=== PATIENT | female | born 1995 | race Two or more races ===

== ENCOUNTER 2021-04-28 03:15 | Emergency (ER) | payer MEDICAID, SELFPAY ==
[2021-04-28 03:16] VITALS: BP 120/97; PULSE 77; RESP 18; TEMP 36.2; O2SAT 99; BMI 32.3
--- NOTE | 2021-04-28 03:23 | EKG12_ITS ---
Test Reason : CP Blood Pressure : / mmHG Vent. Rate : 094 BPM Atrial Rate : 094 BPM P-R Int : 192 ms QRS Dur : 084 ms QT Int : 358 ms P-R-T Axes : 040 057 037 degrees QTc Int : 447 ms Normal sinus rhythm Normal ECG Confirmed by LOLLY ALONZO, GABINO ([id number]), film editor LEELEE ESCAMILLA ([id number]) on 05/02/2021 7:47:48 AM Referred By: TAB Confirmed By:GABINO AMBROCIO MD
--- NOTE | 2021-04-28 03:23 | RAD_ITS ---
STUDY: X-RAY CHEST REASON FOR EXAM: Female, 26 years old. Chest pain TECHNIQUE: Portable, upright, AP chest radiograph COMPARISON: None. FINDINGS: The lungs are clear and expanded. There is no demonstrated pleural abnormality. Normal size heart. Normal mediastinum and graciela. Normal visualized pulmonary arteries. Normal visualized aortic arch and descending thoracic aorta. Normal visualized thoracic spine. Normal visualized ribs, clavicles, and shoulders. There is no demonstrated abnormality of the visualized soft tissue structures of the upper abdomen. RAD/Chest 1 View (Portable) IMPRESSION: Normal x-ray examination of the chest. Electronically Signed: Yang Gilbert MD at 4:19 EDT Tel , Service support ,
[2021-04-28 03:45] LABS: Absolute Lymphocyte Count 2.74 X10^3/uL (0.83-4.51); Absolute Neutrophil Count 3.9 X10^3/uL (2.0-7.7); Basophil# 0.02 X10^3/uL; Basophil% 0.3 % (0-1); Eosinophil# 0.11 X10^3/uL; Eosinophils% 1.5 % (0-5); Hematocrit 37.8 % (37-47); Hemoglobin 12.3 g/dL (12.0-15.0); Lymphocyte # 2.74 X10^3/ul (0.83-4.51); Lymphocyte % 38.2 % (19-41); Mean Corp Hgb Conc 32.5 g/dL (32-36); Mean Corpuscular Hgb 29.5 pg (27.0-32.0); Mean Corpuscular Volume 90.6 fL (81-99); Mean Platelet Vol. 11.8 fl (6.2-12.0); Monocyte# 0.41 X10^3/uL; Monocyte% 5.7 % (0-10); NRBC Flagged by Analyzer 0 % (0-5); Neutrophil # 3.89 X10^3/uL (2.7-7.7); Neutrophil % 54.2 % (47-70); Platelet Count 190 K/mm3 (150-450); RBC Distribution Width CV 12.7 % (11.6-14.6); RBC Distribution Width SD 41.9 fl (35.1-43.9); Red Blood Count 4.17 M/mm3 (4.2-5.4); White Blood Count 7.2 K/mm3 (4.4-11.0)
[2021-04-28 04:19] LABS: Anion Gap 6 (5-15); BUN 7 mg/dL (7-18); BUN/Creat Ratio 9.3 RATIO (10-20); Calcium,Total 8.7 mg/dL (8.5-10.1); Chloride 108 mmol/L (98-107); Creatinine, Serum 0.75 mg/dL (0.55-1.02); EST Glomerular Filtration Rate 99 mL/min (>60); Est Glom Filt Rate - Afr Amer 119 mL/min (>60); Estimated Creatinine Clearance 122.92 ml/min; Glucose 124 mg/dL (74-106); Potassium 3.9 mmol/L (3.5-5.1); Sodium Level 140 mmol/L (136-145); Troponin-I HS 4 pg/mL (3.0-54.0)
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
[2021-04-28 05:42] VITALS: RESP 16
== END 2021-04-28 05:43 | disposition home or self-care (01) ==
PROVIDERS: Emergency Provider Emergency Medicine
DX: R07.9 Chest pain, unspecified (principal); R20.2 Paresthesia of skin; M54.2 Cervicalgia; R20.0 Anesthesia of skin; R73.9 Hyperglycemia, unspecified; E66.9 Obesity, unspecified; F17.210 Nicotine dependence, cigarettes, uncomplicated
CPT/HCPCS: 71045; 80048; 84484; 85025; 87426; 93005; 99285; A4216

== ENCOUNTER 2021-05-17 23:35 | Emergency (ER) | payer MEDICAID, SELFPAY ==
[2021-05-17 23:36] VITALS: BP 137/96; PULSE 97; RESP 15; TEMP 36.6; O2SAT 100; BMI 33.0
== END 2021-05-18 00:20 | disposition left against medical advice (07) ==
LOC: ED 05-18 00:44
DX: R05.9 Cough, unspecified (principal); Z53.21 Procedure and treatment not carried out due to patient leaving prior to being seen by health care provider

== ENCOUNTER 2021-05-25 04:45 | Emergency (ER) | payer MEDICAID, SELFPAY ==
[2021-05-25 04:48] VITALS: BP 147/99; PULSE 104; RESP 16; TEMP 35.9; O2SAT 98; BMI 32.6
--- NOTE | 2021-05-25 05:05 | EDS_ITS ---
HPI History of Present Illness Chief Complaint: Wound Informant: patient Narrative Narrative: Patient presents with swelling under her arms. She states the armpit on the right has been swollen for so long she cannot remember. It is always very soft. It is never tender. It never gets red. She thought she would mention it. Because it is different than the other side. She also has an area under the left axilla that has been getting inflamed and then draining. It was first noticed about a month and a half or 2 months ago. It swelled up and then went down. It recently swelled up and then started draining a couple days ago. Is now going down again. No fevers or chills. No trauma. She has no history of Gray problems. She has never had these seen or looked at. No antibiotics. No firm diagnosis of hidradenitis suppurativa. No history of diabetes. Nothing makes them better or worse specifically. After they drained they do tend to get better on the left. The right side has never had pain discomfort or drainage. The right side has not changed to any degree that she knows of. [facility] Medical History Anxiety Home Medications sulfamethoxazole-trimethoprim [Bactrim DS] 1 tab PO BID #20 tab 05/25/21 [Rx Last Taken Unknown] Allergy/AdvReac Type Severity Reaction Status Date / Time acetaminophen [From Vicodin] Allergy Hives Verified 05/25/21 04:46 hydrocodone [From Vicodin] Allergy Hives Verified 05/25/21 04:46 Social History Smoking Status: Current every day smoker tobacco type: cigarettes ROS ROS ED Constitutional Constitutional ED: Denies chills or fever(s) ENT ENT ED: Denies sore throat Cardiovascular Cardiovascular: Denies chest pain Respiratory/Chest Respiratory/Chest: Denies cough or dyspnea Gastrointestinal Gastrointestinal: Denies abdominal pain, nausea or vomiting Musculoskeletal Musculoskeletal: Denies arthralgias, back pain, myalgias or neck pain Integumentary Reports abscess and other Details: See history of present illness. Neurologic Neurologic: Denies headache(s) or weakness Psychiatric Psychiatric: Denies anxiety or depression Endocrine Endocrinology: Denies polydipsia or polyuria Allergic/Immunologic Allergic/Immunologic ED: Denies mouth swelling or urticaria EXAM Physical Exam Const Vital Signs: 05/25/21 04:48 Temperature 96.7 F L Temperature Source Oral Pulse Rate 104 H Respiratory Rate 16 Blood Pressure 147/99 H Blood Pressure Mean 115 Pulse Ox 98 Oxygen Delivery Method Room Air Positive well nourished, well developed and obese General Appearance ED: well developed and NAD Nutritional Appearance: obese HEENT Negative for trauma Eyes General Eye ED: Negative for pale conjunctiva or scleral icterus Neck no JVD Resp normal respiratory effort and clear to auscultation bilaterally Cardio regular rate and regular rhythm GI normal to inspection, nondistended, normoactive bowel sounds and non-tender Palpation: soft Skin Skin Narrative: The right axilla has an area that just seems to be soft and swollen. It is approximately 7 x 10 cm. Not real well-circumscribed or defined. It is not at all tender. Is not red. No sign of abscess. This feels like it may either be a lipoma or possible accessory breast tissue since it has been there for so long. The left axilla does not have the swelling of the right. There is an area that has some firm swelling that is only about a centimeter half around. In the middle of it there is an open hole. There has been some drainage but no active drainage. There is some mild erythema. There is no fluctuance. MDM MDM MDM Narrative Medical decision making narrative: I explained to the patient that the axilla on the right needs follow-up. It may need ultrasound or even fine-needle biopsy. It does not need incision or drainage at this time. There is no sign of abscess formation whatsoever. The left side is already drained. It is going down. But there is some erythema. We will treat with antibiotics. I explained that this is more consistent with hidradenitis suppurativa on the left. This will likely need a more formal procedure for final treatment. I do not think incision would help at this point. She did have an appointment with a tub tender but she missed it. I explained she should follow-up with dermatology. I will also give a referral to surgery so she can be seen for these as I think that might be needed for this area especially in the right axilla. Discharge Plan Triage Chief Complaint: Wound ED Provider: Alberto Marks Dx/Rx/DC Orders Clinical Impression: Axillary hidradenitis suppurativa, Right axillary swelling Instructions: ED Hidradenitis Suppurativa, Abx Prescriptions: New sulfamethoxazole-trimethoprim [Bactrim DS] 800-160 mg tablet 1 tab PO BID Qty: 20 RF: 0 Primary Care Provider: Care Physician,No Primary Referrals: Grzegorz Weston MD [STAFF PHYSICIAN] - As soon as possible Care Physician,No Primary [Primary Care Provider] - Disposition Disposition: Home, Self Care
== END 2021-05-25 05:23 | disposition home or self-care (01) ==
PROVIDERS: Emergency Provider Emergency Medicine
DX: L73.2 Hidradenitis suppurativa (principal); F17.210 Nicotine dependence, cigarettes, uncomplicated; E66.9 Obesity, unspecified
CPT/HCPCS: 99282

== ENCOUNTER → 2021-06-01 15:14 | Outpatient (CLI) | payer MEDICAID, SELFPAY ==
--- NOTE | 2021-06-01 15:50 | RAD_ITS ---
STUDY: X-RAY - CERVICAL SPINE REASON FOR EXAM: Female, 26 years old. Pain and stiffness TECHNIQUE: 3 view(s) of the cervical spine were obtained. COMPARISON: None FINDINGS: Normal anterior atlantoaxial articulation. Normal odontoid process. There is straightening of the normal cervical lordosis. Normal vertebral bodies and endplates. There is minimal disc space narrowing C4-C5 C5-C6. Normal visualized intervertebral neuroforamina. The soft tissue structures are unremarkable. RAD/Cerv Spine 2 or 3 Views IMPRESSION: Minimal degenerative change. No visualized fracture. Straightening of the physiologic lordosis may be associated with muscle spasm or pain. Electronically Signed: Tamar Duff MD at 2:28 EDT Tel , Service support ,
[2021-06-01 16:52] LABS: Absolute Lymphocyte Count 2.34 X10^3/uL (0.83-4.51); Absolute Neutrophil Count 3.7 X10^3/uL (2.0-7.7); Basophil# 0.02 X10^3/uL; Basophil% 0.3 % (0-1); Eosinophil# 0.12 X10^3/uL; Eosinophils% 1.8 % (0-5); Hematocrit 38.4 % (37-47); Hemoglobin 12.8 g/dL (12.0-15.0); Lymphocyte # 2.34 X10^3/ul (0.83-4.51); Lymphocyte % 35.3 % (19-41); Mean Corp Hgb Conc 33.3 g/dL (32-36); Mean Corpuscular Hgb 29.5 pg (27.0-32.0); Mean Corpuscular Volume 88.5 fL (81-99); Mean Platelet Vol. 11.9 fl (6.2-12.0); Monocyte# 0.42 X10^3/uL; Monocyte% 6.3 % (0-10); NRBC Flagged by Analyzer 0 % (0-5); Neutrophil # 3.72 X10^3/uL (2.7-7.7); Neutrophil % 56.1 % (47-70); Platelet Count 222 K/mm3 (150-450); RBC Distribution Width CV 12.7 % (11.6-14.6); RBC Distribution Width SD 41.3 fl (35.1-43.9); Red Blood Count 4.34 M/mm3 (4.2-5.4); White Blood Count 6.6 K/mm3 (4.4-11.0)
[2021-06-01 16:59] LABS: Vitamin B12 337 pg/mL (211-911)
[2021-06-01 17:06] LABS: Hemoglobin A1c 6.3 % (3.8-5.6)
[2021-06-01 17:10] LABS: AST(SGOT) 14 U/L (15-37); Alanine Aminotransfer ALT/SGPT 29 U/L (13-56); Albumin, Serum 3.9 g/dL (3.2-5.0); Alkaline Phosphatase 91 U/L (45-117); Anion Gap 4 (5-15); BUN 6 mg/dL (7-18); BUN/Creat Ratio 7.5 RATIO (10-20); Calcium,Total 9.2 mg/dL (8.5-10.1); Chloride 105 mmol/L (98-107); EST Glomerular Filtration Rate 92 mL/min (>60); Est Glom Filt Rate - Afr Amer 111 mL/min (>60); Glucose 130 mg/dL (74-106); Magnesium 2.3 mg/dL (1.6-2.6); Protein, Total 7.9 g/dL (6.4-8.2); Sodium Level 137 mmol/L (136-145); Thyroid Stim Hormone (TSH) 0.55 uIU/mL (0.358-3.74)
== END ==
PROVIDERS: PCP Internal Medicine; Referring Provider Nurse Practitioner Family; Visit Provider Nurse Practitioner Family
DX: M54.2 Cervicalgia (principal); M54.12 Radiculopathy, cervical region; R20.2 Paresthesia of skin; F41.9 Anxiety disorder, unspecified; R73.09 Other abnormal glucose
CPT/HCPCS: 36415; 72040; 80053; 82607; 83036; 83735; 84443; 85025

== ENCOUNTER → 2021-06-09 12:49 | Outpatient (CLI) | payer MEDICAID, SELFPAY ==
[2021-06-13 18:07] LABS: Free Kappa Light Chains 16.7 mg/L (3.3-19.4); Free Lambda Light Chains 17.2 mg/L (5.7-26.3)
== END ==
PROVIDERS: PCP Internal Medicine; Referring Provider Psychiatry & Neurology Neurology; Visit Provider Psychiatry & Neurology Neurology
DX: R20.2 Paresthesia of skin (principal)
CPT/HCPCS: 36415; 82746; 83883

== ENCOUNTER 2024-04-03 06:09 | Emergency (ER) | payer MEDICAID, SELFPAY ==
[2024-04-03 06:10] VITALS: BP 129/99; PULSE 90; RESP 14; TEMP 36.7; O2SAT 98; BMI 30.8
[2024-04-03 06:16] VITALS: BP 129/99; PULSE 90; RESP 18; TEMP 36.7; O2SAT 99
--- NOTE | 2024-04-03 06:23 | EKG12_ITS ---
Test Reason : GEN ILLNESS Blood Pressure : / mmHG Vent. Rate : 083 BPM Atrial Rate : 083 BPM P-R Int : 190 ms QRS Dur : 086 ms QT Int : 372 ms P-R-T Axes : 031 053 030 degrees QTc Int : 437 ms Normal sinus rhythm Normal ECG Confirmed by LOLLY ALONZO, GABINO ([id number]), pictures editor LEELEE ESCAMILLA ([id number]) on 04/03/2024 1:56:29 PM Referred By: Confirmed By:GABINO AMBROCIO MD
--- NOTE | 2024-04-03 06:24 | EDS_ITS ---
HPI History of Present Illness Chief Complaint: General Illness Narrative Narrative: 29-year-old female presents with multiple somatic complaints, stating that yesterday, she began having a runny nose and she has sick contacts in her kids. She also recently found out that she was . She is unsure of her last menstrual period but thinks that it was February 17, approximately a month and a half ago. She denies any vaginal bleeding or pelvic pressure or pain, but states she had cramping. She believes she is a G7, P5 as she did a home test that was positive. She is now far along she is in her . She presents today because she states that she awoke this morning at 5 AM, approximately an hour and a half ago and had a fast, pounding heart rate. She states she still feels like her heart is racing. She is also diabetic and takes metformin 500 mg daily. She states with her last they changed her to insulin because she had gestational diabetes, but she has not followed up with an [facility] yet. [facility] Medical History Anxiety Paresthesias Cervical radiculopathy Cervicalgia Anxiety Home Medications ?Medication ?Instructions ?Recorded ?Last Taken ?Type duloxetine 30 mg capsule,delayed 30 mg PO DAILY #30 caps 06/01/21 Unknown Rx release (Cymbalta) duloxetine 30 mg capsule,delayed 30 mg PO DAILY #7 caps 06/09/21 Unknown Rx release duloxetine 60 mg capsule,delayed 60 mg PO DAILY #30 caps 06/09/21 Unknown Rx release ferrous sulfate 325 mg (65 mg PO 04/03/24 Unknown History iron) tablet (FeroSul) metformin 500 mg tablet 500 mg PO DAILY 04/03/24 Unknown History Allergy/AdvReac Type Severity Reaction Status Date / Time acetaminophen (From Vicodin) Allergy Hives Verified 04/03/24 06:10 hydrocodone (From Vicodin) Allergy Hives Verified 04/03/24 06:10 Family History Other Cancer Diabetes Seizures Social History Smoking Status: Current every day smoker tobacco type: cigarettes Tobacco: How many years used: 6 second hand exposure: Yes alcohol intake: current alcohol intake frequency: holidays/special occasions only substance use type: former substance user Date of last use: used some marijuana in the past ROS ROS ED ROS Narrative Constitutional: No fever, no chills. HEENT: No sore throat. No neck pain. No loss of vision. Positive nasal congestion and rhinorrhea. Cardiovascular: No chest pain. Positive fast, pounding heart rate/palpitations. No pedal edema. Respiratory: No cough, no shortness of breath. Abdominal: No abdominal pain. Cramping. No nausea. No vomiting. Genitourinary: No dysuria. No hematuria. Musculoskeletal: No myalgias. No arthralgias. Neurologic: Positive headaches. No dizziness. No lightheadedness. Skin: No rash. No change in color. Psychiatric: No depression. No anxiety. EXAM Physical Exam Narrative Exam Narrative: Afebrile. Vital signs noted. HEENT: Normocephalic. Atraumatic. PERRL, EOMI. Neck soft and supple. No point tenderness or step off. Alternating rhinorrhea and nasal congestion. Cardiovascular: Regular rate and rhythm. No murmurs, rubs, or gallops appreciated. Respiratory: No tachypnea. Lungs clear to auscultation bilaterally. Gastrointestinal: Abdomen soft, nontender, with normoactive bowel sounds. No rebound or guarding. Neurological: Awake. Alert. Nonfocal, nonlateralizing. Skin: No rash. Normal color. No pallor. Musculoskeletal: No pedal edema. Full range of motion extremities. Const Vital Signs: 04/03/24 06:10 04/03/24 06:10 04/03/24 06:16 Temperature 98.1 F 98.1 F Temperature Source Oral Oral Pulse Rate 90 90 Respiratory Rate 14 18 Respiratory Effort Normal Non-Labored Respiratory Pattern Normal Blood Pressure 129/99 H 129/99 H Blood Pressure Mean 109 109 Pulse Ox 98 99 Oxygen Delivery Method Room Air Room Air MDM MDM MDM Narrative Medical decision making narrative: Differential diagnosis includes upper respiratory infection from COVID/influenza/RSV versus other virus. I have low concern for pneumonia. Pulse ox is 98% on room air without evidence of hypoxia. For her palpitations, she may be dehydrated but she does not appear anemic on examination. Although she is not having vaginal bleeding or pelvic pain, given her cramping, ectopic would be in the differential. She will be swabbed for COVID and influenza and RSV. EKG will be obtained, but she is not tachycardic currently. I do not feel that she requires an x-ray. I will obtain a CBC and a CMP as well as a urine and hCG titer. Should her urine test be positive, hCG quantitative will be obtained. She may require ultrasound should she be to rule out ectopic. EKG was obtained and interpreted by myself independently as normal sinus rhythm at 83 bpm without ectopy or acute ST changes. No STEMI. She is not tachycardic on her EKG so I am unsure as to the cause of her reported palpitations. I reviewed her CBC and she has normal white count of 5.1, hemoglobin stable at 11.5, hematocrit 36.1, platelet count 167. When compared to previous laboratories, she is only slightly anemic so I do not feel that this would be the cause of her palpitations either. In review of her other laboratories, she has normal sodium of 136, potassium normal at 3.7, BUN of 7 and creatinine 0.74, glucose appropriately elevated at 110 with a normal anion gap of 5 so I doubt diabetic ketoacidosis. LFTs are grossly unremarkable. hCG quantitative elevated at 434. Although this is too low to see anything on ultrasound, this was ordered for baseline. I had a discussion with the patient that she needs to have her beta hCG redrawn in 2 days at this hospital and follow-up with the [facility] on-call. At this point in time, patient will be signed out to Dr. Guerin to check the urinalysis, and her COVID swab, and discussed the patient with Dr. Maurice to arrange for close follow-up. Additionally, patient was told that ectopic cannot be ruled out as well as possible miscarriage as she is unsure of her last menstrual period. I anticipate discharge, but final disposition is pending. Patient is in stable condition. History & Record Review Discussion w/independent historian: Patient Lab Data Attestation: I reviewed the patient's lab results. Labs: Laboratory Results - last 24 hr 04/03/24 06:30 WBC 5.1 RBC 4.25 Hgb 11.5 L Hct 36.1 L MCV 84.9 MCH 27.1 MCHC 31.9 L RDW Std Deviation 54.1 H RDW Coeff of Ghada 17.5 H Plt Count 167 MPV 11.2 Immature Gran % (Auto) 0.200 Neut % (Auto) 42.5 L Lymph % (Auto) 44.2 H [place] % (Auto) 10.9 H Eos % (Auto) 2.0 Baso % (Auto) 0.2 Absolute Neuts (auto) 2.2 Absolute Lymphs (auto) 2.23 Nucleated RBC % 0 Sodium 136 Potassium 3.7 Chloride 106 Carbon Dioxide 25.0 Anion Gap 5 BUN 7 Creatinine 0.74 Estim Creat Clear Calc 141.89 Est GFR (MDRD) Af Amer 118 Est GFR (MDRD) Non-Af 98 BUN/Creatinine Ratio 9.4 L Glucose 110 H Calcium 8.8 Total Bilirubin 0.10 L AST 16 ALT 17 Alkaline Phosphatase 50 Total Protein 7.1 Albumin 3.5 Globulin 3.6 Albumin/Globulin Ratio 1.0 HCG, Quant 434 H Discharge Plan Triage Chief Complaint: General Illness ED Provider: René Mohan Dx/Rx/DC Orders Prescriptions: No Action duloxetine 30 mg capsule,delayed release(DR/EC) 30 mg PO DAILY Qty: 7 0RF duloxetine 60 mg capsule,delayed release(DR/EC) 60 mg PO DAILY Qty: 30 2RF Rx Instructions: begin after completing one week course of duloxetine 30mg daily duloxetine [Cymbalta] 30 mg capsule,delayed release(DR/EC) 30 mg PO DAILY Qty: 30 1RF metformin 500 mg tablet 500 mg PO DAILY ferrous sulfate [FeroSul] 325 mg (65 mg iron) tablet PO Other Ambulatory Orders: hCG Titer Quant., Serum (Routine) Timeframe: 2 Days Facility: [facility] - Location: Laboratory Ordered By: René Mohan Primary Care Provider: Care Physician,No Primary Referrals: Kizzy Jimenez MD [Med Staff - Active Staff] - 3-5 Days [facility] Doctor,Out of [Non-Staff] - Print Language: Latvian
[2024-04-03 06:42] LABS: Bacteria 0 SEEN /hpf (None Seen); Mucous, Urine 0 SEEN /hpf (<or=2+); Red Blood Cells-Urine 0 SEEN /hpf (0-5); White Blood Cells 0 SEEN /hpf (0-5)
[2024-04-03 06:43] LABS: Absolute Lymphocyte Count 2.23 X10^3/uL (0.83-4.51); Absolute Neutrophil Count 2.2 X10^3/uL (2.0-7.7); Basophil# 0.01 X10^3/uL; Basophil% 0.2 % (0-1); Hematocrit 36.1 % (37-47); Hemoglobin 11.5 g/dL (12.0-15.0); Lymphocyte # 2.23 X10^3/ul (0.83-4.51); Lymphocyte % 44.2 % (19-41); Mean Corp Hgb Conc 31.9 g/dL (32-36); Mean Corpuscular Hgb 27.1 pg (27.0-32.0); Mean Corpuscular Volume 84.9 fL (81-99); Mean Platelet Vol. 11.2 fl (6.2-12.0); Monocyte# 0.55 X10^3/uL; Monocyte% 10.9 % (0-10); NRBC Flagged by Analyzer 0 % (0-5); Neutrophil # 2.15 X10^3/uL (2.7-7.7); Neutrophil % 42.5 % (47-70); Platelet Count 167 K/mm3 (150-450); RBC Distribution Width CV 17.5 % (11.6-14.6); RBC Distribution Width SD 54.1 fl (35.1-43.9); Red Blood Count 4.25 M/mm3 (4.2-5.4); White Blood Count 5.1 K/mm3 (4.4-11.0)
[2024-04-03 06:46] LABS: Color, Urine Yellow (Yellow); Glucose, Dipstick Normal (Normal); Ketone-Dipstick Negative (Negative); Leukocyte Esterase-Dipstick Negative /ul (Negative); Nitrite-Dipstick Negative (Negative); Occult Blood-Urine Negative /ul (Negative); Protein-Dipstick Negative (Negative); Specific Gravity, Urine 1.015 (1.002-1.030); Urine Bilirubin Dipstick Negative (Negative); Urine Clarity Clear (Clear); Urine Urobilinogen Normal (Normal)
[2024-04-03 06:50] LABS: Internal QC Validated? YES +Cl - CLEAR BKGD
[2024-04-03 06:52] LABS: Pregnancy, Urine Positive Negative
[2024-04-03 07:00] LABS: AST(SGOT) 16 U/L (15-37); Alanine Aminotransfer ALT/SGPT 17 U/L (13-56); Albumin, Serum 3.5 g/dL (3.2-5.0); Alkaline Phosphatase 50 U/L (45-117); Anion Gap 5 (5-15); BUN 7 mg/dL (7-18); BUN/Creat Ratio 9.4 RATIO (10-20); Calcium,Total 8.8 mg/dL (8.5-10.1); Chloride 106 mmol/L (98-107); Creatinine, Serum 0.74 mg/dL (0.55-1.02); EST Glomerular Filtration Rate 98 mL/min (>60); Est Glom Filt Rate - Afr Amer 118 mL/min (>60); Estimated Creatinine Clearance 141.89 ml/min; Globulin 3.6 g/dL (2.2-4.2); Glucose 110 mg/dL (74-106); Potassium 3.7 mmol/L (3.5-5.1); Protein, Total 7.1 g/dL (6.4-8.2); Sodium Level 136 mmol/L (136-145)
[2024-04-03 07:01] LABS: hCG Titer Quant., Serum 434 mIU/mL (1-3)
--- NOTE | 2024-04-03 07:02 | US_ITS ---
EXAM: US , TRANSVAGINAL CLINICAL INDICATION: Elevated Beta hcg Elevated Beta hcg TECHNIQUE: Real-time transvaginal obstetrical ultrasound of the maternal pelvis and a first trimester with image documentation. Transvaginal imaging was used for better evaluation of the fetus and adnexa. COMPARISON: No relevant prior studies available. FINDINGS: GESTATION: There is a 0.5 x 1.0 x 0.6 cm fluid collection in the endometrium of the uterine fundus which questionably represents an early intrauterine gestational sac. This is too small for age estimation. There is no demonstrated pole or yolk sac. PLACENTA/AMNIOTIC FLUID: Cannot be adequately evaluated due to the early gestational age. UTERUS/CERVIX: The uterus is anteverted and measures 12.3 x 9.3 x 7.4 cm. The endometrium is hyperechoic and is thickened, measuring 2.4 cm. No myometrial mass. OVARIES: Ovary was not successfully visualized. The left ovary measures 3.4 x 2.0 x 1.9 cm. There is vascular flow in the left ovary. FREE FLUID: No free fluid. US/Transvaginal w/Preg US IMPRESSION: 1. Small fluid collection in the endometrium of the uterine fundus might represent an early intrauterine gestation, however, the appearance is nonspecific.. 2. There are no positive findings for ectopic in this study, however, an occult ectopic cannot be excluded in the absence of a definitively demonstrated intrauterine gestation. Suggest correlation with serial quantitative ? hCG measurements as well as follow-up ultrasound.. Electronically Signed: Zack Carlos MD at 7:55 EDT ,
[2024-04-03 07:21] LABS: Squamous Epithelial Cells - UA 0-5 SEEN /hpf (5-10)
[2024-04-03 08:10] VITALS: BP 114/59; PULSE 71; RESP 19; O2SAT 97
[2024-04-03 09:57] VITALS: BP 106/70; PULSE 79; RESP 17; O2SAT 100
[2024-04-03 10:18] VITALS: BP 115/83; PULSE 89; RESP 18; TEMP 36.7; O2SAT 97
== END 2024-04-03 10:19 | disposition home or self-care (01) ==
PROVIDERS: Emergency Provider Emergency Medicine; Visit Provider Emergency Medicine
DX: O98.519 Other viral diseases complicating pregnancy, unspecified trimester (principal); O99.330 Smoking (tobacco) complicating pregnancy, unspecified trimester; Z79.84 Long term (current) use of oral hypoglycemic drugs; F17.210 Nicotine dependence, cigarettes, uncomplicated; U07.1 COVID-19; O24.119 Pre-existing type 2 diabetes mellitus, in pregnancy, unspecified trimester; Z3A.00 Weeks of gestation of pregnancy not specified
CPT/HCPCS: 76817; 80053; 81001; 81025; 84702; 85025; 87631; 93005; 99283

== ENCOUNTER → 2024-04-05 | Outpatient (CLI) | payer MEDICAID, SELFPAY ==
[2024-04-05 13:56] LABS: hCG Titer Quant., Serum 787 mIU/mL (1-3)
== END | disposition home or self-care (01) ==
LOC: LAB 13:17
PROVIDERS: Visit Provider Emergency Medicine
DX: R79.89 Other specified abnormal findings of blood chemistry (principal)
CPT/HCPCS: 84702

== ENCOUNTER 2024-05-08 03:47 | Emergency (ER) | payer MEDICAID, SELFPAY ==
[2024-05-08 03:47] VITALS: BP 125/79; PULSE 90; RESP 18; TEMP 36.8; O2SAT 99; BMI 31.3
--- NOTE | 2024-05-08 04:05 | RAD_ITS ---
INDICATION: dyspnea EXAMINATION/TECHNIQUE: X-RAY - XR Chest 2 Views COMPARISON: CR ChestSep 2020 3:39am FINDINGS: LINES/DEVICES: None. LUNGS: No consolidation, edema or effusion. No pneumothorax. MEDIASTINUM AND CARDIOVASCULAR STRUCTURES: Cardiac silhouette not enlarged. Central airways and mediastinal contour are unremarkable. BONES AND SOFT TISSUES: Unremarkable. RAD/Chest PA and Lateral IMPRESSION: No radiographic evidence of acute cardiopulmonary disease. Electronically Signed: Ning Hess MD at 4:43 EDT ,
--- NOTE | 2024-05-08 04:08 | EDS_ITS ---
HPI History of Present Illness Chief Complaint: Shortness of Breath Informant: patient and spouse/S.O. Narrative Narrative: Patient is a 29-year-old female with past medical history of anxiety iron deficiency anemia and diabetes on metformin. She states that just a few days ago she had undergo a D&C for a spontaneous miscarriage that led to profuse bleeding. She states that she stays up throughout the evening and roughly 2 hours prior to arrival while at rest she felt shaky and short of breath. She denies any sick symptoms such as congestion drainage or cough. She denies any hormone use or previous history of DVT/PE. She does state that she is concerned about need for blood transfusion based on the amount that she was bleeding during her miscarriage and therefore with the shortness of breath sensation she presents for evaluation [facility] Medical History Anxiety Paresthesias Cervical radiculopathy Cervicalgia Anxiety Home Medications ?Medication ?Instructions ?Recorded ?Last Taken ?Type duloxetine 30 mg capsule,delayed 30 mg PO DAILY #30 caps 06/01/21 Unknown Rx release (Cymbalta) duloxetine 30 mg capsule,delayed 30 mg PO DAILY #7 caps 06/09/21 Unknown Rx release duloxetine 60 mg capsule,delayed 60 mg PO DAILY #30 caps 06/09/21 Unknown Rx release ferrous sulfate 325 mg (65 mg 325 mg PO 04/03/24 Unknown History iron) tablet (FeroSul) metformin 500 mg tablet 500 mg PO DAILY 04/03/24 Unknown History Allergy/AdvReac Type Severity Reaction Status Date / Time acetaminophen (From Vicodin) Allergy Hives Verified 04/03/24 06:10 hydrocodone (From Vicodin) Allergy Hives Verified 04/03/24 06:10 Family History Other Cancer Diabetes Seizures Social History Smoking Status: Current every day smoker tobacco type: cigarettes Tobacco: How many years used: 6 second hand exposure: Yes alcohol intake: current alcohol intake frequency: holidays/special occasions only substance use type: former substance user Date of last use: used some marijuana in the past ROS ROS ED Constitutional Constitutional ED: Denies chills or fever(s) Eyes Eyes: Denies blurry vision or change in vision ENT ENT ED: Denies rhinorrhea or sore throat Cardiovascular Cardiovascular: Denies chest pain, palpitations or racing heartbeat Respiratory/Chest Respiratory/Chest: Reports dyspnea; Denies cough Gastrointestinal Gastrointestinal: Denies abdominal pain, diarrhea, nausea or vomiting Genitourinary Genitourinary ED: Denies dysuria Musculoskeletal Musculoskeletal: Denies myalgias Integumentary Denies rash Neurologic Neurologic: Denies headache(s) Psychiatric Psychiatric: Reports anxiety Hematologic/Lymphatic Hematologic/Lymphatic: Denies easy bleeding or easy bruising Allergic/Immunologic Allergic/Immunologic ED: Denies mouth swelling or tongue swelling EXAM Physical Exam Const Vital Signs: 05/08/24 03:47 Temperature 98.3 F Temperature Source Oral Pulse Rate 90 Respiratory Rate 18 Blood Pressure 125/79 H Blood Pressure Mean 94 Pulse Ox 99 Oxygen Delivery Method Room Air Positive well nourished and well developed General Appearance ED: well developed; Negative for pallor HEENT HEENT Narrative: No tongue or lip swelling no oral lesions no airway edema or compromise Eyes PERRL and EOMs intact bilaterally General Eye ED: Yes pale conjunctiva; Negative for scleral icterus Neck supple and no JVD Neck Narrative: No nuchal rigidity or meningeal signs Chest Wall palpation of chest normal Resp normal respiratory effort Resp Narrative: Patient has faint rhonchi present in the bilateral lower lobes but otherwise no nasal flaring retractions tachypnea accessory muscle use stridor or shortness of breath with speech Cardio regular rate and regular rhythm Rate: other Other Details: Heart is regular rate and rhythm without murmurs rubs or gallops Radial and carotid pulses are equal and symmetric Extremity normal to inspection Extremity Narrative: No asymmetric edema no pitting edema negative Homans' sign bilaterally Neuro oriented x3, CN's II-XII intact bilaterally and no sensory deficits noted Sensorium / Orientation: alert Motor Exam: strength 5/5 throughout Psych Psych Narrative: Patient has a nervous/anxious affect Mood & Affect: anxious Skin no rashes or lesions noted General Skin Exam: Negative for jaundice or pallor MDM MDM MDM Narrative Medical decision making narrative: Patient arrived to the ER with stable vitals and in no acute respiratory distress. She reported shortness of breath but was satting at 100% on room air and had no increased work of breathing or abnormal breath sounds. With her recent spontaneous miscarriage report of bleeding and D&C there is concern for acute blood loss anemia as well as pneumonia or PE. Secondary to this basic blood work was obtained with a D-dimer and chest x-ray. Chest x-ray revealed no acute findings in the lung. D-dimer was elevated however and therefore CTA was obtained. CTA was normal without findings for pneumonia pneumothorax pleural effusion or pulmonary embolus. The patient's hemoglobin is low at 8.6 and this is dropped roughly 3 points in the last 5 weeks. However she is not hypotensive or tachycardic she is not having bouts of orthostatic hypotension and reporting passing out with changes in position. She also states that her bleeding is much improved and only going through roughly 1-2 pads a day versus 3 pads an hour before she had her D&C. Therefore at this time as she is hemodynamically stable with a hemoglobin above a transfusion value and reports that her bleeding is minimal compared to previous I do not feel there is need for OB consultation or admission. Patient can be discharged and follow-up with them on an outpatient basis as previously directed History & Record Review Discussion w/independent historian: Patient Lab Data Attestation: I reviewed the patient's lab results. Labs: Laboratory Results - last 24 hr 05/08/24 04:13 WBC 7.4 RBC 3.01 L Hgb 8.6 L Hct 26.7 L MCV 88.7 MCH 28.6 MCHC 32.2 RDW Std Deviation 53.8 H RDW Coeff of Ghada 16.6 H Plt Count 142 L MPV 11.5 Immature Gran % (Auto) 0.300 Neut % (Auto) 46.4 L Lymph % (Auto) 43.4 H [place] % (Auto) 6.1 Eos % (Auto) 3.4 Baso % (Auto) 0.4 Absolute Neuts (auto) 3.4 Absolute Lymphs (auto) 3.19 Nucleated RBC % 0 D-Dimer Quant (PE/DVT) 0.91 H* Sodium 138 Potassium 4.1 Chloride 106 Carbon Dioxide 30.0 Anion Gap 2 L BUN 14 Creatinine 0.78 Estim Creat Clear Calc 135.58 Est GFR (MDRD) Af Amer 112 Est GFR (MDRD) Non-Af 92 BUN/Creatinine Ratio 17.9 Glucose 114 H Calcium 8.6 Magnesium 2.1 Radiography Diagnostic Testing: Clinical Impression(s) from Imaging Studies Chest X-Ray 05/08/24 04:05 IMPRESSION: No radiographic evidence of acute cardiopulmonary disease. Electronically Signed: Ning Hess MD at 4:43 EDT Reading Location ID and State: [facility] / [place] Tel , Service support , Chest CTA 05/08/24 04:44 IMPRESSION: Normal CTA chest examination, without a demonstrated pulmonary embolism or arterial dissection. Electronically Signed: Ning Hess MD at 5:30 EDT , 2 view chest x-ray as interpreted by the emergency medicine physician reveals no acute infiltrate pneumothorax or pleural effusion Discharge Plan Triage Chief Complaint: Shortness of Breath ED Provider: Nelson Ulloa Dx/Rx/DC Orders Clinical Impression: Anemia, Dyspnea, Anxiety Instructions: Anemia, ED Dyspnea Prescriptions: No Action duloxetine 30 mg capsule,delayed release(DR/EC) 30 mg PO DAILY Qty: 7 0RF duloxetine 60 mg capsule,delayed release(DR/EC) 60 mg PO DAILY Qty: 30 2RF Rx Instructions: begin after completing one week course of duloxetine 30mg daily duloxetine [Cymbalta] 30 mg capsule,delayed release(DR/EC) 30 mg PO DAILY Qty: 30 1RF metformin 500 mg tablet 500 mg PO DAILY ferrous sulfate [FeroSul] 325 mg (65 mg iron) tablet 325 mg PO Primary Care Provider: ARLINE CORADO Referrals: Scarlett Ma MD [Med Staff - Active Staff] - Care Physician,No Primary [Non-Staff] - Activity Restrictions/Additional Instructions: Please follow-up with your MEDICAL INFORMATION OFFICER as directed. Please notify them of your hemoglobin value of 8.6 today in the ER and request repeat labs prior to your appointment. If your bleeding drastically increases or you are having bouts of fainting or any further concerns please return to the ER for repeat evaluation Print Language: Turkish Disposition Disposition: Home, Self Care
[2024-05-08 04:20] LABS: Absolute Lymphocyte Count 3.19 X10^3/uL (0.83-4.51); Absolute Neutrophil Count 3.4 X10^3/uL (2.0-7.7); Basophil# 0.03 X10^3/uL; Basophil% 0.4 % (0-1); Eosinophil# 0.25 X10^3/uL; Eosinophils% 3.4 % (0-5); Hematocrit 26.7 % (37-47); Hemoglobin 8.6 g/dL (12.0-15.0); Lymphocyte # 3.19 X10^3/ul (0.83-4.51); Lymphocyte % 43.4 % (19-41); Mean Corp Hgb Conc 32.2 g/dL (32-36); Mean Corpuscular Hgb 28.6 pg (27.0-32.0); Mean Corpuscular Volume 88.7 fL (81-99); Mean Platelet Vol. 11.5 fl (6.2-12.0); Monocyte# 0.45 X10^3/uL; Monocyte% 6.1 % (0-10); NRBC Flagged by Analyzer 0 % (0-5); Neutrophil # 3.41 X10^3/uL (2.7-7.7); Neutrophil % 46.4 % (47-70); Platelet Count 142 K/mm3 (150-450); RBC Distribution Width CV 16.6 % (11.6-14.6); RBC Distribution Width SD 53.8 fl (35.1-43.9); Red Blood Count 3.01 M/mm3 (4.2-5.4); White Blood Count 7.4 K/mm3 (4.4-11.0)
[2024-05-08 04:39] LABS: Anion Gap 2 (5-15); BUN 14 mg/dL (7-18); BUN/Creat Ratio 17.9 RATIO (10-20); Calcium,Total 8.6 mg/dL (8.5-10.1); Chloride 106 mmol/L (98-107); Creatinine, Serum 0.78 mg/dL (0.55-1.02); D-Dimer Quantitative (DVT/PE) 0.91 FEU/ug/m (0.27-0.49); EST Glomerular Filtration Rate 92 mL/min (>60); Est Glom Filt Rate - Afr Amer 112 mL/min (>60); Estimated Creatinine Clearance 135.58 ml/min; Glucose 114 mg/dL (74-106); Magnesium 2.1 mg/dL (1.6-2.6); Potassium 4.1 mmol/L (3.5-5.1); Sodium Level 138 mmol/L (136-145)
--- NOTE | 2024-05-08 04:44 | CT_ITS ---
STUDY: CTA CHEST REASON FOR EXAM: Female, 29 years old. dyspnea with elevated d-dimer RADIATION DOSAGE (If Supplied By Facility): CTDIvol = ( 19.35 ) mGy, DLP = ( 488.15 ) mGycm TECHNIQUE: The examination was performed with the intravenous administration of ISOVUE 370 100ML. Post-processing of the angiographic images was performed, with multiplanar reformation and 3D reconstruction. The protocol utilizes one or more of the following dose reduction techniques: automated exposure control, adjustment of mA and/or kV according to patient size,and/or use of iterative reconstruction technique. COMPARISON: No relevant prior comparison study available FINDINGS: Normal enhancement of the main pulmonary artery and right and left pulmonary arteries. Normal enhancement of the bilateral peripheral pulmonary arteries. There is no demonstrated pulmonary embolism. Normal thoracic aorta and visualized great vessels. There is no demonstrated aortic dissection. Normal heart and pericardium. Normal mediastinum. Normal hilar regions. Normal visualized trachea and bronchi. The lungs are well expanded. Normal pulmonary parenchyma. Normal pleura. Normal chest wall structures. Normal osseous structures. Normal visualized upper abdomen. CT/CTA Chest W/WO Contrast IMPRESSION: Normal CTA chest examination, without a demonstrated pulmonary embolism or arterial dissection. Electronically Signed: Ning Hess MD at 5:30 EDT ,
[2024-05-08 05:47] VITALS: BP 106/62; PULSE 81; RESP 18; O2SAT 95
[2024-05-08 05:54] VITALS: BP 106/62; PULSE 81; RESP 16; TEMP 36.6; O2SAT 95
[2024-05-08 05:55] VITALS: O2SAT 95
== END 2024-05-08 05:55 | disposition home or self-care (01) ==
PROVIDERS: Emergency Provider Emergency Medicine; Visit Provider Emergency Medicine
DX: D64.9 Anemia, unspecified (principal); E11.9 Type 2 diabetes mellitus without complications; R06.00 Dyspnea, unspecified; F41.9 Anxiety disorder, unspecified; Z79.84 Long term (current) use of oral hypoglycemic drugs
CPT/HCPCS: 71046; 71275; 80048; 83735; 85025; 85379; 99282; Q9967; A4216

== ENCOUNTER 2024-05-18 09:00 | Emergency (ER) | payer MEDICAID, SELFPAY ==
[2024-05-18 09:00] VITALS: BP 142/91; PULSE 87; RESP 18; TEMP 36.1; O2SAT 100; BMI 31.1
--- NOTE | 2024-05-18 09:20 | CT_ITS ---
INDICATION: headache EXAMINATION: CT BRAIN - CT Head or Brain W/O Contrast Injection TECHNIQUE: Multiple axial images were obtained of the head without intravenous contrast. The protocol utilizes one or more of the following dose reduction techniques: automated exposure control, adjustment of mA and/or kV according to patient size,and/or use of iterative reconstruction technique. IV Contrast dosage and agent: None. RADIATION DOSAGE (If Supplied By Facility): CTDIvol = ( 44.99 ) mGy, DLP = ( 832.67 ) mGycm COMPARISON: No relevant prior comparison study available FINDINGS: BRAIN PARENCHYMA: No intra- or extra-axial hemorrhage. No evidence of acute infarct. No intracranial mass or mass effect. There is preservation of the bagley/white matter interface. Posterior fossa structures are unremarkable. CSF SPACES: Appropriate for age. No hydrocephalus. Basal cisterns are patent. CALVARIUM, SKULL BASE, PARANASAL SINUSES AND MASTOID AIR CELLS: Clear. No discrete lytic or blastic abnormalities. ORBITS: Both globes, extraocular muscles, optic nerves and retrobulbar fat appear unremarkable. CT/Brain/Head without Contrast IMPRESSION: Negative Brain CT without contrast. Electronically Signed: Vitaliy Alberto MD at 10:36 EDT ,
--- NOTE | 2024-05-18 09:26 | EX.ED.DYSGE1 ---
HPI History of Present Illness Chief Complaint: Headache Informant: patient Narrative Narrative: 29-year-old female presenting to the emergency room with headache. Patient states for the past week she has had a frontal headache intermittently. She states she takes ibuprofen and gets better but then it comes back. She states that has been more constant this morning. She states that she did drink alcohol last night which probably did not help. She denies any rashes or fever. She denies any nasal congestion earache. She notes that she had a miscarriage and D&C in the preceding months. She states that she is not ever been diagnosed with migraines. She denies any neck pain. She denies any visual changes arm or leg symptoms. Headache is not positional in nature. [facility] Medical History Anxiety Paresthesias Cervical radiculopathy Cervicalgia Anxiety Home Medications ?Medication ?Instructions ?Recorded ?Last Taken ?Type duloxetine 30 mg capsule,delayed 30 mg PO DAILY #30 caps 06/01/21 Unknown Rx release (Cymbalta) duloxetine 30 mg capsule,delayed 30 mg PO DAILY #7 caps 06/09/21 Unknown Rx release duloxetine 60 mg capsule,delayed 60 mg PO DAILY #30 caps 06/09/21 Unknown Rx release ferrous sulfate 325 mg (65 mg 325 mg PO 04/03/24 Unknown History iron) tablet (FeroSul) metformin 500 mg tablet 500 mg PO DAILY 04/03/24 Unknown History [id number]-stnwmjwxaxzyq-[id number] 1 cap PO TID PRN pain #15 caps 05/18/24 Unknown Rx 50 mg-300 mg-40 mg capsule (Fioricet) Allergy/AdvReac Type Severity Reaction Status Date / Time acetaminophen (From Vicodin) Allergy Hives Verified 05/18/24 09:02 hydrocodone (From Vicodin) Allergy Hives Verified 05/18/24 09:02 Family History Other Cancer Diabetes Seizures Social History Smoking Status: Current every day smoker tobacco type: cigarettes Tobacco: How many years used: 6 second hand exposure: Yes alcohol intake: current alcohol intake frequency: holidays/special occasions only substance use type: former substance user Date of last use: used some marijuana in the past ROS ROS ED Constitutional Constitutional ED: Denies chills, fever(s) or weight loss Eyes Eyes: Denies blurry vision, change in vision or diplopia ENT ENT ED: Denies ear pain, rhinorrhea or sore throat Cardiovascular Cardiovascular: Denies chest pain, orthopnea, palpitations or racing heartbeat Respiratory/Chest Respiratory/Chest: Denies cough, dyspnea or orthopnea Gastrointestinal Gastrointestinal: Denies abdominal pain, diarrhea, nausea or vomiting Genitourinary Genitourinary ED: Denies dysuria, hematuria or urinary frequency Musculoskeletal Musculoskeletal: Denies arthralgias, myalgias or neck pain Integumentary Denies abscess or rash Neurologic Neurologic: Reports headache(s); Denies weakness Psychiatric Psychiatric: Denies anxiety, depression, suicidal ideation or suicidal thoughts Endocrine Endocrinology: Denies polydipsia, polyphagia or polyuria Allergic/Immunologic Allergic/Immunologic ED: Denies mouth swelling, tongue swelling or urticaria EXAM Physical Exam Const Vital Signs: 05/18/24 09:00 05/18/24 11:00 05/18/24 13:00 Temperature 96.9 F L Temperature Source Temporal Pulse Rate 87 77 78 Respiratory Rate 18 Blood Pressure 142/91 H 108/76 132/86 H Blood Pressure Mean 108 86 101 Pulse Ox 100 99 Oxygen Delivery Method Room Air 05/18/24 13:22 05/18/24 13:23 Temperature 97.8 F 97.8 F Temperature Source Pulse Rate 77 77 Respiratory Rate 16 16 Blood Pressure 127/68 H 127/68 H Blood Pressure Mean 87 87 Pulse Ox 99 99 Oxygen Delivery Method Positive well nourished and well developed General Appearance ED: well developed HEENT Reports normocephalic, head/scalp atraumatic and moist mucous membranes Eyes PERRL and EOMs intact bilaterally Eyes Narrative: No photophobia. Normal consensual reflex. No conjunctival injection. No ocular pain with movements Neck no lymphadenopathy, supple and no JVD Resp normal respiratory effort and clear to auscultation bilaterally Cardio regular rate, regular rhythm and no murmurs GI normal to inspection, nondistended, normoactive bowel sounds and non-tender Palpation: soft Back/Spine no CVA tenderness and normal ROM Extremity normal to inspection General Extremety ED: Negative for edema General Extremity: Negative for edema Neuro oriented x3 and CN's II-XII intact bilaterally Sensorium / Orientation: alert Motor Exam: strength 5/5 throughout Psych mental status grossly normal Mood & Affect: Negative for depressed or tearful Skin no rashes or lesions noted and no wounds MDM MDM MDM Narrative Medical decision making narrative: Differential thyroid does include but not limited to migraine headache sinusitis venous thrombosis stroke intracranial hemorrhage A CBC was obtained as the patient was noted to be anemic following her procedure and her last ED visit. Her hemoglobin is up to 9.5 white count 6.4 platelet count of 260. Does not appear to be a shift in the white count. Electrolytes appear within normal limits glucose noted to be 112 CT of the brain shows no acute findings. Patient received a dose of Toradol but notes no improvement. I am rather limited what I can give her as she has her 3 small children with her and she is driving. This does not sound like classic migraine. She still notes that there is more of a component that when she gets up she feels a swooshing pain from her occiput to the forehead. I do not think this is sinus related. She is neurovascularly intact with no deficits she ambulates normally I can write for some Fioricet but she would like to try. Would recommend PCP follow-up continued ibuprofen as it helps just does not relieve return if worsening or concerns History & Record Review Discussion w/independent historian: Patient Lab Data Attestation: I reviewed the patient's lab results. Labs: Laboratory Results - last 24 hr 05/18/24 09:30 WBC 6.4 RBC 3.28 L Hgb 9.5 L Hct 29.5 L MCV 89.9 MCH 29.0 MCHC 32.2 RDW Std Deviation 51.3 H RDW Coeff of Ghada 15.5 H Plt Count 260 MPV 10.1 Immature Gran % (Auto) 0.200 Neut % (Auto) 58.0 Lymph % (Auto) 31.6 [place] % (Auto) 7.2 Eos % (Auto) 2.7 Baso % (Auto) 0.3 Absolute Neuts (auto) 3.7 Absolute Lymphs (auto) 2.02 Nucleated RBC % 0 Sodium 141 Potassium 3.8 Chloride 110 H Carbon Dioxide 28.0 Anion Gap 3 L BUN 11 Creatinine 0.74 Estim Creat Clear Calc 142.50 Est GFR (MDRD) Af Amer 119 Est GFR (MDRD) Non-Af 99 BUN/Creatinine Ratio 14.9 Glucose 112 H Calcium 8.9 Radiography Diagnostic Testing: Clinical Impression(s) from Imaging Studies Brain CT 05/18/24 09:20 IMPRESSION: Negative Brain CT without contrast. Electronically Signed: Vitaliy Alberto MD at 10:36 EDT Reading Location ID and State: [facility] / [place] Tel , Service support , Discharge Plan Triage Chief Complaint: Headache ED Provider: Trae Kessler Dx/Rx/DC Orders Clinical Impression: Headache Instructions: ED Headache Unspecified Prescriptions: New ysaiojongd-dflpfqeyqtxlz-kblz [Fioricet] 50-300-40 mg capsule 1 cap PO TID PRN (Reason: pain) Qty: 15 0RF No Action duloxetine 30 mg capsule,delayed release(DR/EC) 30 mg PO DAILY Qty: 7 0RF duloxetine 60 mg capsule,delayed release(DR/EC) 60 mg PO DAILY Qty: 30 2RF Rx Instructions: begin after completing one week course of duloxetine 30mg daily duloxetine [Cymbalta] 30 mg capsule,delayed release(DR/EC) 30 mg PO DAILY Qty: 30 1RF metformin 500 mg tablet 500 mg PO DAILY ferrous sulfate [FeroSul] 325 mg (65 mg iron) tablet 325 mg PO Primary Care Provider: Care Physician,No Primary Referrals: NOT,DEFINED [Non-Staff] - Print Language: Hebrew Disposition Disposition: Home, Self Care Discharge Date/Time: 05/18/24 13:23
[2024-05-18 09:50] LABS: Absolute Lymphocyte Count 2.02 X10^3/uL (0.83-4.51); Absolute Neutrophil Count 3.7 X10^3/uL (2.0-7.7); Basophil# 0.02 X10^3/uL; Basophil% 0.3 % (0-1); Eosinophil# 0.17 X10^3/uL; Eosinophils% 2.7 % (0-5); Hematocrit 29.5 % (37-47); Hemoglobin 9.5 g/dL (12.0-15.0); Lymphocyte # 2.02 X10^3/ul (0.83-4.51); Lymphocyte % 31.6 % (19-41); Mean Corp Hgb Conc 32.2 g/dL (32-36); Mean Corpuscular Volume 89.9 fL (81-99); Mean Platelet Vol. 10.1 fl (6.2-12.0); Monocyte# 0.46 X10^3/uL; Monocyte% 7.2 % (0-10); NRBC Flagged by Analyzer 0 % (0-5); Neutrophil # 3.71 X10^3/uL (2.7-7.7); Platelet Count 260 K/mm3 (150-450); RBC Distribution Width CV 15.5 % (11.6-14.6); RBC Distribution Width SD 51.3 fl (35.1-43.9); Red Blood Count 3.28 M/mm3 (4.2-5.4); White Blood Count 6.4 K/mm3 (4.4-11.0)
[2024-05-18 09:55] LABS: Anion Gap 3 (5-15); BUN 11 mg/dL (7-18); BUN/Creat Ratio 14.9 RATIO (10-20); Calcium,Total 8.9 mg/dL (8.5-10.1); Chloride 110 mmol/L (98-107); Creatinine, Serum 0.74 mg/dL (0.55-1.02); EST Glomerular Filtration Rate 99 mL/min (>60); Est Glom Filt Rate - Afr Amer 119 mL/min (>60); Glucose 112 mg/dL (74-106); Potassium 3.8 mmol/L (3.5-5.1); Sodium Level 141 mmol/L (136-145)
[2024-05-18 11:00] VITALS: BP 108/76; PULSE 77
[2024-05-18] MEDS: Ketorolac 30 MG/ML Syringe IV (11:46)
[2024-05-18 13:00] VITALS: BP 132/86; PULSE 78; O2SAT 99
[2024-05-18 13:22] VITALS: BP 127/68; PULSE 77; RESP 16; TEMP 36.6; O2SAT 99
[2024-05-18 13:23] VITALS: BP 127/68; PULSE 77; RESP 16; TEMP 36.6; O2SAT 99
== END 2024-05-18 13:23 | disposition home or self-care (01) ==
PROVIDERS: Emergency Provider Emergency Medicine; Visit Provider Emergency Medicine
DX: R51.9 Headache, unspecified (principal); F17.210 Nicotine dependence, cigarettes, uncomplicated
CPT/HCPCS: 70450; 80048; 85025; 96374; 99282; A4216

== ENCOUNTER 2024-06-16 06:02 | Emergency (ER) | payer MEDICAID, SELFPAY ==
[2024-06-16 06:02] VITALS: BP 139/86
[2024-06-16 06:03] VITALS: PULSE 91; RESP 18; TEMP 35.8; O2SAT 100; BMI 31.8
[2024-06-16 06:29] LABS: Absolute Lymphocyte Count 3.38 X10^3/uL (0.83-4.51); Absolute Neutrophil Count 4.1 X10^3/uL (2.0-7.7); Basophil# 0.04 X10^3/uL; Basophil% 0.5 % (0-1); Eosinophil# 0.18 X10^3/uL; Eosinophils% 2.2 % (0-5); Hemoglobin 9.8 g/dL (12.0-15.0); Lymphocyte # 3.38 X10^3/ul (0.83-4.51); Mean Corp Hgb Conc 31.6 g/dL (32-36); Mean Corpuscular Hgb 26.9 pg (27.0-32.0); Mean Corpuscular Volume 85.2 fL (81-99); Mean Platelet Vol. 10.4 fl (6.2-12.0); Monocyte# 0.54 X10^3/uL; Monocyte% 6.5 % (0-10); NRBC Flagged by Analyzer 0 % (0-5); Neutrophil % 49.7 % (47-70); Platelet Count 257 K/mm3 (150-450); RBC Distribution Width CV 14.6 % (11.6-14.6); RBC Distribution Width SD 45.7 fl (35.1-43.9); Red Blood Count 3.64 M/mm3 (4.2-5.4); White Blood Count 8.3 K/mm3 (4.4-11.0)
--- NOTE | 2024-06-16 06:33 | EX.ED.DYSGE1 ---
HPI History of Present Illness Chief Complaint: General Illness Informant: patient Narrative Narrative: Patient is a 29-year-old female with past medical history of anxiety. She states over the past 1 to 2 weeks she is felt like she has had an uncontrollable appetite despite eating is much as she wants. She states that she always feels warm and sweaty and that she has difficulty sleeping. She states that a few months ago she was seen her family doctor and reported her TSH was abnormal and she was never able to follow back up to confirm whether she truly had hyper or hypothyroidism. The patient states that she has not been able to see a family doctor and with these persistent symptoms and difficulty sleeping she is concerned this may be her thyroid and therefore comes in for evaluation [facility] Medical History Anxiety Paresthesias Cervical radiculopathy Cervicalgia Anxiety Home Medications ?Medication ?Instructions ?Recorded ?Last Taken ?Type metformin 500 mg tablet 500 mg PO DAILY 04/03/24 Unknown History Allergy/AdvReac Type Severity Reaction Status Date / Time acetaminophen (From Vicodin) Allergy Hives Verified 06/16/24 06:06 hydrocodone (From Vicodin) Allergy Hives Verified 06/16/24 06:06 Family History Other Cancer Diabetes Seizures Social History Smoking Status: Current every day smoker tobacco type: cigarettes Tobacco: How many years used: 6 second hand exposure: Yes alcohol intake: current alcohol intake frequency: holidays/special occasions only substance use type: former substance user Date of last use: used some marijuana in the past ROS ROS ED Constitutional Constitutional ED: Denies chills or fever(s) Eyes Eyes: Denies change in vision ENT ENT ED: Denies sore throat Cardiovascular Cardiovascular: Reports racing heartbeat; Denies chest pain or palpitations Respiratory/Chest Respiratory/Chest: Denies cough or dyspnea Gastrointestinal Gastrointestinal: Denies abdominal pain, diarrhea, nausea or vomiting Genitourinary Genitourinary ED: Denies dysuria Musculoskeletal Musculoskeletal: Denies myalgias Integumentary Denies rash Neurologic Neurologic: Denies headache(s) Psychiatric Psychiatric: Reports anxiety Hematologic/Lymphatic Hematologic/Lymphatic: Denies easy bleeding or easy bruising EXAM Physical Exam Const Vital Signs: 06/16/24 06:02 06/16/24 06:03 06/16/24 06:05 Temperature 96.5 F L Temperature Source Temporal Pulse Rate 91 Respiratory Rate 18 Respiratory Effort Normal Blood Pressure 139/86 H Blood Pressure Mean 103 Pulse Ox 100 Positive well nourished and well developed General Appearance ED: well developed; Negative for pallor HEENT Reports moist mucous membranes Eyes PERRL and EOMs intact bilaterally General Eye ED: Negative for scleral icterus Neck supple Neck Narrative: No palpable nodule or goiter noted on the thyroid Chest Wall palpation of chest normal Resp normal respiratory effort and clear to auscultation bilaterally Cardio regular rate and regular rhythm Rate: other Other Details: Heart is regular rate and rhythm without murmurs rubs or gallops Radial and carotid pulses are equal and symmetric GI normal to inspection, nondistended, normoactive bowel sounds, non-tender, non-distended and no masses GI Narrative: No voluntary guarding or rigidity or pulsatile mass Auscultation: normoactive bowel sounds Palpation: soft Extremity normal to inspection Extremity Narrative: No asymmetric edema no pitting edema negative Homans' sign bilaterally Neuro oriented x3, CN's II-XII intact bilaterally and no sensory deficits noted Sensorium / Orientation: alert Motor Exam: strength 5/5 throughout Psych Psych Narrative: Patient has a nervous/anxious affect Mood & Affect: anxious Skin no rashes or lesions noted and no wounds General Skin Exam: Negative for jaundice or pallor MDM MDM MDM Narrative Medical decision making narrative: Patient arrived to the ER hypertensive but otherwise with stable vitals. She had multiple complaints such as palpitations increased appetite difficulty sleeping and feeling overall flushed/warm. There is potential this could be related to hyperthyroidism so therefore TSH was obtained. She has a history of anemia in order to ensure there is no acute blood loss anemia stimuli and her symptoms a CBC was added. In order to ensure that she does not have acute kidney injury hypomagnesemia or hypokalemia as a potential cause a basic metabolic profile was also obtained. Blood work showed anemia with hemoglobin of 9.8 but chart review reveals this is her baseline. Remainder the labs did not reveal any clinically significant findings. Therefore at this time she does not have a cardiac dysrhythmia by exam there is no signs of infection or acute blood loss anemia or acute kidney injury electrolyte abnormality or thyroid dysfunction so there is no need for further intervention and she can follow-up as an outpatient for further testing. History & Record Review Discussion w/independent historian: Patient Lab Data Attestation: I reviewed the patient's lab results. Labs: Laboratory Results - last 24 hr 06/16/24 06:25 WBC 8.3 RBC 3.64 L Hgb 9.8 L Hct 31.0 L MCV 85.2 MCH 26.9 L MCHC 31.6 L RDW Std Deviation 45.7 H RDW Coeff of Ghada 14.6 Plt Count 257 MPV 10.4 Immature Gran % (Auto) 0.100 Neut % (Auto) 49.7 Lymph % (Auto) 41.0 [place] % (Auto) 6.5 Eos % (Auto) 2.2 Baso % (Auto) 0.5 Absolute Neuts (auto) 4.1 Absolute Lymphs (auto) 3.38 Nucleated RBC % 0 Sodium 139 Potassium 3.8 Chloride 108 H Carbon Dioxide 28.0 Anion Gap 3 L BUN 13 Creatinine 0.77 Estim Creat Clear Calc 138.63 Est GFR (MDRD) Af Amer 114 Est GFR (MDRD) Non-Af 94 BUN/Creatinine Ratio 16.9 Glucose 104 Calcium 9.0 Magnesium 2.0 TSH 0.884 Discharge Plan Triage Chief Complaint: General Illness ED Provider: Nelson Ulloa Dx/Rx/DC Orders Clinical Impression: Palpitations, Insomnia, Anxiety Instructions: What Is Insomnia?, ED Hyperthyroidism, ED Palpitations Prescriptions: No Action metformin 500 mg tablet 500 mg PO DAILY Primary Care Provider: Care Physician,No Primary Referrals: Susy Davis MD [Med Staff - Religious Education Coordinator] - Care Physician,No Primary [Primary Care Provider] - Activity Restrictions/Additional Instructions: Please follow-up with a family doctor for further testing but on today's laboratory values your potassium magnesium and thyroid values were within normal limits Print Language: Telugu Disposition Disposition: Home, Self Care
[2024-06-16 06:54] LABS: Anion Gap 3 (5-15); BUN 13 mg/dL (7-18); BUN/Creat Ratio 16.9 RATIO (10-20); Chloride 108 mmol/L (98-107); Creatinine, Serum 0.77 mg/dL (0.55-1.02); EST Glomerular Filtration Rate 94 mL/min (>60); Est Glom Filt Rate - Afr Amer 114 mL/min (>60); Estimated Creatinine Clearance 138.63 ml/min; Glucose 104 mg/dL (74-106); Potassium 3.8 mmol/L (3.5-5.1); Sodium Level 139 mmol/L (136-145); Thyroid Stim Hormone (TSH) 0.884 uIU/mL (0.358-3.740)
== END 2024-06-16 07:25 | disposition home or self-care (01) ==
PROVIDERS: Emergency Provider Emergency Medicine; Visit Provider Emergency Medicine
DX: R63.2 Polyphagia (principal); R00.2 Palpitations; F41.9 Anxiety disorder, unspecified; G47.00 Insomnia, unspecified; F17.210 Nicotine dependence, cigarettes, uncomplicated
CPT/HCPCS: 80048; 83735; 84443; 85025; 99282; A4216

== ENCOUNTER 2024-07-12 05:04 | Emergency (ER) | payer MEDICAID, SELFPAY ==
[2024-07-12 05:05] VITALS: BP 129/82; PULSE 102; RESP 18; TEMP 37.1; O2SAT 99; BMI 31.9
--- NOTE | 2024-07-12 05:51 | EDS_ITS ---
HPI History of Present Illness Chief Complaint: Cold Sx Informant: patient Onset/Context/Timing Onset: Yesterday Context: Sudden Onset Timing: Continuous Quality: Stabbing Location: Throat Worsened by: Movement Relieved by: Nothing Narrative Narrative: Patient presents with sore throat and headache that began yesterday. Patient describes her pain as stabbing. Patient states it is worse with movement. Patient states it radiates into her neck. Patient also admits to an occipital headache. Patient denies any fevers or chills. Patient denies any cough. Patient does admit to some mild pain in her chest. Patient denies any nausea or vomiting. Patient denies any rhinorrhea. [facility] Medical History Anxiety Paresthesias Cervical radiculopathy Cervicalgia Anxiety Home Medications ?Medication ?Instructions ?Recorded ?Last Taken ?Type metformin 500 mg tablet 500 mg PO DAILY 04/03/24 Unknown History amoxicillin 500 mg tablet 500 mg PO TID #30 tabs 07/12/24 Unknown Rx Allergy/AdvReac Type Severity Reaction Status Date / Time acetaminophen (From Vicodin) Allergy Hives Verified 07/12/24 05:04 hydrocodone (From Vicodin) Allergy Hives Verified 07/12/24 05:04 Family History Other Cancer Diabetes Seizures Social History Smoking Status: Former smoker quit date: 05/30/21 Tobacco: How many years used: 6 second hand exposure: Yes alcohol intake: current alcohol intake frequency: holidays/special occasions only substance use type: former substance user Date of last use: used some marijuana in the past ROS ROS ED Constitutional Constitutional ED: Denies chills or fever(s) Eyes Eyes: Denies blurry vision or change in vision ENT ENT ED: Reports sore throat; Denies rhinorrhea Cardiovascular Cardiovascular: Reports chest pain; Denies palpitations Respiratory/Chest Respiratory/Chest: Denies cough or dyspnea Gastrointestinal Gastrointestinal: Denies nausea or vomiting Genitourinary Genitourinary ED: Denies dysuria or hematuria Musculoskeletal Musculoskeletal: Reports neck pain; Denies back pain Integumentary Denies abscess or rash Neurologic Neurologic: Reports headache(s); Denies weakness Allergic/Immunologic Allergic/Immunologic ED: Denies mouth swelling or urticaria EXAM Physical Exam Const Vital Signs: 07/12/24 05:05 07/12/24 05:07 Temperature 98.8 F Temperature Source Oral Pulse Rate 102 H Respiratory Rate 18 Respiratory Effort Normal Non-Labored Respiratory Pattern Normal Blood Pressure 129/82 H Blood Pressure Mean 97 Pulse Ox 99 Oxygen Delivery Method Room Air Positive well nourished and well developed General Appearance ED: well developed and NAD HEENT Reports moist mucous membranes HEENT Narrative: Oropharynx is erythematous. There are no exudates noted. There is some postnasal drainage. Neck no lymphadenopathy, supple and no JVD Resp normal respiratory effort and clear to auscultation bilaterally Cardio regular rate and regular rhythm GI non-tender and non-distended Palpation: soft Neuro oriented x3, CN's II-XII intact bilaterally and no sensory deficits noted Sensorium / Orientation: alert Motor Exam: strength 5/5 throughout Psych mental status grossly normal MDM MDM MDM Narrative Medical decision making narrative: Differential diagnose includes strep pharyngitis, viral pharyngitis, and viral upper respiratory infection. Rapid strep will be obtained to assess for strep pharyngitis. COVID-19, RSV, and influenza PCR will be obtained to assess for viral upper respiratory infection. Lab Data Attestation: I reviewed the patient's lab results. Lab results narrative: Rapid strep was reviewed and was positive. Treatment and Re-Evaluation :: Patient was given a dose of tramadol here. Patient was advised of her findings. Patient was given a dose of amoxicillin here. Patient was given a prescription for amoxicillin. Patient was instructed to follow-up with her primary care physician in 5 to 7 days. Patient was instructed to take Tylenol or ibuprofen as needed for any pain or fever. Patient was instructed to return if worse in any way. Patient understood and was agreeable with the plan. All questions were answered. Discharge Plan Triage Chief Complaint: Cold Sx ED Provider: Abhinav Sofia Dx/Rx/DC Orders Clinical Impression: Acute streptococcal pharyngitis, Fatigue Instructions: ED Pharyngitis, Strep (Confirmed) Prescriptions: New amoxicillin 500 mg tablet 500 mg PO TID Qty: 30 0RF No Action metformin 500 mg tablet 500 mg PO DAILY Primary Care Provider: Care Physician,No Primary Referrals: Abhinav Gilbert MD [Med Staff - Automobile Leasing Supervisor] - 5-7 Days Care Physician,No Primary [Primary Care Provider] - Print Language: Telugu Disposition Disposition: Home, Self Care
[2024-07-12] MEDS: traMADol 50 MG Tablet PO (06:06)
[2024-07-12 07:23] VITALS: BP 110/67; PULSE 81; RESP 16; TEMP 36.6; O2SAT 99
[2024-07-12] MEDS: AMOXICILLIN 500 MG CAPSULE PO (07:23)
== END 2024-07-12 07:25 | disposition home or self-care (01) ==
PROVIDERS: Emergency Provider Emergency Medicine; Visit Provider Emergency Medicine
DX: J02.0 Streptococcal pharyngitis (principal); R53.83 Other fatigue; Z87.891 Personal history of nicotine dependence
CPT/HCPCS: 87631; 87651; 99283

== ENCOUNTER 2024-07-17 19:39 | Emergency (ER) | payer MEDICAID, SELFPAY ==
[2024-07-17 19:39] VITALS: BP 136/85; PULSE 86; RESP 16; TEMP 35.8; O2SAT 99; BMI 32.0
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
[2024-07-17] MEDS: Ibuprofen 600 MG Tablet PO (20:24)
== END 2024-07-17 20:27 | disposition home or self-care (01) ==
PROVIDERS: Emergency Provider Emergency Medicine; Visit Provider Emergency Medicine
DX: T23.021A Burn of unspecified degree of single right finger (nail) except thumb, initial encounter (principal); Z87.891 Personal history of nicotine dependence; X58.XXXA Exposure to other specified factors, initial encounter
CPT/HCPCS: 99282

== ENCOUNTER 2024-08-08 00:09 | Emergency (ER) | payer MEDICAID, SELFPAY ==
[2024-08-08 00:09] VITALS: BP 140/88; PULSE 81; RESP 16; TEMP 36.9; O2SAT 92; BMI 32.1
--- NOTE | 2024-08-08 00:44 | EDS_ITS ---
HPI History of Present Illness Chief Complaint: Chest Other Informant: patient Narrative Narrative: Patient is a 29-year-old female with past medical history of cervical radiculopathy and anxiety. She states over the past 2 to 3 days she has been feeling pain around the left breast. She states is localized around the areola and nipple. She states that there has been no fevers or chills and she denies any skin discoloration. She denies any recent trauma or breast-feeding. She states she is concerned she is developing infection secondary to her pain and therefore comes in for evaluation [facility] Medical History (Updated 08/08/24 @ 01:[address] Nelson Ulloa DO) Anxiety Paresthesias Cervical radiculopathy Cervicalgia Home Medications ?Medication ?Instructions ?Recorded ?Last Taken ?Type metformin 500 mg tablet 500 mg PO DAILY 04/03/24 Unknown History ibuprofen 600 mg tablet 600 mg PO Q6H PRN PRN fever or 07/12/24 Unknown Rx pain #20 TABLETS clindamycin HCl 300 mg capsule 300 mg PO 4X/DAY 7 days #28 caps 08/08/24 Unknown Rx Allergy/AdvReac Type Severity Reaction Status Date / Time acetaminophen (From Vicodin) Allergy Hives Verified 08/08/24 00:10 hydrocodone (From Vicodin) Allergy Hives Verified 08/08/24 00:10 Family History Other Cancer Diabetes Seizures Social History Smoking Status: Former smoker quit date: 05/30/21 Tobacco: How many years used: 6 second hand exposure: Yes alcohol intake: current alcohol intake frequency: holidays/special occasions only substance use type: former substance user Date of last use: used some marijuana in the past ROS ROS ED Constitutional Constitutional ED: Denies chills or fever(s) Eyes Eyes: Denies change in vision ENT ENT ED: Denies sore throat Cardiovascular Cardiovascular: Reports other Details: Negative pleuritic chest pain ; Denies chest pain, palpitations or racing heartbeat Respiratory/Chest Respiratory/Chest: Denies cough or dyspnea Gastrointestinal Gastrointestinal: Denies abdominal pain, diarrhea, nausea or vomiting Genitourinary Genitourinary ED: Denies dysuria Musculoskeletal Musculoskeletal: Reports other Details: Positive left breast pain Integumentary Denies abscess, Abrasions or rash Neurologic Neurologic: Denies headache(s) Hematologic/Lymphatic Hematologic/Lymphatic: Denies easy bleeding or easy bruising EXAM Physical Exam Const Vital Signs: 08/08/24 00:09 Temperature 98.5 F Temperature Source Temporal Pulse Rate 81 Respiratory Rate 16 Blood Pressure 140/88 H Blood Pressure Mean 105 Pulse Ox 92 Oxygen Delivery Method Room Air Positive well nourished and well developed General Appearance ED: well developed HEENT HEENT Narrative: Normocephalic atraumatic Eyes PERRL and EOMs intact bilaterally General Eye ED: Negative for scleral icterus Neck supple Chest Wall Chest Narrative: Left breast is normal in appearance. There is no erythema or warmth or streaking. No masses palpated. No nipple discharge noted. Resp normal respiratory effort and clear to auscultation bilaterally Cardio regular rate and regular rhythm Extremity normal to inspection Neuro oriented x3, CN's II-XII intact bilaterally and no sensory deficits noted Sensorium / Orientation: alert Motor Exam: strength 5/5 throughout Psych mental status grossly normal Skin no rashes or lesions noted Skin Narrative: No erythema or warmth no abrasions or ecchymosis no vesicular or pustule changes MDM MDM MDM Narrative Medical decision making narrative: Patient arrived to the ER with stable vitals and reported 2 to 3 days of left breast pain without trauma. She denies any recent breast-feeding to suggest mastitis. Physical exam does not show overlying soft tissue skin changes to suggest cellulitis or abscess or shingles. There is no nipple discharge noted. No masses palpated to suggest breast cancer or abscess. As the patient has concern for developing infection and has had pain without any type of trauma there is concern for potential underlying breast infection that is not progressed to the surface at this time. Therefore I will place her on clindamycin. Breast ultrasounds are the most sensitive study to check for mass or abscess but that cannot be performed at this time of night. As vitals are stable and there is no obvious physical exam findings to suggest the cause of her pain I will order an outpatient ultrasound. Lungs are clear she is not pleuritic chest pain and therefore I have low concern for pneumonia pneumothorax or pulmonary embolus and do not feel the need for chest x-ray or CTA. A plan of care of infection prophylaxis while awaiting outpatient study was discussed with the patient she is agreeable to it and therefore we discharged home at this time History & Record Review Discussion w/independent historian: Patient Discharge Plan Triage Chief Complaint: Chest Other Other Complaint: Female C/O ED Provider: Nelson Ulloa Dx/Rx/DC Orders Clinical Impression: Pain of left breast, Anxiety, Cervical radiculopathy Instructions: Breast Pain (Mastalgia) Prescriptions: New clindamycin HCl 300 mg capsule 300 mg PO 4X/DAY 7 Days Qty: 28 0RF No Action metformin 500 mg tablet 500 mg PO DAILY ibuprofen 600 mg tablet 600 mg PO Q6H PRN PRN (Reason: fever or pain) Qty: 20 0RF Other Ambulatory Orders: Breast Limited Unilateral (Routine) Facility: [facility] - Location: [facility] Ordered By: Dr. Nelson Ulloa Primary Care Provider: Care Physician,No Primary Referrals: Lesley South MD [Med Staff - Active Staff] - Care Physician,No Primary [Primary Care Provider] - Activity Restrictions/Additional Instructions: Please obtain the outpatient breast ultrasound to look for potential masses or an abscess. Your exam today does not reveal any signs of obvious infection but with your increasing pain take the clindamycin as directed for potential infection that is not reached the external surface yet. Follow-up with [facility] [employer] SET UP OPERATOR for further evaluation and return to the ER should you have any further concern. Print Language: Macanese Disposition Disposition: Home, Self Care Discharge Date/Time: 08/08/24 00:57
[2024-08-08] MEDS: Clindamycin HCl 150 MG Capsule 300 MG PO (00:56)
== END 2024-08-08 00:57 | disposition home or self-care (01) ==
PROVIDERS: Emergency Provider Emergency Medicine; Visit Provider Emergency Medicine
DX: N64.4 Mastodynia (principal); F41.9 Anxiety disorder, unspecified; M54.12 Radiculopathy, cervical region; Z87.891 Personal history of nicotine dependence
CPT/HCPCS: 99283

== ENCOUNTER 2025-01-11 21:47 | Emergency (ER) | payer MEDICAID, SELFPAY ==
[2025-01-11 21:48] VITALS: BP 158/97; PULSE 106; RESP 20; TEMP 36.9; O2SAT 100; BMI 33.3
[2025-01-11 21:52] VITALS: BP 158/97; PULSE 106; RESP 20; TEMP 36.9; O2SAT 100
--- OUTSIDE RECORDS SUMMARY | 2025-01-11 22:20 | XMS RPT_ITS | CCD ---
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 Bacteriuria; Translations: [Bacteriuria] Onset: 01-29-2019 01-29-2019 Episodic Inflammatory diseases of female pelvic organs (9 sources) Vaginitis; Translations: [Acute vaginitis] Onset: 01-29-2019 01-29-2019 Episodic Nonspecific chest pain (5 sources) Atypical chest pain; Translations: [Other chest pain] Onset: 08-25-2023 Episodic Other complications of (7 sources) Maternal tobacco use; Translations: [Smoking (tobacco) complicating , second trimester] Onset: 01-29-2019 01-29-2019 Episodic Other connective tissue disease (1 source) Other symptoms and signs involving the musculoskeletal system; Translations: [Other symptoms and signs involving the musculoskeletal system] Onset: 05-12-2023 Episodic Other connective tissue disease (1 source) Pain in right thigh; Translations: [Pain in right thigh] Onset: 02-13-2023 Episodic Other female genital disorders (3 sources) Vaginal discharge; Translations: [Other specified noninflammatory disorders of vagina] Onset: 03-15-2021 Episodic Other infections; including parasitic (7 sources) History of sexually transmitted disease; Translations: [Personal history of other infectious and parasitic diseases] Onset: 01-29-2019 01-29-2019 Episodic Other lower respiratory disease (3 sources) Cough; Translations: [Cough] Onset: 03-15-2021 Resolved: 04-14-2021 Episodic Other lower respiratory disease (2 sources) Shortness of breath; Translations: [Shortness of breath] Onset: 02-13-2023 Episodic Other lower respiratory disease (1 source) Dyspnea, unspecified; Translations: [Dyspnea, unspecified type] Onset: 12-13-2023 Episodic Other nervous system disorders (1 source) Anesthesia of skin; Translations: [Anesthesia of skin] Onset: 05-12-2023 Episodic Other nervous system disorders (7 sources) Numbness; Translations: [Anesthesia of skin] Onset: 12-09-2023 12-09-2023 Episodic Other nervous system disorders (5 sources) Numbness of face; Translations: [Anesthesia of skin] Onset: 12-09-2023 12-09-2023 Episodic Other nervous system disorders (1 source) Paresthesia of skin; Translations: [Facial paresthesia] Onset: 12-11-2023 Episodic Other screening for suspected conditions (not mental disorders or infectious disease) (1 source) Other specified abnormal findings of blood chemistry; Translations: [Other specified abnormal findings of blood chemistry] Onset: 04-24-2024 Episodic Residual codes; unclassified (7 sources) Gestation period, 14 weeks; Translations: [14 weeks gestation of ] Onset: 01-29-2019 01-29-2019 Episodic Spondylosis; intervertebral disc disorders; other back problems (1 source) Pain in thoracic spine; Translations: [Pain in thoracic spine] Onset: 02-13-2023 Episodic Results Test Name Value Interpretation Reference Range Facility A1Con 08-23-2024 Glucose [Mass/Vol] 134 mg/dL High <=114 [facility] Comment on above: Result Comment: Sarah mated Average Glucose calculated by equation ((28.7xA1C)-46.7) Estimated average glucose (eAG) is a calculated value from Hemoglobin A1C and is senior sales representative of the average blood glucose level in the last 2-3 month period. Normal range: less than 114 mg/dL Performed By: #### A 1C, ANEU, FT3, FT4, CMP, GFR, ADIFF, FERR, TSH, CBC, FE #### [facility] [address], [place] [address] HbA1c (Bld) [Mass fraction] 6.3 % Normal [facility] Comment on above: Result Comment: Inte rpretation of Hgb A1C results: <5.7% Normal 5.7% - 6.4% Prediabetes >6.4% Diabetes Samples from patients with hemolytic anemias or the presence of unstable hemoglobins like HbSS or HbSC will exhibit decreased glycated Hgb due to the shortened life span of the red cells. Results are not reliable in patients with chronic blood loss. Performed By: #### A 1C, ANEU, FT3, FT4, CMP, GFR, ADIFF, FERR, TSH, CBC, FE #### [facility] [address], [place] [address] .Auto Diffon 08-22-2024 Basophil, Absolute 0.0 10 3/mcL Normal 0.0-0.3 [facility] Comment on above: Performed By: #### A 1C, ANEU, FT3, FT4, CMP, GFR, ADIFF, FERR, TSH, CBC, FE #### [facility] [address] [place], [place] [address] Basophils/100 WBC (Bld) 0.5 % Normal 0.0-2.5 [facility] Comment on above: Performed By: #### A 1C, ANEU, FT3, FT4, CMP, GFR, ADIFF, FERR, TSH, CBC, FE #### [address] [address] Eosinophil, Absolute 0.1 10 3/mcL Normal 0.0-0.7 [facility] Comment on above: Performed By: #### A 1C, ANEU, FT3, FT4, CMP, GFR, ADIFF, FERR, TSH, CBC, FE #### [address] [address] Eosinophils/100 WBC (Bld) 2.2 % Normal 0.0-6.0 [facility] Comment on above: Performed By: #### A 1C, ANEU, FT3, FT4, CMP, GFR, ADIFF, FERR, TSH, CBC, FE #### [address] [address] Lymphocyte, Absolute 2.3 10 3/mcL Normal 0.9-4.3 [facility] Comment on above: Performed By: #### A 1C, ANEU, FT3, FT4, CMP, GFR, ADIFF, FERR, TSH, CBC, FE #### [address] [address] Lymphocytes/100 WBC (Bld) 40.9 % High 20.0-40.0 [facility] Comment on above: Performed By: #### A 1C, ANEU, FT3, FT4, CMP, GFR, ADIFF, FERR, TSH, CBC, FE #### [address] [address] Monocyte, Absolute 0.4 10 3/mcL Normal 0.1-1.4 [facility] Comment on above: Performed By: #### A 1C, ANEU, FT3, FT4, CMP, GFR, ADIFF, FERR, TSH, CBC, FE #### [address] [address] Monocytes/100 WBC (Bld) 7.2 % Normal 2.0-13.0 [facility] Comment on above: Performed By: #### A 1C, ANEU, FT3, FT4, CMP, GFR, ADIFF, FERR, TSH, CBC, FE #### [facility] [address], [place] [address] Neutrophils/100 WBC (Bld) 49.2 % Low 50.0-75.0 [facility] Comment on above: Performed By: #### A 1C, ANEU, FT3, FT4, CMP, GFR, ADIFF, FERR, TSH, CBC, FE #### [facility] [address] [place], [place] [address] .GFRon 08-22-2024 GFR Non- 87 ml/min/1.73sqm Normal [facility] Comment on above: Result Comment: GFR Population mean for , Non- Americans Ages 20-29 = 116 mL/min/1.73 sq.m. Ages 30-39 = 107 mL/min/1.73 sq.m. Ages 40-49 = 99 mL/min/1.73 sq.m. Ages 50-59 = 93 mL/min/1.73 sq.m. Ages 60-69 = 85 mL/min/1.73 sq.m. Ages 70+ = 75 mL/min/1.73 sq.m. Chronic Kidney Disease: Less than 60 mL/min/1.73 square meters End Stage Renal Disease: Less than 15 mL/min/1.73 square meters Performed By: #### A 1C, ANEU, FT3, FT4, CMP, GFR, ADIFF, FERR, TSH, CBC, FE #### [facility] [address] [place], [place] [address] GFR 106 ml/min/1.73sqm Normal [facility] Comment on above: Result Comment: GFR Population mean for , Non- Americans Ages 20-29 = 116 mL/min/1.73 sq.m. Ages 30-39 = 107 mL/min/1.73 sq.m. Ages 40-49 = 99 mL/min/1.73 sq.m. Ages 50-59 = 93 mL/min/1.73 sq.m. Ages 60-69 = 85 mL/min/1.73 sq.m. Ages 70+ = 75 mL/min/1.73 sq.m. Chronic Kidney Disease: Less than 60 mL/min/1.73 square meters End Stage Renal Disease: Less than 15 mL/min/1.73 square meters Performed By: #### A 1C, ANEU, FT3, FT4, CMP, GFR, ADIFF, FERR, TSH, CBC, FE #### [facility] [address] [place] [address] .NEUABSon 08-22-2024 Neutrophil, Absolute 2.7 10 3/mcL Normal 2.3-8.1 [facility] Comment on above: Performed By: #### A 1C, ANEU, FT3, FT4, CMP, GFR, ADIFF, FERR, TSH, CBC, FE #### [facility] [address] [place] [address] CBCon 08-22-2024 Erythrocyte distribution width (RBC) [Ratio] 17.9 % High 11.5-15.5 [facility] Comment on above: Performed By: #### A 1C, ANEU, FT3, FT4, CMP, GFR, ADIFF, FERR, TSH, CBC, FE #### [place] [address] Hematocrit (Bld) [Volume fraction] 34.1 % Normal 34.0-46.0 [facility] Comment on above: Performed By: #### A 1C, ANEU, FT3, FT4, CMP, GFR, ADIFF, FERR, TSH, CBC, FE #### [place] [address] Hgb 10.7 G/dL Low 12.0-16.0 [facility] Comment on above: Performed By: #### A 1C, ANEU, FT3, FT4, CMP, GFR, ADIFF, FERR, TSH, CBC, FE #### [place] [address] MCH (RBC) [Entitic mass] 25.3 pg Low 27.0-33.0 [facility] Comment on above: Performed By: #### A 1C, ANEU, FT3, FT4, CMP, GFR, ADIFF, FERR, TSH, CBC, FE #### [facility] [address] [place] [address] MCHC 31.4 G/dL Low 32.0-36.0 [facility] Comment on above: Performed By: #### A 1C, ANEU, FT3, FT4, CMP, GFR, ADIFF, FERR, TSH, CBC, FE #### [facility] [address] [place] [address] MCV (RBC) [Entitic vol] 80.4 fL Normal 80.0-99.0 [facility] Comment on above: Performed By: #### A 1C, ANEU, FT3, FT4, CMP, GFR, ADIFF, FERR, TSH, CBC, FE #### [facility] [address] [place] [address] Platelet 215 10 3/mcL Normal 150-450 [facility] Comment on above: Performed By: #### A 1C, ANEU, FT3, FT4, CMP, GFR, ADIFF, FERR, TSH, CBC, FE #### [facility] [address] [place] [address] Platelet mean volume (Bld) [Entitic vol] 8.8 fL Normal 6.6-10.5 [facility] Comment on above: Performed By: #### A 1C, ANEU, FT3, FT4, CMP, GFR, ADIFF, FERR, TSH, CBC, FE #### [place] [address] RBC 4.24 10 6/mcL Normal 4.10-5.30 [facility] Comment on above: Performed By: #### A 1C, ANEU, FT3, FT4, CMP, GFR, ADIFF, FERR, TSH, CBC, FE #### [place] [address] WBC 5.6 10 3/mcL Normal 4.5-10.8 [facility] Comment on above: Performed By: #### A 1C, ANEU, FT3, FT4, CMP, GFR, ADIFF, FERR, TSH, CBC, FE #### [facility] [address] [place] [address] CMPon 08-22-2024 Albumin Level 3.8 G/dL Normal 3.4-5.0 [facility] Comment on above: Performed By: #### A 1C, ANEU, FT3, FT4, CMP, GFR, ADIFF, FERR, TSH, CBC, FE #### [facility] [address] [place] [address] Albumin/Globulin [Mass ratio] 1.0 {ratio} Low 1.1-1.8 [facility] Comment on above: Performed By: #### A 1C, ANEU, FT3, FT4, CMP, GFR, ADIFF, FERR, TSH, CBC, FE #### [facility] [address] [place] [address] ALP [Catalytic activity/Vol] 76 U/L Normal 45-117 [facility] Comment on above: Performed By: #### A 1C, ANEU, FT3, FT4, CMP, GFR, ADIFF, FERR, TSH, CBC, FE #### [facility] [address] [place] [address] ALT [Catalytic activity/Vol] 28 U/L Normal 12-78 [facility] Comment on above: Performed By: #### A 1C, ANEU, FT3, FT4, CMP, GFR, ADIFF, FERR, TSH, CBC, FE #### [facility] [address] [place] [address] AST [Catalytic activity/Vol] 17 U/L Normal 15-37 [facility] Comment on above: Performed By: #### A 1C, ANEU, FT3, FT4, CMP, GFR, ADIFF, FERR, TSH, CBC, FE #### [facility] [address] [place] [address] Bili Total 0.4 mg/dL Normal 0.2-1.0 [facility] Comment on above: Result Comment: Use of this assay is not recommended for patients undergoing treatment with eltrombopag due to the potential for falsely elevated results. Performed By: #### A 1C, ANEU, FT3, FT4, CMP, GFR, ADIFF, FERR, TSH, CBC, FE #### [facility] [address] [place] [address] BUN/Creatinine Ratio 9.0 ratio Low 10.0-22.0 [facility] Comment on above: Performed By: #### A 1C, ANEU, FT3, FT4, CMP, GFR, ADIFF, FERR, TSH, CBC, FE #### [facility] [address] [place] [address] Calcium [Mass/Vol] 8.6 mg/dL Normal 8.5-10.1 [facility] Comment on above: Performed By: #### A 1C, ANEU, FT3, FT4, CMP, GFR, ADIFF, FERR, TSH, CBC, FE #### [facility] [address] [place] [address] Chloride [Moles/Vol] 106 mmol/L Normal 98-107 [facility] Comment on above: Performed By: #### A 1C, ANEU, FT3, FT4, CMP, GFR, ADIFF, FERR, TSH, CBC, FE #### [facility] [address] [place] [address] CO2 [Moles/Vol] 26 mmol/L Normal 21-32 [facility] Comment on above: Performed By: #### A 1C, ANEU, FT3, FT4, CMP, GFR, ADIFF, FERR, TSH, CBC, FE #### [place] [address] Creatinine [Mass/Vol] 0.78 mg/dL Normal 0.55-1.02 [facility] Comment on above: Result Comment: Test ing performed on Siemens Dimension Edmond analyzer using a modified kinetic Patricio technique. Performed By: #### A 1C, ANEU, FT3, FT4, CMP, GFR, ADIFF, FERR, TSH, CBC, FE #### [facility] [address] [place] [address] Electrolyte Balance 4.0 mEq/L Normal 4.0-15.0 [facility] Comment on above: Performed By: #### A 1C, ANEU, FT3, FT4, CMP, GFR, ADIFF, FERR, TSH, CBC, FE #### [facility] [address] [place], [place] [address] Globulin 3.7 G/dL Normal 2.5-4.6 [facility] Comment on above: Performed By: #### A 1C, ANEU, FT3, FT4, CMP, GFR, ADIFF, FERR, TSH, CBC, FE #### [facility] [address] [place] [id number] Glucose [Mass/Vol] 109 mg/dL High 70-100 [facility] Comment on above: Performed By: #### A 1C, ANEU, FT3, FT4, CMP, GFR, ADIFF, FERR, TSH, CBC, FE #### [facility] [address] [place] [address] Potassium [Moles/Vol] 4.0 mmol/L Normal 3.5-5.1 [facility] Comment on above: Performed By: #### A 1C, ANEU, FT3, FT4, CMP, GFR, ADIFF, FERR, TSH, CBC, FE #### [facility] [address] [place] [id number] Sodium [Moles/Vol] 136 mmol/L Normal 136-145 [facility] Comment on above: Performed By: #### A 1C, ANEU, FT3, FT4, CMP, GFR, ADIFF, FERR, TSH, CBC, FE #### [place] [address] Total Protein 7.5 G/dL Normal 6.0-8.3 [facility] Comment on above: Performed By: #### A 1C, ANEU, FT3, FT4, CMP, GFR, ADIFF, FERR, TSH, CBC, FE #### [facility] [address] [place] [address] Urea nitrogen [Mass/Vol] 7.0 mg/dL Normal 7.0-18.0 [facility] Comment on above: Performed By: #### A 1C, ANEU, FT3, FT4, CMP, GFR, ADIFF, FERR, TSH, CBC, FE #### [place] [address] FEon 08-22-2024 Iron [Mass/Vol] 38 ug/dL Low 50-170 [facility] Comment on above: Performed By: #### A 1C, ANEU, FT3, FT4, CMP, GFR, ADIFF, FERR, TSH, CBC, FE #### [facility] [address] [place] [address] Michael 08-22-2024 Ferritin 3.8 CD:[id number] Low 8.0-252.0 [facility] Comment on above: Performed By: #### A 1C, ANEU, FT3, FT4, CMP, GFR, ADIFF, FERR, TSH, CBC, FE #### [facility] [address] [place] [address] FT3on 08-22-2024 Free T3 [Mass/Vol] 2.66 pg/mL Normal 2.18-3.98 [facility] Comment on above: Performed By: #### A 1C, ANEU, FT3, FT4, CMP, GFR, ADIFF, FERR, TSH, CBC, FE #### [facility] [address] [place] [address] FT4on 08-22-2024 Free T4 [Mass/Vol] 0.99 ng/dL Normal 0.76-1.46 [facility] Comment on above: Performed By: #### A 1C, ANEU, FT3, FT4, CMP, GFR, ADIFF, FERR, TSH, CBC, FE #### [facility] [address] [place] [address] TSHon 08-22-2024 TSH 0.583 mIU/mL Normal 0.358-3.740 [facility] Comment on above: Performed By: #### A 1C, ANEU, FT3, FT4, CMP, GFR, ADIFF, FERR, TSH, CBC, FE #### [facility] [address] [place] [address] ALLIED HEALTHon 08-11-2024 [facility] HNO ID: [id number] Author: TIFFANY GRIMES RT(R) Service: Radiology Author Type: Technologist Type: Allied Health Filed: 08/11/2024 03:38 Note Text: Summary: CT Radiology Service Progress Note DATE OF SERVICE: August 11, 2024 TIME: 3:37 AM PATIENT IDENTITY VERIFICATION COMPLETED USING TWO (2) STANDARD IDENTIFIERS: Name and Date of confirmed by patient verbally. FALL SCREENING: Has the patient had 2 falls in the last year or 1 fall with injury or currently using an Ambulatory Assistive Device (Walker, Cane, Wheelchair, Crutches, etc.)? No PATIENT GENDER DATA: Assigned female at . status: : No status: NO. PATIENT RELEVANT IMPLANT DATA REVIEWED: Not Applicable PATIENT PRESENTS WITH AN IMPLANTABLE OR ATTACHED CLINICAL PROFESSOR: No ALLERGIES: Reviewed and unchanged CONTRAST ALLERGY: NO. EXAM: CT -CONTRAST INDUCED NEPHROPATHY RISK FACTORS: Not applicable CREATININE: Creatinine Date Value Ref Range Status 08/11/2024 0.63 0.51 - 0.95 mg/dL Final Comment: Patients receiving either N-Acetylcysteine (NAC) or Metamizole prior to venipuncture, may have falsely depressed results. 02/05/2024 0.71 0.51 - 0.95 mg/dL Final Comment: Patients receiving either N-Acetylcysteine (NAC) or Metamizole prior to venipuncture, may have falsely depressed results. 12/13/2023 0.78 0.51 - 0.95 mg/dL Final Comment: Patients receiving either N-Acetylcysteine (NAC) or Metamizole prior to venipuncture, may have falsely depressed results. Estimated Glomerular Filtration Rate Date Value Ref Range Status 08/11/2024 123 >=60 mL/min/1.73m? Final Comment: Estimated Glomerular Filtration Rate (eGFR) is calculated using the 2020 CKD-EPI creatinine equation. This equation utilizes serum creatinine, sex, and age as parameters. The creatinine assay has traceable calibration to isotope dilution-mass spectrometry. Refer to KDIGO guidelines for clinical interpretation. In patients with unstable renal function, e.g. those with acute kidney injury, the eGFR may not accurately reflect actual GFR. eGFR- (POCT) Date Value Ref Range Status 12/09/2023 >60 mL/min/1.73m2 Final P.O.C.T. RESULTS: POC done: Yes, See Lab Tab August 11, 2024 TREATMENT: Oral Hydration: ml water. PERIPHERAL IV DATA: Inpatient - refer to [facility] documentation RADIOLOGY DEPARTMENT: CT; Exam(s) Completed: Abdomen/Pelvis and PE Study SIGNATURE: RT Jazmin(R) PATIENT NAME: Lisa Mesa DATE: August 11, 2024 TIME: 3:37 AM Normal [facility] CBC W Auto Differential pane l (Bld)on 08-11-2024 Basophils (Bld) [#/Vol] 0.03 10*3/uL Normal <0.11 [facility] Comment on above: Order Comment: Speci men Type: BLOOD SPECIMEN Ordering Facility: [facility] Address: [address] [place] [address] Performed By: #### 2 432-, , HCG #### [facility] CLIA [id number] [address] [place] [address] [place] Basophils/100 WBC (Bld) 0.5 % Normal [facility] Comment on above: Order Comment: Speci men Type: BLOOD SPECIMEN Ordering Facility: [facility] Address: [address] [place] [id number] Performed By: #### 2 432-2, , HCG #### [facility] CLIA [id number] [address] [place] [address] [place] Differential cell count method Nom (Bld) Auto Normal [facility] Comment on above: Order Comment: Speci men Type: BLOOD SPECIMEN Ordering Facility: [facility] Address: [address] [place] [address] Performed By: #### 2 432-2, , HCG #### [facility] CLIA [id number] [address] [place], [place] [id number] [place] Eosinophils (Bld) [#/Vol] 0.14 10*3/uL Normal <0.46 [facility] Comment on above: Order Comment: Speci men Type: BLOOD SPECIMEN Ordering Facility: [facility] Address: [address] [place] [address] Performed By: #### 2 4320-2, , HCG #### [facility] CLIA [id number] [address] [place] [address] [place] Eosinophils/100 WBC (Bld) 2.2 % Normal [facility] Comment on above: Order Comment: Speci men Type: BLOOD SPECIMEN Ordering Facility: [facility] Address: [address] [place] [address] Performed By: #### 2 2, , HCG #### [facility] CLIA [id number] [address] [place] [address] [place] Erythrocyte distribution width (RBC) [Ratio] 15.6 % High 11.5-15.0 [facility] Comment on above: Order Comment: Speci men Type: BLOOD SPECIMEN Ordering Facility: [facility] Address: [address] [place] [address] Performed By: #### 2 2, , HCG #### [facility] CLIA [id number] [address] [place] [address] [place] Hematocrit (Bld) [Volume fraction] 32.8 % Low 36.0-46.0 [facility] Comment on above: Order Comment: Speci men Type: BLOOD SPECIMEN Ordering Facility: [facility] Address: [address] [place] [address] Performed By: #### 2 4320-2, , HCG #### [facility] CLIA [id number] [address] [place] [address] [place] Hemoglobin (Bld) [Mass/Vol] 10.3 g/dL Low 11.5-15.5 [facility] Comment on above: Order Comment: Speci men Type: BLOOD SPECIMEN Ordering Facility: [facility] Address: [address] [place] [address] Performed By: #### 2 4321-2, , HCG #### [facility] CLIA [id number] [address] [place] [address] [place] Immature granulocytes (Bld) [#/Vol] 10*3/uL Normal <0.10 [facility] Comment on above: Order Comment: Speci men Type: BLOOD SPECIMEN Ordering Facility: [facility] Address: [address] [place] [address] Performed By: #### 2 432-2, , HCG #### [facility] CLIA [id number] [address] [place] [address] [place] Immature granulocytes/100 WBC (Bld) 0.3 % Normal [facility] Comment on above: Order Comment: Speci men Type: BLOOD SPECIMEN Ordering Facility: [facility] Address: [address] [place] [address] Performed By: #### 2 432-2, , HCG #### [facility] CLIA [id number] [address] [place] [address] [place] Lymphocytes (Bld) [#/Vol] 2.36 10*3/uL Normal 1.00-4.00 [facility] Comment on above: Order Comment: Speci men Type: BLOOD SPECIMEN Ordering Facility: [facility] Address: [address] [place] [address] Performed By: #### 2 432-2, , HCG #### [facility] CLIA [id number] [address] [place] [address] [place] Lymphocytes/100 WBC (Bld) 36.6 % Normal [facility] Comment on above: Order Comment: Speci men Type: BLOOD SPECIMEN Ordering Facility: [facility] Address: [address] [place] [address] Performed By: #### 2 432-2, , HCG #### [facility] CLIA [id number] [address] [place] [address] MCH (RBC) [Entitic mass] 25.6 pg Low 26.0-34.0 [facility] Comment on above: Order Comment: Speci men Type: BLOOD SPECIMEN Ordering Facility: [facility] Address: [address] [place] [address] Performed By: #### 2 432-2, , HCG #### [facility] CLIA [id number] [address] [place] [address] [place] MCHC (RBC) [Mass/Vol] 31.4 g/dL Normal 30.5-36.0 [facility] Comment on above: Order Comment: Speci men Type: BLOOD SPECIMEN Ordering Facility: [facility] Address: [address] [place] [address] Performed By: #### 2 43207-31, , HCG #### [facility] CLIA [id number] [address] [place] [address] [place] MCV (RBC) [Entitic vol] 81.4 fL Normal 80.0-100.0 [facility] Comment on above: Order Comment: Speci men Type: BLOOD SPECIMEN Ordering Facility: [facility] Address: [address] [place] [address] Performed By: #### 2 4322, , HCG #### [facility] CLIA [id number] [address] [place] [address] [place] Monocytes (Bld) [#/Vol] 0.46 10*3/uL Normal <0.87 [facility] Comment on above: Order Comment: Speci men Type: BLOOD SPECIMEN Ordering Facility: [facility] Address: [address] [place] [address] Performed By: #### 2 432-2, , HCG #### [facility] CLIA [id number] [address] [place] [id number] [place] Monocytes/100 WBC (Bld) 7.1 % Normal [facility] Comment on above: Order Comment: Speci men Type: BLOOD SPECIMEN Ordering Facility: [facility] Address: [address] [place], [place] [address] Performed By: #### 2 4320-2, , HCG #### [facility] CLIA [id number] [address] [place] [address] [place] Neutrophils (Bld) [#/Vol] 3.44 10*3/uL Normal 1.45-7.50 [facility] Comment on above: Order Comment: Speci men Type: BLOOD SPECIMEN Ordering Facility: [facility] Address: [address] [place] [address] Performed By: #### 2 4320-08, , HCG #### [facility] CLIA [id number] [address] [place] [address] [place] Neutrophils/100 WBC (Bld) 53.3 % Normal [facility] Comment on above: Order Comment: Speci men Type: BLOOD SPECIMEN Ordering Facility: [facility] Address: [address] [place] [address] Performed By: #### 2 2, , HCG #### [facility] CLIA [id number] [address] [place] [address] [place] Nucleated RBC (Bld) [#/Vol] 10*3/uL Normal <0.01 [facility] Comment on above: Order Comment: Speci men Type: BLOOD SPECIMEN Ordering Facility: [facility] Address: [address] [place] [address] Performed By: #### 2 4320-2, , HCG #### [facility] CLIA [id number] [address] [place] [address] [place] Nucleated RBC/100 WBC (Bld) [Ratio] 0.0 /100 WBC Normal [facility] Comment on above: Order Comment: Speci men Type: BLOOD SPECIMEN Ordering Facility: [facility] Address: [address] [place], [place] [address] Performed By: #### 2 4321-2, , HCG #### [facility] CLIA [id number] [address] [place] [address] [place] Platelet mean volume (Bld) [Entitic vol] 10.8 fL Normal 9.0-12.7 [facility] Comment on above: Order Comment: Speci men Type: BLOOD SPECIMEN Ordering Facility: [facility] Address: [address] [place], [place] [address] Performed By: #### 2 432-2, , HCG #### [facility] CLIA [id number] [address] [place], [place] [address] [place] Platelets (Bld) [#/Vol] 220 10*3/uL Normal 150-400 [facility] Comment on above: Order Comment: Speci men Type: BLOOD SPECIMEN Ordering Facility: [facility] Address: [address] [place] [address] Performed By: #### 2 4320-2, , HCG #### [facility] CLIA [id number] [address] [place], [place] [address] [place] RBC (Bld) [#/Vol] 4.03 10*6/uL Normal 3.90-5.20 [facility] Comment on above: Order Comment: Speci men Type: BLOOD SPECIMEN Ordering Facility: [facility] Address: [address] [place] [address] Performed By: #### 2 4321-2, , HCG #### [facility] CLIA [id number] [address] [place] [address] [place] WBC (Bld) [#/Vol] 6.45 10*3/uL Normal 3.70-11.00 [facility] Comment on above: Order Comment: Speci men Type: BLOOD SPECIMEN Ordering Facility: [facility] Address: [address] [place] [address] [place] [id number] Performed By: #### 2 4321-2, 10052-1, [facility] #### [facility] CLIA [id number] [address] [place], [place] [address] [place] CT ABD/PEL W IVCONon 025 CT ABD/PEL W IVCON * * *Final Report* * * DATE OF EXAM: Aug 11 2024 3:50AM [facility] 0530 - CT ABD/PEL W IVCON / PROCEDURE REASON: Diarrhea * * * * Physician Interpretation * * * * EXAMINATION: CHEST CTA (NON GATED) WITH CONTRAST (PULMONARY EMBOLISM PROTOCOL) CT ABDOMEN PELVIS WITH IV CONTRAST Clinical History: Shortness of breath pain diarrhea Technique: Spiral CT acquisition of the chest from the thoracic inlet to the upper abdomen following IV contrast. Axial 1 and 3 mm thick slices plus coronal and sagittal reformatted images. MQ: CTCP_5 Contrast: 100 mL Omnipaque [address] Radiation dose: Integrated Dose-length product (DLP) for this visit = 2063.75 mGy*cm CT Dose Reduction Employed: Automated exposure control(AEC) and iterative recon CTA: Post-processed images (Maximum intensity Projection (MIP), Volume-rendered (VR), or Surface shaded display images (SSD) were created, reviewed and archived. Comparison: Chest CT 12/13/2023, CT abdomen pelvis 03/17/2022 RESULT: Limitations: None. Evaluation for thromboembolic disease: - Right heart chambers: No thromboembolic disease. - Main pulmonary arteries: No thromboembolic disease. - Lobar pulmonary arteries: No thromboembolic disease. - Segmental pulmonary arteries: No thromboembolic disease. - Subsegmental pulmonary arteries: No thromboembolic disease. - Additional pulmonary artery findings: The main pulmonary artery is dilated and can be seen with pulmonary arterial hypertension.. Lines, tubes, and devices: None. Lung parenchyma and airways: No consolidation. No suspicious pulmonary nodule. The central airways are patent. Pleural space: No pleural effusion. No pleural thickening. Lower neck, lymph nodes, and mediastinum: The imaged thyroid gland is normal. No lymphadenopathy in the supraclavicular, axillary, mediastinal, or hilar regions. Heart, pericardium, and thoracic vessels: The thoracic aorta is normal in caliber. The cardiac chambers are normal in size. No coronary artery atherosclerotic calcifications are noted, although the study is not optimized for coronary assessment. No pericardial effusion or thickening. Bones and soft tissues: No destructive bone lesion. Chest wall is unremarkable. abdomen: Normal kidneys adrenal glands spleen pancreas liver stomach small and large bowel appendix urinary bladder. Uterus present. No suspicious osseous lesion. Bilateral subcortical sclerosis of the sacroiliac joints can represent chronic sacroiliitis. Ventral abdominal wall diastasis. Localizer images: No additional findings. IMPRESSION: 1. No CT evidence of pulmonary embolism. 2. No acute abdominal abnormality Material Mover: [facility] Transcribe Date/Time: Aug 11 2024 3:59A Dictated by : MARCELO LAI MD This examination was interpreted and the report reviewed and electronically signed by: MARCELO LAI MD on Aug 11 2024 4:12AM EST [id number] Normal [facility] CTA CHEST (NON GATED) W IVCO N PEon 08-11-2024 CTA CHEST (NON GATED) W IVCON PE * * *Final Report* * * DATE OF EXAM: Aug 11 2024 3:50AM [facility] 0564 - CTA CHEST (NON GATED) W IVCON PE / PROCEDURE REASON: Pulmonary embolism (PE) suspected, high prob * * * * Physician Interpretation * * * * EXAMINATION: CHEST CTA (NON GATED) WITH CONTRAST (PULMONARY EMBOLISM PROTOCOL) CT ABDOMEN PELVIS WITH IV CONTRAST Clinical History: Shortness of breath pain diarrhea Technique: Spiral CT acquisition of the chest from the thoracic inlet to the upper abdomen following IV contrast. Axial 1 and 3 mm thick slices plus coronal and sagittal reformatted images. MQ: CTCP_5 Contrast: 100 mL Omnipaque [address] Radiation dose: Integrated Dose-length product (DLP) for this visit = 2063.75 mGy*cm CT Dose Reduction Employed: Automated exposure control(AEC) and iterative recon CTA: Post-processed images (Maximum intensity Projection (MIP), Volume-rendered (VR), or Surface shaded display images (SSD) were created, reviewed and archived. Comparison: Chest CT 12/13/2023, CT abdomen pelvis 03/17/2022 RESULT: Limitations: None. Evaluation for thromboembolic disease: - Right heart chambers: No thromboembolic disease. - Main pulmonary arteries: No thromboembolic disease. - Lobar pulmonary arteries: No thromboembolic disease. - Segmental pulmonary arteries: No thromboembolic disease. - Subsegmental pulmonary arteries: No thromboembolic disease. - Additional pulmonary artery findings: The main pulmonary artery is dilated and can be seen with pulmonary arterial hypertension.. Lines, tubes, and devices: None. Lung parenchyma and airways: No consolidation. No suspicious pulmonary nodule. The central airways are patent. Pleural space: No pleural effusion. No pleural thickening. Lower neck, lymph nodes, and mediastinum: The imaged thyroid gland is normal. No lymphadenopathy in the supraclavicular, axillary, mediastinal, or hilar regions. Heart, pericardium, and thoracic vessels: The thoracic aorta is normal in caliber. The cardiac chambers are normal in size. No coronary artery atherosclerotic calcifications are noted, although the study is not optimized for coronary assessment. No pericardial effusion or thickening. Bones and soft tissues: No destructive bone lesion. Chest wall is unremarkable. abdomen: Normal kidneys adrenal glands spleen pancreas liver stomach small and large bowel appendix urinary bladder. Uterus present. No suspicious osseous lesion. Bilateral subcortical sclerosis of the sacroiliac joints can represent chronic sacroiliitis. Ventral abdominal wall diastasis. Localizer images: No additional findings. IMPRESSION: 1. No CT evidence of pulmonary embolism. 2. No acute abdominal abnormality Material Mover: [facility] Transcribe Date/Time: Aug 11 2024 3:59A Dictated by : MARCELO LAI MD This examination was interpreted and the report reviewed and electronically signed by: MARCELO LAI MD on Aug 11 2024 4:12AM EST [id number] Normal [facility] Comprehensive metabolic 2000 panelon 08-11-2024 Albumin [Mass/Vol] 3.6 g/dL Normal 3.2-5.0 [facility] Comment on above: Order Comment: Jessica rojo Type: BLOOD SPECIMEN Ordering Facility: [facility] Address: [address] [place] [address] Performed By: #### 2 4321-2, 86863-5, HCG #### [facility] CLIA [id number] [address] [place] [address] [place] ALP [Catalytic activity/Vol] 83 U/L Normal 45-117 [facility] Comment on above: Order Comment: Speci men Type: BLOOD SPECIMEN Ordering Facility: [facility] Address: [address] [place] [address] Performed By: #### 2 4321-2, , HCG #### [facility] CLIA [id number] [address] [place], [place] [address] [place] ALT [Catalytic activity/Vol] 21 U/L Normal 13-61 [facility] Comment on above: Order Comment: Speci men Type: BLOOD SPECIMEN Ordering Facility: [facility] Address: [address] [place] [address] Result Comment: Resu lts may be falsely depressed after the administration of Sulfasalazine and/or Sulfapyridine. Performed By: #### 2 432-2, , HCG #### [facility] CLIA [id number] [address] [place], [place] [address] [place] Anion gap [Moles/Vol] 5 mmol/L Normal 5-16 [facility] Comment on above: Order Comment: Yuriyi men Type: BLOOD SPECIMEN Ordering Facility: [facility] Address: [address] [place] [address] Performed By: #### 2 432-2, , HCG #### [facility] CLIA [id number] [address] [place], [place] [address] [place] AST [Catalytic activity/Vol] 19 U/L Normal 8-34 [facility] Comment on above: Order Comment: Speci men Type: BLOOD SPECIMEN Ordering Facility: [facility] Address: [address] [place] [address] Result Comment: Resu lts may be falsely depressed after the administration of Sulfasalazine and/or Sulfapyridine. Performed By: #### 2 432-2, , HCG #### [facility] CLIA [id number] [address] [place], [place] [address] [place] Bilirubin [Mass/Vol] 0.2 mg/dL Normal 0.2-1.0 [facility] Comment on above: Order Comment: Speci men Type: BLOOD SPECIMEN Ordering Facility: [facility] Address: [address] [id number] Performed By: #### 2 4321-2, , HCG #### [facility] CLIA [id number] [address] [place] [address] [place] Calcium [Mass/Vol] 9.4 mg/dL Normal 8.5-10.5 [facility] Comment on above: Order Comment: Speci men Type: BLOOD SPECIMEN Ordering Facility: [facility] Address: [address] [place] [address] Performed By: #### 2 4321-2, , HCG #### [facility] CLIA [id number] [address] [place], [place] [address] [place] Chloride [Moles/Vol] 106 mmol/L Normal 98-107 [facility] Comment on above: Order Comment: Speci men Type: BLOOD SPECIMEN Ordering Facility: [facility] Address: [address] [place] [address] Performed By: #### 2 432-2, , HCG #### [facility] CLIA [id number] [address] [place], [place] [address] [place] CO2 [Moles/Vol] 25 mmol/L Normal 21-32 [facility] Comment on above: Order Comment: Speci men Type: BLOOD SPECIMEN Ordering Facility: [facility] Address: [address] [place] [address] Performed By: #### 2 432-2, , HCG #### [facility] CLIA [id number] [address] [place] [address] [place] Creatinine [Mass/Vol] 0.63 mg/dL Normal 0.51-0.95 [facility] Comment on above: Order Comment: Speci men Type: BLOOD SPECIMEN Ordering Facility: [facility] Address: [address] [place] [address] Result Comment: Kelsey ents receiving either N-Acetylcysteine (NAC) or Metamizole prior to venipuncture, may have falsely depressed results. Performed By: #### 2 432-2, , HCG #### [facility] CLIA [id number] [address] [place], [place] [address] [place] Creatinine and Glomerular filtration rate.predicted panel (S/P/Bld) 123 mL/min/1.73m??? Normal >=60 [facility] Comment on above: Order Comment: Jessica rojo Type: BLOOD SPECIMEN Ordering Facility: [facility] Address: [address] [place] [address] Result Comment: Sarah mated Glomerular Filtration Rate (eGFR) is calculated using the 2020 CKD-EPI creatinine equation. This equation utilizes serum creatinine, sex, and age as parameters. The creatinine assay has traceable calibration to isotope dilution-mass spectrometry. Refer to KDIGO guidelines for clinical interpretation. In patients with unstable renal function, e.g. those with acute kidney injury, the eGFR may not accurately reflect actual GFR. Performed By: #### 2 4321-2, , HCG #### [facility] CLIA [id number] [address] [place], [place] [address] [place] Glucose [Mass/Vol] 142 mg/dL High 70-100 [facility] Comment on above: Order Comment: Jessica rojo Type: BLOOD SPECIMEN Ordering Facility: [facility] Address: [address] [place] [address] Result Comment: The [place] [employer] (ADA) provides guidance for cutoff values for fasting glucose and random glucose. The ADA defines fasting as no caloric intake for at least 8 hours. Fasting plasma glucose results between 100 to 125 mg/dL indicate increased risk for diabetes (prediabetes). Fasting plasma glucose results greater than or equal to 126 mg/dL meet the criteria for diagnosis of diabetes. In the absence of unequivocal hyperglycemia, results should be confirmed by repeat testing. In a patient with classic symptoms of hyperglycemia or hyperglycemic crisis, random plasma glucose results greater than or equal to 200 mg/dL meet the criteria for diagnosis of diabetes. Reference: Standards of Medical Care in Diabetes 2016, [place] [employer]. Diabetes Care. 2016.39(Suppl 1). Results may be falsely elevated after the administration of Sulfapyridine. Results may be falsely depressed after the administration of Sulfasalazine. Performed By: #### 2 4321-2, , HCG #### [facility] CLIA [id number] [address] [place], [place] [address] [place] Potassium [Moles/Vol] 3.7 mmol/L Normal 3.5-5.1 [facility] Comment on above: Order Comment: Speci men Type: BLOOD SPECIMEN Ordering Facility: [facility] Address: [address] [place] [address] Performed By: #### 2 432-2, , HCG #### [facility] CLIA [id number] [address] [place] [address] [place] Protein [Mass/Vol] 7.2 g/dL Normal 6.0-8.5 [facility] Comment on above: Order Comment: Speci men Type: BLOOD SPECIMEN Ordering Facility: [facility] Address: [address] [place] [address] Performed By: #### 2 4320-2, , HCG #### [facility] CLIA [id number] [address] [place] [address] [place] Sodium [Moles/Vol] 136 mmol/L Normal 136-145 [facility] Comment on above: Order Comment: Speci men Type: BLOOD SPECIMEN Ordering Facility: [facility] Address: [address] [place] [address] Performed By: #### 2 432-2, , HCG #### [facility] CLIA [id number] [address] [place] [address] [place] Urea nitrogen [Mass/Vol] 10 mg/dL Normal 7-26 [facility] Comment on above: Order Comment: Speci men Type: BLOOD SPECIMEN Ordering Facility: [facility] Address: [address] [place] [address] Performed By: #### 2 432-2, , HCG #### [facility] CLIA [id number] [address] [place], [place] [address] [place] ECG COMPLETEon 08-11-2024 ECG COMPLETE Ventricular Rate : 7 8 BPM Atrial Rate : 78 BPM P-R Interval : 198 ms QRS Duration : 84 ms Q-T Interval : 374 ms QTC Calculation(Bazett) : 426 ms Calculated P [place] : 47 degrees Calculated R [place] : 63 degrees Calculated T [place] : 47 degrees Normal sinus rhythm Normal ECG When compared with ECG of 05-Feb-2024 04:52, No significant change was found Confirmed by CECIL LANDEROS MD ([id number]) on 08/12/2024 2:10:44 PM NAME : LISA MESA PID : [id number] : 1995 Gender : Female Race : Other ORD : [id number] Procedure Date : Aug 11 2024 02:58:03 Edit Date : Aug 12 2024 14:10:44 Diagnosis: Normal sinus rhythm Normal ECG When compared with ECG of 05-Feb-2024 04:52, No significant change was found Confirmed by CECIL LANDEROS MD ([id number]) on 08/12/2024 2:10:44 PM Test Reason : STAT Location : 0 : ED [id number] Overread By : CECIL LANDEROS MD Edited By : CECIL LANDEROS MD Referred By : , Acquired by : [id number], [facility] ED PROV NOTEon 08-11-2024 ED PROV NOTE HNO ID: [id number] Author: RUBEN QUINTANA MD Service: ? Author Type: Physician Type: ED Provider Notes Filed: 08/11/2024 04:31 Note Text: ED Provider Note Patient Name: Lisa Mesa : 1995 SERVICE DATE: 08/11/24 History Patient presents with: Dizziness: STATED FOR THE PAST 2-3 DAYS HAS BEEN FEELING FATIGUED, LIGHTHEADED. STATED NO N/V. YES TO DIARRHEA . ALSO LEFT RIB PAIN. Patient is a 29-year-old female presenting for evaluation of dizziness. For the last 2 to 3 days she has been increasingly fatigued and feeling lightheaded. She feels a whooshing in her head when she stands up. She has been nauseous but not had vomiting. She has been having diarrhea. She denies any headache or abdominal pain. She has been having pain over her left side. She also has had pain in her left breast. She was seen at an outside facility and placed on an antibiotic. She has not had any imaging of that breast. She has not yet followed up. She has had about 5 doses of antibiotics. Now she is feeling weak all over. She denies any numbness. 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: Patient PAST MEDICAL HISTORY Diagnosis Date Anemia previous Diabetes mellitus (HCC) 2023 Headaches History of gestational diabetes 2021 History of sexually transmitted disease PAST SURGICAL HISTORY Procedure Laterality Date NONE NONE FAMILY HISTORY Problem Relation Age of Onset Diabetes Mother Cancer Mother Throat Leukemia Mother No Known Problems Father Diabetes Sister other (Epilepsy) Sister Social History Tobacco Use Smoking status: Former Types: Cigarettes Smokeless tobacco: Never Vaping Use Vaping status: Never Used Substance and Sexual Activity Alcohol use: Yes Comment: socially Drug use: Never Sexual activity: Yes Partners: Male ALLERGIES Allergen Reactions Acetaminophen Hives Hydrocodone Hives Hydrocodone-Acetami* Hives Review of Systems All other systems reviewed and are negative. Physical Exam Vitals [08/11/24 0041] BP Pulse Temp Temp src Resp SpO2 Weight Height 138/84 (!) 102 36.8 ?C (98.2 ?F) Oral 17 97 % 104.3 kg (230 lb) 1.803 m (5' 11) Physical Exam HENT: Head: Normocephalic. Eyes: Extraocular Movements: Extraocular movements intact. Cardiovascular: Rate and Rhythm: Normal rate and regular rhythm. Pulmonary: Effort: Pulmonary effort is normal. Breath sounds: Normal breath sounds. Abdominal: Palpations: Abdomen is soft. Tenderness: There is no abdominal tenderness. Musculoskeletal: General: Normal range of motion. Cervical back: Normal range of motion. Skin: General: Skin is warm. Neurological: General: No focal deficit present. Mental Status: She is alert and oriented to person, place, and time. Sensory: No sensory deficit. Motor: No weakness. Diagnostic Testing ED Labs Ordered and Reviewed COMPLETE BLOOD COUNT AND DIFFERENTIAL - Abnormal; Notable for the following components: Result Value Ref Range Hemoglobin 10.3 (*) 11.5 - 15.5 g/dL Hematocrit 32.8 (*) 36.0 - 46.0 % MCH 25.6 (*) 26.0 - 34.0 pg RDW-CV 15.6 (*) 11.5 - 15.0 % All other components within normal limits URINALYSIS, WITH MICROSCOPIC - Abnormal; Notable for the following components: Hemoglobin/Blood,Ur 3+ (*) Negative Leuk Esterase Trace (*) Negative WBC, Urine >25 /HPF (*) 0-5 /HPF RBC, Urine >25 /HPF (*) 0-3 /HPF Calcium Oxalate Crystals Few (*) None Seen /HPF All other components within normal limits COMPREHENSIVE METABOLIC PANEL - Abnormal; Notable for the following components: Glucose 142 (*) 70 - 100 mg/dL All other components within normal limits HCG, QUALITATIVE, URINE - Normal HIGH SENSITIVITY TROPONIN I - Normal LIPASE - Normal EXPANDED STOOL GASTROINTESTINAL PANEL BY PCR - Normal Procedures ED Course / Clinical Impression Clinical Impressions as of 08/11/24 0431 Malaise and fatigue Diarrhea, unspecified type MDM / Disposition / Plan Patient presents for evaluation of generalized weakness and fatigue. I reviewed her chart without any significant contributory information. Laboratory evaluation does not show leukocytosis to suggest significant systemic infection. She has baseline anemic without worsening to suggest hemorrhage. She is currently menstruating. She is not . She has no evidence of liver or renal failure or electrolyte disturbance. Lipase is not elevated to suggest pancreatitis. Troponin is not elevated to suggest ACS or arrhythmia. Urinalysis shows some blood consistent with her current menses. Stool panel is negative. CT of the chest does not show any evidence of pneumonia, pneumothorax, CHF, effusion, soft tissue abscess, pulmonary emboli, dissection, bony abnormality, or any acute process. CT abdomen pelvis does not show any evidence of colitis, diverticulitis, appendicitis, bowel perforation or obstruction. There is no evidence of cholecystitis, pancreatitis, pyelone (more content not included)... Normal [facility] Gastrointestinal pathogens p tyra HUNG+probe (Stl)on 08-11-2024 ADENOVIRUS F 40/41 DNA Not detected Normal Not Detected [facility] Comment on above: Order Comment: Speci men Type: STOOL SPECIMENOrdering Facility: [facility] Address: [address] [place] [address] Performed By: #### 7 9381-0 ####[facility] [id number] [place] [address] [place] ASTROVIRUS RNA Not detected Normal Not Detected [facility] Comment on above: Order Comment: Speci men Type: STOOL SPECIMENOrdering Facility: [facility] Address: [address] [place] [address] Performed By: #### 7 9381-0 ####[facility] [id number] [place] [address] [facility] C. cayetanensis DNA HUNG+probe Ql (Unsp spec) Not detected Normal Not Detected [facility] Comment on above: Order Comment: Speci men Type: STOOL SPECIMENOrdering Facility: [facility] Address: [address] [place] [address] Performed By: #### 7 9381-0 ####[facility] LABORATORYCLIA [id number] [place] [address] [place] Campylobacter sp DNA.diarrheagenic HUNG+probe Ql (Stl) Not detected Normal Not Detected [facility] Comment on above: Order Comment: Speci men Type: STOOL SPECIMENOrdering Facility: [facility] Address: [address] [place] [address] Performed By: #### 7 9381-0 ####[facility] LABORATORYCLIA [id number] [place] [address] [place] Cryptosporidium sp DNA HUNG+probe Ql (Unsp spec) Not detected Normal Not Detected [facility] Comment on above: Order Comment: Speci men Type: STOOL SPECIMENOrdering Facility: [facility] Address: [address] [place] [address] Performed By: #### 7 9381-0 ####[facility] LABORATORYCLIA [id number] [place] [address] [place] E. coli O157:H7 DNA HUNG+probe Ql (Unsp spec) Not applicable Normal Not detected [facility] Comment on above: Order Comment: Speci men Type: STOOL SPECIMENOrdering Facility: [facility] Address: [address] [place] [address] Performed By: #### 7 9381-0 ####[facility] LABORATORYCLIA [id number] [place] [address] [place] E. coli stx1+stx2 genes HUNG+probe Ql (Stl) Not detected Normal Not Detected [facility] Comment on above: Order Comment: Speci men Type: STOOL SPECIMENOrdering Facility: [facility] Address: [address] [place] [address] Performed By: #### 7 9381-0 ####[facility] LABORATORYCLIA [id number] [place] [address] [place] E. histolytica DNA HUNG+probe Ql (Unsp spec) Not detected Normal Not Detected [facility] Comment on above: Order Comment: Speci men Type: STOOL SPECIMENOrdering Facility: [facility] Address: [address] [place] [address] Performed By: #### 7 9381-0 ####[facility] LABORATORYCLIA [id number] [place] [address] [place] ENTEROAGGREGATIVE E. COLI (EAEC) DNA Not detected Normal Not Detected [facility] Comment on above: Order Comment: Speci men Type: STOOL SPECIMENOrdering Facility: [facility] Address: [address] [place] [address] Performed By: #### 7 9381-0 ####[facility] LABORATORYCLIA [id number] [place] [address] [place] ENTEROPATHOGENIC E. COLI (EPEC) DNA Not detected Normal Not detected [facility] Comment on above: Order Comment: Speci men Type: STOOL SPECIMENOrdering Facility: [facility] Address: [address] [place] [address] Performed By: #### 7 9381-0 ####[facility] LABORATORYCLIA [id number] [place] [address] [place] ENTEROTOXIGENIC E. COLI (ETEC) DNA Not detected Normal Not Detected [facility] Comment on above: Order Comment: Speci men Type: STOOL SPECIMENOrdering Facility: [facility] Address: [address] [place] [address] Performed By: #### 7 9381-0 ####[facility] LABORATORYCLIA [id number] [place] [address] [place] G. lamblia DNA HUNG+probe Ql (Unsp spec) Not detected Normal Not Detected [facility] Comment on above: Order Comment: Speci men Type: STOOL SPECIMENOrdering Facility: [facility] Address: [address] [place] [address] Performed By: #### 7 9381-0 ####[facility] LABORATORYCLIA [id number] [place] [address] [place] NOROVIRUS GI/GII RNA Not detected Normal Not Detected [facility] Comment on above: Order Comment: Speci men Type: STOOL SPECIMENOrdering Facility: [facility] Address: [address] [place] [address] Performed By: #### 7 9381-0 ####[facility] LABORATORYCLIA [id number] [place] [address] [place] PLESIOMONAS SHIGELLOIDES DNA Not detected Normal Not Detected [facility] Comment on above: Order Comment: Speci men Type: STOOL SPECIMENOrdering Facility: [facility] Address: [address] [place] [address] Performed By: #### 7 9381-0 ####[facility] LABORATORYCLIA [id number] [place] [address] [place] ROTAVIRUS A RNA Not detected Normal Not Detected [facility] Comment on above: Order Comment: Speci men Type: STOOL SPECIMENOrdering Facility: [facility] Address: [address] [place] [address] Performed By: #### 7 9381-0 ####[facility]ORATORYCLIA [id number] [place] [address] [place] Salmonella sp DNA HUNG+probe Ql (Unsp spec) Not detected Normal Not Detected [facility] Comment on above: Order Comment: Speci men Type: STOOL SPECIMENOrdering Facility: [facility] Address: [address] [place] [address] Performed By: #### 7 9381-0 ####[facility] LABORATORYCLIA [id number] [place] [address] [place] SAPOVIRUS (GENOGROUPS I, II, IV, V) RNA Not detected Normal Not Detected [facility] Comment on above: Order Comment: Speci men Type: STOOL SPECIMENOrdering Facility: [facility] Address: [address] [place] [address] Performed By: #### 7 9381-0 ####[facility]ORATORYCLIA [id number] [place] [address] [place] Shigella species+EIEC invasion plasmid antigen H ipaH gene HUNG+probe Ql (Stl) Not detected Normal Not Detected [facility] Comment on above: Order Comment: Speci men Type: STOOL SPECIMENOrdering Facility: [facility] Address: [address] [place] [address] Performed By: #### 7 9381-0 ####[facility] LABORATORYCLIA [id number] [place] [address] [place] V. cholerae DNA HUNG+probe Ql (Unsp spec) Not detected Normal Not Detected [facility] Comment on above: Order Comment: Speci men Type: STOOL SPECIMENOrdering Facility: [facility] Address: [address] [place] [address] Performed By: #### 7 9381-0 ####[facility]ORATORYCLIA [id number] [place] [address] [place] Vibrio sp DNA HUNG+probe Nom (Unsp spec) Not detected Normal Not Detected [facility] Comment on above: Order Comment: Speci men Type: STOOL SPECIMENOrdering Facility: [facility] Address: [address] [place] [address] Performed By: #### 7 9381-0 ####[facility]ORATORYCLIA [id number] [place] [address] [place] Yersinia sp DNA HUNG+probe Nom (Unsp spec) Not detected Normal Not Detected [facility] Comment on above: Order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 L100.0100, L500.2500, L501.5200 ####[facility] [address] [place], [address] Eosinophils/100 WBC (Bld) 2.2 % Normal 0-5 [facility] Comment on above: Performed By: #### L 501.9520, L100.0100, L500.2500, L501.5200 ####[facility] [address] [place], [address] Erythrocyte distribution width (RBC) [Ratio] 14.6 % Normal 11.6-14.6 [facility] Comment on above: Performed By: #### L 501.9520, L100.0100, L500.2500, L501.5200 ####[facility] [address] [place], [address] Hematocrit (Bld) [Volume fraction] 31.0 % Low 37-47 [facility] Comment on above: Performed By: #### L 501.9520, L100.0100, L500.2500, L501.5200 ####[facility] [address] [place], [address] Hemoglobin (Bld) [Mass/Vol] 9.8 g/dL Low 12.0-15.0 [facility] Comment on above: Performed By: #### L 501.9520, L100.0100, L500.2500, L501.5200 ####[facility] [address] [place], [address] IG% 0.100 Normal 0.0-0.9 [facility] Comment on above: Result Comment: IG% - Immature Granulocytes (promyelocytes, myelocytes and metamyelocytes) > 1% indicates that a LEFT SHIFT is Present. Performed By: #### L 501.9520, L100.0100, L500.2500, L501.5200 ####[facility] [address] [place], [address] Lymphocytes/100 WBC (Bld) 41.0 % Normal 19-41 [facility] Comment on above: Performed By: #### L 501.9520, L100.0100, L500.2500, L501.5200 ####[facility] [address] [place], [address] MCH (RBC) [Entitic mass] 26.9 pg Low 27.0-32.0 [facility] Comment on above: Performed By: #### L 501.9520, L100.0100, L500.2500, L501.5200 ####[facility] [address] [place], [address] MCHC (RBC) [Mass/Vol] 31.6 g/dL Low 32-36 [facility] Comment on above: Performed By: #### L 501.9520, L100.0100, L500.2500, L501.5200 ####[facility] [address] [place], [address] MCV (RBC) [Entitic vol] 85.2 fL Normal 81-99 [facility] Comment on above: Performed By: #### L 501.9520, L100.0100, L500.2500, L501.5200 ####[facility] [address] [place], [address] Monocytes/100 WBC (Bld) 6.5 % Normal 0-10 [facility] Comment on above: Performed By: #### L 501.9520, L100.0100, L500.2500, L501.5200 ####[facility] [address] [place], [address] Neutrophils/100 WBC (Bld) 49.7 % Normal 47-70 [facility] Comment on above: Performed By: #### L 501.9520, L100.0100, L500.2500, L501.5200 ####[facility] [address] [place], [address] Nucleated RBC (Bld) [#/Vol] 0 10*3/uL Normal 0-5 [facility] Comment on above: Performed By: #### L 501.9520, L100.0100, L500.2500, L501.5200 ####[facility] [address] [place], [address] Platelet mean volume (Bld) [Entitic vol] 10.4 fL Normal 6.2-12.0 [facility] Comment on above: Performed By: #### L 501.9520, L100.0100, L500.2500, L501.5200 ####[facility] [address] [place], [address] Platelets (Bld) [#/Vol] 257 10*3/uL Normal 150-450 [facility] Comment on above: Performed By: #### L 501.9520, L100.0100, L500.2500, L501.5200 ####[facility] [address] [place], [address] RBC (Bld) [#/Vol] 3.64 10*6/uL Low 4.2-5.4 [facility] Comment on above: Performed By: #### L 501.9520, L100.0100, L500.2500, L501.5200 ####[facility] [address] [place], [address] RDW SD 45.7 fl High 35.1-43.9 [facility] Comment on above: Performed By: #### L 501.9520, L100.0100, L500.2500, L501.5200 ####[facility] [address] [place], [address] WBC (Bld) [#/Vol] 8.3 10*3/uL Normal 4.4-11.0 [facility] Comment on above: Performed By: #### L 501.9520, L100.0100, L500.2500, L501.5200 ####[facility] [address] [place], [address] Emergency Department Summary on 06-16-2024 Emergency Department Summary [facility] Medical Records Department [address] [place] [address] Emergency Department Summary 06/16/24 MR#: [id number] Acct: [id number] Name: LISA MESA Rep #: [id number] : 1995 29 From: Nelson Ulloa DO PCP: Care Physician,No Primary Status:REG ER Location: ED HPI History of Present Illness Chief Complaint: General Illness Informant: patient Narrative Narrative: Patient is a 29-year-old female with past medical history of anxiety. She states over the past 1 to 2 weeks she is felt like she has had an uncontrollable appetite despite eating is much as she wants. She states that she always feels warm and sweaty and that she has difficulty sleeping. She states that a few months ago she was seen her family doctor and reported her TSH was abnormal and she was never able to follow back up to confirm whether she truly had hyper or hypothyroidism. The patient states that she has not been able to see a family doctor and with these persistent symptoms and difficulty sleeping she is concerned this may be her thyroid and therefore comes in for evaluation [facility] Medical History Anxiety Paresthesias Cervical radiculopathy Cervicalgia Anxiety Home Medications ???Medication ???Instructions ???Recorded ???Last Taken ???Type metformin 500 mg tablet 500 mg PO DAILY 04/03/24 Unknown History Allergy/AdvReac Type Severity Reaction Status Date / Time acetaminophen (From Vicodin) Allergy Hives Verified 06/16/24 06:06 hydrocodone (From Vicodin) Allergy Hives Verified 06/16/24 06:06 Family History Other Cancer Diabetes Seizures Social History Smoking Status: Current every day smoker tobacco type: cigarettes Tobacco: How many years used: 6 second hand exposure: Yes alcohol intake: current alcohol intake frequency: holidays/special occasions only substance use type: former substance user Date of last use: used some marijuana in the past ROS ROS ED Constitutional Constitutional ED: Denies chills or fever(s) Eyes Eyes: Denies change in vision ENT ENT ED: Denies sore throat Cardiovascular Cardiovascular: Reports racing heartbeat; Denies chest pain or palpitations Respiratory/Chest Respiratory/Chest: Denies cough or dyspnea Gastrointestinal Gastrointestinal: Denies abdominal pain, diarrhea, nausea or vomiting Genitourinary Genitourinary ED: Denies dysuria Musculoskeletal Musculoskeletal: Denies myalgias Integumentary Denies rash Neurologic Neurologic: Denies headache(s) Psychiatric Psychiatric: Reports anxiety Hematologic/Lymphatic Hematologic/Lymphatic: Denies easy bleeding or easy bruising EXAM Physical Exam Const Vital Signs: 06/16/24 06:02 06/16/24 06:03 06/16/24 06:05 Temperature 96.5 F L Temperature Source Temporal Pulse Rate 91 Respiratory Rate 18 Respiratory Effort Normal Blood Pressure 139/86 H Blood Pressure Mean 103 Pulse Ox 100 Positive well nourished and well developed General Appearance ED: well developed; Negative for pallor HEENT Reports moist mucous membranes Eyes PERRL and EOMs intact bilaterally General Eye ED: Negative for scleral icterus Neck supple Neck Narrative: No palpable nodule or goiter noted on the thyroid Chest Wall palpation of chest normal Resp normal respiratory effort and clear to auscultation bilaterally Cardio regular rate and regular rhythm Rate: other Other Details: Heart is regular rate and rhythm without murmurs rubs or gallops Radial and carotid pulses are equal and symmetric GI normal to inspection, nondistended, normoactive bowel sounds, non-tender, non-distended and no masses GI Narrative: No voluntary guarding or rigidity or pulsatile mass Auscultation: normoactive bowel sounds Palpation: soft Extremity normal to inspection Extremity Narrative: No asymmetric edema no pitting edema negative Homans' sign bilaterally Neuro oriented x3, CN's II-XII intact bilaterally and no sensory deficits noted Sensorium / Orientation: alert Motor Exam: strength 5/5 throughout Psych Psych Narrative: Patient has a nervous/anxious affect Mood Affect: anxious Skin no rashes or lesions noted and no wounds General Skin Exam: Negative for jaundice or pallor MDM MDM MDM Narrative Medical decision making narrative: Patient arrived to the ER hypertensive but otherwise with stable vitals. She had multiple complaints such as palpitations increased appetite difficulty sleeping and feeling overall flushed/warm. There is potential this could be related to hyperthyroidism so therefore TSH was obtained. She has a history of anemia in order to ensure (more content not included)... Normal [facility] Magnesiumon 06-16-2024 Magnesium [Mass/Vol] 2.0 mg/dL Normal 1.6-2.6 [facility] Comment on above: Performed By: #### L 501.9520, L100.0100, L500.2500, L501.5200 ####[facility] [address] [place], [address] Thyroid Stim Hormone (TSH)on 06-16-2024 TSH 0.884 uIU/mL Normal 0.358-3.740 [facility] Comment on above: Performed By: #### L 501.9520, L100.0100, L500.2500, L501.5200 ####[facility] [address], [address] Basic Metabolic Profile (BMP )on 05-18-2024 BUN/CRE 14.9 RATIO Normal 05-18 [facility] Comment on above: Performed By: #### L 100.0100, L500.2500 ####[facility] [address], [address] CA,Total 8.9 mg/dL Normal 8.5-10.1 [facility] Comment on above: Performed By: #### L 100.0100, L500.2500 ####[facility] [address] [place], [address] Chloride [Moles/Vol] 110 mmol/L High 98-107 [facility] Comment on above: Performed By: #### L 100.0100, L500.2500 ####[facility] [address] [place], [address] CO2 [Moles/Vol] 28.0 mmol/L Normal 21.0-32.0 [facility] Comment on above: Performed By: #### L 100.0100, L500.2500 ####[facility] [address] [place], [address] Creatinine [Mass/Vol] 0.74 mg/dL Normal 0.55-1.02 [facility] Comment on above: Result Comment: The validity of the calculated GFR GFRAA in patients over 70 years has not been determined. Clinical correlation is essential. Performed By: #### L 100.0100, L500.2500 ####[facility] [address] [place], [address] ECRCL 142.50 ml/min Normal [facility] Comment on above: Performed By: #### L 100.0100, L500.2500 ####[facility] [address] [place], [address] EST GFR - AA 119 mL/min Normal >60 [facility] Comment on above: Result Comment: Afri can [place] GFR Calc Performed By: #### L 100.0100, L500.2500 ####[facility] [address] [place], [address] GAP 3 Low 5-15 [facility] Comment on above: Performed By: #### L 100.0100, L500.2500 ####[facility] [address] [place], [address] GFR/1.73 sq M.predicted among non-blacks MDRD (S/P/Bld) [Vol rate/Area] 99 mL/min/{1.73_m2} Normal >60 [facility] Comment on above: Result Comment: Non- GFR Calc Performed By: #### L 100.0100, L500.2500 ####[facility] [address] [place], [address] Glucose [Mass/Vol] 112 mg/dL High 74-106 [facility] Comment on above: Result Comment: Fast ing Glucose result from 100 to 125 mg/dL suggests IMPAIRED HOMEOSTASIS per A.D.A. criteria. Performed By: #### L 100.0100, L500.2500 ####[facility] [address] [place], [address] Potassium [Moles/Vol] 3.8 mmol/L Normal 3.5-5.1 [facility] Comment on above: Performed By: #### L 100.0100, L500.2500 ####[facility] [address] [place], [address] Sodium [Moles/Vol] 141 mmol/L Normal 136-145 [facility] Comment on above: Performed By: #### L 100.0100, L500.2500 ####[facility] [address] [place], [address] Urea nitrogen [Mass/Vol] 11 mg/dL Normal 7-18 [facility] Comment on above: Performed By: #### L 100.0100, L500.2500 ####[facility] [address] [place], [address] Brain/Head without Contrasto n 05-18-2024 Brain/Head without Contrast [facility] Imaging Services [address] [place] [address] Brain/Head without Contrast MR#: [id number] Acct: [id number] Name: LISA MESA Rep #: [id number] : 1995 F 29 From: Vitaliy Talley PCP: Care Physician,No Primary Status: REG ER Study: Brain/Head without Contrast Date of Exam: 04/30 Exam# [id number] Ordering Dr: Trae Kessler DO [id number] INDICATION: headache EXAMINATION: CT BRAIN - CT Head or Brain W/O Contrast Injection TECHNIQUE: Multiple axial images were obtained of the head without intravenous contrast. The protocol utilizes one or more of the following dose reduction techniques: automated exposure control, adjustment of mA and/or kV according to patient size,and/or use of iterative reconstruction technique. IV Contrast dosage and agent: None. RADIATION DOSAGE (If Supplied By Facility): CTDIvol = ( 44.99 ) mGy, DLP = ( 832.67 ) mGycm COMPARISON: No relevant prior comparison study available FINDINGS: BRAIN PARENCHYMA: No intra- or extra-axial hemorrhage. No evidence of acute infarct. No intracranial mass or mass effect. There is preservation of the medina/white matter interface. Posterior fossa structures are unremarkable. CSF SPACES: Appropriate for age. No hydrocephalus. Basal cisterns are patent. CALVARIUM, SKULL BASE, PARANASAL SINUSES AND MASTOID AIR CELLS: Clear. No discrete lytic or blastic abnormalities. ORBITS: Both globes, extraocular muscles, optic nerves and retrobulbar fat appear unremarkable. CT/Brain/Head without Contrast IMPRESSION: Negative Brain CT without contrast. Electronically Signed: Vitaliy Alberto MD at 10:36 EDT , CC: Dr. Trae Kessler DO; No Primary Care Physician Material Mover: Signed Normal [facility] CBC W/Diff, Automatedon 10-2 0-2023 Absolute Lymph 2.02 X10 3/uL Normal 0.83-4.51 [facility] Comment on above: Performed By: #### L 100.0100, L500.2500 ####[facility] [address] [place], [address] Absolute Neut 3.7 X10 3/uL Normal 2.0-7.7 [facility] Comment on above: Performed By: #### L 100.0100, L500.2500 ####[facility] [address] [place], [address] Basophils/100 WBC (Bld) 0.3 % Normal 0-1 [facility] Comment on above: Performed By: #### L 100.0100, L500.2500 ####[facility] [address] [place], [address] Eosinophils/100 WBC (Bld) 2.7 % Normal 0-5 [facility] Comment on above: Performed By: #### L 100.0100, L500.2500 ####[facility] [address] [place], [address] Erythrocyte distribution width (RBC) [Ratio] 15.5 % High 11.6-14.6 [facility] Comment on above: Performed By: #### L 100.0100, L500.2500 ####[facility] [address] [place], [address] Hematocrit (Bld) [Volume fraction] 29.5 % Low 37-47 [facility] Comment on above: Performed By: #### L 100.0100, L500.2500 ####[facility] [address] [place], [address] Hemoglobin (Bld) [Mass/Vol] 9.5 g/dL Low 12.0-15.0 [facility] Comment on above: Performed By: #### L 100.0100, L500.2500 ####[facility] [address] [place], [address] IG% 0.200 Normal 0.0-0.9 [facility] Comment on above: Result Comment: IG% - Immature Granulocytes (promyelocytes, myelocytes and metamyelocytes) > 1% indicates that a LEFT SHIFT is Present. Performed By: #### L 100.0100, L500.2500 ####[facility] [address] [place], [address] Lymphocytes/100 WBC (Bld) 31.6 % Normal 19-41 [facility] Comment on above: Performed By: #### L 100.0100, L500.2500 ####[facility] [address] [place], [address] MCH (RBC) [Entitic mass] 29.0 pg Normal 27.0-32.0 [facility] Comment on above: Performed By: #### L 100.0100, L500.2500 ####[facility] [address] [place], [address] MCHC (RBC) [Mass/Vol] 32.2 g/dL Normal 32-36 [facility] Comment on above: Performed By: #### L 100.0100, L500.2500 ####[facility] [address] [place], [address] MCV (RBC) [Entitic vol] 89.9 fL Normal 81-99 [facility] Comment on above: Performed By: #### L 100.0100, L500.2500 ####[facility] [address] [place], [address] Monocytes/100 WBC (Bld) 7.2 % Normal 0-10 [facility] Comment on above: Performed By: #### L 100.0100, L500.2500 ####[facility] [address] [place], [address] Neutrophils/100 WBC (Bld) 58.0 % Normal 47-70 [facility] Comment on above: Performed By: #### L 100.0100, L500.2500 ####[facility] [address] [place], [address] Nucleated RBC (Bld) [#/Vol] 0 10*3/uL Normal 0-5 [facility] Comment on above: Performed By: #### L 100.0100, L500.2500 ####[facility] [address] [place], [address] Platelet mean volume (Bld) [Entitic vol] 10.1 fL Normal 6.2-12.0 [facility] Comment on above: Performed By: #### L 100.0100, L500.2500 ####[facility] [address] [place], [address] Platelets (Bld) [#/Vol] 260 10*3/uL Normal 150-450 [facility] Comment on above: Performed By: #### L 100.0100, L500.2500 ####[facility] [address] [place], [address] RBC (Bld) [#/Vol] 3.28 10*6/uL Low 4.2-5.4 [facility] Comment on above: Performed By: #### L 100.0100, L500.2500 ####[facility] [address] [place], [address] RDW SD 51.3 fl High 35.1-43.9 [facility] Comment on above: Performed By: #### L 100.0100, L500.2500 ####[facility] [address] [place], [address] WBC (Bld) [#/Vol] 6.4 10*3/uL Normal 4.4-11.0 [facility] Comment on above: Performed By: #### L 100.0100, L500.2500 ####[facility] [address] [place], [address] Emergency Department Summary on 05-18-2024 Emergency Department Summary [facility] Medical Records Department [address] [place] [address] Emergency Department Summary 05/18/24 MR#: [id number] Acct: [id number] Name: LISA MESA Rep #: [id number] : 1995 29 From: Trae Kessler DO PCP: Care Physician,No Primary Status:DEP ER Location: ED HPI History of Present Illness Chief Complaint: Headache Informant: patient Narrative Narrative: 29-year-old female presenting to the emergency room with headache. Patient states for the past week she has had a frontal headache intermittently. She states she takes ibuprofen and gets better but then it comes back. She states that has been more constant this morning. She states that she did drink alcohol last night which probably did not help. She denies any rashes or fever. She denies any nasal congestion earache. She notes that she had a miscarriage and D C in the preceding months. She states that she is not ever been diagnosed with migraines. She denies any neck pain. She denies any visual changes arm or leg symptoms. Headache is not positional in nature. [facility] Medical History Anxiety Paresthesias Cervical radiculopathy Cervicalgia Anxiety Home Medications ???Medication ???Instructions ???Recorded ???Last Taken ???Type duloxetine 30 mg capsule,delayed 30 mg PO DAILY #30 caps 06/01/21 Unknown Rx release (Cymbalta) duloxetine 30 mg capsule,delayed 30 mg PO DAILY #7 caps 06/09/21 Unknown Rx release duloxetine 60 mg capsule,delayed 60 mg PO DAILY #30 caps 06/09/21 Unknown Rx release ferrous sulfate 325 mg (65 mg 325 mg PO 04/03/24 Unknown History iron) tablet (FeroSul) metformin 500 mg tablet 500 mg PO DAILY 04/03/24 Unknown History butalbital-acetaminoph en-caffeine 1 cap PO TID PRN pain #15 caps 05/18/24 Unknown Rx 50 mg-300 mg-40 mg capsule (Fioricet) Allergy/AdvReac Type Severity Reaction Status Date / Time acetaminophen (From Vicodin) Allergy Hives Verified 05/18/24 09:02 hydrocodone (From Vicodin) Allergy Hives Verified 05/18/24 09:02 Family History Other Cancer Diabetes Seizures Social History Smoking Status: Current every day smoker tobacco type: cigarettes Tobacco: How many years used: 6 second hand exposure: Yes alcohol intake: current alcohol intake frequency: holidays/special occasions only substance use type: former substance user Date of last use: used some marijuana in the past ROS ROS ED Constitutional Constitutional ED: Denies chills, fever(s) or weight loss Eyes Eyes: Denies blurry vision, change in vision or diplopia ENT ENT ED: Denies ear pain, rhinorrhea or sore throat Cardiovascular Cardiovascular: Denies chest pain, orthopnea, palpitations or racing heartbeat Respiratory/Chest Respiratory/Chest: Denies cough, dyspnea or orthopnea Gastrointestinal Gastrointestinal: Denies abdominal pain, diarrhea, nausea or vomiting Genitourinary Genitourinary ED: Denies dysuria, hematuria or urinary frequency Musculoskeletal Musculoskeletal: Denies arthralgias, myalgias or neck pain Integumentary Denies abscess or rash Neurologic Neurologic: Reports headache(s); Denies weakness Psychiatric Psychiatric: Denies anxiety, depression, suicidal ideation or suicidal thoughts Endocrine Endocrinology: Denies polydipsia, polyphagia or polyuria Allergic/Immunologic Allergic/Immunologic ED: Denies mouth swelling, tongue swelling or urticaria EXAM Physical Exam Const Vital Signs: 05/18/24 09:00 05/18/24 11:00 05/18/24 13:00 Temperature 96.9 F L Temperature Source Temporal Pulse Rate 87 77 78 Respiratory Rate 18 Blood Pressure 142/91 H 108/76 132/86 H Blood Pressure Mean 108 86 101 Pulse Ox 100 99 Oxygen Delivery Method Room Air 05/18/24 13:22 05/18/24 13:23 Temperature 97.8 F 97.8 F Temperature Source Pulse Rate 77 77 Respiratory Rate 16 16 Blood Pressure 127/68 H 127/68 H Blood Pressure Mean 87 87 Pulse Ox 99 99 Oxygen Delivery Method Positive well nourished and well developed General Appearance ED: well developed HEENT Reports normocephalic, head/scalp atraumatic and moist mucous membranes Eyes PERRL and EOMs intact bilaterally Eyes Narrative: No photophobia. Normal consensual reflex. No conjunctival injection. No ocular pain with movements Neck no lymphadenopathy, supple and no JVD Resp normal respiratory effort and clear to auscultation bilaterally Cardio regular rate, regular rhythm and no murmurs GI normal to inspection, nondistended, normoactive bowel sounds and non-tender Palpation: soft Back/Spine no CVA tenderness and normal ROM Ext (more content not included)... Normal [facility] Basic Metabolic Profile (BMP )on 05-08-2024 BUN/CRE 17.9 RATIO Normal - [facility] Comment on above: Performed By: #### L 300.8000, L501.5200, L500.2500 #### [facility] [address] [place], [address] CA,Total 8.6 mg/dL Normal 8.5-10.1 [facility] Comment on above: Performed By: #### L 300.8000, L501.5200, L500.2500 #### [facility] [address] [place], [address] Chloride [Moles/Vol] 106 mmol/L Normal 98-107 [facility] Comment on above: Performed By: #### L 300.8000, L501.5200, L500.2500 #### [facility] [address] [place], [address] CO2 [Moles/Vol] 30.0 mmol/L Normal 21.0-32.0 [facility] Comment on above: Performed By: #### L 300.8000, L501.5200, L500.2500 #### [facility] [address] [place], [address] Creatinine [Mass/Vol] 0.78 mg/dL Normal 0.55-1.02 [facility] Comment on above: Result Comment: The validity of the calculated GFR GFRAA in patients over 70 years has not been determined. Clinical correlation is essential. Performed By: #### L 300.8000, L501.5200, L500.2500 #### [facility] [address] [place], [address] ECRCL 135.58 ml/min Normal [facility] Comment on above: Performed By: #### L 300.8000, L501.5200, L500.2500 #### [facility] [address] [place], [address] EST GFR - AA 112 mL/min Normal >60 [facility] Comment on above: Result Comment: Afri can [place] GFR Calc Performed By: #### L 300.8000, L501.5200, L500.2500 #### [facility] [address] [place], [address] GAP 2 Low 5-15 [facility] Comment on above: Performed By: #### L 300.8000, L501.5200, L500.2500 #### [facility] [address] [place], [address] GFR/1.73 sq M.predicted among non-blacks MDRD (S/P/Bld) [Vol rate/Area] 92 mL/min/{1.73_m2} Normal >60 [facility] Comment on above: Result Comment: Non- GFR Calc Performed By: #### L 300.8000, L501.5200, L500.2500 #### [facility] [address] [place], [address] Glucose [Mass/Vol] 114 mg/dL High 74-106 [facility] Comment on above: Result Comment: Fast ing Glucose result from 100 to 125 mg/dL suggests IMPAIRED HOMEOSTASIS per A.D.A. criteria. Performed By: #### L 300.8000, L501.5200, L500.2500 #### [facility] [address] [place], [address] Potassium [Moles/Vol] 4.1 mmol/L Normal 3.5-5.1 [facility] Comment on above: Performed By: #### L 300.8000, L501.5200, L500.2500 #### [facility] [address] [place], [address] Sodium [Moles/Vol] 138 mmol/L Normal 136-145 [facility] Comment on above: Performed By: #### L 300.8000, L501.5200, L500.2500 #### [facility] [address] [place], [address] Urea nitrogen [Mass/Vol] 14 mg/dL Normal 7-18 [facility] Comment on above: Performed By: #### L 300.8000, L501.5200, L500.2500 #### [facility] [address] [place], [address] CBC W/Diff, Automatedon 10-1 0-2024 Absolute Lymph 3.19 X10 3/uL Normal 0.83-4.51 [facility] Comment on above: Performed By: #### L 100.0100 #### [facility] [address] [place], [address] Absolute Neut 3.4 X10 3/uL Normal 2.0-7.7 [facility] Comment on above: Performed By: #### L 100.0100 #### [facility] [address] [place], [address] Basophils/100 WBC (Bld) 0.4 % Normal 0-1 [facility] Comment on above: Performed By: #### L 100.0100 #### [facility] [address] [place], [address] Eosinophils/100 WBC (Bld) 3.4 % Normal 0-5 [facility] Comment on above: Performed By: #### L 100.0100 #### [facility] [address] [place], [address] Erythrocyte distribution width (RBC) [Ratio] 16.6 % High 11.6-14.6 [facility] Comment on above: Performed By: #### L 100.0100 #### [facility] [address] [place], [address] Hematocrit (Bld) [Volume fraction] 26.7 % Low 37-47 [facility] Comment on above: Performed By: #### L 100.0100 #### [facility] [address] [place], [address] Hemoglobin (Bld) [Mass/Vol] 8.6 g/dL Low 12.0-15.0 [facility] Comment on above: Performed By: #### L 100.0100 #### [facility] [address] [place], [address] IG% 0.300 Normal 0.0-0.9 [facility] Comment on above: Result Comment: IG% - Immature Granulocytes (promyelocytes, myelocytes and metamyelocytes) > 1% indicates that a LEFT SHIFT is Present. Performed By: #### L 100.0100 #### [facility] [address] [place], [address] Lymphocytes/100 WBC (Bld) 43.4 % High 19-41 [facility] Comment on above: Performed By: #### L 100.0100 #### [facility] [address] [place], [address] MCH (RBC) [Entitic mass] 28.6 pg Normal 27.0-32.0 [facility] Comment on above: Performed By: #### L 100.0100 #### [facility] [address] [place], [address] MCHC (RBC) [Mass/Vol] 32.2 g/dL Normal 32-36 [facility] Comment on above: Performed By: #### L 100.0100 #### [facility] [address] [place], [address] MCV (RBC) [Entitic vol] 88.7 fL Normal 81-99 [facility] Comment on above: Performed By: #### L 100.0100 #### [facility] [address] [place], [address] Monocytes/100 WBC (Bld) 6.1 % Normal 0-10 [facility] Comment on above: Performed By: #### L 100.0100 #### [facility] [address] [place], [address] Neutrophils/100 WBC (Bld) 46.4 % Low 47-70 [facility] Comment on above: Performed By: #### L 100.0100 #### [facility] [address] [place], [address] Nucleated RBC (Bld) [#/Vol] 0 10*3/uL Normal 0-5 [facility] Comment on above: Performed By: #### L 100.0100 #### [facility] [address] [place], [address] Platelet mean volume (Bld) [Entitic vol] 11.5 fL Normal 6.2-12.0 [facility] Comment on above: Performed By: #### L 100.0100 #### [facility] [address] [place], [address] Platelets (Bld) [#/Vol] 142 10*3/uL Low 150-450 [facility] Comment on above: Performed By: #### L 100.0100 #### [facility] [address] [place], [address] RBC (Bld) [#/Vol] 3.01 10*6/uL Low 4.2-5.4 [facility] Comment on above: Performed By: #### L 100.0100 #### [facility] [address] [place], [address] RDW SD 53.8 fl High 35.1-43.9 [facility] Comment on above: Performed By: #### L 100.0100 #### [facility] [address] [place], [address] WBC (Bld) [#/Vol] 7.4 10*3/uL Normal 4.4-11.0 [facility] Comment on above: Performed By: #### L 100.0100 #### [facility] [address] [place], [address] CTA Chest W/WO Contraston CTA Chest W/WO Contrast [facility] Imaging Services [address] [facility] [address] CTA Chest W/WO Contrast MR#: [id number] Acct: [id number] Name: LISA MESA Rep #: [id number] : 1995 F 29 From: Ning Talley PCP: ARLINE CORADO Status: [facility] ER Study: CTA Chest W/WO Contrast Date of Exam: 05/08/24 Exam# [id number] Ordering Dr: Nelson Ulloa DO [id number] STUDY: CTA CHEST REASON FOR EXAM: Female, 29 years old. dyspnea with elevated d-dimer RADIATION DOSAGE (If Supplied By Facility): CTDIvol = ( 19.35 ) mGy, DLP = ( 488.15 ) mGycm TECHNIQUE: The examination was performed with the intravenous administration of ISOVUE 370 100ML. Post-processing of the angiographic images was performed, with multiplanar reformation and 3D reconstruction. The protocol utilizes one or more of the following dose reduction techniques: automated exposure control, adjustment of mA and/or kV according to patient size,and/or use of iterative reconstruction technique. COMPARISON: No relevant prior comparison study available FINDINGS: Normal enhancement of the main pulmonary artery and right and left pulmonary arteries. Normal enhancement of the bilateral peripheral pulmonary arteries. There is no demonstrated pulmonary embolism. Normal thoracic aorta and visualized great vessels. There is no demonstrated aortic dissection. Normal heart and pericardium. Normal mediastinum. Normal hilar regions. Normal visualized trachea and bronchi. The lungs are well expanded. Normal pulmonary parenchyma. Normal pleura. Normal chest wall structures. Normal osseous structures. Normal visualized upper abdomen. CT/CTA Chest W/WO Contrast IMPRESSION: Normal CTA chest examination, without a demonstrated pulmonary embolism or arterial dissection. Electronically Signed: Ning Hess MD at 5:30 EDT Reading Location ID and State: [facility] / [place] Tel , Service support , CC: ARLINE CORADO; Nelson Ulloa DO Material Mover: Signed Normal [facility] Chest PA and Lateralon 05-08 Chest PA and Lateral [facility] Imaging Services [address] [place], [place] [id number] Chest PA and Lateral MR#: [id number] Acct: [id number] Name: LISA MESA Rep #: [id number] : 1995 F 29 From: Ning Talley PCP: ARLINE CORADO Status: REG ER Study: Chest PA and Lateral Date of Exam: 05/08/24 Exam# [id number] Ordering Dr: Nelson Ulloa DO [id number] INDICATION: dyspnea EXAMINATION/TECHNIQUE: X-RAY - XR Chest 2 Views COMPARISON: CR ChestSep 2020 3:39am FINDINGS: LINES/DEVICES: None. LUNGS: No consolidation, edema or effusion. No pneumothorax. MEDIASTINUM AND CARDIOVASCULAR STRUCTURES: Cardiac silhouette not enlarged. Central airways and mediastinal contour are unremarkable. BONES AND SOFT TISSUES: Unremarkable. RAD/Chest PA and Lateral IMPRESSION: No radiographic evidence of acute cardiopulmonary disease. Electronically Signed: Ning Hess MD at 4:43 EDT Reading Location ID and State: [facility] / [place] Tel , Service support , CC: ARLINE CORADO; Nelson Ulloa DO Material Mover: Signed Normal [facility] D-Dimer Quantitative (DVT/PE )on 05-08-2024 D-DIMER QUANT 0.91 FEU/ug/m Invalid Interpretation Code 0.27-0.49 [facility] Comment on above: Result Comment: D-Di sagar ELEVATED (>0.49): Additional studies and clinical assessments are indicated to conclude diagnosis of: Deep Vein Thrombosis (DVT) or Pulmonary Embolism (PE) CRITICAL VALUE CALLED TO [place] [address] 05/08/24 0438 Shikha Navas. RESULTS READ BACK BY SAME. Performed By: #### L 300.8000, L501.5200, L500.2500 #### [facility] [address] [place], [address] Emergency Department Summary on 05-08-2024 Emergency Department Summary [facility] Medical Records Department [address] [place] [address] Emergency Department Summary 05/08/24 MR#: [id number] Acct: [id number] Name: LISA MESA Rep #: [id number] : 1995 29 From: Nelson Ulloa DO PCP: ARLINE CORADO Status:REG ER Location: ED HPI History of Present Illness Chief Complaint: Shortness of Breath Informant: patient and spouse/S.O. Narrative Narrative: Patient is a 29-year-old female with past medical history of anxiety iron deficiency anemia and diabetes on metformin. She states that just a few days ago she had undergo a D C for a spontaneous miscarriage that led to profuse bleeding. She states that she stays up throughout the evening and roughly 2 hours prior to arrival while at rest she felt shaky and short of breath. She denies any sick symptoms such as congestion drainage or cough. She denies any hormone use or previous history of DVT/PE. She does state that she is concerned about need for blood transfusion based on the amount that she was bleeding during her miscarriage and therefore with the shortness of breath sensation she presents for evaluation [facility] Medical History Anxiety Paresthesias Cervical radiculopathy Cervicalgia Anxiety Home Medications ???Medication ???Instructions ???Recorded ???Last Taken ???Type duloxetine 30 mg capsule,delayed 30 mg PO DAILY #30 caps 06/01/21 Unknown Rx release (Cymbalta) duloxetine 30 mg capsule,delayed 30 mg PO DAILY #7 caps 06/09/21 Unknown Rx release duloxetine 60 mg capsule,delayed 60 mg PO DAILY #30 caps 06/09/21 Unknown Rx release ferrous sulfate 325 mg (65 mg 325 mg PO 04/03/24 Unknown History iron) tablet (FeroSul) metformin 500 mg tablet 500 mg PO DAILY 04/03/24 Unknown History Allergy/AdvReac Type Severity Reaction Status Date / Time acetaminophen (From Vicodin) Allergy Hives Verified 04/03/24 06:10 hydrocodone (From Vicodin) Allergy Hives Verified 04/03/24 06:10 Family History Other Cancer Diabetes Seizures Social History Smoking Status: Current every day smoker tobacco type: cigarettes Tobacco: How many years used: 6 second hand exposure: Yes alcohol intake: current alcohol intake frequency: holidays/special occasions only substance use type: former substance user Date of last use: used some marijuana in the past ROS ROS ED Constitutional Constitutional ED: Denies chills or fever(s) Eyes Eyes: Denies blurry vision or change in vision ENT ENT ED: Denies rhinorrhea or sore throat Cardiovascular Cardiovascular: Denies chest pain, palpitations or racing heartbeat Respiratory/Chest Respiratory/Chest: Reports dyspnea; Denies cough Gastrointestinal Gastrointestinal: Denies abdominal pain, diarrhea, nausea or vomiting Genitourinary Genitourinary ED: Denies dysuria Musculoskeletal Musculoskeletal: Denies myalgias Integumentary Denies rash Neurologic Neurologic: Denies headache(s) Psychiatric Psychiatric: Reports anxiety Hematologic/Lymphatic Hematologic/Lymphatic: Denies easy bleeding or easy bruising Allergic/Immunologic Allergic/Immunologic ED: Denies mouth swelling or tongue swelling EXAM Physical Exam Const Vital Signs: 05/08/24 03:47 Temperature 98.3 F Temperature Source Oral Pulse Rate 90 Respiratory Rate 18 Blood Pressure 125/79 H Blood Pressure Mean 94 Pulse Ox 99 Oxygen Delivery Method Room Air Positive well nourished and well developed General Appearance ED: well developed; Negative for pallor HEENT HEENT Narrative: No tongue or lip swelling no oral lesions no airway edema or compromise Eyes PERRL and EOMs intact bilaterally General Eye ED: Yes pale conjunctiva; Negative for scleral icterus Neck supple and no JVD Neck Narrative: No nuchal rigidity or meningeal signs Chest Wall palpation of chest normal Resp normal respiratory effort Resp Narrative: Patient has faint rhonchi present in the bilateral lower lobes but otherwise no nasal flaring retractions tachypnea accessory muscle use stridor or shortness of breath with speech Cardio regular rate and regular rhythm Rate: other Other Details: Heart is regular rate and rhythm without murmurs rubs or gallops Radial and carotid pulses are equal and symmetric Extremity normal to inspection Extremity Narrative: No asymmetric edema no pitting edema negative Homans' sign bilaterally Neuro oriented x3, CN's II-XII intact bilaterally and no sensory deficits noted Sensorium / Orientation: alert Motor Exam: strength 5/5 throughout Psych Psych Narrative: Patient has a nervous/anxious affect Mood Affect: anxious Skin no (more content not included)... Normal [facility] Magnesiumon 05-08-2024 Magnesium [Mass/Vol] 2.1 mg/dL Normal 1.6-2.6 [facility] Comment on above: Performed By: #### L 300.8000, L501.5200, L500.2500 #### [facility] [address] [place], [address] B-HCG SerPl-aCncon 4 HCG.beta subunit Qn 2327.0 m[IU]/mL High <5.0 [facility] Comment on above: Order Comment: Speci men Type: TISSUE SPECIMEN Ordering Facility: [facility] Address: [address] [place] [address] Result Comment: JALYN TITATIVE HCG NORMAL RANGES Weeks of Gestation (Weeks Since LMP) 3 Weeks (5.8-71.2 mIU/mL) 4 Weeks (9.5-750 mIU/mL) 5 Weeks (217-7138 mIU/mL) 6 Weeks (158-12137 mIU/mL) 7 Weeks (3697-323137 mIU/mL) 8 Weeks (13813-565351 mIU/mL) 9 Weeks (32212-112831 mIU/mL) 10 Weeks (46010-579515 mIU/mL) 12 Weeks (22152-531436 mIU/mL) Referenced to 4th IS of [facility] Performed By: #### S #### [facility] CLIA [id number] [address] [place] [address] [place] [facility] CNOVon 05-06-2024 CNOV Office Visit (OBGYWM ) LISA MESA ([id number]) 1995 F Date Time Provider Department 05/06/24 2:30 PM ZACHARIAH CURRIE OBGYWM During your visit today, we recorded the following information about you: Pulse Respiration Blood pressure Weight 102/minute 18/minute 108/70 96.2 kg Zachariah Currie MD 05/07/2024 10:35 AM Signed Lisa Waters Bonita is a 29 year old female who presents for problem visit for vaginal bleeding, falling HCG levels. Patient's last menstrual period was 02/18/2024 (within days). Last week was seen for this and dx w/ SAB. Last night started bleeding and went to [facility] ED but long wait so went to [facility] ED and they offered patient to go to [facility] or f/u in office. Patient was d/jose home to f/u today. Having waves of cramping nad passing clots, bleeding heavier than a period. Soaked through pads last night then it slowed and passed more clots. OB History T3 L3 SAB0 IAB0 Ectopic0 Multiple0 Live Births3 Research Quality Assurance Specialist History LMP: 02/18/2024 (Within Days), Recent Age at Menarche: Age at First : Age at Menopause: Research Quality Assurance Specialist History Comments: Sexual Activity: Yes; Male Contraception: No contraception data on record PAST MEDICAL HISTORY Diagnosis Date Anemia previous Diabetes mellitus (HCC) 2023 Headaches History of gestational diabetes 2021 History of sexually transmitted disease PAST SURGICAL HISTORY Procedure Laterality Date NONE NONE FAMILY HISTORY Problem Relation Age of Onset Diabetes Mother Cancer Mother Throat Leukemia Mother No Known Problems Father Diabetes Sister other (Epilepsy) Sister Social History Tobacco Use Smoking status: Former Types: Cigarettes Smokeless tobacco: Never Vaping Use Vaping status: Never Used Substance Use Topics Alcohol use: Yes Comment: socially Drug use: Never Current Outpatient Medications Medication Sig ONETOUCH ULTRA TEST test strip TEST BLOOD SUGAR EVERY DAY ferrous sulfate 325 mg (65 mg iron) EC tablet Take 325 mg by mouth. vit no.124/iron/folic ( VITAMIN ORAL) Take 1 tablet by mouth once daily. metFORMIN (GLUCOPHAGE) 500 mg tablet Take 1 tablet by mouth daily with breakfast. amLODIPine (NORVASC) 5 mg tablet Take 1 tablet by mouth once daily. (Patient not taking: Reported on 05/06/2024) No current facility-administered medications for this visit. Allergies As of Date: 05/06/2024 Allergen Noted Reaction ACETAMINOPHEN 06/09/2021 Hives HYDROCODONE 06/09/2021 Hives HYDROCODONE-ACETAMINOP HEN 03/16/2022 Hives Fully Assessed 05/06/2024 REVIEW OF SYSTEMS denies CP/SOB/CP or palpitations, fever or chills. Allergies and current medication updated:Yes SENSITIVE EXAM: The sensitive examination was discussed with the Patient or Patient's Authorized Marinator. As applicable, any other physician, advance practice provider, medical student, or other health professional student that will be observing or involved in the sensitive examination for educational or training purposes was discussed with the Patient or Authorized Marinator. The Patient or Authorized Marinator has agreed to proceed with the sensitive examination. (Sensitive examination includes inspection and/or palpation of the breasts, pelvis, prostate and anorectal regions). EXAM: Wt 212 lb (96.2kg) LMP 02/18/2024 GENERAL: in pain, female in mild distress ABDOMEN: soft, non-tender, and no masses PELVIC: external genitalia normal, normal Bartholin's glands, urethra, Chatmoss's glands, no vulvar lesions, no cervical lesions, good vaginal support, normal appearing perineal body and perianal region, cervix dilated, large clots in vault, approx 100 cc cleared out and on pads. Some active bleeding. NO POCs visible at os. TVUS done- 3 x 5 cm heterogeneous debris noted. BIMANUAL: anteverted, no adnexal masses, and appropriately tender ASSESSMENT AND PLAN: incomplete sab, active bleeding R/B/A to suction DANDC in ED vs in office IPAS reviewed, questions answered, decision for surgery today. Quant pending, will not send for CBC due to timing and need to get procedure done by end of day. UNIVERSAL PROTOCOL / SAFETY CHECKLIST Procedure to be Performed: IPAS in office for miscarriage Sign In: A Moment of CARE was completed. Personnel directly involved with the procedure wore the appropriate PPE (Personal Protective Equipment). Patient/Surrogate Stated/Verified: PATIENT VERIFIED(optional for EMERGENT procedures): Patient name, Date of , Relevant allergies, and The intended procedure Time Out Communication: Intended patient and procedure match the source documents. Consent documented and matches the intended procedure. Relevant labs, photos, and/or imaging studies have been reviewed. No implant(s) inserted. Sign Out: SIGN OUT (optional for EMERGENT p (more content not included)... Normal [facility] SURGICAL PATHOLOGYon CASE REPORT Normal [facility] Comment on above: Order Comment: Speci men Type: TISSUE SPECIMEN Ordering Facility: [facility] Address: [address] [place] [address] Result Comment: Surg ica Pathology Report Case: [id number] Authorizing Provider: Zachariah Currie MD Collected: 05/06/2024 04:56 PM Ordering Location: OB/Gynecology Received: 05/07/2024 12:08 PM Pathologist: Eli Bowen MD Specimen: Products of Conception Performed By: #### S #### [facility] CLIA [id number] [address] [place] [address] [place] CLINICAL HISTORY incomplete spontaneo us Normal [facility] Comment on above: Order Comment: Speci men Type: TISSUE SPECIMEN Ordering Facility: [facility] Address: [address] [place] [address] Performed By: #### S #### [facility] CLIA [id number] [address] [place] [address] [place] FINAL DIAGNOSIS Normal [facility] Comment on above: Order Comment: Speci men Type: TISSUE SPECIMEN Ordering Facility: [facility] Address: [address] [place] [address] Result Comment: A. Products of conception: - Products of conception, to include immature chorionic villi. - Decidua and gestational endometrium. Performed By: #### S #### [facility] CLIA [id number] [address] [place] [address] [place] FINAL PERFORMING LAB Normal [facility] Comment on above: Order Comment: Speci men Type: TISSUE SPECIMEN Ordering Facility: [facility] Address: [address] [place] [address] Result Comment: Diag nostic interpretation performed at [facility], [address] [place] [address] CLIA# [id number] Watch Parts Inspector: Jeremiah Lemons M.D. Performed By: #### S #### [facility] CLIA [id number] [address] [place] [address] [place] GROSS DESCRIPTION Normal [facility] Comment on above: Order Comment: Speci men Type: TISSUE SPECIMEN Ordering Facility: [facility] Address: [address] [place] [address] Result Comment: A. P roducts of Conception Received in formalin labeled products of conception are multiple irregularly-shaped, purple-medina, soft tissue fragments admixed with blood clot aggregating to 6 x 4.5 x 0.5 cm. There is possible chorionic villi. There are no vesicles or parts. Marinator sections are submitted in cassettes A1-A3. DAVINA May 07, 2024 3:45 PM Gross examination performed at [facility], [address] [place] [address] CLIA# [id number] Performed By: #### S #### [facility] CLIA [id number] [address] [place] [address] [place] PREGUon 05-05-2024 HCG ( test) Ql (U) Positive Normal [facility] Comment on above: Performed By: #### U A, PREGU, UAMIC #### [facility] [address] [place] [address] test (u) int Detected Invalid Interpretation Code [facility] Comment on above: Performed By: #### U A, PREGU, UAMIC #### [facility] [address] [id number] UAon 05-05-2024 Color (U) Straw Normal [facility] Comment on above: Performed By: #### U A, PREGU, UAMIC #### [facility] [address] [place] [phone] Glucose (U) [Mass/Vol] Negative Normal Negative [facility] Comment on above: Performed By: #### U A, PREGU, UAMIC #### [facility] [address] [place], [place] [address] Ketones Ql (U) Negative Normal Neg-Trace [facility] Comment on above: Performed By: #### U A, PREGU, UAMIC #### [facility] [address] [place] [id number] UA Appear Clear Normal [facility] Comment on above: Performed By: #### U A, PREGU, UAMIC #### [facility] [address] [address] UA Blood Large Abnormal Neg-Trace [facility] Comment on above: Performed By: #### U A, PREGU, UAMIC #### [facility] [address] [address] UA Leuk Est Negative Normal Negative [facility] Comment on above: Performed By: #### U A, PREGU, UAMIC #### [facility] [address] [place] [address] UA Nitrite Negative Normal Negative [facility] Comment on above: Performed By: #### U A, PREGU, UAMIC #### [facility] [address] [address] UA pH 5.5 Normal 5.0 - 8.0 [facility] Comment on above: Performed By: #### U A, PREGU, UAMIC #### [facility] [address] [place] [address] UA Protein Negative Normal Negative [facility] Comment on above: Performed By: #### U A, PREGU, UAMIC #### [facility] [address] [place] [address] UA Spec Grav <=1.005 Abnormal [facility] Comment on above: Performed By: #### U A, PREGU, UAMIC #### [facility] [address] [place] [address] UA Specimen Type Clean Catch Normal [facility] Comment on above: Performed By: #### U A, PREGU, UAMIC #### [facility] [address] [place] [address] UA Urobilinogen 0.2 E.U./dL Normal [facility] Comment on above: Performed By: #### U A, PREGU, UAMIC #### [facility] [address] [place] [address] Urobilinogen (U) [Mass/Vol] Negative Normal Neg-Trace [facility] Comment on above: Performed By: #### U A, PREGU, UAMIC #### [facility] [address] [place] [id number] UAMICon 05-05-2024 UA Bacteria Negative Normal Negative [facility] Comment on above: Performed By: #### U A, PREGU, UAMIC #### [facility] [address] [place], [place] [address] UA RBC 25-50 Abnormal 0-2 [facility] Comment on above: Performed By: #### U A, PREGU, UAMIC #### [facility] [address] [place] [id number] UA Squam Epithelial 0-2 Normal 0-20 [facility] Comment on above: Performed By: #### U A, PREGU, UAMIC #### [facility] [address] [place] [id number] UA WBC 0-2 Normal 0-5 [facility] Comment on above: Performed By: #### U A, PREGU, UAMIC #### [facility] [address] [place] [phone] CNPNon 05-02-2024 CNPN Telephone (BOLIVARGYWErick) LISA MESA ([id number]) 1995 F Date Time Provider Department 05/02/24 LETI ARANDA During your visit today, we recorded the following information about you: Irma Lin RN 05/02/2024 1:59 PM Signed ----- Message from Leti Aranda APRN.CNM sent at 05/02/2024 1:12 PM EDT ----- HCG level is decreasing. Patient aware that she needs to complete follow up levels. RESHMA Momin Tara, RN 05/02/2024 1:59 PM Signed CP notified Pt. Please leave phone note open to f/u on HCG results. TRUMAN Ramírez Jennifer, RN 05/05/2024 12:24 PM Signed Spoke with patient. She will have another HCG level drawn today since she has an appointment with [facility] on Sunday. Bleeding a little more. Changing a pad every 2-3 hours for comfort. Not soaking a pad. Scarlett Robledo RN Allergies As of Date: 05/02/2024 Noted Allergy Reaction ACETAMINOPHEN 06/09/2021 4 - Hives HYDROCODONE 06/09/2021 4 - Hives HYDROCODONE-ACETAMINOP HEN 03/16/2022 4 - Hives Date Reviewed: 05/01/2024 Reviewed by: Luis Felipe Ordoñez MA - Fully Assessed Reason for Visit: Results [95] Prescriptions as of 05/07/2024 - ONETOUCH ULTRA TEST test strip TEST BLOOD SUGAR EVERY DAY - ferrous sulfate 325 mg (65 mg iron) EC tablet Take 325 mg by mouth. - vit no.124/iron/folic ( VITAMIN ORAL) Take 1 tablet by mouth once daily. - amLODIPine (NORVASC) 5 mg tablet Take 1 tablet by mouth once daily. - metFORMIN (GLUCOPHAGE) 500 mg tablet Take 1 tablet by mouth daily with breakfast. Problem List As Of Date 05/02/2024 Noted Resolved GBS bacteriuria [R82.71] 01/29/2019 headache in second trimester [O26.892*01/29/2019 History of sexually transmitted disease [Z86.19]01/29/2019 Tobacco smoking affecting in second t*01/29/2019 Vaginitis [N76.0] 01/29/2019 14 weeks gestation of [Z3A.14] 01/29/2019 Numbness [R20.0] 12/09/2023 Facial numbness [R20.0] 12/09/2023 Nicotine use disorder, F17.2 [F17.200] 12/10/2023 Obesity, Class I, BMI 30-34.9 [E66.811] 12/10/2023 Encounter Status:Closed by IRMA LIN on 05/07/24 Normal [facility] B-HCG SerPl-aCncon HCG.beta subunit Qn 4890.0 m[IU]/mL High <5.0 [facility] Comment on above: Order Comment: Speci men Type: TISSUE SPECIMEN Ordering Facility: [facility] Address: [address] [place] [address] Result Comment: JALYN TITATIVE HCG NORMAL RANGES Weeks of Gestation (Weeks Since LMP) 3 Weeks (5.8-71.2 mIU/mL) 4 Weeks (9.5-750 mIU/mL) 5 Weeks (217-7138 mIU/mL) 6 Weeks (158-18875 mIU/mL) 7 Weeks (3697-392707 mIU/mL) 8 Weeks (31550-136575 mIU/mL) 9 Weeks (62480-619054 mIU/mL) 10 Weeks (70246-039737 mIU/mL) 12 Weeks (73375-955454 mIU/mL) Referenced to 4th IS of [facility] Performed By: #### S #### [facility] CLIA [id number] [address] [place] [address] OF [facility] CNOVon 05-01-2024 CNOV Office Visit (OBGYWM ) LISA MESA ([id number]) 1995 F Date Time Provider Department 05/01/24 1:30 PM LETI ARANDA OBJEFFERY During your visit today, we recorded the following information about you: Blood pressure Weight 108/70 97.1 kg Leti Aranda APRN.CNM 05/01/2024 2:31 PM Signed Lisa Levya is a 29 year old female who presents for follow up visit. HPI: Positive test in ED on 04/03/24. At that time and ultrasound showed a possible small gestational sac with NO pole or yolk sac. Patient having HCG levels drawn and returned today for a formal ultrasound for viability. TODAY: Small, abnormally shaped gestational sac visualized with NO pole or yolk sac. Patient reports that she started spotting and cramping this morning. Research Quality Assurance Specialist History LMP: 02/18/2024 (Within Days), Age at Menarche: Age at First : Age at Menopause: Research Quality Assurance Specialist History Comments: Sexual Activity: Yes; Male Contraception: No contraception data on record PAST MEDICAL HISTORY Diagnosis Date Anemia previous Headaches History of sexually transmitted disease PAST SURGICAL HISTORY Procedure Laterality Date NONE NONE FAMILY HISTORY Problem Relation Age of Onset Diabetes Mother Cancer Mother Throat Leukemia Mother No Known Problems Father Diabetes Sister other (Epilepsy) Sister Social History Tobacco Use Smoking status: Former Types: Cigarettes Smokeless tobacco: Never Vaping Use Vaping status: Never Used Substance Use Topics Alcohol use: Yes Comment: socially Drug use: Never Current Outpatient Medications Medication Sig ferrous sulfate 325 mg (65 mg iron) EC tablet Take 325 mg by mouth. vit no.124/iron/folic ( VITAMIN ORAL) Take 1 tablet by mouth once daily. metFORMIN (GLUCOPHAGE) 500 mg tablet Take 1 tablet by mouth daily with breakfast. amLODIPine (NORVASC) 5 mg tablet Take 1 tablet by mouth once daily. No current facility-administered medications for this visit. Allergies As of Date: 05/01/2024 Allergen Noted Reaction ACETAMINOPHEN 06/09/2021 Hives HYDROCODONE 06/09/2021 Hives HYDROCODONE-ACETAMINOP HEN 03/16/2022 Hives Fully Assessed 05/01/2024 REVIEW OF SYSTEMS Abdomen: No bloating, early satiety, indigestion, or increased flatulence. Bladder: No dysuria, gross hematuria, urinary frequency, urinary urgency, or incontinence. Breast: No breast lumps, nipple d/c, overlying skin changes, redness or skin retraction. Expanded ROS: N/A Allergies and current medication updated:Yes SENSITIVE EXAM: Sensitive exam not performed. EXAM: BP 108/70 Wt 214 lb (97.1kg) LMP 02/18/2024 GENERAL: pleasant, female in no apparent distress HEENT: Normocephalic and atraumatic NECK: Supple and full range of motion DERMATOLOGY: Normal and without lesions ASSESSMENT/PLAN: 1. Positive test - ICD9: V72.42, ICD10: Z32.01 (primary diagnosis) 2. Threatened miscarriage - ICD9: 640.00, ICD10: O20.0 3. with uncertain dates in first trimester - ICD9: V22.1, ICD10: Z34.91 4. Spotting affecting in first trimester - ICD9: 649.53, ICD10: O26.851 - Discussed today's ultrasound findings with patient and partner - No s/s of ectopic per US commercial kitchen service technician - Current gestational sac is 82 mm - Advised patient that at this time we should have seen a change in the ultrasound findings and visualize either a yolk sac or pole - Patient will need to continue to get HCG levels drawn - Bleeding precautions reviewed - Discussed returning to office next week for follow up visit and US. - If still small sac present - may need medical and/or surgical intervention - Patient and partner voice understanding - Support provided Leti Aranda APRN.CNM Referring Provider: SUSHIL VILLANUEVA [[id number]] Allergies As of Date: 05/01/2024 Noted Allergy Reaction ACETAMINOPHEN 06/09/2021 4 - Hives HYDROCODONE 06/09/2021 4 - Hives HYDROCODONE-ACETAMINOP HEN 03/16/2022 4 - Hives Date Reviewed: 05/01/2024 Reviewed by: Luis Felipe Ordoñez MA - Fully Assessed Reason for Visit: Follow Up [171] Cmt: Viability US f/u Primary Visit Diagnosis:Positive test [Z32.01] Other Visit Diagnoses:Threatened miscarriage [O20.0] with uncertain dates in first trimester [Z34.91] Spotting affecting in first trimester [O26.851] Prescriptions as of 05/01/2024 - ferrous sulfate 325 mg (65 mg iron) EC tablet Take 325 mg by mouth. - vit no.124/iron/folic ( VITAMIN ORAL) Take 1 tablet by mouth once daily. - amLODIPine (NORVASC) 5 mg tablet Take 1 tablet by mouth once daily. - metFORMIN (GLUCOPHAGE) 500 mg tablet Take 1 tablet by mouth daily with breakfast. Problem List As Of Date 05/01/2024 Noted Resolved GBS bacteriuria [R82.71] 01/29/2019 headache in seco (more content not included)... Normal [facility] US Pelvison 05-01-2024 Indication viability, spotting Impression Normal appearing anteverted uterus measuring 118 mm x 88 mm x 80 mm. The central endometrial complex has a heterogeneous echotexture. Within the endometrium, there is a gestational sac with irregular shape. No yolk sac or pole is observed. Both ovaries are visualized and appear normal. No adnexal masses identified. There is no free fluid visualized in the peritoneal cavity. Ultrasound Consultation Recommendations Repeat hCG is pending. Follow up as clinically indicated. Method Transabdominal and transvaginal ultrasound examination Bhatia . Number of fetuses: 1 Dating LMP on: 02/18/2024 GA by LMP 10 w + 3 d KORINA by LMP: 11/24/2024 Assigned: based on the LMP, selected on 04/28/2024 Assigned GA 10 w + 3 d Assigned KORINA: 11/24/2024 Assessment Gestational sac: visualized GS 8.2 mm -/- <1% Darion Location: intrauterine Yolk sac: not visualized Embryo: not visualized Type: possible Missed Uterus Uterus: Visualized Uterus position: anteverted Endometrium: intrauterine gestational sac, inhomogeneous endo. Cervix details: normal Uterus length 118 mm Uterus width 88 mm Uterus height 80 mm Uterus Vol 432.2 cm Cul de Sac Visualized. no free fluid visualized Right Ovary Rt ovary: Visualized Rt ovary morphology: premenopausal normal follicular Rt ovary D1 44 mm Rt ovary D2 26 mm Rt ovary D3 16 mm Rt ovary Vol 9.4 cm Left Ovary Lt ovary: Visualized Lt ovary morphology: premenopausal normal follicular Lt ovary D1 32 mm Lt ovary D2 18 mm Lt ovary D3 21 mm Lt ovary Vol 6.3 cm Performed By: Melissa Murry RDMS Read By: Magda Moscoso M.D. MATERNAL MEDICINE [facility] Radiology Study observation (narrative) [facility] B-HCG SerPl-aCncon 4 HCG.beta subunit Qn 5643.0 m[IU]/mL High <5.0 [facility] Comment on above: Order Comment: Speci men Type: TISSUE SPECIMEN Ordering Facility: [facility] Address: [address] [place] [address] Result Comment: JALYN TITATIVE HCG NORMAL RANGES Weeks of Gestation (Weeks Since LMP) 3 Weeks (5.8-71.2 mIU/mL) 4 Weeks (9.5-750 mIU/mL) 5 Weeks (217-7138 mIU/mL) 6 Weeks (158-31569 mIU/mL) 7 Weeks (3697-045657 mIU/mL) 8 Weeks (96177-475850 mIU/mL) 9 Weeks (55175-421027 mIU/mL) 10 Weeks (96992-746839 mIU/mL) 12 Weeks (19473-060696 mIU/mL) Referenced to 4th IS of [facility] Performed By: #### S #### [facility] CLIA [id number] [address] [place] [address] [place] Bacteria Ur Culton Bacteria identified Cx Nom (U) ORGANISM ID: 1 50,000-<100,000 CFU/ml Normal urogenital marilu Normal [facility] Comment on above: Performed By: #### S #### [facility] CLIA [id number] [address] [place] [address] [place] CBC panel Auto (Bld)on 04-28 Erythrocyte distribution width (RBC) [Ratio] 16.9 % High 11.5 - 15.0 % [facility] Hematocrit (Bld) [Volume fraction] 35.1 % Low 36.0 - 46.0 % [facility] Hemoglobin (Bld) [Mass/Vol] 11.8 g/dL 11.5 - 15.5 g/dL [facility] Interpretation and review of laboratory results Abnormal [facility] MCH (RBC) [Entitic mass] 28.4 pg 26.0 - 34.0 pg [facility] MCHC (RBC) [Mass/Vol] 33.6 g/dL 30.5 - 36.0 g/dL [facility] MCV (RBC) [Entitic vol] 84.6 fL 80.0 - 100.0 fL [facility] Nucleated RBC (Bld) [#/Vol] NINF [facility] Platelet mean volume (Bld) [Entitic vol] 11.4 fL 9.0 - 12.7 fL [facility] Platelets (Bld) [#/Vol] 176 10*3/uL [facility] RBC (Bld) [#/Vol] 4.15 10*6/uL 3.90 - 5.2 0 m/uL [facility] WBC (Bld) [#/Vol] 6.68 10*3/uL [facility] Erythrocyte distribution width (RBC) [Ratio] 16.9 % High 11.5-15.0 [facility] Comment on above: Order Comment: Speci men Type: TISSUE SPECIMEN Ordering Facility: [facility] Address: [address] [place] [address] Performed By: #### S #### [facility] CLIA [id number] [address] [place] [address] [place] Hematocrit (Bld) [Volume fraction] 35.1 % Low 36.0-46.0 [facility] Comment on above: Order Comment: Speci men Type: TISSUE SPECIMEN Ordering Facility: [facility] Address: [address] [place] [address] Performed By: #### S #### [facility] CLIA [id number] [address] [place] [address] [place] Hemoglobin (Bld) [Mass/Vol] 11.8 g/dL Normal 11.5-15.5 [facility] Comment on above: Order Comment: Speci men Type: TISSUE SPECIMEN Ordering Facility: [facility] Address: [address] [place] [address] Performed By: #### S #### [facility] CLIA [id number] [address] [place] [address] [place] MCH (RBC) [Entitic mass] 28.4 pg Normal 26.0-34.0 [facility] Comment on above: Order Comment: Speci men Type: TISSUE SPECIMEN Ordering Facility: [facility] Address: [address] [place] [address] Performed By: #### S #### [facility] CLIA [id number] [address] [place] [address] [place] MCHC (RBC) [Mass/Vol] 33.6 g/dL Normal 30.5-36.0 [facility] Comment on above: Order Comment: Speci men Type: TISSUE SPECIMEN Ordering Facility: [facility] Address: [address] [place] [address] Performed By: #### S #### [facility] CLIA [id number] [address] [place] [address] [place] MCV (RBC) [Entitic vol] 84.6 fL Normal 80.0-100.0 [facility] Comment on above: Order Comment: Speci men Type: TISSUE SPECIMEN Ordering Facility: [facility] Address: [address] [place] [address] Performed By: #### S #### [facility] CLIA [id number] [address] [place] [address] [place] Nucleated RBC (Bld) [#/Vol] 10*3/uL Normal <0.01 [facility] Comment on above: Order Comment: Speci men Type: TISSUE SPECIMEN Ordering Facility: [facility] Address: [address] [place] [address] Performed By: #### S #### [facility] CLIA [id number] [address] [place] [address] [place] Platelet mean volume (Bld) [Entitic vol] 11.4 fL Normal 9.0-12.7 [facility] Comment on above: Order Comment: Speci men Type: TISSUE SPECIMEN Ordering Facility: [facility] Address: [address] [place] [address] Performed By: #### S #### [facility] CLIA [id number] [address] [place] [address] [place] Platelets (Bld) [#/Vol] 176 10*3/uL Normal 150-400 [facility] Comment on above: Order Comment: Speci men Type: TISSUE SPECIMEN Ordering Facility: [facility] Address: [address] [place] [address] Performed By: #### S #### [facility] CLIA [id number] [address] [place], [place] [id number] [place] RBC (Bld) [#/Vol] 4.15 10*6/uL Normal 3.90-5.20 [facility] [place] Comment on above: Order Comment: Speci men Type: TISSUE SPECIMEN Ordering Facility: [facility] Address: [address] [place] [address] Performed By: #### S #### [facility] CLIA [id number] [address] [place] [address] [place] WBC (Bld) [#/Vol] 6.68 10*3/uL Normal 3.70-11.00 [facility] Comment on above: Order Comment: Speci men Type: TISSUE SPECIMEN Ordering Facility: [facility] Address: [address] [place] [address] Performed By: #### S #### [facility] CLIA [id number] [address] [place] [address] [place] CNOVon 04-28-2024 CNOV Office Visit (OBGYWM ) LISA MESA ([id number]) 1995 F Date Time Provider Department 04/28/24 11:00 AM SUSHIL VILLANUEVA OBJEFFERY During your visit today, we recorded the following information about you: Blood pressure Weight Height Last Period 116 97.8 kg 1.784 m 02/18/24 Sushil Villanueva, YANNICK.ENVIRONMENTAL HEALTH AND SAFETY LEADER 04/28/2024 12:59 PM Signed Lisa Levya is a 29 year old female who presents for problem visit of follow up ER visit for positive HCG. HPI: Lisa had a positive test in ER on 04/03/24. HCG was 434. Ultrasound showed GESTATION: There is a 0.5 x 1.0 x 0.6 cm fluid collection in the endometrium of the uterine fundus which questionably represents an early intrauterine gestational sac. This is too small for age estimation. There is no demonstrated pole or yolk sac. HCG wanda to 789 on 04/05/24. She denies any pain or bleeding. Some headaches. OB History T3 L3 SAB0 IAB0 Ectopic0 Multiple0 Live Births3 Research Quality Assurance Specialist History LMP: 02/18/2024 (Within Days), Having periods Age at Menarche: Age at First : Age at Menopause: Research Quality Assurance Specialist History Comments: Sexual Activity: Yes; Male Contraception: No contraception data on record PAST MEDICAL HISTORY Diagnosis Date Anemia previous Headaches History of sexually transmitted disease PAST SURGICAL HISTORY Procedure Laterality Date NONE NONE FAMILY HISTORY Problem Relation Age of Onset Diabetes Mother Cancer Mother Throat Leukemia Mother No Known Problems Father Diabetes Sister other (Epilepsy) Sister Social History Tobacco Use Smoking status: Former Types: Cigarettes Smokeless tobacco: Never Vaping Use Vaping status: Never Used Substance Use Topics Alcohol use: Yes Comment: socially Drug use: Never Current Outpatient Medications Medication Sig vit no.124/iron/folic ( VITAMIN ORAL) Take 1 tablet by mouth once daily. metFORMIN (GLUCOPHAGE) 500 mg tablet Take 1 tablet by mouth daily with breakfast. amLODIPine (NORVASC) 5 mg tablet Take 1 tablet by mouth once daily. acetaminophen (TYLENOL EXTRA STRENGTH) 500 mg tablet Take 2 tablets by mouth every 6 hours as needed for Pain. (Patient not taking: Reported on 04/28/2024) No current facility-administered medications for this visit. Allergies As of Date: 04/28/2024 Allergen Noted Reaction ACETAMINOPHEN 06/09/2021 Hives HYDROCODONE 06/09/2021 Hives HYDROCODONE-ACETAMINOP HEN 03/16/2022 Hives Fully Assessed 04/28/2024 REVIEW OF SYSTEMS Expanded ROS: WINDERMAN: + amenorrhea Allergies and current medication updated:Yes SENSITIVE EXAM: The sensitive examination was discussed with the Patient or Patient's Authorized Marinator. As applicable, any other physician, advance practice provider, medical student, or other health professional student that will be observing or involved in the sensitive examination for educational or training purposes was discussed with the Patient or Authorized Marinator. The Patient or Authorized Marinator has agreed to proceed with the sensitive examination. (Sensitive examination includes inspection and/or palpation of the breasts, pelvis, prostate and anorectal regions). EXAM: LMP 02/18/24-Pt does not recall having any period in month of February 2024 GENERAL: pleasant, female in no apparent distress CHEST: Normal inspiratory effort NEURO: alert and oriented x3,exam grossly non-focal EXTREMITIES: normal ASSESSMENT AND PLAN: 1. with uncertain viability, single or unspecified fetus - ICD9: V23.87, ICD10: O36.80X0 (primary diagnosis) - Discussed ultrasound results and concern for unviable - Bleeding and pain precautions reviewed 2. with uncertain dates in first trimester - ICD9: V22.1, ICD10: Z34.91 - POC NURSE LEADER ULTRASOUND - HCG QUANTITATIVE - COMPLETE BLOOD COUNT - TYPE + SCREEN - URINE CULTURE - PELVIC US WHI - HEMOGLOBIN A1C RTO for formal ultrasound and visit after or sooner as needed. Sushil Villanueva APRN.CNP Medical Decision Making: Problems: Moderate: New problem with uncertain prognosis Data: Unique test result(s) reviewed: 2 Unique test(s) ordered: 3+ Risk: Low: Low risk from testing/treatment Medical Decision Making Level: 4 - Moderate Referring Provider: SELF [200] Allergies As of Date: 04/28/2024 Noted Allergy Reaction ACETAMINOPHEN 06/09/2021 4 - Hives HYDROCODONE 06/09/2021 4 - Hives HYDROCODONE-ACETAMINOP HEN 03/16/2022 4 - Hives Date Reviewed: 04/28/2024 Reviewed by: Sushil Villanueva APRN.ENVIRONMENTAL HEALTH AND SAFETY LEADER - Fully Assessed Reason for Visit: Missed menses [Other] Primary Visit Diagnosis: with uncertain viability, single or unspecified fetus [O36.80X0] Other Visit Diagnosis: with uncertain dates in first trimester [Z34.91] Order(s):POC NURSE LEADER ULTRASOUND [[id number]] Order #: [id number]. (more content not included)... Normal [facility] HbA1c (Bld)on 04-28-2024 Average glucose Estimated from glycated hemoglobin (Bld) [Mass/Vol] 120 mg/dL Normal [facility] Comment on above: Order Comment: Speci men Type: BLOOD SPECIMEN Ordering Facility: [facility] Address: [address] [place] [address] Result Comment: eAG: (Estimated average glucose) is a calculated value from HgbA1c and is senior sales representative of the average blood glucose level in the last 2-3 month period. Performed By: #### 5 5454-3 #### [facility] CLIA [id number] [address] [place] [address] [place] HbA1c (Bld) [Mass fraction] 5.8 % High 4.3-5.6 [facility] Comment on above: Order Comment: Speci men Type: BLOOD SPECIMEN Ordering Facility: [facility] Address: [address] [place] [address] Result Comment: [place] Diabetes Association guidelines indicate that patients with HgbA1c in the range 5.7-6.4% are at increased risk for development of diabetes, and intervention by lifestyle modification may be beneficial. HgbA1c greater or equal to 6.5% is considered diagnostic of diabetes. Performed By: #### 5 5454-3 #### [facility] CLIA [id number] [address] [place] [address] [place] POC NURSE LEADER ULTRASOUNDon 04-28-20 24 Indication Viability; confirm cardiac activity Impression Single intrauterine gestational sac. No yolk sac or pole visualized. Recommendations Follow up for repeat ultrasound this week. Method Transabdominal ultrasound examination. Transvaginal ultrasound examination. View: Adequate visualization Bhatia . Number of fetuses: 1 Dating LMP on: 02/18/2024 GA by LMP 10 w + 0 d KORINA by LMP: 11/24/2024 Assigned: based on the LMP, selected on 04/28/2024 Assigned GA 10 w + 0 d Assigned KORINA: 11/24/2024 Biometry Extended GS 75.0 mm -/- >99% Darion GS D2 78.0 mm GS D3 72.0 mm Assessment Gestational sac: visualized GS 75.0 mm -/- >99% Darion Location: intrauterine GS D2 78.0 mm GS D3 72.0 mm Yolk sac: not visualized Embryo: not visualized Performed By: Sushil Villanueva NP Read By: Sushil Villanueva NP MATERNAL MEDICINE [facility] Radiology Study observation (narrative) [facility] TYPE + SCREEN PRENATALon ABO O Normal [facility] Comment on above: Order Comment: Speci men Type: BLOOD SPECIMEN Ordering Facility: [facility] Address: [address] [place] [address] Performed By: #### T SPN #### [facility] CLIA [id number] [address] [place] [address] [place] Rh Nom (Bld) Positive Normal [facility] Comment on above: Order Comment: Speci men Type: BLOOD SPECIMEN Ordering Facility: [facility] Address: [address] [place] [address] Performed By: #### T SPN #### [facility] CLIA [id number] [address] [place] [address] [place] TYPE AND SCREEN EXPIRATION 05/01/2024 23:59 Normal [facility] Comment on above: Order Comment: Speci men Type: BLOOD SPECIMEN Ordering Facility: [facility] Address: [address] [place] [address] Performed By: #### T SPN #### [facility] CLIA [id number] [address] [place] [address] [place] hCG Titer Quant., Serumon HCG QUANT. 787 mIU/mL High 1-3 [facility] Comment on above: Result Comment: hCG levels with Gestational Age Gestational Age hCG mIU/mL (IU/L) 0.2 - 1 week 5 - 50 1-2 weeks 50 - 500 2-3 weeks 100 - 5000 3-4 weeks 500 - 26938 4-5 weeks 1000 - 09003 5-6 weeks 26052 - 100,000 6-8 weeks 50605 - 200,000 2-3 months 11522 - 100,000 Performed By: #### L 700.8000 ####[facility] [address] [facility] [place], [address] 12 Lead EKGon 04-03-2024 12 Lead EKG [facility] [address] [place] [address] 12 Lead EKG 04/03/24 0641 MR#: [id number] Acct: [id number] Name: LISA MESA Rep #: [id number] : 1995 29 From: Hero Mcadams MD Attending Dr: Status: DEP ER Ordering Dr: eRné Mohan MD Date: 04/03/24 Location: ED Sex: F UTD Admitted: Test Reason : GEN ILLNESS Blood Pressure : / mmHG Vent. Rate : 083 BPM Atrial Rate : 083 BPM P-R Int : 190 ms QRS Dur : 086 ms QT Int : 372 ms P-R-T Axes : 031 053 030 degrees QTc Int : 437 ms Normal sinus rhythm Normal ECG Confirmed by LOLLY ALONZO, HERO ([id number]), offline editor SHIKHA ESCAMILLA ([id number]) on 04/03/2024 1:56:29 PM Referred By: Confirmed By:HERO MCADAMS MD 04/03/24 1356 Date Hero Mcadams MD CC: Dr. René Mohan MD; No Primary Care Physician Signed Normal [facility] CBC W/Diff, Automatedon Absolute Lymph 2.23 X10 3/uL Normal 0.83-4.51 [facility] Comment on above: Performed By: #### L 100.0100, L700.8000 ####[facility] [address] [place], [address] Absolute Neut 2.2 X10 3/uL Normal 2.0-7.7 [facility] Comment on above: Performed By: #### L 100.0100, L700.8000 ####[facility] [address] [place], [address] Basophils/100 WBC (Bld) 0.2 % Normal 0-1 [facility] Comment on above: Performed By: #### L 100.0100, L700.8000 ####[facility] [address] [place], [address] Eosinophils/100 WBC (Bld) 2.0 % Normal 0-5 [facility] Comment on above: Performed By: #### L 100.0100, L700.8000 ####[facility] [address] [place], [address] Erythrocyte distribution width (RBC) [Ratio] 17.5 % High 11.6-14.6 [facility] Comment on above: Performed By: #### L 100.0100, L700.8000 ####[facility] [address] [place], [address] Hematocrit (Bld) [Volume fraction] 36.1 % Low 37-47 [facility] Comment on above: Performed By: #### L 100.0100, L700.8000 ####[facility] [address] [place], [address] Hemoglobin (Bld) [Mass/Vol] 11.5 g/dL Low 12.0-15.0 [facility] Comment on above: Performed By: #### L 100.0100, L700.8000 ####[facility] [address] [place], [address] IG% 0.200 Normal 0.0-0.9 [facility] Comment on above: Result Comment: IG% - Immature Granulocytes (promyelocytes, myelocytes and metamyelocytes) > 1% indicates that a LEFT SHIFT is Present. Performed By: #### L 100.0100, L700.8000 ####[facility] [address] [place], [address] Lymphocytes/100 WBC (Bld) 44.2 % High 19-41 [facility] Comment on above: Performed By: #### L 100.0100, L700.8000 ####[facility] [address] [place], [address] MCH (RBC) [Entitic mass] 27.1 pg Normal 27.0-32.0 [facility] Comment on above: Performed By: #### L 100.0100, L700.8000 ####[facility] [address] [place], [address] MCHC (RBC) [Mass/Vol] 31.9 g/dL Low 32-36 [facility] Comment on above: Performed By: #### L 100.0100, L700.8000 ####[facility] [address] [place], [address] MCV (RBC) [Entitic vol] 84.9 fL Normal 81-99 [facility] Comment on above: Performed By: #### L 100.0100, L700.8000 ####[facility] [address] [place], [address] Monocytes/100 WBC (Bld) 10.9 % High 0-10 [facility] Comment on above: Performed By: #### L 100.0100, L700.8000 ####[facility] [address] [place], [address] Neutrophils/100 WBC (Bld) 42.5 % Low 47-70 [facility] Comment on above: Performed By: #### L 100.0100, L700.8000 ####[facility] [address] [place], [address] Nucleated RBC (Bld) [#/Vol] 0 10*3/uL Normal 0-5 [facility] Comment on above: Performed By: #### L 100.0100, L700.8000 ####[facility] [address] [place], [address] Platelet mean volume (Bld) [Entitic vol] 11.2 fL Normal 6.2-12.0 [facility] Comment on above: Performed By: #### L 100.0100, L700.8000 ####[facility] [address] [place], [address] Platelets (Bld) [#/Vol] 167 10*3/uL Normal 150-450 [facility] Comment on above: Performed By: #### L 100.0100, L700.8000 ####[facility] [address] [place], [address] RBC (Bld) [#/Vol] 4.25 10*6/uL Normal 4.2-5.4 [facility] Comment on above: Performed By: #### L 100.0100, L700.8000 ####[facility] [address] [place], [address] RDW SD 54.1 fl High 35.1-43.9 [facility] Comment on above: Performed By: #### L 100.0100, L700.8000 ####[facility] [address] [place], [address] WBC (Bld) [#/Vol] 5.1 10*3/uL Normal 4.4-11.0 [facility] Comment on above: Performed By: #### L 100.0100, L700.8000 ####[facility] [address] [place], [address] Comprehensive Metabolic Prof ilon 04-03-2024 Albumin [Mass/Vol] 3.5 g/dL Normal 3.2-5.0 [facility] Comment on above: Performed By: #### L 500.4050 ####[facility] [address] [place], [address] Albumin/Globulin [Mass ratio] 1.0 {ratio} Normal 0.9-2.4 [facility] Comment on above: Performed By: #### L 500.4050 ####[facility] [address] [place], [address] ALK P 50 U/L Normal 45-117 [facility] Comment on above: Performed By: #### L 500.4050 ####[facility] [address] [place], [address] ALT [Catalytic activity/Vol] 17 U/L Normal 13-56 [facility] Comment on above: Performed By: #### L 500.4050 ####[facility] [address] [place], [address] AST [Catalytic activity/Vol] 16 U/L Normal 15-37 [facility] Comment on above: Performed By: #### L 500.4050 ####[facility] [address] [place], [address] Bilirubin [Mass/Vol] 0.10 mg/dL Low 0.20-1.00 [facility] Comment on above: Result Comment: For patients on eltrombopag therapy, use of Dimension [place] TBIL is not recommended. Performed By: #### L 500.4050 ####[facility] [address] [place], [address] BUN/CRE 9.4 RATIO Low 10-20 [facility] Comment on above: Performed By: #### L 500.4050 ####[facility] [address] [place], [address] CA,Total 8.8 mg/dL Normal 8.5-10.1 [facility] Comment on above: Performed By: #### L 500.4050 ####[facility] [address] [place], [address] Chloride [Moles/Vol] 106 mmol/L Normal 98-107 [facility] Comment on above: Performed By: #### L 500.4050 ####[facility] [address] [place], [address] CO2 [Moles/Vol] 25.0 mmol/L Normal 21.0-32.0 [facility] Comment on above: Performed By: #### L 500.4050 ####[facility] [address] [place], [address] Creatinine [Mass/Vol] 0.74 mg/dL Normal 0.55-1.02 [facility] Comment on above: Result Comment: The validity of the calculated GFR GFRAA in patients over 70 years has not been determined. Clinical correlation is essential. Performed By: #### L 500.4050 ####[facility] [address] [place], [address] ECRCL 141.89 ml/min Normal [facility] Comment on above: Performed By: #### L 500.4050 ####[facility] [address] [place], [address] EST GFR - AA 118 mL/min Normal >60 [facility] Comment on above: Result Comment: Afri can [place] GFR Calc Performed By: #### L 500.4050 ####[facility] [address] [place], [address] GAP 5 Normal 5-15 [facility] Comment on above: Performed By: #### L 500.4050 ####[facility] [address] [place], [address] GFR/1.73 sq M.predicted among non-blacks MDRD (S/P/Bld) [Vol rate/Area] 98 mL/min/{1.73_m2} Normal >60 [facility] Comment on above: Result Comment: Non- GFR Calc Performed By: #### L 500.4050 ####[facility] [address] [place], [address] Globulin (S) [Mass/Vol] 3.6 g/dL Normal 2.2-4.2 [facility] Comment on above: Performed By: #### L 500.4050 ####[facility] [address] [place], [address] Glucose [Mass/Vol] 110 mg/dL High 74-106 [facility] Comment on above: Result Comment: Fast ing Glucose result from 100 to 125 mg/dL suggests IMPAIRED HOMEOSTASIS per A.D.A. criteria. Performed By: #### L 500.4050 ####[facility] [address] [place], [address] Potassium [Moles/Vol] 3.7 mmol/L Normal 3.5-5.1 [facility] Comment on above: Performed By: #### L 500.4050 ####[facility] [address] [place], [address] Sodium [Moles/Vol] 136 mmol/L Normal 136-145 [facility] Comment on above: Performed By: #### L 500.4050 ####[facility] [address] [place], [address] T PROT 7.1 g/dL Normal 6.4-8.2 [facility] Comment on above: Performed By: #### L 500.4050 ####[facility] [address] [place], [address] Urea nitrogen [Mass/Vol] 7 mg/dL Normal 7-18 [facility] Comment on above: Performed By: #### L 500.4050 ####[facility] [address] [place], [address] Emergency Department Summary on 04-03-2024 Emergency Department Summary [facility] Medical Records Department [address] [place] [address] Emergency Department Summary 04/03/24 MR#: [id number] Acct: [id number] Name: LISA MESA Evelin Rep #: [id number] : 1995 29 From: René Mohan MD PCP: Care Physician,No Primary Status:REG ER Location: ED ADDENDUM by Dr. Harjit Guerin DO on 04/03/24 at 1010 Patient case was signed out to me from previous provider Patient did test positive for COVID-19 , patient's ultrasound was reviewed and showed a small fluid collection in the endometrium of the uterine fundus might represent early intrauterine gestation, however appearance is nonspecific. There is no positive findings for ectopic and the study however ectopic cannot be excluded in the absence of a definitively demonstrated intrauterine gestation they are recommending serial quantitative hCGs. I did call and discussed the case with Dr. Maurice as she is on for no doc. Patient will be referred to her for further evaluation management. She was encouraged to have a repeat beta-hCG quantitative level redrawn in 2 days which order was provided for her. Patient was already noted to be on a she is advised to use this. She was notified that she did test positive for COVID- 19 as well. Patient was encouraged return for worsening symptoms or any concerns. She would like to go home all question concerns answered discharged home in stable condition. 04/03/24 1010 Cosigner Signature (if applicable): cc: No Primary Care Physician * Signed HPI History of Present Illness Chief Complaint: General Illness Narrative Narrative: 29-year-old female presents with multiple somatic complaints, stating that yesterday, she began having a runny nose and she has sick contacts in her kids. She also recently found out that she was . She is unsure of her last menstrual period but thinks that it was February 17, approximately a month and a half ago. She denies any vaginal bleeding or pelvic pressure or pain, but states she had cramping. She believes she is a G7, P5 as she did a home test that was positive. She is now far along she is in her . She presents today because she states that she awoke this morning at 5 AM, approximately an hour and a half ago and had a fast, pounding heart rate. She states she still feels like her heart is racing. She is also diabetic and takes metformin 500 mg daily. She states with her last they changed her to insulin because she had gestational diabetes, but she has not followed up with an GOVERNMENT CLERK yet. [facility] Medical History Anxiety Paresthesias Cervical radiculopathy Cervicalgia Anxiety Home Medications ???Medication ???Instructions ???Recorded ???Last Taken ???Type duloxetine 30 mg capsule,delayed 30 mg PO DAILY #30 caps 06/01/21 Unknown Rx release (Cymbalta) duloxetine 30 mg capsule,delayed 30 mg PO DAILY #7 caps 06/09/21 Unknown Rx release duloxetine 60 mg capsule,delayed 60 mg PO DAILY #30 caps 06/09/21 Unknown Rx release ferrous sulfate 325 mg (65 mg PO 04/03/24 Unknown History iron) tablet (FeroSul) metformin 500 mg tablet 500 mg PO DAILY 04/03/24 Unknown History Allergy/AdvReac Type Severity Reaction Status Date / Time acetaminophen (From Vicodin) Allergy Hives Verified 04/03/24 06:10 hydrocodone (From Vicodin) Allergy Hives Verified 04/03/24 06:10 Family History Other Cancer Diabetes Seizures Social History Smoking Status: Current every day smoker tobacco type: cigarettes Tobacco: How many years used: 6 second hand exposure: Yes alcohol intake: current alcohol intake frequency: holidays/special occasions only substance use type: former substance user Date of last use: used some marijuana in the past ROS ROS ED ROS Narrative Constitutional: No fever, no chills. HEENT: No sore throat. No neck pain. No loss of vision. Positive nasal congestion and rhinorrhea. Cardiovascular: No chest pain. Positive fast, pounding heart rate/palpitations. No pedal edema. Respiratory: No cough, no shortness of breath. Abdominal: No abdominal pain. Cramping. No nausea. No vomiting. Genitourinary: No dysuria. No hematuria. Musculoskeletal: No myalgias. No arthralgias. Neurologic: Positive headaches. No dizziness. No lightheadedness. Skin: No rash. No change in color. Psychiatric: No depression. No anxiety. EXAM Physical Exam Narrative Exam Narrative: Afebrile. Vital signs noted. HEENT: Normocephalic. Atraumatic. PERRL, EOMI. Neck soft and supple. No point tenderness or step off. Alternating rhinorrhea and nasal congestion. Cardiovascular: Regular rate and rhythm. No (more content not included)... Normal [facility] M100.678on 04-03-2024 M100.678 Copy of report sent to Infection Control Printer [id number] 04/03/24 0747 BLUCAS. FLUABV+SARS-CoV-2+RSV Pnl Resp HUNG+probe SARS-CoV-2 (COVID 19) A Positive A INFLUENZA A Negative INFLUENZA B Negative RSV PCR Negative SARS-CoV-2 (COVID 19 PCR) Normal [facility] Comment on above: Performed By: #### M 100.678, L400.7600, L400.0001 #### [facility] [address] [place], [address] ,Urineon 04-03-2024 Beta HCG ( test) Ql (U) Positive Abnormal [facility] Comment on above: Order Comment: CLEAN CATCH Result Comment: PREG LAMIN TEST is *POSITIVE* Performed By: #### M 100.678, L400.7600, L400.0001 #### [facility] [address] [place], [address] Transvaginal w/Preg USon Transvaginal w/Preg US [facility] [address] [place] [address] Transvaginal w/Preg US MR#: [id number] Acct: [id number] Name: LISA MESA Evelin Rep #: [id number] : 1995 F 29 From: Zack de la torre MD PCP: Care Physician,No Primary Status: REG ER Study: Transvaginal w/Preg US Date of Exam: 04/03/24 Exam# [id number] Ordering Dr: René Mohan [place] [id number] EXAM: US , TRANSVAGINAL CLINICAL INDICATION: Elevated Beta hcg Elevated Beta hcg TECHNIQUE: Real-time transvaginal obstetrical ultrasound of the maternal pelvis and a first trimester with image documentation. Transvaginal imaging was used for better evaluation of the fetus and adnexa. COMPARISON: No relevant prior studies available. FINDINGS: GESTATION: There is a 0.5 x 1.0 x 0.6 cm fluid collection in the endometrium of the uterine fundus which questionably represents an early intrauterine gestational sac. This is too small for age estimation. There is no demonstrated pole or yolk sac. PLACENTA/AMNIOTIC FLUID: Cannot be adequately evaluated due to the early gestational age. UTERUS/CERVIX: The uterus is anteverted and measures 12.3 x 9.3 x 7.4 cm. The endometrium is hyperechoic and is thickened, measuring 2.4 cm. No myometrial mass. OVARIES: Ovary was not successfully visualized. The left ovary measures 3.4 x 2.0 x 1.9 cm. There is vascular flow in the left ovary. FREE FLUID: No free fluid. US/Transvaginal w/Preg US IMPRESSION: 1. Small fluid collection in the endometrium of the uterine fundus might represent an early intrauterine gestation, however, the appearance is nonspecific.. 2. There are no positive findings for ectopic in this study, however, an occult ectopic cannot be excluded in the absence of a definitively demonstrated intrauterine gestation. Suggest correlation with serial quantitative ? hCG measurements as well as follow-up ultrasound.. Electronically Signed: Zack Carlos MD at 7:55 EDT Reading Location ID and State: [facility] / [place] , Service support , CC: Dr. René Mohan MD; No Primary Care Physician Material Mover: Signed Normal [facility] Urinalysis, Completeon 04-03 EPI,SQUAMOUS 0-5 SEEN Normal 5-10 [facility] Comment on above: Order Comment: CLEAN CATCH Performed By: #### M 100.678, L400.7600, L400.0001 #### [facility] [address] [place], [address] BACTERIA 0 SEEN Normal None Seen [facility] Comment on above: Order Comment: CLEAN CATCH Performed By: #### M 100.678, L400.7600, L400.0001 #### [facility] [address] [place], [address] Mucus Ql (Urine sed) 0 SEEN Normal [facility] Comment on above: Order Comment: CLEAN CATCH Performed By: #### M 100.678, L400.7600, L400.0001 #### [facility] [address] [place], [address] RBC 0 SEEN Normal 0-5 [facility] Comment on above: Order Comment: CLEAN CATCH Performed By: #### M 100.678, L400.7600, L400.0001 #### [facility] [address] [place], [address] WBC 0 SEEN Normal 0-5 [facility] Comment on above: Order Comment: CLEAN CATCH Performed By: #### M 100.678, L400.7600, L400.0001 #### [facility] [address] [place], [address] hCG Titer Quant., Serumon HCG QUANT. 434 mIU/mL High 1-3 [facility] Comment on above: Result Comment: hCG levels with Gestational Age Gestational Age hCG mIU/mL (IU/L) 0.2 - 1 week 5 - 50 1-2 weeks 50 - 500 2-3 weeks 100 - 5000 3-4 weeks 500 - 25296 4-5 weeks 1000 - 53436 5-6 weeks 01195 - 100,000 6-8 weeks 41199 - 200,000 2-3 months 05442 - 100,000 Performed By: #### L 100.0100, L700.8000 ####[facility] [address] [place], [address] A1Con 02-20-2024 Glucose [Mass/Vol] 137 mg/dL Normal [facility] ([place]) Comment on above: Result Comment: Sarah mated Average Glucose calculated by equation ((28.7xA1C)-46.7) Estimated average glucose (eAG) is a calculated value from Hemoglobin A1C and is senior sales representative of the average blood glucose level in the last 2-3 month period. Normal range: less than 114 mg/dL Performed By: #### N GPCR1, CTPCR #### [place] [address] HbA1c (Bld) [Mass fraction] 6.4 % High 4.0-6.0 [facility] ([place]) Comment on above: Performed By: #### N GPCR1, CTPCR #### [place] [address] FT3on 02-20-2024 Free T3 [Mass/Vol] 3.01 pg/mL Normal 2.30-4.20 [facility] ([place]) Comment on above: Performed By: #### F T4, FT3 #### [place] [address] FT4on 02-20-2024 Free T4 [Mass/Vol] 1.02 ng/dL Normal 0.89-1.76 [facility] ([place]) Comment on above: Result Comment: No te - New Reference Range in effect 20 Performed By: #### F T4, FT3 #### [place] [address] .Auto Diffon 02-19-2024 Basophil, Absolute 0.0 10 3/mcL Normal 0.0-0.3 [facility] ([place]) Comment on above: Performed By: #### T SH, CBC, A1C, FE, ANEU, FERR, ADIFF, CMP, GFR, MG #### [place] [address] Basophils/100 WBC (Bld) 0.4 % Normal 0.0-2.5 [facility] ([place]) Comment on above: Performed By: #### T SH, CBC, A1C, FE, ANEU, FERR, ADIFF, CMP, GFR, MG #### [place] [address] Eosinophil, Absolute 0.2 10 3/mcL Normal 0.0-0.7 [facility] ([place]) Comment on above: Performed By: #### T SH, CBC, A1C, FE, ANEU, FERR, ADIFF, CMP, GFR, MG #### [place] [address] Eosinophils/100 WBC (Bld) 2.7 % Normal 0.0-6.0 [facility] ([place]) Comment on above: Performed By: #### T SH, CBC, A1C, FE, ANEU, FERR, ADIFF, CMP, GFR, MG #### [address] [address] Lymphocyte, Absolute 2.1 10 3/mcL Normal 0.9-4.3 [facility] ([place]) Comment on above: Performed By: #### T SH, CBC, A1C, FE, ANEU, FERR, ADIFF, CMP, GFR, MG #### [address] [address] Lymphocytes/100 WBC (Bld) 30.6 % Normal 20.0-40.0 [facility] ([place]) Comment on above: Performed By: #### T SH, CBC, A1C, FE, ANEU, FERR, ADIFF, CMP, GFR, MG #### [address] [address] Monocyte, Absolute 0.4 10 3/mcL Normal 0.1-1.4 [facility] ([place]) Comment on above: Performed By: #### T SH, CBC, A1C, FE, ANEU, FERR, ADIFF, CMP, GFR, MG #### [address] [address] Monocytes/100 WBC (Bld) 5.7 % Normal 2.0-13.0 [facility] ([place]) Comment on above: Performed By: #### T SH, CBC, A1C, FE, ANEU, FERR, ADIFF, CMP, GFR, MG #### [address] [address] Neutrophils/100 WBC (Bld) 60.6 % Normal 50.0-75.0 [facility] ([place]) Comment on above: Performed By: #### T SH, CBC, A1C, FE, ANEU, FERR, ADIFF, CMP, GFR, MG #### [address] [address] .GFRon 02-19-2024 GFR >60 Normal [facility] ([place]) Comment on above: Result Comment: GFR Population mean for , Non- Americans Ages 20-29 = 116 mL/min/1.73 sq.m. Ages 30-39 = 107 mL/min/1.73 sq.m. Ages 40-49 = 99 mL/min/1.73 sq.m. Ages 50-59 = 93 mL/min/1.73 sq.m. Ages 60-69 = 85 mL/min/1.73 sq.m. Ages 70+ = 75 mL/min/1.73 sq.m. Chronic Kidney Disease: Less than 60 mL/min/1.73 square meters End Stage Renal Disease: Less than 15 mL/min/1.73 square meters Performed By: #### N GPCR1, CTPCR #### [address] [address] GFR Non- >60 Normal [facility] ([place]) Comment on above: Result Comment: GFR Population mean for , Non- Americans Ages 20-29 = 116 mL/min/1.73 sq.m. Ages 30-39 = 107 mL/min/1.73 sq.m. Ages 40-49 = 99 mL/min/1.73 sq.m. Ages 50-59 = 93 mL/min/1.73 sq.m. Ages 60-69 = 85 mL/min/1.73 sq.m. Ages 70+ = 75 mL/min/1.73 sq.m. Chronic Kidney Disease: Less than 60 mL/min/1.73 square meters End Stage Renal Disease: Less than 15 mL/min/1.73 square meters Performed By: #### N GPCR1, CTPCR #### [address] [address] .NEUABSon 02-19-2024 Neutrophil, Absolute 4.1 10 3/mcL Normal 2.3-8.1 [facility] ([place]) Comment on above: Performed By: #### T SH, CBC, A1C, FE, ANEU, FERR, ADIFF, CMP, GFR, MG #### [address] [address] CBCon 02-19-2024 Erythrocyte distribution width (RBC) [Ratio] 17.6 % High 11.5-15.5 [facility] ([place]) Comment on above: Performed By: #### T SH, CBC, A1C, FE, ANEU, FERR, ADIFF, CMP, GFR, MG #### [place] [address] Hematocrit (Bld) [Volume fraction] 35.4 % Normal 34.0-46.0 [facility] ([place]) Comment on above: Performed By: #### T SH, CBC, A1C, FE, ANEU, FERR, ADIFF, CMP, GFR, MG #### [place] [address] Hgb 11.3 G/dL Low 12.0-16.0 [facility] ([place]) Comment on above: Performed By: #### T SH, CBC, A1C, FE, ANEU, FERR, ADIFF, CMP, GFR, MG #### [place] [address] MCH (RBC) [Entitic mass] 26.5 pg Low 27.0-33.0 [facility] ([place]) Comment on above: Performed By: #### T SH, CBC, A1C, FE, ANEU, FERR, ADIFF, CMP, GFR, MG #### [place] [address] MCHC 32.0 G/dL Normal 32.0-36.0 [facility] ([place]) Comment on above: Performed By: #### T SH, CBC, A1C, FE, ANEU, FERR, ADIFF, CMP, GFR, MG #### [place] [address] MCV (RBC) [Entitic vol] 82.9 fL Normal 80.0-99.0 [facility] ([place]) Comment on above: Performed By: #### T SH, CBC, A1C, FE, ANEU, FERR, ADIFF, CMP, GFR, MG #### [place] [address] Platelet 205 10 3/mcL Normal 150-450 [facility] ([place]) Comment on above: Performed By: #### T SH, CBC, A1C, FE, ANEU, FERR, ADIFF, CMP, GFR, MG #### [address] [address] Platelet mean volume (Bld) [Entitic vol] 9.5 fL Normal 6.6-10.5 [facility] ([place] Comment on above: Performed By: #### T SH, CBC, A1C, FE, ANEU, FERR, ADIFF, CMP, GFR, MG #### [place] [id number] RBC 4.27 10 6/mcL Normal 4.10-5.30 [facility] ([place]) Comment on above: Performed By: #### T SH, CBC, A1C, FE, ANEU, FERR, ADIFF, CMP, GFR, MG #### [place] [address] WBC 6.8 10 3/mcL Normal 4.5-10.8 [facility] ([place] Comment on above: Performed By: #### T SH, CBC, A1C, FE, ANEU, FERR, ADIFF, CMP, GFR, MG #### [place] [address] CMPon 02-19-2024 Albumin Level 3.8 G/dL Normal 3.2-4.8 [facility] ([place] Comment on above: Performed By: #### N GPCR1, CTPCR #### [place] [address] Albumin/Globulin [Mass ratio] 1.2 {ratio} Normal 0.9-1.6 [facility] ([place]) Comment on above: Performed By: #### N GPCR1, CTPCR #### [address] [address] ALP [Catalytic activity/Vol] 63 U/L Normal 38-126 [facility] ([place]) Comment on above: Performed By: #### N GPCR1, CTPCR #### [place] [id number] ALT [Catalytic activity/Vol] 17 U/L Normal 10-49 [facility] ([place]) Comment on above: Performed By: #### N GPCR1, CTPCR #### [address] [address] AST [Catalytic activity/Vol] 14 U/L Normal 8-34 [facility] ([place]) Comment on above: Performed By: #### N GPCR1, CTPCR #### [place] [address] Bili Total 0.30 mg/dL Normal 0.20-1.20 [facility] ([place]) Comment on above: Result Comment: Use of this assay is not recommended for patients undergoing treatment with eltrombopag due to the potential for falsely elevated results. Performed By: #### N GPCR1, CTPCR #### [place] [address] BUN/Creatinine Ratio 14.3 ratio Normal 10.0-22.0 [facility] ([place]) Comment on above: Performed By: #### N GPCR1, CTPCR #### [place] [address] Calcium [Mass/Vol] 9.9 mg/dL Normal 8.7-10.4 [facility] ([place]) Comment on above: Performed By: #### N GPCR1, CTPCR #### [place] [address] Chloride [Moles/Vol] 108 mmol/L Normal 98-110 [facility] ([place]) Comment on above: Performed By: #### N GPCR1, CTPCR #### [place] [address] CO2 [Moles/Vol] 28 mmol/L Normal 22-32 [facility] ([place]) Comment on above: Performed By: #### N GPCR1, CTPCR #### [place] [address] Creatinine [Mass/Vol] 0.70 mg/dL Normal 0.50-1.20 [facility] ([place]) Comment on above: Performed By: #### N GPCR1, CTPCR #### [place] [address] Electrolyte Balance 3.0 mEq/L Low 4.0-15.0 [facility] ([place]) Comment on above: Performed By: #### N GPCR1, CTPCR #### [address] [address] Globulin 3.3 G/dL Normal 1.5-3.8 [facility] ([place]) Comment on above: Performed By: #### N GPCR1, CTPCR #### [address] [address] Glucose [Mass/Vol] 94 mg/dL Normal 70-110 [facility] ([place]) Comment on above: Performed By: #### N GPCR1, CTPCR #### [address] [address] Potassium [Moles/Vol] 4.3 mmol/L Normal 3.5-5.0 [facility] ([place]) Comment on above: Performed By: #### N GPCR1, CTPCR #### [place] [id number] Sodium [Moles/Vol] 139 mmol/L Normal 136-145 [facility] ([place] Comment on above: Performed By: #### N GPCR1, CTPCR #### [place] [address] Total Protein 7.1 G/dL Normal 5.7-8.2 [facility] ([place]) Comment on above: Result Comment: No te - New Reference Range in effect 20 Performed By: #### N GPCR1, CTPCR #### [address] [address] Urea nitrogen [Mass/Vol] 10.0 mg/dL Normal 8.0-22.0 [facility] ([place]) Comment on above: Performed By: #### N GPCR1, CTPCR #### [address] [address] FEon 02-19-2024 Iron [Mass/Vol] 36 ug/dL Low 50-170 [facility] ([place]) Comment on above: Performed By: #### T SH, CBC, A1C, FE, ANEU, FERR, ADIFF, CMP, GFR, MG #### [address] [address] Michael 02-19-2024 Ferritin [Mass/Vol] 2.7 ng/mL Low 8.0-252.0 [facility] ([place]) Comment on above: Performed By: #### T SH, CBC, A1C, FE, ANEU, FERR, ADIFF, CMP, GFR, MG #### [facility] [address] [place] [address] LABORATORYOrdered By: SYSTEM SYSTEM on 02-19-2024 Albumin BCP dye [Mass/Vol] 3.8 G/dL Normal 3.2 - 4.8 G/dL ADM SS Albumin/Globulin [Mass ratio] 1.2 {ratio} Normal 0.9 - 1.6 ratio AH ADM SS ALP [Catalytic activity/Vol] 63 U/L Normal 38 - 126 U/L ADM SS ALT No additional P-5'-P [Catalytic activity/Vol] 17 U/L Normal 10 - 49 U/L ADM SS AST [Catalytic activity/Vol] 14 U/L Normal 8 - 34 U/L ADM SS Basophils (Bld) [#/Vol] 0.0 103/mcL Normal 0.0 - 0.3 10^3/mcL Workflow SS Basophils/100 WBC (Bld) 0.4 % Normal 0.0 - 2.5 % Workflow SS Bilirubin [Mass/Vol] 0.30 mg/dL Normal 0.20 - 1.20 mg/dL AH ADM SS Comment on above: Interpretive Data: U se of this assay is not recommended for patients undergoing treatment with eltrombopag due to the potential for falsely elevated results. Calcium [Mass/Vol] 9.9 mg/dL Normal 8.7 - 10. 4 mg/dL AH ADM SS Chloride [Moles/Vol] 108 mmol/L Normal 98 - 11 0 mEq/L AH ADM SS CO2 [Moles/Vol] 28 mmol/L Normal 22 - 32 mEq/L AH ADM SS Creatinine [Mass/Vol] 0.70 mg/dL Normal 0.50 - 1.20 mg/dL AH ADM SS Electrolyte Balance 3.0 mEq/L Low 4.0 - 15 .0 mEq/L ADM SS Eosinophils (Bld) [#/Vol] 0.2 103/mcL Normal 0.0 - 0.7 10^3/mcL Workflow SS Eosinophils/100 WBC (Bld) 2.7 % Normal 0.0 - 6.0 % Workflow SS Erythrocyte distribution width (RBC) [Ratio] 17.6 % High 11.5 - 15.5 % Workflow SS Ferritin [Mass/Vol] 2.7 ng/mL Low 8.0 - 25 2.0 ng/mL ADM SS GFR/1.73 sq M.predicted among blacks MDRD (S/P/Bld) [Vol rate/Area] ml/min/1.73sqm Invalid Interpretation Code flo.do Chemistry S Comment on above: Interpretive Data: GFR Population mean for , Non- Americans Ages 20-29 = 116 mL/min/1.73 sq.m. Ages 30-39 = 107 mL/min/1.73 sq.m. Ages 40-49 = 99 mL/min/1.73 sq.m. Ages 50-59 = 93 mL/min/1.73 sq.m. Ages 60-69 = 85 mL/min/1.73 sq.m. Ages 70+ = 75 mL/min/1.73 sq.m. Chronic Kidney Disease: Less than 60 mL/min/1.73 square meters End Stage Renal Disease: Less than 15 mL/min/1.73 square meters GFR/1.73 sq M.predicted among non-blacks MDRD (S/P/Bld) [Vol rate/Area] ml/min/1.73sqm Invalid Interpretation Code flo.do Chemistry S Comment on above: Interpretive Data: GFR Population mean for , Non- Americans Ages 20-29 = 116 mL/min/1.73 sq.m. Ages 30-39 = 107 mL/min/1.73 sq.m. Ages 40-49 = 99 mL/min/1.73 sq.m. Ages 50-59 = 93 mL/min/1.73 sq.m. Ages 60-69 = 85 mL/min/1.73 sq.m. Ages 70+ = 75 mL/min/1.73 sq.m. Chronic Kidney Disease: Less than 60 mL/min/1.73 square meters End Stage Renal Disease: Less than 15 mL/min/1.73 square meters Globulin 3.3 G/dL Normal 1.5 - 3.8 G/dL ADM SS Glucose [Mass/Vol] 94 mg/dL Normal 70 - 110 mg/dL ADM SS Glucose [Mass/Vol] 137 mg/dL Invalid Interpretation Code AH Auto Chem SS Comment on above: Interpretive Data: E stimated average glucose (eAG) is a calculated value from Hemoglobin A1C and is senior sales representative of the average blood glucose level in the last 2-3 month period. Normal range: less than 114 mg/dL HbA1c (Bld) [Mass fraction] 6.4 % High 4.0 - 6.0 % AH Auto Chem SS Hematocrit (Bld) [Volume fraction] 35.4 % Normal 34.0 - 46.0 % AH Workflow SS Hemoglobin (Bld) [Mass/Vol] 11.3 G/dL Low 12.0 - 16.0 G/dL AH Workflow SS Iron [Mass/Vol] 36 ug/dL Low 50 - 170 mcg/dL ADM SS Lymphocytes (Bld) [#/Vol] 2.1 103/mcL Normal 0.9 - 4.3 10^3/mcL AH Workflow SS Lymphocytes/100 WBC (Bld) 30.6 % Normal 20.0 - 40.0 % AH Workflow SS Magnesium [Mass/Vol] 1.9 mg/dL Normal 1.6 - 2 .4 mg/dL ADM SS MCH (RBC) [Entitic mass] 26.5 pg Low 27.0 - 33.0 pg AH Workflow SS MCHC 32.0 G/dL Normal 32.0 - 36.0 G/dL AH Workflow SS MCV (RBC) [Entitic vol] 82.9 fL Normal 80.0 - 99.0 fL AH Workflow SS Monocytes (Bld) [#/Vol] 0.4 103/mcL Normal 0.1 - 1.4 10^3/mcL AH Workflow SS Monocytes/100 WBC (Bld) 5.7 % Normal 2.0 - 13.0 % AH Workflow SS Neutrophils (Bld) [#/Vol] 4.1 103/mcL Normal 2.3 - 8.1 10^3/mcL AH Workflow SS Neutrophils/100 WBC (Bld) 60.6 % Normal 50.0 - 75.0 % AH Workflow SS Platelet mean volume (Bld) [Entitic vol] 9.5 fL Normal 6.6 - 10.5 fL AH Workflow SS Platelets (Bld) [#/Vol] 205 103/mcL Normal 150 - 450 10^3/mcL AH Workflow SS Potassium [Moles/Vol] 4.3 mmol/L Normal 3.5 - 5.0 mEq/L ADM SS Protein [Mass/Vol] 7.1 G/dL Normal 5.7 - 8.2 G/dL ADM SS Comment on above: Interpretive Data: * *Note - New Reference Range in effect 20 RBC (Bld) [#/Vol] 4.27 106/mcL Normal 4.10 - 5.3 0 10^6/mcL Workflow SS Sodium [Moles/Vol] 139 mmol/L Normal 136 - 145 mEq/L ADM SS TSH Qn 0.121 mIU/mL Low 0.550 - 4.780 mIU/mL ADM SS Comment on above: Interpretive Data: * *Note - New Reference Range in effect 20 Urea nitrogen [Mass/Vol] 10.0 mg/dL Normal 8.0 - 22.0 mg/dL ADM SS Urea nitrogen/Creatinine [Mass ratio] 14.3 ratio Normal 10.0 - 22.0 ratio ADM SS WBC (Bld) [#/Vol] 6.8 103/mcL Normal 4.5 - 10.8 10^3/mcL Workflow SS MGon 02-19-2024 Magnesium [Mass/Vol] 1.9 mg/dL Normal 1.6-2.4 [facility] ([place]) Comment on above: Performed By: #### N GPCR1, CTPCR #### [place] [address] TSHon 02-19-2024 TSH 0.121 mIU/mL Low 0.550-4.780 [facility] ([place]) Comment on above: Result Comment: No te - New Reference Range in effect 20 Performed By: #### N GPCR1, CTPCR #### [place] [address] CTPCRon 02-07-2024 C. trachomatis Interp Normal See CT Interp N [facility] ([place]) Comment on above: Result Comment: C. t rachomatis DNA not detected. Specimen is presumptive negative for C. trachomatis. A negative result does not preclude C. trachomatis infection because results depend on adequate specimen collection, absence of inhibitors, and sufficient DNA to be detected. See CT Interp N Performed By: #### N GPCR1, CTPCR #### [address] [address] C.trachomatis PCR Negative Normal Negative [facility] ([place]) Comment on above: Result Comment: Mole cular (PCR) assay performed on the [employer] 4800 system. Performed By: #### N GPCR1, CTPCR #### [address] [address] [employer]lam Source Cervix Normal [facility] ([place]) Comment on above: Performed By: #### N GPCR1, CTPCR #### [address] [address] [id number] 02-07-2024 GC PCR Source Cervix Normal [facility] ([place]) Comment on above: Performed By: #### N GPCR1, CTPCR #### [address] [address] N. gonorrhoeae (PCR) Negative Normal Negative [facility] ([place]) Comment on above: Result Comment: Mole cular (PCR) assay performed on the [employer] 4800 System. Performed By: #### N GPCR1, CTPCR #### [address] [address] N. gonorrhoeae Interp Normal See NG Interp N [facility] ([place]) Comment on above: Result Comment: N. g onorrhoeae DNA not detected. Specimen is presumptive negative for N. gonorrhoeae. A negative result does not preclude Neisseria gonorrhoeae infection because results depend on adequate specimen collection, absence of inhibitors, and sufficient DNA to be detected. See NG Interp N Performed By: #### N GPCR1, CTPCR #### [address] [address] CBC panel Auto (Bld)on 02-04 Erythrocyte distribution width (RBC) [Ratio] 15.8 % High 11.5-15.0 [facility] Comment on above: Order Comment: Speci men Type: BLOOD SPECIMEN Ordering Facility: [facility] Address: [address] [place] [address] [place] [address] Performed By: #### 2 432-2, , HCG #### [facility] CLIA [id number] [address] [place], [place] [id number] [place] Hematocrit (Bld) [Volume fraction] 32.8 % Low 36.0-46.0 [facility] Comment on above: Order Comment: Speci men Type: BLOOD SPECIMEN Ordering Facility: [facility] Address: [address] [place] [address] Performed By: #### 2 4320-2, , HCG #### [facility] CLIA [id number] [address] [place] [address] [place] Hemoglobin (Bld) [Mass/Vol] 10.6 g/dL Low 11.5-15.5 [facility] Comment on above: Order Comment: Speci men Type: BLOOD SPECIMEN Ordering Facility: [facility] Address: [address] [place] [address] Performed By: #### 2 , HCG #### [facility] CLIA [id number] [address] [place] [address] [place] MCH (RBC) [Entitic mass] 27.2 pg Normal 26.0-34.0 [facility] Comment on above: Order Comment: Speci men Type: BLOOD SPECIMEN Ordering Facility: [facility] Address: [address] [place] [address] Performed By: #### 2 2, , HCG #### [facility] [facility] CLIA [id number] [address] [place] [address] [place] MCHC (RBC) [Mass/Vol] 32.3 g/dL Normal 30.5-36.0 [facility] Comment on above: Order Comment: Speci men Type: BLOOD SPECIMEN Ordering Facility: [facility] Address: [address] [place] [address] Performed By: #### 2 4322, , HCG #### [facility] CLIA [id number] [address] [place] [address] [place] MCV (RBC) [Entitic vol] 84.1 fL Normal 80.0-100.0 [facility] Comment on above: Order Comment: Speci men Type: BLOOD SPECIMEN Ordering Facility: [facility] Address: [address] [place] [address] Performed By: #### 2 4321-2, , HCG #### [facility] CLIA [id number] [address] [place], [place] [address] [place] Nucleated RBC (Bld) [#/Vol] 10*3/uL Normal <0.01 [facility] Comment on above: Order Comment: Speci men Type: BLOOD SPECIMEN Ordering Facility: [facility] Address: [address] [place] [address] Performed By: #### 2 4321-2, , HCG #### [facility] CLIA [id number] [address] [place], [place] [address] [place] Platelet mean volume (Bld) [Entitic vol] 10.8 fL Normal 9.0-12.7 [facility] Comment on above: Order Comment: Speci men Type: BLOOD SPECIMEN Ordering Facility: [facility] Address: [address] [place] [address] Performed By: #### 2 4320-2, , HCG #### [facility] CLIA [id number] [address] [place], [place] [address] [place] Platelets (Bld) [#/Vol] 202 10*3/uL Normal 150-400 [facility] Comment on above: Order Comment: Speci men Type: BLOOD SPECIMEN Ordering Facility: [facility] Address: [address] [place] [address] Performed By: #### 2 4320-2, , HCG #### [facility] CLIA [id number] [address] [place] [address] [place] RBC (Bld) [#/Vol] 3.90 10*6/uL Normal 3.90-5.20 [facility] Comment on above: Order Comment: Speci men Type: BLOOD SPECIMEN Ordering Facility: [facility] Address: [address] [place] [address] Performed By: #### 2 4321-2, , HCG #### [facility] CLIA [id number] [address] [place], [place] [address] [place] WBC (Bld) [#/Vol] 8.22 10*3/uL Normal 3.70-11.00 [facility] Comment on above: Order Comment: Speci men Type: BLOOD SPECIMEN Ordering Facility: [facility] Address: [address] [place] [address] Performed By: #### 2 4321-2, , HCG #### [facility] CLIA [id number] [address] [place], [place] [address] [facility] Comprehensive metabolic 2000 panelon 02-05-2024 Albumin [Mass/Vol] 3.8 g/dL Normal 3.2-5.0 [facility] Comment on above: Order Comment: Speci men Type: BLOOD SPECIMEN Ordering Facility: [facility] Address: [address] [place] [address] Performed By: #### 2 432-2, , HCG #### [facility] CLIA [id number] [address] [place] [address] [place] ALP [Catalytic activity/Vol] 63 U/L Normal 45-117 [facility] Comment on above: Order Comment: Speci men Type: BLOOD SPECIMEN Ordering Facility: [facility] Address: [address] [place] [address] Performed By: #### 2 4321-2, , HCG #### [facility] CLIA [id number] [address] [place], [place] [address] [place] ALT [Catalytic activity/Vol] 12 U/L Low 13-61 [facility] Comment on above: Order Comment: Speci men Type: BLOOD SPECIMEN Ordering Facility: [facility] Address: [address] [place] [address] Result Comment: Resu lts may be falsely depressed after the administration of Sulfasalazine and/or Sulfapyridine. Performed By: #### 2 4321-2, , HCG #### [facility] CLIA [id number] [address] [place], [place] [address] [place] Anion gap [Moles/Vol] 4 mmol/L Low 5-16 [facility] Comment on above: Order Comment: Speci men Type: BLOOD SPECIMEN Ordering Facility: [facility] Address: [address] [place] [address] Performed By: #### 2 4321-2, , HCG #### [facility] CLIA [id number] [address] [place] [address] [place] AST [Catalytic activity/Vol] 14 U/L Normal 8-34 [facility] Comment on above: Order Comment: Speci men Type: BLOOD SPECIMEN Ordering Facility: [facility] Address: [address] [place] [address] Result Comment: Resu lts may be falsely depressed after the administration of Sulfasalazine and/or Sulfapyridine. Performed By: #### 2 4321-2, , HCG #### [facility] CLIA [id number] [address] [place] [address] [place] Bilirubin [Mass/Vol] 0.2 mg/dL Normal 0.2-1.0 [facility] Comment on above: Order Comment: Speci men Type: BLOOD SPECIMEN Ordering Facility: [facility] Address: [address] [place] [address] Performed By: #### 2 4321-2, , HCG #### [facility] CLIA [id number] [address] [place], [place] [address] [place] Calcium [Mass/Vol] 9.3 mg/dL Normal 8.5-10.5 [facility] Comment on above: Order Comment: Speci men Type: BLOOD SPECIMEN Ordering Facility: [facility] Address: [address] [place] [address] Performed By: #### 2 4321-2, , HCG #### [facility] CLIA [id number] [address] [place] [address] [place] Chloride [Moles/Vol] 111 mmol/L High 98-107 [facility] Comment on above: Order Comment: Speci men Type: BLOOD SPECIMEN Ordering Facility: [facility] Address: [address] [place] [address] Performed By: #### 2 4321-2, , HCG #### [facility] CLIA [id number] [address] [place], [place] [address] [place] CO2 [Moles/Vol] 24 mmol/L Normal 21-32 [facility] Comment on above: Order Comment: Speci men Type: BLOOD SPECIMEN Ordering Facility: [facility] Address: [address] [place] [address] Performed By: #### 2 432-2, , HCG #### [facility] CLIA [id number] [address] [place], [place] [address] [place] Creatinine [Mass/Vol] 0.71 mg/dL Normal 0.51-0.95 [facility] Comment on above: Order Comment: Speci men Type: BLOOD SPECIMEN Ordering Facility: [facility] Address: [address] [place] [address] Result Comment: Kelsey ents receiving either N-Acetylcysteine (NAC) or Metamizole prior to venipuncture, may have falsely depressed results. Performed By: #### 2 4321-2, , HCG #### [facility] CLIA [id number] [address] [place], [place] [address] [place] Creatinine and Glomerular filtration rate.predicted panel (S/P/Bld) 119 mL/min/1.73m??? Normal >=60 [facility] Comment on above: Order Comment: Speci men Type: BLOOD SPECIMEN Ordering Facility: [facility] Address: [address] [place] [address] Result Comment: Sarah mated Glomerular Filtration Rate (eGFR) is calculated using the 2020 CKD-EPI creatinine equation. This equation utilizes serum creatinine, sex, and age as parameters. The creatinine assay has traceable calibration to isotope dilution-mass spectrometry. Refer to KDIGO guidelines for clinical interpretation. In patients with unstable renal function, e.g. those with acute kidney injury, the eGFR may not accurately reflect actual GFR. Performed By: #### 2 432-2, , HCG #### [facility] CLIA [id number] [address] [place], [place] [address] [place] Glucose [Mass/Vol] 116 mg/dL High 70-100 [facility] Comment on above: Order Comment: Specalesia men Type: BLOOD SPECIMEN Ordering Facility: [facility] Address: [address] [place] [address] Result Comment: The [place] [employer] (ADA) provides guidance for cutoff values for fasting glucose and random glucose. The ADA defines fasting as no caloric intake for at least 8 hours. Fasting plasma glucose results between 100 to 125 mg/dL indicate increased risk for diabetes (prediabetes). Fasting plasma glucose results greater than or equal to 126 mg/dL meet the criteria for diagnosis of diabetes. In the absence of unequivocal hyperglycemia, results should be confirmed by repeat testing. In a patient with classic symptoms of hyperglycemia or hyperglycemic crisis, random plasma glucose results greater than or equal to 200 mg/dL meet the criteria for diagnosis of diabetes. Reference: Standards of Medical Care in Diabetes 2016, [place] [employer]. Diabetes Care. 2016.39(Suppl 1). Results may be falsely elevated after the administration of Sulfapyridine. Results may be falsely depressed after the administration of Sulfasalazine. Performed By: #### 2 432-, , HCG #### [facility] CLIA [id number] [address] [place], [place] [address] [place] Potassium [Moles/Vol] 4.1 mmol/L Normal 3.5-5.1 [facility] Comment on above: Order Comment: Jessica rojo Type: BLOOD SPECIMEN Ordering Facility: [facility] Address: [address] [place] [address] Performed By: #### 2 432-2, , HCG #### [facility] CLIA [id number] [address] [place] [address] [place] Protein [Mass/Vol] 6.9 g/dL Normal 6.0-8.5 [facility] Comment on above: Order Comment: Speci men Type: BLOOD SPECIMEN Ordering Facility: [facility] Address: [address] [place] [address] Performed By: #### 2 4321-2, 30156-4, HCG #### [facility] CLIA [id number] [address] [place], [place] [address] [place] Sodium [Moles/Vol] 139 mmol/L Normal 136-145 [facility] Comment on above: Order Comment: Speci men Type: BLOOD SPECIMEN Ordering Facility: [facility] Address: [address] [place] [address] Performed By: #### 2 4321-2, , HCG #### [facility] CLIA [id number] [address] [place] [address] [place] Urea nitrogen [Mass/Vol] 10 mg/dL Normal 7-26 [facility] Comment on above: Order Comment: Speci men Type: BLOOD SPECIMEN Ordering Facility: [facility] Address: [address] [place] [address] Performed By: #### 2 4321-2, , HCG #### [facility] CLIA [id number] [address] [place], [place] [address] [place] ECG COMPLETEon 02-05-2024 ECG COMPLETE Ventricular Rate : 7 7 BPM Atrial Rate : 77 BPM P-R Interval : 174 ms QRS Duration : 82 ms Q-T Interval : 356 ms QTC Calculation(Bazett) : 402 ms Calculated P [place] : 10 degrees Calculated R [place] : 86 degrees Calculated T [place] : 59 degrees Normal sinus rhythm Normal ECG When compared with ECG of 13-Dec-2023 05:05, No significant change was found Confirmed by CECIL LANDEROS MD ([id number]) on 02/06/2024 12:46:07 PM NAME : LUÍS MESAKI PID : [id number] : 1995 Gender : Female Race : Other ORD : [id number] Procedure Date : Feb 05 2024 04:52:56 Edit Date : Feb 06 2024 12:46:09 Diagnosis: Normal sinus rhythm Normal ECG When compared with ECG of 13-Dec-2023 05:05, No significant change was found Confirmed by CECIL LANDEROS MD ([id number]) on 02/06/2024 12:46:07 PM Test Reason : HCS Location : 0 : ED Overread By : CECIL LANDEROS MD Edited By : CECIL LANDEROS MD Referred By : , Acquired by : [id number], [facility] ED NOTEon 02-05-2024 ED NOTE HNO ID: [id number] Author: MALINDA THACKER RN Service: Emergency Medicine Author Type: Registered Nurse Type: ED Notes Filed: 02/05/2024 06:46 Note Text: PT came to window and asked for IV to be removed so she could leave at this time [facility] ED NOTE HNO ID: [id number] Author: MALINDA THACKER RN Service: Emergency Medicine Author Type: Registered Nurse Type: ED Notes Filed: 02/05/2024 04:51 Note Text: PT c/o chest pain intermittent x few days. PT states this morning it woke her up out of her sleep. PT states burning sensation. PT c/o SOB with chest pain. Pt c/o headache and lightheaded. PT c/o nausea. [facility] HIGH SENSITIVITY TROPONIN Io n 02-05-2024 Tropinin I.cardiac panel High sensitivity method <2.5 Normal 0.0-34.0 [facility] Comment on above: Order Comment: Jessica rojo Type: BLOOD SPECIMEN Ordering Facility: [facility] Address: [address] [place] [address] Performed By: #### 2 4321-2, 18745-4, HCG #### [facility] CLIA [id number] [address] [place], [place] [address] [place] Magnesium SerPl-mCncon 02-04 Magnesium [Mass/Vol] 2.1 mg/dL Normal 1.6-2.6 [facility] Comment on above: Order Comment: Jessica rojo Type: BLOOD SPECIMEN Ordering Facility: [facility] Address: [address] [place] [id number] Performed By: #### 2 4321-2, 94146-4, HCG #### [facility] CLIA [id number] [address] [place] [address] [facility] CTPCRon 01-02-2024 C. trachomatis Interp Normal [facility] ([place]) Comment on above: Result Comment: C. t rachomatis DNA not detected. Specimen is presumptive negative for C. trachomatis. A negative result does not preclude C. trachomatis infection because results depend on adequate specimen collection, absence of inhibitors, and sufficient DNA to be detected. See CT Interp N Performed By: #### C TPCR #### [address] [address] C.trachomatis PCR Negative Normal Negative [facility] ([place]) Comment on above: Result Comment: Mole cular (PCR) assay performed on the Jose Sera 4800 system. Performed By: #### C TPCR #### [address] [address] Chlam Source Vaginal Normal [facility] ([place]) Comment on above: Performed By: #### C TPCR #### [address] [address] [id number] 01-02-2024 GC PCR Source Vaginal Normal [facility] ([place]) Comment on above: Performed By: #### N GPCR1, CTPCR #### [address] [address] N. gonorrhoeae (PCR) Negative Normal Negative [facility] ([place]) Comment on above: Result Comment: Mole cular (PCR) assay performed on the Jose Sera 4800 System. Performed By: #### N GPCR1, CTPCR #### [address] [address] N. gonorrhoeae Interp Normal See NG Interp N [facility] ([place]) Comment on above: Result Comment: N. g onorrhoeae DNA not detected. Specimen is presumptive negative for N. gonorrhoeae. A negative result does not preclude Neisseria gonorrhoeae infection because results depend on adequate specimen collection, absence of inhibitors, and sufficient DNA to be detected. See NG Interp N Performed By: #### N GPCR1, CTPCR #### [address] HEALTH 12-13-2023 ALLIED HEALTH HNO ID: [id number] Author: RAUL WYATT RT(R) Service: Radiology Author Type: Technologist Type: Allied Health Filed: 12/13/2023 04:57 Note Text: Summary: xray Radiology Service Progress Note PATIENT NAME: Lisa Mesa DATE OF SERVICE: December 13, 2023 TIME: 4:57 AM PATIENT IDENTITY VERIFICATION COMPLETED USING TWO (2) IDENTIFIERS: Name and Date of confirmed by patient verbally and Name and Date of confirmed by identification band. FALL SCREENING: Has the patient had 2 falls in the last year or 1 fall with injury or currently using an Ambulatory Assistive Device (Walker, Cane, Wheelchair, Crutches, etc.)? Emergency Room Patient: Screened in ED PATIENT GENDER DATA: Female. status: Unknown status: N/A PATIENT RELEVANT IMPLANT DATA REVIEWED: Not Applicable PATIENT PRESENTS WITH AN IMPLANTABLE OR ATTACHED CLINICAL PROFESSOR: No RADIOLOGY DEPARTMENT: General X-ray: Exam(s) Completed: Chest X-Ray PERIPHERAL IV DATA: Not applicable SIGNED BY: RT Brayden(R) December 13, 2023 4:57 AM [facility] CBC W Auto Differential pane l (Bld)on 12-13-2023 Basophils (Bld) [#/Vol] 10*3/uL Normal <0.11 [facility] Comment on above: Order Comment: Speci men Type: BLOOD SPECIMEN Ordering Facility: [facility] Address: [address] [place] [address] Performed By: #### 2 4320-2, , HCG #### [facility] CLIA [id number] [address] [place], [place] [address] [place] Basophils/100 WBC (Bld) 0.3 % Normal [facility] Comment on above: Order Comment: Speci men Type: BLOOD SPECIMEN Ordering Facility: [facility] Address: [address] [place] [address] Performed By: #### 2 4320-2, , HCG #### [facility] CLIA [id number] [address] [place], [place] [address] [place] Differential cell count method Nom (Bld) Auto Normal [facility] Comment on above: Order Comment: Speci men Type: BLOOD SPECIMEN Ordering Facility: [facility] Address: [address] [place] [address] Performed By: #### 2 2, , HCG #### [facility] CLIA [id number] [address] [place], [place] [address] [place] Eosinophils (Bld) [#/Vol] 0.14 10*3/uL Normal <0.46 [facility] Comment on above: Order Comment: Speci men Type: BLOOD SPECIMEN Ordering Facility: [facility] Address: [address] [place] [address] Performed By: #### 2 4320-2, , HCG #### [facility] CLIA [id number] [address] [place], [place] [address] [place] Eosinophils/100 WBC (Bld) 2.0 % Normal [facility] Comment on above: Order Comment: Speci men Type: BLOOD SPECIMEN Ordering Facility: [facility] Address: [address] [place] [address] Performed By: #### 2 4320-2, , HCG #### [facility] CLIA [id number] [address] [place] [address] [place] Erythrocyte distribution width (RBC) [Ratio] 15.1 % High 11.5-15.0 [facility] Comment on above: Order Comment: Speci men Type: BLOOD SPECIMEN Ordering Facility: [facility] Address: [address] [place] [address] Performed By: #### 2 4322, , HCG #### [facility] CLIA [id number] [address] [place] [address] [place] Hematocrit (Bld) [Volume fraction] 32.0 % Low 36.0-46.0 [facility] Comment on above: Order Comment: Speci men Type: BLOOD SPECIMEN Ordering Facility: [facility] Address: [address] [place] [address] Performed By: #### 2 43207-31, , HCG #### [facility] CLIA [id number] [address] [place] [address] [place] Hemoglobin (Bld) [Mass/Vol] 10.2 g/dL Low 11.5-15.5 [facility] Comment on above: Order Comment: Speci men Type: BLOOD SPECIMEN Ordering Facility: [facility] Address: [address] [place] [address] Performed By: #### 2 4320-08, , HCG #### [facility] CLIA [id number] [address] [place] [address] [place] Immature granulocytes (Bld) [#/Vol] 10*3/uL Normal <0.10 [facility] Comment on above: Order Comment: Speci men Type: BLOOD SPECIMEN Ordering Facility: [facility] Address: [address] [place] [address] Performed By: #### 2 4322, , HCG #### [facility] CLIA [id number] [address] [place], [place] [address] [place] Immature granulocytes/100 WBC (Bld) 0.3 % Normal [facility] Comment on above: Order Comment: Speci men Type: BLOOD SPECIMEN Ordering Facility: [facility] Address: [address] [place] [address] Performed By: #### 2 432-2, , HCG #### [facility] CLIA [id number] [address] [place] [address] [place] Lymphocytes (Bld) [#/Vol] 2.50 10*3/uL Normal 1.00-4.00 [facility] Comment on above: Order Comment: Speci men Type: BLOOD SPECIMEN Ordering Facility: [facility] Address: [address] [place] [address] Performed By: #### 2 432-2, , HCG #### [facility] CLIA [id number] [address] [place] [address] [place] Lymphocytes/100 WBC (Bld) 36.0 % Normal [facility] Comment on above: Order Comment: Speci men Type: BLOOD SPECIMEN Ordering Facility: [facility] Address: [address] [place] [address] Performed By: #### 2 4320-2, , HCG #### [facility] CLIA [id number] [address] [place], [place] [address] [place] MCH (RBC) [Entitic mass] 26.7 pg Normal 26.0-34.0 [facility] Comment on above: Order Comment: Speci men Type: BLOOD SPECIMEN Ordering Facility: [facility] Address: [address] [place] [address] Performed By: #### 2 4320-2, , HCG #### [facility] CLIA [id number] [address] [place], [place] [address] [place] MCHC (RBC) [Mass/Vol] 31.9 g/dL Normal 30.5-36.0 [facility] Comment on above: Order Comment: Speci men Type: BLOOD SPECIMEN Ordering Facility: [facility] Address: [address] [place] [address] Performed By: #### 2 432-2, , HCG #### [facility] CLIA [id number] [address] [place], [place] [address] [place] MCV (RBC) [Entitic vol] 83.8 fL Normal 80.0-100.0 [facility] Comment on above: Order Comment: Speci men Type: BLOOD SPECIMEN Ordering Facility: [facility] Address: [address] [place], [place] [address] Performed By: #### 2 4320-2, , HCG #### [facility] CLIA [id number] [address] [place], [place] [address] [place] Monocytes (Bld) [#/Vol] 0.45 10*3/uL Normal <0.87 [facility] Comment on above: Order Comment: Speci men Type: BLOOD SPECIMEN Ordering Facility: [facility] Address: [address] [place], [place] [address] Performed By: #### 2 2, , HCG #### [facility] CLIA [id number] [address] [place] [address] [place] Monocytes/100 WBC (Bld) 6.5 % Normal [facility] Comment on above: Order Comment: Speci men Type: BLOOD SPECIMEN Ordering Facility: [facility] Address: [address] [place], [place] [address] Performed By: #### 2 4320-2, , HCG #### [facility] CLIA [id number] [address] [place], [place] [address] [place] Neutrophils (Bld) [#/Vol] 3.82 10*3/uL Normal 1.45-7.50 [facility] Comment on above: Order Comment: Speci men Type: BLOOD SPECIMEN Ordering Facility: [facility] Address: [address] [place] [address] Performed By: #### 2 432-2, , HCG #### [facility] CLIA [id number] [address] [place] [address] [place] Neutrophils/100 WBC (Bld) 54.9 % Normal [facility] Comment on above: Order Comment: Speci men Type: BLOOD SPECIMEN Ordering Facility: [facility] Address: [address] [place] [address] Performed By: #### 2 4321-2, , HCG #### [facility] CLIA [id number] [address] [place], [place] [address] [place] Nucleated RBC (Bld) [#/Vol] 10*3/uL Normal <0.01 [facility] Comment on above: Order Comment: Speci men Type: BLOOD SPECIMEN Ordering Facility: [facility] Address: [address] [place] [address] Performed By: #### 2 432-2, , HCG #### [facility] CLIA [id number] [address] [place] [address] [place] Nucleated RBC/100 WBC (Bld) [Ratio] 0.0 /100 WBC Normal [facility] Comment on above: Order Comment: Speci men Type: BLOOD SPECIMEN Ordering Facility: [facility] Address: [address] [place] [address] Performed By: #### 2 4320-2, , HCG #### [facility] CLIA [id number] [address] [place], [place] [address] [place] Platelet mean volume (Bld) [Entitic vol] 11.3 fL Normal 9.0-12.7 [facility] Comment on above: Order Comment: Speci men Type: BLOOD SPECIMEN Order[facility] Facility: [facility] Address: [address] [place] [address] Performed By: #### 2 4320-2, , HCG #### [facility] CLIA [id number] [address] [place], [place] [address] [place] Platelets (Bld) [#/Vol] 168 10*3/uL Normal 150-400 [facility] Comment on above: Order Comment: Speci men Type: BLOOD SPECIMEN Ordering Facility: [facility] Address: [address] [place] [address] Performed By: #### 2 4321-2, 40368-0, HCG #### [facility] CLIA [id number] [address] [place] [address] [place] RBC (Bld) [#/Vol] 3.82 10*6/uL Low 3.90-5.20 [facility] Comment on above: Order Comment: Speci men Type: BLOOD SPECIMEN Ordering Facility: [facility] Address: [address] [place], [place] [address] Performed By: #### 2 4321-2, 74699-7, HCG #### [facility] CLIA [id number] [address] [place], [place] [address] [place] WBC (Bld) [#/Vol] 6.95 10*3/uL Normal 3.70-11.00 [facility] Comment on above: Order Comment: Speci men Type: BLOOD SPECIMEN Ordering Facility: [facility] Address: [address] [place], [place] [address] Performed By: #### 2 4321-2, , HCG #### [facility] CLIA [id number] [address] [place], [place] [address] [place] CT CHEST W IVCON PEon 2023 CT CHEST W IVCON PE * * *Final Report* * * DATE OF EXAM: Dec 13 2023 6:35AM [facility] 0540 - CT CHEST W IVCON PE / PROCEDURE REASON: Pulmonary embolism (PE) suspected, high prob * * * * Physician Interpretation * * * * EXAMINATION: CHEST CT WITH CONTRAST (PULMONARY EMBOLISM PROTOCOL) CLINICAL HISTORY: Chest pain, shortness of breath. Lethargy, lightheadedness. Technique: Spiral CT acquisition of the chest from the thoracic inlet to the upper abdomen following IV contrast. Axial 1 and 3 mm thick slices plus coronal and sagittal reformatted images. MQ: CTCP_5 Contrast: 85 mL Omnipaque [address] Radiation dose: Integrated Dose-length product (DLP) for this visit = 551.17 mGy*cm CT Dose Reduction Employed: Automated exposure control(AEC) and iterative recon Comparison: Chest radiograph from earlier the same day RESULT: Limitations: None. Evaluation for thromboembolic disease: - Right heart chambers: No thromboembolic disease. - Main pulmonary arteries: No thromboembolic disease. - Lobar pulmonary arteries: No thromboembolic disease. - Segmental pulmonary arteries: No thromboembolic disease. - Subsegmental pulmonary arteries: No thromboembolic disease. - Additional pulmonary artery findings: The main pulmonary artery is normal in caliber. Lines, tubes, and devices: None. Lung parenchyma and airways: No consolidation. No suspicious pulmonary nodule. The central airways are patent. Pleural space: No pleural effusion. No pleural thickening. Lower neck, lymph nodes, and mediastinum: The imaged thyroid gland is normal. No lymphadenopathy in the supraclavicular, axillary, mediastinal, or hilar regions. Heart, pericardium, and thoracic vessels: The thoracic aorta is normal in caliber. The cardiac chambers are normal in size. No coronary artery atherosclerotic calcifications are noted, although the study is not optimized for coronary assessment. No pericardial effusion or thickening. Bones and soft tissues: No destructive bone lesion. Chest wall is unremarkable. Upper abdomen: No abnormality in the imaged upper abdomen. Localizer images: No additional findings. IMPRESSION: No CT evidence of pulmonary embolism. No other acute findings in the chest. Material Mover: PSCB Transcribe Date/Time: Dec 13 2023 6:52A Dictated by : PAMELA MACHADO MD This examination was interpreted and the report reviewed and electronically signed by: PAMELA MACHADO MD on Dec 13 2023 6:55AM EST [id number] Normal [facility] Comprehensive metabolic 2000 panelon 12-13-2023 Albumin [Mass/Vol] 3.8 g/dL Normal 3.2-5.0 [facility] Comment on above: Order Comment: Speci men Type: BLOOD SPECIMEN Ordering Facility: [facility] Address: [address] [place] [address] [place] [address] Performed By: #### 2 4321-2, 59567-1, HCG #### [facility] CLIA [id number] [address] [place] [address] [place] ALP [Catalytic activity/Vol] 75 U/L Normal 45-117 [facility] Comment on above: Order Comment: Speci men Type: BLOOD SPECIMEN Ordering Facility: [facility] Address: [address] [place] [address] Performed By: #### 2 4321-2, , HCG #### [facility] CLIA [id number] [address] [place] [address] [place] ALT [Catalytic activity/Vol] 16 U/L Normal 13-61 [facility] Comment on above: Order Comment: Speci men Type: BLOOD SPECIMEN Ordering Facility: [facility] Address: [address] [place] [address] Result Comment: Resu lts may be falsely depressed after the administration of Sulfasalazine and/or Sulfapyridine. Performed By: #### 2 4321-2, , HCG #### [facility] CLIA [id number] [address] [place], [place] [address] [place] Anion gap [Moles/Vol] 6 mmol/L Normal 5-16 [facility] Comment on above: Order Comment: Speci men Type: BLOOD SPECIMEN Ordering Facility: [facility] Address: [address] [place] [address] Performed By: #### 2 4321-2, , HCG #### [facility] CLIA [id number] [address] [place], [place] [address] [place] AST [Catalytic activity/Vol] 13 U/L Normal 8-34 [facility] Comment on above: Order Comment: Speci men Type: BLOOD SPECIMEN Ordering Facility: [facility] Address: [address] [place] [address] Result Comment: Resu lts may be falsely depressed after the administration of Sulfasalazine and/or Sulfapyridine. Performed By: #### 2 4321-2, , HCG #### [facility] CLIA [id number] [address] [place], [place] [address] [place] Bilirubin [Mass/Vol] 0.4 mg/dL Normal 0.2-1.0 [facility] Comment on above: Order Comment: Speci men Type: BLOOD SPECIMEN Ordering Facility: [facility] Address: [address] [place], [place] [address] Performed By: #### 2 4321-2, , HCG #### [facility] CLIA [id number] [address] [place] [address] [place] Calcium [Mass/Vol] 9.3 mg/dL Normal 8.5-10.5 [facility] Comment on above: Order Comment: Speci men Type: BLOOD SPECIMEN Ordering Facility: [facility] Address: [address] [place] [address] Performed By: #### 2 4321-2, , HCG #### [facility] CLIA [id number] [address] [place], [place] [address] [place] Chloride [Moles/Vol] 107 mmol/L Normal 98-107 [facility] Comment on above: Order Comment: Speci men Type: BLOOD SPECIMEN Ordering Facility: [facility] Address: [address] [place] [address] Performed By: #### 2 432-2, , HCG #### [facility] CLIA [id number] [address] [place], [place] [address] [place] CO2 [Moles/Vol] 25 mmol/L Normal 21-32 [facility] Comment on above: Order Comment: Speci men Type: BLOOD SPECIMEN Ordering Facility: [facility] Address: [address] [place] [address] Performed By: #### 2 432-2, , HCG #### [facility] CLIA [id number] [address] [place] [address] [place] Creatinine [Mass/Vol] 0.78 mg/dL Normal 0.51-0.95 [facility] Comment on above: Order Comment: Speci men Type: BLOOD SPECIMEN Ordering Facility: [facility] Address: [address] [place] [address] Result Comment: Kelsey ents receiving either N-Acetylcysteine (NAC) or Metamizole prior to venipuncture, may have falsely depressed results. Performed By: #### 2 4321-2, 02578-2, HCG #### [facility] CLIA [id number] [address] [place], [place] [address] [place] Creatinine and Glomerular filtration rate.predicted panel (S/P/Bld) 106 mL/min/1.73m??? Normal >=60 [facility] Comment on above: Order Comment: Jessica rojo Type: BLOOD SPECIMEN Ordering Facility: [facility] Address: [address] [place] [address] Result Comment: Sarah mated Glomerular Filtration Rate (eGFR) is calculated using the 2020 CKD-EPI creatinine equation. This equation utilizes serum creatinine, sex, and age as parameters. The creatinine assay has traceable calibration to isotope dilution-mass spectrometry. Refer to KDIGO guidelines for clinical interpretation. In patients with unstable renal function, e.g. those with acute kidney injury, the eGFR may not accurately reflect actual GFR. Performed By: #### 2 4321-2, , HCG #### [facility] CLIA [id number] [address] [place], [place] [address] [place] Glucose [Mass/Vol] 109 mg/dL High 70-100 [facility] Comment on above: Order Comment: Jessica rojo Type: BLOOD SPECIMEN Ordering Facility: [facility] Address: [address] [place] [address] Result Comment: The [place] [employer] (ADA) provides guidance for cutoff values for fasting glucose and random glucose. The ADA defines fasting as no caloric intake for at least 8 hours. Fasting plasma glucose results between 100 to 125 mg/dL indicate increased risk for diabetes (prediabetes). Fasting plasma glucose results greater than or equal to 126 mg/dL meet the criteria for diagnosis of diabetes. In the absence of unequivocal hyperglycemia, results should be confirmed by repeat testing. In a patient with classic symptoms of hyperglycemia or hyperglycemic crisis, random plasma glucose results greater than or equal to 200 mg/dL meet the criteria for diagnosis of diabetes. Reference: Standards of Medical Care in Diabetes 2016, [place] [employer]. Diabetes Care. 2016.39(Suppl 1). Results may be falsely elevated after the administration of Sulfapyridine. Results may be falsely depressed after the administration of Sulfasalazine. Performed By: #### 2 4321-2, , HCG #### [facility] CLIA [id number] [address] [place], [place] [address] [place] Potassium [Moles/Vol] 3.0 mmol/L Low 3.5-5.1 [facility] Comment on above: Order Comment: Speci men Type: BLOOD SPECIMEN Ordering Facility: [facility] Address: [address] [place] [address] Performed By: #### 2 4320-2, , HCG #### [facility] CLIA [id number] [address] [place], [place] [address] [place] Protein [Mass/Vol] 6.9 g/dL Normal 6.0-8.5 [facility] Comment on above: Order Comment: Speci men Type: BLOOD SPECIMEN Ordering Facility: [facility] Address: [address] [place] [address] Performed By: #### 2 4320-2, , HCG #### [facility] CLIA [id number] [address] [place] [address] [place] Sodium [Moles/Vol] 138 mmol/L Normal 136-145 [facility] Comment on above: Order Comment: Speci men Type: BLOOD SPECIMEN Ordering Facility: [facility] Address: [address] [place] [address] Performed By: #### 2 4320-2, , HCG #### [facility] CLIA [id number] [address] [place], [place] [address] [place] Urea nitrogen [Mass/Vol] 12 mg/dL Normal 7-26 [facility] Comment on above: Order Comment: Speci men Type: BLOOD SPECIMEN Ordering Facility: [facility] Address: [address] [place] [address] Performed By: #### 2 432-2, , HCG #### [facility] CLIA [id number] [address] [place], [place] [address] [place] D dimer FEU PPP-mCncon 12-12 Fibrin D-dimer FEU (PPP) [Mass/Vol] 760 ng/mL FEU High <500 [facility] Comment on above: Order Comment: Speci men Type: BLOOD SPECIMEN Ordering Facility: [facility] Address: [address] [place] [address] Performed By: #### 2 4321-2, 13470-8, HCG #### [facility] CLIA [id number] [address] [place] [id number] [place] [facility] ECG COMPLETEon 12-13-2023 ECG COMPLETE Ventricular Rate : 7 0 BPM Atrial Rate : 70 BPM P-R Interval : 196 ms QRS Duration : 88 ms Q-T Interval : 388 ms QTC Calculation(Bazett) : 419 ms Calculated P [place] : 78 degrees Calculated R [place] : 53 degrees Calculated T [place] : 51 degrees Normal sinus rhythm Normal ECG When compared with ECG of 25-Aug-2023 10:32, No significant change was found Confirmed by CECIL LANDEROS MD ([id number]) on 12/14/2023 1:47:47 PM NAME : LISA MESA PID : [id number] : 1995 Gender : Female Race : Other ORD : [id number] Procedure Date : Dec 13 2023 05:05:57 Edit Date : Dec 14 2023 13:47:48 Diagnosis: Normal sinus rhythm Normal ECG When compared with ECG of 25-Aug-2023 10:32, No significant change was found Confirmed by CECIL LANDEROS MD ([id number]) on 12/14/2023 1:47:47 PM Test Reason : STAT Location : 0 : ED EDH11 Overread By : CECIL LANDEROS MD Edited By : CECIL LANDEROS MD Referred By : , Acquired by : [facility], [facility] ED NOTEon 12-13-2023 ED NOTE HNO ID: [id number] Author: DASHA HERRERA RN Service: ? Author Type: Registered Nurse Type: ED Notes Filed: 12/13/2023 07:32 Note Text: Went over discharge instructions with patient. Discussed the importance of getting established at a PCP. Also discussed her script for potassium, and potassium rich foods to help get her potassium level back WNL. Patient verbalized understanding of this. [facility] ED NOTE HNO ID: [id number] Author: DASHA HERRERA, TRUMAN Service: ? Author Type: Registered Nurse Type: ED Notes Filed: 12/13/2023 04:03 Note Text: Patient states she has been super super drowsy tonight, like cannot keep my eyes open. States she is very lightheaded, legs feel like jello, that it is hard to breath. These symptoms started tonight. States she has been feeling numbness in the right side of her face since mother's day. [facility] ED PROV NOTEon 12-13-2023 ED PROV NOTE HNO ID: [id number] Author: RUBEN QUINTANA MD Service: ? Author Type: Physician Type: ED Provider Notes Filed: 12/13/2023 07:07 Note Text: ED Provider Note Patient Name: Lisa Mesa : 1995 SERVICE DATE: 12/13/23 History Patient presents with: Chills Shortness of Breath: Pt states she woke up feeling short of breath along with having some shakiness/chills. States she cannot get warm. Pt also states she was seen here last night for numbness in her face and the numbness has come back. Patient is a 28-year-old female presenting for evaluation of shortness of breath. She is recently admitted for facial numbness and had a full stroke workup. She started medications for blood pressure and diabetes but she has not taken them since she has been out of the hospital. She comes in today saying she woke up feeling very short of breath. She feels lightheaded like she is going to pass out. She denies any chest pain. She has not had any coughing or nasal congestion. She denies any abdominal pain, nausea or vomiting. She continues to have issues with the facial numbness although that has not changed. She is not having a headache. 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: Patient PAST MEDICAL HISTORY Diagnosis Date Anemia previous Headaches History of sexually transmitted disease PAST SURGICAL HISTORY Procedure Laterality Date NONE NONE FAMILY HISTORY Problem Relation Age of Onset Diabetes Mother Cancer Mother Throat Leukemia Mother No Known Problems Father Diabetes Sister other (Epilepsy) Sister Social History Tobacco Use Smoking status: Former Types: Cigarettes Smokeless tobacco: Never Vaping Use Vaping Use: Never used Substance and Sexual Activity Alcohol use: Yes Comment: socially Drug use: Never Sexual activity: Yes Partners: Male ALLERGIES Allergen Reactions Acetaminophen Hives Hydrocodone Hives Hydrocodone-Acetami* Hives Review of Systems All other systems reviewed and are negative. Physical Exam Vitals [12/13/23 0354] BP Pulse Temp Temp src Resp SpO2 Weight Height 156/94 (!) 99 37.1 ?C (98.7 ?F) Oral 16 99 % 104.3 kg (230 lb) 1.778 m (5' 10) Physical Exam HENT: Head: Normocephalic and atraumatic. Cardiovascular: Rate and Rhythm: Normal rate and regular rhythm. Pulmonary: Effort: Pulmonary effort is normal. Breath sounds: Normal breath sounds. Abdominal: Palpations: Abdomen is soft. Tenderness: There is no abdominal tenderness. Musculoskeletal: General: Normal range of motion. Cervical back: Normal range of motion. Skin: General: Skin is warm. Neurological: Mental Status: She is alert and oriented to person, place, and time. Motor: No weakness. Diagnostic Testing ED Labs Ordered and Reviewed COMPREHENSIVE METABOLIC PANEL - Abnormal; Notable for the following components: Result Value Ref Range Glucose 109 (*) 70 - 100 mg/dL Potassium 3.0 (*) 3.5 - 5.1 mmol/L All other components within normal limits COMPLETE BLOOD COUNT AND DIFFERENTIAL - Abnormal; Notable for the following components: RBC 3.82 (*) 3.90 - 5.20 m/uL Hemoglobin 10.2 (*) 11.5 - 15.5 g/dL Hematocrit 32.0 (*) 36.0 - 46.0 % RDW-CV 15.1 (*) 11.5 - 15.0 % All other components within normal limits VENOUS BLOOD GASES - Abnormal; Notable for the following components: pO2, Venous 69 (*) 35 - 45 mmHg O2 Saturation, Venous 92 (*) 60 - 85 % Hemoglobin, Whole Blood 16.9 (*) 11.5 - 15.5 g/dL All other components within normal limits D-DIMER - Abnormal; Notable for the following components: D Dimer 760 (*) <500 ng/mL FEU All other components within normal limits Narrative: 500 ng/mL FEU is the D Dimer cutoff to exclude DVT (deep vein thrombosis) and PE (pulmonary embolism) in patients with a low pre test probability. Supplemental Comment: In patients over 50 years with a low pre test probability for DVT and/or PE, an age adjusted D dimer cutoff can be calculated as [age x 10] ng/mL FEU. For example, a patient of 88 years would have an age adjusted D dimer cutoff of 880 ng/mL FEU. For patients with a suspected DVT, a D dimer level below 500 ng/mL FEU has a negative predictive value of >98.9%, a sensitivity of >96.9% and a specificity of >35.7%. For patients with a suspected PE, a D dimer level below 500 ng/mL FEU has a negative predictive value of >98.5%, and a sensitivity of >96.5% and a specificity of >38.8%. Reference: Cindy M, et al. RENA 2014 311:1117 and Cruz Simpson N, et al. Tea Int Med 2016 165:253. HIGH SENSITIVITY TROPONIN I - Normal NT PRO BNP - Normal HCG QUALITATIVE - Normal COVID AND INFLUENZA A/B AND RSV NAAT, EXPEDITED - Normal Narrative: This test has been authorized by FDA under an Emergency Use Authorization (EUA). Procedures ED Course / Clinical Impression Clinical Impressions as of 12/13/23 0707 Lightheadedness Dyspnea, unspecified type Hypokalemia COVID-19 test performed per (more content not included)... Normal [facility] FLUABV+SARS-CoV-2+RSV Pnl Re sp HUNG+probeon 12-13-2023 FLUABV+SARS-CoV-2+RS V Pnl Resp HUNG+probe COVID 19 RESULT: Not detected The method used is RT-PCR or an equivalent NAAT method. Reference Range(the expected result in uninfected individuals): Not detected INFLUENZA A PCR: Not detected INFLUENZA B PCR: Not detected RSV PCR: Not detected Normal [facility] Comment on above: Performed By: #### 2 4321-2, 33413-3, HCG #### [facility] CLIA [id number] [address] [place] [address] [place] Gas and Carbon monoxide pane l (BldV)on 12-13-2023 BASE DEFICIT, VENOUS -1 mmol/L Normal -2-0 [facility] Comment on above: Order Comment: Speci men Type: BLOOD SPECIMEN Ordering Facility: [facility] Address: [address] [place] [address] Performed By: #### 2 4321-2, , HCG #### [facility] CLIA [id number] [address] [place], [place] [address] [place] Body temperature 98.78 [degF] Normal [facility] Comment on above: Order Comment: Speci men Type: BLOOD SPECIMEN Ordering Facility: [facility] Address: [address] [place], [place] [address] Performed By: #### 2 432-2, , HCG #### [facility] CLIA [id number] [address] [place], [place] [address] [place] Calcium.ionized (Bld) [Mass/Vol] 1.20 mmol/L Normal 1.08-1.30 [facility] Comment on above: Order Comment: Speci men Type: BLOOD SPECIMEN Ordering Facility: [facility] Address: [address] [place], [place] [address] Performed By: #### 2 432-2, , HCG #### [facility] CLIA [id number] [address] [place], [place] [address] [place] Carboxyhemoglobin (BldV) [Mass fraction] 1.1 % Normal 0.0-2.0 [facility] Comment on above: Order Comment: Speci men Type: BLOOD SPECIMEN Ordering Facility: [facility] Address: [address] [place], [place] [address] Result Comment: Carb oxyhemoglobin Reference Range for Smokers: 2.0-8.0% Performed By: #### 2 4321-2, , HCG #### [facility] CLIA [id number] [address] [place], [place] [address] [place] CO2 (BldV) [Partial pressure] 43 mm[Hg] Normal 42-55 [facility] Comment on above: Order Comment: Speci men Type: BLOOD SPECIMEN Ordering Facility: [facility] Address: [address] [place] [address] Performed By: #### 2 4320-2, , HCG #### [facility] CLIA [id number] [address] [place], [place] [address] [place] CO2 adjusted to patient's actual temperature (BldV) [Partial pressure] Normal [facility] Comment on above: Order Comment: Speci men Type: BLOOD SPECIMEN Ordering Facility: [facility] Address: [address] [place] [address] Performed By: #### 2 4322, , HCG #### [facility] CLIA [id number] [address] [place], [place] [address] [place] Glucose [Mass/Vol] 100 mg/dL Normal 60-105 [facility] Comment on above: Order Comment: Speci men Type: BLOOD SPECIMEN Ordering Facility: [facility] Address: [address] [place] [address] Performed By: #### 2 2, , HCG #### [facility] CLIA [id number] [address] [place] [address] [place] HCO3 (Bld) [Moles/Vol] 25 mmol/L Normal 24-28 [facility] Comment on above: Order Comment: Speci men Type: BLOOD SPECIMEN Ordering Facility: [facility] Address: [address] [place] [address] Performed By: #### 2 2, , HCG #### [facility] CLIA [id number] [address] [place], [place] [address] [place] Hemoglobin (Bld) [Mass/Vol] 16.9 g/dL High 11.5-15.5 [facility] Comment on above: Order Comment: Speci men Type: BLOOD SPECIMEN Ordering Facility: [facility] Address: [address] [place] [address] Performed By: #### 2 2, , HCG #### [facility] CLIA [id number] [address] [place], [place] [address] [place] Lactate [Moles/Vol] 1.5 mmol/L Normal 0.5-2.2 [facility] Comment on above: Order Comment: Speci men Type: BLOOD SPECIMEN Ordering Facility: [facility] Address: [address] [place] [address] Performed By: #### 2 432-2, , HCG #### [facility] CLIA [id number] [address] [place], [place] [address] [place] Methemoglobin (Bld) [Mass fraction] 0.3 % Normal 0.0-1.5 [facility] Comment on above: Order Comment: Speci men Type: BLOOD SPECIMEN Ordering Facility: [facility] Address: [address] [place] [address] [place] [id number] Performed By: #### 2 432-2, , HCG #### [facility] CLIA [id number] [address] [place], [place] [address] [place] O2 THERAPY RA=Room Air Normal [facility] Comment on above: Order Comment: Speci men Type: BLOOD SPECIMEN Ordering Facility: [facility] Address: [address] [id number] Performed By: #### 2 432-2, , HCG #### [facility] CLIA [id number] [address] [place], [place] [id number] [place] Oxygen (BldV) [Partial pressure] 69 mm[Hg] High 35-45 [facility] Comment on above: Order Comment: Speci men Type: BLOOD SPECIMEN Ordering Facility: [facility] Address: [address] [id number] Performed By: #### 2 432-2, , HCG #### [facility] CLIA [id number] [address] [place], [place] [address] [place] Oxygen adjusted to patient's actual temperature (BldV) [Partial pressure] [facility] Comment on above: Order Comment: Speci men Type: BLOOD SPECIMEN [facility]ing Facility: [facility] Address[address] [facility] [id number] Performed By: #### 2 4321-2, , HCG #### [facility] CLIA [id number] [address] [place] [address] [place] Oxygen saturation in Venous blood 92 % High 60-85 [facility] Comment on above: Order Comment: Speci men Type: BLOOD SPECIMEN Ordering Facility: [facility] Address: [address] [place] [address] Performed By: #### 2 4321-2, , HCG #### [facility] CLIA [id number] [address] [place], [place] [address] [place] Oxyhemoglobin (BldV) [Mass fraction] 92 % Normal 4-98 [facility] Comment on above: Order Comment: Speci men Type: BLOOD SPECIMEN Ordering Facility: [facility] Address: [address] [place] [address] Performed By: #### 2 2, , HCG #### [facility] CLIA [id number] [address] [place], [place] [address] [place] pH (BldV) 7.38 [pH] Normal 7.32-7.42 [facility] Comment on above: Order Comment: Speci men Type: BLOOD SPECIMEN Ordering Facility: [facility] Address: [address] [place] [address] Performed By: #### 2 4320-2, , HCG #### [facility] CLIA [id number] [address] [place], [place] [address] [place] pH adjusted to patient's actual temperature (BldV) Normal [facility] Comment on above: Order Comment: Speci men Type: BLOOD SPECIMEN Ordering Facility: [facility] Address: [address] [place], [place] [address] Performed By: #### 2 4320-2, , HCG #### [facility] CLIA [id number] [address] [place] [address] [place] Potassium [Moles/Vol] 3.1 mmol/L Normal 2.5-6.0 [facility] Comment on above: Order Comment: Speci men Type: BLOOD SPECIMEN Ordering Facility: [facility] Address: [address] [place] [address] Performed By: #### 2 4321-2, , HCG #### [facility] CLIA [id number] [address] [place] [address] STATES [facility] Sodium [Moles/Vol] 141 mmol/L Normal 136-144 [facility] Comment on above: Order Comment: Speci men Type: BLOOD SPECIMEN Ordering Facility: [facility] Address: [address] [place] [address] Performed By: #### 2 4321-2, , HCG #### [facility] CLIA [id number] [address] [place] [address] [place] HCG QUALITATIVEon 12-13-2023 HCG, QUALITATIVE Negative Normal Negative [facility] Comment on above: Order Comment: Speci men Type: BLOOD SPECIMEN Ordering Facility: [facility] Address: [address] [place] [address] Performed By: #### 2 432-2, , HCG #### [facility] CLIA [id number] [address] [place] [address] [place] HIGH SENSITIVITY TROPONIN Io n 12-13-2023 Tropinin I.cardiac panel High sensitivity method <2.5 Normal 0.0-34.0 [facility] Comment on above: Order Comment: Speci men Type: BLOOD SPECIMEN Ordering Facility: [facility] Address: [address] [place] [address] Result Comment: This assay uses different antibodies than our current assay, and assays, even by the same care tech may recognize different regions of the antibody and cannot be used interchangeably. Expect results of this assay to run higher than the previous assay. Performed By: #### 2 4321-2, , HCG #### [facility] CLIA [id number] [address] [place] [address] [place] [facility]12 Natriuretic peptide.B prohormone N-Terminal [Mass/Vol] <15 Normal <125 [facility] Comment on above: Order Comment: Speci men Type: BLOOD SPECIMEN Ordering Facility: [facility] Address: [place] [address] Result Comment: NT-p roBNP results of less than 300 pg/mL likely rules out acute congestive heart failure with 99% predictive value. NOTE: These cutoff points are suggested for ACUTE CHF DIAGNOSIS only Less than 50 years\X09\ Greater than 450 pg/mL 50 - 75 years\X09\\X09\ Greater than 900 pg/mL Greater than 75 years\X09\ Greater than 1800 pg/mL NOTE NEW NORMAL RANGE Performed By: #### 2 4321-2, 25651-9, HCG #### [facility] CLIA [id number] [address] [id number] [place] XR CHEST 1V FRONTAL PORTon 0 12-13-2023 XR CHEST 1V FRONTAL PORT * * *Final Report* * * DATE OF EXAM: Dec 13 2023 4:35AM RHX [id number] - XR CHEST 1V FRONTAL PORT / PROCEDURE REASON: Shortness of breath * * * * Physician Interpretation * * * * EXAMINATION: XR CHEST 1V FRONTAL PORT HISTORY: Shortness of breath COMPARISON: 08/25/2023 FINDINGS: Lungs: No focal opacities Mediastinum: Unremarkable Pleura: No pleural effusion or pneumothorax Other: Unremarkable IMPRESSION: No acute pulmonary process Material Mover: RADHA Transcribe Date/Time: Dec 13 2023 4:44A Dictated by : JULIO MELGAR MD This examination was interpreted and the report reviewed and electronically signed by: JULIO MELGAR MD on Dec 13 2023 4:44AM EST [id number] [facility] ED NOTEon 12-12-2023 ED NOTE HNO ID: [id number] Author: ZACHARIAH THOMAS, TRUMAN Service: Emergency Medicine Author Type: Registered Nurse Type: ED Notes Filed: 12/12/2023 00:56 Note Text: Pt not having improvement from symptoms from recent admission [facility] for numbness. Pt having a hard time at home managing BP at home. Pt AANDO x3. [facility] ED PROV NOTEon 12-12-2023 ED PROV NOTE HNO ID: [id number] Author: MY GUTIERREZ PA-C Service: ? 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 PT states that she did have CT and MRI there, and was told multiple different stories. PT wants a second opinion. Lisa Mesa is a 28 year old female who presents to the ED for evaluation of right-sided facial paresthesias which have been ongoing for the past 3 days. The patient states that her symptoms started in the afternoon on Mother's Day. She describes abrupt onset of numbness and tingling to the right side of her face from her eye down to her chin. She denies any additional associated symptoms with this. She had had a headache that morning on Mother's Day but states that it was from drinking and that it resolved spontaneously. She denied any associated vision changes, difficulty speaking or swallowing, facial droop, neck pain or stiffness, chest pain, shortness of breath, numbness/tingling/weak ness in the extremities of abdominal pain, back pain, or any other symptoms. She was seen at the time of her symptom onset at [facility] and was admitted. She was actually just discharged today. She states that she has had no significant change in her symptoms since her discharge but was very upset with the care that she received there. She states that she felt like she was not given any clear explanations about her imaging results or plan to follow-up. She states that she was concerned about the persistence of her symptoms without any obvious explanation and so she decided to come here in order to obtain a second opinion. She continues to deny any of the above symptoms and states that she still has persistent right-sided facial numbness/paresthesias. While in the hospital, she was found to be hypertensive and have a mildly elevated A1c and so she was prescribed metformin and amlodipine upon discharge which she has not yet filled or taken. The patient has no other chronic medical problems. She has no other complaints or concerns. No other pertinent HPI ROS Review of Systems All systems reviewed and negative except noted in HPI PAST MEDICAL HISTORY Diagnosis Date Anemia previous Headaches History of sexually transmitted disease PAST SURGICAL HISTORY Procedure Laterality Date NONE NONE FAMILY HISTORY Problem Relation Age of Onset Diabetes Mother Cancer Mother Throat Leukemia Mother No Known Problems Father Diabetes Sister other (Epilepsy) Sister Social History Tobacco Use Smoking status: Former Types: Cigarettes Smokeless tobacco: Never Vaping Use Vaping Use: Never used Substance and Sexual Activity Alcohol use: Yes Comment: socially Drug use: Never Sexual activity: Yes Partners: Male ALLERGIES Allergen Reactions Acetaminophen Hives Hydrocodone Hives Hydrocodone-Acetami* Hives Records on file/review of medical records: Nursing/triage notes and assessments as well as vitals were reviewed and incorporated Records on file reviewed: N/A Physical Exam Vitals [12/11/23 2353] BP Pulse Temp Temp src Resp SpO2 Weight Height 157/101 (!) 91 36.9 ?C (98.5 ?F) Oral 18 99 % 104.3 kg (230 lb) 1.778 m (5' 10) Physical Exam General: Well-appearing. Nontoxic. Sitting upright in bed in no apparent distress. Pleasant. Conversational. HEENT: Normocephalic/atraumat ic. Bilateral conjunctiva without injection or drainage. Mucous membranes are moist. Airway is patent. No drooling, stridor, or muffled voice. Neck: Supple. No meningismus. Chest: No respiratory distress. Normal work of breathing. Breath sounds are clear and equal. No wheezing, rales, rhonchi. Chest is nontender to palpation. Cardiac: RRR, no rubs. Abdomen: Normal active bowel sounds x4. Abdomen is soft and nontender. No peritoneal signs or distention. : no performed/not indicated Rectal: no performed/not indicated Back: Atraumatic. No midline tenderness. No CVA tenderness. Extremities: Atraumatic. No edema. Skin: Warm. Dry. No rashes. Neuro: Alert and oriented x3. Patient reports right-sided facial numbness/paresthesias which involves the entire right side of the face more so on the lower half of the face. Otherwise, cranial nerves II through XII are intact. Strength is 5 out of 5 in bilateral upper and lower extremities. No pronator drift. Oiobdj-lbrj-uhrnut and heel valdes intact. Sensation to light touch is intact throughout the upper and lower extremities. Patient is ambulatory with a normal gait. Radial dorsalis pedis pulses are 2+. Psyc: Normal mood/affect. Normal judgment/memory. Diagnostic Testing ED Labs Ordered and Re (more content not included)... [facility] CASE MANAGEMon 12-11-2023 CASE MANAGEM HNO ID: [id number] Author: ALLY LEHMAN RN Service: ? Author Type: Registered Nurse Type: Care Mgt Progress Note Filed: 12/11/2023 15:08 Note Text: CARE MANAGEMENT DISCHARGE NOTE SERVICE DATE: December 11, 2023 SERVICE TIME: 1100 Admission Date: 12/09/2023 LOS: 0 days Discharge Arrangement Discharge Arrangement: Home with Self Care Caregiver Assessment Caregiver is ready, willing and able to meet the patient's needs as recommended by the inter-professional team: No Caregiver needed Transportation Arrangements Transportation Arrangements: Car Date of Trip: 12/11/23 Time of Trip: 1300 Destination: Home Handoff Communication: Handoff to: Primary Care Physician Primary Care Physician Name/Phone: Dr. Marcelo Isbell [phone] Additional Information: Patient being discharged home today with self-care. S.O. to transport. No TCC needs. SIGNATURE: Ally Lehman RN PATIENT NAME: Lisa Mesa DATE: December 11, 2023 TIME: 3:07 PM CONTACT #: [phone] [facility] CNDSon 12-11-2023 CNDS HNO ID: [id number] Author: LORETA FROST MD Service: Hospital Medicine Author Type: Physician Type: Discharge Summary Filed: 12/11/2023 12:39 Note Text: DISCHARGE SUMMARY PATIENT NAME: Lisa Mesa Code Status: Full Code Highest Readmission Risk Score: 11 The 30 day readmissions risk score is derived from an internally validated risk model which evaluates patient level characteristics, utilization history, medication orders and lab results up until the day of discharge. Patients with a score of 40 or above are considered highest risk for readmission. Specific patient level drivers will be listed at the bottom of the summary. Admission Information Admission Information ADMIT DATE: 12/09/2023 DISCHARGE DATE: 12/11/2023 MY DOCTORS AND MEDICAL TEAM: [facility] Doctor: Loreta Frost MD Primary Care Provider: Marcelo Isbell DO My Medical Team Members: Treatment Team: Attending Provider: Loreta Frost MD Primary Service: [facility] Consulting: Cecil Ramirez MD MY CONDITION AT DISCHARGE: Stable REASON I WAS IN THE HOSPITAL: Right facial numbness, hypertension, prediabetes SUMMARY OF WHAT HAPPENED WHILE I WAS IN THE HOSPITAL: This is a 28 year old female with past medical history significant for prediabetes and anemia who presents with right facial numbness. She denies any headache or vision changes. She reports that she drink heavily and likely blacked out yesterday from drinking which is unusual for her. Patient also has occasional headaches and blurry vision but none right now. No other focal neurological symptoms noted except for right-sided facial numbness and decreased sensation. Stat CT head negative. MRI brain with without contrast negative for acute stroke. Nonspecific white matter changes noted which can be seen in patients with headache or vascular risk factors. No signs of Multiple sclerosis on MRI brain. Neurology was consulted, recommend symptoms could likely be alcohol induced distal atypical trigeminal neuralgia. Also noted to have elevated blood pressure ranging from 120-160 systolic and 80-100 diastolic. Patient has a history of gestational hypertension and diabetes. She has not been on any medication since then. Has not followed up with a physician outpatient. Started on amlodipine 5 mg p.o. daily. Hemoglobin A1c 6.3%, noted to have elevated blood glucose levels, started on metformin 500 mg daily for prediabetes. Counseled for lifestyle modification, weight loss and dietary changes. Advised patient follow-up with PCP for optimization of blood pressure and prediabetes. If symptoms not improving patient can follow-up outpatient with neurology in 1 week. She is being discharged home in a stable condition. OTHER PROBLEMS/DIAGNOSIS: Principal Problem: Facial numbness Active Problems: Nicotine use disorder, F17.2 Obesity, Class I, BMI 30-34.9 OPERATIONS PERFORMED WHILE IN THE HOSPITAL: None IMPORTANT TEST/PROCEDURES: MRI Brain w/wo contrast TEST RESULTS NOT AVAILABLE AT THIS TIME: No pending results Discharge Disposition Discharge Disposition: Home With Self Care Activity When You Leave the Hospital Resume pre-hospital activity Follow Up Appointments Follow-Up Appointment When: In 1 week Patient/Parents to call for appointment?: Yes Marcelo Isbell DO [phone] [facility] [address] [address] PCP Requested Referral Follow-Up Appointment For right-sided facial numbness and headache When: In 1 week Patient/Parents to call for appointment?: Yes Cecil Ramirez MD [phone] [facility] [address] PCP Requested Referral Additional Provider to Provider Information: Treatment Team: Attending Provider: Loreta Frost MD Primary Service: [facility] Consulting: Cecil Ramirez MD Transitions of Care Critical Issues: SPECIALIST FOLLOW-UP: Neurology if numbness persists GIL MEDICATION CHANGES: Amlodipine 5 mg p.o. daily, metformin 500 mg p.o. every morning LABS AND PROCEDURES PENDING AT DISCHARGE: No pending results. FOLLOW-UP APPOINTMENTS ALREADY SCHEDULED WITH A [facility] PROVIDER: No future appointments. ALLERGIES Allergen Reactions Acetaminophen Hives Hydrocodone Hives Hydrocodone-Acetami* Hives DISCHARGE MEDICATION: Medication List START taking these medications amLODIPine 5 mg tablet Commonly known as: NORVASC Take 1 tablet by mouth once daily. Start taking on: December 12, 2023 metFORMIN 500 mg tablet Commonly known as: GLUCOPHAGE Take 1 tablet by mouth daily with breakfast. CONTINUE taking these medications acetaminophen 500 mg tablet Commonly known as: TYLENOL EXTRA STRENGTH Take 2 tablets by mouth every 6 hours as needed for Pain. STOP taking these medications labetalol 100 mg tablet Commonly known as: TRANDATE magnesium oxide 400 mg (241.3 mg magnesium) tablet Commonly k (more content not included)... Normal [facility] CONSULTon 12-11-2023 CONSULT HNO ID: [id number] Author: ALICIA ARELLANO MD Service: Neurology General Author Type: Physician Type: Consults Filed: 12/11/2023 10:40 Note Text: Neurology Consultation Note Date: December 11, 2023 Patient Name: Lisa Mesa Neurology was requested by Loreta Ramon to evaluate Lisa Mesa, a 28 year old female for a chief complaint of right facial numbness. Our recommendations of care will be communicated by shared medical record. HPI: This is Ms. Lisa Mesa a 28 year old female with past medical history significant for prediabetes and anemia who presents with right facial numbness. Patient reports symptoms started today around 4:00 and has been persistent. Patient is never had similar symptoms in the past. She denies any headache or vision changes. She reports that she drink heavily and likely blacked out yesterday from drinking which is unusual for her. She reports that she will only drink approximately once per month however yesterday drink too much. She reports she may have fallen out of her bed. She reports intermittent blurry vision but nothing new or acute. Patient does report occasional headaches however her last headache was 3 days ago. She denies any weakness in her arms or legs or any difficulty speaking or swallowing. She otherwise denies fevers, chills, shortness of breath, chest pain, nausea, vomiting, diarrhea, abdominal pain, bleeding of any kind, dysuria or frequency. Patient does report some mucus in her stool today but denies any diarrhea or abdominal pain OUTPATIENT MEDICATIONS omeprazole (PRILOSEC) 20 mg capsuleTake 1 capsule by mouth once daily.Disp: 30 capsuleRfl: 0 (Patient not taking: Reported on 06/08/2023) labetalol (TRANDATE) 100 mg tabletTake 1 tablet by mouth twice daily for 7 days.Disp: 14 tabletRfl: 0 (Patient not taking: Reported on 06/08/2023) promethazine (PHENERGAN) 25 mg tabletTake 1 tablet by mouth every 4 hours as needed for Nausea/Vomiting (or migraines).Disp: 30 tabletRfl: 0 (Patient not taking: Reported on 06/08/2023) acetaminophen (TYLENOL EXTRA STRENGTH) 500 mg tabletTake 2 tablets by mouth every 6 hours as needed for Pain.Disp: 30 tabletRfl: 0 Qxmpqkfb-We-Ijl-Fe-FA ( VITAMIN) tabTake 1 tablet by mouth once daily.Disp: 30 tabletRfl: 11 (Patient not taking: Reported on 06/08/2023) magnesium oxide (MAG-OX) 400 mg (241.3 mg magnesium) tabletTake 1 tablet by mouth twice daily.Disp: 60 tabletRfl: 1 (Patient not taking: Reported on 02/19/2019 ) vit,calc76/iron/folic (PNV 29-1 ORAL)Take by mouth.Disp: Rfl: (Patient not taking: Reported on 06/08/2023) pyridoxine, vitamin B6, (VITAMIN B-6) 50 mg tabletTake 1 tablet by mouth once daily.Disp: 30 tabletRfl: 0 (Patient not taking: Reported on 06/08/2023) MEDICAL HISTORY PAST MEDICAL HISTORY Diagnosis Date Anemia previous Headaches History of sexually transmitted disease SURGICAL HISTORY PAST SURGICAL HISTORY Procedure Laterality Date NONE NONE SOCIAL HISTORY Social History Tobacco Use Smoking status: Former Types: Cigarettes Smokeless tobacco: Never Vaping Use Vaping Use: Never used Substance Use Topics Alcohol use: Yes Comment: socially Drug use: Never FAMILY HISTORY FAMILY HISTORY Problem Relation Age of Onset Diabetes Mother Cancer Mother Throat Leukemia Mother No Known Problems Father Diabetes Sister other (Epilepsy) Sister ALLERGIES ALLERGIES Allergen Reactions Acetaminophen Hives Hydrocodone Hives Hydrocodone-Acetami* Hives REVIEW OF SYSTEMS: GENERAL: No fevers or irritability. Normal sleep, appetite and activity HEENT: No problems with hearing or vision, no nose bleeds or other nasal problems. NECK: Negative for stiffness, lumps or significant neck swelling RESPIRATORY: Negative for cough, wheezing or respiratory distress. CARDIOVASCULAR: Negative for chest pain, syncope, lightheadness or heart racing. GI: Negative for abdominal discomfort, blood in stools or black stools or change in bowel habits : No history of dysuria, frequency or incontinence MUSCULOSKELETAL: Negative for joint pain or swelling, back pain or muscle pain. SKIN: Negative for lesions, rash, and itching. NEURO: No weakness, seizures or change in mental status. PHYSICAL EXAM: Vital Signs: BP 137/95 Pulse 74 Temp 36.9 ?C (98.5 ?F) (Oral) Resp 18 Ht 177.8 cm (5' 10) Wt 104.3 kg (230 lb) LMP 06/20/2023 (Within Days) SpO2 99% BMI 33.00 kg/m? In no acute distress. HEENT normal. Patient's language is intact to comprehension. Speech is fluent. Mood is appropriate. Fund of knowledge is adequate.Patient is aware and oriented. Follows commands. Cranial Nerves: Extra-ocular movements are intact in all axes. There is no gaze evoked or spontaneous nystagmus. Facial sensation diminished on the right side . Facial muscles are symmetric and there is no hyperacusis. H Motor exam revea (more content not included)... Normal [facility] ALLIED HEALTHon 12-10-2023 ALLIED HEALTH HNO ID: [id number] Author: ENRICO, CHARLIE, RT(R) Service: Radiology Author Type: Technologist Type: Allied Health Filed: 12/10/2023 21:13 Note Text: Radiology Service Progress Note DATE OF SERVICE: December 10, 2023 TIME: 9:13 PM PATIENT IDENTITY VERIFICATION COMPLETED USING TWO (2) STANDARD IDENTIFIERS: Name and Date of confirmed by patient verbally and Name and Date of confirmed by identification band. FALL SCREENING: Has the patient had 2 falls in the last year or 1 fall with injury or currently using an Ambulatory Assistive Device (Walker, Cane, Wheelchair, Crutches, etc.)? Inpatient: Screened on floor PATIENT GENDER DATA: Female. status: : No status: NO. PATIENT RELEVANT IMPLANT DATA REVIEWED: Not Applicable PATIENT PRESENTS WITH AN IMPLANTABLE OR ATTACHED CLINICAL PROFESSOR: No ALLERGIES: Reviewed and unchanged CONTRAST ALLERGY: NO. EXAM: MRI - CONTRAST TYPE: GROUP II PERIPHERAL IV DATA: Inpatient - refer to LDA documentation RADIOLOGY DEPARTMENT: MR; Exam(s) Completed: Head: Routine Brain SIGNATURE: Charlie SundayRT(R) PATIENT NAME: Lisa Mesa DATE: December 10, 2023 TIME: 9:13 PM Normal [facility] Basic metabolic 2000 panelon 12-10-2023 Anion gap [Moles/Vol] 15 mmol/L Normal 9-18 [facility] Comment on above: Order Comment: Speci men Type: BLOOD SPECIMEN Ordering Facility[facility] Address: [address] [place] [address] Performed By: #### 2 4321-2, 85010-9 #### [facility] CLIA [id number] [address] [place] [address] [place] Calcium [Mass/Vol] 8.9 mg/dL Normal 8.5-10.2 [facility] Comment on above: Order Comment: Speci men Type: BLOOD SPECIMEN Ordering Facility: [facility] Address: [address] [place] [address] Performed By: #### 2 4321-2, 57895-6 #### [facility] CLIA [id number] [address] [place] [address] [place] Chloride [Moles/Vol] 106 mmol/L High 97-105 [facility] Comment on above: Order Comment: Speci men Type: BLOOD SPECIMEN Ordering Facility: [facility] Address: [address] [place] [address] Performed By: #### 2 4321-2, 46231-8 #### [employer] [facility] CLIA [id number] [address] CO2 [Moles/Vol] 19 mmol/L Low 22-30 [facility] Comment on above: Order Comment: Speci men Type: BLOOD SPECIMEN Ordering Facility: [facility] Address: [address] [place] [address] Performed By: #### 2 4321-2, 07313-8 #### [facility] CLIA [id number] [address] Creatinine [Mass/Vol] 0.69 mg/dL Normal 0.58-0.96 [facility] Comment on above: Order Comment: Speci men Type: BLOOD SPECIMEN Ordering Facility: [facility] Address: [address] [place] [address] Performed By: #### 2 432-2, 46560-1 #### [facility] CLIA [id number] [address] Creatinine and Glomerular filtration rate.predicted panel (S/P/Bld) 121 mL/min/1.73m??? Normal >=60 [facility] Comment on above: Order Comment: Speci men Type: BLOOD SPECIMEN Ordering Facility: [facility] Address: [address] [place] [address] Result Comment: Sarah mated Glomerular Filtration Rate (eGFR) is calculated using the 2020 CKD-EPI creatinine equation. This equation utilizes serum creatinine, sex, and age as parameters. The creatinine assay has traceable calibration to isotope dilution-mass spectrometry. Refer to KDIGO guidelines for clinical interpretation. In patients with unstable renal function, e.g. those with acute kidney injury, the eGFR may not accurately reflect actual GFR. Performed By: #### 2 4321-2, 13981-6 #### [facility] CLIA [id number] [address] [place] [address] [place] Glucose [Mass/Vol] 80 mg/dL Normal 74-99 [facility] Comment on above: Order Comment: Jessica rojo Type: BLOOD SPECIMEN Ordering Facility: [facility] Address: [address] [place] [address] Result Comment: The [place] Diabetes Association (ADA) provides guidance for cutoff values for fasting glucose and random glucose. The ADA defines fasting as no caloric intake for at least 8 hours. Fasting plasma glucose results between 100 to 125 mg/dL indicate increased risk for diabetes (prediabetes). Fasting plasma glucose results greater than or equal to 126 mg/dL meet the criteria for diagnosis of diabetes. In the absence of unequivocal hyperglycemia, results should be confirmed by repeat testing. In a patient with classic symptoms of hyperglycemia or hyperglycemic crisis, random plasma glucose results greater than or equal to 200 mg/dL meet the criteria for diagnosis of diabetes. Reference: Standards of Medical Care in Diabetes 2016, [place] Diabetes Association. Diabetes Care. 2016.39(Suppl 1). Performed By: #### 2 4321-2, 49893-3 #### [facility] CLIA [id number] 1 [place] [address] [place] Potassium [Moles/Vol] 3.5 mmol/L Low 3.7-5.1 [facility] Comment on above: Order Comment: Jessica rojo Type: BLOOD SPECIMEN Ordering Facility: [facility] Address: [address] [place] [address] Performed By: #### 2 432-2, 50992-7 #### [facility] CLIA [id number] 1 [place] [address] [place] Sodium [Moles/Vol] 140 mmol/L Normal 136-144 [facility] Comment on above: Order Comment: Jessica rojo Type: BLOOD SPECIMEN Ordering Facility: [facility] Address: [address] [place] [address] Performed By: #### 2 432-2, 92923-5 #### [facility] CLIA [id number] 1 [place] [address] [place] Urea nitrogen [Mass/Vol] 8 mg/dL Normal 7-21 [facility] Comment on above: Order Comment: Speci men Type: BLOOD SPECIMEN Ordering Facility: [facility] Address: [facility] [place] [address] Performed By: #### 2 4321-2, 16836-4 #### [facility] CLIA [id number] [address] [place] [address] [place] CASE MGT INIT Melissa 2023 CASE MGT INIT MALISSA HNO ID: [id number] Author: ALLY LEHMAN RN Service: ? Author Type: Registered Nurse Type: Care Mgt Initial Assessment Filed: 12/10/2023 15:00 Note Text: CARE MANAGEMENT: ASSESSMENT AND DISCHARGE PLAN SERVICE DATE: December 10, 2023 SERVICE TIME: 1457 PCP: Marcelo Isbell DO Primary Contact: Extended Emergency Contact Information Primary Emergency Contact: Cooper Baca Mobile Relation: Significant other Admission Status: Observation Insurance Provider: [facility] MEDICAID OF [place] Discharge Planning requested by: Per Department Practice Potential Transition Plans No Services Indicated;Home Advance Directives Current Advance Directive: None Ocean[employer] Attempted to Assist with AD Completion: Yes Action: Education Provided Current Living Arrangements and Support Lives with: Children Type of Residence: Private Residence (Apartment or Condo) Does the patient have to climb stairs at home?: Yes;stairs outside the home Support: Children, Social Agency, Spouse/significant other, Family members, Friends/neighbors, Parent How do you manage to accomplish the following: Independent: Ambulation;Bathe/Showe r;Transportation to appointments/community ;Dress;Meals/Meal Prep;Going to the bathroom;Medication Management Current Services/Equipment Current Post-Acute Service(s): None Discharge Planning Patient Goal(s): General wellness, Be able to go home, Independent living [place] of Choice Explained: [place] of Choice Given: No Reason Not Given: No placements necessary Are you interested in bedside delivery of your medications? Yes Discharge Planning Participant(s): Patient Patient/Family Comments: Caregiver Assessment: Caregiver is ready, willing and able to meet the patient's needs as recommended by the inter-professional team: No Caregiver needed Transport at Discharge: Transportation Arrangements: Car Destination: Home Needs Prior to Discharge: Needs Prior to Discharge: To Be Determined;Patient/Fam arlene;Procedure;Discharg e Prescriptions;Pharmacy Bedside Delivery;Other: See Comment (medical clearance) Patient/Family: Education Procedure Needed: ECHO; possible MRI Post-Acute Discharge Plan: Spoke with patient at bedside. Patient from home with minor children and independent prior to admission. No AD for ambulation. +employed/drives. Plan to return home with self-care, once medically cleared. S.O. to transport. Denied social/skilled needs. Awaiting ECHO and possible MRI. SIGNATURE: Ally Lehman RN DATE: December 10, 2023 TIME: 2:58 PM Normal [facility] HCG Preg Ur Qlon 12-10-2023 HCG ( test) Ql (U) Negative Normal Negative [facility] Comment on above: Order Comment: Speci men Type: URINE SPECIMEN Ordering Facility: [facility] Address: [address] [place] [address] Result Comment: This test is intended to aid in the early detection of . Very dilute urine samples, as indicated by a low specific gravity, may not contain senior sales representative levels of hCG. This test detects intact hCG only. This test does not reliably detect hCG degradation products, including free-beta subunit and beta-core fragment. Therefore, this test may show reduced reactivity in urine after 8 weeks gestation. A number of conditions other than , including trophoblastic disease and certain non-trophoblastic neoplasms cause elevated levels of hCG. As with any assay employing mouse antibodies, the possibility exists for interference by human anti-mouse antibodies (HAMA) in the specimen. The test provides a presumptive diagnosis for . Performed By: #### 2 106-3 #### [facility] CLIA [id number] [address] OF [facility] HISTORY PHYSICALon 4 HISTORY PHYSICAL HNO ID: [id number] Author: ARJUN DICKSON DO Service: Hospital Medicine Author Type: Physician Type: H&P Filed: 12/09/2023 23:52 Note Text: DEPARTMENT OF HOSPITAL MEDICINE HISTORY AND PHYSICAL EXAM SERVICE DATE: 12/09/2023 SERVICE TIME: 11:18 PM Primary Care Physician: Estrella Pcp, RETAIL COORDINATOR NIGHT AND WEEKEND COVERAGE: [place] COVERAGE: From 7am - 7pm, please call sound After 7pm, please call cross cover pager #[phone] Subjective CHIEF COMPLAINT: Right facial numbness HPI: This is a 28 year old female with past medical history significant for prediabetes and anemia who presents with right facial numbness. Patient reports symptoms started today around 4:00 and has been persistent. Patient is never had similar symptoms in the past. She denies any headache or vision changes. She reports that she drink heavily and likely blacked out yesterday from drinking which is unusual for her. She reports that she will only drink approximately once per month however yesterday drink too much. She reports she may have fallen out of her bed. She reports intermittent blurry vision but nothing new or acute. Patient does report occasional headaches however her last headache was 3 days ago. She denies any weakness in her arms or legs or any difficulty speaking or swallowing. She otherwise denies fevers, chills, shortness of breath, chest pain, nausea, vomiting, diarrhea, abdominal pain, bleeding of any kind, dysuria or frequency. Patient does report some mucus in her stool today but denies any diarrhea or abdominal pain. PAST MEDICAL HISTORY Diagnosis Date Anemia previous Headaches History of sexually transmitted disease PAST SURGICAL HISTORY Procedure Laterality Date NONE NONE FAMILY HISTORY Problem Relation Age of Onset Diabetes Mother Cancer Mother Throat Leukemia Mother No Known Problems Father Diabetes Sister other (Epilepsy) Sister Social History Tobacco Use Smoking status: Former Types: Cigarettes Smokeless tobacco: Never Vaping Use Vaping Use: Never used Substance Use Topics Alcohol use: Yes Comment: socially Drug use: Never MEDICATIONS: Reviewed see mrf omeprazole (PRILOSEC) 20 mg capsule, Take 1 capsule by mouth once daily. (Patient not taking: Reported on 06/08/2023), Disp: 30 capsule, Rfl: 0 labetalol (TRANDATE) 100 mg tablet, Take 1 tablet by mouth twice daily for 7 days. (Patient not taking: Reported on 06/08/2023), Disp: 14 tablet, Rfl: 0 promethazine (PHENERGAN) 25 mg tablet, Take 1 tablet by mouth every 4 hours as needed for Nausea/Vomiting (or migraines). (Patient not taking: Reported on 06/08/2023), Disp: 30 tablet, Rfl: 0 acetaminophen (TYLENOL EXTRA STRENGTH) 500 mg tablet, Take 2 tablets by mouth every 6 hours as needed for Pain., Disp: 30 tablet, Rfl: 0 Xrjbpiaa-Sc-Mmd-Fe-FA ( VITAMIN) tab, Take 1 tablet by mouth once daily. (Patient not taking: Reported on 06/08/2023), Disp: 30 tablet, Rfl: 11 magnesium oxide (MAG-OX) 400 mg (241.3 mg magnesium) tablet, Take 1 tablet by mouth twice daily. (Patient not taking: Reported on 02/19/2019 ), Disp: 60 tablet, Rfl: 1 vit,calc76/iron/folic (PNV 29-1 ORAL), Take by mouth. (Patient not taking: Reported on 06/08/2023), Disp: , Rfl: pyridoxine, vitamin B6, (VITAMIN B-6) 50 mg tablet, Take 1 tablet by mouth once daily. (Patient not taking: Reported on 06/08/2023), Disp: 30 tablet, Rfl: 0 ALLERGIES Allergen Reactions Acetaminophen Hives Hydrocodone Hives Hydrocodone-Acetami* Hives REVIEW OF SYSTEM: All review systems reviewed negative unless otherwise known HPI Objective PHYSICAL EXAM: BP 129/82 Pulse 88 Temp (Src) 98.7 (Oral) Resp 18 Ht 5' 10 (1.78m) Wt 230 lb (104.3kg) SpO2 97% LMP 06/20/2023 BMI 33.00 kg/(m2). O2 Therapy: Room Air Physical Exam Performed: GENERAL: Alert, no distress, cooperative SKIN: Skin color, texture, turgor normal. No rashes or lesions. HEAD/SINUSES: No significant findings EYES: PERRLA, EOMI EARS: External ears normal, canals clear NOSE: Nares normal. Septum midline. OROPHARYNX: Lips, mucosa, and tongue normal. Teeth and gums normal. Oropharynx normal. NECK: No jugulovenous distention BACK: Back symmetric LUNGS: Lungs clear to auscultation, Good diaphragmatic excursion CARDIAC: Normal S1 and S2; no rubs, murmurs, or gallops ABDOMEN: Abdomen soft, non-tender, BS normal, No masses or organomegaly EXTREMITIES: NT LE, NE NEURO: Follows commands, moves all extremities, answers all questions appropriately, cranial nerves II through XII intact, right cheek numbness/altered sensation with some preserved sensation to pressure Lines, Drains, and Airways Line Duration Peripheral 12/09/23 1700 Left Hand 20 Gauge <1 day DATA: Diagnostic tests reviewed for today's visit: Most recent labs and imaging results. Latest Reference Range AND Units 12/09/23 17:06 12/09/23 17:34 12/09/23 17:35 12/09/23 17:36 (more content not included)... Normal [facility] HbA1c (Bld)on 12-10-2023 Average glucose Estimated from glycated hemoglobin (Bld) [Mass/Vol] 134 mg/dL Normal [facility] Comment on above: Order Comment: Jessica rojo Type: BLOOD SPECIMEN Ordering Facility: [facility] Address: [address] [place] [address] Result Comment: eAG: (Estimated average glucose) is a calculated value from HgbA1c and is senior sales representative of the average blood glucose level in the last 2-3 month period. Performed By: #### 2 4321-2, 02586-0 #### [facility] CLIA [id number] [address] STATES OF [facility] HbA1c (Bld) [Mass fraction] 6.3 % High 4.3-5.6 [facility] Comment on above: Order Comment: Jessica rojo Type: BLOOD SPECIMEN Ordering Facility: [facility] Address: [address] [place] [address] Result Comment: Amer [place] Diabetes Association guidelines indicate that patients with HgbA1c in the range 5.7-6.4% are at increased risk for development of diabetes, and intervention by lifestyle modification may be beneficial. HgbA1c greater or equal to 6.5% is considered diagnostic of diabetes. Performed By: #### 2 4321-2, 48374-6 #### [facility] CLIA [id number] [address] OF [facility] Lipid 1996 panelon 4 Cholesterol [Mass/Vol] 135 mg/dL Normal <200 [facility] Comment on above: Order Comment: Jessica rojo Type: BLOOD SPECIMEN Ordering Facility: [facility] Address: [address] [place] [address] Result Comment: <200 mg/dL, Desirable 200-239 mg/dL, Borderline high >239 mg/dL, High Performed By: #### 2 4321-2, 88871-3 #### [facility] CLIA [id number] [address] Cholesterol in HDL [Mass/Vol] 39 mg/dL Low >39 [facility] Comment on above: Order Comment: Jessica rojo Type: BLOOD SPECIMEN Ordering Facility: [facility] Address: [address] [place] [address] Result Comment: 40-5 9 mg/dL, Acceptable >59 mg/dL, High: Negative risk factor for coronary heart disease <40 mg/dL, Low: Positive risk factor for coronary heart disease Performed By: #### 2 4321-2, 37970-2 #### [facility] CLIA [id number] [address] Cholesterol in LDL [Mass/Vol] 80 mg/dL Normal <100 [facility] Comment on above: Order Comment: Jessica rojo Type: BLOOD SPECIMEN Order[facility]: [facility] Address: [address] [place] [address] Result Comment: <100 mg/dL, Optimal 100-129 mg/dL, Near optimal/above optimal 130-159 mg/dL, Borderline high 160-189 mg/dL, High >189 mg/dL, Very high Secondary prevention optimal LDL Cholesterol levels are recommended to be < 70 mg/dL Performed By: #### 2 4321-2, 31595-1 #### [facility] CLIA [id number] [address] Cholesterol in LDL/Cholesterol in HDL [Mass ratio] 2.05 {ratio} Normal <2.54 [facility] Comment on above: Order Comment: Jessica darrel Type: BLOOD SPECIMEN Ordering Facility: [facility] Address: [address] [place] [address] Result Comment: Refe rence: 1. National Cholesterol Education Program ATP III Guideline At-A-Glance Quick Desk Reference: National Heart, Lung, and Blood [place]. National Institutes of Health. 2001: NIH Publication No. 01-3305. 2. An International Atherosclerosis Society position paper: global recommendations for the management of dyslipidemia: executive summary, Atherosclerosis. 2014: 232(2):410-413. Performed By: #### 2 4321-2, 00673-2 #### [facility] CLIA [id number] [address] [place] Cholesterol in VLDL [Mass/Vol] 16 mg/dL Normal <30 [facility] Comment on above: Order Comment: Speci men Type: BLOOD SPECIMEN Ordering Facility: [facility] Address: [address] [place] [address] Performed By: #### 2 4321-2, 88747-5 #### [facility] CLIA [id number] [address] [place] Cholesterol non HDL [Mass/Vol] 96 mg/dL Normal <130 [facility] Comment on above: Order Comment: Speci men Type: BLOOD SPECIMEN Order[facility] Address: [address] [place] [address] Result Comment: <130 mg/dL, Optimal 130-159 mg/dL, Near optimal/above optimal 160-189 mg/dL, Borderline high 190-219 mg/dL, High >219 mg/dL, Very high Secondary prevention optimal non HDL Cholesterol levels are recommended to be <100 mg/dL Performed By: #### 2 1-2, 88761-1 #### [facility] CLIA [id number] [address] Cholesterol.total/Ch olesterol in HDL [Mass ratio] 3.46 {ratio} Normal <5.10 [facility] Comment on above: Order Comment: Speci men Type: BLOOD SPECIMEN Order[facility] Address: [address] [place] [address] Performed By: #### 2 4321-2, 51593-8 #### [facility] CLIA [id number] [address] [place] FASTING TIME 8 hrs Normal [facility] Comment on above: Order Comment: Speci men Type: BLOOD SPECIMEN Ordering [facility] Address: [address] [place] [address] Performed By: #### 2 4321-2, 87074-4 #### [facility] CLIA [id number] [address] [place] [address] [place] [facility] Triglyceride [Mass/Vol] 80 mg/dL Normal <150 [facility] Comment on above: Order Comment: Speci men Type: BLOOD SPECIMEN Ordering Facility[facility] Address: [address], [place] [address] Result Comment: <150 mg/dL, Normal 150-199 mg/dL, Borderline high 200-499 mg/dL, High >499 mg/dL, Very high Performed By: #### 2 4321-2, 99883-5 #### [facility] CLIA [id number] [address] OF [facility] MRI BRAIN WO/W IVCONon 12-09 MRI BRAIN WO/W IVCON * * *Final Report* * * DATE OF EXAM: Dec 10 2023 9:29PM [facility] 0295 - MRI BRAIN WO/W IVCON / PROCEDURE REASON: Stroke, follow up * * * * Physician Interpretation * * * * EXAMINATION: MRI BRAIN WO/W IVCON CLINICAL HISTORY: Right-sided facial numbness, stroke workup. TECHNIQUE: Routine brain MRI protocol without and with contrast including diffusion images. MQ: [id number] Contrast: 20 mL Dotarem IV COMPARISON: Noncontrast CT dated 12/09/2023. RESULT: Acute Change: There is no evidence of restricted diffusion to suggest an acute infarct. Hemorrhage: No evidence of prior parenchymal hemorrhage on the gradient echo images. Mass Lesion/ Mass Effect: No evidence of an intracranial mass or extra-axial fluid collection. No abnormal parenchymal or leptomeningeal enhancement is noted following contrast administration. No significant mass effect. Chronic Change: Scattered punctate foci of increased T2 and FLAIR signal are noted in the supratentorial white matter which is a nonspecific finding and may represent the subtle sequelae of a remote insult. Parenchyma: No significant volume loss for age. The brain parenchyma is otherwise within normal limits of signal intensity and morphology. Ventricles: Normal caliber and morphology. Skull Base: Nonspecific partial empty sella. Craniocervical junction is normal. No significant marrow replacement process. Vasculature: Major intracranial arterial structures, and dural venous sinuses show typical flow void, suggesting patency by spin echo criteria. Other: Mild nonspecific mucosal thickening of ethmoid, maxillary sinuses. The orbits and extracranial soft tissues are unremarkable. Nonspecific diffuse diffusion restriction in calvarium, likely reflecting red marrow reactivation. IMPRESSION: 1. No acute intracranial abnormality. 2. Scattered punctate foci of increased T2 and FLAIR signal are noted in the supratentorial white matter which is a nonspecific finding and may represent the subtle sequelae of a remote insult, or can be seen with migraine, correlate with history. 3. Partially empty sella, nonspecific but can be seen with idiopathic intracranial hypertension. No other imaging features of idiopathic intracranial hypertension like tortuosity of optic nerve sheaths identified. Correlate with clinical history and clinical examination, and consider further evaluation accordingly. Material Mover: RADHA Transcribe Date/Time: Dec 10 2023 9:30P Dictated by : JOSUE HARRISON MD This examination was interpreted and the report reviewed and electronically signed by: JOSUE HARRISON MD on Dec 10 2023 9:38PM EST [id number] Normal [facility] THERAPY NTon 12-10-2023 THERAPY NT HNO ID: [id number] Author: TANIKA GONZALEZ PT Service: Physical Therapy Author Type: Physical Therapist Type: Therapy (PT/OT/Speech/Resp) Filed: 12/10/2023 09:08 Note Text: PHYSICAL THERAPY MISSED VISIT SERVICE DATE: 12/10/2023 SERVICE TIME: 837 ROOM: [place] [address] Patient not seen due to Clinical Appropriateness (per OT no needs--only has facial numbness no mobility limitations--in room indep). Will D/C PT order SIGNATURE: Tanika Gonzalez PT PATIENT NAME: Lisa Mesa DATE: December 10, 2023 TIME: 9:07 AM Normal [facility] THERAPY NT HNO ID: [id number] Author: SASHA [place] OTR/L Service: Occupational Therapy Author Type: Occupational Therapist Type: Therapy (PT/OT/Speech/Resp) Filed: 12/10/2023 08:42 Note Text: OCCUPATIONAL THERAPY MISSED VISIT SERVICE DATE: 12/10/2023 SERVICE TIME: ROOM: [place] [address] Patient not seen due to (Screened). Spoke with pt, identified no acute OT needs. Pt appears to be at her baseline for mobility and self-care tasks. Pt with family support at home, reports no concerns related to return home. Will sign off at this time. SIGNATURE: Sasha Ny OTR/L PATIENT NAME: Lisa Mesa DATE: December 10, 2023 TIME: 8:41 AM Normal [facility] Basic metabolic 2000 panelon 12-09-2023 Anion gap [Moles/Vol] 15 mmol/L Normal 9-18 [facility] Comment on above: Order Comment: Speci men Type: BLOOD SPECIMEN [facility] Address: [address] [place] [address] Performed By: #### 1 9123-9, 35854-6 #### [facility] CLIA [id number] [address] [place] [address] [place] Calcium [Mass/Vol] 9.1 mg/dL Normal 8.5-10.2 [facility] Comment on above: Order Comment: Speci men Type: BLOOD SPECIMEN Order[facility] Address: [address] [place] [address] Performed By: #### 1 9123-9, 28642-2 #### [facility] CLIA [id number] [address] [place] [address] [place] Chloride [Moles/Vol] 105 mmol/L Normal 97-105 [facility] Comment on above: Order Comment: Speci men Type: BLOOD SPECIMEN Order[facility] Address: [address] [place] [address] Performed By: #### 1 4123-9, 96382-6 #### [facility] CLIA [id number] [address] [place] [address] [place] CO2 [Moles/Vol] 22 mmol/L Normal 22-30 [facility] Comment on above: Order Comment: Speci men Type: BLOOD SPECIMEN Order[facility] Address: [address] [place] [address] Performed By: #### 1 9123-9, 15035-2 #### [facility] CLIA [id number] [address] [place] [address] [place] Creatinine [Mass/Vol] 0.76 mg/dL Normal 0.58-0.96 [facility] Comment on above: Order Comment: Jessica rojo Type: BLOOD SPECIMEN Order[facility] Address: [address] [place] [address] Performed By: #### 1 9123-9, 87602-8 #### [facility] CLIA [id number] [address] [place] [address] OF [facility] Creatinine and Glomerular filtration rate.predicted panel (S/P/Bld) 110 mL/min/1.73m??? Normal >=60 [facility] Comment on above: Order Comment: Jessica rojo Type: BLOOD SPECIMEN Ordering Facility: [facility] Address: [address] [place] [address] Result Comment: Sarah mated Glomerular Filtration Rate (eGFR) is calculated using the 2020 CKD-EPI creatinine equation. This equation utilizes serum creatinine, sex, and age as parameters. The creatinine assay has traceable calibration to isotope dilution-mass spectrometry. Refer to KDIGO guidelines for clinical interpretation. In patients with unstable renal function, e.g. those with acute kidney injury, the eGFR may not accurately reflect actual GFR. Performed By: #### 1 9123-9, 61818-6 #### [facility] CLIA [id number] [address] [place] [address] [place] Glucose [Mass/Vol] 110 mg/dL High 74-99 [facility] Comment on above: Order Comment: Jessica rojo Type: BLOOD SPECIMEN Ordering Facility: [facility] Address: [address] [place] [address] Result Comment: The [place] Diabetes [employer] (ADA) provides guidance for cutoff values for fasting glucose and random glucose. The ADA defines fasting as no caloric intake for at least 8 hours. Fasting plasma glucose results between 100 to 125 mg/dL indicate increased risk for diabetes (prediabetes). Fasting plasma glucose results greater than or equal to 126 mg/dL meet the criteria for diagnosis of diabetes. In the absence of unequivocal hyperglycemia, results should be confirmed by repeat testing. In a patient with classic symptoms of hyperglycemia or hyperglycemic crisis, random plasma glucose results greater than or equal to 200 mg/dL meet the criteria for diagnosis of diabetes. Reference: Standards of Medical Care in Diabetes 2016, [place] [employer]. Diabetes Care. 2016.39(Suppl 1). Performed By: #### 1 9123-9, 29602-9 #### [facility] CLIA [id number] [address] [place] Potassium [Moles/Vol] 3.3 mmol/L Low 3.7-5.1 [facility] Comment on above: Order Comment: Speci men Type: BLOOD SPECIMEN Ordering Facility: [facility] Address: [address] [place] [address] Performed By: #### 1 9123-9, 77296-5 #### [facility] CLIA [id number] [address] STATES OF [facility] Sodium [Moles/Vol] 142 mmol/L Normal 136-144 [facility] Comment on above: Order Comment: Speci men Type: BLOOD SPECIMEN Ordering Facility: [facility] Address: [address] [place] [address] Performed By: #### 1 91239, 74096-2 #### [facility] CLIA [id number] [address] [place] Urea nitrogen [Mass/Vol] 8 mg/dL Normal 7-21 [facility] Comment on above: Order Comment: Speci men Type: BLOOD SPECIMEN Ordering Facility: [facility] Address: [address] [place] [address] Performed By: #### 1 91239, 88265-4 #### [facility] CLIA [id number] [address] [place] CBC panel Auto (Bld)on 12-08 Erythrocyte distribution width (RBC) [Ratio] 15.3 % High 11.5-15.0 [facility] Comment on above: Order Comment: Speci men Type: BLOOD SPECIMEN Ordering Facility: [facility] Address: [address] [place] [address] Performed By: #### 5 8410-2 #### [facility] CLIA [id number] [address] Hematocrit (Bld) [Volume fraction] 34.9 % Low 36.0-46.0 [facility] Comment on above: Order Comment: Speci men Type: BLOOD SPECIMEN Ordering Facility: [facility] Address: [address] [place] [address] Performed By: #### 5 8410-2 #### [facility] CLIA [id number] [address] [place] Hemoglobin (Bld) [Mass/Vol] 11.2 g/dL Low 11.5-15.5 [facility] Comment on above: Order Comment: Speci men Type: BLOOD SPECIMEN Ordering Facility: [facility] Address: [address] [place] [address] Performed By: #### 5 8410-2 #### [facility] CLIA [id number] [address] MCH (RBC) [Entitic mass] 27.3 pg Normal 26.0-34.0 [facility] Comment on above: Order Comment: Speci men Type: BLOOD SPECIMEN Ordering Facility: [facility] Address: [address] [place] [address] Performed By: #### 5 8410-2 #### [facility] CLIA [id number] [address] STATES OF [facility] MCHC (RBC) [Mass/Vol] 32.1 g/dL Normal 30.5-36.0 [facility] Comment on above: Order Comment: Speci men Type: BLOOD SPECIMEN Ordering Facility: [facility] Address: [address] [place] [address] Performed By: #### 5 8410-2 #### [facility] CLIA [id number] [address] MCV (RBC) [Entitic vol] 85.1 fL Normal 80.0-100.0 [facility] Comment on above: Order Comment: Speci men Type: BLOOD SPECIMEN Ordering Facility: [facility] Address: [address] [place] [address] Performed By: #### 5 8410-2 #### [facility] CLIA [id number] [address] [place] Nucleated RBC (Bld) [#/Vol] 10*3/uL Normal <0.01 [facility] Comment on above: Order Comment: Speci men Type: BLOOD SPECIMEN Ordering Facility: [facility] Address: [address] [place] [address] Performed By: #### 5 8410-2 #### [facility] CLIA [id number] [address] [place] Platelet mean volume (Bld) [Entitic vol] 11.2 fL Normal 9.0-12.7 [facility] Comment on above: Order Comment: Speci men Type: BLOOD SPECIMEN Ordering Facility: [facility] Address: [address] [place] [address] Performed By: #### 5 8410-2 #### [facility] CLIA [id number] [address] [place] Platelets (Bld) [#/Vol] 212 10*3/uL Normal 150-400 [facility] Comment on above: Order Comment: Speci men Type: BLOOD SPECIMEN Ordering Facility: [facility] Address: [address] [place] [address] Performed By: #### 5 8410-2 #### [facility] CLIA [id number] [address] [place] RBC (Bld) [#/Vol] 4.10 10*6/uL Normal 3.90-5.20 [facility] Comment on above: Order Comment: Speci men Type: BLOOD SPECIMEN Ordering Facility: [facility] Address: [address] [place] [address] Performed By: #### 5 8410-2 #### [facility] CLIA [id number] [address] [place] WBC (Bld) [#/Vol] 7.45 10*3/uL Normal 3.70-11.00 [facility] Comment on above: Order Comment: Speci men Type: BLOOD SPECIMEN Ordering Facility: [facility] Address: [facility] [place] [address] Performed By: #### 5 8410-2 #### [facility] CLIA [id number] 1 [place] [id number] [place] CT BRAIN ATTACK WO IVCONon 0 12-09-2023 CT BRAIN ATTACK WO IVCON * * *Final Report* * * DATE OF EXAM: Dec 09 2023 5:45PM [facility] 0502 - CT BRAIN ATTACK WO IVCON / PROCEDURE REASON: Focal neuro deficit, new, fixed, or worsening, < 4.5 hours, stroke suspected * * * * Physician Interpretation * * * * EXAMINATION: CT BRAIN ATTACK WO IVCON CLINICAL HISTORY: Brain attack. Right face numbness. TECHNIQUE: Routine CT of the brain without IV contrast. MQ: CTBA_4 CT Radiation dose: Integrated CT Dose-Length Product (DLP) for this visit = 784 mGy*cm CT Dose Reduction Employed: Automated exposure control(AEC) and iterative recon COMPARISON: CT performed 12/06/2014 RESULT: Acute ischemic change: None. ASPECT Score = 10 Hemorrhage: No evidence of acute intracranial hemorrhage. ECASS hemorrhagic transformation score: Not Applicable Mass Lesion / Mass Effect: There is no evidence of an intracranial mass or extraaxial fluid collection. No significant mass effect. Chronic change: None. Parenchyma: There is no significant volume loss. The brain parenchyma is otherwise within normal limits for age. Ventricles: Normal caliber and morphology. Other: The visualized calvarium, skull base, orbits and extracranial soft tissues are normal. Localizer images: No additional findings. IMPRESSION: No evidence of acute intracranial hemorrhage. No CT evidence of acute stroke CRITICAL TEST/RESULTS: Notification initiated at 12/09/2023 5:51PM. Communicated with ROC MUNIZ on 12/09/2023 5:51PM . CR_1 Material Mover: RADHA Transcribe Date/Time: Dec 09 2023 6:00P Dictated by : JONATHAN WEISS MD This examination was interpreted and the report reviewed and electronically signed by: JONATHAN WEISS MD on Dec 09 2023 6:11PM EST [id number] CRITICAL!! Invalid Interpretation Code [facility] CTA HEAD W IVCONon 4 CTA HEAD W IVCON * * *Final Report* * * DATE OF EXAM: Dec 09 2023 5:51PM [facility] 0022 - CTA HEAD W IVCON / PROCEDURE REASON: Focal neuro deficit, new, fixed, or worsening, < 4.5 hours, stroke suspected * * * * Physician Interpretation * * * * EXAMINATION: CTA NECK W IVCON, CTA HEAD W IVCON HISTORY: Facial numbness TECHNIQUE: Spiral high resolution axial images were obtained through the head, neck and superior mediastinum following bolus administration of intravenous contrast for CT angiography. 3D maximum intensity projection images were created, reviewed and archived . MQ: CTAHN_4 Contrast: 100 mL Omnipaque [address] Radiation dose: Integrated Dose-Length Product (DLP) for this visit = 512 mGy*cm. CT Dose Reduction Employed: Automated exposure control (AEC) COMPARISON: None. RESULT: BRAIN: Evaluation of the individual slices of the CTA demonstrates no evidence of an acute stroke. ASPECT Score = 10 Hemorrhage: No evidence of acute intracranial hemorrhage. ECASS hemorrhagic transformation score: Not Applicable NECK: Soft tissues: The soft tissue planes are maintained throughout. No evidence of a soft tissue mass in the neck or superior mediastinum. No significant lymphadenopathy is seen. Spine: There is reversal of cervical lordosis. No significant degenerative changes are present. Lung apices: The visualized lung apices are clear. CT ARTERIOGRAM: Extracranial Circulation: Aortic Arch: There is a normal branching pattern from the aortic arch. There is no significant stenosis in the proximal brachiocephalic vessels. Carotid Stenosis: Right Common: No significant stenosis. Right Internal Carotid Plaque: No significant plaque formation. Right Internal Carotid Stenosis (% by NASCET Criteria): 0 Left Common: No significant stenosis. Left Internal Carotid Plaque: No significant plaque formation. Left Internal Carotid Stenosis (% by NASCET Criteria): 0 Cervical Vertebral Arteries: Patency: Bilateral Dominance: Left Intracranial Circulation: Anterior Circulation: Both internal carotid arteries, as well as the anterior and middle cerebral arteries are patent. There are large bilateral posterior communicating arteries with relatively small P1 segments bilaterally. Vertebrobasilar Circulation: Both vertebral arteries are patent. There is a proximal basilar fenestration, seen best on smaller rlusc-ko-ffrj focused images through the region. The basilar artery is patent and relatively small secondary to large posterior communicating arteries bilaterally. Both posterior cerebral arteries are widely patent. Customer Sales Advisor (topogram) images: No additional findings. IMPRESSION: 1. No evidence of significant carotid or vertebral artery stenosis 2. Proximal basilar fenestration noted 3. No evidence of an acute intracranial large vessel occlusion Arterial blood flow was measured to detect acute large vessel occlusion by computer aided detection software: Not Performed. Concordance between software and imaging review: Not Applicable. Material Mover: PSCB Transcribe Date/Time: Dec 09 2023 6:19P Dictated by : JONATHAN WEISS MD This examination was interpreted and the report reviewed and electronically signed by: JONATHAN WEISS MD on Dec 09 2023 6:32PM EST [id number] Normal [facility] CTA NECK W IVCONon 4 CTA NECK W IVCON * * *Final Report* * * DATE OF EXAM: Dec 09 2023 5:51PM [facility] 0024 - CTA NECK W IVCON / PROCEDURE REASON: Focal neuro deficit, new, fixed, or worsening, < 4.5 hours, stroke suspected * * * * Physician Interpretation * * * * EXAMINATION: CTA NECK W IVCON, CTA HEAD W IVCON HISTORY: Facial numbness TECHNIQUE: Spiral high resolution axial images were obtained through the head, neck and superior mediastinum following bolus administration of intravenous contrast for CT angiography. 3D maximum intensity projection images were created, reviewed and archived . MQ: CTAHN_4 Contrast: 100 mL Omnipaque [address] Radiation dose: Integrated Dose-Length Product (DLP) for this visit = 512 mGy*cm. CT Dose Reduction Employed: Automated exposure control (AEC) COMPARISON: None. RESULT: BRAIN: Evaluation of the individual slices of the CTA demonstrates no evidence of an acute stroke. ASPECT Score = 10 Hemorrhage: No evidence of acute intracranial hemorrhage. ECASS hemorrhagic transformation score: Not Applicable NECK: Soft tissues: The soft tissue planes are maintained throughout. No evidence of a soft tissue mass in the neck or superior mediastinum. No significant lymphadenopathy is seen. Spine: There is reversal of cervical lordosis. No significant degenerative changes are present. Lung apices: The visualized lung apices are clear. CT ARTERIOGRAM: Extracranial Circulation: Aortic Arch: There is a normal branching pattern from the aortic arch. There is no significant stenosis in the proximal brachiocephalic vessels. Carotid Stenosis: Right Common: No significant stenosis. Right Internal Carotid Plaque: No significant plaque formation. Right Internal Carotid Stenosis (% by NASCET Criteria): 0 Left Common: No significant stenosis. Left Internal Carotid Plaque: No significant plaque formation. Left Internal Carotid Stenosis (% by NASCET Criteria): 0 Cervical Vertebral Arteries: Patency: Bilateral Dominance: Left Intracranial Circulation: Anterior Circulation: Both internal carotid arteries, as well as the anterior and middle cerebral arteries are patent. There are large bilateral posterior communicating arteries with relatively small P1 segments bilaterally. Vertebrobasilar Circulation: Both vertebral arteries are patent. 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 The basilar artery is patent and relatively small secondary to large posterior communicating arteries bilaterally. Both posterior cerebral arteries are widely patent. Customer Sales Advisor (topogram) images: No additional findings. IMPRESSION: 1. No evidence of significant carotid or vertebral artery stenosis 2. Proximal basilar fenestration noted 3. No evidence of an acute intracranial large vessel occlusion Arterial blood flow was measured to detect acute large vessel occlusion by computer aided detection software: Not Performed. Concordance between software and imaging review: Not Applicable. Material Mover: RADHA Transcribe Date/Time: Dec 09 2023 6:19P Dictated by : JONATHAN WEISS MD This examination was interpreted and the report reviewed and electronically signed by: JONATHAN WEISS MD on Dec 09 2023 6:32PM EST [id number] [facility] ED NOTEon 12-09-2023 ED NOTE HNO ID: [id number] Author: JUAN A FREEMAN RN Service: Emergency Medicine Author Type: Registered Nurse Type: ED Notes Filed: 12/09/2023 22:00 Note Text: Report called to receiving RN on 9100 Normal [facility] ED NOTE HNO ID: [id number] Author: JUAN A FREEMAN RN Service: Emergency Medicine Author Type: Registered Nurse Type: ED Notes Filed: 12/09/2023 22:01 Note Text: Performed dysphagia screening on pt, pt passed screening. Pt provided with applesauce and crackers x2. Pt has possessions and call light within reach. Pt updated on status of admit and bed being ready. Pt understanding at this time. Normal [facility] ED NOTE HNO ID: [id number] Author: MAGALIS PIERCE RN Service: Emergency Medicine Author Type: Registered Nurse Type: ED Notes Filed: 12/09/2023 17:36 Note Text: Blood sugar 116 Normal [facility] ED NOTE HNO ID: [id number] Author: DOM ALCOCER RN Service: ? Author Type: Registered Nurse Type: ED Notes Filed: 12/09/2023 16:54 Note Text: No answer for triage x1 Normal [facility] ED PROV NOTEon 12-09-2023 ED PROV NOTE HNO ID: [id number] Author: ROC MUNIZ MD Service: Emergency Medicine Author Type: Physician Type: ED Provider Notes Filed: 12/11/2023 18:52 Note Text: ED Provider Note Patient Name: Lisa Mesa : 1995 SERVICE DATE: 12/09/23 History Patient presents with: Numbness: Pt arrives ambulatory to triage and reports about 30min ago she started feeling numbness to right side of mouth spreading to right side of face. Symmetrical smile, clear speech. Decreased sensation on right side.Denies CP, denies SOB, +anxiety. Patient is a 28-year-old female who presents with right-sided face numbness. Patient states that numbness began 30 minutes prior to the patient coming to the emergency department. Patient states that she has had a headache for the past few days. She has been taking ibuprofen for it. Patient has a history of headaches but has never had numbness with her headaches. Patient states she has had some lightheadedness today. No recent illness. No fever. No difficulty talking or walking. Patient does have bruising to left side of neck but patient states that is from kissing. 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: No PAST MEDICAL HISTORY Diagnosis Date Anemia previous Headaches History of sexually transmitted disease PAST SURGICAL HISTORY Procedure Laterality Date NONE NONE FAMILY HISTORY Problem Relation Age of Onset Diabetes Mother Cancer Mother Throat Leukemia Mother No Known Problems Father Diabetes Sister other (Epilepsy) Sister Social History Tobacco Use Smoking status: Former Types: Cigarettes Smokeless tobacco: Never Vaping Use Vaping Use: Never used Substance and Sexual Activity Alcohol use: Yes Comment: socially Drug use: Never Sexual activity: Yes Partners: Male ALLERGIES Allergen Reactions Acetaminophen Hives Hydrocodone Hives Hydrocodone-Acetami* Hives Review of Systems Constitutional: Negative for activity change, appetite change, chills and fever. HENT: Negative for congestion, ear pain, rhinorrhea, sore throat and trouble swallowing. Eyes: Negative for pain, discharge and visual disturbance. Respiratory: Negative for cough and shortness of breath. Cardiovascular: Negative for chest pain. Gastrointestinal: Negative for abdominal pain, constipation, diarrhea, nausea and vomiting. Genitourinary: Negative for decreased urine volume and dysuria. Musculoskeletal: Negative for gait problem and neck pain. Skin: Negative for rash and wound. Neurological: Positive for light-headedness, numbness and headaches. Negative for dizziness, syncope and weakness. Psychiatric/Behavioral : Negative for behavioral problems and sleep disturbance. Physical Exam Vitals BP Pulse Temp Temp src Resp SpO2 Weight Height 12/09/23 1701 12/09/23 1701 12/09/23 1701 12/09/23 1701 12/09/23 1701 12/09/23 1701 12/09/23 1701 12/09/23 2241 141/97 (!) 105 36.9 ?C (98.4 ?F) Oral 20 98 % 104.3 kg (230 lb) 1.778 m (5' 10) Physical Exam Vitals and nursing note reviewed. Constitutional: General: She is not in acute distress. Appearance: Normal appearance. She is normal weight. HENT: Head: Normocephalic and atraumatic. Right Ear: External ear normal. Left Ear: External ear normal. Nose: Nose normal. No congestion. Mouth/Throat: Mouth: Mucous membranes are moist. Pharynx: Oropharynx is clear. Eyes: Extraocular Movements: Extraocular movements intact. Conjunctiva/sclera: Conjunctivae normal. Pupils: Pupils are equal, round, and reactive to light. Neck: Comments: Ecchymosis to left neck Cardiovascular: Rate and Rhythm: Normal rate and regular rhythm. Pulses: Normal pulses. Heart sounds: No murmur heard. Pulmonary: Effort: Pulmonary effort is normal. No respiratory distress. Breath sounds: Normal breath sounds. No wheezing. Abdominal: General: Abdomen is flat. Bowel sounds are normal. Palpations: Abdomen is soft. Tenderness: There is no abdominal tenderness. Musculoskeletal: General: Normal range of motion. Cervical back: Normal range of motion and neck supple. Lymphadenopathy: Cervical: No cervical adenopathy. Skin: General: Skin is warm and dry. Capillary Refill: Capillary refill takes 2 to 3 seconds. Neurological: General: No focal deficit present. Mental Status: She is alert and oriented to person, place, and time. Cranial Nerves: Cranial nerve deficit (Decreased sensation to right forehead and right cheek) present. Sensory: Sensory deficit (Patient has decreased sensation to the right side of her upper and lower right face as well as her right upper extremity) present. Motor: No weakness. Coordination: Coordination normal. Psychiatric: Mood and Affect: Mood normal. Behavior: Behavior normal. Thought Content: Thought content normal. Judgment: Judgment normal. ED STROKE DOCUMENTATION (last 48 hours) Stroke Care Path Flowsheet Row Nam (more content not included)... Normal [facility] ED PROV NOTE HNO ID: [id number] Author: ROC MUNIZ MD Service: Emergency Medicine Author Type: Physician Type: ED Provider Notes Filed: 12/09/2023 23:29 Note Text: Attending Note I evaluated the patient and performed a substantive portion of the care on this visit. I agree with the resident's findings and plan as documented except where my note differs, and I discussed the management of the patient's care with the resident. Presents with right face numbness that she noticed at 1615 hrs. She drank heavily last night. She has headaches many days of the week last time she did not have a headache was 3 days ago. She has never had an outpatient or subspecialty evaluation for headaches. She has never had numbness with headaches. She denies any weakness today. No chest pain or back pain or abdominal pain. Exam Appears well nontoxic no distress. Sitting upright in bed. Pupils are equal round reactive to light. Extraocular movements are intact. Oropharynx pink moist clear. Heart regular rate rhythm without murmurs rubs gallops. Lungs clear to auscultation without wheezes rhonchi crackles. Abdomen soft nontender nondistended without organomegaly or masses. Alert and oriented x 3. Decreased sensation to touch on the right forehead the right cheek and the right upper extremity. Normal sensation equally on bilateral lower extremities. No facial droop. She has midline tongue. Equal shoulder shrug. No drift or weakness of her upper or lower extremities. Normal [id number]-vj-wdug. Visual french normal. Critical Care I spent a total of 40 minutes of critical care time in the evaluation and management of this patient. This was necessary to treat or prevent deterioration of the following condition(s): FAMILY PROGRAM SPECIALIST impairment, which the patient had and/or has a high probability of suddenly developing. The patient received Consultation by Stroke neurology during the time that critical care was provided.I discussed the plan of care with the RESIDENT and agree with the findings documented. Critical care time excludes separately billed procedures. MD TOMAS Buenrostro JNO J 12/09/23 2329 Normal [facility] ED Triage Noteon 12-09-2023 ED Triage Note HNO ID: [id number] Author: SHERIN GUERRA APRN.EVAN Service: ? Author Type: Nurse Practitioner Type: ED Triage Notes Filed: 12/09/2023 17:06 Note Text: ED TRIAGE PROVIDER NOTE Patient Name: Lisa Mesa Service Date: 12/09/23 BRIEF HPI: This is a 28 year old female who presents to the ED with: Presents with right-sided facial numbness/decreased sensation onset 30 minutes prior to arrival. Otherwise denies any numbness or weakness, speech difficulty, visual changes. She does endorse a headache. Reports she drank heavily yesterday more so than she typically would have. Denies chest pain or shortness of breath. BRIEF EXAM: NAD Awake and Alert Non labored breathing NIHSS: 1(a). Mental Status - LOC 0 = Alert and Attentive 1(b). LOC Questions 0 = Correct age and month 1(c). LOC-Commands 0 = Both 2. Gaze 0 = Normal 3. Visual French 0 = Full 4. Facial Weakness 0 = Normal 5(a). Left Arm 0 = No drift 5(b). Right Arm 0 = No drift 6(a). Left Leg 0 = No drift 6(b). Right Leg 0 = No drift 7. Ataxia 0 = Absent 8. Sensory 1 = Mild to Moderate 9. Aphasia 0 = None 10. Dysarthria 0 = Absent 11. Neglect 0 = None NIHSS Total (0-42): 1 Decree sensation right side of face INITIAL WORKUP AND DECISION MAKING: Orders Placed This Encounter No orders of the defined types were placed in this encounter. EKG Directly roomed SIGNATURE: Sherin Guerra APRN.ENVIRONMENTAL HEALTH AND SAFETY LEADER Normal [facility] EKGon 12-09-2023 Electrocardiogram Ventricular Rate : 9 9 BPM Atrial Rate : 99 BPM P-R Interval : 186 ms QRS Duration : 80 ms Q-T Interval : 342 ms QTC Calculation(Bazett) : 438 ms Calculated P [place] : 45 degrees Calculated R [place] : 55 degrees Calculated T [place] : 27 degrees NORMAL SINUS RHYTHM NONSPECIFIC T WAVE ABNORMALITY NO PREVIOUS ECGS AVAILABLE Confirmed by MD MUNIZ JNO ([id number]) on 12/09/2023 6:44:50 PM NAME : LISA MESA PID : [id number] : 1995 Gender : Female Race : Other ORD : Procedure Date : Dec 09 2023 17:06:20 Edit Date : Dec 09 2023 18:44:54 Diagnosis: NORMAL SINUS RHYTHM NONSPECIFIC T WAVE ABNORMALITY NO PREVIOUS ECGS AVAILABLE Confirmed by MD MUNIZ JNO ([id number]) on 12/09/2023 6:44:50 PM Test Reason : Location : 4 : [facility] Overread By : MD MUNIZ JNO Edited By : MD MUNIZ JNO Referred By : , Acquired by : SONIYA ECHOLS [facility] HIGH SENSITIVITY TROPONIN [facility] 12-09-2023 Troponin T.cardiac High sensitivity method [Mass/Vol] <6 Normal <12 [facility] Comment on above: Order Comment: Jessica rojo Type: BLOOD SPECIMEN Ordering Facility: [facility] Address: [address] [place] [address] Result Comment: When assessing risk for acute coronary syndromes: In patients undergoing blood draw greater than or equal to 2 hours from symptom onset, with history of very low to moderate risk and non-ischemic ECG, an initial hs-Troponin T less than 12 ng/L AND a 1 hour delta hs-Troponin T less than 3 ng/L should be considered very low risk for 30 day MACE. Performed By: #### H STNT #### [facility] CLIA [id number] [address] [place] [address] [place] Magnesium SerPl-mCncon 12-08 Magnesium [Mass/Vol] 1.9 mg/dL Normal 1.7-2.3 [facility] Comment on above: Order Comment: Jessica rojo Type: BLOOD SPECIMEN Ordering Facility: [facility] Address: [address] [place] [address] Performed By: #### 1 9123-9, 72127-3 #### [facility] CLIA [id number] [address] PT panel Coag (PPP)on 2023 INR Coag (PPP) [Relative time] 1.1 {INR} Normal 0.9-1.3 [facility] Comment on above: Order Comment: Jessica rojo Type: BLOOD SPECIMEN Ordering Facility: [facility] Address: [address] [place] [address] Result Comment: Akosua min K Antagonist (VKA) Therapeutic Range: INR 2 to 3 (Target INR of 2.5) Note: For patients treated with VKA drugs, such as warfarin, the [place] [employer] 2012 Guideline recommends a therapeutic INR range of 2 to 3 (target INR of 2.5). This recommendation includes high-risk patients with antiphospholipid syndrome with previous arterial or venous thromboembolism, current-generation mechanical or bioprosthetic aortic heart valve replacement. Note: Patients with mechanical aortic valve replacement and additional risk factors for thromboembolic events (atrial fibrillation, previous thromboembolism, LV dysfunction, hypercoagulable conditions) or an older generation mechanical AVR (i.e., ball in-Cage) or any mechanical MVR should have a INR therapeutic range of 2.5 to 3.5 (target INR of 3). Rios CHANG, et al. Chest 2012, 141:7S-47S Kim RA, et al. [facility] 2017, 70: 252-289 Performed By: #### 3 4528-0, 12898-8 #### [facility] CLIA [id number] [address] [place] PT Coag (PPP) [Time] 11.4 s Normal 9.7-13.0 [facility] Comment on above: Order Comment: Jessica rojo Type: BLOOD SPECIMEN Ordering Facility: [facility] Address: [address] [place] [address] Performed By: #### 3 4528-0, 53379-4 #### [facility] CLIA [id number] [address] [place] [address] aPTT PPPon 12-09-2023 aPTT Coag (PPP) [Time] 26.9 s Normal 23.0-32.4 [facility] Comment on above: Order Comment: Jessica rojo Type: BLOOD SPECIMEN Ordering Facility: [facility] Address: [address] [place] [id number] Performed By: #### 3 4528-0, 52130-3 #### [facility] CLIA [id number] [address] XR HIP 2-3 VIEWS LEFTon 04-0 XR HIP 2-3 VIEWS LEFT ORIGINAL EXAMINATION: 2 XRAY VIEWS OF THE LEFT HIP 11/05/2023 11:17 am COMPARISON: None. HISTORY: ORDERING SYSTEM PROVIDED HISTORY: Reason for Exam: evaluation for pain/injury FINDINGS: There is no acute fracture or dislocation. The joint space is maintained. Acetabular over coverage is noted. The soft tissues are unremarkable. IMPRESSION: No acute bony abnormality. 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 Interpreted by: Christopher Keys Preliminary Report By: Christopher Keys Electronically signed By Christopher Keys Dictated Date: 11/05/2023 12:30:08 PM Prelim Date: 11/05/2023 12:32:55 PM Sign Date: 11/05/2023 12:32:55 PM Ordering Provider: JOSÉ MIGUEL Rosario [facility] ([place]) B-HCG SerPl-aCncon 4 HCG.beta subunit Qn 519.3 m[IU]/mL High <3.0 M [facility] Comment on above: Order Comment: Jessica rojo Type: BLOOD SPECIMEN Ordering Facility: [facility] Address: [address] [place] [address] Result Comment: CARLOS CORRIGAN COMMENTS Less than 5 mIU/mL NEGATIVE FOR 5-25 mIU/mL BORDERLINE; RETEST IN 48 HOURS IF INDICATED Greater than 25 mIU/mL POSITIVE FOR QUANTITATIVE HCG NORMAL RANGES Weeks of Gestation (Weeks Since LMP) 3-4 Weeks (9-130 mIU/mL) 4-5 Weeks (75-2600 mIU/mL) 5-6 Weeks (850-09055 mIU/mL) 6-7 Weeks (4000-649109 mIU/mL) 7-12 Weeks (43551-971966 mIU/mL) 12-16 Weeks (01678-987485 mIU/mL) 16-29 Weeks (1400-79423 mIU/mL) 29-41 Weeks (940-61505 mIU/mL) These ranges are from published literature and may not be appropriate for all cases. When HCG levels are above 4000 mIU/mL, distinction between normal and abnormal is poor. The rate of change (doubling time) may be helpful. (Reference: [facility] ) Performed By: #### H STROP #### [facility] CLIA [id number] [address] [place] [address] [place] CBC W Auto Differential pane l (Bld)on 10-16-2023 Basophils (Bld) [#/Vol] 10*3/uL Normal <0.11 [facility] Comment on above: Order Comment: Speci men Type: BLOOD SPECIMEN Ordering Facility: [facility] Address: [address] [place] [address] Performed By: #### H STROP #### [facility] CLIA [id number] [address] [place] [address] [place] Basophils/100 WBC (Bld) 0.3 % Normal [facility] Comment on above: Order Comment: Speci men Type: BLOOD SPECIMEN Ordering Facility: [facility] Address: [address] [place] [address] Performed By: #### H STROP #### [facility] CLIA [id number] [address] [place] [address] [place] Differential cell count method Nom (Bld) Auto Normal [facility] Comment on above: Order Comment: Speci men Type: BLOOD SPECIMEN Ordering Facility: [facility] Address: [address] [place] [address] Performed By: #### H STROP #### [facility] CLIA [id number] [address] [place] [address] [place] Eosinophils (Bld) [#/Vol] 0.30 10*3/uL Normal <0.46 [facility] Comment on above: Order Comment: Speci men Type: BLOOD SPECIMEN Ordering Facility: [facility] Address: [address] [place] [address] Performed By: #### H STROP #### [facility] CLIA [id number] [address] [place] [address] [place] Eosinophils/100 WBC (Bld) 3.8 % Normal [facility] Comment on above: Order Comment: Speci men Type: BLOOD SPECIMEN Ordering Facility: [facility] Address: [address] [place] [address] Performed By: #### H STROP #### [facility] CLIA [id number] [address] [place] [address] [place] Erythrocyte distribution width (RBC) [Ratio] 16.6 % High 11.5-15.0 [facility] Comment on above: Order Comment: Speci men Type: BLOOD SPECIMEN Ordering Facility: [facility] Address: [address] [place] [address] Performed By: #### H STROP #### [facility] CLIA [id number] [address] [place] [address] [place] Hematocrit (Bld) [Volume fraction] 31.1 % Low 36.0-46.0 [facility] Comment on above: Order Comment: Speci men Type: BLOOD SPECIMEN Ordering Facility: [facility] Address: [address] [place] [address] Performed By: #### H STROP #### [facility] CLIA [id number] [address] [place] [address] [place] Hemoglobin (Bld) [Mass/Vol] 10.1 g/dL Low 11.5-15.5 [facility] Comment on above: Order Comment: Speci men Type: BLOOD SPECIMEN Ordering Facility: [facility] Address: [address] [place] [address] Performed By: #### H STROP #### [facility] CLIA [id number] [address] [place] [address] [place] Immature granulocytes (Bld) [#/Vol] 0.03 10*3/uL Normal <0.10 [facility] Comment on above: Order Comment: Speci men Type: BLOOD SPECIMEN Ordering Facility: [facility] Address: [address] [place] [address] Performed By: #### H STROP #### [facility] CLIA [id number] [address] [place] [address] [place] Immature granulocytes/100 WBC (Bld) 0.4 % Normal [facility] Comment on above: Order Comment: Speci men Type: BLOOD SPECIMEN Ordering Facility: [facility] Address: [address] [place] [address] Performed By: #### H STROP #### [facility] CLIA [id number] [address] [place] [address] [place] Lymphocytes (Bld) [#/Vol] 3.31 10*3/uL Normal 1.00-4.00 [facility] Comment on above: Order Comment: Speci men Type: BLOOD SPECIMEN Ordering Facility: [facility] Address: [address] [place] [address] Performed By: #### H STROP #### [facility] CLIA [id number] [address] [place] [address] [place] Lymphocytes/100 WBC (Bld) 41.4 % Normal [facility] Comment on above: Order Comment: Speci men Type: BLOOD SPECIMEN Ordering Facility: [facility] Address: [address] [place] [address] Performed By: #### H STROP #### [facility] CLIA [id number] [address] [place] [address] [place] MCH (RBC) [Entitic mass] 27.1 pg Normal 26.0-34.0 [facility] Comment on above: Order Comment: Speci men Type: BLOOD SPECIMEN Ordering Facility: [facility] Address: [address] [place] [address] Performed By: #### H STROP #### [facility] CLIA [id number] [address] [place] [address] [place] MCHC (RBC) [Mass/Vol] 32.5 g/dL Normal 30.5-36.0 [facility] Comment on above: Order Comment: Speci men Type: BLOOD SPECIMEN Ordering Facility: [facility] Address: [address] [place] [address] Performed By: #### H STROP #### [facility] CLIA [id number] [address] [place] [address] [place] MCV (RBC) [Entitic vol] 83.4 fL Normal 80.0-100.0 [facility] Comment on above: Order Comment: Speci men Type: BLOOD SPECIMEN Ordering Facility: [facility] Address: [address] [place] [address] Performed By: #### H STROP #### [facility] CLIA [id number] [address] [place] [address] [place] Monocytes (Bld) [#/Vol] 0.41 10*3/uL Normal <0.87 [facility] Comment on above: Order Comment: Speci men Type: BLOOD SPECIMEN Ordering Facility: [facility] Address: [address] [place] [address] Performed By: #### H STROP #### [facility] CLIA [id number] [address] [place] [address] [place] Monocytes/100 WBC (Bld) 5.1 % Normal [facility] Comment on above: Order Comment: Speci men Type: BLOOD SPECIMEN Ordering Facility: [facility] Address: [address] [place] [address] Performed By: #### H STROP #### [facility] CLIA [id number] [address] [place] [address] [place] Neutrophils (Bld) [#/Vol] 3.93 10*3/uL Normal 1.45-7.50 [facility] Comment on above: Order Comment: Speci men Type: BLOOD SPECIMEN Ordering Facility: [facility] Address: [address] [place] [address] Performed By: #### H STROP #### [facility] CLIA [id number] [address] [place] [address] [place] Neutrophils/100 WBC (Bld) 49.0 % Normal [facility] Comment on above: Order Comment: Speci men Type: BLOOD SPECIMEN Ordering Facility: [facility] Address: [address] [place] [address] Performed By: #### H STROP #### [facility] CLIA [id number] [address] [place] [address] [place] Nucleated RBC (Bld) [#/Vol] 10*3/uL Normal <0.01 [facility] Comment on above: Order Comment: Speci men Type: BLOOD SPECIMEN Ordering Facility: [facility] Address: [address] [place] [address] Performed By: #### H STROP #### [facility] CLIA [id number] [address] [place] [address] [place] Nucleated RBC/100 WBC (Bld) [Ratio] 0.0 /100 WBC Normal [facility] Comment on above: Order Comment: Speci men Type: BLOOD SPECIMEN Ordering Facility: [facility] Address: [address] [place] [address] Performed By: #### H STROP #### [facility] CLIA [id number] [address] [place] [address] [place] Platelet mean volume (Bld) [Entitic vol] 11.1 fL Normal 9.0-12.7 [facility] Comment on above: Order Comment: Speci men Type: BLOOD SPECIMEN Ordering Facility: [facility] Address: [address] [place] [address] Performed By: #### H STROP #### [facility] CLIA [id number] [address] [place] [address] [place] Platelets (Bld) [#/Vol] 198 10*3/uL Normal 150-400 [facility] Comment on above: Order Comment: Speci men Type: BLOOD SPECIMEN Ordering Facility: [facility] Address: [address] [place] [address] Performed By: #### H STROP #### [facility] CLIA [id number] [address] [place] [address] RBC (Bld) [#/Vol] 3.73 10*6/uL Low 3.90-5.20 [facility] Comment on above: Order Comment: Speci men Type: BLOOD SPECIMEN Ordering Facility: [facility] Address: [address] [place] [address] Performed By: #### H STROP #### [facility] CLIA [id number] [address] [place] [address] WBC (Bld) [#/Vol] 8.00 10*3/uL Normal 3.70-11.00 [facility] Comment on above: Order Comment: Speci men Type: BLOOD SPECIMEN Ordering Facility: [facility] Address: [address] [place] [address] Performed By: #### H STROP #### [facility] CLIA [id number] [address] [place] [address] Comprehensive metabolic 2000 panelon 10-16-2023 Albumin [Mass/Vol] 3.4 g/dL Normal 3.2-5.0 [facility] Comment on above: Order Comment: Speci men Type: BLOOD SPECIMEN Ordering Facility: [facility] Address: [address] [place] [address] Performed By: #### H STROP #### [facility] CLIA [id number] [address] [place] [address] ALP [Catalytic activity/Vol] 65 U/L Normal 45-117 [facility] Comment on above: Order Comment: Speci men Type: BLOOD SPECIMEN Ordering Facility: [facility] Address: [address] [place] [address] Performed By: #### H STROP #### [facility] CLIA [id number] [address] [place] [address] [place] ALT [Catalytic activity/Vol] 14 U/L Normal 13-61 [facility] Comment on above: Order Comment: Speci men Type: BLOOD SPECIMEN Ordering Facility: [facility] Address: [address] [place] [address] Result Comment: Resu lts may be falsely depressed after the administration of Sulfasalazine and/or Sulfapyridine. Performed By: #### H STROP #### [facility] CLIA [id number] [address] [place] [address] [place] Anion gap [Moles/Vol] 5 mmol/L Normal 5-16 [facility] Comment on above: Order Comment: Speci men Type: BLOOD SPECIMEN Ordering Facility: [facility] Address: [address] [place] [address] Performed By: #### H STROP #### [facility] CLIA [id number] [address] [place] [address] [place] AST [Catalytic activity/Vol] 13 U/L Normal 8-34 [facility] Comment on above: Order Comment: Speci men Type: BLOOD SPECIMEN Ordering Facility: [facility] Address: [address] [place] [address] Result Comment: Resu lts may be falsely depressed after the administration of Sulfasalazine and/or Sulfapyridine. Performed By: #### H STROP #### [facility] CLIA [id number] [address] [place] [address] [place] Bilirubin [Mass/Vol] 0.2 mg/dL Normal 0.2-1.0 [facility] Comment on above: Order Comment: Speci men Type: BLOOD SPECIMEN Ordering Facility: [facility] Address: [address] [place] [address] Performed By: #### H STROP #### [facility] CLIA [id number] [address] [place] [address] [place] Calcium [Mass/Vol] 8.8 mg/dL Normal 8.5-10.5 [facility] Comment on above: Order Comment: Speci men Type: BLOOD SPECIMEN Ordering Facility: [facility] Address: [address] [place] [address] Performed By: #### H STROP #### [facility] CLIA [id number] [address] [place], [place] [address] [place] Chloride [Moles/Vol] 110 mmol/L High 98-107 [facility] Comment on above: Order Comment: Speci men Type: BLOOD SPECIMEN Ordering Facility: [facility] Address: [address] [place] [address] Performed By: #### H STROP #### [facility] CLIA [id number] [address] [place] [address] [place] CO2 [Moles/Vol] 24 mmol/L Normal 21-32 [facility] Comment on above: Order Comment: Speci men Type: BLOOD SPECIMEN Ordering Facility: [facility] Address: [address] [place] [address] Performed By: #### H STROP #### [facility] CLIA [id number] [address] [place] [address] [place] Creatinine [Mass/Vol] 0.62 mg/dL Normal 0.51-0.95 [facility] Comment on above: Order Comment: Speci men Type: BLOOD SPECIMEN Ordering Facility: [facility] Address: [address] [place] [address] Result Comment: Kelsey ents receiving either N-Acetylcysteine (NAC) or Metamizole prior to venipuncture, may have falsely depressed results. Performed By: #### H STROP #### [facility] CLIA [id number] [address] [place] [address] [place] Creatinine and Glomerular filtration rate.predicted panel (S/P/Bld) 125 mL/min/1.73m??? Normal >=60 [facility] Comment on above: Order Comment: Speci men Type: BLOOD SPECIMEN Ordering Facility: [facility] Address: [address] [place] [address] Result Comment: Sarah mated Glomerular Filtration Rate (eGFR) is calculated using the 2020 CKD-EPI creatinine equation. This equation utilizes serum creatinine, sex, and age as parameters. The creatinine assay has traceable calibration to isotope dilution-mass spectrometry. Refer to KDIGO guidelines for clinical interpretation. In patients with unstable renal function, e.g. those with acute kidney injury, the eGFR may not accurately reflect actual GFR. Performed By: #### H STROP #### [facility] CLIA [id number] [address] [place] [address] [place] Glucose [Mass/Vol] 122 mg/dL High 70-100 [facility] Comment on above: Order Comment: Jessica rojo Type: BLOOD SPECIMEN Ordering Facility: [facility] Address: [address] [place], [place] [id number] Result Comment: The [place] [employer] (ADA) provides guidance for cutoff values for fasting glucose and random glucose. The ADA defines fasting as no caloric intake for at least 8 hours. Fasting plasma glucose results between 100 to 125 mg/dL indicate increased risk for diabetes (prediabetes). Fasting plasma glucose results greater than or equal to 126 mg/dL meet the criteria for diagnosis of diabetes. In the absence of unequivocal hyperglycemia, results should be confirmed by repeat testing. In a patient with classic symptoms of hyperglycemia or hyperglycemic crisis, random plasma glucose results greater than or equal to 200 mg/dL meet the criteria for diagnosis of diabetes. Reference: Standards of Medical Care in Diabetes 2016, [place] [employer]. Diabetes Care. 2016.39(Suppl 1). Results may be falsely elevated after the administration of Sulfapyridine. Results may be falsely depressed after the administration of Sulfasalazine. Performed By: #### H STROP #### [facility] CLIA [id number] [address] [place] [address] [place] Potassium [Moles/Vol] 3.8 mmol/L Normal 3.5-5.1 [facility] Comment on above: Order Comment: Jessica rojo Type: BLOOD SPECIMEN Ordering Facility: [facility] Address: [address] [place] [address] Performed By: #### H STROP #### [facility] CLIA [id number] [address] [place], [place] [address] [place] Protein [Mass/Vol] 6.9 g/dL Normal 6.0-8.5 [facility] Comment on above: Order Comment: Speci men Type: BLOOD SPECIMEN Ordering Facility: [facility] Address: [address] [place] [address] Performed By: #### H STROP #### [facility] CLIA [id number] [address] [place] [address] [place] Sodium [Moles/Vol] 139 mmol/L Normal 136-145 [facility] Comment on above: Order Comment: Speci men Type: BLOOD SPECIMEN Ordering Facility: [facility] Address: [address] [place] [address] Performed By: #### H STROP #### [facility] CLIA [id number] [address] [place] [address] [place] Urea nitrogen [Mass/Vol] 8 mg/dL Normal 7-26 [facility] Comment on above: Order Comment: Speci men Type: BLOOD SPECIMEN Ordering Facility: [facility] Address: [address] [place] [address] Performed By: #### H STROP #### [facility] CLIA [id number] [address] [place] [address] [place] ED NOTEon 10-16-2023 ED NOTE HNO ID: [id number] Author: MALINDA THACKER RN Service: ? Author Type: Registered Nurse Type: ED Notes Filed: 10/16/2023 04:28 Note Text: Pt had on 10/07 pt states last night she developed left groin and left flank pain. Pt denies vomiting. Pt c/o nausea and diarrhea. Pt c/o lightheaded. PT c/o blood with urination. Pt seen at [facility] last night and prescribed misoprospol. Normal [facility] ED PROV NOTEon 10-16-2023 ED PROV NOTE HNO ID: [id number] Author: RUBEN QUINTANA MD Service: ? Author Type: Physician Type: ED Provider Notes Filed: 10/16/2023 07:07 Note Text: ED Provider Note Patient Name: Lisa Mesa : 1995 SERVICE DATE: 10/16/23 History Patient presents with: Flank Pain: left Groin Pain: Left Patient is a 28-year-old female presenting for evaluation of left-sided abdominal pain. She had a surgical performed on October 07. She has been having increased bleeding over the last few days. She has also noticed pain over the last few days. She is not having any significant pain previously. She describes a burning in her left pelvis up into her left flank. Today she felt lightheaded and nauseous. She denies any vomiting. She denies any fevers or chills. She was seen at [facility] last evening but they did not have ultrasound services so 1 was not performed. Blood work was reassuring so she was given misoprostol there and a second dose that she took at home later. She continues to have large clots despite this. This prompted her to come back in for evaluation. 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: Patient PAST MEDICAL HISTORY Diagnosis Date Anemia previous Headaches History of sexually transmitted disease PAST SURGICAL HISTORY Procedure Laterality Date NONE NONE FAMILY HISTORY Problem Relation Age of Onset Diabetes Mother Cancer Mother Throat Leukemia Mother No Known Problems Father Diabetes Sister other (Epilepsy) Sister Social History Tobacco Use Smoking status: Former Types: Cigarettes Smokeless tobacco: Never Vaping Use Vaping Use: Never used Substance and Sexual Activity Alcohol use: Yes Comment: socially Drug use: Never Sexual activity: Yes Partners: Male ALLERGIES Allergen Reactions Hydrocodone-Acetami* Hives Review of Systems All other systems reviewed and are negative. Physical Exam Vitals [10/16/23 0425] BP Pulse Temp Temp src Resp SpO2 Weight Height 134/103 (!) 91 37.2 ?C (99 ?F) Oral 18 99 % 104.3 kg (230 lb) 1.778 m (5' 10) Physical Exam HENT: Head: Normocephalic. Cardiovascular: Rate and Rhythm: Normal rate and regular rhythm. Pulmonary: Effort: Pulmonary effort is normal. Breath sounds: Normal breath sounds. Abdominal: Palpations: Abdomen is soft. Tenderness: There is no abdominal tenderness. Musculoskeletal: General: Normal range of motion. Neurological: General: No focal deficit present. Mental Status: She is alert. Diagnostic Testing ED Labs Ordered and Reviewed HCG QUANTITATIVE - Abnormal; Notable for the following components: Result Value Ref Range hCG Quantitative, Blood 519.3 (*) <3.0 mIU/mL All other components within normal limits CBC + DIFF - Abnormal; Notable for the following components: RBC 3.73 (*) 3.90 - 5.20 m/uL Hemoglobin 10.1 (*) 11.5 - 15.5 g/dL Hematocrit 31.1 (*) 36.0 - 46.0 % RDW-CV 16.6 (*) 11.5 - 15.0 % All other components within normal limits COMP METABOLIC PANEL - Abnormal; Notable for the following components: Glucose 122 (*) 70 - 100 mg/dL Chloride 110 (*) 98 - 107 mmol/L All other components within normal limits URINALYSIS WITH MICROSCOPIC, REFLEX CULTURE - Abnormal; Notable for the following components: Hemoglobin/Blood,Ur 3+ (*) Negative RBC, Urine >25 /HPF (*) 0-3 /HPF Calcium Oxalate Crystals Moderate (*) None Seen /HPF All other components within normal limits Procedures ED Course / Clinical Impression Clinical Impressions as of 10/16/23 0707 Abnormal vaginal bleeding - S/p MDM / Disposition / Plan I reviewed the patient's clinisync documents in [facility]. This confirms that she did not have an ultrasound. She had a stable hemoglobin 10. She is Rh+. Ultrasound performed here this evening does not show any evidence of retained products. Endometrial stripe is within normal limits. There is no evidence of abnormal flow. There is no evidence of torsion or hydrosalpinx to suggest abscess. She does not have any obvious signs of uterine perforation. Laboratory evaluation does not show leukocytosis to suggest infection such as endometritis or perforation. Abdominal examination is benign and not indicative of appendicitis, colitis, diverticulitis, or other acute intra-abdominal process. Her hemoglobin has not worsened to suggest significant bleeding. Quantitative hCG is 519. She has no evidence of liver or renal failure. She has no evidence of urinary infection. She does have some calcium oxalate crystals which could be contributing to the left flank pain. The patient does not have any significant bleeding here. She did show me pictures of the clot she had at home. We discussed that she could continue to have some bleeding with clots after having had this procedure. I discussed patient with Dr. Cantrell. He did not recommend any additional medications or treatment today. He recommended calling the office today to [facility] (more content not included)... 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 Positive beta-hCG. Reported approximately one week ago. Pelvic pain and bleeding. Positive beta-hCG measuring 519. TECHNIQUE: Sonography of the pelvis was performed by transvaginal techniques. Images were obtained and stored in a permanent archive. MQ: [id number] COMPARISON: None. RESULT: Uterus: - Orientation: Anteverted - Size: 13.7 x 8.0 x 8.1 cm - Myometrium: homogeneous echogenicity - Endometrium: Unremarkable. Measures up to 0.5 cm in thickness. No abnormal endometrial or subendometrial blood flow. - Cervix: Appears closed. Gestation: - Intrauterine gestational sac: Not seen Right ovary: - Size : 4.9 x 2.9 x 2.9 cm - Contains a 1.9 x 1.9 x 2.0 cm cystic lesion with appearance most compatible with a corpus luteal cyst. Left ovary: - Size: 3.2 x 1.4 x 3.5 cm - Normal sonographic appearance with physiologic follicles. Pelvis free fluid: None. IMPRESSION: Positive test with no intrauterine gestational sac visualized. Findings represent of unknown location. Differential diagnosis includes early normal, failed early, or ectopic . Recommend follow-up serial beta-hCG values. Ultrasound follow-up should be considered as clinically warranted. No endometrial thickening or abnormal endometrial/subendomet rial blood flow. Right ovary contains a 2.0 cm cystic lesion; appearance is most compatible with a corpus luteal cyst. No free fluid. * * * * * * * * ADDENDUM #1 * * * * * * * * COMMUNICATION: Communicated with RUBEN QUINTANA on 10/16/2023 7:05 AM via verbal communication. Material Mover: RADHA Transcribe Date/Time: Oct 16 2023 7:07A Dictated by : EMILIO WYATT DO This examination was interpreted and the report reviewed and electronically signed by: EMILIO WYATT DO on Oct 16 2023 6:47AM EST This document has been addended by: EMILIO WYATT DO on Oct 16 2023 7:11AM EST [id number] Normal [facility] Urinalysis complete panel (U )on 10-16-2023 Bacteria LM.HPF (Urine sed) [#/Area] None Seen Normal None Seen [facility] Comment on above: Order Comment: Speci men Type: BLOOD SPECIMEN Ordering Facility: [facility] Address: [address] [place] [address] Performed By: #### H STROP #### [facility] CLIA [id number] [address] [place] [address] [place] Bilirubin Ql (U) Negative Normal Negative [facility] Comment on above: Order Comment: Speci men Type: BLOOD SPECIMEN Ordering Facility: [facility] Address: [address] [place] [address] Performed By: #### H STROP #### [facility] CLIA [id number] [address] [place] [address] [place] CALCIUM OXALATE CRYSTALS (UA) Moderate Abnormal None Seen [facility] Comment on above: Order Comment: Speci men Type: BLOOD SPECIMEN Ordering Facility: [facility] Address: [address] [place] [address] Performed By: #### H STROP #### [facility] CLIA [id number] [address] [place] [address] [place] Clarity (Unsp spec) Clear Normal Clear [facility] Comment on above: Order Comment: Speci men Type: BLOOD SPECIMEN Ordering Facility: [facility] Address: [address] [place] [address] Performed By: #### H STROP #### [facility] CLIA [id number] [address] [place] [address] [place] Color (U) Yellow Normal Yellow [facility] Comment on above: Order Comment: Speci men Type: BLOOD SPECIMEN Ordering Facility: [facility] Address: [address] [place] [address] Performed By: #### H STROP #### [facility] CLIA [id number] [address] [place] [address] [place] Epithelial cells LM.HPF (Urine sed) [#/Area] Few Normal [facility] Comment on above: Order Comment: Speci men Type: BLOOD SPECIMEN Ordering Facility: [facility] Address: [address] [place] [address] Performed By: #### H STROP #### [facility] CLIA [id number] [address] [place] [address] Glucose Test strip (U) [Mass/Vol] Negative Normal Negative [facility] Comment on above: Order Comment: Speci men Type: BLOOD SPECIMEN Ordering Facility: [facility] Address: [address] [place] [address] Performed By: #### H STROP #### [facility] CLIA [id number] [address] [place] [address] OF [facility] Hemoglobin Ql (U) 3+ Abnormal Negative [facility] Comment on above: Order Comment: Speci men Type: BLOOD SPECIMEN Ordering Facility: [facility] Address: [address] [place] [address] Performed By: #### H STROP #### [facility] CLIA [id number] [address] [place] [address] [place] Ketones Ql (U) Negative Normal Negative [facility] Comment on above: Order Comment: Speci men Type: BLOOD SPECIMEN Ordering Facility: [facility] Address: [address] [place] [address] Performed By: #### H STROP #### [facility] CLIA [id number] [address] [place] [address] [place] Leukocyte esterase Test strip Ql (U) Negative Normal Negative [facility] Comment on above: Order Comment: Speci men Type: BLOOD SPECIMEN Ordering Facility: [facility] Address: [address] [place] [address] Performed By: #### H STROP #### [facility] CLIA [id number] [address] [place] [address] [place] Nitrite Ql (U) Negative Normal Negative [facility] Comment on above: Order Comment: Speci men Type: BLOOD SPECIMEN Ordering Facility: [facility] Address: [address] [place] [address] Performed By: #### H STROP #### [facility] CLIA [id number] [address] [place] [address] [place] pH (U) 6.0 [pH] Normal 5.0-8.0 [facility] Comment on above: Order Comment: Speci men Type: BLOOD SPECIMEN Ordering Facility: [facility] Address: [address] [place] [address] Performed By: #### H STROP #### [facility] CLIA [id number] [address] [place] [address] [place] Protein (U) [Mass/Vol] Negative Normal Negative [facility] Comment on above: Order Comment: Speci men Type: BLOOD SPECIMEN Ordering Facility: [facility] Address: [address] [place] [address] Performed By: #### H STROP #### [facility] CLIA [id number] [address] [place] [address] [place] RBC LM.HPF (Urine sed) [#/Area] /[HPF] Abnormal 0-3 /HPF [facility] Comment on above: Order Comment: Speci men Type: BLOOD SPECIMEN Ordering Facility: [facility] Address: [address] [place] [address] Performed By: #### H STROP #### [facility] CLIA [id number] [address] [place] [address] [place] Specific gravity (U) [Rel density] 1.006 Normal 1.005-1.030 [facility] Comment on above: Order Comment: Speci men Type: BLOOD SPECIMEN Ordering Facility: [facility] Address: [address] [place] [address] Performed By: #### H STROP #### [facility] CLIA [id number] [address] [place] [address] [place] Urobilinogen Ql (U) Negative Normal Negative [facility] Comment on above: Order Comment: Speci men Type: BLOOD SPECIMEN Ordering Facility: [facility] Address: [address] [place] [address] Performed By: #### H STROP #### [facility] CLIA [id number] [address] [place] [address] [place] WBC LM.HPF (Urine sed) [#/Area] 0-5 /HPF Normal 0-5 /HPF [facility] Comment on above: Order Comment: Speci men Type: BLOOD SPECIMEN Ordering Facility: [facility] Address: [address] [place] [address] Performed By: #### H STROP #### [facility] CLIA [id number] [address] [place] [address] [place] BASIC METABOLIC PANELon 03- Anion gap [Moles/Vol] 8.4 mmol/L Low 11-23 [facility] Comment on above: Performed By: #### D SANA #### [facility] [address] [place] [address] Calcium [Mass/Vol] 8.4 mg/dL Low 8.5-10.1 [facility] Comment on above: Performed By: #### D SANA #### [facility] [address] [place] [address] Chloride [Moles/Vol] 112 mmol/L High 98-107 [facility] Comment on above: Performed By: #### D SANA #### [facility] [address] [place] [address] CO2 [Moles/Vol] 26.0 mmol/L Normal 21-32 [facility] Comment on above: Performed By: #### D SANA #### [facility] [address] [place] [address] Creatinine [Mass/Vol] 0.80 mg/dL Normal 0.55-1.02 [facility] Comment on above: Performed By: #### D SANA #### [facility] [address] [place] [address] GFR > 60.0 [facility] Comment on above: Performed By: #### D SANA #### [facility] [address] [place] [address] GFR AM > 60.0 [facility] Comment on above: Result Comment: THE NORMAL LEVEL OF GFR VARIES ACCORDING TO AGE, SEX, AND BODY SIZE. A GFR LEVEL OF LESS THAN 60 ML/MIN REPRESENTS LOSS OF THE ADULT LEVEL OF NORMAL KIDNEY FUNCTION. Performed By: #### D SANA #### [facility] [address] [place] [address] Glucose [Mass/Vol] 153 mg/dL High 70-100 [facility] Comment on above: Performed By: #### D SANA #### [address] [place] [address] Potassium [Moles/Vol] 3.8 mmol/L Normal 3.5-5.1 [facility] Comment on above: Performed By: #### D SAAN #### [address] [place] [address] Sodium [Moles/Vol] 142 mmol/L Normal 136-145 [facility] Comment on above: Performed By: #### D SANA #### [address] [address] Urea nitrogen [Mass/Vol] 9.0 mg/dL Normal 7-18 [facility] Comment on above: Performed By: #### D SANA #### [address] [place] [address] HCG URINEon 10-15-2023 Beta HCG ( test) Ql (U) Positive [facility] Comment on above: Order Comment: What Is Urine Source? Clean [place] Performed By: #### D SANA #### [facility] [address] [place] [address] URINALYSISon 10-15-2023 Color (U) Savita [facility] Comment on above: Order Comment: What Is Urine Source? [place] What Is Urine Source? [place] Performed By: #### U A, UMIC #### [address] [address] URINE MICROSCOPICon 03-18-20 24 URINE BACTERIA FEW Normal <1+ [facility] Comment on above: Performed By: #### U A UMIC #### [address] [place] [address] URINE WBC 0-3 Normal 0-3 [facility] Comment on above: Performed By: #### U A UMIC #### [address] [address] RBC (U) [#/Vol] /uL Normal 0-2 [facility] Comment on above: Performed By: #### U A UMIC #### [address] [address] UR SQUAM EPITH MODERATE Normal NONE-MANY [facility] Comment on above: Performed By: #### U Charissa UMIC #### [address] [address] CBC with AUTO DIFFon 024 BAS0 % 0.30 % Normal 0-2 [facility] Comment on above: Performed By: #### C BC #### [address] [address] Basophils (Bld) [#/Vol] 0.0 10*3/uL Normal 0-0.1 [facility] Comment on above: Performed By: #### C BC #### [address] [address] Eosinophils (Bld) [#/Vol] 0.2 10*3/uL Normal 0.0-1.80 [facility] Comment on above: Performed By: #### C BC #### [address] [address] Eosinophils/100 WBC (Bld) 1.7 % Normal 0-8 [facility] Comment on above: Performed By: #### C BC #### [address] [address] GRAN # 6.5 K/uL Normal 2.2-9.1 [facility] Comment on above: Performed By: #### C BC #### [address] [address] GRAN % 69.1 % Normal 42-80 [facility] Comment on above: Performed By: #### C BC #### [address] [address] Hematocrit (Bld) [Volume fraction] 30.0 % Low 37.0-47.0 [facility] Comment on above: Performed By: #### C BC #### [facility] [address] [place] [address] Hemoglobin (Bld) [Mass/Vol] 10.0 g/dL Low 12.0-16.0 [facility] Comment on above: Performed By: #### C BC #### [facility] [address] [place] [address] Lymphocytes (Bld) [#/Vol] 2.3 10*3/uL Normal 1.0-4.0 [facility] Comment on above: Performed By: #### C BC #### [facility] [address] [place] [address] Lymphocytes/100 WBC (Bld) 24.5 % Normal 16-48 [facility] Comment on above: Performed By: #### C BC #### [facility] [address] [place] [address] MCV (RBC) [Entitic vol] 81.9 fL Normal 80-97 [facility] Comment on above: Performed By: #### C BC #### [address] [place] [address] MEAN CORPUSCULAR HGB 27.2 pg Normal 26.0-32.0 [facility] Comment on above: Performed By: #### C BC #### [address] [place] [address] MEAN CORPUSCULAR HGB CONC 33.2 g/dL Normal 31.0-36.0 [facility] Comment on above: Performed By: #### C BC #### [address] [place] [address] MONO DISTRIB WIDTH 15.47 Normal 0-20 [facility] Comment on above: Result Comment: For ED adult patients suspected of sepsis, MDW<=20.0 does not rule out sepsis or risk of sepsis Performed By: #### C BC #### [facility] [address] [place] [address] Monocytes (Bld) [#/Vol] 0.4 10*3/uL Normal 0.1-1.7 [facility] Comment on above: Performed By: #### C BC #### [facility] [address] [place] [address] Monocytes/100 WBC (Bld) 4.4 % Normal 3-9 [facility] Comment on above: Performed By: #### C BC #### [facility] [address] [place] [address] Platelet mean volume (Bld) [Entitic vol] 8.8 fL Normal 6.6-10.5 [facility] Comment on above: Performed By: #### C BC #### [facility] [address] [place] [address] Platelets (Bld) [#/Vol] 165 10*3/uL Normal 140-450 [facility] Comment on above: Performed By: #### C BC #### [facility] [address] [place] [address] RBC (Bld) [#/Vol] 3.67 10*6/uL Low 4.20-5.50 [facility] Comment on above: Performed By: #### C BC #### [facility] [address] [place] [address] RED CELL DISTRI WIDTH 17.2 % High 11.0-15.5 [facility] Comment on above: Performed By: #### C BC #### [facility] [address] [place] [address] WBC (Bld) [#/Vol] 9.4 10*3/uL Normal 4.0-11.0 [facility] Comment on above: Performed By: #### C BC #### [facility] [address] [place] [address] ED.PDOCon 10-14-2023 ED.PDOC LISA MESA Female [id number] Attending provider: [facility] [id number] Juan Tidwell 1995 28 DOS: 10/14/23 Hx/Exam - History of Present Illness Chief Complaint: VAGINAL BLEEDING Additional Comments: P2 female who is 28 years old, presenting secondary to vaginal bleeding. The patient states she had a surgical 6 days ago, subsequently has noted over the last 24 hours development of vaginal bleeding. The patient states that she saturated 1 feminine hygiene product this evening, she is primarily concerned about the consistency of the discharge which is clot-like material. 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 She admits to pelvic cramping, she rates her pain as an 8/10 intensity, she denies fever, denies purulent drainage. Patient arrives ambulatory by private vehicle and appears to be in no distress. - Review of Systems All Other Systems: Pertinent Positives in HPI, All Other Systems Negative - Past Medical History ED PMH: Yes Anemia, Yes Anxiety, Yes Diabetes (pre-diabetic), Yes HTN (gestational/pre-e) - Social History Smoking Status: Current some day smoker Hx Alcohol Use: Yes (Occasional) Living Conditions: Family - Physical Exam Other Exam Findings: General: Awake alert cooperative, no distress. Fluent speech, no conversational dyspnea. HEENT: Head normocephalic atraumatic. Oral mucosa pink moist with no signs of dehydration. Eyes PERRLA, EOMI. Sclera non-icteric. Neck: Trachea is midline. Cardiovascular: Heart regular rate and rhythm with no murmurs rubs or gallops. Respiratory: Clear to auscultation. No signs of distress. Abdomen: Soft, no rigidity, no guarding, no pulsatile abdominal masses. Patient has intact bowel sounds ?4 quadrants. Negative Graves sign, negative McBurney's point tenderness. No peritoneal findings. Extremities: No cyanosis clubbing or edema. Vascular: Pulses intact in all 4 extremities without radiofemoral delay. No signs of DVT. Neurologic: GCS 15, cranial nerves II through XII intact. No focal motor or sensory deficits measurable on exam. Back: No CVA tenderness. No meningeal findings. No spasm, bruising, abrasions, or outward signs of trauma. Joints: No angular deformities, grossly normal. No swelling, erythema, or signs of septic arthritis. Skin: Warm and dry, no pallor mottling or rashes. Psych: Euthymic, with normal affect. 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 Pelvic exam reveals open cervical os, clot is clear to the vaginal vault with 4 large cotton-tipped applicators. No laceration or iatrogenic injury evident on my exam, no hemorrhage. - Source of History Source of History: Nursing Notes/Vital Signs/Triage Reviewed and Agree Source of History: Old Medical Records Reviewed Note(s) - Physician Notes Additional Notes, See Orders for Details: 10/14/23 23:00 28-year-old female presenting to the emergency department secondary to vaginal bleeding after surgical . Given the patient's presenting complaint, differentials include implantation bleeding, ectopic , spontaneous , threatened , uterine rupture, menorrhagia, genitourinary trauma, STI, uterine AVM, ovarian cyst, ovarian torsion, foreign body, coagulopathy, endometrial cancer, cervical cancer, drug-induced (hormones, anticoagulants, chemotherapeutic agents, steroids, antipsychotics), endometrial polyps, uterine fibroids, endocrine dysfunction, GI source, hemorrhagic cystitis, neoplasm. On my exam the patient's pelvic reveals no active hemorrhage. Patient has clot that was easily cleared from the vaginal vault, I do not see any products of conception in the cervical os at this time. I see no iatrogenic complications from the procedure. Laboratory studies have been obtained, the patient's baseline hemoglobin is 10.4, today 10.0. Patient reports being Rh positive, tested in clinic prior to procedure. No evidence of thrombocytopenia. I discussed patient's care with Dr. Jacobo who is covering the GOVERNMENT CLERK service. Patient arrives after hours, ultrasound considered but unable to be ordered due to lack of coverage, Dr. Jacobo states this can be arranged as an outpatient. She recommends 800 mcg of intravaginal Cytotec with a repeat dose in 24 hours. She will refer the patient to [facility] for outpatient follow-up. Return indications been expressed. Patient be discharged home in stable condition. Based upon my history, physical exam, evaluation and judgement regarding the aforementioned differentials, at the time of this assessment, I do not see evidence to support the presence of any life, neurologic, or limb threatening pathology in my considered differentials. Alternate non life threatening pathology has been considered, and has been ruled out based upon t (more content not included)... Normal [facility] Laboratory studies (set)on 0 10-14-2023 Appearance (U) CLEAR [facility] Bilirubin Ql (U) NEGATIVE [facility] Color (U) [facility] Glucose Ql (U) NEGATIVE [facility] HCG Qn (U) [facility] Ketones Ql (U) NEGATIVE [facility] Leukocyte esterase Test strip Ql (U) NEGATIVE [facility] Nitrite Ql (U) NEGATIVE [facility] pH (U) 8.0 [pH] 5.0-9.0 [facility] Protein Ql (U) NEGATIVE [facility] RBC (U) [#/Vol] High NEGATIVE [facility] RBC LM.HPF (Urine sed) [#/Area] 0-2 [facility] Specific gravity (U) [Rel density] 1.020 1.003-1.035 [facility] Urine Bacteria <1+ [facility] Urine Squamous Epithelial Cells NONE-MANY [facility] Urine WBC 0-3 [facility] Urobilinogen Ql (U) 0.2 E.U./dL <=1.0 [facility] Anion gap [Moles/Vol] 8.4 mmol/L Low 11-23 [facility] Basophils (Bld) [#/Vol] 0.0 10*3/uL 0-0.1 [facility] Basophils/100 WBC (Bld) 0.30 % 0-2 [facility] Calcium [Mass/Vol] 8.4 mg/dL Low 8.5-10.1 [facility] Chloride [Moles/Vol] 112 mmol/L High 98-107 [facility] CO2 [Moles/Vol] 26.0 mmol/L 21-32 [facility] Creatinine [Mass/Vol] 0.80 mg/dL 0.55-1.02 [facility] Eosinophils (Bld) [#/Vol] 0.2 10*3/uL 0.0-1.80 [facility] Eosinophils/100 WBC (Bld) 1.7 % 0-8 [facility] Erythrocyte distribution width (RBC) [Ratio] 17.2 % High 11.0-15.5 [facility] Estimated GFR () [facility] Comment on above: THE NORMAL LEVEL OF GFR VARIES ACCORDING TO AGE, SEX, AND BODY SIZE. A GFR LEVEL OF LESS THAN 60 ML/MIN REPRESENTS LOSS OF THE ADULT LEVEL OF NORMAL KIDNEY FUNCTION. GFR/1.73 sq M.predicted among non-blacks MDRD (S/P/Bld) [Vol rate/Area] [facility] Glucose [Mass/Vol] 153 mg/dL High 70-100 [facility] Granulocytes (Bld) [#/Vol] 6.5 10*3/uL 2.2-9.1 [facility] Granulocytes/100 WBC (Bld) 69.1 % 42-80 [facility] Hematocrit (Bld) [Volume fraction] 30.0 % Low 37.0-47.0 [facility] Hemoglobin (Bld) [Mass/Vol] 10.0 g/dL Low 12.0-16.0 [facility] Lymphocytes (Bld) [#/Vol] 2.3 10*3/uL 1.0-4.0 [facility] Lymphocytes/100 WBC (Bld) 24.5 % 16-48 [facility] MCH (RBC) [Entitic mass] 27.2 pg 26.0-32.0 [facility] MCHC (RBC) [Mass/Vol] 33.2 g/dL 31.0-36.0 [facility] MCV (RBC) [Entitic vol] 81.9 fL 80-97 [facility] Monocyte distribution width Auto (Bld) [Entitic vol] 15.47 0-20 [facility] Comment on above: For ED adult patient s suspected of sepsis, MDW<=20.0 does not rule out sepsis or risk of sepsis Monocytes (Bld) [#/Vol] 0.4 10*3/uL 0.1-1.7 [facility] Monocytes/100 WBC (Bld) 4.4 % 3-9 [facility] Platelet mean volume (Bld) [Entitic vol] 8.8 fL 6.6-10.5 [facility] Platelets (Bld) [#/Vol] 165 10*3/uL 140-450 [facility] Potassium [Moles/Vol] 3.8 mmol/L 3.5-5.1 [facility] RBC (Bld) [#/Vol] 3.67 10*6/uL Low 4.20-5.50 [facility] Sodium [Moles/Vol] 142 mmol/L 136-145 [facility] Urea nitrogen [Mass/Vol] 9.0 mg/dL 7-18 [facility] WBC (Bld) [#/Vol] 9.4 10*3/uL 4.0-11.0 [facility] URINALYSISon 10-14-2023 Appearance (U) Clear Normal CLEAR [facility] Comment on above: Order Comment: What Is Urine Source? [place] What Is Urine Source? [place] Performed By: #### U A UMIC #### [facility] [address] [place] [address] Hemoglobin Ql (U) 3+ Abnormal NEGATIVE [facility] Comment on above: Order Comment: What Is Urine Source? [place] What Is Urine Source? [place] Performed By: #### U A, UMIC #### [facility] [address] [place] [address] pH (U) 8.0 [pH] Normal 5.0-9.0 [facility] Comment on above: Order Comment: What Is Urine Source? [place] What Is Urine Source? [place] Performed By: #### U A, UMIC #### [facility] [address] [place] [address] URINE BILIRUBIN - DIPSTICK Negative Normal NEGATIVE [facility] Comment on above: Order Comment: What Is Urine Source? [place] What Is Urine Source? [place] Performed By: #### U A, UMIC #### [address] [address] URINE GLUCOSE -DIPSTICK Negative Normal NEGATIVE [facility] Comment on above: Order Comment: What Is Urine Source? [place] What Is Urine Source? [place] Performed By: #### U A, UMIC #### [address] [address] URINE KETONE Negative Normal NEGATIVE [facility] Comment on above: Order Comment: What Is Urine Source? [place] What Is Urine Source? [place] Performed By: #### U A, UMIC #### [address] [address] URINE LEUK ESTERASE Negative Normal NEGATIVE [facility] Comment on above: Order Comment: What Is Urine Source? [place] What Is Urine Source? [place] Performed By: #### U A, UMIC #### [address] [address] URINE NITRITE - DIPSTICK Negative Normal NEGATIVE [facility] Comment on above: Order Comment: What Is Urine Source? [place] What Is Urine Source? [place] Performed By: #### U A, UMIC #### [address] [address] URINE PROTEIN - DIPSTICK Negative Normal NEGATIVE [facility] Comment on above: Order Comment: What Is Urine Source? [place] What Is Urine Source? [place] Performed By: #### U A, UMIC #### [address] [address] URINE SPEC GRAVITY, DIPSTICK 1.020 Normal 1.003-1.035 [facility] Comment on above: Order Comment: What Is Urine Source? [place] What Is Urine Source? [place] Performed By: #### U A, UMIC #### [facility] [address] [place] [address] URINE UROBILINOGEN - DIPSTICK 0.2 E.U./dL Normal <=1.0 [facility] Comment on above: Order Comment: What Is Urine Source? [place] What Is Urine Source? [place] Performed By: #### U A, UMIC #### [facility] [address] [place] [address] ALLIED HEALTHon 08-25-2023 ALLIED HEALTH HNO ID: [id number] Author: GERSON MAGAÑA RT(R) Service: Radiology Author Type: Technologist Type: Allied Health Filed: 08/25/2023 11:38 Note Text: Radiology Service Progress Note PATIENT NAME: Lisa Mesa DATE OF SERVICE: August 25, 2023 TIME: 11:37 AM PATIENT IDENTITY VERIFICATION COMPLETED USING TWO (2) IDENTIFIERS: Name and Date of confirmed by patient verbally and Name and Date of confirmed by identification band. FALL SCREENING: Has the patient had 2 falls in the last year or 1 fall with injury or currently using an Ambulatory Assistive Device (Walker, Cane, Wheelchair, Crutches, etc.)? Emergency Room Patient: Screened in ED PATIENT GENDER DATA: Female. status: : No status: NO. PATIENT RELEVANT IMPLANT DATA REVIEWED: Not Applicable PATIENT PRESENTS WITH AN IMPLANTABLE OR ATTACHED CLINICAL PROFESSOR: No RADIOLOGY DEPARTMENT: General X-ray: Exam(s) Completed: Chest X-Ray PERIPHERAL IV DATA: Not applicable SIGNED BY: RT Benton(R) August 25, 2023 11:37 AM Normal [facility] Basic metabolic 2000 panelon 08-25-2023 Anion gap [Moles/Vol] mmol/L Low 5-16 [facility] Comment on above: Order Comment: Speci men Type: BLOOD SPECIMEN Ordering Facility: [facility] Address: [address] [place] [address] Performed By: #### 2 4321-2, 77890-0, HCG #### [facility] CLIA [id number] [facility] [place] [address] [place] Calcium [Mass/Vol] 9.0 mg/dL Normal 8.5-10.5 [facility] Comment on above: Order Comment: Speci men Type: BLOOD SPECIMEN Ordering Facility: [facility] Address: [address] [place], [place] [address] Performed By: #### 2 4321-2, , HCG #### [facility] CLIA [id number] [address] [place] [address] [place] Chloride [Moles/Vol] 109 mmol/L High 98-107 [facility] Comment on above: Order Comment: Speci men Type: BLOOD SPECIMEN Ordering Facility: [facility] Address: [address] [place] [address] Performed By: #### 2 432-2, , HCG #### [facility] CLIA [id number] [address] [place] [address] [place] CO2 [Moles/Vol] 27 mmol/L Normal 21-32 [facility] Comment on above: Order Comment: Speci men Type: BLOOD SPECIMEN Ordering Facility: [facility] Address: [address] [place] [address] Performed By: #### 2 432-2, , HCG #### [facility] CLIA [id number] [address] [place] [address] [place] Creatinine [Mass/Vol] 0.69 mg/dL Normal 0.51-0.95 [facility] Comment on above: Order Comment: Speci men Type: BLOOD SPECIMEN Ordering Facility: [facility] Address: [address] [place] [address] Result Comment: Kelsey ents receiving either N-Acetylcysteine (NAC) or Metamizole prior to venipuncture, may have falsely depressed results. Performed By: #### 2 4321-2, , HCG #### [facility] CLIA [id number] [address] [place] [address] [place] Creatinine and Glomerular filtration rate.predicted panel (S/P/Bld) 121 mL/min/1.73m??? Normal >=60 [facility] Comment on above: Order Comment: Jessica rojo Type: BLOOD SPECIMEN Ordering Facility: [facility] Address: [address] [place] [address] Result Comment: Sarah mated Glomerular Filtration Rate (eGFR) is calculated using the 2020 CKD-EPI creatinine equation. This equation utilizes serum creatinine, sex, and age as parameters. The creatinine assay has traceable calibration to isotope dilution-mass spectrometry. Refer to KDIGO guidelines for clinical interpretation. In patients with unstable renal function, e.g. those with acute kidney injury, the eGFR may not accurately reflect actual GFR. Performed By: #### 2 4321-2, , HCG #### [facility] CLIA [id number] [address] [place], [place] [address] [place] Glucose [Mass/Vol] 153 mg/dL High 70-100 [facility] Comment on above: Order Comment: Jessica rojo Type: BLOOD SPECIMEN Ordering Facility: [facility] Address: [address] [place] [address] Result Comment: The [place] [employer] (ADA) provides guidance for cutoff values for fasting glucose and random glucose. The ADA defines fasting as no caloric intake for at least 8 hours. Fasting plasma glucose results between 100 to 125 mg/dL indicate increased risk for diabetes (prediabetes). Fasting plasma glucose results greater than or equal to 126 mg/dL meet the criteria for diagnosis of diabetes. In the absence of unequivocal hyperglycemia, results should be confirmed by repeat testing. In a patient with classic symptoms of hyperglycemia or hyperglycemic crisis, random plasma glucose results greater than or equal to 200 mg/dL meet the criteria for diagnosis of diabetes. Reference: Standards of Medical Care in Diabetes 2016, [place] [employer]. Diabetes Care. 2016.39(Suppl 1). Results may be falsely elevated after the administration of Sulfapyridine. Results may be falsely depressed after the administration of Sulfasalazine. Performed By: #### 2 4321-2, , HCG #### [facility] CLIA [id number] [address] [place] [address] [place] Potassium [Moles/Vol] 3.6 mmol/L Normal 3.5-5.1 [facility] Comment on above: Order Comment: Speci men Type: BLOOD SPECIMEN Ordering Facility: [facility] Address: [address] [place] [address] Performed By: #### 2 4321-2, , HCG #### [facility] CLIA [id number] [address] [place], [place] [address] [place] Sodium [Moles/Vol] 138 mmol/L Normal 136-145 [facility] Comment on above: Order Comment: Speci men Type: BLOOD SPECIMEN Ordering Facility: [facility] Address: [address] [place] [address] Performed By: #### 2 4321-2, , HCG #### [facility] CLIA [id number] [address] [place] [address] [place] Urea nitrogen [Mass/Vol] 8 mg/dL Normal 7-26 [facility] Comment on above: Order Comment: Speci men Type: BLOOD SPECIMEN Ordering Facility: [facility] Address: [address] [place] [address] Performed By: #### 2 432-2, , HCG #### [facility] CLIA [id number] [address] [place] [address] [place] CBC W Auto Differential pane l (Bld)on 08-25-2023 Basophils (Bld) [#/Vol] 10*3/uL Normal <0.11 [facility] Comment on above: Order Comment: Speci men Type: BLOOD SPECIMEN Ordering Facility: [facility] Address: [address] [place] [address] Performed By: #### 5 7021-8 #### [facility] CLIA [id number] [address] [place] [address] [place] Basophils/100 WBC (Bld) 0.4 % Normal [facility] Comment on above: Order Comment: Speci men Type: BLOOD SPECIMEN Ordering Facility: [facility] Address: [address] [place] [address] Performed By: #### 5 7021-8 #### [facility] CLIA [id number] [address] [place] [address] [place] Differential cell count method Nom (Bld) Auto Normal [facility] Comment on above: Order Comment: Speci men Type: BLOOD SPECIMEN Ordering Facility: [facility] Address: [address] [place] [address] Performed By: #### 5 7021-8 #### [facility] CLIA [id number] [address] [place] [address] [place] Eosinophils (Bld) [#/Vol] 0.23 10*3/uL Normal <0.46 [facility] Comment on above: Order Comment: Speci men Type: BLOOD SPECIMEN Ordering Facility: [facility] Address: [address] [place] [address] Performed By: #### 5 7021-8 #### [facility] CLIA [id number] [address] [place] [address] [facility] Eosinophils/100 WBC (Bld) 4.9 % Normal [facility] Comment on above: Order Comment: Speci men Type: BLOOD SPECIMEN Ordering Facility: [facility] Address: [address] [place] [address] Performed By: #### 5 7021-8 #### [facility] CLIA [id number] [address] [place] [address] [place] Erythrocyte distribution width (RBC) [Ratio] 15.8 % High 11.5-15.0 [facility] Comment on above: Order Comment: Speci men Type: BLOOD SPECIMEN Ordering Facility: [facility] Address: [address] [place] [address] Performed By: #### 5 7021-8 #### [facility] CLIA [id number] [address] [place] [address] [place] Hematocrit (Bld) [Volume fraction] 32.3 % Low 36.0-46.0 [facility] Comment on above: Order Comment: Speci men Type: BLOOD SPECIMEN Ordering Facility: [facility] Address: [address] [place] [address] Performed By: #### 5 7021-8 #### [facility] CLIA [id number] [address] [place] [address] [place] Hemoglobin (Bld) [Mass/Vol] 10.2 g/dL Low 11.5-15.5 [facility] Comment on above: Order Comment: Speci men Type: BLOOD SPECIMEN Ordering Facility: [facility] Address: [address] [place] [address] Performed By: #### 5 7021-8 #### [facility] CLIA [id number] [address] [place] [address] [place] Immature granulocytes (Bld) [#/Vol] 10*3/uL Normal <0.10 [facility] Comment on above: Order Comment: Speci men Type: BLOOD SPECIMEN Ordering Facility: [facility] Address: [address] [place] [address] Performed By: #### 5 7021-8 #### [facility] CLIA [id number] [address] [place] [address] [place] Immature granulocytes/100 WBC (Bld) 0.2 % Normal [facility] Comment on above: Order Comment: Speci men Type: BLOOD SPECIMEN Ordering Facility: [facility] Address: [address] [place] [address] Performed By: #### 5 7021-8 #### [facility] CLIA [id number] [address] [place] [address] [place] Lymphocytes (Bld) [#/Vol] 2.17 10*3/uL Normal 1.00-4.00 [facility] Comment on above: Order Comment: Speci men Type: BLOOD SPECIMEN Ordering Facility: [facility] Address: [address] [place] [address] Performed By: #### 5 7021-8 #### [facility] CLIA [id number] [address] [place], [place] [address] [place] Lymphocytes/100 WBC (Bld) 46.0 % Normal [facility] Comment on above: Order Comment: Speci men Type: BLOOD SPECIMEN Ordering Facility: [facility] Address: [address] [place] [address] Performed By: #### 5 7021-8 #### [facility] CLIA [id number] [address] [place] [address] MCH (RBC) [Entitic mass] 25.4 pg Low 26.0-34.0 [facility] Comment on above: Order Comment: Speci men Type: BLOOD SPECIMEN Ordering Facility: [facility] Address: [address] [place] [address] Performed By: #### 5 7021-8 #### [facility] CLIA [id number] [address] [place] [address] MCHC (RBC) [Mass/Vol] 31.6 g/dL Normal 30.5-36.0 [facility] Comment on above: Order Comment: Speci men Type: BLOOD SPECIMEN Ordering Facility: [facility] Address: [address] [place] [address] Performed By: #### 5 7021-8 #### [facility] CLIA [id number] [address] [place] [address] MCV (RBC) [Entitic vol] 80.5 fL Normal 80.0-100.0 [facility] Comment on above: Order Comment: Speci men Type: BLOOD SPECIMEN Ordering Facility: [facility] Address: [address] [place] [address] Performed By: #### 5 7021-8 #### [facility] CLIA [id number] [address] [place] [address] Monocytes (Bld) [#/Vol] 0.35 10*3/uL Normal <0.87 [facility] Comment on above: Order Comment: Speci men Type: BLOOD SPECIMEN Ordering Facility: [facility] Address: [address] [place] [address] Performed By: #### 5 7021-8 #### [facility] CLIA [id number] [address] [place] [address] [place] Monocytes/100 WBC (Bld) 7.4 % Normal [facility] Comment on above: Order Comment: Speci men Type: BLOOD SPECIMEN Ordering Facility: [facility] Address: [address] [place] [address] Performed By: #### 5 7021-8 #### [facility] CLIA [id number] [address] [place] [address] [place] Neutrophils (Bld) [#/Vol] 1.94 10*3/uL Normal 1.45-7.50 [facility] Comment on above: Order Comment: Speci men Type: BLOOD SPECIMEN Ordering Facility: [facility] Address: [address] [place] [address] Performed By: #### 5 7021-8 #### [facility] CLIA [id number] [address] [place] [address] [place] Neutrophils/100 WBC (Bld) 41.1 % Normal [facility] Comment on above: Order Comment: Speci men Type: BLOOD SPECIMEN Ordering Facility: [facility] Address: [address] [place] [address] Performed By: #### 5 7021-8 #### [facility] CLIA [id number] [address] [place] [address] [place] Nucleated RBC (Bld) [#/Vol] 10*3/uL Normal <0.01 [facility] Comment on above: Order Comment: Speci men Type: BLOOD SPECIMEN Ordering Facility: [facility] Address: [address] [place] [address] Performed By: #### 5 7021-8 #### [facility] CLIA [id number] [address] [place] [address] [place] Nucleated RBC/100 WBC (Bld) [Ratio] 0.0 /100 WBC Normal [facility] Comment on above: Order Comment: Speci men Type: BLOOD SPECIMEN Ordering Facility: [facility] Address: [address] [place] [address] Performed By: #### 5 7021-8 #### [facility] CLIA [id number] [address] [place] [address] [place] Platelet mean volume (Bld) [Entitic vol] 10.9 fL Normal 9.0-12.7 [facility] Comment on above: Order Comment: Speci men Type: BLOOD SPECIMEN Ordering Facility: [facility] Address: [address] [place] [address] Performed By: #### 5 7021-8 #### [facility] CLIA [id number] [address] [place] [address] [place] Platelets (Bld) [#/Vol] 157 10*3/uL Normal 150-400 [facility] Comment on above: Order Comment: Speci men Type: BLOOD SPECIMEN Ordering Facility: [facility] Address: [address] [place] [address] Performed By: #### 5 7021-8 #### [facility] CLIA [id number] [address] [place] [address] [place] RBC (Bld) [#/Vol] 4.01 10*6/uL Normal 3.90-5.20 [facility] Comment on above: Order Comment: Speci men Type: BLOOD SPECIMEN Ordering Facility: [facility] Address: [address] [place] [address] Performed By: #### 5 7021-8 #### [facility] CLIA [id number] [address] [place] [address] [place] WBC (Bld) [#/Vol] 4.72 10*3/uL Normal 3.70-11.00 [facility] Comment on above: Order Comment: Speci men Type: BLOOD SPECIMEN Ordering Facility: [facility] Address: [address] [place] [address] Performed By: #### 5 7021-8 #### [facility] CLIA [id number] [address] [place], [place] [address] [facility] [place] ECG COMPLETEon 08-25-2023 ECG COMPLETE Ventricular Rate : 9 0 BPM Atrial Rate : 90 BPM P-R Interval : 176 ms QRS Duration : 82 ms Q-T Interval : 364 ms QTC Calculation(Bazett) : 445 ms Calculated P [place] : 40 degrees Calculated R [place] : 56 degrees Calculated T [place] : 24 degrees Normal sinus rhythm Normal ECG When compared with ECG of 07-APR-2023 18:, No significant change was found Confirmed by CECIL LANDEROS MD ([id number]) on 08/25/2023 12:58:04 PM NAME : LISA MESA PID : [id number] : 1995 Gender : Female Race : Other ORD : [id number] Procedure Date : Aug 25 2023 10:32:52 Edit Date : Aug 25 2023 12:58:10 Diagnosis: Normal sinus rhythm Normal ECG When compared with ECG of 07-APR-2023 18:, No significant change was found Confirmed by CECIL LANDEROS MD ([id number]) on 08/25/2023 12:58:04 PM Test Reason : STAT Location : 0 : ED A Overread By : CECIL LANDEROS MD Edited By : CECIL LANDEROS MD Referred By : , Acquired by : [facility] ED PROV NOTEon 08-25-2023 ED PROV NOTE HNO ID: [id number] Author: NORMA DEJESUS APRN.ENVIRONMENTAL HEALTH AND SAFETY LEADER Service: ? Author Type: Nurse Practitioner Type: ED Provider Notes Filed: 08/25/2023 15:15 Note Text: ED Provider Note Patient Name: Lisa Mesa : 1995 SERVICE DATE: 08/25/23 History Patient presents with: Chest Pain: Pt c/o LT sided chest pain that started at 8AM today. States it's non-radiating, and denies any other symptoms. Denies any cardiac hx. Pt reports being sick with flu like symptoms since last Sunday. 28-year-old female presents emergency room with left-sided chest pain. Patient states she has been sick since Sunday with cough, congestion, drainage. Pain has been to the left side since she woke up this morning. Patient states that is been intermittent. Patient has no cardiac history or family history of cardiac disease. Patient states her mom did have cancer which caused her to have a blood clot. Patient's child recently tested positive for influenza. Patient does not take hormone therapy, no previous blood clots, no recent surgery procedures, no long car trips or travel. Patient has no history of clotting disorder. PAST MEDICAL HISTORY Diagnosis Date - Anemia previous - Headaches - History of sexually transmitted disease PAST SURGICAL HISTORY Procedure Laterality Date - NONE - NONE FAMILY HISTORY Problem Relation Age of Onset - Diabetes Mother - Cancer Mother Throat - Leukemia Mother - No Known Problems Father - Diabetes Sister - other (Epilepsy) Sister Social History Tobacco Use - Smoking status: Former Types: Cigarettes - Smokeless tobacco: Never Vaping Use - Vaping Use: Never used Substance and Sexual Activity - Alcohol use: Yes Comment: socially - Drug use: Never - Sexual activity: Yes Partners: Male ALLERGIES Allergen Reactions - Hydrocodone-Acetami* Hives Review of Systems Constitutional: Positive for activity change. HENT: Positive for congestion. Respiratory: Positive for cough. Cardiovascular: Positive for chest pain. Gastrointestinal: Positive for nausea. Neurological: Positive for headaches. Physical Exam Vitals [08/25/23 1032] BP Pulse Temp Temp src Resp SpO2 Weight Height 140/87 (!) 91 36.6 ?C (97.8 ?F) Oral 18 98 % 102.1 kg (225 lb) 1.778 m (5' 10) Physical Exam Vitals and nursing note reviewed. Constitutional: Appearance: She is well-developed. HENT: Head: Normocephalic. Eyes: Extraocular Movements: Extraocular movements intact. Pupils: Pupils are equal, round, and reactive to light. Neck: Vascular: No JVD. Cardiovascular: Rate and Rhythm: Normal rate and regular rhythm. Heart sounds: Normal heart sounds. No murmur heard. Pulmonary: Effort: Pulmonary effort is normal. Breath sounds: Normal breath sounds. Chest: Chest wall: Tenderness present. Abdominal: General: Bowel sounds are normal. Musculoskeletal: General: Normal range of motion. Cervical back: Normal range of motion and neck supple. Right lower leg: No edema. Left lower leg: No edema. Lymphadenopathy: Cervical: No cervical adenopathy. Skin: General: Skin is warm and dry. Capillary Refill: Capillary refill takes less than 2 seconds. Findings: No rash. Neurological: General: No focal deficit present. Mental Status: She is alert and oriented to person, place, and time. Psychiatric: Mood and Affect: Mood normal. Behavior: Behavior normal. Diagnostic Testing ED Labs Ordered and Reviewed BASIC METABOLIC PNL - Abnormal; Notable for the following components: Result Value Ref Range Glucose 153 (*) 70 - 100 mg/dL Chloride 109 (*) 98 - 107 mmol/L Anion Gap <3 (*) 5 - 16 mmol/L All other components within normal limits CBC + DIFF - Abnormal; Notable for the following components: Hemoglobin 10.2 (*) 11.5 - 15.5 g/dL Hematocrit 32.3 (*) 36.0 - 46.0 % MCH 25.4 (*) 26.0 - 34.0 pg RDW-CV 15.8 (*) 11.5 - 15.0 % All other components within normal limits HCG QUAL BLD - Abnormal; Notable for the following components: HCG, Qualitative Blood Positive (*) Negative All other components within normal limits COVID AND INFLUENZA A/B AND RSV NAAT, EXPEDITED - Abnormal; Notable for the following components: Influenza B PCR Detected (*) Not Detected All other components within normal limits Narrative: This test has been authorized by FDA under an Emergency Use Authorization (EUA). MAGNESIUM BLD - Normal HIGH SENSITIVITY TROPONIN I - Normal HIGH SENSITIVITY TROPONIN I Procedures ED Course / Clinical Impression ED Course as of 08/25/23 1547 Norma Dejesus's Documentation Sat Aug 25, 2023 1513 BASIC METABOLIC PANEL(!): Glucose 153(!) BUN 8 Creatinine 0.69 Sodium 138 Potassium 3.6 Chloride 109(!) CO2 27 Anion Gap <3(!) Calcium 9.0 eGFR 121 1513 CBC + AUTO DIFF(!): WBC 4.72 RBC 4.01 Hemoglobin 10.2(!) Hematocrit 32.3(!) MCV 80.5 MCH 25.4(!) MCHC 31.6 RDW-CV 15.8(!) (more content not included)... Normal [facility] ED Triage Noteon 08-25-2023 ED Triage Note HNO ID: [id number] Author: NORMA DEJESUS APRN.ENVIRONMENTAL HEALTH AND SAFETY LEADER Service: ? Author Type: Nurse Practitioner Type: ED Triage Notes Filed: 08/25/2023 11:23 Note Text: ED INTAKE NOTE Patient Name: Lisa Mesa Service Date: 08/25/23 BRIEF HPI: 28-year-old female presents emergency room with left-sided chest pain. Patient states she has been sick since Sunday with cough, congestion, drainage. Pain has been to the left side since she woke up this morning. Patient states that is been intermittent. Patient has no cardiac history or family history of cardiac disease. Patient states her mom did have cancer which caused her to have a blood clot. Patient's child recently tested positive for influenza. BRIEF EXAM: Awake and Alert RRR CTAB Abd soft/NT/ND; no rebound/guarding INTAKE WORKUP: Bloodwork: CBC BMP Cardiac Enzymes COVID/flu/RSV swab EKG Imaging: XR: Chest x-ray SIGNATURE: Norma Dejesus APRN.ENVIRONMENTAL HEALTH AND SAFETY LEADER Normal [facility] FLUABV+SARS-CoV-2+RSV Pnl Re sp HUNG+probeon 08-25-2023 FLUABV+SARS-CoV-2+RS V Pnl Resp HUNG+probe COVID 19 RESULT: Not detected The method used is RT-PCR or an equivalent NAAT method. Reference Range(the expected result in uninfected individuals): Not detected INFLUENZA A PCR: Not detected INFLUENZA B PCR: Detected RSV PCR: Not detected Abnormal [facility] Comment on above: Performed By: #### 9 5941-1 #### [facility] CLIA [id number] [address] [place] [address] [place] HCG QUAL BLDon 08-25-2023 HCG, QUALITATIVE Positive Abnormal Negative [facility] Comment on above: Order Comment: Jessica rojo Type: BLOOD SPECIMEN Ordering Facility: [facility] Address: [address] [place] [address] Performed By: #### 2 4321-2, 04173-0, HCG #### [facility] CLIA [id number] [address] [place] [address] [place] HIGH SENSITIVITY TROPONIN Io n 08-25-2023 Tropinin I.cardiac panel High sensitivity method <2.5 Normal 0.0-34.0 [facility] Comment on above: Order Comment: Jessica rojo Type: BLOOD SPECIMEN Ordering Facility: [facility] Address: [address] [place] [address] Result Comment: This assay uses different antibodies than our current assay, and assays, even by the same care tech may recognize different regions of the antibody and cannot be used interchangeably. Expect results of this assay to run higher than the previous assay. Performed By: #### H STROP #### [facility] CLIA [id number] [address] [place] [address] [place] Tropinin I.cardiac panel High sensitivity method <2.5 Normal 0.0-34.0 [facility] Comment on above: Order Comment: Specalesia rojo Type: BLOOD SPECIMEN Ordering Facility: [facility] Address: [address] [place] [address] Result Comment: This assay uses different antibodies than our current assay, and assays, even by the same care tech may recognize different regions of the antibody and cannot be used interchangeably. Expect results of this assay to run higher than the previous assay. Performed By: #### H STROP #### [facility] CLIA [id number] [address] [place] [address] [place] Magnesium SerPl-mCncon 08-25 Magnesium [Mass/Vol] 1.8 mg/dL Normal 1.6-2.6 [facility] Comment on above: Order Comment: Speci men Type: BLOOD SPECIMEN Ordering Facility: [facility] Address: [address] [place] [address] Performed By: #### 2 4321-2, 34318-5, HCG #### [facility] CLIA [id number] [address] [place] [address] [place] XR CHEST 2V FRONTAL/LATon XR CHEST 2V FRONTAL/LAT * * *Final Report* * * DATE OF EXAM: Aug 25 2023 11:31AM RHX [id number] - XR CHEST 2V FRONTAL/LAT / PROCEDURE REASON: Chest Pain * * * * Physician Interpretation * * * * EXAMINATION: CHEST RADIOGRAPH (2 VIEW FRONTAL and LATERAL) CLINICAL HISTORY: Chest Pain MQ: [id number] EXAM DATE/TIME: 08/25/2023 11:31 AM COMPARISON: 04/07/2023 RESULT: Lines, tubes, and devices: None. Lungs and pleura: No consolidation. No lung mass. No pleural effusion. No pneumothorax. Cardiomediastinal silhouette: Normal cardiomediastinal silhouette. Bones and soft tissues: Unremarkable. IMPRESSION: No acute radiographic abnormality. Material Mover: RADHA Transcribe Date/Time: Aug 25 2023 11:33A Dictated by : CAMPOS MANZANARES MD This examination was interpreted and the report reviewed and electronically signed by: CAMPOS MANZANARES MD on Aug 25 2023 11:34AM EST [id number] Normal [facility] ACETONEon 08-11-2023 ACETONE Negative Normal [facility] Comment on above: Performed By: #### M N, GEOVANNY, ACTN #### [address] [address] CBC with AUTO DIFFon 024 BAS0 % 0.90 % Normal 0-2 [facility] Comment on above: Performed By: #### C BC #### [facility] [address] [place] [address] Basophils (Bld) [#/Vol] 0.1 10*3/uL Normal 0-0.1 [facility] Comment on above: Performed By: #### C BC #### [address] [address] Eosinophils (Bld) [#/Vol] 0.2 10*3/uL Normal 0.0-1.80 [facility] Comment on above: Performed By: #### C BC #### [address] [address] Eosinophils/100 WBC (Bld) 3.2 % Normal 0-8 [facility] Comment on above: Performed By: #### C BC #### [address] [address] GRAN # 3.8 K/uL Normal 2.2-9.1 [facility] Comment on above: Performed By: #### C BC #### [address] [address] GRAN % 51.1 % Normal 42-80 [facility] Comment on above: Performed By: #### C BC #### [address] [address] Hematocrit (Bld) [Volume fraction] 31.4 % Low 37.0-47.0 [facility] Comment on above: Performed By: #### C BC #### [facility] [address] [place] [address] Hemoglobin (Bld) [Mass/Vol] 10.1 g/dL Low 12.0-16.0 [facility] Comment on above: Performed By: #### C BC #### [facility] [address] [place] [address] Lymphocytes (Bld) [#/Vol] 2.9 10*3/uL Normal 1.0-4.0 [facility] Comment on above: Performed By: #### C BC #### [facility] [address] [place] [address] Lymphocytes/100 WBC (Bld) 38.9 % Normal 16-48 [facility] Comment on above: Performed By: #### C BC #### [facility] [address] [place] [address] MCV (RBC) [Entitic vol] 80.0 fL Normal 80-97 [facility] Comment on above: Performed By: #### C BC #### [address] [place] [address] MEAN CORPUSCULAR HGB 25.8 pg Low 26.0-32.0 [facility] Comment on above: Performed By: #### C BC #### [address] [place] [address] MEAN CORPUSCULAR HGB CONC 32.3 g/dL Normal 31.0-36.0 [facility] Comment on above: Performed By: #### C BC #### [address] [place] [address] MONO DISTRIB WIDTH 15.35 Normal 0-20 [facility] Comment on above: Result Comment: For ED adult patients suspected of sepsis, MDW<=20.0 does not rule out sepsis or risk of sepsis Performed By: #### C BC #### [facility] [address] [place] [address] Monocytes (Bld) [#/Vol] 0.4 10*3/uL Normal 0.1-1.7 [facility] Comment on above: Performed By: #### C BC #### [facility] [address] [place] [address] Monocytes/100 WBC (Bld) 5.9 % Normal 3-9 [facility] Comment on above: Performed By: #### C BC #### [facility] [address] [place] [address] Platelet mean volume (Bld) [Entitic vol] 8.7 fL Normal 6.6-10.5 [facility] Comment on above: Performed By: #### C BC #### [facility] [address] [place] [address] Platelets (Bld) [#/Vol] 185 10*3/uL Normal 140-450 [facility] Comment on above: Performed By: #### C BC #### [facility] [address] [place] [address] RBC (Bld) [#/Vol] 3.93 10*6/uL Low 4.20-5.50 [facility] Comment on above: Performed By: #### C BC #### [facility] [address] [place] [address] RED CELL DISTRI WIDTH 17.5 % High 11.0-15.5 [facility] Comment on above: Performed By: #### C BC #### [address] [place] [address] WBC (Bld) [#/Vol] 7.4 10*3/uL Normal 4.0-11.0 [facility] Comment on above: Performed By: #### C BC #### [facility] [address] [place] [address] COMPREHENSIVE METABOLIC PANE Sarath 08-11-2023 Albumin [Mass/Vol] 3.6 g/dL Normal 3.4-5.0 [facility] Comment on above: Performed By: #### M GEOVANNY Gaytan ACTN #### [facility] [address] [place] [address] Albumin/Globulin [Mass ratio] 0.9 {ratio} Low 1.1-1.8 [facility] Comment on above: Performed By: #### M GEOVANNY Gaytan ACTN #### [facility] [address] [place] [address] ALP [Catalytic activity/Vol] 73 U/L Normal 45-117 [facility] Comment on above: Performed By: #### M GEOVANNY Gaytan ACTN #### [facility] [address] [place] [address] ALT [Catalytic activity/Vol] 17 U/L Normal 12-78 [facility] Comment on above: Performed By: #### M GEOVANNY Gaytan ACTN #### [facility] [address] [place] [address] Anion gap [Moles/Vol] 9.2 mmol/L Low 11-23 [facility] Comment on above: Performed By: #### M GEOVANNY Gaytan, ACTN #### [facility] [address] [place] [address] AST [Catalytic activity/Vol] 9 U/L Low 15-37 [facility] Comment on above: Performed By: #### M Lukas TRO, ACTN #### [facility] [address] [place] [address] Bilirubin [Mass/Vol] 0.3 mg/dL Normal 0.2-1.0 [facility] Comment on above: Performed By: #### M GEOVANNY Gaytan, ACTN #### [facility] [address] [place] [address] Calcium [Mass/Vol] 8.4 mg/dL Low 8.5-10.1 [facility] Comment on above: Performed By: #### M Lukas TRO, ACTN #### [address] [place] [address] Chloride [Moles/Vol] 108 mmol/L High 98-107 [facility] Comment on above: Performed By: #### M Lukas TRO, ACTN #### [address] [place] [address] CO2 [Moles/Vol] 23.0 mmol/L Normal 21-32 [facility] Comment on above: Performed By: #### M Lukas TRO, ACTN #### [address] [place] [address] Creatinine [Mass/Vol] 0.70 mg/dL Normal 0.55-1.02 [facility] Comment on above: Performed By: #### M Lukas TRO, ACTN #### [address] [place] [address] GFR > 60.0 [facility] Comment on above: Performed By: #### M Lukas TRO, ACTN #### [address] [place] [address] GFR AM > 60.0 [facility] Comment on above: Result Comment: THE NORMAL LEVEL OF GFR VARIES ACCORDING TO AGE, SEX, AND BODY SIZE. A GFR LEVEL OF LESS THAN 60 ML/MIN REPRESENTS LOSS OF THE ADULT LEVEL OF NORMAL KIDNEY FUNCTION. Performed By: #### M Lukas TRO, ACTN #### [facility] [address] [place] [address] Globulin (S) [Mass/Vol] 3.8 g/dL Normal 2.5-4.6 [facility] Comment on above: Performed By: #### GEOVANNY Soto, ACTN #### [facility] [address] [place] [address] Glucose [Mass/Vol] 120 mg/dL High 70-100 [facility] Comment on above: Performed By: #### GEOVANNY Soto ACTN #### [facility] [address] [place] [address] Potassium [Moles/Vol] 3.8 mmol/L Normal 3.5-5.1 [facility] Comment on above: Performed By: #### GEOVANNY Soto ACTN #### [facility] [address] [place] [address] Protein [Mass/Vol] 7.3 g/dL Normal 6.0-8.3 [facility] Comment on above: Performed By: #### GEOVANNY Soto ACTN #### [facility] [address] [place] [address] Sodium [Moles/Vol] 136 mmol/L Normal 136-145 [facility] Comment on above: Performed By: #### GEOVANNY Soto ACTN #### [facility] [address] [place] [address] Urea nitrogen [Mass/Vol] 7.0 mg/dL Normal 7-18 [facility] Comment on above: Performed By: #### GEOVANNY Soto ACTN #### [address] [address] ED.PDOCon 08-11-2023 ED.PDOC LISA MESA Female [id number] Attending provider: [facility] [id number] Vern Henry 1995 28 DOS: 08/11/23 Hx/Exam - History of Present Illness Chief Complaint: NAUSEA Location: body Symptom Duration: noted this morning, but intermittent past 2 weeks Symptom Duration: Day(s) Onset of Symptoms: gardual Intensity: mild Quality: lightheaded Episode Frequency: intermittant Episode Duration: Few minutes Radiations: body Patient/Family Denies: headache, neck pain, vomiting, CP, SOB, abd pain, F/C/R - Review of Systems All Other Systems: Pertinent Positives in HPI, All Other Systems Negative Constitutional: Denies: Fever, Chills, Sweats Eyes: Denies: Pain, Blurred Vision Respiratory: Denies: Cough, Dry, Shortness of Breath Cardiovascular: Denies: Chest Pain, Palpitations, Orthopnea Gastrointestinal: Denies: Nausea, Vomiting, Abdominal Pain, Diarrhea Reproductive: Denies Presumptive Musculoskeletal: Denies: Neck Pain, Back Pain, Body Aches Skin: Denies: Rash Neurological: Denies: Headache, Weakness, Numbness, Incoordination - Past Medical History ED PMH: Yes Anemia, Yes Anxiety, Yes Diabetes (pre-diabetic), Yes HTN (gestational/pre-e) - Social History Smoking Status: Current every day smoker Hx Alcohol Use: Yes (Occasional) Hx Drug Use: None Living Conditions: Family - Family History Family/Social History Related to Chief Complaint: Denies - Physical Exam General Appearance: awake, alert Eyes: PERRL Head, Ears, Nose, and Throat: TMs normal, pharynx normal, mucous membranes moist, atraumatic, mastoid non-tender, other (Midline uvula, no exudates; symmetric nonswollen tonsils bilaterally; no pain or swelling noted under tongue. No pain over anterior throat. ) Neck: supple, non-tender, no stridor, no bony tenderness, full ROM, no meningeal signs, no cervical lymphadenopathy Respiratory: lungs clear, no wheezes/rhonchi/rales, no respiratory distress Cardiovascular: regular rate, rhythm, no murmur, no gallop Abdomen/GI: non tender, soft, non-distended, normal bowel sounds, no organomegaly, no pulsatile mass, no peritoneal signs Back: no CVA tenderness, no vertebral tenderness, normal ROM, non tender Extremity: normal range of motion, non-tender, normal inspection, no pedal edema, no calf tenderness Pulses: Radial: 2+, Posterior Tibial: 2+, Dorsalis Pedis: 2+ Neurologic: no motor/sensory deficits, normal gait, normal strength, normal sensation, speech clear/fluent Psychiatric: oriented x3, calm Skin Exam: warm/dry Lymphatic: no adenopathy - Source of History Source of History: Nursing Notes/Vital Signs/Triage Reviewed and Agree Note(s) - Physician Notes Additional Notes, See Orders for Details: 08/11/23 11:29 28-year-old female presents from home noting intermittent symptoms of lightheadedness over the past several days. Patient notes some fatigue symptoms as well. She notes that her children have been ill with upper respiratory infection at home. Patient denies any falls or trauma. Denies neck pain; no signs of meningismus. Denies any chest pain or shortness of breath. Patient reports that during her last she had gestational diabetes. She states she went to get her blood glucose checked as she has had some overlapping symptoms from when she had her gestational diabetes recently, which pt notes it is chief concern today. Acetone negative. Glucose 120. Bicarb 23. UA shows some WBC's and LE. Mini resp panel NEGATIVE. I had a discussion with the patient regarding her test results. Patient has been out of bed up and ambulatory with steady gait. Patient is requesting a work note for tomorrow. Discussed with patient, comfortable with plan, close follow up and return precautions. This note is completed with assistance of the [employer] dictation program. While every attempt has been made to dictate accurately, the system does make errors in transcribing the precise spoken word intended. EKG - EKG EKG Interpretation: Preliminary ED Interpretation (Sinus rhythm rate 81; prior for comparison from 05/12/2023; no acute ST or T wave abnormalities noted; Qtc 434) Discharge Screen - Discharge Discharge Problem: Nausea, Fatigue Disposition: HOME/SELF CARE Additional Instructions: Please keep well hydrated and take your medication as prescribed and follow up closely with your primary care doctor. If the symptoms worsen or new symptoms develop return to the Emergency Department (ED) immediately. Call your doctor for additional questions. ED . Condition: Good Forms: Out of Work Slip Prescriptions: Cephalexin [Keflex] 500 mg PO BID #10 cap Transmission Status: Pending to [facility] #[id number] Referrals: Alex Avila [ACTIVE] - 2-3 Days Dictated By: Vern Henry MD Dictated Date/Time:08/11/23 1120 Electronically Signed Date/Time: 08/11/23 (more content not included)... Normal [facility] HCG URINEon 08-11-2023 Beta HCG ( test) Ql (U) Negative Normal [facility] Comment on above: Order Comment: What Is Urine Source? Clean Catch [place] Performed By: #### D SANA #### [address] [address] Laboratory studies (set)on 0 08-11-2023 Acetone Level [facility] Albumin [Mass/Vol] 3.6 g/dL 3.4-5.0 [facility] Albumin/Globulin [Mass ratio] 0.9 {ratio} Low 1.1-1.8 [facility] ALP [Catalytic activity/Vol] 73 U/L 45-117 [facility] ALT [Catalytic activity/Vol] 17 U/L 12-78 [facility] Anion gap [Moles/Vol] 9.2 mmol/L Low 11-23 [facility] Appearance (U) CLEAR [facility] AST [Catalytic activity/Vol] 9 U/L Low 15-37 [facility] Basophils (Bld) [#/Vol] 0.1 10*3/uL 0-0.1 [facility] Basophils/100 WBC (Bld) 0.90 % 0-2 [facility] Bilirubin [Mass/Vol] 0.3 mg/dL 0.2-1.0 [facility] Ql (U) NEGATIVE [facility] Calcium [Mass/Vol] 8.4 mg/dL Low 8.5-10.1 [facility] Chloride [Moles/Vol] 108 mmol/L High 98-107 [facility] CO2 [Moles/Vol] 23.0 mmol/L 21-32 [facility] Color (U) [facility] Creatinine [Mass/Vol] 0.70 mg/dL 0.55-1.02 [facility] Eosinophils (Bld) [#/Vol] 0.2 10*3/uL 0.0-1.80 [facility] Eosinophils/100 WBC (Bld) 3.2 % 0-8 [facility] Erythrocyte distribution width (RBC) [Ratio] 17.5 % High 11.0-15.5 [facility] Estimated GFR () [facility] Comment on above: THE NORMAL LEVEL OF GFR VARIES ACCORDING TO AGE, SEX, AND BODY SIZE. A GFR LEVEL OF LESS THAN 60 ML/MIN REPRESENTS LOSS OF THE ADULT LEVEL OF NORMAL KIDNEY FUNCTION. GFR/1.73 sq M.predicted among non-blacks MDRD (S/P/Bld) [Vol rate/Area] [facility] Globulin (S) [Mass/Vol] 3.8 g/dL 2.5-4.6 [facility] Glucose [Mass/Vol] 120 mg/dL High 70-100 [facility] Glucose Ql (U) NEGATIVE [facility] Granulocytes (Bld) [#/Vol] 3.8 10*3/uL 2.2-9.1 [facility] Granulocytes/100 WBC (Bld) 51.1 % 42-80 [facility] HCG Qn (U) [facility] Hematocrit (Bld) [Volume fraction] 31.4 % Low 37.0-47.0 [facility] Hemoglobin (Bld) [Mass/Vol] 10.1 g/dL Low 12.0-16.0 [facility] Ketones Ql (U) NEGATIVE [facility] Leukocyte esterase Test strip Ql (U) High NEGATIVE [facility] Lymphocytes (Bld) [#/Vol] 2.9 10*3/uL 1.0-4.0 [facility] Lymphocytes/100 WBC (Bld) 38.9 % 16-48 [facility] MCH (RBC) [Entitic mass] 25.8 pg Low 26.0-32.0 [facility] MCHC (RBC) [Mass/Vol] 32.3 g/dL 31.0-36.0 [facility] MCV (RBC) [Entitic vol] 80.0 fL 80-97 [facility] Monocyte distribution width Auto (Bld) [Entitic vol] 15.35 0-20 [facility] Comment on above: For ED adult patient s suspected of sepsis, MDW<=20.0 does not rule out sepsis or risk of sepsis Monocytes (Bld) [#/Vol] 0.4 10*3/uL 0.1-1.7 [facility] Monocytes/100 WBC (Bld) 5.9 % 3-9 [facility] Nitrite Ql (U) NEGATIVE [facility] pH (U) 6.0 [pH] 5.0-9.0 [facility] Platelet mean volume (Bld) [Entitic vol] 8.7 fL 6.6-10.5 [facility] Platelets (Bld) [#/Vol] 185 10*3/uL 140-450 [facility] Potassium [Moles/Vol] 3.8 mmol/L 3.5-5.1 [facility] Protein [Mass/Vol] 7.3 g/dL 6.0-8.3 [facility] Protein Ql (U) NEGATIVE [facility] RBC (Bld) [#/Vol] 3.93 10*6/uL Low 4.20-5.50 [facility] RBC (U) [#/Vol] NEGATIVE [facility] RBC LM.HPF (Urine sed) [#/Area] 0-2 [facility] Sodium [Moles/Vol] 136 mmol/L 136-145 [facility] Specific gravity (U) [Rel density] 1.015 1.003-1.035 [facility] Troponin 3.4 pg/mL 0-53.7 [facility] Comment on above: Troponin Reference R flip: Male: 0-78.5 pg/mL (ng/L) Female: 0-53.7 pg/mL (ng/L) Note: The new high sensitivity Troponin units are in pg/mL (ng/L) Urea nitrogen [Mass/Vol] 7.0 mg/dL 7-18 [facility] Urine Bacteria <1+ [facility] Urine Squamous Epithelial Cells NONE-MANY [facility] Urine WBC 0-3 [facility] Urobilinogen Ql (U) 0.2 E.U./dL <=1.0 [facility] WBC (Bld) [#/Vol] 7.4 10*3/uL 4.0-11.0 [facility] TROPONINon 08-11-2023 TROPONIN 3.4 pg/mL Normal 0-53.7 [facility] Comment on above: Result Comment: Trop onin Reference Range: Male: 0-78.5 pg/mL (ng/L) Female: 0-53.7 pg/mL (ng/L) Note: The new high sensitivity Troponin units are in pg/mL (ng/L) Performed By: #### M N, TRO, ACTN #### [address] [place] [address] URINALYSIS W/ C S IF INDICAT EDon 08-11-2023 Appearance (U) Clear Normal CLEAR [facility] Comment on above: Order Comment: What Is Urine Source? Clean Catch Mid StreamWhat Is Urine Source? Clean Catch [place] Performed By: #### D SANA #### [facility] [address] [place] [address] Color (U) Lt. Yellow Normal [facility] Comment on above: Order Comment: What Is Urine Source? Clean Catch Mid StreamWhat Is Urine Source? [place] Performed By: #### D SANA #### [facility] [address] [place] [address] Hemoglobin Ql (U) Negative Normal NEGATIVE [facility] Comment on above: Order Comment: What Is Urine Source? Clean Catch Mid StreamWhat Is Urine Source? [place] Performed By: #### D SANA #### [address] [address] pH (U) 6.0 [pH] Normal 5.0-9.0 [facility] Comment on above: Order Comment: What Is Urine Source? Clean Catch Mid StreamWhat Is Urine Source? [place] Performed By: #### D SANA #### [address] [address] URINE BILIRUBIN - DIPSTICK Negative Normal NEGATIVE [facility] Comment on above: Order Comment: What Is Urine Source? Clean Catch Mid StreamWhat Is Urine Source? [place] Performed By: #### D SANA #### [address] [address] URINE GLUCOSE - DIPSTICK Negative Normal NEGATIVE [facility] Comment on above: Order Comment: What Is Urine Source? Clean Catch Mid StreamWhat Is Urine Source? [place] Performed By: #### D SANA #### [address] [address] URINE KETONE Negative Normal NEGATIVE [facility] Comment on above: Order Comment: What Is Urine Source? Clean Catch Mid StreamWhat Is Urine Source? [place] Performed By: #### D SANA #### [address] [address] URINE LEUK ESTERASE 1+ Abnormal NEGATIVE [facility] Comment on above: Order Comment: What Is Urine Source? Clean Catch Mid StreamWhat Is Urine Source? [place] Performed By: #### D SANA #### [facility] [address] [place] [address] URINE NITRITE - DIPSTICK Negative Normal NEGATIVE [facility] Comment on above: Order Comment: What Is Urine Source? Clean Catch Mid StreamWhat Is Urine Source? Clean [place] Performed By: #### D SANA #### [address] [address] URINE PROTEIN - DIPSTICK Negative Normal NEGATIVE [facility] Comment on above: Order Comment: What Is Urine Source? Clean Catch Mid StreamWhat Is Urine Source? Clean [place] Performed By: #### D SANA #### [address] [address] URINE SPEC GRAVITY, DIPSTICK 1.015 Normal 1.003-1.035 [facility] Comment on above: Order Comment: What Is Urine Source? Clean Catch Mid StreamWhat Is Urine Source? Clean [place] Performed By: #### D SANA #### [address] [address] URINE UROBILINOGEN - DIPSTICK 0.2 E.U./dL Normal <=1.0 [facility] Comment on above: Order Comment: What Is Urine Source? Clean Catch Mid StreamWhat Is Urine Source? Clean Catch [place] Performed By: #### D SANA #### [address] [address] URINE MICROSCOPICon 08-11-19 24 UR SQUAM EPITH MANY Normal NONE-MANY [facility] Comment on above: Performed By: #### D SANA #### [address] [address] URINE BACTERIA FEW Normal <1+ [facility] Comment on above: Performed By: #### D SANA #### [address] [address] URINE RBC 0-2 Normal 0-2 [facility] Comment on above: Performed By: #### D SANA #### [address] [address] URINE WBC 3-5 Normal 0-3 [facility] Comment on above: Performed By: #### D SANA #### [address] [address] ED.PDOCon 05-12-2023 ED.PDOC LISA MESA Female [id number] Attending provider: [facility] [id number] Jeremy Lim 1995 28 DOS: 05/12/23 Hx/Exam - History of Present Illness Chief Complaint: NUMBNESS Additional Comments: 28-year-old female presents with left facial numbness and weakness in the left upper extremity. The patient was just here with her daughter who was seen for leg pain and on her way to drive home she felt slight headache and pressure at the left temporal parietal area. She subsequent developed the numbness and tingling sensation. She has no blurry vision, neck pain or ear pain. She has no focal weakness. She tried to drive home but was afraid secondary to the worsening symptoms. The symptoms are slightly improved now. - Review of Systems All Other Systems: Pertinent Positives in HPI, All Other Systems Negative - Past Medical History ED PMH: Yes Anxiety, Yes Diabetes (pre-diabetic), Yes HTN (gestational/pre-e) - Social History Smoking Status: Never Smoker Hx Alcohol Use: Yes (Occasional) Living Conditions: Family - Physical Exam General Appearance: awake, alert, no apparent distress Eyes: PERRL, EOMI, conjunctivae clear, no scleral icterus Head, Ears, Nose, and Throat: pharynx normal, mucous membranes moist Neck: supple, non-tender, no stridor, no masses, no bony tenderness, full ROM, no cervical lymphadenopathy, other (Negative carotid bruits bilaterally) Respiratory: lungs clear, no wheezes/rhonchi/rales, no respiratory distress, no accessory muscle use Cardiovascular: regular rate, rhythm, no murmur Neurologic: normal gait, normal strength, no pronator drift, speech clear/fluent, 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, no ataxia on FNF, ataxic gait, sensory deficit (Decreased sensation to soft touch on the left face and cheek area compared to the right.) Psychiatric: oriented x3, normal affect, anxious Skin Exam: warm/dry, normal color - Source of History Source of History: Nursing Notes/Vital Signs/Triage Reviewed and Agree Note(s) - Physician Notes Additional Notes, See Orders for Details: 05/12/23 02:13 MEDICAL DECISION MAKING Number and Complexity of Problems Differential Diagnosis but not limited to: Atypical migraine, trigeminal neuralgia, tension headache, TIA, Generalized anxiety disorder MDM Data 05/12/23 02:12 Urine Color Lt. yellow Urine Appearance Sl cloudy H Urine pH 6.0 Ur Specific [place] 1.025 Urine Protein Negative Urine Ketones Negative Urine Blood Negative Urine Nitrite Negative Urine Bilirubin Negative Urine Urobilinogen 0.2 Ur Leukocyte Esterase 3+ H Ur Microscopic Not Reportable Urine RBC None seen Urine WBC 30-40 Ur Squamous Epith Cells Many Urine Bacteria 1+ Urine Mucus Sl amt Urine Glucose Negative Radiologist CT Interpretation: IMPRESSION: Limited exam due to motion artifact, given the limitations, no definite acute abnormality identified. Treatment and Disposition ED Course: 28-year-old female presents with headache and paresthesia. The patient symptom was improving upon ED arrival. She has nonspecific laboratory and diagnostic test results. I do not believe this patient has signs for CVA or TIA based on history and physical exam. The patient will be discharged home to follow-up with PCP for reevaluation if needed. Shared decision making: Patient This note is completed with assistance of the [employer] dictation program. While every attempt has been made to dictate accurately, the system does make errors in transcribing the precise spoken word intended. 05/12/23 03:25 05/14/23 05:38 EKG - EKG EKG Interpretation: Preliminary ED Interpretation (Sinus rhythm, rate 96, TN 196, QRS 84, QT 350, normal axis. Unchanged compared to 02/13/2023.) Discharge Screen - Discharge Discharge Problem: Headache Disposition: HOME/SELF CARE Condition: Stable Instructions: DI for Headache Prescriptions: Ibuprofen 800 mg PO TID PRN 10 Days #30 tab PRN Reason: Transmission Status: Received by [facility] #[id number] Ondansetron [Zofran Odt] 4 mg PO Q6HR PRN 5 Days #20 tab PRN Reason: Transmission Status: Received by [facility] #[id number] Referrals: Call,On [Primary Care Provider] - Celso Mitchell [ACTIVE] - 3-5 Days (as needed) Dictated By: Jeremy Lim MD Dictated Date/Time:05/12/23 021 Electronically Signed Date/Time: 05/14/23 0549 Normal [facility] HEAD W/O CONTRASTon 05-12-20 HEAD W/O CONTRAST LISA MESA Female [id number] Ordering physician: Jeremy Lim LOC:ER [id number] Attending physician: 1995 28 DO S: 05/12/23 Acc#: [id number] Exam/Proc: HEAD W/O CONTRAST Dept: COMPUTED TOMOGRAPHY EXAMINATION: CT OF THE HEAD WITHOUT CONTRAST 05/12/2023 2:53 am TECHNIQUE: CT of the head was performed without the administration of intravenous contrast. Automated exposure control, iterative reconstruction, and/or weight based adjustment of the mA/kV was utilized to reduce the radiation dose to as low as reasonably achievable. COMPARISON: None. HISTORY: ORDERING SYSTEM PROVIDED HISTORY: TECHNOLOGIST PROVIDED HISTORY: Reason for Exam: palpitation FINDINGS: Exam is limited due to motion artifact. BRAIN/VENTRICLES: There is no acute intracranial hemorrhage, mass effect or midline shift. No abnormal extra-axial fluid collection. The medina-white differentiation is maintained without evidence of an acute infarct. There is no evidence of hydrocephalus. ORBITS: The visualized portion of the orbits demonstrate no acute abnormality. SINUSES: The visualized paranasal sinuses and mastoid air cells demonstrate no acute abnormality. SOFT TISSUES/SKULL: No acute abnormality of the visualized skull or soft tissues. IMPRESSION: Limited exam due to motion artifact, given the limitations, no definite acute abnormality identified. Electronically signed By Julio Moura MD 05/12/2023 3:01:30 AM [facility] Workstation ID : [id number] REPORT SIGNATURE ON FILE Electronically Signed Date/Time: 05/12/23300 Dictated Date/time: 05/12/23 0258 CC: Normal [facility] Laboratory studies (set)on Appearance (U) High CLEAR [facility] Bilirubin Ql (U) NEGATIVE [facility] Color (U) [facility] Glucose Ql (U) NEGATIVE [facility] Hemoglobin Ql (U) [facility]IVE [facility] Ketones Ql (U) NEGATIVE [facility] Leukocyte esterase Test strip Ql (U) High NEGATIVE [facility] Mucus Ql (Urine sed) <1+ [facility] Nitrite Ql (U) NEGATIVE [facility] pH (U) 6.0 [pH] 5.0-9.0 [facility] Protein Ql (U) NEGATIVE [facility] RBC LM.HPF (Urine sed) [#/Area] 0-2 [facility] Specific gravity (U) [Rel density] 1.025 1.003-1.035 [facility] Urine Bacteria <1+ [facility] Comment on above: Culture Pending Urine Squamous Epithelial Cells NONE-MANY [facility] Urine WBC 0-3 [facility] Comment on above: Culture Pending Urobilinogen Ql (U) 0.2 E.U./dL <=1.0 [facility] URINALYSIS W/ C S IF INDICAT EDon 05-12-2023 Appearance (U) Sl Cloudy Abnormal CLEAR [facility] Comment on above: Order Comment: What Is Urine Source? RandomWhat Is Urine Source? Random Performed By: #### D SANA #### [address] [address] Other Comment: Cultu re PendingCulture Pending Color (U) Lt. Yellow Normal [facility] Comment on above: Order Comment: What Is Urine Source? RandomWhat Is Urine Source? Random Performed By: #### D SANA #### [address] [address] Other Comment: Cultu re PendingCulture Pending Hemoglobin Ql (U) Negative Normal NEGATIVE [facility] Comment on above: Order Comment: What Is Urine Source? RandomWhat Is Urine Source? Random Performed By: #### D SANA #### [address] [address] Other Comment: Cultu re PendingCulture Pending pH (U) 6.0 [pH] Normal 5.0-9.0 [facility] Comment on above: Order Comment: What Is Urine Source? RandomWhat Is Urine Source? Random Performed By: #### D SANA #### [address] [address] Other Comment: Cultu re PendingCulture Pending URINE BILIRUBIN - DIPSTICK Negative Normal NEGATIVE [facility] Comment on above: Order Comment: What Is Urine Source? RandomWhat Is Urine Source? Random Performed By: #### D SANA #### [address] [address] Other Comment: Cultu re PendingCulture Pending URINE GLUCOSE - DIPSTICK Negative Normal NEGATIVE [facility] Comment on above: Order Comment: What Is Urine Source? RandomWhat Is Urine Source? Random Performed By: #### D SANA #### [address] [address] Other Comment: Cultu re PendingCulture Pending URINE KETONE Negative Normal NEGATIVE [facility] Comment on above: Order Comment: What Is Urine Source? RandomWhat Is Urine Source? Random Performed By: #### D SANA #### [address] [address] Other Comment: Cultu re PendingCulture Pending URINE LEUK ESTERASE 3+ Abnormal NEGATIVE [facility] Comment on above: Order Comment: What Is Urine Source? RandomWhat Is Urine Source? Random Performed By: #### D SANA #### [address] [address] Other Comment: Cultu re PendingCulture Pending URINE NITRITE - DIPSTICK Negative Normal NEGATIVE [facility] Comment on above: Order Comment: What Is Urine Source? RandomWhat Is Urine Source? Random Performed By: #### D SANA #### [address] [address] Other Comment: Cultu re PendingCulture Pending URINE PROTEIN - DIPSTICK Negative Normal NEGATIVE [facility] Comment on above: Order Comment: What Is Urine Source? RandomWhat Is Urine Source? Random Performed By: #### D SANA #### [place] [address] Other Comment: Cultu re PendingCulture Pending URINE SPEC GRAVITY, DIPSTICK 1.025 Normal 1.003-1.035 [facility] Comment on above: Order Comment: What Is Urine Source? RandomWhat Is Urine Source? Random Performed By: #### D SANA #### [place] [address] Other Comment: Cultu re PendingCulture Pending URINE UROBILINOGEN - DIPSTICK 0.2 E.U./dL Normal <=1.0 [facility] Comment on above: Order Comment: What Is Urine Source? RandomWhat Is Urine Source? Random Performed By: #### D SANA #### [place] [address] Other Comment: Cultu re PendingCulture Pending URINE MICROSCOPICon 05-12-20 23 Mucus Ql (Urine sed) SL AMT Normal <1+ [facility] Comment on above: Performed By: #### D SANA #### [place] [address] Other Comment: Cultu re PendingCulture Pending UR SQUAM EPITH MANY Normal NONE-MANY [facility] Comment on above: Performed By: #### D SANA #### [place] [address] Other Comment: Cultu re PendingCulture Pending URINE BACTERIA 1+ Normal <1+ [facility] Comment on above: Performed By: #### D SANA #### [place] [address] Other Comment: Cultu re PendingCulture Pending URINE RBC NONE SEEN Normal 0-2 [facility] Comment on above: Performed By: #### D SANA #### [place] [address] Other Comment: Cultu re PendingCulture Pending URINE WBC 30-40 Normal 0-3 [facility] Comment on above: Performed By: #### D SANA #### [facility] [address] [place] [address] Other Comment: Cultu re PendingCulture Pending BASIC METABOLIC PANELon 07- Anion gap [Moles/Vol] 10.0 mmol/L Low 11-23 [facility] Comment on above: Performed By: #### B MP #### [facility] [address] [place] [address] Calcium [Mass/Vol] 8.5 mg/dL Normal 8.5-10.1 [facility] Comment on above: Performed By: #### B MP #### [facility] [address] [place] [address] Chloride [Moles/Vol] 111 mmol/L High 98-107 [facility] Comment on above: Performed By: #### B MP #### [facility] [address] [place] [address] CO2 [Moles/Vol] 24.0 mmol/L Normal 21-32 [facility] Comment on above: Performed By: #### B MP #### [address] [place] [address] Creatinine [Mass/Vol] 0.70 mg/dL Normal 0.55-1.02 [facility] Comment on above: Performed By: #### B MP #### [facility] [address] [place] [address] GFR > 60.0 [facility] Comment on above: Performed By: #### B MP #### [address] [place] [address] GFR AM > 60.0 [facility] Comment on above: Result Comment: THE NORMAL LEVEL OF GFR VARIES ACCORDING TO AGE, SEX, AND BODY SIZE. A GFR LEVEL OF LESS THAN 60 ML/MIN REPRESENTS LOSS OF THE ADULT LEVEL OF NORMAL KIDNEY FUNCTION. Performed By: #### B MP #### [facility] [address] [place] [address] Glucose [Mass/Vol] 120 mg/dL High 70-100 [facility] Comment on above: Performed By: #### B MP #### [facility] [address] [place] [address] Potassium [Moles/Vol] 3.6 mmol/L Normal 3.5-5.1 [facility] Comment on above: Performed By: #### B MP #### [place] [facility] [address] [place] [address] Sodium [Moles/Vol] 142 mmol/L Normal 136-145 [facility] Comment on above: Performed By: #### B MP #### [facility] [address] [place] [address] Urea nitrogen [Mass/Vol] 10.0 mg/dL Normal 7-18 [facility] Comment on above: Performed By: #### B MP #### [facility] [address] [place] [address] CBC with AUTO DIFFon 18-2 023 BAS0 % 0.40 % Normal 0-2 [facility] Comment on above: Performed By: #### C BC #### [facility] [address] [place] [address] Basophils (Bld) [#/Vol] 0.0 10*3/uL Normal 0-0.1 [facility] Comment on above: Performed By: #### C BC #### [address] [place] [address] Eosinophils (Bld) [#/Vol] 0.2 10*3/uL Normal 0.0-1.80 [facility] Comment on above: Performed By: #### C BC #### [address] [place] [address] Eosinophils/100 WBC (Bld) 2.8 % Normal 0-8 [facility] Comment on above: Performed By: #### C BC #### [address] [place] [address] GRAN # 3.9 K/uL Normal 2.2-9.1 [facility] Comment on above: Performed By: #### C BC #### [address] [place] [address] GRAN % 53.4 % Normal 42-80 [facility] Comment on above: Performed By: #### C BC #### [facility] [address] [place] [address] Hematocrit (Bld) [Volume fraction] 32.7 % Low 37.0-47.0 [facility] Comment on above: Performed By: #### C BC #### [facility] [address] [place] [address] Hemoglobin (Bld) [Mass/Vol] 10.8 g/dL Low 12.0-16.0 [facility] Comment on above: Performed By: #### C BC #### [facility] [address] [place] [address] Lymphocytes (Bld) [#/Vol] 2.6 10*3/uL Normal 1.0-4.0 [facility] Comment on above: Performed By: #### C BC #### [facility] [address] [place] [address] Lymphocytes/100 WBC (Bld) 36.3 % Normal 16-48 [facility] Comment on above: Performed By: #### C BC #### [facility] [address] [place] [address] MCV (RBC) [Entitic vol] 79.5 fL Low 80-97 [facility] Comment on above: Performed By: #### C BC #### [address] [place] [address] MEAN CORPUSCULAR HGB 26.1 pg Normal 26.0-32.0 [facility] Comment on above: Performed By: #### C BC #### [address] [place] [address] MEAN CORPUSCULAR HGB CONC 32.9 g/dL Normal 31.0-36.0 [facility] Comment on above: Performed By: #### C BC #### [address] [place] [address] MONO DISTRIB WIDTH 15.75 Normal 0-20 [facility] Comment on above: Result Comment: For ED adult patients suspected of sepsis, MDW<=20.0 does not rule out sepsis or risk of sepsis Performed By: #### C BC #### [facility] [address] [place] [address] Monocytes (Bld) [#/Vol] 0.5 10*3/uL Normal 0.1-1.7 [facility] Comment on above: Performed By: #### C BC #### [facility] [address] [place] [address] Monocytes/100 WBC (Bld) 7.1 % Normal 3-9 [facility] Comment on above: Performed By: #### C BC #### [facility] [address] [place] [address] Platelet mean volume (Bld) [Entitic vol] 9.8 fL Normal 6.6-10.5 [facility] Comment on above: Performed By: #### C BC #### [facility] [address] [place] [address] Platelets (Bld) [#/Vol] 165 10*3/uL Normal 140-450 [facility] Comment on above: Performed By: #### C BC #### [facility] [address] [place] [address] RBC (Bld) [#/Vol] 4.12 10*6/uL Low 4.20-5.50 [facility] Comment on above: Performed By: #### C BC #### [facility] [address] [place] [address] RED CELL DISTRI WIDTH 17.7 % High 11.0-15.5 [facility] Comment on above: Performed By: #### C BC #### [facility] [address] [place] [address] WBC (Bld) [#/Vol] 7.3 10*3/uL Normal 4.0-11.0 [facility] Comment on above: Performed By: #### C BC #### [facility] [address] [place] [address] CHEST-2 VIEWon 02-13-2023 CHEST-2 VIEW LISA MESA Female [id number] Ordering physician: Leandra Keller LOC:ER [id number] Attending physician: 1995 27 DO S: 02/13/23 Acc#: [id number] Exam/Proc: CHEST-2 VIEW Dept: RADIOLOGY EXAMINATION: Exam Title:TWO XRAY VIEWS OF THE CHEST Completed Time: 02/13/2023 6:51 am Procedure Description:CHEST AP/PA and LATERAL COMPARISON: September 25, 2022 chest x-ray HISTORY: ORDERING SYSTEM PROVIDED HISTORY: TECHNOLOGIST PROVIDED HISTORY: Reason for Exam: shortness of breath FINDINGS: Heart size normal. Pulmonary vasculature normal in appearance. Aortic arch obscured. Rightward rotation somewhat limits evaluation. Lungs clear and adequately inflated. No evidence for effusion or pneumothorax. External chest leads. Subtle rotoscoliosis of the spine. IMPRESSION: [] No acute process demonstrated. Electronically signed By Zack Alicia DO 02/13/2023 6:55:15 AM EST Workstation ID : [id number] REPORT SIGNATURE ON FILE Electronically Signed Date/Time: 02/13/23654 Dictated Date/time: 02/13/23651 CC: Normal [facility] D-DIMERon 02-13-2023 D-DIMER 0.48 mg/L FEU Normal 0.0-0.59 [facility] Comment on above: Result Comment: The cut-off level for exclusion of DVT PE is <0.5 mg/L FEU Results of D-Dimer testing should be interpreted in conjunction with the patients's history and clinical presentation. Increased levels of D-Dimer may occur in the following: DVT,PE,DIC,Trauma,Cancer,Sepsis,,Cirrhosis, Rheumatoid Arthritis and Myocardial Infarction. NOTE: False negative results may be seen in patients on anti-coagulant therapy. Performed By: #### D SANA #### [address] [address] ED.PDOCon 02-13-2023 ED.PDOC LISA MESA Female [id number] Attending provider: SHANT HUTCHINSON [id number] Leandra Keller 1995 27 DOS: 02/13/23 Case endorsed to me this a.m. to follow-up on ultrasound results and final disposition. Patient's ultrasound showed no evidence of DVT. Lab work was reviewed and she has a mild anemia that is actu ally improved from previous. Otherwise remainder the screening lab works unremarkable and patient has normal vital signs resting comfortably. Will discharge to follow-up with primary care doc Addendum Signed By: Derrick Natarajan DO Sign Date/Time: 02/13/23752 Patient was informed of her anemia and has been told she has had before from low iron. She says she is not currently taking iron but she is encouraged to restart this. She just got a primary care d erik and she states she will follow-up. Addendum Signed By: Leandra Keller MD. Sign Date/Time: 02/13/23718 Hx/Exam - History of Present Illness Chief Complaint: ANXIETY Symptom Duration: Day(s) Intensity: mild-moderate Episode Frequency: constant Additional Comments: This is a 27-year-old female who is brought in by EMS because she is having some pain in her right medial thigh the past day intermittently and she also has a burning pain between her shoulder blades and she feels short of breath. Patient denies any history of PE or DVT. She is currently on her menses now and denies chance of . She states that she has not had fever chills cough or congestion. She says that she gets some palpitations but no significant chest pain. No history of trips travel or surgeries or hypercoagulable state. She said blood clots do run in her family. She denies any other complaints today and no other associated signs symptoms or exacerbating factors. - Review of Systems All Other Systems: Pertinent Positives in HPI, All Other Systems Negative - Past Medical History ED PMH: Yes Anxiety, Yes Diabetes (pre-diabetic), Yes HTN (gestational/pre-e) - Social History Smoking Status: Current every day smoker Hx Alcohol Use: Yes (Occasional) Living Conditions: Family - Physical Exam General Appearance: awake, alert, no apparent distress Eyes: PERRL, conjunctivae clear Head, Ears, Nose, and Throat: TMs normal, pharynx normal, mucous membranes moist Neck: supple, non-tender, no stridor, no masses Respiratory: lungs clear, no wheezes/rhonchi/rales Cardiovascular: regular rate, rhythm Abdomen/GI: non tender, soft, non-distended, normal bowel sounds, no organomegaly Back: no CVA tenderness, no vertebral tenderness Extremity: normal range of motion, tenderness (Mild tenderness over the right abductor muscle but there is no warmth erythema or skin changes. Normal dorsalis pedis anterior tibial pulses cap re fill less than 2 seconds sensation intact no pain of the hip or knee joints.No neurovascular compromise or evidence of infection on my exam) Pulses: Posterior Tibial: 2+, Dorsalis Pedis: 2+ Neurologic: no motor/sensory deficits Psychiatric: oriented x3, calm, normal affect Skin Exam: warm/dry Lymphatic: no adenopathy - Source of History Source of History: Nursing Notes/Vital Signs/Triage Reviewed and Agree Note(s) - Physician Notes Additional Notes, See Orders for Details: Patient was seen examined patient placed on monitor CBC BMP and D-dimer all ordered and reviewed. Patient denies any chance of . Patient has stable vital signs and stable blood workShe is had no ectopy on the monitor 02/13/23 06:34 02/13/23 07:03 02/13/23 06:25 Sodium 142 Potassium 3.6 Chloride 111 H Carbon Dioxide 24.0 Anion Gap 10.0 L Creatinine 0.70 Est GFR ( Amer) > 60.0 Glucose 120 H Calcium 8.5 02/13/23 07:11 If her ultrasound is negative she will be discharged home. 02/13/23 07:13 02/13/23 06:25 WBC 7.3 Hgb 10.8 L Plt Count 165 EKG - EKG EKG Interpretation: Preliminary ED Interpretation (Normal sinus rhythm at 86 with normal axis and intervals and no acute ST elevation.) Discharge Screen - Discharge Discharge Problem: Leg pain, Atypical chest pain Disposition: HOME/SELF CARE Condition: Stable Referrals: Call,On [Primary Care Provider] - Celso Mitchell [Family Provider] - Dictated By: Leandra Keller MD. Dictated Date/Time:02/13/23 0549 Electronically Signed Date/Time: 02/13/23 0714 [facility] LOWER EXT DVT RIGHTon 2022 LOWER EXT DVT RIGHT LISA MESA Female [id number] Ordering physician: Leandra Keller LOC:ER [id number] Attending physician: 1995 27 DO S: 02/13/23 Acc#: [id number] Exam/Proc: LOWER EXT DVT RIGHT Dept: ULTRASOUND EXAMINATION: Exam Title:DUPLEX ULTRASOUND OF THE RIGHT LOWER EXTREMITY FOR DVT Completed Time: 02/13/2023 7:47 am Procedure Description:DVT LOWER RIGHT COMPARISON: September 25, 2022 upper extremity DVT exam HISTORY: ORDERING SYSTEM PROVIDED HISTORY: TECHNOLOGIST PROVIDED HISTORY: Reason for Exam: pain TECHNIQUE: Duplex ultrasound using B-mode/medina scaled imaging and Doppler spectral analysis and color flow was obtained of the deep venous structures of the right lower extremity. High resolution grayscale, color and Doppler evaluation performed according to protocol. FINDINGS: Included portions of the common femoral, superficial femoral, popliteal, peroneal, and posterior tibial veins are grossly patent. Anterior tibial vein not evaluated on this exam. IMPRESSION:[] No evidence for deep venous thrombosis in the evaluated major veins. Electronically signed By Zack Alicia DO 02/13/2023 7:50:07 AM EST Workstation ID : [id number] REPORT SIGNATURE ON FILE Electronically Signed Date/Time: 02/13/23 0750 Dictated Date/time: 02/13/23 0749 CC: Normal [facility] Laboratory studies (set)on 0 02-13-2023 Anion gap [Moles/Vol] 10.0 mmol/L Low 11- [facility] Basophils (Bld) [#/Vol] 0.0 10*3/uL 0-0.1 [facility] Basophils/100 WBC (Bld) 0.40 % 0-2 [facility] Calcium [Mass/Vol] 8.5 mg/dL 8.5-10.1 [facility] Chloride [Moles/Vol] 111 mmol/L High 98-107 [facility] CO2 [Moles/Vol] 24.0 mmol/L 21-32 [facility] Creatinine [Mass/Vol] 0.70 mg/dL 0.55-1.02 [facility] D-Dimer, Quantitative 0.48 mg/L FEU 0.0-0.59 [facility] Comment on above: The cut-off level fo r exclusion of DVT & PE is <0.5 mg/L FEU Results of D-Dimer testing should be interpreted in conjunction with the patients's history and clinical presentation. Increased levels of D-Dimer may occur in the following: DVT,PE,DIC,Trauma,Cancer,Sepsis,,Cirrhosis, Rheumatoid Arthritis and Myocardial Infarction. NOTE: False negative results may be seen in patients on anti-coagulant therapy. Eosinophils (Bld) [#/Vol] 0.2 10*3/uL 0.0-1.80 [facility] Eosinophils/100 WBC (Bld) 2.8 % 0-8 [facility] Erythrocyte distribution width (RBC) [Ratio] 17.7 % High 11.0-15.5 [facility] Estimated GFR () [facility] Comment on above: THE NORMAL LEVEL OF GFR VARIES ACCORDING TO AGE, SEX, AND BODY SIZE. A GFR LEVEL OF LESS THAN 60 ML/MIN REPRESENTS LOSS OF THE ADULT LEVEL OF NORMAL KIDNEY FUNCTION. GFR/1.73 sq M.predicted among non-blacks MDRD (S/P/Bld) [Vol rate/Area] [facility] Glucose [Mass/Vol] 120 mg/dL High 70-100 [facility] Granulocytes (Bld) [#/Vol] 3.9 10*3/uL 2.2-9.1 [facility] Granulocytes/100 WBC (Bld) 53.4 % 42-80 [facility] Hematocrit (Bld) [Volume fraction] 32.7 % Low 37.0-47.0 [facility] Hemoglobin (Bld) [Mass/Vol] 10.8 g/dL Low 12.0-16.0 [facility] Lymphocytes (Bld) [#/Vol] 2.6 10*3/uL 1.0-4.0 [facility] Lymphocytes/100 WBC (Bld) 36.3 % 16-48 [facility] MCH (RBC) [Entitic mass] 26.1 pg 26.0-32.0 [facility] MCHC (RBC) [Mass/Vol] 32.9 g/dL 31.0-36.0 [facility] MCV (RBC) [Entitic vol] 79.5 fL Low 80-97 [facility] Monocyte distribution width Auto (Bld) [Entitic vol] 15.75 0-20 [facility] Comment on above: For ED adult patient s suspected of sepsis, MDW<=20.0 does not rule out sepsis or risk of sepsis Monocytes (Bld) [#/Vol] 0.5 10*3/uL 0.1-1.7 [facility] Monocytes/100 WBC (Bld) 7.1 % 3-9 [facility] Platelet mean volume (Bld) [Entitic vol] 9.8 fL 6.6-10.5 [facility] Platelets (Bld) [#/Vol] 165 10*3/uL 140-450 [facility] Potassium [Moles/Vol] 3.6 mmol/L 3.5-5.1 [facility] RBC (Bld) [#/Vol] 4.12 10*6/uL Low 4.20-5.50 [facility] Sodium [Moles/Vol] 142 mmol/L 136-145 [facility] Urea nitrogen [Mass/Vol] 10.0 mg/dL 7-18 [facility] WBC (Bld) [#/Vol] 7.3 10*3/uL 4.0-11.[address] [facility] [address] CHEST PULMONARY EMBOLISM W CONTRASTon 09-27-2022 CT CHEST PULMONARY EMBOLISM W CONTRAST EXAMINATION: CTA OF THE CHEST 09/26/2022 10:18 pm TECHNIQUE: CTA of the chest was performed after the administration of intravenous contrast. Multiplanar reformatted images are provided for review. MIP images are provided for review. Automated exposure control, iterative reconstruction, and/or weight based adjustment of the mA/kV was utilized to reduce the radiation dose to as low as reasonably achievable. COMPARISON: None. HISTORY: ORDERING SYSTEM PROVIDED HISTORY: Tachycardia, rulle out PE TECHNOLOGIST PROVIDED HISTORY: Tachycardia, rulle out PE Decision Support Exception - unselect if not a suspected or confirmed emergency medical condition->Emergency Medical Condition (MA) Reason for Exam: Tachycardia, rulle out PE FINDINGS: Pulmonary Arteries: Pulmonary arteries are adequately opacified for evaluation. No evidence of intraluminal filling defect to suggest pulmonary embolism. Main pulmonary artery is normal in caliber. Mediastinum: No evidence of mediastinal lymphadenopathy. The heart and pericardium demonstrate no acute abnormality. There is no acute abnormality of the thoracic aorta. Lungs/pleura: The lungs are without acute process. No focal consolidation or pulmonary edema. No evidence of pleural effusion or pneumothorax. Upper Abdomen: Limited images of the upper abdomen are unremarkable. Soft Tissues/Bones: No acute bone or soft tissue abnormality. IMPRESSION: No evidence of pulmonary embolism or acute pulmonary abnormality. Interpreted by: Beau Nunn MD Signed by: Beau Nunn MD 09/26/22 Final result Normal [facility] BMPon 09-26-2022 Anion gap [Moles/Vol] 11 mmol/L 9 - 17 mmol/L [facility] Calcium [Mass/Vol] 9.6 mg/dL 8.6 - 10. 4 mg/dL [facility] Chloride [Moles/Vol] 106 mmol/L 98 - 10 7 mmol/L [facility] CO2 [Moles/Vol] 22 mmol/L 20 - 31 mmol/L [facility] Creatinine [Mass/Vol] 0.59 mg/dL 0.50 - 0.90 mg/dL [facility] GFR/1.73 sq M.predicted MDRD (S/P/Bld) [Vol rate/Area] - PINF [facility] Comment on above: These results are not intended for use in patients <18 years of age. eGFR results are calculated without a race factor using the 2020 CKD-EPI equation. Careful clinical correlation is recommended, particularly when comparing to results calculated using previous equations. The CKD-EPI equation is less accurate in patients with extremes of muscle mass, extra-renal metabolism of creatine, excessive creatine ingestion, or following therapy that affects renal tubular secretion. Glucose [Mass/Vol] 124 mg/dL High 70 - 99 mg/dL [facility] Interpretation and review of laboratory results Abnormal [facility] Potassium [Moles/Vol] 3.6 mmol/L Low 3.7 - 5.3 mmol/L [facility] Sodium [Moles/Vol] 139 mmol/L 135 - 144 mmol/L [facility] Urea nitrogen [Mass/Vol] 7 mg/dL 6 - 20 mg/dL [facility] Basic Metabolic Profon 09-26 Anion gap [Moles/Vol] 11 mmol/L Normal 9-17 [facility] Comment on above: Performed By: #### D EMMETT, BMP, HCG, CDP, TSH, MG, TROPI #### [address] [id number] Pattern Molder: Chaitanya Mtz MD Calcium [Mass/Vol] 9.6 mg/dL Normal 8.6-10.4 [facility] Comment on above: Performed By: #### Gerri EMMETT, BMP, HCG, CDP, TSH, MG, TROPI #### [facility] [address] [place] [id number] Pattern Molder: Chaitanya Mtz MD Chloride [Moles/Vol] 106 mmol/L Normal 98-107 [facility] Comment on above: Performed By: #### Gerri EMMETT, BMP, HCG, CDP, TSH, MG, TROPI #### [facility] [address] [place] [address] [phone] Pattern Molder: Chaitanya Mtz MD CO2 [Moles/Vol] 22 mmol/L Normal 20-31 [facility] Comment on above: Performed By: #### D EMMETT, BMP, HCG, CDP, TSH, MG, TROPI #### [facility] [address] [place] [address] [phone] Pattern Molder: Chaitanya Mtz MD Creatinine [Mass/Vol] 0.59 mg/dL Normal 0.50-0.90 [facility] Comment on above: Performed By: #### D EMMETT, BMP, HCG, CDP, TSH, MG, TROPI #### [facility] [address] [place] [address] [phone] Pattern Molder: Chaitanya Mtz MD GFR/1.73 sq M.predicted among non-blacks MDRD (S/P/Bld) [Vol rate/Area] mL/min/{1.73_m2} Normal >60 [facility] Comment on above: Result Comment: These results are not intended for use in patients <18 years of age. eGFR results are calculated without a race factor using the 2020 CKD-EPI equation. Careful clinical correlation is recommended, particularly when comparing to results calculated using previous equations. The CKD-EPI equation is less accurate in patients with extremes of muscle mass, extra-renal metabolism of creatine, excessive creatine ingestion, or following therapy that affects renal tubular secretion. Performed By: #### D EMMETT, BMP, HCG, CDP, TSH, MG, TROPI #### [facility] [address] [place] [address] [phone] Pattern Molder: Chaitanya Mtz MD Glucose [Mass/Vol] 124 mg/dL High 70-99 [facility] Comment on above: Performed By: #### D EMMETT, BMP, HCG, CDP, TSH, MG, TROPI #### [facility] [address] [place] [address] [phone] Pattern Molder: Chaitanya Mtz MD Potassium [Moles/Vol] 3.6 mmol/L Low 3.7-5.3 [facility] Comment on above: Performed By: #### D EMMETT, BMP, HCG, CDP, TSH, MG, TROPI #### [facility] [address] [place] [address] [phone] Pattern Molder: Chaitanya Mtz MD Sodium [Moles/Vol] 139 mmol/L Normal 135-144 [facility] Comment on above: Performed By: #### D EMMETT, BMP, HCG, CDP, TSH, MG, TROPI #### [facility] [place], [place] [phone] Pattern Molder: Chaitanya Mtz MD Urea nitrogen [Mass/Vol] 7 mg/dL Normal 6-20 [facility] Comment on above: Performed By: #### D EMMETT, BMP, HCG, CDP, TSH, MG, TROPI #### [facility] [address] [place] [address] [phone] Pattern Molder: Chaitanya Mtz MD CBC with Auto Differentialon 0 Absolute Eos # 0.09 [place] [facility] Absolute Immature Granulocyte [facility] Absolute Lymph # 2.78 [facility] Absolute [place] # 0.38 [facility] RS [facility] Basophils (Bld) [#/Vol] 0.03 10*3/uL [facility] Interpretation and review of laboratory results Abnormal [facility] NRBC Automated 0.0 0.0 per 100 WBC [facility] Platelet distribution width (Bld) [Ratio] 14.6 % High 11.8 - 14.4 % [facility] RBC (Bld) [#/Vol] ANISOCYTOSIS PRESENT [facility] Segmented neutrophils/100 WBC (Bld) 49 % 36 - 65 % [facility] Segs Absolute 3.16 [facility] CBC with Diffon 09-26-2022 Abs. Basophil 0.03 k/uL Normal 0.00-0.20 [facility] Comment on above: Performed By: #### D EMMETT, BMP, HCG, CDP, TSH, MG, TROPI #### [facility] [place], [place] [phone] Pattern Molder: Chaitanya Mtz MD Abs.Imm.Granulocyte <0.03 Normal 0.00-0.30 [facility] Comment on above: Performed By: #### D EMMETT, BMP, HCG, CDP, TSH, MG, TROPI #### [facility] [address] [place] [address] [phone] Pattern Molder: Chaitanya Mtz MD Abs.Neutrophil (Seg) 3.16 k/uL Normal 1.50-8.10 [facility] Comment on above: Performed By: #### D EMMETT, BMP, HCG, CDP, TSH, MG, TROPI #### [facility] [address] [place] [phone] Pattern Molder: Chaitanya Mtz MD Eosinophils (Bld) [#/Vol] 0.09 10*3/uL Normal 0.00-0.44 [facility] Comment on above: Performed By: #### D EMMETT, BMP, HCG, CDP, TSH, MG, TROPI #### [facility] [address] [place] [phone] Pattern Molder: Chaitanya Mtz MD Erythrocyte distribution width (RBC) [Ratio] 14.6 % High 11.8-14.4 [facility] Comment on above: Performed By: #### D EMMETT, BMP, HCG, CDP, TSH, MG, TROPI #### [facility] [address] [place] [phone] Pattern Molder: Chaitanya Mtz MD Lymphocytes (Bld) [#/Vol] 2.78 10*3/uL Normal 1.10-3.70 [facility] Comment on above: Performed By: #### D EMMETT, BMP, HCG, CDP, TSH, MG, TROPI #### [facility] [address] [place] [phone] Pattern Molder: Chaitanya Mtz MD Monocytes (Bld) [#/Vol] 0.38 10*3/uL Normal 0.10-1.20 [facility] Comment on above: Performed By: #### D EMMETT, BMP, HCG, CDP, TSH, MG, TROPI #### [facility] [address] [place] [phone] Pattern Molder: Chaitanya Mtz MD Neutrophil (Seg) 49 % Normal 36-65 [facility] Comment on above: Performed By: #### D EMMETT, BMP, HCG, CDP, TSH, MG, TROPI #### [address] [id number] Pattern Molder: Chaitanya Mtz MD NRBC Automated 0.0 per 100 WBC Normal 0.0 [facility] Comment on above: Performed By: #### D EMMETT, BMP, HCG, CDP, TSH, MG, TROPI #### [address] [phone] Pattern Molder: Chaitanya Mtz MD RBC morphology finding Nom (Bld) ANISOCYTOSIS PRESENT Normal [facility] Comment on above: Performed By: #### D EMMETT, BMP, HCG, CDP, TSH, MG, TROPI #### [place] [address] Pattern Molder: Chaitanya Mtz MD Basophils/100 WBC (Bld) 1 % Normal 0-2 [facility] Comment on above: Performed By: #### D EMMETT, BMP, HCG, CDP, TSH, MG, TROPI #### [place] [address] Pattern Molder: Chaitanya Mtz MD Eosinophils/100 WBC (Bld) 1 % Normal 1-4 [facility] Comment on above: Performed By: #### D EMMETT, BMP, HCG, CDP, TSH, MG, TROPI #### [facility] [address] [place] [phone] Pattern Molder: Chaitanya Mtz MD Hematocrit (Bld) [Volume fraction] 34.4 % Low 36.3-47.1 [facility] Comment on above: Performed By: #### D EMMETT, BMP, HCG, CDP, TSH, MG, TROPI #### [facility] [address] [place] [phone] Pattern Molder: Chaitanya Mtz MD Hemoglobin (Bld) [Mass/Vol] 10.6 g/dL Low 11.9-15.1 [facility] Comment on above: Performed By: #### D EMMETT, BMP, HCG, CDP, TSH, MG, TROPI #### [facility] [address] [place] [phone] Pattern Molder: Chaitanya Mtz MD Immature granulocytes/100 WBC (Bld) 0 % Normal 0 [facility] Comment on above: Performed By: #### D EMMETT, BMP, HCG, CDP, TSH, MG, TROPI #### [facility] [address] [place] [id number] Pattern Molder: Chaitanya Mtz MD Lymphocytes/100 WBC (Bld) 43 % Normal 24-43 [facility] Comment on above: Performed By: #### D EMMETT, BMP, HCG, CDP, TSH, MG, TROPI #### [facility] [address] [place] [id number] Pattern Molder: Chaitanya Mtz MD MCH (RBC) [Entitic mass] 26.5 pg Normal 25.2-33.5 [facility] Comment on above: Performed By: #### D EMMETT, BMP, HCG, CDP, TSH, MG, TROPI #### [facility] [address] [place] [id number] Pattern Molder: Chaitanya Mtz MD MCHC (RBC) [Mass/Vol] 30.8 g/dL Normal 28.4-34.8 [facility] Comment on above: Performed By: #### D EMMETT, BMP, HCG, CDP, TSH, MG, TROPI #### [email or web address] [address] [place] [phone] Pattern Molder: Chaitanya Mtz MD MCV (RBC) [Entitic vol] 86.0 fL Normal 82.6-102.9 [facility] Comment on above: Performed By: #### D EMMETT, BMP, HCG, CDP, TSH, MG, TROPI #### [facility] [address] [place] [phone] Pattern Molder: Chaitanya Mtz MD Monocytes/100 WBC (Bld) 6 % Normal 3-12 [facility] Comment on above: Performed By: #### D EMMETT, BMP, HCG, CDP, TSH, MG, TROPI #### [facility] [address] [place] [phone] Pattern Molder: Chaitanya Mtz MD Platelet mean volume (Bld) [Entitic vol] 11.5 fL Normal 8.1-13.5 [facility] Comment on above: Performed By: #### D EMMETT, BMP, HCG, CDP, TSH, MG, TROPI #### [facility] [address] [place] [id number] Pattern Molder: Chaitanya Mtz MD Platelets (Bld) [#/Vol] 201 10*3/uL Normal 138-453 [facility] Comment on above: Performed By: #### Gerri EMMETT, BMP, HCG, CDP, TSH, MG, TROPI #### [facility] [address] [place] [phone] Pattern Molder: Chaitanya Mtz MD RBC (Bld) [#/Vol] 4.00 10*6/uL Normal 3.95-5.11 [facility] Comment on above: Performed By: #### D EMMETT, BMP, HCG, CDP, TSH, MG, TROPI #### [facility] [address] [place] [id number] Pattern Molder: Chaitanya Mtz MD WBC (Bld) [#/Vol] 6.5 10*3/uL Normal 3.5-11.3 [facility] Comment on above: Performed By: #### D EMMETT, BMP, HCG, CDP, TSH, MG, TROPI #### [facility] [address] [place] [phone] Pattern Molder: Chaitanya Mtz MD CT CHEST PULMONARY EMBOLISM W CONTRASTon 09-26-2022 No evidence of pulmonary embolism or acute pulmonary abnormality. [facility] CONSOLIDATED EXAMINATION: CTA OF THE CHEST 09/26/2022 10:18 pm TECHNIQUE: CTA of the chest was performed after the administration of intravenous contrast. Multiplanar reformatted images are provided for review. MIP images are provided for review. Automated exposure control, iterative reconstruction, and/or weight based adjustment of the mA/kV was utilized to reduce the radiation dose to as low as reasonably achievable. COMPARISON: None. HISTORY: ORDERING SYSTEM PROVIDED HISTORY: Tachycardia, rulle out PE TECHNOLOGIST PROVIDED HISTORY: Tachycardia, rulle out PE Decision Support Exception - unselect if not a suspected or confirmed emergency medical condition->Emergency Medical Condition (MA) Reason for Exam: Tachycardia, rulle out PE FINDINGS: Pulmonary Arteries: Pulmonary arteries are adequately opacified for evaluation. No evidence of intraluminal filling defect to suggest pulmonary embolism. Main pulmonary artery is normal in caliber. Mediastinum: No evidence of mediastinal lymphadenopathy. The heart and pericardium demonstrate no acute abnormality. There is no acute abnormality of the thoracic aorta. Lungs/pleura: The lungs are without acute process. No focal consolidation or pulmonary edema. No evidence of pleural effusion or pneumothorax. Upper Abdomen: Limited images of the upper abdomen are unremarkable. Soft Tissues/Bones: No acute bone or soft tissue abnormality. [facility] CONSOLIDATED Beau Nunn MD - 09/26/2022 EXAMINATION: CTA OF THE CHEST 09/26/2022 10:18 pm TECHNIQUE: CTA of the chest was performed after the administration of intravenous contrast. Multiplanar reformatted images are provided for review. MIP images are provided for review. Automated exposure control, iterative reconstruction, and/or weight based adjustment of the mA/kV was utilized to reduce the radiation dose to as low as reasonably achievable. COMPARISON: None. HISTORY: ORDERING SYSTEM PROVIDED HISTORY: Tachycardia, rulle out PE TECHNOLOGIST PROVIDED HISTORY: Tachycardia, rulle out PE Decision Support Exception - unselect if not a suspected or confirmed emergency medical condition->Emergency Medical Condition (MA) Reason for Exam: Tachycardia, rulle out PE FINDINGS: Pulmonary Arteries: Pulmonary arteries are adequately opacified for evaluation. No evidence of intraluminal filling defect to suggest pulmonary embolism. Main pulmonary artery is normal in caliber. Mediastinum: No evidence of mediastinal lymphadenopathy. The heart and pericardium demonstrate no acute abnormality. There is no acute abnormality of the thoracic aorta. Lungs/pleura: The lungs are without acute process. No focal consolidation or pulmonary edema. No evidence of pleural effusion or pneumothorax. Upper Abdomen: Limited images of the upper abdomen are unremarkable. Soft Tissues/Bones: No acute bone or soft tissue abnormality. IMPRESSION: No evidence of pulmonary embolism or acute pulmonary abnormality. [facility] Phone: Radiology Study observation (narrative) [facility] Phone: CT CHEST PULMONARY EMBOLISM W CONTRASTOrdered By: Beau Nunn on 09-26-2022 [employer] Phone: D-Dimer Teston 09-26-2022 D-Dimer Test 0.50 mg/L FEU Normal [facility] Comment on above: Result Comment: When combined with a low clinical probability, a D dimer value of <0.50 mg/L FEU is considered negative for DVT and PE (negative predictive value of 98%, sensitivity of 97%). If this test is not being used to help rule out DVT and PE, then the following reference range should be utilized: 0.00 - 1.02 mg/L FEU. The [employer] SPINE D-Dimer assay is intended for use as an aid in the diagnosis of venous thromboembolism (DVT and PE) and the results should be interpreted in conjunction with the patient's medical history, clinical presentation, and other findings. Elevated levels of D-dimer activity can be seen in any state of coagulation activation and is not recommended in patients with therapeutic dose anticoagulant therapy for >24 hours, fibrinolytic therapy within the previous 7 days, trauma or surgery within the previous 4 weeks, disseminated malignancies, aortic aneurysm, sepsis, severe infections, pneumonia, severe skin infections, liver cirrhosis, advanced age, coronary disease, diabetes, and . A very low percentage of patients with DVT may yield D-dimer results below the cutoff of 0.5 mg/L FEU. This is known to be more prevalent in patients with distal DVT. Performed By: #### D EMMETT, BMP, HCG, CDP, TSH, MG, TROPI #### [facility] [address] [place] [address] [id number] Pattern Molder: Chaitanya Mtz MD D-Dimer, Quantitativeon 08-31 Fibrin D-dimer FEU IA (Bld) [Mass/Vol] 0.50 ug/mL mg/L FEU [facility] Comment on above: When combined with a low clinical probability, a D dimer value of <0.50 mg/L FEU is considered negative for DVT and PE (negative predictive value of 98%, sensitivity of 97%). If this test is not being used to help rule out DVT and PE, then the following reference range should be utilized: 0.00 - 1.02 mg/L FEU. The [employer] SPINE D-Dimer assay is intended for use as an aid in the diagnosis of venous thromboembolism (DVT and PE) and the results should be interpreted in conjunction with the patient's medical history, clinical presentation, and other findings. Elevated levels of D-dimer activity can be seen in any state of coagulation activation and is not recommended in patients with therapeutic dose anticoagulant therapy for >24 hours, fibrinolytic therapy within the previous 7 days, trauma or surgery within the previous 4 weeks, disseminated malignancies, aortic aneurysm, sepsis, severe infections, pneumonia, severe skin infections, liver cirrhosis, advanced age, coronary disease, diabetes, and . A very low percentage of patients with DVT may yield D-dimer results below the cutoff of 0.5 mg/L FEU. This is known to be more prevalent in patients with distal DVT. [facility] HCG Qualitative, Serumon hCG Qual Negative NEGATIVE [facility] Comment on above: Specimens with hCG l evels near the threshold of the test (25 mIU/mL) may give a negative or indeterminate result. In such cases, another test should be performed with a new specimen in 48-72 hours. If early is suspected clinically in this setting, correlation with quantitative serum b-hCG level is suggested. [facility] has confirmed the use of plasma for this test. This has not been cleared or approved by the U.S. Food and Drug Administration. The FDA has determined that such clearance is not necessary. [facility] HCG Screen, Bloodon 09-26-19 HCG Screen, Blood Negative Normal NEG [facility] Comment on above: Result Comment: Spec imens with hCG levels near the threshold of the test (25 mIU/mL) may give a negative or indeterminate result. In such cases, another test should be performed with a new specimen in 48-72 hours. If early is suspected clinically in this setting, correlation with quantitative serum b-hCG level is suggested. [facility] has confirmed the use of plasma for this test. This has not been cleared or approved by the U.S. Food and Drug Administration. The FDA has determined that such clearance is not necessary. Performed By: #### D EMMETT, BMP, HCG, CDP, TSH, MG, TROPI #### [facility] [place] [address] Pattern Molder: Chaitanya Mtz MD Magnesiumon 09-26-2022 Magnesium [Mass/Vol] 2.0 mg/dL Normal 1.6-2.6 [facility] Comment on above: Performed By: #### D EMMETT, BMP, HCG, CDP, TSH, MG, TROPI #### [facility] [address] [place] [id number] Pattern Molder: Chaitanya Mtz MD Magnesium [Mass/Vol] 2.0 mg/dL 1.6 - 2 .6 mg/dL [facility] CompStak No Panel Informationon 09-26 [facility] CompStak POC Glucose Fingerstickon Glucose [Mass/Vol] 116 mg/dL High 65 - 105 mg/dL [facility] Interpretation and review of laboratory results Abnormal [facility] TSHon 09-26-2022 TSH Qn 0.37 m[IU]/L [facility] Thyroid Stim. Horm.on 2022 Thyroid Stim. Horm. 0.37 uIU/mL Normal 0.30-5.00 [facility] Comment on above: Performed By: #### D EMMETT, BMP, HCG, CDP, TSH, MG, TROPI #### [facility] [address] [place] [id number] Pattern Molder: Chaitanya Mtz MD Troponinon 09-26-2022 Troponin, High Sens <6 Normal 0-14 [facility] Comment on above: Result Comment: High Sensitivity Troponin values cannot be compared with other Troponin methodologies. Performed By: #### D EMMETT, BMP, HCG, CDP, TSH, MG, TROPI #### [facility] [employer] [address] [place] [address] Pattern Molder: Chaitanya Mtz MD Troponin I.cardiac DL <= 0.01 ng/mL [Mass/Vol] ng/L 0 - 14 ng/L [facility] Comment on above: High Sensitivity Tro ponin values cannot be compared with other Troponin methodologies. Laboratory studies (set)on 0 09-25-2022 Troponin 3.7 pg/mL 0-53.7 [facility] Comment on above: Troponin Reference R flip: Male: 0-78.5 pg/mL (ng/L) Female: 0-53.7 pg/mL (ng/L) Note: The new high sensitivity Troponin units are in pg/mL (ng/L) Albumin [Mass/Vol] 3.7 g/dL 3.4-5.0 [facility] Albumin/Globulin [Mass ratio] 1.0 {ratio} Low 1.1-1.8 [facility] ALP [Catalytic activity/Vol] 86 U/L 45-117 [facility] ALT [Catalytic activity/Vol] 18 U/L 12-78 [facility] Anion gap [Moles/Vol] 5.9 mmol/L Low 11-23 [facility] Appearance (U) CLEAR [facility] AST [Catalytic activity/Vol] 10 U/L Low 15-37 [facility] Basophils (Bld) [#/Vol] 0.0 10*3/uL 0-0.1 [facility] Basophils/100 WBC (Bld) 0.40 % 0-2 [facility] Bilirubin [Mass/Vol] 0.4 mg/dL 0.2-1.0 [facility] Bilirubin Ql (U) NEGATIVE [facility] Calcium [Mass/Vol] 8.8 mg/dL 8.5-10.1 [facility] Chloride [Moles/Vol] 110 mmol/L High 98-107 [facility] CK [Catalytic activity/Vol] 70 U/L 26-192 [facility] CO2 [Moles/Vol] 26.0 mmol/L 21-32 [facility] Color (U) [facility] Creatinine [Mass/Vol] 0.70 mg/dL 0.55-1.02 [facility] D-Dimer, Quantitative 0.45 mg/L FEU 0.0-0.59 [facility] Comment on above: The cut-off level fo r exclusion of DVT & PE is <0.5 mg/L FEU Results of D-Dimer testing should be interpreted in conjunction with the patients's history and clinical presentation. Increased levels of D-Dimer may occur in the following: DVT,PE,DIC,Trauma,Cancer,Sepsis,,Cirrhosis, Rheumatoid Arthritis and Myocardial Infarction. NOTE: False negative results may be seen in patients on anti-coagulant therapy. Eosinophils (Bld) [#/Vol] 0.1 10*3/uL 0.0-1.80 [facility] Eosinophils/100 WBC (Bld) 2.3 % 0-8 [facility] Erythrocyte distribution width (RBC) [Ratio] 15.9 % High 11.0-15.5 [facility] Estimated GFR () [facility] Comment on above: THE NORMAL LEVEL OF GFR VARIES ACCORDING TO AGE, SEX, AND BODY SIZE. A GFR LEVEL OF LESS THAN 60 ML/MIN REPRESENTS LOSS OF THE ADULT LEVEL OF NORMAL KIDNEY FUNCTION. GFR/1.73 sq M.predicted among non-blacks MDRD (S/P/Bld) [Vol rate/Area] [facility] Globulin (S) [Mass/Vol] 3.5 g/dL 2.5-4.6 [facility] Glucose [Mass/Vol] 116 mg/dL High 70-100 [facility] Glucose Ql (U) NEGATIVE [facility] Granulocytes (Bld) [#/Vol] 3.0 10*3/uL 2.2-9.1 [facility] Granulocytes/100 WBC (Bld) 50.3 % 42-80 [facility] HCG Qn (U) [facility] Hematocrit (Bld) [Volume fraction] 32.0 % Low 37.0-47.0 [facility] Hemoglobin (Bld) [Mass/Vol] 10.4 g/dL Low 12.0-16.0 [facility] Hemoglobin Ql (U) NEGATIVE [facility] Ketones Ql (U) NEGATIVE [facility] Leukocyte esterase Test strip Ql (U) NEGATIVE [facility] Lymphocytes (Bld) [#/Vol] 2.3 10*3/uL 1.0-4.0 [facility] Lymphocytes/100 WBC (Bld) 38.5 % 16-48 [facility] MCH (RBC) [Entitic mass] 26.8 pg 26.0-32.0 [facility] MCHC (RBC) [Mass/Vol] 32.5 g/dL 31.0-36.0 [facility] MCV (RBC) [Entitic vol] 82.2 fL 80-97 [facility] Monocyte distribution width Auto (Bld) [Entitic vol] 17.39 0-20 [facility] Comment on above: For ED adult patient s suspected of sepsis, MDW<=20.0 does not rule out sepsis or risk of sepsis Monocytes (Bld) [#/Vol] 0.5 10*3/uL 0.1-1.7 [facility] Monocytes/100 WBC (Bld) 8.5 % 3-9 [facility] Nitrite Ql (U) NEGATIVE [facility] pH (U) 6.0 [pH] 5.0-9.0 [facility] Platelet mean volume (Bld) [Entitic vol] 9.4 fL 6.6-10.5 [facility] Platelets (Bld) [#/Vol] 185 10*3/uL 140-450 [facility] Potassium [Moles/Vol] 4.1 mmol/L 3.5-5.1 [facility] Protein [Mass/Vol] 7.2 g/dL 6.0-8.3 [facility] Protein Ql (U) NEGATIVE [facility] RBC (Bld) [#/Vol] 3.89 10*6/uL Low 4.20-5.50 [facility] Sodium [Moles/Vol] 138 mmol/L 136-145 [facility] Specific gravity (U) [Rel density] 1.003-1.035 [facility] Urea nitrogen [Mass/Vol] 8.0 mg/dL 7-18 [facility] Urobilinogen Ql (U) 0.2 E.U./dL <=1.0 [facility] WBC (Bld) [#/Vol] 5.9 10*3/uL 4.0-11.0 [facility] LABORATORYOrdered By: Rupali Jones on 03-08-2022 Blood Glucose Testing Reason Routine (03/08/22 7:11 AM) [facility] Glucose [Mass/Vol] 158 mg/dL Invalid Interpretation Code 70 - 110 mg/dL [facility] LABORATORYOrdered By: Nelson Tran on 03-07-2022 Glucose [Mass/Vol] 110 mg/dL Invalid Interpretation Code 70 - 110 mg/dL [facility] Blood Glucose Testing Reason Routine (03/07/22 6:15 PM) [facility] Glucose [Mass/Vol] 210 mg/dL Invalid Interpretation Code 70 - 110 mg/dL [facility] LABORATORYOrdered By: Linh Mix on 2022 Blood Glucose Testing Reason Routine (03/06/22 8:45 PM) [facility] LABORATORYOrdered By: [employer] on 2022 Albumin BCP dye [Mass/Vol] 2.3 G/dL Invalid Interpretation Code 3.2 - 4.8 G/dL ADM SS Albumin/Globulin [Mass ratio] 0.9 {ratio} Invalid Interpretation Code 0.9 - 1.6 ratio ADM SS ALP [Catalytic activity/Vol] 88 U/L Invalid Interpretation Code 38 - 126 U/L ADM SS ALT No additional P-5'-P [Catalytic activity/Vol] 15 U/L Invalid Interpretation Code 10 - 49 U/L ADM SS AST [Catalytic activity/Vol] 19 U/L Invalid Interpretation Code 8 - 34 U/L ADM SS Bilirubin [Mass/Vol] 0.20 mg/dL Invalid Interpretation Code 0.20 - 1.20 mg/dL ADM SS Calcium [Mass/Vol] 9.0 mg/dL Invalid Interpretation Code 8.7 - 10.4 mg/dL ADM SS Chloride [Moles/Vol] 109 mmol/L Invalid Interpretation Code 98 - 110 mEq/L ADM SS CO2 [Moles/Vol] 24 mmol/L Invalid Interpretation Code 22 - 32 mEq/L ADM SS Creatinine [Mass/Vol] 0.66 mg/dL Invalid Interpretation Code 0.50 - 1.20 mg/dL ADM SS Electrolyte Balance 6.0 mEq/L Invalid Interpretation Code 4.0 - 15.0 mEq/L ADM SS GFR/1.73 sq M.predicted among blacks MDRD (S/P/Bld) [Vol rate/Area] ml/min/1.73sqm Invalid Interpretation Code Chemistry S GFR/1.73 sq M.predicted among non-blacks MDRD (S/P/Bld) [Vol rate/Area] ml/min/1.73sqm Invalid Interpretation Code Chemistry S Globulin 2.7 G/dL Invalid Interpretation Code 1.5 - 3.8 G/dL ADM SS Glucose [Mass/Vol] 126 mg/dL Invalid Interpretation Code 70 - 110 mg/dL ADM SS LDH Lactate to pyruvate reaction [Catalytic activity/Vol] 190 1 Invalid Interpretation Code 120 - 246 U/L ADM SS Potassium [Moles/Vol] 4.2 mmol/L Invalid Interpretation Code 3.5 - 5.0 mEq/L ADM SS Protein [Mass/Vol] 5.0 G/dL Invalid Interpretation Code 5.7 - 8.2 G/dL ADM SS Sodium [Moles/Vol] 139 mmol/L Invalid Interpretation Code 136 - 145 mEq/L ADM SS Urea nitrogen [Mass/Vol] 12.0 mg/dL Invalid Interpretation Code 8.0 - 22.0 mg/dL ADM SS Urea nitrogen/Creatinine [Mass ratio] 18.2 ratio Invalid Interpretation Code 10.0 - 22.0 ratio ADM SS Basophils (Bld) [#/Vol] 0.0 103/mcL Invalid Interpretation Code 0.0 - 0.3 10^3/mcL AH Workflow SS Basophils/100 WBC (Bld) 0.3 % Invalid Interpretation Code 0.0 - 2.5 % Workflow SS Eosinophils (Bld) [#/Vol] 0.1 103/mcL Invalid Interpretation Code 0.0 - 0.7 10^3/mcL Workflow SS Eosinophils/100 WBC (Bld) 0.6 % Invalid Interpretation Code 0.0 - 6.0 % AH Workflow SS Erythrocyte distribution width (RBC) [Ratio] 14.2 % Invalid Interpretation Code 11.5 - 15.5 % AH Workflow SS HbA1c (Bld) [Mass fraction] 7.2 % Invalid Interpretation Code 4.0 - 6.0 % AH Auto Chem SS Hematocrit (Bld) [Volume fraction] 27.8 % Invalid Interpretation Code 34.0 - 46.0 % AH Workflow SS Hemoglobin (Bld) [Mass/Vol] 9.6 G/dL Invalid Interpretation Code 12.0 - 16.0 G/dL AH Workflow SS Lymphocytes (Bld) [#/Vol] 3.1 103/mcL Invalid Interpretation Code 0.9 - 4.3 10^3/mcL Workflow SS Lymphocytes/100 WBC (Bld) 37.0 % Invalid Interpretation Code 20.0 - 40.0 % AH Workflow SS MCH (RBC) [Entitic mass] 31.4 pg Invalid Interpretation Code 27.0 - 33.0 pg AH Workflow SS MCHC 34.7 G/dL Invalid Interpretation Code 32.0 - 36.0 G/dL AH Workflow SS MCV (RBC) [Entitic vol] 90.7 fL Invalid Interpretation Code 80.0 - 99.0 fL Workflow SS Monocyte distribution width Auto (Bld) [Entitic vol] Not Performed 2 *NA* (03/06/22 4:38 AM) Invalid Interpretation Code 0.00 - 20.00 Hematology S Comment on above: Result Comment: MDW testing performed only on adult ER patients between the ages of 18-89 years. Monocytes (Bld) [#/Vol] 0.6 103/mcL Invalid Interpretation Code 0.1 - 1.4 10^3/mcL Workflow SS Monocytes/100 WBC (Bld) 7.3 % Invalid Interpretation Code 2.0 - 13.0 % AH Workflow SS Neutrophils (Bld) [#/Vol] 4.6 103/mcL Invalid Interpretation Code 2.3 - 8.1 10^3/mcL Workflow SS Neutrophils/100 WBC (Bld) 54.8 % Invalid Interpretation Code 50.0 - 75.0 % AH Workflow SS Platelet mean volume (Bld) [Entitic vol] 9.4 fL Invalid Interpretation Code 6.6 - 10.5 fL AH Workflow SS Platelets (Bld) [#/Vol] 106 103/mcL Invalid Interpretation Code 150 - 450 10^3/mcL AH Workflow SS RBC (Bld) [#/Vol] 3.06 106/mcL Invalid Interpretation Code 4.10 - 5.30 10^6/mcL Workflow SS WBC 8.4 103/mcL Invalid Interpretation Code 4.5 - 10.8 10^3/mcL Workflow SS No Panel InformationOrdered By: Jocelyn Mix on 2022 Blood Glucose Interventions Administered agent to decrease blood sugar, Notify physician 4 (03/06/22 8:45 PM) [facility] LABORATORYOrdered By: Abigail marie on 03-05-2022 Drug Screen Urine Negative (03/05/22 10:57 AM) Invalid Interpretation Code Chemistry S Drug Screen Urine Interp Urine shows no evidence of drugs routinely screened. Invalid Interpretation Code Chemistry S Urine Drugs screened (DLRM): See Below (03/05/22 10:57 AM) Invalid Interpretation Code Chemistry S LABORATORYOrdered By: Whitney Ulrich on 03-05-2022 Group B Strep PCR Int Group B Streptococcus DNA detected by Real-Time Polymerase Chain Reaction (PCR). Organism viability cannot be determined since DNA may persist in the absent of viable organisms. As with all PCR based in vitro tests, extremely low levels of targe below the limit of detection of the assay may be detected, but results may not be reproducible. Sensitivity testing is not available with this method. Invalid Interpretation Code Auto Viro/Sero SS S. agalactiae DNA HUNG+probe Ql (Unsp spec) Positive 1 *ABN* (03/05/22 10:03 AM) Invalid Interpretation Code Negative AH Auto Viro/Sero SS Comment on above: Result Comment: [place] s [id number] LABORATORYOrdered By: Nancy del rio on 03-05-2022 ABO and Rh group Nom (Bld) Blood group O Rh(D) positive Invalid Interpretation Code BB Auto SS Blood group antibody screen Ql NEG (03/05/22 10:02 AM) Invalid Interpretation Code BB Auto SS LABORATORYOrdered By: [employer] on 03-05-2022 Basophils (Bld) [#/Vol] 0.0 103/mcL Invalid Interpretation Code 0.0 - 0.3 10^3/mcL Workflow SS Basophils/100 WBC (Bld) 0.2 % Invalid Interpretation Code 0.0 - 2.5 % AH Workflow SS Eosinophils (Bld) [#/Vol] 0.0 103/mcL Invalid Interpretation Code 0.0 - 0.7 10^3/mcL AH Workflow SS Eosinophils/100 WBC (Bld) 0.3 % Invalid Interpretation Code 0.0 - 6.0 % AH Workflow SS Erythrocyte distribution width (RBC) [Ratio] 14.3 % Invalid Interpretation Code 11.5 - 15.5 % AH Workflow SS Hematocrit (Bld) [Volume fraction] 37.0 % Invalid Interpretation Code 34.0 - 46.0 % AH Workflow SS Hemoglobin (Bld) [Mass/Vol] 12.4 G/dL Invalid Interpretation Code 12.0 - 16.0 G/dL AH Workflow SS Lymphocytes (Bld) [#/Vol] 2.8 103/mcL Invalid Interpretation Code 0.9 - 4.3 10^3/mcL Workflow SS Lymphocytes/100 WBC (Bld) 32.7 % Invalid Interpretation Code 20.0 - 40.0 % Workflow SS MCH (RBC) [Entitic mass] 30.6 pg Invalid Interpretation Code 27.0 - 33.0 pg AH Workflow SS MCHC 33.6 G/dL Invalid Interpretation Code 32.0 - 36.0 G/dL AH Workflow SS MCV (RBC) [Entitic vol] 90.8 fL Invalid Interpretation Code 80.0 - 99.0 fL Workflow SS Monocyte distribution width Auto (Bld) [Entitic vol] Not Performed 3 *NA* (03/05/22 10:02 AM) Invalid Interpretation Code 0.00 - 20.00 Hematology S Comment on above: Result Comment: MDW testing performed only on adult ER patients between the ages of 18-89 years. Monocytes (Bld) [#/Vol] 0.5 103/mcL Invalid Interpretation Code 0.1 - 1.4 10^3/mcL Workflow SS Monocytes/100 WBC (Bld) 6.2 % Invalid Interpretation Code 2.0 - 13.0 % Workflow SS Neutrophils (Bld) [#/Vol] 5.3 103/mcL Invalid Interpretation Code 2.3 - 8.1 10^3/mcL Workflow SS Neutrophils/100 WBC (Bld) 60.6 % Invalid Interpretation Code 50.0 - 75.0 % Workflow SS Platelet mean volume (Bld) [Entitic vol] 9.9 fL Invalid Interpretation Code 6.6 - 10.5 fL Workflow SS Platelets (Bld) [#/Vol] 127 103/mcL Invalid Interpretation Code 150 - 450 10^3/mcL AH Workflow SS RBC (Bld) [#/Vol] 4.07 106/mcL Invalid Interpretation Code 4.10 - 5.30 10^6/mcL AH Workflow SS WBC 8.7 103/mcL Invalid Interpretation Code 4.5 - 10.8 10^3/mcL AH Workflow SS LABORATORYOrdered By: Mando Willis on 03-05-2022 C. trachomatis DNA HUNG+probe Ql (Unsp spec) Negative (03/05/22 10:02 AM) Invalid Interpretation Code Negative Auto Viro/Sero SS C. trachomatis Interp C. trachomatis DNA not detected. Specimen is presumptive negative forC. trachomatis.A negative result does not preclude C. trachomatis infection becauseresults depend on adequate specimen collection, absence of inhibitors,and sufficient DNA to be detected. Invalid Interpretation Code See CT Interp N AH Auto Viro/Sero SS N. gonorrhoeae DNA HUNG+probe Ql (Unsp spec) Negative (03/05/22 10:02 AM) Invalid Interpretation Code Negative AH Auto Viro/Sero SS N. gonorrhoeae Interp N. gonorrhoeae DNA not detected. Specimen is presumptive negative forN. gonorrhoeae. A negative result does not preclude Neisseria gonorrhoeaeinfection because results depend on adequate specimen collection, absenceof inhibitors, and sufficient DNA to be detected. Invalid Interpretation Code See NG Interp N Auto Viro/Sero SS Reagin Ab RPR Ql (S) Non-Reactive (03/05/22 10:02 AM) Invalid Interpretation Code Non-Reactive Man Viro/Sero SS Laboratory - Specimen inform ationOrdered By: Mando Willis on 03-05-2022 Specimen source Nom (Unsp spec) Vaginal (03/05/22 10:02 AM) Invalid Interpretation Code Auto Viro/Sero SS LABORATORYOrdered By: Nancy senior on 01-18-2022 Glucose [Mass/Vol] 106 mg/dL Invalid Interpretation Code 70 - 110 mg/dL [facility] LABORATORYOrdered By: Nancy senior on 01-17-2022 Glucose [Mass/Vol] 155 mg/dL Invalid Interpretation Code 70 - 110 mg/dL [facility] Glucose [Mass/Vol] 195 mg/dL Invalid Interpretation Code 70 - 110 mg/dL [facility] LABORATORYOrdered By: Trisha Pena on 01-17-2022 ABO and Rh group Nom (Bld) Blood group O Rh(D) positive Invalid Interpretation Code BB Auto SS Blood group antibody screen Ql NEG (01/17/22 5:09 PM) Invalid Interpretation Code BB Auto SS LABORATORYOrdered By: SYSTEM SYSTEM on 01-17-2022 Basophils (Bld) [#/Vol] 0.0 103/mcL Invalid Interpretation Code 0.0 - 0.3 10^3/mcL Workflow SS Basophils/100 WBC (Bld) 0.3 % Invalid Interpretation Code 0.0 - 2.5 % Workflow SS Eosinophils (Bld) [#/Vol] 0.0 103/mcL Invalid Interpretation Code 0.0 - 0.7 10^3/mcL Workflow SS Eosinophils/100 WBC (Bld) 0.7 % Invalid Interpretation Code 0.0 - 6.0 % Workflow SS Erythrocyte distribution width (RBC) [Ratio] 13.7 % Invalid Interpretation Code 11.5 - 15.5 % Workflow SS Hematocrit (Bld) [Volume fraction] 35.8 % Invalid Interpretation Code 34.0 - 46.0 % Workflow SS Hemoglobin (Bld) [Mass/Vol] 11.9 G/dL Invalid Interpretation Code 12.0 - 16.0 G/dL AH Workflow SS Lymphocytes (Bld) [#/Vol] 2.2 103/mcL Invalid Interpretation Code 0.9 - 4.3 10^3/mcL Workflow SS Lymphocytes/100 WBC (Bld) 33.1 % Invalid Interpretation Code 20.0 - 40.0 % Workflow SS MCH (RBC) [Entitic mass] 30.5 pg Invalid Interpretation Code 27.0 - 33.0 pg Workflow SS MCHC 33.2 G/dL Invalid Interpretation Code 32.0 - 36.0 G/dL Workflow SS MCV (RBC) [Entitic vol] 91.7 fL Invalid Interpretation Code 80.0 - 99.0 fL Workflow SS Monocyte distribution width Auto (Bld) [Entitic vol] Not Performed 1 *NA* (01/17/22 5:09 PM) Invalid Interpretation Code 0.00 - 20.00 Hematology S Comment on above: Result Comment: MDW testing performed only on adult ER patients between the ages of 18-89 years. Monocytes (Bld) [#/Vol] 0.5 103/mcL Invalid Interpretation Code 0.1 - 1.4 10^3/mcL AH Workflow SS Monocytes/100 WBC (Bld) 7.8 % Invalid Interpretation Code 2.0 - 13.0 % AH Workflow SS Neutrophils (Bld) [#/Vol] 3.8 103/mcL Invalid Interpretation Code 2.3 - 8.1 10^3/mcL AH Workflow SS Neutrophils/100 WBC (Bld) 58.1 % Invalid Interpretation Code 50.0 - 75.0 % AH Workflow SS Platelet mean volume (Bld) [Entitic vol] 9.3 fL Invalid Interpretation Code 6.6 - 10.5 fL Workflow SS Platelets (Bld) [#/Vol] 165 103/mcL Invalid Interpretation Code 150 - 450 10^3/mcL Workflow SS RBC (Bld) [#/Vol] 3.90 106/mcL Invalid Interpretation Code 4.10 - 5.30 10^6/mcL AH Workflow SS WBC 6.6 103/mcL Invalid Interpretation Code 4.5 - 10.8 10^3/mcL AH Workflow SS Avril 12-27-2021 EMERGENCY PHYSICIAN REPORT This is a preliminary report only, as the practitioner review and authentication has not occurred. Normal [facility] ER PHYSICIAN ASSESSMENT RECORDS : FlexChartData Event Time: 12/27/2021 01:45 CMCA Status: Signed [facility] Lisa Mesa [[id number]] Mid-Level Chart (V2b) / 1995 Chart created at 12/27/2021 01:33 by [facility] [place] Chart closed at 12/27/2021 01:57 Entry in Emergency Department at 12/26/2021 22:16, departure at 12/27/2021 02:09 Patient Name: Lisa Mesa Record Number: [id number] Date: 12/27/2021 01:33 Entered Department at: 12/26/2021 22:16 Patient Seen at: 12/27/2021 00:38 Historian: Patient PCP: [facility] Chief Complaint:RIGHT CALF PAIN, 29 WEEKS /PT DENIES INJURY Nursing triage/initial assessment reviewed and confirmed and Initial Vital Signs reviewed. Temperature: 98.6 F (37 C). Pulse: 103. Respiratory Rate: 20. Blood-pressure: 129/78. Oxygen Saturation: 97%. History of Present Illness: 26-Year-old female presents for evaluation of right lower leg pain ongoing for the past several days. She denies any injury to the area. She locates the pain mostly on the lateral aspect of the anterior leg. She notes that the pain comes and goes and occasionally does radiate up into her thigh. She denies any redness or swelling in the area. She denies any additional [facility] PATIENT NAME: LISA MESA [address] [place] MEDICAL REC #: [id number] [place] [address] EMERGENCY DEPARTMENT REPORT EMERGENCY DEPARTMENT PHYSICIAN symptoms including fever, chills, chest pain, shortness of breath, nausea, vomiting. She is currently 29 weeks . She has no complaints regarding the itself. She sees [facility] for her . She has a history of gestational diabetes but no other chronic medical illnesses. Review of Systems. Musculo-Skeletal: Right leg pain All other systems reviewed and negative.. Past History, Medications, Allergies, Social History and Family History reviewed in nurses note. Medications: Reviewed RN Note. VITAMIN PO DAILY, INSULIN, FLEXERIL 10MG TABLET - PO PRN, PER PT - 12/26/21 [facility] Allergies: Reviewed RN Note Vicodin(Hives) Social History: Reviewed RN Note. Family History: Reviewed RN Note Physical Examination: General: Alert and Well Developed; Well-appearing. No distress. Sitting upright in the chair in the room. HEENT: Normocephalic/atraumat ic. Bilateral conjunctiva without injection or drainage. Mucous membranes are moist. . Neck: Supple Respiratory: No Resp Distress Cardio-Vascular: RRR Extremity: There is some tenderness to palpation of the right valdes mostly at the lateral aspect. This is mild. There is no associated erythema, edema, warmth. No overlying rash or lesion. There is no calf, popliteal, thigh tenderness. Dorsalis pedis pulse is 2+. Capillary refill is brisk. Sensation to light touch is intact throughout. Neurological: Alert, Oriented X3 and No Gross Weakness Skin: Warm and Dry Psychological: Mood/Affect Normal and Normal Memory/Judgment Medical Decision Making [facility] PATIENT NAME: LISA MESA [address] [place] MEDICAL REC #: [id number] [place] [id number] EMERGENCY DEPARTMENT REPORT EMERGENCY DEPARTMENT PHYSICIAN As above, 26-year-old female presented for evaluation of right lower leg pain for the past few days. No injury. She states that the pain is intermittent and sometimes radiates up into her right leg. Denies any swelling, redness, injury. She denies any chest pain or shortness of breath. She is 29 weeks . She has no complaints regarding the . She is a history of gestational diabetes but no other chronic medical illnesses. She was minimally tachycardic initially but no other chronic medical illnesses. Her exam was benign. She did have some tenderness of the anterior lateral portion of the right lower leg. There was no associated erythema, edema, warmth, or anything to suggest infectious process. There was no tenderness over the posterior portion of the leg. Leg was neurovascularly intact. Given the location of the pain, intermittent quality, and lack of any changes to the leg externally, my suspicion for DVT is low. Regardless, I think it is important that she have a duplex to rule out DVT given that she has increased risk due to her . Unfortunately, the patient has to work for the next several days and is unable to be scheduled for a duplex outpatient. She is unwilling/unable to miss work for it. 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 I am more (more content not included)... Normal [facility] LABORATORYOrdered By: Whitney Chand on 05-18-2021 ADMITTED TO INTENSIVE CARE UNIT FOR CONDITION OF INTEREST:FIND:PT:^PA TIENT:ORD: No (05/18/21 12:17 PM) Invalid Interpretation Code AO Auto Urine SS EMPLOYED IN A HEALTHCARE SETTING:FIND:PT:^PAT IENT:ORD: No (05/18/21 12:17 PM) Invalid Interpretation Code AO Auto Urine SS FIRST TEST FOR CONDITION OF INTEREST:FIND:PT:^PA TIENT:ORD: Yes (05/18/21 12:17 PM) Invalid Interpretation Code AO Auto Urine SS HAS SYMPTOMS RELATED TO CONDITION OF INTEREST:FIND:PT:^PA TIENT:ORD: Yes (05/18/21 12:17 PM) Invalid Interpretation Code AO Auto Urine SS Illness or injury onset date and time [id number] Invalid Interpretation Code AO Auto Urine SS Patient was hospitalized because of this condition No (05/18/21 12:17 PM) Invalid Interpretation Code AO Auto Urine SS status Not (05/18/21 12:17 PM) Invalid Interpretation Code AO Auto Urine SS RESIDES IN A CONGREGATE CARE SETTING:FIND:PT:^PAT IENT:ORD: No (05/18/21 12:17 PM) Invalid Interpretation Code AO Auto Urine SS SARS-CoV-2 (COVID-19) RNA HUNG+probe Ql (Resp) Positive *ABN* (05/18/21 12:17 PM) Invalid Interpretation Code Negative AO Auto Urine SS SARS-CoV-2 (COVID-19) RNA HUNG+probe Ql (Unsp spec) Positive results are indicative of the presence of SARS-CoV-2 RNA; clinical correlation with patient history and other diagnostic information is necessary to determine patient infection status. Positive results do not rule out bacterial infection or co-infection with other viruses. The agent detected may not be the definite cause of disease. Laboratories within the [place] and its territories are required to report all positive results to the appropriate public health authorities.Detection of analyte target(s) does not imply that the corresponding virus(es) are infectious or are the causative agents for clinical symptoms.There is a risk of false positive values resulting from cross-contamination by target organisms, their nucleic acids or amplified product, or from non-specific signals in the assay.MAYDA SARS-CoV-2 Assay is a Real-Time reverse-transcriptase polymerase chain reaction (RT-PCR) based qualitative in vitro diagnostic test intended for the qualitative detection of nucleic acid from the SARS-CoV-2 in nasopharyngeal swab specimens collected from individuals suspected of COVID-19 by their healthcare provider. Testing is limited to laboratories certified under the Clinical Laboratory Improvement Amendments of 1988 (CLIA), 42 U.S.C. 263a, to perform moderate and high complexity tests. Invalid Interpretation Code AO Auto Urine SS COVID and Resp PCR Panelon 0 03-16-2021 SARS-CoV-2 (COVID-19) RNA HUNG+probe Ql (Unsp spec) COVID and Resp PCR Panel --> Status: F NEGATIVE: No targets were detected by the efw-suhl Upper Respiratory Pathogens PCR Panel. _ Expected Result: Not Detected The [employer] Upper Respiratory Pathogens PCR Panel can detect the following targets: SARS-CoV-2, Adenovirus, Coronavirus 229E, Coronavirus HKU1, Coronavirus NL63, Coronavirus OC43, Human Metapneumovirus, Human Rhinovirus/Enterovirus , Influenza A, Influenza B, Parainfluenza Virus 1, Parainfluenza Virus 2, Parainfluenza Virus 3, Parainfluenza Virus 4, Respiratory Syncytial Virus, Bordetella pertussis, Bordetella parapertussis, Chlamydia pneumoniae, Mycoplasma pneumoniae. Negative results do not preclude SARS-CoV-2 infection and should not be used as the sole basis for treatment or other patient management decisions. This assay was developed by [employer] and distributed under an Emergency Use Authorization (EUA) granted by the FDA for the qualitative detection of SARS-CoV-2 nucleic acid. Provider and patient fact sheets can be found at https://www.fda.gov/me nick/918912/download and https://www.fda.gov/me nick/050446/download. Respiratory Pathogens PCR Panel. _ Expected Result: Not Detected The efw-suhl Upper Respiratory Pathogens PCR Panel can detect the following targets: SARS-CoV-2, Adenovirus, Coronavirus 229E, Coronavirus HKU1, Coronavirus NL63, Coronavirus OC43, Human Metapneumovirus, Human Rhinovirus/Enterovirus , Influenza A, Influenza B, Parainfluenza Virus 1, Parainfluenza Virus 2, Parainfluenza Virus 3, Parainfluenza Virus 4, Respiratory Syncytial Virus, Bordetella pertussis, Bordetella parapertussis, Chlamydia pneumoniae, Mycoplasma pneumoniae. Negative results do not preclude SARS-CoV-2 infection and should not be used as the sole basis for treatment or other patient management decisions. This assay was developed by [employer] and distributed under an Emergency Use Authorization (EUA) granted by the FDA for the qualitative detection of SARS-CoV-2 nucleic acid. Provider and patient fact sheets can be found at https://www.[facility].gov/me nick/749844/download and https://www.fda.gov/ks nick/326178/download. [facility] Comment on above: Performed By: #### B FRP2 #### [facility] [email or web address] [place] [address] [place] [address] Chlamydia and GC PCR Panelon 03-16-2021 Chlamydia and GC PCR Panel Chlamydia trachomatis PCR --> Status: F NOT Detected Chlamydia trachomatis Nucleic Acid NOT Detected by DNA Amplification using the Cepheid System. Culture is the only recommended test in medical-legal cases such as suspected child abuse or molestation. Chlamydia trachomatis Nucleic Acid NOT Detected by DNA Amplification using the Cepheid System. Culture is the only recommended test in medical-legal cases such as suspected child abuse or molestation. Neisseria gonorrhoeae PCR --> Status: F NOT Detected Neisseria gonorrhoeae Nucleic Acid NOT Detected by DNA Amplification using the Cepheid System. Culture is the only recommended test in medical-legal cases such as suspected child abuse or molestation. Neisseria gonorrhoeae Nucleic Acid NOT Detected by DNA Amplification using the Cepheid System. Culture is the only recommended test in medical-legal cases such as suspected child abuse or molestation. [facility] Comment on above: Performed By: #### C TNGP #### [facility] [email or web address] [facility] [address] [place] [address] CR Chest Portableon 03-15-20 21 CR Chest Portable Patient Name: LISA MESA Diagnostic Radiology ACCESSION EXAM DATE/TIME PROCEDURE ORDERING PROVIDER [id number] 03/15/2021 22:23 EDT CR Chest Portable [facility] ENGLISH CPT code 91698 Reason For Exam (CR Chest Portable) cough Report CHEST PORTABLE CLINICAL INDICATION: cough TECHNIQUE: Portable chest x-ray(s). COMPARISON: None. FINDINGS: Cardiac and mediastinal silhouette within normal limits. Lungs are grossly clear. No significant vascular congestion. No apparent pleural effusion or pneumothorax. Bony thorax grossly unremarkable. IMPRESSION: 1. No acute consolidation. Report Dictated on Workstation: DUTCH Final Dictated: 03/15/2021 10:26 pm Dictating Physician: MD MANRIQUEZ WENDELL Signed Date and Time: 03/15/2021 10:26 pm Signed by: MD MANRIQUEZ WENDELL Transcribed Date and Time: 03/15/2021 10:26 [facility] ED Provider Noteon ED Provider Note I was not involved i n this patient's care TESS Jeffers 03/15/21 2236 [facility] ED Provider Note [facility] EMERGENCY DEPT EMERGENCY DEPARTMENT ENCOUNTER Pt Name: Lisa Mesa Birthdate 1995 Date of evaluation: 03/15/2021 Provider: YANNICK Saleem CNP Due to concern for COVID-19 in the healthcare setting I wore protective eyewear, N95 respirator and surgical mask for the entirety of the encounter. CHIEF COMPLAINT Chief Complaint Patient presents with ? Cough patient c/o cough and trouble catching breath. cough is non-productive. chills. had negative covid 2 days ago. HISTORY OF PRESENT ILLNESS (Location/Symptom, Timing/Onset,Context/S etting, Quality, Duration, Modifying Factors, Severity) Note limiting factors. HPI Lisa Mesa is a 26 y.o. female who presents to the emergency department with two separate concerns. Patient states she is coughing and is concerned for covid-19. Also complains of vaginal discharge. Is concerned for a STD. Would like testing. Nursing Notes were reviewed. REVIEW OFSYSTEMS (2+ for level 4; 10+ level 5) Review of Systems Constitutional: Negative. Negative for chills, diaphoresis and fever. HENT: Negative. Eyes: Negative. Respiratory: Positive for cough. Negative for chest tightness and shortness of breath. Cardiovascular: Negative. Negative for chest pain. Gastrointestinal: Negative. Negative for abdominal pain, constipation, diarrhea and vomiting. Genitourinary: Positive for vaginal discharge. Negative for dysuria. Musculoskeletal: Negative. Skin: Negative. Neurological: Negative. Negative for dizziness and light-headedness. Psychiatric/Behavioral : Negative. All other systems reviewed and are negative except as noted in history of present illness PAST MEDICAL HISTORY History reviewed. No pertinent past medical history. SURGICAL HISTORY History reviewed. No pertinent surgical history. CURRENT MEDICATIONS There are no discharge medications for this patient. ALLERGIES Patient has no known allergies. FAMILY HISTORY History reviewed. No pertinent family history. SOCIAL HISTORY Social History Socioeconomic History ? Marital status: Single Spouse name: None ? Number of children: None ? Years of education: None ? Highest education level: None Occupational History ? None Tobacco Use ? Smoking status: Never Smoker ? Smokeless tobacco: Never Used Substance and Sexual Activity ? Alcohol use: Yes ? Drug use: No ? Sexual activity: Yes Partners: Male Other Topics Concern ? None Social History Narrative ? None Social Determinants of Health Financial Resource Strain: ? Difficulty of Paying Living Expenses: Food Insecurity: ? Worried About Running Out of Food in the Last Year: ? Ran Out of Food in the Last Year: Transportation Needs: ? Lack of Transportation (Medical): ? Lack of Transportation (Non-Medical): Physical Activity: ? Days of Exercise per Week: ? Minutes of Exercise per Session: Stress: ? Feeling of Stress : Social Connections: ? Frequency of Communication with Friends and Family: ? Frequency of Social Gatherings with Friends and Family: ? Attends [employer] Services: ? Active Member of Clubs or Organizations: ? Attends Club or Organization Meetings: ? Marital Status: Intimate Partner Violence: ? Fear of Current or Ex-Partner: ? Emotionally Abused: ? Physically Abused: ? Sexually Abused: SCREENINGS PHYSICAL EXAM (up to 7 for level 4, 8 or more for level 5) ED Triage Vitals BP Temp Temp Source Pulse Resp SpO2 Height Weight 08/17/21 2021 08/17/21 2021 [id number]/15/21202003/15/[id number]/15/[id number]/15/[id number]/15/212019 125/80 97.8 ?F (36.6 ?C) Temporal 97 18 98 % 5' 10 (1.778 m) 180 lb (81.6 kg) Physical Exam Vitals and nursing note reviewed. Exam conducted with a wood grinder operator present. Constitutional: General: She is not in acute distress. Appearance: She is well-developed. She is not ill-appearing, toxic-appearing or diaphoretic. HENT: Head: Normocephalic and atraumatic. Jaw: No trismus. Mouth/Throat: Mouth: Mucous membranes are not dry. No oral lesions. Pharynx: No oropharyngeal exudate, posterior oropharyngeal erythema or uvula swelling. Eyes: General: No scleral icterus. Right eye: No discharge. Left eye: No discharge. Conjunctiva/sclera: Conjunctivae normal. Pupils: Pupils are equal, round, and reactive to light. Neck: Thyroid: No thyromegaly. Vascular: No JVD. Trachea: No tracheal tenderness or tracheal deviation. Cardiovascular: Rate and Rhythm: Normal rate and regular rhythm. Pulses: No decreased pulses. Heart sounds: Normal heart sounds, S1 normal and S2 normal. Heart sounds not distant. No murmur heard. No friction rub. No gallop. No S3 or S4 sounds. Pulmonary: Effort: Pulmonary effort is normal. No accessory muscle usage or respiratory distress. Breath sounds: Normal breath sounds. No stridor. No decreased breath sounds, wheezing, rhonchi or rales. Chest: Chest wall: No t (more content not included)... Normal [facility] [email or web address] [facility] XR CHEST PORTABLEOrdered By: Carlitos English on 03-15-2021 Patient Name: LISA MESA Diagnostic Radiology ACCESSION EXAM DATE/TIME PROCEDURE ORDERING PROVIDER [id number] 03/15/2021 22:23 EDT CR Chest Portable [facility] ENGLISH CPT code 43036 Reason For Exam (CR Chest Portable) cough Report CHEST PORTABLE CLINICAL INDICATION: cough TECHNIQUE: Portable chest x-ray(s). COMPARISON: None. FINDINGS: Cardiac and mediastinal silhouette within normal limits. Lungs are grossly clear. No significant vascular congestion. No apparent pleural effusion or pneumothorax. Bony thorax grossly unremarkable. IMPRESSION: 1. No acute consolidation. Report Dictated on Workstation: DUTCH --- Final --- Dictated: 03/15/2021 10:26 pm Dictating Physician: MD MANRIQUEZ WENDELL Signed Date and Time: 03/15/2021 10:26 pm Signed by: MD MANRIQUEZ WENDELL Transcribed Date and Time: 03/15/2021 10:26 [facility] Work Phone: [facility] Incoming Radiology Results From [facility] - 03/15/2021 10:28 PM EDT Patient Name: LISA MESA Diagnostic Radiology ACCESSION EXAM DATE/TIME PROCEDURE ORDERING PROVIDER [id number] 03/15/2021 22:23 EDT CR Chest Portable [facility] ENGLISH CPT code 09838 Reason For Exam (CR Chest Portable) cough Report CHEST PORTABLE CLINICAL INDICATION: cough TECHNIQUE: Portable chest x-ray(s). COMPARISON: None. FINDINGS: Cardiac and mediastinal silhouette within normal limits. Lungs are grossly clear. No significant vascular congestion. No apparent pleural effusion or pneumothorax. Bony thorax grossly unremarkable. IMPRESSION: 1. No acute consolidation. Report Dictated on Workstation: DUTCH --- Final --- Dictated: 03/15/2021 10:26 pm Dictating Physician: MD MANRIQUEZ WENDELL Signed Date and Time: 03/15/2021 10:26 pm Signed by: MD MANRIQUEZ WENDELL Transcribed Date and Time: 03/15/2021 10:26 [facility] Work Phone: [facility] Work Phone: Basic Metabolic Panelon 08-0 Calcium [Mass/Vol] 9.5 mg/dL Normal 8.4-10.4 [facility] Comment on above: Performed By: #### H EMDF, TROPN, BMP3, QWAL2 #### [address] [address] Anion gap [Moles/Vol] 6 mmol/L Normal 3-13 [facility] Comment on above: Performed By: #### H EMDF, TROPN, BMP3, QWAL2 #### [place] [address] [place], [place] CO2 [Moles/Vol] 23 mmol/L Normal 22-30 [facility] Comment on above: Performed By: #### H EMDF, TROPN, BMP3, QWAL2 #### [place] [address] [place], [place] Creatinine [Mass/Vol] 0.72 mg/dL Normal 0.52-1.25 [facility] Comment on above: Performed By: #### H EMDF, TROPN, BMP3, QWAL2 #### [address] eGFR OTHER > 90.0 Normal >60 [facility] Comment on above: Result Comment: KDIG O guidelines provide the following GFR categories: Stage GFR(ml/min/1.73 m2) Terms G1 >=90 Normal or high G2 60-89 Mildly decreased* G3a 45-59 Mildly to moderately decreased G3b 30-44 Moderately to severely decreased G4 15-29 Severely decreased G5 <15 Kidney failure *Relative to young adult level. In the absence of evidence of kidney damage, neither GFR category G1 nor G2 fulfill the criteria for CKD. The CKD-EPI equation is validated in individuals 18 years of age and older. Currently the best equation for estimating glomerular filtration rate (GFR) from serum creatinine in children is the Bedside Ramsey equation. It is less accurate in patients with extremes of muscle mass, restriction of dietary protein, ingestion of creatine, extra-renal metabolism of creatinine, or treatment with medications that affect renal tubular creatinine secretion. Performed By: #### H EMDF, TROPN, BMP3, QWAL2 #### [place] [address] [place], [place] GFR/1.73 sq M.predicted among blacks MDRD (S/P/Bld) [Vol rate/Area] mL/min/{1.73_m2} Normal >60 [facility] Comment on above: Performed By: #### H EMDF, TROPN, BMP3, QWAL2 #### [place] [address] [place] [address] Glucose [Mass/Vol] 145 mg/dL High 70-100 [facility] Comment on above: Performed By: #### H EMDF, TROPN, BMP3, QWAL2 #### [facility] [address] [place] [address] Urea nitrogen [Mass/Vol] 9 mg/dL Normal 7-20 [facility] Comment on above: Performed By: #### H EMDF, TROPN, BMP3, QWAL2 #### [facility] [place] [address] Chloride [Moles/Vol] 108 mmol/L High 98-107 [facility] Comment on above: Performed By: #### H EMDF, TROPN, BMP3, QWAL2 #### [place] [address] [place] [address] Potassium [Moles/Vol] 3.7 mmol/L Normal 3.5-5.1 [facility] Comment on above: Performed By: #### H EMDF, TROPN, BMP3, QWAL2 #### [facility] [place] [address] Sodium [Moles/Vol] 138 mmol/L Normal 135-145 [facility] Comment on above: Performed By: #### H EMDF, TROPN, BMP3, QWAL2 #### [facility] [place] [address] Basic Metabolic PanelOrdered By: Sherin Dawkins on 03-07-2021 Anion gap [Moles/Vol] 6 mmol/L 3 - 13 mmol/L [facility] Work Phone: Calcium [Mass/Vol] 9.5 mg/dL 8.4 - 10. 4 mg/dL [facility] Work Phone: Chloride [Moles/Vol] 108 mmol/L High 98 - 10 7 mmol/L [facility] Work Phone: CO2 [Moles/Vol] 23 mmol/L 22 - 30 mmol/L [facility] Work Phone: Creatinine [Mass/Vol] 0.72 mg/dL 0.52 - 1.25 mg/dL [email or web address] Work Phone: EGFR IF NonAfrican [place] >90.0 >60 mL/min [email or web address] Work Phone: Comment on above: KDIGO guidelines pro vide the following GFR categories: Stage GFR(ml/min/1.73 m2) Terms G1 >=90 Normal or high G2 60-89 Mildly decreased* G3a 45-59 Mildly to moderately decreased G3b 30-44 Moderately to severely decreased G4 15-29 Severely decreased G5 <15 Kidney failure *Relative to young adult level. In the absence of evidence of kidney damage, neither GFR category G1 nor G2 fulfill the criteria for CKD. The CKD-EPI equation is validated in individuals 18 years of age and older. Currently the best equation for estimating glomerular filtration rate (GFR) from serum creatinine in children is the Bedside Ramsey equation. It is less accurate in patients with extremes of muscle mass, restriction of dietary protein, ingestion of creatine, extra-renal metabolism of creatinine, or treatment with medications that affect renal tubular creatinine secretion. GFR/1.73 sq M.predicted among blacks MDRD (S/P/Bld) [Vol rate/Area] mL/min/{1.73_m2} >60 mL/min [email or web address] Work Phone: Glucose [Mass/Vol] 145 mg/dL High 70 - 100 mg/dL [employer] Phone: Interpretation and review of laboratory results Abnormal [email or web address] Work Phone: Potassium [Moles/Vol] 3.7 mmol/L 3.5 - 5.1 mmol/L [email or web address] Work Phone: Sodium [Moles/Vol] 138 mmol/L 135 - 145 mmol/L [email or web address] Work Phone: Urea nitrogen (BldV) [Mass/Vol] 9 mg/dL 7 - 20 mg/dL [email or web address] Work Phone: Test Performed by [employer], [address] [place] [id number] [email or web address] Work Phone: [email or web address] Work Phone: Complete Urinalysison 2020 Amorphous Crystal Few Abnormal Negative [facility] Comment on above: Result Comment: . Performed By: #### C UA2 #### [facility] [address] [place], [place] Appearance (U) Turbid Abnormal Clear [facility] Comment on above: Result Comment: . Performed By: #### C UA2 #### [facility] [address] [place], [place] Bacteria Moderate Abnormal Negative [facility] Comment on above: Result Comment: . Performed By: #### C UA2 #### [facility] [address], [place] Bilirubin,Urine Negative Normal Negative [facility] Comment on above: Result Comment: . Performed By: #### C UA2 #### [place] [address] [address], [place] Cast, Hyaline Negative Normal Negative [facility] Comment on above: Result Comment: . Performed By: #### C UA2 #### [facility] [address], [place] Color (U) Yellow Normal Lt. Yellow [facility] Comment on above: Result Comment: . Performed By: #### C UA2 #### [facility] [address], [place] Glucose Ql (U) Normal Normal Normal (<70) [facility] Comment on above: Result Comment: . Performed By: #### C UA2 #### [facility] [address] [place], [place] Ketone,Urine 10 mg/dL Abnormal Negative [facility] Comment on above: Result Comment: . Performed By: #### C UA2 #### [facility] [address] [place], [place] Leukocytes,Urine 500 Robin/uL Abnormal Negative [facility] Comment on above: Result Comment: . Performed By: #### C UA2 #### [facility] [address] [place] Mucous Threads Many Abnormal Negative [facility] Comment on above: Result Comment: . Performed By: #### C UA2 #### [facility] [address], [place] Nitrites,Urine Negative Normal Negative [facility] Comment on above: Result Comment: . Performed By: #### C UA2 #### [facility] [address], [place] Occult Blood,Urine Negative Normal Negative [facility] Comment on above: Result Comment: . Performed By: #### C UA2 #### [place] [address] [address], [place] pH,Urine 6.0 Normal 5.0-8.0 [facility] Comment on above: Result Comment: . Performed By: #### C UA2 #### [place] [address] [address], [place] Protein (U) [Mass/Vol] 20 mg/dL Abnormal Negative [facility] Comment on above: Result Comment: . Performed By: #### C UA2 #### [place] [address] [address], [place] RBC, Urine 26 - 50 Abnormal 0-2 [facility] Comment on above: Result Comment: . Performed By: #### C UA2 #### [place] [address] [address], [place] Specific [place],Urine 1.015 Normal 1.005 - 1.030 [facility] Comment on above: Result Comment: . Performed By: #### C UA2 #### [place] [address] [address], [place] Squamous Epithelial 26 - 50 Abnormal 3-5 [facility] Comment on above: Result Comment: . Performed By: #### C UA2 #### [place] [address] [address], [place] Urobilinogen,Urine 2 mg/dL Abnormal Normal (0-1) [facility] Comment on above: Result Comment: . Performed By: #### C UA2 #### [place] [address] [address], [place] WBC, Urine 26 - 50 Abnormal 0-5 [facility] Comment on above: Result Comment: . Performed By: #### C UA2 #### [address] [address] ED Provider Noteon ED Provider Note [facility] EMERGENCY DEPT EMERGENCY DEPARTMENT ENCOUNTER Pt Name: Lisa Mesa Birthdate 1995 Date of evaluation: 03/07/2021 Provider: YANNICK Brewster CNP Patient was seen in conjunction with Dr. Kincaid whom also independently obtained history and evaluated the patient Due to concern for COVID-19 in the healthcare setting I wore protective eyewear, N95 respirator and surgical mask for the entirety of the encounter. CHIEF COMPLAINT Chief Complaint Patient presents with ? Panic Attack Pt states she took ecstasy pill 1 hour ago and is now panicking. HR elevated in 140s, pt states shes never taken this drug before. EKG called to triage. HISTORY OF PRESENT ILLNESS (Location/Symptom, Timing/Onset,Context/S etting, Quality, Duration, Modifying Factors, Severity) Note limiting factors. HPI Lisa Mesa is a 26 y.o. female who presents to the emergency department with complaints of feeling very anxious. She states that yesterday was her birthday and she was out celebrating with her friends. She tells me she took an ecstasy pill about an hour ago. Shortly later she felt very lightheaded and noted that she was having a racing heart. She states she just feels overall funny. She denies any abdominal pain chest pain shortness of breath nausea vomiting constipation diarrhea. She does not believe she is . She denies any alcohol or other illicit substance abuse. She is not suicidal or homicidal. Nursing Notes were reviewed. REVIEW OFSYSTEMS (2+ for level 4; 10+ level 5) Review of Systems All other systems reviewed and are negative except as noted in history of present illness PAST MEDICAL HISTORY No past medical history on file. SURGICAL HISTORY No past surgical history on file. CURRENT MEDICATIONS Previous Medications No medications on file ALLERGIES Patient has no known allergies. FAMILY HISTORY No family history on file. SOCIAL HISTORY Social History Socioeconomic History ? Marital status: Single Spouse name: Not on file ? Number of children: Not on file ? Years of education: Not on file ? Highest education level: Not on file Occupational History ? Not on file Tobacco Use ? Smoking status: Never Smoker ? Smokeless tobacco: Never Used Substance and Sexual Activity ? Alcohol use: Yes ? Drug use: No ? Sexual activity: Yes Partners: Male Other Topics Concern ? Not on file Social History Narrative ? Not on file Social Determinants of Health Financial Resource Strain: ? Difficulty of Paying Living Expenses: Food Insecurity: ? Worried About Running Out of Food in the Last Year: ? Ran Out of Food in the Last Year: Transportation Needs: ? Lack of Transportation (Medical): ? Lack of Transportation (Non-Medical): Physical Activity: ? Days of Exercise per Week: ? Minutes of Exercise per Session: Stress: ? Feeling of Stress : Social Connections: ? Frequency of Communication with Friends and Family: ? Frequency of Social Gatherings with Friends and Family: ? Attends [employer] Services: ? Active Member of Clubs or Organizations: ? Attends Club or Organization Meetings: ? Marital Status: Intimate Partner Violence: ? Fear of Current or Ex-Partner: ? Emotionally Abused: ? Physically Abused: ? Sexually Abused: SCREENINGS PHYSICAL EXAM (up to 7 for level 4, 8 or more for level 5) ED Triage Vitals [03/07/21 0027] BP Temp Temp Source Pulse Resp SpO2 Height Weight (!) 150/110 98.4 ?F (36.9 ?C) Temporal 120 22 100 % -- -- Physical Exam Vitals and nursing note reviewed. Constitutional: General: She is not in acute distress. Appearance: She is well-developed. She is not toxic-appearing or diaphoretic. HENT: Head: Normocephalic and atraumatic. Eyes: General: Right eye: No discharge. Left eye: No discharge. Conjunctiva/sclera: Conjunctivae normal. Cardiovascular: Rate and Rhythm: Tachycardia present. Pulses: Normal pulses. Heart sounds: Normal heart sounds. Pulmonary: Effort: Pulmonary effort is normal. No respiratory distress. Breath sounds: Normal breath sounds. Abdominal: General: Abdomen is flat. Bowel sounds are normal. There is no distension. Palpations: Abdomen is soft. Tenderness: There is no abdominal tenderness. There is no guarding or rebound. Musculoskeletal: General: No deformity. Normal range of motion. Cervical back: Normal range of motion and neck supple. Skin: General: Skin is warm and dry. Neurological: Mental Status: She is alert and oriented to person, place, and time. GCS: GCS eye subscore is 4. GCS verbal subscore is 5. GCS motor subscore is 6. Psychiatric: Behavior: Behavior normal. Thought Content: Thought content normal. Thought content is not paranoid. Thought content does not include homicidal or suicidal ideation. Judgment: Judgment normal. DIAGNOSTIC RESULTS EKG (Per Emergency Physician): All EKG's areinterpreted by the Emergency (more content not included)... Normal [facility] [employer] HCG Qualitative, SerumOrdere d By: Sherin Dawkins on 03-07-2021 hCG Qual Negative [email or web address] Work Phone: Comment on above: Reference Range: NEG ATIVE Effective 10/10/2019, the reference interval for the qualitative test has been updated. This test detects hCG at concentrations of 10 mIU/L or greater in serum. Test Performed by [employer], [address] [place] [id number] [email or web address] Work Phone: [email or web address] Work Phone: Hemogram (CBC) w/Auto DiffOr dered By: Sherin Dawkins on 03-07-2021 Absolute Baso # 0.0 10*3/uL 0.0 - 0.2 10*3/uL [email or web address] Work Phone: Absolute Neut # 4.4 10*3/uL 1.8 - 7.0 10*3/uL [email or web address] Work Phone: Basophils/100 WBC (Bld) 0.5 % 0.0 - 2.0 % [email or web address] Work Phone: Eosinophils (Bld) [#/Vol] 0.0 10*3/uL 0.0 - 0.5 10*3/uL [email or web address] Work Phone: Eosinophils/100 WBC (Bld) 0.5 % Low 1.0 - 6.0 % [email or web address] Work Phone: Granulocytes/100 WBC (Bld) 56.3 % 40.0 - 80.0 % [email or web address] Work Phone: Hematocrit (Bld) [Volume fraction] 40.6 % 35.0 - 47.0 % [email or web address] Work Phone: Hemoglobin.gastroint estinal spec 1 Ql (Stl) 13.6 g/dL 11.7 - 16.0 g/dL [email or web address] Work Phone: Interpretation and review of laboratory results Abnormal [email or web address] Work Phone: Lymphocytes (Bld) [#/Vol] 2.9 10*3/uL 1.0 - 4.3 10*3/uL [email or web address] Work Phone: Lymphocytes/100 WBC (Bld) 36.8 % 20.0 - 40.0 % [email or web address] Work Phone: MCH (RBC) [Entitic mass] 30.0 pg 26.0 - 34.0 pg [employer] Work Phone: MCHC (RBC) [Mass/Vol] 33.6 % 32.0 - 36.0 % [email or web address] Work Phone: MCV (RBC) [Entitic vol] 89.4 fL 79.0 - 98.0 fL [email or web address] Work Phone: Monocytes (Bld) [#/Vol] 0.5 10*3/uL 0.0 - 0.8 10*3/uL [email or web address] Work Phone: Monocytes/100 WBC (Bld) 5.9 % 2.0 - 10.0 % [email or web address] Work Phone: Platelet distribution width (Bld) [Ratio] 14.3 % 11.5 - 14.5 % [email or web address] Work Phone: Platelet mean volume (Bld) [Entitic vol] 10.2 fL 7.4 - 10.4 fL [email or web address] Work Phone: Platelets (Bld) [#/Vol] 183 10*3/uL 140 - 440 10*3/uL [email or web address] Work Phone: RBC (Bld) [#/Vol] 4.54 10*6/uL 3.80 - 5.2 0 10*6/uL [email or web address] Work Phone: WBC (Bld) [#/Vol] 7.8 10*3/uL 3.6 - 10.7 10*3/uL [email or web address] Work Phone: Test Performed by [facility] [place] [address] [facility] Work Phone: [facility] Work Phone: Hemogram w/ Autodiffon 03-07 Abs Baso Cnt 0.0 10*3/uL Normal 0.0-0.2 [facility] Comment on above: Performed By: #### H EMDF, TROPN, BMP3, QWAL2 #### [address] [address] Abs Neutrophile Cnt 4.4 10*3/uL Normal 1.8-7.0 [facility] Comment on above: Performed By: #### H EMDF, TROPN, BMP3, QWAL2 #### [address] [address] Basophils/100 WBC (Bld) 0.5 % Normal 0.0-2.0 [facility] Comment on above: Performed By: #### H EMDF, TROPN, BMP3, QWAL2 #### [address] [address] Eosinophils (Bld) [#/Vol] 0.0 10*3/uL Normal 0.0-0.5 [facility] Comment on above: Performed By: #### H EMDF, TROPN, BMP3, QWAL2 #### [address] [address] Eosinophils/100 WBC (Bld) 0.5 % Low 1.0-6.0 [facility] Comment on above: Performed By: #### H EMDF, TROPN, BMP3, QWAL2 #### [address] [address] Erythrocyte distribution width (RBC) [Ratio] 14.3 % Normal 11.5-14.5 [facility] Comment on above: Performed By: #### H EMDF, TROPN, BMP3, QWAL2 #### [address] [address] Granulocytes/100 WBC (Bld) 56.3 % Normal 40.0-80.0 [facility] Comment on above: Performed By: #### H EMDF, TROPN, BMP3, QWAL2 #### [place] [address] [address], [place] Hematocrit (Bld) [Volume fraction] 40.6 % Normal 35.0-47.0 [facility] Comment on above: Performed By: #### H EMDF, TROPN, BMP3, QWAL2 #### [place] [address] [address] [place], [place] Hemoglobin (Bld) [Mass/Vol] 13.6 g/dL Normal 11.7-16.0 [facility] Comment on above: Performed By: #### H EMDF, TROPN, BMP3, QWAL2 #### [address] Lymphocytes (Bld) [#/Vol] 2.9 10*3/uL Normal 1.0-4.3 [facility] Comment on above: Performed By: #### H EMDF, TROPN, BMP3, QWAL2 #### [place] [address] [place], [place] Lymphocytes/100 WBC (Bld) 36.8 % Normal 20.0-40.0 [facility] Comment on above: Performed By: #### H EMDF, TROPN, BMP3, QWAL2 #### [address] MCH (RBC) [Entitic mass] 30.0 pg Normal 26.0-34.0 [facility] Comment on above: Performed By: #### H EMDF, TROPN, BMP3, QWAL2 #### [place] [address] [address] [place] MCHC 33.6 % Normal 32.0-36.0 [facility] Comment on above: Performed By: #### H EMDF, TROPN, BMP3, QWAL2 #### [address] MCV (RBC) [Entitic vol] 89.4 fL Normal 79.0-98.0 [facility] Comment on above: Performed By: #### H EMDF, TROPN, BMP3, QWAL2 #### [place] [address] [address] [place], [place] Monocytes (Bld) [#/Vol] 0.5 10*3/uL Normal 0.0-0.8 [facility] Comment on above: Performed By: #### H EMDF, TROPN, BMP3, QWAL2 #### [place] [address] [address] [place], [place] Monocytes/100 WBC (Bld) 5.9 % Normal 2.0-10.0 [facility] Comment on above: Performed By: #### H EMDF, TROPN, BMP3, QWAL2 #### [place] [address] [address] [place], [place] Platelet mean volume (Bld) [Entitic vol] 10.2 fL Normal 7.4-10.4 [facility] Comment on above: Performed By: #### H EMDF, TROPN, BMP3, QWAL2 #### [place] [address] [address] [place], [place] Platelets (Bld) [#/Vol] 183 10*3/uL Normal 140-440 [facility] Comment on above: Performed By: #### H EMDF, TROPN, BMP3, QWAL2 #### [place] [address] [address] [place], [place] RBC (Bld) [#/Vol] 4.54 10*6/uL Normal 3.80-5.20 [facility] Comment on above: Performed By: #### H EMDF, TROPN, BMP3, QWAL2 #### [place] [address] [address] [place] WBC (Bld) [#/Vol] 7.8 10*3/uL Normal 3.6-10.7 [facility] Comment on above: Performed By: #### H EMDF, TROPN, BMP3, QWAL2 #### [place] [address] [address] [place], [place] Troponin Ion 03-07-2021 Troponin I.cardiac [Mass/Vol] ng/mL Normal 0.000-0.034 [facility] [employer] Comment on above: Result Comment: . Performed By: #### H EMDF, TROPN, BMP3, QWAL2 #### [employer] [address] [place] [phone] Troponin [id number] By: Isreal Kincaid on 03-07-2021 Troponin I.cardiac [Mass/Vol] ng/mL 0.000 - 0.034 ng/mL [email or web address] Work Phone: Comment on above: . Test Performed by [employer], [address] [place] [id number] [facility] Work Phone: [facility] Work Phone: UrinalysisOrdered By: Sherin hanson on 03-07-2021 AMORPHOUS CRYSTAL Few Abnormal Negative /[HPF] [employer] Work Phone: Comment on above: . Appearance (U) Turbid Abnormal Clear NA [employer] Work Phone: Comment on above: . Bacteria, UA Moderate Abnormal Negative /[HPF] [facility] Work Phone: Comment on above: . Bilirubin Urine Negative Negative mg/dL [employer] Work Phone: Comment on above: . Color (U) Yellow Lt. Yellow NA [employer] Work Phone: Comment on above: . Glucose, Ur Normal Normal (<70) mg/dL [employer] Work Phone: Comment on above: . Hyaline Casts, UA Negative Negative /[LPF] [facility] Work Phone: Comment on above: . Interpretation and review of laboratory results Abnormal [employer] Work Phone: Ketones Ql (U) 10 mg/dL Abnormal Negative [employer] Work Phone: Comment on above: . LEUKOCYTES, UA 500 Abnormal Negative Robin/uL [facility] Work Phone: Comment on above: . Mucous Threads Many Abnormal Negative /[LPF] [employer] Work Phone: Comment on above: . Nitrite, Urine Negative Negative NA [facility] Work Phone: Comment on above: . Occult Blood,Urine Negative Negative mg/dL [facility] Work Phone: Comment on above: . pH (U) 6.0 [pH] [facility] Work Phone: Comment on above: . Protein (U) [Mass/Vol] 20 mg/dL Abnormal Negative [facility] Work Phone: Comment on above: . RBC, UA 26-50 Abnormal 0 - 2 /[HPF] [facility] Work Phone: Comment on above: . Specific [place], Urine 1.015 [facility] Work Phone: Comment on above: . Squam Epithel, UA 26-50 Abnormal 3 - 5 /[HPF] [facility] Work Phone: Comment on above: . Urobilinogen, Urine 2 mg/dL Abnormal Normal (0-1) [facility] Work Phone: Comment on above: . WBC, UA 26-50 Abnormal 0 - 5 /[HPF] [facility] Work Phone: Comment on above: . Test Performed by [employer], [address] [place] [address] [facility] Work Phone: [facility] Work Phone: hCG Qual Pregon 03-07-2021 hCG Qual Preg Negative Normal [facility] [employer] [facility] Comment on above: Result Comment: Refe rence Range: NEGATIVE Effective 10/10/2019, the reference interval for the qualitative test has been updated. This test detects hCG at concentrations of 10 mIU/L or greater in serum. Performed By: #### H EMDF, TROPN, BMP3, QWAL2 #### [employer] [facility] [place] [address] Chlam/GC-DNA Amplifiedon Chlam/GC-DNA Amplified Test performed at [facility] Chlamydia trachomatis DNA NOT DETECTED Neisseria gonorrhoeae DNA NOT DETECTED Reference range NOT DETECTED Method: Strand Displacement Amplification-BD ProbeTec Assay Comment: A negative result does not preclude C.trachomatis or N. gonorrhoeae infection because results are dependent on adequate specimen collection, absence of inhibitors, and sufficient DNA to be detected. Normal [facility] Comment on above: Performed By: #### T &S #### [place] [address] HIV Screenon 01-07-2019 HIV Screen Nonreactive Normal Nonreactive [facility] Comment on above: Performed By: #### 3 HIV #### [place] [address] Hepatitis Acute Panelon 12-28 HAV Ab IgM Negative Normal Negative [facility] Comment on above: Performed By: #### H EPP #### [place] [address] HB Core Ab IgM Negative Normal Negative [facility] Comment on above: Performed By: #### H EPP #### [place] [address] Hepatitis C Ab Negative Normal Negative [facility] Comment on above: Performed By: #### H EPP #### [place] [address] Hep.B Surface Ag Negative Normal Negative [facility] Comment on above: Performed By: #### H EPP #### [place] [address] Rapid Bact.Vaginosison 01-07 Rapid Bact.Vaginosis see below Normal Negative [facility] Comment on above: Result Comment: Posi tive for the presence of bacterial vaginosis. Performed By: #### R APBV #### [place] [address] Rapid Trichomonas Agon 01-07 Rapid Trichomonas Ag see below Normal Negative [facility] Comment on above: Result Comment: No T richomonas antigen present or the antigen level is below detection limit of the assay (2500 organisms/mL). Performed By: #### R APTR #### [place] [address] Rubella, Quantitativeon 12-28 Rubella, Quantitative 22.80 IU/mL Normal [facility] Comment on above: Result Comment: Not Immune <5.0 IU/mL Indeterminate >=5.0 IU/mL <=9.9 IU/ml Suggest repeat testing in 2-3 weeks Immune >=10.0 IU/mL Performed By: #### R UB3 #### [place] [address] Chlam/GC-DNA Amplifiedon Chlam/GC-DNA Amplified Test performed at [facility] Chlamydia trachomatis DNA NOT DETECTED Neisseria gonorrhoeae DNA NOT DETECTED Reference range NOT DETECTED Method: Strand Displacement Amplification-BD ProbeTec Assay Comment: A negative result does not preclude C.trachomatis or N. gonorrhoeae infection because results are dependent on adequate specimen collection, absence of inhibitors, and sufficient DNA to be detected. Normal [facility] Comment on above: Performed By: #### T &S #### [place] [address] Cult Urineon 01-06-2019 Cult Urine Test performed at [facility] ORGANISM: *Streptococcus agalactiae (Group B Strep) (ID: 1) >100,000 CFU/ml Normal [facility] Comment on above: Performed By: #### C _URI #### [place] [address] Hemogramon 01-06-2019 Erythrocyte distribution width (RBC) [Ratio] 14.2 % Normal 11.7-14.[address] [facility] Comment on above: Performed By: #### C BC1 #### [place] [address] Hematocrit (Bld) [Volume fraction] 36.1 % Normal 34.1-44.[address] [facility] Comment on above: Performed By: #### C BC1 #### [place] [address] Hemoglobin (Bld) [Mass/Vol] 12.0 g/dL Normal 11.2-15.[address] [facility] Comment on above: Performed By: #### C BC1 #### [place] [address] MCH (RBC) [Entitic mass] 29.6 pg Normal 25.6-32.[address] [facility] Comment on above: Performed By: #### C BC1 #### [facility] [address] [place] [address] MCHC (RBC) [Mass/Vol] 33.2 % Normal 31.6-34.[address] [facility] Comment on above: Performed By: #### C BC1 #### [facility] [address] [place] [address] MCV (RBC) [Entitic vol] 89.1 fL Normal 79.4-94.[address] [facility] Comment on above: Performed By: #### C BC1 #### [facility] [address] [place] [address] Platelet mean volume (Bld) [Entitic vol] 11.8 fL Normal 9.4-12.3 [facility] Comment on above: Performed By: #### C BC1 #### [facility] [address] [place] [address] Platelets (Bld) [#/Vol] 179 thou/cmm Low 182-[address] [facility] Comment on above: Performed By: #### C BC1 #### [facility] [address] [place] [address] RBC (Bld) [#/Vol] 4.05 mil/cmm Normal 3.93-5.[address] [facility] Comment on above: Performed By: #### C BC1 #### [facility] [address] [place] [address] RDW SD 46.3 fl Normal 36.4-46.[address] [facility] Comment on above: Performed By: #### C BC1 #### [facility] [address] [place] [address] WBC (Bld) [#/Vol] 8.27 thou/cmm Normal 3.98-10.04 [facility] Comment on above: Performed By: #### C BC1 #### [facility] [address] [place] [address] Pap,Cyto Gynon 01-06-2019 Pap,Cyto [employer] Specialist Test performed at [place] [id number] NAME: LISA MESA REQUESTING: EKTA SANCHEZ CNM SPECIMEN: TP CX REFLEX TO HPV ASCUS Relevant History: LMP: 10/23/2018 : Y, SPECIMEN ADEQUACY SATISFACTORY FOR EVALUATION. ENDOCERVICAL/TRANSFORM ATION ZONE COMPONENTS PRESENT. PARTIALLY OBSCURING INFLAMMATION. GENERAL CATEGORIZATION NEGATIVE FOR INTRAEPITHELIAL LESION OR MALIGNANCY. INTERPRETATION/RESULT REACTIVE CELLULAR CHANGES ASSOCIATED WITH INFLAMMATION OR REPAIR. SHIFT IN MARILU SUGGESTIVE OF BACTERIAL VAGINOSIS. Electronically signed: 02/03/2019 Screened by: ZEESHAN TAYLOR(ASCP) Signed Out by: JASON HIDALGO M.D. The Pap test serves as a screening tool for early detection of cervical cancer. The Pap test does not represent a final diagnostic test for cervical cancer. Furthermore, the Pap test was not designed to screen for other malignancies (endometrial, ovarian cancer, etc....). False negatives and false positives have occurred. If clinically indicated, further patient evaluation is recommended. Printed on: February 03, 2019 Page 1 of [address] [facility] Comment on above: Performed By: #### T &S #### [place] [address] RPRon 01-06-2019 Reagin Ab RPR Ql (S) Non-reactive Normal Nonreactive [facility] Comment on above: Performed By: #### R TN #### [place] [address] Type and Screenon 01-06-2019 ABO group Nom (Bld) O Normal [facility] Comment on above: Performed By: #### T &S #### [place] [address] Comment Out Patient Normal [facility] Comment on above: Performed By: #### T &S #### [place] [address] RH Type Positive Normal [facility] Comment on above: Performed By: #### T &S #### [place] [id number] HCG,Totalon 12-19-2018 HCG Qn 904834.0 m[IU]/mL Normal [facility] Comment on above: Result Comment: Male < or = 1 Non- female 1-3 Gestational Age: 0.2-1 Week 5 - 50 1-2 Weeks 50 - 500 2-3 Weeks 100 - 5000 3-4 Weeks 500 - 04604 4-5 weeks 1000 - 60206 5-6 weeks 74392 - 100,000 6-8 weeks 11395 - 200,000 2-3 months 46138 - 100,000 Performed By: #### H #### [place] [id number] GROUP B BETA STREP SCREENon 08-10-2017 GROUP B BETA STREP SCREEN SPECIMEN NUMBER: [id number] [facility] Comment on above: Result Comment: GROU P B BETA STREP SCREEN REPORT STATUS: FINAL SITE/TYPE: RECTAL/VAGINAL CULTURE RESULT(S): NO GROUP B STREPTOCOCCUS ISOLATEDPathology Laboratories, Inc. [address] [place], [place] [address]Laboratory Director: Nimesh Colon M.D.CLIA No. [id number] [facility] Accreditation No. [id number] HEMOGLOBIN ELECTROPHORESISon 05-08-2017 Hemoglobin mass conc (Bld) 2.8 % Normal 1.6-3.7 [facility] Hemoglobin mass conc (Bld) NONE DETEC Normal NONE DETECTED [facility] Hemoglobin mass conc (Bld) NONE Normal NONE DETECTED [facility] Hemoglobin mass conc (Bld) 0.0 % Normal 0.0-2.0 [facility] Hemoglobin mass conc (Bld) 97.2 % Normal 95.0-98.5 [facility] Hemoglobin S presence NONE Normal NONE DETECTED [facility] PATHOLOGIST'S INTERPRETATION [facility] Comment on above: Result Comment: NO A BNORMAL HEMOGLOBINS IDENTIFIED. LOTUS TEIXEIRA M.D. Test performed at [facility] [address] [place] [address], [place] [address] CLIA Number [id number] [facility] Accreditation Number [id number] CBC W/AUTO DIFFon 05-04-2017 % NEUTROPHILS 61.4 % Normal [facility] ABS BASOPHILS 0.0 K/ul Normal 0.0-0.1 [facility] Basophils/100 WBC Auto (Bld) 0.2 % Normal [facility] Comment on above: Result Comment: MIKE VIGIL DIFFERENTIAL PERFORMED Eosinophils 0.1 10*3/uL Normal 0.1-0.4 [facility] Eosinophils/100 leukocytes 1.1 % Normal [facility] Erythrocyte distribution width Auto Ratio (RBC) 15.1 % High 10.8-14.8 [facility] Erythrocytes (RBC) 3.20 10*6/uL Low 4.00-5.50 [facility] Hematocrit (HCT) 29.0 % Low 36.0-48.0 [facility] Hemoglobin mass conc (Bld) 9.5 g/dL Low 12.0-16.0 [facility] Lymphocytes 2.6 10*3/uL Normal 0.8-5.2 [facility] Lymphocytes/100 leukocytes 29.1 % Normal [facility] MCH 29.7 pg Normal 27.0-34.0 [facility] MCHC mass conc (RBC) 32.8 g/dL Normal 31.0-36.0 [facility] MCV 90.6 fL Normal 80.-100. [facility] Monocytes 0.7 10*3/uL Normal 0.1-0.9 [facility] Monocytes/100 leukocytes 7.6 % Normal [facility] Neutrophils 5.4 10*3/uL Normal 1.3-9.1 [facility] Platelets 198 10*3/uL Normal 150.-450. [facility] WBC (Leukocytes) 8.8 10*3/uL Normal 3.7-10.8 [facility] CHLAMYDIA/N. GONORRHOEAE/T. VAGINALIS, AMPLIFIED PROBEon 05-04-2017 CHLAM TRACHOMATIS rRNA: Negative Normal NEGATIVE [facility] NEISS GONORRHOEAE rRNA Negative Normal NEGATIVE [facility] SOURCE: VAGINA Normal [facility] TRICH VAGINALIS rRNA Negative Normal NEGATIVE [facility] Comment on above: Result Comment: Asher araujo methodology is nucleic acid amplification by beam sealer mediated amplification (TMA) utilizing the Aptima Combo 2 Assay. GLUCOSEon 05-04-2017 Glucose mass conc 114 mg/dL High 70-100 [facility] Comment on above: Result Comment: DIAG NOSTIC THRESHOLDS FOR DIABETES AND IMPAIRED FASTING GLUCOSE (IFG) FASTING PLASMA GLUCOSE NORMAL <100 MG/DL IFG 100-125 MG/DL DIABETES >/= 126 MG/DL GLUCOSE, POST GLUCOLAon 10-0 DRAW TIME 1 HOUR POST-GLUCOLA Normal [facility] Comment on above: Result Comment: DIAG NOSTIC THRESHOLDS FOR DIABETES AND IMPAIRED GLUCOSE TOLERANCE(IGT) USING ORAL GLUCOSE TOLERANCE TEST: 2-HOUR PLASMA GLUCOSE NORMAL <140 MG/DL IGT 140-199 MG/DL DIABETES >/= 200 MG/DLPathology Laboratories, Inc. [address] [place], [place] [address]Laboratory Director: David Benitez M.D.CLIA No. [id number] [facility] Accreditation No. [id number] Glucose mass conc 108 mg/dL Normal <140 [facility] CYSTIC FIBROSIS GENOTYPE, 13 9 MUTATIONSon 04-05-2017 CF 139 INTERPRETATION Negative [facility] MUTATION 1 Not Detected [facility] POSITIVE FAMILY HISTORY? No [facility] SOURCE Blood Normal [facility] Comment on above: Result Comment: Inte rpretation: This patient is negative for the cystic fibrosismutations analyzed, including the 23 mutations recommended forscreening by the [employer] [employer] and [employer]ne[employer]. This result does not rule outthe possibility that this individual could be a carrier of a mutationnot detected by this test. This test detects approximately 95.4% ofCF causing mutations based on the CFTR2 database (February 2013).Appropriate genetic counseling is recommended. The following tableprovides probability data to be used in the genetic counselingof this individual:Ethnicity Prior Risk Revised Risk ----- 1 in 28 1 in 588 (0.2%)Ashkenazi Latter Day 1 in 29 1 in 610 (0.2%) 1 in 58 1 in 1262 (0.08%) 1 in 84 1 in 1805 (0.06%) 1 in 242 1 in 5240 (0.02%)DNA studies do not constitute a definitive carrier test for CF in allindividuals. There are possible sources of diagnostic error,including genetic variants, blood transfusion or bone marrowtransplant, and trace contamination of PCR reactions.Method: The CFTR gene was tested for the following 139 mutations andvariants, including the 23 mutations recommended by the AmericanPallege of Obstetrics and Gynecology, by next-generation sequencingusing the Illumina ScryerDx Cystic Fibrosis assay. Reference sequenceis [id number]. The following mutations were analyzed:[id number] c.1A>G c.115C>T c.178G>Tc.200C>T c.223C>T c.254G>A c.262_263delTT c.273+1G>Ac.274-1G>A c.274G>A c.274G>T c.292C>T c.325_327delTATinsGc.328G>C c.349C>T c.350G>A c.366T>A c.442delAc.489+1G>T c.531delT c.532G>A c.579+1G>T c.579+3A>Gc.579+5G>A c.580-1G>T c.595C>T c.613C>T c.617T>Gc.658C>T c.720_741delAGGGAGAATGATGATGAAGTAC c.948delTc.988G>T c.1000C>T c.1007T>A c.1013C>T c.1021T>Cc.1022_1023insTC c.1040G>A c.1040G>C c.1055G>A c.1081delTc.1116+1G>A c.1127_1128insA c.1202G>A c.1203G>A c.1209+1G>Ac.1329_1330insAGAT c.1364C>A c.1393-1G>A c.1397C>G c.1397C>Ac.1400T>C c.1418delG c.1466C>A c.1475C>T c.1477C>Tc.1519_1521delATC c.1521_1523delCTT c.1545_1546delTA c.1558G>Tc.1573C>T c.1585-8G>A c.1585-1G>A c.1624G>T c.1645A>Cc.1646G>A c.1647T>G c.1652G>A c.1654C>T c.1657C>Tc.1675G>A c.1679G>C c.1679G>A c.1679+1.6kbA>G c.1680-1G>Ac.1753G>T c.1766+1G>A c.1766+3A>G c.2011delT c.2051_2052delAAinsGc.2052_2053insA c.2052delA c.2125C>T c.2128A>T c.2175_2176insAc.2195T>G c.2215delG c.2290C>T c.2453delT c.2464G>Tc.2490+1G>T c.2491G>T c.2537G>A c.2551C>T c.2583delTc.2657+5G>A c.2668C>T c.2780T>C c.2834C>T c.2875delGc.2908G>C c.2988G>A c.2988+1G>A c.2989-1G>A c.3140-26A>Gc.3194T>C c.3196C>T c.3197G>A c.3230T>C c.3266G>Ac.3276C>A c.3276C>G c.3302T>A c.3310G>T c.3472C>Tc.3484C>T c.3528delC c.3587C>G c.3611G>A c.3612G>Ac.3659delC c.3717+20445Q>T c.3731G>A c.3744delA c.3752G>Ac.3773_3774insT c.3846G>A c.3873+1G>A c.3884_3885insT c.3909C>Gc.3937C>T c.3964-78_4242+577del c.4077_4080delTGTTinsAA c.4251delAConditionally reported variants:c.1210-12T[5_9] c.1516A>G c.1519A>G c.1523T>GElectronically Signed by David Nash M.D. Test performed at [facility] Reference [address], [address] [place] [address] Watch Parts Inspector: David Nash M.D. CLIA Number [id number] [facility] Accreditation Number [id number] [facility] Comment on above: Result Comment: Test performed at [employer] [address] [address] CLIA Number [id number] HEMOGLOBIN ELECTROPHORESISon 04-03-2017 Hemoglobin mass conc (Bld) 2.7 % Normal 1.6-3.7 [facility] Hemoglobin mass conc (Bld) 97.3 % Normal 95.0-98.5 [facility] Hemoglobin mass conc (Bld) NONE DETEC Normal NONE DETECTED [facility] Hemoglobin mass conc (Bld) NONE Normal NONE DETECTED [facility] Hemoglobin mass conc (Bld) 0.0 % Normal 0.0-2.0 [facility] Hemoglobin S presence NONE Normal NONE DETECTED [facility] PATHOLOGIST'S INTERPRETATION [facility] Comment on above: Result Comment: NO A BNORMAL HEMOGLOBINS IDENTIFIED. VITOR RUSSELL M.D. Test performed at [facility] [address] [place] [address] CLIA Number [id number] [facility] Accreditation Number [id number] QUADRUPLE SCREENING TEST LAWRENCE Becerril INTERPRETATIONon 04-03-2017 Calc Trisomy 18 risk 1:32374 [facility] DETERMINED BY: LMP [facility] Down Syndrome risk interpret [facility] Comment on above: Result Comment: --- NORMAL - NOT AT INCREASED RISK --- The results of the tests yield a risk for Down Syndrome less than that of a woman age 35. (Screen cutoff is 1:270) However, the gestational age was based upon the last menstrual period. Ultrasound is the most accurate method for determining gestational age. If Ultrasound confirmation of gestational age is performed and shows a different gestational age than last menstrual period dating, please contact the laboratory for recalculation of risks. DS/T21 risk (age, lab results 1:9000 [facility] DS/T21 risk age alone 1:1141 [facility] Neural tube defect interpreta Normal [facility] Comment on above: Result Comment: --- NORMAL - NOT AT AN INCREASED RISK --- The AFP results indicate a risk for a neural tube defect of less than or equal to that of the general population. (A normal result is defined as an Adjusted AFP M.O.M. of less than 2.50 for non-diabetics and less than 2.0 for diabetics). However, the gestational age was based upon the last menstrual period. Ultrasound is the most accurate method for determining gestational age. If ultrasound confirmation of gestational age is performed and shows a different gestational age than last menstrual period dating, please contact the laboratory for recalculation of risks. Note that this is a screening test only. Normal results are not a guarantee of a normal . Neural tube defect risk 1:28957 [facility] AFP 38.8 NG/ML [facility] INHIBIN A 211 PG/ML [facility] Comment on above: Result Comment: Test performed at [facility] [address] [place] [address] CLIA Number [id number] [facility] Accreditation Number [id number] UE3 2.00 NG/ML [facility] Trisomy 18 risk interpretatio [facility] Comment on above: Result Comment: ---N ORMAL - NOT AT INCREASED RISK --- (Screen cutoff is 1:100) Note that this is a screening test only. Normal results are not a guarantee of a normal . ---- [facility] ADJUST AFP M.O.M. 0.718 M.O.M. [facility] ADJUST HCG M.O.M. 1.694 M.O.M. [facility] ADJUST INHIBIN A M.O.M. 0.788 M.O.M. [facility] ADJUST UE3 M.O.M. 1.275 M.O.M. [facility] DATE OF 1995 [facility] DATE OF LMP 11/11/16 [facility] DOWN SYND/TRISOMY 21 RISK NOT INCREASED [facility] FAMILY HISTORY OF NTD NO [facility] GESTATIONAL AGE 19.6 WEEKS Normal [facility] HCG Qn 37.6 IU/ML [facility] INITIAL/REPEAT INITIAL [facility] INSULIN DEP. DIABETIC NO [facility] INTERPRETATION: Negative [facility] Comment on above: Result Comment: SCRE EN NEGATIVE FOR OPEN NEURAL TUBE DEFECT. SCREEN NEGATIVE FOR DOWN SYNDROME. SCREEN NEGATIVE FOR TRISOMY 18. SEE ANALYSIS BELOW FOR SPECIFIC RISK ASSESSMENT. NEURAL TUBE DEFECT RISK NOT INCREASED [facility] NUMBER OF GESTATIONS 1 Normal [facility] RACE BLACK [facility] SMOKER? YES [facility] TRISOMY 18 ASSESSMENT NOT INCREASED [facility] Weight 78.9264 kg Normal [facility] VARICELLA ZOSTER IGGon 04-03 VARICELLA ZOSTER IGG 477 INDEX Normal SEE BELOW [facility] Comment on above: Result Comment: INTE RPRETATION VZV IgG NEGATIVE . . . . . . . . . . . . INDEX <135 EQUIVOCAL. . . . . . . . . . . . INDEX 135-165 NOTE: CONSIDER RETESTING IN A CLINICALLY SUITABLE PERIOD OF TIME, NO SOONER THAN 1-2 WEEKS. POSITIVE . . . . . . . . . . . . INDEX >165 Test performed at [facility] [address] [place] [address] CLIA Number [id number] [facility] Accreditation Number [id number] [facility] [address] [place] [id number] Director: David Benitez M.D.CLIA No. [id number] [facility] Accreditation No. [id number] PROFILE 017 ABO group O [facility] Comment on above: Result Comment: Test performed at [address] [address] CLIA NUMBER [id number] ANTIBODY SCREEN Negative Normal NEGATIVE [facility] Comment on above: Result Comment: Test performed at [place] [address] CLIA NUMBER [id number] Rh type Positive [facility] Comment on above: Result Comment: Test performed at [address] [place] [address] CLIA NUMBER [id number] URINE CULTUREon 03-30-2017 Urine culture, bacteria SPECIMEN NUMBER: [id number] [facility] Comment on above: Result Comment: URIN E CULTURE REPORT STATUS: FINAL SITE/TYPE: CLEAN CATCH/MIDSTREAM CULTURE RESULT(S): NEGATIVE FOR URINARY TRACT PATHOGENS(i.e. no predominant organism present). GROWTH OF MIXED MARILU NOTED MOST CONSISTENT WITH CONTAMINATION. (i.e.skin marilu/distal urethral marilu). CHLAMYDIA/N. GONORRHOEAE/T. VAGINALIS, AMPLIFIED PROBEon 03-29-2017 CHLAM TRACHOMATIS rRNA: Negative Normal NEGATIVE [facility] NEISS GONORRHOEAE rRNA Negative Normal NEGATIVE [facility] SOURCE: VAGINA [facility] TRICH VAGINALIS rRNA Positive Abnormal NEGATIVE [facility] Comment on above: Result Comment: Asher araujo methodology is nucleic acid amplification by beam sealer mediated amplification (TMA) utilizing the Aptima Combo 2 Assay. HIV-1,2 COMBO AG/ABon 2016 HIV-1,2 COMBO AG/AB NON-REACTIVE Normal NON-REACTIVE P [facility] PROFILE 2on 017 RUBELLA IGG 13.3 IU/ml [facility] Comment on above: Result Comment: TODD MMUNE.............. <5.0 IU/mL EQUIVOCAL........... 5.0-9.9 IU/mL IMMUNE..............>/= 10.0 IU/mLANTIBODY LEVELS IN THE EQUIVOCAL RANGE FOR THIS ASSAY MAY BEINSUFFICIENT TO PROTECT AGAINST CLINICAL ILLNESS UPON EXPOSURE TORUBELLA VIRUS. TO DIAGNOSE A CURRENT INFECTION FOR EQUIVOCALSPECIMENS, A SECOND SAMPLE SHOULD BE SUBMITTED IN 2-3 WEEKS TO DETECTAN INCREASE IN THE RUBELLA ANTIBODY. HEPATITIS B SURFACE AG Negative Normal NEGATIVE [facility] RPR SCREEN NON-REACTIVE Normal NON-REACTIVE [facility] % NEUTROPHILS 58.5 % [facility] ABS BASOPHILS 0.0 K/ul Normal 0.0-0.1 [facility] Basophils/100 WBC Auto (Bld) 0.3 % [facility] Comment on above: Result Comment: MIKE VIGIL DIFFERENTIAL PERFORMED Eosinophils 0.1 10*3/uL Normal 0.1-0.4 [facility] Eosinophils/100 leukocytes 1.5 % Normal [facility] Erythrocyte distribution width Auto Ratio (RBC) 15.4 % High 10.8-14.8 [facility] Erythrocytes (RBC) 3.59 10*6/uL Low 4.00-5.50 [facility] Hematocrit (HCT) 30.9 % Low 36.0-48.0 [facility] Hemoglobin mass conc (Bld) 10.3 g/dL Low 12.0-16.0 [facility] Lymphocytes 2.2 10*3/uL Normal 0.8-5.2 [facility] Lymphocytes/100 leukocytes 32.5 % [facility] MCH 28.7 pg Normal 27.0-34.0 [facility] MCHC mass conc (RBC) 33.3 g/dL Normal 31.0-36.0 [facility] MCV 86.1 fL Normal 80.-100. [facility] Monocytes 0.5 10*3/uL Normal 0.1-0.9 [facility] Monocytes/100 leukocytes 6.8 % Normal [facility] Neutrophils 3.9 10*3/uL Normal 1.3-9.1 [facility] Platelets 186 10*3/uL Normal 150.-450. [facility] WBC (Leukocytes) 6.7 10*3/uL Normal 3.7-10.8 [facility] TOTAL HCGon 03-29-2017 [place] [address].0 m[IU]/mL Normal [facility] Comment on above: Result Comment: TOTA L HCG REFERENCE RANGE: MALES <5 mIU/ml FEMALE NON- <5 INCONCLUSIVE 5-15 >15 GESTATION WEEK MEDIAN RANGE 1-2 71 16-156 2-3 607 101-4,870 3-4 5,243 1,110-31,500 4-5 26,983 2,560-82,300 5-6 52,090 23,100-151,000 6-7 93,598 27,300-233,000 7-11 117,678 20,900-291,000 11-16 40,989 6,140-103,000 16-21 20,868 4,420-80,100 21-39 15,352 2,700-78,000 Vital Signs Date Time Vital Sign Value Performing Clinician Daniel alexander 09-30-2024 11:44-0500 Diastolic Blood Pressure Non-Invasive 93 mm[Hg] MARLENA [employer]RFinityT [employer] [facility] 09-30-2024 11:44-0500 Heart rate 84 /min MARLENA [employer] [facility] 09-30-2024 11:44-0500 Respiratory rate 16 /min MARLENA [employer] [facility] 09-30-2024 11:44-0500 Systolic Blood Pressure Non-Invasive 137 mm[Hg] MARLENA [employer] [facility] 09-30-2024 10:12-0500 Blood Pressure Location MARLENA [employer] [facility] 09-30-2024 10:12-0500 Blood Pressure Method MARLENA [employer] [facility] 09-30-2024 10:12-0500 Body temperature 97.88 [degF] MARLENA [employer] [facility] 09-30-2024 10:12-0500 Diastolic Blood Pressure Non-Invasive 78 mm[Hg] MARLENA Indust[employer] KidT DO [facility] 09-30-2024 10:12-0500 Heart rate 94 /min MARLENA [employer] [facility] 09-30-2024 10:12-0500 Respiratory rate 18 /min MARLENA [employer] [facility] 03-04-2025 10:12-0500 Systolic Blood Pressure Non-Invasive 128 mm[Hg] MARLENA LOWERY DO [facility] 05-06-2024 15:11-0400 Body mass index (BMI) [Ratio] 30.2 kg/m2 Zachariah Currie MD Work Phone: [facility] 05-06-2024 15:11-0400 Body weight 96.16 kg Zachariah Currie MD Work Phone: [facility] 05-06-2024 15:11-0400 Diastolic blood pressure 70 mm[Hg] Zachariah Currie MD Work Phone: [facility] 05-06-2024 15:11-0400 Heart rate 102 /min Zachariah Currie MD Work Phone: [facility] 05-06-2024 15:11-0400 Respiratory rate 18 /min Zachariah Currie MD Work Phone: [facility] 05-06-2024 15:11-0400 Systolic blood pressure 108 mm[Hg] Zachariah Currie MD Work Phone: [facility] 05-01-2024 13:45-0400 Body mass index (BMI) [Ratio] 30.49 kg/m2 Leti Aranda RETAIL COORDINATOR.CNM Work Phone: [facility] 05-01-2024 13:45-0400 Body weight 97.07 kg Leti Aranda RETAIL COORDINATOR.CNM Work Phone: [facility] 05-01-2024 13:45-0400 Diastolic blood pressure 70 mm[Hg] Leti Aranda RETAIL COORDINATOR.CNM Work Phone: [facility] 05-01-2024 13:45-0400 Systolic blood pressure 108 mm[Hg] Leti Plotts RETAIL COORDINATOR.CNM Work Phone: [facility] 04-28-2024 11:36-0400 Body height 178.4 cm Sushil Villanueva RETAIL COORDINATOR.ENVIRONMENTAL HEALTH AND SAFETY LEADER Work Phone: [facility] 04-28-2024 11:36-0400 Body mass index (BMI) [Ratio] 30.72 kg/m2 Sushil Sinclairsirena LANIER.ENVIRONMENTAL HEALTH AND SAFETY LEADER Work Phone: [facility] 04-28-2024 11:36-0400 Body weight 97.8 kg Sushil Villanueva RETAIL COORDINATOR.ENVIRONMENTAL HEALTH AND SAFETY LEADER Work Phone: [facility] 04-28-2024 11:36-0400 Diastolic blood pressure 68 mm[Hg] Sushil Villanueva RETAIL COORDINATOR.ENVIRONMENTAL HEALTH AND SAFETY LEADER Work Phone: [facility] 04-28-2024 11:36-0400 Systolic blood pressure 116 mm[Hg] Sushil Villanueva RETAIL COORDINATOR.ENVIRONMENTAL HEALTH AND SAFETY LEADER Work Phone: [facility] 10-14-2023 22:57-0400 Body temperature 98.4 [degF] Child Protective Investigator [facility] 10-14-2023 22:57-0400 Body weight 104.326 Child Protective Investigator [facility] 10-14-2023 22:57-0400 Diastolic blood pressure 88 mm[Hg] Child Protective Investigator [facility] 10-14-2023 22:57-0400 Heart rate 94 /min Child Protective Investigator [facility] 10-14-2023 22:57-0400 Respiratory rate 16 /min Child Protective Investigator [facility] 10-14-2023 22:57-0400 SaO2% (BldA) [Mass fraction] 100 % Child Protective Investigator [facility] 10-14-2023 22:57-0400 Systolic blood pressure 141 mm[Hg] Child Protective Investigator [facility] 08-11-2023 13:10-0500 Body temperature 97.1 [degF] Child Protective Investigator [facility] 08-11-2023 13:10-0500 Body weight 102.058 Child Protective Investigator [facility] 08-11-2023 13:10-0500 Diastolic blood pressure 94 mm[Hg] Child Protective Investigator [facility] 08-11-2023 13:10-0500 Heart rate 91 /min Child Protective Investigator [facility] 08-11-2023 13:10-0500 Respiratory rate 16 /min Child Protective Investigator [facility] 08-11-2023 13:10-0500 SaO2% (BldA) [Mass fraction] 100 % Child Protective Investigator [facility] 08-11-2023 13:10-0500 Systolic blood pressure 126 mm[Hg] Child Protective Investigator [facility] 05-12-2023 03:52-0400 Heart rate 104 /min Child Protective Investigator [facility] 05-12-2023 03:47-0400 Body temperature 97.7 [degF] Child Protective Investigator [facility] 05-12-2023 03:47-0400 Body weight 97.795 Child Protective Investigator [facility] 05-12-2023 03:47-0400 Diastolic blood pressure 106 mm[Hg] Child Protective Investigator [facility] 05-12-2023 03:47-0400 Respiratory rate 18 /min Child Protective Investigator [facility] 05-12-2023 03:47-0400 SaO2% (BldA) [Mass fraction] 100 % Child Protective Investigator [facility] 05-12-2023 03:47-0400 Systolic blood pressure 148 mm[Hg] Child Protective Investigator [facility] 09-26-2022 23:37-0500 Respiratory rate 18 /min Marcelo Robles MD Work Phone: [facility] 09-26-2022 21:40-0500 SaO2% (BldA) [Mass fraction] 96 % Marcelo Robles MD Work Phone: [facility] 09-26-2022 20:45-0500 Diastolic blood pressure 93 mm[Hg] Marcelo Robles MD [facility] Phone[facility] [employer] 09-26-2022 20:45-0500 Systolic blood pressure 135 mm[Hg] Marcelo Robles MD Work Phone: [facility] [employer] 09-26-2022 20:18-0500 Body height 170.2 cm Marcelo Robles MD Work Phone: [facility] [employer] 09-26-2022 20:18-0500 Body mass index (BMI) [Ratio] 33.05 kg/m2 Marcelo Robles MD Work Phone: [facility] [employer] 09-26-2022 20:18-0500 Body weight 95.71 kg Marcelo Robles MD Work Phone: [facility] [employer] 09-26-2022 20:04-0500 Body temperature 98.4 [degF] Marcelo Robles MD Work Phone: [facility] [employer] 09-26-2022 20:04-0500 Heart rate 114 /min Marcelo Robles MD Work Phone: [facility] [employer] 09-25-2022 14:15-0500 Diastolic blood pressure 81 mm[Hg] Tod [employer] [facility] 09-25-2022 14:15-0500 Heart rate 80 /min Tod Fil[employer] [facility] 09-25-2022 14:15-0500 Respiratory rate 16 /min Tod Filmer [facility] 09-25-2022 14:15-0500 SaO2% (BldA) [Mass fraction] 98 % Tod Filmer [facility] 09-25-2022 14:15-0500 Systolic blood pressure 123 mm[Hg] Tod Filmer [facility] 09-25-2022 12:15-0500 Body temperature 96.9 [degF] Tod Filmer [facility] 09-25-2022 12:15-0500 Body weight 96.61 kg Tod Filmer [facility] 03-08-2022 10:00-0400 Heart rate 87 /min JOSSIE HAYES MD [facility] 03-08-2022 10:00-0400 Mean blood pressure 100 mm[Hg] JOSSIE HAYES MD [facility] 03-08-2022 10:00-0400 Systolic blood pressure 134 mm[Hg] JOSSIE HAYES MD [facility] 03-08-2022 07:11-0400 Body temperature 98.06 [degF] JOSSIE HAYES MD [facility] 03-08-2022 07:11-0400 Diastolic blood pressure 97 mm[Hg] JOSSIE HAYES MD [facility] 03-08-2022 07:11-0400 Heart rate 81 /min JOSSIE HAYES MD [facility] 03-08-2022 07:11-0400 Mean blood pressure 112 mm[Hg] JOSSIE HAYES MD [facility] 03-08-2022 07:11-0400 Respiratory rate 18 /min JOSSIE HAYES MD [facility] 03-08-2022 07:11-0400 Systolic blood pressure 141 mm[Hg] JOSSIE HAYES MD [facility] 03-08-2022 04:43-0400 Diastolic blood pressure 83 mm[Hg] JOSSIE HAYES MD [facility] 03-08-2022 04:43-0400 Heart rate 75 /min JOSSIE HAYES MD [facility] 03-08-2022 04:43-0400 Mean blood pressure 101 mm[Hg] JOSSIE HAYES MD [facility] 03-08-2022 04:43-0400 Respiratory rate 16 /min JOSSIE HAYES MD [facility] 03-08-2022 04:43-0400 Systolic blood pressure 136 mm[Hg] JOSSIE HAYES MD [facility] 03-07-2022 23:00-0400 Body temperature 98.42 [degF] JOSSIE HAYES MD [facility] 03-07-2022 23:00-0400 Respiratory rate 16 /min JOSSIE HAYES MD [facility] 03-07-2022 16:57-0400 Body temperature 98.6 [degF] JOSSIE HAYES MD [facility] 03-05-2022 10:05-0400 Body height 177.8 cm JOSSIE HAYES MD [facility] 03-05-2022 10:05-0400 Body weight 109.1 kg JOSSIE HAYES MD [facility] 03-05-2022 10:05-0400 Body weight 34.51 kg/m2 JOSSIE HAYES MD [facility] 01-18-2022 03:00-0400 Body temperature 98.06 [degF] MICHI LEONARD DO [facility] 01-18-2022 03:00-0400 Diastolic blood pressure 64 mm[Hg] MICHI VASSAS DO [facility] 01-18-2022 03:00-0400 Heart rate 79 /min MICHI VASSAS DO [facility] 01-18-2022 03:00-0400 Mean blood pressure 83 mm[Hg] MICHI VASSAS DO [facility] 01-18-2022 03:00-0400 Respiratory rate 16 /min MICHI VASSAS DO [facility] 01-18-2022 03:00-0400 Systolic blood pressure 120 mm[Hg] MICHI VASSAS DO [facility] 01-17-2022 23:00-0400 Body temperature 97.88 [degF] MICHI VASSAS DO [facility] 01-17-2022 23:00-0400 Diastolic blood pressure 79 mm[Hg] MICHI VASSAS DO [facility] 01-17-2022 23:00-0400 Heart rate 98 /min MICHI VASSAS DO [facility] 01-17-2022 23:00-0400 Mean blood pressure 94 mm[Hg] MICHI VASSAS DO [facility] 01-17-2022 23:00-0400 Respiratory rate 14 /min MICHI VASSAS DO [facility] 01-17-2022 23:00-0400 Systolic blood pressure 123 mm[Hg] MICHI VASSAS DO [facility] 01-17-2022 19:30-0400 Body temperature 98.06 [degF] MICHI VASSAS DO [facility] 01-17-2022 19:30-0400 Diastolic blood pressure 60 mm[Hg] MICHI VASSAS DO [facility] 01-17-2022 19:30-0400 Heart rate 99 /min MICHI VASSAS DO [facility] 01-17-2022 19:30-0400 Mean blood pressure 79 mm[Hg] MICHI VASSAS DO [facility] 01-17-2022 19:30-0400 Respiratory rate 16 /min MICHI VASSAS DO [facility] 01-17-2022 19:30-0400 Systolic blood pressure 118 mm[Hg] MICHI VASSAS DO [facility] 01-17-2022 17:06-0400 Body height 177.8 cm MICHI VASSAS DO [facility] 01-17-2022 17:06-0400 Body weight 110 kg MICHI VASSAS DO [facility] 01-17-2022 17:06-0400 Body weight 34.8 kg/m2 MICHI VASSAS DO [facility] 01-17-2022 14:42-0400 Body height 177.8 cm MICHI VASSAS DO [facility] 01-17-2022 14:42-0400 Body weight 110 kg MICHI VASSAS DO [facility] 01-17-2022 14:42-0400 Body weight 34.8 kg/m2 MICHI VASSAS DO [facility] 12-06-2021 15:54-0400 Body height 177.8 cm GATITO ODOM DO [facility] 12-06-2021 15:54-0400 Body weight 114 kg GATITO GARVEYTimeLynes DO [facility] 12-06-2021 15:54-0400 Body weight 36.06 kg/m2 GATITO ODOM DO [facility] 08-07-2021 16:36-0500 Body temperature 98.06 [degF] NANDA TOLEDO DO [facility] 08-07-2021 16:36-0500 Diastolic blood pressure 87 mm[Hg] NANDA TOLEDO DO [facility] 08-07-2021 16:36-0500 Heart rate 95 /min NANDA TOLEDO DO [facility] 08-07-2021 16:36-0500 Respiratory rate 16 /min NANDA TOLEDO DO [facility] 08-07-2021 16:36-0500 Systolic blood pressure 129 mm[Hg] NANDA TOLEDO DO [facility] 05-18-2021 12:24-0400 Body temperature 98.24 [degF] DR JOSÉ MIGUEL MAGALLANES MD [facility] 05-18-2021 12:24-0400 Diastolic blood pressure 64 mm[Hg] DR JOSÉ MIGUEL MAGALLANES MD [facility] 05-18-2021 12:24-0400 Heart rate 78 /min DR JOSÉ MIGUEL MAGALLANES MD [facility] 05-18-2021 12:24-0400 Respiratory rate 18 /min DR JOSÉ MIGUEL MAGALLANES MD [facility] 05-18-2021 12:24-0400 Systolic blood pressure 103 mm[Hg] DR JOSÉ MIGUEL MAGALLANES MD [facility] 03-15-2021 22:43-0400 Diastolic blood pressure 77 mm[Hg] [facility] Work Phone: 03-15-2021 22:43-0400 Heart rate 97 /min [facility] Work Phone: 03-15-2021 22:43-0400 Respiratory rate 16 /min [facility] Work Phone: 03-15-2021 22:43-0400 SaO2% (BldA) [Mass fraction] 99 % [facility] Work Phone: 03-15-2021 22:43-0400 Systolic blood pressure 127 mm[Hg] [facility] Work Phone: 03-15-2021 20:21-0400 Body temperature 97.81 [degF] [facility] Work Phone: 03-15-2021 20:20-0400 Body height 177.8 cm [employer] Work Phone: 03-15-2021 20:20-0400 Body mass index (BMI) [Ratio] 25.83 kg/m2 [employer] Work Phone: 03-15-2021 20:20-0400 Body weight 81.65 kg [employer] Work Phone: 03-07-2021 02:39-0400 Diastolic blood pressure 80 mm[Hg] Isreal Kincaid MD Work Phone: [employer] Work Phone: 03-07-2021 02:39-0400 Heart rate 99 /min Isreal Kincaid MD Work Phone: [employer] Work Phone: 03-07-2021 02:39-0400 Respiratory rate 16 /min Isreal Kincaid MD Work Phone: [employer] Work Phone: 03-07-2021 02:39-0400 SaO2% (BldA) [Mass fraction] 100 % Isreal Kincaid MD Work Phone: [employer] Work Phone: 03-07-2021 02:39-0400 Systolic blood pressure 113 mm[Hg] Isreal Kincaid MD Work Phone: [employer] Work Phone: 03-07-2021 02:04-0400 Body height 177.8 cm Isreal Kincaid MD Work Phone: [employer] Work Phone: 03-07-2021 02:04-0400 Body mass index (BMI) [Ratio] 25.83 kg/m2 Isreal Kincaid MD Work Phone: [employer] Work Phone: 03-07-2021 02:04-0400 Body weight 81.65 kg Isreal Kincaid MD [facility] Phone: [facility] Work Phone: 03-07-2021 00:27-0400 Body temperature 98.4 [degF] Isreal Kincaid MD Work Phone: [facility] Work Phone: Encounters Encounter Date Encounter Type Care Provider Facility Start: 09-30-2024 End: 09-30-2024 Emergency department patient visit MARLENA LOWERY DO [facility] Start: 09-03-2024 ambulatory ARLINE GOODWIN RETAIL COORDINATOR-ENVIRONMENTAL HEALTH AND SAFETY LEADER Facility:[facility] Start: 08-22-2024 End: 08-22-2024 ambulatory ARLINE CORADO RETAIL COORDINATOR-ENVIRONMENTAL HEALTH AND SAFETY LEADER Facility:D Start: 08-11-2024 Emergency department patient visit MARCELO JASBIR Facility:[id number] Start: 08-08-2024 End: 08-08-2024 Emergency department patient visit [facility] Facility:[facility] Start: 07-17-2024 End: 07-17-2024 Emergency department patient visit Oseas Aviles Facility:[facility] Start: 07-12-2024 End: 07-12-2024 Emergency department patient visit Abhinav Sofia Facility:[facility] Start: 06-16-2024 End: 06-16-2024 Emergency department patient visit [facility] Facility:[facility] Start: 05-18-2024 End: 05-18-2024 Emergency department patient visit No Primary Care Physician Facility:[facility] Start: 05-08-2024 End: 05-08-2024 Emergency department patient visit MARCO PAZ Facility:[facility] Start: 05-06-2024 End: 05-06-2024 Patient encounter procedure Zachariah Currie MD Work Phone: OB/Gynecology Comment on above: Incomplete (Primary Dx); Threatened miscarriage Start: 05-06-2024 End: 05-06-2024 ambulatory SUSHIL VILLANUEVA Facility:[facility] Start: 05-05-2024 End: 05-05-2024 Emergency department patient visit ARLINE CORADO RETAIL COORDINATOR-ENVIRONMENTAL HEALTH AND SAFETY LEADER Facility:A Start: 05-02-2024 End: 05-07-2024 Telephone encounter Leti Aranda RETAIL COORDINATOR.CNM Work Phone: OB/Gynecology Comment on above: Results Start: 05-01-2024 End: 05-01-2024 ambulatory SUSHIL VILLANUEVA OB/Gynecology Start: 05-01-2024 End: 05-01-2024 Patient encounter procedure Leti Aranda RETAIL COORDINATOR.CNM Work Phone: OB/Gynecology Comment on above: Positive t est (Primary Dx); Threatened miscarriage; with uncertain dates in first trimester; Spotting affecting in first trimester Start: 04-28-2024 End: 04-28-2024 ambulatory SUSHIL VILLANUEVA Facility:[facility] Start: 04-28-2024 End: 04-28-2024 Patient encounter procedure Sushil Villanueva RETAIL COORDINATOR.ENVIRONMENTAL HEALTH AND SAFETY LEADER Work Phone: OB/Gynecology Comment on above: with uncer tain viability, single or unspecified fetus (Primary Dx); with uncertain dates in first trimester Start: 04-05-2024 End: 04-05-2024 ambulatory [facility] Facility:[facility] Start: 04-03-2024 End: 04-03-2024 Emergency department patient visit [facility] Facility:[facility] Start: 03-15-2024 End: 03-19-2024 ambulatory HIRA LANGLEY MD Facility:A Start: 03-15-2024 End: 03-15-2024 ambulatory HIRA LANGLEY MD Facility:A Start: 02-19-2024 End: 02-19-2024 ambulatory ARLINE CORADO RETAIL COORDINATOR-ENVIRONMENTAL HEALTH AND SAFETY LEADER Facility:A Start: 02-19-2024 End: 02-19-2024 Patient encounter procedure ARLINE CORADO RETAIL COORDINATOR-ENVIRONMENTAL HEALTH AND SAFETY LEADER [facility] Start: 02-05-2024 End: 02-09-2024 ambulatory ABDI LONDON RETAIL COORDINATOR-ENVIRONMENTAL HEALTH AND SAFETY LEADER Facility:A Start: 01-29-2024 End: 01-29-[address] JOSÉ MIGUEL MAGALLANES MD Facility:A Start: 01-15-2024 End: 01-15-2024 ambulatory MARCELO ISBELL DO Facility:A Start: 01-01-2024 End: 01-05-2024 ambulatory ERLINDA WILLINGHAM PA-C Facility:A Start: 01-01-2024 End: 01-01-2024 ambulatory ERLINDA PULIDO-C Facility:A Start: 12-13-2023 End: 12-13-2023 Emergency department patient visit MARCELO ISBELL Facility:[id number] Start: 12-11-2023 End: 12-12-2023 Emergency department patient visit MARCELO ISBELL Facility:[id number] Start: 12-09-2023 Emergency department patient visit Facility:[facility] Start: 12-09-2023 Admission to [facility] Gila Roth MD Work Phone: Neurosurgery Comment on above: Numbness (Primary Dx ) Start: 12-09-2023 Telemedicine consultation with patient Gila Roth MD Work Phone: Neurosurgery Start: 12-04-2023 End: 12-04-[address] JOSÉ MIGUEL MAGALLANES MD Facility:A Start: 12-04-2023 End: 12-08-[address] JOSÉ MIGUEL MAGALLANES MD Facility:A Start: 11-19-2023 End: 11-19-2023 ambulatory ABDI WHARTON Facility:A Start: 11-05-2023 End: 11-05-[address] JOSÉ MIGUEL MAGALLANES MD Facility:A Start: 10-16-2023 Emergency department patient visit MARCELO ISBELL Facility:[id number] Start: 10-14-2023 End: 10-15-2023 Emergency department patient visit Child Protective Investigator [facility] Start: 08-29-2023 End: 08-29-2023 ambulatory ERLINDA PULIDO-C Facility:A Start: 08-25-2023 Emergency department patient visit MARCELO ISBELL Facility:[id number] Start: 08-11-2023 End: 08-11-2023 Emergency department patient visit Child Protective Investigator [facility] Start: 05-12-2023 End: 05-12-2023 Emergency department patient visit Child Protective Investigator [facility] Start: 02-13-2023 End: 02-13-2023 Emergency department patient visit Child Protective Investigator [facility] Start: 09-26-2022 End: 09-27-2022 Emergency department patient visit MARCELO ROBLES [facility] Start: 09-26-2022 End: 09-26-2022 Emergency department patient visit Marcelo Robles MD Work Phone: [facility] ED Comment on above: Hypertension, unspec ified type (Primary Dx) Start: 09-25-2022 End: 09-25-2022 Emergency department patient visit Alvin Pryor [facility] Start: 03-05-2022 End: 03-08-2022 Evaluation and management of inpatient JOSSIE HAYES MD [facility] Start: 01-17-2022 End: 01-18-2022 Observation MICHI LEONARD DO [facility] Start: 12-26-2021 End: 12-26-2021 Subsequent hospital visit by physician ANNA GARCÍA Comment on above: RT LOWER LEG PAIN/TR IAGE Start: 12-06-2021 End: 12-06-2021 Patient encounter procedure GATITO ODOM DO [facility] Start: 11-29-2021 End: 11-29-2021 ambulatory NONE NONE Facility:[facility] Start: 08-07-2021 End: 08-07-2021 Emergency department patient visit NANDA TOLEDO DO [facility] Start: 05-18-2021 End: 05-18-2021 Emergency department patient visit DR JOSÉ MIGUEL MAGALLANES MD [facility] Start: 03-15-2021 End: 03-15-2021 Emergency department patient visit [facility] Emergency Dept Comment on above: Cough (Primary Dx); Vaginal discharge Start: 03-07-2021 End: 03-07-2021 Emergency department patient visit Isreal Kincaid MD Work Phone: [facility] Emergency Dept Comment on above: Ecstasy abuse (HCC) (Primary Dx); Acute cystitis with hematuria Procedures Date Procedure Procedure Detail Performing Clinician Start: 05-01-2024 Us pelvic nonobstetr ic real-time image complete Sushil Villanueva APRN.ENVIRONMENTAL HEALTH AND SAFETY LEADER Work Phone: Start: 04-28-2024 Antibody screen SUSHIL H BRIONNA Comment on above: Order Comment: Speci men Type: BLOOD SPECIMEN Ordering Facility: [facility] Address: [address] [place] [address] Performed By: #### T SPN #### [facility] CLIA [id number] [address] [place] [address] [place] Start: 04-28-2024 Us uterus l imited 1/> fetuses Sushil Villanueva APRN.ENVIRONMENTAL HEALTH AND SAFETY LEADER Work Phone: Start: 10-14-2023 Microscopic urinalysis Child Protective Investigator Start: 08-11-2023 Lumbar puncture usin g fluoroscopic guidance Child Protective Investigator Start: 08-11-2023 Microscopic urinalysis Child Protective Investigator Start: 05-12-2023 CT of head without contrast Child Protective Investigator Start: 05-12-2023 Lumbar puncture usin g fluoroscopic guidance Child Protective Investigator Start: 05-12-2023 Microscopic urinalysis Child Protective Investigator Start: 02-13-2023 Plain chest X-ray On Ca ll Start: 02-13-2023 Ultrasonography of deep vein Child Protective Investigator Start: 09-26-2022 Ct thorax w/contrast material Serena Kelly DO Work Phone: Start: 09-26-2022 End: 09-26-2022 Basic metabolic panel calcium total Serena Kelly DO Work Phone: Start: 09-25-2022 Plain chest X-ray Tod F ilmer Start: 09-25-2022 US scan venography o f upper limbs Tod Filmer Start: 03-15-2021 Radiologic exam ches t single view Carlitos Lemusjuan RETAIL COORDINATOR - ENVIRONMENTAL HEALTH AND SAFETY LEADER Work Phone: Start: 03-07-2021 Urnls dip stick/tabl et rgnt auto w/o microscopy Sherin Dawkins RETAIL COORDINATOR - ENVIRONMENTAL HEALTH AND SAFETY LEADER Work Phone: Start: 03-07-2021 Basic metabolic pane l calcium total Sherin Dawkins RETAIL COORDINATOR - ENVIRONMENTAL HEALTH AND SAFETY LEADER Work Phone: Start: 03-07-2021 Ecg routine ecg w/le ast 12 lds w/i&r Isreal Kincaid MD Work Phone: Start: 01-06-2019 Antibody screen Comment on above: Performed By: #### T &S #### [place] [id number] None (qualifier value) DR CARROLL MAGALLANES MD Plan of Treatment Date Care Activity Detail Author Start: 2070 RSV Vaccine (1 - 1-d ose 75+ series) RSV Vaccine (1 - 1-dose 75+ series) [facility] Start: 06-18-2029 Urine microalbumin profile DTaP,Tdap,Td Vaccine (9 - Td or Tdap) [facility] Start: 05-29-2024 DTaP/Tdap/Td vaccine (2 - Td or Tdap) DTaP/Tdap/Td vaccine (2 - Td or Tdap) [facility] Start: 05-26-2024 End: 05-26-2024 Patient encounter procedure 05/26/2024 1:10 PM EDT Routine Office Visit OB/Gynecology [address] [place] [address] Cheryl Ricardo MD [address] [place] [id number] NEw OB LMP 02/19 ?? OB/Gynecology Comment on above: NEw OB LMP 02/19 ?? Start: 05-14-2024 End: 05-14-2024 Patient encounter procedure 05/14/2024 1:30 PM EDT Office Visit OB/Gynecology [address] [place] [address] Zachariah Currie MD [address] [place] [address] IPAS f/u OB/Gynecology Comment on above: IPAS f/u Start: 05-06-2024 End: 05-06-2024 Patient encounter procedure 05/06/2024 2:30 PM EDT Routine Office Visit OB/Gynecology [address] [place] [address] Zachariah Currie MD [address] [place] [address] OB Routine OB/Gynecology Comment on above: OB Routine Start: 05-06-2024 End: 08-05-2024 CBC panel - Blood by Automated count COMPLETE BLOOD COUNT Lab Routine Threatened miscarriage Expected: 05/06/2024, Expires: 08/05/2024 [facility] Work Phone: Comment on above: Expected: 05/06/2024 , Expires: 08/05/2024 Start: 05-01-2024 End: 05-01-2024 Patient encounter procedure 05/01/2024 1:30 PM EDT Office Visit OB/Gynecology [address] [place] [address] Leti Aranda APRN.[facility] [address] [place] [address] US follow up OB/Gynecology Comment on above: US follow up Start: 05-01-2024 End: 05-01-2024 ambulatory 05/01/2024 1:00 PM EDT Procedure OB/Gynecology [address] [place] [address] with uncertain dates in first trimester [Z34.91] OB/Gynecology Comment on above: with uncer tain dates in first trimester [Z34.91] Start: 04-28-2024 End: 07-28-2024 Hemoglobin A1c in Blood [facility] Comment on above: Expected: 04/28/2024 , Expires: 07/28/2024 Start: 04-28-2024 End: 07-28-2024 TYPE + SCREEN [facility] Comment on above: Expected: 04/28/2024 , Expires: 07/28/2024 Start: 04-28-2024 End: 04-28-2025 US Pelvis PELVIC US [facility] Anc Imaging Routine with uncertain dates in first trimester Expected: 04/28/2024, Expires: 04/28/2025 [facility] Comment on above: Expected: 04/28/2024 , Expires: 04/28/2025 Start: 03-30-2024 Covid-19 Vaccine ( season) Covid-19 Vaccine ( season) [facility] Start: 03-30-2024 Influenza vaccination [facility] Start: 07-30-2023 Behavioral Health Screening Behavioral Health Screening [facility] Start: 05-12-2023 Bacteria identified in Urine by Culture Urine Culture [facility] Start: 03-30-2023 Covid-19 Vaccine ( season) Covid-19 Vaccine ( season) [facility] Start: 03-30-2022 Influenza vaccination INFLUENZ A (Season Ended) [facility] Start: 02-27-2022 Influenza vaccination Flu vaccine (# 1) [facility] Start: 01-06-2022 PAP TESTING PAP TESTING [facility] Start: 01-06-2022 Screening for malign ant neoplasm of cervix [facility] Start: 03-30-2021 Influenza vaccination Flu vaccine (# 1) [facility] Work Phone: Start: 2016 Screening for malign ant neoplasm of cervix Pap smear [employer] Start: 2014 Urine microalbumin profile DTAP,TDAP,TD (1 - Tdap) [facility] Start: 2013 Anxiety Screening Anxiety Screening [facility] Start: 2013 Depression Screening Depression Scre ening [facility] Start: 2013 Hepatitis C screening Hepatitis C sc reen [facility] Start: 11-11-2012 HPV Vaccine (2 - 3-d ose series) HPV Vaccine (2 - 3-dose series) [facility] Start: 2010 HIV screening HIV screen [facility] Start: 2009 PEDS TO ADULT TRANSITION ANNUAL ASSESSMENT PEDS TO ADULT TRANSITION ANNUAL ASSESSMENT [facility] Start: 2007 Adult depression screening assessment DEPRESSION SCREENING [facility] Start: 2007 COVID-19 Vaccine (1) COVID-19 Vaccin e (1) [facility] Work Phone: Start: 2007 Depression Screen Depression Screen [facility] Start: 2007 PEDS TO ADULT TRANSITION INITIAL DISCUSSION PEDS TO ADULT TRANSITION INITIAL DISCUSSION [facility] Start: 2006 HPV VACCINE (1 - 2-d ose series) HPV VACCINE (1 - 2-dose series) [facility] Start: 2001 PNEUMOCOCCAL (1 - PCV) PNEUMOCOCCAL (1 - PCV) [facility] Start: 2000 COVID-19 VACCINE (#1) COVID-19 VACCI NE (#1) [facility] Start: 1996 Varicella vaccine (1 of 2 - 2-dose childhood series) Varicella vaccine (1 of 2 - 2-dose childhood series) [facility] Start: 1995 COVID-19 Vaccine (#1) COVID-19 Vacci ne (#1) [facility] Bacteria identified in Urine by Culture URINE CULTURE Microbiology Routine with uncertain dates in first trimester 04/28/2024 12:14 PM EDT [facility] End: 03-15-2021 C. Trachomatis / N. Gonorrhoeae, DNA Probe C. Trachomatis / N. Gonorrhoeae, DNA Probe Microbiology STAT One Time for 1 Occurrences starting 03/15/2021 until 03/15/2021 [facility] Work Phone: Comment on above: One Time for 1 Occur rences starting 03/15/2021 until 03/15/2021 C. Trachomatis / N. Gonorrhoeae, DNA Probe C. Trachomatis / N. Gonorrhoeae, DNA Probe Microbiology STAT 03/15/2021 9:34 PM EDT [facility] Work Phone: End: 04-28-2025 Choriogonadotropin.beta subunit [Units/volume] in Serum or Plasma HCG QUANTITATIVE Lab Routine with uncertain dates in first trimester 2x per week for 8 Occurrences starting 04/28/2024 until 04/28/2025 [facility] Work Phone: Comment on above: 2x per week for 8 Oc currences starting 04/28/2024 until 04/28/2025 Choriogonadotropin.b eta subunit [Units/volume] in Serum or Plasma HCG QUANTITATIVE Lab Routine with uncertain dates in first trimester 04/28/2024 12:12 PM EDT [facility] EKG 12 Lead EKG 12 Lead ECG STAT 03/07/2021 12:24 AM EDT [facility] Work Phone: Patient Education [facility] End: 03-15-2021 Respiratory Panel, Molecular, with COVID-19 (Restricted: peds pts or suitable admitted adults) Respiratory Panel, Molecular, with COVID-19 (Restricted: peds pts or suitable admitted adults) Microbiology Routine One Time for 1 Occurrences starting 03/15/2021 until 03/15/2021 [facility] Work Phone: Comment on above: One Time for 1 Occur rences starting 03/15/2021 until 03/15/2021 Respiratory Panel, Molecular, with COVID-19 (Restricted: peds pts or suitable admitted adults) Respiratory Panel, Molecular, with COVID-19 (Restricted: peds pts or suitable admitted adults) Microbiology STAT 03/15/2021 9:34 PM EDT [facility] Work Phone: SURGICAL PATHOLOGY SURGICAL PATH OLOGY Lab Routine Threatened miscarriage 05/06/2024 4:56 PM EDT [facility] Immunizations Immunization Date Immunization Notes Care Provider Jaya hernandez 06-18-2019 tetanus toxoid, redu jose diphtheria toxoid, and acellular pertussis vaccine, adsorbed ARLINE CORADO RETAIL COORDINATOR-ENVIRONMENTAL HEALTH AND SAFETY LEADER [facility] 02-18-2019 hepatitis A vaccine, adult dosage ARLINE MICKIE RETAIL COORDINATOR-ENVIRONMENTAL HEALTH AND SAFETY LEADER [facility] 05-31-2014 pneumococcal polysaccharide vaccine, [address] JOSÉ MIGUEL MAGALLANES MD [facility] 05-29-2014 tetanus toxoid, redu jose diphtheria toxoid, and acellular pertussis vaccine, adsorbed DR JOSÉ MIGUEL MAGALLANES MD [facility] 10-14-2012 hepatitis A vaccine, pediatric dosage, unspecified formulation ARLINE MICKIE RETAIL COORDINATOR-ENVIRONMENTAL HEALTH AND SAFETY LEADER [facility] 10-14-2012 Human Papillomavirus Quadval ARLINE MICKIE RETAIL COORDINATOR-ENVIRONMENTAL HEALTH AND SAFETY LEADER [facility] 10-14-2012 meningococcal polysaccharide (groups A, C, Y and W-135) diphtheria toxoid conjugate vaccine (MCV4P) ARLINE MICKIE RETAIL COORDINATOR-ENVIRONMENTAL HEALTH AND SAFETY LEADER [facility] 10-14-2012 tetanus toxoid, redu jose diphtheria toxoid, and acellular pertussis vaccine, adsorbed ARLINE MICKIE RETAIL COORDINATOR-ENVIRONMENTAL HEALTH AND SAFETY LEADER [facility] 03-21-2000 measles/mumps/rubell a virus vaccine ARLINE MICKIE RETAIL COORDINATOR-ENVIRONMENTAL HEALTH AND SAFETY LEADER [facility] 03-21-2000 poliovirus vaccine, inactivated ARLINE MICKIE RETAIL COORDINATOR-ENVIRONMENTAL HEALTH AND SAFETY LEADER [facility] 04-06-1998 hepatitis B pediatri c vaccine ARLINE MICKIE RETAIL COORDINATOR-ENVIRONMENTAL HEALTH AND SAFETY LEADER [facility] 01-28-1997 measles/mumps/rubell a virus vaccine ARLINE MICKIE RETAIL COORDINATOR-ENVIRONMENTAL HEALTH AND SAFETY LEADER [facility] 01-28-1997 poliovirus vaccine, inactivated ALRINE MICKIE RETAIL COORDINATOR-ENVIRONMENTAL HEALTH AND SAFETY LEADER [facility] 1995 hepatitis B pediatri c vaccine ARLINE MICKIE RETAIL COORDINATOR-ENVIRONMENTAL HEALTH AND SAFETY LEADER [facility] 1995 hepatitis B pediatri c vaccine ARLINE MICKIE RETAIL COORDINATOR-ENVIRONMENTAL HEALTH AND SAFETY LEADER [facility] 1995 poliovirus vaccine, inactivated ARLINE MICKIE RETAIL COORDINATOR-ENVIRONMENTAL HEALTH AND SAFETY LEADER [facility] 1995 poliovirus vaccine, inactivated ARLINE MICKIE RETAIL COORDINATOR-ENVIRONMENTAL HEALTH AND SAFETY LEADER [facility] 1995 hepatitis B pediatri c vaccine ARLINE MICKIE RETAIL COORDINATOR-ENVIRONMENTAL HEALTH AND SAFETY LEADER [facility] 1995 hepatitis B pediatri c vaccine ARLINE MICKIE RETAIL COORDINATOR-ENVIRONMENTAL HEALTH AND SAFETY LEADER [facility] Payers Date Payer Category Payer Private Health Insurance [id number] 2023 Medicaid [facility] MEDICAID OF [place] [id number] 2023-Present [phone] [address] [place] [address] Medicaid [id number] 2023 Private Health Insurance [id number] 2020 Private Health Insurance [facility] [id number] 2020-Present [phone] [address] [place] [address] [id number]. [id number] 2018 Medicaid [facility] MEDICAID [facility] MEDICAID [id number] 2018-Present [phone] [address] [place] [address] Medicaid [id number]. [id number] 1995 Unknown [id number] 2.16.840.1.989545.3.579.2. 419 1995 Unknown [id number] 2.16840.1.036756.3.579.2. 627 1995 Unknown [id number] 2.840.1.686578.3.579.2. 62 1995 Unknown [id number] 2.840.1.037999.3.579.2. 62 1995 Unknown [id number] 2.840.1.455702.3.579.2. 62 1995 Unknown [id number] 2.840.1.749348.3.579.2. 62 1995 Unknown [id number] 2.840.1.217021.3.579.2. 627 1995 Unknown [id number] 2.840.1.115395.3.579.2. 627 1995 Unknown [id number] 2.16840.1.228016.3.579.2. 62 1995 Unknown [id number] 2.840.1.038580.3.579.2. 627 1995 Unknown [id number] 2.16840.1.151418.3.579.2. 62 1995 Unknown [id number] 2.16840.1.468553.3.579.2. 627 1995 Unknown [id number] 2.16840.1.508713.3.579.2. 627 1995 Unknown [id number] 2.840.1.581214.3.579.2. 627 1995 Unknown [id number] 2.840.1.169094.3.579.2. 627 1995 Unknown [id number] 2.840.1.331438.3.579.2. 1995 Unknown [id number] 2.840.1.423759.3.579.2. 62 1995 Unknown [id number] 2.840.1.202066.3.579.2. 1995 Unknown [id number] .840.1.545798.3.579.2. 1995 Unknown [id number] .840.1.404912.3.579.2. 627 1959 Self-pay Unknown [id number] .840.1.765331.3.579.2. 630 Unknown [id number] .840.1.721557.3.579.2. 630 Unknown [id number] .840.1.435573.3.579.2. 630 Unknown [id number] .840.1.055988.3.579.2. 630 Unknown [id number] 840.1.950995.3.579.2. 462 Unknown [id number] .840.1.124357.3.579.2. 462 Unknown [id number] .840.1.110540.3.579.2. 462 Unknown [id number] 2.840.1.815649.3.579.2. 462 Unknown [id number] 2.840.1.540651.3.579.2. 462 Unknown [id number] 840.1.402207.3.579.2. 462 Unknown [id number] 2.16.840.1.309795.3.579.2. 462 Unknown [id number] 2.16.840.1.806679.3.579.2. 462 Social History Date Type Detail Facility Start: 02-19-2018 End: 09-10-2018 Tobacco smoking status NHIS Never smoker [facility] Start: 09-10-2018 End: 06-24-2023 Tobacco use and exposure Never used [facility] Start: 09-10-2018 End: 05-01-2024 Alcohol intake Current drinker of alcohol (finding) [facility] Work Phone: Start: 1995 Sex Assigned At Not on file S [facility] Work Phone: Start: 09-16-2022 End: 09-26-2022 Exposure to SARS-CoV-2 (event) Not sure [facility] Start: 05-19-2020 End: 08-22-2024 Light tobacco smoker (finding) [facility] Sex Assigned At [facility] Start: 12-19-2018 [facility] Start: 10-22-2019 Alcohol intake Ex-drinker (finding) [facility] Start: 01-17-2022 End: 06-24-2023 Tobacco smoking status Ex-smoker (finding) [facility] History of tobacco use Current smoker [facility] History of tobacco use Cigarette Smoker [facility] Start: 06-24-2023 End: 04-28-2024 History of Social function [facility] Start: 06-24-2023 End: 04-28-2024 Tobacco use panel [facility] National Score (1-10 0), lower number is lower risk 75 [facility] Start: 06-08-2023 Alcohol Comment socially [facility] Has the electric, [employer] s, oil, or water company threatened to shut off services in your home in past 12Mo No [facility] (I/We) worried wheth er (my/our) food would run out before (I/we) got money to buy more. Never true [facility] Start: 12-20-2013 Sex Female (finding) [facility] Medical Equipment Procedure Code Equipment Code Equipment Origin al Text Equipment Identifier Dates TEST BLOOD SUGAR EVERY DAY Start: 2024 See Instructions , check BS daily, # 100 EA, 5 Refill(s), Pharmacy: [facility] #[id number], Type 2 diabetes mellitus, 178, cm, 03/15/24 14:17:00 EDT, Height, 104.8, kg, 03/15/24 14:17:00 EDT, Dosing Weight Start: 04-18-2024 See Instructions , BD VENANCIO 2 GEN PEN NDL [id number], # 100 EA, 5 Refill(s), Pharmacy: [facility] #[id number], 178, cm, 03/15/24 14:17:00 EDT, Height, 97, kg, 05/05/24 17:35:00 EDT, Dosing Weight Start: 05-12-2024 See Instructions , test BS daily, # 100 EA, 5 Refill(s), Pharmacy: [facility] #[id number], 177.8, cm, 02/19/24 15:03:00 EDT, Height, 93, kg, 02/05/24 15:51:00 EDT, Dosing Weight Start: 03-05-2024 Functional Status Date Assessment Result Facility 09-30-2024 Functional Status Independent [facility] 09-30-2024 Functional Status ID band on, Allergy Band on, Call device within reach, Bed in low position, Wheels locked, Upper/Half-Length side-rails up, Visitor at bedside, Safety level maintained [facility] 03-08-2022 Functional Status Sitting in bed , Remains in NICU [facility] 03-08-2022 Functional Status [facility] 03-08-2022 Functional Status [facility] 2022 Functional Status [facility] 03-05-2022 Functional Status [facility] 03-05-2022 Functional Status [facility] 01-18-2022 Functional Status Ambulation in Room [facility] 01-17-2022 Functional Status Home independently [facility] 01-17-2022 Functional Status Rooming in [facility] 01-17-2022 [facility] Status Date Assessment Result Facility 09-30-2024 Mental Status Orientation Oriented x 4 [facility] 09-30-2024 Mental Status [facility] Clinical Notes 03-07-2021 to 09-30-2024 Irma Lin RN - 05/06/2024 3:54 PM EDTPatient Irma Centeno RN - 05/06/2024 3:54 PM TAMMYTRZachariah mejia MD - 05/06/2024 2:58 PM Magda Jeff MD - 05/01/2024 8:36 PM EDT Note Date & Type Note Facility 09-30-2024 Hospital Discharg e instructions Patient Education 09/30/2024 11:35:01 Headache, Unspecified Headache, Unspecified A number of things can cause headaches. The cause of your headache isn t clear. But it doesn t seem to be a sign of any serious illness. Headache affects almost everyone at some time. It is the most common reason people miss days from work or school. You could have a tension headache or a migraine headache. Stress can cause a tension headache. This can happen if you tense the muscles of your shoulders, neck, and scalp without knowing it. If this stress lasts long enough, you may develop a tension headache. It is not clear why migraines occur, but certain things called triggers can raise the risk of having a migraine attack. Migraine triggers may include emotional stress or depression, or by hormone changes during the menstrual cycle. Other triggers include control pills and other medicines, alcohol or caffeine, foods with tyramine (such as aged cheese, wine), eyestrain, weather changes, missed meals, and lack of sleep or oversleeping. Other causes of headache include: Viral illness with high fever Head injury with concussion Sinus, ear, or throat infection Dental pain and jaw joint (TMJ) pain More serious but less common causes of headache include stroke, brain hemorrhage, brain tumor, meningitis, and encephalitis. Home care Follow these tips when taking care of yourself at home: Don t drive yourself home if you were given pain medicine for your headache. Instead, have someone else drive you home. Try to sleep when you get home. You should feel much better when you wake up. Apply heat to the back of your neck to ease a neck muscle spasm. Take care of a migraine headache by putting an ice pack on your forehead or at the base of your skull. If you have nausea or vomiting, eat a light diet until your headache eases. If you have a migraine headache, use sunglasses when in the daylight or around bright indoor lighting until your symptoms get better. Bright glaring light can make this type of headache worse. Follow-up care Follow up with your healthcare provider, or as advised. Talk with your provider if you have frequent headaches. He or she can help figure out a treatment plan. By knowing the earliest signs of headache, and starting treatment right away, you may be able to stop the pain yourself. When to seek medical advice Call your healthcare provider right away if any of these occur: Your head pain suddenly gets worse after sexual intercourse or strenuous activity Your head pain doesn t get better within 24 hours You aren t able to keep liquids down (repeated vomiting) Fever of 100.4 F (38 C) or higher, or as directed by your healthcare provider Stiff neck Extreme drowsiness, confusion, or fainting Dizziness or dizziness with spinning sensation (vertigo) Weakness in an arm or leg or one side of your face You have trouble talking or seeing [id number] [employer]. [address] [place] [id number]. All rights reserved. This information is not intended as a substitute for professional medical care. Always follow your healthcare professional's instructions. Follow Up Care 09/30/2024 10:02:36 With:[place], [place] Address: When:2-4 days With:ARLINE CORADO RETAIL COORDINATOR-ENVIRONMENTAL HEALTH AND SAFETY LEADER Address: [address] [place] [phone] When:2-4 days [facility] 09-30-2024 Note Discharge Instructions Thank you for allowing [facility] to assist you with your healthcare needs. The following is important discharge information regarding your hospital visit. Diagnosis from Today's Visit Headache What to Do Next Instructions from Your Care Team No qualifying data available. Post Acute Orders No qualifying data available. You Need to Schedule the Following Appointments Follow Up with [facility] [place] When:Within 2-4 days Follow Up with ARLINE CORADO When:Within 2-4 days Where:[address] [place] [address] [place] [address]- [phone] Allergies Vicodin Medications Please ask your primary doctor or pharmacist before taking any other medication not listed, including over the counter drugs, herbal medications, vitamins and or supplements as they may interact with your home medications. What How Much When Why Instructions Last Dose New APAP/ butalbital/ caffeine (Fioricet oral capsule - use generic Fioricet tablet) 1 cap by mouth Every 4 hours as needed for as needed Duration: 7 Days Printed Prescription Unchanged acetaminophen (Tylenol) Unchanged DME (Blood Glucose Test Machine) See instructions Type 2 diabetes mellitus 1 glucometer Unchanged DME (Blood Glucose Test Strips) See instructions Type 2 diabetes mellitus check BS daily Unchanged DME (Dexcom G7 [place]) See instructions Type 2 diabetes mellitus Use reader daily for blood sugar checks. Keep reader within 20 feet of the sensor and transmitter Unchanged DME (Dexcom G7 Sensor) See instructions Type [address] once sensor to the back of the upper arm every 10 days. Use reader or phone lisette for daily blood sugar checks. 1 month supply. Unchanged DME (DME MISCellaneous) See instructions BD VENANCIO 2 GEN PEN NDL [id number] Unchanged DME (Lancets) See instructions test BS daily Unchanged ferrous sulfate (ferrous sulfate 325 mg (65 mg elemental iron) oral delayed release tablet) 1 tab(s) by mouth Two (2) times a day Duration: 30 Days Unchanged ibuprofen (Advil) Unchanged metFORMIN (metFORMIN 500 mg oral tablet (IR)) 1 tab(s) by mouth Once a day Duration: 30 Days Please take this list to your next doctor s visit. Bring all medications you take, including over the counter medications, herbals and other supplements with you to your doctor s visit. Patients and families are reminded to discard old lists and to update any records with all medication providers or retail pharmacies. Education Materials Headache, Unspecified A number of things can cause headaches. The cause of your headache isn t clear. But it doesn t seem to be a sign of any serious illness. Headache affects almost everyone at some time. It is the most common reason people miss days from work or school. You could have a tension headache or a migraine headache. Stress can cause a tension headache. This can happen if you tense the muscles of your shoulders, neck, and scalp without knowing it. If this stress lasts long enough, you may develop a tension headache. It is not clear why migraines occur, but certain things called triggers can raise the risk of having a migraine attack. Migraine triggers may include emotional stress or depression, or by hormone changes during the menstrual cycle. Other triggers include control pills and other medicines, alcohol or caffeine, foods with tyramine (such as aged cheese, wine), eyestrain, weather changes, missed meals, and lack of sleep or oversleeping. Other causes of headache include: Viral illness with high fever Head injury with concussion Sinus, ear, or throat infection Dental pain and jaw joint (TMJ) pain More serious but less common causes of headache include stroke, brain hemorrhage, brain tumor, meningitis, and encephalitis. Home care Follow these tips when taking care of yourself at home: Don t drive yourself home if you were given pain medicine for your headache. Instead, have someone else drive you home. Try to sleep when you get home. You should feel much better when you wake up. Apply heat to the back of your neck to ease a neck muscle spasm. Take care of a migraine headache by putting an ice pack on your forehead or at the base of your skull. If you have nausea or vomiting, eat a light diet until your headache eases. If you have a migraine headache, use sunglasses when in the daylight or around bright indoor lighting until your symptoms get better. Bright glaring light can make this type of headache worse. Follow-up care Follow up with your healthcare provider, or as advised. Talk with your provider if you have frequent headaches. He or she can help figure out a treatment plan. By knowing the earliest signs of headache, and starting treatment right away, you may be able to stop the pain yourself. When to seek medical advice Call your healthcare provider right away if any of these occur: Your head pain suddenly gets worse after sexual intercourse or strenuous activity Your head pain doesn t get better within 24 hours You aren t able to keep liquids down (repeated vomiting) Fever of 100.4 F (38 C) or higher, or as directed by your healthcare provider Stiff neck Extreme drowsiness, confusion, or fainting Dizziness or dizziness with spinning sensation (vertigo) Weakness in an arm or leg or one side of your face You have trouble talking or seeing [id number] [employer]. [address] [place] [address]. All rights reserved. This information is not intended as a substitute for professional medical care. Always follow your healthcare professional's instructions. Additional Information VACCINATE! IT SAVES LIVES! Members of the community who have not yet received the COVID-19 vaccine and would like to receive it can visit one of [facility] vaccine clinics. There are many vaccine clinic locations within the [facility]. For locations and available times, please visit www.gettheshot.coronavirus.[place] .gov/. It is important to note that some COVID mobile vaccine clinics are held outdoors and may be canceled in rainy or stormy conditions. To learn more about pediatric vaccinations (ages 5-11), we invite you to visit the [facility] webpage. https://www.[email or web address].org/ pages/8316-Bueje-Tpqaikkpoxr-Fr qsgczkku-Lqjwd-Xsewtozss.html To learn more about the COVID-19 vaccine, we invite you to visit the CDC website for a list of frequently asked questions. https://www.cdc.gov/coronavirus /2019-ncov/vaccines/faq.html [facility] [employer] Patient Portal Access Instructions: Stay connected with your healthcare team and access your personal medical information anytime with the [facility] Patient Portal. If you would like a full copy of your medical records please contact the [facility] Medical Records Department Sunday through Sunday between 8a.m. and 4:30p.m. Please follow the directions below to access the portal: 1.Access the email account you provided upon registration to the [facility].2.Look for an invitation email from [facility].3.Open the email and access the invitation link: Accept Invitation to [facility]4.Fill in the required french to create your account. Sign into www.[email or web address] with your username and password that you created in the above steps to stay up to date. You can then view a summary of results, a summary of your visits, and the ability to download your summaries to your computer or send the information securely to a physician. Remember that your healthcare information is confidential, so carefully consider who you will allow to register on the [employer] Patient Portal for access to your information. You can also access the [employer] Patient Portal on the [employer] lisette. Simply click on Health Records under Health Data and then click on the [employer] logo. HOW TO SAFELY DISPOSE OF PRESCRIPTION MEDICATIONS Please use one of the following methods to safely dispose of your unused medications. 1.Use a drug disposal kit: the drug disposal pouch allows you to safely discard your old and unused drugs. Ask your nurse to give you one when you are discharged.2.Visit a local take-back location: Many local pharmacies and police departments have programs that collect old and unwanted prescription drugs. Call your local pharmacy or go to http://Z[employer]/3T6Ig9c to find one close to you.3.Make use of household items: Use cat litter or old coffee grounds to dispose medications if other options are not available. Mix your drugs with these household products, seal them in an airtight container and throw it into the garbage. Call [facility]: [phone] to be sure your drugs can be disposed of in this way. Some medicines may require a different approach.4.Never flush your medications down the toilet. IF YOU HAVE BEEN PRESCRIBED AN OPIOIDS FOR PAIN If you have been prescribed an opioid (such as hydrocodone, oxycodone or morphine), it is critical to understand the possible side effects and risks of opioid pain medications. Even when taken as directed, opioids can have several side effects including: Tolerance, meaning you might need to take more of a medication for the same pain relief. Nausea, vomiting and/or constipation. Sleepiness, dizziness, dry mouth, confusion, depression or itching. Physical dependence, meaning you have withdrawal symptoms when a medication is stopped ? this can develop within a few days. KNOW YOUR RESPONSIBILITIES It is important to know exactly how much and how often to take the opioid pain medications you are prescribed. Never take opioids in higher amounts or more often than prescribed. Do not combine opioids with alcohol or other drugs that cause drowsiness, such as benzodiazepines, also known as benzos, including diazepam and alprazolam, muscle relaxants or sleep aids. Never sell or share prescription opioids. This is illegal. Store opioids in a secure place and out of reach of others (including children, family, friends and visitors). The last page(s) of this document has been signed and retained as a CHART COPY Signatures Patient Education Materials Headache, Unspecified Medication Leaflets My discharge plan and instructions have been reviewed and explained to me and I,LISA MESA understand my current condition and have read and understand these discharge instructions. I have received a written copy of the plan/instructions. If I have questions, I am aware that I should contact my doctor. Patient/Marinator Signature: Date/Time: Relationship to Patient: Witness Name/Signature: Date/Time: [facility] 05-06-2024 Nurse Note Pre Procedure Assessment: Lisa Mesa is a 29 year old here for an BRYANNA procedure. Patient's last menstrual period was Patient's last menstrual period was 02/18/2024 (within days). (approximate). Reason for procedure: Missed Anxiolytic Checklist Has ride home? Yes Current use of prescribed or non-prescribed opioids or benzos: No Medications: Patient self-administered and Provided by office:Toradol 60 mg IM Blood Type: O Hemoglobin: Hemoglobin Date Value Ref Range Status 04/28/2024 11.8 11.5 - 15.5 g/dL Final Rhophylac Administered:No Procedure start time: 1625 Procedure end time: 1635 Post Procedure Assessment: Time of first post-procedure assessment: 1635 Vitals: BP 118/84 HR 94 SpO2 100 RR 20 Bleeding:Light Pain ratin/10 Time of second post-procedure assessment: 1655 Vitals: BP 114/72 HR 97 SpO2 99 RR 20 Bleeding:Light Pain Ratin/10 Irma Lin RN [facility] 05-06-2024 Instructions Deana Sethi RN - 05/06/2024 3:54 PM EDT Information and Instructions: After a Manual Uterine Aspiration (IPAS) Procedure Bleeding Most people have some bleeding after an aspiration procedure. The amount differs for each everyone, ranging from no bleeding to moderate period-like bleeding and lasting for a few days to 2-6 weeks. It is normal to have blood clots when you stand up or use the bathroom during the first few days. It is ok to be as active as you feel ready to be. You may notice more bleeding and cramping during activity. Please call if you are completely soaking through a pad every hour for 2 hours, or passing multiple large clots or larger and larger clots. Cramping Most women have some cramping after the procedure. The amount of discomfort varies, as everyone experiences pain in a different way. Some women find that a heating pad or hot water bottle on the stomach or back helps. If you don t have a heating pad, put some rice into a sock and heat it in the microwave, but beware, it s hot! You may also take ibuprofen (Motrin/ Advil) or naproxen (Aleve). If you can t take either of those medications you may use acetaminophen (Tylenol). Please call if you have severe pain or cramps that are not relieved by the pain medication. Fever Please call if your temperature is 100.4 degrees or higher for more than 2 hours. Fever can be a sign of infection, so call your doctor if you are feeling sick. You may have received a medication called misoprostol, which can cause a fever on the day of your procedure that goes away on it's own and is not concerning. symptoms You may have symptoms such as nausea, breast tenderness, or fatigue that last for a few days after the procedure. You may also notice some nipple discharge or breast swelling. If this occurs, wear a supportive bra and avoid stimulation. You may also use a cold compress. Your test may remain positive for up to 4 weeks. Please call if you have symptoms that last longer than 7 - 10 days. control For most people, it is physically possible (though unlikely) to become in the next 2 - 4 weeks, so it is important to start a control method if you are not planning a right away. Please discuss this with your provider if you have not already chosen a method. If you would like to become soon after this procedure, please discuss this with your doctor. Follow up Most women do not need a follow up appointment. Your doctor may recommend one, or you may choose to schedule one if you have any concerns, problems, or questions. Please do not put anything in your vagina for 1 week (no vaginal intercourse, toys, tampons, or douching). Do not swim or use hot tubs for 1 week. Baths by yourself (do not share water for 2 weeks) and showers are OK. Important Phone Numbers: [facility] Appointments in Logistics/Shipper ( Early Assessment Clinics) Tiffany Cormier [facility] at [phone] [facility] at [phone] [facility] at [phone] After 4:30 PM or on weekends, you may reach the on-call Logistics/Shipper by calling the clinic where you were seen. This will automatically transfer you to a contracted answering service, who will then page the appropriate provider. Most calls are returned within 15-20 minutes depending on other direct patient care. When to call the doctor: If your temperature is 100.4 degrees or higher for more than 2 hours. If you have heavy bleeding and soak through more than 2 pads in an hour for 2 hours in a row. If you have severe pain or cramps that are not relieved by the pain medication. LOSS RESOURCES Physical recovery from loss from a spontaneous miscarriage, ectopic , D&C, or a D&E may take several weeks. However, emotional recovery can take longer, and is individualized to each person. Many people have different feelings and experiences with loss or termination. Grief is a normal part of the healing process. Taking time to heal both physically and emotionally after a loss is important. Above all, don t blame yourself. Counseling is available to help you cope with your loss. A loss support group might also be a valuable resource to you and your partner. ONLINE RESOURCES Unspoken Grief: an online miscarriage support resource for miscarriage, stillbirth and loss unspokengrief.org A Heartbreaking Choice: support for diagnosis or termination for medical reasons. http://www.Simple Beat .[employer]/ [facility]: ending a for a abnormality http://www.healthtalkonline.org /Pregnancy_children/Ending_a_pr egnancy_for_fetal_abnormality Ending a Wanted : support for patients and families ending a after or maternal medical diagnosis https://endingawantedpregnancy. [employer] Defending Terese: one person's story about loss and collected resources. http://www.[employer]uora [employer]aya Gift: headquarters in [place] but with online support group https://www.[employer]/inf hpa-qqot-cdlkyqr-groups.html LOCAL RESOURCES Love Lives On, [facility] https://my.[facility].org/ locations/[facility]/gu [facility]-services/support Jemal(Families Experiencing Early Loss) [facility] https://consultqd.[facility].org/rtdrarlbo-pufragdmg-bmjg gygvskd-vpqjuty-eojmomtq-grievi ng-families/ [facility] - counseling services [phone] or toll free at [phone] [facility] Support Groups (not specific to loss) https://my.[facility].org/ patients/information/bereavemen t/support-groups [facility] Counselors with experience with families facing the loss of a baby before . This service may be covered by your insurance. If not, [facility] will not turn anyone away because of inability to pay. or [phone] Ramirez Lozano, local counselor, not associated with [facility] [phone] Some of our families have recommended Ramirez Lozano as he specializes in helping families who have had or are facing a loss. This may be covered by your insurance, if not, a sliding scale payment plan is available. BOOKS Our Heartbreaking Choices: Forty-Six Women Share Their Stories of Interrupting a Much-Wanted , By Gabby Carrington Silent Sorrow: Loss-Guidance and Support for You and Your Family, By Marie Ndiaye and Babar Cevallos Unspeakable Losses: Healing from Miscarriage, , and other Loss, By Arline Moore Empty Cradle, Broken Heart: Surviving the of your Baby, By Tamar Meza Empty Arms: Coping with Miscarriage, Stillbirth, and , By Mynor Aggarwal I Love You Still: A Memorial Baby Book, By Katie Mukherjee Understanding Your Grief: Ten Essential Touchstones for Finding Hope and Healing Your Heart, By Pedro Beckwith BOOKS FOR CHILDREN We Were Gonna Have a Baby, But We had an Clifford Instead, By Gricel Draper My Sibling Still, By Toyin Ni The Goodbye Book, By Brad Busch Something Happened, By Carolyn Rea No New Baby, By Kyra Gallardo The Invisible String, By Duane Ramos Our Baby , by Silvia Cordero (two books, one for surgical termination and one for induction of labor) documented in this encounter [facility] 05-06-2024 Nurse Note Pre Procedure Assessment: Lisa Mesa is a 29 year old here for an BRYANNA procedure. Patient's last menstrual period was Patient's last menstrual period was 02/18/2024 (within days). (approximate). Reason for procedure: Missed Anxiolytic Checklist Has ride home? Yes Current use of prescribed or non-prescribed opioids or benzos: No Medications: Patient self-administered and Provided by office:Toradol 60 mg IM Blood Type: O Hemoglobin: Hemoglobin Date Value Ref Range Status 04/28/2024 11.8 11.5 - 15.5 g/dL Final Rhophylac Administered:No Procedure start time: 162 Procedure end time: 1635 Post Procedure Assessment: Time of first post-procedure assessment: 1635 Vitals: BP 118/84 HR 94 SpO2 100 RR 20 Bleeding:Light Pain ratin/10 Time of second post-procedure assessment: 1655 Vitals: BP 114/72 HR 97 SpO2 99 RR 20 Bleeding:Light Pain Ratin/10 Irma Lin RN documented in this encounter [facility] 05-06-2024 Note HNO ID: [id number] Author: ZACHARIAH CURRIE MD Service: ? Author Type: Physician Type: Progress Notes Filed: 05/07/2024 10:35 Note Text: Lisa Mesa is a 29 year old female who presents for problem visit for vaginal bleeding, falling HCG levels. Patient's last menstrual period was 02/18/2024 (within days). Last week was seen for this and dx w/ SAB. Last night started bleeding and went to [facility] ED but long wait so went to [place] ED and they offered patient to go to [facility] at [facility] or f/u in office. Patient was d/jose home to f/u today. Having waves of cramping nad passing clots, bleeding heavier than a period. Soaked through pads last night then it slowed and passed more clots. OB History T3 L3 SAB0 IAB0 Ectopic0 Multiple0 Live Births3 Research Quality Assurance Specialist History LMP: 02/18/2024 (Within Days), Recent Age at Menarche: Age at First : Age at Menopause: Research Quality Assurance Specialist History Comments: Sexual Activity: Yes; Male Contraception: No contraception data on record PAST MEDICAL HISTORY Diagnosis Date Anemia previous Diabetes mellitus (HCC) 2023 Headaches History of gestational diabetes 2021 History of sexually transmitted disease PAST SURGICAL HISTORY Procedure Laterality Date NONE NONE FAMILY HISTORY Problem Relation Age of Onset Diabetes Mother Cancer Mother Throat Leukemia Mother No Known Problems Father Diabetes Sister other (Epilepsy) Sister Social History Tobacco Use Smoking status: Former Types: Cigarettes Smokeless tobacco: Never Vaping Use Vaping status: Never Used Substance Use Topics Alcohol use: Yes Comment: socially Drug use: Never Current Outpatient Medications Medication Sig ONETOUCH ULTRA TEST test strip TEST BLOOD SUGAR EVERY DAY ferrous sulfate 325 mg (65 mg iron) EC tablet Take 325 mg by mouth. vit no.124/iron/folic ( VITAMIN ORAL) Take 1 tablet by mouth once daily. metFORMIN (GLUCOPHAGE) 500 mg tablet Take 1 tablet by mouth daily with breakfast. amLODIPine (NORVASC) 5 mg tablet Take 1 tablet by mouth once daily. (Patient not taking: Reported on 05/06/2024) No current facility-administered medications for this visit. Allergies As of Date: 05/06/2024 Allergen Noted Reaction ACETAMINOPHEN 06/09/2021 Hives HYDROCODONE 06/09/2021 Hives HYDROCODONE-ACETAMINOPHEN 03/16/2022 Hives Fully Assessed 05/06/2024 REVIEW OF SYSTEMS denies CP/SOB/CP or palpitations, fever or chills. Allergies and current medication updated:Yes SENSITIVE EXAM: The sensitive examination was discussed with the Patient or Patient's Authorized Marinator. As applicable, any other physician, advance practice provider, medical student, or other health professional student that will be observing or involved in the sensitive examination for educational or training purposes was discussed with the Patient or Authorized Marinator. The Patient or Authorized Marinator has agreed to proceed with the sensitive examination. (Sensitive examination includes inspection and/or palpation of the breasts, pelvis, prostate and anorectal regions). EXAM: Wt 212 lb (96.2kg) LMP 02/18/2024 GENERAL: in pain, female in mild distress ABDOMEN: soft, non-tender, and no masses PELVIC: external genitalia normal, normal Bartholin's glands, urethra, Chatmoss's glands, no vulvar lesions, no cervical lesions, good vaginal support, normal appearing perineal body and perianal region, cervix dilated, large clots in vault, approx 100 cc cleared out and on pads. Some active bleeding. NO POCs visible at os. TVUS done- 3 x 5 cm heterogeneous debris noted. BIMANUAL: anteverted, no adnexal masses, and appropriately tender ASSESSMENT AND PLAN: incomplete sab, active bleeding R/B/A to suction DANDC in ED vs in office IPAS reviewed, questions answered, decision for surgery today. Quant pending, will not send for CBC due to timing and need to get procedure done by end of day. UNIVERSAL PROTOCOL / SAFETY CHECKLIST Procedure to be Performed: IPAS in office for miscarriage Sign In: A Moment of CARE was completed. Personnel directly involved with the procedure wore the appropriate PPE (Personal Protective Equipment). Patient/Surrogate Stated/Verified: PATIENT VERIFIED(optional for EMERGENT procedures): Patient name, Date of , Relevant allergies, and The intended procedure Time Out Communication: Intended patient and procedure match the source documents. Consent documented and matches the intended procedure. Relevant labs, photos, and/or imaging studies have been reviewed. No implant(s) inserted. Sign Out: SIGN OUT (optional for EMERGENT procedures): All specimen containers correctly labeled. All instruments, equipment, possible retained foreign bodies accounted for. Post-procedure follow-up management communicated and Plan of Care Visit completed when applicable. Zachariah Currie MD Procedure note (more content not included)... [facility] 05-06-2024 History of Presen t illness Narrative Lisa Mesa is a 29 year old female who presents for problem visit for vaginal bleeding, falling HCG levels. Patient's last menstrual period was 02/18/2024 (within days). Last week was seen for this and dx w/ SAB. Last night started bleeding and went to [facility] ED but long wait so went to [facility] ED and they offered patient to go to [facility] at [facility] or f/u in office. Patient was d/jose home to f/u today. Having waves of cramping nad passing clots, bleeding heavier than a period. Soaked through pads last night then it slowed and passed more clots. OB History T3 L3 SAB0 IAB0 Ectopic0 Multiple0 Live Births3 Research Quality Assurance Specialist History LMP: 02/18/2024 (Within Days), Recent Age at Menarche: Age at First : Age at Menopause: Research Quality Assurance Specialist History Comments: Sexual Activity: Yes; Male Contraception: No contraception data on record PAST MEDICAL HISTORY Diagnosis Date Anemia previous Diabetes mellitus (HCC) 2023 Headaches History of gestational diabetes 2021 History of sexually transmitted disease PAST SURGICAL HISTORY Procedure Laterality Date NONE NONE FAMILY HISTORY Problem Relation Age of Onset Diabetes Mother Cancer Mother Throat Leukemia Mother No Known Problems Father Diabetes Sister other (Epilepsy) Sister Social History Tobacco Use Smoking status: Former Types: Cigarettes Smokeless tobacco: Never Vaping Use Vaping status: Never Used Substance Use Topics Alcohol use: Yes Comment: socially Drug use: Never Current Outpatient Medications Medication Sig [employer] (Group)TOUCH ULTRA TEST test strip TEST BLOOD SUGAR EVERY DAY ferrous sulfate 325 mg (65 mg iron) EC tablet Take 325 mg by mouth. vit no.124/iron/folic ( VITAMIN ORAL) Take 1 tablet by mouth once daily. metFORMIN (GLUCOPHAGE) 500 mg tablet Take 1 tablet by mouth daily with breakfast. amLODIPine (NORVASC) 5 mg tablet Take 1 tablet by mouth once daily. (Patient not taking: Reported on 05/06/2024) No current facility-administered medications for this visit. Allergies As of Date: 05/06/2024 Allergen Noted Reaction ACETAMINOPHEN 06/09/2021 Hives HYDROCODONE 06/09/2021 Hives HYDROCODONE-ACETAMINOPHEN 03/16/2022 Hives Fully Assessed 05/06/2024 REVIEW OF SYSTEMS denies CP/SOB/CP or palpitations, fever or chills. Allergies and current medication updated:Yes SENSITIVE EXAM: The sensitive examination was discussed with the Patient or Patient's Authorized Marinator. As applicable, any other physician, advance practice provider, medical student, or other health professional student that will be observing or involved in the sensitive examination for educational or training purposes was discussed with the Patient or Authorized Marinator. The Patient or Authorized Marinator has agreed to proceed with the sensitive examination. (Sensitive examination includes inspection and/or palpation of the breasts, pelvis, prostate and anorectal regions). EXAM: Wt 212 lb (96.2kg) LMP 02/18/2024 GENERAL: in pain, female in mild distress ABDOMEN: soft, non-tender, and no masses PELVIC: external genitalia normal, normal Bartholin's glands, urethra, Chatmoss's glands, no vulvar lesions, no cervical lesions, good vaginal support, normal appearing perineal body and perianal region, cervix dilated, large clots in vault, approx 100 cc cleared out and on pads. Some active bleeding. NO POCs visible at os. TVUS done- 3 x 5 cm heterogeneous debris noted. BIMANUAL: anteverted, no adnexal masses, and appropriately tender ASSESSMENT AND PLAN: incomplete sab, active bleeding R/B/A to suction D&C in ED vs in office IPAS reviewed, questions answered, decision for surgery today. Quant pending, will not send for CBC due to timing and need to get procedure done by end of day. UNIVERSAL PROTOCOL / SAFETY CHECKLIST Procedure to be Performed: IPAS in office for miscarriage Sign In: A Moment of CARE was completed. Personnel directly involved with the procedure wore the appropriate PPE (Personal Protective Equipment). Patient/Surrogate Stated/Verified: PATIENT VERIFIED(optional for EMERGENT procedures): Patient name, Date of , Relevant allergies, and The intended procedure Time Out Communication: Intended patient and procedure match the source documents. Consent documented and matches the intended procedure. Relevant labs, photos, and/or imaging studies have been reviewed. No implant(s) inserted. Sign Out: SIGN OUT (optional for EMERGENT procedures): All specimen containers correctly labeled. All instruments, equipment, possible retained foreign bodies accounted for. Post-procedure follow-up management communicated and Plan of Care Visit completed when applicable. Zachariah Currie MD Procedure note: Speculum was placed in the vagina. After prepping the cervix with betadine paracervical block was performed using 10cc of 1% lidocaine with 1:100,000 epi. Cervix was grasped with single tooth tenaculum. Using sterile technique, the Manual Vacuum Aspiration device with size 8 cannula was inserted into the uterus and contents were evacuated. Post-procedure ultrasound confirmed no retained tissue. Post-procedure vital signs were obtained and stable Patient tolerated procedure well. PLAN: Patient was advised to observe for signs and symptoms of infection including but not limited to fever, malodorous vaginal discharge and/or pain. Bleeding expectations were reviewed. Follow up: 1-2 weeks or prn Zachariah Currie MD documented in this encounter [facility] 05-05-2024 Telephone encounter Note Spoke with patient. She will have another HCG level drawn today since she has an appointment with RR on Sunday. Bleeding a little more. Changing a pad every 2-3 hours for comfort. Not soaking a pad. Scarlett Robledo, TRUMAN [facility] 05-05-2024 Miscellaneous Notes Spoke with patient. She will have another HCG level drawn today since she has an appointment with RR on Sunday. Bleeding a little more. Changing a pad every 2-3 hours for comfort. Not soaking a pad. Scarlett Robledo RN CP notified Pt. Please leave phone note open to f/u on HCG results. Irma Lin RN ----- Message from Leti Aranda APRN.CNM sent at 05/02/2024 1:12 PM EDT ----- HCG level is decreasing. Patient aware that she needs to complete follow up levels. Leti Aranda APRN.CNM documented in this encounter [facility] 05-02-2024 Telephone encounter Note CP notified Pt. Please leave phone note open to f/u on HCG results. Irma Lin RN [facility] 05-02-2024 Telephone encounter Note ----- Message from Leti Aranda APRN.CNM sent at 05/02/2024 1:12 PM EDT ----- HCG level is decreasing. Patient aware that she needs to complete follow up levels. Leti Aranda APRN.CNM [facility] 05-01-2024 Note HNO ID: [id number] Author: MAGDA MOSCOSO MD Service: ? Author Type: Physician Type: Progress Notes Filed: 05/01/2024 20:43 Note Text: Lisa Mesa is a 29 year old female who presented for home school liaison officer ultrasound today. Encounter Diagnosis ICD-10-CM 1. with uncertain dates in first trimester Z34.91 Please see report under imaging tab. Magda Moscoso MD May 01, 2024 8:37 PM [facility] 05-01-2024 History of Presen t illness Narrative Lisa Mesa is a 29 year old female who presented for home school liaison officer ultrasound today. Encounter Diagnosis ICD-10-CM 1. with uncertain dates in first trimester Z34.91 Please see report under imaging tab. Magda Moscoso MD May 01, 2024 8:37 PM documented in this encounter [facility] 05-01-2024 Note HNO ID: [id number] Author: LETI ARANDA APRN.CNM Service: ? Author Type: Terrazzo Supervisor Type: Progress Notes Filed: 05/01/2024 14:31 Note Text: Lisa Mesa is a 29 year old female who presents for follow up visit. HPI: Positive test in ED on 04/03/24. At that time and ultrasound showed a possible small gestational sac with NO pole or yolk sac. Patient having HCG levels drawn and returned today for a formal ultrasound for viability. TODAY: Small, abnormally shaped gestational sac visualized with NO pole or yolk sac. Patient reports that she started spotting and cramping this morning. Research Quality Assurance Specialist History LMP: 02/18/2024 (Within Days), Age at Menarche: Age at First : Age at Menopause: Research Quality Assurance Specialist History Comments: Sexual Activity: Yes; Male Contraception: No contraception data on record PAST MEDICAL HISTORY Diagnosis Date Anemia previous Headaches History of sexually transmitted disease PAST SURGICAL HISTORY Procedure Laterality Date NONE NONE FAMILY HISTORY Problem Relation Age of Onset Diabetes Mother Cancer Mother Throat Leukemia Mother No Known Problems Father Diabetes Sister other (Epilepsy) Sister Social History Tobacco Use Smoking status: Former Types: Cigarettes Smokeless tobacco: Never Vaping Use Vaping status: Never Used Substance Use Topics Alcohol use: Yes Comment: socially Drug use: Never Current Outpatient Medications Medication Sig ferrous sulfate 325 mg (65 mg iron) EC tablet Take 325 mg by mouth. vit no.124/iron/folic ( VITAMIN ORAL) Take 1 tablet by mouth once daily. metFORMIN (GLUCOPHAGE) 500 mg tablet Take 1 tablet by mouth daily with breakfast. amLODIPine (NORVASC) 5 mg tablet Take 1 tablet by mouth once daily. No current facility-administered medications for this visit. Allergies As of Date: 05/01/2024 Allergen Noted Reaction ACETAMINOPHEN 06/09/2021 Hives HYDROCODONE 06/09/2021 Hives HYDROCODONE-ACETAMINOPHEN 03/16/2022 Hives Fully Assessed 05/01/2024 REVIEW OF SYSTEMS Abdomen: No bloating, early satiety, indigestion, or increased flatulence. Bladder: No dysuria, gross hematuria, urinary frequency, urinary urgency, or incontinence. Breast: No breast lumps, nipple d/c, overlying skin changes, redness or skin retraction. Expanded ROS: N/A Allergies and current medication updated:Yes SENSITIVE EXAM: Sensitive exam not performed. EXAM: BP 108/70 Wt 214 lb (97.1kg) LMP 02/18/2024 GENERAL: pleasant, female in no apparent distress HEENT: Normocephalic and atraumatic NECK: Supple and full range of motion DERMATOLOGY: Normal and without lesions ASSESSMENT/PLAN: 1. Positive test - ICD9: V72.42, ICD10: Z32.01 (primary diagnosis) 2. Threatened miscarriage - ICD9: 640.00, ICD10: O20.0 3. with uncertain dates in first trimester - ICD9: V22.1, ICD10: Z34.91 4. Spotting affecting in first trimester - ICD9: 649.53, ICD10: O26.851 - Discussed today's ultrasound findings with patient and partner - No s/s of ectopic per US commercial kitchen service technician - Current gestational sac is 82 mm - Advised patient that at this time we should have seen a change in the ultrasound findings and visualize either a yolk sac or pole - Patient will need to continue to get HCG levels drawn - Bleeding precautions reviewed - Discussed returning to office next week for follow up visit and US. - If still small sac present - may need medical and/or surgical intervention - Patient and partner voice understanding - Support provided Leti Aranda APRN.[facility] 05-01-2024 History of Presen t illness Narrative Lisa Mesa is a 29 year old female who presents for follow up visit. HPI: Positive test in ED on 04/03/24. At that time and ultrasound showed a possible small gestational sac with NO pole or yolk sac. Patient having HCG levels drawn and returned today for a formal ultrasound for viability. TODAY: Small, abnormally shaped gestational sac visualized with NO pole or yolk sac. Patient reports that she started spotting and cramping this morning. Research Quality Assurance Specialist History LMP: 02/18/2024 (Within Days), Age at Menarche: Age at First : Age at Menopause: Research Quality Assurance Specialist History Comments: Sexual Activity: Yes; Male Contraception: No contraception data on record PAST MEDICAL HISTORY Diagnosis Date Anemia previous Headaches History of sexually transmitted disease PAST SURGICAL HISTORY Procedure Laterality Date NONE NONE FAMILY HISTORY Problem Relation Age of Onset Diabetes Mother Cancer Mother Throat Leukemia Mother No Known Problems Father Diabetes Sister other (Epilepsy) Sister Social History Tobacco Use Smoking status: Former Types: Cigarettes Smokeless tobacco: Never Vaping Use Vaping status: Never Used Substance Use Topics Alcohol use: Yes Comment: socially Drug use: Never Current Outpatient Medications Medication Sig ferrous sulfate 325 mg (65 mg iron) EC tablet Take 325 mg by mouth. vit no.124/iron/folic ( VITAMIN ORAL) Take 1 tablet by mouth once daily. metFORMIN (GLUCOPHAGE) 500 mg tablet Take 1 tablet by mouth daily with breakfast. amLODIPine (NORVASC) 5 mg tablet Take 1 tablet by mouth once daily. No current facility-administered medications for this visit. Allergies As of Date: 05/01/2024 Allergen Noted Reaction ACETAMINOPHEN 06/09/2021 Hives HYDROCODONE 06/09/2021 Hives HYDROCODONE-ACETAMINOPHEN 03/16/2022 Hives Fully Assessed 05/01/2024 REVIEW OF SYSTEMS Abdomen: No bloating, early satiety, indigestion, or increased flatulence. Bladder: No dysuria, gross hematuria, urinary frequency, urinary urgency, or incontinence. Breast: No breast lumps, nipple d/c, overlying skin changes, redness or skin retraction. Expanded ROS: N/A Allergies and current medication updated:Yes SENSITIVE EXAM: Sensitive exam not performed. EXAM: BP 108/70 Wt 214 lb (97.1kg) LMP 02/18/2024 GENERAL: pleasant, female in no apparent distress HEENT: Normocephalic and atraumatic NECK: Supple and full range of motion DERMATOLOGY: Normal and without lesions ASSESSMENT/PLAN: 1. Positive test - ICD9: V72.42, ICD10: Z32.01 (primary diagnosis) 2. Threatened miscarriage - ICD9: 640.00, ICD10: O20.0 3. with uncertain dates in first trimester - ICD9: V22.1, ICD10: Z34.91 4. Spotting affecting in first trimester - ICD9: 649.53, ICD10: O26.851 - Discussed today's ultrasound findings with patient and partner - No s/s of ectopic per US commercial kitchen service technician - Current gestational sac is 82 mm - Advised patient that at this time we should have seen a change in the ultrasound findings and visualize either a yolk sac or pole - Patient will need to continue to get HCG levels drawn - Bleeding precautions reviewed - Discussed returning to office next week for follow up visit and US. - If still small sac present - may need medical and/or surgical intervention - Patient and partner voice understanding - Support provided Leti Aranda APRN.CNM documented in this encounter [facility] 04-28-2024 Note HNO ID: [id number] Author: SUSHIL VILLANUEVA APRN.CNP Service: ? Author Type: Nurse Practitioner Type: Progress Notes Filed: 04/28/2024 12:59 Note Text: Lisa Mesa is a 29 year old female who presents for problem visit of follow up ER visit for positive HCG. HPI: Lisa had a positive test in ER on 04/03/24. HCG was 434. Ultrasound showed GESTATION: There is a 0.5 x 1.0 x 0.6 cm fluid collection in the endometrium of the uterine fundus which questionably represents an early intrauterine gestational sac. This is too small for age estimation. There is no demonstrated pole or yolk sac. HCG wanda to 789 on 04/05/24. She denies any pain or bleeding. Some headaches. OB History T3 L3 SAB0 IAB0 Ectopic0 Multiple0 Live Births3 Research Quality Assurance Specialist History LMP: 02/18/2024 (Within Days), Having periods Age at Menarche: Age at First : Age at Menopause: Research Quality Assurance Specialist History Comments: Sexual Activity: Yes; Male Contraception: No contraception data on record PAST MEDICAL HISTORY Diagnosis Date Anemia previous Headaches History of sexually transmitted disease PAST SURGICAL HISTORY Procedure Laterality Date NONE NONE FAMILY HISTORY Problem Relation Age of Onset Diabetes Mother Cancer Mother Throat Leukemia Mother No Known Problems Father Diabetes Sister other (Epilepsy) Sister Social History Tobacco Use Smoking status: Former Types: Cigarettes Smokeless tobacco: Never Vaping Use Vaping status: Never Used Substance Use Topics Alcohol use: Yes Comment: socially Drug use: Never Current Outpatient Medications Medication Sig vit no.124/iron/folic ( VITAMIN ORAL) Take 1 tablet by mouth once daily. metFORMIN (GLUCOPHAGE) 500 mg tablet Take 1 tablet by mouth daily with breakfast. amLODIPine (NORVASC) 5 mg tablet Take 1 tablet by mouth once daily. acetaminophen (TYLENOL EXTRA STRENGTH) 500 mg tablet Take 2 tablets by mouth every 6 hours as needed for Pain. (Patient not taking: Reported on 04/28/2024) No current facility-administered medications for this visit. Allergies As of Date: 04/28/2024 Allergen Noted Reaction ACETAMINOPHEN 06/09/2021 Hives HYDROCODONE 06/09/2021 Hives HYDROCODONE-ACETAMINOPHEN 03/16/2022 Hives Fully Assessed 04/28/2024 REVIEW OF SYSTEMS Expanded ROS: WINDERMAN: + amenorrhea Allergies and current medication updated:Yes SENSITIVE EXAM: The sensitive examination was discussed with the Patient or Patient's Authorized Marinator. As applicable, any other physician, advance practice provider, medical student, or other health professional student that will be observing or involved in the sensitive examination for educational or training purposes was discussed with the Patient or Authorized Marinator. The Patient or Authorized Marinator has agreed to proceed with the sensitive examination. (Sensitive examination includes inspection and/or palpation of the breasts, pelvis, prostate and anorectal regions). EXAM: LMP 02/18/24-Pt does not recall having any period in month of February 2024 GENERAL: pleasant, female in no apparent distress CHEST: Normal inspiratory effort NEURO: alert and oriented x3,exam grossly non-focal EXTREMITIES: normal ASSESSMENT AND PLAN: 1. with uncertain viability, single or unspecified fetus - ICD9: V23.87, ICD10: O36.80X0 (primary diagnosis) - Discussed ultrasound results and concern for unviable - Bleeding and pain precautions reviewed 2. with uncertain dates in first trimester - ICD9: V22.1, ICD10: Z34.91 - POC NURSE LEADER ULTRASOUND - HCG QUANTITATIVE - COMPLETE BLOOD COUNT - TYPE + SCREEN - URINE CULTURE - PELVIC US WHI - HEMOGLOBIN A1C RTO for formal ultrasound and visit after or sooner as needed. Sushil Villanueva APRN.ENVIRONMENTAL HEALTH AND SAFETY LEADER Medical Decision Making: Problems: Moderate: New problem with uncertain prognosis Data: Unique test result(s) reviewed: 2 Unique test(s) ordered: 3+ Risk: Low: Low risk from testing/treatment Medical Decision Making Level: 4 - Moderate [facility] 04-28-2024 History of Presen t illness Narrative Lisa Mesa is a 29 year old female who presents for problem visit of follow up ER visit for positive HCG. HPI: Lisa had a positive test in ER on 04/03/24. HCG was 434. Ultrasound showed GESTATION: There is a 0.5 x 1.0 x 0.6 cm fluid collection in the endometrium of the uterine fundus which questionably represents an early intrauterine gestational sac. This is too small for age estimation. There is no demonstrated pole or yolk sac. HCG wanda to 789 on 04/05/24. She denies any pain or bleeding. Some headaches. OB History T3 L3 SAB0 IAB0 Ectopic0 Multiple0 Live Births3 Research Quality Assurance Specialist History LMP: 02/18/2024 (Within Days), Having periods Age at Menarche: Age at First : Age at Menopause: Research Quality Assurance Specialist History Comments: Sexual Activity: Yes; Male Contraception: No contraception data on record PAST MEDICAL HISTORY Diagnosis Date Anemia previous Headaches History of sexually transmitted disease PAST SURGICAL HISTORY Procedure Laterality Date NONE NONE FAMILY HISTORY Problem Relation Age of Onset Diabetes Mother Cancer Mother Throat Leukemia Mother No Known Problems Father Diabetes Sister other (Epilepsy) Sister Social History Tobacco Use Smoking status: Former Types: Cigarettes Smokeless tobacco: Never Vaping Use Vaping status: Never Used Substance Use Topics Alcohol use: Yes Comment: socially Drug use: Never Current Outpatient Medications Medication Sig vit no.124/iron/folic ( VITAMIN ORAL) Take 1 tablet by mouth once daily. metFORMIN (GLUCOPHAGE) 500 mg tablet Take 1 tablet by mouth daily with breakfast. amLODIPine (NORVASC) 5 mg tablet Take 1 tablet by mouth once daily. acetaminophen (TYLENOL EXTRA STRENGTH) 500 mg tablet Take 2 tablets by mouth every 6 hours as needed for Pain. (Patient not taking: Reported on 04/28/2024) No current facility-administered medications for this visit. Allergies As of Date: 04/28/2024 Allergen Noted Reaction ACETAMINOPHEN 06/09/2021 Hives HYDROCODONE 06/09/2021 Hives HYDROCODONE-ACETAMINOPHEN 03/16/2022 Hives Fully Assessed 04/28/2024 REVIEW OF SYSTEMS Expanded ROS: WINDERMAN: + amenorrhea Allergies and current medication updated:Yes SENSITIVE EXAM: The sensitive examination was discussed with the Patient or Patient's Authorized Marinator. As applicable, any other physician, advance practice provider, medical student, or other health professional student that will be observing or involved in the sensitive examination for educational or training purposes was discussed with the Patient or Authorized Marinator. The Patient or Authorized Marinator has agreed to proceed with the sensitive examination. (Sensitive examination includes inspection and/or palpation of the breasts, pelvis, prostate and anorectal regions). EXAM: LMP 02/18/24-Pt does not recall having any period in month of February 2024 GENERAL: pleasant, female in no apparent distress CHEST: Normal inspiratory effort NEURO: alert and oriented x3,exam grossly non-focal EXTREMITIES: normal ASSESSMENT AND PLAN: 1. with uncertain viability, single or unspecified fetus - ICD9: V23.87, ICD10: O36.80X0 (primary diagnosis) - Discussed ultrasound results and concern for unviable - Bleeding and pain precautions reviewed 2. with uncertain dates in first trimester - ICD9: V22.1, ICD10: Z34.91 - POC NURSE LEADER ULTRASOUND - HCG QUANTITATIVE - COMPLETE BLOOD COUNT - TYPE + SCREEN - URINE CULTURE - PELVIC US WHI - HEMOGLOBIN A1C RTO for formal ultrasound and visit after or sooner as needed. Sushil Villanueva APRN.CNP Medical Decision Making: Problems: Moderate: New problem with uncertain prognosis Data: Unique test result(s) reviewed: 2 Unique test(s) ordered: 3+ Risk: Low: Low risk from testing/treatment Medical Decision Making Level: 4 - Moderate documented in this encounter [facility] 03-16-2024 Note . MICRO - Microbiology PROCEDURE: Affirm Pathogens DNA Direct Probe [*1] SOURCE: Vaginal Fluid BODY SITE: Vagina COLLECTED DATE/TIME: 03/15/2024 14:47 EDT RECEIVED DATE/TIME: 03/15/2024 19:32 EDT START DATE/TIME: 03/15/2024 19:32 EDT FREE TEXT SOURCE: FINAL REPORTS Final Report [] Verified Date/Time/Personnel: 03/16/2024 12:54 EDT Gardnerella vaginalis DNA Probe Positive Sarah species DNA Probe Negative Trichomonas vaginalis DNA Probe Negative Performing Locations *1: This test was performed at: [address], [facility]- , [facility] ([place]) 02-06-2024 Note . MICRO - Microbiology PROCEDURE: Affirm Pathogens DNA Direct Probe [*1] SOURCE: Vaginal Fluid BODY SITE: Vagina COLLECTED DATE/TIME: 02/05/2024 16:09 EDT RECEIVED DATE/TIME: 02/06/2024 07:44 EDT START DATE/TIME: 02/06/2024 07:44 EDT FREE TEXT SOURCE: FINAL REPORTS Final Report [] Verified Date/Time/Personnel: 02/06/2024 12:45 EDT Sarah species DNA Probe Negative Gardnerella vaginalis DNA Probe Positive Trichomonas vaginalis DNA Probe Negative Performing Locations *1: This test was performed at: [address], [facility]- , [facility] ([place]) 01-03-2024 Note . MICRO - Microbiology PROCEDURE: Urine Culture [*1] SOURCE: Urine, Clean Catch BODY SITE: COLLECTED DATE/TIME: 01/01/2024 10:57 EDT RECEIVED DATE/TIME: 01/01/2024 15:11 EDT START DATE/TIME: 01/01/2024 15:11 EDT FREE TEXT SOURCE: FINAL REPORTS Final Report [] Verified Date/Time/Personnel: 01/03/2024 14:57 EDT 3,000 cfu/ml Group B Beta Hemolytic Strep (Strep agalactiae) Sensitivity testing is not recommended for one of the following reasons: 1. Established susceptibility patterns are available or 2. Interpretative criteria are not available. >100,000 cfu/ml Multiple bacterial morphotypes present. Probable Contamination.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 days or more after delivery. Discharge that has a bad smell. An unexplained fever. Nausea or vomiting. Pain or swelling near the vagina or perineum. A drop in blood pressure. Lightheadedness or fainting. Shortness of breath. A fast heart rate that happens with very little activity. Signs of shock, such as: ? Blurry vision. ? Chills. ? Dizziness. ? Weakness. How is this diagnosed? This condition may be diagnosed based on: Your symptoms. A physical exam of your perineum, vagina, cervix, and uterus. Tests, including: ? Blood pressure and pulse measurements. ? Blood tests. ? Blood clotting tests. ? Ultrasonography. How is this treated? Treatment for this condition depends on the severity of your symptoms. It may include: Uterine massage. Medicines to help the uterus contract. Blood transfusions. Fluids given through the vein. A medical procedure to compress arteries supplying the uterus. Sometimes bleeding occurs if portions of the placenta are left behind in the uterus after delivery.If this happens, a curettage or scraping of the inside of the uterus must be done (rare). This usually stops the bleeding. If curettage does not stop the bleeding, surgery may be done to remove the uterus (hysterectomy), but this rarely occurs. If bleeding is due to clotting or bleeding problems that are not related to the , other treatments may be needed. Follow these instructions at home: Limit your activity as directed by your health care provider. Your health care provider may order bed rest (getting up to go to the bathroom only) or may allow you to continue light activity. Keep track of the number of pads you use each day and how soaked (saturated) they are. Write down this information. Do not use tampons. Do not douche or have sexual intercourse until your health care provider approves. Drink enough fluids to keep your urine clear or pale yellow. Get enough rest. Eat foods that are rich in iron, such as spinach, red meat, and legumes. Take any feix-odb-oyrtrtt and prescription medicines only as told by your health care provider. Keep all follow-up visits as told by your health care provider. This is important. Get help right away if: You experience severe cramps in your stomach, back, or abdomen. You have a fever. You pass large clots or tissue. Save any tissue for your health care provider to look at. Your bleeding increases. You have heavy bleeding that soaks one pad per hour for 2 hours in a row. You faint or become dizzy, weak, or lightheaded. Your sanitary pad count per hour is increasing. You are urinating less than usual or not at all. You have shortness of breath. Your heart rate is faster than usual. You have sudden chest pain. This information is not intended to replace advice given to you by your health care provider. Make sure you discuss any questions you have with your health care provider. Document Released: 10/05/2004 Document Revised: 06/28/2018 Document Reviewed: 02/16/2017 [employer] Patient Education 2020 [employer] Home Care Instructions After Delivery After discharge you may discover that you still have questions about body changes, activity, and care during the next few weeks. The following information should be helpful in answering many of your questions. ACTIVITY Resume your daily activities at home gradually. Allow time for rest periods during the day Avoid heavy lifting (more than 10 pounds/4.5 kilograms) and strenuous work or sports. If you had a , you should refrain from vacuuming, stair-climbing, and driving a car for 2 to 3 weeks. VAGINAL FLOW & RETURN OF MENSES Vaginal flow may continue for 4 to 6 weeks after delivery. Usually the amount decreases and the color of blood gets surgical services tech. Bright red and increased flow may reoccur if you have been too active. Lie down, rest, and call your caregiver if you are soaking more than 1 pad an hour or passing largeclots. Menstrual period will usually return 6 to 8 weeks after delivery. PERINEAL CARE Use the kim-bottle and change sanitary pads each time you go to the bathroom. Use towelettes in place of toilet paper until stitches are healed. Continue to use tucks and/or spray dermoplast. Lidocaine cream for episiotomy pain with your care givers approval. Do not use tampons or douches until vaginal bleeding has stopped (about 4 weeks). No Sexual intercourse until seen by physician. INCISION (CUT BY THE SURGEON) CARE Following , shower as desired but try to keep your incision dry. A small amount of clear or pink drainage is normal. The incision site will be tender for several weeks. Take prescription or kbwc-tpu-xciwari medications for pain with your care givers approval. Contact your caregiver if the drainage increases, becomes foul smelling, the incision reddens, or you develop a fever. BOWELS/HEMORRHOIDS Try to avoid constipation by increasing the fluids and fiber in your diet. Drink at least 6 to 8 glasses of non-caffeinated fluids per day. Include whole grains, raw fruits and vegetables in your diet. Avoid straining when trying to pass a stool. Colh-gti-yepwthp medications, stool softeners, can be used. Check with your caregiver. NUTRITION Eat a well-balanced diet that includes the basic food groups. Do not try to lose weight quickly by drastically cutting back on calories. EXERCISES Kegel exercises Start this exercise right after delivery. You can do it while standing, sitting, or lying down. Tighten your stomach muscles and the muscles surrounding your canal. Hold for a few seconds and then relax. Do Kegel exercises when you take a sitz bath. Repeat often during the day. Choose specialtimes during the day when you will remember to do this (for example, when using the bathroom, turning the water faucet on, etc.). Repeat 5 times each time. Make Kegel exercises a part of your daily routine to maintain the tone of muscles that support your vagina, bladder, and bowels. SELF BREAST EXAMINATION A self breast exam needs to be an important part of every woman's self-care. Do your self breast exam once a month, 5 to 7 days after your period begins, unless you are . Do self breast exams at the same time of the month each month, on a day of your choice. Any lump, bump or discharge should be reported to your caregiver. SEEK MEDICAL CARE IMMEDIATELY IF YOU NOTICE: Sanitary pad soaked with blood in 1 hour or less. Severe lower abdominal pain or cramping. Foul-smelling discharge from vagina. Increased rather than decreased pain around stitches and/or swelling, redness or hardness in area. Pain and/or redness in calf of the leg. Nausea with vomiting for 12 hours. Sudden, severe chest pain. Shortness of breath. Painful urination. Severe headache. Area of the breast is red and sore and you have a fever. (You may feel like you have flu symptoms.) Additional Information VACCINATE! IT SAVES LIVES! Members of the community who have not yet received the COVID-19 vaccine and would like to receive it can visit one of [facility] vaccine clinics. There are many vaccine clinic locations within the [facility]. For locations and available times, please visit [email or web address]. It is important to note that some COVID mobile vaccine clinics are held outdoors and may be canceled in rainy orstormy conditions. To learn more about pediatric vaccinations (ages 5-11), we invite you to visit the [facility] webpage. [email or web address] learn more about the COVID-19 vaccine, we invite you to visit the [facility] website for a list of frequently asked questions. [email or web address] [facility] [employer] Patient Portal Access Instructions: Stay connected with your healthcare team and access your personal medical information anytime with the [facility] [employer] Patient Portal.If you would like a full copy of your medical records, please contact the [facility] Medical Records Department, Sunday through Sunday between 8a.m. and 4:30p.m. Please follow the directions below to access the portal: 1.Access the email account you provided upon registration to the hospital.2.Look for an invitation email from [facility].3.Open the email and access the invitation link: Accept Invitation to [facility].Fill in the required french to create your account. Sign into [email or web address] with your username and password that you created in the above steps to stay up to date. You can then view a summary of results, a summary of your visits, and the ability to download your summaries to your computer or send the information securely to a physician. Remember that your healthcare information is confidential, so carefully consider who you will allow to register on the [facility] Patient Portal for access to your information. You can also access the [facility] Patient Portal on the [employer]. Simply click on Health Records under [employer] and then click on the [employer] logo. HOW TO SAFELY DISPOSE OF PRESCRIPTION MEDICATIONS Please use one of the following methods to safely dispose of your unused medications. 1.Use a drug disposal kit: the drug disposal pouch allows you to safely discard your old and unuseddrugs. Ask your nurse to give you one when you are discharged.2.Visit a local take-back location: Many local pharmacies and police departments have programs that collect old and unwanted prescriptiondrugs. Call your local pharmacy or go to http://Z[employer]om.[employer] Materials/5P3Sk4u to find one close to you.3.Make use of household items: Use cat litter or old coffee grounds to dispose medications if other options arenot available. Mix your drugs with these household products, seal them in an airtight container andthrow it into the garbage. Call [facility]: [phone] to be sure your drugs can be disposed of in this way. Some medicines may require a different approach.4.Never flush your medications down the toilet. IF YOU HAVE BEEN PRESCRIBED AN OPIOID FOR PAIN If you have been prescribed an opioid (such as hydrocodone, oxycodone or morphine), it is critical to understand the possible side effects and risks of opioid pain medications. Even when taken as directed, opioids can have several side effects including: Tolerance, meaning you might need to take more of a medication for the same pain relief. Nausea, vomiting and/or constipation. Sleepiness, dizziness, dry mouth, confusion, depression or itching. Physical dependence, meaning you have withdrawal symptoms when a medication is stopped, can develop within a few days. KNOW YOUR RESPONSIBILITIES It is important to know exactly how much and how often to take the opioid pain medications you are prescribed. Never take opioids in higher amounts or more often than prescribed. Do not combine opioids with alcohol or other drugs that cause drowsiness, such as benzodiazepines, also known as benzos,including diazepam and alprazolam, muscle relaxants or sleep aids. Never sell or share prescriptionopioids. This is illegal. Store opioids in a secure place and out of reach of others (including children, family, friends and visitors). The last page of this document has been signed and retained as a CHART COPY Signatures Patient Education Materials Hypertension Hemorrhage 7- Home Care Instructions After Delivery 08/2019 (CUSTOM) Medication Leaflets My discharge plan and instructions have been reviewed and explained to me and I,LISA MESA understand my current condition and have read and understand these discharge instructions. I have received a written copy of the plan/instructions. If I have questions, I am aware that I should contact my d octor. Patient/Marinator Signature: Date/Time: Relationship to Patient: Witness Name/Signature: [id number] A. Received in formalin, labeled with the patients name, Case #[id number], and placenta is a bhatia placenta weighing 851 g and measuring 17.5 x 17.5 x 4 cm. The 3 vessel green stained umbilical cord inserts 1.5 cm to the nearest placental margin, measures 23.5 cm long, and 1.1 cm diameter. Extraplacental membranes are benavidez green stained, opaque, thickened and inserting at the placental margin no fibrous ridge is identified however there is up to 4 cm of exposed extrachorial placenta. The surface is purple-blue with arborizing vasculature. The maternal surface is red-brown with central area of disc disruption measuring 8 x 4 cm. On cut section the disc is red-brown, soft and spongy withcentral yellow rubbery fibrinous lesion measuring 10 x 2.5 x 3.7 cm accounting for less than 15% ofthe overall disc volume. Marinator sections in 3 cassettes. Dictated by [facility] 08-09-2022 Note A. Received in formalin, labeled with the patients name, Case #[id number], and placenta is a bhatia placenta weighing 851 g and measuring 17.5 x 17.5 x 4 cm. The 3 vessel green stained umbilical cord inserts 1.5 cm to the nearest placental margin, measures 23.5 cm long, and 1.1 cm diameter. Extraplacental membranes are benavidez green stained, opaque, thickened and inserting at the placental margin no fibrous ridge is identified however there is up to 4 cm of exposed extrachorial placenta. The surface is purple-blue with arborizing vasculature. The maternal surface is red-brown with central area of disc disruption measuring 8 x 4 cm. On cut section the disc is red-brown, soft and spongy withcentral yellow rubbery fibrinous lesion measuring 10 x 2.5 x 3.7 cm accounting for less than 15% ofthe overall disc volume. Marinator sections in 3 cassettes. Dictated by [facility] 08-09-2022 Hospital Discharge instructions Patient Education 03/07/2022 07:46:23 Hypertension Hypertension hypertension is high blood pressure that remains higher than normal after childbirth. You may not realize that you have hypertension if your blood pressure is not being checked regularly. In most cases, hypertension will go away on its own, usually within a week of delivery. However, for some women, medical treatment is required to prevent serious complications, such as seizures or stroke. What are the causes? This condition may be caused by one or more of the following: Hypertension that existed before (chronic hypertension). Hypertension that comes on as a result of (gestational hypertension). Hypertensive disorders during (preeclampsia) or seizures in women who have high blood pressure during (eclampsia). A condition in which the liver, platelets, and red blood cells are damaged during (HELLP syndrome). A condition in which the thyroid produces too much hormones (hyperthyroidism). Other rare problems of the nerves (neurological disorders) or blood disorders. In some cases, the cause may not be known. What increases the risk? The following factors may make you more likely to develop this condition: Chronic hypertension. In some cases, this may not have been diagnosed before . Obesity. Type 2 diabetes. Kidney disease. History of preeclampsia or eclampsia. Other medical conditions that change the level of hormones in the body (hormonal imbalance). What are the signs or symptoms? As with all types of hypertension, hypertension may not have any symptoms. Depending on how high your blood pressure is, you may experience: Headaches. These may be mild, moderate, or severe. They may also be steady, constant, or sudden in onset (thunderclap headache). Changes in your ability to see (visual changes). Dizziness. Shortness of breath. Swelling of your hands, feet, lower legs, or face. In some cases, you may have swelling in more than one of these locations. Heart palpitations or a racing heartbeat. Difficulty breathing while lying down. Decrease in the amount of urine that you pass. Other rare signs and symptoms may include: Sweating more than usual. This lasts longer than a few days after delivery. Chest pain. Sudden dizziness when you get up from sitting or lying down. Seizures. Nausea or vomiting. Abdominal pain. How is this diagnosed? This condition may be diagnosed based on the results of a physical exam, blood pressure measurements, and blood and urine tests. You may also have other tests, such as a CT scan or an MRI, to check for other problems of hypertension. How is this treated? If blood pressure is high enough to require treatment, your options may include: Medicines to reduce blood pressure (antihypertensives). Tell your health care provider if you are or if you plan to breastfeed. There are many antihypertensive medicines that are safe to take while . Stopping medicines that may be causing hypertension. Treating medical conditions that are causing hypertension. Treating the complications of hypertension, such as seizures, stroke, or kidney problems. Your health care provider will also continue to monitor your blood pressure closely until it is within a safe range for you. Follow these instructions at home: Take uvtm-cil-lqvrgnz and prescription medicines only as told by your health care provider. Return to your normal activities as told by your health care provider. Ask your health care provider what activities are safe for you. Do not use any products that contain nicotine or tobacco, such as cigarettes and e-cigarettes. If you need help quitting, ask your health care provider. Keep all follow-up visits as told by your health care provider. This is important. Contact a health care provider if: Your symptoms get worse. You have new symptoms, such as: ?A headache that does not get better. ?Dizziness. ?Visual changes. Get help right away if: You suddenly develop swelling in your hands, ankles, or face. You have sudden, rapid weight gain. You develop difficulty breathing, chest pain, racing heartbeat, or heart palpitations. You develop severe pain in your abdomen. You have any symptoms of a stroke. BE FAST is an easy way to remember the main warning signs of astroke: ?B - Balance. Signs are dizziness, sudden trouble walking, or loss of balance. ?E - Eyes. Signs are trouble seeing or a sudden change in vision. ?F - Face. Signs are sudden weakness or numbness of the face, or the face or eyelid drooping on oneside. ?A - Arms. Signs are weakness or numbness in an arm. This happens suddenly and usually on one side of the body. ?S - Speech. Signs are sudden trouble speaking, slurred speech, or trouble understanding what people say. ?T - Time. Time to call emergency services. Write down what time symptoms started. You have other signs of a stroke, such as: ?A sudden, severe headache with no known cause. ?Nausea or vomiting. ?Seizure. These symptoms may represent a serious problem that is an emergency. Do not wait to see if the symptoms will go away. Get medical help right away. Call your local emergency services (911 in the [place] Do not drive yourself to the hospital. Summary hypertension is high blood pressure that remains higher than normal after childbirth. In most cases, hypertension will go away on its own, usually within a week of delivery. For some women, medical treatment is required to prevent serious complications, such as seizures orstroke. This information is not intended to replace advice given to you by your health care provider. Make sure you discuss any questions you have with your health care provider. Document Released: 03/19/2015 Document Revised: 08/22/2019 Document Reviewed: 05/06/2018 [employer] Patient Education 2020 [employer]. 03/07/2022 07:46:22 Hemorrhage Hemorrhage hemorrhage is excessive blood loss after childbirth. Vaginal bleeding after delivery is normal and should be expected. Bleeding (lochia) will occur for several days after childbirth. This can be expected with normal vaginal deliveries and deliveries. However, hemorrhage is a potentially serious condition. What are the causes? This condition is caused by: A loss of muscle tone in the uterus after childbirth. This can be caused by: ?An abnormal placenta. ?Infection. ?Bladder swelling (distension). Failure to deliver all of the placenta or the retention of clots. Wounds in the canal caused by delivery of the fetus. Infection of the uterus. Infection of tissue around the fetus. A tear in the uterus. Tearing of the vagina or cervix during delivery. A maternal bleeding disorder that prevents blood from clotting (rare). What increases the risk? This condition is likely to develop in people who: Have a history of hemorrhage. Had a delivery that lasted longer than usual. Have an excess of amniotic fluid in the amniotic sac (polyhydramnios), leading the uterus to stretch too much. Have delivered quintuplets or more babies. Had high blood pressure, seizures, or coma during . Had a condition called preeclampsia or eclampsia during . Had problems with the placenta. Had complications during labor or delivery. Are obese. Are 40 years old or older. Are or . What are the signs or symptoms? Symptoms of this condition include: Passing large clots or pieces of tissue. These may be small pieces of placenta left after delivery. Soaking more than one sanitary pad per hour for several hours. Heavy, bright-red bleeding that occurs 4 days or more after delivery. Discharge that has a bad smell. An unexplained fever. Nausea or vomiting. Pain or swelling near the vagina or perineum. A drop in blood pressure. Lightheadedness or fainting. Shortness of breath. A fast heart rate that happens with very little activity. Signs of shock, such as: ?Blurry vision. ?Chills. ?Dizziness. ?Weakness. How is this diagnosed? This condition may be diagnosed based on: Your symptoms. A physical exam of your perineum, vagina, cervix, and uterus. Tests, including: ?Blood pressure and pulse measurements. ?Blood tests. ?Blood clotting tests. ?Ultrasonography. How is this treated? Treatment for this condition depends on the severity of your symptoms. It may include: Uterine massage. Medicines to help the uterus contract. Blood transfusions. Fluids given through the vein. A medical procedure to compress arteries supplying the uterus. Sometimes bleeding occurs if portions of the placenta are left behind in the uterus after delivery.If this happens, a curettage or scraping of the inside of the uterus must be done (rare). This usually stops the bleeding. If curettage does not stop the bleeding, surgery may be done to remove the uterus (hysterectomy), but this rarely occurs. If bleeding is due to clotting or bleeding problems that are not related to the , other treatments may be needed. Follow these instructions at home: Limit your activity as directed by your health care provider. Your health care provider may order bed rest (getting up to go to the bathroom only) or may allow you to continue light activity. Keep track of the number of pads you use each day and how soaked (saturated) they are. Write down this information. Do not use tampons. Do not douche or have sexual intercourse until your health care provider approves. Drink enough fluids to keep your urine clear or pale yellow. Get enough rest. Eat foods that are rich in iron, such as spinach, red meat, and legumes. Take any snlc-opp-ggrfeeh and prescription medicines only as told by your health care provider. Keep all follow-up visits as told by your health care provider. This is important. Get help right away if: You experience severe cramps in your stomach, back, or abdomen. You have a fever. You pass large clots or tissue. Save any tissue for your health care provider to look at. Your bleeding increases. You have heavy bleeding that soaks one pad per hour for 2 hours in a row. You faint or become dizzy, weak, or lightheaded. Your sanitary pad count per hour is increasing. You are urinating less than usual or not at all. You have shortness of breath. Your heart rate is faster than usual. You have sudden chest pain. This information is not intended to replace advice given to you by your health care provider. Make sure you discuss any questions you have with your health care provider. Document Released: 10/05/2004 Document Revised: 06/28/2018 Document Reviewed: 02/16/2017 [employer] Patient Education 2020 [employer]. 03/07/2022 07:46:19 7- Home Care Instructions After Delivery 08/2019 (CUSTOM) Home Care Instructions After Delivery After discharge you may discover that you still have questions about body changes, activity, and care during the next few weeks. The following information should be helpful in answering many of your questions. ACTIVITY Resume your daily activities at home gradually. Allow time for rest periods during the day Avoid heavy lifting (more than 10 pounds/4.5 kilograms) and strenuous work or sports. If you had a , you should refrain from vacuuming, stair-climbing, and driving a car for 2 to 3 weeks. VAGINAL FLOW & RETURN OF MENSES Vaginal flow may continue for 4 to 6 weeks after delivery. Usually the amount decreases and the color of blood gets surgical services tech. Bright red and increased flow may reoccur if you have been too active. Lie down, rest, and call your caregiver if you are soaking more than 1 pad an hour or passing largeclots. Menstrual period will usually return 6 to 8 weeks after delivery. PERINEAL CARE Use the kim-bottle and change sanitary pads each time you go to the bathroom. Use towelettes in place of toilet paper until stitches are healed. Continue to use tucks and/or spray dermoplast. Lidocaine cream for episiotomy pain with your care givers approval. Do not use tampons or douches until vaginal bleeding has stopped (about 4 weeks). No Sexual intercourse until seen by physician. INCISION (CUT BY THE SURGEON) CARE Following , shower as desired but try to keep your incision dry. A small amount of clear or pink drainage is normal. The incision site will be tender for several weeks. Take prescription or vgfe-gbe-uuhanhl medications for pain with your care givers approval. Contact your caregiver if the drainage increases, becomes foul smelling, the incision reddens, or you develop a fever. BOWELS/HEMORRHOIDS Try to avoid constipation by increasing the fluids and fiber in your diet. Drink at least 6 to 8 glasses of non-caffeinated fluids per day. Include whole grains, raw fruits and vegetables in your diet. Avoid straining when trying to pass a stool. Avmv-uzy-jnyvwmo medications, stool softeners, can be used. Check with your caregiver. NUTRITION Eat a well-balanced diet that includes the basic food groups. Do not try to lose weight quickly by drastically cutting back on calories. EXERCISES Kegel exercises Start this exercise right after delivery. You can do it while standing, sitting, or lying down. Tighten your stomach muscles and the muscles surrounding your canal. Hold for a few seconds and then relax. Do Kegel exercises when you take a sitz bath. Repeat often during the day. Choose specialtimes during the day when you will remember to do this (for example, when using the bathroom, turning the water faucet on, etc.). Repeat 5 times each time. Make Kegel exercises a part of your daily routine to maintain the tone of muscles that support your vagina, bladder, and bowels. SELF BREAST EXAMINATION A self breast exam needs to be an important part of every woman's self-care. Do your self breast exam once a month, 5 to 7 days after your period begins, unless you are . Do self breast exams at the same time of the month each month, on a day of your choice. Any lump, bump or discharge should be reported to your caregiver. SEEK MEDICAL CARE IMMEDIATELY IF YOU NOTICE: Sanitary pad soaked with blood in 1 hour or less. Severe lower abdominal pain or cramping. Foul-smelling discharge from vagina. Increased rather than decreased pain around stitches and/or swelling, redness or hardness in area. Pain and/or redness in calf of the leg. Nausea with vomiting for 12 hours. Sudden, severe chest pain. Shortness of breath. Painful urination. Severe headache. Area of the breast is red and sore and you have a fever. (You may feel like you have flu symptoms.) Follow Up Care 03/05/2022 09:44:05 With:GOVERNMENT CLERK, CLINIC Address: [address] [place] [address] (Mon-Fri from 8:30am - 5:00pm) [place] [address]- When:04/18/2022 Comments:Follow-up as needed With:[facility]; Address:Unknown When: Unknown [facility] 08-09-2022 Note Discharge Instructions Thank you for allowing [facility] to assist you with your healthcare needs. The following is importantdischarge information regarding your hospital visit. Your Care Team PHYSICIAN, NONE What to do next Follow Up Appointments Follow Up with GOVERNMENT CLERK, CLINIC When In 6 weeks 04/18/2022 EDT Why: Follow-up as needed Where: [address] [facility] (Mon-Fri from 8:30am - 5:00pm) [place] [address]- Follow Up with [facility]; When Someone Will Contact You Regarding These Home Health Referrals No home referrals have been ordered for you. No one will call you. The Following Activity and Diet Have Been Ordered for You Discharge Activity - Ordered -- May Shower, No sexual intercourse or anything inside of the vagina x 6 wks. No tub baths x 2 wks, No lifting >15lbs x 6 wks, Don't operate a vehicle for 2 wks and until pain free,, 03/07/22 6:16:00 EDT Discharge Diet - Ordered -- Type of Diet: Regular, No changes were made to your diet during your hospital stay. Please resume your pre hospitalization diet on discharge., 03/07/22 6:16:00 EDT The Following Equipment Has Been Ordered for You Discharge Home Equipment Discharge Wound Care - Ordered -- call the office if exp a temp >100.4, Increase in Bleeding, Increase in Pain, or Increase in foul odors, 03/07/22 6:16:00 EDT The Following Treatments Have Been Arranged for You Discharge Labs No qualifying data available. Discharge Radiology No qualifying data available. Other Therapies No qualifying data available. Allergies Vicodin Immunizations This Visit Not Given Vaccine Commentstetanus/diphth/pertuss (Tdap) adult/adol Patient Refuses Medications Please ask your primary doctor or pharmacist before taking any other medication not listed, including over the counter drugs, herbal medications, vitamins and or supplements as they may interact withyour home medications. What How Much When Instructions Last Dose New DME (Blood Pressure Cuff) See instructions Check and Log Blood Pressure Daily Printed Prescription New docusate (Colace 100 mg oral capsule) 1 cap by mouth Two (2) times a day as needed for as needed for constipation Pickup at [facility] #[id number] New ibuprofen (ibuprofen 600 mg oral tablet) 1 tab(s) by mouth Every 6 hours as needed for for pain Take with food or milk. Pickup at [facility] #[id number] New insulin glargine (Lantus 100 units/ mL10 ml vial solution) 22 unit(s) Subcutaneous (INT) Once a day (in the evening) Refills: 5 Patient needs 6 week supply of 22 units daily Pickup at [facility] #[id number] Changed cyclobenzaprine (cyclobenzaprine 5 mg oral tablet) 1 tab(s) by mouth Three (3) times a day Duration: 7 Days Pickup at [facility] #[id number] Unchanged famotidine (Pepcid 20 mg oral tablet) 1 tab(s) by mouth Once a day Unchanged multivitamin, (PNV Select) by mouth Once a day Pharmacy Information [facility] #[id number]: [address], [place] [id number] [phone] What How Much When Comments Stop Taking insulin detemir (Levemir) (Levemir 100 units/ mL 10 mL vial) 45 unit(s) Subcutaneous Once a day (in the evening) takes med at bedtime Stop Taking insulin lispro (HumaLOG) (HumaLOG 100 units/ mL subcutaneous solution) 14 unit(s) Subcutaneous Three (3) times a day takes with meals Please take this list to your next doctor s visit. Bring all medications you take, including over the counter medications, herbals and other supplements with you to your doctor s visit. Patients and families are reminded to discard old lists and to update any records with all medication providers or retail pharmacies. Education Materials Hypertension hypertension is high blood pressure that remains higher than normal after childbirth. You may not realize that you have hypertension if your blood pressure is not being checked regularly. In most cases, hypertension will go away on its own, usually within a week of delivery. However, for some women, medical treatment is required to prevent serious complications, such as seizures or stroke. What are the causes? This condition may be caused by one or more of the following: Hypertension that existed before (chronic hypertension). Hypertension that comes on as a result of (gestational hypertension). Hypertensive disorders during (preeclampsia) or seizures in women who have high blood pressure during (eclampsia). A condition in which the liver, platelets, and red blood cells are damaged during (HELLP syndrome). A condition in which the thyroid produces too much hormones (hyperthyroidism). Other rare problems of the nerves (neurological disorders) or blood disorders. In some cases, the cause may not be known. What increases the risk? The following factors may make you more likely to develop this condition: Chronic hypertension. In some cases, this may not have been diagnosed before . Obesity. Type 2 diabetes. Kidney disease. History of preeclampsia or eclampsia. Other medical conditions that change the level of hormones in the body (hormonal imbalance). What are the signs or symptoms? As with all types of hypertension, hypertension may not have any symptoms. Depending on how high your blood pressure is, you may experience: Headaches. These may be mild, moderate, or severe. They may also be steady, constant, or sudden in onset (thunderclap headache). Changes in your ability to see (visual changes). Dizziness. Shortness of breath. Swelling of your hands, feet, lower legs, or face. In some cases, you may have swelling in more than one of these locations. Heart palpitations or a racing heartbeat. Difficulty breathing while lying down. Decrease in the amount of urine that you pass. Other rare signs and symptoms may include: Sweating more than usual. This lasts longer than a few days after delivery. Chest pain. Sudden dizziness when you get up from sitting or lying down. Seizures. Nausea or vomiting. Abdominal pain. How is this diagnosed? This condition may be diagnosed based on the results of a physical exam, blood pressure measurements, and blood and urine tests. You may also have other tests, such as a CT scan or an MRI, to check for other problems of hypertension. How is this treated? If blood pressure is high enough to require treatment, your options may include: Medicines to reduce blood pressure (antihypertensives). Tell your health care provider if you are or if you plan to breastfeed. There are many antihypertensive medicines that are safe to take while . Stopping medicines that may be causing hypertension. Treating medical conditions that are causing hypertension. Treating the complications of hypertension, such as seizures, stroke, or kidney problems. Your health care provider will also continue to monitor your blood pressure closely until it is within a safe range for you. Follow these instructions at home: Take hhqx-ajc-qsjhpmf and prescription medicines only as told by your health care provider. Return to your normal activities as told by your health care provider. Ask your health care provider what activities are safe for you. Do not use any products that contain nicotine or tobacco, such as cigarettes and e-cigarettes. If you need help quitting, ask your health care provider. Keep all follow-up visits as told by your health care provider. This is important. Contact a health care provider if: Your symptoms get worse. You have new symptoms, such as: ? A headache that does not get better. ? Dizziness. ? Visual changes. Get help right away if: You suddenly develop swelling in your hands, ankles, or face. You have sudden, rapid weight gain. You develop difficulty breathing, chest pain, racing heartbeat, or heart palpitations. You develop severe pain in your abdomen. You have any symptoms of a stroke. BE FAST is an easy way to remember the main warning signs of astroke: ? B - Balance. Signs are dizziness, sudden trouble walking, or loss of balance. ? E - Eyes. Signs are trouble seeing or a sudden change in vision. ? F - Face. Signs are sudden weakness or numbness of the face, or the face or eyelid drooping on one side. ? A - Arms. Signs are weakness or numbness in an arm. This happens suddenly and usually on one side of the body. ? S - Speech. Signs are sudden trouble speaking, slurred speech, or trouble understanding what peoplesay. ? T - Time. Time to call emergency services. Write down what time symptoms started. You have other signs of a stroke, such as: ? A sudden, severe headache with no known cause. ? Nausea or vomiting. ? Seizure. These symptoms may represent a serious problem that is an emergency. Do not wait to see if the symptoms will go away. Get medical help right away. Call your local emergency services (911 in the [place] Do not drive yourself to the hospital. Summary hypertension is high blood pressure that remains higher than normal after childbirth. In most cases, hypertension will go away on its own, usually within a week of delivery. For some women, medical treatment is required to prevent serious complications, such as seizures orstroke. This information is not intended to replace advice given to you by your health care provider. Make sure you discuss any questions you have with your health care provider. Document Released: 03/19/2015 Document Revised: 08/22/2019 Document Reviewed: 05/06/2018 [employer] Patient Education 2020 [employer]. Hemorrhage hemorrhage is excessive blood loss after childbirth. Vaginal bleeding after delivery is normal and should be expected. Bleeding (lochia) will occur for several days after childbirth. This can be expected with normal vaginal deliveries and deliveries. However, hemorrhage is a potentially serious condition. What are the causes? This condition is caused by: A loss of muscle tone in the uterus after childbirth. This can be caused by: ? An abnormal placenta. ? Infection. ? Bladder swelling (distension). Failure to deliver all of the placenta or the retention of clots. Wounds in the canal caused by delivery of the fetus. Infection of the uterus. Infection of tissue around the fetus. A tear in the uterus. Tearing of the vagina or cervix during delivery. A maternal bleeding disorder that prevents blood from clotting (rare). What increases the risk? This condition is likely to develop in people who: Have a history of hemorrhage. Had a delivery that lasted longer than usual. Have an excess of amniotic fluid in the amniotic sac (polyhydramnios), leading the uterus to stretch too much. Have delivered quintuplets or more babies. Had high blood pressure, seizures, or coma during . Had a condition called preeclampsia or eclampsia during . Had problems with the placenta. Had complications during labor or delivery. Are obese. Are 40 years old or older. Are or . What are the signs or symptoms? Symptoms of this condition include: Passing large clots or pieces of tissue. These may be small pieces of placenta left after delivery. Soaking more than one sanitary pad per hour for several hours. Heavy, bright-red bleeding that occurs 4 days or more after delivery. Discharge that has a bad smell. An unexplained fever. Nausea or vomiting. Pain or swelling near the vagina or perineum. A drop in blood pressure. Lightheadedness or fainting. Shortness of breath. A fast heart rate that happens with very little activity. Signs of shock, such as: ? Blurry vision. ? Chills. ? Dizziness. ? Weakness. How is this diagnosed? This condition may be diagnosed based on: Your symptoms. A physical exam of your perineum, vagina, cervix, and uterus. Tests, including: ? Blood pressure and pulse measurements. ? Blood tests. ? Blood clotting tests. ? Ultrasonography. How is this treated? Treatment for this condition depends on the severity of your symptoms. It may include: Uterine massage. Medicines to help the uterus contract. Blood transfusions. Fluids given through the vein. A medical procedure to compress arteries supplying the uterus. Sometimes bleeding occurs if portions of the placenta are left behind in the uterus after delivery.If this happens, a curettage or scraping of the inside of the uterus must be done (rare). This usually stops the bleeding. If curettage does not stop the bleeding, surgery may be done to remove the uterus (hysterectomy), but this rarely occurs. If bleeding is due to clotting or bleeding problems that are not related to the , other treatments may be needed. Follow these instructions at home: Limit your activity as directed by your health care provider. Your health care provider may order bed rest (getting up to go to the bathroom only) or may allow you to continue light activity. Keep track of the number of pads you use each day and how soaked (saturated) they are. Write down this information. Do not use tampons. Do not douche or have sexual intercourse until your health care provider approves. Drink enough fluids to keep your urine clear or pale yellow. Get enough rest. Eat foods that are rich in iron, such as spinach, red meat, and legumes. Take any znfs-mpd-hfnfcsk and prescription medicines only as told by your health care provider. Keep all follow-up visits as told by your health care provider. This is important. Get help right away if: You experience severe cramps in your stomach, back, or abdomen. You have a fever. You pass large clots or tissue. Save any tissue for your health care provider to look at. Your bleeding increases. You have heavy bleeding that soaks one pad per hour for 2 hours in a row. You faint or become dizzy, weak, or lightheaded. Your sanitary pad count per hour is increasing. You are urinating less than usual or not at all. You have shortness of breath. Your heart rate is faster than usual. You have sudden chest pain. This information is not intended to replace advice given to you by your health care provider. Make sure you discuss any questions you have with your health care provider. Document Released: 10/05/2004 Document Revised: 06/28/2018 Document Reviewed: 02/16/2017 [employer] Patient Education 2020 [employer]. Home Care Instructions After Delivery After discharge you may discover that you still have questions about body changes, activity, and care during the next few weeks. The following information should be helpful in answering many of your questions. ACTIVITY Resume your daily activities at home gradually. Allow time for rest periods during the day Avoid heavy lifting (more than 10 pounds/4.5 kilograms) and strenuous work or sports. If you had a , you should refrain from vacuuming, stair-climbing, and driving a car for 2 to 3 weeks. VAGINAL FLOW & RETURN OF MENSES Vaginal flow may continue for 4 to 6 weeks after delivery. Usually the amount decreases and the color of blood gets surgical services tech. Bright red and increased flow may reoccur if you have been too active. Lie down, rest, and call your caregiver if you are soaking more than 1 pad an hour or passing largeclots. Menstrual period will usually return 6 to 8 weeks after delivery. PERINEAL CARE Use the kim-bottle and change sanitary pads each time you go to the bathroom. Use towelettes in place of toilet paper until stitches are healed. Continue to use tucks and/or spray dermoplast. Lidocaine cream for episiotomy pain with your care givers approval. Do not use tampons or douches until vaginal bleeding has stopped (about 4 weeks). No Sexual intercourse until seen by physician. INCISION (CUT BY THE SURGEON) CARE Following , shower as desired but try to keep your incision dry. A small amount of clear or pink drainage is normal. The incision site will be tender for several weeks. Take prescription or rxgx-zjj-inwrhyd medications for pain with your care givers approval. Contact your caregiver if the drainage increases, becomes foul smelling, the incision reddens, or you develop a fever. BOWELS/HEMORRHOIDS Try to avoid constipation by increasing the fluids and fiber in your diet. Drink at least 6 to 8 glasses of non-caffeinated fluids per day. Include whole grains, raw fruits and vegetables in your diet. Avoid straining when trying to pass a stool. Ytql-yha-qtsryep medications, stool softeners, can be used. Check with your caregiver. NUTRITION Eat a well-balanced diet that includes the basic food groups. Do not try to lose weight quickly by drastically cutting back on calories. EXERCISES Kegel exercises Start this exercise right after delivery. You can do it while standing, sitting, or lying down. Tighten your stomach muscles and the muscles surrounding your canal. Hold for a few seconds and then relax. Do Kegel exercises when you take a sitz bath. Repeat often during the day. Choose specialtimes during the day when you will remember to do this (for example, when using the bathroom, turning the water faucet on, etc.). Repeat 5 times each time. Make Kegel exercises a part of your daily routine to maintain the tone of muscles that support your vagina, bladder, and bowels. SELF BREAST EXAMINATION A self breast exam needs to be an important part of every woman's self-care. Do your self breast exam once a month, 5 to 7 days after your period begins, unless you are . Do self breast exams at the same time of the month each month, on a day of your choice. Any lump, bump or discharge should be reported to your caregiver. SEEK MEDICAL CARE IMMEDIATELY IF YOU NOTICE: Sanitary pad soaked with blood in 1 hour or less. Severe lower abdominal pain or cramping. Foul-smelling discharge from vagina. Increased rather than decreased pain around stitches and/or swelling, redness or hardness in area. Pain and/or redness in calf of the leg. Nausea with vomiting for 12 hours. Sudden, severe chest pain. Shortness of breath. Painful urination. Severe headache. Area of the breast is red and sore and you have a fever. (You may feel like you have flu symptoms.) Additional Information VACCINATE! IT SAVES LIVES! Members of the community who have not yet received the COVID-19 vaccine and would like to receive it can visit one of [facility] vaccine clinics. There are many vaccine clinic locations within the [facility]. For locations and available times, please visit [email or web address]. It is important to note that some COVID mobile vaccine clinics are held outdoors and may be canceled in rainy orstormy conditions. To learn more about pediatric vaccinations (ages 5-11), we invite you to visit the [facility] webpage. [email or web address] learn more about the COVID-19 vaccine, we invite you to visit the [facility] website for a list of frequently asked questions. [email or web address] [facility] Access Instructions: Stay connected with your healthcare team and access your personal medical information anytime with the [facility] [employer] Patient Portal.If you would like a full copy of your medical records, please contact the [facility] Medical Records Department, Sunday through Sunday between 8a.m. and 4:30p.m. Please follow the directions below to access the portal: 1.Access the email account you provided upon registration to the [facility].2.Look for an invitation email from [facility].3.Open the email and access the invitation link: Accept Invitation to [facility].Fill in the required french to create your account. Sign into www.[employer] with your username and password that you created in the above steps to stay up to date. You can then view a summary of results, a summary of your visits, and the ability to download your summaries to your computer or send the information securely to a physician. Remember that your healthcare information is confidential, so carefully consider who you will allow to register on the [facility] Patient Portal for access to your information. You can also access the [facility] Patient Portal on the [employer] lisette. Simply click on Health Records under [employer] and then click on the [facility] logo. HOW TO SAFELY DISPOSE OF PRESCRIPTION MEDICATIONS Please use one of the following methods to safely dispose of your unused medications. 1.Use a drug disposal kit: the drug disposal pouch allows you to safely discard your old and unuseddrugs. Ask your nurse to give you one when you are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 Current Quarantine/Isolated any Illness No Any Contact with Sick Animals/Birds No Traveled Anywhere in Last 30 Days No No Personal Home Medications Received No home medications were brought in Able To Drink Order Detail Yes Able To Sign Consents Order Detail Yes Code Status Order Detail Full code IV Order Detail Yes Dialysis Schedule Order Detail N/A Has Diabetes Order Detail No Isolation Precautions Order Detail None Nurse Collect Order Detail 1 Oxygen Order Detail Yes Order Detail Yes Prior Valve Replacement Order Detail No Transport Mode Order Detail Bed and Nurse Anesthesia/Transfusions Prior anesthesia Admission Note-Nursing Patient History OB 03/05/2022 10:02 EDT WBC 8.7 10^3/mcL RBC 4.07 10^6/mcL LOW Hgb 12.4 G/dL Hct 37.0 % MCV 90.8 fL MCH 30.6 pg MCHC 33.6 G/dL RDW 14.3 % Platelet 127 10^3/mcL LOW MPV 9.9 fL Monocyte Distribution Width Not Performed Neutrophil % 60.6 % Lymphocyte % 32.7 % Monocyte % 6.2 % Eosinophil % 0.3 % Basophil % 0.2 % Neutrophil, Absolute 5.3 10^3/mcL Lymphocyte, Absolute 2.8 10^3/mcL Monocyte, Absolute 0.5 10^3/mcL Eosinophil, Absolute 0.0 10^3/mcL Basophil, Absolute 0.0 10^3/mcL 03/05/2022 9:53 EDT History and Physical (Modified) 03/05/2022 9:50 EDT Hand Left 03/05/2022 20 gauge Peripheral IV Activity: Insert new site Peripheral IV Dressing Condition: Clean, Dry, Intact Peripheral IV Dressing Activity: Applied, Transparent dressing Peripheral IV Line Status/Patency: Flushes easily, Continuous infusion, Good blood return Peripheral IV Line Care: Secured with tape Peripheral IV Site Condition: No complications Peripheral IV Equipment: Manual, Stopcock, PRN Adaptor Peripheral IV Number of Attempts: 1 Lactated Ringers Injection Begin Bag 1,000 mL mL 03/05/2022 9:46 EDT Patient Information Note Dr Browne with bedside US to confirm presentation. Cephalic presentation confirmed Cervix Dilation 7 cm Cervix Effacement 80 Station 0 Vaginal Exam Performed By GISELLE BROWNE MD . Documentation reviewed: Current records. Assessment and Plan [place] [employer] Anesthesiologists (ASA) physical status classification: Class III. Anesthetic Preoperative Plan Anesthetic technique: Epidural. Regional: Epidural. Postoperative pain management: Per surgeon. Risks discussed: nausea, vomiting, headache, sore throat, dental injury, hypotension, allergic reaction, serious complications, PDPH. Informed consent: signed by patient. Notes: preg., current 1/2 PPD smoker, obesity BMI 34.5, reflux/GERD, GDM requiring insulin, gTCP. Digitally Signed by HAKAN MEDINA on 03/05/2022 10:51 AM [id number] History and physical note [facility] HISTORY AND PHYSICAL Chief complaint: Contractions History of present illness: 26 yo at 39/3 wks with KORINA of 03/09/22 by 8 wk US presents to L&D for contractions over thepast 2 hours. They got continually stronger and closer together closest to 2 minutes apart at this point. Patient denies vaginal bleeding, leakage of fluid and decreased movement. Patient denies any history of genital lesions or outbreaks, including known HSV. is complicated by GDMA2, anxiety, GERD, tobacco use disorder and sciatic nerve pain. Also, pt has not been seen since 30 wks, scant care. care: ODS Obstetric History G1) 2013 41 wk , uncomplicated, 8# 8oz G2) 2014 40 wk , uncomplicated, 9# 1oz G3) 2017 40 wk , uncomplicated, 7# 1oz G4) 2019 40 wk , uncomplicated, 4435 g G5) current, GDMA2 Past Medical History Anxiety GERD Past Surgical History Denies Family History Denies a family history of: -problems with anesthesia, including malignant hyperthermia -bleeding/clotting disorders Social History Tobacco: cut down to 1/2 PPD in this Alcohol: denies in this Illicit drug use: denies in this Obstetrical datin wk US Medications: PNV Flexeril prn Lantus 45U bedtime Humalog 15U labs: O+/ab neg GBS unkn, collected today Rubella imm Varicella imm Gonorrhea/Chlamydia unkn, collected today Hep B neg RPR neg HIV neg Allergies Vicodin; hives Review of systems: HEENT: Denies SINCLAIR, change in vision Heart: Denies CP Lungs: Denies SOB GI: No N/V, diarrhea Psych: No SI/HI Physical exam: Vitals Signs Minimum Maximum Temp36.7(MAR 05 10:13)36.7(MAR 05 10:13)36.7(MAR 05 10:13) Heart Rate88(MAR 05 10:13)88(MAR 05 10:13)88(MAR 05 10:13) Resp Rate18(MAR 05 10:13)18(MAR 05 10:13)18(MAR 05 10:13) SBPH 154(MAR 05 10:13)H 154(MAR 05 10:13)H 154(MAR 05 10:13) DBPC 108(MAR 05 10:13)C 108(MAR 05 10:13)C 108(MAR 05 10:13) GENERAL: NAD, A&O x3 NEUROLOGICAL: A&Ox3, CN II-XII grossly intact HEENT: EOMI, mucus membranes moist CARDIOVASCULAR: No JVD RESPIRATORY: No increased work of breathing ABDOMEN: soft, gravid, nontender EXREMETIES: No peripheral edema CE: 7/80/0 FHT: 135/mod variability/-accel/-decels TOCO: q 2 minutes SSE: deferred BSUS: Cephalic Impression: 26 yo at 39/3 wks presents to L&D for contractions, found to be in active labor, is complicated by GDMA2, anxiety, GERD, tobacco use disorder, and sciatic nerve pain. Scant care. Plan: Admit for active labor -Admit to L&D -CEFM -Routine orders -Anesthesia to see -GBS unkn, collected today -PT desires epidural -No augmentation needed at this time GDMA2 -Fingerstick glucose pending on admission; 112 -For q2 hour checks during active labor -Current medication regimen prior to admission Lantus 45U nighttime, Humalog 15U TID -11/23/21 Hg A1c 7.2% -Most recent growth US seen 32 wks; EFW 1945g 49%, AC 52%. Other apts were missed. Anxiety -Stable without medications GERD -Stable with pepcid Tobacco use disorder -Patch available on request Sciatic nerve pain -Well controlled during with flexeril prn Scant care -Pt has not been seen in clinic over the past 8 weeks -Collected 36 wks labs in triage -Consider SSC -Will recommend tox screen to patient D/w Dr. Ferrell, aware of admission Digitally Signed by GISELLE BROWNE MD on 03/05/2022 10:20 AM [id number] History and physical note [facility] AD[facility] HISTORY AND PHYSICAL Chief complaint: Contractions History of present illness: 26 yo at 39/3 wks with KORINA of 03/09/22 by 8 wk US presents to L&D for contractions over thepast 2 hours. They got continually stronger and closer together closest to 2 minutes apart at this point. Patient denies vaginal bleeding, leakage of fluid and decreased movement. Patient denies any history of genital lesions or outbreaks, including known HSV. is complicated by GDMA2, anxiety, GERD, tobacco use disorder and sciatic nerve pain. Also, pt has not been seen since 30 wks, scant care. care: ODS Obstetric History G1) 2013 41 wk , uncomplicated, 8# 8oz G2) 2014 40 wk , uncomplicated, 9# 1oz G3) 2017 40 wk , uncomplicated, 7# 1oz G4) 2019 40 wk , uncomplicated, 4435 g G5) current, GDMA2 Past Medical History Anxiety GERD Past Surgical History Denies Family History Denies a family history of: -problems with anesthesia, including malignant hyperthermia -bleeding/clotting disorders Social History Tobacco: cut down to 1/2 PPD in this Alcohol: denies in this Illicit drug use: denies in this Obstetrical datin wk US Medications: PNV Flexeril prn Lantus 45U bedtime Humalog 15U labs: O+/ab neg GBS unkn, collected today Rubella imm Varicella imm Gonorrhea/Chlamydia unkn, collected today Hep B neg RPR neg HIV neg Allergies Vicodin; hives Review of systems: HEENT: Denies SINCLAIR, change in vision Heart: Denies CP Lungs: Denies SOB GI: No N/V, diarrhea Psych: No SI/HI Physical exam: Vitals Signs Minimum Maximum Temp36.7(MAR 05 10:13)36.7(MAR 05 10:13)36.7(MAR 05 10:13) Heart Rate88(MAR 05 10:13)88(MAR 05 10:13)88(MAR 05 10:13) Resp Rate18(MAR 05 10:13)18(MAR 05 10:13)18(MAR 05 10:13) SBPH 154(MAR 05 10:13)H 154(MAR 05 10:13)H 154(MAR 05 10:13) DBPC 108(MAR 05 10:13)C 108(MAR 05 10:13)C 108(MAR 05 10:13) GENERAL: NAD, A&O x3 NEUROLOGICAL: A&Ox3, CN II-XII grossly intact HEENT: EOMI, mucus membranes moist CARDIOVASCULAR: No JVD RESPIRATORY: No increased work of breathing ABDOMEN: soft, gravid, nontender EXREMETIES: No peripheral edema CE: 80/0 FHT: 135/mod variability/-accel/-decels TOCO: q 2 minutes SSE: deferred BSUS: Cephalic Impression: 26 yo at 39/3 wks presents to L&D for contractions, found to be in active labor, is complicated by GDMA2, anxiety, GERD, tobacco use disorder, and sciatic nerve pain. Scant care. Plan: Admit for active labor -Admit to L&D -CEFM -Routine orders -Anesthesia to see -GBS unkn, collected today -PT desires epidural -No augmentation needed at this time GDMA2 -Fingerstick glucose pending on admission; 112 -For q2 hour checks during active labor -Current medication regimen prior to admission Lantus 45U nighttime, Humalog 15U TID -11/23/21 Hg A1c 7.2% -Most recent growth US seen 32 wks; EFW 1945g 49%, AC 52%. Other apts were missed. Anxiety -Stable without medications GERD -Stable with pepcid Tobacco use disorder -Patch available on request Sciatic nerve pain -Well controlled during with flexeril prn Scant care -Pt has not been seen in clinic over the past 8 weeks -Collected 36 wks labs in triage -Consider SSC -Will recommend tox screen to patient D/w Dr. Ferrell, aware of admission Digitally Signed by GISELLE BROWNE MD on 03/05/2022 10:20 AM [id number] Discharge instructions Patient Education 01/18/2022 06:55:38 7 - Labor and Delivery Outpatient Instructions(CUSTOM) [facility]-GOING INSTRUCTIONS _X_ You are to follow up with your physician in as scheduled ACTIVITY ___ Bedrest _X__Activity as tolerated ___ No work/school for ___ days. ___Other PRESCRIPTION GIVEN ___Yes NAUSEA/VOMITING ___ Take small, frequent amounts of clear liquids. Avoid fruit juices and milk. ___ Increase fluid intake to a minimum of 8 ounces of fluid every hour while awake. ___ Soft diet. Rice, crackers, bananas, Jell-O, cooked carrots, applesauce. ___ Kelliher diet. Avoid caffeine, chocolate, alcohol, spiced/greasy foods. URINARY TRACT INFECTION ___ Drink 8-12 glasses of water every day. ___ Urinate frequently; do not limit fluids to reduce frequency of urination. ___ Call your physician if burning and frequency with urination returns after taking all your medication. ___ Call your physician if you have a temperature of 100.4 degrees Fahrenheit or higher. ___ Wipe from front to back. SIGNS OF PRE-ECLAMPSIA ___ Severe heartburn. ___ Persistent headache not relieved by Tylenol. ___ Increased in swelling of face, hands and feet. ___ Blurred vision, double vision, or spots in the eyes. ___ Persistent vomiting. ___ *Convulsions or seizures. LABOR ___ Restrict activity. _X__ Drink 8-12 glasses of water every day. __X_ Urinate frequently ___ Pelvic rest. No sexual intercourse/ Call your physician if you experience: X___ Increase in vaginal discharge, leaking fluid, or vaginal bleeding. _X__ More than 4, 5, or 6 contractions in one hour. _X__ Burning and frequency with urination. DECREASED MOVEMENT _X__ Lie down on your left side, drink some fluids and relax. Count the movements. You need to have 10 movements in 2 hours. _X__ If you do not feel the 10 movements, call your physician. OTHER ___ After an exam you may experience some spotting or discharge. As long as it is not bright red and heavy like a period or continues to leak as if your water broke, it is to be expected. ___ LABOR Call your physician if you experience: ___ Painful uterine contractions every ___ minutes for ___ hours. ___A gush or continuous trickle of watery discharge. COME TO THE HOSPITAL AND CALL PHYSICIAN IF: ___ Your abdomen feels continually firm. ___ *Bleeding is bright red and enough to saturate a pad in one hour or less. *Call 911 or go to the nearest Emergency Room for assistance. Form 422103 D: 07/07 Document Released: 07/16/2006 Document Revised: 07/04/2012 Document Reviewed: 07/16/2006 [facility] Patient Information 2011 [employer] [facility]. Follow Up Care 01/17/2022 14:26:45 With:GATITO ODOM DO Address: [address] [place] [phone] When: Unknown Comments:Follow-up as scheduled [facility] 01-09-2022 Hospital Discharge instructions Patient Education 08/07/2021 16:43:53 Planning to Quit Smoking Planning to Quit Smoking Your healthcare provider may have told you that you need to give up tobacco. Only you can decide ifand when you are ready to quit. Quitting is hard to do. But the benefits will be worth it. When youdecide to quit, come up with a plan that s right for you. Discuss your plan with your healthcare provider. And talk with your provider about medicines to help you quit. Line up support To quit smoking, you ll need a plan and some help. Pick a date in the next 2 to 4 weeks to quit. Use the time between now and that date to arrange for support. Classes and counselors. Quit-smoking classes assistant strength coach people like you through the process. Get to knowothers in a class. And support each other beyond the class. Phone counseling also helps you keep ontrack. Ask your healthcare provider, local hospital, or public health department to put you in touch with a class and a phone counselor. Family and friends. Tell your family and friends about your quit date. Ask them to support your change. If they smoke, only see them in smoke-free places. Don't allow smoking in your home and car. Be careful with these products Finding something to replace cigarettes may be hard to do. Some things may be as harmful as cigarettes. These include: Smokeless (chewing) tobacco. This is just as harmful as regular tobacco. Tobacco should not be usedas a substitute for cigarettes. Herbal medicines or teas. These may affect how your body handles nicotine. Talk with your healthcare provider before using these products. E-cigarettes. These have less toxins than the smoke from a regular cigarette. But the FDA says thatthese devices may still have substances that can cause cancer. E-cigarettes are not well regulated.They have not been studied enough to know if they are a good aid to help you stop smoking. Talk with your healthcare provider before using these products. Quit-smoking products Many products can help you quit smoking. Some are prescription medicines that help curb your cravings and withdrawal symptoms. Other products slowly lessen the level of nicotine your body absorbs. Nicotine is the highly addictive substance found in cigarettes, cigars, and chewing tobacco. Nicotine replacement products can help get your body used to slowly decreasing amounts of nicotine after you quit smoking. These products include a nicotine patch, gum, lozenge, nasal spray, and inhaler. Always follow the directions for your medicine or product carefully. Your healthcare provider may tell you to start taking the prescription medicine a week before you plan to quit. Don't smoke while you use nicotine products. Doing so can harm your health. For more information National Cancer [place] Smoking Quitline, smokefree.gov/hbiuj-hl-df-expert, 007-78S-DPXR (504-867-4274) 7460-1479 [employer]. [address] [place] [address]. All rights reserved. This information is not intended as a substitute for professional medical care. Always follow yourhealthcare professional's instructions. 08/07/2021 16:43:50 Dental Cavity Dental Cavity A dental cavity is a pit or crater in the surface of a tooth. This exposes the sensitive inner layer of the tooth and causes pain. If the cavity isn t treated, it will get bigger. It may enter the pulp and cause an infection or abscess in the bone at the root end (apex) of the tooth. An infection in the tooth is a much more serious problem than a cavity. If the tooth gets infected, you will need a root canal or the entire tooth taken out (extraction). The pain in your tooth may be made worse by eating sweets or drinking hot or cold beverages. It mayspread from the tooth to your ear or the area of your jaw on the same side. Home care Follow these tips when caring for yourself at home: Don't have sweets and hot and cold foods and drinks. Your tooth may be sensitive to changes in temperature. If your tooth is chipped or cracked, or if there is a large open cavity, put oil of cloves directlyon the tooth to relieve pain. You can buy oil of cloves at drugstores. Some pharmacies carry an zyhh-sqg-ztpwpbc toothache kit. This contains a paste that you can put on the exposed tooth to make it less sensitive. Put a cold pack on your jaw over the sore area to help reduce pain. You may use lohz-byx-tlpouhn medicine to ease pain, unless another medicine was prescribed. If you have chronic liver or kidney disease, talk with your healthcare provider before using acetaminophen or ibuprofen. Also talk with your provider if you ve had a stomach ulcer or GI bleeding. If you have signs of an infection, you will be given an antibiotic. Take it as directed. Follow-up care Follow up with your dentist, or as advised. Your pain may go away with the treatment given today. But only a dentist can fully look at and treat this problem to prevent further tooth damage. Call 911 Call 911 if any of these occur: Difficulty swallowing or breathing Weakness or fainting Unusual drowsiness Headache or stiff neck When to seek medical advice Call your healthcare provider right away if any of these occur: Redness or swelling of the face Pain gets worse or spreads to your neck Fever of 100.4 F (38 C) or higher, or as directed by your healthcare provider Pus drains from the tooth or gum 2970-6517 [employer]. [address] [place] [address]. All rights reserved. This information is not intended as a substitute for professional medical care. Always follow yourhealthcare professional's instructions. Follow Up Care 08/07/2021 16:21:41 With:Dental Referral List Address:Unknown When:2-4 days [facility] 10-20-2021 Hospital Discharge instructions Patient Education 05/18/2021 12:31:57 Viral Syndrome (Adult) Viral Syndrome (Adult) A viral illness may cause a number of symptoms such as fever. Other symptoms depend on the part of the body that the virus affects. If it settles in your nose, throat, and lungs, it may cause cough, sore throat, congestion, runny nose, headache, earache and other ear symptoms, or shortness of breath. If it settles in your stomach and intestinal tract, it may cause nausea, vomiting, cramping, and diarrhea. Sometimes it causes generalized symptoms like aching all over, feeling tired, loss of energy, or loss of appetite. A viral illness usually lasts anywhere from several days to several weeks, but sometimes it lasts longer. In some cases, a more serious infection can look like a viral syndrome in the first few days of the illness. You may need another exam and additional tests to know the difference. Watch for thewarning signs listed below for when to seek medical advice. Home care Follow these guidelines for taking care of yourself at home: If symptoms are severe, rest at home for the first 2 to 3 days. Stay away from cigarette smoke - both your smoke and the smoke from others. You may use qspy-btd-tseevhh acetaminophen or ibuprofen for fever, muscle aching, and headache, unless another medicine was prescribed for this. If you have chronic liver or kidney disease or ever had a stomach ulcer or gastrointestinal bleeding, talk with your healthcare provider before using these medicines. No one who is younger than 18 and ill with a fever should take aspirin. It may cause severe disease or . Your appetite may be poor, so a light diet is fine. Avoid dehydration by drinking 8 to 12, 8-ounce glasses of fluids each day. This may include water; orange juice; lemonade; apple, grape, and cranberry juice; clear fruit drinks; electrolyte replacement and sports drinks; and decaffeinated teas andcoffee. If you have been diagnosed with a kidney disease, ask your healthcare provider how much andwhat types of fluids you should drink to prevent dehydration. If you have kidney disease, drinking too much fluid can cause it build up in the your body and be dangerous to your health. Aylo-lur-mtughio remedies won't shorten the length of the illness but may be helpful for symptoms such as cough, sore throat, nasal and sinus congestion, or diarrhea. Don't use decongestants if you have high blood pressure. Follow-up care Follow up with your healthcare provider if you do not improve over the next week. Call 911 Call 911 if any of the following occur: Convulsion Feeling weak, dizzy, or like you are going to faint Chest pain, or more than mild shortness of breath When to seek medical advice Call your healthcare provider right away if any of these occur: Cough with lots of colored sputum (mucus) or blood in your sputum Chest pain, shortness of breath, wheezing, or trouble breathing Severe headache; face, neck, or ear pain Severe, constant pain in the lower right side of your belly (abdominal) Continued vomiting (can t keep liquids down) Frequent diarrhea (more than 5 times a day); blood (red or black color) or mucus in diarrhea Feeling weak, dizzy, or like you are going to faint Extreme thirst Fever of 100.4 F (38 C) or higher, or as directed by your healthcare provider [id number] [employer]. [address] [place] [address]. All rights reserved. This information is not intended as a substitute for professional medical care. Always follow yourhealthcare professional's instructions. Follow Up Care 05/18/2021 12:09:33 With:Call Physician Referral Address:Unknown When:2-4 days [facility] 08-17-2021 Hospital Discharge instructions* Instructions* Carlitos English, YANNICK - ENVIRONMENTAL HEALTH AND SAFETY LEADER - 03/15/2021 In the medical field, there is always a level of diagnostic uncertainty, even if this uncertainty is low. For this reason, it is important to immediately return to the emergency department if you have any new symptoms, worsening symptoms, change of symptoms, or if you have any other concerns. We would be happy to re- evaluate you. Otherwise, please take your medications as prescribed and follow-upas recommended. * Attachments The following attachments cannot be sent through Care Everywhere. * Cough (Nigerian) documented in this [facility] Work Phone: [phone]) 144-530408-09-2021 Taisha independently performed a history and physical on Lisa Mesa. All diagnostic, treatment, and disposition decisions were made by myself in conjunction with the advanced practice provider/resident. Brief History of Present Illness: Patient presents for evaluation of shortness of breath and heart racing. This occurred shortly after using ecstasy. She took a whole tablet when previously she only took a partial tablet. She feels like her heart is racing and has chest tightness. Feels short of breath. She felt like she was going to pass out and she came to the hospital. She states that she feels somewhat better upon my assessment but still does not feel normal. She denied any other drug use. Admitted to a small amount of alcohol. She denies any nausea, vomiting, rash, swelling, fevers, cough or cold. Focused Physical Examination: Triage vital signs with tachypnea and tachycardia. Tachycardic rate and regular rythm. No murmurs. Lungs clear to auscultation bilaterally without increased work of breathing. abdomen is soft. Emergency Department Course and Medical Decision Making: Patient presents for evaluation of not feeling well after drug use. Presents with tachycardia and tachypnea likely a sympathomimetic toxidrome from the ecstasy. Cardiac and metabolic work-up initiated. Treated with a fluid bolus and Ativan. Interpretation 12 EKG 0024 regular rhythm tachycardic rate 142 bpm. TN interval prolonged 220 milliseconds. QRS complex narrow. QTC normal. No ST segment elevations or depressions. No abnormal T-wave inversions. Good R-wave progression through precordial leads. Interpretation of this EKG myself in the absence of a skip hoist engineer is first-degree AV block, sinus tachycardia. Interpretation of Diagnostic Laboratory Studies and Tests: negative. Troponin negative. Metabolic panel without any significant electrolyte abnormalities. Renal function normal. CBC showed no leukocytosis or leukopenia. Hb without anemia. Platelets without thrombocytopenia or thrombocytosis. urinalysis was concerning for possible infection. Patient had complained that she had some urinary frequency and some foul odor. She also has some pain at the end of her urination. Appears to have some symptoms for UTI. Will be treated for cystitis with Macrobid. Patient received her medications and her heart rate came down to under 100. Believes she is out of the danger zone for the toxidrome. Believe she can continue to metabolize the ecstasy at home but safely. Will be discharged for outpatient follow-up. Advised to return for new worsening symptoms. Told to refrain from any further drug use. Discharged with a prescription for Macrobid. For further details of Lisa Mesa's emergency department encounter, please see documentation by advanced practice provider/resident Sherin Dawkins NP. Comment: Please note this report has been produced using speech recognition software and may contain errors related to that system including errors in grammar, punctuation, and spelling, as well as words and phrases that may be inappropriate. If there are any questions or concerns please feel free to contact the dictating provider for clarification. Isreal Kincaid MD 03/07/[address] [place], [place] [address]Evaluation + Plan note No data available for this section [facility] Evaluation + Plan note Future Appointments Appointment Date:05/26/2024 01:30:00 PM Scheduled Provider:ARLINE CORADO Location:[facility] Appointment Type:PC OV Follow Up [facility] Evaluation + Plan note Future Appointments Appointment Date:11/21/2024 03:30:00 PM Scheduled Provider:ARLINE CORADO Location:[facility] Appointment Type:PC OV Follow Up Future Scheduled Tests Laboratory* Thyroid Stimulating Hormone 04/25/24 * Free T4 04/25/24 * Free T3 04/25/24 Radiology* US Breast Left Complete 09/15/24 [facility] Evaluation note* Diagnosis 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, unspecified Acute cystitis with hematuria Acute cystitis documented in this encounter [email or web address] Work Phone: evaluation note* Diagnosis Cough- Primary Vaginal discharge Leukorrhea, not specified as infective documented in this encounter [employer] Phone: evaluation note* Diagnosis Hypertension, unspecified type- Primary documented in this encounter [facility] Work Phone: evaluation note* Diagnosis Numbness- Primary Disturbance of skin sensation documented in this encounter [facility] note* Diagnosis with uncertain viability, single or unspecified fetus- Primary with uncertain dates in first trimester documented in this encounter [facility] note* Diagnosis Positive test- Primary examination or test, positive result Threatened miscarriage Threatened , unspecified as to episode of care with uncertain dates in first trimester Spotting affecting in first trimester documented in this encounter [facility] note* Diagnosis with uncertain dates in first trimester documented in this encounter [facility] note* Diagnosis Incomplete - Primary Unspecified , without mention of complication, incomplete Threatened miscarriage Threatened , unspecified as to episode of care [facility]* Instructions* Isreal Kincaid MD - 03/07/2021 [facility] Long-term residential drug and alcohol rehabilitation services [address] [facility] [phone] [facility] crisis Center 24 hour detox and drop in. Central assessment 8 AM4 PM for adults. [address]. [phone] [employer]. Appointment only for outpatient treatment services M, W, Th 9AM-9PM, T F 9AM-530PM [address] [facility] [phone] Al-Anon and Alateen M-F 10AM-2PM [phone] or [phone] Alcoholics Anonymous [address] [facility] M-F 9AM-5 PM, Sa 9AM-1 PM [phone] [facility] Outpatient/Inpatient/Detox for adults [address] [facility] [phone] Adolescents Treatment/Detox [address] [facility] [phone] [facility] Alcohol and drug counseling and groups. [address] [place] [address] [facility] Drug, alcohol, gambling, and mental health treatment. M-F 8AM-4:30PM [address] [phone], ext [phone] Narcotics Anonymous 24 hour Hotline [id number] or [facility] Sober living housing, counseling, vocational education, job referral, recovery coaching [address] [facility] [phone] [facility] Drug [facility] Call for treatment appointment and prevention [address] [facility] [phone] * Attachments The following attachments cannot be sent through Care Everywhere. * UTI (Urinary Tract Infection): Female (Nigerian) * Substance Use Disorder (Nigerian) [facility]: Hospital Discharge instructions No data available for this section [facility] Discharge instructionsNo known hospital discharge instructions.[facility] Hospital Discharge instructions* Additional Discharge Instructions Contac t [facility] Office for appointment to be seen. Instruction/Education Provided DI for Va ginal Bleeding [facility] Progress note No data available for this section [facility] Reason for referral (narrative)* Diagnostic Procedure Only (Routine) - Authorized Specialty Diagnoses / Procedures Referred By Contac t Referred To Contact [facility] Diagnoses with uncertain dates in first trimester Procedures PELVIC US I US PELVIC NONOBSTETRIC REAL-TIME IMAGE COMPLETE Sushil Villanueva APRN.CNP [address] [place] [place] [address] [facility] [address] [place], [place] [id number] Referral ID Status Reason Start Date Expiration Date Visits Requested Visits Authorized [id number] Authorized Auto-Generat ed Referral 04/28/2024 04/28/2025 1 1 [facility] for visit Narrative* Diagnostic Procedure Only (Routine) - Closed Specialty Diagnoses / Procedures Referred By Contac t Referred To Contact [facility] Diagnoses with uncertain dates in first trimester Procedures PELVIC US I US PELVIC NONOBSTETRIC REAL-TIME IMAGE COMPLETE Sushil Villanueva APRN.CNP [address] [place] [place] [address] [facility] [address] [place] [address] Referral ID Status Reason Start Date Expiration Date V isits Requested Visits Authorized [id number] Closed Auto-Generate d Referral 04/28/2024 04/28/2025 1 1 [facility] Summary Purpose Family History No Family History Records FoundNo Family History Records FoundNo Family History Records FoundNo Family History Records FoundNo Family History Records FoundNo Family History Records FoundNo Family History Records FoundNo Family History Records Found No data available for this section No Family History Records FoundNo Family History Records FoundNo Family History Records FoundNo Family History Records FoundNo Family History Records FoundNo Family History Records Found No data available for this section No Family History Records Found Advance Directives No Advanced Directives Records FoundDocuments on File Type Date Recorded Patient Marinator Expl anation Advance Directive(s) 01/29/2019 3:31 PM Date Activated Date Inactivated Comments 12/09/2023 11:45 PM 12/11/2023 4:14 PM Question Answer Comments Full Code Order Discussed With: Patient Date Activated Date Inactivated Comments 12/09/2023 11:45 PM 12/11/2023 4:14 PM Question Answer Comments Full Code Order Discussed With: Patient Additional Source Comments INFORMATION SOURCE (unrecogn ized section and content) DATE CREATED AUTHOR 01/22/2018 [facility] DATE CREATED AUTHOR AUTHOR'S ORGANIZ ATION 05/05/2019 [facility] DATE CREATED AUTHOR AUTHOR'S ORGANIZ ATION 04/09/2021 [facility] DATE CREATED AUTHOR AUTHOR'S ORGANIZ ATION 12/07/2021 [facility] DATE CREATED AUTHOR AUTHOR'S ORGANIZ ATION 01/04/2022 [facility] [place] DATE CREATED AUTHOR AUTHOR'S ORGANIZ ATION 10/10/2022 [facility] DATE CREATED AUTHOR AUTHOR'S ORGANIZ ATION 10/18/2023 [facility] DATE CREATED AUTHOR AUTHOR'S ORGANIZ ATION 12/12/2023 [facility] DATE CREATED AUTHOR AUTHOR'S ORGANIZ ATION 03/22/2024 [facility] ([place] DATE CREATED AUTHOR AUTHOR'S ORGANIZ ATION 05/11/2024 [facility] DATE CREATED AUTHOR AUTHOR'S ORGANIZ ATION 06/01/20[facility] CREATED AUTHOR AUTHOR'S ORGANIZ ATION 08/14/2024 [facility] DATE CREATED AUTHOR AUTHOR'S ORGANIZ ATION 08/31/2024 [facility] DATE CREATED AUTHOR AUTHOR'S ORGANIZ ATION 09/04/2024 [facility] DATE CREATED AUTHOR AUTHOR'S ORGANIZ ATION 10/05/2024 [facility] Reason for Visit (unrecogniz ed section and content) Reason Comments Panic Attack Pt states she took e cstasy pill 1 hour ago and is now panicking. HR elevated in 140s, pt states shes never taken this drug before. EKG called to triage. Reason Comments Cough patient c/o cough an d trouble catching breath. cough is non-productive. chills. had negative covid 2 days ago. Reason Comments Hypertension Thinks she has diabe kiana and had hypertension in Reason Comments Numbness Reason Comments Missed menses Reason Comments Follow Up Viability US f/u Reason Comments Follow Up Reason Comments Results Ordered Prescriptions (unrec ognized section and content) Prescription Sig Dispensed Refills Start Date End Da te nitrofurantoin, macrocrystal-monohydrate , (MACROBID) 100 MG capsule Take 1 capsule by mouth 2 times daily for 5 days 10 capsule 0 03/07/2021 03/12/2021 Scheduled Active and Recently Administ ered Medications (unrecognized section and content) Medication Order 03/05/2021 2021 03/07/2021 0.9 % sodium chloride bolus (COMPLETED) 1,000 mL, Intravenous, at 2,000 mL/hr, Administer over 0.5 Hours, ONCE, On Sun03/07/21 at 0100, For 1 dose 0110 (New Bag - Prov ider: Scarlett Herrmann RN)0238 (Stopped - Provider: Scarlett Herrmann RN) LORazepam (ATIVAN) injection 1 mg (COMPLETED) 1 mg, Intravenous, ONCE, On Sun03/07/21 at 0100, For 1 dose 0110 (Given - Provid er: Scarlett Herrmann RN) nitrofurantoin (macrocrystal-monohydrate) (MACROBID) capsule 100 mg (COMPLETED) 100 mg, Oral, ONCE, On Sun03/07/21 at 0230, For 1 dose 0232 (Given - Provid er: Scarlett Herrmann RN) sodium chloride flush 0.9 % injection 3 mL(Linked Group 1) 3 mL, Intravenous, EVERY 8 HOURS, First dose on Sun03/07/21 at 0100, Flush line with 3-5 mL 0100 (Due)0900 (Due) 1700 (Due) Linked Groups Order Group 1: Saline lock IV (COMPLETED) Routine, CONTINUOUS, Starting on Sun03/07/21 at 0100, Until Specified And sodium chloride flush 0.9 % injection 3 mLJump to med 3 mL, Intravenous, EVERY 8 HOURS, First dose on Sun03/07/21 at 0100
Flush line with 3-5 mL
Scheduled Medication Order 03/13/2021 03/14/2021 03/15/2021 albuterol sulfate HFA 108 (90 Base) MCG/ACT inhaler 2 puff (COMPLETED) 2 puff, Inhalation, ONCE, On Sun03/15/21 at 2100, For 1 dose 2214 (Given - Provid er: Leti Beckett RN) cefTRIAXone (ROCEPHIN) 500 mg in lidocaine 1 % 1 mL IM Injection (COMPLETED) 500 mg, Intramuscular, ONCE, On Sun03/15/21 at 2100, For 1 dose 2147 (Given - Provid er: Leti Beckett RN) doxycycline monohydrate (MONODOX) capsule 100 mg (COMPLETED) 100 mg, Oral, ONCE, On Sun03/15/21 at 2100, For 1 dose, This medication can interact with tube feedings (TF)- obtain MD order to manage. Recommend holding TF for 1 h before and 2 h after dose. Take 1 h before or 2 h after dairy, calcium, iron, magnesium, aluminum or zinc. 2147 (Given - Provid er: Leti Beckett RN) metroNIDAZOLE (FLAGYL) tablet 2,000 mg (COMPLETED) 2,000 mg, Oral, ONCE, On Sun03/15/21 at 2100, For 1 dose 2147 (Given - Provid er: Leti Beckett RN) Scheduled Medication Order 09/24/2022 09/25/2022 09/26/2022 0.9 % sodium chloride bolus (COMPLETED) 1,000 mL (10.4 mL/kg), IntraVENous, at 495.9 mL/hr, Administer over 121 Minutes, ONCE, On Sun09/26/22 at 2044, For 1 dose 2102 (New Bag - Prov ider: Martha Varela RN)233 (Stopped - Provider: Martha Varela RN) PRN Medication Order 09/24/2022 09/25/2022 09/26/2022 iopamidol (ISOVUE-370) 76 % injection 75 mL (COMPLETED) 75 mL, IntraVENous, IMG ONCE PRN, 1 dose, Starting on Sun09/26/22 at 221, Until Sun09/26/22 at 2226, Other 2226 (Given - Provid er: Erica Avila - Comment: [id number] XP 04/23) Source Comments (unrecognize d section and content) In the event this informatio n is protected by the Federal Confidentiality of Alcohol and Drug Abuse Patient Records regulations: The Federal rules restrict any use of the information to criminally investigate or prosecute any alcohol or drug abuse patient.[facility] the event this information is protected by the Federal Confidentiality of Alcohol and Drug Abuse Patient Records regulations: The Federal rules restrict any use of the information to criminally investigate or prosecute any alcohol or drug abuse patient.[facility] Center[facility] the event this information is protected by the Federal Confidentiality of Alcohol and Drug Abuse Patient Records regulations: The Federal rules restrict any use of the information to criminally investigate or prosecute any alcohol or drug abuse patient.[facility] the event this information is protected by the Federal Confidentiality of Alcohol and Drug Abuse Patient Records regulations: The Federal rules restrict any use of the information to criminally investigate or prosecute any alcohol or drug abuse patient.[facility] Center[facility] the event this information is protected by the Federal Confidentiality of Alcohol and Drug Abuse Patient Records regulations: The Federal rules restrict any use of the information to criminally investigate or prosecute any alcohol or drug abuse patient.[facility] Center[facility] the event this information is protected by the Federal Confidentiality of Alcohol and Drug Abuse Patient Records regulations: The Federal rules restrict any use of the information to criminally investigate or prosecute any alcohol or drug abuse patient.[facility] Center[facility] the event this information is protected by the Federal Confidentiality of Alcohol and Drug Abuse Patient Records regulations: The Federal rules restrict any use of the information to criminally investigate or prosecute any alcohol or drug abuse patient.[facility] Care Team (unrecognized sect ion and content) Care Team Personnel Name: PHYSICIAN, NONE Position: AH Physician Member Role: Primary Care Physician Name: Joeclyn Ojeda RN Position: OB RN Member Role: RN Name: Chris Vidal RN Position: OB RN Member Role: RN Care Team Related Persons Name: DIANA COLON Address: [address] [place] [address] Name: DIANA COLON Address: [address] [place] [address] Name: JANINE MESA-GENARO Address: Home [address] Name: CARA BARCENAS Name: CARA BARCENAS Name: CARA BARCENAS Name: CARA BARCENAS Name: AMELIA LANDEROS Address: Home [address] Care Teams (unrecognized sec tion and content) Channel Cementer Relationship Specialty Start Date End Date PcpEstrella APRN PCP - [facility] 02/05/24 08/29/24 Care Team Personnel Name: ARLINE CORADO APRN-ENVIRONMENTAL HEALTH AND SAFETY LEADER Position: P4 [employer] Ticket Sales Member Role: Primary Care Physician Address: Address: [facility] [facility] [place] [address]- Care Team Related Persons Name: CARA BARCENAS Channel Cementer Relationship Specialty Start Date End Date PcpEstrella APRN PCP - [facility] 08/25/23 03/29/24 FOR RECORDS PERTAINING TO PATIENTS WHO ARE OR HAVE BEEN ENROLLED IN A CHEMICAL DEPENDENCY/SUBSTANCEABUSE PROGRAM, SOME INFORMATION MAY BE OMITTED. This clinical summary was aggregated from multiple sources. Caution should be exercised in using it in the provision of clinical care. This summary normalizes information from multiple sources, and as a consequence, information in this document may materially change the coding, format and clinical context of patient data. In addition, data may be omitted in some cases. CLINICAL DECISIONS SHOULD BE BASED ON THE PRIMARY CLINICAL RECORDS. [facility] [employer] provides no warranty or guarantee of the accuracy or completeness of information in this document.
--- NOTE | 2025-01-11 22:55 | EDS_ITS ---
HPI History of Present Illness Chief Complaint: Numb/Ting Informant: patient Onset/Context/Timing Onset: Today Narrative Narrative: 29-year-old female history of anxiety,. Seizures and prediabetes. Says she has felt lightheaded. Has had some dark stool. In mild facial tingling. Says it feels like her head is squeezing. Had similar symptoms in the past with a negative workup done at [facility] 1 to 2 years ago. She denies any nausea, vomiting or diarrhea. No dysuria. No fever. She is on no blood thinners. Prior similar symptoms: Yes Recent Illness/Hospitalization: No PFSH PFSH Medical History Anxiety Paresthesias Cervical radiculopathy Cervicalgia Home Medications ?Medication ?Instructions ?Recorded ?Last Taken ?Type metformin 500 mg tablet 500 mg PO DAILY 04/03/24 Unk nown History ibuprofen 600 mg tablet 600 mg PO Q6H PRN PRN fever or 07/12/24 Unknown Rx pain #20 TABLETS clindamycin HCl 300 mg capsule 300 mg PO 4X/DAY 7 days #28 caps 08/08/24 Unknown Rx Allergy/AdvReac Type Severity Reaction Status Date / Time acetaminophen (From Vicodin) Allergy Hives Verified 01/11/25 21:48 hydrocodone (From Vicodin) Allergy Hives Verified 01/11/25 21:48 Family History Other Cancer Diabetes Seizures Social History Smoking Status: Former smoker quit date: 05/30/21 Tobacco: How many years used: 6 second hand exposure: Yes alcohol intake: current alcohol intake frequency: holidays/special occasions only substance use type: former substance user Date of last use: used some marijuana in the past ROS ROS ED ROS Narrative Denies recent illness. Constitutional Constitutional ED: Denies anorexia Eyes Eyes: Denies burning ENT ENT ED: Reports none Cardiovascular Cardiovascular: Reports none Respiratory/Chest Respiratory/Chest: Reports none Gastrointestinal Gastrointestinal: Reports other Details: Reportedly dark stool. Genitourinary Genitourinary ED: Reports none Musculoskeletal Musculoskeletal: Reports none Integumentary Reports none Neurologic Neurologic: Reports paresthesias Psychiatric Psychiatric: Reports none Endocrine Endocrinology: Reports none Hematologic/Lymphatic Hematologic/Lymphatic: Reports none Allergic/Immunologic Allergic/Immunologic ED: Reports none EXAM Physical Exam Narrative Exam Narrative: 29-year-old female no acute distress. Vital signs stable afebrile blood pressure is little elevated 150 or 97. She does not look septic toxic she has no distress. Multiple family members around the bedside. H EENT exam pupils round react light. No facial droop. Normal speech. Extraocular motions are intact. Neck nontender. Lungs clear. Heart regular rhythm no murmur. Rate about 100. Abdomen soft nontender. Normal bowel sounds no peritoneal signs. Moving all 4 extremities. Nontender no edema normal strength. Back nontender. Neurologic exam normal. NIH 0. No facial droop. 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 Finger tip to nose [id number] within normal limits. No drift. Const Vital Signs: 01/11/25 21:48 01/11/25 21:52 01/11/25 23:16 Temperature 98.5 F 98.5 F 97.9 F Temperature Source Oral Oral Temporal Pulse Rate 106 H 106 H 80 Respiratory Rate 20 H 20 H 16 Blood Pressure 158/97 H 158/97 H 136/94 H Blood Pressure Mean 117 117 108 Pulse Ox 100 100 97 Oxygen Delivery Method Room Air Room Air 01/12/25 00:00 01/12/25 01:00 Temperature 98 F Temperature Source Oral Pulse Rate 87 Respiratory Rate 18 16 Blood Pressure 108/86 H 111/78 Blood Pressure Mean 93 89 Pulse Ox 98 78 Oxygen Delivery Method Room Air Room Air Positive well nourished, well developed, alert, oriented x3, no apparent distress, no limitations and healthy appearing; Negative for cachectic, contractures or unkempt General Appearance ED: active, cooperative, comfortable, well kempt and well developed; Negative for unkempt, cachectic or contractures Nutritional Appearance: Negative for cachectic HEENT Reports normocephalic and head/scalp atraumatic normocephalic Face and Sinus: normal facial exam Nose: external nose normal External Ear: external ears normal Mouth ED: Yes oral and palatal mucosa normal Mouth: oral and palatal mucosa normal Throat: posterior oropharynx normal Eyes PERRL, EOMs intact bilaterally and no scleral icterus General Eye ED: Yes normal appearance of both eyes Pupil: PERRL Neck full ROM, no lymphadenopathy, supple, no meningeal signs and no JVD Lymph Lymphatic: no lymphadenopathy noted and no lymphedema noted Chest Wall inspection of chest normal and palpation of chest normal Resp normal respiratory effort, normal air movement, no retractions, no use of accessory muscles and clear to auscultation bilaterally Cardio regular rate, regular rhythm, S1 normal heart sound, S2 normal heart sound, no murmurs, no rub, no gallops, no clicks and no JVD Rate: regular rate Rhythm: regular rhythm GI normal to inspection, nondistended, normoactive bowel sounds, soft to palpation, non-tender, non-distended, no masses and no bruits Back/Spine no CVA tenderness and no thoracic nor lumbar tenderness Extremity normal to inspection, full ROM, no joint enlargement, no calf tenderness and no pedal edema Neuro oriented x3, CN's II-XII intact bilaterally, moves all extremities, no focal motor deficits, no sensory deficits noted and deep tendon reflexes 2+ bilaterally Sensorium / Orientation: awake, alert, oriented to person, oriented to place and oriented to time; Negative for orientation impaired Speech: speech normal Motor Exam: strength 5/5 throughout Coordination: [id number] test normal and [id number] test normal Psych mental status grossly normal, thought process normal, cooperative, affect normal, speech normal and activity/motor behavior normal Appearance: grossly normal; Negative for unkempt Attitude: calm and engaged Activity / Motor Behavior: appropriate eye contact Speech: normal speech Mood & Affect: euthymic mood Thought Process: normal thought process Memory / Cognition: memory grossly intact Skin no rashes or lesions noted, no wounds, skin turgor normal, no jaundice, no petechiae and no mottling General Skin Exam: no breakdown Lesions: no lesions Rashes: no rashes MDM MDM MDM Narrative Medical decision making narrative: Well-appearing 29-year-old female. Complaining of dark stool. Check CBC. Player facial paresthesia but has a completely normal neurologic exam. CT of her brain and electrolytes will be obtained. Repeat exam patient doing well around 1:42 AM. We went over her test results including her CAT scan which was unremarkable. Repeat exams unchanged and normal. Normal neurologic exam. She will be discharged home with outpatient follow-up. History & Record Review Discussion w/independent historian: Patient Additional record(s) reviewed:: Prior inpatient record, Prior outpatient record, Prior ED visit and Prior labs Lab Data Attestation: I reviewed the patient's lab results. Lab results narrative: CBC shows a white count of 6. H&H 11.1 and 34 she runs her chronic anemia this is actually better than her baseline. Platelets 208. Electrolytes show sodium 138. Gap 10. Normal BUN and creatinine. Glucose 133. Labs: Laboratory Results - last 24 hr 01/11/25 23:17 WBC 6.9 RBC 4.03 L Hgb 11.1 L Hct 34.5 L MCV 85.6 MCH 27.5 MCHC 32.2 RDW Std Deviation 45.6 H RDW Coeff of Ghada 14.7 H Plt Count 208 MPV 10.6 Immature Gran % (Auto) 0.300 Neut % (Auto) 54.7 Lymph % (Auto) 34.7 [place] % (Auto) 7.3 Eos % (Auto) 2.6 Baso % (Auto) 0.4 Absolute Neuts (auto) 3.8 Absolute Lymphs (auto) 2.39 Nucleated RBC % 0 Sodium 138 Potassium 3.9 Chloride 106 Carbon Dioxide 22.4 Anion Gap 10 BUN 11 Creatinine 0.73 Estim Creat Clear Calc 149.34 Est GFR (MDRD) Non-Af 114 BUN/Creatinine Ratio 14.5 Glucose 133 H Calcium 9.3 Radiography Diagnostic Testing: Clinical Impression(s) from Imaging Studies Brain CT 01/11/25 23:20 IMPRESSION: No acute intracranial process. Reading Location: [facility] Discharge Plan Triage Chief Complaint: Numb/Ting Other Complaint: Complaint ED Provider: Oseas Aviles Dx/Rx/DC Orders Clinical Impression: Paresthesia Instructions: ED Paraesthesias Prescriptions: No Action metformin 500 mg tablet 500 mg PO DAILY ibuprofen 600 mg tablet 600 mg PO Q6H PRN PRN (Reason: fever or pain) Qty: 20 0RF clindamycin HCl 300 mg capsule 300 mg PO 4X/DAY 7 Days Qty: 28 0RF Primary Care Provider: Care Physician,No Primary Referrals: Care Physician,No Primary [Primary Care Provider] - Activity Restrictions/Additional Instructions: Your labs and CAT scan were all good. Follow-up with your primary care physician. Print Language: Sudanese Disposition Disposition: Home, Self Care
[2025-01-11 23:16] VITALS: BP 136/94; PULSE 80; RESP 16; TEMP 36.6; O2SAT 97
--- NOTE | 2025-01-11 23:20 | CT_ITS ---
PROCEDURE: BRAIN/HEAD WITHOUT CONTRAST 01/11/2025 REASON FOR EXAM: FACIAL NUMBNESS TECHNIQUE: BRAIN/HEAD WITHOUT CONTRAST Coronal and Sagittal reconstruction series were provided. One or more dose reduction techniques were used (e.g., Automated exposure control, adjustment of the mA and/or kV according to patient size, use of iterative reconstruction technique. RADIATION DOSE SUMMARY: DLP: 830 mGycm COMPARISON: 05/18/24 FINDINGS: There is no acute infarct, intracranial hemorrhage, or mass effect. There is no hydrocephalus or significant midline shift. No acute, depressed calvarial fractures. No large scalp hematomas. CT/Brain/Head without Contrast IMPRESSION: No acute intracranial process. Reading Location: [id number]
[2025-01-11 23:22] LABS: Absolute Lymphocyte Count 2.39 X10^3/uL (0.83-4.51); Absolute Neutrophil Count 3.8 X10^3/uL (2.0-7.7); Basophil# 0.03 X10^3/uL; Basophil% 0.4 % (0-1); Eosinophil# 0.18 X10^3/uL; Eosinophils% 2.6 % (0-5); Hematocrit 34.5 % (37-47); Hemoglobin 11.1 g/dL (12.0-15.0); Lymphocyte # 2.39 X10^3/ul (0.83-4.51); Lymphocyte % 34.7 % (19-41); Mean Corp Hgb Conc 32.2 g/dL (32-36); Mean Corpuscular Hgb 27.5 pg (27.0-32.0); Mean Corpuscular Volume 85.6 fL (81-99); Mean Platelet Vol. 10.6 fl (6.2-12.0); Monocyte% 7.3 % (0-10); NRBC Flagged by Analyzer 0 % (0-5); Neutrophil # 3.76 X10^3/uL (2.7-7.7); Neutrophil % 54.7 % (47-70); Platelet Count 208 K/mm3 (150-450); RBC Distribution Width CV 14.7 % (11.6-14.6); RBC Distribution Width SD 45.6 fl (35.1-43.9); Red Blood Count 4.03 M/mm3 (4.2-5.4); White Blood Count 6.9 K/mm3 (4.4-11.0)
[2025-01-11 23:45] LABS: Anion Gap 10 (5-15); BUN 11 mg/dL (4-19); BUN/Creat Ratio 14.5 RATIO (10-20); Calcium,Total 9.3 mg/dL (7.6-11.0); Carbon Dioxide 22.4 mmol/L (21.0-32.0); Chloride 106 mmol/L (98-108); Creatinine, Serum 0.73 mg/dL (0.70-1.20); EST Glomerular Filtration Rate 114 (>60); Estimated Creatinine Clearance 149.34 ml/min (50-250); Glucose 133 mg/dL (70-99); Potassium 3.9 mmol/L (3.3-5.1); Sodium Level 138 mmol/L (133-145)
[2025-01-12] VITALS: BP 108/86; PULSE 87; RESP 18; TEMP 36.6; O2SAT 98
[2025-01-12 01:00] VITALS: BP 111/78; RESP 16; O2SAT 78
[2025-01-12 01:55] VITALS: BP 122/73; PULSE 78; RESP 14; TEMP 36.7; O2SAT 100
== END 2025-01-12 01:56 | disposition home or self-care (01) ==
PROVIDERS: Emergency Provider Emergency Medicine; Visit Provider Emergency Medicine
DX: R20.2 Paresthesia of skin (principal); G40.909 Epilepsy, unspecified, not intractable, without status epilepticus; R20.0 Anesthesia of skin; D64.9 Anemia, unspecified; F41.9 Anxiety disorder, unspecified; R73.03 Prediabetes; M54.12 Radiculopathy, cervical region; Z79.84 Long term (current) use of oral hypoglycemic drugs; Z87.891 Personal history of nicotine dependence
CPT/HCPCS: 70450; 80048; 85025; 99284; A4216

== ENCOUNTER 2025-02-05 01:12 | Emergency (ER) | payer MEDICAID, SELFPAY ==
[2025-02-05 01:12] VITALS: BP 147/105; PULSE 93; RESP 16; TEMP 37.1; O2SAT 100; BMI 33.3
--- NOTE | 2025-02-05 02:33 | CT_ITS ---
PROCEDURE: BRAIN/HEAD WITHOUT CONTRAST 02/05/2025 REASON FOR EXAM: HEAD INJURY TECHNIQUE: BRAIN/HEAD WITHOUT CONTRAST Coronal and Sagittal reconstruction series were provided. One or more dose reduction techniques were used (e.g., Automated exposure control, adjustment of the mA and/or kV according to patient size, use of iterative reconstruction technique. RADIATION DOSE SUMMARY: CTDlvol: mGy DLP: mGycm COMPARISON: 01-11-2025 FINDINGS: The visualized brain parenchyma shows normal appearance. No focal parenchymal abnormalities are demonstrated. Steward-white matter differentiation is maintained. Normal CT appearance of the posterior fossa structures. No intracerebral or extra-axial hemorrhage. No midline shifts or deformity. Normal size and configuration of the cerebral ventricles. No definite calvarial fractures. The osseous structures in the skull base are unremarkable. Paranasal sinuses are unremarkable. CT/Brain/Head without Contrast IMPRESSION: No intracerebral or extra-axial hemorrhage. No acute cerebrovascular insult. If there is high clinical suspicion, correlate to MRI Reading Location: [facility]
--- NOTE | 2025-02-05 02:52 | EX.ED.DYSGE1 ---
HPI History of Present Illness Chief Complaint: Head Injury Informant: patient Narrative Narrative: Patient is a 29-year-old female with past medical history of anxiety. She states that she was visiting her mother today in the hospital. She reports that on 3 separate occasions she was bending over and when she stood up she struck the right side of her head against the TV by accident. She states there was no loss of consciousness and she denies any history of bleeding disorder or blood thinner use. She states that after 3 time she has soft tissue swelling and pain. She states she is concerned she may have a bleed and with this presents for evaluation [facility] Medical History Anxiety Paresthesias Cervical radiculopathy Cervicalgia Home Medications ?Medication ?Instructions ?Recorded ?Last Taken ?Type metformin 500 mg tablet 500 mg PO DAILY 04/03/24 Unknown History ibuprofen 600 mg tablet 600 mg PO 4X/DAY PRN pain #40 tabs 02/05/25 Unknown Rx Allergy/AdvReac Type Severity Reaction Status Date / Time acetaminophen (From Vicodin) Allergy Hives Verified 02/05/25 01:18 hydrocodone (From Vicodin) Allergy Hives Verified 02/05/25 01:18 Family History Other Cancer Diabetes Seizures Social History Smoking Status: Current every day smoker tobacco type: cigarettes Tobacco: How many years used: 6 second hand exposure: Yes alcohol intake: current alcohol intake frequency: holidays/special occasions only substance use type: former substance user Date of last use: used some marijuana in the past ROS ROS ED Constitutional Constitutional ED: Denies chills or fever(s) Eyes Eyes: Reports other Details: Negative photophobia ; Denies blurry vision or change in vision ENT ENT ED: Denies sore throat Cardiovascular Cardiovascular: Reports other Details: Negative syncope ; Denies chest pain Respiratory/Chest Respiratory/Chest: Denies cough or dyspnea Gastrointestinal Gastrointestinal: Denies abdominal pain, diarrhea, nausea or vomiting Musculoskeletal Musculoskeletal: Denies neck pain Integumentary Denies rash Neurologic Neurologic: Denies headache(s) Hematologic/Lymphatic Hematologic/Lymphatic: Denies easy bleeding or easy bruising EXAM Physical Exam Const Vital Signs: 02/05/25 01:12 02/05/25 01:16 02/05/25 02:56 Temperature 98.7 F 97.4 F L Temperature Source Oral Pulse Rate 93 68 Respiratory Rate 16 16 Respiratory Effort Normal Non-Labored Blood Pressure 147/105 H 125/83 H Blood Pressure Mean 119 97 Pulse Ox 100 99 Oxygen Delivery Method Room Air Positive well nourished and well developed General Appearance ED: well developed HEENT HEENT Narrative: No signs of depressed or basilar skull fracture There is mild soft tissue swelling along the right frontal/parietal portion of the scalp No ecchymosis noted. No laceration Eyes PERRL and EOMs intact bilaterally General Eye ED: Negative for scleral icterus Neck supple Neck Narrative: No bony deformity or step-off of the cervical spine no midline tenderness to palpation Resp normal respiratory effort and clear to auscultation bilaterally Cardio regular rate and regular rhythm Extremity normal to inspection Neuro oriented x3, CN's II-XII intact bilaterally and no sensory deficits noted Sensorium / Orientation: alert Motor Exam: strength 5/5 throughout Psych Mood & Affect: anxious Skin no rashes or lesions noted Skin Narrative: Mild soft tissue swelling along the right frontal/parietal portion of the scalp as documented above MDM MDM MDM Narrative Medical decision making narrative: Patient arrived to ER hypertensive but otherwise with stable vitals. She reported striking her head at 3 different occasions throughout the day. She denied any loss of consciousness with each event and states she does not have a history of bleeding disorder nor does she take blood thinners. She has no signs of depressed or basilar skull fracture but as she has concern for underlying internal bleed I did elect to perform a CT scan to rule out traumatic subarachnoid or subdural hemorrhage or skull fracture. Imaging study revealed no sign of acute trauma which correlates with her physical exam. Therefore at this time as CT scan confirms no underlying intracranial injury and vitals are stable and neurologic exam normal she is otherwise safe for discharge Radiography Diagnostic Testing: Clinical Impression(s) from Imaging Studies Brain CT 02/05/25 02:33 IMPRESSION: No intracerebral or extra-axial hemorrhage. No acute cerebrovascular insult. If there is high clinical suspicion, correlate to MRI [facility] Discharge Plan Triage Chief Complaint: Head Injury ED Provider: Nelson Ulloa Dx/Rx/DC Orders Clinical Impression: Closed head injury, Contusion of scalp, Anxiety Instructions: ED Facial Contusion, ED Head Injury (Adult) Prescriptions: New ibuprofen 600 mg tablet 600 mg PO 4X/DAY PRN (Reason: pain) Qty: 40 0RF No Action metformin 500 mg tablet 500 mg PO DAILY Primary Care Provider: ARLINE CORADO Referrals: ARLINE CORADO [Other] Activity Restrictions/Additional Instructions: Your scan did not show any sign of skull fracture or brain bleed indicating the pain is from soft tissue contusion. You can ice the area to help reduce pain and swelling and also continue the prescribed ibuprofen. Return to the ER should you have any further concerns Print Language: New Zealander Disposition Disposition: Home, Self Care Discharge Date/Time: 02/05/25 02:58
[2025-02-05 02:56] VITALS: BP 125/83; PULSE 68; RESP 16; TEMP 36.3; O2SAT 99
== END 2025-02-05 02:58 | disposition home or self-care (01) ==
PROVIDERS: Emergency Provider Emergency Medicine; Visit Provider Emergency Medicine
DX: S00.03XA Contusion of scalp, initial encounter (principal); W22.09XA Striking against other stationary object, initial encounter; Y92.239 Unspecified place in hospital as the place of occurrence of the external cause; F41.9 Anxiety disorder, unspecified; F17.210 Nicotine dependence, cigarettes, uncomplicated
CPT/HCPCS: 70450; 99282

== ENCOUNTER 2025-03-22 23:21 | Emergency (ER) | payer MEDICAID, SELFPAY ==
[2025-03-22 23:22] VITALS: BP 130/97; PULSE 79; RESP 16; TEMP 37.2; O2SAT 100; BMI 34.2
[2025-03-22] MEDS: 0.9% Normal Saline (1000mL) 1,000 ML 999 ML IV (23:59)
[2025-03-23 00:26] LABS: Hematocrit 33.4 % (37-47); Hemoglobin 11.1 g/dL (12.0-15.0); Immature Granulocytes Count 0.010 X10^3/uL (0.0-0.0); Mean Corp Hgb Conc 33.2 g/dL (32-36); Mean Corpuscular Volume 85.0 fL (81-99); Mean Platelet Vol. 11.4 fl (6.2-12.0); NRBC Flagged by Analyzer 0 % (0-5); Platelet Count 210 K/mm3 (150-450); RBC Distribution Width CV 15.2 % (11.6-14.6); RBC Distribution Width SD 47.3 fl (35.1-43.9); Red Blood Count 3.93 M/mm3 (4.2-5.4); White Blood Count 7.4 K/mm3 (4.4-11.0)
--- OUTSIDE RECORDS SUMMARY | 2025-03-23 00:29 | XMS RPT_ITS | CCD ---
Author Organization [facility] Care Team Providers Care Dye Operator Name Role Phone Unavailable Primary Care Provider Unavailabl e PHYSICIAN, NONE Primary Care Physician Unavailab le NONE, NONE Consulting Unavailable NONE, NONE Primary Care Unavailable COOPER TERRY MD Attending Unavailable COOPER TERRY MD Admitting Unavailable Unavailable Primary Care Provider UnavailAlvin Marcano Emergency Provider Call, On Primary Care Provider UnavailCelso Ramachandran Primary Care Provider [phone] Unavailable Primary Care Provider UnavailMARCELO Gotti Attending Unavailable Jeremy Lim Emergency Provider Alex Avila Primary Care Provider Vern Henry Emergency Provider [phone] Ruben Jacob Primary Care Provider [phone] Juan Tidwell Emergency Provider Call, On Primary Care Unavailable Jeremy Lim Attending Unavailable Call, On Primary Care Unavailable Vern Henry Attending Unavailable Call, On Primary Care Unavailable Leandra Keller Attending Unavailable Call, On Primary Care Unavailable Juan Tidwell Attending Unavailable Pcp TAPE KELLER OPERATOR, Estrella Primary Care Provider Unavailtaylor CORADO TAPE KELLER OPERATOR-DATA WAREHOUSE ANALYST, ARLINE Suarez Primary Care Physicia n HIRA LANGLEY MD Attending Unavailable MICKIE TAPE KELLER OPERATOR-DATA WAREHOUSE ANALYSTARLINE Primary Care Unava ilable SURYA TAPE KELLER OPERATOR-DATA WAREHOUSE ANALYST, ABDI Attending Unavaila ble JASBIR DOMARCELO Primary Care Unavailab martha MAGALLANES MD, DR JOSÉ MIGUEL Waters Attending Unavailable JASBIR DOMARCELO Primary Care Unavailab le TARSHA PALian, ERLINDA Fuller Attending Unavailabl e JASBIR DOMARCELO Primary Care Unavailab le JASBIR DO, MARCELO Waters Primary Care Unavailab le GALINDO TAPE KELLER OPERATOR-DATA WAREHOUSE ANALYST, LIZETTE Attending Unavailtaylor LANGLEY MD, HIRA Carrington Attending Unavailable MICKIE TAPE KELLER OPERATOR-DATA WAREHOUSE ANALYST, RALINE M Primary Care Unava ilable MICKIE TAPE KELLER OPERATOR-DATA WAREHOUSE ANALYST, ARLINE Suarez Attending Unava ilable MICKIE TAPE KELLER OPERATOR-DATA WAREHOUSE ANALYST, ARLINE M Primary Care Unava ilable SURYA TAPE KELLER OPERATOR-DATA WAREHOUSE ANALYST, ABDI Attending Unavaila ble JASBIR DO, MARCELO Waters Primary Care Unavailab martha WILLINGHAM PA-C, ERLINDA Fuller Attending Unavailabl e JASBIR DO, MARCELO Waters Primary Care Unavailab martha MAGALLANES MD, DR JOSÉ MIGUEL Waters Attending Unavailable JASBIR DOMARCELO Primary Care Unavailab martha MAGALLANES MD, DR JOSÉ MIGUEL Waters Attending Unavailable JASBIR DOMARCELO Primary Care Unavailab le SURYA TAPE KELLER OPERATOR-DATA WAREHOUSE ANALYST, ABDI Attending Unavaila ble JASBIRMARCELO THAO DO Primary Care Unavailab martha MAGALLANES MD, DR JOSÉ MIGUEL Waters Attending Unavailable JASBIR DOMARCELO Primary Care Unavailab martha WILLINGHAM PA-C, ERLINDA Fuller Attending Unavailabl e JASBIR DO, MARCELO Waters Primary Care Unavailab le [facility] TAPE KELLER OPERATOR, No Primary Care Provider Unavailabl e COLBY, SUSHIL Referring Unavailable HAURY, SUSHIL Referring Unavailable HASUSHIL PACK Attending Unavailable SELF Referring Unavailable HASIRENA, SUSHIL Referring Unavailable LEELA CURRIE Attending Unavailable HASIRENA, SUSHIL Referring Unavailable JOSE ARANDA Attending Unavailable HAURY, SUSHIL Referring Unavailable MICKIE TAPE KELLER OPERATOR-DATA WAREHOUSE ANALYST, ARLINE M Primary Care Unava ilable CLEMENCIA ALONZO, DELL Attending Unavailable MICKIE TAPE KELLER OPERATOR-DATA WAREHOUSE ANALYST, ARLINE Suarez Attending Unava ilable MICKIE TAPE KELLER OPERATOR-DATA WAREHOUSE ANALYST, ARLINE Suarez Primary Care Unava ilable Care Physician, No Primary Primary Care Provider Unavailable Stefan ALONZO, Dr. Farooq Emergency Provider [phone] Stefan ALONZO, Dr. Farooq Attending Provider Dr. Nelson Ulloa DO Emergency Provider ARLINE CORADO Primary Care Provider [phone] ROSA M, MARLO Primary Care Unavailable Nelson Ulloa Attending Unavailable Redimas, René Attending Unavailable Care Physician, No Primary Primary Care Unava ilable Nelson Ulloa Attending Unavailable MARLO MEDEROS Primary Care Unavailable Oseas Aviles Attending Unavailable Care Physician, No Primary Primary Care Unava ilable Care Physician, No Primary Primary Care Unava ilable René Mohan Attending Unavailable Care Physician, No Primary Primary Care Unava ilable Nelson Ulloa Attending Unavailable Oseas Aviles Attending Unavailable Care Physician, No Primary Primary Care Unava ilable Care Physician, No Primary Primary Care Unava ilable Abhinav Sofia Attending Unavailable Nelson Ulloa Attending Unavailable Care Physician, No Primary Primary Care Unava ilable Care Physician, No Primary Primary Care Unava ilable Trae Kessler Attending Unavailable MICKIE TAPE KELLER OPERATOR-DATA WAREHOUSE ANALYST, ARLINE Suarez Attending Unava ilable MICKIE TAPE KELLER OPERATOR-DATA WAREHOUSE ANALYST, ARLINE M Primary Care Unava ilable MICKIE TAPE KELLER OPERATOR-DATA WAREHOUSE ANALYST, ARLINE M Primary Care Unava ilable LUCRETIA ALONZO, DR MARIANNA Wood Attending Unavailabl e MICKIE TAPE KELLER OPERATOR-DATA WAREHOUSE ANALYST, ARLINE M Primary Care Unava ilable MARLENA LOWERY DO Attending Unavailable MICKIE TAPE KELLER OPERATOR-DATA WAREHOUSE ANALYST, ARLINE M Primary Care Unava ilable MICKIE TAPE KELLER OPERATOR-DATA WAREHOUSE ANALYST, ARLINE Suarez Attending Unava ilable MICKIE, HANNAH Primary Care Unavailabl e MICKIE TAPE KELLER OPERATOR-DATA WAREHOUSE ANALYST, ARLINE M Primary Care Unava ilable MICHEAL LANIER, ROMINA, JOSE Waters Attending Unavailable Allergies Allergy Classification Reported Allergen(s) Allergy Type Date of Onset Reaction(s) Facility (14 sources) Acetaminophen / HYDROcodone; Translations: [acetaminophen-hy drocodone] Drug Allergy 2 [facility] (15 sources) Acetaminophen; Translations: [ACETAMINOPHEN] Drug Allergy 1 [facility] (15 sources) HYDROcodone; Translations: [HYDROCODONE] Drug Allergy 1 Hives [facility] (4 sources) Acetaminophen / HYDROcodone; Translations: [HYDROCODONE-ACET AMINOPHEN] Drug Allergy 2 Hives, Swelling [facility] (1 source) Acetaminophen Drug Allergy 4 [facility] (1 source) HYDROcodone Drug Allergy 4 [facility] (1 source) Acetaminophen Drug Allergy 5 [facility] (1 source) HYDROcodone Drug Allergy 5 [facility] Medications Current Medications Medication Drug Class(es) Dates Sig (Normalized) Sig (Original) Tylenol (6 sources) Start: 02-05-2024 Tylenol 0 Refi ll(s) [...] on above: Take 2 tablets by mo [facility] every 6 hours as needed for Pain. acetaminophen 300 mg / butalbital 50 mg / caffeine 40 mg oral capsule (3 sources) Barbiturate, Central Nervous System Stimulant, Methylxanthine Start: 5 End: 5 take 1 capsule by mouth every four hours as needed Fioricet oral capsule - use generic Fioricet tablet Dose = 1 cap(s), Oral, q4h, PRN as needed, X 7 day(s), # 20 cap(s), 0 Refill(s) Start Date: 09/30/24 Stop Date: 10/07/24 Status: Ordered Quantity: 20.0 Unit: cap(s) Repeat number: 1 Start: 05-18-2024 End: 06-16-2024 Oebmwzvnsk-Miapqwbshkmkb-Snq f (Fioricet) 50-300-40 mg capsule Discontinued 1 NMA PO THREE TIMES A DAY as needed for pain 15 0 May 18, 2024 12:00am June 16, 2024 7:06am amLODIPine 5 mg oral tablet (4 sources) Dihydropyridine Calcium Channel Andrew Start: 12-12-2023 take 1 tablet by mouth once daily amLODIPine (NORVASC) 5 mg tablet Take 1 tablet by mouth once daily. 30 tablet 12/12/2023 Active Blood Glucose Test Machine (2 sources) Start: 03-05-2024 Blood Glucose Test Machine See Instructions, 1 glucometer, # 1 EA, 0 Refill(s), Pharmacy: [facility] #[id number], Type 2 diabetes mellitus, 177.8, cm, 02/19/24 15:03:00 EDT, Height, 93, kg, 02/05/24 15:51:00 EDT, Dosing Weight Start Date: 03/05/24 Status: Ordered Quantity: 1.0 Unit: EA Repeat number: 1 Indications: Type 2 diabetes mellitus without complications; Start: 03-05-2024 Blood Glucose Test Machine See Instructions, 1 glucometer, # 1 EA, 0 Refill(s), Pharmacy: [facility] #[id number], Type 2 diabetes mellitus, 177.8, cm, 02/19/24 15:03:00 EDT, Height, 93, kg, 02/05/24 15:51:00 EDT, Dosing Weight Start Date: 03/05/24 Status: Ordered Quantity: 1.0 Unit: EA Repeat number: 1 Indication: Type 2 diabetes mellitus without complications Blood Pressure Cuff (1 source) Start: 03-07-2022 Blood Pressure Cuff See Instructions, Check and Log Blood Pressure Daily, # 1 EA, 0 Refill(s), 109.1 Start Date: 03/07/22 Status: Ordered cyclobenzaprine hydrochloride 5 mg oral tablet (4 sources) Muscle Relaxant Start: 03-07-2022 End: 03-14-2022 cyclobenzaprine 5 mg oral tablet Dose : 5 mg = 1 tab(s), Oral, TID, X 7 day(s), # 21 tab(s), 0 Refill(s), 03/14/22 5:57:00 EDT, [facility]acy: [email or web address][id number], 177.8, cm, 03/05/22 10:05:00 EDT, Height Start Date: 03/07/22 Stop Date: 03/14/22 Status: Ordered Start: 01-17-2022 cyclobenzaprin e Oral, 0 Refill(s) Start Date: 01/17/22 Status: Ordered Start: 06-01-2021 End: 04-03-2024 take 5-10 mg by mouth three times daily as needed for muscle spasms Cyclobenzaprine 10 mg tablet Discontinued 5 - 10 mg PO THREE TIMES A DAY as needed for muscle spasm 30 0 June 01, 2021 12:00am April 03, 2024 6:17am Dexcom G7 [place] (2 sources) Start: 08-22-2024 Dexcom G7 Read er See Instructions, Use reader daily for blood sugar checks. Keep reader within 20 feet of the sensor and transmitter, # 1 EA, 0 Refill(s), Pharmacy: [facility] #[id number], Type 2 diabetes mellitus, 177.8, cm, 08/22/24 14:59:00 EST, Height, 102.3, kg, 08/22/24 14:59:00 EST, Dosing Weight Start Date: 08/22/24 Status: Ordered Quantity: 1.0 Unit: EA Repeat number: 1 Indications: Type 2 diabetes mellitus without complications; Start: 08-22-2024 Dexcom G7 Read er See Instructions, Use reader daily for blood sugar checks. Keep reader within 20 feet of the sensor and transmitter, # 1 EA, 0 Refill(s), Pharmacy: [facility] #[id number], Type 2 diabetes mellitus, 177.8, cm, 08/22/24 14:59:00 EST, Height, 102.3, kg, 08/22/24 14:59:00 EST, Dosing Weight Start Date: 08/22/24 Status: Ordered Quantity: 1.0 Unit: EA Repeat number: 1 Indication: Type 2 diabetes mellitus without complications Dexcom G7 Sensor (2 sources) Start: 08-22-2024 Dexcom G7 Sens or See Instructions, Place once sensor to the back of the upper arm every 10 days. Use reader or phone lisette for daily blood sugar checks. 1 month supply., # 3 EA, 0 Refill(s), Pharmacy: [facility] #[id number], Type 2 diabetes mellitus, 177.8, cm, 08/22/24 14:59:00 EST, Height, 102.3, kg, 08/22/24 14:59:00 EST, Dosing Weight Start Date: 08/22/24 Status: Ordered Quantity: 3.0 Unit: EA Repeat number: 1 Indications: Type 2 diabetes mellitus without complications; Start: 08-22-2024 Dexcom G7 Sens or See Instructions, Place once sensor to the back of the upper arm every 10 days. Use reader or phone lisette for daily blood sugar checks. 1 month supply., # 3 EA, 0 Refill(s), Pharmacy: [email or web address] #[id number], Type 2 diabetes mellitus, 177.8, cm, 08/22/24 14:59:00 EST, Height, 102.3, kg, 08/22/24 14:59:00 EST, Dosing Weight Start Date: 08/22/24 Status: Ordered Quantity: 3.0 Unit: EA Repeat number: 1 Indication: Type 2 diabetes mellitus without complications DEXCOM G7 SENSOR (1 source) Start: 12-23-2024 DEXCOM G7 SENS OR DEXCOM G7 SENSOR, See Instructions, PLACE ONE SENSOR ON THE BACK OF THE UPPER ARM EVERY 10 DAYS. USE READER OR PHONE LISETTE FOR DAILY BLOOD SUGAR CHECKS, # 3 EA, 0 Refill(s), Pharmacy: [facility] #[id number], 177.8, cm, 08/22/24 14:59:00 EST, Height, 102.3, kg, 08/22/24 14:59:00 EST, Dosing Weight Start Date: 12/23/24 Status: Ordered Quantity: 3.0 Unit: EA Repeat number: 1 docusate sodium 100 mg oral capsule (1 source) Start: 03-07-2022 Colace 100 mg oral capsule Dose : 100 mg = 1 cap(s), Oral, BID, PRN as needed for constipation, # 20 cap(s), 0 Refill(s), Pharmacy: [email or web address] #[id number], 177.8, cm, 03/05/22 10:05:00 EDT, Height Start Date: 03/07/22 Status: Ordered famotidine 20 mg oral tablet (2 sources) Histamine-2 Receptor Antagonist Start: 01-17-2022 Pepcid 20 mg oral tablet Dose : 20 mg = 1 tab(s), Oral, qDay, # 30 tab(s), 0 Refill(s) Start Date: 01/17/22 Status: Ordered ibuprofen 600 mg oral tablet (15 sources) Nonsteroidal Anti-inflammatory Drug Start: 02-05-2025 take 1 tablet by mouth four times daily as needed for pain Ibuprofen 600 mg tablet Active 600 mg PO 4 TIMES DAILY as needed for pain 40 0 February 05, 2025 2:53am Start: 07-12-2024 End: 02-05-2025 take 1 tablet by mouth every six hours as needed for pain Ibuprofen 600 mg tablet Discontinued 600 mg PO EVERY 6 HOURS NEEDED as needed for fever or pain 20 July 12, 2024 1:00am February 05, 2025 1:18am Start: 02-05-2024 Advil 0 Refill (s) Start Date: 02/05/24 Status: Ordered Repeat number: 1 Start: 02-05-2024 Advil 0 Refill (s) Start Date: 02/05/24 Status: Ordered Start: 10-14-2023 take 600 mg by mouth every eight hours as needed for pain Ibuprofen [Motrin *] 600 MG PO Q8H PRN For Moderate Pain 30 October 14, 2023 Active Start: 05-12-2023 End: 05-22-2023 take 800 mg by mouth three times daily as needed Ibuprofen 800 MG PO THREE TIMES A DAY PRN 30 May 12, 2023 May 22, 2023 Discontinued Start: 03-07-2022 ibuprofen 600 mg oral tablet Dose : 600 mg = 1 tab(s), Oral, q6h, PRN for pain, Take with food or milk., # 40 tab(s), 0 Refill(s), [facility]acy: [facility] #[id number], 177.8, cm, 03/05/22 10:05:00 EDT, Height Start [...] daily, # 15 mL, 5 Refill(s), [email or web address][id number], 177.8, cm, 03/05/22 10:05:00 EDT, Height Start Date: 03/07/22 Status: Ordered metFORMIN hydrochloride 500 mg oral tablet (9 sources) Biguanide Start: 11-21-2024 take 1 tablet by mouth once daily metFORMIN 500 mg oral tablet (IR) 1 tab(s), Oral, qDay, # 90 tab(s), 1 Refill(s), Pharmacy: [facility] #[id number], 177.8, cm, 08/22/24 14:59:00 EST, Height, kg, 08/22/24 14:59:00 EST, Dosing Weight Start Date: 11/21/24 Status: Ordered Quantity: 90.0 Unit: tab(s) Repeat number: 1 Start: 12-11-2023 End: 07-09-2024 take 1 tablet by mouth once daily Metformin 500 mg tablet Active 500 mg PO DAILY April 03, 2024 12:00am naproxen sodium 550 mg oral tablet (9 sources) Nonsteroidal Anti-inflammatory Drug Start: 02-18-2025 take 1 tablet by mouth once as needed for pain, then take 1 tablet by mouth twice daily as needed for pain Anaprox-DS 550 mg oral tablet Dose : 550 mg = 1 tab(s), Oral, BID, PRN as needed for pain, # 10 tab(s), 0 Refill(s) Start Date: 02/18/25 Status: Ordered Quantity: 10.0 Unit: tab(s) Repeat number: 1 Start: 09-25-2022 End: 02-13-2023 take 500 mg by mouth twice daily Naproxen [Naprosyn] 500 MG PO TWICE A DAY September 25, 2022 February 13, 2023 Discontinued nitrofurantoin, macrocrystals 25 mg / nitrofurantoin, monohydrate 75 mg oral capsule (2 sources) Nitrofuran Antibacterial Start: 03-07-2021 End: 03-12-2021 take 1 capsule by mouth twice daily nitrofurantoin, macrocrystal-monohydrate, (MACROBID) 100 MG capsule Take 1 capsule [...] Drug Class(es) Dates Sig (Normalized) Sig (Original) [id number] 200 actuat albuterol 0.09 mg/actuat metered dose inhaler (1 source) beta2-Adrenergic Agonist Start: 03-15-2021 End: 03-15-2021 albuterol sulfate HFA 108 (90 Base) MCG/ACT inhaler 2 puff amoxicillin 500 mg oral tablet (2 sources) Penicillin-class Antibacterial Start: 07-12-2024 End: 08-08-2024 take 1 tablet by mouth three times daily Amoxicillin 500 mg tablet Discontinued 500 mg PO THREE TIMES A DAY 30 0 July 12, 2024 1:00am August 08, 2024 1:15am cefTRIAXone (ROCEPHIN) 500 mg in lidocaine 1 % 1 mL IM Injection (1 source) Start: 03-15-2021 End: 03-15-2021 cefTRIAXone (ROCEPHIN) 500 mg in lidocaine 1 % 1 mL IM Injection cephalexin 500 mg oral capsule (4 sources) Cephalosporin Antibacterial Start: 08-11-2023 take 500 mg by mouth twice daily Cephalexin [Keflex] 500 MG PO TWICE A DAY August 11, 2023 Active clindamycin 300 mg oral capsule (2 sources) Lincosamide Antibacterial Start: 08-08-2024 End: 02-05-2025 take 1 capsule by mouth four times daily Clindamycin Hcl 300 mg capsule Discontinued 300 mg PO 4 TIMES DAILY 28 7 0 August 08, 2024 1:00am February 05, 2025 1:18am doxycycline monohydrate 100 mg oral capsule (1 source) Tetracycline-class Drug Start: 03-15-2021 End: 03-15-2021 doxycycline monohydrate (MONODOX) capsule 100 mg DULoxetine 60 mg delayed release oral capsule (6 sources) Serotonin and Norepinephrine Reuptake Inhibitor Start: 06-09-2021 End: 06-16-2024 take 1 capsule by mouth once daily Duloxetine 60 mg capsule,delayed release(DR/EC) Discontinued 60 mg PO DAILY 30 2 June 09, 2021 1:00am June 16, 2024 7:07am begin after completing one week course of duloxetine 30mg daily Start: 06-01-2021 End: 06-16-2024 take 1 capsule by mouth once daily Duloxetine 30 mg capsule,delayed release(DR/EC) Discontinued 30 mg PO DAILY 7 June 09, 2021 1:00am June 16, 2024 7:07am ferrous sulfate 325 mg delay ed release oral tablet (7 sources) Start: 08-29-2024 End: 12-27-2024 ferrous sulfate 325 mg (65 m g elemental iron) oral delayed release tablet Dose : 325 mg = 1 tab(s), Oral, BID, # 60 tab(s), 3 Refill(s), Pharmacy: [facility] #[id number], 177.8, cm, 08/22/24 14:59:00 EST, Height, kg, 08/22/24 14:59:00 EST, Dosing Weight Start Date: 08/29/24 Stop Date: 12/27/24 Status: Ordered Quantity: 60.0 Unit: tab(s) Repeat number: 4 Start: 04-03-2024 End: 06-16-2024 Ferrous Sulfate (Ferosul) 32 5 mg (65 mg iron) tablet Discontinued 325 mg PO April 03, 2024 12:00am June 16, 2024 7:06am ferrous sulfate 325 mg (65 mg iron) EC tablet Take 325 mg by mouth. Active insulin lispro 100 unt/ml injectable solution (1 source) Insulin Analog Start: 01-17-2022 HumaLOG 100 un its/mL subcutaneous solution Dose : 14 unit(s) =, [...] 60 mg injection (Toradol) Start: 05-06-2024 End: 05-06-2024 60 mg, INTRAMUSCULAR, ONCE, 1 dose, On [...] Comment on above: Take 1 tablet by presotn twice daily. metroNIDAZOLE 500 mg oral tablet (2 sources) [...] VAGINAL DAILY 4 October 14, 2023 Active omeprazole 20 mg delayed release oral capsule (1 source) Proton Pump Inhibitor Start: 04-07-2023 take 1 capsule by mouth once daily omeprazole (PRILOSEC) 20 mg capsule Take 1 capsule by mouth once daily. 30 capsule 0 04/07/2023 Suspended ondansetron 4 mg disintegrating oral tablet (6 sources) Serotonin-3 Receptor Antagonist Start: 05-12-2023 End: 05-17-2023 Ondansetron [Zofran Odt] 4 MG PO EVERY SIX [id number]-- PRN 20 May 12, 2023 May 17, 2023 Discontinued Mcelntct-Qj-Mwj-Fe-FA ( VITAMIN) tab (2 sources) Start: 02-03-2019 take 1 tablet by mouth once daily Fpnbjdko-Qy-Qbw-Fe -FA ( VITAMIN) tab Take 1 tablet by mouth once daily. 30 tablet 11 02/03/2019 Suspended Start: 02-03-2019 take 1 tablet by preston th once daily Iuokeskd-An-Gcq-Fe-FA ( VITAMIN) tab Take 1 tablet by mouth once daily. 30 tablet 11 02/03/2019 Active Comment on above: Take 1 tablet by preston th once daily. vit,calc76/iron/folic (PNV 29-1 ORAL) (2 sources) vit,calc76/iron/folic (PNV 29-1 ORAL) Take by mouth. 0 Suspended vit,hussein c76/iron/folic (PNV 29-1 ORAL) Take by mouth. 0 Active Comment on above: Take by mouth. promethazine hydrochloride 25 mg oral tablet (2 sources) Phenothiazine Start: 02-20-20 take 1 tablet by mouth every four [...] End: 03-07-2021 0.9 % sodium chloride bolus sulfamethoxazole 800 mg / trimethoprim 160 mg oral tablet (2 sources) Dihydrofolate Reductase Inhibitor Antibacterial, Sulfonamide Antimicrobial Start: 05-25-2021 End: 06-01-2021 Sulfamethoxazole-Trimethopri m (Bactrim Ds) 800-160 mg tablet Discontinued 1 {tbl} PO TWICE A DAY 20 May 25, 2021 12:00am June 01, 2021 2:29pm vitamin b6 50 mg oral tablet (2 sources) Start: 01-06-2019 take 1 tablet by mouth once daily pyridoxine, vitamin B6, (VITAMIN B-6) 50 mg tablet Take 1 tablet by mouth once daily. 30 tablet 0 01/06/2019 Suspended Comment on above: Take 1 tablet by preston th once daily. 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 Cardiac dysrhythmias (5 sources) Palpitations; Translations: [Palpitations] Onset: 05-12-2023 04-11-2024 Episodic Conditions associated with dizziness or vertigo (1 source) Dizziness and giddiness; Translations: [Dizziness and giddiness] Onset: 08-11-2023 Episodic Deficiency and other anemia (8 sources) Anemia; Translations: [Anemia, unspecified] 02-19-2024 Episodic Deficiency and other anemia (2 sources) Iron deficiency anemia 08-22-2024 Episodic Diabetes mellitus without complication (2 sources) Type 2 diabetes mellitus 08-22-2024 Chronic Diabetes mellitus without complication (3 sources) Prediabetes 02-19-2024 Episodic Diabetes or abnormal glucose tolerance complicating ; childbirth; or the puerperium (5 sources) Gestational diabetes mellitus, class A>1< 01-17-2022 Episodic Disorders of teeth and jaw (1 source) Carious exposure of pulp ; Translations: [Dental caries on pit and fissure surface penetrating into pulp] Onset: 08-07-2021 Episodic Essential hypertension (2 sources) Hypertensive disorder; Translations: [Essential (primary) hypertension] Onset: 09-26-2022 Chronic Fluid and electrolyte disorders (3 sources) Hypokalemia 02-19-2024 Episodic Headache; including migraine (1 source) Headache; including migraine; Translations: [Headache, unspecified] Onset: 06-08-2024 Hemorrhage during ; abruptio placenta; placenta previa (2 sources) Threatened miscarriage; Translations: [Threatened ] 05-01-2024 Episodic Induced (1 source) Delayed or excessive hemorrhage following (induced) termination of ; Translations: [Delayed or excessive hemorrhage following (induced) termination of ] Onset: 10-14-2023 Episodic Malaise and fatigue (5 sources) Fatigue; Translations: [Other fatigue] Onset: 08-11-2023 06-10-2021 Episodic Mycoses (3 sources) Candidiasis of vagina 02-19-2024 Episodic Nausea and vomiting (3 sources) Nausea; Translations: [Nausea] Onset: 08-11-2023 Episodic Nonspecific chest pain (6 sources) Atypical chest pain; Translations: [Other chest pain] 05-06-2021 Episodic Other complications of (13 sources) Headache; Translations: [Other specified related conditions, [...] sources) Pain in lower limb Episodic Other connective tissue disease (2 sources) Localized swelling of right upper limb; Translations: [Other specified soft tissue disorders] 06-02-2021 Episodic Other connective tissue disease (2 sources) Ganglion cyst; Translations: [Ganglion, unspecified site] Onset: 02-18-2025 Episodic Other connective tissue disease (1 source) Ganglion, unspecified site; Translations: [Ganglion, unspecified site] Onset: 02-18-2025 Episodic Other connective tissue disease (1 source) Other muscle spasm; Translations: [Other muscle spasm] Onset: 03-10-2025 Episodic Other female genital disorders (1 source) [...] FACE INITIAL ENC] Onset: 11-29-2021 Episodic Other injuries and conditions due to external causes (1 source) Closed injury of head; Translations: [Unspecified injury of head, initial encounter] 02-05-2025 Episodic Other injuries and conditions due to external causes (1 source) Unspecified injury of head, initial encounter; Translations: [Unspecified injury of head, initial encounter] Onset: 02-11-2025 Episodic Other lower respiratory disease (2 sources) Dyspnea; Translations: [Dyspnea, unspecified] 05-16-2024 Episodic Other nervous system disorders (2 sources) Polyneuropathy; Translations: [Polyneuropathy, unspecified] 06-09-2021 Chronic Other nervous system disorders (4 sources) Paresthesia; Translations: [Paresthesia of skin] 01-12-2025 Episodic Other nervous system disorders (2 sources) Paresthesia of hand ; Translations: [Paresthesia of skin] 05-06-2021 Episodic Other nervous system disorders (1 source) Paresthesia of skin; Translations: [Paresthesia of skin] Onset: 01-16-2025 Episodic Other non-traumatic joint disorders (3 sources) Hip pain 02-19-2024 Episodic Other non-traumatic joint disorders (1 source) Wrist joint pain; Translations: [Pain in unspecified wrist] Onset: 02-18-2025 Episodic Other non-traumatic joint disorders (1 source) Pain in wrist 02-18-2025 Episodic Other non-traumatic joint disorders (1 source) Pain in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 % 0.0-0.9 [facility] Comment on above: IG% - Immature Granu locytes (promyelocytes, myelocytes and metamyelocytes) > 1% indicates that a LEFT SHIFT is Present. MCV (mean corpuscular volume ) determinationOrdered By: Oseas Aviles on 01-11-2025 MCV (RBC) [Entitic vol] 85.6 fL 81-99 [facility] Mean corpuscular hemoglobin (MCH) determinationOrdered By: Oseas Aviles on 01-11-2025 MCH (RBC) [Entitic mass] 27.5 pg 27.0-32.0 [facility] Mean corpuscular hemoglobin concentration (MCHC) determinationOrdered By: Oseas Aviles on 01-11-2025 MCHC (RBC) [Mass/Vol] 32.2 g/dL 32-36 [facility] Mean platelet volume determi nationOrdered By: Oseas Aviles on 01-11-2025 Platelet mean volume (Bld) [Entitic vol] 10.6 fL 6.2-12.0 [facility] Monocyte percentageOrdered B y: Oseas Aviles on 01-11-2025 Monocytes/100 WBC (Bld) 7.3 % 0-10 [facility] Neutrophil percentageOrdered By: Oseas Aviles on 01-11-2025 Neutrophils/100 WBC (Bld) 54.7 % 47-70 [facility] Nucleated red blood cell per centageOrdered By: Oseas Aviles on 01-11-2025 Nucleated RBC/100 WBC (Bld) [Ratio] 0 % 0-5 [facility] Platelet countOrdered By: Nnamdi Aviles on 01-11-2025 Platelets (Bld) [#/Vol] 208 10*3/uL 150-450 [facility] Potassium measurement (mass/ volume)Ordered By: Oseas Aviles on 01-11-2025 Potassium (Unsp spec) [Mass/Vol] 3.9 mmol/L 3.3-5.1 [facility] RBC Auto (Bld) [#/Vol]Ordere d By: Oseas Aviles on 01-11-2025 RBC (Bld) [#/Vol] 4.03 10*6/uL Low 4.2-5.4 [facility] Serum creatinine measurement (mass/volume)Ordered By: Oseas Aviles on 01-11-2025 Creatinine [Mass/Vol] 0.73 mg/dL 0.70-1.20 [facility] Serum glucose measurement (m ass/volume)Ordered By: Oseas Aviles on 01-11-2025 Glucose [Mass/Vol] 133 mg/dL High 70-99 [facility] Serum or plasma calcium jelani urement (mass/volume)Ordered By: Oseas Aviles on 01-11-2025 Calcium [Mass/Vol] 9.3 mg/dL 7.6-11.0 [facility] Serum or plasma urea nitroge n measurement (mass/volume)Ordered By: Oseas Aviles on 01-11-2025 Urea nitrogen [Mass/Vol] 11 mg/dL 4-19 [facility] Sodium levelOrdered By: Oseas Aviles on 01-11-2025 Sodium [Moles/Vol] 138 mmol/L 133-145 [facility] White blood cell (WBC) count Ordered By: Oseas Aviles on 01-11-2025 WBC (Bld) [#/Vol] 6.9 10*3/uL 4.4-11.0 [facility] A1Con 08-23-2024 Glucose [Mass/Vol] 134 mg/dL High <=114 [facility] Comment on above: Result Comment: Sarah mated Average Glucose calculated by equation ((28.7xA1C)-46.7) Estimated average glucose (eAG) is a calculated value from Hemoglobin A1C and is business office representative of the average blood glucose level in the last 2-3 month period. Normal range: less than 114 mg/dL Performed By: #### A 1C, ANEU, FT3, FT4, CMP, GFR, ADIFF, FERR, TSH, CBC, FE #### [facility] [address], [place] [address] HbA1c (Bld) [Mass fraction] 6.3 % Normal [facility] Comment on above: Result Comment: Inte [...] GFR, ADIFF, FERR, TSH, CBC, FE #### [place] [address] .Auto Diffon 08-22-2024 Basophil, Absolute 0.0 10 3/mcL Normal 0.0-0.3 [facility] Comment on above: Performed By: #### A 1C, ANEU, FT3, FT4, CMP, GFR, ADIFF, FERR, TSH, CBC, FE #### [place] [address] Basophils/100 WBC (Bld) 0.5 % Normal 0.0-2.5 [facility] Comment on above: Performed By: #### A 1C, ANEU, FT3, FT4, CMP, GFR, ADIFF, FERR, TSH, CBC, FE #### [place] [address] Eosinophil, Absolute 0.1 10 3/mcL Normal 0.0-0.7 [facility] Comment on above: Performed By: #### A 1C, ANEU, FT3, FT4, CMP, GFR, ADIFF, FERR, TSH, CBC, FE #### [place] [address] Eosinophils/100 WBC (Bld) 2.2 % Normal 0.0-6.0 [facility] Comment on above: Performed By: #### A 1C, ANEU, FT3, FT4, CMP, GFR, ADIFF, FERR, TSH, CBC, FE #### [place] [address] Lymphocyte, Absolute 2.3 10 3/mcL Normal 0.9-4.3 [facility] Comment on above: Performed By: #### A 1C, ANEU, FT3, FT4, CMP, GFR, ADIFF, FERR, TSH, CBC, FE #### [address], [place] [address] Lymphocytes/100 WBC (Bld) 40.9 % High 20.0-40.0 [facility] Comment on above: Performed By: #### A 1C, ANEU, FT3, FT4, CMP, GFR, ADIFF, FERR, TSH, CBC, FE #### [facility] [address] [place], [place] [address] Monocyte, Absolute 0.4 10 3/mcL Normal 0.1-1.4 [facility] Comment on above: Performed By: #### A 1C, ANEU, FT3, FT4, CMP, GFR, ADIFF, FERR, TSH, CBC, FE #### [facility] [address] [place], [place] [address] Monocytes/100 WBC (Bld) 7.2 % Normal 2.0-13.0 [facility] Comment on above: Performed By: #### A 1C, ANEU, FT3, FT4, CMP, GFR, ADIFF, FERR, TSH, CBC, FE #### [facility] [address] [place], [place] [address] Neutrophils/100 WBC (Bld) 49.2 % Low 50.0-75.0 [facility] Comment on above: Performed By: #### A 1C, ANEU, FT3, FT4, CMP, GFR, ADIFF, FERR, TSH, CBC, FE #### [facility] [address] [place], [place] [address] .GFRon 08-22-2024 GFR Non- 87 ml/min/1.73sqm Normal [facility] Comment on above: Result Comment: GFR [...] GFR, ADIFF, FERR, TSH, CBC, FE #### [facility] [address] [place], [place] [address] GFR 106 ml/min/1.73sqm Normal [facility] Comment on above: Result Comment: GFR [...] GFR, ADIFF, FERR, TSH, CBC, FE #### [facility] [address] [place] [address] .NEUABSon 08-22-2024 Neutrophil, Absolute 2.7 10 3/mcL Normal 2.3-8.1 [facility] Comment on above: Performed By: #### A 1C, ANEU, FT3, FT4, CMP, GFR, ADIFF, FERR, TSH, CBC, FE #### [facility] [address] [place], [place] [address] CBCon 08-22-2024 Erythrocyte distribution width (RBC) [Ratio] 17.9 % High 11.5-15.5 [facility] Comment on above: Performed By: #### A 1C, ANEU, FT3, FT4, CMP, GFR, ADIFF, FERR, TSH, CBC, FE #### [facility] [address] [place] [id number] Hematocrit (Bld) [Volume fraction] 34.1 % Normal 34.0-46.0 [facility] Comment on above: Performed By: #### A 1C, ANEU, FT3, FT4, CMP, GFR, ADIFF, FERR, TSH, CBC, FE #### [facility] [address] [place] [address] Hgb 10.7 G/dL Low 12.0-16.0 [facility] Comment on above: Performed By: #### A 1C, ANEU, FT3, FT4, CMP, GFR, ADIFF, FERR, TSH, CBC, FE #### [facility] [address] [place] [address] MCH (RBC) [Entitic mass] 25.3 pg Low 27.0-33.0 [facility] Comment on above: Performed By: #### A 1C, ANEU, FT3, FT4, CMP, GFR, ADIFF, FERR, TSH, CBC, FE #### [facility] [address] [place] [address] MCHC 31.4 G/dL Low 32.0-36.0 [facility] Comment on above: Performed By: #### A 1C, ANEU, FT3, FT4, CMP, GFR, ADIFF, FERR, TSH, CBC, FE #### [facility] [address] [place] [address] MCV (RBC) [Entitic vol] 80.4 fL Normal 80.0-99.0 [facility] Comment on above: Performed By: #### A 1C, ANEU, FT3, FT4, CMP, GFR, ADIFF, FERR, TSH, CBC, FE #### [facility] [address] [place] [address] Platelet 215 10 3/mcL Normal 150-450 [facility] Comment on above: Performed By: #### A 1C, ANEU, FT3, FT4, CMP, GFR, ADIFF, FERR, TSH, CBC, FE #### [facility] [address] [place] [address] Platelet mean volume (Bld) [Entitic vol] 8.8 fL Normal 6.6-10.5 [facility] Comment on above: Performed By: #### A 1C, ANEU, FT3, FT4, CMP, GFR, ADIFF, FERR, TSH, CBC, FE #### [facility] [address] [place] [address] RBC 4.24 10 6/mcL Normal 4.10-5.30 [facility] Comment on above: Performed By: #### A 1C, ANEU, FT3, FT4, CMP, GFR, ADIFF, FERR, TSH, CBC, FE #### [facility] [address] [place] [address] WBC 5.6 10 3/mcL Normal 4.5-10.8 [facility] Comment on above: Performed By: #### A 1C, ANEU, FT3, FT4, CMP, GFR, ADIFF, FERR, TSH, CBC, FE #### [place] [address] CMPon 08-22-2024 Albumin Level 3.8 G/dL Normal 3.4-5.0 [facility] Comment on above: Performed By: #### A 1C, ANEU, FT3, FT4, CMP, GFR, ADIFF, FERR, TSH, CBC, FE #### [place] [address] Albumin/Globulin [Mass ratio] 1.0 {ratio} Low 1.1-1.8 [facility] Comment on above: Performed By: #### A 1C, ANEU, FT3, FT4, CMP, GFR, ADIFF, FERR, TSH, CBC, FE #### [place] [address] ALP [Catalytic activity/Vol] 76 U/L Normal 45-117 [facility] Comment on above: Performed By: #### A 1C, ANEU, FT3, FT4, CMP, GFR, ADIFF, FERR, TSH, CBC, FE #### [place] [address] ALT [Catalytic activity/Vol] 28 U/L Normal 12-78 [facility] Comment on above: Performed By: #### A 1C, ANEU, FT3, FT4, CMP, GFR, ADIFF, FERR, TSH, CBC, FE #### [facility] [address] [place], [place] [address] AST [Catalytic activity/Vol] 17 U/L Normal 15-37 [facility] Comment on above: Performed By: #### A 1C, ANEU, FT3, FT4, CMP, GFR, ADIFF, FERR, TSH, CBC, FE #### [facility] [address] [place] [phone] Bili Total 0.4 mg/dL Normal 0.2-1.0 [facility] Comment on above: Result Comment: Use of this assay is not recommended for patients undergoing treatment with eltrombopag due to the potential for falsely elevated results. Performed By: #### A 1C, ANEU, FT3, FT4, CMP, GFR, ADIFF, FERR, TSH, CBC, FE #### [facility] [address] [place] [address] BUN/Creatinine Ratio 9.0 ratio Low 10.0-22.0 [facility] Comment on above: Performed By: #### A 1C, ANEU, FT3, FT4, CMP, GFR, ADIFF, FERR, TSH, CBC, FE #### [facility] [address] [place] [address] Calcium [Mass/Vol] 8.6 mg/dL Normal 8.5-10.1 [facility] Comment on above: Performed By: #### A 1C, ANEU, FT3, FT4, CMP, GFR, ADIFF, FERR, TSH, CBC, FE #### [facility] [address] [place] [phone] Chloride [Moles/Vol] 106 mmol/L Normal 98-107 [facility] Comment on above: Performed By: #### A 1C, ANEU, FT3, FT4, CMP, GFR, ADIFF, FERR, TSH, CBC, FE #### [facility] [address] [place] [address] CO2 [Moles/Vol] 26 mmol/L Normal 21-32 [facility] Comment on above: Performed By: #### A 1C, ANEU, FT3, FT4, CMP, GFR, ADIFF, FERR, TSH, CBC, FE #### [facility] [address] [place] [phone] Creatinine [Mass/Vol] 0.78 mg/dL Normal 0.55-1.02 [facility] Comment on above: Result Comment: Test ing performed on Siemens Dimension Roseland analyzer using a modified kinetic Patricio technique. Performed By: #### A 1C, ANEU, FT3, FT4, CMP, GFR, ADIFF, FERR, TSH, CBC, FE #### [facility] [address] [place] [phone] Electrolyte Balance 4.0 mEq/L Normal 4.0-15.0 [facility] Comment on above: Performed By: #### A 1C, ANEU, FT3, FT4, CMP, GFR, ADIFF, FERR, TSH, CBC, FE #### [facility] [address] [place] [address] Globulin 3.7 G/dL Normal 2.5-4.6 [facility] Comment on above: Performed By: #### A 1C, ANEU, FT3, FT4, CMP, GFR, ADIFF, FERR, TSH, CBC, FE #### [facility] [address] [place] [address] Glucose [Mass/Vol] 109 mg/dL High 70-100 [facility] Comment on above: Performed By: #### A 1C, ANEU, FT3, FT4, CMP, GFR, ADIFF, FERR, TSH, CBC, FE #### [facility] [address] [place] [phone] Potassium [Moles/Vol] 4.0 mmol/L Normal 3.5-5.1 [facility] Comment on above: Performed By: #### A 1C, ANEU, FT3, FT4, CMP, GFR, ADIFF, FERR, TSH, CBC, FE #### [facility] [address] [place] [phone] Sodium [Moles/Vol] 136 mmol/L Normal 136-145 [facility] Comment on above: Performed By: #### A 1C, ANEU, FT3, FT4, CMP, GFR, ADIFF, FERR, TSH, CBC, FE #### [facility] [address] [place] [address] Total Protein 7.5 G/dL Normal 6.0-8.3 [facility] Comment on above: Performed By: #### A 1C, ANEU, FT3, FT4, CMP, GFR, ADIFF, FERR, TSH, CBC, FE #### [facility] [address] [place] [address] Urea nitrogen [Mass/Vol] 7.0 mg/dL Normal 7.0-18.0 [facility] Comment on above: Performed By: #### A 1C, ANEU, FT3, FT4, CMP, GFR, ADIFF, FERR, TSH, CBC, FE #### [facility] [address] [place] [address] FEon 08-22-2024 Iron [Mass/Vol] 38 ug/dL Low 50-170 [facility] Comment on above: Performed By: #### A 1C, ANEU, FT3, FT4, CMP, GFR, ADIFF, FERR, TSH, CBC, FE #### [place] [address] Michael 08-22-2024 Ferritin 3.8 CD:[id number] Low 8.0-252.0 [facility] Comment on above: Performed By: #### A 1C, ANEU, FT3, FT4, CMP, GFR, ADIFF, FERR, TSH, CBC, FE #### [place] [address] FT3on 08-22-2024 Free T3 [Mass/Vol] 2.66 pg/mL Normal 2.18-3.98 [facility] Comment on above: Performed By: #### A 1C, ANEU, FT3, FT4, CMP, GFR, ADIFF, FERR, TSH, CBC, FE #### [place] [address] FT4on 08-22-2024 Free T4 [Mass/Vol] 0.99 ng/dL Normal 0.76-1.46 [facility] Comment on above: Performed By: #### A 1C, ANEU, FT3, FT4, CMP, GFR, ADIFF, FERR, TSH, CBC, FE #### [facility] [address] [place] [address], [place] [address] TSHon 08-22-2024 TSH 0.583 mIU/mL Normal 0.358-3.740 [facility] Comment on above: Performed By: #### A 1C, ANEU, FT3, FT4, CMP, GFR, ADIFF, FERR, TSH, CBC, FE #### [facility] [address] [place], [place] [address] ALLIED HEALTHon 08-11-2024 [facility] HNO ID: [id number] Author: TIFFANY GRIMES RT(R) Service: Radiology Author Type: Technologist Type: [employer] Filed: 08/11/2024 03:38 Note Text: Summary: [...] PATIENT PRESENTS WITH AN IMPLANTABLE OR ATTACHED GRAPHIC EDITOR: No ALLERGIES: Reviewed and unchanged CONTRAST ALLERGY: [...] - refer to LDA documentation RADIOLOGY DEPARTMENT: CT; Exam(s) Completed: Abdomen/Pelvis and PE Study SIGNATURE: RT Jazmin(R) PATIENT NAME: Betsy Mesa DATE: August 11, 2024 TIME: 3:37 AM Normal [facility] CBC W Auto Differential pane l (Bld)on 08-11-2024 Basophils (Bld) [#/Vol] 0.03 10*3/uL Normal <0.11 [facility] Comment on above: Order Comment: Speci men Type: BLOOD SPECIMEN Ordering Facility: [facility] Address: [address] [place] [address] Performed By: #### 5 7021-8 #### [facility] CLIA [id number] [address] [place] [address] [place] Basophils/100 WBC (Bld) 0.5 % Normal [facility] Comment on above: Order Comment: Speci men Type: BLOOD SPECIMEN Ordering Facility: [facility] Address: [address] [place] [address] Performed By: #### 5 7021-8 #### [facility] CLIA [id number] [address] [place] [address] [place] Differential cell count method Nom (Bld) Auto Normal [facility] Comment on above: Order Comment: Speci men Type: BLOOD SPECIMEN Ordering Facility: [facility] Address: [address] [place] [address] Performed By: #### 5 7021-8 #### [facility] CLIA [id number] [address] [place] [address] [place] Eosinophils (Bld) [#/Vol] 0.14 10*3/uL Normal <0.46 [facility] Comment on above: Order Comment: Speci men Type: BLOOD SPECIMEN Ordering Facility: [facility] Address: [address] [place] [address] Performed By: #### 5 7021-8 #### [facility] CLIA [id number] [address] [place] [address] [place] Eosinophils/100 WBC (Bld) 2.2 % Normal [facility] Comment on above: Order Comment: Speci men Type: BLOOD SPECIMEN Ordering Facility: [facility] Address: [address] [place] [address] Performed By: #### 5 7021-8 #### [facility] CLIA [id number] [address] [place] [address] [place] Erythrocyte distribution width (RBC) [Ratio] 15.6 % High 11.5-15.0 [facility] Comment on above: Order Comment: Speci men Type: BLOOD SPECIMEN Ordering Facility: [facility] Address: [address] [place] [address] Performed By: #### 5 7021-8 #### [facility] CLIA [id number] [address] [place] [address] [place] Hematocrit (Bld) [Volume fraction] 32.8 % Low 36.0-46.0 [facility] Comment on above: Order Comment: Speci men Type: BLOOD SPECIMEN Ordering Facility: [facility] Address: [address] [place] [address] Performed By: #### 5 7021-8 #### [facility] CLIA [id number] [address] [place] [address] [place] Hemoglobin (Bld) [Mass/Vol] 10.3 g/dL Low 11.5-15.5 [facility] Comment on above: Order Comment: Speci men Type: BLOOD SPECIMEN Ordering Facility: [facility] Address: [address] [place] [address] Performed By: #### 5 7021-8 #### [facility] CLIA [id number] [address] [place] [address] [place] Immature granulocytes (Bld) [#/Vol] 10*3/uL Normal <0.10 [facility] Comment on above: Order Comment: Speci men Type: BLOOD SPECIMEN Ordering Facility: [facility] Address: [address] [place] [address] Performed By: #### 5 7021-8 #### [facility] CLIA [id number] [address] [place] [address] [place] Immature granulocytes/100 WBC (Bld) 0.3 % Normal [facility] Comment on above: Order Comment: Speci men Type: BLOOD SPECIMEN Ordering Facility: [facility] Address: [address] [place] [address] Performed By: #### 5 7021-8 #### [facility] CLIA [id number] [address] [place] [address] [place] Lymphocytes (Bld) [#/Vol] 2.36 10*3/uL Normal 1.00-4.00 [facility] Comment on above: Order Comment: Speci men Type: BLOOD SPECIMEN Ordering Facility: [facility] Address: [address] [place] [address] Performed By: #### 5 7021-8 #### [facility] CLIA [id number] [address] [place] [address] [place] Lymphocytes/100 WBC (Bld) 36.6 % Normal [facility] Comment on above: Order Comment: Speci men Type: BLOOD SPECIMEN Ordering Facility: [facility] Address: [address] [place] [address] Performed By: #### 5 7021-8 #### [facility] CLIA [id number] [address] [place] [address] [place] MCH (RBC) [Entitic mass] 25.6 pg Low 26.0-34.0 [facility] Comment on above: Order Comment: Speci men Type: BLOOD SPECIMEN Ordering Facility: [facility] Address: [address] [place] [address] Performed By: #### 5 7021-8 #### [facility] CLIA [id number] [address] [place] [address] [place] MCHC (RBC) [Mass/Vol] 31.4 g/dL Normal 30.5-36.0 [facility] Comment on above: Order Comment: Speci men Type: BLOOD SPECIMEN Ordering Facility: [facility] Address: [address] [place] [address] Performed By: #### 5 7021-8 #### [facility] CLIA [id number] [address] [place] [address] [place] MCV (RBC) [Entitic vol] 81.4 fL Normal 80.0-100.0 [facility] Comment on above: Order Comment: Speci men Type: BLOOD SPECIMEN Ordering Facility: [facility] Address: [address] [place] [address] Performed By: #### 5 7021-8 #### [facility] CLIA [id number] [address] [place] [address] [place] Monocytes (Bld) [#/Vol] 0.46 10*3/uL Normal <0.87 [facility] Comment on above: Order Comment: Speci men Type: BLOOD SPECIMEN Ordering Facility: [facility] Address: [address] [place] [address] Performed By: #### 5 7021-8 #### [facility] CLIA [id number] [address] [place] [address] [place] Monocytes/100 WBC (Bld) 7.1 % Normal [facility] Comment on above: Order Comment: Speci men Type: BLOOD SPECIMEN Ordering Facility: [facility] Address: [address] [place] [address] Performed By: #### 5 7021-8 #### [facility] CLIA [id number] [address] [place] [address] [place] Neutrophils (Bld) [#/Vol] 3.44 10*3/uL Normal 1.45-7.50 [facility] Comment on above: Order Comment: Speci men Type: BLOOD SPECIMEN Ordering Facility: [facility] Address: [address] [place] [address] Performed By: #### 5 7021-8 #### [facility] CLIA [id number] [address] [place] [address] [place] Neutrophils/100 WBC (Bld) 53.3 % Normal [facility] Comment on above: Order Comment: Speci men Type: BLOOD SPECIMEN Ordering Facility: [facility] Address: [address] [place] [address] Performed By: #### 5 7021-8 #### [facility] CLIA [id number] [address] [place] [address] [place] Nucleated RBC (Bld) [#/Vol] 10*3/uL Normal <0.01 [facility] Comment on above: Order Comment: Speci men Type: BLOOD SPECIMEN Ordering Facility: [facility] Address: [address] [place] [address] Performed By: #### 5 7021-8 #### [facility] CLIA [id number] [address] [place], [place] [id number] [place] Nucleated RBC/100 WBC (Bld) [Ratio] 0.0 /100 WBC Normal [facility] Comment on above: Order Comment: Speci men Type: BLOOD SPECIMEN Ordering Facility: [facility] Address: [address] [place] [address] Performed By: #### 5 7021-8 #### [facility] CLIA [id number] [address] [place] [address] [place] Platelet mean volume (Bld) [Entitic vol] 10.8 fL Normal 9.0-12.7 [facility] Comment on above: Order Comment: Speci men Type: BLOOD SPECIMEN Ordering Facility: [facility] Address: [address] [place] [address] Performed By: #### 5 7021-8 #### [facility] CLIA [id number] [address] [place] [address] [place] Platelets (Bld) [#/Vol] 220 10*3/uL Normal 150-400 [facility] Comment on above: Order Comment: Speci men Type: BLOOD SPECIMEN Ordering Facility: [facility] Address: [address] [place] [address] Performed By: #### 5 7021-8 #### [facility] CLIA [id number] [address] [place] [address] [place] RBC (Bld) [#/Vol] 4.03 10*6/uL Normal 3.90-5.20 [facility] Comment on above: Order Comment: Speci men Type: BLOOD SPECIMEN [facility]ing Facility: [facility] Address: [address] [place] [address] Performed By: #### 5 7021-8 #### [facility] CLIA [id number] [address] [place], [place] [address] [place] WBC (Bld) [#/Vol] 6.45 10*3/uL Normal 3.70-11.00 [facility] Comment on above: Order Comment: Speci men Type: BLOOD SPECIMEN Ordering Facility: [facility] Address: [address], [place] [address] Performed By: #### 5 7021-8 #### [facility] CLIA [id number] [address] [place] [address] [place] CT ABD/PEL W IVCONon 08-11-[address] ABD/PEL W IVCON * * *Final Report* * * DATE OF EXAM: Aug 11 2024 3:50AM [facility] 0530 - CT ABD/PEL W IVCON / [...] pulmonary embolism. 2. No acute abdominal abnormality Elevator Service Mechanic: [facility] Transcribe Date/Time: Aug 11 2024 3:59A Dictated by : MARCELO LAI MD This examination was interpreted and the report reviewed and electronically signed by: MARCELO LAI MD on Aug 11 2024 4:12AM EST [id number] Normal [facility] CTA CHEST (NON GATED) W IVCO N PEon 08-11-2024 CTA CHEST (NON GATED) W IVCON PE * * *Final Report* * * DATE OF EXAM: Aug 11 2024 3:50AM [facility] 0564 - CTA CHEST (NON GATED) W [...] pulmonary embolism. 2. No acute abdominal abnormality Elevator Service Mechanic: [facility] Transcribe Date/Time: Aug 11 2024 3:59A Dictated by : MARCELO LAI MD This examination was interpreted and the report reviewed and electronically signed by: MARCELO LAI MD on Aug 11 2024 4:12AM EST [id number] Normal [facility] Comprehensive metabolic 2000 panelon 08-11-2024 Albumin [Mass/Vol] 3.6 g/dL Normal 3.2-5.0 [facility] Comment on above: Order Comment: Speci men Type: BLOOD SPECIMEN Ordering Facility: [facility] Address: [address] [place] [address], [place] [address] Performed By: #### 2 4323-8, 3040-3, HSTROP #### [facility] CLIA [id number] [address] [place] [address] [place] ALP [Catalytic activity/Vol] 83 U/L Normal 45-117 [facility] Comment on above: Order Comment: Speci men Type: BLOOD SPECIMEN Ordering Facility: [facility] Address: [address] [place] [address] Performed By: #### 2 4323-8, 3040-3, HSTROP #### [facility] CLIA [id number] [address] [place] [id number] [place] ALT [Catalytic activity/Vol] 21 U/L Normal 13-61 [facility] Comment on above: Order Comment: Jessica rojo Type: BLOOD SPECIMEN [facility]ing Facility: [facility] Address: [address] [place] [address] Result Comment: Resu lts may be falsely depressed after the administration of Sulfasalazine and/or Sulfapyridine. Performed By: #### 2 4323-8, 3040-3, HSTROP #### [facility] CLIA [id number] [address] [place], [place] [address] [place] Anion gap [Moles/Vol] 5 mmol/L Normal 5-16 [facility] Comment on above: Order Comment: Jessica rojo Type: BLOOD SPECIMEN [facility]ing Facility: [facility] Address: [address] [place] [address] Performed By: #### 2 4323-8, 0-3, HSTROP #### [facility] CLIA [id number] [address] [place], [place] [address] [place] AST [Catalytic activity/Vol] 19 U/L Normal 8-34 [facility] Comment on above: Order Comment: Jessica rojo Type: BLOOD SPECIMEN [facility]ing Facility: [facility] Address: [address] [place] [address] Result Comment: Resu lts may be falsely depressed after the administration of Sulfasalazine and/or Sulfapyridine. Performed By: #### 2 4323-8, 3040-3, HSTROP #### [facility] CLIA [id number] [address] [place] [address] [place] Bilirubin [Mass/Vol] 0.2 mg/dL Normal 0.2-1.0 [facility] Comment on above: Order Comment: Speci men Type: BLOOD SPECIMEN [facility]ing Facility: [facility] Address: [address] [place] [id number] Performed By: #### 2 4323-8, 3040-3, HSTROP #### [facility] CLIA [id number] [address] [place], [place] [address] [place] Calcium [Mass/Vol] 9.4 mg/dL Normal 8.5-10.5 [facility] Comment on above: Order Comment: Speci men Type: BLOOD SPECIMEN Ordering Facility: [facility] Address: [address] [place] [address] Performed By: #### 2 4323-8, 0-3, HSTROP #### [facility] CLIA [id number] [address] [place], [place] [address] [place] Chloride [Moles/Vol] 106 mmol/L Normal 98-107 [facility] Comment on above: Order Comment: Speci men Type: BLOOD SPECIMEN [facility]ing Facility: [facility] Address: [address] [place] [address] Performed By: #### 2 4323-8, 0-3, HSTROP #### [facility] CLIA [id number] [address] [place], [place] [address] [place] CO2 [Moles/Vol] 25 mmol/L Normal 21-32 [facility] Comment on above: Order Comment: Speci men Type: BLOOD SPECIMEN [facility]ing Facility: [facility] Address: [address] [place] [address] Performed By: #### 2 4323-8, 3040-3, HSTROP #### [facility] CLIA [id number] [address] [place], [place] [address] [place] Creatinine [Mass/Vol] 0.63 mg/dL Normal 0.51-0.95 [facility] Comment on above: Order Comment: Speci men Type: BLOOD SPECIMEN [facility]ing Facility: [facility] Address: [address] [place] [address] Result Comment: Temo ents receiving either N-Acetylcysteine (NAC) or Metamizole prior to venipuncture, may have falsely depressed results. Performed By: #### 2 4323-8, 3040-3, HSTROP #### [facility] CLIA [id number] [address] [place] [address] [place] Creatinine and Glomerular filtration rate.predicted panel (S/P/Bld) 123 mL/min/1.73m??? Normal >=60 [facility] Comment on above: Order Comment: Jessica rojo Type: BLOOD SPECIMEN [facility]ing Facility: [facility] Address: [address] [place] [address] Result Comment: Sarah mated Glomerular Filtration Rate [...] reflect actual GFR. Performed By: #### 2 4323-8, 3040-3, HSTROP #### [facility] CLIA [id number] [address] [place] [address] [place] Glucose [Mass/Vol] 142 mg/dL High 70-100 [facility] Comment on above: Order Comment: Jessica rojo Type: BLOOD SPECIMEN [facility]ing Facility: [facility] Address: [address] [place] [address] Result Comment: The [place] Diabetes Association (ADA) provides guidance for cutoff [...] Standards of Medical Care in Diabetes 2016, [place] [employer]. Diabetes Care. 2016.39(Suppl 1). Results may be falsely elevated after the administration of Sulfapyridine. Results may be falsely depressed after the administration of Sulfasalazine. Performed By: #### 2 4323-8, 3040-3, HSTROP #### [facility] CLIA [id number] [address] [place], [place] [address] [place] Potassium [Moles/Vol] 3.7 mmol/L Normal 3.5-5.1 [facility] Comment on above: Order Comment: Speci men Type: BLOOD SPECIMEN [facility]ing Facility: [facility] Address: [address] [place] [address] Performed By: #### 2 4323-8, 0-3, HSTROP #### [facility] CLIA [id number] [address] [place] [address] [place] Protein [Mass/Vol] 7.2 g/dL Normal 6.0-8.5 [facility] Comment on above: Order Comment: Speci men Type: BLOOD SPECIMEN Ordering Facility: [facility] Address: [address] [place], [place] [address] Performed By: #### 2 4323-8, 3039-3, HSTROP #### [facility] CLIA [id number] [address] [place] [address] [place] Sodium [Moles/Vol] 136 mmol/L Normal 136-145 [facility] Comment on above: Order Comment: Speci men Type: BLOOD SPECIMEN Ordering Facility: [facility] Address: [address] [place] [address] Performed By: #### 2 4323-8, 0-3, HSTROP #### [facility] CLIA [id number] [address] [place] [address] [place] Urea nitrogen [Mass/Vol] 10 mg/dL Normal 7-26 [facility] Comment on above: Order Comment: Speci men Type: BLOOD SPECIMEN Ordering Facility: [facility] Address: [address] [place] [address] Performed By: #### 2 4323-8, 0-3, HSTROP #### [facility] CLIA [id number] [address] [employer] [place] [address] [place] ECG COMPLETEon 08-11-2024 ECG COMPLETE Ventricular Rate : 7 8 BPM Atrial Rate : 78 BPM P-R Interval : 198 ms QRS Duration : 84 ms Q-T Interval : 374 ms QTC Calculation(Bazett) : 426 ms Calculated P Thurston : 47 degrees Calculated R Thurston : 63 degrees Calculated T Thurston : 47 degrees Normal sinus rhythm Normal ECG When compared with ECG of 05-Feb-2024 04:52, No significant change was found Confirmed by CECIL LANDEROS MD ([id number]) on 08/12/2024 2:10:44 PM NAME : BETSY MESA PID : [id number] : 1995 Gender : Female Race : Other ORD : [id number] Procedure Date : Aug 11 2024 02:58:03 Edit Date : Aug 12 2024 14:10:44 Diagnosis: Normal sinus rhythm Normal ECG When compared with ECG of 05-Feb-2024 04:52, No significant change was found Confirmed by CECIL LANDEROS MD ([id number]) on 08/12/2024 2:10:44 PM Test Reason : STAT Location : 0 : ED EDH02 Overread By : CECIL LANDEROS MD Edited By : CECIL LANDEROS MD Referred By : , Acquired by : [id number], [facility] ED PROV NOTEon 08-11-2024 ED PROV NOTE HNO ID: [id number] Author: RUBEN QUINTANA MD Service: ? Author Type: Physician Type: ED Provider Notes Filed: 08/11/2024 04:31 Note Text: ED Provider Note Patient Name: Betsy Mesa : 1995 SERVICE DATE: 08/11/24 History [...] pancreatitis, pyelone (more content not included)... Normal [facility] Gastrointestinal pathogens p tyra HUNG+probe (Stl)on 08-11-2024 ADENOVIRUS F 40/41 DNA Not detected Normal Not Detecte d [facility] Comment on above: Order Comment: Speci men Type: STOOL SPECIMEN [facility]ing Facility: [facility] Address: [address] [place] [address] Performed By: #### 7 9381-0 #### [facility] CLIA [id number] [address] [place] [address] [place] ASTROVIRUS RNA Not detected Normal Not Detected [facility] Comment on above: Order Comment: Speci men Type: STOOL SPECIMEN [facility]ing Facility: [facility] Address: [address] [place] [address] Performed By: #### 7 9381-0 #### [facility] CLIA [id number] [address] [place] [address] [place] C. cayetanensis DNA HUNG+probe Ql (Unsp spec) Not detected Normal Not Detected [facility] Comment on above: Order Comment: Speci men Type: STOOL SPECIMEN Ordering Facility: [facility] Address: [address] [place] [address] Performed By: #### 7 9381-0 #### [facility] CLIA [id number] [address] [place] [address] [place] [facility] [place] Campylobacter sp DNA.diarrheagenic HUNG+probe Ql (Stl) Not detected Normal Not Detected [facility] Comment on above: Order Comment: Speci men Type: STOOL SPECIMEN Ordering Facility: [facility] Address: [address] [place] [address] Performed By: #### 7 9381-0 #### [facility] CLIA [id number] [address] [place] [address] [place] Cryptosporidium sp DNA HUNG+probe Ql (Unsp spec) Not detected Normal Not Detected [facility] Comment on above: Order Comment: Speci men Type: STOOL SPECIMEN Ordering Facility: [facility] Address: [address] [place] [address] Performed By: #### 7 9381-0 #### [facility] CLIA [id number] [address] [place] [address] [place] E. coli O157:H7 DNA HUNG+probe Ql (Unsp spec) Not applicable Normal Not detected [facility] Comment on above: Order Comment: Speci men Type: STOOL SPECIMEN Ordering Facility: [facility] Address: [address] [place] [address] Performed By: #### 7 9381-0 #### [facility] CLIA [id number] [address] [place] [address] [facility] [place] E. coli stx1+stx2 genes HUNG+probe Ql (Stl) Not detected Normal Not Detected [facility] Comment on above: Order Comment: Speci men Type: STOOL SPECIMEN Ordering Facility: [facility] Address: [address] [place] [address] Performed By: #### 7 9381-0 #### [facility] CLIA [id number] [address] [place] [address] [place] E. histolytica DNA HUNG+probe Ql (Unsp spec) Not detected Normal Not Detected [facility] Comment on above: Order Comment: Speci men Type: STOOL SPECIMEN Ordering Facility: [facility] Address: [address] [place] [address] Performed By: #### 7 9381-0 #### [facility] CLIA [id number] [address] [place] [address] [place] ENTEROAGGREGATIVE E. COLI (EAEC) DNA Not detected Normal Not Detected [facility] Comment on above: Order Comment: Speci men Type: STOOL SPECIMEN Ordering Facility: [facility] Address: [address] [place] [address] Performed By: #### 7 9381-0 #### [facility] CLIA [id number] [address] [place] [address] [place] ENTEROPATHOGENIC E. COLI (EPEC) DNA Not detected Normal Not detected [facility] Comment on above: Order Comment: Speci men Type: STOOL SPECIMEN [facility]ing Facility: [facility] Address: [address] [place] [address] Performed By: #### 7 9381-0 #### [facility] CLIA [id number] [address] [place] [address] [place] ENTEROTOXIGENIC E. COLI (ETEC) DNA Not detected Normal Not Detected [facility] Comment on above: Order Comment: Speci men Type: STOOL SPECIMEN [facility]ing Facility: [facility] Address: [address] [place] [address] Performed By: #### 7 9381-0 #### [facility] CLIA [id number] [address] [place] [address] [place] G. lamblia DNA HUNG+probe Ql (Unsp spec) Not detected Normal Not Detected [facility] Comment on above: Order Comment: Speci men Type: STOOL SPECIMEN [facility]ing Facility: [facility] Address: [address] [place] [address] Performed By: #### 7 9381-0 #### [facility] CLIA [id number] [address] [place] [address] [place] [facility] [place] NOROVIRUS GI/GII RNA Not detected Normal Not Detected [facility] Comment on above: Order Comment: Speci men Type: STOOL SPECIMEN [facility]ing Facility: [facility] Address: [address] [place] [address] Performed By: #### 7 9381-0 #### [facility] CLIA [id number] [address] [place] [address] [place] PLESIOMONAS SHIGELLOIDES DNA Not detected Normal Not Detected [facility] Comment on above: Order Comment: Speci men Type: STOOL SPECIMEN Ordering Facility: [facility] Address: [address] [place] [address] Performed By: #### 7 9381-0 #### [facility] CLIA [id number] [address] [place] [address] [place] ROTAVIRUS A RNA Not detected Normal Not Detected [facility] Comment on above: Order Comment: Speci men Type: STOOL SPECIMEN [facility]ing Facility: [facility] Address: [address] [place] [address] Performed By: #### 7 9381-0 #### [facility] CLIA [id number] [address] [place] [address] [place] Salmonella sp DNA HUNG+probe Ql (Unsp spec) Not detected Normal Not Detected [facility] Comment on above: Order Comment: Speci men Type: STOOL SPECIMEN [facility]ing Facility: [facility] Address: [address] [place] [address] Performed By: #### 7 9381-0 #### [facility] CLIA [id number] [address] [place] [address] [place] SAPOVIRUS (GENOGROUPS I, II, IV, V) RNA Not detected Normal Not Detected [facility] Comment on above: Order Comment: Speci men Type: STOOL SPECIMEN [facility]ing Facility: [facility] Address: [address] [place] [address] Performed By: #### 7 9381-0 #### [facility] CLIA [id number] [address] [place] [address] [place] Shigella species+EIEC invasion plasmid antigen H ipaH gene HUNG+probe Ql (Stl) Not detected Normal Not Detected [facility] Comment on above: Order Comment: Speci men Type: STOOL SPECIMEN [facility]ing Facility: [facility] Address: [address] [place] [address] Performed By: #### 7 9381-0 #### [facility] CLIA [id number] [address] [place] [address] [place] V. cholerae DNA HUNG+probe Ql (Unsp spec) Not detected Normal Not Detected [facility] Comment on above: Order Comment: Speci men Type: STOOL SPECIMEN [facility]ing Facility: [facility] Address: [address] [place] [address] Performed By: #### 7 9381-0 #### [facility] CLIA [id number] [address] [place] [address] [place] Vibrio sp DNA HUNG+probe Nom (Unsp spec) Not detected Normal Not Detected [facility] Comment on above: Order Comment: Speci men Type: STOOL SPECIMEN [facility]ing Facility: [facility] Address: [address] [place] [address] Performed By: #### 7 9381-0 #### [facility] CLIA [id number] [address] [place] [address] [place] Yersinia sp DNA HUNG+probe Nom (Unsp spec) Not detected Normal Not Detected [facility] Comment on above: Order Comment: Speci men Type: STOOL SPECIMEN [facility]ing Facility: [facility] Address: [address] [place] [address] Performed By: #### 7 9381-0 #### [facility] CLIA [id number] [address] [place], [place] [address] [place] HCG Preg Ur Qlon 08-11-2024 HCG ( test) Ql (U) Negative Normal Negative [facility] Comment on above: Order Comment: Speci men Type: URINE SPECIMEN [facility]ing Facility: [facility] Address: [address] [place] [address] Result Comment: This test is intended to aid in the early detection of . Very dilute urine samples, as indicated by a low specific gravity, may not contain business office representative levels of hCG. This test detects [...] . Performed By: #### 2 106-3 #### [facility] CLIA [id number] [address] [place] [address] [place] HIGH SENSITIVITY TROPONIN Io n 08-11-2024 Tropinin I.cardiac panel High sensitivity method <2.5 Normal 0.0-34.0 [facility] Comment on above: Order Comment: Jessica rojo Type: BLOOD SPECIMEN [facility]ing Facility: [facility] Address: [address] [place] [address] Performed By: #### 2 4323-8, 3040-3, HSTROP #### [facility] CLIA [id number] [address] [place], [place] [address] [place] Lipase SerPl-cCncon 08-11-19 25 Lipase [Catalytic activity/Vol] 45 U/L Normal 12-60 [facility] Comment on above: Order Comment: Jessica rojo Type: BLOOD SPECIMEN [facility]ing Facility: [facility] Address: [address] [place] [address] Performed By: #### 2 4323-8, 3040-3, HSTROP #### [facility] CLIA [id number] [address] [place] [address] Urinalysis complete panel (U )on 08-11-2024 Bacteria LM.HPF (Urine sed) [#/Area] None Seen Normal None Seen [facility] Comment on above: Order Comment: Speci men Type: URINE SPECIMEN [facility] Facility: [facility] Address: [address] [place] [address] Performed By: #### 2 4356-8 #### [facility] CLIA [id number] [address] [place] [address] [place] Bilirubin Ql (U) Negative Normal Negative [facility] Comment on above: Order Comment: Speci men Type: URINE SPECIMEN [facility] Facility: [facility] Address: [address] [place] [address] Performed By: #### 2 4356-8 #### [facility] CLIA [id number] [address] [place] [address] CALCIUM OXALATE CRYSTALS (UA) Few Abnormal None Seen [facility] Comment on above: Order Comment: Speci men Type: URINE SPECIMEN [facility] Facility: [facility] Address: [address] [place] [address] Performed By: #### 2 4356-8 #### [facility] CLIA [id number] [address] [place] [address] [place] Clarity (Unsp spec) Clear Normal Clear [facility] Comment on above: Order Comment: Speci men Type: URINE SPECIMEN [facility]ing Facility: [facility] Address: [address] [place] [address] Performed By: #### 2 4356-8 #### [facility] CLIA [id number] [address] [place] [address] [place] Color (U) Yellow Normal Yellow [facility] Comment on above: Order Comment: Speci men Type: URINE SPECIMEN [facility] Facility: [facility] Address: [address] [place] [address] Performed By: #### 2 4356-8 #### [facility] CLIA [id number] [address] [place] [address] [place] Epithelial cells LM.HPF (Urine sed) [#/Area] Few Normal [facility] Comment on above: Order Comment: Speci men Type: URINE SPECIMEN [facility]ing Facility: [facility] Address: [address] [place] [address] Performed By: #### 2 4356-8 #### [facility] CLIA [id number] [address] [place] [address] OF [facility] Glucose Test strip (U) [Mass/Vol] Negative Normal Negative [facility] Comment on above: Order Comment: Speci men Type: URINE SPECIMEN Ordering Facility: [facility] Address: [address] [place] [address] Performed By: #### 2 4356-8 #### [facility] CLIA [id number] [address] [place] [address] OF [facility] Hemoglobin Ql (U) 3+ Abnormal Negative [facility] Comment on above: Order Comment: Speci men Type: URINE SPECIMEN Ordering Facility: [facility] Address: [address] [place] [address] Performed By: #### 2 4356-8 #### [facility] CLIA [id number] [address] [place] [address] [place] Ketones Ql (U) Negative Normal Negative [facility] Comment on above: Order Comment: Speci men Type: URINE SPECIMEN Ordering Facility: [facility] Address: [address] [place] [address] Performed By: #### 2 4356-8 #### [facility] CLIA [id number] [address] [place] [address] [place] Leukocyte esterase Test strip Ql (U) Trace Abnormal Negative [facility] Comment on above: Order Comment: Speci men Type: URINE SPECIMEN Ordering Facility: [facility] Address: [address] [place] [address] Performed By: #### 2 4356-8 #### [facility] CLIA [id number] [address] [place] [address] [place] Nitrite Ql (U) Negative Normal Negative [facility] Comment on above: Order Comment: Speci men Type: URINE SPECIMEN Ordering Facility: [facility] Address: [address] [place] [address] Performed By: #### 2 4356-8 #### [facility] CLIA [id number] [address] [place] [address] [place] pH (U) 6.0 [pH] Normal 5.0-8.0 [facility] Comment on above: Order Comment: Speci men Type: URINE SPECIMEN Ordering Facility: [facility] Address: [address] [place] [address] Performed By: #### 2 4356-8 #### [facility] CLIA [id number] [address] [place] [address] [place] Protein (U) [Mass/Vol] Negative Normal Negative [facility] Comment on above: Order Comment: Speci men Type: URINE SPECIMEN Ordering Facility: [facility] Address: [address] [place] [address] Performed By: #### 2 4356-8 #### [facility] CLIA [id number] [address] [place] [address] [place] RBC LM.HPF (Urine sed) [#/Area] /[HPF] Abnormal 0-3 /HPF [facility] Comment on above: Order Comment: Speci men Type: URINE SPECIMEN Ordering Facility: [facility] Address: [address] [place] [address] Performed By: #### 2 4356-8 #### [facility] CLIA [id number] [address] [place] [address] [place] Specific gravity (U) [Rel density] 1.017 Normal 1.005-1.030 [facility] Comment on above: Order Comment: Speci men Type: URINE SPECIMEN Ordering Facility: [facility] Address: [address] [place], [place] [address] Performed By: #### 2 4356-8 #### [facility] CLIA [id number] [address] [place], [place] [address] [facility] Urobilinogen Ql (U) Negative Normal Negative [facility] Comment on above: Order Comment: Speci men Type: URINE SPECIMEN Ordering Facility: [facility] Address: [address] [place] [address] Performed By: #### 2 4356-8 #### [facility] CLIA [id number] [address] [place] [address] [place] WBC LM.HPF (Urine sed) [#/Area] /[HPF] Abnormal 0-5 /HPF [facility] Comment on above: Order Comment: Speci men Type: URINE SPECIMEN Ordering Facility: [facility] Address: [address] [place] [address] Performed By: #### 2 4356-8 #### [facility] CLIA [id number] [address] [place], [place] [address] [facility] Emergency Department Summary on 08-08-2024 Emergency Department Summary [facility] Medical Records Department [address] [place] [address] Emergency Department Summary 08/08/24 MR#: [id number] Acct: [id number] Name: BETSY EMSA Rep #: [id number] : 1995 29 From: Nelson Ulloa DO [...] pain and therefore comes in for evaluation [facility] Medical History (Updated 08/08/24 @ 01:19 by [...] obvious physic (more content not included)... Normal [facility] Emergency Department Summary on 07-17-2024 Emergency Department Summary [facility] Medical Records Department [address] [place] [address] Emergency Department Summary 07/17/24 MR#: [id number] Acct: [id number] Name: BETSY MESA Rep #: [id number] : 1995 29 From: Oseas Aviles MD [...] water does help. Denies any other injury. [facility] Medical History Anxiety Paresthesias Cervical radiculopathy Cervicalgia [...] Ox 99 Oxygen Delivery Method Room Air MDM MDM Treatment and Re-Evaluation :: Differential diagnosis includes [...] area, is roughly 0.5 cm in a pamunkey. Patient will be given oral ibuprofen. She instructed use a cool compress. Patient is agreeable with the plan, she is stable for discharge Discharge Plan Triage Chief Complaint: Burn ED Midlevel Provider: Dell Ingram ED Provider: Oseas Aviles Dx/Rx/DC Orders Clinical Impression: Burn of finger Instructions: ED First- and Second-Degree Clancy ... Prescriptions: No Action metformin 500 mg tablet 500 mg PO DAILY amoxicillin (more content not included)... Normal [facility] Emergency Department Summary on 07-12-2024 Emergency Department Summary [facility] Medical Records Department [address] [place] [address] Emergency Department Summary 07/12/24 MR#: [id number] Acct: [id number] Name: BETSY MESA Rep #: [id number] : 1995 29 From: Abhinav Sofia DO [...] or vomiting. Patient denies any rhinorrhea. [facility] Medical History Anxiety Paresthesias Cervical radiculopathy Cervicalgia [...] Provider: Vishal (more content not included)... Normal [facility] M100.677on 07-12-2024 M100.677 Pending Rapid Strep A PCR A POSITIVE A Streptococcus group A Normal [facility] Comment on above: Performed By: #### L 500.2500, L100.0100 #### [facility] [address] [place], [address] M100.678on 07-12-2024 M100.678 Pending SARS-CoV-2 (COVID 19) Negative INFLUENZA A Negative INFLUENZA B Negative RSV PCR Negative Normal [facility] Comment on above: Performed By: #### L 500.2500, L100.0100 #### [facility] [address] [place], [address] Basic Metabolic Profile (BMP )on 06-16-2024 BUN/CRE 16.9 RATIO Normal - [facility] Comment on above: Performed By: #### L 501.9520, L100.0100, L500.2500, L501.5200 ####[facility] [address] [place], [address] CA,Total 9.0 mg/dL Normal 8.5-10.1 [facility] Comment on above: Performed By: #### L 501.9520, L100.0100, L500.2500, L501.5200 ####[facility] [address] [place], [address] Chloride [Moles/Vol] 108 mmol/L High 98-107 [facility] Comment on above: Performed By: #### L 501.9520, L100.0100, L500.2500, L501.5200 ####[facility] [address] [place], [address] CO2 [Moles/Vol] 28.0 mmol/L Normal 21.0-32.0 [facility] Comment on above: Performed By: #### L 501.9520, L100.0100, L500.2500, L501.5200 ####[facility] [address] [place], [address] Creatinine [Mass/Vol] 0.77 mg/dL Normal 0.55-1.02 [facility] Comment on above: Result Comment: The validity of the calculated GFR GFRAA in patients over 70 years has not been determined. Clinical correlation is essential. Performed By: #### L 501.9520, L100.0100, L500.2500, L501.5200 ####[facility] [address] [place], [address] ECRCL 138.63 ml/min Normal [facility] Comment on above: Performed By: #### L 501.9520, L100.0100, L500.2500, L501.5200 ####[facility] [address] [place], [address] EST GFR - AA 114 mL/min Normal >60 [facility] Comment on above: Result Comment: Afri can Icelandic GFR Calc Performed By: #### L 501.9520, L100.0100, L500.2500, L501.5200 ####[facility] [address] [place], [address] GAP 3 Low 5-15 [facility] Comment on above: Performed By: #### L 501.9520, L100.0100, L500.2500, L501.5200 ####[facility] [address] [place], [address] GFR/1.73 sq M.predicted among non-blacks MDRD (S/P/Bld) [Vol rate/Area] 94 mL/min/{1.73_m2} Normal >60 [facility] Comment on above: Result Comment: Non- GFR Calc Performed By: #### L 501.9520, L100.0100, L500.2500, L501.5200 ####[facility] [address] [place], [address] Glucose [Mass/Vol] 104 mg/dL Normal 74-106 [facility] Comment on above: Result Comment: Fast ing Glucose result from 100 to 125 mg/dL suggests IMPAIRED HOMEOSTASIS per A.D.A. criteria. Performed By: #### L 501.9520, L100.0100, L500.2500, L501.5200 ####[facility] [address] [place], [address] Potassium [Moles/Vol] 3.8 mmol/L Normal 3.5-5.1 [facility] Comment on above: Performed By: #### L 501.9520, L100.0100, L500.2500, L501.5200 ####[facility] [address] [place], [address] Sodium [Moles/Vol] 139 mmol/L Normal 136-145 [facility] Comment on above: Performed By: #### L 501.9520, L100.0100, L500.2500, L501.5200 ####[facility] [address] [place], [address] Urea nitrogen [Mass/Vol] 13 mg/dL Normal 7-18 [facility] Comment on above: Performed By: #### L 501.9520, L100.0100, L500.2500, L501.5200 ####[facility] [address] [place], [address] CBC W/Diff, Automatedon 11 Absolute Lymph 3.38 X10 3/uL Normal 0.83-4.51 [facility] Comment on above: Performed By: #### L 501.9520, L100.0100, L500.2500, L501.5200 ####[facility] [address] [place], [address] Absolute Neut 4.1 X10 3/uL Normal 2.0-7.7 [facility] Comment on above: Performed By: #### L 501.9520, L100.0100, L500.2500, L501.5200 ####[facility] [address] [place], [address] Basophils/100 WBC (Bld) 0.5 % Normal 0-1 [facility] Comment on above: Performed By: #### L 501.9520, L100.0100, L500.2500, L501.5200 ####[facility] [address] [place], [address] Eosinophils/100 WBC (Bld) 2.2 % Normal 0-5 [facility] Comment on above: Performed By: #### L 501.9520, L100.0100, L500.2500, L501.5200 ####[facility] [address] [place], [address] Erythrocyte distribution width (RBC) [Ratio] 14.6 % Normal 11.6-14.6 [facility] Comment on above: Performed By: #### L 501.9520, L100.0100, L500.2500, L501.5200 ####[facility] [address] [place], [address] Hematocrit (Bld) [Volume fraction] 31.0 % Low 37-47 [facility] Comment on above: Performed By: #### L 501.9520, L100.0100, L500.2500, L501.5200 ####[facility] [address] [place], [address] Hemoglobin (Bld) [Mass/Vol] 9.8 g/dL Low 12.0-15.0 [facility] Comment on above: Performed By: #### L 501.9520, L100.0100, L500.2500, L501.5200 ####[facility] [address] [place], [address] IG% 0.100 Normal 0.0-0.9 [facility] Comment on above: Result Comment: IG% - Immature Granulocytes (promyelocytes, myelocytes and metamyelocytes) > 1% indicates that a LEFT SHIFT is Present. Performed By: #### L 501.9520, L100.0100, L500.2500, L501.5200 ####[facility] [address] [place], [address] Lymphocytes/100 WBC (Bld) 41.0 % Normal 19-41 [facility] Comment on above: Performed By: #### L 501.9520, L100.0100, L500.2500, L501.5200 ####[facility] [address] [place], [address] MCH (RBC) [Entitic mass] 26.9 pg Low 27.0-32.0 [facility] Comment on above: Performed By: #### L 501.9520, L100.0100, L500.2500, L501.5200 ####[facility] [address] [place], [address] MCHC (RBC) [Mass/Vol] 31.6 g/dL Low 32-36 [facility] Comment on above: Performed By: #### L 501.9520, L100.0100, L500.2500, L501.5200 ####[facility] [address] [place], [address] MCV (RBC) [Entitic vol] 85.2 fL Normal 81-99 [facility] Comment on above: Performed By: #### L 501.9520, L100.0100, L500.2500, L501.5200 ####[facility] [address] [place], [address] Monocytes/100 WBC (Bld) 6.5 % Normal 0-10 [facility] Comment on above: Performed By: #### L 501.9520, L100.0100, L500.2500, L501.5200 ####[facility] [address] [place], [address] Neutrophils/100 WBC (Bld) 49.7 % Normal 47-70 [facility] Comment on above: Performed By: #### L 501.9520, L100.0100, L500.2500, L501.5200 ####[facility] [address] [place], [address] Nucleated RBC (Bld) [#/Vol] 0 10*3/uL Normal 0-5 [facility] Comment on above: Performed By: #### L 501.9520, L100.0100, L500.2500, L501.5200 ####[facility] [address] [place], [address] Platelet mean volume (Bld) [Entitic vol] 10.4 fL Normal 6.2-12.0 [facility] Comment on above: Performed By: #### L 501.9520, L100.0100, L500.2500, L501.5200 ####[facility] [address] [place], [address] Platelets (Bld) [#/Vol] 257 10*3/uL Normal 150-450 [facility] Comment on above: Performed By: #### L 501.9520, L100.0100, L500.2500, L501.5200 ####[facility] [address] [place], [address] RBC (Bld) [#/Vol] 3.64 10*6/uL Low 4.2-5.4 [facility] Comment on above: Performed By: #### L 501.9520, L100.0100, L500.2500, L501.5200 ####[facility] [address] [place], [address] RDW SD 45.7 fl High 35.1-43.9 [facility] Comment on above: Performed By: #### L 501.9520, L100.0100, L500.2500, L501.5200 ####[facility] [address] [place], [address] WBC (Bld) [#/Vol] 8.3 10*3/uL Normal 4.4-11.0 [facility] Comment on above: Performed By: #### L 501.9520, L100.0100, L500.2500, L501.5200 ####[facility] [address] [place], [address] Emergency Department Summary on 06-16-2024 Emergency Department Summary [facility] Medical Records Department [address] [place] [address] Emergency Department Summary 06/16/24 MR#: [id number] Acct: [id number] Name: BETSY MESA Rep #: [id number] : 1995 29 From: Nelson Ulloa DO PCP: Care Physician,No Primary Status:[facility] ER Location: ED HPI History of Present [...] thyroid and therefore comes in for evaluation [facility] Medical History Anxiety Paresthesias Cervical radiculopathy Cervicalgia [...] to ensure (more content not included)... Normal [facility] Magnesiumon 06-16-2024 Magnesium [Mass/Vol] 2.0 mg/dL Normal 1.6-2.6 [facility] Comment on above: Performed By: #### L 501.9520, L100.0100, L500.2500, L501.5200 ####[facility] [address] [place], [address] Thyroid Stim Hormone (TSH)on 06-16-2024 TSH 0.884 uIU/mL Normal 0.358-3.740 [facility] Comment on above: Performed By: #### L 501.9520, L100.0100, L500.2500, L501.5200 ####[facility] [address] [place], [address] Basic Metabolic Profile (BMP )on 05-18-2024 BUN/CRE 14.9 RATIO Normal 05-18 [facility] Comment on above: Performed By: #### L 100.0100, L500.2500 #### [facility] [address] [place], [address] CA,Total 8.9 mg/dL Normal 8.5-10.1 [facility] Comment on above: Performed By: #### L 100.0100, L500.2500 #### [facility] [address] [place], [address] Chloride [Moles/Vol] 110 mmol/L High 98-107 [facility] Comment on above: Performed By: #### L 100.0100, L500.2500 #### [facility] [address] [place], [address] CO2 [Moles/Vol] 28.0 mmol/L Normal 21.0-32.0 [facility] Comment on above: Performed By: #### L 100.0100, L500.2500 #### [facility] [address] [place], [address] Creatinine [Mass/Vol] 0.74 mg/dL Normal 0.55-1.02 [facility] Comment on above: Result Comment: The validity of the calculated GFR GFRAA in patients over 70 years has not been determined. Clinical correlation is essential. Performed By: #### L 100.0100, L500.2500 #### [facility] [address] [place], [address] ECRCL 142.50 ml/min Normal [facility] Comment on above: Performed By: #### L 100.0100, L500.2500 #### [facility] [address] [place], [address] EST GFR - AA 119 mL/min Normal >60 [facility] Comment on above: Result Comment: Afri can Icelandic GFR Calc Performed By: #### L 100.0100, L500.2500 #### [facility] [address] [place], [address] GAP 3 Low 5-15 [facility] Comment on above: Performed By: #### L 100.0100, L500.2500 #### [facility] [address] [place], [address] GFR/1.73 sq M.predicted among non-blacks MDRD (S/P/Bld) [Vol rate/Area] 99 mL/min/{1.73_m2} Normal >60 [facility] Comment on above: Result Comment: Non- GFR Calc Performed By: #### L 100.0100, L500.2500 #### [facility] [address] [place], [address] Glucose [Mass/Vol] 112 mg/dL High 74-106 [facility] Comment on above: Result Comment: Fast ing Glucose result from 100 to 125 mg/dL suggests IMPAIRED HOMEOSTASIS per A.D.A. criteria. Performed By: #### L 100.0100, L500.2500 #### [facility] [address] [place], [address] Potassium [Moles/Vol] 3.8 mmol/L Normal 3.5-5.1 [facility] Comment on above: Performed By: #### L 100.0100, L500.2500 #### [facility] [address] [place], [address] Sodium [Moles/Vol] 141 mmol/L Normal 136-145 [facility] Comment on above: Performed By: #### L 100.0100, L500.2500 #### [facility] [address] [place], [address] Urea nitrogen [Mass/Vol] 11 mg/dL Normal 7-18 [facility] Comment on above: Performed By: #### L 100.0100, L500.2500 #### [facility] [address] [place], [address] Brain/Head without Contrasto n 05-18-2024 Brain/Head without Contrast [facility] Imaging Services [address] [place] [address] Brain/Head without Contrast MR#: [id number] Acct: [id number] Name: BETSY MESA Rep #: [id number] : 1995 F 29 From: Vitaliy Talley PCP: Care Physician,No Primary Status: REG ER Study: Brain/Head without Contrast Date of Exam: 04/30 Exam# [id number] Ordering Dr: Trae Kessler DO [id number] INDICATION: headache EXAMINATION: CT BRAIN - CT [...] mass effect. There is preservation of the steward/white matter interface. Posterior fossa structures are unremarkable. [...] Trae Kessler DO; No Primary Care Physician Elevator Service Mechanic: Signed Normal [facility] CBC W/Diff, Automatedon 04-30 Absolute Lymph 2.02 X10 3/uL Normal 0.83-4.51 [facility] Comment on above: Performed By: #### L 100.0100, L500.2500 #### [facility] [address] [place], [address] Absolute Neut 3.7 X10 3/uL Normal 2.0-7.7 [facility] Comment on above: Performed By: #### L 100.0100, L500.2500 #### [facility] [address] [place], [address] Basophils/100 WBC (Bld) 0.3 % Normal 0-1 [facility] Comment on above: Performed By: #### L 100.0100, L500.2500 #### [facility] [address] [place], [address] Eosinophils/100 WBC (Bld) 2.7 % Normal 0-5 [facility] Comment on above: Performed By: #### L 100.0100, L500.2500 #### [facility] [address] [place], [address] Erythrocyte distribution width (RBC) [Ratio] 15.5 % High 11.6-14.6 [facility] Comment on above: Performed By: #### L 100.0100, L500.2500 #### [facility] [address] [place], [address] Hematocrit (Bld) [Volume fraction] 29.5 % Low 37-47 [facility] Comment on above: Performed By: #### L 100.0100, L500.2500 #### [facility] [address] [place], [address] Hemoglobin (Bld) [Mass/Vol] 9.5 g/dL Low 12.0-15.0 [facility] Comment on above: Performed By: #### L 100.0100, L500.2500 #### [facility] [address] [place], [address] IG% 0.200 Normal 0.0-0.9 [facility] Comment on above: Result Comment: IG% - Immature Granulocytes (promyelocytes, myelocytes and metamyelocytes) > 1% indicates that a LEFT SHIFT is Present. Performed By: #### L 100.0100, L500.2500 #### [facility] [address] [place], [address] Lymphocytes/100 WBC (Bld) 31.6 % Normal 19-41 [facility] Comment on above: Performed By: #### L 100.0100, L500.2500 #### [facility] [address] [place], [address] MCH (RBC) [Entitic mass] 29.0 pg Normal 27.0-32.0 [facility] Comment on above: Performed By: #### L 100.0100, L500.2500 #### [facility] [address] [place], [address] MCHC (RBC) [Mass/Vol] 32.2 g/dL Normal 32-36 [facility] Comment on above: Performed By: #### L 100.0100, L500.2500 #### [facility] [address] [place], [address] MCV (RBC) [Entitic vol] 89.9 fL Normal 81-99 [facility] Comment on above: Performed By: #### L 100.0100, L500.2500 #### [facility] [address] [place], [address] Monocytes/100 WBC (Bld) 7.2 % Normal 0-10 [facility] Comment on above: Performed By: #### L 100.0100, L500.2500 #### [facility] [address] [place], [address] Neutrophils/100 WBC (Bld) 58.0 % Normal 47-70 [facility] Comment on above: Performed By: #### L 100.0100, L500.2500 #### [facility] [address] [place], [address] Nucleated RBC (Bld) [#/Vol] 0 10*3/uL Normal 0-5 [facility] Comment on above: Performed By: #### L 100.0100, L500.2500 #### [facility] [address] [place], [address] Platelet mean volume (Bld) [Entitic vol] 10.1 fL Normal 6.2-12.0 [facility] Comment on above: Performed By: #### L 100.0100, L500.2500 #### [facility] [address] [place], [address] Platelets (Bld) [#/Vol] 260 10*3/uL Normal 150-450 [facility] Comment on above: Performed By: #### L 100.0100, L500.2500 #### [facility] [address] [place], [address] RBC (Bld) [#/Vol] 3.28 10*6/uL Low 4.2-5.4 [facility] Comment on above: Performed By: #### L 100.0100, L500.2500 #### [facility] [address] [place], [address] RDW SD 51.3 fl High 35.1-43.9 [facility] Comment on above: Performed By: #### L 100.0100, L500.2500 #### [facility] [address] [place], [address] WBC (Bld) [#/Vol] 6.4 10*3/uL Normal 4.4-11.0 [facility] Comment on above: Performed By: #### L 100.0100, L500.2500 #### [facility] [address] [place], [address] Emergency Department Summary on 05-18-2024 Emergency Department Summary [facility] Medical Records Department [address] [place] [address] Emergency Department Summary 05/18/24 MR#: [id number] Acct: [id number] Name: BETSY MESA Rep #: [id number] : 1995 29 From: Trae Kessler DO [...] symptoms. Headache is not positional in nature. [facility] Medical History Anxiety Paresthesias Cervical radiculopathy Cervicalgia [...] ROM Ext (more content not included)... Normal [facility] Basic Metabolic Profile (BMP )on 05-08-2024 BUN/CRE 17.9 RATIO Normal 05-18 [facility] Comment on above: Performed By: #### L 300.8000, L501.5200, L500.2500 #### [facility] [address] [place], [address] CA,Total 8.6 mg/dL Normal 8.5-10.1 [facility] Comment on above: Performed By: #### L 300.8000, L501.5200, L500.2500 #### [facility] [address] [facility] [address] Chloride [Moles/Vol] 106 mmol/L Normal 98-107 [facility] Comment on above: Performed By: #### L 300.8000, L501.5200, L500.2500 #### [facility] Laboratory [address] [place], [address] CO2 [Moles/Vol] 30.0 mmol/L Normal 21.0-32.0 [facility] Comment on above: Performed By: #### L 300.8000, L501.5200, L500.2500 #### [facility] [address] [place], [address] Creatinine [Mass/Vol] 0.78 mg/dL Normal 0.55-1.02 [facility] Comment on above: Result Comment: The validity of the calculated GFR GFRAA in patients over 70 years has not been determined. Clinical correlation is essential. Performed By: #### L 300.8000, L501.5200, L500.2500 #### [facility] [address] [place], [address] ECRCL 135.58 ml/min Normal [facility] Comment on above: Performed By: #### L 300.8000, L501.5200, L500.2500 #### [facility] [address] [place], [address] EST GFR - AA 112 mL/min Normal >60 [facility] Comment on above: Result Comment: Afri can Icelandic GFR Calc Performed By: #### L 300.8000, L501.5200, L500.2500 #### [facility] [address] [place], [address] GAP 2 Low 5-15 [facility] Comment on above: Performed By: #### L 300.8000, L501.5200, L500.2500 #### [facility] [address] [place], [address] GFR/1.73 sq M.predicted among non-blacks MDRD (S/P/Bld) [Vol rate/Area] 92 mL/min/{1.73_m2} Normal >60 [facility] Comment on above: Result Comment: Non- GFR Calc Performed By: #### L 300.8000, L501.5200, L500.2500 #### [facility] [address] [place], [address] Glucose [Mass/Vol] 114 mg/dL High 74-106 [facility] Comment on above: Result Comment: Fast ing Glucose result from 100 to 125 mg/dL suggests IMPAIRED HOMEOSTASIS per A.D.A. criteria. Performed By: #### L 300.8000, L501.5200, L500.2500 #### [facility] [address] [place], [address] Potassium [Moles/Vol] 4.1 mmol/L Normal 3.5-5.1 [facility] Comment on above: Performed By: #### L 300.8000, L501.5200, L500.2500 #### [facility] [address] [place], [address] Sodium [Moles/Vol] 138 mmol/L Normal 136-145 [facility] Comment on above: Performed By: #### L 300.8000, L501.5200, L500.2500 #### [facility] [address] [place], [address] Urea nitrogen [Mass/Vol] 14 mg/dL Normal 7-18 [facility] Comment on above: Performed By: #### L 300.8000, L501.5200, L500.2500 #### [facility] [address] [place], [address] CBC W/Diff, Automatedon 10-1 0-2024 Absolute Lymph 3.19 X10 3/uL Normal 0.83-4.51 [facility] Comment on above: Performed By: #### L 100.0100 #### [facility] [address] [place], [address] Absolute Neut 3.4 X10 3/uL Normal 2.0-7.7 [facility] Comment on above: Performed By: #### L 100.0100 #### [facility] [address] [place], [address] Basophils/100 WBC (Bld) 0.4 % Normal 0-1 [facility] Comment on above: Performed By: #### L 100.0100 #### [facility] [address] [place], [address] Eosinophils/100 WBC (Bld) 3.4 % Normal 0-5 [facility] Comment on above: Performed By: #### L 100.0100 #### [facility] [address] [place], [address] Erythrocyte distribution width (RBC) [Ratio] 16.6 % High 11.6-14.6 [facility] Comment on above: Performed By: #### L 100.0100 #### [facility] [address] [place], [address] Hematocrit (Bld) [Volume fraction] 26.7 % Low 37-47 [facility] Comment on above: Performed By: #### L 100.0100 #### [facility] [address] [place], [address] Hemoglobin (Bld) [Mass/Vol] 8.6 g/dL Low 12.0-15.0 [facility] Comment on above: Performed By: #### L 100.0100 #### [facility] [address] [place], [address] IG% 0.300 Normal 0.0-0.9 [facility] Comment on above: Result Comment: IG% - Immature Granulocytes (promyelocytes, myelocytes and metamyelocytes) > 1% indicates that a LEFT SHIFT is Present. Performed By: #### L 100.0100 #### [facility] [address] [place], [address] Lymphocytes/100 WBC (Bld) 43.4 % High 19-41 [facility] Comment on above: Performed By: #### L 100.0100 #### [facility] [address] [place], [address] MCH (RBC) [Entitic mass] 28.6 pg Normal 27.0-32.0 [facility] Comment on above: Performed By: #### L 100.0100 #### [facility] [address] [place], [address] MCHC (RBC) [Mass/Vol] 32.2 g/dL Normal 32-36 [facility] Comment on above: Performed By: #### L 100.0100 #### [facility] [address] [place], [address] MCV (RBC) [Entitic vol] 88.7 fL Normal 81-99 [facility] Comment on above: Performed By: #### L 100.0100 #### [facility] [address] [place], [address] Monocytes/100 WBC (Bld) 6.1 % Normal 0-10 [facility] Comment on above: Performed By: #### L 100.0100 #### [facility] [address] [place], [address] Neutrophils/100 WBC (Bld) 46.4 % Low 47-70 [facility] Comment on above: Performed By: #### L 100.0100 #### [facility] [address] [place], [address] Nucleated RBC (Bld) [#/Vol] 0 10*3/uL Normal 0-5 [facility] Comment on above: Performed By: #### L 100.0100 #### [facility] [address] [place], [address] Platelet mean volume (Bld) [Entitic vol] 11.5 fL Normal 6.2-12.0 [facility] Comment on above: Performed By: #### L 100.0100 #### [facility] [address] [place], [address] Platelets (Bld) [#/Vol] 142 10*3/uL Low 150-450 [facility] Comment on above: Performed By: #### L 100.0100 #### [facility] [address] [place], [address] RBC (Bld) [#/Vol] 3.01 10*6/uL Low 4.2-5.4 [facility] Comment on above: Performed By: #### L 100.0100 #### [facility] [address] [place], [address] RDW SD 53.8 fl High 35.1-43.9 [facility] Comment on above: Performed By: #### L 100.0100 #### [facility] [address] [place], [place], [address] WBC (Bld) [#/Vol] 7.4 10*3/uL Normal 4.4-11.0 [facility] Comment on above: Performed By: #### L 100.0100 #### [facility] [address] [place], [place], [address] CTA Chest W/WO Contraston CTA Chest W/WO Contrast [facility] Imaging Services [address] [place], [place] [address] CTA Chest W/WO Contrast MR#: [id number] Acct: [id number] Name: BETSY MESA Rep #: [id number] : 1995 F 29 From: Ning Talley PCP: ARLINE CORADO Status: [facility] Study: CTA Chest W/WO Contrast Date of Exam: 05/08/24 Exam# [id number] Ordering Dr: Nelson Ulloa DO [id number] STUDY: CTA CHEST REASON FOR EXAM: Female, [...] 5:30 EDT Reading Location ID and State: [facility] / [place] Tel , Service support , CC: ARLINE CORADO; Nelson Ulloa DO Elevator Service Mechanic: Signed Normal [facility] Chest PA and Lateralon 05-08 Chest PA and Lateral [facility] Imaging Services [address] [place] [address] Chest PA and Lateral MR#: [id number] Acct: [id number] Name: BETSY MESA Rep #: [id number] : 1995 F 29 From: Ning Talley PCP: ARLINE CORADO Status: REG ER Study: Chest PA and Lateral Date of Exam: 05/08/24 Exam# [id number] Ordering Dr: Nelson Ulloa [place] [id number] INDICATION: dyspnea EXAMINATION/TECHNIQUE: X-RAY - XR Chest [...] 4:43 EDT Reading Location ID and State: [facility] / [place] Tel , Service support , CC: ARLINE CORADO; Nelson Ulloa DO Elevator Service Mechanic: Signed Normal [facility] D-Dimer Quantitative (DVT/PE )on 05-08-2024 D-DIMER QUANT 0.91 FEU/ug/m Invalid Interpretation Code 0.27-0.49 [facility] Comment on above: Result Comment: D-Di sagar ELEVATED (>0.49): Additional studies and clinical assessments are indicated to conclude diagnosis of: Deep Vein Thrombosis (DVT) or Pulmonary Embolism (PE) [facility] 0438 Leelee Navas. RESULTS READ BACK BY SAME. Performed By: #### L 300.8000, L501.5200, L500.2500 #### [facility] [address] [facility] [place], [address] Emergency Department Summary on 05-08-2024 Emergency Department Summary [facility] Medical Records Department [address] [place] [address] Emergency Department Summary 05/08/24 MR#: [id number] Acct: [id number] Name: BETSY MESA Rep #: [id number] : 1995 29 From: Nelson Ulloa DO [...] of breath sensation she presents for evaluation [facility] Medical History Anxiety Paresthesias Cervical radiculopathy Cervicalgia [...] Skin no (more content not included)... Normal [facility] Magnesiumon 05-08-2024 Magnesium [Mass/Vol] 2.1 mg/dL Normal 1.6-2.6 [facility] Comment on above: Performed By: #### L 300.8000, L501.5200, L500.2500 #### [facility] [address] [place], [address] B-HCG SerPl-aCncon 4 HCG.beta subunit Qn 2327.0 m[IU]/mL High <5.0 [facility] Comment on above: Order Comment: Speci men Type: TISSUE SPECIMEN Ordering Facility: [facility] Address: [address] [place] [address] Result Comment: JALYN TITATIVE HCG NORMAL RANGES Weeks of Gestation (Weeks Since LMP) 3 Weeks (5.8-71.2 mIU/mL) 4 Weeks (9.5-750 mIU/mL) 5 Weeks (217-7138 mIU/mL) 6 Weeks (158-24092 mIU/mL) 7 Weeks (3697-795396 mIU/mL) 8 Weeks (27926-722125 mIU/mL) 9 Weeks (50741-847726 mIU/mL) 10 Weeks (35918-685923 mIU/mL) 12 Weeks (87151-168481 mIU/mL) Referenced to [facility]th IS [address] [facility] Performed By: #### S #### [facility] CLIA [id number] [address] [place], [place] [address] OF [facility] CNOVon 05-06-2024 CNOV Office Visit (OBGYWM ) BETSY MESA ([id number]) 1995 F Date Time Provider Department 05/06/24 2:30 PM LEELA CURRIE OBGYWM During your visit today, we recorded the following information about you: Pulse Respiration Blood pressure Weight 102/minute 18/minute 108/70 96.2 kg Leela Currie MD 05/07/2024 10:35 AM Signed Betsy Levya is a 29 year old female who presents for problem visit for vaginal bleeding, falling HCG levels. Patient's last menstrual period was 02/18/2024 (within days). Last week was seen for this and dx w/ SAB. Last night started bleeding and went to [facility] ED but long wait so went to [place] ED and they offered patient to go to [facility] or f/u in office. Patient was d/jose home to f/u today. Having waves of cramping nad passing clots, bleeding heavier than a period. Soaked through pads last night then it slowed and passed more clots. OB History T3 L3 SAB0 IAB0 Ectopic0 Multiple0 Live Births3 Short Story Writer History LMP: 02/18/2024 (Within Days), Recent Age at Menarche: Age at First : Age at Menopause: Short Story Writer History Comments: Sexual Activity: Yes; Male Contraception: [...] discussed with the Patient or Patient's Authorized Customer Support Analyst. As applicable, any other physician, advance practice provider, medical student, or other health professional student that will be observing or involved in the sensitive examination for educational or training purposes was discussed with the Patient or Authorized Customer Support Analyst. The Patient or Authorized Customer Support Analyst has agreed to proceed with the sensitive examination. (Sensitive examination includes inspection and/or palpation of the breasts, pelvis, prostate and anorectal regions). EXAM: Wt 212 lb (96.2kg) LMP 02/18/2024 GENERAL: in pain, female in mild distress ABDOMEN: soft, non-tender, and no masses PELVIC: external genitalia normal, normal Bartholin's glands, urethra, Licking's glands, no vulvar lesions, no cervical lesions, [...] EMERGENT p (more content not included)... Normal [facility] SURGICAL PATHOLOGYon CASE REPORT Normal [facility] Comment on above: Order Comment: Speci men Type: TISSUE SPECIMEN [facility] Facility: [facility] Address: [address] [place] [address] Result Comment: Surg ica Pathology Report Case: [id number] Authorizing Provider: Leela Currie MD Collected: 05/06/2024 04:56 PM Ordering Location: OB/Gynecology Received: 05/07/2024 12:08 PM Pathologist: Eli Bowen MD Specimen: Products of Conception Performed By: #### S #### [facility] CLIA [id number] [address] [place] CLINICAL HISTORY incomplete spontaneo us Normal [facility] Comment on above: Order Comment: Speci men Type: TISSUE SPECIMEN [facility]ing Facility: [facility] Address: [address] [place] [address] Performed By: #### S #### [facility] CLIA [id number] [address] [place] [address] [place] FINAL DIAGNOSIS Normal [facility] Comment on above: Order Comment: Speci men Type: TISSUE SPECIMEN [facility]ing Facility: [facility] Address: [address] [place] [address] Result Comment: A. Products of conception: - Products of conception, to include immature chorionic villi. - Decidua and gestational endometrium. Performed By: #### S #### [facility] CLIA [id number] [address] [place] [address] OF [facility] FINAL PERFORMING LAB Normal [facility] Comment on above: Order Comment: Speci men Type: TISSUE SPECIMEN [facility]ing Facility: [facility] Address: [address] [place] [address] Result Comment: Diag nostic interpretation performed at [facility], [address] [place] [address] CLIA# [id number] Burlap Spreader: Jeremiah Lemons M.D. Performed By: #### S #### [facility] CLIA [id number] [address] [place] [address] [place] GROSS DESCRIPTION Normal [facility] Comment on above: Order Comment: Speci men Type: TISSUE SPECIMEN [facility]ing Facility: [facility] Address: [address] [place] [address] Result Comment: A. P roducts of Conception Received in formalin labeled products of conception are multiple irregularly-shaped, purple-steward, soft tissue fragments admixed with blood clot aggregating to 6 x 4.5 x 0.5 cm. There is possible chorionic villi. There are no vesicles or parts. Customer Support Analyst sections are submitted in cassettes A1-A3. DAVINA May 07, 2024 3:45 PM Gross examination performed at [facility], [facility] [address] CLIA# [id number] Performed By: #### S #### [facility] CLIA [id number] [address] [facility] [address] OF [facility] PREGUon 05-05-2024 HCG ( test) Ql (U) Positive Normal [facility] Comment on above: Performed By: #### U A, PREGU, UAMIC #### [facility] [place] [address] [phone] test (u) int Detected Invalid Interpretation Code [facility] Comment on above: Performed By: #### U A, PREGU, UAMIC #### [facility] [place] [address] [phone] UAon 05-05-2024 Color (U) Straw Normal [facility] Comment on above: Performed By: #### U A, PREGU, UAMIC #### [facility] [place] [address] [phone] Glucose (U) [Mass/Vol] Negative Normal Negative AU [facility] Comment on above: Performed By: #### U A, PREGU, UAMIC #### [facility] [place] [address] [place], [place] [address] Ketones Ql (U) Negative Normal Neg-Trace [facility] Comment on above: Performed By: #### U A, PREGU, UAMIC #### [facility] [place] [address] [place], [place] [address] UA Appear Clear Normal [facility] Comment on above: Performed By: #### U A, PREGU, UAMIC #### [facility] [place] [address] [place], [place] [address] UA Blood Large Abnormal Neg-Trace [facility] Comment on above: Performed By: #### U A, PREGU, UAMIC #### [facility] [place] [address] [place] [address] UA Leuk Est Negative Normal Negative [facility] Comment on above: Performed By: #### U A, PREGU, UAMIC #### [facility] [place] [address] [place] [address] UA Nitrite Negative Normal Negative [facility] Comment on above: Performed By: #### U A, PREGU, UAMIC #### [facility] [place] [address] [place] [address] UA pH 5.5 Normal 5.0 - 8.0 [facility] Comment on above: Performed By: #### U A, PREGU, UAMIC #### [facility] [place] [address] [place] [address] UA Protein Negative Normal Negative [facility] Comment on above: Performed By: #### U A, PREGU, UAMIC #### [facility] [place] [address] [place] [address] UA Spec Grav <=1.005 Abnormal [facility] Comment on above: Performed By: #### U A, PREGU, UAMIC #### [facility] [place] [address] [place] [address] UA Specimen Type Clean Catch Normal [facility] Comment on above: Performed By: #### U A, PREGU, UAMIC #### [facility] [place] [address] [place] [address] UA Urobilinogen 0.2 E.U./dL Normal [facility] Comment on above: Performed By: #### U A, PREGU, UAMIC #### [facility] [place] [address] [place] [address] Urobilinogen (U) [Mass/Vol] Negative Normal Neg-Trace [facility] Comment on above: Performed By: #### U A, PREGU, UAMIC #### [facility] [place] [address] [place] [address] UAMICon 05-05-2024 UA Bacteria Negative Normal Negative [facility] Comment on above: Performed By: #### U A, PREGU, UAMIC #### [facility] [place] [address] [place], [place] [address] UA RBC 25-50 Abnormal 0-2 [facility] Comment on above: Performed By: #### U A, PREGU, UAMIC #### [facility] [place] [address] [place], [place] [address] UA Squam Epithelial 0-2 Normal 0-20 [facility] Comment on above: Performed By: #### U A, PREGU, UAMIC #### [facility] [place] [address] [phone] UA WBC 0-2 Normal 0-5 [facility] Comment on above: Performed By: #### U A PREGU, UAMIC #### [facility] [place] [address] [place] [address] CNPNon 05-02-2024 [facility] Telephone (OBGYWErick) BETSY MESA ([id number]) 1995 F Date Time Provider Department 05/02/24 JOSE ARANDA During your visit today, we recorded the following information about you: Irma Lin RN 05/02/2024 1:59 PM Signed ----- Message from Jose Aranda APRN.CNM sent at 05/02/2024 1:12 PM [...] Results [95] Prescriptions as of 05/07/2024 - [email or web address] ULTRA TEST test strip TEST BLOOD SUGAR [...] Status:Closed by IRMA LIN on 05/07/24 Normal [facility] B-HCG SerPl-aCncon 4 HCG.beta subunit Qn 4890.0 m[IU]/mL High <5.0 [facility] Comment on above: Order Comment: Speci men Type: TISSUE SPECIMEN [facility] Facility: [facility] Address: [address] [place] [address] Result Comment: JALYN TITATIVE HCG NORMAL RANGES Weeks of Gestation (Weeks Since LMP) 3 Weeks (5.8-71.2 mIU/mL) 4 Weeks (9.5-750 mIU/mL) 5 Weeks (217-7138 mIU/mL) 6 Weeks (158-20251 mIU/mL) 7 Weeks (3697-403167 mIU/mL) 8 Weeks (98331-718603 mIU/mL) 9 Weeks (82827-331228 mIU/mL) 10 Weeks (27477-682931 mIU/mL) 12 Weeks (17452-558772 mIU/mL) Referenced to 4th IS [address] [facility] Performed By: #### S #### [facility] CLIA [id number] [address] [place], [place] [address] [place] CNOVon 05-01-2024 CNOV Office Visit (OBGYWM ) BETSY MESA ([id number]) 1995 F Date Time Provider Department 05/01/24 1:30 PM JOSE ARANDA During your visit today, we recorded the following information about you: Blood pressure Weight 108/70 97.1 kg Jose Aranda APRN.CN 05/01/2024 2:31 PM Signed Betsy Levya is a 29 year old female [...] she started spotting and cramping this morning. 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 Normal [facility] US Pelvison 05-01-2024 Indication viability, spotting [...] Performed By: Melissa Murry RDMS Read By: Keshawn Moscoso M.D. MATERNAL MEDICINE [facility] Radiology Study observation (narrative) [facility] B-HCG SerPl-aCncon 4 HCG.beta subunit Qn 5643.0 m[IU]/mL High <5.0 [facility] Comment on above: Order Comment: Speci men Type: TISSUE SPECIMEN [facility]ing Facility: [facility] Address: [address] [place] [address] Result Comment: JALYN TITATIVE HCG NORMAL RANGES Weeks of Gestation (Weeks Since LMP) 3 Weeks (5.8-71.2 mIU/mL) 4 Weeks (9.5-750 mIU/mL) 5 Weeks (217-7138 mIU/mL) 6 Weeks (158-18833 mIU/mL) 7 Weeks (3697-305534 mIU/mL) 8 Weeks (69958-287281 mIU/mL) 9 Weeks (20402-037041 mIU/mL) 10 Weeks (81161-102349 mIU/mL) 12 Weeks (38063-496684 mIU/mL) Referenced to 4th IS of [facility] Performed By: #### S #### [facility] CLIA [id number] [address] [place] [address] [place] Bacteria Ur Culton Bacteria identified Cx Nom (U) ORGANISM ID: 1 50,000-<100,000 CFU/ml Normal urogenital marilu Normal [facility] Comment on above: Performed By: #### S #### [facility] CLIA [id number] [address] [place] [address] [place] CBC panel Auto (Bld)on 04-28 Erythrocyte distribution width (RBC) [Ratio] 16.9 % High 11.5 - 15.0 % [facility] Hematocrit (Bld) [Volume fraction] 35.1 % Low 36.0 - 46.0 % [facility] Hemoglobin (Bld) [Mass/Vol] 11.8 g/dL 11.5 - 15.5 g/dL [facility] Interpretation and review of laboratory results Abnormal [facility] MCH (RBC) [Entitic mass] 28.4 pg 26.0 - 34.0 pg [facility] MCHC (RBC) [Mass/Vol] 33.6 g/dL 30.5 - 36.0 g/dL [facility] MCV (RBC) [Entitic vol] 84.6 fL 80.0 - 100.0 fL [facility] Nucleated RBC (Bld) [#/Vol] NINF [facility] Platelet mean volume (Bld) [Entitic vol] 11.4 fL 9.0 - 12.7 fL [facility] Platelets (Bld) [#/Vol] 176 10*3/uL [facility] RBC (Bld) [#/Vol] 4.15 10*6/uL 3.90 - 5.2 0 m/uL [facility] WBC (Bld) [#/Vol] 6.68 10*3/uL [facility] Erythrocyte distribution width (RBC) [Ratio] 16.9 % High 11.5-15.0 [facility] Comment on above: Order Comment: Speci men Type: TISSUE SPECIMEN Ordering Facility: [facility] Address: [address] [place] [address] Performed By: #### S #### [facility] CLIA [id number] [address] [place] [address] [place] Hematocrit (Bld) [Volume fraction] 35.1 % Low 36.0-46.0 [facility] Comment on above: Order Comment: Speci men Type: TISSUE SPECIMEN [facility]ing Facility: [facility] Address: [address] [place] [address] Performed By: #### S #### [facility] CLIA [id number] [address] [place] [address] [place] Hemoglobin (Bld) [Mass/Vol] 11.8 g/dL Normal 11.5-15.5 [facility] Comment on above: Order Comment: Speci men Type: TISSUE SPECIMEN Ordering Facility: [facility] Address: [address] [place] [address] Performed By: #### S #### [facility] CLIA [id number] [address] [place] [address] [place] MCH (RBC) [Entitic mass] 28.4 pg Normal 26.0-34.0 [facility] Comment on above: Order Comment: Speci men Type: TISSUE SPECIMEN Ordering Facility: [facility] Address: [address] [place] [address] Performed By: #### S #### [facility] CLIA [id number] [address] [place] [address] [place] MCHC (RBC) [Mass/Vol] 33.6 g/dL Normal 30.5-36.0 [facility] Comment on above: Order Comment: Speci men Type: TISSUE SPECIMEN Ordering Facility: [facility] Address: [address] [place] [address] Performed By: #### S #### [facility] CLIA [id number] [address] [place] [address] [place] MCV (RBC) [Entitic vol] 84.6 fL Normal 80.0-100.0 [facility] Comment on above: Order Comment: Speci men Type: TISSUE SPECIMEN Ordering Facility: [facility] Address: [address] [place] [address] Performed By: #### S #### [facility] CLIA [id number] [address] [place] [address] [place] Nucleated RBC (Bld) [#/Vol] 10*3/uL Normal <0.01 [facility] Comment on above: Order Comment: Speci men Type: TISSUE SPECIMEN Ordering Facility: [facility] Address: [address] [place] [address] Performed By: #### S #### [facility] CLIA [id number] [address] [place] [address] [place] Platelet mean volume (Bld) [Entitic vol] 11.4 fL Normal 9.0-12.7 [facility] Comment on above: Order Comment: Speci men Type: TISSUE SPECIMEN Ordering Facility: [facility] Address: [address] [place] [address] Performed By: #### S #### [facility] CLIA [id number] [address] [place] [address] [place] Platelets (Bld) [#/Vol] 176 10*3/uL Normal 150-400 [facility] Comment on above: Order Comment: Speci men Type: TISSUE SPECIMEN Ordering Facility: [facility] Address: [address] [place] [address] Performed By: #### S #### [facility] CLIA [id number] [address] [place] [address] [place] RBC (Bld) [#/Vol] 4.15 10*6/uL Normal 3.90-5.20 [facility] Comment on above: Order Comment: Speci men Type: TISSUE SPECIMEN Ordering Facility: [facility] Address: [address] [place] [address] Performed By: #### S #### [facility] CLIA [id number] [address] [place] [address] [place] WBC (Bld) [#/Vol] 6.68 10*3/uL Normal 3.70-11.00 [facility] Comment on above: Order Comment: Speci men Type: TISSUE SPECIMEN Ordering Facility: [facility] Address: [facility] [place] [address] Performed By: #### S #### [facility] CLIA [id number] [address] [place] [address] [place] CNOVon 04-28-2024 CNOV Office Visit (OBGYWM ) BETSY MESA ([id number]) 1995 F Date Time Provider Department 04/28/24 11:00 AM SUSHIL VILLANUEVA During your visit today, we recorded the following information about you: Blood pressure Weight Height Last Period 116/68 97.8 kg 1.784 m 02/18/24 Sushil Villanueva APRN.DATA WAREHOUSE ANALYST 04/28/2024 12:59 PM Signed Betsy Levya is a 29 year old female who presents for problem visit of follow up ER visit for positive HCG. 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 As applicable, any other physician, advance practice provider, medical student, or other health professional student that will be observing or involved in the sensitive examination for educational or training purposes was discussed with the Patient or Authorized Customer Support Analyst. The Patient or Authorized Customer Support Analyst has agreed to proceed with the sensitive [...] - ICD9: V22.1, ICD10: Z34.91 - POC BUZZSAW OPERATOR ULTRASOUND - HCG QUANTITATIVE - COMPLETE BLOOD [...] Date Reviewed: 04/28/2024 Reviewed by: Sushil Villanueva APRN.DATA WAREHOUSE ANALYST - Fully Assessed Reason for Visit: Missed menses [Other] Primary Visit Diagnosis: with uncertain viability, single or unspecified fetus [O36.80X0] Other Visit Diagnosis: with uncertain dates in first trimester [Z34.91] Order(s):POC BUZZSAW OPERATOR ULTRASOUND [[id number]] Order #: [id number]. (more content not included)... Normal [facility] HbA1c (Bld)on 04-28-2024 Average glucose Estimated from glycated hemoglobin (Bld) [Mass/Vol] 120 mg/dL Normal [facility] Comment on above: Order Comment: Speci men Type: BLOOD SPECIMEN Ordering Facility: [facility] Address: [address] [place] [address] Result Comment: eAG: (Estimated average glucose) is a calculated value from HgbA1c and is business office representative of the average blood glucose level in the last 2-3 month period. Performed By: #### 5 5454-3 #### [facility] CLIA [id number] [address] [place] [address] [place] [address] [place] HbA1c (Bld) [Mass fraction] 5.8 % High 4.3-5.6 [facility] Comment on above: Order Comment: Speci darrel Type: BLOOD SPECIMEN Ordering Facility: [facility] Address: [address] [place] [address] Result Comment: Kisha ican Diabetes Association guidelines indicate that patients with HgbA1c in the range 5.7-6.4% are at increased risk for development of diabetes, and intervention by lifestyle modification may be beneficial. HgbA1c greater or equal to 6.5% is considered diagnostic of diabetes. Performed By: #### 5 5454-3 #### [facility] CLIA [id number] [address] [place] [address] [place] POC BUZZSAW OPERATOR ULTRASOUNDon 04-28-20 24 Indication Viability; confirm cardiac [...] Read By: Sushil Villanueva NP MATERNAL MEDICINE [facility] Radiology Study observation (narrative) [facility] TYPE + SCREEN PRENATALon ABO O Normal [facility] Comment on above: Order Comment: Yuriyi darrel Type: BLOOD SPECIMEN Ordering Facility: [facility] Address: [address] [place] [address] Performed By: #### T SPN #### [facility] CLIA [id number] [address] [place] [address] [place] Rh Nom (Bld) Positive Normal [facility] Comment on above: Order Comment: Speci men Type: BLOOD SPECIMEN Ordering Facility: [facility] Address: [address] [place] [address] Performed By: #### T SPN #### [facility] CLIA [id number] [address] [place] [address] [place] TYPE AND SCREEN EXPIRATION 05/01/2024 23:59 Normal [facility] Comment on above: Order Comment: Speci men Type: BLOOD SPECIMEN Ordering Facility: [facility] Address: [address] [place] [address] Performed By: #### T SPN #### [facility] CLIA [id number] [address] [place] [address] [place] hCG Titer Quant., Serumon HCG QUANT. 787 mIU/mL High 1-3 [facility] Comment on above: Result Comment: hCG levels with Gestational Age Gestational Age hCG mIU/mL (IU/L) 0.2 - 1 week 5 - 50 1-2 weeks 50 - 500 2-3 weeks 100 - 5000 3-4 weeks 500 - 64452 4-5 weeks 1000 - 55706 5-6 weeks 05954 - 100,000 6-8 weeks 16737 - 200,000 2-3 months 05243 - 100,000 Performed By: #### L 700.8000 ####[facility] [address] [facility] [place], [address] 12 Lead EKGon 04-03-2024 12 Lead EKG [facility] Cardiovascular Services [address] [place] [address] 12 Lead EKG 04/03/24 0641 MR#: [id number] Acct: [id number] Name: BETSY MESA Rep #: [id number] : 1995 29 From: Hero Mcadams MD Attending Dr: Status: DEP ER Ordering Dr: René Mohan MD Date: 04/03/24 Location: ED Sex: [...] Normal sinus rhythm Normal ECG Confirmed by HERO MCADAMS MD ([id number]), editorial specialist LEELEE ESCAMILLA ([id number]) on 04/03/2024 1:56:29 PM Referred By: Confirmed By:HERO MCADAMS MD 04/03/24 1356 Date Hero Mcadams MD CC: Dr. René Mohan MD; No Primary Care Physician Signed Normal [facility] CBC W/Diff, Automatedon 09-0 -2023 Absolute Lymph 2.23 X10 3/uL Normal 0.83-4.51 [facility] Comment on above: Performed By: #### L 100.0100, L700.8000 ####[facility] [address] [place], [address] Absolute Neut 2.2 X10 3/uL Normal 2.0-7.7 [facility] Comment on above: Performed By: #### L 100.0100, L700.8000 ####[facility] [address] [place], [address] Basophils/100 WBC (Bld) 0.2 % Normal 0-1 [facility] Comment on above: Performed By: #### L 100.0100, L700.8000 ####[facility] [address] [place], [address] Eosinophils/100 WBC (Bld) 2.0 % Normal 0-5 [facility] Comment on above: Performed By: #### L 100.0100, L700.8000 ####[facility] [address] [place], [address] Erythrocyte distribution width (RBC) [Ratio] 17.5 % High 11.6-14.6 [facility] Comment on above: Performed By: #### L 100.0100, L700.8000 ####[facility] [address] [place], [address] Hematocrit (Bld) [Volume fraction] 36.1 % Low 37-47 [facility] Comment on above: Performed By: #### L 100.0100, L700.8000 ####[facility] [address] [place], [address] Hemoglobin (Bld) [Mass/Vol] 11.5 g/dL Low 12.0-15.0 [facility] Comment on above: Performed By: #### L 100.0100, L700.8000 ####[facility] [address] [place], [address] IG% 0.200 Normal 0.0-0.9 [facility] Comment on above: Result Comment: IG% - Immature Granulocytes (promyelocytes, myelocytes and metamyelocytes) > 1% indicates that a LEFT SHIFT is Present. Performed By: #### L 100.0100, L700.8000 ####[facility] [address] [place], [address] Lymphocytes/100 WBC (Bld) 44.2 % High 19-41 [facility] Comment on above: Performed By: #### L 100.0100, L700.8000 ####[facility] [address] [place], [address] MCH (RBC) [Entitic mass] 27.1 pg Normal 27.0-32.0 [facility] Comment on above: Performed By: #### L 100.0100, L700.8000 ####[facility] [address] [place], [address] MCHC (RBC) [Mass/Vol] 31.9 g/dL Low 32-36 [facility] Comment on above: Performed By: #### L 100.0100, L700.8000 ####[facility] [address] [place], [address] MCV (RBC) [Entitic vol] 84.9 fL Normal 81-99 [facility] Comment on above: Performed By: #### L 100.0100, L700.8000 ####[facility] [address] [place], [address] Monocytes/100 WBC (Bld) 10.9 % High 0-10 [facility] Comment on above: Performed By: #### L 100.0100, L700.8000 ####[facility] [address] [place], [address] Neutrophils/100 WBC (Bld) 42.5 % Low 47-70 [facility] Comment on above: Performed By: #### L 100.0100, L700.8000 ####[facility] [address] [place], [address] Nucleated RBC (Bld) [#/Vol] 0 10*3/uL Normal 0-5 [facility] Comment on above: Performed By: #### L 100.0100, L700.8000 ####[facility] [address] [place], [address] Platelet mean volume (Bld) [Entitic vol] 11.2 fL Normal 6.2-12.0 [facility] Comment on above: Performed By: #### L 100.0100, L700.8000 ####[facility] [address] [place], [address] Platelets (Bld) [#/Vol] 167 10*3/uL Normal 150-450 [facility] Comment on above: Performed By: #### L 100.0100, L700.8000 ####[facility] [address] [place], [address] RBC (Bld) [#/Vol] 4.25 10*6/uL Normal 4.2-5.4 [facility] Comment on above: Performed By: #### L 100.0100, L700.8000 ####[facility] [address] [place], [address] RDW SD 54.1 fl High 35.1-43.9 [facility] Comment on above: Performed By: #### L 100.0100, L700.8000 ####[facility] [address] [place], [address] WBC (Bld) [#/Vol] 5.1 10*3/uL Normal 4.4-11.0 [facility] Comment on above: Performed By: #### L 100.0100, L700.8000 ####[facility] [address] [place], [address] Comprehensive Metabolic Prof ilon 04-03-2024 Albumin [Mass/Vol] 3.5 g/dL Normal 3.2-5.0 [facility] Comment on above: Performed By: #### L 500.4050 ####[facility] [address] [place], [address] Albumin/Globulin [Mass ratio] 1.0 {ratio} Normal 0.9-2.4 [facility] Comment on above: Performed By: #### L 500.4050 ####[facility] [address] [place], [address] ALK P 50 U/L Normal 45-117 [facility] Comment on above: Performed By: #### L 500.4050 ####[facility] [address] [place], [address] ALT [Catalytic activity/Vol] 17 U/L Normal 13-56 [facility] Comment on above: Performed By: #### L 500.4050 ####[facility] [address] [place], [address] AST [Catalytic activity/Vol] 16 U/L Normal 15-37 [facility] Comment on above: Performed By: #### L 500.4050 ####[facility] [address] [place], [address] Bilirubin [Mass/Vol] 0.10 mg/dL Low 0.20-1.00 [facility] Comment on above: Result Comment: For patients on eltrombopag therapy, use of Dimension [place] TBIL is not recommended. Performed By: #### L 500.4050 ####[facility] [address] [place], [address] BUN/CRE 9.4 RATIO Low 10-20 [facility] Comment on above: Performed By: #### L 500.4050 ####[facility] [address] [place], [address] CA,Total 8.8 mg/dL Normal 8.5-10.1 [facility] Comment on above: Performed By: #### L 500.4050 ####[facility] [address] [place], [address] Chloride [Moles/Vol] 106 mmol/L Normal 98-107 [facility] Comment on above: Performed By: #### L 500.4050 ####[facility] [address] [place], [address] CO2 [Moles/Vol] 25.0 mmol/L Normal 21.0-32.0 [facility] Comment on above: Performed By: #### L 500.4050 ####[facility] [address] [place], [address] Creatinine [Mass/Vol] 0.74 mg/dL Normal 0.55-1.02 [facility] Comment on above: Result Comment: The validity of the calculated GFR GFRAA in patients over 70 years has not been determined. Clinical correlation is essential. Performed By: #### L 500.4050 ####[facility] [address] [place], [address] ECRCL 141.89 ml/min Normal [facility] Comment on above: Performed By: #### L 500.4050 ####[facility] [address] [place], [address] EST GFR - AA 118 mL/min Normal >60 [facility] Comment on above: Result Comment: Afri can Icelandic GFR Calc Performed By: #### L 500.4050 ####[facility] [address] [place], [address] GAP 5 Normal 5-15 [facility] Comment on above: Performed By: #### L 500.4050 ####[facility] [address] [place], [address] GFR/1.73 sq M.predicted among non-blacks MDRD (S/P/Bld) [Vol rate/Area] 98 mL/min/{1.73_m2} Normal >60 [facility] Comment on above: Result Comment: Non- GFR Calc Performed By: #### L 500.4050 ####[facility] [address] [place], [address] Globulin (S) [Mass/Vol] 3.6 g/dL Normal 2.2-4.2 [facility] Comment on above: Performed By: #### L 500.4050 ####[facility] [address] [place], [address] Glucose [Mass/Vol] 110 mg/dL High 74-106 [facility] Comment on above: Result Comment: Fast ing Glucose result from 100 to 125 mg/dL suggests IMPAIRED HOMEOSTASIS per A.D.A. criteria. Performed By: #### L 500.4050 ####[facility] [address] [place], [address] Potassium [Moles/Vol] 3.7 mmol/L Normal 3.5-5.1 [facility] Comment on above: Performed By: #### L 500.4050 ####[facility] [address] [place], [address] Sodium [Moles/Vol] 136 mmol/L Normal 136-145 [facility] Comment on above: Performed By: #### L 500.4050 ####[facility] [address] [place], [address] T PROT 7.1 g/dL Normal 6.4-8.2 [facility] Comment on above: Performed By: #### L 500.4050 ####[facility] [address] [place], [address] Urea nitrogen [Mass/Vol] 7 mg/dL Normal 7-18 [facility] Comment on above: Performed By: #### L 500.4050 ####[facility] [address] [place], [address] Emergency Department Summary on 04-03-2024 Emergency Department Summary [facility] Medical Records Department [address] [place] [address] Emergency Department Summary 04/03/24 MR#: [id number] Acct: [id number] Name: BONITABETSY J Rep #: [id number] : 1995 29 From: René Mohan MD [...] she has not followed up with an NBA PLAYER yet. [facility] Medical History Anxiety Paresthesias Cervical radiculopathy Cervicalgia [...] rhythm. No (more content not included)... Normal [facility] M100.678on 04-03-2024 M100.678 Copy of report sent to Infection Control Printer [id number] 04/03/24 0726 BLUCAS. FLUABV+SARS-CoV-2+RSV Pnl Resp HUNG+probe SARS-CoV-2 (COVID 19) A Positive A INFLUENZA A Negative INFLUENZA B Negative RSV PCR Negative SARS-CoV-2 (COVID 19 PCR) Normal [facility] Comment on above: Performed By: #### L 500.2500, L100.0100 #### [facility] [address] [place], [address] ,Urineon 04-03-2024 Beta HCG ( test) Ql (U) Positive Abnormal [facility] Comment on above: Order Comment: CLEAN CATCH Result Comment: PREG LAMIN TEST is *POSITIVE* Performed By: #### L 500.2500, L100.0100 #### [facility] [address] [place], [address] Transvaginal w/Preg USon Transvaginal w/Preg US [facility] Imaging Services [address] [place] [address] Transvaginal w/Preg US MR#: [id number] Acct: [id number] Name: BETSY MESA Rep #: [id number] : 1995 F 29 From: Zack wood MD PCP: Care Physician,No Primary Status: REG ER Study: Transvaginal w/Preg US Date of Exam: 04/03/24 Exam# [id number] Ordering Dr: René Mohan [place] [id number] EXAM: US , TRANSVAGINAL CLINICAL INDICATION: Elevated [...] 7:55 EDT Reading Location ID and State: [facility] / [place] , Service support , CC: Dr. René Mohan MD; No Primary Care Physician Elevator Service Mechanic: Signed Normal [facility] Urinalysis, Completeon 04-03 EPI,SQUAMOUS 0-5 SEEN Normal 5-10 [facility] Comment on above: Order Comment: CLEAN CATCH Performed By: #### L 500.2500, L100.0100 #### [facility] [address] [place], [address] BACTERIA 0 SEEN Normal None Seen [facility] Comment on above: Order Comment: CLEAN CATCH Performed By: #### L 500.2500, L100.0100 #### [facility] [address] [place], [address] Mucus Ql (Urine sed) 0 SEEN Normal [facility] Comment on above: Order Comment: CLEAN CATCH Performed By: #### L 500.2500, L100.0100 #### [facility] [address] [place], [address] RBC 0 SEEN Normal 0-5 [facility] Comment on above: Order Comment: CLEAN CATCH Performed By: #### L 500.2500, L100.0100 #### [facility] [address] [place], [place], [address] WBC 0 SEEN Normal 0-5 [facility] Comment on above: Order Comment: CLEAN CATCH Performed By: #### L 500.2500, L100.0100 #### [facility] [address] [place], [place], [address] hCG Titer Quant., Serumon HCG QUANT. 434 mIU/mL High 1-3 [facility] Comment on above: Result Comment: hCG levels with Gestational Age Gestational Age hCG mIU/mL (IU/L) 0.2 - 1 week 5 - 50 1-2 weeks 50 - 500 2-3 weeks 100 - 5000 3-4 weeks 500 - 15256 4-5 weeks 1000 - 41358 5-6 weeks 32886 - 100,000 6-8 weeks 43649 - 200,000 2-3 months 26129 - 100,000 Performed By: #### L 100.0100, L700.8000 ####[facility] [address] [place], [place], [address] A1Con 02-20-2024 Glucose [Mass/Vol] 137 mg/dL Normal [facility] ([place]) Comment on above: Result Comment: Sarah mated Average Glucose calculated by equation ((28.7xA1C)-46.7) Estimated average glucose (eAG) is a calculated value from Hemoglobin A1C and is business office representative of the average blood glucose level in the last 2-3 month period. Normal range: less than 114 mg/dL Performed By: #### N GPCR1, CTPCR #### [address] [address] HbA1c (Bld) [Mass fraction] 6.4 % High 4.0-6.0 [facility] ([place]) Comment on above: Performed By: #### N GPCR1, CTPCR #### [facility] [address] [place] [address] FT3on 02-20-2024 Free T3 [Mass/Vol] 3.01 pg/mL Normal 2.30-4.20 [facility] ([place]) Comment on above: Performed By: #### F T4, FT3 #### [address] [address] FT4on 02-20-2024 Free T4 [Mass/Vol] 1.02 ng/dL Normal 0.89-1.76 [facility] ([place]) Comment on above: Result Comment: No te - New Reference Range in effect 20 Performed By: #### F T4, FT3 #### [address] [address] .Auto Diffon 02-19-2024 Basophil, Absolute 0.0 10 3/mcL Normal 0.0-0.3 [facility] ([place]) Comment on above: Performed By: #### T SH, CBC, A1C, FE, ANEU, FERR, ADIFF, CMP, GFR, MG #### [place] [address] Basophils/100 WBC (Bld) 0.4 % Normal 0.0-2.5 [facility] ([place]) Comment on above: Performed By: #### T SH, CBC, A1C, FE, ANEU, FERR, ADIFF, CMP, GFR, MG #### [address] [address] Eosinophil, Absolute 0.2 10 3/mcL Normal 0.0-0.7 [facility] ([place]) Comment on above: Performed By: #### T SH, CBC, A1C, FE, ANEU, FERR, ADIFF, CMP, GFR, MG #### [address] [address] Eosinophils/100 WBC (Bld) 2.7 % Normal 0.0-6.0 [facility] ([place]) Comment on above: Performed By: #### T SH, CBC, A1C, FE, ANEU, FERR, ADIFF, CMP, GFR, MG #### [address] [address] Lymphocyte, Absolute 2.1 10 3/mcL Normal 0.9-4.3 [facility] ([place]) Comment on above: Performed By: #### T SH, CBC, A1C, FE, ANEU, FERR, ADIFF, CMP, GFR, MG #### [address] [address] Lymphocytes/100 WBC (Bld) 30.6 % Normal 20.0-40.0 [facility] ([place]) Comment on above: Performed By: #### T SH, CBC, A1C, FE, ANEU, FERR, ADIFF, CMP, GFR, MG #### [address] [address] Monocyte, Absolute 0.4 10 3/mcL Normal 0.1-1.4 [facility] ([place]) Comment on above: Performed By: #### T SH, CBC, A1C, FE, ANEU, FERR, ADIFF, CMP, GFR, MG #### [address] [address] Monocytes/100 WBC (Bld) 5.7 % Normal 2.0-13.0 [facility] ([place]) Comment on above: Performed By: #### T SH, CBC, A1C, FE, ANEU, FERR, ADIFF, CMP, GFR, MG #### [address] [address] Neutrophils/100 WBC (Bld) 60.6 % Normal 50.0-75.0 [facility] ([place]) Comment on above: Performed By: #### T SH, CBC, A1C, FE, ANEU, FERR, ADIFF, CMP, GFR, MG #### [address] [address] .GFRon 02-19-2024 GFR >60 Normal [facility] ([place]) Comment on above: Result Comment: GFR Population [...] Performed By: #### N GPCR1, CTPCR #### [address] [address] GFR Non- >60 Normal [facility] ([place]) Comment on above: Result Comment: GFR Population [...] Performed By: #### N GPCR1, CTPCR #### [address] [address] .NEUABSon 02-19-2024 Neutrophil, Absolute 4.1 10 3/mcL Normal 2.3-8.1 [facility] ([place]) Comment on above: Performed By: #### T SH, CBC, A1C, FE, ANEU, FERR, ADIFF, CMP, GFR, MG #### [address] [address] CBCon 02-19-2024 Erythrocyte distribution width (RBC) [Ratio] 17.6 % High 11.5-15.5 [facility] ([place]) Comment on above: Performed By: #### T SH, CBC, A1C, FE, ANEU, FERR, ADIFF, CMP, GFR, MG #### [address] [address] Hematocrit (Bld) [Volume fraction] 35.4 % Normal 34.0-46.0 [facility] ([place]) Comment on above: Performed By: #### T SH, CBC, A1C, FE, ANEU, FERR, ADIFF, CMP, GFR, MG #### [place] [address] Hgb 11.3 G/dL Low 12.0-16.0 [facility] ([place]) Comment on above: Performed By: #### T SH, CBC, A1C, FE, ANEU, FERR, ADIFF, CMP, GFR, MG #### [place] [address] MCH (RBC) [Entitic mass] 26.5 pg Low 27.0-33.0 [facility] ([place]) Comment on above: Performed By: #### T SH, CBC, A1C, FE, ANEU, FERR, ADIFF, CMP, GFR, MG #### [place] [address] MCHC 32.0 G/dL Normal 32.0-36.0 [facility] ([place]) Comment on above: Performed By: #### T SH, CBC, A1C, FE, ANEU, FERR, ADIFF, CMP, GFR, MG #### [place] [address] MCV (RBC) [Entitic vol] 82.9 fL Normal 80.0-99.0 [facility] ([place]) Comment on above: Performed By: #### T SH, CBC, A1C, FE, ANEU, FERR, ADIFF, CMP, GFR, MG #### [place] [address] Platelet 205 10 3/mcL Normal 150-450 [facility] ([place]) Comment on above: Performed By: #### T SH, CBC, A1C, FE, ANEU, FERR, ADIFF, CMP, GFR, MG #### [place] [address] Platelet mean volume (Bld) [Entitic vol] 9.5 fL Normal 6.6-10.5 [facility] ([place]) Comment on above: Performed By: #### T SH, CBC, A1C, FE, ANEU, FERR, ADIFF, CMP, GFR, MG #### [place] [address] RBC 4.27 10 6/mcL Normal 4.10-5.30 [facility] ([place]) Comment on above: Performed By: #### T SH, CBC, A1C, FE, ANEU, FERR, ADIFF, CMP, GFR, MG #### [place] [address] WBC 6.8 10 3/mcL Normal 4.5-10.8 [facility] ([place]) Comment on above: Performed By: #### T SH, CBC, A1C, FE, ANEU, FERR, ADIFF, CMP, GFR, MG #### [place] [address] CMPon 02-19-2024 Albumin Level 3.8 G/dL Normal 3.2-4.8 [facility] ([place]) Comment on above: Performed By: #### N GPCR1, CTPCR #### [place] [address] Albumin/Globulin [Mass ratio] 1.2 {ratio} Normal 0.9-1.6 [facility] ([place]) Comment on above: Performed By: #### N GPCR1, CTPCR #### [place] [address] ALP [Catalytic activity/Vol] 63 U/L Normal 38-126 [facility] ([place]) Comment on above: Performed By: #### N GPCR1, CTPCR #### [place] [address] ALT [Catalytic activity/Vol] 17 U/L Normal 10-49 [facility] ([place] Comment on above: Performed By: #### N GPCR1, CTPCR #### [place] [address] AST [Catalytic activity/Vol] 14 U/L Normal 8-34 [facility] ([place] Comment on above: Performed By: #### N GPCR1, CTPCR #### [place] [address] Bili Total 0.30 mg/dL Normal 0.20-1.20 [facility] ([place]) Comment on above: Result Comment: Use of this assay is not recommended for patients undergoing treatment with eltrombopag due to the potential for falsely elevated results. Performed By: #### N GPCR1, CTPCR #### [address] [address] BUN/Creatinine Ratio 14.3 ratio Normal 10.0-22.0 [facility] ([place]) Comment on above: Performed By: #### N GPCR1, CTPCR #### [address] [address] Calcium [Mass/Vol] 9.9 mg/dL Normal 8.7-10.4 [facility] ([place]) Comment on above: Performed By: #### N GPCR1, CTPCR #### [address] [address] Chloride [Moles/Vol] 108 mmol/L Normal 98-110 [facility] ([place]) Comment on above: Performed By: #### N GPCR1, CTPCR #### [address] [address] CO2 [Moles/Vol] 28 mmol/L Normal 22-32 [facility] ([place]) Comment on above: Performed By: #### N GPCR1, CTPCR #### [address] [address] Creatinine [Mass/Vol] 0.70 mg/dL Normal 0.50-1.20 [facility] ([place]) Comment on above: Performed By: #### N GPCR1, CTPCR #### [address] [address] Electrolyte Balance 3.0 mEq/L Low 4.0-15.0 [facility] [place] Comment on above: Performed By: #### N GPCR1, CTPCR #### [address] [address] Globulin 3.3 G/dL Normal 1.5-3.8 [facility] ([place]) Comment on above: Performed By: #### N GPCR1, CTPCR #### [address] [address] Glucose [Mass/Vol] 94 mg/dL Normal 70-110 [facility] ([place] Comment on above: Performed By: #### N GPCR1, CTPCR #### [address] [address] Potassium [Moles/Vol] 4.3 mmol/L Normal 3.5-5.0 [facility] ([place]) Comment on above: Performed By: #### N GPCR1, CTPCR #### [address] [address] Sodium [Moles/Vol] 139 mmol/L Normal 136-145 [facility] ([place] Comment on above: Performed By: #### N GPCR1, CTPCR #### [place] [address] Total Protein 7.1 G/dL Normal 5.7-8.2 [facility] ([place]) Comment on above: Result Comment: No te - New Reference Range in effect 20 Performed By: #### N GPCR1, CTPCR #### [place] [address] Urea nitrogen [Mass/Vol] 10.0 mg/dL Normal 8.0-22.0 [facility] ([place]) Comment on above: Performed By: #### N GPCR1, CTPCR #### [place] [address] FEon 02-19-2024 Iron [Mass/Vol] 36 ug/dL Low 50-170 [facility] ([place]) Comment on above: Performed By: #### T SH, CBC, A1C, FE, ANEU, FERR, ADIFF, CMP, GFR, MG #### [place] [id number] Michael 02-19-2024 Ferritin [Mass/Vol] 2.7 ng/mL Low 8.0-252.0 [facility] [place] Comment on above: Performed By: #### T SH, CBC, A1C, FE, ANEU, FERR, ADIFF, CMP, GFR, MG #### [address] [address] LABORATORYOrdered By: SYSTEM SYSTEM on 02-19-2024 Albumin BCP dye [Mass/Vol] 3.8 G/dL Normal 3.2 - 4.8 G/dL ADM SS Albumin/Globulin [Mass ratio] 1.2 {ratio} Normal 0.9 - 1.6 ratio ADM SS ALP [Catalytic activity/Vol] 63 U/L [...] 0.30 mg/dL Normal 0.20 - 1.20 mg/dL ADM SS Comment on above: Interpretive Data: U se of this assay is not recommended for patients undergoing treatment with eltrombopag due to the potential for falsely elevated results. Calcium [Mass/Vol] 9.9 mg/dL Normal 8.7 - 10. 4 mg/dL ADM SS Chloride [Moles/Vol] 108 mmol/L Normal 98 - 11 0 mEq/L ADM SS CO2 [Moles/Vol] 28 mmol/L Normal 22 - 32 mEq/L ADM SS Creatinine [Mass/Vol] 0.70 mg/dL Normal 0.50 - 1.20 mg/dL ADM SS Electrolyte Balance 3.0 mEq/L Low [...] rate/Area] ml/min/1.73sqm Invalid Interpretation Code Chemistry S Comment on above: Interpretive Data: [...] rate/Area] ml/min/1.73sqm Invalid Interpretation Code Chemistry S Comment on above: Interpretive Data: [...] Glucose [Mass/Vol] 137 mg/dL Invalid Interpretation Code Auto Chem SS Comment on above: Interpretive Data: E stimated average glucose (eAG) is a calculated value from Hemoglobin A1C and is business office representative of the average blood glucose level in the last 2-3 month period. Normal range: less than 114 mg/dL HbA1c (Bld) [Mass fraction] 6.4 % High 4.0 - 6.0 % Auto Chem SS Hematocrit (Bld) [Volume fraction] 35.4 % Normal 34.0 - 46.0 % Workflow SS Hemoglobin (Bld) [Mass/Vol] 11.3 G/dL Low 12.0 - 16.0 G/dL AH Workflow SS Iron [Mass/Vol] 36 ug/dL Low 50 - 170 mcg/dL AH ADM SS Lymphocytes (Bld) [#/Vol] 2.1 103/mcL Normal 0.9 - 4.3 10^3/mcL AH Workflow SS Lymphocytes/100 WBC (Bld) 30.6 % Normal 20.0 - 40.0 % AH Workflow SS Magnesium [Mass/Vol] 1.9 mg/dL Normal 1.6 - 2 .4 mg/dL AH ADM SS MCH (RBC) [Entitic mass] 26.5 [...] 4.3 mmol/L Normal 3.5 - 5.0 mEq/L AH ADM SS Protein [Mass/Vol] 7.1 G/dL Normal 5.7 - 8.2 G/dL AH ADM SS Comment on above: Interpretive Data: * *Note - New Reference Range in effect 20 RBC (Bld) [#/Vol] 4.27 106/mcL Normal 4.10 - 5.3 0 10^6/mcL AH Workflow SS Sodium [Moles/Vol] 139 mmol/L Normal 136 - 145 mEq/L AH ADM SS TSH Qn 0.121 mIU/mL Low 0.550 - 4.780 mIU/mL AH ADM SS Comment on above: Interpretive Data: * *Note - New Reference Range in effect 20 Urea nitrogen [Mass/Vol] 10.0 mg/dL Normal 8.0 - 22.0 mg/dL AH ADM SS Urea nitrogen/Creatinine [Mass ratio] 14.3 ratio Normal 10.0 - 22.0 ratio AH ADM SS WBC (Bld) [#/Vol] 6.8 103/mcL Normal 4.5 - 10.8 10^3/mcL Workflow SS MGon 02-19-2024 Magnesium [Mass/Vol] 1.9 mg/dL Normal 1.6-2.4 [facility] ([place]) Comment on above: Performed By: #### N GPCR1, CTPCR #### [place] [address] TSHon 02-19-2024 TSH 0.121 mIU/mL Low 0.550-4.780 [facility] ([place]) Comment on above: Result Comment: No te - New Reference Range in effect 20 Performed By: #### N GPCR1, CTPCR #### [place] [address] CTPCRon 02-07-2024 C. trachomatis Interp Normal See CT Interp N [facility] ([place]) Comment on above: Result Comment: C. t rachomatis DNA not detected. Specimen is presumptive negative for C. trachomatis. A negative result does not preclude C. trachomatis infection because results depend on adequate specimen collection, absence of inhibitors, and sufficient DNA to be detected. See CT Interp N Performed By: #### N GPCR1, CTPCR #### [place] [address] C.trachomatis PCR Negative Normal Negative [facility] ([place]) Comment on above: Result Comment: Mateo cosme (PCR) assay performed on the [employer] Sera 4800 system. Performed By: #### N GPCR1, CTPCR #### [place] [id number] Chlam Source Cervix Normal [facility] ([place]) Comment on above: Performed By: #### N GPCR1, CTPCR #### [address] [address] [id number] 02-07-2024 GC PCR Source Cervix Normal [facility] ([place]) Comment on above: Performed By: #### N GPCR1, CTPCR #### [facility] [address] [place] [address] N. gonorrhoeae (PCR) Negative Normal Negative [facility] ([place]) Comment on above: Result Comment: Mole cular (PCR) assay performed on the Jose Sera 4800 System. Performed By: #### N GPCR1, CTPCR #### [address] [address] N. gonorrhoeae Interp Normal See NG Interp N [facility] ([place]) Comment on above: Result Comment: N. g onorrhoeae DNA not detected. Specimen is presumptive negative for N. gonorrhoeae. A negative result does not preclude Neisseria gonorrhoeae infection because results depend on adequate specimen collection, absence of inhibitors, and sufficient DNA to be detected. See NG Interp N Performed By: #### N GPCR1, CTPCR #### [place] [address] CTPCRon 01-02-2024 C. trachomatis Interp Normal [facility] ([place]) Comment on above: Result Comment: C. t rachomatis DNA not detected. Specimen is presumptive negative for C. trachomatis. A negative result does not preclude C. trachomatis infection because results depend on adequate specimen collection, absence of inhibitors, and sufficient DNA to be detected. See CT Interp N Performed By: #### C TPCR #### [address] [address] C.trachomatis PCR Negative Normal Negative [facility] ([place]) Comment on above: Result Comment: Mole cular (PCR) assay performed on the Jose Sera 4800 system. Performed By: #### C TPCR #### [address] [address] Chlam Source Vaginal Normal [facility] ([place]) Comment on above: Performed By: #### C TPCR #### [address] [address] [id number] 01-02-2024 GC PCR Source Vaginal Normal [facility] ([place]) Comment on above: Performed By: #### N GPCR1, CTPCR #### [address] [address] N. gonorrhoeae (PCR) Negative Normal Negative [facility] ([place]) Comment on above: Result Comment: Mole cular (PCR) assay performed on the Jose Sera 4800 System. Performed By: #### N GPCR1, CTPCR #### [address] [address] N. gonorrhoeae Interp Normal See NG Interp N [facility] ([place]) Comment on above: Result Comment: N. g onorrhoeae DNA not detected. Specimen is presumptive negative for N. gonorrhoeae. A negative result does not preclude Neisseria gonorrhoeae infection because results depend on adequate specimen collection, absence of inhibitors, and sufficient DNA to be detected. See NG Interp N Performed By: #### N GPCR1, CTPCR #### [address] [address] CASE MANAGEMon 12-11-2023 CASE MANAGEM HNO ID: [id number] Author: ALLY LEHMAN RN Service: ? Author [...] Primary Care Physician Name/Phone: Dr. Marcelo Isbell [phone] Additional Information: Patient being discharged home today with self-care. S.O. to transport. No TCC needs. SIGNATURE: Ally Lehman RN PATIENT NAME: Betsy Meas DATE: December 11, 2023 TIME: 3:07 PM CONTACT #: [phone] Normal [facility] CNDSon 12-11-2023 CNDS HNO ID: [id number] Author: LORETA FROST MD Service: Hospital Medicine Author Type: Physician Type: Discharge Summary Filed: 12/11/2023 12:39 Note Text: DISCHARGE SUMMARY PATIENT NAME: Betsy Mesa Code Status: Full Code Highest Readmission [...] Attending Provider: Loreta Frost MD Primary Service: [facility] Consulting: Cecil Ramirez MD MY CONDITION AT [...] call for appointment?: Yes Marcelo Isbell DO [phone] [address] PCP Requested Referral Follow-Up Appointment For right-sided facial numbness and headache When: In 1 week Patient/Parents to call for appointment?: Yes Cecil Ramirez MD [phone] [facility] [address] PCP Requested Referral Additional Provider to Provider Information: Treatment Team: Attending Provider: Loreta Frost MD Primary Service: [facility] Consulting: Cecil Ramirez MD Transitions of Care Critical Issues: SPECIALIST FOLLOW-UP: Neurology if numbness persists GIL MEDICATION CHANGES: Amlodipine 5 mg p.o. daily, metformin 500 mg p.o. every morning LABS AND PROCEDURES PENDING AT DISCHARGE: No pending results. FOLLOW-UP APPOINTMENTS ALREADY SCHEDULED WITH A [facility] PROVIDER: No future appointments. ALLERGIES Allergen Reactions [...] Commonly k (more content not included)... Normal [facility] CONSULTon 12-11-2023 CONSULT HNO ID: [id number] Author: ALICIA ARELLANO MD Service: Neurology General Author Type: Physician Type: Consults Filed: 12/11/2023 10:40 Note Text: Neurology Consultation Note Date: December 11, 2023 Patient Name: Betsy Mesa Neurology was requested by Loreta Ramon to evaluate Betsy Mesa, a 28 year old female for a chief complaint of right facial numbness. Our recommendations of care will be communicated by shared medical record. HPI: This is Ms. Betsy Mesa a 28 year old female with [...] as needed for Pain.Disp: 30 tabletRfl: 0 Yktrtyku-So-Rdg-Fe-FA ( VITAMIN) tabTake 1 tablet by mouth [...] exam revea (more content not included)... Normal [facility] ALLIED HEALTHon 12-10-2023 ALLIED HEALTH HNO ID: [id number] Author: CHARLIE WESTON RT(R) Service: Radiology Author Type: Technologist Type: [...] PATIENT PRESENTS WITH AN IMPLANTABLE OR ATTACHED GRAPHIC EDITOR: No ALLERGIES: Reviewed and unchanged CONTRAST ALLERGY: NO. EXAM: MRI - CONTRAST TYPE: GROUP II PERIPHERAL IV DATA: Inpatient - refer to LDA documentation RADIOLOGY DEPARTMENT: MR; Exam(s) Completed: Head: Routine Brain SIGNATURE: Charlie SundayRT(R) PATIENT NAME: Betsy Mesa DATE: December 10, 2023 TIME: 9:13 PM Normal [facility] Basic metabolic 2000 panelon 12-10-2023 Anion gap [Moles/Vol] 15 mmol/L Normal 9-18 [facility] Comment on above: Order Comment: Speci men Type: BLOOD SPECIMEN Ordering Facility: [facility] Address: [address] [place] [address] Performed By: #### 2 4320-2, 86899-8 #### [facility] CLIA [id number] [address] [place] Calcium [Mass/Vol] 8.9 mg/dL Normal 8.5-10.2 [facility] Comment on above: Order Comment: Speci men Type: BLOOD SPECIMEN Ordering Facility: [facility] Address: [address] [place] [address] Performed By: #### 2 4320-2, 76649-6 #### [facility] CLIA [id number] [address] [place] [address] [place] Chloride [Moles/Vol] 106 mmol/L High 97-105 [facility] Comment on above: Order Comment: Speci men Type: BLOOD SPECIMEN Ordering Facility: [facility] Address: [address] [place] [address] Performed By: #### 2 4320-08, 79591-8 #### [facility] CLIA [id number] [address] [place] [address] [place] CO2 [Moles/Vol] 19 mmol/L Low 22-30 [facility] Comment on above: Order Comment: Speci men Type: BLOOD SPECIMEN Ordering Facility: [facility] Address: [address] [place] [address] Performed By: #### 2 2, 05330-5 #### [facility] CLIA [id number] [address] [place] Creatinine [Mass/Vol] 0.69 mg/dL Normal 0.58-0.96 [facility] Comment on above: Order Comment: Speci men Type: BLOOD SPECIMEN Ordering Facility: [facility] Address: [address] [place] [address] Performed By: #### 2 4320-2, 83926-4 #### [facility] CLIA [id number] [address] [place] Creatinine and Glomerular filtration rate.predicted panel (S/P/Bld) 121 mL/min/1.73m??? Normal >=60 [facility] Comment on above: Order Comment: Jessica rojo Type: BLOOD SPECIMEN Ordering Facility: [facility] Address: [address] [place] [address] Result Comment: Sarah mated Glomerular Filtration Rate [...] actual GFR. Performed By: #### 2 4321-2, 63306-4 #### [facility] CLIA [id number] [address] [place] [address] [place] Glucose [Mass/Vol] 80 mg/dL Normal 74-99 [facility] Comment on above: Order Comment: Jessica rojo Type: BLOOD SPECIMEN Ordering Facility: [facility] Address: [address] [place] [address] Result Comment: The [place] Diabetes Association (ADA) provides guidance for cutoff [...] Standards of Medical Care in Diabetes 2016, [place] Diabetes Association. Diabetes Care. 2016.39(Suppl 1). Performed By: #### 2 4321-2, 43436-1 #### [facility] CLIA [id number] [address] [place] [address] [place] Potassium [Moles/Vol] 3.5 mmol/L Low 3.7-5.1 [facility] Comment on above: Order Comment: Jessica rojo Type: BLOOD SPECIMEN Ordering Facility: [facility] Address: [address] [place] [address] Performed By: #### 2 4321-2, 73760-4 #### [facility] CLIA [id number] [address] OF [facility] Sodium [Moles/Vol] 140 mmol/L Normal 136-144 [facility] Comment on above: Order Comment: Speci men Type: BLOOD SPECIMEN Ordering Facility: [facility] Address: [address] [place] [address] Performed By: #### 2 4321-2, 98319-0 #### [facility] CLIA [id number] [address] [place] Urea nitrogen [Mass/Vol] 8 mg/dL Normal 7-21 [facility] Comment on above: Order Comment: Speci men Type: BLOOD SPECIMEN Ordering Facility: [facility] Address: [address] [place] [address] Performed By: #### 2 4321-2, 48646-4 #### [facility] CLIA [id number] [address] [place] CASE MGT INIT ASSESon 2023 CASE MGT INIT ASSES HNO ID: [id number] Author: ALLY LEHMAN RN Service: ? Author Type: Registered Nurse Type: Care Mgt Initial Assessment Filed: 12/10/2023 15:00 Note Text: CARE MANAGEMENT: ASSESSMENT AND DISCHARGE PLAN SERVICE DATE: December 10, 2023 SERVICE TIME: 8 PCP: Marcelo Isbell DO Primary Contact: Extended Emergency Contact Information Primary Emergency Contact: Cooper Baca Mobile Relation: Significant other Admission Status: Observation Insurance Provider: [facility] [employer] MEDICAID OF [place] Discharge Planning requested by: Per Department Practice Potential Transition Plans No Services Indicated;Home Advance Directives Current Advance Directive: None Tobacco Grower Attempted to Assist with AD Completion: Yes [...] Be able to go home, Independent living [employer] of Choice Explained: [employer] of Choice Given: No Reason Not Given: [...] December 10, 2023 TIME: 2:58 PM Normal [facility] HCG Preg Ur Qlon 12-10-2023 HCG ( test) Ql (U) Negative Normal Negative [facility] Comment on above: Order Comment: Speci men Type: URINE SPECIMEN Ordering Facility: [facility] Address: [address] [place] [address] Result Comment: This test is intended to aid in the early detection of . Very dilute urine samples, as indicated by a low specific gravity, may not contain business office representative levels of hCG. This test detects [...] . Performed By: #### 2 106-3 #### [facility] CLIA [id number] 1 [place] [id number] [place] HISTORY PHYSICALon HISTORY PHYSICAL HNO ID: [id number] Author: ARJUN DICKSON DO Service: Hospital Medicine Author Type: Physician Type: H&P Filed: 12/09/2023 23:52 Note Text: DEPARTMENT OF HOSPITAL MEDICINE HISTORY AND PHYSICAL EXAM SERVICE DATE: 12/09/2023 SERVICE TIME: 11:18 PM Primary Care Physician: Estrella Pcp, YANNICK NIGHT AND WEEKEND COVERAGE: LOGAN COVERAGE: From 7am - 7pm, please call sound After 7pm, please call cross cover pager #[phone] Subjective CHIEF COMPLAINT: Right facial numbness HPI: [...] for Pain., Disp: 30 tablet, Rfl: 0 Sxonophk-Yf-Zhi-Fe-FA ( VITAMIN) tab, Take 1 tablet by [...] 12/09/23 17:36 (more content not included)... Normal [facility] HbA1c (Bld)on 12-10-2023 Average glucose Estimated from glycated hemoglobin (Bld) [Mass/Vol] 134 mg/dL Normal [facility] Comment on above: Order Comment: Jessica rojo Type: BLOOD SPECIMEN Ordering Facility: [facility] Address: [address] [place] [address] Result Comment: eAG: (Estimated average glucose) is a calculated value from HgbA1c and is business office representative of the average blood glucose level in the last 2-3 month period. Performed By: #### 2 4321-2, 47427-5 #### [facility] CLIA [id number] [address] [place] [address] [place] HbA1c (Bld) [Mass fraction] 6.3 % High 4.3-5.6 [facility] Comment on above: Order Comment: Jessica rojo Type: BLOOD SPECIMEN Ordering Facility: [facility] Address: [address] [place] [address] Result Comment: Amer ican Diabetes Association guidelines indicate that patients with HgbA1c in the range 5.7-6.4% are at increased risk for development of diabetes, and intervention by lifestyle modification may be beneficial. HgbA1c greater or equal to 6.5% is considered diagnostic of diabetes. Performed By: #### 2 4321-2, 49662-7 #### [facility] CLIA [id number] [address] OF [facility] Lipid 1996 panelon 4 Cholesterol [Mass/Vol] 135 mg/dL Normal <200 [facility] Comment on above: Order Comment: Speci men Type: BLOOD SPECIMEN Ordering Facility: [facility] Address: [address] [place] [address] Result Comment: <200 mg/dL, Desirable 200-239 mg/dL, Borderline high >239 mg/dL, High Performed By: #### 2 4320-2, 66886-0 #### [facility] CLIA [id number] [address] Cholesterol in HDL [Mass/Vol] 39 mg/dL Low >39 [facility] Comment on above: Order Comment: [facility] Type: BLOOD SPECIMEN Ordering Facility: [facility] Address: [address] [place] [address] Result Comment: 40-5 9 mg/dL, Acceptable >59 mg/dL, High: Negative risk factor for coronary heart disease <40 mg/dL, Low: Positive risk factor for coronary heart disease Performed By: #### 2 4320-2, 36631-2 #### [facility] CLIA [id number] [address] Cholesterol in LDL [Mass/Vol] 80 mg/dL Normal <100 [facility] Comment on above: Order Comment: [facility] Type: BLOOD SPECIMEN Ordering Facility: [facility] Address: [address] [place] [address] Result Comment: <100 mg/dL, Optimal 100-129 mg/dL, Near optimal/above optimal 130-159 mg/dL, Borderline high 160-189 mg/dL, High >189 mg/dL, Very high Secondary prevention optimal LDL Cholesterol levels are recommended to be < 70 mg/dL Performed By: #### 2 4320-2, 11374-8 #### [facility] CLIA [id number] [address] Cholesterol in LDL/Cholesterol in HDL [Mass ratio] 2.05 {ratio} Normal <2.54 [facility] Comment on above: Order Comment: Jessica rojo Type: BLOOD SPECIMEN Ordering Facility: [facility] Address: [address] [place] [address] Result Comment: Refe rence: 1. National Cholesterol Education Program ATP III Guideline At-A-Glance Quick Desk Reference: National Heart, Lung, and Blood [place]. National Institutes of Health. 2001: NIH Publication No. 01-3305. 2. An International Atherosclerosis Society position paper: global recommendations for the management of dyslipidemia: executive summary, Atherosclerosis. 2014: 232(2):410-413. Performed By: #### 2 4321-2, 38544-8 #### [facility] CLIA [id number] [address] Cholesterol in VLDL [Mass/Vol] 16 mg/dL Normal <30 [facility] Comment on above: Order Comment: Jessica rojo Type: BLOOD SPECIMEN Ordering Facility: [facility] Address: [address] [place] [address] Performed By: #### 2 4321-2, 60555-8 #### [facility] CLIA [id number] [address] [place] Cholesterol non HDL [Mass/Vol] 96 mg/dL Normal <130 [facility] Comment on above: Order Comment: Jessica darrel Type: BLOOD SPECIMEN Ordering Facility: [facility] Address: [address] [place] [address] Result Comment: <130 mg/dL, Optimal 130-159 mg/dL, Near optimal/above optimal 160-189 mg/dL, Borderline high 190-219 mg/dL, High >219 mg/dL, Very high Secondary prevention optimal non HDL Cholesterol levels are recommended to be <100 mg/dL Performed By: #### 2 4321-2, 64615-2 #### [facility] CLIA [id number] [address] Cholesterol.total/Chol esterol in HDL [Mass ratio] 3.46 {ratio} Normal <5.10 [facility] Comment on above: Order Comment: Jessica rojo Type: BLOOD SPECIMEN Ordering Facility: [facility] Address: [address] [place] [address] Performed By: #### 2 4321-2, 62147-8 #### [facility] CLIA [id number] [address] FASTING TIME 8 hrs Normal [facility] Comment on above: Order Comment: Speci men Type: BLOOD SPECIMEN Ordering Facility: [facility] Address: [address] [place] [address] Performed By: #### 2 4321-2, 79640-5 #### [facility] CLIA [id number] [address] Triglyceride [Mass/Vol] 80 mg/dL Normal <150 [facility] Comment on above: Order Comment: Speci darrel Type: BLOOD SPECIMEN Ordering Facility: [facility] Address: [address] [place] [address] Result Comment: <150 mg/dL, Normal 150-199 mg/dL, Borderline high 200-499 mg/dL, High >499 mg/dL, Very high Performed By: #### 2 4321-2, 90187-1 #### [facility] CLIA [id number] [address] MRI BRAIN WO/W IVCONon 12-09 MRI BRAIN WO/W IVCON * * *Final Report* * * DATE OF EXAM: Dec 10 2023 9:29PM [facility] 0295 - MRI BRAIN WO/W IVCON / [...] clinical examination, and consider further evaluation accordingly. Elevator Service Mechanic: RADHA Transcribe Date/Time: Dec 10 2023 9:30P Dictated by : JOSUE HARRISON MD This examination was interpreted and the report reviewed and electronically signed by: JOSUE HARRISON MD on Dec 10 2023 9:38PM EST [id number] Normal [facility] THERAPY NTon 12-10-2023 THERAPY NT HNO ID: [id number] Author: DARRIUS GONZALEZ PT Service: Physical Therapy Author Type: Physical Therapist Type: Therapy (PT/OT/Speech/Resp) Filed: 12/10/2023 09:08 Note Text: PHYSICAL THERAPY MISSED VISIT SERVICE DATE: 12/10/2023 SERVICE TIME: 837 ROOM: [place] [address] Patient not seen due to Clinical Appropriateness (per OT no needs--only has facial numbness no mobility limitations--in room indep). Will D/C PT order SIGNATURE: Darrius Gonzalez PT PATIENT NAME: Betsy Mesa DATE: December 10, 2023 TIME: 9:07 AM Normal [facility] THERAPY NT HNO ID: [id number] Author: [place], ROJELIOR/Alina Service: Occupational Therapy Author Type: Occupational Therapist Type: Therapy (PT/OT/Speech/Resp) Filed: 12/10/2023 08:42 Note Text: OCCUPATIONAL THERAPY MISSED VISIT SERVICE DATE: 12/10/2023 SERVICE TIME: ROOM: [place] [address] Patient not seen due to (Screened). Spoke with pt, identified no acute OT needs. Pt appears to be at her baseline for mobility and self-care tasks. Pt with family support at home, reports no concerns related to return home. Will sign off at this time. SIGNATURE: KEVIN Mchugh/Alina PATIENT NAME: Betsy Mesa DATE: December 10, 2023 TIME: 8:41 AM Normal [facility] Basic metabolic 2000 panelon 12-09-2023 Anion gap [Moles/Vol] 15 mmol/L Normal 9-18 [facility] Comment on above: Order Comment: Speci men Type: BLOOD SPECIMEN [facility]ing Facility: [facility] Address: [address] [place] [address] Performed By: #### 1 9123-9, 84191037-7 #### [facility] CLIA [id number] 1 [place] [address] [place] Calcium [Mass/Vol] 9.1 mg/dL Normal 8.5-10.2 [facility] Comment on above: Order Comment: Speci men Type: BLOOD SPECIMEN Ordering Facility: [facility] Address: [address] [place] [address] Performed By: #### 1 9123-9, 94516-6 #### [facility] CLIA [id number] 1 [place] [address] [place] Chloride [Moles/Vol] 105 mmol/L Normal 97-105 [facility] Comment on above: Order Comment: Speci men Type: BLOOD SPECIMEN Ordering Facility: [facility] Address: [address] [place] [address] Performed By: #### 1 91239, 61014-6 #### [facility] CLIA [id number] [address] OF [facility] CO2 [Moles/Vol] 22 mmol/L Normal 22-30 [facility] Comment on above: Order Comment: Speci men Type: BLOOD SPECIMEN Ordering Facility: [facility] Address: [address] [place] [address] Performed By: #### 1 91, 76524-5 #### [facility] CLIA [id number] [address] OF [facility] Creatinine [Mass/Vol] 0.76 mg/dL Normal 0.58-0.96 [facility] Comment on above: Order Comment: Speci men Type: BLOOD SPECIMEN Ordering Facility: [facility] Address: [address] [place] [address] Performed By: #### 1 919, 50870-9 #### [facility] CLIA [id number] [address] [place] [address] Creatinine and Glomerular filtration rate.predicted panel (S/P/Bld) 110 mL/min/1.73m??? Normal >=60 [facility] Comment on above: Order Comment: Speci men Type: BLOOD SPECIMEN Ordering Facility: [facility] Address: [address] [place] [address] Result Comment: Sarah mated Glomerular Filtration Rate [...] actual GFR. Performed By: #### 1 9123-9, 43896-8 #### [facility] CLIA [id number] 1 [place] [address] [place] Glucose [Mass/Vol] 110 mg/dL High 74-99 [facility] Comment on above: Order Comment: Jessica rojo Type: BLOOD SPECIMEN Ordering Facility: [facility] Address: [address] [place] [address] Result Comment: The [place] Diabetes Association (ADA) provides guidance for cutoff [...] Standards of Medical Care in Diabetes 2016, [place] [employer] Association. Diabetes Care. 2016.39(Suppl 1). Performed By: #### 1 9123-9, 86489-7 #### [facility] CLIA [id number] 1 [place] [address] [place] Potassium [Moles/Vol] 3.3 mmol/L Low 3.7-5.1 [facility] Comment on above: Order Comment: Jessica rojo Type: BLOOD SPECIMEN Ordering Facility: [facility] Address: [address] [place] [address] Performed By: #### 1 9123-9, 99660-1 #### [facility] CLIA [id number] 1 [place] [address] [place] Sodium [Moles/Vol] 142 mmol/L Normal 136-144 [facility] Comment on above: Order Comment: Jessica rojo Type: BLOOD SPECIMEN Ordering Facility: [facility] Address: [address] [place] [address] Performed By: #### 1 9123-9, 70172-9 #### [facility] CLIA [id number] 1 [place] [address] [place] Urea nitrogen [Mass/Vol] 8 mg/dL Normal 7-21 [facility] Comment on above: Order Comment: Speci men Type: BLOOD SPECIMEN Ordering Facility: [facility] Address: [address] [place] [address] Performed By: #### 1 9123-9, 81826-7 #### [facility] CLIA [id number] [address] CBC panel Auto (Bld)on 12-08 Erythrocyte distribution width (RBC) [Ratio] 15.3 % High 11.5-15.0 [facility] Comment on above: Order Comment: Speci men Type: BLOOD SPECIMEN Ordering Facility: [facility] Address: [address] [place] [address] Performed By: #### 5 8410-2 #### [facility] CLIA [id number] [address] OF [facility] Hematocrit (Bld) [Volume fraction] 34.9 % Low 36.0-46.0 [facility] Comment on above: Order Comment: Speci men Type: BLOOD SPECIMEN Ordering Facility: [facility] Address: [address] [place] [address] Performed By: #### 5 8410-2 #### [facility] CLIA [id number] [address] Hemoglobin (Bld) [Mass/Vol] 11.2 g/dL Low 11.5-15.5 [facility] Comment on above: Order Comment: Speci men Type: BLOOD SPECIMEN Ordering Facility: [facility] Address: [address] [place] [address] Performed By: #### 5 8410-2 #### [facility] CLIA [id number] [address] STATES [facility] MCH (RBC) [Entitic mass] 27.3 pg Normal 26.0-34.0 [facility] Comment on above: Order Comment: Speci men Type: BLOOD SPECIMEN Ordering Facility: [facility] Address: [address] [place] [address] Performed By: #### 5 8410-2 #### [facility] CLIA [id number] [address] OF [facility] MCHC (RBC) [Mass/Vol] 32.1 g/dL Normal 30.5-36.0 [facility] Comment on above: Order Comment: Speci men Type: BLOOD SPECIMEN Ordering Facility: [facility] Address: [address] [place] [address] Performed By: #### 5 8410-2 #### [facility] CLIA [id number] [address] MCV (RBC) [Entitic vol] 85.1 fL Normal 80.0-100.0 [facility] Comment on above: Order Comment: Speci men Type: BLOOD SPECIMEN Ordering Facility: [facility] Address: [address] [place] [address] Performed By: #### 5 8410-2 #### [facility] CLIA [id number] [address] Nucleated RBC (Bld) [#/Vol] 10*3/uL Normal <0.01 [facility] Comment on above: Order Comment: Speci men Type: BLOOD SPECIMEN Ordering Facility: [facility] Address: [address] [place] [address] Performed By: #### 5 8410-2 #### [facility] CLIA [id number] [address] OF [facility] Platelet mean volume (Bld) [Entitic vol] 11.2 fL Normal 9.0-12.7 [facility] Comment on above: Order Comment: Speci men Type: BLOOD SPECIMEN [facility]ing Facility: [facility] Address: [address] [place] [address] Performed By: #### 5 8410-2 #### [facility] CLIA [id number] [address] Platelets (Bld) [#/Vol] 212 10*3/uL Normal 150-400 [facility] Comment on above: Order Comment: Speci men Type: BLOOD SPECIMEN Ordering Facility: [facility] Address: [address] [place] [id number] Performed By: #### 5 8410-2 #### [facility] CLIA [id number] [address] [place] RBC (Bld) [#/Vol] 4.10 10*6/uL Normal 3.90-5.20 [facility] Comment on above: Order Comment: Speci men Type: BLOOD SPECIMEN [facility]ing Facility: [facility] Address: [address] [place] [address] Performed By: #### 5 8410-2 #### [facility] CLIA [id number] [address] [place] WBC (Bld) [#/Vol] 7.45 10*3/uL Normal 3.70-11.00 [facility] Comment on above: Order Comment: Speci men Type: BLOOD SPECIMEN [facility]ing Facility: [facility] Address: [address] [place] [address] Performed By: #### 5 8410-2 #### [facility] CLIA [id number] [address] [place] BRAIN ATTACK WO IVCONon 0 12-09-2023 CT BRAIN ATTACK WO IVCON * * *Final Report* * * DATE OF EXAM: Dec 09 2023 5:45PM [facility] 0502 - CT BRAIN ATTACK WO IVCON [...] ROC MUNIZ on 12/09/2023 5:51PM . CR_1 Elevator Service Mechanic: RADHA Transcribe Date/Time: Dec 09 2023 6:00P Dictated by : JONATHAN WEISS MD This examination was interpreted and the report reviewed and electronically signed by: JONATHAN WEISS MD on Dec 09 2023 6:11PM EST [id number] CRITICAL!! Invalid Interpretation Code [facility] CTA HEAD W IVCONon CTA HEAD W IVCON * * *Final Report* * * DATE OF EXAM: Dec 09 2023 5:51PM [facility] 0022 - CTA HEAD W IVCON / [...] proximal basilar fenestration, seen best on smaller hxvrx-kv-rtcl focused images through the region. The basilar artery is patent and relatively small secondary to large posterior communicating arteries bilaterally. Both posterior cerebral arteries are widely patent. Manager Order (topogram) images: No additional findings. IMPRESSION: 1. No evidence of significant carotid or vertebral artery stenosis 2. Proximal basilar fenestration noted 3. No evidence of an acute intracranial large vessel occlusion Arterial blood flow was measured to detect acute large vessel occlusion by computer aided detection software: Not Performed. Concordance between software and imaging review: Not Applicable. Elevator Service Mechanic: RADHA Transcribe Date/Time: Dec 09 2023 6:19P Dictated by : JONATHAN WEISS MD This examination was interpreted and the report reviewed and electronically signed by: JONATHAN WEISS MD on Dec 09 2023 6:32PM EST [id number] Normal [facility] CTA NECK W IVCONon 4 CTA NECK W IVCON * * *Final Report* * * DATE OF EXAM: Dec 09 2023 5:51PM [facility] 0024 - CTA NECK W IVCON / [...] proximal basilar fenestration, seen best on smaller ayslp-xd-udfi focused images through the region. The basilar artery is patent and relatively small secondary to large posterior communicating arteries bilaterally. Both posterior cerebral arteries are widely patent. Manager Order (topogram) images: No additional findings. IMPRESSION: 1. No evidence of significant carotid or vertebral artery stenosis 2. Proximal basilar fenestration noted 3. No evidence of an acute intracranial large vessel occlusion Arterial blood flow was measured to detect acute large vessel occlusion by computer aided detection software: Not Performed. Concordance between software and imaging review: Not Applicable. Elevator Service Mechanic: RADHA Transcribe Date/Time: Dec 09 2023 6:19P Dictated by : JONATHAN WEISS MD This examination was interpreted and the report reviewed and electronically signed by: JONATHAN WEISS MD on Dec 09 2023 6:32PM EST [id number] [facility] ED NOTEon 12-09-2023 ED NOTE HNO ID: [id number] Author: JUAN A FREEMAN RN Service: Emergency Medicine Author Type: Registered Nurse Type: ED Notes Filed: 12/09/2023 22:00 Note Text: Report called to receiving RN on 9100 [facility] ED NOTE HNO ID: [id number] Author: JUAN A FREEMAN RN Service: Emergency Medicine Author Type: Registered Nurse Type: ED Notes Filed: 12/09/2023 22:01 Note Text: Performed dysphagia screening on pt, pt passed screening. Pt provided with applesauce and crackers x2. Pt has possessions and call light within reach. Pt updated on status of admit and bed being ready. Pt understanding at this time. [facility] ED NOTE HNO ID: [id number] Author: MAGALIS PIERCE RN Service: Emergency Medicine Author Type: Registered Nurse Type: ED Notes Filed: 12/09/2023 17:36 Note Text: Blood sugar 116 [facility] ED NOTE HNO ID: [id number] Author: DOM ALCOCER RN Service: ? Author Type: Registered Nurse Type: ED Notes Filed: 12/09/2023 16:54 Note Text: No answer for triage x1 [facility] ED PROV NOTEon 12-09-2023 ED PROV NOTE HNO ID: [id number] Author: ROC MUNIZ MD Service: Emergency Medicine Author Type: Physician Type: ED Provider Notes Filed: 12/11/2023 18:52 Note Text: ED Provider Note Patient Name: Betsy Mesa : 1995 SERVICE DATE: 12/09/23 History [...] is from kissing. 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: Patient enamel dipper used: No PAST MEDICAL HISTORY Diagnosis Date [...] Row Nam (more content not included)... Normal [facility] ED PROV NOTE HNO ID: [id number] Author: ROC MUNIZ MD Service: Emergency Medicine [...] of her upper or lower extremities. Normal tovgxo-fc-vzrw. Visual french normal. Critical Care I spent a total of 40 minutes of critical care time in the evaluation and management of this patient. This was necessary to treat or prevent deterioration of the following condition(s): BRAN MIXER impairment, which the patient had and/or has a high probability of suddenly developing. The patient received Consultation by Stroke neurology during the time that critical care was provided.I discussed the plan of care with the RESIDENT and agree with the findings documented. Critical care time excludes separately billed procedures. MD TOMAS Buenrostro JNO J 12/09/23 2329 Normal [facility] ED Triage Noteon 12-09-2023 ED Triage Note HNO ID: [id number] Author: SHERIN GUERRA APRN.DATA WAREHOUSE ANALYST Service: ? Author Type: Nurse Practitioner Type: ED Triage Notes Filed: 12/09/2023 17:06 Note Text: ED TRIAGE PROVIDER NOTE Patient Name: Betsy Mesa Service Date: 12/09/23 BRIEF HPI: This [...] encounter. EKG Directly roomed SIGNATURE: Sherin Guerra APRN.DATA WAREHOUSE ANALYST Normal [facility] EKGon 12-09-2023 Electrocardiogram Ventricular Rate : 9 9 BPM Atrial Rate : 99 BPM P-R Interval : 186 ms QRS Duration : 80 ms Q-T Interval : 342 ms QTC Calculation(Bazett) : 438 ms Calculated P Thurston : 45 degrees Calculated R Thurston : 55 degrees Calculated T Thurston : 27 degrees NORMAL SINUS RHYTHM NONSPECIFIC T WAVE ABNORMALITY NO PREVIOUS ECGS AVAILABLE Confirmed by MD MUNIZ JNO ([id number]) on 12/09/2023 6:44:50 PM NAME : BETSY MESA PID : [id number] : 1995 Gender : Female Race : Other ORD : Procedure Date : Dec 09 2023 17:06:20 Edit Date : Dec 09 2023 18:44:54 Diagnosis: NORMAL SINUS RHYTHM NONSPECIFIC T WAVE ABNORMALITY NO PREVIOUS ECGS AVAILABLE Confirmed by MD MUNIZ JNO ([id number]) on 12/09/2023 6:44:50 PM Test Reason : Location : 4 : [facility] EM Overread By : MD MUNIZ JNO Edited By : MD MUNIZ JNO Referred By : , Acquired by : SONIYA ECHOLS Normal [facility] HIGH SENSITIVITY TROPONIN To n 12-09-2023 Troponin T.cardiac High sensitivity method [Mass/Vol] <6 Normal <12 [facility] Comment on above: Order Comment: Speci men Type: BLOOD SPECIMEN [facility]ing Facility: [facility] Address: [address] [place] [address] Result Comment: When assessing risk for acute [...] MACE. Performed By: #### H STNT #### [facility] CLIA [id number] [address] [place] Magnesium SerPl-mCncon 12-08 Magnesium [Mass/Vol] 1.9 mg/dL Normal 1.7-2.3 [facility] Comment on above: Order Comment: Jessica rojo Type: BLOOD SPECIMEN [facility]ing Facility: [facility] Address: [address] [place] [address] Performed By: #### 1 9123-9, 71103-2 #### [facility] CLIA [id number] [address] [place] [address] [place] PT panel Coag (PPP)on 2023 INR Coag (PPP) [Relative time] 1.1 {INR} Normal 0.9-1.3 [facility] Comment on above: Order Comment: Jessica rojo Type: BLOOD SPECIMEN [facility]ing Facility: [facility] Address: [address] [place] [address] Result Comment: Akos[place] min K Antagonist (VKA) Therapeutic Range: INR 2 to 3 (Target INR of 2.5) Note: For patients treated with VKA drugs, such as warfarin, the [place] [employer] 2012 Guideline recommends [...] to 3.5 (target INR of 3). Rios GH, et al. Chest 2012, 141:7S-47S Kim RA, et al. [facility] 2017, 70: 252-289 Performed By: #### 3 4528-0, 48830-6 #### [facility] CLIA [id number] [address] [place] [address] [place] PT Coag (PPP) [Time] 11.4 s Normal 9.7-13.0 [facility] Comment on above: Order Comment: Speci men Type: BLOOD SPECIMEN [facility] Facility: [facility] Address: [address] [place] [address] Performed By: #### 3 4528-0, 65805-9 #### [facility] CLIA [id number] [address] [place] aPTT PPPon 12-09-2023 aPTT Coag (PPP) [Time] 26.9 s Normal 23.0-32.4 [facility] Comment on above: Order Comment: Speci men Type: BLOOD SPECIMEN [facility] Facility: [facility] Address: [address] [place] [address] Performed By: #### 3 4528-0, 41864-9 #### [facility] CLIA [id number] [address] [place] [id number] [place] [facility] XR HIP 2-3 VIEWS LEFTon 040 XR HIP 2-3 VIEWS LEFT ORIGINAL EXAMINATION: [...] 11/05/2023 12:32:55 PM Ordering Provider: JOSÉ MIGUEL MAGALLANES [facility] ([place]) BASIC METABOLIC PANELon 03-1 Anion gap [Moles/Vol] 8.4 mmol/L Low 11-23 [facility] Comment on above: Performed By: #### D SANA #### [facility] [address] [facility] [place] [address] Calcium [Mass/Vol] 8.4 mg/dL Low 8.5-10.1 [facility] Comment on above: Performed By: #### D SANA #### [facility] [address] [facility] [place] [address] Chloride [Moles/Vol] 112 mmol/L High 98-107 [facility] Comment on above: Performed By: #### D SANA #### [facility] [address] [place] [address] CO2 [Moles/Vol] 26.0 mmol/L Normal 21-32 [facility] Comment on above: Performed By: #### D SANA #### [address] [place] [address] Creatinine [Mass/Vol] 0.80 mg/dL Normal 0.55-1.02 [facility] Comment on above: Performed By: #### D SANA #### [address] [place] [address] GFR > 60.0 [facility] Comment on above: Performed By: #### D SANA #### [facility] [address] [facility] [place] [address] GFR AM > 60.0 [facility] Comment on above: Result Comment: THE NORMAL LEVEL OF GFR VARIES ACCORDING TO AGE, SEX, AND BODY SIZE. A GFR LEVEL OF LESS THAN 60 ML/MIN REPRESENTS LOSS OF THE ADULT LEVEL OF NORMAL KIDNEY FUNCTION. Performed By: #### D SANA #### [facility] [address] [facility] [place] [address] Glucose [Mass/Vol] 153 mg/dL High 70-100 [facility] Comment on above: Performed By: #### D SANA #### [facility] [address] [facility] [place] [address] Potassium [Moles/Vol] 3.8 mmol/L Normal 3.5-5.1 [facility] Comment on above: Performed By: #### D SANA #### [address] [place] [address] Sodium [Moles/Vol] 142 mmol/L Normal 136-145 [facility] Comment on above: Performed By: #### D SANA #### [address] [address] Urea nitrogen [Mass/Vol] 9.0 mg/dL Normal 7-18 [facility] Comment on above: Performed By: #### D SANA #### [address] [address] HCG URINEon 10-15-2023 Beta HCG ( test) Ql (U) Positive Normal [facility] Comment on above: Order Comment: What Is Urine Source? Clean [place]atch [place] Performed By: #### D SANA #### [address] [address] URINALYSISon 10-15-2023 Color (U) Savita Normal [facility] Comment on above: Order Comment: What Is Urine Source? [place] What Is Urine Source? Clean [place] Performed By: #### U A, UMIC #### [address] [address] URINE MICROSCOPICon 10-15-19 24 URINE BACTERIA FEW Normal <1+ [facility] Comment on above: Performed By: #### U A, UMIC #### [address] [address] URINE WBC 0-3 Normal 0-3 [facility] Comment on above: Performed By: #### U A, UMIC #### [address] [address] RBC (U) [#/Vol] /uL Normal 0-2 [facility] Comment on above: Performed By: #### U A, UMIC #### [address] [address] UR SQUAM EPITH MODERATE Normal NONE-MANY [facility] Comment on above: Performed By: #### U A, UMIC #### [address] [address] CBC with AUTO DIFFon 024 BAS0 % 0.30 % Normal 0-2 [facility] Comment on above: Performed By: #### C BC #### [address] [address] Basophils (Bld) [#/Vol] 0.0 10*3/uL Normal 0-0.1 [facility] Comment on above: Performed By: #### C BC #### [facility] [address] [facility] [place] [address] Eosinophils (Bld) [#/Vol] 0.2 10*3/uL Normal 0.0-1.80 [facility] Comment on above: Performed By: #### C BC #### [facility] [address] [place] [address] Eosinophils/100 WBC (Bld) 1.7 % Normal 0-8 [facility] [facility] Comment on above: Performed By: #### C BC #### [address] [place] [address] GRAN # 6.5 K/uL Normal 2.2-9.1 [facility] Comment on above: Performed By: #### C BC #### [address] [place] [address] GRAN % 69.1 % Normal 42-80 [facility] Comment on above: Performed By: #### C BC #### [address] [place] [address] Hematocrit (Bld) [Volume fraction] 30.0 % Low 37.0-47.0 [facility] Comment on above: Performed By: #### C BC #### [address] [place] [address] Hemoglobin (Bld) [Mass/Vol] 10.0 g/dL Low 12.0-16.0 [facility] Comment on above: Performed By: #### C BC #### [address] [place] [address] Lymphocytes (Bld) [#/Vol] 2.3 10*3/uL Normal 1.0-4.0 [facility] Comment on above: Performed By: #### C BC #### [facility] [address] [facility] [place] [address] Lymphocytes/100 WBC (Bld) 24.5 % Normal 16-48 [facility] Comment on above: Performed By: #### C BC #### [address] [place] [address] MCV (RBC) [Entitic vol] 81.9 fL Normal 80-97 [facility] Comment on above: Performed By: #### C BC #### [facility] [address] [facility] [place] [address] MEAN CORPUSCULAR HGB 27.2 pg Normal 26.0-32.0 [facility] Comment on above: Performed By: #### C BC #### [facility] [address] [facility] [place] [address] MEAN CORPUSCULAR HGB CONC 33.2 g/dL Normal 31.0-36.0 [facility] Comment on above: Performed By: #### C BC #### [facility] [address] [facility] [place] [address] MONO DISTRIB WIDTH 15.47 Normal 0-20 [facility] Comment on above: Result Comment: For ED adult patients suspected of sepsis, MDW<=20.0 does not rule out sepsis or risk of sepsis Performed By: #### C BC #### [facility] [address] [facility] [place] [address] Monocytes (Bld) [#/Vol] 0.4 10*3/uL Normal 0.1-1.7 [facility] Comment on above: Performed By: #### C BC #### [facility] [address] [facility] [place] [address] Monocytes/100 WBC (Bld) 4.4 % Normal 3-9 [facility] Comment on above: Performed By: #### C BC #### [facility] [address] [facility] [place] [address] Platelet mean volume (Bld) [Entitic vol] 8.8 fL Normal 6.6-10.5 [facility] Comment on above: Performed By: #### C BC #### [facility] [address] [facility] [place] [address] Platelets (Bld) [#/Vol] 165 10*3/uL Normal 140-450 [facility] Comment on above: Performed By: #### C BC #### [facility] [address] [facility] [place] [address] RBC (Bld) [#/Vol] 3.67 10*6/uL Low 4.20-5.50 [facility] Comment on above: Performed By: #### C BC #### [facility] [address] [facility] [place] [address] RED CELL DISTRI WIDTH 17.2 % High 11.0-15.5 [facility] Comment on above: Performed By: #### C BC #### [facility] [address] [place] [address] WBC (Bld) [#/Vol] 9.4 10*3/uL Normal 4.0-11.0 [facility] Comment on above: Performed By: #### C BC #### [facility] [address] [place] [address] ED.PDOCon 10-14-2023 ED.PDOC BETSY MESA Female [id number] Attending provider: [facility] [id number] Juan Tidwell 1995 DOS: 10/14/23 Hx/Exam - History of Present [...] 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 Pelvic exam reveals [...] with Dr. Jacobo who is covering the [employer] service. Patient arrives after hours, ultrasound considered but unable to be ordered due to lack of coverage, Dr. Jacobo states this can be arranged as an outpatient. She recommends 800 mcg of intravaginal Cytotec with a repeat dose in 24 hours. She will [facility] the [facility]-up. Return indications [...] upon t (more content not included)... Normal [facility] Laboratory studies (set)on 0 10-14-2023 Appearance (U) CLEAR [facility] Bilirubin Ql (U) NEGATIVE [facility] Color (U) [facility] Glucose Ql (U) NEGATIVE [facility] HCG Qn (U) [facility] Ketones Ql (U) NEGATIVE [facility] Leukocyte esterase Test strip Ql (U) NEGATIVE [facility] Nitrite Ql (U) NEGATIVE [facility] pH (U) 8.0 [pH] 5.0-9.0 [facility] Protein Ql (U) NEGATIVE [facility] RBC (U) [#/Vol] High NEGATIVE [facility] RBC LM.HPF (Urine sed) [#/Area] 0-2 [facility] Specific gravity (U) [Rel density] 1.020 1.003-1.035 [facility] Urine Bacteria <1+ [facility] Urine Squamous Epithelial Cells NONE-MANY [facility] Urine WBC 0-3 [facility] Urobilinogen Ql (U) 0.2 E.U./dL <=1.0 [facility] Anion gap [Moles/Vol] 8.4 mmol/L Low 11-23 [facility] Basophils (Bld) [#/Vol] 0.0 10*3/uL 0-0.1 [facility] Basophils/100 WBC (Bld) 0.30 % 0-2 [facility] Calcium [Mass/Vol] 8.4 mg/dL Low 8.5-10.1 [facility] Chloride [Moles/Vol] 112 mmol/L High 98-107 [facility] CO2 [Moles/Vol] 26.0 mmol/L 21-32 [facility] Creatinine [Mass/Vol] 0.80 mg/dL 0.55-1.02 [facility] Eosinophils (Bld) [#/Vol] 0.2 10*3/uL 0.0-1.80 [facility] Eosinophils/100 WBC (Bld) 1.7 % 0-8 [facility] Erythrocyte distribution width (RBC) [Ratio] 17.2 % High 11.0-15.5 [facility] Estimated GFR () [facility] Comment on above: THE NORMAL LEVEL OF GFR VARIES ACCORDING TO AGE, SEX, AND BODY SIZE. A GFR LEVEL OF LESS THAN 60 ML/MIN REPRESENTS LOSS OF THE ADULT LEVEL OF NORMAL KIDNEY FUNCTION. GFR/1.73 sq M.predicted among non-blacks MDRD (S/P/Bld) [Vol rate/Area] [facility] Glucose [Mass/Vol] 153 mg/dL High 70-100 [facility] Granulocytes (Bld) [#/Vol] 6.5 10*3/uL 2.2-9.1 [facility] Granulocytes/100 WBC (Bld) 69.1 % 42-80 [facility] Hematocrit (Bld) [Volume fraction] 30.0 % Low 37.0-47.0 [facility] Hemoglobin (Bld) [Mass/Vol] 10.0 g/dL Low 12.0-16.0 [facility] Lymphocytes (Bld) [#/Vol] 2.3 10*3/uL 1.0-4.0 [facility] Lymphocytes/100 WBC (Bld) 24.5 % 16-48 [facility] MCH (RBC) [Entitic mass] 27.2 pg 26.0-32.0 [facility] MCHC (RBC) [Mass/Vol] 33.2 g/dL 31.0-36.0 [facility] MCV (RBC) [Entitic vol] 81.9 fL 80-97 [facility] Monocyte distribution width Auto (Bld) [Entitic vol] 15.47 0-20 [facility] Comment on above: For ED adult patient s suspected of sepsis, MDW<=20.0 does not rule out sepsis or risk of sepsis Monocytes (Bld) [#/Vol] 0.4 10*3/uL 0.1-1.7 [facility] Monocytes/100 WBC (Bld) 4.4 % 3-9 [facility] Platelet mean volume (Bld) [Entitic vol] 8.8 fL 6.6-10.5 [facility] Platelets (Bld) [#/Vol] 165 10*3/uL 140-450 [facility] Potassium [Moles/Vol] 3.8 mmol/L 3.5-5.1 [facility] RBC (Bld) [#/Vol] 3.67 10*6/uL Low 4.20-5.50 [facility] Sodium [Moles/Vol] 142 mmol/L 136-145 [facility] Urea nitrogen [Mass/Vol] 9.0 mg/dL 7-18 [facility] WBC (Bld) [#/Vol] 9.4 10*3/uL 4.0-11.0 [facility] URINALYSISon 10-14-2023 Appearance (U) Clear Normal CLEAR [facility] Comment on above: Order Comment: What Is Urine Source? [facility] [place] [place] What Is Urine Source? [facility] [place] Performed By: #### U A, UMIC #### [address] [address] Hemoglobin Ql (U) 3+ Abnormal NEGATIVE [facility] Comment on above: Order Comment: What Is Urine Source? [place] What Is Urine Source? [place] Performed By: #### U A, UMIC #### [address] [address] pH (U) 8.0 [pH] Normal 5.0-9.0 [facility] Comment on above: Order Comment: What Is Urine Source? [place] What Is Urine Source? [place] Performed By: #### U A, UMIC #### [address] [address] URINE BILIRUBIN - DIPSTICK Negative Normal NEGATIVE [facility] Comment on above: Order Comment: What Is Urine Source? [place] What Is Urine Source? [place] Performed By: #### U A, UMIC #### [address] [address] URINE GLUCOSE -DIPSTICK Negative Normal NEGATIVE [facility] Comment on above: Order Comment: What Is Urine Source? [place] What Is Urine Source? [place] Performed By: #### U A, UMIC #### [address] [address] URINE KETONE Negative Normal NEGATIVE [facility] Comment on above: Order Comment: What Is Urine Source? [place] What Is Urine Source? [place] Performed By: #### U A, UMIC #### [facility] [address] [place] [address] URINE LEUK ESTERASE Negative Normal NEGATIVE [facility] Comment on above: Order Comment: What Is Urine Source? [place] What Is Urine Source? [place] Performed By: #### U A, UMIC #### [address] [address] URINE NITRITE - DIPSTICK Negative Normal NEGATIVE [facility] Comment on above: Order Comment: What Is Urine Source? [place] What Is Urine Source? [place] Performed By: #### U A UMIC #### [address] [address] URINE PROTEIN - DIPSTICK Negative Normal [facility] Comment on above: Order Comment: What Is Urine Source? [place] What Is Urine Source? [place] Performed By: #### U A UMIC #### [address] [address] URINE SPEC GRAVITY, DIPSTICK 1.020 Normal 1.003-1.035 [facility] Comment on above: Order Comment: What Is Urine Source? [place] What Is Urine Source? [place] Performed By: #### U A, UMIC #### [address] [address] URINE UROBILINOGEN - DIPSTICK 0.2 E.U./dL Normal <=1.0 [facility] Comment on above: Order Comment: What Is Urine Source? [place] What Is Urine Source? [place] Performed By: #### U A, UMIC #### [address] [address] ACETONEon 08-11-2023 ACETONE Negative [facility] Comment on above: Performed By: #### M N, GEOVANNY, ACTN #### [address] [address] CBC with AUTO DIFFon 024 BAS0 % 0.90 % Normal 0-2 [facility] Comment on above: Performed By: #### C BC #### [address] [address] Basophils (Bld) [#/Vol] 0.1 10*3/uL Normal 0-0.1 [facility] Comment on above: Performed By: #### C BC #### [facility] [address] [facility] [place] [address] Eosinophils (Bld) [#/Vol] 0.2 10*3/uL Normal 0.0-1.80 [facility] Comment on above: Performed By: #### C BC #### [address] [place] [address] Eosinophils/100 WBC (Bld) 3.2 % Normal 0-8 [facility] Comment on above: Performed By: #### C BC #### [address] [place] [address] GRAN # 3.8 K/uL Normal 2.2-9.1 [facility] Comment on above: Performed By: #### C BC #### [address] [place] [address] GRAN % 51.1 % Normal 42-80 [facility] Comment on above: Performed By: #### C BC #### [address] [place] [address] Hematocrit (Bld) [Volume fraction] 31.4 % Low 37.0-47.0 [facility] Comment on above: Performed By: #### C BC #### [address] [place] [address] Hemoglobin (Bld) [Mass/Vol] 10.1 g/dL Low 12.0-16.0 [facility] Comment on above: Performed By: #### C BC #### [address] [place] [address] Lymphocytes (Bld) [#/Vol] 2.9 10*3/uL Normal 1.0-4.0 [facility] Comment on above: Performed By: #### C BC #### [facility] [address] [facility] [place] [address] Lymphocytes/100 WBC (Bld) 38.9 % Normal 16-48 [facility] Comment on above: Performed By: #### C BC #### [address] [place] [address] MCV (RBC) [Entitic vol] 80.0 fL Normal 80-97 [facility] Comment on above: Performed By: #### C BC #### [facility] [address] [facility] [place] [address] MEAN CORPUSCULAR HGB 25.8 pg Low 26.0-32.0 [facility] Comment on above: Performed By: #### C BC #### [facility] [address] [facility] [place] [address] MEAN CORPUSCULAR HGB CONC 32.3 g/dL Normal 31.0-36.0 [facility] Comment on above: Performed By: #### C BC #### [facility] [address] [facility] [place] [address] MONO DISTRIB WIDTH 15.35 Normal 0-20 [facility] Comment on above: Result Comment: For ED adult patients suspected of sepsis, MDW<=20.0 does not rule out sepsis or risk of sepsis Performed By: #### C BC #### [facility] [address] [facility] [place] [address] Monocytes (Bld) [#/Vol] 0.4 10*3/uL Normal 0.1-1.7 [facility] Comment on above: Performed By: #### C BC #### [facility] [address] [facility] [place] [address] Monocytes/100 WBC (Bld) 5.9 % Normal 3-9 [facility] Comment on above: Performed By: #### C BC #### [facility] [address] [facility] [place] [address] Platelet mean volume (Bld) [Entitic vol] 8.7 fL Normal 6.6-10.5 [facility] Comment on above: Performed By: #### C BC #### [facility] [address] [facility] [place] [address] Platelets (Bld) [#/Vol] 185 10*3/uL Normal 140-450 [facility] Comment on above: Performed By: #### C BC #### [facility] [address] [facility] [place] [address] RBC (Bld) [#/Vol] 3.93 10*6/uL Low 4.20-5.50 [facility] Comment on above: Performed By: #### C BC #### [facility] [address] [facility] [place] [address] RED CELL DISTRI WIDTH 17.5 % High 11.0-15.5 [facility] Comment on above: Performed By: #### C BC #### [facility] [address] [facility] [place] [address] WBC (Bld) [#/Vol] 7.4 10*3/uL Normal 4.0-11.0 [facility] Comment on above: Performed By: #### C BC #### [facility] [address] [facility] [place] [address] COMPREHENSIVE METABOLIC PANE Sarath 08-11-2023 Albumin [Mass/Vol] 3.6 g/dL Normal 3.4-5.0 [facility] Comment on above: Performed By: #### M GEOVANNY Johnson, ACTN #### [facility] [address] [facility] [place] [address] Albumin/Globulin [Mass ratio] 0.9 {ratio} Low 1.1-1.8 [facility] Comment on above: Performed By: #### M GEOVANNY Johnson, ACTN #### [facility] [address] [facility] [place] [address] ALP [Catalytic activity/Vol] 73 U/L Normal 45-117 [facility] Comment on above: Performed By: #### M GEOVANNY Johnson, ACTN #### [facility] [address] [facility] [place] [address] ALT [Catalytic activity/Vol] 17 U/L Normal 12-78 [facility] Comment on above: Performed By: #### M GEOVANNY Johnson, ACTN #### [facility] [address] [facility] [place] [address] Anion gap [Moles/Vol] 9.2 mmol/L Low 11-23 [facility] Comment on above: Performed By: #### M GEOVANNY Johnson, ACTN #### [facility] [address] [facility] [place] [address] AST [Catalytic activity/Vol] 9 U/L Low 15-37 [facility] Comment on above: Performed By: #### M GEOVANNY Johnson ACTN #### [facility] [address] [facility] [place] [address] Bilirubin [Mass/Vol] 0.3 mg/dL Normal 0.2-1.0 [facility] Comment on above: Performed By: #### M GEOVANNY Johnson, ACTN #### [facility] [address] [facility] [place] [address] Calcium [Mass/Vol] 8.4 mg/dL Low 8.5-10.1 [facility] Comment on above: Performed By: #### M GEOVANNY Johnson, ACTN #### [facility] [address] [facility] [place] [address] Chloride [Moles/Vol] 108 mmol/L High 98-107 [facility] Comment on above: Performed By: #### M Elizabeth TRO, ACTN #### [facility] [address] [facility] [place] [address] CO2 [Moles/Vol] 23.0 mmol/L Normal 21-32 [facility] Comment on above: Performed By: #### M Elizabeth TRO, ACTN #### [facility] [address] [facility] [place] [address] Creatinine [Mass/Vol] 0.70 mg/dL Normal 0.55-1.02 [facility] Comment on above: Performed By: #### M Elizabeth TRO, ACTN #### [address] [place] [address] GFR > 60.0 [facility] Comment on above: Performed By: #### GEOVANNY Soto, ACTN #### [address] [place] [address] GFR AM > 60.0 [facility] Comment on above: Result Comment: THE NORMAL LEVEL OF GFR VARIES ACCORDING TO AGE, SEX, AND BODY SIZE. A GFR LEVEL OF LESS THAN 60 ML/MIN REPRESENTS LOSS OF THE ADULT LEVEL OF NORMAL KIDNEY FUNCTION. Performed By: #### M Elizabeth TRO, ACTN #### [facility] [address] [facility] [place] [address] Globulin (S) [Mass/Vol] 3.8 g/dL Normal 2.5-4.6 [facility] Comment on above: Performed By: #### M Elizabeth TRO, ACTN #### [facility] [address] [facility] [place] [address] Glucose [Mass/Vol] 120 mg/dL High 70-100 [facility] Comment on above: Performed By: #### M Elizabeth TRO, ACTN #### [facility] [address] [facility] [place] [address] Potassium [Moles/Vol] 3.8 mmol/L Normal 3.5-5.1 [facility] Comment on above: Performed By: #### M N, TRO, ACTN #### [facility] [address] [place] [address] Protein [Mass/Vol] 7.3 g/dL Normal 6.0-8.3 [facility] Comment on above: Performed By: #### M GEOVANNY Johnson, ACTN #### [facility] [address] [place] [address] Sodium [Moles/Vol] 136 mmol/L Normal 136-145 [facility] Comment on above: Performed By: #### M GEOVANNY Johnson, ACTN #### [facility] [address] [place] [address] Urea nitrogen [Mass/Vol] 7.0 mg/dL Normal 7-18 [facility] Comment on above: Performed By: #### M GEOVANNY Johnson ACTN #### [facility] [address] [place] [address] ED.PDOCon 08-11-2023 ED.PDOC BETSY MESA Female [id number] Attending provider: [facility] [id number] Vern Henry 1995 28 DOS: 08/11/23 Hx/Exam [...] note is completed with assistance of the [employer] dictation program. While every attempt has been [...] BID #[id number] Transmission Status: Pending to [employer] #[id number] Referrals: Alex Avila [ACTIVE] - 2-3 Days Dictated By: Vern Henry MD Dictated Date/Time:08/11/23 1120 Electronically Signed Date/Time: 08/11/23 (more content not included)... Normal [facility] HCG URINEon 08-11-2023 Beta HCG ( test) Ql (U) Negative Normal [facility] Comment on above: Order Comment: What Is Urine Source? [place] Performed By: #### D SANA #### [address] [address] Laboratory studies (set)on 0 08-11-2023 Acetone Level [facility] Albumin [Mass/Vol] 3.6 g/dL 3.4-5.0 [facility] Albumin/Globulin [Mass ratio] 0.9 {ratio} Low 1.1-1.8 [facility] ALP [Catalytic activity/Vol] 73 U/L 45-117 [facility] ALT [Catalytic activity/Vol] 17 U/L 12-78 [facility] Anion gap [Moles/Vol] 9.2 mmol/L Low 11-23 [facility] Appearance (U) CLEAR [facility] AST [Catalytic activity/Vol] 9 U/L Low 15-37 [facility] Basophils (Bld) [#/Vol] 0.1 10*3/uL 0-0.1 [facility] Basophils/100 WBC (Bld) 0.90 % 0-2 [facility] Bilirubin [Mass/Vol] 0.3 mg/dL 0.2-1.0 [facility] Bilirubin Ql (U) NEGATIVE [facility] Calcium [Mass/Vol] 8.4 mg/dL Low 8.5-10.1 [facility] Chloride [Moles/Vol] 108 mmol/L High 98-107 [facility] CO2 [Moles/Vol] 23.0 mmol/L 21-32 [facility] Color (U) [facility] Creatinine [Mass/Vol] 0.70 mg/dL 0.55-1.02 [facility] Eosinophils (Bld) [#/Vol] 0.2 10*3/uL 0.0-1.80 [facility] Eosinophils/100 WBC (Bld) 3.2 % 0-8 [facility] Erythrocyte distribution width (RBC) [Ratio] 17.5 % High 11.0-15.5 [facility] Estimated GFR () [facility] Comment on above: THE NORMAL LEVEL OF GFR VARIES ACCORDING TO AGE, SEX, AND BODY SIZE. A GFR LEVEL OF LESS THAN 60 ML/MIN REPRESENTS LOSS OF THE ADULT LEVEL OF NORMAL KIDNEY FUNCTION. GFR/1.73 sq M.predicted among non-blacks MDRD (S/P/Bld) [Vol rate/Area] [facility] Globulin (S) [Mass/Vol] 3.8 g/dL 2.5-4.6 [facility] Glucose [Mass/Vol] 120 mg/dL High 70-100 [facility] Glucose Ql (U) NEGATIVE [facility] Granulocytes (Bld) [#/Vol] 3.8 10*3/uL 2.2-9.1 [facility] Granulocytes/100 WBC (Bld) 51.1 % 42-80 [facility] HCG Qn (U) [facility] Hematocrit (Bld) [Volume fraction] 31.4 % Low 37.0-47.0 [facility] Hemoglobin (Bld) [Mass/Vol] 10.1 g/dL Low 12.0-16.0 [facility] Ketones Ql (U) NEGATIVE [facility] Leukocyte esterase Test strip Ql (U) High NEGATIVE [facility] Lymphocytes (Bld) [#/Vol] 2.9 10*3/uL 1.0-4.0 [facility] Lymphocytes/100 WBC (Bld) 38.9 % 16-48 [facility] MCH (RBC) [Entitic mass] 25.8 pg Low 26.0-32.0 [facility] MCHC (RBC) [Mass/Vol] 32.3 g/dL 31.0-36.0 [facility] MCV (RBC) [Entitic vol] 80.0 fL 80-97 [facility] Monocyte distribution width Auto (Bld) [Entitic vol] 15.35 0-20 [facility] Comment on above: For ED adult patient s suspected of sepsis, MDW<=20.0 does not rule out sepsis or risk of sepsis Monocytes (Bld) [#/Vol] 0.4 10*3/uL 0.1-1.7 [facility] Monocytes/100 WBC (Bld) 5.9 % 3-9 [facility] Nitrite Ql (U) NEGATIVE [facility] pH (U) 6.0 [pH] 5.0-9.0 [facility] Platelet mean volume (Bld) [Entitic vol] 8.7 fL 6.6-10.5 [facility] Platelets (Bld) [#/Vol] 185 10*3/uL 140-450 [facility] Potassium [Moles/Vol] 3.8 mmol/L 3.5-5.1 [facility] Protein [Mass/Vol] 7.3 g/dL 6.0-8.3 [facility] Protein Ql (U) NEGATIVE [facility] RBC (Bld) [#/Vol] 3.93 10*6/uL Low 4.20-5.50 [facility] RBC (U) [#/Vol] NEGATIVE [facility] RBC LM.HPF (Urine sed) [#/Area] 0-2 [facility] Sodium [Moles/Vol] 136 mmol/L 136-145 [facility] Specific gravity (U) [Rel density] 1.015 1.003-1.035 [facility] Troponin 3.4 pg/mL 0-53.7 [facility] Comment on above: Troponin Reference R flip: Male: 0-78.5 pg/mL (ng/L) Female: 0-53.7 pg/mL (ng/L) Note: The new high sensitivity Troponin units are in pg/mL (ng/L) Urea nitrogen [Mass/Vol] 7.0 mg/dL 7-18 [facility] Urine Bacteria <1+ [facility] Urine Squamous Epithelial Cells NONE-MANY [facility] Urine WBC 0-3 [facility] Urobilinogen Ql (U) 0.2 E.U./dL <=1.0 [facility] WBC (Bld) [#/Vol] 7.4 10*3/uL 4.0-11.0 [facility] TROPONINon 08-11-2023 TROPONIN 3.4 pg/mL Normal 0-53.7 [facility] Comment on above: Result Comment: Trop onin Reference Range: Male: 0-78.5 pg/mL (ng/L) Female: 0-53.7 pg/mL (ng/L) Note: The new high sensitivity Troponin units are in pg/mL (ng/L) Performed By: #### M N, TRO, ACTN #### [address] [address] URINALYSIS W/ C S IF INDICAT EDon 08-11-2023 Appearance (U) Clear Normal CLEAR [facility] Comment on above: Order Comment: What Is Urine Source? Clean Catch Mid StreamWhat Is Urine Source? Clean Catch [place] Performed By: #### D SANA #### [address] [address] Color (U) Lt. Yellow Normal [facility] Comment on above: Order Comment: What Is Urine Source? Clean Catch Mid StreamWhat Is Urine Source? [place] Performed By: #### D SANA #### [address] [address] Hemoglobin Ql (U) Negative Normal NEGATIVE [facility] Comment on above: Order Comment: What Is Urine Source? Clean Catch Mid StreamWhat Is Urine Source? Clean Catch [place] Performed By: #### D SANA #### [address] [address] pH (U) 6.0 [pH] Normal 5.0-9.0 [facility] Comment on above: Order Comment: What Is Urine Source? Clean Catch Mid StreamWhat Is Urine Source? Clean Catch [place] Performed By: #### D SANA #### [address] [address] URINE BILIRUBIN - DIPSTICK Negative Normal NEGATIVE [facility] Comment on above: Order Comment: What Is Urine Source? Clean Catch Mid StreamWhat Is Urine Source? Clean [place] Performed By: #### D SANA #### [address] [address] URINE GLUCOSE - DIPSTICK Negative Normal NEGATIVE [facility] Comment on above: Order Comment: What Is Urine Source? Clean Catch Mid StreamWhat Is Urine Source? Clean [place] Performed By: #### D SANA #### [address] [address] URINE KETONE Negative Normal NEGATIVE [facility] Comment on above: Order Comment: What Is Urine Source? Clean Catch Mid StreamWhat Is Urine Source? [place] Performed By: #### D SANA #### [address] [address] URINE LEUK ESTERASE 1+ Abnormal NEGATIVE [facility] Comment on above: Order Comment: What Is Urine Source? Clean Catch Mid StreamWhat Is Urine Source? Clean [place] Performed By: #### D SANA #### [address] [address] URINE NITRITE - DIPSTICK Negative Normal NEGATIVE [facility] Comment on above: Order Comment: What Is Urine Source? Clean Catch Mid StreamWhat Is Urine Source? Clean [place]atch [place] Performed By: #### D SANA #### [address] [address] URINE PROTEIN - DIPSTICK Negative Normal NEGATIVE [facility] Comment on above: Order Comment: What Is Urine Source? Clean Catch Mid StreamWhat Is Urine Source? Clean [place]atch [place] Performed By: #### D SANA #### [facility] [address] [facility] [place] [address] URINE SPEC GRAVITY, DIPSTICK 1.015 Normal 1.003-1.035 [facility] Comment on above: Order Comment: What Is Urine Source? Clean Catch Mid StreamWhat Is Urine Source? Clean [place] Performed By: #### D SANA #### [facility] [address] [place] [address] URINE UROBILINOGEN - DIPSTICK 0.2 E.U./dL Normal <=1.0 [facility] Comment on above: Order Comment: What Is Urine Source? Clean Catch Mid StreamWhat Is Urine Source? Clean Catch [place] Performed By: #### D SANA #### [facility] [address] [place] [address] URINE MICROSCOPICon 08-11-19 24 UR SQUAM EPITH MANY Normal NONE-MANY [facility] Comment on above: Performed By: #### D SANA #### [address] [address] URINE BACTERIA FEW Normal <1+ [facility] Comment on above: Performed By: #### D SANA #### [address] [address] URINE RBC 0-2 Normal 0-2 [facility] Comment on above: Performed By: #### D SANA #### [address] [address] URINE WBC 3-5 Normal 0-3 [facility] Comment on above: Performed By: #### D SANA #### [address] [address] ED.PDOCon 05-12-2023 ED.PDOC BETSY MESA Female [id number] Attending provider: [facility] [id number] Jeremy Lim 1995 28 DOS: 05/12/23 Hx/Exam [...] normal strength, no pronator drift, speech clear/fluent, 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 yellow Urine Appearance Sl cloudy H Urine pH 6.0 Ur Specific [place] 1.025 Urine Protein Negative Urine Ketones Negative [...] note is completed with assistance of the [employer] dictation program. While every attempt has been made to dictate accurately, the system does make errors in transcribing the precise spoken word intended. 05/12/23 03:25 05/14/23 05:38 EKG - EKG EKG Interpretation: Preliminary ED Interpretation (Sinus rhythm, rate 96, MA 196, QRS 84, QT 350, normal axis. Unchanged compared to 02/13/2023.) Discharge Screen - Discharge Discharge Problem: Headache Disposition: HOME/SELF CARE Condition: Stable Instructions: DI for Headache Prescriptions: Ibuprofen 800 mg PO TID PRN 10 Days #30 tab PRN Reason: Transmission Status: Received by [facility] #[id number] Ondansetron [Zofran Odt] 4 mg PO Q6HR PRN 5 Days #20 tab PRN Reason: Transmission Status: Received by [facility] #[id number] Referrals: Call,On [Primary Care Provider] - Celso Mitchell [ACTIVE] - 3-5 Days (as needed) Dictated By: Jeremy Lim MD Dictated Date/Time:05/12/23210 Electronically Signed Date/Time: 05/14/23 0549 [facility] HEAD W/O CONTRASTon 05-12-20 HEAD W/O CONTRAST BETSY MESA Female [id number] Ordering physician: Jermey Lim LOC:ER [id number] Attending physician: 1995 28 DO S: 05/12/23 Acc#: [id number] Exam/Proc: HEAD W/O CONTRAST Dept: COMPUTED TOMOGRAPHY [...] shift. No abnormal extra-axial fluid collection. The steward-white differentiation is maintained without evidence of an [...] By Julio Moura MD 05/12/2023 3:01:30 AM EST Workstation ID : [id number] REPORT SIGNATURE ON FILE Electronically Signed Date/Time: 05/12/23 0301 Dictated Date/time: 05/12/23 0258 CC: Normal [facility] Laboratory studies (set)on Appearance (U) High CLEAR [facility] Bilirubin Ql (U) NEGATIVE [facility] Color (U) [facility] Glucose Ql (U) NEGATIVE [facility] Hemoglobin Ql (U) NEGATIVE [facility] Ketones Ql (U) NEGATIVE [facility] Leukocyte esterase Test strip Ql (U) High NEGATIVE [facility] Mucus Ql (Urine sed) <1+ [facility] Nitrite Ql (U) NEGATIVE [facility] pH (U) 6.0 [pH] 5.0-9.0 [facility] Protein Ql (U) NEGATIVE [facility] RBC LM.HPF (Urine sed) [#/Area] 0-2 [facility] Specific gravity (U) [Rel density] 1.025 1.003-1.035 [facility] Urine Bacteria <1+ [facility] Comment on above: Culture Pending Urine Squamous Epithelial Cells NONE-MANY [facility] Urine WBC 0-3 [facility] Comment on above: Culture Pending Urobilinogen Ql (U) 0.2 E.U./dL <=1.0 [facility] W/ C S IF INDICAT EDon 05-12-2023 Appearance (U) Sl Cloudy Abnormal CLEAR [facility] Comment on above: Order Comment: What Is Urine Source? RandomWhat Is Urine Source? Random Performed By: #### D SANA #### [place] [address] Other Comment: Cultu re PendingCulture Pending Color (U) Lt. Yellow Normal [facility] Comment on above: Order Comment: What Is Urine Source? RandomWhat Is Urine Source? Random Performed By: #### D SANA #### [address] [address] Other Comment: Cultu re PendingCulture Pending Hemoglobin Ql (U) Negative Normal NEGATIVE [facility] Comment on above: Order Comment: What Is Urine Source? RandomWhat Is Urine Source? Random Performed By: #### D SANA #### [address] [address] Other Comment: Cultu re PendingCulture Pending pH (U) 6.0 [pH] Normal 5.0-9.0 [facility] Comment on above: Order Comment: What Is Urine Source? RandomWhat Is Urine Source? Random Performed By: #### D SANA #### [place] [address] Other Comment: Cultu re PendingCulture Pending URINE BILIRUBIN - DIPSTICK Negative Normal NEGATIVE [facility] Comment on above: Order Comment: What Is Urine Source? RandomWhat Is Urine Source? Random Performed By: #### D SANA #### [address] [address] Other Comment: Cultu re PendingCulture Pending URINE GLUCOSE - DIPSTICK Negative Normal NEGATIVE [facility] Comment on above: Order Comment: What Is Urine Source? RandomWhat Is Urine Source? Random Performed By: #### D SANA #### [address] [address] Other Comment: Cultu re PendingCulture Pending URINE KETONE Negative Normal NEGATIVE [facility] Comment on above: Order Comment: What Is Urine Source? RandomWhat Is Urine Source? Random Performed By: #### D SANA #### [address] [address] Other Comment: Cultu re PendingCulture Pending URINE LEUK ESTERASE 3+ Abnormal NEGATIVE [facility] Comment on above: Order Comment: What Is Urine Source? RandomWhat Is Urine Source? Random Performed By: #### D SANA #### [address] [address] Other Comment: Cultu re PendingCulture Pending URINE NITRITE - DIPSTICK Negative Normal NEGATIVE [facility] Comment on above: Order Comment: What Is Urine Source? RandomWhat Is Urine Source? Random Performed By: #### D SANA #### [address] [address] Other Comment: Cultu re PendingCulture Pending URINE PROTEIN - DIPSTICK Negative Normal NEGATIVE [facility] Comment on above: Order Comment: What Is Urine Source? RandomWhat Is Urine Source? Random Performed By: #### D SANA #### [address] [address] Other Comment: Cultu re PendingCulture Pending URINE SPEC GRAVITY, DIPSTICK 1.025 Normal 1.003-1.035 [facility] Comment on above: Order Comment: What Is Urine Source? RandomWhat Is Urine Source? Random Performed By: #### D SANA #### [address] [address] Other Comment: Cultu re PendingCulture Pending URINE UROBILINOGEN - DIPSTICK 0.2 E.U./dL Normal <=1.0 [facility] Comment on above: Order Comment: What Is Urine Source? RandomWhat Is Urine Source? Random Performed By: #### D SANA #### [address] [address] Other Comment: Cultu re PendingCulture Pending URINE MICROSCOPICon 05-12-20 23 Mucus Ql (Urine sed) SL AMT Normal <1+ [facility] Comment on above: Performed By: #### D SANA #### [address] [address] Other Comment: Cultu re PendingCulture Pending UR SQUAM EPITH MANY Normal NONE-MANY [facility] Comment on above: Performed By: #### D SANA #### [address] [address] Other Comment: Cultu re PendingCulture Pending URINE BACTERIA 1+ Normal <1+ [facility] Comment on above: Performed By: #### D SANA #### [address] [address] Other Comment: Cultu re PendingCulture Pending URINE RBC NONE SEEN Normal 0-2 [facility] Comment on above: Performed By: #### D SANA #### [address] [address] Other Comment: Cultu re PendingCulture Pending URINE WBC 30-40 Normal 0-3 [facility] Comment on above: Performed By: #### D SANA #### [address] [address] Other Comment: Cultu re PendingCulture Pending BASIC METABOLIC PANELon 07- Anion gap [Moles/Vol] 10.0 mmol/L Low 11-23 [facility] Comment on above: Performed By: #### B MP #### [address] [address] Calcium [Mass/Vol] 8.5 mg/dL Normal 8.5-10.1 [facility] Comment on above: Performed By: #### B MP #### [address] [address] Chloride [Moles/Vol] 111 mmol/L High 98-107 [facility] Comment on above: Performed By: #### B MP #### [facility] [address] [facility] [place] [address] CO2 [Moles/Vol] 24.0 mmol/L Normal 21-32 [facility] Comment on above: Performed By: #### B MP #### [facility] [address] [facility] [place] [address] Creatinine [Mass/Vol] 0.70 mg/dL Normal 0.55-1.02 [facility] Comment on above: Performed By: #### B MP #### [address] [place] [address] GFR > 60.0 [facility] Comment on above: Performed By: #### B MP #### [facility] [address] [facility] [place] [address] GFR AM > 60.0 [facility] Comment on above: Result Comment: THE NORMAL LEVEL OF GFR VARIES ACCORDING TO AGE, SEX, AND BODY SIZE. A GFR LEVEL OF LESS THAN 60 ML/MIN REPRESENTS LOSS OF THE ADULT LEVEL OF NORMAL KIDNEY FUNCTION. Performed By: #### B MP #### [address] [place] [address] Glucose [Mass/Vol] 120 mg/dL High 70-100 [facility] Comment on above: Performed By: #### B MP #### [address] [place] [address] Potassium [Moles/Vol] 3.6 mmol/L Normal 3.5-5.1 [facility] Comment on above: Performed By: #### B MP #### [address] [place] [address] Sodium [Moles/Vol] 142 mmol/L Normal 136-145 [facility] Comment on above: Performed By: #### B MP #### [facility] [address] [facility] [place] [address] Urea nitrogen [Mass/Vol] 10.0 mg/dL Normal 7-18 [facility] Comment on above: Performed By: #### B MP #### [facility] [address] [facility] [place] [address] CBC with AUTO DIFFon 18-2 023 BAS0 % 0.40 % Normal 0-2 [facility] Comment on above: Performed By: #### C BC #### [facility] [address] [facility] [place] [address] Basophils (Bld) [#/Vol] 0.0 10*3/uL Normal 0-0.1 [facility] Comment on above: Performed By: #### C BC #### [facility] [address] [facility] [place] [address] Eosinophils (Bld) [#/Vol] 0.2 10*3/uL Normal 0.0-1.80 [facility] Comment on above: Performed By: #### C BC #### [facility] [address] [place] [address] Eosinophils/100 WBC (Bld) 2.8 % Normal 0-8 [facility] Comment on above: Performed By: #### C BC #### [address] [place] [address] GRAN # 3.9 K/uL Normal 2.2-9.1 [facility] Comment on above: Performed By: #### C BC #### [address] [place] [address] GRAN % 53.4 % Normal 42-80 [facility] Comment on above: Performed By: #### C BC #### [address] [place] [address] Hematocrit (Bld) [Volume fraction] 32.7 % Low 37.0-47.0 [facility] Comment on above: Performed By: #### C BC #### [address] [place] [address] Hemoglobin (Bld) [Mass/Vol] 10.8 g/dL Low 12.0-16.0 [facility] Comment on above: Performed By: #### C BC #### [facility] [address] [facility] [place] [address] Lymphocytes (Bld) [#/Vol] 2.6 10*3/uL Normal 1.0-4.0 [facility] Comment on above: Performed By: #### C BC #### [facility] [address] [facility] [place] [address] Lymphocytes/100 WBC (Bld) 36.3 % Normal 16-48 [facility] Comment on above: Performed By: #### C BC #### [address] [place] [address] MCV (RBC) [Entitic vol] 79.5 fL Low 80-97 [facility] Comment on above: Performed By: #### C BC #### [facility] [address] [facility] [place] [address] MEAN CORPUSCULAR HGB 26.1 pg Normal 26.0-32.0 [facility] Comment on above: Performed By: #### C BC #### [facility] [address] [facility] [place] [address] MEAN CORPUSCULAR HGB CONC 32.9 g/dL Normal 31.0-36.0 [facility] Comment on above: Performed By: #### C BC #### [facility] [address] [facility] [place] [address] MONO DISTRIB WIDTH 15.75 Normal 0-20 [facility] Comment on above: Result Comment: For ED adult patients suspected of sepsis, MDW<=20.0 does not rule out sepsis or risk of sepsis Performed By: #### C BC #### [facility] [address] [facility] [place] [address] Monocytes (Bld) [#/Vol] 0.5 10*3/uL Normal 0.1-1.7 [facility] Comment on above: Performed By: #### C BC #### [facility] [address] [facility] [place] [address] Monocytes/100 WBC (Bld) 7.1 % Normal 3-9 [facility] Comment on above: Performed By: #### C BC #### [facility] [address] [facility] [place] [address] Platelet mean volume (Bld) [Entitic vol] 9.8 fL Normal 6.6-10.5 [facility] Comment on above: Performed By: #### C BC #### [facility] [address] [facility] [place] [address] Platelets (Bld) [#/Vol] 165 10*3/uL Normal 140-450 [facility] Comment on above: Performed By: #### C BC #### [facility] [address] [facility] [place] [address] RBC (Bld) [#/Vol] 4.12 10*6/uL Low 4.20-5.50 [facility] Comment on above: Performed By: #### C BC #### [facility] [address] [facility] [place] [address] RED CELL DISTRI WIDTH 17.7 % High 11.0-15.5 [facility] Comment on above: Performed By: #### C BC #### [facility] [address] [place] [address] WBC (Bld) [#/Vol] 7.3 10*3/uL Normal 4.0-11.0 [facility] Comment on above: Performed By: #### C BC #### [facility] [address] [facility] [place] [address] CHEST-2 VIEWon 02-13-2023 CHEST-2 VIEW BETSY MESA Female [id number] Ordering physician: Leandra Keller LOC:ER [id number] Attending physician: 1995 DO S: 02/13/23 Acc#: [id number] Exam/Proc: CHEST-2 VIEW Dept: RADIOLOGY EXAMINATION: Exam [...] 02/13/2023 6:55:15 AM EST Workstation ID : [id number] REPORT SIGNATURE ON FILE Electronically Signed Date/Time: 02/13/23654 Dictated Date/time: 02/13/23651 CC: Normal [facility] D-DIMERon 02-13-2023 D-DIMER 0.48 mg/L FEU Normal 0.0-0.59 [facility] Comment on above: Result Comment: The cut-off [...] therapy. Performed By: #### D SANA #### [place] [address] [address] ED.PDOCon 02-13-2023 ED.PDOC BETSY MESA Female [id number] Attending provider: [facility] [id number] Leandra Keller 1995 27 DOS: 02/13/23 Case [...] Date/Time:02/13/23 0549 Electronically Signed Date/Time: 02/13/23 0714 [facility] LOWER EXT DVT RIGHTon 2022 LOWER EXT DVT RIGHT BETSY MESA Female [id number] Ordering physician: Leandra Keller LOC:ER [id number] Attending physician: 1995 DO S: 02/13/23 Acc#: [id number] Exam/Proc: LOWER EXT DVT RIGHT Dept: ULTRASOUND EXAMINATION: Exam Title:DUPLEX ULTRASOUND OF THE RIGHT LOWER EXTREMITY FOR DVT Completed Time: 02/13/2023 7:47 am Procedure Description:DVT LOWER RIGHT COMPARISON: September 25, 2022 upper extremity DVT exam HISTORY: ORDERING SYSTEM PROVIDED HISTORY: TECHNOLOGIST PROVIDED HISTORY: Reason for Exam: pain TECHNIQUE: Duplex ultrasound using B-mode/steward scaled imaging and Doppler spectral analysis and [...] 02/13/2023 7:50:07 AM EST Workstation ID : [id number] REPORT SIGNATURE ON FILE Electronically Signed Date/Time: 02/13/23 0750 Dictated Date/time: 02/13/23 0749 CC: Normal [facility] Laboratory studies (set)on 0 02-13-2023 Anion gap [Moles/Vol] 10.0 mmol/L [facility] Basophils (Bld) [#/Vol] 0.0 10*3/uL 0-0.1 [facility] Basophils/100 WBC (Bld) 0.40 % 0-2 [facility] Calcium [Mass/Vol] 8.5 mg/dL 8.5-10.1 [facility] Chloride [Moles/Vol] 111 mmol/L High 98-107 [facility] CO2 [Moles/Vol] 24.0 mmol/L [facility] Creatinine [Mass/Vol] 0.70 mg/dL 0.55-1.02 [facility] D-Dimer, Quantitative 0.48 mg/L FEU 0.0-0.59 [facility] Comment on above: The cut-off level fo [...] therapy. Eosinophils (Bld) [#/Vol] 0.2 10*3/uL 0.0-1.80 [facility] Eosinophils/100 WBC (Bld) 2.8 % 0-8 [facility] Erythrocyte distribution width (RBC) [Ratio] 17.7 % High 11.0-15.5 [facility] Estimated GFR () [facility] Comment on above: THE NORMAL LEVEL OF GFR VARIES ACCORDING TO AGE, SEX, AND BODY SIZE. A GFR LEVEL OF LESS THAN 60 ML/MIN REPRESENTS LOSS OF THE ADULT LEVEL OF NORMAL KIDNEY FUNCTION. GFR/1.73 sq M.predicted among non-blacks MDRD (S/P/Bld) [Vol rate/Area] [facility] Glucose [Mass/Vol] 120 mg/dL High 70-100 [facility] Granulocytes (Bld) [#/Vol] 3.9 10*3/uL 2.2-9.1 [facility] Granulocytes/100 WBC (Bld) 53.4 % 42-80 [facility] Hematocrit (Bld) [Volume fraction] 32.7 % Low 37.0-47.0 [facility] Hemoglobin (Bld) [Mass/Vol] 10.8 g/dL Low 12.0-16.0 [facility] Lymphocytes (Bld) [#/Vol] 2.6 10*3/uL 1.0-4.0 [facility] Lymphocytes/100 WBC (Bld) 36.3 % 16-48 [facility] MCH (RBC) [Entitic mass] 26.1 pg 26.0-32.0 [facility] MCHC (RBC) [Mass/Vol] 32.9 g/dL 31.0-36.0 [facility] MCV (RBC) [Entitic vol] 79.5 fL Low 80-97 [facility] Monocyte distribution width Auto (Bld) [Entitic vol] 15.75 0-20 [facility] Comment on above: For ED adult patient s suspected of sepsis, MDW<=20.0 does not rule out sepsis or risk of sepsis Monocytes (Bld) [#/Vol] 0.5 10*3/uL 0.1-1.7 [facility] Monocytes/100 WBC (Bld) 7.1 % 3-9 [facility] Platelet mean volume (Bld) [Entitic vol] 9.8 fL 6.6-10.5 [facility] [facility] Platelets (Bld) [#/Vol] 165 10*3/uL 140-450 [facility] Potassium [Moles/Vol] 3.6 mmol/L 3.5-5.1 [facility] RBC (Bld) [#/Vol] 4.12 10*6/uL Low 4.20-5.50 [facility] Sodium [Moles/Vol] 142 mmol/L 136-145 [facility] Urea nitrogen [Mass/Vol] 10.0 mg/dL 7-18 [facility] WBC (Bld) [#/Vol] 7.3 10*3/uL 4.0-11.0 [facility] CT CHEST PULMONARY EMBOLISM W CONTRASTon [...] Beau Nunn MD 09/26/22 Final result Normal [facility] BMPon 09-26-2022 Anion gap [Moles/Vol] 11 mmol/L 9 - 17 mmol/L [facility] [employer] Calcium [Mass/Vol] 9.6 mg/dL 8.6 - 10. 4 mg/dL [facility] [employer] Chloride [Moles/Vol] 106 mmol/L 98 - 10 7 mmol/L [facility] [employer] CO2 [Moles/Vol] 22 mmol/L 20 - 31 mmol/L [facility] [employer] Creatinine [Mass/Vol] 0.59 mg/dL 0.50 - 0.90 mg/dL [facility] [employer] GFR/1.73 sq M.predicted MDRD (S/P/Bld) [Vol rate/Area] - PINF [facility] Comment on above: These results are [...] 124 mg/dL High 70 - 99 mg/dL [facility] Interpretation and review of laboratory results Abnormal [facility] [employer] Potassium [Moles/Vol] 3.6 mmol/L Low 3.7 - 5.3 mmol/L [facility] Sodium [Moles/Vol] 139 mmol/L 135 - 144 mmol/L [facility] [employer] Urea nitrogen [Mass/Vol] 7 mg/dL 6 - 20 mg/dL [facility] [employer] Basic Metabolic Profon 09-26 Anion gap [Moles/Vol] 11 mmol/L Normal 9-17 [facility] Comment on above: Performed By: #### D CHAPINCITO, BMP, HCG, CDP, TSH, MG, TROPI #### [facility] [employer] [address] [place] [id number] [employer]: Chaitanya Mtz MD Calcium [Mass/Vol] 9.6 mg/dL Normal 8.6-10.4 [facility] Comment on above: Performed By: #### D CHAPINCITO, BMP, HCG, CDP, TSH, MG, TROPI #### [facility] [employer] [address] [place] [phone] [employer]: Chaitanya Mtz MD Chloride [Moles/Vol] 106 mmol/L Normal 98-107 [facility] Comment on above: Performed By: #### D CHAPINCITO, BMP, HCG, CDP, TSH, MG, TROPI #### [facility] [employer] [address] [place] [address] [phone] [employer]: Chaitanya Mtz MD CO2 [Moles/Vol] 22 mmol/L Normal 20-31 [facility] Comment on above: Performed By: #### D CHAPINCITO, BMP, HCG, CDP, TSH, MG, TROPI #### [facility] [employer] [address] [place] [id number] [employer]: Chaitanya Mtz MD Creatinine [Mass/Vol] 0.59 mg/dL Normal 0.50-0.90 [facility] Comment on above: Performed By: #### D CHAPINCITO, BMP, HCG, CDP, TSH, MG, TROPI #### [facility] [employer] [address] [place] [phone] [employer]: Chaitanya Mtz MD GFR/1.73 sq M.predicted among non-blacks MDRD (S/P/Bld) [Vol rate/Area] mL/min/{1.73_m2} Normal >60 [facility] Comment on above: Result Comment: These results [...] renal tubular secretion. Performed By: #### D CHAPINCITO, BMP, HCG, CDP, TSH, MG, TROPI #### [facility] [employer] [address] [place] [id number] [employer]: Chaitanya Mtz MD Glucose [Mass/Vol] 124 mg/dL High 70-99 [facility] Comment on above: Performed By: #### D CHAPINCITO, BMP, HCG, CDP, TSH, MG, TROPI #### [facility] [address] [place] [phone] [employer]: Chaitanya Mtz MD Potassium [Moles/Vol] 3.6 mmol/L Low 3.7-5.3 [facility] Comment on above: Performed By: #### D CHAPINCITO, BMP, HCG, CDP, TSH, MG, TROPI #### [facility] [address] [place] [id number] [employer]: Chaitanya Mtz MD Sodium [Moles/Vol] 139 mmol/L Normal 135-144 [facility] Comment on above: Performed By: #### D CHAPINCITO, BMP, HCG, CDP, TSH, MG, TROPI #### [facility] [address] [place] [id number] [employer]: Chaitanya Mtz MD Urea nitrogen [Mass/Vol] 7 mg/dL Normal 6-20 [facility] Comment on above: Performed By: #### D CHAPINCITO, BMP, HCG, CDP, TSH, MG, TROPI #### [facility] [address] [place] [phone] [employer]: Chaitanya Mtz MD CBC with Auto Differentialon 09-26-2022 Absolute Eos # 0.09 [facility] Absolute Immature Granulocyte [facility] Absolute Lymph # 2.78 [facility] Absolute Dillon # 0.38 [facility] Basophils (Bld) [#/Vol] 0.03 10*3/uL [facility] Interpretation and review of laboratory results Abnormal [facility] NRBC Automated 0.0 0.0 per 100 WBC [facility] Platelet distribution width (Bld) [Ratio] 14.6 % High 11.8 - 14.4 % [facility] RBC (Bld) [#/Vol] ANISOCYTOSIS PRESENT [facility] Segmented neutrophils/100 WBC (Bld) 49 % 36 - 65 % [facility] Segs Absolute 3.16 [facility] CBC with Diffon 09-26-2022 Abs. Basophil 0.03 k/uL Normal 0.00-0.20 [facility] Comment on above: Performed By: #### D CHAPINCITO, BMP, HCG, CDP, TSH, MG, TROPI #### [facility] [employer] [address] [place] [address] [employer]: Chaitanya Mtz MD Abs.Imm.Granulocyte <0.03 Normal 0.00-0.30 [facility] Comment on above: Performed By: #### D CHAPINCITO, BMP, HCG, CDP, TSH, MG, TROPI #### [facility] [address] [place] [address] [employer]: Chaitanya Mtz MD Abs.Neutrophil (Seg) 3.16 k/uL Normal 1.50-8.10 [facility] Comment on above: Performed By: #### D CHAPINCITO, BMP, HCG, CDP, TSH, MG, TROPI #### [facility] [employer] [address] [place] [address] [employer]: Chaitanya Mtz MD Eosinophils (Bld) [#/Vol] 0.09 10*3/uL Normal 0.00-0.44 [facility] Comment on above: Performed By: #### D CHAPINCITO, BMP, HCG, CDP, TSH, MG, TROPI #### [facility] [address] [place] [address] [id number] [employer]: Chaitanya Mtz MD Erythrocyte distribution width (RBC) [Ratio] 14.6 % High 11.8-14.4 [facility] Comment on above: Performed By: #### D CHAPINCITO, BMP, HCG, CDP, TSH, MG, TROPI #### [facility] [address] [place] [id number] [employer]: Chaitanya Mtz MD Lymphocytes (Bld) [#/Vol] 2.78 10*3/uL Normal 1.10-3.70 [facility] Comment on above: Performed By: #### D CHAPINCITO, BMP, HCG, CDP, TSH, MG, TROPI #### [address] [phone] [employer]: Chaitanya Mtz MD Monocytes (Bld) [#/Vol] 0.38 10*3/uL Normal 0.10-1.20 [facility] Comment on above: Performed By: #### D CHAPINCITO, BMP, HCG, CDP, TSH, MG, TROPI #### [facility] [address] [place] [address] [phone] [employer]: Chaitanya Mtz MD Neutrophil (Seg) 49 % Normal 36-65 [facility] Comment on above: Performed By: #### D CHAPINCITO, BMP, HCG, CDP, TSH, MG, TROPI #### [address] [address] [employer]: Chaitanya Mtz MD NRBC Automated 0.0 per 100 WBC Normal 0.0 [facility] Comment on above: Performed By: #### D CHAPINCITO, BMP, HCG, CDP, TSH, MG, TROPI #### [facility] [address] [place] [address] [id number] [employer]: Chaitanya Mtz MD RBC morphology finding Nom (Bld) ANISOCYTOSIS PRESENT Normal [facility] Comment on above: Performed By: #### D CHAPINCITO, BMP, HCG, CDP, TSH, MG, TROPI #### [facility] [address] [place] [address] [phone] [employer]: Chaitanya Mtz MD Basophils/100 WBC (Bld) 1 % Normal 0-2 [facility] Comment on above: Performed By: #### D CHAPINCITO, BMP, HCG, CDP, TSH, MG, TROPI #### [facility] [address] [place] [address] [phone] [employer]: Chaitanya Mtz MD Eosinophils/100 WBC (Bld) 1 % Normal 1-4 [facility] Comment on above: Performed By: #### D CHAPINCITO, BMP, HCG, CDP, TSH, MG, TROPI #### [facility] [address] [place] [address] [phone] [employer]: Chaitanya Mtz MD Hematocrit (Bld) [Volume fraction] 34.4 % Low 36.3-47.1 [facility] Comment on above: Performed By: #### D CHAPINCITO, BMP, HCG, CDP, TSH, MG, TROPI #### [facility] [address] [place] [address] [phone] [employer]: Chaitanya Mtz MD Hemoglobin (Bld) [Mass/Vol] 10.6 g/dL Low 11.9-15.1 [facility] Comment on above: Performed By: #### D CHAPINCITO, BMP, HCG, CDP, TSH, MG, TROPI #### [facility] [address] [place] [address] [phone] [employer]: Chaitanya Mtz MD Immature granulocytes/100 WBC (Bld) 0 % Normal 0 [facility] Comment on above: Performed By: #### D CHAPINCITO, BMP, HCG, CDP, TSH, MG, TROPI #### [facility] [address] [place] [address] [phone] [employer]: Chaitanya Mtz MD Lymphocytes/100 WBC (Bld) 43 % Normal 24-43 [facility] Comment on above: Performed By: #### D CHAPINCITO, BMP, HCG, CDP, TSH, MG, TROPI #### [facility] [address] [place] [address] [phone] [employer]: Chaitanya Mtz MD MCH (RBC) [Entitic mass] 26.5 pg Normal 25.2-33.5 [facility] Comment on above: Performed By: #### D CHAPINCITO, BMP, HCG, CDP, TSH, MG, TROPI #### [address] [address] [employer]: Chaitanya Mtz MD MCHC (RBC) [Mass/Vol] 30.8 g/dL Normal 28.4-34.8 [facility] Comment on above: Performed By: #### D CHAPINCITO, BMP, HCG, CDP, TSH, MG, TROPI #### [facility] [address] [place] [address] [phone] [employer]: Chaitanya Mtz MD MCV (RBC) [Entitic vol] 86.0 fL Normal 82.6-102.9 [facility] Comment on above: Performed By: #### D CHAPINCITO, BMP, HCG, CDP, TSH, MG, TROPI #### [facility] [address] [place] [address] [phone] [employer]: Chaitanya Mtz MD Monocytes/100 WBC (Bld) 6 % Normal 3-12 [facility] Comment on above: Performed By: #### D CHAPINCITO, BMP, HCG, CDP, TSH, MG, TROPI #### [facility] [address] [place] [address] [id number] [employer]: Chaitanya Mtz MD Platelet mean volume (Bld) [Entitic vol] 11.5 fL Normal 8.1-13.5 [facility] Comment on above: Performed By: #### D CHAPINCITO, BMP, HCG, CDP, TSH, MG, TROPI #### [facility] [address] [place] [address] [employer]: Chaitanya Mtz MD Platelets (Bld) [#/Vol] 201 10*3/uL Normal 138-453 [facility] Comment on above: Performed By: #### D CHAPINCITO, BMP, HCG, CDP, TSH, MG, TROPI #### [facility] [address] [place] [address] [employer]: Chaitanya Mtz MD RBC (Bld) [#/Vol] 4.00 10*6/uL Normal 3.95-5.11 [facility] Comment on above: Performed By: #### D CHAPINCITO, BMP, HCG, CDP, TSH, MG, TROPI #### [facility] [place] [address] [employer]: Chaitanya Mtz MD WBC (Bld) [#/Vol] 6.5 10*3/uL Normal 3.5-11.3 [facility] Comment on above: Performed By: #### D CHAPINCITO, BMP, HCG, CDP, TSH, MG, TROPI #### [facility] [address] [place] [address] [employer]: Chaitanya Mtz MD CT CHEST PULMONARY EMBOLISM W CONTRASTon 09-26-2022 No evidence of pulmonary embolism or acute pulmonary abnormality. [facility] R[facility] CONSOLID[facility] EXAMINATION: CTA OF THE CHEST [...] No acute bone or soft tissue abnormality. [facility] Beau Nunn MD - 09/26/2022 EXAMINATION: [...] of pulmonary embolism or acute pulmonary abnormality. [employer] Phone: Radiology Study observation (narrative) [employer] Phone: CT CHEST PULMONARY EMBOLISM W CONTRASTOrdered By: Beau Nunn on 09-26-2022 [employer] Phone: D-Dimer Teston 09-26-2022 D-Dimer Test 0.50 mg/L FEU Normal [facility] Comment on above: Result Comment: When combined with a low clinical probability, a D dimer value of <0.50 mg/L FEU is considered negative for DVT and PE (negative predictive value of 98%, sensitivity of 97%). If this test is not being used to help rule out DVT and PE, then the following reference range should be utilized: 0.00 - 1.02 mg/L FEU. The [employer] D-Dimer assay is intended for use as [...] with distal DVT. Performed By: #### D CHAPINCITO, BMP, HCG, CDP, TSH, MG, TROPI #### [facility] [address] [place] [address] [employer]: Chaitanya Mtz MD D-Dimer, Quantitativeon 08-31 F[employer] D-dimer FEU IA (Bld) [Mass/Vol] 0.50 ug/mL mg/L FEU [facility] Comment on above: When combined with a low clinical probability, a D dimer value of <0.50 mg/L FEU is considered negative for DVT and PE (negative predictive value of 98%, sensitivity of 97%). If this test is not being used to help rule out DVT and PE, then the following reference range should be utilized: 0.00 - 1.02 mg/L FEU. The [employer] D-Dimer assay is intended for use as [...] more prevalent in patients with distal DVT. [facility] [employer] HCG Qualitative, Serumon hCG Qual Negative NEGATIVE [facility] [employer] Comment on above: Specimens with hCG l evels near the threshold of the test (25 mIU/mL) may give a negative or indeterminate result. In such cases, another test should be performed with a new specimen in 48-72 hours. If early is suspected clinically in this setting, correlation with quantitative serum b-hCG level is suggested. [employer] has confirmed the use of plasma for this test. This has not been cleared or approved by the U.S. Food and Drug Administration. The FDA has determined that such clearance is not necessary. [employer] HCG Screen, Bloodon 09-26-19 HCG Screen, Blood Negative Normal NEG [facility] Comment on above: Result Comment: Spec imens with hCG levels near the threshold of the test (25 mIU/mL) may give a negative or indeterminate result. In such cases, another test should be performed with a new specimen in 48-72 hours. If early is suspected clinically in this setting, correlation with quantitative serum b-hCG level is suggested. [employer] has confirmed the use of plasma for this test. This has not been cleared or approved by the U.S. Food and Drug Administration. The FDA has determined that such clearance is not necessary. Performed By: #### D CHAPINCITO, BMP, HCG, CDP, TSH, MG, TROPI #### [employer] [facility] [place] [id number] [employer]: Chaitanya Mtz MD Magnesiumon 09-26-2022 Magnesium [Mass/Vol] 2.0 mg/dL Normal 1.6-2.6 [facility] Comment on above: Performed By: #### D CHAPINCITO, BMP, HCG, CDP, TSH, MG, TROPI #### [facility] [address] [place] [id number] [employer]: Chaitanya Mtz MD Magnesium [Mass/Vol] 2.0 mg/dL 1.6 - 2 .6 mg/dL [facility] No Panel Informationon 09-26 [facility] POC Glucose Fingerstickon Glucose [Mass/Vol] 116 mg/dL High 65 - 105 mg/dL [facility] Interpretation and review of laboratory results Abnormal [facility] TSHon 09-26-2022 TSH Qn 0.37 m[IU]/L [facility] Thyroid Stim. Horm.on 2022 Thyroid Stim. Horm. 0.37 uIU/mL Normal 0.30-5.00 [facility] Comment on above: Performed By: #### D CHAPINCITO, BMP, HCG, CDP, TSH, MG, TROPI #### [facility] [employer] [address] [place] [id number] [employer]: Chaitanya Mtz MD Troponinon 09-26-2022 Troponin, High Sens <6 Normal 0-14 [facility] Comment on above: Result Comment: High Sensitivity Troponin values cannot be compared with other Troponin methodologies. Performed By: #### D CHAPINCITO, BMP, HCG, CDP, TSH, MG, TROPI #### [facility] [address] [place] [id number] [employer]: Chaitanya Mtz MD Troponin I.cardiac DL <= 0.01 ng/mL [Mass/Vol] ng/L 0 - 14 ng/L [facility] Comment on above: High Sensitivity Tro ponin values cannot be compared with other Troponin methodologies. Laboratory studies (set)on 0 09-25-2022 Troponin 3.7 pg/mL 0-53.7 [facility] Comment on above: Troponin Reference R flip: Male: 0-78.5 pg/mL (ng/L) Female: 0-53.7 pg/mL (ng/L) Note: The new high sensitivity Troponin units are in pg/mL (ng/L) Albumin [Mass/Vol] 3.7 g/dL 3.4-5.0 [facility] Albumin/Globulin [Mass ratio] 1.0 {ratio} Low 1.1-1.8 [facility] ALP [Catalytic activity/Vol] 86 U/L 45-117 [facility] ALT [Catalytic activity/Vol] 18 U/L 12-78 [facility] Anion gap [Moles/Vol] 5.9 mmol/L Low 11-23 [facility] ([facility] CLEAR [facility] AST [Catalytic activity/Vol] 10 U/L Low 15-37 [facility] Basophils (Bld) [#/Vol] 0.0 10*3/uL 0-0.1 [facility] Basophils/100 WBC (Bld) 0.40 % 0-2 [facility] Bilirubin [Mass/Vol] 0.4 mg/dL 0.2-1.0 [facility] Bilirubin Ql (U) NEGATIVE [facility] Calcium [Mass/Vol] 8.8 mg/dL 8.5-10.1 [facility] Chloride [Moles/Vol] 110 mmol/L High 98-107 [facility] CK [Catalytic activity/Vol] 70 U/L 26-192 [facility] CO2 [Moles/Vol] 26.0 mmol/L 21-32 [facility] Color (U) [facility] Creatinine [Mass/Vol] 0.70 mg/dL 0.55-1.02 [facility] D-Dimer, Quantitative 0.45 mg/L FEU 0.0-0.59 [facility] Comment on above: The cut-off level fo [...] therapy. Eosinophils (Bld) [#/Vol] 0.1 10*3/uL 0.0-1.80 [facility] Eosinophils/100 WBC (Bld) 2.3 % 0-8 [facility] Erythrocyte distribution width (RBC) [Ratio] 15.9 % High 11.0-15.5 [facility] Estimated GFR () [facility] Comment on above: THE NORMAL LEVEL OF GFR VARIES ACCORDING TO AGE, SEX, AND BODY SIZE. A GFR LEVEL OF LESS THAN 60 ML/MIN REPRESENTS LOSS OF THE ADULT LEVEL OF NORMAL KIDNEY FUNCTION. GFR/1.73 sq M.predicted among non-blacks MDRD (S/P/Bld) [Vol rate/Area] [facility] Globulin (S) [Mass/Vol] 3.5 g/dL 2.5-4.6 [facility] Glucose [Mass/Vol] 116 mg/dL High 70-100 [facility] Glucose Ql (U) NEGATIVE [facility] Granulocytes (Bld) [#/Vol] 3.0 10*3/uL 2.2-9.1 [facility] Granulocytes/100 WBC (Bld) 50.3 % 42-80 [facility] HCG Qn (U) [facility] Hematocrit (Bld) [Volume fraction] 32.0 % Low 37.0-47.0 [facility] Hemoglobin (Bld) [Mass/Vol] 10.4 g/dL Low 12.0-16.0 [facility] Hemoglobin Ql (U) NEGATIVE [facility] Ketones Ql (U) NEGATIVE [facility] Leukocyte esterase Test strip Ql (U) NEGATIVE [facility] Lymphocytes (Bld) [#/Vol] 2.3 10*3/uL 1.0-4.0 [facility] Lymphocytes/100 WBC (Bld) 38.5 % 16-48 [facility] MCH (RBC) [Entitic mass] 26.8 pg 26.0-32.0 [facility] MCHC (RBC) [Mass/Vol] 32.5 g/dL 31.0-36.0 [facility] MCV (RBC) [Entitic vol] 82.2 fL 80-97 [facility] Monocyte distribution width Auto (Bld) [Entitic vol] 17.39 0-20 [facility] Comment on above: For ED adult patient s suspected of sepsis, MDW<=20.0 does not rule out sepsis or risk of sepsis Monocytes (Bld) [#/Vol] 0.5 10*3/uL 0.1-1.7 [facility] Monocytes/100 WBC (Bld) 8.5 % 3-9 [facility] Nitrite Ql (U) NEGATIVE [facility] pH (U) 6.0 [pH] 5.0-9.0 [facility] Platelet mean volume (Bld) [Entitic vol] 9.4 fL 6.6-10.5 [facility] Platelets (Bld) [#/Vol] 185 10*3/uL 140-450 [facility] Potassium [Moles/Vol] 4.1 mmol/L 3.5-5.1 [facility] Protein [Mass/Vol] 7.2 g/dL 6.0-8.3 [facility] Protein Ql (U) NEGATIVE [facility] RBC (Bld) [#/Vol] 3.89 10*6/uL Low 4.20-5.50 [facility] Sodium [Moles/Vol] 138 mmol/L 136-145 [facility] Specific gravity (U) [Rel density] 1.003-1.035 [facility] Urea nitrogen [Mass/Vol] 8.0 mg/dL 7-18 [facility] Urobilinogen Ql (U) 0.2 E.U./dL <=1.0 [facility] WBC (Bld) [#/Vol] 5.9 10*3/uL 4.0-11.0 [facility] LABORATORYOrdered By: Rupali Jones on 03-08-2022 Blood Glucose Testing Reason Routine (03/08/22 7:11 AM) [facility] Glucose [Mass/Vol] 158 mg/dL Invalid Interpretation Code 70 - 110 mg/dL [facility] LABORATORYOrdered By: Nelson Tran on 03-07-2022 Glucose [Mass/Vol] 110 mg/dL Invalid Interpretation Code 70 - 110 mg/dL [facility] Blood Glucose Testing Reason Routine (03/07/22 6:15 PM) [facility] Glucose [Mass/Vol] 210 mg/dL Invalid Interpretation Code 70 - 110 mg/dL [facility] LABORATORYOrdered By: Linh Mix on 2022 Blood Glucose Testing Reason Routine (03/06/22 8:45 PM) [facility] LABORATORYOrdered By: [employer] on 2022 Albumin BCP dye [Mass/Vol] [...] Code 11.5 - 15.5 % Workflow SS HbA1c (Bld) [Mass fraction] 7.2 % Invalid Interpretation Code 4.0 - 6.0 % Auto Chem SS Hematocrit (Bld) [Volume fraction] 27.8 % Invalid Interpretation Code 34.0 - 46.0 % Workflow SS Hemoglobin (Bld) [Mass/Vol] 9.6 G/dL [...] Invalid Interpretation Code 80.0 - 99.0 fL AH Workflow SS Monocyte distribution width Auto (Bld) [...] 13.0 % Workflow SS Neutrophils (Bld) [#/Vol] 4.6 103/mcL Invalid Interpretation Code 2.3 - 8.1 10^3/mcL Workflow SS Neutrophils/100 WBC (Bld) 54.8 % Invalid Interpretation Code 50.0 - 75.0 % Workflow SS Platelet mean volume (Bld) [Entitic vol] 9.4 fL Invalid Interpretation Code 6.6 - 10.5 fL Workflow SS Platelets (Bld) [#/Vol] 106 103/mcL Invalid Interpretation Code 150 - 450 10^3/mcL Workflow SS RBC (Bld) [#/Vol] 3.06 106/mcL Invalid Interpretation Code 4.10 - 5.30 10^6/mcL Workflow SS WBC 8.4 103/mcL Invalid Interpretation Code 4.5 - 10.8 10^3/mcL Workflow SS No Panel InformationOrdered By: Jocelyn Mix on 2022 Blood Glucose Interventions Administered agent to decrease blood sugar, Notify physician 4 (03/06/22 8:45 PM) [facility] LABORATORYOrdered By: Abigail marie on 03-05-2022 Drug Screen Urine Negative (03/05/22 10:57 AM) Invalid Interpretation Code Chemistry S Drug Screen Urine Interp Urine shows no evidence of drugs routinely screened. Invalid Interpretation Code Chemistry S Urine Drugs screened (DLRM): See Below (03/05/22 10:57 AM) Invalid Interpretation Code Chemistry S LABORATORYOrdered By: Whitney Ulrich on 03-05-2022 Group B Strep PCR Int Group B Streptococ cus DNA detected by Real-Time Polymerase Chain Reaction [...] Comment on above: Result Comment: Note s [id number] LABORATORYOrdered By: Nancy del rio on 03-05-2022 ABO and Rh group Nom (Bld) Blood group O Rh(D) positive Invalid Interpretation Code BB Auto SS Blood group antibody screen Ql NEG (03/05/22 10:02 AM) Invalid Interpretation Code BB Auto SS LABORATORYOrdered By: SYSTEM SYSTEM on 03-05-2022 Basophils (Bld) [#/Vol] 0.0 103/mcL Invalid Interpretation Code 0.0 - 0.3 10^3/mcL AH Workflow SS Basophils/100 WBC (Bld) 0.2 % [...] % Workflow SS Hematocrit (Bld) [Volume fraction] 37.0 % Invalid Interpretation Code 34.0 - 46.0 % AH Workflow SS Hemoglobin (Bld) [Mass/Vol] 12.4 G/dL Invalid Interpretation Code 12.0 - 16.0 G/dL AH Workflow SS Lymphocytes (Bld) [#/Vol] 2.8 103/mcL Invalid Interpretation Code 0.9 - 4.3 10^3/mcL AH Workflow SS Lymphocytes/100 WBC (Bld) 32.7 % Invalid Interpretation Code 20.0 - 40.0 % AH Workflow SS MCH (RBC) [Entitic mass] 30.6 pg Invalid Interpretation Code 27.0 - 33.0 pg AH Workflow SS MCHC 33.6 G/dL Invalid Interpretation Code 32.0 - 36.0 G/dL AH Workflow SS MCV (RBC) [Entitic vol] 90.8 fL Invalid Interpretation Code 80.0 - 99.0 fL AH Workflow SS Monocyte distribution width Auto (Bld) [Entitic vol] Not Performed 3 *NA* (03/05/22 10:02 AM) Invalid Interpretation Code 0.00 - 20.00 Hematology S Comment on above: Result Comment: MDW testing performed only on adult ER patients between the ages of 18-89 years. Monocytes (Bld) [#/Vol] 0.5 103/mcL Invalid Interpretation Code 0.1 - 1.4 10^3/mcL AH Workflow SS Monocytes/100 WBC (Bld) 6.2 % Invalid Interpretation Code 2.0 - 13.0 % AH Workflow SS Neutrophils (Bld) [#/Vol] 5.3 103/mcL Invalid Interpretation Code 2.3 - 8.1 10^3/mcL AH Workflow SS Neutrophils/100 WBC (Bld) 60.6 % Invalid Interpretation Code 50.0 - 75.0 % AH Workflow SS Platelet mean volume (Bld) [Entitic vol] 9.9 fL Invalid Interpretation Code 6.6 - 10.5 fL AH Workflow SS Platelets (Bld) [#/Vol] 127 103/mcL Invalid Interpretation Code 150 - 450 10^3/mcL AH Workflow SS RBC (Bld) [#/Vol] 4.07 106/mcL Invalid Interpretation Code 4.10 - 5.30 10^6/mcL AH Workflow SS WBC 8.7 103/mcL Invalid Interpretation Code 4.5 - 10.8 10^3/mcL AH Workflow SS LABORATORYOrdered By: Mando Willis on 08-07-2022 C. trachomatis DNA HUNG+probe Ql (Unsp spec) Negative (03/05/22 10:02 AM) Invalid Interpretation Code Negative AH Auto Viro/Sero SS C. trachomatis Interp C. [...] Invalid Interpretation Code 70 - 110 mg/dL [facility] LABORATORYOrdered By: Nancy senior on 01-17-2022 Glucose [Mass/Vol] 155 mg/dL Invalid Interpretation Code 70 - 110 mg/dL [facility] Glucose [Mass/Vol] 195 mg/dL Invalid Interpretation Code 70 - 110 mg/dL [facility] LABORATORYOrdered By: Trisha Pena on 01-17-2022 ABO [...] Invalid Interpretation Code 12.0 - 16.0 G/dL Workflow SS Lymphocytes (Bld) [#/Vol] 2.2 103/mcL Invalid Interpretation Code 0.9 - 4.3 10^3/mcL Workflow SS Lymphocytes/100 WBC (Bld) 33.1 % Invalid Interpretation Code 20.0 - 40.0 % Workflow SS MCH (RBC) [Entitic mass] 30.5 pg Invalid Interpretation Code 27.0 - 33.0 pg AH Workflow SS MCHC 33.2 G/dL Invalid Interpretation Code 32.0 - 36.0 G/dL AH Workflow SS MCV (RBC) [Entitic vol] 91.7 [...] 1.4 10^3/mcL Workflow SS Monocytes/100 WBC (Bld) 7.8 % Invalid Interpretation Code 2.0 - 13.0 % Workflow SS Neutrophils (Bld) [#/Vol] 3.8 103/mcL Invalid Interpretation Code 2.3 - 8.1 10^3/mcL AH Workflow SS Neutrophils/100 WBC (Bld) 58.1 % Invalid Interpretation Code 50.0 - 75.0 % AH Workflow SS Platelet mean volume (Bld) [Entitic vol] 9.3 fL Invalid Interpretation Code 6.6 - 10.5 fL AH Workflow SS Platelets (Bld) [#/Vol] 165 103/mcL Invalid Interpretation Code 150 - 450 10^3/mcL AH Workflow SS RBC (Bld) [#/Vol] 3.90 106/mcL Invalid Interpretation Code 4.10 - 5.30 10^6/mcL AH Workflow SS WBC 6.6 103/mcL Invalid Interpretation Code 4.5 - 10.8 10^3/mcL AH Workflow SS Avril 12-27-2021 EMERGENCY PHYSICIAN REPORT This is a preliminary report only, as the practitioner review and authentication has not occurred. Normal [facility] ER PHYSICIAN ASSESSMENT RECORDS : FlexChartData Event Time: 12/27/2021 01:45 CMCA Status: Signed [facility] Betsy Mesa [[id number]] Mid-Level Chart (V2b) / 1995 Chart created at 12/27/2021 01:33 by [facility] Chart closed at 12/27/2021 01:57 Entry in Emergency Department at 12/26/2021 22:16, departure at 12/27/2021 02:09 Patient Name: Betsy Mesa Record Number: [id number] Date: 12/27/2021 01:33 Entered Department at: 12/26/2021 22:16 Patient Seen at: 12/27/2021 00:38 Historian: Patient PCP: [facility] [place] Chief Complaint:RIGHT CALF PAIN, 29 [...] in the area. She denies any additional [facility] PATIENT NAME: BETSY MESA [address] [place] MEDICAL REC #: [id number] [place] [address] EMERGENCY DEPARTMENT REPORT EMERGENCY DEPARTMENT PHYSICIAN symptoms including fever, chills, chest pain, shortness of breath, nausea, vomiting. She is currently 29 weeks . She has no complaints regarding the itself. She sees [facility] for her . She has a history [...] Normal and Normal Memory/Judgment Medical Decision Making [facility] PATIENT NAME: BETSY MESA [address] 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 I am more (more content not included)... Normal [facility] LABORATORYOrdered By: Whitney Chand on 05-18-2021 ADMITTED TO INTENSIVE CARE UNIT FOR CONDITION OF INTEREST:FIND:PT:^TEMO ENT:ORD: No (05/18/21 12:17 PM) Invalid Interpretation Code AO Auto Urine SS EMPLOYED IN A HEALTHCARE SETTING:FIND:PT:^PATIE NT:ORD: No (05/18/21 12:17 PM) Invalid Interpretation Code AO Auto Urine SS FIRST TEST FOR CONDITION OF INTEREST:FIND:PT:^TEMO ENT:ORD: Yes (05/18/21 12:17 PM) Invalid Interpretation Code AO Auto Urine SS HAS SYMPTOMS RELATED TO CONDITION OF INTEREST:FIND:PT:^TEMO ENT:ORD: Yes (05/18/21 12:17 PM) Invalid Interpretation Code AO Auto Urine SS Illness or injury onset date and time [id number] Invalid Interpretation Code AO Auto Urine SS Patient was hospitalized because of this condition No (05/18/21 12:17 PM) Invalid Interpretation Code AO Auto Urine SS status Not (05/18/21 12:17 PM) Invalid Interpretation Code AO Auto Urine SS RESIDES IN A CONGREGATE CARE SETTING:FIND:PT:^PATIE NT:ORD: No (05/18/21 12:17 PM) Invalid Interpretation Code [...] definite cause of disease. Laboratories within the [facility] and its territories are required to report [...] PCR Panelon 0 03-16-2021 SARS-CoV-2 (COVID-19) RNA HUGN+probe Ql (Unsp spec) COVID and Resp PCR Panel --> Status: F NEGATIVE: No targets were detected by the [employer] Upper Respiratory Pathogens PCR Panel. _ Expected Result: Not Detected The [employer] Upper Respiratory Pathogens PCR Panel can detect [...] management decisions. This assay was developed by [employer] and distributed under an Emergency Use Authorization (EUA) granted by the FDA for the qualitative detection of SARS-CoV-2 nucleic acid. Provider and patient fact sheets can be found at https://www.fda.gov/co nick/204595/download and https://www.fda.gov/co nick/536793/download. Respiratory Pathogens PCR Panel. _ Expected Result: Not Detected The [employer] Upper Respiratory Pathogens PCR Panel can detect [...] management decisions. This assay was developed by [employer] and distributed under an Emergency Use Authorization (EUA) granted by the FDA for the qualitative detection of SARS-CoV-2 nucleic acid. Provider and patient fact sheets can be found at https://www.[facility].gov/co nick/783254/download and https://www.[facility].gov/co nick/045946/download. Normal [facility] Comment on above: Performed By: #### B FRP2 #### [facility] [address] [place] [address] Chlamydia and GC PCR Panelon 03-16-2021 Chlamydia [...] such as suspected child abuse or molestation. Normal [facility] Comment on above: Performed By: #### C TNGP #### [facility] [address] [place] [address] CR Chest Portableon 03-15-20 21 CR Chest Portable Patient Name: BETSY MESA Diagnostic Radiology ACCESSION EXAM DATE/TIME PROCEDURE ORDERING PROVIDER [id number] 03/15/2021 22:23 EDT CR Chest Portable [employer] ENGLISH CPT code 50008 Reason For Exam (CR Chest Portable) cough [...] WENDELL Transcribed Date and Time: 03/15/2021 10:26 Normal [facility] ED Provider Noteon ED Provider Note I was not involved i n this patient's care TESS Jeffers 03/15/21 2236 [facility] ED Provider Note [facility] EMERGENCY DEPT EMERGENCY DEPARTMENT ENCOUNTER Pt Name: Betsy Mesa Birthdate 1995 Date of evaluation: 03/15/2021 [...] Modifying Factors, Severity) Note limiting factors. HPI Betsy Mesa is a 26 y.o. female who [...] Gatherings with Friends and Family: ? Attends [employer] Services: ? Active Member of Clubs or Organizations: ? Attends Club or Organization Meetings: ? Marital Status: Intimate Partner Violence: ? Fear of Current or Ex-Partner: ? Emotionally Abused: ? Physically Abused: ? Sexually Abused: SCREENINGS PHYSICAL EXAM (up to 7 for level 4, 8 or more for level 5) ED Triage Vitals BP Temp Temp Source Pulse Resp SpO2 Height Weight 03/15/21202003/15/21202003/15/21202003/15/21202003/15/21202003/15/21202003/15/21201903/15/212019 125/80 97.8 ?F (36.6 ?C) Temporal 97 18 98 % 5' 10 (1.778 m) 180 lb (81.6 kg) Physical Exam Vitals and nursing note reviewed. Exam conducted with a electron gun inspector present. Constitutional: General: She is not in [...] No t (more content not included)... Normal [facility] XR CHEST PORTABLEOrdered By: Carlitos English on 03-15-2021 Patient Name: BETSY MESA Diagnostic Radiology ACCESSION EXAM DATE/TIME PROCEDURE ORDERING PROVIDER [id number] 03/15/2021 22:23 EDT CR Chest Portable CAR[facility] ENGLSIH CPT code 88518 Reason For Exam (CR Chest Portable) cough [...] WENDELL Transcribed Date and Time: 03/15/2021 10:26 [facility] Work Phone: [facility] Incoming Radiology Results From [employer] - 03/15/2021 10:28 PM EDT Patient Name: BETSY MESA Diagnostic Radiology ACCESSION EXAM DATE/TIME PROCEDURE ORDERING PROVIDER [id number] 03/15/2021 22:23 EDT CR Chest Portable [employer] ENGLISH CPT code 80968 Reason For Exam (CR Chest Portable) cough [...] WENDELL Transcribed Date and Time: 03/15/2021 10:26 [facility] Work Phone: [facility] Work Phone: Basic Metabolic Panelon 08-0 Calcium [Mass/Vol] 9.5 mg/dL Normal 8.4-10.4 [facility] Comment on above: Performed By: #### H EMDF, TROPN, BMP3, QWAL2 #### [address] Anion gap [Moles/Vol] 6 mmol/L Normal 3-13 [facility] Comment on above: Performed By: #### H EMDF, TROPN, BMP3, QWAL2 #### [address] [address] [place], [place] CO2 [Moles/Vol] 23 mmol/L Normal 22-30 [facility] Comment on above: Performed By: #### H EMDF, TROPN, BMP3, QWAL2 #### [address] Creatinine [Mass/Vol] 0.72 mg/dL Normal 0.52-1.25 [facility] Comment on above: Performed By: #### H EMDF, TROPN, BMP3, QWAL2 #### [address] eGFR OTHER > 90.0 Normal >60 [facility] Comment on above: Result Comment: KDIG O [...] #### H EMDF, TROPN, BMP3, QWAL2 #### [address] GFR/1.73 sq M.predicted among blacks MDRD (S/P/Bld) [Vol rate/Area] mL/min/{1.73_m2} Normal >60 [facility] Comment on above: Performed By: #### H EMDF, TROPN, BMP3, QWAL2 #### [address] Glucose [Mass/Vol] 145 mg/dL High 70-100 [facility] Comment on above: Performed By: #### H EMDF, TROPN, BMP3, QWAL2 #### [address] Urea nitrogen [Mass/Vol] 9 mg/dL Normal 7-20 [facility] Comment on above: Performed By: #### H EMDF, TROPN, BMP3, QWAL2 #### [facility] [address] [place] [address] Chloride [Moles/Vol] 108 mmol/L High 98-107 [facility] Comment on above: Performed By: #### H EMDF, TROPN, BMP3, QWAL2 #### [facility] [address] [place] [address] Potassium [Moles/Vol] 3.7 mmol/L Normal 3.5-5.1 [facility] Comment on above: Performed By: #### H EMDF, TROPN, BMP3, QWAL2 #### [facility] [address] [place] [address] Sodium [Moles/Vol] 138 mmol/L Normal 135-145 [facility] Comment on above: Performed By: #### H EMDF, TROPN, BMP3, QWAL2 #### [facility] [place] [address] Basic Metabolic PanelOrdered By: Sherin Dawkins on 03-07-2021 Anion gap [Moles/Vol] 6 mmol/L 3 - 13 mmol/L [facility] Work Phone: Calcium [Mass/Vol] 9.5 mg/dL 8.4 - 10. 4 mg/dL [facility] Work Phone: Chloride [Moles/Vol] 108 mmol/L High 98 - 10 7 mmol/L [facility] Work Phone: CO2 [Moles/Vol] 23 mmol/L 22 - 30 mmol/L [facility] Work Phone: Creatinine [Mass/Vol] 0.72 mg/dL 0.52 - 1.25 mg/dL [facility] Work Phone: EGFR IF NonAfrican Icelandic >90.0 >60 mL/min [facility] Work Phone: Comment on above: KDIGO guidelines [...] MDRD (S/P/Bld) [Vol rate/Area] mL/min/{1.73_m2} >60 mL/min [employer] Work Phone: Glucose [Mass/Vol] 145 mg/dL High 70 - 100 mg/dL [employer] Work Phone: Interpretation and review of laboratory results Abnormal [employer] Work Phone: Potassium [Moles/Vol] 3.7 mmol/L 3.5 - 5.1 mmol/L [employer] Work Phone: Sodium [Moles/Vol] 138 mmol/L 135 - 145 mmol/L [employer] Work Phone: Urea nitrogen (BldV) [Mass/Vol] 9 mg/dL 7 - 20 mg/dL [employer] Work Phone: Test Performed by [employer], [address] [place] [address] [facility] Work Phone: [employer] Work Phone: Complete Urinalysison 2020 Amorphous Crystal Few Abnormal Negative [facility] Comment on above: Result Comment: . Performed By: #### C UA2 #### [employer] [facility] [place] [address] Appearance (U) Turbid Abnormal [facility] Comment on above: Result Comment: . Performed By: #### C UA2 #### [employer] [facility] [place] [address] Bacteria Moderate Abnormal Negative [facility] Comment on above: Result Comment: . Performed By: #### C UA2 #### [facility] [address] [place], [place] Bilirubin,Urine Negative Normal Negative [facility] Comment on above: Result Comment: . Performed By: #### C UA2 #### [facility] [address] [place], [place] Cast, Hyaline Negative Normal Negative [facility] Comment on above: Result Comment: . Performed By: #### C UA2 #### [facility] [address] [place], [place] Color (U) Yellow Normal Lt. Yellow [facility] Comment on above: Result Comment: . Performed By: #### C UA2 #### [address] [address] [address] [place], [place] Glucose Ql (U) Normal Normal Normal (<70) [facility] Comment on above: Result Comment: . Performed By: #### C UA2 #### [address] [address] [address] [place], [place] Ketone,Urine 10 mg/dL Abnormal Negative [facility] Comment on above: Result Comment: . Performed By: #### C UA2 #### [address] [address] [address] [place], [place] Leukocytes,Urine 500 Robin/uL Abnormal Negative [facility] Comment on above: Result Comment: . Performed By: #### C UA2 #### [address] [address] [address] [place], [place] Mucous Threads Many Abnormal Negative [facility] Comment on above: Result Comment: . Performed By: #### C UA2 #### [address] [address] [address] [place], [place] Nitrites,Urine Negative Normal Negative [facility] Comment on above: Result Comment: . Performed By: #### C UA2 #### [address] [address] [address] [place], [place] Occult Blood,Urine Negative Normal Negative [facility] Comment on above: Result Comment: . Performed By: #### C UA2 #### [facility] [address] [place], [place] pH,Urine 6.0 Normal 5.0-8.0 [facility] Comment on above: Result Comment: . Performed By: #### C UA2 #### [address] [address] [address] [place], [place] Protein (U) [Mass/Vol] 20 mg/dL Abnormal Negative [facility] Comment on above: Result Comment: . Performed By: #### C UA2 #### [address] [address] [address] [place], [place] RBC, Urine 26 - 50 Abnormal 0-2 [facility] Comment on above: Result Comment: . Performed By: #### C UA2 #### [address] Specific [place],Urine 1.015 Normal 1.005 - 1.030 [facility] Comment on above: Result Comment: . Performed By: #### C UA2 #### [address] Squamous Epithelial 26 - 50 Abnormal 3-5 [facility] Comment on above: Result Comment: . Performed By: #### C UA2 #### [address] [place], [place] Urobilinogen,Urine 2 mg/dL Abnormal Normal (0-1) [facility] Comment on above: Result Comment: . Performed By: #### C UA2 #### [address] [address] [place], [place] WBC, Urine 26 - 50 Abnormal 0-5 [facility] Comment on above: Result Comment: . Performed By: #### C UA2 #### [address] ED Provider Noteon ED Provider Note [facility] EMERGENCY DEPT EMERGENCY DEPARTMENT ENCOUNTER Pt Name: Betsy Mesa Birthdate 1995 Date of evaluation: 03/07/2021 [...] Modifying Factors, Severity) Note limiting factors. HPI Betsy Mesa is a 26 y.o. female who [...] Gatherings with Friends and Family: ? Attends [employer] Services: ? Active Member of Clubs or [...] the Emergency (more content not included)... Normal [facility] [facility] HCG Qualitative, SerumOrdere d By: Sherin Dawkins on 03-07-2021 hCG Qual Negative [facility] Work Phone: Comment on above: Reference Range: NEG ATIVE Effective 10/10/2019, the reference interval for the qualitative test has been updated. This test detects hCG at concentrations of 10 mIU/L or greater in serum. Test Performed by [employer], [address] [place] [address] [employer] Work Phone: [employer] Work Phone: Hemogram (CBC) w/Auto DiffOr dered By: Sherin Dawkins on 03-07-2021 Absolute Baso # 0.0 10*3/uL 0.0 - 0.2 10*3/uL [employer] Work Phone: Absolute Neut # 4.4 10*3/uL 1.8 - 7.0 10*3/uL [employer] Work Phone: Basophils/100 WBC (Bld) 0.5 % 0.0 - 2.0 % [employer] Work Phone: Eosinophils (Bld) [#/Vol] 0.0 10*3/uL 0.0 - 0.5 10*3/uL [employer] Work Phone: Eosinophils/100 WBC (Bld) 0.5 % Low 1.0 - 6.0 % [employer] Work Phone: Granulocytes/100 WBC (Bld) 56.3 % 40.0 - 80.0 % [facility] Work Phone: Hematocrit (Bld) [Volume fraction] 40.6 % 35.0 - 47.0 % [employer] Work Phone: Hemoglobin.gastrointes tinal spec 1 Ql (Stl) 13.6 g/dL 11.7 - 16.0 g/dL [employer] Work Phone: Interpretation and review of laboratory results Abnormal [employer] Work Phone: Lymphocytes (Bld) [#/Vol] 2.9 10*3/uL 1.0 - 4.3 10*3/uL [employer] Work Phone: Lymphocytes/100 WBC (Bld) 36.8 % 20.0 - 40.0 % [facility] Work Phone: MCH (RBC) [Entitic mass] 30.0 pg 26.0 - 34.0 pg [facility] Work Phone: MCHC (RBC) [Mass/Vol] 33.6 % 32.0 - 36.0 % [employer] Work Phone: MCV (RBC) [Entitic vol] 89.4 fL 79.0 - 98.0 fL [employer] Work Phone: Monocytes (Bld) [#/Vol] 0.5 10*3/uL 0.0 - 0.8 10*3/uL [facility] Work Phone: Monocytes/100 WBC (Bld) 5.9 % 2.0 - 10.0 % [employer] Phone: Platelet distribution width (Bld) [Ratio] 14.3 % 11.5 - 14.5 % [employer] Phone: Platelet mean volume (Bld) [Entitic vol] 10.2 fL 7.4 - 10.4 fL [facility] Work Phone: Platelets (Bld) [#/Vol] 183 10*3/uL 140 - 440 10*3/uL [employer] Work Phone: RBC (Bld) [#/Vol] 4.54 10*6/uL 3.80 - 5.2 0 10*6/uL [employer] Work Phone: WBC (Bld) [#/Vol] 7.8 10*3/uL 3.6 - 10.7 10*3/uL [facility] Work Phone: Test Performed by [employer], [address] [place] [address] [facility] Work Phone: [employer] Work Phone: Hemogram w/ Autodiffon 03-07 Abs Baso Cnt 0.0 10*3/uL Normal 0.0-0.2 [employer] Comment on above: Performed By: #### H EMDF, TROPN, BMP3, QWAL2 #### [address] [address] [place] [address] Abs Neutrophile Cnt 4.4 10*3/uL Normal 1.8-7.0 [facility] Comment on above: Performed By: #### H EMDF, TROPN, BMP3, QWAL2 #### [address] [address] [place], [place] Basophils/100 WBC (Bld) 0.5 % Normal 0.0-2.0 [facility] Comment on above: Performed By: #### H EMDF, TROPN, BMP3, QWAL2 #### [address] Eosinophils (Bld) [#/Vol] 0.0 10*3/uL Normal 0.0-0.5 [facility] Comment on above: Performed By: #### H EMDF, TROPN, BMP3, QWAL2 #### [address] Eosinophils/100 WBC (Bld) 0.5 % Low 1.0-6.0 [facility] Comment on above: Performed By: #### H EMDF, TROPN, BMP3, QWAL2 #### [address] Erythrocyte distribution width (RBC) [Ratio] 14.3 % Normal 11.5-14.5 [facility] Comment on above: Performed By: #### H EMDF, TROPN, BMP3, QWAL2 #### [address] Granulocytes/100 WBC (Bld) 56.3 % Normal 40.0-80.0 [facility] Comment on above: Performed By: #### H EMDF, TROPN, BMP3, QWAL2 #### [address] [address] Hematocrit (Bld) [Volume fraction] 40.6 % Normal 35.0-47.0 [facility] Comment on above: Performed By: #### H EMDF, TROPN, BMP3, QWAL2 #### [address] [address] [address] [place], [place] Hemoglobin (Bld) [Mass/Vol] 13.6 g/dL Normal 11.7-16.0 [facility] Comment on above: Performed By: #### H EMDF, TROPN, BMP3, QWAL2 #### [address] [address] [place], [place] Lymphocytes (Bld) [#/Vol] 2.9 10*3/uL Normal 1.0-4.3 [facility] Comment on above: Performed By: #### H EMDF, TROPN, BMP3, QWAL2 #### [address] Lymphocytes/100 WBC (Bld) 36.8 % Normal 20.0-40.0 [facility] Comment on above: Performed By: #### H EMDF, TROPN, BMP3, QWAL2 #### [address] MCH (RBC) [Entitic mass] 30.0 pg Normal 26.0-34.0 [facility] Comment on above: Performed By: #### H EMDF, TROPN, BMP3, QWAL2 #### [address] MCHC 33.6 % Normal 32.0-36.0 [facility] Comment on above: Performed By: #### H EMDF, TROPN, BMP3, QWAL2 #### [address] [address] [place], [place] MCV (RBC) [Entitic vol] 89.4 fL Normal 79.0-98.0 [facility] Comment on above: Performed By: #### H EMDF, TROPN, BMP3, QWAL2 #### [address] Monocytes (Bld) [#/Vol] 0.5 10*3/uL Normal 0.0-0.8 [facility] Comment on above: Performed By: #### H EMDF, TROPN, BMP3, QWAL2 #### [address] [address] [address] [place], [place] Monocytes/100 WBC (Bld) 5.9 % Normal 2.0-10.0 [facility] Comment on above: Performed By: #### H EMDF, TROPN, BMP3, QWAL2 #### [address] [address] [address] [place], [place] Platelet mean volume (Bld) [Entitic vol] 10.2 fL Normal 7.4-10.4 [facility] Comment on above: Performed By: #### H EMDF, TROPN, BMP3, QWAL2 #### [address] [address] [address] [place], [place] Platelets (Bld) [#/Vol] 183 10*3/uL Normal 140-440 [facility] Comment on above: Performed By: #### H EMDF, TROPN, BMP3, QWAL2 #### [address] [address] [address] [place], [place] RBC (Bld) [#/Vol] 4.54 10*6/uL Normal 3.80-5.20 [facility] Comment on above: Performed By: #### H EMDF, TROPN, BMP3, QWAL2 #### [place] [address] [address] [place], [place] WBC (Bld) [#/Vol] 7.8 10*3/uL Normal 3.6-10.7 [facility] Comment on above: Performed By: #### H EMDF, TROPN, BMP3, QWAL2 #### [place] [address] [address] [place], [place] Troponin Ion 03-07-2021 Troponin I.cardiac [Mass/Vol] ng/mL Normal 0.000-0.034 [facility] Comment on above: Result Comment: . Performed By: #### H EMDF, TROPN, BMP3, QWAL2 #### [place] [address] [address] [place], [place] Troponin [id number] By: Isreal Kincaid on 03-07-2021 Troponin I.cardiac [Mass/Vol] ng/mL 0.000 - 0.034 ng/mL [facility] Work Phone: Comment on above: . Test Performed by [employer] [facility], [address] [place] [address] [employer] Work Phone: [facility] Work Phone: UrinalysisOrdered By: Sherin hanson on 03-07-2021 AMORPHOUS CRYSTAL Few Abnormal Negative /[HPF] [employer] Work Phone: Comment on above: . Appearance (U) Turbid Abnormal Clear NA [facility] Work Phone: Comment on above: . Bacteria, UA Moderate Abnormal Negative /[HPF] [facility] Work Phone: Comment on above: . Bilirubin Urine Negative Negative mg/dL [facility] Work Phone: Comment on above: . Color (U) Yellow Lt. Yellow NA [facility] Work Phone: Comment on above: . Glucose, Ur Normal Normal (<70) mg/dL [facility] Work Phone: Comment on above: . Hyaline Casts, UA Negative Negative /[LPF] [facility] Work Phone: Comment on above: . Interpretation and review of laboratory results Abnormal [facility] Work Phone: Ketones Ql (U) 10 mg/dL Abnormal Negative [facility] Work Phone: Comment on above: . LEUKOCYTES, UA 500 Abnormal Negative Robin/uL [employer] Work Phone: Comment on above: . Mucous Threads Many Abnormal Negative /[LPF] [employer] Work Phone: Comment on above: . Nitrite, Urine Negative Negative NA [facility] Work Phone: Comment on above: . Occult Blood,Urine Negative Negative mg/dL [employer] Work Phone: Comment on above: . pH (U) 6.0 [pH] [employer] Work Phone: Comment on above: . Protein (U) [Mass/Vol] 20 mg/dL Abnormal Negative [employer] Work Phone: Comment on above: . RBC, UA 26-50 Abnormal 0 - 2 /[HPF] [facility] Work Phone: Comment on above: . Specific [place], Urine 1.015 [facility] Work Phone: Comment on above: . Squam Epithel, UA 26-50 Abnormal 3 - 5 /[HPF] [facility] Work Phone: Comment on above: . Urobilinogen, Urine 2 mg/dL Abnormal Normal (0-1) [facility] Work Phone: Comment on above: . WBC, UA 26-50 Abnormal 0 - 5 /[HPF] [facility] Work Phone: Comment on above: . Test Performed by [employer], [address] [place] [address] [facility] Work Phone: [facility] Work Phone: hCG Qual Pregon 03-07-2021 hCG Qual Preg Negative Normal [facility] [employer] [facility] Comment on above: Result Comment: Refe rence Range: NEGATIVE Effective 10/10/2019, the reference interval for the qualitative test has been updated. This test detects hCG at concentrations of 10 mIU/L or greater in serum. Performed By: #### H EMDF, TROPN, BMP3, QWAL2 #### [facility] [address] [address] Chlam/GC-DNA Amplifiedon Chlam/GC-DNA Amplified Test performed at [facility] Chlamydia trachomatis DNA NOT DETECTED Neisseria gonorrhoeae DNA NOT DETECTED Reference range NOT DETECTED Method: Strand Displacement Amplification-BD ProbeTec Assay Comment: A negative result does not preclude C.trachomatis or N. gonorrhoeae infection because results are dependent on adequate specimen collection, absence of inhibitors, and sufficient DNA to be detected. Normal [facility] Comment on above: Performed By: #### T &S #### [place] [address] HIV Screenon 01-07-2019 HIV Screen Nonreactive Normal Nonreactive [facility] Comment on above: Performed By: #### 3 HIV #### [place] [address] Hepatitis Acute Panelon 12-28 HAV Ab IgM Negative Normal Negative [facility] Comment on above: Performed By: #### H EPP #### [facility] [address] [place] [address] HB Core Ab IgM Negative Normal Negative [facility] Comment on above: Performed By: #### H EPP #### [place] [address] Hepatitis C Ab Negative Normal Negative [facility] Comment on above: Performed By: #### H EPP #### [place] [address] Hep.B Surface Ag Negative Normal Negative [facility] Comment on above: Performed By: #### H EPP #### [place] [address] Rapid Bact.Vaginosison 01-07 Rapid Bact.Vaginosis see below Normal Negative [facility] Comment on above: Result Comment: Posi tive for the presence of bacterial vaginosis. Performed By: #### R APBV #### [place] [address] Rapid Trichomonas Agon 01-07 Rapid Trichomonas Ag see below Normal Negative [facility] Comment on above: Result Comment: No T richomonas antigen present or the antigen level is below detection limit of the assay (2500 organisms/mL). Performed By: #### R APTR #### [place] [address] Rubella, Quantitativeon 12-28 Rubella, Quantitative 22.80 IU/mL Normal [facility] Comment on above: Result Comment: Not Immune <5.0 IU/mL Indeterminate >=5.0 IU/mL <=9.9 IU/ml Suggest repeat testing in 2-3 weeks Immune >=10.0 IU/mL Performed By: #### R UB3 #### [facility] [address] [place] [address] Chlam/GC-DNA Amplifiedon Chlam/GC-DNA Amplified Test performed at [facility] Chlamydia trachomatis DNA NOT DETECTED Neisseria gonorrhoeae DNA NOT DETECTED Reference range NOT DETECTED Method: Strand Displacement Amplification-BD ProbeTec Assay Comment: A negative result does not preclude C.trachomatis or N. gonorrhoeae infection because results are dependent on adequate specimen collection, absence of inhibitors, and sufficient DNA to be detected. Normal [facility] Comment on above: Performed By: #### T &S #### [place] [address] Cult Urineon 01-06-2019 Cult Urine Test performed at [facility] ORGANISM: *Streptococcus agalactiae (Group B Strep) (ID: 1) >100,000 CFU/ml Normal [facility] Comment on above: Performed By: #### C _URI #### [place] [address] Hemogramon 01-06-2019 Erythrocyte distribution width (RBC) [Ratio] 14.2 % Normal 11.7-14.4 [facility] Comment on above: Performed By: #### C BC1 #### [place] [address] Hematocrit (Bld) [Volume fraction] 36.1 % Normal 34.1-44.9 [facility] Comment on above: Performed By: #### C BC1 #### [place] [address] Hemoglobin (Bld) [Mass/Vol] 12.0 g/dL Normal 11.2-15.7 [facility] Comment on above: Performed By: #### C BC1 #### [place] [address] MCH (RBC) [Entitic mass] 29.6 pg Normal 25.6-32.2 [facility] Comment on above: Performed By: #### C BC1 #### [place] [address] MCHC (RBC) [Mass/Vol] 33.2 % Normal 31.6-34.8 [facility] Comment on above: Performed By: #### C BC1 #### [facility] [address] [place] [address] MCV (RBC) [Entitic vol] 89.1 fL Normal 79.4-94.8 [facility] Comment on above: Performed By: #### C BC1 #### [place] [address] Platelet mean volume (Bld) [Entitic vol] 11.8 fL Normal 9.4-12.3 [facility] Comment on above: Performed By: #### C BC1 #### [place] [address] Platelets (Bld) [#/Vol] 179 thou/cmm Low 182-369 [facility] Comment on above: Performed By: #### C BC1 #### [place] [address] RBC (Bld) [#/Vol] 4.05 mil/cmm Normal 3.93-5.22 [facility] Comment on above: Performed By: #### C BC1 #### [place] [address] RDW SD 46.3 fl Normal 36.4-46.3 [facility] Comment on above: Performed By: #### C BC1 #### [place] [address] WBC (Bld) [#/Vol] 8.27 thou/cmm Normal 3.98-10.04 [facility] Comment on above: Performed By: #### C BC1 #### [place] [address] Pap,Cyto Gynon 01-06-2019 Pap,Cyto Short Story Writer Test performed at [place] [address] NAME: BETSY MESA REQUESTING: EKTA SANCHEZ CNM SPECIMEN: TP [...] 03, 2019 Page 1 of 1 Normal [facility] Comment on above: Performed By: #### T &S #### [place] [address] RPRon 01-06-2019 Reagin Ab RPR Ql (S) Non-reactive Normal Nonreactive A [facility] Comment on above: Performed By: #### R MA #### [place] [address] Type and Screenon 01-06-2019 ABO group Nom (Bld) O Normal [facility] Comment on above: Performed By: #### T &S #### [place] [address] Comment Out Patient Normal [facility] Comment on above: Performed By: #### T &S #### [place] [address] RH Type Positive Normal [facility] Comment on above: Performed By: #### T &S #### [place] [address] HCG,Totalon 12-19-2018 HCG Qn 201783.0 m[IU]/mL Normal [facility] Comment on above: Result Comment: Male < or = 1 Non- female 1-3 Gestational Age: 0.2-1 Week 5 - 50 1-2 Weeks 50 - 500 2-3 Weeks 100 - 5000 3-4 Weeks 500 - 58685 4-5 weeks 1000 - 89398 5-6 weeks [address]888 - 100,000 6-8 weeks 53227 - 200,000 2-3 months 80525 - 100,000 Performed By: #### H CG #### [facility] [address] [place] [id number] GROUP B BETA STREP SCREENon 08-10-2017 GROUP B BETA STREP SCREEN SPECIMEN NUMBER: [id number] Normal [facility] Comment on above: Result Comment: GROU P B BETA STREP SCREEN REPORT STATUS: FINAL SITE/TYPE: RECTAL/VAGINAL CULTURE RESULT(S): NO GROUP B STREPTOCOCCUS ISOLATEDPathology Laboratories, [facility]. [address] [place], [place] [address]Laboratory Director: Nimesh Colon M.D.CLIA No. [id number] [facility] Accreditation No. [id number] HEMOGLOBIN ELECTROPHORESISon 05-08-2017 Hemoglobin mass conc (Bld) [...] Test performed at [facility] [address] [place] [address] CLIA Number [id number] [facility] Accreditation Number [id number] CBC W/AUTO DIFFon 05-04-2017 % NEUTROPHILS 61.4 [...] Erythrocytes (RBC) 3.20 10*6/uL Low 4.00-5.50 [facility] Hematocrit (HCT) 29.0 % Low 36.0-48.0 [facility] Hemoglobin mass conc (Bld) 9.5 g/dL Low 12.0-16.0 [facility] Lymphocytes 2.6 10*3/uL Normal 0.8-5.2 [facility] Lymphocytes/100 leukocytes 29.1 % Normal [facility] MCH 29.7 pg Normal 27.0-34.0 [facility] MCHC mass conc (RBC) 32.8 g/dL Normal 31.0-36.0 [facility] MCV 90.6 fL Normal 80.-100. [facility] Monocytes 0.7 10*3/uL Normal 0.1-0.9 [facility] Monocytes/100 leukocytes 7.6 % Normal [facility] Neutrophils 5.4 10*3/uL Normal 1.3-9.1 [facility] Platelets 198 10*3/uL Normal 150.-450. [facility] WBC (Leukocytes) 8.8 10*3/uL Normal 3.7-10.8 [facility] CHLAMYDIA/N. GONORRHOEAE/T. VAGINALIS, AMPLIFIED PROBEon 05-04-2017 CHLAM TRACHOMATIS rRNA: Negative Normal NEGATIVE [facility] NEISS GONORRHOEAE rRNA Negative Normal NEGATIVE [facility] SOURCE: VAGINA Normal [facility] TRICH VAGINALIS rRNA Negative Normal NEGATIVE [facility] Comment on above: Result Comment: Lilliana y methodology is nucleic acid amplification by airport planner mediated amplification (TMA) utilizing the Aptima Combo 2 Assay. GLUCOSEon 05-04-2017 Glucose mass conc 114 mg/dL High 70-[facility] Comment on above: Result Comment: DIAG NOSTIC THRESHOLDS FOR DIABETES AND IMPAIRED FASTING GLUCOSE (IFG) FASTING PLASMA GLUCOSE NORMAL <100 MG/DL IFG 100-125 MG/DL DIABETES >/= 126 MG/DL GLUCOSE, POST GLUCOLAon 10-0 DRAW TIME 1 HOUR POST-GLUCOLA [facility] Comment on above: Result Comment: DIAG NOSTIC THRESHOLDS FOR DIABETES AND IMPAIRED GLUCOSE TOLERANCE(IGT) USING ORAL GLUCOSE TOLERANCE TEST: 2-HOUR PLASMA GLUCOSE NORMAL <140 MG/DL IGT 140-199 MG/DL DIABETES >/= 200 MG/DLPathology Laboratories, [facility] [address] [place], [place] [address]Laboratory Director: David Benitez M.D.IA No. [id number] [facility] Accreditation No. [id number] Glucose mass conc 108 mg/dL Normal <140 [facility] CYSTIC FIBROSIS GENOTYPE, 13 9 MUTATIONSon 04-05-2017 CF 139 INTERPRETATION Negative Normal Pat [employer] [facility] MUTATION 1 Not Detected Normal [facility] POSITIVE FAMILY HISTORY? No [facility] SOURCE Blood Normal [facility] Comment on above: Result Comment: Inte rpretation: This patient is negative for the cystic fibrosismutations analyzed, including the 23 mutations recommended forscreening by the [employer] and [facility] of Obstetrics and Gynecology. This result does not rule outthe possibility that this individual could be a carrier of a mutationnot detected by this test. This test detects approximately 95.4% ofCF causing mutations based on the CFTR2 database (February 2013).Appropriate genetic counseling is recommended. The following tableprovides probability data to be used in the genetic counselingof this individual:Ethnicity Prior Risk Revised Risk ------- 1 in 28 1 in 588 (0.2%)Ashkenazi Synagogue 1 in 29 1 in 610 (0.2%) [...] including the 23 mutations recommended by the [facility] of Obstetrics and Gynecology, by next-generation sequencingusing the Illumina [employer] Cystic Fibrosis assay. Reference sequenceis [id number]. The following mutations were analyzed:[id number] c.1A>G c.115C>T c.178G>Tc.200C>T c.223C>T c.254G>A c.262_263delTT c.273+1G>Ac.274-1G>A [...] c.3302T>A c.3310G>T c.3472C>Tc.3484C>T c.3528delC c.3587C>G c.3611G>A c.3612G>Ac.3659delC c.3717+95471J>T c.3731G>A c.3744delA c.3752G>Ac.3773_3774insT c.3846G>A c.3873+1G>A c.3884_3885insT c.3909C>Gc.3937C>T c.3964-78_4242+577del c.4077_4080delTGTTinsAA c.4251delAConditionally reported variants:c.1210-12T[5_9] c.1516A>G c.1519A>G c.1523T>GElectronically Signed by David Nash M.D. Test performed at [facility] [address] [place] [address], [address] [place] [address] Burlap Spreader: David Nash M.D. CLIA Number [id number] [facility] Accreditation Number [id number] TESTING LOCATION Normal [facility] Comment on above: Result Comment: Test performed at [facility] [address] [address] CLIA Number [id number] HEMOGLOBIN ELECTROPHORESISon 04-03-2017 Hemoglobin mass conc (Bld) 2.7 % Normal 1.6-3.7 [facility] Hemoglobin mass conc (Bld) 97.3 % Normal 95.0-98.5 [facility] Hemoglobin mass conc (Bld) NONE DETEC Normal NONE DETECTED [facility] Hemoglobin mass conc (Bld) NONE Normal NONE DETECTED [facility] Hemoglobin mass conc (Bld) 0.0 % Normal 0.0-2.0 [facility] Hemoglobin S presence NONE Normal NONE DETECTED [facility] PATHOLOGIST'S INTERPRETATION Normal [facility] Comment on above: Result Comment: NO A BNORMAL HEMOGLOBINS IDENTIFIED. VITOR RUSSELL M.D. Test performed at [facility] [address] [place] [address] CLIA Number [id number] [facility] Accreditation Number [id number] QUADRUPLE SCREENING TEST LAWRENCE DE LA ROSAon 04-03-2017 Calc Trisomy 18 risk 1:41019 Normal Path [facility] DETERMINED BY: LMP Normal [facility] [...] Inc DS/T21 risk age alone 1:1141 Normal Pat [facility] Neural tube defect interpreta Normal [facility] Comment on above: Result Comment: --- NORMAL [...] a normal . Neural tube defect risk 1:84743 [facility] AFP 38.8 NG/ML Normal [facility] INHIBIN A 211 PG/ML Normal [facility] Comment on above: Result Comment: Test performed at [facility] [address] [place] [address] CLIA Number [id number] [facility] Accreditation Number [id number] UE3 2.00 NG/ML Normal [facility] Trisomy 18 risk interpretatio Normal [facility] Comment on above: Result Comment: ---N ORMAL - NOT AT INCREASED RISK --- (Screen cutoff is 1:100) Note that this is a screening test only. Normal results are not a guarantee of a normal . -------- ---- Normal [facility] ADJUST AFP M.O.M. 0.718 M.O.M. [facility] ADJUST HCG M.O.M. 1.694 M.O.M. Normal [facility] ADJUST INHIBIN A M.O.M. 0.788 M.O.M. Normal [facility] ADJUST UE3 M.O.M. 1.275 M.O.M. Normal [facility] DATE OF 1995 [facility] DATE OF LMP 11/11/16 Normal [facility] DOWN SYND/TRISOMY 21 RISK NOT INCREASED [facility] FAMILY HISTORY OF NTD NO Normal [facility] GESTATIONAL AGE 19.6 WEEKS Normal [facility] HCG Qn 37.6 IU/ML [facility] INITIAL/REPEAT INITIAL Normal [facility] INSULIN DEP. DIABETIC NO Normal [facility] INTERPRETATION: Negative Normal [facility] Comment on above: Result Comment: SCRE EN NEGATIVE FOR OPEN NEURAL TUBE DEFECT. SCREEN NEGATIVE FOR DOWN SYNDROME. SCREEN NEGATIVE FOR TRISOMY 18. SEE ANALYSIS BELOW FOR SPECIFIC RISK ASSESSMENT. NEURAL TUBE DEFECT RISK NOT INCREASED Normal [facility] NUMBER OF GESTATIONS 1 Normal [facility] RACE BLACK Normal [facility] SMOKER? YES Normal [facility] TRISOMY 18 ASSESSMENT NOT INCREASED Normal [facility] Weight 78.9264 kg Normal [facility] VARICELLA ZOSTER IGGon 04-03 VARICELLA ZOSTER IGG 477 INDEX Normal SEE BELOW Path [facility] Comment on above: Result Comment: INTE RPRETATION [...] Test performed at [facility] [address] [place] [address] CLIA Number [id number] [facility] Accreditation Number [id number] [facility] [address] [id number] Director: David Benitez M.D.CLIA No. [id number] [facility] Accreditation No. [id number] PROFILE 2 017 ABO group O Normal [facility] Comment on above: Result Comment: Test performed at [address] [address] CLIA NUMBER [id number] ANTIBODY SCREEN Negative Normal NEGATIVE [facility] Comment on above: Result Comment: Test performed at [address] [address] CLIA NUMBER [id number] Rh type Positive Normal [facility] Comment on above: Result Comment: Test performed at [address] [address] CLIA NUMBER [id number] URINE CULTUREon 03-30-2017 Urine culture, bacteria SPECIMEN NUMBER: [id number] [facility] Comment on above: Result Comment: URIN E CULTURE REPORT STATUS: FINAL SITE/TYPE: CLEAN CATCH/MIDSTREAM CULTURE RESULT(S): NEGATIVE FOR URINARY TRACT PATHOGENS(i.e. no predominant organism present). GROWTH OF MIXED MARILU NOTED MOST CONSISTENT WITH CONTAMINATION. (i.e.skin marilu/distal urethral marilu). CHLAMYDIA/N. GONORRHOEAE/T. VAGINALIS, AMPLIFIED PROBEon 03-29-2017 CHLAM TRACHOMATIS rRNA: Negative Normal NEGATIVE [facility] NEISS GONORRHOEAE rRNA Negative Normal NEGATIVE [facility] SOURCE: VAGINA Normal [facility] TRICH VAGINALIS rRNA Positive Abnormal NEGATIVE Path [facility] Comment on above: Result Comment: Asher araujo methodology is nucleic acid amplification by airport planner mediated amplification (TMA) utilizing the Aptima Combo 2 Assay. HIV-1,2 COMBO AG/ABon 2016 HIV-1,2 COMBO AG/AB NON-REACTIVE Normal NON-REACTIVE [facility] PROFILE 2on 017 RUBELLA IGG 13.3 IU/ml Normal [facility] Comment on above: Result Comment: TODD MMUNE.............. [...] HEPATITIS B SURFACE AG Negative Normal NEGATIVE [facility] RPR SCREEN NON-REACTIVE Normal NON-REACTIVE [...] Erythrocytes (RBC) 3.59 10*6/uL Low 4.00-5.50 [facility] Hematocrit (HCT) 30.9 % Low 36.0-48.0 [facility] Hemoglobin mass conc (Bld) 10.3 g/dL Low 12.0-16.0 [facility] Lymphocytes 2.2 10*3/uL Normal 0.8-5.2 [facility] Lymphocytes/100 leukocytes 32.5 % Normal [facility] MCH 28.7 pg Normal 27.0-34.0 [facility] MCHC mass conc (RBC) 33.3 g/dL Normal 31.0-36.0 [facility] MCV 86.1 fL Normal 80.-100. [facility] Monocytes 0.5 10*3/uL Normal 0.1-0.9 [facility] Monocytes/100 leukocytes 6.8 % Normal [facility] Neutrophils 3.9 10*3/uL Normal 1.3-9.1 [facility] Platelets 186 10*3/uL Normal 150.-450. [facility] WBC (Leukocytes) 6.7 10*3/uL Normal 3.7-10.8 [facility] TOTAL HCGon 03-29-[place] [address].0 m[IU]/mL Normal [facility] Comment on above: Result Comment: TOTA [...] Vital Sign Value Performing Clinician Daniel alexander 02-05-2025 02:56-0400 Body temperature 97.4 [degF] No Primary Care Physician [facility] 02-05-2025 02:56-0400 Diastolic blood pressure 83 mm[Hg] No Primary Care Physician [facility] 02-05-2025 02:56-0400 Heart rate 68 /min No Primary Care Physician [facility] 02-05-2025 02:56-0400 Respiratory rate 16 /min No Primary Care Physician [facility] 02-05-2025 02:56-0400 SaO2% (BldA) [Mass fraction] 99 % No Primary Care Physician [facility] 02-05-2025 02:56-0400 Systolic blood pressure 125 mm[Hg] No Primary Care Physician [facility] 02-05-2025 01:12-0400 Body height 177.8 cm No Primary Care Physician [facility] 02-05-2025 01:12-0400 Body mass index (BMI) [Ratio] 33.3 kg/m2 No Primary Care Physician [facility] 02-05-2025 01:12-0400 Body weight 105.2 kg No Primary Care Physician [facility] 01-12-2025 01:55-0400 Body temperature 98.1 [degF] No Primary Care Physician [facility] 01-12-2025 01:55-0400 Diastolic blood pressure 73 mm[Hg] No Primary Care Physician [facility] 01-12-2025 01:55-0400 Heart rate 78 /min No Primary Care Physician [facility] 01-12-2025 01:55-0400 Respiratory rate 14 /min No Primary Care Physician [facility] 01-12-2025 01:55-0400 SaO2% (BldA) [Mass fraction] 100 % No Primary Care Physician [facility] 01-12-2025 01:55-0400 Systolic blood pressure 122 mm[Hg] No Primary Care Physician [facility] 01-11-2025 21:48-0400 Body height 177.8 cm No Primary Care Physician [facility] 01-11-2025 21:48-0400 Body mass index (BMI) [Ratio] 33.3 kg/m2 No Primary Care Physician [facility] 01-11-2025 21:48-0400 Body weight 105.23 kg No Primary Care Physician [facility] 09-30-2024 11:44-0500 Diastolic Blood Pressure Non-Invasive 93 mm[Hg] MARLENA FROMMELT DO [facility] 09-30-2024 11:44-0500 Heart rate 84 /min MARLENA FROMPrevalent NetworksT DO [facility] 09-30-2024 11:44-0500 Respiratory rate 16 /min MARLENA LUGOPrevalent NetworksT DO [facility] 09-30-2024 11:44-0500 Systolic Blood Pressure Non-Invasive 137 mm[Hg] MARLENA FROMMELT DO [facility] 09-30-2024 10:12-0500 Blood Pressure Location MARLENA FROMMELT DO [facility] 09-30-2024 10:12-0500 Blood Pressure Method MARLENA LUGOPrevalent NetworksT DO [facility] 09-30-2024 10:12-0500 Body temperature 97.88 [degF] MARLENA LUGOMELT DO [facility] 09-30-2024 10:12-0500 Diastolic Blood Pressure Non-Invasive 78 mm[Hg] MARLENA FROMMELT DO [facility] 09-30-2024 10:12-0500 Heart rate 94 /min MARLENA FROMMELT DO [facility] 09-30-2024 10:12-0500 Respiratory rate 18 /min MARLENA FROMMELT DO [facility] 09-30-2024 10:12-0500 Systolic Blood Pressure Non-Invasive 128 mm[Hg] MARLENA FROMMELT DO [facility] 05-06-2024 15:11-0400 Body mass index (BMI) [Ratio] 30.2 kg/m2 Leela Currie MD Work Phone: [facility] 05-06-2024 15:11-0400 Body weight 96.16 kg Leela Currie MD Work Phone: [facility] 05-06-2024 15:11-0400 Diastolic blood pressure 70 mm[Hg] Leela Currie MD Work Phone: [facility] 05-06-2024 15:11-0400 Heart rate 102 /min Leela Currie MD Work Phone: [facility] 05-06-2024 15:11-0400 Respiratory rate 18 /min Leela Currie MD Work Phone: [facility] 05-06-2024 15:11-0400 Systolic blood pressure 108 mm[Hg] Leela Currie MD Work Phone: [facility] 05-01-2024 13:45-0400 Body mass index (BMI) [Ratio] 30.49 kg/m2 Jose Plotts TAPE KELLER OPERATOR.CNM Work Phone: [facility] 05-01-2024 13:45-0400 Body weight 97.07 kg Jose Plotts TAPE KELLER OPERATOR.CNM Work Phone: [facility] 05-01-2024 13:45-0400 Diastolic blood pressure 70 mm[Hg] Jose Plotts TAPE KELLER OPERATOR.CNM Work Phone: [facility] 05-01-2024 13:45-0400 Systolic blood pressure 108 mm[Hg] Jose Plotts TAPE KELLER OPERATOR.CNM Work Phone: [facility] 04-28-2024 11:36-0400 Body height 178.4 cm Sushil Villanueva TAPE KELLER OPERATOR.DATA WAREHOUSE ANALYST Work Phone: [facility] 04-28-2024 11:36-0400 Body mass index (BMI) [Ratio] 30.72 kg/m2 Sushil Villanueva APRN.DATA WAREHOUSE ANALYST Work Phone: [facility] 04-28-2024 11:36-0400 Body weight 97.8 kg Sushil Villanueva TAPE KELLER OPERATOR.DATA WAREHOUSE ANALYST Work Phone: [facility] 04-28-2024 11:36-0400 Diastolic blood pressure 68 mm[Hg] Sushil Villanueva TAPE KELLER OPERATOR.DATA WAREHOUSE ANALYST Work Phone: [facility] 04-28-2024 11:36-0400 Systolic blood pressure 116 mm[Hg] Sushil Villanueva TAPE KELLER OPERATOR.DATA WAREHOUSE ANALYST Work Phone: [facility] 10-14-2023 22:57-0400 Body temperature 98.4 [degF] Speech Language Pathologist Prn [facility] 10-14-2023 22:57-0400 Body weight 104.326 Speech Language Pathologist Prn [facility] 10-14-2023 22:57-0400 Diastolic blood pressure 88 mm[Hg] Speech Language Pathologist Prn [facility] 10-14-2023 22:57-0400 Heart rate 94 /min Speech Language Pathologist Prn [facility] 10-14-2023 22:57-0400 Respiratory rate 16 /min Speech Language Pathologist Prn [facility] 10-14-2023 22:57-0400 SaO2% (BldA) [Mass fraction] 100 % Speech Language Pathologist Prn [facility] 10-14-2023 22:57-0400 Systolic blood pressure 141 mm[Hg] Speech Language Pathologist Prn [facility] 08-11-2023 13:10-0500 Body temperature 97.1 [degF] Speech Language Pathologist Prn [facility] 08-11-2023 13:10-0500 Body weight 102.058 Speech Language Pathologist Prn [facility] 08-11-2023 13:10-0500 Diastolic blood pressure 94 mm[Hg] Speech Language Pathologist Prn [facility] 08-11-2023 13:10-0500 Heart rate 91 /min Speech Language Pathologist Prn [facility] 08-11-2023 13:10-0500 Respiratory rate 16 /min Speech Language Pathologist Prn [facility] 08-11-2023 13:10-0500 SaO2% (BldA) [Mass fraction] 100 % Speech Language Pathologist Prn [facility] 08-11-2023 13:10-0500 Systolic blood pressure 126 mm[Hg] Speech Language Pathologist Prn [facility] 05-12-2023 03:52-0400 Heart rate 104 /min Speech Language Pathologist Prn [facility] 05-12-2023 03:47-0400 Body temperature 97.7 [degF] Speech Language Pathologist Prn [facility] 05-12-2023 03:47-0400 Body weight 97.795 Speech Language Pathologist Prn [facility] 05-12-2023 03:47-0400 Diastolic blood pressure 106 mm[Hg] Speech Language Pathologist Prn [facility] 05-12-2023 03:47-0400 Respiratory rate 18 /min Speech Language Pathologist Prn [facility] 05-12-2023 03:47-0400 SaO2% (BldA) [Mass fraction] 100 % Speech Language Pathologist Prn [facility] 05-12-2023 03:47-0400 Systolic blood pressure 148 mm[Hg] Speech Language Pathologist Prn [facility] 09-26-2022 23:37-0500 Respiratory rate 18 /min Marcelo Robles MD Work Phone: [facility] 09-26-2022 21:40-0500 SaO2% (BldA) [Mass fraction] 96 % Marcelo Robles MD Work Phone: [facility] 09-26-2022 20:45-0500 Diastolic blood pressure 93 mm[Hg] Marcelo Robles MD Work Phone: [employer] 09-26-2022 20:45-0500 Systolic blood pressure 135 mm[Hg] Marcelo Robles MD Work Phone: [facility] 09-26-2022 20:18-0500 Body height 170.2 cm Marcelo Robles MD Work Phone: [facility] 09-26-2022 20:18-0500 Body mass index (BMI) [Ratio] 33.05 kg/m2 Marcelo Robles MD Work Phone: [facility] 09-26-2022 20:18-0500 Body weight 95.71 kg Marcelo Robles MD Work Phone: [facility] 09-26-2022 20:04-0500 Body temperature 98.4 [degF] Marcelo Robles MD Work Phone: [facility] 09-26-2022 20:04-0500 Heart rate 114 /min Marcelo Robles MD Work Phone: [facility] 09-25-2022 14:15-0500 Diastolic blood pressure 81 mm[Hg] Tod Filmer [facility] 09-25-2022 14:15-0500 Heart rate 80 /min Tod Filmer [facility] 09-25-2022 14:15-0500 Respiratory rate 16 /min Tod Filmer [facility] 09-25-2022 14:15-0500 SaO2% (BldA) [Mass fraction] 98 % Tod Filmer [facility] 09-25-2022 14:15-0500 Systolic blood pressure 123 mm[Hg] Tod Filmer [facility] 09-25-2022 12:15-0500 Body temperature 96.9 [degF] Tod Filmer [facility] 09-25-2022 12:15-0500 Body weight 96.61 kg Tod Filmer [facility] 03-08-2022 10:00-0400 Heart rate 87 /min JOSSIE HAYES MD [facility] 03-08-2022 10:00-0400 Mean blood pressure 100 mm[Hg] JOSSIE HAYES MD [facility] 03-08-2022 10:00-0400 Systolic blood pressure 134 mm[Hg] JOSSIE HAYES MD [address] [place] [address] 03-08-2022 07:11-0400 Body temperature 98.06 [degF] JOSSIE HAYES MD [address] [place] [address] 03-08-2022 07:11-0400 Diastolic blood pressure 97 mm[Hg] JOSSIE HAYES MD [facility] 03-08-2022 07:11-0400 Heart rate 81 /min JOSSIE HAYES MD [facility] 03-08-2022 07:11-0400 Mean blood pressure 112 mm[Hg] JOSSIE HAYES MD [facility] 03-08-2022 07:11-0400 Respiratory rate 18 /min JOSSIE HAYES MD [facility] 03-08-2022 07:11-0400 Systolic blood pressure 141 mm[Hg] JOSSIE HAYES MD [facility] 03-08-2022 04:43-0400 Diastolic blood pressure 83 mm[Hg] JOSSIE HAYES MD [facility] 03-08-2022 04:43-0400 Heart rate 75 /min JOSSIE HAYES MD [address] [place] [address] 03-08-2022 04:43-0400 Mean blood pressure 101 mm[Hg] JOSSIE HAYES MD [address] [place] [address] 03-08-2022 04:43-0400 Respiratory rate 16 /min JOSSIE HAYES MD [address] [place] [address] 03-08-2022 04:43-0400 Systolic blood pressure 136 mm[Hg] JOSSIE HAYES MD [address] [place] [address] 03-07-2022 23:00-0400 Body temperature 98.42 [degF] JOSSIE HAYES MD [address] [place] [address] 03-07-2022 23:00-0400 Respiratory rate 16 /min JOSSIE HAYES MD [address] [place] [address] 03-07-2022 16:57-0400 Body temperature 98.6 [degF] JOSSIE HAYES MD [address] [place] [address] 03-05-2022 10:05-0400 Body height 177.8 cm JOSSIE HAYES MD [address] [place] [address] 03-05-2022 10:05-0400 Body weight 109.1 kg JOSSIE HAYES MD [address] [place] [address] 03-05-2022 10:05-0400 Body weight 34.51 kg/m2 JOSSIE HAYES MD [address] [place] [address] 01-18-2022 03:00-0400 Body temperature 98.06 [degF] MICHI VASSAS [facility] 01-18-2022 03:00-0400 Diastolic blood pressure 64 mm[Hg] MICHI VASSAS DO [facility] 01-18-2022 03:00-0400 Heart rate 79 /min MICHI VASSAS DO [facility] 01-18-2022 03:00-0400 Mean blood pressure 83 mm[Hg] MICHI VASSAS DO [facility] 01-18-2022 03:00-0400 Respiratory rate 16 /min MICHI VASSAS DO [facility] 01-18-2022 03:00-0400 Systolic blood pressure 120 mm[Hg] MICHI VASSAS DO [facility] 01-17-2022 23:00-0400 Body temperature 97.88 [degF] MICHI VASSAS DO [facility] 01-17-2022 23:00-0400 Diastolic blood pressure 79 mm[Hg] MICHI VASSAS DO [facility] 01-17-2022 23:00-0400 Heart rate 98 /min MICHI VASSAS DO [facility] 01-17-2022 23:00-0400 Mean blood pressure 94 mm[Hg] MICHI VASSAS DO [facility] 01-17-2022 23:00-0400 Respiratory rate 14 /min MICHI VASSAS DO [facility] 01-17-2022 23:00-0400 Systolic blood pressure 123 mm[Hg] MICHI VASSAS DO [facility] 01-17-2022 19:30-0400 Body temperature 98.06 [degF] MICHI VASSAS DO [facility] 01-17-2022 19:30-0400 Diastolic blood pressure 60 mm[Hg] MICHI VASSAS DO [facility] 01-17-2022 19:30-0400 Heart rate 99 /min MICHI VASSAS DO [facility] 01-17-2022 19:30-0400 Mean blood pressure 79 mm[Hg] MICHI VASSAS DO [facility] 01-17-2022 19:30-0400 Respiratory rate 16 /min MICHI VASSAS DO [facility] 01-17-2022 19:30-0400 Systolic blood pressure 118 mm[Hg] MICHI VASSAS DO [facility] 01-17-2022 17:06-0400 Body height 177.8 cm MICHI VASSAS DO [facility] 01-17-2022 17:06-0400 Body weight 110 kg MICHI VASSAS DO [facility] 01-17-2022 17:06-0400 Body weight 34.8 kg/m2 MICHI VASSAS DO [facility] 01-17-2022 14:42-0400 Body height 177.8 cm MICHI VASSAS DO [facility] 01-17-2022 14:42-0400 Body weight 110 kg MICHI VASSAS DO [facility] 01-17-2022 14:42-0400 Body weight 34.8 kg/m2 MICHI VASSAS DO [facility] 12-06-2021 15:54-0400 Body height 177.8 cm GATITO GARVEYVilynx DO [facility] 12-06-2021 15:54-0400 Body [facility] 12-06-2021 15:54-0400 Body weight 36.06 kg/m2 [facility] 08-07-2021 16:36-0500 Body temperature 98.06 [degF] NANDA TOLEDO DO [facility] 08-07-2021 16:36-0500 Diastolic blood pressure 87 mm[Hg] NANDA TOLEDO DO [facility] 08-07-2021 16:36-0500 Heart rate 95 /min NANDA TOLEDO DO [facility] 08-07-2021 16:36-0500 Respiratory rate 16 /min NANDA TOLEDO DO [facility] 08-07-2021 16:36-0500 Systolic blood pressure 129 mm[Hg] NANDA TOLEDO DO [facility] 05-18-2021 12:24-0400 Body temperature 98.24 [degF] DR JOSÉ MIGUEL MAGALLANES MD [facility] 05-18-2021 12:24-0400 Diastolic blood pressure 64 mm[Hg] DR JOSÉ MIGUEL MAGALLANES MD [facility] 05-18-2021 12:24-0400 Heart rate 78 /min DR JOSÉ MIGUEL MAGALLANES MD [facility] 05-18-2021 12:24-0400 Respiratory rate 18 /min DR JOSÉ MIGUEL MAGALLANES MD [facility] 05-18-2021 12:24-0400 Systolic blood pressure 103 mm[Hg] DR JOSÉ MIGUEL MAGALLANES MD [facility] 03-15-2021 22:43-0400 Diastolic blood pressure 77 mm[Hg] [...] Phone: 03-15-2021 20:20-0400 Body height 177.8 cm [facility] Work Phone: 03-15-2021 20:20-0400 Body mass index (BMI) [Ratio] 25.83 kg/m2 [employer] Work Phone: 03-15-2021 20:20-0400 Body weight 81.65 kg [employer] Work Phone: 03-07-2021 02:39-0400 Diastolic blood pressure 80 mm[Hg] Isreal Kincaid MD Work Phone: [employer] Work Phone: 03-07-2021 02:39-0400 Heart rate 99 /min Isreal Kincaid MD Work Phone: [employer] Work Phone: 03-07-2021 02:39-0400 Respiratory rate 16 /min [facility]aid MD [facility] Work Phone: 03-07-2021 02:39-0400 SaO2% (BldA) [Mass fraction] 100 % Isreal Knicaid MD Work Phone: [employer] Work Phone: 03-07-2021 02:39-0400 Systolic blood pressure 113 mm[Hg] Isreal Kincaid MD Work Phone: [facility] Work Phone: 03-07-2021 02:04-0400 Body height 177.8 cm Isreal Kincaid MD [facility] Work Phone: 03-07-2021 02:04-0400 Body mass index (BMI) [Ratio] 25.83 kg/m2 Isreal Kincaid MD Work Phone: [facility] Work Phone: 03-07-2021 02:04-0400 Body weight 81.65 kg Isreal Kincaid MD [facility] Work Phone: 03-07-2021 00:27-0400 Body temperature 98.4 [degF] Isreal Kincaid MD Work Phone: [facility] Work Phone: Encounters Encounter Date Encounter Type Care Provider Facility Start: 03-10-2025 End: 03-10-2025 ambulatory ARLINE CORADO TAPE KELLER OPERATOR-DATA WAREHOUSE ANALYST Facility:A Start: 03-09-2025 End: 03-10-2025 Emergency department patient visit ARLINE BABIN MICKIE Facility:[id number] Start: 02-18-2025 End: 02-18-2025 Emergency department patient visit DR MARIANNA BOYKIN MD [facility] Start: 02-18-2025 End: 02-18-2025 Emergency department patient visit ARLINE CORADO TAPE KELLER OPERATOR-DATA WAREHOUSE ANALYST Facility:[facility] Start: 02-05-2025 End: 02-05-2025 Emergency department patient visit No Primary Care Physician -Emergency Department Work Phone: Start: 01-11-2025 End: 01-12-2025 Emergency department patient visit No Primary Care Physician -Emergency Department Work Phone: Start: 09-30-2024 End: 09-30-2024 Emergency department patient visit MARLENA LOWERY DO [facility] Start: 09-03-2024 ambulatory ARLINE GOODWIN TAPE KELLER OPERATOR-DATA WAREHOUSE ANALYST Facility:[facility] Start: 08-22-2024 End: 08-22-2024 ambulatory ARLINE CORADO TAPE KELLER OPERATOR-DATA WAREHOUSE ANALYST Facility:D Start: 08-11-2024 Emergency department patient visit ARLINE CORADO Facility:[id number] Start: 08-08-2024 End: 08-08-2024 Emergency department patient visit No Primary Care Physician Facility:[facility] Start: 07-17-2024 End: 07-17-2024 Emergency department patient visit Oseas Aviles Facility:[facility] Start: 07-12-2024 End: 07-12-2024 Emergency department patient visit No Primary Care Physician Facility:[facility] Start: 06-16-2024 End: 06-16-2024 Emergency department patient visit Nelson Ulloa Facility:[facility] Start: 05-18-2024 End: 05-18-2024 Emergency department patient visit No Primary Care Physician Facility:[facility] Start: 05-08-2024 End: 05-08-2024 Emergency department patient visit MARLO ROSA M Facility:[facility] Start: 05-06-2024 End: 05-06-2024 Patient encounter procedure Leela Currie MD Work Phone: OB/Gynecology Comment on above: Incomplete (Primary Dx); Threatened miscarriage Start: 05-06-2024 End: 05-06-2024 ambulatory SUSHIL VILLANUEVA Facility:[facility] Start: 05-05-2024 End: 05-05-2024 Emergency department patient visit ARLINE CORADO APRN-DATA WAREHOUSE ANALYST Facility:A Start: 05-02-2024 End: 05-07-2024 Telephone encounter Jose Aranda APRN.CNErick Work Phone: OB/Gynecology Comment on above: Results Start: 05-01-2024 End: 05-01-2024 ambulatory SUSHIL VILLANUEVA OB/Gynecology Start: 05-01-2024 End: 05-01-2024 Patient encounter procedure Jose Aranda TAPE KELLER OPERATOR.CNM Work Phone: OB/Gynecology Comment on above: Positive t est (Primary Dx); Threatened miscarriage; with uncertain dates in first trimester; Spotting affecting in first trimester Start: 04-28-2024 End: 04-28-2024 ambulatory SUSHIL VILLANUEVA Facility:[facility] Start: 04-28-2024 End: 04-28-2024 Patient encounter procedure Sushil Villanueva TAPE KELLER OPERATOR.DATA WAREHOUSE ANALYST Work Phone: OB/Gynecology Comment on above: with uncer tain viability, single or unspecified fetus (Primary Dx); with uncertain dates in first trimester Start: 04-05-2024 End: 04-05-2024 ambulatory No Primary Care Physician Facility:[facility] Start: 04-03-2024 End: 04-03-2024 Emergency department patient visit René Mohan Facility:[facility] Start: 03-15-2024 End: 03-19-2024 ambulatory HIRA LANGLEY MD Facility:A Start: 03-15-2024 End: 03-15-2024 ambulatory HIRA LANGLEY MD Facility:A Start: 02-19-2024 End: 02-19-2024 ambulatory ARLINE Suarez MICKIE DIEHLN-DATA WAREHOUSE ANALYST Facility:A Start: 02-19-2024 End: 02-19-2024 Patient encounter procedure ARLINE CORADO TAPE KELLER OPERATOR-DATA WAREHOUSE ANALYST [facility] Start: 02-05-2024 End: 02-09-2024 ambulatory ABDI SURYA TAPE KELLER OPERATOR-DATA WAREHOUSE ANALYST Facility:A Start: 01-29-2024 End: 01-29-[address] JOSÉ MIGUEL MAGALLANES MD Facility:A Start: 01-15-2024 End: 01-15-2024 ambulatory MARCELO ISBELL DO Facility:A Start: 01-01-2024 End: 01-05-2024 ambulatory ERLINDA WILLINGHAM PA-C Facility:A Start: 01-01-2024 End: 01-01-2024 ambulatory ERLINDA WILLINGHAM PA-C Facility:A Start: 12-09-2023 Emergency department patient visit Facility:[facility] Start: 12-09-2023 Admission to [facility] Gila Roth MD Work Phone: Neurosurgery Comment on above: Numbness (Primary Dx ) Start: 12-09-2023 Telemedicine consultation with patient Gila Roth MD Work Phone: Neurosurgery Start: 12-04-2023 End: 12-04-[address] JOSÉ MIGUEL MAGALLANES MD Facility:A Start: 12-04-2023 End: 12-08-[address] JOSÉ MIGUEL MAGALLANES MD Facility:A Start: 11-19-2023 End: 11-19-2023 ambulatory ABDI LONDON APRN-DATA WAREHOUSE ANALYST Facility:A Start: 11-05-2023 End: 11-05-[address] JOSÉ MIGUEL MAGALLANES MD Facility:A Start: 10-14-2023 End: 10-15-2023 Emergency department patient visit Speech Language Pathologist Prn [facility] Start: 08-29-2023 End: 08-29-2023 ambulatory ERLINDA WILLINGHAM PA-C Facility:A Start: 08-11-2023 End: 08-11-2023 Emergency department patient visit Speech Language Pathologist Prn [facility] Start: 05-12-2023 End: 05-12-2023 Emergency department patient visit Speech Language Pathologist Prn [facility] Start: 02-13-2023 End: 02-13-2023 Emergency department patient visit Speech Language Pathologist Prn [facility] Start: 09-26-2022 End: 09-27-2022 Emergency department patient visit MARCELO ROBLES [facility] Start: 09-26-2022 End: 09-26-2022 Emergency department patient visit Marcelo Robles MD Work Phone: [facility] ED Comment on above: Hypertension, unspec ified type (Primary Dx) Start: 09-25-2022 End: 09-25-2022 Emergency department patient visit Alvin Pryor [facility] Start: 03-05-2022 End: 03-08-2022 Evaluation and management of inpatient JOSSIE HAYES MD [facility] Start: 01-17-2022 End: 01-18-2022 Observation MICHI LEONARD DO [facility] Start: 12-26-2021 End: 12-26-2021 Subsequent hospital visit by physician ANNA GARCÍA Comment on above: RT LOWER LEG PAIN/TR IAGE Start: 12-06-2021 End: 12-06-2021 Patient encounter procedure GATITO ODOM DO [facility] Start: 11-29-2021 End: 11-29-2021 ambulatory NONE NONE Facility:[facility] Start: 08-07-2021 End: 08-07-2021 Emergency department patient visit NANDA Gutierrez PARIS DO [facility] Start: 05-18-2021 End: 05-18-2021 Emergency department patient visit DR JOSÉ MIGUEL MAGALLANES MD [facility] Start: 03-15-2021 End: 03-15-2021 Emergency department patient visit [facility] Dept Comment on above: Cough (Primary Dx); Vaginal discharge Start: 03-07-2021 End: 03-07-2021 Emergency department patient visit Isreal Kincaid MD Work Phone: [facility] Emergency Dept Comment on above: Ecstasy abuse (HCC) (Primary Dx); Acute cystitis with hematuria Procedures Date Procedure Procedure Detail Performing Clinician Start: 01-11-2025 CT of head without contrast No Primary Care Physician Start: 01-11-2025 Estimated creatinine clearance No Primary Care Physician Start: 05-01-2024 Us pelvic nonobstetr ic real-time image complete Sushil Villanueva APRN.DATA WAREHOUSE ANALYST Work Phone: Start: 04-28-2024 Antibody screen SUSHIL H BRIONNA Comment on above: Order Comment: Speci men Type: BLOOD SPECIMEN Ordering Facility: [facility] Address: [address] [place] [address] Performed By: #### T SPN #### CC MAIN BLOOD BANK [facility] [id number] [address] [place] [address] [place] Start: 04-28-2024 Us uterus l imited 1/ fetuses Sushil Villanueva APRN.DATA WAREHOUSE ANALYST Work Phone: Start: 10-14-2023 Microscopic urinalysis Speech Language Pathologist Prn Start: 08-11-2023 Lumbar puncture usin g fluoroscopic guidance Speech Language Pathologist Prn Start: 08-11-2023 Microscopic urinalysis Speech Language Pathologist Prn Start: 05-12-2023 CT of head without contrast Speech Language Pathologist Prn Start: 05-12-2023 Lumbar puncture usin g fluoroscopic guidance Speech Language Pathologist Prn Start: 05-12-2023 Microscopic urinalysis Speech Language Pathologist Prn Start: 02-13-2023 Plain chest X-ray On Ca ll Start: 02-13-2023 Ultrasonography of deep vein Speech Language Pathologist Prn Start: 09-26-2022 Ct thorax w/contrast material Serena Kelly DO Work Phone: Start: 09-26-2022 End: 09-26-2022 Basic metabolic panel calcium total Serena Kelly DO Work Phone: Start: 09-25-2022 Plain chest X-ray Tod F ilmer Start: 09-25-2022 US scan venography o f upper limbs Tod Filmer Start: 03-15-2021 Radiologic exam ches t single view Carlitos English TAPE KELLER OPERATOR - DATA WAREHOUSE ANALYST Work Phone: Start: 03-07-2021 Urnls dip stick/tabl et rgnt auto w/o microscopy Sherin Dawkins TAPE KELLER OPERATOR - DATA WAREHOUSE ANALYST Work Phone: Start: 03-07-2021 Basic metabolic pane l calcium total Sherin Dawkins TAPE KELLER OPERATOR - DATA WAREHOUSE ANALYST Work Phone: Start: 03-07-2021 Ecg routine ecg w/le ast 12 lds w/i&r Isreal Kincaid MD Work Phone: Start: 01-06-2019 Antibody screen Comment on above: Performed By: #### T &S #### [place] [phone] None (qualifier value) DR CARROLL MAGALLANES MD Plan of Treatment Date Care Activity Detail Author Start: 2070 RSV Vaccine (1 - 1-d ose 75+ series) RSV Vaccine (1 - 1-dose 75+ series) [facility] Start: 06-18-2029 Urine microalbumin profile DTaP,Tdap,Td Vaccine (9 - Td or Tdap) [facility] Start: 02-05-2025 [facility] Start: 02-05-2025 CT of head without contrast Brain/Head without Contrast [facility] Start: 02-05-2025 CT Unspecified body region WO contrast [facility] Start: 01-12-2025 [facility] Start: 05-29-2024 DTaP/Tdap/Td vaccine (2 - Td or Tdap) DTaP/Tdap/Td vaccine (2 - Td or Tdap) [facility] Start: 05-26-2024 End: 05-26-2024 Patient encounter procedure 05/26/2024 1:10 PM EDT Routine Office Visit OB/Gynecology [address] [place] [address] Cheryl Ricardo MD [address] [place] [address] NEw OB LMP 02/19 ?? OB/Gynecology Comment on above: NEw OB LMP 02/19 ?? Start: 05-14-2024 End: 05-14-2024 Patient encounter procedure 05/14/2024 1:30 PM EDT Office Visit OB/Gynecology [address] [place] [address] Leela Currie MD [address] [place] [address] IPAS f/u OB/Gynecology Comment on above: IPAS f/u Start: 05-06-2024 End: 05-06-2024 Patient encounter procedure 05/06/2024 2:30 PM EDT Routine Office Visit OB/Gynecology [address] [place] [address] Leela Currie MD [address] [place] [place] [address] OB Routine OB/Gynecology Comment on above: OB Routine Start: 05-06-2024 End: 08-05-2024 CBC panel - Blood by Automated count COMPLETE BLOOD COUNT Lab Routine Threatened miscarriage Expected: 05/06/2024, Expires: 08/05/2024 [facility] Work Phone: Comment on above: Expected: 05/06/2024 , Expires: 08/05/2024 Start: 05-01-2024 End: 05-01-2024 Patient encounter procedure 05/01/2024 1:30 PM EDT Office Visit OB/Gynecology [address] [place] [address] Jose Aranda APRN.CNM [address] [place] [address] [place] follow up OB/Gynecology Comment on above: US follow up Start: 05-01-2024 End: 05-01-2024 ambulatory 05/01/2024 1:00 PM EDT Procedure OB/Gynecology [address] [place] [address] with uncertain dates in first trimester [Z34.91] OB/Gynecology Comment on above: with uncer tain dates in first trimester [Z34.91] Start: 04-28-2024 End: 07-28-2024 Hemoglobin A1c in Blood [facility] Comment on above: Expected: 04/28/2024 , Expires: 07/28/2024 Start: 04-28-2024 End: 07-28-2024 TYPE + SCREEN [facility] Comment on above: Expected: 04/28/2024 , Expires: 07/28/2024 Start: 04-28-2024 End: 04-28-2025 US Pelvis PELVIC US [facility] Anc Imaging Routine with uncertain dates in first trimester Expected: 04/28/2024, Expires: 04/28/2025 [facility] Comment on above: Expected: 04/28/2024 , Expires: 04/28/2025 Start: 03-30-2024 Covid-19 Vaccine ( season) Covid-19 Vaccine () [facility] Start: 03-30-2024 Influenza vaccination [facility] Start: 07-30-2023 Behavioral Health Screening Behavioral Health Screening [facility] Start: 05-12-2023 Bacteria identified in Urine by Culture Urine Culture [facility] Start: 03-30-2023 Covid-19 Vaccine ( season) Covid-19 Vaccine ( season) [facility] Start: 03-30-2022 Influenza vaccination INFLUENZ A (Season Ended) [facility] Start: 02-27-2022 Influenza vaccination Flu vaccine (# 1) [facility] Start: 01-06-2022 PAP TESTING PAP TESTING [facility] Start: 01-06-2022 Screening for malign ant neoplasm of cervix [facility] Start: 03-30-2021 Influenza vaccination Flu vaccine (# 1) [facility] Work Phone: Start: 2016 Screening for malign ant neoplasm of cervix Pap smear [facility] Start: 2014 Urine microalbumin profile DTAP,TDAP,TD (1 - Tdap) [facility] Start: 2013 Anxiety Screening Anxiety Screening [facility] Start: 2013 Depression Screening Depression Scre ening [facility] Start: 2013 Hepatitis C screening Hepatitis C sc reen [facility] Start: 11-11-2012 HPV Vaccine (2 - 3-d ose series) HPV Vaccine (2 - 3-dose series) [facility] Start: 2010 HIV screening HIV screen [facility] Start: 2009 PEDS TO ADULT TRANSITION ANNUAL ASSESSMENT PEDS TO ADULT TRANSITION ANNUAL ASSESSMENT [facility] Start: 2007 Adult depression screening assessment DEPRESSION SCREENING [facility] Start: 2007 COVID-19 Vaccine (1) COVID-19 Vaccin e (1) [facility] Work Phone: Start: 2007 Depression Screen Depression Screen [facility] Start: 2007 PEDS TO ADULT TRANSITION INITIAL DISCUSSION PEDS TO ADULT TRANSITION INITIAL DISCUSSION [facility] Start: 2006 HPV VACCINE (1 - 2-d ose series) HPV VACCINE (1 - 2-dose series) [facility] Start: 2001 PNEUMOCOCCAL (1 - PCV) PNEUMOCOCCAL (1 - PCV) [facility] Start: 2000 COVID-19 VACCINE (#1) COVID-19 VACCI NE (#1) [facility] Start: 1996 Varicella vaccine (1 of 2 - 2-dose childhood series) Varicella vaccine (1 of 2 - 2-dose childhood series) [facility] Start: 1995 COVID-19 Vaccine (#1) COVID-19 Vacci ne (#1) [facility] Bacteria identified in Urine by Culture URINE CULTURE Microbiology Routine with uncertain dates in first trimester 04/28/2024 12:14 PM EDT [facility] End: 03-15-2021 C. Trachomatis / N. Gonorrhoeae, DNA Probe C. Trachomatis / N. Gonorrhoeae, DNA Probe Microbiology STAT One Time for 1 Occurrences starting 03/15/2021 until 03/15/2021 [email or web address] Work Phone: Comment on above: One Time for 1 Occur rences starting 03/15/2021 until 03/15/2021 C. Trachomatis / N. Gonorrhoeae, DNA Probe C. Trachomatis / N. Gonorrhoeae, DNA Probe Microbiology STAT 03/15/2021 9:34 PM EDT [facility] Work Phone: End: 04-28-2025 Choriogonadotropin.beta subunit [Units/volume] in Serum or Plasma HCG QUANTITATIVE Lab Routine with uncertain dates in first trimester 2x per week for 8 Occurrences starting 04/28/2024 until 04/28/2025 [facility] Work Phone: Comment on above: 2x per week for 8 Oc currences starting 04/28/2024 until 04/28/2025 Choriogonadotropin.b eta subunit [Units/volume] in Serum or Plasma HCG QUANTITATIVE Lab Routine with uncertain dates in first trimester 04/28/2024 12:12 PM EDT [facility] EKG 12 Lead EKG 12 Lead ECG STAT 03/07/2021 12:24 AM EDT [email or web address] Work Phone: Patient Education [facility] Patient referral [facility] Work Phone: End: 03-15-2021 Respiratory Panel, Molecular, with COVID-19 [...] Routine Threatened miscarriage 05/06/2024 4:56 PM EDT [facility] Immunizations Immunization Date Immunization Notes Care Provider Fa mary 06-18-2019 tetanus toxoid, redu jose diphtheria toxoid, and acellular pertussis vaccine, adsorbed ARLINE MICKIE TAPE KELLER OPERATOR-DATA WAREHOUSE ANALYST [facility] 02-18-2019 hepatitis A vaccine, adult dosage ARLINE MICKIE TAPE KELLER OPERATOR-DATA WAREHOUSE ANALYST [facility] 05-31-2014 pneumococcal polysaccharide vaccine, [address] JOSÉ MIGUEL MAGALLANES MD [facility] 05-29-2014 tetanus toxoid, redu jose diphtheria toxoid, and acellular pertussis vaccine, adsorbed DR JOSÉ MIGUEL MAGALLANES MD [facility] 10-14-2012 hepatitis A vaccine, pediatric dosage, unspecified formulation ARLINE MICKIE TAPE KELLER OPERATOR-DATA WAREHOUSE ANALYST [facility] 10-14-2012 Human Papillomavirus Quadval [employer] TAPE KELLER OPER[employer]File [facility] 10-14-2012 meningococcal polysaccharide (groups A, C, Y and W-135) diphtheria toxoid conjugate vaccine (MCV4P) ARLINE MICKIE TAPE KELLER OPERATOR-DATA WAREHOUSE ANALYST [facility] 10-14-2012 tetanus toxoid, redu jose diphtheria toxoid, and acellular pertussis vaccine, adsorbed ARLINE MICKIE TAPE KELLER OPERATOR-DATA WAREHOUSE ANALYST [facility] 03-21-2000 measles/mumps/rubell a virus vaccine ARLINE MICKIE TAPE KELLER OPERATOR-DATA WAREHOUSE ANALYST [facility] 03-21-2000 poliovirus vaccine, inactivated ARLINE MICKIE TAPE KELLER OPERATOR-DATA WAREHOUSE ANALYST [facility] 04-06-1998 hepatitis B pediatri c vaccine ARLINE MICKIE TAPE KELLER OPERATOR-DATA WAREHOUSE ANALYST [facility] 01-28-1997 measles/mumps/rubell a virus vaccine ARLINE MICKIE TAPE KELLER OPERATOR-DATA WAREHOUSE ANALYST [facility] 01-28-1997 poliovirus vaccine, inactivated ARLINE MICKIE TAPE KELLER OPERATOR-DATA WAREHOUSE ANALYST [facility] 1995 hepatitis B pediatri c vaccine ARLINE MICKIE TAPE KELLER OPERATOR-DATA WAREHOUSE ANALYST [facility] 1995 hepatitis B pediatri c vaccine ARLINE MICKIE TAPE KELLER OPERATOR-DATA WAREHOUSE ANALYST [facility] 1995 poliovirus vaccine, inactivated ARLINE MICKIE TAPE KELLER OPERATOR-DATA WAREHOUSE ANALYST [facility] 1995 poliovirus vaccine, inactivated ALRINE MICKIE TAPE KELLER OPERATOR-DATA WAREHOUSE ANALYST [facility] 1995 hepatitis B pediatri c vaccine ARLINE MICKIE TAPE KELLER OPERATOR-DATA WAREHOUSE ANALYST [facility] 1995 hepatitis B pediatri c vaccine ARLINE MICKIE TAPE KELLER OPERATOR-DATA WAREHOUSE ANALYST [facility] Payers Date Payer Category Payer Private Health Insurance [id number] 2023 Medicaid [id number] 2023 Private Health Insurance [id number] 2020 Private Health Insurance [facility] [id number] 07/30/2020-Present [phone] [address] [place] [address] [id number] 12-28-2018 Medicaid [facility] MEDICAID [facility] [employer] MEDICAID [id number] 12/28/2018-Present [phone] [address] [place] [address] Medicaid [id number]. [id number] 1995 Unknown [id number] 2.840.1.689796.3.579.2. 419 1995 Unknown [id number] 2..1.987811.3.579.2. 62 1995 Unknown [id number] .1.554636.3.579.2. 1995 Unknown [id number] 2840.1.117913.3.579.2. 62 1995 Unknown [id number] 2840.1.357556.3.579.2. 62 1995 Unknown [id number] 840.1.299128.3.579.2. 627 1995 Unknown [id number] 2840.1.239629.3.579.2. 62 1995 Unknown [id number] 2.16.840.1.269764.3.579.2. 627 1995 Unknown [id number] 2.840.1.405109.3.579.2. 1995 Unknown [id number] 2.840.1.864055.3.579.2. 1995 Unknown [id number] 2.840.1.531004.3.579.2. 1995 Unknown [id number] 2.840.1.087089.3.579.2. 1995 Unknown [id number] .840.1.557787.3.579.2. 1995 Unknown [id number] 2.840.1.325814.3.579.2. 1995 Unknown [id number] 2.840.1.239301.3.579.2. 1995 Unknown [id number] 2.840.1.107651.3.579.2. 1995 Unknown [id number] .840.1.773034.3.579.2. 1995 Unknown [id number] 2.840.1.203741.3.579.2. 1995 Unknown [id number] .840.1.454894.3.579.2. 1995 Unknown [id number] .840.1.552285.3.579.2. 1995 Unknown [id number] .840.1.414332.3.579.2. 1995 Unknown [id number] 2.840.1.596901.3.579.2. 627 07-30-1959 Self-pay Unknown [id number] 2840.1.530278.3.579.2. 630 Unknown [id number] 2.16.840.1.929876.3.579.2. 630 Unknown [id number] 2.16.840.1.928250.3.579.2. 630 Unknown [id number] 2.16.840.1.952216.3.579.2. 630 Unknown [id number] 2.16.840.1.372307.3.579.2. 462 Unknown [id number] 2.16.840.1.433812.3.579.2. 462 Unknown [id number] 2.16.840.1.139307.3.579.2. 462 Unknown [id number] 2.16.840.1.861204.3.579.2. 462 Unknown [id number] 2.16.840.1.874011.3.579.2. 462 Unknown [id number] 2.16.840.1.363057.3.579.2. 462 Unknown [id number] 2.16.840.1.014539.3.579.2. 462 Unknown [id number] 2.16.840.1.086151.3.579.2. 462 Unknown [id number] 2.16.840.1.203875.3.579.2. 462 Unknown [id number] 2.16.840.1.111616.3.579.2. 462 Social History Date Type Detail Facility Start: 02-19-2018 End: 09-10-2018 Tobacco smoking status [facility] Never smoker [facility] Start: 09-10-2018 End: 06-24-2023 Tobacco use and exposure Never used [facility] Start: 09-10-2018 End: 05-01-2024 Alcohol intake Current drinker of alcohol (finding) [facility] Work Phone: Start: 1995 Sex Assigned At Not on file S [employer] Work Phone: Start: 09-16-2022 End: 09-26-2022 Exposure to SARS-CoV-2 (event) Not sure [facility] Start: 05-19-2020 End: 08-22-2024 Light tobacco smoker (finding) [facility] Sex Assigned At [facility] Start: 12-19-2018 End: 02-05-2025 Tobacco smoking status NHIS Smokes tobacco daily [facility] Start: 10-22-2019 Alcohol intake Ex-drinker (finding) [facility] Start: 01-17-2022 End: 01-11-2025 Tobacco smoking status Ex-smoker (finding) [facility] History of tobacco use Current smoker [facility] History of tobacco use Cigarette Smoker [facility] Start: 06-24-2023 End: 04-28-2024 History of Social function [facility] Start: 06-24-2023 End: 04-28-2024 Tobacco use panel [facility] National Score (1-10 0), lower number is lower risk 75 [facility] Start: 06-08-2023 Alcohol Comment socially [facility] Has the [employer]!, [employer], or [employer] threatened to shut off services in your home in past 12Mo No [facility] (I/We) worried cailin er (my/our) food would run out before (I/we) got money to buy more. Never true [facility] Start: 12-20-2013 Sex Female (finding) [facility] Start: 1995 Sex Assigned At Female W [facility] Medical Equipment Procedure Code Equipment Code Equipment Origin al Text Equipment Identifier Dates TEST BLOOD SUGAR EVERY DAY Start: 2024 See Instructions , check BS daily, # 100 EA, 5 Refill(s), Pharmacy: [facility] #[id number], Type 2 diabetes mellitus, 178, cm, 03/15/24 14:17:00 EDT, Height, 104.8, kg, 03/15/24 14:17:00 EDT, Dosing Weight Start: 04-18-2024 See Instructions , BD VENANCIO 2 GEN PEN NDL [id number], # 100 EA, 5 Refill(s), Pharmacy: [facility] #[id number], 178, cm, 03/15/24 14:17:00 EDT, Height, 97, kg, 05/05/24 17:35:00 EDT, Dosing Weight Start: 05-12-2024 See Instructions , test BS daily, # 100 EA, 5 Refill(s), [id number], 177.8, cm, 02/19/24 15:03:00 EDT, Height, 93, kg, 02/05/24 15:51:00 EDT, Dosing Weight Start: 03-05-2024 See Instructions , check BS daily, # 100 EA, 5 Refill(s), [id number], Type 2 diabetes mellitus, 178, cm, 03/15/24 14:17:00 EDT, Height, 104.8, kg, 03/15/24 14:17:00 EDT, Dosing Weight Start: 04-18-2024 See Instructions , BD VENANCIO 2 GEN PEN NDL [id number], # 100 EA, 5 Refill(s), [id number], 178, cm, 03/15/24 14:17:00 EDT, Height, 97, kg, 05/05/24 17:35:00 EDT, Dosing Weight Start: 05-12-2024 See Instructions , test BS daily, # 100 EA, 5 Refill(s), Pharmacy: [facility] #[id number], 177.8, cm, 02/19/24 15:03:00 EDT, Height, 93, kg, 02/05/24 15:51:00 EDT, Dosing Weight Start: 03-05-2024 Functional Status Date Assessment Result Facility 09-30-2024 Functional Status Independent [facility] 09-30-2024 Functional Status ID band on, Allergy Band on, Call device within reach, Bed in low position, Wheels locked, Upper/Half-Length side-rails up, Visitor at bedside, Safety level maintained [facility] 03-08-2022 Functional Status Sitting in bed , Remains in NICU [facility] 03-08-2022 Functional Status [facility] 03-08-2022 Functional Status [facility] 2022 Functional Status [facility] 03-05-2022 Functional Status [facility] 03-05-2022 Functional Status [facility] 01-18-2022 Functional Status Ambulation in Room [facility] 01-17-2022 Functional Status Home independently [facility] 01-17-2022 Functional Status Rooming in [facility] 01-17-2022 Functional Status [facility] Mental Status Date Assessment Result Facility 01-11-2025 Cognitive function Voice/Name Debbie Spencer [facility] Work Phone: 09-30-2024 Mental Status Orientation Oriented x 4 [facility] 09-30-2024 [facility] Clinical Notes 03-07-2021 to 02-18-2025 Note Date & Type Note Facility 02-18-2025 Hospital Discharg e instructions Patient Education 02/18/2025 18:07:52 Ganglion Cyst Ganglion Cyst A ganglion cyst usually is a painless bump on the wrist or finger joint. It connects to the joint capsule and grows like a balloon on a stalk. It is filled with joint fluid. The cause of a ganglion cyst is not known. If the cyst puts pressure on a nearby nerve it may cause pain. Otherwise, cysts are painless and harmless. Most tend to disappear over time without treatment. Don't try to drain or break the cyst at home. This can cause harm and usually does not cure the problem. If you are having pain from the cyst, a temporary wrist splint may be helpful to limit wrist motion. If this does not help, the fluid can be removed from the cyst. This should shrink the size of the cyst. If this doesn t give relief, the ganglion can be removed by surgery. Home care If you are having wrist pain, use a wrist splint for 1 to 2 weeks at a time. You can buy one at many drug stores without a prescription. You may use fpfc-lld-bdpnanp pain medicine to control pain, unless another medicine was prescribed. If you have chronic liver or kidney disease or ever had a stomach ulcer or gastrointestinal bleeding, talk with your healthcare provider before using these medicines. If a needle was used to drain the cyst fluid or inject medicine into it, keep the site clean and covered with a bandage for the first 24 hours. If a pressure dressing was applied, leave it in place for the time advised. Follow-up care Follow up with your healthcare provider, or as advised. Make an appointment for a repeat exam if pain continues for more than 2 weeks in a wrist splint. When to seek medical advice Call your healthcare provider right away if any of these occur: Increasing pain in the wrist Redness or warmth over the cyst Fluid draining from the cyst Numbness or tingling in the hand or arm [phone] [employer] [address] [place] [address], [place] [address]. All rights reserved. This information is not intended as a substitute for professional medical care. Always follow your healthcare professional's instructions. 02/18/2025 18:03:58 Ganglion Cyst Ganglion Cyst A ganglion cyst usually is a painless bump on the wrist or finger joint. It connects to the joint capsule and grows like a balloon on a stalk. It is filled with joint fluid. The cause of a ganglion cyst is not known. If the cyst puts pressure on a nearby nerve it may cause pain. Otherwise, cysts are painless and harmless. Most tend to disappear over time without treatment. Don't try to drain or break the cyst at home. This can cause harm and usually does not cure the problem. If you are having pain from the cyst, a temporary wrist splint may be helpful to limit wrist motion. If this does not help, the fluid can be removed from the cyst. This should shrink the size of the cyst. If this doesn t give relief, the ganglion can be removed by surgery. Home care If you are having wrist pain, use a wrist splint for 1 to 2 weeks at a time. You can buy one at many drug stores without a prescription. You may use wmso-kif-chanjta pain medicine to control pain, unless another medicine was prescribed. If you have chronic liver or kidney disease or ever had a stomach ulcer or gastrointestinal bleeding, talk with your healthcare provider before using these medicines. If a needle was used to drain the cyst fluid or inject medicine into it, keep the site clean and covered with a bandage for the first 24 hours. If a pressure dressing was applied, leave it in place for the time advised. Follow-up care Follow up with your healthcare provider, or as advised. Make an appointment for a repeat exam if pain continues for more than 2 weeks in a wrist splint. When to seek medical advice Call your healthcare provider right away if any of these occur: Increasing pain in the wrist Redness or warmth over the cyst Fluid draining from the cyst Numbness or tingling in the hand or arm [phone] [employer] [address] [place] [address]. All rights reserved. This information is not intended as a substitute for professional medical care. Always follow your healthcare professional's instructions. Follow Up Care 02/18/2025 16:58:33 With:ARLINE CORADO Address: [address] [place] [phone] When:2-4 days With:THERESA TOLEDO MD, Orthopedic Address: [address] [place] [address] [facility] [place] [address]- [phone] When:2-4 days [facility] 02-18-2025 Note Discharge Instructions Thank you for allowing [facility] to assist you with your healthcare needs. The following is important discharge information regarding your hospital visit. Diagnosis from Today's Visit Ganglion cyst Wrist pain What to Do Next Instructions from Your Care Team Discharge Home Equipment - Ordered -- Splint, wrist Right, 1 month(s), 02/18/25 17:59:00 EDT Post Acute Orders No qualifying data available. You Need to Schedule the Following Appointments Follow Up with ARLINE CORADO When:Within 2-4 days Where:[address] [place] [phone] Follow Up with THERESA TOLEDO MD, Orthopedic When:Within 2-4 days Where:[address] [place] [address] [facility] [place] [address]- [phone] Allergies Vicodin Medications Please ask your primary doctor or pharmacist before taking any other medication not listed, including over the counter drugs, herbal medications, vitamins and or supplements as they may interact with your home medications. What How Much When Why Instructions Last Dose New naproxen (Anaprox-DS 550 mg oral tablet) 1 tab(s) by mouth Two (2) times a day as needed for as needed for pain Printed Prescription Unchanged acetaminophen (Tylenol) Unchanged DME (Blood Glucose Test Machine) See instructions Type 2 diabetes mellitus 1 glucometer Unchanged DME (Blood Glucose Test Strips) See instructions Type 2 diabetes mellitus check BS daily Unchanged DME (Dexcom G7 [place]) See instructions Type 2 diabetes mellitus Use [...] instructions BD VENANCIO 2 GEN PEN NDL [id number] Unchanged DME (Lancets) See instructions test BS daily Unchanged ferrous sulfate (ferrous sulfate 325 mg (65 mg elemental iron) oral delayed release tablet) 1 tab(s) by mouth Two (2) times a day Duration: 30 Days Unchanged ibuprofen (Advil) Unchanged metFORMIN (metFORMIN 500 mg oral tablet (IR)) 1 tab(s) by mouth Once a day Unchanged Misc Medication (DEXCOM G7 SENSOR) See instructions PLACE ONE SENSOR ON THE BACK OF THE UPPER ARM EVERY 10 DAYS. USE READER OR PHONE LISETTE FOR DAILY BLOOD SUGAR CHECKS Please take this list to your next doctor s visit. Bring all medications you take, including over the counter medications, herbals and other supplements with you to your doctor s visit. Patients and families are reminded to discard old lists and to update any records with all medication providers or retail pharmacies. Education [employer] Ganglion Cyst A ganglion cyst usually is a painless bump on the wrist or finger joint. It connects to the joint capsule and grows like a balloon on a stalk. It is filled with joint fluid. The cause of a ganglion cyst is not known. If the cyst puts pressure on a nearby nerve it may cause pain. Otherwise, cysts are painless and harmless. Most tend to disappear over time without treatment. Don't try to drain or break the cyst at home. This can cause harm and usually does not cure the problem. If you are having pain from the cyst, a temporary wrist splint may be helpful to limit wrist motion. If this does not help, the fluid can be removed from the cyst. This should shrink the size of the cyst. If this doesn t give relief, the ganglion can be removed by surgery. Home care If you are having wrist pain, use a wrist splint for 1 to 2 weeks at a time. You can buy one at many drug stores without a prescription. You may use okqw-tnm-iinpxef pain medicine to control pain, unless another medicine was prescribed. If you have chronic liver or kidney disease or ever had a stomach ulcer or gastrointestinal bleeding, talk with your healthcare provider before using these medicines. If a needle was used to drain the cyst fluid or inject medicine into it, keep the site clean and covered with a bandage for the first 24 hours. If a pressure dressing was applied, leave it in place for the time advised. Follow-up care Follow up with your healthcare provider, or as advised. Make an appointment for a repeat exam if pain continues for more than 2 weeks in a wrist splint. When to seek medical advice Call your healthcare provider right away if any of these occur: Increasing pain in the wrist Redness or warmth over the cyst Fluid draining from the cyst Numbness or tingling in the hand or arm [phone] [employer]. [address] [place] [address]. All rights reserved. This information is not intended as a substitute for professional medical care. Always follow your healthcare professional's instructions. Ganglion Cyst A ganglion cyst usually is a painless bump on the wrist or finger joint. It connects to the joint capsule and grows like a balloon on a stalk. It is filled with joint fluid. The cause of a ganglion cyst is not known. If the cyst puts pressure on a nearby nerve it may cause pain. Otherwise, cysts are painless and harmless. Most tend to disappear over time without treatment. Don't try to drain or break the cyst at home. This can cause harm and usually does not cure the problem. If you are having pain from the cyst, a temporary wrist splint may be helpful to limit wrist motion. If this does not help, the fluid can be removed from the cyst. This should shrink the size of the cyst. If this doesn t give relief, the ganglion can be removed by surgery. Home care If you are having wrist pain, use a wrist splint for 1 to 2 weeks at a time. You can buy one at many drug stores without a prescription. You may use viqj-nub-svztyls pain medicine to control pain, unless another medicine was prescribed. If you have chronic liver or kidney disease or ever had a stomach ulcer or gastrointestinal bleeding, talk with your healthcare provider before using these medicines. If a needle was used to drain the cyst fluid or inject medicine into it, keep the site clean and covered with a bandage for the first 24 hours. If a pressure dressing was applied, leave it in place for the time advised. Follow-up care Follow up with your healthcare provider, or as advised. Make an appointment for a repeat exam if pain continues for more than 2 weeks in a wrist splint. When to seek medical advice Call your healthcare provider right away if any of these occur: Increasing pain in the wrist Redness or warmth over the cyst Fluid draining from the cyst Numbness or tingling in the hand or arm [phone] [employer]. [address] [place] [address]. All rights reserved. This information is not intended as a substitute for professional medical care. Always follow your healthcare professional's instructions. Additional Information VACCINATE! IT SAVES LIVES! Members of the community who have not yet received the COVID-19 vaccine and would like to receive it can visit one of [facility] vaccine clinics. There are many vaccine clinic locations within the [facility]. For locations and available times, please visit [email or web address] It is important to note that some COVID mobile vaccine clinics are held outdoors and may be canceled in rainy or stormy conditions. To learn more about pediatric vaccinations (ages 5-11), we invite you to visit the [facility] webpage. [email or web address] To learn more about the COVID-19 vaccine, we invite you to visit the CDC website for a list of frequently asked questions. https://www.cdc.gov/coronavirus/ 2019-ncov/vaccines/faq.html [facility] Patient Portal Access Instructions: Stay connected with your healthcare team and access your personal medical information anytime with the [facility] Patient Portal. If you would like a full copy of your medical records please contact the [facility] Medical Records Department Sunday through Sunday between 8a.m. and 4:30p.m. Please follow the directions below to access the portal: 1.Access the email account you provided upon registration to the [facility].2.Look for an invitation email from [facility].3.Open the email and access the invitation link: Accept Invitation to [facility].Fill in the required french to create your account. Sign into [email or web address] with your username and password that you [...] you will allow to register on the [facility] Patient Portal for access to your information. You can also access the [facility] Patient Portal on the [employer]. Simply click on Health Records under Health Data and then click on the [facility] logo. [...] Call your local pharmacy or go to [email or web address] to find one close to you.3.Make use of household items: Use cat litter or old coffee grounds to dispose medications if other options are not available. Mix your drugs with these household products, seal them in an airtight container and throw it into the garbage. Call [facility]: [phone] to be sure your drugs can be [...] a CHART COPY Signatures Patient Education Materials Ganglion Cyst Ganglion Cyst Medication Leaflets My discharge plan and instructions have been reviewed and explained to me and I,BETSY MESA understand my current condition and have read and understand these discharge instructions. I have received a written copy of the plan/instructions. If I have questions, I am aware that I should contact my doctor. Patient/Customer Support Analyst Signature: Date/Time: Relationship to Patient: Witness Name/Signature: Date/Time: [facility] 02-18-2025 Note Exam Date Time Procedure Performing Provider Status 02/18/25 5:34 PM XR Wrist Minimum 3 Views Right SHERIN MENDEZ DO; Auth (Verified) [id number] ORIGINAL EXAMINATION: THREE XRAY VIEWS OF THE RIGHT WRIST 02/18/2025 5:34 pm COMPARISON: Right wrist radiographs 01/08/2018. HISTORY: ORDERING SYSTEM PROVIDED HISTORY: Reason for Exam: rt wrist swelling x2 weeks, NKI pain FINDINGS: Carpal bones and alignment are maintained. Distal radius and ulna are intact. No acute fracture or dislocation. No focal soft tissue abnormality. IMPRESSION: Normal wrist radiographs Interpreted by: Sherin Mendez Preliminary Report By: Sherin Mendez Electronically signed By Sherin Mendez Dictated Date: 02/18/2025 5:52:37 PM Prelim Date: 02/18/2025 5:53:14 PM Sign Date: 02/18/2025 5:53:14 PM Ordering Provider: [facility]06-16-2025 Discharge summary [facility] Medical Records Department [address] [place] [address] Emergency Department Summary 01/11/25 MR#: [id number] Acct: [id number] Name: BETSY MESA Rep #:[id number] : 1995 29 From: Oseas Aviles MD PCP: Care Physician,No Primary Status :[facility] ER Location: ED HPI History of Present Illness Chief Complaint: Numb/Ting Informant: patient Onset/Context/Timing Onset: Today Narrative Narrative: 29-year-old female history of anxiety,. Seizures and prediabetes. Says she hasfelt lightheaded. Hashad some dark stool. In mild facial tingling. Says it feels like her head is squeezing. Had similarsymptoms in the past with a negative workup done at [facility] 1 to 2 years ago. She denies any nausea, vomiting or diarrhea. No dysuria. No fever. She is on no blood thinners. Prior similar symptoms: Yes Recent Illness/[facility] Medical History Anxiety Paresthesias Cervical radiculopathy Cervicalgia Home Medications ?Medication ?Instructions ?Recorded ?Last Taken ?Type metformin 500 mg tablet 500 mg PO DAILY 04/03/24 Unk nown History ibuprofen 600 mg tablet 600 mg PO Q6H PRN PRN fever or 07/12/24 Unknown Rx pain #20 TABLETS clindamycin HCl 300 mg capsule 300 mg PO 4X/DAY 7 days #28 caps 08/08/24 Unknown Rx Allergy/AdvReac Type Severity Reaction Status Date / Time acetaminophen (From Vicodin) Allergy Hives Verified 01/11/25 21:48 hydrocodone (From Vicodin) Allergy Hives Verified 01/11/25 21:48 Family History Other Cancer Diabetes Seizures Social History Smoking Status: Former smoker quit date: 05/30/21 Tobacco: How many years used: 6 second hand exposure: Yes alcohol intake: current alcohol intake frequency: holidays/special occasions only substance use type: former substance user Date of last use: used some marijuanain the past ROS ROS ED ROS Narrative Denies recent illness. Constitutional Constitutional ED: Denies anorexia Eyes Eyes: Denies burning ENT ENT ED: Reports none Cardiovascular Cardiovascular: Reports none Respiratory/Chest Respiratory/Chest: Reports none Gastrointestinal Gastrointestinal: Reports other Details: Reportedly dark stool. Genitourinary Genitourinary ED: Reports none Musculoskeletal Musculoskeletal: Reports none Integumentary Reports none Neurologic Neurologic: Reports paresthesias Psychiatric Psychiatric: Reports none Endocrine Endocrinology: Reports none Hematologic/Lymphatic Hematologic/Lymphatic: Reports none Allergic/Immunologic Allergic/Immunologic ED: Reports none EXAM Physical Exam Narrative Exam Narrative: 29-year-old female no acute distress. Vital signs stable afebrile blood pressure is little [id number] or 97. She does not look septic toxic she has no distress. Multiple family members around the bedside. H EENT exam pupils round react light. No facial droop. Normal speech. Extraocular motions are intact. Neck nontender. Lungs clear. Heart regular rhythm no murmur. Rate about 100. Abdomen soft nontender. Normal bowel sounds no peritoneal signs. Moving all 4 extremities. Nontender no edema normal strength. Back nontender. Neurologic exam normal. NIH 0. No facial droop. Normal tipple greaser strength. Fingertip to nose lbfg-qq-vrnv within normal limits. No drift. Const Vital Signs: 01/11/25 21:48 01/11/25 21:52 01/11/25 23:16 Temperature 98.5 F 98.5 F 97.9 F Temperature Source Oral Oral Temporal Pulse Rate 106 H 106 H 80 Respiratory Rate 20 H 20 H 16 Blood Pressure 158/97 H 158/97 H 136/94 H Blood Pressure Mean 117 117 108 Pulse Ox 100 100 97 Oxygen Delivery Method Room Air Room Air 01/12/25 00:00 01/12/25 01:00 Temperature 98 F Temperature Source Oral Pulse Rate 87 Respiratory Rate 18 16 Blood Pressure 108/86 H 111/78 Blood Pressure Mean 93 89 Pulse Ox 98 78 Oxygen Delivery Method Room Air Room Air Positive well nourished, well developed, alert, oriented x3, no apparent distress, no limitations and healthy appearing; Negative for cachectic, contractures or unkempt General Appearance ED: active, cooperative, comfortable, well kempt and well developed; Negative for unkempt, cachectic or contractures Nutritional Appearance: Negative for cachectic HEENT Reports normocephalic and head/scalp atraumatic normocephalic Face and Sinus: normal facial exam Nose: external nose normal External Ear: external ears normal Mouth ED: Yes oral and palatal mucosa normal Mouth: oral and palatal mucosa normal Throat: posterior oropharynx normal Eyes PERRL, EOMs intact bilaterally and no scleral icterus General Eye ED: Yes normal appearance of both eyes Pupil: PERRL Neck full ROM, no lymphadenopathy, supple, no meningeal signs and no JVD Lymph Lymphatic: no lymphadenopathy noted and no lymphedema noted Chest Wall inspection of chest normal and palpation of chest normal Resp normal respiratory effort, normal air movement, no retractions, no use of accessory muscles and clear to auscultation bilaterally Cardio regular rate, regular rhythm, S1 normal heart sound, S2 normal heart sound, no murmurs, no rub, no gallops, no clicks and no JVD Rate: regular rate Rhythm: regular rhythm GI normal to inspection, nondistended, normoactive bowel sounds, soft to palpation,non-tender, non-distended, no masses and no bruits Back/Spine no CVA tenderness and no thoracic nor lumbar tenderness Extremity normal to inspection, full ROM, no joint enlargement, no calf tenderness and no pedal edema Neuro oriented x3, CN's II-XII intact bilaterally, moves all extremities, no focal motor deficits, no sensory deficits noted and deep tendon reflexes 2+ bilaterally Sensorium / Orientation: awake, alert, oriented to person, oriented to place andoriented to time; Negative for orientation impaired Speech: speech normal Motor Exam: strength 5/5 throughout Coordination: urkqva-fg-iqcd test normal and nddp-gh-szis test normal Psych mental status grossly normal, thought process normal, cooperative, affect normal, speech normal andactivity/motor behavior normal Appearance: grossly normal; Negative for unkempt Attitude: calm and engaged Activity / Motor Behavior: appropriate eye contact Speech: normal speech Mood & Affect: euthymic mood Thought Process: normal thought process Memory / Cognition: memory grossly intact Skin no rashes or lesions noted, no wounds, skin turgor normal, no jaundice, no petechiae and no mottling General Skin Exam: no breakdown Lesions: no lesions Rashes: no rashes MDM MDM MDM Narrative Medical decision making narrative: Well-appearing 29-year-old female. Complaining of dark stool. Check CBC. Player facial paresthesia but has a completely normal neurologic exam. CT of her brain and electrolytes will be obtained. Repeat exam patient doing well around 1:42 AM. We went over her test results including her CAT scanwhich was unremarkable. Repeat exams unchanged and normal. Normal neurologic exam. She will be discharged home with outpatient follow-up. History & Record Review Discussion w/independent historian: Patient Additional record(s) reviewed:: Prior inpatient record, Prior outpatient record,Prior ED visit and Prior labs Lab Data Attestation: I reviewed the patient's lab results. Lab results narrative: CBC shows a white count of 6. H&H 11.1 and 34 she runs her chronic anemia this is actually better than her baseline. Platelets 208. Electrolytes show sodium 138. Gap 10. Normal BUN and creatinine. Glucose 133. Labs: Laboratory Results - last 24 hr 01/11/25 23:17 WBC 6.9 RBC 4.03 L Hgb 11.1 L Hct 34.5 L MCV 85.6 MCH 27.5 MCHC 32.2 RDW Std Deviation 45.6 H RDW Coeff of Ghada 14.7 H Plt Count 208 MPV 10.6 Immature Gran % (Auto) 0.300 Neut % (Auto) 54.7 Lymph % (Auto) 34.7 Dillon % (Auto) 7.3 Eos % (Auto) 2.6 Baso % (Auto) 0.4 Absolute Neuts (auto) 3.8 Absolute Lymphs (auto) 2.39 Nucleated RBC % 0 Sodium 138 Potassium 3.9 Chloride 106 Carbon Dioxide 22.4 Anion Gap 10 BUN 11 Creatinine 0.73 Estim Creat Clear Calc 149.34 Est GFR (MDRD) Non-Af 114 BUN/Creatinine Ratio 14.5 Glucose 133 H Calcium 9.3 Radiography Diagnostic Testing: Clinical Impression(s) from Imaging Studies Brain CT 01/11/25 23:20 IMPRESSION: No acute intracranial process. Reading Location: [facility] Discharge Plan Triage Chief Complaint: Numb/Ting Other Complaint: Complaint ED Provider: Oseas Aviles Dx/Rx/DC Orders Clinical Impression: Paresthesia Instructions: ED Paraesthesias Prescriptions: No Action metformin 500 mg tablet 500 mg PO DAILY ibuprofen 600 mg tablet 600 mg PO Q6H PRN PRN (Reason: fever or pain) Qty: 20 0RF clindamycin HCl 300 mg capsule 300 mg PO 4X/DAY 7 Days Qty: 28 0RF Primary Care Provider: Care Physician,No Primary Referrals: Care Physician,No Primary [Primary Care Provider] - Activity Restrictions/Additional Instructions: Your labs and CAT scan were all good. Follow-up with your primary care physician. Print Language: Sri Lankan Disposition Disposition: Home, Self Care What to do if you have Problems For any increased pain, shortness of breath, bleeding, nausea or vomiting, chestpain, or any unexpected problems, contact your Primary Care Provider. Call [facility] ([phone]) or report tothe closest Emergency Room. Call 911 if necessary. 01/12/25 0144 Cosigner Signature (if applicable): CC: No Primary Care Physician ~ Signed [facility]06-15-2025 Radiology Diagnostic study note [facility] Imaging Services [address] [place], [place] [address] Brain/Head without Contrast MR#: [id number] Acct: [id number] Name: BETSY MESA Rep #: [id number] : 1995 F 29 From: Aubrie Meléndez MD PCP: Care Physician,No Primary Status: REG ER Study:Brain/Head without Contrast Date of Exa m: 01/11/25 Exam# [id number] Ordering Dr: Evelin Aviles MD PROCEDURE: BRAIN/HEAD WITHOUT CONTRAST 01/11/2025 REASON FOR EXAM: FACIAL NUMBNESS TECHNIQUE: BRAIN/HEAD WITHOUT CONTRAST Coronal and Sagittal reconstruction series were provided. One or more dose reduction techniques were used (e.g., Automated exposure control, adjustment of the mA and/or kV according to patient size, use of iterative reconstruction technique. RADIATION DOSE SUMMARY: DLP: 830 mGycm COMPARISON: 05/18/24 FINDINGS: There is no acute infarct, intracranial hemorrhage, or mass effect. There is no hydrocephalus or significant midline shift. No acute, depressed calvarial fractures. No large scalp hematomas. CT/Brain/Head without Contrast IMPRESSION: No acute intracranial process. Reading Location: [id number] CC: Dr. Oseas Aviles MD; No Primary Care Physician ~ Elevator Service Mechanic: Signed [facility]06-15-2025 Discharge summary Author Oseas Aviles [facility] Note Date/Time January 12, 2025 1:44 am [facility] Medical Records Department [address] [place] [address] Emergency Department Summary 01/11/25 MR#: [id number] Acct: [id number] Name: BETSY MESA Rep #:[id number] : 1995 29 From: Oseas Aviles MD PCP: Care Physician,No Primary Status :REG ER Location: ED HPI History of Present Illness Chief Complaint: Numb/Ting Informant: patient Onset/Context/Timing Onset: Today Narrative Narrative: 29-year-old female history of anxiety,. Seizures and prediabetes. Says she hasfelt lightheaded. Has had some dark stool. In mild facial tingling. Says it feels like her head is squeezing. Had similar symptoms in the past with a negative workup done at [facility] 1 to 2 years ago. She denies any nausea, vomiting or diarrhea. No dysuria. No fever. She is on no blood thinners. Prior similar symptoms: Yes Recent Illness/Hospitalization: No [facility] Medical History Anxiety Paresthesias Cervical radiculopathy Cervicalgia Home Medications ?Medication ?Instructions ?Recorded ?Last Taken ?Type metformin 500 mg tablet 500 mg PO DAILY 04/03/24 Unk nown History ibuprofen 600 mg tablet 600 mg PO Q6H PRN PRN fever or 07/12/24 Unknown Rx pain #20 TABLETS clindamycin HCl 300 mg capsule 300 mg PO 4X/DAY 7 days #28 caps 08/08/24 Unknown Rx Allergy/AdvReac Type Severity Reaction Status Date / Time acetaminophen (From Vicodin) Allergy Hives Verified 01/11/25 21:48 hydrocodone (From Vicodin) Allergy Hives Verified 01/11/25 21:48 Family History Other Cancer Diabetes Seizures Social History Smoking Status: Former smoker quit date: 05/30/21 Tobacco: How many years used: 6 second hand exposure: Yes alcohol intake: current alcohol intake frequency: holidays/special occasions only substance use type: former substance user Date of last use: used some marijuanain the past ROS ROS ED ROS Narrative Denies recent illness. Constitutional Constitutional ED: Denies anorexia Eyes Eyes: Denies burning ENT ENT ED: Reports none Cardiovascular Cardiovascular: Reports none Respiratory/Chest Respiratory/Chest: Reports none Gastrointestinal Gastrointestinal: Reports other Details: Reportedly dark stool. Genitourinary Genitourinary ED: Reports none Musculoskeletal Musculoskeletal: Reports none Integumentary Reports none Neurologic Neurologic: Reports paresthesias Psychiatric Psychiatric: Reports none Endocrine Endocrinology: Reports none Hematologic/Lymphatic Hematologic/Lymphatic: Reports none Allergic/Immunologic Allergic/Immunologic ED: Reports none EXAM Physical Exam Narrative Exam Narrative: 29-year-old female no acute distress. Vital signs stable afebrile blood pressure is little elevated 150 or 97. She does not look septic toxic she has no distress. Multiple family members around the bedside. H EENT exam pupils round react light. No facial droop. Normal speech. Extraocular motions are intact. Neck nontender. Lungs clear. Heart regular rhythm no murmur. Rate about 100. Abdomen soft nontender. Normal bowel sounds no peritoneal signs. Moving all 4 extremities. Nontender no edema normal strength. Back nontender. Neurologic exam normal. NIH 0. No facial droop. Normal tipple greaser strength. Fingertip to nose motx-cp-vilo within normal limits. No drift. Const Vital Signs: 01/11/25 21:48 01/11/25 21:52 01/11/25 23:16 Temperature 98.5 F 98.5 F 97.9 F Temperature Source Oral Oral Temporal Pulse Rate 106 H 106 H 80 Respiratory Rate 20 H 20 H 16 Blood Pressure 158/97 H 158/97 H 136/94 H Blood Pressure Mean 117 117 108 Pulse Ox 100 100 97 Oxygen Delivery Method Room Air Room Air 01/12/25 00:00 01/12/25 01:00 Temperature 98 F Temperature Source Oral Pulse Rate 87 Respiratory Rate 18 16 Blood Pressure 108/86 H 111/78 Blood Pressure Mean 93 89 Pulse Ox 98 78 Oxygen Delivery Method Room Air Room Air Positive well nourished, well developed, alert, oriented x3, no apparent distress, no limitations and healthy appearing; Negative for cachectic, contractures or unkempt General Appearance ED: active, cooperative, comfortable, well kempt and well developed; Negative for unkempt, cachectic or contractures Nutritional Appearance: Negative for cachectic HEENT Reports normocephalic and head/scalp atraumatic normocephalic Face and Sinus: normal facial exam Nose: external nose normal External Ear: external ears normal Mouth ED: Yes oral and palatal mucosa normal Mouth: oral and palatal mucosa normal Throat: posterior oropharynx normal Eyes PERRL, EOMs intact bilaterally and no scleral icterus General Eye ED: Yes normal appearance of both eyes Pupil: PERRL Neck full ROM, no lymphadenopathy, supple, no meningeal signs and no JVD Lymph Lymphatic: no lymphadenopathy noted and no lymphedema noted Chest Wall inspection of chest normal and palpation of chest normal Resp normal respiratory effort, normal air movement, no retractions, no use of accessory muscles and clear to auscultation bilaterally Cardio regular rate, regular rhythm, S1 normal heart sound, S2 normal heart sound, no murmurs, no rub, no gallops, no clicks and no JVD Rate: regular rate Rhythm: regular rhythm GI normal to inspection, nondistended, normoactive bowel sounds, soft to palpation,non-tender, non-distended, no masses and no bruits Back/Spine no CVA tenderness and no thoracic nor lumbar tenderness Extremity normal to inspection, full ROM, no joint enlargement, no calf tenderness and no pedal edema Neuro oriented x3, CN's II-XII intact bilaterally, moves all extremities, no focal motor deficits, no sensory deficits noted and deep tendon reflexes 2+ bilaterally Sensorium / Orientation: awake, alert, oriented to person, oriented to place andoriented to time; Negative for orientation impaired Speech: speech normal Motor Exam: strength 5/5 throughout Coordination: rodpzg-jz-pbyi test normal and gsjf-ll-wgtu test normal Psych mental status grossly normal, thought process normal, cooperative, affect normal, speech normal and activity/motor behavior normal Appearance: grossly normal; Negative for unkempt Attitude: calm and engaged Activity / Motor Behavior: appropriate eye contact Speech: normal speech Mood & Affect: euthymic mood Thought Process: normal thought process Memory / Cognition: memory grossly intact Skin no rashes or lesions noted, no wounds, skin turgor normal, no jaundice, no petechiae and no mottling General Skin Exam: no breakdown Lesions: no lesions Rashes: no rashes MDM MDM MDM Narrative Medical decision making narrative: Well-appearing 29-year-old female. Complaining of dark stool. Check CBC. Player facial paresthesia but has a completely normal neurologic exam. CT of her brain and electrolytes will be obtained. Repeat exam patient doing well around 1:42 AM. We went over her test results including her CAT scan which was unremarkable. Repeat exams unchanged and normal. Normal neurologic exam. She will be discharged home with outpatient follow-up. History & Record Review Discussion w/independent historian: Patient Additional record(s) reviewed:: Prior inpatient record, Prior outpatient record,Prior ED visit and Prior labs Lab Data Attestation: I reviewed the patient's lab results. Lab results narrative: CBC shows a white count of 6. H&H 11.1 and 34 she runs her chronic anemia this is actually better than her baseline. Platelets 208. Electrolytes show sodium 138. Gap 10. Normal BUN and creatinine. Glucose 133. Labs: Laboratory Results - last 24 hr 01/11/25 23:17 WBC 6.9 RBC 4.03 L Hgb 11.1 L Hct 34.5 L MCV 85.6 MCH 27.5 MCHC 32.2 RDW Std Deviation 45.6 H RDW Coeff of Ghada 14.7 H Plt Count 208 MPV 10.6 Immature Gran % (Auto) 0.300 Neut % (Auto) 54.7 Lymph % (Auto) 34.7 Dillon % (Auto) 7.3 Eos % (Auto) 2.6 Baso % (Auto) 0.4 Absolute Neuts (auto) 3.8 Absolute Lymphs (auto) 2.39 Nucleated RBC % 0 Sodium 138 Potassium 3.9 Chloride 106 Carbon Dioxide 22.4 Anion Gap 10 BUN 11 Creatinine 0.73 Estim Creat Clear Calc 149.34 Est GFR (MDRD) Non-Af 114 BUN/Creatinine Ratio 14.5 Glucose 133 H Calcium 9.3 Radiography Diagnostic Testing: Clinical Impression(s) from Imaging Studies Brain CT 01/11/25 23:20 IMPRESSION: No acute intracranial process. Reading Location: [facility] Discharge Plan Triage Chief Complaint: Numb/Ting Other Complaint: Complaint ED Provider: Oseas Aviles Dx/Rx/DC Orders Clinical Impression: Paresthesia Instructions: ED Paraesthesias Prescriptions: No Action metformin 500 mg tablet 500 mg PO DAILY ibuprofen 600 mg tablet 600 mg PO Q6H PRN PRN (Reason: fever or pain) Qty: 20 0RF clindamycin HCl 300 mg capsule 300 mg PO 4X/DAY 7 Days Qty: 28 0RF Primary Care Provider: Care Physician,No Primary Referrals: Care Physician,No Primary [Primary Care Provider] - Activity Restrictions/Additional Instructions: Your labs and CAT scan were all good. Follow-up with your primary care physician. Print Language: Sri Lankan Disposition Disposition: Home, Self Care What to do if you have Problems For any increased pain, shortness of breath, bleeding, nausea or vomiting, chestpain, or any unexpected problems, contact your Primary Care Provider. Call [facility] ([phone]) or report to the closest Emergency Room. Call 911 if necessary. 01/12/25 0144 <Electronically signed by Oseas Aviles MD> Cosigner Signature (if applicable): CC: No Primary Care Physician ~ Signed [facility] Work Phone: 1(325) 377-718303-04-2025 Hospital Discharge instructions Patient Education 09/30/2024 11:35:01 Headache, Unspecified Headache, Unspecified A number of things can cause headaches. The cause of your headache isn t clear. But it doesn t seemto be a sign of any serious illness. [...] face You have trouble talking or seeing [id number] [employer]. [address] [place] [address]. All rights reserved. This information is not intended as a substitute for professional medical care. Always follow yourhealthcare professional's instructions. Follow Up Care 09/30/2024 10:02:36 With:RODO HART Address: When:2-4 days With:ARLINE CORADO Address: [address] [place] [phone] When:2-4 days [facility] 03-04-2025 Note Discharge Instructions Thank you for allowing [facility] to assist you with your healthcare needs. The following is importantdischarge information regarding your hospital visit. Diagnosis from Today's Visit Headache What to Do Next Instructions from Your Care Team No qualifying data available. Post Acute Orders No qualifying data available. You Need to Schedule the Following Appointments Follow Up with RODO HART When:Within 2-4 days Follow Up with ARLINE CORADO When:Within 2-4 days Where:[address] [place] [phone] Allergies Vicodin Medications Please ask your primary doctor or pharmacist before taking any other medication not listed, including over the counter drugs, herbal medications, vitamins and or supplements as they may interact withyour home medications. What How Much When Why Instructions Last Dose New APAP/ butalbital/ caffeine (Fioricet oral capsule- use generic Fioricet tablet) 1 cap by mouth Every 4 hours as needed for as needed Duration: 7 Days Printed Prescription Unchanged acetaminophen (Tylenol) Unchanged DME (Blood Glucose Test Machine) See instructions Type 2 diabetes mellitus 1 glucometer Unchanged DME (Blood Glucose Test Strips) See instructions Type 2 diabetes mellitus check BS daily Unchanged DME (Dexcom G7 [place]) See instructions Type 2 diabetes mellitus Use [...] instructions BD VENANCIO 2 GEN PEN NDL [id number] Unchanged DME (Lancets) See instructions test BS [...] isn t clear. But it doesn t seemto be a sign of any serious illness. [...] face You have trouble talking or seeing [id number] [employer]. [address] [place] [address]. All rights reserved. This information is not intended as a substitute for professional medical care. Always follow yourhealthcare professional's instructions. Additional Information VACCINATE! IT SAVES LIVES! Members of the community who have not yet received the COVID-19 vaccine and would like to receive it can visit one of [facility] vaccine clinics. There are many vaccine clinic locations within the [facility]. For locations and available times, please visit www.gettheshot.coronavirus.[place].gov/. It is important to note that some COVID mobile vaccine clinics are held outdoors and may be canceled in rainy or stormy conditions. To learn more about pediatric vaccinations (ages 5-11), we invite you to visit the [facility] webpage. https://www.[facility].org/pages/3499-Mmmty-Vmbqqvhgbka-Qurvdewtbl-Khgju-Ast stions.htmlTo learn more about the COVID-19 vaccine, we invite you to visit the CDC website for a list of frequently asked questions. https://www.cdc.gov/coronavirus/2019-ncov/vaccines/faq.html [facility] Patient Portal Access Instructions: Stay connected with your healthcare team and access your personal medical information anytime with the [facility]. If you would like a full copy of your medical records please contact the [facility] Medical Records Department Sunday through Sunday between 8a.m. and 4:30p.m. Please follow the directions below to access the portal: 1.Access the email account you provided upon registration to the [facility].2.Look for an invitation email from [facility].3.Open the email and access the invitation link: Accept Invitation to [facility]4.Fill in the required french to create your account. Sign into [email or web address] with your username and password that you [...] you will allow to register on the [facility] Patient Portal for access to your information. You can also access the [facility] Patient Portal on the Jumbas lisette. Simply click on Health Records under The Moment and then click on the [facility] logo. [...] Call your local pharmacy or go to http://bit.The Echo Nest/6E5Qt6r to find one close to you.3.Make use of household items: Use cat litter or old coffee grounds to dispose medications if other options arenot available. Mix your drugs with these household products, seal them in an airtight container andthrow it into the garbage. Call [facility]: [phone] to be sure your drugs can be [...] been reviewed and explained to me and I,BETSY MESA understand my current condition and have read and understand these discharge instructions. I have received a written copy of the plan/instructions. If I have questions, I am aware that I should contact my d octor. Patient/Customer Support Analyst Signature: Date/Time: Relationship to Patient: Witness Name/Signature: Date/Time: [facility]10-08-2024 Nurse Note* Irma Lin RN - 05/06/2024 3:54 PM EDT Pre Procedure Assessment: Betsy Mesa is a 29 year old here [...] 20 Bleeding:Light Pain Ratin/10 Irma Lin RN [facility]10-08-2024 Instructions* Patient Instructions* Deana Sethi RN - 05/06/2024 3:54 PM EDT Information and Instructions: After a Manual Uterine Aspiration (IPAS) Procedure Bleeding Most people have some bleeding after an aspiration procedure. The amount differs for each everyone,ranging from no bleeding to moderate period-like bleeding [...] every hour for 2 hours, or passing multiplelarge clots or larger and larger clots. Cramping [...] the microwave, but beware, it s hot! Youmay also take ibuprofen (Motrin/ Advil) or naproxen [...] may recommend one, or you may choose toschedule one if you have any concerns, problems, or questions. Please do not put anything in your vagina for 1 week (no vaginal intercourse, toys, tampons, or douching). Do not swim or use hot tubs for 1 week. Baths by yourself (do not share water for 2 weeks) and showers are OK. Important Phone Numbers: [facility] Appointments in Valve Assembler ( Early Assessment Clinics) Tiffany Cormier [facility] at [phone] Merged with [facility] at [phone] [facility] at [phone] After 4:30 PM or on weekends, you may reach the on-call Valve Assembler by calling the clinic where you wereseen. This will automatically transfer you to a [...] emotionally after a loss is important. Above all,don t blame yourself. Counseling is available to help you cope with your loss. A loss support group might also be a valuable resource to you and your partner. ONLINE RESOURCES Unspoken Grief: an online miscarriage support resource for miscarriage, stillbirth and loss unspokengrief.org A Heartbreaking Choice: support for diagnosis or termination for medical reasons. http://www.Cyber Gifts.viblast/ [facility]: ending a for a abnormality http://www.healthtalkonline.org/Pregnancy_children/Ending_a_pregnancy_for_fetal_ abnormality Ending a Wanted : support for patients and families ending a after or maternal medical diagnosis https://BrightpearlawantedComenta TVancy.viblast Caden Gudino: one person's story about loss and collected resources. http://www.GlobalLabingZeugma Systems.viblast Erica's Gift: headquarters in [place] but with online support group https://www.rachelsgift.org/jkpice-bzkt-qjzvhwp-groups.html LOCAL RESOURCES Love Lives On, [facility] https://my.[facility].org/locations/[facility]/guest-services/suppo rt Jemal(Families Experiencing Early Loss) [facility] https://consultqd.[facility].org/bbiukdcft-nrtbeaqls-krybvvwdjwl-program-james esqmir-gktjrfgn-dlnkibku/ [facility] - counseling services [phone] or toll free at [phone] [facility] Support Groups (not specific to loss) https://my.[facility].org/patients/information/bereavement/support-groups [facility] Bereave[facility] [place] Counselors with experience with families facing the loss of a baby before . This service may be covered by your insurance. If not, [facility] will not turn anyone away because of inability to pay. or [phone] Ramirez Lozano, local counselor, not associated with [facility] [phone] Some of our families have recommended Ramirez Lozano as he specializes in helping families who have had or are facing a loss. This may be covered by your insurance, if not, a sliding scale payment plan is available. BOOKS Our Heartbreaking Choices: Forty-Six Women Share Their Stories of Interrupting a Much-Wanted , By Gabby Garay Sorrow: Loss-Guidance and Support for You and Your Family, By Marie Ndiaye and Babar Cevallos Unspeakable Losses: Healing from Miscarriage, , and other Loss, By Arline Moore Empty Cradle, Broken Heart: Surviving the of your Baby, By Tamar Meza Empty Arms: Coping with Miscarriage, Stillbirth, and Infant , By Mynor Aggarwal I Love You Still: A Memorial Baby Book, By Katie Mukherjee Understanding Your Grief: Ten Essential Touchstones for Finding Hope and Healing Your Heart, By Pedro Beckwith BOOKS FOR CHILDREN We Were Gonna Have a Baby, But We had an Clifford Instead, By Gricel Draper My Sibling Still, By Toyin Ni The Goodparmjite Book, By Brad Busch Something Happened, By Carolyn Rea No New Baby, By Kyra Gallardo The Invisible String, By Duane Ramos Our Baby , by Silvia Cordero (two books, one for surgical termination and one for induction of labor) documented in this encounterOhio[facility]10-[facility]-2024 Nurse Note* Irma Lin RN - 05/06/2024 3:54 PM EDT Pre Procedure Assessment: Betsy Mesa is a 29 year old here [...] Ratin/10 Irma Lin RN documented in this encounterOhio[facility]10-[facility]-2024 NoteHNO ID: [id number] Author: LEELA CURRIE MD Service: ? Author Type: Physician Type: Progress Notes Filed: 05/07/2024 10:35 Note Text: Betsy Mesa is a 29 year old female who presents for problem visit for vaginal bleeding, falling HCG levels. Patient's last menstrual period was 02/18/2024 (within days). Last week was seen for this and dx w/ SAB. Last night started bleeding and went to [facility] ED but long wait so went to [place] ED and they offered patient to go to [facility] or f/u in office. Patient was d/jose home to f/u today. Having waves of cramping nad passing clots, bleeding heavier than a period. Soaked through pads last night then it slowed and passed more clots. OB History T3 L3 SAB0 IAB0 Ectopic0 Multiple0 Live Births3 Short Story Writer History LMP: 02/18/2024 (Within Days), Recent Age at Menarche: Age at First : Age at Menopause: Short Story Writer History Comments: Sexual Activity: Yes; Male Contraception: [...] discussed with the Patient or Patient's Authorized Customer Support Analyst. As applicable, any other physician, advance practice provider, medical student, or other health professional student that will be observing or involved in the sensitive examination for educational or training purposes was discussed with the Patient or Authorized Customer Support Analyst. The Patient or Authorized Customer Support Analyst has agreed to proceed with the sensitive examination. (Sensitive examination includes inspection and/or palpation of the breasts, pelvis, prostate and anorectal regions). EXAM: Wt 212 lb (96.2kg) LMP 02/18/2024 GENERAL: in pain, female in mild distress ABDOMEN: soft, non-tender, and no masses PELVIC: external genitalia normal, normal Bartholin's glands, urethra, Licking's glands, no vulvar lesions, no cervical lesions, [...] Plan of Care Visit completed when applicable. Leela Currie MD Procedure note (more content not included)...[facility] 05-06-2024 History of Present illness Narrative* Leela Currie MD - 05/06/2024 2:58 PM EDT Betsy Mesa is a 29 year old female who presents for problem visit for vaginal bleeding, falling HCG levels. Patient's last menstrual period was 02/18/2024 (within days). Last week was seen for thisand dx w/ SAB. Last night started bleeding and went to [facility] ED but long wait so went [place] they offered patient to go to [facility] or f/u in office. Patient was d/jose home to f/u today. Having waves of cramping nad passing clots, bleeding heavier than a period. Soaked through pads last night then it slowed and passed more clots. OB History T3 L3 SAB0 IAB0 Ectopic0 Multiple0 Live Births3 Short Story Writer History LMP: 02/18/2024 (Within Days), Recent Age at Menarche: Age at First : Age at Menopause: Short Story Writer History Comments: Sexual Activity: Yes; Male Contraception: [...] discussed with the Patient or Patient's Authorized Customer Support Analyst. As applicable, any other physician, advance practice provider, medical student, or other health professional student that will be observing or involved in the sensitive examination for educational or training purposes was discussed with the Patient or Authorized Customer Support Analyst. The Patient or Authorized Customer Support Analyst has agreed to proceed with the sensitive examination. (Sensitive examination includes inspection and/or palpation of the breasts, pelvis, prostate and anorectal regions). EXAM: Wt 212 lb (96.2kg) LMP 02/18/2024 GENERAL: in pain, female in mild distress ABDOMEN: soft, non-tender, and no masses PELVIC: external genitalia normal, normal Bartholin's glands, urethra, Licking's glands, no vulvar lesions, no cervical lesions, good vaginal support, normal appearing perineal body and perianal region, cervix dilated, large clots in vault, approx 100 cc cleared out and on pads. Some active bleeding.NO POCs visible at os. TVUS done- 3 x 5 cm heterogeneous debris noted. BIMANUAL: anteverted, no adnexal masses, and appropriately tender ASSESSMENT AND PLAN: incomplete sab, active bleeding R/B/A to suction D&C in ED vs in office IPAS reviewed, questions answered, decision for surgerytoday. Quant pending, will not send for CBC [...] Plan of Care Visit completed when applicable. Leela Currie MD Procedure note: Speculum was placed [...] reviewed. Follow up: 1-2 weeks or prn Leela Currie MD documented in this encounterOhio[facility]24 Telephone encounter Note * Telephone Encounter - Scarlett Robledo RN - 05/05/2024 12:23 PM EDT Spoke with patient. She will have another HCG level drawn today since she has an appointment with [facility] on Sunday. Bleeding a little more. Changing a pad every 2-3 hours for comfort. Not soaking a pad. Scarlett Robledo RN [facility]10-07-2024 Miscellaneous Notes* Telephone Encounter - Scarlett Robledo RN - 05/05/2024 12:23 PM EDT Spoke with patient. She will have another HCG level drawn today since she has an appointment with [facility] on Sunday. Bleeding a little more. Changing a pad every 2-3 hours for comfort. Not soaking a pad. Scarlett Robledo RN * Telephone Encounter - Irma Lin RN - 05/02/2024 1:59 PM EDT CP notified Pt. Please leave phone note open to f/u on HCG results. Irma Lin RN * Telephone Encounter - Irma Lin RN - 05/02/2024 1:59 PM EDT ----- Message from Jose Aranda APRN.CNM sent at 05/02/2024 1:12 PM EDT ----- HCG level is decreasing. Patient aware that she needs to complete follow up levels. Jose Aranda APRN.CNM documented in this encounterOhio[facility]10-04-2024 Telephone encounter Note * Telephone Encounter - Irma Lin RN - 05/02/2024 1:59 PM EDT CP notified Pt. Please leave phone note open to f/u on HCG results. Irma Lin RN [facility]10-04-2024 Telephone encounter Note* Telephone Encounter - Irma Lin RN - 05/02/2024 1:59 PM EDT ----- Message from Jose Aranda APRN.CNM sent at 05/02/2024 1:12 PM EDT ----- HCG level is decreasing. Patient aware that she needs to complete follow up levels. Jose Aranda APRN.CNM [facility]10-03-2024 NoteHNO ID: [id number] Author: KESHAWN MOSCOSO MD Service: ? 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 Encounter Diagnosis ICD-10-CM 1. with uncertain dates in first trimester Z34.91 Please see report under imaging tab. 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 Encounter Diagnosis ICD-10-CM 1. with uncertain dates in first trimester Z34.91 Please see report under imaging tab. Keshawn Moscoso MD May 01, 2024 8:37 PM documented in this encounterOhiohealth [facility]10-03-2024 NoteHNO ID: [id number] Author: JOSE ARANDA APRN.CNM Service: ? Author Type: Artificial Pearl Maker Type: Progress Notes Filed: 05/01/2024 14:31 Note Text: Betsy Mesa is a 29 year old female [...] she started spotting and cramping this morning. Short Story Writer History LMP: 02/18/2024 (Within Days), Age at Menarche: Age at First : Age at Menopause: Short Story Writer History Comments: Sexual Activity: Yes; Male Contraception: [...] - No s/s of ectopic per US certified hyperbaric technician - Current gestational sac is 82 [...] and partner voice understanding - Support provided Jose Aranda APRN.[facility]10-03-2024 History of Present illness Narrative* Jose Aranda APRN.JOHN - 05/01/2024 1:45 PM EDT Betsy Mesa is a 29 year old female [...] she started spotting and cramping this morning. Short Story Writer History LMP: 02/18/2024 (Within Days), Age at Menarche: Age at First : Age at Menopause: Short Story Writer History Comments: Sexual Activity: Yes; Male Contraception: [...] - No s/s of ectopic per US certified hyperbaric technician - Current gestational sac is 82 [...] and partner voice understanding - Support provided Jose Aranda APRN.CNM documented in this encounterOhiohealth [facility]09-30-2024 NoteHNO ID: [id number] Author: SUSHIL VILLANUEVA APRN.CNP Service: ? Author Type: Nurse Practitioner Type: Progress Notes Filed: 04/28/2024 12:59 Note Text: Betsy Mesa is a 29 year old female who presents for problem visit of follow up ER visit for positive HCG. 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 As applicable, any other physician, advance practice provider, medical student, or other health professional student that will be observing or involved in the sensitive examination for educational or training purposes was discussed with the Patient or Authorized Customer Support Analyst. The Patient or Authorized Customer Support Analyst has agreed to proceed with the sensitive [...] - ICD9: V22.1, ICD10: Z34.91 - POC BUZZSAW OPERATOR ULTRASOUND - HCG QUANTITATIVE - COMPLETE BLOOD [...] testing/treatment Medical Decision Making Level: 4 - ModerateSelect [facility]-30-2024 History of Present illness Narrative* Sushil Villanueva APRN.CNP - 04/28/2024 11:28 AM EDT Betsy Mesa is a 29 year old female who presents for problem visit of follow up ER visit for positive HCG. 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 As applicable, any other physician, advance practice provider, medical student, or other health professional student that will be observing or involved in the sensitive examination for educational or training purposes was discussed with the Patient or Authorized Customer Support Analyst. The Patient or Authorized Customer Support Analyst has agreed to proceed with the sensitive [...] - ICD9: V22.1, ICD10: Z34.91 - POC BUZZSAW OPERATOR ULTRASOUND - HCG QUANTITATIVE - COMPLETE BLOOD [...] Level: 4 - Moderate documented in this encounterOhiohealth Dublin [facility] Hospital09-27-2024 Evaluation + Plan note Future Scheduled Tests Laboratory* Thyroid Stimulating Hormone 04/25/24 * Free T4 04/25/24 * Free T3 04/25/24 Radiology* US Breast Left Complete 09/15/24 [facility] 08-18-2024 Note. MICRO - Microbiology PROCEDURE: Affirm Pathogens DNA [...] Locations *1: This test was performed at: [address], [address]- , [facility] ([place])02-06-2024 Note. MICRO - Microbiology PROCEDURE: Affirm Pathogens DNA [...] Locations *1: This test was performed at: [address], [address]- , [facility] ([place])01-03-2024 Note. MICRO - Microbiology PROCEDURE: Urine Culture [*1] [...] Locations *1: This test was performed at: [address], [address]- , [facility] ([place])01-02-2024 Note. MICRO - Microbiology PROCEDURE: Affirm Pathogens DNA [...] Locations *1: This test was performed at: [address], [id number]- , [facility])12-11-2023 NoteHNO ID: [id number] Author: GARTH POLANCO RN Service: ? Author Type: Registered Nurse Type: Nursing Progress Note Filed: 12/11/2023 12:58 Note Text: Patient given AVS no questions at this time. Patient walked to main entrance for discharge.[facility]05-13-2024 NoteHNO ID: [id number] Author: LORETA FROST MD Service: Hospital Medicine Author Type: Physician Type: Progress Notes Filed: 12/10/2023 17:34 Note Text: DEPARTMENT OF HOSPITAL MEDICINE Hospital Medicine/Primary Attending: Loreta Frost MD NIGHT AND WEEKEND COVERAGE: After 7pm please page [phone] Subjective: Seen and examined at bedside. No [...] tab(s) 81 mg ORAL DAILY Given, 12/09 89912/09/23 2344 -- 12/09/23 2345 activity - mobilize patient ([place]) SIGNATURE: Loreta Frost MD PATIENT NAME: Betsy Mesa DATE: December 10, 2023 TIME: 4:02 PM PAGER/CONTACT #: Team color pager Disclaimer: Portions of this note may have been generated using [employer] voice recognition software. Reasonable efforts were made to correct any dictation errors that resulted due to the programming of this software but some may still be present. Please note, the time of this note does not reflect the time I saw this patient today, but the time of this documentation.[facility]05-13-2024 NoteHNO ID: [id number] Author: BOB JOYA LISW Service: Care Management Author Type: Payment Manager Type: Care Mgt Progress Note Filed: 12/10/2023 [...] this time. SIGNATURE: FATEMEH Peng PATIENT NAME: Betsy Mesa DATE: December 10, 2023 TIME: 3:18 PM PAGER/CONTACT #: [phone]23 NoteHNO ID: [id number] Author: GILA ROTH MD Service: ? Author Type: Physician Type: Progress Notes Filed: 12/09/2023 18:41 Note Text: TELESTROKE DOCUMENTATION Name: Betsy Mesa : 1995 Referring Site: [facility] Referring Provider: Dr. Muniz Last Known [...] a telestroke. Thank you for contacting the [facility]. I appreciate the opportunity for allowing me to participate in Betsy Mesa's care. Please feel free to contact me and/or the [facility] at any time if you have any further questions or need additional assistance. Lester Roth MD December 09, 2023 6:40 PMCBrec[facility] History of Present illness Narrative* Gila Roth MD - 12/09/2023 6:40 PM EDT TELESTROKE DOCUMENTATION Name: Betsy Mesa : 1995 Referring Site: [facility] Referring Provider: Dr. Muniz Last Known [...] a telestroke. Thank you for contacting the [facility]. I appreciate the opportunity for allowing me to participate in Betsy Mesa's care. Please feel free to contact me and/or the [facility] at any time if you have any further questions or need additional assistance. Lester Roth MD December 09, 2023 6:40 PM documented in [facility] encounterOhio[facility] Note. MICRO - Microbiology PROCEDURE: Urine Culture [*1] SOURCE: Urine, Clean Catch BODY SITE: COLLECTED DATE/TIME: 12/04/2023 13:30 EDT RECEIVED DATE/TIME: 12/05/2023 07:26 EDT START DATE/TIME: 12/05/2023 07:26 EDT FREE TEXT SOURCE: FINAL REPORTS Final Report [] Verified Date/Time/Personnel: 12/06/2023 14:21 EDT 10,000 - 50,000 cfu/ml Mixed growth consistent with normal urogenital marilu. Performing Locations *1: This test was performed at: [facility], [address] [place] [address], [address] , [facility] [place] ([place])08-11-2023 Hospital Discharge instructions* Additional Discharge Instructions Please keep well hydrated and take your medication as prescribed and follow up closely with your primary care doctor. If the symptoms worsen or new symptoms develop return to the Emergency Department (ED) immediately. Call your doctor for additional questions. ED . Instruction/Education Provided DI for Keke pennington -- [facility] 02-28-2023 Hospital Discharge instructions* Discharge Instructions* [...] care or concern. documented in [facility] Work Phone: [phone]) 598-517008-10-2022 Note Discharge Instructions Thank you for allowing [facility] to assist you with your healthcare needs. The following is importantdischarge information regarding your hospital visit. Your Care Team PHYSICIAN, NONE What to do next Follow Up Appointments Follow Up [facility] When In 6 weeks 04/18/2022 EDT Why: Follow-up as needed Where: [address] (Mon-Fri from 8:30am - 5:00pm) [place] [address]- Follow Up with [facility] food program; When Someone Will Contact You [...] in Bleeding, Increase in Pain, or Increase infoul odors, 03/07/22 6:16:00 EDT The Following Treatments [...] for as needed for constipation Pickup at [facility] #69094 New ibuprofen (ibuprofen 600 mg oral tablet) 1 tab(s) by mouth Every 6 hours as needed for for pain Take with food or milk. Pickup at [facility] #41332 New insulin glargine (Lantus 100 units/ mL10 ml vial solution) 22 unit(s) Subcutaneous (INT) Once a day (in the evening) Refills: 5 Patient needs 6 week supply of 22 units daily Pickup at [facility] #76313 Changed cyclobenzaprine (cyclobenzaprine 5 mg oral tablet) 1 tab(s) by mouth Three (3) times a day Duration: 7 Days Pickup at [facility] #13058 Unchanged famotidine (Pepcid 20 mg oral tablet) 1 tab(s) by mouth Once a day Unchanged multivitamin, (PNV Select) by mouth Once a day Pharmacy Information [facility] #[id number]: [address], [place] [phone] What How Much When Comments Stop Taking [...] you. Follow these instructions at home: Take eywv-vqa-mwzdrpg and prescription medicines only as told by [...] 03/19/2015 Document Revised: 08/22/2019 Document Reviewed: 05/06/2018 Showcase-TV Patient Education 2020 [employer] Inc. Hemorrhage hemorrhage is excessive blood loss [...] spinach, red meat, and legumes. Take any ebfl-jhk-nctqghf and prescription medicines only as told by [...] 10/05/2004 Document Revised: 06/28/2018 Document Reviewed: 02/16/2017 Showcase-TV Patient Education 2020 [employer] Inc. Home Care Instructions After Delivery After [...] decreases and the color of blood gets nutritional assistant. Bright red and increased flow may reoccur [...] tender for several weeks. Take prescription or euuq-lde-rihhngm medications for pain with your care givers [...] straining when trying to pass a stool. Xmyb-yll-ysekmqa medications, stool softeners, can be used. Check [...] to receive it can visit one of [facility] vaccine clinics. There are many vaccine clinic locations within the [facility]. For locations and available times, please visit www.[email or web address].[email or web address]. It is important to note that some COVID mobile vaccine clinics are held outdoors and may be canceled in rainy orstormy conditions. To learn more about pediatric vaccinations (ages 5-11), we invite you to visit the [facility] webpage. https://www.[facility].org/pages/0291-Xuncf-Abgbfbgwpqk-Idogphjhxu-Ddmux-Mwb stions.htmlTo learn more about the COVID-19 vaccine, we invite you to visit the [employer] website for a list of frequently asked questions. [email or web address]/assets/Bfbiavro-uyb-Uwdbyvnu/cqufb-Phqnryv-Kxquefsgqk _Asked-Questions.pdf [facility] Patient Portal Access Instructions: Stay connected with your healthcare team and access your personal medical information anytime with the [facility] Patient Portal.If you would like a full copy of your medical records, please contact the [facility] Medical Records Department, Sunday through Sunday between 8a.m. and 4:30p.m. Please follow the directions below to access the portal: 1.Access the email account you provided upon registration to the [facility].2.Look for an invitation email from [facility].3.Open the email and access the invitation link: Accept Invitation to [facility]4.Fill in the required french to create your account. Sign into [email or web address] with your username and password that you [...] you will allow to register on the [facility] Patient Portal for access to your information. You can also access the [facility] Patient Portal on the Jumbas lisette. Simply click on Health Records under [employer] and then click on the [facility] logo. [...] Call your local pharmacy or go to http://bit.The Echo Nest/5P0Lp3n to find one close to you.3.Make use of household items: Use cat litter or old coffee grounds to dispose medications if other options arenot available. Mix your drugs with these household products, seal them in an airtight container andthrow it into the garbage. Call [facility]: [phone] to be sure your drugs can be [...] been reviewed and explained to me and I,BETSY MESA understand my current condition and have read and understand these discharge instructions. I have received a written copy of the plan/instructions. If I have questions, I am aware that I should contact my d octor. Patient/Customer Support Analyst Signature: Date/Time: Relationship to Patient: Witness Name/Signature: Date/Time: [id number] Note A. Received in formalin, labeled with [...] less than 15% ofthe overall disc volume. Customer Support Analyst sections in 3 cassettes. Dictated by [facility] 08-09-2022 Note A. Received in formalin, labeled [...] less than 15% ofthe overall disc volume. Customer Support Analyst sections in 3 cassettes. Dictated by [facility] 08-09-2022 Hospital Discharge instructions Patient Education 03/07/2022 [...] you. Follow these instructions at home: Take yojf-zoi-tidmzkk and prescription medicines only as told by [...] 03/19/2015 Document Revised: 08/22/2019 Document Reviewed: 05/06/2018 Showcase-TV Patient Education 2020 [employer]. 03/07/2022 07:46:22 Hemorrhage Hemorrhage hemorrhage is excessive [...] spinach, red meat, and legumes. Take any ztof-roc-gpjuefz and prescription medicines only as told by [...] 10/05/2004 Document Revised: 06/28/2018 Document Reviewed: 02/16/2017 Showcase-TV Patient Education 2020 [employer]. 03/07/2022 07:46:19 7- Home Care Instructions After [...] decreases and the color of blood gets nutritional assistant. Bright red and increased flow may reoccur [...] tender for several weeks. Take prescription or gsmn-xfy-skfjarq medications for pain with your care givers [...] straining when trying to pass a stool. Nvmi-yau-tgruzsr medications, stool softeners, can be used. Check [...] flu symptoms.) Follow Up Care 03/05/2022 09:44:05 [facility] Address: [address] [facility] (Mon-Fri from 8:30am - 5:00pm) [place] [address]- When:04/18/2022 Comments:Follow-up as needed With:[facility] food program; Address:Unknown When: Unknown [facility] 08-09-2022 Note Discharge Instructions Thank you for allowing [facility] to assist you with your healthcare needs. The following is importantdischarge information regarding your hospital visit. Your Care Team PHYSICIAN, NONE What to do next Follow Up Appointments Follow Up with [facility] When In 6 weeks 04/18/2022 EDT Why: Follow-up as needed Where: [address] [facility] (Mon-Fri from 8:30am - 5:00pm) [place] [address]- Follow Up with [facility]; When Someone Will Contact You Regarding These [...] for as needed for constipation Pickup at [facility] #09492 New ibuprofen (ibuprofen 600 mg oral tablet) 1 tab(s) by mouth Every 6 hours as needed for for pain Take with food or milk. Pickup at [facility] #57351 New insulin glargine (Lantus 100 units/ mL10 ml vial solution) 22 unit(s) Subcutaneous (INT) Once a day (in the evening) Refills: 5 Patient needs 6 week supply of 22 units daily Pickup at [facility] #07520 Changed cyclobenzaprine (cyclobenzaprine 5 mg oral tablet) 1 tab(s) by mouth Three (3) times a day Duration: 7 Days Pickup at [facility] #18846 Unchanged famotidine (Pepcid 20 mg oral tablet) 1 tab(s) by mouth Once a day Unchanged multivitamin, (PNV Select) by mouth Once a day Pharmacy Information [facility] #35619: [address], [place] [phone] What How Much When Comments Stop Taking [...] you. Follow these instructions at home: Take myka-dyj-bptklhx and prescription medicines only as told by [...] 03/19/2015 Document Revised: 08/22/2019 Document Reviewed: 05/06/2018 Showcase-TV Patient Education 2020 [employer]. Hemorrhage hemorrhage is excessive blood loss after [...] spinach, red meat, and legumes. Take any vyhh-otl-hqxkurx and prescription medicines only as told by [...] 10/05/2004 Document Revised: 06/28/2018 Document Reviewed: 02/16/2017 Showcase-TV Patient Education 2020 [employer]. Home Care Instructions After Delivery After discharge [...] decreases and the color of blood gets nutritional assistant. Bright red and increased flow may reoccur [...] tender for several weeks. Take prescription or wmhi-nrj-vifqnyp medications for pain with your care givers [...] straining when trying to pass a stool. Zlhu-scw-jtnpazr medications, stool softeners, can be used. Check [...] to receive it can visit one of [facility] vaccine clinics. There are many vaccine clinic locations within the State. For locations and available times, please visit www.[email or web address]. It is important to note that some COVID mobile vaccine clinics are held outdoors and may be canceled in rainy orstormy conditions. To learn more about pediatric vaccinations (ages 5-11), we invite you to visit the [facility] webpage. https://www.[facility].org/pages/6823-Ehbxw-Hshmqfxknex-Suztjkdqez-Hgegy-Eci stions.htmlTo learn more about the COVID-19 vaccine, we invite you to visit the [facility] website for a list of frequently asked questions. https://e-[employer]/assets/Wndsjagf-ceg-Yugjefpf/kztli-Rgjkmib-Gqbbhdixiz _Asked-Questions.pdf [facility] Patient Portal Access Instructions: Stay connected with your healthcare team and access your personal medical information anytime with the [facility] Patient Portal.If you would like a full copy of your medical records, please contact the [facility] Medical Records Department, Sunday through Sunday between 8a.m. and 4:30p.m. Please follow the directions below to access the portal: 1.Access the email account you provided upon registration to the hospital.2.Look for an invitation email from [facility].3.Open the email and access the invitation link: Accept Invitation to [facility]4.Fill in the required french to create your account. Sign into [email or web address] with your username and password that you [...] you will allow to register on the [facility] Patient Portal for access to your information. You can also access the [facility] Patient Portal on the Jumbas lisette. Simply click on Health Records under [employer] and then click on the [employer] logo. HOW TO SAFELY DISPOSE OF PRESCRIPTION [...] Call your local pharmacy or go to http://Surya Power Magic.The Echo Nest/9Y5Cd1r to find one close to you.3.Make use of household items: Use cat litter or old coffee grounds to dispose medications if other options arenot available. Mix your drugs with these household products, seal them in an airtight container andthrow it into the garbage. Call [facility]: [phone] to be sure your drugs can be [...] been reviewed and explained to me and I,BETSY MESA understand my current condition and have read and understand these discharge instructions. I have received a written copy of the plan/instructions. If I have questions, I am aware that I should contact my d octor. Patient/Customer Support Analyst Signature: Date/Time: Relationship to Patient: Witness Name/Signature: Date/Time: [facility]3175 Discharge summary Discharge Diagnosis: (_x) IUP (_) [...] given Rubella: (_x) Rubella immune (_) Rubella gvn-dsydjd-Eebpjhr given (_) Rubella jiy-qgpcuz-Lzrpyiy declined Feeding Rhodes: (_) Breast feeding (_x) [...] SANTO BOWER DO on 03/07/2022 07:36 AM [facility] [id number] Note A. Received in formalin, labeled with [...] less than 15% ofthe overall disc volume. Customer Support Analyst sections in 3 cassettes. Dictated by BEN MANJARREZ [facility] 08-08-2022 Nurse Progress note pt not in room at 10 for post parandial blood sugar check I advised pt not to go outside until we remove iv but she is not compliant Digitally Signed by Mar Conway RN on 2022 10:05 AM [facility] [id number] Note A. Received in formalin, labeled with [...] less than 15% ofthe overall disc volume. Customer Support Analyst sections in 3 cassettes. Dictated by [facility] 08-08-2022 Note A. Received in formalin, labeled [...] less than 15% ofthe overall disc volume. Customer Support Analyst sections in 3 cassettes. Dictated by [facility] 08-08-2022 Note A. Received in formalin, labeled [...] less than 15% ofthe overall disc volume. Customer Support Analyst sections in 3 cassettes. Dictated by [facility] 08-07-2022 Evaluation + Plan noteExtracted from: Title:Clinical Document Author:GISELLE BROWNE MD Date:03/05/22 [facility] OB ADMISSION HISTORY AND PHYSICAL Chief complaint: [...] Vicodin; hives Review of systems: HEENT: Denies MEZA, change in vision Heart: Denies CP Lungs: [...] BS monitoring. PCN . Monitor per protocol. [facility] 08-07-2022 History and physical note [facility] ADMISSION HISTORY AND PHYSICAL Chief complaint: [...] Vicodin; hives Review of systems: HEENT: Denies MEZA, change in vision Heart: Denies CP Lungs: Denies SOB GI: No N/V, diarrhea Psych: No SI/HI Physical exam: Vitals Signs Minimum Maximum Temp36.7(MAR 05:)36.7(MAR 05:)36.7(MAR 05:) Heart Rate88(MAR 05:)88(MAR 05:)88(MAR 05:) Resp Rate18(MAR 05:)18(MAR 05:)18(MAR 05:) SBPH 154(MAR 05:)H 154(MAR 05:)H 154(MAR 05:) DBPC 108(MAR 05:)C 108(MAR 05:)C 108(MAR 05:) GENERAL: NAD, A&O x3 NEUROLOGICAL: A&Ox3, CN [...] GISELLE BROWNE MD on 03/05/2022 10:20 AM [facility] HospitalWjtblcra33-97-1594 Anesthesiology Consult note Patient: BETSY MESA Age: 26 years Sex: Female : 1995 Associated Diagnoses: None Author: HAKAN STEWARD APRN-MAX Preoperative Information Procedure/ Case: labor epidural Anesthesiologist [...] ADD (attention deficit disorder) / SNOMED CT [id number] / Confirmed Gestational diabetes mellitus, class A>1< / SNOMED CT 744656272 / Confirmed Induction of labor / SNOMED CT 221201207 / Confirmed / SNOMED CT 673949074 / Confirmed / SNOMED CT 599881843 / Confirmed, Active Problems (8) ADD (attention deficit disorder) Gestational diabetes Gestational diabetes Gestational diabetes mellitus, class A>1< Induction of labor Tobacco use Histories Past Medical History: Active ADD (attention deficit disorder) ([id number]) Resolved (761600921): Onset on 10/23/2018 at 23 years. Resolved on 08/04/2019 at 24 years. Comments: 02/27/2017 EDT 15:51 EDT - SYSTEM System added from documentation. Status documented as Yes on Admission (909272831): Onset on 10/16/2016 at 21 years. Resolved in 2017 at 22 years. ([id number]): Onset on 10/20/2013 at 18 years. Resolved in 2014 at 19 years. (751938097): Onset on 08/16/2013 at 18 years. Resolved on 05/29/2014 at 19 years. Family History: Diabetes mellitus type 1 Sister Diabetes mellitus type 2 Mother Seizure Sister Procedure history: None (748862870). Social History Social & Psychosocial Habits Alcohol [...] Oral36.7 DegC (MAR 05 10:13) Heart Rate Jiswbagmt08 bpm (MAR 05 10:30) Resp Rate 18 br/min (MAR 05 10:13) BMI34.51 (MAR 05 10:05) Measurements from flowsheet : Measurements 03/05/2022 10:05 EDT Height 177.8 cm Admission Weight 109.1 kg [employer] Body Weight 68.50 kg BSA Admission 2.26 [...] Height 177.8 cm Admission Weight 109.1 kg [employer] Body Weight 68.50 kg BSA Admission 2.26 [...] Risk Factors More than 4 previous deliveries Infant Feeding Bottle Anesthesia/Pain Medication During Labor Epidural/Spinal Baby For Adoption No Surrogate No Tubal Sterilization Planned No Discharge Physician darien Written Plan No WIC Participant [...] No Safety Brochure Information Reviewed Yes [facility] Pete Video Viewed No Teaching Evaluation Needs practice/supervision Preferred Written Language Sri Lankan Preferred Spoken Language Sri Lankan Chief Complaint labor Mode of Arrival Wheelchair Accompanied by Significant other, Sibling Information Given by Patient Patient's Current Physicians [facility] Emergency Contact Number Emergency Contact Number Belongings [...] Documentation reviewed: Current records. Assessment and Plan [place] Society of Anesthesiologists (ASA) physical status classification: Class III. Anesthetic Preoperative Plan Anesthetic technique: Epidural. Regional: Epidural. Postoperative pain management: Per surgeon. Risks discussed: nausea, vomiting, headache, sore throat, dental injury, hypotension, allergic reaction, serious complications, PDPH. Informed consent: signed by patient. Notes: preg., current 1/2 PPD smoker, obesity BMI 34.5, reflux/GERD, GDM requiring insulin, gTCP. Digitally Signed by HAKAN STEWARD on 03/05/2022 10:51 AM [facility] HospitalEdjdlmvp07-06-7229 History and physical note [facility] ADMISSION HISTORY AND PHYSICAL Chief complaint: [...] Vicodin; hives Review of systems: HEENT: Denies MEZA, change in vision Heart: Denies CP Lungs: [...] GISELLE BROWNE MD on 03/05/2022 10:20 AM [facility] [id number] History and physical note [facility] ADMISSION HISTORY AND PHYSICAL Chief complaint: [...] Vicodin; hives Review of systems: HEENT: Denies MEZA, change in vision Heart: Denies CP Lungs: [...] GISELLE BROWNE MD on 03/05/2022 10:20 AM [facility] HospitalVzcsuuew79-10-2427 Hospital Discharge instructions Patient Education 01/18/2022 06:55:38 7 - Labor and Delivery Outpatient Instructions(CUSTOM) [facility] LABOR AND DELIVERY OUTPATIENT HOME-GOING INSTRUCTIONS _X_ [...] crackers, bananas, Jell-O, cooked carrots, applesauce. ___ [place] diet. Avoid caffeine, chocolate, alcohol, spiced/greasy foods. [...] the nearest Emergency Room for assistance. Form 731304 D: 07/07 Document Released: 07/16/2006 Document Revised: 07/04/2012 Document Reviewed: 07/16/2006 ExitCare Patient Information 2012 [employer]. Follow Up Care 01/17/2022 14:26:45 With:GATITO ODOM DO Address: [address] [place] [phone] When: Unknown Comments:Follow-up as scheduled [facility] 01-09-2022 Hospital Discharge instructions Patient Education 08/07/2021 [...] for support. Classes and counselors. Quit-smoking classes agile coach people like you through the process. [...] your health. For more information National Cancer [place] Smoking Quitline, smokeBloomfire.gov/obdnp-vk-mc-expert, 083-76P-HMHF ([phone]) [phone] The [employer]. [address] [place] [address]. All rights reserved. This information is not [...] cloves at drugstores. Some pharmacies carry an tjbd-bqb-lcxgklc toothache kit. This contains a paste that you can put on the exposed tooth to make it less sensitive. Put a cold pack on your jaw over the sore area to help reduce pain. You may use uqev-wzr-iaixmkn medicine to ease pain, unless another medicine [...] Pus drains from the tooth or gum [phone] The [employer]. [address] [place] [address]. All rights reserved. This information is not intended as a substitute for professional medical care. Always follow yourhealthcare professional's instructions. Follow Up Care 08/07/2021 16:21:41 With:Dental Referral List Address:Unknown When:2-4 days [facility] 10-20-2021 Hospital Discharge instructions Patient Education 05/18/2021 [...] the smoke from others. You may use insp-pls-dbfianl acetaminophen or ibuprofen for fever, muscle aching, [...] body and be dangerous to your health. Odid-cag-isyxtrf remedies won't shorten the length of the [...] or as directed by your healthcare provider [phone] The [employer]. [address] [place] [address]. All rights reserved. This information is not intended as a substitute for professional medical care. Always follow yourhealthcare professional's instructions. Follow Up Care 05/18/2021 12:09:33 With:Call Physician Referral Address:Unknown When:2-4 days [facility] 08-17-2021 Hospital Discharge instructions* Instructions* Carlitos English, TAPE KELLER OPERATOR - DATA WAREHOUSE ANALYST - 03/15/2021 In the medical field, there [...] be sent through Care Everywhere. * Cough (Sri Lankan) documented in this [facility] Work Phone: 1(796) 204-207908-09-2021 Taisha independently performed a history and physical on [place]. All diagnostic, treatment, and disposition decisions [...] 0024 regular rhythm tachycardic rate 142 bpm. MA interval prolonged 220 milliseconds. QRS complex narrow. QTC normal. No ST segment elevations or depressions. No abnormal T-wave inversions. Good R-wave progression through precordial leads. Interpretation of this EKG myself in the absence of a ruby on rails web developer is first-degree AV block, sinus tachycardia. Interpretation [...] prescription for Macrobid. For further details of [place]'s emergency department encounter, please see documentation [...] provider for clarification. Isreal Kincaid MD 03/07/[address] [place], [place] [address]Evaluation + Plan note No data available for this section [facility] Evaluation + Plan note Future Appointments Appointment Date:05/26/2024 01:30:00 PM Scheduled Provider:ARLINE CORADO Location:[facility] Appointment Type:PC OV Follow Up [facility] Evaluation + Plan note Future Appointments Appointment Date:11/21/2024 03:30:00 PM Scheduled Provider:ARLINE CORADO Location:[facility] Appointment Type:PC OV Follow Up Future Scheduled Tests Laboratory* Thyroid Stimulating Hormone 04/25/24 * Free T4 04/25/24 * Free T3 04/25/24 Radiology* US Breast Left Complete 09/15/24 [facility] Evaluation note* Diagnosis 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 note* Diagnosis with uncertain viability, single or unspecified fetus- Primary with uncertain dates in first trimester documented in this encounter [facility] note* Diagnosis Positive test- Primary examination or test, positive result Threatened miscarriage Threatened , unspecified as to episode of care with uncertain dates in first trimester Spotting affecting in first trimester [facility] Diagnosis with uncertain dates in first trimester [facility] Diagnosis Incomplete - Primary Unspecified , without mention of complication, incomplete Threatened miscarriage Threatened , unspecified as to episode of care documented in this encounter [facility] noteNo assessment information availableWProMedica Memorial Hospital Work Phone: Hospital Discharge instructions* Instructions* Isreal Kincaid MD - 03/07/2021 [facility] Long-term residential drug and alcohol rehabilitation services [address] [facility] [phone] [facility] crisis Center 24 hour detox and drop in. Central assessment 8 AM4 PM for adults. [address] [phone] [facility] HeartDanfoss IX[employer] S[employer] TechnologiesMagee Rehabilitation HospitalMary Appointment only for outpatient treatment services M, W, Th 9AM-9PM, T F 9AM-530PM [address] [facility] [phone] Al-Anon and Alateen M-F 10AM-2PM [phone] or [phone] Alcoholics Anonymous [address] [facility] M-F 9AM-5 PM, Sa 9AM-1 PM [phone] [facility] Outpatient/Inpatient/Detox for adults [address] [facility] [phone] Adolescents Treatment/Detox [address] [facility] [phone] [facility] Alcohol and drug counseling and groups. [address] [place] [address] [facility] Drug, alcohol, gambling, and mental health treatment. M-F 8AM-4:30PM [address] [phone], ext [phone] Narcotics Anonymous 24 hour Hotline 9-724-GKWHOPE or [facility] Sober living housing, counseling, vocational education, job referral, recovery coaching [address] [facility] [phone] [facility] Alcohol and Drug Counseling Call for treatment appointment and prevention [address] [facility] [phone] * Attachments The following attachments cannot be sent through Care Everywhere. * UTI (Urinary Tract Infection): Female (Sri Lankan) * Substance Use Disorder (Sri Lankan) [facility] Work Phone: Hospital Discharge instructions No data available for this section [facility] Hospital Discharge instructionsNo known hospital discharge instructions.[facility] Discharge instructions* Additional Discharge Instructions Ani thomas [facility] Office for appointment to be seen. Instruction/Education Provided DI for Va ginal Bleeding [facility] Discharge instructions Additional Instructions Your labs and CAT scan were all good. Follow-up with your primary care physician.[facility] Work Phone: Hospital Discharge instructionsAdditional Instructions Your scan did not show any sign of skull fracture or brain bleed indicating the pain is from soft tissue contusion. You can ice the area to help reduce pain and swelling and also continue the prescribed ibuprofen. Return to the ER should you have any further concerns [facility] Work Phone: Progress note No data available for this section [facility] Reason for referral (narrative)* Diagnostic Procedure Only (Routine) - Authorized Specialty Diagnoses / Procedures Referred By Contac t Referred To Contact [facility] Diagnoses with uncertain dates in first trimester Procedures PELVIC US WHI US PELVIC NONOBSTETRIC REAL-TIME IMAGE COMPLETE Sushil Villanueva APRN.CNP [address] [place] [address] [facility] [address] [place] [address] Referral ID Status Reason Start Date Expiration Date Visits Requested Visits Authorized [id number] Authorized Auto-Generat ed Referral 04/28/2024 04/28/2025 1 1 [facility] Hospital[facility] for referral (narrative)No reason for referral information availableWProMedica Memorial Hospital Work Phone: Reason for visit Narrative* Diagnostic Procedure Only (Routine) - Closed Specialty Diagnoses / Procedures Referred By Contac t Referred To Contact [facility] Diagnoses with uncertain dates in first trimester Procedures PELVIC US WHI US PELVIC NONOBSTETRIC REAL-TIME IMAGE COMPLETE YahirLarissa packily, TAPE KELLER OPERATOR.DATA WAREHOUSE ANALYST [address] 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 No January 11, 2025 10:21pm Advance Directive Response Recorded Date/ Time Do you have a Healthcare Power of Urban Forester? No January 11, 2025 10:21pm Do you have a Healthcare Power of Urban Forester? No February 05, 2025 1:16am Chief Complaint and Reason for Visit Chief Complaint Admit Date NUMBNESS, C/O January 11, 2025 9:47 pm Chief Complaint Admit Date NUMBNESS, C/O January 11, 2025 9:47 pm head injury February 05, 2025 1:12 am Additional Source Comments INFORMATION SOURCE (unrecogn ized section and content) DATE CREATED AUTHOR 01/22/2018 [facility] DATE CREATED AUTHOR AUTHOR'S ORGANIZ ATION 05/05/2019 [facility] DATE CREATED AUTHOR AUTHOR'S ORGANIZ ATION 04/09/2021 [email or web address] DATE CREATED AUTHOR AUTHOR'S ORGANIZ ATION 12/07/2021 [facility] DATE CREATED AUTHOR AUTHOR'S ORGANIZ ATION 01/04/2022 [facility] [place] DATE CREATED AUTHOR AUTHOR'S ORGANIZ ATION 10/10/2022 [facility] DATE CREATED AUTHOR AUTHOR'S ORGANIZ ATION 10/18/2023 [facility] DATE CREATED AUTHOR AUTHOR'S ORGANIZ ATION 12/12/2023 [facility] DATE CREATED AUTHOR AUTHOR'S ORGANIZ ATION 03/22/2024 [facility] ([place] DATE CREATED AUTHOR AUTHOR'S ORGANIZ ATION 05/11/2024 [facility] DATE CREATED AUTHOR AUTHOR'S ORGANIZ ATION 06/01/2024 [facility] DATE CREATED AUTHOR AUTHOR'S ORGANIZ ATION 08/31/2024 [facility] DATE CREATED AUTHOR AUTHOR'S ORGANIZ ATION 02/15/2025 [facility] DATE CREATED AUTHOR AUTHOR'S ORGANIZ ATION 03/01/2025 [facility] DATE CREATED AUTHOR AUTHOR'S ORGANIZ ATION 03/11/2025 [facility] DATE CREATED AUTHOR AUTHOR'S ORGANIZ ATION 03/17/2025 [facility] Reason for Visit (unrecogniz ed section and [...] 1 dose 2214 (Given - Provid er: Jose Beckett, TRUMAN) cefTRIAXone (ROCEPHIN) 500 mg in lidocaine 1 % 1 mL IM Injection (COMPLETED) 500 mg, Intramuscular, ONCE, On Sun03/15/21 at 2100, For 1 dose 2147 (Given - Provid er: Jose Beckett, TRUMAN) doxycycline monohydrate (MONODOX) capsule 100 mg (COMPLETED) 100 mg, Oral, ONCE, On Sun03/15/21 at 2100, For 1 dose, This medication can interact with tube feedings (TF)- obtain MD order to manage. Recommend holding TF for 1 h before and 2 h after dose. Take 1 h before or 2 h after dairy, calcium, iron, magnesium, aluminum or zinc. 2147 (Given - Provid er: Jose Beckett, TRUMAN) metroNIDAZOLE (FLAGYL) tablet 2,000 mg (COMPLETED) 2,000 mg, Oral, ONCE, On Sun03/15/21 at 2100, For 1 dose 2147 (Given - Provid er: Jose Beckett RN) Scheduled Medication Order 09/24/2022 09/25/2022 09/26/2022 0.9 % sodium chloride bolus (COMPLETED) 1,000 mL (10.4 mL/kg), IntraVENous, at 495.9 mL/hr, Administer over 121 Minutes, ONCE, On Sun09/26/22 at 2045, For 1 dose 2102 (New Bag - Prov ider: Martha Varela RN)2335 (Stopped - Provider: Martha Varela RN) PRN Medication Order 09/24/2022 09/25/2022 09/26/2022 iopamidol (ISOVUE-370) 76 % injection 75 mL (COMPLETED) 75 mL, IntraVENous, IMG ONCE PRN, 1 dose, Starting on Sun09/26/22 at 2218, Until Sun09/26/22 at 2227, Other 2227 (Given - Provid er: Erica Avila - Comment: [id number] XP 04/23) Source Comments (unrecognize d section and content) In the event this informatio n is protected by the Federal Confidentiality of Alcohol and Drug Abuse Patient Records regulations: The Federal rules restrict any use of the information to criminally investigate or prosecute any alcohol or drug abuse patient.[facility] Hospital[facility] the event this information is protected by the Federal Confidentiality of Alcohol and Drug Abuse Patient Records regulations: The Federal rules restrict any use of the information to criminally investigate or prosecute any alcohol or drug abuse patient.[facility] HospitalIn the event this information is protected by the Federal Confidentiality of Alcohol and Drug Abuse Patient Records regulations: The Federal rules restrict any use of the information to criminally investigate or prosecute any alcohol or drug abuse patient.[facility] HospitalIn the event this information is protected by the Federal Confidentiality of Alcohol and Drug Abuse Patient Records regulations: The Federal rules restrict any use of the information to criminally investigate or prosecute any alcohol or drug abuse patient.[facility] HospitalIn the event this information is protected by the Federal Confidentiality of Alcohol and Drug Abuse Patient Records regulations: The Federal rules restrict any use of the information to criminally investigate or prosecute any alcohol or drug abuse patient.[facility] HospitalIn the event this information is protected by the Federal Confidentiality of Alcohol and Drug Abuse Patient Records regulations: The Federal rules restrict any use of the information to criminally investigate or prosecute any alcohol or drug abuse patient.[facility] HospitalIn the event this information is protected by the Federal Confidentiality of Alcohol and Drug Abuse Patient Records regulations: The Federal rules restrict any use of the information to criminally investigate or prosecute any alcohol or drug abuse patient.[facility] Care Team (unrecognized sect ion and content) Care Team Personnel Name: PHYSICIAN, NONE Position: Physician Member Role: Primary Care Physician Name: Jocelyn Ojeda RN Position: OB RN Member Role: RN Name: Chris Vidal RN Position: OB RN Member Role: RN Care Team Related Persons Name: DIANA COLON Address: Home [address] [place] [address] [place] [address] [place] Name: DIANA COLON Address: Home [address] [place] [address] Name: STEPHANIE MESA-VIRAJ-GENARO Address: Home [address] [place] [address] [place] Name: CARA BARCENAS Name: CARA BARCENAS Name: CARA BARCENAS Name: CARA BARCENAS Name: AMELIA LANDEROS Address: Home [address] [place] [address] [place] Care Teams (unrecognized sec tion and content) Team Status: Active Member Role/Relationship Status Dates ARLINE CORADO Primary Care Provider Active Team Status: Inactive Member Role/Relationship Status Dates No Primary Care Physician Primary Care Provider Active Start: January 11, 2025 End: January 12, 2025 Dr. Oseas Aviles MD Attending Provider Active S tart: January 11, 2025 End: January 12, 2025 Dr. Oseas Aviles MD Emergency Provider Active S tart: January 11, 2025 End: January 12, 2025 Team Status: Inactive Member Role/Relationship Status Dates Dr. Nelson Ulloa DO Emergency Provider Active Start: February 05, 2025 End: February 05, 2025 MICKIE YOUNG Primary Care Provider Active Start: February 05, 2025 End: February 05, 2025 Team Status: Active Member Role Status Dates No Primary Care Physician Primary Care Provider Active Team Status: Inactive Member Role Status Dates No Primary Care Physician Primary Care Provider Active Start: January 11, 2025 End: January 12, 2025 Dr. Oseas Aviles MD Emergency Provider Active S tart: January 11, 2025 End: January 12, 2025 Dye Operator Relationship Specialty Start Date End Date PcpEstrella APRN PCP - General Adult Health 02/05/24 08/29/24 Care Team Personnel Name: ARLINE CORADO APRN-DATA WAREHOUSE ANALYST Position: P4 Advanced Precision Machining Instructor Member Role: Primary Care Physician Address: Address: [address] [place] [address] [place] [address]- Care Team Related Persons Name: CARA BARCENAS Dye Operator Relationship Specialty Start Date End Date PcpEstrella APRN PCP - General Adult Health 08/25/23 03/29/24 Goals (unrecognized section and content) Goals may be documented in a n alternate section FOR RECORDS PERTAINING TO PATIENTS WHO ARE [...] BE BASED ON THE PRIMARY CLINICAL RECORDS. [facility]. provides no warranty or guarantee of the accuracy or completeness of information in this document.
[2025-03-23 00:32] LABS: Internal QC Validated? YES +Cl - CLEAR BKGD; Pregnancy, Serum, hCG Quali. NEGATIVE Negative
[2025-03-23 00:33] LABS: Record Kit Lot#, Serum Preg. 0000962302
[2025-03-23 00:43] LABS: Anion Gap 11 (5-15); BUN 9 mg/dL (4-19); BUN/Creat Ratio 11.9 RATIO (10-20); Calcium,Total 9.0 mg/dL (7.6-11.0); Carbon Dioxide 23.8 mmol/L (21.0-32.0); Chloride 105 mmol/L (98-108); Estimated Creatinine Clearance 138.70 ml/min (50-250); Glucose 136 mg/dL (70-99); Magnesium 2.1 mg/dL (1.5-2.2); Potassium 3.5 mmol/L (3.3-5.1)
--- NOTE | 2025-03-23 00:56 | EX.ED.DYSGE1 ---
HPI History of Present Illness Chief Complaint: General Illness Informant: patient Narrative Narrative: Patient is a 30-year-old female with past medical history of anxiety. She states that she took 4 home test today that were positive. She also reports in the last 1 to 2 days she has noticed a sore throat with lightheaded sensation and has had increased loose stool. She denies any known sick contacts. She states she went to an outside hospital today where she was checked for strep and was negative and she also states they did a urine test which was also negative. The patient states she does not understand how her home test could be positive yet the ER is negative and with concern for potentially missed or secondary infection she presents for evaluation [facility] Medical History Anxiety Paresthesias Cervical radiculopathy Cervicalgia Home Medications ?Medication ?Instructions ?Recorded ?Last Taken ?Type metformin 500 mg tablet 500 mg PO DAILY 04/03/24 Unknown History ibuprofen 600 mg tablet 600 mg PO 4X/DAY PRN pain #40 tabs 02/05/25 Unknown Rx Allergy/AdvReac Type Severity Reaction Status Date / Time acetaminophen (From Vicodin) Allergy Hives Verified 03/22/25 23:27 hydrocodone (From Vicodin) Allergy Hives Verified 03/22/25 23:27 Family History Other Cancer Diabetes Seizures Social History Smoking Status: Current every day smoker tobacco type: cigarettes Tobacco: How many years used: 6 second hand exposure: Yes alcohol intake: current alcohol intake frequency: holidays/special occasions only substance use type: former substance user Date of last use: used some marijuana in the past ROS ROS ED Constitutional Constitutional ED: Denies chills or fever(s) Eyes Eyes: Denies change in vision ENT ENT ED: Reports sore throat Cardiovascular Cardiovascular: Reports other Details: Negative syncope ; Denies chest pain, palpitations or racing heartbeat Respiratory/Chest Respiratory/Chest: Denies cough or dyspnea Gastrointestinal Gastrointestinal: Reports other Details: Positive loose stool but negative for diarrhea ; Denies abdominal pain, diarrhea, nausea or vomiting Genitourinary Genitourinary ED: Denies dysuria Musculoskeletal Musculoskeletal: Denies myalgias Integumentary Denies rash Neurologic Neurologic: Reports other Details: Positive lightheadedness ; Denies headache(s) Hematologic/Lymphatic Hematologic/Lymphatic: Denies easy bleeding or easy bruising EXAM Physical Exam Const Vital Signs: 03/22/25 23:22 03/22/25 23:27 03/23/25 01:40 Temperature 99 F 99 F Temperature Source Oral Pulse Rate 79 80 Respiratory Rate 16 16 Respiratory Effort Normal Non-Labored Respiratory Pattern Normal Blood Pressure 130/97 H 128/88 H Blood Pressure Mean 108 101 Pulse Ox 100 100 Oxygen Delivery Method Room Air Positive well nourished and well developed General Appearance ED: well developed; Negative for pallor HEENT Reports moist mucous membranes HEENT Narrative: Normocephalic atraumatic No tongue or lip swelling no oral lesions no airway edema or compromise There is cobblestoning noted in the posterior pharynx consistent with sinus drainage but no secondary findings to suggest infection Eyes PERRL and EOMs intact bilaterally General Eye ED: Negative for scleral icterus Neck supple Neck Narrative: No nuchal rigidity or meningeal signs Resp normal respiratory effort and clear to auscultation bilaterally Cardio regular rate and regular rhythm Rate: other Other Details: Regular rate and rhythm without murmurs rubs or gallop Radial and carotid pulses are equal and symmetric GI non-tender, non-distended and no masses GI Narrative: Abdomen is soft nontender and nondistended with hyperactive bowel sounds. No voluntary guarding or rigidity or pulsatile mass. Auscultation: hyperactive bowel sounds Palpation: soft Back/Spine no CVA tenderness Extremity normal to inspection Extremity Narrative: No asymmetric edema no pitting edema negative Homans' sign bilaterally Neuro oriented x3, CN's II-XII intact bilaterally and no sensory deficits noted Neuro Narrative: GCS of 15 Cranial nerves II through XII are grossly intact without focal neurologic deficit No pronator drift no dysmetria no truncal ataxia NIH stroke scale score of 0 Sensorium / Orientation: alert Motor Exam: strength 5/5 throughout Psych mental status grossly normal Skin no rashes or lesions noted and no wounds General Skin Exam: Negative for jaundice or pallor MDM MDM MDM Narrative Medical decision making narrative: Patient arrived to ER slightly hypertensive but overall stable vitals. She reported symptoms that appear more viral in nature with sore throat and mild GI upset. Physical exam does not suggest strep plus patient reports this was checked earlier today and was negative so I felt no need for repeat strep screen. As she does report lightheadedness there is concern for acute blood loss anemia versus acute kidney injury versus clinically significant electrolyte abnormality. As she reports that she has had home test that are positive I did elect to perform a serum test. The patient's blood work reveals no sign of leukocytosis or left shift. It shows no signs of acute blood loss anemia or acute kidney injury or electrolyte abnormality. Her test is also negative. At this time the patient's abdomen is soft and nonsurgical her vitals are stable her neurologic exam normal. Her workup reveals no clinically significant findings and as I am not having a positive test indicating potential complication or finding KAI or significant hypokalemia or hypomagnesemia I do not feel there is need for further intervention other than 1 L of IV fluid and patient is otherwise safe for discharge History & Record Review Discussion w/independent historian: Patient Lab Data Attestation: I reviewed the patient's lab results. Labs: Laboratory Results - last 24 hr 03/22/25 23:33 WBC 7.4 RBC 3.93 L Hgb 11.1 L Hct 33.4 L MCV 85.0 MCH 28.2 MCHC 33.2 RDW Std Deviation 47.3 H RDW Coeff of Ghada 15.2 H Plt Count 210 MPV 11.4 Immature Gran % (Auto) 0.100 Neut % (Auto) 48.1 Lymph % (Auto) 42.1 H Cavalier % (Auto) 6.6 Eos % (Auto) 2.6 Baso % (Auto) 0.5 Absolute Neuts (auto) 3.5 Absolute Lymphs (auto) 3.11 Nucleated RBC % 0 Sodium 139 Potassium 3.5 Chloride 105 Carbon Dioxide 23.8 Anion Gap 11 BUN 9 Creatinine 0.79 Estim Creat Clear Calc 138.70 Est GFR (MDRD) Non-Af 103 BUN/Creatinine Ratio 11.9 Glucose 136 H Calcium 9.0 Magnesium 2.1 Serum , Qual NEGATIVE Discharge Plan Triage Chief Complaint: General Illness ED Provider: Nelson Ulloa Dx/Rx/DC Orders Clinical Impression: Viral syndrome, Anxiety Instructions: ED Viral Syndrome (Adult) Prescriptions: No Action metformin 500 mg tablet 500 mg PO DAILY ibuprofen 600 mg tablet 600 mg PO 4X/DAY PRN (Reason: pain) Qty: 40 0RF Primary Care Provider: ARLINE CORADO Referrals: ARLINE CORADO [Other] Activity Restrictions/Additional Instructions: Your blood work today revealed no clinically significant findings and the blood test for was negative. Your history exam and symptoms are most consistent with a viral infection. This should resolve spontaneously over the course of 7 to 10 days. Return to the ER should you have any further concerns Print Language: Sierra Leonean Disposition Disposition: Home, Self Care Discharge Date/Time: 03/23/25 01:41
[2025-03-23 01:40] VITALS: BP 128/88; PULSE 80; RESP 16; TEMP 37.2; O2SAT 100
== END 2025-03-23 01:41 | disposition home or self-care (01) ==
PROVIDERS: Emergency Provider Emergency Medicine; Visit Provider Emergency Medicine
DX: F41.9 Anxiety disorder, unspecified (principal); B34.9 Viral infection, unspecified; F17.210 Nicotine dependence, cigarettes, uncomplicated
CPT/HCPCS: 80048; 83735; 84703; 85025; 96360; 96361; 99283; A4216

== ENCOUNTER 2025-05-03 19:29 | Emergency (ER) | payer MEDICAID, SELFPAY ==
[2025-05-03 19:30] VITALS: BP 140/94; PULSE 84; RESP 18; TEMP 36.6; O2SAT 98; BMI 34.4
--- NOTE | 2025-05-03 20:23 | US_ITS ---
PROCEDURE: TRANSVAGINAL W/PREG US 05/03/2025 REASON FOR EXAM: PELVIC CRAMPING TECHNIQUE: Procedure Code: [id number] Modality: US Procedure: TRANSVAGINAL W/PREG US FINDINGS The uterus measures 12.6 x 8.9 x 7.3 cm. Within the uterine cavity, there is a gestational sac with a mean sac diameter of 10 mm, suggestive of an estimated gestational age of 5 weeks 5 days +/-10 days. No pole nor yolk sac is identified at this time. Mixed echogenic areas noted within the lower uterine cavity, measuring 2.6 x 2.5 x 0.9 cm in aggregate, probably representing nonspecific fluid. The right ovary is not visualized. No abnormal right adnexal mass or fluid collection. The left ovary is identified, measuring 3.9 x 3.2 x 2.5 cm. No focal lesion. Color Doppler blood flow is demonstrated within the left ovary. No abnormal left adnexal mass or fluid collection. No free fluid within the pelvis. US/Transvaginal w/Preg US IMPRESSION: 1. Intrauterine gestational sac with an estimated gestational age of 5 weeks 5 days +/-10 days by mean sac diameter. No pole nor yolk sac is identified at this time. This likely represents a very ea rly intrauterine . Recommend serial beta HCG levels and a short interval follow-up pelvic ultrasound. 2. Mixed echogenic area within the lower uterine cavity, probably representing nonspecific fluid. Attention should be paid on follow-up imaging. Reading Location: [id number]
--- OUTSIDE RECORDS SUMMARY | 2025-05-03 20:34 | XMS RPT_ITS | CCD ---
Author Organization [facility] Care Team Providers Care Social Worker Psychiatric Name Role Phone Unavailable Primary Care Provider Unavailabl e PHYSICIAN, NONE Primary Care Physician Unavailab le NONE, NONE Consulting Unavailable NONE, NONE Primary Care Unavailable COOPER TERRY MD Attending Unavailable COOPER TERRY MD Admitting Unavailable Unavailable Primary Care Provider Unavailabl e Alvin Pryor Emergency Provider Call, On Primary Care Provider Unavailabl e Celso Mitchell Primary Care Provider [phone] Unavailable Primary Care Provider UnavailMARCELO Gotti Attending Unavailable Jeremy Lim Emergency Provider Alex Avila Primary Care Provider Vern Henry Emergency Provider Ruben Jacob Primary Care Provider [phone] Juan Tidwell Emergency Provider Call, On Primary Care Unavailable Jeremy Lim Attending Unavailable Call, On Primary Care Unavailable Vern Henry Attending Unavailable Call, On Primary Care Unavailable Leandra Keller Attending Unavailable Call, On Primary Care Unavailable Juan Tidwell Attending Unavailable Pcp HAND CLOTH EXAMINER, Estrella Primary Care Provider Unavailabl e MICKIE HAND CLOTH EXAMINER-SUPERVISOR STOCK RANCH, ARLINE Suarez Primary Care Physicia n HIRA LANGLEY MD Attending Unavailable MICKIE HAND CLOTH EXAMINER-SUPERVISOR STOCK RANCHARLINE Primary Care Unava ilbree KAHNSUPERVISOR STOCK RANCHABDI Attending Unavaila MARCELO Ventura DO Primary Care Unavailab martha MAGALLANES MD, DR JOSÉ MIGUEL Waters Attending Unavailable MARCELO ISBELL DO Primary Care Unavailab ERLINDA Vigil PA-C Attending Unavailabl e MARCELO ISBELL DO Primary Care Unavailab le JASBIR DO, MARCELO Waters Primary Care Unavailab le GALINDO HAND CLOTH EXAMINER-SUPERVISOR STOCK RANCH, LIZETTE Attending Unavailtaylor LANGLEY MD, HIRA Carrington Attending Unavailable MICKIE HAND CLOTH EXAMINER-SUPERVISOR STOCK RANCH, ARLINE M Primary Care Unava ilable MICKIE HAND CLOTH EXAMINER-SUPERVISOR STOCK RANCH, ARLINE M Attending Unava ilable MICKIE HAND CLOTH EXAMINER-SUPERVISOR STOCK RANCH, ARLINE M Primary Care Unava ilable SURYA HAND CLOTH EXAMINER-SUPERVISOR STOCK RANCH, ABDI Attending Unavaila ble JASBIR DO, MARCELO Waters Primary Care Unavailab martha WILLINGHAM PA-C, ERLINDA Fuller Attending Unavailabl e JASBIR DO, MARCELO Waters Primary Care Unavailab martha MAGALLANES MD, DR JOSÉ MIGUEL Waters Attending Unavailable MARCELO ISBELL DO Primary Care Unavailab martha MAGALLANES MD, DR JOSÉ MIGUEL Waters Attending Unavailable JASBIR DO, MARCELO Waters Primary Care Unavailab le SURYA HAND CLOTH EXAMINER-SUPERVISOR STOCK RANCH, ABDI Attending Unavaila ble JASBIR JOHN, MARCELO Waters Primary Care Unavailab martha MAGALLANES MD, DR JOSÉ MIGUEL Waters Attending Unavailable JASBIR DO, MARCELO Waters Primary Care Unavailab martha WILLINGHAM PA-C, ERLINDA Fuller Attending Unavailabl e JASBIR DO, MARCELO Waters Primary Care Unavailab le Pcp HAND CLOTH EXAMINER, No Primary Care Provider Unavailabl e HAURY, SUSHIL Referring Unavailable HAURY, SUSHIL Referring Unavailable HAURY, SUSHIL Attending Unavailable SELF Referring Unavailable HAURY, SUSHIL Referring Unavailable LEELA CURRIE Attending Unavailable HAURY, SUSHIL Referring Unavailable JOSE ARANDA Attending Unavailable HAURY, SUSHIL Referring Unavailable MICKIE HAND CLOTH EXAMINER-SUPERVISOR STOCK RANCH, ARLINE Suarez Primary Care Unava ilable DELL KHANNA MD Attending Unavailable Care Physician, No Primary Primary Care Provider Unavailable Dr. Oseas Aviles MD Emergency Provider [phone] Dr. Oseas Aviles MD Attending Provider [phone] Dr. Nelson Ulloa DO Emergency Provider ARLINE CORADO Primary Care Provider ARLINE CORADO Primary Care Unavailabl e MICKIE HAND CLOTH EXAMINER-SUPERVISOR STOCK RANCH, ARLINE M Primary Care Unava ilable MICHEAL LANIER, JOSE VANEGAS Attending Unavailable Dr. Nelson Ulloa DO Attending Provider [phone] Care Physician, No Primary Primary Care Unava ilable Abhinav Sofia Attending Unavailable Care Physician, No Primary Primary Care Unava ilable René Mohan Attending Unavailable Nelson Ulloa Attending Unavailable Care Physician, No Primary Primary Care Unava ilable Care Physician, No Primary Primary Care Unava ilable Trae Kessler Attending Unavailable Nelson Ulloa Attending Unavailable DONG, JENN1 Primary Care Unavailable Care Physician, No Primary Primary Care Unava ilable René Mohan Attending Unavailable Nelson Ulloa Attending Unavailable DONG, JENN1 Primary Care Unavailable Nelson Ulloa Attending Unavailable DONG, JENN1 Primary Care Unavailable Care Physician, No Primary Primary Care Unava ilable Oseas Aviles Attending Unavailable Care Physician, No Primary Primary Care Unava ilable Nelson Ulloa Attending Unavailable Oseas Aviles Attending Unavailable Care Physician, No Primary Primary Care Unava ilable MICKIE HAND CLOTH EXAMINER-SUPERVISOR STOCK RANCH, ARLINE Suarez Attending Unava ilable MICKIE HAND CLOTH EXAMINER-SUPERVISOR STOCK RANCH, ARLINE Suarez Primary Care Unava ilable JULIAN ALONZO, PAMELA King Attending Unavailable MICKIE HAND CLOTH EXAMINER-SUPERVISOR STOCK RANCH, ARLINE Suarez Primary Care Unava ilable MARLENA LOWERY DO Attending Unavailable MICKIE HAND CLOTH EXAMINER-SUPERVISOR STOCK RANCH, ARLINE M Primary Care Unava ilable LUCRETIA ALONZO, DR MARIANNA Wood Attending Unavailabl e MICKIE HAND CLOTH EXAMINER-SUPERVISOR STOCK RANCH, ARLINE M Primary Care Unava ilable MICKIE HAND CLOTH EXAMINER-SUPERVISOR STOCK RANCH, ARLINE M Attending Unava ilable MICKIE HAND CLOTH EXAMINER-SUPERVISOR STOCK RANCH, ARLINE M Primary Care Unava ilable MICKIE HAND CLOTH EXAMINER-SUPERVISOR STOCK RANCH, ARLINE M Primary Care Unava ilable MICKIE HAND CLOTH EXAMINER-SUPERVISOR STOCK RANCH, ARLINE M Attending Unava ilable MICKIE HAND CLOTH EXAMINER-SUPERVISOR STOCK RANCH, ARLINE M Primary Care Unava ilable MICKIE HAND CLOTH EXAMINER-SUPERVISOR STOCK RANCH, ARLINE Suarez Attending Unava ilable Allergies Allergy Classification Reported Allergen(s) Allergy Type Date of Onset Reaction(s) Facility (15 sources) Acetaminophen / HYDROcodone; Translations: [acetaminophen-hy drocodone] Drug Allergy 2 [facility] (16 sources) Acetaminophen; Translations: [ACETAMINOPHEN] Drug Allergy 1 [facility] (16 sources) HYDROcodone; Translations: [HYDROCODONE] Drug Allergy 1 [facility] (4 sources) Acetaminophen / HYDROcodone; Translations: [HYDROCODONE-ACET AMINOPHEN] Drug Allergy 2 Hives, [facility] (1 source) Acetaminophen Drug Allergy 4 [facility] (1 source) HYDROcodone Drug Allergy 4 [facility] (1 source) Acetaminophen Drug Allergy 5 [facility] (1 source) HYDROcodone Drug Allergy 5 [facility] Medications Current Medications Medication Drug Class(es) Dates Sig (Normalized) Sig (Original) Tylenol (7 sources) Start: 02-05-2024 Tylenol 0 Refi ll(s) Start Date: 02/05/24 Status: Ordered Medication Dispense Status: Completed Total Allowed Fills: 1 Fills Dispensed: 0 Start: 02-05-2024 Tylenol 0 Refi ll(s) Start [...] on above: Take 2 tablets by mo [facility] every 6 hours as needed for Pain. acetaminophen 300 mg / butalbital 50 mg / caffeine 40 mg oral capsule (4 sources) Barbiturate, Central Nervous System Stimulant, Methylxanthine [...] Repeat number: 1 Start: 05-18-2024 End: 06-16-2024 Ukedhldjea-Fxcwobqtmcpug-Qad f (Fioricet) 50-300-40 mg capsule Discontinued 1 NMA PO THREE TIMES A DAY as needed for pain May 18, 2024 12:00am June 16, 2024 7:06am amLODIPine 5 mg oral tablet (4 sources) Dihydropyridine Calcium Channel Andrew Start: 12-12-2023 take 1 tablet by mouth once daily amLODIPine (NORVASC) 5 mg tablet Take 1 tablet by mouth once daily. 30 tablet 12/12/2023 Active Blood Glucose Test Machine (3 sources) Start: 03-05-2024 Blood Glucose Test Machine See Instructions, 1 glucometer, # 1 EA, 0 Refill(s), Pharmacy: [facility] #[id number], Type 2 diabetes mellitus, 177.8, cm, 02/19/24 15:03:00 EDT, Height, 93, kg, 02/05/24 15:51:00 EDT, Dosing Weight Start Date: 03/05/24 Status: Ordered Medication Dispense Status: Completed Quantity: 1.0 Unit: EA Total Allowed Fills: 1 Fills Dispensed: 0 Indications: Type 2 diabetes mellitus without complications; Start: 03-05-2024 Blood Glucose Test Machine See Instructions, 1 glucometer, # 1 EA, 0 Refill(s), Pharmacy: [facility] #[id number], Type 2 diabetes mellitus, 177.8, cm, 02/19/24 15:03:00 EDT, Height, 93, kg, 02/05/24 15:51:00 EDT, Dosing Weight Start Date: 03/05/24 Status: Ordered Quantity: 1.0 Unit: EA Repeat number: 1 Indications: Type 2 diabetes mellitus without complications; Start: 03-05-2024 Blood Glucose Test Machine See Instructions, 1 glucometer, # 1 EA, 0 Refill(s), Pharmacy: [facility] #[id number], Type 2 diabetes mellitus, 177.8, cm, 02/19/24 [...] Ordered cyclobenzaprine hydrochloride 5 mg oral tablet (5 sources) Muscle Relaxant Start: 03-07-2022 End: 03-14-2022 cyclobenzaprine 5 mg oral tablet Dose : 5 mg = 1 tab(s), Oral, TID, X 7 day(s), # 21 tab(s), 0 Refill(s), 03/14/22 5:57:00 EDT, Pharmacy: [facility] #[id number], 177.8, cm, 03/05/22 10:05:00 EDT, Height Start [...] 12:00am April 03, 2024 6:17am Dexcom G7 Mary Alice (3 sources) Start: 08-22-2024 Dexcom G7 Read er See Instructions, Use reader daily for blood sugar checks. Keep reader within 20 feet of the sensor and transmitter, # 1 EA, 0 Refill(s), Pharmacy: [facility] #[id number], Type 2 diabetes mellitus, 177.8, cm, 08/22/24 14:59:00 EST, Height, 102.3, kg, 08/22/24 14:59:00 EST, Dosing Weight Start Date: 08/22/24 Status: Ordered Medication Dispense Status: Completed Quantity: 1.0 Unit: EA Total Allowed Fills: 1 Fills Dispensed: 0 Indications: Type 2 diabetes mellitus without complications; Start: 08-22-2024 Dexcom G7 Read er See Instructions, Use reader daily for blood sugar checks. Keep reader within 20 feet of the sensor and transmitter, # 1 EA, 0 Refill(s), Pharmacy: [facility] #[id number], Type 2 diabetes mellitus, 177.8, cm, 08/22/24 [...] transmitter, # 1 EA, 0 Refill(s), Pharmacy: [facility] #[id number], Type 2 diabetes mellitus, 177.8, cm, 08/22/24 14:59:00 EST, Height, 102.3, kg, 08/22/24 14:59:00 EST, Dosing Weight Start Date: 08/22/24 Status: Ordered Quantity: 1.0 Unit: EA Repeat number: 1 Indication: Type 2 diabetes mellitus without complications Dexcom G7 Sensor (3 sources) Start: 08-22-2024 Dexcom G7 Sens or See Instructions, Place once sensor to the back of the upper arm every 10 days. Use reader or phone lisette for daily blood sugar checks. 1 month supply., # 3 EA, 0 Refill(s), Pharmacy: [facility] #[id number], Type 2 diabetes mellitus, 177.8, cm, 08/22/24 14:59:00 EST, Height, 102.3, kg, 08/22/24 14:59:00 EST, Dosing Weight Start Date: 08/22/24 Status: Ordered Medication Dispense Status: Completed Quantity: 3.0 Unit: EA Total Allowed Fills: 1 Fills Dispensed: 0 Indications: Type 2 diabetes mellitus without complications; Start: 08-22-2024 Dexcom G7 Sens or See Instructions, Place once sensor to the back of the upper arm every 10 days. Use reader or phone lisette for daily blood sugar checks. 1 month supply., # 3 EA, 0 Refill(s), Pharmacy: [facility] #[id number], Type 2 diabetes mellitus, 177.8, cm, 08/22/24 [...] supply., # 3 EA, 0 Refill(s), Pharmacy: [facility] #[id number], Type 2 diabetes mellitus, 177.8, cm, 08/22/24 14:59:00 EST, Height, 102.3, kg, 08/22/24 14:59:00 EST, Dosing Weight Start Date: 08/22/24 Status: Ordered Quantity: 3.0 Unit: EA Repeat number: 1 Indication: Type 2 diabetes mellitus without complications DEXCOM G7 SENSOR (2 sources) Start: 12-23-2024 DEXCOM G7 SENS OR DEXCOM G7 SENSOR, See Instructions, PLACE ONE SENSOR ON THE BACK OF THE UPPER ARM EVERY 10 DAYS. USE READER OR PHONE LISETTE FOR DAILY BLOOD SUGAR CHECKS, # 3 EA, 0 Refill(s), Pharmacy: [facility] #[id number], 177.8, cm, 08/22/24 14:59:00 EST, Height, 102.3, kg, 08/22/24 14:59:00 EST, Dosing Weight Start Date: 12/23/24 Status: Ordered Medication Dispense Status: Completed Quantity: 3.0 Unit: EA Total Allowed Fills: 1 Fills Dispensed: 0 Start: 12-23-2024 DEXCOM G7 SENS OR DEXCOM G7 SENSOR, See Instructions, PLACE ONE SENSOR ON THE BACK OF THE UPPER ARM EVERY 10 DAYS. USE READER OR PHONE LISETTE FOR DAILY BLOOD SUGAR CHECKS, # 3 EA, 0 Refill(s), Pharmacy: [facility] #[id number], 177.8, cm, 08/22/24 14:59:00 EST, Height, 102.3, kg, 08/22/24 14:59:00 EST, Dosing Weight Start Date: 12/23/24 Status: Ordered Quantity: 3.0 Unit: EA Repeat number: 1 docusate sodium 100 mg oral capsule (1 source) Start: 03-07-2022 Colace 100 mg oral capsule Dose : 100 mg = 1 cap(s), Oral, BID, PRN as needed for constipation, # 20 cap(s), 0 Refill(s), Pharmacy: [facility] #[id number], 177.8, cm, 03/05/22 10:05:00 EDT, Height Start Date: 03/07/22 Status: Ordered famotidine 20 mg oral tablet (2 sources) Histamine-2 Receptor Antagonist Start: 01-17-2022 Pepcid 20 mg oral tablet Dose : 20 mg = 1 tab(s), Oral, qDay, # 30 tab(s), 0 Refill(s) Start Date: 01/17/22 Status: Ordered ibuprofen 600 mg oral tablet (19 sources) Nonsteroidal Anti-inflammatory Drug Start: 02-05-2025 ibuprofen 600 mg oral tablet Dose : 600 mg = 1 tab(s), Oral, q6h, PRN for pain, Take with food or milk., # 40 tab(s), 0 Refill(s), Pharmacy: [facility] #[id number], 177.8, cm, 03/22/25 16:06:00 EDT, Height, kg, 03/22/25 16:06:00 EDT, Dosing Weight Start Date: 03/22/25 Status: Ordered Medication Dispense Status: Completed Quantity: 40.0 Unit: tab(s) Total Allowed Fills: 1 Fills Dispensed: 0 Start: 07-12-2024 End: 02-05-2025 take 1 tablet by mouth every six hours as needed for pain Ibuprofen 600 mg tablet Discontinued 600 mg PO EVERY 6 HOURS NEEDED as needed for fever or pain July 12, 2024 1:00am February 05, 2025 1:18am Start: 02-05-2024 Advil 0 Refill (s) Start Date: 02/05/24 Status: Ordered Medication Dispense Status: Completed Total Allowed Fills: 1 Fills Dispensed: 0 Start: 02-05-2024 Advil 0 Refill (s) Start [...] # 40 tab(s), 0 Refill(s), [facility]acy: [facility] #[id number], 177.8, cm, 03/05/22 10:05:00 EDT, Height Start [...] daily, # 15 mL, 5 Refill(s), Pharmacy: [facility] #[id number], 177.8, cm, 03/05/22 10:05:00 EDT, Height Start Date: 03/07/22 Status: Ordered metFORMIN hydrochloride 500 mg oral tablet (11 sources) Biguanide Start: 11-21-2024 take 1 tablet by mouth once daily metFORMIN 500 mg oral tablet (IR) 1 tab(s), Oral, qDay, # 90 tab(s), 1 Refill(s), Pharmacy: [facility] #[id number], 177.8, cm, 08/22/24 14:59:00 EST, Height, kg, 08/22/24 14:59:00 EST, Dosing Weight Start Date: 11/21/24 Status: Ordered Medication Dispense Status: Completed Quantity: 90.0 Unit: tab(s) Total Allowed Fills: 1 Fills Dispensed: 0 Start: 12-11-2023 End: 07-09-2024 take 1 tablet by mouth once daily metFORMIN 500 mg oral tablet (IR) 1 tab(s), Oral, qDay, # 90 tab(s), 1 Refill(s), Pharmacy: [facility] #[id number], 177.8, cm, 08/22/24 14:59:00 EST, Height, kg, 08/22/24 14:59:00 EST, Dosing Weight Start Date: 11/21/24 Status: Ordered Quantity: 90.0 Unit: tab(s) Repeat number: 1 naproxen sodium 550 mg oral tablet (9 [...] Drug Class(es) Dates Sig (Normalized) Sig (Original) [id number] 200 actuat albuterol 0.09 mg/actuat metered dose inhaler (1 source) beta2-Adrenergic Agonist Start: 03-15-2021 End: 03-15-2021 albuterol sulfate HFA 108 (90 Base) MCG/ACT inhaler 2 puff amoxicillin 500 mg oral tablet (3 sources) Penicillin-class Antibacterial Start: 07-12-2024 End: 08-08-2024 [...] 2023 Active clindamycin 300 mg oral capsule (3 sources) Lincosamide Antibacterial Start: 08-08-2024 End: 02-05-2025 [...] DULoxetine 60 mg delayed release oral capsule (9 sources) Serotonin and Norepinephrine Reuptake Inhibitor Start: 06-09-2021 End: 06-16-2024 take 1 capsule by mouth once daily Duloxetine 60 mg capsule,delayed release(DR/EC) Discontinued 60 mg PO DAILY 30 June 09, 2021 1:00am June 16, 2024 7:07am begin after completing one week course of duloxetine 30mg daily Start: 06-01-2021 End: 06-16-2024 take 1 capsule by mouth once daily Duloxetine 30 mg capsule,delayed release(DR/EC) Discontinued 30 mg PO DAILY 7 June 09, 2021 1:00am June 16, 2024 7:07am ferrous sulfate 325 mg delay ed release oral tablet (9 sources) Start: 08-29-2024 End: 12-27-2024 ferrous sulfate 325 mg (65 m g elemental iron) oral delayed release tablet Dose : 325 mg = 1 tab(s), Oral, BID, # 60 tab(s), 3 Refill(s), [id number], 177.8, cm, 08/22/24 14:59:00 EST, Height, kg, 08/22/24 14:59:00 EST, Dosing Weight Start Date: 08/29/24 Stop Date: 12/27/24 Status: Ordered Medication Dispense Status: Completed Quantity: 60.0 Unit: tab(s) Total Allowed Fills: 4 Fills Dispensed: 0 Start: 04-03-2024 End: 06-16-2024 Ferrous Sulfate (Ferosul) [...] 1 tablet by preston th twice daily. metroNIDAZOLE 500 mg oral tablet [...] [Zofran Odt] 4 MG PO EVERY SIX [id number] PRN 20 May 12, 2023 May 17, 2023 Discontinued Odxvlsyx-Rd-Ujd-Fe-FA ( VITAMIN) tab (2 sources) Start: 02-03-2019 take 1 tablet by mouth once daily Xovlsgho-Uv-Azc-Fe -FA ( VITAMIN) tab Take 1 tablet by mouth once daily. 30 tablet 11 02/03/2019 Suspended Start: 02-03-2019 take 1 tablet by preston th once daily Rhpugqed-Gt-Jyz-Fe-FA ( VITAMIN) tab Take 1 tablet by [...] mg / trimethoprim 160 mg oral tablet (3 sources) Dihydrofolate Reductase Inhibitor Antibacterial, Sulfonamide Antimicrobial Start: 05-25-2021 End: 06-01-2021 Sulfamethoxazole-Trimethopri m (Bactrim Ds) 800-160 mg tablet Discontinued 1 {tbl} PO TWICE A DAY May 25, 2021 12:00am June 01, 2021 2:29pm vitamin b6 50 mg oral tablet (2 sources) Start: 01-06-2019 take 1 tablet by mouth once daily pyridoxine, vitamin B6, (VITAMIN B-6) 50 mg tablet Take 1 tablet by mouth once daily. 30 tablet 0 01/06/2019 Suspended Comment on above: Take 1 tablet by preston once daily. Problems Active Problems Problem Classification Problem Date Documented Date Episodic/Chronic Anxiety disorders (4 sources) Anxiety; Translations: [Anxiety disorder, unspecified] Onset: 03-27-2025 06-01-2021 Chronic Attention-deficit, conduct, and disruptive behavior disorders (9 sources) Attention deficit hyperactivity disorder, predominantly inattentive type 12-20-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 Cardiac dysrhythmias (7 sources) Palpitations; Translations: [Palpitations] Onset: 05-12-2023 04-11-2024 Episodic Conditions associated with dizziness or vertigo (1 source) Dizziness and giddiness; Translations: [Dizziness and giddiness] Onset: 08-11-2023 Episodic Deficiency and other anemia (10 sources) Anemia; Translations: [Anemia, unspecified] 02-19-2024 Episodic Deficiency and other anemia (3 sources) Iron deficiency anemia 08-22-2024 Episodic Diabetes mellitus without complication (3 sources) Type 2 diabetes mellitus 08-22-2024 Chronic Diabetes mellitus without complication (4 sources) Prediabetes 02-19-2024 Episodic Diabetes or abnormal glucose tolerance complicating ; childbirth; or the puerperium (6 sources) Gestational diabetes mellitus, class A>1< 01-17-2022 Episodic Disorders of teeth and jaw (1 source) Carious exposure of pulp ; Translations: [Dental caries on pit and fissure surface penetrating into pulp] Onset: 08-07-2021 Episodic Essential hypertension (2 sources) Hypertensive disorder; Translations: [Essential (primary) hypertension] Onset: 09-26-2022 Chronic Fluid and electrolyte disorders (4 sources) Hypokalemia 02-19-2024 Episodic Headache; including migraine (1 source) Headache; including migraine; Translations: [Headache, unspecified] Onset: 06-08-2024 Hemorrhage during ; abruptio placenta; placenta previa (2 sources) Threatened miscarriage; Translations: [Threatened ] 05-01-2024 Episodic Induced (1 source) Delayed or excessive hemorrhage following (induced) termination of ; Translations: [Delayed or excessive hemorrhage following (induced) termination of ] Onset: 10-14-2023 Episodic Malaise and fatigue (6 sources) Fatigue; Translations: [Other fatigue] Onset: 08-11-2023 06-10-2021 Episodic Mycoses (4 sources) Candidiasis of vagina 02-19-2024 Episodic Nausea and vomiting (3 sources) Nausea; Translations: [Nausea] Onset: 08-11-2023 Episodic Nonspecific chest pain (7 sources) Atypical chest pain; Translations: [Other chest pain] 05-06-2021 Episodic Other complications of (14 sources) Headache; Translations: [Other specified related conditions, [...] lower limb Episodic Other connective tissue disease (3 sources) Localized swelling of right upper limb; Translations: [Other specified soft tissue disorders] 06-02-2021 Episodic Other connective tissue disease (3 sources) Ganglion cyst; Translations: [Ganglion, unspecified site] Onset: 02-18-2025 Episodic Other connective tissue disease (1 source) Other muscle spasm; Translations: [Other muscle spasm] Onset: 03-10-2025 Episodic Other connective tissue disease (1 source) Ganglion, unspecified site; Translations: [Ganglion, unspecified site] Onset: 02-18-2025 Episodic Other female genital disorders (1 source) Vaginal bleeding; Translations: [Abnormal uterine and vaginal bleeding, unspecified] Chronic Other female genital disorders (1 source) Abnormal uterine bleeding; Translations: [Abnormal uterine and vaginal bleeding, [...] conditions due to external causes (2 sources) Closed injury of head; Translations: [Unspecified injury of head, initial encounter] 02-05-2025 Episodic Other injuries and conditions due to external causes (1 source) Unspecified injury of head, initial encounter; Translations: [Unspecified injury of head, initial encounter] Onset: 02-11-2025 Episodic Other lower respiratory disease (3 sources) Dyspnea; Translations: [Dyspnea, unspecified] 05-16-2024 Episodic Other nervous system disorders (3 sources) Polyneuropathy; Translations: [Polyneuropathy, unspecified] 06-09-2021 Chronic Other nervous system disorders (6 sources) Paresthesia; Translations: [Paresthesia of skin] 01-12-2025 Episodic Other nervous system disorders (3 sources) Paresthesia of hand ; Translations: [Paresthesia of skin] 05-06-2021 Episodic Other nervous system disorders (1 source) Paresthesia of skin; Translations: [Paresthesia of skin] Onset: 01-16-2025 Episodic Other non-traumatic joint disorders (4 sources) Hip pain 02-19-2024 Episodic Other non-traumatic joint disorders (1 source) Wrist joint pain; Translations: [Pain in unspecified wrist] Onset: 02-18-2025 Episodic Other non-traumatic joint disorders (2 sources) Pain in wrist 02-18-2025 Episodic Other non-traumatic joint disorders (1 source) Pain in unspecified wrist; Translations: [Pain in unspecified wrist] Onset: 02-18-2025 Episodic Other nutritional; endocrine; and metabolic disorders (5 sources) Obese class I; Translations: [Obesity, unspecified] Onset: 12-10-2023 12-10-2023 Chronic Other and delivery including normal (10 sources) ; Translations: [ with uncertain dates] Onset: 01-17-2022 01-01-2022 Episodic Comment on above: System added from do cumentation. Status documented as Yes on Admission Other skin disorders (3 sources) Axillary hidradenitis suppurativa; Translations: [Hidradenitis suppurativa] 06-02-2021 Episodic Other upper respiratory infections (9 sources) Upper respiratory infection; Translations: [Acute upper respiratory infection, unspecified] Onset: 08-15-2024 04-11-2024 Episodic Residual codes; unclassified (1 source) Tobacco user; Translations: [Tobacco use] Onset: 08-07-2021 Episodic Residual codes; unclassified (3 sources) Insomnia; Translations: [Insomnia, unspecified] 06-24-2024 Episodic Skin and subcutaneous tissue infections (1 source) Acute lymphangitis of neck; Translations: [Acute lymphangitis of neck] Onset: 08-07-2021 Episodic Spondylosis; intervertebral disc disorders; other back problems (8 sources) Pain in thoracic spine; Translations: [Cervical radiculopathy] Onset: 02-13-2023 06-01-2021 Episodic Spontaneous (1 source) with abortive outcome; Translations: [Incomplete spontaneous without complication] 05-06-2024 Episodic Substance-related disorders (6 sources) Methamphetamine abuse; 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, uncomplicated] Onset: 12-10-2023 Chronic Superficial injury; contusion (2 sources) Contusion of scalp; Translations: [Contusion of scalp, initial encounter] 02-05-2025 Episodic Unclassified (5 sources) Induction of labor Onset: 05-28-2014 05-28-2014 Unclassified (3 sources) Pain of left breast 08-22-2024 Unclassified (1 source) Other specified diseases and conditions complicating ; Translations: [Other specified diseases and conditions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 above: Performed By: #### F E, A1C, ANEU, FT3, FT4, CMP, GFR, ADIFF, FERR, TSH, CBC #### [facility] [address] [place] [address] UA Appear Clear Normal Clear [facility] Comment on above: Performed By: #### F E, A1C, ANEU, FT3, FT4, CMP, GFR, ADIFF, FERR, TSH, CBC #### [facility] [address] [place] [address] UA Blood Moderate Abnormal Neg-Trace [facility] Comment on above: Performed By: #### F E, A1C, ANEU, FT3, FT4, CMP, GFR, ADIFF, FERR, TSH, CBC #### [facility] [address] [place] [address] UA Leuk Est Trace Abnormal Negative [facility] Comment on above: Performed By: #### F E, A1C, ANEU, FT3, FT4, CMP, GFR, ADIFF, FERR, TSH, CBC #### [facility] [address] [place] [address] UA Nitrite Negative Normal Negative [facility] Comment on above: Performed By: #### F E, A1C, ANEU, FT3, FT4, CMP, GFR, ADIFF, FERR, TSH, CBC #### [facility] [address] [place] [address] UA pH 6.5 Normal 5.0 - 8.0 [facility] Comment on above: Performed By: #### F E, A1C, ANEU, FT3, FT4, CMP, GFR, ADIFF, FERR, TSH, CBC #### [facility] [address] [address] UA Protein Negative Normal Negative [facility] Comment on above: Performed By: #### F E, A1C, ANEU, FT3, FT4, CMP, GFR, ADIFF, FERR, TSH, CBC #### [facility] [address] [place] [address] UA Spec Grav 1.025 Normal 1.006-1.029 [facility] Comment on above: Performed By: #### F E, A1C, ANEU, FT3, FT4, CMP, GFR, ADIFF, FERR, TSH, CBC #### [facility] [address] [address] UA Specimen Type Clean Catch Normal [facility] Comment on above: Performed By: #### F E, A1C, ANEU, FT3, FT4, CMP, GFR, ADIFF, FERR, TSH, CBC #### [facility] [address] [address] UA Urobilinogen 0.2 E.U./dL Normal 0.2-1.0 [facility] Comment on above: Performed By: #### F E, A1C, ANEU, FT3, FT4, CMP, GFR, ADIFF, FERR, TSH, CBC #### [facility] [address] [address] Urobilinogen (U) [Mass/Vol] Negative Normal Negative [facility] Comment on above: Performed By: #### F E, A1C, ANEU, FT3, FT4, CMP, GFR, ADIFF, FERR, TSH, CBC #### [facility] [address] [address] UAMICon 03-22-2025 UA Bacteria 1+ /hpf Abnormal Negative [facility] Comment on above: Performed By: #### F E, A1C, ANEU, FT3, FT4, CMP, GFR, ADIFF, FERR, TSH, CBC #### [facility] [address] [address] UA Hyal Cast 0-2 Abnormal [facility] Comment on above: Performed By: #### F E, A1C, ANEU, FT3, FT4, CMP, GFR, ADIFF, FERR, TSH, CBC #### [facility] [address] [address] UA Mucous 2+ /hpf Normal [facility] Comment on above: Performed By: #### F E, A1C, ANEU, FT3, FT4, CMP, GFR, ADIFF, FERR, TSH, CBC #### [facility] [address] [address] UA RBC 5-10 Abnormal 0-2 [facility] Comment on above: Performed By: #### F E, A1C, ANEU, FT3, FT4, CMP, GFR, ADIFF, FERR, TSH, CBC #### [facility] [address] [address] UA Squam Epithelial 10-20 Normal 0-20 [facility] Comment on above: Performed By: #### F E, A1C, ANEU, FT3, FT4, CMP, GFR, ADIFF, FERR, TSH, CBC #### [facility] [address] [address] UA WBC 25-50 Abnormal 0-5 [facility] Comment on above: Performed By: #### F E, A1C, ANEU, FT3, FT4, CMP, GFR, ADIFF, FERR, TSH, CBC #### [facility] [address] [address] White blood cell (WBC) count Ordered By: Nelson Ulloa on 03-22-2025 WBC (Bld) [#/Vol] 7.4 10*3/uL 4.4-11.0 [facility] ED NOTEon 03-10-2025 ED NOTE HNO ID: [id number] Author: SERENA PARSONS, TRUMAN Service: ? Author Type: Registered Nurse Type: ED Notes Filed: 03/10/2025 01:43 Note Text: Pt name called in lobby at 0055, 0130 no answer. Normal [facility] XR WRIST MINIMUM 3 VIEWS RIG HTon [...] 02/18/2025 5:53:14 PM Ordering Provider: BERNADINE RAMOS [facility] Brain/Head without Contrasto n 02-05-2025 Brain/Head without Contrast [facility] Imaging Services [address] [place], [place] [address] Brain/Head without Contrast MR#: [id number] Acct: [id number] Name: BETSY MESA Rep #: [id number] : 1995 F 29 From: Emiliana johnson MD PCP: ARLINE CORADO Status: DEP ER Study: Brain/Head without Contrast Date of Exam: 01/27 Exam# [id number] Ordering Dr: Nelson Ulloa DO PROCEDURE: BRAIN/HEAD [...] clinical suspicion, correlate to MRI Reading [facility] [address] CC: Nelson Ulloa DO; ARLINE CORADO Senior Health Educator: Signed Normal [facility] Emergency Department Summary on 02-05-2025 Emergency Department Summary [facility] Medical Records Department [address] [place] [address] Emergency Department Summary 02/05/25 MR#: [id number] Acct: [id number] Name: BETSY MESA Rep #: [id number] : 1995 29 From: Nelson Ulloa DO [...] bleed and with this presents for evaluation [facility] Medical History Anxiety Paresthesias Cervical [...] are stab (more content not included)... Normal [facility] Absolute lymphocyte countOrd ered By: Oseas Aviles on 01-11-2025 Lymphocytes Auto (Unsp spec) [#/Vol] 2.39 10*3/uL 0.83-4.51 [facility] Absolute neutrophil countOrd ered By: Oseas Aviles on 01-11-2025 Neutrophils (Bld) [#/Vol] 3.8 10*3/uL 2.0-7.7 [facility] Anion gap in Serum or Plasma Ordered By: Oseas Aviles on 01-11-2025 Anion gap [Moles/Vol] 10 mmol/L 12-11 [facility] Automated lymphocyte count a s percentage of total leukocytesOrdered By: Oseas Aviles on 01-11-2025 Lymphocytes/100 WBC Auto (Unsp spec) 34.7 % [facility] BUN/creatinine ratioOrdered By: Oseas Aviles on 01-11-2025 Urea nitrogen/Creatinine [Mass ratio] 14.5 mg/mg 05-18 [facility] Basic Metabolic Profile (BMP )on 01-11-2025 BUN/CRE 14.5 RATIO Normal 05-18 [facility] Comment on above: Performed By: #### L 500.2500, L100.0100 #### [facility] Laboratory [address] [place], [address] Calcium [Mass/Vol] 9.3 mg/dL Normal 7.6-11.0 [facility] Comment on above: Performed By: #### L 500.2500, L100.0100 #### [facility] [address] [place], [address] Chloride [Moles/Vol] 106 mmol/L Normal 98-108 [facility] Comment on above: Performed By: #### L 500.2500, L100.0100 #### [facility] [address] [place], [address] CO2 [Moles/Vol] 22.4 mmol/L Normal 21.0-32.0 [facility] Comment on above: Performed By: #### L 500.2500, L100.0100 #### [facility] [address] [place], [address] Creatinine [Mass/Vol] 0.73 mg/dL Normal 0.70-1.20 [facility] Comment on above: Performed By: #### L 500.2500, L100.0100 #### [facility] [address] [place], [address] ECRCL 149.34 ml/min Normal 50-250 [facility] Comment on above: Performed By: #### L 500.2500, L100.0100 #### [facility] [address] [place], [address] GAP 10 Normal 5-15 [facility] Comment on above: Performed By: #### L 500.2500, L100.0100 #### [facility] [address] [place], [address] GFR/1.73 sq M.predicted among non-blacks MDRD (S/P/Bld) [Vol rate/Area] 114 mL/min/{1.73_m2} Normal >60 [facility] Comment on above: Result Comment: mL/m in/1.73m2 CKD-EPI Creatinine Equation (2020) Performed By: #### L 500.2500, L100.0100 #### [facility] [address] [place], [address] Glucose [Mass/Vol] 133 mg/dL High 70-99 [facility] Comment on above: Performed By: #### L 500.2500, L100.0100 #### [facility] [address] [place], [address] Potassium [Moles/Vol] 3.9 mmol/L Normal 3.3-5.1 [facility] Comment on above: Performed By: #### L 500.2500, L100.0100 #### [facility] [address] [place], [address] Sodium [Moles/Vol] 138 mmol/L Normal 133-145 [facility] Comment on above: Performed By: #### L 500.2500, L100.0100 #### [facility] [address] [place], [address] Urea nitrogen [Mass/Vol] 11 mg/dL Normal 4-19 [facility] Comment on above: Performed By: #### L 500.2500, L100.0100 #### [facility] [address] [place], [address] Basophil percentageOrdered B y: Oseas Aviles on 01-11-2025 Basophils/100 WBC (Bld) 0.4 % 0-1 [facility] Brain/Head without Contrasto n 01-11-2025 Brain/Head without Contrast [facility] Imaging Services [address] [place] [address] Brain/Head without Contrast MR#: [id number] Acct: [id number] Name: BETSY MESA Rep #: [id number] : 1995 F 29 From: Laurita Talley PCP: Care Physician,No Primary Status: REG ER Study: Brain/Head without Contrast Date of Exam: 12/28 12/21 Exam# [id number] Ordering Dr: Oseas Aviles MD PROCEDURE: BRAIN/HEAD [...] IMPRESSION: No acute intracranial process. Reading Location: [id number] CC: Dr. Oseas Aviles MD; No Primary Care Physician Senior Health Educator: Signed Normal [facility] CBC W/Diff, Automatedon 12-28 Absolute Lymph 2.39 X10 3/uL Normal 0.83-4.51 [facility] Comment on above: Performed By: #### L 500.2500, L100.0100 #### [facility] [address] [place], [address] Absolute Neut 3.8 X10 3/uL Normal 2.0-7.7 [facility] Comment on above: Performed By: #### L 500.2500, L100.0100 #### [facility] [address] [place], [address] Basophils/100 WBC (Bld) 0.4 % Normal 0-1 [facility] Comment on above: Performed By: #### L 500.2500, L100.0100 #### [facility] [address] [place], [address] Eosinophils/100 WBC (Bld) 2.6 % Normal 0-5 [facility] Comment on above: Performed By: #### L 500.2500, L100.0100 #### [facility] [address] [place], [address] Erythrocyte distribution width (RBC) [Ratio] 14.7 % High 11.6-14.6 [facility] Comment on above: Performed By: #### L 500.2500, L100.0100 #### [facility] [address] [place], [address] Hematocrit (Bld) [Volume fraction] 34.5 % Low 37-47 [facility] Comment on above: Performed By: #### L 500.2500, L100.0100 #### [facility] [address] [place], [address] Hemoglobin (Bld) [Mass/Vol] 11.1 g/dL Low 12.0-15.0 [facility] Comment on above: Performed By: #### L 500.2500, L100.0100 #### [facility] [address] [place], [address] IG% 0.300 Normal 0.0-0.9 [facility] Comment on above: Result Comment: IG% - Immature Granulocytes (promyelocytes, myelocytes and metamyelocytes) > 1% indicates that a LEFT SHIFT is Present. Performed By: #### L 500.2500, L100.0100 #### [facility] [address] [place], [address] Lymphocytes/100 WBC (Bld) 34.7 % Normal 19-41 [facility] Comment on above: Performed By: #### L 500.2500, L100.0100 #### [facility] [address] [place], [address] MCH (RBC) [Entitic mass] 27.5 pg Normal 27.0-32.0 [facility] Comment on above: Performed By: #### L 500.2500, L100.0100 #### [facility] [address] [place], [address] MCHC (RBC) [Mass/Vol] 32.2 g/dL Normal 32-36 [facility] Comment on above: Performed By: #### L 500.2500, L100.0100 #### [facility] [address] [place], [address] MCV (RBC) [Entitic vol] 85.6 fL Normal 81-99 [facility] Comment on above: Performed By: #### L 500.2500, L100.0100 #### [facility] [address] [place], [address] Monocytes/100 WBC (Bld) 7.3 % Normal 0-10 [facility] Comment on above: Performed By: #### L 500.2500, L100.0100 #### [facility] [address] [place], [address] Neutrophils/100 WBC (Bld) 54.7 % Normal 47-70 [facility] Comment on above: Performed By: #### L 500.2500, L100.0100 #### [facility] [address] [place], [address] Nucleated RBC (Bld) [#/Vol] 0 10*3/uL Normal 0-5 [facility] Comment on above: Performed By: #### L 500.2500, L100.0100 #### [facility] [address] [place], [address] Platelet mean volume (Bld) [Entitic vol] 10.6 fL Normal 6.2-12.0 [facility] Comment on above: Performed By: #### L 500.2500, L100.0100 #### [facility] [address] [place], [address] Platelets (Bld) [#/Vol] 208 10*3/uL Normal 150-450 [facility] Comment on above: Performed By: #### L 500.2500, L100.0100 #### [facility] [address] [place], [address] RBC (Bld) [#/Vol] 4.03 10*6/uL Low 4.2-5.4 [facility] Comment on above: Performed By: #### L 500.2500, L100.0100 #### [facility] [address] [place], [address] RDW SD 45.6 fl High 35.1-43.9 [facility] Comment on above: Performed By: #### L 500.2500, L100.0100 #### [facility] [address] [place], [address] WBC (Bld) [#/Vol] 6.9 10*3/uL Normal 4.4-11.0 [facility] Comment on above: Performed By: #### L 500.2500, L100.0100 #### [facility] [address] [place], [address] Carbon dioxide, total [Moles /volume] in Central venous bloodOrdered By: Oseas Aviles on 01-11-2025 CO2 [Moles/Vol] 22.4 mmol/L 21.0-32.0 [facility] Chloride assayOrdered By: Nnamdi Aviles on 01-11-2025 Chloride [Moles/Vol] 106 mmol/L 98-108 [facility] Emergency Department Summary on 01-11-[address] [facility] Medical Records Department [address] [place] [address] Emergency Department Summary 01/11/25 MR#: [id number] Acct: [id number] Name: BETSY MESAAN Rep #: [id number] : 1995 29 From: Oseas Aviles MD [...] past with a negative workup done at [facility] 1 to 2 years ago. She denies any nausea, vomiting or diarrhea. No dysuria. No fever. She is on no blood thinners. Prior similar symptoms: Yes Recent Illness/Hospitalizatio n: No PFSH PFSH Medical History Anxiety Paresthesias Cervical [...] normal. NIH 0. No facial droop. 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 Fingertip to nose [id number] within normal limits. No drift. Const Vital [...] no scl (more content not included)... Normal [facility] Eosinophil percentageOrdered By: Oseas Aviles on 01-11-2025 Eosinophils/100 WBC (Bld) 2.6 % 0-5 [facility] Erythrocyte distribution wid th ratioOrdered By: Oseas Aviles on 01-11-2025 Erythrocyte distribution width (RBC) [Ratio] 14.7 % High 11.6-14.6 [facility] Erythrocyte distribution wid th standard deviationOrdered By: Oseas Aviles on 01-11-2025 Erythrocyte distribution width (RBC) [Ratio] 45.6 fl High 35.1-43.9 [facility] Glomerular filtration rate ( GFR) estimation/1.73 sq m using serum, plasma, or whole bOrdered By: Oseas Aviles on 01-11-2025 GFR/1.73 sq M.predicted among non-blacks MDRD (S/P/Bld) [Vol rate/Area] 114 mL/min/{1.73_m2} >60 [facility] Comment on above: mL/min/1.73m2 CKD-EP I Creatinine Equation (2020) Hematocrit Auto (Bld) [Volum e fraction]Ordered By: Oseas Aviles on 01-11-2025 Hematocrit (Bld) [Volume fraction] 34.5 % Low 37-47 [facility] Hemoglobin measurementOrdere d By: Oseas Aviles on 01-11-2025 Hemoglobin (Bld) [Mass/Vol] 11.1 g/dL Low 12.0-15.0 [facility] Immature granulocytes/100 WB C Auto (Bld)Ordered By: Oseas Aviles on 01-11-2025 Immature granulocytes/100 WBC (Bld) 0.300 % 0.0-0.9 [facility] Comment on above: IG% - Immature Granu locytes (promyelocytes, myelocytes and metamyelocytes) > 1% indicates that a LEFT SHIFT is Present. MCV (mean corpuscular volume ) determinationOrdered By: Oseas Aviles on 01-11-2025 MCV (RBC) [Entitic vol] 85.6 fL 81-99 [facility] Mean corpuscular hemoglobin (MCH) determinationOrdered By: Oseas Aviles on 01-11-2025 MCH (RBC) [Entitic mass] 27.5 pg 27.0-32.0 [facility] Mean corpuscular hemoglobin concentration (MCHC) determinationOrdered By: Oseas Aviles on 01-11-2025 MCHC (RBC) [Mass/Vol] 32.2 g/dL 32-36 [facility] Mean platelet volume determi nationOrdered By: Oseas Aviles on 01-11-2025 Platelet mean volume (Bld) [Entitic vol] 10.6 fL 6.2-12.0 [facility] Monocyte percentageOrdered B y: Oseas Aviles on 01-11-2025 Monocytes/100 WBC (Bld) 7.3 % 0-10 [facility] Neutrophil percentageOrdered By: Oseas Aviles on 01-11-2025 Neutrophils/100 WBC (Bld) 54.7 % 47-70 [facility] Nucleated red blood cell per centageOrdered By: Oseas Aviles on 01-11-2025 Nucleated RBC/100 WBC (Bld) [Ratio] 0 % 0-5 [facility] Platelet countOrdered By: Nnamdi Aviles on 01-11-2025 Platelets (Bld) [#/Vol] 208 10*3/uL 150-450 [facility] Potassium measurement (mass/ volume)Ordered By: Oseas Aviles on 01-11-2025 Potassium (Unsp spec) [Mass/Vol] 3.9 mmol/L 3.3-5.1 [facility] RBC Auto (Bld) [#/Vol]Ordere d By: Oseas Aviles on 01-11-2025 RBC (Bld) [#/Vol] 4.03 10*6/uL Low 4.2-5.4 [facility] Serum creatinine measurement (mass/volume)Ordered By: Oseas Aviles on 01-11-2025 Creatinine [Mass/Vol] 0.73 mg/dL 0.70-1.20 [facility] Serum glucose measurement (m ass/volume)Ordered By: Oseas Aviles on 01-11-2025 Glucose [Mass/Vol] 133 mg/dL High 70-99 [facility] Serum or plasma calcium jelani urement (mass/volume)Ordered By: Oseas Aviles on 01-11-2025 Calcium [Mass/Vol] 9.3 mg/dL 7.6-11.0 [facility] Serum or plasma urea nitroge n measurement (mass/volume)Ordered By: Oseas Aviles on 01-11-2025 Urea nitrogen [Mass/Vol] 11 mg/dL 4-19 [facility] Sodium levelOrdered By: Oseas Aviles on 01-11-2025 Sodium [Moles/Vol] 138 mmol/L 133-145 [facility] White blood cell (WBC) count Ordered By: Oseas Aviles on 01-11-2025 WBC (Bld) [#/Vol] 6.9 10*3/uL 4.4-11.0 [facility] A1Con 08-23-2024 Glucose [Mass/Vol] 134 mg/dL High <=114 [facility] Comment on above: Result Comment: Sarah mated Average Glucose calculated by equation ((28.7xA1C)-46.7) Estimated average glucose (eAG) is a calculated value from Hemoglobin A1C and is signs sales representative of the average blood glucose level in the last 2-3 month period. Normal range: less than 114 mg/dL Performed By: #### F E, A1C, ANEU, FT3, FT4, CMP, GFR, ADIFF, FERR, TSH, CBC #### [facility] [address], [place] [address] HbA1c (Bld) [Mass fraction] 6.3 % Normal [facility] Comment on above: Result Comment: Inte rpretation of Hgb A1C results: <5.7% Normal 5.7% - 6.4% Prediabetes >6.4% Diabetes Samples from patients with hemolytic anemias or the presence of unstable hemoglobins like HbSS or HbSC will exhibit decreased glycated Hgb due to the shortened life span of the red cells. Results are not reliable in patients with chronic blood loss. Performed By: #### F E, A1C, ANEU, FT3, FT4, CMP, GFR, ADIFF, FERR, TSH, CBC #### [facility] [address], [place] [address] .Auto Diffon 08-22-2024 Basophil, Absolute 0.0 10 3/mcL Normal 0.0-0.3 [facility] Comment on above: Performed By: #### F E, A1C, ANEU, FT3, FT4, CMP, GFR, ADIFF, FERR, TSH, CBC #### [facility] [address], [place] [address] Basophils/100 WBC (Bld) 0.5 % Normal 0.0-2.5 [facility] Comment on above: Performed By: #### F E, A1C, ANEU, FT3, FT4, CMP, GFR, ADIFF, FERR, TSH, CBC #### [facility] [address], [place] [address] Eosinophil, Absolute 0.1 10 3/mcL Normal 0.0-0.7 [facility] Comment on above: Performed By: #### F E, A1C, ANEU, FT3, FT4, CMP, GFR, ADIFF, FERR, TSH, CBC #### [facility] [address], [place] [address] Eosinophils/100 WBC (Bld) 2.2 % Normal 0.0-6.0 [facility] Comment on above: Performed By: #### F E, A1C, ANEU, FT3, FT4, CMP, GFR, ADIFF, FERR, TSH, CBC #### [facility] [address], [place] [address] Lymphocyte, Absolute 2.3 10 3/mcL Normal 0.9-4.3 [facility] Comment on above: Performed By: #### F E, A1C, ANEU, FT3, FT4, CMP, GFR, ADIFF, FERR, TSH, CBC #### [facility] [address], [place] [address] Lymphocytes/100 WBC (Bld) 40.9 % High 20.0-40.0 [facility] Comment on above: Performed By: #### F E, A1C, ANEU, FT3, FT4, CMP, GFR, ADIFF, FERR, TSH, CBC #### [facility] [address], [place] [address] Monocyte, Absolute 0.4 10 3/mcL Normal 0.1-1.4 [facility] Comment on above: Performed By: #### F E, A1C, ANEU, FT3, FT4, CMP, GFR, ADIFF, FERR, TSH, CBC #### [facility] [address], [place] [address] Monocytes/100 WBC (Bld) 7.2 % Normal 2.0-13.0 [facility] Comment on above: Performed By: #### F E, A1C, ANEU, FT3, FT4, CMP, GFR, ADIFF, FERR, TSH, CBC #### [facility] [address], [place] [address] Neutrophils/100 WBC (Bld) 49.2 % Low 50.0-75.0 [facility] Comment on above: Performed By: #### F E, A1C, ANEU, FT3, FT4, CMP, GFR, ADIFF, FERR, TSH, CBC #### [facility] [address], [place] [address] .GFRon 08-22-2024 GFR Non- 87 ml/min/1.73sqm Normal [facility] Comment on above: Result Comment: GFR Population [...] 15 mL/min/1.73 square meters Performed By: #### F E, A1C, ANEU, FT3, FT4, CMP, GFR, ADIFF, FERR, TSH, CBC #### [facility] [address], [place] [address] GFR 106 ml/min/1.73sqm Normal [facility] Comment on above: Result Comment: GFR Population [...] 15 mL/min/1.73 square meters Performed By: #### F E, A1C, ANEU, FT3, FT4, CMP, GFR, ADIFF, FERR, TSH, CBC #### [facility] [address] [address] .NEUABSon 08-22-2024 Neutrophil, Absolute 2.7 10 3/mcL Normal 2.3-8.1 [facility] Comment on above: Performed By: #### F E, A1C, ANEU, FT3, FT4, CMP, GFR, ADIFF, FERR, TSH, CBC #### [facility] [address] [address] CBCon 08-22-2024 Erythrocyte distribution width (RBC) [Ratio] 17.9 % High 11.5-15.5 [facility] Comment on above: Performed By: #### F E, A1C, ANEU, FT3, FT4, CMP, GFR, ADIFF, FERR, TSH, CBC #### [facility] [address] [address] Hematocrit (Bld) [Volume fraction] 34.1 % Normal 34.0-46.0 [facility] Comment on above: Performed By: #### F E, A1C, ANEU, FT3, FT4, CMP, GFR, ADIFF, FERR, TSH, CBC #### [facility] [address] [address] Hgb 10.7 G/dL Low 12.0-16.0 [facility] Comment on above: Performed By: #### F E, A1C, ANEU, FT3, FT4, CMP, GFR, ADIFF, FERR, TSH, CBC #### [facility] [address] [address] MCH (RBC) [Entitic mass] 25.3 pg Low 27.0-33.0 [facility] Comment on above: Performed By: #### F E, A1C, ANEU, FT3, FT4, CMP, GFR, ADIFF, FERR, TSH, CBC #### [facility] [address] [address] MCHC 31.4 G/dL Low 32.0-36.0 [facility] Comment on above: Performed By: #### F E, A1C, ANEU, FT3, FT4, CMP, GFR, ADIFF, FERR, TSH, CBC #### [facility] [address] [address] MCV (RBC) [Entitic vol] 80.4 fL Normal 80.0-99.0 [facility] Comment on above: Performed By: #### F E, A1C, ANEU, FT3, FT4, CMP, GFR, ADIFF, FERR, TSH, CBC #### [facility] [address] [address] Platelet 215 10 3/mcL Normal 150-450 [facility] Comment on above: Performed By: #### F E, A1C, ANEU, FT3, FT4, CMP, GFR, ADIFF, FERR, TSH, CBC #### [facility] [address] [address] Platelet mean volume (Bld) [Entitic vol] 8.8 fL Normal 6.6-10.5 [facility] Comment on above: Performed By: #### F E, A1C, ANEU, FT3, FT4, CMP, GFR, ADIFF, FERR, TSH, CBC #### [facility] [address] [address] RBC 4.24 10 6/mcL Normal 4.10-5.30 [facility] Comment on above: Performed By: #### F E, A1C, ANEU, FT3, FT4, CMP, GFR, ADIFF, FERR, TSH, CBC #### [facility] [address] [address] WBC 5.6 10 3/mcL Normal 4.5-10.8 [facility] Comment on above: Performed By: #### F E, A1C, ANEU, FT3, FT4, CMP, GFR, ADIFF, FERR, TSH, CBC #### [facility] [address] [address] CMPon 08-22-2024 Albumin Level 3.8 G/dL Normal 3.4-5.0 [facility] Comment on above: Performed By: #### F E, A1C, ANEU, FT3, FT4, CMP, GFR, ADIFF, FERR, TSH, CBC #### [facility] [address] [address] Albumin/Globulin [Mass ratio] 1.0 {ratio} Low 1.1-1.8 [facility] Comment on above: Performed By: #### F E, A1C, ANEU, FT3, FT4, CMP, GFR, ADIFF, FERR, TSH, CBC #### [facility] [address] [address] ALP [Catalytic activity/Vol] 76 U/L Normal 45-117 [facility] Comment on above: Performed By: #### F E, A1C, ANEU, FT3, FT4, CMP, GFR, ADIFF, FERR, TSH, CBC #### [facility] [address] [address] ALT [Catalytic activity/Vol] 28 U/L Normal 12-78 [facility] Comment on above: Performed By: #### F E, A1C, ANEU, FT3, FT4, CMP, GFR, ADIFF, FERR, TSH, CBC #### [facility] [address] [address] AST [Catalytic activity/Vol] 17 U/L Normal 15-37 [facility] Comment on above: Performed By: #### F E, A1C, ANEU, FT3, FT4, CMP, GFR, ADIFF, FERR, TSH, CBC #### [facility] [address] [address] Bili Total 0.4 mg/dL Normal 0.2-1.0 [facility] Comment on above: Result Comment: Use of this assay is not recommended for patients undergoing treatment with eltrombopag due to the potential for falsely elevated results. Performed By: #### F E, A1C, ANEU, FT3, FT4, CMP, GFR, ADIFF, FERR, TSH, CBC #### [facility] [address] [address] BUN/Creatinine Ratio 9.0 ratio Low 10.0-22.0 [facility] Comment on above: Performed By: #### F E, A1C, ANEU, FT3, FT4, CMP, GFR, ADIFF, FERR, TSH, CBC #### [facility] [address] [address] Calcium [Mass/Vol] 8.6 mg/dL Normal 8.5-10.1 [facility] Comment on above: Performed By: #### F E, A1C, ANEU, FT3, FT4, CMP, GFR, ADIFF, FERR, TSH, CBC #### [facility] [address] [address] Chloride [Moles/Vol] 106 mmol/L Normal 98-107 [facility] Comment on above: Performed By: #### F E, A1C, ANEU, FT3, FT4, CMP, GFR, ADIFF, FERR, TSH, CBC #### [facility] [address] [address] CO2 [Moles/Vol] 26 mmol/L Normal 21-32 [facility] Comment on above: Performed By: #### F E, A1C, ANEU, FT3, FT4, CMP, GFR, ADIFF, FERR, TSH, CBC #### [facility] [address] [address] Creatinine [Mass/Vol] 0.78 mg/dL Normal 0.55-1.02 [facility] Comment on above: Result Comment: Test ing performed on Siemens Dimension [place] analyzer using a modified kinetic Patricio technique. Performed By: #### F E, A1C, ANEU, FT3, FT4, CMP, GFR, ADIFF, FERR, TSH, CBC #### [facility] [address] [address] Electrolyte Balance 4.0 mEq/L Normal 4.0-15.0 [facility] Comment on above: Performed By: #### F E, A1C, ANEU, FT3, FT4, CMP, GFR, ADIFF, FERR, TSH, CBC #### [facility] [address] [place], [place] [address] Globulin 3.7 G/dL Normal 2.5-4.6 [facility] Comment on above: Performed By: #### F E, A1C, ANEU, FT3, FT4, CMP, GFR, ADIFF, FERR, TSH, CBC #### [facility] [address], [place] [address] Glucose [Mass/Vol] 109 mg/dL High 70-100 [facility] Comment on above: Performed By: #### F E, A1C, ANEU, FT3, FT4, CMP, GFR, ADIFF, FERR, TSH, CBC #### [facility] [address] [id number] Potassium [Moles/Vol] 4.0 mmol/L Normal 3.5-5.1 [facility] Comment on above: Performed By: #### F E, A1C, ANEU, FT3, FT4, CMP, GFR, ADIFF, FERR, TSH, CBC #### [facility] [address], [place] [address] Sodium [Moles/Vol] 136 mmol/L Normal 136-145 [facility] Comment on above: Performed By: #### F E, A1C, ANEU, FT3, FT4, CMP, GFR, ADIFF, FERR, TSH, CBC #### [facility] [address] [phone] Total Protein 7.5 G/dL Normal 6.0-8.3 [facility] Comment on above: Performed By: #### F E, A1C, ANEU, FT3, FT4, CMP, GFR, ADIFF, FERR, TSH, CBC #### [facility] [address] [phone] Urea nitrogen [Mass/Vol] 7.0 mg/dL Normal 7.0-18.0 [facility] Comment on above: Performed By: #### F E, A1C, ANEU, FT3, FT4, CMP, GFR, ADIFF, FERR, TSH, CBC #### [facility] [address] [phone] FEon 08-22-2024 Iron [Mass/Vol] 38 ug/dL Low 50-170 [facility] Comment on above: Performed By: #### F E, A1C, ANEU, FT3, FT4, CMP, GFR, ADIFF, FERR, TSH, CBC #### [facility] [address] [address] Michael 08-22-2024 Ferritin 3.8 CD:[id number] Low 8.0-252.0 [facility] Comment on above: Performed By: #### F E, A1C, ANEU, FT3, FT4, CMP, GFR, ADIFF, FERR, TSH, CBC #### [facility] [address] [address] FT3on 08-22-2024 Free T3 [Mass/Vol] 2.66 pg/mL Normal 2.18-3.98 [facility] Comment on above: Performed By: #### F E, A1C, ANEU, FT3, FT4, CMP, GFR, ADIFF, FERR, TSH, CBC #### [facility] [address] [address] FT4on 08-22-2024 Free T4 [Mass/Vol] 0.99 ng/dL Normal 0.76-1.46 [facility] Comment on above: Performed By: #### F E, A1C, ANEU, FT3, FT4, CMP, GFR, ADIFF, FERR, TSH, CBC #### [facility] [address] [address] TSHon 08-22-2024 TSH 0.583 mIU/mL Normal 0.358-3.740 [facility] Comment on above: Performed By: #### F E, A1C, ANEU, FT3, FT4, CMP, GFR, ADIFF, FERR, TSH, CBC #### [facility] [address] [address] ALLIED HEALTHon 08-11-2024 ALLIED HEALTH HNO ID: [id number] Author: TIFFANY GRIMES RT(R) Service: Radiology Author [...] PATIENT PRESENTS WITH AN IMPLANTABLE OR ATTACHED ENVIRONMENTAL MAINTENANCE WORKER: No ALLERGIES: Reviewed and unchanged CONTRAST ALLERGY: [...] August 11, 2024 TIME: 3:37 AM Normal [facility] CBC W Auto Differential pane l (Bld)on 08-11-2024 Basophils (Bld) [#/Vol] 0.03 10*3/uL Normal <0.11 [facility] Comment on above: Order Comment: Speci men Type: BLOOD SPECIMEN Ordering Facility: [facility] Address: [address] [place] [address] Performed By: #### 5 7021-8 #### [facility] CLIA [id number] [address] [place] [address] [place] Basophils/100 WBC (Bld) 0.5 % Normal [facility] Comment on above: Order Comment: Speci men Type: BLOOD SPECIMEN Ordering Facility: [facility] Address: [address] [place] [address] Performed By: #### 5 7021-8 #### [facility] CLIA [id number] [address] [place] [address] [place] Differential cell count method Nom (Bld) Auto Normal [facility] Comment on above: Order Comment: Speci men Type: BLOOD SPECIMEN Ordering Facility: [facility] Address: [address] [place] [address] Performed By: #### 5 7021-8 #### [facility] CLIA [id number] [address] [place] [address] [place] Eosinophils (Bld) [#/Vol] 0.14 10*3/uL Normal <0.46 [facility] Comment on above: Order Comment: Speci men Type: BLOOD SPECIMEN Ordering Facility: [facility] Address: [address] [place] [address] Performed By: #### 5 7021-8 #### [facility] CLIA [id number] [address] [place] [address] [place] Eosinophils/100 WBC (Bld) 2.2 % Normal [facility] Comment on above: Order Comment: Speci men Type: BLOOD SPECIMEN Ordering Facility: [facility] Address: [address] [place] [address] Performed By: #### 5 7021-8 #### [facility] CLIA [id number] [address] [place] [address] [place] Erythrocyte distribution width (RBC) [Ratio] 15.6 % High 11.5-15.0 [facility] Comment on above: Order Comment: Speci men Type: BLOOD SPECIMEN Ordering Facility: [facility] Address: [address] [place] [address] Performed By: #### 5 7021-8 #### [facility] CLIA [id number] [address] [place] [address] [place] Hematocrit (Bld) [Volume fraction] 32.8 % Low 36.0-46.0 [facility] Comment on above: Order Comment: Speci men Type: BLOOD SPECIMEN Ordering Facility: [facility] Address: [address] [place] [address] Performed By: #### 5 7021-8 #### [facility] CLIA [id number] [address] [place] [address] [place] Hemoglobin (Bld) [Mass/Vol] 10.3 g/dL Low 11.5-15.5 [facility] Comment on above: Order Comment: Speci men Type: BLOOD SPECIMEN Ordering Facility: [facility] Address: [address] [place] [address] Performed By: #### 5 7021-8 #### [facility] CLIA [id number] [address] [place] [address] [place] Immature granulocytes (Bld) [#/Vol] 10*3/uL Normal <0.10 [facility] Comment on above: Order Comment: Speci men Type: BLOOD SPECIMEN Ordering Facility: [facility] Address: [address] [place] [address] Performed By: #### 5 7021-8 #### [facility] CLIA [id number] [address] [place] [address] [place] Immature granulocytes/100 WBC (Bld) 0.3 % Normal [facility] Comment on above: Order Comment: Speci men Type: BLOOD SPECIMEN Ordering Facility: [facility] Address: [address] [place] [address] Performed By: #### 5 7021-8 #### [facility] CLIA [id number] [address] [place] [address] [place] Lymphocytes (Bld) [#/Vol] 2.36 10*3/uL Normal 1.00-4.00 [facility] Comment on above: Order Comment: Speci men Type: BLOOD SPECIMEN Ordering Facility: [facility] Address: [address] [place] [address] Performed By: #### 5 7021-8 #### [facility] CLIA [id number] [address] [place] [address] [place] Lymphocytes/100 WBC (Bld) 36.6 % Normal [facility] Comment on above: Order Comment: Speci men Type: BLOOD SPECIMEN Ordering Facility: [facility] Address: [address] [place] [address] Performed By: #### 5 7021-8 #### [facility] CLIA [id number] [address] [place] [address] [place] MCH (RBC) [Entitic mass] 25.6 pg Low 26.0-34.0 [facility] Comment on above: Order Comment: Speci men Type: BLOOD SPECIMEN Ordering Facility: [facility] Address: [address] [place] [address] Performed By: #### 5 7021-8 #### [facility] CLIA [id number] [address] [place] [address] [place] MCHC (RBC) [Mass/Vol] 31.4 g/dL Normal 30.5-36.0 [facility] Comment on above: Order Comment: Speci men Type: BLOOD SPECIMEN Ordering Facility: [facility] Address: [address] [place] [address] Performed By: #### 5 7021-8 #### [facility] CLIA [id number] [address] [place] [address] [place] MCV (RBC) [Entitic vol] 81.4 fL Normal 80.0-100.0 [facility] Comment on above: Order Comment: Speci men Type: BLOOD SPECIMEN Ordering Facility: [facility] Address: [address] [place] [address] Performed By: #### 5 7021-8 #### [facility] CLIA [id number] [address] [place] [address] [place] Monocytes (Bld) [#/Vol] 0.46 10*3/uL Normal <0.87 [facility] Comment on above: Order Comment: Speci men Type: BLOOD SPECIMEN Ordering Facility: [facility] Address: [address] [place] [address] Performed By: #### 5 7021-8 #### [facility] CLIA [id number] [address] [place] [address] [place] Monocytes/100 WBC (Bld) 7.1 % Normal [facility] Comment on above: Order Comment: Speci men Type: BLOOD SPECIMEN Ordering Facility: [facility] Address: [address] [place] [address] Performed By: #### 5 7021-8 #### [facility] CLIA [id number] [address] [place] [address] [place] Neutrophils (Bld) [#/Vol] 3.44 10*3/uL Normal 1.45-7.50 [facility] Comment on above: Order Comment: Speci men Type: BLOOD SPECIMEN Ordering Facility: [facility] Address: [address] [place] [address] Performed By: #### 5 7021-8 #### [facility] CLIA [id number] [address] [place] [address] [place] Neutrophils/100 WBC (Bld) 53.3 % Normal [facility] Comment on above: Order Comment: Speci men Type: BLOOD SPECIMEN Ordering Facility: [facility] Address: [address] [place] [address] Performed By: #### 5 7021-8 #### [facility] CLIA [id number] [address] [place] [address] [place] Nucleated RBC (Bld) [#/Vol] 10*3/uL Normal <0.01 [facility] Comment on above: Order Comment: Speci men Type: BLOOD SPECIMEN Ordering Facility: [facility] Address: [address] [place] [address] Performed By: #### 5 7021-8 #### [facility] CLIA [id number] [address] [place] [address] [place] Nucleated RBC/100 WBC (Bld) [Ratio] 0.0 /100 WBC Normal [facility] Comment on above: Order Comment: Speci men Type: BLOOD SPECIMEN Ordering Facility: [facility] Address: [address] [place] [address] Performed By: #### 5 7021-8 #### [facility] CLIA [id number] [address] [place] [address] [place] Platelet mean volume (Bld) [Entitic vol] 10.8 fL Normal 9.0-12.7 [facility] Comment on above: Order Comment: Speci men Type: BLOOD SPECIMEN Ordering Facility: [facility] Address: [address] [place] [address] Performed By: #### 5 7021-8 #### [facility] CLIA [id number] [address] [place] [address] [place] [facility] [place] Platelets (Bld) [#/Vol] 220 10*3/uL Normal 150-400 [facility] Comment on above: Order Comment: Speci men Type: BLOOD SPECIMEN Ordering Facility: [facility] Address: [address] [place] [address] Performed By: #### 5 7021-8 #### [facility] CLIA [id number] [address] [place] [address] [place] RBC (Bld) [#/Vol] 4.03 10*6/uL Normal 3.90-5.20 [facility] Comment on above: Order Comment: Speci men Type: BLOOD SPECIMEN Ordering Facility: [facility] Address: [address] [place] [address] Performed By: #### 5 7021-8 #### [facility] CLIA [id number] [address] [place] [address] [place] WBC (Bld) [#/Vol] 6.45 10*3/uL Normal 3.70-11.00 [facility] Comment on above: Order Comment: Speci men Type: BLOOD SPECIMEN Ordering Facility: [facility] Address: [address] [place] [address] Performed By: #### 5 7021-8 #### [facility] CLIA [id number] [address] [place] [address] [address] ABD/PEL W IVCONon 025 CT ABD/PEL W IVCON * * *Final Report* * * DATE OF EXAM: Aug 11 2024 3:50AM [facility] 0530 - CT ABD/PEL W IVCON [...] pulmonary embolism. 2. No acute abdominal abnormality Senior Health Educator: PSCRuth Ann Transcribe Date/Time: Aug 11 2024 3:59A Dictated by : MARCELO LAI MD This examination was interpreted and the report reviewed and electronically signed by: MARCELO LAI MD on Aug 11 2024 4:12AM EST [id number] [facility] CTA CHEST (NON GATED) W IVCO N PEon 08-11-2024 CTA CHEST (NON GATED) W IVCON PE * * *Final Report* * * DATE OF EXAM: Aug 11 2024 3:50AM [facility] 0564 - CTA CHEST (NON GATED) [...] pulmonary embolism. 2. No acute abdominal abnormality Senior Health Educator: RADHA Transcribe Date/Time: Aug 11 2024 3:59A Dictated by : MARCELO LAI MD This examination was interpreted and the report reviewed and electronically signed by: MARCELO LAI MD on Aug 11 2024 4:12AM EST [id number] Normal [facility] Comprehensive metabolic 2000 panelon 08-11-2024 Albumin [Mass/Vol] 3.6 g/dL Normal 3.2-5.0 [facility] Comment on above: Order Comment: Specalesia rojo Type: BLOOD SPECIMEN Ordering Facility: [facility] Address: [address] [place] [address] Performed By: #### 2 4323-8, 3040-3, HSTROP #### [facility] CLIA [id number] [address] [place], [place] [id number] [place] ALP [Catalytic activity/Vol] 83 U/L Normal 45-117 [facility] Comment on above: Order Comment: Jessica rojo Type: BLOOD SPECIMEN Ordering Facility: [facility] Address: [address] [place] [address] Performed By: #### 2 4323-8, 3040-3, HSTROP #### [facility] CLIA [id number] [address] [place], [place] [id number] [place] ALT [Catalytic activity/Vol] 21 U/L Normal 13-61 [facility] Comment on above: Order Comment: Yuriyi darrel Type: BLOOD SPECIMEN Ordering Facility: [facility] Address: [address] [place] [address] Result Comment: Resu lts may be falsely depressed after the administration of Sulfasalazine and/or Sulfapyridine. Performed By: #### 2 4323-8, 3040-3, HSTROP #### [facility] CLIA [id number] [address] [place], [place] [id number] [place] Anion gap [Moles/Vol] 5 mmol/L Normal 5-16 [facility] Comment on above: Order Comment: Speci men Type: BLOOD SPECIMEN Ordering Facility: [facility] Address: [address] [place] [address] Performed By: #### 2 4323-8, 3040-3, HSTROP #### [facility] CLIA [id number] [address] [place] [address] [place] AST [Catalytic activity/Vol] 19 U/L Normal 8-34 [facility] Comment on above: Order Comment: Speci men Type: BLOOD SPECIMEN Ordering Facility: [facility] Address: [address] [place] [address] Result Comment: Resu lts may be falsely depressed after the administration of Sulfasalazine and/or Sulfapyridine. Performed By: #### 2 4323-8, 0-3, HSTROP #### [facility] CLIA [id number] [address] [place] [address] [place] Bilirubin [Mass/Vol] 0.2 mg/dL Normal 0.2-1.0 [facility] Comment on above: Order Comment: Speci men Type: BLOOD SPECIMEN Ordering Facility: [facility] Address: [address] [place] [address] Performed By: #### 2 4323-8, 3040-3, HSTROP #### [facility] CLIA [id number] [address] [place] [address] [place] Calcium [Mass/Vol] 9.4 mg/dL Normal 8.5-10.5 [facility] Comment on above: Order Comment: Speci men Type: BLOOD SPECIMEN Ordering Facility: [facility] Address: [address] [place] [address] Performed By: #### 2 4323-8, 3040-3, HSTROP #### [facility] CLIA [id number] [address] [place], [place] [id number] [place] Chloride [Moles/Vol] 106 mmol/L Normal 98-107 [facility] Comment on above: Order Comment: Speci men Type: BLOOD SPECIMEN Ordering Facility: [facility] Address: [address] [place] [address] Performed By: #### 2 4323-8, 3040-3, HSTROP #### [facility] CLIA [id number] [address] [place] [address] [place] CO2 [Moles/Vol] 25 mmol/L Normal 21-32 [facility] Comment on above: Order Comment: Speci men Type: BLOOD SPECIMEN Ordering Facility: [facility] Address: [address] [place] [address] Performed By: #### 2 4323-8, 3040-3, HSTROP #### [facility] CLIA [id number] [address] [place] [address] [facility] Creatinine [Mass/Vol] 0.63 mg/dL Normal 0.51-0.95 [facility] Comment on above: Order Comment: Speci men Type: BLOOD SPECIMEN Ordering Facility: [facility] Address: [address] [place] [address] Result Comment: Temo ents receiving either N-Acetylcysteine (NAC) or Metamizole prior to venipuncture, may have falsely depressed results. Performed By: #### 2 4323-8, 3040-3, HSTROP #### [facility] CLIA [id number] [address] [place] [address] [facility] Creatinine and Glomerular filtration rate.predicted panel (S/P/Bld) 123 mL/min/1.73m??? Normal >=60 [facility] Comment on above: Order Comment: Speci men Type: BLOOD SPECIMEN Ordering Facility: [facility] Address: [address] [place] [address] Result Comment: Sarah mated Glomerular Filtration Rate [...] By: #### 2 4323-8, 3040-3, HSTROP #### [facility] CLIA [id number] [address] [place], [place] [id number] [place] Glucose [Mass/Vol] 142 mg/dL High 70-100 [facility] Comment on above: Order Comment: Jessica rojo Type: BLOOD SPECIMEN Ordering Facility: [facility] Address: [address] [place] [address] Result Comment: The [place] Diabetes Association (ADA) provides guidance for cutoff [...] Standards of Medical Care in Diabetes 2016, [place] Diabetes Association. Diabetes Care. 2016.39(Suppl 1). Results may be falsely elevated after the administration of Sulfapyridine. Results may be falsely depressed after the administration of Sulfasalazine. Performed By: #### 2 4323-8, 0-3, HSTROP #### [facility] CLIA [id number] [address] [place], [place] [id number] [place] Potassium [Moles/Vol] 3.7 mmol/L Normal 3.5-5.1 [facility] Comment on above: Order Comment: Jessica rojo Type: BLOOD SPECIMEN Ordering Facility: [facility] Address: [address] [place] [address] Performed By: #### 2 4323-8, 3040-3, HSTROP #### [facility] CLIA [id number] [address] [place], [place] [id number] [place] Protein [Mass/Vol] 7.2 g/dL Normal 6.0-8.5 [facility] Comment on above: Order Comment: Speci men Type: BLOOD SPECIMEN Ordering Facility: [facility] Address: [facility] [place] [id number] Performed By: #### 2 4323-8, 3040-3, HSTROP #### [facility] CLIA [id number] [address] [place], [place] [id number] [place] Sodium [Moles/Vol] 136 mmol/L Normal 136-145 [facility] Comment on above: Order Comment: Speci men Type: BLOOD SPECIMEN Ordering Facility: [facility] Address: [address] [place] [address] Performed By: #### 2 4323-8, 3040-3, HSTROP #### [facility] CLIA [id number] [address] [place], [place] [id number] [place] Urea nitrogen [Mass/Vol] 10 mg/dL Normal 7-26 [facility] Comment on above: Order Comment: Speci men Type: BLOOD SPECIMEN Ordering Facility: [facility] Address: [address] [place], [place] [address] Performed By: #### 2 4323-8, 3040-3, HSTROP #### [facility] CLIA [id number] [address] [place], [place] [id number] [place] ECG COMPLETEon 08-11-2024 ECG COMPLETE Ventricular Rate : 7 8 BPM Atrial Rate : 78 BPM P-R Interval : 198 ms QRS Duration : 84 ms Q-T Interval : 374 ms QTC Calculation(Bazett) : 426 ms Calculated P [place] : 47 degrees Calculated R [place] : 63 degrees Calculated T [place] : 47 degrees Normal sinus rhythm Normal ECG When compared with ECG of 05-Feb-2024 04:52, No significant change was found Confirmed by CECIL LANDEROS MD ([id number]) on 08/12/2024 2:10:44 PM NAME : BETSY MESA PID : [id number] : 1995 Gender : Female Race : Other ORD : [id number] Procedure Date : Aug 11 2024 02:58:03 Edit Date : Aug 12 2024 14:10:44 Diagnosis: Normal sinus rhythm Normal ECG When compared with ECG of 05-Feb-2024 04:52, No significant change was found Confirmed by CECIL LANDEROS MD ([id number]) on 08/12/2024 2:10:44 PM Test Reason : STAT Location : 0 : ED EDH02 Overread By : CECIL LANDEROS MD Edited By : CECIL LANDEROS MD Referred By : , Acquired by : [id number], [facility] ED PROV NOTEon 08-11-2024 ED PROV NOTE HNO ID: [id number] Author: RUBEN QUINTANA MD Service: ? Author [...] pancreatitis, pyelone (more content not included)... Normal [facility] Gastrointestinal pathogens p tyra HUNG+probe (Stl)on 08-11-2024 ADENOVIRUS F 40/41 DNA Not detected Normal Not Detecte d [facility] Comment on above: Order Comment: Jessica rojo Type: STOOL SPECIMEN Ordering Facility: [facility] Address: [address] [place] [address] Performed By: #### 7 9381-0 #### [facility] CLIA [id number] [address] [place] [address] [place] ASTROVIRUS RNA Not detected Normal Not Detected [facility] Comment on above: Order Comment: Jessica rojo Type: STOOL SPECIMEN Ordering Facility: [facility] Address: [address] [place] [address] Performed By: #### 7 9381-0 #### [facility] CLIA [id number] [address] [place] [address] [place] C. cayetanensis DNA HUNG+probe Ql (Unsp spec) Not detected Normal Not Detected [facility] Comment on above: Order Comment: Jessica rojo Type: STOOL SPECIMEN Ordering Facility: [facility] Address: [address] [place] [address] Performed By: #### 7 9381-0 #### [facility] CLIA [id number] [address] [place] [address] [place] Campylobacter sp DNA.diarrheagenic HUNG+probe Ql (Stl) Not detected Normal Not Detected [facility] Comment on above: Order Comment: Speci men Type: STOOL SPECIMEN Ordering Facility: [facility] Address: [address] [place] [address] Performed By: #### 7 9381-0 #### [facility] CLIA [id number] [address] [place] [address] [facility] Cryptosporidium sp DNA HUNG+probe Ql (Unsp spec) Not detected Normal Not Detected [facility] Comment on above: Order Comment: Speci men Type: STOOL SPECIMEN Ordering Facility: [facility] Address: [address] [place] [address] Performed By: #### 7 9381-0 #### [facility] CLIA [id number] [address] [place] [address] [place] E. coli O157:H7 DNA HUNG+probe Ql (Unsp spec) Not applicable Normal Not detected [facility] Comment on above: Order Comment: Speci men Type: STOOL SPECIMEN Ordering Facility: [facility] Address: [address] [place] [address] Performed By: #### 7 9381-0 #### [facility] CLIA [id number] [address] [place] [address] [facility] [place] E. coli stx1+stx2 genes HUNG+probe Ql (Stl) Not detected Normal Not Detected [facility] Comment on above: Order Comment: Speci men Type: STOOL SPECIMEN Ordering Facility: [facility] Address: [address] [place] [address] Performed By: #### 7 9381-0 #### [facility] CLIA [id number] [address] [place] [address] [place] E. histolytica DNA HUNG+probe Ql (Unsp spec) Not detected Normal Not Detected [facility] Comment on above: Order Comment: Speci men Type: STOOL SPECIMEN Ordering Facility: [facility] Address: [address] [place] [address] Performed By: #### 7 9381-0 #### [facility] CLIA [id number] [address] [place] [address] [facility] [place] ENTEROAGGREGATIVE E. COLI (EAEC) DNA Not detected Normal Not Detected [facility] Comment on above: Order Comment: Speci men Type: STOOL SPECIMEN Ordering Facility: [facility] Address: [address] [place] [address] Performed By: #### 7 9381-0 #### [facility] CLIA [id number] [address] [place] [address] [facility] [place] ENTEROPATHOGENIC E. COLI (EPEC) DNA Not detected Normal Not detected [facility] Comment on above: Order Comment: Speci men Type: STOOL SPECIMEN Ordering Facility: [facility] Address: [address] [place] [address] Performed By: #### 7 9381-0 #### [facility] [place] [id number] [address] [place] [address] [place] ENTEROTOXIGENIC E. COLI (ETEC) DNA Not detected Normal Not Detected [facility] Comment on above: Order Comment: Speci men Type: STOOL SPECIMEN Ordering Facility: [facility] Address: [address] [place] [address] Performed By: #### 7 9381-0 #### [facility] IA [id number] [address] [place] [address] [place] G. lamblia DNA HUNG+probe Ql (Unsp spec) Not detected Normal Not Detected [facility] Comment on above: Order Comment: Speci men Type: STOOL SPECIMEN Ordering Facility: [facility] Address: [address] [place] [address] Performed By: #### 7 9381-0 #### [facility] CLIA [id number] [address] [place] [address] [place] NOROVIRUS GI/GII RNA Not detected Normal Not Detected [facility] Comment on above: Order Comment: Speci men Type: STOOL SPECIMEN Ordering Facility: [facility] Address: [address] [place] [address] Performed By: #### 7 9381-0 #### [facility] CLIA [id number] [address] [place] [address] [place] PLESIOMONAS SHIGELLOIDES DNA Not detected Normal Not Detected [facility] Comment on above: Order Comment: Speci men Type: STOOL SPECIMEN Ordering Facility: [facility] Address: [address] [place] [address] Performed By: #### 7 9381-0 #### [facility] CLIA [id number] [address] [place] [address] [place] ROTAVIRUS A RNA Not detected Normal Not Detected [facility] Comment on above: Order Comment: Speci men Type: STOOL SPECIMEN Ordering Facility: [facility] Address: [address] [place] [address] Performed By: #### 7 9381-0 #### [facility] IA [id number] [address] [place] [address] [facility] [place] Salmonella sp DNA HUNG+probe Ql (Unsp spec) Not detected Normal Not Detected [facility] Comment on above: Order Comment: Speci men Type: STOOL SPECIMEN Ordering Facility: [facility] Address: [address] [place] [address] Performed By: #### 7 9381-0 #### [facility] IA [id number] [address] [place] [address] [place] SAPOVIRUS (GENOGROUPS I, II, IV, V) RNA Not detected Normal Not Detected [facility] Comment on above: Order Comment: Speci men Type: STOOL SPECIMEN Ordering Facility: [facility] Address: [address] [place] [address] Performed By: #### 7 9381-0 #### [facility] CLIA [id number] [address] [place] [address] [place] Shigella species+EIEC invasion plasmid antigen H ipaH gene HUNG+probe Ql (Stl) Not detected Normal Not Detected [facility] Comment on above: Order Comment: Speci men Type: STOOL SPECIMEN Ordering Facility: [facility] Address: [address] [place] [address] Performed By: #### 7 9381-0 #### [facility] CLIA [id number] [address] [place] [address] V. cholerae DNA HUNG+probe Ql (Unsp spec) Not detected Normal Not Detected [facility] Comment on above: Order Comment: Speci men Type: STOOL SPECIMEN Ordering Facility: [facility] Address: [address] [place] [address] Performed By: #### 7 9381-0 #### [facility] CLIA [id number] [address] [place] [address] Vibrio sp DNA HUNG+probe Nom (Unsp spec) Not detected Normal Not Detected [facility] Comment on above: Order Comment: Speci men Type: STOOL SPECIMEN Ordering Facility: [facility] Address: [address] [place] [address] Performed By: #### 7 9381-0 #### [facility] CLIA [id number] [address] [place] [address] Yersinia sp DNA HUNG+probe Nom (Unsp spec) Not detected Normal Not Detected [facility] Comment on above: Order Comment: Speci men Type: STOOL SPECIMEN Ordering Facility: [facility] Address: [address] [place] [address] Performed By: #### 7 9381-0 #### [facility] CLIA [id number] [address] [place] [address] [place] HCG Preg Ur Qlon 08-11-2024 HCG ( test) Ql (U) Negative Normal Negative [facility] Comment on above: Order Comment: Speci men Type: URINE SPECIMEN Ordering Facility: [facility] Address: [address] [place] [address] Result Comment: This test is intended to aid in the early detection of . Very dilute urine samples, as indicated by a low specific gravity, may not contain signs sales representative levels of hCG. This test [...] . Performed By: #### 2 106-3 #### [facility] CLIA [id number] [address] [place] [address] [place] HIGH SENSITIVITY TROPONIN Io n 08-11-2024 Tropinin I.cardiac panel High sensitivity method <2.5 Normal 0.0-34.0 [facility] Comment on above: Order Comment: Speci men Type: BLOOD SPECIMEN Ordering Facility: [facility] Address: [address] [place] [address] Performed By: #### 2 4323-8, 3040-3, HSTROP #### [facility] CLIA [id number] [address] [place] [address] [place] Lipase SerPl-cCncon 08-11-19 25 Lipase [Catalytic activity/Vol] 45 U/L Normal 12-60 [facility] Comment on above: Order Comment: Speci men Type: BLOOD SPECIMEN Ordering Facility: [facility] Address: [address] [place] [address] Performed By: #### 2 4323-8, 3040-3, HSTROP #### [facility] CLIA [id number] [address] [place] [address] [place] Urinalysis complete panel (U )on 08-11-2024 Bacteria LM.HPF (Urine sed) [#/Area] None Seen Normal None Seen [facility] Comment on above: Order Comment: Speci men Type: URINE SPECIMEN Ordering Facility: [facility] Address: [address] [place] [address] Performed By: #### 2 4356-8 #### [facility] CLIA [id number] [address] [place] [address] [place] Bilirubin Ql (U) Negative Normal Negative [facility] Comment on above: Order Comment: Speci men Type: URINE SPECIMEN Ordering Facility: [facility] Address: [address] [place] [address] Performed By: #### 2 4356-8 #### [facility] CLIA [id number] [address] [place] [address] [place] CALCIUM OXALATE CRYSTALS (UA) Few Abnormal None Seen [facility] Comment on above: Order Comment: Speci men Type: URINE SPECIMEN Ordering Facility: [facility] Address: [address] [place] [address] Performed By: #### 2 4356-8 #### [facility] CLIA [id number] [address] [place] [address] [place] Clarity (Unsp spec) Clear Normal Clear [facility] Comment on above: Order Comment: Speci men Type: URINE SPECIMEN Ordering Facility: [facility] Address: [address] [place] [address] Performed By: #### 2 4356-8 #### [facility] CLIA [id number] [address] [place] [address] [place] Color (U) Yellow Normal Yellow [facility] Comment on above: Order Comment: Speci men Type: URINE SPECIMEN Ordering Facility: [facility] Address: [address] [place] [address] Performed By: #### 2 4356-8 #### [facility] CLIA [id number] [address] [place] [address] [place] Epithelial cells LM.HPF (Urine sed) [#/Area] Few Normal [facility] Comment on above: Order Comment: Speci men Type: URINE SPECIMEN Ordering Facility: [facility] Address: [address] [place] [address] Performed By: #### 2 4356-8 #### [facility] CLIA [id number] [address] [place] [address] [place] Glucose Test strip (U) [Mass/Vol] Negative Normal Negative [facility] Comment on above: Order Comment: Speci men Type: URINE SPECIMEN Ordering Facility: [facility] Address: [address] [place] [address] Performed By: #### 2 4356-8 #### [facility] CLIA [id number] [address] [place] [address] [place] Hemoglobin Ql (U) 3+ Abnormal Negative [facility] Comment on above: Order Comment: Speci men Type: URINE SPECIMEN Ordering Facility: [facility] Address: [address] [place] [address] Performed By: #### 2 4356-8 #### [facility] CLIA [id number] [address] [place] [address] [place] Ketones Ql (U) Negative Normal Negative [facility] Comment on above: Order Comment: Speci men Type: URINE SPECIMEN Ordering Facility: [facility] Address: [address] [place] [address] Performed By: #### 2 4356-8 #### [facility] CLIA [id number] [address] [place] [address] [facility] Leukocyte esterase Test strip Ql (U) Trace Abnormal Negative [facility] Comment on above: Order Comment: Speci men Type: URINE SPECIMEN Ordering Facility: [facility] Address: [address] [place] [address] Performed By: #### 2 4356-8 #### [facility] CLIA [id number] [address] [place] [address] [place] Nitrite Ql (U) Negative Normal Negative [facility] Comment on above: Order Comment: Speci men Type: URINE SPECIMEN Ordering Facility: [facility] Address: [address] [place] [address] Performed By: #### 2 4356-8 #### [facility] CLIA [id number] [address] [place] [address] [place] pH (U) 6.0 [pH] Normal 5.0-8.0 [facility] Comment on above: Order Comment: Speci men Type: URINE SPECIMEN Ordering Facility: [facility] Address: [address] [place] [address] Performed By: #### 2 4356-8 #### [facility] CLIA [id number] [address] [place] [address] [place] Protein (U) [Mass/Vol] Negative Normal Negative [facility] Comment on above: Order Comment: Speci men Type: URINE SPECIMEN Ordering Facility: [facility] Address: [address] [place] [address] Performed By: #### 2 4356-8 #### [facility] CLIA [id number] [address] [place] [address] [place] RBC LM.HPF (Urine sed) [#/Area] /[HPF] Abnormal 0-3 /HPF [facility] Comment on above: Order Comment: Speci men Type: URINE SPECIMEN Ordering Facility: [facility] Address: [address] [place] [address] Performed By: #### 2 4356-8 #### [facility] CLIA [id number] [address] [place] [address] [place] Specific gravity (U) [Rel density] 1.017 Normal 1.005-1.030 [facility] Comment on above: Order Comment: Speci men Type: URINE SPECIMEN Ordering Facility: [facility] Address: [address] [place] [address] Performed By: #### 2 4356-8 #### [facility] CLIA [id number] [address] [place] [address] [place] Urobilinogen Ql (U) Negative Normal Negative [facility] Comment on above: Order Comment: Speci men Type: URINE SPECIMEN Ordering Facility: [facility] Address: [address] [place] [address] Performed By: #### 2 4356-8 #### [facility] CLIA [id number] [address] [place] [address] [place] WBC LM.HPF (Urine sed) [#/Area] /[HPF] Abnormal 0-5 /HPF [facility] Comment on above: Order Comment: Speci men Type: URINE SPECIMEN Ordering Facility: [facility] Address: [address] [place] [address] Performed By: #### 2 4356-8 #### [facility] CLIA [id number] [address] [place] [address] [place] Emergency Department Summary on 08-08-2024 Emergency Department Summary [facility] Medical Records Department [address] [place] [address] Emergency Department Summary 08/08/24 MR#: [id number] Acct: [id number] Name: EBTSY MESA Rep #: [id number] : 1995 29 From: Nelson Ulloa DO [...] pain and therefore comes in for evaluation [facility] Medical History (Updated 08/08/24 @ 01:[address] Nelson Ulloa DO) Anxiety Paresthesias Cervical radiculopathy Cervicalgia Home [...] obvious physic (more content not included)... Normal [facility] Emergency Department Summary on 07-17-2024 Emergency Department Summary [facility] Medical Records Department [address] [place] [address] Emergency Department Summary 07/17/24 MR#: [id number] Acct: [id number] Name: BETSY MESA Rep #: [id number] : 1995 29 From: Oseas Aviles MD [...] water does help. Denies any other injury. [facility] Medical History Anxiety Paresthesias Cervical [...] area, is roughly 0.5 cm in a bois forte. Patient will be given oral ibuprofen. She [...] DAILY amoxicillin (more content not included)... Normal [facility] Emergency Department Summary on 07-12-2024 Emergency Department Summary [facility] Medical Records Department [address] [place] [address] Emergency Department Summary 07/12/24 MR#: [id number] Acct: [id number] Name: BETSY MESA Rep #: [id number] : 1995 29 From: Abhinav Sofia DO [...] nausea or vomiting. Patient denies any rhinorrhea. [facility] Medical History Anxiety Paresthesias Cervical [...] Provider: Vishal (more content not included)... Normal [facility] M100.677on 07-12-2024 M100.677 Pending Rapid Strep A PCR A POSITIVE A Streptococcus group A Normal [facility] Comment on above: Performed By: #### L 500.2500, L100.0100 #### [facility] Laboratory [address] [place], [place], [address] M100.678on 07-12-2024 M100.678 Pending SARS-CoV-2 (COVID 19) Negative INFLUENZA A Negative INFLUENZA B Negative RSV PCR Negative Normal [facility] Comment on above: Performed By: #### L 500.2500, L100.0100 #### [facility] [address] [place], [place], [id number] Basic Metabolic Profile (BMP )on 06-16-2024 BUN/CRE 16.9 RATIO Normal - [facility] Comment on above: Performed By: #### L 501.9520, L100.0100, L500.2500, L501.5200 #### [facility] [address] [place], [address] CA,Total 9.0 mg/dL Normal 8.5-10.1 [facility] Comment on above: Performed By: #### L 501.9520, L100.0100, L500.2500, L501.5200 #### [facility] [address] [place], [address] Chloride [Moles/Vol] 108 mmol/L High 98-107 [facility] Comment on above: Performed By: #### L 501.9520, L100.0100, L500.2500, L501.5200 #### [facility] [address] [place], [address] CO2 [Moles/Vol] 28.0 mmol/L Normal 21.0-32.0 [facility] Comment on above: Performed By: #### L 501.9520, L100.0100, L500.2500, L501.5200 #### [facility] [address] [place], [address] Creatinine [Mass/Vol] 0.77 mg/dL Normal 0.55-1.02 [facility] Comment on above: Result Comment: The validity of the calculated GFR GFRAA in patients over 70 years has not been determined. Clinical correlation is essential. Performed By: #### L 501.9520, L100.0100, L500.2500, L501.5200 #### [facility] [address] [place], [address] ECRCL 138.63 ml/min Normal [facility] Comment on above: Performed By: #### L 501.9520, L100.0100, L500.2500, L501.5200 #### [facility] [address] [place], [address] EST GFR - AA 114 mL/min Normal >60 [facility] Comment on above: Result Comment: Afri can Japanese GFR Calc Performed By: #### L 501.9520, L100.0100, L500.2500, L501.5200 #### [facility] [address] [place], [address] GAP 3 Low 5-15 [facility] Comment on above: Performed By: #### L 501.9520, L100.0100, L500.2500, L501.5200 #### [facility] [address] [place], [address] GFR/1.73 sq M.predicted among non-blacks MDRD (S/P/Bld) [Vol rate/Area] 94 mL/min/{1.73_m2} Normal >60 [facility] Comment on above: Result Comment: Non- GFR Calc Performed By: #### L 501.9520, L100.0100, L500.2500, L501.5200 #### [facility] [address] [place], [address] Glucose [Mass/Vol] 104 mg/dL Normal 74-106 [facility] Comment on above: Result Comment: Fast ing Glucose result from 100 to 125 mg/dL suggests IMPAIRED HOMEOSTASIS per A.D.A. criteria. Performed By: #### L 501.9520, L100.0100, L500.2500, L501.5200 #### [facility] [address] [place], [address] Potassium [Moles/Vol] 3.8 mmol/L Normal 3.5-5.1 [facility] Comment on above: Performed By: #### L 501.9520, L100.0100, L500.2500, L501.5200 #### [facility] [address] [place], [address] Sodium [Moles/Vol] 139 mmol/L Normal 136-145 [facility] Comment on above: Performed By: #### L 501.9520, L100.0100, L500.2500, L501.5200 #### [facility] [address] [place], [address] Urea nitrogen [Mass/Vol] 13 mg/dL Normal 7-18 [facility] Comment on above: Performed By: #### L 501.9520, L100.0100, L500.2500, L501.5200 #### [facility] [address] [place], [address] CBC W/Diff, Automatedon 05-30 Absolute Lymph 3.38 X10 3/uL Normal 0.83-4.51 [facility] Comment on above: Performed By: #### L 501.9520, L100.0100, L500.2500, L501.5200 #### [facility] [address] [place], [address] Absolute Neut 4.1 X10 3/uL Normal 2.0-7.7 [facility] Comment on above: Performed By: #### L 501.9520, L100.0100, L500.2500, L501.5200 #### [facility] [address] [place], [address] Basophils/100 WBC (Bld) 0.5 % Normal 0-1 [facility] Comment on above: Performed By: #### L 501.9520, L100.0100, L500.2500, L501.5200 #### [facility] [address] [place], [address] Eosinophils/100 WBC (Bld) 2.2 % Normal 0-5 [facility] Comment on above: Performed By: #### L 501.9520, L100.0100, L500.2500, L501.5200 #### [facility] [address] [place], [address] Erythrocyte distribution width (RBC) [Ratio] 14.6 % Normal 11.6-14.6 [facility] Comment on above: Performed By: #### L 501.9520, L100.0100, L500.2500, L501.5200 #### [facility] [address] [place], [address] Hematocrit (Bld) [Volume fraction] 31.0 % Low 37-47 [facility] Comment on above: Performed By: #### L 501.9520, L100.0100, L500.2500, L501.5200 #### [facility] [address] [place], [address] Hemoglobin (Bld) [Mass/Vol] 9.8 g/dL Low 12.0-15.0 [facility] Comment on above: Performed By: #### L 501.9520, L100.0100, L500.2500, L501.5200 #### [facility] [address] [place], [address] IG% 0.100 Normal 0.0-0.9 [facility] Comment on above: Result Comment: IG% - Immature Granulocytes (promyelocytes, myelocytes and metamyelocytes) > 1% indicates that a LEFT SHIFT is Present. Performed By: #### L 501.9520, L100.0100, L500.2500, L501.5200 #### [facility] [address] [place], [address] Lymphocytes/100 WBC (Bld) 41.0 % Normal 19-41 [facility] Comment on above: Performed By: #### L 501.9520, L100.0100, L500.2500, L501.5200 #### [facility] [address] [place], [address] MCH (RBC) [Entitic mass] 26.9 pg Low 27.0-32.0 [facility] Comment on above: Performed By: #### L 501.9520, L100.0100, L500.2500, L501.5200 #### [facility] [address] [place], [address] MCHC (RBC) [Mass/Vol] 31.6 g/dL Low 32-36 [facility] Comment on above: Performed By: #### L 501.9520, L100.0100, L500.2500, L501.5200 #### [facility] [address] [place], [address] MCV (RBC) [Entitic vol] 85.2 fL Normal 81-99 [facility] Comment on above: Performed By: #### L 501.9520, L100.0100, L500.2500, L501.5200 #### [facility] [address] [place], [address] Monocytes/100 WBC (Bld) 6.5 % Normal 0-10 [facility] Comment on above: Performed By: #### L 501.9520, L100.0100, L500.2500, L501.5200 #### [facility] [address] [place], [address] Neutrophils/100 WBC (Bld) 49.7 % Normal 47-70 [facility] Comment on above: Performed By: #### L 501.9520, L100.0100, L500.2500, L501.5200 #### [facility] [address] [place], [address] Nucleated RBC (Bld) [#/Vol] 0 10*3/uL Normal 0-5 [facility] Comment on above: Performed By: #### L 501.9520, L100.0100, L500.2500, L501.5200 #### [facility] [address] [place], [address] Platelet mean volume (Bld) [Entitic vol] 10.4 fL Normal 6.2-12.0 [facility] Comment on above: Performed By: #### L 501.9520, L100.0100, L500.2500, L501.5200 #### [facility] [address] [place], [address] Platelets (Bld) [#/Vol] 257 10*3/uL Normal 150-450 [facility] Comment on above: Performed By: #### L 501.9520, L100.0100, L500.2500, L501.5200 #### [facility] [address] [place], [address] RBC (Bld) [#/Vol] 3.64 10*6/uL Low 4.2-5.4 [facility] Comment on above: Performed By: #### L 501.9520, L100.0100, L500.2500, L501.5200 #### [facility] [address] [place], [address] RDW SD 45.7 fl High 35.1-43.9 [facility] Comment on above: Performed By: #### L 501.9520, L100.0100, L500.2500, L501.5200 #### [facility] [address] [place], [address] WBC (Bld) [#/Vol] 8.3 10*3/uL Normal 4.4-11.0 [facility] Comment on above: Performed By: #### L 501.9520, L100.0100, L500.2500, L501.5200 #### [facility] [address] [place], [address] Emergency Department Summary on 06-16-2024 Emergency Department Summary [facility] Medical Records Department [address] [place] [address] Emergency Department Summary 06/16/24 MR#: [id number] Acct: [id number] Name: BETSY MESA Rep #: [id number] : 1995 29 From: Nelson Ulloa DO [...] thyroid and therefore comes in for evaluation [facility] Medical History Anxiety Paresthesias Cervical [...] to ensure (more content not included)... Normal [facility] Magnesiumon 06-16-2024 Magnesium [Mass/Vol] 2.0 mg/dL Normal 1.6-2.6 [facility] Comment on above: Performed By: #### L 501.9520, L100.0100, L500.2500, L501.5200 #### [facility] [address] [place], [address] Thyroid Stim Hormone (TSH)on 06-16-2024 TSH 0.884 uIU/mL Normal 0.358-3.740 [facility] Comment on above: Performed By: #### L 501.9520, L100.0100, L500.2500, L501.5200 #### [facility] [address] [place], [address] Basic Metabolic Profile (BMP )on 05-18-2024 BUN/CRE 14.9 RATIO Normal 05-18 [facility] Comment on above: Performed By: #### L 100.0100, L500.2500 #### [facility] [address] [place], [address] CA,Total 8.9 mg/dL Normal 8.5-10.1 [facility] Comment on above: Performed By: #### L 100.0100, L500.2500 #### [facility] [address] [place], [address] Chloride [Moles/Vol] 110 mmol/L High 98-107 [facility] Comment on above: Performed By: #### L 100.0100, L500.2500 #### [facility] [address] [place], [address] CO2 [Moles/Vol] 28.0 mmol/L Normal 21.0-32.0 [facility] Comment on above: Performed By: #### L 100.0100, L500.2500 #### [facility] [address] [place], [address] Creatinine [Mass/Vol] 0.74 mg/dL Normal 0.55-1.02 [facility] Comment on above: Result Comment: The validity of the calculated GFR GFRAA in patients over 70 years has not been determined. Clinical correlation is essential. Performed By: #### L 100.0100, L500.2500 #### [facility] [address] [place], [address] ECRCL 142.50 ml/min Normal [facility] Comment on above: Performed By: #### L 100.0100, L500.2500 #### [facility] [address] [place], [address] EST GFR - AA 119 mL/min Normal >60 [facility] Comment on above: Result Comment: Afri can Japanese GFR Calc Performed By: #### L 100.0100, L500.2500 #### [facility] [address] [place], [address] GAP 3 Low 5-15 [facility] Comment on above: Performed By: #### L 100.0100, L500.2500 #### [facility] [address] [place], [address] GFR/1.73 sq M.predicted among non-blacks MDRD (S/P/Bld) [Vol rate/Area] 99 mL/min/{1.73_m2} Normal >60 [facility] Comment on above: Result Comment: Non- GFR Calc Performed By: #### L 100.0100, L500.2500 #### [facility] [address] [place], [address] Glucose [Mass/Vol] 112 mg/dL High 74-106 [facility] Comment on above: Result Comment: Fast ing Glucose result from 100 to 125 mg/dL suggests IMPAIRED HOMEOSTASIS per A.D.A. criteria. Performed By: #### L 100.0100, L500.2500 #### [facility] [address] [place], [address] Potassium [Moles/Vol] 3.8 mmol/L Normal 3.5-5.1 [facility] Comment on above: Performed By: #### L 100.0100, L500.2500 #### [facility] [address] [place], [address] Sodium [Moles/Vol] 141 mmol/L Normal 136-145 [facility] Comment on above: Performed By: #### L 100.0100, L500.2500 #### [facility] [address] [place], [address] Urea nitrogen [Mass/Vol] 11 mg/dL Normal 7-18 [facility] Comment on above: Performed By: #### L 100.0100, L500.2500 #### [facility] [address] [place], [address] Brain/Head without Contrasto n 05-18-2024 Brain/Head without Contrast [facility] Imaging Services [address] [place] [address] Brain/Head without Contrast MR#: [id number] Acct: [id number] Name: BETSY MESA Rep #: [id number] : 1995 F 29 From: Vitaliy Talley PCP: Care Physician,No Primary Status: [facility] Study: Brain/Head without Contrast Date of Exam: 04/30 Exam# [id number] Ordering Dr: Trae Kessler DO [id number] INDICATION: headache EXAMINATION: CT BRAIN - CT [...] at 10:36 EDT , CC: Dr. Trae Kessler, ; No Primary Care Physician Senior Health Educator: Signed Normal [facility] CBC W/Diff, Automatedon 10-2 0-2023 Absolute Lymph 2.02 X10 3/uL Normal 0.83-4.51 [facility] Comment on above: Performed By: #### L 100.0100, L500.2500 #### [facility] [address] [facility] [place], [address] Absolute Neut 3.7 X10 3/uL Normal 2.0-7.7 [facility] Comment on above: Performed By: #### L 100.0100, L500.2500 #### [facility] [address] [place], [address] Basophils/100 WBC (Bld) 0.3 % Normal 0-1 [facility] Comment on above: Performed By: #### L 100.0100, L500.2500 #### [facility] [address] [place], [address] Eosinophils/100 WBC (Bld) 2.7 % Normal 0-5 [facility] Comment on above: Performed By: #### L 100.0100, L500.2500 #### [facility] [address] [place], [address] Erythrocyte distribution width (RBC) [Ratio] 15.5 % High 11.6-14.6 [facility] Comment on above: Performed By: #### L 100.0100, L500.2500 #### [facility] [address] [place], [address] Hematocrit (Bld) [Volume fraction] 29.5 % Low 37-47 [facility] Comment on above: Performed By: #### L 100.0100, L500.2500 #### [facility] [address] [place], [address] Hemoglobin (Bld) [Mass/Vol] 9.5 g/dL Low 12.0-15.0 [facility] Comment on above: Performed By: #### L 100.0100, L500.2500 #### [facility] [address] [place], [address] IG% 0.200 Normal 0.0-0.9 [facility] Comment on above: Result Comment: IG% - Immature Granulocytes (promyelocytes, myelocytes and metamyelocytes) > 1% indicates that a LEFT SHIFT is Present. Performed By: #### L 100.0100, L500.2500 #### [facility] [address] [place], [address] Lymphocytes/100 WBC (Bld) 31.6 % Normal 19-41 [facility] Comment on above: Performed By: #### L 100.0100, L500.2500 #### [facility] [address] [place], [address] MCH (RBC) [Entitic mass] 29.0 pg Normal 27.0-32.0 [facility] Comment on above: Performed By: #### L 100.0100, L500.2500 #### [facility] [address] [place], [address] MCHC (RBC) [Mass/Vol] 32.2 g/dL Normal 32-36 [facility] Comment on above: Performed By: #### L 100.0100, L500.2500 #### [facility] [address] [place], [address] MCV (RBC) [Entitic vol] 89.9 fL Normal 81-99 [facility] Comment on above: Performed By: #### L 100.0100, L500.2500 #### [facility] [address] [place], [address] Monocytes/100 WBC (Bld) 7.2 % Normal 0-10 [facility] Comment on above: Performed By: #### L 100.0100, L500.2500 #### [facility] [address] [place], [address] Neutrophils/100 WBC (Bld) 58.0 % Normal 47-70 [facility] Comment on above: Performed By: #### L 100.0100, L500.2500 #### [facility] [address] [place], [address] Nucleated RBC (Bld) [#/Vol] 0 10*3/uL Normal 0-5 [facility] Comment on above: Performed By: #### L 100.0100, L500.2500 #### [facility] [address] [place], [address] Platelet mean volume (Bld) [Entitic vol] 10.1 fL Normal 6.2-12.0 [facility] Comment on above: Performed By: #### L 100.0100, L500.2500 #### [facility] [address] [place], [address] Platelets (Bld) [#/Vol] 260 10*3/uL Normal 150-450 [facility] Comment on above: Performed By: #### L 100.0100, L500.2500 #### [facility] [address] [place], [address] RBC (Bld) [#/Vol] 3.28 10*6/uL Low 4.2-5.4 [facility] Comment on above: Performed By: #### L 100.0100, L500.2500 #### [facility] [address] [place], [address] RDW SD 51.3 fl High 35.1-43.9 [facility] Comment on above: Performed By: #### L 100.0100, L500.2500 #### [facility] [address] [place], [address] WBC (Bld) [#/Vol] 6.4 10*3/uL Normal 4.4-11.0 [facility] Comment on above: Performed By: #### L 100.0100, L500.2500 #### [facility] [address] [place], [address] Emergency Department Summary on 05-18-2024 Emergency Department Summary [facility] Medical Records Department [address] [place] [address] Emergency Department Summary 05/18/24 MR#: [id number] Acct: [id number] Name: BETSY MESA Rep #: [id number] : 1995 29 From: Trae Kessler DO [...] symptoms. Headache is not positional in nature. [facility] Medical History Anxiety Paresthesias Cervical [...] ROM Ext (more content not included)... Normal [facility] Basic Metabolic Profile (BMP )on 05-08-2024 BUN/CRE 17.9 RATIO Normal 05-18 [facility] Comment on above: Performed By: #### L 500.2500, L100.0100 #### [facility] [address] [place], [address] CA,Total 8.6 mg/dL Normal 8.5-10.1 [facility] Comment on above: Performed By: #### L 500.2500, L100.0100 #### [facility] [address] [place], [address] Chloride [Moles/Vol] 106 mmol/L Normal 98-107 [facility] Comment on above: Performed By: #### L 500.2500, L100.0100 #### [facility] [address] [place], [address] CO2 [Moles/Vol] 30.0 mmol/L Normal 21.0-32.0 [facility] Comment on above: Performed By: #### L 500.2500, L100.0100 #### [facility] [address] [place], [address] Creatinine [Mass/Vol] 0.78 mg/dL Normal 0.55-1.02 [facility] Comment on above: Result Comment: The validity of the calculated GFR GFRAA in patients over 70 years has not been determined. Clinical correlation is essential. Performed By: #### L 500.2500, L100.0100 #### [facility] [address] [place], [address] ECRCL 135.58 ml/min Normal [facility] Comment on above: Performed By: #### L 500.2500, L100.0100 #### [facility] [address] [place], [address] EST GFR - AA 112 mL/min Normal >60 [facility] Comment on above: Result Comment: Afri can Japanese GFR Calc Performed By: #### L 500.2500, L100.0100 #### [facility] [address] [place], [address] GAP 2 Low 5-15 [facility] Comment on above: Performed By: #### L 500.2500, L100.0100 #### [facility] [address] [place], [address] GFR/1.73 sq M.predicted among non-blacks MDRD (S/P/Bld) [Vol rate/Area] 92 mL/min/{1.73_m2} Normal >60 [facility] Comment on above: Result Comment: Non- GFR Calc Performed By: #### L 500.2500, L100.0100 #### [facility] [address] [place], [address] Glucose [Mass/Vol] 114 mg/dL High 74-106 [facility] Comment on above: Result Comment: Fast ing Glucose result from 100 to 125 mg/dL suggests IMPAIRED HOMEOSTASIS per A.D.A. criteria. Performed By: #### L 500.2500, L100.0100 #### [facility] [address] [place], [address] Potassium [Moles/Vol] 4.1 mmol/L Normal 3.5-5.1 [facility] Comment on above: Performed By: #### L 500.2500, L100.0100 #### [facility] [address] [place], [address] Sodium [Moles/Vol] 138 mmol/L Normal 136-145 [facility] Comment on above: Performed By: #### L 500.2500, L100.0100 #### [facility] [address] [place], [address] Urea nitrogen [Mass/Vol] 14 mg/dL Normal 7-18 [facility] Comment on above: Performed By: #### L 500.2500, L100.0100 #### [facility] [address] [place], [address] CBC W/Diff, Automatedon 10- 0 Absolute Lymph 3.19 X10 3/uL Normal 0.83-4.51 [facility] Comment on above: Performed By: #### L 500.2500, L100.0100 #### [facility] [address] [place] [place], [address] Absolute Neut 3.4 X10 3/uL Normal 2.0-7.7 [facility] Comment on above: Performed By: #### L 500.2500, L100.0100 #### [facility] [address] [place], [address] Basophils/100 WBC (Bld) 0.4 % Normal 0-1 [facility] Comment on above: Performed By: #### L 500.2500, L100.0100 #### [facility] [address] [place], [address] Eosinophils/100 WBC (Bld) 3.4 % Normal 0-5 [facility] Comment on above: Performed By: #### L 500.2500, L100.0100 #### [facility] [address] [place], [address] Erythrocyte distribution width (RBC) [Ratio] 16.6 % High 11.6-14.6 [facility] Comment on above: Performed By: #### L 500.2500, L100.0100 #### [facility] [address] [place], [address] Hematocrit (Bld) [Volume fraction] 26.7 % Low 37-47 [facility] Comment on above: Performed By: #### L 500.2500, L100.0100 #### [facility] [address] [place], [address] Hemoglobin (Bld) [Mass/Vol] 8.6 g/dL Low 12.0-15.0 [facility] Comment on above: Performed By: #### L 500.2500, L100.0100 #### [facility] [address] [place], [address] IG% 0.300 Normal 0.0-0.9 [facility] Comment on above: Result Comment: IG% - Immature Granulocytes (promyelocytes, myelocytes and metamyelocytes) > 1% indicates that a LEFT SHIFT is Present. Performed By: #### L 500.2500, L100.0100 #### [facility] [address] [place], [address] Lymphocytes/100 WBC (Bld) 43.4 % High 19-41 [facility] Comment on above: Performed By: #### L 500.2500, L100.0100 #### [facility] [address] [place], [address] MCH (RBC) [Entitic mass] 28.6 pg Normal 27.0-32.0 [facility] Comment on above: Performed By: #### L 500.2500, L100.0100 #### [facility] [address] [place], [address] MCHC (RBC) [Mass/Vol] 32.2 g/dL Normal 32-36 [facility] Comment on above: Performed By: #### L 500.2500, L100.0100 #### [facility] [address] [place], [address] MCV (RBC) [Entitic vol] 88.7 fL Normal 81-99 [facility] Comment on above: Performed By: #### L 500.2500, L100.0100 #### [facility] [address] [place], [address] Monocytes/100 WBC (Bld) 6.1 % Normal 0-10 [facility] Comment on above: Performed By: #### L 500.2500, L100.0100 #### [facility] [address] [place], [address] Neutrophils/100 WBC (Bld) 46.4 % Low 47-70 [facility] Comment on above: Performed By: #### L 500.2500, L100.0100 #### [facility] [address] [place], [address] Nucleated RBC (Bld) [#/Vol] 0 10*3/uL Normal 0-5 [facility] Comment on above: Performed By: #### L 500.2500, L100.0100 #### [facility] [address] [place], [address] Platelet mean volume (Bld) [Entitic vol] 11.5 fL Normal 6.2-12.0 [facility] Comment on above: Performed By: #### L 500.2500, L100.0100 #### [facility] [address] [place], [address] Platelets (Bld) [#/Vol] 142 10*3/uL Low 150-450 [facility] Comment on above: Performed By: #### L 500.2500, L100.0100 #### [facility] [address] [place], [address] RBC (Bld) [#/Vol] 3.01 10*6/uL Low 4.2-5.4 [facility] Comment on above: Performed By: #### L 500.2500, L100.0100 #### [facility] [address] [place], [address] RDW SD 53.8 fl High 35.1-43.9 [facility] Comment on above: Performed By: #### L 500.2500, L100.0100 #### [facility] [address] [place], [address] WBC (Bld) [#/Vol] 7.4 10*3/uL Normal 4.4-11.0 [facility] Comment on above: Performed By: #### L 500.2500, L100.0100 #### [facility] [address] [place], [address] CTA Chest W/WO Contraston CTA Chest W/WO Contrast [facility] Imaging Services [address] [place] [address] CTA Chest W/WO Contrast MR#: [id number] Acct: [id number] Name: BETSY MESA Rep #: [id number] : 1995 F 29 From: Ning Talley PCP: ARLINE CORADO Status: REG ER Study: CTA Chest W/WO Contrast Date of Exam: 05/08/24 Exam# [id number] Ordering Dr: Nelson Ulloa DO [id number] STUDY: CTA CHEST REASON FOR EXAM: Female, [...] Signed: Ning Hess MD at 5:30 EDT , CC: ARLINE Ulloa DO Senior Health Educator: Signed Normal [facility] Chest PA and Lateralon 05-08 Chest PA and Lateral [facility] Services [address] [place], [place] [address] Chest PA and Lateral MR#: [id number] Acct: [id number] Name: BETSY MESA Rep #: [id number] : 1995 F 29 From: Ning Talley PCP: ARLINE CORADO Status: REG ER Study: Chest PA and Lateral Date of Exam: 05/08/24 Exam# [id number] Ordering Dr: Nelson Ulloa DO [id number] INDICATION: dyspnea EXAMINATION/TECHNIQUE: X-RAY - XR Chest [...] Signed: Ning Hess MD at 4:43 EDT , CC: ARLINE Ulloa DO Senior Health Educator: Signed Normal [facility] D-Dimer Quantitative (DVT/PE )on 05-08-2024 D-DIMER QUANT 0.91 FEU/ug/m Invalid Interpretation Code 0.27-0.49 [facility] Comment on above: Result Comment: D-Di sagar ELEVATED (>0.49): Additional studies and clinical assessments are indicated to conclude diagnosis of: Deep Vein Thrombosis (DVT) or Pulmonary Embolism (PE) CRITICAL VALUE CALLED TO MMARTIN2 05/08/24 0438 Leelee Navas. RESULTS READ BACK BY SAME. Performed By: #### L 500.2500, L300.8000, L501.5200 #### [facility] [address] [place], [address] Emergency Department Summary on 05-08-2024 Emergency Department Summary [facility] Medical Records Department [address] [place] [address] Emergency Department Summary 05/08/24 MR#: [id number] Acct: [id number] Name: BETSY MESA Rep #: [id number] : 1995 29 From: Nelson Ulloa DO [...] of breath sensation she presents for evaluation [facility] Medical History Anxiety Paresthesias Cervical [...] Skin no (more content not included)... Normal [facility] Magnesiumon 05-08-2024 Magnesium [Mass/Vol] 2.1 mg/dL Normal 1.6-2.6 [facility] Comment on above: Performed By: #### L 500.2500, L100.0100 #### [facility] [address] [address], [address] B-HCG SerPl-aCncon 4 HCG.beta subunit Qn 2327.0 m[IU]/mL High <5.0 [facility] Comment on above: Order Comment: Speci men Type: TISSUE SPECIMEN Ordering Facility: [facility] Address: [address] [place] [address] Result Comment: JALYN TITATIVE HCG NORMAL RANGES Weeks of Gestation (Weeks Since LMP) 3 Weeks (5.8-71.2 mIU/mL) 4 Weeks (9.5-750 mIU/mL) 5 Weeks (217-7138 mIU/mL) 6 Weeks (158-68786 mIU/mL) 7 Weeks (3697-645075 mIU/mL) 8 Weeks (12326-862510 mIU/mL) 9 Weeks (38913-482018 mIU/mL) 10 Weeks (59616-673066 mIU/mL) 12 Weeks (97752-176336 mIU/mL) Referenced to 4th IS of NIBSC Performed By: #### S #### [facility] CLIA [id number] [address] [place] [address] [place] CNOVon 05-06-2024 CNOV Office Visit (OBGYWM ) BONITA,BETSY Waters ([id number]) 1995 F Date Time Provider Department 05/06/24 [...] Last night started bleeding and went to [facility] ED but long wait so went to [facility] and they offered patient to go to [facility] or f/u in office. Patient was d/jose home to f/u today. Having waves of cramping nad passing clots, bleeding heavier than a period. Soaked through pads last night then it slowed and passed more clots. 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 As applicable, any other physician, advance practice provider, medical student, or other health professional student that will be observing or involved in the sensitive examination for educational or training purposes was discussed with the Patient or Authorized Instrumentation And Controls Technician. The Patient or Authorized Instrumentation And Controls Technician has agreed to proceed with the sensitive examination. (Sensitive examination includes inspection and/or palpation of the breasts, pelvis, prostate and anorectal regions). EXAM: Wt 212 lb (96.2kg) LMP 02/18/2024 GENERAL: in pain, female in mild distress ABDOMEN: soft, non-tender, and no masses PELVIC: external genitalia normal, normal Bartholin's glands, urethra, [place]'s glands, no vulvar lesions, no cervical lesions, [...] EMERGENT p (more content not included)... Normal [facility] SURGICAL PATHOLOGYon 024 CASE REPORT Normal [facility] Comment on above: Order Comment: Speci men Type: TISSUE SPECIMEN Ordering Facility: [facility] Address: [address] [place] [address] Result Comment: Surg ical Pathology Report Case: [id number] Authorizing Provider: Leela Currie MD Collected: 05/06/2024 04:56 PM Ordering Location: OB/Gynecology Received: 05/07/2024 12:08 PM Pathologist: Eli Bowen MD Specimen: Products of Conception Performed By: #### S #### [facility] CLIA [id number] [address] [place] [address] [place] CLINICAL HISTORY incomplete spontaneo us Normal [facility] Comment on above: Order Comment: Speci men Type: TISSUE SPECIMEN Ordering Facility: [facility] Address: [address] [place] [address] Performed By: #### S #### [facility] CLIA [id number] [address] [place] [address] [place] FINAL DIAGNOSIS Normal [facility] Comment on above: Order Comment: Speci men Type: TISSUE SPECIMEN Ordering Facility: [facility] Address: [address] [place] [address] Result Comment: A. Products of conception: - Products of conception, to include immature chorionic villi. - Decidua and gestational endometrium. Performed By: #### S #### [facility] CLIA [id number] [address] [place] [address] [place] FINAL PERFORMING LAB Normal [facility] Comment on above: Order Comment: Speci men Type: TISSUE SPECIMEN Ordering Facility: [facility] Address: [address] [place] [address] Result Comment: Diag nostic interpretation performed at [facility], [address] [place] [address] CLIA# [id number] Laser Systems Engineer: Jeremiah Lemons M.D. Performed By: #### S #### [facility] CLIA [id number] [address] [place] [address] [place] GROSS DESCRIPTION Normal [facility] Comment on above: Order Comment: Speci men Type: TISSUE SPECIMEN Ordering Facility: [facility] Address: [address] [place] [address] Result Comment: A. P roducts of Conception Received in formalin labeled products of conception are multiple irregularly-shaped, purple-steward, soft tissue fragments admixed with blood clot aggregating to 6 x 4.5 x 0.5 cm. There is possible chorionic villi. There are no vesicles or parts. Instrumentation And Controls Technician sections are submitted in cassettes A1-A3. DAIVNA May 07, 2024 3:45 PM Gross examination performed at [facility], [address] [place] [address] CLIA# [id number] Performed By: #### S #### [facility] CLIA [id number] [address] [place] [address] [place] PREGUon 05-05-2024 HCG ( test) Ql (U) Positive Normal [facility] Comment on above: Performed By: #### U A, PREGU, UAMIC #### [facility] [address] [address] test (u) int Detected Invalid Interpretation Code [facility] Comment on above: Performed By: #### U A, PREGU, UAMIC #### [facility] [address] [address] UAon 05-05-2024 Color (U) Straw Normal [facility] Comment on above: Performed By: #### U A, PREGU, UAMIC #### [facility] [address] [address] Glucose (U) [Mass/Vol] Negative Normal Negative AU [facility]AN [facility] Comment on above: Performed By: #### U A, PREGU, UAMIC #### [facility] [address] [address] Ketones Ql (U) Negative Normal Neg-Trace [facility] Comment on above: Performed By: #### U A, PREGU, UAMIC #### [facility] [address] [address] UA Appear Clear Normal [facility] Comment on above: Performed By: #### U A, PREGU, UAMIC #### [facility] [address] [address] UA Blood Large Abnormal Neg-Trace [facility] Comment on above: Performed By: #### U A, PREGU, UAMIC #### [facility] [address] [address] UA Leuk Est Negative Normal Negative [facility] Comment on above: Performed By: #### U A, PREGU, UAMIC #### [facility] [address] [address] UA Nitrite Negative Normal Negative [facility] Comment on above: Performed By: #### U A, PREGU, UAMIC #### [facility] [address] [address] UA pH 5.5 Normal 5.0 - 8.0 [facility] Comment on above: Performed By: #### U A, PREGU, UAMIC #### [facility] [address] [address] UA Protein Negative Normal Negative [facility] Comment on above: Performed By: #### U A, PREGU, UAMIC #### [facility] [address] [address] UA Spec Grav <=1.005 Abnormal [facility] Comment on above: Performed By: #### U A, PREGU, UAMIC #### [facility] [address] [address] UA Specimen Type Clean Catch Normal [facility] Comment on above: Performed By: #### U A, PREGU, UAMIC #### [facility] [address] [address] UA Urobilinogen 0.2 E.U./dL Normal [facility] Comment on above: Performed By: #### U A, PREGU, UAMIC #### [facility] [address] [address] Urobilinogen (U) [Mass/Vol] Negative Normal Neg-Trace [facility] Comment on above: Performed By: #### U A, PREGU, UAMIC #### [facility] [address] [address] UAMICon 05-05-2024 UA Bacteria Negative Normal Negative [facility] Comment on above: Performed By: #### U A, PREGU, UAMIC #### [facility] [address] [address] UA RBC 25-50 Abnormal 0-2 [facility] Comment on above: Performed By: #### U A, PREGU, UAMIC #### [facility] [address] [address] UA Squam Epithelial 0-2 Normal 0-20 [facility] Comment on above: Performed By: #### U A, PREGU, UAMIC #### [facility] [address] [address] UA WBC 0-2 Normal 0-5 [facility] Comment on above: Performed By: #### U A, PREGU, UAMIC #### [facility] [address] [place], [place] [address] CNPCarley 05-02-2024 CNPN Telephone (OBGYWM) BETSY MESA ([id number]) 1995 F Date Time Provider Department 05/02/24 [...] Status:Closed by IRMA LIN on 05/07/24 Normal [facility] B-HCG SerPl-aCncon 4 HCG.beta subunit Qn 4890.0 m[IU]/mL High <5.0 [facility] Comment on above: Order Comment: Speci men Type: TISSUE SPECIMEN Ordering Facility: [facility] Address: [address] [place] [address] Result Comment: JALYN TITATIVE HCG NORMAL RANGES Weeks of Gestation (Weeks Since LMP) 3 Weeks (5.8-71.2 mIU/mL) 4 Weeks (9.5-750 mIU/mL) 5 Weeks (217-7138 mIU/mL) 6 Weeks (158-68599 mIU/mL) 7 Weeks (3697-300879 mIU/mL) 8 Weeks (87932-233120 mIU/mL) 9 Weeks (89366-944212 mIU/mL) 10 Weeks (78443-359120 mIU/mL) 12 Weeks (00228-241788 mIU/mL) Referenced to 4th IS of [facility] Performed By: #### S #### [facility] CLIA [id number] [address] [id number] [place] CNOVon 05-01-2024 CNOV Office Visit (OBGYWM ) BETSY MESA ([id number]) 1995 F Date Time Provider Department 05/01/24 1:30 PM JOSE ARANDA OBGYWM During your visit today, we recorded the following information about you: Blood pressure Weight 108/70 97.1 kg Jose Aranda APRN.CNM 05/01/2024 2:31 PM Signed Betsy Waters Bonita is a 29 year old [...] she started spotting and cramping this morning. 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 Normal [facility] US Pelvison 05-01-2024 Indication viability, spotting Impression [...] Read By: Keshawn Moscoso M.D. MATERNAL MEDICINE [facility] Radiology Study observation (narrative) [facility] B-HCG SerPl-aCncon 4 HCG.beta subunit Qn 5643.0 m[IU]/mL High <5.0 [facility] Comment on above: Order Comment: Speci men Type: TISSUE SPECIMEN Ordering Facility: [facility] Address: [address] [place] [address] Result Comment: JALYN TITATIVE HCG NORMAL RANGES Weeks of Gestation (Weeks Since LMP) 3 Weeks (5.8-71.2 mIU/mL) 4 Weeks (9.5-750 mIU/mL) 5 Weeks (217-7138 mIU/mL) 6 Weeks (158-01268 mIU/mL) 7 Weeks (3697-916815 mIU/mL) 8 Weeks (26521-193348 mIU/mL) 9 Weeks (23189-225549 mIU/mL) 10 Weeks (88963-182005 mIU/mL) 12 Weeks (29368-846049 mIU/mL) Referenced to 4th IS of [facility] Performed By: #### S #### [facility] CLIA [id number] [address] [place] [address] [place] Bacteria Ur Culton 4 Bacteria identified Cx Nom (U) ORGANISM ID: 1 50,000-<100,000 CFU/ml Normal urogenital marilu Normal [facility] Comment on above: Performed By: #### S #### [facility] CLIA [id number] [address] [place] [address] [place] CBC panel Auto (Bld)on 04-28 Erythrocyte distribution width (RBC) [Ratio] 16.9 % High 11.5 - 15.0 % [facility] Hematocrit (Bld) [Volume fraction] 35.1 % Low 36.0 - 46.0 % [facility] Hemoglobin (Bld) [Mass/Vol] 11.8 g/dL 11.5 - 15.5 g/dL [facility] Interpretation and review of laboratory results Abnormal [facility] MCH (RBC) [Entitic mass] 28.4 pg 26.0 - 34.0 pg [facility] MCHC (RBC) [Mass/Vol] 33.6 g/dL 30.5 - 36.0 g/dL [facility] MCV (RBC) [Entitic vol] 84.6 fL 80.0 - 100.0 fL [facility] Nucleated RBC (Bld) [#/Vol] NINF [facility] Platelet mean volume (Bld) [Entitic vol] 11.4 fL 9.0 - 12.7 fL [facility] Platelets (Bld) [#/Vol] 176 10*3/uL [facility] RBC (Bld) [#/Vol] 4.15 10*6/uL 3.90 - 5.2 0 m/uL [facility] WBC (Bld) [#/Vol] 6.68 10*3/uL [facility] Erythrocyte distribution width (RBC) [Ratio] 16.9 % High 11.5-15.0 [facility] Comment on above: Order Comment: Speci men Type: TISSUE SPECIMEN Ordering Facility: [facility] Address: [address] [place] [address] Performed By: #### S #### [facility] CLIA [id number] [address] [place] [address] [place] Hematocrit (Bld) [Volume fraction] 35.1 % Low 36.0-46.0 [facility] Comment on above: Order Comment: Speci men Type: TISSUE SPECIMEN Ordering Facility: [facility] Address: [address] [place] [address] Performed By: #### S #### [facility] CLIA [id number] [address] [place] [address] [place] Hemoglobin (Bld) [Mass/Vol] 11.8 g/dL Normal 11.5-15.5 [facility] Comment on above: Order Comment: Speci men Type: TISSUE SPECIMEN Ordering Facility: [facility] Address: [address] [place] [address] Performed By: #### S #### [facility] CLIA [id number] [address] [place] [address] [place] MCH (RBC) [Entitic mass] 28.4 pg Normal 26.0-34.0 [facility] Comment on above: Order Comment: Speci men Type: TISSUE SPECIMEN Ordering Facility: [facility] Address: [address] [place] [address] Performed By: #### S #### [facility] CLIA [id number] [address] [place] [address] [place] MCHC (RBC) [Mass/Vol] 33.6 g/dL Normal 30.5-36.0 [facility] Comment on above: Order Comment: Speci men Type: TISSUE SPECIMEN Ordering Facility: [facility] Address: [address] [place] [address] Performed By: #### S #### [facility] CLIA [id number] [address] [place] [address] [place] MCV (RBC) [Entitic vol] 84.6 fL Normal 80.0-100.0 [facility] Comment on above: Order Comment: Speci men Type: TISSUE SPECIMEN Ordering Facility: [facility] Address: [address] [place] [address] Performed By: #### S #### [facility] CLIA [id number] [address] [place] [address] [place] Nucleated RBC (Bld) [#/Vol] 10*3/uL Normal <0.01 [facility] Comment on above: Order Comment: Speci men Type: TISSUE SPECIMEN Ordering Facility: [facility] Address: [address] [place] [address] Performed By: #### S #### [facility] CLIA [id number] [address] [place] [address] [place] Platelet mean volume (Bld) [Entitic vol] 11.4 fL Normal 9.0-12.7 [facility] Comment on above: Order Comment: Speci men Type: TISSUE SPECIMEN Ordering Facility: [facility] Address: [address] [place] [address] Performed By: #### S #### [facility] CLIA [id number] [address] [place] [address] [place] Platelets (Bld) [#/Vol] 176 10*3/uL Normal 150-400 [facility] Comment on above: Order Comment: Speci men Type: TISSUE SPECIMEN Ordering Facility: [facility] Address: [address] [place] [address] Performed By: #### S #### [facility] CLIA [id number] [address] [place] [address] [place] RBC (Bld) [#/Vol] 4.15 10*6/uL Normal 3.90-5.20 [facility] Comment on above: Order Comment: Speci men Type: TISSUE SPECIMEN Ordering Facility: [facility] Address: [address] [place] [address] Performed By: #### S #### [facility] CLIA [id number] [address] [place] [address] [place] WBC (Bld) [#/Vol] 6.68 10*3/uL Normal 3.70-11.00 [facility] Comment on above: Order Comment: Speci men Type: TISSUE SPECIMEN Ordering Facility: [facility] Address: [address] [place] [address] Performed By: #### S #### [facility] CLIA [id number] [address] [place] [address] [place] CNOVon 04-28-2024 CNOV Office Visit (OBGYWM ) BETYS MESA ([id number]) 1995 F Date Time Provider Department 04/28/24 11:00 AM SUSHIL VILLANUEVA OBGYWM During your visit today, we recorded the following information about you: Blood pressure Weight Height Last Period 116 97.8 kg 1.784 m 02/18/24 Sushil Villanueva APRN.SUPERVISOR STOCK [employer]ANCH 04/28/2024 12:59 PM Signed Betsy Evelin Mesa is a 29 year old female [...] L3 SAB0 IAB0 Ectopic0 Multiple0 Live Births3 [address] Judge History LMP: 02/18/2024 (Within Days), Having periods Age at Menarche: Age at First : 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 As applicable, any other physician, advance practice provider, medical student, or other health professional student that will be observing or involved in the sensitive examination for educational or training purposes was discussed with the Patient or Authorized Instrumentation And Controls Technician. The Patient or Authorized Instrumentation And Controls Technician has agreed to proceed with the sensitive [...] - ICD9: V22.1, ICD10: Z34.91 - POC LINE PATROLMAN ULTRASOUND - HCG QUANTITATIVE - COMPLETE BLOOD COUNT - TYPE + SCREEN - URINE CULTURE - PELVIC US WHI - HEMOGLOBIN A1C RTO for formal ultrasound and visit after or sooner as needed. Sushil Villanueva APRN.SUPERVISOR ST[employer] Medical Decision Making: Problems: Moderate: New problem [...] - Hives Date Reviewed: 04/28/2024 Reviewed by: Suhsil Villanueva APRN.SUPERVISOR [employer] - Fully Assessed Reason for Visit: Missed menses [Other] Primary Visit Diagnosis: with uncertain viability, single or unspecified fetus [O36.80X0] Other Visit Diagnosis: with uncertain dates in first trimester [Z34.91] Order(s):POC LINE PATROLMAN ULTRASOUND [[id number]] Order #: [id number]. (more content not included)... Normal [facility] HbA1c (Bld)on 04-28-2024 Average glucose Estimated from glycated hemoglobin (Bld) [Mass/Vol] 120 mg/dL Normal [facility] Comment on above: Order Comment: Jessica rojo Type: BLOOD SPECIMEN Ordering Facility: [facility] Address: [address] [place] [address] Result Comment: eAG: (Estimated average glucose) is a calculated value from HgbA1c and is signs sales representative of the average blood glucose level in the last 2-3 month period. Performed By: #### 5 5454-3 #### [facility] CLIA [id number] [address] [place] [address] [place] HbA1c (Bld) [Mass fraction] 5.8 % High 4.3-5.6 [facility] Comment on above: Order Comment: Jessica rojo Type: BLOOD SPECIMEN Ordering Facility: [facility] Address: [address] [place] [address] Result Comment: Amer [place] Diabetes Association guidelines indicate that patients with HgbA1c in the range 5.7-6.4% are at increased risk for development of diabetes, and intervention by lifestyle modification may be beneficial. HgbA1c greater or equal to 6.5% is considered diagnostic of diabetes. Performed By: #### 5 5454-3 #### [facility] CLIA [id number] [address] [place] [address] [place] POC LINE PATROLMAN ULTRASOUNDon 04-28-20 24 Indication Viability; confirm cardiac [...] Read By: Sushil Villanueva NP MATERNAL MEDICINE [facility] Radiology Study observation (narrative) [facility] TYPE + SCREEN PRENATALon ABO O Normal [facility] Comment on above: Order Comment: Jessica rojo Type: BLOOD SPECIMEN Ordering Facility: [facility] Address: [address] [place] [address] Performed By: #### T SPN #### [facility] CLIA [id number] [address] [place] [address] [place] Rh Nom (Bld) Positive Normal [facility] Comment on above: Order Comment: Speci darrel Type: BLOOD SPECIMEN Ordering Facility: [facility] Address: [address] [place] [address] Performed By: #### T SPN #### [facility] CLIA [id number] [address] [place] [address] [place] TYPE AND SCREEN EXPIRATION 05/01/2024 23:59 Normal [facility] Comment on above: Order Comment: Jessica rojo Type: BLOOD SPECIMEN Ordering Facility: [facility] Address: [address] [place] [address] Performed By: #### T SPN #### [facility] CLIA [id number] [address] [place] [address] [place] hCG Titer Quant., Serumon HCG QUANT. 787 mIU/mL High 1-3 [facility] Comment on above: Result Comment: hCG levels with Gestational Age Gestational Age hCG mIU/mL (IU/L) 0.2 - 1 week 5 - 50 1-2 weeks 50 - 500 2-3 weeks 100 - 5000 3-4 weeks 500 - 58528 4-5 weeks 1000 - 19416 5-6 weeks 43106 - 100,000 6-8 weeks 85760 - 200,000 2-3 months 52057 - 100,000 Performed By: #### L 500.2500, L100.0100 #### [facility] [address] [place], [address] 12 Lead EKGon 04-03-2024 12 Lead EKG [facility] Cardiovascular Services [address] [place] [address] 12 Lead EKG 04/03/24 0641 MR#: [id number] Acct: [id number] Name: BETSY MESA Rep #: [id number] : 1995 29 From: Hero Mcadams MD [...] ECG Confirmed by HERO MCADAMS MD ([id number]), editor dictionary LEELEE ESCAMILLA ([id number]) on 04/03/2024 1:56:29 PM Referred By: Confirmed By:HERO MCADAMS MD 04/03/24 1356 Date Hero Mcadams MD CC: Dr. René Mohan MD; No Primary Care Physician Signed Normal [facility] CBC W/Diff, Automatedon 09-0 5-2023 Absolute Lymph 2.23 X10 3/uL Normal 0.83-4.51 [facility] Comment on above: Performed By: #### L 500.2500, L100.0100 #### [facility] [address] [place], [address] Absolute Neut 2.2 X10 3/uL Normal 2.0-7.7 [facility] Comment on above: Performed By: #### L 500.2500, L100.0100 #### [facility] [address] [place], [address] Basophils/100 WBC (Bld) 0.2 % Normal 0-1 [facility] Comment on above: Performed By: #### L 500.2500, L100.0100 #### [facility] [address] [place], [address] Eosinophils/100 WBC (Bld) 2.0 % Normal 0-5 [facility] Comment on above: Performed By: #### L 500.2500, L100.0100 #### [facility] [address] [place], [address] Erythrocyte distribution width (RBC) [Ratio] 17.5 % High 11.6-14.6 [facility] Comment on above: Performed By: #### L 500.2500, L100.0100 #### [facility] [address] [place], [address] Hematocrit (Bld) [Volume fraction] 36.1 % Low 37-47 [facility] Comment on above: Performed By: #### L 500.2500, L100.0100 #### [facility] [address] [place], [address] Hemoglobin (Bld) [Mass/Vol] 11.5 g/dL Low 12.0-15.0 [facility] Comment on above: Performed By: #### L 500.2500, L100.0100 #### [facility] [address] [place], [address] IG% 0.200 Normal 0.0-0.9 [facility] Comment on above: Result Comment: IG% - Immature Granulocytes (promyelocytes, myelocytes and metamyelocytes) > 1% indicates that a LEFT SHIFT is Present. Performed By: #### L 500.2500, L100.0100 #### [facility] [address] [place], [address] Lymphocytes/100 WBC (Bld) 44.2 % High 19-41 [facility] Comment on above: Performed By: #### L 500.2500, L100.0100 #### [facility] [address] [place], [address] MCH (RBC) [Entitic mass] 27.1 pg Normal 27.0-32.0 [facility] Comment on above: Performed By: #### L 500.2500, L100.0100 #### [facility] [address] [place], [address] MCHC (RBC) [Mass/Vol] 31.9 g/dL Low 32-36 [facility] Comment on above: Performed By: #### L 500.2500, L100.0100 #### [facility] [address] [place], [address] MCV (RBC) [Entitic vol] 84.9 fL Normal 81-99 [facility] Comment on above: Performed By: #### L 500.2500, L100.0100 #### [facility] [address] [place], [address] Monocytes/100 WBC (Bld) 10.9 % High 0-10 [facility] Comment on above: Performed By: #### L 500.2500, L100.0100 #### [facility] [address] [place], [address] Neutrophils/100 WBC (Bld) 42.5 % Low 47-70 [facility] Comment on above: Performed By: #### L 500.2500, L100.0100 #### [facility] [address] [place], [address] Nucleated RBC (Bld) [#/Vol] 0 10*3/uL Normal 0-5 [facility] Comment on above: Performed By: #### L 500.2500, L100.0100 #### [facility] [address] [place], [address] Platelet mean volume (Bld) [Entitic vol] 11.2 fL Normal 6.2-12.0 [facility] Comment on above: Performed By: #### L 500.2500, L100.0100 #### [facility] [address] [place], [address] Platelets (Bld) [#/Vol] 167 10*3/uL Normal 150-450 [facility] Comment on above: Performed By: #### L 500.2500, L100.0100 #### [facility] [address] [place], [address] RBC (Bld) [#/Vol] 4.25 10*6/uL Normal 4.2-5.4 [facility] Comment on above: Performed By: #### L 500.2500, L100.0100 #### [facility] [address] [place], [address] RDW SD 54.1 fl High 35.1-43.9 [facility] Comment on above: Performed By: #### L 500.2500, L100.0100 #### [facility] [address] [place], [address] WBC (Bld) [#/Vol] 5.1 10*3/uL Normal 4.4-11.0 [facility] Comment on above: Performed By: #### L 500.2500, L100.0100 #### [facility] [address] [place], [address] Comprehensive Metabolic Prof ilon 04-03-2024 Albumin [Mass/Vol] 3.5 g/dL Normal 3.2-5.0 [facility] Comment on above: Performed By: #### L 500.2500, L100.0100 #### [facility] [address] [place], [address] Albumin/Globulin [Mass ratio] 1.0 {ratio} Normal 0.9-2.4 [facility] Comment on above: Performed By: #### L 500.2500, L100.0100 #### [facility] [address] [place], [address] ALK P 50 U/L Normal 45-117 [facility] Comment on above: Performed By: #### L 500.2500, L100.0100 #### [facility] [address] [place], [address] ALT [Catalytic activity/Vol] 17 U/L Normal 13-56 [facility] Comment on above: Performed By: #### L 500.2500, L100.0100 #### [facility] [address] [place], [address] AST [Catalytic activity/Vol] 16 U/L Normal 15-37 [facility] Comment on above: Performed By: #### L 500.2500, L100.0100 #### [facility] [address] [place], [address] Bilirubin [Mass/Vol] 0.10 mg/dL Low 0.20-1.00 [facility] Comment on above: Result Comment: For patients on eltrombopag therapy, use of Dimension [place] TBIL is not recommended. Performed By: #### L 500.2500, L100.0100 #### [facility] [address] [place], [address] BUN/CRE 9.4 RATIO Low 10-20 [facility] Comment on above: Performed By: #### L 500.2500, L100.0100 #### [facility] [address] [place], [address] CA,Total 8.8 mg/dL Normal 8.5-10.1 [facility] Comment on above: Performed By: #### L 500.2500, L100.0100 #### [facility] [address] [place], [address] Chloride [Moles/Vol] 106 mmol/L Normal 98-107 [facility] Comment on above: Performed By: #### L 500.2500, L100.0100 #### [facility] [address] [place], [address] CO2 [Moles/Vol] 25.0 mmol/L Normal 21.0-32.0 [facility] Comment on above: Performed By: #### L 500.2500, L100.0100 #### [facility] [address] [place], [address] Creatinine [Mass/Vol] 0.74 mg/dL Normal 0.55-1.02 [facility] Comment on above: Result Comment: The validity of the calculated GFR GFRAA in patients over 70 years has not been determined. Clinical correlation is essential. Performed By: #### L 500.2500, L100.0100 #### [facility] [address] [place], [address] ECRCL 141.89 ml/min Normal [facility] Comment on above: Performed By: #### L 500.2500, L100.0100 #### [facility] [address] [place], [address] EST GFR - AA 118 mL/min Normal >60 [facility] Comment on above: Result Comment: Afri can Japanese GFR Calc Performed By: #### L 500.2500, L100.0100 #### [facility] [address] [place], [address] GAP 5 Normal 5-15 [facility] Comment on above: Performed By: #### L 500.2500, L100.0100 #### [facility] [address] [place], [address] GFR/1.73 sq M.predicted among non-blacks MDRD (S/P/Bld) [Vol rate/Area] 98 mL/min/{1.73_m2} Normal >60 [facility] Comment on above: Result Comment: Non- GFR Calc Performed By: #### L 500.2500, L100.0100 #### [facility] [address] [place], [address] Globulin (S) [Mass/Vol] 3.6 g/dL Normal 2.2-4.2 [facility] Comment on above: Performed By: #### L 500.2500, L100.0100 #### [facility] [address] [place], [address] Glucose [Mass/Vol] 110 mg/dL High 74-106 [facility] Comment on above: Result Comment: Fast ing Glucose result from 100 to 125 mg/dL suggests IMPAIRED HOMEOSTASIS per A.D.A. criteria. Performed By: #### L 500.2500, L100.0100 #### [facility] [address] [place], [address] Potassium [Moles/Vol] 3.7 mmol/L Normal 3.5-5.1 [facility] Comment on above: Performed By: #### L 500.2500, L100.0100 #### [facility] [address] [place], [address] Sodium [Moles/Vol] 136 mmol/L Normal 136-145 [facility] Comment on above: Performed By: #### L 500.2500, L100.0100 #### [facility] [address] [place], [address] T PROT 7.1 g/dL Normal 6.4-8.2 [facility] Comment on above: Performed By: #### L 500.2500, L100.0100 #### [facility] [address] [place], [address] Urea nitrogen [Mass/Vol] 7 mg/dL Normal 7-18 [facility] Comment on above: Performed By: #### L 500.2500, L100.0100 #### [facility] [address] [place], [address] Emergency Department Summary on 04-03-2024 Emergency Department Summary [facility] Medical Records Department [address] [place] [address] Emergency Department Summary 04/03/24 MR#: [id number] Acct: [id number] Name: BETSY MESA Rep #: [id number] : 1995 29 From: René Mohan MD PCP: Care Physician,No Primary Status:REG ER Location: ED ADDENDUM by Dr. Harjit Guerin, on 04/03/24 at 1010 Patient case was [...] she has not followed up with an BUYER ASSISTANT yet. [facility] Medical History Anxiety Paresthesias Cervical [...] rhythm. No (more content not included)... Normal [facility] M100.678on 04-03-2024 M100.678 Copy of report sent to Infection Control Printer MS#[id number] 04/03/24 0747 BLUCAS. FLUABV+SARS-CoV-2+RSV Pnl Resp HUNG+probe SARS-CoV-2 (COVID 19) A Positive A INFLUENZA A Negative INFLUENZA B Negative RSV PCR Negative SARS-CoV-2 (COVID 19 PCR) Normal [facility] Comment on above: Performed By: #### L 500.2500, L100.0100 #### [facility] [place], [address] ,Urineon 04-03-2024 Beta HCG ( test) Ql (U) Positive Abnormal [facility] Comment on above: Order Comment: CLEAN CATCH Result Comment: PREG LAMIN TEST is *POSITIVE* Performed By: #### L 500.2500, L100.0100 #### [facility] [address] [place], [address] Transvaginal w/Preg USon Transvaginal w/Preg US [facility] Imaging Services [address] [place] [address] Transvaginal w/Preg US MR#: [id number] Acct: [id number] Name: BETSY MESA Rep #: [id number] : 1995 F 29 From: Zack wood MD PCP: Care Physician,No Primary Status: REG ER Study: Transvaginal w/Preg US Date of Exam: 04/03/24 Exam# [id number] Ordering Dr: René Mohan [place] [id number] EXAM: US , TRANSVAGINAL CLINICAL INDICATION: Elevated [...] Signed: Zack Carlos MD at 7:55 EDT , CC: Dr. René Mohan MD; No Primary Care Physician Senior Health Educator: Signed Normal [facility] Urinalysis, Completeon 04-03 EPI,SQUAMOUS 0-5 SEEN Normal 5-10 [facility] Comment on above: Order Comment: CLEAN CATCH Performed By: #### L 500.2500, L100.0100 #### [facility] [address] [place], [address] BACTERIA 0 SEEN Normal None Seen [facility] Comment on above: Order Comment: CLEAN CATCH Performed By: #### L 500.2500, L100.0100 #### [facility] [address] [place], [address] Mucus Ql (Urine sed) 0 SEEN Normal [facility] Comment on above: Order Comment: CLEAN CATCH Performed By: #### L 500.2500, L100.0100 #### [facility] [address] [place], [address] RBC 0 SEEN Normal 0-5 [facility] Comment on above: Order Comment: CLEAN CATCH Performed By: #### L 500.2500, L100.0100 #### [facility] [address] [place], [address] WBC 0 SEEN Normal 0-5 [facility] Comment on above: Order Comment: CLEAN CATCH Performed By: #### L 500.2500, L100.0100 #### [facility] [address] [place], [place], [address] hCG Titer Quant., Serumon HCG QUANT. 434 mIU/mL High 1-3 [facility] Comment on above: Result Comment: hCG levels with Gestational Age Gestational Age hCG mIU/mL (IU/L) 0.2 - 1 week 5 - 50 1-2 weeks 50 - 500 2-3 weeks 100 - 5000 3-4 weeks 500 - 99990 4-5 weeks 1000 - 15578 5-6 weeks 27690 - 100,000 6-8 weeks 19549 - 200,000 2-3 months 27255 - 100,000 Performed By: #### L 500.2500, L100.0100 #### [facility] [address] [place], [address] A1Con 02-20-2024 Glucose [Mass/Vol] 137 mg/dL Normal [facility] ([place]) Comment on above: Result Comment: Sarah mated Average Glucose calculated by equation ((28.7xA1C)-46.7) Estimated average glucose (eAG) is a calculated value from Hemoglobin A1C and is signs sales representative of the average blood glucose level in the last 2-3 month period. Normal range: less than 114 mg/dL Performed By: #### N GPCR1, CTPCR #### [address] [address] HbA1c (Bld) [Mass fraction] 6.4 % High 4.0-6.0 [facility] ([place]) Comment on above: Performed By: #### N GPCR1, CTPCR #### [address] [address] FT3on 02-20-2024 Free T3 [Mass/Vol] 3.01 pg/mL Normal 2.30-4.20 [facility] ([place]) Comment on above: Performed By: #### F T4, FT3 #### [facility] [address] [place] [address] FT4on 02-20-2024 Free T4 [Mass/Vol] 1.02 ng/dL Normal 0.89-1.76 [facility] ([place]) Comment on above: Result Comment: No te - New Reference Range in effect 20 Performed By: #### F T4, FT3 #### [address] [address] .Auto Diffon 02-19-2024 Basophil, Absolute 0.0 10 3/mcL Normal 0.0-0.3 [facility] ([place]) Comment on above: Performed By: #### T SH, CBC, A1C, FE, ANEU, FERR, ADIFF, CMP, GFR, MG #### [address] [address] Basophils/100 WBC (Bld) 0.4 % Normal 0.0-2.5 [facility] ([place]) Comment on above: Performed By: #### T SH, CBC, A1C, FE, ANEU, FERR, ADIFF, CMP, GFR, MG #### [address] [address] Eosinophil, Absolute 0.2 10 3/mcL Normal 0.0-0.7 [facility] ([place]) Comment on above: Performed By: #### T SH, CBC, A1C, FE, ANEU, FERR, ADIFF, CMP, GFR, MG #### [address] [address] Eosinophils/100 WBC (Bld) 2.7 % Normal 0.0-6.0 [facility] ([place]) Comment on above: Performed By: #### T SH, CBC, A1C, FE, ANEU, FERR, ADIFF, CMP, GFR, MG #### [address] [address] Lymphocyte, Absolute 2.1 10 3/mcL Normal 0.9-4.3 [facility] ([place]) Comment on above: Performed By: #### T SH, CBC, A1C, FE, ANEU, FERR, ADIFF, CMP, GFR, MG #### [address] [address] Lymphocytes/100 WBC (Bld) 30.6 % Normal 20.0-40.0 [facility] ([place]) Comment on above: Performed By: #### T SH, CBC, A1C, FE, ANEU, FERR, ADIFF, CMP, GFR, MG #### [address] [address] Monocyte, Absolute 0.4 10 3/mcL Normal 0.1-1.4 [facility] ([place]) Comment on above: Performed By: #### T SH, CBC, A1C, FE, ANEU, FERR, ADIFF, CMP, GFR, MG #### [address] [address] Monocytes/100 WBC (Bld) 5.7 % Normal 2.0-13.0 [facility] ([place]) Comment on above: Performed By: #### T SH, CBC, A1C, FE, ANEU, FERR, ADIFF, CMP, GFR, MG #### [address] [address] Neutrophils/100 WBC (Bld) 60.6 % Normal 50.0-75.0 [facility] ([place]) Comment on above: Performed By: #### T SH, CBC, A1C, FE, ANEU, FERR, ADIFF, CMP, GFR, MG #### [address] [address] .GFRon 02-19-2024 GFR >60 Normal [facility] ([place]) Comment on above: Result Comment: GFR Population [...] Performed By: #### N GPCR1, CTPCR #### [address] [address] GFR Non- >60 Normal [facility] ([place]) Comment on above: Result Comment: GFR Population [...] Performed By: #### N GPCR1, CTPCR #### [place] [address] .NEUABSon 02-19-2024 Neutrophil, Absolute 4.1 10 3/mcL Normal 2.3-8.1 [facility] ([place]) Comment on above: Performed By: #### T SH, CBC, A1C, FE, ANEU, FERR, ADIFF, CMP, GFR, MG #### [place] [address] CBCon 02-19-2024 Erythrocyte distribution width (RBC) [Ratio] 17.6 % High 11.5-15.5 [facility] ([place]) Comment on above: Performed By: #### T SH, CBC, A1C, FE, ANEU, FERR, ADIFF, CMP, GFR, MG #### [place] [address] Hematocrit (Bld) [Volume fraction] 35.4 % Normal 34.0-46.0 [facility] ([place]) Comment on above: Performed By: #### T SH, CBC, A1C, FE, ANEU, FERR, ADIFF, CMP, GFR, MG #### [place] [address] Hgb 11.3 G/dL Low 12.0-16.0 [facility] ([place]) Comment on above: Performed By: #### T SH, CBC, A1C, FE, ANEU, FERR, ADIFF, CMP, GFR, MG #### [place] [address] MCH (RBC) [Entitic mass] 26.5 pg Low 27.0-33.0 [facility] ([place]) Comment on above: Performed By: #### T SH, CBC, A1C, FE, ANEU, FERR, ADIFF, CMP, GFR, MG #### [place] [id number] MCHC 32.0 G/dL Normal 32.0-36.0 [facility] ([place]) Comment on above: Performed By: #### T SH, CBC, A1C, FE, ANEU, FERR, ADIFF, CMP, GFR, MG #### [place] [address] MCV (RBC) [Entitic vol] 82.9 fL Normal 80.0-99.0 [facility] ([place]) Comment on above: Performed By: #### T SH, CBC, A1C, FE, ANEU, FERR, ADIFF, CMP, GFR, MG #### [place] [address] Platelet 205 10 3/mcL Normal 150-450 [facility] ([place]) Comment on above: Performed By: #### T SH, CBC, A1C, FE, ANEU, FERR, ADIFF, CMP, GFR, MG #### [place] [address] Platelet mean volume (Bld) [Entitic vol] 9.5 fL Normal 6.6-10.5 [facility] ([place]) Comment on above: Performed By: #### T SH, CBC, A1C, FE, ANEU, FERR, ADIFF, CMP, GFR, MG #### [place] [address] RBC 4.27 10 6/mcL Normal 4.10-5.30 [facility] ([place]) Comment on above: Performed By: #### T SH, CBC, A1C, FE, ANEU, FERR, ADIFF, CMP, GFR, MG #### [place] [id number] WBC 6.8 10 3/mcL Normal 4.5-10.8 [facility] ([place]) Comment on above: Performed By: #### T SH, CBC, A1C, FE, ANEU, FERR, ADIFF, CMP, GFR, MG #### [place] [address] CMPon 02-19-2024 Albumin Level 3.8 G/dL Normal 3.2-4.8 [facility] ([place]) Comment on above: Performed By: #### N GPCR1, CTPCR #### [place] [address] Albumin/Globulin [Mass ratio] 1.2 {ratio} Normal 0.9-1.6 [facility] ([place]) Comment on above: Performed By: #### N GPCR1, CTPCR #### [place] [address] ALP [Catalytic activity/Vol] 63 U/L Normal 38-126 [facility] ([place]) Comment on above: Performed By: #### N GPCR1, CTPCR #### [place] [address] ALT [Catalytic activity/Vol] 17 U/L Normal 10-49 [facility] ([place]) Comment on above: Performed By: #### N GPCR1, CTPCR #### [place] [address] AST [Catalytic activity/Vol] 14 U/L Normal 8-34 [facility] ([place]) Comment on above: Performed By: #### N GPCR1, CTPCR #### [place] [address] Bili Total 0.30 mg/dL Normal 0.20-1.20 [facility] ([place]) Comment on above: Result Comment: Use of this assay is not recommended for patients undergoing treatment with eltrombopag due to the potential for falsely elevated results. Performed By: #### N GPCR1, CTPCR #### [place] [address] BUN/Creatinine Ratio 14.3 ratio Normal 10.0-22.0 [facility] ([place]) Comment on above: Performed By: #### N GPCR1, CTPCR #### [address] [address] Calcium [Mass/Vol] 9.9 mg/dL Normal 8.7-10.4 [facility] ([place]) Comment on above: Performed By: #### N GPCR1, CTPCR #### [address] [address] Chloride [Moles/Vol] 108 mmol/L Normal 98-110 [facility] ([place]) Comment on above: Performed By: #### N GPCR1, CTPCR #### [address] [address] CO2 [Moles/Vol] 28 mmol/L Normal 22-32 [facility] ([place]) Comment on above: Performed By: #### N GPCR1, CTPCR #### [address] [address] Creatinine [Mass/Vol] 0.70 mg/dL Normal 0.50-1.20 [facility] ([place]) Comment on above: Performed By: #### N GPCR1, CTPCR #### [address] [address] Electrolyte Balance 3.0 mEq/L Low 4.0-15.0 [facility] ([place]) Comment on above: Performed By: #### N GPCR1, CTPCR #### [address] [address] Globulin 3.3 G/dL Normal 1.5-3.8 [facility] ([place]) Comment on above: Performed By: #### N GPCR1, CTPCR #### [address] [address] Glucose [Mass/Vol] 94 mg/dL Normal 70-110 [facility] ([place]) Comment on above: Performed By: #### N GPCR1, CTPCR #### [address] [address] Potassium [Moles/Vol] 4.3 mmol/L Normal 3.5-5.0 [facility] ([place]) Comment on above: Performed By: #### N GPCR1, CTPCR #### [place] [address] Sodium [Moles/Vol] 139 mmol/L Normal 136-145 [facility] ([place]) Comment on above: Performed By: #### N GPCR1, CTPCR #### [place] [address] Total Protein 7.1 G/dL Normal 5.7-8.2 [facility] ([place]) Comment on above: Result Comment: No te - New Reference Range in effect 20 Performed By: #### N GPCR1, CTPCR #### [place] [address] Urea nitrogen [Mass/Vol] 10.0 mg/dL Normal 8.0-22.0 [facility] ([place]) Comment on above: Performed By: #### N GPCR1, CTPCR #### [place] [id number] FEon 02-19-2024 Iron [Mass/Vol] 36 ug/dL Low 50-170 [facility] ([place]) Comment on above: Performed By: #### T SH, CBC, A1C, FE, ANEU, FERR, ADIFF, CMP, GFR, MG #### [place] [address] Michael 02-19-2024 Ferritin [Mass/Vol] 2.7 ng/mL Low 8.0-252.0 [facility] ([place]) Comment on above: Performed By: #### T SH, CBC, A1C, FE, ANEU, FERR, ADIFF, CMP, GFR, MG #### [place] [address] LABORATORYOrdered By: SYSTEM SYSTEM on 02-19-2024 Albumin BCP dye [Mass/Vol] 3.8 G/dL Normal 3.2 - 4.8 G/dL ADM SS Albumin/Globulin [Mass ratio] 1.2 {ratio} Normal 0.9 - 1.6 ratio AH ADM SS ALP [Catalytic activity/Vol] 63 U/L Normal 38 - 126 U/L ADM SS ALT No additional P-5'-P [Catalytic activity/Vol] 17 U/L Normal 10 - 49 U/L AH ADM SS AST [Catalytic activity/Vol] 14 U/L [...] calculated value from Hemoglobin A1C and is signs sales representative of the average blood glucose level in the last 2-3 month period. Normal range: less than 114 mg/dL HbA1c (Bld) [Mass fraction] 6.4 % High 4.0 - 6.0 % Auto Chem SS Hematocrit (Bld) [Volume fraction] 35.4 % Normal 34.0 - 46.0 % Workflow SS Hemoglobin (Bld) [Mass/Vol] 11.3 G/dL Low 12.0 - 16.0 G/dL Workflow SS Iron [Mass/Vol] 36 ug/dL Low [...] 6.8 103/mcL Normal 4.5 - 10.8 10^3/mcL AH Workflow SS MGon 02-19-2024 Magnesium [Mass/Vol] 1.9 mg/dL Normal 1.6-2.4 [facility] ([place]) Comment on above: Performed By: #### N GPCR1, CTPCR #### [place] [id number] TSHon 02-19-2024 TSH 0.121 mIU/mL Low 0.550-4.780 [facility] ([place]) Comment on above: Result Comment: No te - New Reference Range in effect 20 Performed By: #### N GPCR1, CTPCR #### [place] [address] CTPCRon 02-07-2024 C. trachomatis Interp Normal See CT Interp N [facility] ([place]) Comment on above: Result Comment: C. t rachomatis DNA not detected. Specimen is presumptive negative for C. trachomatis. A negative result does not preclude C. trachomatis infection because results depend on adequate specimen collection, absence of inhibitors, and sufficient DNA to be detected. See CT Interp N Performed By: #### N GPCR1, CTPCR #### [address] [address] C.trachomatis PCR Negative Normal Negative [facility] ([place]) Comment on above: Result Comment: Mole cular (PCR) assay performed on the Jose Sera 4800 system. Performed By: #### N GPCR1, CTPCR #### [address] [address] Chlam Source Cervix Normal [facility] ([place]) Comment on above: Performed By: #### N GPCR1, CTPCR #### [address] [address] [id number] 02-07-2024 GC PCR Source Cervix Normal [facility] ([place]) Comment on above: Performed By: #### N GPCR1, CTPCR #### [address] [address] N. gonorrhoeae (PCR) Negative Normal Negative [facility] ([place]) Comment on above: Result Comment: Mateo cular (PCR) assay performed on the Jose Sera 4800 System. Performed By: #### N GPCR1, CTPCR #### [address] [address] N. gonorrhoeae Interp Normal See NG Interp N [facility] ([place]) Comment on above: Result Comment: N. g onorrhoeae DNA not detected. Specimen is presumptive negative for N. gonorrhoeae. A negative result does not preclude Neisseria gonorrhoeae infection because results depend on adequate specimen collection, absence of inhibitors, and sufficient DNA to be detected. See NG Interp N Performed By: #### N GPCR1, CTPCR #### [address] [address] CTPCRon 01-02-2024 C. trachomatis Interp Normal [facility] ([place]) Comment on above: Result Comment: C. t rachomatis DNA not detected. Specimen is presumptive negative for C. trachomatis. A negative result does not preclude C. trachomatis infection because results depend on adequate specimen collection, absence of inhibitors, and sufficient DNA to be detected. See CT Interp N Performed By: #### C TPCR #### [address] [address] C.trachomatis PCR Negative Normal Negative [facility] ([place]) Comment on above: Result Comment: Mateo cular (PCR) assay performed on the Jose Sera 4800 system. Performed By: #### C TPCR #### [address] [address] Chlam Source Vaginal Normal [facility] ([place]) Comment on above: Performed By: #### C TPCR #### [address] [address] [id number] 01-02-2024 GC PCR Source Vaginal Normal [facility] ([place]) Comment on above: Performed By: #### N GPCR1, CTPCR #### [address] [address] N. gonorrhoeae (PCR) Negative Normal Negative [facility] ([place]) Comment on above: Result Comment: Mateo cosme (PCR) assay performed on the Jose Sera 4800 System. Performed By: #### N GPCR1, CTPCR #### [address] [address] N. gonorrhoeae Interp Normal See NG Interp N [facility] ([place]) Comment on above: Result Comment: N. g onorrhoeae DNA not detected. Specimen is presumptive negative for N. gonorrhoeae. A negative result does not preclude Neisseria gonorrhoeae infection because results depend on adequate specimen collection, absence of inhibitors, and sufficient DNA to be detected. See NG Interp N Performed By: #### N GPCR1, CTPCR #### [address] [address] CASE MANAGEMon 12-11-2023 CASE MANAGEM HNO ID: [id number] Author: ALLY LEHMAN RN Service: ? Author [...] Primary Care Physician Name/Phone: Dr. Marcelo Isbell [phone] Additional Information: Patient being discharged home today with self-care. S.O. to transport. No TCC needs. SIGNATURE: Ally Lehman RN PATIENT NAME: Betsy Mesa DATE: December 11, 2023 TIME: 3:07 PM CONTACT #: [phone] [facility] H[facility]: [id number] Author: LORETA FROST MD Service: Hospital Medicine [...] call for appointment?: Yes Marcelo Isbell DO [phone] [address] PCP Requested Referral Follow-Up Appointment For right-sided facial numbness and headache When: In 1 week Patient/Parents to call for appointment?: Yes Cecil Ramirez MD [phone] [facility] [address] PCP Requested Referral Additional Provider to Provider Information: Treatment Team: Attending Provider: Loreta Frost MD Primary Service: [facility] Consulting: Cecil Ramirez MD Transitions of Care Critical Issues: SPECIALIST FOLLOW-UP: Neurology if numbness persists GIL MEDICATION CHANGES: Amlodipine 5 mg p.o. daily, metformin 500 mg p.o. every morning LABS AND PROCEDURES PENDING AT DISCHARGE: No pending results. FOLLOW-UP APPOINTMENTS ALREADY SCHEDULED WITH A [facility] PROVIDER: No future appointments. ALLERGIES [...] Commonly k (more content not included)... Normal [facility] CONSULTon 12-11-2023 CONSULT HNO ID: [id number] Author: ALICIA ARELLANO MD Service: Neurology General [...] by shared medical record. HPI: This is MsMary Mesa a 28 year old female with [...] as needed for Pain.Disp: 30 tabletRfl: 0 Tskamxwj-At-Mtu-Fe-FA ( VITAMIN) tabTake 1 tablet by mouth [...] exam revea (more content not included)... 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 EXAM: MRI - CONTRAST TYPE: GROUP II PERIPHERAL IV DATA: Inpatient - refer to LDA documentation RADIOLOGY DEPARTMENT: MR; Exam(s) Completed: Head: Routine Brain SIGNATURE: Charlie SundayRT(R) PATIENT NAME: Betsy Mesa DATE: December 10, 2023 TIME: 9:13 PM Normal [facility] Basic metabolic 2000 panelon 12-10-2023 Anion gap [Moles/Vol] 15 mmol/L Normal 9-18 [facility] Comment on above: Order Comment: Speci men Type: BLOOD SPECIMEN Ordering Facility: [facility] Address: [address] [place] [address] Performed By: #### 2 4321-2, 05805-1 #### [facility] CLIA [id number] 1 [place] [address] [place] Calcium [Mass/Vol] 8.9 mg/dL Normal 8.5-10.2 [facility] Comment on above: Order Comment: Speci men Type: BLOOD SPECIMEN Ordering Facility: [facility] Address: [address] [place] [address] Performed By: #### 2 4321-2, 76544-5 #### [facility] CLIA [id number] 1 [place] [address] [place] Chloride [Moles/Vol] 106 mmol/L High 97-105 [facility] Comment on above: Order Comment: Speci men Type: BLOOD SPECIMEN Ordering Facility: [facility] Address: [address] [place] [address] Performed By: #### 2 4321-2, 12195-3 #### [facility] CLIA [id number] [address] [place] CO2 [Moles/Vol] 19 mmol/L Low 22-30 [facility] Comment on above: Order Comment: Speci men Type: BLOOD SPECIMEN Ordering Facility: [facility] Address: [address] [place] [address] Performed By: #### 2 4321-2, 20927-4 #### [facility] CLIA [id number] [address] [place] Creatinine [Mass/Vol] 0.69 mg/dL Normal 0.58-0.96 [facility] Comment on above: Order Comment: Speci men Type: BLOOD SPECIMEN Ordering Facility: [facility] Address: [address] [place] [address] Performed By: #### 2 4321-2, 91088-6 #### [facility] CLIA [id number] [address] [place] Creatinine and Glomerular filtration rate.predicted panel (S/P/Bld) 121 mL/min/1.73m??? Normal >=60 [facility] Comment on above: Order Comment: Speci men Type: BLOOD SPECIMEN Ordering Facility: [facility] Address: [address] [place] [address] Result Comment: Sarah mated Glomerular Filtration Rate [...] actual GFR. Performed By: #### 2 4321-2, 46294-9 #### [facility] CLIA [id number] 1 [place] [address] [place] Glucose [Mass/Vol] 80 mg/dL Normal 74-99 [facility] Comment on above: Order Comment: Jessica rojo Type: BLOOD SPECIMEN Ordering Facility: [facility] Address: [address] [place] [address] Result Comment: The [place] Diabetes Association (ADA) provides guidance for cutoff [...] Standards of Medical Care in Diabetes 2016, Japanese Diabetes Association. Diabetes Care. 2016.39(Suppl 1). Performed By: #### 2 432-, 67594-9 #### [facility] CLIA [id number] 1 [place] [address] [place] Potassium [Moles/Vol] 3.5 mmol/L Low 3.7-5.1 [facility] Comment on above: Order Comment: Jessica rojo Type: BLOOD SPECIMEN Ordering Facility: [facility] Address: [address] [place] [address] Performed By: #### 2 4321-2, 88270-0 #### [facility] CLIA [id number] 1 [place] [address] [place] Sodium [Moles/Vol] 140 mmol/L Normal 136-144 [facility] Comment on above: Order Comment: Specalesia rojo Type: BLOOD SPECIMEN Ordering Facility: [facility] Address: [address] [place], [place] [address] Performed By: #### 2 4321-2, 74138-8 #### [facility] CLIA [id number] [address] Urea nitrogen [Mass/Vol] 8 mg/dL Normal 7-21 [facility] Comment on above: Order Comment: Speci men Type: BLOOD SPECIMEN Ordering Facility: [facility] Address: [address] [place], [place] [address] Performed By: #### 2 4321-2, 22343-8 #### [facility] CLIA [id number] [address] [facility] CASE MGT INIT ASSESon 2023 CASE MGT INIT ASSES HNO ID: [id number] Author: ALLY LEHMAN RN Service: ? Author Type: Registered Nurse Type: Care Mgt Initial Assessment Filed: 12/10/2023 15:00 Note Text: CARE MANAGEMENT: ASSESSMENT AND DISCHARGE PLAN SERVICE DATE: December 10, 2023 SERVICE TIME: 1458 PCP: Marcelo Isbell DO Primary Contact: Extended Emergency Contact Information Primary Emergency Contact: Cooper Baca Mobile Relation: Significant other Admission Status: Observation Insurance Provider: [facility] MEDICAID OF [place] Discharge Planning requested by: Per Department Practice Potential Transition Plans No Services Indicated;Home Advance Directives Current Advance Directive: None Boarding Mother Attempted to Assist with AD Completion: Yes [...] Be able to go home, Independent living [place] of Choice Explained: [place] of [place] Given: No Reason Not Given: [...] December 10, 2023 TIME: 2:58 PM Normal [facility] HCG Preg Ur Qlon 12-10-2023 HCG ( test) Ql (U) Negative Normal Negative [facility] Comment on above: Order Comment: Speci men Type: URINE SPECIMEN Ordering Facility: [facility] Address: [address] [place] [address] Result Comment: This test is intended to aid in the early detection of . Very dilute urine samples, as indicated by a low specific gravity, may not contain signs sales representative levels of hCG. This test [...] . Performed By: #### 2 106-3 #### [facility] CLIA [id number] [address] [place] HISTORY PHYSICALon HISTORY PHYSICAL HNO ID: [id number] Author: ARJUN DICKSON DO Service: Hospital Medicine Author Type: Physician Type: H&P Filed: 12/09/2023 23:52 Note Text: DEPARTMENT OF HOSPITAL MEDICINE HISTORY AND PHYSICAL EXAM SERVICE DATE: 12/09/2023 SERVICE TIME: 11:18 PM Primary Care Physician: Estrella Pcp, HAND CLOTH EXAMINER NIGHT AND WEEKEND COVERAGE: [place] COVERAGE: From 7am - 7pm, please call sound After 7pm, please call cross cover pager #[phone] Subjective CHIEF COMPLAINT: Right facial numbness HPI: [...] for Pain., Disp: 30 tablet, Rfl: 0 Hmnsflmu-Ek-Jcw-Fe-FA ( VITAMIN) tab, Take 1 tablet by [...] 12/09/23 17:36 (more content not included)... Normal [facility] HbA1c (Bld)on 12-10-2023 Average glucose Estimated from glycated hemoglobin (Bld) [Mass/Vol] 134 mg/dL Normal [facility] Comment on above: Order Comment: Jessica rojo Type: BLOOD SPECIMEN Ordering Facility: [facility] Address: [address] [place] [address] Result Comment: eAG: (Estimated average glucose) is a calculated value from HgbA1c and is signs sales representative of the average blood glucose level in the last 2-3 month period. Performed By: #### 2 4321-2, 35323-0 #### [facility] CLIA [id number] [address] [place] [address] [facility] HbA1c (Bld) [Mass fraction] 6.3 % High 4.3-5.6 [facility] Comment on above: Order Comment: Jessica rojo Type: BLOOD SPECIMEN Ordering Facility: [facility] Address: [address] [place] [address] Result Comment: Amer ican Diabetes Association guidelines indicate that patients with HgbA1c in the range 5.7-6.4% are at increased risk for development of diabetes, and intervention by lifestyle modification may be beneficial. HgbA1c greater or equal to 6.5% is considered diagnostic of diabetes. Performed By: #### 2 4321-2, 65550-1 #### [facility] CLIA [id number] 1 [place] [address] [place] Lipid 1996 panelon 4 Cholesterol [Mass/Vol] 135 mg/dL Normal <200 [facility] Comment on above: Order Comment: Speci men Type: BLOOD SPECIMEN Ordering Facility: [facility] Address: [address] [place] [address] Result Comment: <200 mg/dL, Desirable 200-239 mg/dL, Borderline high >239 mg/dL, High Performed By: #### 2 4321-2, 66318-3 #### [facility] CLIA [id number] [address] [place] Cholesterol in HDL [Mass/Vol] 39 mg/dL Low >39 [facility] Comment on above: Order Comment: Yuriyi men Type: BLOOD SPECIMEN Ordering Facility: [facility] Address: [address] [place] [address] Result Comment: 40-5 9 mg/dL, Acceptable >59 mg/dL, High: Negative risk factor for coronary heart disease <40 mg/dL, Low: Positive risk factor for coronary heart disease Performed By: #### 2 4321-2, 93369-0 #### [facility] CLIA [id number] [address] [facility] Cholesterol in LDL [Mass/Vol] 80 mg/dL Normal <100 [facility] Comment on above: Order Comment: Jessica men Type: BLOOD SPECIMEN Ordering Facility: [facility] Address: [address] [place] [address] Result Comment: <100 mg/dL, Optimal 100-129 mg/dL, Near optimal/above optimal 130-159 mg/dL, Borderline high 160-189 mg/dL, High >189 mg/dL, Very high Secondary prevention optimal LDL Cholesterol levels are recommended to be < 70 mg/dL Performed By: #### 2 4321-2, 13623-0 #### [facility] CLIA [id number] [address] [place] Cholesterol in LDL/Cholesterol in HDL [Mass ratio] 2.05 {ratio} Normal <2.54 [facility] Comment on above: Order Comment: Speci men Type: BLOOD SPECIMEN Ordering Facility: [facility] Address: [address] [place] [address] Result Comment: Gifty yepez: 1. National Cholesterol Education Program ATP III Guideline At-A-Glance Quick Desk Reference: National Heart, Lung, and Blood Peck. National Institutes of Health. 2001: NIH Publication No. 01-3305. 2. An International Atherosclerosis Society position paper: global recommendations for the management of dyslipidemia: executive summary, Atherosclerosis. 2014: 232(2):410-413. Performed By: #### 2 4321-2, 37474-2 #### [facility] CLIA [id number] [address] [facility] Cholesterol in VLDL [Mass/Vol] 16 mg/dL Normal <30 [facility] Comment on above: Order Comment: Jessica rooj Type: BLOOD SPECIMEN Ordering Facility: [facility] Address: [address] [place] [address] Performed By: #### 2 4320-2, 70872-8 #### [facility] CLIA [id number] [address] [facility] Cholesterol non HDL [Mass/Vol] 96 mg/dL Normal <130 [facility] Comment on above: Order Comment: Jessica rojo Type: BLOOD SPECIMEN Ordering Facility: [facility] Address: [address] [place] [address] Result Comment: <130 mg/dL, Optimal 130-159 mg/dL, Near optimal/above optimal 160-189 mg/dL, Borderline high 190-219 mg/dL, High >219 mg/dL, Very high Secondary prevention optimal non HDL Cholesterol levels are recommended to be <100 mg/dL Performed By: #### 2 4321-2, 70578-7 #### [facility] CLIA [id number] [address] Cholesterol.total/Chol esterol in HDL [Mass ratio] 3.46 {ratio} Normal <5.10 [facility] Comment on above: Order Comment: Jessica rojo Type: BLOOD SPECIMEN Ordering Facility: [facility] Address: [address] [place] [address] Performed By: #### 2 4321-2, 28331-4 #### [facility] CLIA [id number] [address] FASTING TIME 8 hrs Normal [facility] Comment on above: Order Comment: Speci darrel Type: BLOOD SPECIMEN Ordering Facility: [facility] Address: [address] [place] [address] Performed By: #### 2 4321-2, 55505-1 #### [facility] CLIA [id number] [address] Triglyceride [Mass/Vol] 80 mg/dL Normal <150 [facility] Comment on above: Order Comment: Speci men Type: BLOOD SPECIMEN Ordering Facility: [facility] Address: [address] [place] [address] Result Comment: <150 mg/dL, Normal 150-199 mg/dL, Borderline high 200-499 mg/dL, High >499 mg/dL, Very high Performed By: #### 2 4321-2, 88469-1 #### [facility] CLIA [id number] [address] MRI BRAIN WO/W IVCONon 12-09 MRI BRAIN WO/W IVCON * * *Final Report* * * DATE OF EXAM: Dec 10 2023 9:29PM [facility] 0295 - MRI BRAIN WO/W [...] clinical examination, and consider further evaluation accordingly. Senior Health Educator: RADHA Transcribe Date/Time: Dec 10 2023 9:30P Dictated by : JOSUE HARRISON MD This examination was interpreted and the report reviewed and electronically signed by: JOSUE HARRISON MD on Dec 10 2023 9:38PM EST [id number] Normal [facility] THERAPY NTon 12-10-2023 THERAPY NT HNO ID: [id number] Author: DARRIUS GONZALEZ PT Service: Physical Therapy Author Type: Physical Therapist Type: Therapy (PT/OT/Speech/Resp) Filed: 12/10/2023 09:08 Note Text: PHYSICAL THERAPY MISSED VISIT SERVICE DATE: 12/10/2023 SERVICE TIME: 837 ROOM: [place] [address] Patient not seen due to Clinical Appropriateness (per OT no needs--only has facial numbness no mobility limitations--in room indep). Will D/C PT order SIGNATURE: Darrius Gonzalez PT PATIENT NAME: Betsy Mesa DATE: December 10, 2023 TIME: 9:07 AM Normal [facility] THERAPY NT HNO ID: [id number] Author: [place] OTR/Alina Service: Occupational Therapy Author Type: Occupational Therapist Type: Therapy (PT/OT/Speech/Resp) Filed: 12/10/2023 08:42 Note Text: OCCUPATIONAL THERAPY MISSED VISIT SERVICE DATE: 12/10/2023 SERVICE TIME: ROOM: [place] [address] Patient not seen due to (Screened). Spoke with pt, identified no acute OT needs. Pt appears to be at her baseline for mobility and self-care tasks. Pt with family support at home, reports no concerns related to return home. Will sign off at this time. SIGNATURE: KEVIN Mchugh/Alina PATIENT NAME: Betsy Mesa DATE: December 10, 2023 TIME: 8:41 AM Normal [facility] Basic metabolic 2000 panelon 12-09-2023 Anion gap [Moles/Vol] 15 mmol/L Normal 9-18 [facility] Comment on above: Order Comment: Jessica rojo Type: BLOOD SPECIMEN Ordering Facility: [facility] Address: [address] [place] [address] Performed By: #### 1 32239, 32771-7 #### [facility] CLIA [id number] 1 [place] [address] [place] Calcium [Mass/Vol] 9.1 mg/dL Normal 8.5-10.2 [facility] Comment on above: Order Comment: Jessica rojo Type: BLOOD SPECIMEN Ordering Facility: [facility] Address: [address] [place] [address] Performed By: #### 1 2823-9, 81106-6 #### [facility] CLIA [id number] 1 [place] [address] [place] Chloride [Moles/Vol] 105 mmol/L Normal 97-105 [facility] Comment on above: Order Comment: Yuriyi darrel Type: BLOOD SPECIMEN Ordering Facility: [facility] Address: [address] [place] [address] Performed By: #### 1 91239, 70469-6 #### [facility] CLIA [id number] [address] [place] CO2 [Moles/Vol] 22 mmol/L Normal 22-30 [facility] Comment on above: Order Comment: Jessica rojo Type: BLOOD SPECIMEN Ordering Facility: [facility] Address: [address] [place] [address] Performed By: #### 1 9123-9, 64671-1 #### [facility] CLIA [id number] [address] [place] Creatinine [Mass/Vol] 0.76 mg/dL Normal 0.58-0.96 [facility] Comment on above: Order Comment: Speci men Type: BLOOD SPECIMEN Ordering Facility: [facility] Address: [address] [place] [address] Performed By: #### 1 9123-9, 17043-6 #### [facility] CLIA [id number] [address] Creatinine and Glomerular filtration rate.predicted panel (S/P/Bld) 110 mL/min/1.73m??? Normal >=60 [facility] Comment on above: Order Comment: Speci men Type: BLOOD SPECIMEN Ordering Facility: [facility] Address: [address] [place] [address] Result Comment: Sarah mated Glomerular Filtration Rate [...] actual GFR. Performed By: #### 1 9123-9, 90755-7 #### [facility] CLIA [id number] [address] [place] Glucose [Mass/Vol] 110 mg/dL High 74-99 [facility] Comment on above: Order Comment: Speci men Type: BLOOD SPECIMEN Ordering Facility: [facility] Address: [address] [place] [address] Result Comment: The [place] Diabetes Association (ADA) provides guidance for cutoff [...] Standards of Medical Care in Diabetes 2016, [place] Diabetes Association. Diabetes Care. 2016.39(Suppl 1). Performed By: #### 1 9123-9, 57497-9 #### [facility] CLIA [id number] 1 [place] [address] [place] Potassium [Moles/Vol] 3.3 mmol/L Low 3.7-5.1 [facility] Comment on above: Order Comment: Speci men Type: BLOOD SPECIMEN Ordering Facility: [facility] Address: [address] [place] [address] Performed By: #### 1 91, 25078-3 #### [facility] CLIA [id number] [address] [place] [address] [place] Sodium [Moles/Vol] 142 mmol/L Normal 136-144 [facility] Comment on above: Order Comment: Speci men Type: BLOOD SPECIMEN Ordering Facility: [facility] Address: [address] [place] [address] Performed By: #### 1 9123-03, 28680-4 #### [facility] CLIA [id number] 1 [place] [address] [place] Urea nitrogen [Mass/Vol] 8 mg/dL Normal 7-21 [facility] Comment on above: Order Comment: Yuriyi men Type: BLOOD SPECIMEN Ordering Facility: [facility] Address: [address] [place] [address] Performed By: #### 1 91239, 88513-9 #### [facility] CLIA [id number] [address] CBC panel Auto (Bld)on 12-08 Erythrocyte distribution width (RBC) [Ratio] 15.3 % High 11.5-15.0 [facility] Comment on above: Order Comment: Speci men Type: BLOOD SPECIMEN Ordering Facility: [facility] Address: [address] [place] [address] Performed By: #### 5 8410-2 #### [facility] CLIA [id number] [address] Hematocrit (Bld) [Volume fraction] 34.9 % Low 36.0-46.0 [facility] Comment on above: Order Comment: Speci men Type: BLOOD SPECIMEN Ordering Facility: [facility] Address: [address] [place] [address] Performed By: #### 5 8410-2 #### [facility] CLIA [id number] [address] Hemoglobin (Bld) [Mass/Vol] 11.2 g/dL Low 11.5-15.5 [facility] Comment on above: Order Comment: Speci men Type: BLOOD SPECIMEN Ordering Facility: [facility] Address: [address] [place] [address] Performed By: #### 5 8410-2 #### [facility] CLIA [id number] [address] MCH (RBC) [Entitic mass] 27.3 pg Normal 26.0-34.0 [facility] Comment on above: Order Comment: Speci men Type: BLOOD SPECIMEN Ordering Facility: [facility] Address: [address] [place] [address] Performed By: #### 5 8410-2 #### [facility] CLIA [id number] [address] MCHC (RBC) [Mass/Vol] 32.1 g/dL Normal 30.5-36.0 [facility] Comment on above: Order Comment: Speci men Type: BLOOD SPECIMEN Ordering Facility: [facility] Address: [address] [place] [address] Performed By: #### 5 8410-2 #### [facility] CLIA [id number] [address] MCV (RBC) [Entitic vol] 85.1 fL Normal 80.0-100.0 [facility] Comment on above: Order Comment: Speci men Type: BLOOD SPECIMEN Ordering Facility: [facility] Address: [address] [place] [address] Performed By: #### 5 8410-2 #### [facility] CLIA [id number] [address] Nucleated RBC (Bld) [#/Vol] 10*3/uL Normal <0.01 [facility] Comment on above: Order Comment: Speci men Type: BLOOD SPECIMEN Ordering Facility: [facility] Address: [address] [place] [address] Performed By: #### 5 8410-2 #### [facility] CLIA [id number] [address] Platelet mean volume (Bld) [Entitic vol] 11.2 fL Normal 9.0-12.7 [facility] Comment on above: Order Comment: Speci men Type: BLOOD SPECIMEN Ordering Facility: [facility] Address: [address] [place] [address] Performed By: #### 5 8410-2 #### [facility] CLIA [id number] [address] [place] Platelets (Bld) [#/Vol] 212 10*3/uL Normal 150-400 [facility] Comment on above: Order Comment: Speci men Type: BLOOD SPECIMEN Ordering Facility: [facility] Address: [address] [place] [address] Performed By: #### 5 8410-2 #### [facility] CLIA [id number] [address] [place] RBC (Bld) [#/Vol] 4.10 10*6/uL Normal 3.90-5.20 [facility] Comment on above: Order Comment: Jessica rojo Type: BLOOD SPECIMEN Ordering Facility: [facility] Address: [address] [place] [address] Performed By: #### 5 8410-2 #### [facility] CLIA [id number] [address] [place] WBC (Bld) [#/Vol] 7.45 10*3/uL Normal 3.70-11.00 [facility] Comment on above: Order Comment: Yuriyalesia rojo Type: BLOOD SPECIMEN Ordering Facility: [facility] Address: [address] [place] [address] Performed By: #### 5 8410-2 #### [facility] CLIA [id number] [address] BRAIN ATTACK WO IVCONon 0 12-09-2023 CT BRAIN ATTACK WO IVCON * * *Final Report* * * DATE OF EXAM: Dec 09 2023 5:45PM [facility] 0502 - CT BRAIN ATTACK WO IVCON [...] ROC MUNIZ on 12/09/2023 5:51PM . CR_1 Senior Health Educator: RADHA Transcribe Date/Time: Dec 09 2023 6:00P Dictated by : JONATHAN WEISS MD This examination was interpreted and the report reviewed and electronically signed by: JONATHAN WEISS MD on Dec 09 2023 6:11PM EST [id number] CRITICAL!! Invalid Interpretation Code [facility] CTA HEAD W IVCONon 4 CTA HEAD W IVCON * * *Final Report* * * DATE OF EXAM: Dec 09 2023 5:51PM [facility] 0022 - CTA HEAD W IVCON / [...] proximal basilar fenestration, seen best on smaller igjcu-sx-gnzj focused images through the region. The basilar artery is patent and relatively small secondary to large posterior communicating arteries bilaterally. Both posterior cerebral arteries are widely patent. Customer Support Coordinator (topogram) images: No additional findings. IMPRESSION: 1. No evidence of significant carotid or vertebral artery stenosis 2. Proximal basilar fenestration noted 3. No evidence of an acute intracranial large vessel occlusion Arterial blood flow was measured to detect acute large vessel occlusion by computer aided detection software: Not Performed. Concordance between software and imaging review: Not Applicable. Senior Health Educator: RADHA Transcribe Date/Time: Dec 09 2023 6:19P Dictated by : JONATHAN WEISS MD This examination was interpreted and the report reviewed and electronically signed by: JONATHAN WEISS MD on Dec 09 2023 6:32PM EST [id number] Normal [facility] CTA NECK W IVCONon 4 CTA NECK W IVCON * * *Final Report* * * DATE OF EXAM: Dec 09 2023 5:51PM [facility] 0024 - CTA NECK W IVCON / [...] proximal basilar fenestration, seen best on smaller txfut-oe-silh focused images through the region. The basilar artery is patent and relatively small secondary to large posterior communicating arteries bilaterally. Both posterior cerebral arteries are widely patent. Customer Support Coordinator (topogram) images: No additional findings. IMPRESSION: 1. No evidence of significant carotid or vertebral artery stenosis 2. Proximal basilar fenestration noted 3. No evidence of an acute intracranial large vessel occlusion Arterial blood flow was measured to detect acute large vessel occlusion by computer aided detection software: Not Performed. Concordance between software and imaging review: Not Applicable. Senior Health Educator: RADHA Transcribe Date/Time: Dec 09 2023 6:19P Dictated by : JONATHAN WEISS MD This examination was interpreted and the report reviewed and electronically signed by: JONATHAN WEISS MD on Dec 09 2023 6:32PM EST [id number] Normal [facility] ED NOTEon 12-09-2023 ED NOTE HNO ID: [id number] Author: JUAN A FREEMAN RN Service: Emergency Medicine Author Type: Registered Nurse Type: ED Notes Filed: 12/09/2023 22:00 Note Text: Report called to receiving RN on 9100 Normal [facility] ED NOTE HNO ID: [id number] Author: JUAN A FREEMAN, TRUMAN Service: Emergency Medicine Author Type: Registered Nurse Type: ED Notes Filed: 12/09/2023 22:01 Note Text: Performed dysphagia screening on pt, pt passed screening. Pt provided with applesauce and crackers x2. Pt has possessions and call light within reach. Pt updated on status of admit and bed being ready. Pt understanding at this time. Normal [facility] ED NOTE HNO ID: [id number] Author: MAGALIS PIERCE, TRUMAN Service: Emergency Medicine Author Type: Registered Nurse Type: ED Notes Filed: 12/09/2023 17:36 Note Text: Blood sugar 116 Normal [facility] ED NOTE HNO ID: [id number] Author: DOM ALCOCER, TRUMAN Service: ? Author Type: Registered Nurse Type: ED Notes Filed: 12/09/2023 16:54 Note Text: No answer for triage x1 Normal [facility] ED PROV NOTEon 12-09-2023 ED PROV NOTE HNO ID: [id number] Author: ROC MUNIZ MD Service: Emergency Medicine [...] is from kissing. 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 Normal [facility] ED PROV NOTE HNO ID: [id number] Author: ROC MUNIZ MD Service: Emergency Medicine [...] of her upper or lower extremities. Normal bxrsnl-sd-gpie. Visual french normal. Critical Care I spent a total of 40 minutes of critical care time in the evaluation and management of this patient. 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 The patient received Consultation by Stroke neurology during the time that critical care was provided.I discussed the plan of care with the RESIDENT and agree with the findings documented. Critical care time excludes separately billed procedures. MD TOMAS Buenrostro JNO J 12/09/23 2329 Normal [facility] ED Triage Noteon 12-09-2023 ED Triage Note HNO ID: [id number] Author: SHERIN GUERRA APRN.SUPERVISOR STOCK RANCH Service: ? Author Type: Nurse Practitioner Type: [...] encounter. EKG Directly roomed SIGNATURE: Sherin Guerra APRN.SUPERVISOR STOCK RANCH Normal [facility] EKGon 12-09-2023 Electrocardiogram Ventricular Rate : 9 9 BPM Atrial Rate : 99 BPM P-R Interval : 186 ms QRS Duration : 80 ms Q-T Interval : 342 ms QTC Calculation(Bazett) : 438 ms Calculated P [place] : 45 degrees Calculated R [place] : 55 degrees Calculated T [place] : 27 degrees NORMAL SINUS RHYTHM NONSPECIFIC T WAVE ABNORMALITY NO PREVIOUS ECGS AVAILABLE Confirmed by MD MUNIZ JNO ([id number]) on 12/09/2023 6:44:50 PM NAME : BETSY MESA PID : [id number] : 1995 Gender : Female Race : Other ORD : Procedure Date : Dec 09 2023 17:06:20 Edit Date : Dec 09 2023 18:44:54 Diagnosis: NORMAL SINUS RHYTHM NONSPECIFIC T WAVE ABNORMALITY NO PREVIOUS ECGS AVAILABLE Confirmed by MD MUNIZ JNO ([id number]) on 12/09/2023 6:44:50 PM Test Reason : Location : : [facility] Overread By : MD MUNIZ JNO Edited By : MD MUNIZ JNO Referred By : , Acquired by : SONIYA ECHOLS Normal [facility] HIGH SENSITIVITY TROPONIN To n 12-09-2023 Troponin T.cardiac High sensitivity method [Mass/Vol] <6 Normal <12 [facility] Comment on above: Order Comment: Speci men Type: BLOOD SPECIMEN Ordering Facility: [facility] Address: [address] [place] [address] Result Comment: When assessing risk for acute [...] MACE. Performed By: #### H STNT #### [facility] CLIA [id number] [address] [place] Magnesium SerPl-mCncon 12-08 Magnesium [Mass/Vol] 1.9 mg/dL Normal 1.7-2.3 [facility] Comment on above: Order Comment: Jessica rojo Type: BLOOD SPECIMEN Ordering Facility: [facility] Address: [address] [place] [address] Performed By: #### 1 9123-9, 17585-3 #### [facility] CLIA [id number] [address] [place] [address] [place] PT panel Coag (PPP)on 2023 INR Coag (PPP) [Relative time] 1.1 {INR} Normal 0.9-1.3 [facility] Comment on above: Order Comment: Jessica rojo Type: BLOOD SPECIMEN Ordering Facility: [facility] Address: [address] [place] [address] Result Comment: Akosua min K Antagonist (VKA) Therapeutic Range: INR 2 to 3 (Target INR of 2.5) Note: For patients treated with VKA drugs, such as warfarin, the [employer] 2012 Guideline recommends [...] GH, et al. Chest 2012, 141:7S-47S Kim BELL et al. [facility] 2017, 70: 252-289 Performed By: #### 3 4528-0, 23955-0 #### [facility] CLIA [id number] 1 [place], [place] [address] [place] [address] PT Coag (PPP) [Time] 11.4 s Normal 9.7-13.0 [facility] Comment on above: Order Comment: Speci men Type: BLOOD SPECIMEN Ordering Facility: [facility] Address: [address] [place], [place] [address] Performed By: #### 3 4528-0, 53230-0 #### [facility] CLIA [id number] 1 [place], [place] [address] [place] [address] aPTT PPPon 12-09-2023 aPTT Coag (PPP) [Time] 26.9 s Normal 23.0-32.4 [facility] Comment on above: Order Comment: Speci men Type: BLOOD SPECIMEN Ordering Facility: [facility] Address: [address] [place], [place] [address] Performed By: #### 3 4528-0, 87448-8 #### [facility] CLIA [id number] [address] [facility] XR HIP 2-3 VIEWS LEFTon 04-0 XR [...] 12:32:55 PM Ordering Provider: JOSÉ MIGUEL Rosario [facility] ([place]) BASIC METABOLIC PANELon 03-1 Anion gap [Moles/Vol] 8.4 mmol/L Low 11-23 [facility] Comment on above: Performed By: #### D [facility] #### [address] [place] [address] Calcium [Mass/Vol] 8.4 mg/dL Low 8.5-10.1 [facility] Comment on above: Performed By: #### D SANA #### [facility] [address] [place] [address] Chloride [Moles/Vol] 112 mmol/L High 98-107 [facility] Comment on above: Performed By: #### D SANA #### [facility] [address] [place] [address] CO2 [Moles/Vol] 26.0 mmol/L Normal 21-32 [facility] Comment on above: Performed By: #### D SANA #### [facility] [address] [place] [address] Creatinine [Mass/Vol] 0.80 mg/dL Normal 0.55-1.02 [facility] Comment on above: Performed By: #### D SANA #### [facility] [address] [place] [address] GFR > 60.0 [facility] Comment on above: Performed By: #### D SANA #### [address] [place] [address] GFR AM > 60.0 [facility] Comment on above: Result Comment: THE NORMAL LEVEL OF GFR VARIES ACCORDING TO AGE, SEX, AND BODY SIZE. A GFR LEVEL OF LESS THAN 60 ML/MIN REPRESENTS LOSS OF THE ADULT LEVEL OF NORMAL KIDNEY FUNCTION. Performed By: #### D SANA #### [address] [place] [address] Glucose [Mass/Vol] 153 mg/dL High 70-100 [facility] Comment on above: Performed By: #### D SANA #### [facility] [address] [place] [address] Potassium [Moles/Vol] 3.8 mmol/L Normal 3.5-5.1 [facility] Comment on above: Performed By: #### D SANA #### [facility] [address] [place] [address] Sodium [Moles/Vol] 142 mmol/L Normal 136-145 [facility] Comment on above: Performed By: #### D SANA #### [facility] [address] [place] [address] Urea nitrogen [Mass/Vol] 9.0 mg/dL Normal 7-18 [facility] Comment on above: Performed By: #### D SANA #### [address] [address] HCG URINEon 10-15-2023 Beta HCG ( test) Ql (U) Positive [facility] Comment on above: Order Comment: What Is Urine Source? Clean [place]atch [place] Performed By: #### D SNAA #### [address] [address] URINALYSISon 10-15-2023 Color (U) Savita Normal [facility] Comment on above: Order Comment: What Is Urine Source? Clean [place]atch [place] What Is Urine Source? Clean [place]atch [place] Performed By: #### U A, UMIC #### [address] [address] URINE MICROSCOPICon 10-15-19 24 URINE BACTERIA FEW Normal <1+ [facility] Comment on above: Performed By: #### U A, UMIC #### [address] [address] URINE WBC 0-3 Normal 0-3 [facility] Comment on above: Performed By: #### U A, UMIC #### [address] [address] RBC (U) [#/Vol] /uL Normal 0-2 [facility] Comment on above: Performed By: #### U A, UMIC #### [address] [address] UR SQUAM EPITH MODERATE Normal NONE-MANY [facility] Comment on above: Performed By: #### U A, UMIC #### [address] [address] CBC with AUTO DIFFon 024 BAS0 % 0.30 % Normal 0-2 [facility] Comment on above: Performed By: #### C BC #### [address] [address] Basophils (Bld) [#/Vol] 0.0 10*3/uL Normal 0-0.1 [facility] Comment on above: Performed By: #### C BC #### [address] [address] Eosinophils (Bld) [#/Vol] 0.2 10*3/uL Normal 0.0-1.80 [facility] Comment on above: Performed By: #### C BC #### [facility] [address] [place] [address] Eosinophils/100 WBC (Bld) 1.7 % Normal 0-8 [facility] Comment on above: Performed By: #### C BC #### [facility] [address] [place] [address] GRAN # 6.5 K/uL Normal 2.2-9.1 [facility] Comment on above: Performed By: #### C BC #### [facility] [address] [place] [address] GRAN % 69.1 % Normal 42-80 [facility] Comment on above: Performed By: #### C BC #### [facility] [address] [place] [address] Hematocrit (Bld) [Volume fraction] 30.0 % Low 37.0-47.0 [facility] Comment on above: Performed By: #### C BC #### [facility] [address] [place] [address] Hemoglobin (Bld) [Mass/Vol] 10.0 g/dL Low 12.0-16.0 [facility] Comment on above: Performed By: #### C BC #### [facility] [address] [place] [address] Lymphocytes (Bld) [#/Vol] 2.3 10*3/uL Normal 1.0-4.0 [facility] Comment on above: Performed By: #### C BC #### [facility] [address] [place] [address] Lymphocytes/100 WBC (Bld) 24.5 % Normal 16-48 [facility] Comment on above: Performed By: #### C BC #### [facility] [address] [place] [address] MCV (RBC) [Entitic vol] 81.9 fL Normal 80-97 [facility] Comment on above: Performed By: #### C BC #### [facility] [address] [place] [address] MEAN CORPUSCULAR HGB 27.2 pg Normal 26.0-32.0 [facility] Comment on above: Performed By: #### C BC #### [facility] [address] [place] [address] MEAN CORPUSCULAR HGB CONC 33.2 g/dL Normal 31.0-36.0 [facility] Comment on above: Performed By: #### C BC #### [facility] [address] [place] [address] MONO DISTRIB WIDTH 15.47 Normal 0-20 [facility] Comment on above: Result Comment: For ED adult patients suspected of sepsis, MDW<=20.0 does not rule out sepsis or risk of sepsis Performed By: #### C BC #### [facility] [address] [place] [address] Monocytes (Bld) [#/Vol] 0.4 10*3/uL Normal 0.1-1.7 [facility] Comment on above: Performed By: #### C BC #### [facility] [address] [place] [address] Monocytes/100 WBC (Bld) 4.4 % Normal 3-9 [facility] Comment on above: Performed By: #### C BC #### [facility] [address] [place] [address] Platelet mean volume (Bld) [Entitic vol] 8.8 fL Normal 6.6-10.5 [facility] Comment on above: Performed By: #### C BC #### [facility] [address] [place] [address] Platelets (Bld) [#/Vol] 165 10*3/uL Normal 140-450 [facility] Comment on above: Performed By: #### C BC #### [facility] [address] [place] [address] RBC (Bld) [#/Vol] 3.67 10*6/uL Low 4.20-5.50 [facility] Comment on above: Performed By: #### C BC #### [facility] [address] [place] [address] RED CELL DISTRI WIDTH 17.2 % High 11.0-15.5 [facility] Comment on above: Performed By: #### C BC #### [facility] [address] [place] [address] WBC (Bld) [#/Vol] 9.4 10*3/uL Normal 4.0-11.0 [facility] Comment on above: Performed By: #### C BC #### [address] [place] [address] ED.PDOCon 10-14-2023 ED.PDOC BETSY MESA Female [id number] Attending provider: [facility] [id number] Juan Tidwell 1995 DOS: 10/14/23 Hx/Exam - [...] She states she does not have a rn admit, so presents to the emergency department for [...] Psych: Euthymic, with normal affect. : RN coin box inspector present, external genitalia unremarkable. Pelvic exam [...] with Dr. Jacobo who is covering the BUYER ASSISTANT service. Patient arrives after hours, ultrasound considered but unable to be ordered due to lack of coverage, Dr. Jacobo states this can be arranged as an outpatient. She recommends 800 mcg of intravaginal Cytotec with a repeat dose in 24 hours. [facility]. Return indications [...] upon t (more content not included)... Normal [facility] Laboratory studies (set)on 0 10-14-2023 Appearance (U) CLEAR [facility] Bilirubin Ql (U) NEGATIVE [facility] Color (U) [facility] Glucose Ql (U) NEGATIVE [facility] HCG Qn (U) [facility] Ketones Ql (U) NEGATIVE [facility] Leukocyte esterase Test strip Ql (U) NEGATIVE [facility] Nitrite Ql (U) NEGATIVE [facility] pH (U) 8.0 [pH] 5.0-9.0 [facility] Protein Ql (U) NEGATIVE [facility] RBC (U) [#/Vol] High NEGATIVE [facility] RBC LM.HPF (Urine sed) [#/Area] 0-2 [facility] Specific gravity (U) [Rel density] 1.020 1.003-1.035 [facility] Urine Bacteria <1+ [facility] Urine Squamous Epithelial Cells NONE-MANY [facility] Urine WBC 0-3 [facility] Urobilinogen Ql (U) 0.2 E.U./dL <=1.0 [facility] Anion gap [Moles/Vol] 8.4 mmol/L Low 11-23 [facility] Basophils (Bld) [#/Vol] 0.0 10*3/uL 0-0.1 [facility] Basophils/100 WBC (Bld) 0.30 % 0-2 [facility] Calcium [Mass/Vol] 8.4 mg/dL Low 8.5-10.1 [facility] Chloride [Moles/Vol] 112 mmol/L High 98-107 [facility] CO2 [Moles/Vol] 26.0 mmol/L 21-32 [facility] Creatinine [Mass/Vol] 0.80 mg/dL 0.55-1.02 [facility] Eosinophils (Bld) [#/Vol] 0.2 10*3/uL 0.0-1.80 [facility] Eosinophils/100 WBC (Bld) 1.7 % 0-8 [facility] Erythrocyte distribution width (RBC) [Ratio] 17.2 % High 11.0-15.5 [facility] Estimated GFR () [facility] Comment on above: THE NORMAL LEVEL OF GFR VARIES ACCORDING TO AGE, SEX, AND BODY SIZE. A GFR LEVEL OF LESS THAN 60 ML/MIN REPRESENTS LOSS OF THE ADULT LEVEL OF NORMAL KIDNEY FUNCTION. GFR/1.73 sq M.predicted among non-blacks MDRD (S/P/Bld) [Vol rate/Area] [facility] Glucose [Mass/Vol] 153 mg/dL High 70-100 [facility] Granulocytes (Bld) [#/Vol] 6.5 10*3/uL 2.2-9.1 [facility] Granulocytes/100 WBC (Bld) 69.1 % 42-80 [facility] Hematocrit (Bld) [Volume fraction] 30.0 % Low 37.0-47.0 [facility] Hemoglobin (Bld) [Mass/Vol] 10.0 g/dL Low 12.0-16.0 [facility] Lymphocytes (Bld) [#/Vol] 2.3 10*3/uL 1.0-4.0 [facility] Lymphocytes/100 WBC (Bld) 24.5 % 16-48 [facility] MCH (RBC) [Entitic mass] 27.2 pg 26.0-32.0 [facility] MCHC (RBC) [Mass/Vol] 33.2 g/dL 31.0-36.0 [facility] MCV (RBC) [Entitic vol] 81.9 fL 80-97 [facility] Monocyte distribution width Auto (Bld) [Entitic vol] 15.47 0-20 [facility] Comment on above: For ED adult patient s suspected of sepsis, MDW<=20.0 does not rule out sepsis or risk of sepsis Monocytes (Bld) [#/Vol] 0.4 10*3/uL 0.1-1.7 [facility] Monocytes/100 WBC (Bld) 4.4 % 3-9 [facility] Platelet mean volume (Bld) [Entitic vol] 8.8 fL 6.6-10.5 [facility] Platelets (Bld) [#/Vol] 165 10*3/uL 140-450 [facility] Potassium [Moles/Vol] 3.8 mmol/L 3.5-5.1 All [facility] RBC (Bld) [#/Vol] 3.67 10*6/uL Low 4.20-5.50 [facility] Sodium [Moles/Vol] 142 mmol/L 136-145 [facility] Urea nitrogen [Mass/Vol] 9.0 mg/dL 7-18 [facility] WBC (Bld) [#/Vol] 9.4 10*3/uL 4.0-11.0 [facility] URINALYSISon 10-14-2023 Appearance (U) Clear Normal CLEAR [facility] Comment on above: Order Comment: What Is Urine Source? [place] What Is Urine Source? [place] Performed By: #### U A, UMIC #### [address] [address] Hemoglobin Ql (U) 3+ Abnormal NEGATIVE [facility] Comment on above: Order Comment: What Is Urine Source? [place] What Is Urine Source? [place] Performed By: #### U A, UMIC #### [address] [address] pH (U) 8.0 [pH] Normal 5.0-9.0 [facility] Comment on above: Order Comment: What Is Urine Source? [place] What Is Urine Source? [place] Performed By: #### U A, UMIC #### [address] [address] URINE BILIRUBIN - DIPSTICK Negative Normal NEGATIVE [facility] Comment on above: Order Comment: What Is Urine Source? [place] What Is Urine Source? [place] Performed By: #### U A, UMIC #### [address] [address] URINE GLUCOSE -DIPSTICK Negative Normal NEGATIVE [facility] Comment on above: Order Comment: What Is Urine Source? [place] What Is Urine Source? [place] Performed By: #### U A, UMIC #### [address] [address] URINE KETONE Negative Normal NEGATIVE [facility] Comment on above: Order Comment: What Is Urine Source? [place] What Is Urine Source? [place] Performed By: #### U A, UMIC #### [address] [address] URINE LEUK ESTERASE Negative Normal NEGATIVE [facility] Comment on above: Order Comment: What Is Urine Source? [place] What Is Urine Source? [place] Performed By: #### U A, UMIC #### [address] [address] URINE NITRITE - DIPSTICK Negative Normal NEGATIVE [facility] Comment on above: Order Comment: What Is Urine Source? [place] What Is Urine Source? [place] Performed By: #### U A, UMIC #### [address] [address] URINE PROTEIN - DIPSTICK Negative Normal NEGATIVE [facility] Comment on above: Order Comment: What Is Urine Source? [place] What Is Urine Source? [place] Performed By: #### U A, UMIC #### [address] [address] URINE SPEC GRAVITY, DIPSTICK 1.020 Normal 1.003-1.035 [facility] Comment on above: Order Comment: What Is Urine Source? [place] What Is Urine Source? [place] Performed By: #### U A UMIC #### [address] [address] URINE UROBILINOGEN - DIPSTICK 0.2 E.U./dL Normal <=1.0 [facility] Comment on above: Order Comment: What Is Urine Source? [place] What Is Urine Source? [place] Performed By: #### U A, UMIC #### [address] [address] ACETONEon 08-11-2023 ACETONE Negative [facility] Comment on above: Performed By: #### M N, GEOVANNY, ACTN #### [address] [address] CBC with AUTO DIFFon 024 BAS0 % 0.90 % Normal 0-2 [facility] Comment on above: Performed By: #### C BC #### [address] [address] Basophils (Bld) [#/Vol] 0.1 10*3/uL Normal 0-0.1 [facility] Comment on above: Performed By: #### C BC #### [address] [address] Eosinophils (Bld) [#/Vol] 0.2 10*3/uL Normal 0.0-1.80 [facility] Comment on above: Performed By: #### C BC #### [facility] [address] [place] [address] Eosinophils/100 WBC (Bld) 3.2 % Normal 0-8 [facility] Comment on above: Performed By: #### C BC #### [facility] [address] [place] [address] GRAN # 3.8 K/uL Normal 2.2-9.1 [facility] Comment on above: Performed By: #### C BC #### [facility] [address] [place] [address] GRAN % 51.1 % Normal 42-80 [facility] Comment on above: Performed By: #### C BC #### [facility] [address] [place] [address] Hematocrit (Bld) [Volume fraction] 31.4 % Low 37.0-47.0 [facility] Comment on above: Performed By: #### C BC #### [facility] [address] [place] [address] Hemoglobin (Bld) [Mass/Vol] 10.1 g/dL Low 12.0-16.0 [facility] Comment on above: Performed By: #### C BC #### [facility] [address] [place] [address] Lymphocytes (Bld) [#/Vol] 2.9 10*3/uL Normal 1.0-4.0 [facility] Comment on above: Performed By: #### C BC #### [facility] [address] [place] [address] Lymphocytes/100 WBC (Bld) 38.9 % Normal 16-48 [facility] Comment on above: Performed By: #### C BC #### [facility] [address] [place] [address] MCV (RBC) [Entitic vol] 80.0 fL Normal 80-97 [facility] Comment on above: Performed By: #### C BC #### [facility] [address] [place] [address] MEAN CORPUSCULAR HGB 25.8 pg Low 26.0-32.0 [facility] Comment on above: Performed By: #### C BC #### [facility] [address] [place] [address] MEAN CORPUSCULAR HGB CONC 32.3 g/dL Normal 31.0-36.0 [facility] Comment on above: Performed By: #### C BC #### [facility] [address] [place] [address] MONO DISTRIB WIDTH 15.35 Normal 0-20 [facility] Comment on above: Result Comment: For ED adult patients suspected of sepsis, MDW<=20.0 does not rule out sepsis or risk of sepsis Performed By: #### C BC #### [facility] [address] [place] [address] Monocytes (Bld) [#/Vol] 0.4 10*3/uL Normal 0.1-1.7 [facility] Comment on above: Performed By: #### C BC #### [facility] [address] [place] [address] Monocytes/100 WBC (Bld) 5.9 % Normal 3-9 [facility] Comment on above: Performed By: #### C BC #### [facility] [address] [place] [address] Platelet mean volume (Bld) [Entitic vol] 8.7 fL Normal 6.6-10.5 [facility] Comment on above: Performed By: #### C BC #### [facility] [address] [place] [address] Platelets (Bld) [#/Vol] 185 10*3/uL Normal 140-450 [facility] Comment on above: Performed By: #### C BC #### [address] [place] [address] RBC (Bld) [#/Vol] 3.93 10*6/uL Low 4.20-5.50 [facility] Comment on above: Performed By: #### C BC #### [facility] [address] [place] [address] RED CELL DISTRI WIDTH 17.5 % High 11.0-15.5 [facility] Comment on above: Performed By: #### C BC #### [facility] [address] [place] [address] WBC (Bld) [#/Vol] 7.4 10*3/uL Normal 4.0-11.0 [facility] Comment on above: Performed By: #### C BC #### [facility] [address] [place] [address] COMPREHENSIVE METABOLIC PANE Sarath 08-11-2023 Albumin [Mass/Vol] 3.6 g/dL Normal 3.4-5.0 [facility] Comment on above: Performed By: #### M GEOVANNY Johnson, ACTN #### [facility] [address] [place] [address] Albumin/Globulin [Mass ratio] 0.9 {ratio} Low 1.1-1.8 [facility] Comment on above: Performed By: #### GEOVANNY Soto, ACTN #### [facility] [address] [place] [address] ALP [Catalytic activity/Vol] 73 U/L Normal 45-117 [facility] Comment on above: Performed By: #### GEOVANNY Soto ACTN #### [facility] [address] [place] [address] ALT [Catalytic activity/Vol] 17 U/L Normal 12-78 [facility] Comment on above: Performed By: #### GEOVANNY Soto, ACTN #### [facility] [address] [place] [address] Anion gap [Moles/Vol] 9.2 mmol/L Low 11-23 [facility] Comment on above: Performed By: #### GEOVANNY Soto, ACTN #### [facility] [address] [place] [address] AST [Catalytic activity/Vol] 9 U/L Low 15-37 [facility] Comment on above: Performed By: #### M GEOVANNY Johnson, ACTN #### [facility] [address] [place] [address] Bilirubin [Mass/Vol] 0.3 mg/dL Normal 0.2-1.0 [facility] Comment on above: Performed By: #### M GEOVANNY Johnson, ACTN #### [facility] [address] [place] [address] Calcium [Mass/Vol] 8.4 mg/dL Low 8.5-10.1 [facility] Comment on above: Performed By: #### M GEOVANNY Johnson, ACTN #### [facility] [address] [place] [address] Chloride [Moles/Vol] 108 mmol/L High 98-107 [facility] Comment on above: Performed By: #### M GEOVANNY Johnson, ACTN #### [facility] [address] [place] [address] CO2 [Moles/Vol] 23.0 mmol/L Normal 21-32 [facility] Comment on above: Performed By: #### M GEOVANNY Johnson, ACTN #### [facility] [address] [place] [address] Creatinine [Mass/Vol] 0.70 mg/dL Normal 0.55-1.02 [facility] Comment on above: Performed By: #### M GEOVANNY Johnson, ACTN #### [address] [place] [address] GFR > 60.0 [facility] Comment on above: Performed By: #### M GEOVANNY Johnson ACTN #### [address] [place] [address] GFR AM > 60.0 [facility] Comment on above: Result Comment: THE NORMAL LEVEL OF GFR VARIES ACCORDING TO AGE, SEX, AND BODY SIZE. A GFR LEVEL OF LESS THAN 60 ML/MIN REPRESENTS LOSS OF THE ADULT LEVEL OF NORMAL KIDNEY FUNCTION. Performed By: #### M GEOVANNY Johnson, ACTN #### [address] [place] [address] Globulin (S) [Mass/Vol] 3.8 g/dL Normal 2.5-4.6 [facility] Comment on above: Performed By: #### M GEOVANNY Johnson ACTN #### [address] [place] [address] Glucose [Mass/Vol] 120 mg/dL High 70-100 [facility] Comment on above: Performed By: #### M GEOVANNY Johnson, ACTN #### [address] [place] [address] Potassium [Moles/Vol] 3.8 mmol/L Normal 3.5-5.1 [facility] Comment on above: Performed By: #### M GEOVANNY Johnson ACTN #### [address] [place] [address] Protein [Mass/Vol] 7.3 g/dL Normal 6.0-8.3 [facility] Comment on above: Performed By: #### M GEOVANNY Johnson, ACTN #### [address] [place] [address] Sodium [Moles/Vol] 136 mmol/L Normal 136-145 [facility] Comment on above: Performed By: #### M GEOVANNY Johnson ACTN #### [facility] [address] [place] [address] Urea nitrogen [Mass/Vol] 7.0 mg/dL Normal 7-18 [facility] Comment on above: Performed By: #### M GEOVANNY Johnson, ACTN #### [facility] [address] [place] [address] ED.PDOCon 08-11-2023 ED.PDOC BETSY MESA Female [id number] Attending provider: [facility] [id number] Vern Henry 1995 28 DOS: 08/11/23 Hx/Exam [...] note is completed with assistance of the [employer] dictation program. While every attempt has been [...] BID #[id number] Transmission Status: Pending to [employer] #[id number] Referrals: Alex Avila [ACTIVE] - 2-3 Days Dictated By: Vern Henry MD Dictated Date/Time:08/11/23 1120 Electronically Signed Date/Time: 08/11/23 (more content not included)... Normal [facility] HCG URINEon 08-11-2023 Beta HCG ( test) Ql (U) Negative Normal [facility] Comment on above: Order Comment: What Is Urine Source? Clean Catch Mid Stream Performed By: #### D SANA #### [facility] [address] [place] [address] Laboratory studies (set)on 0 08-11-2023 Acetone Level [facility] Albumin [Mass/Vol] 3.6 g/dL 3.4-5.0 [facility] Albumin/Globulin [Mass ratio] 0.9 {ratio} Low 1.1-1.8 [facility] ALP [Catalytic activity/Vol] 73 U/L 45-117 [facility] ALT [Catalytic activity/Vol] 17 U/L 12-78 [facility] Anion gap [Moles/Vol] 9.2 mmol/L Low 11-23 [facility] Appearance (U) CLEAR [facility] AST [Catalytic activity/Vol] 9 U/L Low 15-37 [facility] Basophils (Bld) [#/Vol] 0.1 10*3/uL 0-0.1 [facility] Basophils/100 WBC (Bld) 0.90 % 0-2 [facility] Bilirubin [Mass/Vol] 0.3 mg/dL 0.2-1.0 [facility] Bilirubin Ql (U) NEGATIVE [facility] Calcium [Mass/Vol] 8.4 mg/dL Low 8.5-10.1 [facility] Chloride [Moles/Vol] 108 mmol/L High 98-107 [facility] CO2 [Moles/Vol] 23.0 mmol/L 21-32 [facility] Color (U) [facility] Creatinine [Mass/Vol] 0.70 mg/dL 0.55-1.02 [facility] Eosinophils (Bld) [#/Vol] 0.2 10*3/uL 0.0-1.80 [facility] Eosinophils/100 WBC (Bld) 3.2 % 0-8 [facility] Erythrocyte distribution width (RBC) [Ratio] 17.5 % High 11.0-15.5 [facility] Estimated GFR () [facility] Comment on above: THE NORMAL LEVEL OF GFR VARIES ACCORDING TO AGE, SEX, AND BODY SIZE. A GFR LEVEL OF LESS THAN 60 ML/MIN REPRESENTS LOSS OF THE ADULT LEVEL OF NORMAL KIDNEY FUNCTION. GFR/1.73 sq M.predicted among non-blacks MDRD (S/P/Bld) [Vol rate/Area] [facility] Globulin (S) [Mass/Vol] 3.8 g/dL 2.5-4.6 [facility] Glucose [Mass/Vol] 120 mg/dL High 70-100 [facility] Glucose Ql (U) NEGATIVE [facility] Granulocytes (Bld) [#/Vol] 3.8 10*3/uL 2.2-9.1 [facility] Granulocytes/100 WBC (Bld) 51.1 % 42-80 [facility] HCG Qn (U) [facility] Hematocrit (Bld) [Volume fraction] 31.4 % Low 37.0-47.0 [facility] Hemoglobin (Bld) [Mass/Vol] 10.1 g/dL Low 12.0-16.0 [facility] Ketones Ql (U) NEGATIVE [facility] Leukocyte esterase Test strip Ql (U) High NEGATIVE [facility] Lymphocytes (Bld) [#/Vol] 2.9 10*3/uL 1.0-4.0 [facility] Lymphocytes/100 WBC (Bld) 38.9 % 16-48 [facility] MCH (RBC) [Entitic mass] 25.8 pg Low 26.0-32.0 [facility] MCHC (RBC) [Mass/Vol] 32.3 g/dL 31.0-36.0 [facility] MCV (RBC) [Entitic vol] 80.0 fL 80-97 [facility] Monocyte distribution width Auto (Bld) [Entitic vol] 15.35 0-20 [facility] Comment on above: For ED adult patient s suspected of sepsis, MDW<=20.0 does not rule out sepsis or risk of sepsis Monocytes (Bld) [#/Vol] 0.4 10*3/uL 0.1-1.7 [facility] Monocytes/100 WBC (Bld) 5.9 % 3-9 [facility] Nitrite Ql (U) NEGATIVE [facility] pH (U) 6.0 [pH] 5.0-9.0 [facility] Platelet mean volume (Bld) [Entitic vol] 8.7 fL 6.6-10.5 [facility] Platelets (Bld) [#/Vol] 185 10*3/uL 140-450 [facility] Potassium [Moles/Vol] 3.8 mmol/L 3.5-5.1 [facility] Protein [Mass/Vol] 7.3 g/dL 6.0-8.3 [facility] Protein Ql (U) NEGATIVE [facility] RBC (Bld) [#/Vol] 3.93 10*6/uL Low 4.20-5.50 [facility] RBC (U[facility] [#/Vol] NEGATIVE [facility] RBC LM.HPF (Urine sed) [#/Area] 0-2 [facility] Sodium [Moles/Vol] 136 mmol/L 136-145 [facility] Specific gravity (U) [Rel density] 1.015 1.003-1.035 [facility] Troponin 3.4 pg/mL 0-53.7 [facility] Comment on above: Troponin Reference R flip: Male: 0-78.5 pg/mL (ng/L) Female: 0-53.7 pg/mL (ng/L) Note: The new high sensitivity Troponin units are in pg/mL (ng/L) Urea nitrogen [Mass/Vol] 7.0 mg/dL 7-18 [facility] Urine Bacteria <1+ [facility] Urine Squamous Epithelial Cells NONE-MANY [facility] Urine WBC 0-3 [facility] Urobilinogen Ql (U) 0.2 E.U./dL <=1.0 [facility] WBC (Bld) [#/Vol] 7.4 10*3/uL 4.0-11.0 [facility] TROPONINon 08-11-2023 TROPONIN 3.4 pg/mL Normal 0-53.7 [facility] Comment on above: Result Comment: Trop onin Reference Range: Male: 0-78.5 pg/mL (ng/L) Female: 0-53.7 pg/mL (ng/L) Note: The new high sensitivity Troponin units are in pg/mL (ng/L) Performed By: #### M N, TRO, ACTN #### [address] [address] URINALYSIS W/ C S IF INDICAT EDon 08-11-2023 Appearance (U) Clear Normal CLEAR [facility] Comment on above: Order Comment: What Is Urine Source? Clean Catch Mid StreamWhat Is Urine Source? Clean Catch [place] Performed By: #### D SANA #### [address] [address] Color (U) Lt. Yellow Normal [facility] Comment on above: Order Comment: What Is Urine Source? Clean Catch Mid StreamWhat Is Urine Source? [place] Performed By: #### D SANA #### [address] [address] Hemoglobin Ql (U) Negative Normal NEGATIVE [facility] Comment on above: Order Comment: What Is Urine Source? Clean Catch Mid StreamWhat Is Urine Source? [place] Performed By: #### D SANA #### [address] [address] pH (U) 6.0 [pH] Normal 5.0-9.0 [facility] Comment on above: Order Comment: What Is Urine Source? Clean Catch Mid StreamWhat Is Urine Source? [place] Performed By: #### D SANA #### [address] [address] URINE BILIRUBIN - DIPSTICK Negative Normal NEGATIVE [facility] Comment on above: Order Comment: What Is Urine Source? Clean Catch Mid StreamWhat Is Urine Source? [place] Performed By: #### D SANA #### [address] [address] URINE GLUCOSE - DIPSTICK Negative Normal NEGATIVE [facility] Comment on above: Order Comment: What Is Urine Source? Clean Catch Mid StreamWhat Is Urine Source? [place] Performed By: #### D SANA #### [address] [address] URINE KETONE Negative Normal NEGATIVE [facility] Comment on above: Order Comment: What Is Urine Source? Clean Catch Mid StreamWhat Is Urine Source? [place] Performed By: #### D SANA #### [address] [address] URINE LEUK ESTERASE 1+ Abnormal NEGATIVE [facility] Comment on above: Order Comment: What Is Urine Source? Clean Catch Mid StreamWhat Is Urine Source? [place] Performed By: #### D SANA #### [address] [address] URINE NITRITE - DIPSTICK Negative Normal NEGATIVE [facility] Comment on above: Order Comment: What Is Urine Source? Clean Catch Mid StreamWhat Is Urine Source? [place] Performed By: #### D SANA #### [address] [address] URINE PROTEIN - DIPSTICK Negative Normal NEGATIVE [facility] Comment on above: Order Comment: What Is Urine Source? Clean Catch Mid StreamWhat Is Urine Source? [place] Performed By: #### D SANA #### [address] [address] URINE SPEC GRAVITY, DIPSTICK 1.015 Normal 1.003-1.035 [facility] Comment on above: Order Comment: What Is Urine Source? Clean Catch Mid StreamWhat Is Urine Source? [place] Performed By: #### D SANA #### [address] [place] [address] URINE UROBILINOGEN - DIPSTICK 0.2 E.U./dL Normal <=1.0 [facility] Comment on above: Order Comment: What Is Urine Source? Clean Catch Mid StreamWhat Is Urine Source? [place] Performed By: #### D SANA #### [facility] [address] [place] [address] URINE MICROSCOPICon 08-11-19 24 UR SQUAM EPITH MANY Normal NONE-MANY [facility] Comment on above: Performed By: #### D SANA #### [facility] [address] [place] [address] URINE BACTERIA FEW Normal <1+ [facility] Comment on above: Performed By: #### D SANA #### [facility] [address] [place] [address] URINE RBC 0-2 Normal 0-2 [facility] Comment on above: Performed By: #### D SANA #### [facility] [address] [place] [address] URINE WBC 3-5 Normal 0-3 [facility] Comment on above: Performed By: #### D SANA #### [facility] [address] [place] [address] ED.PDOCon 05-12-2023 ED.PDOC BETSY MESA Female [id number] Attending provider: [facility] [id number] Jeremy Lim 1995 28 DOS: 05/12/23 Hx/Exam [...] normal strength, no pronator drift, speech clear/fluent, joint cutter machine II-XII intact, no ataxia on FNF, ataxic [...] cloudy H Urine pH 6.0 Ur Specific [place] 1.025 Urine Protein Negative Urine Ketones Negative [...] note is completed with assistance of the [employer] dictation program. While every attempt has been [...] tab PRN Reason: Transmission Status: Received by [employer] #[id number] Ondansetron [Zofran Odt] 4 mg PO Q6HR PRN 5 Days #20 tab PRN Reason: Transmission Status: Received by [employer] #[id number] Referrals: Call,On [Primary Care Provider] - Celso Mitchell [ACTIVE] - 3-5 Days (as needed) Dictated By: Jeremy Lim MD Dictated Date/Time:05/12/23210 Electronically Signed Date/Time: 05/14/23 0549 [facility] HEAD W/O CONTRASTon 05-12-20 HEAD W/O CONTRAST BETSY MESA Female [id number] Ordering physician: Jeremy Lim LOC:ER [id number] Attending physician: 1995 28 DO S: 05/12/23 Acc#: [id number] Exam/Proc: HEAD W/O CONTRAST Dept: COMPUTED TOMOGRAPHY [...] FILE Electronically Signed Date/Time: 05/12/23300 Dictated Date/time: 05/12/23257 CC: Normal [facility] Laboratory studies (set)on Appearance (U) High CLEAR [facility] Bilirubin Ql (U) NEGATIVE [facility] Color (U) [facility] Glucose Ql (U) NEGATIVE [facility] Hemoglobin Ql (U) NEGATIVE [facility] Ketones Ql (U) [facility] Leukocyte esterase Test strip Ql (U) High NEGATIVE [facility] Mucus Ql (Urine sed) <1+ [facility] ance Nitrite Ql (U) NEGATIVE [facility] pH (U) 6.0 [pH] 5.0-9.0 [facility] Protein Ql (U) NEGATIVE [facility] RBC LM.HPF (Urine sed) [#/Area] 0-2 [facility] Specific gravity (U) [Rel density] 1.025 1.003-1.035 [facility] Urine Bacteria <1+ [facility] Comment on above: Culture Pending Urine Squamous Epithelial Cells NONE-MANY [facility] Urine WBC 0-3 [facility] Comment on above: Culture Pending Urobilinogen Ql (U) 0.2 E.U./dL <=1.0 [facility] URINALYSIS W/ C S IF INDICAT EDon 05-12-2023 Appearance (U) Sl Cloudy Abnormal CLEAR [facility] Comment on above: Order Comment: What Is Urine Source? RandomWhat Is Urine Source? Random Performed By: #### D SANA #### [address] [address] Other Comment: Cultu re PendingCulture Pending Color (U) Lt. Yellow Normal [facility] Comment on above: Order Comment: What Is Urine Source? RandomWhat Is Urine Source? Random Performed By: #### D SANA #### [address] [address] Other Comment: Cultu re PendingCulture Pending Hemoglobin Ql (U) Negative Normal NEGATIVE [facility] Comment on above: Order Comment: What Is Urine Source? RandomWhat Is Urine Source? Random Performed By: #### D SANA #### [address] [address] Other Comment: Cultu re PendingCulture Pending pH (U) 6.0 [pH] Normal 5.0-9.0 [facility] Comment on above: Order Comment: What Is Urine Source? RandomWhat Is Urine Source? Random Performed By: #### D SANA #### [address] [address] Other Comment: Cultu re PendingCulture Pending URINE BILIRUBIN - DIPSTICK Negative Normal NEGATIVE [facility] Comment on above: Order Comment: What Is Urine Source? RandomWhat Is Urine Source? Random Performed By: #### D SANA #### [address] [address] Other Comment: Cultu re PendingCulture Pending URINE GLUCOSE - DIPSTICK Negative Normal NEGATIVE [facility] Comment on above: Order Comment: What Is Urine Source? RandomWhat Is Urine Source? Random Performed By: #### D SANA #### [address] [address] Other Comment: Cultu re PendingCulture Pending URINE KETONE Negative Normal NEGATIVE [facility] Comment on above: Order Comment: What Is Urine Source? RandomWhat Is Urine Source? Random Performed By: #### D SANA #### [address] [address] Other Comment: Cultu re PendingCulture Pending URINE LEUK ESTERASE 3+ Abnormal NEGATIVE [facility] Comment on above: Order Comment: What Is Urine Source? RandomWhat Is Urine Source? Random Performed By: #### D SANA #### [address] [address] Other Comment: Cultu re PendingCulture Pending URINE NITRITE - DIPSTICK Negative Normal NEGATIVE [facility] Comment on above: Order Comment: What Is Urine Source? RandomWhat Is Urine Source? Random Performed By: #### D SANA #### [address] [address] Other Comment: Cultu re PendingCulture Pending URINE PROTEIN - DIPSTICK Negative Normal NEGATIVE [facility] Comment on above: Order Comment: What Is Urine Source? RandomWhat Is Urine Source? Random Performed By: #### D SANA #### [address] [address] Other Comment: Cultu re PendingCulture Pending URINE SPEC GRAVITY, DIPSTICK 1.025 Normal 1.003-1.035 [facility] Comment on above: Order Comment: What Is Urine Source? RandomWhat Is Urine Source? Random Performed By: #### D SANA #### [address] [address] Other Comment: Cultu re PendingCulture Pending URINE UROBILINOGEN - DIPSTICK 0.2 E.U./dL Normal <=1.0 [facility] Comment on above: Order Comment: What Is Urine Source? RandomWhat Is Urine Source? Random Performed By: #### D SANA #### [address] [address] Other Comment: Cultu re PendingCulture Pending URINE MICROSCOPICon 05-12-20 23 Mucus Ql (Urine sed) SL AMT Normal <1+ [facility] Comment on above: Performed By: #### D SANA #### [facility] [address] [place] [address] Other Comment: Cultu re PendingCulture Pending UR SQUAM EPITH MANY Normal NONE-MANY [facility] Comment on above: Performed By: #### D SANA #### [facility] [address] [place] [address] Other Comment: Cultu re PendingCulture Pending URINE BACTERIA 1+ Normal <1+ [facility] Comment on above: Performed By: #### D SANA #### [facility] [address] [place] [address] Other Comment: Cultu re PendingCulture Pending URINE RBC NONE SEEN Normal 0-2 [facility] Comment on above: Performed By: #### D SANA #### [address] [address] Other Comment: Cultu re PendingCulture Pending URINE WBC 30-40 Normal 0-3 [facility] Comment on above: Performed By: #### D SANA #### [address] [address] Other Comment: Cultu re PendingCulture Pending BASIC METABOLIC PANELon - Anion gap [Moles/Vol] 10.0 mmol/L Low 11-23 [facility] Comment on above: Performed By: #### B MP #### [facility] [address] [place] [address] Calcium [Mass/Vol] 8.5 mg/dL Normal 8.5-10.1 [facility] Comment on above: Performed By: #### B MP #### [facility] [address] [place] [address] Chloride [Moles/Vol] 111 mmol/L High 98-107 [facility] Comment on above: Performed By: #### B MP #### [facility] [address] [place] [address] CO2 [Moles/Vol] 24.0 mmol/L Normal 21-32 [facility] Comment on above: Performed By: #### B MP #### [address] [address] Creatinine [Mass/Vol] 0.70 mg/dL Normal 0.55-1.02 [facility] Comment on above: Performed By: #### B MP #### [facility] [address] [place] [address] GFR > 60.0 [facility] Comment on above: Performed By: #### B MP #### [address] [address] GFR AM > 60.0 [facility] Comment on above: Result Comment: THE NORMAL LEVEL OF GFR VARIES ACCORDING TO AGE, SEX, AND BODY SIZE. A GFR LEVEL OF LESS THAN 60 ML/MIN REPRESENTS LOSS OF THE ADULT LEVEL OF NORMAL KIDNEY FUNCTION. Performed By: #### B MP #### [address] [address] Glucose [Mass/Vol] 120 mg/dL High 70-100 [facility] Comment on above: Performed By: #### B MP #### [address] [address] Potassium [Moles/Vol] 3.6 mmol/L Normal 3.5-5.1 [facility] Comment on above: Performed By: #### B MP #### [address] [address] Sodium [Moles/Vol] 142 mmol/L Normal 136-145 [facility] Comment on above: Performed By: #### B MP #### [address] [address] Urea nitrogen [Mass/Vol] 10.0 mg/dL Normal 7-18 [facility] Comment on above: Performed By: #### B MP #### [address] [address] CBC with AUTO DIFFon 07-18-2 023 BAS0 % 0.40 % Normal 0-2 [facility] Comment on above: Performed By: #### C BC #### [facility] [address] [place] [address] Basophils (Bld) [#/Vol] 0.0 10*3/uL Normal 0-0.1 [facility] Comment on above: Performed By: #### C BC #### [address] [address] Eosinophils (Bld) [#/Vol] 0.2 10*3/uL Normal 0.0-1.80 [facility] Comment on above: Performed By: #### C BC #### [facility] [address] [place] [address] Eosinophils/100 WBC (Bld) 2.8 % Normal 0-8 [facility] Comment on above: Performed By: #### C BC #### [facility] [address] [place] [address] GRAN # 3.9 K/uL Normal 2.2-9.1 [facility] Comment on above: Performed By: #### C BC #### [address] [place] [address] GRAN % 53.4 % Normal 42-80 [facility] Comment on above: Performed By: #### C BC #### [facility] [address] [place] [address] Hematocrit (Bld) [Volume fraction] 32.7 % Low 37.0-47.0 [facility] Comment on above: Performed By: #### C BC #### [facility] [address] [place] [address] Hemoglobin (Bld) [Mass/Vol] 10.8 g/dL Low 12.0-16.0 [facility] Comment on above: Performed By: #### C BC #### [address] [place] [address] Lymphocytes (Bld) [#/Vol] 2.6 10*3/uL Normal 1.0-4.0 [facility] Comment on above: Performed By: #### C BC #### [address] [place] [address] Lymphocytes/100 WBC (Bld) 36.3 % Normal 16-48 [facility] Comment on above: Performed By: #### C BC #### [facility] [address] [place] [address] MCV (RBC) [Entitic vol] 79.5 fL Low 80-97 [facility] Comment on above: Performed By: #### C BC #### [address] [place] [address] MEAN CORPUSCULAR HGB 26.1 pg Normal 26.0-32.0 [facility] Comment on above: Performed By: #### C BC #### [address] [place] [address] MEAN CORPUSCULAR HGB CONC 32.9 g/dL Normal 31.0-36.0 [facility] Comment on above: Performed By: #### C BC #### [facility] [address] [place] [address] MONO DISTRIB WIDTH 15.75 Normal 0-20 [facility] Comment on above: Result Comment: For ED adult patients suspected of sepsis, MDW<=20.0 does not rule out sepsis or risk of sepsis Performed By: #### C BC #### [facility] [address] [place] [address] Monocytes (Bld) [#/Vol] 0.5 10*3/uL Normal 0.1-1.7 [facility] Comment on above: Performed By: #### C BC #### [facility] [address] [place] [address] Monocytes/100 WBC (Bld) 7.1 % Normal 3-9 [facility] Comment on above: Performed By: #### C BC #### [facility] [address] [place] [address] Platelet mean volume (Bld) [Entitic vol] 9.8 fL Normal 6.6-10.5 [facility] Comment on above: Performed By: #### C BC #### [facility] [address] [place] [address] Platelets (Bld) [#/Vol] 165 10*3/uL Normal 140-450 [facility] Comment on above: Performed By: #### C BC #### [facility] [address] [place] [address] RBC (Bld) [#/Vol] 4.12 10*6/uL Low 4.20-5.50 [facility] Comment on above: Performed By: #### C BC #### [facility] [address] [place] [address] RED CELL DISTRI WIDTH 17.7 % High 11.0-15.5 [facility] Comment on above: Performed By: #### C BC #### [address] [place] [address] WBC (Bld) [#/Vol] 7.3 10*3/uL Normal 4.0-11.0 [facility] Comment on above: Performed By: #### C #### [address] [address] CHEST-2 VIEWon 02-13-2023 CHEST-2 VIEW BETSY MESA Female [id number] Ordering physician: Leandra Keller LOC:ER [id number] Attending physician: 1995 DO S: 02/13/23 Acc#: [id number] Exam/Proc: CHEST-2 VIEW Dept: RADIOLOGY EXAMINATION: Exam [...] 02/13/2023 6:55:15 AM EST Workstation ID : [id number] REPORT SIGNATURE ON FILE Electronically Signed Date/Time: 02/13/23 0655 Dictated Date/time: 02/13/23 0652 CC: Normal [facility] D-DIMERon 02-13-2023 D-DIMER 0.48 mg/L FEU Normal 0.0-0.59 [facility] Comment on above: Result Comment: The cut-off [...] therapy. Performed By: #### D SANA #### [place] [address] [address] ED.PDOCon 02-13-2023 ED.PDOC BETSY MESA Female [id number] Attending provider: SAHNT HUTCHINSON [id number] Leandra Keller 1995 27 DOS: 02/13/23 Case [...] MD. Dictated Date/Time:02/13/23 0549 Electronically Signed Date/Time: 02/13/2314 [facility] LOWER EXT DVT RIGHTon 2022 LOWER EXT DVT RIGHT BETSY MESA Female [id number] Ordering physician: Leandra Keller LOC:ER [id number] Attending physician: 1995 DO S: 02/13/23 Acc#: [id number] Exam/Proc: LOWER EXT DVT RIGHT Dept: ULTRASOUND [...] 02/13/2023 7:50:07 AM EST Workstation ID : [id number] REPORT SIGNATURE ON FILE Electronically Signed Date/Time: 02/13/23 0750 Dictated Date/time: 02/13/2349 CC: [facility] Laboratory studies (set)on 0 02-13-2023 Anion gap [Moles/Vol] 10.0 mmol/L Low 06-21 [facility] Basophils (Bld) [#/Vol] 0.0 10*3/uL 0-0.1 [facility] Basophils/100 WBC (Bld) 0.40 % 0-2 [facility] Calcium [Mass/Vol] 8.5 mg/dL 8.5-10.1 [facility] Chloride [Moles/Vol] 111 mmol/L High 98-107 Nishant ance CO2 [Moles/Vol] 24.0 mmol/L 21-32 [facility] Creatinine [Mass/Vol] 0.70 mg/dL 0.55-1.02 Corey iance D-Dimer, Quantitative 0.48 mg/L FEU 0.0-0.59 [facility] Comment on above: The cut-off level fo [...] therapy. Eosinophils (Bld) [#/Vol] 0.2 10*3/uL 0.0-1.80 [facility] Eosinophils/100 WBC (Bld) 2.8 % 0-8 [facility] Erythrocyte distribution width (RBC) [Ratio] 17.7 % High 11.0-15.5 [facility] Estimated GFR () [facility] Comment on above: THE NORMAL LEVEL OF GFR VARIES ACCORDING TO AGE, SEX, AND BODY SIZE. A GFR LEVEL OF LESS THAN 60 ML/MIN REPRESENTS LOSS OF THE ADULT LEVEL OF NORMAL KIDNEY FUNCTION. GFR/1.73 sq M.predicted among non-blacks MDRD (S/P/Bld) [Vol rate/Area] [facility] Glucose [Mass/Vol] 120 mg/dL High 70-100 Allian ce Granulocytes (Bld) [#/Vol] 3.9 10*3/uL 2.2-9.1 [facility] Granulocytes/100 WBC (Bld) 53.4 % 42-80 [facility] Hematocrit (Bld) [Volume fraction] 32.7 % Low 37.0-47.0 [facility] Hemoglobin (Bld) [Mass/Vol] 10.8 g/dL Low 12.0-16.0 [facility] Lymphocytes (Bld) [#/Vol] 2.6 10*3/uL 1.0-4.0 [facility] Lymphocytes/100 WBC (Bld) 36.3 % 16-48 [facility] MCH (RBC) [Entitic mass] 26.1 pg 26.0-32.0 [facility] MCHC (RBC) [Mass/Vol] 32.9 g/dL 31.0-36.0 [facility] iance MCV (RBC) [Entitic vol] 79.5 fL Low 80-97 [facility] Monocyte distribution width Auto (Bld) [Entitic vol] 15.75 0-20 [facility] Comment on above: For ED adult patient s suspected of sepsis, MDW<=20.0 does not rule out sepsis or risk of sepsis Monocytes (Bld) [#/Vol] 0.5 10*3/uL 0.1-1.7 [facility] Monocytes/100 WBC (Bld) 7.1 % 3-9 [facility] Platelet mean volume (Bld) [Entitic vol] 9.8 fL 6.6-10.5 [facility] Platelets (Bld) [#/Vol] 165 10*3/uL 140-450 [facility] Potassium [Moles/Vol] 3.6 mmol/L 3.5-5.1 [facility] RBC (Bld) [#/Vol] 4.12 10*6/uL Low 4.20-5.50 [facility] Sodium [Moles/Vol] 142 mmol/L 136-145 [facility] Urea nitrogen [Mass/Vol] 10.0 mg/dL 7-18 [facility] WBC (Bld) [#/Vol] 7.3 10*3/uL 4.0-11.[address] [facility] [address] CHEST PULMONARY EMBOLISM W CONTRASTon [...] Beau Nunn MD 09/26/22 Final result Normal [facility] BMPon 09-26-2022 Anion gap [Moles/Vol] 11 mmol/L 9 - 17 mmol/L [facility] Calcium [Mass/Vol] 9.6 mg/dL 8.6 - 10. 4 mg/dL [facility] Chloride [Moles/Vol] 106 mmol/L 98 - 10 7 mmol/L [facility] CO2 [Moles/Vol] 22 mmol/L 20 - 31 mmol/L [facility] Creatinine [Mass/Vol] 0.59 mg/dL 0.50 - 0.90 mg/dL [facility] GFR/1.73 sq M.predicted MDRD (S/P/Bld) [Vol rate/Area] - PINF [facility] Comment on above: These results are [...] 124 mg/dL High 70 - 99 mg/dL [facility] Interpretation and review of laboratory results Abnormal [facility] Potassium [Moles/Vol] 3.6 mmol/L Low 3.7 - 5.3 mmol/L [facility] Sodium [Moles/Vol] 139 mmol/L 135 - 144 mmol/L [facility] Urea nitrogen [Mass/Vol] 7 mg/dL 6 - 20 mg/dL [facility] Basic Metabolic Profon 09-26 Anion gap [Moles/Vol] 11 mmol/L Normal 9-17 [facility] Comment on above: Performed By: #### D CHAPINCITO, BMP, HCG, CDP, TSH, MG, TROPI #### [facility] [employer] [address] [place] [address] English Tutor: Chaitanya Mtz MD Calcium [Mass/Vol] 9.6 mg/dL Normal 8.6-10.4 [facility] Comment on above: Performed By: #### D CHAPINCITO, BMP, HCG, CDP, TSH, MG, TROPI #### [employer] [address] [place] [phone] English Tutor: Chaitanya Mtz MD Chloride [Moles/Vol] 106 mmol/L Normal 98-107 [facility] Comment on above: Performed By: #### D CHAPINCITO, BMP, HCG, CDP, TSH, MG, TROPI #### [facility] [employer] [address] [place] [phone] English Tutor: Chaitanya Mtz MD CO2 [Moles/Vol] 22 mmol/L Normal 20-31 [facility] Comment on above: Performed By: #### D CHAPINCITO, BMP, HCG, CDP, TSH, MG, TROPI #### [facility] [address] [place] [address] [phone] English Tutor: Chaitanya Mtz MD Creatinine [Mass/Vol] 0.59 mg/dL Normal 0.50-0.90 [facility] Comment on above: Performed By: #### D CHAPINCITO, BMP, HCG, CDP, TSH, MG, TROPI #### [facility] [employer] [address] [place] [address] [phone] English Tutor: Chaitanya Mtz MD GFR/1.73 sq M.predicted among non-blacks MDRD (S/P/Bld) [Vol rate/Area] mL/min/{1.73_m2} Normal >60 [facility] Comment on above: Result Comment: These [...] BMP, HCG, CDP, TSH, MG, TROPI #### [employer] [address] [place] [phone] English Tutor: Chaitanya Mtz MD Glucose [Mass/Vol] 124 mg/dL High 70-99 [facility] Comment on above: Performed By: #### D CHAPINCITO, BMP, HCG, CDP, TSH, MG, TROPI #### [employer] [address] [place] [phone] English Tutor: Chaitanya Mtz MD Potassium [Moles/Vol] 3.6 mmol/L Low 3.7-5.3 [facility] Comment on above: Performed By: #### D CHAPINCITO, BMP, HCG, CDP, TSH, MG, TROPI #### [facility] [employer] [address] [place] [phone] English Tutor: Chaitanya Mtz MD Sodium [Moles/Vol] 139 mmol/L Normal 135-144 [facility] Comment on above: Performed By: #### D CHAPINCITO, BMP, HCG, CDP, TSH, MG, TROPI #### [employer] [address] [place] [phone] English Tutor: Chaitanya Mtz MD Urea nitrogen [Mass/Vol] 7 mg/dL Normal 6-20 [facility] Comment on above: Performed By: #### D CHAPINCITO, BMP, HCG, CDP, TSH, MG, TROPI #### [employer] [address] [place] [phone] English Tutor: Chaitanya Mtz MD CBC with Auto Differentialon 09-26-2022 Absolute Eos # 0.09 [facility] [employer] Absolute Immature Granulocyte [facility] Absolute Lymph # 2.78 [facility] Absolute [place] # 0.38 [facility] Basophils (Bld) [#/Vol] 0.03 10*3/uL [facility] Interpretation and review of laboratory results Abnormal [facility] NRBC Automated 0.0 0.0 per 100 WBC [facility] Platelet distribution width (Bld) [Ratio] 14.6 % High 11.8 - 14.4 % [facility] RBC (Bld) [#/Vol] ANISOCYTOSIS PRESENT [facility] Segmented neutrophils/100 WBC (Bld) 49 % 36 - 65 % [facility] Segs Absolute 3.16 [facility] CBC with Diffon 09-26-2022 Abs. Basophil 0.03 k/uL Normal 0.00-0.20 [facility] Comment on above: Performed By: #### D CHAPINCITO, BMP, HCG, CDP, TSH, MG, TROPI #### [facility] [employer] [address] [place] [address] English Tutor: Chaitanya Mtz MD Abs.Imm.Granulocyte <0.03 Normal 0.00-0.30 [facility] Comment on above: Performed By: #### D CHAPINCITO, BMP, HCG, CDP, TSH, MG, TROPI #### [employer] [address] [place], [place] [phone] English Tutor: Chaitanya Mtz MD Abs.Neutrophil (Seg) 3.16 k/uL Normal 1.50-8.10 [facility] Comment on above: Performed By: #### D CHAPINCITO, BMP, HCG, CDP, TSH, MG, TROPI #### [employer] [address] [place] [address] English Tutor: Chaitanya Mtz MD Eosinophils (Bld) [#/Vol] 0.09 10*3/uL Normal 0.00-0.44 [facility] Comment on above: Performed By: #### D CHAPINCITO, BMP, HCG, CDP, TSH, MG, TROPI #### [employer] [address] [place] [phone] English Tutor: Chaitanya Mtz MD Erythrocyte distribution width (RBC) [Ratio] 14.6 % High 11.8-14.4 [facility] Comment on above: Performed By: #### D CHAPINCITO, BMP, HCG, CDP, TSH, MG, TROPI #### [address] [address] English Tutor: Chaitanya Mtz MD Lymphocytes (Bld) [#/Vol] 2.78 10*3/uL Normal 1.10-3.70 [facility] Comment on above: Performed By: #### D CHAPINCITO, BMP, HCG, CDP, TSH, MG, TROPI #### [address] [address] English Tutor: Chaitanya Mtz MD Monocytes (Bld) [#/Vol] 0.38 10*3/uL Normal 0.10-1.20 [facility] Comment on above: Performed By: #### D CHAPINCITO, BMP, HCG, CDP, TSH, MG, TROPI #### [address] [address] English Tutor: Chaitanya Mtz MD Neutrophil (Seg) 49 % Normal 36-65 [facility] Comment on above: Performed By: #### D CHAPINCITO, BMP, HCG, CDP, TSH, MG, TROPI #### [facility] [employer] [address] [place] [phone] English Tutor: Chaitanya Mtz MD NRBC Automated 0.0 per 100 WBC Normal 0.0 [facility] Comment on above: Performed By: #### D CHAPINCITO, BMP, HCG, CDP, TSH, MG, TROPI #### [facility] [employer] [address] [place] [phone] English Tutor: Chaitanya Mtz MD RBC morphology finding Nom (Bld) ANISOCYTOSIS PRESENT Normal [facility] Comment on above: Performed By: #### D CHAPINCITO, BMP, HCG, CDP, TSH, MG, TROPI #### [facility] [employer] [address] [place] [phone] English Tutor: Chaitanya Mzt MD Basophils/100 WBC (Bld) 1 % Normal 0-2 [facility] Comment on above: Performed By: #### D CHAPINCITO, BMP, HCG, CDP, TSH, MG, TROPI #### [facility] [address] [place] [address] [phone] English Tutor: Chaitanya Mtz MD Eosinophils/100 WBC (Bld) 1 % Normal 1-4 [facility] Comment on above: Performed By: #### D CHAPINCITO, BMP, HCG, CDP, TSH, MG, TROPI #### [facility] [address] [place] [phone] English Tutor: Chaitanya Mtz MD Hematocrit (Bld) [Volume fraction] 34.4 % Low 36.3-47.1 [facility] Comment on above: Performed By: #### D CHAPINCITO, BMP, HCG, CDP, TSH, MG, TROPI #### [facility] [address] [place] [phone] English Tutor: Chaitanya Mtz MD Hemoglobin (Bld) [Mass/Vol] 10.6 g/dL Low 11.9-15.1 [facility] Comment on above: Performed By: #### D CHAPINCITO, BMP, HCG, CDP, TSH, MG, TROPI #### [facility] [address] [place] [phone] English Tutor: Chaitanya Mtz MD Immature granulocytes/100 WBC (Bld) 0 % Normal 0 [facility] Comment on above: Performed By: #### D CHAPINCITO, BMP, HCG, CDP, TSH, MG, TROPI #### [facility] [address] [place] [phone] English Tutor: Chaitanya Mtz MD Lymphocytes/100 WBC (Bld) 43 % Normal 24-43 [facility] Comment on above: Performed By: #### D CHAPINCITO, BMP, HCG, CDP, TSH, MG, TROPI #### [employer] [address] [place] [address] [phone] English Tutor: Chaitanya Mtz MD MCH (RBC) [Entitic mass] 26.5 pg Normal 25.2-33.5 [facility] Comment on above: Performed By: #### D CHAPINCITO, BMP, HCG, CDP, TSH, MG, TROPI #### [address] [address] English Tutor: Chaitanya Mtz MD MCHC (RBC) [Mass/Vol] 30.8 g/dL Normal 28.4-34.8 [facility] Comment on above: Performed By: #### D CHAPINCITO, BMP, HCG, CDP, TSH, MG, TROPI #### [facility] [employer] [address] [place] [phone] English Tutor: Chaitanya Mtz MD MCV (RBC) [Entitic vol] 86.0 fL Normal 82.6-102.9 [facility] Comment on above: Performed By: #### D CHAPINCITO, BMP, HCG, CDP, TSH, MG, TROPI #### [facility] [employer] [address] [place] [phone] English Tutor: Chaitanya Mtz MD Monocytes/100 WBC (Bld) 6 % Normal 3-12 [facility] Comment on above: Performed By: #### D CHAPINCITO, BMP, HCG, CDP, TSH, MG, TROPI #### [facility] [employer] [address] [place] [phone] English Tutor: Chaitanya Mtz MD Platelet mean volume (Bld) [Entitic vol] 11.5 fL Normal 8.1-13.5 [facility] Comment on above: Performed By: #### D CHAPINCITO, BMP, HCG, CDP, TSH, MG, TROPI #### [facility] [employer] [address] [place] [address] [id number] English Tutor: Chaitanya Mtz MD Platelets (Bld) [#/Vol] 201 10*3/uL Normal 138-453 [facility] Comment on above: Performed By: #### D CHAPINCITO, BMP, HCG, CDP, TSH, MG, TROPI #### [facility] [address] [place] [address] English Tutor: Chaitanya Mtz MD RBC (Bld) [#/Vol] 4.00 10*6/uL Normal 3.95-5.11 [facility] Comment on above: Performed By: #### D CHAPINCITO, BMP, HCG, CDP, TSH, MG, TROPI #### [facility] [address] [place] [address] English Tutor: Chaitanya Mtz MD WBC (Bld) [#/Vol] 6.5 10*3/uL Normal 3.5-11.3 [facility] Comment on above: Performed By: #### D CHAPINCITO, BMP, HCG, CDP, TSH, MG, TROPI #### [facility] [address] [place] [address] English Tutor: Chaitanya Mtz MD CT CHEST PULMONARY EMBOLISM W CONTRASTon 09-26-2022 No evidence of pulmonary embolism or acute pulmonary abnormality. [facility] CONSOLIDATED EXAMINATION: CTA OF THE CHEST [...] No acute bone or soft tissue abnormality. [facility] Beau Brody MD - 09/26/2022 EXAMINATION: CTA OF THE [...] of pulmonary embolism or acute pulmonary abnormality. [employer] Phone: Radiology Study observation (narrative) [employer] Phone: CT CHEST PULMONARY EMBOLISM W CONTRASTOrdered By: Beau Nunn on 09-26-2022 [employer] Phone: D-Dimer Teston 09-26-2022 D-Dimer Test 0.50 mg/L FEU Normal [facility] Comment on above: Result Comment: When [...] BMP, HCG, CDP, TSH, MG, TROPI #### [facility] [place] [id number] English Tutor: Chaitanya Mtz MD D-Dimer, Quantitativeon 08-31 [employer] D-dimer FEU IA (Bld) [Mass/Vol] 0.50 ug/mL mg/L FEU [facility] Comment on above: When combined with [...] more prevalent in patients with distal DVT. [facility] [employer] HCG Qualitative, Serumon hCG Qual Negative NEGATIVE [facility] Comment on above: Specimens with hCG l evels near the threshold of the test (25 mIU/mL) may give a negative or indeterminate result. In such cases, another test should be performed with a new specimen in 48-72 hours. If early is suspected clinically in this setting, correlation with quantitative serum b-hCG level is suggested. [facility] has confirmed the use of plasma for this test. This has not been cleared or approved by the U.S. Food and Drug Administration. The FDA has determined that such clearance is not necessary. [facility] [employer] HCG Screen, Bloodon 09-26-19 HCG Screen, Blood Negative Normal NEG [facility] Comment on above: Result Comment: Spec imens with hCG levels near the threshold of the test (25 mIU/mL) may give a negative or indeterminate result. In such cases, another test should be performed with a new specimen in 48-72 hours. If early is suspected clinically in this setting, correlation with quantitative serum b-hCG level is suggested. [employer] has confirmed the use of plasma for this test. This has not been cleared or approved by the U.S. Food and Drug Administration. The FDA has determined that such clearance is not necessary. Performed By: #### D CHAPINCITO, BMP, HCG, CDP, TSH, MG, TROPI #### [employer] [facility] [place] [address] English Tutor: Chaitanya Mtz MD Magnesiumon 09-26-2022 Magnesium [Mass/Vol] 2.0 mg/dL Normal 1.6-2.6 [facility] Comment on above: Performed By: #### D CHAPINCITO, BMP, HCG, CDP, TSH, MG, TROPI #### [employer] [address] [place] [address] [id number] English Tutor: Chaitanya Mtz MD Magnesium [Mass/Vol] 2.0 mg/dL 1.6 - 2 .6 mg/dL [facility] No Panel Informationon 09-26 [facility] POC Glucose Fingerstickon Glucose [Mass/Vol] 116 mg/dL High 65 - 105 mg/dL [facility] Interpretation and review of laboratory results Abnormal [facility] TSHon 09-26-2022 TSH Qn 0.37 m[IU]/L [facility] Thyroid Stim. Horm.on 2022 Thyroid Stim. Horm. 0.37 uIU/mL Normal 0.30-5.00 [facility] Comment on above: Performed By: #### D CHAPNICITO, BMP, HCG, CDP, TSH, MG, TROPI #### [employer] [address] [place] [address] [id number] English Tutor: Chaitanya Mtz MD Troponinon 09-26-2022 Troponin, High Sens <6 Normal 0-14 [facility] Comment on above: Result Comment: High Sensitivity Troponin values cannot be compared with other Troponin methodologies. Performed By: #### D CHAPINCITO, BMP, HCG, CDP, TSH, MG, TROPI #### [facility] [employer] [address] [place] [address] [id number] English Tutor: Chaitanya Mtz MD Troponin I.cardiac DL <= 0.01 ng/mL [Mass/Vol] ng/L 0 - 14 ng/L [facility] Comment on above: High Sensitivity Tro ponin values cannot be compared with other Troponin methodologies. Laboratory studies (set)on 0 09-25-2022 Troponin 3.7 pg/mL 0-53.7 [facility] Comment on above: Troponin Reference R flip: Male: 0-78.5 pg/mL (ng/L) Female: 0-53.7 pg/mL (ng/L) Note: The new high sensitivity Troponin units are in pg/mL (ng/L) Albumin [Mass/Vol] 3.7 g/dL 3.4-5.0 [facility] Albumin/Globulin [Mass ratio] 1.0 {ratio} Low 1.1-1.8 [facility] ALP [Catalytic activity/Vol] 86 U/L 45-117 [facility] ALT [Catalytic activity/Vol] 18 U/L 12-78 [facility] Anion gap [Moles/Vol] 5.9 mmol/L Low 11-23 [facility] Appearance (U) CLEAR [facility] AST [Catalytic activity/Vol] 10 U/L Low 15-37 [facility] Basophils (Bld) [#/Vol] 0.0 10*3/uL 0-0.1 [facility] Basophils/100 WBC (Bld) 0.40 % 0-2 [facility] Bilirubin [Mass/Vol] 0.4 mg/dL 0.2-1.0 [facility] Bilirubin Ql (U) NEGATIVE [facility] Calcium [Mass/Vol] 8.8 mg/dL 8.5-10.1 [facility] Chloride [Moles/Vol] 110 mmol/L High 98-107 [facility] CK [Catalytic activity/Vol] 70 U/L 26-192 [facility] CO2 [Moles/Vol] 26.0 mmol/L 21-32 [facility] Color (U) [facility] Creatinine [Mass/Vol] 0.70 mg/dL 0.55-1.02 [facility] D-Dimer, Quantitative 0.45 mg/L FEU 0.0-0.59 [facility] Comment on above: The cut-off level fo [...] therapy. Eosinophils (Bld) [#/Vol] 0.1 10*3/uL 0.0-1.80 [facility] Eosinophils/100 WBC (Bld) 2.3 % 0-8 [facility] Erythrocyte distribution width (RBC) [Ratio] 15.9 % High 11.0-15.5 [facility] Estimated GFR () [facility] Comment on above: THE NORMAL LEVEL OF GFR VARIES ACCORDING TO AGE, SEX, AND BODY SIZE. A GFR LEVEL OF LESS THAN 60 ML/MIN REPRESENTS LOSS OF THE ADULT LEVEL OF NORMAL KIDNEY FUNCTION. GFR/1.73 sq M.predicted among non-blacks MDRD (S/P/Bld) [Vol rate/Area] [facility] Globulin (S) [Mass/Vol] 3.5 g/dL 2.5-4.6 [facility] Glucose [Mass/Vol] 116 mg/dL High 70-100 [facility] Glucose Ql (U) NEGATIVE [facility] Granulocytes (Bld) [#/Vol] 3.0 10*3/uL 2.2-9.1 [facility] Granulocytes/100 WBC (Bld) 50.3 % 42-80 [facility] HCG Qn (U) [facility] Hematocrit (Bld) [Volume fraction] 32.0 % Low 37.0-47.0 [facility] Hemoglobin (Bld) [Mass/Vol] 10.4 g/dL Low 12.0-16.0 [facility] Hemoglobin Ql (U) NEGATIVE [facility] Ketones Ql (U) NEGATIVE [facility] Leukocyte esterase Test strip Ql (U) NEGATIVE [facility] Lymphocytes (Bld) [#/Vol] 2.3 10*3/uL 1.0-4.0 [facility] Lymphocytes/100 WBC (Bld) 38.5 % 16-48 [facility] MCH (RBC) [Entitic mass] 26.8 pg 26.0-32.0 [facility] MCHC (RBC) [Mass/Vol] 32.5 g/dL 31.0-36.0 All [facility]ance MCV (RBC) [Entitic vol] 82.2 fL 80-97 [facility] Monocyte distribution width Auto (Bld) [Entitic vol] 17.39 0-20 [facility] Comment on above: For ED adult patient s suspected of sepsis, MDW<=20.0 does not rule out sepsis or risk of sepsis Monocytes (Bld) [#/Vol] 0.5 10*3/uL 0.1-1.7 [facility] Monocytes/100 WBC (Bld) 8.5 % 3-9 [facility] Nitrite Ql (U) NEGATIVE [facility] pH (U) 6.0 [pH] 5.0-9.0 [facility] Platelet mean volume (Bld) [Entitic vol] 9.4 fL 6.6-10.5 [facility] Platelets (Bld) [#/Vol] 185 10*3/uL 140-450 [facility] Potassium [Moles/Vol] 4.1 mmol/L 3.5-5.1 [facility] Protein [Mass/Vol] 7.2 g/dL 6.0-8.3 [facility] Protein Ql (U) NEGATIVE [facility] RBC (Bld) [#/Vol] 3.89 10*6/uL Low 4.20-5.50 [facility] Sodium [Moles/Vol] 138 mmol/L 136-145 [facility] Specific gravity (U) [Rel density] 1.003-1.035 [facility] Urea nitrogen [Mass/Vol] 8.0 mg/dL 7-18 [facility] Urobilinogen Ql (U) 0.2 E.U./dL <=1.0 [facility] WBC (Bld) [#/Vol] 5.9 10*3/uL 4.0-11.0 [facility] LABORATORYOrdered By: Rupali Jones on 03-08-2022 Blood Glucose Testing Reason Routine (03/08/22 7:11 AM) [facility] Glucose [Mass/Vol] 158 mg/dL Invalid Interpretation Code 70 - 110 mg/dL [facility] LABORATORYOrdered By: Nelson Tran on 03-07-2022 Glucose [Mass/Vol] 110 mg/dL Invalid Interpretation Code 70 - 110 mg/dL [facility] Blood Glucose Testing Reason Routine (03/07/22 6:15 PM) [facility] Glucose [Mass/Vol] 210 mg/dL Invalid Interpretation Code 70 - 110 mg/dL [facility] LABORATORYOrdered By: Linh Mix on 2022 Blood Glucose Testing Reason Routine (03/06/22 8:45 PM) [facility] LABORATORYOrdered By: SYSTEM SYSTEM on 2022 Albumin BCP dye [Mass/Vol] [...] (S/P/Bld) [Vol rate/Area] ml/min/1.73sqm Invalid Interpretation Code AH Chemistry S GFR/1.73 sq M.predicted among non-blacks [...] 16.0 G/dL [facility] Lymphocytes (Bld) [#/Vol] 3.1 103/mcL Invalid Interpretation Code 0.9 - 4.3 10^3/mcL [facility] Lymphocytes/100 WBC (Bld) 37.0 % Invalid Interpretation Code 20.0 - 40.0 % Workflow SS MCH (RBC) [Entitic mass] 31.4 [...] sugar, Notify physician 4 (03/06/22 8:45 PM) [facility] LABORATORYOrdered By: Abigail marie on 03-05-2022 Drug [...] (03/05/22 10:03 AM) Invalid Interpretation Code Negative [facility] Comment on above: Result Comment: [place] [id number] LABORATORYOrdered By: Nancy del rio on 03-05-2022 ABO and Rh group Nom (Bld) Blood group O Rh(D) positive Invalid Interpretation Code BB Auto SS Blood group antibody screen Ql NEG (03/05/22 10:02 AM) Invalid Interpretation Code BB Auto SS LABORATORYOrdered By: [employer] SYSTEM on 03-05-2022 Basophils (Bld) [#/Vol] 0.0 103/mcL Invalid Interpretation Code 0.0 - 0.3 10^3/mcL [facility] Basophils/100 WBC (Bld) 0.2 % Invalid Interpretation Code 0.0 - 2.5 % [facility] Eosinophils (Bld) [#/Vol] 0.0 103/mcL Invalid Interpretation Code 0.0 - 0.7 10^3/mcL [facility] Eosinophils/100 WBC (Bld) 0.3 % Invalid Interpretation Code 0.0 - 6.0 % [facility] Erythrocyte distribution width (RBC) [Ratio] 14.3 % Invalid Interpretation Code 11.5 - 15.5 % [facility] Hematocrit (Bld) [Volume fraction] 37.0 % Invalid Interpretation Code 34.0 - 46.0 % Workflow [facility] Hemoglobin (Bld) [Mass/Vol] 12.4 G/dL [...] Invalid Interpretation Code See NG Interp N AH Auto Viro/Sero SS Reagin Ab RPR Ql (S) Non-Reactive (03/05/22 10:02 AM) Invalid Interpretation Code Non-Reactive AH Man [facility] SS Laboratory - Specimen inform ationOrdered By: Mando Willis on 03-05-2022 Specimen source Nom (Unsp spec) Vaginal (03/05/22 10:02 AM) Invalid Interpretation Code Auto Viro/Sero SS LABORATORYOrdered By: Nancy senior on 01-18-2022 Glucose [Mass/Vol] 106 mg/dL Invalid Interpretation Code 70 - 110 mg/dL [facility] LABORATORYOrdered By: Nancy senior on 01-17-2022 Glucose [Mass/Vol] 155 mg/dL Invalid Interpretation Code 70 - 110 mg/dL [facility] Glucose [Mass/Vol] 195 mg/dL Invalid Interpretation Code 70 - 110 mg/dL [facility] LABORATORYOrdered By: Trisha Pena on 01-17-2022 ABO and Rh group Nom (Bld) Blood group O Rh(D) positive Invalid Interpretation Code BB Auto SS Blood group antibody screen Ql NEG (01/17/22 5:09 PM) Invalid Interpretation Code AH BB Auto SS LABORATORYOrdered By: [employer] on 01-17-2022 Basophils (Bld) [#/Vol] 0.0 103/mcL Invalid Interpretation Code 0.0 - 0.3 10^3/mcL AH Workflow SS Basophils/100 WBC (Bld) 0.3 % Invalid Interpretation Code 0.0 - 2.5 % AH Workflow SS Eosinophils (Bld) [#/Vol] 0.0 103/mcL Invalid Interpretation Code 0.0 - 0.7 10^3/mcL AH Workflow SS Eosinophils/100 WBC (Bld) 0.7 % Invalid Interpretation Code 0.0 - 6.0 % AH Workflow SS Erythrocyte distribution width (RBC) [Ratio] 13.7 % Invalid Interpretation Code 11.5 - 15.5 % AH Workflow SS Hematocrit (Bld) [Volume fraction] 35.8 % Invalid Interpretation Code 34.0 - 46.0 % AH Workflow SS Hemoglobin (Bld) [Mass/Vol] 11.9 G/dL Invalid Interpretation Code 12.0 - 16.0 G/dL AH Workflow SS Lymphocytes (Bld) [#/Vol] 2.2 103/mcL Invalid Interpretation Code 0.9 - 4.3 10^3/mcL Workflow SS Lymphocytes/100 WBC (Bld) 33.1 % Invalid Interpretation Code 20.0 - 40.0 % AH Workflow SS MCH (RBC) [Entitic mass] 30.5 [...] review and authentication has not occurred. Normal [facility] ER PHYSICIAN ASSESSMENT RECORDS : [employer] Event Time: 12/27/2021 01:45 [facility]CA Status: Signed [facility] Betsy Mesa [[id number]] Mid-Level Chart (V2b) / 1995 Chart created at 12/27/2021 01:33 by [employer] [place] Chart closed at 12/27/2021 01:57 Entry in Emergency Department at 12/26/2021 22:16, departure at 12/27/2021 02:09 Patient Name: Betsy Mesa Record Number: [id number] Date: 12/27/2021 01:33 Entered Department at: 12/26/2021 22:16 Patient Seen at: 12/27/2021 00:38 Historian: Patient PCP: [facility] Chief Complaint:RIGHT CALF PAIN, 29 [...] in the area. She denies any additional [facility] PATIENT NAME: BETSY MESA [address] [facility] [address] [place] MEDICAL REC #: [id number] [place] [address] EMERGENCY DEPARTMENT REPORT EMERGENCY DEPARTMENT PHYSICIAN symptoms including fever, chills, chest pain, shortness of breath, nausea, vomiting. She is currently 29 weeks . She has no complaints regarding the itself. She sees my [facility] for her . She has a history [...] Normal and Normal Memory/Judgment Medical Decision Making [facility] PATIENT NAME: BETSY MESA [address] [facility] [address] [place] MEDICAL REC #: [id number] [place] [address] EMERGENCY DEPARTMENT REPORT EMERGENCY DEPARTMENT PHYSICIAN As [...] own or she can follow-up with her BUYER ASSISTANT to have one scheduled for her. I am more (more content not included)... Normal [facility] LABORATORYOrdered By: Whitney Chand on 05-18-2021 [...] definite cause of disease. Laboratories within the [place] and its territories are required to report all positive results to the appropriate public health authorities.Detection of analyte target(s) does not imply that the corresponding virus(es) are infectious or are the causative agents for clinical symptoms.There is a risk of false positive values resulting from cross-contamination by target organisms, their nucleic acids or amplified product, or from non-specific signals in the assay.[employer] SARS-CoV-2 Assay is a Real-Time reverse-transcriptase polymerase [...] NEGATIVE: No targets were detected by the [place] [facility] Respiratory Pathogens PCR Panel. _ Expected Result: Not Detected The [place] Upper Respiratory Pathogens PCR Panel can detect [...] management decisions. This assay was developed by [employer] and distributed under an Emergency Use Authorization (EUA) granted by the [facility] for the qualitative detection of SARS-CoV-2 nucleic acid. Provider and patient fact sheets can be found at https://www.[facility].gov/vt nick/865308/download and https://www.[facility].gov/vt nick/315266/download. Respiratory Pathogens PCR Panel. _ Expected Result: Not Detected The [place] Upper Respiratory Pathogens PCR Panel can detect [...] management decisions. This assay was developed by [employer] and distributed under an Emergency Use Authorization (EUA) granted by the [facility] for the qualitative detection of SARS-CoV-2 nucleic acid. Provider and patient fact sheets can be found at https://www.[facility].gov/vt nick/572002/download and https://www.[facility].gov/vt nick/898077/download. Normal [facility] Comment on above: Performed By: #### B FRP2 #### [facility] [address] [place] [address] Chlamydia and GC PCR Panelon 03-16-2021 Chlamydia [...] as suspected child abuse or molestation. Normal [facility] Comment on above: Performed By: #### C TNGP #### [facility] [address] [place] [address] CR Chest Portableon 03-15-20 CR Chest Portable Patient Name: BETSY MESA Diagnostic Radiology ACCESSION EXAM DATE/TIME PROCEDURE ORDERING PROVIDER [id number] 03/15/2021 22:23 EDT CR Chest Portable CARL[employer] ENGLISH CPT code 11773 Reason For Exam (CR Chest Portable) cough [...] Transcribed Date and Time: 03/15/2021 10:26 Normal [facility] ED Provider Noteon ED Provider Note I was not involved i n this patient's care TESS Jeffers 03/15/21 2236 Normal [facility] ED Provider Note [facility] EMERGENCY DEPT EMERGENCY DEPARTMENT ENCOUNTER Pt [...] Gatherings with Friends and Family: ? Attends [employer] Services: ? Active Member of Clubs or [...] nursing note reviewed. Exam conducted with a coin box inspector present. Constitutional: General: She is not [...] No t (more content not included)... Normal [facility] XR CHEST PORTABLEOrdered By: Carlitos English on 03-15-2021 Patient Name: BETSY MESA Diagnostic Radiology ACCESSION EXAM DATE/TIME PROCEDURE ORDERING PROVIDER [id number] 03/15/2021 22:23 EDT CR Chest Portable [employer] CPT code 39218 Reason For Exam (CR Chest Portable) cough [...] WENDELL Transcribed Date and Time: 03/15/2021 10:26 [facility] Work Phone: [place], [facility] Incoming Radiology Results From [facility] - 03/15/2021 10:28 PM EDT Patient Name: BETSY MESA Diagnostic Radiology ACCESSION EXAM DATE/TIME PROCEDURE ORDERING PROVIDER [id number] 03/15/2021 22:23 EDT CR Chest Portable [employer] ENGLISH CPT code 46561 Reason For Exam (CR Chest Portable) cough [...] WENDELL Transcribed Date and Time: 03/15/2021 10:26 [facility] Work Phone: [facility] Work Phone: Basic Metabolic Panelon 08-0 Calcium [Mass/Vol] 9.5 mg/dL Normal 8.4-10.4 [facility] Comment on above: Performed By: #### H EMDF, TROPN, BMP3, QWAL2 #### [facility] [address] [place], [place] Anion gap [Moles/Vol] 6 mmol/L Normal 3-13 [facility] Comment on above: Performed By: #### H EMDF, TROPN, BMP3, QWAL2 #### [facility] [address] [place] [address] CO2 [Moles/Vol] 23 mmol/L Normal 22-30 [facility] Comment on above: Performed By: #### H EMDF, TROPN, BMP3, QWAL2 #### [facility] [address] [place] [address] Creatinine [Mass/Vol] 0.72 mg/dL Normal 0.52-1.25 [facility] Comment on above: Performed By: #### H EMDF, TROPN, BMP3, QWAL2 #### [facility] [address] [place], [place] eGFR OTHER > 90.0 Normal >60 [facility] Comment on above: Result Comment: KDIG O [...] #### H EMDF, TROPN, BMP3, QWAL2 #### [address] GFR/1.73 sq M.predicted among blacks MDRD (S/P/Bld) [Vol rate/Area] mL/min/{1.73_m2} Normal >60 [facility] Comment on above: Performed By: #### H EMDF, TROPN, BMP3, QWAL2 #### [address] Glucose [Mass/Vol] 145 mg/dL High 70-100 [facility] Comment on above: Performed By: #### H EMDF, TROPN, BMP3, QWAL2 #### [address] Urea nitrogen [Mass/Vol] 9 mg/dL Normal 7-20 [facility] Comment on above: Performed By: #### H EMDF, TROPN, BMP3, QWAL2 #### [address] Chloride [Moles/Vol] 108 mmol/L High 98-107 [facility] Comment on above: Performed By: #### H EMDF, TROPN, BMP3, QWAL2 #### [address] Potassium [Moles/Vol] 3.7 mmol/L Normal 3.5-5.1 [facility] Comment on above: Performed By: #### H EMDF, TROPN, BMP3, QWAL2 #### [facility] [address] [place] [address] Sodium [Moles/Vol] 138 mmol/L Normal 135-145 [facility] Comment on above: Performed By: #### H EMDF, TROPN, BMP3, QWAL2 #### [facility] [address] [place] [address] Basic Metabolic PanelOrdered By: Sherin Dawkins on 03-07-2021 Anion gap [Moles/Vol] 6 mmol/L 3 - 13 mmol/L [facility] Work Phone: Calcium [Mass/Vol] 9.5 mg/dL 8.4 - 10. 4 mg/dL [facility] Work Phone: Chloride [Moles/Vol] 108 mmol/L High 98 - 10 7 mmol/L [facility] Work Phone: CO2 [Moles/Vol] 23 mmol/L 22 - 30 mmol/L [facility] Work Phone: Creatinine [Mass/Vol] 0.72 mg/dL 0.52 - 1.25 mg/dL [facility] Work Phone: EGFR IF NonAfrican Japanese >90.0 >60 mL/min [facility] Work Phone: Comment on above: KDIGO [...] MDRD (S/P/Bld) [Vol rate/Area] mL/min/{1.73_m2} >60 mL/min [facility] Work Phone: Glucose [Mass/Vol] 145 mg/dL High 70 - 100 mg/dL [facility] Work Phone: Interpretation and review of laboratory results Abnormal [facility] Work Phone: Potassium [Moles/Vol] 3.7 mmol/L 3.5 - 5.1 mmol/L [facility] Work Phone: Sodium [Moles/Vol] 138 mmol/L 135 - 145 mmol/L [facility] Work Phone: Urea nitrogen (BldV) [Mass/Vol] 9 mg/dL 7 - 20 mg/dL [facility] Work Phone: Test Performed by [employer], [address] [place] [id number] [facility] Work Phone: [facility] Work Phone: Complete Urinalysison 2020 Amorphous Crystal Few Abnormal Negative [facility] Comment on above: Result Comment: . Performed By: #### C UA2 #### [employer] [facility] [address] Appearance (U) Turbid Abnormal Clear [facility] Comment on above: Result Comment: . Performed By: #### C UA2 #### [facility] [address] [place] [address] Bacteria Moderate Abnormal Negative [facility] Comment on above: Result Comment: . Performed By: #### C UA2 #### [employer] [address] [place] [phone] Bilirubin,Urine Negative Normal Negative [facility] Comment on above: Result Comment: . Performed By: #### C UA2 #### [place] [address] [place], [place] Cast, Hyaline Negative Normal Negative [facility] Comment on above: Result Comment: . Performed By: #### C UA2 #### [place] [address] [address] [place], [place] Color (U) Yellow Normal Lt. Yellow [facility] Comment on above: Result Comment: . Performed By: #### C UA2 #### [place] [address] [address] [place], [place] Glucose Ql (U) Normal Normal Normal (<70) [facility] Comment on above: Result Comment: . Performed By: #### C UA2 #### [place] [address] [address] [place], [place] Ketone,Urine 10 mg/dL Abnormal Negative [facility] Comment on above: Result Comment: . Performed By: #### C UA2 #### [place] [address] [address] [place], [place] Leukocytes,Urine 500 Robin/uL Abnormal Negative [facility] Comment on above: Result Comment: . Performed By: #### C UA2 #### [place] [address] [address] [place], [place] Mucous Threads Many Abnormal Negative [facility] Comment on above: Result Comment: . Performed By: #### C UA2 #### [place] [address] [address] [place], [place] Nitrites,Urine Negative Normal Negative [facility] Comment on above: Result Comment: . Performed By: #### C UA2 #### [place] [address] [address] [place], [place] Occult Blood,Urine Negative Normal Negative [facility] Comment on above: Result Comment: . Performed By: #### C UA2 #### [place] [address] [address] [place], [place] pH,Urine 6.0 Normal 5.0-8.0 [facility] Comment on above: Result Comment: . Performed By: #### C UA2 #### [place] [address], [place] Protein (U) [Mass/Vol] 20 mg/dL Abnormal Negative [facility] Comment on above: Result Comment: . Performed By: #### C UA2 #### [facility] [address], [place] RBC, Urine 26 - 50 Abnormal 0-2 [facility] Comment on above: Result Comment: . Performed By: #### C UA2 #### [facility] [address] [place] Specific [place],Urine 1.015 Normal 1.005 - 1.030 [facility] Comment on above: Result Comment: . Performed By: #### C UA2 #### [facility] [address], [place] Squamous Epithelial 26 - 50 Abnormal 3-5 [facility] Comment on above: Result Comment: . Performed By: #### C UA2 #### [facility] [address], [place] Urobilinogen,Urine 2 mg/dL Abnormal Normal (0-1) [facility] Comment on above: Result Comment: . Performed By: #### C UA2 #### [facility] [address], [place] WBC, Urine 26 - 50 Abnormal 0-5 [facility] Comment on above: Result Comment: . Performed By: #### C UA2 #### [facility] [address], [place] ED Provider Noteon ED Provider Note [facility] EMERGENCY DEPT EMERGENCY DEPARTMENT ENCOUNTER Pt [...] Duration, Modifying Factors, Severity) Note limiting factors. TRAMAINE Mesa is a 26 y.o. female who [...] Gatherings with Friends and Family: ? Attends [employer] Services: ? Active Member of Clubs or [...] the Emergency (more content not included)... Normal [facility] HCG Qualitative, SerumOrdere d By: Sherin Dawkins on 03-07-2021 hCG Qual Negative [employer] Work Phone: Comment on above: Reference Range: NEG ATIVE Effective 10/10/2019, the reference interval for the qualitative test has been updated. This test detects hCG at concentrations of 10 mIU/L or greater in serum. Test Performed by [facility], [address] [place] [address] [employer] Work Phone: [employer] Work Phone: Hemogram (CBC) w/Auto DiffOr dered By: Sherin Dawkins on 03-07-2021 Absolute Baso # 0.0 10*3/uL 0.0 - 0.2 10*3/uL [facility] Work Phone: Absolute Neut # 4.4 10*3/uL 1.8 - 7.0 10*3/uL [facility] Work Phone: Basophils/100 WBC (Bld) 0.5 % 0.0 - 2.0 % [facility] Work Phone: Eosinophils (Bld) [#/Vol] 0.0 10*3/uL 0.0 - 0.5 10*3/uL [facility] Work Phone: Eosinophils/100 WBC (Bld) 0.5 % Low 1.0 - 6.0 % [facility] Work Phone: Granulocytes/100 WBC (Bld) 56.3 % 40.0 - 80.0 % [facility] Work Phone: Hematocrit (Bld) [Volume fraction] 40.6 % 35.0 - 47.0 % [employer] Work Phone: Hemoglobin.gastrointes tinal spec 1 Ql (Stl) 13.6 g/dL 11.7 - 16.0 g/dL [facility] Work Phone: Interpretation and review of laboratory results Abnormal [facility] Work Phone: Lymphocytes (Bld) [#/Vol] 2.9 10*3/uL 1.0 - 4.3 10*3/uL [facility] Work Phone: Lymphocytes/100 WBC (Bld) 36.8 % 20.0 - 40.0 % [facility] Work Phone: MCH (RBC) [Entitic mass] 30.0 pg 26.0 - 34.0 pg [facility] Work Phone: MCHC (RBC) [Mass/Vol] 33.6 % 32.0 - 36.0 % [facility] Work Phone: MCV (RBC) [Entitic vol] 89.4 fL 79.0 - 98.0 fL [employer] Work Phone: Monocytes (Bld) [#/Vol] 0.5 10*3/uL 0.0 - 0.8 10*3/uL [employer] Work Phone: Monocytes/100 WBC (Bld) 5.9 % 2.0 - 10.0 % [employer] Work Phone: Platelet distribution width (Bld) [Ratio] 14.3 % 11.5 - 14.5 % [employer] Work Phone: Platelet mean volume (Bld) [Entitic vol] 10.2 fL 7.4 - 10.4 fL [employer] Phone: Platelets (Bld) [#/Vol] 183 10*3/uL 140 - 440 10*3/uL [employer] Work Phone: RBC (Bld) [#/Vol] 4.54 10*6/uL 3.80 - 5.2 0 10*6/uL [employer] Work Phone: WBC (Bld) [#/Vol] 7.8 10*3/uL 3.6 - 10.7 10*3/uL [employer] Work Phone: Test Performed by [facility], [address] [place] [address] [facility] Work Phone: [facility] Work Phone: Hemogram w/ Autodiffon 03-07 Abs Baso Cnt 0.0 10*3/uL Normal 0.0-0.2 [facility] [employer] Comment on above: Performed By: #### H EMDF, TROPN, BMP3, QWAL2 #### [facility] [address] [place] [id number] Abs Neutrophile Cnt 4.4 10*3/uL Normal 1.8-7.0 [facility] Comment on above: Performed By: #### H EMDF, TROPN, BMP3, QWAL2 #### [address] Basophils/100 WBC (Bld) 0.5 % Normal 0.0-2.0 [facility] Comment on above: Performed By: #### H EMDF, TROPN, BMP3, QWAL2 #### [address] Eosinophils (Bld) [#/Vol] 0.0 10*3/uL Normal 0.0-0.5 [facility] Comment on above: Performed By: #### H EMDF, TROPN, BMP3, QWAL2 #### [address] Eosinophils/100 WBC (Bld) 0.5 % Low 1.0-6.0 [facility] Comment on above: Performed By: #### H EMDF, TROPN, BMP3, QWAL2 #### [address] Erythrocyte distribution width (RBC) [Ratio] 14.3 % Normal 11.5-14.5 [facility] Comment on above: Performed By: #### H EMDF, TROPN, BMP3, QWAL2 #### [address] Granulocytes/100 WBC (Bld) 56.3 % Normal 40.0-80.0 [facility] Comment on above: Performed By: #### H EMDF, TROPN, BMP3, QWAL2 #### [address] Hematocrit (Bld) [Volume fraction] 40.6 % Normal 35.0-47.0 [facility] Comment on above: Performed By: #### H EMDF, TROPN, BMP3, QWAL2 #### [address] Hemoglobin (Bld) [Mass/Vol] 13.6 g/dL Normal 11.7-16.0 [facility] Comment on above: Performed By: #### H EMDF, TROPN, BMP3, QWAL2 #### [place] [address], [place] Lymphocytes (Bld) [#/Vol] 2.9 10*3/uL Normal 1.0-4.3 [facility] Comment on above: Performed By: #### H EMDF, TROPN, BMP3, QWAL2 #### [place] [address] [place], [place] Lymphocytes/100 WBC (Bld) 36.8 % Normal 20.0-40.0 [facility] Comment on above: Performed By: #### H EMDF, TROPN, BMP3, QWAL2 #### [address] MCH (RBC) [Entitic mass] 30.0 pg Normal 26.0-34.0 [facility] Comment on above: Performed By: #### H EMDF, TROPN, BMP3, QWAL2 #### [address] MCHC 33.6 % Normal 32.0-36.0 [facility] Comment on above: Performed By: #### H EMDF, TROPN, BMP3, QWAL2 #### [address] MCV (RBC) [Entitic vol] 89.4 fL Normal 79.0-98.0 [facility] Comment on above: Performed By: #### H EMDF, TROPN, BMP3, QWAL2 #### [address] [place] Monocytes (Bld) [#/Vol] 0.5 10*3/uL Normal 0.0-0.8 [facility] Comment on above: Performed By: #### H EMDF, TROPN, BMP3, QWAL2 #### [address] Monocytes/100 WBC (Bld) 5.9 % Normal 2.0-10.0 [facility] Comment on above: Performed By: #### H EMDF, TROPN, BMP3, QWAL2 #### [place] [address] [place], [place] Platelet mean volume (Bld) [Entitic vol] 10.2 fL Normal 7.4-10.4 [facility] Comment on above: Performed By: #### H EMDF, TROPN, BMP3, QWAL2 #### [place] [address] [place], [place] Platelets (Bld) [#/Vol] 183 10*3/uL Normal 140-440 [facility] Comment on above: Performed By: #### H EMDF, TROPN, BMP3, QWAL2 #### [address] RBC (Bld) [#/Vol] 4.54 10*6/uL Normal 3.80-5.20 [facility] Comment on above: Performed By: #### H EMDF, TROPN, BMP3, QWAL2 #### [address] WBC (Bld) [#/Vol] 7.8 10*3/uL Normal 3.6-10.7 [facility] Comment on above: Performed By: #### H EMDF, TROPN, BMP3, QWAL2 #### [address] Troponin Ion 03-07-2021 Troponin I.cardiac [Mass/Vol] ng/mL Normal 0.000-0.034 [facility] Comment on above: Result Comment: . Performed By: #### H EMDF, TROPN, BMP3, QWAL2 #### [address] Troponin f2Xnemviw By: Isreal Kincaid on 03-07-2021 Troponin I.cardiac [Mass/Vol] ng/mL 0.000 - 0.034 ng/mL [facility] Work Phone: Comment on above: . Test Performed by [facility] [employer] [facility] Work Phone: [facility] Work Phone: UrinalysisOrdered By: Sherin hanson on 03-07-2021 AMORPHOUS CRYSTAL Few Abnormal Negative /[HPF] [facility] Work Phone: Comment on above: . Appearance (U) Turbid Abnormal Clear NA [facility] Work Phone: Comment on above: . Bacteria, UA Moderate Abnormal Negative /[HPF] [facility] Work Phone: Comment on above: . Bilirubin Urine Negative Negative mg/dL [facility] Work Phone: Comment on above: . Color (U) Yellow Lt. Yellow NA [facility] Work Phone: Comment on above: . Glucose, Ur Normal Normal (<70) mg/dL [facility] Work Phone: Comment on above: . Hyaline Casts, UA Negative Negative /[LPF] [facility] Work Phone: Comment on above: . Interpretation and review of laboratory results Abnormal [facility] Work Phone: Ketones Ql (U) 10 mg/dL Abnormal Negative [facility] Work Phone: Comment on above: . LEUKOCYTES, UA 500 Abnormal Negative Robin/uL [facility] Work Phone: Comment on above: . Mucous Threads Many Abnormal Negative /[LPF] [facility] Work Phone: Comment on above: . Nitrite, Urine Negative Negative NA [facility] Work Phone: Comment on above: . Occult Blood,Urine Negative Negative mg/dL [facility] Work Phone: Comment on above: . pH (U) 6.0 [pH] [facility] Work Phone: Comment on above: . Protein (U) [Mass/Vol] 20 mg/dL Abnormal Negative [facility] [employer] Work Phone: Comment on above: . RBC, UA 26-50 Abnormal 0 - 2 /[HPF] [facility] Work Phone: Comment on above: . Specific [place], Urine 1.015 [facility] Work Phone: Comment on above: . Squam Epithel, UA 26-50 Abnormal 3 - 5 /[HPF] [facility] Work Phone: Comment on above: . Urobilinogen, Urine 2 mg/dL Abnormal Normal (0-1) [facility] Work Phone: Comment on above: . WBC, UA 26-50 Abnormal 0 - 5 /[HPF] [facility] Work Phone: Comment on above: . Test Performed by [facility], [address] [place] [address] [facility] Work Phone: [employer] Work Phone: hCG Qual Pregon 03-07-2021 hCG Qual Preg Negative Normal [employer] [facility] Comment on above: Result Comment: Refe rence Range: NEGATIVE Effective 10/10/2019, the reference interval for the qualitative test has been updated. This test detects hCG at concentrations of 10 mIU/L or greater in serum. Performed By: #### H EMDF, TROPN, BMP3, QWAL2 #### [facility] [address] [place] [phone] Chlam/GC-DNA Amplifiedon Chlam/GC-DNA Amplified Test performed at [facility] Chlamydia trachomatis DNA NOT DETECTED Neisseria gonorrhoeae DNA NOT DETECTED Reference range NOT DETECTED Method: Strand Displacement Amplification-BD ProbeTec Assay Comment: A negative result does not preclude C.trachomatis or N. gonorrhoeae infection because results are dependent on adequate specimen collection, absence of inhibitors, and sufficient DNA to be detected. Normal [facility] Comment on above: Performed By: #### T &S #### [place] [address] HIV Screenon 01-07-2019 HIV Screen Nonreactive Normal Nonreactive [facility] Comment on above: Performed By: #### 3 HIV #### [place] [address] Hepatitis Acute Panelon 12-28 HAV Ab IgM Negative Normal Negative [facility] Comment on above: Performed By: #### H EPP #### [facility] [address] [place] [address] HB Core Ab IgM Negative Normal Negative [facility] Comment on above: Performed By: #### H EPP #### [facility] [address] [place] [address] Hepatitis C Ab Negative Normal Negative [facility] Comment on above: Performed By: #### H EPP #### [place] [address] Hep.B Surface Ag Negative Normal Negative [facility] Comment on above: Performed By: #### H EPP #### [place] [address] Rapid Bact.Vaginosison 01-07 Rapid Bact.Vaginosis see below Normal Negative [facility] Comment on above: Result Comment: Posi tive for the presence of bacterial vaginosis. Performed By: #### R APBV #### [place] [address] Rapid Trichomonas Agon 01-07 Rapid Trichomonas Ag see below Normal Negative [facility] Comment on above: Result Comment: No T richomonas antigen present or the antigen level is below detection limit of the assay (2500 organisms/mL). Performed By: #### R APTR #### [place] [address] Rubella, Quantitativeon 12-28 Rubella, Quantitative 22.80 IU/mL Normal [facility] Comment on above: Result Comment: Not Immune <5.0 IU/mL Indeterminate >=5.0 IU/mL <=9.9 IU/ml Suggest repeat testing in 2-3 weeks Immune >=10.0 IU/mL Performed By: #### R UB3 #### [place] [address] Chlam/GC-DNA Amplifiedon Chlam/GC-DNA Amplified Test performed at [facility] Chlamydia trachomatis DNA NOT DETECTED Neisseria gonorrhoeae DNA NOT DETECTED Reference range NOT DETECTED Method: Strand Displacement Amplification-BD ProbeTec Assay Comment: A negative result does not preclude C.trachomatis or N. gonorrhoeae infection because results are dependent on adequate specimen collection, absence of inhibitors, and sufficient DNA to be detected. Normal [facility] Comment on above: Performed By: #### T &S #### [facility] [address] [place] [address] Cult Urineon 01-06-2019 Cult Urine Test performed at [facility] ORGANISM: *Streptococcus agalactiae (Group B Strep) (ID: 1) >100,000 CFU/ml Normal [facility] Comment on above: Performed By: #### C _URI #### [place] [address] Hemogramon 01-06-2019 Erythrocyte distribution width (RBC) [Ratio] 14.2 % Normal 11.7-14.4 [facility] Comment on above: Performed By: #### C BC1 #### [place] [address] Hematocrit (Bld) [Volume fraction] 36.1 % Normal 34.1-44.9 [facility] Comment on above: Performed By: #### C BC1 #### [place] [address] Hemoglobin (Bld) [Mass/Vol] 12.0 g/dL Normal 11.2-15.7 [facility] Comment on above: Performed By: #### C BC1 #### [place] [address] MCH (RBC) [Entitic mass] 29.6 pg Normal 25.6-32.2 [facility] Comment on above: Performed By: #### C BC1 #### [place] [address] MCHC (RBC) [Mass/Vol] 33.2 % Normal 31.6-34.8 [facility] Comment on above: Performed By: #### C BC1 #### [place] [address] MCV (RBC) [Entitic vol] 89.1 fL Normal 79.4-94.8 [facility] Comment on above: Performed By: #### C BC1 #### [facility] [address] [place] [address] Platelet mean volume (Bld) [Entitic vol] 11.8 fL Normal 9.4-12.3 [facility] Comment on above: Performed By: #### C BC1 #### [facility] [address] [place] [address] Platelets (Bld) [#/Vol] 179 thou/cmm Low 182-369 [facility] Comment on above: Performed By: #### C BC1 #### [facility] [address] [place] [address] RBC (Bld) [#/Vol] 4.05 mil/cmm Normal 3.93-5.22 [facility] Comment on above: Performed By: #### C BC1 #### [place] [address] RDW SD 46.3 fl Normal 36.4-46.3 [facility] Comment on above: Performed By: #### C BC1 #### [facility] [address] [place] [address] WBC (Bld) [#/Vol] 8.27 thou/cmm Normal 3.98-10.04 [facility] Comment on above: Performed By: #### C BC1 #### [place] [address] Pap,Cyto Gynon 01-06-2019 Pap,Cyto [employer] Test performed at [place] [address] NAME: BETSY MESA REQUESTING: EKTA SANCHEZ CNM [...] 03, 2019 Page 1 of 1 Normal [facility] Comment on above: Performed By: #### T &S #### [place] [address] RPRon 01-06-2019 Reagin Ab RPR Ql (S) Non-reactive Normal Nonreactive [facility] Comment on above: Performed By: #### R MA #### [place] [address] Type and Screenon 01-06-2019 ABO group Nom (Bld) O Normal [facility] Comment on above: Performed By: #### T &S #### [place] [address] Comment Out Patient Normal [facility] Comment on above: Performed By: #### T &S #### [place] [address] RH Type Positive Normal [facility] Comment on above: Performed By: #### T &S #### [place] [address] HCG,Totalon 12-19-2018 HCG Qn 939815.0 m[IU]/mL Normal [facility] Comment on above: Result Comment: Male < or = 1 Non- female 1-3 Gestational Age: 0.2-1 Week 5 - 50 1-2 Weeks 50 - 500 2-3 Weeks 100 - 5000 3-4 Weeks 500 - 46723 4-5 weeks 1000 - 77271 5-6 weeks 16491 - 100,000 6-8 weeks 29495 - 200,000 2-3 months 85134 - 100,000 Performed By: #### H CG #### [place] [address] GROUP B BETA STREP SCREENon 08-10-2017 GROUP B BETA STREP SCREEN SPECIMEN NUMBER: [id number] Normal [facility] Comment on above: Result Comment: GROU P B BETA STREP SCREEN REPORT STATUS: FINAL SITE/TYPE: RECTAL/VAGINAL CULTURE RESULT(S): NO GROUP B STREPTOCOCCUS ISOLATEDPathology Laboratories, [facility]. [address] [place] [address]Vusqzjdzud Director: Nimesh Colon M.D.CLIA No. [id number] CAP Accreditation No. [id number] HEMOGLOBIN ELECTROPHORESISon 05-08-2017 Hemoglobin mass conc (Bld) [...] Test performed at [facility] [address] [place] [address] CLIA Number [id number] CAP Accreditation Number [id number] CBC W/AUTO DIFFon 05-04-2017 % NEUTROPHILS 61.4 [...] (RBC) 3.20 10*6/uL Low 4.00-5.50 [facility] Hematocrit (HCT) 29.0 % Low 36.0-48.0 [facility] Hemoglobin mass conc (Bld) 9.5 g/dL Low 12.0-16.0 [facility] Lymphocytes 2.6 10*3/uL Normal 0.8-5.2 [facility] Lymphocytes/100 leukocytes 29.1 % Normal [facility] MCH 29.7 pg Normal 27.0-34.0 [facility] MCHC mass conc (RBC) 32.8 g/dL Normal 31.0-36.0 [facility] MCV 90.6 fL Normal 80.-100. [facility] Monocytes 0.7 10*3/uL Normal 0.1-0.9 [facility] Monocytes/100 leukocytes 7.6 % Normal [facility] Neutrophils 5.4 10*3/uL Normal 1.3-9.1 [facility] Platelets 198 10*3/uL Normal 150.-450. [facility] WBC (Leukocytes) 8.8 10*3/uL Normal 3.7-10.8 [facility] CHLAMYDIA/N. GONORRHOEAE/T. VAGINALIS, AMPLIFIED PROBEon 05-04-2017 CHLAM TRACHOMATIS rRNA: Negative Normal NEGATIVE [facility] NEISS GONORRHOEAE rRNA Negative Normal NEGATIVE Pa [facility] SOURCE: VAGINA Normal [facility] TRICH VAGINALIS rRNA Negative Normal NEGATIVE Path [facility] Comment on above: Result Comment: Lilliana van methodology is nucleic acid amplification by hostess host mediated amplification (TMA) utilizing the Aptima Combo 2 Assay. GLUCOSEon 05-04-2017 Glucose mass conc 114 mg/dL High 70-100 [facility] Comment on above: Result Comment: DIAG NOSTIC THRESHOLDS FOR DIABETES AND IMPAIRED FASTING GLUCOSE (IFG) FASTING PLASMA GLUCOSE NORMAL <100 MG/DL IFG 100-125 MG/DL DIABETES >/= 126 MG/DL GLUCOSE, POST GLUCOLAon 10- DRAW TIME 1 HOUR POST-GLUCOLA Normal [facility] Comment on above: Result Comment: DIAG NOSTIC THRESHOLDS FOR DIABETES AND IMPAIRED GLUCOSE TOLERANCE(IGT) USING ORAL GLUCOSE TOLERANCE TEST: 2-HOUR PLASMA GLUCOSE NORMAL <140 MG/DL IGT 140-199 MG/DL DIABETES >/= 200 MG/DLPathology [facility] [address] [place], [place] [address]Laboratory Director: David Benitez M.D.IA No. [id number] [facility] Accreditation No. [id number] Glucose mass conc 108 mg/dL Normal <140 [facility] CYSTIC FIBROSIS GENOTYPE, 13 9 MUTATIONSon 04-05-2017 CF 139 INTERPRETATION Negative Normal [facility] MUTATION 1 Not Detected Normal [facility] POSITIVE FAMILY HISTORY? No Normal [facility] SOURCE Blood Normal [facility] Comment on above: Result Comment: Inte rpretation: This patient is negative for the cystic fibrosismutations analyzed, including the 23 mutations recommended forscreening by the [employer] and AmericanCollege of Obstetrics and Gynecology. This result does [...] 1 in 28 1 in 588 (0.2%)Ashkenazi Hoahaoism 1 in 29 1 in 610 (0.2%) [...] including the 23 mutations recommended by the AmericanCollege of Obstetrics and Gynecology, by next-generation sequencingusing the Illumina Endeavour Software TechnologiesDx Cystic Fibrosis assay. Reference sequenceis [id number]. The following mutations were analyzed:[id number] c.1A>G c.115C>T c.178G>Tc.200C>T c.223C>T c.254G>A c.262_263delTT c.273+1G>Ac.274-1G>A [...] c.3302T>A c.3310G>T c.3472C>Tc.3484C>T c.3528delC c.3587C>G c.3611G>A c.3612G>Ac.3659delC c.3717+31405K>T c.3731G>A c.3744delA c.3752G>Ac.3773_3774insT c.3846G>A c.3873+1G>A c.3884_3885insT c.3909C>Gc.3937C>T c.3964-78_4242+577del c.4077_4080delTGTTinsAA c.4251delAConditionally reported variants:c.1210-12T[5_9] c.1516A>G c.1519A>G c.1523T>GElectronically Signed by David Nash M.D. Test performed at [facility] Reference [address], [address] [place] [address] Laser Systems Engineer: David Nash M.D. [facility] Number [id number] CAP Accreditation Number [id number] TESTING LOCATION Normal Patholog [facility] Comment on above: Result Comment: Test performed at [address] [address] CLIA Number [id number] HEMOGLOBIN ELECTROPHORESISon 04-03-2017 Hemoglobin mass conc (Bld) [...] RUSSELL M.D. Test performed at [facility] [address] [place] [address] CLIA Number [id number] [facility] Accreditation Number [id number] QUADRUPLE SCREENING TEST WIT H INTERPRETATIONon 04-03-2017 Calc Trisomy 18 risk 1:34802 Normal Path oly [facility] DETERMINED BY: LMP Normal [facility] [...] DS/T21 risk age alone 1:1141 Normal Pat hology [facility] Neural tube defect interpreta Normal Pathology [...] a normal . Neural tube defect risk 1:42924 Normal [facility] AFP 38.8 NG/ML Normal [facility] INHIBIN A 211 PG/ML Normal [facility] Comment on above: Result Comment: Test performed at [facility] [address] [place] [address] CLIA Number [id number] [facility] Accreditation Number [id number] UE3 2.00 NG/ML Normal [facility] [...] Inc NUMBER OF GESTATIONS 1 Normal Path [facility] RACE BLACK Normal [facility] SMOKER? YES Normal [facility] TRISOMY 18 ASSESSMENT NOT INCREASED Normal [facility] Weight 78.9264 kg Normal [facility] VARICELLA ZOSTER IGGon 04-03 VARICELLA ZOSTER IGG 477 INDEX Normal SEE BELOW [facility] Comment on above: Result Comment: INTE [...] Test performed at [facility] [address] [place] [address] CLIA Number [id number] CAP Accreditation Number [id number] [facility] [address] [id number] Director: David Benitez M.D.CLIA No. [id number] [facility] Accreditation No. [id number] PROFILE 2 017 ABO group O Normal [facility] Comment on above: Result Comment: Test performed at [address] [address] CLIA NUMBER [id number] ANTIBODY SCREEN Negative Normal NEGATIVE [facility] Comment on above: Result Comment: Test performed at [address] [address] CLIA NUMBER [id number] Rh type Positive Normal [facility] Comment on above: Result Comment: Test performed at [address] [address] CLIA NUMBER [id number] URINE CULTUREon 03-30-2017 Urine culture, bacteria SPECIMEN NUMBER: [id number] Normal [facility] Comment on above: [...] NEISS GONORRHOEAE rRNA Negative Normal NEGATIVE [facility] SOURCE: VAGINA Normal [facility] TRICH VAGINALIS rRNA Positive Abnormal NEGATIVE [facility] Comment on above: Result Comment: Assa y methodology is nucleic acid amplification by hostess host mediated amplification (TMA) utilizing the Aptima Combo [...] HEPATITIS B SURFACE AG Negative Normal NEGATIVE [facility] RPR SCREEN NON-REACTIVE Normal NON-REACTIVE [facility] % NEUTROPHILS 58.5 % Normal [facility] ABS BASOPHILS 0.0 K/ul Normal 0.0-0.1 [facility] Basophils/100 WBC Auto (Bld) 0.3 % Normal [facility] Comment on above: Result Comment: MANU AL DIFFERENTIAL PERFORMED Eosinophils 0.1 10*3/uL Normal 0.1-0.4 [facility] Eosinophils/100 leukocytes 1.5 % Normal [facility] Erythrocyte distribution width Auto Ratio (RBC) 15.4 % High 10.8-14.8 [facility] Erythrocytes (RBC) 3.59 10*6/uL Low 4.00-5.50 [facility] Hematocrit (HCT) 30.9 % Low 36.0-48.0 [facility] Hemoglobin mass conc (Bld) 10.3 g/dL Low 12.0-16.0 [facility] Lymphocytes 2.2 10*3/uL Normal 0.8-5.2 [facility] Lymphocytes/100 leukocytes 32.5 % Normal [facility] MCH 28.7 pg Normal 27.0-34.0 [facility] MCHC mass conc (RBC) 33.3 g/dL Normal 31.0-36.0 [facility] MCV 86.1 fL Normal 80.-100. [facility] Monocytes 0.5 10*3/uL Normal 0.1-0.9 [facility] Monocytes/100 leukocytes 6.8 % Normal [facility] Neutrophils 3.9 10*3/uL Normal 1.3-9.1 [facility] Platelets 186 10*3/uL Normal 150.-450. [facility] WBC (Leukocytes) 6.7 10*3/uL Normal 3.7-10.8 [facility] TOTAL HCGon 03-29-2017 [place] [address].0 m[IU]/mL Normal [employer] Comment on above: Result Comment: TOTA [...] Vital Sign Value Performing Clinician Daniel alexander 03-23-2025 01:40-0400 Body temperature 99 [degF] No Primary Care Physician [facility] 03-23-2025 01:40-0400 Diastolic blood pressure 88 mm[Hg] No Primary Care Physician [facility] 03-23-2025 01:40-0400 Heart rate 80 /min No Primary Care Physician [facility] 03-23-2025 01:40-0400 Respiratory rate 16 /min No Primary Care Physician [facility] 03-23-2025 01:40-0400 SaO2% (BldA) [Mass fraction] 100 % No Primary Care Physician [facility] 03-23-2025 01:40-0400 Systolic blood pressure 128 mm[Hg] No Primary Care Physician [facility] 03-22-2025 23:22-0400 Body height 177.8 cm No Primary Care Physician [facility] 03-22-2025 23:22-0400 Body mass index (BMI) [Ratio] 34.2 kg/m2 No Primary Care Physician [facility] 03-22-2025 23:22-0400 Body weight 108.2 kg No Primary Care Physician [facility] 02-05-2025 02:56-0400 Body temperature 97.4 [degF] No Primary Care Physician [facility] 02-05-2025 02:56-0400 Diastolic blood pressure 83 mm[Hg] No Primary Care Physician [facility] 02-05-2025 02:56-0400 Heart rate 68 /min No Primary Care Physician [facility] 02-05-2025 02:56-0400 Respiratory rate 16 /min No Primary Care Physician [facility] 02-05-2025 02:56-0400 SaO2% (BldA) [Mass fraction] 99 % No Primary Care Physician [facility] 02-05-2025 02:56-0400 Systolic blood pressure 125 mm[Hg] No Primary Care Physician [facility] 02-05-2025 01:12-0400 Body height 177.8 cm No Primary Care Physician [facility] 02-05-2025 01:12-0400 Body mass index (BMI) [Ratio] 33.3 kg/m2 No Primary Care Physician [facility] 02-05-2025 01:12-0400 Body weight 105.2 kg No Primary Care Physician [facility] 01-12-2025 01:55-0400 Body temperature 98.1 [degF] No Primary Care Physician [facility] 01-12-2025 01:55-0400 Diastolic blood pressure 73 mm[Hg] No Primary Care Physician [facility] 01-12-2025 01:55-0400 Heart rate 78 /min No Primary Care Physician [facility] 01-12-2025 01:55-0400 Respiratory rate 14 /min No Primary Care Physician [facility] 01-12-2025 01:55-0400 SaO2% (BldA) [Mass fraction] 100 % No Primary Care Physician [facility] 01-12-2025 01:55-0400 Systolic blood pressure 122 mm[Hg] No Primary Care Physician [facility] 01-11-2025 21:48-0400 Body height 177.8 cm No Primary Care Physician [facility] 01-11-2025 21:48-0400 Body mass index (BMI) [Ratio] 33.3 kg/m2 No Primary Care Physician [facility] 01-11-2025 21:48-0400 Body weight 105.23 kg No Primary Care Physician [facility] 09-30-2024 11:44-0500 Diastolic Blood Pressure Non-Invasive 93 mm[Hg] MARLENA LUGODatavolution [facility] 09-30-2024 11:44-0500 Heart rate 84 /min MARLENA Poshly [facility] 09-30-2024 11:44-0500 Respiratory rate 16 /min MARLENA LUGODatavolution [facility] 09-30-2024 11:44-0500 Systolic Blood Pressure Non-Invasive 137 mm[Hg] MARLENA [facility]UG[facility] [facility] 09-30-2024 10:12-0500 Blood Pressure Location MARLENA Poshly [facility] 09-30-2024 10:12-0500 Blood Pressure Method MARLENA EZDOCTOR [facility] 09-30-2024 10:12-0500 Body temperature 97.88 [degF] MARLENA LUGODatavolution [facility] 09-30-2024 10:12-0500 Diastolic Blood Pressure Non-Invasive 78 mm[Hg] MARLENA LOWERY DO [facility] 09-30-2024 10:12-0500 Heart rate 94 /min MARLENA LOWERY DO [facility] 09-30-2024 10:12-0500 Respiratory rate 18 /min MARLENA LOWERY DO [facility] 09-30-2024 10:12-0500 Systolic Blood Pressure Non-Invasive 128 mm[Hg] MARLENA LOWERY DO [facility] 05-06-2024 15:11-0400 Body mass index (BMI) [Ratio] 30.2 kg/m2 Leela Currie MD Work Phone: [facility] 05-06-2024 15:11-0400 Body weight 96.16 kg Leela Currei MD Work Phone: [facility] 05-06-2024 15:11-0400 Diastolic blood pressure 70 mm[Hg] Leela Currie MD Work Phone: [facility] 05-06-2024 15:11-0400 Heart rate 102 /min Leela Currie MD Work Phone: [facility] 05-06-2024 15:11-0400 Respiratory rate 18 /min Leela Currie MD Work Phone: [facility] 05-06-2024 15:11-0400 Systolic blood pressure 108 mm[Hg] Leela Currie MD Work Phone: [facility] 05-01-2024 13:45-0400 Body mass index (BMI) [Ratio] 30.49 kg/m2 Jose Aranda APRN.CNM Work Phone: [facility] 05-01-2024 13:45-0400 Body weight 97.07 kg Jose Aranda APRN.CNM Work Phone: [facility] 05-01-2024 13:45-0400 Diastolic blood pressure 70 mm[Hg] Jose Aranda HAND CLOTH EXAMINER.CNM Work Phone: [facility] 05-01-2024 13:45-0400 Systolic blood pressure 108 mm[Hg] Jose Aranda HAND CLOTH EXAMINER.CNM Work Phone: [facility] 04-28-2024 11:36-0400 Body height 178.4 cm Sushil Sinclairsirena HAND CLOTH EXAMINER.SUPERVISOR [employer] Work Phone: [facility] 04-28-2024 11:36-0400 Body mass index (BMI) [Ratio] 30.72 kg/m2 Sushil Villanueva HAND CLOTH EXAMINER.SUPERVISOR [employer] Work Phone: [facility] 04-28-2024 11:36-0400 Body weight 97.8 kg Sushil Yahirsirena HAND CLOTH EXAMINER.SUPERVISOR [employer] Work Phone: [facility] 04-28-2024 11:36-0400 Diastolic blood pressure 68 mm[Hg] Sushil Villanueva HAND CLOTH EXAMINER.SUPERVISOR [employer] Work Phone: [facility] 04-28-2024 11:36-0400 Systolic blood pressure 116 mm[Hg] Sushil Villanueva HAND CLOTH EXAMINER.SUPERVISOR [employer] Work Phone: [facility] 10-14-2023 22:57-0400 Body temperature 98.4 [degF] [employer] [facility] 10-14-2023 22:57-0400 Body weight 104.326 [employer] [facility] 10-14-2023 22:57-0400 Diastolic blood pressure 88 mm[Hg] [employer] [facility] 10-14-2023 22:57-0400 Heart rate 94 /min [employer] [facility] 10-14-2023 22:57-0400 Respiratory rate 16 /min [employer] [facility] 10-14-2023 22:57-0400 SaO2% (BldA) [Mass fraction] 100 % [employer] [facility] 10-14-2023 22:57-0400 Systolic blood pressure 141 mm[Hg] [employer] [facility] 08-11-2023 13:10-0500 Body temperature 97.1 [degF] [employer] [facility] 08-11-2023 13:10-0500 Body weight 102.058 [employer] [facility] 08-11-2023 13:10-0500 Diastolic blood pressure 94 mm[Hg] [employer] [facility] 08-11-2023 13:10-0500 Heart rate 91 /min [employer] [facility] 08-11-2023 13:10-0500 Respiratory rate 16 /min [employer] [facility] 08-11-2023 13:10-0500 SaO2% (BldA) [Mass fraction] 100 % [employer] [facility] 08-11-2023 13:10-0500 Systolic blood pressure 126 mm[Hg] [employer] [facility] 05-12-2023 03:52-0400 Heart rate 104 /min [employer] [facility] 05-12-2023 03:47-0400 Body temperature 97.7 [degF] [employer] [facility] 05-12-2023 03:47-0400 Body weight 97.795 [employer] [facility] 05-12-2023 03:47-0400 Diastolic blood pressure 106 mm[Hg] [employer] [facility] 05-12-2023 03:47-0400 Respiratory rate 18 /min [employer] [facility] 05-12-2023 03:47-0400 SaO2% (BldA) [Mass fraction] 100 % [employer] [facility] 05-12-2023 03:47-0400 Systolic blood pressure 148 mm[Hg] [employer] [facility] 09-26-2022 23:37-0500 Respiratory rate 18 /min Marcelo Robles MD Work Phone: [employer] 09-26-2022 21:40-0500 SaO2% (BldA) [Mass fraction] 96 % Marcelo Robles MD Work Phone: [employer] 09-26-2022 20:45-0500 Diastolic blood pressure 93 mm[Hg] Marcelo Robles MD Work Phone: [employer] 09-26-2022 20:45-0500 Systolic blood pressure 135 mm[Hg] Marcelo Robles MD Work Phone: [employer] 09-26-2022 20:18-0500 Body height 170.2 cm Marcelo Robles MD Work Phone: [employer] 09-26-2022 20:18-0500 Body mass index (BMI) [Ratio] 33.05 kg/m2 Marcelo Robles MD Work Phone: [employer] 09-26-2022 20:18-0500 Body weight 95.71 kg Marcelo Robles MD Work Phone: [employer] 09-26-2022 20:04-0500 Body temperature 98.4 [degF] Marcelo Robles MD Work Phone: [employer] 09-26-2022 20:04-0500 Heart rate 114 /min Marcelo Robles MD Work Phone: [employer] 09-25-2022 14:15-0500 Diastolic blood pressure 81 mm[Hg] Alvin Pryor [facility] 09-25-2022 14:15-0500 Heart rate 80 /min Tod Filmer [facility] 09-25-2022 14:15-0500 Respiratory rate 16 /min Tod Filmer [facility] 09-25-2022 14:15-0500 SaO2% (BldA) [Mass fraction] 98 % Tod Filmer [facility] 09-25-2022 14:15-0500 Systolic blood pressure 123 mm[Hg] Tod Filmer [facility] 09-25-2022 12:15-0500 Body temperature 96.9 [degF] To Filmer [facility] 09-25-2022 12:15-0500 Body weight 96.61 kg Tod Filmer [facility] 03-08-2022 10:00-0400 Heart rate 87 /min JOSSIE HAYES MD [facility] 03-08-2022 10:00-0400 Mean blood pressure 100 mm[Hg] JOSSIE HAYES MD [facility] 03-08-2022 10:00-0400 Systolic blood pressure 134 mm[Hg] JOSSIE HAYES MD [facility] 03-08-2022 07:11-0400 Body temperature 98.06 [degF] JOSSIE HAYES MD [facility] 03-08-2022 07:11-0400 Diastolic blood pressure 97 mm[Hg] JOSSIE HAYES MD [facility] 03-08-2022 07:11-0400 Heart rate 81 /min JOSSIE HAYES MD [address] [place] [address] 03-08-2022 07:11-0400 Mean blood pressure 112 mm[Hg] JOSSIE HAYES MD [address] [place] [address] 03-08-2022 07:11-0400 Respiratory rate 18 /min JOSSIE HAYES MD [address] [place] [address] 03-08-2022 07:11-0400 Systolic blood pressure 141 mm[Hg] JOSSIE HAYES MD [address] [place] [address] 03-08-2022 04:43-0400 Diastolic blood pressure 83 mm[Hg] JOSSIE HAYES MD [address] [place] [address] 03-08-2022 04:43-0400 Heart rate 75 /min JOSSIE HAYES MD [address] [place] [address] 03-08-2022 04:43-0400 Mean blood pressure 101 mm[Hg] JSOSIE HAYES MD [address] [place] [address] 03-08-2022 04:43-0400 Respiratory rate 16 /min JOSSIE HAYES MD [address] [place] [address] 03-08-2022 04:43-0400 Systolic blood pressure 136 mm[Hg] JOSSIE HAYES MD [address] [place] [address] 03-07-2022 23:00-0400 Body temperature 98.42 [degF] JOSSIE HAYES MD [address] [place] [address] 03-07-2022 23:00-0400 Respiratory rate 16 /min JOSSIE HAYES MD [address] [place] [address] 03-07-2022 16:57-0400 Body temperature 98.6 [degF] JOSSIE HAYES MD [address] [place] [address] 03-05-2022 10:05-0400 Body height 177.8 cm JOSSIE HAYES MD [address] [place] [address] 03-05-2022 10:05-0400 Body weight 109.1 kg JOSSIE HAYES MD [facility] 03-05-2022 10:05-0400 Body weight 34.51 kg/m2 JOSSIE HAYES MD [facility] 01-18-2022 03:00-0400 Body temperature 98.06 [degF] MICHI VASSAS DO [facility] 01-18-2022 03:00-0400 Diastolic blood pressure 64 mm[Hg] MICHI VASSAS DO [facility] 01-18-2022 03:00-0400 Heart rate 79 /min MICHI VASSAS DO [facility] 01-18-2022 03:00-0400 Mean blood pressure 83 mm[Hg] MICHI VASSAS DO [facility] 01-18-2022 03:00-0400 Respiratory rate 16 /min MICHI VASSAS DO [facility] 01-18-2022 03:00-0400 Systolic blood pressure 120 mm[Hg] MICHI VASSAS DO [facility] 01-17-2022 23:00-0400 Body temperature 97.88 [degF] MICHI VASSAS DO [facility] 01-17-2022 23:00-0400 Diastolic blood pressure 79 mm[Hg] MICHI VASSAS DO [facility] 01-17-2022 23:00-0400 Heart rate 98 /min MICHI VASSAS DO [facility] 01-17-2022 23:00-0400 Mean blood pressure 94 mm[Hg] MICHI VASSAS DO [facility] 01-17-2022 23:00-0400 Respiratory rate 14 /min MICHI VASSAS DO [facility] 01-17-2022 23:00-0400 Systolic blood pressure 123 mm[Hg] MICHI VASSAS DO [facility] 01-17-2022 19:30-0400 Body temperature 98.06 [degF] MICHI VASSAS DO [facility] 01-17-2022 19:30-0400 Diastolic blood pressure 60 mm[Hg] MICHI VASSAS DO [facility] 01-17-2022 19:30-0400 Heart rate 99 /min MICHI VASSAS DO [facility] 01-17-2022 19:30-0400 Mean blood pressure 79 mm[Hg] MICHI VASSAS DO [facility] 01-17-2022 19:30-0400 Respiratory rate 16 /min MICHI VASSAS DO [facility] 01-17-2022 19:30-0400 Systolic blood pressure 118 mm[Hg] MICHI VASSAS DO [facility] 01-17-2022 17:06-0400 Body height 177.8 cm MICHI VASSAS DO [facility] 01-17-2022 17:06-0400 Body weight 110 kg MICHI VASSAS DO [facility] 01-17-2022 17:06-0400 Body weight 34.8 kg/m2 MICHI VASSAS DO [facility] 01-17-2022 14:42-0400 Body height 177.8 cm MICHI VASSAS DO [facility] 01-17-2022 14:42-0400 Body weight 110 kg MICHI VASSAS DO [facility] 01-17-2022 14:42-0400 Body weight 34.8 kg/m2 MICHI VASSAS DO [facility] 12-06-2021 15:54-0400 Body height 177.8 cm GATITO ODOM DO [facility] 12-06-2021 15:54-0400 Body weight 114 kg GATITO ODOM DO [facility] 12-06-2021 15:54-0400 Body weight 36.06 kg/m2 [facility] 08-07-2021 16:36-0500 Body temperature 98.06 [degF] NANDA TOLEDO DO [facility] 08-07-2021 16:36-0500 Diastolic blood pressure 87 mm[Hg] NANDA TOLEDO DO [facility] 08-07-2021 16:36-0500 Heart rate 95 /min NANDA TOLEDO DO [facility] 08-07-2021 16:36-0500 Respiratory rate 16 /min NANDA TOLEDO DO [facility] 08-07-2021 16:36-0500 Systolic blood pressure 129 mm[Hg] NANDA TOLEDO DO [facility] 05-18-2021 12:24-0400 Body temperature 98.24 [degF] DR JOSÉ MIGUEL MAGALLANES MD [facility] 05-18-2021 12:24-0400 Diastolic blood pressure 64 mm[Hg] DR JOSÉ MIGUEL MAGALLANES MD [facility] 05-18-2021 12:24-0400 Heart rate 78 /min DR JOSÉ MIGUEL MAGALLANES MD [facility] 05-18-2021 12:24-0400 Respiratory rate 18 /min DR JOSÉ MIGUEL MAGALLANES MD [facility] 05-18-2021 12:24-0400 Systolic blood pressure 103 mm[Hg] DR JOSÉ MIGUEL MAGALLANES MD [facility] 03-15-2021 22:43-0400 Diastolic blood pressure 77 mm[Hg] [facility] Work Phone: 08-17-2021 22:43-0400 Heart rate 97 /min [employer] Work Phone: 03-15-2021 22:43-0400 Respiratory rate 16 /min [facility] Work Phone: 03-15-2021 22:43-0400 SaO2% (BldA) [Mass fraction] 99 % [employer] Work Phone: 03-15-2021 22:43-0400 Systolic blood pressure 127 mm[Hg] [facility] Work Phone: 03-15-2021 20:21-0400 Body temperature 97.81 [degF] [facility] Work Phone: 03-15-2021 20:20-0400 Body height 177.8 cm [facility] Work Phone: 03-15-2021 20:20-0400 Body mass index (BMI) [Ratio] 25.83 kg/m2 [employer] Work Phone: 03-15-2021 20:20-0400 Body weight 81.65 kg [facility] Work Phone: 03-07-2021 02:39-0400 Diastolic blood pressure 80 mm[Hg] Isreal Kincaid MD Work Phone: [facility] Work Phone: 03-07-2021 02:39-0400 Heart rate 99 /min Isreal Kincaid MD Work Phone: [facility] Work Phone: 03-07-2021 02:39-0400 Respiratory rate 16 /min Isreal Kincaid MD Work Phone: [facility] Work Phone: 03-07-2021 02:39-0400 SaO2% (BldA) [Mass fraction] 100 % Isreal Kincaid MD Work Phone: [facility] Work Phone: 03-07-2021 02:39-0400 Systolic blood pressure 113 mm[Hg] [facility] Work Phone: 03-07-2021 02:04-0400 Body height 177.8 cm Isreal Kincaid MD Work Phone: [facility] Work Phone: 03-07-2021 02:04-0400 Body mass index (BMI) [Ratio] 25.83 kg/m2 Isreal Kincaid MD Work Phone: [facility] Work Phone: 03-07-2021 02:04-0400 Body weight 81.65 kg Isreal Kincaid MD Work Phone: [facility] Work Phone: 03-07-2021 00:27-0400 Body temperature 98.4 [degF] Isreal Kincaid MD Work Phone: [facility] Work Phone: Encounters Encounter Date Encounter Type Care Provider Facility Start: 04-17-2025 End: 04-17-2025 ambulatory ARLINE CORADO HAND CLOTH EXAMINER-SUPERVISOR [employer] Facility:[facility] Start: 04-17-2025 End: 04-17-2025 Patient encounter procedure ARLINE CORADO HAND CLOTH EXAMINER-SUPERVISOR [employer] [facility] Start: 03-22-2025 End: 03-23-2025 Emergency department patient visit No Primary Care Physician -Emergency Department Work Phone: Start: 03-22-2025 End: 03-22-2025 Emergency department patient visit PAMELA MEZA MD Facility:D Start: 03-10-2025 End: 03-10-2025 ambulatory ARLINE CORADO HAND CLOTH EXAMINER-SUPERVISOR [employer] Facility:A Start: 03-09-2025 End: 03-10-2025 Emergency department patient visit ARLINE CORADO Facility:[id number] Start: 02-18-2025 End: 02-18-2025 Emergency department patient visit DR MARIANNA BOYKIN MD [facility] Start: 02-18-2025 End: 02-18-2025 Emergency department patient visit DR MARIANNA BOYKIN MD Facility:[facility] Start: 02-05-2025 End: 02-05-2025 Emergency department patient visit No Primary Care Physician -Emergency Department Work Phone: Start: 01-11-2025 End: 01-12-2025 Emergency department patient visit No Primary Care Physician -Emergency Department Work Phone: Start: 09-30-2024 End: 09-30-2024 Emergency department patient visit MARLENA LOWERY DO [facility] Start: 09-03-2024 ambulatory ARLINE GOODWIN HAND CLOTH EXAMINER-SUPERVISOR [employer] Facility:[facility] Start: 08-22-2024 End: 08-22-2024 ambulatory ARLINE CORADO HAND CLOTH EXAMINER-SUPERVISOR [employer] Facility: Start: 08-11-2024 Emergency department patient visit ARLINE CORADO Facility:[id number] Start: 08-08-2024 End: 08-08-2024 Emergency department patient visit No Primary Care Physician Facility:[facility] Start: 07-17-2024 End: 07-17-2024 Emergency department patient visit Oseas Aviles Facility:[facility] Start: 07-12-2024 End: 07-12-2024 Emergency department patient visit No Primary Care Physician Facility:[facility] Start: 06-16-2024 End: 06-16-2024 Emergency department patient visit Nelson Ulloa Facility:[facility] Start: 05-18-2024 End: 05-18-2024 Emergency department patient visit No Primary Care Physician Facility:[facility] Start: 05-08-2024 End: 05-08-2024 Emergency department patient visit Nelson Ulloa Facility:[facility] Start: 05-06-2024 End: 05-06-2024 Patient encounter procedure Leela Currie MD Work Phone: OB/Gynecology Comment on above: Incomplete (Primary Dx); Threatened miscarriage Start: 05-06-2024 End: 05-06-2024 ambulatory SUSHIL VILLANUEVA Facility:[facility] Start: 05-05-2024 End: 05-05-2024 Emergency department patient visit ARLINE CORADO HAND CLOTH EXAMINER-SUPERVISOR [employer] Facility:A Start: 05-02-2024 End: 05-07-2024 Telephone encounter Jose Rosi [facility]ICE Work Phone: OB/Gynecology Comment on above: Results Start: 05-01-2024 End: 05-01-2024 ambulatory SUSHIL COLBY OB/Gynecology Start: 05-01-2024 End: 05-01-2024 Patient encounter procedure Jose Aranda CNErick Work Phone: OB/Gynecology Comment on above: Positive t est (Primary Dx); Threatened miscarriage; with uncertain dates in first trimester; Spotting affecting in first trimester Start: 04-28-2024 End: 04-28-2024 ambulatory SUSHILARLENE SINCLAIRSIRENA Facility:[facility] Start: 04-28-2024 End: 04-28-2024 Patient encounter procedure Sushil Sinclairsirena LANIER.SUPERVISOR [employer] Work Phone: OB/Gynecology Comment on above: with uncer tain viability, single or unspecified fetus (Primary Dx); with uncertain dates in first trimester Start: 04-05-2024 End: 04-05-2024 ambulatory No Primary Care Physician Facility:[facility] Start: 04-03-2024 End: 04-03-2024 Emergency department patient visit No Primary Care Physician Facility:[facility] Start: 03-15-2024 End: 03-19-2024 ambulatory HIRA LANGLEY MD Facility:A Start: 03-15-2024 End: 03-15-2024 ambulatory HIRA LANGLEY MD Facility:A Start: 02-19-2024 End: 02-19-2024 ambulatory ARLINE CORADO HAND CLOTH EXAMINER-SUPERVISOR [employer] Facility:[facility] Start: 02-19-2024 End: 02-19-2024 Patient encounter procedure ARLINE CORADO HAND CLOTH EXAMINER-SUPERVISOR [employer] [facility] Start: 02-05-2024 End: 02-09-2024 ambulatory ABDI LONDON HAND CLOTH EXAMINER-SUPERVISOR [employer] Facility:A Start: 01-29-2024 End: 01-29-[address] JOSÉ MIGUEL MAGALLANES MD Facility:A Start: 01-15-2024 End: 01-15-2024 ambulatory MARCELO ISBELL DO Facility:A Start: 01-01-2024 End: 01-05-2024 ambulatory ERLINDA WILLINGHAM PA-C Facility:A Start: 01-01-2024 End: 01-01-2024 ambulatory ERLINDA WILLINGHAM PA-C Facility:A Start: 12-09-2023 Emergency department patient visit Facility:[facility] Start: 12-09-2023 Admission to [facility] Gila Roth MD Work Phone: Neurosurgery Comment on above: Numbness (Primary Dx ) Start: 12-09-2023 Telemedicine consultation with patient Gila Roth MD Work Phone: Neurosurgery Start: 12-04-2023 End: 12-04-[address] JOSÉ MIGUEL MAGALLANES MD Facility:A Start: 12-04-2023 End: 12-08-[address] JOSÉ MIGUEL MAGALLANES MD Facility:[facility] Start: 11-19-2023 End: 11-19-2023 ambulatory ABDI LONDON HAND CLOTH EXAMINER-SUPERVISOR [employer] Facility:A Start: 11-05-2023 End: 11-05-[address] JOSÉ MIGUEL MAGALLANES MD Facility:A Start: 10-14-2023 End: 10-15-2023 Emergency department patient visit [employer] [facility] Start: 08-29-2023 End: 08-29-2023 ambulatory ERLINDA WILLINGHAM PA-C Facility:A Start: 08-11-2023 End: 08-11-2023 Emergency department patient visit [employer] [facility] Start: 05-12-2023 End: 05-12-2023 Emergency department patient visit [employer] [facility] Start: 02-13-2023 End: 02-13-2023 Emergency department patient visit [employer] [facility] Start: 09-26-2022 End: 09-27-2022 Emergency department patient visit MARCELO ROBLES [facility] Start: 09-26-2022 End: 09-26-2022 Emergency department patient visit Marcelo Robles MD Work Phone: [facility] ED Comment on above: Hypertension, unspec ified type (Primary Dx) Start: 09-25-2022 End: 09-25-2022 Emergency department patient visit Alvin Pryor [facility] Start: 03-05-2022 End: 03-08-2022 Evaluation and management of inpatient JOSSIE HAYES MD [facility] Start: 01-17-2022 End: 01-18-2022 Observation MICHI LEONARD DO [facility] Start: 12-26-2021 End: 12-26-2021 Subsequent hospital visit by physician ANNA GARCÍA Comment on above: RT LOWER LEG PAIN/TR IAGE Start: 12-06-2021 End: 12-06-2021 Patient encounter procedure GATITO ODOM DO [facility] Start: 11-29-2021 End: 11-29-2021 ambulatory NONE NONE Facility:[facility] Start: 08-07-2021 End: 08-07-2021 Emergency department patient visit NANDA TOLEDO DO [facility] Start: 05-18-2021 End: 05-18-2021 Emergency department patient visit DR JOSÉ MIGUEL MAGALLANES MD [facility] Start: 03-15-2021 End: 03-15-2021 Emergency department patient visit [facility] Emergency Dept Comment on above: Cough (Primary Dx); Vaginal discharge Start: 03-07-2021 End: 03-07-2021 Emergency department patient visit Isreal Kincaid MD Work Phone: [facility] Emergency Dept Comment on above: Ecstasy abuse (HCC) (Primary Dx); Acute cystitis with hematuria Procedures Date Procedure Procedure Detail Performing Clinician Start: 03-22-2025 Estimated creatinine clearance No Primary Care Physician Start: 02-05-2025 CT of head without contrast No Primary Care Physician Start: 01-11-2025 CT of head without contrast No Primary Care Physician Start: 01-11-2025 Estimated creatinine clearance No Primary Care Physician Start: 05-01-2024 Us pelvic nonobstetr ic real-time image complete Sushil Villanueva APRN.[employer] Work Phone: Start: 04-28-2024 Antibody screen SUSHIL H BRIONNA Comment on above: Order Comment: Speci men Type: BLOOD SPECIMEN Ordering Facility: [facility] Address: [address] [place] [address] Performed By: #### T SPN #### [facility] CLIA [id number] [address] [place] [address] [place] Start: 04-28-2024 Us uterus l imited 1/> fetuses Sushil Villanueva APRN.[employer] Work Phone: Start: 10-14-2023 Microscopic urinalysis [employer] Start: 08-11-2023 Lumbar puncture usin g fluoroscopic guidance [employer] Start: 08-11-2023 Microscopic urinalysis [employer] Start: 05-12-2023 CT of head without contrast [employer] Start: 05-12-2023 Lumbar puncture usin g fluoroscopic guidance [employer] Start: 05-12-2023 Microscopic urinalysis [employer] Start: 02-13-2023 Plain chest X-ray On Ca ll Start: 02-13-2023 Ultrasonography of deep vein [employer] Start: 09-26-2022 Ct thorax w/contrast material Serena Kelly DO Work Phone: Start: 09-26-2022 End: 09-26-2022 Basic metabolic panel calcium total Serena Kelly DO Work Phone: Start: 09-25-2022 Plain chest X-ray Alvin dennis Start: 09-25-2022 US scan venography o f upper limbs Tod Filmer Start: 03-15-2021 Radiologic exam ches t single view Carlitosalesia English HAND CLOTH EXAMINER - [facility] Work Phone: Start: 03-07-2021 Urnls dip stick/tabl et rgnt auto w/o microscopy Sherin Dawkins HAND CLOTH EXAMINER - [facility] Work Phone: Start: 03-07-2021 Basic metabolic pane l calcium total Sherin Dawkins HAND CLOTH EXAMINER - [facility] Work Phone: Start: 03-07-2021 Ecg routine ecg w/le ast 12 lds w/i&r Isreal Kincaid MD Work Phone: Start: 01-06-2019 Antibody screen Comment on above: Performed By: #### T &S #### [place] [address] None (qualifier value) DR CARROLL MAGALLANES MD Plan of Treatment Date Care Activity Detail Author Start: 2070 RSV Vaccine (1 - 1-d ose 75+ series) RSV Vaccine (1 - 1-dose 75+ series) [facility] Start: 06-18-2029 Urine microalbumin profile DTaP,Tdap,Td Vaccine (9 - Td or Tdap) [facility] Start: 03-23-2025 [facility] Start: 02-05-2025 [facility] Start: 02-05-2025 CT of head without contrast Brain/Head without Contrast [facility] Start: 02-05-2025 CT Unspecified body region WO contrast [facility] Start: 01-12-2025 [facility] Start: 05-29-2024 DTaP/Tdap/Td vaccine (2 - Td or Tdap) DTaP/Tdap/Td vaccine (2 - Td or Tdap) [facility] Start: 05-26-2024 End: 05-26-2024 Patient encounter procedure 05/26/2024 1:10 PM EDT Routine Office Visit OB/Gynecology [address] [place] [address] Cheryl Ricardo MD [address] [place] [address] NEw OB LMP 02/19 ?? OB/Gynecology Comment on above: NEw OB LMP 02/19 ?? Start: 05-14-2024 End: 05-14-2024 Patient encounter procedure 05/14/2024 1:30 PM EDT Office Visit OB/Gynecology [address] [place], [place] [address] Leela Currie MD [address] [place] [address] IPAS f/u OB/Gynecology Comment on above: IPAS f/u Start: 05-06-2024 End: 05-06-2024 Patient encounter procedure 05/06/2024 2:30 PM EDT Routine Office Visit OB/Gynecology [address] [place], [place] [id number] Leela Currie MD [address] [place], [place] [id number] OB Routine OB/Gynecology Comment on above: OB Routine Start: 05-06-2024 End: 08-05-2024 CBC panel - Blood by Automated count COMPLETE BLOOD COUNT Lab Routine Threatened miscarriage Expected: 05/06/2024, Expires: 08/05/2024 [facility] Work Phone: Comment on above: Expected: 05/06/2024 , Expires: 08/05/2024 Start: 05-01-2024 End: 05-01-2024 Patient encounter procedure 05/01/2024 1:30 PM EDT Office Visit OB/Gynecology [address] [place], [place] [id number] Jose Aranda APRN.CN [address] [place], [place] [id number] US follow up OB/Gynecology Comment on above: US follow up Start: 05-01-2024 End: 05-01-2024 ambulatory 05/01/2024 1:00 PM EDT Procedure OB/Gynecology [address] [place] [address] with uncertain dates in first trimester [Z34.91] OB/Gynecology Comment on above: with uncer tain dates in first trimester [Z34.91] Start: 04-28-2024 End: 07-28-2024 Hemoglobin A1c in Blood [facility] Comment on above: Expected: 04/28/2024 , Expires: 07/28/2024 Start: 04-28-2024 End: 07-28-2024 TYPE + SCREEN [facility] Comment on above: Expected: 04/28/2024 , Expires: 07/28/2024 Start: 04-28-2024 End: 04-28-2025 US Pelvis PELVIC US [facility] Anc Imaging Routine with uncertain dates in first trimester Expected: 04/28/2024, Expires: 04/28/2025 [facility] Comment on above: Expected: 04/28/2024 , Expires: 04/28/2025 Start: 03-30-2024 Covid-19 Vaccine ( season) Covid-19 Vaccine ( season) [facility] Start: 03-30-2024 Influenza vaccination C [facility] Start: 07-30-2023 Behavioral Health Screening Behavioral Health Screening [facility] Start: 05-12-2023 Bacteria identified in Urine by Culture Urine Culture [facility] Start: 03-30-2023 Covid-19 Vaccine ( season) Covid-19 Vaccine ( season) [facility] Start: 03-30-2022 Influenza vaccination INFLUENZ A (Season Ended) [facility] Start: 02-27-2022 Influenza vaccination Flu vaccine (# 1) [facility] Start: 01-06-2022 PAP TESTING PAP TESTING [facility] Start: 01-06-2022 Screening for malign ant neoplasm of cervix [facility] Start: 03-30-2021 Influenza vaccination Flu vaccine (# 1) [facility] Work Phone: Start: 2016 Screening for malign ant neoplasm of cervix Pap smear [facility] Start: 2014 Urine microalbumin profile DTAP,TDAP,TD (1 - Tdap) [facility] Start: 2013 Anxiety Screening Anxiety Screening [facility] Start: 2013 Depression Screening Depression Scre ening [facility] Start: 2013 Hepatitis C screening Hepatitis C sc reen [facility] Start: 11-11-2012 HPV Vaccine (2 - 3-d ose series) HPV Vaccine (2 - 3-dose series) [facility] Start: 2010 HIV screening HIV screen [facility] Start: 2009 PEDS TO ADULT TRANSITION ANNUAL ASSESSMENT PEDS TO ADULT TRANSITION ANNUAL ASSESSMENT [facility] Start: 2007 Adult depression screening assessment DEPRESSION SCREENING [facility] Start: 2007 COVID-19 Vaccine (1) COVID-19 Vaccin e (1) [facility] Work Phone: Start: 2007 Depression Screen Depression Screen [facility] Start: 2007 PEDS TO ADULT TRANSITION INITIAL DISCUSSION PEDS TO ADULT TRANSITION INITIAL DISCUSSION [facility] Start: 2006 HPV VACCINE (1 - 2-d ose series) HPV VACCINE (1 - 2-dose series) [facility] Start: 2001 PNEUMOCOCCAL (1 - PCV) PNEUMOCOCCAL (1 - PCV) [facility] Start: 2000 COVID-19 VACCINE (#1) COVID-19 VACCI NE (#1) [facility] Start: 1996 Varicella vaccine (1 of 2 - 2-dose childhood series) Varicella vaccine (1 of 2 - 2-dose childhood series) [facility] Start: 1995 COVID-19 Vaccine (#1) COVID-19 Vacci ne (#1) [facility] Bacteria identified in Urine by Culture URINE CULTURE Microbiology Routine with uncertain dates in first trimester 04/28/2024 12:14 PM EDT [facility] End: 03-15-2021 C. Trachomatis / N. Gonorrhoeae, [...] for 8 Occurrences starting 04/28/2024 until 04/28/2025 [facility] Work Phone: Comment on above: 2x per week for 8 Oc currences starting 04/28/2024 until 04/28/2025 Choriogonadotropin.b eta subunit [Units/volume] in Serum or Plasma HCG QUANTITATIVE Lab Routine with uncertain dates in first trimester 04/28/2024 12:12 PM EDT [facility] EKG 12 Lead EKG 12 Lead ECG STAT 03/07/2021 12:24 AM EDT [facility] Work Phone: Patient Education [facility] Patient referral [facility] Work Phone: End: 03-15-2021 Respiratory Panel, Molecular, [...] Routine Threatened miscarriage 05/06/2024 4:56 PM EDT [facility] Immunizations Immunization Date Immunization Notes Care Provider Jaya hernandez 06-18-2019 tetanus toxoid, redu jose diphtheria toxoid, and acellular pertussis vaccine, adsorbed ARLINE 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 HAND CLOTH 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-[employer]PER[employer]OR [employer] [facility] 02-18-2019 hepatitis A vaccine, adult dosage ARLINE MICKIE HAND CLOTH EXAMINER-[employer] [facility] 05-31-2014 pneumococcal polysaccharide vaccine, [address] JOSÉ MIGUEL MAGALLANES MD [facility] 05-29-2014 tetanus toxoid, redu jose diphtheria toxoid, and acellular pertussis vaccine, adsorbed DR JOSÉ MIGUEL MAGALLANES MD [facility] 10-14-2012 hepatitis A vaccine, pediatric dosage, unspecified formulation ARLINE MICKIE HAND CLOTH EXAMINER-[employer]PER[employer] [facility] 10-14-2012 Human Papillomavirus Quadval ARLINE MICKIE HAND CLOTH EXAMINER-[employer]PER[employer] [facility] 10-14-2012 meningococcal polysaccharide (groups A, C, Y and W-135) diphtheria toxoid conjugate vaccine (MCV4P) ARLINE MICKIE HAND CLOTH EXAMINER-[employer]PER[employer] [facility] 10-14-2012 tetanus toxoid, redu jose diphtheria toxoid, and acellular pertussis vaccine, adsorbed ARLINE MICKIE HAND CLOTH EXAMINER-[employer] [facility] 03-21-2000 measles/mumps/rubell a virus vaccine ARLINE MICKIE HAND CLOTH EXAMINER-[employer]PER[employer] [facility] 03-21-2000 poliovirus vaccine, inactivated ARLINE MICKIE HAND CLOTH EXAMINER-[employer] [facility] 04-06-1998 hepatitis B pediatri c vaccine ARLINE MICKIE HAND CLOTH EXAMINER-[employer] [facility] 01-28-1997 measles/mumps/rubell a virus vaccine ARLINE MICKIE HAND CLOTH EXAMINER-[employer]PER[employer] [facility] 01-28-1997 poliovirus vaccine, inactivated ARLINE MICKIE HAND CLOTH EXAMINER-[employer]PER[employer] [facility] 1995 hepatitis B pediatri c vaccine ARLINE MICKIE HAND CLOTH EXAMINER-[employer]PER[employer] [facility] 1995 hepatitis B pediatri c vaccine ARLINE MICKIE HAND CLOTH EXAMINER-[employer]PER[employer] [facility] 1995 poliovirus vaccine, inactivated ARLINE MICKIE HAND CLOTH EXAMINER-[employer]PER[employer] [facility] 1995 poliovirus vaccine, inactivated ARLINE MICKIE HAND CLOTH EXAMINER-[employer]PER[employer] [facility] 1995 hepatitis B pediatri c vaccine ARLINE MICKIE HAND CLOTH EXAMINER-[employer]PER[employer] [facility] 1995 hepatitis B pediatri c vaccine ARLINE MICKIE HAND CLOTH EXAMINER-[employer]PER[employer] [facility] Payers Date Payer Category Payer Private Health Insurance [id number] 2023 Medicaid [id number] 2023 Private Health Insurance [id number] 2020 Private Health Insurance [facility] [id number] 2020-Present [phone] [address] [place] [id number]. [id number] 2018 Medicaid [facility] MEDICAID [facility] [employer] MEDICAID [id number] 2018-Present [phone] [address] [place] [address] Medicaid [id number]. [id number] 1995 Unknown [id number] 2.16840.1.391127.3.579.2. 419 1995 Unknown [id number] 2.840.1.299611.3.579.2. 1995 Unknown [id number] 2.0.1.093415.3.579.2. 1995 Unknown [id number] 2.840.1.943432.3.579.2. 1995 Unknown [id number] 2.840.1.439595.3.579.2. 1995 Unknown [id number] 2.840.1.871165.3.579.2. 627 1995 Unknown [id number] 2840.1.153117.3.579.2. 1995 Unknown [id number] 2.840.1.139113.3.579.2. 62 1995 Unknown [id number] 2.840.1.007377.3.579.2. 1995 Unknown [id number] 2.840.1.855175.3.579.2. 62 1995 Unknown [id number] 2.840.1.966269.3.579.2. 62 1995 Unknown [id number] 2.16840.1.122231.3.579.2. 627 1995 Unknown [id number] .840.1.899592.3.579.2. 1995 Unknown [id number] .840.1.169536.3.579.2. 1995 Unknown [id number] .840.1.947138.3.579.2. 1995 Unknown [id number] .840.1.389762.3.579.2. 1995 Unknown [id number] 840.1.437313.3.579.2. 1995 Unknown [id number] 840.1.520863.3.579.2. 1995 Unknown [id number] 840.1.357760.3.579.2. 1995 Unknown [id number] 840.1.321317.3.579.2. 1995 Unknown [id number] 09.14.830.1.874539.3.579.2. 1995 Unknown [id number] 840.1.692688.3.579.2. 1995 Unknown [id number] 840.1.820659.3.579.2. 1995 Unknown [id number] 840.1.878808.3.579.2. 627 1959 Self-pay Unknown [id number] 840.1.217608.3.579.2. 630 Unknown [id number] 840.1.359145.3.579.2. 630 Unknown [id number] 2840.1.047781.3.579.2. 630 Unknown [id number] 2.16.840.1.368309.3.579.2. 630 Unknown [id number] 2.16.840.1.126124.3.579.2. 462 Unknown [id number] 2.16.840.1.799368.3.579.2. 462 Unknown [id number] 2.16.840.1.008554.3.579.2. 462 Unknown [id number] 2.16.840.1.971871.3.579.2. 462 Unknown [id number] 2.16.840.1.072604.3.579.2. 462 Unknown [id number] 2.16.840.1.491541.3.579.2. 462 Unknown [id number] 2.16.840.1.169992.3.579.2. 462 Unknown [id number] 2.16.840.1.069993.3.579.2. 462 Unknown [id number] 2.16.840.1.346204.3.579.2. 462 Unknown [id number] 2.16.840.1.049829.3.579.2. 462 Unknown [id number] 2.16.840.1.497210.3.579.2. 462 Social History Date Type Detail Facility Start: 02-19-2018 End: 09-10-2018 Tobacco smoking status [facility] Never smoker [facility] Start: 09-10-2018 End: 06-24-2023 Tobacco use and exposure Never used [facility] Start: 09-10-2018 End: 05-01-2024 Alcohol intake Current drinker of alcohol (finding) [facility] Work Phone: Start: 1995 Sex Assigned At Not on file [facility] Work Phone: Start: 09-16-2022 End: 09-26-2022 Exposure to SARS-CoV-2 (event) Not sure [facility] Start: 05-19-2020 End: 08-22-2024 Light tobacco smoker (finding) [facility] Sex Assigned At [facility] Start: 12-19-2018 End: 03-22-2025 Tobacco smoking status NHIS Smokes tobacco daily [facility] Start: 10-22-2019 Alcohol intake Ex-drinker (finding) [facility] Start: 01-17-2022 End: 01-11-2025 Tobacco smoking status Ex-smoker (finding) [facility] History of tobacco use Current smoker [facility] History of tobacco use Cigarette Smoker [facility] Start: 06-24-2023 End: 04-28-2024 History of Social function [facility] Start: 06-24-2023 End: 04-28-2024 Tobacco use panel [facility] National Score (1-10 0), lower number is lower risk 75 [facility] Start: 06-08-2023 Alcohol Comment socially [facility] Has the [employer], or [employer] threatened to shut off services in your home in past 12Mo No [facility] (I/We) worried cailin (my/our) food would run out before (I/we) got money to buy more. Never true [facility] Start: 12-20-2013 Sex Female (finding) [facility] Start: 1995 Sex Assigned At Female W [facility] Medical Equipment Procedure Code Equipment Code Equipment Origin al Text Equipment Identifier Dates TEST BLOOD SUGAR EVERY DAY Start: 2024 See Instructions , check BS daily, # 100 EA, 5 Refill(s), Pharmacy: [facility] #[id number], Type 2 diabetes mellitus, 178, cm, 03/15/24 14:17:00 EDT, Height, 104.8, kg, 03/15/24 14:17:00 EDT, Dosing Weight Start: 04-18-2024 See Instructions , BD VENANCIO 2 GEN PEN NDL [id number], # 100 EA, 5 Refill(s), Pharmacy: [facility] #[id number], 178, cm, 03/15/24 14:17:00 EDT, Height, 97, kg, 05/05/24 17:35:00 EDT, Dosing Weight Start: 05-12-2024 See Instructions , test BS daily, # 100 EA, 5 Refill(s), Pharmacy: [facility] #[id number], 177.8, cm, 02/19/24 15:03:00 EDT, Height, 93, kg, 02/05/24 15:51:00 EDT, Dosing Weight Start: 03-05-2024 See Instructions , check BS daily, # 100 EA, 5 Refill(s), Pharmacy: [facility] #[id number], Type 2 diabetes mellitus, 178, cm, 03/15/24 14:17:00 EDT, Height, 104.8, kg, 03/15/24 14:17:00 EDT, Dosing Weight Start: 04-18-2024 See Instructions , BD VENANCIO 2 GEN PEN NDL [id number], # 100 EA, 5 Refill(s), Pharmacy: [facility] #[id number], 178, cm, 03/15/24 14:17:00 EDT, Height, 97, kg, 05/05/24 17:35:00 EDT, Dosing Weight Start: 05-12-2024 See Instructions , test BS daily, # 100 EA, 5 Refill(s), Pharmacy: [facility] #[id number], 177.8, cm, 02/19/24 15:03:00 EDT, Height, 93, kg, 02/05/24 15:51:00 EDT, Dosing Weight Start: 03-05-2024 See Instructions , check BS daily, # 100 EA, 5 Refill(s), Pharmacy: [facility] #[id number], Type 2 diabetes mellitus, 178, cm, 03/15/24 14:17:00 EDT, Height, 104.8, kg, 03/15/24 14:17:00 EDT, Dosing Weight Start: 04-18-2024 See Instructions , BD VENANCIO 2 GEN PEN NDL [id number], # 100 EA, 5 Refill(s), Pharmacy: [facility] #[id number], 178, cm, 03/15/24 14:17:00 EDT, Height, 97, kg, 05/05/24 17:35:00 EDT, Dosing Weight Start: 05-12-2024 See Instructions , test BS daily, # 100 EA, 5 Refill(s), Pharmacy: [facility] #[id number], 177.8, cm, 02/19/24 15:03:00 EDT, Height, 93, kg, 02/05/24 15:51:00 EDT, Dosing Weight Start: 03-05-2024 Functional Status Date Assessment Result Facility 09-30-2024 Functional Status Independent [facility] 09-30-2024 Functional Status ID band on, Allergy Band on, Call device within reach, Bed in low position, Wheels locked, Upper/Half-Length side-rails up, Visitor at bedside, Safety level maintained [facility] 03-08-2022 Functional Status Sitting in bed , Remains in NICU [facility] 03-08-2022 Functional Status [facility] 03-08-2022 Functional Status [facility] 2022 Functional Status [facility] 03-05-2022 Functional Status [facility] 03-05-2022 Functional Status [facility] 01-18-2022 Functional Status Ambulation in Room [facility] 01-17-2022 Functional Status Home independently [facility] 01-17-2022 Functional Status Rooming in [facility] 01-17-2022 Functional Status [facility] Mental Status Date Assessment Result Facility 03-22-2025 Cognitive function Level Of Cons ciousness Awake;Alert;Appropriate;Follow s Commands [facility] Work Phone: 01-11-2025 Cognitive function Voice/Name [facility] Work Phone: 09-30-2024 Mental Status Orientation Oriented x 4 [facility] 09-30-2024 Mental Status [facility] Clinical Notes 03-07-2021 to 03-24-2025 Note Date & Type Note Facility 03-24-2025 Note . MICRO - Microbiology PROCEDURE: Urine Culture [O1 *1] SOURCE: Urine BODY SITE: COLLECTED DATE/TIME: 03/22/2025 16:45 EDT RECEIVED DATE/TIME: 03/22/2025 19:21 EDT START DATE/TIME: 03/22/2025 19:21 EDT FREE TEXT SOURCE: FINAL REPORTS Final Report [] Verified Date/Time/Personnel: 03/24/2025 07:22 EDT >100,000 cfu/ml Mixed growth consistent with normal urogenital marilu. PRELIMINARY REPORTS Preliminary Report [] Verified Date/Time/Personnel: 03/23/2025 09:27 EDT Culture results pending. Preliminary Report [] Verified Date/Time/Personnel: 03/22/2025 19:59 EDT Specimen received in lab. Order Comments O1: Urine Culture Added by Discern Performing Locations *1: This test was performed at: [facility], [address] [place] [address], [facility] , [facility] 03-22-2025 Hospital Discharge instructions Additional Instructions Your blood work today revealed no clinically significant findings and the blood test for was negative. Your history exam and symptoms are most consistent with a viral infection. This should resolve spontaneously over the course of 7 to 10 days. Return to the ER should you have any further concerns [facility] Work Phone: 02-18-2025 Hospital Discharge instructions Patient Education 02/18/2025 18:07:52 Ganglion Cyst [...] stores without a prescription. You may use mnon-sln-wcsntgn pain medicine to control pain, unless another [...] or tingling in the hand or arm [phone] [employer]. [address] [place] [address]. All rights reserved. This information is not [...] stores without a prescription. You may use bkgs-gbt-qujfkns pain medicine to control pain, unless another [...] or tingling in the hand or arm [phone] [employer] [address] [place] [address]. All rights reserved. This information is not intended as a substitute for professional medical care. Always follow your healthcare professional's instructions. Follow Up Care 02/18/2025 16:58:33 With:ARLINE CORADO Address: [facility] [place] [address]- [phone] When:2-4 days With:THERESA TOLEDO MD, Orthopedic Address: [address] [place] [address], [address] [facility] [place] [address] [phone] When:2-4 days [facility] 02-18-2025 Note Discharge Instructions Thank you for allowing [facility] to assist you with your healthcare needs. [...] Up with ARLINE CORADO When:Within 2-4 days Where:[address] [place] [phone] Follow Up with THERESA TOLEDO MD, Orthopedic When:Within 2-4 days Where:[facility], [address] [facility] [place] [address]- [phone] Allergies Vicodin Medications Please ask your primary [...] check BS daily Unchanged DME (Dexcom G7 Mary Alice) See instructions Type 2 diabetes mellitus Use [...] instructions BD VENANCIO 2 GEN PEN NDL [id number] Unchanged DME (Lancets) See instructions test BS [...] stores without a prescription. You may use dvph-dxm-onodomb pain medicine to control pain, unless another [...] or tingling in the hand or arm [phone] [employer] [address] [place], [place] [address]. All rights reserved. This information is not [...] stores without a prescription. You may use brxk-apm-anuhhij pain medicine to control pain, unless another [...] or tingling in the hand or arm [phone] [employer] [address] [place] [address]. All rights reserved. This information is not intended as a substitute for professional medical care. Always follow your healthcare professional's instructions. Additional Information VACCINATE! IT SAVES LIVES! Members of the community who have not yet received the COVID-19 vaccine and would like to receive it can visit one of [facility] vaccine clinics. There are many vaccine clinic locations within the [facility]. For locations and available times, please visit [email or web address] It is important to note that some COVID mobile vaccine clinics are held outdoors and may be canceled in rainy or stormy conditions. To learn more about pediatric vaccinations (ages 5-11), we invite you to visit the [facility] webpage. [email or web address] vnoqrb-Ppbii-Ixlskmwjy.html To learn more about the COVID-19 vaccine, we invite you to visit the CDC website for a list of frequently asked questions. https://www.cdc.gov/coronavirus/ 2019-ncov/vaccines/faq.html [facility] Patient Portal Access Instructions: Stay connected with your healthcare team and access your personal medical information anytime with the [employer] Patient Portal. If you would like a full copy of your medical records please contact the [facility] Medical Records Department Sunday through Sunday between 8a.m. and 4:30p.m. Please follow the directions below to access the portal: 1.Access the email account you provided upon registration to [facility].2.Look for an invitation email from [facility].3.Open the email and access the invitation link: Accept Invitation to [facility]4.Fill in the required french to create your account. Sign into [email or web address] with your username and password that you [...] you will allow to register on the [employer] Patient Portal for access to your information. You can also access the [employer] Patient Portal on the [employer] lisette. Simply click on Health Records under [...] Call your local pharmacy or go to http://bit.ly/7V7We5j to find one close to you.3.Make use of household items: Use cat litter or old coffee grounds to dispose medications if other options are not available. Mix your drugs with these household products, seal them in an airtight container and throw it into the garbage. Call [facility]: [phone] to be sure your drugs can be [...] aware that I should contact my doctor. 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 Signature: Date/Time: Relationship to Patient: Witness Name/Signature: Date/Time: [facility] 02-18-2025 Note Exam Date Time Procedure Performing Provider Status 02/18/25 5:34 PM XR Wrist Minimum 3 Views Right SHERIN MENDEZ DO; Auth (Verified) [id number] ORIGINAL EXAMINATION: THREE XRAY VIEWS OF THE [...] Sign Date: 02/18/2025 5:53:14 PM Ordering Provider: [facility]06-16-2025 Discharge summary [facility] Medical Records Department [address] [place] [address] Emergency Department Summary 01/11/25 MR#: [id number] Acct: [id number] Name: BETSY MESA Rep #:[id number] : 1995 29 From: Oseas Aviles MD [...] past with a negative workup done at [facility] 1 to 2 years ago. She denies any nausea, vomiting or diarrhea. No dysuria. No fever. She is on no blood thinners. Prior similar symptoms: Yes Recent Illness/Hospitalization: No [facility] Medical History Anxiety Paresthesias Cervical radiculopathy Cervicalgia Home Medications ?Medication ?Instructions ?Recorded ?Last Taken ?Type metformin 500 mg tablet 500 mg PO DAILY 09/05/24 Unk nown History ibuprofen 600 mg tablet [...] signs stable afebrile blood pressure is little [id number] or 97. She does not look septic [...] normal. NIH 0. No facial droop. 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 Fingertip to nose jrce-dz-mamj within normal limits. No drift. Const Vital [...] normal Motor Exam: strength 5/5 throughout Coordination: vgzqyk-lk-uvfx test normal and ovub-ar-lgrn test normal Psych mental status grossly normal, [...] % (Auto) 54.7 Lymph % (Auto) 34.7 [place] % (Auto) 7.3 Eos % (Auto) 2.6 [...] IMPRESSION: No acute intracranial process. Reading Location: [facility] Discharge Plan Triage Chief Complaint: Numb/Ting Other [...] with your primary care physician. Print Language: Palauan Disposition Disposition: Home, Self Care What to do if you have Problems For any increased pain, shortness of breath, bleeding, nausea or vomiting, chestpain, or any unexpected problems, contact your Primary Care Provider. Call [facility] ([phone]) or report tothe closest Emergency Room. Call 911 if necessary. 01/12/25 0144 Cosigner Signature (if applicable): CC: No Primary Care Physician ~ Signed [facility]06-15-2025 Radiology Diagnostic study note [facility] Imaging Services [address] [place], [place] [address] Brain/Head without Contrast MR#: [id number] Acct: [id number] Name: BETSY MESA Rep #: [id number] : 1995 F 29 From: Aubrie Meléndez MD PCP: Care Physician,No Primary Status: REG ER Study:Brain/Head without Contrast Date of Exa m: 01/11/25 Exam# [id number] Ordering Dr: Evelin Aviles MD PROCEDURE: BRAIN/HEAD [...] IMPRESSION: No acute intracranial process. Reading Location: [facility] CC: Dr. Oseas Aviles MD; No Primary Care Physician ~ Senior Health Educator: Signed [facility]06-15-2025 Discharge summary Author Oseas Aviles [facility] Note Date/Time January 12, 2025 1:[address] [facility] Medical Records Department [address] [place] [address] Emergency Department Summary 01/11/25 MR#: [id number] Acct: [id number] Name: BETSY MESA Rep #:[id number] : 1995 29 From: Oseas Aviles MD [...] past with a negative workup done at [facility] 1 to 2 years ago. She denies any nausea, vomiting or diarrhea. No dysuria. No fever. She is on no blood thinners. Prior similar symptoms: Yes Recent Illness/Hospitalization: No [facility] Medical History Anxiety Paresthesias Cervical [...] normal. NIH 0. No facial droop. 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 Fingertip to nose elmb-nv-zmkd within normal limits. No drift. Const Vital [...] normal Motor Exam: strength 5/5 throughout Coordination: kbiniw-bp-ofjz test normal and dvkd-mg-ouju test normal Psych mental status grossly normal, [...] % (Auto) 54.7 Lymph % (Auto) 34.7 [place] % (Auto) 7.3 Eos % (Auto) 2.6 [...] IMPRESSION: No acute intracranial process. Reading Location: [facility] Discharge Plan Triage Chief Complaint: Numb/Ting Other [...] with your primary care physician. Print Language: Palauan Disposition Disposition: Home, Self Care What to do if you have Problems For any increased pain, shortness of breath, bleeding, nausea or vomiting, chestpain, or any unexpected problems, contact your Primary Care Provider. Call [facility] ([phone]) or report to the closest Emergency Room. Call 911 if necessary. 01/12/25 0144 <Electronically signed by Oseas Aviles MD> Cosigner Signature (if applicable): CC: No Primary Care Physician ~ Signed [facility] Work Phone: [phone] Hospital Discharge instructions Patient Education 09/30/2024 11:35:01 [...] face You have trouble talking or seeing [phone] [employer]. [address] [place] [address]. All rights reserved. This information is not intended as a substitute for professional medical care. Always follow yourhealthcare professional's instructions. Follow Up Care 09/30/2024 10:02:36 With:RODO HART Address: When:2-4 days With:ARLINE CORADO Address: [address] [place] [phone]- [phone] When:2-4 days [facility] 03-04-2025 Note Discharge Instructions Thank you for allowing [facility] to assist you with your healthcare needs. [...] Up with ARLINE CORADO When:Within 2-4 days Where:[facility] [place] [address]- [phone] Allergies Vicodin Medications Please ask your primary [...] check BS daily Unchanged DME (Dexcom G7 Mary Alice) See instructions Type 2 diabetes mellitus Use [...] instructions BD VENANCIO 2 GEN PEN NDL 32RK2BP Unchanged DME (Lancets) See instructions test BS [...] face You have trouble talking or seeing [phone] [employer]. [address] [place] [address]. All rights reserved. This information is not intended as a substitute for professional medical care. Always follow yourhealthcare professional's instructions. Additional Information VACCINATE! IT SAVES LIVES! Members of the community who have not yet received the COVID-19 vaccine and would like to receive it can visit one of [facility] vaccine clinics. There are many vaccine clinic locations within the [facility]. For locations and available times, please visit www.gettheshot.coronavirus.[place].gov/. It is important to note that some COVID mobile vaccine clinics are held outdoors and may be canceled in rainy or stormy conditions. To learn more about pediatric vaccinations (ages 5-11), we invite you to visit the [facility] webpage. https://www.[facility].org/pages/1131-Agoak-Ovoyqtujodo-Cfcmqdxbsj-Kecls-Lls stions.htmlTo learn more about the COVID-19 vaccine, we invite you to visit the CDC website for a list of frequently asked questions. https://www.cdc.gov/coronavirus/2019-ncov/vaccines/faq.html [facility] Patient Portal Access Instructions: Stay connected with your healthcare team and access your personal medical information anytime with the [employer] Patient Portal. If you would like a full copy of your medical records please contact the [facility] Medical Records Department Sunday through Sunday between 8a.m. and 4:30p.m. Please follow the directions below to access the portal: 1.Access the email account you provided upon registration to [facility].2.Look for an invitation email from [facility].3.Open the email and access the invitation link: Accept Invitation to [facility]4.Fill in the required french to create your account. Sign into [email or web address] with your username and password that you [...] you will allow to register on the [employer] Patient Portal for access to your information. You can also access the [employer] Patient Portal on the [employer] lisette. Simply click on Health Records under HealthData and then click on the [employer] logo. HOW TO SAFELY DISPOSE OF PRESCRIPTION [...] Call your local pharmacy or go to http://bit.ly/0G4Oh2x to find one close to you.3.Make use of household items: Use cat litter or old coffee grounds to dispose medications if other options arenot available. Mix your drugs with these household products, seal them in an airtight container andthrow it into the garbage. Call [facility]: [phone] to be sure your drugs can be [...] that I should contact my d octor. 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 Signature: Date/Time: Relationship to Patient: Witness Name/Signature: Date/Time: [facility]10-08-2024 Nurse Note* Irma Lin RN - 05/06/2024 [...] 20 Bleeding:Light Pain Ratin/10 Irma Lin RN [facility]10-08-2024 Instructions* Patient Instructions* Deana Sethi RN - [...] and showers are OK. Important Phone Numbers: [facility] Appointments in Coordinator Of Evaluation ( Early Assessment Clinics) Tiffany Cormier [facility] at [phone] [facility] at [phone] [facility] at [phone] After 4:30 PM or on weekends, you may reach the on-call Coordinator Of Evaluation by calling the clinic where you wereseen. [...] for diagnosis or termination for medical reasons. http://www.[facility]iteHealth.CrossFiber/ [facility]: ending a for a abnormality http://www.healthtalkonline.org/Pregnancy_children/Ending_a_pregnancy_for_fetal_ abnormality Ending a Wanted : support for patients and families ending a after or maternal medical diagnosis https://endingawantedpreIPTEGOancy.CrossFiber Caden Gudino: one person's story about loss and collected resources. http://www.LumaStream.CrossFiber [employer]: headquarters in [place] but with online support group https://www.ericaHearToday.Org.org/ohrkdh-crru-jfsctzt-groups.html LOCAL RESOURCES [facility] https://my.[facility].org/locations/[facility]/guest-services/suppo rt RooseveltSelina(Families Experiencing Early Loss) [facility] https://consultqd.[facility].org/jcwfacdte-rzcjgdhmf-jiozrgmykjw-program-james zptimv-acipwrdo-oetpentw/ [facility] - counseling services [phone] or toll free at [phone] [facility] Support Groups (not specific to loss) https://my.[facility].org/patients/information/bereavement/support-groups [facility] Bereavement [employer] Counselors with experience with families facing the loss of a baby before . This service may be covered by your insurance. If not, [facility] will not turn anyone away because of inability to pay. or [phone] Ramirez Lozano, local counselor, not associated with [facility] [phone] Some of our families have recommended Ramirez [...] Toyin Ni The Goodparmjite Book, By Brad Narayan Something Happened, By Carolyn Rea No New Baby, By Kyra Gallardo The Invisible String, By Duane Ramos Our Baby , by Silvia Cordero (two books, one for surgical termination and one for induction of labor) documented in [facility]Mer[facility]10-08-2024 Nurse Note* Irma Lin RN - 05/06/2024 [...] Ratin/10 Irma Lin RN documented in this encounterMer[facility]10-08-2024 NoteHNO ID: [id number] Author: LEELA CURRIE MD Service: ? Author Type: Physician Type: Progress Notes Filed: 05/07/2024 10:35 Note Text: Betsy Mesa is a 29 year old female who presents for problem visit for vaginal bleeding, falling HCG levels. Patient's last menstrual period was 02/18/2024 (within days). Last week was seen for this and dx w/ SAB. Last night started bleeding and went to [facility] ED but long wait so went to [place] ED and they offered patient to go to [facility] or f/u in office. Patient was d/jose home to f/u today. Having waves of cramping nad passing clots, bleeding heavier than a period. Soaked through pads last night then it slowed and passed more clots. 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 As applicable, any other physician, advance practice provider, medical student, or other health professional student that will be observing or involved in the sensitive examination for educational or training purposes was discussed with the Patient or Authorized Instrumentation And Controls Technician. The Patient or Authorized Instrumentation And Controls Technician has agreed to proceed with the sensitive examination. (Sensitive examination includes inspection and/or palpation of the breasts, pelvis, prostate and anorectal regions). EXAM: Wt 212 lb (96.2kg) LMP 02/18/2024 GENERAL: in pain, female in mild distress ABDOMEN: soft, non-tender, and no masses PELVIC: external genitalia normal, normal Bartholin's glands, urethra, [place]'s glands, no vulvar lesions, no cervical lesions, [...] Currie MD Procedure note (more content not included)...[facility] 05-06-2024 History of Present illness Narrative* Leela Currie MD - 05/06/2024 2:58 PM EDT Betsy Mesa is a 29 year old female who presents for problem visit for vaginal bleeding, falling HCG levels. Patient's last menstrual period was 02/18/2024 (within days). Last week was seen for thisand dx w/ SAB. Last night started bleeding and went to [facility] ED but long wait so went to [place] [facility]and they offered patient to go to [facility] or f/u in office. Patient was d/jose home to f/u today. Having waves of cramping nad passing clots, bleeding heavier than a period. Soaked through pads last night then it slowed and passed more clots. 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 As applicable, any other physician, advance practice provider, medical student, or other health professional student that will be observing or involved in the sensitive examination for educational or training purposes was discussed with the Patient or Authorized Instrumentation And Controls Technician. The Patient or Authorized Instrumentation And Controls Technician has agreed to proceed with the sensitive examination. (Sensitive examination includes inspection and/or palpation of the breasts, pelvis, prostate and anorectal regions). EXAM: Wt 212 lb (96.2kg) LMP 02/18/2024 GENERAL: in pain, female in mild distress ABDOMEN: soft, non-tender, and no masses PELVIC: external genitalia normal, normal Bartholin's glands, urethra, [place]'s glands, no vulvar lesions, no cervical lesions, [...] prn Leela Currie MD documented in [facility]Mer[facility]10-07-2024 Telephone encounter Note * Telephone Encounter - Scarlett Robledo RN - 05/05/2024 12:23 PM EDT Spoke with patient. She will have another HCG level drawn today since she has an appointment with [facility] on Sunday. Bleeding a little more. Changing a pad every 2-3 hours for comfort. Not soaking a pad. Scarlett Robledo RN [facility]10-07-2024 Miscellaneous Notes* Telephone Encounter - Scarlett Robledo [...] levels. Jose Aranda APRN.CNM documented in this encounterMercy Health10-04-2024 Telephone encounter Note * Telephone Encounter - Irma Lin RN - 05/02/2024 1:59 PM EDT CP notified Pt. Please leave phone note open to f/u on HCG results. Irma Lin RN [facility]10-04-2024 Telephone encounter Note* Telephone Encounter - Irma Lin RN - 05/02/2024 1:59 PM EDT ----- Message from Jose Aranda APRN.CNM sent at 05/02/2024 1:12 PM EDT ----- HCG level is decreasing. Patient aware that she needs to complete follow up levels. Jose Aranda APRN.CNM [facility]10-03-2024 NoteHNO ID: [id number] Author: KESHAWN MOSCOSO MD Service: ? Author Type: Physician Type: Progress Notes Filed: 05/01/2024 20:43 Note Text: Betsy Mesa is a 29 year old female who presented for nursing unit coordinator ultrasound today. Encounter Diagnosis ICD-10-CM 1. with uncertain dates in first trimester Z34.91 Please see report under imaging tab. Keshawn Moscoso MD May 01, 2024 8:[address] [facility]10-03-2024 History of Present illness Narrative * Keshawn Moscoso MD - 05/01/2024 8:36 PM EDT Betsy Mesa is a 29 year old female who presented for nursing unit coordinator ultrasound today. Encounter Diagnosis ICD-10-CM 1. with uncertain dates in first trimester Z34.91 Please see report under imaging tab. Keshawn Moscoso MD May 01, 2024 8:37 PM documented in this encounterMercy Health10-03-2024 NoteHNO ID: [id number] Author: JOSE ARANDA APRN.CNM Service: ? Author Type: Face And Fill Packer Type: Progress Notes Filed: 05/01/2024 14:31 Note [...] she started spotting and cramping this morning. Youth Court Judge History LMP: 02/18/2024 (Within Days), Age at Menarche: Age at First : Age at Menopause: Youth Court Judge History Comments: Sexual Activity: Yes; Male Contraception: [...] - No s/s of ectopic per US projection technician - Current gestational sac is 82 [...] voice understanding - Support provided Jose Aranda APRN.[facility]10-03-2024 History of Present illness Narrative* Jose Aranda [...] she started spotting and cramping this morning. Youth Court Judge History LMP: 02/18/2024 (Within Days), Age at Menarche: Age at First : Age at Menopause: Youth Court Judge History Comments: Sexual Activity: Yes; Male Contraception: [...] - No s/s of ectopic per US projection technician - Current gestational sac is 82 [...] provided Jose Aranda APRN.CNM documented in this encounterMercy Health09-30-2024 NoteHNO ID: [id number] Author: SUSHIL VILLANUEVA APRN.CNP Service: ? Author [...] L3 SAB0 IAB0 Ectopic0 Multiple0 Live Births[address] Judge History LMP: 02/18/2024 (Within Days), Having periods Age at Menarche: Age at First : 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 As applicable, any other physician, advance practice provider, medical student, or other health professional student that will be observing or involved in the sensitive examination for educational or training purposes was discussed with the Patient or Authorized Instrumentation And Controls Technician. The Patient or Authorized Instrumentation And Controls Technician has agreed to proceed with the sensitive [...] - ICD9: V22.1, ICD10: Z34.91 - POC LINE PATROLMAN ULTRASOUND - HCG QUANTITATIVE - COMPLETE BLOOD COUNT - TYPE + SCREEN - URINE CULTURE - PELVIC US WHI - HEMOGLOBIN A1C RTO for formal ultrasound and visit after or sooner as needed. Sushil Villanueva APRN.SUPERVISOR STOCK RANCH Medical Decision Making: Problems: Moderate: New problem with uncertain prognosis Data: Unique test result(s) reviewed: 2 Unique test(s) ordered: 3+ Risk: Low: Low risk from testing/treatment Medical Decision Making Level: [facility] History of Present illness Narrative* Sushil Villanueva APRN.SUPERVISOR STOCK RANCH - 04/28/2024 11:28 AM EDT Betsy Mesa [...] L3 SAB0 IAB0 Ectopic0 Multiple0 Live Births[address] Judge History LMP: 02/18/2024 (Within Days), Having periods Age at Menarche: Age at First : 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 As applicable, any other physician, advance practice provider, medical student, or other health professional student that will be observing or involved in the sensitive examination for educational or training purposes was discussed with the Patient or Authorized Instrumentation And Controls Technician. The Patient or Authorized Instrumentation And Controls Technician has agreed to proceed with the sensitive [...] - ICD9: V22.1, ICD10: Z34.91 - POC LINE PATROLMAN ULTRASOUND - HCG QUANTITATIVE - COMPLETE BLOOD [...] Level: 4 - Moderate documented in this encounterMercy Health09-27-2024 Evaluation + Plan note Future Scheduled Tests Laboratory* Thyroid Stimulating Hormone 04/25/24 * Free T4 04/25/24 * Free T3 04/25/24 Radiology* US Breast Left Complete 09/15/24 [facility] 08-18-2024 Note. MICRO - Microbiology PROCEDURE: Affirm [...] Locations *1: This test was performed at: [address], [facility] , [facility] ([facility]02-06-2024 Note. MICRO - Microbiology PROCEDURE: Affirm Pathogens [...] Locations *1: This test was performed at: [address], [facility] , [facility] ([facility]01-03-2024 Note. MICRO - Microbiology PROCEDURE: Urine Culture [...] Locations *1: This test was performed at: [address], [address] , [facility] ([place])01-02-2024 Note. MICRO - Microbiology PROCEDURE: Affirm Pathogens [...] Locations *1: This test was performed at: [address], [facility] , [facility] ([place])12-11-2023 NoteHNO ID: [id number] Author: GARTH POLANCO RN Service: ? Author Type: Registered Nurse Type: Nursing Progress Note Filed: 12/11/2023 12:58 Note Text: Patient given AVS no questions at this time. Patient walked to main entrance for discharge.[facility]05-13-2024 NoteHNO ID: [id number] Author: LORETA FROST MD Service: Hospital Medicine Author Type: Physician Type: Progress Notes Filed: 12/10/2023 17:34 Note Text: DEPARTMENT OF HOSPITAL MEDICINE Hospital Medicine/Primary Attending: Loreta Frost MD NIGHT AND WEEKEND COVERAGE: After 7pm please page [phone] Subjective: Seen and examined at bedside. No [...] CREAT 0.69 0.76 0.84 CHEM: Recent Labs 12/10/238 12/09/23 1735 CA 8.9 9.1 MG -- [...] tab(s) 81 mg ORAL DAILY Given, 12/09 0900 12/09/23 2344 -- 12/09/23 2345 activity - mobilize patient (sd,sd) SIGNATURE: Loreta Frost MD PATIENT NAME: Betsy Mesa DATE: December 10, 2023 TIME: 4:02 PM PAGER/CONTACT #: Team color pager Disclaimer: Portions of this note may have been generated using Duroline voice recognition software. Reasonable efforts were made to correct any dictation errors that resulted due to the programming of this software but some may still be present. Please note, the time of this note does not reflect the time I saw this patient today, but the time of this documentation.[facility]05-13-2024 NoteHNO ID: [id number] Author: BOB JOYA LISW Service: Care Management Author Type: Zyglo Inspector Type: Care Mgt Progress Note Filed: 12/10/2023 [...] 10, 2023 TIME: 3:18 PM PAGER/CONTACT #: [phone] NoteHNO ID: [id number] Author: GILA ROTH MD Service: ? Author Type: Physician Type: Progress Notes Filed: 12/09/2023 18:41 Note Text: TELESTROKE DOCUMENTATION Name: Betsy Mesa : 1995 Referring Site: [facility] Referring Provider: Dr. Muniz Last Known Well (Date/Time): 12/09/231614 Neurologist Callback (Date/Time): 12/09/23 8890 Chief Complaint: numbness of right face and [...] a telestroke. Thank you for contacting the [facility]. I appreciate the opportunity for allowing me to participate in Betsy Mesa's care. Please feel free to contact me and/or the [facility] at any time if you have any further questions or need additional assistance. Lester Roth MD December 09, 2023 6:40 [facility] History of Present illness Narrative* Gila Roth MD - 12/09/2023 6:40 PM EDT TELESTROKE DOCUMENTATION Name: Betsy Mesa : 1995 Referring Site: [facility] Referring Provider: Dr. Muniz Last Known Well (Date/Time): 05/12/24 1615 Neurologist Callback (Date/Time): 12/09/23 7430 Chief Complaint: numbness of right face and [...] a telestroke. Thank you for contacting the [facility]. I appreciate the opportunity for allowing me to participate in Betsy Mesa's care. Please feel free to contact me and/or the [facility] at any time if you have any further questions or need additional assistance. Lester Roth MD December 09, 2023 6:40 PM documented in this [facility]Mer[facility]05-09-2024 Note. MICRO - Microbiology PROCEDURE: Urine Culture [*1] SOURCE: Urine, Clean Catch BODY SITE: COLLECTED DATE/TIME: 12/04/2023 13:30 EDT RECEIVED DATE/TIME: 12/05/2023 07:26 EDT START DATE/TIME: 12/05/2023 07:26 EDT FREE TEXT SOURCE: FINAL REPORTS Final Report [] Verified Date/Time/Personnel: 12/06/2023 14:21 EDT 10,000 - 50,000 cfu/ml Mixed growth consistent with normal urogenital marilu. Performing Locations *1: This test was performed at: [facility], [address] [place] [address], [address] , [facility] ([place])08-11-2023 Hospital Discharge instructions* Additional Discharge Instructions Please keep well hydrated and take your medication as prescribed and follow up closely with your primary care doctor. If the symptoms worsen or new symptoms develop return to the Emergency Department (ED) immediately. Call your doctor for additional questions. ED . Instruction/Education Provided DI for Keke pennington -- [facility] 02-28-2023 Hospital Discharge instructions* Discharge Instructions* [...] care or concern. documented in [facility] Work Phone: [phone]) 923-433208-10-2022 Note Discharge Instructions Thank you for allowing [facility] to assist you with your healthcare needs. The following is importantdischarge information regarding your hospital visit. Your Care Team PHYSICIAN, NONE What to do next Follow Up Appointments Follow Up with BUYER ASSISTANT, CLINIC When In 6 weeks 04/18/2022 EDT Why: Follow-up as needed Where: [address] [facility] (Mon-Fri from 8:30am - 5:00pm) [place] [address]- Follow Up with [facility] food program; When Someone Will Contact You [...] for as needed for constipation Pickup at [facility] #24923 New ibuprofen (ibuprofen 600 mg oral tablet) 1 tab(s) by mouth Every 6 hours as needed for for pain Take with food or milk. Pickup at [facility] #05426 New insulin glargine (Lantus 100 units/ mL10 ml vial solution) 22 unit(s) Subcutaneous (INT) Once a day (in the evening) Refills: 5 Patient needs 6 week supply of 22 units daily Pickup at [facility] #26232 Changed cyclobenzaprine (cyclobenzaprine 5 mg oral tablet) 1 tab(s) by mouth Three (3) times a day Duration: 7 Days Pickup at [facility] #26382 Unchanged famotidine (Pepcid 20 mg oral tablet) 1 tab(s) by mouth Once a day Unchanged multivitamin, (PNV Select) by mouth Once a day Pharmacy Information [facility] #76256: [address], [place] [phone] What How Much When Comments Stop Taking [...] you. Follow these instructions at home: Take tgcn-hqe-qrljkdm and prescription medicines only as told by [...] 03/19/2015 Document Revised: 08/22/2019 Document Reviewed: 05/06/2018 ElseRuna Patient Education 2020 [employer]. Hemorrhage hemorrhage is excessive blood loss after [...] spinach, red meat, and legumes. Take any pvej-iwo-umkxdgk and prescription medicines only as told by [...] 10/05/2004 Document Revised: 06/28/2018 Document Reviewed: 02/16/2017 SentreHEART Patient Education 2020 [employer]. Home Care Instructions After Delivery After discharge [...] decreases and the color of blood gets radial drill operator for plastic. Bright red and increased flow may reoccur [...] tender for several weeks. Take prescription or mibf-sva-vogueen medications for pain with your care givers [...] straining when trying to pass a stool. Hbvi-piz-idwacdv medications, stool softeners, can be used. Check [...] to receive it can visit one of [facility] vaccine clinics. There are many vaccine clinic locations within the [facility]. For locations and available times, please visit [email or web address]. It is important to note that some COVID mobile vaccine clinics are held outdoors and may be canceled in rainy orstormy conditions. To learn more about pediatric vaccinations (ages 5-11), we invite you to visit the [facility] webpage. https://[email or web address].[email or web address]/pages/7331-Nwdca-Wmjwalhgwhi-Ppktkcblxt-Ckrlc-Wuv stions.htmlTo learn more about the COVID-19 vaccine, we invite you to visit the [facility] website for a list of frequently asked questions. [email or web address]/Qpxqgyrp-[email or web address]-Cooxnhic/ikhdt-Jqlefas-Gngjjsxnqr _Asked-Questions.pdf [facility] Patient Portal Access Instructions: Stay connected with your healthcare team and access your personal medical information anytime with the [facility] [employer] Patient Portal.If you would like a full copy of your medical records, please contact the [facility] Medical Records Department, Sunday through Sunday between 8a.m. and 4:30p.m. Please follow the directions below to access the portal: 1.Access the email account you provided upon registration to the [facility].2.Look for an invitation email from [facility].3.Open the email and access the invitation link: Accept Invitation to [facility]4.Fill in the required french to create your account. Sign into [email or web address] with your username and password that you [...] you will allow to register on the [facility] Patient Portal for access to your information. You can also access the [facility] Patient Portal on the [employer] lisette. Simply click on Health Records under Levels BeyondData and then click on the [facility] logo. [...] Call your local pharmacy or go to http://bit.Home Comfort Zones/[email or web address] to find one close to you.3.Make use of household items: Use cat litter or old coffee grounds to dispose medications if other options arenot available. Mix your drugs with these household products, seal them in an airtight container andthrow it into the garbage. Call [facility]: [phone] to be sure your drugs can be [...] am aware that I should contact my allan valencia. 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 Signature: Date/Time: Relationship to Patient: Witness Name/Signature: Date/Time: [facility] CenterCmoeddkj81-25-4258 Note A. Received in formalin, labeled with the patients name, Case #[id number], and placenta is a bhatia placenta weighing [...] less than 15% ofthe overall disc volume. Instrumentation And Controls Technician sections in 3 cassettes. Dictated by [facility] 08-09-2022 Note A. Received in formalin, labeled with the patients name, Case #[id number], and placenta is a bhatia placenta weighing [...] less than 15% ofthe overall disc volume. Instrumentation And Controls Technician sections in 3 cassettes. Dictated by [facility] 08-09-2022 Hospital Discharge instructions Patient [...] you. Follow these instructions at home: Take nrib-olh-fpkcxye and prescription medicines only as told by [...] 03/19/2015 Document Revised: 08/22/2019 Document Reviewed: 05/06/2018 SentreHEART Patient Education 2020 [employer]. 03/07/2022 07:46:22 Hemorrhage Hemorrhage hemorrhage is excessive [...] spinach, red meat, and legumes. Take any qeaz-mnh-gqbbpir and prescription medicines only as told by [...] 10/05/2004 Document Revised: 06/28/2018 Document Reviewed: 02/16/2017 SentreHEART Patient Education 2020 [employer]. 03/07/2022 07:46:19 7- Home Care Instructions After [...] decreases and the color of blood gets radial drill operator for plastic. Bright red and increased flow may reoccur [...] tender for several weeks. Take prescription or hmcd-ktb-mammpzh medications for pain with your care givers [...] straining when trying to pass a stool. Xrkc-tdh-xwhtmhx medications, stool softeners, can be used. Check [...] flu symptoms.) Follow Up Care 03/05/2022 09:44:05 With:BUYER ASSISTANT, CLINIC Address: [address] [facility] (Mon-Fri from 8:30am - 5:00pm) [place] [address]- When:04/18/2022 Comments:Follow-up as needed With:[facility] food program; Address:Unknown When: Unknown [facility] 08-09-2022 Note Discharge Instructions Thank you for allowing [facility] to assist you with your healthcare needs. The following is importantdischarge information regarding your hospital visit. Your Care Team PHYSICIAN, NONE What to do next Follow Up Appointments Follow Up with BUYER ASSISTANT, CLINIC When In 6 weeks 04/18/2022 EDT Why: Follow-up as needed Where: [address] [facility] (Mon-Fri from 8:30am - 5:00pm) [place] [address]- Follow Up with [facility] [employer]; When Someone Will Contact You Regarding These [...] for as needed for constipation Pickup at [facility] #82876 New ibuprofen (ibuprofen 600 mg oral tablet) 1 tab(s) by mouth Every 6 hours as needed for for pain Take with food or milk. Pickup at [facility] #11395 New insulin glargine (Lantus 100 units/ mL10 ml vial solution) 22 unit(s) Subcutaneous (INT) Once a day (in the evening) Refills: 5 Patient needs 6 week supply of 22 units daily Pickup at [facility] #80635 Changed cyclobenzaprine (cyclobenzaprine 5 mg oral tablet) 1 tab(s) by mouth Three (3) times a day Duration: 7 Days Pickup at [facility] #78018 Unchanged famotidine (Pepcid 20 mg oral tablet) 1 tab(s) by mouth Once a day Unchanged multivitamin, (PNV Select) by mouth Once a day Pharmacy Information [facility] #55774: [address], [place] [phone] What How Much When Comments Stop Taking [...] you. Follow these instructions at home: Take wklq-qvo-yxjvnnq and prescription medicines only as told by [...] 03/19/2015 Document Revised: 08/22/2019 Document Reviewed: 05/06/2018 SentreHEART Patient Education 2020 [employer]. Hemorrhage hemorrhage is excessive blood loss after [...] spinach, red meat, and legumes. Take any maxd-wid-hwxqcoj and prescription medicines only as told by [...] 10/05/2004 Document Revised: 06/28/2018 Document Reviewed: 02/16/2017 SentreHEART Patient Education 2020 SentreHEART Inc. Home Care Instructions After Delivery After [...] decreases and the color of blood gets radial drill operator for plastic. Bright red and increased flow may reoccur [...] tender for several weeks. Take prescription or dkcr-xzn-rhwgolr medications for pain with your care givers [...] straining when trying to pass a stool. Swqv-rog-nejzsna medications, stool softeners, can be used. Check [...] to receive it can visit one of [facility] vaccine clinics. There are many vaccine clinic locations within the [facility]. For locations and available times, please visit www.[email or web address].[email or web address].[email or web address]. It is important to note that some COVID mobile vaccine clinics are held outdoors and may be canceled in rainy orstormy conditions. To learn more about pediatric vaccinations (ages 5-11), we invite you to visit the [facility] webpage. https://www.akNosoph[employer].org/pages/2316-Gltur-Srqorlfxnee-Kpzacwsara-Chpjo-Zvt stions.htmlTo learn more about the COVID-19 vaccine, we invite you to visit the [facility] website for a list of frequently asked questions. https://[email or web address]/assets/Ecpwvgyd-sot-Ojqdaftd/dzcjl-Dteviis-Yzyoikjfrw _Asked-Questions.pdf [facility] Patient Portal Access Instructions: Stay connected with your healthcare team and access your personal medical information anytime with the [facility] Patient Portal.If you would like a full copy of your medical records, please contact the [facility] Medical Records Department, Sunday through Sunday between 8a.m. and 4:30p.m. Please follow the directions below to access the portal: 1.Access the email account you provided upon registration to the [facility].2.Look for an invitation email from [facility].3.Open the email and access the invitation link: Accept Invitation to [facility] [employer] [facility]4.Fill in the required french to create your account. Sign into [email or web address] with your username and password that you [...] you will allow to register on the [facility] Patient Portal for access to your information. You can also access the [facility] Patient Portal on the [employer]. Simply click on Health Records under Engagio and then click on the [employer] logo. HOW TO SAFELY DISPOSE OF PRESCRIPTION [...] Call your local pharmacy or go to [email or web address] Comfort Zones/1F8Sx8s to find one close to you.3.Make use of household items: Use cat litter or old coffee grounds to dispose medications if other options arenot available. Mix your drugs with these household products, seal them in an airtight container andthrow it into the garbage. Call [facility]: [phone] to be sure your drugs can be [...] that I should contact my d octor. 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 Signature: Date/Time: Relationship to Patient: Witness Name/Signature: Date/Time: [facility] [id number] Discharge summary Discharge Diagnosis: (_x) IUP (_) [...] given Rubella: (_x) Rubella immune (_) Rubella haj-dlyujt-Jhmdnpq given (_) Rubella vxd-eonazz-Nyawhio declined Feeding Hrodes: (_) Breast feeding (_x) Bottle feeding Consultations/referrals: [...] SANTO BOWER DO on 03/07/2022 07:36 AM [facility] CenterLfaxuxth91-05-0310 Note A. Received in formalin, labeled with [...] less than 15% ofthe overall disc volume. Instrumentation And Controls Technician sections in 3 cassettes. Dictated by BEN Carrington DRUMMOND [facility] 08-08-2022 Nurse Progress note pt not in room at 10 for post parandial blood sugar check I advised pt not to go outside until we remove iv but she is not compliant Digitally Signed by Mar Conway RN on 2022 10:05 AM [facility] CenterApwalczl01-99-2915 Note A. Received in formalin, labeled with [...] less than 15% ofthe overall disc volume. Instrumentation And Controls Technician sections in 3 cassettes. Dictated by [facility] 08-08-2022 Note A. Received in [...] less than 15% ofthe overall disc volume. Instrumentation And Controls Technician sections in 3 cassettes. Dictated by [facility] 08-08-2022 Note A. Received in [...] less than 15% ofthe overall disc volume. Instrumentation And Controls Technician sections in 3 cassettes. Dictated by BEN MANJARREZ [facility] 08-07-2022 Evaluation + Plan noteExtracted from: Title:Clinical Document Author:GISELLE BROWNE MD Date:03/05/22 [facility] ADMISSION HISTORY AND PHYSICAL Chief complaint: [...] 10:13)36.7(MAR 05 10:13)36.7(MAR 05 10:13) Heart Rate88(MAR 05:)88(MAR 05 10:13)88(MAR 05 10:13) Resp Rate18(MAR 05 10:13)18(MAR 05 10:13)18(MAR 05 10:13) SBPH 154(MAR 05:)H 154(MAR 05:)H 154(MAR 05:) DBPC 108(MAR 05 10:13)C 108(MAR 05 10:13)C 108(MAR 05:13) GENERAL: NAD, A&O x3 NEUROLOGICAL: A&Ox3, CN [...] BS monitoring. PCN . Monitor per protocol. [facility] 08-07-2022 History and physical note [facility] ADMISSION HISTORY AND PHYSICAL Chief complaint: [...] GISELLE BROWNE MD on 03/05/2022 10:20 AM [facility] CenterBauscwow05-52-6193 Anesthesiology Consult note Patient: BETSY MESA Age: 26 years Sex: Female : 1995 Associated Diagnoses: None Author: HAKAN STEWARD APRN-CORPORATE STAFF ACCOUNTANT Preoperative Information Procedure/ Case: labor epidural Anesthesiologist [...] ADD (attention deficit disorder) / SNOMED CT [id number] / Confirmed Gestational diabetes mellitus, class A>1< / SNOMED CT 672525461 / Confirmed Induction of labor / SNOMED CT 923026281 / Confirmed / SNOMED CT 154600543 / Confirmed / SNOMED CT 622438165 / Confirmed, Active Problems (8) ADD (attention deficit disorder) Gestational diabetes Gestational diabetes Gestational diabetes mellitus, class A>1< Induction of labor Tobacco use Histories Past Medical History: Active ADD (attention deficit disorder) ([id number]) Resolved (533689834): Onset on 10/23/2018 at 23 years. Resolved on 08/04/2019 at 24 years. Comments: 02/27/2017 EDT 15:51 EDT - SYSTEM System added from documentation. Status documented as Yes on Admission (903387806): Onset on 10/16/2016 at 21 years. Resolved in 2017 at 22 years. (848600530): Onset on 10/20/2013 at 18 years. Resolved in 2014 at 19 years. (551755911): Onset on 08/16/2013 at 18 years. Resolved on 05/29/2014 at 19 years. Family History: Diabetes mellitus type 1 Sister Diabetes mellitus type 2 Mother Seizure Sister Procedure history: None ([id number]). Social History Social & Psychosocial Habits Alcohol [...] Oral36.7 DegC (MAR 05 10:13) Heart Rate Bzafpmkeh55 bpm (MAR 05 10:30) Resp Rate 18 br/min (MAR 05 10:13) BMI34.51 (MAR 05 10:05) Measurements from flowsheet : Measurements 03/05/2022 10:05 EDT Height 177.8 cm Admission Weight 109.1 kg [place] Body Weight 68.50 kg BSA Admission 2.26 [...] Height 177.8 cm Admission Weight 109.1 kg [place] Body Weight 68.50 kg BSA Admission 2.26 [...] Surrogate No Tubal Sterilization Planned No Discharge [place] Physician d[place]en Written Plan No WIC Participant [...] Teaching Evaluation Needs practice/supervision Preferred Written Language Palauan Preferred Spoken Language Palauan Chief Complaint labor Mode of Arrival Wheelchair Accompanied by Significant other, Sibling Information Given by Patient Patient's Current Physicians [facility] Emergency Contact Number Emergency Contact Number Belongings [...] Documentation reviewed: Current records. Assessment and Plan Japanese Society of Anesthesiologists (ASA) physical status classification: [...] by HAKAN STEWARD on 03/05/2022 10:51 AM [facility] CenterSmixboja60-88-4711 History and physical note [facility] ADMISSION HISTORY AND PHYSICAL Chief complaint: [...] GISELLE BROWNE MD on 03/05/2022 10:20 AM [facility] CenterQxrkfpqo01-61-7849 History and physical note [facility] ADMISSION HISTORY AND PHYSICAL Chief complaint: [...] GISELLE BROWNE MD on 03/05/2022 10:20 AM [facility] CenterBfayokkd47-80-4350 Hospital Discharge instructions Patient Education 01/18/2022 06:55:38 7 - Labor and Delivery Outpatient Instructions(CUSTOM) [facility] AND DELIVERY OUTPATIENT HOME-GOING INSTRUCTIONS _X_ [...] crackers, bananas, Jell-O, cooked carrots, applesauce. ___ [place]uddy diet. Avoid caffeine, chocolate, alcohol, spiced/greasy foods. [...] the nearest Emergency Room for assistance. Form 633686 D: 07/07 Document Released: 07/16/2006 Document Revised: 07/04/2012 Document Reviewed: 07/16/2006 ExitCare Patient Information 2012 [employer]. Follow Up Care 01/17/2022 14:26:45 With:GATITO ODOM DO Address: [address] [place] [phone] When: Unknown Comments:Follow-up as scheduled [facility] 01-09-2022 Hospital Discharge instructions Patient Education 08/07/2021 [...] for support. Classes and counselors. 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 Get [...] your health. For more information National Cancer Peck Smoking Quitline, OpenRent.gov/mifkq-ji-zk-expert, 629-78O-LGBV (964-019-4216) 7323-7460 [employer]. [address] [place] [address]. All rights reserved. This information is not [...] You can buy oil of cloves at drugsDelfmems. Some pharmacies carry an ugia-fjp-wqozgva toothache kit. This contains a paste that you can put on the exposed tooth to make it less sensitive. Put a cold pack on your jaw over the sore area to help reduce pain. You may use jpco-ghp-decvwby medicine to ease pain, unless another medicine [...] Pus drains from the tooth or gum [phone] [employer]. [address] [place] [address], [place] [address]. All rights reserved. This information is not intended as a substitute for professional medical care. Always follow yourhealthcare professional's instructions. Follow Up Care 08/07/2021 16:21:41 With:Dental Referral List Address:Unknown When:2-4 days [facility] 10-20-2021 Hospital Discharge instructions Patient Education 05/18/2021 [...] the smoke from others. You may use idpp-ihn-mcqsmxd acetaminophen or ibuprofen for fever, muscle aching, [...] body and be dangerous to your health. Pywz-apk-ixdcsbd remedies won't shorten the length of the [...] or as directed by your healthcare provider [phone] [employer]. [address] [place] [address]. All rights reserved. This information is not intended as a substitute for professional medical care. Always follow yourhealthcare professional's instructions. Follow Up Care 05/18/2021 12:09:33 With:Call Physician Referral Address:Unknown When:2-4 days [facility] 08-17-2021 Hospital Discharge instructions* Instructions* Carlitos English, HAND CLOTH EXAMINER - SUPERVISOR STOCK RANCH - 03/15/2021 In the medical field, there [...] be sent through Care Everywhere. * Cough (Palauan) documented in this [facility] Work Phone: 1(194) 787-291408-09-2021 Taisha independently performed a history and physical [...] EKG myself in the absence of a zmt operator is first-degree AV block, sinus tachycardia. Interpretation [...] provider for clarification. Isreal Kincaid MD 03/07/[address] [place], [place] [address]Evaluation + Plan note No data available for this section [facility] Evaluation + Plan note Future Appointments Appointment Date:05/26/2024 01:30:00 PM Scheduled Provider:ARLINE CORADO Location:[facility] Appointment Type:PC OV Follow Up 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, unspecified Acute cystitis with hematuria Acute cystitis documented in this encounter [facility] Work Phone: Evaluation note* Diagnosis Cough- Primary Vaginal discharge Leukorrhea, not specified as infective documented in this encounter [facility] Work Phone: Evaluation note* Diagnosis Hypertension, unspecified type- Primary documented in this encounter [facility] Work Phone: evaluation note* Diagnosis Numbness- Primary Disturbance of skin sensation [facility]* Diagnosis with uncertain viability, single or unspecified fetus- Primary with uncertain dates in first trimester [facility] [place] [facility]* Diagnosis Positive test- Primary examination or test, positive result Threatened miscarriage Threatened , unspecified as to episode of care with uncertain dates in first trimester Spotting affecting in first trimester documented [facility] [place] [facility]* Diagnosis with uncertain dates in first trimester [facility]* Diagnosis Incomplete - Primary Unspecified , without mention of complication, incomplete Threatened miscarriage Threatened , unspecified as to episode of care documented in this encounter [facility] [place] noteNo assessment information [facility] Work Phone: Hospital Discharge instructions* Instructions* Isreal Kincaid MD - 03/07/2021 [facility] Long-term residential drug and alcohol rehabilitation services [address] [facility] [phone] [facility] crisis Center 24 hour detox and drop in. Central assessment 8 AM4 PM for adults. [address] [phone] [facility] only for outpatient treatment services M, W, Th 9AM-9PM, T F 9AM-530PM [address] [facility] [phone] Al-Anon and Alateen M-F 10AM-2PM [phone] or [phone] Alcoholics Anonymous [address] [facility] M-F 9AM-5 PM, Sa 9AM-[address] [phone] [facility] Outpatient/Inpatient/Detox for adults [address] [facility] [phone] Adolescents Treatment/Detox [address] [facility] [phone] [facility] Alcohol and drug counseling and groups. [address] [place] [address] [facility] Drug, alcohol, gambling, and mental health treatment. M-F 8AM-4:30PM [address] [phone], ext [phone] Narcotics Anonymous 24 hour Hotline 0-347-YVR-HOPE or [facility] Sober living housing, counseling, vocational education, job referral, recovery coaching [address] [facility] [phone] [facility] Alcohol and Drug Counseling Call for treatment appointment and prevention [address] [facility] [phone] * Attachments The following attachments cannot be sent through Care Everywhere. * UTI (Urinary Tract Infection): Female (Palauan) * Substance Use Disorder (Palauan) documented in this [facility] Work Phone: Hospital Discharge instructions No data available for this section [facility] Hospital Discharge instructionsNo known hospital discharge instructions.[facility] Discharge instructions* Additional Discharge Instructions [facility] Gynecology [facility] Office for appointment to be seen. Instruction/Education Provided DI for Va ginal Bleeding [facility] Discharge instructions Additional Instructions Your labs and CAT scan were all good. Follow-up with your primary care physician.[facility] Work Phone: Hospital Discharge instructionsAdditional Instructions Your scan did not show any sign of skull fracture or brain bleed indicating the pain is from soft tissue contusion. You can ice the area to help reduce pain and swelling and also continue the prescribed ibuprofen. Return to the ER should you have any further concerns [facility] Work Phone: Progress note No data available for this section [facility] Reason for referral (narrative)* Diagnostic Procedure Only (Routine) - Authorized Specialty Diagnoses / Procedures Referred By Ani thomas Referred To Contact [facility] Diagnoses with uncertain dates in first trimester Procedures PELVIC US WHI US PELVIC NONOBSTETRIC REAL-TIME IMAGE COMPLETE Sushil Villanueva APRN.CNP [address] [place] [address] [facility] [address] [place] [address] Referral ID Status Reason Start Date Expiration Date Visits Requested Visits Authorized [id number] Authorized Auto-Generat ed Referral 04/28/2024 04/28/2025 1 1 [facility]No reason for referral information availableWKindred [facility] Work Phone: Reason for visit Narrative* Diagnostic Procedure Only (Routine) - Closed Specialty Diagnoses / Procedures Referred By Ani thomas Referred To Contact [facility] Diagnoses with uncertain dates in first trimester Procedures PELVIC US WHI US PELVIC NONOBSTETRIC REAL-TIME IMAGE COMPLETE Sushil Villanueva APRN.SUPERVISOR STOCK RANCH [address] [place] [address] [facility] [address] [place] [address] Referral ID Status Reason Start Date Expiration Date V isits Requested Visits Authorized [id number] Closed Auto-Generate d Referral 04/28/2024 04/28/2025 1 1 [facility] Summary Purpose Family History No Family History Records Found Relationship Condition Age at Onset Recorded Date/T chapincito Not Specified Diabetes mellitus Unknown Seizure Unknown Malignant neoplasm Unknown Advance Directives No Advanced Directives Records FoundDocuments on File Type Date Recorded Patient Instrumentation And Controls Technician Expl anation Advance Directive(s) 01/29/2019 3:31 PM Date Activated Date Inactivated Comments 12/09/2023 11:45 PM 12/11/2023 4:14 PM Question Answer Comments Full Code Order Discussed With: Patient Date Activated Date Inactivated Comments 12/09/2023 11:45 PM 12/11/2023 4:14 PM Question Answer Comments Full Code Order Discussed With: Patient Advance Directive Response Recorded Date/ Time Do you have a Healthcare Power of Bad Cloth Checker? No January 11, 2025 10:21pm Advance Directive Response Recorded Date/ Time Do you have a Healthcare Power of Bad Cloth Checker? No January 11, 2025 10:21pm Do you have a Healthcare Power of Bad Cloth Checker? No February 05, 2025 1:16am Advance Directive Response Recorded Date/ Time Do you have a Healthcare Power of Bad Cloth Checker? No January 11, 2025 10:21pm Do you have a Healthcare Power of Bad Cloth Checker? No February 05, 2025 1:16am Do you have a Healthcare Power of Bad Cloth Checker? No March 22, 2025 11:27pm Chief Complaint and Reason for Visit Chief Complaint Admit Date NUMBNESS, C/O January 11, 2025 9:47 pm Chief Complaint Admit Date NUMBNESS, C/O January 11, 2025 9:47 pm head injury February 05, 2025 1:12 am Chief Complaint Admit Date NUMBNESS, C/O January 11, 2025 9:47 pm head injury February 05, 2025 1:12 am general March 22, 2025 11 :21pm Additional Source Comments INFORMATION SOURCE (unrecogn ized section and content) DATE CREATED AUTHOR 01/22/2018 [facility] DATE CREATED AUTHOR AUTHOR'S ORGANIZ ATION 05/05/2019 [facility] DATE CREATED AUTHOR AUTHOR'S ORGANIZ ATION 04/09/2021 [facility] DATE CREATED AUTHOR AUTHOR'S ORGANIZ ATION 12/07/2021 [facility] DATE CREATED AUTHOR AUTHOR'S ORGANIZ ATION 01/04/2022 [facility] DATE CREATED AUTHOR AUTHOR'S ORGANIZ ATION 10/10/2022 [facility] DATE CREATED AUTHOR AUTHOR'S ORGANIZ ATION 10/18/2023 [facility] DATE CREATED AUTHOR AUTHOR'S ORGANIZ ATION 12/12/2023 [facility] DATE CREATED AUTHOR AUTHOR'S ORGANIZ ATION 03/22/2024 [facility] DATE CREATED AUTHOR AUTHOR'S ORGANIZ ATION 05/11/2024 [facility] DATE CREATED AUTHOR AUTHOR'S ORGANIZ ATION 06/01/2024 [facility] DATE CREATED AUTHOR AUTHOR'S ORGANIZ ATION 03/11/2025 [facility] nt DATE CREATED AUTHOR AUTHOR'S ORGANIZ ATION 03/17/2025 [facility] DATE CREATED AUTHOR AUTHOR'S ORGANIZ ATION 03/29/2025 [facility] DATE CREATED AUTHOR AUTHOR'S ORGANIZ ATION 03/30/2025 [facility] DATE CREATED AUTHOR AUTHOR'S ORGANIZ ATION 04/19/2025 [facility] Reason for Visit (unrecogniz ed section [...] dose 2214 (Given - Provid er: Jose Beckett RN) cefTRIAXone (ROCEPHIN) 500 mg in lidocaine 1 % 1 mL IM Injection (COMPLETED) 500 mg, Intramuscular, ONCE, On Sun03/15/21 at 2100, For 1 dose 2147 (Given - Provid er: Jose Beckett RN) doxycycline monohydrate (MONODOX) capsule 100 [...] zinc. 2147 (Given - Provid er: Jose Beckett RN) metroNIDAZOLE (FLAGYL) tablet 2,000 mg [...] (New Bag - Prov ider: Martha Varela RN)2336 (Stopped - Provider: Martha Varela RN) PRN Medication Order 09/24/2022 09/25/2022 09/26/2022 iopamidol (ISOVUE-370) 76 % injection 75 mL (COMPLETED) 75 mL, IntraVENous, IMG ONCE PRN, 1 dose, Starting on Sun09/26/22 at 2218, Until Sun09/26/22 at 2227, Other 2227 (Given - Provid er: Erica Avila - Comment: [id number] XP 04/23) Source Comments (unrecognize d section and content) In the event this informatio n is protected by the Federal Confidentiality of Alcohol and Drug Abuse Patient Records regulations: The Federal rules restrict any use of the information to criminally investigate or prosecute any alcohol or drug abuse patient.[facility] Health[facility] the event this information is protected by the Federal Confidentiality of Alcohol and Drug Abuse Patient Records regulations: The Federal rules restrict any use of the information to criminally investigate or prosecute any alcohol or drug abuse patient.[facility] HealthIn the event this information is protected by the Federal Confidentiality of Alcohol and Drug Abuse Patient Records regulations: The Federal rules restrict any use of the information to criminally investigate or prosecute any alcohol or drug abuse patient.[facility] HealthIn the event this information is protected by the Federal Confidentiality of Alcohol and Drug Abuse Patient Records regulations: The Federal rules restrict any use of the information to criminally investigate or prosecute any alcohol or drug abuse patient.[facility] HealthIn the event this information is protected by the Federal Confidentiality of Alcohol and Drug Abuse Patient Records regulations: The Federal rules restrict any use of the information to criminally investigate or prosecute any alcohol or drug abuse patient.[facility] HealthIn the event this information is protected by the Federal Confidentiality of Alcohol and Drug Abuse Patient Records regulations: The Federal rules restrict any use of the information to criminally investigate or prosecute any alcohol or drug abuse patient.[facility] HealthIn the event this information is protected by the Federal Confidentiality of Alcohol and Drug Abuse Patient Records regulations: The Federal rules restrict any use of the information to criminally investigate or prosecute any alcohol or drug abuse patient.[facility] Care Team (unrecognized sect ion and content) Care Team Personnel Name: PHYSICIAN, NONE Position: Physician Member Role: Primary Care Physician Name: Jocelyn Ojeda RN Position: OB RN Member Role: RN Name: Chris Vidal RN Position: OB RN Member Role: RN Care Team Related Persons Name: SANDY DIANA Talley Address: Home [address] [place] [address] Name: JAKE COLONJerrica Talley Address: Home [address] [place] [address] Name: RYAN MESA Address: Home [address] [place] [address] [place] Name: CARA BARCENAS Name: CARA BARCENAS Name: CARA BARCENAS Name: CARA BARCENAS Name: AMELIA LANDEROS Address: Home [address] [place] [address] [place] Care Teams (unrecognized sec tion and [...] January 11, 2025 End: January 12, 2025 Social Worker Psychiatric Relationship Specialty Start Date End Date PcpEstrella APRN PCP - General Adult Health 02/05/24 08/29/24 Care Team Personnel Name: ARLINE CORADO HAND CLOTH EXAMINER-SUPERVISOR STOCK RANCH Position: P4 [employer] Servicer Helper Member Role: Primary Care Physician Address: Address: [address] [place] [address] [place] [address]- [place] Care Team Related Persons Name: CARA BARCENAS Social Worker Psychiatric Relationship Specialty Start Date End Date Estrella León APRN PCP - General Adult Health 08/25/23 [...] BE BASED ON THE PRIMARY CLINICAL RECORDS. [employer] provides no warranty or guarantee of the accuracy or completeness of information in this document.
[2025-05-03 20:35] LABS: Hematocrit 35.4 % (37-47); Hemoglobin 11.7 g/dL (12.0-15.0); Immature Granulocytes Count 0.020 X10^3/uL (0.0-0.0); Mean Corp Hgb Conc 33.1 g/dL (32-36); Mean Corpuscular Volume 86.3 fL (81-99); Mean Platelet Vol. 10.6 fl (6.2-12.0); NRBC Flagged by Analyzer 0 % (0-5); Platelet Count 169 K/mm3 (150-450); RBC Distribution Width CV 15.6 % (11.6-14.6); RBC Distribution Width SD 49.6 fl (35.1-43.9); Red Blood Count 4.10 M/mm3 (4.2-5.4); White Blood Count 8.3 K/mm3 (4.4-11.0)
--- NOTE | 2025-05-03 20:44 | ED.VIS.FEGU ---
HPI HPI - Female History of Present Illness Chief Complaint: Narrative Narrative: Chief complaint and HPI: 30-year-old female who is who is 6 weeks by last menstrual period presents for evaluation of pelvic cramping and headache. Patient states her last menstrual cycle was 03/24/2025. States her PCP took a blood test which showed she was . Patient states for the past 2 days she has been having a headache with pelvic cramping. Denies any vaginal bleeding. Endorses nausea without vomiting. Denies any fever, chills, shortness of breath, chest pain, URI symptoms. Review of systems: See HPI Medications: As listed on the chart Allergies: As listed on the chart PFSH: Per chart Vital signs: As listed on the chart. Reviewed. Physical exam: Gen: A&O x3, NAD Head: Normocephalic, atraumatic Eyes: No sclera icterus, conjunctiva clear, PERRL ENT: Moist mucous membranes Neck: Trachea midline, full range of motion CV: RRR, no murmurs, no peripheral edema Resp: Lungs CTA BL, no w/r/c GI: Abd soft, non-distended, non-tender, no r/r/g Musc: Full ROM, no deformity Skin: Warm, dry Neuro: Alert, oriented, grossly intact, sensation intact Psych: Cooperative, appropriate mood and affect [facility] Medical History Anxiety Paresthesias Cervical radiculopathy Cervicalgia Home Medications ?Medication ?Instructions ?Recorded ?Last Taken ?Type metformin 500 mg tablet 500 mg PO DAILY 04/03/24 Unknown History ibuprofen 600 mg tablet 600 mg PO 4X/DAY PRN pain #40 tabs 02/05/25 Unknown Rx Allergy/AdvReac Type Severity Reaction Status Date / Time acetaminophen (From Vicodin) Allergy Hives Verified 05/03/25 19:30 hydrocodone (From Vicodin) Allergy Hives Verified 05/03/25 19:30 Family History Other Cancer Diabetes Seizures Social History Smoking Status: Current every day smoker tobacco type: cigarettes Tobacco: How many years used: 6 second hand exposure: Yes alcohol intake: current alcohol intake frequency: holidays/special occasions only substance use type: former substance user Date of last use: used some marijuana in the past EXAM Physical Exam Const Vital Signs: 05/03/25 19:30 05/03/25 21:30 Temperature 97.8 F Temperature Source Temporal Pulse Rate 84 72 Respiratory Rate 18 18 Blood Pressure 140/94 H 132/87 H Blood Pressure Mean 109 102 Pulse Ox 98 100 Oxygen Delivery Method Room Air MDM MDM MDM Narrative Medical decision making narrative: 30-year-old female who is who is 6 weeks by last menstrual period presents for evaluation of pelvic cramping and headache. Patient states her last menstrual cycle was 03/24/2025. States her PCP took a blood test which showed she was . Patient states for the past 2 days she has been having a headache with pelvic cramping. Denies any vaginal bleeding. Endorses nausea without vomiting. States she has been taking Tylenol with minimal relief. Differential diagnosis includes but is not limited to tension headache, migraine headache, dehydration, electrolyte abnormality, anemia, UTI, ectopic , symptomatic first trimester . Offered Tylenol for her headache although she states she wants something stronger as Tylenol is not working. I did offer morphine however told her that it can make headaches worse as well as there is some risk to the . Patient confirmed she understands of the risks but consented to morphine. Morphine, Zofran, NS bolus ordered. Given patient has no history of migraines or consistent headaches in the past we will perform CT head, however low suspicion for any intracranial abnormality. Laboratory workup ordered including transvaginal ultrasound. CBC without leukocytosis. Patient has baseline anemia of 11.7. Platelets unremarkable. BMP unremarkable. Beta-hCG 12,116. UA negative for UTI. This is also not a clean sample with squamous epithelial cells. Patient does have bacteria in her urine we will treat her for asymptomatic bacteriuria in . CT of the brain shows no acute intracranial abnormality. Transvaginal ultrasound shows intrauterine gestational sac with an estimated gestational age of 5 weeks 5 days. No pole or yolk sac is identified at this time. Represents early IUP. Mixed echogenic area within the lower uterine cavity probably representing nonspecific fluid. On reevaluation, patient's headache has improved. Patient's abdominal cramping is likely secondary to early cramping. Follow-up with her NATURAL GAS TREATING UNIT OPERATOR Lamonte. She confirmed understand the plan. Return cautions explained. Patient will discharge home Impression: 1. First trimester with pelvic cramping 2. Headache 3. Asymptomatic bacteriuria in Lab Data Labs: Laboratory Results - last 24 hr 05/03/25 05/03/25 20:30 20:41 WBC 8.3 RBC 4.10 L Hgb 11.7 L Hct 35.4 L MCV 86.3 MCH 28.5 MCHC 33.1 RDW Std Deviation 49.6 H RDW Coeff of Ghada 15.6 H Plt Count 169 MPV 10.6 Immature Gran % (Auto) 0.200 Neut % (Auto) 57.7 Lymph % (Auto) 34.3 [place] % (Auto) 5.6 Eos % (Auto) 1.8 Baso % (Auto) 0.4 Absolute Neuts (auto) 4.8 Absolute Lymphs (auto) 2.84 Nucleated RBC % 0 Sodium 136 Potassium 4.3 Chloride 104 Carbon Dioxide 21.7 Anion Gap 11 BUN 9 Creatinine 0.69 L Estim Creat Clear Calc 159.34 Est GFR (MDRD) Non-Af 120 BUN/Creatinine Ratio 12.3 Glucose 126 H Calcium 9.6 HCG, Quant 60984 H Urine Color Yellow Urine Clarity Clear Urine pH 6.0 Ur Specific [place] 1.025 Urine Protein 30 H Urine Glucose (UA) Normal Urine Ketones Negative Urine Occult Blood Negative Urine Nitrite Negative Urine Bilirubin Negative Urine Urobilinogen Normal Ur Leukocyte Esterase 25 H Urine RBC 0-5 SEEN Urine WBC 10-25 SEEN Ur Squamous Epith Cells 10-25 SEEN Ur Transition Epith Cell 0-5 SEEN Urine Bacteria 1+ Urine Mucus 0 SEEN Radiography Diagnostic Testing: Clinical Impression(s) from Imaging Studies Obstetrics Ultrasound 05/03/25 20:23 IMPRESSION: 1. Intrauterine gestational sac with an estimated gestational age of 5 weeks 5 days +/-10 days by mean sac diameter. No pole nor yolk sac is identified at this time. This likely represents a very early intrauterine . Recommend serial beta HCG levels and a short interval follow-up pelvic ultrasound. 2. Mixed echogenic area within the lower uterine cavity, probably representing nonspecific fluid. Attention should be paid on follow-up imaging. Reading Location: [id number] Brain CT 05/03/25 21:10 IMPRESSION: No acute intracranial CT abnormality. Reading Location: [facility] Discharge Plan Triage Chief Complaint: ED Provider: Ludwig Aranda Dx/Rx/DC Orders Prescriptions: No Action metformin 500 mg tablet 500 mg PO DAILY ibuprofen 600 mg tablet 600 mg PO 4X/DAY PRN (Reason: pain) Qty: 40 0RF Primary Care Provider: ARLINE CORADO Referrals: ARLINE CORADO [Other] Print Language: Turkish
[2025-05-03 20:49] LABS: Mucous, Urine 0 SEEN /hpf (<or=2+)
[2025-05-03] MEDS: 0.9% Normal Saline (1000mL) 1,000 ML 999 ML IV (21:02)
[2025-05-03 21:04] LABS: Color, Urine Yellow (Yellow); Glucose, Dipstick Normal (Normal); Ketone-Dipstick Negative (Negative); Leukocyte Esterase-Dipstick 25 /ul (Negative); Nitrite-Dipstick Negative (Negative); Occult Blood-Urine Negative /ul (Negative); Protein-Dipstick 30 mg/dl (Negative); Specific Gravity, Urine 1.025 (1.002-1.030); Urine Bilirubin Dipstick Negative (Negative)
--- NOTE | 2025-05-03 21:10 | CT_ITS ---
PROCEDURE: BRAIN/HEAD WITHOUT CONTRAST 05/03/2025 REASON FOR EXAM: HEADACHE TECHNIQUE: Procedure Code: CTBR Modality: CT Procedure: BRAIN/HEAD WITHOUT CONTRAST Coronal and Sagittal reconstruction series were provided. One or more dose reduction techniques were used (e.g., Automated exposure control, adjustment of the mA and/or kV according to patient size, use of iterative reconstruction technique. COMPARISON: 02/05/2025. FINDINGS: No acute intracranial hemorrhage. No midline shift. The ventricles are normal in size and configuration. No extra-axial fluid collection is identified. No fracture. The calvarium is intact. The visualized paranasal sinuses and mastoid air cells are clear. CT/Brain/Head without Contrast IMPRESSION: No acute intracranial CT abnormality. Reading Location: [id number]
[2025-05-03 21:27] LABS: Anion Gap 11 (5-15); BUN 9 mg/dL (4-19); BUN/Creat Ratio 12.3 RATIO (10-20); Calcium,Total 9.6 mg/dL (7.6-11.0); Carbon Dioxide 21.7 mmol/L (21.0-32.0); Chloride 104 mmol/L (98-108); Estimated Creatinine Clearance 159.34 ml/min (50-250); Glucose 126 mg/dL (70-99); Potassium 4.3 mmol/L (3.3-5.1); hCG Titer Quant., Serum 12116 mIU/mL (<9 non-preg)
[2025-05-03 21:30] VITALS: BP 132/87; PULSE 72; RESP 18; O2SAT 100
[2025-05-03 21:49] LABS: Red Blood Cells-Urine 0-5 SEEN /hpf (0-5); Squamous Epithelial Cells - UA 10-25 SEEN /hpf (5-10); Transitional Epithelial - Ur 0-5 SEEN /hpf (0-5)
[2025-05-03 23:00] VITALS: BP 134/79; PULSE 74; RESP 15; O2SAT 99
[2025-05-03 23:35] VITALS: BP 132/87; PULSE 77; RESP 18; TEMP 36.4; O2SAT 100
== END 2025-05-03 23:40 | disposition home or self-care (01) ==
PROVIDERS: Emergency Provider Surgery; Visit Provider Surgery
DX: O26.891 Other specified pregnancy related conditions, first trimester (principal); R10.9 Unspecified abdominal pain; R51.9 Headache, unspecified; R82.71 Bacteriuria; O99.331 Smoking (tobacco) complicating pregnancy, first trimester; F17.210 Nicotine dependence, cigarettes, uncomplicated; Z3A.01 Less than 8 weeks gestation of pregnancy
CPT/HCPCS: 70450; 76817; 80048; 81001; 84702; 85025; 96361; 96374; 96375; 99282; J2405

== ENCOUNTER 2025-05-06 17:59 | Emergency (ER) | payer MEDICAID, SELFPAY ==
[2025-05-06 18:00] VITALS: BP 148/89; PULSE 98; RESP 16; TEMP 36.6; O2SAT 99; BMI 33.8
--- NOTE | 2025-05-06 18:30 | ED.RN ---
bleeding more sunday after got off work and was bright red. has slowed down to where is only seeing streaks now when amy and erasmo
--- NOTE | 2025-05-06 19:23 | US_ITS ---
PROCEDURE: TRANSVAGINAL W/PREG US 05/06/2025 REASON FOR EXAM: VAGINAL BLEEDING TECHNIQUE: Procedure Code: USTVAGP Modality: US Procedure: TRANSVAGINAL W/PREG US COMPARISON: 05/03/2025 FINDINGS Single intrauterine gestational sac measuring 1.4 cm corresponding with gestational age of 6 weeks and 2 days. Yolk sac measures 3 mm. CRL measures 7 mm corresponding with 6 weeks and 5 days. heart rate of 123 beats per minute. Complex structure is noted adjacent to gestational sac measuring 2.2 x 3.4 x 1.8 cm. Overall sonographic gestational age of 6 weeks and 4 days with KORINA of 12/26/2025. Uterus measures 12.8 x 9.3 x 7.2 cm. No uterine fibroids are noted. Cervix is closed. No free fluid within the cul-de-sac. Right ovary measures 3.7 x 2.0 x 1.7 cm and left ovary measures 3.4 x 2.4 x 2.5 cm. A cyst is noted within the right ovary measures 1.5 x 1.0 x 0.8 cm. US/Transvaginal w/Preg US IMPRESSION: Sonographic gestational age of 6 weeks and 4 days with KORINA of 12/26/2025. Interval visualization of yolk sac and embryo. Again seen is a complex structure adjacent to the gestational sac now measuring 2.2 x 3.4 x 1.8 cm. Reading Location: [id number]
--- NOTE | 2025-05-06 19:27 | ED.VIS.FEGU ---
HPI HPI - Female History of Present Illness Chief Complaint: Vag Bld, Preg Narrative Narrative: 30-year-old female, G7, P5 at approximately 6 weeks gestation presents with vaginal bleeding that began 2 days ago. Of note, she states that 3 days ago she was seen on Sunday in the emergency department for a headache. She had some pelvic cramping. She had been having regular menses before. Back in February, 2 months ago she relates history that she did a home test which was positive, but when she had a urine test performed, was negative. This last month, she found out that she was . When she was seen 3 days ago, she was not having any vaginal bleeding. She states that the following day, she started having vaginal bleeding that was heavier, but now has lightened up to the point where she is only spotting. She passed clots as well. She presents because of the vaginal bleeding and the fact that she has not been able to see her SLASHER TENDER HELPER for this at [facility]. She presents because of increased vaginal bleeding that started 2 days ago, and pelvic cramping as well. [facility] Medical History Migraine Anxiety Paresthesias Cervical radiculopathy Cervicalgia Home Medications ?Medication ?Instructions ?Recorded ?Last Taken ?Type metformin 500 mg tablet 500 mg PO DAILY 04/03/24 Unknown History ibuprofen 600 mg tablet 600 mg PO 4X/DAY PRN pain #40 tabs 02/05/25 Unknown Rx cephalexin 500 mg capsule 500 mg PO TID 5 days #15 caps 05/03/25 Unknown Rx vitamins no.102-iron 90 1 cap PO DAILY #30 caps 05/06/25 Unknown Rx mg-folate 1 mg-dha 200 mg capsule Allergy/AdvReac Type Severity Reaction Status Date / Time acetaminophen (From Vicodin) Allergy Hives Verified 05/06/25 18:00 hydrocodone (From Vicodin) Allergy Hives Verified 05/06/25 18:00 Family History Other Cancer Diabetes Seizures Social History Smoking Status: Current some day smoker tobacco type: cigarettes Tobacco: How many years used: 6 second hand exposure: Yes alcohol intake: current alcohol intake frequency: holidays/special occasions only substance use type: former substance user Date of last use: used some marijuana in the past ROS ROS ED ROS Narrative Review of systems is positive for return of headache, but vaginal bleeding with . Positive pelvic cramping. No fevers or chills, no exacerbating or alleviating factors. EXAM Physical Exam Narrative Exam Narrative: Afebrile. Vital signs noted. Nontoxic-appearing. Cardiovascular examination is regular rate and rhythm. Lungs clear to auscultation bilaterally. Abdomen soft and nontender with positive bowel sounds. No rebound or guarding. Neurological examination nonfocal and nonlateralizing. Upon entering the room, she is looking at her cellular telephone and using it. Const Vital Signs: 05/06/25 18:00 05/06/25 20:33 05/06/25 22:07 Temperature 97.9 F 97.2 F L Temperature Source Temporal Pulse Rate 98 84 74 Respiratory Rate 16 14 16 Blood Pressure 148/89 H 124/74 H 133/87 H Blood Pressure Mean 108 90 102 Pulse Ox 99 99 100 Oxygen Delivery Method Room Air MDM MDM MDM Narrative Medical decision making narrative: Differential diagnosis includes but not limited to ectopic versus margarita miscarriage. However, I did review her previous ED visit. She had an ultrasound which showed an intrauterine gestation at at least 5 weeks, so I doubt ectopic . I will perform a pelvic examination with video photographer to see the extent of bleeding that she is having although she states its lightened up. ABO Rh and repeat quantitative measurement will be obtained to see trending upward versus downward. Repeat ultrasound will be performed as well mainly to see if an intrauterine gestation is still present. I reviewed her laboratory work, and she has a normal white count of 7.6 with hemoglobin stable at 11.7. When compared to prior, no significant change. Platelet count 180. CMP is significant for creatinine low at 0.66 with normal BUN of 9, sodium and potassium normal. LFTs are grossly normal. hCG quantitative appropriately elevated at 22,527. When compared to prior, it is up from approximately 12,000 a few days ago. Blood type is O+. I do not feel she needs RhoGAM. Urinalysis negative for infection. I do not feel antibiotics are indicated. Patient deferred pelvic examination as the results of her ultrasound so a gestational age of an intrauterine at 6 weeks and 4 days. heart rate of 123 bpm. According to radiology, Again seen is a complex structure adjacent to the gestational sac now measuring 2.2 x 3.4 x 1.8 cm. I reviewed the prior ultrasound and it was present there, and serial ultrasound and follow-up suggested. At this point in time, patient states that she has an appointment with her SLASHER TENDER HELPER on Sunday, 5 days from now. She requested that I write her a prescription for vitamins because she feels hers may be . I feel she can be discharged to follow-up. Return instructions to the emergency department were reviewed. Disposition is discharged home in stable condition. History & Record Review Discussion w/independent historian: Patient Additional record(s) reviewed:: Prior ED visit and Prior labs Lab Data Attestation: I reviewed the patient's lab results. Labs: Laboratory Results - last 24 hr 05/06/25 05/06/25 19:43 20:53 WBC 7.6 RBC 4.04 L Hgb 11.7 L Hct 34.9 L MCV 86.4 MCH 29.0 MCHC 33.5 RDW Std Deviation 48.6 H RDW Coeff of Ghada 15.2 H Plt Count 180 MPV 11.2 Immature Gran % (Auto) 0.300 Neut % (Auto) 58.5 Lymph % (Auto) 31.8 [place] % (Auto) 6.9 Eos % (Auto) 2.2 Baso % (Auto) 0.3 Absolute Neuts (auto) 4.5 Absolute Lymphs (auto) 2.43 Nucleated RBC % 0 Sodium 136 Potassium 4.1 Chloride 103 Carbon Dioxide 23.3 Anion Gap 9 BUN 9 Creatinine 0.66 L Estim Creat Clear Calc 165.01 Est GFR (MDRD) Non-Af 121 BUN/Creatinine Ratio 13.3 Glucose 115 H Calcium 9.3 Total Bilirubin 0.19 AST 15 ALT 13 Alkaline Phosphatase 57 Total Protein 6.9 Albumin 4.1 Globulin 2.8 Albumin/Globulin Ratio 1.5 HCG, Quant 81090 H Urine Color Yellow Urine Clarity Clear Urine pH 6.0 Ur Specific [place] 1.020 Urine Protein Negative Urine Glucose (UA) Normal Urine Ketones Negative Urine Occult Blood 10 H Urine Nitrite Negative Urine Bilirubin Negative Urine Urobilinogen Normal Ur Leukocyte Esterase 25 H Urine RBC 0-5 SEEN Urine WBC 0-5 SEEN Ur Squamous Epith Cells 5-10 SEEN Urine Bacteria 0 SEEN Urine Mucus 0 SEEN Blood Type O POSITIVE Radiography Diagnostic Testing: Clinical Impression(s) from Imaging Studies Obstetrics Ultrasound 05/06/25 19:23 IMPRESSION: Sonographic gestational age of 6 weeks and 4 days with KORINA of 12/26/2025. Interval visualization of yolk sac and embryo. Again seen is a complex structure adjacent to the gestational sac now measuring 2.2 x 3.4 x 1.8 cm. Reading Location: [facility] Discharge Plan Triage Chief Complaint: Vag Bld, Preg ED Provider: René Mohan Dx/Rx/DC Orders Clinical Impression: Vaginal bleeding in , Threatened miscarriage, Abnormal collection of fluid in uterine cavity Instructions: Vaginal Bleeding During , ED Abdominal Pain, Early Prescriptions: New PNV [id number] 90 mg iron- 1 mg-200 mg capsule 1 cap PO DAILY Qty: 30 0RF No Action metformin 500 mg tablet 500 mg PO DAILY ibuprofen 600 mg tablet 600 mg PO 4X/DAY PRN (Reason: pain) Qty: 40 0RF cephalexin 500 mg capsule 500 mg PO TID 5 Days Qty: 15 0RF Primary Care Provider: ARLINE CORADO Referrals: NOT,DEFINED [Non-Staff, None] Activity Restrictions/Additional Instructions: vitamins as directed. Follow-up with your SLASHER TENDER HELPER as scheduled. You will most likely need another ultrasound performed as on your last 2 ultrasound there was an abnormal fluid collection noted adjacent to the gestational sac. Return to the emergency department with increased vaginal bleeding or cramping, new or worsening symptoms. Print Language: Occitan Disposition Disposition: Home, Self Care Discharge Date/Time: 05/06/25 22:08
[2025-05-06] MEDS: 0.9% Normal Saline (1000mL) 1,000 ML 999 ML IV (19:46)
[2025-05-06 20:05] LABS: Hematocrit 34.9 % (37-47); Hemoglobin 11.7 g/dL (12.0-15.0); Immature Granulocytes Count 0.020 X10^3/uL (0.0-0.0); Mean Corp Hgb Conc 33.5 g/dL (32-36); Mean Corpuscular Volume 86.4 fL (81-99); Mean Platelet Vol. 11.2 fl (6.2-12.0); NRBC Flagged by Analyzer 0 % (0-5); Platelet Count 180 K/mm3 (150-450); RBC Distribution Width CV 15.2 % (11.6-14.6); RBC Distribution Width SD 48.6 fl (35.1-43.9); Red Blood Count 4.04 M/mm3 (4.2-5.4); White Blood Count 7.6 K/mm3 (4.4-11.0)
[2025-05-06 20:33] VITALS: BP 124/74; PULSE 84; RESP 14; O2SAT 99
[2025-05-06 20:41] LABS: AST(SGOT) 15 U/L (<=31); Alanine Aminotransfer ALT/SGPT 13 U/L (<=34); Albumin, Serum 4.1 g/dL (3.5-5.0); Alkaline Phosphatase 57 U/L (35-104); Anion Gap 9 (5-15); BUN 9 mg/dL (4-19); BUN/Creat Ratio 13.3 RATIO (10-20); Calcium,Total 9.3 mg/dL (7.6-11.0); Carbon Dioxide 23.3 mmol/L (21.0-32.0); Chloride 103 mmol/L (98-108); Estimated Creatinine Clearance 165.01 ml/min (50-250); Globulin 2.8 g/dL (2.2-4.2); Glucose 115 mg/dL (70-99); Potassium 4.1 mmol/L (3.3-5.1)
[2025-05-06 21:04] LABS: Mucous, Urine 0 SEEN /hpf (<or=2+)
[2025-05-06 21:07] LABS: hCG Titer Quant., Serum 22527 mIU/mL (<9 non-preg)
[2025-05-06 21:21] LABS: Color, Urine Yellow (Yellow); Glucose, Dipstick Normal (Normal); Ketone-Dipstick Negative (Negative); Leukocyte Esterase-Dipstick 25 /ul (Negative); Nitrite-Dipstick Negative (Negative); Occult Blood-Urine 10 /ul (Negative); Protein-Dipstick Negative (Negative); Specific Gravity, Urine 1.020 (1.002-1.030); Urine Bilirubin Dipstick Negative (Negative)
[2025-05-06 21:36] LABS: Red Blood Cells-Urine 0-5 SEEN /hpf (0-5); Squamous Epithelial Cells - UA 5-10 SEEN /hpf (5-10)
[2025-05-06 22:07] VITALS: BP 133/87; PULSE 74; RESP 16; TEMP 36.2; O2SAT 100
== END 2025-05-06 22:08 | disposition home or self-care (01) ==
PROVIDERS: Emergency Provider Emergency Medicine; Visit Provider Emergency Medicine
DX: O20.0 Threatened abortion (principal); Z3A.01 Less than 8 weeks gestation of pregnancy; O26.891 Other specified pregnancy related conditions, first trimester; R93.89 Abnormal findings on diagnostic imaging of other specified body structures; O99.331 Smoking (tobacco) complicating pregnancy, first trimester; F17.210 Nicotine dependence, cigarettes, uncomplicated
CPT/HCPCS: 76817; 80053; 81001; 84702; 85025; 86900; 86901; 96360; 96361; 99283; A4216

== ENCOUNTER 2025-05-10 01:59 | Emergency (ER) | payer MEDICAID, SELFPAY ==
[2025-05-10 01:59] VITALS: BP 130/84; PULSE 108; RESP 18; TEMP 36.9; O2SAT 98; BMI 34.7
[2025-05-10 02:46] LABS: Hematocrit 33.7 % (37-47); Hemoglobin 11.4 g/dL (12.0-15.0); Immature Granulocytes Count 0.020 X10^3/uL (0.0-0.0); Mean Corp Hgb Conc 33.8 g/dL (32-36); Mean Corpuscular Volume 86.4 fL (81-99); Mean Platelet Vol. 10.8 fl (6.2-12.0); NRBC Flagged by Analyzer 0 % (0-5); Platelet Count 171 K/mm3 (150-450); RBC Distribution Width CV 15.0 % (11.6-14.6); RBC Distribution Width SD 47.8 fl (35.1-43.9); Red Blood Count 3.90 M/mm3 (4.2-5.4); White Blood Count 7.4 K/mm3 (4.4-11.0)
[2025-05-10 03:32] LABS: hCG Titer Quant., Serum 36259 mIU/mL (<9 non-preg)
--- NOTE | 2025-05-10 03:44 | EDS_ITS ---
HPI HPI - Female History of Present Illness Chief Complaint: Vag Bld, Preg Informant: patient Narrative Narrative: Patient is a 30-year-old female who is a G7, P5 at approximately 6 weeks . She was seen on May 03 and May 06 secondary to lower abdominal cramping and vaginal bleeding. She had an ultrasound done on the and with documented a IUP but also noticed an abnormal fluid collection adjacent to the gestational sac. The patient states that this evening she once again noticed some abdominal lower cramping and then went to the bathroom and had blood from the vagina. She states that she does not have a history of bleeding disorder nor does she take blood thinners. 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 with her ROTARY FURNACE OPERATOR in roughly 24 hours but because of the return bleeding she was concerned and presents for evaluation [facility] Medical History Migraine Anxiety Paresthesias Cervical radiculopathy Cervicalgia Home Medications ?Medication ?Instructions ?Recorded ?Last Taken ?Type cephalexin 500 mg capsule 500 mg PO TID 5 days #15 cap s 05/03/25 Unknown Rx vitamins no.102-iron 90 1 cap PO DAILY #30 ca ps 05/06/25 Unknown Rx mg-folate 1 mg-dha 200 mg capsule Allergy/AdvReac Type Severity Reaction Status Date / Time acetaminophen (From Vicodin) Allergy Hives Verified 05/10/25 02:02 hydrocodone (From Vicodin) Allergy Hives Verified 05/10/25 02:02 Family History Other Cancer Diabetes Seizures Social History Smoking Status: Current every day smoker tobacco type: cigarettes Tobacco: How many years used: 6 second hand exposure: Yes alcohol intake: current alcohol intake frequency: holidays/special occasions on ly substance use type: former substance user Date of last use: used some marijuana in the past ROS ROS ED Constitutional Constitutional ED: Denies chills or fever(s) Eyes Eyes: Denies change in vision ENT ENT ED: Denies sore throat Cardiovascular Cardiovascular: Denies chest pain Respiratory/Chest Respiratory/Chest: Denies cough or dyspnea Gastrointestinal Gastrointestinal: Reports abdominal pain; Denies diarrhea, nausea or vomiting Genitourinary Genitourinary ED: Reports other Details: Positive vaginal bleeding Musculoskeletal Musculoskeletal: Denies myalgias Integumentary Denies rash Neurologic Neurologic: Denies headache(s) Hematologic/Lymphatic Hematologic/Lymphatic: Denies easy bleeding or easy bruising EXAM Physical Exam Const Vital Signs: 05/10/25 01:59 05/10/25 02:43 05/10/25 03:54 Temperature 98.5 F 97.1 F L Temperature Source Oral Pulse Rate 108 H 77 Respiratory Rate 18 16 Respiratory Effort Normal Non-Labored Respiratory Pattern Normal Blood Pressure 130/84 H 140/91 H Blood Pressure Mean 99 107 Pulse Ox 98 99 Oxygen Delivery Method Room Air Positive well nourished and well developed General Appearance ED: well developed; Negative for pallor HEENT HEENT Narrative: Normocephalic atraumatic Eyes PERRL and EOMs intact bilaterally General Eye ED: Negative for pale conjunctiva or scleral icterus Neck supple Resp normal respiratory effort and clear to auscultation bilaterally Cardio regular rate and regular rhythm GI normal to inspection, nondistended, normoactive bowel sounds, soft to palpation, non-tender, non-distended and no masses GI Narrative: No voluntary guarding or rigidity or pulsatile mass. No peritoneal signs. No organomegaly Auscultation: normoactive bowel sounds Palpation: soft Extremity normal to inspection and full ROM Neuro oriented x3, CN's II-XII intact bilaterally and no sensory deficits noted Sensorium / Orientation: alert Motor Exam: strength 5/5 throughout Psych mental status grossly normal Skin no rashes or lesions noted and no wounds General Skin Exam: Negative for jaundice or pallor MDM MDM MDM Narrative Medical decision making narrative: Patient presented complaining of abdominal cramping with passage of bright red blood per vagina. However she stated it was 1 episode and has not reoccurred or continued. Her previous chart was reviewed and the ultrasound report from May 03 and was reviewed indicating an IUP. As she is only 6 weeks along and there is a known IUP I do not feel the need to repeat another emergent ultrasound. At this time basic blood work be obtained to assess for acute blood loss anemia. Her quantitative value will be measured as well to ensure it is increasing which would correlate with normal progression versus potential miscarriage. Chart review revealed that her blood type is O+ and therefore there is no need for RhoGAM. The patient was watched in the ER and she had no return of bleeding. Therefore at this time as her H&H is stable she does not require RhoGAM and her quantitative hCG value is increasing I do not feel the need for repeat ultrasound or emergent ROTARY FURNACE OPERATOR consultation and she is otherwise safe for discharge. History & Record Review Discussion w/independent historian: Patient Additional record(s) reviewed:: Prior ED visit and Prior labs Lab Data Attestation: I reviewed the patient's lab results. Labs: Laboratory Results - last 24 hr 05/10/25 02:42 WBC 7.4 RBC 3.90 L Hgb 11.4 L Hct 33.7 L MCV 86.4 MCH 29.2 MCHC 33.8 RDW Std Deviation 47.8 H RDW Coeff of Ghada 15.0 H Plt Count 171 MPV 10.8 Immature Gran % (Auto) 0.300 Neut % (Auto) 54.4 Lymph % (Auto) 37.3 [place] % (Auto) 5.7 Eos % (Auto) 2.0 Baso % (Auto) 0.3 Absolute Neuts (auto) 4.0 Absolute Lymphs (auto) 2.75 Nucleated RBC % 0 HCG, Quant 22159 H Discharge Plan Triage Chief Complaint: Vag Bld, Preg ED Provider: Nelson Ulloa Dx/Rx/DC Orders Clinical Impression: Vaginal bleeding in , Anxiety, Abnormal collection of fluid in uterine cavity Instructions: Bleeding During Early Prescriptions: No Action cephalexin 500 mg capsule 500 mg PO TID 5 Days Qty: 15 0RF PNV [id number] 90 mg iron- 1 mg-200 mg capsule 1 cap PO DAILY Qty: 30 0RF Stand Alone Forms: ED Work / School Excuse Primary Care Provider: ARLINE CORADO Referrals: ARLINE CORADO [Other] Activity Restrictions/Additional Instructions: Please keep your appointment for tomorrow/Sunday, May 11 with your ROTARY FURNACE OPERATOR. Your blood volume has remained stable and your marker increased from 12,000-22,000-36,000 indicating a normal progression in . Return to the ER should you have any further concerns Print Language: Wolof Disposition Disposition: Home, Self Care Discharge Date/Time: 05/10/25 03:55
[2025-05-10 03:54] VITALS: BP 140/91; PULSE 77; RESP 16; TEMP 36.2; O2SAT 99
== END 2025-05-10 03:55 | disposition home or self-care (01) ==
PROVIDERS: Emergency Provider Emergency Medicine; Visit Provider Emergency Medicine
DX: O20.9 Hemorrhage in early pregnancy, unspecified (principal); O99.341 Other mental disorders complicating pregnancy, first trimester; F41.9 Anxiety disorder, unspecified; R93.89 Abnormal findings on diagnostic imaging of other specified body structures; O26.891 Other specified pregnancy related conditions, first trimester; R10.9 Unspecified abdominal pain; O99.331 Smoking (tobacco) complicating pregnancy, first trimester; F17.210 Nicotine dependence, cigarettes, uncomplicated; Z3A.01 Less than 8 weeks gestation of pregnancy
CPT/HCPCS: 84702; 85025; 99284; A4216

== ENCOUNTER 2025-06-17 03:19 | Emergency (ER) | payer MEDICAID, SELFPAY ==
[2025-06-17 03:22] VITALS: BP 127/90; PULSE 98; RESP 16; TEMP 37.2; O2SAT 98; BMI 35.4
--- OUTSIDE RECORDS SUMMARY | 2025-06-17 03:50 | XMS RPT_ITS | CCD ---
Author Organization [facility] Care Team Providers Care Assistant Front End Manager Name Role Phone Unavailable Primary Care Provider Unavailabl e PHYSICIAN, NONE Primary Care Physician Unavailab le NONE, NONE Consulting Unavailable NONE, NONE Primary Care Unavailable COOPER TERRY MD Attending Unavailable COOPER TERRY MD Admitting Unavailable Unavailable Primary Care Provider Unavailabl Alvin Arzate Emergency Provider Call, On Primary Care Provider UnavailCelso Ramachandran Primary Care Provider [phone] Unavailable Primary Care Provider UnavailMARCELO Gotti Attending Unavailable Jeremy Lim Emergency Provider Alex Avila Primary Care Provider Vern Henry Emergency Provider [phone] Ruben Jacob Primary Care Provider [phone] Juan Tidwell Emergency Provider Call, On Primary Care Unavailable Jeremy Lim Attending Unavailable Call, On Primary Care Unavailable Vern Henry Attending Unavailable Call, On Primary Care Unavailable Leandra Keller Attending Unavailable Call, On Primary Care Unavailable Juan Tidwell Attending Unavailable Pcp SENIOR TECHNICAL PROJECT MANAGER, No Primary Care Provider Unavailtaylor CORADO APRN-MID LEVEL GAME DESIGNER, ARLINE Suarez Primary Care Physicia n HIRA LANGLEY MD Attending Unavailable MICKIE LANIER-ARLINE GORDON Primary Care Unava ilable SURYA SENIOR TECHNICAL PROJECT 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, ABDI Attending Unavaila ble JASBIR DO, MARCELO Waters Primary Care Unavailab martha MAGALLANES MD, DR JOSÉ MIGUEL Waters Attending Unavailable JASBIR DOMARCELO Primary Care Unavailab le TARSHA PA-C, ERLINDA Fuller Attending Unavailabl e JASBIR DOMARCELO Primary Care Unavailab le JASBIR DO, MARCELO Waters Primary Care Unavailab le GALINDO SENIOR TECHNICAL PROJECT 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, LIZETTE Attending Unavailtaylor LANGLEY MD, HIRA Carrington Attending Unavailable MICKIE SENIOR TECHNICAL PROJECT 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, ARLINE M Primary Care Unava ilable MICKIE SENIOR TECHNICAL PROJECT 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, RALINE Suarez Attending Unava ilable MICKIE SENIOR TECHNICAL PROJECT 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, ARLINE M Primary Care Unava ilable SURYA SENIOR TECHNICAL PROJECT 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, ABDI Attending Unavaila ble JASBIR DO, MARCELO Waters Primary Care Unavailab martha WILLINGHAM PA-C, ERLINDA Fuller Attending Unavailabl e JASBIR DO, MARCELO Waters Primary Care Unavailab martha MAGALLANES MD, DR JOSÉ MIGUEL Waters Attending Unavailable JASBIR DOMARCELO Primary Care Unavailab martha MAGALLANES MD, DR JOSÉ MIGUEL Waters Attending Unavailable JASBIR DOMARCELO Primary Care Unavailab le SURYA SENIOR TECHNICAL PROJECT 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, ABDI Attending Unavaila ble JASBIR DOMARCELO Primary Care Unavailab martha MAGALLANES MD, DR JOSÉ MIGUEL Waters Attending Unavailable JASBIR DOMARCELO Primary Care Unavailab martha WILLINGHAM PA-C, ERLINDA Fuller Attending Unavailabl e JABSIR DO, MARCELO Waters Primary Care Unavailab le Pcp SENIOR TECHNICAL PROJECT MANAGER, No Primary Care Provider Unavailabl e HAURY, SUSHIL Referring Unavailable HAURY, SUSHIL Referring Unavailable HAURY, SUSHIL Attending Unavailable SELF Referring Unavailable HAURY, SUSHIL Referring Unavailable LEELA CURRIE Attending Unavailable HAURY, SUSHIL Referring Unavailable JOSE ARANDA Attending Unavailable HAURY, SUSHIL Referring Unavailable MICKIE SENIOR TECHNICAL PROJECT 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, ARLINE M Primary Care Unava ilable CLEMENCIA ALONZO, DELL Attending Unavailable Care Physician, No Primary Primary Care Provider Unavailable Stefan ALONZO, Dr. Farooq Emergency Provider Dr. Oseas Aviles MD Attending Provider Dr. Nelson Ulloa DO Emergency Provider ARLINE CORADO Primary Care Provider ARLINE CORADO Primary Care Unavailabl e MICKIE SENIOR TECHNICAL PROJECT 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, ARLINE M Primary Care Unava ilable MICHEAL LANIER, ROMINA, JOSE Waters Attending Unavailable Laila JOHN, Dr. Damon Attending Provider MICKIE SENIOR TECHNICAL PROJECT 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, ARLINE M Attending Unava ilable MICKIE SENIOR TECHNICAL PROJECT 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, ARLINE M Primary Care Unava ilable PAMELA MEZA MD Attending Unavailable MICKIE SENIOR TECHNICAL PROJECT 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, ARLINE Suarez Primary Care Unava ilable Care Physician, No Primary Primary Care Physicia n Mell Aviles MD, Dr. Farooq Attending Physician Stefan ALONZO, Dr. Farooq Emergency Department Physici an Laila JOHN, Dr. Damon Attending Physician Laila JOHN, Dr. Damon Emergency Department Physic shobha ARLINE CORADO Primary Care Physician Manoj JOHN, Dr. Munroe Emergency Departmen t Physician René Mohan MD Emergency Department Physician MICKIE ARLINE Primary Care Physician Nelson Ulloa Attending Unavailable JOHN, DESTIN Primary Care Unavailable Nelson Ulloa Attending Unavailable Care Physician, No Primary Primary Care Unava ilable Care Physician, No Primary Primary Care Unava ilable Abhinav Sofia Attending Unavailable Oseas Aviles Attending Unavailable Care Physician, No Primary Primary Care Unava ilable Nelson Ulloa Attending Unavailable Care Physician, No Primary Primary Care Unava ilable Oseas Aviles Attending Unavailable Care Physician, No Primary Primary Care Unava ilable KAITLYNTA, DESTIN Primary Care Unavailable Nelson Ulloa Attending Unavailable Nelson Ulloa Attending Unavailable JOHN, DESTIN Primary Care Unavailable Ludwgi Aranda Attending Unavailabl e FINTA, DESTIN Primary Care Unavailable René Mohan Attending Unavailable KAITLYNTA, DESTIN Primary Care Unavailable Manoj JOHN, Dr. Munroe Attending Physician René Mohan MD Attending Physician MARLENA LOWERY DO Attending Unavailable MICKIE SENIOR TECHNICAL PROJECT 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, ARLINE M Primary Care Unava ilable MICKIE SENIOR TECHNICAL PROJECT 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, ARLINE M Primary Care Unava ilable SAIGE ALONZO, CASEY King Attending Unavailable MICKIE SENIOR TECHNICAL PROJECT MANAGER-[facility], ARLINE Suarez Attending Unava ilable MICKIE SENIOR TECHNICAL PROJECT 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, ARLINE M Primary Care Unava ilable MICKIE SENIOR TECHNICAL PROJECT 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, ARLINE M Primary Care Unava ilable SAIGE ALONZO, CASEY King Consulting Mell MOULTON MD, CASEY King Attending Unavailable MICKIE SENIOR TECHNICAL PROJECT 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, ARLINE Suarez Attending Unava ilable MICKIE SENIOR TECHNICAL PROJECT 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, ARLINE M Primary Care Unava ilable MICKIE SENIOR TECHNICAL PROJECT 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, ARLINE M Attending Unava ilable MICKIE SENIOR TECHNICAL PROJECT 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, ARLINE M Primary Care Unava ilable LUCRETIA ALONZO, DR MARIANNA Wood Attending Unavailabl e MICKIE SENIOR TECHNICAL PROJECT 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, ARLINE M Primary Care Unava ilable Allergies Allergy Classification Reported Allergen(s) Allergy Type Date of Onset Reaction(s) Facility (16 sources) Acetaminophen / HYDROcodone; Translations: [acetaminophen-hy drocodone] Drug Allergy 2 [facility] (19 sources) Acetaminophen; Translations: [ACETAMINOPHEN] Drug Allergy 1 [facility] (19 sources) HYDROcodone; Translations: [HYDROCODONE] Drug Allergy [address] [facility] (4 sources) Acetaminophen / HYDROcodone; Translations: [HYDROCODONE-ACET AMINOPHEN] Drug Allergy 2 [facility] (1 source) Acetaminophen Drug Allergy 4 [facility] (1 source) HYDROcodone Drug Allergy 4 [facility] (1 source) Acetaminophen Drug Allergy 5 [facility] (1 source) HYDROcodone Drug Allergy 5 [facility] Medications Current Medications Medication Drug [...] on above: Take 2 tablets by mo ut every 6 hours as needed for Pain. acetaminophen 300 mg / butalbital 50 mg / caffeine 40 mg oral capsule (7 sources) Barbiturate, Central Nervous System Stimulant, Methylxanthine Start: End: take 1 capsule by mouth every four hours as needed Fioricet oral capsule - use generic Fioricet tablet Dose = 1 cap(s), Oral, q4h, PRN as needed, X 7 day(s), # 20 cap(s), 0 Refill(s) Start Date: 09/30/24 Stop Date: 10/07/24 Status: Ordered Quantity: 20.0 Unit: cap(s) Repeat number: 1 Start: 05-18-2024 End: 06-16-2024 Ckcqfvvcdp-Kzwdukbebkvib-Lnj f (Fioricet) 50-300-40 mg capsule Discontinued 1 NMA PO THREE TIMES A DAY as needed for pain 15 0 May 18, 2024 12:00am June 16, 2024 7:06am acetaminophen 325 mg / oxyCODONE hydrochloride 5 mg oral tablet (1 source) Opioid Agonist Start: 05-14-2025 End: 05-19-2025 take 1 tablet by mouth every six hours as needed for pain Percocet 5 mg-325 mg oral tablet Dose = 1 tab(s), Oral, q6h, PRN Pain, X 5 day(s), # 12 tab(s), 0 Refill(s), Pharmacy: [facility] #[id number], Post-op pain, 177.8, cm, 05/14/25 11:40:00 EDT, Height, 107.8, kg, 05/14/25 11:40:00 EDT, Dosing Weight Start Date: 05/14/25 Stop Date: 05/19/25 Status: Ordered Medication Dispense Status: Completed Quantity: 12.0 Unit: tab(s) Total Allowed Fills: 1 Fills Dispensed: 0 Indications: Other acute postprocedural pain; amLODIPine 5 mg oral tablet (4 sources) Dihydropyridine Calcium Channel Andrew Start: 12-12-2023 take 1 tablet by mouth once daily amLODIPine (NORVASC) 5 mg tablet Take 1 tablet by mouth once daily. 30 tablet 12/12/2023 Active Blood Glucose Test Machine (4 sources) Start: 03-05-2024 Blood Glucose Test Machine See Instructions, 1 glucometer, # 1 EA, 0 Refill(s), Pharmacy: [facility] #[id number], Type 2 diabetes mellitus, 177.8, cm, 02/19/24 15:03:00 EDT, Height, 93, kg, 02/05/24 15:51:00 EDT, Dosing Weight Start Date: 03/05/24 Status: Ordered Medication Dispense Status: Completed Quantity: 1.0 Unit: EA Total Allowed Fills: 1 Fills Dispensed: 0 Indications: Type 2 diabetes mellitus without complications; Start: 03-05-2024 Blood Glucose Test Machine See Instructions, 1 glucometer, # 1 EA, 0 Refill(s), Pharmacy: [facility] #[id number], Type 2 diabetes mellitus, 177.8, cm, 02/19/24 15:03:00 EDT, Height, 93, kg, 02/05/24 15:51:00 EDT, Dosing Weight Start Date: 03/05/24 Status: Ordered Quantity: 1.0 Unit: EA Repeat number: 1 Indications: Type 2 diabetes mellitus without complications; Start: 03-05-2024 Blood Glucose Test Machine See Instructions, 1 glucometer, # 1 EA, 0 Refill(s), Pharmacy: [facility] #[id number], Type 2 diabetes mellitus, 177.8, cm, 02/19/24 [...] Refill(s), 109.1 Start Date: 03/07/22 Status: Ordered cephalexin 500 mg oral capsule (7 sources) Cephalosporin Antibacterial Start: 05-03-2025 take 1 capsule by mouth three times daily Cephalexin 500 mg capsule Active 500 mg PO THREE TIMES A DAY 15 5 May 03, 2025 12:00am Complies with drug therapy Start: 08-11-2023 take 500 mg by mouth twice daily Cephalexin [Keflex] 500 MG PO TWICE A DAY August 11, 2023 Active cyclobenzaprine hydrochloride 5 mg oral tablet (8 sources) Muscle Relaxant Start: 03-07-2022 End: 03-14-2022 cyclobenzaprine 5 mg oral tablet Dose : 5 mg = 1 tab(s), Oral, TID, X 7 day(s), # 21 tab(s), 0 Refill(s), 03/14/22 5:57:00 EDT, [facility]acy: [facility] #[id number], 177.8, cm, 03/05/22 10:05:00 EDT, Height Start Date: 03/07/22 Stop Date: 03/14/22 Status: Ordered Start: 01-17-2022 cyclobenzaprin e Oral, 0 Refill(s) Start Date: 01/17/22 Status: Ordered Start: 06-01-2021 End: 04-03-2024 take 5-10 mg by mouth three times daily as needed for muscle spasms Cyclobenzaprine 10 mg tablet Discontinued 5 - 10 mg PO THREE TIMES A DAY as needed for muscle spasm 30 June 01, 2021 12:00am April 03, 2024 6:17am Dexcom G7 [place]yer (4 sources) Start: 08-22-2024 Dexcom G7 Read er See Instructions, Use reader daily for blood sugar checks. Keep reader within 20 feet of the sensor and transmitter, # 1 EA, 0 Refill(s), [facility]acy: [facility] #[id number], Type 2 diabetes mellitus, 177.8, cm, 08/22/24 [...] transmitter, # 1 EA, 0 Refill(s), Pharmacy: [facility] #[id number], Type 2 diabetes mellitus, 177.8, cm, 08/22/24 [...] transmitter, # 1 EA, 0 Refill(s), Pharmacy: [facility] #[id number], Type 2 diabetes mellitus, 177.8, cm, 08/22/24 14:59:00 EST, Height, 102.3, kg, 08/22/24 14:59:00 EST, Dosing Weight Start Date: 08/22/24 Status: Ordered Quantity: 1.0 Unit: EA Repeat number: 1 Indication: Type 2 diabetes mellitus without complications Dexcom G7 Sensor (4 sources) Start: 08-22-2024 Dexcom G7 Sens or See Instructions, Place once sensor to the back of the upper arm every 10 days. Use reader or phone lisette for daily blood sugar checks. 1 month supply., # 3 EA, 0 Refill(s), [facility]acy: [facility] #[id number], Type 2 diabetes mellitus, 177.8, cm, 08/22/24 [...] supply., # 3 EA, 0 Refill(s), Pharmacy: [facility] #[id number], Type 2 diabetes mellitus, 177.8, cm, 08/22/24 [...] supply., # 3 EA, 0 Refill(s), Pharmacy: [facility] #[id number], Type 2 diabetes mellitus, 177.8, cm, 08/22/24 14:59:00 EST, Height, 102.3, kg, 08/22/24 14:59:00 EST, Dosing Weight Start Date: 08/22/24 Status: Ordered Quantity: 3.0 Unit: EA Repeat number: 1 Indication: Type 2 diabetes mellitus without complications DEXCOM G7 SENSOR (3 sources) Start: 12-23-2024 DEXCOM G7 SENS OR DEXCOM G7 SENSOR, See Instructions, PLACE ONE SENSOR ON THE BACK OF THE UPPER ARM EVERY 10 DAYS. USE READER OR PHONE LISETTE FOR DAILY BLOOD SUGAR CHECKS, # 3 EA, 0 Refill(s), Pharmacy: [facility] #[id number], 177.8, cm, 08/22/24 14:59:00 EST, Height, 102.3, [...] CHECKS, # 3 EA, 0 Refill(s), [facility]acy: [facility] #[id number], 177.8, cm, 08/22/24 14:59:00 EST, Height, 102.3, kg, 08/22/24 14:59:00 EST, Dosing Weight Start Date: 12/23/24 Status: Ordered Quantity: 3.0 Unit: EA Repeat number: 1 docusate sodium 100 mg oral capsule (1 source) Start: 03-07-2022 Colace 100 mg oral capsule Dose : 100 mg = 1 cap(s), Oral, BID, PRN as needed for constipation, # 20 cap(s), 0 Refill(s), Pharmacy: [facility] #[id number], 177.8, cm, 03/05/22 10:05:00 EDT, Height Start Date: 03/07/22 Status: Ordered famotidine 20 mg oral tablet (2 sources) Histamine-2 Receptor Antagonist Start: 01-17-2022 Pepcid 20 mg oral tablet Dose : 20 mg = 1 tab(s), Oral, qDay, # 30 tab(s), 0 Refill(s) Start Date: 01/17/22 Status: Ordered ibuprofen 600 mg oral tablet (20 sources) Nonsteroidal Anti-inflammatory Drug Start: 05-14-2025 End: 05-21-2025 ibuprofen 600 mg oral tablet Dose : 600 mg = 1 tab(s), Oral, q6h, PRN for pain, Take with food or milk., X 7 day(s), # 30 tab(s), 0 Refill(s), 05/21/25 11:42:00 AM EDT, Pharmacy: [facility] #[id number], 177.8, cm, 05/14/25 11:40:00 EDT, Height, kg, 05/14/25 11:40:00 EDT, Dosing Weight Start Date: 05/14/25 Stop Date: 05/21/25 Status: Ordered Medication Dispense Status: Completed Quantity: 30.0 Unit: tab(s) Total Allowed Fills: 1 Fills Dispensed: 0 Start: 02-05-2025 End: 05-10-2025 take 1 tablet by mouth four times daily as needed for pain Ibuprofen 600 mg tablet Discontinued 600 mg PO 4 TIMES DAILY as needed for pain 40 0 February 05, 2025 2:53am May 10, 2025 2:03am Start: 07-12-2024 End: 02-05-2025 take 1 tablet by mouth every six hours as needed for pain Ibuprofen 600 mg tablet Discontinued 600 mg PO EVERY 6 HOURS NEEDED as needed for fever or pain 20 0 July 12, 2024 1:00am February 05, 2025 [...] 40 tab(s), 0 Refill(s), [facility]: [facility] #[id number], 177.8, cm, 03/05/22 10:05:00 EDT, Height Start [...] # 15 mL, 5 Refill(s), Pharmacy: [facility] #[id number], 177.8, cm, 03/05/22 10:05:00 EDT, Height Start Date: 03/07/22 Status: Ordered Iron (2 sources) Start: 05-06-2025 take 1 capsule by mouth once daily Pnv [id number]-Dha 90 mg iron- 1 mg-200 mg capsule Active 1 NMA PO DAILY 30 May 06, 2025 12:00am Complies with drug therapy Start: 05-06-2025 take 1 capsule by mouth once d aily naproxen sodium 550 mg oral tablet (9 [...] 1 tablet by mouth once daily. Active Prenavite FC oral tablet (1 source) Start: 05-11-2025 take 1 tablet by mouth once daily Prenavite FC oral tablet TAKE 1 TABLET BY MOUTH EVERY DAY Start Date: 05/11/25 Status: Ordered Medication Dispense Status: Completed Total Allowed Fills: 1 Fills Dispensed: 0 sodium chloride flush 0.9 % injection 3 mL (1 source) Start: 03-07-2021 sodium chloride flush 0.9 % injection 3 mL Completed/Discontinued Medications Medication Drug Class(es) Dates Sig (Normalized) Sig (Original) [id number] 200 actuat albuterol 0.09 mg/actuat metered dose inhaler (1 source) beta2-Adrenergic Agonist Start: 03-15-2021 End: 03-15-2021 albuterol sulfate HFA 108 (90 Base) MCG/ACT inhaler 2 puff amoxicillin 500 mg oral tablet (6 sources) Penicillin-class Antibacterial Start: 07-12-2024 End: 08-08-2024 [...] lidocaine 1 % 1 mL IM Injection clindamycin 300 mg oral capsule (6 sources) Lincosamide Antibacterial Start: 08-08-2024 End: 02-05-2025 [...] DULoxetine 60 mg delayed release oral capsule (18 sources) Serotonin and Norepinephrine Reuptake Inhibitor Start: [...] 325 mg delay ed release oral tablet (13 sources) Start: 08-29-2024 End: 12-27-2024 ferrous sulfate 325 mg (65 m g elemental iron) oral delayed release tablet Dose : 325 mg = 1 tab(s), Oral, BID, # 60 tab(s), 3 Refill(s), [facility]acy: [facility] #[id number], 177.8, cm, 08/22/24 14:59:00 EST, Height, kg, [...] daily. metFORMIN hydrochloride 500 mg oral tablet (14 sources) Biguanide Start: 12-11-2023 End: 05-10-2025 take 1 tablet by mouth once daily Metformin 500 mg tablet Discontinued 500 mg PO DAILY April 03, 2024 12:00am October 12th, 2025 2:03am metroNIDAZOLE 500 mg oral tablet (2 sources) [...] [Zofran Odt] 4 MG PO EVERY SIX [id number] PRN 20 May 12, 2023 May 17, 2023 Discontinued Moxhomnl-Db-Gox-Fe-FA ( VITAMIN) tab (2 sources) Start: 02-03-2019 take 1 tablet by mouth once daily Zakqlipq-Vh-Ldw-Fe -FA ( VITAMIN) tab Take 1 tablet by mouth once daily. 30 tablet 11 02/03/2019 Suspended Start: 02-03-2019 take 1 tablet by preston th once daily Mmflavgv-Wv-Qfn-Fe-FA ( VITAMIN) tab Take 1 tablet by [...] mg / trimethoprim 160 mg oral tablet (6 sources) Dihydrofolate Reductase Inhibitor Antibacterial, Sulfonamide Antimicrobial [...] Problem Date Documented Date Episodic/Chronic Anxiety disorders (7 sources) Anxiety; Translations: [Anxiety disorder, unspecified] Onset: 03-27-2025 06-01-2021 Chronic Attention-deficit, conduct, and disruptive behavior disorders (10 sources) Attention deficit hyperactivity disorder, predominantly inattentive type 12-20-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 Cardiac dysrhythmias (13 sources) Palpitations; Translations: [Palpitations] Onset: 05-12-2023 04-11-2024 Episodic Conditions associated with dizziness or vertigo (1 source) Dizziness and giddiness; Translations: [Dizziness and giddiness] Onset: 08-11-2023 Episodic Deficiency and other anemia (14 sources) Anemia; Translations: [Anemia, unspecified] 02-19-2024 Episodic Deficiency and other anemia (4 sources) Iron deficiency anemia 08-22-2024 Episodic Diabetes mellitus without complication (4 sources) Type 2 diabetes mellitus 08-22-2024 Chronic Diabetes mellitus without complication (5 sources) Prediabetes 02-19-2024 Episodic Diabetes or abnormal glucose tolerance complicating ; childbirth; or the puerperium (7 sources) Gestational diabetes mellitus, class A>1< 01-17-2022 Episodic Disorders of teeth and jaw (1 source) Carious exposure of pulp ; Translations: [Dental caries on pit and fissure surface penetrating into pulp] Onset: 08-07-2021 Episodic Essential hypertension (2 sources) Hypertensive disorder; Translations: [Essential (primary) hypertension] Onset: 09-26-2022 Chronic Fluid and electrolyte disorders (5 sources) Hypokalemia 02-19-2024 Episodic Hemorrhage during ; abruptio placenta; placenta previa (8 sources) Threatened miscarriage; Translations: [Threatened ] Onset: 05-16-2025 05-01-2024 Episodic Induced (1 source) Delayed or excessive hemorrhage following (induced) termination of ; Translations: [Delayed or excessive hemorrhage following (induced) termination of ] Onset: 10-14-2023 Episodic Malaise and fatigue (9 sources) Fatigue; Translations: [Other fatigue] Onset: 08-11-2023 06-10-2021 Episodic Mycoses (5 sources) Candidiasis of vagina 02-19-2024 Episodic Nausea and vomiting (3 sources) Nausea; Translations: [Nausea] Onset: 08-11-2023 Episodic Nonspecific chest pain (10 sources) Atypical chest pain; Translations: [Other chest pain] 05-06-2021 Episodic Other complications of (20 sources) Headache; Translations: [Other specified related conditions, second trimester] Onset: 01-29-2019 01-29-2019 Episodic Other complications of (1 source) Uncertain viability of ; Translations: [ with inconclusive viability, not applicable or unspecified] 04-28-2024 Episodic Other complications of (1 source) Spotting per vagina in ; Translations: [Spotting complicating , first trimester] 05-01-2024 Episodic Other complications of (3 sources) Missed miscarriage; Translations: [Missed ] Onset: 05-14-2025 Episodic Other complications of (1 source) Other specified related conditions, first trimester; Translations: [Other specified related conditions, first trimester] Onset: 05-09-2025 Episodic Other complications of (1 source) Missed ; Translations: [Missed ] Onset: 05-14-2025 Episodic Other connective tissue disease (4 sources) Pain in upper limb Episodic Other connective tissue disease (3 sources) Pain in lower limb Episodic Other connective tissue disease (6 sources) Localized swelling of right upper limb; Translations: [Other specified soft tissue disorders] 06-02-2021 Episodic Other connective tissue disease (4 sources) Ganglion cyst; Translations: [Ganglion, unspecified site] [...] disorders of vagina] Onset: 01-01-2024 Episodic Other female genital disorders (2 sources) Hydrometra; Translations: [Other specified noninflammatory disorders of uterus] 05-06-2025 Episodic Other injuries and conditions due to external causes (2 sources) Unspecified injury of face, initial encounter; Translations: [UNSPECIFIED INJURY FACE INITIAL ENC] Onset: 11-29-2021 Episodic Other injuries and conditions due to external causes (5 sources) Closed injury of head; Translations: [Unspecified injury of head, initial encounter] 02-05-2025 Episodic Other lower respiratory disease (6 sources) Dyspnea; Translations: [Dyspnea, unspecified] 05-16-2024 Episodic Other nervous system disorders (6 sources) Polyneuropathy; Translations: [Polyneuropathy, unspecified] 06-09-2021 Chronic Other nervous system disorders (12 sources) Paresthesia; Translations: [Paresthesia of skin] 01-12-2025 Episodic Other nervous system disorders (6 sources) Paresthesia of hand ; Translations: [Paresthesia of skin] 05-06-2021 Episodic Other nervous system disorders (1 source) Postoperative pain ; Translations: [Other acute postprocedural pain] Onset: 05-14-2025 Episodic Other nervous system disorders (1 source) Other acute postprocedural pain; Translations: [Other acute postprocedural pain] Onset: 05-14-2025 Episodic Other non-traumatic joint disorders (5 sources) Hip pain 02-19-2024 Episodic Other non-traumatic joint disorders (1 source) Wrist joint pain; Translations: [Pain in unspecified wrist] Onset: 02-18-2025 Episodic Other non-traumatic joint disorders (3 sources) Pain in wrist 02-18-2025 Episodic Other nutritional; endocrine; and metabolic disorders (5 sources) Obese class I; Translations: [Obesity, unspecified] Onset: 12-10-2023 12-10-2023 Chronic Other and delivery including normal (14 sources) ; Translations: [ with uncertain dates] Onset: 01-17-2022 01-01-2022 Episodic Comment on above: System added from do cumentation. Status documented as Yes on Admission Other screening for suspected conditions (not mental disorders or infectious disease) (6 sources) Increased human chorionic gonadotropin level; Translations: [Other specified abnormal findings of blood chemistry] 04-03-2024 Episodic Other skin disorders (6 sources) Axillary hidradenitis suppurativa; Translations: [Hidradenitis suppurativa] 06-02-2021 Episodic Residual codes; unclassified (1 source) Tobacco user; Translations: [Tobacco use] Onset: 08-07-2021 Episodic Residual codes; unclassified (6 sources) Insomnia; Translations: [Insomnia, unspecified] 06-24-2024 Episodic Skin and subcutaneous tissue infections (1 source) Acute lymphangitis of neck; Translations: [Acute lymphangitis of neck] Onset: 08-07-2021 Episodic Spondylosis; intervertebral disc disorders; other back problems (14 sources) Pain in thoracic spine; Translations: [Cervical radiculopathy] Onset: 02-13-2023 06-01-2021 Episodic Spontaneous (1 source) with abortive outcome; Translations: [Incomplete spontaneous without complication] 05-06-2024 Episodic Substance-related disorders (6 sources) Methamphetamine abuse; 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, uncomplicated] Onset: 12-10-2023 Chronic Superficial injury; contusion (5 sources) Contusion of scalp; Translations: [Contusion of scalp, initial encounter] 02-05-2025 Episodic Unclassified (5 sources) Induction of labor Onset: 05-28-2014 05-28-2014 Unclassified (4 sources) Pain of left breast 08-22-2024 Urinary tract infections (6 sources) Acute cystitis; Translations: [Acute cystitis with hematuria] Onset: 02-05-2024 Episodic Viral infection (4 sources) Viral disease; Translations: [Viral infection, unspecified] 03-23-2025 Episodic Past or Other Problems Problem Classification Problem Date Documented Date Episodic/Chronic Clancy (7 sources) Burn of unspecified degree of unspecified single finger (nail) except thumb, initial encounter; Translations: [Burn of finger] Onset: 08-15-2024 07-25-2024 Episodic Genitourinary symptoms and ill-defined conditions (7 sources) Bacteriuria; Translations: [Bacteriuria] Onset: 01-29-2019 01-29-2019 Episodic Inflammatory diseases of female pelvic organs (9 sources) Vaginitis; Translations: [Acute vaginitis] Onset: 01-29-2019 01-29-2019 Episodic Nonmalignant breast conditions (7 sources) Mastodynia; Translations: [Pain of left breast] [...] in right thigh] Onset: 02-13-2023 Episodic Other connective tissue disease (1 source) Ganglion, unspecified site; Translations: [Ganglion, unspecified site] Onset: 02-18-2025 Episodic Other female genital disorders (3 sources) Vaginal discharge; Translations: [Other specified noninflammatory disorders of vagina] Onset: 03-15-2021 Episodic Other infections; including parasitic (7 sources) History of sexually transmitted disease; Translations: [Personal history of other infectious and parasitic diseases] Onset: 01-29-2019 01-29-2019 Episodic Other injuries and conditions due to external causes (1 source) Unspecified injury of head, initial encounter; Translations: [Unspecified injury of head, initial encounter] Onset: 02-11-2025 Episodic Other lower respiratory disease (3 sources) Cough; Translations: [Cough] Onset: 03-15-2021 Resolved: 04-14-2021 Episodic Other lower respiratory disease (1 source) Shortness of breath; Translations: [Shortness of breath] [...] Onset: 01-16-2025 Episodic Other non-traumatic joint disorders (1 source) Pain in unspecified wrist; Translations: [Pain in unspecified wrist] Onset: 02-18-2025 Episodic Other nutritional; endocrine; and metabolic disorders (1 source) Polyphagia; Translations: [Polyphagia] Onset: 07-14-2024 Episodic Other upper respiratory infections (16 sources) Upper respiratory infection; Translations: [Acute upper respiratory infection, unspecified] Onset: 08-15-2024 04-11-2024 Episodic Residual codes; unclassified (7 sources) Gestation period, 14 weeks; Translations: [14 weeks gestation of ] Onset: 01-29-2019 01-29-2019 Episodic Results Test Name Value Interpretation Reference Range Facility Final Surgical Pathology Rep [facility] 05-18-2025 Final Surgical Pathology Report . Pathology Reports Accession: Collected Date/Time: Received Date/Time: Pathologist: [id number] 05/14/2025 11:59 EDT 05/15/2025 07:15 EDT TAO TOBIAS MD Final Surgical Pathology Report DIAGNOSIS: PRODUCTS OF CONCEPTION: - FRAGMENTS OF HYPERSECRETORY ENDOMETRIUM, DECIDUALIZED TISSUE, CHORIONIC VILLI, AND BLOOD CLOT (PRODUCTS OF CONCEPTION) IDENTIFIED CLINICAL INFORMATION: Procedure: SUCTION DILATION AND CURETTAGE Preoperative diagnosis: MISSED Postoperative diagnosis: MISSED SPECIMEN: A PRODUCTS OF CONCEPTION GROSS DESCRIPTION: All parts labelled with patient name and [id number] Received in formalin labelled products of conception Specimen is received in a tissue collection bag and consists of multiple benavidez-brown hemorrhagic tissue fragments aggregating to 6 x 5.5 x 2 cm. No vesicles or parts are identified. RS-3 Ben Hines, Pathologists' Automotive Upholsterer (ASCP) Performed by [facility] MICROSCOPIC DESCRIPTION: The microscopic examination is performed, except in the case of Gross Only. Verified by Pathology Report verified by [facility] TAO TOBIAS Sign out Date: 05/18/2025 14:37 Performing Lab: [facility], [address] [place] [address] Pathology Dept Disclaimer If ancillary studies were utilized, the following Laboratory Developed Test (LDT) disclaimer will apply: Under CLIA requirements, [facility] is qualified to perform high complexity testing. For all ancillary, histochemical, in situ hybridization and immunostains, the controls are reviewed by the case pathologist, prior to and/or concurrent with the patients results to ensure appropriate staining the meets the performance specifications considered acceptable for patient testing. Performance characteristics of immunohistochemical and chromogenic in situ hybridization tests have been determined by [facility]. These tests are used for clinical purposes, they should not be regarded as investigational or for research. Normal [facility] .Auto Diffon 05-14-2025 Basophil, Absolute 0.0 10 3/mcL Normal 0.0-0.3 [facility] Comment on above: Performed By: #### C BC, ANEU, ABOGEL, ABSGEL, ADIFF #### [id number] [place], [place] [address] Basophils/100 WBC (Bld) 0.6 % Normal 0.0-2.5 [facility] Comment on above: Performed By: #### C BC, ANEU, ABOGEL, ABSGEL, ADIFF #### [facility] [address] [place], [place] [address] Eosinophil, Absolute 0.2 10 3/mcL Normal 0.0-0.7 [facility] [place] Comment on above: Performed By: #### C BC, ANEU, ABOGEL, ABSGEL, ADIFF #### [address] [address] Eosinophils/100 WBC (Bld) 2.8 % Normal 0.0-6.0 [facility] Comment on above: Performed By: #### C BC, ANEU, ABOGEL, ABSGEL, ADIFF #### [address] [address] Lymphocyte, Absolute 2.4 10 3/mcL Normal 0.9-4.3 [facility] [place] Comment on above: Performed By: #### C BC, ANEU, ABOGEL, ABSGEL, ADIFF #### [address] [address] Lymphocytes/100 WBC (Bld) 31.6 % Normal 20.0-40.0 [facility] Comment on above: Performed By: #### C BC, ANEU, ABOGEL, ABSGEL, ADIFF #### [address] [address] Monocyte, Absolute 0.5 10 3/mcL Normal 0.1-1.4 [facility] Comment on above: Performed By: #### C BC, ANEU, ABOGEL, ABSGEL, ADIFF #### [address] [address] Monocytes/100 WBC (Bld) 6.2 % Normal 2.0-13.0 [facility] Comment on above: Performed By: #### C BC, ANEU, ABOGEL, ABSGEL, ADIFF #### [address] [address] Neutrophils/100 WBC (Bld) 58.8 % Normal 50.0-75.0 [facility] Comment on above: Performed By: #### C BC, ANEU, ABOGEL, ABSGEL, ADIFF #### [address] [address] .NEUABSon 05-14-2025 Neutrophil, Absolute 4.4 10 3/mcL Normal 2.3-8.1 [facility] [place] Comment on above: Performed By: #### C BC, ANEU, ABOGEL, ABSGEL, ADIFF #### [address] [address] ABO/Rh (Gel)on 05-14-2025 ABO/Rh Interp Positive Invalid Interpretation Code [facility] Comment on above: Performed By: #### C BC, ANEU, ABOGEL, ABSGEL, ADIFF #### [address] [address] ABS (Gel)on 05-14-2025 ABSC Interp (Gel) Negative Normal [facility] Comment on above: Performed By: #### C BC, ANEU, ABOGEL, ABSGEL, ADIFF #### [address] [address] CBCon 05-14-2025 Erythrocyte distribution width (RBC) [Ratio] 16.0 % High 11.5-15.5 [facility] Comment on above: Performed By: #### C BC, ANEU, ABOGEL, ABSGEL, ADIFF #### [place] [address] Hematocrit (Bld) [Volume fraction] 32.9 % Low 34.0-46.0 [facility] Comment on above: Performed By: #### C BC, ANEU, ABOGEL, ABSGEL, ADIFF #### [address] [address] Hgb 11.2 G/dL Low 12.0-16.0 [facility] Comment on above: Performed By: #### C BC, ANEU, ABOGEL, ABSGEL, ADIFF #### [address] [address] MCH (RBC) [Entitic mass] 29.6 pg Normal 27.0-33.0 [facility] Comment on above: Performed By: #### C BC, ANEU, ABOGEL, ABSGEL, ADIFF #### [address] [address] MCHC 33.9 G/dL Normal 32.0-36.0 [facility] Comment on above: Performed By: #### C BC, ANEU, ABOGEL, ABSGEL, ADIFF #### [address] [address] MCV (RBC) [Entitic vol] 87.2 fL Normal 80.0-99.0 [facility] Comment on above: Performed By: #### C BC, ANEU, ABOGEL, ABSGEL, ADIFF #### [place] [address] Platelet 153 10 3/mcL Normal 150-450 [facility] Comment on above: Performed By: #### C BC, ANEU, ABOGEL, ABSGEL, ADIFF #### [place] [address] Platelet mean volume (Bld) [Entitic vol] 8.9 fL Normal 6.6-10.5 [facility] Comment on above: Performed By: #### C BC, ANEU, ABOGEL, ABSGEL, ADIFF #### [place] [id number] RBC 3.77 10 6/mcL Low 4.10-5.30 [facility] Comment on above: Performed By: #### C BC, ANEU, ABOGEL, ABSGEL, ADIFF #### [place] [id number] WBC 7.5 10 3/mcL Normal 4.5-10.8 [facility] Comment on above: Performed By: #### C BC, ANEU, ABOGEL, ABSGEL, ADIFF #### [place] [address] LABORATORYOrdered By: Whitney Chand on 05-14-2025 ABO and Rh group Nom (Bld) Blood group O Rh(D) positive Invalid Interpretation Code AO BB Auto SS Blood group antibody screen Ql Negative ABSC (05/14/25 11:24 AM) Normal AO BB Auto SS LABORATORYOrdered By: [employer] on 10-16-2025 Basophils (Bld) [#/Vol] 0.0 103/mcL Normal 0.0 - 0.3 10^3/mcL AO Workflow SS Basophils/100 WBC (Bld) 0.6 % Normal 0.0 - 2.5 % AO Workflow SS Eosinophil, Absolute 0.2 103/mcL Normal 0.0 - 0 .7 10^3/mcL AO Workflow SS Eosinophils/100 WBC (Bld) 2.8 % Normal 0.0 - 6.0 % AO Workflow SS Erythrocyte distribution width (RBC) [Ratio] 16.0 % High 11.5 - 15.5 % AO Workflow SS Hematocrit (Bld) [Volume fraction] 32.9 % Low 34.0 - 46.0 % AO Workflow SS Hemoglobin (Bld) [Mass/Vol] 11.2 G/dL Low 12.0 - 16.0 G/dL AO Workflow SS Lymphocytes (Bld) [#/Vol] 2.4 103/mcL Normal 0.9 - 4.3 10^3/mcL AO Workflow SS Lymphocytes/100 WBC (Bld) 31.6 % Normal 20.0 - 40.0 % AO Workflow SS MCH (RBC) [Entitic mass] 29.6 pg Normal 27.0 - 33.0 pg AO Workflow SS MCHC 33.9 G/dL Normal 32.0 - 36.0 G/dL AO Workflow SS MCV (RBC) [Entitic vol] 87.2 fL Normal 80.0 - 99.0 fL AO Workflow SS Monocytes (Bld) [#/Vol] 0.5 103/mcL Normal 0.1 - 1.4 10^3/mcL AO Workflow SS Monocytes/100 WBC (Bld) 6.2 % Normal 2.0 - 13.0 % AO Workflow SS Neutrophils (Bld) [#/Vol] 4.4 103/mcL Normal 2.3 - 8.1 10^3/mcL AO Workflow SS Neutrophils/100 WBC (Bld) 58.8 % Normal 50.0 - 75.0 % AO Workflow SS Platelet mean volume (Bld) [Entitic vol] 8.9 fL Normal 6.6 - 10.5 fL AO Workflow SS Platelets (Bld) [#/Vol] 153 103/mcL Normal 150 - 450 10^3/mcL AO Workflow SS RBC (Bld) [#/Vol] 3.77 106/mcL Low 4.10 - 5.3 0 10^6/mcL AO Workflow SS WBC (Bld) [#/Vol] 7.5 103/mcL Normal 4.5 - 10.8 10^3/mcL AO Workflow SS HCGQon 05-13-2025 hCG, quantitative 1796.1 mIU/mL Normal [facility] Comment on above: Result Comment: HCG Levels with Gestation age: 0.2- 1 week. . . . . . . . . . . . . . . 5 - 50 mIU/mL 1-2 weeks . . . . . . . . . . . . . . . 50 - 500 mIU/mL 2-3 weeks . . . . . . . . . . . . . . . 100 - 5,000 mIU/ml 3-4 weeks . . . . . . . . . . . . . . . 500 - 10,000 mIU/mL 4-5 weeks . . . . . . . . . . . . . . . 1,000 - 5,000 mIU/mL 5-6 weeks . . . . . . . . . . . . . . . 10,000 - 100,000 mIU/mL 6-8 weeks . . . . . . . . . . . . . . . 15,000 - 200,000 mIU/mL 2-3 months . . . . . . . . . . . . . . . 10,000 - 100,000 mIU/mL Performed By: #### H CGQ #### [address] [address] HCGQon 05-11-2025 hCG, quantitative 6989.5 mIU/mL Normal [facility] Comment on above: Result Comment: HCG Levels with Gestation age: 0.2- 1 week. . . . . . . . . . . . . . . 5 - 50 mIU/mL 1-2 weeks . . . . . . . . . . . . . . . 50 - 500 mIU/mL 2-3 weeks . . . . . . . . . . . . . . . 100 - 5,000 mIU/ml 3-4 weeks . . . . . . . . . . . . . . . 500 - 10,000 mIU/mL 4-5 weeks . . . . . . . . . . . . . . . 1,000 - 5,000 mIU/mL 5-6 weeks . . . . . . . . . . . . . . . 10,000 - 100,000 mIU/mL 6-8 weeks . . . . . . . . . . . . . . . 15,000 - 200,000 mIU/mL 2-3 months . . . . . . . . . . . . . . . 10,000 - 100,000 mIU/mL Performed By: #### H CGQ #### [address] [place], [place] [address] Absolute lymphocyte countOrd ered By: Nelson Ulloa on 05-10-2025 Lymphocytes Auto (Unsp spec) [#/Vol] 2.75 10*3/uL 0.83-4.51 [facility] Absolute neutrophil countOrd ered By: Nelson Ulloa on 05-10-2025 Neutrophils (Bld) [#/Vol] 4.0 10*3/uL 2.0-7.7 [facility] Automated lymphocyte count a s percentage of total leukocytesOrdered By: Nelson Ulloa on 05-10-2025 Lymphocytes/100 WBC Auto (Unsp spec) 37.3 % 19-41 [facility] Basophil percentageOrdered B y: Nelson Ulloa on 05-10-2025 Basophils/100 WBC (Bld) 0.3 % 0-1 [facility] CBC W/Diff, Automatedon 04-29 Absolute Lymph 2.75 X10 3/uL Normal 0.83-4.51 [facility] Comment on above: Performed By: #### L 100.0100, L700.8000 #### [facility] [address] [facility] [place], [address] Absolute Neut 4.0 X10 3/uL Normal 2.0-7.7 [facility] Comment on above: Performed By: #### L 100.0100, L700.8000 #### [facility] [address] [place], [address] Basophils/100 WBC (Bld) 0.3 % Normal 0-1 [facility] Comment on above: Performed By: #### L 100.0100, L700.8000 #### [facility] [address] [place], [address] Eosinophils/100 WBC (Bld) 2.0 % Normal 0-5 [facility] Comment on above: Performed By: #### L 100.0100, L700.8000 #### [facility] [address] [place], [address] Erythrocyte distribution width (RBC) [Ratio] 15.0 % High 11.6-14.6 [facility] Comment on above: Performed By: #### L 100.0100, L700.8000 #### [facility] [address] [place], [address] Hematocrit (Bld) [Volume fraction] 33.7 % Low 37-47 [facility] Comment on above: Performed By: #### L 100.0100, L700.8000 #### [facility] [address] [place], [address] Hemoglobin (Bld) [Mass/Vol] 11.4 g/dL Low 12.0-15.0 [facility] Comment on above: Performed By: #### L 100.0100, L700.8000 #### [facility] [address] [place], [address] IG% 0.300 Normal 0.0-0.9 [facility] Comment on above: Result Comment: IG% - Immature Granulocytes (promyelocytes, myelocytes and metamyelocytes) > 1% indicates that a LEFT SHIFT is Present. Performed By: #### L 100.0100, L700.8000 #### [facility] [address] [place], [address] Lymphocytes/100 WBC (Bld) 37.3 % Normal 19-41 [facility] Comment on above: Performed By: #### L 100.0100, L700.8000 #### [facility] [address] [place], [address] MCH (RBC) [Entitic mass] 29.2 pg Normal 27.0-32.0 [facility] Comment on above: Performed By: #### L 100.0100, L700.8000 #### [facility] [address] [place], [address] MCHC (RBC) [Mass/Vol] 33.8 g/dL Normal 32-36 [facility] Comment on above: Performed By: #### L 100.0100, L700.8000 #### [facility] [address] [place], [address] MCV (RBC) [Entitic vol] 86.4 fL Normal 81-99 [facility] Comment on above: Performed By: #### L 100.0100, L700.8000 #### [facility] [address] [place], [address] Monocytes/100 WBC (Bld) 5.7 % Normal 0-10 [facility] Comment on above: Performed By: #### L 100.0100, L700.8000 #### [facility] [address] [place], [address] Neutrophils/100 WBC (Bld) 54.4 % Normal 47-70 [facility] Comment on above: Performed By: #### L 100.0100, L700.8000 #### [facility] [address] [place], [address] Nucleated RBC (Bld) [#/Vol] 0 10*3/uL Normal 0-5 [facility] Comment on above: Performed By: #### L 100.0100, L700.8000 #### [facility] [address] [place], [address] Platelet mean volume (Bld) [Entitic vol] 10.8 fL Normal 6.2-12.0 [facility] Comment on above: Performed By: #### L 100.0100, L700.8000 #### [facility] [address] [place], [address] Platelets (Bld) [#/Vol] 171 10*3/uL Normal 150-450 [facility] Comment on above: Performed By: #### L 100.0100, L700.8000 #### [facility] [address] [place], [address] RBC (Bld) [#/Vol] 3.90 10*6/uL Low 4.2-5.4 [facility] Comment on above: Performed By: #### L 100.0100, L700.8000 #### [facility] [address] [place], [address] RDW SD 47.8 fl High 35.1-43.9 [facility] Comment on above: Performed By: #### L 100.0100, L700.8000 #### [facility] [address] [place], [address] WBC (Bld) [#/Vol] 7.4 10*3/uL Normal 4.4-11.0 [facility] Comment on above: Performed By: #### L 100.0100, L700.8000 #### [facility] [address] [place], [address] Emergency Department Summary on 05-10-2025 Emergency Department Summary [facility] Medical Records Department [address] [place] [address] Emergency Department Summary 05/10/25 MR#: [id number] Acct: [id number] Name: BETSY MESA Rep #: [id number] : 1995 30 From: Nelson Ulloa DO PCP: ARLINE CORADO Status:DEP ER Location: ED HPI HPI - Female History of Present Illness Chief Complaint: Vag Bld, Preg Informant: patient Narrative Narrative: Patient is a 30-year-old female who is a G7, P5 at approximately 6 weeks . She was seen on May 03 and May 06 secondary to lower abdominal cramping and vaginal bleeding. She had an ultrasound done on the and with documented a IUP but also noticed an abnormal fluid collection adjacent to the gestational sac. The patient states that this evening she once again noticed some abdominal lower cramping and then went to the bathroom and had blood from the vagina. She states that she does not have a history of bleeding disorder nor does she take blood thinners. 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 in roughly 24 hours but because of the return bleeding she was concerned and presents for evaluation [facility] Medical History Migraine Anxiety Paresthesias Cervical radiculopathy Cervicalgia Home Medications ???Medication ???Instructions ???Recorded ???Last Taken ???Type cephalexin 500 mg capsule 500 mg PO TID 5 days #15 caps 12/21 Unknown Rx vitamins no.102-iron 90 1 cap PO DAILY #30 caps 05/06/25 U nknown Rx mg-folate 1 mg-dha 200 mg capsule Allergy/AdvReac Type Severity Reaction Status Date / Time acetaminophen (From Vicodin) Allergy Hives Verified 05/10/25 02:02 hydrocodone (From Vicodin) Allergy Hives Verified 05/10/25 02:02 Family History Other Cancer Diabetes Seizures Social [...] ENT ED: Denies sore throat Cardiovascular Cardiovascular: Denies chest pain Respiratory/Chest Respiratory/Chest: Denies cough or dyspnea Gastrointestinal Gastrointestinal: Reports abdominal pain; Denies diarrhea, nausea or vomiting Genitourinary Genitourinary ED: Reports other Details: Positive vaginal bleeding Musculoskeletal Musculoskeletal: Denies myalgias Integumentary Denies rash Neurologic Neurologic: Denies headache(s) Hematologic/Lymphatic Hematologic/Lymphatic: Denies easy bleeding or easy bruising EXAM Physical Exam Const Vital Signs: 05/10/25 01:59 05/10/25 02:43 05/10/25 03:54 Temperature 98.5 F 97.1 F L Temperature Source Oral Pulse Rate 108 H 77 Respiratory Rate 18 16 Respiratory Effort Normal Non-Labored Respiratory Pattern Normal Blood Pressure 130/84 H 140/91 H Blood Pressure Mean 99 107 Pulse Ox 98 99 Oxygen Delivery Method Room Air Positive well nourished and well developed General Appearance ED: well developed; Negative for pallor HEENT HEENT Narrative: Normocephalic atraumatic Eyes PERRL and EOMs intact bilaterally General Eye ED: Negative for pale conjunctiva or scleral icterus Neck supple Resp normal respiratory effort and clear to auscultation bilaterally Cardio regular rate and regular rhythm GI normal to inspection, nondistended, normoactive bowel sounds, soft to palpation, non-tender, non- distended and no masses GI Narrative: No voluntary guarding or rigidity or pulsatile mass. No peritoneal signs. No organomegaly Auscultation: normoactive bowel sounds Palpation: soft Extremity normal to inspection and full ROM Neuro oriented x3, CN's II-XII intact bilaterally and no sensory deficits noted Sensorium / Orientation: alert Motor Exam: strength 5/5 throughout Psych mental status grossly normal Skin no rashes or lesions noted and no wounds General Skin Exam: Negative for jaundice or pallor MDM MDM MDM Narrative Medical decision making narrative: Patient presented complaining of abdominal cramping with passage of bright red blood per vagina. However she stated it was 1 episode and has not reoccurred or continued. Her previous chart was reviewed and the ultrasound report from May 03 and was reviewed indicating an IUP. As she is only 6 weeks along and there is a known IUP I do not feel the need to repeat another emergent ultrasound. (more content not included)... Normal [facility] Eosinophil percentageOrdered By: Nelson Ulloa on 05-10-2025 Eosinophils/100 WBC (Bld) 2.0 % 0-5 [facility] Erythrocyte distribution wid th ratioOrdered By: Nelson Ulloa on 05-10-2025 Erythrocyte distribution width (RBC) [Ratio] 15.0 % High 11.6-14.6 [facility] Erythrocyte distribution wid th standard deviationOrdered By: Nelson Ulloa on 05-10-2025 Erythrocyte distribution width (RBC) [Ratio] 47.8 fl High 35.1-43.9 [facility] Hematocrit Auto (Bld) [Volum e fraction]Ordered By: Nelson Ulloa on 05-10-2025 Hematocrit (Bld) [Volume fraction] 33.7 % Low 37-47 [facility] Hemoglobin measurementOrdere d By: Nelson Ulloa on 05-10-2025 Hemoglobin (Bld) [Mass/Vol] 11.4 g/dL Low 12.0-15.0 [facility] Immature granulocytes/100 WB C Auto (Bld)Ordered By: Nelson Ulloa on 05-10-2025 Immature granulocytes/100 WBC (Bld) 0.300 % 0.0-0.9 [facility] Comment on above: IG% - Immature Granu locytes (promyelocytes, myelocytes and metamyelocytes) > 1% indicates that a LEFT SHIFT is Present. MCV (mean corpuscular volume ) determinationOrdered By: Nelson Ulloa on 05-10-2025 MCV (RBC) [Entitic vol] 86.4 fL 81-99 [facility] Mean corpuscular hemoglobin (MCH) determinationOrdered By: Nelson Ulloa on 05-10-2025 MCH (RBC) [Entitic mass] 29.2 pg 27.0-32.0 [facility] Mean corpuscular hemoglobin concentration (MCHC) determinationOrdered By: Nelson Ulloa on 05-10-2025 MCHC (RBC) [Mass/Vol] 33.8 g/dL 32-36 [facility] Mean platelet volume determi nationOrdered By: Nelson Ulloa on 05-10-2025 Platelet mean volume (Bld) [Entitic vol] 10.8 fL 6.2-12.0 [facility] Monocyte percentageOrdered B y: Nelson Ulloa on 05-10-2025 Monocytes/100 WBC (Bld) 5.7 % 0-10 [facility] Neutrophil percentageOrdered By: Nelson Ulloa on 05-10-2025 Neutrophils/100 WBC (Bld) 54.4 % 47-70 [facility] Nucleated red blood cell per centageOrdered By: Nelson Ulloa on 05-10-2025 Nucleated RBC/100 WBC (Bld) [Ratio] 0 % 0-5 [facility] Platelet countOrdered By: Maranda Ulloa on 05-10-2025 Platelets (Bld) [#/Vol] 171 10*3/uL 150-450 [facility] RBC Auto (Bld) [#/Vol]Ordere d By: Nelson Ulloa on 05-10-2025 RBC (Bld) [#/Vol] 3.90 10*6/uL Low 4.2-5.4 [facility] Serum human chorionic gonado tropin detection for pregnancyOrdered By: Nelson Ulloa on 05-10-2025 HCG ( test) [place]l [address] mIU/mL High <9 [facility] Comment on above: Gestational Age0.2-1 Week: 5-50 mIU/mL1-2 Weeks: 50-500 mIU/mL2-3 Weeks: 100-5000 mIU/mL3-4 Weeks: 500-10,000 mIU/mL4-5 Weeks:1000-50,000 mIU/mL5-6 Weeks: 10,000-100,000 mIU/mL6-8 Weeks: 15,000-200,000 mIU/mL2-3 Months:10,000-100,000 mIU/mL White blood cell (WBC) count Ordered By: Nelson Ulloa on 05-10-2025 WBC (Bld) [#/Vol] 7.4 10*3/uL 4.4-11.0 [facility] hCG Titer Quant., Serumon HCG QUANT. 31377 mIU/mL High <9 non-preg [facility] Comment on above: Result Comment: Gest ational Age 0.2-1 Week: 5-50 mIU/mL 1-2 Weeks: 50-500 mIU/mL 2-3 Weeks: 100-5000 mIU/mL 3-4 Weeks: 500-10,000 mIU/mL 4-5 Weeks:1000-50,000 mIU/mL 5-6 Weeks: 10,000-100,000 mIU/mL 6-8 Weeks: 15,000-200,000 mIU/mL 2-3 Months:10,000-100,000 mIU/mL Performed By: #### L 100.0100, L700.8000 #### [facility] [address] [place], [place], [id number] Absolute lymphocyte countOrd ered By: René Mohan on 05-06-2025 Lymphocytes Auto (Unsp spec) [#/Vol] 2.43 10*3/uL 0.83-4.51 [facility] Absolute neutrophil countOrd ered By: René Mohan on 05-06-2025 Neutrophils (Bld) [#/Vol] 4.5 10*3/uL 2.0-7.7 [facility] Anion gap in Serum or Plasma Ordered By: René Mohan on 05-06-2025 Anion gap [Moles/Vol] 9 mmol/L 5-15 [facility] Automated lymphocyte count a s percentage of total leukocytesOrdered By: René Mohan on 05-06-2025 Lymphocytes/100 WBC Auto (Unsp spec) 31.8 % 19-41 [facility] [id number] 05-06-2025 ABO and Rh group Nom (Bld) Blood group O Rh(D) positive Normal [facility] Comment on above: Performed By: #### B 882-1, L700.8000, L500.4050, L100.0100 ####[facility] [address] [place], [place], [id number] BUN/creatinine ratioOrdered By: René Mohan on 05-06-2025 Urea nitrogen/Creatinine [Mass ratio] 13.3 mg/mg 10-20 [facility] Basophil percentageOrdered B y: René Mohan on 05-06-2025 Basophils/100 WBC (Bld) 0.3 % 0-1 [facility] Bilirubin Test strip Ql (U)O rdered By: René Mohan on 05-06-2025 Bilirubin Ql (U) Negative Negative [facility] Bilirubin, totalOrdered By: René Mohan on 05-06-2025 Bilirubin [Mass/Vol] 0.19 mg/dL 0.00-1.30 [facility] CBC W/Diff, Automatedon Absolute Lymph 2.43 X10 3/uL Normal 0.83-4.51 [facility] Comment on above: Performed By: #### Ruth Ann 882-1, L700.8000, L500.4050, L100.0100 ####[facility] [address] [place], [address] Absolute Neut 4.5 X10 3/uL Normal 2.0-7.7 [facility] Comment on above: Performed By: #### Ruth Ann 882-1, L700.8000, L500.4050, L100.0100 ####[facility] [address] [place], [address] Basophils/100 WBC (Bld) 0.3 % Normal 0-1 [facility] Comment on above: Performed By: #### Ruth Ann 882-1, L700.8000, L500.4050, L100.0100 ####[facility] [address] [place], [address] Eosinophils/100 WBC (Bld) 2.2 % Normal 0-5 [facility] Comment on above: Performed By: ###Dwight Vallecillo 882-1, L700.8000, L500.4050, L100.0100 ####[facility] [address] [place], [address] Erythrocyte distribution width (RBC) [Ratio] 15.2 % High 11.6-14.6 [facility] Comment on above: Performed By: #### Ruth Ann 882-1, L700.8000, L500.4050, L100.0100 ####[facility] [address] [place], [address] Hematocrit (Bld) [Volume fraction] 34.9 % Low 37-47 [facility] Comment on above: Performed By: #### Ruth Ann 882-1, L700.8000, L500.4050, L100.0100 ####[facility] [address] [place], [address] Hemoglobin (Bld) [Mass/Vol] 11.7 g/dL Low 12.0-15.0 [facility] Comment on above: Performed By: #### Ruth Ann 882-1, L700.8000, L500.4050, L100.0100 ####[facility] [address] [place], [address] IG% 0.300 Normal 0.0-0.9 [facility] Comment on above: Result Comment: IG% - Immature Granulocytes (promyelocytes, myelocytes and metamyelocytes) > 1% indicates that a LEFT SHIFT is Present. Performed By: #### Ruth Ann 882-1, L700.8000, L500.4050, L100.0100 ####[facility] [address] [place], [address] Lymphocytes/100 WBC (Bld) 31.8 % Normal 19-41 [facility] Comment on above: Performed By: #### Ruth Ann 882-1, L700.8000, L500.4050, L100.0100 ####[facility] [address] [place], [address] MCH (RBC) [Entitic mass] 29.0 pg Normal 27.0-32.0 [facility] Comment on above: Performed By: #### Ruth Ann 882-1, L700.8000, L500.4050, L100.0100 ####[facility] [address] [place], [address] MCHC (RBC) [Mass/Vol] 33.5 g/dL Normal 32-36 [facility] Comment on above: Performed By: #### Ruth Ann 882-1, L700.8000, L500.4050, L100.0100 ####[facility] [address] [place], [address] MCV (RBC) [Entitic vol] 86.4 fL Normal 81-99 [facility] Comment on above: Performed By: #### Ruth Ann 882-1, L700.8000, L500.4050, L100.0100 ####[facility] [address] [place], [address] Monocytes/100 WBC (Bld) 6.9 % Normal 0-10 [facility] Comment on above: Performed By: #### Ruth Ann 882-1, L700.8000, L500.4050, L100.0100 ####[facility] [address] [place], [address] Neutrophils/100 WBC (Bld) 58.5 % Normal 47-70 [facility] Comment on above: Performed By: ###Dwight Vallecillo 882-1, L700.8000, L500.4050, L100.0100 ####[facility] [address] [place], [address] Nucleated RBC (Bld) [#/Vol] 0 10*3/uL Normal 0-5 [facility] Comment on above: Performed By: ###Dwight Vallecillo 882-1, L700.8000, L500.4050, L100.0100 ####[facility] [address] [place], [address] Platelet mean volume (Bld) [Entitic vol] 11.2 fL Normal 6.2-12.0 [facility] Comment on above: Performed By: ###Dwight Vallecillo 882-1, L700.8000, L500.4050, L100.0100 ####[facility] [address] [place], [address] Platelets (Bld) [#/Vol] 180 10*3/uL Normal 150-450 [facility] Comment on above: Performed By: #### Ruth Ann 882-1, L700.8000, L500.4050, L100.0100 ####[facility] [address] [place], [address] RBC (Bld) [#/Vol] 4.04 10*6/uL Low 4.2-5.4 [facility] Comment on above: Performed By: ###Dwight Vallecillo 882-1, L700.8000, L500.4050, L100.0100 ####[facility] [address] [place], [address] RDW SD 48.6 fl High 35.1-43.9 [facility] Comment on above: Performed By: ###Dwight Vallecillo 882-1, L700.8000, L500.4050, L100.0100 ####[facility] [address] [place], [address] WBC (Bld) [#/Vol] 7.6 10*3/uL Normal 4.4-11.0 [facility] Comment on above: Performed By: ##Jag Vallecillo 882-1, L700.8000, L500.4050, L100.0100 ####[facility] [address] [place], [address] Carbon dioxide, total [Moles /volume] in Central venous bloodOrdered By: René Mohan on 05-06-2025 CO2 [Moles/Vol] 23.3 mmol/L 21.0-32.0 [facility] Chloride assayOrdered By: Chivo Mohan on 05-06-2025 Chloride [Moles/Vol] 103 mmol/L 98-108 [facility] Comprehensive Metabolic Prof ilon 05-06-2025 Albumin [Mass/Vol] 4.1 g/dL Normal 3.5-5.0 [facility] Comment on above: Performed By: ###Dwight Vallecillo 882-1, L700.8000, L500.4050, L100.0100 ####[facility] [address] [place], [address] Albumin/Globulin [Mass ratio] 1.5 {ratio} Normal 0.9-2.4 [facility] Comment on above: Performed By: #### Ruth Ann 882-1, L700.8000, L500.4050, L100.0100 ####[facility] [address] [place], [address] ALK PHOS 57 U/L Normal 35-104 [facility] Comment on above: Performed By: #### Ruth Ann 882-1, L700.8000, L500.4050, L100.0100 ####[facility] [address] [place], [address] ALT [Catalytic activity/Vol] 13 U/L Normal <=34 [facility] Comment on above: Performed By: #### Ruth Ann 882-1, L700.8000, L500.4050, L100.0100 ####[facility] [address] [place], [address] AST [Catalytic activity/Vol] 15 U/L Normal <=31 [facility] Comment on above: Performed By: #### Ruth Ann 882-1, L700.8000, L500.4050, L100.0100 ####[facility] [address] [place], [address] Bilirubin [Mass/Vol] 0.19 mg/dL Normal 0.00-1.30 [facility] Comment on above: Performed By: #### Ruth Ann 882-1, L700.8000, L500.4050, L100.0100 ####[facility] [address] [place], [address] BUN/CRE 13.3 RATIO Normal 10-20 [facility] Comment on above: Performed By: ###Dwight Vallecillo 882-1, L700.8000, L500.4050, L100.0100 ####[facility] [address] [place], [address] Calcium [Mass/Vol] 9.3 mg/dL Normal 7.6-11.0 [facility] Comment on above: Performed By: #### Ruth Ann 882-1, L700.8000, L500.4050, L100.0100 ####[facility] [address] [place], [address] Chloride [Moles/Vol] 103 mmol/L Normal 98-108 [facility] Comment on above: Performed By: #### Ruth Ann 882-1, L700.8000, L500.4050, L100.0100 ####[facility] [address] [place], [address] CO2 [Moles/Vol] 23.3 mmol/L Normal 21.0-32.0 [facility] Comment on above: Performed By: #### Ruth Ann 882-1, L700.8000, L500.4050, L100.0100 ####[facility] [address] [place], [address] Creatinine [Mass/Vol] 0.66 mg/dL Low 0.70-1.20 [facility] Comment on above: Performed By: #### Ruth Ann 882-1, L700.8000, L500.4050, L100.0100 ####[facility] [address] [place], [address] ECRCL 165.01 ml/min Normal 50-250 [facility] Comment on above: Performed By: #### Ruth Ann 882-1, L700.8000, L500.4050, L100.0100 ####[facility] [address] [place], [address] GAP 9 Normal 5-15 [facility] Comment on above: Performed By: #### B 882-1, L700.8000, L500.4050, L100.0100 ####[facility] [address] [place], [address] GFR/1.73 sq M.predicted among non-blacks MDRD (S/P/Bld) [Vol rate/Area] 121 mL/min/{1.73_m2} Normal >60 [facility] Comment on above: Result Comment: mL/m in/1.73m2 CKD-EPI Creatinine Equation (2020) Performed By: #### Ruth Ann 882-1, L700.8000, L500.4050, L100.0100 ####[facility] [address] [place], [address] Globulin (S) [Mass/Vol] 2.8 g/dL Normal 2.2-4.2 [facility] Comment on above: Performed By: #### Ruth Ann 882-1, L700.8000, L500.4050, L100.0100 ####[facility] [address] [place], [address] Glucose [Mass/Vol] 115 mg/dL High 70-99 [facility] Comment on above: Performed By: #### Ruth Ann 882-1, L700.8000, L500.4050, L100.0100 ####[facility] [address] [place], [address] Potassium [Moles/Vol] 4.1 mmol/L Normal 3.3-5.1 [facility] Comment on above: Performed By: #### Ruth Ann 882-1, L700.8000, L500.4050, L100.0100 ####[facility] [address] [place], [address] Sodium [Moles/Vol] 136 mmol/L Normal 133-145 [facility] Comment on above: Performed By: #### Ruth Ann 882-1, L700.8000, L500.4050, L100.0100 ####[facility] [address] [place], [address] T PROT 6.9 g/dL Normal 5.9-8.4 [facility] Comment on above: Performed By: #### B 882-1, L700.8000, L500.4050, L100.0100 ####[facility] [address] [place], [address] Urea nitrogen [Mass/Vol] 9 mg/dL Normal 4-19 [facility] Comment on above: Performed By: #### B 882-1, L700.8000, L500.4050, L100.0100 ####[facility] [address] [place], [address] Emergency Department Summary on 05-06-2025 Emergency Department Summary [facility] Medical Records Department [address] [place] [address] Emergency Department Summary 05/06/25 MR#: [id number] Acct: [id number] Name: BETSY MESA Rep #: [id number] : 1995 30 From: René Mohan MD PCP: ARLINE CORADO Status:DEP ER Location: ED HPI HPI - Female History of Present Illness Chief Complaint: Vag Bld, Preg Narrative Narrative: 30-year-old female, G7, P5 at approximately 6 weeks gestation presents with vaginal bleeding that began 2 days ago. Of note, she states that 3 days ago she was seen on Sunday in the emergency department for a headache. She had some pelvic cramping. She had been having regular menses before. Back in February, 2 months ago she relates history that she did a home test which was positive, but when she had a urine test performed, was negative. This last month, she found out that she was . When she was seen 3 days ago, she was not having any vaginal bleeding. She states that the following day, she started having vaginal bleeding that was heavier, but now has lightened up to the point where she is only spotting. She passed clots as well. 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 She presents because of increased vaginal bleeding that started 2 days ago, and pelvic cramping as well. [facility] Medical History Migraine Anxiety Paresthesias Cervical radiculopathy Cervicalgia Home Medications ???Medication ???Instructions ???Recorded ???Last Taken ???Type metformin 500 mg tablet 500 mg PO DAILY 04/03/24 Unknown H istory ibuprofen 600 mg tablet 600 mg PO 4X/DAY PRN pain #40 tabs 02/05/25 Unknown Rx cephalexin 500 mg capsule 500 mg PO TID 5 days #15 caps 12/21 Unknown Rx vitamins no.102-iron 90 1 cap PO DAILY #30 caps 05/06/25 U nknown Rx mg-folate 1 mg-dha 200 mg capsule Allergy/AdvReac Type Severity Reaction Status Date / Time acetaminophen (From Vicodin) Allergy Hives Verified 05/06/25 18:00 hydrocodone (From Vicodin) Allergy Hives Verified 05/06/25 18:00 Family History Other Cancer Diabetes Seizures Social History Smoking Status: Current some day smoker tobacco type: cigarettes Tobacco: How many years used: 6 second hand exposure: Yes alcohol intake: current alcohol intake frequency: holidays/special occasions only substance use type: former substance user Date of last use: used some marijuana in the past ROS ROS ED ROS Narrative Review of systems is positive for return of headache, but vaginal bleeding with . Positive pelvic cramping. No fevers or chills, no exacerbating or alleviating factors. EXAM Physical Exam Narrative Exam Narrative: Afebrile. Vital signs noted. Nontoxic-appearing. Cardiovascular examination is regular rate and rhythm. Lungs clear to auscultation bilaterally. Abdomen soft and nontender with positive bowel sounds. No rebound or guarding. Neurological examination nonfocal and nonlateralizing. Upon entering the room, she is looking at her cellular telephone and using it. Const Vital Signs: 05/06/25 18:00 05/06/25 20:33 05/06/25 22:07 Temperature 97.9 F 97.2 F L Temperature Source Temporal Pulse Rate 98 84 74 Respiratory Rate 16 14 16 Blood Pressure 148/89 H 124/74 H 133/87 H Blood Pressure Mean 108 90 102 Pulse Ox 99 99 100 Oxygen Delivery Method Room Air MDM MDM MDM Narrative Medical decision making narrative: Differential diagnosis includes but not limited to ectopic versus margarita miscarriage. However, I did review her previous ED visit. She had an ultrasound which showed an intrauterine gestation at at least 5 weeks, so I doubt ectopic . I will perform a pelvic examination with copy center specialist to see the extent of bleeding that she is having although she states its lightened up. ABO Rh and repeat quantitative measurement will be obtained to see trending upward versus downward. Repeat ultrasound will be performed as well mainly to see if an intrauterine gestation is still present. I reviewed her laboratory work, and she has a normal white count of 7.6 with hemoglobin stable at 11.7. When compared to prior, no significant change. Platelet count 180. CMP is significant for creatinine low at 0.66 with normal BUN of 9, sodium and potassium normal. LFTs are grossly normal. hCG quantitative appropriately elevated at 22,527. When compared to prior, it is up from approximately 12,000 a few days ago. Blood type is O+. I do not feel she needs RhoGAM. Urinalysis negative for infection. I do not feel antibiotics a (more content not included)... Normal [facility] Eosinophil percentageOrdered By: René Mohan on 05-06-2025 Eosinophils/100 WBC (Bld) 2.2 % 0-5 [facility] Erythrocyte distribution wid th ratioOrdered By: René Mohan on 05-06-2025 Erythrocyte distribution width (RBC) [Ratio] 15.2 % High 11.6-14.6 [facility] Erythrocyte distribution wid th standard deviationOrdered By: René Mohan on 05-06-2025 Erythrocyte distribution width (RBC) [Ratio] 48.6 fl High 35.1-43.9 [facility] Glomerular filtration rate ( GFR) estimation/1.73 sq m using serum, plasma, or whole bOrdered By: René Mohan on 05-06-2025 GFR/1.73 sq M.predicted among non-blacks MDRD (S/P/Bld) [Vol rate/Area] 121 mL/min/{1.73_m2} >60 [facility] Comment on above: mL/min/1.73m2 CKD-EP I Creatinine Equation (2020) Hematocrit Auto (Bld) [Volum e fraction]Ordered By: René Mohan on 05-06-2025 Hematocrit (Bld) [Volume fraction] 34.9 % Low 37-47 [facility] Hemoglobin measurementOrdere d By: René Mohan on 05-06-2025 Hemoglobin (Bld) [Mass/Vol] 11.7 g/dL Low 12.0-15.0 [facility] Immature granulocytes/100 WB C Auto (Bld)Ordered By: René Mohan on 05-06-2025 Immature granulocytes/100 WBC (Bld) 0.300 % 0.0-0.9 [facility] Comment on above: IG% - Immature Granu locytes (promyelocytes, myelocytes and metamyelocytes) > 1% indicates that a LEFT SHIFT is Present. Ketones Test strip Ql (U)Ord ered By: René Mohan on 05-06-2025 Ketones Ql (U) Negative Negative [facility] Laboratory - Chemistry and C hemistry - challengeOrdered By: René Mohan on 05-06-2025 AST [Catalytic activity/Vol] 15 U/L <32 [facility] MCV (mean corpuscular volume ) determinationOrdered By: Rneé Mohan on 05-06-2025 MCV (RBC) [Entitic vol] 86.4 fL 81-99 [facility] Mean corpuscular hemoglobin (MCH) determinationOrdered By: René Mohan on 05-06-2025 MCH (RBC) [Entitic mass] 29.0 pg 27.0-32.0 [facility] Mean corpuscular hemoglobin concentration (MCHC) determinationOrdered By: René Mohan on 05-06-2025 MCHC (RBC) [Mass/Vol] 33.5 g/dL 32-36 [facility] Mean platelet volume determi nationOrdered By: René Mohan on 05-06-2025 Platelet mean volume (Bld) [Entitic vol] 11.2 fL 6.2-12.0 [facility] Microscopic analysis of urin e for red blood cells (RBC)Ordered By: René Mohan on 05-06-2025 Microscopic analysis of urine for red blood cells (RBC) 0-5 SEEN /hpf 0-5 [facility] Monocyte percentageOrdered B y: René Mohan on 05-06-2025 Monocytes/100 WBC (Bld) 6.9 % 0-10 [facility] Mucus LM Ql (Urine sed)Order ed By: René Mohan on 05-06-2025 Mucus Ql (Urine sed) 0 SEEN /hpf [facility] Neutrophil percentageOrdered By: René Mohan on 05-06-2025 Neutrophils/100 WBC (Bld) 58.5 % 47-70 [facility] Nitrite Test strip Ql (U)Ord ered By: René Mohan on 05-06-2025 Nitrite Ql (U) Negative Negative [facility] Nucleated red blood cell per centageOrdered By: René Mohan on 05-06-2025 Nucleated RBC/100 WBC (Bld) [Ratio] 0 % 0-5 [facility] Platelet countOrdered By: Chivo Mohan on 05-06-2025 Platelets (Bld) [#/Vol] 180 10*3/uL 150-450 [facility] Potassium measurement (mass/ volume)Ordered By: René Mohan on 05-06-2025 Potassium (Unsp spec) [Mass/Vol] 4.1 mmol/L 3.3-5.1 [facility] Protein Test strip Ql (U)Ord ered By: René Mohan on 05-06-2025 Protein Ql (U) Negative Negative [facility] RBC Auto (Bld) [#/Vol]Ordere d By: René Mohan on 05-06-2025 RBC (Bld) [#/Vol] 4.04 10*6/uL Low 4.2-5.4 [facility] Serum creatinine measurement (mass/volume)Ordered By: René Mohan on 05-06-2025 Creatinine [Mass/Vol] 0.66 mg/dL Low 0.70-1.20 [facility] Serum globulin measurementOr dered By: René Mohan on 05-06-2025 Globulin (S) [Mass/Vol] 2.8 g/dL 2.2-4.2 [facility] Serum glucose measurement (m ass/volume)Ordered By: René Mohan on 05-06-2025 Glucose [Mass/Vol] 115 mg/dL High 70-99 [facility] Serum human chorionic gonado tropin detection for pregnancyOrdered By: René Mohan on 05-06-2025 HCG ( test) [place]l [address] mIU/mL High <9 [facility] Comment on above: Gestational Age0.2-1 Week: 5-50 mIU/mL1-2 Weeks: 50-500 mIU/mL2-3 Weeks: 100-5000 mIU/mL3-4 Weeks: 500-10,000 mIU/mL4-5 Weeks:1000-50,000 mIU/mL5-6 Weeks: 10,000-100,000 mIU/mL6-8 Weeks: 15,000-200,000 mIU/mL2-3 Months:10,000-100,000 mIU/mL Serum or plasma alanine willett otransferase (ALT) measurementOrdered By: René Mohan on 05-06-2025 ALT [Catalytic activity/Vol] 13 U/L <35 [facility] Serum or plasma albumin jelani urement (mass/volume)Ordered By: René Mohan on 05-06-2025 Albumin [Mass/Vol] 4.1 g/dL 3.5-5.0 [facility] Serum or plasma albumin/glob ulin mass ratioOrdered By: René Mohan on 05-06-2025 Albumin/Globulin [Mass ratio] 1.5 {ratio} 0.9-2.4 [facility] Serum or plasma alkaline vincent sphatase measurementOrdered By: René Mohan on 05-06-2025 ALP [Catalytic activity/Vol] 57 U/L 35-104 [facility] Serum or plasma calcium jelani urement (mass/volume)Ordered By: René Mohan on 05-06-2025 Calcium [Mass/Vol] 9.3 mg/dL 7.6-11.0 [facility] Serum or plasma urea nitroge n measurement (mass/volume)Ordered By: René Mohan on 05-06-2025 Urea nitrogen [Mass/Vol] 9 mg/dL 4-19 [facility] Sodium levelOrdered By: René Mohan on 05-06-2025 Sodium [Moles/Vol] 136 mmol/L 133-145 [facility] Squamous epithelial cells de tection in urine sediment by light microscopyOrdered By: René Mohan on 05-06-2025 Epithelial cells.squamous LM Ql (Urine sed) 5-10 SEEN /hpf 5-10 [facility] Total proteinOrdered By: Estelita Mohan on 05-06-2025 Protein [Mass/Vol] 6.9 g/dL 5.9-8.4 [facility] Transvaginal w/Preg USon Transvaginal w/Preg US [facility] Imaging Services [address] [place], [place] [id number] Transvaginal w/Preg US MR#: [id number] Acct: [id number] Name: BETSY MESA Rep #: [id number] : 1995 F 30 From: Laurita Talley PCP: ARLINE CORADO Status: REG ER Study: Transvaginal w/Preg US Date of Exam: 05/06/25 Exam# [id number] Ordering Dr: René Mohan MD PROCEDURE: TRANSVAGINAL W/PREG US 05/06/2025 REASON FOR EXAM: VAGINAL BLEEDING TECHNIQUE: Procedure Code: USTVAGP Modality: US Procedure: TRANSVAGINAL W/PREG US COMPARISON: 05/03/2025 FINDINGS Single intrauterine gestational sac measuring 1.4 cm corresponding with gestational age of 6 weeks and 2 days. Yolk sac measures 3 mm. CRL measures 7 mm corresponding with 6 weeks and 5 days. heart rate of 123 beats per minute. Complex structure is noted adjacent to gestational sac measuring 2.2 x 3.4 x 1.8 cm. Overall sonographic gestational age of 6 weeks and 4 days with KORINA of 12/26/2025. Uterus measures 12.8 x 9.3 x 7.2 cm. No uterine fibroids are noted. Cervix is closed. No free fluid within the cul-de-sac. Right ovary measures 3.7 x 2.0 x 1.7 cm and left ovary measures 3.4 x 2.4 x 2.5 cm. A cyst is noted within the right ovary measures 1.5 x 1.0 x 0.8 cm. US/Transvaginal w/Preg US IMPRESSION: Sonographic gestational age of 6 weeks and 4 days with KORINA of 12/26/2025. Interval visualization of yolk sac and embryo. Again seen is a complex structure adjacent to the gestational sac now measuring 2.2 x 3.4 x 1.8 cm. Reading Location: [id number] CC: Dr. René Mohan MD; ARLINE CORADO Pulverizer Feeder: Signed Normal [facility] Urinalysis, Completeon 05-06 EPI,SQUAMOUS 5-10 SEEN Normal 5-10 [facility] Comment on above: Order Comment: CLEAN CATCH Performed By: #### L 400.0001 ####[facility] [address] [place], [address] RBC 0-5 SEEN Normal 0-5 [facility] Comment on above: Order Comment: CLEAN CATCH Performed By: #### L 400.0001 ####[facility] [address] [place], [address] WBC 0-5 SEEN Normal 0-5 [facility] Comment on above: Order Comment: CLEAN CATCH Performed By: #### L 400.0001 ####[facility] [address] [place], [address] BACTERIA 0 SEEN Normal None Seen [facility] Comment on above: Order Comment: CLEAN CATCH Performed By: #### L 400.0001 ####[facility] [address] [place], [address] Mucus Ql (Urine sed) 0 SEEN Normal [facility] Comment on above: Order Comment: CLEAN CATCH Performed By: #### L 400.0001 ####[facility] [address] [place], [address] Urine clarityOrdered By: Estelita Mohan on 05-06-2025 Clarity (U) Clear Clear [facility] Urine color determinationOrd ered By: René Mohan on 05-06-2025 Color (U) Yellow Yellow [facility] Urine glucose detectionOrder ed By: René Mohan on 05-06-2025 Glucose Ql (U) Normal mg/dl Normal [facility] Urine leukocyte esterase det ection by dipstickOrdered By: René Mohan on 05-06-2025 Leukocyte esterase Test strip Ql (U) 25 /ul High Negative [facility] Urine pHOrdered By: René tolbert on 05-06-2025 pH (U) 6.0 [pH] 5.0 - 8.0 [facility] Urine sediment bacteria coun t by microscopy (number/high power field)Ordered By: René Mohan on 05-06-2025 Bacteria LM.HPF (Urine sed) [#/Area] 0 /[HPF] None Seen [facility] Urine specific gravity measu rementOrdered By: René Mohan on 05-06-2025 Specific gravity (U) [Rel density] 1.020 1.002-1.030 [facility] Urine urobilinogen measureme ntOrdered By: René Mohan on 05-06-2025 Urobilinogen Ql (U) Normal mg/dl Normal [facility] White blood cell (WBC) count Ordered By: René Mohan on 05-06-2025 WBC (Bld) [#/Vol] 7.6 10*3/uL 4.4-11.0 [facility] White blood cell countOrdere d By: René Mohan on 05-06-2025 White blood cell count 0-5 SEEN /hpf 0-5 [facility] hCG Titer Quant., Serumon HCG QUANT. 88515 mIU/mL High <9 non-preg [facility] Comment on above: Result Comment: Gest ational Age 0.2-1 Week: 5-50 mIU/mL 1-2 Weeks: 50-500 mIU/mL 2-3 Weeks: 100-5000 mIU/mL 3-4 Weeks: 500-10,000 mIU/mL 4-5 Weeks:1000-50,000 mIU/mL 5-6 Weeks: 10,000-100,000 mIU/mL 6-8 Weeks: 15,000-200,000 mIU/mL 2-3 Months:10,000-100,000 mIU/mL Performed By: #### B 882-1, L700.8000, L500.4050, L100.0100 ####[facility] [address] [place], [address] Absolute lymphocyte countOrd ered By: Ludwig Aranda on 05-03-2025 Lymphocytes Auto (Unsp spec) [#/Vol] 2.84 10*3/uL 0.83-4.51 [facility] Absolute neutrophil countOrd ered By: Ludwigariel Aranda on 05-03-2025 Neutrophils (Bld) [#/Vol] 4.8 10*3/uL 2.0-7.7 [facility] Anion gap in Serum or Plasma Ordered By: Ludwig Gretchen on 05-03-2025 Anion gap [Moles/Vol] 11 mmol/L - [facility] Automated lymphocyte count a s percentage of total leukocytesOrdered By: Ludwig Manoj on 05-03-2025 Lymphocytes/100 WBC Auto (Unsp spec) 34.3 % [facility] BUN/creatinine ratioOrdered By: [facility] CenterkulwinderPrakashJanay on 05-03-2025 Urea nitrogen/Creatinine [Mass ratio] 12.3 mg/mg 05-18 [facility] Basic Metabolic Profile (BMP )on 05-03-2025 BUN/CRE 12.3 RATIO Normal 05-18 [facility] Comment on above: Performed By: #### L 500.2500, L700.8000, L100.0100 ####[facility] [address] [place], [address] Calcium [Mass/Vol] 9.6 mg/dL Normal 7.6-11.0 [facility] Comment on above: Performed By: #### L 500.2500, L700.8000, L100.0100 ####[facility] [address] [place], [address] Chloride [Moles/Vol] 104 mmol/L Normal 98-108 [facility] Comment on above: Performed By: #### L 500.2500, L700.8000, L100.0100 ####[facility] [address] [place], [address] CO2 [Moles/Vol] 21.7 mmol/L Normal 21.0-32.0 [facility] Comment on above: Performed By: #### L 500.2500, L700.8000, L100.0100 ####[facility] [address] [place], [address] Creatinine [Mass/Vol] 0.69 mg/dL Low 0.70-1.20 [facility] Comment on above: Performed By: #### L 500.2500, L700.8000, L100.0100 ####[facility] [address] [place], [address] ECRCL 159.34 ml/min Normal 50-250 [facility] Comment on above: Performed By: #### L 500.2500, L700.8000, L100.0100 ####[facility] [address] [place], [address] GAP 11 Normal 5-15 [facility] Comment on above: Performed By: #### L 500.2500, L700.8000, L100.0100 ####[facility] [address] [place], [address] GFR/1.73 sq M.predicted among non-blacks MDRD (S/P/Bld) [Vol rate/Area] 120 mL/min/{1.73_m2} Normal >60 [facility] Comment on above: Result Comment: mL/m in/1.73m2 CKD-EPI Creatinine Equation (2020) Performed By: #### L 500.2500, L700.8000, L100.0100 ####[facility] [address] [place], [address] Glucose [Mass/Vol] 126 mg/dL High 70-99 [facility] Comment on above: Performed By: #### L 500.2500, L700.8000, L100.0100 ####[facility] [address] [place], [address] Potassium [Moles/Vol] 4.3 mmol/L Normal 3.3-5.1 [facility] Comment on above: Result Comment: Hemo lysis present, Results??could be affected. ?? Performed By: #### L 500.2500, L700.8000, L100.0100 ####[facility] [address] [place], [address] Sodium [Moles/Vol] 136 mmol/L Normal 133-145 [facility] Comment on above: Performed By: #### L 500.2500, L700.8000, L100.0100 ####[facility] [address] [place], [address] Urea nitrogen [Mass/Vol] 9 mg/dL Normal 4-19 [facility] Comment on above: Performed By: #### L 500.2500, L700.8000, L100.0100 ####[facility] [address] [place], [address] Basophil percentageOrdered B y: Ludwig Aranda on 05-03-2025 Basophils/100 WBC (Bld) 0.4 % 0-1 [facility] Bilirubin Test strip Ql (U)O rdered By: Ludwig Aranda on 05-03-2025 Bilirubin Ql (U) Negative Negative [facility] Brain/Head without Contrasto n 05-03-2025 Brain/Head without Contrast [facility] Imaging Services [address] [place] [address] Brain/Head without Contrast MR#: [id number] Acct: [id number] Name: BETSY MESA Rep #: [id number] : 1995 F 30 From: Julio Cesar Verdugo MD PCP: ARLINE CORADO Status: REG ER Study: Brain/Head without Contrast Date of Exam: 12/21 Exam# [id number] Ordering Dr: Ludwig Aranda DO PROCEDURE: BRAIN/HEAD WITHOUT CONTRAST 05/03/2025 REASON FOR EXAM: HEADACHE TECHNIQUE: Procedure Code: CTBR Modality: CT Procedure: BRAIN/HEAD WITHOUT CONTRAST Coronal and Sagittal reconstruction series were provided. One or more dose reduction techniques were used (e.g., Automated exposure control, adjustment of the mA and/or kV according to patient size, use of iterative reconstruction technique. COMPARISON: 02/05/2025. FINDINGS: No acute intracranial hemorrhage. No midline shift. The ventricles are normal in size and configuration. No extra-axial fluid collection is identified. No fracture. The calvarium is intact. The visualized paranasal sinuses and mastoid air cells are clear. CT/Brain/Head without Contrast IMPRESSION: No acute intracranial CT abnormality. Reading Location: [id number] CC: Dr. Ludwig Aranda DO; ARLINE CORADO Pulverizer Feeder: Signed Normal [facility] CBC W/Diff, Automatedon 10-0 Absolute Lymph 2.84 X10 3/uL Normal 0.83-4.51 [facility] Comment on above: Performed By: #### L 500.2500, L700.8000, L100.0100 ####[facility] [address] [place], [address] Absolute Neut 4.8 X10 3/uL Normal 2.0-7.7 [facility] Comment on above: Performed By: #### L 500.2500, L700.8000, L100.0100 ####[facility] [address] [place], [address] Basophils/100 WBC (Bld) 0.4 % Normal 0-1 [facility] Comment on above: Performed By: #### L 500.2500, L700.8000, L100.0100 ####[facility] [address] [place], [address] Eosinophils/100 WBC (Bld) 1.8 % Normal 0-5 [facility] Comment on above: Performed By: #### L 500.2500, L700.8000, L100.0100 ####[facility] [address] [place], [address] Erythrocyte distribution width (RBC) [Ratio] 15.6 % High 11.6-14.6 [facility] Comment on above: Performed By: #### L 500.2500, L700.8000, L100.0100 ####[facility] [address] [place], [address] Hematocrit (Bld) [Volume fraction] 35.4 % Low 37-47 [facility] Comment on above: Performed By: #### L 500.2500, L700.8000, L100.0100 ####[facility] [address] [place], [address] Hemoglobin (Bld) [Mass/Vol] 11.7 g/dL Low 12.0-15.0 [facility] Comment on above: Performed By: #### L 500.2500, L700.8000, L100.0100 ####[facility] [address] [place], [address] IG% 0.200 Normal 0.0-0.9 [facility] Comment on above: Result Comment: IG% - Immature Granulocytes (promyelocytes, myelocytes and metamyelocytes) > 1% indicates that a LEFT SHIFT is Present. Performed By: #### L 500.2500, L700.8000, L100.0100 ####[facility] [address] [place], [address] Lymphocytes/100 WBC (Bld) 34.3 % Normal 19-41 [facility] Comment on above: Performed By: #### L 500.2500, L700.8000, L100.0100 ####[facility] [address] [place], [address] MCH (RBC) [Entitic mass] 28.5 pg Normal 27.0-32.0 [facility] Comment on above: Performed By: #### L 500.2500, L700.8000, L100.0100 ####[facility] [address] [place], [address] MCHC (RBC) [Mass/Vol] 33.1 g/dL Normal 32-36 [facility] Comment on above: Performed By: #### L 500.2500, L700.8000, L100.0100 ####[facility] [address] [place], [address] MCV (RBC) [Entitic vol] 86.3 fL Normal 81-99 [facility] Comment on above: Performed By: #### L 500.2500, L700.8000, L100.0100 ####[facility] [address] [place], [address] Monocytes/100 WBC (Bld) 5.6 % Normal 0-10 [facility] Comment on above: Performed By: #### L 500.2500, L700.8000, L100.0100 ####[facility] [address] [place], [address] Neutrophils/100 WBC (Bld) 57.7 % Normal 47-70 [facility] Comment on above: Performed By: #### L 500.2500, L700.8000, L100.0100 ####[facility] [address] [place], [address] Nucleated RBC (Bld) [#/Vol] 0 10*3/uL Normal 0-5 [facility] Comment on above: Performed By: #### L 500.2500, L700.8000, L100.0100 ####[facility] [address] [place], [address] Platelet mean volume (Bld) [Entitic vol] 10.6 fL Normal 6.2-12.0 [facility] Comment on above: Performed By: #### L 500.2500, L700.8000, L100.0100 ####[facility] [address] [place], [address] Platelets (Bld) [#/Vol] 169 10*3/uL Normal 150-450 [facility] Comment on above: Performed By: #### L 500.2500, L700.8000, L100.0100 ####[facility] [address] [place], [address] RBC (Bld) [#/Vol] 4.10 10*6/uL Low 4.2-5.4 [facility] Comment on above: Performed By: #### L 500.2500, L700.8000, L100.0100 ####[facility] [address] [place], [address] RDW SD 49.6 fl High 35.1-43.9 [facility] Comment on above: Performed By: #### L 500.2500, L700.8000, L100.0100 ####[facility] [address] [place], [address] WBC (Bld) [#/Vol] 8.3 10*3/uL Normal 4.4-11.0 [facility] Comment on above: Performed By: #### L 500.2500, L700.8000, L100.0100 ####[facility] [address] [place], [address] Carbon dioxide, total [Moles /volume] in Central venous bloodOrdered By: Ludwig Aranda on 05-03-2025 CO2 [Moles/Vol] 21.7 mmol/L 21.0-32.0 [facility] Chloride assayOrdered By: Carlos Aranda on 05-03-2025 Chloride [Moles/Vol] 104 mmol/L 98-108 [facility] Emergency Department Summary on 05-03-2025 Emergency Department Summary [facility] Medical Records Department [address] [place] [address] Emergency Department Summary 05/03/25 MR#: [id number] Acct: [id number] Name: BETSY MESA Rep #: [id number] : 1995 30 From: Ludwig Aranda DO PCP: ARLINE CORADO Status:REG ER Location: ED HPI HPI - Female History of Present Illness Chief Complaint: Narrative Narrative: Chief complaint and HPI: 30-year-old female who is who is 6 weeks by last menstrual period presents for evaluation of pelvic cramping and headache. Patient states her last menstrual cycle was 03/24/2025. States her PCP took a blood test which showed she was . Patient states for the past 2 days she has been having a headache with pelvic cramping. Denies any vaginal bleeding. Endorses nausea without vomiting. Denies any fever, chills, shortness of breath, chest pain, URI symptoms. Review of systems: See HPI Medications: As listed on the chart Allergies: As listed on the chart PFSH: Per chart Vital signs: As listed on the chart. Reviewed. Physical exam: Gen: A O x3, NAD Head: Normocephalic, atraumatic Eyes: No sclera icterus, conjunctiva clear, PERRL ENT: Moist mucous membranes Neck: Trachea midline, full range of motion CV: RRR, no murmurs, no peripheral edema Resp: Lungs CTA BL, no w/r/c GI: Abd soft, non-distended, non-tender, no r/r/g Musc: Full ROM, no deformity Skin: Warm, dry Neuro: Alert, oriented, grossly intact, sensation intact Psych: Cooperative, appropriate mood and affect [facility] Anxiety Paresthesias Cervical radiculopathy Cervicalgia Home Medications ???Medication ???Instructions ???Recorded ???Last Taken ???Type metformin 500 mg tablet 500 mg PO DAILY 04/03/24 Unknown H istory ibuprofen 600 mg tablet 600 mg PO 4X/DAY PRN pain #40 tabs 02/05/25 Unknown Rx Allergy/AdvReac Type Severity Reaction Status Date / Time acetaminophen (From Vicodin) Allergy Hives Verified 05/03/25 19:30 hydrocodone (From Vicodin) Allergy Hives Verified 05/03/25 19:30 Family History Other Cancer Diabetes Seizures Social History Smoking Status: Current every day smoker tobacco type: cigarettes Tobacco: How many years used: 6 second hand exposure: Yes alcohol intake: current alcohol intake frequency: holidays/special occasions only substance use type: former substance user Date of last use: used some marijuana in the past EXAM Physical Exam Const Vital Signs: 05/03/25 19:30 05/03/25 21:30 Temperature 97.8 F Temperature Source Temporal Pulse Rate 84 72 Respiratory Rate 18 18 Blood Pressure 140/94 H 132/87 H Blood Pressure Mean 109 102 Pulse Ox 98 100 Oxygen Delivery Method Room Air MDM MDM MDM Narrative Medical decision making narrative: 30-year-old female who is who is 6 weeks by last menstrual period presents for evaluation of pelvic cramping and headache. Patient states her last menstrual cycle was 03/24/2025. States her PCP took a blood test which showed she was . Patient states for the past 2 days she has been having a headache with pelvic cramping. Denies any vaginal bleeding. Endorses nausea without vomiting. States she has been taking Tylenol with minimal relief. Differential diagnosis includes but is not limited to tension headache, migraine headache, dehydration, electrolyte abnormality, anemia, UTI, ectopic , symptomatic first trimester . Offered Tylenol for her headache although she states she wants something stronger as Tylenol is not working. I did offer morphine however told her that it can make headaches worse as well as there is some risk to the . Patient confirmed she understands of the risks but consented to morphine. Morphine, Zofran, NS bolus ordered. Given patient has no history of migraines or consistent headaches in the past we will perform CT head, however low suspicion for any intracranial abnormality. Laboratory workup ordered including transvaginal ultrasound. CBC without leukocytosis. Patient has baseline anemia of 11.7. Platelets unremarkable. BMP unremarkable. Beta-hCG 12,116. UA negative for UTI. This is also not a clean sample with squamous epithelial cells. Patient does have bacteria in her urine we will treat her for asymptomatic bacteriuria in . CT of the brain shows no acute intracranial abnormality. Transvaginal ultrasound shows intrauterine gestational sac with an estimated gestational age of 5 weeks 5 days. No pole or yolk sac is identified at this time. Represents early IUP. Mixed echogenic area within the lower uter (more content not included)... Normal [facility] Eosinophil percentageOrdered By: Ludwig Aranda on 05-03-2025 Eosinophils/100 WBC (Bld) 1.8 % 0-5 [facility] Erythrocyte distribution wid th ratioOrdered By: Cement Manoj on 05-03-2025 Erythrocyte distribution width (RBC) [Ratio] 15.6 % High 11.6-14.6 [facility] Erythrocyte distribution wid th standard deviationOrdered By: Ludwig Angie Gustafson on 05-03-2025 Erythrocyte distribution width (RBC) [Ratio] 49.6 fl High 35.1-43.9 [facility] Glomerular filtration rate ( GFR) estimation/1.73 sq m using serum, plasma, or whole bOrdered By: Ludwig Aranda on 05-03-2025 GFR/1.73 sq M.predicted among non-blacks MDRD (S/P/Bld) [Vol rate/Area] 120 mL/min/{1.73_m2} >60 [facility] Comment on above: mL/min/1.73m2 CKD-EP I Creatinine Equation (2020) Hematocrit Auto (Bld) [Volum e fraction]Ordered By: Ludwig Aranda on 05-03-2025 Hematocrit (Bld) [Volume fraction] 35.4 % Low 37-47 [facility] Hemoglobin measurementOrdere d By: Ludwig Aranda on 05-03-2025 Hemoglobin (Bld) [Mass/Vol] 11.7 g/dL Low 12.0-15.0 [facility] Immature granulocytes/100 WB C Auto (Bld)Ordered By: Ludwig Aranda on 05-03-2025 Immature granulocytes/100 WBC (Bld) 0.200 % 0.0-0.9 [facility] Comment on above: IG% - Immature Granu locytes (promyelocytes, myelocytes and metamyelocytes) > 1% indicates that a LEFT SHIFT is Present. Ketones Test strip Ql (U)Ord ered By: Ludwig Aranda on 05-03-2025 Ketones Ql (U) Negative Negative [facility] MCV (mean corpuscular volume ) determinationOrdered By: Ludwig Aranda on 05-03-2025 MCV (RBC) [Entitic vol] 86.3 fL 81-99 [facility] Mean corpuscular hemoglobin (MCH) determinationOrdered By: Ludwig Aranda on 05-03-2025 MCH (RBC) [Entitic mass] 28.5 pg 27.0-32.0 [facility] Mean corpuscular hemoglobin concentration (MCHC) determinationOrdered By: Ludwig Aranda on 05-03-2025 MCHC (RBC) [Mass/Vol] 33.1 g/dL 32-36 [facility] Mean platelet volume determi nationOrdered By: Ludwig Aranda on 05-03-2025 Platelet mean volume (Bld) [Entitic vol] 10.6 fL 6.2-12.0 [facility] Microscopic analysis of urin e for red blood cells (RBC)Ordered By: Ludwig Aranda on 05-03-2025 Microscopic analysis of urine for red blood cells (RBC) 0-5 SEEN /hpf 0-5 [facility] Monocyte percentageOrdered B y: Ludwig Aranda on 05-03-2025 Monocytes/100 WBC (Bld) 5.6 % 0-10 [facility] Mucus LM Ql (Urine sed)Order ed By: Ludwig Aranda on 05-03-2025 Mucus Ql (Urine sed) 0 SEEN /hpf [facility] Neutrophil percentageOrdered By: Ludwig Aranda on 05-03-2025 Neutrophils/100 WBC (Bld) 57.7 % 47-70 [facility] Nitrite Test strip Ql (U)Ord ered By: Ludwig Aranda on 05-03-2025 Nitrite Ql (U) Negative Negative [facility] Nucleated red blood cell per centageOrdered By: Ludwig Aranda on 05-03-2025 Nucleated RBC/100 WBC (Bld) [Ratio] 0 % 0-5 [facility] Platelet countOrdered By: Carlos Aranda on 05-03-2025 Platelets (Bld) [#/Vol] 169 10*3/uL 150-450 [facility] Potassium measurement (mass/ volume)Ordered By: Ludwig Aranda on 05-03-2025 Potassium (Unsp spec) [Mass/Vol] 4.3 mmol/L 3.3-5.1 [facility] Comment on above: Hemolysis present, R esults could be affected. Protein Test strip Ql (U)Ord ered By: Ludwig Aranda on 05-03-2025 Protein Ql (U) 30 mg/dl High Negative [facility] RBC Auto (Bld) [#/Vol]Ordere d By: Ludwig Aranda on 05-03-2025 RBC (Bld) [#/Vol] 4.10 10*6/uL Low 4.2-5.4 [facility] Serum creatinine measurement (mass/volume)Ordered By: Ludwig Aranda on 05-03-2025 Creatinine [Mass/Vol] 0.69 mg/dL Low 0.70-1.20 [facility] Serum glucose measurement (m ass/volume)Ordered By: Ludwig Aranda on 05-03-2025 Glucose [Mass/Vol] 126 mg/dL High 70-99 [facility] Serum human chorionic gonado tropin detection for pregnancyOrdered By: Ludwig Aranda on 05-03-2025 HCG ( test) [place]l [address] mIU/mL High <9 [facility] Comment on above: Gestational Age0.2-1 Week: 5-50 mIU/mL1-2 Weeks: 50-500 mIU/mL2-3 Weeks: 100-5000 mIU/mL3-4 Weeks: 500-10,000 mIU/mL4-5 Weeks:1000-50,000 mIU/mL5-6 Weeks: 10,000-100,000 mIU/mL6-8 Weeks: 15,000-200,000 mIU/mL2-3 Months:10,000-100,000 mIU/mL Serum or plasma calcium jelani urement (mass/volume)Ordered By: Ludwig Gustafson on 05-03-2025 Calcium [Mass/Vol] 9.6 mg/dL 7.6-11.0 [facility] Serum or plasma urea nitroge n measurement (mass/volume)Ordered By: Ludwig Aranda on 05-03-2025 Urea nitrogen [Mass/Vol] 9 mg/dL 4-19 [facility] Sodium levelOrdered By: Manjit Aranda on 05-03-2025 Sodium [Moles/Vol] 136 mmol/L 133-145 [facility] Squamous epithelial cells de tection in urine sediment by light microscopyOrdered By: Ludwig Aranda on 05-03-2025 Epithelial cells.squamous LM Ql (Urine sed) 10-25 SEEN /hpf 5-10 [facility] Transitional cells detection in urine sediment by light microscopyOrdered By: Ludwig Aranda on 05-03-2025 Transitional cells LM Ql (Urine sed) 0-5 SEEN /hpf 0-5 [facility] Transvaginal w/Preg USon Transvaginal w/Preg US [facility] Services [address] [place], [place] [id number] Transvaginal w/Preg US MR#: [id number] Acct: [id number] Name: BETSY MESA Rep #: [id number] : 1995 F 30 From: Julio Cesar Verdugo MD PCP: ARLINE CORADO Status: REG ER Study: Transvaginal w/Preg US Date of Exam: 05/03/25 Exam# [id number] Ordering Dr: Ludwig Aranda DO PROCEDURE: TRANSVAGINAL W/PREG US 05/03/2025 REASON FOR EXAM: PELVIC CRAMPING TECHNIQUE: Procedure Code: USTVAGP Modality: US Procedure: TRANSVAGINAL W/PREG US FINDINGS The uterus measures 12.6 x 8.9 x 7.3 cm. Within the uterine cavity, there is a gestational sac with a mean sac diameter of 10 mm, suggestive of an estimated gestational age of 5 weeks 5 days +/-10 days. No pole nor yolk sac is identified at this time. Mixed echogenic areas noted within the lower uterine cavity, measuring 2.6 x 2.5 x 0.9 cm in aggregate, probably representing nonspecific fluid. The right ovary is not visualized. No abnormal right adnexal mass or fluid collection. The left ovary is identified, measuring 3.9 x 3.2 x 2.5 cm. No focal lesion. Color Doppler blood flow is demonstrated within the left ovary. No abnormal left adnexal mass or fluid collection. No free fluid within the pelvis. US/Transvaginal w/Preg US IMPRESSION: 1. Intrauterine gestational sac with an estimated gestational age of 5 weeks 5 days +/-10 days by mean sac diameter. No pole nor yolk sac is identified at this time. This likely represents a very early intrauterine . Recommend serial beta HCG levels and a short interval follow-up pelvic ultrasound. 2. Mixed echogenic area within the lower uterine cavity, probably representing nonspecific fluid. Attention should be paid on follow-up imaging. Reading Location: [id number] CC: Dr. Ludwig Aranda DO; ARLINE CORADO Pulverizer Feeder: Signed Normal [facility] Urinalysis, Completeon 05-03 BACTERIA 1+ /hpf Normal None Seen [facility] Comment on above: Order Comment: CLEAN CATCH Performed By: #### L 400.0001 #### [facility] [address] [place], [address] EPI,SQUAMOUS 10-25 SEEN Normal 5-10 [facility] Comment on above: Order Comment: CLEAN CATCH Performed By: #### L 400.0001 #### [facility] [address] [place], [address] EPI,TRANSITION 0-5 SEEN Normal 0-5 [facility] Comment on above: Order Comment: CLEAN CATCH Performed By: #### L 400.0001 #### [facility] [address] [place], [address] RBC 0-5 SEEN Normal 0-5 [facility] Comment on above: Order Comment: CLEAN CATCH Performed By: #### L 400.0001 #### [facility] [address] [place], [address] WBC 10-25 SEEN Normal 0-5 [facility] Comment on above: Order Comment: CLEAN CATCH Performed By: #### L 400.0001 #### [facility] [address] [place], [address] Mucus Ql (Urine sed) 0 SEEN Normal [facility] Comment on above: Order Comment: CLEAN CATCH Performed By: #### L 400.0001 #### [facility] [address] [place], [address] Urine clarityOrdered By: Pavan Aranda on 05-03-2025 Clarity (U) Clear Clear [facility] Urine color determinationOrd ered By: Ludwig Aranda on 05-03-2025 Color (U) Yellow Yellow [facility] Urine glucose detectionOrder ed By: Ludwig Aranda on 05-03-2025 Glucose Ql (U) Normal mg/dl Normal [facility] Urine leukocyte esterase det ection by dipstickOrdered By: Ludwig Aranda on 05-03-2025 Leukocyte esterase Test strip Ql (U) 25 /ul High Negative [facility] Urine pHOrdered By: Ludwig Godinez on 05-03-2025 pH (U) 6.0 [pH] 5.0 - 8.0 [facility] Urine sediment bacteria coun t by microscopy (number/high power field)Ordered By: Ludwig Aranda on 05-03-2025 Bacteria LM.HPF (Urine sed) [#/Area] 1 /[HPF] None Seen [facility] Urine specific gravity measu rementOrdered By: Ludwig Aranda on 05-03-2025 Specific gravity (U) [Rel density] 1.025 1.002-1.030 [facility] Urine urobilinogen measureme ntOrdered By: Ludwigariel Aranda on 05-03-2025 Urobilinogen Ql (U) Normal mg/dl Normal [facility] White blood cell (WBC) count Ordered By: Ludwig Aranda on 05-03-2025 WBC (Bld) [#/Vol] 8.3 10*3/uL 4.4-11.0 [facility] White blood cell countOrdere d By: Ludwig Aranda on 05-03-2025 White blood cell count 10-25 SEEN /hpf 0-5 [facility] hCG Titer Quant., Serumon HCG QUANT. 50503 mIU/mL High <9 non-preg [facility] Comment on above: Result Comment: Gest ational Age 0.2-1 Week: 5-50 mIU/mL 1-2 Weeks: 50-500 mIU/mL 2-3 Weeks: 100-5000 mIU/mL 3-4 Weeks: 500-10,000 mIU/mL 4-5 Weeks:1000-50,000 mIU/mL 5-6 Weeks: 10,000-100,000 mIU/mL 6-8 Weeks: 15,000-200,000 mIU/mL 2-3 Months:10,000-100,000 mIU/mL Performed By: #### L 500.2500, L700.8000, L100.0100 ####[facility] [address] [place], [address] .Auto Diffon 04-17-2025 Basophil, Absolute 0.0 10 3/mcL Normal 0.0-0.3 [facility] Comment on above: Performed By: #### T SH, CBC, FERR, FE, PREGS, ADIFF, ANEU #### [address] [address] Lymphocyte, Absolute 2.9 10 3/mcL Normal 0.9-4.3 [facility] Comment on above: Performed By: #### T SH, CBC, FERR, FE, PREGS, ADIFF, ANEU #### [address] [address] Monocyte, Absolute 0.4 10 3/mcL Normal 0.1-1.4 [facility] Comment on above: Performed By: #### T SH, CBC, FERR, FE, PREGS, ADIFF, ANEU #### [address] [address] .Auto DiffOrdered By: SYSTEM SYSTEM on 04-17-2025 Basophils/100 WBC (Bld) 0.3 % Normal 0.0-2.5 [facility] Comment on above: Performed By: #### T SH, CBC, FERR, FE, PREGS, ADIFF, ANEU #### [address] [address] Eosinophil, Absolute 0.1 103/mcL Normal 0.0-0.7 [facility] Comment on above: Performed By: #### T SH, CBC, FERR, FE, PREGS, ADIFF, ANEU #### [address] [address] Eosinophils/100 WBC (Bld) 1.4 % Normal 0.0-6.0 [facility] Comment on above: Performed By: #### T SH, CBC, FERR, FE, PREGS, ADIFF, ANEU #### [address] [address] Lymphocytes/100 WBC (Bld) 36.7 % Normal 20.0-40.0 [facility] Comment on above: Performed By: #### T SH, CBC, FERR, FE, PREGS, ADIFF, ANEU #### [address] [address] Monocytes/100 WBC (Bld) 5.4 % Normal 2.0-13.0 [facility] Comment on above: Performed By: #### T SH, CBC, FERR, FE, PREGS, ADIFF, ANEU #### [address] [address] Neutrophils/100 WBC (Bld) 56.2 % Normal 50.0-75.0 [facility] Comment on above: Performed By: #### T SH, CBC, FERR, FE, PREGS, ADIFF, ANEU #### [address] [address] .NEUABSon 04-17-2025 Neutrophil, Absolute 4.5 10 3/mcL Normal 2.3-8.1 [facility] Comment on above: Performed By: #### T SH, CBC, FERR, FE, PREGS, ADIFF, ANEU #### [address] [address] CBCOrdered By: SYSTEM SYSTEM on 04-17-2025 Erythrocyte distribution width (RBC) [Ratio] 16.6 % High 11.5-15.5 [facility] Comment on above: Performed By: #### T SH, CBC, FERR, FE, PREGS, ADIFF, ANEU #### [address] [address] Hematocrit (Bld) [Volume fraction] 36.9 % Normal 34.0-46.0 [facility] Comment on above: Performed By: #### T SH, CBC, FERR, FE, PREGS, ADIFF, ANEU #### [address] [address] MCH (RBC) [Entitic mass] 28.3 pg Normal 27.0-33.0 [facility] Comment on above: Performed By: #### T SH, CBC, FERR, FE, PREGS, ADIFF, ANEU #### [address] [address] MCHC 33.6 G/dL Normal 32.0-36.0 [facility] Workflow [facility] Comment on above: Performed By: #### T SH, CBC, FERR, FE, PREGS, ADIFF, ANEU #### [address] [address] MCV (RBC) [Entitic vol] 84.0 fL Normal 80.0-99.0 [facility] Comment on above: Performed By: #### T SH, CBC, FERR, FE, PREGS, ADIFF, ANEU #### [place] [address] Platelet mean volume (Bld) [Entitic vol] 9.0 fL Normal 6.6-10.5 [facility] Workflow [facility] Comment on above: Performed By: #### T SH, CBC, FERR, FE, PREGS, ADIFF, ANEU #### [address] [address] CBCon 04-17-2025 Hgb 12.4 G/dL Normal 12.0-16.0 [facility] Comment on above: Performed By: #### T SH, CBC, FERR, FE, PREGS, ADIFF, ANEU #### [address] [address] Platelet 189 10 3/mcL Normal 150-450 [facility] Comment on above: Performed By: #### T SH, CBC, FERR, FE, PREGS, ADIFF, ANEU #### [address] [address] RBC 4.40 10 6/mcL Normal 4.10-5.30 [facility] Comment on above: Performed By: #### T SH, CBC, FERR, FE, PREGS, ADIFF, ANEU #### [place] [address] WBC 8.0 10 3/mcL Normal 4.5-10.8 [facility] Comment on above: Performed By: #### T SH, CBC, FERR, FE, PREGS, ADIFF, ANEU #### [place] [address] FEOrdered By: SYSTEM SYSTEM on 04-17-2025 Iron [Mass/Vol] 94 ug/dL Normal 50-170 AO ADM SS Comment on above: Performed By: #### H CGQ #### Zaheer [address] [address] FERROrdered By: SYSTEM MobisanteE M on 04-17-2025 Ferritin [Mass/Vol] 21.0 ng/mL Normal 8.0-252.0 AO AD M SS Comment on above: Performed By: #### H CGQ #### Zaheer [address] [address] LABORATORYOrdered By: SYSTEM SYSTEM on 04-17-2025 Basophils [...] SS PREGSon 04-17-2025 test (s) Positive Normal [facility] Comment on above: Performed By: #### H CGQ #### Zaheer [place] [address] [place], [place] [address] PREGSOrdered By: Vinod johnson on 04-17-2025 test (s) int Detected Invalid Interpretation Code AO Rapid Testing SS Comment on above: Performed By: #### H CGQ #### [place] [place] [address] [place], [place] [address] TSHOrdered By: SYSTEM SYSTEM on 04-17-2025 TSH Qn 0.67 m[IU]/L Normal 0.36-3.74 AO ADM SS Comment on above: Performed By: #### H CGQ #### Za[address] [place] [address] [place], [place] [address] Basic Metabolic Profile (BMP )on 03-23-2025 BUN/CRE 11.9 RATIO Normal 10-20 [facility] Comment on above: Performed By: #### L 500.2500, L100.0100, L501.5200, L700.6800 ####[facility] [address] [place], [address] Calcium [Mass/Vol] 9.0 mg/dL Normal 7.6-11.0 [facility] Comment on above: Performed By: #### L 500.2500, L100.0100, L501.5200, L700.6800 ####[facility] [address] [place], [address] Chloride [Moles/Vol] 105 mmol/L Normal 98-108 [facility] Comment on above: Performed By: #### L 500.2500, L100.0100, L501.5200, L700.6800 ####[facility] [address] [place], [address] CO2 [Moles/Vol] 23.8 mmol/L Normal 21.0-32.0 [facility] Comment on above: Performed By: #### L 500.2500, L100.0100, L501.5200, L700.6800 ####[facility] [address] [place], [address] Creatinine [Mass/Vol] 0.79 mg/dL Normal 0.70-1.20 [facility] Comment on above: Performed By: #### L 500.2500, L100.0100, L501.5200, L700.6800 ####[facility] [address] [place], [address] ECRCL 138.70 ml/min Normal 50-250 [facility] Comment on above: Performed By: #### L 500.2500, L100.0100, L501.5200, L700.6800 ####[facility] [address] [place], [address] GAP 11 Normal 5-15 [facility] Comment on above: Performed By: #### L 500.2500, L100.0100, L501.5200, L700.6800 ####[facility] [address] [place], [address] GFR/1.73 sq M.predicted among non-blacks MDRD (S/P/Bld) [Vol rate/Area] 103 mL/min/{1.73_m2} Normal >60 [facility] Comment on above: Result Comment: mL/m in/1.73m2 CKD-EPI Creatinine Equation (2020) Performed By: #### L 500.2500, L100.0100, L501.5200, L700.6800 ####[facility] [address] [place], [address] Glucose [Mass/Vol] 136 mg/dL High 70-99 [facility] Comment on above: Performed By: #### L 500.2500, L100.0100, L501.5200, L700.6800 ####[facility] [address] [place], [address] Potassium [Moles/Vol] 3.5 mmol/L Normal 3.3-5.1 [facility] Comment on above: Performed By: #### L 500.2500, L100.0100, L501.5200, L700.6800 ####[facility] [address] [place], [address] Sodium [Moles/Vol] 139 mmol/L Normal 133-145 [facility] Comment on above: Performed By: #### L 500.2500, L100.0100, L501.5200, L700.6800 ####[facility] [address] [place], [address] Urea nitrogen [Mass/Vol] 9 mg/dL Normal 4-19 [facility] Comment on above: Performed By: #### L 500.2500, L100.0100, L501.5200, L700.6800 ####[facility] [address] [place], [address] CBC W/Diff, Automatedon 08-2 5-2024 Absolute Lymph 3.11 X10 3/uL Normal 0.83-4.51 [facility] Comment on above: Performed By: #### L 500.2500, L100.0100, L501.5200, L700.6800 ####[facility] [address] [place], [address] Absolute Neut 3.5 X10 3/uL Normal 2.0-7.7 [facility] Comment on above: Performed By: #### L 500.2500, L100.0100, L501.5200, L700.6800 ####[facility] [address] [place], [address] Basophils/100 WBC (Bld) 0.5 % Normal 0-1 [facility] Comment on above: Performed By: #### L 500.2500, L100.0100, L501.5200, L700.6800 ####[facility] [address] [place], [address] Eosinophils/100 WBC (Bld) 2.6 % Normal 0-5 [facility] Comment on above: Performed By: #### L 500.2500, L100.0100, L501.5200, L700.6800 ####[facility] [address] [place], [address] Erythrocyte distribution width (RBC) [Ratio] 15.2 % High 11.6-14.6 [facility] Comment on above: Performed By: #### L 500.2500, L100.0100, L501.5200, L700.6800 ####[facility] [address] [place], [address] Hematocrit (Bld) [Volume fraction] 33.4 % Low 37-47 [facility] Comment on above: Performed By: #### L 500.2500, L100.0100, L501.5200, L700.6800 ####[facility] [address] [place], [address] Hemoglobin (Bld) [Mass/Vol] 11.1 g/dL Low 12.0-15.0 [facility] Comment on above: Performed By: #### L 500.2500, L100.0100, L501.5200, L700.6800 ####[facility] [address] [place], [address] IG% 0.100 Normal 0.0-0.9 [facility] Comment on above: Result Comment: IG% - Immature Granulocytes (promyelocytes, myelocytes and metamyelocytes) > 1% indicates that a LEFT SHIFT is Present. Performed By: #### L 500.2500, L100.0100, L501.5200, L700.6800 ####[facility] [address] [place], [address] Lymphocytes/100 WBC (Bld) 42.1 % High 19-41 [facility] Comment on above: Performed By: #### L 500.2500, L100.0100, L501.5200, L700.6800 ####[facility] [address] [place], [address] MCH (RBC) [Entitic mass] 28.2 pg Normal 27.0-32.0 [facility] Comment on above: Performed By: #### L 500.2500, L100.0100, L501.5200, L700.6800 ####[facility] [address] [place], [address] MCHC (RBC) [Mass/Vol] 33.2 g/dL Normal 32-36 [facility] Comment on above: Performed By: #### L 500.2500, L100.0100, L501.5200, L700.6800 ####[facility] [address] [place], [address] MCV (RBC) [Entitic vol] 85.0 fL Normal 81-99 [facility] Comment on above: Performed By: #### L 500.2500, L100.0100, L501.5200, L700.6800 ####[facility] [address] [place], [address] Monocytes/100 WBC (Bld) 6.6 % Normal 0-10 [facility] Comment on above: Performed By: #### L 500.2500, L100.0100, L501.5200, L700.6800 ####[facility] [address] [place], [address] Neutrophils/100 WBC (Bld) 48.1 % Normal 47-70 [facility] Comment on above: Performed By: #### L 500.2500, L100.0100, L501.5200, L700.6800 ####[facility] [address] [place], [address] Nucleated RBC (Bld) [#/Vol] 0 10*3/uL Normal 0-5 [facility] Comment on above: Performed By: #### L 500.2500, L100.0100, L501.5200, L700.6800 ####[facility] [address] [place], [address] Platelet mean volume (Bld) [Entitic vol] 11.4 fL Normal 6.2-12.0 [facility] Comment on above: Performed By: #### L 500.2500, L100.0100, L501.5200, L700.6800 ####[facility] [address] [place], [address] Platelets (Bld) [#/Vol] 210 10*3/uL Normal 150-450 [facility] Comment on above: Performed By: #### L 500.2500, L100.0100, L501.5200, L700.6800 ####[facility] [address] [place], [address] RBC (Bld) [#/Vol] 3.93 10*6/uL Low 4.2-5.4 [facility] Comment on above: Performed By: #### L 500.2500, L100.0100, L501.5200, L700.6800 ####[facility] [address] [place], [address] RDW SD 47.3 fl High 35.1-43.9 [facility] Comment on above: Performed By: #### L 500.2500, L100.0100, L501.5200, L700.6800 ####[facility] [address] [place], [address] WBC (Bld) [#/Vol] 7.4 10*3/uL Normal 4.4-11.0 [facility] Comment on above: Performed By: #### L 500.2500, L100.0100, L501.5200, L700.6800 ####[facility] [address] [place], [address] Emergency Department Summary on 03-23-2025 Emergency Department Summary [facility] Medical Records Department [address] [place] [address] Emergency Department Summary 03/23/25 MR#: [id number] Acct: [id number] Name: BETSY MESA Rep #: [id number] : 1995 30 From: Nelson Ulloa DO PCP: ARLINE CORADO [...] or secondary infection she presents for evaluation [facility] Medical History Anxiety Paresthesias Cervical [...] drift no (more content not included)... Normal [facility] Magnesiumon 03-23-2025 Magnesium [Mass/Vol] 2.1 mg/dL Normal 1.5-2.2 [facility] Comment on above: Performed By: #### L 500.2500, L100.0100, L501.5200, L700.6800 ####[facility] [address] [place], [place], [address] ,Serum,hCG Quali.on 03-23-2025 HCG, SERUM QUAL Negative Normal [facility] Comment on above: Performed By: #### L 500.2500, L100.0100, L501.5200, L700.6800 ####[facility] [address] [place], [place], [address] Absolute lymphocyte countOrd ered By: Nelson Ulloa on 03-22-2025 Lymphocytes Auto (Unsp spec) [#/Vol] 3.11 10*3/uL 0.83-4.51 [facility] Absolute neutrophil countOrd ered By: Nelson Ulloa on 03-22-2025 Neutrophils (Bld) [#/Vol] 3.5 10*3/uL 2.0-7.7 [facility] Anion gap in Serum or Plasma Ordered By: Nelson Ulloa on 03-22-2025 Anion gap [Moles/Vol] 11 mmol/L 5-15 [facility] Automated lymphocyte count a s percentage of total leukocytesOrdered By: Nelson Ulloa on 03-22-2025 Lymphocytes/100 WBC Auto (Unsp spec) 42.1 % High 19-41 [facility] BUN/creatinine ratioOrdered By: Nelson Ulloa on 03-22-2025 Urea nitrogen/Creatinine [Mass ratio] 11.9 mg/mg 10-20 [facility] Basophil percentageOrdered B y: Nelson Ulloa on 03-22-2025 Basophils/100 WBC (Bld) 0.5 % 0-1 [facility] Carbon dioxide, total [Moles /volume] in Central venous bloodOrdered By: Nelson Ulloa on 03-22-2025 CO2 [Moles/Vol] 23.8 mmol/L 21.0-32.0 [facility] Chloride assayOrdered By: Maranda Ulloa on 03-22-2025 Chloride [Moles/Vol] 105 mmol/L 98-108 [facility] Eosinophil percentageOrdered By: Nelson Ulloa on 03-22-2025 Eosinophils/100 WBC (Bld) 2.6 % 0-5 [facility] Erythrocyte distribution wid th ratioOrdered By: Nelson Ulloa on 03-22-2025 Erythrocyte distribution width (RBC) [Ratio] 15.2 % High 11.6-14.6 [facility] Erythrocyte distribution wid th standard deviationOrdered By: Nleson Ulloa on 03-22-2025 Erythrocyte distribution width (RBC) [Ratio] 47.3 fl High 35.1-43.9 [facility] Glomerular filtration rate ( GFR) estimation/1.73 sq m using serum, plasma, or whole bOrdered By: Nelson Ulloa on 03-22-2025 GFR/1.73 sq M.predicted among non-blacks MDRD (S/P/Bld) [Vol rate/Area] 103 mL/min/{1.73_m2} >60 [facility] Comment on above: mL/min/1.73m2 CKD-EP I Creatinine Equation (2020) Hematocrit Auto (Bld) [Volum e fraction]Ordered By: Nelson Ulloa on 03-22-2025 Hematocrit (Bld) [Volume fraction] 33.4 % Low 37-47 [facility] Hemoglobin measurementOrdere d By: Nelson Ulloa on 03-22-2025 Hemoglobin (Bld) [Mass/Vol] 11.1 g/dL Low 12.0-15.0 [facility] Immature granulocytes/100 WB C Auto (Bld)Ordered By: Nelson Ulloa on 03-22-2025 Immature granulocytes/100 WBC (Bld) 0.100 % 0.0-0.9 [facility] Comment on above: IG% - Immature Granu locytes (promyelocytes, myelocytes and metamyelocytes) > 1% indicates that a LEFT SHIFT is Present. MCV (mean corpuscular volume ) determinationOrdered By: Nelson Ulloa on 03-22-2025 MCV (RBC) [Entitic vol] 85.0 fL 81-99 [facility] Magnesium measurement (mass/ volume)Ordered By: Nelson Ulloa on 03-22-2025 Magnesium (Unsp spec) [Mass/Vol] 2.1 mg/dL 1.5-2.2 [facility] Mean corpuscular hemoglobin (MCH) determinationOrdered By: Nelson Ulloa on 03-22-2025 MCH (RBC) [Entitic mass] 28.2 pg 27.0-32.0 [facility] Mean corpuscular hemoglobin concentration (MCHC) determinationOrdered By: Nelson Ulloa on 03-22-2025 MCHC (RBC) [Mass/Vol] 33.2 g/dL 32-36 [facility] Mean platelet volume determi nationOrdered By: Nleson Ulloa on 03-22-2025 Platelet mean volume (Bld) [Entitic vol] 11.4 fL 6.2-12.0 [facility] Monocyte percentageOrdered B y: Nelson Ulloa on 03-22-2025 Monocytes/100 WBC (Bld) 6.6 % 0-10 [facility] Neutrophil percentageOrdered By: Nelson Ulloa on 03-22-2025 Neutrophils/100 WBC (Bld) 48.1 % 47-70 [facility] Nucleated red blood cell per centageOrdered By: Nelson Ulloa on 03-22-2025 Nucleated RBC/100 WBC (Bld) [Ratio] 0 % 0-5 [facility] PREGUon 03-22-2025 HCG ( test) Ql (U) Negative Normal [facility] Comment on above: Performed By: #### F E, A1C, ANEU, FT3, FT4, CMP, GFR, ADIFF, FERR, TSH, CBC #### [facility] [address], [place] [address] test (u) int Invalid Interpretation Code [facility] Comment on above: Result Comment: HCG not detected. Very dilute urine specimens, as indicated by a low specific gravity, may not contain accounts payable representative levels of hCG. If is still suspected, a first morning urine specimen should be collected 48 hours later and tested. Performed By: #### F E, A1C, ANEU, FT3, FT4, CMP, GFR, ADIFF, FERR, TSH, CBC #### [facility] [address], [place] [address] Platelet countOrdered By: Maranda Ulloa on 03-22-2025 Platelets (Bld) [#/Vol] 210 10*3/uL 150-450 [facility] Potassium measurement (mass/ volume)Ordered By: Nelson Ulloa on 03-22-2025 Potassium (Unsp spec) [Mass/Vol] 3.5 mmol/L 3.3-5.1 [facility] RBC Auto (Bld) [#/Vol]Ordere d By: Nelson Ulloa on 03-22-2025 RBC (Bld) [#/Vol] 3.93 10*6/uL Low 4.2-5.4 [facility] STREPAon 03-22-2025 Group A Strep PCR Not detected Normal Not Detected L [facility] Comment on above: Performed By: #### S TREPA #### [facility] [address], [place] [address] Group A Strep PCR Int See Interp Normal [facility] Comment on above: Result Comment: Clinical Interpretation: [...] infections. Performed By: #### S REILLY #### [facility] [address] [address] Serum beta-hCG test, qualita tiveOrdered By: Nelson Ulloa on 03-22-2025 Beta HCG ( test) Ql Negative [facility] Serum creatinine measurement (mass/volume)Ordered By: Nelson Ulloa on 03-22-2025 Creatinine [Mass/Vol] 0.79 mg/dL 0.70-1.20 [facility] Serum glucose measurement (m ass/volume)Ordered By: Nelson Ulloa on 03-22-2025 Glucose [Mass/Vol] 136 mg/dL High 70-99 [facility] Serum or plasma calcium jelani urement (mass/volume)Ordered By: Nelson Ulloa on 03-22-2025 Calcium [Mass/Vol] 9.0 mg/dL 7.6-11.0 [facility] Serum or plasma urea nitroge n measurement (mass/volume)Ordered By: Nelson Ulloa on 03-22-2025 Urea nitrogen [Mass/Vol] 9 mg/dL 4-19 [facility] Sodium levelOrdered By: Eugene Ulloa on 03-22-2025 Sodium [Moles/Vol] 139 mmol/L 133-145 [facility] UAon 03-22-2025 Color (U) Light Yellow Normal [facility] Comment on above: Performed By: #### F E, A1C, ANEU, FT3, FT4, CMP, GFR, ADIFF, FERR, TSH, CBC #### [facility] [address] [id number] Glucose (U) [Mass/Vol] Negative Normal Negative [facility] Comment on above: Performed By: #### F E, A1C, ANEU, FT3, FT4, CMP, GFR, ADIFF, FERR, TSH, CBC #### [facility] [address] [address] Ketones Ql (U) Negative Normal Neg-Trace [facility] Comment on above: Performed By: #### F E, A1C, ANEU, FT3, FT4, CMP, GFR, ADIFF, FERR, TSH, CBC #### [facility] [address] [address] UA Appear Clear Normal Clear [facility] Comment on above: Performed By: #### F E, A1C, ANEU, FT3, FT4, CMP, GFR, ADIFF, FERR, TSH, CBC #### [facility] [address] [address] UA Blood Moderate Abnormal Neg-Trace [facility] Comment on above: Performed By: #### F E, A1C, ANEU, FT3, FT4, CMP, GFR, ADIFF, FERR, TSH, CBC #### [facility] [address] [address] UA Leuk Est Trace Abnormal Negative [facility] Comment on above: Performed By: #### F E, A1C, ANEU, FT3, FT4, CMP, GFR, ADIFF, FERR, TSH, CBC #### [facility] [address] [address] UA Nitrite Negative Normal Negative [facility] Comment on above: Performed By: #### F E, A1C, ANEU, FT3, FT4, CMP, GFR, ADIFF, FERR, TSH, CBC #### [facility] [address] [address] UA pH 6.5 Normal 5.0 - 8.0 [facility] Comment on above: Performed By: #### F E, A1C, ANEU, FT3, FT4, CMP, GFR, ADIFF, FERR, TSH, CBC #### [facility] [address] [address] UA Protein Negative Normal Negative [facility] Comment on above: Performed By: #### F E, A1C, ANEU, FT3, FT4, CMP, GFR, ADIFF, FERR, TSH, CBC #### [facility] [address] [address] UA Spec Grav 1.025 Normal 1.006-1.029 [facility] Comment on above: Performed By: #### F E, A1C, ANEU, FT3, FT4, CMP, GFR, ADIFF, FERR, TSH, CBC #### [facility] [address] [place], [place] [address] UA Specimen Type Clean Catch Normal [facility] Comment on above: Performed By: #### F E, A1C, ANEU, FT3, FT4, CMP, GFR, ADIFF, FERR, TSH, CBC #### [facility] [address] [address] UA Urobilinogen 0.2 E.U./dL Normal 0.2-1.0 [facility] Comment on above: Performed By: #### F E, A1C, ANEU, FT3, FT4, CMP, GFR, ADIFF, FERR, TSH, CBC #### [facility] [address] [address] Urobilinogen (U) [Mass/Vol] Negative Normal Negative [facility] Comment on above: Performed By: #### F E, A1C, ANEU, FT3, FT4, CMP, GFR, ADIFF, FERR, TSH, CBC #### [facility] [address] [address] UAMICon 03-22-2025 UA Bacteria 1+ /hpf Abnormal Negative [facility] Comment on above: Performed By: #### F E, A1C, ANEU, FT3, FT4, CMP, GFR, ADIFF, FERR, TSH, CBC #### [facility] [address] [address] UA Hyal Cast 0-2 Abnormal [facility] Comment on above: Performed By: #### F E, A1C, ANEU, FT3, FT4, CMP, GFR, ADIFF, FERR, TSH, CBC #### [facility] [address] [address] UA Mucous 2+ /hpf Normal [facility] Comment on above: Performed By: #### F E, A1C, ANEU, FT3, FT4, CMP, GFR, ADIFF, FERR, TSH, CBC #### [facility] [address] [address] UA RBC 5-10 Abnormal 0-2 [facility] Comment on above: Performed By: #### F E, A1C, ANEU, FT3, FT4, CMP, GFR, ADIFF, FERR, TSH, CBC #### [facility] [address], [place] [address] UA Squam Epithelial 10-20 Normal 0-20 [facility] Comment on above: Performed By: #### F E, A1C, ANEU, FT3, FT4, CMP, GFR, ADIFF, FERR, TSH, CBC #### [facility] [address], [place] [address] UA WBC 25-50 Abnormal 0-5 [facility] Comment on above: Performed By: #### F E, A1C, ANEU, FT3, FT4, CMP, GFR, ADIFF, FERR, TSH, CBC #### [facility] [address], [place] [address] White blood cell (WBC) count Ordered By: Nelson Ulloa on 03-22-2025 WBC (Bld) [#/Vol] 7.4 10*3/uL 4.4-11.0 [facility] ED NOTEon 03-10-2025 ED NOTE HNO ID: [id number] Author: SERENA PARSONS RN Service: ? Author Type: Registered Nurse Type: ED Notes Filed: 03/10/2025 01:43 Note Text: Pt name called in lobby at 0055, 0130 no answer. Normal [facility] XR WRIST MINIMUM 3 VIEWS [...] Date: 02/18/2025 5:53:14 PM Ordering Provider: BERNADINE Rosario [facility] Brain/Head without Contrasto n 02-05-2025 Brain/Head without Contrast [facility] Imaging Services [address] [place] [address] Brain/Head without Contrast MR#: [id number] Acct: [id number] Name: BETSY MESA Rep #: [id number] : 1995 F 29 From: Emiliana johnson MD PCP: ARLINE CORADO Status: DEP ER Study: Brain/Head without Contrast Date of Exam: 01/27 Exam# [id number] Ordering Dr: Nelson Ulloa DO PROCEDURE: BRAIN/HEAD [...] clinical suspicion, correlate to MRI [facility] CC: Nelson Ulloa DO; ARLINE CORADO Pulverizer Feeder: Signed Normal [facility] Emergency Department Summary on 02-05-2025 Emergency Department Summary [facility] Medical Records Department [address] [place] [address] Emergency Department Summary 02/05/25 MR#: [id number] Acct: [id number] Name: BETSY MESA Rep #: [id number] : 1995 29 From: Nelson Ulloa DO [...] bleed and with this presents for evaluation [facility] Medical History Anxiety Paresthesias Cervical [...] are stab (more content not included)... Normal [facility] Absolute lymphocyte countOrd ered By: Oseas Aviles on 01-11-2025 Lymphocytes Auto (Unsp spec) [#/Vol] 2.39 10*3/uL 0.83-4.51 [facility] Absolute neutrophil countOrd ered By: Oseas Aviles on 01-11-2025 Neutrophils (Bld) [#/Vol] 3.8 10*3/uL 2.0-7.7 [facility] Anion gap in Serum or Plasma Ordered By: Oseas Aviles on 01-11-2025 Anion gap [Moles/Vol] 10 mmol/L 12-11 [facility] Automated lymphocyte count a s percentage of total leukocytesOrdered By: Oseas Aviles on 01-11-2025 Lymphocytes/100 WBC Auto (Unsp spec) 34.7 % [facility] BUN/creatinine ratioOrdered By: Oseas Aviles on 01-11-2025 Urea nitrogen/Creatinine [Mass ratio] 14.5 mg/mg 05-18 [facility] Basic Metabolic Profile (BMP )on 01-11-2025 BUN/CRE 14.5 RATIO Normal 05-18 [facility] Comment on above: Performed By: #### L 500.2500, L100.0100 ####[facility] [address] [place], [address] Calcium [Mass/Vol] 9.3 mg/dL Normal 7.6-11.0 [facility] Comment on above: Performed By: #### L 500.2500, L100.0100 ####[facility] [address] [place], [address] Chloride [Moles/Vol] 106 mmol/L Normal 98-108 [facility] Comment on above: Performed By: #### L 500.2500, L100.0100 ####[facility] [address] [place], [address] CO2 [Moles/Vol] 22.4 mmol/L Normal 21.0-32.0 [facility] Comment on above: Performed By: #### L 500.2500, L100.0100 ####[facility] [address] [place], [address] Creatinine [Mass/Vol] 0.73 mg/dL Normal 0.70-1.20 [facility] Comment on above: Performed By: #### L 500.2500, L100.0100 ####[facility] [address] [place], [address] ECRCL 149.34 ml/min Normal 50-250 [facility] Comment on above: Performed By: #### L 500.2500, L100.0100 ####[facility] [address] [place], [address] GAP 10 Normal 5-15 [facility] Comment on above: Performed By: #### L 500.2500, L100.0100 ####[facility] [address] [place], [address] GFR/1.73 sq M.predicted among non-blacks MDRD (S/P/Bld) [Vol rate/Area] 114 mL/min/{1.73_m2} Normal >60 [facility] Comment on above: Result Comment: mL/m in/1.73m2 CKD-EPI Creatinine Equation (2020) Performed By: #### L 500.2500, L100.0100 ####[facility] [address] [place], [address] Glucose [Mass/Vol] 133 mg/dL High 70-99 [facility] Comment on above: Performed By: #### L 500.2500, L100.0100 ####[facility] [address] [place], [address] Potassium [Moles/Vol] 3.9 mmol/L Normal 3.3-5.1 [facility] Comment on above: Performed By: #### L 500.2500, L100.0100 ####[facility] [address] [place], [address] Sodium [Moles/Vol] 138 mmol/L Normal 133-145 [facility] Comment on above: Performed By: #### L 500.2500, L100.0100 ####[facility] [address] [place], [address] Urea nitrogen [Mass/Vol] 11 mg/dL Normal 4-19 [facility] Comment on above: Performed By: #### L 500.2500, L100.0100 ####[facility] [address] [place], [address] Basophil percentageOrdered B y: Oseas Aviles on 01-11-2025 Basophils/100 WBC (Bld) 0.4 % 0-1 [facility] Brain/Head without Contrasto n 01-11-2025 Brain/Head without Contrast [facility] Imaging Services [address] [place] [address] Brain/Head without Contrast MR#: [id number] Acct: [id number] Name: BETSY MESA Rep #: [id number] : 1995 F 29 From: Laurita Talley PCP: Care Physician,No Primary Status: REG ER Study: Brain/Head without Contrast Date of Exam: 12/28 12/21 Exam# [id number] Ordering Dr: Oseas Aviles MD PROCEDURE: BRAIN/HEAD [...] IMPRESSION: No acute intracranial process. Reading Location: [facility] CC: Dr. Oseas Aviles MD; No Primary Care Physician Pulverizer Feeder: Signed Normal [facility] CBC W/Diff, Automatedon 12-28 Absolute Lymph 2.39 X10 3/uL Normal 0.83-4.51 [facility] Comment on above: Performed By: #### L 500.2500, L100.0100 ####[facility] [address] [place], [address] Absolute Neut 3.8 X10 3/uL Normal 2.0-7.7 [facility] Comment on above: Performed By: #### L 500.2500, L100.0100 ####[facility] [address] [place], [address] Basophils/100 WBC (Bld) 0.4 % Normal 0-1 [facility] Comment on above: Performed By: #### L 500.2500, L100.0100 ####[facility] [address] [place], [address] Eosinophils/100 WBC (Bld) 2.6 % Normal 0-5 [facility] Comment on above: Performed By: #### L 500.2500, L100.0100 ####[facility] [address] [place], [address] Erythrocyte distribution width (RBC) [Ratio] 14.7 % High 11.6-14.6 [facility] Comment on above: Performed By: #### L 500.2500, L100.0100 ####[facility] [address] [place], [address] Hematocrit (Bld) [Volume fraction] 34.5 % Low 37-47 [facility] Comment on above: Performed By: #### L 500.2500, L100.0100 ####[facility] [address] [place], [address] Hemoglobin (Bld) [Mass/Vol] 11.1 g/dL Low 12.0-15.0 [facility] Comment on above: Performed By: #### L 500.2500, L100.0100 ####[facility] [address] [place], [address] IG% 0.300 Normal 0.0-0.9 [facility] Comment on above: Result Comment: IG% - Immature Granulocytes (promyelocytes, myelocytes and metamyelocytes) > 1% indicates that a LEFT SHIFT is Present. Performed By: #### L 500.2500, L100.0100 ####[facility] [address] [place], [address] Lymphocytes/100 WBC (Bld) 34.7 % Normal 19-41 [facility] Comment on above: Performed By: #### L 500.2500, L100.0100 ####[facility] [address] [place], [address] MCH (RBC) [Entitic mass] 27.5 pg Normal 27.0-32.0 [facility] Comment on above: Performed By: #### L 500.2500, L100.0100 ####[facility] [address] [place], [address] MCHC (RBC) [Mass/Vol] 32.2 g/dL Normal 32-36 [facility] Comment on above: Performed By: #### L 500.2500, L100.0100 ####[facility] [address] [place], [address] MCV (RBC) [Entitic vol] 85.6 fL Normal 81-99 [facility] Comment on above: Performed By: #### L 500.2500, L100.0100 ####[facility] [address] [place], [address] Monocytes/100 WBC (Bld) 7.3 % Normal 0-10 [facility] Comment on above: Performed By: #### L 500.2500, L100.0100 ####[facility] [address] [place], [address] Neutrophils/100 WBC (Bld) 54.7 % Normal 47-70 [facility] Comment on above: Performed By: #### L 500.2500, L100.0100 ####[facility] [address] [place], [address] Nucleated RBC (Bld) [#/Vol] 0 10*3/uL Normal 0-5 [facility] Comment on above: Performed By: #### L 500.2500, L100.0100 ####[facility] [address] [place], [address] Platelet mean volume (Bld) [Entitic vol] 10.6 fL Normal 6.2-12.0 [facility] Comment on above: Performed By: #### L 500.2500, L100.0100 ####[facility] [address] [place], [address] Platelets (Bld) [#/Vol] 208 10*3/uL Normal 150-450 [facility] Comment on above: Performed By: #### L 500.2500, L100.0100 ####[facility] [address] [place], [address] RBC (Bld) [#/Vol] 4.03 10*6/uL Low 4.2-5.4 [facility] Comment on above: Performed By: #### L 500.2500, L100.0100 ####[facility] [address] [place], [address] RDW SD 45.6 fl High 35.1-43.9 [facility] Comment on above: Performed By: #### L 500.2500, L100.0100 ####[facility] [address] [place], [address] WBC (Bld) [#/Vol] 6.9 10*3/uL Normal 4.4-11.0 [facility] Comment on above: Performed By: #### L 500.2500, L100.0100 ####[facility] [address] [place], [address] Carbon dioxide, total [Moles /volume] in Central venous bloodOrdered By: Oseas Aviles on 01-11-2025 CO2 [Moles/Vol] 22.4 mmol/L 21.0-32.0 [facility] Chloride assayOrdered By: Nnamdi Aviles on 01-11-2025 Chloride [Moles/Vol] 106 mmol/L 98-108 [facility] Emergency Department Summary on 01-11-2025 Emergency Department Summary [facility] Medical Records Department [address] [place] [address] Emergency Department Summary 01/11/25 MR#: [id number] Acct: [id number] Name: BETSY MESA Rep #: [id number] : 1995 29 From: Oseas Aviles MD [...] past with a negative workup done at [facility] 1 to 2 years ago. She denies any nausea, vomiting or diarrhea. No dysuria. No fever. She is on no blood thinners. Prior similar symptoms: Yes Recent Illness/Hospitalizatio n: No [facility] Medical History Anxiety Paresthesias Cervical [...] normal. NIH 0. No facial droop. 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 Fingertip to nose [id number] within normal limits. No drift. Const Vital [...] no scl (more content not included)... Normal [facility] Eosinophil percentageOrdered By: Oseas Aviles on 01-11-2025 Eosinophils/100 WBC (Bld) 2.6 % 0-5 [facility] Erythrocyte distribution wid th ratioOrdered By: Oseas Aviles on 01-11-2025 Erythrocyte distribution width (RBC) [Ratio] 14.7 % High 11.6-14.6 [facility] Erythrocyte distribution wid th standard deviationOrdered By: Oseas Aviles on 01-11-2025 Erythrocyte distribution width (RBC) [Ratio] 45.6 fl High 35.1-43.9 [facility] Glomerular filtration rate ( GFR) estimation/1.73 sq m using serum, plasma, or whole bOrdered By: Oseas Aviles on 01-11-2025 GFR/1.73 sq M.predicted among non-blacks MDRD (S/P/Bld) [Vol rate/Area] 114 mL/min/{1.73_m2} >60 [facility] Comment on above: mL/min/1.73m2 CKD-EP I Creatinine Equation (2020) Hematocrit Auto (Bld) [Volum e fraction]Ordered By: Oseas Aviles on 01-11-2025 Hematocrit (Bld) [Volume fraction] 34.5 % Low 37-47 [facility] Hemoglobin measurementOrdere d By: Oseas Aviles on 01-11-2025 Hemoglobin (Bld) [Mass/Vol] 11.1 g/dL Low 12.0-15.0 [facility] Immature granulocytes/100 WB C Auto (Bld)Ordered By: Oseas Aviles on 01-11-2025 Immature granulocytes/100 WBC (Bld) 0.300 % 0.0-0.9 [facility] Comment on above: IG% - Immature Granu locytes (promyelocytes, myelocytes and metamyelocytes) > 1% indicates that a LEFT SHIFT is Present. MCV (mean corpuscular volume ) determinationOrdered By: Oseas Aviles on 01-11-2025 MCV (RBC) [Entitic vol] 85.6 fL 81-99 [facility] Mean corpuscular hemoglobin (MCH) determinationOrdered By: Oseas Aviles on 01-11-2025 MCH (RBC) [Entitic mass] 27.5 pg 27.0-32.0 [facility] Mean corpuscular hemoglobin concentration (MCHC) determinationOrdered By: Oseas Aviles on 01-11-2025 MCHC (RBC) [Mass/Vol] 32.2 g/dL 32-36 [facility] Mean platelet volume determi nationOrdered By: Oseas Aviles on 01-11-2025 Platelet mean volume (Bld) [Entitic vol] 10.6 fL 6.2-12.0 [facility] Monocyte percentageOrdered B y: Oseas Aviles on 01-11-2025 Monocytes/100 WBC (Bld) 7.3 % 0-10 [facility] Neutrophil percentageOrdered By: Oseas Aviles on 01-11-2025 Neutrophils/100 WBC (Bld) 54.7 % 47-70 [facility] Nucleated red blood cell per centageOrdered By: Oseas Aviles on 01-11-2025 Nucleated RBC/100 WBC (Bld) [Ratio] 0 % 0-5 [facility] Platelet countOrdered By: Nnamdi Aviles on 01-11-2025 Platelets (Bld) [#/Vol] 208 10*3/uL 150-450 [facility] Potassium measurement (mass/ volume)Ordered By: Oseas Aviles on 01-11-2025 Potassium (Unsp spec) [Mass/Vol] 3.9 mmol/L 3.3-5.1 [facility] RBC Auto (Bld) [#/Vol]Ordere d By: Oseas Aviles on 01-11-2025 RBC (Bld) [#/Vol] 4.03 10*6/uL Low 4.2-5.4 [facility] Serum creatinine measurement (mass/volume)Ordered By: Oseas Aviles on 01-11-2025 Creatinine [Mass/Vol] 0.73 mg/dL 0.70-1.20 [facility] Serum glucose measurement (m ass/volume)Ordered By: Oseas Aviles on 01-11-2025 Glucose [Mass/Vol] 133 mg/dL High 70-99 [facility] Serum or plasma calcium jelani urement (mass/volume)Ordered By: Oseas Aviles on 01-11-2025 Calcium [Mass/Vol] 9.3 mg/dL 7.6-11.0 [facility] Serum or plasma urea nitroge n measurement (mass/volume)Ordered By: Oseas Aviles on 01-11-2025 Urea nitrogen [Mass/Vol] 11 mg/dL 4-19 [facility] Sodium levelOrdered By: Oseas Aviles on 01-11-2025 Sodium [Moles/Vol] 138 mmol/L 133-145 [facility] White blood cell (WBC) count Ordered By: Oseas Aviles on 01-11-2025 WBC (Bld) [#/Vol] 6.9 10*3/uL 4.4-11.0 [facility] A1Con 08-23-2024 Glucose [Mass/Vol] 134 mg/dL High <=114 [facility] Comment on above: Result Comment: Sarah mated Average Glucose calculated by equation ((28.7xA1C)-46.7) Estimated average glucose (eAG) is a calculated value from Hemoglobin A1C and is accounts payable representative of the average blood glucose level in the last 2-3 month period. Normal range: less than 114 mg/dL Performed By: #### F E, A1C, ANEU, FT3, FT4, CMP, GFR, ADIFF, FERR, TSH, CBC #### [facility] [address], [place] [address] HbA1c (Bld) [Mass fraction] 6.3 % Normal [facility] Comment on above: Result Comment: Inte [...] CMP, GFR, ADIFF, FERR, TSH, CBC #### [facility] [address] [address] .Auto Diffon 08-22-2024 Basophil, Absolute 0.0 10 3/mcL Normal 0.0-0.3 [facility] Comment on above: Performed By: #### F E, A1C, ANEU, FT3, FT4, CMP, GFR, ADIFF, FERR, TSH, CBC #### [facility] [address] [address] Basophils/100 WBC (Bld) 0.5 % Normal 0.0-2.5 [facility] Comment on above: Performed By: #### F E, A1C, ANEU, FT3, FT4, CMP, GFR, ADIFF, FERR, TSH, CBC #### [facility] [address] [address] Eosinophil, Absolute 0.1 10 3/mcL Normal 0.0-0.7 [facility] Comment on above: Performed By: #### F E, A1C, ANEU, FT3, FT4, CMP, GFR, ADIFF, FERR, TSH, CBC #### [facility] [address], [place] [address] Eosinophils/100 WBC (Bld) 2.2 % Normal 0.0-6.0 [facility] Comment on above: Performed By: #### F E, A1C, ANEU, FT3, FT4, CMP, GFR, ADIFF, FERR, TSH, CBC #### [facility] [address] [address] Lymphocyte, Absolute 2.3 10 3/mcL Normal 0.9-4.3 [facility] Comment on above: Performed By: #### F E, A1C, ANEU, FT3, FT4, CMP, GFR, ADIFF, FERR, TSH, CBC #### [facility] [address] [place], [place] [address] Lymphocytes/100 WBC (Bld) 40.9 % High 20.0-40.0 [facility] Comment on above: Performed By: #### F E, A1C, ANEU, FT3, FT4, CMP, GFR, ADIFF, FERR, TSH, CBC #### [facility] [address], [place] [address] Monocyte, Absolute 0.4 10 3/mcL Normal 0.1-1.4 [facility] Comment on above: Performed By: #### F E, A1C, ANEU, FT3, FT4, CMP, GFR, ADIFF, FERR, TSH, CBC #### [facility] [address], [place] [address] Monocytes/100 WBC (Bld) 7.2 % Normal 2.0-13.0 [facility] Comment on above: Performed By: #### F E, A1C, ANEU, FT3, FT4, CMP, GFR, ADIFF, FERR, TSH, CBC #### [facility] [address], [place] [address] Neutrophils/100 WBC (Bld) 49.2 % Low 50.0-75.0 [facility] Comment on above: Performed By: #### F E, A1C, ANEU, FT3, FT4, CMP, GFR, ADIFF, FERR, TSH, CBC #### [facility] [address], [place] [address] .GFRon 08-22-2024 GFR Non- 87 ml/min/1.73sqm Normal [facility] Comment on above: Result Comment: GFR [...] CMP, GFR, ADIFF, FERR, TSH, CBC #### [facility] [address], [place] [address] GFR 106 ml/min/1.73sqm Normal [facility] Comment on above: Result Comment: GFR [...] CMP, GFR, ADIFF, FERR, TSH, CBC #### [facility] [address] [address] .NEUABSon 08-22-2024 Neutrophil, Absolute 2.7 10 3/mcL Normal 2.3-8.1 [facility] Comment on above: Performed By: #### F E, A1C, ANEU, FT3, FT4, CMP, GFR, ADIFF, FERR, TSH, CBC #### [facility] [address] [address] CBCon 08-22-2024 Erythrocyte distribution width (RBC) [Ratio] 17.9 % High 11.5-15.5 [facility] Comment on above: Performed By: #### F E, A1C, ANEU, FT3, FT4, CMP, GFR, ADIFF, FERR, TSH, CBC #### [facility] [address] [address] Hematocrit (Bld) [Volume fraction] 34.1 % Normal 34.0-46.0 [facility] Comment on above: Performed By: #### F E, A1C, ANEU, FT3, FT4, CMP, GFR, ADIFF, FERR, TSH, CBC #### [facility] [address] [address] Hgb 10.7 G/dL Low 12.0-16.0 [facility] Comment on above: Performed By: #### F E, A1C, ANEU, FT3, FT4, CMP, GFR, ADIFF, FERR, TSH, CBC #### [facility] [address] [address] MCH (RBC) [Entitic mass] 25.3 pg Low 27.0-33.0 [facility] Comment on above: Performed By: #### F E, A1C, ANEU, FT3, FT4, CMP, GFR, ADIFF, FERR, TSH, CBC #### [facility] [address] [address] MCHC 31.4 G/dL Low 32.0-36.0 [facility] Comment on above: Performed By: #### F E, A1C, ANEU, FT3, FT4, CMP, GFR, ADIFF, FERR, TSH, CBC #### [facility] [address] [address] MCV (RBC) [Entitic vol] 80.4 fL Normal 80.0-99.0 [facility] Comment on above: Performed By: #### F E, A1C, ANEU, FT3, FT4, CMP, GFR, ADIFF, FERR, TSH, CBC #### [facility] [address] [address] Platelet 215 10 3/mcL Normal 150-450 [facility] Comment on above: Performed By: #### F E, A1C, ANEU, FT3, FT4, CMP, GFR, ADIFF, FERR, TSH, CBC #### [facility] [address] [address] Platelet mean volume (Bld) [Entitic vol] 8.8 fL Normal 6.6-10.5 [facility] Comment on above: Performed By: #### F E, A1C, ANEU, FT3, FT4, CMP, GFR, ADIFF, FERR, TSH, CBC #### [facility] [address] [address] RBC 4.24 10 6/mcL Normal 4.10-5.30 [facility] Comment on above: Performed By: #### F E, A1C, ANEU, FT3, FT4, CMP, GFR, ADIFF, FERR, TSH, CBC #### [facility] [address] [address] WBC 5.6 10 3/mcL Normal 4.5-10.8 [facility] Comment on above: Performed By: #### F E, A1C, ANEU, FT3, FT4, CMP, GFR, ADIFF, FERR, TSH, CBC #### [facility] [address] [address] CMPon 08-22-2024 Albumin Level 3.8 G/dL Normal 3.4-5.0 [facility] Comment on above: Performed By: #### F E, A1C, ANEU, FT3, FT4, CMP, GFR, ADIFF, FERR, TSH, CBC #### [facility] [address] [address] Albumin/Globulin [Mass ratio] 1.0 {ratio} Low 1.1-1.8 [facility] Comment on above: Performed By: #### F E, A1C, ANEU, FT3, FT4, CMP, GFR, ADIFF, FERR, TSH, CBC #### [facility] [address] [address] ALP [Catalytic activity/Vol] 76 U/L Normal 45-117 [facility] Comment on above: Performed By: #### F E, A1C, ANEU, FT3, FT4, CMP, GFR, ADIFF, FERR, TSH, CBC #### [facility] [address] [address] ALT [Catalytic activity/Vol] 28 U/L Normal 12-78 [facility] Comment on above: Performed By: #### F E, A1C, ANEU, FT3, FT4, CMP, GFR, ADIFF, FERR, TSH, CBC #### [facility] [address], [place] [address] AST [Catalytic activity/Vol] 17 U/L Normal 15-37 [facility] Comment on above: Performed By: #### F E, A1C, ANEU, FT3, FT4, CMP, GFR, ADIFF, FERR, TSH, CBC #### [facility] [address] [id number] Bili Total 0.4 mg/dL Normal 0.2-1.0 [facility] Comment on above: Result Comment: Use of this assay is not recommended for patients undergoing treatment with eltrombopag due to the potential for falsely elevated results. Performed By: #### F E, A1C, ANEU, FT3, FT4, CMP, GFR, ADIFF, FERR, TSH, CBC #### [facility] [address] [address] BUN/Creatinine Ratio 9.0 ratio Low 10.0-22.0 [facility] Comment on above: Performed By: #### F E, A1C, ANEU, FT3, FT4, CMP, GFR, ADIFF, FERR, TSH, CBC #### [facility] [address] [address] Calcium [Mass/Vol] 8.6 mg/dL Normal 8.5-10.1 [facility] Comment on above: Performed By: #### F E, A1C, ANEU, FT3, FT4, CMP, GFR, ADIFF, FERR, TSH, CBC #### [facility] [address] [id number] Chloride [Moles/Vol] 106 mmol/L Normal 98-107 [facility] Comment on above: Performed By: #### F E, A1C, ANEU, FT3, FT4, CMP, GFR, ADIFF, FERR, TSH, CBC #### [facility] [address] [address] CO2 [Moles/Vol] 26 mmol/L Normal 21-32 [facility] Comment on above: Performed By: #### F E, A1C, ANEU, FT3, FT4, CMP, GFR, ADIFF, FERR, TSH, CBC #### [facility] [address], [place] [address] Creatinine [Mass/Vol] 0.78 mg/dL Normal 0.55-1.02 [facility] Comment on above: Result Comment: Test ing performed on Siemens Dimension [place] analyzer using a modified kinetic Patricio technique. Performed By: #### F E, A1C, ANEU, FT3, FT4, CMP, GFR, ADIFF, FERR, TSH, CBC #### [facility] [address] [id number] Electrolyte Balance 4.0 mEq/L Normal 4.0-15.0 [facility] Comment on above: Performed By: #### F E, A1C, ANEU, FT3, FT4, CMP, GFR, ADIFF, FERR, TSH, CBC #### [facility] [address] [address] Globulin 3.7 G/dL Normal 2.5-4.6 [facility] Comment on above: Performed By: #### F E, A1C, ANEU, FT3, FT4, CMP, GFR, ADIFF, FERR, TSH, CBC #### [facility] [address] [address] Glucose [Mass/Vol] 109 mg/dL High 70-100 [facility] Comment on above: Performed By: #### F E, A1C, ANEU, FT3, FT4, CMP, GFR, ADIFF, FERR, TSH, CBC #### [facility] [address], [place] [address] Potassium [Moles/Vol] 4.0 mmol/L Normal 3.5-5.1 [facility] Comment on above: Performed By: #### F E, A1C, ANEU, FT3, FT4, CMP, GFR, ADIFF, FERR, TSH, CBC #### [facility] [address] [id number] Sodium [Moles/Vol] 136 mmol/L Normal 136-145 [facility] Comment on above: Performed By: #### F E, A1C, ANEU, FT3, FT4, CMP, GFR, ADIFF, FERR, TSH, CBC #### [facility] [address], [place] [address] Total Protein 7.5 G/dL Normal 6.0-8.3 [facility] Comment on above: Performed By: #### F E, A1C, ANEU, FT3, FT4, CMP, GFR, ADIFF, FERR, TSH, CBC #### [facility] [address], [place] [address] Urea nitrogen [Mass/Vol] 7.0 mg/dL Normal 7.0-18.0 [facility] Comment on above: Performed By: #### F E, A1C, ANEU, FT3, FT4, CMP, GFR, ADIFF, FERR, TSH, CBC #### [facility] [address], [place] [address] FEon 08-22-2024 Iron [Mass/Vol] 38 ug/dL Low 50-170 [facility] Comment on above: Performed By: #### F E, A1C, ANEU, FT3, FT4, CMP, GFR, ADIFF, FERR, TSH, CBC #### [facility] [address] [address] Michael 08-22-2024 Ferritin 3.8 [id number] Low 8.0-252.0 [facility] Comment on above: Performed By: #### F E, A1C, ANEU, FT3, FT4, CMP, GFR, ADIFF, FERR, TSH, CBC #### [facility] [address] [address] FT3on 08-22-2024 Free T3 [Mass/Vol] 2.66 pg/mL Normal 2.18-3.98 [facility] Comment on above: Performed By: #### F E, A1C, ANEU, FT3, FT4, CMP, GFR, ADIFF, FERR, TSH, CBC #### [facility] [address], [place] [address] FT4on 08-22-2024 Free T4 [Mass/Vol] 0.99 ng/dL Normal 0.76-1.46 [facility] Comment on above: Performed By: #### F E, A1C, ANEU, FT3, FT4, CMP, GFR, ADIFF, FERR, TSH, CBC #### [facility] [address], [place] [address] TSHon 08-22-2024 TSH 0.583 mIU/mL Normal 0.358-3.740 [facility] Comment on above: Performed By: #### F E, A1C, ANEU, FT3, FT4, CMP, GFR, ADIFF, FERR, TSH, CBC #### [facility] [address], [place] [address] ALLIED HEALTHon 08-11-2024 [facility] HNO ID: [id number] Author: TIFFANY GRIMES RT(R) Service: Radiology Author Type: Technologist Type: [facility] Filed: 08/11/2024 03:38 Note Text: Summary: [...] PATIENT PRESENTS WITH AN IMPLANTABLE OR ATTACHED ARC AND GAS WELDER: No ALLERGIES: Reviewed and unchanged CONTRAST ALLERGY: [...] August 11, 2024 TIME: 3:37 AM Normal [facility] CBC W Auto Differential pane l (Bld)on 08-11-2024 Basophils (Bld) [#/Vol] 0.03 10*3/uL Normal <0.11 [facility] Comment on above: Order Comment: Speci men Type: BLOOD SPECIMEN Ordering Facility: [facility] Address: [address] [place] [address] Performed By: #### 5 7021-8 #### [facility] CLIA [id number] [address] [place] [address] [place] Basophils/100 WBC (Bld) 0.5 % Normal [facility] Comment on above: Order Comment: Speci men Type: BLOOD SPECIMEN Ordering Facility: [facility] Address: [facility] [place] [address] Performed By: #### 5 7021-8 #### [facility] CLIA [id number] [address] [place] [address] [place] Differential cell count method Nom (Bld) Auto Normal [facility] Comment on above: Order Comment: Speci men Type: BLOOD SPECIMEN Ordering Facility: [facility] Address: [address] [place] [address] Performed By: #### 5 7021-8 #### [facility] CLIA [id number] [address] [place] [address] [place] Eosinophils (Bld) [#/Vol] 0.14 10*3/uL Normal <0.46 [facility] Comment on above: Order Comment: Speci men Type: BLOOD SPECIMEN Ordering Facility: [facility] Address: [address] [place] [address] Performed By: #### 5 7021-8 #### [facility] CLIA [id number] [address] [place] [address] [place] Eosinophils/100 WBC (Bld) 2.2 % Normal [facility] Comment on above: Order Comment: Speci men Type: BLOOD SPECIMEN Ordering Facility: [facility] Address: [address] [place] [address] Performed By: #### 5 7021-8 #### [facility] CLIA [id number] [address] [place] [address] [place] Erythrocyte distribution width (RBC) [Ratio] 15.6 % High 11.5-15.0 [facility] Comment on above: Order Comment: Speci men Type: BLOOD SPECIMEN Ordering Facility: [facility] Address: [address] [place] [address] Performed By: #### 5 7021-8 #### [facility] CLIA [id number] [address] [place] [address] [place] Hematocrit (Bld) [Volume fraction] 32.8 % Low 36.0-46.0 [facility] Comment on above: Order Comment: Speci men Type: BLOOD SPECIMEN Ordering Facility: [facility] Address: [address] [place] [address] Performed By: #### 5 7021-8 #### [facility] CLIA [id number] [address] [place] [address] [place] Hemoglobin (Bld) [Mass/Vol] 10.3 g/dL Low 11.5-15.5 [facility] Comment on above: Order Comment: Speci men Type: BLOOD SPECIMEN Ordering Facility: [facility] Address: [address] [place] [address] Performed By: #### 5 7021-8 #### [facility] CLIA [id number] [address] [place] [address] [place] Immature granulocytes (Bld) [#/Vol] 10*3/uL Normal <0.10 [facility] Comment on above: Order Comment: Speci men Type: BLOOD SPECIMEN Ordering Facility: [facility] Address: [address] [place] [address] Performed By: #### 5 7021-8 #### [facility] CLIA [id number] [address] [place] [address] [place] Immature granulocytes/100 WBC (Bld) 0.3 % Normal [facility] Comment on above: Order Comment: Speci men Type: BLOOD SPECIMEN Ordering Facility: [facility] Address: [address] [place] [address] Performed By: #### 5 7021-8 #### [facility] CLIA [id number] [address] [place] [address] [place] Lymphocytes (Bld) [#/Vol] 2.36 10*3/uL Normal 1.00-4.00 [facility] Comment on above: Order Comment: Speci men Type: BLOOD SPECIMEN Ordering Facility: [facility] Address: [address] [place] [address] Performed By: #### 5 7021-8 #### [facility] CLIA [id number] [address] [place] [address] STATES [facility] Lymphocytes/100 WBC (Bld) 36.6 % Normal [facility] Comment on above: Order Comment: Speci men Type: BLOOD SPECIMEN Ordering Facility: [facility] Address: [address] [place] [address] Performed By: #### 5 7021-8 #### [facility] CLIA [id number] [address] [place] [address] [place] MCH (RBC) [Entitic mass] 25.6 pg Low 26.0-34.0 [facility] Comment on above: Order Comment: Speci men Type: BLOOD SPECIMEN Ordering Facility: [facility] Address: [address] [place] [address] Performed By: #### 5 7021-8 #### [facility] CLIA [id number] [address] [place] [address] [place] MCHC (RBC) [Mass/Vol] 31.4 g/dL Normal 30.5-36.0 [facility] Comment on above: Order Comment: Speci men Type: BLOOD SPECIMEN Ordering Facility: [facility] Address: [address] [place] [address] Performed By: #### 5 7021-8 #### [facility] CLIA [id number] [address] [place] [address] [place] MCV (RBC) [Entitic vol] 81.4 fL Normal 80.0-100.0 [facility] Comment on above: Order Comment: Speci men Type: BLOOD SPECIMEN Ordering Facility: [facility] Address: [address] [place] [address] Performed By: #### 5 7021-8 #### [facility] CLIA [id number] [address] [place] [address] [place] Monocytes (Bld) [#/Vol] 0.46 10*3/uL Normal <0.87 [facility] Comment on above: Order Comment: Speci men Type: BLOOD SPECIMEN Ordering Facility: [facility] Address: [address] [id number] Performed By: #### 5 7021-8 #### [facility] CLIA [id number] [address] [place] [address] [place] Monocytes/100 WBC (Bld) 7.1 % Normal [facility] Comment on above: Order Comment: Speci men Type: BLOOD SPECIMEN Ordering Facility: [facility] Address: [address] [id number] Performed By: #### 5 7021-8 #### [facility] CLIA [id number] [address] [place] [address] [place] Neutrophils (Bld) [#/Vol] 3.44 10*3/uL Normal 1.45-7.50 [facility] Comment on above: Order Comment: Speci men Type: BLOOD SPECIMEN Ordering Facility: [facility] Address: [address] [place] [address] Performed By: #### 5 7021-8 #### [facility] CLIA [id number] [address] [place] [address] [place] Neutrophils/100 WBC (Bld) 53.3 % Normal [facility] Comment on above: Order Comment: Speci men Type: BLOOD SPECIMEN Ordering Facility: [facility] Address: [address] [place] [address] Performed By: #### 5 7021-8 #### [facility] CLIA [id number] [address] [place] [address] [place] Nucleated RBC (Bld) [#/Vol] 10*3/uL Normal <0.01 [facility] Comment on above: Order Comment: Speci men Type: BLOOD SPECIMEN Ordering Facility: [facility] Address: [address] [place] [address] Performed By: #### 5 7021-8 #### [facility] CLIA [id number] [address] [place] [address] [place] Nucleated RBC/100 WBC (Bld) [Ratio] 0.0 /100 WBC Normal [facility] Comment on above: Order Comment: Speci men Type: BLOOD SPECIMEN Ordering Facility: [facility] Address: [address] [place] [address] Performed By: #### 5 7021-8 #### [facility] CLIA [id number] [address] [place] [address] [place] Platelet mean volume (Bld) [Entitic vol] 10.8 fL Normal 9.0-12.7 [facility] Comment on above: Order Comment: Speci men Type: BLOOD SPECIMEN Ordering Facility: [facility] Address: [address] [place] [address] Performed By: #### 5 7021-8 #### [facility] CLIA [id number] [address] [place] [address] [place] Platelets (Bld) [#/Vol] 220 10*3/uL Normal 150-400 [facility] Comment on above: Order Comment: Speci men Type: BLOOD SPECIMEN Ordering Facility: [facility] Address: [address] [place] [address] Performed By: #### 5 7021-8 #### [facility] CLIA [id number] [address] [place] [address] [place] RBC (Bld) [#/Vol] 4.03 10*6/uL Normal 3.90-5.20 [facility] Comment on above: Order Comment: Speci men Type: BLOOD SPECIMEN Ordering Facility: [facility] Address: [address] [place] [address] Performed By: #### 5 7021-8 #### [facility] CLIA [id number] [address] [place] [address] [place] WBC (Bld) [#/Vol] 6.45 10*3/uL Normal 3.70-11.00 [facility] Comment on above: Order Comment: Speci men Type: BLOOD SPECIMEN Ordering Facility: [facility] Address: [address], [place] [address] Performed By: #### 5 7021-8 #### [facility] CLIA [id number] [address] [place] [address] [place] CT ABD/PEL W IVCONon 025 CT ABD/PEL W IVCON * * *Final Report* * * DATE OF EXAM: Aug 11 2024 3:50AM [facility] 0530 - CT ABD/PEL W IVCON / [...] pulmonary embolism. 2. No acute abdominal abnormality Pulverizer Feeder: [facility] Transcribe Date/Time: Aug 11 2024 3:59A Dictated by : MARCELO LAI MD This examination was interpreted and the report reviewed and electronically signed by: MARCELO LAI MD on Aug 11 2024 4:12AM EST [id number] Normal [facility] CTA CHEST (NON GATED) W IVCO N PEon 08-11-2024 CTA CHEST (NON GATED) W IVCON PE * * *Final Report* * * DATE OF EXAM: Aug 11 2024 3:50AM [facility] 0564 - CTA CHEST (NON GATED) W [...] pulmonary embolism. 2. No acute abdominal abnormality [facility] Transcribe Date/Time: Aug 11 2024 3:59A Dictated by : MARCELO LAI MD This examination was interpreted and the report reviewed and electronically signed by: MARCELO LAI MD on Aug 11 2024 4:12AM EST [id number] Normal [facility] Comprehensive metabolic 2000 panelon 08-11-2024 Albumin [Mass/Vol] 3.6 g/dL Normal 3.2-5.0 [facility] Comment on above: Order Comment: Jessica rojo Type: BLOOD SPECIMEN Ordering Facility: [facility] Address: [address] [place] [address] Performed By: #### 2 4323-8, 3040-3, HSTROP #### [facility] CLIA [id number] [address] [place] [address] [place] ALP [Catalytic activity/Vol] 83 U/L Normal 45-117 [facility] Comment on above: Order Comment: Speci men Type: BLOOD SPECIMEN Ordering Facility: [facility] Address: [address] [place] [address] Performed By: #### 2 4323-8, 3040-3, HSTROP #### [facility] CLIA [id number] [address] [place], [place] [id number] [place] ALT [Catalytic activity/Vol] 21 U/L Normal 13-61 [facility] Comment on above: Order Comment: Speci men Type: BLOOD SPECIMEN Ordering Facility: [facility] Address: [address] [place] [address] Result Comment: Resu lts may be falsely depressed after the administration of Sulfasalazine and/or Sulfapyridine. Performed By: #### 2 4323-8, 0-3, HSTROP #### [facility] CLIA [id number] [address] [place], [place] [id number] [place] Anion gap [Moles/Vol] 5 mmol/L Normal 5-16 [facility] Comment on above: Order Comment: Speci men Type: BLOOD SPECIMEN Ordering Facility: [facility] Address: [address] [place] [address] Performed By: #### 2 4323-8, 0-3, HSTROP #### [facility] CLIA [id number] [address] [place], [place] [id number] [place] AST [Catalytic activity/Vol] 19 U/L Normal 8-34 [facility] Comment on above: Order Comment: Speci men Type: BLOOD SPECIMEN Ordering Facility: [facility] Address: [address] [place] [address] Result Comment: Resu lts may be falsely depressed after the administration of Sulfasalazine and/or Sulfapyridine. Performed By: #### 2 4323-8, 3040-3, HSTROP #### [facility] CLIA [id number] [address] [place], [place] [id number] [place] Bilirubin [Mass/Vol] 0.2 mg/dL Normal 0.2-1.0 [facility] Comment on above: Order Comment: Speci men Type: BLOOD SPECIMEN Ordering Facility: [facility] Address: [address] [place] [address] Performed By: #### 2 4323-8, 3040-3, HSTROP #### [facility] CLIA [id number] [address] [place], [place] [address] [place] Calcium [Mass/Vol] 9.4 mg/dL Normal 8.5-10.5 [facility] Comment on above: Order Comment: Speci men Type: BLOOD SPECIMEN Ordering Facility: [facility] Address: [address] [place] [address] Performed By: #### 2 4323-8, 3040-3, HSTROP #### [facility] CLIA [id number] [address] [place], [place] [address] [place] Chloride [Moles/Vol] 106 mmol/L Normal 98-107 [facility] Comment on above: Order Comment: Speci men Type: BLOOD SPECIMEN Ordering Facility: [facility] Address: [address] [place] [address] Performed By: #### 2 4323-8, 3040-3, HSTROP #### [facility] CLIA [id number] [address] [place], [place] [address] [place] CO2 [Moles/Vol] 25 mmol/L Normal 21-32 [facility] Comment on above: Order Comment: Speci men Type: BLOOD SPECIMEN Ordering Facility: [facility] Address: [address] [place] [address] Performed By: #### 2 4323-8, 3040-3, HSTROP #### [facility] CLIA [id number] [address] [place], [place] [address] [place] Creatinine [Mass/Vol] 0.63 mg/dL Normal 0.51-0.95 [facility] Comment on above: Order Comment: Speci men Type: BLOOD SPECIMEN Ordering Facility: [facility] Address: [address] [place] [address] Result Comment: Temo ents receiving either N-Acetylcysteine (NAC) or Metamizole prior to venipuncture, may have falsely depressed results. Performed By: #### 2 4323-8, 3040-3, HSTROP #### [facility] CLIA [id number] [address] [place], [place] [address] [place] Creatinine and Glomerular filtration rate.predicted panel (S/P/Bld) 123 mL/min/1.73m??? Normal >=60 [facility] Comment on above: Order Comment: Jessica rojo Type: BLOOD SPECIMEN Ordering Facility: [facility] Address: [address] [place] [address] Result Comment: Sarah mated Glomerular Filtration Rate [...] By: #### 2 4323-8, 3040-3, HSTROP #### [facility] CLIA [id number] [address] [place] [address] [place] Glucose [Mass/Vol] 142 mg/dL High 70-100 [facility] Comment on above: Order Comment: Jessica rojo Type: BLOOD SPECIMEN Ordering Facility: [facility] Address: [address] [place] [address] Result Comment: The [place] Diabetes [employer] (ADA) provides guidance for cutoff [...] Standards of Medical Care in Diabetes 2016, [place] [employer]. Diabetes Care. 2016.39(Suppl 1). Results may be falsely elevated after the administration of Sulfapyridine. Results may be falsely depressed after the administration of Sulfasalazine. Performed By: #### 2 4323-8, 3040-3, HSTROP #### [facility] CLIA [id number] [address] [place], [place] [address] [place] Potassium [Moles/Vol] 3.7 mmol/L Normal 3.5-5.1 [facility] Comment on above: Order Comment: Speci men Type: BLOOD SPECIMEN Ordering Facility: [facility] Address: [address] [place] [address] Performed By: #### 2 4323-8, 0-3, HSTROP #### [facility] CLIA [id number] [address] [place] [address] [place] Protein [Mass/Vol] 7.2 g/dL Normal 6.0-8.5 [facility] Comment on above: Order Comment: Speci men Type: BLOOD SPECIMEN Ordering Facility: [facility] Address: [address] [place] [address] Performed By: #### 2 4323-8, 0-3, HSTROP #### [facility] CLIA [id number] [address] [place] [address] [place] Sodium [Moles/Vol] 136 mmol/L Normal 136-145 [facility] Comment on above: Order Comment: Speci men Type: BLOOD SPECIMEN Ordering Facility: [facility] Address: [address] [place] [address] Performed By: #### 2 4323-8, 0-3, HSTROP #### [facility] CLIA [id number] [address] [place], [place] [address] [place] Urea nitrogen [Mass/Vol] 10 mg/dL Normal 7-26 [facility] Comment on above: Order Comment: Speci men Type: BLOOD SPECIMEN Ordering Facility: [facility] Address: [address] [place] [address] Performed By: #### 2 4323-8, 3040-3, HSTROP #### [facility] CLIA [id number] [facility] [place] [address] [place] ECG COMPLETEon 08-11-2024 ECG COMPLETE Ventricular Rate : 7 8 BPM Atrial Rate : 78 BPM P-R Interval : 198 ms QRS Duration : 84 ms Q-T Interval : 374 ms QTC Calculation(Bazett) : 426 ms Calculated P [place] : 47 degrees Calculated R [place] : 63 degrees Calculated T [place] : 47 degrees Normal sinus rhythm Normal ECG When compared with ECG of 05-Feb-2024 04:52, No significant change was found Confirmed by CECIL LANDEROS MD ([id number]) on 08/12/2024 2:10:44 PM NAME : BETSY MESA PID : [id number] : 1995 Gender : Female Race : Other ORD : [id number] Procedure Date : Aug 11 2024 02:58:03 Edit Date : Aug 12 2024 14:10:44 Diagnosis: Normal sinus rhythm Normal ECG When compared with ECG of 05-Feb-2024 04:52, No significant change was found Confirmed by CECIL LANDEROS MD ([id number]) on 08/12/2024 2:10:44 PM Test Reason : STAT Location : 0 : ED EDH02 Overread By : CECIL LANDEROS MD Edited By : CECIL LANDEROS MD Referred By : , Acquired by : [id number], [facility] ED PROV NOTEon 08-11-2024 ED PROV NOTE HNO ID: [id number] Author: RUBEN QUINTANA MD Service: ? Author [...] pancreatitis, pyelone (more content not included)... Normal [facility] Gastrointestinal pathogens p tyra HUNG+probe (Stl)on 08-11-2024 ADENOVIRUS F 40/41 DNA Not detected Normal Not Detecte d [facility] Comment on above: Order Comment: Jessica rojo Type: STOOL SPECIMEN Ordering Facility: [facility] Address: [address] [place] [address] Performed By: #### 7 9381-0 #### [facility] CLIA [id number] [facility] [place] [address] [place] ASTROVIRUS RNA Not detected Normal Not Detected [facility] Comment on above: Order Comment: Speci men Type: STOOL SPECIMEN Ordering Facility: [facility] Address: [address] [place] [address] Performed By: #### 7 9381-0 #### [facility] CLIA [id number] [address] [place] [address] [facility] [place] C. cayetanensis DNA HUNG+probe Ql (Unsp spec) Not detected Normal Not Detected [facility] Comment on above: Order Comment: Speci men Type: STOOL SPECIMEN Ordering Facility: [facility] Address: [address] [place] [address] Performed By: #### 7 9381-0 #### [facility] CLIA [id number] [address] [place] [address] [place] Campylobacter sp DNA.diarrheagenic HUNG+probe Ql (Stl) Not detected Normal Not Detected [facility] Comment on above: Order Comment: Speci men Type: STOOL SPECIMEN Ordering Facility: [facility] Address: [address] [place] [address] Performed By: #### 7 9381-0 #### [facility] CLIA [id number] [address] [place] [address] [place] Cryptosporidium sp DNA HUNG+probe Ql (Unsp spec) Not detected Normal Not Detected [facility] Comment on above: Order Comment: Speci men Type: STOOL SPECIMEN Ordering Facility: [facility] Address: [address] [place] [address] Performed By: #### 7 9381-0 #### [facility] CLIA [id number] [address] [place] [address] [place] E. coli O157:H7 DNA HUNG+probe Ql (Unsp spec) Not applicable Normal Not detected [facility] Comment on above: Order Comment: Speci men Type: STOOL SPECIMEN Ordering Facility: [facility] Address: [address] [place] [address] Performed By: #### 7 9381-0 #### [facility] CLIA [id number] [address] [place] [address] [place] E. coli stx1+stx2 genes HUNG+probe Ql (Stl) Not detected Normal Not Detected [facility] Comment on above: Order Comment: Speci men Type: STOOL SPECIMEN Ordering Facility: [facility] Address: [address] [place] [address] Performed By: #### 7 9381-0 #### [facility] CLIA [id number] [address] [place] [address] [facility] E. histolytica DNA HUNG+probe Ql (Unsp spec) Not detected Normal Not Detected [facility] Comment on above: Order Comment: Speci men Type: STOOL SPECIMEN Ordering Facility: [facility] Address: [address] [place] [address] Performed By: #### 7 9381-0 #### [facility] CLIA [id number] [address] [place] [address] [place] ENTEROAGGREGATIVE E. COLI (EAEC) DNA Not detected Normal Not Detected [facility] Comment on above: Order Comment: Speci men Type: STOOL SPECIMEN Ordering Facility: [facility] Address: [address] [place] [address] Performed By: #### 7 9381-0 #### [facility] CLIA [id number] [address] [place] [address] [place] ENTEROPATHOGENIC E. COLI (EPEC) DNA Not detected Normal Not detected [facility] Comment on above: Order Comment: Speci men Type: STOOL SPECIMEN Ordering Facility: [facility] Address: [address] [place] [address] Performed By: #### 7 9381-0 #### [facility] CLIA [id number] [address] [place] [address] [place] ENTEROTOXIGENIC E. COLI (ETEC) DNA Not detected Normal Not Detected [facility] Comment on above: Order Comment: Speci men Type: STOOL SPECIMEN Ordering Facility: [facility] Address: [address] [place] [address] Performed By: #### 7 9381-0 #### [facility] CLIA [id number] [address] [place] [address] [place] G. lamblia DNA HUNG+probe Ql (Unsp spec) Not detected Normal Not Detected [facility] Comment on above: Order Comment: Speci men Type: STOOL SPECIMEN Ordering Facility: [facility] Address: [address] [place] [address] Performed By: #### 7 9381-0 #### [facility] CLIA [id number] [address] [place] [address] [facility] NOROVIRUS GI/GII RNA Not detected Normal Not Detected [facility] Comment on above: Order Comment: Speci men Type: STOOL SPECIMEN Ordering Facility: [facility] Address: [address] [place] [address] Performed By: #### 7 9381-0 #### [facility] CLIA [id number] [address] [place] [address] [facility] [place] PLESIOMONAS SHIGELLOIDES DNA Not detected Normal Not Detected [facility] Comment on above: Order Comment: Speci men Type: STOOL SPECIMEN Ordering Facility: [facility] Address: [address] [place] [address] Performed By: #### 7 9381-0 #### [facility] CLIA [id number] [address] [place] [address] [place] ROTAVIRUS A RNA Not detected Normal Not Detected [facility] Comment on above: Order Comment: Speci men Type: STOOL SPECIMEN Ordering Facility: [facility] Address: [address] [place] [address] Performed By: #### 7 9381-0 #### [facility] CLIA [id number] [address] [place] [address] [place] Salmonella sp DNA HUNG+probe Ql (Unsp spec) Not detected Normal Not Detected [facility] Comment on above: Order Comment: Speci men Type: STOOL SPECIMEN Ordering Facility: [facility] Address: [address] [place] [address] Performed By: #### 7 9381-0 #### [facility] CLIA [id number] [address] [place] [address] [place] SAPOVIRUS (GENOGROUPS I, II, IV, V) RNA Not detected Normal Not Detected [facility] Comment on above: Order Comment: Speci men Type: STOOL SPECIMEN Ordering Facility: [facility] Address: [address] [place] [address] Performed By: #### 7 9381-0 #### [facility] CLIA [id number] [address] [place] [address] [place] Shigella species+EIEC invasion plasmid antigen H ipaH gene HUNG+probe Ql (Stl) Not detected Normal Not Detected [facility] Comment on above: Order Comment: Speci men Type: STOOL SPECIMEN Ordering Facility: [facility] Address: [address] [place] [address] Performed By: #### 7 9381-0 #### [facility] CLIA [id number] [address] [place] [address] [place] V. cholerae DNA HUNG+probe Ql (Unsp spec) Not detected Normal Not Detected [facility] Comment on above: Order Comment: Speci men Type: STOOL SPECIMEN Ordering Facility: [facility] Address: [address] [place] [address] Performed By: #### 7 9381-0 #### [facility] CLIA [id number] [address] [place] [address] [place] Vibrio sp DNA HUNG+probe Nom (Unsp spec) Not detected Normal Not Detected [facility] Comment on above: Order Comment: Speci men Type: STOOL SPECIMEN Ordering Facility: [facility] Address: [address] [place] [address] Performed By: #### 7 9381-0 #### [facility] IA [id number] [address] [place] [address] [place] Yersinia sp DNA HUNG+probe Nom (Unsp spec) Not detected Normal Not Detected [facility] Comment on above: Order Comment: Speci men Type: STOOL SPECIMEN Ordering Facility: [facility] Address: [address] [place] [address] Performed By: #### 7 9381-0 #### [facility] CLIA [id number] [address] [place], [place] [address] [place] HCG Preg Ur Qlon 08-11-2024 HCG ( test) Ql (U) Negative Normal Negative [facility] Comment on above: Order Comment: Specalesia rojo Type: URINE SPECIMEN Ordering Facility: [facility] Address: [address] [place] [address] Result Comment: This test is intended to aid in the early detection of . Very dilute urine samples, as indicated by a low specific gravity, may not contain accounts payable representative levels of hCG. This test detects [...] . Performed By: #### 2 106-3 #### [facility] CLIA [id number] [address] [place] [address] [place] HIGH SENSITIVITY TROPONIN Io n 08-11-2024 Tropinin I.cardiac panel High sensitivity method <2.5 Normal 0.0-34.0 [facility] Comment on above: Order Comment: Jessica rojo Type: BLOOD SPECIMEN Ordering Facility: [facility] Address: [address] [place] [address] Performed By: #### 2 4323-8, 3040-3, HSTROP #### [facility] CLIA [id number] [address] [place], [place] [address] [place] Lipase SerPl-cCncon 08-11-19 25 Lipase [Catalytic activity/Vol] 45 U/L Normal 12-60 [facility] Comment on above: Order Comment: Jessica [facility] Type: BLOOD SPECIMEN Ordering Facility: [facility] Address: [address] [place] [address] Performed By: #### 2 4323-8, 3040-3, HSTROP #### [facility] CLIA [id number] [address] [place] [address] Urinalysis complete panel (U )on 08-11-2024 Bacteria LM.HPF (Urine sed) [#/Area] None Seen Normal None Seen [facility] Comment on above: Order Comment: Speci men Type: URINE SPECIMEN Ordering Facility: [facility] Address: [address] [place] [address] Performed By: #### 2 4356-8 #### [facility] CLIA [id number] [address] [place] [address] [place] Bilirubin Ql (U) Negative Normal Negative [facility] Comment on above: Order Comment: Speci men Type: URINE SPECIMEN Ordering Facility: [facility] Address: [address] [place] [address] Performed By: #### 2 4356-8 #### [facility] CLIA [id number] [address] [place] [address] [place] CALCIUM OXALATE CRYSTALS (UA) Few Abnormal None Seen [facility] Comment on above: Order Comment: Speci men Type: URINE SPECIMEN Ordering Facility: [facility] Address: [address] [place] [address] Performed By: #### 2 4356-8 #### [facility] CLIA [id number] [address] [place] [address] [place] Clarity (Unsp spec) Clear Normal Clear [facility] Comment on above: Order Comment: Speci men Type: URINE SPECIMEN Ordering Facility: [facility] Address: [address] [place] [address] Performed By: #### 2 4356-8 #### [facility] CLIA [id number] [address] [place] [address] [place] Color (U) Yellow Normal Yellow [facility] Comment on above: Order Comment: Speci men Type: URINE SPECIMEN Ordering Facility: [facility] Address: [address] [place] [address] Performed By: #### 2 4356-8 #### [facility] CLIA [id number] [address] [place] [address] Epithelial cells LM.HPF (Urine sed) [#/Area] Few Normal [facility] Comment on above: Order Comment: Speci men Type: URINE SPECIMEN Ordering Facility: [facility] Address: [address] [place] [address] Performed By: #### 2 4356-8 #### [facility] CLIA [id number] [address] [place] [address] Glucose Test strip (U) [Mass/Vol] Negative Normal Negative [facility] Comment on above: Order Comment: Speci men Type: URINE SPECIMEN Ordering Facility: [facility] Address: [address] [place] [address] Performed By: #### 2 4356-8 #### [facility] CLIA [id number] [address] [place] [address] OF [facility] Hemoglobin Ql (U) 3+ Abnormal Negative [facility] Comment on above: Order Comment: Speci men Type: URINE SPECIMEN Ordering Facility: [facility] Address: [address] [place] [address] Performed By: #### 2 4356-8 #### [facility] CLIA [id number] [address] [place] [address] [place] Ketones Ql (U) Negative Normal Negative [facility] Comment on above: Order Comment: Speci men Type: URINE SPECIMEN Ordering Facility: [facility] Address: [address] [place] [address] Performed By: #### 2 4356-8 #### [facility] CLIA [id number] [address] [place] [address] [place] Leukocyte esterase Test strip Ql (U) Trace Abnormal Negative [facility] Comment on above: Order Comment: Speci men Type: URINE SPECIMEN Ordering Facility: [facility] Address: [address] [place] [address] Performed By: #### 2 4356-8 #### [facility] CLIA [id number] [address] [place] [address] [place] Nitrite Ql (U) Negative Normal Negative [facility] Comment on above: Order Comment: Speci men Type: URINE SPECIMEN Ordering Facility: [facility] Address: [address] [place] [address] Performed By: #### 2 4356-8 #### [facility] CLIA [id number] [address] [place] [address] [place] pH (U) 6.0 [pH] Normal 5.0-8.0 [facility] Comment on above: Order Comment: Speci men Type: URINE SPECIMEN Ordering Facility: [facility] Address: [address] [place] [address] Performed By: #### 2 4356-8 #### [facility] CLIA [id number] [address] [place] [address] [place] Protein (U) [Mass/Vol] Negative Normal Negative [facility] Comment on above: Order Comment: Speci men Type: URINE SPECIMEN Ordering Facility: [facility] Address: [address] [place] [address] Performed By: #### 2 4356-8 #### [facility] CLIA [id number] [address] [place] [address] [place] RBC LM.HPF (Urine sed) [#/Area] /[HPF] Abnormal 0-3 /HPF [facility] Comment on above: Order Comment: Speci men Type: URINE SPECIMEN Ordering Facility: [facility] Address: [address] [place] [address] Performed By: #### 2 4356-8 #### [facility] CLIA [id number] [address] [place] [address] [place] Specific gravity (U) [Rel density] 1.017 Normal 1.005-1.030 [facility] Comment on above: Order Comment: Speci men Type: URINE SPECIMEN Ordering Facility: [facility] Address: [address] [place] [address] Performed By: #### 2 4356-8 #### [facility] CLIA [id number] [address] [place] [address] Urobilinogen Ql (U) Negative Normal Negative [facility] Comment on above: Order Comment: Speci men Type: URINE SPECIMEN Ordering Facility: [facility] Address: [address] [place] [address] Performed By: #### 2 4356-8 #### [facility] CLIA [id number] [address] [place] [address] [place] WBC LM.HPF (Urine sed) [#/Area] /[HPF] Abnormal 0-5 /HPF [facility] Comment on above: Order Comment: Speci men Type: URINE SPECIMEN Ordering Facility: [facility] Address: [address] [place] [address] Performed By: #### 2 4356-8 #### [facility] CLIA [id number] [address] [place] [address] [place] Emergency Department Summary on 08-08-2024 Emergency Department Summary [facility] Medical Records Department [address] [place] [address] Emergency Department Summary 08/08/24 MR#: [id number] Acct: [id number] Name: BETSY MESA Rep #: [id number] : 1995 29 From: Nelson Ulloa DO [...] pain and therefore comes in for evaluation [facility] Medical History (Updated 08/08/24 @ 01:19 [...] obvious physic (more content not included)... Normal [facility] Emergency Department Summary on 07-17-2024 Emergency Department Summary [facility] Medical Records Department [address] [place] [address] Emergency Department Summary 07/17/24 MR#: [id number] Acct: [id number] Name: BETSY MESA Rep #: [id number] : 1995 29 From: Oseas Aviles MD [...] water does help. Denies any other injury. [facility] Medical History Anxiety Paresthesias Cervical [...] area, is roughly 0.5 cm in a [place]. Patient will be given oral ibuprofen. She [...] DAILY amoxicillin (more content not included)... Normal [facility] Emergency Department Summary on 07-12-2024 Emergency Department Summary [facility] Medical Records Department [address] [place] [address] Emergency Department Summary 07/12/24 MR#: [id number] Acct: [id number] Name: BETSY MESA Rep #: [id number] : 1995 29 From: Abhinav Sofia DO [...] nausea or vomiting. Patient denies any rhinorrhea. [facility] Medical History Anxiety Paresthesias Cervical [...] Provider: Vishal (more content not included)... Normal [facility] M100.677on 07-12-2024 M100.677 Pending Rapid Strep A PCR A POSITIVE A Streptococcus group A Normal [facility] Comment on above: Performed By: #### M 100.678, M100.677 ####[facility] [address] [place], [address] M100.678on 07-12-2024 M100.678 Pending SARS-CoV-2 (COVID 19) Negative INFLUENZA A Negative INFLUENZA B Negative RSV PCR Negative Normal [facility] Comment on above: Performed By: #### M 100.678, M100.677 ####[facility] [address] [place], [address] Basic Metabolic Profile (BMP )on 06-16-2024 BUN/CRE 16.9 RATIO Normal 10-20 [facility] Comment on above: Performed By: #### L 501.9520, L100.0100, L500.2500, L501.5200 #### [facility] [address] [place], [address] CA,Total 9.0 mg/dL Normal 8.5-10.1 [facility] Comment on above: Performed By: #### L 501.9520, L100.0100, L500.2500, L501.5200 #### [facility] [address] [place], [address] Chloride [Moles/Vol] 108 mmol/L High 98-107 [facility] Comment on above: Performed By: #### L 501.9520, L100.0100, L500.2500, L501.5200 #### [facility] [address] [place], [address] CO2 [Moles/Vol] 28.0 mmol/L Normal 21.0-32.0 [facility] Comment on above: Performed By: #### L 501.9520, L100.0100, L500.2500, L501.5200 #### [facility] [address] [place], [address] Creatinine [Mass/Vol] 0.77 mg/dL Normal 0.55-1.02 [facility] Comment on above: Result Comment: The validity of the calculated GFR GFRAA in patients over 70 years has not been determined. Clinical correlation is essential. Performed By: #### L 501.9520, L100.0100, L500.2500, L501.5200 #### [facility] [address] [place], [address] ECRCL 138.63 ml/min Normal [facility] Comment on above: Performed By: #### L 501.9520, L100.0100, L500.2500, L501.5200 #### [facility] [address] [place], [address] EST GFR - AA 114 mL/min Normal >60 [facility] Comment on above: Result Comment: Afri can Taiwanese GFR Calc Performed By: #### L 501.9520, L100.0100, L500.2500, L501.5200 #### [facility] [address] [place], [address] GAP 3 Low 5-15 [facility] Comment on above: Performed By: #### L 501.9520, L100.0100, L500.2500, L501.5200 #### [facility] [address] [place], [address] GFR/1.73 sq M.predicted among non-blacks MDRD (S/P/Bld) [Vol rate/Area] 94 mL/min/{1.73_m2} Normal >60 [facility] Comment on above: Result Comment: Non- GFR Calc Performed By: #### L 501.9520, L100.0100, L500.2500, L501.5200 #### [facility] [address] [place], [address] Glucose [Mass/Vol] 104 mg/dL Normal 74-106 [facility] Comment on above: Result Comment: Fast ing Glucose result from 100 to 125 mg/dL suggests IMPAIRED HOMEOSTASIS per A.D.A. criteria. Performed By: #### L 501.9520, L100.0100, L500.2500, L501.5200 #### [facility] [address] [place], [address] Potassium [Moles/Vol] 3.8 mmol/L Normal 3.5-5.1 [facility] Comment on above: Performed By: #### L 501.9520, L100.0100, L500.2500, L501.5200 #### [facility] [address] [place], [address] Sodium [Moles/Vol] 139 mmol/L Normal 136-145 [facility] Comment on above: Performed By: #### L 501.9520, L100.0100, L500.2500, L501.5200 #### [facility] [address] [place], [address] Urea nitrogen [Mass/Vol] 13 mg/dL Normal 7-18 [facility] Comment on above: Performed By: #### L 501.9520, L100.0100, L500.2500, L501.5200 #### [facility] [address] [place], [address] CBC W/Diff, Automatedon 11 Absolute Lymph 3.38 X10 3/uL Normal 0.83-4.51 [facility] Comment on above: Performed By: #### L 501.9520, L100.0100, L500.2500, L501.5200 #### [facility] [address] [place], [address] Absolute Neut 4.1 X10 3/uL Normal 2.0-7.7 [facility] Comment on above: Performed By: #### L 501.9520, L100.0100, L500.2500, L501.5200 #### [facility] [address] [place], [address] Basophils/100 WBC (Bld) 0.5 % Normal 0-1 [facility] Comment on above: Performed By: #### L 501.9520, L100.0100, L500.2500, L501.5200 #### [facility] [address] [place], [address] Eosinophils/100 WBC (Bld) 2.2 % Normal 0-5 [facility] Comment on above: Performed By: #### L 501.9520, L100.0100, L500.2500, L501.5200 #### [facility] [address] [place], [address] Erythrocyte distribution width (RBC) [Ratio] 14.6 % Normal 11.6-14.6 [facility] Comment on above: Performed By: #### L 501.9520, L100.0100, L500.2500, L501.5200 #### [facility] [address] [place], [address] Hematocrit (Bld) [Volume fraction] 31.0 % Low 37-47 [facility] Comment on above: Performed By: #### L 501.9520, L100.0100, L500.2500, L501.5200 #### [facility] [address] [place], [address] Hemoglobin (Bld) [Mass/Vol] 9.8 g/dL Low 12.0-15.0 [facility] Comment on above: Performed By: #### L 501.9520, L100.0100, L500.2500, L501.5200 #### [facility] [address] [place], [address] IG% 0.100 Normal 0.0-0.9 [facility] Comment on above: Result Comment: IG% - Immature Granulocytes (promyelocytes, myelocytes and metamyelocytes) > 1% indicates that a LEFT SHIFT is Present. Performed By: #### L 501.9520, L100.0100, L500.2500, L501.5200 #### [facility] [address] [place], [address] Lymphocytes/100 WBC (Bld) 41.0 % Normal 19-41 [facility] Comment on above: Performed By: #### L 501.9520, L100.0100, L500.2500, L501.5200 #### [facility] [address] [place], [address] MCH (RBC) [Entitic mass] 26.9 pg Low 27.0-32.0 [facility] Comment on above: Performed By: #### L 501.9520, L100.0100, L500.2500, L501.5200 #### [facility] [address] [place], [address] MCHC (RBC) [Mass/Vol] 31.6 g/dL Low 32-36 [facility] Comment on above: Performed By: #### L 501.9520, L100.0100, L500.2500, L501.5200 #### [facility] [address] [place], [address] MCV (RBC) [Entitic vol] 85.2 fL Normal 81-99 [facility] Comment on above: Performed By: #### L 501.9520, L100.0100, L500.2500, L501.5200 #### [facility] [address] [place], [address] Monocytes/100 WBC (Bld) 6.5 % Normal 0-10 [facility] Comment on above: Performed By: #### L 501.9520, L100.0100, L500.2500, L501.5200 #### [facility] [address] [place], [address] Neutrophils/100 WBC (Bld) 49.7 % Normal 47-70 [facility] Comment on above: Performed By: #### L 501.9520, L100.0100, L500.2500, L501.5200 #### [facility] [address] [place], [address] Nucleated RBC (Bld) [#/Vol] 0 10*3/uL Normal 0-5 [facility] Comment on above: Performed By: #### L 501.9520, L100.0100, L500.2500, L501.5200 #### [facility] [address] [place], [address] Platelet mean volume (Bld) [Entitic vol] 10.4 fL Normal 6.2-12.0 [facility] Comment on above: Performed By: #### L 501.9520, L100.0100, L500.2500, L501.5200 #### [facility] [address] [place], [address] Platelets (Bld) [#/Vol] 257 10*3/uL Normal 150-450 [facility] Comment on above: Performed By: #### L 501.9520, L100.0100, L500.2500, L501.5200 #### [facility] [address] [place], [address] RBC (Bld) [#/Vol] 3.64 10*6/uL Low 4.2-5.4 [facility] Comment on above: Performed By: #### L 501.9520, L100.0100, L500.2500, L501.5200 #### [facility] [address] [place], [address] RDW SD 45.7 fl High 35.1-43.9 [facility] Comment on above: Performed By: #### L 501.9520, L100.0100, L500.2500, L501.5200 #### [facility] [address] [place], [address] WBC (Bld) [#/Vol] 8.3 10*3/uL Normal 4.4-11.0 [facility] Comment on above: Performed By: #### L 501.9520, L100.0100, L500.2500, L501.5200 #### [facility] [address] [place], [address] Emergency Department Summary on 06-16-2024 Emergency Department Summary [facility] Medical Records Department [address] [place] [address] Emergency Department Summary 06/16/24 MR#: [id number] Acct: [id number] Name: BETSY MESA Rep #: [id number] : 1995 29 From: Nelson Ulloa DO PCP: Care Physician,No Primary Status:[facility] ER Location: ED HPI History of Present [...] thyroid and therefore comes in for evaluation [facility] Medical History Anxiety Paresthesias Cervical [...] to ensure (more content not included)... Normal [facility] Magnesiumon 06-16-2024 Magnesium [Mass/Vol] 2.0 mg/dL Normal 1.6-2.6 [facility] Comment on above: Performed By: #### L 501.9520, L100.0100, L500.2500, L501.5200 #### [facility] [address] [place], [place], [address] Thyroid Stim Hormone (TSH)on 06-16-2024 TSH 0.884 uIU/mL Normal 0.358-3.740 [facility] Comment on above: Performed By: #### L 501.9520, L100.0100, L500.2500, L501.5200 #### [facility] [address] [place], [place], [address] B-HCG SerPl-aCncon 4 HCG.beta subunit Qn 2327.0 m[IU]/mL High <5.0 [facility] Comment on above: Order Comment: Speci men Type: TISSUE SPECIMEN Ordering Facility: [facility] Address: [facility] [place] [address] Result Comment: JALYN TITATIVE HCG NORMAL RANGES Weeks of Gestation (Weeks Since LMP) 3 Weeks (5.8-71.2 mIU/mL) 4 Weeks (9.5-750 mIU/mL) 5 Weeks (217-7138 mIU/mL) 6 Weeks (158-50279 mIU/mL) 7 Weeks (3697-073830 mIU/mL) 8 Weeks (95016-058203 mIU/mL) 9 Weeks (38182-750705 mIU/mL) 10 Weeks (99402-663705 mIU/mL) 12 Weeks (92548-361650 mIU/mL) Referenced to 4th IS of [facility] Performed By: #### S #### [facility] CLIA [id number] [address] [place] [address] OF [facility] CNOVon 05-06-2024 CNOV Office Visit (OBGYWM ) BETSY MESA ([id number]) 1995 F Date Time Provider Department 05/06/24 2:30 PM LEELA CURRIE OBGYWM During your visit today, we recorded the following information about you: Pulse Respiration Blood pressure Weight 102/minute 18/minute 108/70 96.2 kg Leela Currie MD 05/07/2024 10:35 AM Signed Betsy Mesa is a 29 year old female who presents for problem visit for vaginal bleeding, falling HCG levels. Patient's last menstrual period was 02/18/2024 (within days). Last week was seen for this and dx w/ SAB. Last night started bleeding and went to [facility] ED but long wait so went to [place] ED and they offered patient to go to [facility] or f/u in office. Patient was d/jose home to f/u today. Having waves of cramping nad passing clots, bleeding heavier than a period. Soaked through pads last night then it slowed and passed more clots. OB History T3 L3 SAB0 IAB0 Ectopic0 Multiple0 Live Births3 Hand Tacker History LMP: 02/18/2024 (Within Days), Recent Age at Menarche: Age at First : Age at Menopause: Hand Tacker History Comments: Sexual Activity: Yes; Male Contraception: [...] discussed with the Patient or Patient's Authorized Legal Summer Intern. As applicable, any other physician, advance practice provider, medical student, or other health professional student that will be observing or involved in the sensitive examination for educational or training purposes was discussed with the Patient or Authorized Legal Summer Intern. The Patient or Authorized Legal Summer Intern has agreed to proceed with the sensitive examination. (Sensitive examination includes inspection and/or palpation of the breasts, pelvis, prostate and anorectal regions). EXAM: Wt 212 lb (96.2kg) LMP 02/18/2024 GENERAL: in pain, female in mild distress ABDOMEN: soft, non-tender, and no masses PELVIC: external genitalia normal, normal Bartholin's glands, urethra, Wynnburg's glands, no vulvar lesions, no cervical lesions, [...] EMERGENT p (more content not included)... Normal [facility] SURGICAL PATHOLOGYon 024 CASE REPORT Normal [facility] Comment on above: Order Comment: Speci men Type: TISSUE SPECIMEN Ordering Facility: [facility] Address: [address] [place] [address] Result Comment: Surg ica Pathology Report Case: [id number] Authorizing Provider: Leela Currie MD Collected: 05/06/2024 04:56 PM Ordering Location: OB/Gynecology Received: 05/07/2024 12:08 PM Pathologist: Eli Bowen MD Specimen: Products of Conception Performed By: #### S #### [facility] CLIA [id number] [address] [place] [address] [place] CLINICAL HISTORY incomplete spontaneo us Normal [facility] Comment on above: Order Comment: Speci men Type: TISSUE SPECIMEN Ordering Facility: [facility] Address: [address] [place] [address] Performed By: #### S #### [facility] CLIA [id number] FINAL DIAGNOSIS Normal [facility] Comment on above: Order Comment: Speci men Type: TISSUE SPECIMEN Ordering Facility: [facility] Address: [address] [place] [address] Result Comment: A. Products of conception: - Products of conception, to include immature chorionic villi. - Decidua and gestational endometrium. Performed By: #### S #### [facility] CLIA [id number] [address] [place] [address] FINAL PERFORMING LAB Normal [facility] Comment on above: Order Comment: Speci men Type: TISSUE SPECIMEN Ordering Facility: [facility] Address: [address] [place] [address] Result Comment: Diag nostic interpretation performed at [facility], [address] [place] [address] CLIA# [id number] [employer] Social Science Teacher: Jeremiah Lemons M.D. Performed By: #### S #### [facility] CLIA [id number] [address] [place] [address] GROSS DESCRIPTION Normal [facility] Comment on above: Order Comment: Speci men Type: TISSUE SPECIMEN Ordering Facility: [facility] Address: [address] [place] [address] Result Comment: A. P roducts of Conception Received in formalin labeled products of conception are multiple irregularly-shaped, purple-steward, soft tissue fragments admixed with blood clot aggregating to 6 x 4.5 x 0.5 cm. There is possible chorionic villi. There are no vesicles or parts. Legal Summer Intern sections are submitted in cassettes A1-A3. DAVINA May 07, 2024 3:45 PM Gross examination performed at [facility], [address] [place] [address] CLIA# [id number] Performed By: #### S #### [facility] CLIA [id number] [address] [place] [address] [place] PREGUon 05-05-2024 HCG ( test) Ql (U) Positive Normal [facility] Comment on above: Performed By: #### U A, PREGU, UAMIC #### [facility] [place] [address] [address] test (u) int Detected Invalid Interpretation Code [facility] Comment on above: Performed By: #### U A, PREGU, UAMIC #### [facility] [place] [address] [address] UAon 05-05-2024 Color (U) Straw Normal [facility] Comment on above: Performed By: #### U A, PREGU, UAMIC #### [facility] [place] [address] [address] Glucose (U) [Mass/Vol] Negative Normal Negative AU LTMAN [facility] Comment on above: Performed By: #### U A, PREGU, UAMIC #### [facility] [place] [address] [address] Ketones Ql (U) Negative Normal Neg-Trace [facility] Comment on above: Performed By: #### U A, PREGU, UAMIC #### [facility] [place] [address] [address] UA Appear Clear Normal [facility] Comment on above: Performed By: #### U A, PREGU, UAMIC #### [facility] [place] [address] [address] UA Blood Large Abnormal Neg-Trace [facility] Comment on above: Performed By: #### U A, PREGU, UAMIC #### [facility] [place] [address] [id number] UA Leuk Est Negative Normal Negative [facility] Comment on above: Performed By: #### U A, PREGU, UAMIC #### [facility] [place] [address] [phone] UA Nitrite Negative Normal Negative [facility] Comment on above: Performed By: #### U A, PREGU, UAMIC #### [facility] [place] [address] [address] UA pH 5.5 Normal 5.0 - 8.0 [facility] Comment on above: Performed By: #### U A, PREGU, UAMIC #### [facility] [place] [address] [address] UA Protein Negative Normal Negative [facility] Comment on above: Performed By: #### U A, PREGU, UAMIC #### [facility] [place] [address] [address] UA Spec Grav <=1.005 Abnormal [facility] Comment on above: Performed By: #### U A, PREGU, UAMIC #### [facility] [place] [address] [address] UA Specimen Type Clean Catch Normal [facility] Comment on above: Performed By: #### U A, PREGU, UAMIC #### [facility] [place] [address] [address] UA Urobilinogen 0.2 E.U./dL Normal [facility] Comment on above: Performed By: #### U A, PREGU, UAMIC #### [facility] [place] [address] [address] Urobilinogen (U) [Mass/Vol] Negative Normal Neg-Trace [facility] Comment on above: Performed By: #### U A, PREGU, UAMIC #### [facility] [place] [address] [address] UAMICon 05-05-2024 UA Bacteria Negative Normal Negative [facility] Comment on above: Performed By: #### U A, PREGU, UAMIC #### [facility] [place] [address] [address] UA RBC 25-50 Abnormal 0-2 [facility] Comment on above: Performed By: #### U A, PREGU, UAMIC #### [facility] [place] [address] [address] UA Squam Epithelial 0-2 Normal 0-20 [facility] Comment on above: Performed By: #### U A, PREGU, UAMIC #### [facility] [address] [place], [place] [address] UA WBC 0-2 Normal 0-5 [facility] Comment on above: Performed By: #### U A, PREGU, UAMIC #### [facility] [address] [place], [place] [address] CNPNon 05-02-2024 CNPN Telephone (OBGYWM) BETSY MESA ([id number]) 1995 F Date Time Provider Department 05/02/24 [...] Status:Closed by IRMA LIN on 05/07/24 Normal [facility] B-HCG SerPl-aCncon 4 HCG.beta subunit Qn 4890.0 m[IU]/mL High <5.0 [facility] Comment on above: Order Comment: Speci men Type: TISSUE SPECIMEN Ordering Facility: [facility] Address: [address] [place] [address] Result Comment: JALYN TITATIVE HCG NORMAL RANGES Weeks of Gestation (Weeks Since LMP) 3 Weeks (5.8-71.2 mIU/mL) 4 Weeks (9.5-750 mIU/mL) 5 Weeks (217-7138 mIU/mL) 6 Weeks (158-81654 mIU/mL) 7 Weeks (3697-783546 mIU/mL) 8 Weeks (74203-471768 mIU/mL) 9 Weeks (19502-235037 mIU/mL) 10 Weeks (46608-824047 mIU/mL) 12 Weeks (42168-376618 mIU/mL) Referenced to 4th IS of [facility] Performed By: #### S #### [facility] CLIA [id number] [address] [place] [place] [address] [place] CNOVon 05-01-2024 CNOV Office Visit (OBGYWM ) BETSY MESA ([id number]) 1995 F Date Time Provider Department 05/01/24 1:30 PM JOSE ARANDA OBLEONARDOWM During your visit today, we recorded the following information about you: Blood pressure Weight 108/70 97.1 kg Jose Aranda APRN.CNM 05/01/2024 2:31 PM Signed Betsy Mesa is a 29 year old [...] she started spotting and cramping this morning. Hand Tacker History LMP: 02/18/2024 (Within Days), Age at Menarche: Age at First : Age at Menopause: Hand Tacker History Comments: Sexual Activity: Yes; Male Contraception: [...] - No s/s of ectopic per US deburr technician - Current gestational sac is 82 [...] Jose Aranda APRN.CNM Referring Provider: SUSHIL VILLANUEVA [[id number]] Allergies As of Date: 05/01/2024 Noted Allergy [...] in seco (more content not included)... Normal [facility] US Pelvison 05-01-2024 Indication viability, spotting Impression [...] Read By: Keshawn Moscoso M.D. MATERNAL MEDICINE [facility] Radiology Study observation (narrative) [facility] B-HCG SerPl-aCncon 4 HCG.beta subunit Qn 5643.0 m[IU]/mL High <5.0 [facility] Comment on above: Order Comment: Speci men Type: TISSUE SPECIMEN Ordering Facility: [facility] Address: [address] [place] [address] Result Comment: JALYN TITATIVE HCG NORMAL RANGES Weeks of Gestation (Weeks Since LMP) 3 Weeks (5.8-71.2 mIU/mL) 4 Weeks (9.5-750 mIU/mL) 5 Weeks (217-7138 mIU/mL) 6 Weeks (158-24790 mIU/mL) 7 Weeks (3697-978639 mIU/mL) 8 Weeks (86747-042546 mIU/mL) 9 Weeks (72524-568364 mIU/mL) 10 Weeks (51299-000722 mIU/mL) 12 Weeks (86907-161442 mIU/mL) Referenced to 4th IS of [facility] Performed By: #### S #### [facility] CLIA [id number] [address] [place] [address] [place] [address] [place] Bacteria Ur Culton 4 Bacteria identified Cx Nom (U) ORGANISM ID: 1 50,000-<100,000 CFU/ml Normal urogenital marilu Normal [facility] Comment on above: Performed By: #### S #### [facility] CLIA [id number] [address] [place] [address] [place] CBC panel Auto (Bld)on 04-28 Erythrocyte distribution width (RBC) [Ratio] 16.9 % High 11.5 - 15.0 % [facility] Hematocrit (Bld) [Volume fraction] 35.1 % Low 36.0 - 46.0 % [facility] Hemoglobin (Bld) [Mass/Vol] 11.8 g/dL 11.5 - 15.5 g/dL [facility] Interpretation and review of laboratory results Abnormal [facility] MCH (RBC) [Entitic mass] 28.4 pg 26.0 - 34.0 pg [facility] MCHC (RBC) [Mass/Vol] 33.6 g/dL 30.5 - 36.0 g/dL [facility] MCV (RBC) [Entitic vol] 84.6 fL 80.0 - 100.0 fL [facility] Nucleated RBC (Bld) [#/Vol] NINF [facility] Platelet mean volume (Bld) [Entitic vol] 11.4 fL 9.0 - 12.7 fL [facility] Platelets (Bld) [#/Vol] 176 10*3/uL [facility] RBC (Bld) [#/Vol] 4.15 10*6/uL 3.90 - 5.2 0 m/uL [facility] WBC (Bld) [#/Vol] 6.68 10*3/uL [facility] Erythrocyte distribution width (RBC) [Ratio] 16.9 % High 11.5-15.0 [facility] Comment on above: Order Comment: Speci men Type: TISSUE SPECIMEN Ordering Facility: [facility] Address: [address] [place] [address] Performed By: #### S #### [facility] CLIA [id number] [address] [place] [address] [place] Hematocrit (Bld) [Volume fraction] 35.1 % Low 36.0-46.0 [facility] Comment on above: Order Comment: Speci men Type: TISSUE SPECIMEN Ordering Facility: [facility] Address: [address] [place] [address] Performed By: #### S #### [facility] CLIA [id number] [address] [place] [address] [place] Hemoglobin (Bld) [Mass/Vol] 11.8 g/dL Normal 11.5-15.5 [facility] Comment on above: Order Comment: Speci men Type: TISSUE SPECIMEN Ordering Facility: [facility] Address: [address] [place] [address] Performed By: #### S #### [facility] IA [id number] [address] [place] [address] [place] MCH (RBC) [Entitic mass] 28.4 pg Normal 26.0-34.0 [facility] Comment on above: Order Comment: Speci men Type: TISSUE SPECIMEN Ordering Facility: [facility] Address: [address] [place] [address] Performed By: #### S #### [facility] CLIA [id number] [address] [place] [address] [place] MCHC (RBC) [Mass/Vol] 33.6 g/dL Normal 30.5-36.0 [facility] Comment on above: Order Comment: Speci men Type: TISSUE SPECIMEN Ordering Facility: [facility] Address: [address] [place] [address] Performed By: #### S #### [facility] CLIA [id number] [address] [place] [address] [place] MCV (RBC) [Entitic vol] 84.6 fL Normal 80.0-100.0 [facility] Comment on above: Order Comment: Speci men Type: TISSUE SPECIMEN Ordering Facility: [facility] Address: [address] [place] [address] Performed By: #### S #### [facility] CLIA [id number] [address] [id number] [address] [place] Nucleated RBC (Bld) [#/Vol] 10*3/uL Normal <0.01 [facility] Comment on above: Order Comment: Speci men Type: TISSUE SPECIMEN Ordering Facility: [facility] Address: [address] [place] [address] Performed By: #### S #### [facility] CLIA [id number] [address] [place] [address] [place] Platelet mean volume (Bld) [Entitic vol] 11.4 fL Normal 9.0-12.7 [facility] Comment on above: Order Comment: Speci men Type: TISSUE SPECIMEN Ordering Facility: [facility] Address: [address] [place] [address] Performed By: #### S #### [facility] CLIA [id number] [address] [place] [address] [place] Platelets (Bld) [#/Vol] 176 10*3/uL Normal 150-400 [facility] Comment on above: Order Comment: Speci men Type: TISSUE SPECIMEN Ordering Facility: [facility] Address: [address] [place] [address] Performed By: #### S #### [facility] CLIA [id number] [address] [place] [address] [place] RBC (Bld) [#/Vol] 4.15 10*6/uL Normal 3.90-5.20 [facility] Comment on above: Order Comment: Speci men Type: TISSUE SPECIMEN Ordering Facility: [facility] Address: [address] [place] [address] Performed By: #### S #### [facility] CLIA [id number] [address] [place] [address] [place] WBC (Bld) [#/Vol] 6.68 10*3/uL Normal 3.70-11.00 [facility] Comment on above: Order Comment: Speci men Type: TISSUE SPECIMEN Ordering Facility: [facility] Address: [address] [place] [address] Performed By: #### S #### [facility] CLIA [id number] [address] [place] [address] [place] [address] [place] CNOVon 04-28-2024 CNOV Office Visit (OBGYWM ) BETSY MESA ([id number]) 1995 F Date Time Provider Department 04/28/24 11:00 AM SUSHIL VILLANUEVA OBGYWM During your visit today, we recorded the following information about you: Blood pressure Weight Height Last Period 116/68 97.8 kg 1.784 m 02/18/24 Sushil Villanueva, SENIOR TECHNICAL PROJECT MANAGER.MID LEVEL GAME DESIGNER 04/28/2024 12:59 PM Signed Betsy Waters Bonita is a [...] L3 SAB0 IAB0 Ectopic0 Multiple0 Live Births3 Hand Tacker History LMP: 02/18/2024 (Within Days), Having periods Age at Menarche: Age at First : Age at Menopause: Hand Tacker History Comments: Sexual Activity: Yes; Male Contraception: [...] Assessed 04/28/2024 REVIEW OF SYSTEMS Expanded ROS: SOCIAL WORKER PSYCHIATRIC: + amenorrhea Allergies and current medication updated:Yes SENSITIVE EXAM: The sensitive examination was discussed with the Patient or Patient's Authorized Legal Summer Intern. As applicable, any other physician, advance practice provider, medical student, or other health professional student that will be observing or involved in the sensitive examination for educational or training purposes was discussed with the Patient or Authorized Legal Summer Intern. The Patient or Authorized Legal Summer Intern has agreed to proceed with the sensitive [...] - ICD9: V22.1, ICD10: Z34.91 - POC LICENSING ANALYST ULTRASOUND - HCG QUANTITATIVE - COMPLETE BLOOD [...] Date Reviewed: 04/28/2024 Reviewed by: Sushil Villanueva APRN.MID LEVEL GAME DESIGNER - Fully Assessed Reason for Visit: Missed menses [Other] Primary Visit Diagnosis: with uncertain viability, single or unspecified fetus [O36.80X0] Other Visit Diagnosis: with uncertain dates in first trimester [Z34.91] Order(s):POC LICENSING ANALYST ULTRASOUND [[id number]] Order #: [id number]. (more content not included)... Normal [facility] HbA1c (Bld)on 04-28-2024 Average glucose Estimated from glycated hemoglobin (Bld) [Mass/Vol] 120 mg/dL Normal [facility] Comment on above: Order Comment: Jessica rojo Type: BLOOD SPECIMEN Ordering Facility: [facility] Address: [address] [place] [address] Result Comment: eAG: (Estimated average glucose) is a calculated value from HgbA1c and is accounts payable representative of the average blood glucose level in the last 2-3 month period. Performed By: #### 5 5454-3 #### [facility] CLIA [id number] [address] [place], [place] [address] [address] [place] HbA1c (Bld) [Mass fraction] 5.8 % High 4.3-5.6 [facility] Comment on above: Order Comment: Jessica rojo Type: BLOOD SPECIMEN Ordering Facility: [facility] Address: [address] [place] [address] Result Comment: Amer [place] Diabetes Association guidelines indicate that patients with HgbA1c in the range 5.7-6.4% are at increased risk for development of diabetes, and intervention by lifestyle modification may be beneficial. HgbA1c greater or equal to 6.5% is considered diagnostic of diabetes. Performed By: #### 5 5454-3 #### [facility] CLIA [id number] [address] [place] [address] [place] POC LICENSING ANALYST ULTRASOUNDon 04-28-20 24 Indication Viability; confirm cardiac [...] Read By: Sushil Villanueva NP MATERNAL MEDICINE [facility] Radiology Study observation (narrative) [facility] TYPE + SCREEN PRENATALon ABO O Normal [facility] Comment on above: Order Comment: Speci men Type: BLOOD SPECIMEN Ordering Facility: [facility] Address: [address] [place] [address] Performed By: #### T SPN #### [facility] CLIA [id number] [address] [place] [address] [place] Rh Nom (Bld) Positive Normal [facility] Comment on above: Order Comment: Speci men Type: BLOOD SPECIMEN Ordering Facility: [facility] Address: [address] [place] [address] Performed By: #### T SPN #### [facility] CLIA [id number] [address] [place] [address] [place] TYPE AND SCREEN EXPIRATION 05/01/2024 23:59 Normal [facility] Comment on above: Order Comment: Speci men Type: BLOOD SPECIMEN Ordering Facility: [facility] Address: [address] [place] [address] Performed By: #### T SPN #### [facility] CLIA [id number] [address] [place] [id number] [place] [address] [place] [facility] A1Con 02-20-2024 Glucose [Mass/Vol] 137 mg/dL Normal [facility] ([place]) Comment on above: Result Comment: Sarah mated Average Glucose calculated by equation ((28.7xA1C)-46.7) Estimated average glucose (eAG) is a calculated value from Hemoglobin A1C and is accounts payable representative of the average blood glucose level in the last 2-3 month period. Normal range: less than 114 mg/dL Performed By: #### N GPCR1, CTPCR #### [place] [address] HbA1c (Bld) [Mass fraction] 6.4 % High 4.0-6.0 [facility] ([place]) Comment on above: Performed By: #### N GPCR1, CTPCR #### [place] [address] FT302-20-2024 Free T3 [Mass/Vol] 3.01 pg/mL Normal 2.30-4.20 [facility] ([place]) Comment on above: Performed By: #### F T4, FT3 #### [place] [address] FT4on 02-20-2024 Free T4 [Mass/Vol] 1.02 ng/dL Normal 0.89-1.76 [facility] ([place]) Comment on above: Result Comment: No te - New Reference Range in effect 20 Performed By: #### F T4, FT3 #### [place] [address] .Auto Diffon 02-19-2024 Basophil, Absolute 0.0 10 3/mcL Normal 0.0-0.3 [facility] ([place]) Comment on above: Performed By: #### T SH, CBC, A1C, FE, ANEU, FERR, ADIFF, CMP, GFR, MG #### [address] [address] Basophils/100 WBC (Bld) 0.4 % Normal 0.0-2.5 [facility] ([place]) Comment on above: Performed By: #### T SH, CBC, A1C, FE, ANEU, FERR, ADIFF, CMP, GFR, MG #### [address] [address] Eosinophil, Absolute 0.2 10 3/mcL Normal 0.0-0.7 [facility] ([place]) Comment on above: Performed By: #### T SH, CBC, A1C, FE, ANEU, FERR, ADIFF, CMP, GFR, MG #### [address] [address] Eosinophils/100 WBC (Bld) 2.7 % Normal 0.0-6.0 [facility] ([place]) Comment on above: Performed By: #### T SH, CBC, A1C, FE, ANEU, FERR, ADIFF, CMP, GFR, MG #### [address] [address] Lymphocyte, Absolute 2.1 10 3/mcL Normal 0.9-4.3 [facility] ([place]) Comment on above: Performed By: #### T SH, CBC, A1C, FE, ANEU, FERR, ADIFF, CMP, GFR, MG #### [address] [address] Lymphocytes/100 WBC (Bld) 30.6 % Normal 20.0-40.0 [facility] ([place] Comment on above: Performed By: #### T SH, CBC, A1C, FE, ANEU, FERR, ADIFF, CMP, GFR, MG #### [address] [address] Monocyte, Absolute 0.4 10 3/mcL Normal 0.1-1.4 [facility] ([place]) Comment on above: Performed By: #### T SH, CBC, A1C, FE, ANEU, FERR, ADIFF, CMP, GFR, MG #### [address] [address] Monocytes/100 WBC (Bld) 5.7 % Normal 2.0-13.0 [facility] ([place]) Comment on above: Performed By: #### T SH, CBC, A1C, FE, ANEU, FERR, ADIFF, CMP, GFR, MG #### [address] [address] Neutrophils/100 WBC (Bld) 60.6 % Normal 50.0-75.0 [facility] ([place]) Comment on above: Performed By: #### T SH, CBC, A1C, FE, ANEU, FERR, ADIFF, CMP, GFR, MG #### [address] [address] .GFRon 02-19-2024 GFR >60 Normal [facility] ([place]) Comment on above: Result Comment: GFR Population [...] Performed By: #### N GPCR1, CTPCR #### [address] [address] GFR Non- >60 Normal [facility] ([place]) Comment on above: Result Comment: GFR Population [...] Performed By: #### N GPCR1, CTPCR #### [address] [address] .NEUABSon 02-19-2024 Neutrophil, Absolute 4.1 10 3/mcL Normal 2.3-8.1 [facility] ([place]) Comment on above: Performed By: #### T SH, CBC, A1C, FE, ANEU, FERR, ADIFF, CMP, GFR, MG #### [place] [address] CBCon 02-19-2024 Erythrocyte distribution width (RBC) [Ratio] 17.6 % High 11.5-15.5 [facility] ([place]) Comment on above: Performed By: #### T SH, CBC, A1C, FE, ANEU, FERR, ADIFF, CMP, GFR, MG #### [place] [address] Hematocrit (Bld) [Volume fraction] 35.4 % Normal 34.0-46.0 [facility] ([place]) Comment on above: Performed By: #### T SH, CBC, A1C, FE, ANEU, FERR, ADIFF, CMP, GFR, MG #### [place] [address] Hgb 11.3 G/dL Low 12.0-16.0 [facility] ([place]) Comment on above: Performed By: #### T SH, CBC, A1C, FE, ANEU, FERR, ADIFF, CMP, GFR, MG #### [place] [address] MCH (RBC) [Entitic mass] 26.5 pg Low 27.0-33.0 [facility] ([place] Comment on above: Performed By: #### T SH, CBC, A1C, FE, ANEU, FERR, ADIFF, CMP, GFR, MG #### [place] [address] MCHC 32.0 G/dL Normal 32.0-36.0 [facility] ([place] Comment on above: Performed By: #### T SH, CBC, A1C, FE, ANEU, FERR, ADIFF, CMP, GFR, MG #### [place] [address] MCV (RBC) [Entitic vol] 82.9 fL Normal 80.0-99.0 [facility] ([place] Comment on above: Performed By: #### T SH, CBC, A1C, FE, ANEU, FERR, ADIFF, CMP, GFR, MG #### [place] [address] Platelet 205 10 3/mcL Normal 150-450 [facility] ([place]) Comment on above: Performed By: #### T SH, CBC, A1C, FE, ANEU, FERR, ADIFF, CMP, GFR, MG #### [place] [address] Platelet mean volume (Bld) [Entitic vol] 9.5 fL Normal 6.6-10.5 [facility] ([place]) Comment on above: Performed By: #### T SH, CBC, A1C, FE, ANEU, FERR, ADIFF, CMP, GFR, MG #### [place] [address] RBC 4.27 10 6/mcL Normal 4.10-5.30 [facility] ([place]) Comment on above: Performed By: #### T SH, CBC, A1C, FE, ANEU, FERR, ADIFF, CMP, GFR, MG #### [place] [address] WBC 6.8 10 3/mcL Normal 4.5-10.8 [facility] ([place]) Comment on above: Performed By: #### T SH, CBC, A1C, FE, ANEU, FERR, ADIFF, CMP, GFR, MG #### [place] [id number] CMPon 02-19-2024 Albumin Level 3.8 G/dL Normal 3.2-4.8 [facility] ([place]) Comment on above: Performed By: #### N GPCR1, CTPCR #### [address] [address] Albumin/Globulin [Mass ratio] 1.2 {ratio} Normal 0.9-1.6 [facility] ([place]) Comment on above: Performed By: #### N GPCR1, CTPCR #### [address] [address] ALP [Catalytic activity/Vol] 63 U/L Normal 38-126 [facility] ([place]) Comment on above: Performed By: #### N GPCR1, CTPCR #### [address] [address] ALT [Catalytic activity/Vol] 17 U/L Normal 10-49 [facility] ([place]) Comment on above: Performed By: #### N GPCR1, CTPCR #### [address] [address] AST [Catalytic activity/Vol] 14 U/L Normal 8-34 [facility] ([place]) Comment on above: Performed By: #### N GPCR1, CTPCR #### [address] [address] Bili Total 0.30 mg/dL Normal 0.20-1.20 [facility] ([place]) Comment on above: Result Comment: Use of this assay is not recommended for patients undergoing treatment with eltrombopag due to the potential for falsely elevated results. Performed By: #### N GPCR1, CTPCR #### [place] [id number] BUN/Creatinine Ratio 14.3 ratio Normal 10.0-22.0 [facility] ([place]) Comment on above: Performed By: #### N GPCR1, CTPCR #### [address] [address] Calcium [Mass/Vol] 9.9 mg/dL Normal 8.7-10.4 [facility] ([place]) Comment on above: Performed By: #### N GPCR1, CTPCR #### [address] [address] Chloride [Moles/Vol] 108 mmol/L Normal 98-110 [facility] ([place]) Comment on above: Performed By: #### N GPCR1, CTPCR #### [address] [address] CO2 [Moles/Vol] 28 mmol/L Normal 22-32 [facility] ([place]) Comment on above: Performed By: #### N GPCR1, CTPCR #### [address] [address] Creatinine [Mass/Vol] 0.70 mg/dL Normal 0.50-1.20 [facility] ([place]) Comment on above: Performed By: #### N GPCR1, CTPCR #### [address] [address] Electrolyte Balance 3.0 mEq/L Low 4.0-15.0 [facility] ([place]) Comment on above: Performed By: #### N GPCR1, CTPCR #### [address] [address] Globulin 3.3 G/dL Normal 1.5-3.8 [facility] ([place]) Comment on above: Performed By: #### N GPCR1, CTPCR #### [address] [address] Glucose [Mass/Vol] 94 mg/dL Normal 70-110 [facility] ([place]) Comment on above: Performed By: #### N GPCR1, CTPCR #### [address] [address] Potassium [Moles/Vol] 4.3 mmol/L Normal 3.5-5.0 [facility] ([place]) Comment on above: Performed By: #### N GPCR1, CTPCR #### [address] [address] Sodium [Moles/Vol] 139 mmol/L Normal 136-145 [facility] ([place]) Comment on above: Performed By: #### N GPCR1, CTPCR #### [address] [address] Total Protein 7.1 G/dL Normal 5.7-8.2 [facility] ([place]) Comment on above: Result Comment: No te - New Reference Range in effect 20 Performed By: #### N GPCR1, CTPCR #### [place] [address] Urea nitrogen [Mass/Vol] 10.0 mg/dL Normal 8.0-22.0 [facility] ([place]) Comment on above: Performed By: #### N GPCR1, CTPCR #### [place] [address] FEon 02-19-2024 Iron [Mass/Vol] 36 ug/dL Low 50-170 [facility] ([place]) Comment on above: Performed By: #### T SH, CBC, A1C, FE, ANEU, FERR, ADIFF, CMP, GFR, MG #### [place] [address] Michael 02-19-2024 Ferritin [Mass/Vol] 2.7 ng/mL Low 8.0-252.0 [facility] ([place] Comment on above: Performed By: #### T SH, CBC, A1C, FE, ANEU, FERR, ADIFF, CMP, GFR, MG #### [place] [address] LABORATORYOrdered By: SYSTEM SYSTEM on 02-19-2024 Albumin [...] (S/P/Bld) [Vol rate/Area] ml/min/1.73sqm Invalid Interpretation Code [employer] [facility] S Comment on above: Interpretive Data: [...] calculated value from Hemoglobin A1C and is accounts payable representative of the average blood glucose level [...] 02-19-2024 Magnesium [Mass/Vol] 1.9 mg/dL Normal 1.6-2.4 [facility] ([place]) Comment on above: Performed By: #### N GPCR1, CTPCR #### [facility] [address] [place], [place] [address] TSHon 02-19-2024 TSH 0.121 mIU/mL Low 0.550-4.780 [facility] ([place]) Comment on above: Result Comment: No te - New Reference Range in effect 20 Performed By: #### N GPCR1, CTPCR #### [place] [address] CTPCRon 02-07-2024 C. trachomatis Interp Normal See CT Interp N [facility] ([place]) Comment on above: Result Comment: C. t rachomatis DNA not detected. Specimen is presumptive negative for C. trachomatis. A negative result does not preclude C. trachomatis infection because results depend on adequate specimen collection, absence of inhibitors, and sufficient DNA to be detected. See CT Interp N Performed By: #### N GPCR1, CTPCR #### [place] [address] C.trachomatis PCR Negative Normal Negative [facility] ([place]) Comment on above: Result Comment: Mole cular (PCR) assay performed on the Jose Sera 4800 system. Performed By: #### N GPCR1, CTPCR #### [place] [address] Chlam Source Cervix Normal [facility] ([place]) Comment on above: Performed By: #### N GPCR1, CTPCR #### [place] [address] [id number] 02-07-2024 GC PCR Source Cervix Normal [facility] ([place]) Comment on above: Performed By: #### N GPCR1, CTPCR #### [place] [address] N. gonorrhoeae (PCR) Negative Normal Negative [facility] ([place]) Comment on above: Result Comment: Mole cular (PCR) assay performed on the [employer]era 4800 System. Performed By: #### N GPCR1, CTPCR #### [place] [address] N. gonorrhoeae Interp Normal See NG Interp N [facility] ([place]) Comment on above: Result Comment: N. g onorrhoeae DNA not detected. Specimen is presumptive negative for N. gonorrhoeae. A negative result does not preclude Neisseria gonorrhoeae infection because results depend on adequate specimen collection, absence of inhibitors, and sufficient DNA to be detected. See NG Interp N Performed By: #### N GPCR1, CTPCR #### [place] [address] CTPCRon 01-02-2024 C. trachomatis Interp Normal [facility] ([place]) Comment on above: Result Comment: C. t rachomatis DNA not detected. Specimen is presumptive negative for C. trachomatis. A negative result does not preclude C. trachomatis infection because results depend on adequate specimen collection, absence of inhibitors, and sufficient DNA to be detected. See CT Interp N Performed By: #### C TPCR #### [place] [address] C.trachomatis PCR Negative Normal Negative [facility] ([place]) Comment on above: Result Comment: Mole cular (PCR) assay performed on the [employer] 4800 system. Performed By: #### C TPCR #### [address] [address] Chlam Source Vaginal Normal [facility] ([place]) Comment on above: Performed By: #### C TPCR #### [address] [address] [id number] 01-02-2024 GC PCR Source Vaginal Normal [facility] ([place]) Comment on above: Performed By: #### N GPCR1, CTPCR #### [place] [address] N. gonorrhoeae (PCR) Negative Normal Negative [facility] ([place]) Comment on above: Result Comment: Mole cular (PCR) assay performed on the [employer] 4800 System. Performed By: #### N GPCR1, CTPCR #### [address] [address] N. gonorrhoeae Interp Normal See NG Interp N [facility] ([place]) Comment on above: Result Comment: N. g onorrhoeae DNA not detected. Specimen is presumptive negative for N. gonorrhoeae. A negative result does not preclude Neisseria gonorrhoeae infection because results depend on adequate specimen collection, absence of inhibitors, and sufficient DNA to be detected. See NG Interp N Performed By: #### N GPCR1, CTPCR #### [place] [address] [place] [address] CASE MANAGEMon 12-11-2023 CASE MANAGEM HNO ID: [id number] Author: ALLY LEHMAN RN Service: ? Author [...] Primary Care Physician Name/Phone: Dr. Marcelo Isbell [phone] Additional Information: Patient being discharged home today with self-care. S.O. to transport. No TCC needs. SIGNATURE: Ally Lehman RN PATIENT NAME: Betsy Mesa DATE: December 11, 2023 TIME: 3:07 PM CONTACT #: [phone] [facility] 12-11-2023 [facility] HNO ID: [id number] Author: LORETA FROST MD Service: Hospital Medicine [...] call for appointment?: Yes Marcelo Isbell DO [phone] [address] PCP Requested Referral Follow-Up Appointment For right-sided facial numbness and headache When: In 1 week Patient/Parents to call for appointment?: Yes Cecil Ramirez MD [phone] [facility] [address] PCP Requested Referral Additional Provider to Provider Information: Treatment Team: Attending Provider: Loreta Frost MD [facility] Consulting: Cecil Ramirez MD Transitions of Care Critical Issues: SPECIALIST FOLLOW-UP: Neurology if numbness persists GIL MEDICATION CHANGES: Amlodipine 5 mg p.o. daily, metformin 500 mg p.o. every morning LABS AND PROCEDURES PENDING AT DISCHARGE: No pending results. FOLLOW-UP APPOINTMENTS ALREADY SCHEDULED WITH A [facility] PROVIDER: No future appointments. ALLERGIES Allergen Reactions [...] Commonly k (more content not included)... Normal [facility] CONSULTon 12-11-2023 CONSULT HNO ID: [id number] Author: ALICIA ARELLANO MD Service: Neurology General [...] as needed for Pain.Disp: 30 tabletRfl: 0 Evzsdtrc-Pr-Ysx-Fe-FA ( VITAMIN) tabTake 1 tablet by mouth [...] exam revea (more content not included)... Normal [facility] ALLIED HEALTHon 12-10-2023 ALLIED HEALTH HNO ID: [id number] Author: CHARLIE WESTON RT(R) Service: Radiology Author [...] PATIENT PRESENTS WITH AN IMPLANTABLE OR ATTACHED ARC AND GAS WELDER: No ALLERGIES: Reviewed and unchanged CONTRAST ALLERGY: NO. EXAM: MRI - CONTRAST TYPE: GROUP II PERIPHERAL IV DATA: Inpatient - refer to LDA documentation RADIOLOGY DEPARTMENT: MR; Exam(s) Completed: Head: Routine Brain SIGNATURE: Charlie SundayRT(R) PATIENT NAME: Betsy Mesa DATE: December 10, 2023 TIME: 9:13 PM Normal [facility] Basic metabolic 2000 panelon 12-10-2023 Anion gap [Moles/Vol] 15 mmol/L Normal 9-18 [facility] Comment on above: Order Comment: Speci men Type: BLOOD SPECIMEN Ordering Facility: [facility] Address: [address] [place] [address] Performed By: #### 2 4321-2, 83783-7 #### [facility] CLIA [id number] [address] [place] [address] [place] Calcium [Mass/Vol] 8.9 mg/dL Normal 8.5-10.2 [facility] Comment on above: Order Comment: Speci men Type: BLOOD SPECIMEN Ordering Facility: [facility] Address: [address] [place] [address] Performed By: #### 2 4321-2, 09796-7 #### [facility] CLIA [id number] 1 [place] [address] [place] Chloride [Moles/Vol] 106 mmol/L High 97-105 [facility] Comment on above: Order Comment: Speci men Type: BLOOD SPECIMEN Ordering Facility: [facility] Address: [address] [place] [address] Performed By: #### 2 4321-2, 46908-1 #### [facility] CLIA [id number] [address] OF [facility] CO2 [Moles/Vol] 19 mmol/L Low 22-30 [facility] Comment on above: Order Comment: Speci men Type: BLOOD SPECIMEN Ordering Facility: [facility] Address: [address] [place] [address] Performed By: #### 2 432-2, 18947-8 #### [facility] CLIA [id number] [address] [place] [address] OF [facility] Creatinine [Mass/Vol] 0.69 mg/dL Normal 0.58-0.96 [facility] Comment on above: Order Comment: Speci men Type: BLOOD SPECIMEN Ordering Facility: [facility] Address: [address] [place] [address] Performed By: #### 2 432-2, 85115-7 #### [facility] CLIA [id number] [address] [place] [address] Creatinine and Glomerular filtration rate.predicted panel (S/P/Bld) 121 mL/min/1.73m??? Normal >=60 [facility] Comment on above: Order Comment: Speci men Type: BLOOD SPECIMEN Ordering Facility: [facility] Address: [address] [place] [address] Result Comment: Sarah mated Glomerular Filtration Rate [...] actual GFR. Performed By: #### 2 4321-2, 35571-5 #### [facility] CLIA [id number] 1 [place] [address] [place] Glucose [Mass/Vol] 80 mg/dL Normal 74-99 [facility] Comment on above: Order Comment: Jessica rojo Type: BLOOD SPECIMEN Ordering Facility: [facility] Address: [address] [place] [address] Result Comment: The [place] Diabetes Association (ADA) provides guidance for cutoff [...] Standards of Medical Care in Diabetes 2016, [place] Diabetes Association. Diabetes Care. 2016.39(Suppl 1). Performed By: #### 2 4321-2, 75373-9 #### [facility] CLIA [id number] 1 [place] [address] [place] Potassium [Moles/Vol] 3.5 mmol/L Low 3.7-5.1 [facility] Comment on above: Order Comment: Jessica rojo Type: BLOOD SPECIMEN Ordering Facility: [facility] Address: [address] [place] [address] Performed By: #### 2 4321-2, 89894-6 #### [facility] CLIA [id number] 1 [place] [address] [place] Sodium [Moles/Vol] 140 mmol/L Normal 136-144 [facility] Comment on above: Order Comment: Jessica rojo Type: BLOOD SPECIMEN Ordering Facility: [facility] Address: [address] [place] [address] Performed By: #### 2 4321-2, 72523-7 #### [facility] CLIA [id number] 1 [place] [address] [place] Urea nitrogen [Mass/Vol] 8 mg/dL Normal 7-21 [facility] Comment on above: Order Comment: Speci men Type: BLOOD SPECIMEN Ordering Facility: [facility] Address: [facility] [place] [address] Performed By: #### 2 4321-2, 99607-2 #### [facility] CLIA [id number] 1 [place] [address] [place] CASE MGT INIT MALISSAon 2023 CASE MGT INIT ASSES HNO ID: [id number] Author: ALLY LEHMAN RN Service: ? Author Type: Registered Nurse Type: Care Mgt Initial Assessment Filed: 12/10/2023 15:00 Note Text: CARE MANAGEMENT: ASSESSMENT AND DISCHARGE PLAN SERVICE DATE: December 10, 2023 SERVICE TIME: 1457 PCP: Marcelo Isbell DO Primary Contact: Extended Emergency Contact Information Primary Emergency Contact: AryandenilsonCooper Mobile Relation: Significant other Admission Status: Observation Insurance Provider: [facility] MEDICAID OF [place] Discharge Planning requested by: Per Department Practice Potential Transition Plans No Services Indicated;Home Advance Directives Current Advance Directive: None Compliance Reviewer Attempted to Assist with AD Completion: Yes [...] Be able to go home, Independent living Concepcion of Choice Explained: Concepcion of Choice Given: No Reason Not Given: [...] December 10, 2023 TIME: 2:58 PM Normal [facility] HCG Preg Ur Qlon 12-10-2023 HCG ( test) Ql (U) Negative Normal Negative [facility] Comment on above: Order Comment: Speci men Type: URINE SPECIMEN Ordering Facility: [facility] Address: [address] [place] [address] Result Comment: This test is intended to aid in the early detection of . Very dilute urine samples, as indicated by a low specific gravity, may not contain accounts payable representative levels of hCG. This test detects [...] . Performed By: #### 2 106-3 #### 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 Normal [facility] HbA1c (Bld)on 12-10-2023 Average glucose Estimated from glycated hemoglobin (Bld) [Mass/Vol] 134 mg/dL Normal [facility] Comment on above: Order Comment: Jessica rojo Type: BLOOD SPECIMEN Ordering Facility: [facility] Address: [address] [place] [address] Result Comment: eAG: (Estimated average glucose) is a calculated value from HgbA1c and is accounts payable representative of the average blood glucose level in the last 2-3 month period. Performed By: #### 2 4321-2, 08230-6 #### [facility] CLIA [id number] [address] [place] OF [facility] HbA1c (Bld) [Mass fraction] 6.3 % High 4.3-5.6 [facility] Comment on above: Order Comment: Jessica rojo Type: BLOOD SPECIMEN Ordering Facility: [facility] Address: [address] [place] [address] Result Comment: Amer [place] Diabetes Association guidelines indicate that patients with HgbA1c in the range 5.7-6.4% are at increased risk for development of diabetes, and intervention by lifestyle modification may be beneficial. HgbA1c greater or equal to 6.5% is considered diagnostic of diabetes. Performed By: #### 2 4321-2, 62489-9 #### [facility] CLIA [id number] 1 [place] [address] [place] Lipid 1996 panelon 4 Cholesterol [Mass/Vol] 135 mg/dL Normal <200 [facility] Comment on above: Order Comment: Jessica rojo Type: BLOOD SPECIMEN Ordering Facility: [facility] Address: [address] [place] [address] Result Comment: <200 mg/dL, Desirable 200-239 mg/dL, Borderline high >239 mg/dL, High Performed By: #### 2 4321-2, 71532-8 #### [facility] CLIA [id number] [address] Cholesterol in HDL [Mass/Vol] 39 mg/dL Low >39 [facility] Comment on above: Order Comment: Jessica darrel Type: BLOOD SPECIMEN Ordering Facility: [facility] Address: [address] [place] [address] Result Comment: 40-5 9 mg/dL, Acceptable >59 mg/dL, High: Negative risk factor for coronary heart disease <40 mg/dL, Low: Positive risk factor for coronary heart disease Performed By: #### 2 4321-2, 42421-2 #### [facility] CLIA [id number] [address] Cholesterol in LDL [Mass/Vol] 80 mg/dL Normal <100 [facility] Comment on above: Order Comment: Jessica [facility] Type: BLOOD SPECIMEN Ordering Facility: [facility] Address: [address] [place] [address] Result Comment: <100 mg/dL, Optimal 100-129 mg/dL, Near optimal/above optimal 130-159 mg/dL, Borderline high 160-189 mg/dL, High >189 mg/dL, Very high Secondary prevention optimal LDL Cholesterol levels are recommended to be < 70 mg/dL Performed By: #### 2 4321-2, 43589-5 #### [facility] CLIA [id number] [address] Cholesterol in LDL/Cholesterol in HDL [Mass ratio] 2.05 {ratio} Normal <2.54 [facility] Comment on above: Order Comment: Jessica [facility] Type: BLOOD SPECIMEN Ordering Facility: [facility] Address: [address] [place] [address] Result Comment: Gifty yepez: 1. National Cholesterol Education Program ATP III Guideline At-A-Glance Quick Desk Reference: National Heart, Lung, and Blood [place]. National Institutes of Health. 2001: NIH Publication No. 01-3305. 2. An International Atherosclerosis Society position paper: global recommendations for the management of dyslipidemia: executive summary, Atherosclerosis. 2014: 232(2):410-413. Performed By: #### 2 4321-2, 57053-6 #### [facility] CLIA [id number] [address] Cholesterol in VLDL [Mass/Vol] 16 mg/dL Normal <30 [facility] Comment on above: Order Comment: Speci men Type: BLOOD SPECIMEN Ordering Facility: [facility] Address: [address] [place] [address] Performed By: #### 2 4321-2, 15377-7 #### [facility] CLIA [id number] [address] [place] Cholesterol non HDL [Mass/Vol] 96 mg/dL Normal <130 [facility] Comment on above: Order Comment: Speci men Type: BLOOD SPECIMEN Ordering Facility: [facility] Address: [address] [place] [address] Result Comment: <130 mg/dL, Optimal 130-159 mg/dL, Near optimal/above optimal 160-189 mg/dL, Borderline high 190-219 mg/dL, High >219 mg/dL, Very high Secondary prevention optimal non HDL Cholesterol levels are recommended to be <100 mg/dL Performed By: #### 2 4320-2, 29972-3 #### [facility] CLIA [id number] [address] Cholesterol.total/Chol esterol in HDL [Mass ratio] 3.46 {ratio} Normal <5.10 [facility] Comment on above: Order Comment: Speci men Type: BLOOD SPECIMEN Ordering Facility: [facility] Address: [address] [place] [address] Performed By: #### 2 1-2, 91839-6 #### [facility] CLIA [id number] [address] FASTING TIME 8 hrs Normal [facility] Comment on above: Order Comment: Speci men Type: BLOOD SPECIMEN Ordering Facility: [facility] Address: [address] [place] [address] Performed By: #### 2 1-2, 97350-5 #### [facility] CLIA [id number] 1 [place] [address] [place] Triglyceride [Mass/Vol] 80 mg/dL Normal <150 [facility] Comment on above: Order Comment: Speci men Type: BLOOD SPECIMEN Ordering Facility: [facility] Address: [address] [place] [id number] Result Comment: <150 mg/dL, Normal 150-199 mg/dL, Borderline high 200-499 mg/dL, High >499 mg/dL, Very high Performed By: #### 2 4321-2, 84544-9 #### [facility] CLIA [id number] [address] [place] [id number] [place] MRI BRAIN WO/W IVCONon 12-09 MRI BRAIN WO/W IVCON * * *Final Report* * * DATE OF EXAM: Dec 10 2023 9:29PM [facility] 0295 - MRI BRAIN WO/W IVCON [...] clinical examination, and consider further evaluation accordingly. Pulverizer Feeder: RADHA Transcribe Date/Time: Dec 10 2023 9:30P Dictated by : JOSUE HARRISON MD This examination was interpreted and the report reviewed and electronically signed by: JOSUE HARRISON MD on Dec 10 2023 9:38PM EST [id number] Normal [facility] THERAPY NTon 12-10-2023 THERAPY NT HNO ID: [id number] Author: DARRIUS GONZALEZ PT Service: Physical Therapy Author Type: Physical Therapist Type: Therapy (PT/OT/Speech/Resp) Filed: 12/10/2023 09:08 Note Text: PHYSICAL THERAPY MISSED VISIT SERVICE DATE: 12/10/2023 SERVICE TIME: 837 ROOM: [place] [address] Patient not seen due to Clinical Appropriateness (per OT no needs--only has facial numbness no mobility limitations--in room indep). Will D/C PT order SIGNATURE: Darrius Gonzalez PT PATIENT NAME: Betsy Mesa DATE: December 10, 2023 TIME: 9:07 AM Normal [facility] THERAPY NT HNO ID: [id number] Author: SASHA NY OTR/L Service: Occupational Therapy Author Type: Occupational Therapist Type: Therapy (PT/OT/Speech/Resp) Filed: 12/10/2023 08:42 Note Text: OCCUPATIONAL THERAPY MISSED VISIT SERVICE DATE: 12/10/2023 SERVICE TIME: ROOM: [place] [address] Patient not seen due to (Screened). Spoke with pt, identified no acute OT needs. Pt appears to be at her baseline for mobility and self-care tasks. Pt with family support at home, reports no concerns related to return home. Will sign off at this time. SIGNATURE: Sasha Ny OTR/Alina PATIENT NAME: Betsy Mesa DATE: December 10, 2023 TIME: 8:41 AM Normal [facility] Basic metabolic 2000 panelon 12-09-2023 Anion gap [Moles/Vol] 15 mmol/L Normal 9-18 [facility] Comment on above: Order Comment: Speci men Type: BLOOD SPECIMEN Ordering Facility: [facility] Address: [address] [place] [address] Performed By: #### 1 7023-9, 73374-3 #### [facility] CLIA [id number] 1 [place] [address] [place] Calcium [Mass/Vol] 9.1 mg/dL Normal 8.5-10.2 [facility] Comment on above: Order Comment: Speci men Type: BLOOD SPECIMEN Ordering Facility: [facility] Address: [address] [place] [address] Performed By: #### 1 84239, 62424-8 #### [facility] CLIA [id number] 1 [place] [address] [place] Chloride [Moles/Vol] 105 mmol/L Normal 97-105 [facility] Comment on above: Order Comment: Speci men Type: BLOOD SPECIMEN Ordering Facility: [facility] Address: [address] [place] [address] Performed By: #### 1 36239, 35097-7 #### [facility] CLIA [id number] 1 [place] [address] [place] CO2 [Moles/Vol] 22 mmol/L Normal 22-30 [facility] Comment on above: Order Comment: Speci men Type: BLOOD SPECIMEN Ordering Facility: [facility] Address: [address] [place] [address] Performed By: #### 1 6023-9, 34098-6 #### [facility] CLIA [id number] [address] [place] Creatinine [Mass/Vol] 0.76 mg/dL Normal 0.58-0.96 [facility] Comment on above: Order Comment: Jessica rojo Type: BLOOD SPECIMEN Ordering Facility: [facility] Address: [address] [place] [address] Performed By: #### 1 9123-9, 92505-4 #### [facility] CLIA [id number] [address] [place] Creatinine and Glomerular filtration rate.predicted panel (S/P/Bld) 110 mL/min/1.73m??? Normal >=60 [facility] Comment on above: Order Comment: Jessica rojo Type: BLOOD SPECIMEN Ordering Facility: [facility] Address: [address] [place] [address] Result Comment: Sarah mated Glomerular Filtration Rate [...] actual GFR. Performed By: #### 1 9123-9, 66537-6 #### [facility] CLIA [id number] [address] [place] Glucose [Mass/Vol] 110 mg/dL High 74-99 [facility] Comment on above: Order Comment: Jessica rojo Type: BLOOD SPECIMEN Ordering Facility: [facility] Address: [address] [place] [address] Result Comment: The [place] Diabetes Association (ADA) provides guidance for cutoff [...] Standards of Medical Care in Diabetes 2016, [place] Diabetes Association. Diabetes Care. 2016.39(Suppl 1). Performed By: #### 1 9123-9, 95902-8 #### [facility] CLIA [id number] [address] [place] Potassium [Moles/Vol] 3.3 mmol/L Low 3.7-5.1 [facility] Comment on above: Order Comment: Speci men Type: BLOOD SPECIMEN Ordering Facility: [facility] Address: [facility] [place] [address] Performed By: #### 1 9123-9, 12582-4 #### [facility] CLIA [id number] [address] STATES OF [facility] Sodium [Moles/Vol] 142 mmol/L Normal 136-144 [facility] Comment on above: Order Comment: Speci men Type: BLOOD SPECIMEN Ordering Facility: [facility] Address: [address] [place] [address] Performed By: #### 1 9123-9, 02553-0 #### [facility] CLIA [id number] [address] [place] Urea nitrogen [Mass/Vol] 8 mg/dL Normal 7-21 [facility] Comment on above: Order Comment: Speci men Type: BLOOD SPECIMEN Ordering Facility: [facility] Address: [address] [place] [address] Performed By: #### 1 91239, 66058-2 #### [facility] CLIA [id number] [address] [place] CBC panel Auto (Bld)on 12-08 Erythrocyte distribution width (RBC) [Ratio] 15.3 % High 11.5-15.0 [facility] Comment on above: Order Comment: Speci men Type: BLOOD SPECIMEN Ordering Facility: [facility] Address: [address] [place] [address] Performed By: #### 5 8410-2 #### [facility] CLIA [id number] [address] OF [facility] Hematocrit (Bld) [Volume fraction] 34.9 % Low 36.0-46.0 [facility] Comment on above: Order Comment: Speci men Type: BLOOD SPECIMEN Ordering Facility: [facility] Address: [address] [place] [address] Performed By: #### 5 8410-2 #### [facility] CLIA [id number] [address] Hemoglobin (Bld) [Mass/Vol] 11.2 g/dL Low 11.5-15.5 [facility] Comment on above: Order Comment: Speci men Type: BLOOD SPECIMEN Ordering Facility: [facility] Address: [address] [place] [address] Performed By: #### 5 8410-2 #### [facility] CLIA [id number] [address] MCH (RBC) [Entitic mass] 27.3 pg Normal 26.0-34.0 [facility] Comment on above: Order Comment: Speci men Type: BLOOD SPECIMEN Ordering Facility: [facility] Address: [address] [place] [address] Performed By: #### 5 8410-2 #### [facility] CLIA [id number] [address] STATES OF [facility] MCHC (RBC) [Mass/Vol] 32.1 g/dL Normal 30.5-36.0 [facility] Comment on above: Order Comment: Speci men Type: BLOOD SPECIMEN Ordering Facility: [facility] Address: [address] [place] [address] Performed By: #### 5 8410-2 #### [facility] CLIA [id number] [address] MCV (RBC) [Entitic vol] 85.1 fL Normal 80.0-100.0 [facility] Comment on above: Order Comment: Speci men Type: BLOOD SPECIMEN Ordering Facility: [facility] Address: [address] [place] [address] Performed By: #### 5 8410-2 #### [facility] CLIA [id number] [address] [place] Nucleated RBC (Bld) [#/Vol] 10*3/uL Normal <0.01 [facility] Comment on above: Order Comment: Speci men Type: BLOOD SPECIMEN Ordering Facility: [facility] Address: [address] [place] [address] Performed By: #### 5 8410-2 #### [facility] CLIA [id number] [address] [place] Platelet mean volume (Bld) [Entitic vol] 11.2 fL Normal 9.0-12.7 [facility] Comment on above: Order Comment: Speci men Type: BLOOD SPECIMEN Ordering Facility: [facility] Address: [address] [place] [address] Performed By: #### 5 8410-2 #### [facility] CLIA [id number] [address] [place] Platelets (Bld) [#/Vol] 212 10*3/uL Normal 150-400 [facility] Comment on above: Order Comment: Speci men Type: BLOOD SPECIMEN Ordering Facility: [facility] Address: [address] [place] [address] Performed By: #### 5 8410-2 #### [facility] CLIA [id number] [address] [place] RBC (Bld) [#/Vol] 4.10 10*6/uL Normal 3.90-5.20 [facility] Comment on above: Order Comment: Speci men Type: BLOOD SPECIMEN Ordering Facility: [facility] Address: [address] [place] [address] Performed By: #### 5 8410-2 #### [facility] CLIA [id number] [address] [place] WBC (Bld) [#/Vol] 7.45 10*3/uL Normal 3.70-11.00 [facility] Comment on above: Order Comment: Speci men Type: BLOOD SPECIMEN Ordering Facility: [facility] Address: [place] [address] Performed By: #### 5 8410-2 #### [facility] CLIA [id number] [address] [place] CT BRAIN ATTACK WO IVCONon 0 12-09-2023 CT BRAIN ATTACK WO IVCON * * *Final Report* * * DATE OF EXAM: Dec 09 2023 5:45PM [facility] 0502 - CT BRAIN ATTACK WO [...] ROC MUNIZ on 12/09/2023 5:51PM . CR_1 Pulverizer Feeder: RADHA Transcribe Date/Time: Dec 09 2023 6:00P Dictated by : JONATHAN WEISS MD This examination was interpreted and the report reviewed and electronically signed by: JONATHAN WEISS MD on Dec 09 2023 6:11PM EST [id number] CRITICAL!! Invalid Interpretation Code [facility] CTA HEAD W IVCONon 4 CTA HEAD W IVCON * * *Final Report* * * DATE OF EXAM: Dec 09 2023 5:51PM [facility] 0022 - CTA HEAD W IVCON [...] proximal basilar fenestration, seen best on smaller ochpa-me-pwre focused images through the region. The basilar artery is patent and relatively small secondary to large posterior communicating arteries bilaterally. Both posterior cerebral arteries are widely patent. Refrigeration Installer (topogram) images: No additional findings. IMPRESSION: 1. No evidence of significant carotid or vertebral artery stenosis 2. Proximal basilar fenestration noted 3. No evidence of an acute intracranial large vessel occlusion Arterial blood flow was measured to detect acute large vessel occlusion by computer aided detection software: Not Performed. Concordance between software and imaging review: Not Applicable. Pulverizer Feeder: RADHA Transcribe Date/Time: Dec 09 2023 6:19P Dictated by : JONATHAN WEISS MD This examination was interpreted and the report reviewed and electronically signed by: JONATHAN WEISS MD on Dec 09 2023 6:32PM EST [id number] Normal [facility] CTA NECK W IVCONon 4 CTA NECK W IVCON * * *Final Report* * * DATE OF EXAM: Dec 09 2023 5:51PM [facility] 0024 - CTA NECK W IVCON [...] proximal basilar fenestration, seen best on smaller yybiv-sh-zxti focused images through the region. The basilar artery is patent and relatively small secondary to large posterior communicating arteries bilaterally. Both posterior cerebral arteries are widely patent. Refrigeration Installer (topogram) images: No additional findings. IMPRESSION: 1. No evidence of significant carotid or vertebral artery stenosis 2. Proximal basilar fenestration noted 3. No evidence of an acute intracranial large vessel occlusion Arterial blood flow was measured to detect acute large vessel occlusion by computer aided detection software: Not Performed. Concordance between software and imaging review: Not Applicable. Pulverizer Feeder: PSCB Transcribe Date/Time: Dec 09 2023 6:19P Dictated by : JONATHAN WEISS MD This examination was interpreted and the report reviewed and electronically signed by: JONATHAN WEISS MD on Dec 09 2023 6:32PM EST [id number] Normal [facility] ED NOTEon 12-09-2023 ED NOTE HNO ID: [id number] Author: JUAN A FREEMAN RN Service: Emergency Medicine Author Type: Registered Nurse Type: ED Notes Filed: 12/09/2023 22:00 Note Text: Report called to receiving RN on 9100 Normal [facility] ED NOTE HNO ID: [id number] Author: JUAN A FREEMAN RN Service: Emergency Medicine Author Type: Registered Nurse Type: ED Notes Filed: 12/09/2023 22:01 Note Text: Performed dysphagia screening on pt, pt passed screening. Pt provided with applesauce and crackers x2. Pt has possessions and call light within reach. Pt updated on status of admit and bed being ready. Pt understanding at this time. Normal [facility] ED NOTE HNO ID: [id number] Author: MAGALIS PIERCE RN Service: Emergency Medicine Author Type: Registered Nurse Type: ED Notes Filed: 12/09/2023 17:36 Note Text: Blood sugar 116 Normal [facility] ED NOTE HNO ID: [id number] Author: DOM ALCOCER RN Service: ? Author Type: Registered Nurse Type: ED Notes Filed: 12/09/2023 16:54 Note Text: No answer for triage x1 Normal [facility] ED PROV NOTEon 12-09-2023 ED PROV NOTE HNO ID: [id number] Author: ROC MUNIZ MD Service: Emergency Medicine [...] is from kissing. 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: Patient user support analyst supervisor used: No PAST MEDICAL HISTORY Diagnosis Date [...] Row Nam (more content not included)... Normal [facility] ED PROV NOTE HNO ID: [id number] Author: ROC MUNIZ MD Service: Emergency Medicine [...] of her upper or lower extremities. Normal fohavq-de-dhrd. Visual french normal. Critical Care I spent a total of 40 minutes of critical care time in the evaluation and management of this patient. This was necessary to treat or prevent deterioration of the following condition(s): DIRECTOR LIFE INSURANCE impairment, which the patient had and/or has a high probability of suddenly developing. The patient received Consultation by Stroke neurology during the time that critical care was provided.I discussed the plan of care with the RESIDENT and agree with the findings documented. Critical care time excludes separately billed procedures. MD TOMAS Buenrostro JNO J 12/09/23 2329 Normal [facility] ED Triage Noteon 12-09-2023 ED Triage Note HNO ID: [id number] Author: SHERIN GUERRA APRN.MID LEVEL GAME DESIGNER Service: ? Author Type: Nurse Practitioner Type: [...] encounter. EKG Directly roomed SIGNATURE: Sherin Guerra APRN.MID LEVEL GAME DESIGNER Normal [facility] EKGon 12-09-2023 Electrocardiogram Ventricular Rate : 9 9 BPM Atrial Rate : 99 BPM P-R Interval : 186 ms QRS Duration : 80 ms Q-T Interval : 342 ms QTC Calculation(Bazett) : 438 ms Calculated P [place] : 45 degrees Calculated R [place] : 55 degrees Calculated T [place] : 27 degrees NORMAL SINUS RHYTHM NONSPECIFIC T WAVE ABNORMALITY NO PREVIOUS ECGS AVAILABLE Confirmed by MD MUNIZ JNO ([id number]) on 12/09/2023 6:44:50 PM NAME : BETSY MESA PID : [id number] : 1995 Gender : Female Race : Other ORD : Procedure Date : Dec 09 2023 17:06:20 Edit Date : Dec 09 2023 18:44:54 Diagnosis: NORMAL SINUS RHYTHM NONSPECIFIC T WAVE ABNORMALITY NO PREVIOUS ECGS AVAILABLE Confirmed by MD MUNIZ JNO ([id number]) on 12/09/2023 6:44:50 PM Test Reason : Location : 4 : [facility] [address] Overread By : MD MUNIZ JNO Edited By : MD MUNIZ JNO Referred By : , Acquired by : SONIYA ECHOLS Normal [facility] HIGH SENSITIVITY TROPONIN To 12-09-2023 Troponin T.cardiac High sensitivity method [Mass/Vol] <6 Normal <12 [facility] Comment on above: Order Comment: Jessica rojo Type: BLOOD SPECIMEN Ordering Facility: [facility] Address: [address] [place] [address] Result Comment: When assessing risk for acute [...] MACE. Performed By: #### H STNT #### [facility] CLIA [id number] [address] [place] [address] [place] Magnesium SerPl-mCncon 12-08 Magnesium [Mass/Vol] 1.9 mg/dL Normal 1.7-2.3 [facility] Comment on above: Order Comment: Jessica rojo Type: BLOOD SPECIMEN Ordering Facility: [facility] Address: [address] [place] [address] Performed By: #### 1 9123-9, 88717-8 #### [employer] [facility] CLIA [id number] [address] [place] PT panel Coag (PPP)on 2023 INR Coag (PPP) [Relative time] 1.1 {INR} Normal 0.9-1.3 [facility] Comment on above: Order Comment: Jessica rojo Type: BLOOD SPECIMEN Ordering Facility: [facility] Address: [address] [place] [address] Result Comment: Akos[employer] min K Antagonist (VKA) Therapeutic Range: INR 2 to 3 (Target INR of 2.5) Note: For patients treated with VKA drugs, such as warfarin, the [employer] 2012 Guideline recommends [...] Chest 2012, 141:7S-47S Kim RA, et al. [facility] 2017, 70: 252-289 Performed By: #### 3 4528-0, 75507-7 #### [employer] [facility] CLIA [id number] [address] [place] [address] [place] PT Coag (PPP) [Time] 11.4 s Normal 9.7-13.0 [facility] Comment on above: Order Comment: Jessica darrel Type: BLOOD SPECIMEN Ordering Facility: [facility] Address: [address] [id number] Performed By: #### 3 4528-0, 13370-1 #### [facility] CLIA [id number] [address] [id number] [facility] aPTT PPPon 12-09-2023 aPTT Coag (PPP) [Time] 26.9 s Normal 23.0-32.4 [facility] Comment on above: Order Comment: Speci men Type: BLOOD SPECIMEN Ordering Facility: [facility] Address: [address] [place] [address] [place] [address] Performed By: #### 3 4528-0, 64944-1 #### [facility] CLIA [id number] [address] [place] [id number] [facility] XR HIP 2-3 VIEWS LEFTon XR HIP 2-3 VIEWS LEFT ORIGINAL EXAMINATION: [...] Ordering Provider: JOSÉ MIGUEL Rosario [facility] ([place]) BASIC METABOLIC PANELon 03- Anion gap [Moles/Vol] 8.4 mmol/L Low 11-23 [facility] Comment on above: Performed By: #### D SANA #### [facility] [address] [place] [address] Calcium [Mass/Vol] 8.4 mg/dL Low 8.5-10.1 [facility] Comment on above: Performed By: #### D SANA #### [facility] [address] [place] [address] Chloride [Moles/Vol] 112 mmol/L High 98-107 [facility] Comment on above: Performed By: #### D SANA #### [facility] [address] [place] [address] CO2 [Moles/Vol] 26.0 mmol/L Normal 21-32 [facility] Comment on above: Performed By: #### D SANA #### [facility] [address] [place] [address] Creatinine [Mass/Vol] 0.80 mg/dL Normal 0.55-1.02 [facility] Comment on above: Performed By: #### D SANA #### [facility] [address] [place] [address] GFR > 60.0 [facility] Comment on above: Performed By: #### D SANA #### [facility] [address] [place] [address] GFR AM > 60.0 [facility] Comment on above: Result Comment: THE NORMAL LEVEL OF GFR VARIES ACCORDING TO AGE, SEX, AND BODY SIZE. A GFR LEVEL OF LESS THAN 60 ML/MIN REPRESENTS LOSS OF THE ADULT LEVEL OF NORMAL KIDNEY FUNCTION. Performed By: #### D SANA #### [address] [place] [address] Glucose [Mass/Vol] 153 mg/dL High 70-100 [facility] Comment on above: Performed By: #### D SANA #### [address] [place] [address] Potassium [Moles/Vol] 3.8 mmol/L Normal 3.5-5.1 [facility] Comment on above: Performed By: #### D SANA #### [address] [place] [address] Sodium [Moles/Vol] 142 mmol/L Normal 136-145 [facility] Comment on above: Performed By: #### D SANA #### [facility] [address] [place] [address] Urea nitrogen [Mass/Vol] 9.0 mg/dL Normal 7-18 [facility] Comment on above: Performed By: #### D SANA #### [facility] [address] [facility] [address] HCG URINEon 10-15-2023 Beta HCG ( test) Ql (U) Positive [facility] Comment on above: Order Comment: What Is Urine Source? Clean Catch Mid Stream Performed By: #### D SANA #### [address] [place] [address] URINALYSISon 10-15-2023 Color (U) Savita Normal [facility] Comment on above: Order Comment: What Is Urine Source? Clean Catch Mid Stream What Is Urine Source? Clean Catch Mid Stream Performed By: #### U A, UMIC #### [address] [place] [address] URINE MICROSCOPICon 10-15-19 24 URINE BACTERIA FEW Normal <1+ [facility] Comment on above: Performed By: #### U A, UMIC #### [address] [address] URINE WBC 0-3 Normal 0-3 [facility] Comment on above: Performed By: #### U A, UMIC #### [address] [address] RBC (U) [#/Vol] /uL Normal 0-2 [facility] Comment on above: Performed By: #### U A, UMIC #### [address] [address] UR SQUAM EPITH MODERATE Normal NONE-MANY [facility] Comment on above: Performed By: #### U A, UMIC #### [address] [address] CBC with AUTO DIFFon 024 BAS0 % 0.30 % Normal 0-2 [facility] Comment on above: Performed By: #### C BC #### [address] [address] Basophils (Bld) [#/Vol] 0.0 10*3/uL Normal 0-0.1 [facility] Comment on above: Performed By: #### C BC #### [address] [address] Eosinophils (Bld) [#/Vol] 0.2 10*3/uL Normal 0.0-1.80 [facility] Comment on above: Performed By: #### C BC #### [address] [address] Eosinophils/100 WBC (Bld) 1.7 % Normal 0-8 [facility] Comment on above: Performed By: #### C BC #### [address] [address] GRAN # 6.5 K/uL Normal 2.2-9.1 [facility] Comment on above: Performed By: #### C BC #### [facility] [address] [place] [address] GRAN % 69.1 % Normal 42-80 [facility] Comment on above: Performed By: #### C BC #### [facility] [address] [place] [address] Hematocrit (Bld) [Volume fraction] 30.0 % Low 37.0-47.0 [facility] Comment on above: Performed By: #### C BC #### [facility] [address] [place] [address] Hemoglobin (Bld) [Mass/Vol] 10.0 g/dL Low 12.0-16.0 [facility] Comment on above: Performed By: #### C BC #### [address] [place] [address] Lymphocytes (Bld) [#/Vol] 2.3 10*3/uL Normal 1.0-4.0 [facility] Comment on above: Performed By: #### C BC #### [address] [place] [address] Lymphocytes/100 WBC (Bld) 24.5 % Normal 16-48 [facility] Comment on above: Performed By: #### C BC #### [facility] [address] [place] [address] MCV (RBC) [Entitic vol] 81.9 fL Normal 80-97 [facility] Comment on above: Performed By: #### C BC #### [address] [place] [address] MEAN CORPUSCULAR HGB 27.2 pg Normal 26.0-32.0 [facility] Comment on above: Performed By: #### C BC #### [address] [place] [address] MEAN CORPUSCULAR HGB CONC 33.2 g/dL Normal 31.0-36.0 [facility] Comment on above: Performed By: #### C BC #### [facility] [address] [place] [address] MONO DISTRIB WIDTH 15.47 Normal 0-20 [facility] Comment on above: Result Comment: For ED adult patients suspected of sepsis, MDW<=20.0 does not rule out sepsis or risk of sepsis Performed By: #### C BC #### [facility] [address] [place] [address] Monocytes (Bld) [#/Vol] 0.4 10*3/uL Normal 0.1-1.7 [facility] Comment on above: Performed By: #### C BC #### [facility] [address] [place] [address] Monocytes/100 WBC (Bld) 4.4 % Normal 3-9 [facility] Comment on above: Performed By: #### C BC #### [facility] [address] [place] [address] Platelet mean volume (Bld) [Entitic vol] 8.8 fL Normal 6.6-10.5 [facility] Comment on above: Performed By: #### C BC #### [facility] [address] [place] [address] Platelets (Bld) [#/Vol] 165 10*3/uL Normal 140-450 [facility] Comment on above: Performed By: #### C BC #### [facility] [address] [place] [address] RBC (Bld) [#/Vol] 3.67 10*6/uL Low 4.20-5.50 [facility] Comment on above: Performed By: #### C BC #### [facility] [address] [place] [address] RED CELL DISTRI WIDTH 17.2 % High 11.0-15.5 [facility] Comment on above: Performed By: #### C BC #### [facility] [address] [place] [address] WBC (Bld) [#/Vol] 9.4 10*3/uL Normal 4.0-11.0 [facility] Comment on above: Performed By: #### C BC #### [facility] [address] [place] [address] ED.PDOCon 10-14-2023 ED.PDOC BETSY EMSA Female [id number] Attending provider: SHANT HUTCHINSON [id number] Juan Tidwell 1995 28 DOS: 10/14/23 Hx/Exam [...] She states she does not have a meter reader inspector, so presents to the emergency department for [...] Psych: Euthymic, with normal affect. : RN copy center specialist present, external genitalia unremarkable. Pelvic exam reveals [...] with Dr. Jacobo who is covering the TECHNOLOGY RESOURCE TEACHER service. Patient arrives after hours, ultrasound considered but unable to be ordered due to lack of coverage, Dr. Jacobo states this can be arranged as an outpatient. She recommends 800 mcg of intravaginal Cytotec with a repeat dose in 24 hours. She will refer the patient to the [facility] office for outpatient follow-up. Return indications [...] upon t (more content not included)... Normal [facility] Laboratory studies (set)on 0 10-14-2023 Appearance (U) CLEAR [facility] Bilirubin Ql (U) NEGATIVE [facility] Color (U) [facility] Glucose Ql (U) NEGATIVE [facility] HCG Qn (U) [facility] Ketones Ql (U) NEGATIVE [facility] Leukocyte esterase Test strip Ql (U) NEGATIVE [facility] Nitrite Ql (U) NEGATIVE [facility] pH (U) 8.0 [pH] 5.0-9.0 [facility] Protein Ql (U) NEGATIVE [facility] RBC (U) [#/Vol] High NEGATIVE [facility] RBC LM.HPF (Urine sed) [#/Area] 0-2 [facility] Specific gravity (U) [Rel density] 1.020 1.003-1.035 [facility] Urine Bacteria <1+ [facility] Urine Squamous Epithelial Cells NONE-MANY [facility] Urine WBC 0-3 [facility] Urobilinogen Ql (U) 0.2 E.U./dL <=1.0 [facility] Anion gap [Moles/Vol] 8.4 mmol/L Low 11-23 [facility] Basophils (Bld) [#/Vol] 0.0 10*3/uL 0-0.1 [facility] Basophils/100 WBC (Bld) 0.30 % 0-2 [facility] Calcium [Mass/Vol] 8.4 mg/dL Low 8.5-10.1 [facility] Chloride [Moles/Vol] 112 mmol/L High 98-107 [facility] CO2 [Moles/Vol] 26.0 mmol/L 21-32 [facility] Creatinine [Mass/Vol] 0.80 mg/dL 0.55-1.02 [facility] Eosinophils (Bld) [#/Vol] 0.2 10*3/uL 0.0-1.80 [facility] Eosinophils/100 WBC (Bld) 1.7 % 0-8 [facility] Erythrocyte distribution width (RBC) [Ratio] 17.2 % High 11.0-15.5 [facility] Estimated GFR () [facility] Comment on above: THE NORMAL LEVEL OF GFR VARIES ACCORDING TO AGE, SEX, AND BODY SIZE. A GFR LEVEL OF LESS THAN 60 ML/MIN REPRESENTS LOSS OF THE ADULT LEVEL OF NORMAL KIDNEY FUNCTION. GFR/1.73 sq M.predicted among non-blacks MDRD (S/P/Bld) [Vol rate/Area] [facility] Glucose [Mass/Vol] 153 mg/dL High 70-100 [facility] Granulocytes (Bld) [#/Vol] 6.5 10*3/uL 2.2-9.1 [facility] Granulocytes/100 WBC (Bld) 69.1 % 42-80 [facility] Hematocrit (Bld) [Volume fraction] 30.0 % Low 37.0-47.0 [facility] Hemoglobin (Bld) [Mass/Vol] 10.0 g/dL Low 12.0-16.0 [facility] Lymphocytes (Bld) [#/Vol] 2.3 10*3/uL 1.0-4.0 [facility] Lymphocytes/100 WBC (Bld) 24.5 % 16-48 [facility] MCH (RBC) [Entitic mass] 27.2 pg 26.0-32.0 [facility] MCHC (RBC) [Mass/Vol] 33.2 g/dL 31.0-36.0 [facility] MCV (RBC) [Entitic vol] 81.9 fL 80-97 [facility] Monocyte distribution width Auto (Bld) [Entitic vol] 15.47 0-20 [facility] Comment on above: For ED adult patient s suspected of sepsis, MDW<=20.0 does not rule out sepsis or risk of sepsis Monocytes (Bld) [#/Vol] 0.4 10*3/uL 0.1-1.7 [facility] Monocytes/100 WBC (Bld) 4.4 % 3-9 [facility] Platelet mean volume (Bld) [Entitic vol] 8.8 fL 6.6-10.5 [facility] Platelets (Bld) [#/Vol] 165 10*3/uL 140-450 [facility] Potassium [Moles/Vol] 3.8 mmol/L 3.5-5.1 [facility] RBC (Bld) [#/Vol] 3.67 10*6/uL Low 4.20-5.50 [facility] Sodium [Moles/Vol] 142 mmol/L 136-145 [facility] Urea nitrogen [Mass/Vol] 9.0 mg/dL 7-18 [facility] WBC (Bld) [#/Vol] 9.4 10*3/uL 4.0-11.0 [facility] URINALYSISon 10-14-2023 Appearance (U) Clear Normal CLEAR [facility] Comment on above: Order Comment: What Is Urine Source? Clean Catch Mid Stream What Is Urine Source? Clean Catch Mid Stream Performed By: #### U A, UMIC #### [facility] [address] [place] [address] Hemoglobin Ql (U) 3+ Abnormal NEGATIVE [facility] Comment on above: Order Comment: What Is Urine Source? Clean Catch Mid [place] What Is Urine Source? Clean Catch Mid [place] Performed By: #### U A UMIC #### [address] [address] pH (U) 8.0 [pH] Normal 5.0-9.0 [facility] Comment on above: Order Comment: What Is Urine Source? Clean Catch [place] What Is Urine Source? Clean Catch [place] Performed By: #### U A UMIC #### [address] [address] URINE BILIRUBIN - DIPSTICK Negative Normal NEGATIVE [facility] Comment on above: Order Comment: What Is Urine Source? Clean Catch [place] What Is Urine Source? Clean Catch [place] Performed By: #### U A UMIC #### [address] [address] URINE GLUCOSE -DIPSTICK Negative Normal NEGATIVE [facility] Comment on above: Order Comment: What Is Urine Source? Clean Catch [place] What Is Urine Source? Clean Catch [place] Performed By: #### U A UMIC #### [address] [address] URINE KETONE Negative Normal NEGATIVE [facility] Comment on above: Order Comment: What Is Urine Source? Clean Catch [place] What Is Urine Source? Clean Catch [place] Performed By: #### U A UMIC #### [address] [address] URINE LEUK ESTERASE Negative Normal NEGATIVE [facility] Comment on above: Order Comment: What Is Urine Source? Clean Catch Mid [place] What Is Urine Source? Clean Catch Mid [place] Performed By: #### U A, UMIC #### [address] [address] URINE NITRITE - DIPSTICK Negative Normal NEGATIVE [facility] Comment on above: Order Comment: What Is Urine Source? Clean Catch Mid [place] What Is Urine Source? Clean Catch Mid [place] Performed By: #### U A, UMIC #### [address] [address] URINE PROTEIN - DIPSTICK Negative Normal NEGATIVE [facility] Comment on above: Order Comment: What Is Urine Source? Clean Catch [place] What Is Urine Source? Clean Catch [place] Performed By: #### U A UMIC #### [address] [address] URINE SPEC GRAVITY, DIPSTICK 1.020 Normal 1.003-1.035 [facility] Comment on above: Order Comment: What Is Urine Source? Clean Catch [place] What Is Urine Source? Clean Catch Mid [place] Performed By: #### U A, UMIC #### [address] [address] URINE UROBILINOGEN - DIPSTICK 0.2 E.U./dL Normal <=1.0 [facility] Comment on above: Order Comment: What Is Urine Source? Clean Catch [place] What Is Urine Source? Clean Catch [place] Performed By: #### U A UMIC #### [address] [address] ACETONEon 08-11-2023 ACETONE Negative Normal [facility] Comment on above: Performed By: #### M N, TRO, ACTN #### [address] [address] CBC with AUTO DIFFon 024 BAS0 % 0.90 % Normal 0-2 [facility] Comment on above: Performed By: #### C BC #### [address] [address] Basophils (Bld) [#/Vol] 0.1 10*3/uL Normal 0-0.1 [facility] Comment on above: Performed By: #### C BC #### [address] [address] Eosinophils (Bld) [#/Vol] 0.2 10*3/uL Normal 0.0-1.80 [facility] Comment on above: Performed By: #### C BC #### [address] [address] Eosinophils/100 WBC (Bld) 3.2 % Normal 0-8 [facility] Comment on above: Performed By: #### C BC #### [address] [address] GRAN # 3.8 K/uL Normal 2.2-9.1 [facility] Comment on above: Performed By: #### C BC #### [facility] [address] [place] [address] GRAN % 51.1 % Normal 42-80 [facility] Comment on above: Performed By: #### C BC #### [facility] [address] [place] [address] Hematocrit (Bld) [Volume fraction] 31.4 % Low 37.0-47.0 [facility] Comment on above: Performed By: #### C BC #### [facility] [address] [place] [address] Hemoglobin (Bld) [Mass/Vol] 10.1 g/dL Low 12.0-16.0 [facility] Comment on above: Performed By: #### C BC #### [facility] [address] [place] [address] Lymphocytes (Bld) [#/Vol] 2.9 10*3/uL Normal 1.0-4.0 [facility] Comment on above: Performed By: #### C BC #### [address] [place] [address] Lymphocytes/100 WBC (Bld) 38.9 % Normal 16-48 [facility] Comment on above: Performed By: #### C BC #### [facility] [address] [place] [address] MCV (RBC) [Entitic vol] 80.0 fL Normal 80-97 [facility] Comment on above: Performed By: #### C BC #### [facility] [address] [place] [address] MEAN CORPUSCULAR HGB 25.8 pg Low 26.0-32.0 [facility] Comment on above: Performed By: #### C BC #### [facility] [address] [place] [address] MEAN CORPUSCULAR HGB CONC 32.3 g/dL Normal 31.0-36.0 [facility] Comment on above: Performed By: #### C BC #### [facility] [address] [place] [address] MONO DISTRIB WIDTH 15.35 Normal 0-20 [facility] Comment on above: Result Comment: For ED adult patients suspected of sepsis, MDW<=20.0 does not rule out sepsis or risk of sepsis Performed By: #### C BC #### [facility] [address] [place] [address] Monocytes (Bld) [#/Vol] 0.4 10*3/uL Normal 0.1-1.7 [facility] Comment on above: Performed By: #### C BC #### [facility] [address] [place] [address] Monocytes/100 WBC (Bld) 5.9 % Normal 3-9 [facility] Comment on above: Performed By: #### C BC #### [facility] [address] [place] [address] Platelet mean volume (Bld) [Entitic vol] 8.7 fL Normal 6.6-10.5 [facility] Comment on above: Performed By: #### C BC #### [facility] [address] [place] [address] Platelets (Bld) [#/Vol] 185 10*3/uL Normal 140-450 [facility] Comment on above: Performed By: #### C BC #### [facility] [address] [place] [address] RBC (Bld) [#/Vol] 3.93 10*6/uL Low 4.20-5.50 [facility] Comment on above: Performed By: #### C BC #### [facility] [address] [place] [address] RED CELL DISTRI WIDTH 17.5 % High 11.0-15.5 [facility] Comment on above: Performed By: #### C BC #### [facility] [address] [place] [address] WBC (Bld) [#/Vol] 7.4 10*3/uL Normal 4.0-11.0 [facility] Comment on above: Performed By: #### C BC #### [facility] [address] [place] [address] COMPREHENSIVE METABOLIC PANE Sarath 08-11-2023 Albumin [Mass/Vol] 3.6 g/dL Normal 3.4-5.0 [facility] Comment on above: Performed By: #### M N, TRO, ACTN #### [facility] [address] [place] [address] Albumin/Globulin [Mass ratio] 0.9 {ratio} Low 1.1-1.8 [facility] Comment on above: Performed By: #### M GEOVANNY Johnson ACTN #### [facility] [address] [place] [address] ALP [Catalytic activity/Vol] 73 U/L Normal 45-117 [facility] Comment on above: Performed By: #### GEOVANNY Soto, ACTN #### [facility] [address] [place] [address] ALT [Catalytic activity/Vol] 17 U/L Normal 12-78 [facility] Comment on above: Performed By: #### GEOVANNY Soto ACTN #### [facility] [address] [place] [address] Anion gap [Moles/Vol] 9.2 mmol/L Low 11-23 [facility] Comment on above: Performed By: #### GEOVANNY Soto ACTN #### [facility] [address] [place] [address] AST [Catalytic activity/Vol] 9 U/L Low 15-37 [facility] Comment on above: Performed By: #### GEOVANNY Soto ACTN #### [facility] [address] [place] [address] Bilirubin [Mass/Vol] 0.3 mg/dL Normal 0.2-1.0 [facility] Comment on above: Performed By: #### GEOVANNY Soto ACTN #### [facility] [address] [place] [address] Calcium [Mass/Vol] 8.4 mg/dL Low 8.5-10.1 [facility] Comment on above: Performed By: #### GEOVANNY Soto ACTN #### [facility] [address] [place] [address] Chloride [Moles/Vol] 108 mmol/L High 98-107 [facility] Comment on above: Performed By: #### GEOVANNY Soto ACTN #### [facility] [address] [place] [address] CO2 [Moles/Vol] 23.0 mmol/L Normal 21-32 [facility] Comment on above: Performed By: #### GEOVANNY Soto ACTN #### [facility] [address] [place] [address] Creatinine [Mass/Vol] 0.70 mg/dL Normal 0.55-1.02 [facility] Comment on above: Performed By: #### M GEOVANNY Johnson, ACTN #### [facility] [address] [place] [address] GFR > 60.0 [facility] Comment on above: Performed By: #### M GEOVANNY Johnson, ACTN #### [facility] [address] [place] [address] GFR AM > 60.0 [facility] Comment on above: Result Comment: THE NORMAL LEVEL OF GFR VARIES ACCORDING TO AGE, SEX, AND BODY SIZE. A GFR LEVEL OF LESS THAN 60 ML/MIN REPRESENTS LOSS OF THE ADULT LEVEL OF NORMAL KIDNEY FUNCTION. Performed By: #### M GEOVANNY Johnson, ACTN #### [facility] [address] [place] [address] Globulin (S) [Mass/Vol] 3.8 g/dL Normal 2.5-4.6 [facility] Comment on above: Performed By: #### M GEOVANNY Johnson, ACTN #### [address] [place] [address] Glucose [Mass/Vol] 120 mg/dL High 70-100 [facility] Comment on above: Performed By: #### M GEOVANNY Johnson, ACTN #### [address] [place] [address] Potassium [Moles/Vol] 3.8 mmol/L Normal 3.5-5.1 [facility] Comment on above: Performed By: #### M GEOVANNY Johnson, ACTN #### [address] [place] [address] Protein [Mass/Vol] 7.3 g/dL Normal 6.0-8.3 [facility] Comment on above: Performed By: #### M GEOVANNY Johnson, ACTN #### [address] [place] [address] Sodium [Moles/Vol] 136 mmol/L Normal 136-145 [facility] Comment on above: Performed By: #### M GEOVANNY Johnson ACTN #### [address] [place] [address] Urea nitrogen [Mass/Vol] 7.0 mg/dL Normal 7-18 [facility] Comment on above: Performed By: #### M GEOVANNY Johnson ACTN #### [address] [place] [address] ED.PDOCon 08-11-2023 ED.PDOC BETSY MESA Female [id number] Attending provider: [facility] [id number] Vern Henry 1995 28 DOS: 08/11/23 Hx/Exam [...] note is completed with assistance of the [employer] dictation program. While every attempt has been [...] BID #[id number] cap Transmission Status: Pending to [facility] #[id number] Referrals: Alex Avila [ACTIVE] - 2-3 Days Dictated By: Vern Henry MD Dictated Date/Time:08/11/23 1120 Electronically Signed Date/Time: 08/11/23 (more content not included)... Normal [facility] HCG URINEon 08-11-2023 Beta HCG ( test) Ql (U) Negative Normal [facility] Comment on above: Order Comment: What Is Urine Source? Clean Catch Mid Stream Performed By: #### D SANA #### [address] [address] Laboratory studies (set)on 0 08-11-2023 Acetone Level [facility] Albumin [Mass/Vol] 3.6 g/dL 3.4-5.0 [facility] Albumin/Globulin [Mass ratio] 0.9 {ratio} Low 1.1-1.8 [facility] ALP [Catalytic activity/Vol] 73 U/L 45-117 [facility] ALT [Catalytic activity/Vol] 17 U/L 12-78 [facility] Anion gap [Moles/Vol] 9.2 mmol/L Low 11-23 [facility] Appearance (U) CLEAR [facility] AST [Catalytic activity/Vol] 9 U/L Low 15-37 [facility] Basophils (Bld) [#/Vol] 0.1 10*3/uL 0-0.1 [facility] Basophils/100 WBC (Bld) 0.90 % 0-2 [facility] Bilirubin [Mass/Vol] 0.3 mg/dL 0.2-1.0 [facility] Ql (U) NEGATIVE [facility] Calcium [Mass/Vol] 8.4 mg/dL Low 8.5-10.1 [facility] Chloride [Moles/Vol] 108 mmol/L High 98-107 Nishant ance [facility] CO2 [Moles/Vol] 23.0 mmol/L 21-32 [facility] Color (U) [facility] Creatinine [Mass/Vol] 0.70 mg/dL 0.55-1.02 [facility] Eosinophils (Bld) [#/Vol] 0.2 10*3/uL 0.0-1.80 [facility] Eosinophils/100 WBC (Bld) 3.2 % 0-8 [facility] Erythrocyte distribution width (RBC) [Ratio] 17.5 % High 11.0-15.5 [facility] Estimated GFR () [facility] Comment on above: THE NORMAL LEVEL OF GFR VARIES ACCORDING TO AGE, SEX, AND BODY SIZE. A GFR LEVEL OF LESS THAN 60 ML/MIN REPRESENTS LOSS OF THE ADULT LEVEL OF NORMAL KIDNEY FUNCTION. GFR/1.73 sq M.predicted among non-blacks MDRD (S/P/Bld) [Vol rate/Area] [facility] Globulin (S) [Mass/Vol] 3.8 g/dL 2.5-4.6 [facility] Glucose [Mass/Vol] 120 mg/dL High 70-100 [facility] Glucose Ql (U) NEGATIVE [facility] Granulocytes (Bld) [#/Vol] 3.8 10*3/uL 2.2-9.1 [facility] Granulocytes/100 WBC (Bld) 51.1 % 42-80 [facility] HCG Qn (U) [facility] Hematocrit (Bld) [Volume fraction] 31.4 % Low 37.0-47.0 [facility] Hemoglobin (Bld) [Mass/Vol] 10.1 g/dL Low 12.0-16.0 [facility] Ketones Ql (U) NEGATIVE [facility] Leukocyte esterase Test strip Ql (U) High NEGATIVE [facility] Lymphocytes (Bld) [#/Vol] 2.9 10*3/uL 1.0-4.0 [facility] Lymphocytes/100 WBC (Bld) 38.9 % 16-48 [facility] MCH (RBC) [Entitic mass] 25.8 pg Low 26.0-32.0 [facility] MCHC (RBC) [Mass/Vol] 32.3 g/dL 31.0-36.0 [facility] MCV (RBC) [Entitic vol] 80.0 fL 80-97 [facility] Monocyte distribution width Auto (Bld) [Entitic vol] 15.35 0-20 [facility] Comment on above: For ED adult patient s suspected of sepsis, MDW<=20.0 does not rule out sepsis or risk of sepsis Monocytes (Bld) [#/Vol] 0.4 10*3/uL 0.1-1.7 [facility] Monocytes/100 WBC (Bld) 5.9 % 3-9 [facility] Nitrite Ql (U) NEGATIVE [facility] pH (U) 6.0 [pH] 5.0-9.0 [facility] Platelet mean volume (Bld) [Entitic vol] 8.7 fL 6.6-10.5 [facility] Platelets (Bld) [#/Vol] 185 10*3/uL 140-450 [facility] Potassium [Moles/Vol] 3.8 mmol/L 3.5-5.1 [facility] Protein [Mass/Vol] 7.3 g/dL 6.0-8.3 [facility] Protein Ql (U) NEGATIVE [facility] RBC (Bld) [#/Vol] 3.93 10*6/uL Low 4.20-5.50 [facility] RBC (U) [#/Vol] NEGATIVE [facility] RBC LM.HPF (Urine sed) [#/Area] 0-2 [facility] Sodium [Moles/Vol] 136 mmol/L 136-145 [facility] Specific gravity (U) [Rel density] 1.015 1.003-1.035 [facility] Troponin 3.4 pg/mL 0-53.7 [facility] Comment on above: Troponin Reference R flip: Male: 0-78.5 pg/mL (ng/L) Female: 0-53.7 pg/mL (ng/L) Note: The new high sensitivity Troponin units are in pg/mL (ng/L) Urea nitrogen [Mass/Vol] 7.0 mg/dL 7-18 [facility] Urine Bacteria <1+ [facility] Urine Squamous Epithelial Cells NONE-MANY [facility] Urine WBC 0-3 [facility] Urobilinogen Ql (U) 0.2 E.U./dL <=1.0 Nishant ance [facility] WBC (Bld) [#/Vol] 7.4 10*3/uL 4.0-11.0 Torie glynn [facility] TROPONINon 08-11-2023 TROPONIN 3.4 pg/mL Normal 0-53.7 [facility] Comment on above: Result Comment: Trop onin Reference Range: Male: 0-78.5 pg/mL (ng/L) Female: 0-53.7 pg/mL (ng/L) Note: The new high sensitivity Troponin units are in pg/mL (ng/L) Performed By: #### M N, TRO, ACTN #### [address] [address] URINALYSIS W/ C S IF INDICAT EDon 08-11-2023 Appearance (U) Clear Normal CLEAR [facility] Comment on above: Order Comment: What Is Urine Source? Clean Catch Mid StreamWhat Is Urine Source? Clean Catch Mid Stream Performed By: #### D SANA #### [address] [address] Color (U) Lt. Yellow Normal [facility] Comment on above: Order Comment: What Is Urine Source? Clean Catch Mid StreamWhat Is Urine Source? Clean Catch Mid Stream Performed By: #### D SANA #### [address] [address] Hemoglobin Ql (U) Negative Normal NEGATIVE [facility] Comment on above: Order Comment: What Is Urine Source? Clean Catch Mid StreamWhat Is Urine Source? Clean Catch Mid Stream Performed By: #### D SANA #### [address] [address] pH (U) 6.0 [pH] Normal 5.0-9.0 [facility] Comment on above: Order Comment: What Is Urine Source? Clean Catch Mid StreamWhat Is Urine Source? Clean Catch Mid Stream Performed By: #### D SANA #### [address] [address] URINE BILIRUBIN - DIPSTICK Negative Normal NEGATIVE [facility] Comment on above: Order Comment: What Is Urine Source? Clean Catch Mid StreamWhat Is Urine Source? Clean Catch Mid [place] Performed By: #### D SANA #### [address] [address] URINE GLUCOSE - DIPSTICK Negative Normal NEGATIVE [facility] Comment on above: Order Comment: What Is Urine Source? Clean Catch Mid StreamWhat Is Urine Source? Clean Catch Mid [place] Performed By: #### D SANA #### [address] [address] URINE KETONE Negative Normal NEGATIVE [facility] Comment on above: Order Comment: What Is Urine Source? Clean Catch Mid StreamWhat Is Urine Source? Clean Catch Mid [place] Performed By: #### D SANA #### [address] [address] URINE LEUK ESTERASE 1+ Abnormal NEGATIVE [facility] Comment on above: Order Comment: What Is Urine Source? Clean Catch Mid StreamWhat Is Urine Source? Clean Catch Mid Stream Performed By: #### D SANA #### [address] [address] URINE NITRITE - DIPSTICK Negative Normal NEGATIVE [facility] Comment on above: Order Comment: What Is Urine Source? Clean Catch Mid StreamWhat Is Urine Source? Clean Catch Mid Stream Performed By: #### D SANA #### [address] [address] URINE PROTEIN - DIPSTICK Negative Normal NEGATIVE [facility] Comment on above: Order Comment: What Is Urine Source? Clean Catch Mid StreamWhat Is Urine Source? Clean Catch Mid Stream Performed By: #### D SANA #### [address] [address] URINE SPEC GRAVITY, DIPSTICK 1.015 Normal 1.003-1.035 [facility] Comment on above: Order Comment: What Is Urine Source? Clean Catch Mid StreamWhat Is Urine Source? Clean Catch Mid Stream Performed By: #### D SANA #### [address] [address] URINE UROBILINOGEN - DIPSTICK 0.2 E.U./dL Normal <=1.0 [facility] Comment on above: Order Comment: What Is Urine Source? Clean Catch Mid StreamWhat Is Urine Source? Clean Catch Mid Stream Performed By: #### D SANA #### [address] [address] URINE MICROSCOPICon 08-11-19 24 UR SQUAM EPITH MANY Normal NONE-MANY [facility] Comment on above: Performed By: #### D SANA #### [facility] [address] [place] [address] URINE BACTERIA FEW Normal <1+ [facility] Comment on above: Performed By: #### D SANA #### [facility] [address] [place] [address] URINE RBC 0-2 Normal 0-2 [facility] Comment on above: Performed By: #### D SANA #### [facility] [address] [place] [address] URINE WBC 3-5 Normal 0-3 [facility] Comment on above: Performed By: #### D SANA #### [facility] [address] [place] [address] ED.PDOCon 05-12-2023 ED.PDOC BETSY MESA Female [id number] Attending provider: [facility] [id number] Jeremy Lim 1995 28 DOS: 05/12/23 Hx/Exam [...] normal strength, no pronator drift, speech clear/fluent, 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 While every attempt has been made to dictate accurately, the system does make errors in transcribing the precise spoken word intended. 05/12/23 03:25 05/14/23 05:38 EKG - EKG EKG Interpretation: Preliminary ED Interpretation (Sinus rhythm, rate 96, CA 196, QRS 84, QT 350, normal axis. Unchanged compared to 02/13/2023.) Discharge Screen - Discharge Discharge Problem: Headache Disposition: HOME/SELF CARE Condition: Stable Instructions: DI for Headache Prescriptions: Ibuprofen 800 mg PO TID PRN 10 Days #30 tab PRN Reason: Transmission Status: Received by [facility] #[id number] Ondansetron [Zofran Odt] 4 mg PO Q6HR PRN 5 Days #20 tab PRN Reason: Transmission Status: Received by [facility] #[id number] Referrals: Call,On [Primary Care Provider] - Celso Mitchell [ACTIVE] - 3-5 Days (as needed) Dictated By: Jeremy Lim MD Dictated Date/Time:05/12/23210 Electronically Signed Date/Time: 05/14/23 0549 [facility] HEAD W/O CONTRASTon 05-12-20 HEAD W/O CONTRAST BETSY MESA Female [id number] Ordering physician: Jeremy Lim LOC:ER [id number] Attending physician: 1995 28 DO S: 05/12/23 Acc#: [id number] Exam/Proc: HEAD W/O CONTRAST Dept: COMPUTED TOMOGRAPHY [...] Date/Time: 05/12/23300 Dictated Date/time: 05/12/23257 CC: Normal [facility] Laboratory studies (set)on Appearance (U) High CLEAR [facility] Bilirubin Ql (U) NEGATIVE [facility] Color (U) [facility] Glucose Ql (U) NEGATIVE [facility] Hemoglobin Ql (U) NEGATIVE [facility] Ketones Ql (U) NEGATIVE [facility] Leukocyte esterase Test strip Ql (U) High NEGATIVE [facility] Mucus Ql (Urine sed) <1+ [facility] Nitrite Ql (U) NEGATIVE [facility] pH (U) 6.0 [pH] 5.0-9.0 [facility] Protein Ql (U) NEGATIVE [facility] RBC LM.HPF (Urine sed) [#/Area] 0-2 [facility] Specific gravity (U) [Rel density] 1.025 1.003-1.035 [facility] Urine Bacteria <1+ [facility] Comment on above: Culture Pending Urine Squamous Epithelial Cells NONE-MANY [facility] Urine WBC 0-3 [facility] Comment on above: Culture Pending Urobilinogen Ql (U) 0.2 E.U./dL <=1.0 [facility] URINALYSIS W/ C S IF INDICAT EDon 05-12-2023 Appearance (U) Sl Cloudy Abnormal CLEAR [facility] Comment on above: Order Comment: What Is Urine Source? RandomWhat Is Urine Source? Random Performed By: #### D SANA #### [address] [address] Other Comment: Cultu re PendingCulture Pending Color (U) Lt. Yellow Normal [facility] Comment on above: Order Comment: What Is Urine Source? RandomWhat Is Urine Source? Random Performed By: #### D SANA #### [address] [address] Other Comment: Cultu re PendingCulture Pending Hemoglobin Ql (U) Negative Normal NEGATIVE [facility] Comment on above: Order Comment: What Is Urine Source? RandomWhat Is Urine Source? Random Performed By: #### D SANA #### [address] [address] Other Comment: Cultu re PendingCulture Pending pH (U) 6.0 [pH] Normal 5.0-9.0 [facility] Comment on above: Order Comment: What Is Urine Source? RandomWhat Is Urine Source? Random Performed By: #### D SANA #### [address] [address] Other Comment: Cultu re PendingCulture Pending URINE BILIRUBIN - DIPSTICK Negative Normal NEGATIVE [facility] Comment on above: Order Comment: What Is Urine Source? RandomWhat Is Urine Source? Random Performed By: #### D SANA #### [address] [address] Other Comment: Cultu re PendingCulture Pending URINE GLUCOSE - DIPSTICK Negative Normal NEGATIVE [facility] Comment on above: Order Comment: What Is Urine Source? RandomWhat Is Urine Source? Random Performed By: #### D SANA #### [address] [address] Other Comment: Cultu re PendingCulture Pending URINE KETONE Negative Normal NEGATIVE [facility] Comment on above: Order Comment: What Is Urine Source? RandomWhat Is Urine Source? Random Performed By: #### D SANA #### [address] [address] Other Comment: Cultu re PendingCulture Pending URINE LEUK ESTERASE 3+ Abnormal NEGATIVE [facility] Comment on above: Order Comment: What Is Urine Source? RandomWhat Is Urine Source? Random Performed By: #### D SANA #### [address] [address] Other Comment: Cultu re PendingCulture Pending URINE NITRITE - DIPSTICK Negative Normal NEGATIVE [facility] Comment on above: Order Comment: What Is Urine Source? RandomWhat Is Urine Source? Random Performed By: #### D SANA #### [address] [address] Other Comment: Cultu re PendingCulture Pending URINE PROTEIN - DIPSTICK Negative Normal NEGATIVE [facility] Comment on above: Order Comment: What Is Urine Source? RandomWhat Is Urine Source? Random Performed By: #### D SANA #### [address] [address] Other Comment: Cultu re PendingCulture Pending URINE SPEC GRAVITY, DIPSTICK 1.025 Normal 1.003-1.035 [facility] Comment on above: Order Comment: What Is Urine Source? RandomWhat Is Urine Source? Random Performed By: #### D SANA #### [address] [address] Other Comment: Cultu re PendingCulture Pending URINE UROBILINOGEN - DIPSTICK 0.2 E.U./dL Normal <=1.0 [facility] Comment on above: Order Comment: What Is Urine Source? RandomWhat Is Urine Source? Random Performed By: #### D SANA #### [address] [address] Other Comment: Cultu re PendingCulture Pending URINE MICROSCOPICon 05-12-20 23 Mucus Ql (Urine sed) SL AMT Normal <1+ [facility] Comment on above: Performed By: #### D SANA #### [address] [address] Other Comment: Cultu re PendingCulture Pending UR SQUAM EPITH MANY Normal NONE-MANY [facility] Comment on above: Performed By: #### D SANA #### [place] [address] [place] [address] Other Comment: Cultu re PendingCulture Pending URINE BACTERIA 1+ Normal <1+ [facility] Comment on above: Performed By: #### D SANA #### [facility] [address] [place] [address] Other Comment: Cultu re PendingCulture Pending URINE RBC NONE SEEN Normal 0-2 [facility] Comment on above: Performed By: #### D SANA #### [facility] [address] [place] [address] Other Comment: Cultu re PendingCulture Pending URINE WBC 30-40 Normal 0-3 [facility] Comment on above: Performed By: #### D SANA #### [facility] [address] [place] [address] Other Comment: Cultu re PendingCulture Pending BASIC METABOLIC PANELon 07-08 06-2022 Anion gap [Moles/Vol] 10.0 mmol/L Low 11-23 [facility] Comment on above: Performed By: #### B MP #### [facility] [address] [place] [address] Calcium [Mass/Vol] 8.5 mg/dL Normal 8.5-10.1 [facility] Comment on above: Performed By: #### B MP #### [facility] [address] [facility] [place] [address] Chloride [Moles/Vol] 111 mmol/L High 98-107 [facility] Comment on above: Performed By: #### B MP #### [facility] [address] [place] [address] CO2 [Moles/Vol] 24.0 mmol/L Normal 21-32 [facility] Comment on above: Performed By: #### B MP #### [facility] [address] [place] [address] Creatinine [Mass/Vol] 0.70 mg/dL Normal 0.55-1.02 [facility] Comment on above: Performed By: #### B MP #### [facility] [address] [facility] [address] GFR > 60.0 Normal [facility] Comment on above: Performed By: #### B MP #### [facility] [address] [place] [address] GFR AM > 60.0 Normal [facility] Comment on above: Result Comment: THE NORMAL LEVEL OF GFR VARIES ACCORDING TO AGE, SEX, AND BODY SIZE. A GFR LEVEL OF LESS THAN 60 ML/MIN REPRESENTS LOSS OF THE ADULT LEVEL OF NORMAL KIDNEY FUNCTION. Performed By: #### B MP #### [address] [address] Glucose [Mass/Vol] 120 mg/dL High 70-100 [facility] Comment on above: Performed By: #### B MP #### [address] [address] Potassium [Moles/Vol] 3.6 mmol/L Normal 3.5-5.1 [facility] Comment on above: Performed By: #### B MP #### [address] [address] Sodium [Moles/Vol] 142 mmol/L Normal 136-145 [facility] Comment on above: Performed By: #### B MP #### [address] [address] Urea nitrogen [Mass/Vol] 10.0 mg/dL Normal 7-18 [facility] Comment on above: Performed By: #### B MP #### [address] [address] CBC with AUTO DIFFon 182 023 BAS0 % 0.40 % Normal 0-2 [facility] Comment on above: Performed By: #### C BC #### [address] [address] Basophils (Bld) [#/Vol] 0.0 10*3/uL Normal 0-0.1 [facility] Comment on above: Performed By: #### C BC #### [address] [place] [address] Eosinophils (Bld) [#/Vol] 0.2 10*3/uL Normal 0.0-1.80 [facility] Comment on above: Performed By: #### C BC #### [facility] [address] [place] [address] Eosinophils/100 WBC (Bld) 2.8 % Normal 0-8 [facility] Comment on above: Performed By: #### C BC #### [address] [address] GRAN # 3.9 K/uL Normal 2.2-9.1 [facility] Comment on above: Performed By: #### C BC #### [facility] [address] [place] [address] GRAN % 53.4 % Normal 42-80 [facility] Comment on above: Performed By: #### C BC #### [facility] [address] [place] [address] Hematocrit (Bld) [Volume fraction] 32.7 % Low 37.0-47.0 [facility] Comment on above: Performed By: #### C BC #### [facility] [address] [place] [address] Hemoglobin (Bld) [Mass/Vol] 10.8 g/dL Low 12.0-16.0 [facility] Comment on above: Performed By: #### C BC #### [address] [address] Lymphocytes (Bld) [#/Vol] 2.6 10*3/uL Normal 1.0-4.0 [facility] Comment on above: Performed By: #### C BC #### [address] [place] [address] Lymphocytes/100 WBC (Bld) 36.3 % Normal 16-48 [facility] Comment on above: Performed By: #### C BC #### [address] [place] [address] MCV (RBC) [Entitic vol] 79.5 fL Low 80-97 [facility] Comment on above: Performed By: #### C BC #### [address] [place] [address] MEAN CORPUSCULAR HGB 26.1 pg Normal 26.0-32.0 [facility] Comment on above: Performed By: #### C BC #### [facility] [address] [place] [address] MEAN CORPUSCULAR HGB CONC 32.9 g/dL Normal 31.0-36.0 [facility] Comment on above: Performed By: #### C BC #### [facility] [address] [place] [address] MONO DISTRIB WIDTH 15.75 Normal 0-20 [facility] Comment on above: Result Comment: For ED adult patients suspected of sepsis, MDW<=20.0 does not rule out sepsis or risk of sepsis Performed By: #### C BC #### [facility] [address] [place] [address] Monocytes (Bld) [#/Vol] 0.5 10*3/uL Normal 0.1-1.7 [facility] Comment on above: Performed By: #### C BC #### [facility] [address] [place] [address] Monocytes/100 WBC (Bld) 7.1 % Normal 3-9 [facility] Comment on above: Performed By: #### C BC #### [facility] [address] [place] [address] Platelet mean volume (Bld) [Entitic vol] 9.8 fL Normal 6.6-10.5 [facility] Comment on above: Performed By: #### C BC #### [facility] [address] [place] [address] Platelets (Bld) [#/Vol] 165 10*3/uL Normal 140-450 [facility] Comment on above: Performed By: #### C BC #### [address] [place] [address] RBC (Bld) [#/Vol] 4.12 10*6/uL Low 4.20-5.50 [facility] Comment on above: Performed By: #### C BC #### [facility] [address] [place] [address] RED CELL DISTRI WIDTH 17.7 % High 11.0-15.5 [facility] Comment on above: Performed By: #### C BC #### [facility] [address] [place] [address] WBC (Bld) [#/Vol] 7.3 10*3/uL Normal 4.0-11.0 [facility] Comment on above: Performed By: #### C BC #### [facility] [address] [place] [address] CHEST-2 VIEWon 02-13-2023 CHEST-2 VIEW BONITABETSY Female [id number] Ordering physician: Leandra Keller LOC:ER [id number] Attending physician: 1995 27 DO S: 02/13/23 [facility]#: [id number] Exam/Proc: CHEST-2 VIEW Dept: RADIOLOGY EXAMINATION: Exam [...] 02/13/2023 6:55:15 AM EST Workstation ID : [id number] REPORT SIGNATURE ON FILE Electronically Signed Date/Time: 02/13/23 0655 Dictated Date/time: 02/13/23 0652 CC: Normal [facility] D-DIMERon 02-13-2023 D-DIMER 0.48 mg/L FEU Normal 0.0-0.59 [facility] Comment on above: Result Comment: The cut-off [...] therapy. Performed By: #### D SANA #### [address] [address] ED.PDOCon 02-13-2023 ED.PDOC BETSY MESA Female [id number] Attending provider: SHANT HUTCHINSON [id number] Leandra Keller 1995 27 DOS: 02/13/23 Case [...] Dictated Date/Time:02/13/23 0549 Electronically Signed Date/Time: 02/13/2314 [facility] LOWER EXT DVT RIGHTon 2022 LOWER EXT DVT RIGHT BETSY MESA Female [id number] Ordering physician: Leandra Keller LOC:ER [id number] Attending physician: 1995 27 DO S: 02/13/23 Acc#: [id number] Exam/Proc: LOWER EXT DVT RIGHT Dept: ULTRASOUND [...] 02/13/2023 7:50:07 AM EST Workstation ID : [id number] REPORT SIGNATURE ON FILE Electronically Signed Date/Time: 02/13/23 0750 Dictated Date/time: 02/13/23 0749 CC: Normal [facility] Laboratory studies (set)on 0 02-13-2023 Anion gap [Moles/Vol] 10.0 mmol/L Low 06-21 [facility] Basophils (Bld) [#/Vol] 0.0 10*3/uL 0-0.1 [facility] Basophils/100 WBC (Bld) 0.40 % 0-2 [facility] Calcium [Mass/Vol] 8.5 mg/dL 8.5-10.1 [facility] Chloride [Moles/Vol] 111 mmol/L High 98-107 [facility] CO2 [Moles/Vol] 24.0 mmol/L 21-32 [facility] Creatinine [Mass/Vol] 0.70 mg/dL 0.55-1.02 [facility] D-Dimer, Quantitative 0.48 mg/L FEU 0.0-0.59 [facility] Comment on above: The cut-off level fo [...] therapy. Eosinophils (Bld) [#/Vol] 0.2 10*3/uL 0.0-1.80 [facility] Eosinophils/100 WBC (Bld) 2.8 % 0-8 [facility] Erythrocyte distribution width (RBC) [Ratio] 17.7 % High 11.0-15.5 [facility] Estimated GFR () [facility] Comment on above: THE NORMAL LEVEL OF GFR VARIES ACCORDING TO AGE, SEX, AND BODY SIZE. A GFR LEVEL OF LESS THAN 60 ML/MIN REPRESENTS LOSS OF THE ADULT LEVEL OF NORMAL KIDNEY FUNCTION. GFR/1.73 sq M.predicted among non-blacks MDRD (S/P/Bld) [Vol rate/Area] [facility] Glucose [Mass/Vol] 120 mg/dL High 70-100 [facility] Granulocytes (Bld) [#/Vol] 3.9 10*3/uL 2.2-9.1 [facility] Granulocytes/100 WBC (Bld) 53.4 % 42-80 [facility] Hematocrit (Bld) [Volume fraction] 32.7 % Low 37.0-47.0 [facility] Hemoglobin (Bld) [Mass/Vol] 10.8 g/dL Low 12.0-16.0 [facility] Lymphocytes (Bld) [#/Vol] 2.6 10*3/uL 1.0-4.0 [facility] Lymphocytes/100 WBC (Bld) 36.3 % 16-48 [facility] MCH (RBC) [Entitic mass] 26.1 pg 26.0-32.0 [facility] MCHC (RBC) [Mass/Vol] 32.9 g/dL 31.0-36.0 [facility] MCV (RBC) [Entitic vol] 79.5 fL Low 80-97 [facility] Monocyte distribution width Auto (Bld) [Entitic vol] 15.75 0-20 [facility] Comment on above: For ED adult patient s suspected of sepsis, MDW<=20.0 does not rule out sepsis or risk of sepsis Monocytes (Bld) [#/Vol] 0.5 10*3/uL 0.1-1.7 [facility] Monocytes/100 WBC (Bld) 7.1 % 3-9 [facility] Platelet mean volume (Bld) [Entitic vol] 9.8 fL 6.6-10.5 [facility] Platelets (Bld) [#/Vol] 165 10*3/uL 140-450 [facility] Potassium [Moles/Vol] 3.6 mmol/L 3.5-5.1 [facility] RBC (Bld) [#/Vol] 4.12 10*6/uL Low 4.20-5.50 [facility] Sodium [Moles/Vol] 142 mmol/L 136-145 [facility] Urea nitrogen [Mass/Vol] 10.0 mg/dL 718 [facility] WBC (Bld) [#/Vol] 7.3 10*3/uL 4.0-11.0 [facility] CT CHEST PULMONARY EMBOLISM W CONTRASTon [...] Beau Nunn MD 09/26/22 Final result Normal [facility] BMPon 09-26-2022 Anion gap [Moles/Vol] 11 mmol/L 9 - 17 mmol/L [facility] Calcium [Mass/Vol] 9.6 mg/dL 8.6 - 10. 4 mg/dL [facility] Chloride [Moles/Vol] 106 mmol/L 98 - 10 7 mmol/L [facility] CO2 [Moles/Vol] 22 mmol/L 20 - 31 mmol/L [facility] Creatinine [Mass/Vol] 0.59 mg/dL 0.50 - 0.90 mg/dL [facility] GFR/1.73 sq M.predicted MDRD (S/P/Bld) [Vol rate/Area] - PINF [facility] Comment on above: These results are not [...] 124 mg/dL High 70 - 99 mg/dL [facility] Interpretation and review of laboratory results Abnormal [facility] Potassium [Moles/Vol] 3.6 mmol/L Low 3.7 - 5.3 mmol/L [facility] Sodium [Moles/Vol] 139 mmol/L 135 - 144 mmol/L [facility] Urea nitrogen [Mass/Vol] 7 mg/dL 6 - 20 mg/dL [facility] Basic Metabolic Profon 09-26 Anion gap [Moles/Vol] 11 mmol/L Normal 9-17 [facility] Comment on above: Performed By: #### D CHAPINCITO, BMP, HCG, CDP, TSH, MG, TROPI #### [employer] [facility] [place] [address] Freight Coordinator: Chaitanya Mtz MD Calcium [Mass/Vol] 9.6 mg/dL Normal 8.6-10.4 [facility] Comment on above: Performed By: #### D CHAPINCITO, BMP, HCG, CDP, TSH, MG, TROPI #### [employer] [facility] [place] [address] Freight Coordinator: Chaitanya Mtz MD Chloride [Moles/Vol] 106 mmol/L Normal 98-[address] [facility] Comment on above: Performed By: #### D CHAPINCITO, BMP, HCG, CDP, TSH, MG, TROPI #### [facility] [employer] [facility] [place], [place] [id number] Freight Coordinator: Chaitanya tMz MD CO2 [Moles/Vol] 22 mmol/L Normal 20-31 [facility] Comment on above: Performed By: #### D CHAPINCITO, BMP, HCG, CDP, TSH, MG, TROPI #### [address] [id number] Freight Coordinator: Chaitanya Mtz MD Creatinine [Mass/Vol] 0.59 mg/dL Normal 0.50-0.90 [facility] Comment on above: Performed By: #### D CHAPINCITO, BMP, HCG, CDP, TSH, MG, TROPI #### [address] [address] Freight Coordinator: Chaitanya Mtz MD GFR/1.73 sq M.predicted among non-blacks MDRD (S/P/Bld) [Vol rate/Area] mL/min/{1.73_m2} Normal >60 [facility] Comment on above: Result Comment: These results [...] BMP, HCG, CDP, TSH, MG, TROPI #### [address] [id number] Freight Coordinator: Chaitanya Mtz MD Glucose [Mass/Vol] 124 mg/dL High 70-99 [facility] Comment on above: Performed By: #### D CHAPINCITO, BMP, HCG, CDP, TSH, MG, TROPI #### [facility] [address] [place] [address] Freight Coordinator: Chaitanya Mtz MD Potassium [Moles/Vol] 3.6 mmol/L Low 3.7-5.3 [facility] Comment on above: Performed By: #### D CHAPINCITO, BMP, HCG, CDP, TSH, MG, TROPI #### [facility] [place], [place] [id number] Freight Coordinator: Chaitanya Mtz MD Sodium [Moles/Vol] 139 mmol/L Normal 135-144 [facility] Comment on above: Performed By: #### D CHAPINCITO, BMP, HCG, CDP, TSH, MG, TROPI #### [facility] [place], [place] [id number] Freight Coordinator: Chaitanya Mtz MD Urea nitrogen [Mass/Vol] 7 mg/dL Normal 6-20 [facility] Comment on above: Performed By: #### D CHAPINCITO, BMP, HCG, CDP, TSH, MG, TROPI #### [facility] [address] [place] [phone] Freight Coordinator: Chaitanya Mtz MD CBC with Auto Differentialon 09-26-2022 Absolute Eos # 0.[address] [facility] Absolute Immature Granulocyte [facility] Absolute Lymph # 2.78 [facility] Absolute Fergus # 0.38 [facility] Basophils (Bld) [#/Vol] 0.03 10*3/uL [facility] Interpretation and review of laboratory results Abnormal [facility] NRBC Automated 0.0 0.0 per 100 WBC [facility] Platelet distribution width (Bld) [Ratio] 14.6 % High 11.8 - 14.4 % [facility] RBC (Bld) [#/Vol] ANISOCYTOSIS PRESENT [facility] Segmented neutrophils/100 WBC (Bld) 49 % 36 - 65 % [facility] Segs Absolute 3.16 [facility] CBC with Diffon 09-26-2022 Abs. Basophil 0.03 k/uL Normal 0.00-0.20 [facility] Comment on above: Performed By: #### D CHAPINCITO, BMP, HCG, CDP, TSH, MG, TROPI #### [address] [address] Freight Coordinator: Chaitanya Mtz MD Abs.Imm.Granulocyte <0.03 Normal 0.00-0.30 [facility] Comment on above: Performed By: #### D CHAPINCITO, BMP, HCG, CDP, TSH, MG, TROPI #### [address] [address] Freight Coordinator: Chaitanya Mtz MD Abs.Neutrophil (Seg) 3.16 k/uL Normal 1.50-8.[address] [facility] Comment on above: Performed By: #### D CHAPINCITO, BMP, HCG, CDP, TSH, MG, TROPI #### [address] [address] Freight Coordinator: Chaitanya Mtz MD Eosinophils (Bld) [#/Vol] 0.09 10*3/uL Normal 0.00-0.44 [facility] Comment on above: Performed By: #### D CHAPINCITO, BMP, HCG, CDP, TSH, MG, TROPI #### [address] [address] Freight Coordinator: Chaitanya Mtz MD Erythrocyte distribution width (RBC) [Ratio] 14.6 % High 11.8-14.4 [facility] Comment on above: Performed By: #### D CHAPINCITO, BMP, HCG, CDP, TSH, MG, TROPI #### [address] [address] Freight Coordinator: Chaitanya Mtz MD Lymphocytes (Bld) [#/Vol] 2.78 10*3/uL Normal 1.10-3.70 [facility] Comment on above: Performed By: #### D CHAPINCITO, BMP, HCG, CDP, TSH, MG, TROPI #### [facility] [employer] [address] [place] [address] Freight Coordinator: Chaitanya Mtz MD Monocytes (Bld) [#/Vol] 0.38 10*3/uL Normal 0.10-1.20 [facility] Comment on above: Performed By: #### D CHAPINCITO, BMP, HCG, CDP, TSH, MG, TROPI #### [facility] [employer] [address] [place] [address] Freight Coordinator: Chaitanya Mtz MD Neutrophil (Seg) 49 % Normal 36-65 [facility] Comment on above: Performed By: #### D CHAPINCITO, BMP, HCG, CDP, TSH, MG, TROPI #### [address] [address] Freight Coordinator: Chaitanya Mtz MD NRBC Automated 0.0 per 100 WBC Normal 0.0 [facility] Comment on above: Performed By: #### D CHAPINCITO, BMP, HCG, CDP, TSH, MG, TROPI #### [facility] [employer] [address] [place] [address] Freight Coordinator: Chaitanya Mtz MD RBC morphology finding Nom (Bld) ANISOCYTOSIS PRESENT Normal [facility] Comment on above: Performed By: #### D CHAPINCITO, BMP, HCG, CDP, TSH, MG, TROPI #### [facility] [employer] [address] [place] [address] Freight Coordinator: Chaitanya Mtz MD Basophils/100 WBC (Bld) 1 % Normal 0-2 [facility] Comment on above: Performed By: #### D CHAPINCITO, BMP, HCG, CDP, TSH, MG, TROPI #### [facility] [employer] [address] [place] [address] Freight Coordinator: Chaitanya Mtz MD Eosinophils/100 WBC (Bld) 1 % Normal 1-4 [facility] Comment on above: Performed By: #### D CHAPINCITO, BMP, HCG, CDP, TSH, MG, TROPI #### [facility] [address] [place] [address] Freight Coordinator: Chaitanya Mtz MD Hematocrit (Bld) [Volume fraction] 34.4 % Low 36.3-47.1 [facility] Comment on above: Performed By: #### D CHAPINCITO, BMP, HCG, CDP, TSH, MG, TROPI #### [facility] [address] [place] [address] Freight Coordinator: Chaitanya Mtz MD Hemoglobin (Bld) [Mass/Vol] 10.6 g/dL Low 11.9-15.1 [facility] Comment on above: Performed By: #### D CHAPINCITO, BMP, HCG, CDP, TSH, MG, TROPI #### [employer] [address] [place] [address] Freight Coordinator: Chaitanya Mtz MD Immature granulocytes/100 WBC (Bld) 0 % Normal 0 [facility] Comment on above: Performed By: #### D CHAPINCITO, BMP, HCG, CDP, TSH, MG, TROPI #### [employer] [address] [place] [address] Freight Coordinator: Chaitanya Mtz MD Lymphocytes/100 WBC (Bld) 43 % Normal 24-43 [facility] Comment on above: Performed By: #### D CHAPINCITO, BMP, HCG, CDP, TSH, MG, TROPI #### [facility] [address] [place] [address] Freight Coordinator: Chaitanya Mtz MD MCH (RBC) [Entitic mass] 26.5 pg Normal 25.2-33.5 [facility] Comment on above: Performed By: #### D CHAPINCITO, BMP, HCG, CDP, TSH, MG, TROPI #### [facility] [address] [place] [phone] Freight Coordinator: Chaitanya Mtz MD MCHC (RBC) [Mass/Vol] 30.8 g/dL Normal 28.4-34.8 [facility] Comment on above: Performed By: #### D CHAPINCITO, BMP, HCG, CDP, TSH, MG, TROPI #### [facility] [address] [place] [address] Freight Coordinator: Chaitanya Mtz MD MCV (RBC) [Entitic vol] 86.0 fL Normal 82.6-102.9 [facility] Comment on above: Performed By: #### D CHAPINCITO, BMP, HCG, CDP, TSH, MG, TROPI #### [facility] [employer] [address] [place] [address] Freight Coordinator: Chaitanya Mtz MD Monocytes/100 WBC (Bld) 6 % Normal 3-12 [facility] Comment on above: Performed By: #### D CHAPINCITO, BMP, HCG, CDP, TSH, MG, TROPI #### [employer] [address] [place] [address] Freight Coordinator: Chaitanya Mtz MD Platelet mean volume (Bld) [Entitic vol] 11.5 fL Normal 8.1-13.5 [facility] Comment on above: Performed By: #### D CHAPINCITO, BMP, HCG, CDP, TSH, MG, TROPI #### [facility] [address] [place] [address] Freight Coordinator: Chaitanya Mtz MD Platelets (Bld) [#/Vol] 201 10*3/uL Normal 138-453 [facility] Comment on above: Performed By: #### D CHAPINCITO, BMP, HCG, CDP, TSH, MG, TROPI #### [facility] [employer] [address] [place] [address] Freight Coordinator: Chaitanya Mtz MD RBC (Bld) [#/Vol] 4.00 10*6/uL Normal 3.95-5.11 [facility] Comment on above: Performed By: #### D CHAPINCITO, BMP, HCG, CDP, TSH, MG, TROPI #### [facility] [address] [place] [address] Freight Coordinator: Chaitanya Mtz MD WBC (Bld) [#/Vol] 6.5 10*3/uL Normal 3.5-11.3 [facility] Comment on above: Performed By: #### D CHAPINCITO, BMP, HCG, CDP, TSH, MG, TROPI #### [employer] [address] [place] [address] Freight Coordinator: Chaitanya Mtz MD CT CHEST PULMONARY EMBOLISM W CONTRASTon 09-26-2022 No evidence of pulmonary embolism or acute pulmonary abnormality. [facility] EXAMINATION: CTA OF THE CHEST 09/26/2022 [...] No acute bone or soft tissue abnormality. [facility] Beau Nunn MD - 09/26/2022 [...] of pulmonary embolism or acute pulmonary abnormality. [employer] Phone: Radiology Study observation (narrative) [employer] Phone: CT CHEST PULMONARY EMBOLISM W CONTRASTOrdered By: Beau Nunn on 09-26-2022 [employer] Phone: D-Dimer Teston 09-26-2022 D-Dimer Test 0.50 mg/L FEU Normal [facility] Comment on above: Result Comment: When combined [...] BMP, HCG, CDP, TSH, MG, TROPI #### [employer] [facility] [place] [address] Freight Coordinator: Chaitanya Mtz MD D-Dimer, Quantitativeon 08-31 [facility] D-dimer FEU IA (Bld) [Mass/Vol] 0.50 ug/mL mg/L FEU [facility] Comment on above: When combined with a [...] more prevalent in patients with distal DVT. [facility] HCG Qualitative, Serumon hCG Qual Negative NEGATIVE [facility] Comment on above: Specimens with hCG l evels near the threshold of the test (25 mIU/mL) may give a negative or indeterminate result. In such cases, another test should be performed with a new specimen in 48-72 hours. If early is suspected clinically in this setting, correlation with quantitative serum b-hCG level is suggested. [employer] has confirmed the use of plasma for this test. This has not been cleared or approved by the U.S. Food and Drug Administration. The FDA has determined that such clearance is not necessary. [facility] [employer] HCG Screen, Bloodon 09-26-19 23 HCG Screen, Blood Negative Normal NEG [facility] Comment on above: Result Comment: Spec imens with hCG levels near the threshold of the test (25 mIU/mL) may give a negative or indeterminate result. In such cases, another test should be performed with a new specimen in 48-72 hours. If early is suspected clinically in this setting, correlation with quantitative serum b-hCG level is suggested. [employer] has confirmed the use of plasma for this test. This has not been cleared or approved by the U.S. Food and Drug Administration. The FDA has determined that such clearance is not necessary. Performed By: #### D CHAPINCITO, BMP, HCG, CDP, TSH, MG, TROPI #### [employer] [address] [place] [address] Freight Coordinator: Chaitanya Mtz MD Magnesiumon 09-26-2022 Magnesium [Mass/Vol] 2.0 mg/dL Normal 1.6-2.[address] [facility] Comment on above: Performed By: #### D CHAPINCITO, BMP, HCG, CDP, TSH, MG, TROPI #### [employer] [facility] [place] [address] Freight Coordinator: Chaitanya Mtz MD Magnesium [Mass/Vol] 2.0 mg/dL 1.6 - 2 .6 mg/dL [facility] [employer] No Panel Informationon 09-26 [facility] [employer]ate [facility] [employer] POC Glucose Fingerstickon Glucose [Mass/Vol] 116 mg/dL High 65 - 105 mg/dL [facility] Interpretation and review of laboratory results Abnormal [facility] TSHon 09-26-2022 TSH Qn 0.37 m[IU]/L [facility] Thyroid Stim. Horm.on 2022 Thyroid Stim. Horm. 0.37 uIU/mL Normal 0.30-5.[address] [facility] Comment on above: Performed By: #### D CHAPINCITO, BMP, HCG, CDP, TSH, MG, TROPI #### [facility] [employer] [address] [place], [place] [phone] Freight Coordinator: Chaitanya Mtz MD Troponinon 09-26-2022 Troponin, High Sens <6 Normal 0-14 [facility] Comment on above: Result Comment: High Sensitivity Troponin values cannot be compared with other Troponin methodologies. Performed By: #### D CHAPINCITO, BMP, HCG, CDP, TSH, MG, TROPI #### [facility] [employer] [facility] [place] [address] Freight Coordinator: Chaitanya Mtz MD Troponin I.cardiac DL <= 0.01 ng/mL [Mass/Vol] ng/L 0 - 14 ng/L [facility] Comment on above: High Sensitivity Tro ponin values cannot be compared with other Troponin methodologies. Laboratory studies (set)on 0 09-25-2022 Troponin 3.7 pg/mL 0-53.7 [facility] Comment on above: Troponin Reference R flip: Male: 0-78.5 pg/mL (ng/L) Female: 0-53.7 pg/mL (ng/L) Note: The new high sensitivity Troponin units are in pg/mL (ng/L) Albumin [Mass/Vol] 3.7 g/dL 3.4-5.0 [facility] Albumin/Globulin [Mass ratio] 1.0 {ratio} Low 1.1-1.8 [facility] ALP [Catalytic activity/Vol] 86 U/L 45-117 [facility] ALT [Catalytic activity/Vol] 18 U/L 12-78 [facility] Anion gap [Moles/Vol] 5.9 mmol/L Low 11-23 [facility] Appearance (U) CLEAR [facility] AST [Catalytic activity/Vol] 10 U/L Low 15-37 [facility] Basophils (Bld) [#/Vol] 0.0 10*3/uL 0-0.1 [facility] Basophils/100 WBC (Bld) 0.40 % 0-2 [facility] Bilirubin [Mass/Vol] 0.4 mg/dL 0.2-1.0 [facility] Bilirubin Ql (U) NEGATIVE [facility] Calcium [Mass/Vol] 8.8 mg/dL 8.5-10.1 [facility] Chloride [Moles/Vol] 110 mmol/L High 98-107 [facility] CK [Catalytic activity/Vol] 70 U/L 26-192 [facility] CO2 [Moles/Vol] 26.0 mmol/L 21-32 [facility] Color (U) [facility] Creatinine [Mass/Vol] 0.70 mg/dL 0.55-1.02 [facility] D-Dimer, Quantitative 0.45 mg/L FEU 0.0-0.59 [facility] Comment on above: The cut-off level fo [...] therapy. Eosinophils (Bld) [#/Vol] 0.1 10*3/uL 0.0-1.80 [facility] Eosinophils/100 WBC (Bld) 2.3 % 0-8 [facility] Erythrocyte distribution width (RBC) [Ratio] 15.9 % High 11.0-15.5 [facility] Estimated GFR () [facility] Comment on above: THE NORMAL LEVEL OF GFR VARIES ACCORDING TO AGE, SEX, AND BODY SIZE. A GFR LEVEL OF LESS THAN 60 ML/MIN REPRESENTS LOSS OF THE ADULT LEVEL OF NORMAL KIDNEY FUNCTION. GFR/1.73 sq M.predicted among non-blacks MDRD (S/P/Bld) [Vol rate/Area] [facility] Globulin (S) [Mass/Vol] 3.5 g/dL 2.5-4.6 [facility] Glucose [Mass/Vol] 116 mg/dL High 70-100 [facility] Glucose Ql (U) NEGATIVE [facility] Granulocytes (Bld) [#/Vol] 3.0 10*3/uL 2.2-9.1 [facility] Granulocytes/100 WBC (Bld) 50.3 % 42-80 [facility] HCG Qn (U) [facility] Hematocrit (Bld) [Volume fraction] 32.0 % Low 37.0-47.0 [facility] Hemoglobin (Bld) [Mass/Vol] 10.4 g/dL Low 12.0-16.0 [facility] Hemoglobin Ql (U) NEGATIVE [facility] Ketones Ql (U) NEGATIVE [facility] Leukocyte esterase Test strip Ql (U) NEGATIVE [facility] Lymphocytes (Bld) [#/Vol] 2.3 10*3/uL 1.0-4.0 [facility] Lymphocytes/100 WBC (Bld) 38.5 % 16-48 [facility] MCH (RBC) [Entitic mass] 26.8 pg 26.0-32.0 [facility] MCHC (RBC) [Mass/Vol] 32.5 g/dL 31.0-36.0 All [facility] MCV (RBC) [Entitic vol] 82.2 fL 80-97 [facility] Monocyte distribution width Auto (Bld) [Entitic vol] 17.39 0-20 [facility] Comment on above: For ED adult patient s suspected of sepsis, MDW<=20.0 does not rule out sepsis or risk of sepsis Monocytes (Bld) [#/Vol] 0.5 10*3/uL 0.1-1.7 [facility] Monocytes/100 WBC (Bld) 8.5 % 3-9 [facility] Nitrite Ql (U) NEGATIVE [facility] pH (U) 6.0 [pH] 5.0-9.0 [facility] Platelet mean volume (Bld) [Entitic vol] 9.4 fL 6.6-10.5 [facility] Platelets (Bld) [#/Vol] 185 10*3/uL 140-450 [facility] Potassium [Moles/Vol] 4.1 mmol/L 3.5-5.1 [facility] Protein [Mass/Vol] 7.2 g/dL 6.0-8.3 [facility] Protein Ql (U) NEGATIVE [facility] RBC (Bld) [#/Vol] 3.89 10*6/uL Low 4.20-5.50 [facility] Sodium [Moles/Vol] 138 mmol/L 136-145 [facility] Specific gravity (U) [Rel density] 1.003-1.035 [facility] Urea nitrogen [Mass/Vol] 8.0 mg/dL 7-18 [facility] Urobilinogen Ql (U) 0.2 E.U./dL <=1.0 [facility] WBC (Bld) [#/Vol] 5.9 10*3/uL 4.0-11.0 [facility] LABORATORYOrdered By: Rupali Jones on 03-08-2022 Blood Glucose Testing Reason Routine (03/08/22 7:11 AM) [facility] Glucose [Mass/Vol] 158 mg/dL Invalid Interpretation Code 70 - 110 mg/dL [facility] LABORATORYOrdered By: Nelson Tran on 03-07-2022 Glucose [Mass/Vol] 110 mg/dL Invalid Interpretation Code 70 - 110 mg/dL [facility] Blood Glucose Testing Reason Routine (03/07/22 6:15 PM) [facility] Glucose [Mass/Vol] 210 mg/dL Invalid Interpretation Code 70 - 110 mg/dL [facility] LABORATORYOrdered By: Linh Mix on 2022 Blood Glucose Testing Reason Routine (03/06/22 8:45 PM) [facility] LABORATORYOrdered By: SYSTEM SYSTEM on 2022 Albumin [...] Invalid Interpretation Code 5.7 - 8.2 G/dL AH ADM SS Sodium [Moles/Vol] 139 mmol/L Invalid Interpretation Code 136 - 145 mEq/L AH ADM SS Urea nitrogen [Mass/Vol] 12.0 mg/dL Invalid Interpretation Code 8.0 - 22.0 mg/dL AH ADM SS Urea nitrogen/Creatinine [Mass ratio] 18.2 ratio Invalid Interpretation Code 10.0 - 22.0 ratio AH ADM SS Basophils (Bld) [#/Vol] 0.0 103/mcL Invalid Interpretation Code 0.0 - 0.3 10^3/mcL AH Workflow SS Basophils/100 WBC (Bld) 0.3 % Invalid Interpretation Code 0.0 - 2.5 % AH Workflow SS Eosinophils (Bld) [#/Vol] 0.1 103/mcL Invalid Interpretation Code 0.0 - 0.7 10^3/mcL AH Workflow SS Eosinophils/100 WBC (Bld) 0.6 % [...] 10^3/mcL AH Workflow SS Lymphocytes/100 WBC (Bld) 37.0 % [...] 10^3/mcL AH Workflow SS Monocytes/100 WBC (Bld) 7.3 % Invalid Interpretation Code 2.0 - 13.0 % AH Workflow SS Neutrophils (Bld) [#/Vol] 4.6 103/mcL Invalid Interpretation Code 2.3 - 8.1 10^3/mcL AH Workflow SS Neutrophils/100 WBC (Bld) 54.8 % [...] - 5.30 10^6/mcL AH Workflow SS WBC 8.4 103/mcL Invalid Interpretation Code 4.5 - 10.8 10^3/mcL AH Workflow SS No Panel InformationOrdered By: Jocelyn Mix on 2022 Blood Glucose Interventions Administered agent to decrease blood sugar, Notify physician 4 (03/06/22 8:45 PM) [facility] LABORATORYOrdered By: Abigail marie on 03-05-2022 [...] available with this method. Invalid Interpretation Code AH Auto Viro/Sero SS S. agalactiae DNA HUNG+probe Ql (Unsp spec) Positive 1 *ABN* (03/05/22 10:03 AM) Invalid Interpretation Code Negative AH Auto Viro/Sero SS Comment on above: Result Comment: [place] [id number] LABORATORYOrdered By: Nancy del rio on 03-05-2022 ABO and Rh group Nom (Bld) Blood group O Rh(D) positive Invalid Interpretation Code AH BB Auto SS Blood group antibody screen Ql NEG (03/05/22 10:02 AM) Invalid Interpretation Code AH BB Auto SS LABORATORYOrdered By: SYSTEM SYSTEM [...] 450 10^3/mcL Workflow SS RBC (Bld) [#/Vol] 4.07 106/mcL Invalid Interpretation Code 4.10 - 5.30 10^6/mcL Workflow SS WBC 8.7 103/mcL Invalid Interpretation Code 4.5 - 10.8 10^3/mcL Workflow SS LABORATORYOrdered By: Mando Willis on [...] Invalid Interpretation Code See CT Interp N Auto Viro/Sero SS N. gonorrhoeae DNA HUNG+probe Ql (Unsp spec) Negative (03/05/22 10:02 AM) Invalid Interpretation Code Negative Auto Viro/Sero SS N. gonorrhoeae Interp N. [...] Vaginal (03/05/22 10:02 AM) Invalid Interpretation Code AH Auto Viro/Sero SS LABORATORYOrdered By: Nancy senior on 01-18-2022 Glucose [Mass/Vol] 106 mg/dL Invalid Interpretation Code 70 - 110 mg/dL [facility] LABORATORYOrdered By: Nancy senior on 01-17-2022 Glucose [Mass/Vol] 155 mg/dL Invalid Interpretation Code 70 - 110 mg/dL [facility] Glucose [Mass/Vol] 195 mg/dL Invalid Interpretation Code 70 - 110 mg/dL [facility] LABORATORYOrdered By: Trisha Pena on 01-17-2022 ABO and Rh group Nom (Bld) Blood group O Rh(D) positive Invalid Interpretation Code BB Auto SS Blood group antibody screen Ql NEG (01/17/22 5:09 PM) Invalid Interpretation Code AH BB Auto SS LABORATORYOrdered By: SYSTEM SYSTEM [...] 10^3/mcL AH Workflow SS Lymphocytes/100 WBC (Bld) 33.1 % [...] review and authentication has not occurred. Normal [facility] ER PHYSICIAN ASSESSMENT RECORDS : FlexChartData Event Time: 12/27/2021 01:45 [facility]CA Status: Signed [facility] [place] [[id number]] Mid-Level Chart (V2b) / 1995 Chart created at 12/27/2021 01:33 by [employer] [place] Chart closed at 12/27/2021 01:57 Entry in Emergency Department at 12/26/2021 22:16, departure at 12/27/2021 02:09 Patient Name: Betsy Mesa Record Number: [id number] Date: 12/27/2021 01:33 Entered Department at: 12/26/2021 22:16 Patient Seen at: 12/27/2021 00:38 Historian: Patient PCP: [facility] [place] Chief Complaint:RIGHT CALF PAIN, 29 WEEKS /PT [...] in the area. She denies any additional [facility] PATIENT NAME: LUÍS MESAKI J [address] [place] MEDICAL REC #: [id number] [place] [id number] EMERGENCY DEPARTMENT REPORT EMERGENCY DEPARTMENT PHYSICIAN symptoms including fever, chills, chest pain, shortness of breath, nausea, vomiting. She is currently 29 weeks . She has no complaints regarding the itself. She sees [facility] for her . She has a history [...] Normal and Normal Memory/Judgment Medical Decision Making [facility] PATIENT NAME: BETSY MESA J [address] [place] MEDICAL REC #: [id number] [place] [address] EMERGENCY DEPARTMENT REPORT EMERGENCY DEPARTMENT PHYSICIAN As [...] own or she can follow-up with her TECHNOLOGY RESOURCE TEACHER to have one scheduled for her. I am more (more content not included)... Normal [facility] LABORATORYOrdered By: Whitney Chand on 05-18-2021 [...] definite cause of disease. Laboratories within the [facility] and its territories are required to report [...] NEGATIVE: No targets were detected by the [employer] Upper Respiratory Pathogens PCR Panel. _ Expected Result: Not Detected The Bio[employer] Upper Respiratory Pathogens PCR Panel can detect [...] management decisions. This assay was developed by [employer] and distributed under an Emergency Use Authorization (EUA) granted by the FDA for the qualitative detection of SARS-CoV-2 nucleic acid. Provider and patient fact sheets can be found at https://www.[facility].gov/ak nick/690939/download and https://www.[facility].gov/ak nick/496215/download. Respiratory Pathogens PCR Panel. _ Expected Result: Not Detected The [employer] Upper Respiratory Pathogens PCR Panel can detect [...] management decisions. This assay was developed by [employer] and distributed under an Emergency Use Authorization (EUA) granted by the FDA for the qualitative detection of SARS-CoV-2 nucleic acid. Provider and patient fact sheets can be found at https://www.[facility].gov/ak nick/738129/download and https://www.[facility].gov/ak nick/958218/download. Normal [facility] Comment on above: Performed By: #### B FRP2 #### [address] [id number] Chlamydia and GC PCR Panelon 03-16-2021 Chlamydia [...] as suspected child abuse or molestation. Normal [facility] Comment on above: Performed By: #### C TN #### [address] [id number] CR Chest Portableon 03-15-20 21 CR Chest Portable Patient Name: BETSY MESA Diagnostic Radiology ACCESSION EXAM DATE/TIME PROCEDURE ORDERING PROVIDER [id number] 03/15/2021 22:23 EDT CR Chest Portable AMADOR CARLITOS CPT code 91551 Reason For Exam (CR Chest Portable) cough [...] WENDELL Transcribed Date and Time: 03/15/2021 10:26 [facility] ED Provider Noteon ED Provider Note I was not involved i n this patient's care TESS Jeffers 03/15/21 5017 [facility] ED Provider Note [facility] EMERGENCY DEPT EMERGENCY [...] Gatherings with Friends and Family: ? Attends Buddhism Services: ? Active Member of Clubs or [...] nursing note reviewed. Exam conducted with a copy center specialist present. Constitutional: General: She is not in [...] No t (more content not included)... Normal [facility] XR CHEST PORTABLEOrdered By: Carlitos English on 03-15-2021 Patient Name: BETSY MESA Diagnostic Radiology ACCESSION EXAM DATE/TIME PROCEDURE ORDERING PROVIDER [id number] 03/15/2021 22:23 EDT CR Chest Portable CARLITOS ENGLISH CPT code 88833 Reason For Exam (CR Chest Portable) cough [...] Date and Time: 03/15/2021 10:26 [facility] Work Phone: [facility] Incoming Radiology Results From [facility] - 03/15/2021 10:28 PM EDT Patient Name: BETSY MESA Diagnostic Radiology ACCESSION EXAM DATE/TIME PROCEDURE ORDERING PROVIDER [id number] 03/15/2021 22:23 EDT CR Chest Portable CARLITOS ENGLISH CPT code 79486 Reason For Exam (CR Chest Portable) cough [...] Date and Time: 03/15/2021 10:26 [facility] Work Phone: [facility] Work Phone: Basic Metabolic Panelon Calcium [Mass/Vol] 9.5 mg/dL Normal 8.4-10.4 [facility] Comment on above: Performed By: #### H EMDF, TROPN, BMP3, QWAL2 #### [address] [place], [place] Anion gap [Moles/Vol] 6 mmol/L Normal 3-13 [facility] Comment on above: Performed By: #### H EMDF, TROPN, BMP3, QWAL2 #### [place] [address] [place], [place] CO2 [Moles/Vol] 23 mmol/L Normal 22-30 [facility] Comment on above: Performed By: #### H EMDF, TROPN, BMP3, QWAL2 #### [place] [address] [address] [place], [place] Creatinine [Mass/Vol] 0.72 mg/dL Normal 0.52-1.25 [facility] Comment on above: Performed By: #### H EMDF, TROPN, BMP3, QWAL2 #### [place] [address] [address] [place], [place] eGFR OTHER > 90.0 Normal >60 [facility] Comment on above: Result Comment: KDIG [...] #### H EMDF, TROPN, BMP3, QWAL2 #### [place] [address] [place] [address] GFR/1.73 sq M.predicted among blacks MDRD (S/P/Bld) [Vol rate/Area] mL/min/{1.73_m2} Normal >60 [facility] Comment on above: Performed By: #### H EMDF, TROPN, BMP3, QWAL2 #### [place] [address] [address] [place] [address] Glucose [Mass/Vol] 145 mg/dL High 70-100 [facility] Comment on above: Performed By: #### H EMDF, TROPN, BMP3, QWAL2 #### [place] [address] [place] [address] Urea nitrogen [Mass/Vol] 9 mg/dL Normal 7-20 [facility] Comment on above: Performed By: #### H EMDF, TROPN, BMP3, QWAL2 #### [place] [address] [place] [address] Chloride [Moles/Vol] 108 mmol/L High 98-107 [facility] Comment on above: Performed By: #### H EMDF, TROPN, BMP3, QWAL2 #### [place] [address] [place] [address] Potassium [Moles/Vol] 3.7 mmol/L Normal 3.5-5.1 [facility] Comment on above: Performed By: #### H EMDF, TROPN, BMP3, QWAL2 #### [place] [address] [place] [address] Sodium [Moles/Vol] 138 mmol/L Normal 135-145 [facility] Comment on above: Performed By: #### H EMDF, TROPN, BMP3, QWAL2 #### [employer] [address] [place] [phone] Basic Metabolic PanelOrdered By: Sherin Dawkins on 03-07-2021 Anion gap [Moles/Vol] 6 mmol/L 3 - 13 mmol/L [employer] Work Phone: Calcium [Mass/Vol] 9.5 mg/dL 8.4 - 10. 4 mg/dL [facility] Work Phone: Chloride [Moles/Vol] 108 mmol/L High 98 - 10 7 mmol/L [facility] Work Phone: CO2 [Moles/Vol] 23 mmol/L 22 - 30 mmol/L [facility] Work Phone: Creatinine [Mass/Vol] 0.72 mg/dL 0.52 - 1.25 mg/dL [employer] Work Phone: EGFR IF NonAfrican Taiwanese >90.0 >60 mL/min [employer] Work Phone: Comment on above: KDIGO guidelines [...] MDRD (S/P/Bld) [Vol rate/Area] mL/min/{1.73_m2} >60 mL/min [facility] Work Phone: Glucose [Mass/Vol] 145 mg/dL High 70 - 100 mg/dL [employer] Work Phone: Interpretation and review of laboratory results Abnormal [facility] Work Phone: Potassium [Moles/Vol] 3.7 mmol/L 3.5 - 5.1 mmol/L [employer] Work Phone: Sodium [Moles/Vol] 138 mmol/L 135 - 145 mmol/L [facility] Work Phone: Urea nitrogen (BldV) [Mass/Vol] 9 mg/dL 7 - 20 mg/dL [employer] Work Phone: Test Performed by [facility], [address] [place] [id number] [facility] Work Phone: [employer] Work Phone: Complete Urinalysison 2020 Amorphous Crystal Few Abnormal Negative [facility] Comment on above: Result Comment: . Performed By: #### C UA2 #### [facility] [address] [place], [place] Appearance (U) Turbid Abnormal Clear [facility] Comment on above: Result Comment: . Performed By: #### C UA2 #### [facility] [place] Bacteria Moderate Abnormal Negative [facility] Comment on above: Result Comment: . Performed By: #### C UA2 #### [facility] [place] Bilirubin,Urine Negative Normal Negative [facility] Comment on above: Result Comment: . Performed By: #### C UA2 #### [facility] [place], [place] Cast, Hyaline Negative Normal Negative [facility] Comment on above: Result Comment: . Performed By: #### C UA2 #### [facility] [place], [place] Color (U) Yellow Normal Lt. Yellow [facility] Comment on above: Result Comment: . Performed By: #### C UA2 #### [facility] [address] [place], [place] Glucose Ql (U) Normal Normal Normal (<70) [facility] Comment on above: Result Comment: . Performed By: #### C UA2 #### [place] [address] [address] [place], [place] Ketone,Urine 10 mg/dL Abnormal Negative [facility] Comment on above: Result Comment: . Performed By: #### C UA2 #### [place] [address] [address] [place], [place] Leukocytes,Urine 500 Robin/uL Abnormal Negative [facility] Comment on above: Result Comment: . Performed By: #### C UA2 #### [place] [address] [address] [place], [place] Mucous Threads Many Abnormal Negative [facility] Comment on above: Result Comment: . Performed By: #### C UA2 #### [place] [address] [address] [place], [place] Nitrites,Urine Negative Normal Negative [facility] Comment on above: Result Comment: . Performed By: #### C UA2 #### [place] [address] [address] [place], [place] Occult Blood,Urine Negative Normal Negative [facility] Comment on above: Result Comment: . Performed By: #### C UA2 #### [place] [address] [address] [place], [place] pH,Urine 6.0 Normal 5.0-8.0 [facility] Comment on above: Result Comment: . Performed By: #### C UA2 #### [place] [address] [address] [place], [place] Protein (U) [Mass/Vol] 20 mg/dL Abnormal Negative [facility] Comment on above: Result Comment: . Performed By: #### C UA2 #### [place] [address] [address] [place], [place] RBC, Urine 26 - 50 Abnormal 0-2 [facility] Comment on above: Result Comment: . Performed By: #### C UA2 #### [place] [address] [address] [place], [place] Specific Treece,Urine 1.015 Normal 1.005 - 1.030 [facility] Comment on above: Result Comment: . Performed By: #### C UA2 #### [facility] [address] [place], [place] Squamous Epithelial 26 - 50 Abnormal 3-5 [facility] Comment on above: Result Comment: . Performed By: #### C UA2 #### [facility] [address] [place], [place] Urobilinogen,Urine 2 mg/dL Abnormal Normal (0-1) [facility] Comment on above: Result Comment: . Performed By: #### C UA2 #### [facility] [address] [place], [place] WBC, Urine 26 - 50 Abnormal 0-5 [facility] Comment on above: Result Comment: . Performed By: #### C UA2 #### [place] [address] [address] [place], [place] ED Provider Noteon ED Provider Note [facility] EMERGENCY DEPT EMERGENCY DEPARTMENT ENCOUNTER Pt [...] Gatherings with Friends and Family: ? Attends Buddhism Services: ? Active Member of Clubs or [...] the Emergency (more content not included)... Normal [facility] HCG Qualitative, SerumOrdere d By: Sherin Dawkins on 03-07-2021 hCG Qual Negative [employer] Work Phone: Comment on above: Reference Range: NEG ATIVE Effective 10/10/2019, the reference interval for the qualitative test has been updated. This test detects hCG at concentrations of 10 mIU/L or greater in serum. Test Performed by [facility], [address] [place] [address] [employer] Work Phone: [employer] Work Phone: Hemogram (CBC) w/Auto DiffOr dered By: Sherin Dawkins on 03-07-2021 Absolute Baso # 0.0 10*3/uL 0.0 - 0.2 10*3/uL [employer] Work Phone: Absolute Neut # 4.4 10*3/uL 1.8 - 7.0 10*3/uL [employer] Work Phone: Basophils/100 WBC (Bld) 0.5 % 0.0 - 2.0 % [employer] Work Phone: Eosinophils (Bld) [#/Vol] 0.0 10*3/uL 0.0 - 0.5 10*3/uL [facility] Work Phone: Eosinophils/100 WBC (Bld) 0.5 % Low 1.0 - 6.0 % [facility] Work Phone: Granulocytes/100 WBC (Bld) 56.3 % 40.0 - 80.0 % [facility] Work Phone: Hematocrit (Bld) [Volume fraction] 40.6 % 35.0 - 47.0 % [employer] Work Phone: Hemoglobin.gastrointes tinal spec 1 Ql (Stl) 13.6 g/dL 11.7 - 16.0 g/dL [employer] Work Phone: Interpretation and review of laboratory results Abnormal [employer] Work Phone: Lymphocytes (Bld) [#/Vol] 2.9 10*3/uL 1.0 - 4.3 10*3/uL [employer] Work Phone: Lymphocytes/100 WBC (Bld) 36.8 % 20.0 - 40.0 % [employer] Work Phone: MCH (RBC) [Entitic mass] 30.0 pg 26.0 - 34.0 pg [facility] Work Phone: MCHC (RBC) [Mass/Vol] 33.6 % 32.0 - 36.0 % [facility] Work Phone: MCV (RBC) [Entitic vol] 89.4 fL 79.0 - 98.0 fL [employer] Work Phone: Monocytes (Bld) [#/Vol] 0.5 10*3/uL 0.0 - 0.8 10*3/uL [facility] Work Phone: Monocytes/100 WBC (Bld) 5.9 % 2.0 - 10.0 % [employer] Work Phone: Platelet distribution width (Bld) [Ratio] 14.3 % 11.5 - 14.5 % [employer] Work Phone: Platelet mean volume (Bld) [Entitic vol] 10.2 fL 7.4 - 10.4 fL [employer] Work Phone: Platelets (Bld) [#/Vol] 183 10*3/uL 140 - 440 10*3/uL [employer] Work Phone: RBC (Bld) [#/Vol] 4.54 10*6/uL 3.80 - 5.2 0 10*6/uL [employer] Work Phone: WBC (Bld) [#/Vol] 7.8 10*3/uL 3.6 - 10.7 10*3/uL [employer] Work Phone: Test Performed by [facility] [employer], [address] [place] [id number] [facility] Work Phone: [employer] Work Phone: Hemogram w/ Autodiffon 03-07 Abs Baso Cnt 0.0 10*3/uL Normal 0.0-0.2 [facility] Comment on above: Performed By: #### H EMDF, TROPN, BMP3, QWAL2 #### [facility] [employer] [address] [place] [phone] Abs Neutrophile Cnt 4.4 10*3/uL Normal 1.8-7.0 [facility] Comment on above: Performed By: #### H EMDF, TROPN, BMP3, QWAL2 #### [facility] [address] [place] [phone] Basophils/100 WBC (Bld) 0.5 % Normal 0.0-2.0 [facility] Comment on above: Performed By: #### H EMDF, TROPN, BMP3, QWAL2 #### [facility] [employer] [address] [place] [phone] Eosinophils (Bld) [#/Vol] 0.0 10*3/uL Normal 0.0-0.5 [facility] Comment on above: Performed By: #### H EMDF, TROPN, BMP3, QWAL2 #### [address] [address] [place] Eosinophils/100 WBC (Bld) 0.5 % Low 1.0-6.0 [facility] Comment on above: Performed By: #### H EMDF, TROPN, BMP3, QWAL2 #### [address] Erythrocyte distribution width (RBC) [Ratio] 14.3 % Normal 11.5-14.5 [facility] Comment on above: Performed By: #### H EMDF, TROPN, BMP3, QWAL2 #### [address] Granulocytes/100 WBC (Bld) 56.3 % Normal 40.0-80.0 [facility] Comment on above: Performed By: #### H EMDF, TROPN, BMP3, QWAL2 #### [address] Hematocrit (Bld) [Volume fraction] 40.6 % Normal 35.0-47.0 [facility] Comment on above: Performed By: #### H EMDF, TROPN, BMP3, QWAL2 #### [address] [address] [place] Hemoglobin (Bld) [Mass/Vol] 13.6 g/dL Normal 11.7-16.0 [facility] Comment on above: Performed By: #### H EMDF, TROPN, BMP3, QWAL2 #### [address] Lymphocytes (Bld) [#/Vol] 2.9 10*3/uL Normal 1.0-4.3 [facility] Comment on above: Performed By: #### H EMDF, TROPN, BMP3, QWAL2 #### [address] Lymphocytes/100 WBC (Bld) 36.8 % Normal 20.0-40.0 [facility] Comment on above: Performed By: #### H EMDF, TROPN, BMP3, QWAL2 #### [facility] [address] [place] MCH (RBC) [Entitic mass] 30.0 pg Normal 26.0-34.0 [facility] Comment on above: Performed By: #### H EMDF, TROPN, BMP3, QWAL2 #### [address] [address] [address] [place] MCHC 33.6 % Normal 32.0-36.0 [facility] Comment on above: Performed By: #### H EMDF, TROPN, BMP3, QWAL2 #### [place] [address] [address] [place] MCV (RBC) [Entitic vol] 89.4 fL Normal 79.0-98.0 [facility] Comment on above: Performed By: #### H EMDF, TROPN, BMP3, QWAL2 #### [place] [address] [address] [place] Monocytes (Bld) [#/Vol] 0.5 10*3/uL Normal 0.0-0.8 [facility] Comment on above: Performed By: #### H EMDF, TROPN, BMP3, QWAL2 #### [place] [address] [address] [place] Monocytes/100 WBC (Bld) 5.9 % Normal 2.0-10.0 [facility] Comment on above: Performed By: #### H EMDF, TROPN, BMP3, QWAL2 #### [place] [address] [address] [address] [place] Platelet mean volume (Bld) [Entitic vol] 10.2 fL Normal 7.4-10.4 [facility] Comment on above: Performed By: #### H EMDF, TROPN, BMP3, QWAL2 #### [place] [address] [address] [place] Platelets (Bld) [#/Vol] 183 10*3/uL Normal 140-440 [facility] [employer] [facility] Comment on above: Performed By: #### H EMDF, TROPN, BMP3, QWAL2 #### [facility] [address] [place] [address] RBC (Bld) [#/Vol] 4.54 10*6/uL Normal 3.80-5.20 [facility] [employer] Comment on above: Performed By: #### H EMDF, TROPN, BMP3, QWAL2 #### [facility] [facility] [address] [place] [address] WBC (Bld) [#/Vol] 7.8 10*3/uL Normal 3.6-10.7 [facility] [employer] Comment on above: Performed By: #### H EMDF, TROPN, BMP3, QWAL2 #### [facility] [address] [place] [address] Troponin Ion 03-07-2021 Troponin I.cardiac [Mass/Vol] ng/mL Normal 0.000-0.034 [facility] Comment on above: Result Comment: . Performed By: #### H EMDF, TROPN, BMP3, QWAL2 #### [facility] [address] Troponin [id number] By: Isreal Kincaid on 03-07-2021 Troponin I.cardiac [Mass/Vol] ng/mL 0.000 - 0.034 ng/mL [employer] Work Phone: Comment on above: . Test Performed by [facility], [address] [place] [id number] [facility] Work Phone: [employer] Work Phone: UrinalysisOrdered By: Sherin hanson on 03-07-2021 AMORPHOUS CRYSTAL Few Abnormal Negative /[HPF] [facility] Work Phone: Comment on above: . Appearance (U) Turbid Abnormal Clear NA [facility] Work Phone: Comment on above: . Bacteria, UA Moderate Abnormal Negative /[HPF] [facility] Work Phone: Comment on above: . Bilirubin Urine Negative Negative mg/dL [facility] Work Phone: Comment on above: . Color (U) Yellow Lt. Yellow NA [facility] Work Phone: Comment on above: . Glucose, Ur Normal Normal (<70) mg/dL [facility] Work Phone: Comment on above: . Hyaline Casts, UA Negative Negative /[LPF] [facility] Work Phone: Comment on above: . Interpretation and review of laboratory results Abnormal [facility] Work Phone: Ketones Ql (U) 10 mg/dL Abnormal Negative [facility] Work Phone: Comment on above: . LEUKOCYTES, UA 500 Abnormal Negative Robin/uL [facility] Work Phone: Comment on above: . Mucous Threads Many Abnormal Negative /[LPF] [facility] Work Phone: Comment on above: . Nitrite, Urine Negative Negative NA [facility] Work Phone: Comment on above: . Occult Blood,Urine Negative Negative mg/dL [facility] Work Phone: Comment on above: . pH (U) 6.0 [pH] [facility] Work Phone: Comment on above: . Protein (U) [Mass/Vol] 20 mg/dL Abnormal Negative [employer] Work Phone: Comment on above: . RBC, UA 26-50 Abnormal 0 - 2 /[HPF] [facility] Work Phone: Comment on above: . Specific Treece, Urine 1.015 [facility] Work Phone: Comment on above: . Squam Epithel, UA 26-50 Abnormal 3 - 5 /[HPF] [facility] Work Phone: Comment on above: . Urobilinogen, Urine 2 mg/dL Abnormal Normal (0-1) [facility] Work Phone: Comment on above: . WBC, UA 26-50 Abnormal 0 - 5 /[HPF] [facility] Work Phone: Comment on above: . Test Performed by [facility] [employer], [address] [place] [address] [facility] Work Phone: [facility] Work Phone: hCG Qual Pregon 03-07-2021 hCG Qual Preg Negative Normal [facility] Comment on above: Result Comment: Refe rence Range: NEGATIVE Effective 10/10/2019, the reference interval for the qualitative test has been updated. This test detects hCG at concentrations of 10 mIU/L or greater in serum. Performed By: #### H EMDF, TROPN, BMP3, QWAL2 #### [facility] [employer] [address] [place] [id number] Chlam/GC-DNA Amplifiedon Chlam/GC-DNA Amplified Test performed at [facility] Chlamydia trachomatis DNA NOT DETECTED Neisseria gonorrhoeae DNA NOT DETECTED Reference range NOT DETECTED Method: Strand Displacement Amplification-BD ProbeTec Assay Comment: A negative result does not preclude C.trachomatis or N. gonorrhoeae infection because results are dependent on adequate specimen collection, absence of inhibitors, and sufficient DNA to be detected. Normal [facility] Comment on above: Performed By: #### T &S #### [place] [address] HIV Screenon 01-07-2019 HIV Screen Nonreactive Normal Nonreactive [facility] Comment on above: Performed By: #### 3 HIV #### [place] [address] Hepatitis Acute Panelon 12-28 HAV Ab IgM Negative Normal Negative [facility] Comment on above: Performed By: #### H EPP #### [place] [address] HB Core Ab IgM Negative Normal Negative [facility] Comment on above: Performed By: #### H EPP #### [place] [address] Hepatitis C Ab Negative Normal Negative [facility] Comment on above: Performed By: #### H EPP #### [facility] [address] [place] [address] Hep.B Surface Ag Negative Normal Negative [facility] Comment on above: Performed By: #### H EPP #### [place] [address] Rapid Bact.Vaginosison 01-07 Rapid Bact.Vaginosis see below Normal Negative [facility] Comment on above: Result Comment: Posi tive for the presence of bacterial vaginosis. Performed By: #### R APBV #### [place] [address] Rapid Trichomonas Agon 01-07 Rapid Trichomonas Ag see below Normal Negative [facility] Comment on above: Result Comment: No T richomonas antigen present or the antigen level is below detection limit of the assay (2500 organisms/mL). Performed By: #### R APTR #### [place] [address] Rubella, Quantitativeon 12-28 Rubella, Quantitative 22.80 IU/mL Normal [facility] Comment on above: Result Comment: Not Immune <5.0 IU/mL Indeterminate >=5.0 IU/mL <=9.9 IU/ml Suggest repeat testing in 2-3 weeks Immune >=10.0 IU/mL Performed By: #### R UB3 #### [place] [address] Chlam/GC-DNA Amplifiedon Chlam/GC-DNA Amplified Test performed at [facility] Chlamydia trachomatis DNA NOT DETECTED Neisseria gonorrhoeae DNA NOT DETECTED Reference range NOT DETECTED Method: Strand Displacement Amplification-BD ProbeTec Assay Comment: A negative result does not preclude C.trachomatis or N. gonorrhoeae infection because results are dependent on adequate specimen collection, absence of inhibitors, and sufficient DNA to be detected. Normal [facility] Comment on above: Performed By: #### T &S #### [place] [address] Cult Urineon 01-06-2019 Cult Urine Test performed at [facility] ORGANISM: *Streptococcus agalactiae (Group B Strep) (ID: 1) >100,000 CFU/ml Normal [facility] Comment on above: Performed By: #### C _URI #### [facility] [address] [place] [address] Hemogramon 01-06-2019 Erythrocyte distribution width (RBC) [Ratio] 14.2 % Normal 11.7-14.4 [facility] Comment on above: Performed By: #### C BC1 #### [facility] [address] [place] [address] Hematocrit (Bld) [Volume fraction] 36.1 % Normal 34.1-44.9 [facility] Comment on above: Performed By: #### C BC1 #### [facility] [address] [place] [address] Hemoglobin (Bld) [Mass/Vol] 12.0 g/dL Normal 11.2-15.7 [facility] Comment on above: Performed By: #### C BC1 #### [facility] [address] [place] [address] MCH (RBC) [Entitic mass] 29.6 pg Normal 25.6-32.2 [facility] Comment on above: Performed By: #### C BC1 #### [facility] [address] [place] [address] MCHC (RBC) [Mass/Vol] 33.2 % Normal 31.6-34.8 [facility] Comment on above: Performed By: #### C BC1 #### [facility] [address] [place] [address] MCV (RBC) [Entitic vol] 89.1 fL Normal 79.4-94.8 [facility] Comment on above: Performed By: #### C BC1 #### [facility] [address] [place] [address] Platelet mean volume (Bld) [Entitic vol] 11.8 fL Normal 9.4-12.3 [facility] Comment on above: Performed By: #### C BC1 #### [facility] [address] [place] [address] Platelets (Bld) [#/Vol] 179 thou/cmm Low 182-369 [facility] Comment on above: Performed By: #### C BC1 #### [facility] [address] [place] [address] RBC (Bld) [#/Vol] 4.05 mil/cmm Normal 3.93-5.22 [facility] Comment on above: Performed By: #### C BC1 #### [facility] [address] [place] [address] RDW SD 46.3 fl Normal 36.4-46.3 [facility] Comment on above: Performed By: #### C BC1 #### [facility] [address] [place] [address] WBC (Bld) [#/Vol] 8.27 thou/cmm Normal 3.98-10.04 [facility] Comment on above: Performed By: #### C BC1 #### [place] [address] Pap,Cyto Gynon 01-06-2019 Pap,Cyto Hand Tacker Test performed at [place] [address] NAME: BETSY MESA REQUESTING: EKTA SANCHEZ CNM [...] 03, 2019 Page 1 of 1 Normal [facility] Comment on above: Performed By: #### T &S #### [facility] [address] [place] [address] RPRon 01-06-2019 Reagin Ab RPR Ql (S) Non-reactive Normal Nonreactive A [facility] Comment on above: Performed By: #### R CA #### [place] [address] Type and Screenon 01-06-2019 ABO group Nom (Bld) O Normal [facility] Comment on above: Performed By: #### T &S #### [place] [address] Comment Out Patient [facility] Comment on above: Performed By: #### T &S #### [place] [address] RH Type Positive [facility] Comment on above: Performed By: #### T &S #### [place] [address] HCG,Totalon 12-19-2018 HCG Qn 807890.0 m[IU]/mL Normal [facility] Comment on above: Result Comment: Male < or = 1 Non- female 1-3 Gestational Age: 0.2-1 Week 5 - 50 1-2 Weeks 50 - 500 2-3 Weeks 100 - 5000 3-4 Weeks 500 - 85711 4-5 weeks 1000 - 93253 5-6 weeks 07783 - 100,000 6-8 weeks 44038 - 200,000 2-3 months 12051 - 100,000 Performed By: #### H CG #### [place] [address] GROUP B BETA STREP SCREENon 08-10-2017 GROUP B BETA STREP SCREEN SPECIMEN NUMBER: [id number] Normal [facility] Comment on above: Result Comment: GROU P B BETA STREP SCREEN REPORT STATUS: FINAL SITE/TYPE: RECTAL/VAGINAL CULTURE RESULT(S): NO GROUP B STREPTOCOCCUS ISOLATEDPathology Laboratories, Inc. [address] [place], [place] [address]Laboratory Director: Nimesh Colon M.D.MILAGROS No. [id number] [facility] Accreditation No. [id number] HEMOGLOBIN ELECTROPHORESISon 05-08-2017 Hemoglobin mass conc (Bld) [...] performed at [facility] [address] [place] [address] CLIA Number [id number] [facility] Accreditation Number [id number] CBC W/AUTO DIFFon 05-04-2017 % NEUTROPHILS 61.4 [...] (RBC) 3.20 10*6/uL Low 4.00-5.50 Path ology [facility] Hematocrit (HCT) 29.0 % Low 36.0-48.0 Patholog y [facility] Hemoglobin mass conc (Bld) 9.5 g/dL [...] Inc WBC (Leukocytes) 8.8 10*3/uL Normal 3.7-10.8 [facility] CHLAMYDIA/N. GONORRHOEAE/T. VAGINALIS, AMPLIFIED PROBEon 05-04-2017 CHLAM TRACHOMATIS rRNA: Negative Normal NEGATIVE [facility] NEISS GONORRHOEAE rRNA Negative Normal NEGATIVE [facility] SOURCE: VAGINA Normal [facility] TRICH VAGINALIS rRNA Negative Normal NEGATIVE Path [facility] Comment on above: Result Comment: Lilliana y methodology is nucleic acid amplification by child and adolescent psychiatrist mediated amplification (TMA) utilizing the Aptima Combo 2 Assay. GLUCOSEon 05-04-2017 Glucose mass conc 114 mg/dL High 70-100 [facility] Comment on above: Result Comment: DIAG NOSTIC THRESHOLDS FOR DIABETES AND IMPAIRED FASTING GLUCOSE (IFG) FASTING PLASMA GLUCOSE NORMAL <100 MG/DL IFG 100-125 MG/DL DIABETES >/= 126 MG/DL GLUCOSE, POST GLUCOLAon DRAW TIME 1 HOUR POST-GLUCOLA Normal Patho logy [facility] Comment on above: Result Comment: DIAG NOSTIC THRESHOLDS FOR DIABETES AND IMPAIRED GLUCOSE TOLERANCE(IGT) USING ORAL GLUCOSE TOLERANCE TEST: 2-HOUR PLASMA GLUCOSE NORMAL <140 MG/DL IGT 140-199 MG/DL DIABETES >/= 200 MG/DLPathology Laboratories, Inc. [address] [place], [place] [address]Laboratory Director: David Benitez M.D.CLIA No. [id number] CAP Accreditation No. [id number] Glucose mass conc 108 mg/dL Normal <140 [facility] CYSTIC FIBROSIS GENOTYPE, 13 9 MUTATIONSon 04-05-2017 CF 139 INTERPRETATION Negative Normal [facility] MUTATION 1 Not Detected Normal [facility] POSITIVE FAMILY HISTORY? No Normal [facility] SOURCE Blood Normal [facility] Comment on above: Result Comment: Inte rpretation: This patient is negative for the cystic fibrosismutations analyzed, including the 23 mutations recommended forscreening by the [employer] and AmericanCollege of [...] 1 in 28 1 in 588 (0.2%)Ashkenazi Scientologist 1 in 29 1 in 610 (0.2%) [...] Obstetrics and Gynecology, by next-generation sequencingusing the FundriseDx Cystic Fibrosis assay. Reference sequenceis [id number]. The following mutations were analyzed:[id number] c.1A>G c.115C>T c.178G>Tc.200C>T c.223C>T c.254G>A c.262_263delTT c.273+1G>Ac.274-1G>A [...] c.3302T>A c.3310G>T c.3472C>Tc.3484C>T c.3528delC c.3587C>G c.3611G>A c.3612G>Ac.3659delC c.3717+04214Z>T c.3731G>A c.3744delA c.3752G>Ac.3773_3774insT c.3846G>A c.3873+1G>A c.3884_3885insT c.3909C>Gc.3937C>T c.3964-78_4242+577del c.4077_4080delTGTTinsAA c.4251delAConditionally reported variants:c.1210-12T[5_9] c.1516A>G c.1519A>G c.1523T>GElectronically Signed by David Nash M.D. Test performed at [facility] [address] [place] [address], [address] [place] [address] [employer] Teacher: David Nash M.D. CLIA Number [id number] [facility] Accreditation Number [id number] TESTING LOCATION [facility] Comment on above: Result Comment: Test performed at [facility] [address] [place] [address] CLIA Number [id number] HEMOGLOBIN ELECTROPHORESISon 04-03-2017 Hemoglobin mass conc (Bld) [...] performed at [facility] [address] [place] [address] CLIA Number [id number] [facility] Accreditation Number [id number] QUADRUPLE SCREENING TEST WIT H INTERPRETATIONon 04-03-2017 Calc Trisomy 18 risk 1:90532 Normal [facility] DETERMINED BY: [facility] Normal [facility] Down Syndrome risk interpret Normal [facility] Comment on above: Result Comment: --- NORMAL [...] risk age alone 1:1141 Normal [facility] Neural tube defect interpreta Normal [facility] Comment on above: Result Comment: --- NORMAL [...] a normal . Neural tube defect risk 1:53659 Normal [facility] AFP 38.8 NG/ML Normal [facility] INHIBIN A 211 PG/ML Normal [facility] Comment on above: Result Comment: Test performed at [facility] [address] [place] [address] CLIA Number [id number] [facility] Accreditation Number [id number] UE3 2.00 NG/ML Normal [facility] [...] Inc INSULIN DEP. DIABETIC NO Normal Pat [facility] INTERPRETATION: Negative Normal [facility] Comment on above: Result Comment: SCRE EN NEGATIVE FOR OPEN NEURAL TUBE DEFECT. SCREEN NEGATIVE FOR DOWN SYNDROME. SCREEN NEGATIVE FOR TRISOMY 18. SEE ANALYSIS BELOW FOR SPECIFIC RISK ASSESSMENT. NEURAL TUBE DEFECT RISK NOT INCREASED Normal [facility] NUMBER OF GESTATIONS 1 Normal Path [facility] RACE BLACK Normal [facility] SMOKER? YES Normal [facility] TRISOMY 18 ASSESSMENT NOT INCREASED Normal [facility] Weight 78.9264 kg Normal [facility] VARICELLA ZOSTER IGGon 04-03 VARICELLA ZOSTER IGG 477 INDEX Normal SEE BELOW Path [facility] Comment on above: Result Comment: INTE [...] performed at [facility] [address] [place] [address] CLIA Number [id number] [facility] Accreditation Number [id number] [facility] [address] [place], [place] [address]Laboratory Director: David Benitez M.D.CLIA No. [id number] [facility] Accreditation No. [id number] PROFILE 2 017 ABO group O Normal [facility] Comment on above: Result Comment: Test performed at [address] [address] CLIA NUMBER [id number] ANTIBODY SCREEN Negative Normal NEGATIVE [facility] Comment on above: Result Comment: Test performed at [address] [address] CLIA NUMBER [id number] Rh type Positive Normal [facility] Comment on above: Result Comment: Test performed at [address] [address] CLIA NUMBER [id number] URINE CULTUREon 03-30-2017 Urine culture, bacteria SPECIMEN NUMBER: [id number] [facility] Comment on above: [...] GONORRHOEAE rRNA Negative Normal NEGATIVE [facility] SOURCE: VAGINA Normal [facility] TRICH VAGINALIS rRNA Positive Abnormal NEGATIVE [facility] Comment on above: Result Comment: Assa y methodology is nucleic acid amplification by child and adolescent psychiatrist mediated amplification (TMA) utilizing the Aptima Combo [...] HEPATITIS B SURFACE AG Negative Normal NEGATIVE [facility] RPR SCREEN NON-REACTIVE Normal NON-REACTIVE [facility] % NEUTROPHILS 58.5 % Normal [facility] ABS BASOPHILS 0.0 K/ul Normal 0.0-0.1 [facility] Basophils/100 WBC Auto (Bld) 0.3 % Normal [facility] Comment on above: Result Comment: MIKE AL DIFFERENTIAL PERFORMED Eosinophils 0.1 10*3/uL Normal 0.1-0.4 [facility] Eosinophils/100 leukocytes 1.5 % Normal [facility] Erythrocyte distribution width Auto Ratio (RBC) 15.4 % High 10.8-14.8 [facility] Erythrocytes (RBC) 3.59 10*6/uL Low 4.00-5.50 [facility] Hematocrit (HCT) 30.9 % Low 36.0-48.0 [facility] Hemoglobin mass conc (Bld) 10.3 g/dL Low 12.0-16.0 [facility] Lymphocytes 2.2 10*3/uL Normal 0.8-5.2 [facility] Lymphocytes/100 leukocytes 32.5 % Normal [facility] MCH 28.7 pg Normal 27.0-34.0 [facility] MCHC mass conc (RBC) 33.3 g/dL Normal 31.0-36.0 [facility] MCV 86.1 fL Normal 80.-100. [facility] Monocytes 0.5 10*3/uL Normal 0.1-0.9 [facility] Monocytes/100 leukocytes 6.8 % Normal [facility] Neutrophils 3.9 10*3/uL Normal 1.3-9.1 [facility] Platelets 186 10*3/uL Normal 150.-450. [facility] WBC (Leukocytes) 6.7 10*3/uL Normal 3.7-10.8 Patholo gy [facility] TOTAL HCGon 03-29-[place] [address].0 m[IU]/mL Normal Patholog y [facility] Comment on above: Result Comment: TOTA L HCG REFERENCE RANGE: MALES <5 mIU/ml FEMALE NON- <5 INCONCLUSIVE 5-15 >15 GESTATION WEEK MEDIAN RANGE 1-2 71 16-156 2-3 607 101-4,870 3-4 5,243 1,110-31,500 4-5 26,983 2,560-82,300 5-6 52,090 23,100-151,000 6-7 93,598 27,300-233,000 7-11 117,678 20,900-291,000 11-16 40,989 6,140-103,000 16-21 20,868 4,420-80,100 21-39 15,352 2,700-78,000 Vital Signs Date Time Vital Sign Value Performing Clinician Faci litvan 05-14-2025 13:43-0400 Diastolic Blood Pressure Non-Invasive 78 mm[Hg] CASEY MOULTON MD [facility] 05-14-2025 13:43-0400 Heart rate 67 /min CASEY MOULTON MD [facility] 05-14-2025 13:43-0400 Systolic Blood Pressure Non-Invasive 122 mm[Hg] CASEY MOULTON MD [facility] 05-14-2025 13:04-0400 Diastolic Blood Pressure Non-Invasive 74 mm[Hg] CASEY MOULTON MD [facility] 05-14-2025 13:04-0400 Heart rate 78 /min CASEY MOULTON MD [facility] 05-14-2025 13:04-0400 Respiratory rate 16 /min CASEY MOULTON MD [facility] 05-14-2025 13:04-0400 Systolic Blood Pressure Non-Invasive 108 mm[Hg] CASEY MOULTON MD [facility] 05-14-2025 12:50-0400 Respiratory rate 16 /min CASEY MOULTON MD [facility] 05-14-2025 12:42-0400 Diastolic Blood Pressure Non-Invasive 77 mm[Hg] CASEY MOULTON MD [facility] 05-14-2025 12:42-0400 Heart rate 68 /min CASEY MOULTON MD [facility] 05-14-2025 12:42-0400 Respiratory rate 15 /min CASEY MOULTON MD [facility] 05-14-2025 12:42-0400 Systolic Blood Pressure Non-Invasive 109 mm[Hg] CASEY MOULTON MD [facility] 05-14-2025 12:06-0400 Body temperature 97.34 [degF] CASEY MOULTON MD [facility] 05-14-2025 12:05-0400 Respiratory Rate - Anes 0 br/min CASEY MOULTON MD [facility] 05-14-2025 12:00-0400 Respiratory Rate - Anes 16 br/min CASEY MOULTON MD [facility] 05-14-2025 11:55-0400 Respiratory Rate - Anes 18 br/min CASEY MOULTON MD [facility] 05-14-2025 11:38-0400 Body height 177.8 cm CASEY MOULTON MD [facility] 05-14-2025 11:38-0400 Body temperature 97.88 [degF] CASEY MOULTON MD [facility] 05-14-2025 11:38-0400 Body weight 107.8 kg CASEY MOULTON MD [facility] 05-14-2025 11:38-0400 Heart rate 89 /min CASEY MOULTON MD [facility] 05-10-2025 03:54-0400 Body temperature 97.1 [degF] Dr. Nelson Ulloa DO Work Phone: [facility] 05-10-2025 03:54-0400 Diastolic blood pressure 91 mm[Hg] Dr. Nelson Ulloa DO Work Phone: [facility] 05-10-2025 03:54-0400 Heart rate 77 /min Dr. Nelson Ulloa DO Work Phone: [facility] 05-10-2025 03:54-0400 Respiratory rate 16 /min Dr. Nelson Ulloa DO Work Phone: [facility] 05-10-2025 03:54-0400 SaO2% (BldA) [Mass fraction] 99 % Dr. Nelson Ulloa DO Work Phone: [facility] 05-10-2025 03:54-0400 Systolic blood pressure 140 mm[Hg] Dr. Nelson Ulloa DO Work Phone: [facility] 05-10-2025 01:59-0400 Body height 177.[address] Nelson Ulloa DO Work Phone: [facility] 05-10-2025 01:59-0400 Body mass index (BMI) [Ratio] 34.7 kg/m2 Dr. Nelson Ulloa DO Work Phone: [facility] 05-10-2025 01:59-0400 Body weight 109.[address] Nelson Ulloa DO Work Phone: [facility] 05-06-2025 22:07-0400 Body temperature 97.2 [degF] No Primary Care Physician [facility] 05-06-2025 22:07-0400 Diastolic blood pressure 87 mm[Hg] No Primary Care Physician [facility] 05-06-2025 22:07-0400 Heart rate 74 /min No Primary Care Physician [facility] 05-06-2025 22:07-0400 Respiratory rate 16 /min No Primary Care Physician [facility] 05-06-2025 22:07-0400 SaO2% (BldA) [Mass fraction] 100 % No Primary Care Physician [facility] 05-06-2025 22:07-0400 Systolic blood pressure 133 mm[Hg] No Primary Care Physician [facility] 05-06-2025 18:00-0400 Body height 177.8 cm No Primary Care Physician [facility] 05-06-2025 18:00-0400 Body mass index (BMI) [Ratio] 33.8 kg/m2 No Primary Care Physician [facility] 05-06-2025 18:00-0400 Body weight 106.91 kg No Primary Care Physician [facility] 05-03-2025 23:35-0400 Body temperature 97.6 [degF] No Primary Care Physician [facility] 05-03-2025 23:35-0400 Diastolic blood pressure 87 mm[Hg] No Primary Care Physician [facility] 05-03-2025 23:35-0400 Heart rate 77 /min No Primary Care Physician [facility] 05-03-2025 23:35-0400 Respiratory rate 18 /min No Primary Care Physician [facility] 05-03-2025 23:35-0400 SaO2% (BldA) [Mass fraction] 100 % No Primary Care Physician [facility] 05-03-2025 23:35-0400 Systolic blood pressure 132 mm[Hg] No Primary Care Physician [facility] 05-03-2025 19:30-0400 Body height 177.8 cm No Primary Care Physician [facility] 05-03-2025 19:30-0400 Body mass index (BMI) [Ratio] 34.4 kg/m2 No Primary Care Physician [facility] 05-03-2025 19:30-0400 Body weight 108.9 kg No Primary Care Physician [facility] 03-23-2025 01:40-0400 Body temperature 99 [degF] No Primary Care Physician [facility] 03-23-2025 01:40-0400 Diastolic blood pressure 88 mm[Hg] No Primary Care Physician [facility] 03-23-2025 01:40-0400 Heart rate 80 /min No Primary Care Physician [facility] 03-23-2025 01:40-0400 Respiratory rate 16 /min No Primary Care Physician [facility] 03-23-2025 01:40-0400 SaO2% (BldA) [Mass fraction] 100 % No Primary Care Physician [facility] 03-23-2025 01:40-0400 Systolic blood pressure 128 mm[Hg] No Primary Care Physician [facility] 03-22-2025 23:22-0400 Body height 177.8 cm No Primary Care Physician [facility] 03-22-2025 23:22-0400 Body mass index (BMI) [Ratio] 34.2 kg/m2 No Primary Care Physician [facility] 03-22-2025 23:22-0400 Body weight 108.2 kg No Primary Care Physician [facility] 02-05-2025 02:56-0400 Body temperature 97.4 [degF] No Primary Care Physician [facility] 02-05-2025 02:56-0400 Diastolic blood pressure 83 mm[Hg] No Primary Care Physician [facility] 02-05-2025 02:56-0400 Heart rate 68 /min No Primary Care Physician [facility] 02-05-2025 02:56-0400 Respiratory rate 16 /min No Primary Care Physician [facility] 02-05-2025 02:56-0400 SaO2% (BldA) [Mass fraction] 99 % No Primary Care Physician [facility] 02-05-2025 02:56-0400 Systolic blood pressure 125 mm[Hg] No Primary Care Physician [facility] 02-05-2025 01:12-0400 Body height 177.8 cm No Primary Care Physician [facility] 02-05-2025 01:12-0400 Body mass index (BMI) [Ratio] 33.3 kg/m2 No Primary Care Physician [facility] 02-05-2025 01:12-0400 Body weight 105.2 kg No Primary Care Physician [facility] 01-12-2025 01:55-0400 Body temperature 98.1 [degF] No Primary Care Physician [facility] 01-12-2025 01:55-0400 Diastolic blood pressure 73 mm[Hg] No Primary Care Physician [facility] 01-12-2025 01:55-0400 Heart rate 78 /min No Primary Care Physician [facility] 01-12-2025 01:55-0400 Respiratory rate 14 /min No Primary Care Physician [facility] 01-12-2025 01:55-0400 SaO2% (BldA) [Mass fraction] 100 % No Primary Care Physician [facility] 01-12-2025 01:55-0400 Systolic blood pressure 122 mm[Hg] No Primary Care Physician [facility] 01-11-2025 21:48-0400 Body height 177.8 cm No Primary Care Physician [facility] 01-11-2025 21:48-0400 Body mass index (BMI) [Ratio] 33.3 kg/m2 No Primary Care Physician [facility] 01-11-2025 21:48-0400 Body weight 105.23 kg No Primary Care Physician [facility] 09-30-2024 11:44-0500 Diastolic Blood Pressure Non-Invasive 93 mm[Hg] MARLENA BRITTNEYEverpay [facility] 09-30-2024 11:44-0500 Heart rate 84 /min MARLENA [employer] [facility] 09-30-2024 11:44-0500 Respiratory rate 16 /min MARLENA [employer] [facility] 09-30-2024 11:44-0500 Systolic Blood Pressure Non-Invasive 137 mm[Hg] MARLENA NEVEST DO [facility] 09-30-2024 10:12-0500 Blood Pressure Location MARLENA NEVEST DO [facility] 09-30-2024 10:12-0500 Blood Pressure Method MARLENA NEVEST [facility] 09-30-2024 10:12-0500 Body temperature 97.88 [degF] MARLENA LOWERY DO [facility] 09-30-2024 10:12-0500 Diastolic Blood Pressure Non-Invasive 78 mm[Hg] MARLENA LOWERY DO [facility] 09-30-2024 10:12-0500 Heart rate 94 /min MARLENA NEVEST DO [facility] 09-30-2024 10:12-0500 Respiratory rate 18 /min MARLENA LOWERY DO [facility] 09-30-2024 10:12-0500 Systolic Blood Pressure Non-Invasive 128 mm[Hg] MARLENA LOWERY DO [facility] 05-06-2024 15:11-0400 Body mass index (BMI) [Ratio] 30.2 kg/m2 Leela Currie MD Work Phone: [facility] 05-06-2024 15:11-0400 Body weight 96.16 kg Leela Currie MD Work Phone: [facility] 05-06-2024 15:11-0400 Diastolic blood pressure 70 mm[Hg] Leela Currie MD Work Phone: [facility] 05-06-2024 15:11-0400 Heart rate 102 /min Leela Currie MD Work Phone: [facility] 05-06-2024 15:11-0400 Respiratory rate 18 /min Leela Currie MD Work Phone: [facility] 05-06-2024 15:11-0400 Systolic blood pressure 108 mm[Hg] Leela Currie MD Work Phone: [facility] 05-01-2024 13:45-0400 Body mass index (BMI) [Ratio] 30.49 kg/m2 Jose Plotts SENIOR TECHNICAL PROJECT MANAGER.CNM Work Phone: [facility] 05-01-2024 13:45-0400 Body weight 97.07 kg Jose Plotts SENIOR TECHNICAL PROJECT MANAGER.CNM Work Phone: [facility] 05-01-2024 13:45-0400 Diastolic blood pressure 70 mm[Hg] Jose Plotts SENIOR TECHNICAL PROJECT MANAGER.CNM Work Phone: [facility] 05-01-2024 13:45-0400 Systolic blood pressure 108 mm[Hg] Jose Plotts SENIOR TECHNICAL PROJECT MANAGER.CNM Work Phone: [facility] 04-28-2024 11:36-0400 Body height 178.4 cm Sushil Haury SENIOR TECHNICAL PROJECT MANAGER.[employer] LEVEL GAME DESIGNER Work Phone: [facility] 04-28-2024 11:36-0400 Body mass index (BMI) [Ratio] 30.72 kg/m2 Sushil Haury SENIOR TECHNICAL PROJECT MANAGER.MID LEVEL GAME DESIGNER Work Phone: [facility] 04-28-2024 11:36-0400 Body weight 97.8 kg Sushil Haury SENIOR TECHNICAL PROJECT MANAGER.MID LEVEL GAME DESIGNER Work Phone: [facility] 04-28-2024 11:36-0400 Diastolic blood pressure 68 mm[Hg] Sushil Haury SENIOR TECHNICAL PROJECT MANAGER.MID LEVEL GAME DESIGNER Work Phone: [facility] 04-28-2024 11:36-0400 Systolic blood pressure 116 mm[Hg] Sushil Haury SENIOR TECHNICAL PROJECT MANAGER.MID LEVEL GAME DESIGNER Work Phone: [facility] 10-14-2023 22:57-0400 Body temperature 98.4 [degF] 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 [facility] 10-14-2023 22:57-0400 Body weight 104.326 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 [facility] 10-14-2023 22:57-0400 Diastolic blood pressure 88 mm[Hg] 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 [facility] 10-14-2023 22:57-0400 Heart rate 94 /min 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 [facility] 10-14-2023 22:57-0400 Respiratory rate 16 /min 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 [facility] 10-14-2023 22:57-0400 SaO2% (BldA) [Mass fraction] 100 % 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 [facility] 10-14-2023 22:57-0400 Systolic blood pressure 141 mm[Hg] 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 [facility] 08-11-2023 13:10-0500 Body temperature 97.1 [degF] 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 [facility] 08-11-2023 13:10-0500 Body weight 102.058 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 [facility] 08-11-2023 13:10-0500 Diastolic blood pressure 94 mm[Hg] 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 [facility] 08-11-2023 13:10-0500 Heart rate 91 /min 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 [facility] 08-11-2023 13:10-0500 Respiratory rate 16 /min 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 [facility] 08-11-2023 13:10-0500 SaO2% (BldA) [Mass fraction] 100 % 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 [facility] 08-11-2023 13:10-0500 Systolic blood pressure 126 mm[Hg] 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 [facility] 05-12-2023 03:52-0400 Heart rate 104 /min 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 [facility] 05-12-2023 03:47-0400 Body temperature 97.7 [degF] 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 [facility] 05-12-2023 03:47-0400 Body weight 97.795 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 [facility] 05-12-2023 03:47-0400 Diastolic blood pressure 106 mm[Hg] 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 [facility] 05-12-2023 03:47-0400 Respiratory rate 18 /min 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 [facility] 05-12-2023 03:47-0400 SaO2% (BldA) [Mass fraction] 100 % 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 [facility] 05-12-2023 03:47-0400 Systolic blood pressure 148 mm[Hg] 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 [facility] 09-26-2022 23:37-0500 Respiratory rate 18 /min Marcelo Robles MD [facility] [employer] 09-26-2022 21:40-0500 SaO2% (BldA) [Mass fraction] 96 % Marcelo Robles MD Work Phone[facility] [employer] 09-26-2022 20:45-0500 Diastolic blood pressure 93 mm[Hg] Marcelo Robles MD [facility] Phone[facility] [employer] 09-26-2022 20:45-0500 Systolic blood pressure 135 mm[Hg] Marcelo Robles MD Work Phone: [facility] [employer] 09-26-2022 20:18-0500 Body height 170.2 cm Marcelo Robles MD Work Phone: [facility] [employer] 09-26-2022 20:18-0500 Body mass index (BMI) [Ratio] 33.05 kg/m2 Marcelo Robles MD Work Phone: [facility] [employer] 09-26-2022 20:18-0500 Body weight 95.71 kg Marcelo Robles MD Work Phone: [facility] 09-26-2022 20:04-0500 Body temperature 98.4 [degF] Marcelo Robles MD Work Phone: [facility] 09-26-2022 20:04-0500 Heart rate 114 /min Marcelo Robles MD Work Phone: [facility] 09-25-2022 14:15-0500 Diastolic blood pressure 81 mm[Hg] Tod Filmer [facility] 09-25-2022 14:15-0500 Heart rate 80 /min Tod Filmer [facility] 09-25-2022 14:15-0500 Respiratory rate 16 /min Tod Filmer [facility] 09-25-2022 14:15-0500 SaO2% (BldA) [Mass fraction] 98 % Tod Filmer [facility] 09-25-2022 14:15-0500 Systolic blood pressure 123 mm[Hg] Tod Filmer [facility] 09-25-2022 12:15-0500 Body temperature 96.9 [degF] Tod Filmer [facility] 09-25-2022 12:15-0500 Body weight 96.61 kg Tod Filmer [facility] 03-08-2022 10:00-0400 Heart rate 87 /min JOSSIE HAYES MD [facility] 03-08-2022 10:00-0400 Mean blood pressure 100 mm[Hg] JOSSIE HAYES MD [address] [place] [address] 03-08-2022 10:00-0400 Systolic blood pressure 134 mm[Hg] JOSSIE HAYES MD [address] [place] [address] 03-08-2022 07:11-0400 Body temperature 98.06 [degF] JOSSIE HAYES MD [address] [place] [address] 03-08-2022 07:11-0400 Diastolic blood pressure 97 mm[Hg] JOSSIE HAYES MD [address] [place] [address] 03-08-2022 07:11-0400 Heart rate 81 /min JOSSIE HAYES MD [address] [place] [address] 03-08-2022 07:11-0400 Mean blood pressure 112 mm[Hg] JOSSIE HAYES MD [address] [place] [address] 03-08-2022 07:11-0400 Respiratory rate 18 /min JOSSIE HAYES MD [address] [place] [address] 03-08-2022 07:11-0400 Systolic blood pressure 141 mm[Hg] JOSSIE HAYES MD [address] [place] [address] 03-08-2022 04:43-0400 Diastolic blood pressure 83 mm[Hg] JOSSIE HAYES MD [address] [place] [address] 03-08-2022 04:43-0400 Heart rate 75 /min JOSSIE HAYES MD [address] [place] [address] 03-08-2022 04:43-0400 Mean blood pressure 101 mm[Hg] JOSSIE HAYES MD [address] [place] [address] 03-08-2022 04:43-0400 Respiratory rate 16 /min JOSSIE HAYES MD [address] [place] [address] 03-08-2022 04:43-0400 Systolic blood pressure 136 mm[Hg] JOSSIE HAYES MD [facility] 03-07-2022 23:00-0400 Body temperature 98.42 [degF] JOSSIE HAYES MD [address] [place] [address] 03-07-2022 23:00-0400 Respiratory rate 16 /min JOSSIE HAYES MD [address] [place] [address] 03-07-2022 16:57-0400 Body temperature 98.6 [degF] JOSSIE HAYES MD [address] [place] [address] 03-05-2022 10:05-0400 Body height 177.8 cm JOSSIE HAYES MD [address] [place] [address] 03-05-2022 10:05-0400 Body weight 109.1 kg JOSSIE HAYES MD [address] [place] [address] 03-05-2022 10:05-0400 Body weight 34.51 kg/m2 JOSSIE HAYES MD [address] [place] [address] 01-18-2022 03:00-0400 Body temperature 98.06 [degF] MICHI VASSAS DO [facility] 01-18-2022 03:00-0400 Diastolic blood pressure 64 mm[Hg] MICHI VASSAS DO [facility] 01-18-2022 03:00-0400 Heart rate 79 /min MICHI VASSAS DO [facility] 01-18-2022 03:00-0400 Mean blood pressure 83 mm[Hg] MICHI VASSAS DO [facility] 01-18-2022 03:00-0400 Respiratory rate 16 /min MICHI VASSAS DO [facility] 01-18-2022 03:00-0400 Systolic blood pressure 120 mm[Hg] MICHI VASSAS DO [facility] 01-17-2022 23:00-0400 Body temperature 97.88 [degF] MICHI VASSAS DO [facility] 01-17-2022 23:00-0400 Diastolic blood pressure 79 mm[Hg] MICHI VASSAS DO [facility] 01-17-2022 23:00-0400 Heart rate 98 /min MICHI VASSAS DO [facility] 01-17-2022 23:00-0400 Mean blood pressure 94 mm[Hg] MICHI VASSAS DO [facility] 01-17-2022 23:00-0400 Respiratory rate 14 /min MICHI VASSAS DO [facility] 01-17-2022 23:00-0400 Systolic blood pressure 123 mm[Hg] MICHI VASSAS DO [facility] 01-17-2022 19:30-0400 Body temperature 98.06 [degF] MICHI VASSAS DO [facility] 01-17-2022 19:30-0400 Diastolic blood pressure 60 mm[Hg] MICHI VASSAS DO [facility] 01-17-2022 19:30-0400 Heart rate 99 /min MICHI VASSAS DO [facility] 01-17-2022 19:30-0400 Mean blood pressure 79 mm[Hg] MICHI VASSAS DO [facility] 01-17-2022 19:30-0400 Respiratory rate 16 /min MICHI VASSAS DO [facility] 01-17-2022 19:30-0400 Systolic blood pressure 118 mm[Hg] MICHI VASSAS DO [facility] 01-17-2022 17:06-0400 Body height 177.8 cm MICHI VASSAS DO [facility] 01-17-2022 17:06-0400 Body weight 110 kg MICHI VASSAS DO [facility] 01-17-2022 17:06-0400 Body weight 34.8 kg/m2 MICHI VASSAS DO [facility] 01-17-2022 14:42-0400 Body height 177.8 cm MICHI VASSAS DO [facility] 01-17-2022 14:42-0400 Body weight 110 kg MICHI VASSAS DO [facility] 01-17-2022 14:42-0400 Body weight 34.8 kg/m2 MICHI VASSAS DO [facility] 12-06-2021 15:54-0400 Body height 177.8 cm GATITO KITKO DO [facility] 12-06-2021 15:54-0400 Body weight 114 kg GATITO ODOM DO [facility] 12-06-2021 15:54-0400 Body weight 36.06 kg/m2 GATITO ODOM DO [facility] 08-07-2021 16:36-0500 Body temperature 98.06 [degF] NANDA TOLEDO DO [facility] 08-07-2021 16:36-0500 Diastolic blood pressure 87 mm[Hg] NANDA TOLEDO DO [facility] 08-07-2021 16:36-0500 Heart rate 95 /min NANDA TOLEDO DO [facility] 08-07-2021 16:36-0500 Respiratory rate 16 /min NANDA TOLEDO DO [facility] 08-07-2021 16:36-0500 Systolic blood pressure 129 mm[Hg] NANDA TOLEDO DO [facility] 05-18-2021 12:24-0400 Body temperature 98.24 [degF] DR JOSÉ MIGUEL MAGALLANES MD [facility] 05-18-2021 12:24-0400 Diastolic blood pressure 64 mm[Hg] DR JOSÉ MIGUEL MAGALLANES MD [facility] 05-18-2021 12:24-0400 Heart rate 78 /min DR JOSÉ MIGUEL MAGALLANES MD [facility] 05-18-2021 12:24-0400 Respiratory rate 18 /min DR JOSÉ MIGUEL MAGALLANES MD [facility] 05-18-2021 12:24-0400 Systolic blood pressure 103 mm[Hg] DR JOSÉ MIGUEL MAGALLANES MD [facility] 03-15-2021 22:43-0400 Diastolic blood pressure 77 mm[Hg] [employer] Work Phone: 03-15-2021 22:43-0400 Heart rate 97 /min [employer] Work Phone: 03-15-2021 22:43-0400 Respiratory rate 16 /min [employer] Work Phone: 03-15-2021 22:43-0400 SaO2% (BldA) [Mass fraction] 99 % [employer] Work Phone: 03-15-2021 22:43-0400 Systolic blood pressure 127 mm[Hg] [employer] Work Phone: 03-15-2021 20:21-0400 Body temperature 97.81 [degF] [facility] Work Phone: 03-15-2021 20:20-0400 Body height 177.8 cm [facility] Work Phone: 03-15-2021 20:20-0400 Body mass index (BMI) [Ratio] 25.83 kg/m2 [facility] Work Phone: 03-15-2021 20:20-0400 Body weight 81.65 kg [facility] Work Phone: 03-07-2021 02:39-0400 Diastolic blood pressure 80 mm[Hg] Isreal Kincaid MD Work Phone: [facility] Work Phone: 03-07-2021 02:39-0400 Heart rate 99 /min Isreal Kincaid MD Work Phone: [facility] Work Phone: 03-07-2021 02:39-0400 Respiratory rate 16 /min Isreal Kincaid MD Work Phone: [facility] Work Phone: 03-07-2021 02:39-0400 SaO2% (BldA) [Mass fraction] 100 % Isreal Kincaid MD Work Phone: [employer] Work Phone: 03-07-2021 02:39-0400 Systolic blood pressure 113 mm[Hg] Isreal Kincaid MD Work Phone: [facility] Work Phone: 03-07-2021 02:04-0400 Body height 177.8 cm Isreal Kincaid MD Work Phone: [facility] Work Phone: 03-07-2021 02:04-0400 Body mass index (BMI) [Ratio] 25.83 kg/m2 Isreal Kincaid MD Work Phone: [facility] Work Phone: 03-07-2021 02:04-0400 Body weight 81.65 kg Isreal Kincaid MD Work Phone: [facility] Work Phone: 03-07-2021 00:27-0400 Body temperature 98.4 [degF] Isreal Kincaid MD Work Phone: [employer] Work Phone: Encounters Encounter Date Encounter Type Care Provider Facility Start: 05-14-2025 End: 05-14-2025 ambulatory ARLINE CORADO SENIOR TECHNICAL PROJECT 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 Facility:[facility] Start: 05-14-2025 End: 05-14-2025 SAME DAY STAY CASEY MOULTON MD [facility] Start: 05-11-2025 ambulatory ARLINE GOODWIN SENIOR TECHNICAL PROJECT 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 Facility:[facility] Start: 05-10-2025 End: 05-10-2025 Emergency department patient visit Nelson Ulloa Facility:[facility] Start: 05-06-2025 End: 05-06-2025 Emergency department patient visit No Primary Care Physician -Emergency Department Work Phone: Start: 05-03-2025 End: 05-03-2025 Emergency department patient visit No Primary Care Physician -Emergency Department Work Phone: Start: 04-17-2025 End: 04-17-2025 ambulatory ARLINE Erick MICKIE SENIOR TECHNICAL PROJECT 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 Facility:[facility] Start: 04-17-2025 End: 04-17-2025 Patient encounter procedure ARLINE M MICKIE SENIOR TECHNICAL PROJECT 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 [facility] Start: 03-22-2025 End: 03-23-2025 Emergency department patient visit No Primary Care Physician -Emergency Department Work Phone: Start: 03-22-2025 End: 03-22-2025 Emergency department patient visit PAMELA MEZA MD Facility:[facility] Start: 03-10-2025 End: 03-10-2025 ambulatory ARLINE CORADO SENIOR TECHNICAL PROJECT 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 Facility:[facility] Start: 03-09-2025 End: 03-10-2025 Emergency department patient visit HANNAH MICKIE Facility:[id number] Start: 02-18-2025 End: 02-18-2025 Emergency department patient visit DR MARIANNA BOYKIN MD [facility] Start: 02-18-2025 End: 02-18-2025 Emergency department patient visit DR MARIANNA BOYKIN MD Facility:[facility] Start: 02-05-2025 End: 02-05-2025 Emergency department patient visit No Primary Care Physician -Emergency Department Work Phone: Start: 01-11-2025 End: 01-12-2025 Emergency department patient visit No Primary Care Physician -Emergency Department Work Phone: Start: 09-30-2024 End: 09-30-2024 Emergency department patient visit MARLENA LOWERY DO [facility] Start: 09-03-2024 ambulatory ARLINE GOODWIN SENIOR TECHNICAL PROJECT 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 Facility:[facility] Start: 08-22-2024 End: 08-22-2024 ambulatory ARLINE CORADO SENIOR TECHNICAL PROJECT 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 Facility:[facility] Start: 08-11-2024 Emergency department patient visit ARLINE CORADO Facility:[id number] Start: 08-08-2024 End: 08-08-2024 Emergency department patient visit Nelson Webster Facility:[facility] Start: 07-17-2024 End: 07-17-2024 Emergency department patient visit Oseas Aviles Facility:[facility] Start: 07-12-2024 End: 07-12-2024 Emergency department patient visit No Primary Care Physician Facility:[facility] Start: 06-16-2024 End: 06-16-2024 Emergency department patient visit [facility] Facility:[facility] Start: 05-06-2024 End: 05-06-2024 Patient encounter procedure Leela Currie MD Work Phone: OB/Gynecology Comment on above: Incomplete (Primary Dx); Threatened miscarriage Start: 05-06-2024 End: 05-06-2024 ambulatory SUSHIL VILLANUEVA Facility:[facility] Start: 05-05-2024 End: 05-05-2024 Emergency department patient visit ARLINE CORADO SENIOR TECHNICAL PROJECT 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 Facility:[facility] Start: 05-02-2024 End: 05-07-2024 Telephone encounter Jose Aranda APRN.CNM Work Phone: OB/Gynecology Comment on above: Results Start: 05-01-2024 End: 05-01-2024 ambulatory SUSHIL VILLANUEVA OB/Gynecology Start: 05-01-2024 End: 05-01-2024 Patient encounter procedure Jose Aranda APRN.CNM Work Phone: OB/Gynecology Comment on above: Positive t est (Primary Dx); Threatened miscarriage; with uncertain dates in first trimester; Spotting affecting in first trimester Start: 04-28-2024 End: 04-28-2024 ambulatory SUSHIL VILLANUEVA Facility:[facility] Start: 04-28-2024 End: 04-28-2024 Patient encounter procedure Sushil Villanueva SENIOR TECHNICAL PROJECT MANAGER.M[employer]EVEL GAME DESIGNER Work Phone: OB/Gynecology Comment on above: with uncer tain viability, single or unspecified fetus (Primary Dx); with uncertain dates in first trimester Start: 03-15-2024 End: 03-19-2024 ambulatory HIRA LANGLEY MD Facility:[facility] Start: 03-15-2024 End: 03-15-2024 ambulatory HIRA LANGLEY MD Facility:[facility] Start: 02-19-2024 End: 02-19-2024 ambulatory ARLINE CORADO SENIOR TECHNICAL PROJECT 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 Facility:[facility] Start: 02-19-2024 End: 02-19-2024 Patient encounter procedure ARLINE Erick CORADO SENIOR TECHNICAL PROJECT 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 [facility] Start: 02-05-2024 End: 02-09-2024 ambulatory ABDI SURYA SENIOR TECHNICAL PROJECT 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 Facility:[facility] Start: 01-29-2024 End: 01-29-[address] JOSÉ MIGUEL MAGALLANES MD Facility:[facility] Start: 01-15-2024 End: 01-15-2024 ambulatory MARCELO ISBELL DO Facility:[facility] Start: 01-01-2024 End: 01-05-2024 ambulatory ERLINDA PULIDO-Jhoanna Facility:[facility] Start: 01-01-2024 End: 01-01-2024 ambulatory ERLINDA WILLINGHAM PA-C Facility:[facility] Start: 12-09-2023 Emergency department patient visit Facility:[facility] Start: 12-09-2023 Admission to [facility] Gila Roth MD Work Phone: Neurosurgery Comment on above: Numbness (Primary Dx ) Start: 12-09-2023 Telemedicine consultation with patient Gila Roth MD Work Phone: Neurosurgery Start: 12-04-2023 End: 12-04-[address] JOSÉ MIGUEL MAGALLANES MD Facility:[facility] Start: 12-04-2023 End: 12-08-[address] JOSÉ MIGUEL MAGALLANES MD Facility:[facility] Start: 11-19-2023 End: 11-19-2023 ambulatory ABDI LONDON SENIOR TECHNICAL PROJECT 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 Facility:[facility] Start: 11-05-2023 End: 11-05-[address] JOSÉ MIGUEL MAGALLANES MD Facility:[facility] Start: 10-14-2023 End: 10-15-2023 Emergency department patient visit 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 [facility] Start: 08-29-2023 End: 08-29-2023 ambulatory ERLINDA WILLINGHAM PA-C Facility:A Start: 08-11-2023 End: 08-11-2023 Emergency department patient visit 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 [facility] Start: 05-12-2023 End: 05-12-2023 Emergency department patient visit 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 [facility] Start: 02-13-2023 End: 02-13-2023 Emergency department patient visit 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 [facility] Start: 09-26-2022 End: 09-27-2022 Emergency department patient visit MARCELO ROBLES [facility] Start: 09-26-2022 End: 09-26-2022 Emergency department patient visit Marcelo Robles MD Work Phone: [facility] ED Comment on above: Hypertension, unspec ified type (Primary Dx) Start: 09-25-2022 End: 09-25-2022 Emergency department patient visit Alvin Pryor [facility] Start: 03-05-2022 End: 03-08-2022 Evaluation and management of inpatient JOSSIE HAYES MD [facility] Start: 01-17-2022 End: 01-18-2022 Observation MICHI LEONARD DO [facility] Start: 12-26-2021 End: 12-26-2021 Subsequent hospital visit by physician ANNA GARCÍA Comment on above: RT LOWER LEG PAIN/TR IAGE Start: 12-06-2021 End: 12-06-2021 Patient encounter procedure GATITO ODOM DO [facility] Start: 11-29-2021 End: 11-29-2021 ambulatory NONE NONE Facility:[facility] Start: 08-07-2021 End: 08-07-2021 Emergency department patient visit NANDA G PARIS DO [facility] Start: 05-18-2021 End: 05-18-2021 Emergency department patient visit DR JOSÉ MIGUEL MAGALLANES MD [facility] Start: 03-15-2021 End: 03-15-2021 Emergency department patient visit [facility] Emergency Dept Comment on above: Cough (Primary Dx); Vaginal discharge Start: 03-07-2021 End: 03-07-2021 Emergency department patient visit Isreal Kincaid MD Work Phone: [facility] Emergency Dept Comment on above: Ecstasy abuse (HCC) (Primary Dx); Acute cystitis with hematuria Procedures Date Procedure Procedure Detail Performing Clinician Start: 05-06-2025 Urnls dip stick/tabl et reagent auto microscopy No Primary Care Physician Start: 05-06-2025 Estimated creatinine clearance No Primary Care Physician Start: 05-06-2025 Transvaginal obstetr ic ultrasonography No Primary Care Physician Start: 05-03-2025 CT of head without contrast No Primary Care Physician Start: 05-03-2025 Urnls dip stick/tabl et reagent auto microscopy No Primary Care Physician Start: 05-03-2025 Estimated creatinine clearance No Primary Care Physician Start: 05-03-2025 Transvaginal obstetr ic ultrasonography No Primary Care Physician Start: 03-22-2025 Estimated creatinine clearance No Primary Care Physician Start: 02-05-2025 CT of head without contrast No Primary Care Physician Start: 01-11-2025 CT of head without contrast No Primary Care Physician Start: 01-11-2025 Estimated creatinine clearance No Primary Care Physician Start: 05-01-2024 Us pelvic nonobstetr ic real-time image complete Sushil Villanueva MID LEVEL GAME DESIGNER Work Phone: Start: 04-28-2024 Antibody screen SUSHIL STATON Comment on above: Order Comment: Speci men Type: BLOOD SPECIMEN Ordering Facility: [facility] Address: [address] [place] [address] Performed By: #### T SPN #### [facility] CLIA [id number] [address] [place] [address] [place] [address] [place] Start: 04-28-2024 Us uterus l imited fetuses Sushil Villanueva YANNICK.MID LEVEL GAME DESIGNER Work Phone: Start: 10-14-2023 Microscopic urinalysis 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 Start: 08-11-2023 Lumbar puncture usin g fluoroscopic guidance 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 Start: 08-11-2023 Microscopic urinalysis 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 Start: 05-12-2023 CT of head without contrast 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 Start: 05-12-2023 Lumbar puncture usin g fluoroscopic guidance 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 Start: 05-12-2023 Microscopic urinalysis 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 Start: 02-13-2023 Plain chest X-ray On Ca ll Start: 02-13-2023 Ultrasonography of deep vein 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 Start: 09-26-2022 Ct thorax w/contrast material Serena Kelly DO Work Phone: Start: 09-26-2022 End: 09-26-2022 Basic metabolic panel calcium total Serena Kelly DO Work Phone: Start: 09-25-2022 Plain chest X-ray Tod F ilmer Start: 09-25-2022 US scan venography o f upper limbs Tod Filmer Start: 03-15-2021 Radiologic exam ches t single view Carlitos English SENIOR TECHNICAL PROJECT MANAGER - [employer]EV[employer] GAME DESIGNER Work Phone: Start: 03-07-2021 Urnls dip stick/tabl et rgnt auto w/o microscopy Sherin Dawkins SENIOR TECHNICAL PROJECT MANAGER - MID [employer]EVEL GAME DESIGNER Work Phone: Start: 03-07-2021 Basic metabolic pane l calcium total Sherin Dawkins SENIOR TECHNICAL PROJECT MANAGER - MID LEVEL GAME DESIGNER Work Phone: Start: 03-07-2021 Ecg routine ecg w/le ast 12 lds w/i&r Isreal Kincaid MD Work Phone: Start: 01-06-2019 Antibody screen Comment on above: Performed By: #### T &S #### [place] [address] None (qualifier value) DR CARROLL MAGALLANES MD Plan of Treatment Date Care Activity Detail Author Start: 2070 RSV Vaccine (1 - 1-d ose 75+ series) RSV Vaccine (1 - 1-dose 75+ series) [facility] Start: 06-18-2029 Urine microalbumin profile DTaP,Tdap,Td Vaccine (9 - Td or Tdap) [facility] Start: 05-10-2025 [facility] Start: 05-06-2025 [facility] Start: 05-03-2025 End: 05-03-2025 [facility] Start: 03-23-2025 [facility] Start: 02-05-2025 [facility] Start: 02-05-2025 CT of head without contrast Brain/Head without Contrast [facility] Start: 02-05-2025 CT Unspecified body region WO contrast [facility] Start: 01-12-2025 [facility] Start: 05-29-2024 DTaP/Tdap/Td vaccine (2 - Td or Tdap) DTaP/Tdap/Td vaccine (2 - Td or Tdap) [facility] Start: 05-26-2024 End: 05-26-2024 Patient encounter procedure 05/26/2024 1:10 PM EDT Routine Office Visit OB/Gynecology [address] [place], [place] [id number] Cheryl Ricardo MD [address] [place], [place] [id number] NEw OB LMP 02/19 ?? OB/Gynecology Comment on above: NEw OB LMP 02/19 ?? Start: 05-14-2024 End: 05-14-2024 Patient encounter procedure 05/14/2024 1:30 PM EDT Office Visit OB/Gynecology [address] [place] [address] Leela Currie MD [address] [place] [address] IPAS f/u OB/Gynecology Comment on above: IPAS f/u Start: 05-06-2024 End: 05-06-2024 Patient encounter procedure 05/06/2024 2:30 PM EDT Routine Office Visit OB/Gynecology [address] [place] [address] Leela Currie MD [address] [place] [address] OB Routine OB/Gynecology Comment on above: OB Routine Start: 05-06-2024 End: 08-05-2024 CBC panel - Blood by Automated count COMPLETE BLOOD COUNT Lab Routine Threatened miscarriage Expected: 05/06/2024, Expires: 08/05/[address] [facility] Work Phone: Comment on above: Expected: 05/06/2024 , Expires: 08/05/2024 Start: 05-01-2024 End: 05-01-2024 Patient encounter procedure 05/01/2024 1:30 PM EDT Office Visit OB/Gynecology [address] [place] [address] Jose Aranda APRN.[facility] [address] [place] [address] US follow up OB/Gynecology Comment on above: US follow up Start: 05-01-2024 End: 05-01-2024 ambulatory 05/01/2024 1:00 PM EDT Procedure OB/Gynecology [address] [place] [address] with uncertain dates in first trimester [Z34.91] OB/Gynecology Comment on above: with uncer tain dates in first trimester [Z34.91] Start: 04-28-2024 End: 07-28-2024 Hemoglobin A1c in Blood [facility] Comment on above: Expected: 04/28/2024 , Expires: 07/28/2024 Start: 04-28-2024 End: 07-28-2024 TYPE + SCREEN [facility] Comment on above: Expected: 04/28/2024 , Expires: 07/28/2024 Start: 04-28-2024 End: 04-28-2025 US Pelvis PELVIC US WHI Anc Imaging Routine with uncertain dates in first trimester Expected: 04/28/2024, Expires: 04/28/2025 [facility] Comment on above: Expected: 04/28/2024 , Expires: 04/28/2025 Start: 03-30-2024 Covid-19 Vaccine ( season) Covid-19 Vaccine ( season) [facility] Start: 03-30-2024 Influenza vaccination C [facility] Start: 07-30-2023 Behavioral Health Screening Behavioral Health Screening [facility] Start: 05-12-2023 Bacteria identified in Urine by Culture Urine Culture [facility] Start: 03-30-2023 Covid-19 Vaccine ( season) Covid-19 Vaccine ( season) [facility] Start: 03-30-2022 Influenza vaccination INFLUENZ A (Season Ended) [facility] Start: 02-27-2022 Influenza vaccination Flu vaccine (# 1) [facility] Start: 01-06-2022 PAP TESTING PAP TESTING [facility] Start: 01-06-2022 Screening for malign ant neoplasm of cervix [facility] Start: 03-30-2021 Influenza vaccination Flu vaccine (# 1) [facility] Work Phone: Start: 2016 Screening for malign ant neoplasm of cervix Pap smear [facility] Start: 2014 Urine microalbumin profile DTAP,TDAP,TD (1 - Tdap) [facility] Start: 2013 Anxiety Screening Anxiety Screening [facility] Start: 2013 Depression Screening Depression Scre ening [facility] Start: 2013 Hepatitis C screening Hepatitis C sc reen [facility] Start: 11-11-2012 HPV Vaccine (2 - 3-d ose series) HPV Vaccine (2 - 3-dose series) [facility] Start: 2010 HIV screening HIV screen [facility] Start: 2009 PEDS TO ADULT TRANSITION ANNUAL ASSESSMENT PEDS TO ADULT TRANSITION ANNUAL ASSESSMENT [facility] Start: 2007 Adult depression screening assessment DEPRESSION SCREENING [facility] Start: 2007 COVID-19 Vaccine (1) COVID-19 Vaccin e (1) [facility] Work Phone: Start: 2007 Depression Screen Depression Screen [facility] Start: 2007 PEDS TO ADULT TRANSITION INITIAL DISCUSSION PEDS TO ADULT TRANSITION INITIAL DISCUSSION [facility] Start: 2006 HPV VACCINE (1 - 2-d ose series) HPV VACCINE (1 - 2-dose series) [facility] Start: 2001 PNEUMOCOCCAL (1 - PCV) PNEUMOCOCCAL (1 - PCV) [facility] Start: 2000 COVID-19 VACCINE (#1) COVID-19 VACCI NE (#1) [facility] Start: 1996 Varicella vaccine (1 of 2 - 2-dose childhood series) Varicella vaccine (1 of 2 - 2-dose childhood series) [facility] Start: 1995 COVID-19 Vaccine (#1) COVID-19 Vacci ne (#1) [facility] Bacteria identified in Urine by Culture URINE CULTURE Microbiology Routine with uncertain dates in first trimester 04/28/2024 12:14 PM EDT [facility] End: 03-15-2021 C. Trachomatis / [...] for 8 Occurrences starting 04/28/2024 until 04/28/[address] [facility] Work Phone: Comment on above: 2x per week for 8 Oc currences starting 04/28/2024 until 04/28/2025 Choriogonadotropin.b eta subunit [Units/volume] in Serum or Plasma HCG QUANTITATIVE Lab Routine with uncertain dates in first trimester 04/28/2024 12:12 PM EDT [facility] EKG 12 Lead EKG 12 Lead ECG STAT 03/07/2021 12:24 AM EDT [facility] Work Phone: Patient Education [facility] Patient referral [facility] Work Phone: End: 03-15-2021 Respiratory Panel, [...] Routine Threatened miscarriage 05/06/2024 4:56 PM EDT [facility] Immunizations Immunization Date Immunization Notes Care Provider Fa mary 06-18-2019 tetanus toxoid, redu jose diphtheria toxoid, and acellular pertussis vaccine, adsorbed ARLINE MICKIE SENIOR TECHNICAL PROJECT 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 [facility] 02-18-2019 hepatitis A vaccine, adult dosage ARLINE MICKIE SENIOR TECHNICAL PROJECT 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 [facility] 05-31-2014 pneumococcal polysaccharide vaccine, [address] JOSÉ MIGUEL MAGALLANES MD [facility] 05-29-2014 tetanus toxoid, redu jose diphtheria toxoid, and acellular pertussis vaccine, adsorbed DR JOSÉ MIGUEL MAGALLANES MD [facility] 10-14-2012 hepatitis A vaccine, pediatric dosage, unspecified formulation ARLINE MICKIE SENIOR TECHNICAL PROJECT 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 [facility] 10-14-2012 Human Papillomavirus Quadval ARLINE MICKIE SENIOR TECHNICAL PROJECT 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 [facility] 10-14-2012 meningococcal polysaccharide (groups A, C, Y and W-135) diphtheria toxoid conjugate vaccine (MCV4P) ARLINE MICKIE SENIOR TECHNICAL PROJECT 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 [facility] 10-14-2012 tetanus toxoid, redu jose diphtheria toxoid, and acellular pertussis vaccine, adsorbed ARLINE MICKIE SENIOR TECHNICAL PROJECT 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 [facility] 03-21-2000 measles/mumps/rubell a virus vaccine ARLINE MICKIE SENIOR TECHNICAL PROJECT 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 [facility] 03-21-2000 poliovirus vaccine, inactivated ARLINE MICKIE SENIOR TECHNICAL PROJECT 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 [facility] 04-06-1998 hepatitis B pediatri c vaccine ARLINE MICKIE SENIOR TECHNICAL PROJECT 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 [facility] 01-28-1997 measles/mumps/rubell a virus vaccine ARLINE MICKIE SENIOR TECHNICAL PROJECT 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 [facility] 01-28-1997 poliovirus vaccine, inactivated ARLINE MICKIE SENIOR TECHNICAL PROJECT 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 [facility] 1995 hepatitis B pediatri c vaccine ARLINE MICKIE SENIOR TECHNICAL PROJECT 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 [facility] 1995 hepatitis B pediatri c vaccine ARLINE MICKIE SENIOR TECHNICAL PROJECT 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 [facility] 1995 poliovirus vaccine, inactivated ARLINE MICKIE SENIOR TECHNICAL PROJECT 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 [facility] 1995 poliovirus vaccine, inactivated ARLINE MICKIE SENIOR TECHNICAL PROJECT 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 [facility] 1995 hepatitis B pediatri c vaccine ARLINE MICKIE SENIOR TECHNICAL PROJECT 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 [facility] 1995 hepatitis B pediatri c vaccine ARLINE MICKIE SENIOR TECHNICAL PROJECT 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 [facility] Payers Date Payer Category Payer Private Health Insurance [id number] 2023 Medicaid [id number] 2023 Private Health Insurance [id number] 2020 Private Health Insurance [facility] [id number] 2020-Present [phone] [address] [place] [address] [id number]. [id number] 2018 Medicaid [facility] MEDICAID [employer] MEDICAID [id number] 2018-Present [phone] [address] [place] [address] Medicaid [id number]. [id number] 1995 Unknown [id number] 2.16.840.1.035231.3.579.2. 419 1995 Unknown [id number] 2.16840.1.152124.3.579.2. 627 1995 Unknown [id number] 2.840.1.209930.3.579.2. 1995 Unknown [id number] 2.840.1.616975.3.579.2. 1995 Unknown [id number] 2.840.1.334611.3.579.2. 1995 Unknown [id number] 2.840.1.966138.3.579.2. 1995 Unknown [id number] 2.840.1.318317.3.579.2. 1995 Unknown [id number] 2.16840.1.167815.3.579.2. 62 1995 Unknown [id number] 2.840.1.283076.3.579.2. 1995 Unknown [id number] 2.840.1.390898.3.579.2. 62 1995 Unknown [id number] 2.16840.1.976008.3.579.2. 1995 Unknown [id number] 2.840.1.154859.3.579.2. 627 1995 Unknown [id number] 2.840.1.953069.3.579.2. 1995 Unknown [id number] 840.1.796823.3.579.2. 1995 Unknown [id number] .840.1.477663.3.579.2. 1995 Unknown [id number] .840.1.334567.3.579.2. 1995 Unknown [id number] 840.1.301453.3.579.2. 1995 Unknown [id number] .840.1.178012.3.579.2. 1995 Unknown [id number] 840.1.225014.3.579.2. 1995 Unknown [id number] 840.1.176547.3.579.2. 1995 Unknown [id number] 09.14.830.1.246676.3.579.2. 1995 Unknown [id number] 840.1.259284.3.579.2. 1995 Unknown [id number] 840.1.610382.3.579.2. 1995 Unknown [id number] 840.1.780984.3.579.2. 1995 Unknown [id number] 840.1.661665.3.579.2. 1995 Unknown [id number] 840.1.744948.3.579.2. 627 1959 Self-pay Unknown [id number] 840.1.628695.3.579.2. 630 Unknown [id number] 2840.1.480918.3.579.2. 630 Unknown [id number] 840.1.822148.3.579.2. 630 Unknown [id number] 2.16.840.1.059030.3.579.2. 630 Unknown [id number] 2.16.840.1.225748.3.579.2. 462 Unknown [id number] 2.16.840.1.358527.3.579.2. 462 Unknown [id number] 2.16.840.1.666945.3.579.2. 462 Unknown [id number] 2.16.840.1.686104.3.579.2. 462 Unknown [id number] 2.16.840.1.604634.3.579.2. 462 Unknown [id number] 2.16.840.1.138587.3.579.2. 462 Unknown [id number] 2.16.840.1.535814.3.579.2. 462 Unknown [id number] 2.16.840.1.592963.3.579.2. 462 Unknown [id number] 2.16.840.1.536640.3.579.2. 462 Unknown [id number] 2.16.840.1.744627.3.579.2. 462 Social History Date Type Detail Facility Start: 02-19-2018 End: 09-10-2018 Tobacco smoking status NYIS Never smoker [facility] Start: 09-10-2018 End: 06-24-2023 Tobacco use and exposure Never used [facility] Start: 09-10-2018 End: 05-01-2024 Alcohol intake Current drinker of alcohol (finding) [facility] Work Phone: Start: 1995 Sex Assigned At Not on file S [facility] Work Phone: Start: 09-16-2022 End: 09-26-2022 Exposure to SARS-CoV-2 (event) Not sure [facility] Start: 05-19-2020 End: 08-22-2024 Light tobacco smoker (finding) [facility] Sex Assigned At [facility] Start: 12-19-2018 End: 05-10-2025 Tobacco smoking status NHIS Smokes tobacco daily [facility] Start: 10-22-2019 Alcohol intake Ex-drinker (finding) [facility] Start: 01-17-2022 End: 01-11-2025 Tobacco smoking status Ex-smoker (finding) [facility] History of tobacco use Current smoker [facility] History of tobacco use Cigarette Smoker C [facility] Start: 06-24-2023 End: 04-28-2024 History of Social function [facility] Start: 06-24-2023 End: 04-28-2024 Tobacco use panel [facility] Start: 05-14-2025 National Score (1-10 0), lower number is lower risk 75 [facility] Start: 06-08-2023 Alcohol Comment socially [facility] [employer], [employer], or [employer] threatened to shut off services in your home in past 12Mo No [facility] (I/We) worried whemargareth er (my/our) food would run out before (I/we) got money to buy more. Never true [facility] Start: 12-20-2013 Sex Female (finding) [facility] Start: 1995 Sex Assigned At Female W [facility] Start: 05-06-2025 Tobacco smoking stat us [facility] Current some day smoker [facility] Sexual Sexually active: Yes. [facility] Medical Equipment Procedure Code Equipment Code Equipment Origin al Text Equipment Identifier Dates TEST BLOOD SUGAR EVERY DAY Start: 2024 See Instructions , check BS daily, # 100 EA, 5 Refill(s), Pharmacy: [facility] #[id number], Type 2 diabetes mellitus, 178, cm, 03/15/24 14:17:00 EDT, Height, 104.8, kg, 03/15/24 14:17:00 EDT, Dosing Weight Start: 04-18-2024 See Instructions , BD VENANCIO 2 GEN PEN NDL [id number], # 100 EA, 5 Refill(s), Pharmacy: [facility] #[id number], 178, cm, 03/15/24 14:17:00 EDT, Height, 97, kg, 05/05/24 17:35:00 EDT, Dosing Weight Start: 05-12-2024 See Instructions , test BS daily, # 100 EA, 5 Refill(s), [id number], 177.8, cm, 02/19/24 15:03:00 EDT, Height, 93, kg, 02/05/24 15:51:00 EDT, Dosing Weight Start: 03-05-2024 See Instructions , check BS daily, # 100 EA, 5 Refill(s), [id number], Type 2 diabetes mellitus, 178, cm, 03/15/24 14:17:00 EDT, Height, 104.8, kg, 03/15/24 14:17:00 EDT, Dosing Weight Start: 04-18-2024 See Instructions , BD VENANCIO 2 GEN PEN NDL [id number], # 100 EA, 5 Refill(s), [id number], 178, cm, 03/15/24 14:17:00 EDT, Height, 97, kg, 05/05/24 17:35:00 EDT, Dosing Weight Start: 05-12-2024 See Instructions , test BS daily, # 100 EA, 5 Refill(s), [id number], 177.8, cm, 02/19/24 15:03:00 EDT, Height, 93, kg, 02/05/24 15:51:00 EDT, Dosing Weight Start: 03-05-2024 See Instructions , check BS daily, # 100 EA, 5 Refill(s), Pharmacy: [facility] #[id number], Type 2 diabetes mellitus, 178, cm, 03/15/24 14:17:00 EDT, Height, 104.8, kg, 03/15/24 14:17:00 EDT, Dosing Weight Start: 04-18-2024 See Instructions , BD VENANCIO 2 GEN PEN NDL [id number], # 100 EA, 5 Refill(s), Pharmacy: [facility] #[id number], 178, cm, 03/15/24 14:17:00 EDT, Height, 97, kg, 05/05/24 17:35:00 EDT, Dosing Weight Start: 05-12-2024 See Instructions , test BS daily, # 100 EA, 5 Refill(s), Pharmacy: [facility] #[id number], 177.8, cm, 02/19/24 15:03:00 EDT, Height, 93, kg, 02/05/24 15:51:00 EDT, Dosing Weight Start: 03-05-2024 See Instructions , check BS daily, # 100 EA, 5 Refill(s), [id number], Type 2 diabetes mellitus, 178, cm, 03/15/24 14:17:00 EDT, Height, 104.8, kg, 03/15/24 14:17:00 EDT, Dosing Weight Start: 04-18-2024 See Instructions , BD VENANCIO 2 GEN PEN NDL [id number], # 100 EA, 5 Refill(s), Pharmacy: [facility] #[id number], 178, cm, 03/15/24 14:17:00 EDT, Height, 97, kg, 05/05/24 17:35:00 EDT, Dosing Weight Start: 05-12-2024 See Instructions , test BS daily, # 100 EA, 5 Refill(s), Pharmacy: [facility] #[id number], 177.8, cm, 02/19/24 15:03:00 EDT, Height, 93, kg, 02/05/24 15:51:00 EDT, Dosing Weight Start: 03-05-2024 Functional Status Date Assessment Result Facility 05-14-2025 Functional Status Awake [facility] 05-14-2025 Functional Status Maintained [facility] 09-30-2024 Functional Status Independent [facility] 09-30-2024 Functional Status ID band on, Allergy Band on, Call device within reach, Bed in low position, Wheels locked, Upper/Half-Length side-rails up, Visitor at bedside, Safety level maintained [facility] 03-08-2022 Functional Status Sitting in bed , Remains in NICU [facility] 03-08-2022 Functional Status [facility] 03-08-2022 Functional Status [facility] 2022 Functional Status [facility] 03-05-2022 Functional Status [facility] 03-05-2022 Functional Status [facility] 01-18-2022 Functional Status Ambulation in Room [facility] 01-17-2022 Functional Status Home independently [facility] 01-17-2022 Functional Status Rooming in [facility] 01-17-2022 Functional Status [facility] Mental Status Date Assessment Result Facility 05-14-2025 Mental Status Orientation Oriented x 4 [facility] 05-14-2025 Mental Status [facility] 05-14-2025 Mental Status [facility] 05-10-2025 Cognitive function Level Of Consciousness Awake [facility] Work Phone: 03-22-2025 Cognitive function Level Of Cons ciousness Awake;Alert;Appropriate;Follow s Commands [facility] [facility] Work Phone: 01-11-2025 Cognitive function Voice/Name [facility] Work Phone: 09-30-2024 Mental Status Orientation Oriented x 4 [facility] (formerly [facility]) 09-30-2024 Mental Status [facility] Clinical Notes 03-07-2021 to 05-14-2025 Note Date & Type Note Facility 05-14-2025 Hospital Discharg e instructions Patient Education 05/14/2025 12:38:30 General Anesthesia, Adult, Care After General Anesthesia, Adult, Care After This sheet gives you information about how to care for yourself after your procedure. Your health care provider may also give you more specific instructions. If you have problems or questions, contact your health care provider. What can I expect after the procedure? After the procedure, the following side effects are common: Pain or discomfort at the IV site. Nausea. Vomiting. Sore throat. Trouble concentrating. Feeling cold or chills. Weak or tired. Sleepiness and fatigue. Soreness and body aches. These side effects can affect parts of the body that were not involved in surgery. Follow these instructions at home: For at least 24 hours after the procedure: Have a responsible adult stay with you. It is important to have someone help care for you until you are awake and alert. Rest as needed. Do not: ?Participate in activities in which you could fall or become injured. ?Drive. ?Use heavy machinery. ?Drink alcohol. ?Take sleeping pills or medicines that cause drowsiness. ?Make important decisions or sign legal documents. ?Take care of children on your own. Eating and drinking Follow any instructions from your health care provider about eating or drinking restrictions. When you feel hungry, start by eating small amounts of foods that are soft and easy to digest (bland), such as toast. Gradually return to your regular diet. Drink enough fluid to keep your urine pale yellow. If you vomit, rehydrate by drinking water, juice, or clear broth. General instructions If you have sleep apnea, surgery and certain medicines can increase your risk for breathing problems. Follow instructions from your health care provider about wearing your sleep device: ?Anytime you are sleeping, including during daytime naps. ?While taking prescription pain medicines, sleeping medicines, or medicines that make you drowsy. Return to your normal activities as told by your health care provider. Ask your health care provider what activities are safe for you. Take ihlt-qcm-njbhehb and prescription medicines only as told by your health care provider. If you smoke, do not smoke without supervision. Keep all follow-up visits as told by your health care provider. This is important. Contact a health care provider if: You have nausea or vomiting that does not get better with medicine. You cannot eat or drink without vomiting. You have pain that does not get better with medicine. You are unable to pass urine. You develop a skin rash. You have a fever. You have redness around your IV site that gets worse. Get help right away if: You have difficulty breathing. You have chest pain. You have blood in your urine or stool, or you vomit blood. Summary After the procedure, it is common to have a sore throat or nausea. It is also common to feel tired. Have a responsible adult stay with you for the first 24 hours after general anesthesia. It is important to have someone help care for you until you are awake and alert. When you feel hungry, start by eating small amounts of foods that are soft and easy to digest (bland), such as toast. Gradually return to your regular diet. Drink enough fluid to keep your urine pale yellow. Return to your normal activities as told by your health care provider. Ask your health care provider what activities are safe for you. This information is not intended to replace advice given to you by your health care provider. Make sure you discuss any questions you have with your health care provider. Document Released: 10/22/2001 Document Revised: 07/19/2018 Document Reviewed: 03/01/2018 [employer] Patient Education 2020 [employer]. 05/14/2025 11:44:58 Dilation and Curettage or Vacuum Curettage, Care After Dilation and Curettage or Vacuum Curettage, Care After This sheet gives you information about how to care for yourself after your procedure. Your health care provider may also give you more specific instructions. If you have problems or questions, contact your health care provider. What can I expect after the procedure? After your procedure, it is common to have: Mild pain or cramping. Some vaginal bleeding or spotting. These may last for up to 2 weeks after your procedure. Follow these instructions at home: Activity Do not drive or use heavy machinery while taking prescription pain medicine. Avoid driving for the first 24 hours after your procedure. Take frequent, short walks, followed by rest periods, throughout the day. Ask your health care provider what activities are safe for you. After 1 2 days, you may be able to return to your normal activities. Do not lift anything heavier than 10 lb (4.5 kg) until your health care provider approves. For at least 2 weeks, or as long as told by your health care provider, do not: ?Douche. ?Use tampons. ?Have sexual intercourse. General instructions Take xtnv-wzs-fzapour and prescription medicines only as told by your health care provider. This is especially important if you take blood thinning medicine. Do not take baths, swim, or use a hot tub until your health care provider approves. Take showers instead of baths. Wear compression stockings as told by your health care provider. These stockings help to prevent blood clots and reduce swelling in your legs. It is your responsibility to get the results of your procedure. Ask your health care provider, or the department performing the procedure, when your results will be ready. Keep all follow-up visits as told by your health care provider. This is important. Contact a health care provider if: You have severe cramps that get worse or that do not get better with medicine. You have severe abdominal pain. You cannot drink fluids without vomiting. You develop pain in a different area of your pelvis. You have bad-smelling vaginal discharge. You have a rash. Get help right away if: You have vaginal bleeding that soaks more than one sanitary pad in 1 hour, for 2 hours in a row. You pass large blood clots from your vagina. You have a fever that is above 100.4 F (38.0 C). Your abdomen feels very tender or hard. You have chest pain. You have shortness of breath. You cough up blood. You feel dizzy or light-headed. You faint. You have pain in your neck or shoulder area. This information is not intended to replace advice given to you by your health care provider. Make sure you discuss any questions you have with your health care provider. Document Released: 07/13/2001 Document Revised: 06/28/2018 Document Reviewed: 02/15/2017 [employer] Patient Education 2020 [employer]. 05/14/2025 11:44:48 Managing Loss Managing Loss loss can happen any time during a . Often the cause is not known. It is rarely because of anything you did. loss in early (during the first trimester) is called a miscarriage. This type of loss is the most common. loss that happens after 20 weeks of is called demise if the baby's heart stops beating before . demise is much less common. Some women experience spontaneous labor shortly after demise resulting in a stillborn (stillbirth). Any loss can be devastating. You will need to recover both physically and emotionally. Most women are able to get again after a loss and deliver a healthy baby. How to manage emotional recovery loss is very hard emotionally. You may feel many different emotions while you grieve. You may feel sad and angry. You may also feel guilty. It is normal to have periods of crying. Emotional recovery can take longer than physical recovery. It is different for everyone. Taking these steps can help you in managing this loss: Remember that it is unlikely you did anything to cause the loss. Share your thoughts and feelings with friends, family, and your partner. Remember that your partner is also recovering emotionally. Make sure you have a good support system. Do not spend too much time alone. Meet with a loss counselor or join a loss support group. Get enough sleep and eat a healthy diet. Return to regular exercise when you have recovered physically. Do not use drugs or alcohol to manage your emotions. Consider seeing a mental health professional to help you recover emotionally. Ask a friend or loved one to help you decide what to do with any clothing and nursery items you received for your baby. In the case of a stillbirth, many women benefit from taking additional steps in the grieving process. You may want to: Hold your baby after the . Name your baby. Request a certificate. Create a keepsake such as handprints or footprints. Dress your baby and have a picture taken. Make arrangements. Ask for a uatsdin or blessing. Hospitals have staff members who can help you with all these arrangements. How to recognize emotional stress It is normal to have emotional stress after a loss. But emotional stress that lasts a long time or becomes severe requires treatment. Watch out for these signs of severe emotional stress: Sadness, anger, or guilt that is not going away and is interfering with your normal activities. Relationship problems that have occurred or gotten worse since the loss. Signs of depression that last longer than 2 weeks. These may include: ?Sadness. ?Anxiety. ?Hopelessness. ?Loss of interest in activities you enjoy. ?Inability to concentrate. ?Trouble sleeping or sleeping too much. ?Loss of appetite or overeating. ?Thoughts of or of hurting yourself. Follow these instructions at home: Take wjnc-phu-lmfmvvc and prescription medicines only as told by your health care provider. Rest at home until your energy level returns. Return to your normal activities as told by your health care provider. Ask your health care provider what activities are safe for you. When you are ready, meet with your health care provider to discuss steps to take for a future . Keep all follow-up visits as told by your health care provider. This is important. Where to find support To help you and your partner with the process of grieving, talk with your health care provider or seek counseling. Consider meeting with others who have experienced loss. Ask your health care provider about support groups and resources. Where to find more information [place]. Department of Health and Human Services Office on Women's Health: www.womenshealth.gov [place]: www.americanpregnancy.org Contact a health care provider if: You continue to experience grief, sadness, or lack of motivation for everyday activities, and those feelings do not improve over time. You are struggling to recover emotionally, especially if you are using alcohol or substances to help. Get help right away if: You have thoughts of hurting yourself or others. If you ever feel like you may hurt yourself or others, or have thoughts about taking your own life, get help right away. You can go to your nearest emergency department or call: Your local emergency services (911 in the [place] A suicide crisis helpline, such as the National Suicide Prevention Lifeline at . This is open 24 hours a day. Summary Any loss can be difficult physically and emotionally. You may experience many different emotions while you grieve. Emotional recovery can last longer than physical recovery. It is normal to have emotional stress after a loss. But emotional stress that lasts a long time or becomes severe requires treatment. See your health care provider if you are struggling emotionally after a loss. This information is not intended to replace advice given to you by your health care provider. Make sure you discuss any questions you have with your health care provider. Document Released: 09/26/2018 Document Revised: 11/05/2019 Document Reviewed: 09/26/2018 [employer] Patient Education 2020 [employer] Follow Up Care 05/11/2025 14:52:40 With:CASEY MOULTON MD Address: [address] [place] [address] [place] [phone] When: Unknown Comments:Call to schedule followup postsurgery appointment with me next [facility] 05-14-2025 Evaluation + Plan note Extrac alexandro from: Title:Clinical Document Author:CASEY MOULTON MD Date:05/14/25 [place] ADMISSION HISTORY AN D PHYSICIAL CHIEF COMPLAINT: Missed AB HISTORY OF PRESENT ILLNESS: Patient is a 30-year-old 7 para 6 at approximately 7 weeks estimated gestational age who presented to the emergency room at [facility] a little over a week ago with complaints of bleeding. At that time had an IUP and has had continued bleeding since. hCGs have fallen and were rechecked twice this week and again were considerably lower than when she was at the emergency room at [facility]. She continues to have passage of clots and some cramping. Ultrasound that was performed by me definitely showed a failed . REVIEW OF SYSTEMS: Heavy vaginal bleeding with cramping and passage of clots. No urinary or bowel complaints. Review of systems otherwise unremarkable. ACTIVE PROBLEMS: (19) ADD (attention deficit disorder) ([id number]) Anemia (112902178) Breast pain, left (8291360590) Ganglion cyst (0502556388) Gestational diabetes (20190514) Gestational diabetes (20190514) Gestational diabetes mellitus, class A>1< (013830189) Hypokalemia (02773454) Iron deficiency anemia (831399265) Left hip pain (67307596) Missed (0148061546) Prediabetes (6990460618) (530304649) Tobacco use (7014156326) Type 2 diabetes mellitus (994361484) Urinary tract infection (087613948) Vaginal yeast infection (276415528) Viral pharyngitis (6527477) Wrist pain (9321945550) MEDICATIONS: Active Inpt Meds: cefOXitin (Mefoxin) Start: 05/14/25 11:06:00 EDT, Dose = 2 gram(s), IV Piggyback, PREOP pharm, Rate: 200 mL/hr, Infuse over: 30 minute(s), 05/14/25 11:06:00 EDT Active PRN Meds: morphine (morphine ( PACU )) Start: 05/14/25 11:28:00 EDT, Dose = 2 mg, = 1 mL, IV Push, q5min, PRN, Pain, scale 4-6, 10 dose(s), Stop: Limited # of times, 05/14/25 11:28:00 EDT ondansetron (Zofran ( PACU )) Start: 05/14/25 11:28:00 EDT, Dose = 4 mg, = 2 mL, IV Push, AsDirected, PRN, Nausea/Vomiting, 1 dose(s), Stop: Limited # of times, 05/14/25 11:28:00 EDT One Time Meds: None Active IV Meds: Lactated Ringers Infusion 1000 mL (LR 1000 mL) Start: 05/14/25 11:06:00 EDT, Rate: 20 mL/hr, 05/14/25 11:06:00 EDT Lactated Ringers Infusion 1000 mL (LR 1000 mL) Start: 05/14/25 11:28:00 EDT, Rate: 20 mL/hr, 05/14/25 11:28:00 EDT ALLERGIES: (1) Vicodin FAMILY HISTORY: No significant family history pertaining to this admission SOCIAL HISTORY: Stable home environment. No toxic habits. PHYSICAL EXAM: VITALS: No Data Available 24 Hr Tmax: No Data Available 36 Hr Tmax: No Data Available Vital Signs are the last 5 in the past 48 hours. Weights display the last 5 within 7 days. Initial Wt: No Data Available Current Wt: No Data Available GENERAL: Appears well HEENT: Normocephalic CARDIOVASCULAR: Regular rate and rhythm normal blood pressure RESPIRATORY: Clear bilaterally ABDOMEN: Soft nontender no masses. Fundus not palpable. EXREMETIES: No edema NEUROLOGICAL: Intact PSYCHIATRIC: No signs of acute depression or anxiety LABS: 36hr Labs 05/14 1124 WBC7.5 RBC3.77L Hgb11.2L Hct32.9L MCV87.2 MCH29.6 MCHC33.9 RDW16.0H Xldhidbm444 MPV8.9 Neutrophil %58.8 Lymphocyte %31.6 Monocyte %6.2 Eosinophil %2.8 Basophil %0.6 Lymphocyte, Absolute2.4 Monocyte, Absolute0.5 Eosinophil, Absolute0.2 Basophil, Absolute0.0 Neutrophil, Absolute4.4 DIAGNOSTICS: Ultrasound performed by me in the office with no definitive IUP with POC present. IMPRESSION: Falling hCGs and ultrasound with no definitive IUP after having a previous ultrasound that showed an IUP. Missed AB PLAN: Plan for dilation and suction curettage. Procedures, risks, and postoperative expectations were reviewed and consents were obtained. Future Scheduled Tests Laboratory* hCG, quantitative (AH/AM Only) 04/23/25 Radiology* US Breast Left Complete 09/15/24 [facility] 10-16-2025 Note Discharge Instructions Thank you for allowing [facility] to assist you with your healthcare needs. The following is importantdischarge information regarding your hospital visit. Your Care Team ARLINE CORADO APRN-MID [employer] G[employer]ER DR. MOULTON Your Diagnosis Missed Missed ab Post-op pain What to do next Follow Up Appointments Follow Up with CASEY MOULTON MD Where:[address] [facility] [address] [facility] [place] [address]- [phone] Additional Information: Call to schedule followup postsurgery appointment with me next The Following Activity and Diet Have Been Ordered for You Discharge Activity - Ordered -- Follow the post-operative/post-procedure activity instructions provided by your physician's office., 05/14/25 12:13:00 EDT Discharge Activity - Ordered -- Follow the post-operative/post-procedure activity instructions provided by your physician's office., 05/14/25 12:23:00 EDT Discharge Diet - Ordered -- Type of Diet: Regular Diet, No changes were made to your diet during your hospital stay. Please resume your pre hospitalization diet on discharge., 05/14/25 12:13:00 EDT Discharge Diet - Ordered -- Follow the post-operative/post-procedure diet instructions provided by your physician's office.,05/14/25 12:23:00 EDT The Following Equipment Has Been Ordered for You Discharge Home Equipment Discharge Wound Care - Ordered -- Follow the post-operative/post-procedure wound care instructions provided by your physician's office., 05/14/25 12:13:00 EDT Discharge Wound Care - Ordered -- Follow the post-operative/post-procedure wound care instructions provided by your physician's office., 05/14/25 12:23:00 EDT Allergies Vicodin Medications Please ask your primary doctor or pharmacist before taking any other medication not listed, including over the counter drugs, herbal medications, vitamins and or supplements as they may interact withyour home medications. What How Much When Why Instructions Last Dose New acetaminophen-oxyCODONE (Percocet 5 mg-325 mg oral tablet) 1 tab(s) by mouth Every 6 hours as needed for Pain Post-op pain Duration: 5 Days Pickup at [facility] New ibuprofen (ibuprofen 600 mg oral tablet) 1 tab(s) by mouth Every 6 hours as needed for for pain Duration: 7 Days Take with food or milk. Pickup at [facility] Unchanged DME (Blood Glucose Test Machine) See instructions Type 2 diabetes mellitus 1 glucometer Unchanged DME (Blood Glucose Test Strips) See instructions Type 2 diabetes mellitus check BS daily Unchanged DME (Dexcom G7 Dyer) See instructions Type 2 diabetes mellitus Use [...] instructions BD VENANCIO 2 GEN PEN NDL [id number] Unchanged DME (Lancets) See instructions test BS daily Unchanged ferrous sulfate (ferrous sulfate 325 mg (65 mg elemental iron) oral delayed release tablet) 1 tab(s) by mouth Two (2) times a day Duration: 30 Days Unchanged Misc Medication (DEXCOM G7 SENSOR) See instructions PLACE ONE SENSOR ON THE BACK OF THE UPPER ARM EVERY 10 DAYS. USE READER OR PHONE LISETTE FOR DAILY BLOOD SUGAR CHECKS Unchanged multivitamin, (Prenavite FC oral tablet) TAKE 1 TABLET BY MOUTH EVERY DAY Pharmacy Information [facility]: [address] [place], [place] [phone] Please take this list to your next doctor s visit. Bring all medications you take, including over the counter medications, herbals and other supplements with you to your doctor s visit. Patients and families are reminded to discard old lists and to update any records with all medication providers or retail pharmacies. Education Materials General Anesthesia, Adult, Care After This sheet gives you information about how to care for yourself after your procedure. Your health care provider may also give you more specific instructions. If you have problems or questions, contact your health care provider. What can I expect after the procedure? After the procedure, the following side effects are common: Pain or discomfort at the IV site. Nausea. Vomiting. Sore throat. Trouble concentrating. Feeling cold or chills. Weak or tired. Sleepiness and fatigue. Soreness and body aches. These side effects can affect parts of the body that were not involved in surgery. Follow these instructions at home: For at least 24 hours after the procedure: Have a responsible adult stay with you. It is important to have someone help care for you until youare awake and alert. Rest as needed. Do not: ? Participate in activities in which you could fall or become injured. ? Drive. ? Use heavy machinery. ? Drink alcohol. ? Take sleeping pills or medicines that cause drowsiness. ? Make important decisions or sign legal documents. ? Take care of children on your own. Eating and drinking Follow any instructions from your health care provider about eating or drinking restrictions. When you feel hungry, start by eating small amounts of foods that are soft and easy to digest (bland), such as toast. Gradually return to your regular diet. Drink enough fluid to keep your urine pale yellow. If you vomit, rehydrate by drinking water, juice, or clear broth. General instructions If you have sleep apnea, surgery and certain medicines can increase your risk for breathing problems. Follow instructions from your health care provider about wearing your sleep device: ? Anytime you are sleeping, including during daytime naps. ? While taking prescription pain medicines, sleeping medicines, or medicines that make you drowsy. Return to your normal activities as told by your health care provider. Ask your health care provider what activities are safe for you. Take zkuv-alk-mxgjsvb and prescription medicines only as told by your health care provider. If you smoke, do not smoke without supervision. Keep all follow-up visits as told by your health care provider. This is important. Contact a health care provider if: You have nausea or vomiting that does not get better with medicine. You cannot eat or drink without vomiting. You have pain that does not get better with medicine. You are unable to pass urine. You develop a skin rash. You have a fever. You have redness around your IV site that gets worse. Get help right away if: You have difficulty breathing. You have chest pain. You have blood in your urine or stool, or you vomit blood. Summary After the procedure, it is common to have a sore throat or nausea. It is also common to feel tired. Have a responsible adult stay with you for the first 24 hours after general anesthesia. It is important to have someone help care for you until you are awake and alert. When you feel hungry, start by eating small amounts of foods that are soft and easy to digest (bland), such as toast. Gradually return to your regular diet. Drink enough fluid to keep your urine pale yellow. Return to your normal activities as told by your health care provider. Ask your health care provider what activities are safe for you. This information is not intended to replace advice given to you by your health care provider. Make sure you discuss any questions you have with your health care provider. Document Released: 10/22/2001 Document Revised: 07/19/2018 Document Reviewed: 03/01/2018 [employer] Patient Education 2020 [employer]. Dilation and Curettage or Vacuum Curettage, Care After This sheet gives you information about how to care for yourself after your procedure. Your health care provider may also give you more specific instructions. If you have problems or questions, contact your health care provider. What can I expect after the procedure? After your procedure, it is common to have: Mild pain or cramping. Some vaginal bleeding or spotting. These may last for up to 2 weeks after your procedure. Follow these instructions at home: Activity Do not drive or use heavy machinery while taking prescription pain medicine. Avoid driving for the first 24 hours after your procedure. Take frequent, short walks, followed by rest periods, throughout the day. Ask your health care provider what activities are safe for you. After 1 2 days, you may be able to return to your normal activities. Do not lift anything heavier than 10 lb (4.5 kg) until your health care provider approves. For at least 2 weeks, or as long as told by your health care provider, do not: ? Douche. ? Use tampons. ? Have sexual intercourse. General instructions Take umfr-vlw-edwvrvx and prescription medicines only as told by your health care provider. This isespecially important if you take blood thinning medicine. Do not take baths, swim, or use a hot tub until your health care provider approves. Take showers instead of baths. Wear compression stockings as told by your health care provider. These stockings help to prevent blood clots and reduce swelling in your legs. It is your responsibility to get the results of your procedure. Ask your health care provider, or the department performing the procedure, when your results will be ready. Keep all follow-up visits as told by your health care provider. This is important. Contact a health care provider if: You have severe cramps that get worse or that do not get better with medicine. You have severe abdominal pain. You cannot drink fluids without vomiting. You develop pain in a different area of your pelvis. You have bad-smelling vaginal discharge. You have a rash. Get help right away if: You have vaginal bleeding that soaks more than one sanitary pad in 1 hour, for 2 hours in a row. You pass large blood clots from your vagina. You have a fever that is above 100.4 F (38.0 C). Your abdomen feels very tender or hard. You have chest pain. You have shortness of breath. You cough up blood. You feel dizzy or light-headed. You faint. You have pain in your neck or shoulder area. This information is not intended to replace advice given to you by your health care provider. Make sure you discuss any questions you have with your health care provider. Document Released: 07/13/2001 Document Revised: 06/28/2018 Document Reviewed: 02/15/2017 [employer] Patient Education 2020 [employer] Managing Loss loss can happen any time during a . Often the cause is not known. It is rarely because of anything you did. loss in early (during the first trimester) is calleda miscarriage. This type of loss is the most common. loss that happens after 20weeks of is called demise if the baby's heart stops beating before . demise is much less common. Some women experience spontaneous labor shortly after demise resulting in a stillborn (stillbirth). Any loss can be devastating. You will need to recover both physically and emotionally. Most women are able to get again after a loss and deliver a healthy baby. How to manage emotional recovery loss is very hard emotionally. You may feel many different emotions while you grieve. Youmay feel sad and angry. You may also feel guilty. It is normal to have periods of crying. Emotionalrecovery can take longer than physical recovery. It is different for everyone. Taking these steps can help you in managing this loss: Remember that it is unlikely you did anything to cause the loss. Share your thoughts and feelings with friends, family, and your partner. Remember that your partneris also recovering emotionally. Make sure you have a good support system. Do not spend too much time alone. Meet with a loss counselor or join a loss support group. Get enough sleep and eat a healthy diet. Return to regular exercise when you have recovered physically. Do not use drugs or alcohol to manage your emotions. Consider seeing a mental health professional to help you recover emotionally. Ask a friend or loved one to help you decide what to do with any clothing and nursery items you received for your baby. In the case of a stillbirth, many women benefit from taking additional steps in the grieving process. You may want to: Hold your baby after the . Name your baby. Request a certificate. Create a keepsake such as handprints or footprints. Dress your baby and have a picture taken. Make arrangements. Ask for a uatsdin or blessing. Hospitals have staff members who can help you with all these arrangements. How to recognize emotional stress It is normal to have emotional stress after a loss. But emotional stress that lasts a long time or becomes severe requires treatment. Watch out for these signs of severe emotional stress: Sadness, anger, or guilt that is not going away and is interfering with your normal activities. Relationship problems that have occurred or gotten worse since the loss. Signs of depression that last longer than 2 weeks. These may include: ? Sadness. ? Anxiety. ? Hopelessness. ? Loss of interest in activities you enjoy. ? Inability to concentrate. ? Trouble sleeping or sleeping too much. ? Loss of appetite or overeating. ? Thoughts of or of hurting yourself. Follow these instructions at home: Take cejl-huo-alreora and prescription medicines only as told by your health care provider. Rest at home until your energy level returns. Return to your normal activities as told by your health care provider. Ask your health care provider what activities are safe for you. When you are ready, meet with your health care provider to discuss steps to take for a future . Keep all follow-up visits as told by your health care provider. This is important. Where to find support To help you and your partner with the process of grieving, talk with your health care provider or seek counseling. Consider meeting with others who have experienced loss. Ask your health care provider about support groups and resources. Where to find more information U.S. Department of Health and Human Services Office on Women's Health: www.womenshealth.gov [place] Association: www.americanpregnancy.org Contact a health care provider if: You continue to experience grief, sadness, or lack of motivation for everyday activities, and thosefeelings do not improve over time. You are struggling to recover emotionally, especially if you are using alcohol or substances to help. Get help right away if: You have thoughts of hurting yourself or others. If you ever feel like you may hurt yourself or others, or have thoughts about taking your own life,get help right away. You can go to your nearest emergency department or call: Your local emergency services (911 in the [place] A suicide crisis helpline, such as the National Suicide Prevention Lifeline at . Thisis open 24 hours a day. Summary Any loss can be difficult physically and emotionally. You may experience many different emotions while you grieve. Emotional recovery can last longer than physical recovery. It is normal to have emotional stress after a loss. But emotional stress that lasts a long time or becomes severe requires treatment. See your health care provider if you are struggling emotionally after a loss. This information is not intended to replace advice given to you by your health care provider. Make sure you discuss any questions you have with your health care provider. Document Released: 09/26/2018 Document Revised: 11/05/2019 Document Reviewed: 09/26/2018 Elsevier Patient Education 2020 [employer] Additional Information VACCINATE! IT SAVES LIVES! Members of the community who have not yet received the COVID-19 vaccine and would like to receive it can visit one of [facility] vaccine clinics. There are many vaccine clinic locations within the State. For locations and available times, please visit https://gettheshot.coronavirus.[place].gov/. It is important to note that some COVID mobile vaccine clinics are held outdoors and may be canceled in rainy or stormy conditions. To learn more about pediatric vaccinations (ages 5-11), we invite you to visit the [facility] webpage. https://www.[facility].org/pages/0417-Czfdy-Wczemrsmmqo-Gtzsklvrww-Vohup-Kpj stions.htmlTo learn more about the COVID-19 vaccine, we invite you to visit the CDC website for a list of frequently asked questions.https://www.cdc.gov/coronavirus/2019-ncov/vaccines/faq.html [facility] [employer] Patient Portal Access Instructions: Stay connected with your healthcare team and access your personal medical information anytime with the [facility] Patient Portal. Please follow the directions below to create your [facility] account: 1.Access the email account you provided upon registration to the hospital/physician office.2.Look for an invitation email from [facility].3.Open the email and access the invitation link: AcceptInvitation to [facility].4.Fill in the required french to create your account. To access your account, visit [employer]. or scan the [employer] code above. Click the blue button labeled Access Patient Portal and then log in with the username and password that you created in the steps above. You will be able to view your test results, lab results, a summary of your visits, upcoming appointments and more. There is also a convenient messaging option where you can send secure messages to your provider. In addition, you will have the ability to download any documents or summaries to your computer and/or send the information securely to a physician. Remember that your healthcare information is confidential, so carefully consider who you will allowto register on the [facility] Patient Portal for access to your information. You can also access the [facility] Patient Portal on the [facility] lisette. Simply click on Patient Portal and then log into your account. If you would like to receive a full copy of your medical records, please contact the [facility] Medical Records Department by calling [phone], Sunday through Sunday between 8 a.m. and 4:30 p.m. HOW TO SAFELY DISPOSE OF PRESCRIPTION MEDICATIONS [...] Call your local pharmacy or go to [email or web address] [email or web address] to find one close to you.3.Make use of household items: Use cat litter or old coffee grounds to dispose medications if other options arenot available. Mix your drugs with these household products, seal them in an airtight container andthrow it into the garbage. Call [facility]: [phone] to be sure your drugs can be [...] been signed and retained as a CHART COPY. Signatures Patient Education Materials General Anesthesia, Adult, Care After Dilation and Curettage or Vacuum Curettage, Care After Managing Loss Medication Leaflets My discharge plan and instructions have been reviewed and explained to me and IBONITA VICKI J understand my current condition and have read and understand these discharge instructions. I have received a written copy of the plan/instructions. If I have questions, I am aware that I should contact my d apror. Patient/Legal Summer Intern Signature: Date/Time: Relationship to Patient: Witness Name/Signature: Date/Time: [facility]10-16-2025 Anesthesiology Consult note Patient: BETSY MESA Age: 30 years Sex: Female : 1995 Associated Diagnoses: None Author: DIONNE FROST Assessment Postanesthesia assessment Vitals: Measurements from flowsheet . Mental status: at preoperative baseline. Respiratory function: lungs are clear to auscultation. Respiratory support: head of bed elevated===degrees, oxygen FI02===%, oxygen delivery method via simple mask. CV function: Normal rate. Cardiovascular support: none. Pain: Self-reports no pain. Nausea status: denies nausea. Postoperative hydration status: within normal limits. Digitally Signed by DIONNE FROST on 05/14/2025 12:08 PM [facility]10-16-2025 Note [place] ADMISSION HISTORY AND PHYSICIAL CHIEF COMPLAINT: Missed AB HISTORY OF PRESENT ILLNESS: Patient is a 30-year-old 7 para 6 at approximately 7 weeks estimated gestational age who presented to the emergency room at [facility] a little over a week ago with complaints of bleeding. At that time had an IUP and has had continued bleeding since. hCGs have fallen and were rechecked twice this week and again were considerably lower than when she was at the emergency room at [facility]. She continues to have passage of clots and some cramping. Ultrasound that was performed by me definitely showed a failed . REVIEW OF SYSTEMS: Heavy vaginal bleeding with cramping and passage of clots. No urinary or bowel complaints. Review of systems otherwise unremarkable. ACTIVE PROBLEMS: (19) ADD (attention deficit disorder) ([id number]) Anemia (576443406) Breast pain, left (3794196988) Ganglion cyst (8890921442) Gestational diabetes (20190514) Gestational diabetes (94355483) Gestational diabetes mellitus, class A>1< (737609237) Hypokalemia (70883359) Iron deficiency anemia (745534475) Left hip pain (45398725) Missed (4884379286) Prediabetes (1449545770) (518585812) Tobacco use (0233632279) Type 2 diabetes mellitus (855382738) Urinary tract infection (999608992) Vaginal yeast infection (538448526) Viral pharyngitis (1168762) Wrist pain (6606405755) MEDICATIONS: Active Inpt Meds: cefOXitin (Mefoxin) Start: 05/14/25 11:06:00 EDT, Dose = 2 gram(s), IV Piggyback, PREOP pharm, Rate: 200 mL/hr, Infuse over: 30 minute(s), 05/14/25 11:06:00 EDT Active PRN Meds: morphine (morphine ( PACU )) Start: 05/14/25 11:28:00 EDT, Dose = 2 mg, = 1 mL, IV Push, q5min, PRN, Pain, scale 4-6, 10 dose(s), Stop: Limited # of times, 05/14/25 11:28:00 EDT ondansetron (Zofran ( PACU )) Start: 05/14/25 11:28:00 EDT, Dose = 4 mg, = 2 mL, IV Push, AsDirected, PRN, Nausea/Vomiting, 1 dose(s), Stop: Limited # of times, 05/14/25 11:28:00 EDT One Time Meds: None Active IV Meds: Lactated Ringers Infusion 1000 mL (LR 1000 mL) Start: 05/14/25 11:06:00 EDT, Rate: 20 mL/hr, 05/14/25 11:06:00 EDT Lactated Ringers Infusion 1000 mL (LR 1000 mL) Start: 05/14/25 11:28:00 EDT, Rate: 20 mL/hr, 05/14/25 11:28:00 EDT ALLERGIES: (1) Vicodin FAMILY HISTORY: No significant family history pertaining to this admission SOCIAL HISTORY: Stable home environment. No toxic habits. PHYSICAL EXAM: VITALS: No Data Available 24 Hr Tmax: No Data Available 36 Hr Tmax: No Data Available Vital Signs are the last 5 in the past 48 hours. Weights display the last 5 within 7 days. Initial Wt: No Data Available Current Wt: No Data Available GENERAL: Appears well HEENT: Normocephalic CARDIOVASCULAR: Regular rate and rhythm normal blood pressure RESPIRATORY: Clear bilaterally ABDOMEN: Soft nontender no masses. Fundus not palpable. EXREMETIES: No edema NEUROLOGICAL: Intact PSYCHIATRIC: No signs of acute depression or anxiety LABS: 36hr Labs 05/14 1124 WBC7.5 RBC3.77L Hgb11.2L Hct32.9L MCV87.2 MCH29.6 MCHC33.9 RDW16.0H Bydoaksi280 MPV8.9 Neutrophil %58.8 Lymphocyte %31.6 Monocyte %6.2 Eosinophil %2.8 Basophil %0.6 Lymphocyte, Absolute2.4 Monocyte, Absolute0.5 Eosinophil, Absolute0.2 Basophil, Absolute0.0 Neutrophil, Absolute4.4 DIAGNOSTICS: Ultrasound performed by me in the office with no definitive IUP with POC present. IMPRESSION: Falling hCGs and ultrasound with no definitive IUP after having a previous ultrasound that showed an IUP. Missed AB PLAN: Plan for dilation and suction curettage. Procedures, risks, and postoperative expectations were reviewed and consents were obtained. Digitally Signed by CASEY MOULTON MD on 05/14/2025 11:41 AM [facility]10-16-2025 Anesthesiology Consult note Patient: BETSY EMSA Age: 30 years Sex: Female : 1995 Associated Diagnoses: None Author: DIONNE FROST SENIOR TECHNICAL PROJECT MANAGER-DEPUTY GRAND JURY Preoperative Information Time of last food or liquid consumption: 05/14/2025 00:00:00 Anesthesia history Patient's history: negative. Family's history: negative. Review of Systems Ear/Nose/Mouth/Throat: Negative. Respiratory: smoker. Cardiovascular: Negative. Gastrointestinal: obese. Genitourinary: Negative. Endocrine: DM2. Musculoskeletal: Negative. Integumentary: Negative. Neurologic: add. Health Status Allergies: Allergic Reactions (Selected) Severity Not Documented Vicodin- No reactions were documented., Allergies (1) ActiveSeverityReaction VicodinNone Documented Current medications: (Selected) Inpatient Medications Ordered LR 1000 mL: 20 mL/hr, Intravenous LR 1000 mL: 20 mL/hr, Intravenous Mefoxin: 2 gram(s), 200 mL/hr, IV Piggyback, PREOP pharm Zofran ( PACU ): 4 mg, 2 mL, IV Push, AsDirected, PRN: Nausea/Vomiting morphine ( PACU ): 2 mg, 1 mL, IV Push, q5min, PRN: Pain, scale 4-6 Prescriptions Prescribed Blood Glucose Test Machine: See Instructions, 1 glucometer, 1 EA, 0 Refill(s) Blood Glucose Test Strips: See Instructions, check BS daily, 100 EA, 5 Refill(s) DEXCOM G7 SENSOR: See Instructions, PLACE ONE SENSOR ON THE BACK OF THE UPPER ARM EVERY 10 DAYS. USE READER OR PHONE LISETTE FOR DAILY BLOOD SUGAR CHECKS, 3 EA, 0 Refill(s) DME MISCellaneous: See Instructions, BD VENANCIO 2 GEN PEN NDL [id number], 100 EA, 5 Refill(s) Dexcom G7 Dyer: See Instructions, Use reader daily for blood sugar checks. Keep reader within 20 feet of the sensor and transmitter, 1 EA, 0 Refill(s) Dexcom G7 Sensor: See Instructions, Place once sensor to the back of the upper arm every 10 days. Use reader or phone lisette for daily blood sugar checks. 1 month supply., 3 EA, 0 Refill(s) Lancets: See Instructions, test BS daily, 100 EA, 5 Refill(s) ferrous sulfate 325 mg (65 mg elemental iron) oral delayed release tablet: 325 mg, 1 tab(s), Oral, BID, for 30 day(s), 60 tab(s), 3 Refill(s) Documented Medications Documented Prenavite FC oral tablet: TAKE 1 TABLET BY MOUTH EVERY DAY, Medications (5) Active Scheduled: (1) ceFOXitin 2 gram(s), IV Piggyback, PREOP pharm Continuous: (2) Lactated Ringers Infusion 1000 mL 1,000 mL, Intravenous, 20 mL/hr Lactated Ringers Infusion 1000 mL 1,000 mL, Intravenous, 20 mL/hr PRN: (2) morphine 2 mg/mL 1 mL syringe 2 mg 1 mL, IV Push, q5min ondansetron 2 mg/ 1 mL 2 mL INJ 4 mg 2 mL, IV Push, AsDirected Problem list: Medical ADD (attention deficit disorder) / SNOMED CT [id number] / Confirmed Anemia / SNOMED CT 170395881 / Confirmed Vaginal yeast infection / SNOMED CT 570882704 / Confirmed Ganglion cyst / SNOMED CT 6092459430 / Confirmed Gestational diabetes mellitus, class A>1< / SNOMED CT 648251345 / Confirmed Left hip pain / SNOMED CT 42358104 / Confirmed Hypokalemia / SNOMED CT 11389514 / Confirmed Iron deficiency anemia / SNOMED CT 285409985 / Confirmed Missed / SNOMED CT 9050147113 / Confirmed Breast pain, left / SNOMED CT 8400428741 / Confirmed Wrist pain / SNOMED CT 0883860778 / Confirmed Prediabetes / SNOMED CT 8199479683 / Confirmed / SNOMED CT 009741363 / Confirmed Type 2 diabetes mellitus / SNOMED CT 206326110 / Confirmed Urinary tract infection / SNOMED CT 304004715 / Confirmed Viral pharyngitis / SNOMED CT 2028379 / Confirmed, Active Problems (19) ADD (attention deficit disorder) Anemia Breast pain, left Ganglion cyst Gestational diabetes Gestational diabetes Gestational diabetes mellitus, class A>1< Hypokalemia Iron deficiency anemia Left hip pain Missed Prediabetes Tobacco use Type 2 diabetes mellitus Urinary tract infection Vaginal yeast infection Viral pharyngitis Wrist pain Histories Past Medical History: Active ADD (attention deficit disorder) ([id number]) Resolved (327996111): Onset on 01/17/2022 at 26 years. Resolved on 03/05/2022 at 26 years. (758246799): Onset on 10/23/2018 at 23 years. Resolved on 08/04/2019 at 24 years. Comments: 02/27/2017 EDT 15:51 EDT - SYSTEM System added from documentation. Status documented as Yes on Admission (587240402): Onset on 10/16/2016 at 21 years. Resolved in 2018 at 22 years. Induction of labor (566353040): Onset on 05/28/2014 at 19 years. Resolved. (448700030): Onset on 10/20/2013 at 18 years. Resolved in 2014 at 19 years. ([id number]): Onset on 08/16/2013 at 18 years. Resolved on 05/29/2014 at 19 years. ([id number]): Resolved. Comments: 01/01/2022 EDT 0:46 EDT - SYSTEM System added from documentation. Status documented as Yes on Admission Family History: Diabetes mellitus type 1 Sister Diabetes mellitus type 2 Mother Seizure Sister Procedure history: None (421499176). Social History: Social & Psychosocial Habits Alcohol 05/11/2025 Use: Past Frequency: 1-2 times per month Substance Abuse 05/11/2025Risk Assessment: Denies Substance Abuse 05/11/2025 Use: Current Type: Marijuana Frequency: 1-2 times per year Tobacco 05/11/2025 Tobacco Use: Former smoker, quit more Type: Cigarettes 05/11/2025 Tobacco Use: 5-9 cigarettes (between 1 Sexual 05/11/2025 Sexually active: Yes Physical Examination No qualifying data available General: Alert and oriented. Airway: Normal temporomandibular joint mobility. Mallampati classification: III (soft palate, base of uvula visible). Head: Normocephalic. Dentition Evaluation: Own teeth. Neck: Supple. Respiratory: Lungs are clear to auscultation. Cardiovascular: Normal rate. Heart Sounds: Normal. Gastrointestinal: Soft. Musculoskeletal Normal range of motion. Integumentary: Intact. Neurologic: Alert, Oriented. Review / Management Results review: No qualifying data available , Lab results 05/14/2025 11:12 EDT SN - Proc - Anesthesia Type General SN - Proc - Actual Procedure SUCTION DILATION AND CURETTAGE 05/14/2025 11:12 EDT SN - SP - Prep Agents Betadine Scrub, Betadine Solution SN - SP - HR - Method N/A 05/14/2025 11:10 EDT SN - PP - Body Position Lithotomy Standard Intra-op 05/14/2025 11:10 EDT SN - Preop - CTm Pt in SDS Room 05/14/2025 11:06 05/14/2025 11:10 EDT SN - PTCare - Anti-thromboembolism Nanda Sequential Compression Device (SCD) 05/14/2025 11:10 EDT SN - Assess - LOC Alert, Awake SN - Assess - Orientation Oriented X 3 SN - Assess - Post-op Skin Integrity Intact/Dry 05/14/2025 11:09 EDT SN - GCD - Post-operative Diagnosis MISSED SN - GCD - Case Level Level 1 05/14/2025 11:09 EDT SN - CAt - Case Attendee SN - CAt - Case Attendee SN - CAt - Case Attendee SN - CAt - Case Attendee SN - CAt - Case Attendee SN - CAt - Case Attendee SN - CAt - Case Attendee SN - CAt - Case Attendee SN - CAt - Case Attendee SN - CAt - Case Attendee SN - CAt - Role Performed Primary Surgeon SN - CAt - Role Performed DEPUTY GRAND JURY SN - CAt - Role Performed Insulation Machine Operator 1 SN - CAt - Role Performed Scrub 1 SN - CAt - Role Performed Net Developer 1 05/13/2025 12:42 EDT hCG, quantitative 1,796.1 mIU/mL NA . Assessment and Plan [place] Society of Anesthesiologists (ASA) physical status classification: Class III. Anesthetic Preoperative Plan Premedication: intravenous. Anesthetic technique: General. Induction: intravenously. Maintenance airway: Laryngeal mask airway. Postoperative pain management: Per surgeon. Risks discussed: nausea, vomiting, sore throat. Informed consent: signed by patient. Digitally Signed by DIONNE FROST on 05/14/2025 11:30 AM [facility]10-12-2025 Discharge summary [facility] Medical Records Department [address] [place] [address] Emergency Department Summary 05/10/25 MR#: [id number] Acct: [id number] Name: BETSY MESA Rep #:[id number] : 1995 30 From: Nelson Ulloa DO PCP: ARLINE CORADO Status:DEP ER Location: ED HPI HPI - Female History of Present Illness Chief Complaint: Vag Bld, Preg Informant: patient Narrative Narrative: Patient is a 30-year-old female who is a G7, P5 at approximately 6 weeks . She was seen on May 03 and May 06 secondary to lower abdominal cramping and vaginal bleeding. She had an ultrasound done on the and with documented a IUP but also noticed an abnormal fluid collection adjacent to the gestational sac. The patient states that this evening she once again noticed some abdominal lower cramping and then went to the bathroom and had blood from the vagina. She states that she does not have a history of bleeding disorder nor does she take blood thinners. She states she alsohas an appointment with her TECHNOLOGY RESOURCE TEACHER in roughly 24 hours but because of the return bleeding she was concerned and presents for evaluation [facility] Medical History Migraine Anxiety Paresthesias Cervical radiculopathy Cervicalgia Home Medications ?Medication ?Instructions ?Recorded ?Last Taken ?Type cephalexin 500 mg capsule 500 mg PO TID 5 days #15 cap s 05/03/25 Unknown Rx vitamins no.102-iron 90 1 cap PO DAILY #30 ca ps 05/06/25 Unknown Rx mg-folate 1 mg-dha 200 mg capsule Allergy/AdvReac Type Severity Reaction Status Date / Time acetaminophen (From Vicodin) Allergy Hives Verified 05/10/25 02:02 hydrocodone (From Vicodin) Allergy Hives Verified 05/10/25 02:02 Family History Other Cancer Diabetes Seizures Social History Smoking Status: Current every day smoker tobacco type: cigarettes Tobacco: How many years used: 6 second hand exposure: Yes alcohol intake: current alcohol intake frequency: holidays/special occasions only substance use type: former substance user Date of last use: used some marijuanain the past ROS ROS ED Constitutional Constitutional ED: Denies chills or fever(s) Eyes Eyes: Denies change in vision ENT ENT ED: Denies sore throat Cardiovascular Cardiovascular: Denies chest pain Respiratory/Chest Respiratory/Chest: Denies cough or dyspnea Gastrointestinal Gastrointestinal: Reports abdominal pain; Denies diarrhea, nausea or vomiting Genitourinary Genitourinary ED: Reports other Details: Positive vaginal bleeding Musculoskeletal Musculoskeletal: Denies myalgias Integumentary Denies rash Neurologic Neurologic: Denies headache(s) Hematologic/Lymphatic Hematologic/Lymphatic: Denies easy bleeding or easy bruising EXAM Physical Exam Const Vital Signs: 05/10/25 01:59 05/10/25 02:43 05/10/25 03:54 Temperature 98.5 F 97.1 F L Temperature Source Oral Pulse Rate 108 H 77 Respiratory Rate 18 16 Respiratory Effort Normal Non-Labored Respiratory Pattern Normal Blood Pressure 130/84 H 140/91 H Blood Pressure Mean 99 107 Pulse Ox 98 99 Oxygen Delivery Method Room Air Positive well nourished and well developed General Appearance ED: well developed; Negative for pallor HEENT HEENT Narrative: Normocephalic atraumatic Eyes PERRL and EOMs intact bilaterally General Eye ED: Negative for pale conjunctiva or scleral icterus Neck supple Resp normal respiratory effort and clear to auscultation bilaterally Cardio regular rate and regular rhythm GI normal to inspection, nondistended, normoactive bowel sounds, soft to palpation,non-tender, non-distended and no masses GI Narrative: No voluntary guarding or rigidity or pulsatile mass. No peritoneal signs. No organomegaly Auscultation: normoactive bowel sounds Palpation: soft Extremity normal to inspection and full ROM Neuro oriented x3, CN's II-XII intact bilaterally and no sensory deficits noted Sensorium / Orientation: alert Motor Exam: strength 5/5 throughout Psych mental status grossly normal Skin no rashes or lesions noted and no wounds General Skin Exam: Negative for jaundice or pallor MDM MDM MDM Narrative Medical decision making narrative: Patient presented complaining of abdominal cramping with passage of bright red blood per vagina. However she stated it was 1 episode and has not reoccurred orcontinued. Her previous chart was reviewed and the ultrasound report from May 03 and was reviewed indicating an IUP. As she is only 6 weeks along and there is a known IUP I do not feel the need to repeat another emergent ultrasound. At this time basic blood work be obtained to assess for acute bloodloss anemia. Her quantitative value will be measured as well to ensure it is increasing which would correlate with normal progression versus potential miscarriage. Chart review revealed that her blood type is O+ and therefore there is no need for RhoGAM. The patient was watched in the ER and she had no return of bleeding. Therefore at this time as her H&H is stable she does not require RhoGAM and her quantitative hCG value is increasing I do not feel the need for repeat ultrasound or emergent TECHNOLOGY RESOURCE TEACHER consultation and she is otherwise safe for discharge. History & Record Review Discussion w/independent historian: Patient Additional record(s) reviewed:: Prior ED visit and Prior labs Lab Data Attestation: I reviewed the patient's lab results. Labs: Laboratory Results - last 24 hr 05/10/25 02:42 WBC 7.4 RBC 3.90 L Hgb 11.4 L Hct 33.7 L MCV 86.4 MCH 29.2 MCHC 33.8 RDW Std Deviation 47.8 H RDW Coeff of Ghada 15.0 H Plt Count 171 MPV 10.8 Immature Gran % (Auto) 0.300 Neut % (Auto) 54.4 Lymph % (Auto) 37.3 Fergus % (Auto) 5.7 Eos % (Auto) 2.0 Baso % (Auto) 0.3 Absolute Neuts (auto) 4.0 Absolute Lymphs (auto) 2.75 Nucleated RBC % 0 HCG, Quant 55333 H Discharge Plan Triage Chief Complaint: Vag Bld, Preg ED Provider: Nelson Ulloa Dx/Rx/DC Orders Clinical Impression: Vaginal bleeding in , Anxiety, Abnormal collection of fluid in uterinecavity Instructions: Bleeding During Early Prescriptions: No Action cephalexin 500 mg capsule 500 mg PO TID 5 Days Qty: 15 0RF PNV [id number] 90 mg iron- 1 mg-200 mg capsule 1 cap PO DAILY Qty: 30 0RF Stand Alone Forms: ED Work / School Excuse Primary Care Provider: ARLINE CORADO Referrals: ARLINE CORADO [Other] Activity Restrictions/Additional Instructions: Please keep your appointment for tomorrow/Sunday, May 11 with your TECHNOLOGY RESOURCE TEACHER. Your blood volume has remained stable and your marker increased from 12,000-22,000-36,000 indicating a normal progression in . Return to the ER should you have any further concerns Print Language: Tongan Disposition Disposition: Home, Self Care Discharge Date/Time: 05/10/25 03:55 What to do if you have Problems For any increased pain, shortness of breath, bleeding, nausea or vomiting, chest pain, or any unexpected problems, contact your Primary Care Provider. Call [facility] ([phone]) or report to the closest Emergency Room. Call 911 if necessary. 05/10/25 0510 Cosigner Signature (if applicable): CC: ARLINE CORADO ~ Signed [facility]10-08-2025 Radiology Diagnostic study note [facility] Imaging Services [address] [place] [address] Transvaginal w/Preg US MR#: [id number] Acct: [id number] Name: BETSY MESA Rep #: [id number] : 1995 F 30 From: Aubrie Meléndez MD PCP: ARLINE CORADO Status: REG ER Study:Transvaginal w/Preg US Date of Exam: 05/06/25 Exam# [id number] Ordering Dr: René Mohan MD PROCEDURE: TRANSVAGINAL W/PREG US 05/06/2025 REASON FOR EXAM: VAGINAL BLEEDING TECHNIQUE: Procedure Code: USTVAGP Modality: US Procedure: TRANSVAGINAL W/PREG US COMPARISON: 05/03/2025 FINDINGS Single intrauterine gestational sac measuring 1.4 cm corresponding with gestational age of 6 weeks and 2 days. Yolk sac measures 3 mm. CRL measures 7 mm corresponding with 6 weeks and 5 days. heart rate of 123 beats per minute. Complex structure is noted adjacent to gestational sac measuring 2.2 x 3.4 x 1.8 cm. Overall sonographic gestational age of 6 weeks and 4 days with KORINA of 12/26/2025. Uterus measures 12.8 x 9.3 x 7.2 cm. No uterine fibroids are noted. Cervix is closed. No free fluidwithin the cul-de-sac. Right ovary measures 3.7 x 2.0 x 1.7 cm and left ovary measures 3.4 x 2.4 x 2.5 cm. A cyst is notedwithin the right ovary measures 1.5 x 1.0 x 0.8 cm. US/Transvaginal w/Preg US IMPRESSION: Sonographic gestational age of 6 weeks and 4 days with KORINA of 12/26/2025. Interval visualization of yolk sac and embryo. Again seen is a complex structure adjacent to the gestational sac now measuring 2.2 x 3.4 x 1.8 cm. Reading Location: [id number] CC: Dr. René Mohan MD; ARLINE CORADO ~ Pulverizer Feeder: Signed [facility]10-05-2025 Discharge summary [facility] Medical Records Department [address] [place] [address] Emergency Department Summary 05/03/25 MR#: [id number] Acct: [id number] Name: BETSY MESA Rep #:[id number] : 1995 30 From: Ludwig child DO PCP: ARLINE CORADO Status:REG E R Location: ED HPI HPI - Female History of Present Illness Chief Complaint: Narrative Narrative: Chief complaint and HPI: 30-year-old female who is who is 6 weeks by last menstrual period presents for evaluation of pelvic cramping andheadache. Patient states her last menstrual cycle was 03/24/2025. States her PCP took a blood test which showed she was . Patient states for the past 2 days she has been having a headache with pelvic cramping. Denies any vaginal bleeding.Endorses nausea without vomiting. Denies any fever, chills, shortness of breath, chest pain, URI symptoms. Review of systems: See HPI Medications: As listed on the chart Allergies: As listed on the chart PFSH: Per chart Vital signs: As listed on the chart. Reviewed. Physical exam: Gen: A&O x3, NAD Head: Normocephalic, atraumatic Eyes: No sclera icterus, conjunctiva clear, PERRL ENT: Moist mucous membranes Neck: Trachea midline, full range of motion CV: RRR, no murmurs, no peripheral edema Resp: Lungs CTA BL, no w/r/c GI: Abd soft, non-distended, non-tender, no r/r/g Musc: Full ROM, no deformity Skin: Warm, dry Neuro: Alert, oriented, grossly intact, sensation intact Psych: Cooperative, appropriate mood and affect PFSH PFSH Medical History Anxiety Paresthesias Cervical radiculopathy Cervicalgia Home Medications ?Medication ?Instructions ?Recorded ?Last Taken ?Type metformin 500 mg tablet 500 mg PO DAILY 04/03/24 Unk nown History ibuprofen 600 mg tablet 600 mg PO 4X/DAY PRN pain #4 0 tabs 02/05/25 Unknown Rx Allergy/AdvReac Type Severity Reaction Status Date / Time acetaminophen (From Vicodin) Allergy Hives Verified 05/03/25 19:30 hydrocodone (From Vicodin) Allergy Hives Verified 05/03/25 19:30 Family History Other Cancer Diabetes Seizures Social History Smoking Status: Current every day smoker tobacco type: cigarettes Tobacco: How many years used: 6 second hand exposure: Yes alcohol intake: current alcohol intake frequency: holidays/special occasions only substance use type: former substance user Date of last use: used some marijuanain the past EXAM Physical Exam Const Vital Signs: 05/03/25 19:30 05/03/25 21:30 Temperature 97.8 F Temperature Source Temporal Pulse Rate 84 72 Respiratory Rate 18 18 Blood Pressure 140/94 H 132/87 H Blood Pressure Mean 109 102 Pulse Ox 98 100 Oxygen Delivery Method Room Air MDM MDM MDM Narrative Medical decision making narrative: 30-year-old female who is who is 6 weeks by last menstrual period presents for evaluation of pelvic cramping and headache. Patient states her last menstrual cycle was 03/24/2025. States her PCP took a blood test which showed she was . Patient states for the past 2 days she has been havinga headache with pelvic cramping. Denies any vaginal bleeding. Endorses nausea without vomiting. States she has been taking Tylenol with minimal relief. Differential diagnosis includes but is not limited to tension headache, migraineheadache, dehydration, electrolyte abnormality, anemia, UTI, ectopic , symptomatic first trimester . Offered Tylenol for her headache although she states she wants something stronger as Tylenol is not working. I did offer morphine however told her that it can make headaches worse as well as there is some risk to the infant. Patient confirmed she understands of the risks but consented to morphine. Morphine, Zofran, NS bolus ordered. G iven patient has no history of migraines or consistent headaches in the past we will perform CT head, however low suspicion for any intracranial abnormality. Laboratory workup ordered including transvaginal ultrasound. CBC without leukocytosis. Patient has baseline anemia of 11.7. Platelets unremarkable. BMP unremarkable. Beta-hCG 12,116. UA negative for UTI. This is also not a clean sample with squamous epithelial cells. Patient does have bacteria in her urine we will treat her for asymptomatic bacteriuria in . CT of the brain shows no acute intracranial abnormality. Transvaginal ultrasound shows intrauterine gestational sac with an estimated gestational age of 5 weeks 5 days. No pole or yolk sac is identified at this time. Represents early IUP. Mixed echogenic area withinthe lower uterine cavity probably representingnonspecific fluid. On reevaluation, patient's headache has improved. Patient'sabdominal cramping is likely secondary to early cramping. Follow-up with her TECHNOLOGY RESOURCE TEACHER Lamonte. She confirmed understand the plan. Return cautions explained. Patient will discharge home Impression: 1. First trimester with pelvic cramping 2. Headache 3. Asymptomatic bacteriuria in Lab Data Labs: Laboratory Results - last 24 hr 05/03/25 05/03/25 20:30 20:41 WBC 8.3 RBC 4.10 L Hgb 11.7 L Hct 35.4 L MCV 86.3 MCH 28.5 MCHC 33.1 RDW Std Deviation 49.6 H RDW Coeff of Ghada 15.6 H Plt Count 169 MPV 10.6 Immature Gran % (Auto) 0.200 Neut % (Auto) 57.7 Lymph % (Auto) 34.3 Fergus % (Auto) 5.6 Eos % (Auto) 1.8 Baso % (Auto) 0.4 Absolute Neuts (auto) 4.8 Absolute Lymphs (auto) 2.84 Nucleated RBC % 0 Sodium 136 Potassium 4.3 Chloride 104 Carbon Dioxide 21.7 Anion Gap 11 BUN 9 Creatinine 0.69 L Estim Creat Clear Calc 159.34 Est GFR (MDRD) Non-Af 120 BUN/Creatinine Ratio 12.3 Glucose 126 H Calcium 9.6 HCG, Quant 44279 H Urine Color Yellow Urine Clarity Clear Urine pH 6.0 Ur Specific Treece 1.025 Urine Protein 30 H Urine Glucose (UA) Normal Urine Ketones Negative Urine Occult Blood Negative Urine Nitrite Negative Urine Bilirubin Negative Urine Urobilinogen Normal Ur Leukocyte Esterase 25 H Urine RBC 0-5 SEEN Urine WBC 10-25 SEEN Ur Squamous Epith Cells 10-25 SEEN Ur Transition Epith Cell 0-5 SEEN Urine Bacteria 1+ Urine Mucus 0 SEEN Radiography Diagnostic Testing: Clinical Impression(s) from Imaging Studies Obstetrics Ultrasound 05/03/25 20:23 IMPRESSION: 1. Intrauterine gestational sac with an estimated gestational age of 5 weeks 5 days +/-10 days by mean sac diameter. No pole nor yolk sac is identified at this time. This likely represents a very early intrauterine . Recommend serial beta HCG levels and a short interval follow-up pelvic ultrasound. 2. Mixed echogenic area within the lower uterine cavity, probably representing nonspecific fluid. Attention should be paid on follow-up imaging. Reading Location: [facility] Brain CT 05/03/25 21:10 IMPRESSION: No acute intracranial CT abnormality. Reading Location: [facility] Discharge Plan Triage Chief Complaint: ED Provider: Ludwig Aranda Dx/Rx/DC Orders Prescriptions: No Action metformin 500 mg tablet 500 mg PO DAILY ibuprofen 600 mg tablet 600 mg PO 4X/DAY PRN (Reason: pain) Qty: 40 0RF Primary Care Provider: ARLINE CORADO Referrals: ARLINE CORADO [Other] Print Language: Tongan What to do if you have Problems For any increased pain, shortness of breath, bleeding, nausea or vomiting, chest pain, or any unexpected problems, contact your Primary Care Provider. Call [facility] ([phone]) or report to the closest Emergency Room. Call 911 if necessary. 05/03/25 7718 Cosigner Signature (if applicable): CC: ARLINE CORADO ~ Signed [facility]10-05-2025 Radiology Diagnostic study note [facility] Imaging Services [address] [place] [address] Transvaginal w/Preg US MR#: [id number] Acct: [id number] Name: BETSY MESA #: [id number] : 1995 F 30 From: Omid Verdugo MD PCP: ARLINE CORADO Status: REG E R Study:Transvaginal w/Preg US Date of Exam: 05/03/25 Exam# [id number] Ordering Dr: Ludwig Gold DO PROCEDURE: TRANSVAGINAL W/PREG US 05/03/2025 REASON FOR EXAM: PELVIC CRAMPING TECHNIQUE: Procedure Code: USTVAGP Modality: US Procedure: TRANSVAGINAL W/PREG US FINDINGS The uterus measures 12.6 x 8.9 x 7.3 cm. Within the uterine cavity, there is a gestational sac witha mean sac diameter of 10 mm, suggestive of an estimated gestational age of 5 weeks 5 days +/-10 days. Nofetal pole nor yolk sac is identified at this time. Mixed echogenic areas noted within the lower uterine cavity, measuring 2.6 x 2.5x 0.9 cm in aggregate, probably representing nonspecific fluid. The right ovary is not visualized. No abnormal right adnexal mass or fluid collection. The left ovary is identified, measuring 3.9 x 3.2 x 2.5 cm. No focal lesion. Color Doppler blood flow is demonstrated within the left ovary. No abnormal left adnexal mass or fluid collection. No free fluid within the pelvis. US/Transvaginal w/Preg US IMPRESSION: 1. Intrauterine gestational sac with an estimated gestational age of 5 weeks 5 days +/-10 days by mean sac diameter. No pole nor yolk sac is identified at this time. This likely represents a very early intrauterine . Recommend serial beta HCG levels and a short interval follow-up pelvic ultrasound. 2. Mixed echogenic area within the lower uterine cavity, probably representing nonspecific fluid. Attention should be paid on follow-up imaging. Reading Location: [id number] CC: Dr. Ludwig Aranda DO; ARLINE CORADO ~ Pulverizer Feeder: Signed [facility]10-05-2025 Radiology Diagnostic study note [facility] Imaging Services [address] [place] [address] Brain/Head without Contrast MR#: [id number] Acct: [id number] Name: BETSY MESA Rep #: [id number] : 1995 F 30 From: Omid Verdugo MD PCP: ARLINE CORADO Status: REG E R Study:Brain/Head without Contrast Date of Exa m: 05/03/25 Exam# [id number] Ordering Dr: Ludwig Gold DO PROCEDURE: BRAIN/HEAD WITHOUT CONTRAST 05/03/2025 REASON FOR EXAM: HEADACHE TECHNIQUE: Procedure Code: CTBR Modality: CT Procedure: BRAIN/HEAD WITHOUT CONTRAST Coronal and Sagittal reconstruction series were provided. One or more dose reduction techniques were used (e.g., Automated exposure control, adjustment of the mA and/or kV according to patient size, use of iterative reconstruction technique. COMPARISON: 02/05/2025. FINDINGS: No acute intracranial hemorrhage. No midline shift. The ventricles are normal in size and configuration. No extra-axial fluid collection is identified. No fracture. The calvarium is intact. The visualized paranasal sinuses and mastoid air cells are clear. CT/Brain/Head without Contrast IMPRESSION: No acute intracranial CT abnormality. Reading Location: [facility] CC: Dr. Ludwig Aranda DO; ARLINE CORADO ~ Pulverizer Feeder: Signed [facility]10-05-2025 Discharge summary Author Ludwig Aranda [facility] Note Date/Time May 03, 2025 11 :29pm [facility] Medical Records Department [address] [place] [address] Emergency Department Summary 05/03/25 MR#: [id number] Acct: [id number] Name: BETSY MESA Rep #:[id number] : 1995 30 From: Ludwig child DO PCP: ARLINE CORADO Status:REG E R Location: ED HPI HPI - Female History of Present Illness Chief Complaint: Narrative Narrative: Chief complaint and HPI: 30-year-old female who is who is 6 weeks by last menstrual period presents for evaluation of pelvic cramping andheadache. Patient states her last menstrual cycle was 03/24/2025. States her PCP took a blood test which showed she was . Patient states for the past 2 days she has been having a headache with pelvic cramping. Denies any vaginal bleeding. Endorses nausea without vomiting. Denies any fever, chills, shortness of breath, chest pain, URI symptoms. Review of systems: See HPI Medications: As listed on the chart Allergies: As listed on the chart PFSH: Per chart Vital signs: As listed on the chart. Reviewed. Physical exam: Gen: A&O x3, NAD Head: Normocephalic, atraumatic Eyes: No sclera icterus, conjunctiva clear, PERRL ENT: Moist mucous membranes Neck: Trachea midline, full range of motion CV: RRR, no murmurs, no peripheral edema Resp: Lungs CTA BL, no w/r/c GI: Abd soft, non-distended, non-tender, no r/r/g Musc: Full ROM, no deformity Skin: Warm, dry Neuro: Alert, oriented, grossly intact, sensation intact Psych: Cooperative, appropriate mood and affect [facility] Medical History Anxiety Paresthesias Cervical radiculopathy Cervicalgia Home Medications ?Medication ?Instructions ?Recorded ?Last Taken ?Type metformin 500 mg tablet 500 mg PO DAILY 04/03/24 Unk nown History ibuprofen 600 mg tablet 600 mg PO 4X/DAY PRN pain #4 0 tabs 02/05/25 Unknown Rx Allergy/AdvReac Type Severity Reaction Status Date / Time acetaminophen (From Vicodin) Allergy Hives Verified 05/03/25 19:30 hydrocodone (From Vicodin) Allergy Hives Verified 05/03/25 19:30 Family History Other Cancer Diabetes Seizures Social History Smoking Status: Current every day smoker tobacco type: cigarettes Tobacco: How many years used: 6 second hand exposure: Yes alcohol intake: current alcohol intake frequency: holidays/special occasions only substance use type: former substance user Date of last use: used some marijuanain the past EXAM Physical Exam Const Vital Signs: 05/03/25 19:30 05/03/25 21:30 Temperature 97.8 F Temperature Source Temporal Pulse Rate 84 72 Respiratory Rate 18 18 Blood Pressure 140/94 H 132/87 H Blood Pressure Mean 109 102 Pulse Ox 98 100 Oxygen Delivery Method Room Air MDM MDM MDM Narrative Medical decision making narrative: 30-year-old female who is who is 6 weeks by last menstrual period presents for evaluation of pelvic cramping and headache. Patient states her last menstrual cycle was 03/24/2025. States her PCP took a blood test which showed she was . Patient states for the past 2 days she has been havinga headache with pelvic cramping. Denies any vaginal bleeding. Endorses nausea without vomiting. States she has been taking Tylenol with minimal relief. Differential diagnosis includes but is not limited to tension headache, migraineheadache, dehydration, electrolyte abnormality, anemia, UTI, ectopic , symptomatic first trimester . Offered Tylenol for her headache although she states she wants something stronger as Tylenol is not working. I did offer morphine however told her that it can make headaches worse as well as there is some risk to the . Patient confirmed she understands of the risks but consented to morphine. Morphine, Zofran, NS bolus ordered. Given patient has no history of migraines or consistent headaches in the past we will perform CT head, however low suspicion for any intracranial abnormality. Laboratory workup ordered including transvaginal ultrasound. CBC without leukocytosis. Patient has baseline anemia of 11.7. Platelets unremarkable. BMP unremarkable. Beta-hCG 12,116. UA negative for UTI. This is also not a clean sample with squamous epithelial cells. Patient does have bacteria in her urine we will treat her for asymptomatic bacteriuria in . CT of the brain shows no acute intracranial abnormality. Transvaginal ultrasound shows intrauterine gestational sac with an estimated gestational age of 5 weeks 5 days. No pole or yolk sac is identified at this time. Represents early IUP. Mixed echogenic area within the lower uterine cavity probably representingnonspecific fluid. On reevaluation, patient's headache has improved. Patient'sabdominal cramping is likely secondary to early cramping. Follow-up with her TECHNOLOGY RESOURCE TEACHER Lamonte. She confirmed understand the plan. Return cautions explained. Patient will discharge home Impression: 1. First trimester with pelvic cramping 2. Headache 3. Asymptomatic bacteriuria in Lab Data Labs: Laboratory Results - last 24 hr 05/03/25 05/03/25 20:30 20:41 WBC 8.3 RBC 4.10 L Hgb 11.7 L Hct 35.4 L MCV 86.3 MCH 28.5 MCHC 33.1 RDW Std Deviation 49.6 H RDW Coeff of Ghada 15.6 H Plt Count 169 MPV 10.6 Immature Gran % (Auto) 0.200 Neut % (Auto) 57.7 Lymph % (Auto) 34.3 Fergus % (Auto) 5.6 Eos % (Auto) 1.8 Baso % (Auto) 0.4 Absolute Neuts (auto) 4.8 Absolute Lymphs (auto) 2.84 Nucleated RBC % 0 Sodium 136 Potassium 4.3 Chloride 104 Carbon Dioxide 21.7 Anion Gap 11 BUN 9 Creatinine 0.69 L Estim Creat Clear Calc 159.34 Est GFR (MDRD) Non-Af 120 BUN/Creatinine Ratio 12.3 Glucose 126 H Calcium 9.6 HCG, Quant 59693 H Urine Color Yellow Urine Clarity Clear Urine pH 6.0 Ur Specific Treece 1.025 Urine Protein 30 H Urine Glucose (UA) Normal Urine Ketones Negative Urine Occult Blood Negative Urine Nitrite Negative Urine Bilirubin Negative Urine Urobilinogen Normal Ur Leukocyte Esterase 25 H Urine RBC 0-5 SEEN Urine WBC 10-25 SEEN Ur Squamous Epith Cells 10-25 SEEN Ur Transition Epith Cell 0-5 SEEN Urine Bacteria 1+ Urine Mucus 0 SEEN Radiography Diagnostic Testing: Clinical Impression(s) from Imaging Studies Obstetrics Ultrasound 05/03/25 20:23 IMPRESSION: 1. Intrauterine gestational sac with an estimated gestational age of 5 weeks 5 days +/-10 days by mean sac diameter. No pole nor yolk sac is identified at this time. This likely represents a very early intrauterine . Recommend serial beta HCG levels and a short interval follow-up pelvic ultrasound. 2. Mixed echogenic area within the lower uterine cavity, probably representing nonspecific fluid. Attention should be paid on follow-up imaging. Reading Location: [id number] Brain CT 05/03/25 21:10 IMPRESSION: No acute intracranial CT abnormality. Reading Location: [facility] Discharge Plan Triage Chief Complaint: ED Provider: Ludwig Aranda Dx/Rx/DC Orders Prescriptions: No Action metformin 500 mg tablet 500 mg PO DAILY ibuprofen 600 mg tablet 600 mg PO 4X/DAY PRN (Reason: pain) Qty: 40 0RF Primary Care Provider: ARLINE CORADO Referrals: ARLINE CORADO [Other] Print Language: Tongan What to do if you have Problems For any increased pain, shortness of breath, bleeding, nausea or vomiting, chest pain, or any unexpected problems, contact your Primary Care Provider. Call [facility] ([phone]) or report to the closest Emergency Room. Call 911 if necessary. 05/03/252328 <Electronically signed by Ludwig Aranda DO> Cosigner Signature (if applicable): CC: ARLINE CORADO ~ Signed [facility] Work Phone: 1(148) 931-876608-26-2025 Note. MICRO - Microbiology PROCEDURE: Urine Culture [O1 [...] Locations *1: This test was performed at: [facility], [address] [place] [address], [address]- , [facility]08-24-2025 Hospital Discharge instructionsAdditional Instructions Your blood work today revealed no clinically significant findings and the blood test for was negative. Your history exam and symptoms are most consistent with a viral infection. This should resolve spontaneously over the course of 7 to 10 days. Return to the ER should you have any further concernsWNationwide Children's Hospital Work Phone: 1(880) 305-549107-23-2025 Hospital Discharge instructions Patient Education 02/18/2025 18:07:52 [...] stores without a prescription. You may use mrun-kzo-iqvmxwl pain medicine to control pain, unless another medicine was prescribed.If you have chronic liver or kidney disease [...] or tingling in the hand or arm 7734-70[address] [employer]. [address] [place] [address], [place] [address]. All rights reserved. This information is not intended as a substitute for professional medical care. Always follow yourhealthcare professional's instructions. 02/18/2025 18:03:58 Ganglion Cyst Ganglion [...] stores without a prescription. You may use zrjb-nqy-ryjfwld pain medicine to control pain, unless another medicine was prescribed.If you have chronic liver or kidney disease [...] or tingling in the hand or arm 9813-2569 [employer]. [address] [place] [address]. All rights reserved. This information is not intended as a substitute for professional medical care. Always follow yourhealthcare professional's instructions. Follow Up Care 02/18/2025 16:58:33 With:ARLINE CORADO APRN-MID LEVEL GAME DESIGNER Address: [address] [place] [address] [phone] When:2-4 days With:THERESA TOLEDO MD, Orthopedic Address: [address] [place] [address] [address] [facility] [place] [address]- [phone] When:2-4 days [facility] 07[facility] Note Discharge Instructions Thank you for allowing [facility] to assist you with your healthcare needs. [...] Up with ARLINE CORADO When:Within 2-4 days Where:[facility] [place] [address]- [phone] Follow Up with THERESA TOLEDO MD, Orthopedic When:Within 2-4 days Where:[address] [place] [address] [address] [facility] [place] [address]- [phone] Allergies Vicodin Medications Please ask your primary [...] check BS daily Unchanged DME (Dexcom G7 Dyer) See instructions Type 2 diabetes mellitus Use [...] instructions BD VENANCIO 2 GEN PEN NDL [id number] Unchanged DME (Lancets) See instructions test BS [...] stores without a prescription. You may use hbmx-xdc-xuwckwu pain medicine to control pain, unless another medicine was prescribed.If you have chronic liver or kidney disease [...] or tingling in the hand or arm [phone] [employer]. [address] [place], [place] [address]. All rights reserved. This information is not intended as a substitute for professional medical care. Always follow yourhealthcare professional's instructions. Ganglion Cyst A ganglion cyst [...] stores without a prescription. You may use xkan-nxj-ttagrrm pain medicine to control pain, unless another medicine was prescribed.If you have chronic liver or kidney disease [...] or tingling in the hand or arm 2092-8685 [employer]. [address] [place] [address], [place] [address]. All rights reserved. This information is not intended as a substitute for professional medical care. Always follow yourhealthcare professional's instructions. Additional Information VACCINATE! IT SAVES LIVES! Members of the community who have not yet received the COVID-19 vaccine and would like to receive it can visit one of [facility] vaccine clinics. There are many vaccine clinic locations within the [facility]. For locations and available times, please visit www.gettheshot.coronavirus.[place].gov/. It is important to note that some COVID mobile vaccine clinics are held outdoors and may be canceled in rainy or stormy conditions. To learn more about pediatric vaccinations (ages 5-11), we invite you to visit the [facility] webpage. https://www.Fridays.org/pages/0007-Xwlhg-Dpsyrpsczjo-Pujfvwwtql-Slxtr-Acy stions.htmlTo learn more about the COVID-19 vaccine, we invite you to visit the CDC website for a list of frequently asked questions. https://www.cdc.gov/coronavirus/2019-ncov/vaccines/faq.html [facility] Patient Portal Access Instructions: Stay connected with your healthcare team and access your personal medical information anytime with the [facility] Patient Portal. If you would like a full copy of your medical records please contact the [facility] Medical Records Department Sunday through Sunday between 8a.m. and 4:30p.m. Please follow the directions below to access the portal: 1.Access the email account you provided upon registration to the hospital.2.Look for an invitation email from [facility].3.Open the email and access the invitation link: Accept Invitation to [facility]4.Fill in the required french to create your account. Sign into [email or web address] with your username and password that you [...] you will allow to register on the [facility] Patient Portal for access to your information. You can also access the [facility] Patient Portal on the Kinsights. Simply click on Health Records under Prezto and then click on the Individual Digital logo. HOW TO SAFELY DISPOSE OF PRESCRIPTION [...] Call your local pharmacy or go to http://Polyera.Bills Khakis/[email or web address] to find one close to you.3.Make use of household items: Use cat litter or old coffee grounds to dispose medications if other options arenot available. Mix your drugs with these household products, seal them in an airtight container andthrow it into the garbage. Call [facility]: [phone] to be sure your drugs can be [...] that I should contact my d octor. Patient/Legal Summer Intern Signature: Date/Time: Relationship to Patient: Witness Name/Signature: Date/Time: [facility]07-23-2025 Note* Exam Date Time Procedure Performing Provider Status 02/18/25 5:34 PM XR Wrist Minimum 3 Views Right SHERIN MENDEZ DO; Auth (Verified) [id number] ORIGINAL EXAMINATION: THREE XRAY VIEWS OF THE [...] Sign Date: 02/18/2025 5:53:14 PM Ordering Provider: [facility]06-16-2025 Discharge summary [facility] Medical Records Department [address] [place] [address] Emergency Department Summary 01/11/25 MR#: [id number] Acct: [id number] Name: BETSY MESA Rep #:[id number] : 1995 29 From: Oseas Aviles MD [...] past with a negative workup done at [facility] 1 to 2 years ago. She denies any nausea, vomiting or diarrhea. No dysuria. No fever. She is on no blood thinners. Prior similar symptoms: Yes Recent Illness/Hospitalization: No PFSH PFSH Medical History Anxiety Paresthesias [...] signs stable afebrile blood pressure is little jirqcyrr157 or 97. She does not look septic [...] normal. NIH 0. No facial droop. 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 Fingertip to nose etce-fr-mazy within normal limits. No drift. Const Vital [...] normal Motor Exam: strength 5/5 throughout Coordination: czwwxb-id-cdgy test normal and wclr-dk-uose test normal Psych mental status grossly normal, [...] % (Auto) 54.7 Lymph % (Auto) 34.7 Fergus % (Auto) 7.3 Eos % (Auto) 2.6 [...] IMPRESSION: No acute intracranial process. Reading Location: [facility] Discharge Plan Triage Chief Complaint: Numb/Ting Other [...] with your primary care physician. Print Language: Tongan Disposition Disposition: Home, Self Care What to do if you have Problems For any increased pain, shortness of breath, bleeding, nausea or vomiting, chestpain, or any unexpected problems, contact your Primary Care Provider. Call [facility] ([phone]) or report tothe closest Emergency Room. Call 911 if necessary. 01/12/25 0144 Cosigner Signature (if applicable): CC: No Primary Care Physician ~ Signed [facility]06-15-2025 Radiology Diagnostic study note [facility] Imaging Services [address] [place] [address] Brain/Head without Contrast MR#: [id number] Acct: [id number] Name: BETSY MESA Rep #: [id number] : 1995 F 29 From: Aubrie Meléndez MD PCP: Care Physician,No Primary Status: REG ER Study:Brain/Head without Contrast Date of Exa m: 01/11/25 Exam# [id number] Ordering Dr: Evelin Aviles MD PROCEDURE: BRAIN/HEAD [...] IMPRESSION: No acute intracranial process. Reading Location: [id number] CC: Dr. Oseas Aviles MD; No Primary Care Physician ~ Pulverizer Feeder: Signed [facility]06-15-2025 Discharge summary Author Oseas Aviles [facility] Note Date/Time January 12, 2025 1:44 am [facility] Medical Records Department [address] [place] [address] Emergency Department Summary 01/11/25 MR#: [id number] Acct: [id number] Name: BETSY MESA Rep #:[id number] : 1995 29 From: Oseas Aviles MD [...] past with a negative workup done at [facility] 1 to 2 years ago. She denies any nausea, vomiting or diarrhea. No dysuria. No fever. She is on no blood thinners. Prior similar symptoms: Yes Recent Illness/Hospitalization: No PFSH PFSH Medical History Anxiety Paresthesias [...] normal. NIH 0. No facial droop. 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 Fingertip to nose btzc-tg-kddh within normal limits. No drift. Const Vital [...] normal Motor Exam: strength 5/5 throughout Coordination: hbotig-en-pmqv test normal and tpqi-sz-vnoe test normal Psych mental status grossly normal, [...] % (Auto) 54.7 Lymph % (Auto) 34.7 Fergus % (Auto) 7.3 Eos % (Auto) 2.6 [...] IMPRESSION: No acute intracranial process. Reading Location: [facility] Discharge Plan Triage Chief Complaint: Numb/Ting Other [...] with your primary care physician. Print Language: Tongan Disposition Disposition: Home, Self Care What to do if you have Problems For any increased pain, shortness of breath, bleeding, nausea or vomiting, chestpain, or any unexpected problems, contact your Primary Care Provider. Call [facility] ([phone]) or report to the closest Emergency Room. Call 911 if necessary. 01/12/25 0144 <Electronically signed by Oseas Aviles MD> Cosigner Signature (if applicable): CC: No Primary Care Physician ~ Signed [facility] Work Phone: 1(593) 429-136503-04-2025 Hospital Discharge instructions Patient Education 09/30/2024 11:35:01 [...] face You have trouble talking or seeing 2539-4855 [employer]. [address] [place] [address]. All rights reserved. This information is not intended as a substitute for professional medical care. Always follow yourhealthcare professional's instructions. Follow Up Care 09/30/2024 10:02:36 With:[facility] [place] Address: When:2-4 days With:ARLINE CORADO [facility] Address: [facility] [place] [address]- [phone] When:2-4 days [facility] 03-04-2025 Note Discharge Instructions Thank you for allowing [facility] to assist you with your healthcare needs. [...] Up with ARLINE CORADO When:Within 2-4 days Where:[address] [facility] [place] [address] [phone] Allergies Vicodin Medications Please ask your primary [...] check BS daily Unchanged DME (Dexcom G7 Dyer) See instructions Type 2 diabetes mellitus Use [...] instructions BD VENANCIO 2 GEN PEN NDL [id number] Unchanged DME (Lancets) See instructions test BS [...] face You have trouble talking or seeing 5156-2744 [employer]. [address] [place] [address], [place] [address]. All rights reserved. This information is not intended as a substitute for professional medical care. Always follow yourhealthcare professional's instructions. Additional Information VACCINATE! IT SAVES LIVES! Members of the community who have not yet received the COVID-19 vaccine and would like to receive it can visit one of [facility] vaccine clinics. There are many vaccine clinic locations within the [facility]. For locations and available times, please visit www.gettheshot.coronavirus.[place].gov/. It is important to note that some COVID mobile vaccine clinics are held outdoors and may be canceled in rainy or stormy conditions. To learn more about pediatric vaccinations (ages 5-11), we invite you to visit the [facility] webpage. https://www.[facility].org/pages/9513-Krhef-Dpccleqlkpj-Rausplicmn-Qenbi-Iex stions.htmlTo learn more about the COVID-19 vaccine, we invite you to visit the CDC website for a list of frequently asked questions. https://www.cdc.gov/coronavirus/2019-ncov/vaccines/faq.html [facility] Patient Portal Access Instructions: Stay connected with your healthcare team and access your personal medical information anytime with the [facility] Patient Portal. If you would like a full copy of your medical records please contact the [facility] Medical Records Department Sunday through Sunday between 8a.m. and 4:30p.m. Please follow the directions below to access the portal: 1.Access the email account you provided upon registration to the [facility].2.Look for an invitation email from [facility].3.Open the email and access the invitation link: Accept Invitation to [facility]4.Fill in the required french to create your [...] you will allow to register on the [facility] Patient Portal for access to your information. You can also access the [facility] Patient Portal on the Goojet lisette. Simply click on Health Records under Prezto and then click on the Individual Digital logo. HOW TO SAFELY DISPOSE OF PRESCRIPTION [...] Call your local pharmacy or go to http://Polyera.Bills Khakis/7J2Os1q to find one close to you.3.Make use of household items: Use cat litter or old coffee grounds to dispose medications if other options arenot available. Mix your drugs with these household products, seal them in an airtight container andthrow it into the garbage. Call [facility]: [phone] to be sure your drugs can be [...] been reviewed and explained to me and I,BONITA BETSY Waters understand my current condition and have read and understand these discharge instructions. I have received a written copy of the plan/instructions. If I have questions, I am aware that I should contact my d octor. Patient/Legal Summer Intern Signature: Date/Time: Relationship to Patient: Witness Name/Signature: Date/Time: [facility]10-08-2024 Nurse Note* Irma Lin RN - 05/06/2024 3:54 PM EDT Pre Procedure Assessment: Betsy Evelin Mesa is a 29 year old here [...] g/dL Final Rhophylac Administered:No Procedure start time: 1624 Procedure end time: 1635 Post Procedure Assessment: Time of first post-procedure assessment: 1635 Vitals: BP 118/84 HR 94 SpO2 100 RR 20 Bleeding:Light Pain ratin/10 Time of second post-procedure assessment: 1655 Vitals: BP 114/72 HR 97 SpO2 99 RR 20 Bleeding:Light Pain Ratin/10 Irma Lin RN [facility]10-08-2024 Instructions* Patient Instructions* Deana Sethi RN - [...] and showers are OK. Important Phone Numbers: [facility] Appointments in Treasurer ( Early Assessment Clinics) Tiffany Cormier [facility], [facility]1983 at [phone] [facility] at [phone] [facility] at [phone] After 4:30 PM or on weekends, you may reach the on-call Treasurer by calling the clinic where you wereseen. [...] for diagnosis or termination for medical reasons. http://www.Voucheres.Endeca/ [facility]: ending a for a abnormality http://www.healthtalkonline.org/Pregnancy_children/Ending_a_pregnancy_for_fetal_ abnormality Ending a Wanted : support for patients and families ending a after or maternal medical diagnosis https://endingawantedpregnancy.Endeca Defending Terese: one person's story about loss and collected resources. http://www.Bueno Inc Taya Gift: headquarters in [place] but with online support group https://www.iYogi/edpdas-heqx-ohamobx-groups.html LOCAL RESOURCES Love Lives On, [facility] https://my.[facility].org/locations/[facility]/guest-services/suppo rt Juan C.E.L.(Families Experiencing Early Loss) [facility] https://consultqd.[facility].org/tfcvxsowh-iggrqytku-cvieliejvzd-program-james xqocnn-synrfjxo-piaqlnyp/ [facility] - counseling services [phone] or toll free at [phone] [facility] Support Groups (not specific to loss) https://my.[facility].org/patients/information/bereavement/support-groups [facility] Bereavement Center Counselors with experience with families facing the loss of a baby before . This service may be covered by your insurance. If not, [facility] will not turn anyone away because of inability to pay. or [phone] Ramirez Blake, local counselor, not associated with [facility] [phone] Some of our families have recommended Ramirez [...] for induction of labor) documented in this encounterCinc[facility]10-08-2024 Nurse Note* Irma Lin, TRUMAN - 05/06/2024 3:54 PM EDT Pre Procedure [...] g/dL Final Rhophylac Administered:No Procedure start time: 1624 Procedure end time: 1634 Post Procedure Assessment: Time of first post-procedure assessment: 163 Vitals: BP 118/84 HR 94 SpO2 100 RR 20 Bleeding:Light Pain ratin/10 Time of second post-procedure assessment: 1655 Vitals: BP 114/72 HR 97 SpO2 99 RR 20 Bleeding:Light Pain Ratin/10 Irma Lin RN documented in this encounterCincinnati [facility]'S [facility]10-08-2024 NoteHNO ID: [id number] Author: LEELA CURRIE MD Service: ? Author Type: Physician Type: Progress Notes Filed: 05/07/2024 10:35 Note Text: Betsy Mesa is a 29 year old female who presents for problem visit for vaginal bleeding, falling HCG levels. Patient's last menstrual period was 02/18/2024 (within days). Last week was seen for this and dx w/ SAB. Last night started bleeding and went to [facility] ED but long wait so went to [place] ED and they offered patient to go to [facility] or f/u in office. Patient was d/jose home to f/u today. Having waves of cramping nad passing clots, bleeding heavier than a period. Soaked through pads last night then it slowed and passed more clots. OB History T3 L3 SAB0 IAB0 Ectopic0 Multiple0 Live Births3 Hand Tacker History LMP: 02/18/2024 (Within Days), Recent Age at Menarche: Age at First : Age at Menopause: Hand Tacker History Comments: Sexual Activity: Yes; Male Contraception: [...] discussed with the Patient or Patient's Authorized Legal Summer Intern. As applicable, any other physician, advance practice provider, medical student, or other health professional student that will be observing or involved in the sensitive examination for educational or training purposes was discussed with the Patient or Authorized Legal Summer Intern. The Patient or Authorized Legal Summer Intern has agreed to proceed with the sensitive examination. (Sensitive examination includes inspection and/or palpation of the breasts, pelvis, prostate and anorectal regions). EXAM: Wt 212 lb (96.2kg) LMP 02/18/2024 GENERAL: in pain, female in mild distress ABDOMEN: soft, non-tender, and no masses PELVIC: external genitalia normal, normal Bartholin's glands, urethra, Wynnburg's glands, no vulvar lesions, no cervical lesions, [...] Currie MD Procedure note (more content not included)...[facility] 05-06-2024 History of Present illness Narrative* Leela Currie MD - 05/06/2024 2:58 PM EDT Betsy Mesa is a 29 year old female who presents for problem visit for vaginal bleeding, falling HCG levels. Patient's last menstrual period was 02/18/2024 (within days). Last week was seen for thisand dx w/ SAB. Last night started bleeding and went to [facility] ED but long wait so went to [place] EDand they offered patient to go to [facility] or f/u in office. Patient was d/jose home to f/u today. Having waves of cramping nad passing clots, bleeding heavier than a period. Soaked through pads last night then it slowed and passed more clots. OB History T3 L3 SAB0 IAB0 Ectopic0 Multiple0 Live Births3 Hand Tacker History LMP: 02/18/2024 (Within Days), Recent Age at Menarche: Age at First : Age at Menopause: Hand Tacker History Comments: Sexual Activity: Yes; Male Contraception: [...] discussed with the Patient or Patient's Authorized Legal Summer Intern. As applicable, any other physician, advance practice provider, medical student, or other health professional student that will be observing or involved in the sensitive examination for educational or training purposes was discussed with the Patient or Authorized Legal Summer Intern. The Patient or Authorized Legal Summer Intern has agreed to proceed with the sensitive examination. (Sensitive examination includes inspection and/or palpation of the breasts, pelvis, prostate and anorectal regions). EXAM: Wt 212 lb (96.2kg) LMP 02/18/2024 GENERAL: in pain, female in mild distress ABDOMEN: soft, non-tender, and no masses PELVIC: external genitalia normal, normal Bartholin's glands, urethra, Wynnburg's glands, no vulvar lesions, no cervical lesions, [...] prn Leela Currie MD documented in this encounterCinc[facility]10-07-2024 Telephone encounter Note * Telephone Encounter - Scarlett Robledo RN - 05/05/2024 12:23 PM EDT Spoke with patient. She will have another HCG level drawn today since she has an appointment with [facility] on Sunday. Bleeding a little more. Changing a pad every 2-3 hours for comfort. Not soaking a pad. Scarlett Robledo RN [facility]10-07-2024 Miscellaneous Notes* Telephone Encounter - Scarlett Robledo [...] levels. Jose Aranda APRN.CNM documented in this encounterCincinnati Children'S [facility]10-04-2024 Telephone encounter Note * Telephone Encounter - Irma Lin RN - 05/02/2024 1:59 PM EDT CP notified Pt. Please leave phone note open to f/u on HCG results. Irma Lin RN [facility]10-04-2024 Telephone encounter Note* Telephone Encounter - Irma Lin RN - 05/02/2024 1:59 PM EDT ----- Message from Jose Aranda APRN.CNM sent at 05/02/2024 1:12 PM EDT ----- HCG level is decreasing. Patient aware that she needs to complete follow up levels. Jose Aranda APRN.CNM [facility]10-03-2024 NoteHNO ID: [id number] Author: KESHAWN MOSCOSO MD Service: ? Author Type: Physician Type: Progress Notes Filed: 05/01/2024 20:43 Note Text: Betsy Mesa is a 29 year old female who presented for field tech ultrasound today. Encounter Diagnosis ICD-10-CM 1. with uncertain dates in first trimester Z34.91 Please see report under imaging tab. Keshawn Moscoso MD May 01, 2024 8:37 [facility]10-03-2024 History of Present illness Narrative * Keshawn Moscoso MD - 05/01/2024 8:36 PM EDT Betsy Mesa is a 29 year old female who presented for field tech ultrasound today. Encounter Diagnosis ICD-10-CM 1. with uncertain dates in first trimester Z34.91 Please see report under imaging tab. Keshawn Moscoso MD May 01, 2024 8:37 PM documented in this encounterCinc[facility]-2024 NoteHNO ID: [id number] Author: JOSE ARANDA APRN.CNM Service: ? Author Type: Assistant Mechanic Type: Progress Notes Filed: 05/01/2024 14:31 Note [...] she started spotting and cramping this morning. Hand Tacker History LMP: 02/18/2024 (Within Days), Age at Menarche: Age at First : Age at Menopause: Hand Tacker History Comments: Sexual Activity: Yes; Male Contraception: [...] - No s/s of ectopic per US deburr technician - Current gestational sac is 82 [...] voice understanding - Support provided Jose Aranda APRN.[facility]10-03-2024 History of Present illness Narrative* Jose Aranda APRN.[facility] - 05/01/2024 1:45 PM EDT Betsy Mesa [...] she started spotting and cramping this morning. Hand Tacker History LMP: 02/18/2024 (Within Days), Age at Menarche: Age at First : Age at Menopause: Hand Tacker History Comments: Sexual Activity: Yes; Male Contraception: [...] - No s/s of ectopic per US deburr technician - Current gestational sac is 82 [...] provided Jose Aranda APRN.CNM documented in this encounterCinc[facility]09-[facility]-2024 NoteHNO ID: [id number] Author: SUSHIL VILLANUEVA APRN.CNP Service: ? Author [...] L3 SAB0 IAB0 Ectopic0 Multiple0 Live Births3 Hand Tacker History LMP: 02/18/2024 (Within Days), Having periods Age at Menarche: Age at First : Age at Menopause: Hand Tacker History Comments: Sexual Activity: Yes; Male Contraception: [...] Assessed 04/28/2024 REVIEW OF SYSTEMS Expanded ROS: SOCIAL WORKER PSYCHIATRIC: + amenorrhea Allergies and current medication updated:Yes SENSITIVE EXAM: The sensitive examination was discussed with the Patient or Patient's Authorized Legal Summer Intern. As applicable, any other physician, advance practice provider, medical student, or other health professional student that will be observing or involved in the sensitive examination for educational or training purposes was discussed with the Patient or Authorized Legal Summer Intern. The Patient or Authorized Legal Summer Intern has agreed to proceed with the sensitive [...] - ICD9: V22.1, ICD10: Z34.91 - POC LICENSING ANALYST ULTRASOUND - HCG QUANTITATIVE - COMPLETE BLOOD COUNT - TYPE + SCREEN - URINE CULTURE - PELVIC US WHI - HEMOGLOBIN A1C RTO for formal ultrasound and visit after or sooner as needed. Sushil Villanueva APRN.MID LEVEL GAME DESIGNER Medical Decision Making: Problems: Moderate: New problem with uncertain prognosis Data: Unique test result(s) reviewed: 2 Unique test(s) ordered: 3+ Risk: Low: Low risk from testing/treatment Medical Decision Making Level: 4 - [facility] History of Present illness Narrative* Sushil Villanueva APRN.MID LEVEL GAME DESIGNER - 04/28/2024 11:28 AM EDT Betsy Mesa [...] L3 SAB0 IAB0 Ectopic0 Multiple0 Live Births3 Hand Tacker History LMP: 02/18/2024 (Within Days), Having periods Age at Menarche: Age at First : Age at Menopause: Hand Tacker History Comments: Sexual Activity: Yes; Male Contraception: [...] Assessed 04/28/2024 REVIEW OF SYSTEMS Expanded ROS: SOCIAL WORKER PSYCHIATRIC: + amenorrhea Allergies and current medication updated:Yes SENSITIVE EXAM: The sensitive examination was discussed with the Patient or Patient's Authorized Legal Summer Intern. As applicable, any other physician, advance practice provider, medical student, or other health professional student that will be observing or involved in the sensitive examination for educational or training purposes was discussed with the Patient or Authorized Legal Summer Intern. The Patient or Authorized Legal Summer Intern has agreed to proceed with the sensitive [...] - ICD9: V22.1, ICD10: Z34.91 - POC LICENSING ANALYST ULTRASOUND - HCG QUANTITATIVE - COMPLETE BLOOD [...] Level: 4 - Moderate documented in this encounterCincinnati [facility]09-27-20[facility] Evaluation + Plan note Future Scheduled Tests Laboratory* Thyroid Stimulating Hormone 04/25/24 * Free T4 04/25/24 * Free T3 04/25/24 Radiology* US Breast Left Complete 09/15/24 [facility] 08-18-2024 Note. MICRO - Microbiology PROCEDURE: Affirm [...] Locations *1: This test was performed at: [facility], [address] [place] [address], [address] , [facility] ([place])02-06-2024 Note. MICRO - Microbiology PROCEDURE: Affirm Pathogens [...] Locations *1: This test was performed at: [address], [facility] , [facility]01-03-2024 Note. MICRO - Microbiology PROCEDURE: Urine Culture [...] Locations *1: This test was performed at: [address], [facility] , [facility] ([facility]01-02-2024 Note. MICRO - Microbiology PROCEDURE: Affirm Pathogens [...] Locations *1: This test was performed at: [facility], [address] [place] [address], [address]- , [facility] ([place])12-11-2023 NoteHNO ID: [id number] Author: GARTH POLANCO RN Service: ? Author Type: Registered Nurse Type: Nursing Progress Note Filed: 12/11/2023 12:58 Note Text: Patient given AVS no questions at this time. Patient walked to main entrance for discharge.[facility]05-13-2024 NoteHNO ID: [id number] Author: LORETA FROST MD Service: Hospital Medicine Author Type: Physician Type: Progress Notes Filed: 12/10/2023 17:34 Note Text: DEPARTMENT OF HOSPITAL MEDICINE Hospital Medicine/Primary Attending: Loreta Frost MD NIGHT AND WEEKEND COVERAGE: After 7pm please page [phone] Subjective: Seen and examined at bedside. No [...] MCV 85.1 RDWCV 15.3* COAG: Recent Labs 12/09/231734 APTT 26.9 INR 1.1 BMP: Recent Labs 12/10/238 12/09/23 1735 12/09/23 1734 GLUC 80 110* [...] Dose Route Frequency Last Action Ordered Stop 12/10/23899 aspirin 81 mg chewable tab(s) 81 mg ORAL DAILY Given, 12/09 89912/09/232343 -- 12/09/232344 activity - mobilize patient (ar,wa) SIGNATURE: Loreta Frost MD PATIENT NAME: Betsy Mesa DATE: December 10, 2023 TIME: 4:02 PM PAGER/CONTACT #: Team color pager Disclaimer: Portions of this note may have been generated using [employer]/LBR voice recognition software. Reasonable efforts were made to correct any dictation errors that resulted due to the programming of this software but some may still be present. Please note, the time of this note does not reflect the time I saw this patient today, but the time of this documentation.[facility]05-13-2024 NoteHNO ID: [id number] Author: BOB JOYA LISW Service: Care Management Author Type: Family Development Specialist Type: Care Mgt Progress Note Filed: 12/10/2023 [...] this time. SIGNATURE: FATEMEH Peng PATIENT NAME: Btesy Mesa DATE: December 10, 2023 TIME: 3:18 PM PAGER/CONTACT #: [phone] NoteHNO ID: [id number] Author: GILA ROTH MD Service: ? Author Type: Physician Type: Progress Notes Filed: 12/09/2023 18:41 Note Text: TELESTROKE DOCUMENTATION Name: Betsy Mesa : 1995 Referring Site: [facility] Referring Provider: Dr. Muniz Last Known Well (Date/Time): 12/09/23 1615 Neurologist Callback (Date/Time): 12/09/23 2761 Chief Complaint: numbness of right face and [...] a telestroke. Thank you for contacting the [facility] Telestroke Network. I appreciate the opportunity for allowing me to participate in Betsy Mesa's care. Please feel free to contact me and/or the [facility] Telestroke Network at any time if you have any further questions or need additional assistance. Lester Roth MD December 09, 2023 6:40 [facility] History of Present illness Narrative* Gila Roth MD - 12/09/2023 6:40 PM EDT TELESTROKE DOCUMENTATION Name: Betsy Evelin Mesa : 1995 Referring Site: [facility] Referring Provider: Dr. Muniz Last Known Well (Date/Time): 12/09/23 161 Neurologist Callback (Date/Time): 12/09/23 5755 Chief Complaint: numbness of right face and [...] a telestroke. Thank you for contacting the [facility] Telestroke Network. I appreciate the opportunity for allowing me to participate in Betsy Mesa's care. Please feel free to contact me and/or the [facility] Telestroke Network at any time if you have any further questions or need additional assistance. Lester Roth MD December 09, 2023 6:40 PM documented in this encounterCincinnati [facility]'S [facility]05-09-2024 Note. MICRO - Microbiology PROCEDURE: Urine Culture [*1] SOURCE: Urine, Clean Catch BODY SITE: COLLECTED DATE/TIME: 12/04/2023 13:30 EDT RECEIVED DATE/TIME: 12/05/2023 07:26 EDT START DATE/TIME: 12/05/2023 07:26 EDT FREE TEXT SOURCE: FINAL REPORTS Final Report [] Verified Date/Time/Personnel: 12/06/2023 14:21 EDT 10,000 - 50,000 cfu/ml Mixed growth consistent with normal urogenital marilu. Performing Locations *1: This test was performed at: [address], [facility] , [facility] ([place])08-11-2023 Hospital Discharge instructions* Additional Discharge Instructions Please keep well hydrated and take your medication as prescribed and follow up closely with your primary care doctor. If the symptoms worsen or new symptoms develop return to the Emergency Department (ED) immediately. Call your doctor for additional questions. ED . Instruction/Education Provided DI for Keke reynoldscharissa -- [facility] 02-28-2023 Hospital Discharge instructions* Discharge Instructions* Serena [...] care or concern. documented in this encounterBON QuickBlox Phone: [phone]) 694-636708-10-2022 Note Discharge Instructions Thank you for allowing [facility] to assist you with your healthcare needs. The following is importantdischarge information regarding your hospital visit. Your Care Team PHYSICIAN, NONE What to do next Follow Up Appointments Follow Up with TECHNOLOGY RESOURCE TEACHER, CLINIC When In 6 weeks 04/18/2022 EDT Why: Follow-up as needed Where: [address] [facility] (Mon-Fri from 8:30am - 5:00pm) [place] [address]- Follow Up with [facility] food program; When Someone Will Contact [...] for as needed for constipation Pickup at [facility] #64914 New ibuprofen (ibuprofen 600 mg oral tablet) 1 tab(s) by mouth Every 6 hours as needed for for pain Take with food or milk. Pickup at [facility] #06231 New insulin glargine (Lantus 100 units/ mL10 ml vial solution) 22 unit(s) Subcutaneous (INT) Once a day (in the evening) Refills: 5 Patient needs 6 week supply of 22 units daily Pickup at [facility] #66854 Changed cyclobenzaprine (cyclobenzaprine 5 mg oral tablet) 1 tab(s) by mouth Three (3) times a day Duration: 7 Days Pickup at [facility] #94743 Unchanged famotidine (Pepcid 20 mg oral tablet) 1 tab(s) by mouth Once a day Unchanged multivitamin, (PNV Select) by mouth Once a day Pharmacy Information [facility] #34681: [address], [place] [phone] What How Much When Comments Stop Taking [...] you. Follow these instructions at home: Take cgml-spq-jrbfrix and prescription medicines only as told by [...] 03/19/2015 Document Revised: 08/22/2019 Document Reviewed: 05/06/2018 ElseDrill Map Patient Education 2020 [employer] Hemorrhage hemorrhage is excessive blood loss [...] spinach, red meat, and legumes. Take any fppr-iam-ftmiwdj and prescription medicines only as told by [...] 10/05/2004 Document Revised: 06/28/2018 Document Reviewed: 02/16/2017 Emergency [employer] Patient Education 2020 [employer] Home Care Instructions After Delivery After [...] decreases and the color of blood gets mobile home set up person. Bright red and increased flow may reoccur [...] tender for several weeks. Take prescription or omwz-mbw-faxxojv medications for pain with your care givers [...] straining when trying to pass a stool. Ewqn-zyc-sainier medications, stool softeners, can be used. Check [...] to receive it can visit one of [facility] vaccine clinics. There are many vaccine clinic locations within the [facility]. For locations and available times, please visit [email or web address]. It is important to note that some COVID mobile vaccine clinics are held outdoors and may be canceled in rainy orstormy conditions. To learn more about pediatric vaccinations (ages 5-11), we invite you to visit the [facility] webpage. https://[email or web address]/pages/[email or web address]-Hicwz-Kptyospxwul-Oxwnwxzptm-Kbgls-Yfq stions.htmlTo learn more about the COVID-19 vaccine, we invite you to visit the [facility] website for a list of frequently asked questions. [email or web address]/gzgja-Vcxgxya-Yhkmimojee _[email or web address]-Questions.pdf [facility] Patient Portal Access Instructions: Stay connected with your healthcare team and access your personal medical information anytime with the [facility] Patient Portal.If you would like a full copy of your medical records, please contact the [facility] Medical Records Department, Sunday through Sunday between 8a.m. and 4:30p.m. Please follow the directions below to access the portal: 1.Access the email account you provided upon registration to the advanced [facility] hospital.2.Look for an invitation email from [facility].3.Open the email and access the invitation link: Accept Invitation to [facility]4.Fill in the required french to create your account. Sign into [email or web address] with your username and password that you [...] you will allow to register on the [facility] Patient Portal for access to your information. You can also access the [facility] Patient Portal on the Kinsights. Simply click on Health Records under Prezto and then click on the [employer] logo. HOW TO SAFELY DISPOSE OF PRESCRIPTION [...] Call your local pharmacy or go to http://Polyera.Bills Khakis/[email or web address] to find one close to you.3.Make use of household items: Use cat litter or old coffee grounds to dispose medications if other options arenot available. Mix your drugs with these household products, seal them in an airtight container andthrow it into the garbage. Call [facility]: [phone] to be sure your drugs can be [...] that I should contact my d octor. Patient/Legal Summer Intern Signature: Date/Time: Relationship to Patient: Witness Name/Signature: Date/Time: [id number] Note A. Received in formalin, labeled with [...] less than 15% ofthe overall disc volume. Legal Summer Intern sections in 3 cassettes. Dictated by [facility] 08-09-2022 Note A. Received in [...] less than 15% ofthe overall disc volume. Legal Summer Intern sections in 3 cassettes. Dictated by [facility] 08-09-2022 Hospital Discharge instructions Patient [...] you. Follow these instructions at home: Take damj-civ-xrtzyum and prescription medicines only as told by [...] 03/19/2015 Document Revised: 08/22/2019 Document Reviewed: 05/06/2018 Emergency [employer]Works Patient Education 2020 [employer] 03/07/2022 07:46:22 Hemorrhage Hemorrhage hemorrhage is excessive [...] spinach, red meat, and legumes. Take any yars-olx-cryhixe and prescription medicines only as told by [...] 10/05/2004 Document Revised: 06/28/2018 Document Reviewed: 02/16/2017 Emergency [employer]Works Patient Education 2020 [employer]. 03/07/2022 07:46:19 7- Home Care Instructions After [...] decreases and the color of blood gets mobile home set up person. Bright red and increased flow may reoccur [...] tender for several weeks. Take prescription or bliz-gsq-wbiuzna medications for pain with your care givers [...] straining when trying to pass a stool. Anhu-amg-luqqqhl medications, stool softeners, can be used. Check [...] flu symptoms.) Follow Up Care 03/05/2022 09:44:05 With:TECHNOLOGY RESOURCE TEACHER, CLINIC Address: [address] [place] [address] (Mon-Fri from 8:30am - 5:00pm) [place] [address]- When:04/18/2022 Comments:Follow-up as needed With:[facility] food program; Address:Unknown When: Unknown [facility] 08-09-2022 Note Discharge Instructions Thank you for allowing [facility] to assist you with your healthcare needs. The following is importantdischarge information regarding your hospital visit. Your Care Team PHYSICIAN, NONE What to do next Follow Up Appointments Follow Up with TECHNOLOGY RESOURCE TEACHER, CLINIC When In 6 weeks 04/18/2022 EDT Why: Follow-up as needed Where: [address] [facility] [address] (Mon-Fri from 8:30am - 5:00pm) [place] [address]- Follow Up with [facility] food program; When Someone Will Contact [...] needed for constipation Pickup at [facility] #01086 New ibuprofen (ibuprofen 600 mg oral tablet) 1 tab(s) by mouth Every 6 hours as needed for for pain Take with food or milk. Pickup at [facility] #46734 New insulin glargine (Lantus 100 units/ mL10 ml vial solution) 22 unit(s) Subcutaneous (INT) Once a day (in the evening) Refills: 5 Patient needs 6 week supply of 22 units daily Pickup at [facility] #84059 Changed cyclobenzaprine (cyclobenzaprine 5 mg oral tablet) 1 tab(s) by mouth Three (3) times a day Duration: 7 Days Pickup at [facility] #97858 Unchanged famotidine (Pepcid 20 mg oral tablet) 1 tab(s) by mouth Once a day Unchanged multivitamin, (PNV Select) by mouth Once a day Pharmacy Information [facility] #32788: [address], [place] [phone] What How Much When Comments Stop Taking [...] you. Follow these instructions at home: Take sxrn-vpw-uhrnqzq and prescription medicines only as told by [...] 03/19/2015 Document Revised: 08/22/2019 Document Reviewed: 05/06/2018 ElseDrill Map Patient Education 2020 [employer] Hemorrhage hemorrhage is excessive blood loss [...] spinach, red meat, and legumes. Take any twzl-sno-lnlgbvw and prescription medicines only as told by [...] 10/05/2004 Document Revised: 06/28/2018 Document Reviewed: 02/16/2017 [employer] Patient Education 2020 [employer] Home Care Instructions After Delivery After [...] decreases and the color of blood gets mobile home set up person. Bright red and increased flow may reoccur [...] tender for several weeks. Take prescription or vqrb-tmy-yemsbcd medications for pain with your care givers [...] straining when trying to pass a stool. Vnut-aow-dsxmzlj medications, stool softeners, can be used. Check [...] to receive it can visit one of [facility] vaccine clinics. There are many vaccine clinic locations within the [facility]. For locations and available times, please visit [email or web address]. It is important to note that some COVID mobile vaccine clinics are held outdoors and may be canceled in rainy orstormy conditions. To learn more about pediatric vaccinations (ages 5-11), we invite you to visit the [facility] webpage. https://www.[email or web address].org/pages/7586-Kimnp-Hymluylrygs-Modwdukvvo-Eywtm-Fpb stions.htmlTo learn more about the COVID-19 vaccine, we invite you to visit the [facility] website for a list of frequently asked questions. [email or web address]/[email or web address]-[email or web address]/vxxsj-Wtzguwm-Fsfmxjfrub _Asked-Questions.pdf [facility] Patient Portal Access Instructions: Stay connected with your healthcare team and access your personal medical information anytime with the [facility] Patient Portal.If you would like a full copy of your medical records, please contact the [facility] Medical Records Department, Sunday through Sunday between 8a.m. and 4:30p.m. Please follow the directions below to access the portal: 1.Access the email account you provided upon registration to the [facility] hospital.2.Look for an invitation email from [facility].3.Open the email and access the invitation link: Accept Invitation to [facility]4.Fill in the required french to create your account. Sign into [email or web address] with your username and password that you [...] you will allow to register on the [facility] Patient Portal for access to your information. You can also access the [facility] Patient Portal on the Goojet lisette. Simply click on Health Records under onefortyta and then click on the [facility] logo. [...] Call your local pharmacy or go to http://bit.ly/3F7Jn7t to find one close to you.3.Make use of household items: Use cat litter or old coffee grounds to dispose medications if other options arenot available. Mix your drugs with these household products, seal them in an airtight container andthrow it into the garbage. Call [facility]: [phone] to be sure your drugs can be [...] that I should contact my d octor. Patient/Legal Summer Intern Signature: Date/Time: Relationship to Patient: Witness Name/Signature: Date/Time: [id number] Discharge summary Discharge Diagnosis: (_x) IUP (_) [...] given Rubella: (_x) Rubella immune (_) Rubella bpv-oseldi-Ymcyfek given (_) Rubella fqr-appsgs-Ikpkptc declined Feeding Rhodes: (_) Breast feeding (_x) [...] SANTO BOWER DO on 03/07/2022 07:36 AM [facility] [id number] Note A. Received in formalin, labeled with [...] less than 15% ofthe overall disc volume. Legal Summer Intern sections in 3 cassettes. Dictated by [facility] 08-08-2022 Nurse Progress note pt not in room at 10 for post parandial blood sugar check I advised pt not to go outside until we remove iv but she is not compliant Digitally Signed by Mar Conway RN on 2022 10:05 AM [facility] [id number] Note A. Received in formalin, labeled with [...] less than 15% ofthe overall disc volume. Legal Summer Intern sections in 3 cassettes. Dictated by [facility] 08-08-2022 Note A. Received in [...] less than 15% ofthe overall disc volume. Legal Summer Intern sections in 3 cassettes. Dictated by [facility] 08-08-2022 Note A. Received in [...] less than 15% ofthe overall disc volume. Legal Summer Intern sections in 3 cassettes. Dictated by [facility] 08-07-2022 Evaluation + Plan noteExtracted from: Title:Clinical Document Author:GISELLE BROWNE MD Date:03/05/22 [facility] AD[facility] H[facility]ORY AND PHYSICAL Chief complaint: [...] BS monitoring. PCN . Monitor per protocol. [facility] 08-07-2022 History and physical note [facility] AD[facility] H[facility] AND PHYSICAL Chief complaint: [...] GISELLE BROWNE MD on 03/05/2022 10:20 AM [facility] [id number] Anesthesiology Consult note Patient: BETSY MESA Age: 26 years Sex: Female : 1995 Associated Diagnoses: None Author: HAKAN STEWARD APRN-[employer] Preoperative Information Procedure/ Case: labor epidural Anesthesiologist [...] ADD (attention deficit disorder) / SNOMED CT [id number] / Confirmed Gestational diabetes mellitus, class A>1< / SNOMED CT 297539875 / Confirmed Induction of labor / SNOMED CT 533777108 / Confirmed / SNOMED CT 801220132 / Confirmed / SNOMED CT [id number] / Confirmed, Active Problems (8) ADD (attention deficit disorder) Gestational diabetes Gestational diabetes Gestational diabetes mellitus, class A>1< Induction of labor Tobacco use Histories Past Medical History: Active ADD (attention deficit disorder) ([id number]) Resolved ([id number]): Onset on 10/23/2018 at 23 years. Resolved on 08/04/2019 at 24 years. Comments: 02/27/2017 EDT 15:51 EDT - SYSTEM System added from documentation. Status documented as Yes on Admission ([id number]): Onset on 10/16/2016 at 21 years. Resolved in 2017 at 22 years. ([id number]): Onset on 10/20/2013 at 18 years. Resolved in 2014 at 19 years. ([id number]): Onset on 08/16/2013 at 18 years. Resolved on 05/29/2014 at 19 years. Family History: Diabetes mellitus type 1 Sister Diabetes mellitus type 2 Mother Seizure Sister Procedure history: None ([id number]). Social History Social & Psychosocial Habits Alcohol 01/17/2022 Use: Past Frequency: 1-2 times per month Substance Abuse 01/30/2018Risk Assessment: Denies Substance Abuse 05/19/2020 Use: Current Type: Marijuana Frequency: 1-2 times per year Tobacco 05/19/2020 Tobacco Use: 5-9 cigarettes (between 01/17/2022 Tobacco Use: Former smoker, quit more [...] Oral36.7 DegC (MAR 05 10:13) Heart Rate Qcmluodev25 bpm (MAR 05 10:30) Resp Rate 18 br/min (MAR 05 10:13) BMI34.51 (MAR 05 10:05) Measurements from flowsheet : Measurements 03/05/2022 10:05 EDT Height 177.8 cm Admission Weight 109.1 kg [place] Body Weight 68.50 kg BSA Admission 2.26 [...] EDT Designated Person #1 We May Share [facility] Cara Designated Person #1 Relationship Mother Privacy Restrictions Requested None Height 177.8 cm Admission Weight 109.1 kg [place] Body Weight 68.50 kg BSA Admission 2.26 [...] Surrogate No Tubal Sterilization Planned No Discharge [place] Physician darien Written Plan No WIC Participant [...] Teaching Evaluation Needs practice/supervision Preferred Written Language Tongan Preferred Spoken Language Tongan Chief Complaint labor Mode of Arrival Wheelchair Accompanied by Significant other, Sibling Information Given by Patient Patient's Current Physicians [facility] [place] Emergency Contact Number Emergency Contact Number Belongings [...] Documentation reviewed: Current records. Assessment and Plan [place] [employer] of Anesthesiologists (ASA) physical status classification: [...] by HAKAN STEWARD on 03/05/2022 10:51 AM [id number] History and physical note [facility] ADMISSION HISTORY AND PHYSICAL Chief complaint: [...] GISELLE BROWNE MD on 03/05/2022 10:20 AM [id number] History and physical note [facility] ADMISSION HISTORY AND PHYSICAL Chief complaint: [...] GISELLE BROWNE MD on 03/05/2022 10:20 AM [id number] Hospital Discharge instructions Patient Education 01/18/2022 06:55:38 7 - Labor and Delivery Outpatient Instructions(CUSTOM) [facility] LABOR AND DELIVERY OUTPATIENT HOME-GOING INSTRUCTIONS _X_ [...] crackers, bananas, Jell-O, cooked carrots, applesauce. ___ Amelia diet. Avoid caffeine, chocolate, alcohol, spiced/greasy foods. [...] the nearest Emergency Room for assistance. Form [id number] D: 07/07 Document Released: 07/16/2006 Document Revised: 07/04/2012 Document Reviewed: 07/16/2006 ExitCare Patient Information 2012 [employer]. Follow Up Care 01/17/2022 14:26:45 With:GATITO ODOM DO Address: [address] [place] [phone] When: Unknown Comments:Follow-up as scheduled [facility] 01-09-2022 Hospital Discharge instructions Patient Education [...] for support. Classes and counselors. Quit-smoking classes college coach people like you through the process. [...] your health. For more information National Cancer [place] Smoking Quitline, smokefree.gov/odrvq-pm-ud-expert, 872-40Q-OITQ ([phone] [employer]. [address] [place] [address]. All rights reserved. This information is not [...] cloves at drugstores. Some pharmacies carry an izdd-ewq-jotsbru toothache kit. This contains a paste that you can put on the exposed tooth to make it less sensitive. Put a cold pack on your jaw over the sore area to help reduce pain. You may use oifm-saq-vwhjpyc medicine to ease pain, unless another medicine [...] Pus drains from the tooth or gum [phone] [employer]. [address] [place] [address], [place] [address]. All rights reserved. This information is not intended as a substitute for professional medical care. Always follow yourhealthcare professional's instructions. Follow Up Care 08/07/2021 16:21:41 With:Dental Referral List Address:Unknown When:2-4 days [facility] 10-20-2021 Hospital Discharge instructions Patient Education [...] the smoke from others. You may use bgdd-hby-noqnijk acetaminophen or ibuprofen for fever, muscle aching, [...] body and be dangerous to your health. Wotx-qgs-yeoqlbh remedies won't shorten the length of the [...] or as directed by your healthcare provider [phone] [employer]. [address] [place] [address], [place] [address]. All rights reserved. This information is not intended as a substitute for professional medical care. Always follow yourhealthcare professional's instructions. Follow Up Care 05/18/2021 12:09:33 With:Call Physician Referral Address:Unknown When:2-4 days [facility] 08-17-2021 Hospital Discharge instructions* Instructions* Carlitos English, SENIOR TECHNICAL PROJECT MANAGER - MID LEVEL GAME DESIGNER - 03/15/2021 In the medical field, there [...] be sent through Care Everywhere. * Cough (Tongan) documented in this [facility] Work Phone: 1(358) 906-226308-09-2021 Taisha independently performed a history and physical on Weele. All diagnostic, treatment, and disposition decisions were [...] 0024 regular rhythm tachycardic rate 142 bpm. CA interval prolonged 220 milliseconds. QRS complex narrow. QTC normal. No ST segment elevations or depressions. No abnormal T-wave inversions. Good R-wave progression through precordial leads. Interpretation of this EKG myself in the absence of a research coordinator is first-degree AV block, sinus tachycardia. Interpretation [...] for Macrobid. For further details of Betsy Bonita's emergency department encounter, please see documentation by [...] provider for clarification. Isreal Kincaid MD 03/07/[address] [place], [place] [address]Discharge summary Author Nelson Ulloa [facility] Note Date/Time May 10, 2025 3 :55am [facility] Medical Records Department [address] [place] [address] Emergency Department Summary 05/10/25 MR#: [id number] Acct: [id number] Name: BESTY MESA Rep #:[id number] : 1995 30 From: Nelson Ulloa DO PCP: ARLINE CORADO Status:DEP ER Location: ED HPI HPI - Female History of Present Illness Chief Complaint: Vag Bld, Preg Informant: patient Narrative Narrative: Patient is a 30-year-old female who is a G7, P5 at approximately 6 weeks . She was seen on May 03 and May 06 secondary to lower abdominal cramping and vaginal bleeding. She had an ultrasound done on the and with documented a IUP but also noticed an abnormal fluid collection adjacent to the gestational sac. The patient states that this evening she once again noticed some abdominal lower cramping and then went to the bathroom and had blood from the vagina. She states that she does not have a history of bleeding disorder nor does she take blood thinners. 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 in roughly 24 hours but because of the return bleeding she was concerned and presents for evaluation [facility] Medical History Migraine Anxiety Paresthesias Cervical radiculopathy Cervicalgia Home Medications ?Medication ?Instructions ?Recorded ?Last Taken ?Type cephalexin 500 mg capsule 500 mg PO TID 5 days #15 cap s 05/03/25 Unknown Rx vitamins no.102-iron 90 1 cap PO DAILY #30 ca ps 05/06/25 Unknown Rx mg-folate 1 mg-dha 200 mg capsule Allergy/AdvReac Type Severity Reaction Status Date / Time acetaminophen (From Vicodin) Allergy Hives Verified 05/10/25 02:02 hydrocodone (From Vicodin) Allergy Hives Verified 05/10/25 02:02 Family History Other Cancer Diabetes Seizures Social History Smoking Status: Current every day smoker tobacco type: cigarettes Tobacco: How many years used: 6 second hand exposure: Yes alcohol intake: current alcohol intake frequency: holidays/special occasions only substance use type: former substance user Date of last use: used some marijuanain the past ROS ROS ED Constitutional Constitutional ED: Denies chills or fever(s) Eyes Eyes: Denies change in vision ENT ENT ED: Denies sore throat Cardiovascular Cardiovascular: Denies chest pain Respiratory/Chest Respiratory/Chest: Denies cough or dyspnea Gastrointestinal Gastrointestinal: Reports abdominal pain; Denies diarrhea, nausea or vomiting Genitourinary Genitourinary ED: Reports other Details: Positive vaginal bleeding Musculoskeletal Musculoskeletal: Denies myalgias Integumentary Denies rash Neurologic Neurologic: Denies headache(s) Hematologic/Lymphatic Hematologic/Lymphatic: Denies easy bleeding or easy bruising EXAM Physical Exam Const Vital Signs: 05/10/25 01:59 05/10/25 02:43 05/10/25 03:54 Temperature 98.5 F 97.1 F L Temperature Source Oral Pulse Rate 108 H 77 Respiratory Rate 18 16 Respiratory Effort Normal Non-Labored Respiratory Pattern Normal Blood Pressure 130/84 H 140/91 H Blood Pressure Mean 99 107 Pulse Ox 98 99 Oxygen Delivery Method Room Air Positive well nourished and well developed General Appearance ED: well developed; Negative for pallor HEENT HEENT Narrative: Normocephalic atraumatic Eyes PERRL and EOMs intact bilaterally General Eye ED: Negative for pale conjunctiva or scleral icterus Neck supple Resp normal respiratory effort and clear to auscultation bilaterally Cardio regular rate and regular rhythm GI normal to inspection, nondistended, normoactive bowel sounds, soft to palpation,non-tender, non-distended and no masses GI Narrative: No voluntary guarding or rigidity or pulsatile mass. No peritoneal signs. No organomegaly Auscultation: normoactive bowel sounds Palpation: soft Extremity normal to inspection and full ROM Neuro oriented x3, CN's II-XII intact bilaterally and no sensory deficits noted Sensorium / Orientation: alert Motor Exam: strength 5/5 throughout Psych mental status grossly normal Skin no rashes or lesions noted and no wounds General Skin Exam: Negative for jaundice or pallor MDM MDM MDM Narrative Medical decision making narrative: Patient presented complaining of abdominal cramping with passage of bright red blood per vagina. However she stated it was 1 episode and has not reoccurred orcontinued. Her previous chart was reviewed and the ultrasound report from May 03 and was reviewed indicating an IUP. As she is only 6 weeks along and there is a known IUP I do not feel the need to repeat another emergent ultrasound. At this time basic blood work be obtained to assess for acute bloodloss anemia. Her quantitative value will be measured as well to ensure it is increasing which would correlate with normal progression versus potential miscarriage. Chart review revealed that her blood type is O+ and therefore there is no need for RhoGAM. The patient was watched in the ER and she had no return of bleeding. Therefore at this time as her H&H is stable she does not require RhoGAM and her quantitative hCG value is increasing I do not feel the need for repeat ultrasound or emergent TECHNOLOGY RESOURCE TEACHER consultation and she is otherwise safe for discharge. History & Record Review Discussion w/independent historian: Patient Additional record(s) reviewed:: Prior ED visit and Prior labs Lab Data Attestation: I reviewed the patient's lab results. Labs: Laboratory Results - last 24 hr 05/10/25 02:42 WBC 7.4 RBC 3.90 L Hgb 11.4 L Hct 33.7 L MCV 86.4 MCH 29.2 MCHC 33.8 RDW Std Deviation 47.8 H RDW Coeff of Ghada 15.0 H Plt Count 171 MPV 10.8 Immature Gran % (Auto) 0.300 Neut % (Auto) 54.4 Lymph % (Auto) 37.3 Fergus % (Auto) 5.7 Eos % (Auto) 2.0 Baso % (Auto) 0.3 Absolute Neuts (auto) 4.0 Absolute Lymphs (auto) 2.75 Nucleated RBC % 0 HCG, Quant 49800 H Discharge Plan Triage Chief Complaint: Vag Bld, Preg ED Provider: Nelson Ulloa Dx/Rx/DC Orders Clinical Impression: Vaginal bleeding in , Anxiety, Abnormal collection of fluid in uterinecavity Instructions: Bleeding During Early Prescriptions: No Action cephalexin 500 mg capsule 500 mg PO TID 5 Days Qty: 15 0RF PNV 696-mbxc-spnjzr-dha 90 mg iron- 1 mg-200 mg capsule 1 cap PO DAILY Qty: 30 0RF Stand Alone Forms: ED Work / School Excuse Primary Care Provider: ARLINE CORADO Referrals: ARLINE CORADO [Other] Activity Restrictions/Additional Instructions: Please keep your appointment for tomorrow/Sunday, May 11 with your TECHNOLOGY RESOURCE TEACHER. Your blood volume has remained stable and your marker increased from 12,000-22,000-36,000 indicating a normal progression in . Return to the ER should you have any further concerns Print Language: Tongan Disposition Disposition: Home, Self Care Discharge Date/Time: 05/10/25 03:55 What to do if you have Problems For any increased pain, shortness of breath, bleeding, nausea or vomiting, chest pain, or any unexpected problems, contact your Primary Care Provider. Call [facility] ([phone]) or report to the closest Emergency Room. Call 911 if necessary. 05/10/25 0510 <Electronically signed by Nelson Ulloa DO> Cosigner Signature (if applicable): CC: ARLINE CORADO ~ Signed [facility] Work Phone: Evaluation + Plan note No data available for this section [facility] Evaluation + Plan note Future Appointments Appointment Date:05/26/2024 01:30:00 PM Scheduled Provider:ARLINE CORADO Location:[facility] Appointment Type:PC OV Follow Up [facility] Evaluation + Plan note Future Appointments Appointment Date:11/21/2024 03:30:00 PM Scheduled Provider:ARLINE CORADO Location:[facility] Appointment Type:PC OV Follow Up Future Scheduled Tests Laboratory* Thyroid Stimulating Hormone 04/25/24 * Free T4 04/25/24 * Free T3 04/25/24 Radiology* US Breast Left Complete 09/15/24 [facility] Evaluation note* Diagnosis 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, unspecified Acute cystitis with hematuria Acute cystitis documented in this [facility]: Evaluation note* Diagnosis Cough- Primary Vaginal discharge Leukorrhea, not specified as infective documented in this encounter [employer] Phone: Evaluation note* Diagnosis Hypertension, unspecified type- Primary documented in this encounter [facility] Work Phone: evaluation note* Diagnosis Numbness- Primary Disturbance of skin sensation [facility]* Diagnosis with uncertain viability, single or unspecified fetus- Primary with uncertain dates in first trimester documented [facility] this encounter [facility]* Diagnosis Positive test- Primary examination or test, positive result Threatened miscarriage Threatened , unspecified as to episode of care with uncertain dates in first trimester Spotting affecting in first trimester documented [facility] encounter [facility]* Diagnosis with uncertain dates in first trimester documented in this encounter [facility]* Diagnosis Incomplete - Primary Unspecified , without mention of complication, incomplete Threatened miscarriage Threatened , unspecified as to episode of care documented in this encounter [facility] noteNo assessment information availableWNationwide Children's Hospital Work Phone: Hospital Discharge instructions* Instructions* Isreal Kincaid MD - 03/07/2021 [facility] Long-term residential drug and alcohol rehabilitation services [address] [facility] [phone] [facility] crisis Center 24 hour detox and drop in. Central assessment 8 AM4 PM for adults. [address] [phone] [facility] App[facility] only for outpatient treatment services M, W, Th 9AM-9PM, T F 9AM-530PM [address] [facility] [phone] [facility] M-F 10AM-2PM [phone] or [phone] Alcoholics Anonymous [address] [facility] M-F 9AM-5 PM, Sa 9AM-1 PM [phone] [facility]/Inpatient/Detox for adults [address] [facility] [phone] Adolescents Treatment/Detox [facility] [phone] [facility] Alcohol and drug counseling and groups. [address] [place] [address] [facility] Drug, alcohol, gambling, and mental health treatment. M-F 8AM-4:30PM [address] [phone], ext [phone] Narcotics Anonymous 24 hour Hotline 6-718-DEP-HOPE or [facility] Sober living housing, counseling, vocational education, job referral, recovery coaching [address] [facility] [phone] [facility] Alcohol and Drug Counseling Call for treatment appointment and prevention [address] [facility]. [phone] * Attachments The following attachments cannot be sent through Care Everywhere. * UTI (Urinary Tract Infection): Female (Tongan) * Substance Use Disorder (Tongan) documented in this [facility] Work Phone: Hospital Discharge instructions No data available for this section [facility] Hospital Discharge instructionsNo known hospital discharge instructions.[facility] Hospital Discharge instructions* Additional Discharge Instructions Contac t [facility] Office for appointment to be seen. Instruction/Education Provided DI for Va ginal Bleeding [facility] Hospital Discharge instructions Additional Instructions Your labs and CAT scan were all good. Follow-up with your primary care physician.[facility] Work Phone: Hospital Discharge instructionsAdditional Instructions Your scan did not show any sign of skull fracture or brain bleed indicating the pain is from soft tissue contusion. You can ice the area to help reduce pain and swelling and also continue the prescribed ibuprofen. Return to the ER should you have any further concerns [facility] Work Phone: Hospital Discharge instructionsAdditional Instructions Follow-up with your TECHNOLOGY RESOURCE TEACHER at [place]. Follow-up with your primary care physician. Return back to ED if symptoms change or worsen. You had bacteria in her urine and therefore we will treat with antibiotics to prevent urinary tract infection.[facility] Work Phone: Hospital Discharge instructionsAdditional Instructions vitamins as directed. Follow-up with your TECHNOLOGY RESOURCE TEACHER as scheduled. You will most likely need another ultrasound performed as on your last 2 ultrasound there was an abnormal fluid collection noted adjacent to the gestational sac. Return to the emergency department with increased vaginal bleeding or cramping, new or worsening symptoms.[facility] Work Phone: Hospital Discharge instructionsAdditional Instructions Please keep your appointment for tomorrow/Sunday, May 11 with your TECHNOLOGY RESOURCE TEACHER. Your blood volume has remained stable and your marker increased from 12,000-22,000-36,000 indicating a normal progression in . Return to the ER should you have any further concernsWNationwide Children's Hospital Work Phone: Progress note No data available for this section [facility] Reason for referral (narrative)* Diagnostic Procedure Only (Routine) - Authorized Specialty Diagnoses / Procedures Referred By Contac t Referred To Contact [facility] Diagnoses with uncertain dates in first trimester Procedures PELVIC US WHI US PELVIC NONOBSTETRIC REAL-TIME IMAGE COMPLETE Sushil Villanueva APRN.CNP [address] [place] [address] [facility] [place] [employer] [place] [address] Referral ID Status Reason Start Date Expiration Date Visits Requested Visits Authorized [id number] Authorized Auto-Generat ed Referral 04/28/2024 04/28/2025 1 1 [facility] for [facility] (narrative)No reason for referral information availableMer[facility] Work Phone: Reason for visit Narrative* Diagnostic Procedure Only (Routine) - Closed Specialty Diagnoses / Procedures Referred By Contac t Referred To Contact [facility] Diagnoses with uncertain dates in first trimester Procedures PELVIC US I US PELVIC NONOBSTETRIC REAL-TIME IMAGE COMPLETE Sushil Villanueva APRN.CNP [address] 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 No January 11, 2025 10:21pm Advance Directive Response Recorded Date/ Time Do you have a Healthcare Power of Communication Instructor? No January 11, 2025 10:21pm Do you have a Healthcare Power of Communication Instructor? No February 05, 2025 1:16am Advance Directive Response Recorded Date/ Time Do you have a Healthcare Power of Communication Instructor? No January 11, 2025 10:21pm Do you have a Healthcare Power of Communication Instructor? No February 05, 2025 1:16am Do you have a Healthcare Power of Communication Instructor? No March 22, 2025 11:27pm Advance Directive Response Recorded Date/ Time Do you have a Healthcare Power of Communication Instructor? No January 11, 2025 10:21pm Do you have a Healthcare Power of Communication Instructor? No February 05, 2025 1:16am Do you have a Healthcare Power of Communication Instructor? No March 22, 2025 11:27pm Do you have a Healthcare Power of Communication Instructor? No May 03, 2025 7:53pm Advance Directive Response Recorded Date/ Time Do you have a Healthcare Power of Communication Instructor? No January 11, 2025 10:21pm Do you have a Healthcare Power of Communication Instructor? No February 05, 2025 1:16am Do you have a Healthcare Power of Communication Instructor? No March 22, 2025 11:27pm Do you have a Healthcare Power of Communication Instructor? No May 03, 2025 7:53pm Do you have a Healthcare Power of Communication Instructor? No May 06, 2025 6:31pm Advance Directive Response Recorded Date/ Time Do you have a Healthcare Power of Communication Instructor? No February 05, 2025 1:16am Do you have a Healthcare Power of Communication Instructor? No March 22, 2025 11:27pm Do you have a Healthcare Power of Communication Instructor? No May 03, 2025 7:53pm Do you have a Healthcare Power of Communication Instructor? No May 06, 2025 6:31pm Do you have a Healthcare Power of Communication Instructor? No May 10, 2025 2:02am Chief Complaint and Reason for Visit Chief Complaint Admit Date NUMBNESS, C/O January 11, 2025 9:47 pm Chief Complaint Admit Date NUMBNESS, C/O January 11, 2025 9:47 pm head injury February 05, 2025 1:12 am Chief Complaint Admit Date NUMBNESS, C/O January 11, 2025 9:47 pm head injury February 05, 2025 1:12 am general March 22, 2025 11 :21pm Chief Complaint Admit Date NUMBNESS, C/O January 11, 2025 9:47 pm head injury February 05, 2025 1:12 am general March 22, 2025 11 :21pm May 03, 2025 7: 29pm Chief Complaint Admit Date NUMBNESS, C/O January 11, 2025 9:47 pm head injury February 05, 2025 1:12 am general March 22, 2025 11 :21pm May 03, 2025 7: 29pm VAG BLEED May 06, 2025 5: 59pm Chief Complaint Admit Date head injury February 05, 2025 1:12 am general March 22, 2025 11 :21pm May 03, 2025 7: 29pm VAG BLEED May 06, 2025 5: 59pm VAG BLEED May 10, 2025 1 :59am Additional Source Comments INFORMATION SOURCE (unrecogn ized section and content) DATE CREATED AUTHOR 01/22/2018 [facility] DATE CREATED AUTHOR AUTHOR'S ORGANIZ ATION 05/05/2019 [facility] DATE CREATED AUTHOR AUTHOR'S ORGANIZ ATION 04/09/2021 [facility] DATE CREATED AUTHOR AUTHOR'S ORGANIZ ATION 12/07/2021 [facility] DATE CREATED AUTHOR AUTHOR'S ORGANIZ ATION 01/04/2022 [facility] [place] DATE CREATED AUTHOR AUTHOR'S ORGANIZ ATION 10/10/2022 [facility] DATE CREATED AUTHOR AUTHOR'S ORGANIZ ATION 10/18/2023 [facility] DATE CREATED AUTHOR AUTHOR'S ORGANIZ ATION 12/12/2023 [facility] DATE CREATED AUTHOR AUTHOR'S ORGANIZ ATION 03/22/2024 [facility] ([place] DATE CREATED AUTHOR AUTHOR'S ORGANIZ ATION 05/11/2024 [facility] DATE CREATED AUTHOR AUTHOR'S ORGANIZ ATION 06/01/2024 [facility] DATE CREATED AUTHOR AUTHOR'S ORGANIZ ATION 03/11/2025 [facility] DATE CREATED AUTHOR AUTHOR'S ORGANIZ ATION 03/17/2025 [facility] DATE CREATED AUTHOR AUTHOR'S ORGANIZ ATION 03/30/2025 [facility] DATE CREATED AUTHOR AUTHOR'S ORGANIZ ATION 05/20/2025 [facility] DATE CREATED AUTHOR AUTHOR'S ORGANIZ ATION 06/11/2025 [facility] Reason for Visit (unrecogniz ed section [...] mL/hr, Administer over 0.5 Hours, ONCE, On 03/07/21 at 0100, For 1 dose 0110 (New [...] - Provid er: Erica Avila - Comment: [id number] XP 04/23) Source Comments (unrecognize d section and content) In the event this informatio n is protected by the Federal Confidentiality of Alcohol and Drug Abuse Patient Records regulations: The Federal rules restrict any use of the information to criminally investigate or prosecute any alcohol or drug abuse patient.[facility] Center[facility] the event this information is protected by the Federal Confidentiality of Alcohol and Drug Abuse Patient Records regulations: The Federal rules restrict any use of the information to criminally investigate or prosecute any alcohol or drug abuse patient.[facility] Center[facility] the event this information is protected by the Federal Confidentiality of Alcohol and Drug Abuse Patient Records regulations: The Federal rules restrict any use of the information to criminally investigate or prosecute any alcohol or drug abuse patient.[facility] Center[facility] the event this information is protected by the Federal Confidentiality of Alcohol and Drug Abuse Patient Records regulations: The Federal rules restrict any use of the information to criminally investigate or prosecute any alcohol or drug abuse patient.[facility] Center[facility] the event this information is protected by the Federal Confidentiality of Alcohol and Drug Abuse Patient Records regulations: The Federal rules restrict any use of the information to criminally investigate or prosecute any alcohol or drug abuse patient.[facility] CenterIn the event this information is protected by the Federal Confidentiality of Alcohol and Drug Abuse Patient Records regulations: The Federal rules restrict any use of the information to criminally investigate or prosecute any alcohol or drug abuse patient.[facility] CenterIn the event this information is protected by the Federal Confidentiality of Alcohol and Drug Abuse Patient Records regulations: The Federal rules restrict any use of the information to criminally investigate or prosecute any alcohol or drug abuse patient.[facility] Care Team (unrecognized sect ion and content) Care Team Personnel Name: PHYSICIAN, NONE Position: AH Physician Member Role: Primary Care Physician Name: Jocelyn Ojeda RN Position: OB RN Member Role: RN Name: Chris Vidal RN Position: OB RN Member Role: RN Care Team Related Persons Name: DIANA COLON Address: [address] [place] [address] [place] Name: DIANA COLON Address: [address] [place] [address] Name: JANINE MESA-GENARO Address: [address] [place] [address] [place] Name: CARA BARCENAS Name: CARA BARCENAS Name: CARA BARCENAS Name: CARA BARCENAS Name: AMELIA LANDEROS Address: [address] Care Teams (unrecognized sec tion and content) Team Status: Active Member Role/Relationship Status Dates ARLINE CORADO Primary care physician Active Team Status: Inactive Member Role/Relationship Status Dates No Primary Care Physician Primary care physician Activ e Start: January 11, 2025 End: January 12, 2025 Dr. Oseas Aviles MD Attending physician Active Start: January 11, 2025 End: January 12, 2025 Dr. Oseas Aviles MD Emergency Departmen t Physician Active Start: January 11, 2025 End: January 12, 2025 Team Status: Inactive Member Role/Relationship Status Dates Dr. Nelson Ulloa DO Attending physician Active Start: February 05, 2025 End: February 05, 2025 Dr. Nelson Ulloa DO Emergency Department Physician A ctive Start: February 05, 2025 End: February 05, 2025 MICKIE YOUNG Primary care physician Active Start: February 05, 2025 End: February 05, 2025 Team Status: Inactive Member Role/Relationship Status Dates MICKIE YOUNG Primary care physician Active Start: March 22, 2025 End: March 23, 2025 Dr. Nelson Ulloa DO Attending physician Active Start: March 22, 2025 End: March 23, 2025 Dr. Nelson Ulloa DO Emergency Department Physician A ctive Start: March 22, 2025 End: March 23, 2025 Team Status: Inactive Member Role/Relationship Status Dates MICKIE YOUNG Primary care physician Active Start: May 03, 2025 End: May 03, 2025 Dr. Ludwig Aranda DO Emergency Department Physician Active Start: May 03, 2025 End: May 03, 2025 Team Status: Active Member Role/Relationship Status Dates [...] February 05, 2025 End: February 05, 2025 HANNAHOZZIE BABINE Primary Care Provider Active Start: February 05, [...] January 11, 2025 End: January 12, 2025 Assistant Front End Manager Relationship Specialty Start Date End Date Estrella León APRN PCP - General Adult Health 02/05/24 08/29/24 Care Team Personnel Name: ARLINE CORADO YANNICK[employer] DESIGNER Position: P4 [employer]izer Member Role: Primary Care Physician Address: Address: [address] [place] [address]- Care Team Related Persons Name: CARA BARCENAS Assistant Front End Manager Relationship Specialty Start Date End Date Estrella [...] BE BASED ON THE PRIMARY CLINICAL RECORDS. [facility] [employer] provides no warranty or guarantee of the accuracy or completeness of information in this document."
[2025-06-17] MEDS: Lidocaine 2% (20 ml mdv) 20 ML Vial INFILT (04:06)
--- NOTE | 2025-06-17 05:13 | EDS_ITS ---
HPI History of Present Illness Chief Complaint: Laceration Informant: patient Narrative Narrative: Patient is a 30-year-old female with history of anxiety. She states that 2 to 3 days ago she was placing her hand inside a glass cup in order to wash it when the glass broke and she sustained a laceration to her left fifth finger. She states she began bleeding but was able to wrap the wound up and it stopped. She denies any history of bleeding disorder or blood thinner use. She states that over the last 2 days the area is healing but when she bends her finger it cracks open and she is concerned that it will not heal unless it is closed and secondary to this she comes in for evaluation [facility] Medical History Migraine Anxiety Paresthesias Cervical radiculopathy Cervicalgia Home Medications ?Medication ?Instructions ?Recorded ?Last Taken ?Type cephalexin 500 mg capsule 500 mg PO TID 5 days #15 cap s 05/03/25 Unknown Rx vitamins no.102-iron 90 1 cap PO DAILY #30 ca ps 05/06/25 Unknown Rx mg-folate 1 mg-dha 200 mg capsule cephalexin 500 mg capsule 500 mg PO TID 7 days #21 cap s 06/17/25 Unknown Rx Allergy/AdvReac Type Severity Reaction Status Date / Time acetaminophen (From Vicodin) Allergy Hives Verified 06/17/25 03:22 hydrocodone (From Vicodin) Allergy Hives Verified 06/17/25 03:22 Family History Other Cancer Diabetes Seizures Social History Smoking Status: Current every day smoker tobacco type: cigarettes Tobacco: How many years used: 6 second hand exposure: Yes alcohol intake: current alcohol intake frequency: holidays/special occasions only substance use type: former substance user Date of last use: used some marijuana in the past ROS ROS ED Constitutional Constitutional ED: Denies chills or fever(s) Cardiovascular Cardiovascular: Denies chest pain Respiratory/Chest Respiratory/Chest: Denies cough or dyspnea Gastrointestinal Gastrointestinal: Denies abdominal pain, diarrhea, nausea or vomiting Musculoskeletal Musculoskeletal: Reports other Details: Positive left fifth finger pain Integumentary Reports other Details: Positive laceration left fifth finger Neurologic Neurologic: Denies headache(s) Psychiatric Psychiatric: Reports anxiety Hematologic/Lymphatic Hematologic/Lymphatic: Denies easy bleeding or easy bruising EXAM Physical Exam Const Vital Signs: 06/17/25 03:22 06/17/25 05:17 Temperature 98.9 F 98 F Temperature Source Oral Pulse Rate 98 88 Respiratory Rate 16 18 Blood Pressure 127/90 H 121/80 H Blood Pressure Mean 102 93 Pulse Ox 98 99 Oxygen Delivery Method Room Air Positive well nourished and well developed General Appearance ED: well developed HEENT HEENT Narrative: Normocephalic atraumatic Eyes PERRL and EOMs intact bilaterally General Eye ED: Negative for scleral icterus Neck supple Resp normal respiratory effort and clear to auscultation bilaterally Cardio regular rate and regular rhythm Extremity Extremity Narrative: Left upper extremity is neurovascularly intact. No sign of ligamentous or tendon injury. There is a subcutaneous layer deep jagged laceration along the lateral aspect of the left fifth finger crossing from the PIP joint to the m idportion of the middle phalanx. Wound is approximately 2 cm in size. No active bleeding. No obvious surrounding soft tissue changes such as erythema warmth streaking or discharge to suggest infection. Remainder of the exam is normal Neuro oriented x3, CN's II-XII intact bilaterally and no sensory deficits noted Sensorium / Orientation: alert Motor Exam: strength 5/5 throughout Psych mental status grossly normal Skin Skin Narrative: Laceration to the left fifth finger as documented above MDM MDM MDM Narrative Medical decision making narrative: Patient arrived to ER with stable vitals. She sustained a simple laceration to her left fifth finger. She does not have sign of ligamentous or tendon injury or bony injury or neurovascular injury so I feel no need for imaging or laboratory studies. I discussed the patient has been a few days since the initial injury and there is higher risk for infection with closure. Patient states she understands this but is concerned that it will not close unless it is sutured. Therefore I did elect to close the wound as documented below. There are no obvious signs of infection at this time but with concern for potential infection she will be prescribed prophylactic antibiotics. However at this time without signs of ligamentous or tendon injury or bony injury or neurovascular compromise there is no need further intervention now that the wound has been closed and she is otherwise safe for discharge. Patient's left fifth finger was cleaned with chlorhexidine. It was then anesthetized using 7 mL of 2% lidocaine without epinephrine in digital block fashion. Then four 4-0 Ethilon sutures were placed in simple interrupted fashion bringing the wound edges together well with good approximation. Patient tolerated the procedure well without complication History & Record Review Discussion w/independent historian: Patient Discharge Plan Triage Chief Complaint: Laceration ED Provider: Nelson Ulloa Dx/Rx/DC Orders Clinical Impression: Laceration of left little finger, Anxiety Instructions: ED Hand Laceration- All Closures Prescriptions: New cephalexin 500 mg capsule 500 mg PO TID 7 Days Qty: 21 0RF No Action cephalexin 500 mg capsule 500 mg PO TID 5 Days Qty: 15 0RF PNV 385-[id number] 90 mg iron- 1 mg-200 mg capsule 1 cap PO DAILY Qty: 30 0RF Activity Restrictions/Additional Instructions: Please return to the ER or follow-up with your family doctor in 7 to 10 days for suture removal. If you notice signs of infection such as increased redness swelling warmth or pain then begin taking the prescribed antibiotic Print Language: Romanian Disposition Disposition: Home, Self Care Discharge Date/Time: 06/17/25 05:30
[2025-06-17 05:17] VITALS: BP 121/80; PULSE 88; RESP 18; TEMP 36.6; O2SAT 99
== END 2025-06-17 05:30 | disposition home or self-care (01) ==
PROVIDERS: Emergency Provider Emergency Medicine; Visit Provider Emergency Medicine
DX: S61.217A Laceration without foreign body of left little finger without damage to nail, initial encounter (principal); F41.9 Anxiety disorder, unspecified; W25.XXXA Contact with sharp glass, initial encounter; Y93.G1 Activity, food preparation and clean up; F17.210 Nicotine dependence, cigarettes, uncomplicated
CPT/HCPCS: 12001; 99283

== ENCOUNTER 2025-06-17 22:41 | Emergency (ER) | payer MEDICAID, SELFPAY ==
[2025-06-17 22:41] VITALS: BP 138/96; PULSE 100; RESP 18; TEMP 36.6; O2SAT 99; BMI 34.2
--- OUTSIDE RECORDS SUMMARY | 2025-06-17 22:50 | XMS RPT_ITS | CCD ---
Author Organization [facility] Care Team Providers Care Night Assistant Name Role Phone Unavailable Primary Care Provider Unavailabl e PHYSICIAN, NONE Primary Care Physician Unavailab le NONE, NONE Consulting Unavailable NONE, NONE Primary Care Unavailable COOPER TERRY MD Attending Unavailable COOPER TERRY MD Admitting Unavailable Unavailable Primary Care Provider Unavailabl Alvin Arzate Emergency Provider Call, On Primary Care Provider UnavailCelso Ramachandran Primary Care Provider Unavailable Primary Care Provider UnavailMARCELO Gotti Attending Unavailable Jeremy Lim Emergency Provider Alex Avila Primary Care Provider Vern Henry Emergency Provider [phone] Ruben Jacob Primary Care Provider Juan Tidwell Emergency Provider Call, On Primary Care Unavailable Jeremy Lim Attending Unavailable Call, On Primary Care Unavailable Vern Henry Attending Unavailable Call, On Primary Care Unavailable Leandra Keller Attending Unavailable Call, On Primary Care Unavailable Juan Tidwell Attending Unavailable Pcp ENERGY PROFESSIONAL, No Primary Care Provider Unavailtaylor CORADO APRN-PROTECTION [employer]F [employer], ARLINE Suarez Primary Care Physicia n HIRA LANGLEY MD Attending Unavailable MICKIE LANIER-ARLINE GORDON Primary Care Unava ilable SURYA ENERGY PROFESSIONAL-PROTECTION [employer], ABDI Attending Unavaila ble JASBIR DO, MARCELO Waters Primary Care Unavailab matrha MAGALLANES MD, DR JOSÉ MIGUEL Waters Attending Unavailable JASBIR DOMARCELO Primary Care Unavailab le TARSHA PA-C, ERLINDA Fuller Attending Unavailabl e JASBIR DOMARCELO Primary Care Unavailab le JASBIR DO, MARCELO Waters Primary Care Unavailab le GALINDO ENERGY PROFESSIONAL-PROTECTION [employer], LIZETTE Attending Unavailtaylor LANGLEY MD, HIRA Carrington Attending Unavailable MICKIE ENERGY PROFESSIONAL-PROTECTION [employer], ARLINE M Primary Care Unava ilable MICKIE ENERGY PROFESSIONAL-PROTE[employer], ARLINE Suarez Attending Unava ilable MICKIE ENERGY PROFESSIONAL-[employer], ARLINE M Primary Care Unava ilable SURYA ENERGY PROFESSIONAL-PROTECTION [employer], ABDI Attending Unavaila ble JASBIR DO, MARCELO Waters Primary Care Unavailab martha WILLINGHAM PA-C, ERLINDA Fuller Attending Unavailabl e JASBIR DO, MARCELO Waters Primary Care Unavailab martha MAGALLANES MD, DR JOSÉ MIGUEL Waters Attending Unavailable JASBIR DOMARCELO Primary Care Unavailab martha MAGALLANES MD, DR JOSÉ MIGUEL Waters Attending Unavailable JASBIR DOMARCELO Primary Care Unavailab le SURYA ENERGY PROFESSIONAL-[employer]OTE[employer], ABDI Attending Unavaila ble JASBIR DOMARCELO Primary Care Unavailab martha MAGALLANES MD, DR JOSÉ MIGUEL Waters Attending Unavailable JASBIR DOMARCELO Primary Care Unavailab martha WILLINGHAM PA-C, ERLINDA Fuller Attending Unavailabl e JASBIR DO, MARCELO Waters Primary Care Unavailab le Pcp ENERGY PROFESSIONAL, No Primary Care Provider Unavailabl e HAURY, SUSHIL Referring Unavailable HAURY, SUSHIL Referring Unavailable HAURY, SUSHIL Attending Unavailable SELF Referring Unavailable HAURY, SUSHIL Referring Unavailable LEELA CURRIE Attending Unavailable HAURY, SUSHIL Referring Unavailable JOSE ARANDA Attending Unavailable HAURY, SUSHIL Referring Unavailable MICKIE ENERGY PROFESSIONAL-PROTECTION [employer], ARLINE M Primary Care Unava ilable CLEMENCIA ALONZO, DELL Attending Unavailable Care Physician, No Primary Primary Care Provider Unavailable Stefan ALONZO, Dr. Farooq Emergency Provider [phone] Dr. Oseas Aviles MD Attending Provider Dr. Nelson Ulloa DO Emergency Provider ARLINE CORADO Primary Care Provider ARLINE CORADO Primary Care Unavailabl e MICKIE ENERGY PROFESSIONAL-PROTECTION [employer], ARLINE M Primary Care Unava ilable MICHEAL LANIER, ROMINA, JOSE Waters Attending Unavailable Laila JOHN, Dr. Damon Attending Provider MICKIE ENERGY PROFESSIONAL-[employer]OTECTION [employer], ARLINE M Attending Unava ilable MICKIE ENERGY PROFESSIONAL-PROTE[employer], ARLINE M Primary Care Unava ilable PAMELA MEZA MD Attending Unavailable MICKIE ENERGY PROFESSIONAL-PROTECTION [employer], ARLINE Suarez Primary Care Unava ilable Care Physician, No Primary Primary Care Physicia n Mell Aviles MD, Dr. Farooq Attending Physician Stefan ALONZO, Dr. Farooq Emergency Department Physici an Laila JOHN, Dr. Damon Attending Physician Laila JOHN, Dr. Damon Emergency Department Physic shobha ARLINE CORADO Primary Care Physician Manoj JOHN, Dr. Munroe Emergency Departmen t Physician René Mohan MD Emergency Department Physician MICKIE ALRINE Primary Care Physician Nelson Ulloa Attending Unavailable [...] Attending Unavailable JOHN, DESTIN Primary Care Unavailable Ludwig Aranda Attending Unavailabl e FINTA, DESTIN Primary Care Unavailable René Mohan Attending Unavailable KAITLYNTA, DESTIN Primary Care Unavailable Manoj JOHN, Dr. Munroe Attending Physician René Mohan MD Attending Physician MARLENA LOWERY DO Attending Unavailable MICKIE ENERGY PROFESSIONAL-PROTECTION [employer], ARLINE M Primary Care Unava ilable MICKIE ENERGY PROFESSIONAL-PROTECTION [employer], ARLINE M Primary Care Unava ilable SAIGE ALONZO, CASEY King Attending Unavailable MICKIE ENERGY PROFESSIONAL-[facility], ARLINE Suarez Attending Unava ilable MICKIE ENERGY PROFESSIONAL-PROTECTION [employer], ARLINE M Primary Care Unava ilable MICKIE ENERGY PROFESSIONAL-PROTECTION [employer], ARLINE M Primary Care Unava ilable SAIGE ALONZO, CASEY King Consulting Mell MOULTON MD, CASEY King Attending Unavailable MICKIE ENERGY PROFESSIONAL-PROTECTION [employer], ARLINE Suarez Attending Unava ilable MICKIE ENERGY PROFESSIONAL-PROTECTION [employer], ARLINE M Primary Care Unava ilable MICKIE ENERGY PROFESSIONAL-PROTECTION [employer], ARLINE M Attending Unava ilable MICKIE ENERGY PROFESSIONAL-PROTECTION [employer], ARLINE M Primary Care Unava ilable LUCRETIA ALONZO, DR MARIANNA Wood Attending Unavailabl e MICKIE ENERGY PROFESSIONAL-PROTECTION [employer], ARLINE M Primary Care Unava ilable Allergies Allergy Classification Reported Allergen(s) Allergy Type Date of Onset Reaction(s) Facility (16 sources) Acetaminophen / HYDROcodone; Translations: [acetaminophen-hy drocodone] Drug Allergy 2 [facility] (19 sources) Acetaminophen; Translations: [ACETAMINOPHEN] Drug Allergy 1 [facility] (19 sources) HYDROcodone; Translations: [HYDROCODONE] Drug Allergy 1 [facility] (4 sources) Acetaminophen / HYDROcodone; Translations: [HYDROCODONE-ACET AMINOPHEN] Drug Allergy 2 [facility] (1 source) Acetaminophen Drug Allergy 4 [facility] (1 source) HYDROcodone Drug Allergy 4 [facility] (1 source) Acetaminophen Drug Allergy 5 [facility] (1 source) HYDROcodone Drug Allergy 5 [facility] Rep[facility] Medications Current Medications Medication [...] Repeat number: 1 Start: 05-18-2024 End: 06-16-2024 Fcedmpcbls-Fdjdxaazyavsx-Nbe f (Fioricet) 50-300-40 mg capsule Discontinued 1 [...] day(s), # 12 tab(s), 0 Refill(s), Pharmacy: [facility] #[id number], Post-op pain, 177.8, cm, 05/14/25 11:40:00 [...] glucometer, # 1 EA, 0 Refill(s), Pharmacy: [facility] #[id number], Type 2 diabetes mellitus, 177.8, cm, 02/19/24 15:03:00 EDT, Height, 93, kg, 02/05/24 15:51:00 EDT, Dosing Weight Start Date: 03/05/24 Status: Ordered Medication Dispense Status: Completed Quantity: 1.0 Unit: EA Total Allowed Fills: 1 Fills Dispensed: 0 Indications: Type 2 diabetes mellitus without complications; Start: 03-05-2024 Blood Glucose Test Machine See Instructions, 1 glucometer, # 1 EA, 0 Refill(s), Pharmacy: [facility] #[id number], Type 2 diabetes mellitus, 177.8, cm, 02/19/24 15:03:00 EDT, Height, 93, kg, 02/05/24 15:51:00 EDT, Dosing Weight Start Date: 03/05/24 Status: Ordered Quantity: 1.0 Unit: EA Repeat number: 1 Indications: Type 2 diabetes mellitus without complications; Start: 03-05-2024 Blood Glucose Test Machine See Instructions, 1 glucometer, # 1 EA, 0 Refill(s), Pharmacy: [facility] #[id number], Type 2 diabetes mellitus, 177.8, cm, 02/19/24 [...] Refill(s), 03/14/22 5:57:00 EDT, [facility]: [facility] #[id number], 177.8, cm, 03/05/22 10:05:00 EDT, Height Start [...] 12:00am April 03, 2024 6:17am Dexcom G7 [place] (4 sources) Start: 08-22-2024 Dexcom G7 Read er See Instructions, Use reader daily for blood sugar checks. Keep reader within 20 feet of the sensor and transmitter, # 1 EA, 0 Refill(s), [facility]: [facility] #[id number], Type 2 diabetes mellitus, 177.8, cm, 08/22/24 [...] 1 EA, 0 Refill(s), [facility]: [facility] #[id number], Type 2 diabetes mellitus, 177.8, cm, 08/22/24 [...] 1 EA, 0 Refill(s), [facility]: [facility] #[id number], Type 2 diabetes mellitus, 177.8, cm, 08/22/24 [...] 3 EA, 0 Refill(s), [facility]: [facility] #[id number], Type 2 diabetes mellitus, 177.8, cm, 08/22/24 [...] supply., # 3 EA, 0 Refill(s), Pharmacy: [facility] #[id number], Type 2 diabetes mellitus, 177.8, cm, 08/22/24 [...] supply., # 3 EA, 0 Refill(s), [facility] #[id number], Type 2 diabetes mellitus, 177.8, cm, 08/22/24 [...] CHECKS, # 3 EA, 0 Refill(s), Pharmacy: [facility] #[id number], 177.8, cm, 08/22/24 14:59:00 EST, Height, 102.3, [...] 3 EA, 0 Refill(s), [facility]: [facility] #[id number], 177.8, cm, 08/22/24 14:59:00 EST, Height, 102.3, kg, 08/22/24 14:59:00 EST, Dosing Weight Start Date: 12/23/24 Status: Ordered Quantity: 3.0 Unit: EA Repeat number: 1 docusate sodium 100 mg oral capsule (1 source) Start: 03-07-2022 Colace 100 mg oral capsule Dose : 100 mg = 1 cap(s), Oral, BID, PRN as needed for constipation, # 20 cap(s), 0 Refill(s), [facility]acy: [facility] #[id number], 177.8, cm, 03/05/22 10:05:00 EDT, Height Start [...] 0 Refill(s), 05/21/25 11:42:00 AM EDT, Pharmacy: [facility] #[id number], 177.8, cm, 05/14/25 11:40:00 EDT, Height, [...] 40 tab(s), 0 Refill(s), [facility]: [facility] #[id number], 177.8, cm, 03/05/22 10:05:00 EDT, Height Start [...] # 15 mL, 5 Refill(s), Pharmacy: [facility] #[id number], 177.8, cm, 03/05/22 10:05:00 EDT, Height Start Date: 03/07/22 Status: Ordered Iron (2 sources) Start: 05-06-2025 take 1 capsule by mouth once daily Pnv 520-Adkf-Onjxuv-Dha 90 mg iron- 1 mg-200 mg capsule [...] Drug Class(es) Dates Sig (Normalized) Sig (Original) [id number] 200 actuat albuterol 0.09 mg/actuat metered dose [...] # 60 tab(s), 3 Refill(s), Pharmacy: [facility] #[id number], 177.8, cm, 08/22/24 14:59:00 EST, Height, kg, [...] [Zofran Odt] 4 MG PO EVERY SIX [id number] PRN 20 May 12, 2023 May 17, 2023 Discontinued Vvzwxyyr-Bx-Zgf-Fe-FA ( VITAMIN) tab (2 sources) Start: 02-03-2019 take 1 tablet by mouth once daily Dozhmkfm-St-Ruo-Fe -FA ( VITAMIN) tab Take 1 tablet by mouth once daily. 30 tablet 11 02/03/2019 Suspended Start: 02-03-2019 take 1 tablet by [place]ston th once daily Bhqrfmma-Vt-Kkc-Fe-FA ( VITAMIN) tab Take 1 tablet by [...] Reference Range Facility Final Surgical Pathology Rep [facility] 05-18-2025 Final Surgical Pathology Report . Pathology Reports Accession: Collected Date/Time: Received Date/Time: Pathologist: [id number] 05/14/2025 11:59 EDT 05/15/2025 07:15 EDT TAO TOBIAS MD Final Surgical Pathology Report DIAGNOSIS: PRODUCTS OF CONCEPTION: - FRAGMENTS OF HYPERSECRETORY ENDOMETRIUM, DECIDUALIZED TISSUE, CHORIONIC VILLI, AND BLOOD CLOT (PRODUCTS OF CONCEPTION) IDENTIFIED CLINICAL INFORMATION: Procedure: SUCTION DILATION AND CURETTAGE Preoperative diagnosis: MISSED Postoperative diagnosis: MISSED SPECIMEN: A PRODUCTS OF CONCEPTION GROSS DESCRIPTION: All parts labelled with patient name and [id number] Received in formalin labelled products of conception Specimen is received in a tissue collection bag and consists of multiple benavidez-brown hemorrhagic tissue fragments aggregating to 6 x 5.5 x 2 cm. No vesicles or parts are identified. RS-3 Bne Hines, Pathologists' Drafting Teacher (ASCP) Performed by [facility] MICROSCOPIC DESCRIPTION: The microscopic examination is performed, except in the case of Gross Only. Verified by Pathology Report verified by [facility] TAO TOBIAS Sign out Date: 05/18/2025 14:37 Performing Lab: [facility], [address] [place] [address] Pathology Dept Disclaimer If ancillary studies were utilized, the following Laboratory Developed Test (LDT) disclaimer will apply: Under CLIA requirements, [facility] is qualified to perform high complexity testing. For all ancillary, histochemical, in situ hybridization and immunostains, the controls are reviewed by the case pathologist, prior to and/or concurrent with the patients results to ensure appropriate staining the meets the performance specifications considered acceptable for patient testing. Performance characteristics of immunohistochemical and chromogenic in situ hybridization tests have been determined by [facility]. These tests are used for clinical purposes, they should not be regarded as investigational or for research. Normal [facility] .Auto Diffon 05-14-2025 Basophil, Absolute 0.0 10 3/mcL Normal 0.0-0.3 [facility] Comment on above: Performed By: #### C BC, ANEU, ABOGEL, ABSGEL, ADIFF #### [id number] [place], [place] [address] Basophils/100 WBC (Bld) 0.6 % Normal 0.0-2.5 [facility] Comment on above: Performed By: #### C BC, ANEU, ABOGEL, ABSGEL, ADIFF #### [facility] [address] [place], [place] [address] Eosinophil, Absolute 0.2 10 3/mcL Normal 0.0-0.7 [facility] Comment on above: Performed By: #### C BC, ANEU, ABOGEL, ABSGEL, ADIFF #### [address] [address] Eosinophils/100 WBC (Bld) 2.8 % Normal 0.0-6.0 [facility] Comment on above: Performed By: #### C BC, ANEU, ABOGEL, ABSGEL, ADIFF #### [address] [address] Lymphocyte, Absolute 2.4 10 3/mcL Normal 0.9-4.3 [facility] Comment on above: Performed By: #### C BC, ANEU, ABOGEL, ABSGEL, ADIFF #### [address] [address] Lymphocytes/100 WBC (Bld) 31.6 % Normal 20.0-40.0 [facility] Comment on above: Performed By: #### C BC, ANEU, ABOGEL, ABSGEL, ADIFF #### [address] [address] Monocyte, Absolute 0.5 10 3/mcL Normal 0.1-1.4 [facility] Comment on above: Performed By: #### C BC, ANEU, ABOGEL, ABSGEL, ADIFF #### [address] [address] Monocytes/100 WBC (Bld) 6.2 % Normal 2.0-13.0 [facility] Comment on above: Performed By: #### C BC, ANEU, ABOGEL, ABSGEL, ADIFF #### [address] [address] Neutrophils/100 WBC (Bld) 58.8 % Normal 50.0-75.0 [facility] Comment on above: Performed By: #### C BC, ANEU, ABOGEL, ABSGEL, ADIFF #### [address] [address] .NEUABSon 05-14-2025 Neutrophil, Absolute 4.4 10 3/mcL Normal 2.3-8.1 [facility] Comment on above: Performed By: #### C BC, ANEU, ABOGEL, ABSGEL, ADIFF #### [address] [address] ABO/Rh (Gel)on 05-14-2025 ABO/Rh Interp Positive Invalid Interpretation Code [facility] Comment on above: Performed By: #### C BC, ANEU, ABOGEL, ABSGEL, ADIFF #### [address] [address] ABS (Gel)on 05-14-2025 ABSC Interp (Gel) Negative Normal [facility] Comment on above: Performed By: #### C BC, ANEU, ABOGEL, ABSGEL, ADIFF #### [address] [address] CBCon 05-14-2025 Erythrocyte distribution width (RBC) [Ratio] 16.0 % High 11.5-15.5 [facility] Comment on above: Performed By: #### C BC, ANEU, ABOGEL, ABSGEL, ADIFF #### [place] [address] Hematocrit (Bld) [Volume fraction] 32.9 % Low 34.0-46.0 [facility] Comment on above: Performed By: #### C BC, ANEU, ABOGEL, ABSGEL, ADIFF #### [address] [address] Hgb 11.2 G/dL Low 12.0-16.0 [facility] Comment on above: Performed By: #### C BC, ANEU, ABOGEL, ABSGEL, ADIFF #### [address] [address] MCH (RBC) [Entitic mass] 29.6 pg Normal 27.0-33.0 [facility] Comment on above: Performed By: #### C BC, ANEU, ABOGEL, ABSGEL, ADIFF #### [address] [address] MCHC 33.9 G/dL Normal 32.0-36.0 [facility] Comment on above: Performed By: #### C BC, ANEU, ABOGEL, ABSGEL, ADIFF #### [address] [address] MCV (RBC) [Entitic vol] 87.2 fL Normal 80.0-99.0 [facility] Comment on above: Performed By: #### C BC, ANEU, ABOGEL, ABSGEL, ADIFF #### [place] [address] Platelet 153 10 3/mcL Normal 150-450 [facility] Comment on above: Performed By: #### C BC, ANEU, ABOGEL, ABSGEL, ADIFF #### [place] [address] Platelet mean volume (Bld) [Entitic vol] 8.9 fL Normal 6.6-10.5 [facility] Comment on above: Performed By: #### C BC, ANEU, ABOGEL, ABSGEL, ADIFF #### [place] [address] RBC 3.77 10 6/mcL Low 4.10-5.30 [facility] Comment on above: Performed By: #### C BC, ANEU, ABOGEL, ABSGEL, ADIFF #### [place] [address] WBC 7.5 10 3/mcL Normal 4.5-10.8 [facility] Comment on above: Performed By: #### C BC, ANEU, ABOGEL, ABSGEL, ADIFF #### [place] [address] LABORATORYOrdered By: Whitney Chand on 05-14-2025 ABO and Rh group Nom (Bld) Blood group O Rh(D) positive Invalid Interpretation Code AO BB Auto SS Blood group antibody screen Ql Negative ABSC (05/14/25 11:24 AM) Normal AO BB Auto SS LABORATORYOrdered By: N[employer] SYSTEM on 10-16-2025 Basophils (Bld) [#/Vol] 0.0 [...] HCGQon 05-13-2025 hCG, quantitative 1796.1 mIU/mL Normal [facility] Comment on above: Result Comment: HCG [...] mIU/mL Performed By: #### H CGQ #### [address] [address] HCGQon 05-11-2025 hCG, quantitative 6989.5 mIU/mL Normal [facility] Comment on above: Result Comment: HCG [...] Performed By: #### H CGQ #### [address] [place], [place] [address] Absolute lymphocyte countOrd ered By: Nelson Ulloa on 05-10-2025 Lymphocytes Auto (Unsp spec) [#/Vol] 2.75 10*3/uL 0.83-4.51 [facility] Absolute neutrophil countOrd ered By: Nelson Ulloa on 05-10-2025 Neutrophils (Bld) [#/Vol] 4.0 10*3/uL 2.0-7.7 [facility] Automated lymphocyte count a s percentage of total leukocytesOrdered By: Nelson Ulloa on 05-10-2025 Lymphocytes/100 WBC Auto (Unsp spec) 37.3 % 19-41 [facility] Basophil percentageOrdered B y: Nelson Ulloa on 05-10-2025 Basophils/100 WBC (Bld) 0.3 % 0-1 [facility] CBC W/Diff, Automatedon 04-29 Absolute Lymph 2.75 X10 3/uL Normal 0.83-4.51 [facility] Comment on above: Performed By: #### L 100.0100, L700.8000 #### [facility] Laboratory [address] [place], [address] Absolute Neut 4.0 X10 3/uL Normal 2.0-7.7 [facility] Comment on above: Performed By: #### L 100.0100, L700.8000 #### [facility] [address] [place], [address] Basophils/100 WBC (Bld) 0.3 % Normal 0-1 [facility] Comment on above: Performed By: #### L 100.0100, L700.8000 #### [facility] [address] [place], [address] Eosinophils/100 WBC (Bld) 2.0 % Normal 0-5 [facility] Comment on above: Performed By: #### L 100.0100, L700.8000 #### [facility] [address] [place], [address] Erythrocyte distribution width (RBC) [Ratio] 15.0 % High 11.6-14.6 [facility] Comment on above: Performed By: #### L 100.0100, L700.8000 #### [facility] [address] [place], [address] Hematocrit (Bld) [Volume fraction] 33.7 % Low 37-47 [facility] Comment on above: Performed By: #### L 100.0100, L700.8000 #### [facility] [address] [place], [address] Hemoglobin (Bld) [Mass/Vol] 11.4 g/dL Low 12.0-15.0 [facility] Comment on above: Performed By: #### L 100.0100, L700.8000 #### [facility] [address] [place], [address] IG% 0.300 Normal 0.0-0.9 [facility] Comment on above: Result Comment: IG% - Immature Granulocytes (promyelocytes, myelocytes and metamyelocytes) > 1% indicates that a LEFT SHIFT is Present. Performed By: #### L 100.0100, L700.8000 #### [facility] [address] [place], [address] Lymphocytes/100 WBC (Bld) 37.3 % Normal 19-41 [facility] Comment on above: Performed By: #### L 100.0100, L700.8000 #### [facility] [address] [place], [address] MCH (RBC) [Entitic mass] 29.2 pg Normal 27.0-32.0 [facility] Comment on above: Performed By: #### L 100.0100, L700.8000 #### [facility] [address] [place], [address] MCHC (RBC) [Mass/Vol] 33.8 g/dL Normal 32-36 [facility] Comment on above: Performed By: #### L 100.0100, L700.8000 #### [facility] [address] [place], [address] MCV (RBC) [Entitic vol] 86.4 fL Normal 81-99 [facility] Comment on above: Performed By: #### L 100.0100, L700.8000 #### [facility] [address] [place], [address] Monocytes/100 WBC (Bld) 5.7 % Normal 0-10 [facility] Comment on above: Performed By: #### L 100.0100, L700.8000 #### [facility] [address] [place], [address] Neutrophils/100 WBC (Bld) 54.4 % Normal 47-70 [facility] Comment on above: Performed By: #### L 100.0100, L700.8000 #### [facility] [address] [place], [address] Nucleated RBC (Bld) [#/Vol] 0 10*3/uL Normal 0-5 [facility] Comment on above: Performed By: #### L 100.0100, L700.8000 #### [facility] [address] [place], [address] Platelet mean volume (Bld) [Entitic vol] 10.8 fL Normal 6.2-12.0 [facility] Comment on above: Performed By: #### L 100.0100, L700.8000 #### [facility] [address] [place], [address] Platelets (Bld) [#/Vol] 171 10*3/uL Normal 150-450 [facility] Comment on above: Performed By: #### L 100.0100, L700.8000 #### [facility] [address] [place], [address] RBC (Bld) [#/Vol] 3.90 10*6/uL Low 4.2-5.4 [facility] Comment on above: Performed By: #### L 100.0100, L700.8000 #### [facility] [address] [place], [address] RDW SD 47.8 fl High 35.1-43.9 [facility] Comment on above: Performed By: #### L 100.0100, L700.8000 #### [facility] [address] [place], [address] WBC (Bld) [#/Vol] 7.4 10*3/uL Normal 4.4-11.0 [facility] Comment on above: Performed By: #### L 100.0100, L700.8000 #### [facility] [address] [place], [address] Emergency Department Summary on 05-10-2025 Emergency Department Summary [facility] Medical Records Department [address] [place] [address] Emergency Department Summary 05/10/25 MR#: [id number] Acct: [id number] Name: BETSY MESA Rep #: [id number] : 1995 30 From: Nelson Ulloa DO [...] she also has an appointment with her TIEDOWN OPERATOR in roughly 24 hours but because of the return bleeding she was concerned and presents for evaluation [facility] Medical History Migraine Anxiety Paresthesias [...] emergent ultrasound. (more content not included)... Normal [facility] Eosinophil percentageOrdered By: Nelson Ulloa on 05-10-2025 Eosinophils/100 WBC (Bld) 2.0 % 0-5 [facility] Erythrocyte distribution wid th ratioOrdered By: Nelson Ulloa on 05-10-2025 Erythrocyte distribution width (RBC) [Ratio] 15.0 % High 11.6-14.6 [facility] Erythrocyte distribution wid th standard deviationOrdered By: Nelson Ulloa on 05-10-2025 Erythrocyte distribution width (RBC) [Ratio] 47.8 fl High 35.1-43.9 [facility] Hematocrit Auto (Bld) [Volum e fraction]Ordered By: Nelson Ulloa on 05-10-2025 Hematocrit (Bld) [Volume fraction] 33.7 % Low 37-47 [facility] Hemoglobin measurementOrdere d By: Nelson Ulloa on 05-10-2025 Hemoglobin (Bld) [Mass/Vol] 11.4 g/dL Low 12.0-15.0 [facility] Immature granulocytes/100 WB C Auto (Bld)Ordered By: Nelson Ulloa on 05-10-2025 Immature granulocytes/100 WBC (Bld) 0.300 % 0.0-0.9 [facility] Comment on above: IG% - Immature Granu locytes (promyelocytes, myelocytes and metamyelocytes) > 1% indicates that a LEFT SHIFT is Present. MCV (mean corpuscular volume ) determinationOrdered By: Nelson Ulloa on 05-10-2025 MCV (RBC) [Entitic vol] 86.4 fL 81-99 [facility] Mean corpuscular hemoglobin (MCH) determinationOrdered By: Nelson Ulloa on 05-10-2025 MCH (RBC) [Entitic mass] 29.2 pg 27.0-32.0 [facility] Mean corpuscular hemoglobin concentration (MCHC) determinationOrdered By: Nelson Ulloa on 05-10-2025 MCHC (RBC) [Mass/Vol] 33.8 g/dL 32-36 [facility] Mean platelet volume determi nationOrdered By: Nelson Ulloa on 05-10-2025 Platelet mean volume (Bld) [Entitic vol] 10.8 fL 6.2-12.0 [facility] Monocyte percentageOrdered B y: Nelson Ulloa on 05-10-2025 Monocytes/100 WBC (Bld) 5.7 % 0-10 [facility] Neutrophil percentageOrdered By: Nelson Ulloa on 05-10-2025 Neutrophils/100 WBC (Bld) 54.4 % 47-70 [facility] Nucleated red blood cell per centageOrdered By: Nelson Ulloa on 05-10-2025 Nucleated RBC/100 WBC (Bld) [Ratio] 0 % 0-5 [facility] Platelet countOrdered By: Maranda Ulloa on 05-10-2025 Platelets (Bld) [#/Vol] 171 10*3/uL 150-450 [facility] RBC Auto (Bld) [#/Vol]Ordere d By: Nelson Ulloa on 05-10-2025 RBC (Bld) [#/Vol] 3.90 10*6/uL Low 4.2-5.4 [facility] Serum human chorionic gonado tropin detection for pregnancyOrdered By: Nelson Ulloa on 05-10-2025 HCG ( [place] [address] mIU/mL High <9 [facility] Comment on above: Gestational Age0.2-1 Week: 5-50 mIU/mL1-2 Weeks: 50-500 mIU/mL2-3 Weeks: 100-5000 mIU/mL3-4 Weeks: 500-10,000 mIU/mL4-5 Weeks:1000-50,000 mIU/mL5-6 Weeks: 10,000-100,000 mIU/mL6-8 Weeks: 15,000-200,000 mIU/mL2-3 Months:10,000-100,000 mIU/mL White blood cell (WBC) count Ordered By: Nelson Ulloa on 05-10-2025 WBC (Bld) [#/Vol] 7.4 10*3/uL 4.4-11.0 [facility] hCG Titer Quant., Serumon HCG QUANT. 15880 mIU/mL High <9 non-preg [facility] Comment on above: Result Comment: Gest ational Age 0.2-1 Week: 5-50 mIU/mL 1-2 Weeks: 50-500 mIU/mL 2-3 Weeks: 100-5000 mIU/mL 3-4 Weeks: 500-10,000 mIU/mL 4-5 Weeks:1000-50,000 mIU/mL 5-6 Weeks: 10,000-100,000 mIU/mL 6-8 Weeks: 15,000-200,000 mIU/mL 2-3 Months:10,000-100,000 mIU/mL Performed By: #### L 100.0100, L700.8000 #### [facility] Laboratory [address] [place], [place], [id number] Absolute lymphocyte countOrd ered By: René Mohan on 05-06-2025 Lymphocytes Auto (Unsp spec) [#/Vol] 2.43 10*3/uL 0.83-4.51 [facility] Absolute neutrophil countOrd ered By: René Mohan on 05-06-2025 Neutrophils (Bld) [#/Vol] 4.5 10*3/uL 2.0-7.7 [facility] Anion gap in Serum or Plasma Ordered By: René Mohan on 05-06-2025 Anion gap [Moles/Vol] 9 mmol/L 5-15 [facility] Automated lymphocyte count a s percentage of total leukocytesOrdered By: René Mohan on 05-06-2025 Lymphocytes/100 WBC Auto (Unsp spec) 31.8 % 19-41 [facility] [id number] 05-06-2025 ABO and Rh group Nom (Bld) Blood group O Rh(D) positive Normal [facility] Comment on above: Performed By: #### B 882-1, L700.8000, L500.4050, L100.0100 ####[facility] [address] [place], [place], [id number] BUN/creatinine ratioOrdered By: René Mohan on 05-06-2025 Urea nitrogen/Creatinine [Mass ratio] 13.3 mg/mg 10-20 [facility] Basophil percentageOrdered B y: René Mohan on 05-06-2025 Basophils/100 WBC (Bld) 0.3 % 0-1 [facility] Bilirubin Test strip Ql (U)O rdered By: René Mohan on 05-06-2025 Bilirubin Ql (U) Negative Negative [facility] Bilirubin, totalOrdered By: René Mohan on 05-06-2025 Bilirubin [Mass/Vol] 0.19 mg/dL 0.00-1.30 [facility] CBC W/Diff, Automatedon Absolute Lymph 2.43 X10 3/uL Normal 0.83-4.51 [facility] Comment on above: Performed By: #### Ruth Ann 882-1, L700.8000, L500.4050, L100.0100 ####[facility] [address] [place], [address] Absolute Neut 4.5 X10 3/uL Normal 2.0-7.7 [facility] Comment on above: Performed By: #### Ruth Ann 882-1, L700.8000, L500.4050, L100.0100 ####[facility] [address] [place], [address] Basophils/100 WBC (Bld) 0.3 % Normal 0-1 [facility] Comment on above: Performed By: #### Ruth Ann 882-1, L700.8000, L500.4050, L100.0100 ####[facility] [address] [place], [address] Eosinophils/100 WBC (Bld) 2.2 % Normal 0-5 [facility] Comment on above: Performed By: ###Dwight Vallecillo 882-1, L700.8000, L500.4050, L100.0100 ####[facility] [address] [place], [address] Erythrocyte distribution width (RBC) [Ratio] 15.2 % High 11.6-14.6 [facility] Comment on above: Performed By: #### Ruth Ann 882-1, L700.8000, L500.4050, L100.0100 ####[facility] [address] [place], [address] Hematocrit (Bld) [Volume fraction] 34.9 % Low 37-47 [facility] Comment on above: Performed By: #### Ruth Ann 882-1, L700.8000, L500.4050, L100.0100 ####[facility] [address] [place], [address] Hemoglobin (Bld) [Mass/Vol] 11.7 g/dL Low 12.0-15.0 [facility] Comment on above: Performed By: #### Ruth Ann 882-1, L700.8000, L500.4050, L100.0100 ####[facility] [address] [place], [address] IG% 0.300 Normal 0.0-0.9 [facility] Comment on above: Result Comment: IG% - Immature Granulocytes (promyelocytes, myelocytes and metamyelocytes) > 1% indicates that a LEFT SHIFT is Present. Performed By: #### Ruth Ann 882-1, L700.8000, L500.4050, L100.0100 ####[facility] [address] [place], [address] Lymphocytes/100 WBC (Bld) 31.8 % Normal 19-41 [facility] Comment on above: Performed By: #### Ruth Ann 882-1, L700.8000, L500.4050, L100.0100 ####[facility] [address] [place], [address] MCH (RBC) [Entitic mass] 29.0 pg Normal 27.0-32.0 [facility] Comment on above: Performed By: #### Ruth Ann 882-1, L700.8000, L500.4050, L100.0100 ####[facility] [address] [place], [address] MCHC (RBC) [Mass/Vol] 33.5 g/dL Normal 32-36 [facility] Comment on above: Performed By: #### Ruth Ann 882-1, L700.8000, L500.4050, L100.0100 ####[facility] [address] [place], [address] MCV (RBC) [Entitic vol] 86.4 fL Normal 81-99 [facility] Comment on above: Performed By: #### Ruth Ann 882-1, L700.8000, L500.4050, L100.0100 ####[facility] [address] [place], [address] Monocytes/100 WBC (Bld) 6.9 % Normal 0-10 [facility] Comment on above: Performed By: #### Ruth Ann 882-1, L700.8000, L500.4050, L100.0100 ####[facility] [address] [place], [address] Neutrophils/100 WBC (Bld) 58.5 % Normal 47-70 [facility] Comment on above: Performed By: ###Dwight Vallecillo 882-1, L700.8000, L500.4050, L100.0100 ####[facility] [address] [place], [address] Nucleated RBC (Bld) [#/Vol] 0 10*3/uL Normal 0-5 [facility] Comment on above: Performed By: ###Dwight Vallecillo 882-1, L700.8000, L500.4050, L100.0100 ####[facility] [address] [place], [address] Platelet mean volume (Bld) [Entitic vol] 11.2 fL Normal 6.2-12.0 [facility] Comment on above: Performed By: ###Dwight Vallecillo 882-1, L700.8000, L500.4050, L100.0100 ####[facility] [address] [place], [address] Platelets (Bld) [#/Vol] 180 10*3/uL Normal 150-450 [facility] Comment on above: Performed By: #### Ruth Ann 882-1, L700.8000, L500.4050, L100.0100 ####[facility] [address] [place], [address] RBC (Bld) [#/Vol] 4.04 10*6/uL Low 4.2-5.4 [facility] Comment on above: Performed By: ###Dwight Vallecillo 882-1, L700.8000, L500.4050, L100.0100 ####[facility] [address] [place], [address] RDW SD 48.6 fl High 35.1-43.9 [facility] Comment on above: Performed By: ###Dwight Vallecillo 882-1, L700.8000, L500.4050, L100.0100 ####[facility] [address] [place], [address] WBC (Bld) [#/Vol] 7.6 10*3/uL Normal 4.4-11.0 [facility] Comment on above: Performed By: ##Jag Vallecillo 882-1, L700.8000, L500.4050, L100.0100 ####[facility] [address] [place], [address] Carbon dioxide, total [Moles /volume] in Central venous bloodOrdered By: René Mohan on 05-06-2025 CO2 [Moles/Vol] 23.3 mmol/L 21.0-32.0 [facility] Chloride assayOrdered By: Chivo Mohan on 05-06-2025 Chloride [Moles/Vol] 103 mmol/L 98-108 [facility] Comprehensive Metabolic Prof ilon 05-06-2025 Albumin [Mass/Vol] 4.1 g/dL Normal 3.5-5.0 [facility] Comment on above: Performed By: ###Dwight Vallecillo 882-1, L700.8000, L500.4050, L100.0100 ####[facility] [address] [place], [address] Albumin/Globulin [Mass ratio] 1.5 {ratio} Normal 0.9-2.4 [facility] Comment on above: Performed By: #### Ruth Ann 882-1, L700.8000, L500.4050, L100.0100 ####[facility] [address], [address] ALK PHOS 57 U/L Normal 35-104 [facility] Comment on above: Performed By: #### Ruth Ann 882-1, L700.8000, L500.4050, L100.0100 ####[facility] [address], [address] ALT [Catalytic activity/Vol] 13 U/L Normal <=34 [facility] Comment on above: Performed By: #### Ruth Ann 882-1, L700.8000, L500.4050, L100.0100 ####[facility] [address] [place], [address] AST [Catalytic activity/Vol] 15 U/L Normal <=31 [facility] Comment on above: Performed By: #### Ruth Ann 882-1, L700.8000, L500.4050, L100.0100 ####[facility] [address] [place], [address] Bilirubin [Mass/Vol] 0.19 mg/dL Normal 0.00-1.30 [facility] Comment on above: Performed By: #### Ruth Ann 882-1, L700.8000, L500.4050, L100.0100 ####[facility] [address], [address] BUN/CRE 13.3 RATIO Normal 10-20 [facility] Comment on above: Performed By: ###Dwight Vallecillo 882-1, L700.8000, L500.4050, L100.0100 ####[facility] [address] [place], [address] Calcium [Mass/Vol] 9.3 mg/dL Normal 7.6-11.0 [facility] Comment on above: Performed By: #### Ruth Ann 882-1, L700.8000, L500.4050, L100.0100 ####[facility] [address] [place], [address] Chloride [Moles/Vol] 103 mmol/L Normal 98-108 [facility] Comment on above: Performed By: #### Ruth Ann 882-1, L700.8000, L500.4050, L100.0100 ####[facility] [address] [place], [address] CO2 [Moles/Vol] 23.3 mmol/L Normal 21.0-32.0 [facility] Comment on above: Performed By: #### Ruth Ann 882-1, L700.8000, L500.4050, L100.0100 ####[facility] [address] [place], [address] Creatinine [Mass/Vol] 0.66 mg/dL Low 0.70-1.20 [facility] Comment on above: Performed By: #### Ruth Ann 882-1, L700.8000, L500.4050, L100.0100 ####[facility] [address] [place], [address] ECRCL 165.01 ml/min Normal 50-250 [facility] Comment on above: Performed By: #### Ruth Ann 882-1, L700.8000, L500.4050, L100.0100 ####[facility] [address] [place], [address] GAP 9 Normal 5-15 [facility] Comment on above: Performed By: #### B 882-1, L700.8000, L500.4050, L100.0100 ####[facility] [address] [place], [address] GFR/1.73 sq M.predicted among non-blacks MDRD (S/P/Bld) [Vol rate/Area] 121 mL/min/{1.73_m2} Normal >60 [facility] Comment on above: Result Comment: mL/m in/1.73m2 CKD-EPI Creatinine Equation (2020) Performed By: #### Ruth Ann 882-1, L700.8000, L500.4050, L100.0100 ####[facility] [address] [place], [address] Globulin (S) [Mass/Vol] 2.8 g/dL Normal 2.2-4.2 [facility] Comment on above: Performed By: #### Ruth Ann 882-1, L700.8000, L500.4050, L100.0100 ####[facility] [address] [place], [address] Glucose [Mass/Vol] 115 mg/dL High 70-99 [facility] Comment on above: Performed By: #### Ruth Ann 882-1, L700.8000, L500.4050, L100.0100 ####[facility] [address] [place], [address] Potassium [Moles/Vol] 4.1 mmol/L Normal 3.3-5.1 [facility] Comment on above: Performed By: #### Ruth Ann 882-1, L700.8000, L500.4050, L100.0100 ####[facility] [address] [place], [address] Sodium [Moles/Vol] 136 mmol/L Normal 133-145 [facility] Comment on above: Performed By: #### Ruth Ann 882-1, L700.8000, L500.4050, L100.0100 ####[facility] [address] [place], [address] T PROT 6.9 g/dL Normal 5.9-8.4 [facility] Comment on above: Performed By: #### B 882-1, L700.8000, L500.4050, L100.0100 ####[facility] [address] 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 She presents because of increased vaginal bleeding that started 2 days ago, and pelvic cramping as well. [facility] Medical History Migraine Anxiety Paresthesias [...] I will perform a pelvic examination with office support to see the extent of bleeding that [...] antibiotics a (more content not included)... Normal [facility] Eosinophil percentageOrdered By: René Mohan on 05-06-2025 Eosinophils/100 WBC (Bld) 2.2 % 0-5 [facility] Erythrocyte distribution wid th ratioOrdered By: René Mohan on 05-06-2025 Erythrocyte distribution width (RBC) [Ratio] 15.2 % High 11.6-14.6 [facility] Erythrocyte distribution wid th standard deviationOrdered By: René Mohan on 05-06-2025 Erythrocyte distribution width (RBC) [Ratio] 48.6 fl High 35.1-43.9 [facility] Glomerular filtration rate ( GFR) estimation/1.73 sq m using serum, plasma, or whole bOrdered By: René Mohan on 05-06-2025 GFR/1.73 sq M.predicted among non-blacks MDRD (S/P/Bld) [Vol rate/Area] 121 mL/min/{1.73_m2} >60 [facility] Comment on above: mL/min/1.73m2 CKD-EP I Creatinine Equation (2020) Hematocrit Auto (Bld) [Volum e fraction]Ordered By: René Mohan on 05-06-2025 Hematocrit (Bld) [Volume fraction] 34.9 % Low 37-47 [facility] Hemoglobin measurementOrdere d By: René Mohan on 05-06-2025 Hemoglobin (Bld) [Mass/Vol] 11.7 g/dL Low 12.0-15.0 [facility] Immature granulocytes/100 WB C Auto (Bld)Ordered By: René Mohan on 05-06-2025 Immature granulocytes/100 WBC (Bld) 0.300 % 0.0-0.9 [facility] Comment on above: IG% - Immature Granu locytes (promyelocytes, myelocytes and metamyelocytes) > 1% indicates that a LEFT SHIFT is Present. Ketones Test strip Ql (U)Ord ered By: René Mohan on 05-06-2025 Ketones Ql (U) Negative Negative [facility] Laboratory - Chemistry and C hemistry - challengeOrdered By: René Mohan on 05-06-2025 AST [Catalytic activity/Vol] 15 U/L <32 [facility] MCV (mean corpuscular volume ) determinationOrdered By: René Mohan on 05-06-2025 MCV (RBC) [Entitic vol] 86.4 fL 81-99 [facility] Mean corpuscular hemoglobin (MCH) determinationOrdered By: René Mohan on 05-06-2025 MCH (RBC) [Entitic mass] 29.0 pg 27.0-32.0 [facility] Mean corpuscular hemoglobin concentration (MCHC) determinationOrdered By: René Mohan on 05-06-2025 MCHC (RBC) [Mass/Vol] 33.5 g/dL 32-36 [facility] Mean platelet volume determi nationOrdered By: René Mohan on 05-06-2025 Platelet mean volume (Bld) [Entitic vol] 11.2 fL 6.2-12.0 [facility] Microscopic analysis of urin e for red blood cells (RBC)Ordered By: René Mohan on 05-06-2025 Microscopic analysis of urine for red blood cells (RBC) 0-5 SEEN /hpf 0-5 [facility] Monocyte percentageOrdered B y: René Mohan on 05-06-2025 Monocytes/100 WBC (Bld) 6.9 % 0-10 [facility] Mucus LM Ql (Urine sed)Order ed By: René Mohan on 05-06-2025 Mucus Ql (Urine sed) 0 SEEN /hpf [facility] Neutrophil percentageOrdered By: René Mohan on 05-06-2025 Neutrophils/100 WBC (Bld) 58.5 % 47-70 [facility] Nitrite Test strip Ql (U)Ord ered By: René Mohan on 05-06-2025 Nitrite Ql (U) Negative Negative [facility] Nucleated red blood cell per centageOrdered By: René Mohan on 05-06-2025 Nucleated RBC/100 WBC (Bld) [Ratio] 0 % 0-5 [facility] Platelet countOrdered By: Chivo Mohan on 05-06-2025 Platelets (Bld) [#/Vol] 180 10*3/uL 150-450 [facility] Potassium measurement (mass/ volume)Ordered By: René Mohan on 05-06-2025 Potassium (Unsp spec) [Mass/Vol] 4.1 mmol/L 3.3-5.1 [facility] Protein Test strip Ql (U)Ord ered By: René Mohan on 05-06-2025 Protein Ql (U) Negative Negative [facility] RBC Auto (Bld) [#/Vol]Ordere d By: René Mohan on 05-06-2025 RBC (Bld) [#/Vol] 4.04 10*6/uL Low 4.2-5.4 [facility] Serum creatinine measurement (mass/volume)Ordered By: René Mohan on 05-06-2025 Creatinine [Mass/Vol] 0.66 mg/dL Low 0.70-1.20 [facility] Serum globulin measurementOr dered By: René Mohan on 05-06-2025 Globulin (S) [Mass/Vol] 2.8 g/dL 2.2-4.2 [facility] Serum glucose measurement (m ass/volume)Ordered By: René Mohan on 05-06-2025 Glucose [Mass/Vol] 115 mg/dL High 70-99 [facility] Serum human chorionic gonado tropin detection for pregnancyOrdered By: René Mohan on 05-06-2025 HCG ( test) [place]l [address] mIU/mL High <9 [facility] Comment on above: Gestational Age0.2-1 Week: 5-50 mIU/mL1-2 Weeks: 50-500 mIU/mL2-3 Weeks: 100-5000 mIU/mL3-4 Weeks: 500-10,000 mIU/mL4-5 Weeks:1000-50,000 mIU/mL5-6 Weeks: 10,000-100,000 mIU/mL6-8 Weeks: 15,000-200,000 mIU/mL2-3 Months:10,000-100,000 mIU/mL Serum or plasma alanine willett otransferase (ALT) measurementOrdered By: René Mohan on 05-06-2025 ALT [Catalytic activity/Vol] 13 U/L <35 [facility] Serum or plasma albumin jelani urement (mass/volume)Ordered By: René Mohan on 05-06-2025 Albumin [Mass/Vol] 4.1 g/dL 3.5-5.0 [facility] Serum or plasma albumin/glob ulin mass ratioOrdered By: René Mohan on 05-06-2025 Albumin/Globulin [Mass ratio] 1.5 {ratio} 0.9-2.4 [facility] Serum or plasma alkaline vnicent sphatase measurementOrdered By: René Mohan on 05-06-2025 ALP [Catalytic activity/Vol] 57 U/L 35-104 [facility] Serum or plasma calcium jelani urement (mass/volume)Ordered By: René Mohan on 05-06-2025 Calcium [Mass/Vol] 9.3 mg/dL 7.6-11.0 [facility] Serum or plasma urea nitroge n measurement (mass/volume)Ordered By: René Mohan on 05-06-2025 Urea nitrogen [Mass/Vol] 9 mg/dL 4-19 [facility] Sodium levelOrdered By: René Mohan on 05-06-2025 Sodium [Moles/Vol] 136 mmol/L 133-145 [facility] Squamous epithelial cells de tection in urine sediment by light microscopyOrdered By: René Mohan on 05-06-2025 Epithelial cells.squamous LM Ql (Urine sed) 5-10 SEEN /hpf 5-10 [facility] Total proteinOrdered By: Estelita Mohan on 05-06-2025 Protein [Mass/Vol] 6.9 g/dL 5.9-8.4 [facility] Transvaginal w/Preg USon Transvaginal w/Preg US [facility] Imaging Services [address] [place], [place] [id number] Transvaginal w/Preg US MR#: [id number] Acct: [id number] Name: BETSY MESA Rep #: [id number] : 1995 F 30 From: Laurita Talley PCP: ARLINE CORADO Status: REG ER Study: Transvaginal w/Preg US Date of Exam: 05/06/25 Exam# [id number] Ordering Dr: René Mohan MD PROCEDURE: TRANSVAGINAL [...] x 3.4 x 1.8 cm. Reading Location: [id number] CC: Dr. René Mohan MD; ARLINE CORADO Director Of Real Estate: Signed Normal [facility] Urinalysis, Completeon 05-06 EPI,SQUAMOUS 5-10 SEEN Normal 5-10 [facility] Comment on above: Order Comment: CLEAN CATCH Performed By: #### L 400.0001 ####[facility] [address] [place], [address] RBC 0-5 SEEN Normal 0-5 [facility] Comment on above: Order Comment: CLEAN CATCH Performed By: #### L 400.0001 ####[facility] [address] [place], [address] WBC 0-5 SEEN Normal 0-5 [facility] Comment on above: Order Comment: CLEAN CATCH Performed By: #### L 400.0001 ####[facility] [address] [place], [address] BACTERIA 0 SEEN Normal None Seen [facility] Comment on above: Order Comment: CLEAN CATCH Performed By: #### L 400.0001 ####[facility] [address] [place], [address] Mucus Ql (Urine sed) 0 SEEN Normal [facility] Comment on above: Order Comment: CLEAN CATCH Performed By: #### L 400.0001 ####[facility] [address] [place], [address] Urine clarityOrdered By: Estelita Mohan on 05-06-2025 Clarity (U) Clear Clear [facility] Urine color determinationOrd ered By: René Mohan on 05-06-2025 Color (U) Yellow Yellow [facility] Urine glucose detectionOrder ed By: René Mohan on 05-06-2025 Glucose Ql (U) Normal mg/dl Normal [facility] Urine leukocyte esterase det ection by dipstickOrdered By: René Mohan on 05-06-2025 Leukocyte esterase Test strip Ql (U) 25 /ul High Negative [facility] Urine pHOrdered By: René tolbert on 05-06-2025 pH (U) 6.0 [pH] 5.0 - 8.0 [facility] Urine sediment bacteria coun t by microscopy (number/high power field)Ordered By: René Mohan on 05-06-2025 Bacteria LM.HPF (Urine sed) [#/Area] 0 /[HPF] None Seen [facility] Urine specific gravity measu rementOrdered By: René Mohan on 05-06-2025 Specific gravity (U) [Rel density] 1.020 1.002-1.030 [facility] Urine urobilinogen measureme ntOrdered By: René Mohan on 05-06-2025 Urobilinogen Ql (U) Normal mg/dl Normal [facility] White blood cell (WBC) count Ordered By: René Mohan on 05-06-2025 WBC (Bld) [#/Vol] 7.6 10*3/uL 4.4-11.0 [facility] White blood cell countOrdere d By: René Mohan on 05-06-2025 White blood cell count 0-5 SEEN /hpf 0-5 [facility] hCG Titer Quant., Serumon HCG QUANT. 85950 mIU/mL High <9 non-preg [facility] Comment on above: Result Comment: Gest ational Age 0.2-1 Week: 5-50 mIU/mL 1-2 Weeks: 50-500 mIU/mL 2-3 Weeks: 100-5000 mIU/mL 3-4 Weeks: 500-10,000 mIU/mL 4-5 Weeks:1000-50,000 mIU/mL 5-6 Weeks: 10,000-100,000 mIU/mL 6-8 Weeks: 15,000-200,000 mIU/mL 2-3 Months:10,000-100,000 mIU/mL Performed By: #### B 882-1, L700.8000, L500.4050, L100.0100 ####[facility] [address] [place], [address] Absolute lymphocyte countOrd ered By: Ludwig Aranda on 05-03-2025 Lymphocytes Auto (Unsp spec) [#/Vol] 2.84 10*3/uL 0.83-4.51 [facility] Absolute neutrophil countOrd ered By: Ludwigariel Aranda on 05-03-2025 Neutrophils (Bld) [#/Vol] 4.8 10*3/uL 2.0-7.7 [facility] Anion gap in Serum or Plasma Ordered By: Ludwig Gretchen on 05-03-2025 Anion gap [Moles/Vol] 11 mmol/L - [facility] Automated lymphocyte count a s percentage of total leukocytesOrdered By: Ludwig Manoj on 05-03-2025 Lymphocytes/100 WBC Auto (Unsp spec) 34.3 % [facility] BUN/creatinine ratioOrdered By: [facility]ul[facility]rakashJanay on 05-03-2025 Urea nitrogen/Creatinine [Mass ratio] 12.3 mg/mg 05-18 [facility] Basic Metabolic Profile (BMP )on 05-03-2025 BUN/CRE 12.3 RATIO Normal 05-18 [facility] Comment on above: Performed By: #### L 500.2500, L700.8000, L100.0100 ####[facility] [address] [place], [address] Calcium [Mass/Vol] 9.6 mg/dL Normal 7.6-11.0 [facility] Comment on above: Performed By: #### L 500.2500, L700.8000, L100.0100 ####[facility] [address] [place], [address] Chloride [Moles/Vol] 104 mmol/L Normal 98-108 [facility] Comment on above: Performed By: #### L 500.2500, L700.8000, L100.0100 ####[facility] [address] [place], [address] CO2 [Moles/Vol] 21.7 mmol/L Normal 21.0-32.0 [facility] Comment on above: Performed By: #### L 500.2500, L700.8000, L100.0100 ####[facility] [address] [place], [address] Creatinine [Mass/Vol] 0.69 mg/dL Low 0.70-1.20 [facility] Comment on above: Performed By: #### L 500.2500, L700.8000, L100.0100 ####[facility] [address] [place], [address] ECRCL 159.34 ml/min Normal 50-250 [facility] Comment on above: Performed By: #### L 500.2500, L700.8000, L100.0100 ####[facility] [address] [place], [address] GAP 11 Normal 5-15 [facility] Comment on above: Performed By: #### L 500.2500, L700.8000, L100.0100 ####[facility] [address] [place], [address] GFR/1.73 sq M.predicted among non-blacks MDRD (S/P/Bld) [Vol rate/Area] 120 mL/min/{1.73_m2} Normal >60 [facility] Comment on above: Result Comment: mL/m in/1.73m2 CKD-EPI Creatinine Equation (2020) Performed By: #### L 500.2500, L700.8000, L100.0100 ####[facility] [address] [place], [address] Glucose [Mass/Vol] 126 mg/dL High 70-99 [facility] Comment on above: Performed By: #### L 500.2500, L700.8000, L100.0100 ####[facility] [address] [place], [address] Potassium [Moles/Vol] 4.3 mmol/L Normal 3.3-5.1 [facility] Comment on above: Result Comment: Hemo lysis present, Results??could be affected. ?? Performed By: #### L 500.2500, L700.8000, L100.0100 ####[facility] [address] [place], [address] Sodium [Moles/Vol] 136 mmol/L Normal 133-145 [facility] Comment on above: Performed By: #### L 500.2500, L700.8000, L100.0100 ####[facility] [address] [place], [address] Urea nitrogen [Mass/Vol] 9 mg/dL Normal 4-19 [facility] Comment on above: Performed By: #### L 500.2500, L700.8000, L100.0100 ####[facility] [address] [place], [address] Basophil percentageOrdered B y: Ludwig Aranda on 05-03-2025 Basophils/100 WBC (Bld) 0.4 % 0-1 [facility] Bilirubin Test strip Ql (U)O rdered By: Ludwig Aranda on 05-03-2025 Bilirubin Ql (U) Negative Negative [facility] Brain/Head without Contrasto n 05-03-2025 Brain/Head without Contrast [facility] Imaging Services [address] [place] [address] Brain/Head without Contrast MR#: [id number] Acct: [id number] Name: BETSY MESA Rep #: [id number] : 1995 F 30 From: Julio Cesar Verdugo MD PCP: ARLINE CORADO Status: REG ER Study: Brain/Head without Contrast Date of Exam: 12/21 Exam# [id number] Ordering Dr: Ludwig Aranda DO PROCEDURE: BRAIN/HEAD [...] No acute intracranial CT abnormality. Reading Location: [id number] CC: Dr. Ludwig Aranda DO; ARLINE CORADO Director Of Real Estate: Signed Normal [facility] CBC W/Diff, Automatedon 10-0 Absolute Lymph 2.84 X10 3/uL Normal 0.83-4.51 [facility] Comment on above: Performed By: #### L 500.2500, L700.8000, L100.0100 ####[facility] [address] [place], [address] Absolute Neut 4.8 X10 3/uL Normal 2.0-7.7 [facility] Comment on above: Performed By: #### L 500.2500, L700.8000, L100.0100 ####[facility] [address] [place], [address] Basophils/100 WBC (Bld) 0.4 % Normal 0-1 [facility] Comment on above: Performed By: #### L 500.2500, L700.8000, L100.0100 ####[facility] [address] [place], [address] Eosinophils/100 WBC (Bld) 1.8 % Normal 0-5 [facility] Comment on above: Performed By: #### L 500.2500, L700.8000, L100.0100 ####[facility] [address] [place], [address] Erythrocyte distribution width (RBC) [Ratio] 15.6 % High 11.6-14.6 [facility] Comment on above: Performed By: #### L 500.2500, L700.8000, L100.0100 ####[facility] [address] [place], [address] Hematocrit (Bld) [Volume fraction] 35.4 % Low 37-47 [facility] Comment on above: Performed By: #### L 500.2500, L700.8000, L100.0100 ####[facility] [address] [place], [address] Hemoglobin (Bld) [Mass/Vol] 11.7 g/dL Low 12.0-15.0 [facility] Comment on above: Performed By: #### L 500.2500, L700.8000, L100.0100 ####[facility] [address] [place], [address] IG% 0.200 Normal 0.0-0.9 [facility] Comment on above: Result Comment: IG% - Immature Granulocytes (promyelocytes, myelocytes and metamyelocytes) > 1% indicates that a LEFT SHIFT is Present. Performed By: #### L 500.2500, L700.8000, L100.0100 ####[facility] [address] [place], [address] Lymphocytes/100 WBC (Bld) 34.3 % Normal 19-41 [facility] Comment on above: Performed By: #### L 500.2500, L700.8000, L100.0100 ####[facility] [address] [place], [address] MCH (RBC) [Entitic mass] 28.5 pg Normal 27.0-32.0 [facility] Comment on above: Performed By: #### L 500.2500, L700.8000, L100.0100 ####[facility] [address] [place], [address] MCHC (RBC) [Mass/Vol] 33.1 g/dL Normal 32-36 [facility] Comment on above: Performed By: #### L 500.2500, L700.8000, L100.0100 ####[facility] [address] [place], [address] MCV (RBC) [Entitic vol] 86.3 fL Normal 81-99 [facility] Comment on above: Performed By: #### L 500.2500, L700.8000, L100.0100 ####[facility] [address] [place], [address] Monocytes/100 WBC (Bld) 5.6 % Normal 0-10 [facility] Comment on above: Performed By: #### L 500.2500, L700.8000, L100.0100 ####[facility] [address] [place], [address] Neutrophils/100 WBC (Bld) 57.7 % Normal 47-70 [facility] Comment on above: Performed By: #### L 500.2500, L700.8000, L100.0100 ####[facility] [address] [place], [address] Nucleated RBC (Bld) [#/Vol] 0 10*3/uL Normal 0-5 [facility] Comment on above: Performed By: #### L 500.2500, L700.8000, L100.0100 ####[facility] [address] [place], [address] Platelet mean volume (Bld) [Entitic vol] 10.6 fL Normal 6.2-12.0 [facility] Comment on above: Performed By: #### L 500.2500, L700.8000, L100.0100 ####[facility] [address] [place], [address] Platelets (Bld) [#/Vol] 169 10*3/uL Normal 150-450 [facility] Comment on above: Performed By: #### L 500.2500, L700.8000, L100.0100 ####[facility] [address] [place], [address] RBC (Bld) [#/Vol] 4.10 10*6/uL Low 4.2-5.4 [facility] Comment on above: Performed By: #### L 500.2500, L700.8000, L100.0100 ####[facility] [address] [place], [address] RDW SD 49.6 fl High 35.1-43.9 [facility] Comment on above: Performed By: #### L 500.2500, L700.8000, L100.0100 ####[facility] [address] [place], [address] WBC (Bld) [#/Vol] 8.3 10*3/uL Normal 4.4-11.0 [facility] Comment on above: Performed By: #### L 500.2500, L700.8000, L100.0100 ####[facility] [address] [place], [address] Carbon dioxide, total [Moles /volume] in Central venous bloodOrdered By: Ludwig Aranda on 05-03-2025 CO2 [Moles/Vol] 21.7 mmol/L 21.0-32.0 [facility] Chloride assayOrdered By: Carlos Aranda on 05-03-2025 Chloride [Moles/Vol] 104 mmol/L 98-108 [facility] Emergency Department Summary on 05-03-2025 Emergency Department Summary [facility] Medical Records Department [address] [place] [address] Emergency Department Summary 05/03/25 MR#: [id number] Acct: [id number] Name: BETSY MESA Rep #: [id number] : 1995 30 From: Ludwig Aranda DO [...] intact Psych: Cooperative, appropriate [facility] Anxiety Paresthesias Cervical radiculopathy [...] lower uter (more content not included)... Normal [facility] Eosinophil percentageOrdered By: Ludwig Aranda on 05-03-2025 Eosinophils/100 WBC (Bld) 1.8 % 0-5 [facility] Erythrocyte distribution wid th ratioOrdered By: [place] Manoj on 05-03-2025 Erythrocyte distribution width (RBC) [Ratio] 15.6 % High 11.6-14.6 [facility] Erythrocyte distribution wid th standard deviationOrdered By: Ludwig Angie Gustafson on 05-03-2025 Erythrocyte distribution width (RBC) [Ratio] 49.6 fl High 35.1-43.9 [facility] Glomerular filtration rate ( GFR) estimation/1.73 sq m using serum, plasma, or whole bOrdered By: Ludwig Aranda on 05-03-2025 GFR/1.73 sq M.predicted among non-blacks MDRD (S/P/Bld) [Vol rate/Area] 120 mL/min/{1.73_m2} >60 [facility] Comment on above: mL/min/1.73m2 CKD-EP I Creatinine Equation (2020) Hematocrit Auto (Bld) [Volum e fraction]Ordered By: Ludwig Aranda on 05-03-2025 Hematocrit (Bld) [Volume fraction] 35.4 % Low 37-47 [facility] Hemoglobin measurementOrdere d By: Ludwig Aranda on 05-03-2025 Hemoglobin (Bld) [Mass/Vol] 11.7 g/dL Low 12.0-15.0 [facility] Immature granulocytes/100 WB C Auto (Bld)Ordered By: Ludwig Aranda on 05-03-2025 Immature granulocytes/100 WBC (Bld) 0.200 % 0.0-0.9 [facility] Comment on above: IG% - Immature Granu locytes (promyelocytes, myelocytes and metamyelocytes) > 1% indicates that a LEFT SHIFT is Present. Ketones Test strip Ql (U)Ord ered By: Ludwig Aranda on 05-03-2025 Ketones Ql (U) Negative Negative [facility] MCV (mean corpuscular volume ) determinationOrdered By: Ludwig Aranda on 05-03-2025 MCV (RBC) [Entitic vol] 86.3 fL 81-99 [facility] Mean corpuscular hemoglobin (MCH) determinationOrdered By: Ludwig Aranda on 05-03-2025 MCH (RBC) [Entitic mass] 28.5 pg 27.0-32.0 [facility] Mean corpuscular hemoglobin concentration (MCHC) determinationOrdered By: Ludwig Aranda on 05-03-2025 MCHC (RBC) [Mass/Vol] 33.1 g/dL 32-36 [facility] Mean platelet volume determi nationOrdered By: Ludwig Aranda on 05-03-2025 Platelet mean volume (Bld) [Entitic vol] 10.6 fL 6.2-12.0 [facility] Microscopic analysis of urin e for red blood cells (RBC)Ordered By: Ludwig Aranda on 05-03-2025 Microscopic analysis of urine for red blood cells (RBC) 0-5 SEEN /hpf 0-5 [facility] Monocyte percentageOrdered B y: Ludwig Aranda on 05-03-2025 Monocytes/100 WBC (Bld) 5.6 % 0-10 [facility] Mucus LM Ql (Urine sed)Order ed By: Ludwig Aranda on 05-03-2025 Mucus Ql (Urine sed) 0 SEEN /hpf [facility] Neutrophil percentageOrdered By: Ludwig Aranda on 05-03-2025 Neutrophils/100 WBC (Bld) 57.7 % 47-70 [facility] Nitrite Test strip Ql (U)Ord ered By: Ludwig Aranda on 05-03-2025 Nitrite Ql (U) Negative Negative [facility] Nucleated red blood cell per centageOrdered By: Ludwig Aranda on 05-03-2025 Nucleated RBC/100 WBC (Bld) [Ratio] 0 % 0-5 [facility] Platelet countOrdered By: Carlos Aranda on 05-03-2025 Platelets (Bld) [#/Vol] 169 10*3/uL 150-450 [facility] Potassium measurement (mass/ volume)Ordered By: Ludwig Aranda on 05-03-2025 Potassium (Unsp spec) [Mass/Vol] 4.3 mmol/L 3.3-5.1 [facility] Comment on above: Hemolysis present, R esults could be affected. Protein Test strip Ql (U)Ord ered By: Ludwig Aranda on 05-03-2025 Protein Ql (U) 30 mg/dl High Negative [facility] RBC Auto (Bld) [#/Vol]Ordere d By: Ludwig Aranda on 05-03-2025 RBC (Bld) [#/Vol] 4.10 10*6/uL Low 4.2-5.4 [facility] Serum creatinine measurement (mass/volume)Ordered By: Ludwig Aranda on 05-03-2025 Creatinine [Mass/Vol] 0.69 mg/dL Low 0.70-1.20 [facility] Serum glucose measurement (m ass/volume)Ordered By: Ludwig Aranda on 05-03-2025 Glucose [Mass/Vol] 126 mg/dL High 70-99 [facility] Serum human chorionic gonado tropin detection for pregnancyOrdered By: Ludwig Aranda on 05-03-2025 HCG ( test[place]l [address] mIU/mL High <9 [facility] Comment on above: Gestational Age0.2-1 Week: 5-50 mIU/mL1-2 Weeks: 50-500 mIU/mL2-3 Weeks: 100-5000 mIU/mL3-4 Weeks: 500-10,000 mIU/mL4-5 Weeks:1000-50,000 mIU/mL5-6 Weeks: 10,000-100,000 mIU/mL6-8 Weeks: 15,000-200,000 mIU/mL2-3 Months:10,000-100,000 mIU/mL Serum or plasma calcium jelani urement (mass/volume)Ordered By: Ludwig Gustafson on 05-03-2025 Calcium [Mass/Vol] 9.6 mg/dL 7.6-11.0 [facility] Serum or plasma urea nitroge n measurement (mass/volume)Ordered By: Ludwig Aranda on 05-03-2025 Urea nitrogen [Mass/Vol] 9 mg/dL 4-19 [facility] Sodium levelOrdered By: Manjit Aranda on 05-03-2025 Sodium [Moles/Vol] 136 mmol/L 133-145 [facility] Squamous epithelial cells de tection in urine sediment by light microscopyOrdered By: Ludwig Aranda on 05-03-2025 Epithelial cells.squamous LM Ql (Urine sed) 10-25 SEEN /hpf 5-10 [facility] Transitional cells detection in urine sediment by light microscopyOrdered By: Ludwig Aranda on 05-03-2025 Transitional cells LM Ql (Urine sed) 0-5 SEEN /hpf 0-5 [facility] Transvaginal w/Preg USon Transvaginal w/Preg US [facility] Imaging Services [address] [place], [place] [id number] Transvaginal w/Preg US MR#: [id number] Acct: [id number] Name: BETSY MESA Rep #: [id number] : 1995 F 30 From: Julio Cesar Verdugo MD PCP: ARLINE CORADO Status: REG ER Study: Transvaginal w/Preg US Date of Exam: 05/03/25 Exam# [id number] Ordering Dr: Ludwig Aranda DO PROCEDURE: TRANSVAGINAL [...] be paid on follow-up imaging. Reading Location: [id number] CC: Dr. Ludwig Aranda DO; ARLINE CORADO Director Of Real Estate: Signed Normal [facility] Urinalysis, Completeon 05-03 BACTERIA 1+ /hpf Normal None Seen [facility] Comment on above: Order Comment: CLEAN CATCH Performed By: #### L 400.0001 #### [facility] Laboratory [address] [place], [address] EPI,SQUAMOUS 10-25 SEEN Normal 5-10 [facility] Comment on above: Order Comment: CLEAN CATCH Performed By: #### L 400.0001 #### [facility] Laboratory [address] [place], [address] EPI,TRANSITION 0-5 SEEN Normal 0-5 [facility] Comment on above: Order Comment: CLEAN CATCH Performed By: #### L 400.0001 #### [facility] Laboratory [address] [place], [address] RBC 0-5 SEEN Normal 0-5 [facility] Comment on above: Order Comment: CLEAN CATCH Performed By: #### L 400.0001 #### [facility] Laboratory [address] [place], [address] WBC 10-25 SEEN Normal 0-5 [facility] Comment on above: Order Comment: CLEAN CATCH Performed By: #### L 400.0001 #### [facility] [address] [place], [address] Mucus Ql (Urine sed) 0 SEEN Normal [facility] Comment on above: Order Comment: CLEAN CATCH Performed By: #### L 400.0001 #### [facility] [address] [place], [address] Urine clarityOrdered By: Pavan Aranda on 05-03-2025 Clarity (U) Clear Clear [facility] Urine color determinationOrd ered By: Ludwig Aranda on 05-03-2025 Color (U) Yellow Yellow [facility] Urine glucose detectionOrder ed By: Ludwig Aranda on 05-03-2025 Glucose Ql (U) Normal mg/dl Normal [facility] Urine leukocyte esterase det ection by dipstickOrdered By: Ludwig Aranda on 05-03-2025 Leukocyte esterase Test strip Ql (U) 25 /ul High Negative [facility] Urine pHOrdered By: Ludwig Godinez on 05-03-2025 pH (U) 6.0 [pH] 5.0 - 8.0 [facility] Urine sediment bacteria coun t by microscopy (number/high power field)Ordered By: Ludwig Aranda on 05-03-2025 Bacteria LM.HPF (Urine sed) [#/Area] 1 /[HPF] None Seen [facility] Urine specific gravity measu rementOrdered By: Ludwig Aranda on 05-03-2025 Specific gravity (U) [Rel density] 1.025 1.002-1.030 [facility] Urine urobilinogen measureme ntOrdered By: Ludwigariel Aranda on 05-03-2025 Urobilinogen Ql (U) Normal mg/dl Normal [facility] White blood cell (WBC) count Ordered By: Ludwig Aranda on 05-03-2025 WBC (Bld) [#/Vol] 8.3 10*3/uL 4.4-11.0 [facility] White blood cell countOrdere d By: Ludwig Aranda on 05-03-2025 White blood cell count 10-25 SEEN /hpf 0-5 [facility] hCG Titer Quant., Serumon HCG QUANT. 75278 mIU/mL High <9 non-preg [facility] Comment on above: Result Comment: Gest ational Age 0.2-1 Week: 5-50 mIU/mL 1-2 Weeks: 50-500 mIU/mL 2-3 Weeks: 100-5000 mIU/mL 3-4 Weeks: 500-10,000 mIU/mL 4-5 Weeks:1000-50,000 mIU/mL 5-6 Weeks: 10,000-100,000 mIU/mL 6-8 Weeks: 15,000-200,000 mIU/mL 2-3 Months:10,000-100,000 mIU/mL Performed By: #### L 500.2500, L700.8000, L100.0100 ####[facility] [address] [place], [address] .Auto Diffon 04-17-2025 Basophil, Absolute 0.0 10 3/mcL Normal 0.0-0.3 [facility] Comment on above: Performed By: #### T SH, CBC, FERR, FE, PREGS, ADIFF, ANEU #### [address] [address] Lymphocyte, Absolute 2.9 10 3/mcL Normal 0.9-4.3 [facility] Comment on above: Performed By: #### T SH, CBC, FERR, FE, PREGS, ADIFF, ANEU #### [address] [address] Monocyte, Absolute 0.4 10 3/mcL Normal 0.1-1.4 [facility] Comment on above: Performed By: #### T SH, CBC, FERR, FE, PREGS, ADIFF, ANEU #### [address] [address] .Auto DiffOrdered By: SYSTEM SYSTEM on 04-17-2025 Basophils/100 WBC (Bld) 0.3 % Normal 0.0-2.5 AO Workflow SS Comment on above: Performed By: #### T SH, CBC, FERR, FE, PREGS, ADIFF, ANEU #### [address] [address] Eosinophil, Absolute 0.1 103/mcL Normal 0.0-0.7 [facility]flow SS Comment on above: Performed By: #### T SH, CBC, FERR, FE, PREGS, ADIFF, ANEU #### [address] [address] Eosinophils/100 WBC (Bld) 1.4 % Normal 0.0-6.0 [facility]flow SS Comment on above: Performed By: #### T SH, CBC, FERR, FE, PREGS, ADIFF, ANEU #### [address] [address] Lymphocytes/100 WBC (Bld) 36.7 % Normal 20.0-40.0 AO [facility]flow SS Comment on above: Performed By: #### T SH, CBC, FERR, FE, PREGS, ADIFF, ANEU #### [address] [address] Monocytes/100 WBC (Bld) 5.4 % Normal 2.0-13.0 AO [facility]flow SS Comment on above: Performed By: #### T SH, CBC, FERR, FE, PREGS, ADIFF, ANEU #### [address] [address] Neutrophils/100 WBC (Bld) 56.2 % Normal 50.0-75.0 AO Workflow SS Comment on above: Performed By: #### T SH, CBC, FERR, FE, PREGS, ADIFF, ANEU #### [address] [address] .NEUABSon 04-17-2025 Neutrophil, Absolute 4.5 10 3/mcL Normal 2.3-8.1 [facility] Comment on above: Performed By: #### T SH, CBC, FERR, FE, PREGS, ADIFF, ANEU #### [address] [address] CBCOrdered By: SYSTEM SYSTEM on 04-17-2025 Erythrocyte distribution width (RBC) [Ratio] 16.6 % High 11.5-15.5 AO Workflow SS Comment on above: Performed By: #### T SH, CBC, FERR, FE, PREGS, ADIFF, ANEU #### [address] [address] Hematocrit (Bld) [Volume fraction] 36.9 % Normal 34.0-46.0 AO Workflow SS Comment on above: Performed By: #### T SH, CBC, FERR, FE, PREGS, ADIFF, ANEU #### [address] [address] MCH (RBC) [Entitic mass] 28.3 pg Normal 27.0-33.0 AO Workflow SS Comment on above: Performed By: #### T SH, CBC, FERR, FE, PREGS, ADIFF, ANEU #### [address] [address] MCHC 33.6 G/dL Normal 32.0-36.0 AO Workflow SS Comment on above: Performed By: #### T SH, CBC, FERR, FE, PREGS, ADIFF, ANEU #### [address] [address] MCV (RBC) [Entitic vol] 84.0 fL Normal 80.0-99.0 AO Workflow SS Comment on above: Performed By: #### T SH, CBC, FERR, FE, PREGS, ADIFF, ANEU #### [place] [address] Platelet mean volume (Bld) [Entitic vol] 9.0 fL Normal 6.6-10.5 AO Workflow SS Comment on above: Performed By: #### T SH, CBC, FERR, FE, PREGS, ADIFF, ANEU #### [address] [address] CBCon 04-17-2025 Hgb 12.4 G/dL Normal 12.0-16.0 [facility] Comment on above: Performed By: #### T SH, CBC, FERR, FE, PREGS, ADIFF, ANEU #### [address] [address] Platelet 189 10 3/mcL Normal 150-450 [facility] Comment on above: Performed By: #### T SH, CBC, FERR, FE, PREGS, ADIFF, ANEU #### [address] [address] RBC 4.40 10 6/mcL Normal 4.10-5.30 [facility] Comment on above: Performed By: #### T SH, CBC, FERR, FE, PREGS, ADIFF, ANEU #### [place] [address] WBC 8.0 10 3/mcL Normal 4.5-10.8 [facility] Comment on above: Performed By: #### T SH, CBC, FERR, FE, PREGS, ADIFF, ANEU #### [place] [address] FEOrdered By: SYSTEM SYSTEM on 04-17-2025 Iron [Mass/Vol] 94 ug/dL Normal 50-170 AO ADM SS Comment on above: Performed By: #### H CGQ #### Zaheer [address] [address] FERROrdered By: SYSTEM Logic InstrumentE M on 04-17-2025 Ferritin [Mass/Vol] 21.0 ng/mL Normal 8.0-252.0 AO AD M SS Comment on above: Performed By: #### H CGQ #### Zaheer [address] [address] LABORATORYOrdered By: SYSTEM SYSTEM on 04-17-2025 Basophils [...] SS PREGSon 04-17-2025 test (s) Positive Normal [facility] Comment on above: Performed By: #### H CGQ #### Zaheer [id number] [place], [place] [address] PREGSOrdered By: Vinod johnson on 04-17-2025 test (s) int Detected Invalid Interpretation Code AO Rapid Testing SS Comment on above: Performed By: #### H CGQ #### Za[address] [place] [place], [place] [address] TSHOrdered By: SYSTEM SYSTEM on 04-17-2025 TSH Qn 0.67 m[IU]/L Normal 0.36-3.74 AO ADM SS Comment on above: Performed By: #### H CGQ #### Za[address] [place] [address] [place], [place] [address] Basic Metabolic Profile (BMP )on 03-23-2025 BUN/CRE 11.9 RATIO Normal 10-20 [facility] Comment on above: Performed By: #### L 500.2500, L100.0100, L501.5200, L700.6800 ####[facility] [address] [place], [address] Calcium [Mass/Vol] 9.0 mg/dL Normal 7.6-11.0 [facility] Comment on above: Performed By: #### L 500.2500, L100.0100, L501.5200, L700.6800 ####[facility] [address] [place], [address] Chloride [Moles/Vol] 105 mmol/L Normal 98-108 [facility] Comment on above: Performed By: #### L 500.2500, L100.0100, L501.5200, L700.6800 ####[facility] [address] [place], [address] CO2 [Moles/Vol] 23.8 mmol/L Normal 21.0-32.0 [facility] Comment on above: Performed By: #### L 500.2500, L100.0100, L501.5200, L700.6800 ####[facility] [address] [place], [address] Creatinine [Mass/Vol] 0.79 mg/dL Normal 0.70-1.20 [facility] Comment on above: Performed By: #### L 500.2500, L100.0100, L501.5200, L700.6800 ####[facility] [address] [place], [address] ECRCL 138.70 ml/min Normal 50-250 [facility] Comment on above: Performed By: #### L 500.2500, L100.0100, L501.5200, L700.6800 ####[facility] [address] [place], [address] GAP 11 Normal 5-15 [facility] Comment on above: Performed By: #### L 500.2500, L100.0100, L501.5200, L700.6800 ####[facility] [address] [place], [address] GFR/1.73 sq M.predicted among non-blacks MDRD (S/P/Bld) [Vol rate/Area] 103 mL/min/{1.73_m2} Normal >60 [facility] Comment on above: Result Comment: mL/m in/1.73m2 CKD-EPI Creatinine Equation (2020) Performed By: #### L 500.2500, L100.0100, L501.5200, L700.6800 ####[facility] [address] [place], [address] Glucose [Mass/Vol] 136 mg/dL High 70-99 [facility] Comment on above: Performed By: #### L 500.2500, L100.0100, L501.5200, L700.6800 ####[facility] [address] [place], [address] Potassium [Moles/Vol] 3.5 mmol/L Normal 3.3-5.1 [facility] Comment on above: Performed By: #### L 500.2500, L100.0100, L501.5200, L700.6800 ####[facility] [address] [place], [address] Sodium [Moles/Vol] 139 mmol/L Normal 133-145 [facility] Comment on above: Performed By: #### L 500.2500, L100.0100, L501.5200, L700.6800 ####[facility] [address] [place], [address] Urea nitrogen [Mass/Vol] 9 mg/dL Normal 4-19 [facility] Comment on above: Performed By: #### L 500.2500, L100.0100, L501.5200, L700.6800 ####[facility] [address] [place], [address] CBC W/Diff, Automatedon 08-2 5-2024 Absolute Lymph 3.11 X10 3/uL Normal 0.83-4.51 [facility] Comment on above: Performed By: #### L 500.2500, L100.0100, L501.5200, L700.6800 ####[facility] [address] [place], [address] Absolute Neut 3.5 X10 3/uL Normal 2.0-7.7 [facility] Comment on above: Performed By: #### L 500.2500, L100.0100, L501.5200, L700.6800 ####[facility] [address] [place], [address] Basophils/100 WBC (Bld) 0.5 % Normal 0-1 [facility] Comment on above: Performed By: #### L 500.2500, L100.0100, L501.5200, L700.6800 ####[facility] [address] [place], [address] Eosinophils/100 WBC (Bld) 2.6 % Normal 0-5 [facility] Comment on above: Performed By: #### L 500.2500, L100.0100, L501.5200, L700.6800 ####[facility] [address] [place], [address] Erythrocyte distribution width (RBC) [Ratio] 15.2 % High 11.6-14.6 [facility] Comment on above: Performed By: #### L 500.2500, L100.0100, L501.5200, L700.6800 ####[facility] [address] [place], [address] Hematocrit (Bld) [Volume fraction] 33.4 % Low 37-47 [facility] Comment on above: Performed By: #### L 500.2500, L100.0100, L501.5200, L700.6800 ####[facility] [address] [place], [address] Hemoglobin (Bld) [Mass/Vol] 11.1 g/dL Low 12.0-15.0 [facility] Comment on above: Performed By: #### L 500.2500, L100.0100, L501.5200, L700.6800 ####[facility] [address] [place], [address] IG% 0.100 Normal 0.0-0.9 [facility] Comment on above: Result Comment: IG% - Immature Granulocytes (promyelocytes, myelocytes and metamyelocytes) > 1% indicates that a LEFT SHIFT is Present. Performed By: #### L 500.2500, L100.0100, L501.5200, L700.6800 ####[facility] [address] [place], [address] Lymphocytes/100 WBC (Bld) 42.1 % High 19-41 [facility] Comment on above: Performed By: #### L 500.2500, L100.0100, L501.5200, L700.6800 ####[facility] [address] [place], [address] MCH (RBC) [Entitic mass] 28.2 pg Normal 27.0-32.0 [facility] Comment on above: Performed By: #### L 500.2500, L100.0100, L501.5200, L700.6800 ####[facility] [address] [place], [address] MCHC (RBC) [Mass/Vol] 33.2 g/dL Normal 32-36 [facility] Comment on above: Performed By: #### L 500.2500, L100.0100, L501.5200, L700.6800 ####[facility] [address] [place], [address] MCV (RBC) [Entitic vol] 85.0 fL Normal 81-99 [facility] Comment on above: Performed By: #### L 500.2500, L100.0100, L501.5200, L700.6800 ####[facility] [address] [place], [address] Monocytes/100 WBC (Bld) 6.6 % Normal 0-10 [facility] Comment on above: Performed By: #### L 500.2500, L100.0100, L501.5200, L700.6800 ####[facility] [address] [place], [address] Neutrophils/100 WBC (Bld) 48.1 % Normal 47-70 [facility] Comment on above: Performed By: #### L 500.2500, L100.0100, L501.5200, L700.6800 ####[facility] [address] [place], [address] Nucleated RBC (Bld) [#/Vol] 0 10*3/uL Normal 0-5 [facility] Comment on above: Performed By: #### L 500.2500, L100.0100, L501.5200, L700.6800 ####[facility] [address] [place], [address] Platelet mean volume (Bld) [Entitic vol] 11.4 fL Normal 6.2-12.0 [facility] Comment on above: Performed By: #### L 500.2500, L100.0100, L501.5200, L700.6800 ####[facility] [address] [place], [address] Platelets (Bld) [#/Vol] 210 10*3/uL Normal 150-450 [facility] Comment on above: Performed By: #### L 500.2500, L100.0100, L501.5200, L700.6800 ####[facility] [address] [place], [address] RBC (Bld) [#/Vol] 3.93 10*6/uL Low 4.2-5.4 [facility] Comment on above: Performed By: #### L 500.2500, L100.0100, L501.5200, L700.6800 ####[facility] [address] [place], [address] RDW SD 47.3 fl High 35.1-43.9 [facility] Comment on above: Performed By: #### L 500.2500, L100.0100, L501.5200, L700.6800 ####[facility] [address] [place], [address] WBC (Bld) [#/Vol] 7.4 10*3/uL Normal 4.4-11.0 [facility] Comment on above: Performed By: #### L 500.2500, L100.0100, L501.5200, L700.6800 ####[facility] [address] [place], [address] Emergency Department Summary on 03-23-2025 Emergency Department Summary [facility] Medical Records Department [address] [place] [address] Emergency Department Summary 03/23/25 MR#: [id number] Acct: [id number] Name: BETSY MESA Rep #: [id number] : 1995 30 From: Nelson Ulloa DO [...] or secondary infection she presents for evaluation [facility] Medical History Anxiety Paresthesias [...] drift no (more content not included)... Normal [facility] Magnesiumon 03-23-2025 Magnesium [Mass/Vol] 2.1 mg/dL Normal 1.5-2.2 [facility] Comment on above: Performed By: #### L 500.2500, L100.0100, L501.5200, L700.6800 ####[facility] [address] [place], [place], [address] ,Serum,hCG Quali.on 03-23-2025 HCG, SERUM QUAL Negative Normal [facility] Comment on above: Performed By: #### L 500.2500, L100.0100, L501.5200, L700.6800 ####[facility] [address] [place], [place], [id number] Absolute lymphocyte countOrd ered By: Nelson Ulloa on 03-22-2025 Lymphocytes Auto (Unsp spec) [#/Vol] 3.11 10*3/uL 0.83-4.51 [facility] Absolute neutrophil countOrd ered By: Nelson Ulloa on 03-22-2025 Neutrophils (Bld) [#/Vol] 3.5 10*3/uL 2.0-7.7 [facility] Anion gap in Serum or Plasma Ordered By: Nelson Ulloa on 03-22-2025 Anion gap [Moles/Vol] 11 mmol/L 5-15 [facility] Automated lymphocyte count a s percentage of total leukocytesOrdered By: Nelson Ulloa on 03-22-2025 Lymphocytes/100 WBC Auto (Unsp spec) 42.1 % High 19-41 [facility] BUN/creatinine ratioOrdered By: Nelson Ulloa on 03-22-2025 Urea nitrogen/Creatinine [Mass ratio] 11.9 mg/mg 10-20 [facility] Basophil percentageOrdered B y: Nelson Ulloa on 03-22-2025 Basophils/100 WBC (Bld) 0.5 % 0-1 [facility] Carbon dioxide, total [Moles /volume] in Central venous bloodOrdered By: Nelson Ulloa on 03-22-2025 CO2 [Moles/Vol] 23.8 mmol/L 21.0-32.0 [facility] Chloride assayOrdered By: Maranda Ulloa on 03-22-2025 Chloride [Moles/Vol] 105 mmol/L 98-108 [facility] Eosinophil percentageOrdered By: Nelson Ulloa on 03-22-2025 Eosinophils/100 WBC (Bld) 2.6 % 0-5 [facility] Erythrocyte distribution wid th ratioOrdered By: Nelson Ulloa on 03-22-2025 Erythrocyte distribution width (RBC) [Ratio] 15.2 % High 11.6-14.6 [facility] Erythrocyte distribution wid th standard deviationOrdered By: Nelson Ulloa on 03-22-2025 Erythrocyte distribution width (RBC) [Ratio] 47.3 fl High 35.1-43.9 [facility] Glomerular filtration rate ( GFR) estimation/1.73 sq m using serum, plasma, or whole bOrdered By: Nelson Ulloa on 03-22-2025 GFR/1.73 sq M.predicted among non-blacks MDRD (S/P/Bld) [Vol rate/Area] 103 mL/min/{1.73_m2} >60 [facility] Comment on above: mL/min/1.73m2 CKD-EP I Creatinine Equation (2020) Hematocrit Auto (Bld) [Volum e fraction]Ordered By: Nelson Ulloa on 03-22-2025 Hematocrit (Bld) [Volume fraction] 33.4 % Low 37-47 [facility] Hemoglobin measurementOrdere d By: Nelson Ulloa on 03-22-2025 Hemoglobin (Bld) [Mass/Vol] 11.1 g/dL Low 12.0-15.0 [facility] Immature granulocytes/100 WB C Auto (Bld)Ordered By: Nelson Ulloa on 03-22-2025 Immature granulocytes/100 WBC (Bld) 0.100 % 0.0-0.9 [facility] Comment on above: IG% - Immature Granu locytes (promyelocytes, myelocytes and metamyelocytes) > 1% indicates that a LEFT SHIFT is Present. MCV (mean corpuscular volume ) determinationOrdered By: Nelson Ulloa on 03-22-2025 MCV (RBC) [Entitic vol] 85.0 fL 81-99 [facility] Magnesium measurement (mass/ volume)Ordered By: Nelson Ulloa on 03-22-2025 Magnesium (Unsp spec) [Mass/Vol] 2.1 mg/dL 1.5-2.2 [facility] Mean corpuscular hemoglobin (MCH) determinationOrdered By: Nelson Ulloa on 03-22-2025 MCH (RBC) [Entitic mass] 28.2 pg 27.0-32.0 [facility] Mean corpuscular hemoglobin concentration (MCHC) determinationOrdered By: Nelson Ulloa on 03-22-2025 MCHC (RBC) [Mass/Vol] 33.2 g/dL 32-36 [facility] Mean platelet volume determi nationOrdered By: Nelson Ulloa on 03-22-2025 Platelet mean volume (Bld) [Entitic vol] 11.4 fL 6.2-12.0 [facility] Monocyte percentageOrdered B y: Nelson Ulloa on 03-22-2025 Monocytes/100 WBC (Bld) 6.6 % 0-10 [facility] Neutrophil percentageOrdered By: Nelson Ulloa on 03-22-2025 Neutrophils/100 WBC (Bld) 48.1 % 47-70 [facility] Nucleated red blood cell per centageOrdered By: Nelson Ulloa on 03-22-2025 Nucleated RBC/100 WBC (Bld) [Ratio] 0 % 0-5 [facility] PREGUon 03-22-2025 HCG ( test) Ql (U) Negative Normal [facility] Comment on above: Performed By: #### F E, A1C, ANEU, FT3, FT4, CMP, GFR, ADIFF, FERR, TSH, CBC #### [facility] [address] [place], [place] [address] test (u) int Invalid Interpretation Code [facility] Comment on above: Result Comment: HCG not detected. Very dilute urine specimens, as indicated by a low specific gravity, may not contain instruments sales representative levels of hCG. If is still suspected, a first morning urine specimen should be collected 48 hours later and tested. Performed By: #### F E, A1C, ANEU, FT3, FT4, CMP, GFR, ADIFF, FERR, TSH, CBC #### [facility] [address] [place], [place] [address] Platelet countOrdered By: Maranda Ulloa on 03-22-2025 Platelets (Bld) [#/Vol] 210 10*3/uL 150-450 [facility] Potassium measurement (mass/ volume)Ordered By: Nelson Ulloa on 03-22-2025 Potassium (Unsp spec) [Mass/Vol] 3.5 mmol/L 3.3-5.1 [facility] RBC Auto (Bld) [#/Vol]Ordere d By: Nelson Ulloa on 03-22-2025 RBC (Bld) [#/Vol] 3.93 10*6/uL Low 4.2-5.4 [facility] STREPAon 03-22-2025 Group A Strep PCR Not detected Normal Not Detected [facility] Comment on above: Performed By: #### S TREPA #### [facility] [address] [place], [place] [address] Group A Strep PCR Int See Interp Normal [facility] Comment on above: Result Comment: Clinical [...] infections. Performed By: #### S REILLY #### [facility] [address] [address] Serum beta-hCG test, qualita tiveOrdered By: Nelson Ulloa on 03-22-2025 Beta HCG ( test) Ql Negative [facility] Serum creatinine measurement (mass/volume)Ordered By: Nelson Ulloa on 03-22-2025 Creatinine [Mass/Vol] 0.79 mg/dL 0.70-1.20 [facility] Serum glucose measurement (m ass/volume)Ordered By: Nelson Ulloa on 03-22-2025 Glucose [Mass/Vol] 136 mg/dL High 70-99 [facility] Serum or plasma calcium jelani urement (mass/volume)Ordered By: Nelson Ulloa on 03-22-2025 Calcium [Mass/Vol] 9.0 mg/dL 7.6-11.0 [facility] Serum or plasma urea nitroge n measurement (mass/volume)Ordered By: Nelson Ulloa on 03-22-2025 Urea nitrogen [Mass/Vol] 9 mg/dL 4-19 [facility] Sodium levelOrdered By: Eugene Ulloa on 03-22-2025 Sodium [Moles/Vol] 139 mmol/L 133-145 [facility] UAon 03-22-2025 Color (U) Light Yellow Normal [facility] Comment on above: Performed By: #### F E, A1C, ANEU, FT3, FT4, CMP, GFR, ADIFF, FERR, TSH, CBC #### [facility] [address] [place] [id number] Glucose (U) [Mass/Vol] Negative Normal Negative [facility] Comment on above: Performed By: #### F E, A1C, ANEU, FT3, FT4, CMP, GFR, ADIFF, FERR, TSH, CBC #### [facility] [address] [address] Ketones Ql (U) Negative Normal Neg-Trace [facility] Comment on above: Performed By: #### F E, A1C, ANEU, FT3, FT4, CMP, GFR, ADIFF, FERR, TSH, CBC #### [facility] [address] [place] [address] UA Appear Clear Normal Clear [facility] Comment on above: Performed By: #### F E, A1C, ANEU, FT3, FT4, CMP, GFR, ADIFF, FERR, TSH, CBC #### [facility] [address] [address] UA Blood Moderate Abnormal Neg-Trace [facility] Comment on above: Performed By: #### F E, A1C, ANEU, FT3, FT4, CMP, GFR, ADIFF, FERR, TSH, CBC #### [facility] [address] [address] UA Leuk Est Trace Abnormal Negative [facility] Comment on above: Performed By: #### F E, A1C, ANEU, FT3, FT4, CMP, GFR, ADIFF, FERR, TSH, CBC #### [facility] [address] [address] UA Nitrite Negative Normal Negative [facility] Comment on above: Performed By: #### F E, A1C, ANEU, FT3, FT4, CMP, GFR, ADIFF, FERR, TSH, CBC #### [facility] [address] [place] [address] UA pH 6.5 Normal 5.0 - 8.0 [facility] Comment on above: Performed By: #### F E, A1C, ANEU, FT3, FT4, CMP, GFR, ADIFF, FERR, TSH, CBC #### [facility] [address] [place] [address] UA Protein Negative Normal Negative [facility] Comment on above: Performed By: #### F E, A1C, ANEU, FT3, FT4, CMP, GFR, ADIFF, FERR, TSH, CBC #### [facility] [address] [address] UA Spec Grav 1.025 Normal 1.006-1.029 [facility] Comment on above: Performed By: #### F E, A1C, ANEU, FT3, FT4, CMP, GFR, ADIFF, FERR, TSH, CBC #### [facility] [address] [place], [place] [address] UA Specimen Type Clean Catch Normal [facility] Comment on above: Performed By: #### F E, A1C, ANEU, FT3, FT4, CMP, GFR, ADIFF, FERR, TSH, CBC #### [facility] [address] [address] UA Urobilinogen 0.2 E.U./dL Normal 0.2-1.0 [facility] Comment on above: Performed By: #### F E, A1C, ANEU, FT3, FT4, CMP, GFR, ADIFF, FERR, TSH, CBC #### [facility] [address] [address] Urobilinogen (U) [Mass/Vol] Negative Normal Negative [facility] Comment on above: Performed By: #### F E, A1C, ANEU, FT3, FT4, CMP, GFR, ADIFF, FERR, TSH, CBC #### [facility] [address] [address] UAMICon 03-22-2025 UA Bacteria 1+ /hpf Abnormal Negative [facility] Comment on above: Performed By: #### F E, A1C, ANEU, FT3, FT4, CMP, GFR, ADIFF, FERR, TSH, CBC #### [facility] [address] [address] UA Hyal Cast 0-2 Abnormal [facility] Comment on above: Performed By: #### F E, A1C, ANEU, FT3, FT4, CMP, GFR, ADIFF, FERR, TSH, CBC #### [facility] [address] [address] UA Mucous 2+ /hpf Normal [facility] Comment on above: Performed By: #### F E, A1C, ANEU, FT3, FT4, CMP, GFR, ADIFF, FERR, TSH, CBC #### [facility] [address] [address] UA RBC 5-10 Abnormal 0-2 [facility] Comment on above: Performed By: #### F E, A1C, ANEU, FT3, FT4, CMP, GFR, ADIFF, FERR, TSH, CBC #### [facility] [address] [place], [place] [address] UA Squam Epithelial 10-20 Normal 0-20 [facility] Comment on above: Performed By: #### F E, A1C, ANEU, FT3, FT4, CMP, GFR, ADIFF, FERR, TSH, CBC #### [facility] [address] [place], [place] [address] UA WBC 25-50 Abnormal 0-5 [facility] Comment on above: Performed By: #### F E, A1C, ANEU, FT3, FT4, CMP, GFR, ADIFF, FERR, TSH, CBC #### [facility] [address] [place], [place] [address] White blood cell (WBC) count Ordered By: Nelson Ulloa on 03-22-2025 WBC (Bld) [#/Vol] 7.4 10*3/uL 4.4-11.0 [facility] ED NOTEon 03-10-2025 ED NOTE HNO ID: [id number] Author: SERENA PARSONS RN Service: ? Author Type: Registered Nurse Type: ED Notes Filed: 03/10/2025 01:43 Note Text: Pt name called in lobby at 0055, [address] [facility] XR WRIST MINIMUM 3 VIEWS RIG HTon [...] 02/18/2025 5:53:14 PM Ordering Provider: BERNADINE Rosario [facility] Brain/Head without Contrasto n 02-05-2025 Brain/Head without Contrast [facility] Imaging Services [address] [place] [address] Brain/Head without Contrast MR#: [id number] Acct: [id number] Name: BETSY MESA Rep #: [id number] : 1995 F 29 From: Emiliana johnson MD PCP: ARLINE CORADO Status: DEP ER Study: Brain/Head without Contrast Date of Exam: 01/27 Exam# [id number] Ordering Dr: Nelson Ulloa DO PROCEDURE: BRAIN/HEAD [...] CENTERCHAMDDIN1 CC: Nelson Ulloa DO; ARLINE CORADO Director Of Real Estate: Signed Normal [facility] Emergency Department Summary on 02-05-2025 Emergency Department Summary [facility] Medical Records Department [address] [place] [address] Emergency Department Summary 02/05/25 MR#: [id number] Acct: [id number] Name: BETSY MESA Rep #: [id number] : 1995 29 From: Nelson Ulloa DO [...] bleed and with this presents for evaluation [facility] Medical History Anxiety Paresthesias [...] are stab (more content not included)... Normal [facility] Absolute lymphocyte countOrd ered By: Oseas Aviles on 01-11-2025 Lymphocytes Auto (Unsp spec) [#/Vol] 2.39 10*3/uL 0.83-4.51 [facility] Absolute neutrophil countOrd ered By: Oseas Aviles on 01-11-2025 Neutrophils (Bld) [#/Vol] 3.8 10*3/uL 2.0-7.7 [facility] Anion gap in Serum or Plasma Ordered By: Oseas Aviles on 01-11-2025 Anion gap [Moles/Vol] 10 mmol/L 12-11 [facility] Automated lymphocyte count a s percentage of total leukocytesOrdered By: Oseas Aviles on 01-11-2025 Lymphocytes/100 WBC Auto (Unsp spec) 34.7 % [facility] BUN/creatinine ratioOrdered By: Oseas Aviles on 01-11-2025 Urea nitrogen/Creatinine [Mass ratio] 14.5 mg/mg 05-18 [facility] Basic Metabolic Profile (BMP )on 01-11-2025 BUN/CRE 14.5 RATIO Normal 05-18 [facility] Comment on above: Performed By: #### L 500.2500, L100.0100 ####[facility] [address] [place], [address] Calcium [Mass/Vol] 9.3 mg/dL Normal 7.6-11.0 [facility] Comment on above: Performed By: #### L 500.2500, L100.0100 ####[facility] [address] [place], [address] Chloride [Moles/Vol] 106 mmol/L Normal 98-108 [facility] Comment on above: Performed By: #### L 500.2500, L100.0100 ####[facility] [address] [place], [address] CO2 [Moles/Vol] 22.4 mmol/L Normal 21.0-32.0 [facility] Comment on above: Performed By: #### L 500.2500, L100.0100 ####[facility] [address] [place], [address] Creatinine [Mass/Vol] 0.73 mg/dL Normal 0.70-1.20 [facility] Comment on above: Performed By: #### L 500.2500, L100.0100 ####[facility] [address] [place], [address] ECRCL 149.34 ml/min Normal 50-250 [facility] Comment on above: Performed By: #### L 500.2500, L100.0100 ####[facility] [address] [place], [address] GAP 10 Normal 5-15 [facility] Comment on above: Performed By: #### L 500.2500, L100.0100 ####[facility] [address] [place], [address] GFR/1.73 sq M.predicted among non-blacks MDRD (S/P/Bld) [Vol rate/Area] 114 mL/min/{1.73_m2} Normal >60 [facility] Comment on above: Result Comment: mL/m in/1.73m2 CKD-EPI Creatinine Equation (2020) Performed By: #### L 500.2500, L100.0100 ####[facility] [address] [place], [address] Glucose [Mass/Vol] 133 mg/dL High 70-99 [facility] Comment on above: Performed By: #### L 500.2500, L100.0100 ####[facility] [address] [place], [address] Potassium [Moles/Vol] 3.9 mmol/L Normal 3.3-5.1 [facility] Comment on above: Performed By: #### L 500.2500, L100.0100 ####[facility] [address] [place], [address] Sodium [Moles/Vol] 138 mmol/L Normal 133-145 [facility] Comment on above: Performed By: #### L 500.2500, L100.0100 ####[facility] [address] [place], [address] Urea nitrogen [Mass/Vol] 11 mg/dL Normal 4-19 [facility] Comment on above: Performed By: #### L 500.2500, L100.0100 ####[facility] [address] [place], [address] Basophil percentageOrdered B y: Oseas Aviles on 01-11-2025 Basophils/100 WBC (Bld) 0.4 % 0-1 [facility] Brain/Head without Contrasto n 01-11-2025 Brain/Head without Contrast [facility] Imaging Services [address] [place] [address] Brain/Head without Contrast MR#: [id number] Acct: [id number] Name: BETSY MESA Rep #: [id number] : 1995 F 29 From: Laurita Talley PCP: Care Physician,No Primary Status: REG ER Study: Brain/Head without Contrast Date of Exam: 12/28 12/21 Exam# [id number] Ordering Dr: Oseas Aviles MD PROCEDURE: BRAIN/HEAD [...] IMPRESSION: No acute intracranial process. Reading Location: [facility] CC: Dr. Oseas Aviles MD; No Primary Care Physician Director Of Real Estate: Signed Normal [facility] CBC W/Diff, Automatedon 12-28 Absolute Lymph 2.39 X10 3/uL Normal 0.83-4.51 [facility] Comment on above: Performed By: #### L 500.2500, L100.0100 ####[facility] [address] [place], [address] Absolute Neut 3.8 X10 3/uL Normal 2.0-7.7 [facility] Comment on above: Performed By: #### L 500.2500, L100.0100 ####[facility] [address] [place], [address] Basophils/100 WBC (Bld) 0.4 % Normal 0-1 [facility] Comment on above: Performed By: #### L 500.2500, L100.0100 ####[facility] [address] [place], [address] Eosinophils/100 WBC (Bld) 2.6 % Normal 0-5 [facility] Comment on above: Performed By: #### L 500.2500, L100.0100 ####[facility] [address] [place], [address] Erythrocyte distribution width (RBC) [Ratio] 14.7 % High 11.6-14.6 [facility] Comment on above: Performed By: #### L 500.2500, L100.0100 ####[facility] [address] [place], [address] Hematocrit (Bld) [Volume fraction] 34.5 % Low 37-47 [facility] Comment on above: Performed By: #### L 500.2500, L100.0100 ####[facility] [address] [place], [address] Hemoglobin (Bld) [Mass/Vol] 11.1 g/dL Low 12.0-15.0 [facility] Comment on above: Performed By: #### L 500.2500, L100.0100 ####[facility] [address] [place], [address] IG% 0.300 Normal 0.0-0.9 [facility] Comment on above: Result Comment: IG% - Immature Granulocytes (promyelocytes, myelocytes and metamyelocytes) > 1% indicates that a LEFT SHIFT is Present. Performed By: #### L 500.2500, L100.0100 ####[facility] [address] [place], [address] Lymphocytes/100 WBC (Bld) 34.7 % Normal 19-41 [facility] Comment on above: Performed By: #### L 500.2500, L100.0100 ####[facility] [address] [place], [address] MCH (RBC) [Entitic mass] 27.5 pg Normal 27.0-32.0 [facility] Comment on above: Performed By: #### L 500.2500, L100.0100 ####[facility] [address] [place], [address] MCHC (RBC) [Mass/Vol] 32.2 g/dL Normal 32-36 [facility] Comment on above: Performed By: #### L 500.2500, L100.0100 ####[facility] [address] [place], [address] MCV (RBC) [Entitic vol] 85.6 fL Normal 81-99 [facility] Comment on above: Performed By: #### L 500.2500, L100.0100 ####[facility] [address] [place], [address] Monocytes/100 WBC (Bld) 7.3 % Normal 0-10 [facility] Comment on above: Performed By: #### L 500.2500, L100.0100 ####[facility] [address] [place], [address] Neutrophils/100 WBC (Bld) 54.7 % Normal 47-70 [facility] Comment on above: Performed By: #### L 500.2500, L100.0100 ####[facility] [address] [place], [address] Nucleated RBC (Bld) [#/Vol] 0 10*3/uL Normal 0-5 [facility] Comment on above: Performed By: #### L 500.2500, L100.0100 ####[facility] [address] [place], [address] Platelet mean volume (Bld) [Entitic vol] 10.6 fL Normal 6.2-12.0 [facility] Comment on above: Performed By: #### L 500.2500, L100.0100 ####[facility] [address] [place], [address] Platelets (Bld) [#/Vol] 208 10*3/uL Normal 150-450 [facility] Comment on above: Performed By: #### L 500.2500, L100.0100 ####[facility] [address] [place], [address] RBC (Bld) [#/Vol] 4.03 10*6/uL Low 4.2-5.4 [facility] Comment on above: Performed By: #### L 500.2500, L100.0100 ####[facility] [address] [place], [address] RDW SD 45.6 fl High 35.1-43.9 [facility] Comment on above: Performed By: #### L 500.2500, L100.0100 ####[facility] [address] [place], [address] WBC (Bld) [#/Vol] 6.9 10*3/uL Normal 4.4-11.0 [facility] Comment on above: Performed By: #### L 500.2500, L100.0100 ####[facility] [address] [place], [address] Carbon dioxide, total [Moles /volume] in Central venous bloodOrdered By: Oseas Aviles on 01-11-2025 CO2 [Moles/Vol] 22.4 mmol/L 21.0-32.0 [facility] Chloride assayOrdered By: Nnamdi Aviles on 01-11-2025 Chloride [Moles/Vol] 106 mmol/L 98-108 [facility] Emergency Department Summary on 01-11-2025 Emergency Department Summary [facility] Medical Records Department [address] [place] [address] Emergency Department Summary 01/11/25 MR#: [id number] Acct: [id number] Name: BETSY MESA Rep #: [id number] : 1995 29 From: Oseas Aviles MD [...] past with a negative workup done at [facility] 1 to 2 years ago. She denies any nausea, vomiting or diarrhea. No dysuria. No fever. She is on no blood thinners. Prior similar symptoms: Yes Recent Illness/Hospitalizatio n: No [facility] Medical History Anxiety Paresthesias [...] normal. NIH 0. No facial droop. Normal digital marketing manager strength. Fingertip to nose [id number] within normal limits. No drift. Const Vital [...] no scl (more content not included)... Normal [facility] Eosinophil percentageOrdered By: Oseas Aviles on 01-11-2025 Eosinophils/100 WBC (Bld) 2.6 % 0-5 [facility] Erythrocyte distribution wid th ratioOrdered By: Oseas Aviles on 01-11-2025 Erythrocyte distribution width (RBC) [Ratio] 14.7 % High 11.6-14.6 [facility] Erythrocyte distribution wid th standard deviationOrdered By: Oseas Aviles on 01-11-2025 Erythrocyte distribution width (RBC) [Ratio] 45.6 fl High 35.1-43.9 [facility] Glomerular filtration rate ( GFR) estimation/1.73 sq m using serum, plasma, or whole bOrdered By: Oseas Aviles on 01-11-2025 GFR/1.73 sq M.predicted among non-blacks MDRD (S/P/Bld) [Vol rate/Area] 114 mL/min/{1.73_m2} >60 [facility] Comment on above: mL/min/1.73m2 CKD-EP I Creatinine Equation (2020) Hematocrit Auto (Bld) [Volum e fraction]Ordered By: Oseas Aviles on 01-11-2025 Hematocrit (Bld) [Volume fraction] 34.5 % Low 37-47 [facility] Hemoglobin measurementOrdere d By: Oseas Aviles on 01-11-2025 Hemoglobin (Bld) [Mass/Vol] 11.1 g/dL Low 12.0-15.0 [facility] Immature granulocytes/100 WB C Auto (Bld)Ordered By: Oseas Aviles on 01-11-2025 Immature granulocytes/100 WBC (Bld) 0.300 % 0.0-0.9 [facility] Comment on above: IG% - Immature Granu locytes (promyelocytes, myelocytes and metamyelocytes) > 1% indicates that a LEFT SHIFT is Present. MCV (mean corpuscular volume ) determinationOrdered By: Oseas Aviles on 01-11-2025 MCV (RBC) [Entitic vol] 85.6 fL 81-99 [facility] Mean corpuscular hemoglobin (MCH) determinationOrdered By: Oseas Aviles on 01-11-2025 MCH (RBC) [Entitic mass] 27.5 pg 27.0-32.0 [facility] Mean corpuscular hemoglobin concentration (MCHC) determinationOrdered By: Oseas Aviles on 01-11-2025 MCHC (RBC) [Mass/Vol] 32.2 g/dL 32-36 [facility] Mean platelet volume determi nationOrdered By: Oseas Aviles on 01-11-2025 Platelet mean volume (Bld) [Entitic vol] 10.6 fL 6.2-12.0 [facility] Monocyte percentageOrdered B y: Oseas Aviles on 01-11-2025 Monocytes/100 WBC (Bld) 7.3 % 0-10 [facility] Neutrophil percentageOrdered By: Oseas Aviles on 01-11-2025 Neutrophils/100 WBC (Bld) 54.7 % 47-70 [facility] Nucleated red blood cell per centageOrdered By: Oseas Aviles on 01-11-2025 Nucleated RBC/100 WBC (Bld) [Ratio] 0 % 0-5 [facility] Platelet countOrdered By: Nnamdi Aviles on 01-11-2025 Platelets (Bld) [#/Vol] 208 10*3/uL 150-450 [facility] Potassium measurement (mass/ volume)Ordered By: Oseas Aviles on 01-11-2025 Potassium (Unsp spec) [Mass/Vol] 3.9 mmol/L 3.3-5.1 [facility] RBC Auto (Bld) [#/Vol]Ordere d By: Oseas Aviles on 01-11-2025 RBC (Bld) [#/Vol] 4.03 10*6/uL Low 4.2-5.4 [facility] Serum creatinine measurement (mass/volume)Ordered By: Oseas Aviles on 01-11-2025 Creatinine [Mass/Vol] 0.73 mg/dL 0.70-1.20 [facility] Serum glucose measurement (m ass/volume)Ordered By: Oseas Aviles on 01-11-2025 Glucose [Mass/Vol] 133 mg/dL High 70-99 [facility] Serum or plasma calcium jelani urement (mass/volume)Ordered By: Oseas Aviles on 01-11-2025 Calcium [Mass/Vol] 9.3 mg/dL 7.6-11.0 [facility] Serum or plasma urea nitroge n measurement (mass/volume)Ordered By: Oseas Aviles on 01-11-2025 Urea nitrogen [Mass/Vol] 11 mg/dL 4-19 [facility] Sodium levelOrdered By: Oseas Aviles on 01-11-2025 Sodium [Moles/Vol] 138 mmol/L 133-145 [facility] White blood cell (WBC) count Ordered By: Oseas Aviles on 01-11-2025 WBC (Bld) [#/Vol] 6.9 10*3/uL 4.4-11.0 [facility] A1Con 08-23-2024 Glucose [Mass/Vol] 134 mg/dL High <=114 [facility] Comment on above: Result Comment: Sarah mated Average Glucose calculated by equation ((28.7xA1C)-46.7) Estimated average glucose (eAG) is a calculated value from Hemoglobin A1C and is instruments sales representative of the average blood glucose level in the last 2-3 month period. Normal range: less than 114 mg/dL Performed By: #### F E, A1C, ANEU, FT3, FT4, CMP, GFR, ADIFF, FERR, TSH, CBC #### [facility] [address], [place] [address] HbA1c (Bld) [Mass fraction] 6.3 % Normal [facility] Comment on above: Result Comment: Inte rpretation [...] CMP, GFR, ADIFF, FERR, TSH, CBC #### [facility] [address] [address] .Auto Diffon 08-22-2024 Basophil, Absolute 0.0 10 3/mcL Normal 0.0-0.3 [facility] Comment on above: Performed By: #### F E, A1C, ANEU, FT3, FT4, CMP, GFR, ADIFF, FERR, TSH, CBC #### [facility] [address] [address] Basophils/100 WBC (Bld) 0.5 % Normal 0.0-2.5 [facility] Comment on above: Performed By: #### F E, A1C, ANEU, FT3, FT4, CMP, GFR, ADIFF, FERR, TSH, CBC #### [facility] [address] [address] Eosinophil, Absolute 0.1 10 3/mcL Normal 0.0-0.7 [facility] Comment on above: Performed By: #### F E, A1C, ANEU, FT3, FT4, CMP, GFR, ADIFF, FERR, TSH, CBC #### [facility] [address], [place] [address] Eosinophils/100 WBC (Bld) 2.2 % Normal 0.0-6.0 [facility] Comment on above: Performed By: #### F E, A1C, ANEU, FT3, FT4, CMP, GFR, ADIFF, FERR, TSH, CBC #### [facility] [address] [address] Lymphocyte, Absolute 2.3 10 3/mcL Normal 0.9-4.3 [facility] Comment on above: Performed By: #### F E, A1C, ANEU, FT3, FT4, CMP, GFR, ADIFF, FERR, TSH, CBC #### [facility] [address] [place], [place] [address] Lymphocytes/100 WBC (Bld) 40.9 % High 20.0-40.0 [facility] Comment on above: Performed By: #### F E, A1C, ANEU, FT3, FT4, CMP, GFR, ADIFF, FERR, TSH, CBC #### [facility] [address], [place] [address] Monocyte, Absolute 0.4 10 3/mcL Normal 0.1-1.4 [facility] Comment on above: Performed By: #### F E, A1C, ANEU, FT3, FT4, CMP, GFR, ADIFF, FERR, TSH, CBC #### [facility] [address], [place] [address] Monocytes/100 WBC (Bld) 7.2 % Normal 2.0-13.0 [facility] Comment on above: Performed By: #### F E, A1C, ANEU, FT3, FT4, CMP, GFR, ADIFF, FERR, TSH, CBC #### [facility] [address], [place] [address] Neutrophils/100 WBC (Bld) 49.2 % Low 50.0-75.0 [facility] Comment on above: Performed By: #### F E, A1C, ANEU, FT3, FT4, CMP, GFR, ADIFF, FERR, TSH, CBC #### [facility] [address], [place] [address] .GFRon 08-22-2024 GFR Non- 87 ml/min/1.73sqm Normal [facility] Comment on above: Result Comment: GFR Population [...] CMP, GFR, ADIFF, FERR, TSH, CBC #### [facility] [address], [place] [address] GFR 106 ml/min/1.73sqm Normal [facility] Comment on above: Result Comment: GFR Population [...] CMP, GFR, ADIFF, FERR, TSH, CBC #### [facility] [address] [address] .NEUABSon 08-22-2024 Neutrophil, Absolute 2.7 10 3/mcL Normal 2.3-8.1 [facility] Comment on above: Performed By: #### F E, A1C, ANEU, FT3, FT4, CMP, GFR, ADIFF, FERR, TSH, CBC #### [facility] [address] [address] CBCon 08-22-2024 Erythrocyte distribution width (RBC) [Ratio] 17.9 % High 11.5-15.5 [facility] Comment on above: Performed By: #### F E, A1C, ANEU, FT3, FT4, CMP, GFR, ADIFF, FERR, TSH, CBC #### [facility] [address] [address] Hematocrit (Bld) [Volume fraction] 34.1 % Normal 34.0-46.0 [facility] Comment on above: Performed By: #### F E, A1C, ANEU, FT3, FT4, CMP, GFR, ADIFF, FERR, TSH, CBC #### [facility] [address] [address] Hgb 10.7 G/dL Low 12.0-16.0 [facility] Comment on above: Performed By: #### F E, A1C, ANEU, FT3, FT4, CMP, GFR, ADIFF, FERR, TSH, CBC #### [facility] [address] [address] MCH (RBC) [Entitic mass] 25.3 pg Low 27.0-33.0 [facility] Comment on above: Performed By: #### F E, A1C, ANEU, FT3, FT4, CMP, GFR, ADIFF, FERR, TSH, CBC #### [facility] [address] [address] MCHC 31.4 G/dL Low 32.0-36.0 [facility] Comment on above: Performed By: #### F E, A1C, ANEU, FT3, FT4, CMP, GFR, ADIFF, FERR, TSH, CBC #### [facility] [address] [address] MCV (RBC) [Entitic vol] 80.4 fL Normal 80.0-99.0 [facility] Comment on above: Performed By: #### F E, A1C, ANEU, FT3, FT4, CMP, GFR, ADIFF, FERR, TSH, CBC #### [facility] [address] [address] Platelet 215 10 3/mcL Normal 150-450 [facility] Comment on above: Performed By: #### F E, A1C, ANEU, FT3, FT4, CMP, GFR, ADIFF, FERR, TSH, CBC #### [facility] [address] [address] Platelet mean volume (Bld) [Entitic vol] 8.8 fL Normal 6.6-10.5 [facility] Comment on above: Performed By: #### F E, A1C, ANEU, FT3, FT4, CMP, GFR, ADIFF, FERR, TSH, CBC #### [facility] [address] [address] RBC 4.24 10 6/mcL Normal 4.10-5.30 [facility] REHABILITATION Comment on above: Performed By: #### F E, A1C, ANEU, FT3, FT4, CMP, GFR, ADIFF, FERR, TSH, CBC #### [facility] [address] [address] WBC 5.6 10 3/mcL Normal 4.5-10.8 [facility] Comment on above: Performed By: #### F E, A1C, ANEU, FT3, FT4, CMP, GFR, ADIFF, FERR, TSH, CBC #### [facility] [address] [address] CMPon 08-22-2024 Albumin Level 3.8 G/dL Normal 3.4-5.0 [facility] Comment on above: Performed By: #### F E, A1C, ANEU, FT3, FT4, CMP, GFR, ADIFF, FERR, TSH, CBC #### [facility] [address] [address] Albumin/Globulin [Mass ratio] 1.0 {ratio} Low 1.1-1.8 [facility] Comment on above: Performed By: #### F E, A1C, ANEU, FT3, FT4, CMP, GFR, ADIFF, FERR, TSH, CBC #### [facility] [address] [address] ALP [Catalytic activity/Vol] 76 U/L Normal 45-117 [facility] Comment on above: Performed By: #### F E, A1C, ANEU, FT3, FT4, CMP, GFR, ADIFF, FERR, TSH, CBC #### [facility] [address] [address] ALT [Catalytic activity/Vol] 28 U/L Normal 12-78 [facility] Comment on above: Performed By: #### F E, A1C, ANEU, FT3, FT4, CMP, GFR, ADIFF, FERR, TSH, CBC #### [facility] [address] [place], [place] [address] AST [Catalytic activity/Vol] 17 U/L Normal 15-37 [facility] Comment on above: Performed By: #### F E, A1C, ANEU, FT3, FT4, CMP, GFR, ADIFF, FERR, TSH, CBC #### [facility] [address] [id number] Bili Total 0.4 mg/dL Normal 0.2-1.0 [facility] Comment on above: Result Comment: Use of this assay is not recommended for patients undergoing treatment with eltrombopag due to the potential for falsely elevated results. Performed By: #### F E, A1C, ANEU, FT3, FT4, CMP, GFR, ADIFF, FERR, TSH, CBC #### [facility] [address] [address] BUN/Creatinine Ratio 9.0 ratio Low 10.0-22.0 [facility] Comment on above: Performed By: #### F E, A1C, ANEU, FT3, FT4, CMP, GFR, ADIFF, FERR, TSH, CBC #### [facility] [address] [address] Calcium [Mass/Vol] 8.6 mg/dL Normal 8.5-10.1 [facility] Comment on above: Performed By: #### F E, A1C, ANEU, FT3, FT4, CMP, GFR, ADIFF, FERR, TSH, CBC #### [facility] [address] [id number] Chloride [Moles/Vol] 106 mmol/L Normal 98-107 [facility] Comment on above: Performed By: #### F E, A1C, ANEU, FT3, FT4, CMP, GFR, ADIFF, FERR, TSH, CBC #### [facility] [address] [address] CO2 [Moles/Vol] 26 mmol/L Normal 21-32 [facility] Comment on above: Performed By: #### F E, A1C, ANEU, FT3, FT4, CMP, GFR, ADIFF, FERR, TSH, CBC #### [facility] [address] [place], [place] [address] Creatinine [Mass/Vol] 0.78 mg/dL Normal 0.55-1.02 [facility] Comment on above: Result Comment: Test ing performed on Siemens Dimension Randlett analyzer using a modified kinetic Patricio technique. Performed By: #### F E, A1C, ANEU, FT3, FT4, CMP, GFR, ADIFF, FERR, TSH, CBC #### [facility] [address] [id number] Electrolyte Balance 4.0 mEq/L Normal 4.0-15.0 [facility] Comment on above: Performed By: #### F E, A1C, ANEU, FT3, FT4, CMP, GFR, ADIFF, FERR, TSH, CBC #### [facility] [address] [address] Globulin 3.7 G/dL Normal 2.5-4.6 [facility] Comment on above: Performed By: #### F E, A1C, ANEU, FT3, FT4, CMP, GFR, ADIFF, FERR, TSH, CBC #### [facility] [address] [address] Glucose [Mass/Vol] 109 mg/dL High 70-100 [facility] Comment on above: Performed By: #### F E, A1C, ANEU, FT3, FT4, CMP, GFR, ADIFF, FERR, TSH, CBC #### [facility] [address] [place], [place] [address] Potassium [Moles/Vol] 4.0 mmol/L Normal 3.5-5.1 [facility] Comment on above: Performed By: #### F E, A1C, ANEU, FT3, FT4, CMP, GFR, ADIFF, FERR, TSH, CBC #### [facility] [address] [id number] Sodium [Moles/Vol] 136 mmol/L Normal 136-145 [facility] Comment on above: Performed By: #### F E, A1C, ANEU, FT3, FT4, CMP, GFR, ADIFF, FERR, TSH, CBC #### [facility] [address] [place], [place] [address] Total Protein 7.5 G/dL Normal 6.0-8.3 [facility] Comment on above: Performed By: #### F E, A1C, ANEU, FT3, FT4, CMP, GFR, ADIFF, FERR, TSH, CBC #### [facility] [address] [place], [place] [address] Urea nitrogen [Mass/Vol] 7.0 mg/dL Normal 7.0-18.0 [facility] Comment on above: Performed By: #### F E, A1C, ANEU, FT3, FT4, CMP, GFR, ADIFF, FERR, TSH, CBC #### [facility] [address] [place], [place] [address] FEon 08-22-2024 Iron [Mass/Vol] 38 ug/dL Low 50-170 [facility] Comment on above: Performed By: #### F E, A1C, ANEU, FT3, FT4, CMP, GFR, ADIFF, FERR, TSH, CBC #### [facility] [address] [address] Michael 08-22-2024 Ferritin 3.8 [id number] Low 8.0-252.0 [facility] Comment on above: Performed By: #### F E, A1C, ANEU, FT3, FT4, CMP, GFR, ADIFF, FERR, TSH, CBC #### [facility] [address] [address] FT3on 08-22-2024 Free T3 [Mass/Vol] 2.66 pg/mL Normal 2.18-3.98 [facility] Comment on above: Performed By: #### F E, A1C, ANEU, FT3, FT4, CMP, GFR, ADIFF, FERR, TSH, CBC #### [facility] [address] [place], [place] [address] FT4on 08-22-2024 Free T4 [Mass/Vol] 0.99 ng/dL Normal 0.76-1.46 [facility] Comment on above: Performed By: #### F E, A1C, ANEU, FT3, FT4, CMP, GFR, ADIFF, FERR, TSH, CBC #### [facility] [address] [place], [place] [address] TSHon 08-22-2024 TSH 0.583 mIU/mL Normal 0.358-3.740 [facility] Comment on above: Performed By: #### F E, A1C, ANEU, FT3, FT4, CMP, GFR, ADIFF, FERR, TSH, CBC #### [facility] [address] [place], [place] [address] ALLIED HEALTHon 08-11-2024 [facility] HNO ID: [id number] Author: TIFFANY GRIMES RT(R) Service: Radiology Author Type: Technologist Type: [employer] [facility] Filed: 08/11/2024 03:38 Note Text: Summary: [...] PATIENT PRESENTS WITH AN 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 CBC W Auto Differential pane l (Bld)on 08-11-2024 Basophils (Bld) [#/Vol] 0.03 10*3/uL Normal <0.11 [facility] Comment on above: Order Comment: Speci men Type: BLOOD SPECIMEN Ordering Facility: [facility] Address: [address] [place] [address] Performed By: #### 5 7021-8 #### [facility] CLIA [id number] [address] [place] [address] [place] Basophils/100 WBC (Bld) 0.5 % Normal [facility] Comment on above: Order Comment: Speci men Type: BLOOD SPECIMEN Ordering Facility: [facility] Address: [address] [place] [address] Performed By: #### 5 7021-8 #### [facility] CLIA [id number] [address] [place] [address] [place] Differential cell count method Nom (Bld) Auto Normal [facility] Comment on above: Order Comment: Speci men Type: BLOOD SPECIMEN Ordering Facility: [facility] Address: [address] [place] [address] Performed By: #### 5 7021-8 #### [facility] CLIA [id number] [address] [place] [address] [place] Eosinophils (Bld) [#/Vol] 0.14 10*3/uL Normal <0.46 [facility] Comment on above: Order Comment: Speci men Type: BLOOD SPECIMEN Ordering Facility: [facility] Address: [address] [place] [address] Performed By: #### 5 7021-8 #### [facility] CLIA [id number] [address] [place] [address] [place] Eosinophils/100 WBC (Bld) 2.2 % Normal [facility] Comment on above: Order Comment: Speci men Type: BLOOD SPECIMEN Ordering Facility: [facility] Address: [address] [place] [address] Performed By: #### 5 7021-8 #### [facility] CLIA [id number] [address] [place] [address] [place] Erythrocyte distribution width (RBC) [Ratio] 15.6 % High 11.5-15.0 [facility] Comment on above: Order Comment: Speci men Type: BLOOD SPECIMEN Ordering Facility: [facility] Address: [address] [place] [address] Performed By: #### 5 7021-8 #### [facility] CLIA [id number] [address] [place] [address] [place] Hematocrit (Bld) [Volume fraction] 32.8 % Low 36.0-46.0 [facility] Comment on above: Order Comment: Speci men Type: BLOOD SPECIMEN Ordering Facility: [facility] Address: [address] [place] [address] Performed By: #### 5 7021-8 #### [facility] CLIA [id number] [address] [place] [address] [place] Hemoglobin (Bld) [Mass/Vol] 10.3 g/dL Low 11.5-15.5 [facility] Comment on above: Order Comment: Speci men Type: BLOOD SPECIMEN Ordering Facility: [facility] Address: [address] [place] [address] Performed By: #### 5 7021-8 #### [facility] CLIA [id number] [address] [place] [address] [place] Immature granulocytes (Bld) [#/Vol] 10*3/uL Normal <0.10 [facility] Comment on above: Order Comment: Speci men Type: BLOOD SPECIMEN Ordering Facility: [facility] Address: [address] [place] [address] Performed By: #### 5 7021-8 #### [facility] CLIA [id number] [address] [place] [address] [place] Immature granulocytes/100 WBC (Bld) 0.3 % Normal [facility] Comment on above: Order Comment: Speci men Type: BLOOD SPECIMEN Ordering Facility: [facility] Address: [address] [place] [address] Performed By: #### 5 7021-8 #### [facility] CLIA [id number] [address] [place] [address] [place] Lymphocytes (Bld) [#/Vol] 2.36 10*3/uL Normal 1.00-4.00 [facility] Comment on above: Order Comment: Speci men Type: BLOOD SPECIMEN Ordering Facility: [facility] Address: [address] [place] [address] Performed By: #### 5 7021-8 #### [facility] CLIA [id number] [address] [place] [address] STATES [facility] Lymphocytes/100 WBC (Bld) 36.6 % Normal [facility] Comment on above: Order Comment: Speci men Type: BLOOD SPECIMEN Ordering Facility: [facility] Address: [address] [place] [address] Performed By: #### 5 7021-8 #### [facility] CLIA [id number] [address] [place] [address] [place] MCH (RBC) [Entitic mass] 25.6 pg Low 26.0-34.0 [facility] Comment on above: Order Comment: Speci men Type: BLOOD SPECIMEN Ordering Facility: [facility] Address: [address] [place] [address] Performed By: #### 5 7021-8 #### [facility] CLIA [id number] [address] [place] [address] [place] MCHC (RBC) [Mass/Vol] 31.4 g/dL Normal 30.5-36.0 [facility] Comment on above: Order Comment: Speci men Type: BLOOD SPECIMEN Ordering Facility: [facility] Address: [address] [place] [address] Performed By: #### 5 7021-8 #### [facility] CLIA [id number] [address] [place] [address] [place] MCV (RBC) [Entitic vol] 81.4 fL Normal 80.0-100.0 [facility] Comment on above: Order Comment: Speci men Type: BLOOD SPECIMEN Ordering Facility: [facility] Address: [address] [place] [address] Performed By: #### 5 7021-8 #### [facility] CLIA [id number] [address] [place] [address] [place] Monocytes (Bld) [#/Vol] 0.46 10*3/uL Normal <0.87 [facility] Comment on above: Order Comment: Speci men Type: BLOOD SPECIMEN Ordering Facility: [facility] Address: [address] [id number] Performed By: #### 5 7021-8 #### [facility] CLIA [id number] [address] [place] [address] [place] Monocytes/100 WBC (Bld) 7.1 % Normal [facility] Comment on above: Order Comment: Speci men Type: BLOOD SPECIMEN Ordering Facility: [facility] Address: [address] [id number] Performed By: #### 5 7021-8 #### [facility] CLIA [id number] [address] [place] [address] [place] Neutrophils (Bld) [#/Vol] 3.44 10*3/uL Normal 1.45-7.50 [facility] Comment on above: Order Comment: Speci men Type: BLOOD SPECIMEN Ordering Facility: [facility] Address: [address] [place] [address] Performed By: #### 5 7021-8 #### [facility] CLIA [id number] [address] [place] [address] [place] Neutrophils/100 WBC (Bld) 53.3 % Normal [facility] Comment on above: Order Comment: Speci men Type: BLOOD SPECIMEN Ordering Facility: [facility] Address: [address] [place] [address] Performed By: #### 5 7021-8 #### [facility] CLIA [id number] [address] [place] [address] [place] Nucleated RBC (Bld) [#/Vol] 10*3/uL Normal <0.01 [facility] Comment on above: Order Comment: Speci men Type: BLOOD SPECIMEN Ordering Facility: [facility] Address: [address] [place] [address] Performed By: #### 5 7021-8 #### [facility] CLIA [id number] [address] [place] [address] [place] Nucleated RBC/100 WBC (Bld) [Ratio] 0.0 /[address] [facility] Comment on above: Order Comment: Speci men Type: BLOOD SPECIMEN Ordering Facility: [facility] Address: [address] [place] [address] Performed By: #### 5 7021-8 #### [facility] CLIA [id number] [address] [place] [address] [place] Platelet mean volume (Bld) [Entitic vol] 10.8 fL Normal 9.0-12.7 [facility] Comment on above: Order Comment: Speci men Type: BLOOD SPECIMEN Ordering Facility: [facility] Address: [address] [place] [address] Performed By: #### 5 7021-8 #### [facility] CLIA [id number] [address] [place] [address] [place] Platelets (Bld) [#/Vol] 220 10*3/uL Normal 150-400 [facility] Comment on above: Order Comment: Speci men Type: BLOOD SPECIMEN Ordering Facility: [facility] Address: [address] [place] [address] Performed By: #### 5 7021-8 #### [facility] CLIA [id number] [address] [place] [address] [place] RBC (Bld) [#/Vol] 4.03 10*6/uL Normal 3.90-5.20 [facility] Comment on above: Order Comment: Speci men Type: BLOOD SPECIMEN Ordering Facility: [facility] Address: [address] [place] [address] Performed By: #### 5 7021-8 #### [facility] CLIA [id number] [address] [place] [address] [place] WBC (Bld) [#/Vol] 6.45 10*3/uL Normal 3.70-11.00 [facility] Comment on above: Order Comment: Speci men Type: BLOOD SPECIMEN Ordering Facility: [facility] Address: [address], [place] [address] Performed By: #### 5 7021-8 #### [facility] CLIA [id number] [address] [place] [address] [place] CT ABD/PEL W IVCONon 025 CT ABD/PEL W IVCON * * *Final Report* * * DATE OF EXAM: Aug 11 2024 3:50AM [facility] 0530 - CT ABD/PEL W IVCON / [...] pulmonary embolism. 2. No acute abdominal abnormality Director Of Real Estate: [facility] Transcribe Date/Time: Aug 11 2024 3:59A Dictated by : MARCELO LAI MD This examination was interpreted and the report reviewed and electronically signed by: MARCELO LAI MD on Aug 11 2024 4:12AM EST [id number] Normal [facility] CTA CHEST (NON GATED) W IVCO N PEon 08-11-2024 CTA CHEST (NON GATED) W IVCON PE * * *Final Report* * * DATE OF EXAM: Aug 11 2024 3:50AM [facility] 0564 - CTA CHEST (NON GATED) W [...] pulmonary embolism. 2. No acute abdominal abnormality Director Of Real Estate: [facility] Transcribe Date/Time: Aug 11 2024 3:59A Dictated by : MARCELO LAI MD This examination was interpreted and the report reviewed and electronically signed by: MARCELO LAI MD on Aug 11 2024 4:12AM EST [id number] Normal [facility] Comprehensive metabolic 2000 panelon 08-11-2024 Albumin [Mass/Vol] 3.6 g/dL Normal 3.2-5.0 [facility] Comment on above: Order Comment: Jessica rojo Type: BLOOD SPECIMEN Ordering Facility: [facility] Address: [address] [place] [address] Performed By: #### 2 4323-8, 3040-3, HSTROP #### [facility] CLIA [id number] [address] [place] [address] [place] ALP [Catalytic activity/Vol] 83 U/L Normal 45-117 [facility] Comment on above: Order Comment: Speci men Type: BLOOD SPECIMEN Ordering Facility: [facility] Address: [address] [place] [address] Performed By: #### 2 4323-8, 3040-3, HSTROP #### [facility] CLIA [id number] [address] [place], [place] [address] [place] ALT [Catalytic activity/Vol] 21 U/L Normal 13-61 [facility] Comment on above: Order Comment: Speci men Type: BLOOD SPECIMEN Ordering Facility: [facility] Address: [address] [place] [address] Result Comment: Resu lts may be falsely depressed after the administration of Sulfasalazine and/or Sulfapyridine. Performed By: #### 2 4323-8, 0-3, HSTROP #### [facility] CLIA [id number] [address] [place], [place] [address] [place] Anion gap [Moles/Vol] 5 mmol/L Normal 5-16 [facility] Comment on above: Order Comment: Speci men Type: BLOOD SPECIMEN Ordering Facility: [facility] Address: [address] [place] [address] Performed By: #### 2 4323-8, 0-3, HSTROP #### [facility] CLIA [id number] [address] [place], [place] [address] [place] AST [Catalytic activity/Vol] 19 U/L Normal 8-34 [facility] Comment on above: Order Comment: Speci men Type: BLOOD SPECIMEN Ordering Facility: [facility] Address: [address] [place] [address] Result Comment: Resu lts may be falsely depressed after the administration of Sulfasalazine and/or Sulfapyridine. Performed By: #### 2 4323-8, 3040-3, HSTROP #### [facility] CLIA [id number] [address] [place], [place] [address] [place] Bilirubin [Mass/Vol] 0.2 mg/dL Normal 0.2-1.0 [facility] Comment on above: Order Comment: Speci men Type: BLOOD SPECIMEN Ordering Facility: [facility] Address: [address] [place] [address] Performed By: #### 2 4323-8, 3040-3, HSTROP #### [facility] CLIA [id number] [address] [place], [place] [address] [place] Calcium [Mass/Vol] 9.4 mg/dL Normal 8.5-10.5 [facility] Comment on above: Order Comment: Speci men Type: BLOOD SPECIMEN Ordering Facility: [facility] Address: [address] [place] [address] Performed By: #### 2 4323-8, 3040-3, HSTROP #### [facility] CLIA [id number] [address] [place], [place] [address] [place] Chloride [Moles/Vol] 106 mmol/L Normal 98-107 [facility] Comment on above: Order Comment: Speci men Type: BLOOD SPECIMEN Ordering Facility: [facility] Address: [address] [place] [address] Performed By: #### 2 4323-8, 3040-3, HSTROP #### [facility] CLIA [id number] [address] [place], [place] [address] [place] CO2 [Moles/Vol] 25 mmol/L Normal 21-32 [facility] Comment on above: Order Comment: Speci men Type: BLOOD SPECIMEN Ordering Facility: [facility] Address: [address] [place] [address] Performed By: #### 2 4323-8, 3040-3, HSTROP #### [facility] CLIA [id number] [address] [place], [place] [address] [place] Creatinine [Mass/Vol] 0.63 mg/dL Normal 0.51-0.95 [facility] Comment on above: Order Comment: Speci men Type: BLOOD SPECIMEN Ordering Facility: [facility] Address: [address] [place] [address] Result Comment: Temo ents receiving either N-Acetylcysteine (NAC) or Metamizole prior to venipuncture, may have falsely depressed results. Performed By: #### 2 4323-8, 3040-3, HSTROP #### [facility] CLIA [id number] [address] [place], [place] [address] [place] Creatinine and Glomerular filtration rate.predicted panel (S/P/Bld) 123 mL/min/1.73m??? Normal >=60 [facility] Comment on above: Order Comment: Jessica rojo Type: BLOOD SPECIMEN Ordering Facility: [facility] Address: [address] [place] [address] Result Comment: Sarah mated Glomerular Filtration Rate [...] By: #### 2 4323-8, 3040-3, HSTROP #### [facility] CLIA [id number] [address] [place] [address] [place] Glucose [Mass/Vol] 142 mg/dL High 70-100 [facility] Comment on above: Order Comment: Jessica rojo Type: BLOOD SPECIMEN Ordering Facility: [facility] Address: [address] [place] [address] Result Comment: The [place] [employer] (ADA) provides guidance for cutoff [...] Standards of Medical Care in Diabetes 2016, [employer]. Diabetes Care. 2016.39(Suppl 1). Results may be falsely elevated after the administration of Sulfapyridine. Results may be falsely depressed after the administration of Sulfasalazine. Performed By: #### 2 4323-8, 3040-3, HSTROP #### [facility] CLIA [id number] [address] [place], [place] [address] [place] Potassium [Moles/Vol] 3.7 mmol/L Normal 3.5-5.1 [facility] Comment on above: Order Comment: Speci men Type: BLOOD SPECIMEN Ordering Facility: [facility] Address: [address] [place] [address] Performed By: #### 2 4323-8, 0-3, HSTROP #### [facility] CLIA [id number] [address] [place] [address] [place] Protein [Mass/Vol] 7.2 g/dL Normal 6.0-8.5 [facility] Comment on above: Order Comment: Speci men Type: BLOOD SPECIMEN Ordering Facility: [facility] Address: [address] [place] [address] Performed By: #### 2 4323-8, 0-3, HSTROP #### [facility] CLIA [id number] [address] [place] [address] [place] Sodium [Moles/Vol] 136 mmol/L Normal 136-145 [facility] Comment on above: Order Comment: Speci men Type: BLOOD SPECIMEN Ordering Facility: [facility] Address: [address] [place] [address] Performed By: #### 2 4323-8, 0-3, HSTROP #### [facility] CLIA [id number] [address] [place], [place] [address] [place] Urea nitrogen [Mass/Vol] 10 mg/dL Normal 7-26 [facility] Comment on above: Order Comment: Speci men Type: BLOOD SPECIMEN Ordering Facility: [facility] Address: [address] [place] [address] Performed By: #### 2 4323-8, 3040-3, HSTROP #### [facility] CLIA [id number] Formerly named [facility] [place] [address] [place] ECG COMPLETEon 08-11-2024 ECG COMPLETE Ventricular Rate : 7 8 BPM Atrial Rate : 78 BPM P-R Interval : 198 ms QRS Duration : 84 ms Q-T Interval : 374 ms QTC Calculation(Bazett) : 426 ms Calculated P Revere : 47 degrees Calculated R Revere : 63 degrees Calculated T Revere : 47 degrees Normal sinus rhythm Normal ECG When compared with ECG of 05-Feb-2024 04:52, No significant change was found Confirmed by CECIL LANDEROS MD ([id number]) on 08/12/2024 2:10:44 PM NAME : BETSY MESA PID : [id number] : 1995 Gender : Female Race : Other ORD : [id number] Procedure Date : Aug 11 2024 02:58:03 Edit Date : Aug 12 2024 14:10:44 Diagnosis: Normal sinus rhythm Normal ECG When compared with ECG of 05-Feb-2024 04:52, No significant change was found Confirmed by CECIL LANDEROS MD ([id number]) on 08/12/2024 2:10:44 PM Test Reason : STAT Location : 0 : ED EDH02 Overread By : CECIL LANDEROS MD Edited By : CECIL LANDEROS MD Referred By : , Acquired by : [id number], [facility] ED PROV NOTEon 08-11-2024 ED PROV NOTE HNO ID: [id number] Author: RUBEN QUINTANA MD Service: ? Author [...] pancreatitis, pyelone (more content not included)... Normal [facility] Gastrointestinal pathogens p tyra HUNG+probe (Stl)on 08-11-2024 ADENOVIRUS F 40/41 DNA Not detected Normal Not Detecte d [facility] Comment on above: Order Comment: Jessica rojo Type: STOOL SPECIMEN Ordering Facility: [facility] Address: [address] [place] [address] Performed By: #### 7 9381-0 #### [facility] CLIA [id number] [facility] [place] [address] [place] ASTROVIRUS RNA Not detected Normal Not Detected [facility] Comment on above: Order Comment: Speci men Type: STOOL SPECIMEN Ordering Facility: [facility] Address: [address] [place] [address] Performed By: #### 7 9381-0 #### [facility] CLIA [id number] [address] [place] [address] [place] [facility] [place] C. cayetanensis DNA HUNG+probe Ql (Unsp spec) Not detected Normal Not Detected [facility] Comment on above: Order Comment: Speci men Type: STOOL SPECIMEN Ordering Facility: [facility] Address: [address] [place] [address] Performed By: #### 7 9381-0 #### [facility] CLIA [id number] [address] [place] [address] [place] Campylobacter sp DNA.diarrheagenic HUNG+probe Ql (Stl) Not detected Normal Not Detected [facility] Comment on above: Order Comment: Speci men Type: STOOL SPECIMEN Ordering Facility: [facility] Address: [address] [place] [address] Performed By: #### 7 9381-0 #### [facility] CLIA [id number] [address] [place] [address] [place] Cryptosporidium sp DNA HUNG+probe Ql (Unsp spec) Not detected Normal Not Detected [facility] Comment on above: Order Comment: Speci men Type: STOOL SPECIMEN Ordering Facility: [facility] Address: [address] [place] [address] Performed By: #### 7 9381-0 #### [facility] CLIA [id number] [address] [place] [address] [place] E. coli O157:H7 DNA HUNG+probe Ql (Unsp spec) Not applicable Normal Not detected [facility] Comment on above: Order Comment: Speci men Type: STOOL SPECIMEN Ordering Facility: [facility] Address: [address] [place] [address] Performed By: #### 7 9381-0 #### [facility] CLIA [id number] [address] [place] [address] [place] E. coli stx1+stx2 genes HUNG+probe Ql (Stl) Not detected Normal Not Detected [facility] Comment on above: Order Comment: Speci men Type: STOOL SPECIMEN Ordering Facility: [facility] Address: [address] [place] [address] Performed By: #### 7 9381-0 #### [facility] CLIA [id number] [address] [place] [address] [place] [facility] [place] E. histolytica DNA HUNG+probe Ql (Unsp spec) Not detected Normal Not Detected [facility] Comment on above: Order Comment: Speci men Type: STOOL SPECIMEN Ordering Facility: [facility] Address: [address] [place] [address] Performed By: #### 7 9381-0 #### [facility] CLIA [id number] [address] [place] [address] [place] ENTEROAGGREGATIVE E. COLI (EAEC) DNA Not detected Normal Not Detected [facility] Comment on above: Order Comment: Speci men Type: STOOL SPECIMEN Ordering Facility: [facility] Address: [address] [place] [address] Performed By: #### 7 9381-0 #### [facility] CLIA [id number] [address] [place] [address] [place] ENTEROPATHOGENIC E. COLI (EPEC) DNA Not detected Normal Not detected [facility] Comment on above: Order Comment: Speci men Type: STOOL SPECIMEN Ordering Facility: [facility] Address: [address] [place] [address] Performed By: #### 7 9381-0 #### [facility] CLIA [id number] [address] [place] [address] [place] ENTEROTOXIGENIC E. COLI (ETEC) DNA Not detected Normal Not Detected [facility] Comment on above: Order Comment: Speci men Type: STOOL SPECIMEN Ordering Facility: [facility] Address: [address] [place] [address] Performed By: #### 7 9381-0 #### [facility] CLIA [id number] [address] [place] [address] [place] G. lamblia DNA HUNG+probe Ql (Unsp spec) Not detected Normal Not Detected [facility] Comment on above: Order Comment: Speci men Type: STOOL SPECIMEN Ordering Facility: [facility] Address: [address] [place] [address] Performed By: #### 7 9381-0 #### [facility] CLIA [id number] [address] [place] [address] [place] [facility] NOROVIRUS GI/GII RNA Not detected Normal Not Detected [facility] Comment on above: Order Comment: Speci men Type: STOOL SPECIMEN Ordering Facility: [facility] Address: [address] [place] [address] Performed By: #### 7 9381-0 #### [facility] CLIA [id number] [address] [place] [address] [place] [facility] [place] PLESIOMONAS SHIGELLOIDES DNA Not detected Normal Not Detected [facility] Comment on above: Order Comment: Speci men Type: STOOL SPECIMEN Ordering Facility: [facility] Address: [address] [place] [address] Performed By: #### 7 9381-0 #### [facility] CLIA [id number] [address] [place] [address] [place] ROTAVIRUS A RNA Not detected Normal Not Detected [facility] Comment on above: Order Comment: Speci men Type: STOOL SPECIMEN Ordering Facility: [facility] Address: [address] [place] [address] Performed By: #### 7 9381-0 #### [facility] CLIA [id number] [address] [place] [address] [place] Salmonella sp DNA HUNG+probe Ql (Unsp spec) Not detected Normal Not Detected [facility] Comment on above: Order Comment: Speci men Type: STOOL SPECIMEN Ordering Facility: [facility] Address: [address] [place] [address] Performed By: #### 7 9381-0 #### [facility] CLIA [id number] [address] [place] [address] [place] SAPOVIRUS (GENOGROUPS I, II, IV, V) RNA Not detected Normal Not Detected [facility] Comment on above: Order Comment: Speci men Type: STOOL SPECIMEN Ordering Facility: [facility] Address: [address] [place] [address] Performed By: #### 7 9381-0 #### [facility] CLIA [id number] [address] [place] [address] [place] Shigella species+EIEC invasion plasmid antigen H ipaH gene HUNG+probe Ql (Stl) Not detected Normal Not Detected [facility] Comment on above: Order Comment: Speci men Type: STOOL SPECIMEN Ordering Facility: [facility] Address: [address] [place] [address] Performed By: #### 7 9381-0 #### [facility] CLIA [id number] [address] [place] [address] [place] V. cholerae DNA HUNG+probe Ql (Unsp spec) Not detected Normal Not Detected [facility] Comment on above: Order Comment: Speci men Type: STOOL SPECIMEN Ordering Facility: [facility] Address: [address] [place] [address] Performed By: #### 7 9381-0 #### [facility] CLIA [id number] [address] [place] [address] [place] Vibrio sp DNA HUNG+probe Nom (Unsp spec) Not detected Normal Not Detected [facility] Comment on above: Order Comment: Speci men Type: STOOL SPECIMEN Ordering Facility: [facility] Address: [address] [place] [address] Performed By: #### 7 9381-0 #### [facility] [place] [id number] [address] [place] [address] [place] Yersinia sp DNA HUNG+probe Nom (Unsp spec) Not detected Normal Not Detected [facility] Comment on above: Order Comment: Speci men Type: STOOL SPECIMEN Ordering Facility: [facility] Address: [address] [place] [address] Performed By: #### 7 9381-0 #### [facility] CLIA [id number] [address] [place], [place] [address] [place] HCG Preg Ur Qlon 08-11-2024 HCG ( test) Ql (U) Negative Normal Negative [facility] Comment on above: Order Comment: Specalesia rojo Type: URINE SPECIMEN Ordering Facility: [facility] Address: [address] [place] [address] Result Comment: This test is intended to aid in the early detection of . Very dilute urine samples, as indicated by a low specific gravity, may not contain instruments sales representative levels of hCG. This test [...] . Performed By: #### 2 106-3 #### [facility] CLIA [id number] [address] [place] [address] [place] HIGH SENSITIVITY TROPONIN Io n 08-11-2024 Tropinin I.cardiac panel High sensitivity method <2.5 Normal 0.0-34.0 [facility] Comment on above: Order Comment: Jessica rojo Type: BLOOD SPECIMEN Ordering Facility: [facility] Address: [address] [place] [address] Performed By: #### 2 4323-8, 3040-3, HSTROP #### [facility] CLIA [id number] [address] [place], [place] [address] [place] Lipase SerPl-cCncon 08-11-19 25 Lipase [Catalytic activity/Vol] 45 U/L Normal 12-60 [facility] Comment on above: Order Comment: Jessica [facility] Type: BLOOD SPECIMEN Ordering Facility: [facility] Address: [address] [place] [address] Performed By: #### 2 4323-8, 3040-3, HSTROP #### [facility] CLIA [id number] [address] [place] [address] Urinalysis complete panel (U )on 08-11-2024 Bacteria LM.HPF (Urine sed) [#/Area] None Seen Normal None Seen [facility] Comment on above: Order Comment: Speci men Type: URINE SPECIMEN Ordering Facility: [facility] Address: [address] [place] [address] Performed By: #### 2 4356-8 #### [facility] CLIA [id number] [address] [place] [address] [place] Bilirubin Ql (U) Negative Normal Negative [facility] Comment on above: Order Comment: Speci men Type: URINE SPECIMEN Ordering Facility: [facility] Address: [address] [place] [address] Performed By: #### 2 4356-8 #### [facility] CLIA [id number] [address] [place] [address] [place] CALCIUM OXALATE CRYSTALS (UA) Few Abnormal None Seen [facility] Comment on above: Order Comment: Speci men Type: URINE SPECIMEN Ordering Facility: [facility] Address: [address] [place] [address] Performed By: #### 2 4356-8 #### [facility] CLIA [id number] [address] [place] [address] [place] Clarity (Unsp spec) Clear Normal Clear [facility] Comment on above: Order Comment: Speci men Type: URINE SPECIMEN Ordering Facility: [facility] Address: [address] [place] [address] Performed By: #### 2 4356-8 #### [facility] CLIA [id number] [address] [place] [address] [place] Color (U) Yellow Normal Yellow [facility] Comment on above: Order Comment: Speci men Type: URINE SPECIMEN Ordering Facility: [facility] Address: [address] [place] [address] Performed By: #### 2 4356-8 #### [facility] CLIA [id number] [address] [place] [address] Epithelial cells LM.HPF (Urine sed) [#/Area] Few Normal [facility] Comment on above: Order Comment: Speci men Type: URINE SPECIMEN Ordering Facility: [facility] Address: [address] [place] [address] Performed By: #### 2 4356-8 #### [facility] CLIA [id number] [address] [place] [address] Glucose Test strip (U) [Mass/Vol] Negative Normal Negative [facility] Comment on above: Order Comment: Speci men Type: URINE SPECIMEN Ordering Facility: [facility] Address: [address] [place] [address] Performed By: #### 2 4356-8 #### [facility] CLIA [id number] [address] [place] [address] OF [facility] Hemoglobin Ql (U) 3+ Abnormal Negative [facility] Comment on above: Order Comment: Speci men Type: URINE SPECIMEN Ordering Facility: [facility] Address: [address] [place] [address] Performed By: #### 2 4356-8 #### [facility] CLIA [id number] [address] [place] [address] [place] Ketones Ql (U) Negative Normal Negative [facility] Comment on above: Order Comment: Speci men Type: URINE SPECIMEN Ordering Facility: [facility] Address: [address] [place] [address] Performed By: #### 2 4356-8 #### [facility] CLIA [id number] [address] [place] [address] [place] Leukocyte esterase Test strip Ql (U) Trace Abnormal Negative [facility] Comment on above: Order Comment: Speci men Type: URINE SPECIMEN Ordering Facility: [facility] Address: [address] [place] [address] Performed By: #### 2 4356-8 #### [facility] CLIA [id number] [address] [place] [address] [place] Nitrite Ql (U) Negative Normal Negative [facility] Comment on above: Order Comment: Speci men Type: URINE SPECIMEN Ordering Facility: [facility] Address: [address] [place] [address] Performed By: #### 2 4356-8 #### [facility] CLIA [id number] [address] [place] [address] [place] pH (U) 6.0 [pH] Normal 5.0-8.0 [facility] Comment on above: Order Comment: Speci men Type: URINE SPECIMEN Ordering Facility: [facility] Address: [address] [place] [address] Performed By: #### 2 4356-8 #### [facility] CLIA [id number] [address] [place] [address] [place] Protein (U) [Mass/Vol] Negative Normal Negative [facility] Comment on above: Order Comment: Speci men Type: URINE SPECIMEN Ordering Facility: [facility] Address: [address] [place] [address] Performed By: #### 2 4356-8 #### [facility] CLIA [id number] [address] [place] [address] [place] RBC LM.HPF (Urine sed) [#/Area] /[HPF] Abnormal 0-3 /HPF [facility] Comment on above: Order Comment: Speci men Type: URINE SPECIMEN Ordering Facility: [facility] Address: [address] [place] [address] Performed By: #### 2 4356-8 #### [facility] CLIA [id number] [address] [place] [address] [place] Specific gravity (U) [Rel density] 1.017 Normal 1.005-1.030 [facility] Comment on above: Order Comment: Speci men Type: URINE SPECIMEN Ordering Facility: [facility] Address: [address] [place] [address] Performed By: #### 2 4356-8 #### [facility] CLIA [id number] [address] [place] [address] Urobilinogen Ql (U) Negative Normal Negative [facility] Comment on above: Order Comment: Speci men Type: URINE SPECIMEN Ordering Facility: [facility] Address: [address] [place] [address] Performed By: #### 2 4356-8 #### [facility] CLIA [id number] [address] [place] [address] [place] WBC LM.HPF (Urine sed) [#/Area] /[HPF] Abnormal 0-5 /HPF [facility] Comment on above: Order Comment: Speci men Type: URINE SPECIMEN Ordering Facility: [facility] Address: [address] [place] [address] Performed By: #### 2 4356-8 #### [facility] CLIA [id number] [address] [place] [address] [place] Emergency Department Summary on 08-08-2024 Emergency Department Summary [facility] Medical Records Department [address] [place] [address] Emergency Department Summary 08/08/24 MR#: [id number] Acct: [id number] Name: BETSY MESA Rep #: [id number] : 1995 29 From: Nelson Ulloa DO [...] pain and therefore comes in for evaluation [facility] Medical History (Updated 08/08/24 @ [...] obvious physic (more content not included)... Normal [facility] Emergency Department Summary on 07-17-2024 Emergency Department Summary [facility] Medical Records Department [address] [place] [address] Emergency Department Summary 07/17/24 MR#: [id number] Acct: [id number] Name: BETSY MESA Rep #: [id number] : 1995 29 From: Oseas Aviles MD [...] water does help. Denies any other injury. [facility] Medical History Anxiety Paresthesias [...] area, is roughly 0.5 cm in a [place]. Patient will be given oral ibuprofen. She [...] DAILY amoxicillin (more content not included)... Normal [facility] Emergency Department Summary on 07-12-2024 Emergency Department Summary [facility] Medical Records Department [address] [place] [address] Emergency Department Summary 07/12/24 MR#: [id number] Acct: [id number] Name: BETSY MESA Rep #: [id number] : 1995 29 From: Abhinav Sofia DO [...] nausea or vomiting. Patient denies any rhinorrhea. [facility] Medical History Anxiety Paresthesias [...] Provider: Vishal (more content not included)... Normal [facility] M100.677on 07-12-2024 M100.677 Pending Rapid Strep A PCR A POSITIVE A Streptococcus group A Normal [facility] Comment on above: Performed By: #### M 100.678, M100.677 ####[facility] [address] [place], [address] M100.678on 07-12-2024 M100.678 Pending SARS-CoV-2 (COVID 19) Negative INFLUENZA A Negative INFLUENZA B Negative RSV PCR Negative Normal [facility] Comment on above: Performed By: #### M 100.678, M100.677 ####[facility] [address] [place], [address] Basic Metabolic Profile (BMP )on 06-16-2024 BUN/CRE 16.9 RATIO Normal 10-20 [facility] Comment on above: Performed By: #### L 501.9520, L100.0100, L500.2500, L501.5200 #### [facility] [address] [place], [address] CA,Total 9.0 mg/dL Normal 8.5-10.1 [facility] Comment on above: Performed By: #### L 501.9520, L100.0100, L500.2500, L501.5200 #### [facility] [address] [place], [address] Chloride [Moles/Vol] 108 mmol/L High 98-107 [facility] Comment on above: Performed By: #### L 501.9520, L100.0100, L500.2500, L501.5200 #### [facility] [address] [place], [address] CO2 [Moles/Vol] 28.0 mmol/L Normal 21.0-32.0 [facility] Comment on above: Performed By: #### L 501.9520, L100.0100, L500.2500, L501.5200 #### [facility] [address] [place], [address] Creatinine [Mass/Vol] 0.77 mg/dL Normal 0.55-1.02 [facility] Comment on above: Result Comment: The validity of the calculated GFR GFRAA in patients over 70 years has not been determined. Clinical correlation is essential. Performed By: #### L 501.9520, L100.0100, L500.2500, L501.5200 #### [facility] [address] [place], [address] ECRCL 138.63 ml/min Normal [facility] Comment on above: Performed By: #### L 501.9520, L100.0100, L500.2500, L501.5200 #### [facility] [address] [place], [address] EST GFR - AA 114 mL/min Normal >60 [facility] Comment on above: Result Comment: Afri can Iranian GFR Calc Performed By: #### L 501.9520, L100.0100, L500.2500, L501.5200 #### [facility] [address] [place], [address] GAP 3 Low 5-15 [facility] Comment on above: Performed By: #### L 501.9520, L100.0100, L500.2500, L501.5200 #### [facility] [address] [place], [address] GFR/1.73 sq M.predicted among non-blacks MDRD (S/P/Bld) [Vol rate/Area] 94 mL/min/{1.73_m2} Normal >60 [facility] Comment on above: Result Comment: Non- GFR Calc Performed By: #### L 501.9520, L100.0100, L500.2500, L501.5200 #### [facility] [address] [place], [address] Glucose [Mass/Vol] 104 mg/dL Normal 74-106 [facility] Comment on above: Result Comment: Fast ing Glucose result from 100 to 125 mg/dL suggests IMPAIRED HOMEOSTASIS per A.D.A. criteria. Performed By: #### L 501.9520, L100.0100, L500.2500, L501.5200 #### [facility] [address] [place], [address] Potassium [Moles/Vol] 3.8 mmol/L Normal 3.5-5.1 [facility] Comment on above: Performed By: #### L 501.9520, L100.0100, L500.2500, L501.5200 #### [facility] [address] [place], [address] Sodium [Moles/Vol] 139 mmol/L Normal 136-145 [facility] Comment on above: Performed By: #### L 501.9520, L100.0100, L500.2500, L501.5200 #### [facility] [address] [place], [address] Urea nitrogen [Mass/Vol] 13 mg/dL Normal 7-18 [facility] Comment on above: Performed By: #### L 501.9520, L100.0100, L500.2500, L501.5200 #### [facility] [address] [place], [address] CBC W/Diff, Automatedon 11 Absolute Lymph 3.38 X10 3/uL Normal 0.83-4.51 [facility] Comment on above: Performed By: #### L 501.9520, L100.0100, L500.2500, L501.5200 #### [facility] [address] [place], [address] Absolute Neut 4.1 X10 3/uL Normal 2.0-7.7 [facility] Comment on above: Performed By: #### L 501.9520, L100.0100, L500.2500, L501.5200 #### [facility] [address] [place], [address] Basophils/100 WBC (Bld) 0.5 % Normal 0-1 [facility] Comment on above: Performed By: #### L 501.9520, L100.0100, L500.2500, L501.5200 #### [facility] [address] [place], [address] Eosinophils/100 WBC (Bld) 2.2 % Normal 0-5 [facility] Comment on above: Performed By: #### L 501.9520, L100.0100, L500.2500, L501.5200 #### [facility] [address] [place], [address] Erythrocyte distribution width (RBC) [Ratio] 14.6 % Normal 11.6-14.6 [facility] Comment on above: Performed By: #### L 501.9520, L100.0100, L500.2500, L501.5200 #### [facility] [address] [place], [address] Hematocrit (Bld) [Volume fraction] 31.0 % Low 37-47 [facility] Comment on above: Performed By: #### L 501.9520, L100.0100, L500.2500, L501.5200 #### [facility] [address] [place], [address] Hemoglobin (Bld) [Mass/Vol] 9.8 g/dL Low 12.0-15.0 [facility] Comment on above: Performed By: #### L 501.9520, L100.0100, L500.2500, L501.5200 #### [facility] [address] [place], [address] IG% 0.100 Normal 0.0-0.9 [facility] Comment on above: Result Comment: IG% - Immature Granulocytes (promyelocytes, myelocytes and metamyelocytes) > 1% indicates that a LEFT SHIFT is Present. Performed By: #### L 501.9520, L100.0100, L500.2500, L501.5200 #### [facility] [address] [place], [address] Lymphocytes/100 WBC (Bld) 41.0 % Normal 19-41 [facility] Comment on above: Performed By: #### L 501.9520, L100.0100, L500.2500, L501.5200 #### [facility] [address] [place], [address] MCH (RBC) [Entitic mass] 26.9 pg Low 27.0-32.0 [facility] Comment on above: Performed By: #### L 501.9520, L100.0100, L500.2500, L501.5200 #### [facility] [address] [place], [address] MCHC (RBC) [Mass/Vol] 31.6 g/dL Low 32-36 [facility] Comment on above: Performed By: #### L 501.9520, L100.0100, L500.2500, L501.5200 #### [facility] [address] [place], [address] MCV (RBC) [Entitic vol] 85.2 fL Normal 81-99 [facility] Comment on above: Performed By: #### L 501.9520, L100.0100, L500.2500, L501.5200 #### [facility] [address] [place], [address] Monocytes/100 WBC (Bld) 6.5 % Normal 0-10 [facility] Comment on above: Performed By: #### L 501.9520, L100.0100, L500.2500, L501.5200 #### [facility] [address] [place], [address] Neutrophils/100 WBC (Bld) 49.7 % Normal 47-70 [facility] Comment on above: Performed By: #### L 501.9520, L100.0100, L500.2500, L501.5200 #### [facility] [address] [place], [address] Nucleated RBC (Bld) [#/Vol] 0 10*3/uL Normal 0-5 [facility] Comment on above: Performed By: #### L 501.9520, L100.0100, L500.2500, L501.5200 #### [facility] [address] [place], [address] Platelet mean volume (Bld) [Entitic vol] 10.4 fL Normal 6.2-12.0 [facility] Comment on above: Performed By: #### L 501.9520, L100.0100, L500.2500, L501.5200 #### [facility] [address] [place], [address] Platelets (Bld) [#/Vol] 257 10*3/uL Normal 150-450 [facility] Comment on above: Performed By: #### L 501.9520, L100.0100, L500.2500, L501.5200 #### [facility] [address] [place], [address] RBC (Bld) [#/Vol] 3.64 10*6/uL Low 4.2-5.4 [facility] Comment on above: Performed By: #### L 501.9520, L100.0100, L500.2500, L501.5200 #### [facility] [address] [place], [address] RDW SD 45.7 fl High 35.1-43.9 [facility] Comment on above: Performed By: #### L 501.9520, L100.0100, L500.2500, L501.5200 #### [facility] [address] [place], [address] WBC (Bld) [#/Vol] 8.3 10*3/uL Normal 4.4-11.0 [facility] Comment on above: Performed By: #### L 501.9520, L100.0100, L500.2500, L501.5200 #### [facility] [address] [place], [address] Emergency Department Summary on 06-16-2024 Emergency Department Summary [facility] Medical Records Department [address] [place] [address] Emergency Department Summary 06/16/24 MR#: [id number] Acct: [id number] Name: BETSY MESA Rep #: [id number] : 1995 29 From: Nelson Ulloa DO PCP: Care Physician,No Primary Status:[facility] ER Location: ED HPI History of Present [...] thyroid and therefore comes in for evaluation [facility] Medical History Anxiety Paresthesias [...] to ensure (more content not included)... Normal [facility] Magnesiumon 06-16-2024 Magnesium [Mass/Vol] 2.0 mg/dL Normal 1.6-2.6 [facility] Comment on above: Performed By: #### L 501.9520, L100.0100, L500.2500, L501.5200 #### [facility] [address] [place], [place], [address] Thyroid Stim Hormone (TSH)on 06-16-2024 TSH 0.884 uIU/mL Normal 0.358-3.740 [facility] Comment on above: Performed By: #### L 501.9520, L100.0100, L500.2500, L501.5200 #### [facility] [address] [place], [place], [address] B-HCG SerPl-aCncon 4 HCG.beta subunit Qn 2327.0 m[IU]/mL High <5.0 [facility] Comment on above: Order Comment: Speci men Type: TISSUE SPECIMEN Ordering Facility: [facility] Address: [facility] [place] [address] Result Comment: JALYN TITATIVE HCG NORMAL RANGES Weeks of Gestation (Weeks Since LMP) 3 Weeks (5.8-71.2 mIU/mL) 4 Weeks (9.5-750 mIU/mL) 5 Weeks (217-7138 mIU/mL) 6 Weeks (158-06954 mIU/mL) 7 Weeks (3697-961082 mIU/mL) 8 Weeks (42304-197292 mIU/mL) 9 Weeks (23794-418183 mIU/mL) 10 Weeks (50258-619576 mIU/mL) 12 Weeks (23047-577074 mIU/mL) Referenced to 4th [facility] of [facility] Performed By: #### S #### [facility] CLIA [id number] [address] [place] [address] [facility] CNOVon 05-06-2024 CNOV Office Visit (OBGYWM ) BETSY MESA ([id number]) 1995 F Date Time Provider Department 05/06/24 [...] Last night started bleeding and went to [facility] ED but long wait so went to [place] ED and they offered patient to go to [facility] or f/u in office. Patient was d/jose home to f/u today. Having waves of cramping nad passing clots, bleeding heavier than a period. Soaked through pads last night then it slowed and passed more clots. OB History T3 L3 SAB0 IAB0 Ectopic0 Multiple0 Live Births3 [facility] Specialist History LMP: 02/18/2024 (Within Days), Recent Age at Menarche: Age at First : Age at Menopause: [facility] Specialist History Comments: Sexual Activity: Yes; Male [...] discussed with the Patient or Patient's Authorized Slinger [employer]. As applicable, any other physician, advance practice provider, medical student, or other health professional student that will be observing or involved in the sensitive examination for educational or training purposes was discussed with the Patient or Authorized [employer]linger [employer]. The Patient or Authorized Slinger [employer] has agreed to proceed with the sensitive examination. (Sensitive examination includes inspection and/or palpation of the breasts, pelvis, prostate and anorectal regions). EXAM: Wt 212 lb (96.2kg) LMP 02/18/2024 GENERAL: in pain, female in mild distress ABDOMEN: soft, non-tender, and no masses PELVIC: external genitalia normal, normal Bartholin's glands, urethra, Standing Pine's glands, no vulvar lesions, no cervical lesions, [...] EMERGENT p (more content not included)... Normal [facility] SURGICAL PATHOLOGYon 024 CASE REPORT Normal [facility] Comment on above: Order Comment: Speci men Type: TISSUE SPECIMEN Ordering Facility: [facility] Address: [address] [place] [address] Result Comment: Surg ica Pathology Report Case: [id number] Authorizing Provider: Leela Currie MD Collected: 05/06/2024 04:56 PM Ordering Location: OB/Gynecology Received: 05/07/2024 12:08 PM Pathologist: Eli Bowen MD Specimen: Products of Conception Performed By: #### S #### [facility] CLIA [id number] [address] [place] [address] [place] CLINICAL HISTORY incomplete spontaneo us Normal [facility] Comment on above: Order Comment: Speci men Type: TISSUE SPECIMEN Ordering Facility: [facility] Address: [address] [place] [address] Performed By: #### S #### [facility] CLIA [id number] [address] FINAL DIAGNOSIS Normal [facility] Comment on above: Order Comment: Speci men Type: TISSUE SPECIMEN Ordering Facility: [facility] Address: [address] [place] [address] Result Comment: A. Products of conception: - Products of conception, to include immature chorionic villi. - Decidua and gestational endometrium. Performed By: #### S #### [facility] CLIA [id number] [address] [place] [address] FINAL PERFORMING LAB Normal [facility] Comment on above: Order Comment: Speci men Type: TISSUE SPECIMEN Ordering Facility: [facility] Address: [address] [place] [address] Result Comment: Diag nostic interpretation performed at [facility], [address] [place] [address] CLIA# [id number] [employer] Layup Line: Jeremiah Lemons M.D. Performed By: #### S #### [facility] CLIA [id number] [address] [place] [address] GROSS DESCRIPTION Normal [facility] Comment on above: Order Comment: Speci men Type: TISSUE SPECIMEN Ordering Facility: [facility] Address: [address] [place] [address] Result Comment: A. P roducts of Conception Received in formalin labeled products of conception are multiple irregularly-shaped, purple-steward, soft tissue fragments admixed with blood clot aggregating to 6 x 4.5 x 0.5 cm. There is possible chorionic villi. There are no vesicles or parts. Slinger [employer] sections are submitted in cassettes A1-A3. DAVINA May 07, 2024 3:45 PM Gross examination performed at [facility], [address] [place] [address] CLIA# [id number] Performed By: #### S #### [facility] CLIA [id number] [address] [place] [address] [place] PREGUon 05-05-2024 HCG ( test) Ql (U) Positive Normal [facility] Comment on above: Performed By: #### U A, PREGU, UAMIC #### [facility] [place] [address] [address] test (u) int Detected Invalid Interpretation Code [facility] Comment on above: Performed By: #### U A, PREGU, UAMIC #### [facility] [place] [address] [address] UAon 05-05-2024 Color (U) Straw Normal [facility] Comment on above: Performed By: #### U A, PREGU, UAMIC #### [facility] [place] [address] [address] Glucose (U) [Mass/Vol] Negative Normal Negative AU LTMAN MASSILLON Comment on above: Performed By: #### U A, PREGU, UAMIC #### [facility] [place] [address] [address] Ketones Ql (U) Negative Normal Neg-Trace [facility]LL[facility] Comment on above: Performed By: #### U A, PREGU, UAMIC #### [facility] [place] [address] [address] UA Appear Clear Normal [facility] Comment on above: Performed By: #### U A, PREGU, UAMIC #### [facility] [place] [address] [address] UA Blood Large Abnormal Neg-Trace [facility] Comment on above: Performed By: #### U A, PREGU, UAMIC #### [facility] [place] [address] [phone] UA Leuk Est Negative Normal Negative [facility] MASSILLON Comment on above: Performed By: #### U A, PREGU, UAMIC #### [facility] [place] [address] [phone] UA Nitrite Negative Normal Negative [facility] MAS[facility]LL[facility] Comment on above: Performed By: #### U A, PREGU, UAMIC #### [facility] [place] [address] [address] UA pH 5.5 Normal 5.0 - 8.0 [facility] Comment on above: Performed By: #### U A, PREGU, UAMIC #### [facility] [place] [address] [address] UA Protein Negative Normal Negative [facility] MASSILLON Comment on above: Performed By: #### U A, PREGU, UAMIC #### [facility] [place] [address] [address] UA Spec Grav <=1.005 Abnormal [facility]LL[facility] Comment on above: Performed By: #### U A, PREGU, UAMIC #### [facility] [place] [address] [address] UA Specimen Type Clean Catch Normal [facility] Comment on above: Performed By: #### U A, PREGU, UAMIC #### [facility] [place] [address] [address] UA Urobilinogen 0.2 E.U./dL Normal [facility] Comment on above: Performed By: #### U A, PREGU, UAMIC #### [facility] [place] [address] [address] Urobilinogen (U) [Mass/Vol] Negative Normal Neg-Trace [facility]LL[facility] Comment on above: Performed By: #### U A, PREGU, UAMIC #### [facility] [place] [address] [address] UAMICon 05-05-2024 UA Bacteria Negative Normal Negative [facility]LL[facility] Comment on above: Performed By: #### U A, PREGU, UAMIC #### [facility] [place] [address] [address] UA RBC 25-50 Abnormal 0-2 [facility] Comment on above: Performed By: #### U A, PREGU, UAMIC #### [facility] [place] [address] [address] UA Squam Epithelial 0-2 Normal 0-20 AULTM AN MASSILLON Comment on above: Performed By: #### U A, PREGU, UAMIC #### [facility] [place] [address] [place], [place] [address] UA WBC 0-2 Normal 0-5 [facility] DEY Comment on above: Performed By: #### U A, PREGU, UAMIC #### [facility] [address] [place], [place] [address] CNPNon 05-02-2024 CNPN Telephone (OBGYWM) BETSY MESA ([id number]) 1995 F Date Time Provider Department 05/02/24 [...] Status:Closed by IRMA LIN on 05/07/24 Normal [facility] B-HCG SerPl-aCncon 4 HCG.beta subunit Qn 4890.0 m[IU]/mL High <5.0 [facility] Comment on above: Order Comment: Speci men Type: TISSUE SPECIMEN Ordering Facility: [facility] Address: [address] [place] [address] Result Comment: JALYN TITATIVE HCG NORMAL RANGES Weeks of Gestation (Weeks Since LMP) 3 Weeks (5.8-71.2 mIU/mL) 4 Weeks (9.5-750 mIU/mL) 5 Weeks (217-7138 mIU/mL) 6 Weeks (158-65109 mIU/mL) 7 Weeks (3697-822945 mIU/mL) 8 Weeks (76552-259988 mIU/mL) 9 Weeks (33881-932190 mIU/mL) 10 Weeks (87824-206382 mIU/mL) 12 Weeks (87750-867883 mIU/mL) Referenced to 4th IS of [facility] Performed By: #### S #### [facility] CLIA [id number] [address] [place] [address] [place] CNOVon 05-01-2024 CNOV Office Visit (OBGYWM ) BETSY MESA ([id number]) 1995 F Date Time Provider Department 05/01/24 [...] she started spotting and cramping this morning. 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 Normal [facility] US Pelvison 05-01-2024 Indication viability, spotting Impression [...] Read By: Keshawn Moscoso M.D. MATERNAL MEDICINE [facility] Radiology Study observation (narrative) [facility] B-HCG SerPl-aCncon 4 HCG.beta subunit Qn 5643.0 m[IU]/mL High <5.0 [facility] Comment on above: Order Comment: Speci men Type: TISSUE SPECIMEN Ordering Facility: [facility] Address: [address] [place] [address] Result Comment: JALYN TITATIVE HCG NORMAL RANGES Weeks of Gestation (Weeks Since LMP) 3 Weeks (5.8-71.2 mIU/mL) 4 Weeks (9.5-750 mIU/mL) 5 Weeks (217-7138 mIU/mL) 6 Weeks (158-00278 mIU/mL) 7 Weeks (3697-619094 mIU/mL) 8 Weeks (46784-220454 mIU/mL) 9 Weeks (46241-447075 mIU/mL) 10 Weeks (50489-550673 mIU/mL) 12 Weeks (51353-515146 mIU/mL) Referenced to 4th IS of [facility] Performed By: #### S #### [facility] CLIA [id number] [address] [place] [address] [place] [address] [place] Bacteria Ur Culton 4 Bacteria identified Cx Nom (U) ORGANISM ID: 1 50,000-<100,000 CFU/ml Normal urogenital marilu Normal [facility] Comment on above: Performed By: #### S #### [facility] CLIA [id number] [address] [place] [address] [place] CBC panel Auto (Bld)on 04-28 Erythrocyte distribution width (RBC) [Ratio] 16.9 % High 11.5 - 15.0 % [facility] Hematocrit (Bld) [Volume fraction] 35.1 % Low 36.0 - 46.0 % [facility] Hemoglobin (Bld) [Mass/Vol] 11.8 g/dL 11.5 - 15.5 g/dL [facility] Interpretation and review of laboratory results Abnormal [facility] MCH (RBC) [Entitic mass] 28.4 pg 26.0 - 34.0 pg [facility] MCHC (RBC) [Mass/Vol] 33.6 g/dL 30.5 - 36.0 g/dL [facility] MCV (RBC) [Entitic vol] 84.6 fL 80.0 - 100.0 fL [facility] Nucleated RBC (Bld) [#/Vol] NINF [facility] Platelet mean volume (Bld) [Entitic vol] 11.4 fL 9.0 - 12.7 fL [facility] Platelets (Bld) [#/Vol] 176 10*3/uL [facility] RBC (Bld) [#/Vol] 4.15 10*6/uL 3.90 - 5.2 0 m/uL [facility] WBC (Bld) [#/Vol] 6.68 10*3/uL [facility] Erythrocyte distribution width (RBC) [Ratio] 16.9 % High 11.5-15.0 [facility] Comment on above: Order Comment: Speci men Type: TISSUE SPECIMEN Ordering Facility: [facility] Address: [address] [place] [address] Performed By: #### S #### [facility] CLIA [id number] [address] [place] [address] [place] Hematocrit (Bld) [Volume fraction] 35.1 % Low 36.0-46.0 [facility] Comment on above: Order Comment: Speci men Type: TISSUE SPECIMEN Ordering Facility: [facility] Address: [address] [place] [address] Performed By: #### S #### [facility] CLIA [id number] [address] [place] [address] [place] Hemoglobin (Bld) [Mass/Vol] 11.8 g/dL Normal 11.5-15.5 [facility] Comment on above: Order Comment: Speci men Type: TISSUE SPECIMEN Ordering Facility: [facility] Address: [address] [place] [address] Performed By: #### S #### [facility] [place] [id number] [address] [place] [address] [place] MCH (RBC) [Entitic mass] 28.4 pg Normal 26.0-34.0 [facility] Comment on above: Order Comment: Speci men Type: TISSUE SPECIMEN Ordering Facility: [facility] Address: [address] [place] [address] Performed By: #### S #### [facility] CLIA [id number] [address] [place] [address] [place] MCHC (RBC) [Mass/Vol] 33.6 g/dL Normal 30.5-36.0 [facility] Comment on above: Order Comment: Speci men Type: TISSUE SPECIMEN Ordering Facility: [facility] Address: [address] [place] [address] Performed By: #### S #### [facility] CLIA [id number] [address] [place] [address] [place] MCV (RBC) [Entitic vol] 84.6 fL Normal 80.0-100.0 [facility] Comment on above: Order Comment: Speci men Type: TISSUE SPECIMEN [facility] [facility] Address: [address] [place] [address] Performed By: #### S #### [facility] CLIA [id number] [id number] [address] [place] Nucleated RBC (Bld) [#/Vol] 10*3/uL Normal <0.01 [facility] Comment on above: Order Comment: Speci men Type: TISSUE SPECIMEN Ordering Facility: [facility] Address: [address] [place] [address] Performed By: #### S #### [facility] CLIA [id number] [address] [place] [address] [place] Platelet mean volume (Bld) [Entitic vol] 11.4 fL Normal 9.0-12.7 [facility] Comment on above: Order Comment: Speci men Type: TISSUE SPECIMEN Ordering Facility: [facility] Address: [address] [place] [address] Performed By: #### S #### [facility] CLIA [id number] [address] [place] [address] [place] Platelets (Bld) [#/Vol] 176 10*3/uL Normal 150-400 [facility] Comment on above: Order Comment: Speci men Type: TISSUE SPECIMEN Ordering Facility: [facility] Address: [address] [place] [address] Performed By: #### S #### [facility] CLIA [id number] [address] [place] [address] [place] RBC (Bld) [#/Vol] 4.15 10*6/uL Normal 3.90-5.20 [facility] Comment on above: Order Comment: Speci men Type: TISSUE SPECIMEN Ordering Facility: [facility] Address: [address] [place] [address] Performed By: #### S #### [facility] CLIA [id number] [address] [place] [address] [place] WBC (Bld) [#/Vol] 6.68 10*3/uL Normal 3.70-11.00 [facility] Comment on above: Order Comment: Speci men Type: TISSUE SPECIMEN Ordering Facility: [facility] Address: [address] [place] [address] Performed By: #### S #### [facility] CLIA [id number] [address] [place] [address] [place] [address] [place] CNOVon 04-28-2024 CNOV Office Visit (OBGYWM ) BETSY MESA ([id number]) 1995 F Date Time Provider Department 04/28/24 11:00 AM SUSHIL VILLANUEVA OBGYWM During your visit today, we recorded the following information about you: Blood pressure Weight Height Last Period 116/68 97.8 kg 1.784 m 02/18/24 Sushil Villanueva, ENERGY PROFESSIONAL.PROTECTION CHIEF [employer]ANT 04/28/2024 12:59 PM Signed [place] [...] L3 SAB0 IAB0 Ectopic0 Multiple0 Live Births3 [facility] Specialist History LMP: 02/18/2024 (Within Days), Having periods Age at Menarche: Age at First : Age at Menopause: N[facility] Specialist History Comments: Sexual Activity: Yes; Male [...] Assessed 04/28/2024 REVIEW OF SYSTEMS Expanded ROS: PROFESSOR OF GRAPHIC DESIGN: + amenorrhea Allergies and current medication updated:Yes SENSITIVE EXAM: The sensitive examination was discussed with the Patient or Patient's Authorized Slinger [employer]. As applicable, any other physician, advance practice provider, medical student, or other health professional student that will be observing or involved in the sensitive examination for educational or training purposes was discussed with the Patient or Authorized Slinger [employer]. The Patient or Authorized Slinger [employer] has agreed to proceed with the sensitive [...] - ICD9: V22.1, ICD10: Z34.91 - POC LIVESTOCK SALES REPRESENTATIVE ULTRASOUND - HCG QUANTITATIVE - COMPLETE BLOOD [...] Date Reviewed: 04/28/2024 Reviewed by: Sushil Villanueva APRN.PROTECTION CHIEF [employer] - Fully Assessed Reason for Visit: Missed menses [Other] Primary Visit Diagnosis: with uncertain viability, single or unspecified fetus [O36.80X0] Other Visit Diagnosis: with uncertain dates in first trimester [Z34.91] Order(s):POC LIVESTOCK SALES REPRESENTATIVE ULTRASOUND [0333413] Order #: [id number]. (more content not included)... Normal [facility] HbA1c (Bld)on 04-28-2024 Average glucose Estimated from glycated hemoglobin (Bld) [Mass/Vol] 120 mg/dL Normal [facility] Comment on above: Order Comment: Jessica rojo Type: BLOOD SPECIMEN Ordering Facility: [facility] Address: [address] [place] [address] Result Comment: eAG: (Estimated average glucose) is a calculated value from HgbA1c and is instruments sales representative of the average blood glucose level in the last 2-3 month period. Performed By: #### 5 5454-3 #### [facility] CLIA [id number] [address] [place], [place] [address] [address] [place] HbA1c (Bld) [Mass fraction] 5.8 % High 4.3-5.6 [facility] Comment on above: Order Comment: Jessica rojo Type: BLOOD SPECIMEN Ordering Facility: [facility] Address: [address] [place] [address] Result Comment: Amer [place] Diabetes Association guidelines indicate that patients with HgbA1c in the range 5.7-6.4% are at increased risk for development of diabetes, and intervention by lifestyle modification may be beneficial. HgbA1c greater or equal to 6.5% is considered diagnostic of diabetes. Performed By: #### 5 5454-3 #### [facility] CLIA [id number] [address] [place] [address] [place] POC LIVESTOCK SALES REPRESENTATIVE ULTRASOUNDon 04-28-20 24 Indication Viability; confirm cardiac [...] Read By: Sushil Villanueva NP MATERNAL MEDICINE [facility] Radiology Study observation (narrative) [facility] TYPE + SCREEN PRENATALon ABO O Normal [facility] Comment on above: Order Comment: Speci men Type: BLOOD SPECIMEN Ordering Facility: [facility] Address: [address] [place] [address] Performed By: #### T SPN #### [facility] CLIA [id number] [address] [place] [address] [place] Rh Nom (Bld) Positive Normal [facility] Comment on above: Order Comment: Speci men Type: BLOOD SPECIMEN Ordering Facility: [facility] Address: [address] [place] [address] Performed By: #### T SPN #### [facility] CLIA [id number] [address] [place] [address] [place] TYPE AND SCREEN EXPIRATION 05/01/2024 23:59 Normal [facility] Comment on above: Order Comment: Speci men Type: BLOOD SPECIMEN Ordering Facility: [facility] Address: [address] [place] [address] Performed By: #### T SPN #### [facility] CLIA [id number] [address] [place] [address] [id number] [place] [address] [place] [facility] A1Con 02-20-2024 Glucose [Mass/Vol] 137 mg/dL Normal [facility] ([place]) Comment on above: Result Comment: Sarah mated Average Glucose calculated by equation ((28.7xA1C)-46.7) Estimated average glucose (eAG) is a calculated value from Hemoglobin A1C and is instruments sales representative of the average blood glucose level in the last 2-3 month period. Normal range: less than 114 mg/dL Performed By: #### N GPCR1, CTPCR #### [place] [address] HbA1c (Bld) [Mass fraction] 6.4 % High 4.0-6.0 [facility] ([place]) Comment on above: Performed By: #### N GPCR1, CTPCR #### [place] [address] FT302-20-2024 Free T3 [Mass/Vol] 3.01 pg/mL Normal 2.30-4.20 [facility] ([place]) Comment on above: Performed By: #### F T4, FT3 #### [place] [address] FT4on 02-20-2024 Free T4 [Mass/Vol] 1.02 ng/dL Normal 0.89-1.76 [facility] ([place]) Comment on above: Result Comment: No te - New Reference Range in effect 20 Performed By: #### F T4, FT3 #### [place] [address] .Auto Diffon 02-19-2024 Basophil, Absolute 0.0 10 3/mcL Normal 0.0-0.3 [facility] ([place]) Comment on above: Performed By: #### T SH, CBC, A1C, FE, ANEU, FERR, ADIFF, CMP, GFR, MG #### [address] [address] Basophils/100 WBC (Bld) 0.4 % Normal 0.0-2.5 [facility] ([place] Comment on above: Performed By: #### T SH, CBC, A1C, FE, ANEU, FERR, ADIFF, CMP, GFR, MG #### [address] [address] Eosinophil, Absolute 0.2 10 3/mcL Normal 0.0-0.7 [facility] ([place]) Comment on above: Performed By: #### T SH, CBC, A1C, FE, ANEU, FERR, ADIFF, CMP, GFR, MG #### [address] [address] Eosinophils/100 WBC (Bld) 2.7 % Normal 0.0-6.0 [facility] ([place] Comment on above: Performed By: #### T SH, CBC, A1C, FE, ANEU, FERR, ADIFF, CMP, GFR, MG #### [address] [address] Lymphocyte, Absolute 2.1 10 3/mcL Normal 0.9-4.3 [facility] ([place]) Comment on above: Performed By: #### T SH, CBC, A1C, FE, ANEU, FERR, ADIFF, CMP, GFR, MG #### [address] [address] Lymphocytes/100 WBC (Bld) 30.6 % Normal 20.0-40.0 [facility] ([place] Comment on above: Performed By: #### T SH, CBC, A1C, FE, ANEU, FERR, ADIFF, CMP, GFR, MG #### [address] [address] Monocyte, Absolute 0.4 10 3/mcL Normal 0.1-1.4 [facility] ([place] Comment on above: Performed By: #### T SH, CBC, A1C, FE, ANEU, FERR, ADIFF, CMP, GFR, MG #### [address] [address] Monocytes/100 WBC (Bld) 5.7 % Normal 2.0-13.0 [facility] ([place] Comment on above: Performed By: #### T SH, CBC, A1C, FE, ANEU, FERR, ADIFF, CMP, GFR, MG #### [address] [address] Neutrophils/100 WBC (Bld) 60.6 % Normal 50.0-75.0 [facility] ([place] Comment on above: Performed By: #### T SH, CBC, A1C, FE, ANEU, FERR, ADIFF, CMP, GFR, MG #### [address] [address] .GFRon 02-19-2024 GFR >60 Normal [facility] ([place] Comment on above: Result Comment: GFR Population [...] Performed By: #### N GPCR1, CTPCR #### [address] [address] GFR Non- >60 Normal [facility] ([place] Comment on above: Result Comment: GFR Population [...] Performed By: #### N GPCR1, CTPCR #### [address] [address] .NEUABSon 02-19-2024 Neutrophil, Absolute 4.1 10 3/mcL Normal 2.3-8.1 [facility] ([place]) Comment on above: Performed By: #### T SH, CBC, A1C, FE, ANEU, FERR, ADIFF, CMP, GFR, MG #### [place] [address] CBCon 02-19-2024 Erythrocyte distribution width (RBC) [Ratio] 17.6 % High 11.5-15.5 [facility] ([place] Comment on above: Performed By: #### T SH, CBC, A1C, FE, ANEU, FERR, ADIFF, CMP, GFR, MG #### [place] [address] Hematocrit (Bld) [Volume fraction] 35.4 % Normal 34.0-46.0 [facility] ([place] Comment on above: Performed By: #### T SH, CBC, A1C, FE, ANEU, FERR, ADIFF, CMP, GFR, MG #### [place] [address] Hgb 11.3 G/dL Low 12.0-16.0 [facility] ([place] Comment on above: Performed By: #### T SH, CBC, A1C, FE, ANEU, FERR, ADIFF, CMP, GFR, MG #### [place] [address] MCH (RBC) [Entitic mass] 26.5 pg Low 27.0-33.0 [facility] ([place] Comment on above: Performed By: #### T SH, CBC, A1C, FE, ANEU, FERR, ADIFF, CMP, GFR, MG #### [place] [address] MCHC 32.0 G/dL Normal 32.0-36.0 [facility] ([place] Comment on above: Performed By: #### T SH, CBC, A1C, FE, ANEU, FERR, ADIFF, CMP, GFR, MG #### [place] [address] MCV (RBC) [Entitic vol] 82.9 fL Normal 80.0-99.0 [facility] ([place] Comment on above: Performed By: #### T SH, CBC, A1C, FE, ANEU, FERR, ADIFF, CMP, GFR, MG #### [place] [address] Platelet 205 10 3/mcL Normal 150-450 [facility] ([place] Comment on above: Performed By: #### T SH, CBC, A1C, FE, ANEU, FERR, ADIFF, CMP, GFR, MG #### [place] [address] Platelet mean volume (Bld) [Entitic vol] 9.5 fL Normal 6.6-10.5 [facility] ([place] Comment on above: Performed By: #### T SH, CBC, A1C, FE, ANEU, FERR, ADIFF, CMP, GFR, MG #### [place] [address] RBC 4.27 10 6/mcL Normal 4.10-5.30 [facility] ([place] Comment on above: Performed By: #### T SH, CBC, A1C, FE, ANEU, FERR, ADIFF, CMP, GFR, MG #### [place] [address] WBC 6.8 10 3/mcL Normal 4.5-10.8 [facility] ([place] Comment on above: Performed By: #### T SH, CBC, A1C, FE, ANEU, FERR, ADIFF, CMP, GFR, MG #### [place] [id number] CMPon 02-19-2024 Albumin Level 3.8 G/dL Normal 3.2-4.8 [facility] ([place] Comment on above: Performed By: #### N GPCR1, CTPCR #### [address] [address] Albumin/Globulin [Mass ratio] 1.2 {ratio} Normal 0.9-1.6 [facility] ([place] Comment on above: Performed By: #### N GPCR1, CTPCR #### [address] [address] ALP [Catalytic activity/Vol] 63 U/L Normal 38-126 [facility] ([place] Comment on above: Performed By: #### N GPCR1, CTPCR #### [address] [address] ALT [Catalytic activity/Vol] 17 U/L Normal 10-49 [facility] ([place] Comment on above: Performed By: #### N GPCR1, CTPCR #### [address] [address] AST [Catalytic activity/Vol] 14 U/L Normal 8-34 [facility] ([place] Comment on above: Performed By: #### N GPCR1, CTPCR #### [address] [address] Bili Total 0.30 mg/dL Normal 0.20-1.20 [facility] ([place] Comment on above: Result Comment: Use of this assay is not recommended for patients undergoing treatment with eltrombopag due to the potential for falsely elevated results. Performed By: #### N GPCR1, CTPCR #### [place] [id number] BUN/Creatinine Ratio 14.3 ratio Normal 10.0-22.0 [facility] ([place]) Comment on above: Performed By: #### N GPCR1, CTPCR #### [address] [address] Calcium [Mass/Vol] 9.9 mg/dL Normal 8.7-10.4 [facility] ([place]) Comment on above: Performed By: #### N GPCR1, CTPCR #### [address] [address] Chloride [Moles/Vol] 108 mmol/L Normal 98-110 [facility] ([place]) Comment on above: Performed By: #### N GPCR1, CTPCR #### [address] [address] CO2 [Moles/Vol] 28 mmol/L Normal 22-32 [facility] ([place] Comment on above: Performed By: #### N GPCR1, CTPCR #### [address] [address] Creatinine [Mass/Vol] 0.70 mg/dL Normal 0.50-1.20 [facility] ([place]) Comment on above: Performed By: #### N GPCR1, CTPCR #### [address] [address] Electrolyte Balance 3.0 mEq/L Low 4.0-15.0 [facility] ([place]) Comment on above: Performed By: #### N GPCR1, CTPCR #### [address] [address] Globulin 3.3 G/dL Normal 1.5-3.8 [facility] ([place]) Comment on above: Performed By: #### N GPCR1, CTPCR #### [address] [address] Glucose [Mass/Vol] 94 mg/dL Normal 70-110 [facility] ([place]) Comment on above: Performed By: #### N GPCR1, CTPCR #### [address] [address] Potassium [Moles/Vol] 4.3 mmol/L Normal 3.5-5.0 [facility] ([place]) Comment on above: Performed By: #### N GPCR1, CTPCR #### [address] [address] Sodium [Moles/Vol] 139 mmol/L Normal 136-145 [facility] ([place]) Comment on above: Performed By: #### N GPCR1, CTPCR #### [address] [address] Total Protein 7.1 G/dL Normal 5.7-8.2 [facility] ([place]) Comment on above: Result Comment: No te - New Reference Range in effect 20 Performed By: #### N GPCR1, CTPCR #### [place] [address] Urea nitrogen [Mass/Vol] 10.0 mg/dL Normal 8.0-22.0 [facility] ([place] Comment on above: Performed By: #### N GPCR1, CTPCR #### [place] [address] FEon 02-19-2024 Iron [Mass/Vol] 36 ug/dL Low 50-170 [facility] ([place] Comment on above: Performed By: #### T SH, CBC, A1C, FE, ANEU, FERR, ADIFF, CMP, GFR, MG #### [place] [address] Michael 02-19-2024 Ferritin [Mass/Vol] 2.7 ng/mL Low 8.0-252.0 [facility] ([place]) Comment on above: Performed By: #### T SH, CBC, A1C, FE, ANEU, FERR, ADIFF, CMP, GFR, MG #### [place] [address] LABORATORYOrdered By: SYSTEM SYSTEM on 02-19-2024 Albumin [...] (S/P/Bld) [Vol rate/Area] ml/min/1.73sqm Invalid Interpretation Code [employer]User Chemistry S Comment on above: Interpretive Data: [...] calculated value from Hemoglobin A1C and is instruments sales representative of the average blood glucose [...] 02-19-2024 Magnesium [Mass/Vol] 1.9 mg/dL Normal 1.6-2.4 [facility] ([place]) Comment on above: Performed By: #### N GPCR1, CTPCR #### [facility] [address] [place], [place] [address] TSHon 02-19-2024 TSH 0.121 mIU/mL Low 0.550-4.780 [facility] ([place]) Comment on above: Result Comment: No te - New Reference Range in effect 20 Performed By: #### N GPCR1, CTPCR #### [place] [address] CTPCRon 02-07-2024 C. trachomatis Interp Normal See CT Interp N [facility] ([place]) Comment on above: Result Comment: C. t rachomatis DNA not detected. Specimen is presumptive negative for C. trachomatis. A negative result does not preclude C. trachomatis infection because results depend on adequate specimen collection, absence of inhibitors, and sufficient DNA to be detected. See CT Interp N Performed By: #### N GPCR1, CTPCR #### [place] [address] C.trachomatis PCR Negative Normal Negative [facility] ([place]) Comment on above: Result Comment: Mole cular (PCR) assay performed on the Jose Sera 4800 system. Performed By: #### N GPCR1, CTPCR #### [place] [address] Chlam Source Cervix Normal [facility] ([place]) Comment on above: Performed By: #### N GPCR1, CTPCR #### [place] [address] [id number] 02-07-2024 GC PCR Source Cervix Normal [facility] ([place]) Comment on above: Performed By: #### N GPCR1, CTPCR #### [place] [address] N. gonorrhoeae (PCR) Negative Normal Negative [facility] ([place]) Comment on above: Result Comment: Mole cular (PCR) assay performed on the Jose Sera 4800 System. Performed By: #### N GPCR1, CTPCR #### [place] [address] N. gonorrhoeae Interp Normal See NG Interp N [facility] ([place]) Comment on above: Result Comment: N. g onorrhoeae DNA not detected. Specimen is presumptive negative for N. gonorrhoeae. A negative result does not preclude Neisseria gonorrhoeae infection because results depend on adequate specimen collection, absence of inhibitors, and sufficient DNA to be detected. See NG Interp N Performed By: #### N GPCR1, CTPCR #### [place] [address] CTPCRon 01-02-2024 C. trachomatis Interp Normal [facility] ([place]) Comment on above: Result Comment: C. t rachomatis DNA not detected. Specimen is presumptive negative for C. trachomatis. A negative result does not preclude C. trachomatis infection because results depend on adequate specimen collection, absence of inhibitors, and sufficient DNA to be detected. See CT Interp N Performed By: #### C TPCR #### [place] [address] C.trachomatis PCR Negative Normal Negative [facility] ([place] Comment on above: Result Comment: Mole cular (PCR) assay performed on the [employer] 4800 system. Performed By: #### C TPCR #### [address] [address] Chlam Source Vaginal Normal [facility] ([place]) Comment on above: Performed By: #### C TPCR #### [address] [address] [id number] 01-02-2024 GC PCR Source Vaginal Normal [facility] ([place] Comment on above: Performed By: #### N GPCR1, CTPCR #### [place] [address] N. gonorrhoeae (PCR) Negative Normal Negative [facility] ([place] Comment on above: Result Comment: Mole cular (PCR) assay performed on the [employer]era 4800 System. Performed By: #### N GPCR1, CTPCR #### [address] [address] N. gonorrhoeae Interp Normal See NG Interp N [facility] ([place] Comment on above: Result Comment: N. g onorrhoeae DNA not detected. Specimen is presumptive negative for N. gonorrhoeae. A negative result does not preclude Neisseria gonorrhoeae infection because results depend on adequate specimen collection, absence of inhibitors, and sufficient DNA to be detected. See NG Interp N Performed By: #### N GPCR1, CTPCR #### [place] [address] [place] [address] CASE MANAGEMon 12-11-2023 CASE MANAGEM HNO ID: [id number] Author: ALLY LEHMAN RN Service: ? Author [...] Primary Care Physician Name/Phone: Dr. Marcelo Isbell [phone] Additional Information: Patient being discharged home today with self-care. S.O. to transport. No TCC needs. SIGNATURE: Ally Lehman RN PATIENT NAME: B[place]y [place] DATE: December 11, 2023 TIME: 3:07 PM CONTACT #: [phone] [facility] 12-11-2023 [facility] HNO ID: [id number] Author: LORETA FROST MD Service: Hospital Medicine [...] call for appointment?: Yes Marcelo Isbell DO [phone] [address] PCP Requested Referral Follow-Up Appointment For right-sided facial numbness and headache When: In 1 week Patient/Parents to call for appointment?: Yes Cecil Ramirez MD [phone] [facility] [address] PCP Requested Referral Additional Provider to Provider Information: Treatment Team: Attending Provider: Loreta Frost MD Primary Service: [facility] Consulting: Cecil Ramirez MD Transitions of Care Critical Issues: SPECIALIST FOLLOW-UP: Neurology if numbness persists GIL MEDICATION CHANGES: Amlodipine 5 mg p.o. daily, metformin 500 mg p.o. every morning LABS AND PROCEDURES PENDING AT DISCHARGE: No pending results. FOLLOW-UP APPOINTMENTS ALREADY SCHEDULED WITH [facility]: No future appointments. ALLERGIES Allergen [...] Commonly k (more content not included)... Normal [facility] CONSULTon 12-11-2023 CONSULT HNO ID: [id number] Author: ALICIA ARELLANO MD Service: Neurology General [...] as needed for Pain.Disp: 30 tabletRfl: 0 Pdufwjfb-Hc-Wkw-[id number] ( VITAMIN) tabTake 1 tablet by mouth [...] exam revea (more content not included)... 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 EXAM: MRI - CONTRAST TYPE: GROUP II PERIPHERAL IV DATA: Inpatient - refer to LDA documentation RADIOLOGY DEPARTMENT: MR; Exam(s) Completed: Head: Routine Brain SIGNATURE: Charlie SundayRT(R) PATIENT NAME: Betsy [place] DATE: December 10, 2023 TIME: 9:13 PM Normal [facility] Basic metabolic 2000 panelon 12-10-2023 Anion gap [Moles/Vol] 15 mmol/L Normal 9-18 [facility] Comment on above: Order Comment: Speci men Type: BLOOD SPECIMEN Ordering Facility: [facility] Address: [address] [place] [address] Performed By: #### 2 4321-2, 25374-8 #### [facility] CLIA [id number] [address] [place] [address] [place] Calcium [Mass/Vol] 8.9 mg/dL Normal 8.5-10.2 [facility] Comment on above: Order Comment: Speci men Type: BLOOD SPECIMEN Ordering Facility: [facility] Address: [address] [place] [address] Performed By: #### 2 4321-2, 88071-6 #### [facility] CLIA [id number] [address] [place] [address] [place] Chloride [Moles/Vol] 106 mmol/L High 97-105 [facility] Comment on above: Order Comment: Speci men Type: BLOOD SPECIMEN Ordering Facility: [facility] Address: [address] [place] [address] Performed By: #### 2 4321-2, 12226-9 #### [facility] CLIA [id number] [address] [facility] CO2 [Moles/Vol] 19 mmol/L Low 22-30 [facility] Comment on above: Order Comment: Speci men Type: BLOOD SPECIMEN Ordering Facility: [facility] Address: [address] [place] [address] Performed By: #### 2 432-2, 55477-2 #### [facility] CLIA [id number] [address] [place] [address] [facility] Creatinine [Mass/Vol] 0.69 mg/dL Normal 0.58-0.96 [facility] Comment on above: Order Comment: Speci men Type: BLOOD SPECIMEN Ordering Facility: [facility] Address: [address] [place] [address] Performed By: #### 2 432-2, 66683-0 #### [facility] CLIA [id number] [address] [place] [address] Creatinine and Glomerular filtration rate.predicted panel (S/P/Bld) 121 mL/min/1.73m??? Normal >=60 [facility] Comment on above: Order Comment: Speci men Type: BLOOD SPECIMEN Ordering Facility: [facility] Address: [address] [place] [address] Result Comment: Sarah mated Glomerular Filtration Rate [...] actual GFR. Performed By: #### 2 4321-2, 66266-2 #### [employer] [facility] CLIA [id number] [address] [place] [address] [place] Glucose [Mass/Vol] 80 mg/dL Normal 74-99 [facility] Comment on above: Order Comment: Jessica rojo Type: BLOOD SPECIMEN Ordering Facility: [facility] Address: [address] [place] [address] Result Comment: The Iranian Diabetes Association (ADA) provides guidance for cutoff [...] Standards of Medical Care in Diabetes 2016, Iranian Diabetes Association. Diabetes Care. 2016.39(Suppl 1). Performed By: #### 2 4321-2, 75629-1 #### [facility] CLIA [id number] [address] [place] [address] [place] Potassium [Moles/Vol] 3.5 mmol/L Low 3.7-5.1 [facility] Comment on above: Order Comment: Jessica rojo Type: BLOOD SPECIMEN Ordering Facility: [facility] Address: [address] [place] [address] Performed By: #### 2 4321-2, 47127-9 #### [facility] CLIA [id number] [address] [place] [address] [place] Sodium [Moles/Vol] 140 mmol/L Normal 136-144 [facility] Comment on above: Order Comment: Jessica rojo Type: BLOOD SPECIMEN Ordering Facility: [facility] Address: [address] [place] [address] Performed By: #### 2 4321-2, 86095-4 #### [facility] CLIA [id number] [address] [place] [address] [place] Urea nitrogen [Mass/Vol] 8 mg/dL Normal 7-21 [facility] Comment on above: Order Comment: Speci men Type: BLOOD SPECIMEN Ordering Facility: [facility] Address: [facility] [place] [address] Performed By: #### 2 4321-2, 02098-2 #### [facility] CLIA [id number] [address] [place] [address] [place] CASE MGT INIT MALISSAon 2023 CASE MGT INIT ASSES HNO ID: [id number] Author: ALLY LEHMAN RN Service: ? Author Type: Registered Nurse Type: Care Mgt Initial Assessment Filed: 12/10/2023 15:00 Note Text: CARE MANAGEMENT: ASSESSMENT AND DISCHARGE PLAN SERVICE DATE: December 10, 2023 SERVICE TIME: 1457 PCP: Marcelo Isbell DO Primary Contact: Extended Emergency Contact Information Primary Emergency Contact: AryandenilsonCooper Mobile Relation: Significant other Admission Status: Observation Insurance Provider: [facility] MEDICAID OF [place] Discharge Planning requested by: Per Department Practice Potential Transition Plans No Services Indicated;Home Advance Directives Current Advance Directive: None [employer] 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 Very dilute urine samples, as indicated by a low specific gravity, may not contain instruments sales representative levels of hCG. This test [...] . Performed By: #### 2 106-3 #### [facility] CLIA [id number] [address] [facility] HISTORY PHYSICALon 4 HISTORY PHYSICAL HNO ID: [id number] Author: ARJUN DICKSON DO Service: Hospital Medicine Author Type: Physician Type: H&P Filed: 12/09/2023 23:52 Note Text: DEPARTMENT OF HOSPITAL MEDICINE HISTORY AND PHYSICAL EXAM SERVICE DATE: 12/09/2023 SERVICE TIME: 11:18 PM Primary Care Physician: No Pcp, ENERGY PROFESSIONAL NIGHT AND WEEKEND COVERAGE: [place] COVERAGE: From 7am - 7pm, please call sound After 7pm, please call cross cover pager #[phone] Subjective CHIEF COMPLAINT: Right facial numbness HPI: [...] for Pain., Disp: 30 tablet, Rfl: 0 Pjuruzem-Jp-Mpo-Fe-FA ( VITAMIN) tab, Take 1 tablet by [...] 12/09/23 17:36 (more content not included)... Normal [facility] HbA1c (Bld)on 12-10-2023 Average glucose Estimated from glycated hemoglobin (Bld) [Mass/Vol] 134 mg/dL Normal [facility] Comment on above: Order Comment: Jessica rojo Type: BLOOD SPECIMEN Ordering Facility: [facility] Address: [address] [place] [address] Result Comment: eAG: (Estimated average glucose) is a calculated value from HgbA1c and is instruments sales representative of the average blood glucose level in the last 2-3 month period. Performed By: #### 2 4321-2, 43407-5 #### [facility] CLIA [id number] [address] [place] [facility] HbA1c (Bld) [Mass fraction] 6.3 % High 4.3-5.6 [facility] Comment on above: Order Comment: Jessica rojo Type: BLOOD SPECIMEN Ordering Facility: [facility] Address: [address] [place] [address] Result Comment: Amer ican Diabetes Association guidelines indicate that patients with HgbA1c in the range 5.7-6.4% are at increased risk for development of diabetes, and intervention by lifestyle modification may be beneficial. HgbA1c greater or equal to 6.5% is considered diagnostic of diabetes. Performed By: #### 2 4321-2, 11797-7 #### [facility] CLIA [id number] [address] [place] [address] [place] Lipid 1996 panelon 4 Cholesterol [Mass/Vol] 135 mg/dL Normal <200 [facility] Comment on above: Order Comment: Jessica rojo Type: BLOOD SPECIMEN Ordering Facility: [facility] Address: [address] [place] [address] Result Comment: <200 mg/dL, Desirable 200-239 mg/dL, Borderline high >239 mg/dL, High Performed By: #### 2 4321-2, 05983-7 #### [facility] CLIA [id number] [address] Cholesterol in HDL [Mass/Vol] 39 mg/dL Low >39 [facility] Comment on above: Order Comment: Jessica darrel Type: BLOOD SPECIMEN Ordering Facility: [facility] Address: [address] [place] [address] Result Comment: 40-5 9 mg/dL, Acceptable >59 mg/dL, High: Negative risk factor for coronary heart disease <40 mg/dL, Low: Positive risk factor for coronary heart disease Performed By: #### 2 4321-2, 97231-0 #### [facility] CLIA [id number] [address] Cholesterol in LDL [Mass/Vol] 80 mg/dL Normal <100 [facility] Comment on above: Order Comment: Jessica [facility] Type: BLOOD SPECIMEN Ordering Facility: [facility] Address: [address] [place] [address] Result Comment: <100 mg/dL, Optimal 100-129 mg/dL, Near optimal/above optimal 130-159 mg/dL, Borderline high 160-189 mg/dL, High >189 mg/dL, Very high Secondary prevention optimal LDL Cholesterol levels are recommended to be < 70 mg/dL Performed By: #### 2 4321-2, 12721-7 #### [facility] CLIA [id number] [address] Cholesterol in LDL/Cholesterol in HDL [Mass ratio] 2.05 {ratio} Normal <2.54 [facility] Comment on above: Order Comment: Jessica [facility] Type: BLOOD SPECIMEN Ordering Facility: [facility] Address: [address] [place] [address] Result Comment: Gifty yepez: 1. National Cholesterol Education Program ATP III Guideline At-A-Glance Quick Desk Reference: National Heart, Lung, and Blood [place]. National Institutes of Health. 2001: NIH Publication No. 01-3305. 2. An International Atherosclerosis Society position paper: global recommendations for the management of dyslipidemia: executive summary, Atherosclerosis. 2014: 232(2):410-413. Performed By: #### 2 4321-2, 51894-2 #### [facility] CLIA [id number] [address] Cholesterol in VLDL [Mass/Vol] 16 mg/dL Normal <30 [facility] Comment on above: Order Comment: Speci men Type: BLOOD SPECIMEN Ordering Facility: [facility] Address: [address] [place] [address] Performed By: #### 2 4321-2, 56474-8 #### [facility] CLIA [id number] [address] [place] Cholesterol non HDL [Mass/Vol] 96 mg/dL Normal <130 [facility] Comment on above: Order Comment: Speci men Type: BLOOD SPECIMEN Ordering Facility: [facility] Address: [address] [place] [address] Result Comment: <130 mg/dL, Optimal 130-159 mg/dL, Near optimal/above optimal 160-189 mg/dL, Borderline high 190-219 mg/dL, High >219 mg/dL, Very high Secondary prevention optimal non HDL Cholesterol levels are recommended to be <100 mg/dL Performed By: #### 2 4320-2, 52444-4 #### [facility] CLIA [id number] [address] Cholesterol.total/Chol esterol in HDL [Mass ratio] 3.46 {ratio} Normal <5.10 [facility] Comment on above: Order Comment: Speci men Type: BLOOD SPECIMEN Ordering Facility: [facility] Address: [address] [place] [address] Performed By: #### 2 1-2, 77391-2 #### [facility] CLIA [id number] [address] FASTING TIME 8 hrs Normal [facility] Comment on above: Order Comment: Speci men Type: BLOOD SPECIMEN Ordering Facility: [facility] Address: [address] [place] [address] Performed By: #### 2 1-2, 97863-6 #### [facility] CLIA [id number] 1 [place] [address] [place] Triglyceride [Mass/Vol] 80 mg/dL Normal <150 [facility] Comment on above: Order Comment: Speci men Type: BLOOD SPECIMEN Ordering Facility: [facility] Address: [address] [place] [id number] Result Comment: <150 mg/dL, Normal 150-199 mg/dL, Borderline high 200-499 mg/dL, High >499 mg/dL, Very high Performed By: #### 2 4321-2, 79782-3 #### [facility] CLIA [id number] [address] [place] [id number] [place] MRI BRAIN WO/W IVCONon 12-09 MRI BRAIN WO/W IVCON * * *Final Report* * * DATE OF EXAM: Dec 10 2023 9:29PM [facility] 0295 - MRI BRAIN WO/W IVCON [...] clinical examination, and consider further evaluation accordingly. Director Of Real Estate: RADHA Transcribe Date/Time: Dec 10 2023 9:30P Dictated by : JOSUE HARRISON MD This examination was interpreted and the report reviewed and electronically signed by: JOSUE HARRISON MD on Dec 10 2023 9:38PM EST [id number] Normal [facility] THERAPY NTon 12-10-2023 THERAPY NT HNO ID: [id number] Author: DARRIUS GONZALEZ PT Service: Physical Therapy Author Type: Physical Therapist Type: Therapy (PT/OT/Speech/Resp) Filed: 12/10/2023 09:08 Note Text: PHYSICAL THERAPY MISSED VISIT SERVICE DATE: 12/10/2023 SERVICE TIME: 837 ROOM: [place] [address] Patient not seen due to Clinical Appropriateness (per OT no needs--only has facial numbness no mobility limitations--in room indep). Will D/C PT order SIGNATURE: Darrius Gonzalez PT PATIENT NAME: Betsy Mesa DATE: December 10, 2023 TIME: 9:07 AM Normal [facility] THERAPY NT HNO ID: [id number] Author: SASHA NY OTR/L Service: Occupational Therapy Author Type: Occupational Therapist Type: Therapy (PT/OT/Speech/Resp) Filed: 12/10/2023 08:42 Note Text: OCCUPATIONAL THERAPY MISSED VISIT SERVICE DATE: 12/10/2023 SERVICE TIME: ROOM: [place] [address] Patient not seen due to (Screened). Spoke with pt, identified no acute OT needs. Pt appears to be at her baseline for mobility and self-care tasks. Pt with family support at home, reports no concerns related to return home. Will sign off at this time. SIGNATURE: Sasha Ny OTR/Alina PATIENT NAME: Betsy Mesa DATE: December 10, 2023 TIME: 8:41 AM Normal [facility] Basic metabolic 2000 panelon 12-09-2023 Anion gap [Moles/Vol] 15 mmol/L Normal 9-18 [facility] Comment on above: Order Comment: Speci men Type: BLOOD SPECIMEN Ordering Facility: [facility] Address: [address] [place] [address] Performed By: #### 1 1523-9, 75276-6 #### [facility] CLIA [id number] [address] [place] [address] [place] Calcium [Mass/Vol] 9.1 mg/dL Normal 8.5-10.2 [facility] Comment on above: Order Comment: Speci men Type: BLOOD SPECIMEN Ordering Facility: [facility] Address: [address] [place] [address] Performed By: #### 1 49239, 25049-2 #### [facility] CLIA [id number] [address] [place] [address] [place] Chloride [Moles/Vol] 105 mmol/L Normal 97-105 [facility] Comment on above: Order Comment: Speci men Type: BLOOD SPECIMEN Ordering Facility: [facility] Address: [address] [place] [address] Performed By: #### 1 60239, 11148-4 #### [facility] CLIA [id number] [address] [place] [address] [place] CO2 [Moles/Vol] 22 mmol/L Normal 22-30 [facility] Comment on above: Order Comment: Speci men Type: BLOOD SPECIMEN Ordering Facility: [facility] Address: [address] [place] [address] Performed By: #### 1 3323-9, 25887-7 #### [facility] CLIA [id number] [address] [place] Creatinine [Mass/Vol] 0.76 mg/dL Normal 0.58-0.96 [facility] Comment on above: Order Comment: Jessica rojo Type: BLOOD SPECIMEN Ordering Facility: [facility] Address: [address] [place] [address] Performed By: #### 1 9123-9, 96790-9 #### [facility] CLIA [id number] [address] [place] Creatinine and Glomerular filtration rate.predicted panel (S/P/Bld) 110 mL/min/1.73m??? Normal >=60 [facility] Comment on above: Order Comment: Jessica rojo Type: BLOOD SPECIMEN Ordering Facility: [facility] Address: [address] [place] [address] Result Comment: Sarah mated Glomerular Filtration Rate [...] actual GFR. Performed By: #### 1 9123-9, 91051-1 #### [facility] CLIA [id number] [address] [place] Glucose [Mass/Vol] 110 mg/dL High 74-99 [facility] Comment on above: Order Comment: Jessica rojo Type: BLOOD SPECIMEN Ordering Facility: [facility] Address: [address] [place] [address] Result Comment: The [place] Diabetes Association (ADA) provides guidance for cutoff [...] Standards of Medical Care in Diabetes 2016, Iranian Diabetes Association. Diabetes Care. 2016.39(Suppl 1). Performed By: #### 1 9123-9, 70685-7 #### [facility] CLIA [id number] [address] [place] Potassium [Moles/Vol] 3.3 mmol/L Low 3.7-5.1 [facility] Comment on above: Order Comment: Speci men Type: BLOOD SPECIMEN Ordering Facility: [facility] Address: [facility] [address] [place] [address] Performed By: #### 1 9123-9, 09284-0 #### [facility] CLIA [id number] [address] [facility] Sodium [Moles/Vol] 142 mmol/L Normal 136-144 [facility] Comment on above: Order Comment: Speci men Type: BLOOD SPECIMEN Ordering Facility: [facility] Address: [address] [place] [address] Performed By: #### 1 9123-9, 38174-8 #### [facility] CLIA [id number] [address] [place] Urea nitrogen [Mass/Vol] 8 mg/dL Normal 7-21 [facility] Comment on above: Order Comment: Speci men Type: BLOOD SPECIMEN Ordering Facility: [facility] Address: [address] [place] [address] Performed By: #### 1 91239, 89056-9 #### [facility] CLIA [id number] [address] [place] CBC panel Auto (Bld)on 12-08 Erythrocyte distribution width (RBC) [Ratio] 15.3 % High 11.5-15.0 [facility] Comment on above: Order Comment: Speci men Type: BLOOD SPECIMEN Ordering Facility: [facility] Address: [address] [place] [address] Performed By: #### 5 8410-2 #### [facility] CLIA [id number] [address] [facility] Hematocrit (Bld) [Volume fraction] 34.9 % Low 36.0-46.0 [facility] Comment on above: Order Comment: Speci men Type: BLOOD SPECIMEN Ordering Facility: [facility] Address: [address] [place] [address] Performed By: #### 5 8410-2 #### [facility] CLIA [id number] [address] Hemoglobin (Bld) [Mass/Vol] 11.2 g/dL Low 11.5-15.5 [facility] Comment on above: Order Comment: Speci men Type: BLOOD SPECIMEN Ordering Facility: [facility] Address: [address] [place] [address] Performed By: #### 5 8410-2 #### [facility] CLIA [id number] [address] MCH (RBC) [Entitic mass] 27.3 pg Normal 26.0-34.0 [facility] Comment on above: Order Comment: Speci men Type: BLOOD SPECIMEN Ordering Facility: [facility] Address: [address] [place] [address] Performed By: #### 5 8410-2 #### [facility] CLIA [id number] [address] [place] [facility] MCHC (RBC) [Mass/Vol] 32.1 g/dL Normal 30.5-36.0 [facility] Comment on above: Order Comment: Speci men Type: BLOOD SPECIMEN Ordering Facility: [facility] Address: [address] [place] [address] Performed By: #### 5 8410-2 #### [facility] CLIA [id number] [address] MCV (RBC) [Entitic vol] 85.1 fL Normal 80.0-100.0 [facility] Comment on above: Order Comment: Speci men Type: BLOOD SPECIMEN Ordering Facility: [facility] Address: [address] [place] [address] Performed By: #### 5 8410-2 #### [facility] CLIA [id number] [address] [place] Nucleated RBC (Bld) [#/Vol] 10*3/uL Normal <0.01 [facility] Comment on above: Order Comment: Speci men Type: BLOOD SPECIMEN Ordering Facility: [facility] Address: [address] [place] [address] Performed By: #### 5 8410-2 #### [facility] CLIA [id number] [address] [place] Platelet mean volume (Bld) [Entitic vol] 11.2 fL Normal 9.0-12.7 [facility] Comment on above: Order Comment: Speci men Type: BLOOD SPECIMEN Ordering Facility: [facility] Address: [address] [place] [address] Performed By: #### 5 8410-2 #### [facility] CLIA [id number] [address] [place] Platelets (Bld) [#/Vol] 212 10*3/uL Normal 150-400 [facility] Comment on above: Order Comment: Speci men Type: BLOOD SPECIMEN Ordering Facility: [facility] Address: [address] [place] [address] Performed By: #### 5 8410-2 #### [facility] CLIA [id number] [address] [place] RBC (Bld) [#/Vol] 4.10 10*6/uL Normal 3.90-5.20 [facility] Comment on above: Order Comment: Speci men Type: BLOOD SPECIMEN Ordering Facility: [facility] Address: [address] [place] [address] Performed By: #### 5 8410-2 #### [facility] CLIA [id number] [address] [place] WBC (Bld) [#/Vol] 7.45 10*3/uL Normal 3.70-11.00 [facility] Comment on above: Order Comment: Speci men Type: BLOOD SPECIMEN Ordering Facility: [facility] Address: [place] [address] Performed By: #### 5 8410-2 #### [facility] CLIA [id number] [address] [place] CT BRAIN ATTACK WO IVCONon 0 12-09-2023 CT BRAIN ATTACK WO IVCON * * *Final Report* * * DATE OF EXAM: Dec 09 2023 5:45PM [facility] 0502 - CT BRAIN ATTACK WO IVCON [...] ROC MUNIZ on 12/09/2023 5:51PM . CR_1 Director Of Real Estate: RADHA Transcribe Date/Time: Dec 09 2023 6:00P Dictated by : JONATHAN WEISS MD This examination was interpreted and the report reviewed and electronically signed by: JONATHAN WEISS MD on Dec 09 2023 6:11PM EST [id number] CRITICAL!! Invalid Interpretation Code [facility] CTA HEAD W IVCONon 4 CTA HEAD W IVCON * * *Final Report* * * DATE OF EXAM: Dec 09 2023 5:51PM [facility] 0022 - CTA HEAD W IVCON / [...] proximal basilar fenestration, seen best on smaller daxcg-do-iynl focused images through the region. The basilar artery is patent and relatively small secondary to large posterior communicating arteries bilaterally. Both posterior cerebral arteries are widely patent. Distillery Worker General (topogram) images: No additional findings. IMPRESSION: 1. No evidence of significant carotid or vertebral artery stenosis 2. Proximal basilar fenestration noted 3. No evidence of an acute intracranial large vessel occlusion Arterial blood flow was measured to detect acute large vessel occlusion by computer aided detection software: Not Performed. Concordance between software and imaging review: Not Applicable. Director Of Real Estate: RADHA Transcribe Date/Time: Dec 09 2023 6:19P Dictated by : JONATHAN WEISS MD This examination was interpreted and the report reviewed and electronically signed by: JONATHAN WEISS MD on Dec 09 2023 6:32PM EST [id number] Normal [facility] CTA NECK W IVCONon 4 CTA NECK W IVCON * * *Final Report* * * DATE OF EXAM: Dec 09 2023 5:51PM [facility] 0024 - CTA NECK W IVCON / [...] proximal basilar fenestration, seen best on smaller clgpd-cb-dbfa focused images through the region. The basilar artery is patent and relatively small secondary to large posterior communicating arteries bilaterally. Both posterior cerebral arteries are widely patent. Distillery Worker General (topogram) images: No additional findings. IMPRESSION: 1. No evidence of significant carotid or vertebral artery stenosis 2. Proximal basilar fenestration noted 3. No evidence of an acute intracranial large vessel occlusion Arterial blood flow was measured to detect acute large vessel occlusion by computer aided detection software: Not Performed. Concordance between software and imaging review: Not Applicable. Director Of Real Estate: PSCB Transcribe Date/Time: Dec 09 2023 6:19P Dictated by : JONATHAN WEISS MD This examination was interpreted and the report reviewed and electronically signed by: JONATHAN WEISS MD on Dec 09 2023 6:32PM EST [id number] Normal [facility] ED NOTEon 12-09-2023 ED NOTE HNO ID: [id number] Author: JUAN A FREEMAN RN Service: Emergency Medicine Author Type: Registered Nurse Type: ED Notes Filed: 12/09/2023 22:00 Note Text: Report called to receiving RN on 9100 Normal [facility] ED NOTE HNO ID: [id number] Author: JUAN A FREEMAN RN Service: Emergency Medicine Author Type: Registered Nurse Type: ED Notes Filed: 12/09/2023 22:01 Note Text: Performed dysphagia screening on pt, pt passed screening. Pt provided with applesauce and crackers x2. Pt has possessions and call light within reach. Pt updated on status of admit and bed being ready. Pt understanding at this time. Normal [facility] ED NOTE HNO ID: [id number] Author: MAGALIS PIERCE RN Service: Emergency Medicine Author Type: Registered Nurse Type: ED Notes Filed: 12/09/2023 17:36 Note Text: Blood sugar 116 Normal [facility] ED NOTE HNO ID: [id number] Author: DOM ALCOCER RN Service: ? Author Type: Registered Nurse Type: ED Notes Filed: 12/09/2023 16:54 Note Text: No answer for triage x1 Normal [facility] ED PROV NOTEon 12-09-2023 ED PROV NOTE HNO ID: [id number] Author: ROC MUNIZ MD Service: Emergency Medicine [...] is from kissing. 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: Patient deaf interpreter used: No PAST MEDICAL HISTORY Diagnosis Date [...] Row Nam (more content not included)... Normal [facility] ED PROV NOTE HNO ID: [id number] Author: ROC MNUIZ MD Service: Emergency Medicine Author Type: Physician [...] of her upper or lower extremities. Normal neasrk-zm-kgbl. Visual french normal. Critical Care I spent a total of 40 minutes of critical care time in the evaluation and management of this patient. 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 The patient received Consultation by Stroke neurology during the time that critical care was provided.I discussed the plan of care with the RESIDENT and agree with the findings documented. Critical care time excludes separately billed procedures. MD TOMAS Buenrostro JNO J 12/09/23 2329 Normal [facility] ED Triage Noteon 12-09-2023 ED Triage Note HNO ID: [id number] Author: SHERIN GUERRA APRN.[employer] Service: ? Author Type: Nurse Practitioner Type: [...] encounter. EKG Directly roomed SIGNATURE: Sherin Guerra APRN.[employer] Normal [facility] EKGon 12-09-2023 Electrocardiogram Ventricular Rate : 9 9 BPM Atrial Rate : 99 BPM P-R Interval : 186 ms QRS Duration : 80 ms Q-T Interval : 342 ms QTC Calculation(Bazett) : 438 ms Calculated P Revere : 45 degrees Calculated R Revere : 55 degrees Calculated T Revere : 27 degrees NORMAL SINUS RHYTHM NONSPECIFIC T WAVE ABNORMALITY NO PREVIOUS ECGS AVAILABLE Confirmed by MD MUNIZ JNO ([id number]) on 12/09/2023 6:44:50 PM NAME : BETSY MESA PID : [id number] : 1995 Gender : Female Race : Other ORD : Procedure Date : Dec 09 2023 17:06:20 Edit Date : Dec 09 2023 18:44:54 Diagnosis: NORMAL SINUS RHYTHM NONSPECIFIC T WAVE ABNORMALITY NO PREVIOUS ECGS AVAILABLE Confirmed by MD MUNIZ JNO ([id number]) on 12/09/2023 6:44:50 PM Test Reason : Location : 4 : [facility] Overread By : MD MUNIZ JNO Edited By : MD MUNIZ JNO Referred By : , Acquired by : SONIYA ECHOLS Normal [facility] HIGH SENSITIVITY TROPONIN To 12-09-2023 Troponin T.cardiac High sensitivity method [Mass/Vol] <6 Normal <12 [facility] Comment on above: Order Comment: Jessica rojo Type: BLOOD SPECIMEN Ordering Facility: [facility] Address: [address] [place] [address] Result Comment: When assessing risk for acute [...] MACE. Performed By: #### H STNT #### [facility] CLIA [id number] [address] [place] [address] [place] Magnesium SerPl-mCncon 12-08 Magnesium [Mass/Vol] 1.9 mg/dL Normal 1.7-2.3 [facility] Comment on above: Order Comment: Jessica rojo Type: BLOOD SPECIMEN Ordering Facility: [facility] Address: [address] [place] [address] Performed By: #### 1 9123-9, 95524-6 #### [employer] [facility] CLIA [id number] [address] [place] PT panel Coag (PPP)on 2023 INR Coag (PPP) [Relative time] 1.1 {INR} Normal 0.9-1.3 [facility] Comment on above: Order Comment: Jessica rojo Type: BLOOD SPECIMEN Ordering Facility: [facility] Address: [address] [place] [address] Result Comment: Akosua min K Antagonist (VKA) Therapeutic Range: INR 2 to 3 (Target INR of 2.5) Note: For patients treated with VKA drugs, such as warfarin, the [employer] 2012 Guideline recommends [...] Chest 2012, 141:7S-47S Kim RA, et al. [facility] 2017, 70: 252-289 Performed By: #### 3 4528-0, 94189-0 #### [employer] [facility] CLIA [id number] [address] [place] [address] [place] PT Coag (PPP) [Time] 11.4 s Normal 9.7-13.0 [facility] Comment on above: Order Comment: Jessica darrel Type: BLOOD SPECIMEN Ordering Facility: [facility] Address: [address] [id number] Performed By: #### 3 4528-0, 53447-8 #### [employer] [facility] CLIA [id number] [address] [place] [id number] [facility] aPTT PPPon 12-09-2023 aPTT Coag (PPP) [Time] 26.9 s Normal 23.0-32.4 [facility] Comment on above: Order Comment: Speci men Type: BLOOD SPECIMEN Ordering Facility: [facility] Address: [address] [place] [address] [place] [address] Performed By: #### 3 4528-0, 01807-4 #### [facility] CLIA [id number] [address] [place] [id number] [facility] XR HIP 2-3 VIEWS LEFTon XR [...] 12:32:55 PM Ordering Provider: JOSÉ MIGUEL Rosario [facility] ([place]) BASIC METABOLIC PANELon 03- Anion gap [Moles/Vol] 8.4 mmol/L Low 11-23 [facility] Comment on above: Performed By: #### D SANA #### [facility] [address] [place] [address] Calcium [Mass/Vol] 8.4 mg/dL Low 8.5-10.1 [facility] Comment on above: Performed By: #### D SANA #### [facility] [address] [place] [address] Chloride [Moles/Vol] 112 mmol/L High 98-107 [facility] Comment on above: Performed By: #### D SANA #### [facility] [address] [place] [address] CO2 [Moles/Vol] 26.0 mmol/L Normal 21-32 [facility] Comment on above: Performed By: #### D SANA #### [facility] [address] [place] [address] Creatinine [Mass/Vol] 0.80 mg/dL Normal 0.55-1.02 [facility] Comment on above: Performed By: #### D SANA #### [facility] [address] [place] [address] GFR > 60.0 [facility] Comment on above: Performed By: #### D SANA #### [facility] [address] [place] [address] GFR AM > 60.0 [facility] Comment on above: Result Comment: THE NORMAL LEVEL OF GFR VARIES ACCORDING TO AGE, SEX, AND BODY SIZE. A GFR LEVEL OF LESS THAN 60 ML/MIN REPRESENTS LOSS OF THE ADULT LEVEL OF NORMAL KIDNEY FUNCTION. Performed By: #### D SANA #### [address] [place] [address] Glucose [Mass/Vol] 153 mg/dL High 70-100 [facility] Comment on above: Performed By: #### D SANA #### [address] [place] [address] Potassium [Moles/Vol] 3.8 mmol/L Normal 3.5-5.1 [facility] Comment on above: Performed By: #### D SANA #### [address] [place] [address] Sodium [Moles/Vol] 142 mmol/L Normal 136-145 [facility] Comment on above: Performed By: #### D SANA #### [facility] [address] [place] [address] Urea nitrogen [Mass/Vol] 9.0 mg/dL Normal 7-18 [facility] Comment on above: Performed By: #### D SANA #### [facility] [address] [place] [address] HCG URINEon 10-15-2023 Beta HCG ( test) Ql (U) Positive [facility] Comment on above: Order Comment: What Is Urine Source? Clean Catch Mid Stream Performed By: #### D SANA #### [address] [place] [address] URINALYSISon 10-15-2023 Color (U) Savita Normal [facility] Comment on above: Order Comment: What Is Urine Source? Clean Catch Mid [place] What Is Urine Source? Clean Catch Mid Stream Performed By: #### U A, UMIC #### [address] [place] [address] URINE MICROSCOPICon 10-15-19 24 URINE BACTERIA FEW Normal <1+ [facility] Comment on above: Performed By: #### U A, UMIC #### [address] [address] URINE WBC 0-3 Normal 0-3 [facility] Comment on above: Performed By: #### U A, UMIC #### [address] [address] RBC (U) [#/Vol] /uL Normal 0-2 [facility] Comment on above: Performed By: #### U A, UMIC #### [address] [address] UR SQUAM EPITH MODERATE Normal NONE-MANY [facility] Comment on above: Performed By: #### U A, UMIC #### [address] [address] CBC with AUTO DIFFon 024 BAS0 % 0.30 % Normal 0-2 [facility] Comment on above: Performed By: #### C BC #### [address] [address] Basophils (Bld) [#/Vol] 0.0 10*3/uL Normal 0-0.1 [facility] Comment on above: Performed By: #### C BC #### [address] [address] Eosinophils (Bld) [#/Vol] 0.2 10*3/uL Normal 0.0-1.80 [facility] Comment on above: Performed By: #### C BC #### [address] [address] Eosinophils/100 WBC (Bld) 1.7 % Normal 0-8 [facility] Comment on above: Performed By: #### C BC #### [address] [address] GRAN # 6.5 K/uL Normal 2.2-9.1 [facility] Comment on above: Performed By: #### C BC #### [facility] [address] [place] [address] GRAN % 69.1 % Normal 42-80 [facility] Comment on above: Performed By: #### C BC #### [facility] [address] [place] [address] Hematocrit (Bld) [Volume fraction] 30.0 % Low 37.0-47.0 [facility] Comment on above: Performed By: #### C BC #### [facility] [address] [place] [address] Hemoglobin (Bld) [Mass/Vol] 10.0 g/dL Low 12.0-16.0 [facility] Comment on above: Performed By: #### C BC #### [address] [place] [address] Lymphocytes (Bld) [#/Vol] 2.3 10*3/uL Normal 1.0-4.0 [facility] Comment on above: Performed By: #### C BC #### [address] [place] [address] Lymphocytes/100 WBC (Bld) 24.5 % Normal 16-48 [facility] Comment on above: Performed By: #### C BC #### [facility] [address] [place] [address] MCV (RBC) [Entitic vol] 81.9 fL Normal 80-97 [facility] Comment on above: Performed By: #### C BC #### [address] [place] [address] MEAN CORPUSCULAR HGB 27.2 pg Normal 26.0-32.0 [facility] Comment on above: Performed By: #### C BC #### [address] [place] [address] MEAN CORPUSCULAR HGB CONC 33.2 g/dL Normal 31.0-36.0 [facility] Comment on above: Performed By: #### C BC #### [facility] [address] [place] [address] MONO DISTRIB WIDTH 15.47 Normal 0-20 [facility] Comment on above: Result Comment: For ED adult patients suspected of sepsis, MDW<=20.0 does not rule out sepsis or risk of sepsis Performed By: #### C BC #### [facility] [address] [place] [address] Monocytes (Bld) [#/Vol] 0.4 10*3/uL Normal 0.1-1.7 [facility] Comment on above: Performed By: #### C BC #### [facility] [address] [place] [address] Monocytes/100 WBC (Bld) 4.4 % Normal 3-9 [facility] Comment on above: Performed By: #### C BC #### [facility] [address] [place] [address] Platelet mean volume (Bld) [Entitic vol] 8.8 fL Normal 6.6-10.5 [facility] Comment on above: Performed By: #### C BC #### [facility] [address] [place] [address] Platelets (Bld) [#/Vol] 165 10*3/uL Normal 140-450 [facility] Comment on above: Performed By: #### C BC #### [facility] [address] [place] [address] RBC (Bld) [#/Vol] 3.67 10*6/uL Low 4.20-5.50 [facility] Comment on above: Performed By: #### C BC #### [facility] [address] [place] [address] RED CELL DISTRI WIDTH 17.2 % High 11.0-15.5 [facility] Comment on above: Performed By: #### C BC #### [facility] [address] [place] [address] WBC (Bld) [#/Vol] 9.4 10*3/uL Normal 4.0-11.0 [facility] Comment on above: Performed By: #### C BC #### [facility] [address] [place] [address] ED.PDOCon 10-14-2023 ED.PDOC BETSY MESA Female [id number] Attending provider: SHANT HUTCHINSON [id number] Juan Tidwell 1995 28 DOS: 10/14/23 Hx/Exam [...] She states she does not have a last ironer, so presents to the emergency department for [...] Psych: Euthymic, with normal affect. : RN office support present, external genitalia unremarkable. Pelvic exam reveals [...] with Dr. Jacobo who is covering the [employer] service. Patient arrives after hours, ultrasound considered but unable to be ordered due to lack of coverage, Dr. Jacobo states this can be arranged as an outpatient. She recommends 800 mcg of intravaginal Cytotec with a repeat dose in 24 hours. She will refer the patient to the [facility] for outpatient follow-up. Return indications [...] upon t (more content not included)... Normal [facility] Laboratory studies (set)on 0 10-14-2023 Appearance (U) CLEAR [facility] Bilirubin Ql (U) NEGATIVE [facility] Color (U) [facility] Glucose Ql (U) NEGATIVE [facility] HCG Qn (U) [facility] Ketones Ql (U) NEGATIVE [facility] Leukocyte esterase Test strip Ql (U) NEGATIVE [facility] Nitrite Ql (U) NEGATIVE [facility] pH (U) 8.0 [pH] 5.0-9.0 [facility] Protein Ql (U) NEGATIVE [facility] RBC (U) [#/Vol] High NEGATIVE [facility] RBC LM.HPF (Urine sed) [#/Area] 0-2 [facility] Specific gravity (U) [Rel density] 1.020 1.003-1.035 [facility] Urine Bacteria <1+ [facility] Urine Squamous Epithelial Cells NONE-MANY [facility] Urine WBC 0-3 [facility] Urobilinogen Ql (U) 0.2 E.U./dL <=1.0 [facility] Anion gap [Moles/Vol] 8.4 mmol/L Low 11-23 [facility] iance [facility] Basophils (Bld) [#/Vol] 0.0 10*3/uL 0-0.1 [facility] Basophils/100 WBC (Bld) 0.30 % 0-2 [facility] Calcium [Mass/Vol] 8.4 mg/dL Low 8.5-10.1 [facility] Chloride [Moles/Vol] 112 mmol/L High 98-107 [facility] CO2 [Moles/Vol] 26.0 mmol/L 21-32 [facility] Creatinine [Mass/Vol] 0.80 mg/dL 0.55-1.02 [facility] Eosinophils (Bld) [#/Vol] 0.2 10*3/uL 0.0-1.80 [facility] Eosinophils/100 WBC (Bld) 1.7 % 0-8 [facility] Erythrocyte distribution width (RBC) [Ratio] 17.2 % High 11.0-15.5 [facility] Estimated GFR () [facility] Comment on above: THE NORMAL LEVEL OF GFR VARIES ACCORDING TO AGE, SEX, AND BODY SIZE. A GFR LEVEL OF LESS THAN 60 ML/MIN REPRESENTS LOSS OF THE ADULT LEVEL OF NORMAL KIDNEY FUNCTION. GFR/1.73 sq M.predicted among non-blacks MDRD (S/P/Bld) [Vol rate/Area] [facility] Glucose [Mass/Vol] 153 mg/dL High 70-100 [facility] Granulocytes (Bld) [#/Vol] 6.5 10*3/uL 2.2-9.1 [facility] Granulocytes/100 WBC (Bld) 69.1 % 42-80 [facility] Hematocrit (Bld) [Volume fraction] 30.0 % Low 37.0-47.0 [facility] Hemoglobin (Bld) [Mass/Vol] 10.0 g/dL Low 12.0-16.0 [facility] Lymphocytes (Bld) [#/Vol] 2.3 10*3/uL 1.0-4.0 [facility] Lymphocytes/100 WBC (Bld) 24.5 % 16-48 [facility] MCH (RBC) [Entitic mass] 27.2 pg 26.0-32.0 [facility] MCHC (RBC) [Mass/Vol] 33.2 g/dL 31.0-36.0 [facility] MCV (RBC) [Entitic vol] 81.9 fL 80-97 [facility] Monocyte distribution width Auto (Bld) [Entitic vol] 15.47 0-20 [facility] Comment on above: For ED adult patient s suspected of sepsis, MDW<=20.0 does not rule out sepsis or risk of sepsis Monocytes (Bld) [#/Vol] 0.4 10*3/uL 0.1-1.7 [facility] Monocytes/100 WBC (Bld) 4.4 % 3-9 [facility] Platelet mean volume (Bld) [Entitic vol] 8.8 fL 6.6-10.5 [facility] Platelets (Bld) [#/Vol] 165 10*3/uL 140-450 [facility] Potassium [Moles/Vol] 3.8 mmol/L 3.5-5.1 [facility] RBC (Bld) [#/Vol] 3.67 10*6/uL Low 4.20-5.50 [facility] Sodium [Moles/Vol] 142 mmol/L 136-145 [facility] Urea nitrogen [Mass/Vol] 9.0 mg/dL 7-18 [facility] WBC (Bld) [#/Vol] 9.4 10*3/uL 4.0-11.0 [facility] URINALYSISon 10-14-2023 Appearance (U) Clear Normal CLEAR [facility] Comment on above: Order Comment: What Is Urine Source? Clean Catch [place] What Is Urine Source? Clean Catch [place] Performed By: #### U A, UMIC #### [facility] [address] [place] [address] Hemoglobin Ql (U) 3+ Abnormal NEGATIVE [facility] Comment on above: Order Comment: What Is Urine Source? Clean Catch [place] What Is Urine Source? Clean Catch [place] Performed By: #### U A UMIC #### [address] [address] pH (U) 8.0 [pH] Normal 5.0-9.0 [facility] Comment on above: Order Comment: What Is Urine Source? Clean [place]atch [place] What Is Urine Source? Clean [place]atch [place] Performed By: #### U A UMIC #### [address] [address] URINE BILIRUBIN - DIPSTICK Negative Normal NEGATIVE [facility] Comment on above: Order Comment: What Is Urine Source? Clean [place]atch [place] What Is Urine Source? Clean [place] Performed By: #### U A UMIC #### [address] [address] URINE GLUCOSE -DIPSTICK Negative Normal NEGATIVE [facility] Comment on above: Order Comment: What Is Urine Source? Clean [place] What Is Urine Source? Clean [place]atch [place] Performed By: #### U A UMIC #### [address] [address] URINE KETONE Negative Normal NEGATIVE [facility] Comment on above: Order Comment: What Is Urine Source? Clean [place]atch [place] What Is Urine Source? Clean [place]atch [place] Performed By: #### U A UMIC #### [address] [address] URINE LEUK ESTERASE Negative Normal NEGATIVE [facility] Comment on above: Order Comment: What Is Urine Source? Clean Catch [place] What Is Urine Source? Clean Catch Mid [place] Performed By: #### U A, UMIC #### [address] [address] URINE NITRITE - DIPSTICK Negative Normal NEGATIVE [facility] Comment on above: Order Comment: What Is Urine Source? Clean Catch [place] What Is Urine Source? Clean Catch [place] Performed By: #### U A, UMIC #### [address] [address] URINE PROTEIN - DIPSTICK Negative Normal NEGATIVE [facility] Comment on above: Order Comment: What Is Urine Source? Clean Catch [place] What Is Urine Source? Clean Catch [place] Performed By: #### U A UMIC #### [address] [address] URINE SPEC GRAVITY, DIPSTICK 1.020 Normal 1.003-1.035 [facility] Comment on above: Order Comment: What Is Urine Source? Clean [place]atch [place] What Is Urine Source? Clean Catch [place] Performed By: #### U A, UMIC #### [address] [address] URINE UROBILINOGEN - DIPSTICK 0.2 E.U./dL Normal <=1.0 [facility] Comment on above: Order Comment: What Is Urine Source? Clean [place] What Is Urine Source? Clean [place]atch [place] Performed By: #### U A UMIC #### [address] [address] ACETONEon 08-11-2023 ACETONE Negative Normal [facility] Comment on above: Performed By: #### M N, TRO, ACTN #### [address] [address] CBC with AUTO DIFFon 024 BAS0 % 0.90 % Normal 0-2 [facility] Comment on above: Performed By: #### C BC #### [address] [address] Basophils (Bld) [#/Vol] 0.1 10*3/uL Normal 0-0.1 [facility] Comment on above: Performed By: #### C BC #### [address] [address] Eosinophils (Bld) [#/Vol] 0.2 10*3/uL Normal 0.0-1.80 [facility] Comment on above: Performed By: #### C BC #### [address] [address] Eosinophils/100 WBC (Bld) 3.2 % Normal 0-8 [facility] Comment on above: Performed By: #### C BC #### [address] [address] GRAN # 3.8 K/uL Normal 2.2-9.1 [facility] Comment on above: Performed By: #### C BC #### [facility] [address] [place] [address] GRAN % 51.1 % Normal 42-80 [facility] Comment on above: Performed By: #### C BC #### [facility] [address] [place] [address] Hematocrit (Bld) [Volume fraction] 31.4 % Low 37.0-47.0 [facility] Comment on above: Performed By: #### C BC #### [facility] [address] [place] [address] Hemoglobin (Bld) [Mass/Vol] 10.1 g/dL Low 12.0-16.0 [facility] Comment on above: Performed By: #### C BC #### [facility] [address] [place] [address] Lymphocytes (Bld) [#/Vol] 2.9 10*3/uL Normal 1.0-4.0 [facility] Comment on above: Performed By: #### C BC #### [address] [place] [address] Lymphocytes/100 WBC (Bld) 38.9 % Normal 16-48 [facility] Comment on above: Performed By: #### C BC #### [facility] [address] [place] [address] MCV (RBC) [Entitic vol] 80.0 fL Normal 80-97 [facility] Comment on above: Performed By: #### C BC #### [facility] [address] [place] [address] MEAN CORPUSCULAR HGB 25.8 pg Low 26.0-32.0 [facility] Comment on above: Performed By: #### C BC #### [facility] [address] [place] [address] MEAN CORPUSCULAR HGB CONC 32.3 g/dL Normal 31.0-36.0 [facility] Comment on above: Performed By: #### C BC #### [facility] [address] [place] [address] MONO DISTRIB WIDTH 15.35 Normal 0-20 [facility] Comment on above: Result Comment: For ED adult patients suspected of sepsis, MDW<=20.0 does not rule out sepsis or risk of sepsis Performed By: #### C BC #### [facility] [address] [place] [address] Monocytes (Bld) [#/Vol] 0.4 10*3/uL Normal 0.1-1.7 [facility] Comment on above: Performed By: #### C BC #### [facility] [address] [place] [address] Monocytes/100 WBC (Bld) 5.9 % Normal 3-9 [facility] Comment on above: Performed By: #### C BC #### [facility] [address] [place] [address] Platelet mean volume (Bld) [Entitic vol] 8.7 fL Normal 6.6-10.5 [facility] Comment on above: Performed By: #### C BC #### [facility] [address] [place] [address] Platelets (Bld) [#/Vol] 185 10*3/uL Normal 140-450 [facility] Comment on above: Performed By: #### C BC #### [facility] [address] [place] [address] RBC (Bld) [#/Vol] 3.93 10*6/uL Low 4.20-5.50 [facility] Comment on above: Performed By: #### C BC #### [facility] [address] [place] [address] RED CELL DISTRI WIDTH 17.5 % High 11.0-15.5 [facility] Comment on above: Performed By: #### C BC #### [facility] [address] [place] [address] WBC (Bld) [#/Vol] 7.4 10*3/uL Normal 4.0-11.0 [facility] Comment on above: Performed By: #### C BC #### [facility] [address] [place] [address] COMPREHENSIVE METABOLIC PANE Sarath 08-11-2023 Albumin [Mass/Vol] 3.6 g/dL Normal 3.4-5.0 [facility] Comment on above: Performed By: #### M N, TRO, ACTN #### [facility] [address] [place] [address] Albumin/Globulin [Mass ratio] 0.9 {ratio} Low 1.1-1.8 [facility] Comment on above: Performed By: #### M GEOAVNNY Johnson ACTN #### [facility] [address] [place] [address] ALP [Catalytic activity/Vol] 73 U/L Normal 45-117 [facility] Comment on above: Performed By: #### GEOVANNY Soto, ACTN #### [facility] [address] [place] [address] ALT [Catalytic activity/Vol] 17 U/L Normal 12-78 [facility] Comment on above: Performed By: #### GEOVANNY Soto ACTN #### [facility] [address] [place] [address] Anion gap [Moles/Vol] 9.2 mmol/L Low 11-23 [facility] Comment on above: Performed By: #### GEOVANNY Soto ACTN #### [facility] [address] [place] [address] AST [Catalytic activity/Vol] 9 U/L Low 15-37 [facility] Comment on above: Performed By: #### GEOVANNY Soto ACTN #### [facility] [address] [place] [address] Bilirubin [Mass/Vol] 0.3 mg/dL Normal 0.2-1.0 [facility] Comment on above: Performed By: #### GEOVANNY Soto ACTN #### [facility] [address] [place] [address] Calcium [Mass/Vol] 8.4 mg/dL Low 8.5-10.1 [facility] Comment on above: Performed By: #### GEOVANNY Soto ACTN #### [facility] [address] [place] [address] Chloride [Moles/Vol] 108 mmol/L High 98-107 [facility] Comment on above: Performed By: #### GEOVANNY Soto ACTN #### [facility] [address] [place] [address] CO2 [Moles/Vol] 23.0 mmol/L Normal 21-32 [facility] Comment on above: Performed By: #### GEOVANNY Soto ACTN #### [facility] [address] [place] [address] Creatinine [Mass/Vol] 0.70 mg/dL Normal 0.55-1.02 [facility] Comment on above: Performed By: #### M GEOVANNY Johnson, ACTN #### [facility] [address] [place] [address] GFR > 60.0 [facility] Comment on above: Performed By: #### M GEOVANNY Johnson, ACTN #### [facility] [address] [place] [address] GFR AM > 60.0 [facility] Comment on above: Result Comment: THE NORMAL LEVEL OF GFR VARIES ACCORDING TO AGE, SEX, AND BODY SIZE. A GFR LEVEL OF LESS THAN 60 ML/MIN REPRESENTS LOSS OF THE ADULT LEVEL OF NORMAL KIDNEY FUNCTION. Performed By: #### M GEOVANNY Johnson, ACTN #### [facility] [address] [place] [address] Globulin (S) [Mass/Vol] 3.8 g/dL Normal 2.5-4.6 [facility] Comment on above: Performed By: #### M GEOVANNY Johnson, ACTN #### [address] [place] [address] Glucose [Mass/Vol] 120 mg/dL High 70-100 [facility] Comment on above: Performed By: #### M GEOVANNY Johnson, ACTN #### [address] [place] [address] Potassium [Moles/Vol] 3.8 mmol/L Normal 3.5-5.1 [facility] Comment on above: Performed By: #### M GEOVANNY Johnson, ACTN #### [address] [place] [address] Protein [Mass/Vol] 7.3 g/dL Normal 6.0-8.3 [facility] Comment on above: Performed By: #### M GEOVANNY Johnson, ACTN #### [address] [place] [address] Sodium [Moles/Vol] 136 mmol/L Normal 136-145 [facility] Comment on above: Performed By: #### M GEOVANNY Johnson ACTN #### [address] [place] [address] Urea nitrogen [Mass/Vol] 7.0 mg/dL Normal 7-18 [facility] Comment on above: Performed By: #### M GEOVANNY Johnson ACTN #### [address] [place] [address] ED.PDOCon 08-11-2023 ED.PDOC BETSY MESA Female [id number] Attending provider: [facility] [id number] Vern Henry 1995 28 DOS: 08/11/23 Hx/Exam [...] note is completed with assistance of the [employer] dictation program. While every attempt has been [...] BID #[id number] Transmission Status: Pending to [facility] #[id number] Referrals: Alex Avila [ACTIVE] - 2-3 Days Dictated By: Vern Henry MD Dictated Date/Time:08/11/23 1120 Electronically Signed Date/Time: 08/11/23 (more content not included)... Normal [facility] HCG URINEon 08-11-2023 Beta HCG ( test) Ql (U) Negative Normal [facility] Comment on above: Order Comment: What Is Urine Source? Clean Catch Mid Stream Performed By: #### D SANA #### [address] [address] Laboratory studies (set)on 0 08-11-2023 Acetone Level [facility] Albumin [Mass/Vol] 3.6 g/dL 3.4-5.0 [facility] Albumin/Globulin [Mass ratio] 0.9 {ratio} Low 1.1-1.8 [facility] ALP [Catalytic activity/Vol] 73 U/L 45-117 [facility] ALT [Catalytic activity/Vol] 17 U/L 12-78 [facility] Anion gap [Moles/Vol] 9.2 mmol/L Low 11-23 [facility] Appearance (U) CLEAR [facility] AST [Catalytic activity/Vol] 9 U/L Low 15-37 [facility] Basophils (Bld) [#/Vol] 0.1 10*3/uL 0-0.1 [facility] Basophils/100 WBC (Bld) 0.90 % 0-2 [facility] Bilirubin [Mass/Vol] 0.3 mg/dL 0.2-1.0 [facility] Ql (U) NEGATIVE [facility] Calcium [Mass/Vol] 8.4 mg/dL Low 8.5-10.1 [facility] Chloride [Moles/Vol] 108 mmol/L High 98-107 [facility] CO2 [Moles/Vol] 23.0 mmol/L 21-32 [facility] Color (U) [facility] Creatinine [Mass/Vol] 0.70 mg/dL 0.55-1.02 [facility] Eosinophils (Bld) [#/Vol] 0.2 10*3/uL 0.0-1.80 [facility] Eosinophils/100 WBC (Bld) 3.2 % 0-8 [facility] Erythrocyte distribution width (RBC) [Ratio] 17.5 % High 11.0-15.5 [facility] Estimated GFR () [facility] Comment on above: THE NORMAL LEVEL OF GFR VARIES ACCORDING TO AGE, SEX, AND BODY SIZE. A GFR LEVEL OF LESS THAN 60 ML/MIN REPRESENTS LOSS OF THE ADULT LEVEL OF NORMAL KIDNEY FUNCTION. GFR/1.73 sq M.predicted among non-blacks MDRD (S/P/Bld) [Vol rate/Area] [facility] Globulin (S) [Mass/Vol] 3.8 g/dL 2.5-4.6 [facility] Glucose [Mass/Vol] 120 mg/dL High 70-100 [facility] Glucose Ql (U) NEGATIVE [facility] Granulocytes (Bld) [#/Vol] 3.8 10*3/uL 2.2-9.1 [facility] Granulocytes/100 WBC (Bld) 51.1 % 42-80 [facility] HCG Qn (U) [facility] Hematocrit (Bld) [Volume fraction] 31.4 % Low 37.0-47.0 [facility] Hemoglobin (Bld) [Mass/Vol] 10.1 g/dL Low 12.0-16.0 [facility] Ketones Ql (U) NEGATIVE [facility] Leukocyte esterase Test strip Ql (U) High NEGATIVE [facility] Lymphocytes (Bld) [#/Vol] 2.9 10*3/uL 1.0-4.0 [facility] Lymphocytes/100 WBC (Bld) 38.9 % 16-48 [facility] MCH (RBC) [Entitic mass] 25.8 pg Low 26.0-32.0 [facility] MCHC (RBC) [Mass/Vol] 32.3 g/dL 31.0-36.0 [facility] MCV (RBC) [Entitic vol] 80.0 fL 80-97 [facility] Monocyte distribution width Auto (Bld) [Entitic vol] 15.35 0-20 [facility] Comment on above: For ED adult patient s suspected of sepsis, MDW<=20.0 does not rule out sepsis or risk of sepsis Monocytes (Bld) [#/Vol] 0.4 10*3/uL 0.1-1.7 [facility] Monocytes/100 WBC (Bld) 5.9 % 3-9 [facility] Nitrite Ql (U) NEGATIVE [facility] pH (U) 6.0 [pH] 5.0-9.0 [facility] Platelet mean volume (Bld) [Entitic vol] 8.7 fL 6.6-10.5 [facility] Platelets (Bld) [#/Vol] 185 10*3/uL 140-450 [facility] Potassium [Moles/Vol] 3.8 mmol/L 3.5-5.1 [facility] Protein [Mass/Vol] 7.3 g/dL 6.0-8.3 [facility] Protein Ql (U) NEGATIVE [facility] RBC (Bld) [#/Vol] 3.93 10*6/uL Low 4.20-5.50 [facility] RBC (U) [#/Vol] NEGATIVE [facility] RBC LM.HPF (Urine sed) [#/Area] 0-2 [facility] Sodium [Moles/Vol] 136 mmol/L 136-145 [facility] Specific gravity (U) [Rel density] 1.015 1.003-1.035 [facility] Troponin 3.4 pg/mL 0-53.7 [facility] Comment on above: Troponin Reference R flip: Male: 0-78.5 pg/mL (ng/L) Female: 0-53.7 pg/mL (ng/L) Note: The new high sensitivity Troponin units are in pg/mL (ng/L) Urea nitrogen [Mass/Vol] 7.0 mg/dL 7-18 [facility] Urine Bacteria <1+ [facility] Urine Squamous Epithelial Cells NONE-MANY [facility] Urine WBC 0-3 [facility] Urobilinogen Ql (U) 0.2 E.U./dL <=1.0 [facility] WBC (Bld) [#/Vol] 7.4 10*3/uL 4.0-11.0 Torie glynn [facility] TROPONINon 08-11-2023 TROPONIN 3.4 pg/mL Normal 0-53.7 [facility] Comment on above: Result Comment: Trop onin Reference Range: Male: 0-78.5 pg/mL (ng/L) Female: 0-53.7 pg/mL (ng/L) Note: The new high sensitivity Troponin units are in pg/mL (ng/L) Performed By: #### M N, TRO, ACTN #### [address] [address] URINALYSIS W/ C S IF INDICAT EDon 08-11-2023 Appearance (U) Clear Normal CLEAR [facility] Comment on above: Order Comment: What Is Urine Source? Clean Catch Mid StreamWhat Is Urine Source? Clean Catch Mid Stream Performed By: #### D SANA #### [address] [address] Color (U) Lt. Yellow Normal [facility] Comment on above: Order Comment: What Is Urine Source? Clean Catch Mid StreamWhat Is Urine Source? Clean Catch [place] Performed By: #### D SANA #### [address] [address] Hemoglobin Ql (U) Negative Normal NEGATIVE [facility] Comment on above: Order Comment: What Is Urine Source? Clean Catch Mid StreamWhat Is Urine Source? Clean Catch [place] Performed By: #### D SANA #### [address] [address] pH (U) 6.0 [pH] Normal 5.0-9.0 [facility] Comment on above: Order Comment: What Is Urine Source? Clean Catch Mid StreamWhat Is Urine Source? Clean Catch [place] Performed By: #### D SANA #### [address] [address] URINE BILIRUBIN - DIPSTICK Negative Normal NEGATIVE [facility] Comment on above: Order Comment: What Is Urine Source? Clean Catch Mid StreamWhat Is Urine Source? Clean Catch [place] Performed By: #### D SANA #### [address] [address] URINE GLUCOSE - DIPSTICK Negative Normal NEGATIVE [facility] Comment on above: Order Comment: What Is Urine Source? Clean Catch Mid StreamWhat Is Urine Source? Clean Catch [place] Performed By: #### D SANA #### [address] [address] URINE KETONE Negative Normal NEGATIVE [facility] Comment on above: Order Comment: What Is Urine Source? Clean Catch Mid StreamWhat Is Urine Source? Clean [place]atch [place] Performed By: #### D SANA #### [address] [address] URINE LEUK ESTERASE 1+ Abnormal NEGATIVE [facility] Comment on above: Order Comment: What Is Urine Source? Clean Catch Mid StreamWhat Is Urine Source? Clean Catch [place] Performed By: #### D SANA #### [address] [address] URINE NITRITE - DIPSTICK Negative Normal NEGATIVE [facility] Comment on above: Order Comment: What Is Urine Source? Clean Catch Mid StreamWhat Is Urine Source? Clean Catch [place] Performed By: #### D SANA #### [address] [address] URINE PROTEIN - DIPSTICK Negative Normal NEGATIVE [facility] Comment on above: Order Comment: What Is Urine Source? Clean Catch Mid StreamWhat Is Urine Source? Clean [place]atch [place] Performed By: #### D SANA #### [address] [address] URINE SPEC GRAVITY, DIPSTICK 1.015 Normal 1.003-1.035 [facility] Comment on above: Order Comment: What Is Urine Source? Clean Catch Mid StreamWhat Is Urine Source? Clean Catch [place] Performed By: #### D SANA #### [address] [address] URINE UROBILINOGEN - DIPSTICK 0.2 E.U./dL Normal <=1.0 [facility] Comment on above: Order Comment: What Is Urine Source? Clean Catch Mid StreamWhat Is Urine Source? Clean Catch [place] Performed By: #### D SANA #### [address] [address] URINE MICROSCOPICon 08-11-19 24 UR SQUAM EPITH MANY Normal NONE-MANY [facility] Comment on above: Performed By: #### D SANA #### [facility] [address] [place] [address] URINE BACTERIA FEW Normal <1+ [facility] Comment on above: Performed By: #### D SANA #### [facility] [address] [place] [address] URINE RBC 0-2 Normal 0-2 [facility] Comment on above: Performed By: #### D SANA #### [facility] [address] [place] [address] URINE WBC 3-5 Normal 0-3 [facility] Comment on above: Performed By: #### D SANA #### [facility] [address] [place] [address] ED.PDOCon 05-12-2023 ED.PDOC BETSY MESA Female [id number] Attending provider: [facility] [id number] Jeremy Lim 1995 28 DOS: 05/12/23 Hx/Exam [...] normal strength, no pronator drift, speech clear/fluent, dump grader II-XII intact, no ataxia on FNF, ataxic [...] cloudy H Urine pH 6.0 Ur Specific [place] 1.025 Urine Protein Negative Urine Ketones Negative [...] note is completed with assistance of the [employer] dictation program. While every attempt has been made to dictate accurately, the system does make errors in transcribing the precise spoken word intended. 05/12/23 03:25 05/14/23 05:38 EKG - EKG EKG Interpretation: Preliminary ED Interpretation (Sinus rhythm, rate 96, ND 196, QRS 84, QT 350, normal axis. Unchanged compared to 02/13/2023.) Discharge Screen - Discharge Discharge Problem: Headache Disposition: HOME/SELF CARE Condition: Stable Instructions: DI for Headache Prescriptions: Ibuprofen 800 mg PO TID PRN 10 Days #30 tab PRN Reason: Transmission Status: Received by [facility] #[id number] Ondansetron [Zofran Odt] 4 mg PO Q6HR PRN 5 Days #20 tab PRN Reason: Transmission Status: Received by [facility] #[id number] Referrals: Call,On [Primary Care Provider] - Celso Mitchell [ACTIVE] - 3-5 Days (as needed) Dictated By: Jeremy Lim MD Dictated Date/Time:05/12/23210 Electronically Signed Date/Time: 05/14/23 0549 [facility] HEAD W/O CONTRASTon 05-12-20 HEAD W/O CONTRAST BETSY MESA Female [id number] Ordering physician: Jeremy Lim LOC:ER [id number] Attending physician: 1995 28 DO S: 05/12/23 Acc#: [id number] Exam/Proc: HEAD W/O CONTRAST Dept: COMPUTED TOMOGRAPHY [...] Date/Time: 05/12/23300 Dictated Date/time: 05/12/23257 CC: Normal [facility] Laboratory studies (set)on Appearance (U) High CLEAR [facility] Bilirubin Ql (U) NEGATIVE [facility] Color (U) [facility] Glucose Ql (U) NEGATIVE [facility] Hemoglobin Ql (U) NEGATIVE [facility] Ketones Ql (U) NEGATIVE [facility] Leukocyte esterase Test strip Ql (U) High NEGATIVE [facility] Mucus Ql (Urine sed) <1+ [facility] Nitrite Ql (U) NEGATIVE [facility] pH (U) 6.0 [pH] 5.0-9.0 [facility] Protein Ql (U) NEGATIVE [facility] RBC LM.HPF (Urine sed) [#/Area] 0-2 [facility] Specific gravity (U) [Rel density] 1.025 1.003-1.035 [facility] Urine Bacteria <1+ [facility] Comment on above: Culture Pending Urine Squamous Epithelial Cells NONE-MANY [facility] Urine WBC 0-3 [facility] Comment on above: Culture Pending Urobilinogen Ql (U) 0.2 E.U./dL <=1.0 [facility] URINALYSIS W/ C S IF INDICAT EDon 05-12-2023 Appearance (U) Sl Cloudy Abnormal CLEAR [facility] Comment on above: Order Comment: What Is Urine Source? RandomWhat Is Urine Source? Random Performed By: #### D SANA #### [address] [address] Other Comment: Cultu re PendingCulture Pending Color (U) Lt. Yellow Normal [facility] Comment on above: Order Comment: What Is Urine Source? RandomWhat Is Urine Source? Random Performed By: #### D SANA #### [address] [address] Other Comment: Cultu re PendingCulture Pending Hemoglobin Ql (U) Negative Normal NEGATIVE [facility] Comment on above: Order Comment: What Is Urine Source? RandomWhat Is Urine Source? Random Performed By: #### D SANA #### [address] [address] Other Comment: Cultu re PendingCulture Pending pH (U) 6.0 [pH] Normal 5.0-9.0 [facility] Comment on above: Order Comment: What Is Urine Source? RandomWhat Is Urine Source? Random Performed By: #### D SANA #### [address] [address] Other Comment: Cultu re PendingCulture Pending URINE BILIRUBIN - DIPSTICK Negative Normal NEGATIVE [facility] Comment on above: Order Comment: What Is Urine Source? RandomWhat Is Urine Source? Random Performed By: #### D SANA #### [address] [address] Other Comment: Cultu re PendingCulture Pending URINE GLUCOSE - DIPSTICK Negative Normal NEGATIVE [facility] Comment on above: Order Comment: What Is Urine Source? RandomWhat Is Urine Source? Random Performed By: #### D SANA #### [address] [address] Other Comment: Cultu re PendingCulture Pending URINE KETONE Negative Normal NEGATIVE [facility] Comment on above: Order Comment: What Is Urine Source? RandomWhat Is Urine Source? Random Performed By: #### D SANA #### [address] [address] Other Comment: Cultu re PendingCulture Pending URINE LEUK ESTERASE 3+ Abnormal NEGATIVE [facility] Comment on above: Order Comment: What Is Urine Source? RandomWhat Is Urine Source? Random Performed By: #### D SANA #### [address] [address] Other Comment: Cultu re PendingCulture Pending URINE NITRITE - DIPSTICK Negative Normal NEGATIVE [facility] Comment on above: Order Comment: What Is Urine Source? RandomWhat Is Urine Source? Random Performed By: #### D SANA #### [address] [address] Other Comment: Cultu re PendingCulture Pending URINE PROTEIN - DIPSTICK Negative Normal NEGATIVE [facility] Comment on above: Order Comment: What Is Urine Source? RandomWhat Is Urine Source? Random Performed By: #### D SANA #### [address] [address] Other Comment: Cultu re PendingCulture Pending URINE SPEC GRAVITY, DIPSTICK 1.025 Normal 1.003-1.035 [facility] Comment on above: Order Comment: What Is Urine Source? RandomWhat Is Urine Source? Random Performed By: #### D SANA #### [address] [address] Other Comment: Cultu re PendingCulture Pending URINE UROBILINOGEN - DIPSTICK 0.2 E.U./dL Normal <=1.0 [facility] Comment on above: Order Comment: What Is Urine Source? RandomWhat Is Urine Source? Random Performed By: #### D SANA #### [address] [address] Other Comment: Cultu re PendingCulture Pending URINE MICROSCOPICon 05-12-20 23 Mucus Ql (Urine sed) SL AMT Normal <1+ [facility] Comment on above: Performed By: #### D SANA #### [address] [address] Other Comment: Cultu re PendingCulture Pending UR SQUAM EPITH MANY Normal NONE-MANY [facility] Comment on above: Performed By: #### D SANA #### [place] [address] [place] [address] Other Comment: Cultu re PendingCulture Pending URINE BACTERIA 1+ Normal <1+ [facility] Comment on above: Performed By: #### D SANA #### [facility] [address] [place] [address] Other Comment: Cultu re PendingCulture Pending URINE RBC NONE SEEN Normal 0-2 [facility] Comment on above: Performed By: #### D SANA #### [facility] [address] [place] [address] Other Comment: Cultu re PendingCulture Pending URINE WBC 30-40 Normal 0-3 [facility] Comment on above: Performed By: #### D SANA #### [facility] [address] [place] [address] Other Comment: Cultu re PendingCulture Pending BASIC METABOLIC PANELon 07-08 06-2022 Anion gap [Moles/Vol] 10.0 mmol/L Low 11-23 [facility] Comment on above: Performed By: #### B MP #### [facility] [address] [place] [address] Calcium [Mass/Vol] 8.5 mg/dL Normal 8.5-10.1 [facility] Comment on above: Performed By: #### B MP #### [facility] [address] [place] [address] Chloride [Moles/Vol] 111 mmol/L High 98-107 [facility] Comment on above: Performed By: #### B MP #### [facility] [address] [place] [address] CO2 [Moles/Vol] 24.0 mmol/L Normal 21-32 [facility] Comment on above: Performed By: #### B MP #### [facility] [address] [place] [address] Creatinine [Mass/Vol] 0.70 mg/dL Normal 0.55-1.02 [facility] Comment on above: Performed By: #### B MP #### [facility] [address] [place] [address] GFR > 60.0 Normal [facility] Comment on above: Performed By: #### B MP #### [facility] [address] [place] [address] GFR AM > 60.0 Normal [facility] Comment on above: Result Comment: THE NORMAL LEVEL OF GFR VARIES ACCORDING TO AGE, SEX, AND BODY SIZE. A GFR LEVEL OF LESS THAN 60 ML/MIN REPRESENTS LOSS OF THE ADULT LEVEL OF NORMAL KIDNEY FUNCTION. Performed By: #### B MP #### [address] [address] Glucose [Mass/Vol] 120 mg/dL High 70-100 [facility] Comment on above: Performed By: #### B MP #### [address] [address] Potassium [Moles/Vol] 3.6 mmol/L Normal 3.5-5.1 [facility] Comment on above: Performed By: #### B MP #### [address] [address] Sodium [Moles/Vol] 142 mmol/L Normal 136-145 [facility] Comment on above: Performed By: #### B MP #### [address] [address] Urea nitrogen [Mass/Vol] 10.0 mg/dL Normal 7-18 [facility] Comment on above: Performed By: #### B MP #### [address] [address] CBC with AUTO DIFFon 182 023 BAS0 % 0.40 % Normal 0-2 [facility] Comment on above: Performed By: #### C BC #### [address] [address] Basophils (Bld) [#/Vol] 0.0 10*3/uL Normal 0-0.1 [facility] Comment on above: Performed By: #### C BC #### [address] [place] [address] Eosinophils (Bld) [#/Vol] 0.2 10*3/uL Normal 0.0-1.80 [facility] Comment on above: Performed By: #### C BC #### [facility] [address] [place] [address] Eosinophils/100 WBC (Bld) 2.8 % Normal 0-8 [facility] Comment on above: Performed By: #### C BC #### [address] [address] GRAN # 3.9 K/uL Normal 2.2-9.1 [facility] Comment on above: Performed By: #### C BC #### [facility] [address] [place] [address] GRAN % 53.4 % Normal 42-80 [facility] Comment on above: Performed By: #### C BC #### [facility] [address] [place] [address] Hematocrit (Bld) [Volume fraction] 32.7 % Low 37.0-47.0 [facility] Comment on above: Performed By: #### C BC #### [facility] [address] [place] [address] Hemoglobin (Bld) [Mass/Vol] 10.8 g/dL Low 12.0-16.0 [facility] Comment on above: Performed By: #### C BC #### [address] [address] Lymphocytes (Bld) [#/Vol] 2.6 10*3/uL Normal 1.0-4.0 [facility] Comment on above: Performed By: #### C BC #### [address] [place] [address] Lymphocytes/100 WBC (Bld) 36.3 % Normal 16-48 [facility] Comment on above: Performed By: #### C BC #### [address] [place] [address] MCV (RBC) [Entitic vol] 79.5 fL Low 80-97 [facility] Comment on above: Performed By: #### C BC #### [address] [place] [address] MEAN CORPUSCULAR HGB 26.1 pg Normal 26.0-32.0 [facility] Comment on above: Performed By: #### C BC #### [facility] [address] [place] [address] MEAN CORPUSCULAR HGB CONC 32.9 g/dL Normal 31.0-36.0 [facility] Comment on above: Performed By: #### C BC #### [facility] [address] [place] [address] MONO DISTRIB WIDTH 15.75 Normal 0-20 [facility] Comment on above: Result Comment: For ED adult patients suspected of sepsis, MDW<=20.0 does not rule out sepsis or risk of sepsis Performed By: #### C BC #### [facility] [address] [place] [address] Monocytes (Bld) [#/Vol] 0.5 10*3/uL Normal 0.1-1.7 [facility] Comment on above: Performed By: #### C BC #### [facility] [address] [place] [address] Monocytes/100 WBC (Bld) 7.1 % Normal 3-9 [facility] Comment on above: Performed By: #### C BC #### [facility] [address] [place] [address] Platelet mean volume (Bld) [Entitic vol] 9.8 fL Normal 6.6-10.5 [facility] Comment on above: Performed By: #### C BC #### [facility] [address] [place] [address] Platelets (Bld) [#/Vol] 165 10*3/uL Normal 140-450 [facility] Comment on above: Performed By: #### C BC #### [address] [place] [address] RBC (Bld) [#/Vol] 4.12 10*6/uL Low 4.20-5.50 [facility] Comment on above: Performed By: #### C BC #### [facility] [address] [place] [address] RED CELL DISTRI WIDTH 17.7 % High 11.0-15.5 [facility] Comment on above: Performed By: #### C BC #### [facility] [address] [place] [address] WBC (Bld) [#/Vol] 7.3 10*3/uL Normal 4.0-11.0 [facility] Comment on above: Performed By: #### C BC #### [facility] [address] [place] [address] CHEST-2 VIEWon 02-13-2023 CHEST-2 VIEW BONITABETSY Female [id number] Ordering physician: Leandra Keller LOC:ER [id number] Attending physician: 1995 27 DO S: 02/13/23 [facility]#: [id number] Exam/Proc: CHEST-2 VIEW Dept: RADIOLOGY EXAMINATION: Exam [...] 02/13/2023 6:55:15 AM EST Workstation ID : [id number] REPORT SIGNATURE ON FILE Electronically Signed Date/Time: 02/13/23 0655 Dictated Date/time: 02/13/23 0652 CC: Normal [facility] D-DIMERon 02-13-2023 D-DIMER 0.48 mg/L FEU Normal 0.0-0.59 [facility] Comment on above: Result Comment: [...] therapy. Performed By: #### D SANA #### [address] [address] ED.PDOCon 02-13-2023 ED.PDOC BETSY MESA Female [id number] Attending provider: SHANT HUTCHINSON [id number] Leandra Keller 1995 27 DOS: 02/13/23 Case [...] Dictated Date/Time:02/13/23 0549 Electronically Signed Date/Time: 02/13/2314 [facility] LOWER EXT DVT RIGHTon 2022 LOWER EXT DVT RIGHT BETSY MESA Female [id number] Ordering physician: Leandra Keller LOC:ER [id number] Attending physician: 1995 27 DO S: 02/13/23 Acc#: [id number] Exam/Proc: LOWER EXT DVT RIGHT Dept: ULTRASOUND [...] 02/13/2023 7:50:07 AM EST Workstation ID : [id number] REPORT SIGNATURE ON FILE Electronically Signed Date/Time: 02/13/23 0750 Dictated Date/time: 02/13/23 0749 CC: Normal [facility] Laboratory studies (set)on 0 02-13-2023 Anion gap [Moles/Vol] 10.0 mmol/L Low 06-21 [facility] Basophils (Bld) [#/Vol] 0.0 10*3/uL 0-0.1 [facility] Basophils/100 WBC (Bld) 0.40 % 0-2 [facility] Calcium [Mass/Vol] 8.5 mg/dL 8.5-10.1 [facility] Chloride [Moles/Vol] 111 mmol/L High 98-107 [facility] CO2 [Moles/Vol] 24.0 mmol/L 21-32 [facility] Creatinine [Mass/Vol] 0.70 mg/dL 0.55-1.02 [facility] D-Dimer, Quantitative 0.48 mg/L FEU 0.0-0.59 [facility] Comment on above: The cut-off [...] therapy. Eosinophils (Bld) [#/Vol] 0.2 10*3/uL 0.0-1.80 [facility] Eosinophils/100 WBC (Bld) 2.8 % 0-8 [facility] Erythrocyte distribution width (RBC) [Ratio] 17.7 % High 11.0-15.5 [facility] Estimated GFR () [facility] Comment on above: THE NORMAL LEVEL OF GFR VARIES ACCORDING TO AGE, SEX, AND BODY SIZE. A GFR LEVEL OF LESS THAN 60 ML/MIN REPRESENTS LOSS OF THE ADULT LEVEL OF NORMAL KIDNEY FUNCTION. GFR/1.73 sq M.predicted among non-blacks MDRD (S/P/Bld) [Vol rate/Area] [facility] Glucose [Mass/Vol] 120 mg/dL High 70-100 [facility] Granulocytes (Bld) [#/Vol] 3.9 10*3/uL 2.2-9.1 [facility] Granulocytes/100 WBC (Bld) 53.4 % 42-80 [facility] Hematocrit (Bld) [Volume fraction] 32.7 % Low 37.0-47.0 [facility] Hemoglobin (Bld) [Mass/Vol] 10.8 g/dL Low 12.0-16.0 [facility] Lymphocytes (Bld) [#/Vol] 2.6 10*3/uL 1.0-4.0 [facility] Lymphocytes/100 WBC (Bld) 36.3 % 16-48 [facility] MCH (RBC) [Entitic mass] 26.1 pg 26.0-32.0 [facility] MCHC (RBC) [Mass/Vol] 32.9 g/dL 31.0-36.0 [facility] MCV (RBC) [Entitic vol] 79.5 fL Low 80-97 [facility] Monocyte distribution width Auto (Bld) [Entitic vol] 15.75 0-20 [facility] Comment on above: For ED adult patient s suspected of sepsis, MDW<=20.0 does not rule out sepsis or risk of sepsis Monocytes (Bld) [#/Vol] 0.5 10*3/uL 0.1-1.7 [facility] Monocytes/100 WBC (Bld) 7.1 % 3-9 [facility] Platelet mean volume (Bld) [Entitic vol] 9.8 fL 6.6-10.5 [facility] Platelets (Bld) [#/Vol] 165 10*3/uL 140-450 [facility] Potassium [Moles/Vol] 3.6 mmol/L 3.5-5.1 [facility] RBC (Bld) [#/Vol] 4.12 10*6/uL Low 4.20-5.50 [facility] Sodium [Moles/Vol] 142 mmol/L 136-145 [facility] Urea nitrogen [Mass/Vol] 10.0 mg/dL 718 [facility] WBC (Bld) [#/Vol] 7.3 10*3/uL 4.0-11.0 [facility] CT CHEST PULMONARY EMBOLISM W CONTRASTon [...] Beau Nunn MD 09/26/22 Final result Normal [facility] BMPon 09-26-2022 Anion gap [Moles/Vol] 11 mmol/L 9 - 17 mmol/L [facility] Calcium [Mass/Vol] 9.6 mg/dL 8.6 - 10. 4 mg/dL [facility] Chloride [Moles/Vol] 106 mmol/L 98 - 10 7 mmol/L [facility] CO2 [Moles/Vol] 22 mmol/L 20 - 31 mmol/L [facility] Creatinine [Mass/Vol] 0.59 mg/dL 0.50 - 0.90 mg/dL [facility] GFR/1.73 sq M.predicted MDRD (S/P/Bld) [Vol rate/Area] - PINF [facility] Comment on above: These results are [...] 124 mg/dL High 70 - 99 mg/dL [facility] Interpretation and review of laboratory results Abnormal [facility] Potassium [Moles/Vol] 3.6 mmol/L Low 3.7 - 5.3 mmol/L [facility] Sodium [Moles/Vol] 139 mmol/L 135 - 144 mmol/L [facility] Urea nitrogen [Mass/Vol] 7 mg/dL 6 - 20 mg/dL [facility] Basic Metabolic Profon 09-26 Anion gap [Moles/Vol] 11 mmol/L Normal 9-17 [facility] Comment on above: Performed By: #### D CHAPINCITO, BMP, HCG, CDP, TSH, MG, TROPI #### [facility] [place] [address] Coke Drawer: Chaitanya Mtz MD Calcium [Mass/Vol] 9.6 mg/dL Normal 8.6-10.4 [facility] Comment on above: Performed By: #### D CHAPINCITO, BMP, HCG, CDP, TSH, MG, TROPI #### [facility] [place] [address] Coke Drawer: Chaitanya Mtz MD Chloride [Moles/Vol] 106 mmol/L Normal 98-107 [facility] Comment on above: Performed By: #### D CHAPINCITO, BMP, HCG, CDP, TSH, MG, TROPI #### [facility] [place], [place] [address] [employer] Drawer: Chaitanya Mtz MD CO2 [Moles/Vol] 22 mmol/L Normal 20-31 [facility] Comment on above: Performed By: #### D CHAPINCITO, BMP, HCG, CDP, TSH, MG, TROPI #### [address] [id number] [employer]: Chaitanya Mtz MD Creatinine [Mass/Vol] 0.59 mg/dL Normal 0.50-0.90 [facility] Comment on above: Performed By: #### D CHAPINCITO, BMP, HCG, CDP, TSH, MG, TROPI #### [address] [address] [employer] Drawer: Chaitanya Mtz MD GFR/1.73 sq M.predicted among non-blacks MDRD (S/P/Bld) [Vol rate/Area] mL/min/{1.73_m2} Normal >60 [facility] Comment on above: Result Comment: These [...] BMP, HCG, CDP, TSH, MG, TROPI #### [address] [id number] [employer]: Chaitanya Mtz MD Glucose [Mass/Vol] 124 mg/dL High 70-99 [facility] Comment on above: Performed By: #### D CHAPINCITO, BMP, HCG, CDP, TSH, MG, TROPI #### [facility] [address] [place] [address] Coke Drawer: Chaitanya Mtz MD Potassium [Moles/Vol] 3.6 mmol/L Low 3.7-5.3 [facility] Comment on above: Performed By: #### D CHAPINCITO, BMP, HCG, CDP, TSH, MG, TROPI #### [facility] [place], [place] [id number] [employer] Drawer: Chaitanya Mtz MD Sodium [Moles/Vol] 139 mmol/L Normal 135-144 [facility] Comment on above: Performed By: #### D CHAPINCITO, BMP, HCG, CDP, TSH, MG, TROPI #### [facility] [place], [place] [id number] Coke Drawer: Chaitanya Mtz MD Urea nitrogen [Mass/Vol] 7 mg/dL Normal 6-20 [facility] Comment on above: Performed By: #### D CHAPINCITO, BMP, HCG, CDP, TSH, MG, TROPI #### [facility] [address] [place] [address] [phone] [employer]er: Chaitanya Mtz MD CBC with Auto Differentialon 09-26-2022 Absolute Eos # 0.09 [facility] Absolute Immature Granulocyte [facility] Absolute Lymph # 2.78 [facility] Absolute Dickey # 0.38 [facility] Basophils (Bld) [#/Vol] 0.03 10*3/uL [facility] Interpretation and review of laboratory results Abnormal [facility] NRBC Automated 0.0 0.0 per 100 WBC [facility] Platelet distribution width (Bld) [Ratio] 14.6 % High 11.8 - 14.4 % [facility] RBC (Bld) [#/Vol] ANISOCYTOSIS PRESENT [facility] Segmented neutrophils/100 WBC (Bld) 49 % 36 - 65 % [facility] Segs Absolute 3.16 [facility] CBC with Diffon 09-26-2022 Abs. Basophil 0.03 k/uL Normal 0.00-0.20 [facility] Comment on above: Performed By: #### D CHAPINCITO, BMP, HCG, CDP, TSH, MG, TROPI #### [address] [address] Co[employer] Drawer: Chaitanya Mtz MD Abs.Imm.Granulocyte <0.03 Normal 0.00-0.30 [facility] Comment on above: Performed By: #### D CHAPINCITO, BMP, HCG, CDP, TSH, MG, TROPI #### [address] [address] Co[employer] Drawer: Chaitanya Mtz MD Abs.Neutrophil (Seg) 3.16 k/uL Normal 1.50-8.10 [facility] Comment on above: Performed By: #### D CHAPINCITO, BMP, HCG, CDP, TSH, MG, TROPI #### [address] [address] Coke Drawer: Chaitanya Mtz MD Eosinophils (Bld) [#/Vol] 0.09 10*3/uL Normal 0.00-0.44 [facility] Comment on above: Performed By: #### D CHAPINCITO, BMP, HCG, CDP, TSH, MG, TROPI #### [address] [address] Co[employer] Drawer: Chaitanya Mtz MD Erythrocyte distribution width (RBC) [Ratio] 14.6 % High 11.8-14.4 [facility] Comment on above: Performed By: #### D CHAPINCITO, BMP, HCG, CDP, TSH, MG, TROPI #### [address] [address] Co[employer] Drawer: Chaitanya Mtz MD Lymphocytes (Bld) [#/Vol] 2.78 10*3/uL Normal 1.10-3.70 [facility] Comment on above: Performed By: #### D CHAPINCITO, BMP, HCG, CDP, TSH, MG, TROPI #### [facility] [address] [place] [id number] Co[employer] Drawer: Chaitanya Mtz MD Monocytes (Bld) [#/Vol] 0.38 10*3/uL Normal 0.10-1.20 [facility] Comment on above: Performed By: #### D CHAPINCITO, BMP, HCG, CDP, TSH, MG, TROPI #### [facility] [address] [place] [address] Co[employer] Drawer: Chaitanya Mtz MD Neutrophil (Seg) 49 % Normal 36-65 [facility] Comment on above: Performed By: #### D CHAPINCITO, BMP, HCG, CDP, TSH, MG, TROPI #### [address] [address] Coke Drawer: Chaitanya Mtz MD NRBC Automated 0.0 per 100 WBC Normal 0.0 [facility] Comment on above: Performed By: #### D CHAPINCITO, BMP, HCG, CDP, TSH, MG, TROPI #### [facility] [address] [place] [phone] Co[employer] Drawer: Chaitnaya Mtz MD RBC morphology finding Nom (Bld) ANISOCYTOSIS PRESENT Normal [facility] Comment on above: Performed By: #### D CHAPINCITO, BMP, HCG, CDP, TSH, MG, TROPI #### [facility] [address] [place] [phone] Co[employer] Drawer: Chaitanya Mtz MD Basophils/100 WBC (Bld) 1 % Normal 0-2 [facility] Comment on above: Performed By: #### D CHAPINCITO, BMP, HCG, CDP, TSH, MG, TROPI #### [facility] [address] [place] [phone] Co[employer] Drawer: Chaitanya Mtz MD Eosinophils/100 WBC (Bld) 1 % Normal 1-4 [facility] Comment on above: Performed By: #### D CHAPINCITO, BMP, HCG, CDP, TSH, MG, TROPI #### [facility] [address] [place] [phone] Coke Drawer: Chaitanya Mtz MD Hematocrit (Bld) [Volume fraction] 34.4 % Low 36.3-47.1 [facility] Comment on above: Performed By: #### D CHAPINCITO, BMP, HCG, CDP, TSH, MG, TROPI #### [facility] [address] [place] [phone] Co[employer] Drawer: Chaitanya Mtz MD Hemoglobin (Bld) [Mass/Vol] 10.6 g/dL Low 11.9-15.1 [facility] Comment on above: Performed By: #### D CHAPINCITO, BMP, HCG, CDP, TSH, MG, TROPI #### [facility] [address] [place] [phone] Coke Drawer: Chaitanya Mtz MD Immature granulocytes/100 WBC (Bld) 0 % Normal 0 [facility] Comment on above: Performed By: #### D CHAPINCITO, BMP, HCG, CDP, TSH, MG, TROPI #### [facility] [address] [place] [phone] Coke Drawer: Chaitanya Mtz MD Lymphocytes/100 WBC (Bld) 43 % Normal 24-43 [facility] Comment on above: Performed By: #### D CHAPINCITO, BMP, HCG, CDP, TSH, MG, TROPI #### [facility] [address] [place] [id number] Coke Drawer: Chaitanya Mtz MD MCH (RBC) [Entitic mass] 26.5 pg Normal 25.2-33.5 [facility] Comment on above: Performed By: #### D CHAPINCITO, BMP, HCG, CDP, TSH, MG, TROPI #### [facility] [address] [place] [address] [phone] Co[employer] Drawer: Chaitanya Mtz MD MCHC (RBC) [Mass/Vol] 30.8 g/dL Normal 28.4-34.8 [facility] Comment on above: Performed By: #### D CHAPINCITO, BMP, HCG, CDP, TSH, MG, TROPI #### [facility] [address] [place] [phone] Coke Drawer: Chaitanya Mtz MD MCV (RBC) [Entitic vol] 86.0 fL Normal 82.6-102.9 [facility] Comment on above: Performed By: #### D CHAPINCITO, BMP, HCG, CDP, TSH, MG, TROPI #### [facility] [address] [place] [id number] Co[employer] Drawer: Chaitanya Mtz MD Monocytes/100 WBC (Bld) 6 % Normal 3-12 [facility] Comment on above: Performed By: #### D CHAPINCITO, BMP, HCG, CDP, TSH, MG, TROPI #### [facility] [address] [place] [phone] Coke Drawer: Chaitanya Mtz MD Platelet mean volume (Bld) [Entitic vol] 11.5 fL Normal 8.1-13.5 [facility] Comment on above: Performed By: #### D CHAPINCITO, BMP, HCG, CDP, TSH, MG, TROPI #### [facility] [address] [place] [phone] Coke Drawer: Chaitanya Mtz MD Platelets (Bld) [#/Vol] 201 10*3/uL Normal 138-453 [facility] Comment on above: Performed By: #### D CHAPINCITO, BMP, HCG, CDP, TSH, MG, TROPI #### [facility] [address] [place] [phone] Co[employer] Drawer: Chaitanya Mtz MD RBC (Bld) [#/Vol] 4.00 10*6/uL Normal 3.95-5.11 [facility] Comment on above: Performed By: #### D CHAPINCITO, BMP, HCG, CDP, TSH, MG, TROPI #### [facility] [address] [place] [address] Coke Drawer: Chaitanya Mtz MD WBC (Bld) [#/Vol] 6.5 10*3/uL Normal 3.5-11.3 [facility] Comment on above: Performed By: #### D CHAPINCITO, BMP, HCG, CDP, TSH, MG, TROPI #### [facility] [address] [place] [address] Coke Drawer: Chaitanya Mtz MD CT CHEST PULMONARY EMBOLISM W CONTRASTon 09-26-2022 No evidence of pulmonary embolism or acute pulmonary abnormality. [facility] EXAMINATION: CTA OF THE CHEST [...] No acute bone or soft tissue abnormality. [facility] Beau Nunn MD - 09/26/2022 [...] of pulmonary embolism or acute pulmonary abnormality. [employer] Phone: Radiology Study observation (narrative) [employer] Phone: CT CHEST PULMONARY EMBOLISM W CONTRASTOrdered By: Beau Nunn on 09-26-2022 [employer] Phone: D-Dimer Teston 09-26-2022 D-Dimer Test 0.50 mg/L FEU Normal [facility] Comment on above: Result Comment: When [...] BMP, HCG, CDP, TSH, MG, TROPI #### [facility] [place] [address] Coke Drawer: Chaitanya Mtz MD D-Dimer, Quantitativeon 08-31 Fibrin D-dimer FEU IA (Bld) [Mass/Vol] 0.50 ug/mL mg/L FEU [facility] Comment on above: When combined with a [...] more prevalent in patients with distal DVT. [facility] HCG Qualitative, Serumon hCG Qual Negative NEGATIVE [facility] Comment on above: Specimens with hCG l evels near the threshold of the test (25 mIU/mL) may give a negative or indeterminate result. In such cases, another test should be performed with a new specimen in 48-72 hours. If early is suspected clinically in this setting, correlation with quantitative serum b-hCG level is suggested. [facility] has confirmed the use of plasma for this test. This has not been cleared or approved by the U.S. Food and Drug Administration. The FDA has determined that such clearance is not necessary. [facility] [employer] HCG Screen, Bloodon 09-26-19 23 HCG Screen, Blood Negative Normal NEG [facility] Comment on above: Result Comment: Spec imens with hCG levels near the threshold of the test (25 mIU/mL) may give a negative or indeterminate result. In such cases, another test should be performed with a new specimen in 48-72 hours. If early is suspected clinically in this setting, correlation with quantitative serum b-hCG level is suggested. [employer] has confirmed the use of plasma for this test. This has not been cleared or approved by the U.S. Food and Drug Administration. The FDA has determined that such clearance is not necessary. Performed By: #### D CHAPINCITO, BMP, HCG, CDP, TSH, MG, TROPI #### [facility] [address] [place] [id number] Coke Drawer: Chaitanya Mtz MD Magnesiumon 09-26-2022 Magnesium [Mass/Vol] 2.0 mg/dL Normal 1.6-2.6 [facility] Comment on above: Performed By: #### D CHAPINCITO, BMP, HCG, CDP, TSH, MG, TROPI #### [facility] [place] [address] Coke Drawer: Chaitanya Mtz MD Magnesium [Mass/Vol] 2.0 mg/dL 1.6 - 2 .6 mg/dL [facility] [employer] No Panel Informationon 09-26 [facility] [employer] [employer] [employer] POC Glucose Fingerstickon Glucose [Mass/Vol] 116 mg/dL High 65 - 105 mg/dL [facility] Interpretation and review of laboratory results Abnormal [facility] TSHon 09-26-2022 TSH Qn 0.37 m[IU]/L [facility] Thyroid Stim. Horm.on 2022 Thyroid Stim. Horm. 0.37 uIU/mL Normal 0.30-5.00 [facility] Comment on above: Performed By: #### D CHAPINCITO, BMP, HCG, CDP, TSH, MG, TROPI #### [facility] [address] [place], [place] [phone] Coke Drawer: Chaitanya Mtz MD Troponinon 09-26-2022 Troponin, High Sens <6 Normal 0-14 [facility] Comment on above: Result Comment: High Sensitivity Troponin values cannot be compared with other Troponin methodologies. Performed By: #### D CHAPINCITO, BMP, HCG, CDP, TSH, MG, TROPI #### [facility] [place] [address] Coke Drawer: Chaitanya Mtz MD Troponin I.cardiac DL <= 0.01 ng/mL [Mass/Vol] ng/L 0 - 14 ng/L [facility] Comment on above: High Sensitivity Tro ponin values cannot be compared with other Troponin methodologies. Laboratory studies (set)on 0 09-25-2022 Troponin 3.7 pg/mL 0-53.7 [facility] Comment on above: Troponin Reference R flip: Male: 0-78.5 pg/mL (ng/L) Female: 0-53.7 pg/mL (ng/L) Note: The new high sensitivity Troponin units are in pg/mL (ng/L) Albumin [Mass/Vol] 3.7 g/dL 3.4-5.0 [facility] Albumin/Globulin [Mass ratio] 1.0 {ratio} Low 1.1-1.8 [facility] ALP [Catalytic activity/Vol] 86 U/L 45-117 [facility] ALT [Catalytic activity/Vol] 18 U/L 12-78 [facility] Anion gap [Moles/Vol] 5.9 mmol/L Low 11-23 [facility] Appearance (U) CLEAR [facility] AST [Catalytic activity/Vol] 10 U/L Low 15-37 [facility] Basophils (Bld) [#/Vol] 0.0 10*3/uL 0-0.1 [facility] Basophils/100 WBC (Bld) 0.40 % 0-2 [facility] Bilirubin [Mass/Vol] 0.4 mg/dL 0.2-1.0 [facility] Bilirubin Ql (U) NEGATIVE [facility] Calcium [Mass/Vol] 8.8 mg/dL 8.5-10.1 [facility] Chloride [Moles/Vol] 110 mmol/L High 98-107 [facility] CK [Catalytic activity/Vol] 70 U/L 26-192 [facility] CO2 [Moles/Vol] 26.0 mmol/L 21-32 [facility] Color (U) [facility] Creatinine [Mass/Vol] 0.70 mg/dL 0.55-1.02 [facility] D-Dimer, Quantitative 0.45 mg/L FEU 0.0-0.59 [facility] Comment on above: The cut-off [...] therapy. Eosinophils (Bld) [#/Vol] 0.1 10*3/uL 0.0-1.80 [facility] Eosinophils/100 WBC (Bld) 2.3 % 0-8 [facility] Erythrocyte distribution width (RBC) [Ratio] 15.9 % High 11.0-15.5 [facility] Estimated GFR () [facility] Comment on above: THE NORMAL LEVEL OF GFR VARIES ACCORDING TO AGE, SEX, AND BODY SIZE. A GFR LEVEL OF LESS THAN 60 ML/MIN REPRESENTS LOSS OF THE ADULT LEVEL OF NORMAL KIDNEY FUNCTION. GFR/1.73 sq M.predicted among non-blacks MDRD (S/P/Bld) [Vol rate/Area] [facility] Globulin (S) [Mass/Vol] 3.5 g/dL 2.5-4.6 [facility] Glucose [Mass/Vol] 116 mg/dL High 70-100 [facility] Glucose Ql (U) NEGATIVE [facility] Granulocytes (Bld) [#/Vol] 3.0 10*3/uL 2.2-9.1 [facility] Granulocytes/100 WBC (Bld) 50.3 % 42-80 [facility] HCG Qn (U) [facility] Hematocrit (Bld) [Volume fraction] 32.0 % Low 37.0-47.0 [facility] Hemoglobin (Bld) [Mass/Vol] 10.4 g/dL Low 12.0-16.0 [facility] Hemoglobin Ql (U) NEGATIVE [facility] Ketones Ql (U) NEGATIVE [facility] Leukocyte esterase Test strip Ql (U) NEGATIVE [facility] Lymphocytes (Bld) [#/Vol] 2.3 10*3/uL 1.0-4.0 [facility] Lymphocytes/100 WBC (Bld) 38.5 % 16-48 [facility] MCH (RBC) [Entitic mass] 26.8 pg 26.0-32.0 [facility] MCHC (RBC) [Mass/Vol] 32.5 g/dL 31.0-36.0 [facility] MCV (RBC) [Entitic vol] 82.2 fL 80-97 [facility] Monocyte distribution width Auto (Bld) [Entitic vol] 17.39 0-20 [facility] Comment on above: For ED adult patient s suspected of sepsis, MDW<=20.0 does not rule out sepsis or risk of sepsis Monocytes (Bld) [#/Vol] 0.5 10*3/uL 0.1-1.7 [facility] Monocytes/100 WBC (Bld) 8.5 % 3-9 [facility] Nitrite Ql (U) NEGATIVE [facility] pH (U) 6.0 [pH] 5.0-9.0 [facility] Platelet mean volume (Bld) [Entitic vol] 9.4 fL 6.6-10.5 [facility] Platelets (Bld) [#/Vol] 185 10*3/uL 140-450 [facility] Potassium [Moles/Vol] 4.1 mmol/L 3.5-5.1 [facility] Protein [Mass/Vol] 7.2 g/dL 6.0-8.3 [facility] Protein Ql (U) NEGATIVE [facility] RBC (Bld) [#/Vol] 3.89 10*6/uL Low 4.20-5.50 [facility] Sodium [Moles/Vol] 138 mmol/L 136-145 [facility] Specific gravity (U) [Rel density] 1.003-1.035 [facility] Urea nitrogen [Mass/Vol] 8.0 mg/dL 7-18 [facility] Urobilinogen Ql (U) 0.2 E.U./dL <=1.0 [facility] WBC (Bld) [#/Vol] 5.9 10*3/uL 4.0-11.0 [facility] LABORATORYOrdered By: Rupali Jones on 03-08-2022 Blood Glucose Testing Reason Routine (03/08/22 7:11 AM) [facility] Glucose [Mass/Vol] 158 mg/dL Invalid Interpretation Code 70 - 110 mg/dL [facility] LABORATORYOrdered By: Nelson Tran on 03-07-2022 Glucose [Mass/Vol] 110 mg/dL Invalid Interpretation Code 70 - 110 mg/dL [facility] Blood Glucose Testing Reason Routine (03/07/22 6:15 PM) [facility] Glucose [Mass/Vol] 210 mg/dL Invalid Interpretation Code 70 - 110 mg/dL [facility] LABORATORYOrdered By: Linh Mix on 2022 Blood Glucose Testing Reason Routine (03/06/22 8:45 PM) [facility] LABORATORYOrdered By: SYSTEM SYSTEM on 2022 Albumin [...] sugar, Notify physician 4 (03/06/22 8:45 PM) [facility] LABORATORYOrdered By: Abigail marie on 03-05-2022 Drug [...] Comment on above: Result Comment: [place] s [id number] LABORATORYOrdered By: Nancy del rio on 03-05-2022 [...] Invalid Interpretation Code 70 - 110 mg/dL [facility] LABORATORYOrdered By: Nancy senior on 01-17-2022 Glucose [Mass/Vol] 155 mg/dL Invalid Interpretation Code 70 - 110 mg/dL [facility] Glucose [Mass/Vol] 195 mg/dL Invalid Interpretation Code 70 - 110 mg/dL [facility] LABORATORYOrdered By: Trisha Pena on 01-17-2022 ABO [...] review and authentication has not occurred. Normal [facility] ER PHYSICIAN ASSESSMENT RECORDS : FlexChartData Event Time: 12/27/2021 01:45 CMCA Status: Signed [facility] [place] [[id number]] Mid-Level Chart (V2b) / 1995 Chart created at 12/27/2021 01:33 by [employer] [place] Chart closed at 12/27/2021 01:57 Entry in Emergency Department at 12/26/2021 22:16, departure at 12/27/2021 02:09 Patient Name: [place]y [place] Record Number: [id number] Date: 12/27/2021 01:33 Entered Department at: 12/26/2021 22:16 Patient Seen at: 12/27/2021 00:38 Historian: Patient PCP: [facility] Chief Complaint:RIGHT CALF PAIN, 29 WEEKS /PT [...] the area. She denies any additional [facility] PATIENT NAME: LUÍS MESAKI J [address] [facility] [address] [place] MEDICAL REC #: [id number] [place] [id number] EMERGENCY DEPARTMENT REPORT EMERGENCY DEPARTMENT PHYSICIAN symptoms including fever, chills, chest pain, shortness of breath, nausea, vomiting. She is currently 29 weeks . She has no complaints regarding the itself. She sees [facility] for her . She has a [...] and Normal Memory/Judgment Medical Decision Making [facility] PATIENT NAME: BETSY MESA J [address] [facility] [address] [place] MEDICAL REC #: [id number] [place] [address] EMERGENCY DEPARTMENT REPORT EMERGENCY DEPARTMENT PHYSICIAN As [...] own or she can follow-up with her [employer]PER[employer] to have one scheduled for her. I am more (more content not included)... Normal [facility] LABORATORYOrdered By: Whitney Chand on 05-18-2021 [...] definite cause of disease. Laboratories within the [facility] and its territories are required to report [...] management decisions. This assay was developed by [employer] and distributed under an Emergency Use Authorization (EUA) granted by the FDA for the qualitative detection of SARS-CoV-2 nucleic acid. Provider and patient fact sheets can be found at https://www.[facility].gov/ms nick/870141/download and https://www.[facility].gov/ms nick/890770/download. Respiratory Pathogens PCR Panel. _ Expected Result: Not Detected The [employer] Upper Respiratory Pathogens PCR Panel can detect [...] management decisions. This assay was developed by [employer] and distributed under an Emergency Use Authorization (EUA) granted by the FDA for the qualitative detection of SARS-CoV-2 nucleic acid. Provider and patient fact sheets can be found at https://www.[facility].gov/ms nick/595508/download and https://www.[facility].gov/ms nick/272357/download. Normal [facility] Comment on above: Performed By: #### B FRP2 #### [address] [id number] Chlamydia and GC PCR Panelon 03-16-2021 Chlamydia [...] as suspected child abuse or molestation. Normal [facility] Comment on above: Performed By: #### C TN #### [address] [phone] CR Chest Portableon 03-15-20 21 CR Chest Portable Patient Name: BETSY MESA Diagnostic Radiology ACCESSION EXAM DATE/TIME PROCEDURE ORDERING PROVIDER [id number] 03/15/2021 22:23 EDT CR Chest Portable AMADOR CARLITOS CPT code 37679 Reason For Exam (CR Chest Portable) cough [...] WENDELL Transcribed Date and Time: 03/15/2021 10:26 [facility] ED Provider Noteon ED Provider Note I was not involved i n this patient's care TESS Jeffers 03/15/21 2781 [facility] ED Provider Note [facility] EMERGENCY DEPT EMERGENCY [...] Gatherings with Friends and Family: ? Attends [employer] Services: ? Active Member of Clubs or [...] nursing note reviewed. Exam conducted with a office support present. Constitutional: General: She is not in [...] No t (more content not included)... Normal [facility] XR CHEST PORTABLEOrdered By: Carlitos English on 03-15-2021 Patient Name: BETSY MESA Diagnostic Radiology ACCESSION EXAM DATE/TIME PROCEDURE ORDERING PROVIDER [id number] 03/15/2021 22:23 EDT CR Chest Portable CARLITOS ENGLISH CPT code 73495 Reason For Exam (CR Chest Portable) cough [...] WENDELL Transcribed Date and Time: 03/15/2021 10:26 [facility] Work Phone: [facility] Incoming Radiology Results From [facility] - 03/15/2021 10:28 PM EDT Patient Name: BETSY MESA Diagnostic Radiology ACCESSION EXAM DATE/TIME PROCEDURE ORDERING PROVIDER [id number] 03/15/2021 22:23 EDT CR Chest Portable CARLITOS ENGLISH CPT code 22113 Reason For Exam (CR Chest Portable) cough [...] WENDELL Transcribed Date and Time: 03/15/2021 10:26 [facility] Work Phone: [facility] Work Phone: Basic Metabolic Panelon Calcium [Mass/Vol] 9.5 mg/dL Normal 8.4-10.4 [facility] Comment on above: Performed By: #### H EMDF, TROPN, BMP3, QWAL2 #### [address] [place], [place] Anion gap [Moles/Vol] 6 mmol/L Normal 3-13 [facility] Comment on above: Performed By: #### H EMDF, TROPN, BMP3, QWAL2 #### [place] [address] [place], [place] CO2 [Moles/Vol] 23 mmol/L Normal 22-30 [facility] Comment on above: Performed By: #### H EMDF, TROPN, BMP3, QWAL2 #### [place] [address] [address] [place], [place] Creatinine [Mass/Vol] 0.72 mg/dL Normal 0.52-1.25 [facility] Comment on above: Performed By: #### H EMDF, TROPN, BMP3, QWAL2 #### [place] [address] [address] [place], [place] eGFR OTHER > 90.0 Normal >60 [facility] Comment on above: Result Comment: KDIG O [...] EMDF, TROPN, BMP3, QWAL2 #### [place] [address] [place] [address] GFR/1.73 sq M.predicted among blacks MDRD (S/P/Bld) [Vol rate/Area] mL/min/{1.73_m2} Normal >60 [facility] Comment on above: Performed By: #### H EMDF, TROPN, BMP3, QWAL2 #### [place] [address] [place] [address] Glucose [Mass/Vol] 145 mg/dL High 70-100 [facility] Comment on above: Performed By: #### H EMDF, TROPN, BMP3, QWAL2 #### [place] [address] [place] [address] Urea nitrogen [Mass/Vol] 9 mg/dL Normal 7-20 [facility] Comment on above: Performed By: #### H EMDF, TROPN, BMP3, QWAL2 #### [place] [address] [place] [address] Chloride [Moles/Vol] 108 mmol/L High 98-107 [facility] Comment on above: Performed By: #### H EMDF, TROPN, BMP3, QWAL2 #### [place] [address] [place] [address] Potassium [Moles/Vol] 3.7 mmol/L Normal 3.5-5.1 [facility] Comment on above: Performed By: #### H EMDF, TROPN, BMP3, QWAL2 #### [place] [address] [place] [address] Sodium [Moles/Vol] 138 mmol/L Normal 135-145 [facility] Comment on above: Performed By: #### H EMDF, TROPN, BMP3, QWAL2 #### [employer] [address] [place] [phone] Basic Metabolic PanelOrdered By: Sherin Dawkins on 03-07-2021 Anion gap [Moles/Vol] 6 mmol/L 3 - 13 mmol/L [facility] Work Phone: Calcium [Mass/Vol] 9.5 mg/dL 8.4 - 10. 4 mg/dL [facility] Work Phone: Chloride [Moles/Vol] 108 mmol/L High 98 - 10 7 mmol/L [facility] Work Phone: CO2 [Moles/Vol] 23 mmol/L 22 - 30 mmol/L [facility] Work Phone: Creatinine [Mass/Vol] 0.72 mg/dL 0.52 - 1.25 mg/dL [facility] Work Phone: EGFR IF NonAfrican Iranian >90.0 >60 mL/min [facility] Work Phone: Comment on above: KDIGO guidelines [...] 145 mg/dL High 70 - 100 mg/dL [facility] Work Phone: Interpretation and review of laboratory results Abnormal [facility] Work Phone: Potassium [Moles/Vol] 3.7 mmol/L 3.5 - 5.1 mmol/L [facility] Work Phone: Sodium [Moles/Vol] 138 mmol/L 135 - 145 mmol/L [facility] Work Phone: Urea nitrogen (BldV) [Mass/Vol] 9 mg/dL 7 - 20 mg/dL [facility] Work Phone: Test Performed by [employer], [address] [place] [address] [facility] Work Phone: [facility] Work Phone: Complete Urinalysison 2020 Amorphous Crystal Few Abnormal Negative [facility] Comment on above: Result Comment: . Performed By: #### C UA2 #### [employer] [facility] [address] [place], [place] Appearance (U) Turbid Abnormal Clear [facility] Comment on above: Result Comment: . Performed By: #### C UA2 #### [employer] [facility] [place], [place] Bacteria Moderate Abnormal Negative [facility] Comment on above: Result Comment: . Performed By: #### C UA2 #### [employer] [facility] [place], [place] Bilirubin,Urine Negative Normal Negative [facility] Comment on above: Result Comment: . Performed By: #### C UA2 #### [employer] [facility] [place], [place] Cast, Hyaline Negative Normal Negative [facility] Comment on above: Result Comment: . Performed By: #### C UA2 #### [employer] [facility] [place], [place] Color (U) Yellow Normal Lt. Yellow [facility] Comment on above: Result Comment: . Performed By: #### C UA2 #### [employer] [address] [place], [place] Glucose Ql (U) Normal Normal Normal (<70) [facility] Comment on above: Result Comment: . Performed By: #### C UA2 #### [place] [address] [address] [place], [place] Ketone,Urine 10 mg/dL Abnormal Negative [facility] Comment on above: Result Comment: . Performed By: #### C UA2 #### [place] [address] [address] [place], [place] Leukocytes,Urine 500 Robin/uL Abnormal Negative [facility] Comment on above: Result Comment: . Performed By: #### C UA2 #### [place] [address] [address] [place], [place] Mucous Threads Many Abnormal Negative [facility] Comment on above: Result Comment: . Performed By: #### C UA2 #### [place] [address] [address] [place], [place] Nitrites,Urine Negative Normal Negative [facility] Comment on above: Result Comment: . Performed By: #### C UA2 #### [place] [address] [address] [place], [place] Occult Blood,Urine Negative Normal Negative [facility] Comment on above: Result Comment: . Performed By: #### C UA2 #### [place] [address] [address] [place], [place] pH,Urine 6.0 Normal 5.0-8.0 [facility] Comment on above: Result Comment: . Performed By: #### C UA2 #### [place] [address] [address] [place], [place] Protein (U) [Mass/Vol] 20 mg/dL Abnormal Negative [facility] Comment on above: Result Comment: . Performed By: #### C UA2 #### [place] [address] [address] [place], [place] RBC, Urine 26 - 50 Abnormal 0-2 [facility] Comment on above: Result Comment: . Performed By: #### C UA2 #### [place] [address] [address] [place], [place] Specific [place],Urine 1.015 Normal 1.005 - 1.030 [facility] Comment on above: Result Comment: . Performed By: #### C UA2 #### [facility] [address] [place], [place] Squamous Epithelial 26 - 50 Abnormal 3-5 [facility] Comment on above: Result Comment: . Performed By: #### C UA2 #### [facility] [address] [place], [place] Urobilinogen,Urine 2 mg/dL Abnormal Normal (0-1) [facility] Comment on above: Result Comment: . Performed By: #### C UA2 #### [facility] [address] [place], [place] WBC, Urine 26 - 50 Abnormal 0-5 [facility] Comment on above: Result Comment: . Performed By: #### C UA2 #### [place] [address] [address] [place], [place] ED Provider Noteon ED Provider Note [facility] EMERGENCY DEPT EMERGENCY DEPARTMENT ENCOUNTER Pt Name: [...] Gatherings with Friends and Family: ? Attends [employer] Services: ? Active Member of Clubs or [...] the Emergency (more content not included)... Normal [employer] HCG Qualitative, SerumOrdere d By: Sherin Dawkins on 03-07-2021 hCG Qual Negative [employer] Work Phone: Comment on above: Reference Range: NEG ATIVE Effective 10/10/2019, the reference interval for the qualitative test has been updated. This test detects hCG at concentrations of 10 mIU/L or greater in serum. Test Performed by [employer], [address] [place] [address] [employer] Work Phone: [employer] Work Phone: Hemogram (CBC) w/Auto DiffOr dered By: Sherin Dawkins on 03-07-2021 Absolute Baso # 0.0 10*3/uL 0.0 - 0.2 10*3/uL [employer] Work Phone: Absolute Neut # 4.4 10*3/uL 1.8 - 7.0 10*3/uL [employer] Work Phone: Basophils/100 WBC (Bld) 0.5 % 0.0 - 2.0 % [facility] Work Phone: Eosinophils (Bld) [#/Vol] 0.0 10*3/uL 0.0 - 0.5 10*3/uL [facility] Work Phone: Eosinophils/100 WBC (Bld) 0.5 % Low 1.0 - 6.0 % [facility] Work Phone: Granulocytes/100 WBC (Bld) 56.3 % 40.0 - 80.0 % [facility] Work Phone: Hematocrit (Bld) [Volume fraction] 40.6 % 35.0 - 47.0 % [facility] Work Phone: Hemoglobin.gastrointes tinal spec 1 Ql (Stl) 13.6 g/dL 11.7 - 16.0 g/dL [facility] Work Phone: Interpretation and review of laboratory results Abnormal [facility] Work Phone: Lymphocytes (Bld) [#/Vol] 2.9 10*3/uL 1.0 - 4.3 10*3/uL [facility] Work Phone: Lymphocytes/100 WBC (Bld) 36.8 % 20.0 - 40.0 % [facility] Work Phone: MCH (RBC) [Entitic mass] 30.0 pg 26.0 - 34.0 pg [facility] Work Phone: MCHC (RBC) [Mass/Vol] 33.6 % 32.0 - 36.0 % [facility] Work Phone: MCV (RBC) [Entitic vol] 89.4 fL 79.0 - 98.0 fL [facility] Work Phone: Monocytes (Bld) [#/Vol] 0.5 10*3/uL 0.0 - 0.8 10*3/uL [facility] Work Phone: Monocytes/100 WBC (Bld) 5.9 % 2.0 - 10.0 % [employer] Work Phone: Platelet distribution width (Bld) [Ratio] 14.3 % 11.5 - 14.5 % [employer] Work Phone: Platelet mean volume (Bld) [Entitic vol] 10.2 fL 7.4 - 10.4 fL [employer] Work Phone: Platelets (Bld) [#/Vol] 183 10*3/uL 140 - 440 10*3/uL [employer] Work Phone: RBC (Bld) [#/Vol] 4.54 10*6/uL 3.80 - 5.2 0 10*6/uL [employer] Work Phone: WBC (Bld) [#/Vol] 7.8 10*3/uL 3.6 - 10.7 10*3/uL [employer] Work Phone: Test Performed by [facility] [employer], [address] [place] [id number] [facility] Work Phone: [employer] Work Phone: Hemogram w/ Autodiffon 03-07 Abs Baso Cnt 0.0 10*3/uL Normal 0.0-0.2 [facility] Comment on above: Performed By: #### H EMDF, TROPN, BMP3, QWAL2 #### [facility] [employer] [address] [place] [phone] Abs Neutrophile Cnt 4.4 10*3/uL Normal 1.8-7.0 [facility] Comment on above: Performed By: #### H EMDF, TROPN, BMP3, QWAL2 #### [facility] [address] [place] [phone] Basophils/100 WBC (Bld) 0.5 % Normal 0.0-2.0 [facility] Comment on above: Performed By: #### H EMDF, TROPN, BMP3, QWAL2 #### [facility] [employer] [address] [place] [phone] Eosinophils (Bld) [#/Vol] 0.0 10*3/uL Normal 0.0-0.5 [facility] Comment on above: Performed By: #### H EMDF, TROPN, BMP3, QWAL2 #### [place] [address] [place], [place] Eosinophils/100 WBC (Bld) 0.5 % Low 1.0-6.0 [facility] Comment on above: Performed By: #### H EMDF, TROPN, BMP3, QWAL2 #### [address] Erythrocyte distribution width (RBC) [Ratio] 14.3 % Normal 11.5-14.5 [facility] Comment on above: Performed By: #### H EMDF, TROPN, BMP3, QWAL2 #### [address] Granulocytes/100 WBC (Bld) 56.3 % Normal 40.0-80.0 [facility] Comment on above: Performed By: #### H EMDF, TROPN, BMP3, QWAL2 #### [address] Hematocrit (Bld) [Volume fraction] 40.6 % Normal 35.0-47.0 [facility] Comment on above: Performed By: #### H EMDF, TROPN, BMP3, QWAL2 #### [place] [address] [place], [place] Hemoglobin (Bld) [Mass/Vol] 13.6 g/dL Normal 11.7-16.0 [facility] Comment on above: Performed By: #### H EMDF, TROPN, BMP3, QWAL2 #### [address] Lymphocytes (Bld) [#/Vol] 2.9 10*3/uL Normal 1.0-4.3 [facility] Comment on above: Performed By: #### H EMDF, TROPN, BMP3, QWAL2 #### [address] Lymphocytes/100 WBC (Bld) 36.8 % Normal 20.0-40.0 [facility] Comment on above: Performed By: #### H EMDF, TROPN, BMP3, QWAL2 #### [facility] [address] [place], [place] MCH (RBC) [Entitic mass] 30.0 pg Normal 26.0-34.0 [facility] Comment on above: Performed By: #### H EMDF, TROPN, BMP3, QWAL2 #### [place] [address] [address] [place], [place] MCHC 33.6 % Normal 32.0-36.0 [facility] Comment on above: Performed By: #### H EMDF, TROPN, BMP3, QWAL2 #### [place] [address] [address] [place], [place] MCV (RBC) [Entitic vol] 89.4 fL Normal 79.0-98.0 [facility] Comment on above: Performed By: #### H EMDF, TROPN, BMP3, QWAL2 #### [place] [address] [address] [place], [place] Monocytes (Bld) [#/Vol] 0.5 10*3/uL Normal 0.0-0.8 [facility] Comment on above: Performed By: #### H EMDF, TROPN, BMP3, QWAL2 #### [place] [address] [address] [place], [place] Monocytes/100 WBC (Bld) 5.9 % Normal 2.0-10.0 [facility] Comment on above: Performed By: #### H EMDF, TROPN, BMP3, QWAL2 #### [place] [address] [address] [place], [place] Platelet mean volume (Bld) [Entitic vol] 10.2 fL Normal 7.4-10.4 [facility] Comment on above: Performed By: #### H EMDF, TROPN, BMP3, QWAL2 #### [place] [address] [address] [place], [place] Platelets (Bld) [#/Vol] 183 10*3/uL Normal 140-440 [facility] Comment on above: Performed By: #### H EMDF, TROPN, BMP3, QWAL2 #### [facility] [address] [place] [address] RBC (Bld) [#/Vol] 4.54 10*6/uL Normal 3.80-5.20 [facility] [employer] Comment on above: Performed By: #### H EMDF, TROPN, BMP3, QWAL2 #### [facility] [address] [place] [address] WBC (Bld) [#/Vol] 7.8 10*3/uL Normal 3.6-10.7 [facility] [employer] Comment on above: Performed By: #### H EMDF, TROPN, BMP3, QWAL2 #### [facility] [address] [place] [address] Troponin Ion 03-07-2021 Troponin I.cardiac [Mass/Vol] ng/mL Normal 0.000-0.034 [facility] Comment on above: Result Comment: . Performed By: #### H EMDF, TROPN, BMP3, QWAL2 #### [facility] [address] Troponin [id number] By: Isreal Kincaid on 03-07-2021 Troponin I.cardiac [Mass/Vol] ng/mL 0.000 - 0.034 ng/mL [facility] Work Phone: Comment on above: . Test Performed by [facility], [address] [place] [id number] [facility] Work Phone: [facility] Work Phone: UrinalysisOrdered By: Sherin hanson on 03-07-2021 AMORPHOUS CRYSTAL Few Abnormal Negative /[HPF] [facility] Work Phone: Comment on above: . Appearance (U) Turbid Abnormal Clear NA [facility] Work Phone: Comment on above: . Bacteria, UA Moderate Abnormal Negative /[HPF] [facility] Work Phone: Comment on above: . Bilirubin Urine Negative Negative mg/dL [facility] Work Phone: Comment on above: . Color (U) Yellow Lt. Yellow NA [facility] Work Phone: Comment on above: . Glucose, Ur Normal Normal (<70) mg/dL [facility] Work Phone: Comment on above: . Hyaline Casts, UA Negative Negative /[LPF] [facility] Work Phone: Comment on above: . Interpretation and review of laboratory results Abnormal [facility] Work Phone: Ketones Ql (U) 10 mg/dL Abnormal Negative [facility] Work Phone: Comment on above: . LEUKOCYTES, UA 500 Abnormal Negative Robin/uL [facility] Work Phone: Comment on above: . Mucous Threads Many Abnormal Negative /[LPF] [facility] Work Phone: Comment on above: . Nitrite, Urine Negative Negative NA [facility] Work Phone: Comment on above: . Occult Blood,Urine Negative Negative mg/dL [facility] Work Phone: Comment on above: . pH (U) 6.0 [pH] [facility] Work Phone: Comment on above: . Protein (U) [Mass/Vol] 20 mg/dL Abnormal Negative [employer] Work Phone: Comment on above: . RBC, UA 26-50 Abnormal 0 - 2 /[HPF] [facility] Work Phone: Comment on above: . Specific [place], Urine 1.015 [facility] Work Phone: Comment on above: . Squam Epithel, UA 26-50 Abnormal 3 - 5 /[HPF] [facility] Work Phone: Comment on above: . Urobilinogen, Urine 2 mg/dL Abnormal Normal (0-1) [facility] Work Phone: Comment on above: . WBC, UA 26-50 Abnormal 0 - 5 /[HPF] [facility] Work Phone: Comment on above: . Test Performed by [facility], [address] [place] [address] [facility] Work Phone: [facility] Work Phone: hCG Qual Pregon 03-07-2021 hCG Qual Preg Negative Normal [facility] Comment on above: Result Comment: Refe rence Range: NEGATIVE Effective 10/10/2019, the reference interval for the qualitative test has been updated. This test detects hCG at concentrations of 10 mIU/L or greater in serum. Performed By: #### H EMDF, TROPN, BMP3, QWAL2 #### [facility] [address] [place] [id number] Chlam/GC-DNA Amplifiedon Chlam/GC-DNA Amplified Test performed at [facility] Chlamydia trachomatis DNA NOT DETECTED Neisseria gonorrhoeae DNA NOT DETECTED Reference range NOT DETECTED Method: Strand Displacement Amplification-BD ProbeTec Assay Comment: A negative result does not preclude C.trachomatis or N. gonorrhoeae infection because results are dependent on adequate specimen collection, absence of inhibitors, and sufficient DNA to be detected. Normal [facility] Comment on above: Performed By: #### T &S #### [place] [address] HIV Screenon 01-07-2019 HIV Screen Nonreactive Normal Nonreactive [facility] Comment on above: Performed By: #### 3 HIV #### [place] [address] Hepatitis Acute Panelon 12-28 HAV Ab IgM Negative Normal Negative [facility] Comment on above: Performed By: #### H EPP #### [place] [address] HB Core Ab IgM Negative Normal Negative [facility] Comment on above: Performed By: #### H EPP #### [place] [address] Hepatitis C Ab Negative Normal Negative [facility] Comment on above: Performed By: #### H EPP #### [facility] [address] [place] [address] Hep.B Surface Ag Negative Normal Negative [facility] Comment on above: Performed By: #### H EPP #### [place] [address] Rapid Bact.Vaginosison 01-07 Rapid Bact.Vaginosis see below Normal Negative [facility] Comment on above: Result Comment: Posi tive for the presence of bacterial vaginosis. Performed By: #### R APBV #### [place] [address] Rapid Trichomonas Agon 01-07 Rapid Trichomonas Ag see below Normal Negative [facility] Comment on above: Result Comment: No T richomonas antigen present or the antigen level is below detection limit of the assay (2500 organisms/mL). Performed By: #### R APTR #### [place] [address] Rubella, Quantitativeon 12-28 Rubella, Quantitative 22.80 IU/mL Normal [facility] Comment on above: Result Comment: Not Immune <5.0 IU/mL Indeterminate >=5.0 IU/mL <=9.9 IU/ml Suggest repeat testing in 2-3 weeks Immune >=10.0 IU/mL Performed By: #### R UB3 #### [place] [address] Chlam/GC-DNA Amplifiedon Chlam/GC-DNA Amplified Test performed at [facility] Chlamydia trachomatis DNA NOT DETECTED Neisseria gonorrhoeae DNA NOT DETECTED Reference range NOT DETECTED Method: Strand Displacement Amplification-BD ProbeTec Assay Comment: A negative result does not preclude C.trachomatis or N. gonorrhoeae infection because results are dependent on adequate specimen collection, absence of inhibitors, and sufficient DNA to be detected. Normal [facility] Comment on above: Performed By: #### T &S #### [place] [address] Cult Urineon 01-06-2019 Cult Urine Test performed at [facility] ORGANISM: *Streptococcus agalactiae (Group B Strep) (ID: 1) >100,000 CFU/ml Normal [facility] Comment on above: Performed By: #### C _URI #### [facility] [address] [place] [address] Hemogramon 01-06-2019 Erythrocyte distribution width (RBC) [Ratio] 14.2 % Normal 11.7-14.4 [facility] Comment on above: Performed By: #### C BC1 #### [facility] [address] [place] [address] Hematocrit (Bld) [Volume fraction] 36.1 % Normal 34.1-44.9 [facility] Comment on above: Performed By: #### C BC1 #### [facility] [address] [place] [address] Hemoglobin (Bld) [Mass/Vol] 12.0 g/dL Normal 11.2-15.7 [facility] Comment on above: Performed By: #### C BC1 #### [facility] [address] [place] [address] MCH (RBC) [Entitic mass] 29.6 pg Normal 25.6-32.2 [facility] Comment on above: Performed By: #### C BC1 #### [facility] [address] [place] [address] MCHC (RBC) [Mass/Vol] 33.2 % Normal 31.6-34.8 [facility] Comment on above: Performed By: #### C BC1 #### [facility] [address] [place] [address] MCV (RBC) [Entitic vol] 89.1 fL Normal 79.4-94.8 [facility] Comment on above: Performed By: #### C BC1 #### [facility] [address] [place] [address] Platelet mean volume (Bld) [Entitic vol] 11.8 fL Normal 9.4-12.3 [facility] Comment on above: Performed By: #### C BC1 #### [facility] [address] [place] [address] Platelets (Bld) [#/Vol] 179 thou/cmm Low 182-369 [facility] Comment on above: Performed By: #### C BC1 #### [facility] [address] [place] [address] RBC (Bld) [#/Vol] 4.05 mil/cmm Normal 3.93-5.22 [facility] Comment on above: Performed By: #### C BC1 #### [facility] [address] [place] [address] RDW SD 46.3 fl Normal 36.4-46.3 [facility] Comment on above: Performed By: #### C BC1 #### [facility] [address] [place] [address] WBC (Bld) [#/Vol] 8.27 thou/cmm Normal 3.98-10.04 [facility] Comment on above: Performed By: #### C BC1 #### [place] [address] Pap,Cyto Gynon 01-06-2019 Pap,Cyto [facility] Test performed at [place] [address] NAME: BETSY MESA REQUESTING: EKTA SANCHEZ CNM [...] 03, 2019 Page 1 of 1 Normal [facility] Comment on above: Performed By: #### T &S #### [facility] [address] [place] [address] RPRon 01-06-2019 Reagin Ab RPR Ql (S) Non-reactive Normal Nonreactive A [facility] Comment on above: Performed By: #### R ND #### [place] [address] Type and Screenon 01-06-2019 ABO group Nom (Bld) O Normal [facility] Comment on above: Performed By: #### T &S #### [place] [address] Comment Out Patient [facility] Comment on above: Performed By: #### T &S #### [place] [address] RH Type Positive [facility] Comment on above: Performed By: #### T &S #### [place] [address] HCG,Totalon 12-19-2018 HCG Qn 550513.0 m[IU]/mL Normal [facility] Comment on above: Result Comment: Male < or = 1 Non- female 1-3 Gestational Age: 0.2-1 Week 5 - 50 1-2 Weeks 50 - 500 2-3 Weeks 100 - 5000 3-4 Weeks 500 - 92781 4-5 weeks 1000 - 26612 5-6 weeks 82007 - 100,000 6-8 weeks 45800 - 200,000 2-3 months 73493 - 100,000 Performed By: #### H CG #### [place] [address] GROUP B BETA STREP SCREENon 08-10-2017 GROUP B BETA STREP SCREEN SPECIMEN NUMBER: [id number] Normal [facility] Comment on above: Result Comment: GROU P B BETA STREP SCREEN REPORT STATUS: FINAL SITE/TYPE: RECTAL/VAGINAL CULTURE RESULT(S): NO GROUP B STREPTOCOCCUS ISOLATEDPathology Laboratories, Inc. [address] [place], [place] [address]Laboratory Director: Nimesh Colon M.D.MILAGROS No. [id number] [facility] Accreditation No. [id number] HEMOGLOBIN ELECTROPHORESISon 05-08-2017 Hemoglobin mass conc (Bld) [...] Test performed at [facility] [address] [place] [address] CLIA Number [id number] [facility] Accreditation Number [id number] CBC W/AUTO DIFFon 05-04-2017 % NEUTROPHILS 61.4 [...] (RBC) 3.20 10*6/uL Low 4.00-5.50 Path [facility] Hematocrit (HCT) 29.0 % Low 36.0-48.0 Patholog y [facility] Hemoglobin mass conc (Bld) 9.5 g/dL [...] TRICH VAGINALIS rRNA Negative Normal NEGATIVE [facility] Comment on above: Result Comment: Lilliana y methodology is nucleic acid amplification by certified retinal angiographer mediated amplification (TMA) utilizing the Aptima Combo 2 Assay. GLUCOSEon 05-04-2017 Glucose mass conc 114 mg/dL High 70-100 [facility] Comment on above: Result Comment: DIAG NOSTIC THRESHOLDS FOR DIABETES AND IMPAIRED FASTING GLUCOSE (IFG) FASTING PLASMA GLUCOSE NORMAL <100 MG/DL IFG 100-125 MG/DL DIABETES >/= 126 MG/DL GLUCOSE, POST GLUCOLAon DRAW TIME 1 HOUR POST-GLUCOLA Normal [facility] Comment on above: Result Comment: DIAG NOSTIC THRESHOLDS FOR DIABETES AND IMPAIRED GLUCOSE TOLERANCE(IGT) USING ORAL GLUCOSE TOLERANCE TEST: 2-HOUR PLASMA GLUCOSE NORMAL <140 MG/DL IGT 140-199 MG/DL DIABETES >/= 200 MG/DLPathology Laboratories, Inc. [address] [place], [place] [address]Laboratory Director: David Benitez M.D.CLIA No. [id number] CAP Accreditation No. [id number] Glucose mass conc 108 mg/dL Normal <140 [facility] CYSTIC FIBROSIS GENOTYPE, 13 9 MUTATIONSon 04-05-2017 CF 139 INTERPRETATION Negative Normal [facility] MUTATION 1 Not Detected Normal [facility] POSITIVE FAMILY HISTORY? No Normal [facility] SOURCE Blood Normal [facility] Comment on above: Result Comment: Inte rpretation: This patient is negative for the cystic fibrosismutations analyzed, including the 23 mutations recommended forscreening by the [employer] and AmericanCollege of [...] 1 in 28 1 in 588 (0.2%)[employer]ken[employer] 1 in 29 1 in 610 (0.2%) [...] Obstetrics and Gynecology, by next-generation sequencingusing the Hacker SchoolDx Cystic Fibrosis assay. Reference sequenceis [id number]. The following mutations were analyzed:[id number] c.1A>G c.115C>T c.178G>Tc.200C>T c.223C>T c.254G>A c.262_263delTT c.273+1G>Ac.274-1G>A [...] c.3302T>A c.3310G>T c.3472C>Tc.3484C>T c.3528delC c.3587C>G c.3611G>A c.3612G>Ac.3659delC c.3717+75510F>T c.3731G>A c.3744delA c.3752G>Ac.3773_3774insT c.3846G>A c.3873+1G>A c.3884_3885insT c.3909C>Gc.3937C>T c.3964-78_4242+577del c.4077_4080delTGTTinsAA c.4251delAConditionally reported variants:c.1210-12T[5_9] c.1516A>G c.1519A>G c.1523T>GElectronically Signed by David Nash M.D. Test performed at [facility] [address] [place] [address], [address] [place] [address] [employer] Line: David Nash M.D. CLIA Number [id number] [facility] Accreditation Number [id number] TESTING LOCATION [facility] Comment on above: Result Comment: Test performed at [facility] [address] [place] [address] CLIA Number [id number] HEMOGLOBIN ELECTROPHORESISon 04-03-2017 Hemoglobin mass conc (Bld) [...] Test performed at [facility] [address] [place] [address] CLIA Number [id number] [facility] Accreditation Number [id number] QUADRUPLE SCREENING TEST WIT H INTERPRETATIONon 04-03-2017 Calc Trisomy 18 risk [id number] Normal [facility] DETERMINED BY: [facility] Normal [facility] Down Syndrome risk interpret [facility] Comment on above: Result Comment: --- NORMAL [...] Neural tube defect interpreta [facility] Comment on above: Result Comment: --- NORMAL [...] a normal . Neural tube defect risk [id number] [facility] AFP 38.8 NG/ML Normal [facility] INHIBIN A 211 PG/ML [facility] Comment on above: Result Comment: Test performed at [facility] [address] [place] [address] CLIA Number [id number] [facility] Accreditation Number [id number] UE3 2.00 NG/ML Normal [facility] [...] Inc INSULIN DEP. DIABETIC NO Normal [facility] INTERPRETATION: Negative Normal [facility] Comment on above: Result Comment: SCRE EN NEGATIVE FOR OPEN NEURAL TUBE DEFECT. SCREEN NEGATIVE FOR DOWN SYNDROME. SCREEN NEGATIVE FOR TRISOMY 18. SEE ANALYSIS BELOW FOR SPECIFIC RISK ASSESSMENT. NEURAL TUBE DEFECT RISK NOT INCREASED Normal [facility] NUMBER OF GESTATIONS 1 Normal Path [facility] RACE BLACK Normal [facility] SMOKER? YES Normal [facility] TRISOMY 18 ASSESSMENT NOT INCREASED Normal [facility] Weight 78.9264 kg Normal [facility] VARICELLA ZOSTER IGGon 04-03 VARICELLA ZOSTER IGG 477 INDEX Normal SEE BELOW [facility] Comment on above: Result Comment: INTE [...] Test performed at [facility] [address] [place] [address] CLIA Number [id number] [facility] Accreditation Number [id number] [facility] [address] [place], [place] [address]Laboratory Director: David Benitez M.D.CLIA No. [id number] [facility] Accreditation No. [id number] PROFILE 2 017 ABO group O Normal [facility] Comment on above: Result Comment: Test performed at [address] [address] CLIA NUMBER [id number] ANTIBODY SCREEN Negative Normal NEGATIVE [facility] Comment on above: Result Comment: Test performed at [address] [address] CLIA NUMBER [id number] Rh type Positive Normal [facility] Comment on above: Result Comment: Test performed at [address] [address] CLIA NUMBER [id number] URINE CULTUREon 03-30-2017 Urine culture, bacteria SPECIMEN NUMBER: [id number] [facility] Comment on above: [...] y methodology is nucleic acid amplification by certified retinal angiographer mediated amplification (TMA) utilizing the Aptima Combo [...] (Leukocytes) 6.7 10*3/uL Normal 3.7-10.8 Patholo gy [facility] TOTAL HCGon 03-29-2017 [place] [address].0 m[IU]/mL Normal [facility]olog [facility] Comment on above: Result Comment: TOTA [...] Pressure Non-Invasive 78 mm[Hg] CASEY MOULTON MD [facility] 05-14-2025 13:43-0400 Heart rate 67 /min CASEY MOULTON MD [facility] 05-14-2025 13:43-0400 Systolic Blood Pressure Non-Invasive 122 mm[Hg] CASEY MOULTON MD [facility] 05-14-2025 13:04-0400 Diastolic Blood Pressure Non-Invasive 74 mm[Hg] CASEY MOULTON MD [facility] 05-14-2025 13:04-0400 Heart rate 78 /min CASEY MOULTON MD [facility] 05-14-2025 13:04-0400 Respiratory rate 16 /min CASEY MOULTON MD [facility] 05-14-2025 13:04-0400 Systolic Blood Pressure Non-Invasive 108 mm[Hg] CASEY MOULTON MD [facility] 05-14-2025 12:50-0400 Respiratory rate 16 /min CASEY MOULTON MD [facility] 05-14-2025 12:42-0400 Diastolic Blood Pressure Non-Invasive 77 mm[Hg] CASEY MOULTON MD [facility] 05-14-2025 12:42-0400 Heart rate 68 /min CASEY MOULTON MD [facility] 05-14-2025 12:42-0400 Respiratory rate 15 /min CASEY MOULTON MD [facility] 05-14-2025 12:42-0400 Systolic Blood Pressure Non-Invasive 109 mm[Hg] CASEY MOULTON MD [facility] 05-14-2025 12:06-0400 Body temperature 97.34 [degF] CASEY MOULTON MD [facility] 05-14-2025 12:05-0400 Respiratory Rate - Anes 0 br/min CASEY MOULTON MD [facility] 05-14-2025 12:00-0400 Respiratory Rate - Anes 16 br/min CASEY MOULTON MD [facility] 05-14-2025 11:55-0400 Respiratory Rate - Anes 18 br/min CASEY MOULTON MD [facility] 05-14-2025 11:38-0400 Body height 177.8 cm CASEY MOULTON MD [facility] 05-14-2025 11:38-0400 Body temperature 97.88 [degF] CASEY MOULTON MD [facility] 05-14-2025 11:38-0400 Body weight 107.8 kg CASEY MOULTON MD [facility] 05-14-2025 11:38-0400 Heart rate 89 /min CASEY MOULTON MD [facility] 05-10-2025 03:54-0400 Body temperature 97.1 [degF] Dr. Nelson Ulloa DO Work Phone: [facility] 05-10-2025 03:54-0400 Diastolic blood pressure 91 mm[Hg] Dr. Nelson Ulloa DO Work Phone: [facility] 05-10-2025 03:54-0400 Heart rate 77 /min Dr. Nelsno Ulloa DO Work Phone: [facility] 05-10-2025 03:54-0400 Respiratory rate 16 /min Dr. Nelson Ulloa DO Work Phone: [facility] 05-10-2025 03:54-0400 SaO2% (BldA) [Mass fraction] 99 % Dr. Nelson Ulloa DO Work Phone: [facility] 05-10-2025 03:54-0400 Systolic blood pressure 140 mm[Hg] Dr. Nelson Ulloa DO Work Phone: [facility] 05-10-2025 01:59-0400 Body height 177.[address] Nelson Ulloa DO Work Phone: [facility] 05-10-2025 01:59-0400 Body mass index (BMI) [Ratio] 34.7 kg/m2 Dr. Nelson Ulloa DO Work Phone: [facility] 05-10-2025 01:59-0400 Body weight 109.[address] Nelson Ulloa DO Work Phone: [facility] 05-06-2025 22:07-0400 Body temperature 97.2 [degF] No Primary Care Physician [facility] 05-06-2025 22:07-0400 Diastolic blood pressure 87 mm[Hg] No Primary Care Physician [facility] 05-06-2025 22:07-0400 Heart rate 74 /min No Primary Care Physician [facility] 05-06-2025 22:07-0400 Respiratory rate 16 /min No Primary Care Physician [facility] 05-06-2025 22:07-0400 SaO2% (BldA) [Mass fraction] 100 % No Primary Care Physician [facility] 05-06-2025 22:07-0400 Systolic blood pressure 133 mm[Hg] No Primary Care Physician [facility] 05-06-2025 18:00-0400 Body height 177.8 cm No Primary Care Physician [facility] 05-06-2025 18:00-0400 Body mass index (BMI) [Ratio] 33.8 kg/m2 No Primary Care Physician [facility] 05-06-2025 18:00-0400 Body weight 106.91 kg No Primary Care Physician [facility] 05-03-2025 23:35-0400 Body temperature 97.6 [degF] No Primary Care Physician [facility] 05-03-2025 23:35-0400 Diastolic blood pressure 87 mm[Hg] No Primary Care Physician [facility] 05-03-2025 23:35-0400 Heart rate 77 /min No Primary Care Physician [facility] 05-03-2025 23:35-0400 Respiratory rate 18 /min No Primary Care Physician [facility] 05-03-2025 23:35-0400 SaO2% (BldA) [Mass fraction] 100 % No Primary Care Physician [facility] 05-03-2025 23:35-0400 Systolic blood pressure 132 mm[Hg] No Primary Care Physician [facility] 05-03-2025 19:30-0400 Body height 177.8 cm No Primary Care Physician [facility] 05-03-2025 19:30-0400 Body mass index (BMI) [Ratio] 34.4 kg/m2 No Primary Care Physician [facility] 05-03-2025 19:30-0400 Body weight 108.9 kg No Primary Care Physician [facility] 03-23-2025 01:40-0400 Body temperature 99 [degF] No Primary Care Physician [facility] 03-23-2025 01:40-0400 Diastolic blood pressure 88 mm[Hg] No Primary Care Physician [facility] 03-23-2025 01:40-0400 Heart rate 80 /min No Primary Care Physician [facility] 03-23-2025 01:40-0400 Respiratory rate 16 /min No Primary Care Physician [facility] 03-23-2025 01:40-0400 SaO2% (BldA) [Mass fraction] 100 % No Primary Care Physician [facility] 03-23-2025 01:40-0400 Systolic blood pressure 128 mm[Hg] No Primary Care Physician [facility] 03-22-2025 23:22-0400 Body height 177.8 cm No Primary Care Physician [facility] 03-22-2025 23:22-0400 Body mass index (BMI) [Ratio] 34.2 kg/m2 No Primary Care Physician [facility] 03-22-2025 23:22-0400 Body weight 108.2 kg No Primary Care Physician [facility] 02-05-2025 02:56-0400 Body temperature 97.4 [degF] No Primary Care Physician [facility] 02-05-2025 02:56-0400 Diastolic blood pressure 83 mm[Hg] No Primary Care Physician [facility] 02-05-2025 02:56-0400 Heart rate 68 /min No Primary Care Physician [facility] 02-05-2025 02:56-0400 Respiratory rate 16 /min No Primary Care Physician [facility] 02-05-2025 02:56-0400 SaO2% (BldA) [Mass fraction] 99 % No Primary Care Physician [facility] 02-05-2025 02:56-0400 Systolic blood pressure 125 mm[Hg] No Primary Care Physician [facility] 02-05-2025 01:12-0400 Body height 177.8 cm No Primary Care Physician [facility] 02-05-2025 01:12-0400 Body mass index (BMI) [Ratio] 33.3 kg/m2 No Primary Care Physician [facility] 02-05-2025 01:12-0400 Body weight 105.2 kg No Primary Care Physician [facility] 01-12-2025 01:55-0400 Body temperature 98.1 [degF] No Primary Care Physician [facility] 01-12-2025 01:55-0400 Diastolic blood pressure 73 mm[Hg] No Primary Care Physician [facility] 01-12-2025 01:55-0400 Heart rate 78 /min No Primary Care Physician [facility] 01-12-2025 01:55-0400 Respiratory rate 14 /min No Primary Care Physician [facility] 01-12-2025 01:55-0400 SaO2% (BldA) [Mass fraction] 100 % No Primary Care Physician [facility] 01-12-2025 01:55-0400 Systolic blood pressure 122 mm[Hg] No Primary Care Physician [facility] 01-11-2025 21:48-0400 Body height 177.8 cm No Primary Care Physician [facility] 01-11-2025 21:48-0400 Body mass index (BMI) [Ratio] 33.3 kg/m2 No Primary Care Physician [facility] 01-11-2025 21:48-0400 Body weight 105.23 kg No Primary Care Physician [facility] 09-30-2024 11:44-0500 Diastolic Blood Pressure Non-Invasive 93 mm[Hg] MARLENA [facility] 09-30-2024 11:44-0500 Heart rate 84 /min MARLENA [facility] 09-30-2024 11:44-0500 Respiratory rate 16 /min MARLENA [facility] 09-30-2024 11:44-0500 Systolic Blood Pressure Non-Invasive 137 mm[Hg] MARLENA NEVEST DO [facility] 09-30-2024 10:12-0500 Blood Pressure Location MARLENA NEVEST DO [facility] 09-30-2024 10:12-0500 Blood Pressure Method MARLENA NEVEST [facility] 09-30-2024 10:12-0500 Body temperature 97.88 [degF] MARLENA LOWERY DO [facility] 09-30-2024 10:12-0500 Diastolic Blood Pressure Non-Invasive 78 mm[Hg] MARLENA LOWERY DO [facility] 09-30-2024 10:12-0500 Heart rate 94 /min MALRENA NEVEST DO [facility] 09-30-2024 10:12-0500 Respiratory rate 18 /min MARLENA LOWERY DO [facility] 09-30-2024 10:12-0500 Systolic Blood Pressure Non-Invasive 128 mm[Hg] MARLENA LOWERY DO [facility] 05-06-2024 15:11-0400 Body mass index (BMI) [Ratio] 30.2 kg/m2 Leela Currie MD Work Phone: [facility] 05-06-2024 15:11-0400 Body weight 96.16 kg Leela Currie MD Work Phone: [facility] 05-06-2024 15:11-0400 Diastolic blood pressure 70 mm[Hg] Leela Currie MD Work Phone: [facility] 05-06-2024 15:11-0400 Heart rate 102 /min Leela Currie MD Work Phone: [facility] 05-06-2024 15:11-0400 Respiratory rate 18 /min Leela Currie MD Work Phone: [facility] 05-06-2024 15:11-0400 Systolic blood pressure 108 mm[Hg] Leela Currie MD Work Phone: [facility] 05-01-2024 13:45-0400 Body mass index (BMI) [Ratio] 30.49 kg/m2 Jose Plotts ENERGY PROFESSIONAL.CNM Work Phone: [facility] 05-01-2024 13:45-0400 Body weight 97.07 kg Jose Plotts ENERGY PROFESSIONAL.CNM Work Phone: [facility] 05-01-2024 13:45-0400 Diastolic blood pressure 70 mm[Hg] Jose Plotts ENERGY PROFESSIONAL.CNM Work Phone: [facility] 05-01-2024 13:45-0400 Systolic blood pressure 108 mm[Hg] Jose Plotts ENERGY PROFESSIONAL.CNM Work Phone: [facility] 04-28-2024 11:36-0400 Body height 178.4 cm Sushil Haury ENERGY PROFESSIONAL.[employer] Work Phone: [facility] 04-28-2024 11:36-0400 Body mass index (BMI) [Ratio] 30.72 kg/m2 Sushil Haury ENERGY PROFESSIONAL.[employer] Work Phone: [facility] 04-28-2024 11:36-0400 Body weight 97.8 kg Sushil Haury ENERGY PROFESSIONAL.[employer] Work Phone: [facility] 04-28-2024 11:36-0400 Diastolic blood pressure 68 mm[Hg] Ssuhil Haury ENERGY PROFESSIONAL.[employer] Work Phone: [facility] 04-28-2024 11:36-0400 Systolic blood pressure 116 mm[Hg] Sushil Haury ENERGY PROFESSIONAL.[employer]OTE[employer] Work Phone: [facility] 10-14-2023 22:57-0400 Body temperature 98.4 [degF] Adult Manager [facility] 10-14-2023 22:57-0400 Body weight 104.326 Adult Manager [facility] 10-14-2023 22:57-0400 Diastolic blood pressure 88 mm[Hg] Adult Manager [facility] 10-14-2023 22:57-0400 Heart rate 94 /min Adult Manager [facility] 10-14-2023 22:57-0400 Respiratory rate 16 /min Adult Manager [facility] 10-14-2023 22:57-0400 SaO2% (BldA) [Mass fraction] 100 % Adult Manager [facility] 10-14-2023 22:57-0400 Systolic blood pressure 141 mm[Hg] Adult Manager [facility] 08-11-2023 13:10-0500 Body temperature 97.1 [degF] Adult Manager [facility] 08-11-2023 13:10-0500 Body weight 102.058 Adult Manager [facility] 08-11-2023 13:10-0500 Diastolic blood pressure 94 mm[Hg] Adult Manager [facility] 08-11-2023 13:10-0500 Heart rate 91 /min Adult Manager [facility] 08-11-2023 13:10-0500 Respiratory rate 16 /min Adult Manager [facility] 08-11-2023 13:10-0500 SaO2% (BldA) [Mass fraction] 100 % Adult Manager [facility] 08-11-2023 13:10-0500 Systolic blood pressure 126 mm[Hg] Adult Manager [facility] 05-12-2023 03:52-0400 Heart rate 104 /min Adult Manager [facility] 05-12-2023 03:47-0400 Body temperature 97.7 [degF] Adult Manager [facility] 05-12-2023 03:47-0400 Body weight 97.795 Adult Manager [facility] 05-12-2023 03:47-0400 Diastolic blood pressure 106 mm[Hg] Adult Manager [facility] 05-12-2023 03:47-0400 Respiratory rate 18 /min Adult Manager [facility] 05-12-2023 03:47-0400 SaO2% (BldA) [Mass fraction] 100 % Adult Manager [facility] 05-12-2023 03:47-0400 Systolic blood pressure 148 mm[Hg] Adult Manager [facility] 09-26-2022 23:37-0500 Respiratory rate 18 /min Marcelo Robles MD [facility] [employer] 09-26-2022 21:40-0500 SaO2% (BldA) [Mass fraction] 96 % Marcelo Robles MD Work Phone: [facility] [employer] 09-26-2022 20:45-0500 Diastolic blood pressure 93 mm[Hg] Marcelo Robles MD Work Phone[facility] [employer] 09-26-2022 20:45-0500 Systolic blood pressure 135 mm[Hg] Marcelo Robles MD Work Phone: [facility] 09-26-2022 20:18-0500 Body height 170.2 cm Marcelo Robles MD Work Phone: [facility] 09-26-2022 20:18-0500 Body mass index (BMI) [Ratio] 33.05 kg/m2 Marcelo Robles MD Work Phone: [facility] 09-26-2022 20:18-0500 Body weight 95.71 kg Marcelo Robles MD Work Phone: [facility] 09-26-2022 20:04-0500 Body temperature 98.4 [degF] Marcelo Robles MD Work Phone: [facility] 09-26-2022 20:04-0500 Heart rate 114 /min Marcelo Robles MD Work Phone: [facility] 09-25-2022 14:15-0500 Diastolic blood pressure 81 mm[Hg] Tod Filmer [facility] 09-25-2022 14:15-0500 Heart rate 80 /min Tod Filmer [facility] 09-25-2022 14:15-0500 Respiratory rate 16 /min Tod Filmer [facility] 09-25-2022 14:15-0500 SaO2% (BldA) [Mass fraction] 98 % Tod Filmer [facility] 09-25-2022 14:15-0500 Systolic blood pressure 123 mm[Hg] Tod Filmer [facility] 09-25-2022 12:15-0500 Body temperature 96.9 [degF] Tod Filmer [facility] 09-25-2022 12:15-0500 Body weight 96.61 kg Tod Filmer [facility] 03-08-2022 10:00-0400 Heart rate 87 /min JOSSIE HAYES MD [facility] 03-08-2022 10:00-0400 Mean blood pressure 100 mm[Hg] JOSSIE HAYES MD [address] [place] [address] 03-08-2022 10:00-0400 Systolic blood pressure 134 mm[Hg] JOSSIE HAYES MD [address] [place] [address] 03-08-2022 07:11-0400 Body temperature 98.06 [degF] JOSSIE HAYES MD [address] [place] [address] 03-08-2022 07:11-0400 Diastolic blood pressure 97 mm[Hg] JOSSIE HAYES MD [address] [place] [address] 03-08-2022 07:11-0400 Heart rate 81 /min JOSSIE HAYES MD [address] [place] [address] 03-08-2022 07:11-0400 Mean blood pressure 112 mm[Hg] JOSSIE HAYES MD [address] [place] [address] 03-08-2022 07:11-0400 Respiratory rate 18 /min JOSSIE HAYES MD [address] [place] [address] 03-08-2022 07:11-0400 Systolic blood pressure 141 mm[Hg] JOSSIE HAYES MD [address] [place] [address] 03-08-2022 04:43-0400 Diastolic blood pressure 83 mm[Hg] JOSSIE HAYES MD [address] [place] [address] 03-08-2022 04:43-0400 Heart rate 75 /min JOSSIE HAYES MD [address] [place] [address] 03-08-2022 04:43-0400 Mean blood pressure 101 mm[Hg] JOSSIE HAYES MD [address] [place] [address] 03-08-2022 04:43-0400 Respiratory rate 16 /min JOSSIE HAYES MD [address] [place] [address] 03-08-2022 04:43-0400 Systolic blood pressure 136 mm[Hg] JOSSIE HAYES MD [facility] 03-07-2022 23:00-0400 Body temperature 98.42 [degF] JOSSIE HAYES MD [address] [place] [address] 03-07-2022 23:00-0400 Respiratory rate 16 /min JOSSIE HAYES MD [address] [place] [address] 03-07-2022 16:57-0400 Body temperature 98.6 [degF] JOSSIE HAYES MD [address] [place] [address] 03-05-2022 10:05-0400 Body height 177.8 cm JOSSIE HAYES MD [address] [place] [address] 03-05-2022 10:05-0400 Body weight 109.1 kg JOSSIE HAYES MD [address] [place] [address] 03-05-2022 10:05-0400 Body weight 34.51 kg/m2 JOSSIE HAYES MD [address] [place] [address] 01-18-2022 03:00-0400 Body temperature 98.06 [degF] MICHI VASSAS DO [facility] 01-18-2022 03:00-0400 Diastolic blood pressure 64 mm[Hg] MICHI VASSAS DO [facility] 01-18-2022 03:00-0400 Heart rate 79 /min MICHI VASSAS DO [facility] 01-18-2022 03:00-0400 Mean blood pressure 83 mm[Hg] MICHI VASSAS DO [facility] 01-18-2022 03:00-0400 Respiratory rate 16 /min MICHI VASSAS DO [facility] 01-18-2022 03:00-0400 Systolic blood pressure 120 mm[Hg] MICHI VASSAS DO [facility] 01-17-2022 23:00-0400 Body temperature 97.88 [degF] MICHI VASSAS DO [facility] 01-17-2022 23:00-0400 Diastolic blood pressure 79 mm[Hg] MICHI VASSAS DO [facility] 01-17-2022 23:00-0400 Heart rate 98 /min MICHI VASSAS DO [facility] 01-17-2022 23:00-0400 Mean blood pressure 94 mm[Hg] MICHI VASSAS DO [facility] 01-17-2022 23:00-0400 Respiratory rate 14 /min MICHI VASSAS DO [facility] 01-17-2022 23:00-0400 Systolic blood pressure 123 mm[Hg] MICHI VASSAS DO [facility] 01-17-2022 19:30-0400 Body temperature 98.06 [degF] MICHI VASSAS DO [facility] 01-17-2022 19:30-0400 Diastolic blood pressure 60 mm[Hg] MICHI VASSAS DO [facility] 01-17-2022 19:30-0400 Heart rate 99 /min MICHI VASSAS DO [facility] 01-17-2022 19:30-0400 Mean blood pressure 79 mm[Hg] MICHI VASSAS DO [facility] 01-17-2022 19:30-0400 Respiratory rate 16 /min MICHI VASSAS DO [facility] 01-17-2022 19:30-0400 Systolic blood pressure 118 mm[Hg] MICHI VASSAS DO [facility] 01-17-2022 17:06-0400 Body height 177.8 cm MICHI VASSAS DO [facility] 01-17-2022 17:06-0400 Body weight 110 kg MICHI VASSAS DO [facility] 01-17-2022 17:06-0400 Body weight 34.8 kg/m2 MICHI VASSAS DO [facility] 01-17-2022 14:42-0400 Body height 177.8 cm MICHI VASSAS DO [facility] 01-17-2022 14:42-0400 Body weight 110 kg MICHI VASSAS DO [facility] 01-17-2022 14:42-0400 Body weight 34.8 kg/m2 MICHI VASSAS DO [facility] 12-06-2021 15:54-0400 Body height 177.8 cm GATITO KITKO DO [facility] 12-06-2021 15:54-0400 Body weight 114 kg GATITO ODOM DO [facility] 12-06-2021 15:54-0400 Body weight 36.06 kg/m2 GATITO ODOM DO [facility] 08-07-2021 16:36-0500 Body temperature 98.06 [degF] NANDA TOLEDO DO [facility] 08-07-2021 16:36-0500 Diastolic blood pressure 87 mm[Hg] NANDA TOLEDO DO [facility] 08-07-2021 16:36-0500 Heart rate 95 /min NANDA TOLEDO DO [facility] 08-07-2021 16:36-0500 Respiratory rate 16 /min NANDA TOLEDO DO [facility] 08-07-2021 16:36-0500 Systolic blood pressure 129 mm[Hg] NANDA TOLEDO DO [facility] 05-18-2021 12:24-0400 Body temperature 98.24 [degF] DR JOSÉ MIGUEL MAGALLANES MD [facility] 05-18-2021 12:24-0400 Diastolic blood pressure 64 mm[Hg] DR JOSÉ MIGUEL MAGALLANES MD [facility] 05-18-2021 12:24-0400 Heart rate 78 /min DR JOSÉ MIGUEL MAGALLANES MD [facility] 05-18-2021 12:24-0400 Respiratory rate 18 /min DR JOSÉ MIGUEL MAGALLANES MD [facility] 05-18-2021 12:24-0400 Systolic blood pressure 103 mm[Hg] DR JOSÉ MIGUEL MAGALLANES MD [facility] 03-15-2021 22:43-0400 Diastolic blood pressure 77 mm[Hg] [facility] Work Phone: 03-15-2021 22:43-0400 Heart rate 97 /min [facility] Work Phone: 03-15-2021 22:43-0400 Respiratory rate 16 /min [facility] Work Phone: 03-15-2021 22:43-0400 SaO2% (BldA) [Mass fraction] 99 % [facility] Work Phone: 03-15-2021 22:43-0400 Systolic blood pressure 127 mm[Hg] [facility] Work Phone: 03-15-2021 20:21-0400 Body temperature 97.81 [...] 98.4 [degF] Isreal Kincaid MD Work Phone: [facility] Work Phone: Encounters Encounter Date Encounter Type Care Provider Facility Start: 05-14-2025 End: 05-14-2025 ambulatory ARLINE CORADO ENERGY PROFESSIONAL-[employer]OTECTION [employer] Facility:[facility] Start: 05-14-2025 End: 05-14-2025 SAME DAY STAY CASEY MOULTON MD [facility] Start: 05-11-2025 ambulatory ARLINE GOODWIN ENERGY PROFESSIONAL-[employer] Facility:[facility] Start: 05-10-2025 End: 05-10-2025 Emergency department patient visit Nelson Ulloa Facility:[facility] Start: 05-06-2025 End: 05-06-2025 Emergency department patient visit No Primary Care Physician -Emergency Department Work Phone: Start: 05-03-2025 End: 05-03-2025 Emergency department patient visit No Primary Care Physician -Emergency Department Work Phone: Start: 04-17-2025 End: 04-17-2025 ambulatory ARLINE Erick MICKIE ENERGY PROFESSIONAL-[employer] Facility:[facility] Start: 04-17-2025 End: 04-17-2025 Patient encounter procedure ARLINE M MICKIE ENERGY PROFESSIONAL-[employer] [facility] Start: 03-22-2025 End: 03-23-2025 Emergency department patient visit No Primary Care Physician -Emergency Department Work Phone: Start: 03-22-2025 End: 03-22-2025 Emergency department patient visit PAMELA MEZA MD Facility:D Start: 03-10-2025 End: 03-10-2025 ambulatory ARLINE CORADO ENERGY PROFESSIONAL-[employer] Facility:[facility] Start: 03-09-2025 End: 03-10-2025 Emergency department patient visit HANNAH MICKIE Facility:[id number] Start: 02-18-2025 End: 02-18-2025 Emergency department patient visit DR MARIANNA BOYKIN MD [facility] Start: 02-18-2025 End: 02-18-2025 Emergency department patient visit DR MARIANNA BOYKIN MD Facility:[facility] Start: 02-05-2025 End: 02-05-2025 Emergency department patient visit No Primary Care Physician -Emergency Department Work Phone: Start: 01-11-2025 End: 01-12-2025 Emergency department patient visit No Primary Care Physician -Emergency Department Work Phone: Start: 09-30-2024 End: 09-30-2024 Emergency department patient visit MARLENA LOWERY DO [facility] Start: 09-03-2024 ambulatory ARLINE GOODWIN ENERGY PROFESSIONAL-[employer] Facility:[facility] Start: 08-22-2024 End: 08-22-2024 ambulatory ARLINE CORADO ENERGY PROFESSIONAL-[employer] Facility:[facility] Start: 08-11-2024 Emergency department patient visit ARLINE CORADO Facility:[id number] Start: 08-08-2024 End: 08-08-2024 Emergency department patient visit Nelson [place] Facility:[facility] Start: 07-17-2024 End: 07-17-2024 Emergency department patient visit Oseas Aviles Facility:[facility] Start: 07-12-2024 End: 07-12-2024 Emergency department patient visit No Primary Care Physician Facility:[facility] Start: 06-16-2024 End: 06-16-2024 Emergency department patient visit [facility] Facility:[facility] Start: 05-06-2024 End: 05-06-2024 Patient encounter procedure Leela Currie MD Work Phone: OB/Gynecology Comment on above: Incomplete (Primary Dx); Threatened miscarriage Start: 05-06-2024 End: 05-06-2024 ambulatory SUSHIL VILLANUEVA Facility:[facility] Start: 05-05-2024 End: 05-05-2024 Emergency department patient visit ARLINE CORADO ENERGY PROFESSIONAL-[employer] Facility:A Start: 05-02-2024 End: 05-07-2024 Telephone encounter [...] Start: 04-28-2024 End: 04-28-2024 ambulatory SUSHIL VILLANUEVA Facility:[facility] Start: 04-28-2024 End: 04-28-2024 Patient encounter procedure Sushil Villanueva ENERGY PROFESSIONAL.[employer] Work Phone: OB/Gynecology Comment on above: with uncer tain viability, single or unspecified fetus (Primary Dx); with uncertain dates in first trimester Start: 03-15-2024 End: 03-19-2024 ambulatory HIRA LANGLEY MD Facility:[facility] Start: 03-15-2024 End: 03-15-2024 ambulatory HIRA LANGLEY MD Facility:[facility] Start: 02-19-2024 End: 02-19-2024 ambulatory ARLINE CORADO ENERGY PROFESSIONAL-[employer] Facility:[facility] Start: 02-19-2024 End: 02-19-2024 Patient encounter procedure ARLINE Erick CORADO ENERGY PROFESSIONAL-[employer] [facility] Start: 02-05-2024 End: 02-09-2024 ambulatory ABDI SURYA ENERGY PROFESSIONAL-[employer] Facility:A Start: 01-29-2024 End: 01-29-[address] JOSÉ MIGUEL MAGALLANES MD Facility:A Start: 01-15-2024 End: 01-15-2024 ambulatory MARCELO ISBELL DO Facility:A Start: 01-01-2024 End: 01-05-2024 ambulatory ERLINDA PULIDO-Johanna Facility:[facility] Start: 01-01-2024 End: 01-01-2024 ambulatory ERLINDA WILLINGHAM PA-C Facility:A Start: 12-09-2023 Emergency department patient visit Facility:[facility] Start: 12-09-2023 Admission to [facility] Gila Roth MD Work Phone: Neurosurgery Comment on above: Numbness (Primary Dx ) Start: 12-09-2023 Telemedicine consultation with patient Gila Roth MD Work Phone: Neurosurgery Start: 12-04-2023 End: 12-04-[address] JOSÉ MIGUEL MAGALLANES MD Facility:A Start: 12-04-2023 End: 12-08-[address] JOSÉ MIGUEL MAGALLANES MD Facility:A Start: 11-19-2023 End: 11-19-2023 ambulatory ABDI LONDON ENERGY PROFESSIONAL-[employer] Facility:A Start: 11-05-2023 End: 11-05-[address] JOSÉ MIGUEL MAGALLANES MD Facility:A Start: 10-14-2023 End: 10-15-2023 Emergency department patient visit Adult Manager [facility] Start: 08-29-2023 End: 08-29-2023 ambulatory ERLINDA WILLINGHAM PA-C Facility:A Start: 08-11-2023 End: 08-11-2023 Emergency department patient visit Adult Manager [facility] Start: 05-12-2023 End: 05-12-2023 Emergency department patient visit Adult Manager [facility] Start: 02-13-2023 End: 02-13-2023 Emergency department patient visit Adult Manager [facility] Start: 09-26-2022 End: 09-27-2022 Emergency department patient visit MARCELO ROBLES [facility] Start: 09-26-2022 End: 09-26-2022 Emergency department patient visit Marcelo Robles MD Work Phone: [facility] ED Comment on above: Hypertension, unspec ified type (Primary Dx) Start: 09-25-2022 End: 09-25-2022 Emergency department patient visit Alvin Pryor [facility] Start: 03-05-2022 End: 03-08-2022 Evaluation and management of inpatient JOSSIE HAYES MD [facility] Start: 01-17-2022 End: 01-18-2022 Observation MICHI LEONARD DO [facility] Start: 12-26-2021 End: 12-26-2021 Subsequent hospital visit by physician ANNA GARCÍA Comment on above: RT LOWER LEG PAIN/TR IAGE Start: 12-06-2021 End: 12-06-2021 Patient encounter procedure GATITO ODOM DO [facility] Start: 11-29-2021 End: 11-29-2021 ambulatory NONE NONE Facility:[facility] Start: 08-07-2021 End: 08-07-2021 Emergency department patient visit NANDA G PARIS DO [facility] Start: 05-18-2021 End: 05-18-2021 Emergency department patient visit DR JOSÉ MIGUEL MAGALLANES MD [facility] Start: 03-15-2021 End: 03-15-2021 Emergency department patient visit [facility] Emergency Dept Comment on above: Cough (Primary Dx); Vaginal discharge Start: 03-07-2021 End: 03-07-2021 Emergency department patient visit Isreal Kincaid MD Work Phone: [facility] Emergency Dept Comment on above: Ecstasy abuse [...] nonobstetr ic real-time image complete Sushil Villanueva [employer] Work Phone: Start: 04-28-2024 Antibody screen SUSHIL STATON Comment on above: Order Comment: Speci men Type: BLOOD SPECIMEN Ordering Facility: [facility] Address: [address] [place] [address] Performed By: #### T SPN #### [facility] CLIA [id number] [address] [place] [address] [place] [address] [place] Start: 04-28-2024 Us uterus l imited fetuses Sushil Villanueva YANNICK.[employer] Work Phone: Start: 10-14-2023 Microscopic urinalysis Adult Manager Start: 08-11-2023 Lumbar puncture usin g fluoroscopic guidance Adult Manager Start: 08-11-2023 Microscopic urinalysis Adult Manager Start: 05-12-2023 CT of head without contrast Adult Manager Start: 05-12-2023 Lumbar puncture usin g fluoroscopic guidance Adult Manager Start: 05-12-2023 Microscopic urinalysis Adult Manager Start: 02-13-2023 Plain chest X-ray On Ca ll Start: 02-13-2023 Ultrasonography of deep vein Adult Manager Start: 09-26-2022 Ct thorax w/contrast material Serena Kelly DO Work Phone: Start: 09-26-2022 End: 09-26-2022 Basic metabolic panel calcium total Serena Kelly DO Work Phone: Start: 09-25-2022 Plain chest X-ray Tod F ilmer Start: 09-25-2022 US scan venography o f upper limbs Tod Filmer Start: 03-15-2021 Radiologic exam ches t single view Carlitos English ENERGY PROFESSIONAL - [employer] Work Phone: Start: 03-07-2021 Urnls dip stick/tabl et rgnt auto w/o microscopy Sherin Dawkins ENERGY PROFESSIONAL - [employer] Work Phone: Start: 03-07-2021 Basic metabolic pane l calcium total Sherin Dawkins ENERGY PROFESSIONAL - [employer] Work Phone: Start: 03-07-2021 Ecg routine ecg w/le ast 12 lds w/i&r Isreal Kincaid MD Work Phone: Start: 01-06-2019 Antibody screen Comment on above: Performed By: #### T &S #### [place] [phone] None (qualifier value) DR CARROLL MAGALLANES MD Plan of Treatment Date Care Activity Detail Author Start: 2070 RSV Vaccine (1 - 1-d ose 75+ series) RSV Vaccine (1 - 1-dose 75+ series) [facility] Start: 06-18-2029 Urine microalbumin profile DTaP,Tdap,Td Vaccine (9 - Td or Tdap) [facility] Start: 05-10-2025 [facility] Start: 05-06-2025 [facility] Start: 05-03-2025 End: 05-03-2025 [facility] Start: 03-23-2025 [facility] Start: 02-05-2025 [facility] Start: 02-05-2025 CT of head without contrast Brain/Head without Contrast [facility] Start: 02-05-2025 CT Unspecified body region WO contrast [facility] Start: 01-12-2025 [facility] Start: 05-29-2024 DTaP/Tdap/Td vaccine (2 - Td or Tdap) DTaP/Tdap/Td vaccine (2 - Td or Tdap) [facility] Start: 05-26-2024 End: 05-26-2024 Patient encounter procedure 05/26/2024 1:10 PM EDT Routine Office Visit OB/Gynecology [address] [place], [place] [id number] Cheryl Ricardo MD [address] [place] [id number] NEw OB LMP 02/19 ?? OB/Gynecology Comment on above: NEw OB LMP 02/19 ?? Start: 05-14-2024 End: 05-14-2024 Patient encounter procedure 05/14/2024 1:30 PM EDT Office Visit OB/Gynecology [address] [place] [address] Leela Currie MD [address] [place] [address] IPAS f/u OB/Gynecology Comment on above: IPAS f/u Start: 05-06-2024 End: 05-06-2024 Patient encounter procedure 05/06/2024 2:30 PM EDT Routine Office Visit OB/Gynecology [address] [place] [address] Leela Currie MD [address] [place] [address] OB Routine OB/Gynecology Comment on above: OB Routine Start: 05-06-2024 End: 08-05-2024 CBC panel - Blood by Automated count COMPLETE BLOOD COUNT Lab Routine Threatened miscarriage Expected: 05/06/2024, Expires: 08/05/2024 [facility] Work Phone: Comment on above: Expected: 05/06/2024 , Expires: 08/05/2024 Start: 05-01-2024 End: 05-01-2024 Patient encounter procedure 05/01/2024 1:30 PM EDT Office Visit OB/Gynecology [address] [place] [address] Jose Aranda APRN.[facility] [address] [place] [address] US follow up OB/Gynecology Comment on above: US follow up Start: 05-01-2024 End: 05-01-2024 ambulatory 05/01/2024 1:00 PM EDT Procedure OB/Gynecology [address] [place] [address] with uncertain dates in first trimester [Z34.91] OB/Gynecology Comment on above: with uncer tain dates in first trimester [Z34.91] Start: 04-28-2024 End: 07-28-2024 Hemoglobin A1c in Blood [facility] Comment on above: Expected: 04/28/2024 , Expires: 07/28/2024 Start: 04-28-2024 End: 07-28-2024 TYPE + SCREEN [facility] Comment on above: Expected: 04/28/2024 , Expires: 07/28/2024 Start: 04-28-2024 End: 04-28-2025 US Pelvis PELVIC US [facility] Anc Imaging Routine with uncertain dates in first trimester Expected: 04/28/2024, Expires: 04/28/2025 [facility] Comment on above: Expected: 04/28/2024 , Expires: 04/28/2025 Start: 03-30-2024 Covid-19 Vaccine ( season) Covid-19 Vaccine ( season) [facility] Start: 03-30-2024 Influenza vaccination C [facility] Start: 07-30-2023 Behavioral Health Screening Behavioral Health Screening [facility] Start: 05-12-2023 Bacteria identified in Urine by Culture Urine Culture [facility] Start: 03-30-2023 Covid-19 Vaccine ( season) Covid-19 Vaccine ( season) [facility] Start: 03-30-2022 Influenza vaccination INFLUENZ A (Season Ended) [facility] Start: 02-27-2022 Influenza vaccination Flu vaccine (# 1) [facility] Start: 01-06-2022 PAP TESTING PAP TESTING [facility] Start: 01-06-2022 Screening for malign ant neoplasm of cervix [facility] Start: 03-30-2021 Influenza vaccination Flu vaccine (# 1) [facility] Work Phone: Start: 2016 Screening for malign ant neoplasm of cervix Pap smear [facility] Start: 2014 Urine microalbumin profile DTAP,TDAP,TD (1 - Tdap) [facility] Start: 2013 Anxiety Screening Anxiety Screening [facility] Start: 2013 Depression Screening Depression Scre ening [facility] Start: 2013 Hepatitis C screening Hepatitis C sc reen [facility] Start: 11-11-2012 HPV Vaccine (2 - 3-d ose series) HPV Vaccine (2 - 3-dose series) [facility] Start: 2010 HIV screening HIV screen [facility] Start: 2009 PEDS TO ADULT TRANSITION ANNUAL ASSESSMENT PEDS TO ADULT TRANSITION ANNUAL ASSESSMENT [facility] Start: 2007 Adult depression screening assessment DEPRESSION SCREENING [facility] Start: 2007 COVID-19 Vaccine (1) COVID-19 Vaccin e (1) [facility] Work Phone: Start: 2007 Depression Screen Depression Screen [facility] Start: 2007 PEDS TO ADULT TRANSITION INITIAL DISCUSSION PEDS TO ADULT TRANSITION INITIAL DISCUSSION [facility] Start: 2006 HPV VACCINE (1 - 2-d ose series) HPV VACCINE (1 - 2-dose series) [facility] Start: 2001 PNEUMOCOCCAL (1 - PCV) PNEUMOCOCCAL (1 - PCV) [facility] Start: 2000 COVID-19 VACCINE (#1) COVID-19 VACCI NE (#1) [facility] Start: 1996 Varicella vaccine (1 of 2 - 2-dose childhood series) Varicella vaccine (1 of 2 - 2-dose childhood series) [facility] Start: 1995 COVID-19 Vaccine (#1) COVID-19 Vacci ne (#1) [facility] Bacteria identified in Urine by Culture URINE CULTURE Microbiology Routine with uncertain dates in first trimester 04/28/2024 12:14 PM EDT [facility] End: 03-15-2021 C. Trachomatis / N. [...] for 8 Occurrences starting 04/28/2024 until 04/28/2025 [facility] Work Phone: Comment on above: 2x per week for 8 Oc currences starting 04/28/2024 until 04/28/2025 Choriogonadotropin.b eta subunit [Units/volume] in Serum or Plasma HCG QUANTITATIVE Lab Routine with uncertain dates in first trimester 04/28/2024 12:12 PM EDT [facility] EKG 12 Lead EKG 12 Lead ECG STAT 03/07/2021 12:24 AM EDT [facility] Work Phone: Patient Education [facility] Patient referral [facility] Work Phone: End: 03-15-2021 Respiratory Panel, [...] Routine Threatened miscarriage 05/06/2024 4:56 PM EDT [facility] Immunizations Immunization Date Immunization Notes Care Provider Fa mary 06-18-2019 tetanus toxoid, redu jose diphtheria toxoid, and acellular pertussis vaccine, adsorbed ARLINE MICKIE ENERGY PROFESSIONAL-PROTECTION [employer] [facility] 02-18-2019 hepatitis A vaccine, adult dosage ARLINE MICKIE ENERGY PROFESSIONAL-PROTECTION [employer] [facility] 05-31-2014 pneumococcal polysaccharide vaccine, [address] JOSÉ MIGUEL MAGALLANES MD [facility] 05-29-2014 tetanus toxoid, redu jose diphtheria toxoid, and acellular pertussis vaccine, adsorbed DR JOSÉ MIGUEL MAGALLANES MD [facility] 10-14-2012 hepatitis A vaccine, pediatric dosage, unspecified formulation ARLINE MICKIE ENERGY PROFESSIONAL-[employer]CTION [employer] [facility] 10-14-2012 Human Papillomavirus Quadval ARLINE MICKIE ENERGY PROFESSIONAL-PROTECTION [employer]F [employer] [facility] 10-14-2012 meningococcal polysaccharide (groups A, C, Y and W-135) diphtheria toxoid conjugate vaccine (MCV4P) ARLINE MICKIE ENERGY PROFESSIONAL-PROTECTION [employer] [facility] 10-14-2012 tetanus toxoid, redu jose diphtheria toxoid, and acellular pertussis vaccine, adsorbed ARLINE MICKIE ENERGY PROFESSIONAL-[employer]CTION [employer] [facility] 03-21-2000 measles/mumps/rubell a virus vaccine ARLNIE MICKIE ENERGY PROFESSIONAL-[employer]CTION [employer] [facility] 03-21-2000 poliovirus vaccine, inactivated ARLINE MICKIE ENERGY PROFESSIONAL-PROTECTION [employer] [facility] 04-06-1998 hepatitis B pediatri c vaccine ARLINE MICKIE ENERGY PROFESSIONAL-[employer]CTION [employer] [facility] 01-28-1997 measles/mumps/rubell a virus vaccine ARLINE MICKIE ENERGY PROFESSIONAL-[employer]CTION [employer] [facility] 01-28-1997 poliovirus vaccine, inactivated ARLINE MICKIE ENERGY PROFESSIONAL-PROTECTION [employer] [facility] 1995 hepatitis B pediatri c vaccine ARLINE MICKIE ENERGY PROFESSIONAL-PROTECTION [employer] [facility] 1995 hepatitis B pediatri c vaccine ARLINE MICKIE ENERGY PROFESSIONAL-PROTECTION [employer] [facility] 1995 poliovirus vaccine, inactivated ARLINE MICKIE ENERGY PROFESSIONAL-PROTECTION [employer] [facility] 1995 poliovirus vaccine, inactivated ARLINE MICKIE ENERGY PROFESSIONAL-PROTECTION [employer] [facility] 1995 hepatitis B pediatri c vaccine ARLINE MICKIE ENERGY PROFESSIONAL-PROTECTION [employer] [facility] 1995 hepatitis B pediatri c vaccine ARLINE MICKIE ENERGY PROFESSIONAL-PROTECTION [employer]F [employer] [facility] Payers Date Payer Category Payer Private Health Insurance [id number] 2023 Medicaid [id number] 2023 Private Health Insurance [id number] [facility] [id number] 2020-Present [phone] [address] [place] [address] [id number]. [id number] 2018 Medicaid [facility] MEDICAID [facility] MEDICAID [id number] 2018-Present [phone] [address] [place] [address] Medicaid [id number]. [id number] 1995 Unknown [id number] 2.16.840.1.624115.3.579.2. 419 1995 Unknown [id number] 2.16840.1.702846.3.579.2. 627 1995 Unknown [id number] 2.840.1.440699.3.579.2. 1995 Unknown [id number] 2.840.1.206444.3.579.2. 1995 Unknown [id number] 2.840.1.563382.3.579.2. 1995 Unknown [id number] 2.840.1.154551.3.579.2. 1995 Unknown [id number] 2.840.1.413916.3.579.2. 1995 Unknown [id number] 2.16840.1.596246.3.579.2. 62 1995 Unknown [id number] 2.840.1.142597.3.579.2. 1995 Unknown [id number] 2.840.1.815238.3.579.2. 62 1995 Unknown [id number] 2.16840.1.574081.3.579.2. 1995 Unknown [id number] 2.840.1.962027.3.579.2. 627 1995 Unknown [id number] 2.840.1.322203.3.579.2. 1995 Unknown [id number] 840.1.130820.3.579.2. 1995 Unknown [id number] .840.1.224861.3.579.2. 1995 Unknown [id number] .840.1.298755.3.579.2. 1995 Unknown [id number] 840.1.983359.3.579.2. 1995 Unknown [id number] .840.1.471778.3.579.2. 1995 Unknown [id number] 840.1.950608.3.579.2. 1995 Unknown [id number] 840.1.034031.3.579.2. 1995 Unknown [id number] 09.14.830.1.513095.3.579.2. 1995 Unknown [id number] 840.1.992862.3.579.2. 1995 Unknown [id number] 840.1.789636.3.579.2. 1995 Unknown [id number] 840.1.734787.3.579.2. 1995 Unknown [id number] 840.1.018970.3.579.2. 1995 Unknown [id number] 840.1.836817.3.579.2. 627 1959 Self-pay Unknown [id number] 840.1.977836.3.579.2. 630 Unknown [id number] 2840.1.696392.3.579.2. 630 Unknown [id number] 840.1.591066.3.579.2. 630 Unknown [id number] 2.16.840.1.029410.3.579.2. 630 Unknown [id number] 2.16.840.1.430636.3.579.2. 462 Unknown [id number] 2.16.840.1.266466.3.579.2. 462 Unknown [id number] 2.16.840.1.494247.3.579.2. 462 Unknown [id number] 2.16.840.1.886426.3.579.2. 462 Unknown [id number] 2.16.840.1.378652.3.579.2. 462 Unknown [id number] 2.16.840.1.315717.3.579.2. 462 Unknown [id number] 2.16.840.1.729189.3.579.2. 462 Unknown [id number] 2.16.840.1.448474.3.579.2. 462 Unknown [id number] 2.16.840.1.474489.3.579.2. 462 Unknown [id number] 2.16.840.1.396107.3.579.2. 462 Social History Date Type Detail Facility Start: 02-19-2018 End: 09-10-2018 Tobacco smoking status MAIS Never smoker [facility] Start: 09-10-2018 End: 06-24-2023 Tobacco use and exposure Never used [facility] Start: 09-10-2018 End: 05-01-2024 Alcohol intake Current drinker of alcohol (finding) [facility] Work Phone: Start: 1995 Sex Assigned At Not on file [facility] Work Phone: Start: 09-16-2022 End: 09-26-2022 Exposure to SARS-CoV-2 (event) Not sure [facility] Start: 05-19-2020 End: 08-22-2024 Light tobacco smoker (finding) [facility] Sex Assigned At [facility] Start: 12-19-2018 End: 05-10-2025 Tobacco smoking status NHIS Smokes tobacco daily [facility] Start: 10-22-2019 Alcohol intake Ex-drinker (finding) [facility] Start: 01-17-2022 End: 01-11-2025 Tobacco smoking status Ex-smoker (finding) [facility] History of tobacco use Current smoker [facility] History of tobacco use Cigarette Smoker [facility] Start: 06-24-2023 End: 04-28-2024 History of Social function [facility] Start: 06-24-2023 End: 04-28-2024 Tobacco use panel [facility] Start: 05-14-2025 National Score (1-10 0), lower number is lower risk 75 [facility] Start: 06-08-2023 Alcohol Comment socially [facility] Has the Attender, [employer], or [employer] threatened to shut off services in your home in past 12Mo No [facility] (I/We) worried whemargareth er (my/our) food would run out before (I/we) got money to buy more. Never true [facility] Start: 12-20-2013 Sex Female (finding) [facility] Start: 1995 Sex Assigned At Female [facility] Start: 05-06-2025 Tobacco smoking stat us [facility] Current some day smoker [facility] Sexual Sexually active: Yes. [facility] Medical Equipment Procedure Code Equipment Code Equipment Origin al Text Equipment Identifier Dates TEST BLOOD SUGAR EVERY DAY Start: 2024 See Instructions , check BS daily, # 100 EA, 5 Refill(s), Pharmacy: [facility] #[id number], Type 2 diabetes mellitus, 178, cm, 03/15/24 14:17:00 EDT, Height, 104.8, kg, 03/15/24 14:17:00 EDT, Dosing Weight Start: 04-18-2024 See Instructions , BD VENANCIO 2 GEN PEN NDL [id number], # 100 EA, 5 Refill(s), Pharmacy: [facility] #[id number], 178, cm, 03/15/24 14:17:00 EDT, Height, 97, kg, 05/05/24 17:35:00 EDT, Dosing Weight Start: 05-12-2024 See Instructions , test BS daily, # 100 EA, 5 Refill(s), [id number], 177.8, cm, 02/19/24 15:03:00 EDT, Height, 93, kg, 02/05/24 15:51:00 EDT, Dosing Weight Start: 03-05-2024 See Instructions , check BS daily, # 100 EA, 5 Refill(s), [id number], Type 2 diabetes mellitus, 178, cm, 03/15/24 14:17:00 EDT, Height, 104.8, kg, 03/15/24 14:17:00 EDT, Dosing Weight Start: 04-18-2024 See Instructions , BD VENANCIO 2 GEN PEN NDL [id number], # 100 EA, 5 Refill(s), [facility][id number], 178, cm, 03/15/24 14:17:00 EDT, Height, 97, kg, 05/05/24 17:35:00 EDT, Dosing Weight Start: 05-12-2024 See Instructions , test BS daily, # 100 EA, 5 Refill(s), [id number], 177.8, cm, 02/19/24 15:03:00 EDT, Height, 93, kg, 02/05/24 15:51:00 EDT, Dosing Weight Start: 03-05-2024 See Instructions , check BS daily, # 100 EA, 5 Refill(s), Pharmacy: [facility] #[id number], Type 2 diabetes mellitus, 178, cm, 03/15/24 14:17:00 EDT, Height, 104.8, kg, 03/15/24 14:17:00 EDT, Dosing Weight Start: 04-18-2024 See Instructions , BD VENANCIO 2 GEN PEN NDL [id number], # 100 EA, 5 Refill(s), Pharmacy: [facility] #[id number], 178, cm, 03/15/24 14:17:00 EDT, Height, 97, kg, 05/05/24 17:35:00 EDT, Dosing Weight Start: 05-12-2024 See Instructions , test BS daily, # 100 EA, 5 Refill(s), Pharmacy: [facility] #[id number], 177.8, cm, 02/19/24 15:03:00 EDT, Height, 93, kg, 02/05/24 15:51:00 EDT, Dosing Weight Start: 03-05-2024 See Instructions , check BS daily, # 100 EA, 5 Refill(s), [id number], Type 2 diabetes mellitus, 178, cm, 03/15/24 14:17:00 EDT, Height, 104.8, kg, 03/15/24 14:17:00 EDT, Dosing Weight Start: 04-18-2024 See Instructions , BD VENANCIO 2 GEN PEN NDL [id number], # 100 EA, 5 Refill(s), Pharmacy: [facility] #[id number], 178, cm, 03/15/24 14:17:00 EDT, Height, 97, kg, 05/05/24 17:35:00 EDT, Dosing Weight Start: 05-12-2024 See Instructions , test BS daily, # 100 EA, 5 Refill(s), Pharmacy: [facility] #[id number], 177.8, cm, 02/19/24 15:03:00 EDT, Height, 93, kg, 02/05/24 15:51:00 EDT, Dosing Weight Start: 03-05-2024 Functional Status Date Assessment Result Facility 05-14-2025 Functional Status Awake [facility] 05-14-2025 Functional Status Maintained [facility] 09-30-2024 Functional Status Independent [facility] 09-30-2024 Functional Status ID band on, Allergy Band on, Call device within reach, Bed in low position, Wheels locked, Upper/Half-Length side-rails up, Visitor at bedside, Safety level maintained [facility] 03-08-2022 Functional Status Sitting in bed , Remains in NICU [facility] 03-08-2022 Functional Status [facility] 03-08-2022 Functional Status [facility] 2022 Functional Status [facility] 03-05-2022 Functional Status [facility] 03-05-2022 Functional Status [facility] 01-18-2022 Functional Status Ambulation in Room [facility] 01-17-2022 Functional Status Home independently [facility] 01-17-2022 Functional Status Rooming in [facility] 01-17-2022 Functional Status [facility] Mental Status Date Assessment Result Facility 05-14-2025 Mental Status Orientation Oriented x 4 [facility] 05-14-2025 Mental Status [facility] 05-14-2025 Mental Status [facility] 05-10-2025 Cognitive function Level Of Consciousness Awake [facility] Work Phone: 03-22-2025 Cognitive function Level Of Cons ciousness Awake;Alert;Appropriate;Follow s Commands [facility] Work Phone: 01-11-2025 Cognitive function Voice/Name [facility] Work Phone: 09-30-2024 Mental Status Orientation Oriented x 4 [facility] 09-30-2024 Mental Status [facility] Clinical Notes 03-07-2021 to 05-14-2025 Note Date [...] what activities are safe for you. Take gdsa-hiy-fhjpjyx and prescription medicines only as told by [...] 10/22/2001 Document Revised: 07/19/2018 Document Reviewed: 03/01/2018 [employer] Patient Education 2020 [email or web address]. 05/14/2025 11:44:58 Dilation and Curettage or Vacuum [...] tampons. ?Have sexual intercourse. General instructions Take hwum-yuu-qsduiay and prescription medicines only as told by [...] 07/13/2001 Document Revised: 06/28/2018 Document Reviewed: 02/15/2017 [employer] Patient Education 2020 [email or web address]. 05/14/2025 11:44:48 Managing Loss Managing Loss loss [...] picture taken. Make arrangements. Ask for a rastafari or blessing. Hospitals have staff members who [...] yourself. Follow these instructions at home: Take unig-nat-xlvxpwv and prescription medicines only as told by [...] Human Services Office on Women's Health: www.womenshealth.gov [place] Association: www.americanpregnancy.org Contact a health care provider [...] 09/26/2018 Document Revised: 11/05/2019 Document Reviewed: 09/26/2018 [employer] Patient Education 2020 [employer] Follow Up Care 05/11/2025 14:52:40 With:CASEY MOULTON MD Address: [address] [place] [address] [place] [address]- [phone] When: Unknown Comments:Call to schedule followup postsurgery appointment with me next [facility] 05-14-2025 Evaluation + Plan note Extrac alexandro from: Title:Clinical Document Author:CASEY MOULTON MD Date:05/14/25 ADAIR ADMISSION HISTORY AN D PHYSICIAL CHIEF COMPLAINT: Missed AB HISTORY OF PRESENT ILLNESS: Patient is a 30-year-old 7 para 6 at approximately 7 weeks estimated gestational age who presented to the emergency room at [facility] a little over a week ago with complaints of bleeding. At that time had an IUP and has had continued bleeding since. hCGs have fallen and were rechecked twice this week and again were considerably lower than when she was at the emergency room at [facility]. She continues to have passage of clots and some cramping. Ultrasound that was performed by me definitely showed a failed . REVIEW OF SYSTEMS: Heavy vaginal bleeding with cramping and passage of clots. No urinary or bowel complaints. Review of systems otherwise unremarkable. ACTIVE PROBLEMS: (19) ADD (attention deficit disorder) ([id number]) Anemia (191885496) Breast pain, left (2693961897) Ganglion cyst (8232694991) Gestational diabetes (20190514) Gestational diabetes (20190514) Gestational diabetes mellitus, class A>1< (348316393) Hypokalemia (43473117) Iron deficiency anemia (965991655) Left hip pain (43160176) Missed (9482512164) Prediabetes (2594659375) (094712344) Tobacco use (3860061912) Type 2 diabetes mellitus (091205442) Urinary tract infection (964295039) Vaginal yeast infection (377950941) Viral pharyngitis (5491571) Wrist pain (4054935312) MEDICATIONS: Active Inpt Meds: cefOXitin (Mefoxin) Start: [...] RBC3.77L Hgb11.2L Hct32.9L MCV87.2 MCH29.6 MCHC33.9 RDW16.0H Wuyinzls291 MPV8.9 Neutrophil %58.8 Lymphocyte %31.6 Monocyte %6.2 [...] 04/23/25 Radiology* US Breast Left Complete 09/15/24 [facility] 10-16-2025 Note Discharge Instructions Thank you for allowing [facility] to assist you with your healthcare needs. The following is importantdischarge information regarding your hospital visit. Your Care Team ARLINE CORADO APRN-PROTECTION CHIEF INDUSTRIAL PLANT DR. MOULTON Your Diagnosis Missed Missed ab Post-op pain What to do next Follow Up Appointments Follow Up with CASEY MOULTON MD Where:[address] [facility] [place] [address]- [phone] Additional Information: Call to schedule followup postsurgery [...] Post-op pain Duration: 5 Days Pickup at [facility] New ibuprofen (ibuprofen 600 mg oral tablet) 1 tab(s) by mouth Every 6 hours as needed for for pain Duration: 7 Days Take with food or milk. Pickup at [facility] Unchanged DME (Blood Glucose Test Machine) See instructions Type 2 diabetes mellitus 1 glucometer Unchanged DME (Blood Glucose Test Strips) See instructions Type 2 diabetes mellitus check BS daily Unchanged DME (Dexcom G7 Potwin) See instructions Type 2 diabetes mellitus Use [...] instructions BD VENANCIO 2 GEN PEN NDL [id number] Unchanged DME (Lancets) See instructions test BS [...] TABLET BY MOUTH EVERY DAY Pharmacy Information [facility]: [address] [place], [place] [phone] Please take this list to your next [...] what activities are safe for you. Take tidm-teq-ujgvqvg and prescription medicines only as told by [...] 10/22/2001 Document Revised: 07/19/2018 Document Reviewed: 03/01/2018 [employer] Patient Education 2020 [email or web address]. Dilation and Curettage or Vacuum Curettage, Care [...] ? Have sexual intercourse. General instructions Take fbvo-sqc-wbbnpjy and prescription medicines only as told by [...] 07/13/2001 Document Revised: 06/28/2018 Document Reviewed: 02/15/2017 [employer] Patient Education 2020 [employer] Managing Loss loss can happen any [...] picture taken. Make arrangements. Ask for a rastafari or blessing. Hospitals have staff members who [...] yourself. Follow these instructions at home: Take uamm-sza-aeujwis and prescription medicines only as told by [...] Human Services Office on Women's Health: www.womenshealth.gov Iranian Association: www.americanpregnancy.org Contact a health care provider [...] Document Reviewed: 09/26/2018 Elsevier Patient Education 2020 [employer] Additional Information VACCINATE! IT SAVES LIVES! Members of the community who have not yet received the COVID-19 vaccine and would like to receive it can visit one of [facility] vaccine clinics. There are many vaccine clinic locations within the State. For locations and available times, please visit [email or web address]/. It is important to note that some COVID mobile vaccine clinics are held outdoors and may be canceled in rainy or stormy conditions. To learn more about pediatric vaccinations (ages 5-11), we invite you to visit the [facility] webpage. https://www.[email or web address].org/pages/[email or web address]-Jfjwksbfiqv-Vuprhtikra-Phstr-Rhe stions.htmlTo learn more about the COVID-19 vaccine, we invite you to visit the CDC website for a list of frequently asked questions.https://www.cdc.gov/coronavirus/2019-ncov/vaccines/faq.html [facility] Patient Portal Access Instructions: Stay connected with your healthcare team and access your personal medical information anytime with the [facility] Patient Portal. Please follow the directions below to create your [employer] account: 1.Access the email account you provided upon registration to the hospital/physician office.2.Look for an invitation email from [facility].3.Open the email and access the invitation link: AcceptInvitation to [facility] [employer].4.Fill in the required french to create your account. To access your account, visit [email or web address]. or scan the [employer] code above. Click the blue button labeled [...] who you will allowto register on the [employer] Patient Portal for access to your information. You can also access the [employer] Patient Portal on the [facility] [employer] lisette. Simply click on Patient Portal and then log into your account. If you would like to receive a full copy of your medical records, please contact the [facility] Medical Records Department by calling [phone], Sunday through Sunday between 8 a.m. and [...] Call your local pharmacy or go to [email or web address] to find one close to you.3.Make use of household items: Use cat litter or old coffee grounds to dispose medications if other options arenot available. Mix your drugs with these household products, seal them in an airtight container andthrow it into the garbage. Call [facility]: [phone] to be sure your drugs can be [...] that I should contact my d apror. Patient/Slinger Sequins Signature: Date/Time: Relationship to Patient: Witness Name/Signature: Date/Time: [facility]10-16-2025 Anesthesiology Consult note Patient: BETSY MESA [...] by DIONNE FROST on 05/14/2025 12:08 PM [facility]10-16-2025 Note ADAIR ADMISSION HISTORY AND PHYSICIAL CHIEF COMPLAINT: Missed AB HISTORY OF PRESENT ILLNESS: Patient is a 30-year-old 7 para 6 at approximately 7 weeks estimated gestational age who presented to the emergency room at [facility] a little over a week ago with complaints of bleeding. At that time had an IUP and has had continued bleeding since. hCGs have fallen and were rechecked twice this week and again were considerably lower than when she was at the emergency room at [facility]. She continues to have passage of clots and some cramping. Ultrasound that was performed by me definitely showed a failed . REVIEW OF SYSTEMS: Heavy vaginal bleeding with cramping and passage of clots. No urinary or bowel complaints. Review of systems otherwise unremarkable. ACTIVE PROBLEMS: (19) ADD (attention deficit disorder) ([id number]) Anemia (179939712) Breast pain, left (2483757729) Ganglion cyst (7985757839) Gestational diabetes (20190514) Gestational diabetes (93782864) Gestational diabetes mellitus, class A>1< (157521784) Hypokalemia (72585829) Iron deficiency anemia (673715915) Left hip pain (58892612) Missed (2396439908) Prediabetes (5554127079) (621356597) Tobacco use (5221164929) Type 2 diabetes mellitus (740271810) Urinary tract infection (372243293) Vaginal yeast infection (241655784) Viral pharyngitis (7687872) Wrist pain (7221347848) MEDICATIONS: Active Inpt Meds: cefOXitin (Mefoxin) Start: [...] RBC3.77L Hgb11.2L Hct32.9L MCV87.2 MCH29.6 MCHC33.9 RDW16.0H Gswxwjhs334 MPV8.9 Neutrophil %58.8 Lymphocyte %31.6 Monocyte %6.2 [...] CASEY MOULTON MD on 05/14/2025 11:41 AM [facility]10-16-2025 Anesthesiology Consult note Patient: BETSY MESA Age: 30 years Sex: Female : 1995 Associated Diagnoses: None Author: DIONNE FROST ENERGY PROFESSIONAL-HUMAN RESOURCES BENEFITS MANAGER Preoperative Information Time of last food or [...] Instructions, BD VENANCIO 2 GEN PEN NDL 65BU5RM, 100 EA, 5 Refill(s) Dexcom G7 Potwin: See Instructions, Use reader daily for blood [...] ADD (attention deficit disorder) / SNOMED CT [id number]-Z81XG3TFG3W1 / Confirmed Anemia / SNOMED CT 254051335 / Confirmed Vaginal yeast infection / SNOMED CT 713743475 / Confirmed Ganglion cyst / SNOMED CT 5810909536 / Confirmed Gestational diabetes mellitus, class A>1< / SNOMED CT 135228906 / Confirmed Left hip pain / SNOMED CT 81621113 / Confirmed Hypokalemia / SNOMED CT 51348895 / Confirmed Iron deficiency anemia / SNOMED CT 980248367 / Confirmed Missed / SNOMED CT 0995408010 / Confirmed Breast pain, left / SNOMED CT 0246196541 / Confirmed Wrist pain / SNOMED CT 4889766843 / Confirmed Prediabetes / SNOMED CT 9343534300 / Confirmed / SNOMED CT 122715719 / Confirmed Type 2 diabetes mellitus / SNOMED CT 264505347 / Confirmed Urinary tract infection / SNOMED CT 757257688 / Confirmed Viral pharyngitis / SNOMED CT 0940864 / Confirmed, Active Problems (19) ADD (attention deficit disorder) Anemia Breast pain, left Ganglion cyst Gestational diabetes Gestational diabetes Gestational diabetes mellitus, class A>1< Hypokalemia Iron deficiency anemia Left hip pain Missed Prediabetes Tobacco use Type 2 diabetes mellitus Urinary tract infection Vaginal yeast infection Viral pharyngitis Wrist pain Histories Past Medical History: Active ADD (attention deficit disorder) (93440G1Y-[id number]-Q50LP3GYI0V6) Resolved (868091658): Onset on 01/17/2022 at 26 years. Resolved on 03/05/2022 at 26 years. (899635665): Onset on 10/23/2018 at 23 years. Resolved on 08/04/2019 at 24 years. Comments: 02/27/2017 EDT 15:51 EDT - SYSTEM System added from documentation. Status documented as Yes on Admission (350565563): Onset on 10/16/2016 at 21 years. Resolved in 2018 at 22 years. Induction of labor (634152127): Onset on 05/28/2014 at 19 years. Resolved. (532932925): Onset on 10/20/2013 at 18 years. Resolved in 2014 at 19 years. (885146680): Onset on 08/16/2013 at 18 years. Resolved on 05/29/2014 at 19 years. (687301225): Resolved. Comments: 01/01/2022 EDT 0:46 EDT - SYSTEM System added from documentation. Status documented as Yes on Admission Family History: Diabetes mellitus type 1 Sister Diabetes mellitus type 2 Mother Seizure Sister Procedure history: None (074555286). Social History: Social & Psychosocial Habits Alcohol [...] Surgeon SN - CAt - Role Performed HUMAN RESOURCES BENEFITS MANAGER SN - CAt - Role Performed Vascular Nurse 1 SN - CAt - Role Performed Scrub 1 SN - CAt - Role Performed Employment Specialist/Program Manager 1 05/13/2025 12:42 EDT hCG, quantitative 1,796.1 mIU/mL NA . Assessment and Plan [place] [employer] Anesthesiologists (ASA) physical status classification: Class III. Anesthetic Preoperative Plan Premedication: intravenous. Anesthetic technique: General. Induction: intravenously. Maintenance airway: Laryngeal mask airway. Postoperative pain management: Per surgeon. Risks discussed: nausea, vomiting, sore throat. Informed consent: signed by patient. Digitally Signed by DIONNE FROST on 05/14/2025 11:30 AM [facility]10-12-2025 Discharge summary [facility] Medical Records Department [address] [place] [address] Emergency Department Summary 05/10/25 MR#: [id number] Acct: [id number] Name: BETSY MESA Rep #:[id number] : 1995 30 From: Nelson Ulloa DO [...] states she alsohas an appointment with her TIEDOWN OPERATOR in roughly 24 hours but because of the return bleeding she was concerned and presents for evaluation [facility] Medical History Migraine Anxiety Paresthesias [...] the need for repeat ultrasound or emergent TIEDOWN OPERATOR consultation and she is otherwise safe for [...] % (Auto) 54.4 Lymph % (Auto) 37.3 Dickey % (Auto) 5.7 Eos % (Auto) 2.0 Baso % (Auto) 0.3 Absolute Neuts (auto) 4.0 Absolute Lymphs (auto) 2.75 Nucleated RBC % 0 HCG, Quant 27256 H Discharge Plan Triage Chief Complaint: Vag Bld, Preg ED Provider: Nelson Ulloa Dx/Rx/DC Orders Clinical Impression: Vaginal bleeding in , Anxiety, Abnormal collection of fluid in uterinecavity Instructions: Bleeding During Early Prescriptions: No Action cephalexin 500 mg capsule 500 mg PO TID 5 Days Qty: 15 0RF PNV 048-eeke-hkyfbp-dha 90 mg iron- 1 mg-200 mg capsule 1 cap PO DAILY Qty: 30 0RF Stand Alone Forms: ED Work / School Excuse Primary Care Provider: ARLINE CORADO Referrals: ARLINE CORADO [Other] Activity Restrictions/Additional Instructions: Please keep your appointment for tomorrow/Sunday, May 11 with your TIEDOWN OPERATOR. Your blood volume has remained stable and your marker increased from 12,000-22,000-36,000 indicating a normal progression in . Return to the ER should you have any further concerns Print Language: Salvadorean Disposition Disposition: Home, Self Care Discharge Date/Time: 05/10/25 03:55 What to do if you have Problems For any increased pain, shortness of breath, bleeding, nausea or vomiting, chest pain, or any unexpected problems, contact your Primary Care Provider. Call [facility] ([phone]) or report to the closest Emergency Room. Call 911 if necessary. 05/10/25 0510 Cosigner Signature (if applicable): CC: ARLINE CORADO ~ Signed [facility]10-08-2025 Radiology Diagnostic study note [facility] Imaging Services [address] [place] [address] Transvaginal w/Preg US MR#: [id number] Acct: [id number] Name: BETSY MESA Rep #: [id number] : 1995 F 30 From: Aubrie Meléndez MD PCP: ARLINE CORADO Status: REG ER Study:Transvaginal w/Preg US Date of Exam: 05/06/25 Exam# [id number] Ordering Dr: René Mohan MD PROCEDURE: TRANSVAGINAL [...] x 3.4 x 1.8 cm. Reading Location: [id number]-[id number]-[id number] CC: Dr. René Mohan MD; ARLINE CORADO ~ Director Of Real Estate: Signed [facility]10-05-2025 Discharge summary [facility] Medical Records Department [address] [place] [address] Emergency Department Summary 05/03/25 MR#: [id number] Acct: [id number] Name: BETSY MESA Rep #:[id number] : 1995 30 From: Ludwig child DO [...] secondary to early cramping. Follow-up with her TIEDOWN OPERATOR Lamonte. She confirmed understand the plan. Return [...] % (Auto) 57.7 Lymph % (Auto) 34.3 Dickey % (Auto) 5.6 Eos % (Auto) 1.8 Baso % (Auto) 0.4 Absolute Neuts (auto) 4.8 Absolute Lymphs (auto) 2.84 Nucleated RBC % 0 Sodium 136 Potassium 4.3 Chloride 104 Carbon Dioxide 21.7 Anion Gap 11 BUN 9 Creatinine 0.69 L Estim Creat Clear Calc 159.34 Est GFR (MDRD) Non-Af 120 BUN/Creatinine Ratio 12.3 Glucose 126 H Calcium 9.6 HCG, Quant 89397 H Urine Color Yellow Urine Clarity Clear Urine pH 6.0 Ur Specific [place] 1.025 Urine Protein 30 H Urine Glucose [...] be paid on follow-up imaging. Reading Location: [facility] Brain CT 05/03/25 21:10 IMPRESSION: No acute intracranial CT abnormality. Reading Location: [facility] Discharge Plan Triage Chief Complaint: ED Provider: Ludwig Aranda Dx/Rx/DC Orders Prescriptions: No Action metformin 500 mg tablet 500 mg PO DAILY ibuprofen 600 mg tablet 600 mg PO 4X/DAY PRN (Reason: pain) Qty: 40 0RF Primary Care Provider: ARLINE CORADO Referrals: ARLINE CORADO [Other] Print Language: Salvadorean What to do if you have Problems For any increased pain, shortness of breath, bleeding, nausea or vomiting, chest pain, or any unexpected problems, contact your Primary Care Provider. Call [facility] ([phone]) or report to the closest Emergency Room. Call 911 if necessary. 05/03/25 2029 Cosigner Signature (if applicable): CC: ARLINE CORADO ~ Signed [facility]10-05-2025 Radiology Diagnostic study note [facility] Imaging Services [address] [place] [address] Transvaginal w/Preg US MR#: [id number] Acct: [id number] Name: BETSY MESA #: [id number] : 1995 F 30 From: Omid Verdugo MD PCP: ARLINE CORADO Status: REG E R Study:Transvaginal w/Preg US Date of Exam: 05/03/25 Exam# [id number] Ordering Dr: Ludwig Gold DO PROCEDURE: TRANSVAGINAL [...] be paid on follow-up imaging. Reading Location: [id number] CC: Dr. Ludwig Aranda DO; ARLINE CORADO ~ Director Of Real Estate: Signed [facility]10-05-2025 Radiology Diagnostic study note [facility] Imaging Services [address] [place] [address] Brain/Head without Contrast MR#: [id number] Acct: [id number] Name: BETSY MESA Rep #: [id number] : 1995 F 30 From: Omid Verdugo MD PCP: ARLINE CORADO Status: REG E R Study:Brain/Head without Contrast Date of Exa m: 05/03/25 Exam# [id number] Ordering Dr: Ludwig Gold DO PROCEDURE: BRAIN/HEAD [...] No acute intracranial CT abnormality. Reading Location: [facility] CC: Dr. Ludwig Aranda DO; ARLINE CORADO ~ Director Of Real Estate: Signed [facility]10-05-2025 Discharge summary Author Ludwig Aranda [facility] Note Date/Time May 03, 2025 11 :29pm [facility] Medical Records Department [address] [place] [address] Emergency Department Summary 05/03/25 MR#: [id number] Acct: [id number] Name: BETSY MESA Rep #:[id number] : 1995 30 From: Ludwig child DO [...] intact Psych: Cooperative, appropriate mood and affect [facility] Medical History Anxiety Paresthesias [...] secondary to early cramping. Follow-up with her TIEDOWN OPERATOR Lamonte. She confirmed understand the plan. Return [...] % (Auto) 57.7 Lymph % (Auto) 34.3 Dickey % (Auto) 5.6 Eos % (Auto) 1.8 Baso % (Auto) 0.4 Absolute Neuts (auto) 4.8 Absolute Lymphs (auto) 2.84 Nucleated RBC % 0 Sodium 136 Potassium 4.3 Chloride 104 Carbon Dioxide 21.7 Anion Gap 11 BUN 9 Creatinine 0.69 L Estim Creat Clear Calc 159.34 Est GFR (MDRD) Non-Af 120 BUN/Creatinine Ratio 12.3 Glucose 126 H Calcium 9.6 HCG, Quant 55905 H Urine Color Yellow Urine Clarity Clear Urine pH 6.0 Ur Specific [place] 1.025 Urine Protein 30 H Urine Glucose [...] be paid on follow-up imaging. Reading Location: [facility] Brain CT 05/03/25 21:10 IMPRESSION: No acute intracranial CT abnormality. Reading Location: [facility] Discharge Plan Triage Chief Complaint: ED Provider: Ludwig Aranda Dx/Rx/DC Orders Prescriptions: No Action metformin 500 mg tablet 500 mg PO DAILY ibuprofen 600 mg tablet 600 mg PO 4X/DAY PRN (Reason: pain) Qty: 40 0RF Primary Care Provider: ARLINE CORADO Referrals: ARLINE CORADO [Other] Print Language: Salvadorean What to do if you have Problems For any increased pain, shortness of breath, bleeding, nausea or vomiting, chest pain, or any unexpected problems, contact your Primary Care Provider. Call [facility] ([phone]) or report to the closest Emergency Room. Call 911 if necessary. 05/03/252328 <Electronically signed by Ludwig Aranda DO> Cosigner Signature (if applicable): CC: ARLINE CORADO ~ Signed [facility] Work Phone: 1(870) 628-509308-26-2025 Note. MICRO - Microbiology PROCEDURE: Urine Culture [...] Locations *1: This test was performed at: [facility], [address] [place] [address], [address]- , [facility]08-24-2025 Hospital Discharge instructionsAdditional Instructions Your blood work today revealed no clinically significant findings and the blood test for was negative. Your history exam and symptoms are most consistent with a viral infection. This should resolve spontaneously over the course of 7 to 10 days. Return to the ER should you have any further concernsWNationwide [facility]'s Hospital Work Phone: 1(162) 353-785707-23-2025 Hospital Discharge instructions Patient Education 02/18/2025 18:07:52 [...] stores without a prescription. You may use sljy-uvx-bdlidgd pain medicine to control pain, unless another [...] or tingling in the hand or arm 3623-1096 [employer]. [address] [place] [address], [place] [address]. All rights reserved. This information is not [...] stores without a prescription. You may use ktyk-jky-fjfukrj pain medicine to control pain, unless another [...] or tingling in the hand or arm 9394-0611 [employer]. [address] [place] [address]. All rights reserved. This information is not intended as a substitute for professional medical care. Always follow yourhealthcare professional's instructions. Follow Up Care 02/18/2025 16:58:33 With:ARLINE CORADO APRN-PROTECTION [employer]IEF [employer] Address: [address] [place] [phone] [phone] When:2-4 days With:THERESA TOLEDO MD, Orthopedic Address: [address] [place] [address] [address] [facility] [place] [address] [phone] When:2-4 days [facility] 07-23-2025 Note Discharge Instructions Thank you for allowing [facility] to assist you with your healthcare needs. [...] Up with ARLINE CORADO When:Within 2-4 days Where:[facility] [place] [address]- [phone] Follow Up with THERESA TOLEDO MD, Orthopedic When:Within 2-4 days Where:[address] [place] [address] [address] [facility] [place] [address]- [phone] Allergies Vicodin Medications Please ask your primary [...] check BS daily Unchanged DME (Dexcom G7 Potwin) See instructions Type 2 diabetes mellitus Use [...] instructions BD VENANCIO 2 GEN PEN NDL 46JF2KE Unchanged DME (Lancets) See instructions test BS [...] stores without a prescription. You may use tuow-elq-knyzjny pain medicine to control pain, unless another [...] or tingling in the hand or arm 1136-87[address] [employer]. [address] [place], [place] [address]. All rights reserved. This information is not [...] stores without a prescription. You may use gnqj-fwe-aqaquvx pain medicine to control pain, unless another [...] or tingling in the hand or arm 1678-6613 [employer]. [address] [place] [address], [place] [address]. All rights reserved. This information is not intended as a substitute for professional medical care. Always follow yourhealthcare professional's instructions. Additional Information VACCINATE! IT SAVES LIVES! Members of the community who have not yet received the COVID-19 vaccine and would like to receive it can visit one of [facility] vaccine clinics. There are many vaccine clinic locations within the [facility]. For locations and available times, please visit [email or web address] It is important to note that some COVID mobile vaccine clinics are held outdoors and may be canceled in rainy or stormy conditions. To learn more about pediatric vaccinations (ages 5-11), we invite you to visit the [facility] webpage. [email or web address] [email or web address] learn more about the COVID-19 vaccine, we invite you to visit the CDC website for a list of frequently asked questions. https://www.cdc.gov/coronavirus/2019-ncov/vaccines/faq.html [facility] Patient Portal Access Instructions: Stay connected with your healthcare team and access your personal medical information anytime with the [employer] Patient Portal. If you would like a full copy of your medical records please contact the [facility] Medical Records Department Sunday through Sunday between 8a.m. and 4:30p.m. Please follow the directions below to access the portal: 1.Access the email account you provided upon registration to the hospital.2.Look for an invitation email from [facility].3.Open the email and access the invitation link: Accept Invitation to [facility]4.Fill in the required french to create your account. Sign into [email or web address] with your username and password that [...] you will allow to register on the [facility] Patient Portal for access to your information. You can also access the [facility] Patient Portal on the [employer]. Simply click on Health Records under [employer] and then click on the Eventstagr.am logo. HOW TO SAFELY DISPOSE OF PRESCRIPTION [...] Call your local pharmacy or go to [email or web address] to find one close to you.3.Make use of household items: Use cat litter or old coffee grounds to dispose medications if other options arenot available. Mix your drugs with these household products, seal them in an airtight container andthrow it into the garbage. Call [facility]: [phone] to be sure your drugs can be [...] that I should contact my d octor. Patient/Slinger Sequins Signature: Date/Time: Relationship to Patient: Witness Name/Signature: Date/Time: [facility]07-23-2025 Note* Exam Date Time Procedure Performing Provider Status 02/18/25 5:34 PM XR Wrist Minimum 3 Views Right SHERIN MENDEZ DO; Auth (Verified) [id number] ORIGINAL EXAMINATION: THREE XRAY VIEWS OF THE [...] Sign Date: 02/18/2025 5:53:14 PM Ordering Provider: [facility]06-16-2025 Discharge summary [facility] Medical Records Department [address] [place] [address] Emergency Department Summary 01/11/25 MR#: [id number] Acct: [id number] Name: BETSY MESA Rep #:[id number] : 1995 29 From: Oseas Aviles MD [...] past with a negative workup done at [facility] 1 to 2 years ago. She denies [...] signs stable afebrile blood pressure is little dwqsgjow111 or 97. She does not look septic [...] normal. NIH 0. No facial droop. Normal digital marketing manager strength. Fingertip to nose rcum-qt-wgyn within normal limits. No drift. Const Vital [...] normal Motor Exam: strength 5/5 throughout Coordination: fahxif-ft-ndcb test normal and iipi-zs-ikug test normal Psych mental status grossly normal, [...] % (Auto) 54.7 Lymph % (Auto) 34.7 Dickey % (Auto) 7.3 Eos % (Auto) 2.6 [...] IMPRESSION: No acute intracranial process. Reading Location: [facility] Discharge Plan Triage Chief Complaint: Numb/Ting [...] with your primary care physician. Print Language: Salvadorean Disposition Disposition: Home, Self Care What to do if you have Problems For any increased pain, shortness of breath, bleeding, nausea or vomiting, chestpain, or any unexpected problems, contact your Primary Care Provider. Call [facility] ([phone]) or report tothe closest Emergency Room. Call 911 if necessary. 01/12/25 0144 Cosigner Signature (if applicable): CC: No Primary Care Physician ~ Signed [facility]06-15-2025 Radiology Diagnostic study note [facility] Imaging Services [address] [place] [address] Brain/Head without Contrast MR#: [id number] Acct: [id number] Name: BETSY MESA Rep #: [id number] : 1995 F 29 From: Aubrie Meléndez MD PCP: Care Physician,No Primary Status: REG ER Study:Brain/Head without Contrast Date of Exa m: 01/11/25 Exam# [id number] Ordering Dr: Evelin Aviles MD PROCEDURE: BRAIN/HEAD [...] IMPRESSION: No acute intracranial process. Reading Location: [id number] CC: Dr. Oseas Aviles MD; No Primary Care Physician ~ Director Of Real Estate: Signed [facility]06-15-2025 Discharge summary Author Oseas Aviles [facility] Note Date/Time January 12, 2025 1:44 am [facility] Medical Records Department [address] [place] [address] Emergency Department Summary 01/11/25 MR#: [id number] Acct: [id number] Name: BETSY MESA Rep #:[id number] : 1995 29 From: Oseas Aviles MD [...] past with a negative workup done at [facility] 1 to 2 years ago. She denies [...] normal. NIH 0. No facial droop. Normal digital marketing manager strength. Fingertip to nose namh-ri-iktl within normal limits. No drift. Const Vital [...] normal Motor Exam: strength 5/5 throughout Coordination: hcuomh-ie-joxp test normal and hdfl-dw-dssp test normal Psych mental status grossly normal, [...] % (Auto) 54.7 Lymph % (Auto) 34.7 Dickey % (Auto) 7.3 Eos % (Auto) 2.6 [...] IMPRESSION: No acute intracranial process. Reading Location: [facility] Discharge Plan Triage Chief Complaint: Numb/Ting [...] with your primary care physician. Print Language: Salvadorean Disposition Disposition: Home, Self Care What to do if you have Problems For any increased pain, shortness of breath, bleeding, nausea or vomiting, chestpain, or any unexpected problems, contact your Primary Care Provider. Call [facility] ([phone]) or report to the closest Emergency Room. Call 911 if necessary. 01/12/25 0144 <Electronically signed by Oseas Aviles MD> Cosigner Signature (if applicable): CC: No Primary Care Physician ~ Signed [facility] Work Phone: 1(237) 858-433103-04-2025 Hospital Discharge instructions Patient Education 09/30/2024 11:35:01 [...] face You have trouble talking or seeing 1143-1268 [employer]. [address] [place] [address]. All rights reserved. This information is not intended as a substitute for professional medical care. Always follow yourhealthcare professional's instructions. Follow Up Care 09/30/2024 10:02:36 With:[facility] Address: When:2-4 days With:[facility]ADO [facility] Address: [facility] [place] [address]- [phone] When:2-4 days [facility] 03-04-2025 Note Discharge Instructions Thank you for allowing [facility] to assist you with your healthcare needs. [...] with ARLINE CORADO When:Within 2-4 days Where:[address] [facility] [place] [address]- [phone] Allergies Vicodin Medications Please ask your primary [...] check BS daily Unchanged DME (Dexcom G7 Potwin) See instructions Type 2 diabetes mellitus Use [...] Unchanged DME (DME MISCellaneous) See instructions BD VEANNCIO 2 GEN PEN NDL [id number] Unchanged DME (Lancets) See instructions test BS [...] face You have trouble talking or seeing [id number] [employer]. [address] [place] [address], [place] [address]. All rights reserved. This information is not intended as a substitute for professional medical care. Always follow yourhealthcare professional's instructions. Additional Information VACCINATE! IT SAVES LIVES! Members of the community who have not yet received the COVID-19 vaccine and would like to receive it can visit one of [facility] vaccine clinics. There are many vaccine clinic locations within the [facility]. For locations and available times, please visit www.gettheshot.coronavirus.[place].gov/. It is important to note that some COVID mobile vaccine clinics are held outdoors and may be canceled in rainy or stormy conditions. To learn more about pediatric vaccinations (ages 5-11), we invite you to visit the [facility] webpage. https://www.[facility].org/pages/5337-Hxglw-Cudwfcttedn-Ihhihjcald-Kiyre-Kzv stions.htmlTo learn more about the COVID-19 vaccine, we invite you to visit the CDC website for a list of frequently asked questions. https://www.cdc.gov/coronavirus/2019-ncov/vaccines/faq.html [facility] Patient Portal Access Instructions: Stay connected with your healthcare team and access your personal medical information anytime with the [facility] [employer] Patient Portal. If you would like a full copy of your medical records please contact the [facility] Medical Records Department Sunday through Sunday between 8a.m. and 4:30p.m. Please follow the directions below to access the portal: 1.Access the email account you provided upon registration to the [facility].2.Look for an invitation email from [facility].3.Open the email and access the invitation link: Accept Invitation to [facility]4.Fill in the required french to create [...] you will allow to register on the [facility] Patient Portal for access to your information. You can also access the [facility] Patient Portal on the JEDI MIND lisette. Simply click on Health Records under OneSpot and then click on the Eventstagr.am logo. HOW TO SAFELY DISPOSE OF PRESCRIPTION [...] Call your local pharmacy or go to [email or web address] to find one close to you.3.Make use of household items: Use cat litter or old coffee grounds to dispose medications if other options arenot available. Mix your drugs with these household products, seal them in an airtight container andthrow it into the garbage. Call [facility]: [phone] to be sure your drugs can be [...] that I should contact my d octor. Patient/Slinger Sequins Signature: Date/Time: Relationship to Patient: Witness Name/Signature: Date/Time: [facility]10-08-2024 Nurse Note* Irma Lin RN - [...] 20 Bleeding:Light Pain Ratin/10 Irma Lin RN [facility]10-08-2024 Instructions* Patient Instructions* Deana Sethi RN [...] and showers are OK. Important Phone Numbers: [facility] Appointments in [facility] [facility] ( Early Assessment Clinics) Tiffany Cormier [facility] at [phone] [facility] at [phone] [facility] at [phone] After 4:30 PM or on weekends, you may reach the on-call [facility] [employer] [facility] by calling the clinic where you wereseen. [...] for diagnosis or termination for medical reasons. http://www.Recensus.Gungroo/ [facility]: ending a for a abnormality http://www.healthtalkonline.org/Pregnancy_children/Ending_a_pregnancy_for_fetal_ abnormality Ending a Wanted : support for patients and families ending a after or maternal medical diagnosis https://endingawantedpregnancy.Gungroo Defending Terese: one person's story about loss and collected resources. http://www.Pager Taya Gift: headquarters in [place] but with online support group https://www.Shop Points/kdvwzm-ftxt-iqogakq-groups.html LOCAL RESOURCES [facility], [facility] https://my.[facility].org/locations/[employer]/guest-services/suppo rt Juan C.E.L.(Families Experiencing Early Loss) [facility] https://consultqd.[facility].org/yfardexjk-qtyjidzcb-phhidizyjdt-program-james gshylr-uadnocbd-pdsqkgyy/ [facility] - counseling services [phone] or toll free at [phone] [facility] Support [facility] (not specific to loss) https://my.[facility].org/patients/information/bereavement/support-groups [facility] Counselors with experience with families facing the loss of a baby before . This service may be covered by your insurance. If not, [facility] will not turn anyone away because of inability to pay. or [phone] Ramirez Blake, local counselor, not associated with [facility] [phone] Some of our families have recommended Ramirez [...] for induction of labor) documented in this encounterGrand [facility]10-[facility] Nurse Note* Irma Lin, TRUMAN - 05/06/2024 [...] Ratin/10 Irma Lin RN documented in this encounterGrand [facility]10-[facility]-2024 NoteHNO ID: [id number] Author: LEELA CURRIE MD Service: ? Author Type: Physician Type: Progress Notes Filed: 05/07/2024 10:35 Note Text: Betsy Mesa is a 29 year old female who presents for problem visit for vaginal bleeding, falling HCG levels. Patient's last menstrual period was 02/18/2024 (within days). Last week was seen for this and dx w/ SAB. Last night started bleeding and went to [facility] ED but long wait so went to [place] ED and they offered patient to go to [facility] or f/u in office. Patient was d/jose home to f/u today. Having waves of cramping nad passing clots, bleeding heavier than a period. Soaked through pads last night then it slowed and passed more clots. OB History T3 L3 SAB0 IAB0 Ectopic0 Multiple0 Live Births3 Ncqa Specialist History LMP: 02/18/2024 (Within Days), Recent Age at Menarche: Age at First : Age at Menopause: Ncqa Specialist History Comments: Sexual Activity: Yes; Male [...] discussed with the Patient or Patient's Authorized Slinger Sequins. As applicable, any other physician, advance practice provider, medical student, or other health professional student that will be observing or involved in the sensitive examination for educational or training purposes was discussed with the Patient or Authorized Slinger Sequins. The Patient or Authorized Slinger Sequins has agreed to proceed with the sensitive examination. (Sensitive examination includes inspection and/or palpation of the breasts, pelvis, prostate and anorectal regions). EXAM: Wt 212 lb (96.2kg) LMP 02/18/2024 GENERAL: in pain, female in mild distress ABDOMEN: soft, non-tender, and no masses PELVIC: external genitalia normal, normal Bartholin's glands, urethra, Standing Pine's glands, no vulvar lesions, no cervical lesions, [...] Currie MD Procedure note (more content not included)...[facility] 05-06-2024 History of Present illness Narrative* Leela Currie MD - 05/06/2024 2:58 PM EDT Betsy Mesa is a 29 year old female who presents for problem visit for vaginal bleeding, falling HCG levels. Patient's last menstrual period was 02/18/2024 (within days). Last week was seen for thisand dx w/ SAB. Last night started bleeding and went to [facility] ED but long wait so went [place] they offered patient to go to [facility] or f/u in office. Patient was d/jose home to f/u today. Having waves of cramping nad passing clots, bleeding heavier than a period. Soaked through pads last night then it slowed and passed more clots. OB History T3 L3 SAB0 IAB0 Ectopic0 Multiple0 Live Births3 Ncqa Specialist History LMP: 02/18/2024 (Within Days), Recent Age at Menarche: Age at First : Age at Menopause: Ncqa Specialist History Comments: Sexual Activity: Yes; Male [...] discussed with the Patient or Patient's Authorized Slinger Sequins. As applicable, any other physician, advance practice provider, medical student, or other health professional student that will be observing or involved in the sensitive examination for educational or training purposes was discussed with the Patient or Authorized Slinger Sequins. The Patient or Authorized Slinger Sequins has agreed to proceed with the sensitive examination. (Sensitive examination includes inspection and/or palpation of the breasts, pelvis, prostate and anorectal regions). EXAM: Wt 212 lb (96.2kg) LMP 02/18/2024 GENERAL: in pain, female in mild distress ABDOMEN: soft, non-tender, and no masses PELVIC: external genitalia normal, normal Bartholin's glands, urethra, Standing Pine's glands, no vulvar lesions, no cervical lesions, [...] prn Leela Currie MD documented in this encounterGrand [facility]10-[facility]-2024 Telephone encounter Note * Telephone Encounter - Scarlett Robledo RN - 05/05/2024 12:23 PM EDT Spoke with patient. She will have another HCG level drawn today since she has an appointment with [facility] on Sunday. Bleeding a little more. Changing a pad every 2-3 hours for comfort. Not soaking a pad. Scarlett Robledo RN [facility]10-07-2024 Miscellaneous Notes* Telephone Encounter - Scarlett [...] 05/02/2024 1:59 PM EDT ----- Message from Joes Aranda APRN.CNM sent at 05/02/2024 1:12 PM EDT ----- HCG level is decreasing. Patient aware that she needs to complete follow up levels. Jose Aranda APRN.CNM documented in this encounterGrand Lake [facility]10-04-2024 Telephone encounter Note * Telephone Encounter - Irma Lin RN - 05/02/2024 1:59 PM EDT CP notified Pt. Please leave phone note open to f/u on HCG results. Irma Lin RN [facility]10-04-2024 Telephone encounter Note* Telephone Encounter - Irma Lin RN - 05/02/2024 1:59 PM EDT ----- Message from Jose Aranda APRN.CNM sent at 05/02/2024 1:12 PM EDT ----- HCG level is decreasing. Patient aware that she needs to complete follow up levels. Jose Aranda APRN.CNM [facility]10-03-2024 NoteHNO ID: [id number] Author: KESHAWN MOSCOSO MD Service: ? 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 Encounter Diagnosis ICD-10-CM 1. with uncertain dates in first trimester Z34.91 Please see report under imaging tab. 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 Encounter Diagnosis ICD-10-CM 1. with uncertain dates in first trimester Z34.91 Please see report under imaging tab. Keshawn Moscoso MD May 01, 2024 8:37 PM documented in this encounterGrand Lake Joint [facility]10-03-2024 NoteHNO ID: [id number] Author: JOSE ARANDA APRN.CNM Service: ? Author Type: Thermometer Production Worker Type: Progress Notes Filed: 05/01/2024 14:31 Note [...] she started spotting and cramping this morning. Ncqa Specialist History LMP: 02/18/2024 (Within Days), Age at Menarche: Age at First : Age at Menopause: Ncqa Specialist History Comments: Sexual Activity: Yes; Male [...] - No s/s of ectopic per US garage door technician - Current gestational sac is 82 [...] voice understanding - Support provided Jose Aranda APRN.[facility]10-03-2024 History of Present illness Narrative* Jose Aranda APRN.[facility] - 05/01/2024 1:45 PM EDT Betsy Mesa [...] she started spotting and cramping this morning. Ncqa Specialist History LMP: 02/18/2024 (Within Days), Age at Menarche: Age at First : Age at Menopause: Ncqa Specialist History Comments: Sexual Activity: Yes; Male [...] - No s/s of ectopic per US garage door technician - Current gestational sac is 82 [...] provided Jose Aranda APRN.CNM documented in this encounterGrand Lake Joint [facility]09-30-2024 NoteHNO ID: [id number] Author: SUSHIL VILLANUEVA APRN.CNP Service: ? Author [...] L3 SAB0 IAB0 Ectopic0 Multiple0 Live Births3 Ncqa Specialist History LMP: 02/18/2024 (Within Days), Having periods Age at Menarche: Age at First : Age at Menopause: Ncqa Specialist History Comments: Sexual Activity: Yes; Male [...] Assessed 04/28/2024 REVIEW OF SYSTEMS Expanded ROS: PROFESSOR OF GRAPHIC DESIGN: + amenorrhea Allergies and current medication updated:Yes SENSITIVE EXAM: The sensitive examination was discussed with the Patient or Patient's Authorized Slinger Sequins. As applicable, any other physician, advance practice provider, medical student, or other health professional student that will be observing or involved in the sensitive examination for educational or training purposes was discussed with the Patient or Authorized Slinger Sequins. The Patient or Authorized Slinger Sequins has agreed to proceed with the sensitive [...] - ICD9: V22.1, ICD10: Z34.91 - POC LIVESTOCK SALES REPRESENTATIVE ULTRASOUND - HCG QUANTITATIVE - COMPLETE BLOOD COUNT - TYPE + SCREEN - URINE CULTURE - PELVIC US WHI - HEMOGLOBIN A1C RTO for formal ultrasound and visit after or sooner as needed. Sushil Villanueva APRN.PROTECTION CHIEF INDUSTRIAL PLANT Medical Decision Making: Problems: Moderate: New problem with uncertain prognosis Data: Unique test result(s) reviewed: 2 Unique test(s) ordered: 3+ Risk: Low: Low risk from testing/treatment Medical Decision Making Level: 4 - [facility] History of Present illness Narrative* Sushil Villanueva APRN.PROTECTION CHIEF INDUSTRIAL PLANT - 04/28/2024 11:28 AM EDT Betsy Mesa [...] L3 SAB0 IAB0 Ectopic0 Multiple0 Live Births3 Ncqa Specialist History LMP: 02/18/2024 (Within Days), Having periods Age at Menarche: Age at First : Age at Menopause: Ncqa Specialist History Comments: Sexual Activity: Yes; Male [...] Assessed 04/28/2024 REVIEW OF SYSTEMS Expanded ROS: PROFESSOR OF GRAPHIC DESIGN: + amenorrhea Allergies and current medication updated:Yes SENSITIVE EXAM: The sensitive examination was discussed with the Patient or Patient's Authorized Slinger Sequins. As applicable, any other physician, advance practice provider, medical student, or other health professional student that will be observing or involved in the sensitive examination for educational or training purposes was discussed with the Patient or Authorized Slinger Sequins. The Patient or Authorized Slinger Sequins has agreed to proceed with the sensitive [...] - ICD9: V22.1, ICD10: Z34.91 - POC LIVESTOCK SALES REPRESENTATIVE ULTRASOUND - HCG QUANTITATIVE - COMPLETE BLOOD [...] Level: 4 - Moderate documented in this encounterGrand Lake Joint [facility] District [facility] Hospital09-27-2024 Evaluation + Plan note Future Scheduled Tests Laboratory* Thyroid Stimulating Hormone 04/25/24 * Free T4 04/25/24 * Free T3 04/25/24 Radiology* US Breast Left Complete 09/15/24 [facility] 08-18-2024 Note. MICRO - Microbiology PROCEDURE: [...] Locations *1: This test was performed at: [facility], [address] [place] [address], [address]- , [facility] ([place])02-06-2024 Note. MICRO - Microbiology PROCEDURE: Affirm Pathogens [...] Locations *1: This test was performed at: [address], [facility] , [facility]01-03-2024 Note. MICRO - Microbiology PROCEDURE: Urine Culture [...] Locations *1: This test was performed at: [address], [facility] , [facility] ([facility]01-02-2024 Note. MICRO - Microbiology PROCEDURE: Affirm Pathogens [...] Locations *1: This test was performed at: [facility], [address] [place] [address], [address]- , [facility] ([place])12-11-2023 NoteHNO ID: [id number] Author: GARTH POLANCO RN Service: ? Author Type: Registered Nurse Type: Nursing Progress Note Filed: 12/11/2023 12:58 Note Text: Patient given AVS no questions at this time. Patient walked to main entrance for discharge.[facility]05-13-2024 NoteHNO ID: [id number] Author: LORETA FROST MD Service: Hospital Medicine Author Type: Physician Type: Progress Notes Filed: 12/10/2023 17:34 Note Text: DEPARTMENT OF HOSPITAL MEDICINE Hospital Medicine/Primary Attending: Loreta Frost MD NIGHT AND WEEKEND COVERAGE: After 7pm please page [phone] Subjective: Seen and examined at bedside. No [...] 89912/09/232343 -- 12/09/232344 activity - mobilize patient (in,mn) SIGNATURE: Loreta Frost MD PATIENT NAME: Betsy Mesa DATE: December 10, 2023 TIME: 4:02 PM PAGER/CONTACT #: Team color pager Disclaimer: Portions of this note may have been generated using [employer] voice recognition software. Reasonable efforts were made to correct any dictation errors that resulted due to the programming of this software but some may still be present. Please note, the time of this note does not reflect the time I saw this patient today, but the time of this documentation.[facility]05-13-2024 NoteHNO ID: [id number] Author: BOB JOYA LISW Service: Care Management Author Type: Information Security Specialist Type: Care Mgt Progress Note Filed: [...] 10, 2023 TIME: 3:18 PM PAGER/CONTACT #: [phone]23 NoteHNO ID: [id number] Author: GILA ROTH MD Service: ? Author Type: Physician Type: Progress Notes Filed: 12/09/2023 18:41 Note Text: TELESTROKE DOCUMENTATION Name: Betsy Mesa : 1995 Referring Site: [facility] Referring Provider: Dr. Muniz Last Known Well (Date/Time): 12/09/23 1615 Neurologist Callback (Date/Time): 12/09/23 2128 Chief Complaint: numbness of right face and [...] a telestroke. Thank you for contacting the [facility] Telestroke Network. I appreciate the opportunity for allowing me to participate in Betsy Mesa's care. Please feel free to contact me and/or the [facility] Telestroke Network at any time if you have any further questions or need additional assistance. Lester Roht MD December 09, 2023 6:40 [facility] History of Present illness Narrative* Gila Roth MD - 12/09/2023 6:40 PM EDT TELESTROKE DOCUMENTATION Name: Betsy Evelin Mesa : 1995 Referring Site: [facility] Referring Provider: Dr. Muniz Last Known Well (Date/Time): 12/09/23 161 Neurologist Callback (Date/Time): 12/09/23 8870 Chief Complaint: numbness of right face and [...] a telestroke. Thank you for contacting the [facility] Telestroke Network. I appreciate the opportunity for allowing me to participate in Betsy Mesa's care. Please feel free to contact me and/or the [facility] Telestroke Network at any time if you have any further questions or need additional assistance. Lester Roth MD December 09, 2023 6:40 PM documented in this encounterGrand Lake Joint Township District [facility] Hospital05-09-2024 Note. MICRO - Microbiology PROCEDURE: Urine Culture [*1] SOURCE: Urine, Clean Catch BODY SITE: COLLECTED DATE/TIME: 12/04/2023 13:30 EDT RECEIVED DATE/TIME: 12/05/2023 07:26 EDT START DATE/TIME: 12/05/2023 07:26 EDT FREE TEXT SOURCE: FINAL REPORTS Final Report [] Verified Date/Time/Personnel: 12/06/2023 14:21 EDT 10,000 - 50,000 cfu/ml Mixed growth consistent with normal urogenital marilu. Performing Locations *1: This test was performed at: [address], [facility] , [facility] ([place])08-11-2023 Hospital Discharge instructions* Additional Discharge Instructions Please keep well hydrated and take your medication as prescribed and follow up closely with your primary care doctor. If the symptoms worsen or new symptoms develop return to the Emergency Department (ED) immediately. Call your doctor for additional questions. ED . Instruction/Education Provided DI for Keke reynoldscharissa -- [facility] 02-28-2023 Hospital Discharge instructions* Discharge Instructions* [...] care or concern. documented in this encounterBON TellWise Phone: [phone] 263-999908-10-2022 Note Discharge Instructions Thank you for allowing [facility] to assist you with your healthcare needs. The following is importantdischarge information regarding your hospital visit. Your Care Team PHYSICIAN, NONE What to do next Follow Up Appointments Follow Up with [facility], CLINIC When In 6 weeks 04/18/2022 EDT Why: Follow-up as needed Where: [address] [facility] (Mon-Fri from 8:30am - 5:00pm) [place] [address]- Follow Up with [facility] food program; When Someone Will Contact You [...] for as needed for constipation Pickup at [facility] #[id number] New ibuprofen (ibuprofen 600 mg oral tablet) 1 tab(s) by mouth Every 6 hours as needed for for pain Take with food or milk. Pickup at [facility] #[id number] New insulin glargine (Lantus 100 units/ mL10 ml vial solution) 22 unit(s) Subcutaneous (INT) Once a day (in the evening) Refills: 5 Patient needs 6 week supply of 22 units daily Pickup at [facility] #62902 Changed cyclobenzaprine (cyclobenzaprine 5 mg oral tablet) 1 tab(s) by mouth Three (3) times a day Duration: 7 Days Pickup at [facility] #59508 Unchanged famotidine (Pepcid 20 mg oral tablet) 1 tab(s) by mouth Once a day Unchanged multivitamin, (PNV Select) by mouth Once a day Pharmacy Information [facility] #[id number]: [address], [place] [id number] [phone] What How Much When Comments Stop Taking [...] you. Follow these instructions at home: Take bckl-acx-uutjwnd and prescription medicines only as told by [...] 03/19/2015 Document Revised: 08/22/2019 Document Reviewed: 05/06/2018 [employer]ac[employer] Patient Education 2020 [employer] Hemorrhage hemorrhage is excessive blood loss [...] spinach, red meat, and legumes. Take any wkku-nmq-rvjdiei and prescription medicines only as told by [...] 10/05/2004 Document Revised: 06/28/2018 Document Reviewed: 02/16/2017 [employer] Patient Education 2020 [employer] Home Care Instructions After Delivery After [...] decreases and the color of blood gets plc engineer. Bright red and increased flow may reoccur [...] tender for several weeks. Take prescription or ncfp-hod-mishkmm medications for pain with your care givers [...] straining when trying to pass a stool. Vkqj-nyw-dcopurv medications, stool softeners, can be used. Check [...] to receive it can visit one of [facility] vaccine clinics. There are many vaccine clinic locations within the [facility]. For locations and available times, please visit www.gettheshot.coronavirus.[place].org. It is important to note that some COVID mobile vaccine clinics are held outdoors and may be canceled in rainy orstormy conditions. To learn more about pediatric vaccinations (ages 5-11), we invite you to visit the [facility] webpage. https://www.[facility].org/pages/6422-Ktswm-Toufbmshhmw-Ieoanligws-Rxgab-Iug stions.htmlTo learn more about the COVID-19 vaccine, we invite you to visit the [facility] website for a list of frequently asked questions. https://brandon.[employer]/assets/Rrsvsuci-kcs-Attvohwk/nxxoa-Dupadqq-Blirtbegjx _Asked-Questions.pdf [facility] Patient Portal Access Instructions: Stay connected with your healthcare team and access your personal medical information anytime with the [employer] Patient Portal.If you would like a full copy of your medical records, please contact the [facility] Medical Records Department, Sunday through Sunday between 8a.m. and 4:30p.m. Please follow the directions below to access the portal: 1.Access the email account you provided upon registration to the [facility].2.Look for an invitation email from [facility].3.Open the email and access the invitation link: Accept Invitation to [employer]4.Fill in the required french to create your account. Sign into [email or web address] with your username and password that you [...] you will allow to register on the [employer] Patient Portal for access to your information. You can also access the [employer] Patient Portal on the [employer]. Simply click on Health Records under OneSpot and then click on the Eventstagr.am logo. HOW TO SAFELY DISPOSE OF PRESCRIPTION [...] Call your local pharmacy or go to [email or web address] to find one close to you.3.Make use of household items: Use cat litter or old coffee grounds to dispose medications if other options arenot available. Mix your drugs with these household products, seal them in an airtight container andthrow it into the garbage. Call [facility]: [phone] to be sure your drugs can be [...] that I should contact my d octor. Patient/Slinger Sequins Signature: Date/Time: Relationship to Patient: Witness Name/Signature: Date/Time: [facility]-2305 Note A. Received in formalin, labeled with [...] less than 15% ofthe overall disc volume. Slinger Sequ[employer] sections in 3 cassettes. Dictated by [facility] 08-09-2022 Note A. Received in formalin, labeled [...] less than 15% ofthe overall disc volume. Slinger [employer] sections in 3 cassettes. Dictated by [facility] 08-09-2022 Hospital Discharge instructions Patient Education 03/07/2022 [...] you. Follow these instructions at home: Take uhqp-exg-rxubmfq and prescription medicines only as told by [...] 03/19/2015 Document Revised: 08/22/2019 Document Reviewed: 05/06/2018 CellNovo Patient Education 2020 [employer]. 03/07/2022 07:46:22 Hemorrhage Hemorrhage hemorrhage is [...] spinach, red meat, and legumes. Take any rtpb-adz-sdrvlrm and prescription medicines only as told by [...] 10/05/2004 Document Revised: 06/28/2018 Document Reviewed: 02/16/2017 [employer]ovo Patient Education 2020 [email or web address]. 03/07/2022 07:46:19 7- Home Care Instructions After [...] decreases and the color of blood gets plc engineer. Bright red and increased flow may reoccur [...] tender for several weeks. Take prescription or vmpp-sjb-utfblyb medications for pain with your care givers [...] straining when trying to pass a stool. Qheq-oey-calrgsh medications, stool softeners, can be used. Check [...] flu symptoms.) Follow Up Care 03/05/2022 09:44:05 With:[facility]ED[facility] OPERATOR[facility] CLINIC Address: [address] [place] [address] (Mon-Fri from 8:30am - 5:00pm) [place] [address]- When:04/18/2022 Comments:Follow-up as needed With:[facility] food program; Address:Unknown When: Unknown [facility] 08-09-2022 Note Discharge Instructions Thank you for allowing [facility] to assist you with your healthcare needs. The following is importantdischarge information regarding your hospital visit. Your Care Team PHYSICIAN, NONE What to do next Follow Up Appointments Follow Up with [facility] OPERATOR, CLINIC When In 6 weeks 04/18/2022 EDT Why: Follow-up as needed Where: [address] (Mon-Fri from 8:30am - 5:00pm) [place] [address]- Follow Up with [facility] food program; When Someone Will Contact You [...] needed for constipation Pickup at [facility] #[facility]114 New ibuprofen (ibuprofen 600 mg oral tablet) 1 tab(s) by mouth Every 6 hours as needed for for pain Take with food or milk. Pickup at [facility] #10012 New insulin glargine (Lantus 100 units/ mL10 ml vial solution) 22 unit(s) Subcutaneous (INT) Once a day (in the evening) Refills: 5 Patient needs 6 week supply of 22 units daily Pickup at [facility] #35247 Changed cyclobenzaprine (cyclobenzaprine 5 mg oral tablet) 1 tab(s) by mouth Three (3) times a day Duration: 7 Days Pickup at [facility] #84588 Unchanged famotidine (Pepcid 20 mg oral tablet) 1 tab(s) by mouth Once a day Unchanged multivitamin, (PNV Select) by mouth Once a day Pharmacy Information [facility] #23628: [address], [place] [id number] [phone] What How Much When Comments Stop Taking [...] you. Follow these instructions at home: Take ykpj-ier-zrwsmwt and prescription medicines only as told by [...] 03/19/2015 Document Revised: 08/22/2019 Document Reviewed: 05/06/2018 ElseDogVacay Patient Education 2020 [employer]. Hemorrhage hemorrhage is excessive blood loss [...] spinach, red meat, and legumes. Take any wuts-msg-fhbwxuo and prescription medicines only as told by [...] 10/05/2004 Document Revised: 06/28/2018 Document Reviewed: 02/16/2017 [employer]ovo Patient Education 2020 [employer]. Home Care Instructions After Delivery After [...] decreases and the color of blood gets plc engineer. Bright red and increased flow may reoccur [...] tender for several weeks. Take prescription or uvdu-hjz-ttarftm medications for pain with your care givers [...] straining when trying to pass a stool. Jwry-dtv-mmgqzld medications, stool softeners, can be used. Check [...] to receive it can visit one of [facility] vaccine clinics. There are many vaccine clinic locations within the [facility]. For locations and available times, please visit [email or web address]. It is important to note that some COVID mobile vaccine clinics are held outdoors and may be canceled in rainy orstormy conditions. To learn more about pediatric vaccinations (ages 5-11), we invite you to visit the [facility] webpage. https://www.[facility].org/pages/1995-Jdduz-Bktysngeyyb-Snagekxadb-Ljwdf-Bkf stions.htmlTo learn more about the COVID-19 vaccine, we invite you to visit the Eventstagr.am website for a list of frequently asked questions. https://FreedomPop.Mission Control Technologies/assets/Qgbiywez-shc-Dxbgbuhg/mjwwj-Uxvlokx-Wlpieqkrwv _Asked-Questions.pdf [facility] Patient Portal Access Instructions: Stay connected with your healthcare team and access your personal medical information anytime with the [facility] Patient Portal.If you would like a full copy of your medical records, please contact the [facility] Medical Records Department, Sunday through Sunday between 8a.m. and 4:30p.m. Please follow the directions below to access the portal: 1.Access the email account you provided upon registration to the [facility].2.Look for an invitation email from [facility].3.Open the email and access the invitation link: Accept Invitation to [facility].Fill in the required french to create your account. Sign into [email or web address] with your username and password that you [...] you will allow to register on the [facility] Patient Portal for access to your information. You can also access the [employer] Patient Portal on the JEDI MIND lisette. Simply click on Health Records under reQwipta and then click on the Zaheer logo. [...] Call your local pharmacy or go to http://bit.ly/7S3Hp3r to find one close to you.3.Make use of household items: Use cat litter or old coffee grounds to dispose medications if other options arenot available. Mix your drugs with these household products, seal them in an airtight container andthrow it into the garbage. Call [facility]: [phone] to be sure your drugs can be [...] that I should contact my d octor. Patient/Slinger Sequins Signature: Date/Time: Relationship to Patient: Witness Name/Signature: Date/Time: [id number] Discharge summary Discharge Diagnosis: (_x) IUP (_) [...] given Rubella: (_x) Rubella immune (_) Rubella rwh-qrckdh-Mpnzoet given (_) Rubella xue-waahiu-Atwawdl declined Feeding Rhodes: (_) Breast feeding (_x) [...] SANTO BOWER DO on 03/07/2022 07:36 AM [id number] Note A. Received in formalin, labeled with [...] less than 15% ofthe overall disc volume. Slinger Sequ[employer] sections in 3 cassettes. Dictated by [facility] 08-08-2022 Nurse Progress note pt not in room at 10 for post parandial blood sugar check I advised pt not to go outside until we remove iv but she is not compliant Digitally Signed by Mar Conway RN on 2022 10:05 AM [id number] Note A. Received in formalin, labeled with [...] less than 15% ofthe overall disc volume. Slinger Sequ[employer] sections in 3 cassettes. Dictated by [facility] 08-08-2022 Note A. Received in formalin, labeled [...] less than 15% ofthe overall disc volume. Slinger Sequ[employer] sections in 3 cassettes. Dictated by [facility] 08-08-2022 Note A. Received in formalin, labeled [...] less than 15% ofthe overall disc volume. Slinger Sequins sections in 3 cassettes. Dictated by [facility] 08-07-2022 Evaluation + Plan noteExtracted from: Title:Clinical Document Author:GISELLE BROWNE MD Date:03/05/22 [facility] ADMISSION HISTORY AND PHYSICAL Chief complaint: [...] BS monitoring. PCN . Monitor per protocol. [facility] 08-07-2022 History and physical note [facility] OB ADMISSION HISTORY AND PHYSICAL Chief complaint: [...] GISELLE BROWNE MD on 03/05/2022 10:20 AM [id number] Anesthesiology Consult note Patient: BETSY MESA Age: 26 years Sex: Female : 1995 Associated Diagnoses: None Author: HAKAN STEWARD APRN-HUMAN RESOURCES BENEFITS MANAGER Preoperative Information Procedure/ Case: labor epidural Anesthesiologist [...] ADD (attention deficit disorder) / SNOMED CT [id number] / Confirmed Gestational diabetes mellitus, class A>1< / SNOMED CT 247696797 / Confirmed Induction of labor / SNOMED CT 995318496 / Confirmed / SNOMED CT 245696720 / Confirmed / SNOMED CT 114211068 / Confirmed, Active Problems (8) ADD (attention deficit disorder) Gestational diabetes Gestational diabetes Gestational diabetes mellitus, class A>1< Induction of labor Tobacco use Histories Past Medical History: Active ADD (attention deficit disorder) ([id number]) Resolved (151881828): Onset on 10/23/2018 at 23 years. Resolved on 08/04/2019 at 24 years. Comments: 02/27/2017 EDT 15:51 EDT - SYSTEM System added from documentation. Status documented as Yes on Admission (267807160): Onset on 10/16/2016 at 21 years. Resolved in 2017 at 22 years. (846224211): Onset on 10/20/2013 at 18 years. Resolved in 2014 at 19 years. (211964556): Onset on 08/16/2013 at 18 years. Resolved on 05/29/2014 at 19 years. Family History: Diabetes mellitus type 1 Sister Diabetes mellitus type 2 Mother Seizure Sister Procedure history: None (337728318). Social History Social & Psychosocial Habits Alcohol [...] Oral36.7 DegC (MAR 05 10:13) Heart Rate Bvjofxspz81 bpm (MAR 05 10:30) Resp Rate 18 br/min (MAR 05 10:13) BMI34.51 (MAR 05 10:05) Measurements from flowsheet : Measurements 03/05/2022 10:05 EDT Height 177.8 cm Admission Weight 109.1 kg [place] Body Weight 68.50 kg BSA Admission 2.26 [...] EDT Designated Person #1 We May Share [facility] Cara Designated Person #1 Relationship Mother Privacy Restrictions Requested None Height 177.8 cm Admission Weight 109.1 kg [place] Body Weight 68.50 kg BSA Admission 2.26 [...] Surrogate No Tubal Sterilization Planned No Discharge [place] Physician darien Written Plan No WIC Participant [...] Teaching Evaluation Needs practice/supervision Preferred Written Language Salvadorean Preferred Spoken Language Salvadorean Chief Complaint labor Mode of Arrival Wheelchair Accompanied by Significant other, Sibling Information Given by Patient Patient's Current Physicians [facility] Emergency Contact Number Emergency Contact Number Belongings [...] Documentation reviewed: Current records. Assessment and Plan [employer] Society of Anesthesiologists (ASA) physical status classification: [...] by HAKAN STEWARD on 03/05/2022 10:51 AM [id number] History and physical note [facility] ADMISSION HISTORY AND PHYSICAL Chief complaint: [...] GISELLE BROWNE MD on 03/05/2022 10:20 AM [facility]Aqozibrl32-14-1061 History and physical note [facility] ADMISSION HISTORY AND PHYSICAL Chief complaint: [...] GISELLE BROWNE MD on 03/05/2022 10:20 AM [id number] Hospital Discharge instructions Patient Education 01/18/2022 06:55:38 7 - Labor and Delivery Outpatient Instructions(CUSTOM) [facility] LABOR AND DELIVERY OUTPATIENT HOME-GOING INSTRUCTIONS _X_ [...] crackers, bananas, Jell-O, cooked carrots, applesauce. ___ Bryan diet. Avoid caffeine, chocolate, alcohol, spiced/greasy foods. [...] the nearest Emergency Room for assistance. Form 687841 D: 07/07 Document Released: 07/16/2006 Document Revised: 07/04/2012 Document Reviewed: 07/16/2006 ExitCare Patient Information 2012 [employer]. Follow Up Care 01/17/2022 14:26:45 With:GATITO ODOM DO Address: [address] [place] [phone] When: Unknown Comments:Follow-up as scheduled [facility] 01-09-2022 Hospital Discharge instructions Patient Education 08/07/2021 [...] for support. Classes and counselors. Quit-smoking classes high school coach people like you through the process. [...] your health. For more information National Cancer [place] Smoking Quitline, smokefree.gov/rzgsv-rt-sg-expert, 766-89K-NNLS (861-037-6037) 3162-5532 The [employer]. [address] [place] [address]. All rights reserved. This information is not [...] cloves at drugstores. Some pharmacies carry an efcu-ccr-tlchwyb toothache kit. This contains a paste that you can put on the exposed tooth to make it less sensitive. Put a cold pack on your jaw over the sore area to help reduce pain. You may use bmxv-azn-uqvwmmi medicine to ease pain, unless another medicine [...] Pus drains from the tooth or gum [phone] The [employer]. [address] [place] [address], [place] [address]. All rights reserved. This information is not intended as a substitute for professional medical care. Always follow yourhealthcare professional's instructions. Follow Up Care 08/07/2021 16:21:41 With:Dental Referral List Address:Unknown When:2-4 days [facility] 10-20-2021 Hospital Discharge instructions Patient Education [...] the smoke from others. You may use irng-hjs-unzllvy acetaminophen or ibuprofen for fever, muscle aching, [...] body and be dangerous to your health. Vkjs-dcc-qvajjdp remedies won't shorten the length of the [...] or as directed by your healthcare provider [phone] The [employer]. [address] [place] [address], [place] [address]. All rights reserved. This information is not intended as a substitute for professional medical care. Always follow yourhealthcare professional's instructions. Follow Up Care 05/18/2021 12:09:33 With:Call Physician Referral Address:Unknown When:2-4 days [facility] 08-17-2021 Hospital Discharge instructions* Instructions* Carlitos English, ENERGY PROFESSIONAL - PROTECTION CHIEF [employer] - 03/15/2021 In the medical field, there [...] be sent through Care Everywhere. * Cough (Salvadorean) documented in this [facility] Work Phone: 1(686) 610-884108-09-2021 Taisha independently performed a history and physical on Veritext. All diagnostic, treatment, and disposition decisions were [...] 0024 regular rhythm tachycardic rate 142 bpm. ND interval prolonged 220 milliseconds. QRS complex narrow. QTC normal. No ST segment elevations or depressions. No abnormal T-wave inversions. Good R-wave progression through precordial leads. Interpretation of this EKG myself in the absence of a state pilot is first-degree AV block, sinus tachycardia. Interpretation [...] provider for clarification. Isreal Kincaid MD 03/07/[address] [place], [place] [address]Discharge summary Author Nelson Ulloa [facility] Note Date/Time May 10, 2025 3 :55am [facility] Medical Records Department [address] [place] [address] Emergency Department Summary 05/10/25 MR#: [id number] Acct: [id number] Name: BETSY MESA Rep #:[id number] : 1995 30 From: Nelson Ulloa DO [...] she also has an appointment with her TIEDOWN OPERATOR in roughly 24 hours but because of the return bleeding she was concerned and presents for evaluation [facility] Medical History Migraine Anxiety Paresthesias [...] the need for repeat ultrasound or emergent TIEDOWN OPERATOR consultation and she is otherwise safe for [...] % (Auto) 54.4 Lymph % (Auto) 37.3 Dickey % (Auto) 5.7 Eos % (Auto) 2.0 Baso % (Auto) 0.3 Absolute Neuts (auto) 4.0 Absolute Lymphs (auto) 2.75 Nucleated RBC % 0 HCG, Quant 35158 H Discharge Plan Triage Chief Complaint: Vag Bld, Preg ED Provider: Nelson Ulloa Dx/Rx/DC Orders Clinical Impression: Vaginal bleeding in , Anxiety, Abnormal collection of fluid in uterinecavity Instructions: Bleeding During Early Prescriptions: No Action cephalexin 500 mg capsule 500 mg PO TID 5 Days Qty: 15 0RF PNV 942-vxgr-aymtsc-dha 90 mg iron- 1 mg-200 mg capsule 1 cap PO DAILY Qty: 30 0RF Stand Alone Forms: ED Work / School Excuse Primary Care Provider: ARLINE CORADO Referrals: ARLINE CORADO [Other] Activity Restrictions/Additional Instructions: Please keep your appointment for tomorrow/Sunday, May 11 with your TIEDOWN OPERATOR. Your blood volume has remained stable and your marker increased from 12,000-22,000-36,000 indicating a normal progression in . Return to the ER should you have any further concerns Print Language: Salvadorean Disposition Disposition: Home, Self Care Discharge Date/Time: 05/10/25 03:55 What to do if you have Problems For any increased pain, shortness of breath, bleeding, nausea or vomiting, chest pain, or any unexpected problems, contact your Primary Care Provider. Call [facility] ([phone]) or report to the closest Emergency Room. Call 911 if necessary. 05/10/25 0510 <Electronically signed by Nelson Ulloa DO> Cosigner Signature (if applicable): CC: ARLINE CORADO ~ Signed [facility] Work Phone: Evaluation + Plan note No data available for this section [facility] Evaluation + Plan note Future Appointments Appointment Date:05/26/2024 01:30:00 PM Scheduled Provider:ARLINE CORADO Location:[facility] Appointment Type:PC OV Follow Up [facility] Evaluation + Plan note Future Appointments Appointment Date:11/21/2024 03:30:00 PM Scheduled Provider:ARLINE CORADO Location:[facility] Appointment Type:PC OV Follow Up Future Scheduled Tests Laboratory* Thyroid Stimulating Hormone 04/25/24 * Free T4 04/25/24 * Free T3 04/25/24 Radiology* US Breast Left Complete 09/15/24 [facility] Evaluation note* Diagnosis 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, unspecified Acute cystitis with hematuria Acute cystitis documented in this [facility]: Evaluation note* Diagnosis Cough- Primary Vaginal discharge Leukorrhea, not specified as infective documented in this encounter [employer] Phone: Evaluation note* Diagnosis Hypertension, unspecified type- Primary documented in this encounter [facility] Work Phone: evaluation note* Diagnosis Numbness- Primary Disturbance of skin sensation documented in this encounter [facility] Diagnosis with uncertain viability, single or unspecified fetus- Primary with uncertain dates in first trimester documented in this encounter [facility]* Diagnosis Positive test- Primary examination or test, positive result Threatened miscarriage Threatened , unspecified as to episode of care with uncertain dates in first trimester Spotting affecting in first trimester documented in this encounter [facility]* Diagnosis with uncertain dates in first trimester documented in this encounter [facility]* Diagnosis Incomplete - Primary Unspecified , without mention of complication, incomplete Threatened miscarriage Threatened , unspecified as to episode of care documented in this encounter [facility] noteNo assessment information availableWNationwide [facility] Work Phone: Hospital Discharge instructions* Instructions* Isreal Kincaid MD - 03/07/[address] [facility] Long-term residential drug and alcohol rehabilitation services [address] [facility] [phone] [facility] crisis Center 24 hour detox and drop in. Central assessment 8 AM4 PM for adults. [address] [phone] [facility] App[facility] only for outpatient treatment services M, W, Th 9AM-9PM, T F 9AM-530PM [address] [facility] [phone] Al-Anon and Alateen M-F 10AM-2PM [phone] or [phone] Alcoholics Anonymous [address] [facility] M-F 9AM-5 PM, Sa 9AM-1 PM [phone] [facility] Outpatient/Inpatient/Detox for adults [address] [facility] [phone] Adolescents Treatment/Detox [facility] [phone] [facility] Alcohol and drug counseling and groups. [address] [place] [address] [facility] Drug, alcohol, gambling, and mental health treatment. M-F 8AM-4:30PM [address] [phone], ext [phone] Narcotics Anonymous 24 hour Hotline 5-531-ABH-HOPE or [facility] Sober living housing, counseling, vocational education, job referral, recovery coaching [address] [facility] [phone] [facility] Alcohol and Drug Counseling Call for treatment appointment and prevention [address] [facility]. [phone] * Attachments The following attachments cannot be sent through Care Everywhere. * UTI (Urinary Tract Infection): Female (Salvadorean) * Substance Use Disorder (Salvadorean) documented in this [facility] Work Phone: Hospital Discharge instructions No data available for this section [facility] Hospital Discharge instructionsNo known hospital discharge instructions.[facility] Hospital Discharge instructions* Additional Discharge Instructions Contac t [facility] Office for appointment to be seen. Instruction/Education Provided DI for Va ginal Bleeding [facility] Hospital Discharge instructions Additional Instructions Your labs and CAT scan were all good. Follow-up with your primary care physician.[facility] Work Phone: Hospital Discharge instructionsAdditional Instructions Your scan did not show any sign of skull fracture or brain bleed indicating the pain is from soft tissue contusion. You can ice the area to help reduce pain and swelling and also continue the prescribed ibuprofen. Return to the ER should you have any further concerns [facility] Work Phone: Hospital Discharge instructionsAdditional Instructions Follow-up with your TIEDOWN OPERATOR at [facility]. Follow-up with your primary care physician. Return back to ED if symptoms change or worsen. You had bacteria in her urine and therefore we will treat with antibiotics to prevent urinary tract infection.[facility] Work Phone: Hospital Discharge instructionsAdditional Instructions vitamins as directed. Follow-up with your TIEDOWN OPERATOR as scheduled. You will most likely need another ultrasound performed as on your last 2 ultrasound there was an abnormal fluid collection noted adjacent to the gestational sac. Return to the emergency department with increased vaginal bleeding or cramping, new or worsening symptoms.[facility] Work Phone: Hospital Discharge instructionsAdditional Instructions Please keep your appointment for tomorrow/Sunday, May 11 with your TIEDOWN OPERATOR. Your blood volume has remained stable and your marker increased from 12,000-22,000-36,000 indicating a normal progression in . Return to the ER should you have any further concernsWNationwide [facility] Work Phone: Progress note No data available for this section [facility] Reason for referral (narrative)* Diagnostic Procedure Only (Routine) - Authorized Specialty Diagnoses / Procedures Referred By Contac t Referred To Contact [facility] Diagnoses with uncertain dates in first trimester Procedures PELVIC US WHI US PELVIC NONOBSTETRIC REAL-TIME IMAGE COMPLETE Sushil Villanueva APRN.CNP [address] [place] [address] [facility] [place] [place] [address] Referral ID Status Reason Start Date Expiration Date Visits Requested Visits Authorized [id number] Authorized Auto-Generat ed Referral 04/28/2024 04/28/2025 1 1 [facility]No reason for referral information availableUniversity [facility]als [facility] Work Phone: Reason for visit Narrative* Diagnostic Procedure Only (Routine) - Closed Specialty Diagnoses / Procedures Referred By Contac t Referred To Contact [facility] Diagnoses with uncertain dates in first trimester Procedures PELVIC US I US PELVIC NONOBSTETRIC REAL-TIME IMAGE COMPLETE Sushil Villanueva APRN.CNP [address] [place] [address] [facility] [address] [place] [address] Referral ID Status Reason Start Date Expiration Date V isits Requested Visits Authorized [id number] Closed Auto-Generate d Referral 04/28/2024 04/28/2025 1 1 [facility] Summary Purpose Family History No Family History Records Found Relationship Condition Age at Onset Recorded Date/T chapincito Not Specified Diabetes mellitus Unknown Seizure Unknown Malignant neoplasm Unknown Advance Directives No Advanced Directives Records FoundDocuments on File Type Date Recorded Patient Slinger Sequins Expl anation Advance Directive(s) 01/29/2019 3:31 PM Date Activated Date Inactivated Comments 12/09/2023 11:45 PM 12/11/2023 4:14 PM Question Answer Comments Full Code Order Discussed With: Patient Date Activated Date Inactivated Comments 12/09/2023 11:45 PM 12/11/2023 4:14 PM Question Answer Comments Full Code Order Discussed With: Patient Advance Directive Response Recorded Date/ Time Do you have a Healthcare Power of Reading Interventionist? No January 11, 2025 10:21pm Advance Directive Response Recorded Date/ Time Do you have a Healthcare Power of Reading Interventionist? No January 11, 2025 10:21pm Do you have a Healthcare Power of Reading Interventionist? No February 05, 2025 1:16am Advance Directive Response Recorded Date/ Time Do you have a Healthcare Power of Reading Interventionist? No January 11, 2025 10:21pm Do you have a Healthcare Power of Reading Interventionist? No February 05, 2025 1:16am Do you have a Healthcare Power of Reading Interventionist? No March 22, 2025 11:27pm Advance Directive Response Recorded Date/ Time Do you have a Healthcare Power of Reading Interventionist? No January 11, 2025 10:21pm Do you have a Healthcare Power of Reading Interventionist? No February 05, 2025 1:16am Do you have a Healthcare Power of Reading Interventionist? No March 22, 2025 11:27pm Do you have a Healthcare Power of Reading Interventionist? No May 03, 2025 7:53pm Advance Directive Response Recorded Date/ Time Do you have a Healthcare Power of Reading Interventionist? No January 11, 2025 10:21pm Do you have a Healthcare Power of Reading Interventionist? No February 05, 2025 1:16am Do you have a Healthcare Power of Reading Interventionist? No March 22, 2025 11:27pm Do you have a Healthcare Power of Reading Interventionist? No May 03, 2025 7:53pm Do you have a Healthcare Power of Reading Interventionist? No May 06, 2025 6:31pm Advance Directive Response Recorded Date/ Time Do you have a Healthcare Power of Reading Interventionist? No February 05, 2025 1:16am Do you have a Healthcare Power of Reading Interventionist? No March 22, 2025 11:27pm Do you have a Healthcare Power of Reading Interventionist? No May 03, 2025 7:53pm Do you have a Healthcare Power of Reading Interventionist? No May 06, 2025 6:31pm Do you have a Healthcare Power of Reading Interventionist? No May 10, 2025 2:02am Chief Complaint [...] DATE CREATED AUTHOR AUTHOR'S ORGANIZ ATION [facility]05/2019 [facility] DATE CREATED AUTHOR AUTHOR'S ORGANIZ ATION 04/09/2021 [facility] DATE CREATED AUTHOR AUTHOR'S ORGANIZ ATION 12/07/2021 [facility] DATE CREATED AUTHOR AUTHOR'S ORGANIZ ATION 01/04/2022 [facility] [place] DATE CREATED AUTHOR AUTHOR'S ORGANIZ ATION 10/10/2022 [facility] DATE CREATED AUTHOR AUTHOR'S ORGANIZ ATION 10/18/2023 [facility] DATE CREATED AUTHOR AUTHOR'S ORGANIZ ATION 12/12/2023 [facility] DATE CREATED AUTHOR AUTHOR'S ORGANIZ ATION 03/22/2024 [facility] ([place] DATE CREATED AUTHOR AUTHOR'S ORGANIZ ATION 05/11/2024 [facility] DATE CREATED AUTHOR AUTHOR'S ORGANIZ ATION 06/01/2024 ADAIR MASSILLO N DATE CREATED AUTHOR AUTHOR'S ORGANIZ ATION 03/11/2025 [facility] DATE CREATED AUTHOR AUTHOR'S ORGANIZ ATION 03/17/2025 [facility] DATE CREATED AUTHOR AUTHOR'S ORGANIZ ATION 03/30/2025 [facility] DATE CREATED AUTHOR AUTHOR'S ORGANIZ ATION 05/20/2025 [facility] DATE CREATED AUTHOR AUTHOR'S ORGANIZ ATION 06/11/2025 [facility] Reason for Visit (unrecogniz ed section and [...] - Provid er: Erica Avila - Comment: [id number] XP 04/23) Source Comments (unrecognize d section and content) In the event this informatio n is protected by the Federal Confidentiality of Alcohol and Drug Abuse Patient Records regulations: The Federal rules restrict any use of the information to criminally investigate or prosecute any alcohol or drug abuse patient.[facility] Hospital[facility] the event this information is protected by the Federal Confidentiality of Alcohol and Drug Abuse Patient Records regulations: The Federal rules restrict any use of the information to criminally investigate or prosecute any alcohol or drug abuse patient.[facility] HospitalIn the event this information is protected by the Federal Confidentiality of Alcohol and Drug Abuse Patient Records regulations: The Federal rules restrict any use of the information to criminally investigate or prosecute any alcohol or drug abuse patient.[facility] HospitalIn the event this information is protected by the Federal Confidentiality of Alcohol and Drug Abuse Patient Records regulations: The Federal rules restrict any use of the information to criminally investigate or prosecute any alcohol or drug abuse patient.[facility] HospitalIn the event this information is protected by the Federal Confidentiality of Alcohol and Drug Abuse Patient Records regulations: The Federal rules restrict any use of the information to criminally investigate or prosecute any alcohol or drug abuse patient.[facility] HospitalIn the event this information is protected by the Federal Confidentiality of Alcohol and Drug Abuse Patient Records regulations: The Federal rules restrict any use of the information to criminally investigate or prosecute any alcohol or drug abuse patient.[facility] HospitalIn the event this information is protected by the Federal Confidentiality of Alcohol and Drug Abuse Patient Records regulations: The Federal rules restrict any use of the information to criminally investigate or prosecute any alcohol or drug abuse patient.[facility] Care Team (unrecognized sect ion and content) Care Team Personnel Name: PHYSICIAN, NONE Position: AH Physician Member Role: Primary Care Physician Name: Jocelyn Ojeda RN Position: OB RN Member Role: RN Name: Chris Vidal RN Position: OB RN Member Role: RN Care Team Related Persons Name: DIANA COLON Address: [address] [place] [place] [address] [place] Name: DIANA COLON Address: [address] [place] [address] Name: JANINE MESA-GENARO Address: [address] [place] [address] [place] Name: CARA BARCENAS Name: CARA BARCENAS Name: CARA BARCENAS Name: CARA BARCENAS Name: AMELIA LANDEROS Address: [address] Care Teams (unrecognized sec tion and [...] January 11, 2025 End: January 12, 2025 Night Assistant Relationship Specialty Start Date End Date Estrella León APRN PCP - General Adult Health 02/05/24 08/29/24 Care Team Personnel Name: ARLINE CORADO YANNICK-PROTECTION CHIEF [employer] Position: P4 Advanced Fitness Specialist Member Role: Primary Care Physician Address: Address: [address] [place] [address]- Care Team Related Persons Name: CARA BARCENAS Night Assistant Relationship Specialty Start Date End Date Estrella [...] BE BASED ON THE PRIMARY CLINICAL RECORDS. [employer] provides no warranty or guarantee of the accuracy or completeness of information in this document.
--- NOTE | 2025-06-17 22:56 | EDS_ITS ---
HPI History of Present Illness Chief Complaint: Upper Extremity Injury Informant: patient Narrative Narrative: Patient is a 30-year-old female with past medical history of anxiety. She was seen yesterday after sustaining a laceration to her left little finger. At that time the laceration was closed with sutures. She states that since returning home she has noticed that the area where the sutures were placed was now itchy. She also reports that she felt like she was not able to bend the finger all the way. She then states she got online and found that she could have lacerated the tendon and therefore comes back in for evaluation. Patient denies any repeat trauma since leaving the ER [facility] Medical History Migraine Anxiety Paresthesias Cervical radiculopathy Cervicalgia Home Medications ?Medication ?Instructions ?Recorded ?Last Taken ?Type vitamins no.102-iron 90 1 cap PO DAILY #30 ca ps 05/06/25 Unknown Rx mg-folate 1 mg-dha 200 mg capsule Allergy/AdvReac Type Severity Reaction Status Date / Time acetaminophen (From Vicodin) Allergy Hives Verified 06/17/25 22:42 hydrocodone (From Vicodin) Allergy Hives Verified 06/17/25 22:42 Family History Other Cancer Diabetes Seizures Social History Smoking Status: Current every day smoker tobacco type: cigarettes Tobacco: How many years used: 6 second hand exposure: Yes alcohol intake: current alcohol intake frequency: holidays/special occasions only substance use type: former substance user Date of last use: used some marijuana in the past ROS ROS ED Constitutional Constitutional ED: Denies chills or fever(s) Cardiovascular Cardiovascular: Denies chest pain Respiratory/Chest Respiratory/Chest: Denies cough or dyspnea Gastrointestinal Gastrointestinal: Denies abdominal pain, diarrhea, nausea or vomiting Musculoskeletal Musculoskeletal: Reports other Details: Positive left finger pain Integumentary Reports other Details: Positive laceration left little finger Neurologic Neurologic: Denies headache(s) Hematologic/Lymphatic Hematologic/Lymphatic: Denies easy bleeding or easy bruising EXAM Physical Exam Const Vital Signs: 06/17/25 22:41 Temperature 98 F Temperature Source Oral Pulse Rate 100 Respiratory Rate 18 Blood Pressure 138/96 H Blood Pressure Mean 110 Pulse Ox 99 Oxygen Delivery Method Room Air Positive well nourished and well developed General Appearance ED: well developed HEENT HEENT Narrative: Normocephalic atraumatic Eyes PERRL and EOMs intact bilaterally Neck full ROM and supple Resp normal respiratory effort and clear to auscultation bilaterally Cardio regular rate and regular rhythm Extremity Extremity Narrative: Left upper extremity is neurovascularly intact. The laceration to the lateral aspect of the left fifth finger is clean dry and intact. Sutures are in place without surrounding secondary changes to suggest infection. There is faint/mild edema noted along the laceration site mainly over top of the middle phalanx. Patient is able to fully extend and also able to flex the finger although this has limited range of motion with flexion occurring to approximately 90 degrees. Her ability to extend and flex and the fact the laceration is on the lateral aspect of the finger not over top of the dorsal or volar aspect goes against tendon laceration Compartments are soft and compressible going against compartment syndrome Remainder of the exam is normal Neuro oriented x3, CN's II-XII intact bilaterally, moves all extremities and no focal motor deficits Sensorium / Orientation: alert Motor Exam: strength 5/5 throughout Psych mental status grossly normal Skin Skin Narrative: Laceration to the left little finger that is clean dry and intact as documented above MDM MDM MDM Narrative Medical decision making narrative: Patient arrived to the ER mildly hypertensive but otherwise with stable vitals. She was seen earlier in the day and had her laceration repaired. She had concer n for tendon injury. By physical exam she was told that she does not show any signs of this as she can fully extend and she can still flex the finger. Also location of the laceration does not suggest any type of tendon injury. There are also no signs of secondary infection. Therefore at this time the laceration which was previously closed is clean dry and intact without infectious changes. By physical exam she does not have extensor tendon or flexor tendon lacerations and therefore there is no need for further intervention or workup and she is otherwise safe for discharge Discharge Plan Triage Chief Complaint: Upper Extremity Injury ED Provider: Nelson Ulloa Dx/Rx/DC Orders Clinical Impression: Laceration of left little finger, Feared condition not demonstrated, Anxiety Instructions: ED Laceration, All Closures Prescriptions: No Action PNV [id number] 90 mg iron- 1 mg-200 mg capsule 1 cap PO DAILY Qty: 30 0RF Primary Care Provider: Care Physician,No Primary Referrals: Care Physician,No Primary [Primary Care Provider, Medical] Print Language: Belarusian Disposition Disposition: Home, Self Care Discharge Date/Time: 06/17/25 22:58
[2025-06-17 22:57] VITALS: BP 138/96; PULSE 100; RESP 18; TEMP 36.6; O2SAT 99
== END 2025-06-17 22:58 | disposition home or self-care (01) ==
PROVIDERS: Emergency Provider Emergency Medicine; Visit Provider Emergency Medicine
DX: S61.217A Laceration without foreign body of left little finger without damage to nail, initial encounter (principal); W25.XXXA Contact with sharp glass, initial encounter; Y93.G1 Activity, food preparation and clean up; F41.9 Anxiety disorder, unspecified; F17.210 Nicotine dependence, cigarettes, uncomplicated
CPT/HCPCS: 12001; 99283

== ENCOUNTER 2025-06-27 06:06 | Emergency (ER) | payer OTHER, MEDICAID, SELFPAY ==
[2025-06-27 06:07] VITALS: BP 130/94; PULSE 95; RESP 18; TEMP 36.1; O2SAT 98; BMI 33.0
--- OUTSIDE RECORDS SUMMARY | 2025-06-27 06:31 | XMS RPT_ITS | CCD ---
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 Role Phone Unavailable Primary Care Provider [...] Primary Care Provider Vern Henry Emergency Provider [phone] Ruben Jacob Primary Care Provider Juan Tidwell Emergency Provider Call, On Primary Care Unavailable Jeremy Lim Attending Unavailable Call, On Primary Care Unavailable Vern Henry Attending Unavailable Call, On Primary Care Unavailable Leandra Keller Attending Unavailable Call, On Primary Care Unavailable Juan Tidwell Attending Unavailable Pcp SOFTWARE WRITER, No Primary Care Provider Unavailtaylor CORADO APRN-SAS ETL DEVELOPER, ARLINE Suarez Primary Care Physicia n HIRA LANGLEY MD Attending Unavailable MICKIE LANIER-ARLINE GORDON Primary Care Unava ilable SURYA SOFTWARE WRITER-SAS ETL DEVELOPER, ABDI Attending Unavaila ble JASBIR DO, MARCELO Waters Primary Care Unavailab martha MAGALLANES MD, DR JOSÉ MIGUEL Waters Attending Unavailable JASBIR DOMARCELO Primary Care Unavailab le TARSHA PA-C, ERLINDA Fuller Attending Unavailabl e JASBIR DOMARCELO Primary Care Unavailab le JASBIR DO, MARCELO Waters Primary Care Unavailab le GALINDO SOFTWARE WRITER-SAS ETL DEVELOPER, LIZETTE Attending Unavailtaylor LANGLEY MD, HIRA Carrington Attending Unavailable MICKIE SOFTWARE WRITER-SAS ETL DEVELOPER, ARLINE M Primary Care Unava ilable MICKIE SOFTWARE WRITER-SAS ETL DEVELOPER, ARLINE Suarez Attending Unava ilable MICKIE SOFTWARE WRITER-SAS ETL DEVELOPER, ARLINE M Primary Care Unava ilable SURYA SOFTWARE WRITER-SAS ETL DEVELOPER, ABDI Attending Unavaila ble JASBIR DO, MARCELO Waters Primary Care Unavailab martha WILLINGHAM PA-C, ERLINDA Fuller Attending Unavailabl e JASBIR DO, MARCELO Waters Primary Care Unavailab martha MAGALLANES MD, DR JOSÉ MIGUEL Waters Attending Unavailable JASBIR DOMARCELO Primary Care Unavailab martha MAGALLANES MD, DR JOSÉ MIGUEL Waters Attending Unavailable JASBIR DOMARCELO Primary Care Unavailab le SURYA SOFTWARE WRITER-SAS ETL DEVELOPER, ABDI Attending Unavaila ble JASBIR DOMARCELO Primary Care Unavailab martha MAGALLANES MD, DR JOSÉ MIGUEL Waters Attending Unavailable JASBIR DOMARCELO Primary Care Unavailab martha WILLINGHAM PA-C, ERLINDA Fuller Attending Unavailabl e JABSIR DO, MARCELO Waters Primary Care Unavailab le Pcp SOFTWARE WRITER, No Primary Care Provider Unavailabl e HAURY, SUSHIL Referring Unavailable HAURY, SUSHIL Referring Unavailable HAURY, SUSHIL Attending Unavailable SELF Referring Unavailable HAURY, SUSHIL Referring Unavailable LEELA CURRIE Attending Unavailable HAURY, SUSHIL Referring Unavailable JOSE ARANDA Attending Unavailable HAURY, SUSHIL Referring Unavailable MICKIE SOFTWARE WRITER-SAS ETL DEVELOPER, ARLINE M Primary Care Unava ilable CLEMENCIA ALONZO, DELL Attending Unavailable Care Physician, No Primary Primary Care Provider Unavailable Stefan ALONZO, Dr. Farooq Emergency Provider Dr. Oseas Aviles MD Attending Provider [phone] Dr. Nelson Ulloa DO Emergency Provider ARLINE CORADO Primary Care Provider ARLINE CORADO Primary Care Unavailabl e MICKIE SOFTWARE WRITER-SAS ETL DEVELOPER, ARLINE M Primary Care Unava ilable MICHEAL LANIER, ROMINA, JOSE Waters Attending Unavailable Laila JOHN, Dr. Damon Attending Provider MICKIE SOFTWARE WRITER-SAS ETL DEVELOPER, ARLINE M Attending Unava ilable MICKIE SOFTWARE WRITER-SAS ETL DEVELOPER, ARLINE M Primary Care Unava ilable PAMELA MEZA MD Attending Unavailable MICKIE SOFTWARE WRITER-SAS ETL DEVELOPER, ARLINE Suarez Primary Care Unava ilable Care Physician, No Primary Primary Care Physicia n Mell Aviles MD, Dr. Farooq Attending Physician Stefan ALONZO, Dr. Farooq Emergency Department Physici an Laila JOHN, Dr. Damon Attending Physician Laila JOHN, Dr. Damon Emergency Department Physic shobha ARLNIE CORADO Primary Care Physician [phone] Manoj JOHN, Dr. Munroe Emergency Departmen t [...] DESTIN Primary Care Unavailable Manoj JOHN, Dr. Mnuroe Attending Physician René Mohan MD Attending Physician MARLENA LOWERY DO Attending Unavailable MICKIE SOFTWARE WRITER-SAS ETL DEVELOPER, ARLINE M Primary Care Unava ilable MICKIE SOFTWARE WRITER-SAS ETL DEVELOPER, ARLINE M Primary Care Unava ilable SAIGE ALONZO, CASEY King Attending Unavailable MICKIE SOFTWARE WRITER-[facility], ARLINE Suarez Attending Unava ilable MICKIE SOFTWARE WRITER-SAS ETL DEVELOPER, ARLINE M Primary Care Unava ilable MICKIE SOFTWARE WRITER-SAS ETL DEVELOPER, ARLINE M Primary Care Unava ilable SAIGE ALONZO, CASEY King Consulting Mell MOULTON MD, CASEY King Attending Unavailable MICKIE SOFTWARE WRITER-SAS ETL DEVELOPER, ARLINE Suarez Attending Unava ilable MICKIE SOFTWARE WRITER-SAS ETL DEVELOPER, ARLNIE M Primary Care Unava ilable MICKIE SOFTWARE WRITER-SAS ETL DEVELOPER, ARLINE M Attending Unava ilable MICKIE SOFTWARE WRITER-SAS ETL DEVELOPER, ARLINE M Primary Care Unava ilable LUCRETIA ALONZO, DR MARIANNA Wood Attending Unavailabl e MICKIE SOFTWARE WRITER-SAS ETL DEVELOPER, ARLINE M Primary Care Unava ilable Allergies Allergy Classification Reported Allergen(s) Allergy Type Date of Onset Reaction(s) Facility (16 sources) Acetaminophen / HYDROcodone; Translations: [acetaminophen-hy drocodone] [facility] ([facility] sources) Acetaminophen; Translations: [ACETAMINOPHEN] Drug Allergy 1 [facility] (19 sources) HYDROcodone; Translations: [HYDROCODONE] Drug Allergy 1 [facility] (4 sources) Acetaminophen / HYDROcodone; Translations: [HYDROCODONE-ACET AMINOPHEN] Drug Allergy 2 [facility] (1 source) Acetaminophen Drug Allergy 4 [facility] (1 source) HYDROcodone Drug Allergy 4 [facility] (1 source) Acetaminophen Drug Allergy 5 [facility] (1 source) HYDROcodone Drug Allergy 5 [facility] Repository Medications Current Medications Medication Drug [...] Repeat number: 1 Start: 05-18-2024 End: 06-16-2024 Fhrvfbhagd-Lyogzqhublfpi-Gvk f (Fioricet) 50-300-40 mg capsule Discontinued 1 [...] day(s), # 12 tab(s), 0 Refill(s), Pharmacy: [facility] #[id number], Post-op pain, 177.8, cm, 05/14/25 11:40:00 [...] glucometer, # 1 EA, 0 Refill(s), Pharmacy: [facility] #[id number], Type 2 diabetes mellitus, 177.8, cm, 02/19/24 15:03:00 EDT, Height, 93, kg, 02/05/24 15:51:00 EDT, Dosing Weight Start Date: 03/05/24 Status: Ordered Medication Dispense Status: Completed Quantity: 1.0 Unit: EA Total Allowed Fills: 1 Fills Dispensed: 0 Indications: Type 2 diabetes mellitus without complications; Start: 03-05-2024 Blood Glucose Test Machine See Instructions, 1 glucometer, # 1 EA, 0 Refill(s), Pharmacy: [facility] #[id number], Type 2 diabetes mellitus, 177.8, cm, 02/19/24 15:03:00 EDT, Height, 93, kg, 02/05/24 15:51:00 EDT, Dosing Weight Start Date: 03/05/24 Status: Ordered Quantity: 1.0 Unit: EA Repeat number: 1 Indications: Type 2 diabetes mellitus without complications; Start: 03-05-2024 Blood Glucose Test Machine See Instructions, 1 glucometer, # 1 EA, 0 Refill(s), Pharmacy: [facility] #[id number], Type 2 diabetes mellitus, 177.8, cm, 02/19/24 [...] Refill(s), 03/14/22 5:57:00 EDT, [facility]acy: [facility] #[id number], 177.8, cm, 03/05/22 10:05:00 EDT, Height Start [...] 12:00am April 03, 2024 6:17am Dexcom G7 [place] (4 sources) Start: 08-22-2024 Dexcom G7 Read er See Instructions, Use reader daily for blood sugar checks. Keep reader within 20 feet of the sensor and transmitter, # 1 EA, 0 Refill(s), [facility]acy: [facility] #[id number], Type 2 diabetes mellitus, 177.8, cm, 08/22/24 [...] 1 EA, 0 Refill(s), [facility]acy: [facility] #[id number], Type 2 diabetes mellitus, 177.8, cm, 08/22/24 [...] 1 EA, 0 Refill(s), [facility]acy: [facility] #[id number], Type 2 diabetes mellitus, 177.8, cm, 08/22/24 [...] 3 EA, 0 Refill(s), [facility]acy: [facility] #[id number], Type 2 diabetes mellitus, 177.8, cm, 08/22/24 [...] supply., # 3 EA, 0 Refill(s), Pharmacy: [facility] #[id number], Type 2 diabetes mellitus, 177.8, cm, 08/22/24 [...] supply., # 3 EA, 0 Refill(s), Pharmacy: [facility] #[id number], Type 2 diabetes mellitus, 177.8, cm, 08/22/24 [...] CHECKS, # 3 EA, 0 Refill(s), Pharmacy: [facility] #[id number], 177.8, cm, 08/22/24 14:59:00 EST, Height, 102.3, [...] 3 EA, 0 Refill(s), [facility]: [facility] #[id number], 177.8, cm, 08/22/24 14:59:00 EST, Height, 102.3, kg, 08/22/24 14:59:00 EST, Dosing Weight Start Date: 12/23/24 Status: Ordered Quantity: 3.0 Unit: EA Repeat number: 1 docusate sodium 100 mg oral capsule (1 source) Start: 03-07-2022 Colace 100 mg oral capsule Dose : 100 mg = 1 cap(s), Oral, BID, PRN as needed for constipation, # 20 cap(s), 0 Refill(s), Pharmacy: [facility] #[id number], 177.8, cm, 03/05/22 10:05:00 EDT, Height Start [...] 0 Refill(s), 05/21/25 11:42:00 AM EDT, Pharmacy: [facility] #30, 177.8, cm, 05/14/25 11:40:00 EDT, Height, [...] 40 tab(s), 0 Refill(s), [facility]: [facility] #[id number], 177.8, cm, 03/05/22 10:05:00 EDT, Height Start [...] # 15 mL, 5 Refill(s), Pharmacy: [facility] #[id number], 177.8, cm, 03/05/22 10:05:00 EDT, Height Start Date: 03/07/22 Status: Ordered Iron (2 sources) Start: 05-06-2025 take 1 capsule by mouth once daily Pnv 728-Ofdz-Gltgsw-Dha 90 mg iron- 1 mg-200 mg capsule [...] Drug Class(es) Dates Sig (Normalized) Sig (Original) [id number] 200 actuat albuterol 0.09 mg/actuat metered dose [...] # 60 tab(s), 3 Refill(s), [facility]: [facility] #[id number], 177.8, cm, 08/22/24 14:59:00 EST, Height, kg, [...] [Zofran Odt] 4 MG PO EVERY SIX JILWE-3-19-17 PRN 20 May 12, 2023 May 17, 2023 Discontinued Wiklrnxo-Jx-Okn-Fe-FA ( VITAMIN) tab (2 sources) Start: 02-03-2019 take 1 tablet by mouth once daily Dzitaazt-Gn-Jpf-Fe -FA ( VITAMIN) tab Take 1 tablet by mouth once daily. 30 tablet 11 02/03/2019 Suspended Start: 02-03-2019 take 1 tablet by [place] th once daily Btnspfrz-Pl-Nlq-Fe-FA ( VITAMIN) tab Take 1 tablet by [...] Reference Range Facility Final Surgical Pathology Rep [facility] 05-18-2025 Final Surgical Pathology Report . Pathology Reports Accession: Collected Date/Time: Received Date/Time: Pathologist: [id number] 05/14/2025 11:59 EDT 05/15/2025 07:15 EDT TAO TOBIAS MD Final Surgical Pathology Report DIAGNOSIS: PRODUCTS OF CONCEPTION: - FRAGMENTS OF HYPERSECRETORY ENDOMETRIUM, DECIDUALIZED TISSUE, CHORIONIC VILLI, AND BLOOD CLOT (PRODUCTS OF CONCEPTION) IDENTIFIED CLINICAL INFORMATION: Procedure: SUCTION DILATION AND CURETTAGE Preoperative diagnosis: MISSED Postoperative diagnosis: MISSED SPECIMEN: A PRODUCTS OF CONCEPTION GROSS DESCRIPTION: All parts labelled with patient name and [id number] Received in formalin labelled "products of conception" Specimen is received in a tissue collection bag and consists of multiple benavidez-brown hemorrhagic tissue fragments aggregating to 6 x 5.5 x 2 cm. No vesicles or parts are identified. RS-3 Ben Hines, Pathologists' Special Agent In Charge (ASCP) Performed by [facility] MICROSCOPIC DESCRIPTION: The microscopic examination is performed, except in the case of Gross Only. Verified by Pathology Report verified by [facility] TAO TOBIAS Sign out Date: 05/18/2025 14:37 Performing Lab: [facility], [address] [place] [address] Pathology Dept Disclaimer If ancillary studies were utilized, the following Laboratory Developed Test (LDT) disclaimer will apply: Under CLIA requirements, [facility] Pathology Laboratory is qualified to perform high complexity testing. For all ancillary, histochemical, in situ hybridization and immunostains, the controls are reviewed by the case pathologist, prior to and/or concurrent with the patients results to ensure appropriate staining the meets the performance specifications considered acceptable for patient testing. Performance characteristics of immunohistochemical and chromogenic in situ hybridization tests have been determined by [facility]ology [facility]. These tests are used for clinical purposes, they should not be regarded as investigational or for research. Normal [facility] .Auto Diffon 05-14-2025 Basophil, Absolute 0.0 10 3/mcL Normal 0.0-0.3 [facility] Comment on above: Performed By: #### C BC, ANEU, ABOGEL, ABSGEL, ADIFF #### [id number] [place], [place] [address] Basophils/100 WBC (Bld) 0.6 % Normal 0.0-2.5 [facility] Comment on above: Performed By: #### C BC, ANEU, ABOGEL, ABSGEL, ADIFF #### [facility] [address] [place], [place] [address] Eosinophil, Absolute 0.2 10 3/mcL Normal 0.0-0.7 [facility] Comment on above: Performed By: #### C BC, ANEU, ABOGEL, ABSGEL, ADIFF #### [address] [address] Eosinophils/100 WBC (Bld) 2.8 % Normal 0.0-6.0 [facility] Comment on above: Performed By: #### C BC, ANEU, ABOGEL, ABSGEL, ADIFF #### [address] [address] Lymphocyte, Absolute 2.4 10 3/mcL Normal 0.9-4.3 [facility] Comment on above: Performed By: #### C BC, ANEU, ABOGEL, ABSGEL, ADIFF #### [address] [address] Lymphocytes/100 WBC (Bld) 31.6 % Normal 20.0-40.0 [facility] Comment on above: Performed By: #### C BC, ANEU, ABOGEL, ABSGEL, ADIFF #### [address] [address] Monocyte, Absolute 0.5 10 3/mcL Normal 0.1-1.4 [facility] Comment on above: Performed By: #### C BC, ANEU, ABOGEL, ABSGEL, ADIFF #### [address] [address] Monocytes/100 WBC (Bld) 6.2 % Normal 2.0-13.0 [facility] Comment on above: Performed By: #### C BC, ANEU, ABOGEL, ABSGEL, ADIFF #### [address] [address] Neutrophils/100 WBC (Bld) 58.8 % Normal 50.0-75.0 [facility] Comment on above: Performed By: #### C BC, ANEU, ABOGEL, ABSGEL, ADIFF #### [address] [address] .NEUABSon 05-14-2025 Neutrophil, Absolute 4.4 10 3/mcL Normal 2.3-8.1 [facility] Comment on above: Performed By: #### C BC, ANEU, ABOGEL, ABSGEL, ADIFF #### [address] [address] ABO/Rh (Gel)on 05-14-2025 ABO/Rh Interp Positive Invalid Interpretation Code [facility] Comment on above: Performed By: #### C BC, ANEU, ABOGEL, ABSGEL, ADIFF #### [address] [address] ABS (Gel)on 05-14-2025 ABSC Interp (Gel) Negative Normal [facility] Comment on above: Performed By: #### C BC, ANEU, ABOGEL, ABSGEL, ADIFF #### [address] [address] CBCon 05-14-2025 Erythrocyte distribution width (RBC) [Ratio] 16.0 % High 11.5-15.5 [facility] Comment on above: Performed By: #### C BC, ANEU, ABOGEL, ABSGEL, ADIFF #### [address] [address] Hematocrit (Bld) [Volume fraction] 32.9 % Low 34.0-46.0 [facility] Comment on above: Performed By: #### C BC, ANEU, ABOGEL, ABSGEL, ADIFF #### [address] [address] Hgb 11.2 G/dL Low 12.0-16.0 [facility] Comment on above: Performed By: #### C BC, ANEU, ABOGEL, ABSGEL, ADIFF #### [address] [address] MCH (RBC) [Entitic mass] 29.6 pg Normal 27.0-33.0 [facility] Comment on above: Performed By: #### C BC, ANEU, ABOGEL, ABSGEL, ADIFF #### [address] [address] MCHC 33.9 G/dL Normal 32.0-36.0 [facility] Comment on above: Performed By: #### C BC, ANEU, ABOGEL, ABSGEL, ADIFF #### [address] [address] MCV (RBC) [Entitic vol] 87.2 fL Normal 80.0-99.0 [facility] Comment on above: Performed By: #### C BC, ANEU, ABOGEL, ABSGEL, ADIFF #### [address] [address] Platelet 153 10 3/mcL Normal 150-450 [facility] Comment on above: Performed By: #### C BC, ANEU, ABOGEL, ABSGEL, ADIFF #### [place] [address] Platelet mean volume (Bld) [Entitic vol] 8.9 fL Normal 6.6-10.5 [facility] Comment on above: Performed By: #### C BC, ANEU, ABOGEL, ABSGEL, ADIFF #### [address] [address] RBC 3.77 10 6/mcL Low 4.10-5.30 [facility] Comment on above: Performed By: #### C BC, ANEU, ABOGEL, ABSGEL, ADIFF #### [place] [id number] WBC 7.5 10 3/mcL Normal 4.5-10.8 [facility] Comment on above: Performed By: #### C BC, ANEU, ABOGEL, ABSGEL, ADIFF #### [place] [address] LABORATORYOrdered By: Whitney Chand on 05-14-2025 ABO and Rh group Nom (Bld) Blood group O Rh(D) positive Invalid Interpretation Code AO BB Auto SS Blood group antibody screen Ql Negative ABSC (05/14/25 11:24 AM) Normal AO BB Auto SS LABORATORYOrdered By: [employer] on 05-14-2025 Basophils (Bld) [#/Vol] 0.0 103/mcL Normal 0.0 [...] HCGQon 05-13-2025 hCG, quantitative 1796.1 mIU/mL Normal [facility] Comment on above: Result Comment: HCG [...] mIU/mL Performed By: #### H CGQ #### [address] [address] HCGQon 05-11-2025 hCG, quantitative 6989.5 mIU/mL Normal [facility] Comment on above: Result Comment: HCG [...] Performed By: #### H CGQ #### [address] [place], [place] [address] Absolute lymphocyte countOrd ered By: Nelson Ulloa on 05-10-2025 Lymphocytes Auto (Unsp spec) [#/Vol] 2.75 10*3/uL 0.83-4.51 [facility] Absolute neutrophil countOrd ered By: Nelson Ulloa on 05-10-2025 Neutrophils (Bld) [#/Vol] 4.0 10*3/uL 2.0-7.7 [facility] Automated lymphocyte count a s percentage of total leukocytesOrdered By: Nelson Ulloa on 05-10-2025 Lymphocytes/100 WBC Auto (Unsp spec) 37.3 % 19-41 [facility] Basophil percentageOrdered B y: Nelson Ulloa on 05-10-2025 Basophils/100 WBC (Bld) 0.3 % 0-1 [facility] CBC W/Diff, Automatedon 04-29 Absolute Lymph 2.75 X10 3/uL Normal 0.83-4.51 [facility] Comment on above: Performed By: #### L 100.0100, L700.8000 #### [facility] [address] [place], [address] Absolute Neut 4.0 X10 3/uL Normal 2.0-7.7 [facility] Comment on above: Performed By: #### L 100.0100, L700.8000 #### [facility] [address] [place], [address] Basophils/100 WBC (Bld) 0.3 % Normal 0-1 [facility] Comment on above: Performed By: #### L 100.0100, L700.8000 #### [facility] [address] [place], [address] Eosinophils/100 WBC (Bld) 2.0 % Normal 0-5 [facility] Comment on above: Performed By: #### L 100.0100, L700.8000 #### [facility] [address] [place], [address] Erythrocyte distribution width (RBC) [Ratio] 15.0 % High 11.6-14.6 [facility] Comment on above: Performed By: #### L 100.0100, L700.8000 #### [facility] [address] [place], [address] Hematocrit (Bld) [Volume fraction] 33.7 % Low 37-47 [facility] Comment on above: Performed By: #### L 100.0100, L700.8000 #### [facility] [address] [place], [address] Hemoglobin (Bld) [Mass/Vol] 11.4 g/dL Low 12.0-15.0 [facility] Comment on above: Performed By: #### L 100.0100, L700.8000 #### [facility] [address] [place], [address] IG% 0.300 Normal 0.0-0.9 [facility] Comment on above: Result Comment: IG% - Immature Granulocytes (promyelocytes, myelocytes and metamyelocytes) > 1% indicates that a LEFT SHIFT is Present. Performed By: #### L 100.0100, L700.8000 #### [facility] [address] [place], [address] Lymphocytes/100 WBC (Bld) 37.3 % Normal 19-41 [facility] Comment on above: Performed By: #### L 100.0100, L700.8000 #### [facility] [address] [place], [address] MCH (RBC) [Entitic mass] 29.2 pg Normal 27.0-32.0 [facility] Comment on above: Performed By: #### L 100.0100, L700.8000 #### [facility] [address] [place], [address] MCHC (RBC) [Mass/Vol] 33.8 g/dL Normal 32-36 [facility] Comment on above: Performed By: #### L 100.0100, L700.8000 #### [facility] [address] [place], [address] MCV (RBC) [Entitic vol] 86.4 fL Normal 81-99 [facility] Comment on above: Performed By: #### L 100.0100, L700.8000 #### [facility] [address] [place], [address] Monocytes/100 WBC (Bld) 5.7 % Normal 0-10 [facility] Comment on above: Performed By: #### L 100.0100, L700.8000 #### [facility] [address] [place], [address] Neutrophils/100 WBC (Bld) 54.4 % Normal 47-70 [facility] Comment on above: Performed By: #### L 100.0100, L700.8000 #### [facility] [address] [place], [address] Nucleated RBC (Bld) [#/Vol] 0 10*3/uL Normal 0-5 [facility] Comment on above: Performed By: #### L 100.0100, L700.8000 #### [facility] [address] [place], [address] Platelet mean volume (Bld) [Entitic vol] 10.8 fL Normal 6.2-12.0 [facility] Comment on above: Performed By: #### L 100.0100, L700.8000 #### [facility] [address] [place], [address] Platelets (Bld) [#/Vol] 171 10*3/uL Normal 150-450 [facility] Comment on above: Performed By: #### L 100.0100, L700.8000 #### [facility] [address] [place], [address] RBC (Bld) [#/Vol] 3.90 10*6/uL Low 4.2-5.4 [facility] Comment on above: Performed By: #### L 100.0100, L700.8000 #### [facility] [address] [place], [address] RDW SD 47.8 fl High 35.1-43.9 [facility] Comment on above: Performed By: #### L 100.0100, L700.8000 #### [facility] [address] [place], [address] WBC (Bld) [#/Vol] 7.4 10*3/uL Normal 4.4-11.0 [facility] Comment on above: Performed By: #### L 100.0100, L700.8000 #### [facility] [address] [place], [address] Emergency Department Summary on 05-10-2025 Emergency Department Summary [facility] Medical Records Department [address] [place] [address] Emergency Department Summary 05/10/25 MR#: [id number] Acct: [id number] Name: BETSY MESA Rep #: [id number] : 1995 30 From: Nelson Ulloa DO [...] she also has an appointment with her BOOSTER PUMP OPERATOR in roughly 24 hours but because of the return bleeding she was concerned and presents for evaluation [facility] Medical History Migraine Anxiety Paresthesias Cervical radiculopathy [...] emergent ultrasound. (more content not included)... Normal [facility] Eosinophil percentageOrdered By: Nelson Ulloa on 05-10-2025 Eosinophils/100 WBC (Bld) 2.0 % 0-5 [facility] Erythrocyte distribution wid th ratioOrdered By: Nelson Ulloa on 05-10-2025 Erythrocyte distribution width (RBC) [Ratio] 15.0 % High 11.6-14.6 [facility] Erythrocyte distribution wid th standard deviationOrdered By: Nelson Ulloa on 05-10-2025 Erythrocyte distribution width (RBC) [Ratio] 47.8 fl High 35.1-43.9 [facility] Hematocrit Auto (Bld) [Volum e fraction]Ordered By: Nelson Ulloa on 05-10-2025 Hematocrit (Bld) [Volume fraction] 33.7 % Low 37-47 [facility] Hemoglobin measurementOrdere d By: Nelson Ulloa on 05-10-2025 Hemoglobin (Bld) [Mass/Vol] 11.4 g/dL Low 12.0-15.0 [facility] Immature granulocytes/100 WB C Auto (Bld)Ordered By: Nelson Ulloa on 05-10-2025 Immature granulocytes/100 WBC (Bld) 0.300 % 0.0-0.9 [facility] Comment on above: IG% - Immature Granu locytes (promyelocytes, myelocytes and metamyelocytes) > 1% indicates that a LEFT SHIFT is Present. MCV (mean corpuscular volume ) determinationOrdered By: Nelson Ulloa on 05-10-2025 MCV (RBC) [Entitic vol] 86.4 fL 81-99 [facility] Mean corpuscular hemoglobin (MCH) determinationOrdered By: Nelson Ulloa on 05-10-2025 MCH (RBC) [Entitic mass] 29.2 pg 27.0-32.0 [facility] Mean corpuscular hemoglobin concentration (MCHC) determinationOrdered By: Nelson Ulloa on 05-10-2025 MCHC (RBC) [Mass/Vol] 33.8 g/dL 32-36 [facility] Mean platelet volume determi nationOrdered By: Nelson Ulloa on 05-10-2025 Platelet mean volume (Bld) [Entitic vol] 10.8 fL 6.2-12.0 [facility] Monocyte percentageOrdered B y: Nelson Ulloa on 05-10-2025 Monocytes/100 WBC (Bld) 5.7 % 0-10 [facility] Neutrophil percentageOrdered By: Nelson Ulloa on 05-10-2025 Neutrophils/100 WBC (Bld) 54.4 % 47-70 [facility] Nucleated red blood cell per centageOrdered By: Nelson Ulloa on 05-10-2025 Nucleated RBC/100 WBC (Bld) [Ratio] 0 % 0-5 [facility] Platelet countOrdered By: Maranda Ulloa on 05-10-2025 Platelets (Bld) [#/Vol] 171 10*3/uL 150-450 [facility] RBC Auto (Bld) [#/Vol]Ordere d By: Nelson Ulloa on 05-10-2025 RBC (Bld) [#/Vol] 3.90 10*6/uL Low 4.2-5.4 [facility] Serum human chorionic gonado tropin detection for pregnancyOrdered By: Nelson Ulloa on 05-10-2025 HCG ( test) [place]l [address] mIU/mL High <9 [facility] Comment on above: Gestational Age0.2-1 Week: 5-50 mIU/mL1-2 Weeks: 50-500 mIU/mL2-3 Weeks: 100-5000 mIU/mL3-4 Weeks: 500-10,000 mIU/mL4-5 Weeks:1000-50,000 mIU/mL5-6 Weeks: 10,000-100,000 mIU/mL6-8 Weeks: 15,000-200,000 mIU/mL2-3 Months:10,000-100,000 mIU/mL White blood cell (WBC) count Ordered By: Nelson Ulloa on 05-10-2025 WBC (Bld) [#/Vol] 7.4 10*3/uL 4.4-11.0 [facility] hCG Titer Quant., Serumon HCG QUANT. 05726 mIU/mL High <9 non-preg [facility] Comment on above: Result Comment: Gest ational Age 0.2-1 Week: 5-50 mIU/mL 1-2 Weeks: 50-500 mIU/mL 2-3 Weeks: 100-5000 mIU/mL 3-4 Weeks: 500-10,000 mIU/mL 4-5 Weeks:1000-50,000 mIU/mL 5-6 Weeks: 10,000-100,000 mIU/mL 6-8 Weeks: 15,000-200,000 mIU/mL 2-3 Months:10,000-100,000 mIU/mL Performed By: #### L 100.0100, L700.8000 #### [facility] [address] [place], [place], [id number] Absolute lymphocyte countOrd ered By: René Mohan on 05-06-2025 Lymphocytes Auto (Unsp spec) [#/Vol] 2.43 10*3/uL 0.83-4.51 [facility] Absolute neutrophil countOrd ered By: René Mohan on 05-06-2025 Neutrophils (Bld) [#/Vol] 4.5 10*3/uL 2.0-7.7 [facility] Anion gap in Serum or Plasma Ordered By: René Mohan on 05-06-2025 Anion gap [Moles/Vol] 9 mmol/L 5-15 [facility] Automated lymphocyte count a s percentage of total leukocytesOrdered By: René Mohan on 05-06-2025 Lymphocytes/100 WBC Auto (Unsp spec) 31.8 % 19-41 [facility] [id number] 05-06-2025 ABO and Rh group Nom (Bld) Blood group O Rh(D) positive Normal [facility] Comment on above: Performed By: #### B 882-1, L700.8000, L500.4050, L100.0100 ####[facility] [address] [place], [place], [id number] BUN/creatinine ratioOrdered By: René Mohan on 05-06-2025 Urea nitrogen/Creatinine [Mass ratio] 13.3 mg/mg 10-20 [facility] Basophil percentageOrdered B y: René Mohan on 05-06-2025 Basophils/100 WBC (Bld) 0.3 % 0-1 [facility] Bilirubin Test strip Ql (U)O rdered By: René Mohan on 05-06-2025 Bilirubin Ql (U) Negative Negative [facility] Bilirubin, totalOrdered By: René Mohan on 05-06-2025 Bilirubin [Mass/Vol] 0.19 mg/dL 0.00-1.30 [facility] CBC W/Diff, Automatedon Absolute Lymph 2.43 X10 3/uL Normal 0.83-4.51 [facility] Comment on above: Performed By: #### Ruth Ann 882-1, L700.8000, L500.4050, L100.0100 ####[facility] [address] [place], [address] Absolute Neut 4.5 X10 3/uL Normal 2.0-7.7 [facility] Comment on above: Performed By: #### Ruth Ann 882-1, L700.8000, L500.4050, L100.0100 ####[facility] [address] [place], [address] Basophils/100 WBC (Bld) 0.3 % Normal 0-1 [facility] Comment on above: Performed By: ###Dwight Vallecillo 882-1, L700.8000, L500.4050, L100.0100 ####[facility] [address] [place], [address] Eosinophils/100 WBC (Bld) 2.2 % Normal 0-5 [facility] Comment on above: Performed By: ###Dwight Vallecillo 882-1, L700.8000, L500.4050, L100.0100 ####[facility] [address] [place], [address] Erythrocyte distribution width (RBC) [Ratio] 15.2 % High 11.6-14.6 [facility] Comment on above: Performed By: #### Ruth Ann 882-1, L700.8000, L500.4050, L100.0100 ####[facility] [address] [place], [address] Hematocrit (Bld) [Volume fraction] 34.9 % Low 37-47 [facility] Comment on above: Performed By: #### Ruth Ann 882-1, L700.8000, L500.4050, L100.0100 ####[facility] [address] [place], [address] Hemoglobin (Bld) [Mass/Vol] 11.7 g/dL Low 12.0-15.0 [facility] Comment on above: Performed By: #### Ruth Ann 882-1, L700.8000, L500.4050, L100.0100 ####[facility] [address] [place], [address] IG% 0.300 Normal 0.0-0.9 [facility] Comment on above: Result Comment: IG% - Immature Granulocytes (promyelocytes, myelocytes and metamyelocytes) > 1% indicates that a LEFT SHIFT is Present. Performed By: #### Ruth Ann 882-1, L700.8000, L500.4050, L100.0100 ####[facility] [address] [place], [address] Lymphocytes/100 WBC (Bld) 31.8 % Normal 19-41 [facility] Comment on above: Performed By: #### Ruth Ann 882-1, L700.8000, L500.4050, L100.0100 ####[facility] [address] [place], [address] MCH (RBC) [Entitic mass] 29.0 pg Normal 27.0-32.0 [facility] Comment on above: Performed By: #### Ruth Ann 882-1, L700.8000, L500.4050, L100.0100 ####[facility] [address] [place], [address] MCHC (RBC) [Mass/Vol] 33.5 g/dL Normal 32-36 [facility] Comment on above: Performed By: #### Ruth Ann 882-1, L700.8000, L500.4050, L100.0100 ####[facility] [address] [place], [address] MCV (RBC) [Entitic vol] 86.4 fL Normal 81-99 [facility] Comment on above: Performed By: #### Ruth Ann 882-1, L700.8000, L500.4050, L100.0100 ####[facility] [address] [place], [address] Monocytes/100 WBC (Bld) 6.9 % Normal 0-10 [facility] Comment on above: Performed By: #### Ruth Ann 882-1, L700.8000, L500.4050, L100.0100 ####[facility] [address] [place], [address] Neutrophils/100 WBC (Bld) 58.5 % Normal 47-70 [facility] Comment on above: Performed By: ###Dwight Vallecillo 882-1, L700.8000, L500.4050, L100.0100 ####[facility] [address] [place], [address] Nucleated RBC (Bld) [#/Vol] 0 10*3/uL Normal 0-5 [facility] Comment on above: Performed By: ###Dwight Vallecillo 882-1, L700.8000, L500.4050, L100.0100 ####[facility] [address] [place], [address] Platelet mean volume (Bld) [Entitic vol] 11.2 fL Normal 6.2-12.0 [facility] Comment on above: Performed By: ###Dwight Vallecillo 882-1, L700.8000, L500.4050, L100.0100 ####[facility] [address] [place], [address] Platelets (Bld) [#/Vol] 180 10*3/uL Normal 150-450 [facility] Comment on above: Performed By: #### Ruth Ann 882-1, L700.8000, L500.4050, L100.0100 ####[facility] [address] [place], [address] RBC (Bld) [#/Vol] 4.04 10*6/uL Low 4.2-5.4 [facility] Comment on above: Performed By: ###Dwight Vallecillo 882-1, L700.8000, L500.4050, L100.0100 ####[facility] [address] [place], [address] RDW SD 48.6 fl High 35.1-43.9 [facility] Comment on above: Performed By: #### Ruth Ann 882-1, L700.8000, L500.4050, L100.0100 ####[facility] [address] [place], [address] WBC (Bld) [#/Vol] 7.6 10*3/uL Normal 4.4-11.0 [facility] Comment on above: Performed By: ###Dwight Vallecillo 882-1, L700.8000, L500.4050, L100.0100 ####[facility] [address] [place], [address] Carbon dioxide, total [Moles /volume] in Central venous bloodOrdered By: René Mohan on 05-06-2025 CO2 [Moles/Vol] 23.3 mmol/L 21.0-32.0 [facility] Chloride assayOrdered By: Chivo Mohan on 05-06-2025 Chloride [Moles/Vol] 103 mmol/L 98-108 [facility] Comprehensive Metabolic Prof ilon 05-06-2025 Albumin [Mass/Vol] 4.1 g/dL Normal 3.5-5.0 [facility] Comment on above: Performed By: ###Dwight Vallecillo 882-1, L700.8000, L500.4050, L100.0100 ####[facility] [address] [place], [address] Albumin/Globulin [Mass ratio] 1.5 {ratio} Normal 0.9-2.4 [facility] Comment on above: Performed By: #### Ruth Ann 882-1, L700.8000, L500.4050, L100.0100 ####[facility] [address] [place], [address] ALK PHOS 57 U/L Normal 35-104 [facility] Comment on above: Performed By: #### Ruth Ann 882-1, L700.8000, L500.4050, L100.0100 ####[facility] [address] [place], [address] ALT [Catalytic activity/Vol] 13 U/L Normal <=34 [facility] Comment on above: Performed By: #### Ruth Ann 882-1, L700.8000, L500.4050, L100.0100 ####[facility] [address] [place], [address] AST [Catalytic activity/Vol] 15 U/L Normal <=31 [facility] Comment on above: Performed By: #### Ruth Ann 882-1, L700.8000, L500.4050, L100.0100 ####[facility] [address] [place], [address] Bilirubin [Mass/Vol] 0.19 mg/dL Normal 0.00-1.30 [facility] Comment on above: Performed By: #### Ruth Ann 882-1, L700.8000, L500.4050, L100.0100 ####[facility] [address] [place], [address] BUN/CRE 13.3 RATIO Normal 10-20 [facility] Comment on above: Performed By: #### Ruth Ann 882-1, L700.8000, L500.4050, L100.0100 ####[facility] [address] [place], [address] Calcium [Mass/Vol] 9.3 mg/dL Normal 7.6-11.0 [facility] Comment on above: Performed By: #### Ruth Ann 882-1, L700.8000, L500.4050, L100.0100 ####[facility] [address] [place], [address] Chloride [Moles/Vol] 103 mmol/L Normal 98-108 [facility] Comment on above: Performed By: #### Ruth Ann 882-1, L700.8000, L500.4050, L100.0100 ####[facility] [address] [place], [address] CO2 [Moles/Vol] 23.3 mmol/L Normal 21.0-32.0 [facility] Comment on above: Performed By: #### Ruth Ann 882-1, L700.8000, L500.4050, L100.0100 ####[facility] [address] [place], [address] Creatinine [Mass/Vol] 0.66 mg/dL Low 0.70-1.20 [facility] Comment on above: Performed By: #### Ruth Ann 882-1, L700.8000, L500.4050, L100.0100 ####[facility] [address] [place], [address] ECRCL 165.01 ml/min Normal 50-250 [facility] Comment on above: Performed By: #### Ruth Ann 882-1, L700.8000, L500.4050, L100.0100 ####[facility] [address] [place], [address] GAP 9 Normal 5-15 [facility] Comment on above: Performed By: #### Ruth Ann 882-1, L700.8000, L500.4050, L100.0100 ####[facility] [address] [place], [address] GFR/1.73 sq M.predicted among non-blacks MDRD (S/P/Bld) [Vol rate/Area] 121 mL/min/{1.73_m2} Normal >60 [facility] Comment on above: Result Comment: mL/m in/1.73m2 CKD-EPI Creatinine Equation (2020) Performed By: #### Ruth Ann 882-1, L700.8000, L500.4050, L100.0100 ####[facility] [address] [place], [address] Globulin (S) [Mass/Vol] 2.8 g/dL Normal 2.2-4.2 [facility] Comment on above: Performed By: #### Ruth Ann 882-1, L700.8000, L500.4050, L100.0100 ####[facility] [address] [place], [address] Glucose [Mass/Vol] 115 mg/dL High 70-99 [facility] Comment on above: Performed By: ###Dwight Vallecillo 882-1, L700.8000, L500.4050, L100.0100 ####[facility] [address] [place], [address] Potassium [Moles/Vol] 4.1 mmol/L Normal 3.3-5.1 [facility] Comment on above: Performed By: #### Ruth Ann 882-1, L700.8000, L500.4050, L100.0100 ####[facility] [address] [place], [address] Sodium [Moles/Vol] 136 mmol/L Normal 133-145 [facility] Comment on above: Performed By: #### Ruth Ann 882-1, L700.8000, L500.4050, L100.0100 ####[facility] [address] [place], [address] T PROT 6.9 g/dL Normal 5.9-8.4 [facility] Comment on above: Performed By: #### B 882-1, L700.8000, L500.4050, L100.0100 ####[facility] [address] 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 She presents because of increased vaginal bleeding that started 2 days ago, and pelvic cramping as well. [facility] Medical History Migraine Anxiety Paresthesias Cervical radiculopathy [...] using it. Const Vital Signs: 05/06/25 18:00 10/08/25 20:33 05/06/25 22:07 Temperature 97.9 F 97.2 [...] I will perform a pelvic examination with industrial design intern to see the extent of bleeding that [...] antibiotics a (more content not included)... Normal [facility] Eosinophil percentageOrdered By: René Mohan on 05-06-2025 Eosinophils/100 WBC (Bld) 2.2 % 0-5 [facility] Erythrocyte distribution wid th ratioOrdered By: René Mohan on 05-06-2025 Erythrocyte distribution width (RBC) [Ratio] 15.2 % High 11.6-14.6 [facility] Erythrocyte distribution wid th standard deviationOrdered By: René Mohan on 05-06-2025 Erythrocyte distribution width (RBC) [Ratio] 48.6 fl High 35.1-43.9 [facility] Glomerular filtration rate ( GFR) estimation/1.73 sq m using serum, plasma, or whole bOrdered By: René Mohan on 05-06-2025 GFR/1.73 sq M.predicted among non-blacks MDRD (S/P/Bld) [Vol rate/Area] 121 mL/min/{1.73_m2} >60 [facility] Comment on above: mL/min/1.73m2 CKD-EP I Creatinine Equation (2020) Hematocrit Auto (Bld) [Volum e fraction]Ordered By: René Mohan on 05-06-2025 Hematocrit (Bld) [Volume fraction] 34.9 % Low 37-47 [facility] Hemoglobin measurementOrdere d By: René Mohan on 05-06-2025 Hemoglobin (Bld) [Mass/Vol] 11.7 g/dL Low 12.0-15.0 [facility] Immature granulocytes/100 WB C Auto (Bld)Ordered By: René Mohan on 05-06-2025 Immature granulocytes/100 WBC (Bld) 0.300 % 0.0-0.9 [facility] Comment on above: IG% - Immature Granu locytes (promyelocytes, myelocytes and metamyelocytes) > 1% indicates that a LEFT SHIFT is Present. Ketones Test strip Ql (U)Ord ered By: René Mohan on 05-06-2025 Ketones Ql (U) Negative Negative [facility] Laboratory - Chemistry and C hemistry - challengeOrdered By: René Mohan on 05-06-2025 AST [Catalytic activity/Vol] 15 U/L <32 [facility] MCV (mean corpuscular volume ) determinationOrdered By: René Mohan on 05-06-2025 MCV (RBC) [Entitic vol] 86.4 fL 81-99 [facility] Mean corpuscular hemoglobin (MCH) determinationOrdered By: Reén Mohan on 05-06-2025 MCH (RBC) [Entitic mass] 29.0 pg 27.0-32.0 [facility] Mean corpuscular hemoglobin concentration (MCHC) determinationOrdered By: René Mohan on 05-06-2025 MCHC (RBC) [Mass/Vol] 33.5 g/dL 32-36 [facility] Mean platelet volume determi nationOrdered By: René Mohan on 05-06-2025 Platelet mean volume (Bld) [Entitic vol] 11.2 fL 6.2-12.0 [facility] Microscopic analysis of urin e for red blood cells (RBC)Ordered By: René Mohan on 05-06-2025 Microscopic analysis of urine for red blood cells (RBC) 0-5 SEEN /hpf 0-5 [facility] Monocyte percentageOrdered B y: René Mohan on 05-06-2025 Monocytes/100 WBC (Bld) 6.9 % 0-10 [facility] Mucus LM Ql (Urine sed)Order ed By: René Mohan on 05-06-2025 Mucus Ql (Urine sed) 0 SEEN /hpf [facility] Neutrophil percentageOrdered By: René Mohan on 05-06-2025 Neutrophils/100 WBC (Bld) 58.5 % 47-70 [facility] Nitrite Test strip Ql (U)Ord ered By: René Mohan on 05-06-2025 Nitrite Ql (U) Negative Negative [facility] Nucleated red blood cell per centageOrdered By: René Mohan on 05-06-2025 Nucleated RBC/100 WBC (Bld) [Ratio] 0 % 0-5 [facility] Platelet countOrdered By: Chivo Mohan on 05-06-2025 Platelets (Bld) [#/Vol] 180 10*3/uL 150-450 [facility] Potassium measurement (mass/ volume)Ordered By: René Mohan on 05-06-2025 Potassium (Unsp spec) [Mass/Vol] 4.1 mmol/L 3.3-5.1 [facility] Protein Test strip Ql (U)Ord ered By: René Mohan on 05-06-2025 Protein Ql (U) Negative Negative [facility] RBC Auto (Bld) [#/Vol]Ordere d By: René Mohan on 05-06-2025 RBC (Bld) [#/Vol] 4.04 10*6/uL Low 4.2-5.4 [facility] Serum creatinine measurement (mass/volume)Ordered By: René Mohan on 05-06-2025 Creatinine [Mass/Vol] 0.66 mg/dL Low 0.70-1.20 [facility] Serum globulin measurementOr dered By: René Mohan on 05-06-2025 Globulin (S) [Mass/Vol] 2.8 g/dL 2.2-4.2 [facility] Serum glucose measurement (m ass/volume)Ordered By: René Mohan on 05-06-2025 Glucose [Mass/Vol] 115 mg/dL High 70-99 [facility] Serum human chorionic gonado tropin detection for pregnancyOrdered By: René Mohan on 05-06-2025 HCG ( test) Ql [address] mIU/mL High <9 [facility] Comment on above: Gestational Age0.2-1 Week: 5-50 mIU/mL1-2 Weeks: 50-500 mIU/mL2-3 Weeks: 100-5000 mIU/mL3-4 Weeks: 500-10,000 mIU/mL4-5 Weeks:1000-50,000 mIU/mL5-6 Weeks: 10,000-100,000 mIU/mL6-8 Weeks: 15,000-200,000 mIU/mL2-3 Months:10,000-100,000 mIU/mL Serum or plasma alanine willett otransferase (ALT) measurementOrdered By: René Mohan on 05-06-2025 ALT [Catalytic activity/Vol] 13 U/L <35 [facility] Serum or plasma albumin jelani urement (mass/volume)Ordered By: René Mohan on 05-06-2025 Albumin [Mass/Vol] 4.1 g/dL 3.5-5.0 [facility] Serum or plasma albumin/glob ulin mass ratioOrdered By: René Mohan on 05-06-2025 Albumin/Globulin [Mass ratio] 1.5 {ratio} 0.9-2.4 [facility] Serum or plasma alkaline vincent sphatase measurementOrdered By: René Mohan on 05-06-2025 ALP [Catalytic activity/Vol] 57 U/L 35-104 [facility] Serum or plasma calcium jelani urement (mass/volume)Ordered By: René Mohan on 05-06-2025 Calcium [Mass/Vol] 9.3 mg/dL 7.6-11.0 [facility] Serum or plasma urea nitroge n measurement (mass/volume)Ordered By: René Mohan on 05-06-2025 Urea nitrogen [Mass/Vol] 9 mg/dL 4-19 [facility] Sodium levelOrdered By: René Mohan on 05-06-2025 Sodium [Moles/Vol] 136 mmol/L 133-145 [facility] Squamous epithelial cells de tection in urine sediment by light microscopyOrdered By: René Mohan on 05-06-2025 Epithelial cells.squamous LM Ql (Urine sed) 5-10 SEEN /hpf 5-10 [facility] Total proteinOrdered By: Estelita Mohan on 05-06-2025 Protein [Mass/Vol] 6.9 g/dL 5.9-8.4 [facility] Transvaginal w/Preg USon Transvaginal w/Preg US [facility] Imaging Services [address] [place], [place] [id number] Transvaginal w/Preg US MR#: [id number] Acct: [id number] Name: BETSY MESA Rep #: [id number] : 1995 F 30 From: Laurita Talley PCP: ARLINE CORADO Status: [facility] ER Study: Transvaginal w/Preg US Date of Exam: 05/06/25 Exam# [id number] Ordering Dr: René Mohan MD PROCEDURE: TRANSVAGINAL [...] x 3.4 x 1.8 cm. Reading Location: [id number] CC: Dr. René Mohan MD; ARLINE CORADO Lay Out Maker: Signed Normal [facility] Urinalysis, Completeon 05-06 EPI,SQUAMOUS 5-10 SEEN Normal 5-10 [facility] Comment on above: Order Comment: CLEAN CATCH Performed By: #### L 400.0001 ####[facility] [address] [place], [address] RBC 0-5 SEEN Normal 0-5 [facility] Comment on above: Order Comment: CLEAN CATCH Performed By: #### L 400.0001 ####[facility] [address] [place], [address] WBC 0-5 SEEN Normal 0-5 [facility] Comment on above: Order Comment: CLEAN CATCH Performed By: #### L 400.0001 ####[facility] [address] [place], [address] BACTERIA 0 SEEN Normal None Seen [facility] Comment on above: Order Comment: CLEAN CATCH Performed By: #### L 400.0001 ####[facility] [address] [place], [address] Mucus Ql (Urine sed) 0 SEEN Normal [facility] Comment on above: Order Comment: CLEAN CATCH Performed By: #### L 400.0001 ####[facility] [address] [place], [address] Urine clarityOrdered By: Estelita Mohan on 05-06-2025 Clarity (U) Clear Clear [facility] Urine color determinationOrd ered By: René Mohan on 05-06-2025 Color (U) Yellow Yellow [facility] Urine glucose detectionOrder ed By: René Mohan on 05-06-2025 Glucose Ql (U) Normal mg/dl Normal [facility] Urine leukocyte esterase det ection by dipstickOrdered By: René Mohan on 05-06-2025 Leukocyte esterase Test strip Ql (U) 25 /ul High Negative [facility] Urine pHOrdered By: René tolbert on 05-06-2025 pH (U) 6.0 [pH] 5.0 - 8.0 [facility] Urine sediment bacteria coun t by microscopy (number/high power field)Ordered By: René Mohan on 05-06-2025 Bacteria LM.HPF (Urine sed) [#/Area] 0 /[HPF] None Seen [facility] Urine specific gravity measu rementOrdered By: René Mohan on 05-06-2025 Specific gravity (U) [Rel density] 1.020 1.002-1.030 [facility] Urine urobilinogen measureme ntOrdered By: René Mohan on 05-06-2025 Urobilinogen Ql (U) Normal mg/dl Normal [facility] White blood cell (WBC) count Ordered By: René Mohan on 05-06-2025 WBC (Bld) [#/Vol] 7.6 10*3/uL 4.4-11.0 [facility] White blood cell countOrdere d By: René Mohan on 05-06-2025 White blood cell count 0-5 SEEN /hpf 0-5 [facility] hCG Titer Quant., Serumon HCG QUANT. 22494 mIU/mL High <9 non-preg [facility] Comment on above: Result Comment: Gest ational Age 0.2-1 Week: 5-50 mIU/mL 1-2 Weeks: 50-500 mIU/mL 2-3 Weeks: 100-5000 mIU/mL 3-4 Weeks: 500-10,000 mIU/mL 4-5 Weeks:1000-50,000 mIU/mL 5-6 Weeks: 10,000-100,000 mIU/mL 6-8 Weeks: 15,000-200,000 mIU/mL 2-3 Months:10,000-100,000 mIU/mL Performed By: #### B 882-1, L700.8000, L500.4050, L100.0100 ####[facility] [address] [place], [address] Absolute lymphocyte countOrd ered By: Ludwig Aranda on 05-03-2025 Lymphocytes Auto (Unsp spec) [#/Vol] 2.84 10*3/uL 0.83-4.51 [facility] Absolute neutrophil countOrd ered By: Ludwigariel Aranda on 05-03-2025 Neutrophils (Bld) [#/Vol] 4.8 10*3/uL 2.0-7.7 [facility] Anion gap in Serum or Plasma Ordered By: Ludwigariel Aranda on 05-03-2025 Anion gap [Moles/Vol] 11 mmol/L 12-11 [facility] Automated lymphocyte count a s percentage of total leukocytesOrdered By: Ludwigariel Aranda on 05-03-2025 Lymphocytes/100 WBC Auto (Unsp spec) 34.3 % [facility] BUN/creatinine ratioOrdered By: Ludwigariel Aranda on 05-03-2025 Urea nitrogen/Creatinine [Mass ratio] 12.3 mg/mg 05-18 [facility] Basic Metabolic Profile (BMP )on 05-03-2025 BUN/CRE 12.3 RATIO Normal 05-18 [facility] Comment on above: Performed By: #### L 500.2500, L700.8000, L100.0100 ####[facility] [address] [place], [address] Calcium [Mass/Vol] 9.6 mg/dL Normal 7.6-11.0 [facility] Comment on above: Performed By: #### L 500.2500, L700.8000, L100.0100 ####[facility] [address] [place], [address] Chloride [Moles/Vol] 104 mmol/L Normal 98-108 [facility] Comment on above: Performed By: #### L 500.2500, L700.8000, L100.0100 ####[facility] [address] [place], [address] CO2 [Moles/Vol] 21.7 mmol/L Normal 21.0-32.0 [facility] Comment on above: Performed By: #### L 500.2500, L700.8000, L100.0100 ####[facility] [address] [place], [address] Creatinine [Mass/Vol] 0.69 mg/dL Low 0.70-1.20 [facility] Comment on above: Performed By: #### L 500.2500, L700.8000, L100.0100 ####[facility] [address] [place], [address] ECRCL 159.34 ml/min Normal 50-250 [facility] Comment on above: Performed By: #### L 500.2500, L700.8000, L100.0100 ####[facility] [address] [place], [address] GAP 11 Normal 5-15 [facility] Comment on above: Performed By: #### L 500.2500, L700.8000, L100.0100 ####[facility] [address] [place], [address] GFR/1.73 sq M.predicted among non-blacks MDRD (S/P/Bld) [Vol rate/Area] 120 mL/min/{1.73_m2} Normal >60 [facility] Comment on above: Result Comment: mL/m in/1.73m2 CKD-EPI Creatinine Equation (2020) Performed By: #### L 500.2500, L700.8000, L100.0100 ####[facility] [address] [place], [address] Glucose [Mass/Vol] 126 mg/dL High 70-99 [facility] Comment on above: Performed By: #### L 500.2500, L700.8000, L100.0100 ####[facility] [address] [place], [address] Potassium [Moles/Vol] 4.3 mmol/L Normal 3.3-5.1 [facility] Comment on above: Result Comment: Hemo lysis present, Results??could be affected. ?? Performed By: #### L 500.2500, L700.8000, L100.0100 ####[facility] [address] [place], [address] Sodium [Moles/Vol] 136 mmol/L Normal 133-145 [facility] Comment on above: Performed By: #### L 500.2500, L700.8000, L100.0100 ####[facility] [address] [place], [address] Urea nitrogen [Mass/Vol] 9 mg/dL Normal 4-19 [facility] Comment on above: Performed By: #### L 500.2500, L700.8000, L100.0100 ####[facility] [address] [place], [address] Basophil percentageOrdered B y: Ludwig Aranda on 05-03-2025 Basophils/100 WBC (Bld) 0.4 % 0-1 [facility] Bilirubin Test strip Ql (U)O rdered By: Ludwig Aranda on 05-03-2025 Bilirubin Ql (U) Negative Negative [facility] Brain/Head without Contrasto n 05-03-2025 Brain/Head without Contrast [facility] Imaging Services [address] [place] [address] Brain/Head without Contrast MR#: [id number] Acct: [id number] Name: BETSY MESA Rep #: [id number] : 1995 F 30 From: Julio Cesar Verdugo MD PCP: ARLINE CORADO Status: REG ER Study: Brain/Head without Contrast Date of Exam: 12/21 Exam# [id number] Ordering Dr: Ludwig Aranda DO PROCEDURE: BRAIN/HEAD [...] No acute intracranial CT abnormality. Reading Location: [facility] CC: Dr. Ludwig Aranda DO; ARLINE CORADO Lay Out Maker: Signed Normal [facility] CBC W/Diff, Automatedon 10-0 Absolute Lymph 2.84 X10 3/uL Normal 0.83-4.51 [facility] Comment on above: Performed By: #### L 500.2500, L700.8000, L100.0100 ####[facility] [address] [place], [address] Absolute Neut 4.8 X10 3/uL Normal 2.0-7.7 [facility] Comment on above: Performed By: #### L 500.2500, L700.8000, L100.0100 ####[facility] [address] [place], [address] Basophils/100 WBC (Bld) 0.4 % Normal 0-1 [facility] Comment on above: Performed By: #### L 500.2500, L700.8000, L100.0100 ####[facility] [address] [place], [address] Eosinophils/100 WBC (Bld) 1.8 % Normal 0-5 [facility] Comment on above: Performed By: #### L 500.2500, L700.8000, L100.0100 ####[facility] [address] [place], [address] Erythrocyte distribution width (RBC) [Ratio] 15.6 % High 11.6-14.6 [facility] Comment on above: Performed By: #### L 500.2500, L700.8000, L100.0100 ####[facility] [address] [place], [address] Hematocrit (Bld) [Volume fraction] 35.4 % Low 37-47 [facility] Comment on above: Performed By: #### L 500.2500, L700.8000, L100.0100 ####[facility] [address] [place], [address] Hemoglobin (Bld) [Mass/Vol] 11.7 g/dL Low 12.0-15.0 [facility] Comment on above: Performed By: #### L 500.2500, L700.8000, L100.0100 ####[facility] [address] [place], [address] IG% 0.200 Normal 0.0-0.9 [facility] Comment on above: Result Comment: IG% - Immature Granulocytes (promyelocytes, myelocytes and metamyelocytes) > 1% indicates that a LEFT SHIFT is Present. Performed By: #### L 500.2500, L700.8000, L100.0100 ####[facility] [address] [place], [address] Lymphocytes/100 WBC (Bld) 34.3 % Normal 19-41 [facility] Comment on above: Performed By: #### L 500.2500, L700.8000, L100.0100 ####[facility] [address] [place], [address] MCH (RBC) [Entitic mass] 28.5 pg Normal 27.0-32.0 [facility] Comment on above: Performed By: #### L 500.2500, L700.8000, L100.0100 ####[facility] [address] [place], [address] MCHC (RBC) [Mass/Vol] 33.1 g/dL Normal 32-36 [facility] Comment on above: Performed By: #### L 500.2500, L700.8000, L100.0100 ####[facility] [address] [place], [address] MCV (RBC) [Entitic vol] 86.3 fL Normal 81-99 [facility] Comment on above: Performed By: #### L 500.2500, L700.8000, L100.0100 ####[facility] [address] [place], [address] Monocytes/100 WBC (Bld) 5.6 % Normal 0-10 [facility] Comment on above: Performed By: #### L 500.2500, L700.8000, L100.0100 ####[facility] [address] [place], [address] Neutrophils/100 WBC (Bld) 57.7 % Normal 47-70 [facility] Comment on above: Performed By: #### L 500.2500, L700.8000, L100.0100 ####[facility] [address] [place], [address] Nucleated RBC (Bld) [#/Vol] 0 10*3/uL Normal 0-5 [facility] Comment on above: Performed By: #### L 500.2500, L700.8000, L100.0100 ####[facility] [address] [place], [address] Platelet mean volume (Bld) [Entitic vol] 10.6 fL Normal 6.2-12.0 [facility] Comment on above: Performed By: #### L 500.2500, L700.8000, L100.0100 ####[facility] [address] [place], [address] Platelets (Bld) [#/Vol] 169 10*3/uL Normal 150-450 [facility] Comment on above: Performed By: #### L 500.2500, L700.8000, L100.0100 ####[facility] [address] [place], [address] RBC (Bld) [#/Vol] 4.10 10*6/uL Low 4.2-5.4 [facility] Comment on above: Performed By: #### L 500.2500, L700.8000, L100.0100 ####[facility] [address] [place], [address] RDW SD 49.6 fl High 35.1-43.9 [facility] Comment on above: Performed By: #### L 500.2500, L700.8000, L100.0100 ####[facility] [address] [place], [address] WBC (Bld) [#/Vol] 8.3 10*3/uL Normal 4.4-11.0 [facility] Comment on above: Performed By: #### L 500.2500, L700.8000, L100.0100 ####[facility] [address] [place], [address] Carbon dioxide, total [Moles /volume] in Central venous bloodOrdered By: Ludwig Aranda on 05-03-2025 CO2 [Moles/Vol] 21.7 mmol/L 21.0-32.0 [facility] Chloride assayOrdered By: Carlos Aranda on 05-03-2025 Chloride [Moles/Vol] 104 mmol/L 98-108 [facility] Emergency Department Summary on 05-03-2025 Emergency Department Summary [facility] Medical Records Department [address] [place] [address] Emergency Department Summary 05/03/25 MR#: [id number] Acct: [id number] Name: BETSY MESA Rep #: [id number] : 1995 30 From: Ludwig Aranda DO [...] lower uter (more content not included)... Normal [facility] Eosinophil percentageOrdered By: Ludwig Aranda on 05-03-2025 Eosinophils/100 WBC (Bld) 1.8 % 0-5 [facility] Erythrocyte distribution wid th ratioOrdered By: Earlton Manoj on 05-03-2025 Erythrocyte distribution width (RBC) [Ratio] 15.6 % High 11.6-14.6 [facility] Erythrocyte distribution wid th standard deviationOrdered By: Earlton Angie Gustafson on 05-03-2025 Erythrocyte distribution width (RBC) [Ratio] 49.6 fl High 35.1-43.9 [facility] Glomerular filtration rate ( GFR) estimation/1.73 sq m using serum, plasma, or whole bOrdered By: Ludwig Aranda on 05-03-2025 GFR/1.73 sq M.predicted among non-blacks MDRD (S/P/Bld) [Vol rate/Area] 120 mL/min/{1.73_m2} >60 [facility] Comment on above: mL/min/1.73m2 CKD-EP I Creatinine Equation (2020) Hematocrit Auto (Bld) [Volum e fraction]Ordered By: Ludwig Aranda on 05-03-2025 Hematocrit (Bld) [Volume fraction] 35.4 % Low 37-47 [facility] Hemoglobin measurementOrdere d By: Ludwig Aranda on 05-03-2025 Hemoglobin (Bld) [Mass/Vol] 11.7 g/dL Low 12.0-15.0 [facility] Immature granulocytes/100 WB C Auto (Bld)Ordered By: Ludwig Aranda on 05-03-2025 Immature granulocytes/100 WBC (Bld) 0.200 % 0.0-0.9 [facility] Comment on above: IG% - Immature Granu locytes (promyelocytes, myelocytes and metamyelocytes) > 1% indicates that a LEFT SHIFT is Present. Ketones Test strip Ql (U)Ord ered By: Ludwig Aranda on 05-03-2025 Ketones Ql (U) Negative Negative [facility] MCV (mean corpuscular volume ) determinationOrdered By: Ludwig Aranda on 05-03-2025 MCV (RBC) [Entitic vol] 86.3 fL 81-99 [facility] Mean corpuscular hemoglobin (MCH) determinationOrdered By: Ludwig Aranda on 05-03-2025 MCH (RBC) [Entitic mass] 28.5 pg 27.0-32.0 [facility] Mean corpuscular hemoglobin concentration (MCHC) determinationOrdered By: Ludwig Aranda on 05-03-2025 MCHC (RBC) [Mass/Vol] 33.1 g/dL 32-36 [facility] Mean platelet volume determi nationOrdered By: Ludwig Aranda on 05-03-2025 Platelet mean volume (Bld) [Entitic vol] 10.6 fL 6.2-12.0 [facility] Microscopic analysis of urin e for red blood cells (RBC)Ordered By: Ludwig Aranda on 05-03-2025 Microscopic analysis of urine for red blood cells (RBC) 0-5 SEEN /hpf 0-5 [facility] Monocyte percentageOrdered B y: Ludwig Aranda on 05-03-2025 Monocytes/100 WBC (Bld) 5.6 % 0-10 [facility] Mucus LM Ql (Urine sed)Order ed By: Ludwig Aranda on 05-03-2025 Mucus Ql (Urine sed) 0 SEEN /hpf [facility] Neutrophil percentageOrdered By: Ludwig Aranda on 05-03-2025 Neutrophils/100 WBC (Bld) 57.7 % 47-70 [facility] Nitrite Test strip Ql (U)Ord ered By: Ludwig Aranda on 05-03-2025 Nitrite Ql (U) Negative Negative [facility] Nucleated red blood cell per centageOrdered By: Ludwig Aranda on 05-03-2025 Nucleated RBC/100 WBC (Bld) [Ratio] 0 % 0-5 [facility] Platelet countOrdered By: Carlos Aranda on 05-03-2025 Platelets (Bld) [#/Vol] 169 10*3/uL 150-450 [facility] Potassium measurement (mass/ volume)Ordered By: Ludwig Aranda on 05-03-2025 Potassium (Unsp spec) [Mass/Vol] 4.3 mmol/L 3.3-5.1 [facility] Comment on above: Hemolysis present, R esults could be affected. Protein Test strip Ql (U)Ord ered By: Ludwig Aranda on 05-03-2025 Protein Ql (U) 30 mg/dl High Negative [facility] RBC Auto (Bld) [#/Vol]Ordere d By: Ludwig Aranda on 05-03-2025 RBC (Bld) [#/Vol] 4.10 10*6/uL Low 4.2-5.4 [facility] Serum creatinine measurement (mass/volume)Ordered By: Ludwig Aranda on 05-03-2025 Creatinine [Mass/Vol] 0.69 mg/dL Low 0.70-1.20 [facility] Serum glucose measurement (m ass/volume)Ordered By: Ludwig Aranda on 05-03-2025 Glucose [Mass/Vol] 126 mg/dL High 70-99 [facility] Serum human chorionic gonado tropin detection for pregnancyOrdered By: Ludwig Aranda on 05-03-2025 HCG ( test) [place]l [address] mIU/mL High <9 [facility] Comment on above: Gestational Age0.2-1 Week: 5-50 mIU/mL1-2 Weeks: 50-500 mIU/mL2-3 Weeks: 100-5000 mIU/mL3-4 Weeks: 500-10,000 mIU/mL4-5 Weeks:1000-50,000 mIU/mL5-6 Weeks: 10,000-100,000 mIU/mL6-8 Weeks: 15,000-200,000 mIU/mL2-3 Months:10,000-100,000 mIU/mL Serum or plasma calcium jelani urement (mass/volume)Ordered By: Ludwig callie Janay on 05-03-2025 Calcium [Mass/Vol] 9.6 mg/dL 7.6-11.0 [facility] Serum or plasma urea nitroge n measurement (mass/volume)Ordered By: Ludwig Aranda on 05-03-2025 Urea nitrogen [Mass/Vol] 9 mg/dL 4-19 [facility] Sodium levelOrdered By: Manjit AdamsJanay on 05-03-2025 Sodium [Moles/Vol] 136 mmol/L 133-145 [facility] Squamous epithelial cells de tection in urine sediment by light microscopyOrdered By: Ludwig Aranda on 05-03-2025 Epithelial cells.squamous LM Ql (Urine sed) 10-25 SEEN /hpf 5-10 [facility] Transitional cells detection in urine sediment by light microscopyOrdered By: Ludwig Aranda on 05-03-2025 Transitional cells LM Ql (Urine sed) 0-5 SEEN /hpf 0-5 [facility] Transvaginal w/Preg USon Transvaginal w/Preg US [facility] Imaging Services [address] [place], [place] [id number] Transvaginal w/Preg MR#: [id number] Acct: [id number] Name: BETSY MESA Rep #: [id number] : 1995 F 30 From: Julio Cesar Verdugo MD PCP: ARLINE CORADO Status: REG ER Study: Transvaginal w/Preg US Date of Exam: 05/03/25 Exam# [id number] Ordering Dr: Ludwig Aranda DO PROCEDURE: TRANSVAGINAL [...] be paid on follow-up imaging. Reading Location: [id number] CC: Dr. Ludwig Aranda DO; ARLINE CORADO Lay Out Maker: Signed Normal [facility] Urinalysis, Completeon 05-03 BACTERIA 1+ /hpf Normal None Seen [facility] Comment on above: Order Comment: CLEAN CATCH Performed By: #### L 400.0001 #### [facility] Laboratory [address] [place], [address] EPI,SQUAMOUS 10-25 SEEN Normal 5-10 [facility] Comment on above: Order Comment: CLEAN CATCH Performed By: #### L 400.0001 #### [facility] [address] [place], [address] EPI,TRANSITION 0-5 SEEN Normal 0-5 [facility] Comment on above: Order Comment: CLEAN CATCH Performed By: #### L 400.0001 #### [facility] [address] [place], [address] RBC 0-5 SEEN Normal 0-5 [facility] Comment on above: Order Comment: CLEAN CATCH Performed By: #### L 400.0001 #### [facility] [address] [place], [address] WBC 10-25 SEEN Normal 0-5 [facility] Comment on above: Order Comment: CLEAN CATCH Performed By: #### L 400.0001 #### [facility] [address] [place], [address] Mucus Ql (Urine sed) 0 SEEN Normal [facility] Comment on above: Order Comment: CLEAN CATCH Performed By: #### L 400.0001 #### [facility] [address] [place], [address] Urine clarityOrdered By: Pavan Aranda on 05-03-2025 Clarity (U) Clear Clear [facility] Urine color determinationOrd ered By: Ludwig Aranda on 05-03-2025 Color (U) Yellow Yellow [facility] Urine glucose detectionOrder ed By: Ludwig Aranda on 05-03-2025 Glucose Ql (U) Normal mg/dl Normal [facility] Urine leukocyte esterase det ection by dipstickOrdered By: Ludwig Aranda on 05-03-2025 Leukocyte esterase Test strip Ql (U) 25 /ul High Negative [facility] Urine pHOrdered By: Ludwig Godinez on 05-03-2025 pH (U) 6.0 [pH] 5.0 - 8.0 [facility] Urine sediment bacteria coun t by microscopy (number/high power field)Ordered By: Ludwig Aranda on 05-03-2025 Bacteria LM.HPF (Urine sed) [#/Area] 1 /[HPF] None Seen [facility] Urine specific gravity measu rementOrdered By: Ludwig Aranda on 05-03-2025 Specific gravity (U) [Rel density] 1.025 1.002-1.030 [facility] Urine urobilinogen measureme ntOrdered By: Ludwig Aranda on 05-03-2025 Urobilinogen Ql (U) Normal mg/dl Normal [facility] White blood cell (WBC) count Ordered By: Ludwig rAanda on 05-03-2025 WBC (Bld) [#/Vol] 8.3 10*3/uL 4.4-11.0 [facility] White blood cell countOrdere d By: Ludwig Aranda on 05-03-2025 White blood cell count 10-25 SEEN /hpf 0-5 [facility] hCG Titer Quant., Serumon HCG QUANT. 41268 mIU/mL High <9 non-preg [facility] Comment on above: Result Comment: Gest ational Age 0.2-1 Week: 5-50 mIU/mL 1-2 Weeks: 50-500 mIU/mL 2-3 Weeks: 100-5000 mIU/mL 3-4 Weeks: 500-10,000 mIU/mL 4-5 Weeks:1000-50,000 mIU/mL 5-6 Weeks: 10,000-100,000 mIU/mL 6-8 Weeks: 15,000-200,000 mIU/mL 2-3 Months:10,000-100,000 mIU/mL Performed By: #### L 500.2500, L700.8000, L100.0100 ####[facility] [address] [place], [address] .Auto Diffon 04-17-2025 Basophil, Absolute 0.0 10 3/mcL Normal 0.0-0.3 [facility] Comment on above: Performed By: #### T SH, CBC, FERR, FE, PREGS, ADIFF, ANEU #### [address] [address] Lymphocyte, Absolute 2.9 10 3/mcL Normal 0.9-4.3 [facility] Comment on above: Performed By: #### T SH, CBC, FERR, FE, PREGS, ADIFF, ANEU #### [address] [address] Monocyte, Absolute 0.4 10 3/mcL Normal 0.1-1.4 [facility] Comment on above: Performed By: #### T SH, CBC, FERR, FE, PREGS, ADIFF, ANEU #### [address] [address] .Auto DiffOrdered By: SYSTEM SYSTEM on 04-17-2025 Basophils/100 WBC (Bld) 0.3 % Normal 0.0-2.5 [facility] Comment on above: Performed By: #### T SH, CBC, FERR, FE, PREGS, ADIFF, ANEU #### [address] [address] Eosinophil, Absolute 0.1 103/mcL Normal 0.0-0.7 [facility] Comment on above: Performed By: #### T SH, CBC, FERR, FE, PREGS, ADIFF, ANEU #### [address] [address] Eosinophils/100 WBC (Bld) 1.4 % Normal 0.0-6.0 [facility] Comment on above: Performed By: #### T SH, CBC, FERR, FE, PREGS, ADIFF, ANEU #### [address] [address] Lymphocytes/100 WBC (Bld) 36.7 % Normal 20.0-40.0 [facility] Comment on above: Performed By: #### T SH, CBC, FERR, FE, PREGS, ADIFF, ANEU #### [address] [address] Monocytes/100 WBC (Bld) 5.4 % Normal 2.0-13.0 [facility] Comment on above: Performed By: #### T SH, CBC, FERR, FE, PREGS, ADIFF, ANEU #### [address] [address] Neutrophils/100 WBC (Bld) 56.2 % Normal 50.0-75.0 AO Workflow SS Comment on above: Performed By: #### T SH, CBC, FERR, FE, PREGS, ADIFF, ANEU #### [address] [address] .NEUABSon 04-17-2025 Neutrophil, Absolute 4.5 10 3/mcL Normal 2.3-8.1 [facility] Comment on above: Performed By: #### T SH, CBC, FERR, FE, PREGS, ADIFF, ANEU #### [address] [address] CBCOrdered By: SYSTEM SYSTEM on 04-17-2025 Erythrocyte distribution width (RBC) [Ratio] 16.6 % High 11.5-15.5 AO Workflow SS Comment on above: Performed By: #### T SH, CBC, FERR, FE, PREGS, ADIFF, ANEU #### [address] [address] Hematocrit (Bld) [Volume fraction] 36.9 % Normal 34.0-46.0 AO Workflow SS Comment on above: Performed By: #### T SH, CBC, FERR, FE, PREGS, ADIFF, ANEU #### [address] [address] MCH (RBC) [Entitic mass] 28.3 pg Normal 27.0-33.0 AO Workflow SS Comment on above: Performed By: #### T SH, CBC, FERR, FE, PREGS, ADIFF, ANEU #### [address] [address] MCHC 33.6 G/dL Normal 32.0-36.0 AO Workflow SS Comment on above: Performed By: #### T SH, CBC, FERR, FE, PREGS, ADIFF, ANEU #### [address] [address] MCV (RBC) [Entitic vol] 84.0 fL Normal 80.0-99.0 AO Workflow SS Comment on above: Performed By: #### T SH, CBC, FERR, FE, PREGS, ADIFF, ANEU #### [address] [address] Platelet mean volume (Bld) [Entitic vol] 9.0 fL Normal 6.6-10.5 AO Workflow SS Comment on above: Performed By: #### T SH, CBC, FERR, FE, PREGS, ADIFF, ANEU #### [address] [address] CBCon 04-17-2025 Hgb 12.4 G/dL Normal 12.0-16.0 [facility] Comment on above: Performed By: #### T SH, CBC, FERR, FE, PREGS, ADIFF, ANEU #### [address] [address] Platelet 189 10 3/mcL Normal 150-450 [facility] Comment on above: Performed By: #### T SH, CBC, FERR, FE, PREGS, ADIFF, ANEU #### [address] [address] RBC 4.40 10 6/mcL Normal 4.10-5.30 [facility] Comment on above: Performed By: #### T SH, CBC, FERR, FE, PREGS, ADIFF, ANEU #### [address] [address] WBC 8.0 10 3/mcL Normal 4.5-10.8 [facility] Comment on above: Performed By: #### T SH, CBC, FERR, FE, PREGS, ADIFF, ANEU #### [address] [address] FEOrdered By: SYSTEM SYSTEM on 04-17-2025 Iron [Mass/Vol] 94 ug/dL Normal 50-170 AO ADM SS Comment on above: Performed By: #### H CGQ #### Zaheer [address] [address] FERROrdered By: SYSTEM SYSTE M on 04-17-2025 Ferritin [Mass/Vol] 21.0 ng/mL Normal 8.0-252.0 AO AD M SS Comment on above: Performed By: #### H CGQ #### Zaheer [address] [address] LABORATORYOrdered By: SYSTEM SYSTEM on 04-17-2025 Basophils [...] SS PREGSon 04-17-2025 test (s) Positive Normal [facility] Comment on above: Performed By: #### H CGQ #### Zaheer [address] [address] PREGSOrdered By: Vinod johnson on 04-17-2025 test (s) int Detected Invalid Interpretation Code AO Rapid Testing SS Comment on above: Performed By: #### H CGQ #### Zaheer [address] [place], [place] [address] TSHOrdered By: SYSTEM SYSTEM on 04-17-2025 TSH Qn 0.67 m[IU]/L Normal 0.36-3.74 AO ADM SS Comment on above: Performed By: #### H CGQ #### Zaheer [address] [place], [place] [address] Basic Metabolic Profile (BMP )on 03-23-2025 BUN/CRE 11.9 RATIO Normal 10-20 [facility] Comment on above: Performed By: #### L 500.2500, L100.0100, L501.5200, L700.6800 ####[facility] [address] [place], [address] Calcium [Mass/Vol] 9.0 mg/dL Normal 7.6-11.0 [facility] Comment on above: Performed By: #### L 500.2500, L100.0100, L501.5200, L700.6800 ####[facility] [address] [place], [address] Chloride [Moles/Vol] 105 mmol/L Normal 98-108 [facility] Comment on above: Performed By: #### L 500.2500, L100.0100, L501.5200, L700.6800 ####[facility] [address] [place], [address] CO2 [Moles/Vol] 23.8 mmol/L Normal 21.0-32.0 [facility] Comment on above: Performed By: #### L 500.2500, L100.0100, L501.5200, L700.6800 ####[facility] [address] [place], [address] Creatinine [Mass/Vol] 0.79 mg/dL Normal 0.70-1.20 [facility] Comment on above: Performed By: #### L 500.2500, L100.0100, L501.5200, L700.6800 ####[facility] [address] [place], [address] ECRCL 138.70 ml/min Normal 50-250 [facility] Comment on above: Performed By: #### L 500.2500, L100.0100, L501.5200, L700.6800 ####[facility] [address] [place], [address] GAP 11 Normal 5-15 [facility] Comment on above: Performed By: #### L 500.2500, L100.0100, L501.5200, L700.6800 ####[facility] [address] [place], [address] GFR/1.73 sq M.predicted among non-blacks MDRD (S/P/Bld) [Vol rate/Area] 103 mL/min/{1.73_m2} Normal >60 [facility] Comment on above: Result Comment: mL/m in/1.73m2 CKD-EPI Creatinine Equation (2020) Performed By: #### L 500.2500, L100.0100, L501.5200, L700.6800 ####[facility] [address] [place], [address] Glucose [Mass/Vol] 136 mg/dL High 70-99 [facility] Comment on above: Performed By: #### L 500.2500, L100.0100, L501.5200, L700.6800 ####[facility] [address] [place], [address] Potassium [Moles/Vol] 3.5 mmol/L Normal 3.3-5.1 [facility] Comment on above: Performed By: #### L 500.2500, L100.0100, L501.5200, L700.6800 ####[facility] [address] [place], [address] Sodium [Moles/Vol] 139 mmol/L Normal 133-145 [facility] Comment on above: Performed By: #### L 500.2500, L100.0100, L501.5200, L700.6800 ####[facility] [address] [place], [address] Urea nitrogen [Mass/Vol] 9 mg/dL Normal 4-19 [facility] Comment on above: Performed By: #### L 500.2500, L100.0100, L501.5200, L700.6800 ####[facility] [address] [place], [address] CBC W/Diff, Automatedon 08-2 5-2024 Absolute Lymph 3.11 X10 3/uL Normal 0.83-4.51 [facility] Comment on above: Performed By: #### L 500.2500, L100.0100, L501.5200, L700.6800 ####[facility] [address] [place], [address] Absolute Neut 3.5 X10 3/uL Normal 2.0-7.7 [facility] Comment on above: Performed By: #### L 500.2500, L100.0100, L501.5200, L700.6800 ####[facility] [address] [place], [address] Basophils/100 WBC (Bld) 0.5 % Normal 0-1 [facility] Comment on above: Performed By: #### L 500.2500, L100.0100, L501.5200, L700.6800 ####[facility] [address] [place], [address] Eosinophils/100 WBC (Bld) 2.6 % Normal 0-5 [facility] Comment on above: Performed By: #### L 500.2500, L100.0100, L501.5200, L700.6800 ####[facility] [address] [place], [address] Erythrocyte distribution width (RBC) [Ratio] 15.2 % High 11.6-14.6 [facility] Comment on above: Performed By: #### L 500.2500, L100.0100, L501.5200, L700.6800 ####[facility] [address] [place], [address] Hematocrit (Bld) [Volume fraction] 33.4 % Low 37-47 [facility] Comment on above: Performed By: #### L 500.2500, L100.0100, L501.5200, L700.6800 ####[facility] [address] [place], [address] Hemoglobin (Bld) [Mass/Vol] 11.1 g/dL Low 12.0-15.0 [facility] Comment on above: Performed By: #### L 500.2500, L100.0100, L501.5200, L700.6800 ####[facility] [address] [place], [address] IG% 0.100 Normal 0.0-0.9 [facility] Comment on above: Result Comment: IG% - Immature Granulocytes (promyelocytes, myelocytes and metamyelocytes) > 1% indicates that a LEFT SHIFT is Present. Performed By: #### L 500.2500, L100.0100, L501.5200, L700.6800 ####[facility] [address] [place], [address] Lymphocytes/100 WBC (Bld) 42.1 % High 19-41 [facility] Comment on above: Performed By: #### L 500.2500, L100.0100, L501.5200, L700.6800 ####[facility] [address] [place], [address] MCH (RBC) [Entitic mass] 28.2 pg Normal 27.0-32.0 [facility] Comment on above: Performed By: #### L 500.2500, L100.0100, L501.5200, L700.6800 ####[facility] [address] [place], [address] MCHC (RBC) [Mass/Vol] 33.2 g/dL Normal 32-36 [facility] Comment on above: Performed By: #### L 500.2500, L100.0100, L501.5200, L700.6800 ####[facility] [address] [place], [address] MCV (RBC) [Entitic vol] 85.0 fL Normal 81-99 [facility] Comment on above: Performed By: #### L 500.2500, L100.0100, L501.5200, L700.6800 ####[facility] [address] [place], [address] Monocytes/100 WBC (Bld) 6.6 % Normal 0-10 [facility] Comment on above: Performed By: #### L 500.2500, L100.0100, L501.5200, L700.6800 ####[facility] [address] [place], [address] Neutrophils/100 WBC (Bld) 48.1 % Normal 47-70 [facility] Comment on above: Performed By: #### L 500.2500, L100.0100, L501.5200, L700.6800 ####[facility] [address] [place], [address] Nucleated RBC (Bld) [#/Vol] 0 10*3/uL Normal 0-5 [facility] Comment on above: Performed By: #### L 500.2500, L100.0100, L501.5200, L700.6800 ####[facility] [address] [place], [address] Platelet mean volume (Bld) [Entitic vol] 11.4 fL Normal 6.2-12.0 [facility] Comment on above: Performed By: #### L 500.2500, L100.0100, L501.5200, L700.6800 ####[facility] [address] [place], [address] Platelets (Bld) [#/Vol] 210 10*3/uL Normal 150-450 [facility] Comment on above: Performed By: #### L 500.2500, L100.0100, L501.5200, L700.6800 ####[facility] [address] [place], [address] RBC (Bld) [#/Vol] 3.93 10*6/uL Low 4.2-5.4 [facility] Comment on above: Performed By: #### L 500.2500, L100.0100, L501.5200, L700.6800 ####[facility] [address] [place], [address] RDW SD 47.3 fl High 35.1-43.9 [facility] Comment on above: Performed By: #### L 500.2500, L100.0100, L501.5200, L700.6800 ####[facility] [address] [place], [address] WBC (Bld) [#/Vol] 7.4 10*3/uL Normal 4.4-11.0 [facility] Comment on above: Performed By: #### L 500.2500, L100.0100, L501.5200, L700.6800 ####[facility] [address] [place], [address] Emergency Department Summary on 03-23-2025 Emergency Department Summary [facility] Medical Records Department [address] [place] [address] Emergency Department Summary 03/23/25 MR#: [id number] Acct: [id number] Name: BETSY MESA Rep #: [id number] : 1995 30 From: Nelson Ulloa DO [...] or secondary infection she presents for evaluation [facility] Medical History Anxiety Paresthesias Cervical radiculopathy Cervicalgia [...] drift no (more content not included)... Normal [facility] Magnesiumon 03-23-2025 Magnesium [Mass/Vol] 2.1 mg/dL Normal 1.5-2.2 [facility] Comment on above: Performed By: #### L 500.2500, L100.0100, L501.5200, L700.6800 ####[facility] [address] [place], [place], [address] ,Serum,hCG Quali.on 03-23-2025 HCG, SERUM QUAL Negative Normal [facility] Comment on above: Performed By: #### L 500.2500, L100.0100, L501.5200, L700.6800 ####[facility] [address] [place], [place], [address] Absolute lymphocyte countOrd ered By: Nelson Ulloa on 03-22-2025 Lymphocytes Auto (Unsp spec) [#/Vol] 3.11 10*3/uL 0.83-4.51 [facility] Absolute neutrophil countOrd ered By: Nelson Ulloa on 03-22-2025 Neutrophils (Bld) [#/Vol] 3.5 10*3/uL 2.0-7.7 [facility] Anion gap in Serum or Plasma Ordered By: Nelson Ulloa on 03-22-2025 Anion gap [Moles/Vol] 11 mmol/L 5-15 [facility] Automated lymphocyte count a s percentage of total leukocytesOrdered By: Nelson Ulloa on 03-22-2025 Lymphocytes/100 WBC Auto (Unsp spec) 42.1 % High 19-41 [facility] BUN/creatinine ratioOrdered By: Nelson Ulloa on 03-22-2025 Urea nitrogen/Creatinine [Mass ratio] 11.9 mg/mg 10-20 [facility] Basophil percentageOrdered B y: Nelson Ulloa on 03-22-2025 Basophils/100 WBC (Bld) 0.5 % 0-1 [facility] Carbon dioxide, total [Moles /volume] in Central venous bloodOrdered By: Nelson Ulloa on 03-22-2025 CO2 [Moles/Vol] 23.8 mmol/L 21.0-32.0 [facility] Chloride assayOrdered By: Maranda Ulloa on 03-22-2025 Chloride [Moles/Vol] 105 mmol/L 98-108 [facility] Eosinophil percentageOrdered By: Nelson Ulloa on 03-22-2025 Eosinophils/100 WBC (Bld) 2.6 % 0-5 [facility] Erythrocyte distribution wid th ratioOrdered By: Nelson Ulloa on 03-22-2025 Erythrocyte distribution width (RBC) [Ratio] 15.2 % High 11.6-14.6 [facility] Erythrocyte distribution wid th standard deviationOrdered By: Nelson Ulloa on 03-22-2025 Erythrocyte distribution width (RBC) [Ratio] 47.3 fl High 35.1-43.9 [facility] Glomerular filtration rate ( GFR) estimation/1.73 sq m using serum, plasma, or whole bOrdered By: Nelson Ulloa on 03-22-2025 GFR/1.73 sq M.predicted among non-blacks MDRD (S/P/Bld) [Vol rate/Area] 103 mL/min/{1.73_m2} >60 [facility] Comment on above: mL/min/1.73m2 CKD-EP I Creatinine Equation (2020) Hematocrit Auto (Bld) [Volum e fraction]Ordered By: Nelson Ulloa on 03-22-2025 Hematocrit (Bld) [Volume fraction] 33.4 % Low 37-47 [facility] Hemoglobin measurementOrdere d By: Nelson Ulloa on 03-22-2025 Hemoglobin (Bld) [Mass/Vol] 11.1 g/dL Low 12.0-15.0 [facility] Immature granulocytes/100 WB C Auto (Bld)Ordered By: Nelson Ulloa on 03-22-2025 Immature granulocytes/100 WBC (Bld) 0.100 % 0.0-0.9 [facility] Comment on above: IG% - Immature Granu locytes (promyelocytes, myelocytes and metamyelocytes) > 1% indicates that a LEFT SHIFT is Present. MCV (mean corpuscular volume ) determinationOrdered By: Nelson Ulloa on 03-22-2025 MCV (RBC) [Entitic vol] 85.0 fL 81-99 [facility] Magnesium measurement (mass/ volume)Ordered By: Nelson Ulloa on 03-22-2025 Magnesium (Unsp spec) [Mass/Vol] 2.1 mg/dL 1.5-2.2 [facility] Mean corpuscular hemoglobin (MCH) determinationOrdered By: Nelson Ulloa on 03-22-2025 MCH (RBC) [Entitic mass] 28.2 pg 27.0-32.0 [facility] Mean corpuscular hemoglobin concentration (MCHC) determinationOrdered By: Nelson Ulloa on 03-22-2025 MCHC (RBC) [Mass/Vol] 33.2 g/dL 32-36 [facility] Mean platelet volume determi nationOrdered By: Nelson Ulloa on 03-22-2025 Platelet mean volume (Bld) [Entitic vol] 11.4 fL 6.2-12.0 [facility] Monocyte percentageOrdered B y: Nelson Ulloa on 03-22-2025 Monocytes/100 WBC (Bld) 6.6 % 0-10 [facility] Neutrophil percentageOrdered By: Nelson Ulloa on 03-22-2025 Neutrophils/100 WBC (Bld) 48.1 % 47-70 [facility] Nucleated red blood cell per centageOrdered By: Nelson Ulloa on 03-22-2025 Nucleated RBC/100 WBC (Bld) [Ratio] 0 % 0-5 [facility] PREGUon 03-22-2025 HCG ( test) Ql (U) Negative Normal [facility] Comment on above: Performed By: #### F E, A1C, ANEU, FT3, FT4, CMP, GFR, ADIFF, FERR, TSH, CBC #### [facility] [address] [place], [place] [address] test (u) int Invalid Interpretation Code [facility] Comment on above: Result Comment: HCG not detected. Very dilute urine specimens, as indicated by a low specific gravity, may not contain fulfillment representative levels of hCG. If is still suspected, a first morning urine specimen should be collected 48 hours later and tested. Performed By: #### F E, A1C, ANEU, FT3, FT4, CMP, GFR, ADIFF, FERR, TSH, CBC #### [facility] [address] [place], [place] [address] Platelet countOrdered By: Maranda Ulloa on 03-22-2025 Platelets (Bld) [#/Vol] 210 10*3/uL 150-450 [facility] Potassium measurement (mass/ volume)Ordered By: Nelson Ulloa on 03-22-2025 Potassium (Unsp spec) [Mass/Vol] 3.5 mmol/L 3.3-5.1 [facility] RBC Auto (Bld) [#/Vol]Ordere d By: Nelson Ulloa on 03-22-2025 RBC (Bld) [#/Vol] 3.93 10*6/uL Low 4.2-5.4 [facility] STREPAon 03-22-2025 Group A Strep PCR Not detected Normal Not Detected [facility] Comment on above: Performed By: #### S TREPA #### [facility] [address] [place], [place] [address] Group A Strep PCR Int See Interp Normal [facility] Comment on above: Result Comment: Clinical [...] infections. Performed By: #### S REILLY #### [facility] [address] [place], [place] [address] Serum beta-hCG test, qualita tiveOrdered By: Nelson Ulloa on 03-22-2025 Beta HCG ( test) Ql Negative [facility] Serum creatinine measurement (mass/volume)Ordered By: Nelson Ulloa on 03-22-2025 Creatinine [Mass/Vol] 0.79 mg/dL 0.70-1.20 [facility] Serum glucose measurement (m ass/volume)Ordered By: Nelson Ulloa on 03-22-2025 Glucose [Mass/Vol] 136 mg/dL High 70-99 [facility] Serum or plasma calcium jelani urement (mass/volume)Ordered By: Nelson Ulloa on 03-22-2025 Calcium [Mass/Vol] 9.0 mg/dL 7.6-11.0 [facility] Serum or plasma urea nitroge n measurement (mass/volume)Ordered By: Nelson Ulloa on 03-22-2025 Urea nitrogen [Mass/Vol] 9 mg/dL 4-19 [facility] Sodium levelOrdered By: Eugene Ulloa on 03-22-2025 Sodium [Moles/Vol] 139 mmol/L 133-145 [facility] UAon 03-22-2025 Color (U) Light Yellow Normal [facility] Comment on above: Performed By: #### F E, A1C, ANEU, FT3, FT4, CMP, GFR, ADIFF, FERR, TSH, CBC #### [facility] [address] [place], [place] [address] Glucose (U) [Mass/Vol] Negative Normal Negative [facility] Comment on above: Performed By: #### F E, A1C, ANEU, FT3, FT4, CMP, GFR, ADIFF, FERR, TSH, CBC #### [facility] [address] [place], [place] [address] Ketones Ql (U) Negative Normal Neg-Trace [facility] Comment on above: Performed By: #### F E, A1C, ANEU, FT3, FT4, CMP, GFR, ADIFF, FERR, TSH, CBC #### [facility] [address] [address] UA Appear Clear Normal Clear [facility] Comment on above: Performed By: #### F E, A1C, ANEU, FT3, FT4, CMP, GFR, ADIFF, FERR, TSH, CBC #### [facility] [address] [address] UA Blood Moderate Abnormal Neg-Trace [facility] Comment on above: Performed By: #### F E, A1C, ANEU, FT3, FT4, CMP, GFR, ADIFF, FERR, TSH, CBC #### [facility] [address] [address] UA Leuk Est Trace Abnormal Negative [facility] Comment on above: Performed By: #### F E, A1C, ANEU, FT3, FT4, CMP, GFR, ADIFF, FERR, TSH, CBC #### [facility] [address] [address] UA Nitrite Negative Normal Negative [facility] Comment on above: Performed By: #### F E, A1C, ANEU, FT3, FT4, CMP, GFR, ADIFF, FERR, TSH, CBC #### [facility] [address] [place] [address] UA pH 6.5 Normal 5.0 - 8.0 [facility] Comment on above: Performed By: #### F E, A1C, ANEU, FT3, FT4, CMP, GFR, ADIFF, FERR, TSH, CBC #### [facility] [address] [place] [address] UA Protein Negative Normal Negative [facility] Comment on above: Performed By: #### F E, A1C, ANEU, FT3, FT4, CMP, GFR, ADIFF, FERR, TSH, CBC #### [facility] [address] [place] [address] UA Spec Grav 1.025 Normal 1.006-1.029 [facility] Comment on above: Performed By: #### F E, A1C, ANEU, FT3, FT4, CMP, GFR, ADIFF, FERR, TSH, CBC #### [facility] [address] [place] [address] UA Specimen Type Clean Catch Normal [facility] Comment on above: Performed By: #### F E, A1C, ANEU, FT3, FT4, CMP, GFR, ADIFF, FERR, TSH, CBC #### [facility] [address] [address] UA Urobilinogen 0.2 E.U./dL Normal 0.2-1.0 [facility] Comment on above: Performed By: #### F E, A1C, ANEU, FT3, FT4, CMP, GFR, ADIFF, FERR, TSH, CBC #### [facility] [address] [place] [address] Urobilinogen (U) [Mass/Vol] Negative Normal Negative [facility] Comment on above: Performed By: #### F E, A1C, ANEU, FT3, FT4, CMP, GFR, ADIFF, FERR, TSH, CBC #### [facility] [address] [place] [address] UAMICon 03-22-2025 UA Bacteria 1+ /hpf Abnormal Negative [facility] Comment on above: Performed By: #### F E, A1C, ANEU, FT3, FT4, CMP, GFR, ADIFF, FERR, TSH, CBC #### [facility] [address] [place] [address] UA Hyal Cast 0-2 Abnormal [facility] Comment on above: Performed By: #### F E, A1C, ANEU, FT3, FT4, CMP, GFR, ADIFF, FERR, TSH, CBC #### [facility] [address] [place] [address] UA Mucous 2+ /hpf Normal [facility] Comment on above: Performed By: #### F E, A1C, ANEU, FT3, FT4, CMP, GFR, ADIFF, FERR, TSH, CBC #### [facility] [address] [place] [address] UA RBC 5-10 Abnormal 0-2 [facility] Comment on above: Performed By: #### F E, A1C, ANEU, FT3, FT4, CMP, GFR, ADIFF, FERR, TSH, CBC #### [facility] [address] [place], [place] [address] UA Squam Epithelial 10-20 Normal 0-20 [facility] Comment on above: Performed By: #### F E, A1C, ANEU, FT3, FT4, CMP, GFR, ADIFF, FERR, TSH, CBC #### [facility] [address] [place], [place] [address] UA WBC 25-50 Abnormal 0-5 [facility] Comment on above: Performed By: #### F E, A1C, ANEU, FT3, FT4, CMP, GFR, ADIFF, FERR, TSH, CBC #### [facility] [address] [place], [place] [address] White blood cell (WBC) count Ordered By: Nelson Ulloa on 03-22-2025 WBC (Bld) [#/Vol] 7.4 10*3/uL 4.4-11.0 [facility] ED NOTEon 03-10-2025 ED NOTE HNO ID: [id number] Author: SERENA PARSONS RN Service: ? Author Type: Registered Nurse Type: ED Notes Filed: 03/10/2025 01:43 Note Text: Pt name called in lobby at 0055, [address] [facility] XR WRIST MINIMUM 3 VIEWS RIG [...] 02/18/2025 5:53:14 PM Ordering Provider: BERNADINE Rosario [facility] Brain/Head without Contrasto n 02-05-2025 Brain/Head without Contrast [facility] Imaging Services [address] [place] [address] Brain/Head without Contrast MR#: [id number] Acct: [id number] Name: BETSY MESA Rep #: [id number] : 1995 F 29 From: Emiliana johnson MD PCP: ARLINE CORADO Status: DEP ER Study: Brain/Head without Contrast Date of Exam: 01/27 Exam# [id number] Ordering Dr: Nelson Ulloa DO PROCEDURE: BRAIN/HEAD [...] clinical suspicion, correlate to MRI Reading [facility] CC: Nelson Ulloa DO; ARLINE CORADO Lay Out Maker: Signed Normal [facility] Emergency Department Summary on 02-05-2025 Emergency Department Summary [facility] Medical Records Department [address] [place] [address] Emergency Department Summary 02/05/25 MR#: [id number] Acct: [id number] Name: BETSY MESA Rep #: [id number] : 1995 29 From: Nelson Ulloa DO [...] she is concerned she may have a "bleed" and with this presents for evaluation [facility] Medical History Anxiety Paresthesias Cervical radiculopathy Cervicalgia [...] are stab (more content not included)... Normal [facility] Absolute lymphocyte countOrd ered By: Oseas Aviles on 01-11-2025 Lymphocytes Auto (Unsp spec) [#/Vol] 2.39 10*3/uL 0.83-4.51 [facility] Absolute neutrophil countOrd ered By: Oseas Aviles on 01-11-2025 Neutrophils (Bld) [#/Vol] 3.8 10*3/uL 2.0-7.7 [facility] Anion gap in Serum or Plasma Ordered By: Oseas Aviles on 01-11-2025 Anion gap [Moles/Vol] 10 mmol/L 12-11 [facility] Automated lymphocyte count a s percentage of total leukocytesOrdered By: Oseas Aviles on 01-11-2025 Lymphocytes/100 WBC Auto (Unsp spec) 34.7 % [facility] BUN/creatinine ratioOrdered By: Oseas Aviles on 01-11-2025 Urea nitrogen/Creatinine [Mass ratio] 14.5 mg/mg 05-18 [facility] Basic Metabolic Profile (BMP )on 01-11-2025 BUN/CRE 14.5 RATIO Normal 05-18 [facility] Comment on above: Performed By: #### L 500.2500, L100.0100 ####[facility] [address] [place], [address] Calcium [Mass/Vol] 9.3 mg/dL Normal 7.6-11.0 [facility] Comment on above: Performed By: #### L 500.2500, L100.0100 ####[facility] [address] [place], [address] Chloride [Moles/Vol] 106 mmol/L Normal 98-108 [facility] Comment on above: Performed By: #### L 500.2500, L100.0100 ####[facility] [address] [place], [address] CO2 [Moles/Vol] 22.4 mmol/L Normal 21.0-32.0 [facility] Comment on above: Performed By: #### L 500.2500, L100.0100 ####[facility] [address] [place], [address] Creatinine [Mass/Vol] 0.73 mg/dL Normal 0.70-1.20 [facility] Comment on above: Performed By: #### L 500.2500, L100.0100 ####[facility] [address] [place], [address] ECRCL 149.34 ml/min Normal 50-250 [facility] Comment on above: Performed By: #### L 500.2500, L100.0100 ####[facility] [address] [place], [address] GAP 10 Normal 5-15 [facility] Comment on above: Performed By: #### L 500.2500, L100.0100 ####[facility] [address] [place], [address] GFR/1.73 sq M.predicted among non-blacks MDRD (S/P/Bld) [Vol rate/Area] 114 mL/min/{1.73_m2} Normal >60 [facility] Comment on above: Result Comment: mL/m in/1.73m2 CKD-EPI Creatinine Equation (2020) Performed By: #### L 500.2500, L100.0100 ####[facility] [address] [place], [address] Glucose [Mass/Vol] 133 mg/dL High 70-99 [facility] Comment on above: Performed By: #### L 500.2500, L100.0100 ####[facility] [address] [place], [address] Potassium [Moles/Vol] 3.9 mmol/L Normal 3.3-5.1 [facility] Comment on above: Performed By: #### L 500.2500, L100.0100 ####[facility] [address] [place], [address] Sodium [Moles/Vol] 138 mmol/L Normal 133-145 [facility] Comment on above: Performed By: #### L 500.2500, L100.0100 ####[facility] [address] [place], [address] Urea nitrogen [Mass/Vol] 11 mg/dL Normal 4-19 [facility] Comment on above: Performed By: #### L 500.2500, L100.0100 ####[facility] [address] [place], [place], [id number] Basophil percentageOrdered B y: Oseas Aviles on 01-11-2025 Basophils/100 WBC (Bld) 0.4 % 0-1 [facility] Brain/Head without Contrasto n 01-11-2025 Brain/Head without Contrast [facility] Imaging Services [address] [place], [place] [address] Brain/Head without Contrast MR#: [id number] Acct: [id number] Name: BETSY MESA Rep #: [id number] : 1995 F 29 From: Laurita Talley PCP: Care Physician,No Primary Status: REG ER Study: Brain/Head without Contrast Date of Exam: 12/28 12/21 Exam# [id number] Ordering Dr: Oseas Aviles MD PROCEDURE: BRAIN/HEAD [...] IMPRESSION: No acute intracranial process. Reading Location: [id number] CC: Dr. Oseas Aviles MD; No Primary Care Physician Lay Out Maker: Signed Normal [facility] CBC W/Diff, Automatedon 12-28 Absolute Lymph 2.39 X10 3/uL Normal 0.83-4.51 [facility] Comment on above: Performed By: #### L 500.2500, L100.0100 ####[facility] [address] [place], [address] Absolute Neut 3.8 X10 3/uL Normal 2.0-7.7 [facility] Comment on above: Performed By: #### L 500.2500, L100.0100 ####[facility] [address] [place], [address] Basophils/100 WBC (Bld) 0.4 % Normal 0-1 [facility] Comment on above: Performed By: #### L 500.2500, L100.0100 ####[facility] [address] [place], [address] Eosinophils/100 WBC (Bld) 2.6 % Normal 0-5 [facility] Comment on above: Performed By: #### L 500.2500, L100.0100 ####[facility] [address] [place], [address] Erythrocyte distribution width (RBC) [Ratio] 14.7 % High 11.6-14.6 [facility] Comment on above: Performed By: #### L 500.2500, L100.0100 ####[facility] [address] [place], [address] Hematocrit (Bld) [Volume fraction] 34.5 % Low 37-47 [facility] Comment on above: Performed By: #### L 500.2500, L100.0100 ####[facility] [address] [place], [address] Hemoglobin (Bld) [Mass/Vol] 11.1 g/dL Low 12.0-15.0 [facility] Comment on above: Performed By: #### L 500.2500, L100.0100 ####[facility] [address] [place], [address] IG% 0.300 Normal 0.0-0.9 [facility] Comment on above: Result Comment: IG% - Immature Granulocytes (promyelocytes, myelocytes and metamyelocytes) > 1% indicates that a LEFT SHIFT is Present. Performed By: #### L 500.2500, L100.0100 ####[facility] [address] [place], [address] Lymphocytes/100 WBC (Bld) 34.7 % Normal 19-41 [facility] Comment on above: Performed By: #### L 500.2500, L100.0100 ####[facility] [address] [place], [address] MCH (RBC) [Entitic mass] 27.5 pg Normal 27.0-32.0 [facility] Comment on above: Performed By: #### L 500.2500, L100.0100 ####[facility] [address] [place], [address] MCHC (RBC) [Mass/Vol] 32.2 g/dL Normal 32-36 [facility] Comment on above: Performed By: #### L 500.2500, L100.0100 ####[facility] [address] [place], [address] MCV (RBC) [Entitic vol] 85.6 fL Normal 81-99 [facility] Comment on above: Performed By: #### L 500.2500, L100.0100 ####[facility] [address] [place], [address] Monocytes/100 WBC (Bld) 7.3 % Normal 0-10 [facility] Comment on above: Performed By: #### L 500.2500, L100.0100 ####[facility] [address] [place], [address] Neutrophils/100 WBC (Bld) 54.7 % Normal 47-70 [facility] Comment on above: Performed By: #### L 500.2500, L100.0100 ####[facility] [address] [place], [address] Nucleated RBC (Bld) [#/Vol] 0 10*3/uL Normal 0-5 [facility] Comment on above: Performed By: #### L 500.2500, L100.0100 ####[facility] [address] [place], [address] Platelet mean volume (Bld) [Entitic vol] 10.6 fL Normal 6.2-12.0 [facility] Comment on above: Performed By: #### L 500.2500, L100.0100 ####[facility] [address] [place], [address] Platelets (Bld) [#/Vol] 208 10*3/uL Normal 150-450 [facility] Comment on above: Performed By: #### L 500.2500, L100.0100 ####[facility] [address] [place], [address] RBC (Bld) [#/Vol] 4.03 10*6/uL Low 4.2-5.4 [facility] Comment on above: Performed By: #### L 500.2500, L100.0100 ####[facility] [address] [place], [address] RDW SD 45.6 fl High 35.1-43.9 [facility] Comment on above: Performed By: #### L 500.2500, L100.0100 ####[facility] [address] [place], [address] WBC (Bld) [#/Vol] 6.9 10*3/uL Normal 4.4-11.0 [facility] Comment on above: Performed By: #### L 500.2500, L100.0100 ####[facility] [address] [place], [address] Carbon dioxide, total [Moles /volume] in Central venous bloodOrdered By: Oseas Aviles on 01-11-2025 CO2 [Moles/Vol] 22.4 mmol/L 21.0-32.0 [facility] Chloride assayOrdered By: Nnamdi Aviles on 01-11-2025 Chloride [Moles/Vol] 106 mmol/L 98-108 [facility] Emergency Department Summary on 01-11-2025 Emergency Department Summary [facility] Medical Records Department [address] [place] [address] Emergency Department Summary 01/11/25 MR#: [id number] Acct: [id number] Name: BETSY MESA Rep #: [id number] : 1995 29 From: Oseas Aviles MD [...] past with a negative workup done at [facility] 1 to 2 years ago. She denies any nausea, vomiting or diarrhea. No dysuria. No fever. She is on no blood thinners. Prior similar symptoms: Yes Recent Illness/Hospitalizatio n: No [facility] Medical History Anxiety Paresthesias Cervical radiculopathy Cervicalgia [...] normal. NIH 0. No facial droop. 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 Fingertip to nose [id number]-qiak within normal limits. No drift. Const Vital [...] no scl (more content not included)... Normal [facility] Eosinophil percentageOrdered By: Oseas Aviles on 01-11-2025 Eosinophils/100 WBC (Bld) 2.6 % 0-5 [facility] Erythrocyte distribution wid th ratioOrdered By: Oseas Aviles on 01-11-2025 Erythrocyte distribution width (RBC) [Ratio] 14.7 % High 11.6-14.6 [facility] Erythrocyte distribution wid th standard deviationOrdered By: Oseas Aviles on 01-11-2025 Erythrocyte distribution width (RBC) [Ratio] 45.6 fl High 35.1-43.9 [facility] Glomerular filtration rate ( GFR) estimation/1.73 sq m using serum, plasma, or whole bOrdered By: Oseas Aviles on 01-11-2025 GFR/1.73 sq M.predicted among non-blacks MDRD (S/P/Bld) [Vol rate/Area] 114 mL/min/{1.73_m2} >60 [facility] Comment on above: mL/min/1.73m2 CKD-EP I Creatinine Equation (2020) Hematocrit Auto (Bld) [Volum e fraction]Ordered By: Oseas Aviles on 01-11-2025 Hematocrit (Bld) [Volume fraction] 34.5 % Low 37-47 [facility] Hemoglobin measurementOrdere d By: Oseas Aviles on 01-11-2025 Hemoglobin (Bld) [Mass/Vol] 11.1 g/dL Low 12.0-15.0 [facility] Immature granulocytes/100 WB C Auto (Bld)Ordered By: Oseas Aviles on 01-11-2025 Immature granulocytes/100 WBC (Bld) 0.300 % 0.0-0.9 [facility] Comment on above: IG% - Immature Granu locytes (promyelocytes, myelocytes and metamyelocytes) > 1% indicates that a LEFT SHIFT is Present. MCV (mean corpuscular volume ) determinationOrdered By: Oseas Aviles on 01-11-2025 MCV (RBC) [Entitic vol] 85.6 fL 81-99 [facility] Mean corpuscular hemoglobin (MCH) determinationOrdered By: Oseas Aviles on 01-11-2025 MCH (RBC) [Entitic mass] 27.5 pg 27.0-32.0 [facility] Mean corpuscular hemoglobin concentration (MCHC) determinationOrdered By: Oseas Aviles on 01-11-2025 MCHC (RBC) [Mass/Vol] 32.2 g/dL 32-36 [facility] Mean platelet volume determi nationOrdered By: Oseas Aviles on 01-11-2025 Platelet mean volume (Bld) [Entitic vol] 10.6 fL 6.2-12.0 [facility] Monocyte percentageOrdered B y: Oseas Aviles on 01-11-2025 Monocytes/100 WBC (Bld) 7.3 % 0-10 [facility] Neutrophil percentageOrdered By: Oseas Aviles on 01-11-2025 Neutrophils/100 WBC (Bld) 54.7 % 47-70 [facility] Nucleated red blood cell per centageOrdered By: Oseas Aviles on 01-11-2025 Nucleated RBC/100 WBC (Bld) [Ratio] 0 % 0-5 [facility] Platelet countOrdered By: Nnamdi Aviles on 01-11-2025 Platelets (Bld) [#/Vol] 208 10*3/uL 150-450 [facility] Potassium measurement (mass/ volume)Ordered By: Oseas Aviles on 01-11-2025 Potassium (Unsp spec) [Mass/Vol] 3.9 mmol/L 3.3-5.1 [facility] RBC Auto (Bld) [#/Vol]Ordere d By: Oseas Aviles on 01-11-2025 RBC (Bld) [#/Vol] 4.03 10*6/uL Low 4.2-5.4 [facility] Serum creatinine measurement (mass/volume)Ordered By: Oseas Aviles on 01-11-2025 Creatinine [Mass/Vol] 0.73 mg/dL 0.70-1.20 [facility] Serum glucose measurement (m ass/volume)Ordered By: Oseas Aviles on 01-11-2025 Glucose [Mass/Vol] 133 mg/dL High 70-99 [facility] Serum or plasma calcium jelani urement (mass/volume)Ordered By: Oseas Aviles on 01-11-2025 Calcium [Mass/Vol] 9.3 mg/dL 7.6-11.0 [facility] Serum or plasma urea nitroge n measurement (mass/volume)Ordered By: Oseas Aviles on 01-11-2025 Urea nitrogen [Mass/Vol] 11 mg/dL 4-19 [facility] Sodium levelOrdered By: Oseas Aviles on 01-11-2025 Sodium [Moles/Vol] 138 mmol/L 133-145 [facility] White blood cell (WBC) count Ordered By: Oseas Aviles on 01-11-2025 WBC (Bld) [#/Vol] 6.9 10*3/uL 4.4-11.0 [facility] A1Con 08-23-2024 Glucose [Mass/Vol] 134 mg/dL High <=114 [facility] Comment on above: Result Comment: Sarah mated Average Glucose calculated by equation ((28.7xA1C)-46.7) Estimated average glucose (eAG) is a calculated value from Hemoglobin A1C and is fulfillment representative of the average blood glucose level in the last 2-3 month period. Normal range: less than 114 mg/dL Performed By: #### F E, A1C, ANEU, FT3, FT4, CMP, GFR, ADIFF, FERR, TSH, CBC #### [facility] [address] [place], [place] [address] HbA1c (Bld) [Mass fraction] 6.3 % Normal [facility] Comment on above: Result Comment: Inte [...] CMP, GFR, ADIFF, FERR, TSH, CBC #### [facility] [address] [place] [address] .Auto Diffon 08-22-2024 Basophil, Absolute 0.0 10 3/mcL Normal 0.0-0.3 [facility] Comment on above: Performed By: #### F E, A1C, ANEU, FT3, FT4, CMP, GFR, ADIFF, FERR, TSH, CBC #### [facility] [address] [address] Basophils/100 WBC (Bld) 0.5 % Normal 0.0-2.5 [facility] Comment on above: Performed By: #### F E, A1C, ANEU, FT3, FT4, CMP, GFR, ADIFF, FERR, TSH, CBC #### [facility] [address] [address] Eosinophil, Absolute 0.1 10 3/mcL Normal 0.0-0.7 [facility] Comment on above: Performed By: #### F E, A1C, ANEU, FT3, FT4, CMP, GFR, ADIFF, FERR, TSH, CBC #### [facility] [address] [address] Eosinophils/100 WBC (Bld) 2.2 % Normal 0.0-6.0 [facility] Comment on above: Performed By: #### F E, A1C, ANEU, FT3, FT4, CMP, GFR, ADIFF, FERR, TSH, CBC #### [facility] [address] [address] Lymphocyte, Absolute 2.3 10 3/mcL Normal 0.9-4.3 [facility] Comment on above: Performed By: #### F E, A1C, ANEU, FT3, FT4, CMP, GFR, ADIFF, FERR, TSH, CBC #### [facility] [address] [place], [place] [address] Lymphocytes/100 WBC (Bld) 40.9 % High 20.0-40.0 [facility] Comment on above: Performed By: #### F E, A1C, ANEU, FT3, FT4, CMP, GFR, ADIFF, FERR, TSH, CBC #### [facility] [address] [place], [place] [address] Monocyte, Absolute 0.4 10 3/mcL Normal 0.1-1.4 [facility] Comment on above: Performed By: #### F E, A1C, ANEU, FT3, FT4, CMP, GFR, ADIFF, FERR, TSH, CBC #### [facility] [address] [place], [place] [address] Monocytes/100 WBC (Bld) 7.2 % Normal 2.0-13.0 [facility] Comment on above: Performed By: #### F E, A1C, ANEU, FT3, FT4, CMP, GFR, ADIFF, FERR, TSH, CBC #### [facility] [address] [place], [place] [address] Neutrophils/100 WBC (Bld) 49.2 % Low 50.0-75.0 [facility] Comment on above: Performed By: #### F E, A1C, ANEU, FT3, FT4, CMP, GFR, ADIFF, FERR, TSH, CBC #### [facility] [address] [place], [place] [address] .GFRon 08-22-2024 GFR Non- 87 ml/min/1.73sqm Normal [facility] Comment on above: Result Comment: GFR [...] CMP, GFR, ADIFF, FERR, TSH, CBC #### [facility] [address] [place], [place] [address] GFR 106 ml/min/1.73sqm Normal [facility] Comment on above: Result Comment: GFR [...] CMP, GFR, ADIFF, FERR, TSH, CBC #### [facility] [address] [address] .NEUABSon 08-22-2024 Neutrophil, Absolute 2.7 10 3/mcL Normal 2.3-8.1 [facility] Comment on above: Performed By: #### F E, A1C, ANEU, FT3, FT4, CMP, GFR, ADIFF, FERR, TSH, CBC #### [facility] [address] [address] CBCon 08-22-2024 Erythrocyte distribution width (RBC) [Ratio] 17.9 % High 11.5-15.5 [facility] Comment on above: Performed By: #### F E, A1C, ANEU, FT3, FT4, CMP, GFR, ADIFF, FERR, TSH, CBC #### [facility] [address] [address] Hematocrit (Bld) [Volume fraction] 34.1 % Normal 34.0-46.0 [facility] Comment on above: Performed By: #### F E, A1C, ANEU, FT3, FT4, CMP, GFR, ADIFF, FERR, TSH, CBC #### [facility] [address] [address] Hgb 10.7 G/dL Low 12.0-16.0 [facility] Comment on above: Performed By: #### F E, A1C, ANEU, FT3, FT4, CMP, GFR, ADIFF, FERR, TSH, CBC #### [facility] [address] [address] MCH (RBC) [Entitic mass] 25.3 pg Low 27.0-33.0 [facility] Comment on above: Performed By: #### F E, A1C, ANEU, FT3, FT4, CMP, GFR, ADIFF, FERR, TSH, CBC #### [facility] [address] [address] MCHC 31.4 G/dL Low 32.0-36.0 [facility] Comment on above: Performed By: #### F E, A1C, ANEU, FT3, FT4, CMP, GFR, ADIFF, FERR, TSH, CBC #### [facility] [address] [address] MCV (RBC) [Entitic vol] 80.4 fL Normal 80.0-99.0 [facility] Comment on above: Performed By: #### F E, A1C, ANEU, FT3, FT4, CMP, GFR, ADIFF, FERR, TSH, CBC #### [facility] [address] [address] Platelet 215 10 3/mcL Normal 150-450 [facility] Comment on above: Performed By: #### F E, A1C, ANEU, FT3, FT4, CMP, GFR, ADIFF, FERR, TSH, CBC #### [facility] [address] [address] Platelet mean volume (Bld) [Entitic vol] 8.8 fL Normal 6.6-10.5 [facility] Comment on above: Performed By: #### F E, A1C, ANEU, FT3, FT4, CMP, GFR, ADIFF, FERR, TSH, CBC #### [facility] [address] [address] RBC 4.24 10 6/mcL Normal 4.10-5.30 [facility] Comment on above: Performed By: #### F E, A1C, ANEU, FT3, FT4, CMP, GFR, ADIFF, FERR, TSH, CBC #### [facility] [address] [address] WBC 5.6 10 3/mcL Normal 4.5-10.8 [facility] Comment on above: Performed By: #### F E, A1C, ANEU, FT3, FT4, CMP, GFR, ADIFF, FERR, TSH, CBC #### [facility] [address] [address] CMPon 08-22-2024 Albumin Level 3.8 G/dL Normal 3.4-5.0 [facility] Comment on above: Performed By: #### F E, A1C, ANEU, FT3, FT4, CMP, GFR, ADIFF, FERR, TSH, CBC #### [facility] [address] [address] Albumin/Globulin [Mass ratio] 1.0 {ratio} Low 1.1-1.8 [facility] Comment on above: Performed By: #### F E, A1C, ANEU, FT3, FT4, CMP, GFR, ADIFF, FERR, TSH, CBC #### [facility] [address] [address] ALP [Catalytic activity/Vol] 76 U/L Normal 45-117 [facility] Comment on above: Performed By: #### F E, A1C, ANEU, FT3, FT4, CMP, GFR, ADIFF, FERR, TSH, CBC #### [facility] [address] [address] ALT [Catalytic activity/Vol] 28 U/L Normal 12-78 [facility] Comment on above: Performed By: #### F E, A1C, ANEU, FT3, FT4, CMP, GFR, ADIFF, FERR, TSH, CBC #### [facility] [address] [place], [place] [address] AST [Catalytic activity/Vol] 17 U/L Normal 15-37 [facility] Comment on above: Performed By: #### F E, A1C, ANEU, FT3, FT4, CMP, GFR, ADIFF, FERR, TSH, CBC #### [facility] [address] [place], [place] [address] Bili Total 0.4 mg/dL Normal 0.2-1.0 [facility] Comment on above: Result Comment: Use of this assay is not recommended for patients undergoing treatment with eltrombopag due to the potential for falsely elevated results. Performed By: #### F E, A1C, ANEU, FT3, FT4, CMP, GFR, ADIFF, FERR, TSH, CBC #### [facility] [address] [id number] BUN/Creatinine Ratio 9.0 ratio Low 10.0-22.0 [facility] Comment on above: Performed By: #### F E, A1C, ANEU, FT3, FT4, CMP, GFR, ADIFF, FERR, TSH, CBC #### [facility] [address] [id number] Calcium [Mass/Vol] 8.6 mg/dL Normal 8.5-10.1 [facility] Comment on above: Performed By: #### F E, A1C, ANEU, FT3, FT4, CMP, GFR, ADIFF, FERR, TSH, CBC #### [facility] [address] [place], [place] [address] Chloride [Moles/Vol] 106 mmol/L Normal 98-107 [facility] Comment on above: Performed By: #### F E, A1C, ANEU, FT3, FT4, CMP, GFR, ADIFF, FERR, TSH, CBC #### [facility] [address] [place], [place] [address] CO2 [Moles/Vol] 26 mmol/L Normal 21-32 [facility] Comment on above: Performed By: #### F E, A1C, ANEU, FT3, FT4, CMP, GFR, ADIFF, FERR, TSH, CBC #### [facility] [address], [place] [address] Creatinine [Mass/Vol] 0.78 mg/dL Normal 0.55-1.02 [facility] Comment on above: Result Comment: Test ing performed on Siemens Dimension Alpine analyzer using a modified kinetic Patricio technique. Performed By: #### F E, A1C, ANEU, FT3, FT4, CMP, GFR, ADIFF, FERR, TSH, CBC #### [facility] [address], [place] [address] Electrolyte Balance 4.0 mEq/L Normal 4.0-15.0 [facility] Comment on above: Performed By: #### F E, A1C, ANEU, FT3, FT4, CMP, GFR, ADIFF, FERR, TSH, CBC #### [facility] [address] [address] Globulin 3.7 G/dL Normal 2.5-4.6 [facility] Comment on above: Performed By: #### F E, A1C, ANEU, FT3, FT4, CMP, GFR, ADIFF, FERR, TSH, CBC #### [facility] [address] [id number] Glucose [Mass/Vol] 109 mg/dL High 70-100 [facility] Comment on above: Performed By: #### F E, A1C, ANEU, FT3, FT4, CMP, GFR, ADIFF, FERR, TSH, CBC #### [facility] [address], [place] [address] Potassium [Moles/Vol] 4.0 mmol/L Normal 3.5-5.1 [facility] Comment on above: Performed By: #### F E, A1C, ANEU, FT3, FT4, CMP, GFR, ADIFF, FERR, TSH, CBC #### [facility] [address], [place] [address] Sodium [Moles/Vol] 136 mmol/L Normal 136-145 [facility] Comment on above: Performed By: #### F E, A1C, ANEU, FT3, FT4, CMP, GFR, ADIFF, FERR, TSH, CBC #### [facility] [address], [place] [address] Total Protein 7.5 G/dL Normal 6.0-8.3 [facility] Comment on above: Performed By: #### F E, A1C, ANEU, FT3, FT4, CMP, GFR, ADIFF, FERR, TSH, CBC #### [facility] [address] [place], [place] [address] Urea nitrogen [Mass/Vol] 7.0 mg/dL Normal 7.0-18.0 [facility] Comment on above: Performed By: #### F E, A1C, ANEU, FT3, FT4, CMP, GFR, ADIFF, FERR, TSH, CBC #### [facility] [address] [address] FEon 08-22-2024 Iron [Mass/Vol] 38 ug/dL Low 50-170 [facility] Comment on above: Performed By: #### F E, A1C, ANEU, FT3, FT4, CMP, GFR, ADIFF, FERR, TSH, CBC #### [facility] [address] [address] Michael 08-22-2024 Ferritin 3.8 [id number] Low 8.0-252.0 [facility] Comment on above: Performed By: #### F E, A1C, ANEU, FT3, FT4, CMP, GFR, ADIFF, FERR, TSH, CBC #### [facility] [address] [address] FT3on 08-22-2024 Free T3 [Mass/Vol] 2.66 pg/mL Normal 2.18-3.98 [facility] Comment on above: Performed By: #### F E, A1C, ANEU, FT3, FT4, CMP, GFR, ADIFF, FERR, TSH, CBC #### [facility] [address] [address] FT4on 08-22-2024 Free T4 [Mass/Vol] 0.99 ng/dL Normal 0.76-1.46 [facility] Comment on above: Performed By: #### F E, A1C, ANEU, FT3, FT4, CMP, GFR, ADIFF, FERR, TSH, CBC #### [facility] [address] [place], [place] [address] TSHon 08-22-2024 TSH 0.583 mIU/mL Normal 0.358-3.740 [facility] Comment on above: Performed By: #### F E, A1C, ANEU, FT3, FT4, CMP, GFR, ADIFF, FERR, TSH, CBC #### [facility] [address] [place], [place] [address] ALLIED HEALTHon 08-11-2024 [facility] HNO ID: [id number] Author: TIFFANY GRIMES RT(R) Service: Radiology Author Type: Technologist Type: [facility] Filed: 08/11/2024 03:38 Note Text: Summary: [...] PATIENT PRESENTS WITH AN IMPLANTABLE OR ATTACHED SENIOR DATA WAREHOUSE ARCHITECT: No ALLERGIES: Reviewed and unchanged CONTRAST ALLERGY: [...] 11, 2024 TIME: 3:[address] [facility] CBC W Auto Differential pane l (Bld)on 08-11-2024 Basophils (Bld) [#/Vol] 0.03 10*3/uL Normal <0.11 [facility] Comment on above: Order Comment: Speci men Type: BLOOD SPECIMEN Ordering Facility: [facility] Address: [address] [place] [address] Performed By: #### 5 7021-8 #### [facility] CLIA [id number] [address] [place] [address] [place] Basophils/100 WBC (Bld) 0.5 % Normal [facility] Comment on above: Order Comment: Speci men Type: BLOOD SPECIMEN Ordering Facility: [facility] Address: [address] [place] [address] Performed By: #### 5 7021-8 #### [facility] CLIA [id number] [address] [place] [address] [place] Differential cell count method Nom (Bld) Auto Normal [facility] Comment on above: Order Comment: Speci men Type: BLOOD SPECIMEN Ordering Facility: [facility] Address: [address] [place] [address] Performed By: #### 5 7021-8 #### [facility] CLIA [id number] [address] [place] [address] [place] Eosinophils (Bld) [#/Vol] 0.14 10*3/uL Normal <0.46 [facility] Comment on above: Order Comment: Speci men Type: BLOOD SPECIMEN Ordering Facility: [facility] Address: [address] [place] [address] Performed By: #### 5 7021-8 #### [facility] CLIA [id number] [address] [place] [address] [place] Eosinophils/100 WBC (Bld) 2.2 % Normal [facility] Comment on above: Order Comment: Speci men Type: BLOOD SPECIMEN Ordering Facility: [facility] Address: [address] [place] [address] Performed By: #### 5 7021-8 #### [facility] CLIA [id number] [address] [place] [address] [place] Erythrocyte distribution width (RBC) [Ratio] 15.6 % High 11.5-15.0 [facility] Comment on above: Order Comment: Speci men Type: BLOOD SPECIMEN Ordering Facility: [facility] Address: [address] [place] [address] Performed By: #### 5 7021-8 #### [facility] CLIA [id number] [address] [place] [address] [place] Hematocrit (Bld) [Volume fraction] 32.8 % Low 36.0-46.0 [facility] Comment on above: Order Comment: Speci men Type: BLOOD SPECIMEN Ordering Facility: [facility] Address: [address] [place] [address] Performed By: #### 5 7021-8 #### [facility] CLIA [id number] [address] [place] [address] [place] Hemoglobin (Bld) [Mass/Vol] 10.3 g/dL Low 11.5-15.5 [facility] Comment on above: Order Comment: Speci men Type: BLOOD SPECIMEN Ordering Facility: [facility] Address: [address] [place] [address] Performed By: #### 5 7021-8 #### [facility] CLIA [id number] [address] [place] [address] [place] Immature granulocytes (Bld) [#/Vol] 10*3/uL Normal <0.10 [facility] Comment on above: Order Comment: Speci men Type: BLOOD SPECIMEN Ordering Facility: [facility] Address: [address] [place] [address] Performed By: #### 5 7021-8 #### [facility] CLIA [id number] [address] [place] [address] [place] Immature granulocytes/100 WBC (Bld) 0.3 % Normal [facility] Comment on above: Order Comment: Speci men Type: BLOOD SPECIMEN Ordering Facility: [facility] Address: [address] [place] [address] Performed By: #### 5 7021-8 #### [facility] CLIA [id number] [address] [place] [address] [place] Lymphocytes (Bld) [#/Vol] 2.36 10*3/uL Normal 1.00-4.00 [facility] Comment on above: Order Comment: Speci men Type: BLOOD SPECIMEN Ordering Facility: [facility] Address: [address] [place] [address] Performed By: #### 5 7021-8 #### [facility] CLIA [id number] [address] [place] [address] [place] Lymphocytes/100 WBC (Bld) 36.6 % Normal [facility] Comment on above: Order Comment: Speci men Type: BLOOD SPECIMEN Ordering Facility: [facility] Address: [address] [place] [address] Performed By: #### 5 7021-8 #### [facility] CLIA [id number] [address] [place] [address] [place] MCH (RBC) [Entitic mass] 25.6 pg Low 26.0-34.0 [facility] Comment on above: Order Comment: Speci men Type: BLOOD SPECIMEN Ordering Facility: [facility] Address: [address] [place] [address] Performed By: #### 5 7021-8 #### [facility] CLIA [id number] [address] [place] [address] [place] MCHC (RBC) [Mass/Vol] 31.4 g/dL Normal 30.5-36.0 [facility] Comment on above: Order Comment: Speci men Type: BLOOD SPECIMEN Ordering Facility: [facility] Address: [address] [place] [address] Performed By: #### 5 7021-8 #### [facility] CLIA [id number] [address] [place] [address] [place] MCV (RBC) [Entitic vol] 81.4 fL Normal 80.0-100.0 [facility] Comment on above: Order Comment: Speci men Type: BLOOD SPECIMEN Ordering Facility: [facility] Address: [address] [place] [address] Performed By: #### 5 7021-8 #### [facility] CLIA [id number] [address] [place] [address] [place] Monocytes (Bld) [#/Vol] 0.46 10*3/uL Normal <0.87 [facility] Comment on above: Order Comment: Speci men Type: BLOOD SPECIMEN Ordering Facility: [facility] Address: [address] [place] [address] Performed By: #### 5 7021-8 #### [facility] CLIA [id number] [address] [place], [place] [address] [place] Monocytes/100 WBC (Bld) 7.1 % Normal [facility] Comment on above: Order Comment: Speci men Type: BLOOD SPECIMEN Ordering Facility: [facility] Address: [address] [place] [address] Performed By: #### 5 7021-8 #### [facility] CLIA [id number] [address] [place] [address] [place] Neutrophils (Bld) [#/Vol] 3.44 10*3/uL Normal 1.45-7.50 [facility] Comment on above: Order Comment: Speci men Type: BLOOD SPECIMEN Ordering Facility: [facility] Address: [address] [place] [address] Performed By: #### 5 7021-8 #### [facility] CLIA [id number] [address] [place] [address] [place] Neutrophils/100 WBC (Bld) 53.3 % Normal [facility] Comment on above: Order Comment: Speci men Type: BLOOD SPECIMEN Ordering Facility: [facility] Address: [address] [place] [address] Performed By: #### 5 7021-8 #### [facility] CLIA [id number] [address] [place], [place] [address] [place] Nucleated RBC (Bld) [#/Vol] 10*3/uL Normal <0.01 [facility] Comment on above: Order Comment: Speci men Type: BLOOD SPECIMEN Ordering Facility: [facility] Address: [address] [place] [address] Performed By: #### 5 7021-8 #### [facility] CLIA [id number] [address] [place] [address] [place] Nucleated RBC/100 WBC (Bld) [Ratio] 0.0 /[address] [facility] Comment on above: Order Comment: Speci men Type: BLOOD SPECIMEN Ordering Facility: [facility] Address: [address] [place] [address] Performed By: #### 5 7021-8 #### [facility] CLIA [id number] [address] [place] [address] [place] Platelet mean volume (Bld) [Entitic vol] 10.8 fL Normal 9.0-12.7 [facility] Comment on above: Order Comment: Speci men Type: BLOOD SPECIMEN Ordering Facility: [facility] Address: [address] [place] [address] Performed By: #### 5 7021-8 #### [facility] CLIA [id number] [address] [place] [address] [place] Platelets (Bld) [#/Vol] 220 10*3/uL Normal 150-400 [facility] Comment on above: Order Comment: Speci men Type: BLOOD SPECIMEN Ordering Facility: [facility] Address: [address] [place] [address] Performed By: #### 5 7021-8 #### [facility] CLIA [id number] [address] [place] [address] [place] RBC (Bld) [#/Vol] 4.03 10*6/uL Normal 3.90-5.20 [facility] Comment on above: Order Comment: Speci men Type: BLOOD SPECIMEN Ordering Facility: [facility] Address: [address] [place] [address] Performed By: #### 5 7021-8 #### [facility] CLIA [id number] [address] [place] [address] [place] WBC (Bld) [#/Vol] 6.45 10*3/uL Normal 3.70-11.00 [facility] Comment on above: Order Comment: Speci men Type: BLOOD SPECIMEN Ordering Facility: [facility] Address: [address] [place] [address] Performed By: #### 5 7021-8 #### [facility] CLIA [id number] [address] [place] [address] [place] CT ABD/PEL W IVCONon 025 CT ABD/PEL W IVCON * * *Final Report* * * DATE OF EXAM: Aug 11 2024 3:50AM [facility] 0530 - CT ABD/PEL W IVCON / [...] pulmonary embolism. 2. No acute abdominal abnormality Lay Out Maker: [facility] Transcribe Date/Time: Aug 11 2024 3:59A Dictated by : MARCELO LAI MD This examination was interpreted and the report reviewed and electronically signed by: MARCELO LAI MD on Aug 11 2024 4:12AM EST [id number] Normal [facility] CTA CHEST (NON GATED) W IVCO N PEon 08-11-2024 CTA CHEST (NON GATED) W IVCON PE * * *Final Report* * * DATE OF EXAM: Aug 11 2024 3:50AM [facility] 0564 - CTA CHEST (NON GATED) W [...] pulmonary embolism. 2. No acute abdominal abnormality Lay Out Maker: [facility] Transcribe Date/Time: Aug 11 2024 3:59A Dictated by : MARCELO LAI MD This examination was interpreted and the report reviewed and electronically signed by: MARCELO LAI MD on Aug 11 2024 4:12AM EST [id number] Normal [facility] Comprehensive metabolic 2000 panelon 08-11-2024 Albumin [Mass/Vol] 3.6 g/dL Normal 3.2-5.0 [facility] Comment on above: Order Comment: Speci men Type: BLOOD SPECIMEN Ordering Facility: [facility] Address: [address] [place], [place] [address] Performed By: #### 2 4323-8, 3040-3, HSTROP #### [facility] CLIA [id number] [address] [place] [address] [place] ALP [Catalytic activity/Vol] 83 U/L Normal 45-117 [facility] Comment on above: Order Comment: Speci men Type: BLOOD SPECIMEN Ordering Facility: [facility] Address: [address] [place] [address] Performed By: #### 2 4323-8, 3040-3, HSTROP #### [facility] CLIA [id number] [address] [place], [place] [address] [place] ALT [Catalytic activity/Vol] 21 U/L Normal 13-61 [facility] Comment on above: Order Comment: Speci men Type: BLOOD SPECIMEN Ordering Facility: [facility] Address: [address] [place] [address] Result Comment: Resu lts may be falsely depressed after the administration of Sulfasalazine and/or Sulfapyridine. Performed By: #### 2 4323-8, 3040-3, HSTROP #### [facility] CLIA [id number] [address] [place], [place] [address] [place] [facility] Anion gap [Moles/Vol] 5 mmol/L Normal 5-16 [facility] Comment on above: Order Comment: Speci men Type: BLOOD SPECIMEN Ordering Facility: [facility] Address: [address] [place] [address] Performed By: #### 2 4323-8, 0-3, HSTROP #### [facility] CLIA [id number] [address] [place] [address] [place] AST [Catalytic activity/Vol] 19 U/L Normal 8-34 [facility] Comment on above: Order Comment: Speci men Type: BLOOD SPECIMEN Ordering Facility: [facility] Address: [address] [place] [address] Result Comment: Resu lts may be falsely depressed after the administration of Sulfasalazine and/or Sulfapyridine. Performed By: #### 2 4323-8, 3040-3, HSTROP #### [facility] CLIA [id number] [address] [place], [place] [address] [place] Bilirubin [Mass/Vol] 0.2 mg/dL Normal 0.2-1.0 [facility] Comment on above: Order Comment: Speci men Type: BLOOD SPECIMEN Ordering Facility: [facility] Address: [address] [place] [address] Performed By: #### 2 4323-8, 3040-3, HSTROP #### [facility] CLIA [id number] [address] [place], [place] [address] [place] Calcium [Mass/Vol] 9.4 mg/dL Normal 8.5-10.5 [facility] Comment on above: Order Comment: Speci men Type: BLOOD SPECIMEN Ordering Facility: [facility] Address: [address] [place] [address] Performed By: #### 2 4323-8, 0-3, HSTROP #### [facility] CLIA [id number] [address] [place] [address] [place] Chloride [Moles/Vol] 106 mmol/L Normal 98-107 [facility] Comment on above: Order Comment: Speci men Type: BLOOD SPECIMEN Ordering Facility: [facility] Address: [address] [place] [address] Performed By: #### 2 4323-8, 3040-3, HSTROP #### [facility] CLIA [id number] [address] [place], [place] [address] [place] CO2 [Moles/Vol] 25 mmol/L Normal 21-32 [facility] Comment on above: Order Comment: Speci men Type: BLOOD SPECIMEN Ordering Facility: [facility] Address: [address] [place] [address] Performed By: #### 2 4323-8, 3040-3, HSTROP #### [facility] CLIA [id number] [address] [place], [place] [address] [place] Creatinine [Mass/Vol] 0.63 mg/dL Normal 0.51-0.95 [facility] Comment on above: Order Comment: Speci men Type: BLOOD SPECIMEN Ordering Facility: [facility] Address: [address] [place] [address] Result Comment: Temo ents receiving either N-Acetylcysteine (NAC) or Metamizole prior to venipuncture, may have falsely depressed results. Performed By: #### 2 4323-8, 3040-3, HSTROP #### [facility] CLIA [id number] [address] [place] [address] [place] Creatinine and Glomerular filtration rate.predicted panel (S/P/Bld) 123 mL/min/1.73m??? Normal >=60 [facility] Comment on above: Order Comment: Jessica rojo Type: BLOOD SPECIMEN Ordering Facility: [facility] Address: [address] [place] [address] Result Comment: Sarah mated Glomerular Filtration Rate [...] By: #### 2 4323-8, 3040-3, HSTROP #### [facility] CLIA [id number] [address] [place] [address] [place] Glucose [Mass/Vol] 142 mg/dL High 70-100 [facility] Comment on above: Order Comment: Jessica rojo Type: BLOOD SPECIMEN Ordering Facility: [facility] Address: [address] [place] [address] Result Comment: The [place] [employer] (ADA) provides guidance for cutoff [...] Standards of Medical Care in Diabetes 2016, [place] [employer]. Diabetes Care. 2016.39(Suppl 1). Results may be falsely elevated after the administration of Sulfapyridine. Results may be falsely depressed after the administration of Sulfasalazine. Performed By: #### 2 4323-8, 3040-3, HSTROP #### [facility] CLIA [id number] [address] [place], [place] [address] [place] Potassium [Moles/Vol] 3.7 mmol/L Normal 3.5-5.1 [facility] Comment on above: Order Comment: Speci men Type: BLOOD SPECIMEN Ordering Facility: [facility] Address: [address] [place] [address] Performed By: #### 2 4323-8, 0-3, HSTROP #### [facility] CLIA [id number] [address] [place] [address] [place] Protein [Mass/Vol] 7.2 g/dL Normal 6.0-8.5 [facility] Comment on above: Order Comment: Speci men Type: BLOOD SPECIMEN Ordering Facility: [facility] Address: [address] [place] [address] Performed By: #### 2 4323-8, 0-3, HSTROP #### [facility] CLIA [id number] [address] [place] [address] [place] Sodium [Moles/Vol] 136 mmol/L Normal 136-145 [facility] Comment on above: Order Comment: Speci men Type: BLOOD SPECIMEN Ordering Facility: [facility] Address: [address] [place] [address] Performed By: #### 2 4323-8, 0-3, HSTROP #### [facility] CLIA [id number] [address] [place], [place] [address] [place] Urea nitrogen [Mass/Vol] 10 mg/dL Normal 7-26 [facility] Comment on above: Order Comment: Speci men Type: BLOOD SPECIMEN Ordering Facility: [facility] Address: [address] [place] [address] Performed By: #### 2 4323-8, 3040-3, HSTROP #### [facility] CLIA [id number] [address] [place] [address] [place] ECG COMPLETEon 08-11-2024 ECG COMPLETE Ventricular Rate : 7 8 BPM Atrial Rate : 78 BPM P-R Interval : 198 ms QRS Duration : 84 ms Q-T Interval : 374 ms QTC Calculation(Bazett) : 426 ms Calculated P [place] : 47 degrees Calculated R [place] : 63 degrees Calculated T [place] : 47 degrees Normal sinus rhythm Normal ECG When compared with ECG of 05-Feb-2024 04:52, No significant change was found Confirmed by CECIL LANDEROS MD ([id number]) on 08/12/2024 2:10:44 PM NAME : BETSY MESA PID : [id number] : 1995 Gender : Female Race : Other ORD : [id number] Procedure Date : Aug 11 2024 02:58:03 Edit Date : Aug 12 2024 14:10:44 Diagnosis: Normal sinus rhythm Normal ECG When compared with ECG of 05-Feb-2024 04:52, No significant change was found Confirmed by CECIL LANDEROS MD ([id number]) on 08/12/2024 2:10:44 PM Test Reason : STAT Location : 0 : ED EDH02 Overread By : CECIL LANDEROS MD Edited By : CECIL LANDEROS MD Referred By : , Acquired by : [id number], [facility] ED PROV NOTEon 08-11-2024 ED PROV NOTE HNO ID: [id number] Author: RUBEN QUINTANA MD Service: ? Author [...] 104.3 kg (230 lb) 1.803 m (5' 11") Physical Exam HENT: Head: Normocephalic. Eyes: Extraocular [...] pyelone (more content not included)... Normal [facility] Gastrointestinal pathogens p tyra HUNG+probe (Stl)on 08-11-2024 ADENOVIRUS F 40/41 DNA Not detected Normal Not Detecte d [facility] Comment on above: Order Comment: Speci men Type: STOOL SPECIMEN Ordering Facility: [facility] Address: [address] [place] [address] Performed By: #### 7 9381-0 #### [facility] CLIA [id number] [address] [place] [address] [place] ASTROVIRUS RNA Not detected Normal Not Detected [facility] Comment on above: Order Comment: Speci men Type: STOOL SPECIMEN Ordering Facility: [facility] Address: [address] [place] [address] Performed By: #### 7 9381-0 #### [facility] CLIA [id number] [address] [place] [address] [place] C. cayetanensis DNA HUNG+probe Ql (Unsp spec) Not detected Normal Not Detected [facility] Comment on above: Order Comment: Speci men Type: STOOL SPECIMEN Ordering Facility: [facility] Address: [address] [place] [address] Performed By: #### 7 9381-0 #### [facility] [facility] CLIA [id number] [address] [place] [address] [facility] Campylobacter sp DNA.diarrheagenic HUNG+probe Ql (Stl) Not detected Normal Not Detected [facility] Comment on above: Order Comment: Speci men Type: STOOL SPECIMEN Ordering Facility: [facility] Address: [address] [place] [address] Performed By: #### 7 9381-0 #### [facility] CLIA [id number] [address] [place] [address] [place] Cryptosporidium sp DNA HUNG+probe Ql (Unsp spec) Not detected Normal Not Detected [facility] Comment on above: Order Comment: Speci men Type: STOOL SPECIMEN Ordering Facility: [facility] Address: [address] [place] [address] Performed By: #### 7 9381-0 #### [facility] CLIA [id number] [address] [place] [address] [facility] E. coli O157:H7 DNA HUNG+probe Ql (Unsp spec) Not applicable Normal Not detected [facility] Comment on above: Order Comment: Speci men Type: STOOL SPECIMEN Ordering Facility: [facility] Address: [address] [place] [address] Performed By: #### 7 9381-0 #### [facility] CLIA [id number] [address] [place] [address] [place] E. coli stx1+stx2 genes HUNG+probe Ql (Stl) Not detected Normal Not Detected [facility] Comment on above: Order Comment: Speci men Type: STOOL SPECIMEN Ordering Facility: [facility] Address: [address] [place] [address] Performed By: #### 7 9381-0 #### [facility] CLIA [id number] [address] [place] [address] [facility] E. histolytica DNA HUNG+probe Ql (Unsp spec) Not detected Normal Not Detected [facility] Comment on above: Order Comment: Speci men Type: STOOL SPECIMEN Ordering Facility: [facility] Address: [address] [place] [address] Performed By: #### 7 9381-0 #### [facility] CLIA [id number] [address] [place] [address] [place] ENTEROAGGREGATIVE E. COLI (EAEC) DNA Not detected Normal Not Detected [facility] Comment on above: Order Comment: Speci men Type: STOOL SPECIMEN Ordering Facility: [facility] Address: [address] [place] [address] Performed By: #### 7 9381-0 #### [facility] CLIA [id number] [address] [place] [address] [place] ENTEROPATHOGENIC E. COLI (EPEC) DNA Not detected Normal Not detected [facility] Comment on above: Order Comment: Speci men Type: STOOL SPECIMEN Ordering Facility: [facility] Address: [address] [place] [address] Performed By: #### 7 9381-0 #### [facility] CLIA [id number] [address] [place] [address] [place] ENTEROTOXIGENIC E. COLI (ETEC) DNA Not detected Normal Not Detected [facility] Comment on above: Order Comment: Speci men Type: STOOL SPECIMEN Ordering Facility: [facility] Address: [address] [place] [address] Performed By: #### 7 9381-0 #### [facility] CLIA [id number] [address] [place] [address] [facility] G. lamblia DNA HUNG+probe Ql (Unsp spec) Not detected Normal Not Detected [facility] Comment on above: Order Comment: Speci men Type: STOOL SPECIMEN Ordering Facility: [facility] Address: [address] [place] [address] Performed By: #### 7 9381-0 #### [facility] CLIA [id number] [address] [place] [address] [place] NOROVIRUS GI/GII RNA Not detected Normal Not Detected [facility] Comment on above: Order Comment: Speci men Type: STOOL SPECIMEN Ordering Facility: [facility] Address: [address] [place] [address] Performed By: #### 7 9381-0 #### [facility] CLIA [id number] [address] [place] [address] [place] PLESIOMONAS SHIGELLOIDES DNA Not detected Normal Not Detected [facility] Comment on above: Order Comment: Speci men Type: STOOL SPECIMEN Ordering Facility: [facility] Address: [address] [place] [address] Performed By: #### 7 9381-0 #### [facility] CLIA [id number] [address] [place] [address] [place] ROTAVIRUS A RNA Not detected Normal Not Detected [facility] Comment on above: Order Comment: Speci men Type: STOOL SPECIMEN Ordering Facility: [facility] Address: [address] [place] [address] Performed By: #### 7 9381-0 #### [facility] CLIA [id number] [address] [place] [address] [place] Salmonella sp DNA HUNG+probe Ql (Unsp spec) Not detected Normal Not Detected [facility] Comment on above: Order Comment: Speci men Type: STOOL SPECIMEN Ordering Facility: [facility] Address: [address] [place] [address] Performed By: #### 7 9381-0 #### [facility] CLIA [id number] [address] [place] [address] [place] SAPOVIRUS (GENOGROUPS I, II, IV, V) RNA Not detected Normal Not Detected [facility] Comment on above: Order Comment: Speci men Type: STOOL SPECIMEN Ordering Facility: [facility] Address: [address] [place] [address] Performed By: #### 7 9381-0 #### [facility] CLIA [id number] [address] [place] [address] [place] Shigella species+EIEC invasion plasmid antigen H ipaH gene HUNG+probe Ql (Stl) Not detected Normal Not Detected [facility] Comment on above: Order Comment: Speci men Type: STOOL SPECIMEN Ordering Facility: [facility] Address: [address] [place] [address] Performed By: #### 7 9381-0 #### [facility] IA [id number] [address] [place] [address] [place] V. cholerae DNA HUNG+probe Ql (Unsp spec) Not detected Normal Not Detected [facility] Comment on above: Order Comment: Speci men Type: STOOL SPECIMEN Ordering Facility: [facility] Address: [address] [place] [address] Performed By: #### 7 9381-0 #### [facility] CLIA [id number] [address] [place] [address] [place] Vibrio sp DNA HUNG+probe Nom (Unsp spec) Not detected Normal Not Detected [facility] Comment on above: Order Comment: Speci men Type: STOOL SPECIMEN Ordering Facility: [facility] Address: [address] [place] [address] Performed By: #### 7 9381-0 #### [facility] CLIA [id number] [address] [place] [address] [place] Yersinia sp DNA HUNG+probe Nom (Unsp spec) Not detected Normal Not Detected [facility] Comment on above: Order Comment: Speci men Type: STOOL SPECIMEN Ordering Facility: [facility] Address: [address] [place], [place] [address] Performed By: #### 7 9381-0 #### [facility] CLIA [id number] [address] [place], [place] [address] [place] HCG Preg Ur Qlon 08-11-2024 HCG ( test) Ql (U) Negative Normal Negative [facility] Comment on above: Order Comment: Speci men Type: URINE SPECIMEN Ordering Facility: [facility] Address: [address] [place] [address] Result Comment: This test is intended to aid in the early detection of . Very dilute urine samples, as indicated by a low specific gravity, may not contain fulfillment representative levels of hCG. This test detects [...] . Performed By: #### 2 106-3 #### [facility] CLIA [id number] [address] [place] [address] [place] HIGH SENSITIVITY TROPONIN Io n 08-11-2024 Tropinin I.cardiac panel High sensitivity method <2.5 Normal 0.0-34.0 [facility] Comment on above: Order Comment: Yuriyi men Type: BLOOD SPECIMEN Ordering Facility: [facility] Address: [address] [place] [address] Performed By: #### 2 4323-8, 3040-3, HSTROP #### [facility] CLIA [id number] [address] [place] [address] [place] Lipase SerPl-cCncon 08-11-19 25 Lipase [Catalytic activity/Vol] 45 U/L Normal 12-60 [facility] Comment on above: Order Comment: Yuriyi men Type: BLOOD SPECIMEN Ordering Facility: [facility] Address: [address] [place] [address] Performed By: #### 2 4323-8, 3040-3, HSTROP #### [facility] CLIA [id number] [address] [place] [address] Urinalysis complete panel (U )on 08-11-2024 Bacteria LM.HPF (Urine sed) [#/Area] None Seen Normal None Seen [facility] Comment on above: Order Comment: Speci men Type: URINE SPECIMEN Ordering Facility: [facility] Address: [address] [place] [address] Performed By: #### 2 4356-8 #### [facility] CLIA [id number] [address] [place] [address] Bilirubin Ql (U) Negative Normal Negative [facility] Comment on above: Order Comment: Speci men Type: URINE SPECIMEN Ordering Facility: [facility] Address: [address] [place] [address] Performed By: #### 2 4356-8 #### [facility] CLIA [id number] [address] [place] [address] CALCIUM OXALATE CRYSTALS (UA) Few Abnormal None Seen [facility] Comment on above: Order Comment: Speci men Type: URINE SPECIMEN Ordering Facility: [facility] Address: [address] [place] [address] Performed By: #### 2 4356-8 #### [facility] CLIA [id number] [address] [place] [address] [place] Clarity (Unsp spec) Clear Normal Clear [facility] Comment on above: Order Comment: Speci men Type: URINE SPECIMEN Ordering Facility: [facility] Address: [address] [place] [address] Performed By: #### 2 4356-8 #### [facility] CLIA [id number] [address] [place] [address] [place] Color (U) Yellow Normal Yellow [facility] Comment on above: Order Comment: Speci men Type: URINE SPECIMEN Ordering Facility: [facility] Address: [address] [place] [address] Performed By: #### 2 4356-8 #### [facility] CLIA [id number] [address] [place] [address] Epithelial cells LM.HPF (Urine sed) [#/Area] Few Normal [facility] Comment on above: Order Comment: Speci men Type: URINE SPECIMEN Ordering Facility: [facility] Address: [address] [place] [address] Performed By: #### 2 4356-8 #### [facility] CLIA [id number] [address] [place] [address] OF [facility] Glucose Test strip (U) [Mass/Vol] Negative Normal Negative [facility] Comment on above: Order Comment: Speci men Type: URINE SPECIMEN Ordering Facility: [facility] Address: [address] [place] [address] Performed By: #### 2 4356-8 #### [facility] CLIA [id number] [address] [place] [address] OF [facility] Hemoglobin Ql (U) 3+ Abnormal Negative [facility] Comment on above: Order Comment: Speci men Type: URINE SPECIMEN Ordering Facility: [facility] Address: [address] [place] [address] Performed By: #### 2 4356-8 #### [facility] CLIA [id number] [address] [place] [address] [place] Ketones Ql (U) Negative Normal Negative [facility] Comment on above: Order Comment: Speci men Type: URINE SPECIMEN Ordering Facility: [facility] Address: [address] [place] [address] Performed By: #### 2 4356-8 #### [facility] CLIA [id number] [address] [place] [address] OF [facility] Leukocyte esterase Test strip Ql (U) Trace Abnormal Negative [facility] Comment on above: Order Comment: Speci men Type: URINE SPECIMEN Ordering Facility: [facility] Address: [address] [place] [address] Performed By: #### 2 4356-8 #### [facility] CLIA [id number] [address] [place] [address] [place] Nitrite Ql (U) Negative Normal Negative [facility] Comment on above: Order Comment: Speci men Type: URINE SPECIMEN Ordering Facility: [facility] Address: [address] [place] [address] Performed By: #### 2 4356-8 #### [facility] CLIA [id number] [address] [place] [address] [place] pH (U) 6.0 [pH] Normal 5.0-8.0 [facility] Comment on above: Order Comment: Speci men Type: URINE SPECIMEN Ordering Facility: [facility] Address: [address] [place] [address] Performed By: #### 2 4356-8 #### [facility] CLIA [id number] [address] [place] [address] [place] Protein (U) [Mass/Vol] Negative Normal Negative [facility] Comment on above: Order Comment: Speci men Type: URINE SPECIMEN Ordering Facility: [facility] Address: [address] [place] [address] Performed By: #### 2 4356-8 #### [facility] CLIA [id number] [address] [place] [address] [place] RBC LM.HPF (Urine sed) [#/Area] /[HPF] Abnormal 0-3 /HPF [facility] Comment on above: Order Comment: Speci men Type: URINE SPECIMEN Ordering Facility: [facility] Address: [address] [place] [address] Performed By: #### 2 4356-8 #### [facility] CLIA [id number] [address] [place] [address] [place] Specific gravity (U) [Rel density] 1.017 Normal 1.005-1.030 [facility] Comment on above: Order Comment: Speci men Type: URINE SPECIMEN Ordering Facility: [facility] Address: [address] [place] [address] [place] [address] Performed By: #### 2 4356-8 #### [facility] CLIA [id number] [address] [place] [address] Urobilinogen Ql (U) Negative Normal Negative [facility] Comment on above: Order Comment: Speci men Type: URINE SPECIMEN Ordering Facility: [facility] Address: [address] [place] [address] Performed By: #### 2 4356-8 #### [facility] CLIA [id number] [address] [place] [address] [place] WBC LM.HPF (Urine sed) [#/Area] /[HPF] Abnormal 0-5 /HPF [facility] Comment on above: Order Comment: Speci men Type: URINE SPECIMEN Ordering Facility: [facility] Address: [address] [place] [address] Performed By: #### 2 4356-8 #### [facility] CLIA [id number] [address] [place] [address] [place] Emergency Department Summary on 08-08-2024 Emergency Department Summary [facility] Medical Records Department [address] [place] [address] Emergency Department Summary 08/08/24 MR#: [id number] Acct: [id number] Name: BETSY MESA Rep #: [id number] : 1995 29 From: Nelson Ulloa DO [...] pain and therefore comes in for evaluation [facility] Medical History (Updated 08/08/24 @ 01:19 by [...] obvious physic (more content not included)... Normal [facility] Emergency Department Summary on 07-17-2024 Emergency Department Summary [facility] Medical Records Department [address] [place] [address] Emergency Department Summary 07/17/24 MR#: [id number] Acct: [id number] Name: BETSY MESA Rep #: [id number] : 1995 29 From: Oseas Aviles MD [...] water does help. Denies any other injury. [facility] Medical History Anxiety Paresthesias Cervical radiculopathy Cervicalgia [...] Ox 99 Oxygen Delivery Method Room Air [facility] MDM Treatment and Re-Evaluation :: Differential diagnosis [...] area, is roughly 0.5 cm in a [place]. Patient will be given oral ibuprofen. She [...] DAILY amoxicillin (more content not included)... Normal [facility] Emergency Department Summary on 07-12-2024 Emergency Department Summary [facility] Medical Records Department [address] [place] [address] Emergency Department Summary 07/12/24 MR#: [id number] Acct: [id number] Name: BETSY MESA Rep #: [id number] : 1995 29 From: Abhinav Sofia DO [...] Provider: Vishal (more content not included)... Normal [facility] M100.677on 07-12-2024 M100.677 Pending Rapid Strep A PCR A POSITIVE A Streptococcus group A Normal [facility] Comment on above: Performed By: #### M 100.678, M100.677 ####[facility] [address] [place], [address] M100.678on 07-12-2024 M100.678 Pending SARS-CoV-2 (COVID 19) Negative INFLUENZA A Negative INFLUENZA B Negative RSV PCR Negative Normal [facility] Comment on above: Performed By: #### M 100.678, M100.677 ####[facility] [address] [place], [address] Basic Metabolic Profile (BMP )on 06-16-2024 BUN/CRE 16.9 RATIO Normal - [facility] Comment on above: Performed By: #### L 501.9520, L100.0100, L500.2500, L501.5200 #### [facility] Laboratory [address] [place], [address] CA,Total 9.0 mg/dL Normal 8.5-10.1 [facility] Comment on above: Performed By: #### L 501.9520, L100.0100, L500.2500, L501.5200 #### [facility] [address] [place], [address] Chloride [Moles/Vol] 108 mmol/L High 98-107 [facility] Comment on above: Performed By: #### L 501.9520, L100.0100, L500.2500, L501.5200 #### [facility] [address] [place], [address] CO2 [Moles/Vol] 28.0 mmol/L Normal 21.0-32.0 [facility] Comment on above: Performed By: #### L 501.9520, L100.0100, L500.2500, L501.5200 #### [facility] [address] [place], [address] Creatinine [Mass/Vol] 0.77 mg/dL Normal 0.55-1.02 [facility] Comment on above: Result Comment: The validity of the calculated GFR GFRAA in patients over 70 years has not been determined. Clinical correlation is essential. Performed By: #### L 501.9520, L100.0100, L500.2500, L501.5200 #### [facility] [address] [place], [address] ECRCL 138.63 ml/min Normal [facility] Comment on above: Performed By: #### L 501.9520, L100.0100, L500.2500, L501.5200 #### [facility] [address] [place], [address] EST GFR - AA 114 mL/min Normal >60 [facility] Comment on above: Result Comment: Afri can [place] GFR Calc Performed By: #### L 501.9520, L100.0100, L500.2500, L501.5200 #### [facility] [address] [place], [address] GAP 3 Low 5-15 [facility] Comment on above: Performed By: #### L 501.9520, L100.0100, L500.2500, L501.5200 #### [facility] [address] [place], [address] GFR/1.73 sq M.predicted among non-blacks MDRD (S/P/Bld) [Vol rate/Area] 94 mL/min/{1.73_m2} Normal >60 [facility] Comment on above: Result Comment: Non- GFR Calc Performed By: #### L 501.9520, L100.0100, L500.2500, L501.5200 #### [facility] [address] [place], [address] Glucose [Mass/Vol] 104 mg/dL Normal 74-106 [facility] Comment on above: Result Comment: Fast ing Glucose result from 100 to 125 mg/dL suggests IMPAIRED HOMEOSTASIS per A.D.A. criteria. Performed By: #### L 501.9520, L100.0100, L500.2500, L501.5200 #### [facility] [address] [place], [address] Potassium [Moles/Vol] 3.8 mmol/L Normal 3.5-5.1 [facility] Comment on above: Performed By: #### L 501.9520, L100.0100, L500.2500, L501.5200 #### [facility] [address] [place], [address] Sodium [Moles/Vol] 139 mmol/L Normal 136-145 [facility] Comment on above: Performed By: #### L 501.9520, L100.0100, L500.2500, L501.5200 #### [facility] [address] [place], [address] Urea nitrogen [Mass/Vol] 13 mg/dL Normal 7-18 [facility] Comment on above: Performed By: #### L 501.9520, L100.0100, L500.2500, L501.5200 #### [facility] [address] [place], [address] CBC W/Diff, Automatedon 11 Absolute Lymph 3.38 X10 3/uL Normal 0.83-4.51 [facility] Comment on above: Performed By: #### L 501.9520, L100.0100, L500.2500, L501.5200 #### [facility] [address] [place], [address] Absolute Neut 4.1 X10 3/uL Normal 2.0-7.7 [facility] Comment on above: Performed By: #### L 501.9520, L100.0100, L500.2500, L501.5200 #### [facility] [address] [place], [address] Basophils/100 WBC (Bld) 0.5 % Normal 0-1 [facility] Comment on above: Performed By: #### L 501.9520, L100.0100, L500.2500, L501.5200 #### [facility] [address] [place], [address] Eosinophils/100 WBC (Bld) 2.2 % Normal 0-5 [facility] Comment on above: Performed By: #### L 501.9520, L100.0100, L500.2500, L501.5200 #### [facility] [address] [place], [address] Erythrocyte distribution width (RBC) [Ratio] 14.6 % Normal 11.6-14.6 [facility] Comment on above: Performed By: #### L 501.9520, L100.0100, L500.2500, L501.5200 #### [facility] [address] [place], [address] Hematocrit (Bld) [Volume fraction] 31.0 % Low 37-47 [facility] Comment on above: Performed By: #### L 501.9520, L100.0100, L500.2500, L501.5200 #### [facility] [address] [place], [address] Hemoglobin (Bld) [Mass/Vol] 9.8 g/dL Low 12.0-15.0 [facility] Comment on above: Performed By: #### L 501.9520, L100.0100, L500.2500, L501.5200 #### [facility] [address] [place], [address] IG% 0.100 Normal 0.0-0.9 [facility] Comment on above: Result Comment: IG% - Immature Granulocytes (promyelocytes, myelocytes and metamyelocytes) > 1% indicates that a LEFT SHIFT is Present. Performed By: #### L 501.9520, L100.0100, L500.2500, L501.5200 #### [facility] [address] [place], [address] Lymphocytes/100 WBC (Bld) 41.0 % Normal 19-41 [facility] Comment on above: Performed By: #### L 501.9520, L100.0100, L500.2500, L501.5200 #### [facility] [address] [place], [place], [address] MCH (RBC) [Entitic mass] 26.9 pg Low 27.0-32.0 [facility] Comment on above: Performed By: #### L 501.9520, L100.0100, L500.2500, L501.5200 #### [facility] [address] [place], [address] MCHC (RBC) [Mass/Vol] 31.6 g/dL Low 32-36 [facility] Comment on above: Performed By: #### L 501.9520, L100.0100, L500.2500, L501.5200 #### [facility] [address] [place], [address] MCV (RBC) [Entitic vol] 85.2 fL Normal 81-99 [facility] Comment on above: Performed By: #### L 501.9520, L100.0100, L500.2500, L501.5200 #### [facility] [address] [place], [address] Monocytes/100 WBC (Bld) 6.5 % Normal 0-10 [facility] Comment on above: Performed By: #### L 501.9520, L100.0100, L500.2500, L501.5200 #### [facility] [address] [place], [address] Neutrophils/100 WBC (Bld) 49.7 % Normal 47-70 [facility] Comment on above: Performed By: #### L 501.9520, L100.0100, L500.2500, L501.5200 #### [facility] [address] [place], [address] Nucleated RBC (Bld) [#/Vol] 0 10*3/uL Normal 0-5 [facility] Comment on above: Performed By: #### L 501.9520, L100.0100, L500.2500, L501.5200 #### [facility] [address] [place], [address] Platelet mean volume (Bld) [Entitic vol] 10.4 fL Normal 6.2-12.0 [facility] Comment on above: Performed By: #### L 501.9520, L100.0100, L500.2500, L501.5200 #### [facility] [address] [place], [address] Platelets (Bld) [#/Vol] 257 10*3/uL Normal 150-450 [facility] Comment on above: Performed By: #### L 501.9520, L100.0100, L500.2500, L501.5200 #### [facility] [address] [place], [address] RBC (Bld) [#/Vol] 3.64 10*6/uL Low 4.2-5.4 [facility] Comment on above: Performed By: #### L 501.9520, L100.0100, L500.2500, L501.5200 #### [facility] [address] [place], [address] RDW SD 45.7 fl High 35.1-43.9 [facility] Comment on above: Performed By: #### L 501.9520, L100.0100, L500.2500, L501.5200 #### [facility] [address] [place], [address] WBC (Bld) [#/Vol] 8.3 10*3/uL Normal 4.4-11.0 [facility] Comment on above: Performed By: #### L 501.9520, L100.0100, L500.2500, L501.5200 #### [facility] [address] [place], [address] Emergency Department Summary on 06-16-2024 Emergency Department Summary [facility] Medical Records Department [address] [place] [address] Emergency Department Summary 06/16/24 MR#: [id number] Acct: [id number] Name: BETSY MESA Rep #: [id number] : 1995 29 From: Nelson Ulloa DO [...] thyroid and therefore comes in for evaluation [facility] Medical History Anxiety Paresthesias Cervical radiculopathy Cervicalgia [...] to ensure (more content not included)... Normal [facility] Magnesiumon 06-16-2024 Magnesium [Mass/Vol] 2.0 mg/dL Normal 1.6-2.6 [facility] Comment on above: Performed By: #### L 501.9520, L100.0100, L500.2500, L501.5200 #### [facility] [address] [place], [place], [address] Thyroid Stim Hormone (TSH)on 06-16-2024 TSH 0.884 uIU/mL Normal 0.358-3.740 [facility] Comment on above: Performed By: #### L 501.9520, L100.0100, L500.2500, L501.5200 #### [facility] [address] [place], [address] B-HCG [facility] 4 HCG.beta subunit Qn 2327.0 m[IU]/mL High <5.0 [facility] Comment on above: Order Comment: Speci men Type: TISSUE SPECIMEN Ordering Facility: [facility] Address: [address], [place] [address] Result Comment: JALYN TITATIVE HCG NORMAL RANGES Weeks of Gestation (Weeks Since LMP) 3 Weeks (5.8-71.2 mIU/mL) 4 Weeks (9.5-750 mIU/mL) 5 Weeks (217-7138 mIU/mL) 6 Weeks (158-39634 mIU/mL) 7 Weeks (3697-141676 mIU/mL) 8 Weeks (36620-358031 mIU/mL) 9 Weeks (21461-404159 mIU/mL) 10 Weeks (54265-314902 mIU/mL) 12 Weeks (89932-937986 mIU/mL) Referenced to 4th IS of [facility] Performed By: #### S #### [facility] CLIA [id number] [address] [place] [address] OF [facility] CNOVon 05-06-2024 CNOV Office Visit (OBGYWM ) BETSY MESA ([id number]) 1995 F Date Time Provider Department 05/06/24 [...] Last night started bleeding and went to [facility] ED but long wait so went to [place] [facility] and they offered patient to go to [facility] or f/u in office. Patient was d/jose home to f/u today. Having waves of cramping nad passing clots, bleeding heavier than a period. Soaked through pads last night then it slowed and passed more clots. OB History T3 L3 SAB0 IAB0 Ectopic0 Multiple0 Live Births3 Food Processor History LMP: 02/18/2024 (Within Days), Recent Age at Menarche: Age at First : Age at Menopause: Food Processor History Comments: Sexual Activity: Yes; Male Contraception: [...] discussed with the Patient or Patient's Authorized Farm Loan Representative. As applicable, any other physician, advance practice provider, medical student, or other health professional student that will be observing or involved in the sensitive examination for educational or training purposes was discussed with the Patient or Authorized Farm Loan Representative. The Patient or Authorized Farm Loan Representative has agreed to proceed with the sensitive examination. (Sensitive examination includes inspection and/or palpation of the breasts, pelvis, prostate and anorectal regions). EXAM: Wt 212 lb (96.2kg) LMP 02/18/2024 GENERAL: in pain, female in mild distress ABDOMEN: soft, non-tender, and no masses PELVIC: external genitalia normal, normal Bartholin's glands, urethra, Garten's glands, no vulvar lesions, no cervical lesions, [...] p (more content not included)... Normal [facility] SURGICAL PATHOLOGYon CASE REPORT Normal [facility] Comment on above: Order Comment: Speci men Type: TISSUE SPECIMEN Ordering Facility: [facility] Address: [address] [place] [address] Result Comment: Surg [facility] Pathology Report Case: [id number] Authorizing Provider: Leela Currie MD Collected: 05/06/2024 04:56 PM Ordering Location: OB/Gynecology Received: 05/07/2024 12:08 PM Pathologist: Eli Bowen MD Specimen: Products of Conception Performed By: #### S #### [facility] CLIA [id number] [address] [place] [address] [place] CLINICAL HISTORY incomplete spontaneo us Normal [facility] Comment on above: Order Comment: Speci men Type: TISSUE SPECIMEN Ordering Facility: [facility] Address: [address] [place] [address] Performed By: #### S #### [facility] CLIA [id number] [address] [place] [address] OF [facility] FINAL DIAGNOSIS Normal [facility] Comment on above: Order Comment: Speci men Type: TISSUE SPECIMEN Ordering Facility: [facility] Address: [address] [place] [address] Result Comment: A. " Products of conception:" - Products of conception, to include immature chorionic villi. - Decidua and gestational endometrium. Performed By: #### S #### [facility] CLIA [id number] [address] [place] [address] OF [facility] FINAL PERFORMING LAB Normal [facility] Comment on above: Order Comment: Speci men Type: TISSUE SPECIMEN Ordering Facility: [facility] Address: [address] [place] [address] Result Comment: Diag nostic interpretation performed at [facility], [address] [place] [address] CLIA# [id number] Digital Advisor: Jeremiah Lemons M.D. Performed By: #### S #### [facility] CLIA [id number] [address] [place] [address] OF [facility] GROSS DESCRIPTION Normal [facility] Comment on above: Order Comment: Speci men Type: TISSUE SPECIMEN Ordering Facility: [facility] Address: [address] [place] [address] Result Comment: A. P roducts of Conception Received in formalin labeled "products of conception" are multiple irregularly-shaped, purple-steward, soft tissue fragments admixed with blood clot aggregating to 6 x 4.5 x 0.5 cm. There is possible chorionic villi. There are no vesicles or parts. Farm Loan Representative sections are submitted in cassettes A1-A3. DAVINA May 07, 2024 3:45 PM Gross examination performed at [facility], [address] [place] [address] CLIA# [id number] Performed By: #### S #### [facility] CLIA [id number] [address] [place] PREGUon 05-05-2024 HCG ( test) Ql (U) Positive Normal [facility] Comment on above: Performed By: #### U A, PREGU, UAMIC #### [facility] [place] [address] [address] test (u) int Detected Invalid Interpretation Code [facility] Comment on above: Performed By: #### U A, PREGU, UAMIC #### [facility] [place] [address] [address] UAon 05-05-2024 Color (U) Straw Normal [facility] Comment on above: Performed By: #### U A, PREGU, UAMIC #### [facility] [place] [address] [address] Glucose (U) [Mass/Vol] Negative Normal Negative AU LTMAN [facility] Comment on above: Performed By: #### U A, PREGU, UAMIC #### [facility] [place] [address] [address] Ketones Ql (U) Negative Normal Neg-Trace [facility] Comment on above: Performed By: #### U A, PREGU, UAMIC #### [facility] [place] [address] [address] UA Appear Clear Normal [facility] Comment on above: Performed By: #### U A, PREGU, UAMIC #### Za[facility] [place] [address] [address] UA Blood Large Abnormal Neg-Trace [facility] Comment on above: Performed By: #### U A, PREGU, UAMIC #### Za[facility] [place] [address] [id number] UA Leuk Est Negative Normal Negative [facility] Comment on above: Performed By: #### U A, PREGU, UAMIC #### [facility] [place] [address] [id number] UA Nitrite Negative Normal Negative [facility] Comment on above: Performed By: #### U A, PREGU, UAMIC #### Za[facility] [place] [address] [address] UA pH 5.5 Normal 5.0 - 8.0 [facility] Comment on above: Performed By: #### U A, PREGU, UAMIC #### Zaheer [place] [address] [address] UA Protein Negative Normal Negative [facility] Comment on above: Performed By: #### U A, PREGU, UAMIC #### Zaheer [place] [address] [address] UA Spec Grav <=1.005 Abnormal [facility] Comment on above: Performed By: #### U A, PREGU, UAMIC #### [facility] [place] [address] [address] UA Specimen Type Clean Catch Normal [facility] Comment on above: Performed By: #### U A, PREGU, UAMIC #### Za[facility] [place] [address] [address] UA Urobilinogen 0.2 E.U./dL Normal [facility] Comment on above: Performed By: #### U A, PREGU, UAMIC #### Zaheer [place] [address] [address] Urobilinogen (U) [Mass/Vol] Negative Normal Neg-Trace [facility] Comment on above: Performed By: #### U A, PREGU, UAMIC #### Za[facility] [place] [address] [address] UAMICon 05-05-2024 UA Bacteria Negative Normal Negative [facility] Comment on above: Performed By: #### U A, PREGU, UAMIC #### Za[facility] [place] [address] [address] UA RBC 25-50 Abnormal 0-2 [facility] Comment on above: Performed By: #### U A, PREGU, UAMIC #### Za[facility] [place] [address] [address] UA Squam Epithelial 0-2 Normal 0-20 [facility] Comment on above: Performed By: #### U A, PREGU, UAMIC #### [facility] [place] [address] [place], [place] [address] UA WBC 0-2 Normal 0-5 [facility] Comment on above: Performed By: #### U A, PREGU, UAMIC #### [facility] [place] [address] [place], [place] [address] CNPNon 05-02-2024 CNPN Telephone (OBGYWM) BETSY MESA ([id number]) 1995 F Date Time Provider Department 05/02/24 [...] by IRMA LIN on 05/07/24 Normal [facility] B-HCG SerPl-aCncon 4 HCG.beta subunit Qn 4890.0 m[IU]/mL High <5.0 [facility] Comment on above: Order Comment: Speci men Type: TISSUE SPECIMEN Ordering Facility: [facility] Address: [address] [place] [address] Result Comment: JALYN TITATIVE HCG NORMAL RANGES Weeks of Gestation (Weeks Since LMP) 3 Weeks (5.8-71.2 mIU/mL) 4 Weeks (9.5-750 mIU/mL) 5 Weeks (217-7138 mIU/mL) 6 Weeks (158-03978 mIU/mL) 7 Weeks (3697-687681 mIU/mL) 8 Weeks (12729-021471 mIU/mL) 9 Weeks (67534-998180 mIU/mL) 10 Weeks (24777-286744 mIU/mL) 12 Weeks (60716-211489 mIU/mL) Referenced to 4th IS of [facility] Performed By: #### S #### [facility] CLIA [id number] [address] [place] [address] OF [facility] CNOVon 05-01-2024 CNOV Office Visit (OBGYWM ) BONITABETSY ([id number]) 1995 F Date Time Provider Department 05/01/24 [...] she started spotting and cramping this morning. 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 Normal [facility] US Pelvison 05-01-2024 Indication viability, spotting [...] By: Keshawn Moscoso M.D. MATERNAL MEDICINE [facility] Rad[facility] Study observation (narrative) [facility] B-HCG SerPl-aCncon 4 HCG.beta subunit Qn 5643.0 m[IU]/mL High <5.0 [facility] Comment on above: Order Comment: Speci men Type: TISSUE SPECIMEN Ordering Facility: [facility] Address: [address] [place] [address] Result Comment: JALYN TITATIVE HCG NORMAL RANGES Weeks of Gestation (Weeks Since LMP) 3 Weeks (5.8-71.2 mIU/mL) 4 Weeks (9.5-750 mIU/mL) 5 Weeks (217-7138 mIU/mL) 6 Weeks (158-64363 mIU/mL) 7 Weeks (3697-000272 mIU/mL) 8 Weeks (42436-855201 mIU/mL) 9 Weeks (56408-296875 mIU/mL) 10 Weeks (90008-852950 mIU/mL) 12 Weeks (70831-611547 mIU/mL) Referenced to 4th IS of [facility] Performed By: #### S #### [facility] CLIA [id number] [address] [place] [address] [place] [address] [place] Bacteria Ur Culton 4 Bacteria identified Cx Nom (U) ORGANISM ID: 1 50,000-<100,000 CFU/ml Normal urogenital marilu Normal [facility] Comment on above: Performed By: #### S #### [facility] CLIA [id number] [address] [place] [address] [place] CBC panel Auto (Bld)on 04-28 Erythrocyte distribution width (RBC) [Ratio] 16.9 % High 11.5 - 15.0 % [facility] Hematocrit (Bld) [Volume fraction] 35.1 % Low 36.0 - 46.0 % [facility] Hemoglobin (Bld) [Mass/Vol] 11.8 g/dL 11.5 - 15.5 g/dL [facility] Interpretation and review of laboratory results Abnormal [facility] MCH (RBC) [Entitic mass] 28.4 pg 26.0 - 34.0 pg [facility] MCHC (RBC) [Mass/Vol] 33.6 g/dL 30.5 - 36.0 g/dL [facility] MCV (RBC) [Entitic vol] 84.6 fL 80.0 - 100.0 fL [facility] Nucleated RBC (Bld) [#/Vol] NINF [facility] Platelet mean volume (Bld) [Entitic vol] 11.4 fL 9.0 - 12.7 fL [facility] Platelets (Bld) [#/Vol] 176 10*3/uL [facility] RBC (Bld) [#/Vol] 4.15 10*6/uL 3.90 - 5.2 0 m/uL [facility] WBC (Bld) [#/Vol] 6.68 10*3/uL [facility] Erythrocyte distribution width (RBC) [Ratio] 16.9 % High 11.5-15.0 [facility] Comment on above: Order Comment: Speci men Type: TISSUE SPECIMEN Ordering Facility: [facility] Address: [address] [place] [address] Performed By: #### S #### [facility] CLIA [id number] [address] [place] [id number] [place] [address] [place] Hematocrit (Bld) [Volume fraction] 35.1 % Low 36.0-46.0 [facility] Comment on above: Order Comment: Speci men Type: TISSUE SPECIMEN Ordering Facility: [facility] Address: [address] [place] [address] Performed By: #### S #### [facility] CLIA [id number] [address] [place] [address] [place] Hemoglobin (Bld) [Mass/Vol] 11.8 g/dL Normal 11.5-15.5 [facility] Comment on above: Order Comment: Speci men Type: TISSUE SPECIMEN Ordering Facility: [facility] Address: [address] [place] [address] Performed By: #### S #### [facility] CLIA [id number] [address] [place] [address] [place] MCH (RBC) [Entitic mass] 28.4 pg Normal 26.0-34.0 [facility] Comment on above: Order Comment: Speci men Type: TISSUE SPECIMEN Ordering Facility: [facility] Address: [address] [place] [address] Performed By: #### S #### [facility] CLIA [id number] [address] [place] [address] [place] MCHC (RBC) [Mass/Vol] 33.6 g/dL Normal 30.5-36.0 [facility] Comment on above: Order Comment: Speci men Type: TISSUE SPECIMEN Ordering Facility: [facility] Address: [address] [place] [address] Performed By: #### S #### [facility] CLIA [id number] [address] [place] [address] [place] MCV (RBC) [Entitic vol] 84.6 fL Normal 80.0-100.0 [facility] Comment on above: Order Comment: Speci men Type: TISSUE SPECIMEN Ordering Facility: [facility] Address: [address] [place] [address] Performed By: #### S #### [facility] CLIA [id number] [address] [place] [address] [place] Nucleated RBC (Bld) [#/Vol] 10*3/uL Normal <0.01 [facility] Comment on above: Order Comment: Speci men Type: TISSUE SPECIMEN Ordering Facility: [facility] Address: [address] [place] [address] Performed By: #### S #### [facility] CLIA [id number] [address] [place] [address] [place] Platelet mean volume (Bld) [Entitic vol] 11.4 fL Normal 9.0-12.7 [facility] Comment on above: Order Comment: Speci men Type: TISSUE SPECIMEN Ordering Facility: [facility] Address: [address] [place] [address] Performed By: #### S #### [facility] CLIA [id number] [address] [place] [address] [place] Platelets (Bld) [#/Vol] 176 10*3/uL Normal 150-400 [facility] Comment on above: Order Comment: Speci men Type: TISSUE SPECIMEN Ordering Facility: [facility] Address: [address] [place] [address] Performed By: #### S #### [facility] CLIA [id number] [address] [place] [address] [place] RBC (Bld) [#/Vol] 4.15 10*6/uL Normal 3.90-5.20 [facility] Comment on above: Order Comment: Speci men Type: TISSUE SPECIMEN Ordering Facility: [facility] Address: [address] [place] [address] Performed By: #### S #### [facility] CLIA [id number] [address] [place] [address] [place] WBC (Bld) [#/Vol] 6.68 10*3/uL Normal 3.70-11.00 [facility] Comment on above: Order Comment: Speci men Type: TISSUE SPECIMEN Ordering Facility: [facility] Address: [address] [place] [address] Performed By: #### S #### [facility] CLIA [id number] [address] [place] [address] [place] [address] [place] CNOVon 04-28-2024 CNOV Office Visit (OBGYWM ) BONITABETSY ([id number]) 1995 F Date Time Provider Department 04/28/24 11:00 AM SUSHIL VILLANUEVA OBGYWM During your visit today, we recorded the following information about you: Blood pressure Weight Height Last Period 11668 97.8 kg 1.784 m 02/18/24 Sushil Villanueva, SOFTWARE WRITER.SAS ETL DEVELOPER 04/28/2024 12:59 PM Signed Betsy Levya is [...] L3 SAB0 IAB0 Ectopic0 Multiple0 Live Births3 Food Processor History LMP: 02/18/2024 (Within Days), Having periods Age at Menarche: Age at First : Age at Menopause: 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 As applicable, any other physician, advance practice provider, medical student, or other health professional student that will be observing or involved in the sensitive examination for educational or training purposes was discussed with the Patient or Authorized Farm Loan Representative. The Patient or Authorized Farm Loan Representative has agreed to proceed with the sensitive [...] - ICD9: V22.1, ICD10: Z34.91 - POC ASBESTOS SIDING INSTALLER ULTRASOUND - HCG QUANTITATIVE - COMPLETE BLOOD [...] Date Reviewed: 04/28/2024 Reviewed by: Sushil Villanueva APRN.SAS ETL DEVELOPER - Fully Assessed Reason for Visit: Missed menses [Other] Primary Visit Diagnosis: with uncertain viability, single or unspecified fetus [O36.80X0] Other Visit Diagnosis: with uncertain dates in first trimester [Z34.91] Order(s):POC ASBESTOS SIDING INSTALLER ULTRASOUND [[id number]] Order #: [id number]. (more content not included)... Normal [facility] HbA1c (Bld)on 04-28-2024 Average glucose Estimated from glycated hemoglobin (Bld) [Mass/Vol] 120 mg/dL Normal [facility] Comment on above: Order Comment: Jessica rojo Type: BLOOD SPECIMEN Ordering Facility: [facility] Address: [address] [place] [address] Result Comment: eAG: (Estimated average glucose) is a calculated value from HgbA1c and is fulfillment representative of the average blood glucose level in the last 2-3 month period. Performed By: #### 5 5454-3 #### [facility] CLIA [id number] [address] [place], [place] [address] [address] [place] HbA1c (Bld) [Mass fraction] 5.8 % High 4.3-5.6 [facility] Comment on above: Order Comment: Jessica rojo Type: BLOOD SPECIMEN Ordering Facility: [facility] Address: [address] [place] [address] Result Comment: Amer [place] Diabetes Association guidelines indicate that patients with HgbA1c in the range 5.7-6.4% are at increased risk for development of diabetes, and intervention by lifestyle modification may be beneficial. HgbA1c greater or equal to 6.5% is considered diagnostic of diabetes. Performed By: #### 5 5454-3 #### [facility] CLIA [id number] [address] [place] [address] [place] POC ASBESTOS SIDING INSTALLER ULTRASOUNDon 04-28-20 24 Indication Viability; confirm cardiac [...] By: Sushil Villanueva NP MATERNAL MEDICINE [facility] Rad[facility] Study observation (narrative) [facility] TYPE + SCREEN PRENATALon ABO O Normal [facility] Comment on above: Order Comment: Speci men Type: BLOOD SPECIMEN Ordering Facility: [facility] Address: [address] [place] [address] Performed By: #### T SPN #### [facility] CLIA [id number] [address] [place] [address] [place] Rh Nom (Bld) Positive Normal [facility] Comment on above: Order Comment: Speci men Type: BLOOD SPECIMEN Ordering Facility: [facility] Address: [address] [place] [address] Performed By: #### T SPN #### [facility] CLIA [id number] [address] [place] [address] [place] TYPE AND SCREEN EXPIRATION 05/01/2024 23:59 Normal [facility] Comment on above: Order Comment: Speci men Type: BLOOD SPECIMEN Ordering Facility: [facility] Address: [address] [place] [address] Performed By: #### T SPN #### [facility] CLIA [id number] [address] [place] [address] [place] [address] [place] [facility] A1Con 02-20-2024 Glucose [Mass/Vol] 137 mg/dL Normal [facility] ([place]) Comment on above: Result Comment: Sarah mated Average Glucose calculated by equation ((28.7xA1C)-46.7) Estimated average glucose (eAG) is a calculated value from Hemoglobin A1C and is fulfillment representative of the average blood glucose level in the last 2-3 month period. Normal range: less than 114 mg/dL Performed By: #### N GPCR1, CTPCR #### [place] [address] HbA1c (Bld) [Mass fraction] 6.4 % High 4.0-6.0 [facility] ([place]) Comment on above: Performed By: #### N GPCR1, CTPCR #### [place] [address] FT3on 02-20-2024 Free T3 [Mass/Vol] 3.01 pg/mL Normal 2.30-4.20 [facility] ([place]) Comment on above: Performed By: #### F T4, FT3 #### [place] [address] FT4on 02-20-2024 Free T4 [Mass/Vol] 1.02 ng/dL Normal 0.89-1.76 [facility] ([place]) Comment on above: Result Comment: No te - New Reference Range in effect 20 Performed By: #### F T4, FT3 #### [place] [address] .Auto Diffon 02-19-2024 Basophil, Absolute 0.0 10 3/mcL Normal 0.0-0.3 [facility] ([place]) Comment on above: Performed By: #### T SH, CBC, A1C, FE, ANEU, FERR, ADIFF, CMP, GFR, MG #### [address] [address] Basophils/100 WBC (Bld) 0.4 % Normal 0.0-2.5 [facility] ([place]) Comment on above: Performed By: #### T SH, CBC, A1C, FE, ANEU, FERR, ADIFF, CMP, GFR, MG #### [address] [address] Eosinophil, Absolute 0.2 10 3/mcL Normal 0.0-0.7 [facility] ([place]) Comment on above: Performed By: #### T SH, CBC, A1C, FE, ANEU, FERR, ADIFF, CMP, GFR, MG #### [address] [address] Eosinophils/100 WBC (Bld) 2.7 % Normal 0.0-6.0 [facility] ([place]) Comment on above: Performed By: #### T SH, CBC, A1C, FE, ANEU, FERR, ADIFF, CMP, GFR, MG #### [address] [address] Lymphocyte, Absolute 2.1 10 3/mcL Normal 0.9-4.3 [facility] ([place]) Comment on above: Performed By: #### T SH, CBC, A1C, FE, ANEU, FERR, ADIFF, CMP, GFR, MG #### [address] [address] Lymphocytes/100 WBC (Bld) 30.6 % Normal 20.0-40.0 [facility] ([place]) Comment on above: Performed By: #### T SH, CBC, A1C, FE, ANEU, FERR, ADIFF, CMP, GFR, MG #### [address] [address] Monocyte, Absolute 0.4 10 3/mcL Normal 0.1-1.4 [facility] ([place]) Comment on above: Performed By: #### T SH, CBC, A1C, FE, ANEU, FERR, ADIFF, CMP, GFR, MG #### [address] [address] Monocytes/100 WBC (Bld) 5.7 % Normal 2.0-13.0 [facility] ([place]) Comment on above: Performed By: #### T SH, CBC, A1C, FE, ANEU, FERR, ADIFF, CMP, GFR, MG #### [address] [address] Neutrophils/100 WBC (Bld) 60.6 % Normal 50.0-75.0 [facility] ([place]) Comment on above: Performed By: #### T SH, CBC, A1C, FE, ANEU, FERR, ADIFF, CMP, GFR, MG #### [address] [address] .GFRon 02-19-2024 GFR >60 Normal [facility] ([place]) Comment on above: Result Comment: GFR Population [...] Performed By: #### N GPCR1, CTPCR #### [address] [address] GFR Non- >60 Normal [facility] ([place]) Comment on above: Result Comment: GFR Population [...] Performed By: #### N GPCR1, CTPCR #### [place] [address] .NEUABSon 02-19-2024 Neutrophil, Absolute 4.1 10 3/mcL Normal 2.3-8.1 [facility] ([place]) Comment on above: Performed By: #### T SH, CBC, A1C, FE, ANEU, FERR, ADIFF, CMP, GFR, MG #### [place] [address] CBCon 02-19-2024 Erythrocyte distribution width (RBC) [Ratio] 17.6 % High 11.5-15.5 [facility] ([place]) Comment on above: Performed By: #### T SH, CBC, A1C, FE, ANEU, FERR, ADIFF, CMP, GFR, MG #### [place] [address] Hematocrit (Bld) [Volume fraction] 35.4 % Normal 34.0-46.0 [facility] ([place]) Comment on above: Performed By: #### T SH, CBC, A1C, FE, ANEU, FERR, ADIFF, CMP, GFR, MG #### [place] [address] Hgb 11.3 G/dL Low 12.0-16.0 [facility] ([place]) Comment on above: Performed By: #### T SH, CBC, A1C, FE, ANEU, FERR, ADIFF, CMP, GFR, MG #### [place] [address] MCH (RBC) [Entitic mass] 26.5 pg Low 27.0-33.0 [facility] ([place]) Comment on above: Performed By: #### T SH, CBC, A1C, FE, ANEU, FERR, ADIFF, CMP, GFR, MG #### [place] [address] MCHC 32.0 G/dL Normal 32.0-36.0 [facility] ([place]) Comment on above: Performed By: #### T SH, CBC, A1C, FE, ANEU, FERR, ADIFF, CMP, GFR, MG #### [place] [address] MCV (RBC) [Entitic vol] 82.9 fL Normal 80.0-99.0 [facility] ([place]) Comment on above: Performed By: #### T SH, CBC, A1C, FE, ANEU, FERR, ADIFF, CMP, GFR, MG #### [place] [address] Platelet 205 10 3/mcL Normal 150-450 [facility] ([place]) Comment on above: Performed By: #### T SH, CBC, A1C, FE, ANEU, FERR, ADIFF, CMP, GFR, MG #### [place] [address] Platelet mean volume (Bld) [Entitic vol] 9.5 fL Normal 6.6-10.5 [facility] ([place]) Comment on above: Performed By: #### T SH, CBC, A1C, FE, ANEU, FERR, ADIFF, CMP, GFR, MG #### [place] [address] RBC 4.27 10 6/mcL Normal 4.10-5.30 [facility] ([place]) Comment on above: Performed By: #### T SH, CBC, A1C, FE, ANEU, FERR, ADIFF, CMP, GFR, MG #### [place] [address] WBC 6.8 10 3/mcL Normal 4.5-10.8 [facility] ([place]) Comment on above: Performed By: #### T SH, CBC, A1C, FE, ANEU, FERR, ADIFF, CMP, GFR, MG #### [place] [address] CMPon 02-19-2024 Albumin Level 3.8 G/dL Normal 3.2-4.8 [facility] ([place]) Comment on above: Performed By: #### N GPCR1, CTPCR #### [address] [address] Albumin/Globulin [Mass ratio] 1.2 {ratio} Normal 0.9-1.6 [facility] ([place]) Comment on above: Performed By: #### N GPCR1, CTPCR #### [address] [address] ALP [Catalytic activity/Vol] 63 U/L Normal 38-126 [facility] ([place]) Comment on above: Performed By: #### N GPCR1, CTPCR #### [place] [id number] ALT [Catalytic activity/Vol] 17 U/L Normal 10-49 [facility] ([place]) Comment on above: Performed By: #### N GPCR1, CTPCR #### [place] [id number] AST [Catalytic activity/Vol] 14 U/L Normal 8-34 [facility] ([place]) Comment on above: Performed By: #### N GPCR1, CTPCR #### [place] [id number] Bili Total 0.30 mg/dL Normal 0.20-1.20 [facility] ([place]) Comment on above: Result Comment: Use of this assay is not recommended for patients undergoing treatment with eltrombopag due to the potential for falsely elevated results. Performed By: #### N GPCR1, CTPCR #### [place] [id number] BUN/Creatinine Ratio 14.3 ratio Normal 10.0-22.0 [facility] ([place]) Comment on above: Performed By: #### N GPCR1, CTPCR #### [place] [id number] Calcium [Mass/Vol] 9.9 mg/dL Normal 8.7-10.4 [facility] ([place]) Comment on above: Performed By: #### N GPCR1, CTPCR #### [place] [id number] Chloride [Moles/Vol] 108 mmol/L Normal 98-110 [facility] ([place]) Comment on above: Performed By: #### N GPCR1, CTPCR #### [address] [address] CO2 [Moles/Vol] 28 mmol/L Normal 22-32 [facility] ([place]) Comment on above: Performed By: #### N GPCR1, CTPCR #### [address] [address] Creatinine [Mass/Vol] 0.70 mg/dL Normal 0.50-1.20 [facility] ([place]) Comment on above: Performed By: #### N GPCR1, CTPCR #### [address] [address] Electrolyte Balance 3.0 mEq/L Low 4.0-15.0 [facility] ([place]) Comment on above: Performed By: #### N GPCR1, CTPCR #### [address] [address] Globulin 3.3 G/dL Normal 1.5-3.8 [facility] ([place]) Comment on above: Performed By: #### N GPCR1, CTPCR #### [address] [address] Glucose [Mass/Vol] 94 mg/dL Normal 70-110 [facility] ([place]) Comment on above: Performed By: #### N GPCR1, CTPCR #### [address] [address] Potassium [Moles/Vol] 4.3 mmol/L Normal 3.5-5.0 [facility] ([place]) Comment on above: Performed By: #### N GPCR1, CTPCR #### [address] [address] Sodium [Moles/Vol] 139 mmol/L Normal 136-145 [facility] ([place]) Comment on above: Performed By: #### N GPCR1, CTPCR #### [address] [address] Total Protein 7.1 G/dL Normal 5.7-8.2 [facility] ([place]) Comment on above: Result Comment: No te - New Reference Range in effect 20 Performed By: #### N GPCR1, CTPCR #### [place] [address] Urea nitrogen [Mass/Vol] 10.0 mg/dL Normal 8.0-22.0 [facility] ([place]) Comment on above: Performed By: #### N GPCR1, CTPCR #### [place] [id number] FEon 02-19-2024 Iron [Mass/Vol] 36 ug/dL Low 50-170 [facility] ([place]) Comment on above: Performed By: #### T SH, CBC, A1C, FE, ANEU, FERR, ADIFF, CMP, GFR, MG #### [place] [id number] Michael 02-19-2024 Ferritin [Mass/Vol] 2.7 ng/mL Low 8.0-252.0 [facility] ([place]) Comment on above: Performed By: #### T SH, CBC, A1C, FE, ANEU, FERR, ADIFF, CMP, GFR, MG #### [place] [address] LABORATORYOrdered By: SYSTEM SYSTEM on 02-19-2024 Albumin [...] calculated value from Hemoglobin A1C and is fulfillment representative of the average blood glucose level [...] 02-19-2024 Magnesium [Mass/Vol] 1.9 mg/dL Normal 1.6-2.4 [facility] ([place]) Comment on above: Performed By: #### N GPCR1, CTPCR #### [place] [address] TSHon 02-19-2024 TSH 0.121 mIU/mL Low 0.550-4.780 [facility] ([place]) Comment on above: Result Comment: No te - New Reference Range in effect 20 Performed By: #### N GPCR1, CTPCR #### [place] [address] CTPCRon 02-07-2024 C. trachomatis Interp Normal See CT Interp N [facility] ([place]) Comment on above: Result Comment: C. t rachomatis DNA not detected. Specimen is presumptive negative for C. trachomatis. A negative result does not preclude C. trachomatis infection because results depend on adequate specimen collection, absence of inhibitors, and sufficient DNA to be detected. See CT Interp N Performed By: #### N GPCR1, CTPCR #### [place] [address] C.trachomatis PCR Negative Normal Negative [facility] ([place]) Comment on above: Result Comment: Mole cular (PCR) assay performed on the [employer]era 4800 system. Performed By: #### N GPCR1, CTPCR #### [place] [id number] Chlam Source Cervix Normal [facility] ([place]) Comment on above: Performed By: #### N GPCR1, CTPCR #### [place] [address] [id number] 02-07-2024 GC PCR Source Cervix Normal [facility] ([place]) Comment on above: Performed By: #### N GPCR1, CTPCR #### [place] [address] N. gonorrhoeae (PCR) Negative Normal Negative [facility] ([place]) Comment on above: Result Comment: Mole cular (PCR) assay performed on the [employer]era 4800 System. Performed By: #### N GPCR1, CTPCR #### [place] [address] N. gonorrhoeae Interp Normal See NG Interp N [facility] ([place]) Comment on above: Result Comment: N. g onorrhoeae DNA not detected. Specimen is presumptive negative for N. gonorrhoeae. A negative result does not preclude Neisseria gonorrhoeae infection because results depend on adequate specimen collection, absence of inhibitors, and sufficient DNA to be detected. See NG Interp N Performed By: #### N GPCR1, CTPCR #### [place] [address] CTPCRon 01-02-2024 C. trachomatis Interp Normal [facility] ([place]) Comment on above: Result Comment: C. t rachomatis DNA not detected. Specimen is presumptive negative for C. trachomatis. A negative result does not preclude C. trachomatis infection because results depend on adequate specimen collection, absence of inhibitors, and sufficient DNA to be detected. See CT Interp N Performed By: #### C TPCR #### [place] [address] C.trachomatis PCR Negative Normal Negative [facility] ([place]) Comment on above: Result Comment: Mole cular (PCR) assay performed on the [employer] 4800 system. Performed By: #### C TPCR #### [place] [address] Chlam Source Vaginal Normal [facility] ([place]) Comment on above: Performed By: #### C TPCR #### [place] [address] [id number] 01-02-2024 GC PCR Source Vaginal Normal [facility] ([place]) Comment on above: Performed By: #### N GPCR1, CTPCR #### [place] [address] N. gonorrhoeae (PCR) Negative Normal Negative [facility] ([place]) Comment on above: Result Comment: Mole cular (PCR) assay performed on the [employer] 4800 System. Performed By: #### N GPCR1, CTPCR #### [place] [address] N. gonorrhoeae Interp Normal See NG Interp N [facility] ([place]) Comment on above: Result Comment: N. g onorrhoeae DNA not detected. Specimen is presumptive negative for N. gonorrhoeae. A negative result does not preclude Neisseria gonorrhoeae infection because results depend on adequate specimen collection, absence of inhibitors, and sufficient DNA to be detected. See NG Interp N Performed By: #### N GPCR1, CTPCR #### [place] [id number] [place] [address] CASE MANAGEMon 12-11-2023 CASE MANAGEM HNO ID: [id number] Author: ALLY LEHMAN RN Service: ? Author [...] Primary Care Physician Name/Phone: Dr. Marcelo Isbell [phone] Additional Information: Patient being discharged home today with self-care. S.O. to transport. No TCC needs. SIGNATURE: Ally Lehman RN PATIENT NAME: Betsy Mesa DATE: December 11, 2023 TIME: 3:07 PM CONTACT #: [phone] [facility] 12-11-2023 CN HNO ID: [id number] Author: LORETA FROST MD Service: Hospital Medicine [...] week Patient/Parents to call for appointment?: Yes JasbirJohanaDO callum [phone] [address] PCP Requested Referral Follow-Up Appointment For right-sided facial numbness and headache When: In 1 week Patient/Parents to call for appointment?: Yes Cecil Ramirez MD [phone] [facility] [address] PCP Requested Referral Additional Provider to Provider Information: Treatment Team: Attending Provider: Loreta Frost MD Primary Service: [facility] Consulting: Cecil Ramirez MD Transitions of Care Critical Issues: SPECIALIST FOLLOW-UP: Neurology if numbness persists GIL MEDICATION CHANGES: Amlodipine 5 mg p.o. daily, metformin 500 mg p.o. every morning LABS AND PROCEDURES PENDING AT DISCHARGE: No pending results. FOLLOW-UP APPOINTMENTS ALREADY SCHEDULED WITH A [facility] PROVIDER: No future appointments. ALLERGIES Allergen [...] Commonly k (more content not included)... Normal [facility] CONSULTon 12-11-2023 CONSULT HNO ID: [id number] Author: ALICIA ARELLANO MD Service: Neurology General [...] as needed for Pain.Disp: 30 tabletRfl: 0 Wpsbeacu-Cu-Mfq-Fe-FA ( VITAMIN) tabTake 1 tablet by mouth [...] (Oral) Resp 18 Ht 177.8 cm (5' 10") Wt 104.3 kg (230 lb) LMP 06/20/2023 [...] exam revea (more content not included)... Normal [facility] ALLIED HEALTHon 12-10-2023 ALLIED HEALTH HNO ID: [id number] Author: CHARLIE WESTON RT(R) Service: Radiology Author [...] PATIENT PRESENTS WITH AN IMPLANTABLE OR ATTACHED SENIOR DATA WAREHOUSE ARCHITECT: No ALLERGIES: Reviewed and unchanged CONTRAST ALLERGY: NO. EXAM: MRI - CONTRAST TYPE: GROUP II PERIPHERAL IV DATA: Inpatient - refer to LDA documentation RADIOLOGY DEPARTMENT: MR; Exam(s) Completed: Head: Routine Brain SIGNATURE: Charlie SundayRT(R) PATIENT NAME: Betsy Mesa DATE: December 10, 2023 TIME: 9:13 PM Normal [facility] Basic metabolic 2000 panelon 12-10-2023 Anion gap [Moles/Vol] 15 mmol/L Normal 9-18 [facility] Comment on above: Order Comment: Speci men Type: BLOOD SPECIMEN Ordering Facility: [facility] Address: [address] [place] [address] Performed By: #### 2 4321-2, 01767-6 #### [facility] CLIA [id number] [address] [place] [address] [place] Calcium [Mass/Vol] 8.9 mg/dL Normal 8.5-10.2 [facility] Comment on above: Order Comment: Speci men Type: BLOOD SPECIMEN Ordering Facility: [facility] Address: [address] [place] [address] Performed By: #### 2 4321-2, 19286-2 #### [facility] CLIA [id number] [address] [place] [address] [place] Chloride [Moles/Vol] 106 mmol/L High 97-105 [facility] Comment on above: Order Comment: Speci men Type: BLOOD SPECIMEN Ordering Facility: [facility] Address: [address] [place] [address] Performed By: #### 2 4321-2, 44332-7 #### [facility] CLIA [id number] [address] [place] CO2 [Moles/Vol] 19 mmol/L Low 22-30 [facility] Comment on above: Order Comment: Speci men Type: BLOOD SPECIMEN Ordering Facility: [facility] Address: [address] [place] [address] Performed By: #### 2 432-2, 65323-5 #### [facility] CLIA [id number] [address] [place] Creatinine [Mass/Vol] 0.69 mg/dL Normal 0.58-0.96 [facility] Comment on above: Order Comment: Speci men Type: BLOOD SPECIMEN Ordering Facility: [facility] Address: [address] [place] [address] Performed By: #### 2 432-2, 16945-1 #### [facility] CLIA [id number] [address] Creatinine and Glomerular filtration rate.predicted panel (S/P/Bld) 121 mL/min/1.73m??? Normal >=60 [facility] Comment on above: Order Comment: Speci men Type: BLOOD SPECIMEN Ordering Facility: [facility] Address: [address] [place] [address] Result Comment: Sarah mated Glomerular Filtration Rate [...] actual GFR. Performed By: #### 2 4321-2, 67635-5 #### [facility] CLIA [id number] [address] [place] [address] [place] Glucose [Mass/Vol] 80 mg/dL Normal 74-99 [facility] Comment on above: Order Comment: Jessica rojo Type: BLOOD SPECIMEN Ordering Facility: [facility] Address: [address] [place] [address] Result Comment: The [place] Diabetes Association (ADA) provides guidance for cutoff [...] Standards of Medical Care in Diabetes 2016, [place] [employer] Association. Diabetes Care. 2016.39(Suppl 1). Performed By: #### 2 4321-2, 44019-9 #### [facility] CLIA [id number] [address] [place] [address] [place] Potassium [Moles/Vol] 3.5 mmol/L Low 3.7-5.1 [facility] Comment on above: Order Comment: Jessica rojo Type: BLOOD SPECIMEN Ordering Facility: [facility] Address: [address] [place] [address] Performed By: #### 2 432-2, 34696-2 #### [facility] CLIA [id number] [address] [place] [address] [place] Sodium [Moles/Vol] 140 mmol/L Normal 136-144 [facility] Comment on above: Order Comment: Jessica rojo Type: BLOOD SPECIMEN Ordering Facility: [facility] Address: [address] [place] [address] Performed By: #### 2 4321-2, 84425-7 #### [facility] CLIA [id number] [address] [place] [address] [place] Urea nitrogen [Mass/Vol] 8 mg/dL Normal 7-21 [facility] Comment on above: Order Comment: Speci men Type: BLOOD SPECIMEN Ordering Facility: [facility] Address: [facility] [place] [address] Performed By: #### 2 4321-2, 61266-6 #### [facility] CLIA [id number] [address] [place] [id number] [place] [facility] CASE MGT INIT MALISSAon 2023 CASE MGT INIT ASSES HNO ID: [id number] Author: ALLY LEHMAN RN Service: ? Author Type: Registered Nurse Type: Care Mgt Initial Assessment Filed: 12/10/2023 15:00 Note Text: CARE MANAGEMENT: ASSESSMENT AND DISCHARGE PLAN SERVICE DATE: December 10, 2023 SERVICE TIME: 8 PCP: Marcelo Isbell DO Primary Contact: Extended Emergency Contact Information Primary Emergency Contact: Cooper Baca Mobile Relation: Significant other Admission Status: Observation Insurance Provider: [facility] MEDICAID OF [place] Discharge Planning requested by: Per Department Practice Potential Transition Plans No Services Indicated;Home Advance Directives Current Advance Directive: None Birth Certificate Clerk Attempted to Assist with AD Completion: Yes [...] Be able to go home, Independent living [place] of Choice Explained: [place] of Choice Given: No Reason Not Given: [...] December 10, 2023 TIME: 2:58 PM Normal [facility] HCG Preg Ur Qlon 12-10-2023 HCG ( test) Ql (U) Negative Normal Negative [facility] Comment on above: Order Comment: Speci men Type: URINE SPECIMEN Ordering Facility: [facility] Address: [address] [place] [address] Result Comment: This test is intended to aid in the early detection of . Very dilute urine samples, as indicated by a low specific gravity, may not contain fulfillment representative levels of hCG. This test detects [...] . Performed By: #### 2 106-3 #### [facility] CLIA [id number] [address] STATES OF [facility] HISTORY PHYSICALon 4 HISTORY PHYSICAL HNO ID: [id number] Author: ARJUN DICKSON DO Service: Hospital Medicine Author Type: Physician Type: H&P Filed: 12/09/2023 23:52 Note Text: DEPARTMENT OF HOSPITAL MEDICINE HISTORY AND PHYSICAL EXAM SERVICE DATE: 12/09/2023 SERVICE TIME: 11:18 PM Primary Care Physician: No Pcp, SOFTWARE WRITER NIGHT AND WEEKEND COVERAGE: [place] COVERAGE: From 7am - 7pm, please call sound After 7pm, please call cross cover pager #[phone] Subjective CHIEF COMPLAINT: Right facial numbness HPI: [...] for Pain., Disp: 30 tablet, Rfl: 0 Lsnfekkv-Zd-Lyv-Fe-FA ( VITAMIN) tab, Take 1 tablet by [...] (Src) 98.7 (Oral) Resp 18 Ht 5' 10" (1.78m) Wt 230 lb (104.3kg) SpO2 97% [...] 12/09/23 17:36 (more content not included)... Normal [facility] HbA1c (Bld)on 12-10-2023 Average glucose Estimated from glycated hemoglobin (Bld) [Mass/Vol] 134 mg/dL Normal [facility] Comment on above: Order Comment: Jessica rojo Type: BLOOD SPECIMEN Ordering Facility: [facility] Address: [address] [place] [address] Result Comment: eAG: (Estimated average glucose) is a calculated value from HgbA1c and is fulfillment representative of the average blood glucose level in the last 2-3 month period. Performed By: #### 2 4321-2, 42588-7 #### [facility] CLIA [id number] [address] STATES OF [facility] HbA1c (Bld) [Mass fraction] 6.3 % High 4.3-5.6 [facility] Comment on above: Order Comment: Jessica rojo Type: BLOOD SPECIMEN Ordering Facility: [facility] Address: [address] [place] [address] Result Comment: [place] Diabetes Association guidelines indicate that patients with HgbA1c in the range 5.7-6.4% are at increased risk for development of diabetes, and intervention by lifestyle modification may be beneficial. HgbA1c greater or equal to 6.5% is considered diagnostic of diabetes. Performed By: #### 2 4321-2, 99016-0 #### [facility] CLIA [id number] [address] [place] [address] [place] Lipid 1996 panelon 4 Cholesterol [Mass/Vol] 135 mg/dL Normal <200 [facility] Comment on above: Order Comment: Jessica rojo Type: BLOOD SPECIMEN Ordering Facility: [facility] Address: [address] [place] [address] Result Comment: <200 mg/dL, Desirable 200-239 mg/dL, Borderline high >239 mg/dL, High Performed By: #### 2 4321-2, 11582-6 #### [facility] CLIA [id number] [address] Cholesterol in HDL [Mass/Vol] 39 mg/dL Low >39 [facility] Comment on above: Order Comment: Jessica rojo Type: BLOOD SPECIMEN Ordering Facility: [facility] Address: [address] [place] [address] Result Comment: 40-5 9 mg/dL, Acceptable >59 mg/dL, High: Negative risk factor for coronary heart disease <40 mg/dL, Low: Positive risk factor for coronary heart disease Performed By: #### 2 4321-2, 61640-7 #### [facility] CLIA [id number] [address] Cholesterol in LDL [Mass/Vol] 80 mg/dL Normal <100 [facility] Comment on above: Order Comment: Jessica [facility] Type: BLOOD SPECIMEN Ordering Facility: [facility] Address: [address] [place] [address] Result Comment: <100 mg/dL, Optimal 100-129 mg/dL, Near optimal/above optimal 130-159 mg/dL, Borderline high 160-189 mg/dL, High >189 mg/dL, Very high Secondary prevention optimal LDL Cholesterol levels are recommended to be < 70 mg/dL Performed By: #### 2 4321-2, 36331-8 #### [facility] CLIA [id number] [address] Cholesterol in LDL/Cholesterol in HDL [Mass ratio] 2.05 {ratio} Normal <2.54 [facility] Comment on above: Order Comment: [facility] Type: BLOOD SPECIMEN Ordering Facility: [facility] Address: [address] [place] [address] Result Comment: Gifty yepez: 1. National Cholesterol Education Program ATP III Guideline At-A-Glance Quick Desk Reference: National Heart, Lung, and Blood [place]. National Institutes of Health. 2001: NIH Publication No. 01-3305. 2. An International Atherosclerosis Society position paper: global recommendations for the management of dyslipidemia: executive summary, Atherosclerosis. 2014: 232(2):410-413. Performed By: #### 2 1-2, 52258-2 #### [facility] CLIA [id number] [address] Cholesterol in VLDL [Mass/Vol] 16 mg/dL Normal <30 [facility] Comment on above: Order Comment: [facility] Type: BLOOD SPECIMEN Ordering Facility: [facility] Address: [address] [place] [address] Performed By: #### 2 4320-2, 39064-7 #### [facility] CLIA [id number] [address] OF [facility] Cholesterol non HDL [Mass/Vol] 96 mg/dL Normal <130 [facility] Comment on above: Order Comment: [facility] Type: BLOOD SPECIMEN Ordering Facility: [facility] Address: [address] [place] [address] Result Comment: <130 mg/dL, Optimal 130-159 mg/dL, Near optimal/above optimal 160-189 mg/dL, Borderline high 190-219 mg/dL, High >219 mg/dL, Very high Secondary prevention optimal non HDL Cholesterol levels are recommended to be <100 mg/dL Performed By: #### 2 4320-2, 35203-3 #### [employer] [facility] CLIA [id number] [address] Cholesterol.total/Chol esterol in HDL [Mass ratio] 3.46 {ratio} Normal <5.10 [facility] Comment on above: Order Comment: Speci men Type: BLOOD SPECIMEN Ordering Facility: [facility] Address: [address] [place] [address] Performed By: #### 2 4320-2, 95582-8 #### [facility] CLIA [id number] [address] [place] FASTING TIME 8 hrs Normal [facility] Comment on above: Order Comment: [facility] Type: BLOOD SPECIMEN Ordering Facility: [facility] Address: [address] [place] [address] Performed By: #### 2 4320-2, 70749-0 #### [facility] CLIA [id number] 1 [place] [address] [place] Triglyceride [Mass/Vol] 80 mg/dL Normal <150 [facility] Comment on above: Order Comment: Speci men Type: BLOOD SPECIMEN Ordering Facility: [facility] Address: [address] [place] [address] Result Comment: <150 mg/dL, Normal 150-199 mg/dL, Borderline high 200-499 mg/dL, High >499 mg/dL, Very high Performed By: #### 2 4321-2, 94462-8 #### [facility] CLIA [id number] 1 [place] [address] [place] [facility] MRI BRAIN WO/W IVCONon 12-09 MRI BRAIN WO/W IVCON * * *Final Report* * * DATE OF EXAM: Dec 10 2023 9:29PM [facility] 0295 - MRI BRAIN WO/W IVCON / [...] clinical examination, and consider further evaluation accordingly. Lay Out Maker: PSCB Transcribe Date/Time: Dec 10 2023 9:30P Dictated by : JOSUE HARRISON MD This examination was interpreted and the report reviewed and electronically signed by: JOSUE HARRISON MD on Dec 10 2023 9:38PM EST [id number] Normal [facility] THERAPY NTon 12-10-2023 THERAPY NT HNO ID: [id number] Author: DARRIUS GONZALEZ PT Service: Physical Therapy Author Type: Physical Therapist Type: Therapy (PT/OT/Speech/Resp) Filed: 12/10/2023 09:08 Note Text: PHYSICAL THERAPY MISSED VISIT SERVICE DATE: 12/10/2023 SERVICE TIME: 837 ROOM: [place] [address] Patient not seen due to Clinical Appropriateness (per OT no needs--only has facial numbness no mobility limitations--in room indep). Will D/C PT order SIGNATURE: Darrius Gonzalez PT PATIENT NAME: Betsy Mesa DATE: December 10, 2023 TIME: 9:07 AM Normal [facility] THERAPY NT HNO ID: [id number] Author: SASHA [place] OTR/Alina Service: Occupational Therapy Author Type: Occupational Therapist Type: Therapy (PT/OT/Speech/Resp) Filed: 12/10/2023 08:42 Note Text: OCCUPATIONAL THERAPY MISSED VISIT SERVICE DATE: 12/10/2023 SERVICE TIME: ROOM: [place] [address] Patient not seen due to (Screened). Spoke with pt, identified no acute OT needs. Pt appears to be at her baseline for mobility and self-care tasks. Pt with family support at home, reports no concerns related to return home. Will sign off at this time. SIGNATURE: Sasha Ny OTR/Alina PATIENT NAME: Betsy eMsa DATE: December 10, 2023 TIME: 8:41 AM Normal [facility] Basic metabolic 2000 panelon 12-09-2023 Anion gap [Moles/Vol] 15 mmol/L Normal 9-18 [facility] Comment on above: Order Comment: Speci men Type: BLOOD SPECIMEN Ordering Facility: [facility] Address: [address] [place] [address] Performed By: #### 1 91239, 82420-3 #### [facility] CLIA [id number] 1 [place] [address] [place] Calcium [Mass/Vol] 9.1 mg/dL Normal 8.5-10.2 [facility] Comment on above: Order Comment: Speci men Type: BLOOD SPECIMEN Ordering Facility: [facility] Address: [address] [place] [address] Performed By: #### 1 7323, 91821-2 #### [facility] CLIA [id number] 1 [place] [address] [place] Chloride [Moles/Vol] 105 mmol/L Normal 97-105 [facility] Comment on above: Order Comment: Speci men Type: BLOOD SPECIMEN Ordering Facility: [facility] Address: [address] [place] [address] Performed By: #### 1 239, 44314-1 #### [facility] CLIA [id number] 1 [place] [address] [place] CO2 [Moles/Vol] 22 mmol/L Normal 22-30 [facility] Comment on above: Order Comment: Speci men Type: BLOOD SPECIMEN Ordering Facility: [facility] Address: [address] [place] [address] Performed By: #### 1 91239, 03296-4 #### [facility] CLIA [id number] 1 [place] [address] [place] Creatinine [Mass/Vol] 0.76 mg/dL Normal 0.58-0.96 [facility] Comment on above: Order Comment: Jessica rojo Type: BLOOD SPECIMEN Ordering Facility: [facility] Address: [address] [place] [address] Performed By: #### 1 9123-9, 32022-8 #### [facility] CLIA [id number] [address] [place] [address] Creatinine and Glomerular filtration rate.predicted panel (S/P/Bld) 110 mL/min/1.73m??? Normal >=60 [facility] Comment on above: Order Comment: Jessica rojo Type: BLOOD SPECIMEN Ordering Facility: [facility] Address: [address] [place] [address] Result Comment: Sarah mated Glomerular Filtration Rate [...] actual GFR. Performed By: #### 1 9123-9, 39143-0 #### [facility] CLIA [id number] [address] [place] [address] [place] Glucose [Mass/Vol] 110 mg/dL High 74-99 [facility] Comment on above: Order Comment: Jessica rojo Type: BLOOD SPECIMEN Ordering Facility: [facility] Address: [address] [place] [address] Result Comment: The [place] Diabetes Association (ADA) provides guidance for cutoff [...] Standards of Medical Care in Diabetes 2016, [place] Diabetes Association. Diabetes Care. 2016.39(Suppl 1). Performed By: #### 1 9123-9, 00797-7 #### [facility] CLIA [id number] [address] [place] Potassium [Moles/Vol] 3.3 mmol/L Low 3.7-5.1 [facility] Comment on above: Order Comment: Speci men Type: BLOOD SPECIMEN Ordering Facility: [facility] Address: [address] [place] [address] Performed By: #### 1 9123-9, 99926-6 #### [facility] CLIA [id number] [address] STATES OF [facility] Sodium [Moles/Vol] 142 mmol/L Normal 136-144 [facility] Comment on above: Order Comment: Speci men Type: BLOOD SPECIMEN Ordering Facility: [facility] Address: [address] [place] [address] Performed By: #### 1 91239, 43239-8 #### [facility] CLIA [id number] [address] [place] [facility] Urea nitrogen [Mass/Vol] 8 mg/dL Normal 7-21 [facility] Comment on above: Order Comment: Speci men Type: BLOOD SPECIMEN Ordering Facility: [facility] Address: [address] [place] [address] Performed By: #### 1 9123-9, 11685-4 #### [facility] CLIA [id number] [address] [place] CBC panel Auto (Bld)on 12-08 Erythrocyte distribution width (RBC) [Ratio] 15.3 % High 11.5-15.0 [facility] Comment on above: Order Comment: Speci men Type: BLOOD SPECIMEN Ordering Facility: [facility] Address: [address] [place] [address] Performed By: #### 5 8410-2 #### [facility] CLIA [id number] [address] OF [facility] Hematocrit (Bld) [Volume fraction] 34.9 % Low 36.0-46.0 [facility] Comment on above: Order Comment: Speci men Type: BLOOD SPECIMEN Ordering Facility: [facility] Address: [address] [place] [address] Performed By: #### 5 8410-2 #### [facility] CLIA [id number] [address] OF [facility] Hemoglobin (Bld) [Mass/Vol] 11.2 g/dL Low 11.5-15.5 [facility] Comment on above: Order Comment: Speci men Type: BLOOD SPECIMEN Ordering Facility: [facility] Address: [address] [place] [address] Performed By: #### 5 8410-2 #### [facility] CLIA [id number] [address] MCH (RBC) [Entitic mass] 27.3 pg Normal 26.0-34.0 [facility] Comment on above: Order Comment: Speci men Type: BLOOD SPECIMEN Ordering Facility: [facility] Address: [address] [place] [address] Performed By: #### 5 8410-2 #### [facility] CLIA [id number] [address] OF [facility] MCHC (RBC) [Mass/Vol] 32.1 g/dL Normal 30.5-36.0 [facility] Comment on above: Order Comment: Speci men Type: BLOOD SPECIMEN Ordering Facility: [facility] Address: [address] [place] [address] Performed By: #### 5 8410-2 #### [facility] CLIA [id number] [address] MCV (RBC) [Entitic vol] 85.1 fL Normal 80.0-100.0 [facility] Comment on above: Order Comment: Speci men Type: BLOOD SPECIMEN Ordering Facility: [facility] Address: [address] [place] [address] Performed By: #### 5 8410-2 #### [facility] CLIA [id number] [address] [place] Nucleated RBC (Bld) [#/Vol] 10*3/uL Normal <0.01 [facility] Comment on above: Order Comment: Speci men Type: BLOOD SPECIMEN Ordering Facility: [facility] Address: [address] [place] [address] Performed By: #### 5 8410-2 #### [facility] CLIA [id number] [address] [place] Platelet mean volume (Bld) [Entitic vol] 11.2 fL Normal 9.0-12.7 [facility] Comment on above: Order Comment: Speci men Type: BLOOD SPECIMEN Ordering Facility: [facility] Address: [address] [place] [address] Performed By: #### 5 8410-2 #### [facility] CLIA [id number] [address] [place] Platelets (Bld) [#/Vol] 212 10*3/uL Normal 150-400 [facility] Comment on above: Order Comment: Speci men Type: BLOOD SPECIMEN Ordering Facility: [facility] Address: [address] [place] [address] Performed By: #### 5 8410-2 #### [facility] CLIA [id number] [address] [place] RBC (Bld) [#/Vol] 4.10 10*6/uL Normal 3.90-5.20 [facility] Comment on above: Order Comment: Speci men Type: BLOOD SPECIMEN Ordering Facility: [facility] Address: [address] [place] [address] Performed By: #### 5 8410-2 #### [facility] CLIA [id number] [address] [place] WBC (Bld) [#/Vol] 7.45 10*3/uL Normal 3.70-11.00 [facility] Comment on above: Order Comment: Speci men Type: BLOOD SPECIMEN Ordering Facility: [facility] Address: [place] [id number] Performed By: #### 5 8410-2 #### [facility] CLIA [id number] 1 [place] [id number] [facility] CT BRAIN ATTACK WO IVCONon 0 12-09-2023 CT BRAIN ATTACK WO IVCON * * *Final Report* * * DATE OF EXAM: Dec 09 2023 5:45PM [facility] BRAIN ATTACK WO [...] ROC MUNIZ on 12/09/2023 5:51PM . CR_1 Lay Out Maker: RADHA Transcribe Date/Time: Dec 09 2023 6:00P Dictated by : JONATHAN WEISS MD This examination was interpreted and the report reviewed and electronically signed by: JONATHAN WEISS MD on Dec 09 2023 6:11PM EST [id number] CRITICAL!! Invalid Interpretation Code [facility] CTA HEAD W IVCONon 4 CTA HEAD W IVCON * * *Final Report* * * DATE OF EXAM: Dec 09 2023 5:51PM [facility] - CTA HEAD W IVCON [...] proximal basilar fenestration, seen best on smaller qmamv-gv-fgql focused images through the region. The basilar artery is patent and relatively small secondary to large posterior communicating arteries bilaterally. Both posterior cerebral arteries are widely patent. Operational Assistant (topogram) images: No additional findings. IMPRESSION: 1. No evidence of significant carotid or vertebral artery stenosis 2. Proximal basilar fenestration noted 3. No evidence of an acute intracranial large vessel occlusion Arterial blood flow was measured to detect acute large vessel occlusion by computer aided detection software: Not Performed. Concordance between software and imaging review: Not Applicable. Lay Out Maker: PSCB Transcribe Date/Time: Dec 09 2023 6:19P Dictated by : JONATHAN WEISS MD This examination was interpreted and the report reviewed and electronically signed by: JONATHAN WEISS MD on Dec 09 2023 6:32PM EST [id number] Normal [facility] CTA NECK W IVCONon 4 CTA NECK W IVCON * * *Final Report* * * DATE OF EXAM: Dec 09 2023 5:51PM [facility] - CTA NECK W IVCON [...] proximal basilar fenestration, seen best on smaller exqwq-cc-fnty focused images through the region. The basilar artery is patent and relatively small secondary to large posterior communicating arteries bilaterally. Both posterior cerebral arteries are widely patent. Operational Assistant (topogram) images: No additional findings. IMPRESSION: 1. No evidence of significant carotid or vertebral artery stenosis 2. Proximal basilar fenestration noted 3. No evidence of an acute intracranial large vessel occlusion Arterial blood flow was measured to detect acute large vessel occlusion by computer aided detection software: Not Performed. Concordance between software and imaging review: Not Applicable. Lay Out Maker: PSCB Transcribe Date/Time: Dec 09 2023 6:19P Dictated by : JONATHAN WEISS MD This examination was interpreted and the report reviewed and electronically signed by: JONATHAN WEISS MD on Dec 09 2023 6:32PM EST [id number] Normal [facility] ED NOTEon 12-09-2023 ED NOTE HNO ID: [id number] Author: JUAN A FREEMAN RN Service: Emergency Medicine Author Type: Registered Nurse Type: ED Notes Filed: 12/09/2023 22:00 Note Text: Report called to receiving RN on 9100 Normal [facility] ED NOTE HNO ID: [id number] Author: JUAN A FREEMAN RN Service: Emergency Medicine Author Type: Registered Nurse Type: ED Notes Filed: 12/09/2023 22:01 Note Text: Performed dysphagia screening on pt, pt passed screening. Pt provided with applesauce and crackers x2. Pt has possessions and call light within reach. Pt updated on status of admit and bed being ready. Pt understanding at this time. Normal [facility] ED NOTE HNO ID: [id number] Author: MAGALIS PIERCE RN Service: Emergency Medicine Author Type: Registered Nurse Type: ED Notes Filed: 12/09/2023 17:36 Note Text: Blood sugar 116 Normal [facility] ED NOTE HNO ID: [id number] Author: DOM ALCOCER RN Service: ? Author Type: Registered Nurse Type: ED Notes Filed: 12/09/2023 16:54 Note Text: No answer for triage x1 Normal [facility] ED PROV NOTEon 12-09-2023 ED PROV NOTE HNO ID: [id number] Author: ROC MUNIZ MD Service: Emergency Medicine [...] is from kissing. 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 [...] Row Nam (more content not included)... Normal [facility] ED PROV NOTE HNO ID: [id number] Author: ROC MUNIZ MD Service: Emergency Medicine [...] of her upper or lower extremities. Normal vwhamy-kd-auoa. Visual french normal. Critical Care I spent a total of 40 minutes of critical care time in the evaluation and management of this patient. This was necessary to treat or prevent deterioration of the following condition(s): SKEIN WASHER impairment, which the patient had and/or has a high probability of suddenly developing. The patient received Consultation by Stroke neurology during the time that critical care was provided.I discussed the plan of care with the RESIDENT and agree with the findings documented. Critical care time excludes separately billed procedures. MD TOMAS Buenrostro JNO J 12/09/23 2329 Normal [facility] ED Triage Noteon 12-09-2023 ED Triage Note HNO ID: [id number] Author: SHERIN GUERRA APRN.EVAN Service: ? Author [...] encounter. EKG Directly roomed SIGNATURE: Sherin Guerra APRN.SAS ETL DEVELOPER Normal [facility] EKGon 12-09-2023 Electrocardiogram Ventricular Rate : 9 9 BPM Atrial Rate : 99 BPM P-R Interval : 186 ms QRS Duration : 80 ms Q-T Interval : 342 ms QTC Calculation(Bazett) : 438 ms Calculated P [place] : 45 degrees Calculated R [place] : 55 degrees Calculated T [place] : 27 degrees NORMAL SINUS RHYTHM NONSPECIFIC T WAVE ABNORMALITY NO PREVIOUS ECGS AVAILABLE Confirmed by MD MUNIZ JNO ([id number]) on 12/09/2023 6:44:50 PM NAME : BETSY MESA PID : [id number] : 1995 Gender : Female Race : Other ORD : Procedure Date : Dec 09 2023 17:06:20 Edit Date : Dec 09 2023 18:44:54 Diagnosis: NORMAL SINUS RHYTHM NONSPECIFIC T WAVE ABNORMALITY NO PREVIOUS ECGS AVAILABLE Confirmed by MD MUNIZ JNO ([id number]) on 12/09/2023 6:44:50 PM Test Reason : Location : 4 : [facility] Overread By : MD MUNIZ JNO Edited By : MD MUNIZ JNO Referred By : , Acquired by : SONIYA ECHOLS [facility] HIGH SENSITIVITY TROPONIN To 12-09-2023 Troponin T.cardiac High sensitivity method [Mass/Vol] <6 Normal <12 [facility] Comment on above: Order Comment: Speci men Type: BLOOD SPECIMEN Ordering Facility: [facility] Address: [address] [place] [address] Result Comment: When assessing risk for acute [...] MACE. Performed By: #### H STNT #### [facility] CLIA [id number] [address] [place] [address] [place] Magnesium SerPl-mCncon 12-08 Magnesium [Mass/Vol] 1.9 mg/dL Normal 1.7-2.3 [facility] Comment on above: Order Comment: Jessica men Type: BLOOD SPECIMEN Ordering Facility: [facility] Address: [address] [place] [address] Performed By: #### 1 9123-9, 88115-6 #### [facility] CLIA [id number] [address] [place] [address] [place] PT panel Coag (PPP)on 2023 INR Coag (PPP) [Relative time] 1.1 {INR} Normal 0.9-1.3 [facility] Comment on above: Order Comment: Jessica men Type: BLOOD SPECIMEN Ordering Facility: [facility] Address: [address] [place] [address] Result Comment: Akosua min K Antagonist (VKA) Therapeutic Range: INR 2 to 3 (Target INR of 2.5) Note: For patients treated with VKA drugs, such as warfarin, the [place] [employer] 2012 Guideline recommends [...] GH, et al. Chest 2012, 141:7S-47S Kim RA et al. [facility] 2017, 70: 252-289 Performed By: #### 3 4528-0, 62984-3 #### [facility] CLIA [id number] [address] [place] PT Coag (PPP) [Time] 11.4 s Normal 9.7-13.0 [facility] Comment on above: Order Comment: Jessica rojo Type: BLOOD SPECIMEN Ordering Facility: [facility] Address: [address] [place] [address] Performed By: #### 3 4528-0, 07943-6 #### [facility] CLIA [id number] [address] [place] aPTT PPPon 12-09-2023 aPTT Coag (PPP) [Time] 26.9 s Normal 23.0-32.4 [facility] Comment on above: Order Comment: Speci men Type: BLOOD SPECIMEN Ordering Facility: [facility] Address: [facility] [place] [address] Performed By: #### 3 4528-0, 42321-5 #### [facility] CLIA [id number] [address] [place] [id number] [facility] XR HIP 2-3 VIEWS LEFTon XR HIP [...] 12:32:55 PM Ordering Provider: JOSÉ MIGUEL Rosario [facility] (MD) BASIC METABOLIC PANELon - Anion gap [Moles/Vol] 8.4 mmol/L Low 11-23 [facility] Comment on above: Performed By: #### D SANA #### [facility] [address] [place] [address] Calcium [Mass/Vol] 8.4 mg/dL Low 8.5-10.1 [facility] Comment on above: Performed By: #### D SANA #### [facility] [address] [place] [address] Chloride [Moles/Vol] 112 mmol/L High 98-107 [facility] Comment on above: Performed By: #### D SANA #### [facility] [address] [place] [address] CO2 [Moles/Vol] 26.0 mmol/L Normal 21-32 [facility] Comment on above: Performed By: #### D SANA #### [facility] [address] [place] [address] Creatinine [Mass/Vol] 0.80 mg/dL Normal 0.55-1.02 [facility] Comment on above: Performed By: #### D SANA #### [facility] [address] [place] [address] GFR > 60.0 [facility] Comment on above: Performed By: #### D SANA #### [address] [place] [address] GFR AM > 60.0 [facility] Comment on above: Result Comment: THE NORMAL LEVEL OF GFR VARIES ACCORDING TO AGE, SEX, AND BODY SIZE. A GFR LEVEL OF LESS THAN 60 ML/MIN REPRESENTS LOSS OF THE ADULT LEVEL OF NORMAL KIDNEY FUNCTION. Performed By: #### D SANA #### [address] [place] [address] Glucose [Mass/Vol] 153 mg/dL High 70-100 [facility] [place] Comment on above: Performed By: #### D SANA #### [address] [place] [address] Potassium [Moles/Vol] 3.8 mmol/L Normal 3.5-5.1 [facility] Comment on above: Performed By: #### D SANA #### [address] [place] [address] Sodium [Moles/Vol] 142 mmol/L Normal 136-145 [facility] [place] Comment on above: Performed By: #### D SANA #### [address] [place] [address] Urea nitrogen [Mass/Vol] 9.0 mg/dL Normal 7-18 [facility] Comment on above: Performed By: #### D SAAN #### [address] [place] [address] HCG URINEon 10-15-2023 Beta HCG ( test) Ql (U) Positive [facility] Comment on above: Order Comment: What Is Urine Source? Clean [place] Performed By: #### D SANA #### [address] [place] [address] URINALYSISon 10-15-2023 Color (U) Savita Normal [facility] Comment on above: Order Comment: What Is Urine Source? Clean [place] What Is Urine Source? [place] Performed By: #### U A, UMIC #### [facility] [address] [place] [address] URINE MICROSCOPICon 10-15-19 24 URINE BACTERIA FEW Normal <1+ [facility] Comment on above: Performed By: #### U A, UMIC #### [address] [place] [address] URINE WBC 0-3 Normal 0-3 [facility] Comment on above: Performed By: #### U A, UMIC #### [address] [address] RBC (U) [#/Vol] /uL Normal 0-2 [facility] Comment on above: Performed By: #### U A, UMIC #### [address] [address] UR SQUAM EPITH MODERATE Normal NONE-MANY [facility] Comment on above: Performed By: #### U A, UMIC #### [address] [address] CBC with AUTO DIFFon 024 BAS0 % 0.30 % Normal 0-2 [facility] Comment on above: Performed By: #### C BC #### [address] [address] Basophils (Bld) [#/Vol] 0.0 10*3/uL Normal 0-0.1 [facility] Comment on above: Performed By: #### C BC #### [address] [place] [address] Eosinophils (Bld) [#/Vol] 0.2 10*3/uL Normal 0.0-1.80 [facility] Comment on above: Performed By: #### C BC #### [address] [address] Eosinophils/100 WBC (Bld) 1.7 % Normal 0-8 [facility] Comment on above: Performed By: #### C BC #### [address] [address] GRAN # 6.5 K/uL Normal 2.2-9.1 [facility] Comment on above: Performed By: #### C BC #### [facility] [address] [place] [address] GRAN % 69.1 % Normal 42-80 [facility] Comment on above: Performed By: #### C BC #### [facility] [address] [place] [address] Hematocrit (Bld) [Volume fraction] 30.0 % Low 37.0-47.0 [facility] Comment on above: Performed By: #### C BC #### [facility] [address] [place] [address] Hemoglobin (Bld) [Mass/Vol] 10.0 g/dL Low 12.0-16.0 [facility] Comment on above: Performed By: #### C BC #### [address] [address] Lymphocytes (Bld) [#/Vol] 2.3 10*3/uL Normal 1.0-4.0 [facility] Comment on above: Performed By: #### C BC #### [address] [place] [address] Lymphocytes/100 WBC (Bld) 24.5 % Normal 16-48 [facility] Comment on above: Performed By: #### C BC #### [address] [place] [address] MCV (RBC) [Entitic vol] 81.9 fL Normal 80-97 [facility] Comment on above: Performed By: #### C BC #### [address] [place] [address] MEAN CORPUSCULAR HGB 27.2 pg Normal 26.0-32.0 [facility] Comment on above: Performed By: #### C BC #### [facility] [address] [place] [address] MEAN CORPUSCULAR HGB CONC 33.2 g/dL Normal 31.0-36.0 [facility] Comment on above: Performed By: #### C BC #### [facility] [address] [place] [address] MONO DISTRIB WIDTH 15.47 Normal 0-20 [facility] [place] Comment on above: Result Comment: For ED adult patients suspected of sepsis, MDW<=20.0 does not rule out sepsis or risk of sepsis Performed By: #### C BC #### [facility] [address] [place] [address] Monocytes (Bld) [#/Vol] 0.4 10*3/uL Normal 0.1-1.7 [facility] Comment on above: Performed By: #### C BC #### [facility] [address] [place] [address] Monocytes/100 WBC (Bld) 4.4 % Normal 3-9 [facility] Comment on above: Performed By: #### C BC #### [facility] [address] [place] [address] Platelet mean volume (Bld) [Entitic vol] 8.8 fL Normal 6.6-10.5 [facility] Comment on above: Performed By: #### C BC #### [facility] [address] [place] [address] Platelets (Bld) [#/Vol] 165 10*3/uL Normal 140-450 [facility] Comment on above: Performed By: #### C BC #### [address] [place] [address] RBC (Bld) [#/Vol] 3.67 10*6/uL Low 4.20-5.50 [facility] Comment on above: Performed By: #### C BC #### [facility] [address] [place] [address] RED CELL DISTRI WIDTH 17.2 % High 11.0-15.5 [facility] Comment on above: Performed By: #### C BC #### [facility] [address] [place] [address] WBC (Bld) [#/Vol] 9.4 10*3/uL Normal 4.0-11.0 [facility] [place] Comment on above: Performed By: #### C BC #### [facility] [address] [place] [address] ED.PDOCon 10-14-2023 ED.PDOC BONITALUÍS CarringtonKI Female [id number] Attending provider: [facility] JASPER [id number] Juan Tidwell 1995 28 DOS: 10/14/23 Hx/Exam [...] She states she does not have a supervisor hide house, so presents to the emergency department for [...] Psych: Euthymic, with normal affect. 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 Pelvic exam reveals [...] with Dr. Jacobo who is covering the [employer] service. Patient arrives after hours, ultrasound [...] upon t (more content not included)... Normal [facility] Laboratory studies (set)on 0 10-14-2023 Appearance (U) CLEAR [facility] Bilirubin Ql (U) NEGATIVE [facility] Color (U) [facility] Glucose Ql (U) NEGATIVE [facility] HCG Qn (U) [facility] Ketones Ql (U) NEGATIVE [facility] Leukocyte esterase Test strip Ql (U) NEGATIVE [facility] Nitrite Ql (U) NEGATIVE [facility] pH (U) 8.0 [pH] 5.0-9.0 [facility] Protein Ql (U) NEGATIVE [facility] RBC (U) [#/Vol] High NEGATIVE [facility] RBC LM.HPF (Urine sed) [#/Area] 0-2 [facility] Specific gravity (U) [Rel density] 1.020 1.003-1.035 [facility] Urine Bacteria <1+ [facility] Urine Squamous Epithelial Cells NONE-MANY [facility] Urine WBC 0-3 [facility] Urobilinogen Ql (U) 0.2 E.U./dL <=1.0 [facility] Anion gap [Moles/Vol] 8.4 mmol/L Low 11-23 [facility] Basophils (Bld) [#/Vol] 0.0 10*3/uL 0-0.1 [facility] Basophils/100 WBC (Bld) 0.30 % 0-2 [facility] Calcium [Mass/Vol] 8.4 mg/dL Low 8.5-10.1 [facility] Chloride [Moles/Vol] 112 mmol/L High 98-107 [facility] CO2 [Moles/Vol] 26.0 mmol/L 21-32 [facility] Creatinine [Mass/Vol] 0.80 mg/dL 0.55-1.02 [facility] Eosinophils (Bld) [#/Vol] 0.2 10*3/uL 0.0-1.80 [facility] Eosinophils/100 WBC (Bld) 1.7 % 0-8 [facility] Erythrocyte distribution width (RBC) [Ratio] 17.2 % High 11.0-15.5 [facility] Estimated GFR () [facility] Comment on above: THE NORMAL LEVEL OF GFR VARIES ACCORDING TO AGE, SEX, AND BODY SIZE. A GFR LEVEL OF LESS THAN 60 ML/MIN REPRESENTS LOSS OF THE ADULT LEVEL OF NORMAL KIDNEY FUNCTION. GFR/1.73 sq M.predicted among non-blacks MDRD (S/P/Bld) [Vol rate/Area] [facility] Glucose [Mass/Vol] 153 mg/dL High 70-[facility] Granulocytes (Bld) [#/Vol] 6.5 10*3/uL 2.2-9.1 [facility] Granulocytes/100 WBC (Bld) 69.1 % 42-80 [facility] Hematocrit (Bld) [Volume fraction] 30.0 % Low 37.0-47.0 [facility] Hemoglobin (Bld) [Mass/Vol] 10.0 g/dL Low 12.0-16.0 [facility] Lymphocytes (Bld) [#/Vol] 2.3 10*3/uL 1.0-4.0 [facility] Lymphocytes/100 WBC (Bld) 24.5 % 16-48 [facility] MCH (RBC) [Entitic mass] 27.2 pg 26.0-32.0 [facility] MCHC (RBC) [Mass/Vol] 33.2 g/dL 31.0-36.0 [facility] MCV (RBC) [Entitic vol] 81.9 fL 80-97 [facility] Monocyte distribution width Auto (Bld) [Entitic vol] 15.47 0-20 [facility] Comment on above: For ED adult patient s suspected of sepsis, MDW<=20.0 does not rule out sepsis or risk of sepsis Monocytes (Bld) [#/Vol] 0.4 10*3/uL 0.1-1.7 [facility] Monocytes/100 WBC (Bld) 4.4 % 3-9 [facility] Platelet mean volume (Bld) [Entitic vol] 8.8 fL 6.6-10.5 [facility] Platelets (Bld) [#/Vol] 165 10*3/uL 140-450 [facility] Potassium [Moles/Vol] 3.8 mmol/L 3.5-5.1 [facility] RBC (Bld) [#/Vol] 3.67 10*6/uL Low 4.20-5.50 [facility] Sodium [Moles/Vol] 142 mmol/L 136-145 [facility] [place] Urea nitrogen [Mass/Vol] 9.0 mg/dL 7-18 [facility] WBC (Bld) [#/Vol] 9.4 10*3/uL 4.0-11.0 [facility] URINALYSISon 10-14-2023 Appearance (U) Clear Normal CLEAR [facility] Comment on above: Order Comment: What Is Urine Source? Clean Catch [place] What Is Urine Source? Clean [place]atch [place] Performed By: #### U A UMIC #### [address] [address] Hemoglobin Ql (U) 3+ Abnormal NEGATIVE [facility] Comment on above: Order Comment: What Is Urine Source? Clean [place] What Is Urine Source? [place] Performed By: #### U A UMIC #### [address] [address] pH (U) 8.0 [pH] Normal 5.0-9.0 [facility] Comment on above: Order Comment: What Is Urine Source? Clean [place] What Is Urine Source? [place] Performed By: #### U A UMIC #### [address] [address] URINE BILIRUBIN - DIPSTICK Negative Normal NEGATIVE [facility] Comment on above: Order Comment: What Is Urine Source? [place] What Is Urine Source? [place] Performed By: #### U A UMIC #### [address] [address] URINE GLUCOSE -DIPSTICK Negative Normal NEGATIVE [facility] Comment on above: Order Comment: What Is Urine Source? [place] What Is Urine Source? [place] Performed By: #### U A, UMIC #### [address] [address] URINE KETONE Negative Normal NEGATIVE [facility] Comment on above: Order Comment: What Is Urine Source? [place] What Is Urine Source? [place] Performed By: #### U A, UMIC #### [address] [address] URINE LEUK ESTERASE Negative Normal NEGATIVE [facility] Comment on above: Order Comment: What Is Urine Source? Clean Catch [place] What Is Urine Source? Clean [place] Performed By: #### U A, UMIC #### [address] [address] URINE NITRITE - DIPSTICK Negative Normal NEGATIVE [facility] Comment on above: Order Comment: What Is Urine Source? Clean [place] What Is Urine Source? Clean [place] Performed By: #### U A, UMIC #### [address] [place] [address] URINE PROTEIN - DIPSTICK Negative Normal NEGATIVE [facility] Comment on above: Order Comment: What Is Urine Source? Clean [place] What Is Urine Source? [place] Performed By: #### U A, UMIC #### [address] [address] URINE SPEC GRAVITY, DIPSTICK 1.020 Normal 1.003-1.035 [facility] Comment on above: Order Comment: What Is Urine Source? Clean [place] What Is Urine Source? [place] Performed By: #### U A UMIC #### [address] [address] URINE UROBILINOGEN - DIPSTICK 0.2 E.U./dL Normal <=1.0 [facility] Comment on above: Order Comment: What Is Urine Source? [place] What Is Urine Source? [place] Performed By: #### U A UMIC #### [address] [address] ACETONEon 08-11-2023 ACETONE Negative Normal [facility] Comment on above: Performed By: #### M N, TRO, ACTN #### [address] [address] CBC with AUTO DIFFon 024 BAS0 % 0.90 % Normal 0-2 [facility] Comment on above: Performed By: #### C BC #### [address] [address] Basophils (Bld) [#/Vol] 0.1 10*3/uL Normal 0-0.1 [facility] Comment on above: Performed By: #### C BC #### [address] [address] Eosinophils (Bld) [#/Vol] 0.2 10*3/uL Normal 0.0-1.80 [facility] Comment on above: Performed By: #### C BC #### [address] [address] Eosinophils/100 WBC (Bld) 3.2 % Normal 0-8 [facility] Comment on above: Performed By: #### C BC #### [address] [address] GRAN # 3.8 K/uL Normal 2.2-9.1 [facility] Comment on above: Performed By: #### C BC #### [facility] [address] [place] [address] GRAN % 51.1 % Normal 42-80 [facility] Comment on above: Performed By: #### C BC #### [facility] [address] [place] [address] Hematocrit (Bld) [Volume fraction] 31.4 % Low 37.0-47.0 [facility] Comment on above: Performed By: #### C BC #### [facility] [address] [place] [address] Hemoglobin (Bld) [Mass/Vol] 10.1 g/dL Low 12.0-16.0 [facility] Comment on above: Performed By: #### C BC #### [facility] [address] [place] [address] Lymphocytes (Bld) [#/Vol] 2.9 10*3/uL Normal 1.0-4.0 [facility] Comment on above: Performed By: #### C BC #### [address] [place] [address] Lymphocytes/100 WBC (Bld) 38.9 % Normal 16-48 [facility] Comment on above: Performed By: #### C BC #### [address] [place] [address] MCV (RBC) [Entitic vol] 80.0 fL Normal 80-97 [facility] Comment on above: Performed By: #### C BC #### [address] [place] [address] MEAN CORPUSCULAR HGB 25.8 pg Low 26.0-32.0 [facility] Comment on above: Performed By: #### C BC #### [address] [place] [address] MEAN CORPUSCULAR HGB CONC 32.3 g/dL Normal 31.0-36.0 [facility] Comment on above: Performed By: #### C BC #### [facility] [address] [facility] [place] [address] MONO DISTRIB WIDTH 15.35 Normal 0-20 [facility] [place] Comment on above: Result Comment: For ED adult patients suspected of sepsis, MDW<=20.0 does not rule out sepsis or risk of sepsis Performed By: #### C BC #### [facility] [address] [place] [address] Monocytes (Bld) [#/Vol] 0.4 10*3/uL Normal 0.1-1.7 [facility] Comment on above: Performed By: #### C BC #### [facility] [address] [place] [address] Monocytes/100 WBC (Bld) 5.9 % Normal 3-9 [facility] Comment on above: Performed By: #### C BC #### [facility] [address] [place] [address] Platelet mean volume (Bld) [Entitic vol] 8.7 fL Normal 6.6-10.5 [facility] Comment on above: Performed By: #### C BC #### [facility] [address] [place] [address] Platelets (Bld) [#/Vol] 185 10*3/uL Normal 140-450 [facility] Comment on above: Performed By: #### C BC #### [address] [place] [address] RBC (Bld) [#/Vol] 3.93 10*6/uL Low 4.20-5.50 [facility] Comment on above: Performed By: #### C BC #### [address] [place] [address] RED CELL DISTRI WIDTH 17.5 % High 11.0-15.5 [facility] Comment on above: Performed By: #### C BC #### [facility] [address] [place] [address] WBC (Bld) [#/Vol] 7.4 10*3/uL Normal 4.0-11.0 [facility] Comment on above: Performed By: #### C BC #### [facility] [address] [place] [address] COMPREHENSIVE METABOLIC PANE Sarath 08-11-2023 Albumin [Mass/Vol] 3.6 g/dL Normal 3.4-5.0 [facility] Comment on above: Performed By: #### M N, TRO, ACTN #### [facility] [address] [place] [address] Albumin/Globulin [Mass ratio] 0.9 {ratio} Low 1.1-1.8 [facility] Comment on above: Performed By: #### M GEOVANNY Johnson, ACTN #### [facility] [address] [place] [address] ALP [Catalytic activity/Vol] 73 U/L Normal 45-117 [facility] Comment on above: Performed By: #### M GEOVANNY Johnson, ACTN #### [facility] [address] [place] [address] ALT [Catalytic activity/Vol] 17 U/L Normal 12-78 [facility] Comment on above: Performed By: #### GEOVANNY Soto, ACTN #### [facility] [address] [place] [address] Anion gap [Moles/Vol] 9.2 mmol/L Low 11-23 [facility] Comment on above: Performed By: #### M GEOVANNY Johnson, ACTN #### [facility] [address] [place] [address] AST [Catalytic activity/Vol] 9 U/L Low 15-37 [facility] Comment on above: Performed By: #### GEOVANNY Soto ACTN #### [facility] [address] [place] [address] Bilirubin [Mass/Vol] 0.3 mg/dL Normal 0.2-1.0 [facility] Comment on above: Performed By: #### GEOVANNY Soto ACTN #### [facility] [address] [place] [address] Calcium [Mass/Vol] 8.4 mg/dL Low 8.5-10.1 [facility] Comment on above: Performed By: #### M GEOVANNY Johnson ACTN #### [facility] [address] [place] [address] Chloride [Moles/Vol] 108 mmol/L High 98-107 [facility] Comment on above: Performed By: #### GEOVANNY Soto ACTN #### [facility] [address] [place] [address] CO2 [Moles/Vol] 23.0 mmol/L Normal 21-32 [facility] Comment on above: Performed By: #### GEOVANNY Soto, ACTN #### [facility] [address] [place] [address] Creatinine [Mass/Vol] 0.70 mg/dL Normal 0.55-1.02 [facility] Comment on above: Performed By: #### M GEOVANNY Johnson, ACTN #### [facility] [address] [place] [address] GFR > 60.0 [facility] Comment on above: Performed By: #### M GEOVANNY Johnson, ACTN #### [address] [place] [address] GFR AM > 60.0 [facility] Comment on above: Result Comment: THE NORMAL LEVEL OF GFR VARIES ACCORDING TO AGE, SEX, AND BODY SIZE. A GFR LEVEL OF LESS THAN 60 ML/MIN REPRESENTS LOSS OF THE ADULT LEVEL OF NORMAL KIDNEY FUNCTION. Performed By: #### M GEOVANNY Johnson ACTN #### [address] [place] [address] Globulin (S) [Mass/Vol] 3.8 g/dL Normal 2.5-4.6 [facility] Comment on above: Performed By: #### M GEOVANNY Johnson, ACTN #### [address] [place] [address] Glucose [Mass/Vol] 120 mg/dL High 70-100 [facility] Comment on above: Performed By: #### M GEOVANNY Johnson, ACTN #### [address] [place] [address] Potassium [Moles/Vol] 3.8 mmol/L Normal 3.5-5.1 [facility] Comment on above: Performed By: #### GEOVANNY Soto, ACTN #### [address] [place] [address] Protein [Mass/Vol] 7.3 g/dL Normal 6.0-8.3 [facility] Comment on above: Performed By: #### M GEOVANNY Johnson, ACTN #### [address] [place] [address] Sodium [Moles/Vol] 136 mmol/L Normal 136-145 [facility] Comment on above: Performed By: #### M GEOVANNY Johnson, ACTN #### [address] [place] [address] Urea nitrogen [Mass/Vol] 7.0 mg/dL Normal 7-18 [facility] Comment on above: Performed By: #### M N, TRO, ACTN #### [address] [address] ED.PDOCon 08-11-2023 ED.PDOC BETSY MESA Female [id number] Attending provider: SHANT HUTCHINSON [id number] Vern Henry 1995 28 DOS: 08/11/23 Hx/Exam [...] note is completed with assistance of the [employer] dictation program. While every attempt has been [...] BID #[id number] Transmission Status: Pending to [employer] #[id number] Referrals: AustinAlex Gerri [ACTIVE] - 2-3 Days Dictated By: Vern Henry MD Dictated Date/Time:08/11/23 1120 Electronically Signed Date/Time: 08/11/23 (more content not included)... Normal [facility] HCG URINEon 08-11-2023 Beta HCG ( test) Ql (U) Negative Normal [facility] Comment on above: Order Comment: What Is Urine Source? Clean Catch Mid Stream Performed By: #### D SANA #### [address] [address] Laboratory studies (set)on 0 08-11-2023 Acetone Level [facility] Albumin [Mass/Vol] 3.6 g/dL 3.4-5.0 [facility] Albumin/Globulin [Mass ratio] 0.9 {ratio} Low 1.1-1.8 [facility] ALP [Catalytic activity/Vol] 73 U/L 45-117 [facility] ALT [Catalytic activity/Vol] 17 U/L 12-78 [facility] Anion gap [Moles/Vol] 9.2 mmol/L Low 11-23 [facility] Appearance (U) CLEAR [facility] AST [Catalytic activity/Vol] 9 U/L Low 15-37 [facility] Basophils (Bld) [#/Vol] 0.1 10*3/uL 0-0.1 [facility] Basophils/100 WBC (Bld) 0.90 % 0-2 [facility] Bilirubin [Mass/Vol] 0.3 mg/dL 0.2-1.0 [facility] Bilirubin Ql (U) NEGATIVE [facility] Calcium [Mass/Vol] 8.4 mg/dL Low 8.5-10.1 [facility] Chloride [Moles/Vol] 108 mmol/L High 98-107 [facility] CO2 [Moles/Vol] 23.0 mmol/L 21-32 [facility] Color (U) [facility] Creatinine [Mass/Vol] 0.70 mg/dL 0.55-1.02 [facility] Eosinophils (Bld) [#/Vol] 0.2 10*3/uL 0.0-1.80 [facility] Eosinophils/100 WBC (Bld) 3.2 % 0-8 [facility] [facility] Erythrocyte distribution width (RBC) [Ratio] 17.5 % High 11.0-15.5 [facility] Estimated GFR () [facility] Comment on above: THE NORMAL LEVEL OF GFR VARIES ACCORDING TO AGE, SEX, AND BODY SIZE. A GFR LEVEL OF LESS THAN 60 ML/MIN REPRESENTS LOSS OF THE ADULT LEVEL OF NORMAL KIDNEY FUNCTION. GFR/1.73 sq M.predicted among non-blacks MDRD (S/P/Bld) [Vol rate/Area] [facility] Globulin (S) [Mass/Vol] 3.8 g/dL 2.5-4.6 [facility] Glucose [Mass/Vol] 120 mg/dL High 70-100 [facility] [place] Glucose Ql (U) NEGATIVE [facility] Granulocytes (Bld) [#/Vol] 3.8 10*3/uL 2.2-9.1 [facility] Granulocytes/100 WBC (Bld) 51.1 % 42-80 [facility] HCG Qn (U) [facility] Hematocrit (Bld) [Volume fraction] 31.4 % Low 37.0-47.0 [facility] Hemoglobin (Bld) [Mass/Vol] 10.1 g/dL Low 12.0-16.0 [facility] Ketones Ql (U) NEGATIVE [facility] Leukocyte esterase Test strip Ql (U) High NEGATIVE [facility] Lymphocytes (Bld) [#/Vol] 2.9 10*3/uL 1.0-4.0 [facility] Lymphocytes/100 WBC (Bld) 38.9 % 16-48 [facility] MCH (RBC) [Entitic mass] 25.8 pg Low 26.0-32.0 [facility] MCHC (RBC) [Mass/Vol] 32.3 g/dL 31.0-36.0 [facility] MCV (RBC) [Entitic vol] 80.0 fL 80-97 [facility] Monocyte distribution width Auto (Bld) [Entitic vol] 15.35 0-20 [facility] Comment on above: For ED adult patient s suspected of sepsis, MDW<=20.0 does not rule out sepsis or risk of sepsis Monocytes (Bld) [#/Vol] 0.4 10*3/uL 0.1-1.7 [facility] Monocytes/100 WBC (Bld) 5.9 % 3-9 [facility] Nitrite Ql (U) NEGATIVE [facility] pH (U) 6.0 [pH] 5.0-9.0 [facility] Platelet mean volume (Bld) [Entitic vol] 8.7 fL 6.6-10.5 [facility] Platelets (Bld) [#/Vol] 185 10*3/uL 140-450 [facility] Potassium [Moles/Vol] 3.8 mmol/L 3.5-5.1 [facility] Protein [Mass/Vol] 7.3 g/dL 6.0-8.3 [facility] [place] Protein Ql (U) NEGATIVE [facility] RBC (Bld) [#/Vol] 3.93 10*6/uL Low 4.20-5.50 [facility] RBC (U) [#/Vol] NEGATIVE [facility] RBC LM.HPF (Urine sed) [#/Area] 0-2 [facility] Sodium [Moles/Vol] 136 mmol/L 136-145 [facility] [place] Specific gravity (U) [Rel density] 1.015 1.003-1.035 [facility] Troponin 3.4 pg/mL 0-53.7 [facility] Comment on above: Troponin Reference R flip: Male: 0-78.5 pg/mL (ng/L) Female: 0-53.7 pg/mL (ng/L) Note: The new high sensitivity Troponin units are in pg/mL (ng/L) Urea nitrogen [Mass/Vol] 7.0 mg/dL 7-18 [facility] Urine Bacteria <1+ [facility] Urine Squamous Epithelial Cells NONE-MANY [facility] Urine WBC 0-3 [facility] Urobilinogen Ql (U) 0.2 E.U./dL <=1.0 Nishant ance [facility] WBC (Bld) [#/Vol] 7.4 10*3/uL 4.0-11.0 [facility] TROPONINon 08-11-2023 TROPONIN 3.4 pg/mL Normal 0-53.7 [facility] Comment on above: Result Comment: Trop onin Reference Range: Male: 0-78.5 pg/mL (ng/L) Female: 0-53.7 pg/mL (ng/L) Note: The new high sensitivity Troponin units are in pg/mL (ng/L) Performed By: #### M N, GEOVANNY, ACTN #### [address] [address] URINALYSIS W/ C S IF INDICAT EDon 08-11-2023 Appearance (U) Clear Normal CLEAR [facility] Comment on above: Order Comment: What Is Urine Source? Clean Catch Mid StreamWhat Is Urine Source? [place] Performed By: #### D SANA #### [address] [address] Color (U) Lt. Yellow Normal [facility] Comment on above: Order Comment: What Is Urine Source? Clean Catch Mid StreamWhat Is Urine Source? [place] Performed By: #### D SANA #### [address] [address] Hemoglobin Ql (U) Negative Normal NEGATIVE [facility] Comment on above: Order Comment: What Is Urine Source? Clean Catch Mid StreamWhat Is Urine Source? [place] Performed By: #### D SANA #### [address] [address] pH (U) 6.0 [pH] Normal 5.0-9.0 [facility] Comment on above: Order Comment: What Is Urine Source? Clean Catch Mid StreamWhat Is Urine Source? [place] Performed By: #### D SNAA #### [address] [address] URINE BILIRUBIN - DIPSTICK Negative Normal NEGATIVE [facility] Comment on above: Order Comment: What Is Urine Source? Clean Catch Mid StreamWhat Is Urine Source? [place] Performed By: #### D SANA #### [facility] [address] [place] [address] URINE GLUCOSE - DIPSTICK Negative Normal NEGATIVE [facility] Comment on above: Order Comment: What Is Urine Source? Clean Catch Mid StreamWhat Is Urine Source? [place] Performed By: #### D SANA #### [address] [address] URINE KETONE Negative Normal NEGATIVE [facility] Comment on above: Order Comment: What Is Urine Source? Clean Catch Mid StreamWhat Is Urine Source? [place] Performed By: #### D SANA #### [address] [address] URINE LEUK ESTERASE 1+ Abnormal NEGATIVE [facility] Comment on above: Order Comment: What Is Urine Source? Clean Catch Mid StreamWhat Is Urine Source? [place] Performed By: #### D SANA #### [address] [address] URINE NITRITE - DIPSTICK Negative Normal NEGATIVE [facility] Comment on above: Order Comment: What Is Urine Source? Clean Catch Mid StreamWhat Is Urine Source? [place] Performed By: #### D SANA #### [address] [address] URINE PROTEIN - DIPSTICK Negative Normal NEGATIVE [facility] Comment on above: Order Comment: What Is Urine Source? Clean Catch Mid StreamWhat Is Urine Source? [place] Performed By: #### D SANA #### [address] [address] URINE SPEC GRAVITY, DIPSTICK 1.015 Normal 1.003-1.035 [facility] Comment on above: Order Comment: What Is Urine Source? Clean Catch Mid StreamWhat Is Urine Source? [place] Performed By: #### D SANA #### [facility] [address] [place] [address] URINE UROBILINOGEN - DIPSTICK 0.2 E.U./dL Normal <=1.0 [facility] Comment on above: Order Comment: What Is Urine Source? Clean Catch Mid StreamWhat Is Urine Source? Clean [place] Performed By: #### D SANA #### [address] [address] URINE MICROSCOPICon 08-11-19 24 UR SQUAM EPITH MANY Normal NONE-MANY [facility] Comment on above: Performed By: #### D SANA #### [facility] [address] [place] [address] URINE BACTERIA FEW Normal <1+ [facility] Comment on above: Performed By: #### D SANA #### [facility] [address] [place] [address] URINE RBC 0-2 Normal 0-2 [facility] Comment on above: Performed By: #### D SANA #### [facility] [address] [place] [address] URINE WBC 3-5 Normal 0-3 [facility] Comment on above: Performed By: #### D SANA #### [facility] [address] [place] [address] ED.PDOCon 05-12-2023 ED.PDOC BETSY MESA Female [id number] Attending provider: [facility] [id number] Jeremy Lim 1995 28 DOS: 05/12/23 Hx/Exam [...] normal strength, no pronator drift, speech clear/fluent, 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 While every attempt has been made to dictate accurately, the system does make errors in transcribing the precise spoken word intended. 05/12/23 03:25 05/14/23 05:38 EKG - EKG EKG Interpretation: Preliminary ED Interpretation (Sinus rhythm, rate 96, SD 196, QRS 84, QT 350, normal axis. Unchanged compared to 02/13/2023.) Discharge Screen - Discharge Discharge Problem: Headache Disposition: HOME/SELF CARE Condition: Stable Instructions: DI for Headache Prescriptions: Ibuprofen 800 mg PO TID PRN 10 Days #30 tab PRN Reason: Transmission Status: Received by [facility] #[id number] Ondansetron [Zofran Odt] 4 mg PO Q6HR PRN 5 Days #20 tab PRN Reason: Transmission Status: Received by [facility] [facility] #[id number] Referrals: Call,On [Primary Care Provider] - Celso Mitchell [ACTIVE] - 3-5 Days (as needed) Dictated By: Jeremy Lim MD Dictated Date/Time:05/12/23 021 Electronically Signed Date/Time: 05/14/23 0549 [facility] HEAD W/O CONTRASTon 05-12-20 HEAD W/O CONTRAST BETSY MESA Female [id number] Ordering physician: Jeremy Lim LOC:ER [id number] Attending physician: 1995 28 DO S: 05/12/23 Acc#: [id number] Exam/Proc: HEAD W/O CONTRAST Dept: COMPUTED TOMOGRAPHY [...] Date/Time: 05/12/23300 Dictated Date/time: 05/12/23257 CC: Normal [facility] Laboratory studies (set)on Appearance (U) High CLEAR [facility] Bilirubin Ql (U) NEGATIVE [facility] Color (U) [facility] Glucose Ql (U) NEGATIVE [facility] Hemoglobin Ql (U) NEGATIVE [facility] Ketones Ql (U) NEGATIVE [facility] Leukocyte esterase Test strip Ql (U) High NEGATIVE [facility] Mucus Ql (Urine sed) <1+ [facility] Nitrite Ql (U) NEGATIVE [facility] pH (U) 6.0 [pH] 5.0-9.0 [facility] Protein Ql (U) NEGATIVE [facility] RBC LM.HPF (Urine sed) [#/Area] 0-2 [facility] Specific gravity (U) [Rel density] 1.025 1.003-1.035 [facility] Urine Bacteria <1+ [facility] Comment on above: Culture Pending Urine Squamous Epithelial Cells NONE-MANY [facility] Urine WBC 0-3 [facility] Comment on above: Culture Pending Urobilinogen Ql (U) 0.2 E.U./dL <=1.0 [facility] URINALYSIS W/ C S IF INDICAT EDon 05-12-2023 Appearance (U) Sl Cloudy Abnormal CLEAR [facility] Comment on above: Order Comment: What Is Urine Source? RandomWhat Is Urine Source? Random Performed By: #### D SANA #### [address] [address] Other Comment: Cultu re PendingCulture Pending Color (U) Lt. Yellow Normal [facility] Comment on above: Order Comment: What Is Urine Source? RandomWhat Is Urine Source? Random Performed By: #### D SANA #### [address] [address] Other Comment: Cultu re PendingCulture Pending Hemoglobin Ql (U) Negative Normal NEGATIVE [facility] Comment on above: Order Comment: What Is Urine Source? RandomWhat Is Urine Source? Random Performed By: #### D SANA #### [address] [address] Other Comment: Cultu re PendingCulture Pending pH (U) 6.0 [pH] Normal 5.0-9.0 [facility] Comment on above: Order Comment: What Is Urine Source? RandomWhat Is Urine Source? Random Performed By: #### D SANA #### [address] [address] Other Comment: Cultu re PendingCulture Pending URINE BILIRUBIN - DIPSTICK Negative Normal NEGATIVE [facility] Comment on above: Order Comment: What Is Urine Source? RandomWhat Is Urine Source? Random Performed By: #### D SANA #### [address] [address] Other Comment: Cultu re PendingCulture Pending URINE GLUCOSE - DIPSTICK Negative Normal NEGATIVE [facility] Comment on above: Order Comment: What Is Urine Source? RandomWhat Is Urine Source? Random Performed By: #### D SANA #### [address] [address] Other Comment: Cultu re PendingCulture Pending URINE KETONE Negative Normal NEGATIVE [facility] Comment on above: Order Comment: What Is Urine Source? RandomWhat Is Urine Source? Random Performed By: #### D SANA #### [address] [address] Other Comment: Cultu re PendingCulture Pending URINE LEUK ESTERASE 3+ Abnormal NEGATIVE [facility] Comment on above: Order Comment: What Is Urine Source? RandomWhat Is Urine Source? Random Performed By: #### D SANA #### [address] [address] Other Comment: Cultu re PendingCulture Pending URINE NITRITE - DIPSTICK Negative Normal NEGATIVE [facility] Comment on above: Order Comment: What Is Urine Source? RandomWhat Is Urine Source? Random Performed By: #### D SANA #### [place] [address] Other Comment: Cultu re PendingCulture Pending URINE PROTEIN - DIPSTICK Negative Normal NEGATIVE [facility] Comment on above: Order Comment: What Is Urine Source? RandomWhat Is Urine Source? Random Performed By: #### D SANA #### [place] [address] Other Comment: Cultu re PendingCulture Pending URINE SPEC GRAVITY, DIPSTICK 1.025 Normal 1.003-1.035 [facility] Comment on above: Order Comment: What Is Urine Source? RandomWhat Is Urine Source? Random Performed By: #### D SANA #### [place] [address] Other Comment: Cultu re PendingCulture Pending URINE UROBILINOGEN - DIPSTICK 0.2 E.U./dL Normal <=1.0 [facility] Comment on above: Order Comment: What Is Urine Source? RandomWhat Is Urine Source? Random Performed By: #### D SANA #### [address] [address] Other Comment: Cultu re PendingCulture Pending URINE MICROSCOPICon 05-12-20 23 Mucus Ql (Urine sed) SL AMT Normal <1+ [facility] Comment on above: Performed By: #### D SANA #### [place] [address] Other Comment: Cultu re PendingCulture Pending UR SQUAM EPITH MANY Normal NONE-MANY [facility] Comment on above: Performed By: #### D SANA #### [facility] [address] [place] [address] Other Comment: Cultu re PendingCulture Pending URINE BACTERIA 1+ Normal <1+ [facility] Comment on above: Performed By: #### D SANA #### [facility] [address] [place] [address] Other Comment: Cultu re PendingCulture Pending URINE RBC NONE SEEN Normal 0-2 [facility] Comment on above: Performed By: #### D SANA #### [facility] [address] [place] [address] Other Comment: Cultu re PendingCulture Pending URINE WBC 30-40 Normal 0-3 [facility] Comment on above: Performed By: #### D SANA #### [facility] [address] [place] [address] Other Comment: Cultu re PendingCulture Pending BASIC METABOLIC PANELon 07- Anion gap [Moles/Vol] 10.0 mmol/L Low 11-23 [facility] Comment on above: Performed By: #### B MP #### [facility] [address] [place] [address] Calcium [Mass/Vol] 8.5 mg/dL Normal 8.5-10.1 [facility] Comment on above: Performed By: #### B MP #### [facility] [address] [place] [address] Chloride [Moles/Vol] 111 mmol/L High 98-107 [facility] Comment on above: Performed By: #### B MP #### [facility] [address] [place] [address] CO2 [Moles/Vol] 24.0 mmol/L Normal 21-32 [facility] Comment on above: Performed By: #### B MP #### [facility] [address] [place] [address] Creatinine [Mass/Vol] 0.70 mg/dL Normal 0.55-1.02 [facility] Comment on above: Performed By: #### B MP #### [facility] [address] [place] [address] GFR > 60.0 [facility] Comment on above: Performed By: #### B MP #### [facility] [address] [place] [address] GFR AM > 60.0 Normal [facility] Comment on above: Result Comment: THE NORMAL LEVEL OF GFR VARIES ACCORDING TO AGE, SEX, AND BODY SIZE. A GFR LEVEL OF LESS THAN 60 ML/MIN REPRESENTS LOSS OF THE ADULT LEVEL OF NORMAL KIDNEY FUNCTION. Performed By: #### B MP #### [facility] [address] [place] [address] Glucose [Mass/Vol] 120 mg/dL High 70-100 [facility] Comment on above: Performed By: #### B MP #### [address] [address] Potassium [Moles/Vol] 3.6 mmol/L Normal 3.5-5.1 [facility] Comment on above: Performed By: #### B MP #### [address] [place] [address] Sodium [Moles/Vol] 142 mmol/L Normal 136-145 [facility] Comment on above: Performed By: #### B MP #### [address] [address] Urea nitrogen [Mass/Vol] 10.0 mg/dL Normal 7-18 [facility] Comment on above: Performed By: #### B MP #### [address] [address] CBC with AUTO DIFFon 07-18-2 023 BAS0 % 0.40 % Normal 0-2 [facility] Comment on above: Performed By: #### C BC #### [facility] [address] [place] [address] Basophils (Bld) [#/Vol] 0.0 10*3/uL Normal 0-0.1 [facility] Comment on above: Performed By: #### C BC #### [address] [place] [address] Eosinophils (Bld) [#/Vol] 0.2 10*3/uL Normal 0.0-1.80 [facility] Comment on above: Performed By: #### C BC #### [address] [address] Eosinophils/100 WBC (Bld) 2.8 % Normal 0-8 [facility] Comment on above: Performed By: #### C BC #### [address] [place] [address] GRAN # 3.9 K/uL Normal 2.2-9.1 [facility] Comment on above: Performed By: #### C BC #### [facility] [address] [place] [address] GRAN % 53.4 % Normal 42-80 [facility] Comment on above: Performed By: #### C BC #### [facility] [address] [place] [address] Hematocrit (Bld) [Volume fraction] 32.7 % Low 37.0-47.0 [facility] Comment on above: Performed By: #### C BC #### [facility] [address] [place] [address] Hemoglobin (Bld) [Mass/Vol] 10.8 g/dL Low 12.0-16.0 [facility] Comment on above: Performed By: #### C BC #### [address] [place] [address] Lymphocytes (Bld) [#/Vol] 2.6 10*3/uL Normal 1.0-4.0 [facility] Comment on above: Performed By: #### C BC #### [address] [place] [address] Lymphocytes/100 WBC (Bld) 36.3 % Normal 16-48 [facility] Comment on above: Performed By: #### C BC #### [facility] [address] [place] [address] MCV (RBC) [Entitic vol] 79.5 fL Low 80-97 [facility] Comment on above: Performed By: #### C BC #### [facility] [address] [place] [address] MEAN CORPUSCULAR HGB 26.1 pg Normal 26.0-32.0 [facility] Comment on above: Performed By: #### C BC #### [facility] [address] [place] [address] MEAN CORPUSCULAR HGB CONC 32.9 g/dL Normal 31.0-36.0 [facility] Comment on above: Performed By: #### C BC #### [address] [place] [address] MONO DISTRIB WIDTH 15.75 Normal 0-20 [facility] Comment on above: Result Comment: For ED adult patients suspected of sepsis, MDW<=20.0 does not rule out sepsis or risk of sepsis Performed By: #### C BC #### [facility] [address] [place] [address] Monocytes (Bld) [#/Vol] 0.5 10*3/uL Normal 0.1-1.7 [facility] Comment on above: Performed By: #### C BC #### [facility] [address] [place] [address] Monocytes/100 WBC (Bld) 7.1 % Normal 3-9 [facility] Comment on above: Performed By: #### C BC #### [facility] [address] [place] [address] Platelet mean volume (Bld) [Entitic vol] 9.8 fL Normal 6.6-10.5 [facility] Comment on above: Performed By: #### C BC #### [address] [place] [address] Platelets (Bld) [#/Vol] 165 10*3/uL Normal 140-450 [facility] Comment on above: Performed By: #### C BC #### [address] [place] [address] RBC (Bld) [#/Vol] 4.12 10*6/uL Low 4.20-5.50 [facility] Comment on above: Performed By: #### C BC #### [facility] [address] [place] [address] RED CELL DISTRI WIDTH 17.7 % High 11.0-15.5 [facility] Comment on above: Performed By: #### C BC #### [facility] [address] [place] [address] WBC (Bld) [#/Vol] 7.3 10*3/uL Normal 4.0-11.0 [facility] Comment on above: Performed By: #### C BC #### [facility] [address] [place] [address] CHEST-2 VIEWon 02-13-2023 CHEST-2 VIEW BETSY MESA Female [id number] Ordering physician: Leandra Keller LOC:ER [id number] Attending physician: 1995 27 DO S: 02/13/23 Acc#: [id number] Exam/Proc: CHEST-2 VIEW Dept: RADIOLOGY EXAMINATION: Exam [...] 02/13/2023 6:55:15 AM EST Workstation ID : [id number] REPORT SIGNATURE ON FILE Electronically Signed Date/Time: 02/13/23 0655 Dictated Date/time: 02/13/23 0652 CC: Normal [facility] D-DIMERon 02-13-2023 D-DIMER 0.48 mg/L FEU Normal 0.0-0.59 [facility] Comment on above: Result [...] therapy. Performed By: #### D SANA #### [address] [address] ED.PDOCon 02-13-2023 ED.PDOC LUÍS MESAKI Female [id number] Attending provider: [facility] [id number] Leandra Keller 1995 27 DOS: 07/18/23 Case endorsed to me this a.m. to [...] MD. Dictated Date/Time:02/13/23 0549 Electronically Signed Date/Time: 02/13/[address] [facility] LOWER EXT DVT RIGHTon 2022 LOWER EXT DVT RIGHT BETSY MSEA Female [id number] Ordering physician: Leandra Keller LOC:ER [id number] Attending physician: 1995 27 DO S: 02/13/23 Acc#: [id number] Exam/Proc: LOWER EXT DVT RIGHT Dept: ULTRASOUND [...] 02/13/2023 7:50:07 AM EST Workstation ID : [id number] REPORT SIGNATURE ON FILE Electronically Signed Date/Time: 02/13/23 0750 Dictated Date/time: 02/13/23 0749 CC: Normal [facility] Laboratory studies (set)on 0 02-13-2023 Anion gap [Moles/Vol] 10.0 mmol/L Low 06-21 [facility] Basophils (Bld) [#/Vol] 0.0 10*3/uL 0-0.1 [facility] Basophils/100 WBC (Bld) 0.40 % 0-2 [facility] Calcium [Mass/Vol] 8.5 mg/dL 8.5-10.1 [facility] [place] Chloride [Moles/Vol] 111 mmol/L High 98-107 Nishant ancchristine [facility] CO2 [Moles/Vol] 24.0 mmol/L 21-32 [facility] Creatinine [Mass/Vol] 0.70 mg/dL 0.55-1.02 All [facility] D-Dimer, Quantitative 0.48 mg/L FEU 0.0-0.59 [facility] Comment on above: The cut-off [...] therapy. Eosinophils (Bld) [#/Vol] 0.2 10*3/uL 0.0-1.80 [facility] Eosinophils/100 WBC (Bld) 2.8 % 0-8 [facility] Erythrocyte distribution width (RBC) [Ratio] 17.7 % High 11.0-15.5 [facility] Estimated GFR () [facility] Comment on above: THE NORMAL LEVEL OF GFR VARIES ACCORDING TO AGE, SEX, AND BODY SIZE. A GFR LEVEL OF LESS THAN 60 ML/MIN REPRESENTS LOSS OF THE ADULT LEVEL OF NORMAL KIDNEY FUNCTION. GFR/1.73 sq M.predicted among non-blacks MDRD (S/P/Bld) [Vol rate/Area] [facility] Glucose [Mass/Vol] 120 mg/dL High 70-100 [facility] Granulocytes (Bld) [#/Vol] 3.9 10*3/uL 2.2-9.1 [facility] Granulocytes/100 WBC (Bld) 53.4 % 42-80 [facility] Hematocrit (Bld) [Volume fraction] 32.7 % Low 37.0-47.0 [facility] Hemoglobin (Bld) [Mass/Vol] 10.8 g/dL Low 12.0-16.0 [facility] Lymphocytes (Bld) [#/Vol] 2.6 10*3/uL 1.0-4.0 [facility] Lymphocytes/100 WBC (Bld) 36.3 % 16-48 [facility] MCH (RBC) [Entitic mass] 26.1 pg 26.0-32.0 [facility] MCHC (RBC) [Mass/Vol] 32.9 g/dL 31.0-36.0 [facility] MCV (RBC) [Entitic vol] 79.5 fL Low 80-97 [facility] Monocyte distribution width Auto (Bld) [Entitic vol] 15.75 0-20 [facility] Comment on above: For ED adult patient s suspected of sepsis, MDW<=20.0 does not rule out sepsis or risk of sepsis Monocytes (Bld) [#/Vol] 0.5 10*3/uL 0.1-1.7 [facility] Monocytes/100 WBC (Bld) 7.1 % 3-9 [facility] Platelet mean volume (Bld) [Entitic vol] 9.8 fL 6.6-10.5 [facility] Platelets (Bld) [#/Vol] 165 10*3/uL 140-450 [facility] Potassium [Moles/Vol] 3.6 mmol/L 3.5-5.1 [facility] RBC (Bld) [#/Vol] 4.12 10*6/uL Low 4.20-5.50 [facility] Sodium [Moles/Vol] 142 mmol/L 136-145 [facility] Urea nitrogen [Mass/Vol] 10.0 mg/dL 7-18 [facility] WBC (Bld) [#/Vol] 7.3 10*3/uL 4.0-11.0 [facility] CT CHEST PULMONARY EMBOLISM W CONTRASTon 09-27-2022 [...] Beau Nunn MD 09/26/22 Final result Normal [facility] BMPon 09-26-2022 Anion gap [Moles/Vol] 11 mmol/L 9 - 17 mmol/L [facility] Calcium [Mass/Vol] 9.6 mg/dL 8.6 - 10. 4 mg/dL [facility] Chloride [Moles/Vol] 106 mmol/L 98 - 10 7 mmol/L [facility] CO2 [Moles/Vol] 22 mmol/L 20 - 31 mmol/L [facility] Creatinine [Mass/Vol] 0.59 mg/dL 0.50 - 0.90 mg/dL [facility] GFR/1.73 sq M.predicted MDRD (S/P/Bld) [Vol rate/Area] - PINF [facility] Comment on above: These results are [...] 124 mg/dL High 70 - 99 mg/dL [facility] Interpretation and review of laboratory results Abnormal [facility] Potassium [Moles/Vol] 3.6 mmol/L Low 3.7 - 5.3 mmol/L [facility] Sodium [Moles/Vol] 139 mmol/L 135 - 144 mmol/L [facility] Urea nitrogen [Mass/Vol] 7 mg/dL 6 - 20 mg/dL [facility] Basic Metabolic Profon 09-26 Anion gap [Moles/Vol] 11 mmol/L Normal 9-17 [facility] Comment on above: Performed By: #### D CHAPINCITO, BMP, HCG, CDP, TSH, MG, TROPI #### [facility] [address] [place] [address] [employer] De[employer]hand: Chaitanya Mtz MD Calcium [Mass/Vol] 9.6 mg/dL Normal 8.6-10.4 [facility] Comment on above: Performed By: #### D CHAPINCITO, BMP, HCG, CDP, TSH, MG, TROPI #### [facility] [address] [place] [address] [employer] De[employer]: Chaitanya Mtz MD Chloride [Moles/Vol] 106 mmol/L Normal 98-107 [facility] Comment on above: Performed By: #### D CHAPINCITO, BMP, HCG, CDP, TSH, MG, TROPI #### [facility] [address] [place] [address] [phone] [employer] De[employer]hand: Chaitanya Mtz MD CO2 [Moles/Vol] 22 mmol/L Normal 20-31 [facility] Comment on above: Performed By: #### D CHAPINCITO, BMP, HCG, CDP, TSH, MG, TROPI #### [facility] [address] [place] [address] [phone] [employer] De[employer]hand: Chaitanya Mtz MD Creatinine [Mass/Vol] 0.59 mg/dL Normal 0.50-0.90 [facility] Comment on above: Performed By: #### D CHAPINCITO, BMP, HCG, CDP, TSH, MG, TROPI #### [facility] [address] [place] [phone] [employer] De[employer]: Chaitanya Mtz MD GFR/1.73 sq M.predicted among non-blacks MDRD (S/P/Bld) [Vol rate/Area] mL/min/{1.73_m2} Normal >60 [facility] Comment on above: Result Comment: These [...] BMP, HCG, CDP, TSH, MG, TROPI #### [facility] [address] [place] [address] [phone] [employer]: Chaitanya Mtz MD Glucose [Mass/Vol] 124 mg/dL High 70-99 [facility] Comment on above: Performed By: #### D CHAPINCITO, BMP, HCG, CDP, TSH, MG, TROPI #### [facility] [address] [place], [place] [phone] [employer] De[employer]hand: Chaitanya Mtz MD Potassium [Moles/Vol] 3.6 mmol/L Low 3.7-5.3 [facility] Comment on above: Performed By: #### D CHAPINCITO, BMP, HCG, CDP, TSH, MG, TROPI #### [facility] [place], [place] [phone] [employer] Deckhand: Chaitanya Mtz MD Sodium [Moles/Vol] 139 mmol/L Normal 135-144 [facility] Comment on above: Performed By: #### D CHAPINCITO, BMP, HCG, CDP, TSH, MG, TROPI #### [facility] [address] [place] [address] [phone] [employer] Deckhand: Chaitanya Mtz MD Urea nitrogen [Mass/Vol] 7 mg/dL Normal 6-20 [facility] Comment on above: Performed By: #### D CHAPINCITO, BMP, HCG, CDP, TSH, MG, TROPI #### [facility] [address] [place] [address] [phone] [employer]: Chaitanya Mtz MD CBC with Auto Differentialon 09-26-2022 Absolute Eos # 0.09 [facility] Absolute Immature Granulocyte [facility] Absolute Lymph # 2.78 [facility] SECO URS [facility] Absolute [place] # 0.38 [facility] Basophils (Bld) [#/Vol] 0.03 10*3/uL [facility] Interpretation and review of laboratory results Abnormal [facility] NRBC Automated 0.0 0.0 per 100 WBC [facility] Platelet distribution width (Bld) [Ratio] 14.6 % High 11.8 - 14.4 % [facility] RBC (Bld) [#/Vol] ANISOCYTOSIS PRESENT [facility] Segmented neutrophils/100 WBC (Bld) 49 % 36 - 65 % [facility] Segs Absolute 3.16 [facility] CBC with Diffon 09-26-2022 Abs. Basophil 0.03 k/uL Normal 0.00-0.20 [facility] Comment on above: Performed By: #### D CHAPINCITO, BMP, HCG, CDP, TSH, MG, TROPI #### [facility] [address] [place] [address] [phone] [employer] De[employer]hand: Chaitanya Mtz MD Abs.Imm.Granulocyte <0.03 Normal 0.00-0.30 [facility] Comment on above: Performed By: #### D CHAPINCITO, BMP, HCG, CDP, TSH, MG, TROPI #### [facility] [address] [place] [address] [employer] De[employer]hand: Chaitanya Mtz MD Abs.Neutrophil (Seg) 3.16 k/uL Normal 1.50-8.10 [facility] Comment on above: Performed By: #### D CHAPINCITO, BMP, HCG, CDP, TSH, MG, TROPI #### [facility] [address] [place] [address] [employer] De[employer]hand: Chaitanya Mtz MD Eosinophils (Bld) [#/Vol] 0.09 10*3/uL Normal 0.00-0.44 [facility] Comment on above: Performed By: #### D CHAPINCITO, BMP, HCG, CDP, TSH, MG, TROPI #### [facility] [address] [place] [phone] [employer]: Chaitanya Mtz MD Erythrocyte distribution width (RBC) [Ratio] 14.6 % High 11.8-14.4 [facility] Comment on above: Performed By: #### D CHAPINCITO, BMP, HCG, CDP, TSH, MG, TROPI #### [facility] [address] [place] [phone] [employer]: Chaitanya Mtz MD Lymphocytes (Bld) [#/Vol] 2.78 10*3/uL Normal 1.10-3.70 [facility] Comment on above: Performed By: #### D CHAPINCITO, BMP, HCG, CDP, TSH, MG, TROPI #### [facility] [address] [place] [phone] [employer]hand: Chaitanya Mtz MD Monocytes (Bld) [#/Vol] 0.38 10*3/uL Normal 0.10-1.20 [facility] Comment on above: Performed By: #### D CHAPINCITO, BMP, HCG, CDP, TSH, MG, TROPI #### [address] [phone] [employer]: Chaitanya Mtz MD Neutrophil (Seg) 49 % Normal 36-65 [facility] Comment on above: Performed By: #### D CHAPINCITO, BMP, HCG, CDP, TSH, MG, TROPI #### [facility] [address] [place] [phone] [employer] De[employer]hand: Chaitanya Mtz MD NRBC Automated 0.0 per 100 WBC Normal 0.0 [facility] Comment on above: Performed By: #### D CHAPINCITO, BMP, HCG, CDP, TSH, MG, TROPI #### [facility] [address] [place] [phone] [employer]: Chaitanya Mtz MD RBC morphology finding Nom (Bld) ANISOCYTOSIS PRESENT Normal [facility] Comment on above: Performed By: #### D CHAPINCITO, BMP, HCG, CDP, TSH, MG, TROPI #### [facility] [address] [place] [phone] [employer]: Chaitanya Mtz MD Basophils/100 WBC (Bld) 1 % Normal 0-2 [facility] Comment on above: Performed By: #### D CHAPINCITO, BMP, HCG, CDP, TSH, MG, TROPI #### [facility] [address] [place] [phone] [employer]: Chaitanya Mtz MD Eosinophils/100 WBC (Bld) 1 % Normal 1-4 [facility] Comment on above: Performed By: #### D CHAPINCITO, BMP, HCG, CDP, TSH, MG, TROPI #### [facility] [address] [place] [address] [phone] [employer] De[employer]hand: Chaitanya Mtz MD Hematocrit (Bld) [Volume fraction] 34.4 % Low 36.3-47.1 [facility] Comment on above: Performed By: #### D CHAPINCITO, BMP, HCG, CDP, TSH, MG, TROPI #### [facility] [address] [place] [phone] [employer] De[employer]hand: Chaitanya Mtz MD Hemoglobin (Bld) [Mass/Vol] 10.6 g/dL Low 11.9-15.1 [facility] Comment on above: Performed By: #### D CHAPINCITO, BMP, HCG, CDP, TSH, MG, TROPI #### [facility] [address] [place] [phone] [employer] De[employer]hand: Chaitanya Mtz MD Immature granulocytes/100 WBC (Bld) 0 % Normal 0 [facility] Comment on above: Performed By: #### D CHAPINCITO, BMP, HCG, CDP, TSH, MG, TROPI #### [facility] [address] [place] [address] [phone] [employer]: Chaitanya Mtz MD Lymphocytes/100 WBC (Bld) 43 % Normal 24-43 [facility] Comment on above: Performed By: #### D CHAPINCITO, BMP, HCG, CDP, TSH, MG, TROPI #### [facility] [address] [place] [phone] [employer] De[employer]hand: Chaitanya Mtz MD MCH (RBC) [Entitic mass] 26.5 pg Normal 25.2-33.5 [facility] Comment on above: Performed By: #### D CHAPINCITO, BMP, HCG, CDP, TSH, MG, TROPI #### [address] [phone] [employer]: Chaitanya Mtz MD MCHC (RBC) [Mass/Vol] 30.8 g/dL Normal 28.4-34.8 [facility] Comment on above: Performed By: #### D CHAPINCITO, BMP, HCG, CDP, TSH, MG, TROPI #### [address] [phone] [employer]: Chaitanya Mtz MD MCV (RBC) [Entitic vol] 86.0 fL Normal 82.6-102.9 [facility] Comment on above: Performed By: #### D CHAPINCITO, BMP, HCG, CDP, TSH, MG, TROPI #### [address] [phone] [employer]: Chaitanya Mtz MD Monocytes/100 WBC (Bld) 6 % Normal 3-12 [facility] Comment on above: Performed By: #### D CHAPINCITO, BMP, HCG, CDP, TSH, MG, TROPI #### [address] [phone] [employer]: Chaitanya Mtz MD Platelet mean volume (Bld) [Entitic vol] 11.5 fL Normal 8.1-13.5 [facility] Comment on above: Performed By: #### D CHAPINCITO, BMP, HCG, CDP, TSH, MG, TROPI #### [address] [address] [employer] De[employer]: Chaitanya Mtz MD Platelets (Bld) [#/Vol] 201 10*3/uL Normal 138-453 [facility] Comment on above: Performed By: #### D CHAPINCITO, BMP, HCG, CDP, TSH, MG, TROPI #### [facility] [address] [place] [address] [phone] [employer] De[employer]hand: Chaitanya Mtz MD RBC (Bld) [#/Vol] 4.00 10*6/uL Normal 3.95-5.11 [facility] Comment on above: Performed By: #### D CHAPINCITO, BMP, HCG, CDP, TSH, MG, TROPI #### [facility] [address] [place], [place] [phone] [employer] Deckhand: Chaitanya Mtz MD WBC (Bld) [#/Vol] 6.5 10*3/uL Normal 3.5-11.3 [facility] Comment on above: Performed By: #### D CHAPINCITO, BMP, HCG, CDP, TSH, MG, TROPI #### [facility] [address] [place] [address] [employer] Deckhand: Chaitanya Mtz MD CT CHEST PULMONARY EMBOLISM W CONTRASTon 09-26-2022 No evidence of pulmonary embolism or acute pulmonary abnormality. [facility] EXAMINATION: CTA OF THE CHEST 09/26/2022 [...] No acute bone or soft tissue abnormality. [facility] Beau Nunn MD - 09/26/2022 EXAMINATION: [...] of pulmonary embolism or acute pulmonary abnormality. [employer] Phone: Radiology Study observation (narrative) [employer] Phone: CT CHEST PULMONARY EMBOLISM W CONTRASTOrdered By: Beau Nunn on 09-26-2022 [employer] Phone: D-Dimer Teston 09-26-2022 D-Dimer Test 0.50 mg/L FEU Normal [facility] Comment on above: Result Comment: When [...] BMP, HCG, CDP, TSH, MG, TROPI #### [facility] [place] [phone] [employer] Deckhand: Chaitanya Mtz MD D-Dimer, Quantitativeon 08-31 [employer] D-dimer FEU IA (Bld) [Mass/Vol] 0.50 ug/mL mg/L FEU [facility] [employer] Comment on above: When combined with a [...] more prevalent in patients with distal DVT. [facility] [employer] HCG Qualitative, Serumon hCG Qual Negative NEGATIVE [facility] Comment on above: Specimens with hCG l evels near the threshold of the test (25 mIU/mL) may give a negative or indeterminate result. In such cases, another test should be performed with a new specimen in 48-72 hours. If early is suspected clinically in this setting, correlation with quantitative serum b-hCG level is suggested. [facility] has confirmed the use of plasma for this test. This has not been cleared or approved by the U.S. Food and Drug Administration. The FDA has determined that such clearance is not necessary. [facility] HCG Screen, Bloodon 09-26-19 HCG Screen, Blood Negative Normal [facility]G [facility] Comment on above: Result Comment: Spec imens with hCG levels near the threshold of the test (25 mIU/mL) may give a negative or indeterminate result. In such cases, another test should be performed with a new specimen in 48-72 hours. If early is suspected clinically in this setting, correlation with quantitative serum b-hCG level is suggested. [facility] has confirmed the use of plasma for this test. This has not been cleared or approved by the U.S. Food and Drug Administration. The FDA has determined that such clearance is not necessary. Performed By: #### D CHAPINCITO, BMP, HCG, CDP, TSH, MG, TROPI #### [facility] [place] [address] [employer] Deckhand: Chaitanya Mtz MD Magnesiumon 09-26-2022 Magnesium [Mass/Vol] 2.0 mg/dL Normal 1.6-2.6 [facility] Comment on above: Performed By: #### D CHAPINCITO, BMP, HCG, CDP, TSH, MG, TROPI #### [facility] [place] [address] [employer] Deckhand: Chaitanya Mtz MD Magnesium [Mass/Vol] 2.0 mg/dL 1.6 - 2 .6 mg/dL [facility] [employer] No Panel Informationon 09-26 [facility] [employer] POC Glucose Fingerstickon Glucose [Mass/Vol] 116 mg/dL High 65 - 105 mg/dL [facility] Interpretation and review of laboratory results Abnormal [facility] TSHon 09-26-2022 TSH Qn 0.37 m[IU]/L [facility] Thyroid Stim. Horm.on 2022 Thyroid Stim. Horm. 0.37 uIU/mL Normal 0.30-5.00 [facility] Comment on above: Performed By: #### D CHAPINCITO, BMP, HCG, CDP, TSH, MG, TROPI #### [facility] [address] [place] [address] [employer] De[employer]hand: Chaitanya Mtz MD Troponinon 09-26-2022 Troponin, High Sens <6 Normal 0-14 [facility] Comment on above: Result Comment: High Sensitivity Troponin values cannot be compared with other Troponin methodologies. Performed By: #### D CHAPINCITO, BMP, HCG, CDP, TSH, MG, TROPI #### [facility] [address] [place], [place] [phone] [employer] De[employer]hand: Chaitanya Mtz MD Troponin I.cardiac DL <= 0.01 ng/mL [Mass/Vol] ng/L 0 - 14 ng/L [facility] Comment on above: High Sensitivity Tro ponin values cannot be compared with other Troponin methodologies. Laboratory studies (set)on 0 09-25-2022 Troponin 3.7 pg/mL 0-53.7 [facility] Comment on above: Troponin Reference R flip: Male: 0-78.5 pg/mL (ng/L) Female: 0-53.7 pg/mL (ng/L) Note: The new high sensitivity Troponin units are in pg/mL (ng/L) Albumin [Mass/Vol] 3.7 g/dL 3.4-5.0 [facility] Albumin/Globulin [Mass ratio] 1.0 {ratio} Low 1.1-1.8 [facility] ALP [Catalytic activity/Vol] 86 U/L 45-117 [facility] ALT [Catalytic activity/Vol] 18 U/L 12-78 [facility] Anion gap [Moles/Vol] 5.9 mmol/L Low 11-23 [facility] Appearance (U) CLEAR [facility] AST [Catalytic activity/Vol] 10 U/L Low 15-37 [facility] Basophils (Bld) [#/Vol] 0.0 10*3/uL 0-0.1 [facility] Basophils/100 WBC (Bld) 0.40 % 0-2 [facility] Bilirubin [Mass/Vol] 0.4 mg/dL 0.2-1.0 [facility] Bilirubin Ql (U) NEGATIVE [facility] Calcium [Mass/Vol] 8.8 mg/dL 8.5-10.1 [facility] Chloride [Moles/Vol] 110 mmol/L High 98-107 [facility] CK [Catalytic activity/Vol] 70 U/L 26-192 [facility] CO2 [Moles/Vol] 26.0 mmol/L 21-32 [facility] Color (U) [facility] Creatinine [Mass/Vol] 0.70 mg/dL 0.55-1.02 [facility] D-Dimer, Quantitative 0.45 mg/L FEU 0.0-0.59 [facility] Comment on above: The cut-off [...] therapy. Eosinophils (Bld) [#/Vol] 0.1 10*3/uL 0.0-1.80 [facility] Eosinophils/100 WBC (Bld) 2.3 % 0-8 [facility] Erythrocyte distribution width (RBC) [Ratio] 15.9 % High 11.0-15.5 [facility] Estimated GFR () [facility] Comment on above: THE NORMAL LEVEL OF GFR VARIES ACCORDING TO AGE, SEX, AND BODY SIZE. A GFR LEVEL OF LESS THAN 60 ML/MIN REPRESENTS LOSS OF THE ADULT LEVEL OF NORMAL KIDNEY FUNCTION. GFR/1.73 sq M.predicted among non-blacks MDRD (S/P/Bld) [Vol rate/Area] [facility] Globulin (S) [Mass/Vol] 3.5 g/dL 2.5-4.6 [facility] Glucose [Mass/Vol] 116 mg/dL High 70-100 [facility] Glucose Ql (U) NEGATIVE [facility] Granulocytes (Bld) [#/Vol] 3.0 10*3/uL 2.2-9.1 [facility] Granulocytes/100 WBC (Bld) 50.3 % 42-80 [facility] HCG Qn (U) [facility] Hematocrit (Bld) [Volume fraction] 32.0 % Low 37.0-47.0 [facility] Hemoglobin (Bld) [Mass/Vol] 10.4 g/dL Low 12.0-16.0 [facility] Hemoglobin Ql (U) NEGATIVE [facility] Ketones Ql (U) NEGATIVE [facility] Leukocyte esterase Test strip Ql (U) NEGATIVE [facility] Lymphocytes (Bld) [#/Vol] 2.3 10*3/uL 1.0-4.0 [facility] Lymphocytes/100 WBC (Bld) 38.5 % 16-48 [facility] MCH (RBC) [Entitic mass] 26.8 pg 26.0-32.0 [facility] MCHC (RBC) [Mass/Vol] 32.5 g/dL 31.0-36.0 [facility] MCV (RBC) [Entitic vol] 82.2 fL 80-97 [facility] Monocyte distribution width Auto (Bld) [Entitic vol] 17.39 0-20 [facility] Comment on above: For ED adult patient s suspected of sepsis, MDW<=20.0 does not rule out sepsis or risk of sepsis Monocytes (Bld) [#/Vol] 0.5 10*3/uL 0.1-1.7 [facility] Monocytes/100 WBC (Bld) 8.5 % 3-9 [facility] Nitrite Ql (U) NEGATIVE [facility] pH (U) 6.0 [pH] 5.0-9.0 [facility] Platelet mean volume (Bld) [Entitic vol] 9.4 fL 6.6-10.5 [facility] Platelets (Bld) [#/Vol] 185 10*3/uL 140-450 [facility] Potassium [Moles/Vol] 4.1 mmol/L 3.5-5.1 [facility] Protein [Mass/Vol] 7.2 g/dL 6.0-8.3 [facility] Protein Ql (U) NEGATIVE [facility] RBC (Bld) [#/Vol] 3.89 10*6/uL Low 4.20-5.50 [facility] Sodium [Moles/Vol] 138 mmol/L 136-145 [facility] Specific gravity (U) [Rel density] 1.003-1.035 [facility] Urea nitrogen [Mass/Vol] 8.0 mg/dL 7-18 [facility] Urobilinogen Ql (U) 0.2 E.U./dL <=1.0 [facility] WBC (Bld) [#/Vol] 5.9 10*3/uL 4.0-11.0 [facility] LABORATORYOrdered By: Rupali Jones on 03-08-2022 Blood Glucose Testing Reason Routine (03/08/22 7:11 AM) [facility] Glucose [Mass/Vol] 158 mg/dL Invalid Interpretation Code 70 - 110 mg/dL [facility] LABORATORYOrdered By: Nelson Tran on 03-07-2022 Glucose [Mass/Vol] 110 mg/dL Invalid Interpretation Code 70 - 110 mg/dL [facility] Blood Glucose Testing Reason Routine (03/07/22 6:15 PM) [facility] Glucose [Mass/Vol] 210 mg/dL Invalid Interpretation Code 70 - 110 mg/dL [facility] LABORATORYOrdered By: Linh Mix on 2022 Blood Glucose Testing Reason Routine (03/06/22 8:45 PM) [facility] LABORATORYOrdered By: SYSTEM SYSTEM on [...] sugar, Notify physician 4 (03/06/22 8:45 PM) [facility] LABORATORYOrdered By: Abigail marie on [...] Comment on above: Result Comment: Note s [id number] LABORATORYOrdered By: Nancy del rio on 03-05-2022 [...] Invalid Interpretation Code 70 - 110 mg/dL [facility] LABORATORYOrdered By: Nancy senior on 01-17-2022 Glucose [Mass/Vol] 155 mg/dL Invalid Interpretation Code 70 - 110 mg/dL [facility] Glucose [Mass/Vol] 195 mg/dL Invalid Interpretation Code 70 - 110 mg/dL [facility] LABORATORYOrdered By: Trisha Pena on [...] 8.1 10^3/mcL Workflow SS Neutrophils/100 WBC (Bld) 58.1 % [...] review and authentication has not occurred. Normal [facility] ER PHYSICIAN ASSESSMENT RECORDS : [employer] Event Time: 12/27/2021 01:45 [facility]CA Status: Signed [facility] [place] [[id number]] Mid-Level Chart (V2b) / 1995 Chart created at 12/27/2021 01:33 by [employer] [place] Chart closed at 12/27/2021 01:57 Entry in Emergency Department at 12/26/2021 22:16, departure at 12/27/2021 02:09 Patient Name: B[place]y [place]a Record Number: [id number] Date: 12/27/2021 01:33 Entered Department at: 12/26/2021 22:16 Patient Seen at: 12/27/2021 00:38 Historian: Patient PCP: [facility] [facility] [place] Chief Complaint:RIGHT CALF PAIN, 29 WEEKS /PT [...] in the area. She denies any additional [facility] PATIENT NAME: BETSY MESA J [address] MEDICAL REC #: [id number] [place] [address] EMERGENCY DEPARTMENT REPORT EMERGENCY DEPARTMENT PHYSICIAN symptoms including fever, chills, chest pain, shortness of breath, nausea, vomiting. She is currently 29 weeks . She has no complaints regarding the itself. She [facility] her . She has a history [...] Normal and Normal Memory/Judgment Medical Decision Making [facility] PATIENT NAME: BETSY MESA [address] [place] MEDICAL REC #: [id number] [place] [address] EMERGENCY DEPARTMENT REPORT EMERGENCY DEPARTMENT PHYSICIAN As [...] own or she can follow-up with her BOOSTER PUMP OPERATOR to have one scheduled for her. I am more (more content not included)... [facility] LABORATORYOrdered By: Whitney Chand on 05-18-2021 [...] definite cause of disease. Laboratories within the [facility] and its territories are required to report [...] management decisions. This assay was developed by [employer] and distributed under an Emergency Use Authorization (EUA) granted by the FDA for the qualitative detection of SARS-CoV-2 nucleic acid. Provider and patient fact sheets can be found at https://www.[facility].gov/[employer] nick/335480/download and https://www.[employer].gov/az nick/687739/download. Respiratory Pathogens PCR Panel. _ Expected Result: Not Detected [employer] Upper Respiratory Pathogens PCR Panel can detect [...] management decisions. This assay was developed by [employer] and distributed under an Emergency Use Authorization (EUA) granted by the FDA for the qualitative detection of SARS-CoV-2 nucleic acid. Provider and patient fact sheets can be found at https://www.[facility] health.gov/[employer] nick/650837/download and https://www.[employer].gov/az nick/880311/download. Normal [facility] Comment on above: Performed By: #### B FRP2 #### [address] [address] Chlamydia and GC PCR Panelon 03-16-2021 Chlamydia [...] such as suspected child abuse or molestation. [facility] Comment on above: Performed By: #### C TN #### [address] [address] CR Chest Portableon 03-15-20 21 CR Chest Portable Patient Name: BETSY MESA Diagnostic Radiology ACCESSION EXAM DATE/TIME PROCEDURE ORDERING PROVIDER [id number] 03/15/2021 22:23 EDT CR Chest Portable CARLIT[facility] ENGLISH CPT code 31569 Reason For Exam (CR Chest Portable) cough [...] WENDELL Transcribed Date and Time: 03/15/2021 10:26 [facility] ED Provider Noteon ED Provider Note I was not involved i n this patient's care TESS Jeffers 03/15/21 2077 [facility] ED Provider Note [facility] EMERGENCY DEPT EMERGENCY DEPARTMENT ENCOUNTER Pt Name: Betsy Msea Birthdate 1995 Date of evaluation: 03/15/2021 Provider: [...] Gatherings with Friends and Family: ? Attends Church Services: ? Active Member of Clubs or [...] ?C) Temporal 97 18 98 % 5' 10" (1.778 m) 180 lb (81.6 kg) Physical Exam Vitals and nursing note reviewed. Exam conducted with a industrial design intern present. Constitutional: General: She is not in [...] No t (more content not included)... Normal [facility] XR CHEST PORTABLEOrdered By: Carlitos English on 03-15-2021 Patient Name: BETSY MESA Diagnostic Radiology ACCESSION EXAM DATE/TIME PROCEDURE ORDERING PROVIDER [id number] 03/15/2021 22:23 EDT CR Chest Portable [employer] ENGLISH CPT code 73246 Reason For Exam (CR Chest Portable) cough [...] WENDELL Transcribed Date and Time: 03/15/2021 10:26 [facility] Work Phone: [facility] Incoming Radiology Results From [facility] - 03/15/2021 10:28 PM EDT Patient Name: BETSY MESA Diagnostic Radiology ACCESSION EXAM DATE/TIME PROCEDURE ORDERING PROVIDER [id number] 03/15/2021 22:23 EDT CR Chest Portable [employer] ENGLISH CPT code 75251 Reason For Exam (CR Chest Portable) cough [...] WENDELL Transcribed Date and Time: 03/15/2021 10:26 [facility] Work Phone: [facility] Work Phone: Basic Metabolic Panelon 080 Calcium [Mass/Vol] 9.5 mg/dL Normal 8.4-10.4 [facility] Comment on above: Performed By: #### H EMDF, TROPN, BMP3, QWAL2 #### [address] [place] [address] Anion gap [Moles/Vol] 6 mmol/L Normal 3-13 [facility] Comment on above: Performed By: #### H EMDF, TROPN, BMP3, QWAL2 #### [facility] [address] [place] [address] CO2 [Moles/Vol] 23 mmol/L Normal 22-30 [facility] Comment on above: Performed By: #### H EMDF, TROPN, BMP3, QWAL2 #### [address] [place] [address] Creatinine [Mass/Vol] 0.72 mg/dL Normal 0.52-1.25 [facility] Comment on above: Performed By: #### H EMDF, TROPN, BMP3, QWAL2 #### [facility] [address] [place] [address] eGFR OTHER > 90.0 Normal >60 [facility] Comment on above: Result Comment: KDIG [...] #### H EMDF, TROPN, BMP3, QWAL2 #### [facility] [address] [place], [place] GFR/1.73 sq M.predicted among blacks MDRD (S/P/Bld) [Vol rate/Area] mL/min/{1.73_m2} Normal >60 [facility] Comment on above: Performed By: #### H EMDF, TROPN, BMP3, QWAL2 #### [address] [place] [address] Glucose [Mass/Vol] 145 mg/dL High 70-100 [facility] Comment on above: Performed By: #### H EMDF, TROPN, BMP3, QWAL2 #### [address] [place] [address] Urea nitrogen [Mass/Vol] 9 mg/dL Normal 7-20 [facility] Comment on above: Performed By: #### H EMDF, TROPN, BMP3, QWAL2 #### [address] [place] [address] Chloride [Moles/Vol] 108 mmol/L High 98-107 [facility] Comment on above: Performed By: #### H EMDF, TROPN, BMP3, QWAL2 #### [address] [place] [address] Potassium [Moles/Vol] 3.7 mmol/L Normal 3.5-5.1 [facility] Comment on above: Performed By: #### H EMDF, TROPN, BMP3, QWAL2 #### [address] [place] [address] Sodium [Moles/Vol] 138 mmol/L Normal 135-145 [facility] Comment on above: Performed By: #### H EMDF, TROPN, BMP3, QWAL2 #### [facility] [facility] [address] [place] [address] Basic Metabolic PanelOrdered By: Sherin Dawkins on 03-07-2021 Anion gap [Moles/Vol] 6 mmol/L 3 - 13 mmol/L [employer] Work Phone: Calcium [Mass/Vol] 9.5 mg/dL 8.4 - 10. 4 mg/dL [facility] Work Phone: Chloride [Moles/Vol] 108 mmol/L High 98 - 10 7 mmol/L [facility] Work Phone: CO2 [Moles/Vol] 23 mmol/L 22 - 30 mmol/L [facility] Work Phone: Creatinine [Mass/Vol] 0.72 mg/dL 0.52 - 1.25 mg/dL [facility] Work Phone: EGFR IF NonAfrican East Timorese >90.0 >60 mL/min [employer] Work Phone: Comment on above: KDIGO guidelines [...] MDRD (S/P/Bld) [Vol rate/Area] mL/min/{1.73_m2} >60 mL/min [facility] Work Phone: Glucose [Mass/Vol] 145 mg/dL High 70 - 100 mg/dL [facility] Work Phone: Interpretation and review of laboratory results Abnormal [facility] Work Phone: Potassium [Moles/Vol] 3.7 mmol/L 3.5 - 5.1 mmol/L [facility] Work Phone: Sodium [Moles/Vol] 138 mmol/L 135 - 145 mmol/L [facility] Work Phone: Urea nitrogen (BldV) [Mass/Vol] 9 mg/dL 7 - 20 mg/dL [facility] Work Phone: Test Performed by [facility] Work Phone: [employer] Work Phone: Complete Urinalysison 2020 Amorphous Crystal Few Abnormal Negative [facility] Comment on above: Result Comment: . Performed By: #### C UA2 #### [facility] [address] [place], [place] Appearance (U) Turbid Abnormal Clear [facility] Comment on above: Result Comment: . Performed By: #### C UA2 #### [facility] [place], [place] Bacteria Moderate Abnormal Negative [facility] Comment on above: Result Comment: . Performed By: #### C UA2 #### [facility] [place], [place] Bilirubin,Urine Negative Normal Negative [facility] Comment on above: Result Comment: . Performed By: #### C UA2 #### [facility] [place], [place] Cast, Hyaline Negative Normal Negative [facility] Comment on above: Result Comment: . Performed By: #### C UA2 #### [facility] [address] [place], [place] Color (U) Yellow Normal Lt. Yellow [facility] Comment on above: Result Comment: . Performed By: #### C UA2 #### [facility] [address] [place], [place] Glucose Ql (U) Normal Normal Normal (<70) [facility] Comment on above: Result Comment: . Performed By: #### C UA2 #### [address] [place], [place] Ketone,Urine 10 mg/dL Abnormal Negative [facility] Comment on above: Result Comment: . Performed By: #### C UA2 #### [address] [place], [place] Leukocytes,Urine 500 Robin/uL Abnormal Negative [facility] Comment on above: Result Comment: . Performed By: #### C UA2 #### [address] [place], [place] Mucous Threads Many Abnormal Negative [facility] Comment on above: Result Comment: . Performed By: #### C UA2 #### [address] [place], [place] Nitrites,Urine Negative Normal Negative [facility] Comment on above: Result Comment: . Performed By: #### C UA2 #### [address] [place], [place] Occult Blood,Urine Negative Normal Negative [facility] Comment on above: Result Comment: . Performed By: #### C UA2 #### [address] [place], [place] pH,Urine 6.0 Normal 5.0-8.0 [facility] Comment on above: Result Comment: . Performed By: #### C UA2 #### [address] [place], [place] Protein (U) [Mass/Vol] 20 mg/dL Abnormal Negative [facility] Comment on above: Result Comment: . Performed By: #### C UA2 #### [address] [place], [place] RBC, Urine 26 - 50 Abnormal 0-2 [facility] Comment on above: Result Comment: . Performed By: #### C UA2 #### [address] [place] [address] Specific [place],Urine 1.015 Normal 1.005 - 1.030 [facility] Comment on above: Result Comment: . Performed By: #### C UA2 #### [facility] [address] [place] [address] Squamous Epithelial 26 - 50 Abnormal 3-5 [facility] Comment on above: Result Comment: . Performed By: #### C UA2 #### [facility] [address] [place] [address] Urobilinogen,Urine 2 mg/dL Abnormal Normal (0-1) [facility] Comment on above: Result Comment: . Performed By: #### C UA2 #### [facility] [address] [place], [place] WBC, Urine 26 - 50 Abnormal 0-5 [facility] Comment on above: Result Comment: . Performed By: #### C UA2 #### [address] [place] [address] ED Provider Noteon ED Provider Note [facility] [...] heart. She states she just feels overall "funny. "She denies any abdominal pain chest pain shortness [...] Gatherings with Friends and Family: ? Attends Church Services: ? Active Member of Clubs or [...] the Emergency (more content not included)... Normal [facility] HCG Qualitative, SerumOrdere d By: Sherin Dawkins on 03-07-2021 hCG Qual Negative [employer] Work Phone: Comment on above: Reference Range: NEG ATIVE Effective 10/10/2019, the reference interval for the qualitative test has been updated. This test detects hCG at concentrations of 10 mIU/L or greater in serum. Test Performed by [facility], [address] [place] [address] [employer] Work Phone: [employer] Work Phone: Hemogram (CBC) w/Auto DiffOr dered By: Sherin Dawkins on 03-07-2021 Absolute Baso # 0.0 10*3/uL 0.0 - 0.2 10*3/uL [employer] Work Phone: Absolute Neut # 4.4 10*3/uL [...] fraction] 40.6 % 35.0 - 47.0 % [facility] Work Phone: Hemoglobin.gastrointes tinal spec 1 Ql (Stl) 13.6 g/dL 11.7 - 16.0 g/dL [facility] Work Phone: Interpretation and review of laboratory results Abnormal [facility] Work Phone: Lymphocytes (Bld) [#/Vol] 2.9 10*3/uL 1.0 - 4.3 10*3/uL [facility] Work Phone: Lymphocytes/100 WBC (Bld) 36.8 % 20.0 - 40.0 % [facility] Work Phone: MCH (RBC) [Entitic mass] 30.0 pg 26.0 - 34.0 pg [facility] Work Phone: MCHC (RBC) [Mass/Vol] 33.6 % 32.0 - 36.0 % [facility] Work Phone: MCV (RBC) [Entitic vol] 89.4 fL 79.0 - 98.0 fL [facility] Work Phone: Monocytes (Bld) [#/Vol] 0.5 10*3/uL 0.0 - 0.8 10*3/uL [facility] Work Phone: Monocytes/100 WBC (Bld) 5.9 % 2.0 - 10.0 % [employer] Work Phone: Platelet distribution width (Bld) [Ratio] 14.3 % 11.5 - 14.5 % [employer] Work Phone: Platelet mean volume (Bld) [Entitic vol] 10.2 fL 7.4 - 10.4 fL [employer] Work Phone: Platelets (Bld) [#/Vol] 183 10*3/uL 140 - 440 10*3/uL [facility] Work Phone: RBC (Bld) [#/Vol] 4.54 10*6/uL 3.80 - 5.2 0 10*6/uL [employer] Work Phone: WBC (Bld) [#/Vol] 7.8 10*3/uL 3.6 - 10.7 10*3/uL [employer] Work Phone: Test Performed by [facility], [address] [place] [address] [facility] Work Phone: [employer] Work Phone: Hemogram w/ Autodiffon 03-07 Abs Baso Cnt 0.0 10*3/uL Normal 0.0-0.2 [facility] Comment on above: Performed By: #### H EMDF, TROPN, BMP3, QWAL2 #### [facility] [address] [place] [phone] Abs Neutrophile Cnt 4.4 10*3/uL Normal 1.8-7.0 [facility] Comment on above: Performed By: #### H EMDF, TROPN, BMP3, QWAL2 #### [facility] [address] [place] [phone] Basophils/100 WBC (Bld) 0.5 % Normal 0.0-2.0 [facility] Comment on above: Performed By: #### H EMDF, TROPN, BMP3, QWAL2 #### [address] [place], [place] Eosinophils (Bld) [#/Vol] 0.0 10*3/uL Normal 0.0-0.5 [facility] Comment on above: Performed By: #### H EMDF, TROPN, BMP3, QWAL2 #### [address] [address] [place], [place] Eosinophils/100 WBC (Bld) 0.5 % Low 1.0-6.0 [facility] Comment on above: Performed By: #### H EMDF, TROPN, BMP3, QWAL2 #### [address] Erythrocyte distribution width (RBC) [Ratio] 14.3 % Normal 11.5-14.5 [facility] Comment on above: Performed By: #### H EMDF, TROPN, BMP3, QWAL2 #### [address] Granulocytes/100 WBC (Bld) 56.3 % Normal 40.0-80.0 [facility] Comment on above: Performed By: #### H EMDF, TROPN, BMP3, QWAL2 #### [address] Hematocrit (Bld) [Volume fraction] 40.6 % Normal 35.0-47.0 [facility] Comment on above: Performed By: #### H EMDF, TROPN, BMP3, QWAL2 #### [address] Hemoglobin (Bld) [Mass/Vol] 13.6 g/dL Normal 11.7-16.0 [facility] Comment on above: Performed By: #### H EMDF, TROPN, BMP3, QWAL2 #### [address] Lymphocytes (Bld) [#/Vol] 2.9 10*3/uL Normal 1.0-4.3 [facility] Comment on above: Performed By: #### H EMDF, TROPN, BMP3, QWAL2 #### [address] [place], [place] Lymphocytes/100 WBC (Bld) 36.8 % Normal 20.0-40.0 [facility] Comment on above: Performed By: #### H EMDF, TROPN, BMP3, QWAL2 #### [address] [place], [place] MCH (RBC) [Entitic mass] 30.0 pg Normal 26.0-34.0 [facility] Comment on above: Performed By: #### H EMDF, TROPN, BMP3, QWAL2 #### [address] [address] [place], [place] MCHC 33.6 % Normal 32.0-36.0 [facility] Comment on above: Performed By: #### H EMDF, TROPN, BMP3, QWAL2 #### [address] MCV (RBC) [Entitic vol] 89.4 fL Normal 79.0-98.0 [facility] Comment on above: Performed By: #### H EMDF, TROPN, BMP3, QWAL2 #### [address] Monocytes (Bld) [#/Vol] 0.5 10*3/uL Normal 0.0-0.8 [facility] Comment on above: Performed By: #### H EMDF, TROPN, BMP3, QWAL2 #### [address] Monocytes/100 WBC (Bld) 5.9 % Normal 2.0-10.0 [facility] Comment on above: Performed By: #### H EMDF, TROPN, BMP3, QWAL2 #### [address] Platelet mean volume (Bld) [Entitic vol] 10.2 fL Normal 7.4-10.4 [facility] Comment on above: Performed By: #### H EMDF, TROPN, BMP3, QWAL2 #### [facility] [address] [place] [address] Platelets (Bld) [#/Vol] 183 10*3/uL Normal 140-440 [facility] Comment on above: Performed By: #### H EMDF, TROPN, BMP3, QWAL2 #### [address] RBC (Bld) [#/Vol] 4.54 10*6/uL Normal 3.80-5.20 [facility] Comment on above: Performed By: #### H EMDF, TROPN, BMP3, QWAL2 #### [address] WBC (Bld) [#/Vol] 7.8 10*3/uL Normal 3.6-10.7 [facility] Comment on above: Performed By: #### H EMDF, TROPN, BMP3, QWAL2 #### [facility] [address] Troponin Ion 03-07-2021 Troponin I.cardiac [Mass/Vol] ng/mL Normal 0.000-0.034 [facility] Comment on above: Result Comment: . Performed By: #### H EMDF, TROPN, BMP3, QWAL2 #### [facility] [address] Troponin [id number] By: Isreal Kincaid on 03-07-2021 Troponin I.cardiac [Mass/Vol] ng/mL 0.000 - 0.034 ng/mL [facility] Work Phone: Comment on above: . Test Per[facility] by [facility], [address] [place] [address] [facility] Work Phone: [facility] Work Phone: UrinalysisOrdered By: Sherin hanson on 03-07-2021 AMORPHOUS CRYSTAL Few Abnormal Negative /[HPF] [facility] Work Phone: Comment on above: . Appearance (U) Turbid Abnormal Clear NA [facility] Work Phone: Comment on above: . Bacteria, UA Moderate Abnormal Negative /[HPF] [facility] Work Phone: Comment on above: . Bilirubin Urine Negative Negative mg/dL [facility] Work Phone: Comment on above: . Color (U) Yellow Lt. Yellow NA [facility] Work Phone: Comment on above: . Glucose, Ur Normal Normal (<70) mg/dL [facility] Work Phone: Comment on above: . Hyaline Casts, UA Negative Negative /[LPF] [facility] Work Phone: Comment on above: . Interpretation and review of laboratory results Abnormal [facility] Work Phone: Ketones Ql (U) 10 mg/dL Abnormal Negative [facility] Work Phone: Comment on above: . LEUKOCYTES, UA 500 Abnormal Negative Robin/uL [facility] Work Phone: Comment on above: . Mucous Threads Many Abnormal Negative /[LPF] [facility] Work Phone: Comment on above: . Nitrite, Urine Negative Negative NA [facility] Work Phone: Comment on above: . Occult Blood,Urine Negative Negative mg/dL [facility] Work Phone: Comment on above: . pH (U) 6.0 [pH] [facility] Work Phone: Comment on above: . Protein (U) [Mass/Vol] 20 mg/dL Abnormal Negative [employer] Work Phone: Comment on above: . RBC, UA 26-50 Abnormal 0 - 2 /[HPF] [facility] Work Phone: Comment on above: . Specific [place], Urine 1.[address] [facility] Work Phone: Comment on above: . Squam Epithel, UA 26-50 Abnormal 3 - 5 /[HPF] [facility] Work Phone: Comment on above: . Urobilinogen, Urine 2 mg/dL Abnormal Normal (0-1) [facility] Work Phone: Comment on above: . WBC, UA 26-50 Abnormal 0 - 5 /[HPF] [facility] Work Phone: Comment on above: . Test Performed by [facility], [address] [place] [address] [facility] Work Phone: [employer] Work Phone: hCG Qual Pregon 03-07-2021 hCG Qual Preg Negative Normal [facility] Comment on above: Result Comment: Refe rence Range: NEGATIVE Effective 10/10/2019, the reference interval for the qualitative test has been updated. This test detects hCG at concentrations of 10 mIU/L or greater in serum. Performed By: #### H EMDF, TROPN, BMP3, QWAL2 #### [facility] [address] [place] [phone] Chlam/GC-DNA Amplifiedon Chlam/GC-DNA Amplified Test performed at [facility] Chlamydia trachomatis DNA NOT DETECTED Neisseria gonorrhoeae DNA NOT DETECTED Reference range NOT DETECTED Method: Strand Displacement Amplification-BD Pro[employer] Assay Comment: A negative result does not preclude C.trachomatis or N. gonorrhoeae infection because results are dependent on adequate specimen collection, absence of inhibitors, and sufficient DNA to be detected. Normal [facility] Comment on above: Performed By: #### T &S #### [place] [address] HIV Screenon 01-07-2019 HIV Screen Nonreactive Normal Nonreactive [facility] Comment on above: Performed By: #### 3 HIV #### [place] [address] Hepatitis Acute Panelon 12-28 HAV Ab IgM Negative Normal Negative [facility] Comment on above: Performed By: #### H EPP #### [place] [address] HB Core Ab IgM Negative Normal Negative [facility] Comment on above: Performed By: #### H EPP #### [place] [address] Hepatitis C Ab Negative Normal Negative [facility] Comment on above: Performed By: #### H EPP #### [facility] [address] [place] [address] Hep.B Surface Ag Negative Normal Negative [facility] Comment on above: Performed By: #### H EPP #### [facility] [address] [place] [address] Rapid Bact.Vaginosison 01-07 Rapid Bact.Vaginosis see below Normal Negative [facility] Comment on above: Result Comment: Posi tive for the presence of bacterial vaginosis. Performed By: #### R APBV #### [place] [address] Rapid Trichomonas Agon 01-07 Rapid Trichomonas Ag see below Normal Negative [facility] Comment on above: Result Comment: No T richomonas antigen present or the antigen level is below detection limit of the assay (2500 organisms/mL). Performed By: #### R APTR #### [place] [address] Rubella, Quantitativeon 12-28 Rubella, Quantitative 22.80 IU/mL Normal [facility] Comment on above: Result Comment: Not Immune <5.0 IU/mL Indeterminate >=5.0 IU/mL <=9.9 IU/ml Suggest repeat testing in 2-3 weeks Immune >=10.0 IU/mL Performed By: #### R UB3 #### [place] [address] Chlam/GC-DNA Amplifiedon Chlam/GC-DNA Amplified Test performed at [facility] Chlamydia trachomatis DNA NOT DETECTED Neisseria gonorrhoeae DNA NOT DETECTED Reference range NOT DETECTED Method: Strand Displacement Amplification-BD ProbeTec Assay Comment: A negative result does not preclude C.trachomatis or N. gonorrhoeae infection because results are dependent on adequate specimen collection, absence of inhibitors, and sufficient DNA to be detected. Normal [facility] Comment on above: Performed By: #### T &S #### [place] [address] Cult Urineon 01-06-2019 Cult Urine Test performed at [facility] ORGANISM: *Streptococcus agalactiae (Group B Strep) (ID: 1) >100,000 CFU/ml Normal [facility] Comment on above: Performed By: #### C _URI #### [facility] [address] [place] [address] Hemogramon 01-06-2019 Erythrocyte distribution width (RBC) [Ratio] 14.2 % Normal 11.7-14.4 [facility] Comment on above: Performed By: #### C BC1 #### [facility] [address] [place] [address] Hematocrit (Bld) [Volume fraction] 36.1 % Normal 34.1-44.9 [facility] Comment on above: Performed By: #### C BC1 #### [facility] [address] [place] [address] Hemoglobin (Bld) [Mass/Vol] 12.0 g/dL Normal 11.2-15.7 [facility] Comment on above: Performed By: #### C BC1 #### [facility] [address] [place] [address] MCH (RBC) [Entitic mass] 29.6 pg Normal 25.6-32.2 [facility] Comment on above: Performed By: #### C BC1 #### [facility] [address] [place] [address] MCHC (RBC) [Mass/Vol] 33.2 % Normal 31.6-34.8 [facility] Comment on above: Performed By: #### C BC1 #### [facility] [address] [place] [address] MCV (RBC) [Entitic vol] 89.1 fL Normal 79.4-94.8 [facility] Comment on above: Performed By: #### C BC1 #### [facility] [address] [place] [address] Platelet mean volume (Bld) [Entitic vol] 11.8 fL Normal 9.4-12.3 [facility] Comment on above: Performed By: #### C BC1 #### [facility] [address] [place] [address] Platelets (Bld) [#/Vol] 179 thou/cmm Low 182-369 [facility] Comment on above: Performed By: #### C BC1 #### [facility] [address] [place] [address] RBC (Bld) [#/Vol] 4.05 mil/cmm Normal 3.93-5.22 [facility] Comment on above: Performed By: #### C BC1 #### [facility] [address] [place] [address] RDW SD 46.3 fl Normal 36.4-46.3 [facility] Comment on above: Performed By: #### C BC1 #### [facility] [address] [place] [address] WBC (Bld) [#/Vol] 8.27 thou/cmm Normal 3.98-10.04 [facility] Comment on above: Performed By: #### C BC1 #### [place] [address] Pap,Cyto Gynon 01-06-2019 Pap,Cyto Food Processor Test performed at [place] [address] NAME: BETSY MESA REQUESTING: EKTA SANCHEZ CNM [...] 03, 2019 Page 1 of 1 Normal [facility] Comment on above: Performed By: #### T &S #### [place] [address] RPRon 01-06-2019 Reagin Ab RPR Ql (S) Non-reactive Normal Nonreactive A [facility] Comment on above: Performed By: #### R SD #### [place] [address] Type and Screenon 01-06-2019 ABO group Nom (Bld) O Normal [facility] Comment on above: Performed By: #### T &S #### [place] [address] Comment Out Patient [facility] Comment on above: Performed By: #### T &S #### [place] [address] RH Type Positive [facility] Comment on above: Performed By: #### T &S #### [place] [address] HCG,Totalon 12-19-2018 HCG Qn 195533.0 m[IU]/mL Normal [facility] Comment on above: Result Comment: Male < or = 1 Non- female 1-3 Gestational Age: 0.2-1 Week 5 - 50 1-2 Weeks 50 - 500 2-3 Weeks 100 - 5000 3-4 Weeks 500 - 65921 4-5 weeks 1000 - 34919 5-6 weeks 28975 - 100,000 6-8 weeks 98555 - 200,000 2-3 months 27010 - 100,000 Performed By: #### H CG #### [place] [address] GROUP B BETA STREP SCREENon 08-10-2017 GROUP B BETA STREP SCREEN SPECIMEN NUMBER: [id number] [facility] Comment on above: Result Comment: GROU P B BETA STREP SCREEN REPORT STATUS: FINAL SITE/TYPE: RECTAL/VAGINAL CULTURE RESULT(S): NO GROUP B STREPTOCOCCUS ISOLATEDPathology Laboratories, Inc. [address] [place], [place] [address]Laboratory Director: Nimesh Colon M.D.CLIA No. [id number] [facility] Accreditation No. [id number] HEMOGLOBIN ELECTROPHORESISon 05-08-2017 Hemoglobin mass conc (Bld) [...] Test performed at [facility] [address] [place] [address] CLIA Number [id number] [facility] Accreditation Number [id number] CBC W/AUTO DIFFon 05-04-2017 % NEUTROPHILS 61.4 [...] (RBC) 3.20 10*6/uL Low 4.00-5.50 Path ology [facility] Hematocrit (HCT) 29.0 % Low 36.0-48.0 Patholog y [facility] Hemoglobin mass conc (Bld) 9.5 g/dL [...] TRICH VAGINALIS rRNA Negative Normal NEGATIVE [facility] Comment on above: Result Comment: Asher araujo methodology is nucleic acid amplification by plant hr manager mediated amplification (TMA) utilizing the [employer] Combo 2 Assay. GLUCOSEon 05-04-2017 Glucose mass conc 114 mg/dL High 70-100 [email or web address] Comment on above: Result Comment: DIAG NOSTIC THRESHOLDS FOR DIABETES AND IMPAIRED FASTING GLUCOSE (IFG) FASTING PLASMA GLUCOSE NORMAL <100 MG/DL IFG 100-125 MG/DL DIABETES >/= 126 MG/DL GLUCOSE, POST GLUCOLAon DRAW TIME 1 HOUR POST-GLUCOLA Normal Patho logy [facility] Comment on above: Result Comment: DIAG NOSTIC THRESHOLDS FOR DIABETES AND IMPAIRED GLUCOSE TOLERANCE(IGT) USING ORAL GLUCOSE TOLERANCE TEST: 2-HOUR PLASMA GLUCOSE NORMAL <140 MG/DL IGT 140-199 MG/DL DIABETES >/= 200 MG/DLPathology Laboratories, [facility]. [address] [place], [place] [address]Laboratory Director: David Benitez M.D.CLIA No. [id number] [facility] Accreditation No. [id number] Glucose mass conc 108 mg/dL Normal <140 [email or web address] CYSTIC FIBROSIS GENOTYPE, 13 9 MUTATIONSon 04-05-2017 CF 139 INTERPRETATION Negative Normal [facility] MUTATION 1 Not Detected Normal [facility] POSITIVE FAMILY HISTORY? No Normal [facility] SOURCE Blood Normal [facility] Comment on above: Result Comment: Inte rpretation: This patient is negative for the cystic fibrosismutations analyzed, including the 23 mutations recommended forscreening by the [place] [employer] and AmericanCollege of [...] 1 in 28 1 in 588 (0.2%)Ashkenazi Islam 1 in 29 1 in 610 (0.2%) [...] Obstetrics and Gynecology, by next-generation sequencingusing the icanbuyDx Cystic Fibrosis assay. Reference sequenceis [id number]. The following mutations were analyzed:[id number] c.1A>G c.115C>T c.178G>Tc.200C>T c.223C>T c.254G>A c.262_263delTT c.273+1G>Ac.274-1G>A [...] c.3302T>A c.3310G>T c.3472C>Tc.3484C>T c.3528delC c.3587C>G c.3611G>A c.3612G>Ac.3659delC c.3717+54934D>T c.3731G>A c.3744delA c.3752G>Ac.3773_3774insT c.3846G>A c.3873+1G>A c.3884_3885insT c.3909C>Gc.3937C>T c.3964-78_4242+577del c.4077_4080delTGTTinsAA c.4251delAConditionally reported variants:c.1210-12T[5_9] c.1516A>G c.1519A>G c.1523T>GElectronically Signed by David Nash M.D. Test performed at [facility] [address] [place] [address], [address] [place] [address] Digital Advisor: David Nash M.D. IA Number [id number] [facility] Accreditation Number [id number] TESTING LOCATION [employer] Comment on above: Result Comment: Test performed at [address] [address] CLIA Number [id number] HEMOGLOBIN ELECTROPHORESISon 04-03-2017 Hemoglobin mass conc (Bld) [...] Test performed at [facility] [address] [place] [address] CLIA Number [id number] [facility] Accreditation Number [id number] QUADRUPLE SCREENING TEST WIT H INTERPRETATIONon 04-03-2017 Calc Trisomy 18 risk 1:31855 Normal [facility] DETERMINED BY: LMP Normal [facility] [...] (age, lab results 1:9000 Normal [facility] DS/T21 risk age alone 1:1141 Normal [facility] Neural tube defect interpreta Normal [facility] Comment on above: Result Comment: --- [...] a normal . Neural tube defect risk 1:24252 Normal [facility] AFP 38.8 NG/ML Normal [facility] INHIBIN A 211 PG/ML Normal Pathol [facility]gy [facility] Comment on above: Result Comment: Test performed at [facility] [address] [place] [address] CLIA Number [id number] [facility] Accreditation Number [id number] UE3 2.00 NG/ML Normal [facility] [...] FAMILY HISTORY OF NTD NO Normal [facility] GESTATIONAL AGE 19.6 WEEKS Normal [facility] HCG Qn 37.6 IU/ML Normal [facility] INITIAL/REPEAT INITIAL Normal [facility] INSULIN DEP. DIABETIC NO Normal [facility] INTERPRETATION: Negative Normal [facility] Comment on above: Result Comment: SCRE EN NEGATIVE FOR OPEN NEURAL TUBE DEFECT. SCREEN NEGATIVE FOR DOWN SYNDROME. SCREEN NEGATIVE FOR TRISOMY 18. SEE ANALYSIS BELOW FOR SPECIFIC RISK ASSESSMENT. NEURAL TUBE DEFECT RISK NOT INCREASED Normal [facility] NUMBER OF GESTATIONS 1 Normal Path [facility] RACE BLACK Normal [facility] SMOKER? YES Normal [facility] TRISOMY 18 ASSESSMENT NOT INCREASED Normal [facility] Weight 78.9264 kg Normal [facility] VARICELLA ZOSTER IGGon 04-03 VARICELLA ZOSTER IGG 477 INDEX Normal SEE BELOW [facility] Comment on above: Result Comment: INTE [...] Test performed at [facility] [address] [place] [address] CLIA Number [id number] [facility] Accreditation Number [id number] Pathology [facility] [employer]. [address] [place], [place] [address]Laboratory Director: David Benitez M.D.CLIA No. [id number] [facility] Accreditation No. [id number] PROFILE 2 017 ABO group O Normal [facility] Comment on above: Result Comment: Test performed at [address] [address] CLIA NUMBER [id number] ANTIBODY SCREEN Negative Normal NEGATIVE [facility] Comment on above: Result Comment: Test performed at [place] [address] CLIA NUMBER [id number] Rh type Positive Normal [facility] Comment on above: Result Comment: Test performed at [address] [address] CLIA NUMBER [id number] URINE CULTUREon 03-30-2017 Urine culture, bacteria SPECIMEN NUMBER: [id number] [facility] Comment on above: Result Comment: URIN E CULTURE REPORT STATUS: FINAL SITE/TYPE: CLEAN CATCH/MIDSTREAM CULTURE RESULT(S): NEGATIVE FOR URINARY TRACT PATHOGENS(i.e. no predominant organism present). GROWTH OF MIXED MARILU NOTED MOST CONSISTENT WITH CONTAMINATION. (i.e.skin marilu/distal urethral marilu). CHLAMYDIA/N. GONORRHOEAE/T. VAGINALIS, AMPLIFIED PROBEon 03-29-2017 CHLAM TRACHOMATIS rRNA: Negative Normal NEGATIVE [facility] NEISS GONORRHOEAE rRNA Negative Normal [facility]IVE [facility] SOURCE: VAGINA [facility] TRICH VAGINALIS rRNA Positive Abnormal NEGATIVE [facility] Comment on above: Result Comment: Asher araujo methodology is nucleic acid amplification by plant hr manager mediated amplification (TMA) utilizing the [employer]pt[employer] Combo [...] HEPATITIS B SURFACE AG Negative Normal NEGATIVE [facility] RPR SCREEN NON-REACTIVE Normal NON-REACTIVE [...] (Leukocytes) 6.7 10*3/uL Normal 3.7-10.8 [facility] TOTAL HCGon 03-29-2017 [place] [address].0 m[IU]/mL Normal Patholog y [facility] Comment on above: Result Comment: TOTA [...] Time Vital Sign Value Performing Clinician [facility] 05-14-2025 13:43-0400 Diastolic Blood Pressure Non-Invasive 78 mm[Hg] CASEY MOULTON MD [facility] 05-14-2025 13:43-0400 Heart rate 67 /min CASEY MOULTON MD [facility] 05-14-2025 13:43-0400 Systolic Blood Pressure Non-Invasive 122 mm[Hg] CASEY MOULTON MD [facility] 05-14-2025 13:04-0400 Diastolic Blood Pressure Non-Invasive 74 mm[Hg] CASEY MOLUTON MD [facility] 05-14-2025 13:04-0400 Heart rate 78 /min CASEY MOULTON MD [facility] 05-14-2025 13:04-0400 Respiratory rate 16 /min CASEY MOULTON MD [facility] 05-14-2025 13:04-0400 Systolic Blood Pressure Non-Invasive 108 mm[Hg] CASEY MOULTON MD [facility] 05-14-2025 12:50-0400 Respiratory rate 16 /min CASEY MOULTON MD [facility] 05-14-2025 12:42-0400 Diastolic Blood Pressure Non-Invasive 77 mm[Hg] CASEY MOULTON MD [facility] 05-14-2025 12:42-0400 Heart rate 68 /min CASEY MOULTON MD [facility] 05-14-2025 12:42-0400 Respiratory rate 15 /min CASEY MOULTON MD [facility] 05-14-2025 12:42-0400 Systolic Blood Pressure Non-Invasive 109 mm[Hg] CASEY MOULTON MD [facility] 05-14-2025 12:06-0400 Body temperature 97.34 [degF] CASEY MOULTON MD [facility] 05-14-2025 12:05-0400 Respiratory Rate - Anes 0 br/min CASEY MOULTON MD [facility] 05-14-2025 12:00-0400 Respiratory Rate - Anes 16 br/min CASEY MOULTON MD [facility] 05-14-2025 11:55-0400 Respiratory Rate - Anes 18 br/min CASEY MOULTON MD [facility] 05-14-2025 11:38-0400 Body height 177.8 cm CASEY MOULTON MD [facility] 05-14-2025 11:38-0400 Body temperature 97.88 [degF] CASEY MOULTON MD [facility] 05-14-2025 11:38-0400 Body weight 107.8 kg CASEY MOULTON MD [facility] 05-14-2025 11:38-0400 Heart rate 89 /min CASEY MOULTON MD [facility] 05-10-2025 03:54-0400 Body temperature 97.1 [degF] Dr. Nelson Ulloa DO Work Phone: [facility] 05-10-2025 03:54-0400 Diastolic blood pressure 91 mm[Hg] Dr. Nelson Ulloa DO Work Phone: [facility] 05-10-2025 03:54-0400 Heart rate 77 /min Dr. Nelson Ulloa DO Work Phone: [facility] 05-10-2025 03:54-0400 Respiratory rate 16 /min Dr. Nelson Ulloa DO Work Phone: [facility] 05-10-2025 03:54-0400 SaO2% (BldA) [Mass fraction] 99 % Dr. Nelson Ulloa DO Work Phone: [facility] 05-10-2025 03:54-0400 Systolic blood pressure 140 mm[Hg] Dr. Nelson Ulloa DO Work Phone: [facility] 05-10-2025 01:59-0400 Body height 177.[address] Nelson Ulloa DO Work Phone: [facility] 05-10-2025 01:59-0400 Body mass index (BMI) [Ratio] 34.7 kg/m2 Dr. Nelson Ulloa DO Work Phone: [facility] 05-10-2025 01:59-0400 Body weight 109.[address] Nelson Ulloa DO Work Phone: [facility] 05-06-2025 22:07-0400 Body temperature 97.2 [degF] No Primary Care Physician [facility] 05-06-2025 22:07-0400 Diastolic blood pressure 87 mm[Hg] No Primary Care Physician [facility] 05-06-2025 22:07-0400 Heart rate 74 /min No Primary Care Physician [facility] 05-06-2025 22:07-0400 Respiratory rate 16 /min No Primary Care Physician [facility] 05-06-2025 22:07-0400 SaO2% (BldA) [Mass fraction] 100 % No Primary Care Physician [facility] 05-06-2025 22:07-0400 Systolic blood pressure 133 mm[Hg] No Primary Care Physician [facility] 05-06-2025 18:00-0400 Body height 177.8 cm No Primary Care Physician [facility] 05-06-2025 18:00-0400 Body mass index (BMI) [Ratio] 33.8 kg/m2 No Primary Care Physician [facility] 05-06-2025 18:00-0400 Body weight 106.91 kg No Primary Care Physician [facility] 05-03-2025 23:35-0400 Body temperature 97.6 [degF] No Primary Care Physician [facility] 05-03-2025 23:35-0400 Diastolic blood pressure 87 mm[Hg] No Primary Care Physician [facility] 05-03-2025 23:35-0400 Heart rate 77 /min No Primary Care Physician [facility] 05-03-2025 23:35-0400 Respiratory rate 18 /min No Primary Care Physician [facility] 05-03-2025 23:35-0400 SaO2% (BldA) [Mass fraction] 100 % No Primary Care Physician [facility] 05-03-2025 23:35-0400 Systolic blood pressure 132 mm[Hg] No Primary Care Physician [facility] 05-03-2025 19:30-0400 Body height 177.8 cm No Primary Care Physician [facility] 05-03-2025 19:30-0400 Body mass index (BMI) [Ratio] 34.4 kg/m2 No Primary Care Physician [facility] 05-03-2025 19:30-0400 Body weight 108.9 kg No Primary Care Physician [facility] 03-23-2025 01:40-0400 Body temperature 99 [degF] No Primary Care Physician [facility] 03-23-2025 01:40-0400 Diastolic blood pressure 88 mm[Hg] No Primary Care Physician [facility] 03-23-2025 01:40-0400 Heart rate 80 /min No Primary Care Physician [facility] 03-23-2025 01:40-0400 Respiratory rate 16 /min No Primary Care Physician [facility] 03-23-2025 01:40-0400 SaO2% (BldA) [Mass fraction] 100 % No Primary Care Physician [facility] 03-23-2025 01:40-0400 Systolic blood pressure 128 mm[Hg] No Primary Care Physician [facility] 03-22-2025 23:22-0400 Body height 177.8 cm No Primary Care Physician [facility] 03-22-2025 23:22-0400 Body mass index (BMI) [Ratio] 34.2 kg/m2 No Primary Care Physician [facility] 03-22-2025 23:22-0400 Body weight 108.2 kg No Primary Care Physician [facility] 02-05-2025 02:56-0400 Body temperature 97.4 [degF] No Primary Care Physician [facility] 02-05-2025 02:56-0400 Diastolic blood pressure 83 mm[Hg] No Primary Care Physician [facility] 02-05-2025 02:56-0400 Heart rate 68 /min No Primary Care Physician [facility] 02-05-2025 02:56-0400 Respiratory rate 16 /min No Primary Care Physician [facility] 02-05-2025 02:56-0400 SaO2% (BldA) [Mass fraction] 99 % No Primary Care Physician [facility] 02-05-2025 02:56-0400 Systolic blood pressure 125 mm[Hg] No Primary Care Physician [facility] 02-05-2025 01:12-0400 Body height 177.8 cm No Primary Care Physician [facility] 02-05-2025 01:12-0400 Body mass index (BMI) [Ratio] 33.3 kg/m2 No Primary Care Physician [facility] 02-05-2025 01:12-0400 Body weight 105.2 kg No Primary Care Physician [facility] 01-12-2025 01:55-0400 Body temperature 98.1 [degF] No Primary Care Physician [facility] 01-12-2025 01:55-0400 Diastolic blood pressure 73 mm[Hg] No Primary Care Physician [facility] 01-12-2025 01:55-0400 Heart rate 78 /min No Primary Care Physician [facility] 01-12-2025 01:55-0400 Respiratory rate 14 /min No Primary Care Physician [facility] 01-12-2025 01:55-0400 SaO2% (BldA) [Mass fraction] 100 % No Primary Care Physician [facility] 01-12-2025 01:55-0400 Systolic blood pressure 122 mm[Hg] No Primary Care Physician [facility] 01-11-2025 21:48-0400 Body height 177.8 cm No Primary Care Physician [facility] 01-11-2025 21:48-0400 Body mass index (BMI) [Ratio] 33.3 kg/m2 No Primary Care Physician [facility] 01-11-2025 21:48-0400 Body weight 105.23 kg No Primary Care Physician [facility] 09-30-2024 11:44-0500 Diastolic Blood Pressure Non-Invasive 93 mm[Hg] MARLENA LOWERY DO [facility] 09-30-2024 11:44-0500 Heart rate 84 /min MARLENA LOWERY [employer] [facility] 09-30-2024 11:44-0500 Respiratory rate 16 /min MARLENA LOWERY DO [facility] 09-30-2024 11:44-0500 Systolic Blood Pressure Non-Invasive 137 mm[Hg] MARLENA NEVEST DO [facility] 09-30-2024 10:12-0500 Blood Pressure Location MARLENA NEVEST DO [facility] 09-30-2024 10:12-0500 Blood Pressure Method MARLENA LOWERY DO [facility] 09-30-2024 10:12-0500 Body temperature 97.88 [degF] MARLENA NEVEST DO [facility] 09-30-2024 10:12-0500 Diastolic Blood Pressure Non-Invasive 78 mm[Hg] MARLENA LOWERY [employer] [facility] 09-30-2024 10:12-0500 Heart rate 94 /min MARLENA LOWERY [employer] [facility] 09-30-2024 10:12-0500 Respiratory rate 18 /min MARLENA LOWERY [employer] [facility] 09-30-2024 10:12-0500 Systolic Blood Pressure Non-Invasive 128 mm[Hg] MARLENA LOWERY DO [facility] 05-06-2024 15:11-0400 Body mass index (BMI) [Ratio] 30.2 kg/m2 Leela Currie MD Work Phone: [facility] 05-06-2024 15:11-0400 Body weight 96.16 kg Leela Currie MD Work Phone: [facility] 05-06-2024 15:11-0400 Diastolic blood pressure 70 mm[Hg] Leela Currie MD Work Phone: [facility] 05-06-2024 15:11-0400 Heart rate 102 /min Leela Currie MD Work Phone: [facility] 05-06-2024 15:11-0400 Respiratory rate 18 /min Leela Currie MD Work Phone: [facility] 05-06-2024 15:11-0400 Systolic blood pressure 108 mm[Hg] Leela Currie MD Work Phone: [facility] 05-01-2024 13:45-0400 Body mass index (BMI) [Ratio] 30.49 kg/m2 Jose Plotts SOFTWARE WRITER.CNM Work Phone: [facility] 05-01-2024 13:45-0400 Body weight 97.07 kg Jose Plotts SOFTWARE WRITER.CNM Work Phone: [facility] 05-01-2024 13:45-0400 Diastolic blood pressure 70 mm[Hg] Jose Plotts SOFTWARE WRITER.CNM Work Phone: [facility] 05-01-2024 13:45-0400 Systolic blood pressure 108 mm[Hg] Jose Plotts SOFTWARE WRITER.CNM Work Phone: [facility] 04-28-2024 11:36-0400 Body height 178.4 cm Sushil Haury SOFTWARE WRITER.SAS ETL DEVELOPER Work Phone: [facility] 04-28-2024 11:36-0400 Body mass index (BMI) [Ratio] 30.72 kg/m2 Sushil Haury SOFTWARE WRITER.SAS ETL DEVELOPER Work Phone: [facility] 04-28-2024 11:36-0400 Body weight 97.8 kg Sushil Haury SOFTWARE WRITER.SAS ETL DEVELOPER Work Phone: [facility] 04-28-2024 11:36-0400 Diastolic blood pressure 68 mm[Hg] Sushil Haury SOFTWARE WRITER.SAS ETL DEVELOPER Work Phone: [facility] 04-28-2024 11:36-0400 Systolic blood pressure 116 mm[Hg] Sushil Haury SOFTWARE WRITER.SAS ETL DEVELOPER Work Phone: [facility] 10-14-2023 22:57-0400 Body temperature 98.4 [degF] Jig Boring [employer] Operator [employer] [facility] 10-14-2023 22:57-0400 Body weight 104.326 Jig Boring Machine [employer] [facility] 10-14-2023 22:57-0400 Diastolic blood pressure 88 mm[Hg] Jig Boring Machine Operator [employer] [facility] 10-14-2023 22:57-0400 Heart rate 94 /min Jig Boring Machine [employer] [facility] 10-14-2023 22:57-0400 Respiratory rate 16 /min Jig Boring Machine [employer] [facility] 10-14-2023 22:57-0400 SaO2% (BldA) [Mass fraction] 100 % Jig Boring Machine [employer] [facility] 10-14-2023 22:57-0400 Systolic blood pressure 141 mm[Hg] Jig Boring Machine Operator [employer] [facility] 08-11-2023 13:10-0500 Body temperature 97.1 [degF] Jig Boring Machine Operator [employer] [facility] 08-11-2023 13:10-0500 Body weight 102.058 Jig Boring Machine Operator [employer] [facility] 08-11-2023 13:10-0500 Diastolic blood pressure 94 mm[Hg] Jig Boring Machine Operator [employer] [facility] 08-11-2023 13:10-0500 Heart rate 91 /min Jig Boring Machine [employer] [facility] 08-11-2023 13:10-0500 Respiratory rate 16 /min Jig Boring Machine Operator [employer] [facility] 08-11-2023 13:10-0500 SaO2% (BldA) [Mass fraction] 100 % Jig Boring Machine Operator [employer] [facility] 08-11-2023 13:10-0500 Systolic blood pressure 126 mm[Hg] Jig Boring Machine Operator [employer] [facility] 05-12-2023 03:52-0400 Heart rate 104 /min Jig Boring Machine Operator [employer] [facility] 05-12-2023 03:47-0400 Body temperature 97.7 [degF] Jig Boring Machine Operator [employer] [facility] 05-12-2023 03:47-0400 Body weight 97.795 Jig Boring Machine Operator [employer] [facility] 05-12-2023 03:47-0400 Diastolic blood pressure 106 mm[Hg] Jig Boring Machine Operator [employer] [facility] 05-12-2023 03:47-0400 Respiratory rate 18 /min J[employer] Boring Machine Operator [employer] [facility] 05-12-2023 03:47-0400 SaO2% (BldA) [Mass fraction] 100 % J[employer] B[employer] [facility] 05-12-2023 03:47-0400 Systolic blood pressure 148 mm[Hg] Jig Boring Machine Operator [employer] [facility] 09-26-2022 23:37-0500 Respiratory rate 18 /min Marcelo Robles MD Work Phone: [facility] [employer] [facility] [employer] 09-26-2022 21:40-0500 SaO2% (BldA) [Mass fraction] 96 % Marcelo Robles MD Work Phone: [facility] 09-26-2022 20:45-0500 Diastolic blood pressure 93 mm[Hg] Marcelo Robles MD Work Phone: [facility] [employer] [facility] [employer] 09-26-2022 20:45-0500 Systolic blood pressure 135 mm[Hg] Marcelo Robles MD Work Phone: [facility] [employer] 09-26-2022 20:18-0500 Body height 170.2 cm Marcelo Robles MD Work Phone: [facility] [employer] 09-26-2022 20:18-0500 Body mass index (BMI) [Ratio] 33.05 kg/m2 Marcelo Robles MD Work Phone: [facility] 09-26-2022 20:18-0500 Body weight 95.71 kg Marcelo Robles MD Work Phone: [facility] 09-26-2022 20:04-0500 Body temperature 98.4 [degF] Marcelo Robles MD Work Phone: [facility] 09-26-2022 20:04-0500 Heart rate 114 /min Marcelo Robles MD Work Phone: [facility] 09-25-2022 14:15-0500 Diastolic blood pressure 81 mm[Hg] Tod Filmer [facility] 09-25-2022 14:15-0500 Heart rate 80 /min Tod Filmer [facility] 09-25-2022 14:15-0500 Respiratory rate 16 /min Tod Filmer [facility] 09-25-2022 14:15-0500 SaO2% (BldA) [Mass fraction] 98 % Tod Filmer [facility] 09-25-2022 14:15-0500 Systolic blood pressure 123 mm[Hg] Tod Filmer [facility] 09-25-2022 12:15-0500 Body temperature 96.9 [degF] Tod Filmer [facility] 09-25-2022 12:15-0500 Body weight 96.61 kg Tod Filmer [facility] 03-08-2022 10:00-0400 Heart rate 87 /min JOSSIE HAYES MD [address] [place] [id number] 03-08-2022 10:00-0400 Mean blood pressure 100 mm[Hg] JOSSIE HAYES MD [address] [place] [id number] 03-08-2022 10:00-0400 Systolic blood pressure 134 mm[Hg] JOSSIE HAYES MD [address] [place] [id number] 03-08-2022 07:11-0400 Body temperature 98.06 [degF] JOSSIE HAYES MD [address] [place] [id number] 03-08-2022 07:11-0400 Diastolic blood pressure 97 mm[Hg] JOSSIE HAYES MD [address] [place] [id number] 03-08-2022 07:11-0400 Heart rate 81 /min JOSSIE HAYES MD [address] [place] [id number] 03-08-2022 07:11-0400 Mean blood pressure 112 mm[Hg] JOSSIE HAYES MD [address] [place] [id number] 03-08-2022 07:11-0400 Respiratory rate 18 /min JOSSIE HAYES MD [address] [place] [id number] 03-08-2022 07:11-0400 Systolic blood pressure 141 mm[Hg] JOSSIE HAYES MD [address] [place] [id number] 03-08-2022 04:43-0400 Diastolic blood pressure 83 mm[Hg] JOSSIE HAYES MD [address] [place] [id number] 03-08-2022 04:43-0400 Heart rate 75 /min JOSSIE HAYES MD [address] [place] [id number] 03-08-2022 04:43-0400 Mean blood pressure 101 mm[Hg] JOSSIE HAYES MD [address] [place] [id number] 03-08-2022 04:43-0400 Respiratory rate 16 /min JOSSIE HAYES MD [address] [place] [id number] 03-08-2022 04:43-0400 Systolic blood pressure 136 mm[Hg] JOSSIE HAYES MD [facility] 03-07-2022 23:00-0400 Body temperature 98.42 [degF] JOSSIE HAYES MD [facility] 03-07-2022 23:00-0400 Respiratory rate 16 /min JOSSIE HAYES MD [facility] 03-07-2022 16:57-0400 Body temperature 98.6 [degF] JOSSIE HAYES MD [facility] 03-05-2022 10:05-0400 Body height 177.8 cm JOSSIE HAYES MD [facility] 03-05-2022 10:05-0400 Body weight 109.1 kg JOSSIE HAYES MD [facility] 03-05-2022 10:05-0400 Body weight 34.51 kg/m2 JOSSIE HAEYS MD [facility] 01-18-2022 03:00-0400 Body temperature 98.06 [degF] MICHI VASSAS DO [facility] 01-18-2022 03:00-0400 Diastolic blood pressure 64 mm[Hg] MICHI VASSAS DO [facility] 01-18-2022 03:00-0400 Heart rate 79 /min MICHI VASSAS DO [facility] 01-18-2022 03:00-0400 Mean blood pressure 83 mm[Hg] MICHI VASSAS DO [facility] 01-18-2022 03:00-0400 Respiratory rate 16 /min MICHI VASSAS DO [facility] 01-18-2022 03:00-0400 Systolic blood pressure 120 mm[Hg] MICHI VASSAS DO [facility] 01-17-2022 23:00-0400 Body temperature 97.88 [degF] MICHI VASSAS DO [facility] 01-17-2022 23:00-0400 Diastolic blood pressure 79 mm[Hg] MICHI VASSAS DO [facility] 01-17-2022 23:00-0400 Heart rate 98 /min MICHI VASSAS DO [facility] 01-17-2022 23:00-0400 Mean blood pressure 94 mm[Hg] MICHI VASSAS DO [facility] 01-17-2022 23:00-0400 Respiratory rate 14 /min MICHI VASSAS DO [facility] 01-17-2022 23:00-0400 Systolic blood pressure 123 mm[Hg] MICHI VASSAS DO [facility] 01-17-2022 19:30-0400 Body temperature 98.06 [degF] MICHI VASSAS DO [facility] 01-17-2022 19:30-0400 Diastolic blood pressure 60 mm[Hg] MICHI VASSAS DO [facility] 01-17-2022 19:30-0400 Heart rate 99 /min MICHI VASSAS DO [facility] 01-17-2022 19:30-0400 Mean blood pressure 79 mm[Hg] MICHI VASSAS DO [facility] 01-17-2022 19:30-0400 Respiratory rate 16 /min MICHI VASSAS DO [facility] 01-17-2022 19:30-0400 Systolic blood pressure 118 mm[Hg] MICHI VASSAS DO [facility] 01-17-2022 17:06-0400 Body height 177.8 cm MICHI VASSAS DO [facility] 01-17-2022 17:06-0400 Body weight 110 kg MICHI VASSAS DO [facility] 01-17-2022 17:06-0400 Body weight 34.8 kg/m2 MICHI VASSAS DO [facility] 01-17-2022 14:42-0400 Body height 177.8 cm MICHI VASSAS DO [facility] 01-17-2022 14:42-0400 Body weight 110 kg MICHI VASSAS DO [facility] 01-17-2022 14:42-0400 Body weight 34.8 kg/m2 MICHI VASSAS DO [facility] 12-06-2021 15:54-0400 Body height 177.8 cm GATITO KITKO DO [facility] 12-06-2021 15:54-0400 Body weight 114 kg GATITO ILENE DO [facility] 12-06-2021 15:54-0400 Body weight 36.06 kg/m2 GATITO ODOM [facility] 08-07-2021 16:36-0500 Body temperature 98.06 [degF] NANDA TOLEDO DO [facility] 08-07-2021 16:36-0500 Diastolic blood pressure 87 mm[Hg] NANDA TOLEDO DO [facility] 08-07-2021 16:36-0500 Heart rate 95 /min NANDA TOLEDO DO [facility] 08-07-2021 16:36-0500 Respiratory rate 16 /min NANDA TOLEDO DO [facility] 08-07-2021 16:36-0500 Systolic blood pressure 129 mm[Hg] NANDA TOLEDO DO [facility] 05-18-2021 12:24-0400 Body temperature 98.24 [degF] DR JOSÉ MIGUEL MAGALLANES MD [facility] 05-18-2021 12:24-0400 Diastolic blood pressure 64 mm[Hg] DR JOSÉ MIGUEL MAGALLANES MD [facility] 05-18-2021 12:24-0400 Heart rate 78 /min DR JOSÉ MIGUEL MAGALLANES MD [facility] 05-18-2021 12:24-0400 Respiratory rate 18 /min DR JOSÉ MIGUEL MAGALLANES MD [facility] 05-18-2021 12:24-0400 Systolic blood pressure 103 mm[Hg] DR JOSÉ MIGUEL MAGALLANES MD [facility] 03-15-2021 22:43-0400 Diastolic blood pressure 77 mm[Hg] [facility] Work Phone: 03-15-2021 22:43-0400 Heart rate 97 /min [facility] Work Phone: 03-15-2021 22:43-0400 Respiratory rate 16 /min [facility] Work Phone: 03-15-2021 22:43-0400 SaO2% (BldA) [Mass fraction] 99 % [facility] Work Phone: 03-15-2021 22:43-0400 Systolic blood pressure [...] 99 /min Isreal Kincaid MD Work Phone: [facility] Work Phone: 03-07-2021 02:39-0400 Respiratory rate 16 [...] 98.4 [degF] Isreal Kincaid MD Work Phone: [facility] Work Phone: Encounters Encounter Date Encounter Type Care Provider Facility Start: 05-14-2025 End: 05-14-2025 ambulatory ARLINE COARDO SOFTWARE WRITER-SAS ETL DEVELOPER Facility:[facility] Start: 05-14-2025 End: 05-14-2025 SAME DAY STAY CASEY MOULTON MD [facility] Start: 05-11-2025 ambulatory ARLINE GOODWIN SOFTWARE WRITER-SAS ETL DEVELOPER Facility:[facility] Start: 05-10-2025 End: 05-10-2025 Emergency department patient visit Nelson Ulloa Facility:[facility] Start: 05-06-2025 End: 05-06-2025 Emergency department patient visit No Primary Care Physician -Emergency Department Work Phone: Start: 05-03-2025 End: 05-03-2025 Emergency department patient visit No Primary Care Physician -Emergency Department Work Phone: Start: 04-17-2025 End: 04-17-2025 ambulatory ARLINE CORADO SOFTWARE WRITER-SAS ETL DEVELOPER Facility:[facility] Start: 04-17-2025 End: 04-17-2025 Patient encounter procedure ARLINE CORADO SOFTWARE WRITER-SAS ETL DEVELOPER [facility] Start: 03-22-2025 End: 03-23-2025 Emergency department patient visit No Primary Care Physician -Emergency Department Work Phone: Start: 03-22-2025 End: 03-22-2025 Emergency department patient visit PAMELA MEZA MD Facility:[facility] Start: 03-10-2025 End: 03-10-2025 ambulatory ARLINE CORADO SOFTWARE WRITER-SAS ETL DEVELOPER Facility:[facility] Start: 03-09-2025 End: 03-10-2025 Emergency department patient visit HANNAHChristine CORADO Facility:[id number] Start: 02-18-2025 End: 02-18-2025 Emergency department patient visit DR MARIANNA BOYKIN MD [facility] Start: 02-18-2025 End: 02-18-2025 Emergency department patient visit DR MARIANNA BOYKIN MD Facility:[facility] Start: 02-05-2025 End: 02-05-2025 Emergency department patient visit No Primary Care Physician -Emergency Department Work Phone: Start: 01-11-2025 End: 01-12-2025 Emergency department patient visit No Primary Care Physician -Emergency Department Work Phone: Start: 09-30-2024 End: 09-30-2024 Emergency department patient visit MARLENA LOWERY DO [facility] Start: 09-03-2024 ambulatory ARLINE SOTO BUDDY SOFTWARE WRITER-SAS ETL DEVELOPER Facility:[facility] Start: 08-22-2024 End: 08-22-2024 ambulatory ARLINE CORADO SOFTWARE WRITER-SAS ETL DEVELOPER Facility:[facility] Start: 08-11-2024 Emergency department patient visit ARLINE CORADO Facility:[id number] Start: 08-08-2024 End: 08-08-2024 Emergency department patient visit Nelson [place] Facility:[facility] Start: 07-17-2024 End: 07-17-2024 Emergency department patient visit Oseas Aviles Facility:[facility] Start: 07-12-2024 End: 07-12-2024 Emergency department patient visit No Primary Care Physician Facility:[facility] Start: 06-16-2024 End: 06-16-2024 Emergency department patient visit [facility] Facility:[facility] Start: 05-06-2024 End: 05-06-2024 Patient encounter procedure Leela Currie MD Work Phone: OB/Gynecology Comment on above: Incomplete (Primary Dx); Threatened miscarriage Start: 05-06-2024 End: 05-06-2024 ambulatory SUSHIL VILLANUEVA Facility:[facility] Start: 05-05-2024 End: 05-05-2024 Emergency department patient visit ARLINE M MICKIE SOFTWARE WRITER-SAS ETL DEVELOPER Facility:[facility] Start: 05-02-2024 End: 05-07-2024 Telephone encounter Jose Aranda APRN.CNM Work Phone: OB/Gynecology Comment on above: Results Start: 05-01-2024 End: 05-01-2024 ambulatory SUSHIL VILLANUEVA OB/Gynecology Start: 05-01-2024 End: 05-01-2024 Patient encounter procedure Jose Aranda APRN.CNErick Work Phone: OB/Gynecology Comment on above: Positive t est (Primary Dx); Threatened miscarriage; with uncertain dates in first trimester; Spotting affecting in first trimester Start: 04-28-2024 End: 04-28-2024 ambulatory SUSHIL VILLANUEVA Facility:[facility] Start: 04-28-2024 End: 04-28-2024 Patient encounter procedure Sushil Villanueva SOFTWARE WRITER.SAS ETL DEVELOPER Work Phone: OB/Gynecology Comment on above: with uncer tain viability, single or unspecified fetus (Primary Dx); with uncertain dates in first trimester Start: 03-15-2024 End: 03-19-2024 ambulatory HIRA LANGLEY MD Facility:[facility] Start: 03-15-2024 End: 03-15-2024 ambulatory HIRA LANGLEY MD Facility:[facility] Start: 02-19-2024 End: 02-19-2024 ambulatory ARLINE CORADO SOFTWARE WRITER-SAS ETL DEVELOPER Facility:[facility] Start: 02-19-2024 End: 02-19-2024 Patient encounter procedure ARLINE Erick CORADO SOFTWARE WRITER-SAS ETL DEVELOPER [facility] Start: 02-05-2024 End: 02-09-2024 ambulatory ABDI LONDON SOFTWARE WRITER-SAS ETL DEVELOPER Facility:[facility] Start: 01-29-2024 End: 01-29-[address] JOSÉ MIGUEL MAGALLANES MD Facility:[facility] Start: 01-15-2024 End: 01-15-2024 ambulatory MARCELO ISBELL DO Facility:[facility] Start: 01-01-2024 End: 01-05-2024 ambulatory ERLINDA WILLINGHAM PA-C Facility:[facility] Start: 01-01-2024 End: 01-01-2024 ambulatory ERLINDA PULIDO-Johanna Facility:[facility] Start: 12-09-2023 Emergency department patient visit Facility:[facility] Start: 12-09-2023 Admission to [facility] Gila Roth MD Work Phone: Neurosurgery Comment on above: Numbness (Primary Dx ) Start: 12-09-2023 Telemedicine consultation with patient Gila Roth MD Work Phone: Neurosurgery Start: 12-04-2023 End: 12-04-[address] JOSÉ MIGUEL MAGALLANES MD Facility:[facility] Start: 12-04-2023 End: 12-08-[address] JOSÉ MIGUEL MAGALLANES MD Facility:[facility] Start: 11-19-2023 End: 11-19-2023 ambulatory ABDI LONDON SOFTWARE WRITER-SAS ETL DEVELOPER Facility:A Start: 11-05-2023 End: 11-05-[address] JOSÉ MIGUEL MAGALLANES MD Facility:[facility] Start: 10-14-2023 End: 10-15-2023 Emergency department patient visit Jig Boring Machine [employer] [facility] Start: 08-29-2023 End: 08-29-2023 ambulatory ERLINDA WILLINGHAM PA-C Facility:[facility] Start: 08-11-2023 End: 08-11-2023 Emergency department patient visit Jig Boring Machine Operator [employer] [facility] Start: 05-12-2023 End: 05-12-2023 Emergency department patient visit Jig Boring Machine Operator [employer] [facility] Start: 02-13-2023 End: 02-13-2023 Emergency department patient visit Jig Boring Machine Operator [employer] [facility] Start: 09-26-2022 End: 09-27-2022 Emergency department patient visit MARCELO ROBLES [facility] Start: 09-26-2022 End: 09-26-2022 Emergency department patient visit Marcelo Robles MD Work Phone: [facility] Comment on above: Hypertension, unspec ified type (Primary Dx) Start: 09-25-2022 End: 09-25-2022 Emergency department patient visit Alvin Pryor [facility] Start: 03-05-2022 End: 03-08-2022 Evaluation and management of inpatient JOSSIE HAYES MD [facility] Start: 01-17-2022 End: 01-18-2022 Observation MICHI LEONARD DO [facility] Start: 12-26-2021 End: 12-26-2021 Subsequent hospital visit by physician ANNA GARCÍA Comment on above: RT LOWER LEG PAIN/TR IAGE Start: 12-06-2021 End: 12-06-2021 Patient encounter procedure GATITO ODOM DO [facility] Start: 11-29-2021 End: 11-29-2021 ambulatory NONE NONE Facility:[facility] Start: 08-07-2021 End: 08-07-2021 Emergency department patient visit NANDAMITCHELL TOLEDO DO [facility] Start: 05-18-2021 End: 05-18-2021 Emergency department patient visit DR JOSÉ MIGUEL MAGALLANES MD [facility] Start: 03-15-2021 End: 03-15-2021 Emergency department patient visit [facility] Emergency Dept Comment on above: Cough (Primary Dx); Vaginal discharge Start: 03-07-2021 End: 03-07-2021 Emergency department patient visit Isreal Kincaid MD Work Phone: [facility] Emergency Dept Comment on above: Ecstasy abuse [...] pelvic nonobstetr ic real-time image complete Sushil Rich BROWERSAS ETL DEVELOPER Work Phone: Start: 04-28-2024 Antibody screen SUSHIL STATON Comment on above: Order Comment: Speci men Type: BLOOD SPECIMEN Ordering Facility: [facility] Address: [address] [place] [address] Performed By: #### T SPN #### [facility] CLIA [id number] [address] [place] [address] [place] [address] [place] Start: 04-28-2024 Us uterus l imited fetuses Sushil Rich BROWERSAS ETL DEVELOPER Work Phone: Start: 10-14-2023 Microscopic urinalysis [employer] Start: 08-11-2023 Lumbar puncture usin g fluoroscopic guidance J[employer] Start: 08-11-2023 Microscopic urinalysis Jig [employer] Start: 05-12-2023 CT of head without contrast Jig [employer] Start: 05-12-2023 Lumbar puncture usin g fluoroscopic guidance J[employer] Start: 05-12-2023 Microscopic urinalysis Jig [employer] Start: 02-13-2023 Plain chest X-ray On Ca ll Start: 02-13-2023 Ultrasonography of deep vein [employer] Start: 09-26-2022 Ct thorax w/contrast material Serena Kelly DO Work Phone: Start: 09-26-2022 End: 09-26-2022 Basic metabolic panel calcium total Serena Kelly DO Work Phone: Start: 09-25-2022 Plain chest X-ray Tod F ilmer Start: 09-25-2022 US scan venography o f upper limbs Tod Filmer Start: 03-15-2021 Radiologic exam ches t single view Carlitos English SOFTWARE WRITER - SAS ETL DEVELOPER Work Phone: Start: 03-07-2021 Urnls dip stick/tabl et rgnt auto w/o microscopy Sherin Dawkins SOFTWARE WRITER - SAS ETL DEVELOPER Work Phone: Start: 03-07-2021 Basic metabolic pane l calcium total Sherin Dawkins SOFTWARE WRITER - SAS ETL DEVELOPER Work Phone: Start: 03-07-2021 Ecg routine ecg w/le ast 12 lds w/i&r Isreal Kincaid MD Work Phone: Start: 01-06-2019 Antibody screen Comment on above: Performed By: #### T &S #### [place] [id number] None (qualifier value) DR CARROLL MAGALLANES MD Plan of Treatment Date Care Activity Detail Author Start: 2070 RSV Vaccine (1 - 1-d ose 75+ series) RSV Vaccine (1 - 1-dose 75+ series) [facility] Start: 06-18-2029 Urine microalbumin profile DTaP,Tdap,Td Vaccine (9 - Td or Tdap) [facility] Start: 05-10-2025 [facility] Start: 05-06-2025 [facility] Start: 05-03-2025 End: 05-03-2025 [facility] Start: 03-23-2025 [facility] Start: 02-05-2025 [facility] Start: 02-05-2025 CT of head without contrast Brain/Head without Contrast [facility] Start: 02-05-2025 CT Unspecified body region WO contrast [facility] Start: 01-12-2025 [facility] Start: 05-29-2024 DTaP/Tdap/Td vaccine (2 - Td or Tdap) DTaP/Tdap/Td vaccine (2 - Td or Tdap) [facility] Start: 05-26-2024 End: 05-26-2024 Patient encounter procedure 05/26/2024 1:10 PM EDT Routine Office Visit OB/Gynecology [address] [place] [id number] Cheryl Ricardo MD [address] [place] [address] NEw OB LMP 02/19 ?? OB/Gynecology Comment on above: NEw OB LMP 02/19 ?? Start: 05-14-2024 End: 05-14-2024 Patient encounter procedure 05/14/2024 1:30 PM EDT Office Visit OB/Gynecology [address] [place] [address] Leela Currie MD [address] [place] [address] IPAS f/u OB/Gynecology Comment on above: IPAS f/u Start: 05-06-2024 End: 05-06-2024 Patient encounter procedure 05/06/2024 2:30 PM EDT Routine Office Visit OB/Gynecology [address] [place] [address] Leela Currie MD [address] [place] [address] OB Routine OB/Gynecology Comment on above: OB Routine Start: 05-06-2024 End: 08-05-2024 CBC panel - Blood by Automated count COMPLETE BLOOD COUNT Lab Routine Threatened miscarriage Expected: 05/06/2024, Expires: 08/05/2024 [facility] Work Phone: Comment on above: Expected: 05/06/2024 , Expires: 08/05/2024 Start: 05-01-2024 End: 05-01-2024 Patient encounter procedure 05/01/2024 1:30 PM EDT Office Visit OB/Gynecology [address] [place] [address] Jose Aranda APRN.CN [address] [place] [address] US follow up OB/Gynecology Comment on above: US follow up Start: 05-01-2024 End: 05-01-2024 ambulatory 05/01/2024 1:00 PM EDT Procedure OB/Gynecology [address] [place] [address] with uncertain dates in first trimester [Z34.91] OB/Gynecology Comment on above: with uncer tain dates in first trimester [Z34.91] Start: 04-28-2024 End: 07-28-2024 Hemoglobin A1c in Blood [facility] Comment on above: Expected: 04/28/2024 , Expires: 07/28/2024 Start: 04-28-2024 End: 07-28-2024 TYPE + SCREEN [facility] Comment on above: Expected: 04/28/2024 , Expires: 07/28/2024 Start: 04-28-2024 End: 04-28-2025 US Pelvis PELVIC US [facility] Anc Imaging Routine with uncertain dates in first trimester Expected: 04/28/2024, Expires: 04/28/2025 [facility] Comment on above: Expected: 04/28/2024 , Expires: 04/28/2025 Start: 03-30-2024 Covid-19 Vaccine ( season) Covid-19 Vaccine ( season) [facility] Start: 03-30-2024 Influenza vaccination C [facility] Start: 07-30-2023 Behavioral Health Screening Behavioral Health Screening [facility] Start: 05-12-2023 Bacteria identified in Urine by Culture Urine Culture [facility] Start: 03-30-2023 Covid-19 Vaccine ( season) Covid-19 Vaccine ( season) [facility] Start: 03-30-2022 Influenza vaccination INFLUENZ A (Season Ended) [facility] Start: 02-27-2022 Influenza vaccination Flu vaccine (# 1) [facility] Start: 01-06-2022 PAP TESTING PAP TESTING [facility] Start: 01-06-2022 Screening for malign ant neoplasm of cervix [facility] Start: 03-30-2021 Influenza vaccination Flu vaccine (# 1) [facility] Work Phone: Start: 2016 Screening for malign ant neoplasm of cervix Pap smear [facility] Start: 2014 Urine microalbumin profile DTAP,TDAP,TD (1 - Tdap) [facility] Start: 2013 Anxiety Screening Anxiety Screening [facility] Start: 2013 Depression Screening Depression Scre ening [facility] Start: 2013 Hepatitis C screening Hepatitis C sc reen [facility] Start: 11-11-2012 HPV Vaccine (2 - 3-d ose series) HPV Vaccine (2 - 3-dose series) [facility] Start: 2010 HIV screening HIV screen [facility] Start: 2009 PEDS TO ADULT TRANSITION ANNUAL ASSESSMENT PEDS TO ADULT TRANSITION ANNUAL ASSESSMENT [facility] Start: 2007 Adult depression screening assessment DEPRESSION SCREENING [facility] Start: 2007 COVID-19 Vaccine (1) COVID-19 Vaccin e (1) [facility] Work Phone: Start: 2007 Depression Screen Depression Screen [facility] Start: 2007 PEDS TO ADULT TRANSITION INITIAL DISCUSSION PEDS TO ADULT TRANSITION INITIAL DISCUSSION [facility] Start: 2006 HPV VACCINE (1 - 2-d ose series) HPV VACCINE (1 - 2-dose series) [facility] Start: 2001 PNEUMOCOCCAL (1 - PCV) PNEUMOCOCCAL (1 - PCV) [facility] Start: 2000 COVID-19 VACCINE (#1) COVID-19 VACCI NE (#1) [facility] Start: 1996 Varicella vaccine (1 of 2 - 2-dose childhood series) Varicella vaccine (1 of 2 - 2-dose childhood series) [facility] Start: 1995 COVID-19 Vaccine (#1) COVID-19 Vacci ne (#1) [facility] Bacteria identified in Urine by Culture URINE CULTURE Microbiology Routine with uncertain dates in first trimester 04/28/2024 12:14 PM EDT [facility] End: 03-15-2021 C. Trachomatis / N. Gonorrhoeae, [...] for 8 Occurrences starting 04/28/2024 until 04/28/2025 [facility] Work Phone: Comment on above: 2x per week for 8 Oc currences starting 04/28/2024 until 04/28/2025 Choriogonadotropin.b eta subunit [Units/volume] in Serum or Plasma HCG QUANTITATIVE Lab Routine with uncertain dates in first trimester 04/28/2024 12:12 PM EDT [facility] EKG 12 Lead EKG 12 Lead ECG STAT 03/07/2021 12:24 AM EDT [facility] Work Phone: Patient Education [facility] Patient referral [facility] Work Phone: End: 03-15-2021 Respiratory Panel, [...] Threatened miscarriage 05/06/2024 4:56 PM EDT [facility] Immunizations Immunization Date Immunization Notes Care Provider Jaya hernandez 06-18-2019 tetanus toxoid, redu jose diphtheria toxoid, and acellular pertussis vaccine, adsorbed ARLINE MICKIE SOFTWARE WRITER-SAS ETL DEVELOPER [facility] 02-18-2019 hepatitis A vaccine, adult dosage ARLINE MICKIE SOFTWARE WRITER-SAS ETL DEVELOPER [facility] 05-31-2014 pneumococcal polysaccharide vaccine, [address] JOSÉ MIGUEL MAGALLANES MD [facility] 05-29-2014 tetanus toxoid, redu jose diphtheria toxoid, and acellular pertussis vaccine, adsorbed DR JOSÉ MIGUEL MAGALLANES MD [facility] 10-14-2012 hepatitis A vaccine, pediatric dosage, unspecified formulation ARLINE MICKIE SOFTWARE WRITER-SAS ETL DEVELOPER [facility] 10-14-2012 Human Papillomavirus Quadval ARLINE MICKIE SOFTWARE WRITER-SAS ETL DEVELOPER [facility] 10-14-2012 meningococcal polysaccharide (groups A, C, Y and W-135) diphtheria toxoid conjugate vaccine (MCV4P) ARLINE MICKIE SOFTWARE WRITER-SAS ETL DEVELOPER [facility] 10-14-2012 tetanus toxoid, redu jose diphtheria toxoid, and acellular pertussis vaccine, adsorbed ARLINE MICKIE SOFTWARE WRITER-SAS ETL DEVELOPER [facility] 03-21-2000 measles/mumps/rubell a virus vaccine ARLINE MICKIE SOFTWARE WRITER-SAS ETL DEVELOPER [facility] 03-21-2000 poliovirus vaccine, inactivated ARLINE MICKIE SOFTWARE WRITER-SAS ETL DEVELOPER [facility] 04-06-1998 hepatitis B pediatri c vaccine ARLINE MICKIE SOFTWARE WRITER-SAS ETL DEVELOPER [facility] 01-28-1997 measles/mumps/rubell a virus vaccine ARLINE MICKIE SOFTWARE WRITER-SAS ETL DEVELOPER [facility] 01-28-1997 poliovirus vaccine, inactivated ARLINE MICKIE SOFTWARE WRITER-SAS ETL DEVELOPER [facility] 1995 hepatitis B pediatri c vaccine ARLINE MICKIE SOFTWARE WRITER-SAS ETL DEVELOPER [facility] 1995 hepatitis B pediatri c vaccine ARLINE MICKIE SOFTWARE WRITER-SAS ETL DEVELOPER [facility] 1995 poliovirus vaccine, inactivated ARLINE MICKIE SOFTWARE WRITER-SAS ETL DEVELOPER [facility] 1995 poliovirus vaccine, inactivated ARLINE MICKIE SOFTWARE WRITER-SAS ETL DEVELOPER [facility] 1995 hepatitis B pediatri c vaccine ARLINE MICKIE SOFTWARE WRITER-SAS ETL DEVELOPER [facility] 1995 hepatitis B pediatri c vaccine ARLINE MICKIE SOFTWARE WRITER-SAS ETL DEVELOPER [facility] Payers Date Payer Category Payer Private Health Insurance [id number] 2023 Medicaid [id number] 2023 Private Health Insurance [id number] 2020 [place] Health [place] [facility] [place] [place] [id number] 2020-Present [phone] [address] [place] [address] [id number]. [id number] 2018 Medicaid [facility] MEDICAID [facility] COMM[employer] MEDICAID [id number] 2018-Present [phone] [address] [place] [address] Medicaid [id number]. [id number] 1995 Unknown [id number] 2.16840.1.159486.3.579.2. 419 1995 Unknown [id number] 2.16840.1.746656.3.579.2. 627 1995 Unknown [id number] 2.840.1.268680.3.579.2. 62 1995 Unknown [id number] 2.840.1.029196.3.579.2. 62 1995 Unknown [id number] 2.840.1.037443.3.579.2. 62 1995 Unknown [id number] 2.840.1.301342.3.579.2. 62 1995 Unknown [id number] 2.840.1.491478.3.579.2. 627 1995 Unknown [id number] 2.840.1.515986.3.579.2. 62 1995 Unknown [id number] 2.840.1.277544.3.579.2. 62 1995 Unknown [id number] 2.16840.1.386855.3.579.2. 62 1995 Unknown [id number] 2.840.1.538787.3.579.2. 1995 Unknown [id number] 2.840.1.690277.3.579.2. 627 1995 Unknown [id number] 2.840.1.761192.3.579.2. 627 1995 Unknown [id number] 2.840.1.853032.3.579.2. 1995 Unknown [id number] 2.16840.1.687291.3.579.2. 1995 Unknown [id number] 2.840.1.027274.3.579.2. 1995 Unknown [id number] 2.840.1.427391.3.579.2. 1995 Unknown [id number] 2.840.1.261419.3.579.2. 1995 Unknown [id number] 2.840.1.108822.3.579.2. 1995 Unknown [id number] 2.840.1.245187.3.579.2. 1995 Unknown [id number] 2.840.1.194479.3.579.2. 1995 Unknown [id number] .840.1.760602.3.579.2. 1995 Unknown [id number] .840.1.327386.3.579.2. 1995 Unknown [id number] .840.1.321867.3.579.2. 1995 Unknown [id number] .840.1.892860.3.579.2. 1995 Unknown [id number] .840.1.705488.3.579.2. 627 1959 Self-pay Unknown [id number] 2.840.1.291349.3.579.2. 630 Unknown [id number] 2.840.1.539729.3.579.2. 630 Unknown [id number] 2.840.1.003702.3.579.2. 630 Unknown [id number] 2.16.840.1.329977.3.579.2. 630 Unknown [id number] 2.16.840.1.483559.3.579.2. 462 Unknown [id number] 2.16.840.1.435771.3.579.2. 462 Unknown [id number] 2.16.840.1.477697.3.579.2. 462 Unknown [id number] 2.16.840.1.161310.3.579.2. 462 Unknown [id number] 2.16.840.1.819228.3.579.2. 462 Unknown [id number] 2.16.840.1.601348.3.579.2. 462 Unknown [id number] 2.16.840.1.474524.3.579.2. 462 Unknown [id number] 2.16.840.1.043369.3.579.2. 462 Unknown [id number] 2.16.840.1.715062.3.579.2. 462 Unknown [id number] 2.16.840.1.965709.3.579.2. 462 Social History Date Type Detail Facility Start: 02-19-2018 End: 09-10-2018 Tobacco smoking status [facility] Never smoker [facility] Start: 09-10-2018 End: 06-24-2023 Tobacco use and exposure Never used [facility] Start: 09-10-2018 End: 05-01-2024 Alcohol intake Current drinker of alcohol (finding) [facility] Work Phone: Start: 1995 Sex Assigned At Not on file S [facility] Work Phone: Start: 09-16-2022 End: 09-26-2022 Exposure to SARS-CoV-2 (event) Not sure [facility] Start: 05-19-2020 End: 08-22-2024 Light tobacco smoker (finding) [facility] Sex Assigned At [facility] Start: 12-19-2018 End: 05-10-2025 Tobacco smoking status NHIS Smokes tobacco daily [facility] Start: 10-22-2019 Alcohol intake Ex-drinker (finding) [facility] Start: 01-17-2022 End: 01-11-2025 Tobacco smoking status Ex-smoker (finding) [facility] History of tobacco use Current smoker [facility] History of tobacco use Cigarette Smoker [facility] Start: 06-24-2023 End: 04-28-2024 History of Social function [facility] Start: 06-24-2023 End: 04-28-2024 Tobacco use panel [facility] Start: 05-14-2025 National Score (1-10 0), lower number is lower risk 75 [facility] Start: 06-08-2023 Alcohol Comment socially [facility] Has the [employer], or [email or web address] threatened to shut off services in your home in past 12Mo No [facility] (I/We) worried cailin er (my/our) food would run out before (I/we) got money to buy more. Never true [facility] Start: 12-20-2013 Sex Female (finding) [facility] Start: 1995 Sex Assigned At Female [facility] Start: 05-06-2025 Tobacco smoking stat us KYIS Current some day smoker [facility] Sexual Sexually active: Yes. [facility] Medical Equipment Procedure Code Equipment Code Equipment Origin al Text Equipment Identifier Dates TEST BLOOD SUGAR EVERY DAY Start: 2024 See Instructions , check BS daily, # 100 EA, 5 Refill(s), Pharmacy: [email or web address] #[id number], Type 2 diabetes mellitus, 178, cm, 03/15/24 14:17:00 EDT, Height, 104.8, kg, 03/15/24 14:17:00 EDT, Dosing Weight Start: 04-18-2024 See Instructions , BD VENANCIO 2 GEN PEN NDL [id number], # 100 EA, 5 Refill(s), Pharmacy: [facility] #[id number], 178, cm, 03/15/24 14:17:00 EDT, Height, 97, kg, 05/05/24 17:35:00 EDT, Dosing Weight Start: 05-12-2024 See Instructions , test BS daily, # 100 EA, 5 Refill(s), Pharmacy: [facility] #[id number], 177.8, cm, 02/19/24 15:03:00 EDT, Height, 93, kg, 02/05/24 15:51:00 EDT, Dosing Weight Start: 03-05-2024 See Instructions , check BS daily, # 100 EA, 5 Refill(s), Pharmacy: [facility] #[id number], Type 2 diabetes mellitus, 178, cm, 03/15/24 14:17:00 EDT, Height, 104.8, kg, 03/15/24 14:17:00 EDT, Dosing Weight Start: 04-18-2024 See Instructions , BD VENANCIO 2 GEN PEN NDL [id number], # 100 EA, 5 Refill(s), Pharmacy: [facility] #[id number], 178, cm, 03/15/24 14:17:00 EDT, Height, 97, kg, 05/05/24 17:35:00 EDT, Dosing Weight Start: 05-12-2024 See Instructions , test BS daily, # 100 EA, 5 Refill(s), Pharmacy: [facility] #[id number], 177.8, cm, 02/19/24 15:03:00 EDT, Height, 93, kg, 02/05/24 15:51:00 EDT, Dosing Weight Start: 03-05-2024 See Instructions , check BS daily, # 100 EA, 5 Refill(s), Pharmacy: [facility] #[id number], Type 2 diabetes mellitus, 178, cm, 03/15/24 14:17:00 EDT, Height, 104.8, kg, 03/15/24 14:17:00 EDT, Dosing Weight Start: 04-18-2024 See Instructions , BD VENANCIO 2 GEN PEN NDL [id number], # 100 EA, 5 Refill(s), Pharmacy: [facility] #[id number], 178, cm, 03/15/24 14:17:00 EDT, Height, 97, kg, 05/05/24 17:35:00 EDT, Dosing Weight Start: 05-12-2024 See Instructions , test BS daily, # 100 EA, 5 Refill(s), Pharmacy: [facility] #[id number], 177.8, cm, 02/19/24 15:03:00 EDT, Height, 93, kg, 02/05/24 15:51:00 EDT, Dosing Weight Start: 03-05-2024 See Instructions , check BS daily, # 100 EA, 5 Refill(s), Pharmacy: [facility] #[id number], Type 2 diabetes mellitus, 178, cm, 03/15/24 14:17:00 EDT, Height, 104.8, kg, 03/15/24 14:17:00 EDT, Dosing Weight Start: 04-18-2024 See Instructions , BD VENANCIO 2 GEN PEN NDL [id number], # 100 EA, 5 Refill(s), Pharmacy: [facility] #[id number], 178, cm, 03/15/24 14:17:00 EDT, Height, 97, kg, 05/05/24 17:35:00 EDT, Dosing Weight Start: 05-12-2024 See Instructions , test BS daily, # 100 EA, 5 Refill(s), Pharmacy: [facility] #[id number], 177.8, cm, 02/19/24 15:03:00 EDT, Height, 93, kg, 02/05/24 15:51:00 EDT, Dosing Weight Start: 03-05-2024 Functional Status Date Assessment Result Facility 05-14-2025 Functional Status Awake [facility] 05-14-2025 Functional Status Maintained [facility] 09-30-2024 Functional Status Independent [facility] 09-30-2024 Functional Status ID band on, Allergy Band on, Call device within reach, Bed in low position, Wheels locked, Upper/Half-Length side-rails up, Visitor at bedside, Safety level maintained [facility] 03-08-2022 Functional Status Sitting in bed , Remains in NICU [facility] 03-08-2022 Functional Status [facility] 03-08-2022 Functional Status [facility] 2022 Functional Status [facility] 03-05-2022 Functional Status [facility] 03-05-2022 Functional Status [facility] 01-18-2022 Functional Status Ambulation in Room [facility] 01-17-2022 Functional Status Home independently [facility] 01-17-2022 Functional Status Rooming in [facility] 01-17-2022 Functional Status [facility] Mental Status Date Assessment Result Facility 05-14-2025 Mental Status Orientation Oriented x 4 [facility] 05-14-2025 Mental Status [facility] 05-14-2025 Mental Status [facility] 05-10-2025 Cognitive function Level Of Consciousness Awake [facility] Work Phone: 03-22-2025 Cognitive function Level Of Cons ciousness Awake;Alert;Appropriate;Follow s Commands [facility] Work Phone: 01-11-2025 Cognitive function Voice/Name [facility] Work Phone: 09-30-2024 Mental Status Orientation Oriented x 4 [facility] 09-30-2024 Mental Status [facility] Clinical Notes 03-07-2021 to 05-14-2025 Note [...] what activities are safe for you. Take gdjv-cvh-hehbwqm and prescription medicines only as told by [...] 10/22/2001 Document Revised: 07/19/2018 Document Reviewed: 03/01/2018 [employer] Patient Education 2020 [employer]. 05/14/2025 11:44:58 Dilation and Curettage or Vacuum [...] tampons. ?Have sexual intercourse. General instructions Take ebjs-knh-zdirgxr and prescription medicines only as told by [...] 07/13/2001 Document Revised: 06/28/2018 Document Reviewed: 02/15/2017 [employer] Patient Education 2020 [employer]. 05/14/2025 11:44:48 Managing Loss Managing Loss loss [...] picture taken. Make arrangements. Ask for a latter day or blessing. Hospitals have staff members who [...] yourself. Follow these instructions at home: Take yzck-sol-elnwgae and prescription medicines only as told by [...] Human Services Office on Women's Health: www.womenshealth.gov [place] [employer]: www.americanpregnancy.org Contact a health care provider [...] 09/26/2018 Document Revised: 11/05/2019 Document Reviewed: 09/26/2018 ElseConnectionPlus Patient Education 2020 [employer] Follow Up Care 05/11/2025 14:52:40 With:CASEY MOULTON MD Address: [address] [place] [address] [place] [phone] When: Unknown Comments:Call to schedule followup postsurgery appointment with me next [facility] 05-14-2025 Evaluation + Plan note Extrac alexandro from: Title:Clinical Document Author:SAIGE ALONZO, CASEY King Date:05/14/25 [place] ADMISSION HISTORY AN D PHYSICIAL CHIEF COMPLAINT: Missed AB HISTORY OF PRESENT ILLNESS: Patient is a 30-year-old 7 para 6 at approximately 7 weeks estimated gestational age who presented to the emergency room at [facility] a little over a week ago with complaints of bleeding. At that time had an IUP and has had continued bleeding since. hCGs have fallen and were rechecked twice this week and again were considerably lower than when she was at the emergency room at [facility]. She continues to have passage of clots and some cramping. Ultrasound that was performed by me definitely showed a failed . REVIEW OF SYSTEMS: Heavy vaginal bleeding with cramping and passage of clots. No urinary or bowel complaints. Review of systems otherwise unremarkable. ACTIVE PROBLEMS: (19) ADD (attention deficit disorder) ([id number]) Anemia (742749941) Breast pain, left (0980808613) Ganglion cyst (0302631430) Gestational diabetes (58456730) Gestational diabetes (30627732) Gestational diabetes mellitus, class A>1< (031259196) Hypokalemia (72077077) Iron deficiency anemia (078860087) Left hip pain (71695005) Missed (0757791090) Prediabetes (3697595245) (563365041) Tobacco use (6056891000) Type 2 diabetes mellitus (479823960) Urinary tract infection (500529034) Vaginal yeast infection (896631363) Viral pharyngitis (2768532) Wrist pain (2685305272) MEDICATIONS: Active Inpt Meds: cefOXitin (Mefoxin) Start: [...] RBC3.77L Hgb11.2L Hct32.9L MCV87.2 MCH29.6 MCHC33.9 RDW16.0H Bqllqxfy790 MPV8.9 Neutrophil %58.8 Lymphocyte %31.6 Monocyte %6.2 [...] 04/23/25 Radiology* US Breast Left Complete 09/15/24 [facility] 10-16-2025 Note Discharge Instructions Thank you for allowing [facility] to assist you with your healthcare needs. The following is importantdischarge information regarding your hospital visit. Your Care Team ARLINE CORADO APRN-SAS ETL DEVELOPER DR. MOULTON Your Diagnosis Missed Missed ab Post-op pain What to do next Follow Up Appointments Follow Up with CASEY MOULTON MD Where:[address] [facility] [address] [facility] [place] [address]- [phone] Additional Information: Call to schedule followup postsurgery [...] Post-op pain Duration: 5 Days Pickup at [facility] New ibuprofen (ibuprofen 600 mg oral tablet) 1 tab(s) by mouth Every 6 hours as needed for for pain Duration: 7 Days Take with food or milk. Pickup at [facility] Unchanged DME (Blood Glucose Test Machine) See instructions Type 2 diabetes mellitus 1 glucometer Unchanged DME (Blood Glucose Test Strips) See instructions Type 2 diabetes mellitus check BS daily Unchanged DME (Dexcom G7 [place]) See instructions Type 2 diabetes mellitus Use [...] instructions BD VENANCIO 2 GEN PEN NDL [id number] Unchanged DME (Lancets) See instructions test BS [...] TABLET BY MOUTH EVERY DAY Pharmacy Information [facility]: [address] [place], [place] [id number] [phone] Please take this list to your next [...] what activities are safe for you. Take okag-ekn-beidbev and prescription medicines only as told by [...] 10/22/2001 Document Revised: 07/19/2018 Document Reviewed: 03/01/2018 [employer] Patient Education 2020 [employer]. Dilation and Curettage or Vacuum Curettage, Care [...] ? Have sexual intercourse. General instructions Take rnue-nsv-rspxgjg and prescription medicines only as told by [...] 07/13/2001 Document Revised: 06/28/2018 Document Reviewed: 02/15/2017 [employer] Patient Education 2020 [employer] Managing Loss loss can happen any [...] picture taken. Make arrangements. Ask for a latter day or blessing. Hospitals have staff members who [...] yourself. Follow these instructions at home: Take buko-pgo-znnjwcd and prescription medicines only as told by [...] Human Services Office on Women's Health: www.womenshealth.gov [place] [employer]: www.americanpregnancy.org Contact a health care provider [...] Document Reviewed: 09/26/2018 Elsevier Patient Education 2020 Else[employer] Inc. Additional Information VACCINATE! IT SAVES LIVES! Members of the community who have not yet received the COVID-19 vaccine and would like to receive it can visit one of [facility] vaccine clinics. There are many vaccine clinic locations within the [facility]. For locations and available times, please visit [email or web address].[place].gov/. It is important to note that some COVID mobile vaccine clinics are held outdoors and may be canceled in rainy or stormy conditions. To learn more about pediatric vaccinations (ages 5-11), we invite you to visit the [facility] webpage. https://www.[facility].org/pages/0560-Xmidu-Wqixmmaldtv-Gfijojgjkc-Grbdx-Zgu stions.htmlTo learn more about the COVID-19 vaccine, we invite you to visit the CDC website for a list of frequently asked questions.https://www.cdc.gov/coronavirus/2019-ncov/vaccines/faq.html [facility] Patient Portal Access Instructions: Stay connected with your healthcare team and access your personal medical information anytime with the [facility] Patient Portal. Please follow the directions below to create your [facility] account: 1.Access the email account you provided upon registration to the hospital/physician office.2.Look for an invitation email from [facility].3.Open the email and access the invitation link: AcceptInvitation to [facility].4.Fill in the required french to create your account. To access your account, visit [employer]. or scan the [facility] code above. Click the blue button labeled "Access Patient Portal" and then log in with the username [...] who you will allowto register on the [facility] Patient Portal for access to your information. You can also access the [facility] Patient Portal on the [facility] lisette. Simply click on "Patient Portal" and then log into your account. If you would like to receive a full copy of your medical records, please contact the [facility] Medical Records Department by calling [phone], Sunday through Sunday between 8 a.m. and [...] Call your local pharmacy or go to [email or web address] to find one close to you.3.Make use of household items: Use cat litter or old coffee grounds to dispose medications if other options arenot available. Mix your drugs with these household products, seal them in an airtight container andthrow it into the garbage. Call [facility]: [phone] to be sure your drugs can be [...] that I should contact my d octor. 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 At that time had an IUP and has had continued bleeding since. hCGs have fallen and were rechecked twice this week and again were considerably lower than when she was at the emergency room at [facility]. She continues to have passage of clots and some cramping. Ultrasound that was performed by me definitely showed a failed . REVIEW OF SYSTEMS: Heavy vaginal bleeding with cramping and passage of clots. No urinary or bowel complaints. Review of systems otherwise unremarkable. ACTIVE PROBLEMS: (19) ADD (attention deficit disorder) ([id number]) Anemia (082584476) Breast pain, left (3080690378) Ganglion cyst (3404115013) Gestational diabetes (20190514) Gestational diabetes (20190514) Gestational diabetes mellitus, class A>1< (571664014) Hypokalemia (55470735) Iron deficiency anemia (126906549) Left hip pain (53644071) Missed (6916398584) Prediabetes (1150829323) (208561660) Tobacco use (8562031219) Type 2 diabetes mellitus (147711613) Urinary tract infection (776373521) Vaginal yeast infection (163803969) Viral pharyngitis (9318856) Wrist pain (8914808536) MEDICATIONS: Active Inpt Meds: cefOXitin (Mefoxin) Start: [...] RBC3.77L Hgb11.2L Hct32.9L MCV87.2 MCH29.6 MCHC33.9 RDW16.0H Bukfmojn132 MPV8.9 Neutrophil %58.8 Lymphocyte %31.6 Monocyte %6.2 [...] CASEY MOULTON MD on 05/14/2025 11:41 AM [facility]10-16-2025 Anesthesiology Consult note Patient: BETSY MESA Age: 30 years Sex: Female : 1995 Associated Diagnoses: None Author: DIONNE FROST SOFTWARE WRITER-MAINTENANCE SERVICE TECHNICIAN Preoperative Information Time of last food or [...] Instructions, BD VENANCIO 2 GEN PEN NDL [id number], 100 EA, 5 Refill(s) Dexcom G7 [place]: See Instructions, Use reader daily for blood [...] ADD (attention deficit disorder) / SNOMED CT [id number] / Confirmed Anemia / SNOMED CT 534633680 / Confirmed Vaginal yeast infection / SNOMED CT 770273360 / Confirmed Ganglion cyst / SNOMED CT 7956817791 / Confirmed Gestational diabetes mellitus, class A>1< / SNOMED CT 139034741 / Confirmed Left hip pain / SNOMED CT 93683319 / Confirmed Hypokalemia / SNOMED CT 93322220 / Confirmed Iron deficiency anemia / SNOMED CT 341022867 / Confirmed Missed / SNOMED CT 9695553334 / Confirmed Breast pain, left / SNOMED CT 9126698024 / Confirmed Wrist pain / SNOMED CT 8866212976 / Confirmed Prediabetes / SNOMED CT 2187089710 / Confirmed / SNOMED CT 837942673 / Confirmed Type 2 diabetes mellitus / SNOMED CT 661403201 / Confirmed Urinary tract infection / SNOMED CT 182321718 / Confirmed Viral pharyngitis / SNOMED CT 3157654 / Confirmed, Active Problems (19) ADD (attention deficit disorder) Anemia Breast pain, left Ganglion cyst Gestational diabetes Gestational diabetes Gestational diabetes mellitus, class A>1< Hypokalemia Iron deficiency anemia Left hip pain Missed Prediabetes Tobacco use Type 2 diabetes mellitus Urinary tract infection Vaginal yeast infection Viral pharyngitis Wrist pain Histories Past Medical History: Active ADD (attention deficit disorder) ([id number]) Resolved ([id number]): Onset on 01/17/2022 at 26 years. Resolved on 03/05/2022 at 26 years. ([id number]): Onset on 10/23/2018 at 23 years. Resolved on 08/04/2019 at 24 years. Comments: 02/27/2017 EDT 15:51 EDT - SYSTEM System added from documentation. Status documented as Yes on Admission ([id number]): Onset on 10/16/2016 at 21 years. Resolved in 2018 at 22 years. Induction of labor ([id number]): Onset on 05/28/2014 at 19 years. Resolved. ([id number]): Onset on 10/20/2013 at 18 years. Resolved in 2014 at 19 years. ([id number]): Onset on 08/16/2013 at 18 years. Resolved on 05/29/2014 at 19 years. ([id number]): Resolved. Comments: 01/01/2022 EDT 0:46 EDT - SYSTEM System added from documentation. Status documented as Yes on Admission Family History: Diabetes mellitus type 1 Sister Diabetes mellitus type 2 Mother Seizure Sister Procedure history: None ([id number]). Social History: Social & Psychosocial Habits Alcohol [...] Surgeon SN - CAt - Role Performed MAINTENANCE SERVICE TECHNICIAN SN - CAt - Role Performed Gravel Screener 1 SN - CAt - Role Performed Scrub 1 SN - CAt - Role Performed Pharmacy Assistant 1 05/13/2025 12:42 EDT hCG, quantitative 1,796.1 mIU/mL NA . Assessment and Plan [place] [employer] Anesthesiologists (ASA) physical status classification: Class III. Anesthetic Preoperative Plan Premedication: intravenous. Anesthetic technique: General. Induction: intravenously. Maintenance airway: Laryngeal mask airway. Postoperative pain management: Per surgeon. Risks discussed: nausea, vomiting, sore throat. Informed consent: signed by patient. Digitally Signed by DIONNE FROST APRN-MAINTENANCE SERVICE TECHNICIAN on 05/14/2025 11:30 AM [facility]10-12-2025 Discharge summary [facility] Medical Records Department [address] [place] [address] Emergency Department Summary 05/10/25 MR#: [id number] Acct: [id number] Name: BETSY MESA Rep #:[id number] : 1995 30 From: Nelson Ulloa DO [...] states she alsohas an appointment with her BOOSTER PUMP OPERATOR in roughly 24 hours but because of the return bleeding she was concerned and presents for evaluation [facility] Medical History Migraine Anxiety Paresthesias Cervical radiculopathy [...] the need for repeat ultrasound or emergent BOOSTER PUMP OPERATOR consultation and she is otherwise safe [...] % (Auto) 54.4 Lymph % (Auto) 37.3 [place] % (Auto) 5.7 Eos % (Auto) 2.0 Baso % (Auto) 0.3 Absolute Neuts (auto) 4.0 Absolute Lymphs (auto) 2.75 Nucleated RBC % 0 HCG, Quant 86988 H Discharge Plan Triage Chief Complaint: Vag Bld, Preg ED Provider: Nelson Ulloa Dx/Rx/DC Orders Clinical Impression: Vaginal bleeding in , Anxiety, Abnormal collection of fluid in uterinecavity Instructions: Bleeding During Early Prescriptions: No Action cephalexin 500 mg capsule 500 mg PO TID 5 Days Qty: 15 0RF PNV 400-yenz-wmfeqt-dha 90 mg iron- 1 mg-200 mg capsule 1 cap PO DAILY Qty: 30 0RF Stand Alone Forms: ED Work / School Excuse Primary Care Provider: ARLINE CORADO Referrals: ARLINE CORADO [Other] Activity Restrictions/Additional Instructions: Please keep your appointment for tomorrow/Sunday, May 11 with your BOOSTER PUMP OPERATOR. Your blood volume has remained stable and your marker increased from 12,000-22,000-36,000 indicating a normal progression in . Return to the ER should you have any further concerns Print Language: [place]ian Disposition Disposition: Home, Self Care Discharge Date/Time: 05/10/25 03:55 What to do if you have Problems For any increased pain, shortness of breath, bleeding, nausea or vomiting, chest pain, or any unexpected problems, contact your Primary Care Provider. Call [facility] ([phone]) or report to the closest Emergency Room. Call 911 if necessary. 05/10/25 0510 Cosigner Signature (if applicable): CC: ARLINE CORADO ~ Signed [facility]10-08-2025 Radiology Diagnostic study note [facility] Imaging Services [address] [place], [place] [address] Transvaginal w/Preg US MR#: [id number] Acct: [id number] Name: BETSY MESA Rep #: [id number] : 1995 F 30 From: Aubrie Meléndez MD PCP: ARLINE CORADO Status: REG ER Study:Transvaginal w/Preg US Date of Exam: 05/06/25 Exam# [id number] Ordering Dr: René Mohan MD PROCEDURE: TRANSVAGINAL [...] x 3.4 x 1.8 cm. Reading Location: [id number] CC: Dr. René Mohan MD; ARLINE CORADO ~ Lay Out Maker: Signed [facility]10-05-2025 Discharge summary [facility] Medical Records Department [address] [place] [place] [address] Emergency Department Summary 05/03/25 MR#: [id number] Acct: [id number] Name: BETSY MESA Rep #:[id number] : 1995 30 From: Ludwig mendezett DO PCP: ARLINE CORADO Status:REG E R [...] Psych: Cooperative, appropriate mood and affect PFSH PFS Medical History Anxiety Paresthesias Cervical [...] secondary to early cramping. Follow-up with her BOOSTER PUMP OPERATOR Lamonte. She confirmed understand the plan. [...] % (Auto) 57.7 Lymph % (Auto) 34.3 [place] % (Auto) 5.6 Eos % (Auto) 1.8 Baso % (Auto) 0.4 Absolute Neuts (auto) 4.8 Absolute Lymphs (auto) 2.84 Nucleated RBC % 0 Sodium 136 Potassium 4.3 Chloride 104 Carbon Dioxide 21.7 Anion Gap 11 BUN 9 Creatinine 0.69 L Estim Creat Clear Calc 159.34 Est GFR (MDRD) Non-Af 120 BUN/Creatinine Ratio 12.3 Glucose 126 H Calcium 9.6 HCG, Quant 77811 H Urine Color Yellow Urine Clarity Clear Urine pH 6.0 Ur Specific [place] 1.025 Urine Protein 30 H Urine Glucose [...] be paid on follow-up imaging. Reading Location: [facility] Brain CT 05/03/25 21:10 IMPRESSION: No acute intracranial CT abnormality. Reading Location: [facility] Discharge Plan Triage Chief Complaint: ED Provider: Ludwig Aranda Dx/Rx/DC Orders Prescriptions: No Action metformin 500 mg tablet 500 mg PO DAILY ibuprofen 600 mg tablet 600 mg PO 4X/DAY PRN (Reason: pain) Qty: 40 0RF Primary Care Provider: ARLINE COARDO Referrals: ARLINE CORADO [Other] Print Language: [place] What to do if you have Problems For any increased pain, shortness of breath, bleeding, nausea or vomiting, chest pain, or any unexpected problems, contact your Primary Care Provider. Call [facility] ([phone]) or report to the closest Emergency Room. Call 911 if necessary. 05/03/25 2761 Cosigner Signature (if applicable): CC: ARLINE CORADO ~ Signed [facility]10-05-2025 Radiology Diagnostic study note [facility] Imaging Services [address] [place] [address] Transvaginal w/Preg US MR#: [id number] Acct: [id number] Name: BETSY MESA Rep #: [id number] : 1995 F 30 From: Omid Verdugo MD PCP: ARLINE CORADO Status: REG E R Study:Transvaginal w/Preg US Date of Exam: 05/03/25 Exam# [id number] Ordering Dr: Ludwig Gold DO PROCEDURE: TRANSVAGINAL [...] be paid on follow-up imaging. Reading Location: [id number] CC: Dr. Ludwig Aranda DO; ARLINE CORADO ~ Lay Out Maker: Signed [facility]10-05-2025 Radiology Diagnostic study note [facility] Imaging Services [address] [place] [address] Brain/Head without Contrast MR#: [id number] Acct: [id number] Name: BETSY MESA Rep #: [id number] : 1995 F 30 From: Omid Verdugo MD PCP: ALRINE CORADO Status: REG E R Study:Brain/Head without Contrast Date of Exa m: 05/03/25 Exam# [id number] Ordering Dr: Ludwig Gold DO PROCEDURE: BRAIN/HEAD [...] No acute intracranial CT abnormality. Reading Location: [facility] CC: Dr. Ludwig Aranda DO; ARLINE CORADO ~ Lay Out Maker: Signed [facility]10-05-2025 Discharge summary Author Ludwig Aranda [facility] Note Date/Time May 03, 2025 11 :29pm [facility] Medical Records Department [address] [place] [address] Emergency Department Summary 05/03/25 MR#: [id number] Acct: [id number] Name: BETSY MESA Rep #:[id number] : 1995 30 From: Ludwig child DO [...] intact Psych: Cooperative, appropriate mood and affect [facility] Medical History Anxiety Paresthesias Cervical radiculopathy Cervicalgia [...] secondary to early cramping. Follow-up with her BOOSTER PUMP OPERATOR Lamonte. She confirmed understand the plan. [...] % (Auto) 57.7 Lymph % (Auto) 34.3 [place] % (Auto) 5.6 Eos % (Auto) 1.8 Baso % (Auto) 0.4 Absolute Neuts (auto) 4.8 Absolute Lymphs (auto) 2.84 Nucleated RBC % 0 Sodium 136 Potassium 4.3 Chloride 104 Carbon Dioxide 21.7 Anion Gap 11 BUN 9 Creatinine 0.69 L Estim Creat Clear Calc 159.34 Est GFR (MDRD) Non-Af 120 BUN/Creatinine Ratio 12.3 Glucose 126 H Calcium 9.6 HCG, Quant 36941 H Urine Color Yellow Urine Clarity Clear Urine pH 6.0 Ur Specific [place] 1.025 Urine Protein 30 H Urine Glucose [...] be paid on follow-up imaging. Reading Location: [id number] Brain CT 05/03/25 21:10 IMPRESSION: No acute intracranial CT abnormality. Reading Location: [id number]-[facility] Discharge Plan Triage Chief Complaint: ED Provider: Ludwig Aranda Dx/Rx/DC Orders Prescriptions: No Action metformin 500 mg tablet 500 mg PO DAILY ibuprofen 600 mg tablet 600 mg PO 4X/DAY PRN (Reason: pain) Qty: 40 0RF Primary Care Provider: ARLINE CORADO Referrals: ARLINE CORADO [Other] Print Language: [place] What to do if you have Problems For any increased pain, shortness of breath, bleeding, nausea or vomiting, chest pain, or any unexpected problems, contact your Primary Care Provider. Call [facility] ([phone]) or report to the closest Emergency Room. Call 911 if necessary. 05/03/252328 <Electronically signed by Ludwig Aranda DO> Cosigner Signature (if applicable): CC: ARLINE CORADO ~ Signed [facility] Work Phone: 1(990) 286-695408-26-2025 Note. MICRO - Microbiology PROCEDURE: Urine Culture [...] Locations *1: This test was performed at: [facility], [address] [place] [address], [facility] , [place] [address]-24[address]25 Hospital Discharge instructionsAdditional Instructions Your blood work today revealed no clinically significant findings and the blood test for was negative. Your history exam and symptoms are most consistent with a viral infection. This should resolve spontaneously over the course of 7 to 10 days. Return [facility] the ER should [facility] Phone: 1(137) 394-991307-23-2025 Hospital Discharge instructions Patient Education 02/18/2025 18:07:52 [...] stores without a prescription. You may use khni-ehr-rdbzccd pain medicine to control pain, unless another [...] or tingling in the hand or arm [employer]. [address] [place] [address]27. All rights reserved. This information is not [...] stores without a prescription. You may use elea-ptc-zcuitqo pain medicine to control pain, unless another [...] or tingling in the hand or arm [employer]. [address] [place] [address] 59392. All rights reserved. This information is not intended as a substitute for professional medical care. Always follow yourhealthcare professional's instructions. Follow Up Care 02/18/2025 16:58:33 With:ARLINE CORADO Address: [address] [place] [address] [phone] When:2-4 days With:THERESA TOLEDO MD, Orthopedic Address: [address] [place] [address] Orthopaedic [facility] [place] [address]- [phone] When:2-4 days [facility] 07-23-2025 Note Discharge Instructions Thank you for allowing [facility] to assist you with your healthcare needs. [...] with ARLINE CORADO When:Within 2-4 days Where:[address] [place] [address]- [phone] Follow Up with THERESA TOLEDO MD, Orthopedic When:Within 2-4 days Where:[address] [place] [address] [facility] [place] [address]- [phone] Allergies Vicodin Medications Please ask your primary [...] check BS daily Unchanged DME (Dexcom G7 [place]side) See instructions Type 2 diabetes mellitus Use [...] instructions BD VENANCIO 2 GEN PEN NDL [id number] Unchanged DME (Lancets) See instructions test BS [...] stores without a prescription. You may use muky-tdo-rgrynvx pain medicine to control pain, unless another [...] or tingling in the hand or arm [phone] [employer]. [address] [place] [address] 15278. All rights reserved. This information is not [...] stores without a prescription. You may use vhdi-nzw-tyiluzi pain medicine to control pain, unless another [...] or tingling in the hand or arm [phone] [employer]. [address] [place] [address], [place] [address]. All rights reserved. This information is not intended as a substitute for professional medical care. Always follow yourhealthcare professional's instructions. Additional Information VACCINATE! IT SAVES LIVES! Members of the community who have not yet received the COVID-19 vaccine and would like to receive it can visit one of [facility] vaccine clinics. There are many vaccine clinic locations within the [facility]. For locations and available times, please visit www.[email or web address].[place].gov/. It is important to note that some COVID mobile vaccine clinics are held outdoors and may be canceled in rainy or stormy conditions. To learn more about pediatric vaccinations (ages 5-11), we invite you to visit the [facility] webpage. https://www.[facility]Reachs.org/pages/2333-Tylkb-Symtxaovchk-Hbyarszuli-Lytmx-Igw stions.htmlTo learn more about the COVID-19 vaccine, we invite you to visit the CDC website for a list of frequently asked questions. https://www.cdc.gov/coronavirus/2019-ncov/vaccines/faq.html [facility] Patient Portal Access Instructions: Stay connected with your healthcare team and access your personal medical information anytime with the [facility] Patient Portal. If you would like a full copy of your medical records please contact the [facility] Medical Records Department Sunday through Sunday between 8a.m. and 4:30p.m. Please follow the directions below to access the portal: 1.Access the email account you provided upon registration to the hospital.2.Look for an invitation email from [facility].3.Open the email and access the invitation link: Accept Invitation to [facility].Fill in the required french to create your account. Sign into www.[employer] with your username and password that you [...] you will allow to register on the [facility] Patient Portal for access to your information. You can also access the [facility] Patient Portal on the FanXchange. Simply click on "Health Records" under "HealthData" and then click on the [employer] logo. HOW TO SAFELY DISPOSE OF PRESCRIPTION [...] Call your local pharmacy or go to [email or web address] to find one close to you.3.Make use of household items: Use cat litter or old coffee grounds to dispose medications if other options arenot available. Mix your drugs with these household products, seal them in an airtight container andthrow it into the garbage. Call [facility]: [phone] to be sure your drugs can be [...] that I should contact my d octor. Patient/Farm Loan Representative Signature: Date/Time: Relationship to Patient: Witness Name/Signature: Date/Time: [facility]07-23-2025 Note* Exam Date Time Procedure Performing Provider Status 02/18/25 5:34 PM XR Wrist Minimum 3 Views Right SHERIN MENDEZ DO; Auth (Verified) [id number] ORIGINAL EXAMINATION: THREE XRAY VIEWS OF THE [...] Sign Date: 02/18/2025 5:53:14 PM Ordering Provider: [facility]06-16-2025 Discharge summary [facility] Medical Records Department [address] [place] [address] Emergency Department Summary 01/11/25 MR#: [id number] Acct: [id number] Name: BETSY MESA Rep #:[id number] : 1995 29 From: Oseas Aviles MD [...] past with a negative workup done at [facility] 1 to 2 years ago. She denies [...] signs stable afebrile blood pressure is little or 97. She does not look septic [...] normal. NIH 0. No facial droop. 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 Fingertip to nose uaqt-gd-lwds within normal limits. No drift. Const Vital [...] normal Motor Exam: strength 5/5 throughout Coordination: nkobyj-ul-ekag test normal and wsyp-yv-tzgo test normal Psych mental status grossly normal, [...] % (Auto) 54.7 Lymph % (Auto) 34.7 [place] % (Auto) 7.3 Eos % (Auto) 2.6 [...] IMPRESSION: No acute intracranial process. Reading Location: [facility] Discharge Plan Triage Chief Complaint: Numb/Ting Other [...] with your primary care physician. Print Language: [place] Disposition Disposition: Home, Self Care What to do if you have Problems For any increased pain, shortness of breath, bleeding, nausea or vomiting, chestpain, or any unexpected problems, contact your Primary Care Provider. Call [facility] ([phone]) or report tothe closest Emergency Room. Call 911 if necessary. 01/12/25 0144 Cosigner Signature (if applicable): CC: No Primary Care Physician ~ Signed [facility]06-15-2025 Radiology Diagnostic study note [facility] Imaging Services [address] [place] [address] Brain/Head without Contrast MR#: [id number] Acct: [id number] Name: BETSY MESA Rep #: [id number] : 1995 F 29 From: Aubrie Meléndez MD PCP: Care Physician,No Primary Status: REG ER Study:Brain/Head without Contrast Date of Exa m: 01/11/25 Exam# [id number] Ordering Dr: Evelin Aviles MD PROCEDURE: BRAIN/HEAD [...] IMPRESSION: No acute intracranial process. Reading Location: [id number] CC: Dr. Oseas Aviles MD; No Primary Care Physician ~ Lay Out Maker: Signed [facility]06-15-2025 Discharge summary Author Oseas Aviles [facility] Note Date/Time January 12, 2025 1:44 am [facility] Medical Records Department [address] [place] [address] Emergency Department Summary 01/11/25 MR#: [id number] Acct: [id number] Name: BETSY MESA Rep #:[id number] : 1995 29 From: Oseas Aviles MD [...] past with a negative workup done at [facility] 1 to 2 years ago. She denies [...] normal. NIH 0. No facial droop. 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 Fingertip to nose swzi-ah-zoum within normal limits. No drift. Const Vital [...] normal Motor Exam: strength 5/5 throughout Coordination: qanxlw-yc-tems test normal and hbvd-jp-eccd test normal Psych mental status grossly normal, [...] % (Auto) 54.7 Lymph % (Auto) 34.7 [place] % (Auto) 7.3 Eos % (Auto) 2.6 [...] IMPRESSION: No acute intracranial process. Reading Location: [facility] Discharge Plan Triage Chief Complaint: Numb/Ting Other [...] with your primary care physician. Print Language: [place] Disposition Disposition: Home, Self Care What to do if you have Problems For any increased pain, shortness of breath, bleeding, nausea or vomiting, chestpain, or any unexpected problems, contact your Primary Care Provider. Call [facility] ([phone]) or report to the closest Emergency Room. Call 911 if necessary. 01/12/25 0144 <Electronically signed by Oseas Aviles MD> Cosigner Signature (if applicable): CC: No Primary Care Physician ~ Signed [facility] Work Phone: 1(627) 633-200503-04-2025 Hospital Discharge instructions Patient Education 09/30/2024 11:35:01 [...] clear why migraines occur, but certain things called" triggers" can raise the risk of having a [...] face You have trouble talking or seeing [phone] [employer]. [address] [place] [address]01. All rights reserved. This information is not intended as a substitute for professional medical care. Always follow yourhealthcare professional's instructions. Follow Up Care 09/30/2024 10:02:36 With:NEUROCDANAE, NEWHALL Address: When:2-4 days With:ARLINE CORADO APRN-SAS ETL DEVELOPER Address: [facility] [place], [place] [address]- [phone] When:2-4 days [facility] 03-04-2025 Note Discharge Instructions Thank you for allowing [facility] to assist you with your healthcare needs. The following is importantdischarge information regarding your hospital visit. Diagnosis from Today's Visit Headache What to Do Next Instructions from Your Care Team No qualifying data available. Post Acute Orders No qualifying data available. You Need to Schedule the Following Appointments Follow Up with [facility] When:Within 2-4 days Follow Up with ARLINE CORADO When:Within 2-4 days Where:[address] [facility] [place] [address]- [phone] Allergies Vicodin Medications Please ask your primary [...] check BS daily Unchanged DME (Dexcom G7 [place]) See instructions Type 2 diabetes mellitus Use [...] instructions BD VENANCIO 2 GEN PEN NDL [id number] Unchanged DME (Lancets) See instructions test BS [...] clear why migraines occur, but certain things called" triggers" can raise the risk of having a [...] face You have trouble talking or seeing [phone] [employer]. [address] [place] [address] 23565. All rights reserved. This information is not intended as a substitute for professional medical care. Always follow yourhealthcare professional's instructions. Additional Information VACCINATE! IT SAVES LIVES! Members of the community who have not yet received the COVID-19 vaccine and would like to receive it can visit one of [facility] vaccine clinics. There are many vaccine clinic locations within the [facility]. For locations and available times, please visit www.[email or web address].[place].gov/. It is important to note that some COVID mobile vaccine clinics are held outdoors and may be canceled in rainy or stormy conditions. To learn more about pediatric vaccinations (ages 5-11), we invite you to visit the [facility] webpage. https://www.[facility].org/pages/2417-Yzjxa-Wwoehpbjwwh-Gonwqmmgjf-Zqqcc-Xlr stions.htmlTo learn more about the COVID-19 vaccine, we invite you to visit the CDC website for a list of frequently asked questions. https://www.cdc.gov/coronavirus/2019-ncov/vaccines/faq.html [facility] Patient Portal Access Instructions: Stay connected with your healthcare team and access your personal medical information anytime with the [facility] Patient Portal. If you would like a full copy of your medical records please contact the [facility] Medical Records Department Sunday through Sunday between 8a.m. and 4:30p.m. Please follow the directions below to access the portal: 1.Access the email account you provided upon registration to the [facility].2.Look for an invitation email from [facility].3.Open the email and access the invitation link: Accept Invitation to [facility]4.Fill in the required french to create your account. Sign into www.Gravity Powerplants with your username and password that you [...] you will allow to register on the [facility] Patient Portal for access to your information. You can also access the [facility] Patient Portal on the FanXchange. Simply click on "Health Records" under "[employer]" and then click on the [employer] logo. HOW TO SAFELY DISPOSE OF PRESCRIPTION [...] Call your local pharmacy or go to [email or web address] to find one close to you.3.Make use of household items: Use cat litter or old coffee grounds to dispose medications if other options arenot available. Mix your drugs with these household products, seal them in an airtight container andthrow it into the garbage. Call [facility]: [phone] to be sure your drugs can be [...] that I should contact my d octor. Patient/Farm Loan Representative Signature: Date/Time: Relationship to Patient: Witness Name/Signature: Date/Time: [facility]10-08-2024 Nurse Note* Irma Lin, TRUMAN - 05/06/2024 3:54 PM EDT Pre Procedure Assessment: Betsy Meas is a 29 year old here for [...] Procedure start time: 162 Procedure end time: 163 Post Procedure Assessment: Time of first post-procedure assessment: 163 Vitals: BP 118/84 HR 94 SpO2 100 RR 20 Bleeding:Light Pain ratin/10 Time of second post-procedure assessment: 1655 Vitals: BP 114/72 HR 97 SpO2 99 RR 20 Bleeding:Light Pain Ratin/10 Irma Lin RN [facility]10-08-2024 Instructions* Patient Instructions* Deana Sethi RN - [...] showers are OK. Important Phone Numbers: [facility] Appointments in Belt Splicer ( Early Assessment Clinics) Tiffany Cormier [facility] at [phone] [facility] at [phone] [facility] at [phone] After 4:30 PM or on weekends, you may reach the on-call Belt Splicer by calling the clinic where you wereseen. [...] for diagnosis or termination for medical reasons. http://www.[employer].ubitus/ [facility]: ending a for a abnormality http://www.healthtalkonline.org/Pregnancy_children/Ending_a_pregnancy_for_fetal_ abnormality Ending a Wanted : support for patients and families ending a after or maternal medical diagnosis https://Privacy NetworksawaRelcy.ubitus Defending Terese: one person's story about loss and collected resources. http://www.Project [employer]ubator.ubitus Taya Barnes: headquarters in [place] but with online support group https://www.Dotspin.org/lmsbbu-nrcc-qcuvbnh-groups.html LOCAL RESOURCES [facility] On, [facility] https://my.[facility].org/locations/[facility], [place]/guest-services/suppo rt MatheusEMaryLMary(Families Experiencing Early Loss) [facility] https://consultqd.[facility].org/gmrzkxtqw-bohqfifej-nyzhbebireu-program-james yenqbh-ukxfbznj-qtcuueis/ [facility] - counseling services [phone] or toll free at [phone] [facility] Support [facility] (not specific to loss) https://my.[facility].org/patients/information/bereavement/support-groups [facility] Counselors with experience with families facing the loss of a baby before . This service may be covered by your insurance. If not, [facility] will not turn anyone away because of inability to pay. or [phone] Ramirez Lozano, local counselor, not associated with [facility] [phone] Some of our families have recommended Ramirez [...] for induction of labor) documented in this encounterOhiohealth10-08-2024 Nurse Note* Irma Lin RN - 05/06/2024 [...] Ratin/10 Irma Lin RN documented in this encounterOhiohealth10-08-2024 NoteHNO ID: [id number] Author: LEELA CURRIE MD Service: ? Author Type: Physician Type: Progress Notes Filed: 05/07/2024 10:35 Note Text: Betsy Mesa is a 29 year old female who presents for problem visit for vaginal bleeding, falling HCG levels. Patient's last menstrual period was 02/18/2024 (within days). Last week was seen for this and dx w/ SAB. Last night started bleeding and went to [facility] ED but long wait so went to [place] ED and they offered patient to go to [facility] or f/u in office. Patient was d/jose home to f/u today. Having waves of cramping nad passing clots, bleeding heavier than a period. Soaked through pads last night then it slowed and passed more clots. OB History T3 L3 SAB0 IAB0 Ectopic0 Multiple0 Live Births3 Food Processor History LMP: 02/18/2024 (Within Days), Recent Age at Menarche: Age at First : Age at Menopause: Food Processor History Comments: Sexual Activity: Yes; Male Contraception: [...] discussed with the Patient or Patient's Authorized Farm Loan Representative. As applicable, any other physician, advance practice provider, medical student, or other health professional student that will be observing or involved in the sensitive examination for educational or training purposes was discussed with the Patient or Authorized Farm Loan Representative. The Patient or Authorized Farm Loan Representative has agreed to proceed with the sensitive examination. (Sensitive examination includes inspection and/or palpation of the breasts, pelvis, prostate and anorectal regions). EXAM: Wt 212 lb (96.2kg) LMP 02/18/2024 GENERAL: in pain, female in mild distress ABDOMEN: soft, non-tender, and no masses PELVIC: external genitalia normal, normal Bartholin's glands, urethra, Garten's glands, no vulvar lesions, no cervical lesions, [...] Currie MD Procedure note (more content not included)...[facility] 05-06-2024 History of Present illness Narrative* Leela Currie MD - 05/06/2024 2:58 PM EDT Betsy Mesa is a 29 year old female who presents for problem visit for vaginal bleeding, falling HCG levels. Patient's last menstrual period was 02/18/2024 (within days). Last week was seen for thisand dx w/ SAB. Last night started bleeding and went to [facility] ED but long wait so went to [place] [facility] they offered patient to go to [facility] at [facility] or f/u in office. Patient was d/jose home to f/u today. Having waves of cramping nad passing clots, bleeding heavier than a period. Soaked through pads last night then it slowed and passed more clots. OB History T3 L3 SAB0 IAB0 Ectopic0 Multiple0 Live Births3 Food Processor History LMP: 02/18/2024 (Within Days), Recent Age at Menarche: Age at First : Age at Menopause: Food Processor History Comments: Sexual Activity: Yes; Male Contraception: [...] discussed with the Patient or Patient's Authorized Farm Loan Representative. As applicable, any other physician, advance practice provider, medical student, or other health professional student that will be observing or involved in the sensitive examination for educational or training purposes was discussed with the Patient or Authorized Farm Loan Representative. The Patient or Authorized Farm Loan Representative has agreed to proceed with the sensitive examination. (Sensitive examination includes inspection and/or palpation of the breasts, pelvis, prostate and anorectal regions). EXAM: Wt 212 lb (96.2kg) LMP 02/18/2024 GENERAL: in pain, female in mild distress ABDOMEN: soft, non-tender, and no masses PELVIC: external genitalia normal, normal Bartholin's glands, urethra, Garten's glands, no vulvar lesions, no cervical lesions, [...] prn Leela Currie MD documented in this encounterOhiohealth10-07-2024 Telephone encounter Note * Telephone Encounter - Scarlett Robledo RN - 05/05/2024 12:23 PM EDT Spoke with patient. She will have another HCG level drawn today since she has an appointment with RR on Sunday. Bleeding a little more. Changing a pad every 2-3 hours for comfort. Not soaking a pad. Scarlett Robledo RN [facility]10-07-2024 Miscellaneous Notes* Telephone Encounter - Scarlett Robledo RN - 05/05/2024 12:23 PM EDT Spoke with patient. She will have another HCG level drawn today since she has an appointment with RR on Sunday. Bleeding a little more. Changing a pad every 2-3 hours for comfort. Not soaking a pad. Scarlett Robledo RN * Telephone Encounter - Iram Lin RN - 05/02/2024 1:59 PM EDT [...] levels. Jose Aranda APRN.CNM documented in this encounterOhiohealth10-04-2024 Telephone encounter Note * Telephone Encounter - Irma Lin RN - 05/02/2024 1:59 PM EDT CP notified Pt. Please leave phone note open to f/u on HCG results. Irma Lin RN [facility]10-04-2024 Telephone encounter Note* Telephone Encounter - Irma Lin RN - 05/02/2024 1:59 PM EDT ----- Message from Jose Aranda APRN.CNM sent at 05/02/2024 1:12 PM EDT ----- HCG level is decreasing. Patient aware that she needs to complete follow up levels. Jose Aranda APRN.CNM [facility]10-03-2024 NoteHNO ID: [id number] Author: KESHAWN MOSCOSO MD Service: ? Author Type: Physician Type: Progress Notes Filed: 05/01/2024 20:43 Note Text: Betsy Mesa is a 29 year old female who presented for motion study technician ultrasound today. Encounter Diagnosis ICD-10-CM 1. with uncertain dates in first trimester Z34.91 Please see report under imaging tab. Keshawn Moscoso MD May 01, 2024 8:37 [facility]10-03-2024 History of Present illness Narrative * Keshawn Moscoso MD - 05/01/2024 8:36 PM EDT Betsy Mesa is a 29 year old female who presented for motion study technician ultrasound today. Encounter Diagnosis ICD-10-CM 1. with uncertain dates in first trimester Z34.91 Please see report under imaging tab. Keshawn Moscoso MD May 01, 2024 8:37 PM documented in this encounterOhiohealth10-03-2024 NoteHNO ID: [id number] Author: JOSE ARANDA APRN.CNM Service: ? Author Type: Physiologist Type: Progress Notes Filed: 05/01/2024 14:31 Note [...] she started spotting and cramping this morning. Food Processor History LMP: 02/18/2024 (Within Days), Age at Menarche: Age at First : Age at Menopause: Food Processor History Comments: Sexual Activity: Yes; Male Contraception: [...] - No s/s of ectopic per US nuclear test technician - Current gestational sac is 82 [...] voice understanding - Support provided Jose Aranda APRN.[facility]10-03-2024 History of Present illness Narrative* Jose Aranda APRN.[facility] - 05/01/2024 1:45 PM EDT Betsy Mesa [...] she started spotting and cramping this morning. Food Processor History LMP: 02/18/2024 (Within Days), Age at Menarche: Age at First : Age at Menopause: Food Processor History Comments: Sexual Activity: Yes; Male Contraception: [...] - No s/s of ectopic per US nuclear test technician - Current gestational sac is 82 [...] provided Jose Aranda APRN.CNM documented in this encounterOhiohealth09-30-2024 NoteHNO ID: [id number] Author: HAURY, SUSHIL, SOFTWARE WRITER.SAS ETL DEVELOPER Service: ? Author Type: Nurse Practitioner Type: [...] L3 SAB0 IAB0 Ectopic0 Multiple0 Live Births3 Food Processor History LMP: 02/18/2024 (Within Days), Having periods Age at Menarche: Age at First : Age at Menopause: 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 As applicable, any other physician, advance practice provider, medical student, or other health professional student that will be observing or involved in the sensitive examination for educational or training purposes was discussed with the Patient or Authorized Farm Loan Representative. The Patient or Authorized Farm Loan Representative has agreed to proceed with the sensitive [...] - ICD9: V22.1, ICD10: Z34.91 - POC ASBESTOS SIDING INSTALLER ULTRASOUND - HCG QUANTITATIVE - COMPLETE BLOOD COUNT - TYPE + SCREEN - URINE CULTURE - PELVIC US WHI - HEMOGLOBIN A1C RTO for formal ultrasound and visit after or sooner as needed. Sushil Villanueva APRN.EVAN Medical Decision Making: Problems: Moderate: New problem with uncertain prognosis Data: Unique test result(s) reviewed: 2 Unique test(s) ordered: 3+ Risk: Low: Low risk from testing/treatment Medical Decision Making Level: 4 - [facility] History of Present illness Narrative* Sushil [...] L3 SAB0 IAB0 Ectopic0 Multiple0 Live Births3 Food Processor History LMP: 02/18/2024 (Within Days), Having periods Age at Menarche: Age at First : Age at Menopause: 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 As applicable, any other physician, advance practice provider, medical student, or other health professional student that will be observing or involved in the sensitive examination for educational or training purposes was discussed with the Patient or Authorized Farm Loan Representative. The Patient or Authorized Farm Loan Representative has agreed to proceed with the sensitive [...] - ICD9: V22.1, ICD10: Z34.91 - POC ASBESTOS SIDING INSTALLER ULTRASOUND - HCG QUANTITATIVE - COMPLETE BLOOD [...] Level: 4 - Moderate documented in this encounterOhiohealth09-27-2024 Evaluation + Plan note Future Scheduled Tests Laboratory* Thyroid Stimulating Hormone 04/25/24 * Free T4 04/25/24 * Free T3 04/25/24 Radiology* US Breast Left Complete 09/15/24 [facility] 08-18-2024 Note. MICRO - Microbiology PROCEDURE: [...] Locations *1: This test was performed at: [facility], [address] [place] [address], [phone]- , [facility] ([place])02-06-2024 Note. MICRO - Microbiology PROCEDURE: Affirm Pathogens [...] *1: This test was performed at: [address], [address] [place], [place] [address]01-03-2024 Note. MICRO - Microbiology PROCEDURE: Urine Culture [...] *1: This test was performed at: [address], [address] [place] [address] ([facility]01-02-2024 Note. MICRO - Microbiology PROCEDURE: Affirm Pathogens [...] Locations *1: This test was performed at: [facility], [address] [place] [address], [phone]- , [facility] ([place])12-11-2023 NoteHNO ID: [id number] Author: GARTH POLANCO RN Service: ? Author Type: Registered Nurse Type: Nursing Progress Note Filed: 12/11/2023 12:58 Note Text: Patient given AVS no questions at this time. Patient walked to main entrance for discharge.[facility]05-13-2024 NoteHNO ID: [id number] Author: LORETA FROST MD Service: Hospital Medicine Author Type: Physician Type: Progress Notes Filed: 12/10/2023 17:34 Note Text: DEPARTMENT OF HOSPITAL MEDICINE Hospital Medicine/Primary Attending: Loreta Frost MD NIGHT AND WEEKEND COVERAGE: After 7pm please page [phone] Subjective: Seen and examined at bedside. No [...] -- 1.9 HEPATIC: No results for input(s): "ALKPHOS", "ALT", "AST", "TBILI", "LIPASE" in the last 168 hours. URINALYSIS:No results for input(s): "PH", "SPGR", "UGLUC", "UBILI", "UKET", "UHB", "UPROT", "UROBIL", "UWBC", "SSA" in the last 168 hours. Invalid input(s): "NITR" CARDIAC: No results for input(s): "PBNP" in the last 168 hours. Problem List Facial numbness (POA: Yes) Nicotine use disorder, F17.2 (POA: Status not on file) PHYSICAL EXAM: BP 154/94 Pulse 80 Temp (Src) 98.8 (Oral) Resp 20 Ht 5' 10" (1.78m) Wt 230 lb (104.3kg) SpO2 97% [...] tab(s) 81 mg ORAL DAILY Given, 12/09 89912/09/234 -- 12/09/232344 activity - mobilize patient (fl,oh) SIGNATURE: Loreta Frost MD PATIENT NAME: Betsy Mesa DATE: December 10, 2023 TIME: 4:02 PM PAGER/CONTACT #: Team color pager Disclaimer: Portions of this note may have been generated using [employer] voice recognition software. Reasonable efforts were made to correct any dictation errors that resulted due to the programming of this software but some may still be present. Please note, the time of this note does not reflect the time I saw this patient today, but the time of this documentation.[facility]05-13-2024 NoteHNO ID: [id number] Author: BOB JOYA LISW Service: Care Management Author Type: Geophysical Laboratory Supervisor Type: Care Mgt Progress Note Filed: 12/10/2023 [...] 10, 2023 TIME: 3:18 PM PAGER/CONTACT #: [phone]23 NoteHNO ID: [id number] Author: GILA ROTH MD Service: ? Author Type: Physician Type: Progress Notes Filed: 12/09/2023 18:41 Note Text: TELESTROKE DOCUMENTATION Name: Betsy Levya : 1995 Referring Site: [facility] Referring Provider: Dr. Muniz Last Known Well (Date/Time): 12/09/23 1615 Neurologist Callback (Date/Time): 12/09/23 8278 Chief Complaint: numbness of right face and [...] telestroke. Thank you for contacting the [facility]. I appreciate the opportunity for allowing me to participate in Betsy Mesa's care. Please feel free to contact me and/or the [facility] at any time if you have any further questions or need additional assistance. Lester Roth MD December 09, 2023 6:40 [facility] History of Present illness Narrative* Gila Roth MD - 12/09/2023 6:40 PM EDT TELESTROKE DOCUMENTATION Name: Betsy Mesa : 1995 Referring Site: [facility] Referring Provider: Dr. Muniz Last Known Well (Date/Time): 12/09/23 1615 Neurologist Callback (Date/Time): 12/09/23 8478 Chief Complaint: numbness of right face and arm HPI: 28 year old female,LKW 9044 who p/w right arm and face numbness [...] telestroke. Thank you for contacting the [facility]. I appreciate the opportunity for allowing me to participate in Betsy Mesa's care. Please feel free to contact me and/or the [facility] at any time if you have any further questions or need additional assistance. Lester Roth MD December 09, 2023 6:40 PM documented in this encounterOhiohealth05-09-2024 Note. MICRO - Microbiology PROCEDURE: Urine Culture [*1] SOURCE: Urine, Clean Catch BODY SITE: COLLECTED DATE/TIME: 12/04/2023 13:30 EDT RECEIVED DATE/TIME: 12/05/2023 07:26 EDT START DATE/TIME: 12/05/2023 07:26 EDT FREE TEXT SOURCE: FINAL REPORTS Final Report [] Verified Date/Time/Personnel: 12/06/2023 14:21 EDT 10,000 - 50,000 cfu/ml Mixed growth consistent with normal urogenital marilu. Performing Locations *1: This test was performed at: [facility], [address] [place] [address], [phone]- , [facility] ([place])08-11-2023 Hospital Discharge instructions* Additional Discharge Instructions Please keep well hydrated and take your medication as prescribed and follow up closely with your primary care doctor. If the symptoms worsen or new symptoms develop return to the Emergency Department (ED) immediately. Call your doctor for additional questions. ED . Instruction/Education Provided DI for Na usea -- [facility] 02-28-2023 Hospital Discharge instructions* Discharge [...] care or concern. documented in this encounterBON VALLEYWISE [facility] MEDICAL CENTERLocal Lift Phone: [phone]) 592-238008-10-2022 Note Discharge Instructions Thank you for allowing [facility] to assist you with your healthcare needs. The following is importantdischarge information regarding your hospital visit. Your Care Team PHYSICIAN, NONE What to do next Follow Up Appointments Follow Up with BOOSTER PUMP OPERATOR, CLINIC When In 6 weeks 04/18/2022 EDT Why: Follow-up as needed Where: [address] [facility] (Mon-Fri from 8:30am - 5:00pm) [place] [address]- Follow Up with [facility] food program; When Someone Will Contact [...] for as needed for constipation Pickup at [facility] #31491 New ibuprofen (ibuprofen 600 mg oral tablet) 1 tab(s) by mouth Every 6 hours as needed for for pain Take with food or milk. Pickup at [facility] #62155 New insulin glargine (Lantus 100 units/ mL10 ml vial solution) 22 unit(s) Subcutaneous (INT) Once a day (in the evening) Refills: 5 Patient needs 6 week supply of 22 units daily Pickup at [facility] #01792 Changed cyclobenzaprine (cyclobenzaprine 5 mg oral tablet) 1 tab(s) by mouth Three (3) times a day Duration: 7 Days Pickup at [facility] #77038 Unchanged famotidine (Pepcid 20 mg oral tablet) 1 tab(s) by mouth Once a day Unchanged multivitamin, (PNV Select) by mouth Once a day Pharmacy Information [facility] #[id number]: [address], [place] [phone] What How Much When Comments Stop Taking [...] you. Follow these instructions at home: Take danp-dty-gfdhpzq and prescription medicines only as told by [...] You have any symptoms of a stroke. "BE FAST" is an easy way to remember the [...] 03/19/2015 Document Revised: 08/22/2019 Document Reviewed: 05/06/2018 [employer] Patient Education 2020 [employer] Hemorrhage hemorrhage is excessive blood loss [...] spinach, red meat, and legumes. Take any uemc-fgd-cilmyuz and prescription medicines only as told by [...] 10/05/2004 Document Revised: 06/28/2018 Document Reviewed: 02/16/2017 [employer] Patient Education 2020 [employer] Home Care Instructions After Delivery After [...] decreases and the color of blood gets nodulizer. Bright red and increased flow may reoccur [...] tender for several weeks. Take prescription or qbmb-pof-fllpxns medications for pain with your care givers [...] straining when trying to pass a stool. Ljxb-noj-inblrae medications, stool softeners, can be used. Check [...] to receive it can visit one of [facility] vaccine clinics. There are many vaccine clinic locations within the [facility]. For locations and available times, please visit www.gettheshot.coronavirus.[place].org. It is important to note that some COVID mobile vaccine clinics are held outdoors and may be canceled in rainy orstormy conditions. To learn more about pediatric vaccinations (ages 5-11), we invite you to visit the [facility] webpage. https://www.[facility].org/pages/2372-Rfqsq-Gmoovgxfwve-Ztwumxfqds-Lurrh-Wiw stions.htmlTo learn more about the COVID-19 vaccine, we invite you to visit the [place] website for a list of frequently asked questions. https://[facility].Wibbitz/assets/Gximtlij-xto-Ifzcncjg/emrfa-Fpmqudy-Vkevulxtwq _Asked-Questions.pdf [facility] [place] [facility] Patient Portal Access Instructions: Stay connected with your healthcare team and access your personal medical information anytime with the [place] [facility] Patient Portal.If you would like a full copy of your medical records, please contact the [facility] Medical Records Department, Sunday through Sunday between 8a.m. and 4:30p.m. Please follow the directions below to access the portal: 1.Access the email account you provided upon registration to the [facility].2.Look for an invitation email from [facility].3.Open the email and access the invitation link: Accept Invitation to [place] [facility]4.Fill in the required french to create your [...] you will allow to register on the [place] [facility] Patient Portal for access to your information. You can also access the [place] [facility] Patient Portal on the [employer]. Simply click on "Health Records" under "HealthData" and then click on the [facility] logo. [...] Call your local pharmacy or go to [email or web address] to find one close to you.3.Make use of household items: Use cat litter or old coffee grounds to dispose medications if other options arenot available. Mix your drugs with these household products, seal them in an airtight container andthrow it into the garbage. Call [facility]: [phone] to be sure your drugs can be [...] that I should contact my d octor. Patient/Farm Loan Representative Signature: Date/Time: Relationship to Patient: Witness Name/Signature: Date[facility]Time[facility] Note A. Received in formalin, labeled with the patients name, Case #[id number], and "placenta" is a bhatia placenta weighing 851 g [...] less than 15% ofthe overall disc volume. Farm Loan Representative sections in 3 cassettes. Dictated by [facility] 08-09-2022 Note A. Received in formalin, labeled with the patients name, Case #[id number], and "placenta" is a bhatia placenta weighing 851 g [...] less than 15% ofthe overall disc volume. Farm Loan Representative sections in 3 cassettes. Dictated by [facility] 08-09-2022 Hospital Discharge instructions Patient Education [...] you. Follow these instructions at home: Take ktjt-xkq-mslpkcf and prescription medicines only as told by [...] You have any symptoms of a stroke. "BE FAST" is an easy way to remember the [...] 03/19/2015 Document Revised: 08/22/2019 Document Reviewed: 05/06/2018 [employer] Patient Education 2020 [employer]. 03/07/2022 07:46:22 Hemorrhage Hemorrhage hemorrhage is excessive [...] spinach, red meat, and legumes. Take any sztb-wdr-jzojlmm and prescription medicines only as told by [...] 10/05/2004 Document Revised: 06/28/2018 Document Reviewed: 02/16/2017 [employer] Patient Education 2020 [employer]. 03/07/2022 07:46:19 7- Home Care Instructions After [...] decreases and the color of blood gets nodulizer. Bright red and increased flow may reoccur [...] tender for several weeks. Take prescription or emit-gsk-solwgzw medications for pain with your care givers [...] straining when trying to pass a stool. Rimf-fhq-jrsxrak medications, stool softeners, can be used. Check [...] flu symptoms.) Follow Up Care 03/05/2022 09:44:05 With:BOOSTER PUMP OPERATOR, CLINIC Address: [address] [place] [address] (Mon-Fri from 8:30am - 5:00pm) [place] [address]- When:04/18/2022 Comments:Follow-up as needed With:[facility] food program; Address:Unknown When: Unknown [facility] 08-09-2022 Note Discharge Instructions Thank you for allowing [facility] to assist you with your healthcare needs. The following is importantdischarge information regarding your hospital visit. Your Care Team PHYSICIAN, NONE What to do next Follow Up Appointments Follow Up with BOOSTER PUMP OPERATOR, CLINIC When In 6 weeks 04/18/2022 EDT Why: Follow-up as needed Where: [address] [facility] (Mon-Fri from 8:30am - 5:00pm) [place] [address]- Follow Up with [facility] food program; When Someone Will Contact [...] for as needed for constipation Pickup at [facility] #76076 New ibuprofen (ibuprofen 600 mg oral tablet) 1 tab(s) by mouth Every 6 hours as needed for for pain Take with food or milk. Pickup at [facility] #42364 New insulin glargine (Lantus 100 units/ mL10 ml vial solution) 22 unit(s) Subcutaneous (INT) Once a day (in the evening) Refills: 5 Patient needs 6 week supply of 22 units daily Pickup at [facility] #44139 Changed cyclobenzaprine (cyclobenzaprine 5 mg oral tablet) 1 tab(s) by mouth Three (3) times a day Duration: 7 Days Pickup at [facility] #32408 Unchanged famotidine (Pepcid 20 mg oral tablet) 1 tab(s) by mouth Once a day Unchanged multivitamin, (PNV Select) by mouth Once a day Pharmacy Information [facility] #30855: [address], [place] [phone] What How Much When Comments Stop Taking [...] you. Follow these instructions at home: Take jwgd-ixg-vzmqfic and prescription medicines only as told by [...] You have any symptoms of a stroke. "BE FAST" is an easy way to remember the [...] 03/19/2015 Document Revised: 08/22/2019 Document Reviewed: 05/06/2018 [employer] Patient Education 2020 [employer]. Hemorrhage hemorrhage is excessive blood loss after [...] spinach, red meat, and legumes. Take any jkbx-kqq-crqrvhb and prescription medicines only as told by [...] 10/05/2004 Document Revised: 06/28/2018 Document Reviewed: 02/16/2017 [employer] Patient Education 2020 [employer]. Home Care Instructions After Delivery After discharge [...] decreases and the color of blood gets nodulizer. Bright red and increased flow may reoccur [...] tender for several weeks. Take prescription or kttc-lrd-rivnpgl medications for pain with your care givers [...] straining when trying to pass a stool. Jyua-ese-sxxfxqj medications, stool softeners, can be used. Check [...] to receive it can visit one of [facility] vaccine clinics. There are many vaccine clinic locations within the [facility]. For locations and available times, please visit [email or web address]. It is important to note that some COVID mobile vaccine clinics are held outdoors and may be canceled in rainy orstormy conditions. To learn more about pediatric vaccinations (ages 5-11), we invite you to visit the [facility] webpage. [email or web address] [email or web address] learn more about the COVID-19 vaccine, we invite you to visit the [facility] website for a list of frequently asked questions. [email or web address]-[email or web address] [facility] Patient Portal Access Instructions: Stay connected with your healthcare team and access your personal medical information anytime with the [facility] Patient Portal.If you would like a full copy of your medical records, please contact the [facility] Medical Records Department, Sunday through Sunday between 8a.m. and 4:30p.m. Please follow the directions below to access the portal: 1.Access the email account you provided upon registration to the [facility].2.Look for an invitation email from [facility].3.Open the email and access the invitation link: Accept Invitation to [facility]4.Fill in the required french to create your account. Sign into www.[employer] with your username and password that you [...] you will allow to register on the [facility] Patient Portal for access to your information. You can also access the [facility] Patient Portal on the [employer] [place]. Simply click on "Health Records" under "HealthData" and then click on the [employer] logo. HOW TO SAFELY DISPOSE OF PRESCRIPTION [...] Call your local pharmacy or go to [email or web address] to find one close to you.3.Make use of household items: Use cat litter or old coffee grounds to dispose medications if other options arenot available. Mix your drugs with these household products, seal them in an airtight container andthrow it into the garbage. Call [facility]: [phone] to be sure your drugs can be [...] aware that I should contact my d rachaelor. Patient/Farm Loan Representative Signature: Date/Time: Relationship to Patient: Witness Name/Signature: Date/Time: [id number] Discharge summary Discharge Diagnosis: (_x) IUP (_) [...] given Rubella: (_x) Rubella immune (_) Rubella ulp-engior-Bsqaiwc given (_) Rubella ptw-oxyvun-Jnpcbxj declined Feeding Rhodes: (_) Breast feeding (_x) [...] SANTO BOWER DO on 03/07/2022 07:36 AM [facility] [id number] Note A. Received in formalin, labeled with the patients name, Case #[id number], and "placenta" is a bhatia placenta weighing 851 g [...] less than 15% ofthe overall disc volume. Farm Loan Representative sections in 3 cassettes. Dictated by [facility] 08-08-2022 Nurse Progress note pt not in room at 10 for post parandial blood sugar check I advised pt not to go outside until we remove iv but she is not compliant Digitally Signed by Mar Conway RN on 2022 10:05 AM [facility] CenterBnfydpow57-22-5021 Note A. Received in formalin, labeled with the patients name, Case #8793, and "placenta" is a bhatia placenta weighing 851 g [...] less than 15% ofthe overall disc volume. Farm Loan Representative sections in 3 cassettes. Dictated by [facility] 08-08-2022 Note A. Received in formalin, labeled with the patients name, Case #8793, and "placenta" is a bhatia placenta weighing 851 g [...] less than 15% ofthe overall disc volume. Farm Loan Representative sections in 3 cassettes. Dictated by [facility] 08-08-2022 Note A. Received in formalin, labeled with the patients name, Case #8793, and "placenta" is a bhatia placenta weighing 851 g [...] less than 15% ofthe overall disc volume. Farm Loan Representative sections in 3 cassettes. Dictated by [facility] 08-07-2022 Evaluation + Plan noteExtracted from: Title:Clinical Document Author:GISELLE BROWNE MD Date:03/05/22 [facility] ADMISSION HISTORY AND PHYSICAL Chief complaint: Contractions [...] BS monitoring. PCN . Monitor per protocol. [facility] 08-07-2022 History and physical note [facility] ADMISSION HISTORY AND PHYSICAL Chief complaint: [...] 05 10:13)36.7(MAR 05 10:13)36.7(MAR 05 10:13) Heart Rate88(AUG 07 10:13)88(MAR 05 10:13)88(MAR 05 10:13) Resp Rate18(MAR [...] GISELLE BROWNE MD on 03/05/2022 10:20 AM [facility] [id number] Anesthesiology Consult note Patient: BETSY MESA Age: 26 years Sex: Female : 1995 Associated Diagnoses: None Author: HAKAN STEWARD Preoperative Information Procedure/ Case: labor epidural Anesthesiologist [...] ADD (attention deficit disorder) / SNOMED CT [id number] / Confirmed Gestational diabetes mellitus, class A>1< / SNOMED CT 034375786 / Confirmed Induction of labor / SNOMED CT 023445951 / Confirmed / SNOMED CT 720895711 / Confirmed / SNOMED CT 998746828 / Confirmed, Active Problems (8) ADD (attention deficit disorder) Gestational diabetes Gestational diabetes Gestational diabetes mellitus, class A>1< Induction of labor Tobacco use Histories Past Medical History: Active ADD (attention deficit disorder) ([id number]) Resolved ([id number]): Onset on 10/23/2018 at 23 years. Resolved on 08/04/2019 at 24 years. Comments: 02/27/2017 EDT 15:51 EDT - SYSTEM System added from documentation. Status documented as Yes on Admission (136994899): Onset on 10/16/2016 at 21 years. Resolved in 2017 at 22 years. ([id number]): Onset on 10/20/2013 at 18 years. Resolved in 2014 at 19 years. ([id number]): Onset on 08/16/2013 at 18 years. Resolved on 05/29/2014 at 19 years. Family History: Diabetes mellitus type 1 Sister Diabetes mellitus type 2 Mother Seizure Sister Procedure history: None (904394844). Social History Social & Psychosocial Habits Alcohol [...] Oral36.7 DegC (MAR 05 10:13) Heart Rate Wnyvmwlat91 bpm (MAR 05 10:30) Resp Rate 18 br/min (MAR 05 10:13) BMI34.51 (MAR 05 10:05) Measurements from flowsheet : Measurements 03/05/2022 10:05 EDT Height 177.8 cm Admission Weight 109.1 kg Bland Body Weight 68.50 kg BSA Admission 2.26 [...] Height 177.8 cm Admission Weight 109.1 kg Bland Body Weight 68.50 kg BSA Admission 2.26 [...] Surrogate No Tubal Sterilization Planned No Discharge [place] Physician darien Written Plan No WIC Participant [...] No Safety Brochure Information Reviewed Yes [facility] [employer] Video Viewed No Teaching Evaluation Needs practice/supervision Preferred Written Language [place] Preferred Spoken Language [place] Chief Complaint labor Mode of Arrival Wheelchair Accompanied by Significant other, Sibling Information Given by Patient Patient's Current Physicians [facility] Emergency Contact Number Emergency Contact Number Belongings [...] Documentation reviewed: Current records. Assessment and Plan [place] Society of Anesthesiologists (ASA) physical status classification: [...] by HAKAN STEWARD on 03/05/2022 10:51 AM [facility] [id number] History and physical note [facility] ADMISSION HISTORY AND PHYSICAL Chief complaint: [...] scant care. care: ODS Obstetric History G1) 2014 41 wk , uncomplicated, 8# 8oz G2) [...] GISELLE BROWNE MD on 03/05/2022 10:20 AM [facility] [id number] History and physical note [facility] ADMISSION HISTORY AND PHYSICAL Chief complaint: [...] GISELLE BROWNE MD on 03/05/2022 10:20 AM [facility] CenterZgbgqqlj01-10-3592 Hospital Discharge instructions Patient Education 01/18/2022 06:55:38 7 - Labor and Delivery Outpatient Instructions(CUSTOM) [facility] DELIVERY OUTPATIENT HOME-GOING INSTRUCTIONS _X_ [...] crackers, bananas, Jell-O, cooked carrots, applesauce. ___ Olds diet. Avoid caffeine, chocolate, alcohol, spiced/greasy foods. [...] the nearest Emergency Room for assistance. Form 820107 D: 07/07 Document Released: 07/16/2006 Document Revised: 07/04/2012 Document Reviewed: 07/16/2006 ExitCare Patient Information 2011 [employer]. Follow Up Care 01/17/2022 14:26:45 With:GATITO ODOM DO Address: [address] [place] [phone]- [phone] When: Unknown Comments:Follow-up as scheduled [facility] 01-09-2022 Hospital Discharge instructions Patient [...] for support. Classes and counselors. Quit-smoking classes process coach people like you through the process. [...] your health. For more information National Cancer [place] Smoking Quitline, [employer].gov/bcycm-rt-lw-expert, 328-11J-WFIY ([phone]) 4571-0410 [employer]. [address] [place] [address]. All rights reserved. This information is not [...] cloves at drugstores. Some pharmacies carry an lwpe-eza-pigtlqn "toothache kit." This contains a paste that you can put on the exposed tooth to make it less sensitive. Put a cold pack on your jaw over the sore area to help reduce pain. You may use bcqq-ptf-dozemwz medicine to ease pain, unless another medicine [...] Pus drains from the tooth or gum [phone] [employer]. [address] [place] [address]. All rights reserved. This information is not intended as a substitute for professional medical care. Always follow yourhealthcare professional's instructions. Follow Up Care 08/07/2021 16:21:41 With:Dental Referral List Address:Unknown When:2-4 days [facility] 10-20-2021 Hospital Discharge instructions Patient [...] diarrhea. Sometimes it causes generalized symptoms like "aching all over," feeling tired, loss of energy, or loss [...] the smoke from others. You may use ztnb-leh-fqsnlsf acetaminophen or ibuprofen for fever, muscle aching, [...] body and be dangerous to your health. Cjcq-kzx-gmbkhvn remedies won't shorten the length of the [...] or as directed by your healthcare provider [phone] [employer]. [address] [place] [address]. All rights reserved. This information is not intended as a substitute for professional medical care. Always follow yourhealthcare professional's instructions. Follow Up Care 05/18/2021 12:09:33 With:Call Physician Referral Address:Unknown When:2-4 days [facility] 08-17-2021 Hospital Discharge instructions* Instructions* Carlitos English, SOFTWARE WRITER - SAS ETL DEVELOPER - 03/15/2021 In the medical field, there [...] be sent through Care Everywhere. * Cough ([place]) documented in [facility] Work Phone: [phone]) 475-462908-09-2021 Taisha independently performed a history and physical [...] 0024 regular rhythm tachycardic rate 142 bpm. SD interval prolonged 220 milliseconds. QRS complex narrow. QTC normal. No ST segment elevations or depressions. No abnormal T-wave inversions. Good R-wave progression through precordial leads. Interpretation of this EKG myself in the absence of a grapple yarder operator is first-degree AV block, sinus tachycardia. [...] provider for clarification. Isreal Kincaid MD 03/07/21 0234[facility] Author Nelson Ulloa [facility] Note Date/Time May 10, 2025 3 :55am [facility] Medical Records Department [address] [place] [address] Emergency Department Summary 05/10/25 MR#: [id number] Acct: [id number] Name: BETSY MESA Rep #:[id number] : 1995 30 From: Nelson Ulloa DO [...] she also has an appointment with her BOOSTER PUMP OPERATOR in roughly 24 hours but because of the return bleeding she was concerned and presents for evaluation [facility] Medical History Migraine Anxiety Paresthesias Cervical radiculopathy [...] the need for repeat ultrasound or emergent BOOSTER PUMP OPERATOR consultation and she is otherwise safe [...] % (Auto) 54.4 Lymph % (Auto) 37.3 [place] % (Auto) 5.7 Eos % (Auto) 2.0 Baso % (Auto) 0.3 Absolute Neuts (auto) 4.0 Absolute Lymphs (auto) 2.75 Nucleated RBC % 0 HCG, Quant 65126 H Discharge Plan Triage Chief Complaint: Vag Bld, Preg ED Provider: Nelson Ulloa Dx/Rx/DC Orders Clinical Impression: Vaginal bleeding in , Anxiety, Abnormal collection of fluid in uterinecavity Instructions: Bleeding During Early Prescriptions: No Action cephalexin 500 mg capsule 500 mg PO TID 5 Days Qty: 15 0RF PNV 974-cbkl-gdblnx-dha 90 mg iron- 1 mg-200 mg capsule 1 cap PO DAILY Qty: 30 0RF Stand Alone Forms: ED Work / School Excuse Primary Care Provider: ARLINE CORADO Referrals: ARLINE CORADO [Other] Activity Restrictions/Additional Instructions: Please keep your appointment for tomorrow/May 11 with your BOOSTER PUMP OPERATOR. Your blood volume has remained stable and your marker increased from 12,000-22,000-36,000 indicating a normal progression in . Return to the ER should you have any further concerns Print Language: [place] Disposition Disposition: Home, Self Care Discharge Date/Time: 05/10/25 03:55 What to do if you have Problems For any increased pain, shortness of breath, bleeding, nausea or vomiting, chest pain, or any unexpected problems, contact your Primary Care Provider. Call [facility] ([phone]) or report to the closest Emergency Room. Call 911 if necessary. 05/10/25 0510 <Electronically signed by Nelson Ulloa DO> Cosigner Signature (if applicable): CC: ARLINE CORADO ~ Signed [facility] Work Phone: Evaluation + Plan note No data available for this section [facility] Evaluation + Plan note Future Appointments Appointment Date:05/26/2024 01:30:00 PM Scheduled Provider:ARLINE CORADO Location:[facility] Appointment Type:PC OV Follow Up [facility] Evaluation + Plan note Future Appointments Appointment Date:11/21/2024 03:30:00 PM Scheduled Provider:ARLINE CORADO Location:[facility] Appointment Type:PC OV Follow Up Future Scheduled Tests Laboratory* Thyroid Stimulating Hormone 04/25/24 * Free T4 04/25/24 * Free T3 04/25/24 Radiology* US Breast Left Complete 09/15/24 [facility] Evaluation note* Diagnosis 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, unspecified Acute cystitis with hematuria Acute cystitis documented in this encounter [facility] Work Phone: Evaluation note* Diagnosis Cough- Primary Vaginal discharge Leukorrhea, not specified as infective documented in this encounter [facility] Work Phone: Evaluation note* Diagnosis Hypertension, unspecified type- Primary documented in this encounter [facility] Work Phone: evaluation note* Diagnosis Numbness- Primary Disturbance of skin sensation [facility]* Diagnosis with uncertain viability, single or unspecified fetus- Primary with uncertain dates in first trimester documented in this encounter [facility] note* Diagnosis Positive test- Primary examination or test, positive result Threatened miscarriage Threatened , unspecified as to episode of care with uncertain dates in first trimester Spotting affecting in first trimester [facility]* Diagnosis with uncertain dates in first trimester [facility]* Diagnosis Incomplete - Primary Unspecified , without mention of complication, incomplete Threatened miscarriage Threatened , unspecified as to episode of care documented in this encounter [facility] noteNo assessment information [facility] Work Phone: Hospital Discharge instructions* Instructions* Isreal Kincaid MD - 03/07/2021 [facility] Long-term residential drug and alcohol rehabilitation services [address] [facility] [phone] [facility] crisis Center 24 hour detox and drop in. Central assessment 8 AM4 PM for adults. [address] [phone] [facility] Appointment only for outpatient treatment services M, W, Th 9AM-9PM, T F 9AM-530PM [address] [facility] [phone] Al-Anon and Alateen M-F 10AM-2PM [phone] or [phone] Alcoholics Anonymous [address] [facility] M-F 9AM-5 PM, Sa 9AM-[address] [phone] [facility] Outpatient/Inpatient/Detox for adults [address] [facility] [phone] Adolescents Treatment/Detox [address] [facility] [phone] [facility] Alcohol and drug counseling and groups. [address] [place] [address] [facility] Drug, alcohol, gambling, and mental health treatment. M-F 8AM-4:30PM [address] [phone], ext [phone] Narcotics Anonymous 24 hour Hotline 4-096-FCVHOPE or [facility] Sober living housing, counseling, vocational education, job referral, recovery coaching [address] [facility] [phone] [facility] Alcohol and Drug Counseling Call for treatment appointment and prevention [address] [facility] [phone] * Attachments The following attachments cannot be sent through Care Everywhere. * UTI (Urinary Tract Infection): Female ([place]) * Substance Use Disorder ([place]) documented in this [facility] Work Phone: Hospital Discharge instructions No data available for this section [facility] Hospital Discharge instructionsNo known hospital discharge instructions.[facility] Hospital Discharge instructions* Additional [facility] for appointment to be seen. Instruction/Education Provided DI for Va ginal Bleeding [facility] Hospital Discharge instructions Additional Instructions Your labs and CAT scan were all good. Follow-up with your primary care physician.[facility] Work Phone: Hospital Discharge instructionsAdditional Instructions Your scan did not show any sign of skull fracture or brain bleed indicating the pain is from soft tissue contusion. You can ice the area to help reduce pain and swelling and also continue the prescribed ibuprofen. Return to the ER should you have any further concerns [facility] Work Phone: Hospital Discharge instructionsAdditional Instructions Follow-up with your BOOSTER PUMP OPERATOR at [facility]. Follow-up with your primary care physician. Return back to ED if symptoms change or worsen. You had bacteria in her urine and therefore we will treat with antibiotics to prevent urinary tract infection.[facility] Work Phone: Hospital Discharge instructionsAdditional Instructions vitamins as directed. Follow-up with your BOOSTER PUMP OPERATOR as scheduled. You will most likely need another ultrasound performed as on your last 2 ultrasound there was an abnormal fluid collection noted adjacent to the gestational sac. Return to the emergency department with increased vaginal bleeding or cramping, new or worsening symptoms.[facility] Work Phone: Hospital Discharge instructionsAdditional Instructions Please keep your appointment for tomorrow/Sunday, May 11 with your BOOSTER PUMP OPERATOR. Your blood volume has remained stable and your marker increased from 12,000-22,000-36,000 indicating a normal progression in . Return to the ER should you have any further [facility] Work Phone: Progress note No data available for this section [facility] Reason for referral (narrative)* Diagnostic Procedure Only (Routine) - Authorized Specialty Diagnoses / Procedures Referred By Contac t Referred To Contact [facility] Diagnoses with uncertain dates in first trimester Procedures PELVIC US WHI US PELVIC NONOBSTETRIC REAL-TIME IMAGE COMPLETE Sushil Villanueva APRN.CNP [address] [place] [address] [facility] [place] [address] Referral ID Status Reason Start Date Expiration Date Visits Requested Visits Authorized [id number] Authorized Auto-Generat ed Referral 04/28/2024 04/28/2025 1 1 [facility] for referral (narrative)No reason for referral information availableWTr[facility] Work Phone: Reason for visit Narrative* Diagnostic Procedure Only (Routine) - Closed Specialty Diagnoses / Procedures Referred By Contac t Referred To Contact [facility] Diagnoses with uncertain dates in first trimester Procedures PELVIC US WHI US PELVIC NONOBSTETRIC REAL-TIME IMAGE COMPLETE Sushil Villanueva APRN.CNP [address] [place] [address] [facility] [address] [place] [address] Referral ID Status Reason Start Date Expiration Date V isits Requested Visits Authorized [id number] Closed Auto-Generate d Referral 04/28/2024 04/28/2025 1 1 [facility] Summary Purpose Family History No Family History Records Found Relationship Condition Age at Onset Recorded Date/T [place] Not Specified Diabetes mellitus Unknown Seizure Unknown Malignant neoplasm Unknown Advance Directives No Advanced Directives Records FoundDocuments on File Type Date Recorded Patient Farm Loan Representative Expl anation Advance Directive(s) 01/29/2019 3:31 PM Date Activated Date Inactivated Comments 12/09/2023 11:45 PM 12/11/2023 4:14 PM Question Answer Comments Full Code Order Discussed With: Patient Date Activated Date Inactivated Comments 12/09/2023 11:45 PM 12/11/2023 4:14 PM Question Answer Comments Full Code Order Discussed With: Patient Advance Directive Response Recorded Date/ Time Do you have a Healthcare Power of Aircraft Cabin Cleaner? No January 11, 2025 10:21pm Advance Directive Response Recorded Date/ Time Do you have a Healthcare Power of Aircraft Cabin Cleaner? No January 11, 2025 10:21pm Do you have a Healthcare Power of Aircraft Cabin Cleaner? No February 05, 2025 1:16am Advance Directive Response Recorded Date/ Time Do you have a Healthcare Power of Aircraft Cabin Cleaner? No January 11, 2025 10:21pm Do you have a Healthcare Power of Aircraft Cabin Cleaner? No February 05, 2025 1:16am Do you have a Healthcare Power of Aircraft Cabin Cleaner? No March 22, 2025 11:27pm Advance Directive Response Recorded Date/ Time Do you have a Healthcare Power of Aircraft Cabin Cleaner? No January 11, 2025 10:21pm Do you have a Healthcare Power of Aircraft Cabin Cleaner? No February 05, 2025 1:16am Do you have a Healthcare Power of Aircraft Cabin Cleaner? No March 22, 2025 11:27pm Do you have a Healthcare Power of Aircraft Cabin Cleaner? No May 03, 2025 7:53pm Advance Directive Response Recorded Date/ Time Do you have a Healthcare Power of Aircraft Cabin Cleaner? No January 11, 2025 10:21pm Do you have a Healthcare Power of Aircraft Cabin Cleaner? No February 05, 2025 1:16am Do you have a Healthcare Power of Aircraft Cabin Cleaner? No March 22, 2025 11:27pm Do you have a Healthcare Power of Aircraft Cabin Cleaner? No May 03, 2025 7:53pm Do you have a Healthcare Power of Aircraft Cabin Cleaner? No May 06, 2025 6:31pm Advance Directive Response Recorded Date/ Time Do you have a Healthcare Power of Aircraft Cabin Cleaner? No February 05, 2025 1:16am Do you have a Healthcare Power of Aircraft Cabin Cleaner? No March 22, 2025 11:27pm Do you have a Healthcare Power of Aircraft Cabin Cleaner? No May 03, 2025 7:53pm Do you have a Healthcare Power of Aircraft Cabin Cleaner? No May 06, 2025 6:31pm Do you have a Healthcare Power of Aircraft Cabin Cleaner? No May 10, 2025 2:02am Chief Complaint [...] DATE CREATED AUTHOR AUTHOR'S ORGANIZ ATION 05/05/2019 [facility] DATE CREATED AUTHOR AUTHOR'S ORGANIZ ATION 04/09/2021 [facility] DATE CREATED AUTHOR AUTHOR'S ORGANIZ ATION 12/07/2021 [facility] DATE CREATED AUTHOR AUTHOR'S ORGANIZ ATION 01/04/2022 [facility] [place] DATE CREATED AUTHOR AUTHOR'S ORGANIZ ATION 10/10/2022 [facility] DATE CREATED AUTHOR AUTHOR'S ORGANIZ ATION 10/18/2023 [facility] DATE CREATED AUTHOR AUTHOR'S ORGANIZ ATION 12/12/2023 [facility] DATE CREATED AUTHOR AUTHOR'S ORGANIZ ATION 03/22/2024 [facility] ([place] DATE CREATED AUTHOR AUTHOR'S ORGANIZ ATION 05/11/2024 [facility] DATE CREATED AUTHOR AUTHOR'S ORGANIZ ATION 06/01/2024 [facility] DATE CREATED AUTHOR AUTHOR'S ORGANIZ ATION 03/11/2025 [facility] DATE CREATED AUTHOR AUTHOR'S ORGANIZ ATION 03/17/2025 [facility] DATE CREATED AUTHOR AUTHOR'S ORGANIZ ATION 03/30/2025 [facility] DATE CREATED AUTHOR AUTHOR'S ORGANIZ ATION 05/20/2025 [facility] DATE CREATED AUTHOR AUTHOR'S ORGANIZ ATION 06/11/2025 [facility] Reason for Visit (unrecogniz ed section [...] over 121 Minutes, ONCE, On Sun09/26/22 at 204, For 1 dose 2102 (New Bag - Prov ider: Martha Varela RN)233 (Stopped - Provider: Martha Varela RN) PRN Medication Order 09/24/2022 09/25/2022 09/26/2022 iopamidol (ISOVUE-370) 76 % injection 75 mL (COMPLETED) 75 mL, IntraVENous, IMG ONCE PRN, 1 dose, Starting on Sun09/26/22 at 2218, Until Sun09/26/22 at 2227, Other 2227 (Given - Provid er: Erica Avila - Comment: [id number] XP 04/23) Source Comments (unrecognize d section and content) In the event this informatio n is protected by the Federal Confidentiality of Alcohol and Drug Abuse Patient Records regulations: The Federal rules restrict any use of the information to criminally investigate or prosecute any alcohol or drug abuse patient.[facility]healthIn the event this information is protected by the Federal Confidentiality of Alcohol and Drug Abuse Patient Records regulations: The Federal rules restrict any use of the information to criminally investigate or prosecute any alcohol or drug abuse patient.[facility]healthIn the event this information is protected by the Federal Confidentiality of Alcohol and Drug Abuse Patient Records regulations: The Federal rules restrict any use of the information to criminally investigate or prosecute any alcohol or drug abuse patient.[facility]healthIn the event this information is protected by the Federal Confidentiality of Alcohol and Drug Abuse Patient Records regulations: The Federal rules restrict any use of the information to criminally investigate or prosecute any alcohol or drug abuse patient.[facility]healthIn the event this information is protected by the Federal Confidentiality of Alcohol and Drug Abuse Patient Records regulations: The Federal rules restrict any use of the information to criminally investigate or prosecute any alcohol or drug abuse patient.[facility]healthIn the event this information is protected by the Federal Confidentiality of Alcohol and Drug Abuse Patient Records regulations: The Federal rules restrict any use of the information to criminally investigate or prosecute any alcohol or drug abuse patient.[facility]healthIn the event this information is protected by the Federal Confidentiality of Alcohol and Drug Abuse Patient Records regulations: The Federal rules restrict any use of the information to criminally investigate or prosecute any alcohol or drug abuse patient.[facility] Care Team (unrecognized sect ion and content) Care Team Personnel Name: PHYSICIAN, NONE Position: Physician Member Role: Primary Care Physician Name: Jocelyn Ojeda RN Position: OB RN Member Role: RN Name: Chris Vidal RN Position: OB RN Member Role: RN Care Team Related Persons Name: DIANA COLON Address: Home [address] [place] [address] [place] [address] [place] Name: DIANA COLON Address: Home [address] [place] [address] Name: BONITA STEPHANIE-VIRAJ-GENARO Address: Home [address] [place] [address] [place] Name: CARA BARCENAS Name: CARA BARCENAS Name: CARA BARCENAS Name: CARA BARCENAS Name: AMELIA LANDEROS Address: Home [address] [place] [address] [place] Care Teams (unrecognized sec tion and [...] 12, 2025 Dr. 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 [employer] provides no warranty or guarantee of the accuracy or completeness of information in this document.
--- NOTE | 2025-06-27 06:41 | EDS_ITS ---
HPI History of Present Illness Chief Complaint: Wound Narrative Narrative: Patient was seen and examined after presenting to ED for concern for need for sutures she states that she had her work gloves on and the water cloth washer back tender ended up hitting her right middle finger causing a small laceration to the PIP of her right third finger. PFSH PFSH Medical History Migraine Anxiety Paresthesias Cervical radiculopathy Cervicalgia Home Medications Medication Instructions Recorded Last Taken Type vitamins no.102-iron 90 1 cap PO DAILY #30 ca ps 05/06/25 Unknown Rx mg-folate 1 mg-dha 200 mg capsule bacitracin 500 unit/gram topical 1 applic topical TID 7 days #14 06/27/25 U nknown Rx ointment grams Allergy/AdvReac Type Severity Reaction Status Date / Time acetaminophen (From Vicodin) Allergy Hives Verified 06/27/25 06:08 hydrocodone (From Vicodin) Allergy Hives Verified 06/27/25 06:08 Family History Other Cancer Diabetes Seizures Social History Smoking Status: Current every day smoker tobacco type: cigarettes Tobacco: How many years used: 6 second hand exposure: Yes alcohol intake: current alcohol intake frequency: holidays/special occasions only substance use type: former substance user Date of last use: used some marijuana in the past ROS ROS ED ROS Narrative Pertinent Positives: Work-related accident causing small laceration to right PIP third digit Pertinent Negatives: Bleeding disorders use of anticoagulation The remainder of review of systems negative unless otherwise stated in the HPI above. Systems reviewed including constitutional, psychiatric, cardiovascular, respiratory, integument, HENT, gastrointestinal. EXAM Physical Exam Narrative Exam Narrative: Patient is afebrile hemodynamically stable does not appear toxic or in distress she has full range of motion of her hand no open significant wounds or puncture wounds no crepitus either she has a very superficial abrasion more like it overlying that PIP of her right third digit intact MSPs compartments are soft Const Vital Signs: 06/27/25 06:07 Temperature 97 F L Temperature Source Temporal Pulse Rate 95 Respiratory Rate 18 Blood Pressure 130/94 H Blood Pressure Mean 106 Pulse Ox 98 MDM MDM MDM Narrative Medical decision making narrative: Nursing notes, triage notes, available previous documentation, and vital signs were reviewed. Any discrepancies noted were addressed. Differential Diagnoses: This is not a pressure injury from a paint gun or an oil down it is from a water pressure hose while she was already wearing gloves Previous Documentation Reviewed: None available or applicable at this time. ED Course: Patient presenting with injury as described above this does not require any sort of laceration repair or labs or imaging she can go home use bacitracin follow-up with her primary care return precautions provided. This note was made utilizing voice recognition software. All attempts were made to correct spelling or other errors prior to note completion. However, due to the fast-paced nature of emergency medicine, some errors may still be present. Discharge Plan Triage Chief Complaint: Wound ED Provider: John Cabrera Dx/Rx/DC Orders Clinical Impression: Abrasion of middle finger Instructions: First Aid: Cuts and Scrapes Prescriptions: New bacitracin 500 unit/gram ointment 1 applic topical TID 7 Days Qty: 14 0RF No Action PNV 302-zahu-bvjlrq-dha 90 mg iron- 1 mg-200 mg capsule 1 cap PO DAILY Qty: 30 0RF Primary Care Provider: Care Physician,No Primary Referrals: Rosita Burden MD [Med Staff - Lunchroom Monitor, Internal Medicine] - As soon as possible Care Physician,No Primary [Primary Care Provider, Medical] Activity Restrictions/Additional Instructions: Follow-up with your primary care doctor you can go ahead and use the ointment that I am prescribing your cream which in the triple antibiotic corpus trees and ointment he can obtain [id number] please follow-up with your doctor. If you start developing redness worsening swelling pain do not hesitate to return Print Language: Marshallese Disposition Disposition: Home, Self Care
[2025-06-27 06:58] VITALS: BP 120/88; PULSE 88; RESP 16; TEMP 36.6; O2SAT 98
--- NOTE | 2025-06-27 06:58 | NURSING ---
[facility] for drug screen required by employer.
== END 2025-06-27 07:04 | disposition home or self-care (01) ==
PROVIDERS: Emergency Provider Specialist/Technologist Athletic Trainer; Visit Provider Specialist/Technologist Athletic Trainer
DX: S60.412A Abrasion of right middle finger, initial encounter (principal); W22.8XXA Striking against or struck by other objects, initial encounter; Y99.0 Civilian activity done for income or pay; F17.210 Nicotine dependence, cigarettes, uncomplicated
CPT/HCPCS: 99283